=== PATIENT | male | born 1970 | race African-American/Black ===

== ENCOUNTER 2018-04-18 07:54 | Emergency (ER) | payer OTHER, MEDICARE ==
[~2018-04-18] VITALS: Ht 162.6 cm; Wt 97.1 kg
[~2018-04-18 07:54] MED LIST: AC325T PO; AC500T PO; ACYC-109 PO; ALIS1TAB4 PO; ALIS1TAB6 PO; ALPR.5T PO; ALPR1T PO; ALPR1TAB11 PO; ALPR2TAB6 PO; AMIL5TAB3 PO; AML2.5T PO; AML5T; AMLO10TA4; AMLO1TAB15 PO; AMLO1TAB20 PO; AMOX500C2 PO; ARPZ10T PO; ASP81CT PO; ASPI-875 PO; ATOR40TA PO; ATOR40TA70 PO; ATRV10T PO; BYSTOLIC; CEFD300C3 PO; CHLO50TA2 PO; CHOLESTROL MED; CLIN300C3 PO; CLN.1T PO; CLON-378; CLON0.1T14 PO; CLON1PAT15; CLON1PAT15 TD; CLON1PAT16 TP; CLON1PAT22 TD; DOXA2TAB2 PO; DULO30CA PO; DULO60CA6 PO; DXZS2T; DXZS4T PO; FENO45CA PO; GABA-488 PO; HCT25T PO; HYDR-3002 PO; HYDR-3156 PO; HYDR25TA4 PO; ISM60TCR PO; ISOS30TA3 PO; LOVA20TA63 PO; METH4TAB PO; METO200T2 PO; METO200T48 PO; METO50TA7; MINO10TA PO; MTP100TCR; NEBI20TA2 PO; NEBI5TAB8 PO; NFNEB10T PO; NITR0.4T12 SL; NTR.4SL SL; OMEG1CAP51 PO; OMG1KC PO; OXC10TCR PO; OXYC-309 PO; OXYC10TA55 PO; OXYM30SP NS; PNT40TEC PO; SPIR25TA5 PO; TEMA15CA PO; TEMA30CA PO; TOPI50TA13 PO; TOPI50TA37 PO; TORS100T14 PO; TRAM-21 PO; TRAZ150T42 PO; TRM50T PO; VENL150C53 PO; VENL150C98 PO; VENL150T4 PO; VERAPAMIL; VILA40TA PO; ZLP10T PO; [UNRECOGNIZED DRUG - CODE] TD; [UNRECOGNIZED DRUG - OTHER]; [UNRECOGNIZED DRUG - OTHER]; [UNRECOGNIZED DRUG - OTHER]; [UNRECOGNIZED DRUG - OTHER]; [UNRECOGNIZED DRUG - OTHER] PO
--- NOTE | 2018-04-18 08:21 | ED Lower Extremity ---
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 Sunday of last week, 8 days ago the patient was walking his door and stepped off of his porch wrong and rolled his ankle inverted and was having pain in his lateral and medial malleolus as well as his proximal fifth metatarsal. He had the foot imaged at his work and they found no fracture. He was started on tramadol which didn't do anything for his pain. He was not a candidate for NSAIDs per his PCP secondary to his history of heart attack and severe high blood pressure on multiple medications to control his blood pressure. Patient is not on blood thinners. The tramadol did not help so he went back to his PCP who started him on morphine 15 mg twice a day. He says that still not helping much and his ankle was not feeling any better a week out. He says his back hurts but is not really his major source of concern. He has been scheduled for physical therapy but that has not started yet. He has not sought chiropractor, back brace. He is using some patches on his back. He is not using a muscle relaxant. Allergies and Home Medications Allergies Coded Allergies: DOROTHYANo Known Allergies (Verified Allergy, Unknown, 01/01/06) No Known Drug Allergies (Unverified , 01/07/09) Home Medications Alprazolam 2 Mg Tablet, 2 MG PO BID PRN for ANXIETY, (Reported) Amiloride HCl 5 Mg Tablet, 5 MG PO EVERY EVENING, (Reported) Aspirin 81 Mg Tablet.dr, 81 MG PO DAILY, (Reported) Atorvastatin Calcium 40 Mg Tablet, 40 MG PO HS, (Reported) Cefdinir 300 Mg Capsule, 300 MG PO BID, (Reported) FILLED 12/17/15 #20 FOR 10 DAY THERAPY Chlorthalidone 50 Mg Tablet, 50 MG PO DAILY, (Reported) Clonidine 1 Each Patch.tdwk, 0.3 MG TP WEEKLY ON SUNDAY, (Reported) Doxazosin Mesylate 2 Mg Tablet, 2 MG PO BID Prescribed by: RJ LEIVA on 12/24/15 1217 Gabapentin 300 Mg Capsule, 300 MG PO DAILY, (Reported) Isosorbide Mononitrate 60 Mg Tab, 60 MG PO DAILY, (Reported) Metoprolol Succinate 200 Mg Tab.er.24h, 200 MG PO EVERY EVENING, (Reported) Nitroglycerin 0.4 Mg Tab, 0 SL PRN, (Reported) 1 TAB EVERY 5 MINUTES X 3 DOSES NEEDED FOR CHEST PAIN [place]-3 Fatty Acids/Fish Oil 1 Each Capsule, 1,000 MG PO BID, (Reported) Oxycodone HCl 10 Mg Tab.er.12h, 10 MG PO Q12H, (Reported) Spironolactone 25 Mg Tablet, 37.5 MG PO DAILY, (Reported) TAKES 1 & 1/2 OF A (25 MG) TABLET Temazepam 15 Mg Capsule, 15 MG PO HS PRN for SLEEP, (Reported) Topiramate 50 Mg Tablet, 50 MG PO BID, (Reported) Venlafaxine HCl 150 Mg Cap.er.24h, 150 MG PO HS, (Reported) Vilazodone Hydrochloride 40 Mg Tablet, 40 MG PO HS, (Reported) Patient Home Medication List Home Medication List Reviewed: Yes Constitutional: No chills, No diaphoresis EENTM: No ear pain, No double vision Respiratory: No cough, No short of breath Cardiovascular: No chest pain, No Hx of Intervention, No palpitations Gastrointestinal: No abdominal pain, No constipation, No nausea, No vomiting Genitourinary: No discharge, No dysuria Musculoskeletal: see HPI, back pain, joint pain Past Qblvfgl-Shpzei-Vkieez Hx Patient Social History Alcohol Use: Denies Use Recreational Drug Use: No Recent Foreign Travel: No Contact w/Someone Who Travel: No Recent Hopitalizations: No Physical Abuse: No Sexual Abuse: No Mistreated: No Fear: No Immunizations Up To Date Tetanus Booster (TDap): Less than 5yrs Date of Pneumonia Vaccine: Aug 27, 2013 Date of Influenza Vaccine: Aug 27, 2013 Seasonal Allergies Seasonal Allergies: No Past Medical History Cardiac, Orthopedic Cardiac: Yes Heart Attack Neurological: No Reproductive Disorders: No Renal Failure Gastroesophageal Reflux Musculoskeletal: Yes Back Injury Endocrine: Yes HEENT: No Anxiety, Depression Nursing Suicide Risk Score: 0 Integumentary: No Family Medical History Cancer, CAD Under 55 Years Old, Diabetes, Hypertension Physical Exam Vital Signs Capillary Refill : Height, Weight, BMI Height: 5'4.00" Weight: 206lbs. 9.3oz. [id number]; 35.5 BMI Method:Estimated General Appearance: WD/WN, no apparent distress HEENT: PERRL/EOMI, pharynx normal Neck: non-tender, full range of motion, normal inspection Cardiovascular: normal peripheral pulses, regular rate, rhythm Respiratory: no respiratory distress, no accessory muscle use Back: normal inspection, vertebral tenderness (starting at high lumbar low thoracic and going down to sacroiliac joint tenderness to palpation both midline and bilateral paraspinous muscles) Ankles: right ankle non-tender; bilateral ankle normal inspection, bilateral ankle normal range of motion; right ankle no evidence of injury; left ankle bone tenderness (posterior lateral malleoli and medial malleoli are tender to palpation), left ankle pain Feet: right foot non-tender; bilateral foot normal inspection, bilateral foot normal range of motion; right foot no evidence of injury; left foot bone tenderness (proximal head of the fifth metatarsal tenderness to palpation. No tenderness over navicular bone), left foot pain Neurologic/Tendon: normal sensation, normal motor functions, normal tendon functions, responds to pain, no evidence tendon injury Neurologic/Psychiatric: no motor/sensory deficits, alert, normal mood/affect, oriented x 3 Skin: normal color, warm/dry Progress/Results/Core Measures Progress Progress Note : Time: 08:22 Progress Note We can recommend some muscle relaxants, Capsacin oil back brace and continue to pursue physical therapy. We have temperature is expectations for improvement in the next 2-4 weeks for his ankle as opposed to one week. He already has crutches , Ney bandage and has been using ice as well as heat. Give him a day off from work and have him follow-up with the PCP tomorrow. Departure Impression Primary Impression: Sprain and strain of foot Additional Impression: Ankle sprain Qualified Codes: S93.402D - Sprain of unspecified ligament of left ankle, subsequent encounter Disposition: 01 HOME, SELF-CARE Condition: Stable Departure-Patient Inst. Decision time for Depature: 08:24 Referrals: NADIR NOEL MD (PCP/Family) Primary Care Physician Patient Instructions: Ankle Sprain (DC) Add. Discharge Instructions: Take the day off and elevate your ankle above the level of your heart. Use the Ney bandage, pain medicines, Tylenol 1000 mg every 8 hours and heat as well as a back brace for your back as necessary. Follow up with her primary care doctor in the next couple days to discuss further management and pursue physical therapy. All discharge instructions reviewed with patient and/or family. Voiced understanding. Scripts Back Brace (Back Stabilizer) 1 Each Each EACH [facility] for Back Pain, #1 Prov: BLANKA LAUREN 04/18/18 Cyclobenzaprine HCl (Cyclobenzaprine HCl) 10 Mg Tablet 10 MG PO Q8H PRN for SPASMS, #20 TAB 0 Refills Prov: BLANKA LAUREN 04/18/18 Copy Copies To 1: WARREN BROOKS TITUS J Apr 18, 2018 08:21
[2018-04-18] MEDS ORDERED: CYCL10TA9 PO (08:28)
[2018-04-18] MEDS ORDERED: BACK1EAC9 MC (08:28)
[2018-04-18] MEDS ORDERED: MORP15TA (08:37)
[2018-04-18 08:55] VITALS: BP 170/113
--- OUTSIDE RECORDS SUMMARY | 2018-04-18 09:53 | XMS REPORT | Clinical Summary ---
Author Author [facility] Organization [facility] Address Unknown Phone Unavailable Care Team Providers Care Carpet Jack Name Role Phone Lali Purvis Unavailable Unavailable Mychart, Generic Provider Unavailable Unavailable Lynnette Giang Unavailable Unavailable Gertrudis Rutherford MD Unavailable Shae Delgado RN Unavailable Unavailable Lori French MD Unavailable Robbie Busby MD PCP Source Comments Some departments are not documenting in the electronic medical record. If you do not see the information that you expected, contact Release of Information in the Health Information Management department at [phone] for further assistance in locating additional records.[facility] Allergies No Known Allergies Current Medications Prescription Sig. Disp. Refills Start End Date Status Date vilazodone (VIIBRYD) 40 Take 40 mg by mouth at Active mg tab bedtime daily. venlafaxine XR (EFFEXOR Take 150 mg by mouth at Active XR) 150 mg capsule bedtime daily. atorvastatin (LIPITOR) 40 Take 40 mg by mouth at Active mg tablet bedtime daily. gabapentin (NEURONTIN) Take 300 mg by mouth at Active 300 mg capsule bedtime daily. fish oil /omega-3 fatty Take 1 Cap by mouth Active acids (SEA-OMEGA) daily. 340/1000 mg capsule ergocalciferol (VITAMIN Take 1 Cap by mouth every 4 Cap 0 01/04/20 Active D-2) 50,000 unit capsule [address](+) Take 40 mg by mouth at Active (NEXIUM) 40 mg capsule bedtime daily. colchicine 0.6 mg tablet Take 0.6 mg by mouth Active daily. ALPRAZolam(+) (XANAX) 2 Take 2 mg by mouth twice Active mg tablet daily as needed for Anxiety. ibuprofen (ADVIL) 200 mg Take 600 mg by mouth Active tablet twice daily as needed for Pain. Take with food. oxymetazoline (AFRIN) Apply 2 sprays to each Active 0.05 % nasal spray nostril as directed daily as needed. cyclosporine (RESTASIS) Place 1 drop into or Active 0.05 % ophthalmic around eye(s) twice emulsion daily. testosterone cypionate(+) Inject into the muscle Active (DEPO-TESTOSTERONE) 100 every 7 days. mg/mL injection oxyCODONE SR (OXYCONTIN) Take 10 mg by mouth twice Active 10 mg ER tablet daily as needed divalproex (DEPAKOTE ER) Take 500 mg by mouth Active 500 mg ER tablet daily. Take with food. nortriptyline (PAMELOR) Take 10 mg by mouth at Active 10 mg capsule bedtime daily. montelukast (SINGULAIR) Take 10 mg by mouth Active 10 mg tablet daily. metFORMIN (GLUCOPHAGE) Take 500 mg by mouth Active 500 mg tablet daily. amantadine (SYMMETREL) Take 1 tablet by mouth Active 100 mg capsule once daily for 5 days. Then take 1 tablet by mouth twice daily. spironolactone Take 1 tablet by mouth 90 tablet 3 10/21/19 Active (ALDACTONE) 50 mg tablet daily. Take with food. 18 busPIRone (BUSPAR) 10 mg Take 10 mg by mouth Active tablet daily. isosorbide mononitrate SR Take 1 tablet by mouth at 90 tablet 3 Active (IMDUR) 60 mg tablet bedtime daily. 18 doxazosin (CARDURA) 4 mg Take 1 tablet by mouth 180 tablet 3 02/14/20 Active tablet twice daily. 18 carvedilol (COREG) 25 mg Take 1.5 tablets by mouth 270 tablet 3 Active tablet twice daily. 18 amLODIPine (NORVASC) 10 Take 1 tablet by mouth 90 tablet 3 20 Active mg tablet daily. This replaces the 18 combination pill valsartan-amlodipine furosemide (LASIX) 20 mg Take 1 tablet by mouth 90 tablet 3 05/30/20 Active tablet every morning. 18 hydrALAZINE (APRESOLINE) Take 1 tablet by mouth 360 tablet 3 02/26/20 Active 50 mg tabletIndications: three times daily. 18 Essential hypertension chlorthalidone (HYGROTON) Take 1 tablet by mouth 90 tablet 3 02/26/20 Active 25 mg tabletIndications: daily. 18 Essential hypertension Active Problems Problem Noted Date Hypertensive emergency 10/19/2017 Resistant hypertension 07/27/2016 Weakness 02/28/2016 Cellulitis 12/27/2015 CKD (chronic kidney disease) 08/06/2015 Depression 08/06/2015 Hyperlipidemia 08/06/2015 Chest pain 12/17/2014 Hypertension 07/13/2014 Mediastinal mass Encounters Date Type Specialty Care Team Description 2018 Telephone Cardiology Lydia Zuniga RN Blood Pressure Readings (Chlorthalidone 25 mg daily along with Hydralazine 50 mg TID) 02/19/2018 Telephone Cardiology Lydia Zuniga RN Elevated Blood Pressure (200/120) 02/13/2018 Refill Cardiology Lydia Zuniga RN Medication Refill from Last 3 Months Immunizations Name Dates Previously Given Next Due Pneumococcal Vaccine 01/02/2016 (23-Bhavana Adult) Family History Medical History Relation Name Comments Hypertension Brother Coronary Artery Disease Brother Hypertension Brother Cancer Brother MM Cancer-Prostate Father Coronary Artery Disease Father Stroke Father Coronary Artery Disease Mother Hypertension Mother Diabetes Type II Other Stroke Other Relation Name Status Comments Brother Alive Brother Alive Brother Alive Brother Alive Brother Alive Brother Alive Brother Alive Brother cardiomyopathy (Age 45) Brother cardiomyopathy (Age 48) Brother Father Mother Alive Other Other Sister Alive Sister Alive Sister Alive Sister cardiomyopathy (Age 62) Social History Tobacco Use Types Packs/Day Years Used Date Never Smoker Smokeless Tobacco: Never Used Alcohol Use Drinks/Week oz/Week Comments No 0 Standard 0.0 drinks or equivalent Sex Assigned at Date Recorded Not on file Last Filed Vital Signs Vital Sign Reading Time Taken Blood Pressure 142/86 11/15/2017 2:10 PM SOLE LEVELER Pulse 75 11/15/2017 2:10 PM SOLE LEVELER Temperature 36.3 C (97.4 F) 10/21/2017 7:13 AM SOLE LEVELER Respiratory Rate - - Oxygen Saturation 98% 10/21/2017 7:13 AM SOLE LEVELER Inhaled Oxygen - - Concentration Weight 102.1 kg (225 lb) 11/15/2017 2:10 PM SOLE LEVELER Height 162.6 cm (5' 4") 11/15/2017 2:10 PM SOLE LEVELER Body Mass Index 38.62 11/15/2017 2:10 PM SOLE LEVELER Plan of Treatment Health Maintenance Due Date Last Done Comments PHYSICAL (COMPREHENSIVE) 1979 EXAM PERTUSSIS VACCINE 1983 TETANUS VACCINE 1989 INFLUENZA VACCINE 06/17/2018 HIV SCREENING Completed 01/01/2016 Results Not on filefrom Last 3 Months
--- OUTSIDE RECORDS SUMMARY | 2018-04-18 10:03 | XMS REPORT | Encounter Summary ---
Author Author [facility] Organization [facility] Address Unknown Phone Unavailable Care Team Providers Care Aquaculture Farmer Name Role Phone Lali Purvis Unavailable Unavailable Mychart, Generic Provider Unavailable Unavailable Lynnette Giang Unavailable Unavailable Gertrudis Rutherford MD Unavailable Shae Delgado RN Unavailable Unavailable Lori French MD Unavailable Robbie Busby MD PCP Reason for Visit * Reason Comments Blood Pressure Readings Chlorthalidone 25 mg daily along with Hydralazine 50 mg TID Encounter Details Date Type Department Care Team Description 2018 Telephone [facility] Cardiology Lyida Zuniga, OMAR [facility]alidone [address] [place] [address] Hydralazine 50 mg TID) [phone] Social History Tobacco Use Types Packs/Day Years Used Date Never Smoker Smokeless Tobacco: Never Used Alcohol Use Drinks/Week oz/Week Comments No 0 Standard 0.0 drinks or equivalent Sex Assigned at Date Recorded Not on file as of this encounter Functional Status Functional Status Response Date of Assessment Does the patient have a hearing impairment: No 10/19/2017 Does the patient have a visual impairment: Yes 02/22/2016 Does the patient have impaired ambulation: Yes 02/22/2016 Does the patient have an activity of daily living No 02/22/2016 (ADL) impairment: Does the patient have an instrumental activity of No 02/22/2016 daily living (IADL) impairment: Cognitive Status Response Date of Assessment Does the patient have a cognitive impairment: No 02/22/2016 as of this encounter Miscellaneous Notes * Telephone Encounter - Lydia Zuniga RN - 03/06/2018 9:39 AM CDT Attempted to reach patient to discuss Dr. Castro's recommendations for proceeding with allergy testing and shots. Left detailed message to continue current medication regimen while monitoring BP at least 2-3 times/week. Dr. Hill's office will contact patient to set up appointment. * Telephone Encounter - Lydia Zuniga RN - 03/06/2018 9:32 AM CDT Called and spoke with Jean Carlos at Dr. Hill's office regarding Dr. Castro's recommendations for patient to proceed with allergy testing and shots. Will fax documentation to fax# [phone]. * Telephone Encounter - Lydia Zuniga RN - 2018 4:22 PM CDT Mr. Friend called and provided readings from last week after starting Chlorthalidone 25 mg daily along with Hydralazine 50 mg TID. BP 157/74 168/73 148/74 154/84 168/[address] Castro's review of BP readings to proceed with allergy testing and allergy shots. Will route to Dr. Castro for review. Patient plans to continue to monitor BP at home. in this encounter Plan of Treatment Not on fileas of this encounter Visit Diagnoses Not on filein this encounter
--- OUTSIDE RECORDS SUMMARY | 2018-04-18 10:09 | XMS REPORT | Encounter Summary ---
Author Author [facility] Organization [facility] Address Unknown Phone Unavailable Care Team Providers Care Entry Level Account Executive Name Role Phone YanivLali Unavailable Unavailable Mychart, Generic Provider Unavailable Unavailable Lynnette Giang Unavailable Unavailable Gertrudis Rutherford MD Unavailable Shae Delgado RN Unavailable Unavailable Lori French MD Unavailable Robbie Busby MD PCP Reason for Visit * Reason Comments Medication Refill Encounter Details Date Type Department Care Team Description 02/13/2018 Refill [facility] Lydia Zuniga, district captain Refill [facility] [place] [address] Social History Tobacco Use Types Packs/Day Years [...] impairment: No 02/22/2016 as of this encounter Plan of Treatment Not on fileas of this encounter Visit Diagnoses Not on filein this encounter
--- OUTSIDE RECORDS SUMMARY | 2018-04-18 10:09 | XMS REPORT | Encounter Summary ---
Author Author [facility] Organization [facility] Address Unknown Phone Unavailable Care Team Providers Care Milk Treater Name Role Phone Lali Purvis Unavailable Unavailable Mychart, Generic Provider Unavailable Unavailable Lynnette Giang Unavailable Unavailable Gertrudis Rutherford MD Unavailable Shae Delgado RN Unavailable Unavailable Lori French MD Unavailable Robbie Busby MD PCP Reason for Visit * Reason Comments Elevated Blood Pressure 200/120 Encounter Details Date Type Department Care Team Description 02/19/2018 Telephone [facility] Cardiology Lydia Blevins RN Elevated Blood Pressure [facility] [id number] (200/120) [address] [place] [address] Social History Tobacco Use Types [...] as of this encounter Miscellaneous Notes * Addendum Note - Lydia Blevins RN - 02/25/2018 12:01 PM CDT Addended by: LYDIA BLEVINS on: 02/25/2018 12:01 PM Modules accepted: Orders * Telephone Encounter - Lydia Blevins RN - 02/25/2018 11:57 AM CDT Connected with patient. Mr. Friend states he does not recall an intolerance to Chlorthalidone and is willing to try 25 mg daily along with Hydralazine 50 mg TID. Will update med list and send scripts to preferred pharmacy. Patient will keep a log of BP readings over the next week and call with update. * Telephone Encounter - Lydia Blevins RN - 02/25/2018 11:17 AM CDT Discussed with Dr. Castro. Verbal orders to start Chlorthalidone 25 mg daily along with Hydralazine 50 mg TID. Patient has taken Chlorthalidone in the past. If patient states he did not tolerate medication, Dr. Castro would like to hold off on the Chlorthalidone and only start Hydralazine [address] Castro would like to hold off on allergy testing and shots until BP is better controlled. Will call and update office of Dr. Hill. Spoke with OMAR Barahona at Dr. Hill's office. [place] verbalized understanding and agreeable to plan. * Telephone Encounter - Lydia Blevins RN - 02/21/2018 9:42 AM CDT Spoke with [place] at Dr. Hill's office regarding allergy shots. Brooklyn states Dr. Hill is asking for clearance from Dr. Castro for allergy testing and allergy shots. Will discuss with Dr. Castro and fax documentation of recommendation. * Telephone Encounter - Lydia Blevins RN - 02/19/2018 4:43 PM CDT Connected with patient today. He confirms he is taking BP medication as prescribed. Patient states he has not been monitoring BP at home recently, but when he was monitoring it was running 140s/80s. Patient denies headache, dizziness/lightheadedness, heart palpitations, or blurred vision. Patient states, "I'm under a lot of stress right now since I started my new job and I am trying to move." Encouraged patient to monitor BP readings at home and will follow up in one week with those readings. Pt agreeable to plan. While on the phone patient states Dr. Hill needs OK from Dr. Castro to receive "allergy shots." Patient could not provide additional information. Jean Carlos from ENT clinic did not mention this earlier while discussing BP. ENT clinic closed for today. Will attempt to call during office hours. # * Telephone Encounter - Lydia Blevins RN - 02/19/2018 3:20 PM CDT Received call from Jean Carlos at Dr. Hill's office today. Patient was being seen in ENT clinic and BP was 200/120. Jean Carlos states patient said he was taking medication as prescribed. She states he has been having "sinus headaches" and was being seen in the clinic for that today. Patient denied any other symptom at the visit. Jean Carlos states their office called patient's primary care provider who encouraged a call to patient's optical instruments supervisor. Attempted to call and speak with patient regarding medications he has been taking and home BP readings. Left message on machine requesting call back to further discuss. in this encounter Plan of Treatment Not on fileas of this encounter Visit Diagnoses Diagnosis Essential hypertension - Primary Unspecified essential hypertension
--- OUTSIDE RECORDS SUMMARY | 2018-04-18 10:10 | XMS REPORT ---
Author Author [facility] Medical Staff Organization [facility] Address [address], [place] [address] Phone [phone] Summary purpose TRANSITION OF CARE AUTO GENERATION Chief Complaint and Reason for Visit Admit Diagnosis 1 HYPERTENSION NOS Problem list No authorized problems tracked for continuity of care are available for this visit. Encounters No authorized problems tracked for encounter diagnoses are available for this visit. Medications No medications recorded for this patient visit Allergies, adverse reactions, alerts Allergen Category Ingredient Status Reaction Severity Onset No known drug allergies No known drug allergies No known drug allergies Confirmed or Verified Immunizations No immunizations recorded for this patient visit Relevant diagnostic tests and/or laboratory data RESULTS Radiology Results [id number]:00 MRI BRAIN W/WO CONT PACs Image DATE OF EXAM: Apr 16 2015 MRI 0036-MRI BRAIN W/WO CONTRAST : RADIOLOGY REPORT DATE OF SERVICE:04/16/2015 HISTORY:Confusion, dizziness, lightheadedness for 1 month. PRE AND POSTCONTRAST MAGNETIC RESONANCE IMAGING OF THE BRAIN 1255 HOURS Cranial imaging was performed in the sagittal, axial, and coronal planes. 15 mL Magnevist was administered for enhancement. The ventricles are normal. There are no masses or midline shift. There is no hemorrhage or infarction. There are a few small foci of hyperintense FLAIR signal within the white matter measuring up to 3 mm. There is a normal pattern of enhancement. The cerebellum and brainstem are normal. Nerves VII and VIII complexes are within normal limits. The bony calvarium appears normal. IMPRESSION:Minimal foci of chronic microvascular ischemic change in the white matter. Otherwise normal pre- and postcontrast magnetic resonance imaging of the brain. MD RABIA Wilkinson/cc04/16/2015 13:10:00 / 04/16/2015 13:16:12 cc:Dr. Sauceda This document has been electronically Signed by: On: DATE OF EXAM: Apr 16 2015 MRI 0036-MRI BRAIN W/WO CONTRAST : RADIOLOGY REPORT DATE OF SERVICE:04/16/2015 HISTORY:Confusion, dizziness, lightheadedness for 1 month. PRE AND POSTCONTRAST MAGNETIC RESONANCE IMAGING OF THE BRAIN 1255 HOURS Cranial imaging was performed in the sagittal, axial, and coronal planes. 15 mL Magnevist was administered for enhancement. The ventricles are normal. There are no masses or midline shift. There is no hemorrhage or infarction. There are a few small foci of hyperintense FLAIR signal within the white matter measuring up to 3 mm. There is a normal pattern of enhancement. The cerebellum and brainstem are normal. Nerves VII and VIII complexes are within normal limits. The bony calvarium appears normal. IMPRESSION:Minimal foci of chronic microvascular ischemic change in the white matter. Otherwise normal pre- and postcontrast magnetic resonance imaging of the brain. Andrea Bailey MD MWD/cc04/16/2015 13:10:00 / 04/16/2015 13:16:12 cc:Dr. Sauceda This document has been electronically Signed by: ANDREA BAILEY On: [id number] Result Amended on 2015-04-21 at 08:55:17. Previous status was [place]. History of procedures Procedure Code Code Type Description Date Performed Performing Physician 98704 CPT-4 MRI BRAIN W/O & W/DYE 04-16-2015 NADIR SAUCEDA A9579 CPT-4 IGNACIO-BASE MR CONTRAST NOS,1ML 04-16-2015 NADIR SAUCEDA Functional status No functional or cognitive status observations are available for this visit. Vital signs No authorized vital signs are available for this visit. Social history No Social History or smoking status observations were recorded for this visit. ( Unknown if ever smoked.) Treatment Plan No treatment plan text is available for this visit. Hospital discharge instructions No discharge instruction text is available for this visit.
--- OUTSIDE RECORDS SUMMARY | 2018-04-18 10:10 | XMS REPORT ---
Author [facility] Medical Staff Organization [facility] Address [address] [place] [address] Phone [phone] Care Team Providers Care Estimating Engineer Name Role Phone NADIR SAUCEDA MD PP [phone] Summary purpose TRANSITION OF CARE AUTO GENERATION Chief Complaint and Reason for Visit No authorized Reason for Visit (Admitting Diagnosis) is available for this visit. Problem list No authorized problems tracked for continuity of care are available for this visit. Encounters No authorized problems tracked for encounter diagnoses are available for this visit. Medications No home medications recorded for this patient visit Allergies, adverse reactions, alerts Allergen Category Ingredient Status Reaction Severity Onset No known drug allergies No known drug allergies No known drug allergies Confirmed or Verified Immunizations No immunizations recorded for this patient visit Relevant diagnostic tests and/or laboratory data No authorized results are available for this patient visit History of procedures No procedures recorded for this patient visit. Functional status No functional or cognitive status [...]
--- OUTSIDE RECORDS SUMMARY | 2018-04-18 10:10 | XMS REPORT ---
Author Author [facility] Medical Staff Organization [facility] Address [address] [place], [place] [address] Phone [phone] Care Team Providers Care Multiskill Operator Name Role Phone NADIR SAUCEDA MD PP [phone] Summary purpose TRANSITION OF CARE AUTO GENERATION Chief Complaint and Reason for Visit Admit Diagnosis 1 CHEST PAIN NOS Problem list No authorized problems tracked for continuity of care are available for this visit. Encounters No authorized problems tracked for encounter diagnoses are available for this visit. Medications Home Medications Medication Directions Started Status Source Lidoderm topical 1 applicator top 3 Times Daily Cream to legs Current Patient recall atorvastatin 40 mg tablet 1 tablet oral At Bed Time Current Patient medication list clonidine 0.3 mg/24 hr weekly transdermal patch 1 applicator TD Weekly Current Patient medication list Exforge 10 mg-320 mg tablet 1 tablet oral 1 Daily Current Patient medication list hydralazine 25 mg tablet 1 tablet oral 2 Times Daily Current Patient medication list isosorbide mononitrate ER 30 mg tablet,extended release 24 hr 1 tablet oral 1 Daily Current Patient medication list metoprolol succinate ER 200 mg tablet,extended release 24 hr 1 tablet oral 1 Daily Current Patient medication list Nitrostat 0.4 mg sublingual tablet 1 tablet SL As Needed Current Patient medication list oxycodone-acetaminophen 5 mg-325 mg tablet 1 tablet oral PRN Every 6 Hours Current Patient medication list spironolactone 100 mg tablet 1/2 tablet oral 1 Daily Discont Patient medication list temazepam 30 mg capsule 1 tablet oral As Needed Current Patient medication list Xanax 1 mg tablet 1 tablet oral 3 Times Daily Current Patient medication list Trilipix 45 mg capsule,delayed release 1 tablet oral 1 Daily Current Patient medication list Protonix 40 mg tablet,delayed release 1 tablet oral 1 Daily Current Patient medication list Effexor XR 150 mg capsule,extended release 1 tablet oral 1 Daily Current Patient medication list verapamil 80 mg tablet 1 tablet oral 3 Times Daily Current Patient's Pharmacy doxazosin 4 mg tablet 1 tablet oral 2 Times Daily Current Patient's Pharmacy Allergies, adverse reactions, alerts Allergen Category Ingredient Status Reaction Severity Onset No known drug allergies No known drug allergies No known drug allergies Confirmed or Verified Immunizations No immunizations recorded for this patient visit Relevant diagnostic tests and/or laboratory data RESULTS Chemistry :00:00 Result Normal Range Units Sodium 141 134-145 mEq/l Potassium L 3.4 3.5-5.1 mEq/l Chloride 104 98-107 mEq/l CO2 23.2 22-28 mEq/l Glucose H 168 70-105 mg/dl BUN 10 7-18 mg/dl Creatinine H 1.48 0.6-1.3 mg/dl Calcium L 8.3 8.4-10.2 mg/dl TP - Total Protein 7.5 6.0-8.3 g/dl Albumin 3.5 3.5-5 g/dl Bilirubin - Total 0.5 0.1-1.0 mg/dl AST 23 10-42 IU/L ALT 32 12-65 IU/L ALP 65 39-107 IU/L Osmolality 284.2 280-300 mOsm/L Albumin/Globulin Ratio 0.9 0-8 Anion GAP 13.8 8-16 BUN/Creatinine Ratio L 6.8 10-20 Estimated GFR 63 >=60 mL/min/1.7 Hematology :00:00 Result Normal Range Units WBC 9.9 4.8-10.8 103/uL RBC 4.8 4.7-6.1 106/uL HGB 14.2 13.0-18.0 g/dl HCT L 41.6 41.9-52.0 % MCV 86.8 80-94 FL MCH 29.6 27-31 pg MCHC 34.1 33-37 g/dl RDW 15.0 11.5-15.5 % PLT 246 130-400 103/uL MPV H 12.3 7.3-10.4 FL Cardiac :00:00 Result Normal Range Units CK 234 39-308 IU/L CKMB 1.4 0-3.6 ng/ml Patient samples may contain heterophilic antibodies that could react with immunoassays to give falsely elevated or depressed results. This Dimension assay has been designed to minimize interference from heterophilic antibodies. Nevertheless, complete elimination of this interference from all patient specimens cannot be guaranteed. A test result that is inconsistent with the clinical picture and patient history should be interpreted with caution. Troponin I < 0.04 0.0-0.4 ng/ml Patient samples may contain heterophilic antibodies that could react in immunoassays to give falsely elevated or depressed results. This Dimension assay has been designed to minimize interference from heterophilic antibodies. Nevertheless, complete elimination of this interference from all patient specimens cannot be guaranteed. A test result that is inconsistent with the clinical picture and patient history should be interpreted with caution. Radiology Results [id number]:00:00 Result Normal Range Units MPV H 12.3 7.3-10.4 FL History of procedures Procedure Code Code Type Description Date Performed Performing Physician 19039 CPT-4 ASSAY OF TROPONIN, QUANT 12-16-2014 RENE FELIPE 13915 CPT-4 ASSAY OF CK (CPK) 12-16-2014 RENE FELIPE 58106 CPT-4 COMPREHEN METABOLIC PANEL 12-16-2014 RENE FELIPE 58560 CPT-4 CREATINE, MB FRACTION 12-16-2014 RENE FELIPE 49328 CPT-4 COMPLETE CBC, AUTOMATED 12-16-2014 RENE FELIPE 98907 CPT-4 ELECTROCARDIOGRAM, TRACING 12-16-2014 RENE FELIPE A9270 CPT-4 NON-COVERED ITEM OR SERVICE 12-16-2014 RENE FELIPE A9270 CPT-4 NON-COVERED ITEM OR SERVICE 12-16-2014 RENE FELIPE 72760 CPT-4 ROUTINE VENIPUNCTURE 12-16-2014 RENE FELIPE 85249 CPT-4 EMERGENCY DEPT VISIT 12-16-2014 RENE FELIPE 45656 CPT-4 EMERGENCY DEPT VISIT 12-16-2014 RENE FELIPE Functional status Functional Status Finding Observation Time Abdomen Appearance round 96-56-135417:15 Abdomen soft 72-59-257774:15 Bowel Sounds present 59-46-446874:15 Ritchie no 40-29-352059:15 Urination normal 27-43-813750:15 Quality sym/unlabored 75-43-743014:15 Secretions no 92-60-183751:15 Breath Sounds RUL clear 89-71-805195:15 Breath Sounds RML clear 36-06-794465:15 Breath Sounds RLL clear 43-98-699603:15 Breath Sounds YARED clear 63-39-367927:15 Breath Sounds LLL clear 02-91-906941:15 Airway natural 32-11-503666:15 Chest Tube no 77-57-173432:15 Oxygen no :25 Temp >100.4 no :15 Temp <96.8 no :15 Chills with rigors no 11-33-761540:15 HR > 90bpm yes :15 Respirations > 20 no :15 Systolic <90 no :15 headache stiff neck no :15 IV Site Location L AC :30 IV Type peripheral :30 IV Site Information discontinued :30 IV Site Patrick 20 13-84-952406:10 IV Site Appearance WNL 19-93-503534:10 IV Site Color clear 00-19-837656:10 IV Site Patent yes [id number]:10 Dressing Type occlusive 17-89-547159:10 Nursing Note pt dismissed to home with new prescription and instructions for new medications, reinforced importance of making follow up appt with provider on sunday, verbalized understanding, pt stated he would come back if chest pain returns or any other problems :30 Vital signs Type Value Date Respiration Rate 18breaths per minute :25 Pulse 84beats per minute :25 Oxygen Saturation 98% :25 BP Systolic 160mmHg :25 BP Diastolic 90mmHg :25 Temperature 98.0F :25 Social history Type Value Smoking Status NEVER SMOKER Treatment Plan No treatment plan text is available for this visit. Hospital discharge instructions Dismissal Condition good Disposition on DC home DC Inst/Educ Give yes Med/Side Effects Rev yes Flu Vac no
--- OUTSIDE RECORDS SUMMARY | 2018-04-18 10:10 | XMS REPORT | Referral Summary ---
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, or unspecified Final: Chronic kidney disease, Stage III (moderate) Final: HEADACHE Final: DIZZINESS AND GIDDINESS Final: UNSPECIFIED CHEST PAIN Final: HEART DISEASE, UNSPECIFIED Discharge Disposition: 01-Home or Self Care Attending Physician: Lili Gu DO Admitting Physician: Aashish Mari MD Vital Signs Most recent to 1 oldest [Reference Range]: Temperature Oral 36.6 degC [35.8-37.3 degC] (04/12/15 3:49 PM) Peripheral Pulse 73 bpm Rate [60-100 bpm] (04/12/15 3:49 PM) Respiratory Rate 20 br/min [14-20 br/min] (04/12/15 3:49 PM) Blood Pressure 114/69 mmHg [90-140/60-90 mmHg] (04/12/15 4:00 PM) SpO2 97 % (04/12/15 3:49 PM) Problem List Condition Effective Dates Status Health Status Informant Acute Active pain(Confirmed) At risk for Active falls(Confirmed)1 Knowledge Active deficit(Confirmed)2 1This problem was added by Discern Expert. 2Problem added automatically by system based on initiation of Knowledge Deficit Plan of Care Allergies, Adverse Reactions, Alerts No Known Allergies Medications aMILoride 5 mg, Oral, Daily, 0 Refill(s) Start Date: 04/09/15 Status: Ordered aspirin 81 mg, Chewed, Daily, 0 Refill(s) Start Date: 04/09/15 Status: Ordered Cardura 4 mg, Oral, BID, 0 Refill(s) Start Date: 04/09/15 Status: Ordered Claritin 10 mg, Oral, Daily, 0 Refill(s) Start Date: 04/09/15 Status: Ordered cloNIDine 0.1 mg/24 hr transdermal film, extended release 1 patches, Topical, q7day, # 5 patches, 0 Refill(s) Start Date: 04/11/15 Status: Ordered Effexor XR 75 mg oral capsule, extended release 75 mg 1 caps, Oral, Daily, do not crush or chew with food take for 1 week then decrease to lower level per PCP, # 7 caps, 0 Refill(s) Start Date: 04/10/15 Status: Ordered Exforge 10 mg-320 mg oral tablet 1 tabs, Oral, Daily, 0 Refill(s) Start Date: 04/09/15 Status: Ordered Fish Oil 2,000 mg, Oral, Daily, 0 Refill(s) Start Date: 04/09/15 Status: Ordered gabapentin 300 mg, Oral, Bedtime (once a day), 0 Refill(s) Start Date: 04/09/15 Status: Ordered hydrALAZINE 50 mg, Oral, QID, 0 Refill(s) Start Date: 04/09/15 Status: Ordered Imdur 60 mg, Oral, qAM, 0 Refill(s) Start Date: 04/09/15 Status: Ordered LamISIL 250 mg, Oral, Daily, 0 Refill(s) Start Date: 04/09/15 Status: Ordered Lipitor 40 mg, Oral, Daily, 0 Refill(s) Start Date: 04/09/15 Status: Ordered Percocet 5/325 oral tablet 1 tabs, Oral, q6hr, as needed for pain, 0 Refill(s) Start Date: 04/09/15 Status: Ordered potassium chloride 20 mEq oral tablet, extended release 20 mEq 1 tabs, Oral, Daily, 0 Refill(s) Start Date: 04/09/15 Status: Ordered Protonix 40 mg, Oral, Daily, 0 Refill(s) Start Date: 04/09/15 Status: Ordered Restasis 0.05% ophthalmic emulsion 1 drops, Eye-Both, q12hr, 0 Refill(s) Start Date: 04/09/15 Status: Ordered Restoril 30 mg, Oral, Bedtime (once a day), 0 Refill(s) Start Date: 04/09/15 Status: Ordered Toprol-XL 100 mg, Oral, Daily, 0 Refill(s) Start Date: 04/09/15 Status: Ordered Viibryd 40 mg, Oral, Daily, 0 Refill(s) Start Date: 04/09/15 Status: Ordered Xanax 2 mg, Oral, TID, as needed for anxiety, 0 Refill(s) Start Date: 04/09/15 Status: Ordered Results Hematology Most recent to 1 oldest [Reference Range]: WBC [4.8-10.8 9.6 10*3/uL 10*3/uL] (04/12/15 6:28 AM) RBC [4.60-6.20 4.88 10*6/uL 10*6/uL] (04/12/15 6:28 AM) Hgb [14.0-18.0 14.6 gm/dL gm/dL] (04/12/15 6:28 AM) Hct [42.0-52.0 %] 43.1 % (04/12/15 6:28 AM) MCV [82.0-99.0 fL] 88.3 fL (04/12/15 6:28 AM) MCH [27.0-32.0 pg] 29.9 pg (04/12/15 6:28 AM) MCHC [32.0-36.0 33.9 gm/dL gm/dL] (04/12/15 6:28 AM) RDW [11.5-14.5 %] 15.1 % *HI* (04/12/15 6:28 AM) Platelet [150-400 271 10*3/uL 10*3/uL] (04/12/15 6:28 AM) MPV [9.4-12.3 fL] 11.6 fL (04/12/15 6:28 AM) Neutrophils [51-75 61 % %] (04/10/15 6:04 AM) Lymphocytes [20-46 34 % %] (04/10/15 6:04 AM) Abn Lymph Man 2 % (04/10/15 6:04 AM) Monocytes [4-11 %] 3 % *LOW* (04/10/15 6:04 AM) Eosinophils [0-4 %] 1 % (04/10/15 6:04 AM) Basophils [0-2 %] 0 % (04/10/15 6:04 AM) Neutro Absolute 6.95 10*3 [1.90-7.00 10*3] (04/10/15 6:04 AM) Lymph Absolute 4.10 10*3 [0.80-3.30 10*3] *HI* (04/10/15 6:04 AM) [place] Absolute 0.34 10*3 [0.30-1.00 10*3] (04/10/15 6:04 AM) Eos Absolute 0.11 10*3 [0.00-0.50 10*3] (04/10/15 6:04 AM) Baso Absolute 0.02 10*3 [0.00-0.20 10*3] (04/10/15 6:04 AM) Nucleated RBC 0.0 /100 WBC Automated [0 /100 (04/10/15 6:04 AM) WBC] Differential Reviewed (04/10/15 6:04 AM) Chemistry Most recent to 1 oldest [Reference Range]: Sodium Lvl [136-144 139 mEq/L mEq/L] (04/12/15 6:28 AM) Potassium Lvl 4.3 mEq/L 1 [3.6-5.1 mEq/L] (04/12/15 6:28 AM) Chloride [99-109 107 mEq/L mEq/L] (04/12/15 6:28 AM) CO2 [22-32 mEq/L] 27 mEq/L (04/12/15 6:28 AM) AGAP [3-20] 5 (04/12/15 6:28 AM) BUN [4-20 mg/dL] 24 mg/dL *HI* (04/12/15 6:28 AM) Glucose Lvl [70-100 109 mg/dL mg/dL] *HI* (04/12/15 6:28 AM) Creatinine Lvl 1.71 mg/dL [0.64-1.27 mg/dL] *HI* (04/12/15 6:28 AM) eGFR [>60] 44 2 *ABN* (04/12/15 6:28 AM) Calcium Lvl 9.8 mg/dL [8.6-10.0 mg/dL] (04/12/15 6:28 AM) Albumin Lvl [3.5-4.8 3.7 gm/dL gm/dL] (04/09/15 12:53 PM) Total Protein 7.1 gm/dL [6.1-7.9 gm/dL] (04/09/15 12:53 PM) Globulin [1.9-4.3 3.4 gm/dL gm/dL] (04/09/15 12:53 PM) ALT [17-63 U/L] 24 U/L (04/09/15 12:53 PM) AST [15-41 U/L] 24 U/L (04/09/15 12:53 PM) Alk Phos [26-104 60 U/L U/L] (04/09/15 12:53 PM) Bili Total [0.2-1.2 0.9 mg/dL 3 mg/dL] (04/09/15 12:53 PM) Magnesium Lvl 2.2 mg/dL [1.8-2.5 mg/dL] (04/11/15 6:10 AM) Phosphorus [2.4-4.7 4.3 mg/dL 4 mg/dL] (04/11/15 6:10 AM) BNP [0-99 pg/mL] 58 pg/mL (04/09/15 12:53 PM) Troponin [<0.06 <0.05 ng/mL ng/mL] (04/10/15 12:27 AM) Cortisol AM [7-18 12 mcg/dL mcg/dL] (04/10/15 6:04 AM) TSH with Reflex Free 1.36 T4 [0.35-5.50] (04/10/15 6:04 AM) Aldosterone-[place] 9.2 ng/dL 5 [<=21 ng/dL] (04/09/15 3:09 PM) Renin Activity-[place] 0.6 6 (04/09/15 3:09 PM) 1Result Comment: Hemolyzed specimen. The following test may be affected: Potassium. 2Result Comment: Multiply eGFR results by 1.21 for race. 3Result Comment: Naproxen, specifically the metabolite O-desmethylnaproxen, may cause spurious elevation in Total Bilirubin levels. 4Result Comment: High dosages of liposomal Amphotericin B (AmBisome) therapy or other drug preparations that use a liposomal envelope to facilitate drug delivery may cause falsely elevated results for phosphorus. 5Result Comment: ADDITIONAL INFORMATION Reference range for patients 11 years and older is based on upright A.M. collection from subjects without sodium restrictions. Test Performed by: [place] [address] Detective Chief: Kenny De Oliveira II, M.D., Ph.D. 6Result Comment: REFERENCE VALUE (Peripheral vein specimen) Na-deplete, upright: Mean: 5.9 Range: 2.9-10.8 Na-replete, upright: Mean: 1.0 Range: <=0.6-3.0 Test Performed by: [place] [address] Detective Chief: Kenny De Oliveira II, M.D., Ph.D. Urinalysis Most recent to 1 oldest [Reference Range]: UA Color Dk Yellow (04/10/15 2:06 PM) UA Appear Clear (04/10/15 2:06 PM) UA pH [5.0-8.0] 5.0 (04/10/15 2:06 PM) UA Leuk Est Negative [Negative] (04/10/15 2:06 PM) UA Nitrite Negative [Negative] (04/10/15 2:06 PM) UA Protein Negative [Negative] (04/10/15 2:06 PM) UA Glucose Negative [Negative] (04/10/15 2:06 PM) UA Ketones Negative [Negative] (04/10/15 2:06 PM) UA Urobilinogen Negative [<1.0] (04/10/15 2:06 PM) UA Bili [Negative] Negative (04/10/15 2:06 PM) UA Blood [Negative] Negative (04/10/15 2:06 PM) UA Spec Grav 1.023 [1.003-1.030] (04/10/15 2:06 PM) Type Voided (04/10/15 2:06 PM) Immunizations No data available for this section Procedures Procedure Date Related Diagnosis Body Site Angiogram1 1pt does not remember if they put in stents Social History Social History Type Response Smoking Status Never smoker Assessment and Plan No data available for this section
--- OUTSIDE RECORDS SUMMARY | 2018-04-18 10:10 | XMS REPORT ---
Author Author [facility] Medical Staff Organization [facility] Address [address], [place] [address] Phone [phone] Care Team Providers Care Car Installations Supervisor Name Role Phone NADIR SAUCEDA MD PP [phone] Summary purpose TRANSITION OF CARE AUTO GENERATION [...] diagnostic tests and/or laboratory data RESULTS Chemistry [id number]:00:00 Result Normal Range Units Sodium 140 134-145 mEq/l Potassium 3.8 3.5-5.1 mEq/l Chloride 103 98-107 mEq/l CO2 24.8 22-28 mEq/l Glucose H 120 70-105 mg/dl BUN H 20 7-18 mg/dl Creatinine H 1.67 0.6-1.3 mg/dl Calcium 9.0 8.4-10.2 mg/dl Osmolality 283.2 280-300 mOsm/L Anion GAP 12.2 8-16 BUN/Creatinine Ratio 12.0 10-20 Estimated GFR L 55 >=60 mL/min/1.7 Reference Lab (Sendout) [id number]:00:00 Result Normal Range Units Aldosterone 10 ng/dL Adult Reference Ranges for Aldosterone, LC/MS/MS: Upright 8:00-10:00 am< or=28 ng/dL Upright 4:00-6:00 pm < or=21 ng/dL Supine8:00-10:00 am3-16 ng/dL TEST PERFORMED AT: [facility] [address] [place] [address] JESSIE STAFFORD MD PHD Renin 0.77 0.25-5.82 TEST PERFORMED AT: [facility] [address] [place] [address] JESSIE STAFFORD MD PHD Cortisol 9.3 mcg/dL Reference Range: For 8 a.m.(7-9 a.m.) Specimen: 4.0-22.0 Reference Range: For 4 p.m.(3-5 p.m.) Specimen: 3.0-17.0 * Please interpret above results accordingly * TEST PERFORMED AT: [facility] [place] [address] [place] [address] SAMUEL BURLESON DO,MPH Thyroid Testing [id number]:00:00 Result Normal Range Units TSH 1.68 0.34-4.82 uIU/mL History of procedures Procedure Code Code Type Description Date Performed Performing Physician 54906 CPT-4 METABOLIC PANEL TOTAL CA 12-24-2014 SHANTELL PETERSEN 05407 CPT-4 ASSAY OF RENIN 12-24-2014 SHANTELL PETERSEN 72902 CPT-4 ASSAY OF ALDOSTERONE 12-24-2014 SHANTELL PETERSEN 29176 CPT-4 TOTAL CORTISOL 12-24-2014 SHANTELL PETERSEN 04335 CPT-4 ASSAY THYROID STIM HORMONE 12-24-2014 SHANTELL PETERSEN 18331 CPT-4 ROUTINE VENIPUNCTURE 12-24-2014 SHANTELL PETERSEN 58327 CPT-4 ROUTINE VENIPUNCTURE 12-24-2014 SHANTELL ALEJANDROPTA Functional status No functional or cognitive status [...]
--- OUTSIDE RECORDS SUMMARY | 2018-04-18 10:10 | XMS REPORT ---
Author Author [facility] Medical Staff Organization [facility] Address [address] [place], [place] [address] Phone [phone] Care Team Providers Care Customer Sales Advisor Name Role Phone NADIR SAUCEDA MD PP [phone] Summary purpose TRANSITION OF CARE AUTO GENERATION [...] diagnostic tests and/or laboratory data RESULTS Chemistry [id number]:00:00 Result Normal Range Units Sodium 140 134-145 mEq/l Potassium 3.8 3.5-5.1 mEq/l Chloride 103 98-107 mEq/l CO2 24.8 22-28 mEq/l Glucose H 120 70-105 mg/dl BUN H 20 7-18 mg/dl Creatinine H 1.67 0.6-1.3 mg/dl Calcium 9.0 8.4-10.2 mg/dl Osmolality 283.2 280-300 mOsm/L Anion GAP 12.2 8-16 BUN/Creatinine Ratio 12.0 10-20 Estimated GFR L 55 >=60 mL/min/1.7 Thyroid Testing [id number]:00 Result Normal Range Units TSH 1.68 0.34-4.82 uIU/mL History of procedures No procedures recorded for [...]
--- OUTSIDE RECORDS SUMMARY | 2018-04-18 10:11 | XMS REPORT ---
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 Making Machine Operator Name Role Phone NADIR BUSBY MD PP [phone] Summary purpose TRANSITION OF CARE AUTO GENERATION [...] mg tablet 1/2 tablet oral 1 Daily Current Patient medication list temazepam 30 mg capsule [...] oral 1 Daily Current Patient medication list Allergies, adverse reactions, alerts Allergen Category Ingredient Status Reaction Severity Onset No known drug allergies No known drug allergies No known drug allergies Confirmed or Verified Immunizations No immunizations recorded for this patient visit Relevant diagnostic tests and/or laboratory data RESULTS Chemistry :45:00 Result Normal Range Units Sodium 144 134-145 mEq/l Potassium 3.6 3.5-5.1 mEq/l Chloride 107 98-107 mEq/l CO2 26.6 22-28 mEq/l Glucose 99 70-105 mg/dl BUN 18 7-18 mg/dl Creatinine H 2.03 0.6-1.3 mg/dl Calcium 9.0 8.4-10.2 mg/dl TP - Total Protein 7.7 6.0-8.3 g/dl Albumin 3.7 3.5-5 g/dl Bilirubin - Total 0.5 0.1-1.0 mg/dl AST 25 10-42 IU/L ALT 32 12-65 IU/L ALP 66 39-107 IU/L Osmolality 288.8 280-300 mOsm/L Albumin/Globulin Ratio 0.9 0-8 Anion GAP 10.4 8-16 BUN/Creatinine Ratio L 8.9 10-20 Estimated GFR L 44 >=60 mL/min/1.7 Hematology :45:00 Result Normal Range Units WBC H 13.7 4.8-10.8 103/uL RBC 4.9 4.7-6.1 106/uL HGB 14.4 13.0-18.0 g/dl HCT 42.8 41.9-52.0 % MCV 87.5 80-94 FL MCH 29.4 27-31 pg MCHC 33.6 33-37 g/dl RDW 14.9 11.5-15.5 % PLT 239 130-400 103/uL MPV H 11.8 7.3-10.4 FL Cardiac :45:00 Result Normal Range Units CK H 335 39-308 IU/L CKMB 1.2 0-3.6 ng/ml Patient samples may contain heterophilic [...] should be interpreted with caution. Troponin I 0.13 0.0-0.4 ng/ml Patient samples may contain heterophilic [...] should be interpreted with caution. Radiology Results 30-30-642546:20:00 Chest XRay - Port - 1 View PACs Image DATE OF EXAM: Dec 14 2014 RAD 0292-CHEST 1 VIEW PORT : RADIOLOGY REPORT DATE OF SERVICE: 12/14/14 HISTORY: Patient has hypertension and chest pain. PORTABLE ONE VIEW CHEST 2250 HOURS Heart and mediastinum are unremarkable. Lungs are clear. No effusion is seen. IMPRESSION: Negative study of the chest unchanged from 05/21/2014. Wellington Thomas DO /nd 12/15/2014 08:33:00 / 12/15/2014 09:43:32 cc:Dr. Nadir Busby This document has been electronically Signed by: On: 01-61-593636:45:00 Result Normal Range Units MPV H 11.8 7.3-10.4 FL History of procedures No procedures recorded for this patient visit. Functional status Functional Status Finding Observation Time Abdomen Appearance flat 41-50-024713:36 Abdomen soft 61-43-629009:36 Bowel Sounds present 16-19-155460:36 Urination normal 34-86-365342:36 Quality sym/unlabored 52-34-681277:36 Secretions no :36 Breath Sounds RUL clear 86-90-674854:36 Breath Sounds RML clear 49-09-136462:36 Breath Sounds RLL clear 66-97-150666:36 Breath Sounds YARED clear 53-00-565659:36 Breath Sounds LLL clear 93-40-065574:36 Airway natural 98-15-510719:36 Chest Tube no 79-67-133796:36 Oxygen no 73-85-205771:00 Temp >100.4 no 46-87-667562:36 Temp <96.8 no 55-81-082390:36 Chills with rigors no 03-69-216493:36 HR > 90bpm yes :36 Respirations > 20 no :36 Systolic <90 no :36 headache stiff neck no :36 Nursing Note Pt was given home instructions and Pt was amblatory off of floor in stable condtion :15 Vital signs Type Value Date Respiration Rate 20breaths per minute 29-73-752027:00 Pulse 92beats per minute :00 Oxygen Saturation 99% :00 BP Systolic 178mmHg :00 BP Diastolic 117mmHg :00 Temperature 97.8F :00 Weight 209LB 07-49-761324:15 Social history Type Value Smoking Status NEVER SMOKER Treatment Plan No treatment plan text is available for this visit. Hospital discharge instructions Dismissal Condition fair Disposition on DC home DC Inst/Educ Give yes Flu Vac no
--- OUTSIDE RECORDS SUMMARY | 2018-04-18 10:11 | XMS REPORT ---
Author [facility] Medical [facility] Organization [facility] Address [address] [place] [id number] Phone [phone] Care Team Providers Care Winemaker Name Role Phone NADIR SAUCEDA MD PP [phone] Summary purpose TRANSITION OF CARE AUTO GENERATION [...] should be interpreted with caution. Radiology Results :00:00 Result Normal Range Units MPV H 12.3 7.3-10.4 FL History of procedures No procedures recorded for this patient visit. Functional status Functional Status Finding Observation Time Abdomen Appearance round 49-59-225016:15 Abdomen soft 67-13-192258:15 Bowel Sounds present 15-17-520957:15 Ritchie no 24-32-820871:15 Urination normal :15 Quality sym/unlabored :15 Secretions no :15 Breath Sounds RUL clear 76-33-565398:15 Breath Sounds RML clear 78-38-251065:15 Breath Sounds RLL clear :15 Breath Sounds YARED clear :15 Breath Sounds LLL clear 69-89-716620:15 Airway natural :15 Chest Tube no :15 Oxygen no :25 Temp >100.4 no :15 Temp <96.8 no :15 Chills with rigors no :15 HR > 90bpm yes :15 Respirations > 20 no :15 Systolic <90 no :15 headache stiff neck no :15 IV Site Location L AC :30 IV Type peripheral :30 IV Site Information discontinued :30 IV Site Patrick 20 43-66-587510:10 IV Site Appearance WNL :10 IV Site Color clear 49-37-660200:10 IV Site Patent yes 33-15-321378:10 Dressing Type occlusive 61-78-407166:10 Nursing Note pt dismissed to home with [...] BP Systolic 160mmHg :25 BP Diastolic 90mmHg 33-41-576681:25 Temperature 98.0F 76-58-853475:25 Social history Type Value Smoking Status NEVER SMOKER Treatment Plan No treatment plan text is available for this visit. Hospital discharge instructions Dismissal Condition good Disposition on DC home DC Inst/Educ Give yes Med/Side Effects Rev yes Flu Vac no
--- OUTSIDE RECORDS SUMMARY | 2018-04-18 10:11 | XMS REPORT ---
Author Author [facility] Medical Staff Organization [facility] Address [address], [place] [address] Phone [phone] Care Team Providers Care Social Work Associate Name Role Phone NADIR SAUCEDA MD PP [phone] Summary purpose TRANSITION OF CARE AUTO GENERATION Chief Complaint and Reason for Visit Admit Diagnosis 1 HTN CKD NOS I-IV/NOS Problem list No authorized problems tracked for [...] diagnostic tests and/or laboratory data RESULTS Chemistry 51-31-190108:40:00 Result Normal Range Units Sodium 143 134-145 mEq/l Potassium 3.6 3.5-5.1 mEq/l Chloride 104 98-107 mEq/l CO2 H 28.1 22-28 mEq/l Glucose H 116 70-105 mg/dl BUN 9 7-18 mg/dl Creatinine H 1.32 0.6-1.3 mg/dl Calcium 8.8 8.4-10.2 mg/dl PO4 3.0 1.9-4.5 mg/dl Albumin 3.5 3.5-5 g/dl Osmolality 284.6 280-300 mOsm/L Anion GAP 10.9 8-16 BUN/Creatinine Ratio L 6.8 10-20 Estimated GFR 72 >=60 mL/min/1.7 History of procedures Procedure Code Code Type Description Date Performed Performing Physician 99461 CPT-4 RENAL FUNCTION PANEL 03-29-2015 MILES FAUST 32210 CPT-4 ROUTINE VENIPUNCTURE 03-29-2015 MILES FAUST Functional status No functional or cognitive status [...]
--- OUTSIDE RECORDS SUMMARY | 2018-04-18 10:11 | XMS REPORT ---
Author [facility] Medical Staff Organization [facility] Address [address] [place] [id number] Phone [phone] Care Team Providers Care Annual Greenhouse Manager Name Role Phone NADIR SAUCEDA MD PP [phone] Summary purpose TRANSITION OF CARE AUTO GENERATION [...]
--- OUTSIDE RECORDS SUMMARY | 2018-04-18 10:11 | XMS REPORT ---
Author Author [facility] [employer] [facility] Medical Staff Organization [facility] Address [address] [place], [place] [address] Phone [phone] Summary purpose TRANSITION OF CARE AUTO GENERATION [...]
--- OUTSIDE RECORDS SUMMARY | 2018-04-18 10:11 | XMS REPORT ---
Author [facility] [employer] [facility] Medical Staff Organization [facility] Address [address], [place] [address] Phone [phone] Care Team Providers Care Food And Drug Inspector Name Role Phone NADIR BUSBY MD PP [phone] Summary purpose TRANSITION OF CARE AUTO GENERATION [...] should be interpreted with caution. Radiology Results 42-09-938002:20:00 Chest XRay - Port - 1 View PACs Image DATE OF EXAM: Dec 14 2014 RAD 0292-CHEST 1 VIEW PORT : RADIOLOGY REPORT DATE OF SERVICE: 12/14/14 HISTORY: Patient has hypertension and chest pain. PORTABLE ONE VIEW CHEST 2250 HOURS Heart and mediastinum are unremarkable. Lungs are clear. No effusion is seen. IMPRESSION: Negative study of the chest unchanged from 05/21/2014. DO MARYJANE Light/tesfaye 12/15/2014 08:33:00 / 12/15/2014 09:43:32 cc:Dr. Nadir Busby This document has been electronically Signed by: On: DATE OF EXAM: Dec 14 2014 RAD 0292-CHEST 1 VIEW PORT : RADIOLOGY REPORT DATE OF SERVICE: 12/14/14 HISTORY: Patient has hypertension and chest pain. PORTABLE ONE VIEW CHEST 2250 HOURS Heart and mediastinum are unremarkable. Lungs are clear. No effusion is seen. IMPRESSION: Negative study of the chest unchanged from 05/21/2014. DO Corina Light 12/15/2014 08:33:00 / 12/15/2014 09:43:32 cc:Dr. Nadir Busby This document has been electronically Signed by: ARELI NUGENT DO On: 2014 12:20P Result Amended on 2014-12-16 at 12:22:36. Previous status was CO. 56-50-292309:45:00 Result Normal Range Units MPV H 11.8 7.3-10.4 FL History of procedures Procedure Code Code Type Description Date Performed Performing Physician 65855 CPT-4 COMPLETE CBC, AUTOMATED 12-14-2014 ROSAURA IVAN 27018 CPT-4 COMPREHEN METABOLIC PANEL 12-14-2014 ROSAURA IVAN 08738 CPT-4 CREATINE, MB FRACTION 12-14-2014 ROSAURA IVAN 17740 CPT-4 ASSAY OF TROPONIN, QUANT 12-14-2014 ROSAURA IVAN 01613 CPT-4 ASSAY OF CK (CPK) 12-14-2014 ROSAURA IVAN 02367 CPT-4 CHEST X-RAY 12-14-2014 ROSAURA IVAN 95393 CPT-4 ROUTINE VENIPUNCTURE 12-14-2014 ROSAURA IVAN 70145 CPT-4 ELECTROCARDIOGRAM, TRACING 12-14-2014 ROSAURA IVAN A9270 CPT-4 NON-COVERED ITEM OR SERVICE 12-14-2014 ROSAURA IVAN 82704 CPT-4 EMERGENCY DEPT VISIT 12-14-2014 ROSAURA IVAN 65095 CPT-4 EMERGENCY DEPT VISIT 12-14-2014 ROSAURA IAVN Functional status Functional Status Finding Observation Time Abdomen Appearance flat 24-70-624940:36 Abdomen soft 86-22-592231:36 Bowel Sounds present 00-53-605939:36 Urination normal 28-03-175617:36 Quality sym/unlabored 72-20-687356:36 Secretions no :36 Breath Sounds RUL clear :36 Breath Sounds RML clear :36 Breath Sounds RLL clear :36 Breath Sounds YARED clear :36 Breath Sounds LLL clear 41-18-379737:36 Airway natural :36 Chest Tube no :36 Oxygen no : Temp >100.4 no 50-57-348302:36 Temp <96.8 no :36 Chills with rigors no :36 HR > 90bpm yes :36 Respirations > 20 no :36 Systolic <90 no 74-39-455618:36 headache stiff neck no :36 Nursing Note Pt was given home instructions and Pt was amblatory off of floor in stable condtion :15 Vital signs Type Value Date Respiration Rate 20breaths per minute 60-85-950764:00 Pulse 92beats per minute :00 Oxygen Saturation 99% 27-94-049124:00 BP Systolic 178mmHg 90-98-760141:00 BP Diastolic 117mmHg :00 Temperature 97.8F 64-92-762825:00 Weight 209LB 30-92-709727:15 Social history Type Value Smoking Status NEVER SMOKER Treatment Plan No treatment plan text is available for this visit. Hospital discharge instructions Dismissal Condition fair Disposition on DC home DC Inst/Educ Give yes Flu Vac no
--- OUTSIDE RECORDS SUMMARY | 2018-04-18 10:14 | XMS REPORT | Clinical Summary ---
Author Author Admin, AKUA Organization [facility] Address Unknown Phone Unavailable Allergies, Adverse Reactions, Alerts Allergy Name Reaction Description Start Date Severity Status Provider No Known Allergies Vanessa August Conditions or Problems Problem Name Problem Code Onset Date Status Entry Date Provider Comment Standard Description Annotate HEALTH EXAMINATION OF DEFINED SUBPOPULATION V70.5 Active Temitope [place] [facility] examination of defined subpopulations Hypertension 401.9 Active Robbie Busby MD Unspecified essential hypertension Hyperlipidemia 272.4 Active Robbie Busby MD Other and unspecified hyperlipidemia Renal failure, chronic 585.9 Active Robbie Busby MD Chronic kidney disease, unspecified Depression/anxiety 300.4 Active Robbie Busby MD Dysthymic disorder Sinusitis 461.9 Resolved Desmond Diaz DO Acute sinusitis, unspecified Low back pain, acute 724.2 Resolved Desmond Diaz DO Lumbago Low back pain, chronic 724.2 Resolved Desmond Diaz DO Lumbago Degenerative arthritis 715.90 Active Robbie Busby MD Osteoarthrosis, unspecified whether generalized or localized, involving unspecified site GERD 530.81 Active Robbie Busby MD Esophageal reflux Bronchitis, acute 466.0 Resolved Desmond Diaz DO Acute bronchitis Seasonal allergies 477.9 Active oRbbie Busby MD Allergic rhinitis, cause unspecified Onychomycosis, toenails 110.1 Resolved Desmond Diaz DO Dermatophytosis of nail Dizziness 780.4 Resolved Desmond Diaz DO Dizziness and giddiness Folliculitis 704.8 Resolved Desmond Diaz DO Other specified diseases of hair and hair follicles Migraine 346.90 Active Robbie Busby MD Migraine, unspecified, without mention of intractable migraine, without mention of status migrainosus BPH 600.00 Active Robbie Busby MD Hypertrophy (benign) of prostate without urinary obstruction and other lower urinary tract (LUTS) Pharyngitis-Acute 462 Resolved Desmond Diaz DO Acute pharyngitis Kidney disease, chronic, stage III 585.3 Active Ca VÁZQUEZA Chronic kidney disease, Stage III (moderate) C V A / Stroke Active Robbie Busby MD Myocardial Infarction: Active Robbie Busby MD Acute myocardial infarction, unspecified site, initial episode of care ( History of) Sleep apnea, chronic 780.57 Active Erin Mai APRN Unspecified sleep apnea Continuous positive airway pressure rx V46.2 Active Erin Mai SCALLOP SHUCKER Other dependence on machines, 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 Fatigue 780.79 Resolved Desmond Diaz DO Other malaise and fatigue Hypertension, secondary, 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 Desmond Diaz DO Other malignant secondary hypertension Tachycardia 785.0 Active Rober Rodríguez SCALLOP SHUCKER Tachycardia, unspecified Insect bite, infected 919.5 Resolved Desmond Diaz DO Insect bite, nonvenomous, of other, multiple, and unspecified sites, infected Abscess, skin 682.9 Resolved Desmond Diaz DO Cellulitis and abscess of unspecified sites URI 465.9 Resolved Desmond Diaz DO Acute upper respiratory infections of unspecified site Hypertension 401.9 Active Rober Rodríguez SCALLOP SHUCKER Unspecified essential hypertension Sinusitis - acute 461.9 Resolved Desmond W Joe DO Acute sinusitis, unspecified Acute confusion 293.0 Resolved Desmond W Joe DO Delirium due to conditions classified elsewhere Headache 784.0 Resolved Desmond W Joe DO Headache Back pain 724.5 Resolved Desmond W Joe DO Backache , unspecified Back pain, thoracic region 724.1 Active Robbie Busby MD Pain in thoracic spine Preventive health care V70.0 Active Gali Negro Routine general medical examination at a health care facility Rib pain, right sided 786.50 Resolved Desmond Dante Joe DO Unspecified chest pain Vitamin D deficiency 268.9 Active Vanessa August Unspecified vitamin D deficiency Myalgias 729.1 Resolved Desmond W Joe DO Myalgia and myositis, unspecified URI 465.9 Resolved Desmond Dante Joe DO Acute upper respiratory infections of unspecified site Hypogonadism, low testosterone 257.2 Active Erin Mai SCALLOP SHUCKER Other testicular hypofunction Low back pain, chronic 724.2 Active Robbie Busby MD Lumbago Bronchitis-Acute 466.0 Inactive Desmond Dante Joe DO Acute bronchitis Polydipsia 783.5 Active Desmond W Joe DO Polydipsia Type 2 diabetes mellitus with hyperglycemia Active Robbie Busby MD Hypertensive chronic kidney disease, malignant, with chronic kidney disease stage V or end stage renal disease 403.01 Active Robbie Busby MD Hypertensive chronic kidney disease, malignant, with chronic kidney disease stage V or end stage renal disease BMI 37-37.9 adult V85.37 Active Robbie Busby MD Body Mass Index 37.0-37.9, adult Sinusitis ICD-461.9 Inactive 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 SPEECH COMMUNICATION INSTRUCTOR 2017 Low back pain, acute ICD-724.2 Inactive 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 SPEECH COMMUNICATION INSTRUCTOR Low back pain, chronic ICD-724.2 Inactive 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 SPEECH COMMUNICATION INSTRUCTOR Bronchitis, acute ICD-466.0 Inactive 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 SPEECH COMMUNICATION INSTRUCTOR Onychomycosis, toenails ICD-110.1 Inactive 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 SPEECH COMMUNICATION INSTRUCTOR Dizziness ICD-780.4 Inactive 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 SPEECH COMMUNICATION INSTRUCTOR 2017 Folliculitis ICD-704.8 Inactive 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 SPEECH COMMUNICATION INSTRUCTOR Pharyngitis-Acute ICD-462 Inactive 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 SPEECH COMMUNICATION INSTRUCTOR Fatigue ICD-780.79 Inactive 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 SPEECH COMMUNICATION INSTRUCTOR 09/20 Hypertension, secondary, malignant ICD-405.09 Inactive 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 SPEECH COMMUNICATION INSTRUCTOR Insect bite, infected ICD-919.5 Inactive 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 SPEECH COMMUNICATION INSTRUCTOR Abscess, skin ICD-682.9 Inactive 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 SPEECH COMMUNICATION INSTRUCTOR URI ICD-465.9 Inactive 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 SPEECH COMMUNICATION INSTRUCTOR Sinusitis - acute ICD-461.9 Inactive 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 SPEECH COMMUNICATION INSTRUCTOR Acute confusion ICD-293.0 Inactive 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 SPEECH COMMUNICATION INSTRUCTOR Headache ICD-784.0 Inactive Emily Solisnae CISSE 09/20 Back pain ICD-724.5 Inactive 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nae CISSE 2017 Rib pain, right sided ICD-786.50 Inactive Emily Rai CISSE Myalgias ICD-729.1 Inactive Emily Rai LOPEZN 09/20 URI ICD-465.9 Inactive Emily Rai LOPEZN Bronchitis-Acute ICD-466.0 Inactive Desmond Diaz DO Medication List Medication Instructions Start Date Stop Date Generic Name NDC Status Provider Patient Instruction IMDUR 60 MG ORAL TABLET EXTENDED RELEASE 24 HOUR 1 po q day ISOSORBIDE MONONITRATE 52623009105 Active Emma Hernandez Active METOPROLOL SUCCINATE ER 200 MG ORAL TABLET EXTENDED RELEASE 24 HOUR take 1 tab po qday for high blood pressure and rapid pulse METOPROLOL SUCCINATE 30536117372 Active Robbie Busby MD Active [id number] 0.3 MG/24HR TRANSDERMAL PATCH WEEKLY apply 2 patches q week for HTN CLONIDINE HCL 71645216153 No Longer Active Robbie Busby MD Active IMDUR 60 MG ORAL TABLET EXTENDED RELEASE 24 HOUR take 1 tab po qday for blood pressure ISOSORBIDE MONONITRATE 39606993779 No Longer Active Robbie Busby MD Active TEMAZEPAM 15 MG ORAL CAPSULE 1 TAB PO Q HS TEMAZEPAM 49247729239 No Longer Active Robbie Busby MD Active TOPIRAMATE 50 MG ORAL TABLET 1 po BID for migraines TOPIRAMATE 89641344623 No Longer Active Robbie Busby MD Active CYCLOBENZAPRINE HCL 10 MG ORAL TABLET 1 tablet by mouth three times daily as needed for muscle spasm/pain CYCLOBENZAPRINE HCL 52566567535 No Longer Active Robbie Busby MD Active TOPROL XL 200 MG ORAL TABLET EXTENDED RELEASE 24 HOUR Take one by mouth daily METOPROLOL SUCCINATE 12150581956 No Longer Active Robbie Busby MD Active METFORMIN HCL 500 MG ORAL TABLET 1 tablet by mouth daily for diabetes type 2 METFORMIN HCL 97721647115 Active Robbie Busby MD Active SINGULAIR 10 MG ORAL TABLET 1 po qday for allergies. MONTELUKAST SODIUM 99846109559 No Longer Active Robbie Busby MD Active PREDNISONE 20 MG ORAL TABLET two tabs by mouth today, then one tab by mouth days two and three PREDNISONE 29236562350 No Longer Active Robbie Busby MD Active AZITHROMYCIN 250 MG ORAL TABLET 2 po qd x 1 day, then 1 po qd x 4 days 09/20 AZITHROMYCIN 37322207281 No Longer Active Desmond Diaz DO Active TOPIRAMATE 50 MG ORAL TABLET take 1 tab po BID for migraines. TOPIRAMATE 27827619439 No Longer Active Desmond Diaz DO Active CYCLOBENZAPRINE HCL 10 MG ORAL TABLET 1 po TID PRN muscle spasm/pain for 10 days CYCLOBENZAPRINE HCL 87764022408 No Longer Active Desmnod Diaz DO Active GUAIFENESIN ER 600 MG ORAL TABLET EXTENDED RELEASE 12 HOUR 1 tab po q am 2016 GUAIFENESIN 71582080691 No Longer Active Robbie Busby MD Active DIVALPROEX SODIUM ER 500 MG ORAL TABLET EXTENDED RELEASE 24 HOUR Once daily DIVALPROEX SODIUM 48644604041 Active Robbie Busby MD Active DEPO-TESTOSTERONE 200 MG/ML INTRAMUSCULAR SOLUTION 1 IM Injections every 2 weeks for low testosterone TESTOSTERONE CYPIONATE 33547146752 Active Zulema Blank LPN Active FLUTICASONE PROPIONATE 50 MCG/ACT NASAL SUSPENSION 2 sprays per nostril bid for 1 week, then 1 spray bid FLUTICASONE PROPIONATE 29358127133 Active Rober Rodríguez APRN Active HYDRALAZINE HCL 25 MG ORAL TABLET Take 1 tab BID. HYDRALAZINE HCL 52051903853 Active Rober Rodríguez APRN Active VITAMIN D3 55912 UNIT ORAL TABLET 2 po weekly CHOLECALCIFEROL 26226066879 Active Robbie Busby MD Active OXYCODONE HCL ER 10 MG ORAL TABLET ER 12 HOUR ABUSE-DETERRENT 1 tab po 3 times qd. OXYCODONE HCL 45161933286 Active Robbie Busby MD Active NITROSTAT 0.4 MG SUBLINGUAL TABLET SUBLINGUAL PRN NITROGLYCERIN 93924653741 No Longer Active Robbie Busby MD Active LORATADINE 10 MG ORAL TABLET 1 tablet by mouth daily for congestion and allergies. LORATADINE 31827752160 No Longer Active Robbie Busby MD Active FLONASE 50 MCG/ACT NASAL SUSPENSION 1 spray each nostril twice daily for allergies and runny nose FLUTICASONE PROPIONATE 13670719490 No Longer Active Robbie Busby MD Active FIORICET 50-300-40 MG ORAL CAPSULE take 1 tab po qday prn migraines. [id number] 31108803568 No Longer Active Robbie Busby MD Active VITAMIN D3 20644 UNIT ORAL CAPSULE 2 CAPS PO WEEKLY CHOLECALCIFEROL 82657679491 No Longer Active Robbie Busby MD Active CYCLOBENZAPRINE HCL 10 MG ORAL TABLET 1 tablet by mouth three times daily as needed for muscle spasm/pain for 10 days CYCLOBENZAPRINE HCL 27566286665 No Longer Active Robbie Busby MD Active PREDNISONE 20 MG ORAL TABLET take 3 tabs daily for 3 days, 2 tabs daily for 3 days, 1 tab daily for 3 days, 1/2 tab daily for 4 days PREDNISONE 92547598573 No Longer Active Erin Mai APRN Active CLONIDINE HCL 0.2 MG ORAL TABLET 1 TAB BY MOUTH EVERY 8 HOURS CLONIDINE HCL 99658037117 No Longer Active Erin Mai APRN Active MECLIZINE HCL 25 MG ORAL TABLET one 4 times a day as needed for dizziness MECLIZINE HCL 53514536977 No Longer Active Erin Mai APRN Active SPIRONOLACTONE 25 MG ORAL TABLET 4 tablets by mouth daily SPIRONOLACTONE 98489499543 No Longer Active Erin Riverall SCALLOP SHUCKER Active LEVAQUIN 500 MG ORAL TABLET 1 tablet by mouth daily for 7 days LEVOFLOXACIN 19010634131 No Longer Active Erin Mai SCALLOP SHUCKER Active BACTRIM DS 800-160 MG ORAL TABLET 1 tab by mouth twice daily 2015 TRIMETHOPRIM-SULFAMETHOXAZOLE 82065748211 No Longer Active Robbie Busby MD Active HYDRALAZINE HCL 50 MG ORAL TABLET TWO BY MOUTH THREE TIMES DAILY HYDRALAZINE HCL 56488393018 No Longer Active Andrellina Frazell SCALLOP SHUCKER Active HYDROCODONE-ACETAMINOPHEN 5-325 MG ORAL TABLET 1 tab by mouth BID prn back pain HYDROCODONE-ACETAMINOPHEN 14925104390 No Longer Active 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 SCALLOP SHUCKER Active HYDROCHLOROTHIAZIDE TABLET Take one by mouth daily HYDROCHLOROTHIAZIDE TABS 23448659963 No Longer Active 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 SCALLOP SHUCKER Active LAMISIL 125 MG ORAL PACKET 1 TAB PO DAILY TERBINAFINE HCL 26190804691 No Longer Active 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 SCALLOP SHUCKER Active TRILEPTAL 150 MG ORAL TABLET 1 TAB PO Q HS OXCARBAZEPINE 16453328445 No Longer Active 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 SCALLOP SHUCKER Active BETADINE 10 % EXTERNAL SOLUTION 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 07/29 POVIDONE-IODINE 49604370712 No Longer Active 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 SCALLOP SHUCKER Active NYSTATIN 423543 UNIT/ML MOUTH/THROAT SUSPENSION 5mL po QID x 10 days NYSTATIN 37052274611 No Longer Active Erin Mai SCALLOP SHUCKER Active PREDNISONE 20 MG ORAL TABLET 1 tablet twice daily for 2 days, then 1 tablet once daily for 2 days PREDNISONE 42330050202 No Longer Active Robbie Busby MD Active CEFDINIR 300 MG ORAL CAPSULE Take 1 cap po bid x 10 days CEFDINIR 69585736769 No Longer Active Robbie Busby MD Active AMLODIPINE BESYLATE 10 MG ORAL TABLET 1 tablet by mouth daily AMLODIPINE BESYLATE 52503722255 Active Robbie Busby MD Active CARVEDILOL 25 MG ORAL TABLET 1 & 1/2 TAB po BID CARVEDILOL 37160127390 Active Robbie Busby MD Active NEXIUM 40 MG ORAL CAPSULE DELAYED RELEASE 1 cap by mouth daily ESOMEPRAZOLE MAGNESIUM 96242219482 Active Robbie Busby MD Active PROTONIX 40 MG INTRAVENOUS SOLUTION RECONSTITUTED 1 po qday for acid reflux PANTOPRAZOLE SODIUM 76262748341 No Longer Active Galileonila Negro Active KEFLEX 500 MG ORAL CAPSULE 1 po TID x 10 days CEPHALEXIN 03135009370 No Longer Active Robbie Busby MD Active ALPRAZOLAM 2 MG ORAL TABLET 1 TAB PO BID ALPRAZOLAM 56785235310 Active Robbie Busby MD Active FENOFIBRATE 145 MG ORAL TABLET Take one by mouth daily FENOFIBRATE 11469536838 No Longer Active Robbie Busby MD Active SPIRONOLACTONE 50 MG ORAL TABLET 1 tablet by mouth twice a day SPIRONOLACTONE 51872846421 No Longer Active Robbie Busby MD Active HYDRALAZINE HCL 25 MG ORAL TABLET 1 tablet by mouth tid for hypertension 2013 HYDRALAZINE HCL 74821868655 No Longer Active Robbie Busby MD Active VIIBRYD 40 MG ORAL TABLET take 1 tab po qday for depression. 2014 VILAZODONE HCL 87738639962 No Longer Active Robbie Busby MD Active TERBINAFINE HCL 250 MG ORAL TABLET 1 tab po qday for foot infection TERBINAFINE HCL 69836658333 No Longer Active Robbie Busby MD Active GABAPENTIN 300 MG ORAL CAPSULE 1 po q hs for nerve pain GABAPENTIN 47241952045 Active Robbie Busby MD Active CHERATUSSIN AC 100-10 MG/5ML ORAL SOLUTION 7.5 mL PO q 4-6 hrs PRN cough 2014 GUAIFENESIN-CODEINE 77550095370 No Longer Active Robbie Busby MD Active AZITHROMYCIN 250 MG ORAL TABLET 2 tablets PO today---then, 1 tablet PO daily x 4 more days (and 1 optional refill) AZITHROMYCIN 11789743266 No Longer Active Robbie Busby MD Active NORVASC 10 MG ORAL TABLET 1 tablet by mouth daily AMLODIPINE BESYLATE 69249197486 No Longer Active Alex ALVAREZ Active ISOSORBIDE DINITRATE 30 MG ORAL TABLET Take one by mouth daily ISOSORBIDE DINITRATE 42712899690 No Longer Active Robbie Busby MD Active VIIBRYD 40 MG ORAL TABLET 1 TA B PO DAILY VILAZODONE HCL 09725640688 Active Robbie Busby MD Active ZITHROMAX 250 MG ORAL TABLET 2 po today, then 1 po q days 2-5 AZITHROMYCIN 50027958951 No Longer Active Robbie Busby MD Active DOXAZOSIN MESYLATE 4 MG ORAL TABLET Take one by mouth daily DOXAZOSIN MESYLATE 66304066861 Active Robbie Busby MD Active VENLAFAXINE HCL ER 150 MG ORAL TABLET EXTENDED RELEASE 24 HOUR Take one by mouth daily VENLAFAXINE HCL 14311289744 Active Robbie Busby MD Active LIPITOR 40 MG ORAL TABLET Take one by mouth daily ATORVASTATIN CALCIUM 64116456922 Active Robbie Busby MD Active ISOSORBIDE DINITRATE 30 MG ORAL TABLET Take one by mouth daily ISOSORBIDE DINITRATE 30 MG ORAL TABLET 186231 ISOSORBIDE DINITRATE Inactive NORVASC 10 MG ORAL TABLET 1 tablet by mouth daily NORVASC 10 MG ORAL TABLET 419445 AMLODIPINE BESYLATE Inactive AZITHROMYCIN 250 MG ORAL TABLET 2 tablets PO today---then, 1 tablet PO daily x 4 more days (and 1 optional refill) AZITHROMYCIN 250 MG ORAL TABLET 549541 AZITHROMYCIN Inactive CHERATUSSIN AC 100-10 MG/5ML ORAL SOLUTION 7.5 mL PO q 4-6 hrs PRN cough 2014 CHERATUSSIN AC 100-10 MG/5ML ORAL SOLUTION 344031 GUAIFENESIN-CODEINE Inactive VIIBRYD 40 MG ORAL TABLET take 1 tab po qday for depression. 2014 VIIBRYD 40 MG ORAL TABLET VILAZODONE HCL Inactive HYDRALAZINE HCL 25 MG ORAL TABLET 1 tablet by mouth tid for hypertension 2013 HYDRALAZINE HCL 25 MG ORAL TABLET 591999 HYDRALAZINE HCL Inactive SPIRONOLACTONE 50 MG ORAL TABLET 1 tablet by mouth twice a day SPIRONOLACTONE 50 MG ORAL TABLET 523273 SPIRONOLACTONE Inactive FENOFIBRATE 145 MG ORAL TABLET Take one by mouth daily FENOFIBRATE 145 MG ORAL TABLET 702035 FENOFIBRATE Inactive PROTONIX 40 MG INTRAVENOUS SOLUTION RECONSTITUTED 1 po qday for acid reflux PROTONIX 40 MG INTRAVENOUS SOLUTION RECONSTITUTED 035493 PANTOPRAZOLE SODIUM Inactive CEFDINIR 300 MG ORAL CAPSULE Take 1 cap po bid x 10 days CEFDINIR 300 MG ORAL CAPSULE 925213 CEFDINIR Inactive PREDNISONE 20 MG ORAL TABLET 1 tablet twice daily for 2 days, then 1 tablet once daily for 2 days PREDNISONE 20 MG ORAL TABLET 719251 PREDNISONE Inactive NYSTATIN 394341 UNIT/ML MOUTH/THROAT SUSPENSION 5mL po QID x 10 days NYSTATIN 798942 UNIT/ML MOUTH/THROAT SUSPENSION 489982 NYSTATIN Inactive BETADINE 10 % EXTERNAL SOLUTION 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 07/29 BETADINE 10 % EXTERNAL SOLUTION 5991951 POVIDONE-IODINE Inactive TRILEPTAL 150 MG ORAL TABLET 1 TAB PO Q HS TRILEPTAL 150 MG ORAL TABLET 350316 OXCARBAZEPINE Inactive LAMISIL 125 MG ORAL PACKET 1 TAB PO DAILY LAMISIL 125 MG ORAL PACKET TERBINAFINE HCL Inactive HYDROCHLOROTHIAZIDE TABLET Take one by mouth daily HYDROCHLOROTHIAZIDE TABLET HYDROCHLOROTHIAZIDE TABS Inactive HYDROCODONE-ACETAMINOPHEN 5-325 MG ORAL TABLET 1 tab by mouth BID prn back pain HYDROCODONE-ACETAMINOPHEN 5-325 MG ORAL TABLET 916659 HYDROCODONE-ACETAMINOPHEN Inactive HYDRALAZINE HCL 50 MG ORAL TABLET TWO BY MOUTH THREE TIMES DAILY HYDRALAZINE HCL 50 MG ORAL TABLET 764964 HYDRALAZINE HCL Inactive LEVAQUIN 500 MG ORAL TABLET 1 tablet by mouth daily for 7 days LEVAQUIN 500 MG ORAL TABLET 267566 LEVOFLOXACIN Inactive SPIRONOLACTONE 25 MG ORAL TABLET 4 tablets by mouth daily SPIRONOLACTONE 25 MG ORAL TABLET 360533 SPIRONOLACTONE Inactive MECLIZINE HCL 25 MG ORAL TABLET one 4 times a day as needed for dizziness MECLIZINE HCL 25 MG ORAL TABLET 763740 MECLIZINE HCL Inactive CLONIDINE HCL 0.2 MG ORAL TABLET 1 TAB BY MOUTH EVERY 8 HOURS CLONIDINE HCL 0.2 MG ORAL TABLET 958367 CLONIDINE HCL Inactive CYCLOBENZAPRINE HCL 10 MG ORAL TABLET 1 tablet by mouth three times daily as needed for muscle spasm/pain for 10 days CYCLOBENZAPRINE HCL 10 MG ORAL TABLET 592205 CYCLOBENZAPRINE HCL Inactive VITAMIN D3 31665 UNIT ORAL CAPSULE 2 CAPS PO WEEKLY VITAMIN D3 76617 UNIT ORAL CAPSULE CHOLECALCIFEROL Inactive FIORICET 50-300-40 MG ORAL CAPSULE take 1 tab po qday prn migraines. FIORICET 50-300-40 MG ORAL CAPSULE 924004 BUTALBITAL-APAP- CAFFEINE Inactive FLONASE 50 MCG/ACT NASAL SUSPENSION 1 spray each nostril twice daily for allergies and runny nose FLONASE 50 MCG/ACT NASAL SUSPENSION 3371726 FLUTICASONE PROPIONATE Inactive LORATADINE 10 MG ORAL TABLET 1 tablet by mouth daily for congestion and allergies. LORATADINE 10 MG ORAL TABLET 595931 LORATADINE Inactive NITROSTAT 0.4 MG SUBLINGUAL TABLET SUBLINGUAL PRN NITROSTAT 0.4 MG SUBLINGUAL TABLET SUBLINGUAL 266895 NITROGLYCERIN Inactive GUAIFENESIN ER 600 MG ORAL TABLET EXTENDED RELEASE 12 HOUR 1 tab po q am 2016 GUAIFENESIN ER 600 MG ORAL TABLET EXTENDED RELEASE 12 HOUR GUAIFENESIN Inactive CYCLOBENZAPRINE HCL 10 MG ORAL TABLET 1 po TID PRN muscle spasm/pain for 10 days CYCLOBENZAPRINE HCL 10 MG ORAL TABLET 573042 CYCLOBENZAPRINE HCL Inactive TOPIRAMATE 50 MG ORAL TABLET take 1 tab po BID for migraines. TOPIRAMATE 50 MG ORAL TABLET 524148 TOPIRAMATE Inactive PREDNISONE 20 MG ORAL TABLET two tabs by mouth today, then one tab by mouth days two and three PREDNISONE 20 MG ORAL TABLET 501338 PREDNISONE Inactive TOPROL XL 200 MG ORAL TABLET EXTENDED RELEASE 24 HOUR Take one by mouth daily TOPROL XL 200 MG ORAL TABLET EXTENDED RELEASE 24 HOUR METOPROLOL SUCCINATE Inactive CYCLOBENZAPRINE HCL 10 MG ORAL TABLET 1 tablet by mouth three times daily as needed for muscle spasm/pain CYCLOBENZAPRINE HCL 10 MG ORAL TABLET 013065 CYCLOBENZAPRINE HCL Inactive TOPIRAMATE 50 MG ORAL TABLET 1 po BID for migraines TOPIRAMATE 50 MG ORAL TABLET 772516 TOPIRAMATE Inactive TEMAZEPAM 15 MG ORAL CAPSULE 1 TAB PO Q HS TEMAZEPAM 15 MG ORAL CAPSULE 567076 TEMAZEPAM Inactive IMDUR 60 MG ORAL TABLET EXTENDED RELEASE 24 HOUR take 1 tab po qday for blood pressure IMDUR 60 MG ORAL TABLET EXTENDED RELEASE 24 HOUR ISOSORBIDE MONONITRATE Inactive [id number] 0.3 MG/24HR TRANSDERMAL PATCH WEEKLY apply 2 patches q week for HTN [id number] 0.3 MG/24HR TRANSDERMAL PATCH WEEKLY 994081 CLONIDINE HCL Inactive ZITHROMAX 250 MG ORAL TABLET 2 po today, then 1 po q days 2-5 ZITHROMAX 250 MG ORAL TABLET 734507 AZITHROMYCIN Inactive TERBINAFINE HCL 250 MG ORAL TABLET 1 tab po qday for foot infection TERBINAFINE HCL 250 MG ORAL TABLET 499193 TERBINAFINE HCL Inactive KEFLEX 500 MG ORAL CAPSULE 1 po TID x 10 days KEFLEX 500 MG ORAL CAPSULE 874685 CEPHALEXIN Inactive BACTRIM DS 800-160 MG ORAL TABLET 1 tab by mouth twice daily 2015 BACTRIM DS 800-160 MG ORAL TABLET 704434 TRIMETHOPRIM- SULFAMETHOXAZOLE Inactive PREDNISONE 20 MG ORAL TABLET take 3 tabs daily for 3 days, 2 tabs daily for 3 days, 1 tab daily for 3 days, 1/2 tab daily for 4 days PREDNISONE 20 MG ORAL TABLET 619168 PREDNISONE Inactive AZITHROMYCIN 250 MG ORAL TABLET 2 po qd x 1 day, then 1 po qd x 4 days 09/20 AZITHROMYCIN 250 MG ORAL TABLET 084329 AZITHROMYCIN Inactive SINGULAIR 10 MG ORAL TABLET 1 po qday for allergies. SINGULAIR 10 MG ORAL TABLET 209020 MONTELUKAST SODIUM Inactive Advance Directives Directive Description Start Date DISCUSSED WITH PATIENT -- NO DECISION MADE Vital Signs Date Name Value Unit Range Description blood pressure, diastolic 101 mm[Hg] BP [place] blood pressure, systolic 163 mm[Hg] BP sys pulse rate E&M 123 /min Heart rate temperature E&M 97.7 [degF] Body temperature weight E&M 216 [lb_av] Weight Measured blood pressure, diastolic 95 mm[Hg] BP [place] blood pressure, systolic 164 mm[Hg] BP sys height E&M 64 [in_us] Bdy height pulse rate E&M 90 /min Heart rate temperature E&M 98.2 [degF] Body temperature weight E&M 226.5 [lb_av] Weight Measured blood pressure, diastolic 110 mm[Hg] BP [place] blood pressure, systolic 187 mm[Hg] BP sys height E&M 64 [in_us] Bdy height pulse rate E&M 69 /min Heart rate temperature E&M 97.8 [degF] Body temperature weight E&M 225 [lb_av] Weight Measured blood pressure, diastolic 85 mm[Hg] BP [place] blood pressure, systolic 150 mm[Hg] BP sys height E&M 64 [in_us] Bdy height pulse rate E&M 83 /min Heart rate temperature E&M 98.3 [degF] Body temperature weight E&M 226 [lb_av] Weight Measured blood pressure, diastolic 108 mm[Hg] BP [place] blood pressure, systolic 194 mm[Hg] BP sys height E&M 64 [in_us] Bdy height pulse rate E&M 89 /min Heart rate temperature E&M 98.6 [degF] Body temperature weight E&M 226.31 [lb_av] Weight Measured blood pressure, diastolic 92 mm[Hg] BP [place] blood pressure, systolic 149 mm[Hg] BP sys pulse rate E&M 56 /min Heart rate temperature E&M 97.5 [degF] Body temperature weight E&M 221 [lb_av] Weight Measured blood pressure, diastolic 99 mm[Hg] BP [place] blood pressure, systolic 140 mm[Hg] BP sys height E&M 64 [in_us] Bdy height pulse rate E&M 66 /min Heart rate temperature E&M 97.7 [degF] Body temperature weight E&M 220.5 [lb_av] Weight Measured blood pressure, diastolic 99 mm[Hg] BP [place] blood pressure, systolic 173 mm[Hg] BP sys height E&M 64 [in_us] Bdy height pulse rate E&M 90 /min Heart rate temperature E&M 97.5 [degF] Body temperature weight E&M 218 [lb_av] Weight Measured blood pressure, diastolic 112 mm[Hg] BP [place] blood pressure, systolic 184 mm[Hg] BP sys height E&M 64 [in_us] Bdy height pulse rate E&M 75 /min Heart rate temperature E&M 96.9 [degF] Body temperature weight E&M 219 [lb_av] Weight Measured blood pressure, diastolic 92 mm[Hg] BP [place] blood pressure, systolic 151 mm[Hg] BP sys height E&M 64 [in_us] Bdy height pulse rate E&M 74 /min Heart rate temperature E&M 96.5 [degF] Body temperature weight E&M 217 [lb_av] Weight Measured Diagnostic Results Date Name Value Unit Range Description Lab Report: CBC W/DIFF, Comp. Metabolic Panel, CKI, UADIP W/MICRO, AUTO - Chemistry sodium, serum 142 mmol/L [phone]/07/17 carbon dioxide, venous blood 28.2 mmol/L 21.0-32.0 potassium, serum 4.9 mmol/L 3.5-5.2 chloride, serum 106 mmol/L 98-107 blood glucose 130 mg/dL 65-110 urea nitrogen, blood 18 mg/dL 7-18 creatinine, serum 1.45 mg/dL 0.60-1.30 alanine aminotransferase (SGPT), serum 44 U/L 12-78 aspartate aminotransferase (SGOT), serum 25 U/L 15-37 calcium, serum 9.4 mg/dL 8.5-10.1 bilirubin, serum, total 0.70 mg/dL 0.00-1.00 creatine kinase, serum 275 U/L 26-192 protein, total urine random 1+ mg/dL Negative RBC, urine, dipstick 2+ Negative Lab Report: CBC W/DIFF, Comp. Metabolic Panel, CKI, UADIP W/MICRO, AUTO - Hematology leukocyte count, blood 10.9 10^3/MM^3 10*3/mm3 4.6-10.2 neutrophils as percent of blood leukocytes 55.7 % 40.0-80.0 monocytes as percent of blood leukocytes 6.8 % 2.0-10.0 lymphocytes as percent of blood leukocytes 35.6 % 20.0-40.0 erythrocyte (RBC) count 4.83 10^6/MM^3 10*6/mm3 4.50-6.50 hemoglobin, blood 14.7 g/dL 14.0-18.0 hematocrit, blood 43.8 % 40.0-54.0 mean corpuscular volume, RBC 91 fL 80-97 mean corpuscular hemoglobin, RBC 30.4 pg 27.0-31.2 mean corpuscular hemoglobin concentration, RBC 33.6 G/DL % 31.8- 35.4 red blood cell distribution width 13.6 % 11.6-14.8 platelet count 239 10^3/MM^3 10*3/mm3 142-424 Lab Report: CBC W/DIFF, Comp. Metabolic Panel, CKI, UADIP W/MICRO, AUTO - Urinalysis urobilinogen, urine, semiquantitative (dipstick) 0.2 E.U./dL Normal leukocyte esterase, urine, by dipstick Negative Negative nitrite, urine, semiquantitative Negative Negative glucose, urine, semiquantitative Negative Negative ketones, urine, by test strip Negative Negative bilirubin, urine Negative Negative urine color Yellow Colorless;Lightyellow;Straw;Yellow appearance, urine Clear Clear specific gravity, urine 1.020 1.000-1.030 pH, urine, semiquantitative 5.0 5.0-8.5 Lab Report: CBC-QUEST, COMPREHENSIVE METABOLIC PANEL - Hematology leukocyte count, blood 10.1 THOUSAND/UL 10*3/mm3 3.8-10.8 erythrocyte (RBC) count 4.64 MILLION/UL 10*6/mm3 4.20-5.80 hemoglobin, blood 13.9 g/dL 13.2-17.1 hematocrit, blood 42.0 % 38.5-50.0 mean corpuscular volume, RBC 90.5 fL 80.0-100.0 mean corpuscular hemoglobin, RBC 29.9 pg 27.0-33.0 mean corpuscular hemoglobin concentration, RBC 33.1 G/DL % 32.0- 36.0 red blood cell distribution width 15.8 % 11.0-15.0 platelet count 185 THOUSAND/UL 10*3/mm3 354-730 7374/04/14 mean platelet volume 10.9 fL 7.5-12.5 Lab Report: Comp. Metabolic Panel - Chemistry sodium, serum 141 mmol/L 556-177 7565/02/13 carbon dioxide, venous blood 23.9 mmol/L 21.0-32.0 potassium, serum 4.5 mmol/L 3.5-5.2 chloride, serum 104 mmol/L 98-107 blood glucose 119 mg/dL 65-110 urea nitrogen, blood 25 mg/dL 7-18 creatinine, serum 1.48 mg/dL 0.60-1.30 alanine aminotransferase (SGPT), serum 40 U/L 12-78 aspartate aminotransferase (SGOT), serum 22 U/L 15-37 calcium, serum 9.7 mg/dL 8.5-10.1 bilirubin, serum, total 0.60 mg/dL 0.00-1.00 Lab Report: HGBA1C, Basic Metabolic Panel - Chemistry hemoglobin A1C, blood, as % of total hemoglobin 6.9 % 4.3-6.0 sodium, serum 139 mmol/L 235-701 6809/01/04 potassium, serum 3.9 mmol/L 3.5-5.2 chloride, serum 103 mmol/L 98-107 carbon dioxide, venous blood 26.9 mmol/L 21.0-32.0 blood glucose 106 mg/dL 65-110 calcium, serum 9.0 mg/dL 8.5-10.1 urea nitrogen, blood 20 mg/dL 7-18 creatinine, serum 1.46 mg/dL 0.60-1.30 Lab Report: LIPID PANEL, TSH/899, T4, FREE/866 - Chemistry cholesterol, serum 220 mg/dL 418-128 8591/04/14 HDL cholesterol, serum 30 mg/dL > OR=40 triglyceride, serum, fasting 466 mg/dL <150 LDL cholesterol, serum SEE NOTE mg/dL (calc) mg/dL <130 cholesterol/HDL ratio, serum 7.3 (calc) < OR=5.0 Lab Report: MICROALB/CREAT W/RATIO - Chemistry albumin/creatinine ratio, urine <30 mg/g Normal mg/g mg/g{creat} 0-29 Lab Report: MICROALB/CREAT W/RATIO - Lab microalbumin, urine 30 mg/L 0-19 Lab Report: Prostatic Specific Ag - Chemistry prostate specific antigen 1.80 ng/mL 0.00-4.00 Lab Report: VITAMIN D, 25-HYDROXY/73864 - Chemistry vitamin D 25-hydroxy, serum 25 ng/mL 30-100 Office Visit: Confusion, dizziness after fall - Basic LDL target level 130 mg/dL Office Visit: Confusion, dizziness after fall - Chemistry HDL cholesterol, serum, target level 40 mg/dL triglyceride, target level 150 mg/dL cholesterol, target level 200 mg/dL Encounters Code Encounter Date Provider Facility CPT-70946 Level 4 Est. Patient 09:50:01 AIRCRAFT CLEANING SUPERVISOR Robbie Busby MD [facility] CPT-90548 Level 4 Est. Patient 09:42:08 AIRCRAFT CLEANING SUPERVISOR Robbie Busby MD [facility] CPT-52068 Level 4 Est. Patient 13:07:39 AIRCRAFT CLEANING SUPERVISOR Robbie Busby MD [facility] CPT-27903 Level 4 Est. Patient 15:23:44 AIRCRAFT CLEANING SUPERVISOR Desmond Diaz DO [facility] CPT-96698 Level 3 Est. Patient 15:40:49 CDT Robbie Busby MD [facility] CPT-53155 Level 4 Est. Patient 15:18:19 CDT Robbie Busby MD [facility] CPT-50464 Level 3 Est. Patient 09:00:37 CDT Rober Rodríguez [facility] CPT-38018 Level 3 Est. Patient 16:07:10 CDT Robbie Busby MD [facility] CPT-47483 Level 4 Est. Patient 11:56:16 CDT Erin Mai [facility] CPT-58692 Level 3 Est. Patient 17:48:02 CDT Robbie Busby MD [facility] CPT-02301 Level 4 Est. Patient 12:00:49 AIRCRAFT CLEANING SUPERVISOR Rober Rodríguez [facility] CPT-50560 Level 3 Est. Patient 09:16:37 CDT Robbie Busby MD [facility]-89716 Level 3 Est. Patient 19:38:43 CDT Robbie Busby MD [facility] CPT-89271 Level 3 Est. Patient 11:53:38 CDT Robbie Busby MD [facility] CPT-93996 Level 4 Est. Patient 12:52:22 CDT Rober Rodríguez [facility] CPT-82008 Level 4 Est. Patient 22:55:17 CDT Robbie Busby MD [facility]-75201 Level 3 Est. Patient 12:38:24 CDT Desmond Diaz DO [facility] CPT-00529 Level 4 Est. Patient 11:25:03 AIRCRAFT CLEANING SUPERVISOR Robbie Busby MD [facility] CPT-71944 Level 4 Est. Patient 14:50:10 CDT Robbie Busby MD [facility] CPT-10496 Level 4 Est. Patient 23:30:43 CDT Robbie Busby MD [facility] CPT-96714 Level 4 Est. Patient 10:30:43 CDT Robbie Busby MD [facility] CPT-11664 Level 3 Est. Patient 17:08:12 CDT Alex ALVAREZ [facility] CPT-51314 Level 4 Est. Patient 17:51:38 CDT Robbie Busby MD [facility] CPT-61433 Level 4 Est. Patient 14:00:21 CDT Robbie Busby MD [facility] CPT-73503 Level 4 Est. Patient 12:46:48 CDT Robbie Busby MD [facility] CPT-38178 Level 4 Est. Patient 13:34:33 CDT Robbie Busby MD [facility] CPT-97073 Level 4 Est. Patient 16:58:28 CDT Robbie Busby MD [facility] CPT-17032 Level 3 Est. Patient 19:36:53 CDT Alex ALVAREZ [facility] CPT-21605 Level 3 Est. Patient 12:58:15 CDT Robbie Busby MD [facility] Procedures Code Procedure Name Date Entry Date Standard Description CPT-J1071 Depo Testosterone 200mg 10:27:10 CDT CPT-35032 Abx/Therapy Injection 10:27:10 CDT CPT-J1071 Depo Testosterone 200mg 16:10:29 [facility] CPT-87017 Abx/Therapy Injection 16:10:29 [facility] CPT-J1071 Depo Testosterone 200mg 16:13:47 [facility] CPT-54553 Abx/Therapy Injection 16:13:46 [facility] CPT-J1071 Depo Testosterone 200mg 15:33:58 [facility] CPT-45979 Abx/Therapy Injection 15:33:58 [facility] CPT-J1071 Depo Testosterone 200mg 09:38:36 AIRCRAFT CLEANING SUPERVISOR CPT-95360 Abx/Therapy Injection 09:38:36 [employer]CRAFT CLEANING SUPERVISOR CPT-J1071 Depo Testosterone 200mg 10:22:56 [employer]CRAFT CLEANING SUPERVISOR CPT-47978 Abx/Therapy Injection 10:22:56 AIRCRAFT CLEANING SUPERVISOR CPT-J1071 Depo Testosterone 200mg 15:40:23 CDT CPT-28090 Abx/Therapy Injection 15:40:23 CDT CPT-J1071 Depo Testosterone 200mg 14:20:43 CDT CPT-65727 Abx/Therapy Injection 14:20:43 CDT CPT-J1071 Depo Testosterone 200mg 14:17:22 CDT CPT-63386 Abx/Therapy Injection 14:17:22 CDT CPT-J1071 Depo Testosterone 200mg 09:03:53 CDT CPT-39661 Abx/Therapy Injection 09:03:53 CDT CPT-G0439 [facility] Annual Wellness Exam 16:47:44 CDT CPT-J1071 Depo Testosterone 200mg 09:06:28 CDT CPT-19407 Abx/Therapy Injection 09:06:28 CDT CPT-J1071 Depo Testosterone 200mg 08:30:01 CDT CPT-31581 Abx/Therapy Injection 08:30:01 CDT CPT-J1071 Depo Testosterone 200mg 08:24:00 CDT CPT-92462 Abx/Therapy Injection 08:24:00 CDT CPT-63273 Venipuncture Draw Fee 14:39:06 CDT CPT-26210 Ribs unilateral 2V - XRAY USE ONLY 12:10:11 CDT CPT-27619 First Vx - Ix admin for Medicare patients 16:32:53 CDT CPT-21039 Boostrix Intramuscular Suspension 5-2.5-18.5 16:32:53 CDT CPT-05832 TB Skin Test 11:42:28 CDT CPT-04510 Tdap 7yrs or > 11:42:28 CDT CPT-J0696 Rocephin 1000 mg (Ceftriaxone) 17:43:43 [employer]CRAFT CLEANING SUPERVISOR CPT-J1040 Depo Medrol 80 mg (Methyl Prednisolone Acetate) 17:43: 43 [employer]CRAFT CLEANING SUPERVISOR CPT-J1100 Decadron 8mg (Dexamethasone) 17:43:42 AIRCRAFT CLEANING SUPERVISOR CPT-63562 Abx/Therapy Injection 17:43:42 AIRCRAFT CLEANING SUPERVISOR CPT-21997 Abx/Therapy Injection 17:43:42 AIRCRAFT CLEANING SUPERVISOR CPT-J1040 Depo Medrol 80 mg (Methyl Prednisolone Acetate) 09:43: 34 AIRCRAFT CLEANING SUPERVISOR CPT-J1100 Decadron 8mg (Dexamethasone) 09:43:34 AIRCRAFT CLEANING SUPERVISOR CPT-J0696 Rocephin 1gm Inj Solr 09:43:34 AIRCRAFT CLEANING SUPERVISOR CPT-99507 Wound Culture - LAB USE ONLY 14:00:21 CDT CPT-I/D I/D Abscess 09:16:37 CDT CPT-26915 Venipuncture Draw Fee 15:20:23 CDT CPT-19660 Microalbumin - LAB USE ONLY 16:02:19 CDT CPT-03250 CBC - LAB USE ONLY 16:02:19 CDT CPT-25383 Venipuncture Draw Fee 16:02:19 CDT CPT-G0438 Initial Annual Wellness Exam 08:10:28 CDT CPT-07561 Venipuncture Draw Fee 13:07:17 CDT CPT-G0008 Administration of Influenza Virus Vaccine 16:09:59 CDT CPT-96425 Fluzone Quadrivalent Intramuscular Suspension 0.5 ML 16: 09:59 CDT CPT-04944 Spec Collection and Handling Fee 15:05:50 CDT
--- OUTSIDE RECORDS SUMMARY | 2018-04-18 10:14 | XMS REPORT | Clinical Summary ---
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 Conditions or Problems Problem Name Problem Code [...] Robbie Busby MD Dysthymic disorder Sinusitis 461.9 Active Robbie Busby MD Acute sinusitis, unspecified Low back pain, acute 724.2 Active Robbie Busby MD Lumbago Low back pain, chronic 724.2 Active Robbie Busby MD Lumbago Degenerative arthritis 715.90 Active Robbie Busby MD Osteoarthrosis, unspecified whether generalized or localized, involving unspecified site GERD 530.81 Active Robbie Busby MD Esophageal reflux Bronchitis, acute 466.0 Active Alex ALVAREZ Acute bronchitis Seasonal allergies 477.9 Active Robbie Busby MD Allergic rhinitis, cause unspecified Onychomycosis, toenails 110.1 Active Robbie Busby MD Dermatophytosis of nail Dizziness 780.4 Active Robbie Busby MD Dizziness and giddiness Folliculitis 704.8 Active Robbie Busby MD Other specified diseases of hair and hair follicles Migraine 346.90 Active Robbie Busby MD Migraine, unspecified, without mention of intractable migraine, without mention of status migrainosus BPH 600.00 Active Robbie Busby MD Hypertrophy (benign) of prostate without urinary obstruction and other lower urinary tract (LUTS) Pharyngitis-Acute 462 Active Desmond Diaz DO Acute pharyngitis Kidney disease, chronic, stage III 585.3 Active Ca CASTILLO Chronic kidney disease, Stage III (moderate) C V A / Stroke Active Robbie Busby MD Myocardial Infarction: Active Robbie Busby MD Acute myocardial infarction, unspecified site, initial episode of care ( History of) Sleep apnea, chronic 780.57 Active Erin Garsia APRN Unspecified sleep apnea Continuous positive airway pressure rx V46.2 Active Erin Garsia APRN Other dependence on machines, 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 Medication List Medication Instructions Start Date Stop Date Generic Name ND Status Provider Patient Instruction NYSTATIN 171614 UNIT/ML M/T SUSP 5mL po QID x 10 days NYSTATIN 94417613041 No Longer Active Erin Garsia APRN Active PREDNISONE 20 MG TAB 1 tablet twice daily for 2 days, then 1 tablet once daily for 2 days PREDNISONE 32982672835 No Longer Active Robbie Busby MD Active CEFDINIR 300 MG ORAL CAPS Take 1 cap po bid x 10 days CEFDINIR 16479394421 No Longer Active Robbie Busby MD Active AMLODIPINE BESYLATE 10 MG TABS 1 tablet by mouth daily AMLODIPINE BESYLATE 87380308004 Active Robbie Busby MD Active CARVEDILOL 25 MG TABS 1 & 1/2 TAB po BID CARVEDILOL 57506202094 Active Robbie Busby MD Active VITAMIN D3 15930 UNIT CAPS 2 CAPS PO WEEKLY CHOLECALCIFEROL 38623759547 Active Erin Garsia POULTRY FARMER EGG Active NEXIUM 40 MG CPDR 1 cap by mouth daily ESOMEPRAZOLE MAGNESIUM 64663413448 Active Galileonila Negro Active PROTONIX 40 MG SOLR 1 po qday for acid reflux PANTOPRAZOLE SODIUM 82320592160 No Longer Active Gali Raida Active BETADINE 10 % EXT SOLN 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 POVIDONE-IODINE 15880783235 Active Robbie Busby MD Active KEFLEX 500 MG CAP 1 po TID x 10 days CEPHALEXIN 17424377862 No Longer Active Robbie Busby MD Active FIORICET 50-300-40 MG ORAL CAPS take 1 tab po qday prn migraines. [id number] 09123532907 Active Robbie Busby MD Active TOPIRAMATE 50 MG ORAL TABS take 1 tab po BID for migraines. TOPIRAMATE 70574280679 Active Robbie Busby MD Active HYDRALAZINE HCL 50 MG ORAL TABS TWO BY MOUTH THREE TIMES DAILY HYDRALAZINE HCL 55401211210 Active Robbie Busby MD Active MECLIZINE HCL 25 MG TAB one 4 times a day as needed for dizziness MECLIZINE HCL 08141153062 Active Robbie Busby MD Active TRILEPTAL 150 MG ORAL TABS 1 TAB PO Q HS OXCARBAZEPINE 77198232352 Active Robbie Busby MD Active TEMAZEPAM 15 MG ORAL CAPS 1 TAB PO Q HS TEMAZEPAM 50227110452 Active Robbie Busby MD Active ALPRAZOLAM 2 MG ORAL TABS 1 TAB PO BID ALPRAZOLAM 25769666522 Active Robbie Busby MD Active FENOFIBRATE 145 MG TABS Take one by mouth daily FENOFIBRATE 88264618377 No Longer Active Robbie Busby MD Active LAMISIL 125 MG ORAL PACK 1 TAB PO DAILY TERBINAFINE HCL 59357874290 Active Robbie Busby MD Active SPIRONOLACTONE 50 MG TABS 1 tablet by mouth twice a day SPIRONOLACTONE 69230992593 No Longer Active Robbie Busby MD Active HYDRALAZINE HCL 25 MG TABS 1 tablet by mouth tid for hypertension HYDRALAZINE HCL 86915490692 No Longer Active Robbie Busby MD Active VIIBRYD 40 MG TABS take 1 tab po qday for depression. VILAZODONE HCL 22103171490 No Longer Active Robbie Busby MD Active TERBINAFINE HCL 250 MG TABS 1 tab po qday for foot infection 2014 TERBINAFINE HCL 93071630795 No Longer Active Robbie Busby MD Active GABAPENTIN 300 MG CAPS 1 po q hs for nerve pain GABAPENTIN 62782622802 Active Robbie Busby MD Active FLONASE 50 MCG/ACT SUSP 1 spray each nostril twice daily for allergies and runny nose FLUTICASONE PROPIONATE 21868264596 Active Robbie Busby MD Active CHERATUSSIN AC 100-10 MG/5ML ORAL SOLN 7.5 mL PO q 4-6 hrs PRN cough GUAIFENESIN-CODEINE 72100883655 No Longer Active Robbie Busby MD Active AZITHROMYCIN 250 MG ORAL TABS 2 tablets PO today---then, 1 tablet PO daily x 4 more days (and 1 optional refill) AZITHROMYCIN 24214545113 No Longer Active Robbie Busyb MD Active CLONIDINE HCL 0.2 MG ORAL TABS 1 TAB BY MOUTH EVERY 8 HOURS CLONIDINE HCL 98383589158 Active Robbie Busby MD Active HYDROCHLOROTHIAZIDE TABS Take one by mouth daily HYDROCHLOROTHIAZIDE TABS 28713221073 Active Alex ALVAREZ Active NORVASC 10 MG TAB 1 tablet by mouth daily AMLODIPINE BESYLATE 48579670725 No Longer Active Alex ALVAREZ Active IMDUR 60 MG TAB CR take 1 tab po qday for blood pressure ISOSORBIDE MONONITRATE Active Robbie Busby MD Active ISOSORBIDE DINITRATE 30 MG TABS Take one by mouth daily ISOSORBIDE DINITRATE 52810461019 No Longer Active Robbie Busby MD Active VIIBRYD 40 MG TABS 1 TA B PO DAILY VILAZODONE HCL 87487275827 Active Erin Garsia APRN Active LORATADINE 10 MG TABS 1 tablet by mouth daily for congestion and allergies. LORATADINE 27165113906 Active Robbie Busby MD Active ZITHROMAX 250 MG TAB 2 po today, then 1 po q days 2-5 AZITHROMYCIN 67791405666 No Longer Active Robbie Busby MD Active HYDROCODONE-ACETAMINOPHEN 5-325 MG TABS 1 tab by mouth BID prn back pain 2013 HYDROCODONE-ACETAMINOPHEN 11941875749 Active Robbie Busby MD Active [id number] 0.3 MG/24HR PTWK apply 2 patches q week for HTN CLONIDINE HCL 15392921395 Active Robbie Busby MD Active NITROSTAT 0.4 MG SUBL PRN NITROGLYCERIN 78161491005 Active Robbie Busby MD Active DOXAZOSIN MESYLATE 4 MG TABS Take one by mouth daily DOXAZOSIN MESYLATE 15495803274 Active Robbie Busby MD Active TOPROL XL 200 MG [id number] Take one by mouth daily METOPROLOL SUCCINATE 31492358282 Active Robbie Busby MD Active VENLAFAXINE HCL ER 150 MG [id number] Take one by mouth daily VENLAFAXINE HCL 31706562156 Active Robbie Busby MD Active LIPITOR 40 MG TABS Take one by mouth daily ATORVASTATIN CALCIUM 07900105065 Active Robbie Busby MD Active ISOSORBIDE DINITRATE 30 MG TABS Take one by mouth daily ISOSORBIDE DINITRATE 30 MG TABS 072628 ISOSORBIDE DINITRATE Inactive NORVASC 10 MG TAB 1 tablet by mouth daily NORVASC 10 MG TAB 284762 AMLODIPINE BESYLATE Inactive AZITHROMYCIN 250 MG ORAL TABS 2 tablets PO today---then, 1 tablet PO daily x 4 more days (and 1 optional refill) AZITHROMYCIN 250 MG ORAL TABS 6726786 AZITHROMYCIN Inactive CHERATUSSIN AC 100-10 MG/5ML ORAL SOLN 7.5 mL PO q 4-6 hrs PRN cough CHERATUSSIN AC 100-10 MG/5ML ORAL SOLN 364156 GUAIFENESIN- CODEINE Inactive VIIBRYD 40 MG TABS take 1 tab po qday for depression. VIIBRYD 40 MG TABS VILAZODONE HCL Inactive HYDRALAZINE HCL 25 MG TABS 1 tablet by mouth tid for hypertension HYDRALAZINE HCL 25 MG TABS 004503 HYDRALAZINE HCL Inactive SPIRONOLACTONE 50 MG TABS 1 tablet by mouth twice a day SPIRONOLACTONE 50 MG TABS 978279 SPIRONOLACTONE Inactive FENOFIBRATE 145 MG TABS Take one by mouth daily FENOFIBRATE 145 MG TABS 304062 FENOFIBRATE Inactive PROTONIX 40 MG SOLR 1 po qday for acid reflux PROTONIX 40 MG SOLR 012302 PANTOPRAZOLE SODIUM Inactive CEFDINIR 300 MG ORAL CAPS Take 1 cap po bid x 10 days CEFDINIR 300 MG ORAL CAPS 421085 CEFDINIR Inactive PREDNISONE 20 MG TAB 1 tablet twice daily for 2 days, then 1 tablet once daily for 2 days PREDNISONE 20 MG TAB 947747 PREDNISONE Inactive NYSTATIN 638899 UNIT/ML M/T SUSP 5mL po QID x 10 days NYSTATIN 278485 UNIT/ML M/T SUSP 290221 NYSTATIN Inactive ZITHROMAX 250 MG TAB 2 po today, then 1 po q days 2-5 ZITHROMAX 250 MG TAB 9337807 AZITHROMYCIN Inactive TERBINAFINE HCL 250 MG TABS 1 tab po qday for foot infection 2014 TERBINAFINE HCL 250 MG TABS 142124 TERBINAFINE HCL Inactive KEFLEX 500 MG CAP 1 po TID x 10 days KEFLEX 500 MG CAP 117405 CEPHALEXIN Inactive Advance Directives Directive Description Start Date DISCUSSED WITH PATIENT -- NO DECISION MADE Vital Signs Date Name Value Unit Range Description blood pressure, diastolic - 8462-4 96 mm[Hg] BP [place] blood pressure, systolic - 8480-6 162 mm[Hg] BP sys height E&M - 8302-2 64 [in_us] Bdy height pulse rate E&M - 8867-4 70 /min Heart rate temperature E&M 98.5 [degF] Body temperature weight E&M - 3141-9 211.5 [lb_av] Weight Measured blood pressure, diastolic - 8462-4 90 mm[Hg] BP [place] blood pressure, systolic - 8480-6 145 mm[Hg] BP sys pulse rate E&M - 8867-4 63 /min Heart rate temperature E&M 96.5 [degF] Body temperature weight E&M - 3141-9 213 [lb_av] Weight Measured blood pressure, diastolic - 8462-4 108 mm[Hg] BP [place] blood pressure, systolic - 8480-6 169 mm[Hg] BP sys pulse rate E&M - 8867-4 73 /min Heart rate temperature E&M 98.8 [degF] Body temperature weight E&M - 3141-9 207.5 [lb_av] Weight Measured blood pressure, diastolic - 8462-4 119 mm[Hg] BP [place] blood pressure, systolic - 8480-6 187 mm[Hg] BP sys pulse rate E&M - 8867-4 88 /min Heart rate temperature E&M 97.8 [degF] Body temperature weight E&M - 3141-9 212 [lb_av] Weight Measured Diagnostic Results Date Name Value Unit Range Description Lab Report: CBC - Hematology erythrocyte (RBC) count 4.72 10^6/MM^3 10*6/mm3 4.69-6.13 hemoglobin, blood 14.4 g/dL 13.5-17.5 hematocrit, blood 42.4 % 41.0-53.0 mean corpuscular volume, RBC 90 fL 80-97 mean corpuscular hemoglobin, RBC 30.4 pg 27.0-31.2 mean corpuscular hemoglobin concentration, RBC 33.9 G/DL % 31.8- 35.4 red blood cell distribution width 15.4 % 11.6-14.8 platelet count 229 10^3/MM^3 10*3/mm3 919-395 3281/09/06 leukocyte count, blood 9.7 10^3/MM^3 10*3/mm3 4.6-10.2 Lab Report: Comp. Metabolic Panel, Uric Acid - Chemistry sodium, serum 139 mmol/L 198-364 1323/04/22 carbon dioxide, venous blood 29.4 mmol/L 21.0-32.0 potassium, serum 4.1 mmol/L 3.5-5.2 chloride, serum 104 mmol/L 98-107 blood glucose 104 mg/dL 65-110 urea nitrogen, blood 29 mg/dL 7-18 creatinine, serum 1.65 mg/dL 0.55-1.30 alanine aminotransferase (SGPT), serum 40 U/L 12-78 aspartate aminotransferase (SGOT), serum 21 U/L 15-37 calcium, serum 9.4 mg/dL 8.5-10.1 bilirubin, serum, total 0.60 mg/dL 0.00-1.00 uric acid, serum 10.7 mg/dL 2.6-7.2 Lab Report: HEPATITIS B SAB/Immune Status, RUBELLA IGG AB(Immune Status) - Serology rubella antibody, serum, IgG 2.06 Lab Report: MICROALB/CREAT W/RATIO - Chemistry albumin/creatinine ratio, urine < 30 mg/g mg/g{creat} 0-29 Lab Report: MICROALB/CREAT W/RATIO - Lab microalbumin, urine 80 0-19 Lab Report: Prostatic Specific Ag - Chemistry prostate specific antigen 1.31 ng/mL 0.00-4.00 Lab Report: RapidStrep Rflx/Cx - Lab Microbial identification kit, rapid strep method Negative-Throat Culture to Follow Negative Lab Report: VITAMIN D, 25-HYDROXY/14453 - Chemistry vitamin D 25-hydroxy, serum 23 ng/mL 30-100 Encounters Code Encounter Date Provider Facility CPT-76629 Level 4 Est. Patient 22:55:17 CDT Robbie Busby MD [facility] CPT-53597 Level 3 Est. Patient 12:38:24 CDT Desmond Diaz DO [facility] CPT-60359 Level 4 Est. 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 Patient 14:50:10 CDT Robbie Busby MD [facility] CPT-52295 Level 4 Est. Patient 23:30:43 CDT Robbie Busby MD [facility] CPT-99781 Level 4 Est. Patient 10:30:43 CDT Robbie Busby MD [facility] CPT-37275 Level 3 Est. Patient 17:08:12 CDT Alex LAVAREZ [facility] CPT-39917 Level 4 Est. Patient 17:51:38 CDT Robbie Busby MD [facility] CPT-97608 Level 4 Est. Patient 14:00:21 CDT Robbie Busby MD [facility] CPT-49702 Level 4 Est. Patient 12:46:48 CDT Robbie Busby MD [facility] CPT-39576 Level 4 Est. Patient 13:34:33 CDT Robbie Busby MD [facility] CPT-58865 Level 4 Est. Patient 16:58:28 CDT Robbie Busby MD [facility] CPT-14693 Level 3 Est. Patient 19:36:[address] [facility] CPT-56520 Level 3 Est. Patient 12:58:15 CDT Robbie Busby MD [facility] Procedures Code Procedure Name Date Entry Date Standard Description CPT-G0438 Initial Annual Wellness Exam 08:10:28 CDT CPT-50493 Venipuncture Draw Fee 13:07:17 CDT CPT-G0008 Administration of Influenza Virus Vaccine 16:09:59 CDT CPT-33314 Fluzone Quadrivalent Intramuscular Suspension 0.5 ML 16: 09:59 CDT CPT-64669 Spec Collection and Handling Fee 15:05:50 CDT
--- OUTSIDE RECORDS SUMMARY | 2018-04-18 10:15 | XMS REPORT | Clinical Summary ---
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 Rober Rodríguez APRN Other malignant secondary hypertension Tachycardia 785.0 Active Rober Rodríguez APRN Tachycardia, unspecified Insect bite, infected 919.5 Active Robbie Busby MD Insect bite, nonvenomous, of other, multiple, and unspecified sites, infected Abscess, skin 682.9 Active Robbie Busby MD Cellulitis and abscess of unspecified sites URI 465.9 Active Rober Rodríguez APRN Acute upper respiratory infections of unspecified site Hypertension 401.9 Active Rober Rodríguez APRN Unspecified essential hypertension Sinusitis - acute 461.9 Active Erin Garsia APRN Acute sinusitis, unspecified Acute confusion 293.0 Active Erin Garsia APRN Delirium due to conditions classified elsewhere Headache 784.0 Active Erin Garsia APRN Headache Back pain 724.5 Active Erin Garsia APRN Backache, unspecified Back pain, thoracic region 724.1 Active Robbie Busby MD Pain in thoracic spine Preventive health care V70.0 Active Gali Negro Routine general medical examination at a health care facility Medication List Medication Instructions Start Date Stop Date Generic Name NDC Status Provider Patient Instruction CYCLOBENZAPRINE HCL 10 MG TABS 1 tablet by mouth three times daily as needed for muscle spasm/pain for 10 days CYCLOBENZAPRINE HCL 89562950804 Active Erin Garsia APRN Active PREDNISONE 20 MG TAB take 3 tabs daily for 3 days, 2 tabs daily for 3 days, 1 tab daily for 3 days, 1/2 tab daily for 4 days PREDNISONE 47383841995 No Longer Active Erin Garsia APRN Active CLONIDINE HCL 0.2 MG ORAL TABS 1 TAB BY MOUTH EVERY 8 HOURS 12/29 CLONIDINE HCL 51526773245 No Longer Active Erin Garsia APRN Active MECLIZINE HCL 25 MG TAB one 4 times a day as needed for dizziness MECLIZINE HCL 17396758090 No Longer Active Erin Garsia APRN Active SPIRONOLACTONE 25 MG TAB 4 tablets by mouth daily SPIRONOLACTONE 31740279833 No Longer Active Erin Garsia APRN Active LEVAQUIN 500 MG TAB 1 tablet by mouth daily for 7 days LEVOFLOXACIN 49438541762 No Longer Active Erin Garsia APRN Active BACTRIM DS 800-160 MG TAB 1 tab by mouth twice daily TRIMETHOPRIM-SULFAMETHOXAZOLE 27411909252 No Longer Active Robbie Busby MD Active HYDRALAZINE HCL 50 MG ORAL TABS TWO BY MOUTH THREE TIMES DAILY HYDRALAZINE HCL 09104470225 No Longer Active 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 HYDROCODONE-ACETAMINOPHEN 5-325 MG TABS 1 tab by mouth BID prn back pain 2013 HYDROCODONE-ACETAMINOPHEN 43846495078 No Longer Active 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 HYDROCHLOROTHIAZIDE TABS Take one by mouth daily HYDROCHLOROTHIAZIDE TABS 65364672502 No Longer Active 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 LAMISIL 125 MG ORAL PACK 1 TAB PO DAILY TERBINAFINE HCL 45452181236 No Longer Active 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 TRILEPTAL 150 MG ORAL TABS 1 TAB PO Q HS OXCARBAZEPINE 42093121292 No Longer Active 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 BETADINE 10 % EXT SOLN 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 POVIDONE-IODINE 90687505127 No Longer Active 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 NYSTATIN 559493 UNIT/ML M/T SUSP 5mL po QID x 10 days NYSTATIN 77481633839 No Longer Active Erin Garsia APRN Active PREDNISONE 20 MG TAB 1 tablet twice daily for 2 days, then 1 tablet once daily for 2 days PREDNISONE 63259114573 No Longer Active Robbie Busby MD Active CEFDINIR 300 MG ORAL CAPS Take 1 cap po bid x 10 days CEFDINIR 32435973713 No Longer Active Robbie Busby MD Active AMLODIPINE BESYLATE 10 MG TABS 1 tablet by mouth daily AMLODIPINE BESYLATE 83523724182 Active Robbie Busby MD Active CARVEDILOL 25 MG TABS 1 & 1/2 TAB po BID CARVEDILOL 91813377858 Active Robbie Busby MD Active VITAMIN D3 74902 UNIT CAPS 2 CAPS PO WEEKLY CHOLECALCIFEROL 76559474876 Active Erin Garsia APRN Active NEXIUM 40 MG CPDR 1 cap by mouth daily ESOMEPRAZOLE MAGNESIUM 95822778045 Active Robbie Busby MD Active PROTONIX 40 MG SOLR 1 po qday for acid reflux PANTOPRAZOLE SODIUM 60321342837 No Longer Active Gali Raida Active KEFLEX 500 MG CAP 1 po TID x 10 days CEPHALEXIN 32847091015 No Longer Active Robbie Busby MD Active FIORICET 50-300-40 MG ORAL CAPS take 1 tab po qday prn migraines. [id number] 06388397926 Active Robbie Busby MD Active TOPIRAMATE 50 MG ORAL TABS take 1 tab po BID for migraines. TOPIRAMATE 88438854229 Active Robbie Busby MD Active TEMAZEPAM 15 MG ORAL CAPS 1 TAB PO Q HS TEMAZEPAM 37022080813 Active Robbie Busby MD Active ALPRAZOLAM 2 MG ORAL TABS 1 TAB PO BID ALPRAZOLAM 89359406077 Active Robbie Busby MD Active FENOFIBRATE 145 MG TABS Take one by mouth daily FENOFIBRATE 77923932268 No Longer Active Robbie Busby MD Active SPIRONOLACTONE 50 MG TABS 1 tablet by mouth twice a day SPIRONOLACTONE 60740437222 No Longer Active Robbie Busby MD Active HYDRALAZINE HCL 25 MG TABS 1 tablet by mouth tid for hypertension HYDRALAZINE HCL 52539732595 No Longer Active Robbie Busby MD Active VIIBRYD 40 MG TABS take 1 tab po qday for depression. VILAZODONE HCL 05952680006 No Longer Active Robbie Busby MD Active TERBINAFINE HCL 250 MG TABS 1 tab po qday for foot infection 2014 TERBINAFINE HCL 37007024917 No Longer Active Robbie Busby MD Active GABAPENTIN 300 MG CAPS 1 po q hs for nerve pain GABAPENTIN 73877661550 Active Robbie Busby MD Active FLONASE 50 MCG/ACT SUSP 1 spray each nostril twice daily for allergies and runny nose FLUTICASONE PROPIONATE 59453727054 Active Robbie Busby MD Active CHERATUSSIN AC 100-10 MG/5ML ORAL SOLN 7.5 mL PO q 4-6 hrs PRN cough GUAIFENESIN-CODEINE 58259837200 No Longer Active Robbie Busby MD Active AZITHROMYCIN 250 MG ORAL TABS 2 tablets PO today---then, 1 tablet PO daily x 4 more days (and 1 optional refill) AZITHROMYCIN 91890451531 No Longer Active Robbie Busby MD Active NORVASC 10 MG TAB 1 tablet by mouth daily AMLODIPINE BESYLATE 76364123723 No Longer Active Alex ALVAREZ Active IMDUR 60 MG TAB CR take 1 tab po qday for blood pressure ISOSORBIDE MONONITRATE Active Robbie Busby MD Active ISOSORBIDE DINITRATE 30 MG TABS Take one by mouth daily ISOSORBIDE DINITRATE 68265694058 No Longer Active Robbie Busby MD Active VIIBRYD 40 MG TABS 1 TA B PO DAILY VILAZODONE HCL 94070348017 Active Robbie Busby MD Active LORATADINE 10 MG TABS 1 tablet by mouth daily for congestion and allergies. LORATADINE 51395207542 Active Robbie Busby MD Active ZITHROMAX 250 MG TAB 2 po today, then 1 po q days 2-5 AZITHROMYCIN 57616760652 No Longer Active Robbie Busby MD Active [id number] 0.3 MG/24HR PTWK apply 2 patches q week for HTN CLONIDINE HCL 99244442421 Active Robbie Busby MD Active NITROSTAT 0.4 MG SUBL PRN NITROGLYCERIN 40406843025 Active Robbie Busby MD Active DOXAZOSIN MESYLATE 4 MG TABS Take one by mouth daily DOXAZOSIN MESYLATE 00185036108 Active Robbie Busby MD Active TOPROL XL 200 MG [id number] Take one by mouth daily METOPROLOL SUCCINATE 53010986619 Active Robbie Busby MD Active VENLAFAXINE HCL ER 150 MG [id number] Take one by mouth daily VENLAFAXINE HCL 37629160323 Active Robbie Busby MD Active LIPITOR 40 MG TABS Take one by mouth daily ATORVASTATIN CALCIUM 49052894245 Active Robbie Busby MD Active ISOSORBIDE DINITRATE 30 MG TABS Take one by mouth daily ISOSORBIDE DINITRATE 30 MG TABS 587174 ISOSORBIDE DINITRATE Inactive NORVASC 10 MG TAB 1 tablet by mouth daily NORVASC 10 MG TAB 569517 AMLODIPINE BESYLATE Inactive AZITHROMYCIN 250 MG ORAL TABS 2 tablets PO today---then, 1 tablet PO daily x 4 more days (and 1 optional refill) AZITHROMYCIN 250 MG ORAL TABS 7470223 AZITHROMYCIN Inactive CHERATUSSIN AC 100-10 MG/5ML ORAL SOLN 7.5 mL PO q 4-6 hrs PRN cough CHERATUSSIN AC 100-10 MG/5ML ORAL SOLN 038497 GUAIFENESIN- CODEINE Inactive VIIBRYD 40 MG TABS take 1 tab po qday for depression. VIIBRYD 40 MG TABS VILAZODONE HCL Inactive HYDRALAZINE HCL 25 MG TABS 1 tablet by mouth tid for hypertension HYDRALAZINE HCL 25 MG TABS 962107 HYDRALAZINE HCL Inactive SPIRONOLACTONE 50 MG TABS 1 tablet by mouth twice a day SPIRONOLACTONE 50 MG TABS 658433 SPIRONOLACTONE Inactive FENOFIBRATE 145 MG TABS Take one by mouth daily FENOFIBRATE 145 MG TABS 012378 FENOFIBRATE Inactive PROTONIX 40 MG SOLR 1 po qday for acid reflux PROTONIX 40 MG SOLR 551156 PANTOPRAZOLE SODIUM Inactive CEFDINIR 300 MG ORAL CAPS Take 1 cap po bid x 10 days CEFDINIR 300 MG ORAL CAPS 841928 CEFDINIR Inactive PREDNISONE 20 MG TAB 1 tablet twice daily for 2 days, then 1 tablet once daily for 2 days PREDNISONE 20 MG TAB 583663 PREDNISONE Inactive NYSTATIN 267403 UNIT/ML M/T SUSP 5mL po QID x 10 days NYSTATIN 548184 UNIT/ML M/T SUSP 235334 NYSTATIN Inactive BETADINE 10 % EXT SOLN 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 BETADINE 10 % EXT SOLN 1666470 POVIDONE-IODINE Inactive TRILEPTAL 150 MG ORAL TABS 1 TAB PO Q HS TRILEPTAL 150 MG ORAL TABS 390256 OXCARBAZEPINE Inactive LAMISIL 125 MG ORAL PACK 1 TAB PO DAILY LAMISIL 125 MG ORAL PACK TERBINAFINE HCL Inactive HYDROCHLOROTHIAZIDE TABS Take one by mouth daily HYDROCHLOROTHIAZIDE TABS HYDROCHLOROTHIAZIDE TABS Inactive HYDROCODONE-ACETAMINOPHEN 5-325 MG TABS 1 tab by mouth BID prn back pain 2013 HYDROCODONE-ACETAMINOPHEN 5-325 MG TABS 533827 HYDROCODONE -ACETAMINOPHEN Inactive HYDRALAZINE HCL 50 MG ORAL TABS TWO BY MOUTH THREE TIMES DAILY HYDRALAZINE HCL 50 MG ORAL TABS 018499 HYDRALAZINE HCL Inactive LEVAQUIN 500 MG TAB 1 tablet by mouth daily for 7 days LEVAQUIN 500 MG TAB 594604 LEVOFLOXACIN Inactive SPIRONOLACTONE 25 MG TAB 4 tablets by mouth daily SPIRONOLACTONE 25 MG TAB 983105 SPIRONOLACTONE Inactive MECLIZINE HCL 25 MG TAB one 4 times a day as needed for dizziness MECLIZINE HCL 25 MG TAB 936704 MECLIZINE HCL Inactive CLONIDINE HCL 0.2 MG ORAL TABS 1 TAB BY MOUTH EVERY 8 HOURS 12/29 CLONIDINE HCL 0.2 MG ORAL TABS 041842 CLONIDINE HCL Inactive ZITHROMAX 250 MG TAB 2 po today, then 1 po q days 2-5 ZITHROMAX 250 MG TAB 9034394 AZITHROMYCIN Inactive TERBINAFINE HCL 250 MG TABS 1 tab po qday for foot infection 2014 TERBINAFINE HCL 250 MG TABS 003706 TERBINAFINE HCL Inactive KEFLEX 500 MG CAP 1 po TID x 10 days KEFLEX 500 MG CAP 892738 CEPHALEXIN Inactive BACTRIM DS 800-160 MG TAB 1 tab by mouth twice daily BACTRIM DS 800-160 MG TAB 897613 TRIMETHOPRIM-SULFAMETHOXAZOLE Inactive PREDNISONE 20 MG TAB take 3 tabs daily for 3 days, 2 tabs daily for 3 days, 1 tab daily for 3 days, 1/2 tab daily for 4 days PREDNISONE 20 MG TAB 807340 PREDNISONE Inactive Advance Directives Directive Description Start Date DISCUSSED WITH PATIENT -- NO DECISION MADE Vital Signs Date Name Value Unit Range Description blood pressure, diastolic - 8462-4 112 mm[Hg] BP [place] blood pressure, systolic - 8480-6 184 mm[Hg] BP sys height E&M - 8302-2 64 [in_us] Bdy height pulse rate E&M - 8867-4 75 /min Heart rate temperature E&M 96.9 [degF] Body temperature weight E&M - 3141-9 219 [lb_av] Weight Measured blood pressure, diastolic - 8462-4 92 mm[Hg] BP [place] blood pressure, systolic - 8480-6 151 mm[Hg] BP sys height E&M - 8302-2 64 [in_us] Bdy height pulse rate E&M - 8867-4 74 /min Heart rate temperature E&M 96.5 [degF] Body temperature weight E&M - 3141-9 217 [lb_av] Weight Measured blood pressure, diastolic - 8462-4 88 mm[Hg] BP [place] blood pressure, systolic - 8480-6 144 mm[Hg] BP sys height E&M - 8302-2 64 [in_us] Bdy height pulse rate E&M - 8867-4 65 /min Heart rate temperature E&M 97.3 [degF] Body temperature weight E&M - 3141-9 211.50 [lb_av] Weight Measured blood pressure, diastolic - 8462-4 127 mm[Hg] BP [place] blood pressure, systolic - 8480-6 206 mm[Hg] BP sys pulse rate E&M - 8867-4 81 /min Heart rate temperature E&M 97.9 [degF] Body temperature weight E&M - 3141-9 213 [lb_av] Weight Measured blood pressure, diastolic - 8462-4 118 mm[Hg] BP [place] blood pressure, systolic - 8480-6 194 mm[Hg] BP sys pulse rate E&M - 8867-4 74 /min Heart rate temperature E&M 97.3 [degF] Body temperature weight E&M - 3141-9 213.5 [lb_av] Weight Measured blood pressure, diastolic - 8462-4 111 mm[Hg] BP [place] blood pressure, systolic - 8480-6 200 mm[Hg] BP sys pulse rate E&M - 8867-4 72 /min Heart rate temperature E&M 97.7 [degF] Body temperature weight E&M - 3141-9 213.5 [lb_av] Weight Measured blood pressure, diastolic - 8462-4 120 mm[Hg] BP [place] blood pressure, systolic - 8480-6 194 mm[Hg] BP sys pulse rate E&M - 8867-4 100 /min Heart rate temperature E&M 97.4 [degF] Body temperature weight E&M - 3141-9 213 [lb_av] Weight Measured blood pressure, diastolic - 8462-4 96 mm[Hg] [...] E&M - 3141-9 213 [lb_av] Weight Measured Diagnostic Results Date Name Value Unit Range Description Lab Report: CBC - Hematology leukocyte count, blood 9.7 10^3/MM^3 10*3/mm3 4.6-10.2 erythrocyte (RBC) count 4.72 10^6/MM^3 10*6/mm3 4.69-6.13 hemoglobin, blood 14.4 g/dL 13.5-17.5 hematocrit, blood 42.4 % 41.0-53.0 mean corpuscular volume, RBC 90 fL 80-97 mean corpuscular hemoglobin, RBC 30.4 pg 27.0-31.2 mean corpuscular hemoglobin concentration, RBC 33.9 G/DL % 31.8- 35.4 red blood cell distribution width 15.4 % 11.6-14.8 platelet count 229 10^3/MM^3 10*3/mm3 142-424 Lab Report: CBC-QUEST, COMPREHENSIVE METABOLIC PANEL - [...] % 11.0-15.0 platelet count 185 THOUSAND/UL 10*3/mm3 504-968 0802/04/14 mean platelet volume 10.9 fL 7.5-12.5 Lab Report: LIPID PANEL, TSH/899, T4, FREE/866 - Chemistry cholesterol, serum 220 mg/dL 823-621 5115/04/14 HDL cholesterol, serum 30 mg/dL > OR=40 triglyceride, serum, fasting 466 mg/dL <150 LDL cholesterol, serum SEE NOTE mg/dL (calc) mg/dL <130 cholesterol/HDL ratio, serum 7.3 (calc) < OR=5.0 Lab Report: MICROALB/CREAT W/RATIO - Chemistry albumin/creatinine ratio, urine < 30 mg/g mg/g{creat} 0-29 Lab Report: MICROALB/CREAT W/RATIO - Lab microalbumin, urine 80 0-19 Lab Report: VITAMIN D, 25-HYDROXY/45486 - Chemistry vitamin D 25-hydroxy, serum 23 ng/mL 30-100 Office Visit: Confusion, dizziness after fall - Basic LDL target level 130 mg/dL Office Visit: Confusion, dizziness after fall - Chemistry HDL cholesterol, serum, target level 40 mg/dL triglyceride, target level 150 mg/dL cholesterol, target level 200 mg/dL Encounters Code Encounter Date Provider Facility CPT-67904 Level 4 Est. Patient 11:56:16 CDT Erin Garsia [facility] CPT-23700 Level 3 Est. Patient 17:48:02 CDT Robbie Busby MD [facility] CPT-87020 Level 4 Est. 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 CPT-01077 Level 3 Est. Patient 09:16:37 CDT Robbie Busby MD [facility] CPT-28349 Level 3 Est. Patient 19:38:43 CDT Robbie Busby MD [facility] CPT-87943 Level 3 Est. Patient 11:53:38 CDT Robbie Busby MD [facility] CPT-15893 Level 4 Est. Patient 12:52:22 CDT Rober Rodríguez [facility] CPT-77633 Level 4 Est. Patient 22:55:17 CDT Robbie Busby MD [facility] CPT-81799 Level 3 Est. Patient 12:38:24 CDT Desmond Diaz DO [facility] CPT-58261 Level 4 Est. 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 Patient 14:50:10 CDT Robbie Busby MD [facility] CPT-19720 Level 4 Est. Patient 23:30:43 CDT Robbie Busby MD [facility] CPT-35427 Level 4 Est. Patient 10:30:43 CDT Robbie Busby MD [facility] CPT-63337 Level 3 Est. Patient 17:08:12 CDT Alex Shaw [facility] CPT-97672 Level 4 Est. Patient 17:51:38 CDT Robbie Busby MD [facility] CPT-32918 Level 4 Est. Patient 14:00:21 CDT Robbie Busby MD [facility] CPT-61412 Level 4 Est. Patient 12:46:48 CDT Robbie Busby MD [facility] CPT-64886 Level 4 Est. Patient 13:34:33 CDT Robbie Busby MD [facility] CPT-14477 Level 4 Est. Patient 16:58:28 CDT Robbie Busby MD [facility] CPT-92335 Level 3 Est. Patient 19:36:53 CDT Alex Shaw [facility] CPT-72407 Level 3 Est. Patient 12:58:15 CDT Robbie Busby MD [facility] Procedures Code Procedure Name Date Entry Date Standard Description CPT-39067 First Vx - Ix admin for Medicare patients 16:32:53 CDT CPT-70008 Boostrix Intramuscular Suspension 5-2.5-18.5 16:32:53 CDT CPT-18438 TB Skin Test 11:42:28 CDT CPT-22282 Tdap 7yrs or > 11:42:28 CDT CPT-J0696 Rocephin 1000 mg (Ceftriaxone) 17:43:43 CHIP UNLOADER CPT-J1040 Depo Medrol 80 mg (Methyl Prednisolone Acetate) 17:43: 43 CHIP UNLOADER CPT-J1100 Decadron 8mg (Dexamethasone) 17:43:42 CHIP UNLOADER CPT-35868 Abx/Therapy Injection 17:43:42 CHIP UNLOADER CPT-09544 Abx/Therapy Injection 17:43:42 CHIP UNLOADER CPT-J1040 Depo Medrol 80 mg (Methyl Prednisolone Acetate) 09:43: 34 CHIP UNLOADER CPT-J1100 Decadron 8mg (Dexamethasone) 09:43:34 CHIP UNLOADER CPT-J0696 Rocephin 1gm Inj Solr 09:43:34 CHIP UNLOADER CPT-86802 Wound Culture - LAB USE ONLY 14:00:21 CDT CPT-I/D I/D Abscess 09:16:37 CDT CPT-10150 Venipuncture Draw Fee 15:20:23 CDT CPT-91895 Microalbumin - LAB USE ONLY 16:02:19 CDT CPT-13600 CBC - LAB USE ONLY 16:02:19 CDT CPT-16848 Venipuncture Draw Fee 16:02:19 CDT CPT-G0438 Initial Annual Wellness Exam 08:10:28 CDT CPT-91726 Venipuncture Draw Fee 13:07:17 CDT CPT-G0008 Administration of Influenza Virus Vaccine 16:09:59 CDT CPT-85990 Fluzone Quadrivalent Intramuscular Suspension 0.5 ML 16: 09:59 CDT CPT-21483 Spec Collection and Handling Fee 15:05:50 CDT
--- OUTSIDE RECORDS SUMMARY | 2018-04-18 10:16 | XMS REPORT | Clinical Summary ---
Author Author Admin, AKUA Organization [facility] Address Unknown Phone Unavailable Allergies, Adverse Reactions, Alerts Allergy Name Reaction Description Start Date Severity Status Provider No Known Allergies 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 LPN Conditions or Problems Problem Name Problem [...] DO Acute bronchitis Seasonal allergies 477.9 Active Robbie [...] disease, chronic, stage III 585.3 Active Ca [facility] Chronic kidney disease, Stage III (moderate) C V A / Stroke Active Robbie Busby MD Myocardial Infarction: Active Robbie Busby MD Acute myocardial infarction, unspecified site, initial episode of care ( History of) Sleep apnea, chronic 780.57 Active Erin Garsia [employer] Unspecified sleep apnea Continuous positive airway pressure rx V46.2 Active Erin Garsia [employer] Other dependence on machines, 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 Fatigue 780.79 Resolved Desmond Diaz DO Other malaise and fatigue Hypertension, secondary, 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 Desmond Diaz DO Other malignant secondary hypertension Tachycardia 785.0 Active Rober Rodríguez [employer] Tachycardia, unspecified Insect bite, infected 919.5 Resolved Desmond Diaz DO Insect bite, nonvenomous, of other, multiple, and unspecified sites, infected Abscess, skin 682.9 Resolved Desmond Diaz DO Cellulitis and abscess of unspecified sites URI 465.9 Resolved Desmond Diaz DO Acute upper respiratory infections of unspecified site Hypertension 401.9 Active Rober Rodríguez [employer] Unspecified essential hypertension Sinusitis - acute 461.9 Resolved Desmond Dante Diaz DO Acute sinusitis, unspecified Acute confusion 293.0 Resolved Desmond Dante Joe DO Delirium due to conditions classified elsewhere Headache 784.0 Resolved Desmond Dante Joe DO Headache Back pain 724.5 Resolved Desmond Dante Joe DO Backache , unspecified Back pain, thoracic region 724.1 Active Robbie Busby MD Pain in thoracic spine Preventive health care V70.0 Active Gali Negro Routine general medical examination at a health care facility Rib pain, right sided 786.50 Resolved Desmond Diaz DO Unspecified chest pain Vitamin D deficiency 268.9 Active Vanessa August Unspecified vitamin D deficiency Myalgias 729.1 Resolved Desmond Howell Joe DO Myalgia and myositis, unspecified URI 465.9 Resolved Desmond Dante Diaz DO Acute upper respiratory infections of unspecified site Hypogonadism, low testosterone 257.2 Active Erin Garsia [employer] Other testicular hypofunction Low back pain, chronic 724.2 Active Robbie Busby MD Lumbago Bronchitis-Acute 466.0 Inactive Desmond Howell Joe DO Acute bronchitis Polydipsia 783.5 Active Desmond Dante Joe DO Polydipsia Sinusitis ICD-461.9 Inactive 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 [employer] 2017 Low back pain, acute ICD-724.2 Inactive 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 [employer] Low back pain, chronic ICD-724.2 Inactive 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 [employer] Bronchitis, acute ICD-466.0 Inactive 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 [employer] Onychomycosis, toenails ICD-110.1 Inactive 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 [employer] Dizziness ICD-780.4 Inactive 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 [employer] 2017 Folliculitis ICD-704.8 Inactive 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 [employer] Pharyngitis-Acute ICD-462 Inactive 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 [employer] Fatigue ICD-780.79 Inactive 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 [employer] 09/20 Hypertension, secondary, malignant ICD-405.09 Inactive 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 [employer] Insect bite, infected ICD-919.5 Inactive 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 [employer] Abscess, skin ICD-682.9 Inactive 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 [employer] URI ICD-465.9 Inactive 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 [employer] Sinusitis - acute ICD-461.9 Inactive 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 [employer] Acute confusion ICD-293.0 Inactive 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 [employer] Headache ICD-784.0 Inactive 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 [employer] 09/20 Back pain ICD-724.5 Inactive 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 [employer] 2017 Rib pain, right sided ICD-786.50 Inactive 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 [employer] Myalgias ICD-729.1 Inactive 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 [employer] 09/20 URI ICD-465.9 Inactive 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 TANNA Bronchitis-Acute ICD-466.0 Inactive Desmond Diaz DO Medication List Medication Instructions Start Date Stop Date Generic Name NDC Status Provider Patient Instruction PREDNISONE 20 MG ORAL TABLET two tabs by mouth today, then one tab by mouth days two and three PREDNISONE 62786514458 Active Desmond Diaz DO Active AZITHROMYCIN 250 MG ORAL TABLET 2 po qd x 1 day, then 1 po qd x 4 days 09/20 AZITHROMYCIN 24879833173 No Longer Active Desmond Diaz DO Active TOPIRAMATE 50 MG ORAL TABLET take 1 tab po BID for migraines. TOPIRAMATE 36808937801 No Longer Active Desmond Diaz DO Active CYCLOBENZAPRINE HCL 10 MG ORAL TABLET 1 po TID PRN muscle spasm/pain for 10 days CYCLOBENZAPRINE HCL 79399326207 No Longer Active Desmond Diaz DO Active GUAIFENESIN ER 600 MG ORAL TABLET EXTENDED RELEASE 12 HOUR 1 tab po q am 2016 GUAIFENESIN 44617455051 No Longer Active Robbie Busby MD Active DIVALPROEX SODIUM ER 500 MG ORAL TABLET EXTENDED RELEASE 24 HOUR Once daily DIVALPROEX SODIUM 05535302739 Active Robbie Busby MD Active DEPO-TESTOSTERONE 200 MG/ML INTRAMUSCULAR SOLUTION 1 IM Injections every 2 weeks for low testosterone TESTOSTERONE CYPIONATE 35891464953 Active Zulema Blank LPN Active FLUTICASONE PROPIONATE 50 MCG/ACT NASAL SUSPENSION 2 sprays per nostril bid for 1 week, then 1 spray bid FLUTICASONE PROPIONATE 08660821103 Active Rober Rodríguez APRN Active HYDRALAZINE HCL 25 MG ORAL TABLET Take 1 tab BID. HYDRALAZINE HCL 64927581181 Active Rober Rodríguez APRN Active VITAMIN D3 32279 UNIT ORAL TABLET 2 po weekly CHOLECALCIFEROL 67638180621 Active Robbie Busby MD Active OXYCODONE HCL ER 10 MG ORAL TABLET ER 12 HOUR ABUSE-DETERRENT 1 tab po 3 times qd. OXYCODONE HCL 23784677217 Active Robbie Busby MD Active NITROSTAT 0.4 MG SUBLINGUAL TABLET SUBLINGUAL PRN NITROGLYCERIN 19282936087 No Longer Active Robbie Busby MD Active LORATADINE 10 MG ORAL TABLET 1 tablet by mouth daily for congestion and allergies. LORATADINE 34126139511 No Longer Active Robbie Busby MD Active FLONASE 50 MCG/ACT NASAL SUSPENSION 1 spray each nostril twice daily for allergies and runny nose FLUTICASONE PROPIONATE 26430704852 No Longer Active Robbie Busby MD Active FIORICET 50-300-40 MG ORAL CAPSULE take 1 tab po qday prn migraines. [id number] 59569713832 No Longer Active Robbie Busby MD Active VITAMIN D3 14830 UNIT ORAL CAPSULE 2 CAPS PO WEEKLY CHOLECALCIFEROL 82495887913 No Longer Active Robbie Busby MD Active CYCLOBENZAPRINE HCL 10 MG ORAL TABLET 1 tablet by mouth three times daily as needed for muscle spasm/pain for 10 days CYCLOBENZAPRINE HCL 40606839921 No Longer Active Robbie Busby MD Active PREDNISONE 20 MG ORAL TABLET take 3 tabs daily for 3 days, 2 tabs daily for 3 days, 1 tab daily for 3 days, 1/2 tab daily for 4 days PREDNISONE 95461059089 No Longer Active Erin Garsia APRN Active CLONIDINE HCL 0.2 MG ORAL TABLET 1 TAB BY MOUTH EVERY 8 HOURS CLONIDINE HCL 92051745214 No Longer Active Erin Garsia APRN Active MECLIZINE HCL 25 MG ORAL TABLET one 4 times a day as needed for dizziness MECLIZINE HCL 72974871895 No Longer Active Erin Garsia APRN Active SPIRONOLACTONE 25 MG ORAL TABLET 4 tablets by mouth daily SPIRONOLACTONE 89425493406 No Longer Active Erin Garsia APRN Active LEVAQUIN 500 MG ORAL TABLET 1 tablet by mouth daily for 7 days LEVOFLOXACIN 42405951727 No Longer Active Erin Garsia APRN Active BACTRIM DS 800-160 MG ORAL TABLET 1 tab by mouth twice daily 2015 TRIMETHOPRIM-SULFAMETHOXAZOLE 60525229307 No Longer Active Robbie Busby MD Active HYDRALAZINE HCL 50 MG ORAL TABLET TWO BY MOUTH THREE TIMES DAILY HYDRALAZINE HCL 12630553885 No Longer Active 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 [employer] Active HYDROCODONE-ACETAMINOPHEN 5-325 MG ORAL TABLET 1 tab by mouth BID prn back pain HYDROCODONE-ACETAMINOPHEN 00438839779 No Longer Active 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 [employer] Active HYDROCHLOROTHIAZIDE TABLET Take one by mouth daily HYDROCHLOROTHIAZIDE TABS 32939549485 No Longer Active 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 [employer] Active LAMISIL 125 MG ORAL PACKET 1 TAB PO DAILY TERBINAFINE HCL 19160167832 No Longer Active 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 [employer] Active TRILEPTAL 150 MG ORAL TABLET 1 TAB PO Q HS OXCARBAZEPINE 32689255967 No Longer Active 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 [employer] Active BETADINE 10 % EXTERNAL SOLUTION 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 07/29 POVIDONE-IODINE 40106287954 No Longer Active 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 [employer] Active NYSTATIN 333524 UNIT/ML MOUTH/THROAT SUSPENSION 5mL po QID x 10 days NYSTATIN 87036606023 No Longer Active Erin Garsia APRN Active PREDNISONE 20 MG ORAL TABLET 1 tablet twice daily for 2 days, then 1 tablet once daily for 2 days PREDNISONE 05824991450 No Longer Active Robbie Busby MD Active CEFDINIR 300 MG ORAL CAPSULE Take 1 cap po bid x 10 days CEFDINIR 16191916560 No Longer Active Robbie Busby MD Active AMLODIPINE BESYLATE 10 MG ORAL TABLET 1 tablet by mouth daily AMLODIPINE BESYLATE 14628520171 Active Robbie Busby MD Active CARVEDILOL 25 MG ORAL TABLET 1 & 1/2 TAB po BID CARVEDILOL 43433321835 Active Robbie Busby MD Active NEXIUM 40 MG ORAL CAPSULE DELAYED RELEASE 1 cap by mouth daily ESOMEPRAZOLE MAGNESIUM 48419151085 Active Robbie Busby MD Active PROTONIX 40 MG INTRAVENOUS SOLUTION RECONSTITUTED 1 po qday for acid reflux PANTOPRAZOLE SODIUM 60203593272 No Longer Active Gali Raida Active KEFLEX 500 MG ORAL CAPSULE 1 po TID x 10 days CEPHALEXIN 37892711116 No Longer Active Robbie Busby MD Active TEMAZEPAM 15 MG ORAL CAPSULE 1 TAB PO Q HS TEMAZEPAM 21246289350 Active Robbie Busby MD Active ALPRAZOLAM 2 MG ORAL TABLET 1 TAB PO BID ALPRAZOLAM 82004423788 Active Robbie Busby MD Active FENOFIBRATE 145 MG ORAL TABLET Take one by mouth daily FENOFIBRATE 77094529095 No Longer Active Rbobie Busby MD Active SPIRONOLACTONE 50 MG ORAL TABLET 1 tablet by mouth twice a day SPIRONOLACTONE 30169794373 No Longer Active Robbie Busby MD Active HYDRALAZINE HCL 25 MG ORAL TABLET 1 tablet by mouth tid for hypertension 2013 HYDRALAZINE HCL 82564404440 No Longer Active Robbie Busby MD Active VIIBRYD 40 MG ORAL TABLET take 1 tab po qday for depression. 2014 VILAZODONE HCL 25867894506 No Longer Active Robbie Busby MD Active TERBINAFINE HCL 250 MG ORAL TABLET 1 tab po qday for foot infection TERBINAFINE HCL 85449734320 No Longer Active Robbie Busby MD Active GABAPENTIN 300 MG ORAL CAPSULE 1 po q hs for nerve pain GABAPENTIN 15314236571 Active Robbie Busby MD Active CHERATUSSIN AC 100-10 MG/5ML ORAL SOLUTION 7.5 mL PO q 4-6 hrs PRN cough 2014 GUAIFENESIN-CODEINE 53764831980 No Longer Active Robbie Busby MD Active AZITHROMYCIN 250 MG ORAL TABLET 2 tablets PO today---then, 1 tablet PO daily x 4 more days (and 1 optional refill) AZITHROMYCIN 01892948479 No Longer Active Robbie Busby MD Active NORVASC 10 MG ORAL TABLET 1 tablet by mouth daily AMLODIPINE BESYLATE 03332607991 No Longer Active Alex ALVAREZ Active IMDUR 60 MG ORAL TABLET EXTENDED RELEASE 24 HOUR take 1 tab po qday for blood pressure ISOSORBIDE MONONITRATE 93303743862 Active Robbie Busby MD Active ISOSORBIDE DINITRATE 30 MG ORAL TABLET Take one by mouth daily ISOSORBIDE DINITRATE 11000450010 No Longer Active Robbie Busby MD Active VIIBRYD 40 MG ORAL TABLET 1 TA B PO DAILY VILAZODONE HCL 65622973316 Active Robbie Busby MD Active ZITHROMAX 250 MG ORAL TABLET 2 po today, then 1 po q days 2-5 AZITHROMYCIN 80768272793 No Longer Active Robbie Busby MD Active [id number] 0.3 MG/24HR TRANSDERMAL PATCH WEEKLY apply 2 patches q week for HTN CLONIDINE HCL 73338600197 Active Robbie Busby MD Active DOXAZOSIN MESYLATE 4 MG ORAL TABLET Take one by mouth daily DOXAZOSIN MESYLATE 97957140179 Active Robbie Busby MD Active TOPROL XL 200 MG ORAL TABLET EXTENDED RELEASE 24 HOUR Take one by mouth daily METOPROLOL SUCCINATE 83946023001 Active Robbie Busby MD Active VENLAFAXINE HCL ER 150 MG ORAL TABLET EXTENDED RELEASE 24 HOUR Take one by mouth daily VENLAFAXINE HCL 90478233726 Active Robbie Busby MD Active LIPITOR 40 MG ORAL TABLET Take one by mouth daily ATORVASTATIN CALCIUM 25439497775 Active Robbie Busby MD Active ISOSORBIDE DINITRATE 30 MG ORAL TABLET Take one by mouth daily ISOSORBIDE DINITRATE 30 MG ORAL TABLET 925454 ISOSORBIDE DINITRATE Inactive NORVASC 10 MG ORAL TABLET 1 tablet by mouth daily NORVASC 10 MG ORAL TABLET 457759 AMLODIPINE BESYLATE Inactive AZITHROMYCIN 250 MG ORAL TABLET 2 tablets PO today---then, 1 tablet PO daily x 4 more days (and 1 optional refill) AZITHROMYCIN 250 MG ORAL TABLET 054694 AZITHROMYCIN Inactive CHERATUSSIN AC 100-10 MG/5ML ORAL SOLUTION 7.5 mL PO q 4-6 hrs PRN cough 2014 CHERATUSSIN AC 100-10 MG/5ML ORAL SOLUTION 900511 GUAIFENESIN-CODEINE Inactive VIIBRYD 40 MG ORAL TABLET take 1 tab po qday for depression. 2014 VIIBRYD 40 MG ORAL TABLET VILAZODONE HCL Inactive HYDRALAZINE HCL 25 MG ORAL TABLET 1 tablet by mouth tid for hypertension 2013 HYDRALAZINE HCL 25 MG ORAL TABLET 249328 HYDRALAZINE HCL Inactive SPIRONOLACTONE 50 MG ORAL TABLET 1 tablet by mouth twice a day SPIRONOLACTONE 50 MG ORAL TABLET 731135 SPIRONOLACTONE Inactive FENOFIBRATE 145 MG ORAL TABLET Take one by mouth daily FENOFIBRATE 145 MG ORAL TABLET 626182 FENOFIBRATE Inactive PROTONIX 40 MG INTRAVENOUS SOLUTION RECONSTITUTED 1 po qday for acid reflux PROTONIX 40 MG INTRAVENOUS SOLUTION RECONSTITUTED 936394 PANTOPRAZOLE SODIUM Inactive CEFDINIR 300 MG ORAL CAPSULE Take 1 cap po bid x 10 days CEFDINIR 300 MG ORAL CAPSULE 124216 CEFDINIR Inactive PREDNISONE 20 MG ORAL TABLET 1 tablet twice daily for 2 days, then 1 tablet once daily for 2 days PREDNISONE 20 MG ORAL TABLET 467107 PREDNISONE Inactive NYSTATIN 449509 UNIT/ML MOUTH/THROAT SUSPENSION 5mL po QID x 10 days NYSTATIN 466531 UNIT/ML MOUTH/THROAT SUSPENSION 666060 NYSTATIN Inactive BETADINE 10 % EXTERNAL SOLUTION 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 07/29 BETADINE 10 % EXTERNAL SOLUTION 7983953 POVIDONE-IODINE Inactive TRILEPTAL 150 MG ORAL TABLET 1 TAB PO Q HS TRILEPTAL 150 MG ORAL TABLET 688732 OXCARBAZEPINE Inactive LAMISIL 125 MG ORAL PACKET 1 TAB PO DAILY LAMISIL 125 MG ORAL PACKET TERBINAFINE HCL Inactive HYDROCHLOROTHIAZIDE TABLET Take one by mouth daily HYDROCHLOROTHIAZIDE TABLET HYDROCHLOROTHIAZIDE TABS Inactive HYDROCODONE-ACETAMINOPHEN 5-325 MG ORAL TABLET 1 tab by mouth BID prn back pain HYDROCODONE-ACETAMINOPHEN 5-325 MG ORAL TABLET 401086 HYDROCODONE-ACETAMINOPHEN Inactive HYDRALAZINE HCL 50 MG ORAL TABLET TWO BY MOUTH THREE TIMES DAILY HYDRALAZINE HCL 50 MG ORAL TABLET 599992 HYDRALAZINE HCL Inactive LEVAQUIN 500 MG ORAL TABLET 1 tablet by mouth daily for 7 days LEVAQUIN 500 MG ORAL TABLET 839832 LEVOFLOXACIN Inactive SPIRONOLACTONE 25 MG ORAL TABLET 4 tablets by mouth daily SPIRONOLACTONE 25 MG ORAL TABLET 903320 SPIRONOLACTONE Inactive MECLIZINE HCL 25 MG ORAL TABLET one 4 times a day as needed for dizziness MECLIZINE HCL 25 MG ORAL TABLET 199562 MECLIZINE HCL Inactive CLONIDINE HCL 0.2 MG ORAL TABLET 1 TAB BY MOUTH EVERY 8 HOURS CLONIDINE HCL 0.2 MG ORAL TABLET 083828 CLONIDINE HCL Inactive CYCLOBENZAPRINE HCL 10 MG ORAL TABLET 1 tablet by mouth three times daily as needed for muscle spasm/pain for 10 days CYCLOBENZAPRINE HCL 10 MG ORAL TABLET 814816 CYCLOBENZAPRINE HCL Inactive VITAMIN D3 80040 UNIT ORAL CAPSULE 2 CAPS PO WEEKLY VITAMIN D3 69291 UNIT ORAL CAPSULE CHOLECALCIFEROL Inactive FIORICET 50-300-40 MG ORAL CAPSULE take 1 tab po qday prn migraines. FIORICET 50-300-40 MG ORAL CAPSULE 469735 BUTALBITAL-APAP- CAFFEINE Inactive FLONASE 50 MCG/ACT NASAL SUSPENSION 1 spray each nostril twice daily for allergies and runny nose FLONASE 50 MCG/ACT NASAL SUSPENSION 7943424 FLUTICASONE PROPIONATE Inactive LORATADINE 10 MG ORAL TABLET 1 tablet by mouth daily for congestion and allergies. LORATADINE 10 MG ORAL TABLET 809104 LORATADINE Inactive NITROSTAT 0.4 MG SUBLINGUAL TABLET SUBLINGUAL PRN NITROSTAT 0.4 MG SUBLINGUAL TABLET SUBLINGUAL 852203 NITROGLYCERIN Inactive GUAIFENESIN ER 600 MG ORAL TABLET EXTENDED RELEASE 12 HOUR 1 tab po q am 2016 GUAIFENESIN ER 600 MG ORAL TABLET EXTENDED RELEASE 12 HOUR GUAIFENESIN Inactive CYCLOBENZAPRINE HCL 10 MG ORAL TABLET 1 po TID PRN muscle spasm/pain for 10 days CYCLOBENZAPRINE HCL 10 MG ORAL TABLET 643135 CYCLOBENZAPRINE HCL Inactive TOPIRAMATE 50 MG ORAL TABLET take 1 tab po BID for migraines. TOPIRAMATE 50 MG ORAL TABLET 932729 TOPIRAMATE Inactive ZITHROMAX 250 MG ORAL TABLET 2 po today, then 1 po q days 2-5 ZITHROMAX 250 MG ORAL TABLET 605337 AZITHROMYCIN Inactive TERBINAFINE HCL 250 MG ORAL TABLET 1 tab po qday for foot infection TERBINAFINE HCL 250 MG ORAL TABLET 302473 TERBINAFINE HCL Inactive KEFLEX 500 MG ORAL CAPSULE 1 po TID x 10 days KEFLEX 500 MG ORAL CAPSULE 588498 CEPHALEXIN Inactive BACTRIM DS 800-160 MG ORAL TABLET 1 tab by mouth twice daily 2015 BACTRIM DS 800-160 MG ORAL TABLET 214427 TRIMETHOPRIM- SULFAMETHOXAZOLE Inactive PREDNISONE 20 MG ORAL TABLET take 3 tabs daily for 3 days, 2 tabs daily for 3 days, 1 tab daily for 3 days, 1/2 tab daily for 4 days PREDNISONE 20 MG ORAL TABLET 016174 PREDNISONE Inactive AZITHROMYCIN 250 MG ORAL TABLET 2 po qd x 1 day, then 1 po qd x 4 days 09/20 AZITHROMYCIN 250 MG ORAL TABLET 064674 AZITHROMYCIN Inactive Advance Directives Directive Description Start Date DISCUSSED WITH PATIENT -- NO DECISION MADE Vital Signs Date Name Value Unit Range Description blood pressure, diastolic 110 mm[Hg] BP del [...] temperature weight E&M 217 [lb_av] Weight Measured blood pressure, diastolic 88 mm[Hg] BP [place] rio blood pressure, systolic 144 mm[Hg] BP sys height E&M 64 [in_us] Bdy height pulse rate E&M 65 /min Heart rate temperature E&M 97.3 [degF] Body temperature weight E&M 211.50 [lb_av] Weight Measured blood pressure, diastolic 127 mm[Hg] BP [place] blood pressure, systolic 206 mm[Hg] BP sys pulse rate E&M 81 /min Heart rate temperature E&M 97.9 [degF] Body temperature weight E&M 213 [lb_av] Weight Measured Diagnostic Results Date Name Value Unit Range Description Lab Report: CBC W/DIFF, Comp. Metabolic Panel, CKI, UADIP W/MICRO, AUTO - Chemistry sodium, serum 142 mmol/L 100-363 8557/07/17 carbon dioxide, venous blood 28.2 mmol/L 21.0-32.0 [...] % 11.0-15.0 platelet count 185 THOUSAND/UL 10*3/mm3 774-876 7260/04/14 mean platelet volume 10.9 fL 7.5-12.5 Lab Report: HGBA1C, Basic Metabolic Panel - Chemistry hemoglobin A1C, blood, as % of total hemoglobin 6.9 % 4.3-6.0 sodium, serum 139 mmol/L 092-137 9888/01/04 potassium, serum 3.9 mmol/L 3.5-5.2 chloride, serum 103 mmol/L 98-107 carbon dioxide, venous blood 26.9 mmol/L 21.0-32.0 blood glucose 106 mg/dL 65-110 calcium, serum 9.0 mg/dL 8.5-10.1 urea nitrogen, blood 20 mg/dL 7-18 creatinine, serum 1.46 mg/dL 0.60-1.30 Lab Report: LIPID PANEL, TSH/899, T4, FREE/866 - Chemistry cholesterol, serum 220 mg/dL 168-113 2533/04/14 HDL cholesterol, serum 30 mg/dL > OR=40 [...] 1.80 ng/mL 0.00-4.00 Lab Report: VITAMIN D, 25-HYDROXY/35050 - Chemistry vitamin D 25-hydroxy, serum 25 ng/mL 30-100 Office Visit: Confusion, dizziness after fall - Basic LDL target level 130 mg/dL Office Visit: Confusion, dizziness after fall - Chemistry HDL cholesterol, serum, target level 40 mg/dL triglyceride, target level 150 mg/dL cholesterol, target level 200 mg/dL Encounters Code Encounter Date Provider Facility CPT-44031 Level 4 Est. Patient 15:23:44 [employer] Desmond Diaz DO [facility] CPT-61542 Level 3 Est. Patient 15:40:49 CDT Robbie Busby MD [facility] CPT-62477 Level 4 Est. Patient 15:18:19 CDT Robbie Busby MD [facility] CPT-10340 Level 3 Est. Patient 09:00:37 CDT Rober Rodríguez [facility] CPT-07782 Level 3 Est. Patient 16:07:10 CDT Robbie Busby MD [facility] CPT-82899 Level 4 Est. Patient 11:56:16 CDT Erin Garsia [facility] CPT-48498 Level 3 Est. Patient 17:48:02 CDT Robbie Busby MD [facility] CPT-69539 Level 4 Est. Patient 12:00:49 [employer] Rober Rodríguez [facility] CPT-16250 Level 3 Est. Patient 09:16:37 CDT Robbie Busby MD [facility] CPT-75166 Level 3 Est. Patient 19:38:43 CDT Robbie Busby MD [facility] CPT-05601 Level 3 Est. Patient 11:53:38 CDT Robbie Busby MD [facility]-88825 Level 4 Est. Patient 12:52:22 CDT Rober Rodríguez APRN [facility]-38696 Level 4 Est. Patient 22:55:17 CDT Robbie Busby MD [facility]-75407 Level 3 Est. Patient 12:38:24 CDT Desmond Diaz DO [facility]-55534 Level 4 Est. Patient 11:25:03 [employer]PER[employer] Robbie Busby MD [facility]-66128 Level 4 Est. Patient 14:50:10 CDT Robbie Busby MD [facility]-21393 Level 4 Est. Patient 23:30:43 CDT Robbie Busby MD [facility]-27096 Level 4 Est. Patient 10:30:43 CDT Robbie Busby MD [facility] CPT-63544 Level 3 Est. Patient 17:08:12 CDT Alex ALVAREZ [facility]-38545 Level 4 Est. Patient 17:51:38 CDT Robbie Busby MD [facility]-40052 Level 4 Est. Patient 14:00:21 CDT Robbie Busby MD [facility]-39670 Level 4 Est. Patient 12:46:48 CDT Robbie Busby MD [facility]-24362 Level 4 Est. Patient 13:34:33 CDT Robbie Busby MD [facility]-99308 Level 4 Est. Patient 16:58:28 CDT Robbie Busby MD [facility]-76030 Level 3 Est. Patient 19:36:53 CDT Alex ALVAREZ [facility] CPT-18029 Level 3 Est. Patient 12:58:15 CDT Robbie Busby MD [facility] Procedures Code Procedure Name Date Entry Date Standard Description CPT-J1071 Depo Testosterone 200mg 15:33:58 [employer] CPT-82069 Abx/Therapy Injection 15:33:58 [facility] CPT-J1071 Depo Testosterone 200mg 09:38:36 [employer] CPT-81962 Abx/Therapy Injection 09:38:36 [facility] CPT-J1071 Depo Testosterone 200mg 10:22:56 [employer] CPT-53360 Abx/Therapy Injection 10:22:56 [employer] CPT-J1071 Depo Testosterone 200mg 15:40:23 CDT CPT-08500 Abx/Therapy Injection 15:40:23 CDT CPT-J1071 Depo Testosterone 200mg 14:20:43 CDT CPT-33425 Abx/Therapy Injection 14:20:43 CDT CPT-J1071 Depo Testosterone 200mg 14:17:22 CDT CPT-61384 Abx/Therapy Injection 14:17:22 CDT CPT-J1071 Depo Testosterone 200mg 09:03:53 CDT CPT-36854 Abx/Therapy Injection 09:03:53 CDT CPT-G0439 [facility] Annual Wellness Exam 16:47:44 CDT CPT-J1071 Depo Testosterone 200mg 09:06:28 CDT CPT-46057 Abx/Therapy Injection 09:06:28 CDT CPT-J1071 Depo Testosterone 200mg 08:30:01 CDT CPT-49567 Abx/Therapy Injection 08:30:01 CDT CPT-J1071 Depo Testosterone 200mg 08:24:00 CDT CPT-43574 Abx/Therapy Injection 08:24:00 CDT CPT-79140 Venipuncture Draw Fee 14:39:06 CDT CPT-48906 Ribs unilateral 2V - XRAY USE ONLY 12:10:11 CDT CPT-60693 First Vx - Ix admin for Medicare patients 16:32:53 CDT CPT-56508 Boostrix Intramuscular Suspension 5-2.5-18.5 16:32:53 CDT CPT-54395 TB Skin Test 11:42:28 CDT CPT-40604 Tdap 7yrs or > 11:42:28 CDT CPT-J0696 Rocephin 1000 mg (Ceftriaxone) 17:43:43 [employer] CPT-J1040 Depo Medrol 80 mg (Methyl Prednisolone Acetate) 17:43: 43 [employer] CPT-J1100 Decadron 8mg (Dexamethasone) 17:43:42 [employer] CPT-88012 Abx/Therapy Injection 17:43:42 [employer] CPT-30208 Abx/Therapy Injection 17:43:42 [employer] CPT-J1040 Depo Medrol 80 mg (Methyl Prednisolone Acetate) 09:43: 34 [employer] CPT-J1100 Decadron 8mg (Dexamethasone) 09:43:34 [employer] CPT-J0696 Rocephin 1gm Inj Solr 09:43:34 [employer] CPT-25644 Wound Culture - LAB USE ONLY 14:00:21 CDT CPT-I/D I/D Abscess 09:16:37 CDT CPT-39176 Venipuncture Draw Fee 15:20:23 CDT CPT-11627 Microalbumin - LAB USE ONLY 16:02:19 CDT CPT-54752 CBC - LAB USE ONLY 16:02:19 CDT CPT-17865 Venipuncture Draw Fee 16:02:19 CDT CPT-G0438 Initial Annual Wellness Exam 08:10:28 CDT CPT-66212 Venipuncture Draw Fee 13:07:17 CDT CPT-G0008 Administration of Influenza Virus Vaccine 16:09:59 CDT CPT-85108 Fluzone Quadrivalent Intramuscular Suspension 0.5 ML 16: 09:59 CDT CPT-16157 Spec Collection and Handling Fee 15:05:50 CDT
--- OUTSIDE RECORDS SUMMARY | 2018-04-18 10:17 | XMS REPORT | Clinical Summary ---
Author Author Admin, AKUA Organization [facility] Address Unknown Phone Unavailable Allergies, Adverse Reactions, Alerts Allergy Name Reaction Description Start Date Severity Status Provider No Known Allergies Vanessa Mata Conditions or Problems Problem Name Problem Code [...] Active Robbie Busby MD Dizziness and giddiness Medication List Medication Instructions Start Date Stop Date Generic Name NDC Status Provider Patient Instruction MECLIZINE HCL 25 MG TAB one 4 times a day as needed for dizziness MECLIZINE HCL 62556175795 Active Robbie Busby MD Active TRILEPTAL 150 MG ORAL TABS 1 TAB PO Q HS OXCARBAZEPINE 29938198888 Active Robbie Busby MD Active TEMAZEPAM 15 MG ORAL CAPS 1 TAB PO Q HS TEMAZEPAM 36138634972 Active Robbie Busby MD Active ALPRAZOLAM 2 MG ORAL TABS 1 TAB PO BID ALPRAZOLAM 99217908711 Active Robbie Busby MD Active FENOFIBRATE 145 MG TABS Take one by mouth daily FENOFIBRATE 77577829060 No Longer Active Robbie Busby MD Active LAMISIL 125 MG ORAL PACK 1 TAB PO DAILY TERBINAFINE HCL 45756310189 Active Robbie Busby MD Active SPIRONOLACTONE 50 MG TABS 1 tablet by mouth twice a day SPIRONOLACTONE 48603408751 No Longer Active Robbie Busby MD Active HYDRALAZINE HCL 25 MG TABS 1 tablet by mouth tid for hypertension HYDRALAZINE HCL 86868530286 No Longer Active Robbie Busby MD Active VIIBRYD 40 MG TABS take 1 tab po qday for depression. VILAZODONE HCL 12458141155 No Longer Active Robbie Busby MD Active TERBINAFINE HCL 250 MG TABS 1 tab po qday for foot infection 2014 TERBINAFINE HCL 16726497586 No Longer Active Robbie Busby MD Active GABAPENTIN 300 MG CAPS 1 po q hs for nerve pain GABAPENTIN 87585835410 Active Robbie Busby MD Active FLONASE 50 MCG/ACT SUSP 1 spray each nostril twice daily for allergies and runny nose FLUTICASONE PROPIONATE 84362607202 Active Robbie Busby MD Active CHERATUSSIN AC 100-10 MG/5ML ORAL SOLN 7.5 mL PO q 4-6 hrs PRN cough GUAIFENESIN-CODEINE 81816350095 No Longer Active Robbie Busby MD Active AZITHROMYCIN 250 MG ORAL TABS 2 tablets PO today---then, 1 tablet PO daily x 4 more days (and 1 optional refill) AZITHROMYCIN 37599840744 No Longer Active Robbie Busby MD Active CLONIDINE HCL 0.2 MG ORAL TABS 1 TAB BY MOUTH EVERY 8 HOURS CLONIDINE HCL 90882629166 Active Robbie Busby MD Active HYDROCHLOROTHIAZIDE TABS Take one by mouth daily HYDROCHLOROTHIAZIDE TABS 36783974720 Active Alex ALVAREZ Active NORVASC 10 MG TAB 1 tablet by mouth daily AMLODIPINE BESYLATE 92843754320 No Longer Active Alex ALVAREZ Active PROTONIX 40 MG SOLR 1 po qday for acid reflux PANTOPRAZOLE SODIUM 71098471045 Active Robbie Busby MD Active IMDUR 60 MG TAB CR take 1 tab po qday for blood pressure ISOSORBIDE MONONITRATE Active Robbie Busby MD Active ISOSORBIDE DINITRATE 30 MG TABS Take one by mouth daily ISOSORBIDE DINITRATE 87137626612 No Longer Active Robbie Busby MD Active VIIBRYD 40 MG TABS 1 TA B PO DAILY VILAZODONE HCL 96049593501 Active Robbie Busby MD Active LORATADINE 10 MG TABS 1 tablet by mouth daily for congestion and allergies. LORATADINE 36862875507 Active Robbie Busby MD Active ZITHROMAX 250 MG TAB 2 po today, then 1 po q days 2-5 AZITHROMYCIN 09761251571 No Longer Active Robbie Busby MD Active HYDROCODONE-ACETAMINOPHEN 5-325 MG TABS 1 tab by mouth BID prn back pain 2013 HYDROCODONE-ACETAMINOPHEN 84215647246 Active Robbie Busby MD Active HYDRALAZINE HCL 50 MG TABS take 1 tab po QID for high blood pressure HYDRALAZINE HCL 52056126034 Active Robbie Busby MD Active ICVIUBXZ-NGN-5 0.3 MG/24HR PTWK apply 2 patches q week for HTN CLONIDINE HCL 03600090830 Active Alexa Menon MD PhD Active NITROSTAT 0.4 MG SUBL PRN NITROGLYCERIN 83899128943 Active Robbie Busby MD Active DOXAZOSIN MESYLATE 4 MG TABS Take one by mouth daily DOXAZOSIN MESYLATE 20957064798 Active Robbie Busby MD Active TOPROL XL 200 MG [id number] Take one by mouth daily METOPROLOL SUCCINATE 00646532153 Active Robbie Busby MD Active VENLAFAXINE HCL ER 150 MG [id number] Take one by mouth daily VENLAFAXINE HCL 16773056860 Active Robbie Busby MD Active LIPITOR 40 MG TABS Take one by mouth daily ATORVASTATIN CALCIUM 89962509602 Active Robbie Busby MD Active ISOSORBIDE DINITRATE 30 MG TABS Take one by mouth daily ISOSORBIDE DINITRATE 30 MG TABS 138154 ISOSORBIDE DINITRATE Inactive NORVASC 10 MG TAB 1 tablet by mouth daily NORVASC 10 MG TAB 175898 AMLODIPINE BESYLATE Inactive AZITHROMYCIN 250 MG ORAL TABS 2 tablets PO today---then, 1 tablet PO daily x 4 more days (and 1 optional refill) AZITHROMYCIN 250 MG ORAL TABS 0010551 AZITHROMYCIN Inactive CHERATUSSIN AC 100-10 MG/5ML ORAL SOLN 7.5 mL PO q 4-6 hrs PRN cough CHERATUSSIN AC 100-10 MG/5ML ORAL SOLN 822720 GUAIFENESIN- CODEINE Inactive VIIBRYD 40 MG TABS take 1 tab po qday for depression. VIIBRYD 40 MG TABS VILAZODONE HCL Inactive HYDRALAZINE HCL 25 MG TABS 1 tablet by mouth tid for hypertension HYDRALAZINE HCL 25 MG TABS 515475 HYDRALAZINE HCL Inactive SPIRONOLACTONE 50 MG TABS 1 tablet by mouth twice a day SPIRONOLACTONE 50 MG TABS 781282 SPIRONOLACTONE Inactive FENOFIBRATE 145 MG TABS Take one by mouth daily FENOFIBRATE 145 MG TABS 934962 FENOFIBRATE Inactive ZITHROMAX 250 MG TAB 2 po today, then 1 po q days 2-5 ZITHROMAX 250 MG TAB 2673793 AZITHROMYCIN Inactive TERBINAFINE HCL 250 MG TABS 1 tab po qday for foot infection 2014 TERBINAFINE HCL 250 MG TABS 585722 TERBINAFINE HCL Inactive Vital Signs Date Name Value Unit Range Description blood pressure, diastolic - 8462-4 107 mm[Hg] BP [place] blood pressure, systolic - 8480-6 174 mm[Hg] BP sys pulse rate E&M - 8867-4 82 /min Heart rate temperature E&M 97.6 [degF] Body temperature weight E&M - 3141-9 216 [lb_av] Weight Measured blood pressure, diastolic - 8462-4 130 mm[Hg] BP [place] blood pressure, systolic - 8480-6 196 mm[Hg] BP sys pulse rate E&M - 8867-4 78 /min Heart rate temperature E&M 97.7 [degF] Body temperature weight E&M - 3141-9 212 [lb_av] Weight Measured blood pressure, diastolic - 8462-4 96 mm[Hg] BP [place] blood pressure, systolic - 8480-6 135 mm[Hg] BP sys pulse rate E&M - 8867-4 79 /min Heart rate temperature E&M 97.8 [degF] Body temperature weight E&M - 3141-9 212 [lb_av] Weight Measured blood pressure, diastolic - 8462-4 119 mm[Hg] BP [place] blood pressure, systolic - 8480-6 204 mm[Hg] BP sys pulse rate E&M - 8867-4 69 /min Heart rate temperature E&M 97.7 [degF] Body temperature weight E&M - 3141-9 208.5 [lb_av] Weight Measured blood pressure, diastolic - 8462-4 128 mm[Hg] BP [place] blood pressure, systolic - 8480-6 196 mm[Hg] BP sys blood pressure, diastolic - 8462-4 130 mm[Hg] BP [place] blood pressure, systolic - 8480-6 191 mm[Hg] BP sys pulse rate E&M - 8867-4 72 /min Heart rate temperature E&M 97.8 [degF] Body temperature weight E&M - 3141-9 206 [lb_av] Weight Measured blood pressure, diastolic - 8462-4 106 mm[Hg] BP [place] blood pressure, systolic - 8480-6 162 mm[Hg] BP sys pulse rate E&M - 8867-4 99 /min Heart rate temperature E&M 98.6 [degF] Body temperature weight E&M - 3141-9 206 [lb_av] Weight Measured Diagnostic Results Date Name Value Unit Range Description Chart Maintenance: Outside labs entered on flowsheet - Chemistry sodium, serum 140 mmol/L potassium, serum 3.5 mmol/L blood glucose 98 mg/dL creatinine, serum 1.49 mg/dL Chart Maintenance: Outside labs entered on flowsheet - Hematology leukocyte count, blood 8.9 10*3/mm3 hemoglobin, blood 14.0 g/dL platelet count 285 10*3/mm3 Lab Report: CBC, Comp. Metabolic Panel - Chemistry sodium, serum 141 mmol/L 774-007 2016/12/05 potassium, serum 4.0 mmol/L 3.5-5.2 chloride, serum 104 mmol/L 98-107 carbon dioxide, venous blood 33.1 mmol/L 21.0-32.0 blood glucose 123 mg/dL 65-110 urea nitrogen, blood 11 mg/dL 7-18 creatinine, serum 1.70 mg/dL 0.60-1.30 alanine aminotransferase (SGPT), serum 30 U/L 12-78 aspartate aminotransferase (SGOT), serum 23 U/L 15-37 calcium, serum 9.5 mg/dL 8.5-10.1 bilirubin, serum, total 0.80 mg/dL 0.00-1.00 Lab Report: CBC, Comp. Metabolic Panel - Hematology mean corpuscular hemoglobin, RBC 30.9 pg 27.0-31.2 mean corpuscular hemoglobin concentration, RBC 33.4 G/DL % 31.8- 35.4 red blood cell distribution width 15.0 % 11.6-14.8 platelet count 253 10^3/MM^3 10*3/mm3 238-252 5589/12/05 mean corpuscular volume, RBC 93 fL 80-97 hematocrit, blood 44.5 % 41.0-53.0 hemoglobin, blood 14.9 g/dL 13.5-17.5 erythrocyte (RBC) count 4.80 10^6/MM^3 10*6/mm3 4.69-6.13 leukocyte count, blood 8.9 10^3/MM^3 10*3/mm3 4.6-10.2 Lab Report: Creatinine - Chemistry creatinine, serum 1.40 mg/dL 0.60-1.30 Encounters Code Encounter Date Provider Facility CPT-69289 Level 4 Est. Patient 14:50:10 CDT Robbie Busby MD [facility] CPT-74546 Level 4 Est. Patient 23:30:43 CDT Robbie Busby MD [facility] CPT-52839 Level 4 Est. Patient 10:30:43 CDT Robbie Busby MD [facility] CPT-14826 Level 3 Est. Patient 17:08:12 CDT [facility] CPT-78031 Level 4 Est. Patient 17:51:38 CDT Robbie Busby MD [facility] CPT-98802 Level 4 Est. Patient 14:00:21 CDT Robbie Busby MD [facility] CPT-06621 Level 4 Est. Patient 12:46:48 CDT Robbie Busby MD [facility] CPT-40114 Level 4 Est. Patient 13:34:33 CDT Robbie Busby MD [facility] CPT-81862 Level 4 Est. Patient 16:58:28 CDT Robbie Busby MD [facility] CPT-28953 Level 3 Est. Patient 19:36:53 CDT Alex ALVAREZ [facility] CPT-32582 Level 3 Est. Patient 12:58:15 CDT Robbie Busby MD [facility] Procedures Code Procedure Name Date Entry Date Standard Description CPT-G0008 Administration of Influenza Virus Vaccine 16:09:59 CDT CPT-34305 Fluzone Quadrivalent Intramuscular Suspension 0.5 ML 16: 09:59 CDT CPT-23737 Spec Collection and Handling Fee 15:05:50 CDT
--- OUTSIDE RECORDS SUMMARY | 2018-04-18 10:17 | XMS REPORT | Clinical Summary ---
Author Author Admin, AKUA Organization [facility] [employer] Address Unknown Phone Unavailable Allergies, Adverse Reactions, [...] rhinitis, cause unspecified Onychomycosis, toenails 110.1 Active Rbobie Busby MD Dermatophytosis of nail Dizziness 780.4 [...] of other, multiple, and unspecified sites, infected Medication List Medication Instructions Start Date Stop Date Generic Name NDC Status Provider Patient Instruction BACTRIM DS 800-160 MG TAB 1 tab by mouth twice daily TRIMETHOPRIM-SULFAMETHOXAZOLE 73018200646 Active Robbie Busby MD Active SPIRONOLACTONE 25 MG TAB 4 tablets by mouth daily SPIRONOLACTONE 29941863939 Active Robbie Busby MD Active HYDRALAZINE HCL 50 MG ORAL TABS TWO BY MOUTH THREE TIMES DAILY HYDRALAZINE HCL 03998619764 No Longer Active 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 [employer] Active HYDROCODONE-ACETAMINOPHEN 5-325 MG TABS 1 tab by mouth BID prn back pain 2013 HYDROCODONE-ACETAMINOPHEN 79576276402 No Longer Active 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 [employer] Active HYDROCHLOROTHIAZIDE TABS Take one by mouth daily HYDROCHLOROTHIAZIDE TABS 08975107794 No Longer Active 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 [employer] Active LAMISIL 125 MG ORAL PACK 1 TAB PO DAILY TERBINAFINE HCL 66987874098 No Longer Active 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 [employer] Active TRILEPTAL 150 MG ORAL TABS 1 TAB PO Q HS OXCARBAZEPINE 36887777129 No Longer Active 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 [employer] Active BETADINE 10 % EXT SOLN 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 POVIDONE-IODINE 20540106782 No Longer Active 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 [employer] Active NYSTATIN 682634 UNIT/ML M/T SUSP 5mL po QID x 10 days NYSTATIN 76630189920 No Longer Active Erin Garsia APRN Active PREDNISONE 20 MG TAB 1 tablet twice daily for 2 days, then 1 tablet once daily for 2 days PREDNISONE 49366114383 No Longer Active Robbie Busby MD Active CEFDINIR 300 MG ORAL CAPS Take 1 cap po bid x 10 days CEFDINIR 18993546063 No Longer Active Robbie Busby MD Active AMLODIPINE BESYLATE 10 MG TABS 1 tablet by mouth daily AMLODIPINE BESYLATE 21232825535 Active Robbie Busby MD Active CARVEDILOL 25 MG TABS 1 & 1/2 TAB po BID CARVEDILOL 37468917086 Active Robbie Busby MD Active VITAMIN D3 70160 UNIT CAPS 2 CAPS PO WEEKLY CHOLECALCIFEROL 23356770165 Active Erin Ady [employer] Active NEXIUM 40 MG CPDR 1 cap by mouth daily ESOMEPRAZOLE MAGNESIUM 45346725947 Active Gali Negro Active PROTONIX 40 MG SOLR 1 po qday for acid reflux PANTOPRAZOLE SODIUM 93245847437 No Longer Active Gali Rajuan carlos Active KEFLEX 500 MG CAP 1 po TID x 10 days CEPHALEXIN 19766094270 No Longer Active Robbie Busby MD Active FIORICET 50-300-40 MG ORAL CAPS take 1 tab po qday prn migraines. [id number] 73178105242 Active Robbie Busby MD Active TOPIRAMATE 50 MG ORAL TABS take 1 tab po BID for migraines. TOPIRAMATE 77507506420 Active Robbie Busby MD Active MECLIZINE HCL 25 MG TAB one 4 times a day as needed for dizziness MECLIZINE HCL 98524740297 Active Robbie Busby MD Active TEMAZEPAM 15 MG ORAL CAPS 1 TAB PO Q HS TEMAZEPAM 96436126679 Active Robbie Busby MD Active ALPRAZOLAM 2 MG ORAL TABS 1 TAB PO BID ALPRAZOLAM 50234794750 Active Robbie Busby MD Active FENOFIBRATE 145 MG TABS Take one by mouth daily FENOFIBRATE 45145393052 No Longer Active Robbie Busby MD Active SPIRONOLACTONE 50 MG TABS 1 tablet by mouth twice a day SPIRONOLACTONE 97715433090 No Longer Active Robbie Busby MD Active HYDRALAZINE HCL 25 MG TABS 1 tablet by mouth tid for hypertension HYDRALAZINE HCL 79548677736 No Longer Active Robbie Busby MD Active VIIBRYD 40 MG TABS take 1 tab po qday for depression. VILAZODONE HCL 65367564896 No Longer Active Robbie Busby MD Active TERBINAFINE HCL 250 MG TABS 1 tab po qday for foot infection 2014 TERBINAFINE HCL 79248196213 No Longer Active Robbie Busby MD Active GABAPENTIN 300 MG CAPS 1 po q hs for nerve pain GABAPENTIN 70779554511 Active Robbie Busby MD Active FLONASE 50 MCG/ACT SUSP 1 spray each nostril twice daily for allergies and runny nose FLUTICASONE PROPIONATE 61829667626 Active Robbie Busby MD Active CHERATUSSIN AC 100-10 MG/5ML ORAL SOLN 7.5 mL PO q 4-6 hrs PRN cough GUAIFENESIN-CODEINE 40071452266 No Longer Active Robbie Busby MD Active AZITHROMYCIN 250 MG ORAL TABS 2 tablets PO today---then, 1 tablet PO daily x 4 more days (and 1 optional refill) AZITHROMYCIN 78960741880 No Longer Active Robbie Busby MD Active CLONIDINE HCL 0.2 MG ORAL TABS 1 TAB BY MOUTH EVERY 8 HOURS CLONIDINE HCL 38919418543 Active Robbie Busby MD Active NORVASC 10 MG TAB 1 tablet by mouth daily AMLODIPINE BESYLATE 04796872730 No Longer Active Alex ALVAREZ Active IMDUR 60 MG TAB CR take 1 tab po qday for blood pressure ISOSORBIDE MONONITRATE Active Robbie Busby MD Active ISOSORBIDE DINITRATE 30 MG TABS Take one by mouth daily ISOSORBIDE DINITRATE 26390352918 No Longer Active Robbie Busby MD Active VIIBRYD 40 MG TABS 1 TA B PO DAILY VILAZODONE HCL 01787756078 Active Robbie Busby MD Active LORATADINE 10 MG TABS 1 tablet by mouth daily for congestion and allergies. LORATADINE 69289882890 Active Robbie Busby MD Active ZITHROMAX 250 MG TAB 2 po today, then 1 po q days 2-5 AZITHROMYCIN 33469240390 No Longer Active Robbie Busby MD Active TXYDHAEX-ORH-0 0.3 MG/24HR PTWK apply 2 patches q week for HTN CLONIDINE HCL 59004051429 Active Robbie Busby MD Active NITROSTAT 0.4 MG SUBL PRN NITROGLYCERIN 31360212517 Active Robbie Busby MD Active DOXAZOSIN MESYLATE 4 MG TABS Take one by mouth daily DOXAZOSIN MESYLATE 17365513216 Active Robbie Busby MD Active TOPROL XL 200 MG [id number] Take one by mouth daily METOPROLOL SUCCINATE 20782132883 Active Robbie Bubsy MD Active VENLAFAXINE HCL ER 150 MG [id number] Take one by mouth daily VENLAFAXINE HCL 66055183942 Active Robbie Busby MD Active LIPITOR 40 MG TABS Take one by mouth daily ATORVASTATIN CALCIUM 19544542104 Active Robbie Busby MD Active ISOSORBIDE DINITRATE 30 MG TABS Take one by mouth daily ISOSORBIDE DINITRATE 30 MG TABS 026240 ISOSORBIDE DINITRATE Inactive NORVASC 10 MG TAB 1 tablet by mouth daily NORVASC 10 MG TAB 583339 AMLODIPINE BESYLATE Inactive AZITHROMYCIN 250 MG ORAL TABS 2 tablets PO today---then, 1 tablet PO daily x 4 more days (and 1 optional refill) AZITHROMYCIN 250 MG ORAL TABS 3285532 AZITHROMYCIN Inactive CHERATUSSIN AC 100-10 MG/5ML ORAL SOLN 7.5 mL PO q 4-6 hrs PRN cough CHERATUSSIN AC 100-10 MG/5ML ORAL SOLN 324906 GUAIFENESIN- CODEINE Inactive VIIBRYD 40 MG TABS take 1 tab po qday for depression. VIIBRYD 40 MG TABS VILAZODONE HCL Inactive HYDRALAZINE HCL 25 MG TABS 1 tablet by mouth tid for hypertension HYDRALAZINE HCL 25 MG TABS 835273 HYDRALAZINE HCL Inactive SPIRONOLACTONE 50 MG TABS 1 tablet by mouth twice a day SPIRONOLACTONE 50 MG TABS 229683 SPIRONOLACTONE Inactive FENOFIBRATE 145 MG TABS Take one by mouth daily FENOFIBRATE 145 MG TABS 055535 FENOFIBRATE Inactive PROTONIX 40 MG SOLR 1 po qday for acid reflux PROTONIX 40 MG SOLR 977866 PANTOPRAZOLE SODIUM Inactive CEFDINIR 300 MG ORAL CAPS Take 1 cap po bid x 10 days CEFDINIR 300 MG ORAL CAPS 777998 CEFDINIR Inactive PREDNISONE 20 MG TAB 1 tablet twice daily for 2 days, then 1 tablet once daily for 2 days PREDNISONE 20 MG TAB 164043 PREDNISONE Inactive NYSTATIN 819510 UNIT/ML M/T SUSP 5mL po QID x 10 days NYSTATIN 544209 UNIT/ML M/T SUSP 119067 NYSTATIN Inactive BETADINE 10 % EXT SOLN 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 BETADINE 10 % EXT SOLN 7170877 POVIDONE-IODINE Inactive TRILEPTAL 150 MG ORAL TABS 1 TAB PO Q HS TRILEPTAL 150 MG ORAL TABS 062625 OXCARBAZEPINE Inactive LAMISIL 125 MG ORAL PACK 1 TAB PO DAILY LAMISIL 125 MG ORAL PACK TERBINAFINE HCL Inactive HYDROCHLOROTHIAZIDE TABS Take one by mouth daily HYDROCHLOROTHIAZIDE TABS HYDROCHLOROTHIAZIDE TABS Inactive HYDROCODONE-ACETAMINOPHEN 5-325 MG TABS 1 tab by mouth BID prn back pain 2013 HYDROCODONE-ACETAMINOPHEN 5-325 MG TABS 266692 HYDROCODONE -ACETAMINOPHEN Inactive HYDRALAZINE HCL 50 MG ORAL TABS TWO BY MOUTH THREE TIMES DAILY HYDRALAZINE HCL 50 MG ORAL TABS 251613 HYDRALAZINE HCL Inactive ZITHROMAX 250 MG TAB 2 po today, then 1 po q days 2-5 ZITHROMAX 250 MG TAB 1571994 AZITHROMYCIN Inactive TERBINAFINE HCL 250 MG TABS 1 tab po qday for foot infection 2014 TERBINAFINE HCL 250 MG TABS 660866 TERBINAFINE HCL Inactive KEFLEX 500 MG CAP 1 po TID x 10 days KEFLEX 500 MG CAP 661041 CEPHALEXIN Inactive Advance Directives Directive Description Start Date DISCUSSED WITH PATIENT -- NO DECISION MADE Vital Signs Date Name Value Unit Range Description blood pressure, diastolic - 8462-4 111 mm[Hg] [...] leukocyte count, blood 9.7 10^3/MM^3 10*3/mm3 4.6-10.2 red blood cell distribution width 15.4 % 11.6-14.8 platelet count 229 10^3/MM^3 10*3/mm3 676-840 0098/09/06 erythrocyte (RBC) count 4.72 10^6/MM^3 10*6/mm3 4.69-6.13 hematocrit, blood 42.4 % 41.0-53.0 mean corpuscular volume, RBC 90 fL 80-97 mean corpuscular hemoglobin, RBC 30.4 pg 27.0-31.2 mean corpuscular hemoglobin concentration, RBC 33.9 G/DL % 31.8- 35.4 hemoglobin, blood 14.4 g/dL 13.5-17.5 Lab Report: Comp. Metabolic Panel, Uric Acid - Chemistry chloride, serum 104 mmol/L 98-107 potassium, serum 4.1 mmol/L 3.5-5.2 carbon dioxide, venous blood 29.4 mmol/L 21.0-32.0 sodium, serum 139 mmol/L 244-629 0362/04/22 blood glucose 104 mg/dL 65-110 urea nitrogen, [...] to Follow Negative Lab Report: VITAMIN D, 25-HYDROXY/96224 - Chemistry vitamin D 25-hydroxy, serum 23 ng/mL 30-100 Encounters Code Encounter Date Provider Facility CPT-22267 Level 3 Est. Patient 19:38:43 CDT Robbie Busby MD [facility] CPT-81589 Level 3 Est. Patient 11:53:38 CDT Robbie Busby MD [facility] CPT-27798 Level 4 Est. Patient 12:52:22 CDT Rober Rodríguez APRN [facility] CPT-22660 Level 4 Est. Patient 22:55:17 CDT Robbie Busby MD [facility] CPT-87665 Level 3 Est. Patient 12:38:24 CDT Desmond Diaz DO [facility] CPT-45695 Level 4 Est. Patient 11:25:03 [employer] Robbie Busby MD [facility] CPT-40011 Level 4 Est. Patient 14:50:10 CDT Robbie Busby MD [facility] CPT-36261 Level 4 Est. Patient 23:30:43 CDT Robbie Busby MD [facility] CPT-08212 Level 4 Est. Patient 10:30:43 CDT Robbie Busby MD [facility] CPT-22521 Level 3 Est. Patient 17:08:12 CDT [facility] CPT-37603 Level 4 Est. Patient 17:51:38 CDT Robbie Busby MD [facility] CPT-85089 Level 4 Est. Patient 14:00:21 CDT Robbie Busby MD [facility] CPT-38635 Level 4 Est. Patient 12:46:48 CDT Robbie Busby MD [facility] CPT-48333 Level 4 Est. Patient 13:34:33 CDT Robbie Busby MD [facility] CPT-86632 Level 4 Est. Patient 16:58:28 CDT Robbie Busby MD [facility] CPT-06864 Level 3 Est. Patient 19:36:53 CDT [facility] CPT-24614 Level 3 Est. Patient 12:58:15 CDT Robbie Busby MD [facility] Procedures Code Procedure Name Date Entry Date Standard Description CPT-14210 Venipuncture Draw Fee 15:20:23 CDT CPT-54818 Microalbumin - LAB USE ONLY 16:02:19 CDT CPT-22632 CBC - LAB USE ONLY 16:02:19 CDT CPT-36150 Venipuncture Draw Fee 16:02:19 CDT CPT-G0438 Initial Annual Wellness Exam 08:10:28 CDT CPT-54568 Venipuncture Draw Fee 13:07:17 CDT CPT-G0008 Administration of Influenza Virus Vaccine 16:09:59 CDT CPT-61180 Fluzone Quadrivalent Intramuscular Suspension 0.5 ML 16: 09:59 CDT CPT-13542 Spec Collection and Handling Fee 15:05:50 CDT
--- OUTSIDE RECORDS SUMMARY | 2018-04-18 10:19 | XMS REPORT | Clinical Summary ---
Author Author Admin, AKUA Organization [employer] [facility] Address Unknown Phone Unavailable Allergies, Adverse Reactions, [...] chronic, stage III 585.3 Active Ca Garcia [facility] Chronic kidney disease, Stage III (moderate) C V A / Stroke Active Robbie Busby MD Myocardial Infarction: Active Robbie Busby MD Acute myocardial infarction, unspecified site, initial episode of care ( History of) Sleep apnea, chronic 780.57 Active Erin Garsia [employer] SALES CLERK Unspecified sleep apnea Continuous positive airway pressure rx V46.2 Active Erin Garsia FOOD SALES CLERK Other dependence on machines, 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 Fatigue 780.79 Resolved Desmond Diaz DO Other malaise and fatigue Hypertension, secondary, 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 Desmond Diaz DO Other malignant secondary hypertension Tachycardia 785.0 Active Rober Rodríguez FOOD SALES CLERK Tachycardia, unspecified Insect bite, infected 919.5 Resolved Desmond Diaz DO Insect bite, nonvenomous, of other, multiple, and unspecified sites, infected Abscess, skin 682.9 Resolved Desmond Diaz DO Cellulitis and abscess of unspecified sites URI 465.9 Resolved Desmond Diaz DO Acute upper respiratory infections of unspecified site Hypertension 401.9 Active Rober Rodríguez FOOD SALES CLERK Unspecified essential hypertension Sinusitis - acute 461.9 [...] Hypogonadism, low testosterone 257.2 Active Erin Garsia FOOD SALES CLERK Other testicular hypofunction Low back pain, chronic 724.2 Active Robbie Busby MD Lumbago Bronchitis-Acute 466.0 Inactive Desmond Howell Joe DO Acute bronchitis Polydipsia 783.5 Active Desmond Datne Joe DO Polydipsia Sinusitis ICD-461.9 Inactive 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 CARTON CATCHER 2017 Low back pain, acute ICD-724.2 Inactive 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 CARTON CATCHER Low back pain, chronic ICD-724.2 Inactive 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 CARTON CATCHER Bronchitis, acute ICD-466.0 Inactive 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 CARTON CATCHER Onychomycosis, toenails ICD-110.1 Inactive 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 CARTON CATCHER Dizziness ICD-780.4 Inactive 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 CARTON CATCHER 2017 Folliculitis ICD-704.8 Inactive 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 CARTON CATCHER Pharyngitis-Acute ICD-462 Inactive 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 CARTON CATCHER Fatigue ICD-780.79 Inactive 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 CARTON CATCHER 09/20 Hypertension, secondary, malignant ICD-405.09 Inactive 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 CARTON CATCHER Insect bite, infected ICD-919.5 Inactive 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 CARTON CATCHER Abscess, skin ICD-682.9 Inactive 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 CARTON CATCHER URI ICD-465.9 Inactive 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 CARTON CATCHER Sinusitis - acute ICD-461.9 Inactive 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 CARTON CATCHER Acute confusion ICD-293.0 Inactive 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 CARTON CATCHER Headache ICD-784.0 Inactive 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 CARTON CATCHER 09/20 Back pain ICD-724.5 Inactive 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 CARTON CATCHER 2017 Rib pain, right sided ICD-786.50 Inactive 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 CARTON CATCHER Myalgias ICD-729.1 Inactive 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 CARTON CATCHER 09/20 URI ICD-465.9 Inactive 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 TANNA Bronchitis-Acute ICD-466.0 Inactive Desmond Diaz DO Medication List Medication Instructions Start Date Stop Date Generic Name ND Status Provider Patient Instruction CYCLOBENZAPRINE HCL 10 MG ORAL TABLET 1 tablet by mouth three times daily as needed for muscle spasm/pain CYCLOBENZAPRINE HCL 08931945080 Active Robbie Busby MD Active METFORMIN HCL 500 MG ORAL TABLET 1 tablet by mouth daily for diabetes type 2 METFORMIN HCL 79515176505 Active Robbie Busby MD Active SINGULAIR 10 MG ORAL TABLET 1 po qday for allergies. MONTELUKAST SODIUM 15250833738 Active Robbie Busby MD Active PREDNISONE 20 MG ORAL TABLET two tabs by mouth today, then one tab by mouth days two and three PREDNISONE 11295313503 No Longer Active Robbie Busby MD Active TOPIRAMATE 50 MG ORAL TABLET 1 po BID for migraines TOPIRAMATE 25097412347 Active JONATHAN Moncada Active AZITHROMYCIN 250 MG ORAL TABLET 2 po qd x 1 day, then 1 po qd x 4 days 09/20 AZITHROMYCIN 61441747429 No Longer Active Desmond Diaz DO Active TOPIRAMATE 50 MG ORAL TABLET take 1 tab po BID for migraines. TOPIRAMATE 73260716754 No Longer Active Desmond Diaz DO Active CYCLOBENZAPRINE HCL 10 MG ORAL TABLET 1 po TID PRN muscle spasm/pain for 10 days CYCLOBENZAPRINE HCL 49988805352 No Longer Active Desmond Diaz DO Active GUAIFENESIN ER 600 MG ORAL TABLET EXTENDED RELEASE 12 HOUR 1 tab po q am 2016 GUAIFENESIN 27657969220 No Longer Active Robbie Busby MD Active DIVALPROEX SODIUM ER 500 MG ORAL TABLET EXTENDED RELEASE 24 HOUR Once daily DIVALPROEX SODIUM 09125936580 Active Robbie Busby MD Active DEPO-TESTOSTERONE 200 MG/ML INTRAMUSCULAR SOLUTION 1 IM Injections every 2 weeks for low testosterone TESTOSTERONE CYPIONATE 46310818403 Active Zulema Blank LPN Active FLUTICASONE PROPIONATE 50 MCG/ACT NASAL SUSPENSION 2 sprays per nostril bid for 1 week, then 1 spray bid FLUTICASONE PROPIONATE 16894762440 Active Rober Rodríguez APRN Active HYDRALAZINE HCL 25 MG ORAL TABLET Take 1 tab BID. HYDRALAZINE HCL 50242031688 Active Rober Rodríguez APRN Active VITAMIN D3 00491 UNIT ORAL TABLET 2 po weekly CHOLECALCIFEROL 97111709725 Active Robbei Busby MD Active OXYCODONE HCL ER 10 MG ORAL TABLET ER 12 HOUR ABUSE-DETERRENT 1 tab po 3 times qd. OXYCODONE HCL 75896288306 Active Robbie Busby MD Active NITROSTAT 0.4 MG SUBLINGUAL TABLET SUBLINGUAL PRN NITROGLYCERIN 71724134510 No Longer Active Robbie Busby MD Active LORATADINE 10 MG ORAL TABLET 1 tablet by mouth daily for congestion and allergies. LORATADINE 13128889547 No Longer Active Robbie Busby MD Active FLONASE 50 MCG/ACT NASAL SUSPENSION 1 spray each nostril twice daily for allergies and runny nose FLUTICASONE PROPIONATE 03051947010 No Longer Active Robbie Busby MD Active FIORICET 50-300-40 MG ORAL CAPSULE take 1 tab po qday prn migraines. [id number] 21258047749 No Longer Active Robbie Busby MD Active VITAMIN D3 47704 UNIT ORAL CAPSULE 2 CAPS PO WEEKLY CHOLECALCIFEROL 51654142007 No Longer Active Robbie Busby MD Active CYCLOBENZAPRINE HCL 10 MG ORAL TABLET 1 tablet by mouth three times daily as needed for muscle spasm/pain for 10 days CYCLOBENZAPRINE HCL 72774439067 No Longer Active Robbie Busby MD Active PREDNISONE 20 MG ORAL TABLET take 3 tabs daily for 3 days, 2 tabs daily for 3 days, 1 tab daily for 3 days, 1/2 tab daily for 4 days PREDNISONE 38290753503 No Longer Active Eirn Garsia APRN Active CLONIDINE HCL 0.2 MG ORAL TABLET 1 TAB BY MOUTH EVERY 8 HOURS CLONIDINE HCL 50905233271 No Longer Active Erin Garsia APRN Active MECLIZINE HCL 25 MG ORAL TABLET one 4 times a day as needed for dizziness MECLIZINE HCL 67636135228 No Longer Active Erin Garsia FOOD SALES CLERK Active SPIRONOLACTONE 25 MG ORAL TABLET 4 tablets by mouth daily SPIRONOLACTONE 81202577597 No Longer Active Erin Garsia APRN Active LEVAQUIN 500 MG ORAL TABLET 1 tablet by mouth daily for 7 days LEVOFLOXACIN 35846529870 No Longer Active Erin Garsia APRN Active BACTRIM DS 800-160 MG ORAL TABLET 1 tab by mouth twice daily 2015 TRIMETHOPRIM-SULFAMETHOXAZOLE 17718942506 No Longer Active Robbie Busby MD Active HYDRALAZINE HCL 50 MG ORAL TABLET TWO BY MOUTH THREE TIMES DAILY HYDRALAZINE HCL 71980156711 No Longer Active Rober Rodríguez APRN Active HYDROCODONE-ACETAMINOPHEN 5-325 MG ORAL TABLET 1 tab by mouth BID prn back pain HYDROCODONE-ACETAMINOPHEN 72976929180 No Longer Active Jillina Zulemal FOOD SALES CLERK Active HYDROCHLOROTHIAZIDE TABLET Take one by mouth daily HYDROCHLOROTHIAZIDE TABS 42958647740 No Longer Active Jillina Frakierstenl FOOD SALES CLERK Active LAMISIL 125 MG ORAL PACKET 1 TAB PO DAILY TERBINAFINE HCL 64746202499 No Longer Active 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 FOOD SALES CLERK Active TRILEPTAL 150 MG ORAL TABLET 1 TAB PO Q HS OXCARBAZEPINE 59595744121 No Longer Active 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 FOOD SALES CLERK Active BETADINE 10 % EXTERNAL SOLUTION 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 07/29 POVIDONE-IODINE 95778564115 No Longer Active Rober Rodríguez APRN Active NYSTATIN 794245 UNIT/ML MOUTH/THROAT SUSPENSION 5mL po QID x 10 days NYSTATIN 57819064995 No Longer Active Erin Garsia APRN Active PREDNISONE 20 MG ORAL TABLET 1 tablet twice daily for 2 days, then 1 tablet once daily for 2 days PREDNISONE 91642380185 No Longer Active Robbie Busby MD Active CEFDINIR 300 MG ORAL CAPSULE Take 1 cap po bid x 10 days CEFDINIR 43838337496 No Longer Active Robbie Busby MD Active AMLODIPINE BESYLATE 10 MG ORAL TABLET 1 tablet by mouth daily AMLODIPINE BESYLATE 58028461157 Active Robbie Busby MD Active CARVEDILOL 25 MG ORAL TABLET 1 & 1/2 TAB po BID CARVEDILOL 24002661159 Active Robbie Busby MD Active NEXIUM 40 MG ORAL CAPSULE DELAYED RELEASE 1 cap by mouth daily ESOMEPRAZOLE MAGNESIUM 47308295795 Active Robbie Busby MD Active PROTONIX 40 MG INTRAVENOUS SOLUTION RECONSTITUTED 1 po qday for acid reflux PANTOPRAZOLE SODIUM 09130201536 No Longer Active Gali Raida Active KEFLEX 500 MG ORAL CAPSULE 1 po TID x 10 days CEPHALEXIN 87432329220 No Longer Active Robbie Busby MD Active TEMAZEPAM 15 MG ORAL CAPSULE 1 TAB PO Q HS TEMAZEPAM 76868750838 Active Robbie Busby MD Active ALPRAZOLAM 2 MG ORAL TABLET 1 TAB PO BID ALPRAZOLAM 48585722210 Active Robbie Busby MD Active FENOFIBRATE 145 MG ORAL TABLET Take one by mouth daily FENOFIBRATE 52352783679 No Longer Active Robbie Busby MD Active SPIRONOLACTONE 50 MG ORAL TABLET 1 tablet by mouth twice a day SPIRONOLACTONE 99550026871 No Longer Active Robbie Busby MD Active HYDRALAZINE HCL 25 MG ORAL TABLET 1 tablet by mouth tid for hypertension 2013 HYDRALAZINE HCL 28013689732 No Longer Active Robbie Busby MD Active VIIBRYD 40 MG ORAL TABLET take 1 tab po qday for depression. 2014 VILAZODONE HCL 17458017730 No Longer Active Robbie Busby MD Active TERBINAFINE HCL 250 MG ORAL TABLET 1 tab po qday for foot infection TERBINAFINE HCL 76331737992 No Longer Active Robbie Busby MD Active GABAPENTIN 300 MG ORAL CAPSULE 1 po q hs for nerve pain GABAPENTIN 62113884138 Active Robbie Busby MD Active CHERATUSSIN AC 100-10 MG/5ML ORAL SOLUTION 7.5 mL PO q 4-6 hrs PRN cough 2014 GUAIFENESIN-CODEINE 94388233815 No Longer Active Robbie Busby MD Active AZITHROMYCIN 250 MG ORAL TABLET 2 tablets PO today---then, 1 tablet PO daily x 4 more days (and 1 optional refill) AZITHROMYCIN 40953633245 No Longer Active Robbie Busby MD Active NORVASC 10 MG ORAL TABLET 1 tablet by mouth daily AMLODIPINE BESYLATE 39207774144 No Longer Active Alex ALVAREZ Active IMDUR 60 MG ORAL TABLET EXTENDED RELEASE 24 HOUR take 1 tab po qday for blood pressure ISOSORBIDE MONONITRATE 46052166307 Active Robbie Busby MD Active ISOSORBIDE DINITRATE 30 MG ORAL TABLET Take one by mouth daily ISOSORBIDE DINITRATE 14809665926 No Longer Active Robbie Busby MD Active VIIBRYD 40 MG ORAL TABLET 1 TA B PO DAILY VILAZODONE HCL 53545351723 Active Robbie Busby MD Active ZITHROMAX 250 MG ORAL TABLET 2 po today, then 1 po q days 2-5 AZITHROMYCIN 84087794017 No Longer Active Robbie Busby MD Active [id number] 0.3 MG/24HR TRANSDERMAL PATCH WEEKLY apply 2 patches q week for HTN CLONIDINE HCL 68942794106 Active Robbie Busby MD Active DOXAZOSIN MESYLATE 4 MG ORAL TABLET Take one by mouth daily DOXAZOSIN MESYLATE 38626393523 Active Robbie Busby MD Active TOPROL XL 200 MG ORAL TABLET EXTENDED RELEASE 24 HOUR Take one by mouth daily METOPROLOL SUCCINATE 22298243851 Active Robbie Busby MD Active VENLAFAXINE HCL ER 150 MG ORAL TABLET EXTENDED RELEASE 24 HOUR Take one by mouth daily VENLAFAXINE HCL 89449679793 Active Robbie Busby MD Active LIPITOR 40 MG ORAL TABLET Take one by mouth daily ATORVASTATIN CALCIUM 03241690130 Active Robbie Busby MD Active ISOSORBIDE DINITRATE 30 MG ORAL TABLET Take one by mouth daily ISOSORBIDE DINITRATE 30 MG ORAL TABLET 869262 ISOSORBIDE DINITRATE Inactive NORVASC 10 MG ORAL TABLET 1 tablet by mouth daily NORVASC 10 MG ORAL TABLET 011787 AMLODIPINE BESYLATE Inactive AZITHROMYCIN 250 MG ORAL TABLET 2 tablets PO today---then, 1 tablet PO daily x 4 more days (and 1 optional refill) AZITHROMYCIN 250 MG ORAL TABLET 122920 AZITHROMYCIN Inactive CHERATUSSIN AC 100-10 MG/5ML ORAL SOLUTION 7.5 mL PO q 4-6 hrs PRN cough 2014 CHERATUSSIN AC 100-10 MG/5ML ORAL SOLUTION 125489 GUAIFENESIN-CODEINE Inactive VIIBRYD 40 MG ORAL TABLET take 1 tab po qday for depression. 2014 VIIBRYD 40 MG ORAL TABLET VILAZODONE HCL Inactive HYDRALAZINE HCL 25 MG ORAL TABLET 1 tablet by mouth tid for hypertension 2013 HYDRALAZINE HCL 25 MG ORAL TABLET 305542 HYDRALAZINE HCL Inactive SPIRONOLACTONE 50 MG ORAL TABLET 1 tablet by mouth twice a day SPIRONOLACTONE 50 MG ORAL TABLET 434831 SPIRONOLACTONE Inactive FENOFIBRATE 145 MG ORAL TABLET Take one by mouth daily FENOFIBRATE 145 MG ORAL TABLET 998883 FENOFIBRATE Inactive PROTONIX 40 MG INTRAVENOUS SOLUTION RECONSTITUTED 1 po qday for acid reflux PROTONIX 40 MG INTRAVENOUS SOLUTION RECONSTITUTED 522839 PANTOPRAZOLE SODIUM Inactive CEFDINIR 300 MG ORAL CAPSULE Take 1 cap po bid x 10 days CEFDINIR 300 MG ORAL CAPSULE 012373 CEFDINIR Inactive PREDNISONE 20 MG ORAL TABLET 1 tablet twice daily for 2 days, then 1 tablet once daily for 2 days PREDNISONE 20 MG ORAL TABLET 565422 PREDNISONE Inactive NYSTATIN 340929 UNIT/ML MOUTH/THROAT SUSPENSION 5mL po QID x 10 days NYSTATIN 430272 UNIT/ML MOUTH/THROAT SUSPENSION 558077 NYSTATIN Inactive BETADINE 10 % EXTERNAL SOLUTION 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 07/29 BETADINE 10 % EXTERNAL SOLUTION 6445731 POVIDONE-IODINE Inactive TRILEPTAL 150 MG ORAL TABLET 1 TAB PO Q HS TRILEPTAL 150 MG ORAL TABLET 330616 OXCARBAZEPINE Inactive LAMISIL 125 MG ORAL PACKET 1 TAB PO DAILY LAMISIL 125 MG ORAL PACKET TERBINAFINE HCL Inactive HYDROCHLOROTHIAZIDE TABLET Take one by mouth daily HYDROCHLOROTHIAZIDE TABLET HYDROCHLOROTHIAZIDE TABS Inactive HYDROCODONE-ACETAMINOPHEN 5-325 MG ORAL TABLET 1 tab by mouth BID prn back pain HYDROCODONE-ACETAMINOPHEN 5-325 MG ORAL TABLET 661289 HYDROCODONE-ACETAMINOPHEN Inactive HYDRALAZINE HCL 50 MG ORAL TABLET TWO BY MOUTH THREE TIMES DAILY HYDRALAZINE HCL 50 MG ORAL TABLET 395322 HYDRALAZINE HCL Inactive LEVAQUIN 500 MG ORAL TABLET 1 tablet by mouth daily for 7 days LEVAQUIN 500 MG ORAL TABLET 635546 LEVOFLOXACIN Inactive SPIRONOLACTONE 25 MG ORAL TABLET 4 tablets by mouth daily SPIRONOLACTONE 25 MG ORAL TABLET 170258 SPIRONOLACTONE Inactive MECLIZINE HCL 25 MG ORAL TABLET one 4 times a day as needed for dizziness MECLIZINE HCL 25 MG ORAL TABLET 382062 MECLIZINE HCL Inactive CLONIDINE HCL 0.2 MG ORAL TABLET 1 TAB BY MOUTH EVERY 8 HOURS CLONIDINE HCL 0.2 MG ORAL TABLET 829267 CLONIDINE HCL Inactive CYCLOBENZAPRINE HCL 10 MG ORAL TABLET 1 tablet by mouth three times daily as needed for muscle spasm/pain for 10 days CYCLOBENZAPRINE HCL 10 MG ORAL TABLET 933923 CYCLOBENZAPRINE HCL Inactive VITAMIN D3 25699 UNIT ORAL CAPSULE 2 CAPS PO WEEKLY VITAMIN D3 60758 UNIT ORAL CAPSULE CHOLECALCIFEROL Inactive FIORICET 50-300-40 MG ORAL CAPSULE take 1 tab po qday prn migraines. FIORICET 50-300-40 MG ORAL CAPSULE 590772 BUTALBITAL-APAP- CAFFEINE Inactive FLONASE 50 MCG/ACT NASAL SUSPENSION 1 spray each nostril twice daily for allergies and runny nose FLONASE 50 MCG/ACT NASAL SUSPENSION 4094557 FLUTICASONE PROPIONATE Inactive LORATADINE 10 MG ORAL TABLET 1 tablet by mouth daily for congestion and allergies. LORATADINE 10 MG ORAL TABLET 732790 LORATADINE Inactive NITROSTAT 0.4 MG SUBLINGUAL TABLET SUBLINGUAL PRN NITROSTAT 0.4 MG SUBLINGUAL TABLET SUBLINGUAL 259344 NITROGLYCERIN Inactive GUAIFENESIN ER 600 MG ORAL TABLET EXTENDED RELEASE 12 HOUR 1 tab po q am 2016 GUAIFENESIN ER 600 MG ORAL TABLET EXTENDED RELEASE 12 HOUR GUAIFENESIN Inactive CYCLOBENZAPRINE HCL 10 MG ORAL TABLET 1 po TID PRN muscle spasm/pain for 10 days CYCLOBENZAPRINE HCL 10 MG ORAL TABLET 792116 CYCLOBENZAPRINE HCL Inactive TOPIRAMATE 50 MG ORAL TABLET take 1 tab po BID for migraines. TOPIRAMATE 50 MG ORAL TABLET 636115 TOPIRAMATE Inactive PREDNISONE 20 MG ORAL TABLET two tabs by mouth today, then one tab by mouth days two and three PREDNISONE 20 MG ORAL TABLET 961013 PREDNISONE Inactive ZITHROMAX 250 MG ORAL TABLET 2 po today, then 1 po q days 2-5 ZITHROMAX 250 MG ORAL TABLET 416049 AZITHROMYCIN Inactive TERBINAFINE HCL 250 MG ORAL TABLET 1 tab po qday for foot infection TERBINAFINE HCL 250 MG ORAL TABLET 861790 TERBINAFINE HCL Inactive KEFLEX 500 MG ORAL CAPSULE 1 po TID x 10 days KEFLEX 500 MG ORAL CAPSULE 562515 CEPHALEXIN Inactive BACTRIM DS 800-160 MG ORAL TABLET 1 tab by mouth twice daily 2015 BACTRIM DS 800-160 MG ORAL TABLET 738596 TRIMETHOPRIM- SULFAMETHOXAZOLE Inactive PREDNISONE 20 MG ORAL TABLET take 3 tabs daily for 3 days, 2 tabs daily for 3 days, 1 tab daily for 3 days, 1/2 tab daily for 4 days PREDNISONE 20 MG ORAL TABLET 063710 PREDNISONE Inactive AZITHROMYCIN 250 MG ORAL TABLET 2 po qd x 1 day, then 1 po qd x 4 days 09/20 AZITHROMYCIN 250 MG ORAL TABLET 338540 AZITHROMYCIN Inactive Advance Directives Directive Description Start [...] Measured blood pressure, diastolic 99 mm[Hg] BP delr io blood pressure, systolic 140 mm[Hg] BP sys [...] AUTO - Chemistry sodium, serum 142 mmol/L 733-206 0399/07/17 carbon dioxide, venous blood 28.2 mmol/L 21.0-32.0 [...] % 11.0-15.0 platelet count 185 THOUSAND/UL 10*3/mm3 657-308 7838/04/14 mean platelet volume 10.9 fL 7.5-12.5 Lab Report: HGBA1C, Basic Metabolic Panel - Chemistry hemoglobin A1C, blood, as % of total hemoglobin 6.9 % 4.3-6.0 sodium, serum 139 mmol/L 590-867 7217/01/04 potassium, serum 3.9 mmol/L 3.5-5.2 chloride, serum 103 mmol/L 98-107 carbon dioxide, venous blood 26.9 mmol/L 21.0-32.0 blood glucose 106 mg/dL 65-110 calcium, serum 9.0 mg/dL 8.5-10.1 urea nitrogen, blood 20 mg/dL 7-18 creatinine, serum 1.46 mg/dL 0.60-1.30 Lab Report: LIPID PANEL, TSH/899, T4, FREE/866 - Chemistry cholesterol, serum 220 mg/dL 052-182 0558/04/14 HDL cholesterol, serum 30 mg/dL > OR=40 [...] 1.80 ng/mL 0.00-4.00 Lab Report: VITAMIN D, 25-HYDROXY/89136 - Chemistry vitamin D 25-hydroxy, serum 25 ng/mL 30-100 Office Visit: Confusion, dizziness after fall - Basic LDL target level 130 mg/dL Office Visit: Confusion, dizziness after fall - Chemistry HDL cholesterol, serum, target level 40 mg/dL triglyceride, target level 150 mg/dL cholesterol, target level 200 mg/dL Encounters Code Encounter Date Provider Facility CPT-60216 Level 4 Est. Patient 15:23:44 IDEA MAN Desmond Diaz DO [facility] CPT-22549 Level 3 Est. Patient 15:40:49 CDT Robbie Busby MD [facility] CPT-48025 Level 4 Est. Patient 15:18:19 CDT Robbie Busby MD [facility] CPT-42118 Level 3 Est. Patient 09:00:37 CDT 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 [facility] CPT-48207 Level 3 Est. Patient 16:07:10 CDT Robbie Busby MD [facility] CPT-04498 Level 4 Est. Patient 11:56:16 CDT Erin Garsia [facility] CPT-16085 Level 3 Est. Patient 17:48:02 CDT Robbie Busby MD [facility] CPT-00286 Level 4 Est. Patient 12:00:49 IDEA MAN Rober Rodríguez [facility] CPT-43340 Level 3 Est. Patient 09:16:37 CDT Robbie Busby MD [facility]-28511 Level 3 Est. Patient 19:38:43 CDT Robbie Busby MD [facility] CPT-25475 Level 3 Est. Patient 11:53:38 CDT Robbie Busby MD [facility] CPT-01212 Level 4 Est. Patient 12:52:22 CDT Rober Rodríguez [facility] CPT-88149 Level 4 Est. Patient 22:55:17 CDT Robbie Busby MD [facility] CPT-02223 Level 3 Est. Patient 12:38:24 CDT Desmond Diaz DO [facility] CPT-64406 Level 4 Est. Patient 11:25:03 IDEA MAN Robbie Busby MD [facility] CPT-61207 Level 4 Est. Patient 14:50:10 CDT Robbie Busby MD [facility] CPT-41560 Level 4 Est. Patient 23:30:43 CDT Robbie Busby MD [facility] CPT-85446 Level 4 Est. Patient 10:30:43 CDT Robbie Busby MD [facility] CPT-94869 Level 3 Est. Patient 17:08:12 CDT Alex ALVAREZ [facility] CPT-25195 Level 4 Est. Patient 17:51:38 CDT Robbie Busby MD [facility] CPT-14380 Level 4 Est. Patient 14:00:21 CDT Robbie Busby MD [facility] CPT-16857 Level 4 Est. Patient 12:46:48 CDT Robbie Busby MD [facility] CPT-16735 Level 4 Est. Patient 13:34:33 CDT Robbie Busby MD [facility] CPT-83396 Level 4 Est. Patient 16:58:28 CDT Robbie Busby MD [facility] CPT-79680 Level 3 Est. Patient 19:36:53 CDT Alex Shaw [facility] CPT-55181 Level 3 Est. Patient 12:58:15 CDT Robbie Busby MD [facility] Procedures Code Procedure Name Date Entry Date Standard Description CPT-J1071 Depo Testosterone 200mg 15:33:58 IDEA MAN CPT-54738 Abx/Therapy Injection 15:33:58 IDEA MAN CPT-J1071 Depo Testosterone 200mg 09:38:36 IDEA MAN CPT-80119 Abx/Therapy Injection 09:38:36 IDEA MAN CPT-J1071 Depo Testosterone 200mg 10:22:56 IDEA MAN CPT-35310 Abx/Therapy Injection 10:22:56 IDEA MAN CPT-J1071 Depo Testosterone 200mg 15:40:23 CDT CPT-64346 Abx/Therapy Injection 15:40:23 CDT CPT-J1071 Depo Testosterone 200mg 14:20:43 CDT CPT-69811 Abx/Therapy Injection 14:20:43 CDT CPT-J1071 Depo Testosterone 200mg 14:17:22 CDT CPT-29216 Abx/Therapy Injection 14:17:22 CDT CPT-J1071 Depo Testosterone 200mg 09:03:53 CDT CPT-64072 Abx/Therapy Injection 09:03:53 CDT CPT-G0439 [facility] Annual Wellness Exam 16:47:44 CDT CPT-J1071 Depo Testosterone 200mg 09:06:28 CDT CPT-11780 Abx/Therapy Injection 09:06:28 CDT CPT-J1071 Depo Testosterone 200mg 08:30:01 CDT CPT-79210 Abx/Therapy Injection 08:30:01 CDT CPT-J1071 Depo Testosterone 200mg 08:24:00 CDT CPT-68356 Abx/Therapy Injection 08:24:00 CDT CPT-84485 Venipuncture Draw Fee 14:39:06 CDT CPT-12202 Ribs unilateral 2V - XRAY USE ONLY 12:10:11 CDT CPT-21497 First Vx - Ix admin for Medicare patients 16:32:53 CDT CPT-30147 Boostrix Intramuscular Suspension 5-2.5-18.5 16:32:53 CDT CPT-29110 TB Skin Test 11:42:28 CDT CPT-83782 Tdap 7yrs or > 11:42:28 CDT CPT-J0696 Rocephin 1000 mg (Ceftriaxone) 17:43:43 IDEA MAN CPT-J1040 Depo Medrol 80 mg (Methyl Prednisolone Acetate) 17:43: 43 IDEA MAN CPT-J1100 Decadron 8mg (Dexamethasone) 17:43:42 IDEA MAN CPT-59979 Abx/Therapy Injection 17:43:42 IDEA MAN CPT-81244 Abx/Therapy Injection 17:43:42 IDEA MAN CPT-J1040 Depo Medrol 80 mg (Methyl Prednisolone Acetate) 09:43: 34 IDEA MAN CPT-J1100 Decadron 8mg (Dexamethasone) 09:43:34 IDEA MAN CPT-J0696 Rocephin 1gm Inj Solr 09:43:34 IDEA MAN CPT-75729 Wound Culture - LAB USE ONLY 14:00:21 CDT CPT-I/D I/D Abscess 09:16:37 CDT CPT-12972 Venipuncture Draw Fee 15:20:23 CDT CPT-26324 Microalbumin - LAB USE ONLY 16:02:19 CDT CPT-75104 CBC - LAB USE ONLY 16:02:19 CDT CPT-20792 Venipuncture Draw Fee 16:02:19 CDT CPT-G0438 Initial Annual Wellness Exam 08:10:28 CDT CPT-23767 Venipuncture Draw Fee 13:07:17 CDT CPT-G0008 Administration of Influenza Virus Vaccine 16:09:59 CDT CPT-24985 Fluzone Quadrivalent Intramuscular Suspension 0.5 ML 16: 09:59 CDT CPT-72144 Spec Collection and Handling Fee 15:05:50 CDT
--- OUTSIDE RECORDS SUMMARY | 2018-04-18 10:19 | XMS REPORT | Clinical Summary ---
Author Author Admin, [employer] Organization [employer] Address Unknown Phone Unavailable Allergies, Adverse Reactions, [...] involving unspecified site GERD 530.81 Active Robbie Bubsy MD Esophageal reflux Bronchitis, acute 466.0 Active [...] MD Cellulitis and abscess of unspecified sites Medication List Medication Instructions Start Date Stop Date Generic Name NDC Status Provider Patient Instruction BACTRIM DS 800-160 MG TAB 1 tab by mouth twice daily TRIMETHOPRIM-SULFAMETHOXAZOLE 00949046865 No Longer Active Robbie Busby MD Active SPIRONOLACTONE 25 MG TAB 4 tablets by mouth daily SPIRONOLACTONE 36387085619 Active Robbie Busby MD Active HYDRALAZINE HCL 50 MG ORAL TABS TWO BY MOUTH THREE TIMES DAILY HYDRALAZINE HCL 71835295768 No Longer Active 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 THERAPY AIDE Active HYDROCODONE-ACETAMINOPHEN 5-325 MG TABS 1 tab by mouth BID prn back pain 2013 HYDROCODONE-ACETAMINOPHEN 62620789743 No Longer Active 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 THERAPY AIDE Active HYDROCHLOROTHIAZIDE TABS Take one by mouth daily HYDROCHLOROTHIAZIDE TABS 52353228569 No Longer Active 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 THERAPY AIDE Active LAMISIL 125 MG ORAL PACK 1 TAB PO DAILY TERBINAFINE HCL 43880608501 No Longer Active 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 THERAPY AIDE Active TRILEPTAL 150 MG ORAL TABS 1 TAB PO Q HS OXCARBAZEPINE 48394895300 No Longer Active 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 THERAPY AIDE Active BETADINE 10 % EXT SOLN 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 POVIDONE-IODINE 68600025763 No Longer Active 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 THERAPY AIDE Active NYSTATIN 249249 UNIT/ML M/T SUSP 5mL po QID x 10 days NYSTATIN 37758302409 No Longer Active Erin Garsia APRN Active PREDNISONE 20 MG TAB 1 tablet twice daily for 2 days, then 1 tablet once daily for 2 days PREDNISONE 53040979857 No Longer Active Robbie Busby MD Active CEFDINIR 300 MG ORAL CAPS Take 1 cap po bid x 10 days CEFDINIR 66555105139 No Longer Active Robbie Busby MD Active AMLODIPINE BESYLATE 10 MG TABS 1 tablet by mouth daily AMLODIPINE BESYLATE 71124590428 Active Robbie Busby MD Active CARVEDILOL 25 MG TABS 1 & 1/2 TAB po BID CARVEDILOL 44914976595 Active Erin Garsia APRN Active VITAMIN D3 95562 UNIT CAPS 2 CAPS PO WEEKLY CHOLECALCIFEROL 83732218183 Active Erin Garsia APRN Active NEXIUM 40 MG CPDR 1 cap by mouth daily ESOMEPRAZOLE MAGNESIUM 23816107344 Active Robbie Busby MD Active PROTONIX 40 MG SOLR 1 po qday for acid reflux PANTOPRAZOLE SODIUM 08167766029 No Longer Active Galileonila Negro Active KEFLEX 500 MG CAP 1 po TID x 10 days CEPHALEXIN 77514893748 No Longer Active Robbie Busby MD Active FIORICET 50-300-40 MG ORAL CAPS take 1 tab po qday prn migraines. SAYADPRREK-VCFB-[id number] 94927152603 Active Robbie Busby MD Active TOPIRAMATE 50 MG ORAL TABS take 1 tab po BID for migraines. TOPIRAMATE 91764744815 Active Robbie Busby MD Active MECLIZINE HCL 25 MG TAB one 4 times a day as needed for dizziness MECLIZINE HCL 73472214358 Active Robbie Busby MD Active TEMAZEPAM 15 MG ORAL CAPS 1 TAB PO Q HS TEMAZEPAM 66172964550 Active Robbie Busby MD Active ALPRAZOLAM 2 MG ORAL TABS 1 TAB PO BID ALPRAZOLAM 95214148086 Active Robbie Busby MD Active FENOFIBRATE 145 MG TABS Take one by mouth daily FENOFIBRATE 36756816500 No Longer Active Robbie Busby MD Active SPIRONOLACTONE 50 MG TABS 1 tablet by mouth twice a day SPIRONOLACTONE 10581813817 No Longer Active Robbie Busby MD Active HYDRALAZINE HCL 25 MG TABS 1 tablet by mouth tid for hypertension HYDRALAZINE HCL 91300159592 No Longer Active Robbie Busby MD Active VIIBRYD 40 MG TABS take 1 tab po qday for depression. VILAZODONE HCL 68059989712 No Longer Active Robbie Busby MD Active TERBINAFINE HCL 250 MG TABS 1 tab po qday for foot infection 2014 TERBINAFINE HCL 63072544281 No Longer Active Robbie Busby MD Active GABAPENTIN 300 MG CAPS 1 po q hs for nerve pain GABAPENTIN 55312343467 Active Robbie Busby MD Active FLONASE 50 MCG/ACT SUSP 1 spray each nostril twice daily for allergies and runny nose FLUTICASONE PROPIONATE 81463144912 Active Robbie Busby MD Active CHERATUSSIN AC 100-10 MG/5ML ORAL SOLN 7.5 mL PO q 4-6 hrs PRN cough GUAIFENESIN-CODEINE 25217671042 No Longer Active Robbie Busby MD Active AZITHROMYCIN 250 MG ORAL TABS 2 tablets PO today---then, 1 tablet PO daily x 4 more days (and 1 optional refill) AZITHROMYCIN 12543597897 No Longer Active Robbie Busby MD Active CLONIDINE HCL 0.2 MG ORAL TABS 1 TAB BY MOUTH EVERY 8 HOURS CLONIDINE HCL 89864038905 Active Robbie Busby MD Active NORVASC 10 MG TAB 1 tablet by mouth daily AMLODIPINE BESYLATE 51821724947 No Longer Active Alex ALVAREZ Active IMDUR 60 MG TAB CR take 1 tab po qday for blood pressure ISOSORBIDE MONONITRATE Active Robbie Busby MD Active ISOSORBIDE DINITRATE 30 MG TABS Take one by mouth daily ISOSORBIDE DINITRATE 32662091103 No Longer Active Robbie Busby MD Active VIIBRYD 40 MG TABS 1 TA B PO DAILY VILAZODONE HCL 33077994738 Active Robbie Busby MD Active LORATADINE 10 MG TABS 1 tablet by mouth daily for congestion and allergies. LORATADINE 64479737894 Active Robbie Busby MD Active ZITHROMAX 250 MG TAB 2 po today, then 1 po q days 2-5 AZITHROMYCIN 39704611307 No Longer Active Robbie Busby MD Active PTBGDNIF-DHT-3 0.3 MG/24HR PTWK apply 2 patches q week for HTN CLONIDINE HCL 71558986168 Active Robbie Busby MD Active NITROSTAT 0.4 MG SUBL PRN NITROGLYCERIN 26639495742 Active Robbie Busby MD Active DOXAZOSIN MESYLATE 4 MG TABS Take one by mouth daily DOXAZOSIN MESYLATE 30461166789 Active Erin Garsia APRN Active TOPROL XL 200 MG [id number] Take one by mouth daily METOPROLOL SUCCINATE 14353132681 Active Robbie Busby MD Active VENLAFAXINE HCL ER 150 MG [id number] Take one by mouth daily VENLAFAXINE HCL 59320640406 Active Robbie Busby MD Active LIPITOR 40 MG TABS Take one by mouth daily ATORVASTATIN CALCIUM 66570811886 Active Robbie Busby MD Active ISOSORBIDE DINITRATE 30 MG TABS Take one by mouth daily ISOSORBIDE DINITRATE 30 MG TABS 879382 ISOSORBIDE DINITRATE Inactive NORVASC 10 MG TAB 1 tablet by mouth daily NORVASC 10 MG TAB 688698 AMLODIPINE BESYLATE Inactive AZITHROMYCIN 250 MG ORAL TABS 2 tablets PO today---then, 1 tablet PO daily x 4 more days (and 1 optional refill) AZITHROMYCIN 250 MG ORAL TABS 8426025 AZITHROMYCIN Inactive CHERATUSSIN AC 100-10 MG/5ML ORAL SOLN 7.5 mL PO q 4-6 hrs PRN cough CHERATUSSIN AC 100-10 MG/5ML ORAL SOLN 993974 GUAIFENESIN- CODEINE Inactive VIIBRYD 40 MG TABS take 1 tab po qday for depression. VIIBRYD 40 MG TABS VILAZODONE HCL Inactive HYDRALAZINE HCL 25 MG TABS 1 tablet by mouth tid for hypertension HYDRALAZINE HCL 25 MG TABS 871161 HYDRALAZINE HCL Inactive SPIRONOLACTONE 50 MG TABS 1 tablet by mouth twice a day SPIRONOLACTONE 50 MG TABS 648742 SPIRONOLACTONE Inactive FENOFIBRATE 145 MG TABS Take one by mouth daily FENOFIBRATE 145 MG TABS 189644 FENOFIBRATE Inactive PROTONIX 40 MG SOLR 1 po qday for acid reflux PROTONIX 40 MG SOLR 186816 PANTOPRAZOLE SODIUM Inactive CEFDINIR 300 MG ORAL CAPS Take 1 cap po bid x 10 days CEFDINIR 300 MG ORAL CAPS 871777 CEFDINIR Inactive PREDNISONE 20 MG TAB 1 tablet twice daily for 2 days, then 1 tablet once daily for 2 days PREDNISONE 20 MG TAB 003381 PREDNISONE Inactive NYSTATIN 755514 UNIT/ML M/T SUSP 5mL po QID x 10 days NYSTATIN 548830 UNIT/ML M/T SUSP 684597 NYSTATIN Inactive BETADINE 10 % EXT SOLN 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 BETADINE 10 % EXT SOLN 3067645 POVIDONE-IODINE Inactive TRILEPTAL 150 MG ORAL TABS 1 TAB PO Q HS TRILEPTAL 150 MG ORAL TABS 674718 OXCARBAZEPINE Inactive LAMISIL 125 MG ORAL PACK 1 TAB PO DAILY LAMISIL 125 MG ORAL PACK TERBINAFINE HCL Inactive HYDROCHLOROTHIAZIDE TABS Take one by mouth daily HYDROCHLOROTHIAZIDE TABS HYDROCHLOROTHIAZIDE TABS Inactive HYDROCODONE-ACETAMINOPHEN 5-325 MG TABS 1 tab by mouth BID prn back pain 2013 HYDROCODONE-ACETAMINOPHEN 5-325 MG TABS 222166 HYDROCODONE -ACETAMINOPHEN Inactive HYDRALAZINE HCL 50 MG ORAL TABS TWO BY MOUTH THREE TIMES DAILY HYDRALAZINE HCL 50 MG ORAL TABS 126850 HYDRALAZINE HCL Inactive ZITHROMAX 250 MG TAB 2 po today, then 1 po q days 2-5 ZITHROMAX 250 MG TAB 6434149 AZITHROMYCIN Inactive TERBINAFINE HCL 250 MG TABS 1 tab po qday for foot infection 2014 TERBINAFINE HCL 250 MG TABS 360112 TERBINAFINE HCL Inactive KEFLEX 500 MG CAP 1 po TID x 10 days KEFLEX 500 MG CAP 544830 CEPHALEXIN Inactive BACTRIM DS 800-160 MG TAB 1 tab by mouth twice daily BACTRIM DS 800-160 MG TAB 275950 TRIMETHOPRIM-SULFAMETHOXAZOLE Inactive Advance Directives Directive Description Start Date DISCUSSED WITH PATIENT -- NO DECISION MADE Vital Signs Date Name Value Unit Range Description blood pressure, diastolic - 8462-4 118 mm[Hg] [...] E&M - 3141-9 207.5 [lb_av] Weight Measured Diagnostic Results Date Name [...] count 229 10^3/MM^3 10*3/mm3 142-424 Lab Report: Comp. Metabolic Panel, Uric Acid - Chemistry sodium, serum 139 mmol/L 258-640 8913/04/22 carbon dioxide, venous blood 29.4 mmol/L 21.0-32.0 [...] Lab microalbumin, urine 80 0-19 Lab Report: RapidStrep Rflx/Cx - Lab Microbial identification kit, rapid strep method Negative-Throat Culture to Follow Negative Lab Report: VITAMIN D, 25-HYDROXY/67390 - Chemistry vitamin D 25-hydroxy, serum 23 ng/mL 30-100 Encounters Code Encounter Date Provider Facility CPT-96741 Level 3 Est. Patient 09:16:37 CDT Robbie Busby MD [facility]-27982 Level 3 Est. Patient 19:38:43 CDT Robbie Busby MD [facility]-84491 Level 3 Est. Patient 11:53:38 CDT Robbie Busby MD [facility]-91239 Level 4 Est. Patient 12:52:22 CDT Rober Rodríguez APRN [facility]-22672 Level 4 Est. Patient 22:55:17 CDT Robbie Busby MD [facility]-76325 Level 3 Est. Patient 12:38:24 CDT Desmond Diaz DO [facility] CPT-21693 Level 4 Est. Patient 11:25:03 REPA[employer] Robbie Busby MD [facility] CPT-27452 Level 4 Est. Patient 14:50:10 CDT Robbie Busby MD [facility] CPT-42207 Level 4 Est. Patient 23:30:43 CDT Robbie Busby MD [facility] CPT-92426 Level 4 Est. Patient 10:30:43 CDT Robbie Busby MD [facility] CPT-59121 Level 3 Est. Patient 17:08:12 CDT Alex ALVAREZ [facility] CPT-89090 Level 4 Est. Patient 17:51:38 CDT Robbie Busby MD [facility] CPT-55884 Level 4 Est. Patient 14:00:21 CDT Robbie Busby MD [facility] CPT-85753 Level 4 Est. Patient 12:46:48 CDT Robbie Busby MD [facility] CPT-96029 Level 4 Est. Patient 13:34:33 CDT Robbie Busby MD [facility] CPT-03768 Level 4 Est. Patient 16:58:28 CDT Robbie Busby MD [facility] CPT-43144 Level 3 Est. Patient 19:36:53 CDT Alex ALVAREZ [facility] CPT-95638 Level 3 Est. Patient 12:58:15 CDT Robbie Busby MD [facility] Procedures Code Procedure Name Date Entry Date Standard Description CPT-59496 Wound Culture - LAB USE ONLY 14:00:21 CDT CPT-I/D I/D Abscess 09:16:37 CDT CPT-43584 Venipuncture Draw Fee 15:20:23 CDT CPT-27660 Microalbumin - LAB USE ONLY 16:02:19 CDT CPT-66835 CBC - LAB USE ONLY 16:02:19 CDT CPT-73103 Venipuncture Draw Fee 16:02:19 CDT CPT-G0438 Initial Annual Wellness Exam 08:10:28 CDT CPT-93494 Venipuncture Draw Fee 13:07:17 CDT CPT-G0008 Administration of Influenza Virus Vaccine 16:09:59 CDT CPT-96425 Fluzone Quadrivalent Intramuscular Suspension 0.5 ML 16: 09:59 CDT CPT-35513 Spec Collection and Handling Fee 15:05:50 CDT
--- OUTSIDE RECORDS SUMMARY | 2018-04-18 10:20 | XMS REPORT | Clinical Summary ---
Author Author Admin, [place] Organization [employer] Address Unknown Phone Unavailable Allergies, Adverse Reactions, [...] Tachycardia, unspecified Insect bite, infected 919.5 Active Rbobie Busby MD Insect bite, nonvenomous, of other, [...] spine Preventive health care V70.0 Active Gali Sruthi Routine general medical examination at a health care facility Rib pain, right sided 786.50 Active Robbie Busby MD Unspecified chest pain Vitamin D deficiency 268.9 Active Vanessa August Unspecified vitamin D deficiency Myalgias 729.1 Active Rober Rodríguez APRN Myalgia and myositis, unspecified URI 465.9 Active Rober Rodríguez APRN Acute upper respiratory infections of unspecified site Medication List Medication Instructions Start Date Stop Date Generic Name NDC Status Provider Patient Instruction DEPO-TESTOSTERONE 200 MG/ML IM SOLN 1 IM Injections every 2 weeks for low testosterone TESTOSTERONE CYPIONATE 63766863379 Active Zulema Blank LPN Active CYCLOBENZAPRINE HCL 10 MG ORAL TABS 1 po TID PRN muscle spasm/pain for 10 days CYCLOBENZAPRINE HCL 52794635267 Active JONATHAN Moncada Active GUAIFENESIN 600 MG SL34I-DVT 1 tab po q am GUAIFENESIN 31655502167 Active Rober Rodríguez TOOLMAN Active FLUTICASONE PROPIONATE 50 MCG/ACT SUSP 2 sprays per nostril bid for 1 week, then 1 spray bid FLUTICASONE PROPIONATE 14795994381 Active Jillina Frazelariana GONZALEZN Active HYDRALAZINE HCL 25 MG ORAL TABS Take 1 tab BID. HYDRALAZINE HCL 38424675943 Active Jillina Anne GONZALEZN Active VITAMIN D3 24971 UNIT ORAL TABS 2 po weekly CHOLECALCIFEROL 21723313136 Active Robbie Busby MD Active OXYCODONE HCL ER 10 MG ORAL T12A 1 tab po 3 times qd. OXYCODONE HCL 91473922883 Active Robibe Busby MD Active NITROSTAT 0.4 MG SUBL PRN NITROGLYCERIN 62417655311 No Longer Active Robbie Busby MD Active LORATADINE 10 MG TABS 1 tablet by mouth daily for congestion and allergies. LORATADINE 81440515502 No Longer Active Robbie Busby MD Active FLONASE 50 MCG/ACT SUSP 1 spray each nostril twice daily for allergies and runny nose FLUTICASONE PROPIONATE 32574470063 No Longer Active Robbie Busby MD Active FIORICET 50-300-40 MG ORAL CAPS take 1 tab po qday prn migraines. [id number] 96425120363 No Longer Active Robbie Busby MD Active VITAMIN D3 83962 UNIT CAPS 2 CAPS PO WEEKLY CHOLECALCIFEROL 84832931319 No Longer Active Robbie Busby MD Active CYCLOBENZAPRINE HCL 10 MG TABS 1 tablet by mouth three times daily as needed for muscle spasm/pain for 10 days CYCLOBENZAPRINE HCL 57980848405 No Longer Active Robbie Busby MD Active PREDNISONE 20 MG TAB take 3 tabs daily for 3 days, 2 tabs daily for 3 days, 1 tab daily for 3 days, 1/2 tab daily for 4 days PREDNISONE 01401510835 No Longer Active Erin Garsia APRN Active CLONIDINE HCL 0.2 MG ORAL TABS 1 TAB BY MOUTH EVERY 8 HOURS 12/29 CLONIDINE HCL 63135553243 No Longer Active Erin Garsia APRN Active MECLIZINE HCL 25 MG TAB one 4 times a day as needed for dizziness MECLIZINE HCL 02773199241 No Longer Active Erin Garsia APRN Active SPIRONOLACTONE 25 MG TAB 4 tablets by mouth daily SPIRONOLACTONE 44335213316 No Longer Active Erin Garsia APRN Active LEVAQUIN 500 MG TAB 1 tablet by mouth daily for 7 days LEVOFLOXACIN 78112133308 No Longer Active Erin Garsia APRN Active BACTRIM DS 800-160 MG TAB 1 tab by mouth twice daily TRIMETHOPRIM-SULFAMETHOXAZOLE 96616104230 No Longer Active Robbie Busby MD Active HYDRALAZINE HCL 50 MG ORAL TABS TWO BY MOUTH THREE TIMES DAILY HYDRALAZINE HCL 85960069273 No Longer Active 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 TOOLMAN Active HYDROCODONE-ACETAMINOPHEN 5-325 MG TABS 1 tab by mouth BID prn back pain 2013 HYDROCODONE-ACETAMINOPHEN 77385312661 No Longer Active 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 TOOLMAN Active HYDROCHLOROTHIAZIDE TABS Take one by mouth daily HYDROCHLOROTHIAZIDE TABS 21092640056 No Longer Active 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 TOOLMAN Active LAMISIL 125 MG ORAL PACK 1 TAB PO DAILY TERBINAFINE HCL 85199669317 No Longer Active 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 TOOLMAN Active TRILEPTAL 150 MG ORAL TABS 1 TAB PO Q HS OXCARBAZEPINE 21551201548 No Longer Active 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 TOOLMAN Active BETADINE 10 % EXT SOLN 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 POVIDONE-IODINE 40779329284 No Longer Active 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 TOOLMAN Active NYSTATIN 498509 UNIT/ML M/T SUSP 5mL po QID x 10 days NYSTATIN 77821364486 No Longer Active Erin Ady TOOLMAN Active PREDNISONE 20 MG TAB 1 tablet twice daily for 2 days, then 1 tablet once daily for 2 days PREDNISONE 73474352942 No Longer Active Robbie Busby MD Active CEFDINIR 300 MG ORAL CAPS Take 1 cap po bid x 10 days CEFDINIR 61697369931 No Longer Active Robbie Busby MD Active AMLODIPINE BESYLATE 10 MG TABS 1 tablet by mouth daily AMLODIPINE BESYLATE 57021527865 Active Robbie Busby MD Active CARVEDILOL 25 MG TABS 1 & 1/2 TAB po BID CARVEDILOL 46109556447 Active Robbie Busby MD Active NEXIUM 40 MG CPDR 1 cap by mouth daily ESOMEPRAZOLE MAGNESIUM 57895224497 Active Robbie Busby MD Active PROTONIX 40 MG SOLR 1 po qday for acid reflux PANTOPRAZOLE SODIUM 82476767592 No Longer Active Gali Raida Active KEFLEX 500 MG CAP 1 po TID x 10 days CEPHALEXIN 44822411792 No Longer Active Robbie Busby MD Active TOPIRAMATE 50 MG ORAL TABS take 1 tab po BID for migraines. TOPIRAMATE 23391339446 Active Robbie Busby MD Active TEMAZEPAM 15 MG ORAL CAPS 1 TAB PO Q HS TEMAZEPAM 15185857930 Active Robbie Busby MD Active ALPRAZOLAM 2 MG ORAL TABS 1 TAB PO BID ALPRAZOLAM 02011398501 Active Robbie Busby MD Active FENOFIBRATE 145 MG TABS Take one by mouth daily FENOFIBRATE 88810952625 No Longer Active Robbie Busby MD Active SPIRONOLACTONE 50 MG TABS 1 tablet by mouth twice a day SPIRONOLACTONE 52408774405 No Longer Active Robbie Busby MD Active HYDRALAZINE HCL 25 MG TABS 1 tablet by mouth tid for hypertension HYDRALAZINE HCL 09309766986 No Longer Active Robbie Busby MD Active VIIBRYD 40 MG TABS take 1 tab po qday for depression. VILAZODONE HCL 22151449430 No Longer Active Robbie Busby MD Active TERBINAFINE HCL 250 MG TABS 1 tab po qday for foot infection 2014 TERBINAFINE HCL 77108829668 No Longer Active Robbie Busby MD Active GABAPENTIN 300 MG CAPS 1 po q hs for nerve pain GABAPENTIN 05864387223 Active Robbie Busby MD Active CHERATUSSIN AC 100-10 MG/5ML ORAL SOLN 7.5 mL PO q 4-6 hrs PRN cough GUAIFENESIN-CODEINE 03035004030 No Longer Active Robbie Busby MD Active AZITHROMYCIN 250 MG ORAL TABS 2 tablets PO today---then, 1 tablet PO daily x 4 more days (and 1 optional refill) AZITHROMYCIN 08607089539 No Longer Active Robbie Busby MD Active NORVASC 10 MG TAB 1 tablet by mouth daily AMLODIPINE BESYLATE 92239988386 No Longer Active Alex ALVAREZ Active IMDUR 60 MG TAB CR take 1 tab po qday for blood pressure ISOSORBIDE MONONITRATE Active Robbie Busby MD Active ISOSORBIDE DINITRATE 30 MG TABS Take one by mouth daily ISOSORBIDE DINITRATE 08649472162 No Longer Active Robbie Busby MD Active VIIBRYD 40 MG TABS 1 TA B PO DAILY VILAZODONE HCL 77860621121 Active Robbie Busby MD Active ZITHROMAX 250 MG TAB 2 po today, then 1 po q days 2-5 AZITHROMYCIN 29251037115 No Longer Active Robbie Busby MD Active [id number]-8 0.3 MG/24HR PTWK apply 2 patches q week for HTN CLONIDINE HCL 25243914933 Active Robbie Busby MD Active DOXAZOSIN MESYLATE 4 MG TABS Take one by mouth daily DOXAZOSIN MESYLATE 77223161854 Active Robbie Busby MD Active TOPROL XL 200 MG [id number]-UFM Take one by mouth daily METOPROLOL SUCCINATE 63455035070 Active Robbie Busby MD Active VENLAFAXINE HCL ER 150 MG MU07I-XZA Take one by mouth daily VENLAFAXINE HCL 94603310578 Active Robbie Busby MD Active LIPITOR 40 MG TABS Take one by mouth daily ATORVASTATIN CALCIUM 07972332883 Active Robbie Busby MD Active ISOSORBIDE DINITRATE 30 MG TABS Take one by mouth daily ISOSORBIDE DINITRATE 30 MG TABS 098468 ISOSORBIDE DINITRATE Inactive NORVASC 10 MG TAB 1 tablet by mouth daily NORVASC 10 MG TAB 850838 AMLODIPINE BESYLATE Inactive AZITHROMYCIN 250 MG ORAL TABS 2 tablets PO today---then, 1 tablet PO daily x 4 more days (and 1 optional refill) AZITHROMYCIN 250 MG ORAL TABS 7455371 AZITHROMYCIN Inactive CHERATUSSIN AC 100-10 MG/5ML ORAL SOLN 7.5 mL PO q 4-6 hrs PRN cough CHERATUSSIN AC 100-10 MG/5ML ORAL SOLN 595257 GUAIFENESIN- CODEINE Inactive VIIBRYD 40 MG TABS take 1 tab po qday for depression. VIIBRYD 40 MG TABS VILAZODONE HCL Inactive HYDRALAZINE HCL 25 MG TABS 1 tablet by mouth tid for hypertension HYDRALAZINE HCL 25 MG TABS 033019 HYDRALAZINE HCL Inactive SPIRONOLACTONE 50 MG TABS 1 tablet by mouth twice a day SPIRONOLACTONE 50 MG TABS 185953 SPIRONOLACTONE Inactive FENOFIBRATE 145 MG TABS Take one by mouth daily FENOFIBRATE 145 MG TABS 460889 FENOFIBRATE Inactive PROTONIX 40 MG SOLR 1 po qday for acid reflux PROTONIX 40 MG SOLR 007056 PANTOPRAZOLE SODIUM Inactive CEFDINIR 300 MG ORAL CAPS Take 1 cap po bid x 10 days CEFDINIR 300 MG ORAL CAPS 462690 CEFDINIR Inactive PREDNISONE 20 MG TAB 1 tablet twice daily for 2 days, then 1 tablet once daily for 2 days PREDNISONE 20 MG TAB 796261 PREDNISONE Inactive NYSTATIN 830935 UNIT/ML M/T SUSP 5mL po QID x 10 days NYSTATIN 338224 UNIT/ML M/T SUSP 632889 NYSTATIN Inactive BETADINE 10 % EXT SOLN 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 BETADINE 10 % EXT SOLN 8993237 POVIDONE-IODINE Inactive TRILEPTAL 150 MG ORAL TABS 1 TAB PO Q HS TRILEPTAL 150 MG ORAL TABS 151068 OXCARBAZEPINE Inactive LAMISIL 125 MG ORAL PACK 1 TAB PO DAILY LAMISIL 125 MG ORAL PACK TERBINAFINE HCL Inactive HYDROCHLOROTHIAZIDE TABS Take one by mouth daily HYDROCHLOROTHIAZIDE TABS HYDROCHLOROTHIAZIDE TABS Inactive HYDROCODONE-ACETAMINOPHEN 5-325 MG TABS 1 tab by mouth BID prn back pain 2013 HYDROCODONE-ACETAMINOPHEN 5-325 MG TABS 200688 HYDROCODONE -ACETAMINOPHEN Inactive HYDRALAZINE HCL 50 MG ORAL TABS TWO BY MOUTH THREE TIMES DAILY HYDRALAZINE HCL 50 MG ORAL TABS 712801 HYDRALAZINE HCL Inactive LEVAQUIN 500 MG TAB 1 tablet by mouth daily for 7 days LEVAQUIN 500 MG TAB 420762 LEVOFLOXACIN Inactive SPIRONOLACTONE 25 MG TAB 4 tablets by mouth daily SPIRONOLACTONE 25 MG TAB 429935 SPIRONOLACTONE Inactive MECLIZINE HCL 25 MG TAB one 4 times a day as needed for dizziness MECLIZINE HCL 25 MG TAB 139556 MECLIZINE HCL Inactive CLONIDINE HCL 0.2 MG ORAL TABS 1 TAB BY MOUTH EVERY 8 HOURS 12/29 CLONIDINE HCL 0.2 MG ORAL TABS 295887 CLONIDINE HCL Inactive CYCLOBENZAPRINE HCL 10 MG TABS 1 tablet by mouth three times daily as needed for muscle spasm/pain for 10 days CYCLOBENZAPRINE HCL 10 MG TABS 770862 CYCLOBENZAPRINE HCL Inactive VITAMIN D3 79320 UNIT CAPS 2 CAPS PO WEEKLY VITAMIN D3 72390 UNIT CAPS CHOLECALCIFEROL Inactive FIORICET 50-300-40 MG ORAL CAPS take 1 tab po qday prn migraines. FIORICET 50-300-40 MG ORAL CAPS 540583 [id number] Inactive FLONASE 50 MCG/ACT SUSP 1 spray each nostril twice daily for allergies and runny nose FLONASE 50 MCG/ACT SUSP 3076297 FLUTICASONE PROPIONATE Inactive LORATADINE 10 MG TABS 1 tablet by mouth daily for congestion and allergies. LORATADINE 10 MG TABS 717918 LORATADINE Inactive NITROSTAT 0.4 MG SUBL PRN NITROSTAT 0.4 MG SUBL 428631 NITROGLYCERIN Inactive ZITHROMAX 250 MG TAB 2 po today, then 1 po q days 2-5 ZITHROMAX 250 MG TAB 2852427 AZITHROMYCIN Inactive TERBINAFINE HCL 250 MG TABS 1 tab po qday for foot infection 2014 TERBINAFINE HCL 250 MG TABS 893415 TERBINAFINE HCL Inactive KEFLEX 500 MG CAP 1 po TID x 10 days KEFLEX 500 MG CAP 840334 CEPHALEXIN Inactive BACTRIM DS 800-160 MG TAB 1 tab by mouth twice daily BACTRIM DS 800-160 MG TAB 010550 TRIMETHOPRIM-SULFAMETHOXAZOLE Inactive PREDNISONE 20 MG TAB take 3 tabs daily for 3 days, 2 tabs daily for 3 days, 1 tab daily for 3 days, 1/2 tab daily for 4 days PREDNISONE 20 MG TAB 192551 PREDNISONE Inactive Advance Directives Directive Description Start Date DISCUSSED WITH PATIENT -- NO DECISION MADE Vital Signs Date Name Value Unit Range Description blood pressure, diastolic 92 mm[Hg] BP del [...] temperature weight E&M 213 [lb_av] Weight Measured blood pressure, diastolic 118 mm[Hg] BP [place] blood pressure, systolic 194 mm[Hg] BP sys pulse rate E&M 74 /min Heart rate temperature E&M 97.3 [degF] Body temperature weight E&M 213.5 [lb_av] Weight Measured blood pressure, diastolic 111 mm[Hg] BP [place] blood pressure, systolic 200 mm[Hg] BP sys pulse rate E&M 72 /min Heart rate temperature E&M 97.7 [degF] Body temperature weight E&M 213.5 [lb_av] Weight Measured blood pressure, diastolic 120 mm[Hg] BP [place] blood pressure, systolic 194 mm[Hg] BP sys pulse rate E&M 100 /min Heart rate temperature E&M 97.4 [degF] Body temperature weight E&M 213 [lb_av] [...] count 229 10^3/MM^3 10*3/mm3 142-424 Lab Report: CBC W/DIFF, Comp. Metabolic Panel, CKI, UADIP W/MICRO, AUTO - Chemistry sodium, serum 142 mmol/L 256-634 0398/07/17 carbon dioxide, venous blood 28.2 mmol/L 21.0-32.0 [...] % 11.0-15.0 platelet count 185 THOUSAND/UL 10*3/mm3 827-148 3574/04/14 mean platelet volume 10.9 fL 7.5-12.5 Lab Report: LIPID PANEL, TSH/899, T4, FREE/866 - Chemistry cholesterol, serum 220 mg/dL 770-404 6326/04/14 HDL cholesterol, serum 30 mg/dL > OR=40 [...] 1.80 ng/mL 0.00-4.00 Lab Report: VITAMIN D, 25-HYDROXY/00408 - Chemistry vitamin D 25-hydroxy, serum 25 ng/mL 30-100 Office Visit: Confusion, dizziness after fall - Basic LDL target level 130 mg/dL Office Visit: Confusion, dizziness after fall - Chemistry HDL cholesterol, serum, target level 40 mg/dL triglyceride, target level 150 mg/dL cholesterol, target level 200 mg/dL Encounters Code Encounter Date Provider Facility CPT-09100 Level 4 Est. Patient 15:18:19 CDT Robbie Busby MD [facility] CPT-06544 Level 3 Est. Patient 09:00:37 CDT Rober Rodríguez [facility] CPT-71663 Level 3 Est. Patient 16:07:10 CDT Robbie Busby MD [facility] CPT-21981 Level 4 Est. Patient 11:56:16 CDT Erin Garsia [facility] CPT-97218 Level 3 Est. Patient 17:48:02 CDT Robbie Busby MD [facility] CPT-68632 Level 4 Est. Patient 12:00:49 [employer] Rober Rodríguez [facility] CPT-56684 Level 3 Est. Patient 09:16:37 CDT Robbie Busby MD [facility] CPT-20056 Level 3 Est. Patient 19:38:43 CDT Robbie Busby MD [facility] CPT-30869 Level 3 Est. Patient 11:53:38 CDT Robbie Busby MD [facility] CPT-68245 Level 4 Est. Patient 12:52:22 CDT Rober Rodríguez [facility] CPT-07385 Level 4 Est. Patient 22:55:17 CDT Robbie Busby MD [facility] CPT-31013 Level 3 Est. Patient 12:38:24 CDT Desmond Diaz DO [facility] CPT-88703 Level 4 Est. Patient 11:25:03 [employer] Robbie Busby MD [facility] CPT-50410 Level 4 Est. Patient 14:50:10 CDT Robbie Busby MD [facility] CPT-53898 Level 4 Est. Patient 23:30:43 CDT Robbie Busby MD [facility] CPT-12418 Level 4 Est. Patient 10:30:43 CDT Robbie Busby MD [facility] CPT-22239 Level 3 Est. Patient 17:08:12 CDT Alex Shaw [facility] CPT-56391 Level 4 Est. Patient 17:51:38 CDT Robbie Busby MD [facility] CPT-79261 Level 4 Est. Patient 14:00:21 CDT Robbie Busby MD [facility] CPT-30301 Level 4 Est. Patient 12:46:48 CDT Robbie Busby MD [facility] CPT-71018 Level 4 Est. Patient 13:34:33 CDT Robbie Busby MD [facility] CPT-09751 Level 4 Est. Patient 16:58:28 CDT Robbie Busby MD [facility] CPT-90904 Level 3 Est. Patient 19:36:53 CDT Alex [facility] CPT-29197 Level 3 Est. Patient 12:58:15 CDT Robbie Busby MD [facility] Procedures Code Procedure Name Date Entry Date Standard Description CPT-J1071 Depo Testosterone 200mg 08:30:01 CDT CPT-95463 Abx/Therapy Injection 08:30:01 CDT CPT-J1071 Depo Testosterone 200mg 08:24:00 CDT CPT-82736 Abx/Therapy Injection 08:24:00 CDT CPT-11956 Venipuncture Draw Fee 14:39:06 CDT CPT-84506 Ribs unilateral 2V - XRAY USE ONLY 12:10:11 CDT CPT-34400 First Vx - Ix admin for Medicare patients 16:32:53 CDT CPT-21571 Boostrix Intramuscular Suspension 5-2.5-18.5 16:32:53 CDT CPT-73215 TB Skin Test 11:42:28 CDT CPT-48507 Tdap 7yrs or > 11:42:28 CDT CPT-J0696 Rocephin 1000 mg (Ceftriaxone) 17:43:43 [employer] CPT-J1040 Depo Medrol 80 mg (Methyl Prednisolone Acetate) 17:43: 43 [employer] CPT-J1100 Decadron 8mg (Dexamethasone) 17:43:42 [employer] CPT-11686 Abx/Therapy Injection 17:43:42 [employer] CPT-42853 Abx/Therapy Injection 17:43:42 [employer] CPT-J1040 Depo Medrol 80 mg (Methyl Prednisolone Acetate) 09:43: 34 [employer] CPT-J1100 Decadron 8mg (Dexamethasone) 09:43:34 [employer] CPT-J0696 Rocephin 1gm Inj Solr 09:43:34 [employer] CPT-53151 Wound Culture - LAB USE ONLY 14:00:21 CDT CPT-I/D I/D Abscess 09:16:37 CDT CPT-61661 Venipuncture Draw Fee 15:20:23 CDT CPT-40523 Microalbumin - LAB USE ONLY 16:02:19 CDT CPT-00832 CBC - LAB USE ONLY 16:02:19 CDT CPT-03067 Venipuncture Draw Fee 16:02:19 CDT CPT-G0438 Initial Annual Wellness Exam 08:10:28 CDT CPT-50909 Venipuncture Draw Fee 13:07:17 CDT CPT-G0008 Administration of Influenza Virus Vaccine 16:09:59 CDT CPT-25332 Fluzone Quadrivalent Intramuscular Suspension 0.5 ML 16: 09:59 CDT CPT-04494 Spec Collection and Handling Fee 15:05:50 CDT
--- OUTSIDE RECORDS SUMMARY | 2018-04-18 10:21 | XMS REPORT | Clinical Summary ---
Author Author Admin, AKUA Organization [facility] Address Unknown Phone Unavailable Allergies, Adverse Reactions, Alerts Allergy Name Reaction Description Start Date Severity Status Provider No Known Allergies Daiananicole Malhotraon Conditions or Problems Problem Name Problem Code [...] Robbie Busby MD Allergic rhinitis, cause unspecified Medication List Medication Instructions Start Date Stop Date Generic Name NDC Status Provider Patient Instruction FLONASE 50 MCG/ACT SUSP 1 spray each nostril twice daily for allergies and runny nose FLUTICASONE PROPIONATE 39955802143 Active Robbie Busby MD Active CHERATUSSIN AC 100-10 MG/5ML ORAL SOLN 7.5 mL PO q 4-6 hrs PRN cough GUAIFENESIN-CODEINE 65448761183 No Longer Active Robbie Busby MD Active AZITHROMYCIN 250 MG ORAL TABS 2 tablets PO today---then, 1 tablet PO daily x 4 more days (and 1 optional refill) AZITHROMYCIN 45853695388 No Longer Active Robbie Busby MD Active CLONIDINE HCL 0.2 MG ORAL TABS 1 TAB BY MOUTH EVERY 8 HOURS CLONIDINE HCL 78359842082 Active Robbie Busby MD Active HYDROCHLOROTHIAZIDE TABS Take one by mouth daily HYDROCHLOROTHIAZIDE TABS 85958711018 Active Alex ALVAREZ Active NORVASC 10 MG TAB 1 tablet by mouth daily AMLODIPINE BESYLATE 13407293655 No Longer Active Alex ALVAREZ Active PROTONIX 40 MG SOLR 1 po qday for acid reflux PANTOPRAZOLE SODIUM 52156741644 Active Robbie Busby MD Active IMDUR 60 MG TAB CR take 1 tab po qday for blood pressure ISOSORBIDE MONONITRATE Active Robbie Busby MD Active ISOSORBIDE DINITRATE 30 MG TABS Take one by mouth daily ISOSORBIDE DINITRATE 81927365194 No Longer Active Robbie Busby MD Active VIIBRYD 40 MG TABS take 1 tab po qday for depression. VILAZODONE HCL 55160783882 Active Robbie Busby MD Active VIIBRYD 40 MG TABS 1 TA B PO DAILY VILAZODONE HCL 48088311959 Active Robbie Busby MD Active LORATADINE 10 MG TABS 1 tablet by mouth daily for congestion and allergies. LORATADINE 99293823705 Active Robbie Busby MD Active ZITHROMAX 250 MG TAB 2 po today, then 1 po q days 2-5 AZITHROMYCIN 03592600877 No Longer Active Robbie Busby MD Active HYDROCODONE-ACETAMINOPHEN 5-325 MG TABS 1 tab by mouth BID prn back pain 2013 HYDROCODONE-ACETAMINOPHEN 46532219994 Active Robbie Busby MD Active HYDRALAZINE HCL 50 MG TABS take 1 tab po QID for high blood pressure HYDRALAZINE HCL 28780412720 Active Robbie Busby MD Active BIVXHAZY-NSX-1 0.3 MG/24HR PTWK apply 2 patches q week for HTN CLONIDINE HCL 48655514631 Active Robbie Busby MD Active FENOFIBRATE 145 MG TABS Take one by mouth daily FENOFIBRATE 59576263493 Active Robbie Busby MD Active NITROSTAT 0.4 MG SUBL PRN NITROGLYCERIN 70754633680 Active Robbie Busby MD Active DOXAZOSIN MESYLATE 4 MG TABS Take one by mouth daily DOXAZOSIN MESYLATE 52702040228 Active Robbie Busby MD Active HYDRALAZINE HCL 25 MG TABS 1 tablet by mouth tid for hypertension HYDRALAZINE HCL 25824845779 Active Robbie Busby MD Active TOPROL XL 200 MG [id number] Take one by mouth daily METOPROLOL SUCCINATE 43772194597 Active Robbie Busby MD Active SPIRONOLACTONE 50 MG TABS 1 tablet by mouth twice a day SPIRONOLACTONE 57482873508 Active Robbie Busby MD Active VENLAFAXINE HCL ER 150 MG [id number]-OLD Take one by mouth daily VENLAFAXINE HCL 42149568574 Active Robbie Busby MD Active LIPITOR 40 MG TABS Take one by mouth daily ATORVASTATIN CALCIUM 17291082757 Active Robbie Busby MD Active ISOSORBIDE DINITRATE 30 MG TABS Take one by mouth daily ISOSORBIDE DINITRATE 30 MG TABS 279056 ISOSORBIDE DINITRATE Inactive NORVASC 10 MG TAB 1 tablet by mouth daily NORVASC 10 MG TAB 899951 AMLODIPINE BESYLATE Inactive AZITHROMYCIN 250 MG ORAL TABS 2 tablets PO today---then, 1 tablet PO daily x 4 more days (and 1 optional refill) AZITHROMYCIN 250 MG ORAL TABS 4743749 AZITHROMYCIN Inactive CHERATUSSIN AC 100-10 MG/5ML ORAL SOLN 7.5 mL PO q 4-6 hrs PRN cough CHERATUSSIN AC 100-10 MG/5ML ORAL SOLN 740680 GUAIFENESIN- CODEINE Inactive ZITHROMAX 250 MG TAB 2 po today, then 1 po q days 2-5 ZITHROMAX 250 MG TAB 8968344 AZITHROMYCIN Inactive Vital Signs Date Name Value Unit Range Description blood pressure, diastolic - 8462-4 119 mm[Hg] [...] Weight Measured blood pressure, diastolic - 8462-4 102 mm[Hg] BP [place] blood pressure, systolic - 8480-6 155 mm[Hg] BP sys height E&M - 8302-2 64 [in_us] Bdy height pulse rate E&M - 8867-4 69 /min Heart rate temperature E&M 97.4 [degF] Body temperature weight E&M - 3141-9 202 [lb_av] Weight Measured blood pressure, diastolic - 8462-4 78 mm[Hg] BP [place] blood pressure, systolic - 8480-6 134 mm[Hg] BP sys pulse rate E&M - 8867-4 64 /min Heart rate temperature E&M 98 [degF] Body temperature weight E&M - 3141-9 204 [lb_av] Weight Measured blood pressure, diastolic - 8462-4 112 mm[Hg] BP [place] blood pressure, systolic - 8480-6 164 mm[Hg] BP sys pulse rate E&M - 8867-4 114 /min Heart rate temperature E&M 98.2 [degF] Body temperature weight E&M - 3141-9 199 [lb_av] Weight Measured blood pressure, diastolic - 8462-4 106 mm[Hg] BP [place] blood pressure, systolic - 8480-6 210 mm[Hg] BP sys height E&M - 8302-2 64 [in_us] Bdy height temperature E&M 96.9 [degF] Body temperature weight E&M - 3141-9 199 [lb_av] Weight Measured blood pressure, diastolic - 8462-4 97 mm[Hg] BP [place] blood pressure, systolic - 8480-6 148 mm[Hg] BP sys height E&M - 8302-2 64 [in_us] Bdy height pulse rate E&M - 8867-4 66 /min Heart rate temperature E&M 98.0 [degF] Body temperature weight E&M - 3141-9 203 [lb_av] Weight Measured Diagnostic Results Date Name Value Unit Range Description Chart Maintenance: Outside labs entered on flowsheet - Chemistry sodium, serum 140 mmol/L potassium, serum 3.5 mmol/L blood glucose 98 mg/dL creatinine, serum 1.49 mg/dL Chart Maintenance: Outside labs entered on flowsheet - Hematology leukocyte count, blood 8.9 10*3/mm3 hemoglobin, blood 14.0 g/dL platelet count 285 10*3/mm3 Lab Report: Basic Metabolic Panel, UADIP W/MICRO, AUTO - Chemistry calcium, serum 9.8 mg/dL 8.5-10.1 urea nitrogen, blood 16 mg/dL 7-18 creatinine, serum 1.70 mg/dL 0.60-1.30 protein, total urine random 2+ mg/dL Negative RBC, urine, dipstick 2+ Negative blood glucose 80 mg/dL 65-110 carbon dioxide, venous blood 28.1 mmol/L 21.0-32.0 chloride, serum 105 mmol/L 98-107 potassium, serum 3.9 mmol/L 3.5-5.2 sodium, serum 144 mmol/L 136-145 Lab Report: Basic Metabolic Panel, UADIP W/MICRO, AUTO - Urinalysis urobilinogen, urine, semiquantitative (dipstick) 0.2 Normal leukocyte esterase, urine, by dipstick Negative Negative nitrite, urine, semiquantitative Negative Negative glucose, urine, semiquantitative Negative Negative ketones, urine, by test strip Trace Negative bilirubin, urine 1+ Negative urine color Yellow Colorless;Lightyellow;Straw;Yellow appearance, urine Clear Clear specific gravity, urine >=1.030 1.000-1.030 pH, urine, semiquantitative 5.5 5.0-8.5 Lab Report: CBC, Comp. Metabolic Panel - Chemistry urea nitrogen, blood 11 mg/dL 7-18 creatinine, serum 1.70 mg/dL 0.60-1.30 alanine aminotransferase (SGPT), serum 30 U/L 12-78 aspartate aminotransferase (SGOT), serum 23 U/L 15-37 calcium, serum 9.5 mg/dL 8.5-10.1 bilirubin, serum, total 0.80 mg/dL 0.00-1.00 sodium, serum 141 mmol/L 905-853 2959/12/05 potassium, serum 4.0 mmol/L 3.5-5.2 chloride, serum 104 mmol/L 98-107 carbon dioxide, venous blood 33.1 mmol/L 21.0-32.0 blood glucose 123 mg/dL 65-110 Lab Report: CBC, Comp. Metabolic Panel - Hematology leukocyte count, blood 8.9 10^3/MM^3 10*3/mm3 4.6-10.2 erythrocyte (RBC) count 4.80 10^6/MM^3 10*6/mm3 4.69-6.13 hemoglobin, blood 14.9 g/dL 13.5-17.5 hematocrit, blood 44.5 % 41.0-53.0 mean corpuscular volume, RBC 93 fL 80-97 mean corpuscular hemoglobin, RBC 30.9 pg 27.0-31.2 mean corpuscular hemoglobin concentration, RBC 33.4 G/DL % 31.8- 35.4 red blood cell distribution width 15.0 % 11.6-14.8 platelet count 253 10^3/MM^3 10*3/mm3 142-424 Lab Report: MICROALBUMIN - Chemistry albumin/creatinine ratio, urine 30 - 300 mg/g mg/g{creat} 0-29 Lab Report: MICROALBUMIN - Lab microalbumin, urine 150 0-19 Office Visit: F/U Blood Pressure - Chemistry cholesterol, target level 200 mg/dL LDL target level 160 mg/dL HDL cholesterol, serum, target level 40 mg/dL triglyceride, target level 150 mg/dL Encounters Code Encounter Date Provider Facility CPT-57817 Level 4 Est. Patient 10:30:43 CDT Robbie Busby MD [facility] CPT-09214 Level 3 Est. Patient 17:08:12 CDT Alex Shaw [facility] CPT-08970 Level 4 Est. Patient 17:51:38 CDT Robbie Busby MD [facility] CPT-14433 Level 4 Est. Patient 14:00:21 CDT Robbie Busby MD [facility] CPT-45570 Level 4 Est. Patient 12:46:48 CDT Robbie Busby MD [facility] CPT-45423 Level 4 Est. Patient 13:34:33 CDT Robbie Busby MD [facility] CPT-37363 Level 4 Est. Patient 16:58:28 CDT Robbie Busby MD [facility] CPT-65177 Level 3 Est. Patient 19:36:53 CDT Alex Shaw [facility] CPT-41288 Level 3 Est. Patient 12:58:15 CDT Robbie Busby MD [facility] Procedures Code Procedure Name Date Entry Date Standard Description CPT-G0008 Administration of Influenza Virus Vaccine 16:09:59 CDT CPT-67772 Fluzone Quadrivalent Intramuscular Suspension 0.5 ML 16: 09:59 CDT CPT-67350 Spec Collection and Handling Fee 15:05:50 CDT
--- OUTSIDE RECORDS SUMMARY | 2018-04-18 10:21 | XMS REPORT | Clinical Summary ---
Author Author Admin, [facility] Organization [facility] Address Unknown Phone Unavailable Allergies, Adverse Reactions, Alerts Allergy Name Reaction Description Start Date Severity Status Provider No Known Allergies JONATHAN Purdy Conditions or Problems Problem Name Problem Code [...] 462 Active Desmond Diaz DO Acute pharyngitis Medication List Medication Instructions Start Date Stop Date Generic Name NDC Status Provider Patient Instruction PREDNISONE 20 MG TAB 1 tablet twice daily for 2 days, then 1 tablet once daily for 2 days PREDNISONE 90476658904 Active Desmond Diaz DO Active NEXIUM 40 MG CPDR 1 cap by mouth daily ESOMEPRAZOLE MAGNESIUM 03545857677 Active Gali Raida Active PROTONIX 40 MG SOLR 1 po qday for acid reflux PANTOPRAZOLE SODIUM 11346401452 No Longer Active Gali Rajuan carlos Active BETADINE 10 % EXT SOLN 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 POVIDONE-IODINE 43045820482 Active Robbie Busby MD Active KEFLEX 500 MG CAP 1 po TID x 10 days CEPHALEXIN 96915495851 No Longer Active Robbie Busby MD Active FIORICET 50-300-40 MG ORAL CAPS take 1 tab po qday prn migraines. [id number] 19360155079 Active Robbie Busby MD Active TOPIRAMATE 50 MG ORAL TABS take 1 tab po BID for migraines. TOPIRAMATE 60029946186 Active Robbie Busby MD Active HYDRALAZINE HCL 50 MG ORAL TABS TWO BY MOUTH THREE TIMES DAILY HYDRALAZINE HCL 06215491778 Active Robbie Busby MD Active MECLIZINE HCL 25 MG TAB one 4 times a day as needed for dizziness MECLIZINE HCL 72228572826 Active Robbie Busby MD Active TRILEPTAL 150 MG ORAL TABS 1 TAB PO Q HS OXCARBAZEPINE 80675744111 Active Robbie Busby MD Active TEMAZEPAM 15 MG ORAL CAPS 1 TAB PO Q HS TEMAZEPAM 82076719897 Active Robbie Busby MD Active ALPRAZOLAM 2 MG ORAL TABS 1 TAB PO BID ALPRAZOLAM 84780713153 Active Robbie Busby MD Active FENOFIBRATE 145 MG TABS Take one by mouth daily FENOFIBRATE 23730498325 No Longer Active Robbie Busby MD Active LAMISIL 125 MG ORAL PACK 1 TAB PO DAILY TERBINAFINE HCL 88550655333 Active Robbie Busby MD Active SPIRONOLACTONE 50 MG TABS 1 tablet by mouth twice a day SPIRONOLACTONE 40203467845 No Longer Active Robbie Busby MD Active HYDRALAZINE HCL 25 MG TABS 1 tablet by mouth tid for hypertension HYDRALAZINE HCL 37611590875 No Longer Active Robbie Busby MD Active VIIBRYD 40 MG TABS take 1 tab po qday for depression. VILAZODONE HCL 82826501870 No Longer Active Robbie Busby MD Active TERBINAFINE HCL 250 MG TABS 1 tab po qday for foot infection 2014 TERBINAFINE HCL 47564073730 No Longer Active Robbie Busby MD Active GABAPENTIN 300 MG CAPS 1 po q hs for nerve pain GABAPENTIN 05362924488 Active Erin Garsia APRN Active FLONASE 50 MCG/ACT SUSP 1 spray each nostril twice daily for allergies and runny nose FLUTICASONE PROPIONATE 10926107378 Active Robbie Busby MD Active CHERATUSSIN AC 100-10 MG/5ML ORAL SOLN 7.5 mL PO q 4-6 hrs PRN cough GUAIFENESIN-CODEINE 65611600154 No Longer Active Robbie Busby MD Active AZITHROMYCIN 250 MG ORAL TABS 2 tablets PO today---then, 1 tablet PO daily x 4 more days (and 1 optional refill) AZITHROMYCIN 13209844702 No Longer Active Robbie Busby MD Active CLONIDINE HCL 0.2 MG ORAL TABS 1 TAB BY MOUTH EVERY 8 HOURS CLONIDINE HCL 43720939141 Active Robbie Busby MD Active HYDROCHLOROTHIAZIDE TABS Take one by mouth daily HYDROCHLOROTHIAZIDE TABS 58970580390 Active Alex ALVAREZ Active NORVASC 10 MG TAB 1 tablet by mouth daily AMLODIPINE BESYLATE 65935294875 No Longer Active Alex ALVAREZ Active IMDUR 60 MG TAB CR take 1 tab po qday for blood pressure ISOSORBIDE MONONITRATE Active Robbie Busby MD Active ISOSORBIDE DINITRATE 30 MG TABS Take one by mouth daily ISOSORBIDE DINITRATE 47764738835 No Longer Active Robbie Busby MD Active VIIBRYD 40 MG TABS 1 TA B PO DAILY VILAZODONE HCL 63125266991 Active Robbie Busby MD Active LORATADINE 10 MG TABS 1 tablet by mouth daily for congestion and allergies. LORATADINE 30706341579 Active Robbie Busby MD Active ZITHROMAX 250 MG TAB 2 po today, then 1 po q days 2-5 AZITHROMYCIN 57607822871 No Longer Active Robbie Busby MD Active HYDROCODONE-ACETAMINOPHEN 5-325 MG TABS 1 tab by mouth BID prn back pain 2013 HYDROCODONE-ACETAMINOPHEN 82833253332 Active Robbie Busby MD Active [id number]-HPS-2 0.3 MG/24HR PTWK apply 2 patches q week for HTN CLONIDINE HCL 77227279988 Active Robbie Busby MD Active NITROSTAT 0.4 MG SUBL PRN NITROGLYCERIN 87669956302 Active Robbie Busby MD Active DOXAZOSIN MESYLATE 4 MG TABS Take one by mouth daily DOXAZOSIN MESYLATE 14907677797 Active Robbie Busby MD Active TOPROL XL 200 MG [id number] Take one by mouth daily METOPROLOL SUCCINATE 63894308687 Active Robbie Busby MD Active VENLAFAXINE HCL ER 150 MG [id number] Take one by mouth daily VENLAFAXINE HCL 84390506413 Active Robbie Busby MD Active LIPITOR 40 MG TABS Take one by mouth daily ATORVASTATIN CALCIUM 03932949541 Active Robbie Busby MD Active ISOSORBIDE DINITRATE 30 MG TABS Take one by mouth daily ISOSORBIDE DINITRATE 30 MG TABS 523232 ISOSORBIDE DINITRATE Inactive NORVASC 10 MG TAB 1 tablet by mouth daily NORVASC 10 MG TAB 686894 AMLODIPINE BESYLATE Inactive AZITHROMYCIN 250 MG ORAL TABS 2 tablets PO today---then, 1 tablet PO daily x 4 more days (and 1 optional refill) AZITHROMYCIN 250 MG ORAL TABS 9352118 AZITHROMYCIN Inactive CHERATUSSIN AC 100-10 MG/5ML ORAL SOLN 7.5 mL PO q 4-6 hrs PRN cough CHERATUSSIN AC 100-10 MG/5ML ORAL SOLN 020156 GUAIFENESIN- CODEINE Inactive VIIBRYD 40 MG TABS take 1 tab po qday for depression. VIIBRYD 40 MG TABS VILAZODONE HCL Inactive HYDRALAZINE HCL 25 MG TABS 1 tablet by mouth tid for hypertension HYDRALAZINE HCL 25 MG TABS 362397 HYDRALAZINE HCL Inactive SPIRONOLACTONE 50 MG TABS 1 tablet by mouth twice a day SPIRONOLACTONE 50 MG TABS 444993 SPIRONOLACTONE Inactive FENOFIBRATE 145 MG TABS Take one by mouth daily FENOFIBRATE 145 MG TABS 483175 FENOFIBRATE Inactive PROTONIX 40 MG SOLR 1 po qday for acid reflux PROTONIX 40 MG SOLR PANTOPRAZOLE SODIUM Inactive ZITHROMAX 250 MG TAB 2 po today, then 1 po q days 2-5 ZITHROMAX 250 MG TAB 3762931 AZITHROMYCIN Inactive TERBINAFINE HCL 250 MG TABS 1 tab po qday for foot infection 2014 TERBINAFINE HCL 250 MG TABS 418093 TERBINAFINE HCL Inactive KEFLEX 500 MG CAP 1 po TID x 10 days KEFLEX 500 MG CAP 662487 CEPHALEXIN Inactive Vital Signs Date Name Value Unit Range Description blood pressure, diastolic - 8462-4 108 mm[Hg] [...] Weight Measured blood pressure, diastolic - 8462-4 107 mm[Hg] [...] E&M - 3141-9 208.5 [lb_av] Weight Measured Diagnostic Results Date Name Value Unit Range Description Lab Report: Creatinine - Chemistry creatinine, serum 1.40 mg/dL 0.60-1.30 Lab Report: Lipid Panel, HEPATIC PANEL - Chemistry cholesterol, serum 211 mg/dL 521-351 2432/08/31 triglyceride, serum, fasting 429 mg/dL 30-200 HDL cholesterol, serum 25 mg/dL 32-96 LDL cholesterol, serum 100 mg/dL 0-130 aspartate aminotransferase (SGOT), serum 19 U/L 15-37 alanine aminotransferase (SGPT), serum 32 U/L 12-78 bilirubin, serum, total 0.70 mg/dL 0.00-1.00 Lab Report: Prostatic Specific Ag - Chemistry prostate specific antigen 1.31 ng/mL 0.00-4.00 Lab Report: RapidStrep Rflx/Cx - Lab Microbial identification kit, rapid strep method Negative-Throat Culture to Follow Negative Encounters Code Encounter Date Provider Facility [facility]-[id number] Level 3 Est. Patient 12:38:24 CDT Desmond Diaz DO [facility] CPT-29362 Level 4 Est. Patient 11:25:03 [employer] Robbie Busby MD [facility]-11948 Level 4 Est. Patient 14:50:10 CDT Robbie Busby MD [facility]-14427 Level 4 Est. Patient 23:30:43 CDT Robbie Busby MD [facility]-91145 Level 4 Est. Patient 10:30:43 CDT Robbie Busby MD [facility]-29988 Level 3 Est. Patient 17:08:12 CDT Alex Shaw [facility] CPT-04958 Level 4 Est. Patient 17:51:38 CDT Robbie Busby MD [facility]-85999 Level 4 Est. Patient 14:00:21 CDT Robbie Busby MD [facility]-42019 Level 4 Est. Patient 12:46:48 CDT Robbie Busby MD [facility]-64146 Level 4 Est. Patient 13:34:33 CDT Robbie Busby MD [facility]-06120 Level 4 Est. Patient 16:58:28 CDT Robbie Busby MD [facility]-71377 Level 3 Est. Patient 19:36:53 CDT Alex Shaw [facility]-68704 Level 3 Est. Patient 12:58:15 CDT Robbie Busby MD [facility] Procedures Code Procedure Name Date Entry Date Standard Description CPT-G0008 Administration of Influenza Virus Vaccine 16:09:59 CDT CPT-28082 Fluzone Quadrivalent Intramuscular Suspension 0.5 ML 16: 09:59 CDT CPT-46994 Spec Collection and Handling Fee 15:05:50 CDT
--- OUTSIDE RECORDS SUMMARY | 2018-04-18 10:22 | XMS REPORT | Clinical Summary ---
Author Author Admin, AKUA Organization [facility] Address Unknown Phone Unavailable Allergies, Adverse [...] Busby MD Dysthymic disorder Sinusitis 461.9 Active Robibe Busby MD Acute sinusitis, unspecified Low back pain, acute 724.2 Active Robbie Busby MD Lumbago Low back pain, chronic 724.2 Active Robbie Busby MD Lumbago Degenerative arthritis 715.90 Active Robbie Busby MD Osteoarthrosis, unspecified whether generalized or localized, involving unspecified site GERD 530.81 Active Robbie Busby MD Esophageal reflux Medication List Medication Instructions Start Date Stop Date Generic Name NDC Status Provider Patient Instruction PROTONIX 40 MG SOLR 1 po qday for acid reflux PANTOPRAZOLE SODIUM 59121024849 Active Robbie Busby MD Active NORVASC 10 MG TAB 1 tablet by mouth daily AMLODIPINE BESYLATE 99075743705 Active Robbie Busby MD Active IMDUR 60 MG TAB CR take 1 tab po qday for blood pressure ISOSORBIDE MONONITRATE Active Robbie Busby MD Active ISOSORBIDE DINITRATE 30 MG TABS Take one by mouth daily ISOSORBIDE DINITRATE 99593203227 No Longer Active Robbie Busby MD Active VIIBRYD 40 MG TABS take 1 tab po qday for depression. VILAZODONE HCL 41716333241 Active Robbie Busby MD Active VIIBRYD 40 MG TABS 1 TA B PO DAILY VILAZODONE HCL 90449561467 Active Robbie Busby MD Active LORATADINE 10 MG TABS 1 tablet by mouth daily for congestion and allergies. LORATADINE 30536701851 Active Robbie Busby MD Active ZITHROMAX 250 MG TAB 2 po today, then 1 po q days 2-5 AZITHROMYCIN 36667224856 No Longer Active Robbie Busby MD Active HYDROCODONE-ACETAMINOPHEN 5-325 MG TABS 1 tab by mouth BID prn back pain 2013 HYDROCODONE-ACETAMINOPHEN 81895564302 Active Robbie Busby MD Active HYDRALAZINE HCL 50 MG TABS take 1 tab po QID for high blood pressure HYDRALAZINE HCL 57779479803 Active Robbie Busby MD Active VJABKXLU-QFR-3 0.3 MG/24HR PTWK apply 2 patches q week for HTN CLONIDINE HCL 80531218056 Active Robbie Busby MD Active FENOFIBRATE 145 MG TABS Take one by mouth daily FENOFIBRATE 20740491705 Active Robbie Busby MD Active NITROSTAT 0.4 MG SUBL PRN NITROGLYCERIN 72559556478 Active Robbie Busby MD Active DOXAZOSIN MESYLATE 4 MG TABS Take one by mouth daily DOXAZOSIN MESYLATE 49467371315 Active Robbie Busby MD Active HYDRALAZINE HCL 25 MG TABS 1 tablet by mouth tid for hypertension HYDRALAZINE HCL 18912286025 Active Robbie Busby MD Active TOPROL XL 200 MG [id number]-ZKY Take one by mouth daily METOPROLOL SUCCINATE 50160985733 Active Robbie Busby MD Active SPIRONOLACTONE 50 MG TABS 1 tablet by mouth twice a day SPIRONOLACTONE 47538260791 Active Robbie Busby MD Active VENLAFAXINE HCL ER 150 MG [id number] Take one by mouth daily VENLAFAXINE HCL 36502776422 Active Robbie Busby MD Active LIPITOR 40 MG TABS Take one by mouth daily ATORVASTATIN CALCIUM 36267176152 Active Robbie Busby MD Active ISOSORBIDE DINITRATE 30 MG TABS Take one by mouth daily ISOSORBIDE DINITRATE 30 MG TABS 911891 ISOSORBIDE DINITRATE Inactive ZITHROMAX 250 MG TAB 2 po today, then 1 po q days 2-5 ZITHROMAX 250 MG TAB 0933835 AZITHROMYCIN Inactive Vital Signs Date Name Value Unit Range Description blood pressure, diastolic - 8462-4 128 mm[Hg] [...] Metabolic Panel, UADIP W/MICRO, AUTO - Chemistry protein, total urine random 2+ mg/dL Negative sodium, serum 144 mmol/L 147-110 9409/07/07 potassium, serum 3.9 mmol/L 3.5-5.2 chloride, serum 105 mmol/L 98-107 carbon dioxide, venous blood 28.1 mmol/L 21.0-32.0 blood glucose 80 mg/dL 65-110 calcium, serum 9.8 mg/dL 8.5-10.1 urea nitrogen, blood 16 mg/dL 7-18 creatinine, serum 1.70 mg/dL 0.60-1.30 RBC, urine, dipstick 2+ Negative Lab Report: Basic Metabolic Panel, UADIP W/MICRO, AUTO - Urinalysis urobilinogen, urine, semiquantitative (dipstick) 0.2 Normal leukocyte esterase, urine, by dipstick Negative Negative nitrite, urine, semiquantitative Negative Negative urine color Yellow Colorless;Lightyellow;Straw;Yellow appearance, urine Clear Clear specific gravity, urine >=1.030 1.000-1.030 pH, urine, semiquantitative 5.5 5.0-8.5 glucose, urine, semiquantitative Negative Negative ketones, urine, by test strip Trace Negative bilirubin, urine 1+ Negative Lab Report: CBC, Comp. Metabolic Panel - Chemistry sodium, serum 141 mmol/L 342-426 4250/12/05 potassium, serum 4.0 mmol/L 3.5-5.2 chloride, serum [...] mg/dL Encounters Code Encounter Date Provider Facility CPT-21013 Level 4 Est. Patient 17:51:38 CDT Robbie Busby MD [facility] CPT-10501 Level 4 Est. Patient 14:00:21 CDT Robbie Busby MD [facility] CPT-16391 Level 4 Est. Patient 12:46:48 CDT Robbie Busby MD [facility] CPT-88160 Level 4 Est. Patient 13:34:33 CDT Robbie Busby MD [facility] CPT-98576 Level 4 Est. Patient 16:58:28 CDT Robbie Busby MD [facility] CPT-74350 Level 3 Est. Patient 19:36:53 CDT Alex ALVAREZ [facility] CPT-08813 Level 3 Est. Patient 12:58:15 CDT Robbie Busby MD [facility] Procedures Code Procedure Name Date Entry Date Standard Description CPT-G0008 Administration of Influenza Virus Vaccine 16:09:59 CDT CPT-50529 Fluzone Quadrivalent Intramuscular Suspension 0.5 ML 16: 09:59 CDT CPT-47407 Spec Collection and Handling Fee 15:05:50 CDT
--- OUTSIDE RECORDS SUMMARY | 2018-04-18 10:22 | XMS REPORT | Clinical Summary ---
Author Author Admin, AKUA Organization [employer] Address Unknown Phone Unavailable Allergies, Adverse Reactions, Alerts Allergy Name Reaction Description Start Date Severity Status Provider No Known Allergies Gali Negro Conditions or Problems Problem Name Problem Code [...] of status migrainosus BPH 600.00 Active Robbie Bubsy MD Hypertrophy (benign) of prostate without urinary [...] Robbie Busby MD Pain in thoracic spine Medication List Medication Instructions Start Date Stop Date Generic Name NDC Status Provider Patient Instruction CYCLOBENZAPRINE HCL 10 MG TABS 1 tablet by mouth three times daily as needed for muscle spasm/pain for 10 days CYCLOBENZAPRINE HCL 56298168911 Active Erin Garsia APRN Active PREDNISONE 20 MG TAB take 3 tabs daily for 3 days, 2 tabs daily for 3 days, 1 tab daily for 3 days, 1/2 tab daily for 4 days PREDNISONE 21270677477 No Longer Active Erin Garsia APRN Active CLONIDINE HCL 0.2 MG ORAL TABS 1 TAB BY MOUTH EVERY 8 HOURS 12/29 CLONIDINE HCL 02458699727 No Longer Active Erin Garsia APRN Active MECLIZINE HCL 25 MG TAB one 4 times a day as needed for dizziness MECLIZINE HCL 57183367707 No Longer Active Erin Garsia APRN Active SPIRONOLACTONE 25 MG TAB 4 tablets by mouth daily SPIRONOLACTONE 21214717634 No Longer Active Erin Garsia APRN Active LEVAQUIN 500 MG TAB 1 tablet by mouth daily for 7 days LEVOFLOXACIN 05438408761 No Longer Active Erin Garsia APRN Active BACTRIM DS 800-160 MG TAB 1 tab by mouth twice daily TRIMETHOPRIM-SULFAMETHOXAZOLE 17109192202 No Longer Active Robbie Busby MD Active HYDRALAZINE HCL 50 MG ORAL TABS TWO BY MOUTH THREE TIMES DAILY HYDRALAZINE HCL 90677534612 No Longer Active 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 GRANT WRITER Active HYDROCODONE-ACETAMINOPHEN 5-325 MG TABS 1 tab by mouth BID prn back pain 2013 HYDROCODONE-ACETAMINOPHEN 93827814715 No Longer Active 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 GRANT WRITER Active HYDROCHLOROTHIAZIDE TABS Take one by mouth daily HYDROCHLOROTHIAZIDE TABS 73612329468 No Longer Active 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 GRANT WRITER Active LAMISIL 125 MG ORAL PACK 1 TAB PO DAILY TERBINAFINE HCL 72740238459 No Longer Active 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 GRANT WRITER Active TRILEPTAL 150 MG ORAL TABS 1 TAB PO Q HS OXCARBAZEPINE 04795509657 No Longer Active 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 GRANT WRITER Active BETADINE 10 % EXT SOLN 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 POVIDONE-IODINE 47885878061 No Longer Active 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 GRANT WRITER Active NYSTATIN 994225 UNIT/ML M/T SUSP 5mL po QID x 10 days NYSTATIN 27751477313 No Longer Active Erin Garsia APRN Active PREDNISONE 20 MG TAB 1 tablet twice daily for 2 days, then 1 tablet once daily for 2 days PREDNISONE 00564050941 No Longer Active Robbie Busby MD Active CEFDINIR 300 MG ORAL CAPS Take 1 cap po bid x 10 days CEFDINIR 29091228647 No Longer Active Robbie Busby MD Active AMLODIPINE BESYLATE 10 MG TABS 1 tablet by mouth daily AMLODIPINE BESYLATE 65597000757 Active Robbie Busby MD Active CARVEDILOL 25 MG TABS 1 & 1/2 TAB po BID CARVEDILOL 18725767437 Active Robbie Busby MD Active VITAMIN D3 77396 UNIT CAPS 2 CAPS PO WEEKLY CHOLECALCIFEROL 67425940439 Active Erin Garsia APRN Active NEXIUM 40 MG CPDR 1 cap by mouth daily ESOMEPRAZOLE MAGNESIUM 35446183444 Active Robbie Busby MD Active PROTONIX 40 MG SOLR 1 po qday for acid reflux PANTOPRAZOLE SODIUM 51178253237 No Longer Active Gali Negro Active KEFLEX 500 MG CAP 1 po TID x 10 days CEPHALEXIN 99651729772 No Longer Active Robbie Busby MD Active FIORICET 50-300-40 MG ORAL CAPS take 1 tab po qday prn migraines. SPGLHSIARL-OAME-UJFXIJUT 55331152232 Active Robbie Busby MD Active TOPIRAMATE 50 MG ORAL TABS take 1 tab po BID for migraines. TOPIRAMATE 26658897525 Active Robbie Busby MD Active TEMAZEPAM 15 MG ORAL CAPS 1 TAB PO Q HS TEMAZEPAM 43049125142 Active Robbie Busby MD Active ALPRAZOLAM 2 MG ORAL TABS 1 TAB PO BID ALPRAZOLAM 05372448210 Active Robbie Busby MD Active FENOFIBRATE 145 MG TABS Take one by mouth daily FENOFIBRATE 35705464617 No Longer Active Robbie Busby MD Active SPIRONOLACTONE 50 MG TABS 1 tablet by mouth twice a day SPIRONOLACTONE 17824636733 No Longer Active Robbie uBsby MD Active HYDRALAZINE HCL 25 MG TABS 1 tablet by mouth tid for hypertension HYDRALAZINE HCL 81581185884 No Longer Active Robbie Busby MD Active VIIBRYD 40 MG TABS take 1 tab po qday for depression. VILAZODONE HCL 28649767470 No Longer Active Robbie Busby MD Active TERBINAFINE HCL 250 MG TABS 1 tab po qday for foot infection 2014 TERBINAFINE HCL 75414765949 No Longer Active Robbie Busby MD Active GABAPENTIN 300 MG CAPS 1 po q hs for nerve pain GABAPENTIN 11887426477 Active Robbie Busby MD Active FLONASE 50 MCG/ACT SUSP 1 spray each nostril twice daily for allergies and runny nose FLUTICASONE PROPIONATE 58001462796 Active Robbie Busby MD Active CHERATUSSIN AC 100-10 MG/5ML ORAL SOLN 7.5 mL PO q 4-6 hrs PRN cough GUAIFENESIN-CODEINE 13577186985 No Longer Active Robbie Busby MD Active AZITHROMYCIN 250 MG ORAL TABS 2 tablets PO today---then, 1 tablet PO daily x 4 more days (and 1 optional refill) AZITHROMYCIN 35756103826 No Longer Active Robbie Busby MD Active NORVASC 10 MG TAB 1 tablet by mouth daily AMLODIPINE BESYLATE 95562684143 No Longer Active Alex ALVAREZ Active IMDUR 60 MG TAB CR take 1 tab po qday for blood pressure ISOSORBIDE MONONITRATE Active Robbie Busby MD Active ISOSORBIDE DINITRATE 30 MG TABS Take one by mouth daily ISOSORBIDE DINITRATE 89048288774 No Longer Active Robbie Busby MD Active VIIBRYD 40 MG TABS 1 TA B PO DAILY VILAZODONE HCL 74448044002 Active Robbie Busby MD Active LORATADINE 10 MG TABS 1 tablet by mouth daily for congestion and allergies. LORATADINE 25035828400 Active Robbie Busby MD Active ZITHROMAX 250 MG TAB 2 po today, then 1 po q days 2-5 AZITHROMYCIN 73226691289 No Longer Active Robbie Busby MD Active TFODGVZJ-QHA-1 0.3 MG/24HR PTWK apply 2 patches q week for HTN CLONIDINE HCL 77709012708 Active Robbie Busby MD Active NITROSTAT 0.4 MG SUBL PRN NITROGLYCERIN 32537320379 Active Robbie Busby MD Active DOXAZOSIN MESYLATE 4 MG TABS Take one by mouth daily DOXAZOSIN MESYLATE 72747548188 Active Erin Garsia [employer] WRITER Active TOPROL XL 200 MG [id number] Take one by mouth daily METOPROLOL SUCCINATE 63269655283 Active Robbie Busby MD Active VENLAFAXINE HCL ER 150 MG [id number] Take one by mouth daily VENLAFAXINE HCL 08397054683 Active Robbie Busby MD Active LIPITOR 40 MG TABS Take one by mouth daily ATORVASTATIN CALCIUM 04056181251 Active Robbie Busby MD Active ISOSORBIDE DINITRATE 30 MG TABS Take one by mouth daily ISOSORBIDE DINITRATE 30 MG TABS 336364 ISOSORBIDE DINITRATE Inactive NORVASC 10 MG TAB 1 tablet by mouth daily NORVASC 10 MG TAB 547887 AMLODIPINE BESYLATE Inactive AZITHROMYCIN 250 MG ORAL TABS 2 tablets PO today---then, 1 tablet PO daily x 4 more days (and 1 optional refill) AZITHROMYCIN 250 MG ORAL TABS 9502460 AZITHROMYCIN Inactive CHERATUSSIN AC 100-10 MG/5ML ORAL SOLN 7.5 mL PO q 4-6 hrs PRN cough CHERATUSSIN AC 100-10 MG/5ML ORAL SOLN 543094 GUAIFENESIN- CODEINE Inactive VIIBRYD 40 MG TABS take 1 tab po qday for depression. VIIBRYD 40 MG TABS VILAZODONE HCL Inactive HYDRALAZINE HCL 25 MG TABS 1 tablet by mouth tid for hypertension HYDRALAZINE HCL 25 MG TABS 671104 HYDRALAZINE HCL Inactive SPIRONOLACTONE 50 MG TABS 1 tablet by mouth twice a day SPIRONOLACTONE 50 MG TABS 559809 SPIRONOLACTONE Inactive FENOFIBRATE 145 MG TABS Take one by mouth daily FENOFIBRATE 145 MG TABS 811335 FENOFIBRATE Inactive PROTONIX 40 MG SOLR 1 po qday for acid reflux PROTONIX 40 MG SOLR 938386 PANTOPRAZOLE SODIUM Inactive CEFDINIR 300 MG ORAL CAPS Take 1 cap po bid x 10 days CEFDINIR 300 MG ORAL CAPS 580485 CEFDINIR Inactive PREDNISONE 20 MG TAB 1 tablet twice daily for 2 days, then 1 tablet once daily for 2 days PREDNISONE 20 MG TAB 842501 PREDNISONE Inactive NYSTATIN 143374 UNIT/ML M/T SUSP 5mL po QID x 10 days NYSTATIN 646561 UNIT/ML M/T SUSP 641159 NYSTATIN Inactive BETADINE 10 % EXT SOLN 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 BETADINE 10 % EXT SOLN 4865202 POVIDONE-IODINE Inactive TRILEPTAL 150 MG ORAL TABS 1 TAB PO Q HS TRILEPTAL 150 MG ORAL TABS 843243 OXCARBAZEPINE Inactive LAMISIL 125 MG ORAL PACK 1 TAB PO DAILY LAMISIL 125 MG ORAL PACK TERBINAFINE HCL Inactive HYDROCHLOROTHIAZIDE TABS Take one by mouth daily HYDROCHLOROTHIAZIDE TABS HYDROCHLOROTHIAZIDE TABS Inactive HYDROCODONE-ACETAMINOPHEN 5-325 MG TABS 1 tab by mouth BID prn back pain 2013 HYDROCODONE-ACETAMINOPHEN 5-325 MG TABS 101609 HYDROCODONE -ACETAMINOPHEN Inactive HYDRALAZINE HCL 50 MG ORAL TABS TWO BY MOUTH THREE TIMES DAILY HYDRALAZINE HCL 50 MG ORAL TABS 538901 HYDRALAZINE HCL Inactive LEVAQUIN 500 MG TAB 1 tablet by mouth daily for 7 days LEVAQUIN 500 MG TAB 724659 LEVOFLOXACIN Inactive SPIRONOLACTONE 25 MG TAB 4 tablets by mouth daily SPIRONOLACTONE 25 MG TAB 514102 SPIRONOLACTONE Inactive MECLIZINE HCL 25 MG TAB one 4 times a day as needed for dizziness MECLIZINE HCL 25 MG TAB 658898 MECLIZINE HCL Inactive CLONIDINE HCL 0.2 MG ORAL TABS 1 TAB BY MOUTH EVERY 8 HOURS 12/29 CLONIDINE HCL 0.2 MG ORAL TABS 887460 CLONIDINE HCL Inactive ZITHROMAX 250 MG TAB 2 po today, then 1 po q days 2-5 ZITHROMAX 250 MG TAB 1169031 AZITHROMYCIN Inactive TERBINAFINE HCL 250 MG TABS 1 tab po qday for foot infection 2014 TERBINAFINE HCL 250 MG TABS 386266 TERBINAFINE HCL Inactive KEFLEX 500 MG CAP 1 po TID x 10 days KEFLEX 500 MG CAP 207378 CEPHALEXIN Inactive BACTRIM DS 800-160 MG TAB 1 tab by mouth twice daily BACTRIM DS 800-160 MG TAB 115883 TRIMETHOPRIM-SULFAMETHOXAZOLE Inactive PREDNISONE 20 MG TAB take 3 tabs daily for 3 days, 2 tabs daily for 3 days, 1 tab daily for 3 days, 1/2 tab daily for 4 days PREDNISONE 20 MG TAB 476325 PREDNISONE Inactive Advance Directives Directive Description Start [...] % 11.0-15.0 platelet count 185 THOUSAND/UL 10*3/mm3 784-838 4586/04/14 mean platelet volume 10.9 fL 7.5-12.5 Lab Report: HEPATITIS B SAB/Immune Status, RUBELLA IGG AB(Immune Status) - Serology rubella antibody, serum, IgG 2.06 Lab Report: LIPID PANEL, TSH/899, T4, FREE/866 - Chemistry cholesterol, serum 220 mg/dL 522-844 8784/04/14 HDL cholesterol, serum 30 mg/dL > OR=40 triglyceride, serum, fasting 466 mg/dL <150 LDL cholesterol, serum SEE NOTE mg/dL (calc) mg/dL <130 cholesterol/HDL ratio, serum 7.3 (calc) < OR=5.0 Lab Report: MICROALB/CREAT W/RATIO - Chemistry albumin/creatinine ratio, urine < 30 mg/g mg/g{creat} 0-29 Lab Report: MICROALB/CREAT W/RATIO - Lab microalbumin, urine 80 0-19 Lab Report: VITAMIN D, 25-HYDROXY/20671 - Chemistry vitamin D 25-hydroxy, serum 23 ng/mL 30-100 Encounters Code Encounter Date Provider Facility CPT-96469 Level 3 Est. Patient 17:48:02 CDT Robbie Busby MD [facility]-85530 Level 4 Est. 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 CPT-28398 Level 3 Est. Patient 09:16:37 CDT Robbie Bubsy MD [facility]-81883 Level 3 Est. Patient 19:38:43 CDT Robbie Busby MD [facility]-56281 Level 3 Est. Patient 11:53:38 CDT Robbie Busby MD [facility]-20513 Level 4 Est. Patient 12:52:22 CDT Rober Rodríguez [facility]-99993 Level 4 Est. Patient 22:55:17 CDT Robbie Busby MD [facility] CPT-58783 Level 3 Est. Patient 12:38:24 CDT Desmond Diaz DO [facility] CPT-63282 Level 4 Est. Patient 11:25:03 CRYSTAL GRINDER Robbie Busby MD [facility] CPT-84605 Level 4 Est. Patient 14:50:10 CDT Robbie Busby MD [facility] CPT-01208 Level 4 Est. Patient 23:30:43 CDT Robbie Busby MD [facility] CPT-84778 Level 4 Est. Patient 10:30:43 CDT Robbie Busby MD [facility] CPT-56774 Level 3 Est. Patient 17:08:12 CDT Alex ALVAREZ [facility] CPT-74721 Level 4 Est. Patient 17:51:38 CDT Robbie Busby MD [facility]-81320 Level 4 Est. Patient 14:00:21 CDT Robbie Busby MD [facility] CPT-80682 Level 4 Est. Patient 12:46:48 CDT Robbie Busby MD [facility] CPT-98415 Level 4 Est. Patient 13:34:33 CDT Robbie Busby MD [facility] CPT-71852 Level 4 Est. Patient 16:58:28 CDT Robbie Busby MD [facility] CPT-42920 Level 3 Est. Patient 19:36:53 CDT Alex ALVAREZ [facility] CPT-28139 Level 3 Est. Patient 12:58:15 CDT Robbie Busby MD [facility] Procedures Code Procedure Name Date Entry Date Standard Description CPT-J0696 Rocephin 1000 mg (Ceftriaxone) 17:43:43 CRYSTAL GRINDER CPT-J1040 Depo Medrol 80 mg (Methyl Prednisolone Acetate) 17:43: 43 CRYSTAL GRINDER CPT-J1100 Decadron 8mg (Dexamethasone) 17:43:42 CRYSTAL GRINDER CPT-38450 Abx/Therapy Injection 17:43:42 CRYSTAL GRINDER CPT-53329 Abx/Therapy Injection 17:43:42 CRYSTAL GRINDER CPT-J1040 Depo Medrol 80 mg (Methyl Prednisolone Acetate) 09:43: 34 CRYSTAL GRINDER CPT-J1100 Decadron 8mg (Dexamethasone) 09:43:34 CRYSTAL GRINDER CPT-J0696 Rocephin 1gm Inj Solr 09:43:34 CRYSTAL GRINDER CPT-09754 Wound Culture - LAB USE ONLY 14:00:21 CDT CPT-I/D I/D Abscess 09:16:37 CDT CPT-03681 Venipuncture Draw Fee 15:20:23 CDT CPT-99572 Microalbumin - LAB USE ONLY 16:02:19 CDT CPT-51396 CBC - LAB USE ONLY 16:02:19 CDT CPT-87050 Venipuncture Draw Fee 16:02:19 CDT CPT-G0438 Initial Annual Wellness Exam 08:10:28 CDT CPT-72519 Venipuncture Draw Fee 13:07:17 CDT CPT-G0008 Administration of Influenza Virus Vaccine 16:09:59 CDT CPT-70075 Fluzone Quadrivalent Intramuscular Suspension 0.5 ML 16: 09:59 CDT CPT-25635 Spec Collection and Handling Fee 15:05:50 CDT
--- OUTSIDE RECORDS SUMMARY | 2018-04-18 10:23 | XMS REPORT | Clinical Summary ---
Author Author Admin, AKUA Organization [facility] Address Unknown Phone Unavailable Allergies, Adverse Reactions, Alerts Allergy Name Reaction Description Start Date Severity Status Provider No Known Allergies Gali Raida Conditions or Problems Problem Name Problem Code [...] chronic, stage III 585.3 Active Ca Garcia A Chronic kidney disease, Stage III (moderate) C V A / Stroke Active Robbie Busby MD Myocardial Infarction: Active Robbie Busby MD Acute myocardial infarction, unspecified site, initial episode of care ( History of) Sleep apnea, chronic 780.57 Active Erin Garsia V[employer]ER MARK[employer] Unspecified sleep apnea Continuous positive airway pressure rx V46.2 Active Erin Garsia [employer] Other dependence on machines, 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 Fatigue 780.79 Resolved Desmond Diaz DO Other malaise and fatigue Hypertension, secondary, 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 Desmond Diaz DO Other malignant secondary hypertension Tachycardia 785.0 Active Rober Rodríguez [employer] Tachycardia, unspecified Insect bite, infected 919.5 Resolved Desmond Diaz DO Insect bite, nonvenomous, of other, multiple, and unspecified sites, infected Abscess, skin 682.9 Resolved Desmond Diaz DO Cellulitis and abscess of unspecified sites URI 465.9 Resolved Desmond Diaz DO Acute upper respiratory infections of unspecified site Hypertension 401.9 Active Rober Rodríguez [employer] MARK[employer] Unspecified essential hypertension Sinusitis - acute 461.9 Resolved Desmond Diaz DO Acute sinusitis, unspecified Acute confusion 293.0 Resolved Desmond Howell Joe DO Delirium due to conditions classified elsewhere Headache 784.0 Resolved Desmond Howell Joe DO Headache Back pain 724.5 Resolved Desmond Diaz DO Backache , unspecified Back pain, thoracic region 724.1 Active Robbie Busby MD Pain in thoracic spine Preventive health care V70.0 Active Gali Negro Routine general medical examination at a health care facility Rib pain, right sided 786.50 Resolved Desmond Diaz DO Unspecified chest pain Vitamin D deficiency 268.9 Active Vanessa August Unspecified vitamin D deficiency Myalgias 729.1 Resolved Desmond Diaz DO Myalgia and myositis, unspecified URI 465.9 Resolved Desmond Diaz DO Acute upper respiratory infections of unspecified site Hypogonadism, low testosterone 257.2 Active Erin Garsia [employer] MARKER Other testicular hypofunction Low back pain, chronic 724.2 Active Robbie Busby MD Lumbago Bronchitis-Acute 466.0 Inactive Desmond Diaz DO Acute bronchitis Polydipsia 783.5 Active Desmond Diaz DO Polydipsia Type 2 diabetes mellitus with hyperglycemia Active Robbie Busby MD Sinusitis ICD-461.9 Inactive Emily tAwood LPN 2017 Low back pain, acute ICD-724.2 Inactive 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 LPN Low back pain, chronic ICD-724.2 Inactive 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 [employer] Bronchitis, acute ICD-466.0 Inactive 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 [employer] Onychomycosis, toenails ICD-110.1 Inactive 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 [employer] Dizziness ICD-780.4 Inactive 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 [employer] 2017 Folliculitis ICD-704.8 Inactive 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 [employer] Pharyngitis-Acute ICD-462 Inactive 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 [employer] Fatigue ICD-780.79 Inactive 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 [employer] 09/20 Hypertension, secondary, malignant ICD-405.09 Inactive 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 [employer] Insect bite, infected ICD-919.5 Inactive 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 [employer] Abscess, skin ICD-682.9 Inactive 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 [employer] URI ICD-465.9 Inactive 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 [employer] Sinusitis - acute ICD-461.9 Inactive 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 [employer] Acute confusion ICD-293.0 Inactive 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 [employer] Headache ICD-784.0 Inactive 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 [employer] 09/20 Back pain ICD-724.5 Inactive 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 [employer] 2017 Rib pain, right sided ICD-786.50 Inactive 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 [employer] Myalgias ICD-729.1 Inactive 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 LPN 09/20 URI ICD-465.9 Inactive 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 LPN Bronchitis-Acute ICD-466.0 Inactive Desmond Diaz DO Medication List Medication Instructions Start Date Stop Date Generic Name NDC Status Provider Patient Instruction CYCLOBENZAPRINE HCL 10 MG ORAL TABLET 1 tablet by mouth three times daily as needed for muscle spasm/pain CYCLOBENZAPRINE HCL 07104717918 Active Robbie Busby MD Active METFORMIN HCL 500 MG ORAL TABLET 1 tablet by mouth daily for diabetes type 2 METFORMIN HCL 09676798809 Active Robbie Busby MD Active SINGULAIR 10 MG ORAL TABLET 1 po qday for allergies. MONTELUKAST SODIUM 65762913838 Active Robbie Busby MD Active PREDNISONE 20 MG ORAL TABLET two tabs by mouth today, then one tab by mouth days two and three PREDNISONE 49110340890 No Longer Active Robbie Busby MD Active TOPIRAMATE 50 MG ORAL TABLET 1 po BID for migraines TOPIRAMATE 71288357137 Active JONATHAN Moncada Active AZITHROMYCIN 250 MG ORAL TABLET 2 po qd x 1 day, then 1 po qd x 4 days 09/20 AZITHROMYCIN 44934212063 No Longer Active Desmond Diaz DO Active TOPIRAMATE 50 MG ORAL TABLET take 1 tab po BID for migraines. TOPIRAMATE 15042754603 No Longer Active Desmond Diaz DO Active CYCLOBENZAPRINE HCL 10 MG ORAL TABLET 1 po TID PRN muscle spasm/pain for 10 days CYCLOBENZAPRINE HCL 96638730312 No Longer Active Desmond Diaz DO Active GUAIFENESIN ER 600 MG ORAL TABLET EXTENDED RELEASE 12 HOUR 1 tab po q am 2016 GUAIFENESIN 66583097926 No Longer Active Robbie Busby MD Active DIVALPROEX SODIUM ER 500 MG ORAL TABLET EXTENDED RELEASE 24 HOUR Once daily DIVALPROEX SODIUM 51388826060 Active Robbie Busby MD Active DEPO-TESTOSTERONE 200 MG/ML INTRAMUSCULAR SOLUTION 1 IM Injections every 2 weeks for low testosterone TESTOSTERONE CYPIONATE 38127387606 Active Zulema Blank LPN Active FLUTICASONE PROPIONATE 50 MCG/ACT NASAL SUSPENSION 2 sprays per nostril bid for 1 week, then 1 spray bid FLUTICASONE PROPIONATE 19235810932 Active Rober Rodríguez APRN Active HYDRALAZINE HCL 25 MG ORAL TABLET Take 1 tab BID. HYDRALAZINE HCL 06747324574 Active Rober Rodríguez APRN Active VITAMIN D3 25737 UNIT ORAL TABLET 2 po weekly CHOLECALCIFEROL 06989626964 Active Robbie Busby MD Active OXYCODONE HCL ER 10 MG ORAL TABLET ER 12 HOUR ABUSE-DETERRENT 1 tab po 3 times qd. OXYCODONE HCL 58399316609 Active Robbie Busby MD Active NITROSTAT 0.4 MG SUBLINGUAL TABLET SUBLINGUAL PRN NITROGLYCERIN 54292206211 No Longer Active Robbie Busby MD Active LORATADINE 10 MG ORAL TABLET 1 tablet by mouth daily for congestion and allergies. LORATADINE 75976974967 No Longer Active Robbie Busby MD Active FLONASE 50 MCG/ACT NASAL SUSPENSION 1 spray each nostril twice daily for allergies and runny nose FLUTICASONE PROPIONATE 21793577570 No Longer Active Robbie Busby MD Active FIORICET 50-300-40 MG ORAL CAPSULE take 1 tab po qday prn migraines. [id number] 53312905786 No Longer Active Robbie Busby MD Active VITAMIN D3 25938 UNIT ORAL CAPSULE 2 CAPS PO WEEKLY CHOLECALCIFEROL 61822585731 No Longer Active Robbie Busby MD Active CYCLOBENZAPRINE HCL 10 MG ORAL TABLET 1 tablet by mouth three times daily as needed for muscle spasm/pain for 10 days CYCLOBENZAPRINE HCL 98042028631 No Longer Active Robbie Busby MD Active PREDNISONE 20 MG ORAL TABLET take 3 tabs daily for 3 days, 2 tabs daily for 3 days, 1 tab daily for 3 days, 1/2 tab daily for 4 days PREDNISONE 12115580939 No Longer Active Erin Garsia APRN Active CLONIDINE HCL 0.2 MG ORAL TABLET 1 TAB BY MOUTH EVERY 8 HOURS CLONIDINE HCL 84167563532 No Longer Active Erin Garsia APRN Active MECLIZINE HCL 25 MG ORAL TABLET one 4 times a day as needed for dizziness MECLIZINE HCL 40739440931 No Longer Active Erin Garsia APRN Active SPIRONOLACTONE 25 MG ORAL TABLET 4 tablets by mouth daily SPIRONOLACTONE 69712327934 No Longer Active Erin Garsia APRN Active LEVAQUIN 500 MG ORAL TABLET 1 tablet by mouth daily for 7 days LEVOFLOXACIN 63581073036 No Longer Active Erin Garsia APRN Active BACTRIM DS 800-160 MG ORAL TABLET 1 tab by mouth twice daily 2015 TRIMETHOPRIM-SULFAMETHOXAZOLE 81998659173 No Longer Active Robbie Busby MD Active HYDRALAZINE HCL 50 MG ORAL TABLET TWO BY MOUTH THREE TIMES DAILY HYDRALAZINE HCL 39739205083 No Longer Active Rober Rodríguez APRN Active HYDROCODONE-ACETAMINOPHEN 5-325 MG ORAL TABLET 1 tab by mouth BID prn back pain HYDROCODONE-ACETAMINOPHEN 53132100015 No Longer Active Jillina Anne GONZALEZN Active HYDROCHLOROTHIAZIDE TABLET Take one by mouth daily HYDROCHLOROTHIAZIDE TABS 68704479502 No Longer Active Andrellld Poolel VENEER MARKER Active LAMISIL 125 MG ORAL PACKET 1 TAB PO DAILY TERBINAFINE HCL 61776027745 No Longer Active Rober Rodríguez APRN Active TRILEPTAL 150 MG ORAL TABLET 1 TAB PO Q HS OXCARBAZEPINE 13730011931 No Longer Active Jillld Poolel VENEER MARKER Active BETADINE 10 % EXTERNAL SOLUTION 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 07/29 POVIDONE-IODINE 39713376843 No Longer Active Rober Rodríguez APRN Active NYSTATIN 873287 UNIT/ML MOUTH/THROAT SUSPENSION 5mL po QID x 10 days NYSTATIN 17845042521 No Longer Active Erin Garsia APRN Active PREDNISONE 20 MG ORAL TABLET 1 tablet twice daily for 2 days, then 1 tablet once daily for 2 days PREDNISONE 17720447816 No Longer Active Robbie Busby MD Active CEFDINIR 300 MG ORAL CAPSULE Take 1 cap po bid x 10 days CEFDINIR 21401853098 No Longer Active Robbie Busby MD Active AMLODIPINE BESYLATE 10 MG ORAL TABLET 1 tablet by mouth daily AMLODIPINE BESYLATE 28595346618 Active Robbie Busby MD Active CARVEDILOL 25 MG ORAL TABLET 1 & 1/2 TAB po BID CARVEDILOL 82042601045 Active Robbie Busby MD Active NEXIUM 40 MG ORAL CAPSULE DELAYED RELEASE 1 cap by mouth daily ESOMEPRAZOLE MAGNESIUM 50051874364 Active Robbie Busby MD Active PROTONIX 40 MG INTRAVENOUS SOLUTION RECONSTITUTED 1 po qday for acid reflux PANTOPRAZOLE SODIUM 39406270046 No Longer Active Gali Raida Active KEFLEX 500 MG ORAL CAPSULE 1 po TID x 10 days CEPHALEXIN 81064189881 No Longer Active Robbie Busby MD Active TEMAZEPAM 15 MG ORAL CAPSULE 1 TAB PO Q HS TEMAZEPAM 90318281365 Active Robbie Busby MD Active ALPRAZOLAM 2 MG ORAL TABLET 1 TAB PO BID ALPRAZOLAM 52133184929 Active Robbie Busby MD Active FENOFIBRATE 145 MG ORAL TABLET Take one by mouth daily FENOFIBRATE 48310592050 No Longer Active Robbie Busby MD Active SPIRONOLACTONE 50 MG ORAL TABLET 1 tablet by mouth twice a day SPIRONOLACTONE 22187374886 No Longer Active Robbie Busby MD Active HYDRALAZINE HCL 25 MG ORAL TABLET 1 tablet by mouth tid for hypertension 2013 HYDRALAZINE HCL 78726914136 No Longer Active Robbie Busby MD Active VIIBRYD 40 MG ORAL TABLET take 1 tab po qday for depression. 2014 VILAZODONE HCL 25402541504 No Longer Active Robbie Busby MD Active TERBINAFINE HCL 250 MG ORAL TABLET 1 tab po qday for foot infection TERBINAFINE HCL 74191880571 No Longer Active Robbie Busby MD Active GABAPENTIN 300 MG ORAL CAPSULE 1 po q hs for nerve pain GABAPENTIN 76678061932 Active Robbie Busby MD Active CHERATUSSIN AC 100-10 MG/5ML ORAL SOLUTION 7.5 mL PO q 4-6 hrs PRN cough 2014 GUAIFENESIN-CODEINE 04864085758 No Longer Active Robbie Busby MD Active AZITHROMYCIN 250 MG ORAL TABLET 2 tablets PO today---then, 1 tablet PO daily x 4 more days (and 1 optional refill) AZITHROMYCIN 48543365218 No Longer Active Robbie Busby MD Active NORVASC 10 MG ORAL TABLET 1 tablet by mouth daily AMLODIPINE BESYLATE 32680810717 No Longer Active Alex ALVAREZ Active IMDUR 60 MG ORAL TABLET EXTENDED RELEASE 24 HOUR take 1 tab po qday for blood pressure ISOSORBIDE MONONITRATE 69797768135 Active Robbie Busby MD Active ISOSORBIDE DINITRATE 30 MG ORAL TABLET Take one by mouth daily ISOSORBIDE DINITRATE 41684381346 No Longer Active Robbie Busby MD Active VIIBRYD 40 MG ORAL TABLET 1 TA B PO DAILY VILAZODONE HCL 45919572437 Active Robbie Busby MD Active ZITHROMAX 250 MG ORAL TABLET 2 po today, then 1 po q days 2-5 AZITHROMYCIN 73118199896 No Longer Active Robbie Busby MD Active [id number] 0.3 MG/24HR TRANSDERMAL PATCH WEEKLY apply 2 patches q week for HTN CLONIDINE HCL 56093214951 Active Robbie Busby MD Active DOXAZOSIN MESYLATE 4 MG ORAL TABLET Take one by mouth daily DOXAZOSIN MESYLATE 77240831249 Active Robbie Busby MD Active TOPROL XL 200 MG ORAL TABLET EXTENDED RELEASE 24 HOUR Take one by mouth daily METOPROLOL SUCCINATE 79824750940 Active Robbie Busby MD Active VENLAFAXINE HCL ER 150 MG ORAL TABLET EXTENDED RELEASE 24 HOUR Take one by mouth daily VENLAFAXINE HCL 47022437144 Active Robbie Busby MD Active LIPITOR 40 MG ORAL TABLET Take one by mouth daily ATORVASTATIN CALCIUM 84533930972 Active Robbie Busby MD Active ISOSORBIDE DINITRATE 30 MG ORAL TABLET Take one by mouth daily ISOSORBIDE DINITRATE 30 MG ORAL TABLET 864739 ISOSORBIDE DINITRATE Inactive NORVASC 10 MG ORAL TABLET 1 tablet by mouth daily NORVASC 10 MG ORAL TABLET 059656 AMLODIPINE BESYLATE Inactive AZITHROMYCIN 250 MG ORAL TABLET 2 tablets PO today---then, 1 tablet PO daily x 4 more days (and 1 optional refill) AZITHROMYCIN 250 MG ORAL TABLET 155850 AZITHROMYCIN Inactive CHERATUSSIN AC 100-10 MG/5ML ORAL SOLUTION 7.5 mL PO q 4-6 hrs PRN cough 2014 CHERATUSSIN AC 100-10 MG/5ML ORAL SOLUTION 847187 GUAIFENESIN-CODEINE Inactive VIIBRYD 40 MG ORAL TABLET take 1 tab po qday for depression. 2014 VIIBRYD 40 MG ORAL TABLET VILAZODONE HCL Inactive HYDRALAZINE HCL 25 MG ORAL TABLET 1 tablet by mouth tid for hypertension 2013 HYDRALAZINE HCL 25 MG ORAL TABLET 339020 HYDRALAZINE HCL Inactive SPIRONOLACTONE 50 MG ORAL TABLET 1 tablet by mouth twice a day SPIRONOLACTONE 50 MG ORAL TABLET 431283 SPIRONOLACTONE Inactive FENOFIBRATE 145 MG ORAL TABLET Take one by mouth daily FENOFIBRATE 145 MG ORAL TABLET 874176 FENOFIBRATE Inactive PROTONIX 40 MG INTRAVENOUS SOLUTION RECONSTITUTED 1 po qday for acid reflux PROTONIX 40 MG INTRAVENOUS SOLUTION RECONSTITUTED 483379 PANTOPRAZOLE SODIUM Inactive CEFDINIR 300 MG ORAL CAPSULE Take 1 cap po bid x 10 days CEFDINIR 300 MG ORAL CAPSULE 002599 CEFDINIR Inactive PREDNISONE 20 MG ORAL TABLET 1 tablet twice daily for 2 days, then 1 tablet once daily for 2 days PREDNISONE 20 MG ORAL TABLET 092783 PREDNISONE Inactive NYSTATIN 085747 UNIT/ML MOUTH/THROAT SUSPENSION 5mL po QID x 10 days NYSTATIN 606224 UNIT/ML MOUTH/THROAT SUSPENSION 828022 NYSTATIN Inactive BETADINE 10 % EXTERNAL SOLUTION 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 07/29 BETADINE 10 % EXTERNAL SOLUTION 9505879 POVIDONE-IODINE Inactive TRILEPTAL 150 MG ORAL TABLET 1 TAB PO Q HS TRILEPTAL 150 MG ORAL TABLET 882054 OXCARBAZEPINE Inactive LAMISIL 125 MG ORAL PACKET 1 TAB PO DAILY LAMISIL 125 MG ORAL PACKET TERBINAFINE HCL Inactive HYDROCHLOROTHIAZIDE TABLET Take one by mouth daily HYDROCHLOROTHIAZIDE TABLET HYDROCHLOROTHIAZIDE TABS Inactive HYDROCODONE-ACETAMINOPHEN 5-325 MG ORAL TABLET 1 tab by mouth BID prn back pain HYDROCODONE-ACETAMINOPHEN 5-325 MG ORAL TABLET 233903 HYDROCODONE-ACETAMINOPHEN Inactive HYDRALAZINE HCL 50 MG ORAL TABLET TWO BY MOUTH THREE TIMES DAILY HYDRALAZINE HCL 50 MG ORAL TABLET 790642 HYDRALAZINE HCL Inactive LEVAQUIN 500 MG ORAL TABLET 1 tablet by mouth daily for 7 days LEVAQUIN 500 MG ORAL TABLET 593872 LEVOFLOXACIN Inactive SPIRONOLACTONE 25 MG ORAL TABLET 4 tablets by mouth daily SPIRONOLACTONE 25 MG ORAL TABLET 806835 SPIRONOLACTONE Inactive MECLIZINE HCL 25 MG ORAL TABLET one 4 times a day as needed for dizziness MECLIZINE HCL 25 MG ORAL TABLET 443566 MECLIZINE HCL Inactive CLONIDINE HCL 0.2 MG ORAL TABLET 1 TAB BY MOUTH EVERY 8 HOURS CLONIDINE HCL 0.2 MG ORAL TABLET 692052 CLONIDINE HCL Inactive CYCLOBENZAPRINE HCL 10 MG ORAL TABLET 1 tablet by mouth three times daily as needed for muscle spasm/pain for 10 days CYCLOBENZAPRINE HCL 10 MG ORAL TABLET 210807 CYCLOBENZAPRINE HCL Inactive VITAMIN D3 23436 UNIT ORAL CAPSULE 2 CAPS PO WEEKLY VITAMIN D3 51551 UNIT ORAL CAPSULE CHOLECALCIFEROL Inactive FIORICET 50-300-40 MG ORAL CAPSULE take 1 tab po qday prn migraines. FIORICET 50-300-40 MG ORAL CAPSULE 082690 BUTALBITAL-APAP- CAFFEINE Inactive FLONASE 50 MCG/ACT NASAL SUSPENSION 1 spray each nostril twice daily for allergies and runny nose FLONASE 50 MCG/ACT NASAL SUSPENSION 5504635 FLUTICASONE PROPIONATE Inactive LORATADINE 10 MG ORAL TABLET 1 tablet by mouth daily for congestion and allergies. LORATADINE 10 MG ORAL TABLET 299927 LORATADINE Inactive NITROSTAT 0.4 MG SUBLINGUAL TABLET SUBLINGUAL PRN NITROSTAT 0.4 MG SUBLINGUAL TABLET SUBLINGUAL 542048 NITROGLYCERIN Inactive GUAIFENESIN ER 600 MG ORAL TABLET EXTENDED RELEASE 12 HOUR 1 tab po q am 2016 GUAIFENESIN ER 600 MG ORAL TABLET EXTENDED RELEASE 12 HOUR GUAIFENESIN Inactive CYCLOBENZAPRINE HCL 10 MG ORAL TABLET 1 po TID PRN muscle spasm/pain for 10 days CYCLOBENZAPRINE HCL 10 MG ORAL TABLET 092974 CYCLOBENZAPRINE HCL Inactive TOPIRAMATE 50 MG ORAL TABLET take 1 tab po BID for migraines. TOPIRAMATE 50 MG ORAL TABLET 608077 TOPIRAMATE Inactive PREDNISONE 20 MG ORAL TABLET two tabs by mouth today, then one tab by mouth days two and three PREDNISONE 20 MG ORAL TABLET 156602 PREDNISONE Inactive ZITHROMAX 250 MG ORAL TABLET 2 po today, then 1 po q days 2-5 ZITHROMAX 250 MG ORAL TABLET 700205 AZITHROMYCIN Inactive TERBINAFINE HCL 250 MG ORAL TABLET 1 tab po qday for foot infection TERBINAFINE HCL 250 MG ORAL TABLET 444710 TERBINAFINE HCL Inactive KEFLEX 500 MG ORAL CAPSULE 1 po TID x 10 days KEFLEX 500 MG ORAL CAPSULE 055415 CEPHALEXIN Inactive BACTRIM DS 800-160 MG ORAL TABLET 1 tab by mouth twice daily 2015 BACTRIM DS 800-160 MG ORAL TABLET 140203 TRIMETHOPRIM- SULFAMETHOXAZOLE Inactive PREDNISONE 20 MG ORAL TABLET take 3 tabs daily for 3 days, 2 tabs daily for 3 days, 1 tab daily for 3 days, 1/2 tab daily for 4 days PREDNISONE 20 MG ORAL TABLET 978613 PREDNISONE Inactive AZITHROMYCIN 250 MG ORAL TABLET 2 po qd x 1 day, then 1 po qd x 4 days 09/20 AZITHROMYCIN 250 MG ORAL TABLET 039072 AZITHROMYCIN Inactive Advance Directives Directive Description Start Date DISCUSSED WITH PATIENT -- NO DECISION MADE Vital Signs Date Name Value Unit Range Description blood pressure, diastolic 95 mm[Hg] BP del [...] AUTO - Chemistry sodium, serum 142 mmol/L 410-939 6648/07/17 carbon dioxide, venous blood 28.2 mmol/L 21.0-32.0 [...] % 11.0-15.0 platelet count 185 THOUSAND/UL 10*3/mm3 463-148 8711/04/14 mean platelet volume 10.9 fL 7.5-12.5 Lab Report: HGBA1C, Basic Metabolic Panel - Chemistry hemoglobin A1C, blood, as % of total hemoglobin 6.9 % 4.3-6.0 sodium, serum 139 mmol/L 065-293 4928/01/04 potassium, serum 3.9 mmol/L 3.5-5.2 chloride, serum 103 mmol/L 98-107 carbon dioxide, venous blood 26.9 mmol/L 21.0-32.0 blood glucose 106 mg/dL 65-110 calcium, serum 9.0 mg/dL 8.5-10.1 urea nitrogen, blood 20 mg/dL 7-18 creatinine, serum 1.46 mg/dL 0.60-1.30 Lab Report: LIPID PANEL, TSH/899, T4, FREE/866 - Chemistry cholesterol, serum 220 mg/dL 396-152 3295/04/14 HDL cholesterol, serum 30 mg/dL > OR=40 [...] 1.80 ng/mL 0.00-4.00 Lab Report: VITAMIN D, 25-HYDROXY/17641 - Chemistry vitamin D 25-hydroxy, serum 25 ng/mL 30-100 Office Visit: Confusion, dizziness after fall - Basic LDL target level 130 mg/dL Office Visit: Confusion, dizziness after fall - Chemistry HDL cholesterol, serum, target level 40 mg/dL triglyceride, target level 150 mg/dL cholesterol, target level 200 mg/dL Encounters Code Encounter Date Provider Facility CPT-77973 Level 4 Est. Patient 13:07:39 [employer] ASSISTANT Robbie Busby MD [facility] CPT-49511 Level 4 Est. Patient 15:23:44 [employer] FREE[employer]ER ASSISTANT Desmond Diaz [facility] CPT-87252 Level 3 Est. Patient 15:40:49 CDT Robbie Busby MD [facility] CPT-19771 Level 4 Est. Patient 15:18:19 CDT Robbie Busby MD [facility] CPT-21570 Level 3 Est. Patient 09:00:37 CDT Rober Rodríguez [facility] CPT-99349 Level 3 Est. Patient 16:07:10 CDT Robbie Busby MD [facility] CPT-63838 Level 4 Est. Patient 11:56:16 CDT Erin Garsia [facility] CPT-59623 Level 3 Est. Patient 17:48:02 CDT Robbie Busby MD [facility] CPT-08285 Level 4 Est. Patient 12:00:49 [employer] FREEZER ASSISTANT Rober Rodríguez [facility] CPT-81398 Level 3 Est. Patient 09:16:37 CDT Robbie Busby MD [facility] CPT-21192 Level 3 Est. Patient 19:38:43 CDT Robbie Busby MD [facility] CPT-40447 Level 3 Est. Patient 11:53:38 CDT Robbie Busby MD [facility] CPT-96768 Level 4 Est. Patient 12:52:22 CDT Rober Rodríguez [facility] CPT-65927 Level 4 Est. Patient 22:55:17 CDT Robbie Busby MD [facility] CPT-20051 Level 3 Est. Patient 12:38:24 CDT Desmond Diaz [facility] CPT-65411 Level 4 Est. Patient 11:25:03 [employer] FREEZER ASSISTANT Robbie Busby MD [facility] CPT-33568 Level 4 Est. Patient 14:50:10 CDT Robbie Busby MD [facility] CPT-43776 Level 4 Est. Patient 23:30:43 CDT Robbie Busby MD [facility] CPT-32594 Level 4 Est. Patient 10:30:43 CDT Robbie Busby MD [facility] CPT-74776 Level 3 Est. Patient 17:08:12 CDT Alex Shaw [facility] CPT-33665 Level 4 Est. Patient 17:51:38 CDT Robbie Busby MD [facility] CPT-86563 Level 4 Est. Patient 14:00:21 CDT Robbie Busby MD [facility] CPT-61278 Level 4 Est. Patient 12:46:48 CDT Robbie Busby MD [facility] CPT-33881 Level 4 Est. Patient 13:34:33 CDT Robbie Busby MD [facility] CPT-86854 Level 4 Est. Patient 16:58:28 CDT Robbie Busby MD [facility] CPT-83017 Level 3 Est. Patient 19:36:53 CDT Alex ALVAREZ [facility] CPT-85678 Level 3 Est. Patient 12:58:15 CDT Robbie Busby MD [facility] Procedures Code Procedure Name Date Entry Date Standard Description CPT-J1071 Depo Testosterone 200mg 16:13:47 [employer]ER ASSISTANT CPT-03418 Abx/Therapy Injection 16:13:46 [employer]ER ASSISTANT CPT-J1071 Depo Testosterone 200mg 15:33:58 [employer] FREE[employer]ER ASSISTANT CPT-03138 Abx/Therapy Injection 15:33:58 [employer] FREE[employer]ER ASSISTANT CPT-J1071 Depo Testosterone 200mg 09:38:36 [employer] FREE[employer]ER ASSISTANT CPT-75338 Abx/Therapy Injection 09:38:36 [facility] CPT-J1071 Depo Testosterone 200mg 10:22:56 [employer] FREEZER ASSISTANT CPT-20108 Abx/Therapy Injection 10:22:56 [employer] FREE[employer]ER ASSISTANT CPT-J1071 Depo Testosterone 200mg 15:40:23 CDT CPT-72019 Abx/Therapy Injection 15:40:23 CDT CPT-J1071 Depo Testosterone 200mg 14:20:43 CDT CPT-85489 Abx/Therapy Injection 14:20:43 CDT CPT-J1071 Depo Testosterone 200mg 14:17:22 CDT CPT-63044 Abx/Therapy Injection 14:17:22 CDT CPT-J1071 Depo Testosterone 200mg 09:03:53 CDT CPT-87648 Abx/Therapy Injection 09:03:53 CDT CPT-G0439 [facility] Annual Wellness Exam 16:47:44 CDT CPT-J1071 Depo Testosterone 200mg 09:06:28 CDT CPT-52825 Abx/Therapy Injection 09:06:28 CDT CPT-J1071 Depo Testosterone 200mg 08:30:01 CDT CPT-55127 Abx/Therapy Injection 08:30:01 CDT CPT-J1071 Depo Testosterone 200mg 08:24:00 CDT CPT-73325 Abx/Therapy Injection 08:24:00 CDT CPT-28839 Venipuncture Draw Fee 14:39:06 CDT CPT-40907 Ribs unilateral 2V - XRAY USE ONLY 12:10:11 CDT CPT-43802 First Vx - Ix admin for Medicare patients 16:32:53 CDT CPT-78453 Boostrix Intramuscular Suspension 5-2.5-18.5 16:32:53 CDT CPT-99226 TB Skin Test 11:42:28 CDT CPT-87572 Tdap 7yrs or > 11:42:28 CDT CPT-J0696 Rocephin 1000 mg (Ceftriaxone) 17:43:43 [employer] ASSISTANT CPT-J1040 Depo Medrol 80 mg (Methyl Prednisolone Acetate) 17:43: 43 [employer]ER ASSISTANT CPT-J1100 Decadron 8mg (Dexamethasone) 17:43:42 [employer]ER ASSISTANT CPT-38100 Abx/Therapy Injection 17:43:42 [employer] FREE[employer]ER ASSISTANT CPT-97173 Abx/Therapy Injection 17:43:42 [employer] FREEZER ASSISTANT CPT-J1040 Depo Medrol 80 mg (Methyl Prednisolone Acetate) 09:43: 34 [employer] FREEZER ASSISTANT CPT-J1100 Decadron 8mg (Dexamethasone) 09:43:34 [employer] FREE[employer]ER ASSISTANT CPT-J0696 Rocephin 1gm Inj Solr 09:43:34 [employer] FREE[employer]ER ASSISTANT CPT-40414 Wound Culture - LAB USE ONLY 14:00:21 CDT CPT-I/D I/D Abscess 09:16:37 CDT CPT-37403 Venipuncture Draw Fee 15:20:23 CDT CPT-78624 Microalbumin - LAB USE ONLY 16:02:19 CDT CPT-40446 CBC - LAB USE ONLY 16:02:19 CDT CPT-79745 Venipuncture Draw Fee 16:02:19 CDT CPT-G0438 Initial Annual Wellness Exam 08:10:28 CDT CPT-33505 Venipuncture Draw Fee 13:07:17 CDT CPT-G0008 Administration of Influenza Virus Vaccine 16:09:59 CDT CPT-94966 Fluzone Quadrivalent Intramuscular Suspension 0.5 ML 16: 09:59 CDT CPT-41758 Spec Collection and Handling Fee 15:05:50 CDT
--- OUTSIDE RECORDS SUMMARY | 2018-04-18 10:24 | XMS REPORT | Clinical Summary ---
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 Desmond Diaz DO Other malignant secondary hypertension Tachycardia 785.0 Active Rober Rodríguez SUPERVISOR [employer]EL Tachycardia, unspecified Insect bite, infected 919.5 Resolved Desmond Diaz DO Insect bite, nonvenomous, of other, multiple, and unspecified sites, infected Abscess, skin 682.9 Resolved Desmond Diaz DO Cellulitis and abscess of unspecified sites URI 465.9 Resolved Desmond Diaz DO Acute upper respiratory infections of unspecified site Hypertension 401.9 Active Rober Rodríguez SUPERVISOR [employer]EL Unspecified essential hypertension Sinusitis - acute 461.9 [...] and myositis, unspecified URI 465.9 Resolved Desmond W Joe DO Acute upper respiratory infections of unspecified site Hypogonadism, low testosterone 257.2 Active Erin Mai SUPERVISOR [employer] Other testicular hypofunction Low back pain, chronic [...] 37.0-37.9, adult Sinusitis ICD-461.9 Inactive 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 GUN PERFORATOR LOADER 2017 Low back pain, acute ICD-724.2 Inactive 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 GUN PERFORATOR LOADER Low back pain, chronic ICD-724.2 Inactive 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 GUN PERFORATOR LOADER Bronchitis, acute ICD-466.0 Inactive 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 GUN PERFORATOR LOADER Onychomycosis, toenails ICD-110.1 Inactive 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 GUN PERFORATOR LOADER Dizziness ICD-780.4 Inactive 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 GUN PERFORATOR LOADER 2017 Folliculitis ICD-704.8 Inactive 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 GUN PERFORATOR LOADER Pharyngitis-Acute ICD-462 Inactive 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 GUN PERFORATOR LOADER Fatigue ICD-780.79 Inactive 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 GUN PERFORATOR LOADER 09/20 Hypertension, secondary, malignant ICD-405.09 Inactive 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 GUN PERFORATOR LOADER Insect bite, infected ICD-919.5 Inactive 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 GUN PERFORATOR LOADER Abscess, skin ICD-682.9 Inactive 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 GUN PERFORATOR LOADER URI ICD-465.9 Inactive 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 GUN PERFORATOR LOADER Sinusitis - acute ICD-461.9 Inactive 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 GUN PERFORATOR LOADER Acute confusion ICD-293.0 Inactive 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 GUN PERFORATOR LOADER Headache ICD-784.0 Inactive Emily Rai CISSE 09/20 Back pain ICD-724.5 Inactive 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nae CISSE 2017 Rib pain, right sided ICD-786.50 Inactive Emily Rai CISSE Myalgias ICD-729.1 Inactive Emily Rai LOPEZN 09/20 URI ICD-465.9 Inactive Emily Rai CISSE Bronchitis-Acute ICD-466.0 Inactive Desmond Diaz DO Medication List Medication Instructions Start Date Stop Date Generic Name NDC Status Provider Patient Instruction IMDUR 60 MG ORAL TABLET EXTENDED RELEASE 24 HOUR 1 po q day ISOSORBIDE MONONITRATE 01683476564 Active Emma Hernandez Active METOPROLOL SUCCINATE ER 200 MG ORAL TABLET EXTENDED RELEASE 24 HOUR take 1 tab po qday for high blood pressure and rapid pulse METOPROLOL SUCCINATE 62460986011 Active Robbie Busby MD Active PBVOVODV-SXA-6 0.3 MG/24HR TRANSDERMAL PATCH WEEKLY apply 2 patches q week for HTN CLONIDINE HCL 86865285230 No Longer Active Robbie Busby MD Active IMDUR 60 MG ORAL TABLET EXTENDED RELEASE 24 HOUR take 1 tab po qday for blood pressure ISOSORBIDE MONONITRATE 61189939437 No Longer Active Robbie Busby MD Active TEMAZEPAM 15 MG ORAL CAPSULE 1 TAB PO Q HS TEMAZEPAM 62312860480 No Longer Active Robbie Busby MD Active TOPIRAMATE 50 MG ORAL TABLET 1 po BID for migraines TOPIRAMATE 06092378609 No Longer Active Robbie Busby MD Active CYCLOBENZAPRINE HCL 10 MG ORAL TABLET 1 tablet by mouth three times daily as needed for muscle spasm/pain CYCLOBENZAPRINE HCL 90931600534 No Longer Active Robbie Busby MD Active TOPROL XL 200 MG ORAL TABLET EXTENDED RELEASE 24 HOUR Take one by mouth daily METOPROLOL SUCCINATE 67842549417 No Longer Active Robbie Busby MD Active METFORMIN HCL 500 MG ORAL TABLET 1 tablet by mouth daily for diabetes type 2 METFORMIN HCL 25863477307 Active Robbie Busby MD Active SINGULAIR 10 MG ORAL TABLET 1 po qday for allergies. MONTELUKAST SODIUM 18373493737 No Longer Active Robbie Busby MD Active PREDNISONE 20 MG ORAL TABLET two tabs by mouth today, then one tab by mouth days two and three PREDNISONE 60811040645 No Longer Active Robbie Busby MD Active AZITHROMYCIN 250 MG ORAL TABLET 2 po qd x 1 day, then 1 po qd x 4 days 09/20 AZITHROMYCIN 90512534487 No Longer Active Desmond Diaz DO Active TOPIRAMATE 50 MG ORAL TABLET take 1 tab po BID for migraines. TOPIRAMATE 80279368511 No Longer Active Desmond Diaz DO Active CYCLOBENZAPRINE HCL 10 MG ORAL TABLET 1 po TID PRN muscle spasm/pain for 10 days CYCLOBENZAPRINE HCL 67894247241 No Longer Active Desmond Diaz DO Active GUAIFENESIN ER 600 MG ORAL TABLET EXTENDED RELEASE 12 HOUR 1 tab po q am 2016 GUAIFENESIN 39113067772 No Longer Active Robbie Busby MD Active DIVALPROEX SODIUM ER 500 MG ORAL TABLET EXTENDED RELEASE 24 HOUR Once daily DIVALPROEX SODIUM 48677738031 Active Robbie Busby MD Active DEPO-TESTOSTERONE 200 MG/ML INTRAMUSCULAR SOLUTION 1 IM Injections every 2 weeks for low testosterone TESTOSTERONE CYPIONATE 56695467022 Active Zulema Blank LPN Active FLUTICASONE PROPIONATE 50 MCG/ACT NASAL SUSPENSION 2 sprays per nostril bid for 1 week, then 1 spray bid FLUTICASONE PROPIONATE 71271944880 Active Rober Rodríguez APRN Active HYDRALAZINE HCL 25 MG ORAL TABLET Take 1 tab BID. HYDRALAZINE HCL 13661193398 Active Rober Rodríguez APRN Active VITAMIN D3 39914 UNIT ORAL TABLET 2 po weekly CHOLECALCIFEROL 69488945063 Active Robbie Busby MD Active OXYCODONE HCL ER 10 MG ORAL TABLET ER 12 HOUR ABUSE-DETERRENT 1 tab po 3 times qd. OXYCODONE HCL 41523937875 Active Robbie Busby MD Active NITROSTAT 0.4 MG SUBLINGUAL TABLET SUBLINGUAL PRN NITROGLYCERIN 99833250803 No Longer Active Robbie Busby MD Active LORATADINE 10 MG ORAL TABLET 1 tablet by mouth daily for congestion and allergies. LORATADINE 21190786772 No Longer Active Robbie Busby MD Active FLONASE 50 MCG/ACT NASAL SUSPENSION 1 spray each nostril twice daily for allergies and runny nose FLUTICASONE PROPIONATE 10394005071 No Longer Active Robbie Busby MD Active FIORICET 50-300-40 MG ORAL CAPSULE take 1 tab po qday prn migraines. [id number] 53414238719 No Longer Active Robbie Busby MD Active VITAMIN D3 18003 UNIT ORAL CAPSULE 2 CAPS PO WEEKLY CHOLECALCIFEROL 35385959806 No Longer Active Robbie Busby MD Active CYCLOBENZAPRINE HCL 10 MG ORAL TABLET 1 tablet by mouth three times daily as needed for muscle spasm/pain for 10 days CYCLOBENZAPRINE HCL 13270878903 No Longer Active Robbie Busby MD Active PREDNISONE 20 MG ORAL TABLET take 3 tabs daily for 3 days, 2 tabs daily for 3 days, 1 tab daily for 3 days, 1/2 tab daily for 4 days PREDNISONE 31226487796 No Longer Active Erin Mai APRN Active CLONIDINE HCL 0.2 MG ORAL TABLET 1 TAB BY MOUTH EVERY 8 HOURS CLONIDINE HCL 17885745283 No Longer Active Erin Mai APRN Active MECLIZINE HCL 25 MG ORAL TABLET one 4 times a day as needed for dizziness MECLIZINE HCL 78354537733 No Longer Active Erin Mai APRN Active SPIRONOLACTONE 25 MG ORAL TABLET 4 tablets by mouth daily SPIRONOLACTONE 73612003809 No Longer Active Erin Riverall SUPERVISOR [employer]EARCH [employer]ENNEL Active LEVAQUIN 500 MG ORAL TABLET 1 tablet by mouth daily for 7 days LEVOFLOXACIN 12081028364 No Longer Active Erin Mai SUPERVISOR [employer]EARCH [employer]ENNEL Active BACTRIM DS 800-160 MG ORAL TABLET 1 tab by mouth twice daily 2015 TRIMETHOPRIM-SULFAMETHOXAZOLE 61856736303 No Longer Active Robbie Busby MD Active HYDRALAZINE HCL 50 MG ORAL TABLET TWO BY MOUTH THREE TIMES DAILY HYDRALAZINE HCL 67291303548 No Longer Active 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 SUPERVISOR [employer]EARCH KENNEL Active HYDROCODONE-ACETAMINOPHEN 5-325 MG ORAL TABLET 1 tab by mouth BID prn back pain HYDROCODONE-ACETAMINOPHEN 88242844471 No Longer Active 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 SUPERVISOR [employer]EARCH KENNEL Active HYDROCHLOROTHIAZIDE TABLET Take one by mouth daily HYDROCHLOROTHIAZIDE TABS 26347790869 No Longer Active 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 SUPERVISOR RESEARCH KENNEL Active LAMISIL 125 MG ORAL PACKET 1 TAB PO DAILY TERBINAFINE HCL 47477053883 No Longer Active 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 SUPERVISOR [employer]EARCH [employer]ENNEL Active TRILEPTAL 150 MG ORAL TABLET 1 TAB PO Q HS OXCARBAZEPINE 16318135777 No Longer Active 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 SUPERVISOR RESEARCH KENNEL Active BETADINE 10 % EXTERNAL SOLUTION 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 07/29 POVIDONE-IODINE 72682262576 No Longer Active 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 SUPERVISOR [employer]EARCH KENNEL Active NYSTATIN 801036 UNIT/ML MOUTH/THROAT SUSPENSION 5mL po QID x 10 days NYSTATIN 54884947973 No Longer Active Erin Mai SUPERVISOR [employer]EARCH KENNEL Active PREDNISONE 20 MG ORAL TABLET 1 tablet twice daily for 2 days, then 1 tablet once daily for 2 days PREDNISONE 88095009155 No Longer Active Robbie Busby MD Active CEFDINIR 300 MG ORAL CAPSULE Take 1 cap po bid x 10 days CEFDINIR 54976225169 No Longer Active Robbie Busby MD Active AMLODIPINE BESYLATE 10 MG ORAL TABLET 1 tablet by mouth daily AMLODIPINE BESYLATE 42922480994 Active Robbie Busby MD Active CARVEDILOL 25 MG ORAL TABLET 1 & 1/2 TAB po BID CARVEDILOL 85128883342 Active Robbie Busby MD Active NEXIUM 40 MG ORAL CAPSULE DELAYED RELEASE 1 cap by mouth daily ESOMEPRAZOLE MAGNESIUM 85663387769 Active Robbie uBsby MD Active PROTONIX 40 MG INTRAVENOUS SOLUTION RECONSTITUTED 1 po qday for acid reflux PANTOPRAZOLE SODIUM 28489295152 No Longer Active Galileonila Negro Active KEFLEX 500 MG ORAL CAPSULE 1 po TID x 10 days CEPHALEXIN 91925807488 No Longer Active Robbie Busby MD Active ALPRAZOLAM 2 MG ORAL TABLET 1 TAB PO BID ALPRAZOLAM 38313796227 Active Robbie Busby MD Active FENOFIBRATE 145 MG ORAL TABLET Take one by mouth daily FENOFIBRATE 91183448734 No Longer Active Robbie Busby MD Active SPIRONOLACTONE 50 MG ORAL TABLET 1 tablet by mouth twice a day SPIRONOLACTONE 90539760328 No Longer Active Robbie Busby MD Active HYDRALAZINE HCL 25 MG ORAL TABLET 1 tablet by mouth tid for hypertension 2013 HYDRALAZINE HCL 92728876153 No Longer Active Robbie Busby MD Active VIIBRYD 40 MG ORAL TABLET take 1 tab po qday for depression. 2014 VILAZODONE HCL 15847245835 No Longer Active Robbie Busby MD Active TERBINAFINE HCL 250 MG ORAL TABLET 1 tab po qday for foot infection TERBINAFINE HCL 91280155615 No Longer Active Robbie Busby MD Active GABAPENTIN 300 MG ORAL CAPSULE 1 po q hs for nerve pain GABAPENTIN 21415579712 Active Robbie Busby MD Active CHERATUSSIN AC 100-10 MG/5ML ORAL SOLUTION 7.5 mL PO q 4-6 hrs PRN cough 2014 GUAIFENESIN-CODEINE 09679555590 No Longer Active Robbie Busby MD Active AZITHROMYCIN 250 MG ORAL TABLET 2 tablets PO today---then, 1 tablet PO daily x 4 more days (and 1 optional refill) AZITHROMYCIN 22284230320 No Longer Active Robbie Busby MD Active NORVASC 10 MG ORAL TABLET 1 tablet by mouth daily AMLODIPINE BESYLATE 85738307039 No Longer Active Alex ALVAREZ Active ISOSORBIDE DINITRATE 30 MG ORAL TABLET Take one by mouth daily ISOSORBIDE DINITRATE 07732415607 No Longer Active Robbie Busby MD Active VIIBRYD 40 MG ORAL TABLET 1 TA B PO DAILY VILAZODONE HCL 49556940185 Active Robbie Busby MD Active ZITHROMAX 250 MG ORAL TABLET 2 po today, then 1 po q days 2-5 AZITHROMYCIN 38698877201 No Longer Active Robbie Busby MD Active DOXAZOSIN MESYLATE 4 MG ORAL TABLET Take one by mouth daily DOXAZOSIN MESYLATE 02570704230 Active Robbie Busby MD Active VENLAFAXINE HCL ER 150 MG ORAL TABLET EXTENDED RELEASE 24 HOUR Take one by mouth daily VENLAFAXINE HCL 57005796248 Active Robbie Busby MD Active LIPITOR 40 MG ORAL TABLET Take one by mouth daily ATORVASTATIN CALCIUM 91734506351 Active Robbie Busby MD Active ISOSORBIDE DINITRATE 30 MG ORAL TABLET Take one by mouth daily ISOSORBIDE DINITRATE 30 MG ORAL TABLET 656883 ISOSORBIDE DINITRATE Inactive NORVASC 10 MG ORAL TABLET 1 tablet by mouth daily NORVASC 10 MG ORAL TABLET 603537 AMLODIPINE BESYLATE Inactive AZITHROMYCIN 250 MG ORAL TABLET 2 tablets PO today---then, 1 tablet PO daily x 4 more days (and 1 optional refill) AZITHROMYCIN 250 MG ORAL TABLET 787649 AZITHROMYCIN Inactive CHERATUSSIN AC 100-10 MG/5ML ORAL SOLUTION 7.5 mL PO q 4-6 hrs PRN cough 2014 CHERATUSSIN AC 100-10 MG/5ML ORAL SOLUTION 422625 GUAIFENESIN-CODEINE Inactive VIIBRYD 40 MG ORAL TABLET take 1 tab po qday for depression. 2014 VIIBRYD 40 MG ORAL TABLET VILAZODONE HCL Inactive HYDRALAZINE HCL 25 MG ORAL TABLET 1 tablet by mouth tid for hypertension 2013 HYDRALAZINE HCL 25 MG ORAL TABLET 741383 HYDRALAZINE HCL Inactive SPIRONOLACTONE 50 MG ORAL TABLET 1 tablet by mouth twice a day SPIRONOLACTONE 50 MG ORAL TABLET 942444 SPIRONOLACTONE Inactive FENOFIBRATE 145 MG ORAL TABLET Take one by mouth daily FENOFIBRATE 145 MG ORAL TABLET 677529 FENOFIBRATE Inactive PROTONIX 40 MG INTRAVENOUS SOLUTION RECONSTITUTED 1 po qday for acid reflux PROTONIX 40 MG INTRAVENOUS SOLUTION RECONSTITUTED 228422 PANTOPRAZOLE SODIUM Inactive CEFDINIR 300 MG ORAL CAPSULE Take 1 cap po bid x 10 days CEFDINIR 300 MG ORAL CAPSULE 071042 CEFDINIR Inactive PREDNISONE 20 MG ORAL TABLET 1 tablet twice daily for 2 days, then 1 tablet once daily for 2 days PREDNISONE 20 MG ORAL TABLET 893690 PREDNISONE Inactive NYSTATIN 661517 UNIT/ML MOUTH/THROAT SUSPENSION 5mL po QID x 10 days NYSTATIN 873754 UNIT/ML MOUTH/THROAT SUSPENSION 783489 NYSTATIN Inactive BETADINE 10 % EXTERNAL SOLUTION 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 07/29 BETADINE 10 % EXTERNAL SOLUTION 4430273 POVIDONE-IODINE Inactive TRILEPTAL 150 MG ORAL TABLET 1 TAB PO Q HS TRILEPTAL 150 MG ORAL TABLET 765266 OXCARBAZEPINE Inactive LAMISIL 125 MG ORAL PACKET 1 TAB PO DAILY LAMISIL 125 MG ORAL PACKET TERBINAFINE HCL Inactive HYDROCHLOROTHIAZIDE TABLET Take one by mouth daily HYDROCHLOROTHIAZIDE TABLET HYDROCHLOROTHIAZIDE TABS Inactive HYDROCODONE-ACETAMINOPHEN 5-325 MG ORAL TABLET 1 tab by mouth BID prn back pain HYDROCODONE-ACETAMINOPHEN 5-325 MG ORAL TABLET 672140 HYDROCODONE-ACETAMINOPHEN Inactive HYDRALAZINE HCL 50 MG ORAL TABLET TWO BY MOUTH THREE TIMES DAILY HYDRALAZINE HCL 50 MG ORAL TABLET 887658 HYDRALAZINE HCL Inactive LEVAQUIN 500 MG ORAL TABLET 1 tablet by mouth daily for 7 days LEVAQUIN 500 MG ORAL TABLET 843766 LEVOFLOXACIN Inactive SPIRONOLACTONE 25 MG ORAL TABLET 4 tablets by mouth daily SPIRONOLACTONE 25 MG ORAL TABLET 243233 SPIRONOLACTONE Inactive MECLIZINE HCL 25 MG ORAL TABLET one 4 times a day as needed for dizziness MECLIZINE HCL 25 MG ORAL TABLET 355558 MECLIZINE HCL Inactive CLONIDINE HCL 0.2 MG ORAL TABLET 1 TAB BY MOUTH EVERY 8 HOURS CLONIDINE HCL 0.2 MG ORAL TABLET 214720 CLONIDINE HCL Inactive CYCLOBENZAPRINE HCL 10 MG ORAL TABLET 1 tablet by mouth three times daily as needed for muscle spasm/pain for 10 days CYCLOBENZAPRINE HCL 10 MG ORAL TABLET 658588 CYCLOBENZAPRINE HCL Inactive VITAMIN D3 17125 UNIT ORAL CAPSULE 2 CAPS PO WEEKLY VITAMIN D3 82019 UNIT ORAL CAPSULE CHOLECALCIFEROL Inactive FIORICET 50-300-40 MG ORAL CAPSULE take 1 tab po qday prn migraines. FIORICET 50-300-40 MG ORAL CAPSULE 280665 BUTALBITAL-APAP- CAFFEINE Inactive FLONASE 50 MCG/ACT NASAL SUSPENSION 1 spray each nostril twice daily for allergies and runny nose FLONASE 50 MCG/ACT NASAL SUSPENSION 4224145 FLUTICASONE PROPIONATE Inactive LORATADINE 10 MG ORAL TABLET 1 tablet by mouth daily for congestion and allergies. LORATADINE 10 MG ORAL TABLET 567596 LORATADINE Inactive NITROSTAT 0.4 MG SUBLINGUAL TABLET SUBLINGUAL PRN NITROSTAT 0.4 MG SUBLINGUAL TABLET SUBLINGUAL 999842 NITROGLYCERIN Inactive GUAIFENESIN ER 600 MG ORAL TABLET EXTENDED RELEASE 12 HOUR 1 tab po q am 2016 GUAIFENESIN ER 600 MG ORAL TABLET EXTENDED RELEASE 12 HOUR GUAIFENESIN Inactive CYCLOBENZAPRINE HCL 10 MG ORAL TABLET 1 po TID PRN muscle spasm/pain for 10 days CYCLOBENZAPRINE HCL 10 MG ORAL TABLET 983061 CYCLOBENZAPRINE HCL Inactive TOPIRAMATE 50 MG ORAL TABLET take 1 tab po BID for migraines. TOPIRAMATE 50 MG ORAL TABLET 163859 TOPIRAMATE Inactive PREDNISONE 20 MG ORAL TABLET two tabs by mouth today, then one tab by mouth days two and three PREDNISONE 20 MG ORAL TABLET 906208 PREDNISONE Inactive TOPROL XL 200 MG ORAL TABLET EXTENDED RELEASE 24 HOUR Take one by mouth daily TOPROL XL 200 MG ORAL TABLET EXTENDED RELEASE 24 HOUR METOPROLOL SUCCINATE Inactive CYCLOBENZAPRINE HCL 10 MG ORAL TABLET 1 tablet by mouth three times daily as needed for muscle spasm/pain CYCLOBENZAPRINE HCL 10 MG ORAL TABLET 311589 CYCLOBENZAPRINE HCL Inactive TOPIRAMATE 50 MG ORAL TABLET 1 po BID for migraines TOPIRAMATE 50 MG ORAL TABLET 304895 TOPIRAMATE Inactive TEMAZEPAM 15 MG ORAL CAPSULE 1 TAB PO Q HS TEMAZEPAM 15 MG ORAL CAPSULE 348029 TEMAZEPAM Inactive IMDUR 60 MG ORAL TABLET EXTENDED RELEASE 24 HOUR take 1 tab po qday for blood pressure IMDUR 60 MG ORAL TABLET EXTENDED RELEASE 24 HOUR ISOSORBIDE MONONITRATE Inactive HINURLAZ-QUG-0 0.3 MG/24HR TRANSDERMAL PATCH WEEKLY apply 2 patches q week for HTN KOIYIVDM-RLE-9 0.3 MG/24HR TRANSDERMAL PATCH WEEKLY 653795 CLONIDINE HCL Inactive ZITHROMAX 250 MG ORAL TABLET 2 po today, then 1 po q days 2-5 ZITHROMAX 250 MG ORAL TABLET 799897 AZITHROMYCIN Inactive TERBINAFINE HCL 250 MG ORAL TABLET 1 tab po qday for foot infection TERBINAFINE HCL 250 MG ORAL TABLET 447895 TERBINAFINE HCL Inactive KEFLEX 500 MG ORAL CAPSULE 1 po TID x 10 days KEFLEX 500 MG ORAL CAPSULE 231394 CEPHALEXIN Inactive BACTRIM DS 800-160 MG ORAL TABLET 1 tab by mouth twice daily 2015 BACTRIM DS 800-160 MG ORAL TABLET 724689 TRIMETHOPRIM- SULFAMETHOXAZOLE Inactive PREDNISONE 20 MG ORAL TABLET take 3 tabs daily for 3 days, 2 tabs daily for 3 days, 1 tab daily for 3 days, 1/2 tab daily for 4 days PREDNISONE 20 MG ORAL TABLET 920034 PREDNISONE Inactive AZITHROMYCIN 250 MG ORAL TABLET 2 po qd x 1 day, then 1 po qd x 4 days 09/20 AZITHROMYCIN 250 MG ORAL TABLET 535176 AZITHROMYCIN Inactive SINGULAIR 10 MG ORAL TABLET 1 po qday for allergies. SINGULAIR 10 MG ORAL TABLET 628902 MONTELUKAST SODIUM Inactive Advance Directives Directive Description [...] temperature weight E&M 211.50 [lb_av] Weight Measured Diagnostic Results Date Name Value Unit Range Description Lab Report: CBC W/DIFF, Comp. Metabolic Panel, CKI, UADIP W/MICRO, AUTO - Chemistry sodium, serum 142 mmol/L 892-248 1087/07/17 carbon dioxide, venous blood 28.2 mmol/L 21.0-32.0 [...] % 11.0-15.0 platelet count 185 THOUSAND/UL 10*3/mm3 164-752 3420/04/14 mean platelet volume 10.9 fL 7.5-12.5 Lab Report: Comp. Metabolic Panel - Chemistry sodium, serum 141 mmol/L 137-762 7478/02/13 carbon dioxide, venous blood 23.9 mmol/L 21.0-32.0 [...] 6.9 % 4.3-6.0 sodium, serum 139 mmol/L 733-187 8941/01/04 potassium, serum 3.9 mmol/L 3.5-5.2 chloride, serum 103 mmol/L 98-107 carbon dioxide, venous blood 26.9 mmol/L 21.0-32.0 blood glucose 106 mg/dL 65-110 calcium, serum 9.0 mg/dL 8.5-10.1 urea nitrogen, blood 20 mg/dL 7-18 creatinine, serum 1.46 mg/dL 0.60-1.30 Lab Report: LIPID PANEL, TSH/899, T4, FREE/866 - Chemistry cholesterol, serum 220 mg/dL 916-150 2985/04/14 HDL cholesterol, serum 30 mg/dL > OR=40 [...] 1.80 ng/mL 0.00-4.00 Lab Report: VITAMIN D, 25-HYDROXY/14371 - Chemistry vitamin D 25-hydroxy, serum 25 ng/mL 30-100 Office Visit: Confusion, dizziness after fall - Basic LDL target level 130 mg/dL Office Visit: Confusion, dizziness after fall - Chemistry HDL cholesterol, serum, target level 40 mg/dL triglyceride, target level 150 mg/dL cholesterol, target level 200 mg/dL Encounters Code Encounter Date Provider Facility CPT-89242 Level 4 Est. Patient 09:50:01 ASSISTANT STATISTICIAN Robbie Busby MD [facility] CPT-05126 Level 4 Est. Patient 09:42:08 ASSISTANT STATISTICIAN Robbie Busby MD [facility] CPT-02489 Level 4 Est. Patient 13:07:39 ASSISTANT STATISTICIAN Robbie Busby MD [facility] CPT-69019 Level 4 Est. Patient 15:23:44 ASSISTANT STATISTICIAN Desmond Diaz DO [facility] CPT-56166 Level 3 Est. Patient 15:40:49 CDT Robbie Busby MD [facility] CPT-41003 Level 4 Est. Patient 15:18:19 CDT Robbie Busby MD [facility] CPT-65913 Level 3 Est. Patient 09:00:37 CDT Rober Rodríguez APRN [facility] CPT-18837 Level 3 Est. Patient 16:07:10 CDT Robbie Busby MD [facility] CPT-13534 Level 4 Est. Patient 11:56:16 CDT Erin Miguelzane [facility] CPT-23961 Level 3 Est. Patient 17:48:02 CDT Robbie Busby MD [facility] CPT-58401 Level 4 Est. Patient 12:00:49 ASSISTANT STATISTICIAN Rober Rodolfoneha [facility] CPT-46554 Level 3 Est. Patient 09:16:37 CDT Robbie Busby MD [facility] CPT-74696 Level 3 Est. Patient 19:38:43 CDT Robbie Busby MD [facility]-64820 Level 3 Est. Patient 11:53:38 CDT Robbie Busby MD [facility] CPT-28743 Level 4 Est. Patient 12:52:22 CDT Rober Rodolfoneha [facility] CPT-94270 Level 4 Est. Patient 22:55:17 CDT Robbie Busby MD [facility] CPT-71137 Level 3 Est. Patient 12:38:24 CDT Desmond Diaz DO [facility] CPT-39318 Level 4 Est. Patient 11:25:03 ASSISTANT STATISTICIAN Robbie Busby MD [facility] CPT-43283 Level 4 Est. Patient 14:50:10 CDT Robbie Busby MD [facility] CPT-66023 Level 4 Est. Patient 23:30:43 CDT Robbie Busby MD [facility] CPT-87375 Level 4 Est. Patient 10:30:43 CDT Robbie Busby MD [facility] CPT-39491 Level 3 Est. Patient 17:08:12 CDT Alex ALVAREZ [facility] CPT-91835 Level 4 Est. Patient 17:51:38 CDT Robbie Busby MD [facility] CPT-76549 Level 4 Est. Patient 14:00:21 CDT Robbie Busby MD [facility] CPT-09299 Level 4 Est. Patient 12:46:48 CDT Robbie Busby MD [facility] CPT-38794 Level 4 Est. Patient 13:34:33 CDT Robbie Busby MD [facility] CPT-36361 Level 4 Est. Patient 16:58:28 CDT Robbie Busby MD [facility] CPT-68462 Level 3 Est. Patient 19:36:53 CDT Alex ALVAREZ [facility] CPT-04566 Level 3 Est. Patient 12:58:15 CDT Robbie Busby MD [facility] Procedures Code Procedure Name Date Entry Date Standard Description CPT-J1071 Depo Testosterone 200mg 16:10:29 [facility] CPT-57521 Abx/Therapy Injection 16:10:29 [facility] CPT-J1071 Depo Testosterone 200mg 16:13:47 [facility] CPT-39395 Abx/Therapy Injection 16:13:46 [facility] CPT-J1071 Depo Testosterone 200mg 15:33:58 ASSISTANT STATISTICIAN CPT-52123 Abx/Therapy Injection 15:33:58 [facility] CPT-J1071 Depo Testosterone 200mg 09:38:36 ASSISTANT STATISTICIAN CPT-97058 Abx/Therapy Injection 09:38:36 ASSISTANT STATISTICIAN CPT-J1071 Depo Testosterone 200mg 10:22:56 ASSISTANT STATISTICIAN CPT-53362 Abx/Therapy Injection 10:22:56 ASSISTANT STATISTICIAN CPT-J1071 Depo Testosterone 200mg 15:40:23 CDT CPT-05349 Abx/Therapy Injection 15:40:23 CDT CPT-J1071 Depo Testosterone 200mg 14:20:43 CDT CPT-61492 Abx/Therapy Injection 14:20:43 CDT CPT-J1071 Depo Testosterone 200mg 14:17:22 CDT CPT-46852 Abx/Therapy Injection 14:17:22 CDT CPT-J1071 Depo Testosterone 200mg 09:03:53 CDT CPT-53451 Abx/Therapy Injection 09:03:53 CDT CPT-G0439 [facility] Annual Wellness Exam 16:47:44 CDT CPT-J1071 Depo Testosterone 200mg 09:06:28 CDT CPT-35798 Abx/Therapy Injection 09:06:28 CDT CPT-J1071 Depo Testosterone 200mg 08:30:01 CDT CPT-98504 Abx/Therapy Injection 08:30:01 CDT CPT-J1071 Depo Testosterone 200mg 08:24:00 CDT CPT-41252 Abx/Therapy Injection 08:24:00 CDT CPT-07846 Venipuncture Draw Fee 14:39:06 CDT CPT-03429 Ribs unilateral 2V - XRAY USE ONLY 12:10:11 CDT CPT-03617 First Vx - Ix admin for Medicare patients 16:32:53 CDT CPT-77654 Boostrix Intramuscular Suspension 5-2.5-18.5 16:32:53 CDT CPT-47128 TB Skin Test 11:42:28 CDT CPT-38673 Tdap 7yrs or > 11:42:28 CDT CPT-J0696 Rocephin 1000 mg (Ceftriaxone) 17:43:43 ASSISTANT STATISTICIAN CPT-J1040 Depo Medrol 80 mg (Methyl Prednisolone Acetate) 17:43: 43 ASSISTANT STATISTICIAN CPT-J1100 Decadron 8mg (Dexamethasone) 17:43:42 ASSISTANT STATISTICIAN CPT-23652 Abx/Therapy Injection 17:43:42 ASSISTANT STATISTICIAN CPT-64457 Abx/Therapy Injection 17:43:42 ASSISTANT STATISTICIAN CPT-J1040 Depo Medrol 80 mg (Methyl Prednisolone Acetate) 09:43: 34 ASSISTANT STATISTICIAN CPT-J1100 Decadron 8mg (Dexamethasone) 09:43:34 ASSISTANT STATISTICIAN CPT-J0696 Rocephin 1gm Inj Solr 09:43:34 ASSISTANT STATISTICIAN CPT-98639 Wound Culture - LAB USE ONLY 14:00:21 CDT CPT-I/D I/D Abscess 09:16:37 CDT CPT-96334 Venipuncture Draw Fee 15:20:23 CDT CPT-91383 Microalbumin - LAB USE ONLY 16:02:19 CDT CPT-53112 CBC - LAB USE ONLY 16:02:19 CDT CPT-64875 Venipuncture Draw Fee 16:02:19 CDT CPT-G0438 Initial Annual Wellness Exam 08:10:28 CDT CPT-40968 Venipuncture Draw Fee 13:07:17 CDT CPT-G0008 Administration of Influenza Virus Vaccine 16:09:59 CDT CPT-37507 Fluzone Quadrivalent Intramuscular Suspension 0.5 ML 16: 09:59 CDT CPT-08785 Spec Collection and Handling Fee 15:05:50 CDT
--- OUTSIDE RECORDS SUMMARY | 2018-04-18 10:25 | XMS REPORT | Clinical Summary ---
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 Rober Rodríguez APRN Other malignant secondary hypertension Tachycardia 785.0 Active Rober Rodríguez APRN Tachycardia, unspecified Insect bite, infected 919.5 Active Robbie Busby MD Insect bite, nonvenomous, of other, multiple, and unspecified sites, infected Abscess, skin 682.9 Active Robbie Busby MD Cellulitis and abscess of unspecified sites URI 465.9 Active Rober Rodríguez PLOW MECHANIC Acute upper respiratory infections of unspecified site [...] Active Robbie Busby MD Unspecified chest pain Medication List Medication Instructions Start Date Stop Date Generic Name NDC Status Provider Patient Instruction OXYCODONE HCL ER 10 MG ORAL T12A 1 tab po 3 times qd. OXYCODONE HCL 21184614993 Active Robbie Busby MD Active NITROSTAT 0.4 MG SUBL PRN NITROGLYCERIN 12404951147 No Longer Active Robbie Busby MD Active LORATADINE 10 MG TABS 1 tablet by mouth daily for congestion and allergies. LORATADINE 68677127602 No Longer Active Robbie Busby MD Active FLONASE 50 MCG/ACT SUSP 1 spray each nostril twice daily for allergies and runny nose FLUTICASONE PROPIONATE 05234119803 No Longer Active Robbie Busby MD Active FIORICET 50-300-40 MG ORAL CAPS take 1 tab po qday prn migraines. [id number] 03072462852 No Longer Active Robbie Busby MD Active VITAMIN D3 57244 UNIT CAPS 2 CAPS PO WEEKLY CHOLECALCIFEROL 34632024969 No Longer Active Robbie Busby MD Active CYCLOBENZAPRINE HCL 10 MG TABS 1 tablet by mouth three times daily as needed for muscle spasm/pain for 10 days CYCLOBENZAPRINE HCL 90879764331 No Longer Active Robbie Busby MD Active PREDNISONE 20 MG TAB take 3 tabs daily for 3 days, 2 tabs daily for 3 days, 1 tab daily for 3 days, 1/2 tab daily for 4 days PREDNISONE 51939591825 No Longer Active Erin Garsia APRN Active CLONIDINE HCL 0.2 MG ORAL TABS 1 TAB BY MOUTH EVERY 8 HOURS 12/29 CLONIDINE HCL 84501397248 No Longer Active Erin Garsia APRN Active MECLIZINE HCL 25 MG TAB one 4 times a day as needed for dizziness MECLIZINE HCL 26397391208 No Longer Active Erin Garsia APRN Active SPIRONOLACTONE 25 MG TAB 4 tablets by mouth daily SPIRONOLACTONE 31589159715 No Longer Active Erin Garsia APRN Active LEVAQUIN 500 MG TAB 1 tablet by mouth daily for 7 days LEVOFLOXACIN 31134460938 No Longer Active Erin Garsia APRN Active BACTRIM DS 800-160 MG TAB 1 tab by mouth twice daily TRIMETHOPRIM-SULFAMETHOXAZOLE 19096866702 No Longer Active Robbie Busby MD Active HYDRALAZINE HCL 50 MG ORAL TABS TWO BY MOUTH THREE TIMES DAILY HYDRALAZINE HCL 98657004018 No Longer Active Rober Rodríguez APRN Active HYDROCODONE-ACETAMINOPHEN 5-325 MG TABS 1 tab by mouth BID prn back pain 2013 HYDROCODONE-ACETAMINOPHEN 20326163816 No Longer Active Andrellld Rodríguez APRN Active HYDROCHLOROTHIAZIDE TABS Take one by mouth daily HYDROCHLOROTHIAZIDE TABS 22211022724 No Longer Active Rober Rodríguez APRN Active LAMISIL 125 MG ORAL PACK 1 TAB PO DAILY TERBINAFINE HCL 90795721926 No Longer Active Jillina Franeha PLOW MECHANIC Active TRILEPTAL 150 MG ORAL TABS 1 TAB PO Q HS OXCARBAZEPINE 64424346122 No Longer Active 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 PLOW MECHANIC Active BETADINE 10 % EXT SOLN 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 POVIDONE-IODINE 98379977439 No Longer Active Jillina Rodolfozell PLOW MECHANIC Active NYSTATIN 203721 UNIT/ML M/T SUSP 5mL po QID x 10 days NYSTATIN 13450599632 No Longer Active Erin Garsia APRN Active PREDNISONE 20 MG TAB 1 tablet twice daily for 2 days, then 1 tablet once daily for 2 days PREDNISONE 40240586216 No Longer Active Robbie Busby MD Active CEFDINIR 300 MG ORAL CAPS Take 1 cap po bid x 10 days CEFDINIR 54610163864 No Longer Active Robbie Busby MD Active AMLODIPINE BESYLATE 10 MG TABS 1 tablet by mouth daily AMLODIPINE BESYLATE 58682116982 Active Robbie Busby MD Active CARVEDILOL 25 MG TABS 1 & 1/2 TAB po BID CARVEDILOL 73963226851 Active Robbie Busby MD Active NEXIUM 40 MG CPDR 1 cap by mouth daily ESOMEPRAZOLE MAGNESIUM 81492173180 Active Robbie Busby MD Active PROTONIX 40 MG SOLR 1 po qday for acid reflux PANTOPRAZOLE SODIUM 04323352609 No Longer Active Gali Raida Active KEFLEX 500 MG CAP 1 po TID x 10 days CEPHALEXIN 77406955957 No Longer Active Robbie Busby MD Active TOPIRAMATE 50 MG ORAL TABS take 1 tab po BID for migraines. TOPIRAMATE 98096407630 Active Robbie Busby MD Active TEMAZEPAM 15 MG ORAL CAPS 1 TAB PO Q HS TEMAZEPAM 92964426889 Active Robbie Busby MD Active ALPRAZOLAM 2 MG ORAL TABS 1 TAB PO BID ALPRAZOLAM 48016940864 Active Robbie Busby MD Active FENOFIBRATE 145 MG TABS Take one by mouth daily FENOFIBRATE 30554019575 No Longer Active Robbie Busby MD Active SPIRONOLACTONE 50 MG TABS 1 tablet by mouth twice a day SPIRONOLACTONE 77061059499 No Longer Active Robbie Busby MD Active HYDRALAZINE HCL 25 MG TABS 1 tablet by mouth tid for hypertension HYDRALAZINE HCL 86014059470 No Longer Active Robbie Busby MD Active VIIBRYD 40 MG TABS take 1 tab po qday for depression. VILAZODONE HCL 81169904781 No Longer Active Robbie Busby MD Active TERBINAFINE HCL 250 MG TABS 1 tab po qday for foot infection 2014 TERBINAFINE HCL 59532183178 No Longer Active Robbie Busby MD Active GABAPENTIN 300 MG CAPS 1 po q hs for nerve pain GABAPENTIN 97790955165 Active Robbie Busby MD Active CHERATUSSIN AC 100-10 MG/5ML ORAL SOLN 7.5 mL PO q 4-6 hrs PRN cough GUAIFENESIN-CODEINE 32932318934 No Longer Active Robbie Busby MD Active AZITHROMYCIN 250 MG ORAL TABS 2 tablets PO today---then, 1 tablet PO daily x 4 more days (and 1 optional refill) AZITHROMYCIN 15244317293 No Longer Active Robbie Busby MD Active NORVASC 10 MG TAB 1 tablet by mouth daily AMLODIPINE BESYLATE 87691785892 No Longer Active Alex ALVAREZ Active IMDUR 60 MG TAB CR take 1 tab po qday for blood pressure ISOSORBIDE MONONITRATE Active Robbie Busby MD Active ISOSORBIDE DINITRATE 30 MG TABS Take one by mouth daily ISOSORBIDE DINITRATE 35915471960 No Longer Active Robbie Busby MD Active VIIBRYD 40 MG TABS 1 TA B PO DAILY VILAZODONE HCL 79499969645 Active Robbie Busby MD Active ZITHROMAX 250 MG TAB 2 po today, then 1 po q days 2-5 AZITHROMYCIN 38286076053 No Longer Active Robbie Busby MD Active [id number] 0.3 MG/24HR PTWK apply 2 patches q week for HTN CLONIDINE HCL 24143180029 Active Robbie Busby MD Active DOXAZOSIN MESYLATE 4 MG TABS Take one by mouth daily DOXAZOSIN MESYLATE 32594377444 Active Robbie Busby MD Active TOPROL XL 200 MG [id number] Take one by mouth daily METOPROLOL SUCCINATE 84882909603 Active Robbie Busby MD Active VENLAFAXINE HCL ER 150 MG [id number]-HSX Take one by mouth daily VENLAFAXINE HCL 08958658145 Active Robbie Busby MD Active LIPITOR 40 MG TABS Take one by mouth daily ATORVASTATIN CALCIUM 81207890024 Active Robbie Busby MD Active ISOSORBIDE DINITRATE 30 MG TABS Take one by mouth daily ISOSORBIDE DINITRATE 30 MG TABS 168821 ISOSORBIDE DINITRATE Inactive NORVASC 10 MG TAB 1 tablet by mouth daily NORVASC 10 MG TAB 328269 AMLODIPINE BESYLATE Inactive AZITHROMYCIN 250 MG ORAL TABS 2 tablets PO today---then, 1 tablet PO daily x 4 more days (and 1 optional refill) AZITHROMYCIN 250 MG ORAL TABS 5499206 AZITHROMYCIN Inactive CHERATUSSIN AC 100-10 MG/5ML ORAL SOLN 7.5 mL PO q 4-6 hrs PRN cough CHERATUSSIN AC 100-10 MG/5ML ORAL SOLN 254535 GUAIFENESIN- CODEINE Inactive VIIBRYD 40 MG TABS take 1 tab po qday for depression. VIIBRYD 40 MG TABS VILAZODONE HCL Inactive HYDRALAZINE HCL 25 MG TABS 1 tablet by mouth tid for hypertension HYDRALAZINE HCL 25 MG TABS 615896 HYDRALAZINE HCL Inactive SPIRONOLACTONE 50 MG TABS 1 tablet by mouth twice a day SPIRONOLACTONE 50 MG TABS 619732 SPIRONOLACTONE Inactive FENOFIBRATE 145 MG TABS Take one by mouth daily FENOFIBRATE 145 MG TABS 318394 FENOFIBRATE Inactive PROTONIX 40 MG SOLR 1 po qday for acid reflux PROTONIX 40 MG SOLR 868656 PANTOPRAZOLE SODIUM Inactive CEFDINIR 300 MG ORAL CAPS Take 1 cap po bid x 10 days CEFDINIR 300 MG ORAL CAPS 826990 CEFDINIR Inactive PREDNISONE 20 MG TAB 1 tablet twice daily for 2 days, then 1 tablet once daily for 2 days PREDNISONE 20 MG TAB 508874 PREDNISONE Inactive NYSTATIN 530851 UNIT/ML M/T SUSP 5mL po QID x 10 days NYSTATIN 518495 UNIT/ML M/T SUSP 167515 NYSTATIN Inactive BETADINE 10 % EXT SOLN 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 BETADINE 10 % EXT SOLN 5527119 POVIDONE-IODINE Inactive TRILEPTAL 150 MG ORAL TABS 1 TAB PO Q HS TRILEPTAL 150 MG ORAL TABS 286006 OXCARBAZEPINE Inactive LAMISIL 125 MG ORAL PACK 1 TAB PO DAILY LAMISIL 125 MG ORAL PACK TERBINAFINE HCL Inactive HYDROCHLOROTHIAZIDE TABS Take one by mouth daily HYDROCHLOROTHIAZIDE TABS HYDROCHLOROTHIAZIDE TABS Inactive HYDROCODONE-ACETAMINOPHEN 5-325 MG TABS 1 tab by mouth BID prn back pain 2013 HYDROCODONE-ACETAMINOPHEN 5-325 MG TABS 101615 HYDROCODONE -ACETAMINOPHEN Inactive HYDRALAZINE HCL 50 MG ORAL TABS TWO BY MOUTH THREE TIMES DAILY HYDRALAZINE HCL 50 MG ORAL TABS 218677 HYDRALAZINE HCL Inactive LEVAQUIN 500 MG TAB 1 tablet by mouth daily for 7 days LEVAQUIN 500 MG TAB 140182 LEVOFLOXACIN Inactive SPIRONOLACTONE 25 MG TAB 4 tablets by mouth daily SPIRONOLACTONE 25 MG TAB 106736 SPIRONOLACTONE Inactive MECLIZINE HCL 25 MG TAB one 4 times a day as needed for dizziness MECLIZINE HCL 25 MG TAB 392022 MECLIZINE HCL Inactive CLONIDINE HCL 0.2 MG ORAL TABS 1 TAB BY MOUTH EVERY 8 HOURS 12/29 CLONIDINE HCL 0.2 MG ORAL TABS 428768 CLONIDINE HCL Inactive CYCLOBENZAPRINE HCL 10 MG TABS 1 tablet by mouth three times daily as needed for muscle spasm/pain for 10 days CYCLOBENZAPRINE HCL 10 MG TABS 636186 CYCLOBENZAPRINE HCL Inactive VITAMIN D3 13178 UNIT CAPS 2 CAPS PO WEEKLY VITAMIN D3 33904 UNIT CAPS CHOLECALCIFEROL Inactive FIORICET 50-300-40 MG ORAL CAPS take 1 tab po qday prn migraines. FIORICET 50-300-40 MG ORAL CAPS 379588 [id number] Inactive FLONASE 50 MCG/ACT SUSP 1 spray each nostril twice daily for allergies and runny nose FLONASE 50 MCG/ACT SUSP 9644982 FLUTICASONE PROPIONATE Inactive LORATADINE 10 MG TABS 1 tablet by mouth daily for congestion and allergies. LORATADINE 10 MG TABS 296613 LORATADINE Inactive NITROSTAT 0.4 MG SUBL PRN NITROSTAT 0.4 MG SUBL 526869 NITROGLYCERIN Inactive ZITHROMAX 250 MG TAB 2 po today, then 1 po q days 2-5 ZITHROMAX 250 MG TAB 8801996 AZITHROMYCIN Inactive TERBINAFINE HCL 250 MG TABS 1 tab po qday for foot infection 2014 TERBINAFINE HCL 250 MG TABS 786577 TERBINAFINE HCL Inactive KEFLEX 500 MG CAP 1 po TID x 10 days KEFLEX 500 MG CAP 429102 CEPHALEXIN Inactive BACTRIM DS 800-160 MG TAB 1 tab by mouth twice daily BACTRIM DS 800-160 MG TAB 126535 TRIMETHOPRIM-SULFAMETHOXAZOLE Inactive PREDNISONE 20 MG TAB take 3 tabs daily for 3 days, 2 tabs daily for 3 days, 1 tab daily for 3 days, 1/2 tab daily for 4 days PREDNISONE 20 MG TAB 689686 PREDNISONE Inactive Advance Directives Directive Description Start Date DISCUSSED WITH PATIENT -- NO DECISION MADE Vital Signs Date Name Value Unit Range Description blood pressure, diastolic - 8462-4 99 mm[Hg] BP [place] blood pressure, systolic - 8480-6 173 mm[Hg] BP sys height E&M - 8302-2 64 [in_us] Bdy height pulse rate E&M - 8867-4 90 /min Heart rate temperature E&M 97.5 [degF] Body temperature weight E&M - 3141-9 218 [lb_av] Weight Measured blood pressure, diastolic - [...] Range Description Lab Report: CBC - Hematology mean corpuscular hemoglobin, RBC 30.4 pg 27.0-31.2 mean corpuscular hemoglobin concentration, RBC 33.9 G/DL % 31.8- 35.4 red blood cell distribution width 15.4 % 11.6-14.8 platelet count 229 10^3/MM^3 10*3/mm3 254-704 4942/09/06 mean corpuscular volume, RBC 90 fL 80-97 hematocrit, blood 42.4 % 41.0-53.0 hemoglobin, blood 14.4 g/dL 13.5-17.5 erythrocyte (RBC) count 4.72 10^6/MM^3 10*6/mm3 4.69-6.13 leukocyte count, blood 9.7 10^3/MM^3 10*3/mm3 4.6-10.2 Lab Report: CBC-QUEST, COMPREHENSIVE METABOLIC PANEL - [...] % 11.0-15.0 platelet count 185 THOUSAND/UL 10*3/mm3 174-212 2030/04/14 mean platelet volume 10.9 fL 7.5-12.5 Lab Report: LIPID PANEL, TSH/899, T4, FREE/866 - Chemistry cholesterol, serum 220 mg/dL 006-249 2014/04/14 HDL cholesterol, serum 30 mg/dL > OR=40 triglyceride, serum, fasting 466 mg/dL <150 LDL cholesterol, serum SEE NOTE mg/dL (calc) mg/dL <130 cholesterol/HDL ratio, serum 7.3 (calc) < OR=5.0 Lab Report: MICROALB/CREAT W/RATIO - Chemistry albumin/creatinine ratio, urine < 30 mg/g mg/g{creat} 0-29 Lab Report: MICROALB/CREAT W/RATIO - Lab microalbumin, urine 80 0-19 Office Visit: Confusion, dizziness after fall - Basic LDL target level 130 mg/dL Office Visit: Confusion, dizziness after fall - Chemistry HDL cholesterol, serum, target level 40 mg/dL triglyceride, target level 150 mg/dL cholesterol, target level 200 mg/dL Encounters Code Encounter Date Provider Facility CPT-02316 Level 3 Est. Patient 16:07:10 CDT Robbie Busby MD [facility] CPT-78326 Level 4 Est. Patient 11:56:16 CDT Erin Garsia [facility] CPT-82142 Level 3 Est. Patient 17:48:02 CDT Robbie Busby MD [facility] CPT-69765 Level 4 Est. Patient 12:00:49 SILVER BRAZER Rober Rodríguez [facility] CPT-75653 Level 3 Est. Patient 09:16:37 CDT Robbie Busby MD [facility] CPT-61856 Level 3 Est. Patient 19:38:43 CDT Robbie Busby MD [facility] CPT-03119 Level 3 Est. Patient 11:53:38 CDT Robbie Busby MD [facility] CPT-29823 Level 4 Est. Patient 12:52:22 CDT Rober Rodríguez [facility] CPT-58019 Level 4 Est. Patient 22:55:17 CDT Robbie Busby MD [facility] CPT-76956 Level 3 Est. Patient 12:38:24 CDT Desmond Diaz DO [facility] CPT-48441 Level 4 Est. Patient 11:25:03 SILVER BRAZER Robbie Busby MD [facility] CPT-77540 Level 4 Est. Patient 14:50:10 CDT Robbie Busby MD [facility] CPT-55183 Level 4 Est. Patient 23:30:43 CDT Robbie Busby MD [facility] CPT-99615 Level 4 Est. Patient 10:30:43 CDT Robbie Busby MD [facility] CPT-06302 Level 3 Est. Patient 17:08:12 CDT Alex Shaw [facility] CPT-25597 Level 4 Est. Patient 17:51:38 CDT Robbie Busby MD [facility] CPT-29042 Level 4 Est. Patient 14:00:21 CDT Robbie Busby MD [facility] CPT-88092 Level 4 Est. Patient 12:46:48 CDT Robbie Busby MD [facility] CPT-16717 Level 4 Est. Patient 13:34:33 CDT Robbie Busby MD [facility] CPT-38611 Level 4 Est. Patient 16:58:28 CDT Robbie Busby MD [facility] CPT-83563 Level 3 Est. Patient 19:36:53 CDT Alex Shaw [facility] CPT-36615 Level 3 Est. Patient 12:58:15 CDT Robbie Busby MD [facility] Procedures Code Procedure Name Date Entry Date Standard Description CPT-49156 Ribs unilateral 2V - XRAY USE ONLY 12:10:11 CDT CPT-75951 First Vx - Ix admin for Medicare patients 16:32:53 CDT CPT-86905 Boostrix Intramuscular Suspension 5-2.5-18.5 16:32:53 CDT CPT-45142 TB Skin Test 11:42:28 CDT CPT-24579 Tdap 7yrs or > 11:42:28 CDT CPT-J0696 Rocephin 1000 mg (Ceftriaxone) 17:43:43 SILVER BRAZER CPT-J1040 Depo Medrol 80 mg (Methyl Prednisolone Acetate) 17:43: 43 SILVER BRAZER CPT-J1100 Decadron 8mg (Dexamethasone) 17:43:42 SILVER BRAZER CPT-02921 Abx/Therapy Injection 17:43:42 SILVER BRAZER CPT-19499 Abx/Therapy Injection 17:43:42 SILVER BRAZER CPT-J1040 Depo Medrol 80 mg (Methyl Prednisolone Acetate) 09:43: 34 SILVER BRAZER CPT-J1100 Decadron 8mg (Dexamethasone) 09:43:34 SILVER BRAZER CPT-J0696 Rocephin 1gm Inj Solr 09:43:34 SILVER BRAZER CPT-63254 Wound Culture - LAB USE ONLY 14:00:21 CDT CPT-I/D I/D Abscess 09:16:37 CDT CPT-39353 Venipuncture Draw Fee 15:20:23 CDT CPT-36156 Microalbumin - LAB USE ONLY 16:02:19 CDT CPT-05019 CBC - LAB USE ONLY 16:02:19 CDT CPT-96642 Venipuncture Draw Fee 16:02:19 CDT CPT-G0438 Initial Annual Wellness Exam 08:10:28 CDT CPT-50937 Venipuncture Draw Fee 13:07:17 CDT CPT-G0008 Administration of Influenza Virus Vaccine 16:09:59 CDT CPT-69697 Fluzone Quadrivalent Intramuscular Suspension 0.5 ML 16: 09:59 CDT CPT-40056 Spec Collection and Handling Fee 15:05:50 CDT
--- OUTSIDE RECORDS SUMMARY | 2018-04-18 10:27 | XMS REPORT | Clinical Summary ---
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 Desmond Diaz DO Other malignant secondary hypertension Tachycardia 785.0 Active Rober Rodríguez [employer] Tachycardia, unspecified Insect bite, infected 919.5 Resolved Desmond Diaz DO Insect bite, nonvenomous, of other, multiple, and unspecified sites, infected Abscess, skin 682.9 Resolved Desmond Diaz DO Cellulitis and abscess of unspecified sites URI 465.9 Resolved Desmond Diaz DO Acute upper respiratory infections of unspecified site Hypertension 401.9 Active Rober Rodríguez [employer] Unspecified essential hypertension Sinusitis - acute 461.9 [...] Hypogonadism, low testosterone 257.2 Active Erin Mai [employer] Other testicular hypofunction Low back pain, chronic [...] Busby MD Body Mass Index 37.0-37.9, adult Body Mass Index 36.0-36.9 Adult Active Robbie Busby MD Body Mass Index 36.0-36.9, adult Sinusitis ICD-461.9 Inactive 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 [employer] 2017 Low back pain, acute ICD-724.2 Inactive 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 [employer] Low back pain, chronic ICD-724.2 Inactive 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 [employer] Bronchitis, acute ICD-466.0 Inactive 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 [employer] Onychomycosis, toenails ICD-110.1 Inactive 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 [employer] Dizziness ICD-780.4 Inactive 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 [employer] 2017 Folliculitis ICD-704.8 Inactive 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 [employer] Pharyngitis-Acute ICD-462 Inactive 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 [employer] Fatigue ICD-780.79 Inactive 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 [employer] 09/20 Hypertension, secondary, malignant ICD-405.09 Inactive 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 [employer] Insect bite, infected ICD-919.5 Inactive 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 [employer] Abscess, skin ICD-682.9 Inactive 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 [employer] URI ICD-465.9 Inactive 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 [employer] Sinusitis - acute ICD-461.9 Inactive 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 [employer] Acute confusion ICD-293.0 Inactive 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 [employer] Headache ICD-784.0 Inactive 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 [employer] 09/20 Back pain ICD-724.5 Inactive 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 [employer] 2017 Rib pain, right sided ICD-786.50 Inactive 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 [employer] Myalgias ICD-729.1 Inactive 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 [employer] 09/20 URI ICD-465.9 Inactive 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 [employer] Bronchitis-Acute ICD-466.0 Inactive Desmond Diaz DO Medication List Medication Instructions Start Date Stop Date Generic Name NDC Status Provider Patient Instruction IMDUR 60 MG ORAL TABLET EXTENDED RELEASE 24 HOUR 1 po q day ISOSORBIDE MONONITRATE 36311104694 Active Emma Hernandez Active METOPROLOL SUCCINATE ER 200 MG ORAL TABLET EXTENDED RELEASE 24 HOUR take 1 tab po qday for high blood pressure and rapid pulse METOPROLOL SUCCINATE 90846039352 Active Robbie Busby MD Active JHTASYTG-UDC-5 0.3 MG/24HR TRANSDERMAL PATCH WEEKLY apply 2 patches q week for HTN CLONIDINE HCL 27288662617 No Longer Active Robbie Busby MD Active IMDUR 60 MG ORAL TABLET EXTENDED RELEASE 24 HOUR take 1 tab po qday for blood pressure ISOSORBIDE MONONITRATE 71749477441 No Longer Active Robbie Busby MD Active TEMAZEPAM 15 MG ORAL CAPSULE 1 TAB PO Q HS TEMAZEPAM 32910948475 No Longer Active Robbie Busby MD Active TOPIRAMATE 50 MG ORAL TABLET 1 po BID for migraines TOPIRAMATE 46864465748 No Longer Active Robbie Busby MD Active CYCLOBENZAPRINE HCL 10 MG ORAL TABLET 1 tablet by mouth three times daily as needed for muscle spasm/pain CYCLOBENZAPRINE HCL 99540549613 No Longer Active Robbie Busby MD Active TOPROL XL 200 MG ORAL TABLET EXTENDED RELEASE 24 HOUR Take one by mouth daily METOPROLOL SUCCINATE 80009448942 No Longer Active Robbie Busby MD Active METFORMIN HCL 500 MG ORAL TABLET 1 tablet by mouth daily for diabetes type 2 METFORMIN HCL 28374527100 Active Robbie Busby MD Active SINGULAIR 10 MG ORAL TABLET 1 po qday for allergies. MONTELUKAST SODIUM 09967551111 No Longer Active Robbie Busby MD Active PREDNISONE 20 MG ORAL TABLET two tabs by mouth today, then one tab by mouth days two and three PREDNISONE 10034833478 No Longer Active Robbie Busby MD Active AZITHROMYCIN 250 MG ORAL TABLET 2 po qd x 1 day, then 1 po qd x 4 days 09/20 AZITHROMYCIN 72204396932 No Longer Active Desmond Diaz DO Active TOPIRAMATE 50 MG ORAL TABLET take 1 tab po BID for migraines. TOPIRAMATE 68071376161 No Longer Active Desmond Diaz DO Active CYCLOBENZAPRINE HCL 10 MG ORAL TABLET 1 po TID PRN muscle spasm/pain for 10 days CYCLOBENZAPRINE HCL 00425692261 No Longer Active Desmond Diaz DO Active GUAIFENESIN ER 600 MG ORAL TABLET EXTENDED RELEASE 12 HOUR 1 tab po q am 2016 GUAIFENESIN 72972219067 No Longer Active Robbie Busby MD Active DIVALPROEX SODIUM ER 500 MG ORAL TABLET EXTENDED RELEASE 24 HOUR Once daily DIVALPROEX SODIUM 99798158524 Active Robbie Busby MD Active DEPO-TESTOSTERONE 200 MG/ML INTRAMUSCULAR SOLUTION 1 IM Injections every 2 weeks for low testosterone TESTOSTERONE CYPIONATE 41859134828 Active Zulema Blank LPN Active FLUTICASONE PROPIONATE 50 MCG/ACT NASAL SUSPENSION 2 sprays per nostril bid for 1 week, then 1 spray bid FLUTICASONE PROPIONATE 94196406354 Active Rober Rodríguez APRN Active HYDRALAZINE HCL 25 MG ORAL TABLET Take 1 tab BID. HYDRALAZINE HCL 14636712222 Active Rober Rodríguez APRN Active VITAMIN D3 62988 UNIT ORAL TABLET 2 po weekly CHOLECALCIFEROL 77237670624 Active Robbie Busby MD Active OXYCODONE HCL ER 10 MG ORAL TABLET ER 12 HOUR ABUSE-DETERRENT 1 tab po 3 times qd. OXYCODONE HCL 66569257835 Active Robbie Busby MD Active NITROSTAT 0.4 MG SUBLINGUAL TABLET SUBLINGUAL PRN NITROGLYCERIN 50242362801 No Longer Active Robbie Busby MD Active LORATADINE 10 MG ORAL TABLET 1 tablet by mouth daily for congestion and allergies. LORATADINE 58135696364 No Longer Active Robbie Busby MD Active FLONASE 50 MCG/ACT NASAL SUSPENSION 1 spray each nostril twice daily for allergies and runny nose FLUTICASONE PROPIONATE 51406440267 No Longer Active Robbie Busby MD Active FIORICET 50-300-40 MG ORAL CAPSULE take 1 tab po qday prn migraines. [id number] 75700879129 No Longer Active Robbie Busby MD Active VITAMIN D3 35436 UNIT ORAL CAPSULE 2 CAPS PO WEEKLY CHOLECALCIFEROL 55377213202 No Longer Active Robbie Busby MD Active CYCLOBENZAPRINE HCL 10 MG ORAL TABLET 1 tablet by mouth three times daily as needed for muscle spasm/pain for 10 days CYCLOBENZAPRINE HCL 20574391130 No Longer Active Robbie Busby MD Active PREDNISONE 20 MG ORAL TABLET take 3 tabs daily for 3 days, 2 tabs daily for 3 days, 1 tab daily for 3 days, 1/2 tab daily for 4 days PREDNISONE 17281726917 No Longer Active Erin Mai APRN Active CLONIDINE HCL 0.2 MG ORAL TABLET 1 TAB BY MOUTH EVERY 8 HOURS CLONIDINE HCL 86327646412 No Longer Active Erin Arell [employer] Active MECLIZINE HCL 25 MG ORAL TABLET one 4 times a day as needed for dizziness MECLIZINE HCL 54291597627 No Longer Active Erin Arell [employer] Active SPIRONOLACTONE 25 MG ORAL TABLET 4 tablets by mouth daily SPIRONOLACTONE 48478975273 No Longer Active Erin Arell [employer] Active LEVAQUIN 500 MG ORAL TABLET 1 tablet by mouth daily for 7 days LEVOFLOXACIN 97677221842 No Longer Active Erin Arell [employer] Active BACTRIM DS 800-160 MG ORAL TABLET 1 tab by mouth twice daily 2015 TRIMETHOPRIM-SULFAMETHOXAZOLE 80832962364 No Longer Active Robbie Busby MD Active HYDRALAZINE HCL 50 MG ORAL TABLET TWO BY MOUTH THREE TIMES DAILY HYDRALAZINE HCL 45593496502 No Longer Active Jillina Frakierstenl [employer] Active HYDROCODONE-ACETAMINOPHEN 5-325 MG ORAL TABLET 1 tab by mouth BID prn back pain HYDROCODONE-ACETAMINOPHEN 41679824730 No Longer Active 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 [employer] Active HYDROCHLOROTHIAZIDE TABLET Take one by mouth daily HYDROCHLOROTHIAZIDE TABS 85708680688 No Longer Active 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 [employer] Active LAMISIL 125 MG ORAL PACKET 1 TAB PO DAILY TERBINAFINE HCL 01492995212 No Longer Active 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 [employer] Active TRILEPTAL 150 MG ORAL TABLET 1 TAB PO Q HS OXCARBAZEPINE 01260501951 No Longer Active 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 [employer] Active BETADINE 10 % EXTERNAL SOLUTION 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 07/29 POVIDONE-IODINE 49676468060 No Longer Active 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 [employer] Active NYSTATIN 525385 UNIT/ML MOUTH/THROAT SUSPENSION 5mL po QID x 10 days NYSTATIN 24008040411 No Longer Active Erin Mai APRN Active PREDNISONE 20 MG ORAL TABLET 1 tablet twice daily for 2 days, then 1 tablet once daily for 2 days PREDNISONE 38542957439 No Longer Active Robbie Busby MD Active CEFDINIR 300 MG ORAL CAPSULE Take 1 cap po bid x 10 days CEFDINIR 41882804080 No Longer Active Robbie Busby MD Active AMLODIPINE BESYLATE 10 MG ORAL TABLET 1 tablet by mouth daily AMLODIPINE BESYLATE 17205624637 Active Robbie Busby MD Active CARVEDILOL 25 MG ORAL TABLET 1 & 1/2 TAB po BID CARVEDILOL 28080726016 Active Robbie Busby MD Active NEXIUM 40 MG ORAL CAPSULE DELAYED RELEASE 1 cap by mouth daily ESOMEPRAZOLE MAGNESIUM 37156228630 Active Robbie Busby MD Active PROTONIX 40 MG INTRAVENOUS SOLUTION RECONSTITUTED 1 po qday for acid reflux PANTOPRAZOLE SODIUM 67696783355 No Longer Active Gali Raida Active KEFLEX 500 MG ORAL CAPSULE 1 po TID x 10 days CEPHALEXIN 61441404755 No Longer Active Robbie Busby MD Active ALPRAZOLAM 2 MG ORAL TABLET 1 TAB PO BID ALPRAZOLAM 40705485701 Active Robbie Busby MD Active FENOFIBRATE 145 MG ORAL TABLET Take one by mouth daily FENOFIBRATE 46438562410 No Longer Active Robbie Busby MD Active SPIRONOLACTONE 50 MG ORAL TABLET 1 tablet by mouth twice a day SPIRONOLACTONE 46150018236 No Longer Active Robbie Busby MD Active HYDRALAZINE HCL 25 MG ORAL TABLET 1 tablet by mouth tid for hypertension 2013 HYDRALAZINE HCL 75694288181 No Longer Active Robbie Busby MD Active VIIBRYD 40 MG ORAL TABLET take 1 tab po qday for depression. 2014 VILAZODONE HCL 76301497007 No Longer Active Robbie Busby MD Active TERBINAFINE HCL 250 MG ORAL TABLET 1 tab po qday for foot infection TERBINAFINE HCL 45179979548 No Longer Active Robbie Busby MD Active GABAPENTIN 300 MG ORAL CAPSULE 1 po q hs for nerve pain GABAPENTIN 95898953815 Active Robbie Busby MD Active CHERATUSSIN AC 100-10 MG/5ML ORAL SOLUTION 7.5 mL PO q 4-6 hrs PRN cough 2014 GUAIFENESIN-CODEINE 11330861735 No Longer Active Robbie Busby MD Active AZITHROMYCIN 250 MG ORAL TABLET 2 tablets PO today---then, 1 tablet PO daily x 4 more days (and 1 optional refill) AZITHROMYCIN 37083894420 No Longer Active Robbie Busby MD Active NORVASC 10 MG ORAL TABLET 1 tablet by mouth daily AMLODIPINE BESYLATE 63909109719 No Longer Active Alex ALVAREZ Active ISOSORBIDE DINITRATE 30 MG ORAL TABLET Take one by mouth daily ISOSORBIDE DINITRATE 91887957218 No Longer Active Robbie Busby MD Active VIIBRYD 40 MG ORAL TABLET 1 TA B PO DAILY VILAZODONE HCL 87605362849 Active Robbie Busby MD Active ZITHROMAX 250 MG ORAL TABLET 2 po today, then 1 po q days 2-5 AZITHROMYCIN 56993150407 No Longer Active Robbie Busby MD Active DOXAZOSIN MESYLATE 4 MG ORAL TABLET Take one by mouth daily DOXAZOSIN MESYLATE 99561037977 Active Robbie Busby MD Active VENLAFAXINE HCL ER 150 MG ORAL TABLET EXTENDED RELEASE 24 HOUR Take one by mouth daily VENLAFAXINE HCL 98927812875 Active Robbie Busby MD Active LIPITOR 40 MG ORAL TABLET Take one by mouth daily ATORVASTATIN CALCIUM 23199446572 Active Robibe Busby MD Active ISOSORBIDE DINITRATE 30 MG ORAL TABLET Take one by mouth daily ISOSORBIDE DINITRATE 30 MG ORAL TABLET 619988 ISOSORBIDE DINITRATE Inactive NORVASC 10 MG ORAL TABLET 1 tablet by mouth daily NORVASC 10 MG ORAL TABLET 414409 AMLODIPINE BESYLATE Inactive AZITHROMYCIN 250 MG ORAL TABLET 2 tablets PO today---then, 1 tablet PO daily x 4 more days (and 1 optional refill) AZITHROMYCIN 250 MG ORAL TABLET 148689 AZITHROMYCIN Inactive CHERATUSSIN AC 100-10 MG/5ML ORAL SOLUTION 7.5 mL PO q 4-6 hrs PRN cough 2014 CHERATUSSIN AC 100-10 MG/5ML ORAL SOLUTION 224495 GUAIFENESIN-CODEINE Inactive VIIBRYD 40 MG ORAL TABLET take 1 tab po qday for depression. 2014 VIIBRYD 40 MG ORAL TABLET VILAZODONE HCL Inactive HYDRALAZINE HCL 25 MG ORAL TABLET 1 tablet by mouth tid for hypertension 2013 HYDRALAZINE HCL 25 MG ORAL TABLET 440535 HYDRALAZINE HCL Inactive SPIRONOLACTONE 50 MG ORAL TABLET 1 tablet by mouth twice a day SPIRONOLACTONE 50 MG ORAL TABLET 860396 SPIRONOLACTONE Inactive FENOFIBRATE 145 MG ORAL TABLET Take one by mouth daily FENOFIBRATE 145 MG ORAL TABLET 015961 FENOFIBRATE Inactive PROTONIX 40 MG INTRAVENOUS SOLUTION RECONSTITUTED 1 po qday for acid reflux PROTONIX 40 MG INTRAVENOUS SOLUTION RECONSTITUTED 016874 PANTOPRAZOLE SODIUM Inactive CEFDINIR 300 MG ORAL CAPSULE Take 1 cap po bid x 10 days CEFDINIR 300 MG ORAL CAPSULE 345276 CEFDINIR Inactive PREDNISONE 20 MG ORAL TABLET 1 tablet twice daily for 2 days, then 1 tablet once daily for 2 days PREDNISONE 20 MG ORAL TABLET 856002 PREDNISONE Inactive NYSTATIN 735093 UNIT/ML MOUTH/THROAT SUSPENSION 5mL po QID x 10 days NYSTATIN 316005 UNIT/ML MOUTH/THROAT SUSPENSION 530610 NYSTATIN Inactive BETADINE 10 % EXTERNAL SOLUTION 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 07/29 BETADINE 10 % EXTERNAL SOLUTION 7831756 POVIDONE-IODINE Inactive TRILEPTAL 150 MG ORAL TABLET 1 TAB PO Q HS TRILEPTAL 150 MG ORAL TABLET 437240 OXCARBAZEPINE Inactive LAMISIL 125 MG ORAL PACKET 1 TAB PO DAILY LAMISIL 125 MG ORAL PACKET TERBINAFINE HCL Inactive HYDROCHLOROTHIAZIDE TABLET Take one by mouth daily HYDROCHLOROTHIAZIDE TABLET HYDROCHLOROTHIAZIDE TABS Inactive HYDROCODONE-ACETAMINOPHEN 5-325 MG ORAL TABLET 1 tab by mouth BID prn back pain HYDROCODONE-ACETAMINOPHEN 5-325 MG ORAL TABLET 752629 HYDROCODONE-ACETAMINOPHEN Inactive HYDRALAZINE HCL 50 MG ORAL TABLET TWO BY MOUTH THREE TIMES DAILY HYDRALAZINE HCL 50 MG ORAL TABLET 428492 HYDRALAZINE HCL Inactive LEVAQUIN 500 MG ORAL TABLET 1 tablet by mouth daily for 7 days LEVAQUIN 500 MG ORAL TABLET 975867 LEVOFLOXACIN Inactive SPIRONOLACTONE 25 MG ORAL TABLET 4 tablets by mouth daily SPIRONOLACTONE 25 MG ORAL TABLET 702067 SPIRONOLACTONE Inactive MECLIZINE HCL 25 MG ORAL TABLET one 4 times a day as needed for dizziness MECLIZINE HCL 25 MG ORAL TABLET 419451 MECLIZINE HCL Inactive CLONIDINE HCL 0.2 MG ORAL TABLET 1 TAB BY MOUTH EVERY 8 HOURS CLONIDINE HCL 0.2 MG ORAL TABLET 333395 CLONIDINE HCL Inactive CYCLOBENZAPRINE HCL 10 MG ORAL TABLET 1 tablet by mouth three times daily as needed for muscle spasm/pain for 10 days CYCLOBENZAPRINE HCL 10 MG ORAL TABLET 196970 CYCLOBENZAPRINE HCL Inactive VITAMIN D3 54049 UNIT ORAL CAPSULE 2 CAPS PO WEEKLY VITAMIN D3 06589 UNIT ORAL CAPSULE CHOLECALCIFEROL Inactive FIORICET 50-300-40 MG ORAL CAPSULE take 1 tab po qday prn migraines. FIORICET 50-300-40 MG ORAL CAPSULE 983410 BUTALBITAL-APAP- CAFFEINE Inactive FLONASE 50 MCG/ACT NASAL SUSPENSION 1 spray each nostril twice daily for allergies and runny nose FLONASE 50 MCG/ACT NASAL SUSPENSION 9978404 FLUTICASONE PROPIONATE Inactive LORATADINE 10 MG ORAL TABLET 1 tablet by mouth daily for congestion and allergies. LORATADINE 10 MG ORAL TABLET 681442 LORATADINE Inactive NITROSTAT 0.4 MG SUBLINGUAL TABLET SUBLINGUAL PRN NITROSTAT 0.4 MG SUBLINGUAL TABLET SUBLINGUAL 269257 NITROGLYCERIN Inactive GUAIFENESIN ER 600 MG ORAL TABLET EXTENDED RELEASE 12 HOUR 1 tab po q am 2016 GUAIFENESIN ER 600 MG ORAL TABLET EXTENDED RELEASE 12 HOUR GUAIFENESIN Inactive CYCLOBENZAPRINE HCL 10 MG ORAL TABLET 1 po TID PRN muscle spasm/pain for 10 days CYCLOBENZAPRINE HCL 10 MG ORAL TABLET 459731 CYCLOBENZAPRINE HCL Inactive TOPIRAMATE 50 MG ORAL TABLET take 1 tab po BID for migraines. TOPIRAMATE 50 MG ORAL TABLET 681348 TOPIRAMATE Inactive PREDNISONE 20 MG ORAL TABLET two tabs by mouth today, then one tab by mouth days two and three PREDNISONE 20 MG ORAL TABLET 862423 PREDNISONE Inactive TOPROL XL 200 MG ORAL TABLET EXTENDED RELEASE 24 HOUR Take one by mouth daily TOPROL XL 200 MG ORAL TABLET EXTENDED RELEASE 24 HOUR METOPROLOL SUCCINATE Inactive CYCLOBENZAPRINE HCL 10 MG ORAL TABLET 1 tablet by mouth three times daily as needed for muscle spasm/pain CYCLOBENZAPRINE HCL 10 MG ORAL TABLET 210856 CYCLOBENZAPRINE HCL Inactive TOPIRAMATE 50 MG ORAL TABLET 1 po BID for migraines TOPIRAMATE 50 MG ORAL TABLET 071541 TOPIRAMATE Inactive TEMAZEPAM 15 MG ORAL CAPSULE 1 TAB PO Q HS TEMAZEPAM 15 MG ORAL CAPSULE 721810 TEMAZEPAM Inactive IMDUR 60 MG ORAL TABLET EXTENDED RELEASE 24 HOUR take 1 tab po qday for blood pressure IMDUR 60 MG ORAL TABLET EXTENDED RELEASE 24 HOUR ISOSORBIDE MONONITRATE Inactive IBAGALHT-GDZ-1 0.3 MG/24HR TRANSDERMAL PATCH WEEKLY apply 2 patches q week for HTN MHIZBCAK-WXC-2 0.3 MG/24HR TRANSDERMAL PATCH WEEKLY 369078 CLONIDINE HCL Inactive ZITHROMAX 250 MG ORAL TABLET 2 po today, then 1 po q days 2-5 ZITHROMAX 250 MG ORAL TABLET 834074 AZITHROMYCIN Inactive TERBINAFINE HCL 250 MG ORAL TABLET 1 tab po qday for foot infection TERBINAFINE HCL 250 MG ORAL TABLET 177462 TERBINAFINE HCL Inactive KEFLEX 500 MG ORAL CAPSULE 1 po TID x 10 days KEFLEX 500 MG ORAL CAPSULE 492259 CEPHALEXIN Inactive BACTRIM DS 800-160 MG ORAL TABLET 1 tab by mouth twice daily 2015 BACTRIM DS 800-160 MG ORAL TABLET 354721 TRIMETHOPRIM- SULFAMETHOXAZOLE Inactive PREDNISONE 20 MG ORAL TABLET take 3 tabs daily for 3 days, 2 tabs daily for 3 days, 1 tab daily for 3 days, 1/2 tab daily for 4 days PREDNISONE 20 MG ORAL TABLET 099498 PREDNISONE Inactive AZITHROMYCIN 250 MG ORAL TABLET 2 po qd x 1 day, then 1 po qd x 4 days 09/20 AZITHROMYCIN 250 MG ORAL TABLET 228177 AZITHROMYCIN Inactive SINGULAIR 10 MG ORAL TABLET 1 po qday for allergies. SINGULAIR 10 MG ORAL TABLET 250352 MONTELUKAST SODIUM Inactive Advance Directives Directive Description Start Date DISCUSSED WITH PATIENT -- NO DECISION MADE Vital Signs Date Name Value Unit Range Description blood pressure, diastolic 103 mm[Hg] BP [place] blood pressure, systolic 158 mm[Hg] BP sys height E&M 64 [in_us] Bdy height pulse rate E&M 85 /min Heart rate temperature E&M 98.5 [degF] Body temperature weight E&M 214.50 [lb_av] Weight Measured blood pressure, diastolic 101 mm[Hg] BP del [...] AUTO - Chemistry sodium, serum 142 mmol/L 225-262 1099/07/17 carbon dioxide, venous blood 28.2 mmol/L 21.0-32.0 [...] Panel, CKI, UADIP W/MICRO, AUTO - Urinalysis urine color Yellow Colorless;Lightyellow;Straw;Yellow appearance, urine Clear Clear specific gravity, urine 1.020 1.000-1.030 pH, urine, semiquantitative 5.0 5.0-8.5 urobilinogen, urine, semiquantitative (dipstick) 0.2 E.U./dL Normal leukocyte esterase, urine, by dipstick Negative Negative nitrite, urine, semiquantitative Negative Negative glucose, urine, semiquantitative Negative Negative ketones, urine, by test strip Negative Negative bilirubin, urine Negative Negative Lab Report: CBC-QUEST, COMPREHENSIVE METABOLIC PANEL - [...] % 11.0-15.0 platelet count 185 THOUSAND/UL 10*3/mm3 651-176 8108/04/14 mean platelet volume 10.9 fL 7.5-12.5 Lab Report: Comp. Metabolic Panel - Chemistry sodium, serum 141 mmol/L 676-779 6339/02/13 carbon dioxide, venous blood 23.9 mmol/L 21.0-32.0 [...] 6.9 % 4.3-6.0 sodium, serum 139 mmol/L 490-665 0642/01/04 potassium, serum 3.9 mmol/L 3.5-5.2 chloride, serum 103 mmol/L 98-107 carbon dioxide, venous blood 26.9 mmol/L 21.0-32.0 blood glucose 106 mg/dL 65-110 calcium, serum 9.0 mg/dL 8.5-10.1 urea nitrogen, blood 20 mg/dL 7-18 creatinine, serum 1.46 mg/dL 0.60-1.30 Lab Report: LIPID PANEL, TSH/899, T4, FREE/866 - Chemistry cholesterol, serum 220 mg/dL 541-616 4343/04/14 HDL cholesterol, serum 30 mg/dL > OR=40 [...] 1.80 ng/mL 0.00-4.00 Lab Report: VITAMIN D, 25-HYDROXY/54875 - Chemistry vitamin D 25-hydroxy, serum 25 ng/mL 30-100 Office Visit: Confusion, dizziness after fall - Basic LDL target level 130 mg/dL Office Visit: Confusion, dizziness after fall - Chemistry HDL cholesterol, serum, target level 40 mg/dL triglyceride, target level 150 mg/dL cholesterol, target level 200 mg/dL Encounters Code Encounter Date Provider Facility CPT-01992 Level 3 Est. Patient 16:04:17 CDT Robbie Busby MD [facility] CPT-79092 Level 4 Est. Patient 09:50:01 [employer] Robbie Busby MD [facility] CPT-67223 Level 4 Est. Patient 09:42:08 [employer] Robbie Busby MD [facility] CPT-76598 Level 4 Est. Patient 13:07:39 [employer] Robbie Busby MD [facility] CPT-03324 Level 4 Est. Patient 15:23:44 [employer] Desmond Diaz DO [facility] CPT-90535 Level 3 Est. Patient 15:40:49 CDT Robbie Busby MD [facility] CPT-99945 Level 4 Est. Patient 15:18:19 CDT Robbie Busby MD [facility] CPT-62069 Level 3 Est. Patient 09:00:37 CDT [address]rí[address]uez [facility] CPT-86573 Level 3 Est. Patient 16:07:10 CDT Robbie Busby MD [facility] CPT-83801 Level 4 Est. Patient 11:56:[address] [facility] CPT-58843 Level 3 Est. Patient 17:48:02 CDT Robbie Busby MD [facility] CPT-85655 Level 4 Est. Patient 12:00:49 [employer] Rober Rodríguez [facility] CPT-39840 Level 3 Est. Patient 09:16:37 CDT Robbie Busby MD [facility] CPT-32663 Level 3 Est. Patient 19:38:43 CDT Robbie Busby MD [facility] CPT-15653 Level 3 Est. Patient 11:53:38 CDT Robbie Busby MD [facility] CPT-34605 Level 4 Est. Patient 12:52:[address]rí[address] [facility] CPT-13955 Level 4 Est. Patient 22:55:17 CDT Robbie Busby MD [facility] CPT-86658 Level 3 Est. Patient 12:38:24 CDT Desmond Diaz DO [facility] CPT-83748 Level 4 Est. Patient 11:25:03 [employer] Robbie Busby MD [facility] CPT-70966 Level 4 Est. Patient 14:50:10 CDT Robbie Busby MD [facility] CPT-40775 Level 4 Est. Patient 23:30:43 CDT Robbie Busby MD [facility] CPT-73624 Level 4 Est. Patient 10:30:43 CDT Robbie Busby MD [facility] CPT-90640 Level 3 Est. Patient 17:08:12 CDT Alex ALVAREZ [facility] CPT-51346 Level 4 Est. Patient 17:51:38 CDT Robbie Busby MD [facility] CPT-11295 Level 4 Est. Patient 14:00:21 CDT Robbie Busby MD [facility] CPT-42744 Level 4 Est. Patient 12:46:48 CDT Robbie Busby MD [facility] CPT-83284 Level 4 Est. Patient 13:34:33 CDT Robbie Busby MD [facility] CPT-95082 Level 4 Est. Patient 16:58:28 CDT Robbie Busby MD [facility] CPT-52745 Level 3 Est. Patient 19:36:53 CDT Alex Shaw [facility] CPT-34176 Level 3 Est. Patient 12:58:15 CDT Robbie Busby MD [facility] Procedures Code Procedure Name Date Entry Date Standard Description CPT-J1100 Decadron 8mg (Dexamethasone) 16:04:17 CDT CPT-J1040 Depo Medrol 80 mg (Methyl Prednisolone Acetate) 16:04: 17 CDT CPT-J1071 Depo Testosterone 200mg 08:56:46 CDT CPT-50270 Abx/Therapy Injection 08:56:45 CDT CPT-J1071 Depo Testosterone 200mg 08:26:27 CDT CPT-52335 Abx/Therapy Injection 08:26:27 CDT CPT-J1071 Depo Testosterone 200mg 10:27:10 CDT CPT-32748 Abx/Therapy Injection 10:27:10 CDT CPT-J1071 Depo Testosterone 200mg 16:10:29 [employer] CPT-57910 Abx/Therapy Injection 16:10:29 [employer] CPT-J1071 Depo Testosterone 200mg 16:13:47 HOUSEHOLD [facility] CPT-23921 Abx/Therapy Injection 16:13:46 [facility] CPT-J1071 Depo Testosterone 200mg 15:33:58 [facility] CPT-34285 Abx/Therapy Injection 15:33:58 [facility] CPT-J1071 Depo Testosterone 200mg 09:38:36 [facility] CPT-62930 Abx/Therapy Injection 09:38:36 [facility] CPT-J1071 Depo Testosterone 200mg 10:22:56 [facility] CPT-11201 Abx/Therapy Injection 10:22:56 [facility] CPT-J1071 Depo Testosterone 200mg 15:40:23 CDT CPT-00526 Abx/Therapy Injection 15:40:23 CDT CPT-J1071 Depo Testosterone 200mg 14:20:43 CDT CPT-70990 Abx/Therapy Injection 14:20:43 CDT CPT-J1071 Depo Testosterone 200mg 14:17:22 CDT CPT-92049 Abx/Therapy Injection 14:17:22 CDT CPT-J1071 Depo Testosterone 200mg 09:03:53 CDT CPT-26822 Abx/Therapy Injection 09:03:53 CDT CPT-G0439 [facility] Annual Wellness Exam 16:47:44 CDT CPT-J1071 Depo Testosterone 200mg 09:06:28 CDT CPT-51191 Abx/Therapy Injection 09:06:28 CDT CPT-J1071 Depo Testosterone 200mg 08:30:01 CDT CPT-01705 Abx/Therapy Injection 08:30:01 CDT CPT-J1071 Depo Testosterone 200mg 08:24:00 CDT CPT-17078 Abx/Therapy Injection 08:24:00 CDT CPT-45543 Venipuncture Draw Fee 14:39:06 CDT CPT-95654 Ribs unilateral 2V - XRAY USE ONLY 12:10:11 CDT CPT-39313 First Vx - Ix admin for Medicare patients 16:32:53 CDT CPT-12498 Boostrix Intramuscular Suspension 5-2.5-18.5 16:32:53 CDT CPT-26526 TB Skin Test 11:42:28 CDT CPT-40714 Tdap 7yrs or > 11:42:28 CDT CPT-J0696 Rocephin 1000 mg (Ceftriaxone) 17:43:43 [facility] CPT-J1040 Depo Medrol 80 mg (Methyl Prednisolone Acetate) 17:43: 43 [facility] CPT-J1100 Decadron 8mg (Dexamethasone) 17:43:42 [facility] CPT-21525 Abx/Therapy Injection 17:43:42 [facility] CPT-92914 Abx/Therapy Injection 17:43:42 [facility] CPT-J1040 Depo Medrol 80 mg (Methyl Prednisolone Acetate) 09:43: 34 [facility] CPT-J1100 Decadron 8mg (Dexamethasone) 09:43:34 [facility] CPT-J0696 Rocephin 1gm Inj Solr 09:43:34 [facility] CPT-25126 Wound Culture - LAB USE ONLY 14:00:21 CDT CPT-I/D I/D Abscess 09:16:37 CDT CPT-41362 Venipuncture Draw Fee 15:20:23 CDT CPT-81721 Microalbumin - LAB USE ONLY 16:02:19 CDT CPT-38392 CBC - LAB USE ONLY 16:02:19 CDT CPT-04054 Venipuncture Draw Fee 16:02:19 CDT CPT-G0438 Initial Annual Wellness Exam 08:10:28 CDT CPT-30889 Venipuncture Draw Fee 13:07:17 CDT CPT-G0008 Administration of Influenza Virus Vaccine 16:09:59 CDT CPT-79268 Fluzone Quadrivalent Intramuscular Suspension 0.5 ML 16: 09:59 CDT CPT-04792 Spec Collection and Handling Fee 15:05:50 CDT
--- OUTSIDE RECORDS SUMMARY | 2018-04-18 10:28 | XMS REPORT | Clinical Summary ---
Author Author Admin, [facility] Organization [employer] Address Unknown Phone Unavailable Allergies, Adverse Reactions, [...] Unspecified vitamin D deficiency Myalgias 729.1 Active Jizaneina Anne ARGUELLO Myalgia and myositis, unspecified URI 465.9 Active Agnieszkaina Anne GONZALEZN Acute upper respiratory infections of unspecified site Medication List Medication Instructions Start Date Stop Date Generic Name NDC Status Provider Patient Instruction GUAIFENESIN 600 MG [id number] 1 tab po q am GUAIFENESIN 35935076293 Active 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 SHRINKER Active FLUTICASONE PROPIONATE 50 MCG/ACT SUSP 2 sprays per nostril bid for 1 week, then 1 spray bid FLUTICASONE PROPIONATE 52209645575 Active 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 SHRINKER Active HYDRALAZINE HCL 25 MG ORAL TABS Take 1 tab BID. HYDRALAZINE HCL 44119310437 Active 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 SHRINKER Active VITAMIN D3 36950 UNIT ORAL TABS 2 po weekly CHOLECALCIFEROL 48126415222 Active JONATHAN Moncada Active OXYCODONE HCL ER 10 MG ORAL T12A 1 tab po 3 times qd. OXYCODONE HCL 74556479402 Active Robbie Busby MD Active NITROSTAT 0.4 MG SUBL PRN NITROGLYCERIN 93630765003 No Longer Active Robbie Busby MD Active LORATADINE 10 MG TABS 1 tablet by mouth daily for congestion and allergies. LORATADINE 86853012028 No Longer Active Robbie Busby MD Active FLONASE 50 MCG/ACT SUSP 1 spray each nostril twice daily for allergies and runny nose FLUTICASONE PROPIONATE 87813835984 No Longer Active Robbie Busby MD Active FIORICET 50-300-40 MG ORAL CAPS take 1 tab po qday prn migraines. [id number]-AFXOSARI 88510650754 No Longer Active Robbie Busby MD Active VITAMIN D3 01375 UNIT CAPS 2 CAPS PO WEEKLY CHOLECALCIFEROL 38804006742 No Longer Active Robbie Busby MD Active CYCLOBENZAPRINE HCL 10 MG TABS 1 tablet by mouth three times daily as needed for muscle spasm/pain for 10 days CYCLOBENZAPRINE HCL 68460647354 No Longer Active Robbie Busby MD Active PREDNISONE 20 MG TAB take 3 tabs daily for 3 days, 2 tabs daily for 3 days, 1 tab daily for 3 days, 1/2 tab daily for 4 days PREDNISONE 14512397081 No Longer Active Erin Garsia APRN Active CLONIDINE HCL 0.2 MG ORAL TABS 1 TAB BY MOUTH EVERY 8 HOURS 12/29 CLONIDINE HCL 57530125134 No Longer Active Erin Garsia APRN Active MECLIZINE HCL 25 MG TAB one 4 times a day as needed for dizziness MECLIZINE HCL 13848615628 No Longer Active Erin Garsia APRN Active SPIRONOLACTONE 25 MG TAB 4 tablets by mouth daily SPIRONOLACTONE 66809979427 No Longer Active Erin Garsia APRN Active LEVAQUIN 500 MG TAB 1 tablet by mouth daily for 7 days LEVOFLOXACIN 35724601911 No Longer Active Erin Garsia APRN Active BACTRIM DS 800-160 MG TAB 1 tab by mouth twice daily TRIMETHOPRIM-SULFAMETHOXAZOLE 02292758896 No Longer Active Robbie Busby MD Active HYDRALAZINE HCL 50 MG ORAL TABS TWO BY MOUTH THREE TIMES DAILY HYDRALAZINE HCL 59158091413 No Longer Active 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 SHRINKER Active HYDROCODONE-ACETAMINOPHEN 5-325 MG TABS 1 tab by mouth BID prn back pain 2013 HYDROCODONE-ACETAMINOPHEN 16910095084 No Longer Active 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 SHRINKER Active HYDROCHLOROTHIAZIDE TABS Take one by mouth daily HYDROCHLOROTHIAZIDE TABS 50223708376 No Longer Active 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 SHRINKER Active LAMISIL 125 MG ORAL PACK 1 TAB PO DAILY TERBINAFINE HCL 30033020550 No Longer Active 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 SHRINKER Active TRILEPTAL 150 MG ORAL TABS 1 TAB PO Q HS OXCARBAZEPINE 43115750232 No Longer Active 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 SHRINKER Active BETADINE 10 % EXT SOLN 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 POVIDONE-IODINE 69595362550 No Longer Active Jillina Zulemal SHRINKER Active NYSTATIN 217346 UNIT/ML M/T SUSP 5mL po QID x 10 days NYSTATIN 61190820784 No Longer Active Erin Garsia APRN Active PREDNISONE 20 MG TAB 1 tablet twice daily for 2 days, then 1 tablet once daily for 2 days PREDNISONE 46608908479 No Longer Active Robbie Busby MD Active CEFDINIR 300 MG ORAL CAPS Take 1 cap po bid x 10 days CEFDINIR 65219735457 No Longer Active Robbie Busby MD Active AMLODIPINE BESYLATE 10 MG TABS 1 tablet by mouth daily AMLODIPINE BESYLATE 88108782778 Active Robbie Busby MD Active CARVEDILOL 25 MG TABS 1 & 1/2 TAB po BID CARVEDILOL 36278790506 Active Robbie Busby MD Active NEXIUM 40 MG CPDR 1 cap by mouth daily ESOMEPRAZOLE MAGNESIUM 64139750371 Active Robbie Busby MD Active PROTONIX 40 MG SOLR 1 po qday for acid reflux PANTOPRAZOLE SODIUM 66025727398 No Longer Active Gali Raida Active KEFLEX 500 MG CAP 1 po TID x 10 days CEPHALEXIN 86715993192 No Longer Active Robbie Busby MD Active TOPIRAMATE 50 MG ORAL TABS take 1 tab po BID for migraines. TOPIRAMATE 74159280235 Active Robbie Busby MD Active TEMAZEPAM 15 MG ORAL CAPS 1 TAB PO Q HS TEMAZEPAM 04763831170 Active Robbie Busby MD Active ALPRAZOLAM 2 MG ORAL TABS 1 TAB PO BID ALPRAZOLAM 69016183255 Active Robbie Busby MD Active FENOFIBRATE 145 MG TABS Take one by mouth daily FENOFIBRATE 83188944293 No Longer Active Robbie Busby MD Active SPIRONOLACTONE 50 MG TABS 1 tablet by mouth twice a day SPIRONOLACTONE 75728906627 No Longer Active Robbie Busby MD Active HYDRALAZINE HCL 25 MG TABS 1 tablet by mouth tid for hypertension HYDRALAZINE HCL 31646022530 No Longer Active Robbie Busby MD Active VIIBRYD 40 MG TABS take 1 tab po qday for depression. VILAZODONE HCL 74856391586 No Longer Active Robbie Busby MD Active TERBINAFINE HCL 250 MG TABS 1 tab po qday for foot infection 2014 TERBINAFINE HCL 80175817065 No Longer Active Robbie Busby MD Active GABAPENTIN 300 MG CAPS 1 po q hs for nerve pain GABAPENTIN 56885862319 Active Robbie Busby MD Active CHERATUSSIN AC 100-10 MG/5ML ORAL SOLN 7.5 mL PO q 4-6 hrs PRN cough GUAIFENESIN-CODEINE 50025708744 No Longer Active Robbie Busby MD Active AZITHROMYCIN 250 MG ORAL TABS 2 tablets PO today---then, 1 tablet PO daily x 4 more days (and 1 optional refill) AZITHROMYCIN 05495314086 No Longer Active Robbie Busby MD Active NORVASC 10 MG TAB 1 tablet by mouth daily AMLODIPINE BESYLATE 25500313649 No Longer Active Alex ALVAREZ Active IMDUR 60 MG TAB CR take 1 tab po qday for blood pressure ISOSORBIDE MONONITRATE Active Robbie Busby MD Active ISOSORBIDE DINITRATE 30 MG TABS Take one by mouth daily ISOSORBIDE DINITRATE 10721888564 No Longer Active Robbie Busby MD Active VIIBRYD 40 MG TABS 1 TA B PO DAILY VILAZODONE HCL 82466247884 Active Robbie Busby MD Active ZITHROMAX 250 MG TAB 2 po today, then 1 po q days 2-5 AZITHROMYCIN 50492496924 No Longer Active Robbie Busby MD Active [id number]-RPS-8 0.3 MG/24HR PTWK apply 2 patches q week for HTN CLONIDINE HCL 36378147036 Active Robbie Busby MD Active DOXAZOSIN MESYLATE 4 MG TABS Take one by mouth daily DOXAZOSIN MESYLATE 34208896094 Active Robbie Busby MD Active TOPROL XL 200 MG [id number] Take one by mouth daily METOPROLOL SUCCINATE 80589375434 Active Robbie Busby MD Active VENLAFAXINE HCL ER 150 MG [id number] Take one by mouth daily VENLAFAXINE HCL 20279715619 Active Robbie Busby MD Active LIPITOR 40 MG TABS Take one by mouth daily ATORVASTATIN CALCIUM 94710955325 Active Robbie Busby MD Active ISOSORBIDE DINITRATE 30 MG TABS Take one by mouth daily ISOSORBIDE DINITRATE 30 MG TABS 423953 ISOSORBIDE DINITRATE Inactive NORVASC 10 MG TAB 1 tablet by mouth daily NORVASC 10 MG TAB 209510 AMLODIPINE BESYLATE Inactive AZITHROMYCIN 250 MG ORAL TABS 2 tablets PO today---then, 1 tablet PO daily x 4 more days (and 1 optional refill) AZITHROMYCIN 250 MG ORAL TABS 6181870 AZITHROMYCIN Inactive CHERATUSSIN AC 100-10 MG/5ML ORAL SOLN 7.5 mL PO q 4-6 hrs PRN cough CHERATUSSIN AC 100-10 MG/5ML ORAL SOLN 122896 GUAIFENESIN- CODEINE Inactive VIIBRYD 40 MG TABS take 1 tab po qday for depression. VIIBRYD 40 MG TABS VILAZODONE HCL Inactive HYDRALAZINE HCL 25 MG TABS 1 tablet by mouth tid for hypertension HYDRALAZINE HCL 25 MG TABS 749375 HYDRALAZINE HCL Inactive SPIRONOLACTONE 50 MG TABS 1 tablet by mouth twice a day SPIRONOLACTONE 50 MG TABS 892093 SPIRONOLACTONE Inactive FENOFIBRATE 145 MG TABS Take one by mouth daily FENOFIBRATE 145 MG TABS 733488 FENOFIBRATE Inactive PROTONIX 40 MG SOLR 1 po qday for acid reflux PROTONIX 40 MG SOLR 430582 PANTOPRAZOLE SODIUM Inactive CEFDINIR 300 MG ORAL CAPS Take 1 cap po bid x 10 days CEFDINIR 300 MG ORAL CAPS 346038 CEFDINIR Inactive PREDNISONE 20 MG TAB 1 tablet twice daily for 2 days, then 1 tablet once daily for 2 days PREDNISONE 20 MG TAB 187373 PREDNISONE Inactive NYSTATIN 580198 UNIT/ML M/T SUSP 5mL po QID x 10 days NYSTATIN 068299 UNIT/ML M/T SUSP 308224 NYSTATIN Inactive BETADINE 10 % EXT SOLN 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 BETADINE 10 % EXT SOLN 8155469 POVIDONE-IODINE Inactive TRILEPTAL 150 MG ORAL TABS 1 TAB PO Q HS TRILEPTAL 150 MG ORAL TABS 974138 OXCARBAZEPINE Inactive LAMISIL 125 MG ORAL PACK 1 TAB PO DAILY LAMISIL 125 MG ORAL PACK TERBINAFINE HCL Inactive HYDROCHLOROTHIAZIDE TABS Take one by mouth daily HYDROCHLOROTHIAZIDE TABS HYDROCHLOROTHIAZIDE TABS Inactive HYDROCODONE-ACETAMINOPHEN 5-325 MG TABS 1 tab by mouth BID prn back pain 2013 HYDROCODONE-ACETAMINOPHEN 5-325 MG TABS 842714 HYDROCODONE -ACETAMINOPHEN Inactive HYDRALAZINE HCL 50 MG ORAL TABS TWO BY MOUTH THREE TIMES DAILY HYDRALAZINE HCL 50 MG ORAL TABS 060413 HYDRALAZINE HCL Inactive LEVAQUIN 500 MG TAB 1 tablet by mouth daily for 7 days LEVAQUIN 500 MG TAB 921236 LEVOFLOXACIN Inactive SPIRONOLACTONE 25 MG TAB 4 tablets by mouth daily SPIRONOLACTONE 25 MG TAB 005268 SPIRONOLACTONE Inactive MECLIZINE HCL 25 MG TAB one 4 times a day as needed for dizziness MECLIZINE HCL 25 MG TAB 240414 MECLIZINE HCL Inactive CLONIDINE HCL 0.2 MG ORAL TABS 1 TAB BY MOUTH EVERY 8 HOURS 12/29 CLONIDINE HCL 0.2 MG ORAL TABS 133010 CLONIDINE HCL Inactive CYCLOBENZAPRINE HCL 10 MG TABS 1 tablet by mouth three times daily as needed for muscle spasm/pain for 10 days CYCLOBENZAPRINE HCL 10 MG TABS 381331 CYCLOBENZAPRINE HCL Inactive VITAMIN D3 29622 UNIT CAPS 2 CAPS PO WEEKLY VITAMIN D3 29393 UNIT CAPS CHOLECALCIFEROL Inactive FIORICET 50-300-40 MG ORAL CAPS take 1 tab po qday prn migraines. FIORICET 50-300-40 MG ORAL CAPS 756173 ENPUBPWFPU-DPLU-LOMIRFFX Inactive FLONASE 50 MCG/ACT SUSP 1 spray each nostril twice daily for allergies and runny nose FLONASE 50 MCG/ACT SUSP 3246119 FLUTICASONE PROPIONATE Inactive LORATADINE 10 MG TABS 1 tablet by mouth daily for congestion and allergies. LORATADINE 10 MG TABS 290458 LORATADINE Inactive NITROSTAT 0.4 MG SUBL PRN NITROSTAT 0.4 MG SUBL 532084 NITROGLYCERIN Inactive ZITHROMAX 250 MG TAB 2 po today, then 1 po q days 2-5 ZITHROMAX 250 MG TAB 9938339 AZITHROMYCIN Inactive TERBINAFINE HCL 250 MG TABS 1 tab po qday for foot infection 2014 TERBINAFINE HCL 250 MG TABS 938960 TERBINAFINE HCL Inactive KEFLEX 500 MG CAP 1 po TID x 10 days KEFLEX 500 MG CAP 139877 CEPHALEXIN Inactive BACTRIM DS 800-160 MG TAB 1 tab by mouth twice daily BACTRIM DS 800-160 MG TAB 807141 TRIMETHOPRIM-SULFAMETHOXAZOLE Inactive PREDNISONE 20 MG TAB take 3 tabs daily for 3 days, 2 tabs daily for 3 days, 1 tab daily for 3 days, 1/2 tab daily for 4 days PREDNISONE 20 MG TAB 504142 PREDNISONE Inactive Advance Directives Directive Description Start Date DISCUSSED WITH PATIENT -- NO DECISION MADE Vital Signs Date Name Value Unit Range Description blood pressure, diastolic 99 mm[Hg] BP del [...] 213 [lb_av] Weight Measured blood pressure, diastolic 96 mm[Hg] BP del rio blood pressure, systolic 162 mm[Hg] BP sys height E&M 64 [in_us] Bdy height pulse rate E&M 70 /min Heart rate temperature E&M 98.5 [degF] Body temperature weight E&M 211.5 [lb_av] Weight Measured blood pressure, diastolic 90 mm[Hg] BP [place] blood pressure, systolic 145 mm[Hg] BP sys pulse rate E&M 63 /min Heart rate temperature E&M 96.5 [degF] Body temperature weight E&M 213 [lb_av] [...] AUTO - Chemistry sodium, serum 142 mmol/L 732-231 8785/07/17 carbon dioxide, venous blood 28.2 mmol/L 21.0-32.0 [...] % 11.0-15.0 platelet count 185 THOUSAND/UL 10*3/mm3 133-630 9306/04/14 mean platelet volume 10.9 fL 7.5-12.5 Lab Report: LIPID PANEL, TSH/899, T4, FREE/866 - Chemistry cholesterol, serum 220 mg/dL 618-005 2183/04/14 HDL cholesterol, serum 30 mg/dL > OR=40 triglyceride, serum, fasting 466 mg/dL <150 LDL cholesterol, serum SEE NOTE mg/dL (calc) mg/dL <130 cholesterol/HDL ratio, serum 7.3 (calc) < OR=5.0 Lab Report: MICROALB/CREAT W/RATIO - Chemistry albumin/creatinine ratio, urine < 30 mg/g mg/g{creat} 0-29 Lab Report: MICROALB/CREAT W/RATIO - Lab microalbumin, urine 80 0-19 Lab Report: VITAMIN D, 25-HYDROXY/33168 - Chemistry vitamin D 25-hydroxy, serum 25 ng/mL 30-100 Office Visit: Confusion, dizziness after fall - Basic LDL target level 130 mg/dL Office Visit: Confusion, dizziness after fall - Chemistry HDL cholesterol, serum, target level 40 mg/dL triglyceride, target level 150 mg/dL cholesterol, target level 200 mg/dL Encounters Code Encounter Date Provider Facility CPT-20782 Level 3 Est. Patient 09:00:37 CDT Rober Rodríguez [facility] CPT-90571 Level 3 Est. Patient 16:07:10 CDT Robbie Busby MD [facility] CPT-30049 Level 4 Est. Patient 11:56:16 CDT Erin Garsia [facility] CPT-03293 Level 3 Est. Patient 17:48:02 CDT Robbie Busby MD [facility] CPT-31608 Level 4 Est. Patient 12:00:49 [employer] Rober Rodríguez [facility] CPT-52522 Level 3 Est. Patient 09:16:37 CDT Robbie Busby MD [facility] CPT-54509 Level 3 Est. Patient 19:38:43 CDT Robbie Busby MD [facility] CPT-75004 Level 3 Est. Patient 11:53:38 CDT Robbie Busby MD [facility] CPT-89267 Level 4 Est. Patient 12:52:22 CDT Rober Rodríguez [facility] CPT-93667 Level 4 Est. Patient 22:55:17 CDT Robbie Busby MD [facility] CPT-49156 Level 3 Est. Patient 12:38:24 CDT Desmond Diaz DO [facility] CPT-81837 Level 4 Est. Patient 11:25:03 [employer]DER Robbie Busby MD [facility] CPT-98601 Level 4 Est. Patient 14:50:10 CDT Robbie Busby MD [facility] CPT-54183 Level 4 Est. Patient 23:30:43 CDT Robbie Busby MD [facility] CPT-82649 Level 4 Est. Patient 10:30:43 CDT Robbie Busby MD [facility] CPT-30594 Level 3 Est. Patient 17:08:12 CDT Alex ALVAREZ [facility] CPT-74479 Level 4 Est. Patient 17:51:38 CDT Robbie Busby MD [facility] CPT-27458 Level 4 Est. Patient 14:00:21 CDT Robbie Busby MD [facility] CPT-10974 Level 4 Est. Patient 12:46:48 CDT Robbie Busby MD [facility] CPT-85050 Level 4 Est. Patient 13:34:33 CDT Robbie Busby MD [facility] CPT-11171 Level 4 Est. Patient 16:58:28 CDT Robbie Busby MD [facility] CPT-03496 Level 3 Est. Patient 19:36:53 CDT Alex [facility] CPT-52475 Level 3 Est. Patient 12:58:15 CDT Robbie Busby MD [facility] Procedures Code Procedure Name Date Entry Date Standard Description CPT-49762 Venipuncture Draw Fee 14:39:06 CDT CPT-68508 Ribs unilateral 2V - XRAY USE ONLY 12:10:11 CDT CPT-59925 First Vx - Ix admin for Medicare patients 16:32:53 CDT CPT-94133 Boostrix Intramuscular Suspension 5-2.5-18.5 16:32:53 CDT CPT-53641 TB Skin Test 11:42:28 CDT CPT-74209 Tdap 7yrs or > 11:42:28 CDT CPT-J0696 Rocephin 1000 mg (Ceftriaxone) 17:43:43 [employer] CPT-J1040 Depo Medrol 80 mg (Methyl Prednisolone Acetate) 17:43: 43 [employer] CPT-J1100 Decadron 8mg (Dexamethasone) 17:43:42 [employer] CPT-03412 Abx/Therapy Injection 17:43:42 [employer] CPT-07822 Abx/Therapy Injection 17:43:42 [employer] CPT-J1040 Depo Medrol 80 mg (Methyl Prednisolone Acetate) 09:43: 34 [employer] CPT-J1100 Decadron 8mg (Dexamethasone) 09:43:34 [employer] CPT-J0696 Rocephin 1gm Inj Solr 09:43:34 [employer] CPT-82440 Wound Culture - LAB USE ONLY 14:00:21 CDT CPT-I/D I/D Abscess 09:16:37 CDT CPT-84968 Venipuncture Draw Fee 15:20:23 CDT CPT-69606 Microalbumin - LAB USE ONLY 16:02:19 CDT CPT-47495 CBC - LAB USE ONLY 16:02:19 CDT CPT-88491 Venipuncture Draw Fee 16:02:19 CDT CPT-G0438 Initial Annual Wellness Exam 08:10:28 CDT CPT-11454 Venipuncture Draw Fee 13:07:17 CDT CPT-G0008 Administration of Influenza Virus Vaccine 16:09:59 CDT CPT-80343 Fluzone Quadrivalent Intramuscular Suspension 0.5 ML 16: 09:59 CDT CPT-79617 Spec Collection and Handling Fee 15:05:50 CDT
--- OUTSIDE RECORDS SUMMARY | 2018-04-18 10:29 | XMS REPORT | Clinical Summary ---
Author Author Admin, AKUA Organization [email or web address] [facility] Address Unknown Phone Unavailable Allergies, Adverse [...] chronic, stage III 585.3 Active Ca Garcia [facility] Chronic kidney disease, Stage III (moderate) C V A / Stroke Active Robbie Busby MD Myocardial Infarction: Active Robbie Busby MD Acute myocardial infarction, unspecified site, initial episode of care ( History of) Sleep apnea, chronic 780.57 Active Erin Garsia PEDIATRIC LPN Unspecified sleep apnea Continuous positive airway pressure rx V46.2 Active Erin Garsia PEDIATRIC LPN Other dependence on machines, 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 Fatigue 780.79 Resolved Desmond Diaz DO Other malaise and fatigue Hypertension, secondary, 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 Desmond Diaz DO Other malignant secondary hypertension Tachycardia 785.0 Active Rober Rodríguez PEDIATRIC LPN Tachycardia, unspecified Insect bite, infected 919.5 Resolved Desmond Diaz DO Insect bite, nonvenomous, of other, multiple, and unspecified sites, infected Abscess, skin 682.9 Resolved Desmond Diaz DO Cellulitis and abscess of unspecified sites URI 465.9 Resolved Desmond Diaz DO Acute upper respiratory infections of unspecified site Hypertension 401.9 Active Rober Rodríguez PEDIATRIC LPN Unspecified essential hypertension Sinusitis - acute 461.9 [...] Hypogonadism, low testosterone 257.2 Active Erin Garsia PEDIATRIC LPN Other testicular hypofunction Low back pain, chronic 724.2 Active Robbie Busby MD Lumbago Bronchitis-Acute 466.0 Active Desmond Howell Joe DO Acute bronchitis Polydipsia 783.5 Active Desmond Dante Joe DO Polydipsia Sinusitis ICD-461.9 Inactive 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 STAFF PHYSICAL THERAPIST 2017 Low back pain, acute ICD-724.2 Inactive 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 STAFF PHYSICAL THERAPIST Low back pain, chronic ICD-724.2 Inactive 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 STAFF PHYSICAL THERAPIST Bronchitis, acute ICD-466.0 Inactive 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 STAFF PHYSICAL THERAPIST Onychomycosis, toenails ICD-110.1 Inactive 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 STAFF PHYSICAL THERAPIST Dizziness ICD-780.4 Inactive 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 STAFF PHYSICAL THERAPIST 2017 Folliculitis ICD-704.8 Inactive 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 STAFF PHYSICAL THERAPIST Pharyngitis-Acute ICD-462 Inactive 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 STAFF PHYSICAL THERAPIST Fatigue ICD-780.79 Inactive 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 STAFF PHYSICAL THERAPIST 09/20 Hypertension, secondary, malignant ICD-405.09 Inactive 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 STAFF PHYSICAL THERAPIST Insect bite, infected ICD-919.5 Inactive 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 STAFF PHYSICAL THERAPIST Abscess, skin ICD-682.9 Inactive 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 STAFF PHYSICAL THERAPIST URI ICD-465.9 Inactive 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 STAFF PHYSICAL THERAPIST Sinusitis - acute ICD-461.9 Inactive 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 STAFF PHYSICAL THERAPIST Acute confusion ICD-293.0 Inactive 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 STAFF PHYSICAL THERAPIST Headache ICD-784.0 Inactive 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 STAFF PHYSICAL THERAPIST 09/20 Back pain ICD-724.5 Inactive 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 STAFF PHYSICAL THERAPIST 2017 Rib pain, right sided ICD-786.50 Inactive 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 STAFF PHYSICAL THERAPIST Myalgias ICD-729.1 Inactive 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 STAFF PHYSICAL THERAPIST 09/20 URI ICD-465.9 Inactive 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 TANNA Medication List Medication Instructions Start Date Stop Date Generic Name NDC Status Provider Patient Instruction PREDNISONE 20 MG ORAL TABLET two tabs by mouth today, then one tab by mouth days two and three PREDNISONE 25520382597 Active Desmond Diaz DO Active AZITHROMYCIN 250 MG ORAL TABLET 2 po qd x 1 day, then 1 po qd x 4 days 09/20 AZITHROMYCIN 40732573381 Active Desmond Diaz DO Active TOPIRAMATE 50 MG ORAL TABLET take 1 tab po BID for migraines. TOPIRAMATE 93672354865 No Longer Active Desmond Diaz DO Active CYCLOBENZAPRINE HCL 10 MG ORAL TABLET 1 po TID PRN muscle spasm/pain for 10 days CYCLOBENZAPRINE HCL 38616577331 No Longer Active Desmond Diaz DO Active GUAIFENESIN ER 600 MG ORAL TABLET EXTENDED RELEASE 12 HOUR 1 tab po q am 2016 GUAIFENESIN 05537076024 No Longer Active Robbie Busby MD Active DIVALPROEX SODIUM ER 500 MG ORAL TABLET EXTENDED RELEASE 24 HOUR Once daily DIVALPROEX SODIUM 26103323927 Active Robbie Busby MD Active DEPO-TESTOSTERONE 200 MG/ML INTRAMUSCULAR SOLUTION 1 IM Injections every 2 weeks for low testosterone TESTOSTERONE CYPIONATE 29496111212 Active Zulema Blank LPN Active FLUTICASONE PROPIONATE 50 MCG/ACT NASAL SUSPENSION 2 sprays per nostril bid for 1 week, then 1 spray bid FLUTICASONE PROPIONATE 28165993779 Active Rober Rodríguez APRN Active HYDRALAZINE HCL 25 MG ORAL TABLET Take 1 tab BID. HYDRALAZINE HCL 25385836928 Active Rober Rodríguez APRN Active VITAMIN D3 97753 UNIT ORAL TABLET 2 po weekly CHOLECALCIFEROL 50343048883 Active Robbie Busby MD Active OXYCODONE HCL ER 10 MG ORAL TABLET ER 12 HOUR ABUSE-DETERRENT 1 tab po 3 times qd. OXYCODONE HCL 57450989334 Active Robbie Busby MD Active NITROSTAT 0.4 MG SUBLINGUAL TABLET SUBLINGUAL PRN NITROGLYCERIN 12430853458 No Longer Active Robbie Busby MD Active LORATADINE 10 MG ORAL TABLET 1 tablet by mouth daily for congestion and allergies. LORATADINE 02016998140 No Longer Active Robbie Busby MD Active FLONASE 50 MCG/ACT NASAL SUSPENSION 1 spray each nostril twice daily for allergies and runny nose FLUTICASONE PROPIONATE 68138760541 No Longer Active Robbie Busby MD Active FIORICET 50-300-40 MG ORAL CAPSULE take 1 tab po qday prn migraines. [id number] 28345696281 No Longer Active Robbie Busby MD Active VITAMIN D3 29868 UNIT ORAL CAPSULE 2 CAPS PO WEEKLY CHOLECALCIFEROL 30723508087 No Longer Active Robbie Busby MD Active CYCLOBENZAPRINE HCL 10 MG ORAL TABLET 1 tablet by mouth three times daily as needed for muscle spasm/pain for 10 days CYCLOBENZAPRINE HCL 19921367178 No Longer Active Robbie Busby MD Active PREDNISONE 20 MG ORAL TABLET take 3 tabs daily for 3 days, 2 tabs daily for 3 days, 1 tab daily for 3 days, 1/2 tab daily for 4 days PREDNISONE 28672782802 No Longer Active Erin Garsia APRN Active CLONIDINE HCL 0.2 MG ORAL TABLET 1 TAB BY MOUTH EVERY 8 HOURS CLONIDINE HCL 63953651732 No Longer Active Erin Garsia APRN Active MECLIZINE HCL 25 MG ORAL TABLET one 4 times a day as needed for dizziness MECLIZINE HCL 97620627353 No Longer Active Erin Garsia APRN Active SPIRONOLACTONE 25 MG ORAL TABLET 4 tablets by mouth daily SPIRONOLACTONE 42293848041 No Longer Active Erin Garsia APRN Active LEVAQUIN 500 MG ORAL TABLET 1 tablet by mouth daily for 7 days LEVOFLOXACIN 84322286945 No Longer Active Erin Garsia APRN Active BACTRIM DS 800-160 MG ORAL TABLET 1 tab by mouth twice daily 2015 TRIMETHOPRIM-SULFAMETHOXAZOLE 27495780200 No Longer Active Robbie Busby MD Active HYDRALAZINE HCL 50 MG ORAL TABLET TWO BY MOUTH THREE TIMES DAILY HYDRALAZINE HCL 72694187391 No Longer Active 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 PEDIATRIC LPN Active HYDROCODONE-ACETAMINOPHEN 5-325 MG ORAL TABLET 1 tab by mouth BID prn back pain HYDROCODONE-ACETAMINOPHEN 42695105367 No Longer Active 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 PEDIATRIC LPN Active HYDROCHLOROTHIAZIDE TABLET Take one by mouth daily HYDROCHLOROTHIAZIDE TABS 37420311136 No Longer Active 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 PEDIATRIC LPN Active LAMISIL 125 MG ORAL PACKET 1 TAB PO DAILY TERBINAFINE HCL 04703384162 No Longer Active 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 PEDIATRIC LPN Active TRILEPTAL 150 MG ORAL TABLET 1 TAB PO Q HS OXCARBAZEPINE 77333521170 No Longer Active 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 PEDIATRIC LPN Active BETADINE 10 % EXTERNAL SOLUTION 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 07/29 POVIDONE-IODINE 06438683065 No Longer Active 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 PEDIATRIC LPN Active NYSTATIN 708446 UNIT/ML MOUTH/THROAT SUSPENSION 5mL po QID x 10 days NYSTATIN 29373419571 No Longer Active Erin Garsia APRN Active PREDNISONE 20 MG ORAL TABLET 1 tablet twice daily for 2 days, then 1 tablet once daily for 2 days PREDNISONE 53810758624 No Longer Active Robbie Busby MD Active CEFDINIR 300 MG ORAL CAPSULE Take 1 cap po bid x 10 days CEFDINIR 46528479872 No Longer Active Robbie Busby MD Active AMLODIPINE BESYLATE 10 MG ORAL TABLET 1 tablet by mouth daily AMLODIPINE BESYLATE 24031314800 Active Robbie Busby MD Active CARVEDILOL 25 MG ORAL TABLET 1 & 1/2 TAB po BID CARVEDILOL 66700903621 Active Robbie Busby MD Active NEXIUM 40 MG ORAL CAPSULE DELAYED RELEASE 1 cap by mouth daily ESOMEPRAZOLE MAGNESIUM 30819703526 Active Robbie Busby MD Active PROTONIX 40 MG INTRAVENOUS SOLUTION RECONSTITUTED 1 po qday for acid reflux PANTOPRAZOLE SODIUM 62790839303 No Longer Active Galileonila Negro Active KEFLEX 500 MG ORAL CAPSULE 1 po TID x 10 days CEPHALEXIN 94295476800 No Longer Active Robbie Busby MD Active TEMAZEPAM 15 MG ORAL CAPSULE 1 TAB PO Q HS TEMAZEPAM 11397105484 Active Robbie Busby MD Active ALPRAZOLAM 2 MG ORAL TABLET 1 TAB PO BID ALPRAZOLAM 78674536929 Active Robbie Busby MD Active FENOFIBRATE 145 MG ORAL TABLET Take one by mouth daily FENOFIBRATE 40707878661 No Longer Active Robbie Busby MD Active SPIRONOLACTONE 50 MG ORAL TABLET 1 tablet by mouth twice a day SPIRONOLACTONE 86661627008 No Longer Active Robbie Busby MD Active HYDRALAZINE HCL 25 MG ORAL TABLET 1 tablet by mouth tid for hypertension 2013 HYDRALAZINE HCL 23994419831 No Longer Active Robbie Busby MD Active VIIBRYD 40 MG ORAL TABLET take 1 tab po qday for depression. 2014 VILAZODONE HCL 80575570629 No Longer Active Robbie Busby MD Active TERBINAFINE HCL 250 MG ORAL TABLET 1 tab po qday for foot infection TERBINAFINE HCL 38021145023 No Longer Active Robbie Busby MD Active GABAPENTIN 300 MG ORAL CAPSULE 1 po q hs for nerve pain GABAPENTIN 80083336997 Active Robbie Busby MD Active CHERATUSSIN AC 100-10 MG/5ML ORAL SOLUTION 7.5 mL PO q 4-6 hrs PRN cough 2014 GUAIFENESIN-CODEINE 40216768675 No Longer Active Robbie Busby MD Active AZITHROMYCIN 250 MG ORAL TABLET 2 tablets PO today---then, 1 tablet PO daily x 4 more days (and 1 optional refill) AZITHROMYCIN 63938371704 No Longer Active Robbie Busby MD Active NORVASC 10 MG ORAL TABLET 1 tablet by mouth daily AMLODIPINE BESYLATE 15391204216 No Longer Active Alex ALVAREZ Active IMDUR 60 MG ORAL TABLET EXTENDED RELEASE 24 HOUR take 1 tab po qday for blood pressure ISOSORBIDE MONONITRATE 44927312785 Active Robbie Busby MD Active ISOSORBIDE DINITRATE 30 MG ORAL TABLET Take one by mouth daily ISOSORBIDE DINITRATE 16629056710 No Longer Active Robbie Busby MD Active VIIBRYD 40 MG ORAL TABLET 1 TA B PO DAILY VILAZODONE HCL 33750864608 Active Robbie Busby MD Active ZITHROMAX 250 MG ORAL TABLET 2 po today, then 1 po q days 2-5 AZITHROMYCIN 63174821981 No Longer Active Robbie Busby MD Active [id number] 0.3 MG/24HR TRANSDERMAL PATCH WEEKLY apply 2 patches q week for HTN CLONIDINE HCL 79562084612 Active Robbie Busby MD Active DOXAZOSIN MESYLATE 4 MG ORAL TABLET Take one by mouth daily DOXAZOSIN MESYLATE 54421256970 Active Robbie Busby MD Active TOPROL XL 200 MG ORAL TABLET EXTENDED RELEASE 24 HOUR Take one by mouth daily METOPROLOL SUCCINATE 98992857725 Active Robbie Busby MD Active VENLAFAXINE HCL ER 150 MG ORAL TABLET EXTENDED RELEASE 24 HOUR Take one by mouth daily VENLAFAXINE HCL 63492370036 Active Robbie Busby MD Active LIPITOR 40 MG ORAL TABLET Take one by mouth daily ATORVASTATIN CALCIUM 79593007245 Active Robbie Busby MD Active ISOSORBIDE DINITRATE 30 MG ORAL TABLET Take one by mouth daily ISOSORBIDE DINITRATE 30 MG ORAL TABLET 233059 ISOSORBIDE DINITRATE Inactive NORVASC 10 MG ORAL TABLET 1 tablet by mouth daily NORVASC 10 MG ORAL TABLET 654511 AMLODIPINE BESYLATE Inactive AZITHROMYCIN 250 MG ORAL TABLET 2 tablets PO today---then, 1 tablet PO daily x 4 more days (and 1 optional refill) AZITHROMYCIN 250 MG ORAL TABLET 123785 AZITHROMYCIN Inactive CHERATUSSIN AC 100-10 MG/5ML ORAL SOLUTION 7.5 mL PO q 4-6 hrs PRN cough 2014 CHERATUSSIN AC 100-10 MG/5ML ORAL SOLUTION 559585 GUAIFENESIN-CODEINE Inactive VIIBRYD 40 MG ORAL TABLET take 1 tab po qday for depression. 2014 VIIBRYD 40 MG ORAL TABLET VILAZODONE HCL Inactive HYDRALAZINE HCL 25 MG ORAL TABLET 1 tablet by mouth tid for hypertension 2013 HYDRALAZINE HCL 25 MG ORAL TABLET 817535 HYDRALAZINE HCL Inactive SPIRONOLACTONE 50 MG ORAL TABLET 1 tablet by mouth twice a day SPIRONOLACTONE 50 MG ORAL TABLET 704219 SPIRONOLACTONE Inactive FENOFIBRATE 145 MG ORAL TABLET Take one by mouth daily FENOFIBRATE 145 MG ORAL TABLET 762246 FENOFIBRATE Inactive PROTONIX 40 MG INTRAVENOUS SOLUTION RECONSTITUTED 1 po qday for acid reflux PROTONIX 40 MG INTRAVENOUS SOLUTION RECONSTITUTED 050686 PANTOPRAZOLE SODIUM Inactive CEFDINIR 300 MG ORAL CAPSULE Take 1 cap po bid x 10 days CEFDINIR 300 MG ORAL CAPSULE 439676 CEFDINIR Inactive PREDNISONE 20 MG ORAL TABLET 1 tablet twice daily for 2 days, then 1 tablet once daily for 2 days PREDNISONE 20 MG ORAL TABLET 032127 PREDNISONE Inactive NYSTATIN 954895 UNIT/ML MOUTH/THROAT SUSPENSION 5mL po QID x 10 days NYSTATIN 139367 UNIT/ML MOUTH/THROAT SUSPENSION 071896 NYSTATIN Inactive BETADINE 10 % EXTERNAL SOLUTION 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 07/29 BETADINE 10 % EXTERNAL SOLUTION 4548063 POVIDONE-IODINE Inactive TRILEPTAL 150 MG ORAL TABLET 1 TAB PO Q HS TRILEPTAL 150 MG ORAL TABLET 053668 OXCARBAZEPINE Inactive LAMISIL 125 MG ORAL PACKET 1 TAB PO DAILY LAMISIL 125 MG ORAL PACKET TERBINAFINE HCL Inactive HYDROCHLOROTHIAZIDE TABLET Take one by mouth daily HYDROCHLOROTHIAZIDE TABLET HYDROCHLOROTHIAZIDE TABS Inactive HYDROCODONE-ACETAMINOPHEN 5-325 MG ORAL TABLET 1 tab by mouth BID prn back pain HYDROCODONE-ACETAMINOPHEN 5-325 MG ORAL TABLET 077651 HYDROCODONE-ACETAMINOPHEN Inactive HYDRALAZINE HCL 50 MG ORAL TABLET TWO BY MOUTH THREE TIMES DAILY HYDRALAZINE HCL 50 MG ORAL TABLET 399754 HYDRALAZINE HCL Inactive LEVAQUIN 500 MG ORAL TABLET 1 tablet by mouth daily for 7 days LEVAQUIN 500 MG ORAL TABLET 926732 LEVOFLOXACIN Inactive SPIRONOLACTONE 25 MG ORAL TABLET 4 tablets by mouth daily SPIRONOLACTONE 25 MG ORAL TABLET 769155 SPIRONOLACTONE Inactive MECLIZINE HCL 25 MG ORAL TABLET one 4 times a day as needed for dizziness MECLIZINE HCL 25 MG ORAL TABLET 723940 MECLIZINE HCL Inactive CLONIDINE HCL 0.2 MG ORAL TABLET 1 TAB BY MOUTH EVERY 8 HOURS CLONIDINE HCL 0.2 MG ORAL TABLET 113127 CLONIDINE HCL Inactive CYCLOBENZAPRINE HCL 10 MG ORAL TABLET 1 tablet by mouth three times daily as needed for muscle spasm/pain for 10 days CYCLOBENZAPRINE HCL 10 MG ORAL TABLET 100384 CYCLOBENZAPRINE HCL Inactive VITAMIN D3 41230 UNIT ORAL CAPSULE 2 CAPS PO WEEKLY VITAMIN D3 32341 UNIT ORAL CAPSULE CHOLECALCIFEROL Inactive FIORICET 50-300-40 MG ORAL CAPSULE take 1 tab po qday prn migraines. FIORICET 50-300-40 MG ORAL CAPSULE 088502 BUTALBITAL-APAP- CAFFEINE Inactive FLONASE 50 MCG/ACT NASAL SUSPENSION 1 spray each nostril twice daily for allergies and runny nose FLONASE 50 MCG/ACT NASAL SUSPENSION 1372333 FLUTICASONE PROPIONATE Inactive LORATADINE 10 MG ORAL TABLET 1 tablet by mouth daily for congestion and allergies. LORATADINE 10 MG ORAL TABLET 961683 LORATADINE Inactive NITROSTAT 0.4 MG SUBLINGUAL TABLET SUBLINGUAL PRN NITROSTAT 0.4 MG SUBLINGUAL TABLET SUBLINGUAL 188380 NITROGLYCERIN Inactive GUAIFENESIN ER 600 MG ORAL TABLET EXTENDED RELEASE 12 HOUR 1 tab po q am 2016 GUAIFENESIN ER 600 MG ORAL TABLET EXTENDED RELEASE 12 HOUR GUAIFENESIN Inactive CYCLOBENZAPRINE HCL 10 MG ORAL TABLET 1 po TID PRN muscle spasm/pain for 10 days CYCLOBENZAPRINE HCL 10 MG ORAL TABLET 433793 CYCLOBENZAPRINE HCL Inactive TOPIRAMATE 50 MG ORAL TABLET take 1 tab po BID for migraines. TOPIRAMATE 50 MG ORAL TABLET 490066 TOPIRAMATE Inactive ZITHROMAX 250 MG ORAL TABLET 2 po today, then 1 po q days 2-5 ZITHROMAX 250 MG ORAL TABLET 413043 AZITHROMYCIN Inactive TERBINAFINE HCL 250 MG ORAL TABLET 1 tab po qday for foot infection TERBINAFINE HCL 250 MG ORAL TABLET 664526 TERBINAFINE HCL Inactive KEFLEX 500 MG ORAL CAPSULE 1 po TID x 10 days KEFLEX 500 MG ORAL CAPSULE 678199 CEPHALEXIN Inactive BACTRIM DS 800-160 MG ORAL TABLET 1 tab by mouth twice daily 2015 BACTRIM DS 800-160 MG ORAL TABLET 628647 TRIMETHOPRIM- SULFAMETHOXAZOLE Inactive PREDNISONE 20 MG ORAL TABLET take 3 tabs daily for 3 days, 2 tabs daily for 3 days, 1 tab daily for 3 days, 1/2 tab daily for 4 days PREDNISONE 20 MG ORAL TABLET 969148 PREDNISONE Inactive Advance Directives Directive Description Start [...] AUTO - Chemistry sodium, serum 142 mmol/L 537-407 1870/07/17 carbon dioxide, venous blood 28.2 mmol/L 21.0-32.0 [...] % 11.0-15.0 platelet count 185 THOUSAND/UL 10*3/mm3 952-557 6859/04/14 mean platelet volume 10.9 fL 7.5-12.5 Lab Report: LIPID PANEL, TSH/899, T4, FREE/866 - Chemistry cholesterol, serum 220 mg/dL 000-219 6079/04/14 HDL cholesterol, serum 30 mg/dL > OR=40 [...] 1.80 ng/mL 0.00-4.00 Lab Report: VITAMIN D, 25-HYDROXY/69495 - Chemistry vitamin D 25-hydroxy, serum 25 ng/mL 30-100 Office Visit: Confusion, dizziness after fall - Basic LDL target level 130 mg/dL Office Visit: Confusion, dizziness after fall - Chemistry HDL cholesterol, serum, target level 40 mg/dL triglyceride, target level 150 mg/dL cholesterol, target level 200 mg/dL Encounters Code Encounter Date Provider Facility CPT-61147 Level 4 Est. Patient 15:23:44 MEDIA THEORIST AND AUTHOR OF Desmond Diaz DO [facility] CPT-98208 Level 3 Est. Patient 15:40:49 CDT Robbie Busby MD [facility] CPT-92253 Level 4 Est. Patient 15:18:19 CDT Robbie Busby MD [facility] CPT-51110 Level 3 Est. Patient 09:00:37 CDT Rober Rodríguez [facility] [place] CPT-85921 Level 3 Est. Patient 16:07:10 CDT Robbie Busby MD [facility] CPT-77900 Level 4 Est. Patient 11:56:16 CDT Erin Garsia [facility] [place] CPT-60274 Level 3 Est. Patient 17:48:02 CDT Robbie Busby MD [facility] CPT-19215 Level 4 Est. Patient 12:00:49 MEDIA THEORIST AND AUTHOR OF Rober Rodríguez [facility] [place] CPT-08607 Level 3 Est. Patient 09:16:37 CDT Robbie Busby MD [facility] CPT-64448 Level 3 Est. Patient 19:38:43 CDT Robbie Busby MD [facility] CPT-40480 Level 3 Est. Patient 11:53:38 CDT Robbie Busby MD [facility] CPT-47191 Level 4 Est. Patient 12:52:22 CDT Rober Rodríguez [facility] [place] CPT-76576 Level 4 Est. Patient 22:55:17 CDT Robbie Busby MD [facility] CPT-64173 Level 3 Est. Patient 12:38:24 CDT Desmond Diaz DO [facility] CPT-83167 Level 4 Est. Patient 11:25:03 MEDIA THEORIST AND AUTHOR OF Robbie Busby MD [facility] CPT-05695 Level 4 Est. Patient 14:50:10 CDT Robbie Busby MD [facility] CPT-54588 Level 4 Est. Patient 23:30:43 CDT oRbbie Busby MD [facility] CPT-06143 Level 4 Est. Patient 10:30:43 CDT Robbie Busby MD [facility] CPT-38609 Level 3 Est. Patient 17:08:12 CDT Alex ALVAREZ [facility] CPT-62389 Level 4 Est. Patient 17:51:38 CDT Robbie Busby MD [facility] CPT-54773 Level 4 Est. Patient 14:00:21 CDT Robbie Busby MD [facility] CPT-25900 Level 4 Est. Patient 12:46:48 CDT Robbie Busby MD [facility] CPT-73598 Level 4 Est. Patient 13:34:33 CDT Robbie Busby MD [facility] CPT-99137 Level 4 Est. Patient 16:58:28 CDT Robbie Busby MD [facility] CPT-03486 Level 3 Est. Patient 19:36:53 CDT Alex ALVAREZ [facility] CPT-75938 Level 3 Est. Patient 12:58:15 CDT Robbie Busby MD [facility] Procedures Code Procedure Name Date Entry Date Standard Description CPT-J1071 Depo Testosterone 200mg 09:38:36 MEDIA THEORIST AND AUTHOR OF CPT-24669 Abx/Therapy Injection 09:38:36 MEDIA THEORIST AND AUTHOR OF CPT-J1071 Depo Testosterone 200mg 10:22:56 MEDIA THEORIST AND AUTHOR OF CPT-42139 Abx/Therapy Injection 10:22:56 MEDIA THEORIST AND AUTHOR OF CPT-J1071 Depo Testosterone 200mg 15:40:23 CDT CPT-59393 Abx/Therapy Injection 15:40:23 CDT CPT-J1071 Depo Testosterone 200mg 14:20:43 CDT CPT-46854 Abx/Therapy Injection 14:20:43 CDT CPT-J1071 Depo Testosterone 200mg 14:17:22 CDT CPT-17615 Abx/Therapy Injection 14:17:22 CDT CPT-J1071 Depo Testosterone 200mg 09:03:53 CDT CPT-12818 Abx/Therapy Injection 09:03:53 CDT CPT-G0439 [facility] Annual Wellness Exam 16:47:44 CDT CPT-J1071 Depo Testosterone 200mg 09:06:28 CDT CPT-13114 Abx/Therapy Injection 09:06:28 CDT CPT-J1071 Depo Testosterone 200mg 08:30:01 CDT CPT-65900 Abx/Therapy Injection 08:30:01 CDT CPT-J1071 Depo Testosterone 200mg 08:24:00 CDT CPT-38252 Abx/Therapy Injection 08:24:00 CDT CPT-26946 Venipuncture Draw Fee 14:39:06 CDT CPT-33310 Ribs unilateral 2V - XRAY USE ONLY 12:10:11 CDT CPT-46699 First Vx - Ix admin for Medicare patients 16:32:53 CDT CPT-57668 Boostrix Intramuscular Suspension 5-2.5-18.5 16:32:53 CDT CPT-95140 TB Skin Test 11:42:28 CDT CPT-92542 Tdap 7yrs or > 11:42:28 CDT CPT-J0696 Rocephin 1000 mg (Ceftriaxone) 17:43:43 MEDIA THEORIST AND AUTHOR OF CPT-J1040 Depo Medrol 80 mg (Methyl Prednisolone Acetate) 17:43: 43 MEDIA THEORIST AND AUTHOR OF CPT-J1100 Decadron 8mg (Dexamethasone) 17:43:42 MEDIA THEORIST AND AUTHOR OF CPT-59089 Abx/Therapy Injection 17:43:42 MEDIA THEORIST AND AUTHOR OF CPT-88761 Abx/Therapy Injection 17:43:42 MEDIA THEORIST AND AUTHOR OF CPT-J1040 Depo Medrol 80 mg (Methyl Prednisolone Acetate) 09:43: 34 MEDIA THEORIST AND AUTHOR OF CPT-J1100 Decadron 8mg (Dexamethasone) 09:43:34 MEDIA THEORIST AND AUTHOR OF CPT-J0696 Rocephin 1gm Inj Solr 09:43:34 MEDIA THEORIST AND AUTHOR OF CPT-27818 Wound Culture - LAB USE ONLY 14:00:21 CDT CPT-I/D I/D Abscess 09:16:37 CDT CPT-99812 Venipuncture Draw Fee 15:20:23 CDT CPT-10951 Microalbumin - LAB USE ONLY 16:02:19 CDT CPT-04731 CBC - LAB USE ONLY 16:02:19 CDT CPT-16633 Venipuncture Draw Fee 16:02:19 CDT CPT-G0438 Initial Annual Wellness Exam 08:10:28 CDT CPT-08476 Venipuncture Draw Fee 13:07:17 CDT CPT-G0008 Administration of Influenza Virus Vaccine 16:09:59 CDT CPT-14037 Fluzone Quadrivalent Intramuscular Suspension 0.5 ML 16: 09:59 CDT CPT-24543 Spec Collection and Handling Fee 15:05:50 CDT
--- OUTSIDE RECORDS SUMMARY | 2018-04-18 10:30 | XMS REPORT | Clinical Summary ---
Author Author Admin, AKUA Organization [facility] Address Unknown Phone Unavailable Allergies, Adverse Reactions, Alerts Allergy Name Reaction Description Start Date Severity Status Provider No Known Allergies Galileonila Negro Conditions or Problems Problem Name Problem [...] for allergies and runny nose FLUTICASONE PROPIONATE 07056725685 Active Robbie Busby MD Active CHERATUSSIN AC 100-10 MG/5ML ORAL SOLN 7.5 mL PO q 4-6 hrs PRN cough GUAIFENESIN-CODEINE 80497941908 No Longer Active Robbie Busby MD Active AZITHROMYCIN 250 MG ORAL TABS 2 tablets PO today---then, 1 tablet PO daily x 4 more days (and 1 optional refill) AZITHROMYCIN 20772084376 No Longer Active Robbie Busby MD Active CLONIDINE HCL 0.2 MG ORAL TABS 1 TAB BY MOUTH EVERY 8 HOURS CLONIDINE HCL 54387086642 Active Robbie Busby MD Active HYDROCHLOROTHIAZIDE TABS Take one by mouth daily HYDROCHLOROTHIAZIDE TABS 22178463804 Active Alex ALVAREZ Active NORVASC 10 MG TAB 1 tablet by mouth daily AMLODIPINE BESYLATE 25701535902 No Longer Active Alex ALVAREZ Active PROTONIX 40 MG SOLR 1 po qday for acid reflux PANTOPRAZOLE SODIUM 70032284242 Active Robbie Busby MD Active IMDUR 60 MG TAB CR take 1 tab po qday for blood pressure ISOSORBIDE MONONITRATE Active Robbie Busby MD Active ISOSORBIDE DINITRATE 30 MG TABS Take one by mouth daily ISOSORBIDE DINITRATE 34833080105 No Longer Active Robbie Busby MD Active VIIBRYD 40 MG TABS take 1 tab po qday for depression. VILAZODONE HCL 34929440960 Active Robbie Busby MD Active VIIBRYD 40 MG TABS 1 TA B PO DAILY VILAZODONE HCL 85546944779 Active Robbie Busby MD Active LORATADINE 10 MG TABS 1 tablet by mouth daily for congestion and allergies. LORATADINE 22801628860 Active Robbie Busby MD Active ZITHROMAX 250 MG TAB 2 po today, then 1 po q days 2-5 AZITHROMYCIN 16215145902 No Longer Active Robbie Busby MD Active HYDROCODONE-ACETAMINOPHEN 5-325 MG TABS 1 tab by mouth BID prn back pain 2013 HYDROCODONE-ACETAMINOPHEN 80587039596 Active Robbie Busby MD Active HYDRALAZINE HCL 50 MG TABS take 1 tab po QID for high blood pressure HYDRALAZINE HCL 23569782113 Active Robbie Busby MD Active [id number] 0.3 MG/24HR PTWK apply 2 patches q week for HTN CLONIDINE HCL 78796175284 Active Robbie Busby MD Active FENOFIBRATE 145 MG TABS Take one by mouth daily FENOFIBRATE 17833691657 Active Robbie Busby MD Active NITROSTAT 0.4 MG SUBL PRN NITROGLYCERIN 34618994566 Active Robbie Busby MD Active DOXAZOSIN MESYLATE 4 MG TABS Take one by mouth daily DOXAZOSIN MESYLATE 66370283913 Active Robbie Busby MD Active HYDRALAZINE HCL 25 MG TABS 1 tablet by mouth tid for hypertension HYDRALAZINE HCL 29981224556 Active Robbie Busby MD Active TOPROL XL 200 MG [id number] Take one by mouth daily METOPROLOL SUCCINATE 41729770497 Active Robbie Busby MD Active SPIRONOLACTONE 50 MG TABS 1 tablet by mouth twice a day SPIRONOLACTONE 06104860563 Active Robbie Busby MD Active VENLAFAXINE HCL ER 150 MG [id number] Take one by mouth daily VENLAFAXINE HCL 96166014438 Active Robbie Busby MD Active LIPITOR 40 MG TABS Take one by mouth daily ATORVASTATIN CALCIUM 27853812207 Active Robbie Busby MD Active ISOSORBIDE DINITRATE 30 MG TABS Take one by mouth daily ISOSORBIDE DINITRATE 30 MG TABS 471342 ISOSORBIDE DINITRATE Inactive NORVASC 10 MG TAB 1 tablet by mouth daily NORVASC 10 MG TAB 905168 AMLODIPINE BESYLATE Inactive AZITHROMYCIN 250 MG ORAL TABS 2 tablets PO today---then, 1 tablet PO daily x 4 more days (and 1 optional refill) AZITHROMYCIN 250 MG ORAL TABS 7441218 AZITHROMYCIN Inactive CHERATUSSIN AC 100-10 MG/5ML ORAL SOLN 7.5 mL PO q 4-6 hrs PRN cough CHERATUSSIN AC 100-10 MG/5ML ORAL SOLN 905283 GUAIFENESIN- CODEINE Inactive ZITHROMAX 250 MG TAB 2 po today, then 1 po q days 2-5 ZITHROMAX 250 MG TAB 0618183 AZITHROMYCIN Inactive Vital Signs Date Name Value [...] E&M - 3141-9 199 [lb_av] Weight Measured Diagnostic Results Date Name [...] 2+ mg/dL Negative sodium, serum 144 mmol/L 788-965 7134/07/07 potassium, serum 3.9 mmol/L 3.5-5.2 chloride, serum [...] Panel - Chemistry sodium, serum 141 mmol/L 482-585 8300/12/05 potassium, serum 4.0 mmol/L 3.5-5.2 chloride, serum [...] mg/dL Encounters Code Encounter Date Provider Facility CPT-66210 Level 4 Est. Patient 10:30:43 CDT Robbie Busby MD [facility] CPT-53104 Level 3 Est. Patient 17:08:12 CDT Alex Shaw [facility] CPT-49108 Level 4 Est. Patient 17:51:38 CDT Robbie Busby MD [facility] CPT-48494 Level 4 Est. Patient 14:00:21 CDT Robbie Busby MD [facility] CPT-77313 Level 4 Est. Patient 12:46:48 CDT Robbie Busby MD [facility] CPT-73705 Level 4 Est. Patient 13:34:33 CDT Robbie Busby MD [facility] CPT-26579 Level 4 Est. Patient 16:58:28 CDT Robbie Busby MD [facility] CPT-70587 Level 3 Est. Patient 19:36:53 CDT Alex ALVAREZ [facility] CPT-93625 Level 3 Est. Patient 12:58:15 CDT Robbie Busby MD [facility] Procedures Code Procedure Name Date Entry Date Standard Description CPT-G0008 Administration of Influenza Virus Vaccine 16:09:59 CDT CPT-61191 Fluzone Quadrivalent Intramuscular Suspension 0.5 ML 16: 09:59 CDT CPT-28865 Spec Collection and Handling Fee 15:05:50 CDT
--- OUTSIDE RECORDS SUMMARY | 2018-04-18 10:30 | XMS REPORT | Clinical Summary ---
Author Author Admin, AKUA Organization [facility] Address Unknown Phone Unavailable Allergies, Adverse Reactions, [...] 2 weeks for low testosterone TESTOSTERONE CYPIONATE 17409732198 Active Zulema Blank LPN Active CYCLOBENZAPRINE HCL 10 MG ORAL TABS 1 po TID PRN muscle spasm/pain for 10 days CYCLOBENZAPRINE HCL 70935922116 Active JONATHAN Moncada Active GUAIFENESIN 600 MG [id number] 1 tab po q am GUAIFENESIN 44269755680 Active Rober Rordíguez [facility] Active FLUTICASONE PROPIONATE 50 MCG/ACT SUSP 2 sprays per nostril bid for 1 week, then 1 spray bid FLUTICASONE PROPIONATE 67700626420 Active Jillina Frazelariana GONZALEZN Active HYDRALAZINE HCL 25 MG ORAL TABS Take 1 tab BID. HYDRALAZINE HCL 68937839040 Active Jillina Anne GONZALEZN Active VITAMIN D3 08147 UNIT ORAL TABS 2 po weekly CHOLECALCIFEROL 85159564307 Active Robbie Busby MD Active OXYCODONE HCL ER 10 MG ORAL T12A 1 tab po 3 times qd. OXYCODONE HCL 50710820037 Active Robbie Busby MD Active NITROSTAT 0.4 MG SUBL PRN NITROGLYCERIN 92459739920 No Longer Active Robbie Busby MD Active LORATADINE 10 MG TABS 1 tablet by mouth daily for congestion and allergies. LORATADINE 65527051250 No Longer Active Robbie Busby MD Active FLONASE 50 MCG/ACT SUSP 1 spray each nostril twice daily for allergies and runny nose FLUTICASONE PROPIONATE 38415325356 No Longer Active Robbie Busby MD Active FIORICET 50-300-40 MG ORAL CAPS take 1 tab po qday prn migraines. [id number] 20122588755 No Longer Active Robbie Busby MD Active VITAMIN D3 32319 UNIT CAPS 2 CAPS PO WEEKLY CHOLECALCIFEROL 42816038054 No Longer Active Robbie Busby MD Active CYCLOBENZAPRINE HCL 10 MG TABS 1 tablet by mouth three times daily as needed for muscle spasm/pain for 10 days CYCLOBENZAPRINE HCL 92180297756 No Longer Active Robbie Busby MD Active PREDNISONE 20 MG TAB take 3 tabs daily for 3 days, 2 tabs daily for 3 days, 1 tab daily for 3 days, 1/2 tab daily for 4 days PREDNISONE 85301970331 No Longer Active Erin Garsia APRN Active CLONIDINE HCL 0.2 MG ORAL TABS 1 TAB BY MOUTH EVERY 8 HOURS 12/29 CLONIDINE HCL 80346159784 No Longer Active Erin Garsia APRN Active MECLIZINE HCL 25 MG TAB one 4 times a day as needed for dizziness MECLIZINE HCL 88012317953 No Longer Active Erin Garsia APRN Active SPIRONOLACTONE 25 MG TAB 4 tablets by mouth daily SPIRONOLACTONE 67616287486 No Longer Active Erin Garsia APRN Active LEVAQUIN 500 MG TAB 1 tablet by mouth daily for 7 days LEVOFLOXACIN 78471169155 No Longer Active Erin Garsia APRN Active BACTRIM DS 800-160 MG TAB 1 tab by mouth twice daily TRIMETHOPRIM-SULFAMETHOXAZOLE 03820435284 No Longer Active Robbie Busby MD Active HYDRALAZINE HCL 50 MG ORAL TABS TWO BY MOUTH THREE TIMES DAILY HYDRALAZINE HCL 26048761585 No Longer Active 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 [facility] Active HYDROCODONE-ACETAMINOPHEN 5-325 MG TABS 1 tab by mouth BID prn back pain 2013 HYDROCODONE-ACETAMINOPHEN 85759422332 No Longer Active 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 [facility] Active HYDROCHLOROTHIAZIDE TABS Take one by mouth daily HYDROCHLOROTHIAZIDE TABS 19818559962 No Longer Active 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 [facility] Active LAMISIL 125 MG ORAL PACK 1 TAB PO DAILY TERBINAFINE HCL 90664051803 No Longer Active 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 [facility] Active TRILEPTAL 150 MG ORAL TABS 1 TAB PO Q HS OXCARBAZEPINE 23162590616 No Longer Active 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 [facility] Active BETADINE 10 % EXT SOLN 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 POVIDONE-IODINE 14397516182 No Longer Active 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 [facility] Active NYSTATIN 009913 UNIT/ML M/T SUSP 5mL po QID x 10 days NYSTATIN 83295484668 No Longer Active Erin Ady [facility] Active PREDNISONE 20 MG TAB 1 tablet twice daily for 2 days, then 1 tablet once daily for 2 days PREDNISONE 84161634402 No Longer Active Robbie Busby MD Active CEFDINIR 300 MG ORAL CAPS Take 1 cap po bid x 10 days CEFDINIR 73121141395 No Longer Active Robbie Busby MD Active AMLODIPINE BESYLATE 10 MG TABS 1 tablet by mouth daily AMLODIPINE BESYLATE 78784914866 Active Robbie Busby MD Active CARVEDILOL 25 MG TABS 1 & 1/2 TAB po BID CARVEDILOL 64248144381 Active Robbie Busby MD Active NEXIUM 40 MG CPDR 1 cap by mouth daily ESOMEPRAZOLE MAGNESIUM 40217894802 Active Robbie Busby MD Active PROTONIX 40 MG SOLR 1 po qday for acid reflux PANTOPRAZOLE SODIUM 44825199895 No Longer Active Gali Raida Active KEFLEX 500 MG CAP 1 po TID x 10 days CEPHALEXIN 24894317207 No Longer Active Robbie Busby MD Active TOPIRAMATE 50 MG ORAL TABS take 1 tab po BID for migraines. TOPIRAMATE 00167695394 Active Robbie Busby MD Active TEMAZEPAM 15 MG ORAL CAPS 1 TAB PO Q HS TEMAZEPAM 40032070896 Active Robbie Busby MD Active ALPRAZOLAM 2 MG ORAL TABS 1 TAB PO BID ALPRAZOLAM 85649501789 Active Robbie Busby MD Active FENOFIBRATE 145 MG TABS Take one by mouth daily FENOFIBRATE 29681240291 No Longer Active Robbie Busby MD Active SPIRONOLACTONE 50 MG TABS 1 tablet by mouth twice a day SPIRONOLACTONE 62378058361 No Longer Active Robbie Busby MD Active HYDRALAZINE HCL 25 MG TABS 1 tablet by mouth tid for hypertension HYDRALAZINE HCL 10812784027 No Longer Active Robbie Busby MD Active VIIBRYD 40 MG TABS take 1 tab po qday for depression. VILAZODONE HCL 19141706930 No Longer Active Robbie Busby MD Active TERBINAFINE HCL 250 MG TABS 1 tab po qday for foot infection 2014 TERBINAFINE HCL 36900935289 No Longer Active Robbie Busby MD Active GABAPENTIN 300 MG CAPS 1 po q hs for nerve pain GABAPENTIN 22255741004 Active Robbie Busby MD Active CHERATUSSIN AC 100-10 MG/5ML ORAL SOLN 7.5 mL PO q 4-6 hrs PRN cough GUAIFENESIN-CODEINE 77328123207 No Longer Active Robbie Busby MD Active AZITHROMYCIN 250 MG ORAL TABS 2 tablets PO today---then, 1 tablet PO daily x 4 more days (and 1 optional refill) AZITHROMYCIN 28386086445 No Longer Active Robbie Busby MD Active NORVASC 10 MG TAB 1 tablet by mouth daily AMLODIPINE BESYLATE 06116726380 No Longer Active Alex ALVAREZ Active IMDUR 60 MG TAB CR take 1 tab po qday for blood pressure ISOSORBIDE MONONITRATE Active Robbie Busby MD Active ISOSORBIDE DINITRATE 30 MG TABS Take one by mouth daily ISOSORBIDE DINITRATE 31627780952 No Longer Active Robbie Busby MD Active VIIBRYD 40 MG TABS 1 TA B PO DAILY VILAZODONE HCL 12778977919 Active Robbie Busby MD Active ZITHROMAX 250 MG TAB 2 po today, then 1 po q days 2-5 AZITHROMYCIN 03105574643 No Longer Active Robbie Bsuby MD Active [id number] 0.3 MG/24HR PTWK apply 2 patches q week for HTN CLONIDINE HCL 99367080119 Active Robbie Busby MD Active DOXAZOSIN MESYLATE 4 MG TABS Take one by mouth daily DOXAZOSIN MESYLATE 95562880883 Active Robbie Busby MD Active TOPROL XL 200 MG [id number] Take one by mouth daily METOPROLOL SUCCINATE 97262974926 Active Robbie Busby MD Active VENLAFAXINE HCL ER 150 MG [id number] Take one by mouth daily VENLAFAXINE HCL 89411494749 Active Robbie Busby MD Active LIPITOR 40 MG TABS Take one by mouth daily ATORVASTATIN CALCIUM 13125821466 Active Robbie Busby MD Active HYDROCHLOROTHIAZIDE TABS Take one by mouth daily HYDROCHLOROTHIAZIDE TABS HYDROCHLOROTHIAZIDE TABS Inactive BACTRIM DS 800-160 MG TAB 1 tab by mouth twice daily BACTRIM DS 800-160 MG TAB 865428 TRIMETHOPRIM-SULFAMETHOXAZOLE Inactive BETADINE 10 % EXT SOLN 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 BETADINE 10 % EXT SOLN 1953144 POVIDONE-IODINE Inactive CLONIDINE HCL 0.2 MG ORAL TABS 1 TAB BY MOUTH EVERY 8 HOURS 12/29 CLONIDINE HCL 0.2 MG ORAL TABS 472668 CLONIDINE HCL Inactive CYCLOBENZAPRINE HCL 10 MG TABS 1 tablet by mouth three times daily as needed for muscle spasm/pain for 10 days CYCLOBENZAPRINE HCL 10 MG TABS 130686 CYCLOBENZAPRINE HCL Inactive HYDRALAZINE HCL 25 MG TABS 1 tablet by mouth tid for hypertension HYDRALAZINE HCL 25 MG TABS 191555 HYDRALAZINE HCL Inactive HYDRALAZINE HCL 50 MG ORAL TABS TWO BY MOUTH THREE TIMES DAILY HYDRALAZINE HCL 50 MG ORAL TABS 857171 HYDRALAZINE HCL Inactive ISOSORBIDE DINITRATE 30 MG TABS Take one by mouth daily ISOSORBIDE DINITRATE 30 MG TABS 050283 ISOSORBIDE DINITRATE Inactive KEFLEX 500 MG CAP 1 po TID x 10 days KEFLEX 500 MG CAP 440757 CEPHALEXIN Inactive NITROSTAT 0.4 MG SUBL PRN NITROSTAT 0.4 MG SUBL 449465 NITROGLYCERIN Inactive NORVASC 10 MG TAB 1 tablet by mouth daily NORVASC 10 MG TAB 417584 AMLODIPINE BESYLATE Inactive NYSTATIN 576646 UNIT/ML M/T SUSP 5mL po QID x 10 days NYSTATIN 474332 UNIT/ML M/T SUSP 769695 NYSTATIN Inactive PREDNISONE 20 MG TAB 1 tablet twice daily for 2 days, then 1 tablet once daily for 2 days PREDNISONE 20 MG TAB 436833 PREDNISONE Inactive PREDNISONE 20 MG TAB take 3 tabs daily for 3 days, 2 tabs daily for 3 days, 1 tab daily for 3 days, 1/2 tab daily for 4 days PREDNISONE 20 MG TAB 209966 PREDNISONE Inactive SPIRONOLACTONE 25 MG TAB 4 tablets by mouth daily SPIRONOLACTONE 25 MG TAB 699527 SPIRONOLACTONE Inactive LORATADINE 10 MG TABS 1 tablet by mouth daily for congestion and allergies. LORATADINE 10 MG TABS 289912 LORATADINE Inactive SPIRONOLACTONE 50 MG TABS 1 tablet by mouth twice a day SPIRONOLACTONE 50 MG TABS 276856 SPIRONOLACTONE Inactive MECLIZINE HCL 25 MG TAB one 4 times a day as needed for dizziness MECLIZINE HCL 25 MG TAB 959856 MECLIZINE HCL Inactive TERBINAFINE HCL 250 MG TABS 1 tab po qday for foot infection 2014 TERBINAFINE HCL 250 MG TABS 721751 TERBINAFINE HCL Inactive LEVAQUIN 500 MG TAB 1 tablet by mouth daily for 7 days LEVAQUIN 500 MG TAB 358499 LEVOFLOXACIN Inactive ZITHROMAX 250 MG TAB 2 po today, then 1 po q days 2-5 ZITHROMAX 250 MG TAB 6947704 AZITHROMYCIN Inactive AZITHROMYCIN 250 MG ORAL TABS 2 tablets PO today---then, 1 tablet PO daily x 4 more days (and 1 optional refill) AZITHROMYCIN 250 MG ORAL TABS 9419834 AZITHROMYCIN Inactive CEFDINIR 300 MG ORAL CAPS Take 1 cap po bid x 10 days CEFDINIR 300 MG ORAL CAPS 075670 CEFDINIR Inactive TRILEPTAL 150 MG ORAL TABS 1 TAB PO Q HS TRILEPTAL 150 MG ORAL TABS 551099 OXCARBAZEPINE Inactive PROTONIX 40 MG SOLR 1 po qday for acid reflux PROTONIX 40 MG SOLR 314621 PANTOPRAZOLE SODIUM Inactive FLONASE 50 MCG/ACT SUSP 1 spray each nostril twice daily for allergies and runny nose FLONASE 50 MCG/ACT SUSP 1325504 FLUTICASONE PROPIONATE Inactive HYDROCODONE-ACETAMINOPHEN 5-325 MG TABS 1 tab by mouth BID prn back pain 2013 HYDROCODONE-ACETAMINOPHEN 5-325 MG TABS 330898 HYDROCODONE -ACETAMINOPHEN Inactive FENOFIBRATE 145 MG TABS Take one by mouth daily FENOFIBRATE 145 MG TABS 408494 FENOFIBRATE Inactive LAMISIL 125 MG ORAL PACK 1 TAB PO DAILY LAMISIL 125 MG ORAL PACK TERBINAFINE HCL Inactive VIIBRYD 40 MG TABS take 1 tab po qday for depression. VIIBRYD 40 MG TABS VILAZODONE HCL Inactive VITAMIN D3 99814 UNIT CAPS 2 CAPS PO WEEKLY VITAMIN D3 98719 UNIT CAPS CHOLECALCIFEROL Inactive CHERATUSSIN AC 100-10 MG/5ML ORAL SOLN 7.5 mL PO q 4-6 hrs PRN cough CHERATUSSIN AC 100-10 MG/5ML ORAL SOLN 625023 GUAIFENESIN- CODEINE Inactive FIORICET 50-300-40 MG ORAL CAPS take 1 tab po qday prn migraines. FIORICET 50-300-40 MG ORAL CAPS 854385 [id number]-VCTLOEXR Inactive Advance Directives Directive Description Start Date [...] Range Description Lab Report: CBC - Hematology hematocrit, blood 42.4 % 41.0-53.0 mean corpuscular volume, RBC 90 fL 80-97 mean corpuscular hemoglobin, RBC 30.4 pg 27.0-31.2 mean corpuscular hemoglobin concentration, RBC 33.9 G/DL % 31.8- 35.4 red blood cell distribution width 15.4 % 11.6-14.8 platelet count 229 10^3/MM^3 10*3/mm3 686-275 0146/09/06 hemoglobin, blood 14.4 g/dL 13.5-17.5 erythrocyte (RBC) count 4.72 10^6/MM^3 10*6/mm3 4.69-6.13 leukocyte count, blood 9.7 10^3/MM^3 10*3/mm3 4.6-10.2 Lab Report: CBC W/DIFF, Comp. Metabolic Panel, CKI, UADIP W/MICRO, AUTO - Chemistry sodium, serum 142 mmol/L 856-817 7770/07/17 carbon dioxide, venous blood 28.2 mmol/L 21.0-32.0 [...] Panel, CKI, UADIP W/MICRO, AUTO - Hematology monocytes as percent of blood leukocytes 6.8 % 2.0-10.0 lymphocytes as percent of blood leukocytes 35.6 % 20.0-40.0 erythrocyte (RBC) count 4.83 10^6/MM^3 10*6/mm3 4.50-6.50 leukocyte count, blood 10.9 10^3/MM^3 10*3/mm3 4.6-10.2 neutrophils as percent of blood leukocytes 55.7 % 40.0-80.0 hemoglobin, blood 14.7 g/dL 14.0-18.0 hematocrit, blood [...] % 11.0-15.0 platelet count 185 THOUSAND/UL 10*3/mm3 535-373 7104/04/14 mean platelet volume 10.9 fL 7.5-12.5 Lab Report: LIPID PANEL, TSH/899, T4, FREE/866 - Chemistry cholesterol, serum 220 mg/dL 612-784 5504/04/14 HDL cholesterol, serum 30 mg/dL > OR=40 [...] 1.80 ng/mL 0.00-4.00 Lab Report: VITAMIN D, 25-HYDROXY/09281 - Chemistry vitamin D 25-hydroxy, serum 25 ng/mL 30-100 Office Visit: Confusion, dizziness after fall - Basic LDL target level 130 mg/dL Office Visit: Confusion, dizziness after fall - Chemistry HDL cholesterol, serum, target level 40 mg/dL triglyceride, target level 150 mg/dL cholesterol, target level 200 mg/dL Encounters Code Encounter Date Provider Facility CPT-99752 Level 4 Est. Patient 15:18:19 CDT Robbie Busby MD [facility] CPT-88194 Level 3 Est. Patient 09:00:37 CDT Rober Rodríguez [facility] CPT-45482 Level 3 Est. Patient 16:07:10 CDT Robbie Busby MD [facility] CPT-33664 Level 4 Est. Patient 11:56:16 CDT Erin Garsia [facility] CPT-33594 Level 3 Est. Patient 17:48:02 CDT Robbie Busby MD [facility] CPT-42358 Level 4 Est. Patient 12:00:49 PLASTIC PRESS OPERATOR Rober Rodríguez [facility] CPT-98526 Level 3 Est. Patient 09:16:37 CDT Robbie Busby MD [facility] CPT-66666 Level 3 Est. Patient 19:38:43 CDT Robbie Busby MD [facility] CPT-15318 Level 3 Est. Patient 11:53:38 CDT Robbie Busby MD [facility] CPT-81288 Level 4 Est. Patient 12:52:22 CDT Rober Rodríguez [facility] CPT-88784 Level 4 Est. Patient 22:55:17 CDT Robbie Busby MD [facility] CPT-52379 Level 3 Est. Patient 12:38:24 CDT Desmond Diaz DO [facility] CPT-83984 Level 4 Est. Patient 11:25:03 PLASTIC PRESS OPERATOR Robbie Busby MD [facility] CPT-76554 Level 4 Est. Patient 14:50:10 CDT Robbie Busby MD [facility] CPT-82280 Level 4 Est. Patient 23:30:43 CDT Robbie Busby MD [facility] CPT-51347 Level 4 Est. Patient 10:30:43 CDT Robbie Busby MD [facility] CPT-68769 Level 3 Est. Patient 17:08:12 CDT Alex Shaw [facility] CPT-14511 Level 4 Est. Patient 17:51:38 CDT Robbie Busby MD [facility] CPT-49518 Level 4 Est. Patient 14:00:21 CDT Robbie Busby MD [facility] CPT-86146 Level 4 Est. Patient 12:46:48 CDT Robbie Busby MD [facility] CPT-25691 Level 4 Est. Patient 13:34:33 CDT Robbie Busby MD [facility] CPT-64509 Level 4 Est. Patient 16:58:28 CDT Robbie Busby MD [facility] CPT-87361 Level 3 Est. Patient 19:36:53 CDT Alex Shaw [facility] CPT-09832 Level 3 Est. Patient 12:58:15 CDT Robbie Busby MD [facility] Procedures Code Procedure Name Date Entry Date Standard Description CPT-J1071 Depo Testosterone 200mg 08:30:01 CDT CPT-84624 Abx/Therapy Injection 08:30:01 CDT CPT-J1071 Depo Testosterone 200mg 08:24:00 CDT CPT-27421 Abx/Therapy Injection 08:24:00 CDT CPT-22629 Venipuncture Draw Fee 14:39:06 CDT CPT-20576 Ribs unilateral 2V - XRAY USE ONLY 12:10:11 CDT CPT-33955 First Vx - Ix admin for Medicare patients 16:32:53 CDT CPT-79052 Boostrix Intramuscular Suspension 5-2.5-18.5 16:32:53 CDT CPT-37930 TB Skin Test 11:42:28 CDT CPT-79032 Tdap 7yrs or > 11:42:28 CDT CPT-J0696 Rocephin 1000 mg (Ceftriaxone) 17:43:43 PLASTIC PRESS OPERATOR CPT-J1040 Depo Medrol 80 mg (Methyl Prednisolone Acetate) 17:43: 43 PLASTIC PRESS OPERATOR CPT-J1100 Decadron 8mg (Dexamethasone) 17:43:42 PLASTIC PRESS OPERATOR CPT-37438 Abx/Therapy Injection 17:43:42 PLASTIC PRESS OPERATOR CPT-03335 Abx/Therapy Injection 17:43:42 PLASTIC PRESS OPERATOR CPT-J1040 Depo Medrol 80 mg (Methyl Prednisolone Acetate) 09:43: 34 PLASTIC PRESS OPERATOR CPT-J1100 Decadron 8mg (Dexamethasone) 09:43:34 PLASTIC PRESS OPERATOR CPT-J0696 Rocephin 1gm Inj Solr 09:43:34 PLASTIC PRESS OPERATOR CPT-49319 Wound Culture - LAB USE ONLY 14:00:21 CDT CPT-I/D I/D Abscess 09:16:37 CDT CPT-02556 Venipuncture Draw Fee 15:20:23 CDT CPT-20186 Microalbumin - LAB USE ONLY 16:02:19 CDT CPT-30743 CBC - LAB USE ONLY 16:02:19 CDT CPT-74515 Venipuncture Draw Fee 16:02:19 CDT CPT-G0438 Initial Annual Wellness Exam 08:10:28 CDT CPT-15108 Venipuncture Draw Fee 13:07:17 CDT CPT-G0008 Administration of Influenza Virus Vaccine 16:09:59 CDT CPT-17148 Fluzone Quadrivalent Intramuscular Suspension 0.5 ML 16: 09:59 CDT CPT-20528 Spec Collection and Handling Fee 15:05:50 CDT
--- OUTSIDE RECORDS SUMMARY | 2018-04-18 10:31 | XMS REPORT | Clinical Summary ---
Author Author Admin, [employer] Organization [employer] Address Unknown Phone Unavailable Allergies, Adverse Reactions, [...] unspecified sites URI 465.9 Active Rober Rodríguez [employer] Acute upper respiratory infections of unspecified site [...] Hypogonadism, low testosterone 257.2 Active Erin Garsia APRN Other testicular hypofunction Low back pain, chronic 724.2 Active Robbie Busby MD [facility] Medication List Medication Instructions Start Date Stop Date Generic Name NDC Status Provider Patient Instruction GUAIFENESIN ER 600 MG ORAL TABLET EXTENDED RELEASE 12 HOUR 1 tab po q am 2016 GUAIFENESIN [id number] No Longer Active Robbie Busby MD Active DIVALPROEX SODIUM ER 500 MG ORAL TABLET EXTENDED RELEASE 24 HOUR Once daily DIVALPROEX SODIUM 23963629862 Active Robbie Busby MD Active DEPO-TESTOSTERONE 200 MG/ML INTRAMUSCULAR SOLUTION 1 IM Injections every 2 weeks for low testosterone TESTOSTERONE CYPIONATE 77652485491 Active Zulema Blank LPN Active CYCLOBENZAPRINE HCL 10 MG ORAL TABLET 1 po TID PRN muscle spasm/pain for 10 days CYCLOBENZAPRINE HCL 49993172053 Active JONATHAN Moncada Active FLUTICASONE PROPIONATE 50 MCG/ACT NASAL SUSPENSION 2 sprays per nostril bid for 1 week, then 1 spray bid FLUTICASONE PROPIONATE 27176926061 Active Rober Rodríguez [employer] Active HYDRALAZINE HCL 25 MG ORAL TABLET Take 1 tab BID. HYDRALAZINE HCL 72288299718 Active Rober Rodríguez APRN Active VITAMIN D3 15525 UNIT ORAL TABLET 2 po weekly CHOLECALCIFEROL 21029609504 Active Robbie Busby MD Active OXYCODONE HCL ER 10 MG ORAL TABLET ER 12 HOUR ABUSE-DETERRENT 1 tab po 3 times qd. OXYCODONE HCL 28862533521 Active Robbie Busby MD Active NITROSTAT 0.4 MG SUBLINGUAL TABLET SUBLINGUAL PRN NITROGLYCERIN 60187039218 No Longer Active Robbie Busby MD Active LORATADINE 10 MG ORAL TABLET 1 tablet by mouth daily for congestion and allergies. LORATADINE 03350789022 No Longer Active Robbie Busby MD Active FLONASE 50 MCG/ACT NASAL SUSPENSION 1 spray each nostril twice daily for allergies and runny nose FLUTICASONE PROPIONATE 77320276829 No Longer Active Robbie Busby MD Active FIORICET 50-300-40 MG ORAL CAPSULE take 1 tab po qday prn migraines. [id number] 00016577491 No Longer Active Robbie Busby MD Active VITAMIN D3 74029 UNIT ORAL CAPSULE 2 CAPS PO WEEKLY CHOLECALCIFEROL 82686209527 No Longer Active Robbie Busby MD Active CYCLOBENZAPRINE HCL 10 MG ORAL TABLET 1 tablet by mouth three times daily as needed for muscle spasm/pain for 10 days CYCLOBENZAPRINE HCL 48241708614 No Longer Active Robbie Busby MD Active PREDNISONE 20 MG ORAL TABLET take 3 tabs daily for 3 days, 2 tabs daily for 3 days, 1 tab daily for 3 days, 1/2 tab daily for 4 days PREDNISONE 73233178390 No Longer Active Erin Garsia APRN Active CLONIDINE HCL 0.2 MG ORAL TABLET 1 TAB BY MOUTH EVERY 8 HOURS CLONIDINE HCL 22458932918 No Longer Active Erin Garsia APRN Active MECLIZINE HCL 25 MG ORAL TABLET one 4 times a day as needed for dizziness MECLIZINE HCL 90620209783 No Longer Active Erin Garsia APRN Active SPIRONOLACTONE 25 MG ORAL TABLET 4 tablets by mouth daily SPIRONOLACTONE 48030979839 No Longer Active Erin Garsia APRN Active LEVAQUIN 500 MG ORAL TABLET 1 tablet by mouth daily for 7 days LEVOFLOXACIN 54411613608 No Longer Active Erin Garsia APRN Active BACTRIM DS 800-160 MG ORAL TABLET 1 tab by mouth twice daily 2015 TRIMETHOPRIM-SULFAMETHOXAZOLE 13685828386 No Longer Active Robbie Busby MD Active HYDRALAZINE HCL 50 MG ORAL TABLET TWO BY MOUTH THREE TIMES DAILY HYDRALAZINE HCL 28405644348 No Longer Active Rober Rodríguez APRN Active HYDROCODONE-ACETAMINOPHEN 5-325 MG ORAL TABLET 1 tab by mouth BID prn back pain HYDROCODONE-ACETAMINOPHEN 55245711940 No Longer Active Jillld Rodríguez APRN Active HYDROCHLOROTHIAZIDE TABLET Take one by mouth daily HYDROCHLOROTHIAZIDE TABS 62258961239 No Longer Active Andrellld Rodríguez APRN Active LAMISIL 125 MG ORAL PACKET 1 TAB PO DAILY TERBINAFINE HCL 49012096101 No Longer Active Andrellld Rodríguez APRN Active TRILEPTAL 150 MG ORAL TABLET 1 TAB PO Q HS OXCARBAZEPINE 10444445785 No Longer Active Rober Rodríguez APRN Active BETADINE 10 % EXTERNAL SOLUTION 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 07/29 POVIDONE-IODINE 44797562868 No Longer Active Rober Rodríguez APRN Active NYSTATIN 346454 UNIT/ML MOUTH/THROAT SUSPENSION 5mL po QID x 10 days NYSTATIN 00517096253 No Longer Active Erin Garsia APRN Active PREDNISONE 20 MG ORAL TABLET 1 tablet twice daily for 2 days, then 1 tablet once daily for 2 days PREDNISONE 35342939649 No Longer Active Robbie Busby MD Active CEFDINIR 300 MG ORAL CAPSULE Take 1 cap po bid x 10 days CEFDINIR 72852131229 No Longer Active Robbie Busby MD Active AMLODIPINE BESYLATE 10 MG ORAL TABLET 1 tablet by mouth daily AMLODIPINE BESYLATE 45162782222 Active Robbie Busby MD Active CARVEDILOL 25 MG ORAL TABLET 1 & 1/2 TAB po BID CARVEDILOL 27784629570 Active Robbie Busby MD Active NEXIUM 40 MG ORAL CAPSULE DELAYED RELEASE 1 cap by mouth daily ESOMEPRAZOLE MAGNESIUM 97022959045 Active Robbie Busby MD Active PROTONIX 40 MG INTRAVENOUS SOLUTION RECONSTITUTED 1 po qday for acid reflux PANTOPRAZOLE SODIUM 26327792558 No Longer Active Gali Raida Active KEFLEX 500 MG ORAL CAPSULE 1 po TID x 10 days CEPHALEXIN 23553767139 No Longer Active Robbie Busby MD Active TOPIRAMATE 50 MG ORAL TABLET take 1 tab po BID for migraines. TOPIRAMATE 66090112415 Active Robbie Busby MD Active TEMAZEPAM 15 MG ORAL CAPSULE 1 TAB PO Q HS TEMAZEPAM 14098369301 Active Robbie Busby MD Active ALPRAZOLAM 2 MG ORAL TABLET 1 TAB PO BID ALPRAZOLAM 77672618833 Active Robbie Busby MD Active FENOFIBRATE 145 MG ORAL TABLET Take one by mouth daily FENOFIBRATE 41630608440 No Longer Active Robbie Busby MD Active SPIRONOLACTONE 50 MG ORAL TABLET 1 tablet by mouth twice a day SPIRONOLACTONE 49330707088 No Longer Active Robbie Busby MD Active HYDRALAZINE HCL 25 MG ORAL TABLET 1 tablet by mouth tid for hypertension 2013 HYDRALAZINE HCL 80473098323 No Longer Active Robbie Busby MD Active VIIBRYD 40 MG ORAL TABLET take 1 tab po qday for depression. 2014 VILAZODONE HCL 57830853171 No Longer Active Robbie Busby MD Active TERBINAFINE HCL 250 MG ORAL TABLET 1 tab po qday for foot infection TERBINAFINE HCL 53702338328 No Longer Active Robbie Busby MD Active GABAPENTIN 300 MG ORAL CAPSULE 1 po q hs for nerve pain GABAPENTIN 21266269867 Active Robbie Busby MD Active CHERATUSSIN AC 100-10 MG/5ML ORAL SOLUTION 7.5 mL PO q 4-6 hrs PRN cough 2014 GUAIFENESIN-CODEINE 30739247491 No Longer Active Robbie Busby MD Active AZITHROMYCIN 250 MG ORAL TABLET 2 tablets PO today---then, 1 tablet PO daily x 4 more days (and 1 optional refill) AZITHROMYCIN 95248842172 No Longer Active Robbie Busby MD Active NORVASC 10 MG ORAL TABLET 1 tablet by mouth daily AMLODIPINE BESYLATE 62940322787 No Longer Active Alex ALVAREZ Active IMDUR 60 MG ORAL TABLET EXTENDED RELEASE 24 HOUR take 1 tab po qday for blood pressure ISOSORBIDE MONONITRATE 24513942971 Active Robbie Busby MD Active ISOSORBIDE DINITRATE 30 MG ORAL TABLET Take one by mouth daily ISOSORBIDE DINITRATE 12177987015 No Longer Active Robbie Busby MD Active VIIBRYD 40 MG ORAL TABLET 1 TA B PO DAILY VILAZODONE HCL 03255144010 Active Robbie Busby MD Active ZITHROMAX 250 MG ORAL TABLET 2 po today, then 1 po q days 2-5 AZITHROMYCIN 92358918247 No Longer Active Robbie Busby MD Active [id number] 0.3 MG/24HR TRANSDERMAL PATCH WEEKLY apply 2 patches q week for HTN CLONIDINE HCL 74109899797 Active Robbie Busby MD Active DOXAZOSIN MESYLATE 4 MG ORAL TABLET Take one by mouth daily DOXAZOSIN MESYLATE 68460834837 Active Robbie Busby MD Active TOPROL XL 200 MG ORAL TABLET EXTENDED RELEASE 24 HOUR Take one by mouth daily METOPROLOL SUCCINATE 30446932288 Active Robbie Busby MD Active VENLAFAXINE HCL ER 150 MG ORAL TABLET EXTENDED RELEASE 24 HOUR Take one by mouth daily VENLAFAXINE HCL 40327311454 Active Robbie Busby MD Active LIPITOR 40 MG ORAL TABLET Take one by mouth daily ATORVASTATIN CALCIUM 32300583299 Active Robbie Busby MD Active ISOSORBIDE DINITRATE 30 MG ORAL TABLET Take one by mouth daily ISOSORBIDE DINITRATE 30 MG ORAL TABLET 815531 ISOSORBIDE DINITRATE Inactive NORVASC 10 MG ORAL TABLET 1 tablet by mouth daily NORVASC 10 MG ORAL TABLET 578930 AMLODIPINE BESYLATE Inactive AZITHROMYCIN 250 MG ORAL TABLET 2 tablets PO today---then, 1 tablet PO daily x 4 more days (and 1 optional refill) AZITHROMYCIN 250 MG ORAL TABLET 439325 AZITHROMYCIN Inactive CHERATUSSIN AC 100-10 MG/5ML ORAL SOLUTION 7.5 mL PO q 4-6 hrs PRN cough 2014 CHERATUSSIN AC 100-10 MG/5ML ORAL SOLUTION 683727 GUAIFENESIN-CODEINE Inactive VIIBRYD 40 MG ORAL TABLET take 1 tab po qday for depression. 2014 VIIBRYD 40 MG ORAL TABLET VILAZODONE HCL Inactive HYDRALAZINE HCL 25 MG ORAL TABLET 1 tablet by mouth tid for hypertension 2013 HYDRALAZINE HCL 25 MG ORAL TABLET 764918 HYDRALAZINE HCL Inactive SPIRONOLACTONE 50 MG ORAL TABLET 1 tablet by mouth twice a day SPIRONOLACTONE 50 MG ORAL TABLET 470123 SPIRONOLACTONE Inactive FENOFIBRATE 145 MG ORAL TABLET Take one by mouth daily FENOFIBRATE 145 MG ORAL TABLET 811682 FENOFIBRATE Inactive PROTONIX 40 MG INTRAVENOUS SOLUTION RECONSTITUTED 1 po qday for acid reflux PROTONIX 40 MG INTRAVENOUS SOLUTION RECONSTITUTED 231897 PANTOPRAZOLE SODIUM Inactive CEFDINIR 300 MG ORAL CAPSULE Take 1 cap po bid x 10 days CEFDINIR 300 MG ORAL CAPSULE 827864 CEFDINIR Inactive PREDNISONE 20 MG ORAL TABLET 1 tablet twice daily for 2 days, then 1 tablet once daily for 2 days PREDNISONE 20 MG ORAL TABLET 801883 PREDNISONE Inactive NYSTATIN 428162 UNIT/ML MOUTH/THROAT SUSPENSION 5mL po QID x 10 days NYSTATIN 987836 UNIT/ML MOUTH/THROAT SUSPENSION 820694 NYSTATIN Inactive BETADINE 10 % EXTERNAL SOLUTION 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 07/29 BETADINE 10 % EXTERNAL SOLUTION 5766047 POVIDONE-IODINE Inactive TRILEPTAL 150 MG ORAL TABLET 1 TAB PO Q HS TRILEPTAL 150 MG ORAL TABLET 781515 OXCARBAZEPINE Inactive LAMISIL 125 MG ORAL PACKET 1 TAB PO DAILY LAMISIL 125 MG ORAL PACKET TERBINAFINE HCL Inactive HYDROCHLOROTHIAZIDE TABLET Take one by mouth daily HYDROCHLOROTHIAZIDE TABLET HYDROCHLOROTHIAZIDE TABS Inactive HYDROCODONE-ACETAMINOPHEN 5-325 MG ORAL TABLET 1 tab by mouth BID prn back pain HYDROCODONE-ACETAMINOPHEN 5-325 MG ORAL TABLET 021291 HYDROCODONE-ACETAMINOPHEN Inactive HYDRALAZINE HCL 50 MG ORAL TABLET TWO BY MOUTH THREE TIMES DAILY HYDRALAZINE HCL 50 MG ORAL TABLET 854252 HYDRALAZINE HCL Inactive LEVAQUIN 500 MG ORAL TABLET 1 tablet by mouth daily for 7 days LEVAQUIN 500 MG ORAL TABLET 011055 LEVOFLOXACIN Inactive SPIRONOLACTONE 25 MG ORAL TABLET 4 tablets by mouth daily SPIRONOLACTONE 25 MG ORAL TABLET 180569 SPIRONOLACTONE Inactive MECLIZINE HCL 25 MG ORAL TABLET one 4 times a day as needed for dizziness MECLIZINE HCL 25 MG ORAL TABLET 696068 MECLIZINE HCL Inactive CLONIDINE HCL 0.2 MG ORAL TABLET 1 TAB BY MOUTH EVERY 8 HOURS CLONIDINE HCL 0.2 MG ORAL TABLET 086042 CLONIDINE HCL Inactive CYCLOBENZAPRINE HCL 10 MG ORAL TABLET 1 tablet by mouth three times daily as needed for muscle spasm/pain for 10 days CYCLOBENZAPRINE HCL 10 MG ORAL TABLET 984663 CYCLOBENZAPRINE HCL Inactive VITAMIN D3 60157 UNIT ORAL CAPSULE 2 CAPS PO WEEKLY VITAMIN D3 62910 UNIT ORAL CAPSULE CHOLECALCIFEROL Inactive FIORICET 50-300-40 MG ORAL CAPSULE take 1 tab po qday prn migraines. FIORICET 50-300-40 MG ORAL CAPSULE 083475 BUTALBITAL-APAP- CAFFEINE Inactive FLONASE 50 MCG/ACT NASAL SUSPENSION 1 spray each nostril twice daily for allergies and runny nose FLONASE 50 MCG/ACT NASAL SUSPENSION 4711644 FLUTICASONE PROPIONATE Inactive LORATADINE 10 MG ORAL TABLET 1 tablet by mouth daily for congestion and allergies. LORATADINE 10 MG ORAL TABLET 601830 LORATADINE Inactive NITROSTAT 0.4 MG SUBLINGUAL TABLET SUBLINGUAL PRN NITROSTAT 0.4 MG SUBLINGUAL TABLET SUBLINGUAL 611640 NITROGLYCERIN Inactive GUAIFENESIN ER 600 MG ORAL TABLET EXTENDED RELEASE 12 HOUR 1 tab po q am 2016 GUAIFENESIN ER 600 MG ORAL TABLET EXTENDED RELEASE 12 HOUR GUAIFENESIN Inactive ZITHROMAX 250 MG ORAL TABLET 2 po today, then 1 po q days 2-5 ZITHROMAX 250 MG ORAL TABLET 614382 AZITHROMYCIN Inactive TERBINAFINE HCL 250 MG ORAL TABLET 1 tab po qday for foot infection TERBINAFINE HCL 250 MG ORAL TABLET 338183 TERBINAFINE HCL Inactive KEFLEX 500 MG ORAL CAPSULE 1 po TID x 10 days KEFLEX 500 MG ORAL CAPSULE 636812 CEPHALEXIN Inactive BACTRIM DS 800-160 MG ORAL TABLET 1 tab by mouth twice daily 2015 BACTRIM DS 800-160 MG ORAL TABLET 872849 TRIMETHOPRIM- SULFAMETHOXAZOLE Inactive PREDNISONE 20 MG ORAL TABLET take 3 tabs daily for 3 days, 2 tabs daily for 3 days, 1 tab daily for 3 days, 1/2 tab daily for 4 days PREDNISONE 20 MG ORAL TABLET 978860 PREDNISONE Inactive Advance Directives Directive Description Start Date DISCUSSED WITH PATIENT -- NO DECISION MADE Vital Signs Date Name Value Unit Range Description blood pressure, diastolic 85 mm[Hg] BP del [...] AUTO - Chemistry sodium, serum 142 mmol/L 946-503 2141/07/17 carbon dioxide, venous blood 28.2 mmol/L 21.0-32.0 [...] % 11.0-15.0 platelet count 185 THOUSAND/UL 10*3/mm3 867-411 6987/04/14 mean platelet volume 10.9 fL 7.5-12.5 Lab Report: LIPID PANEL, TSH/899, T4, FREE/866 - Chemistry cholesterol, serum 220 mg/dL 270-247 6600/04/14 HDL cholesterol, serum 30 mg/dL > OR=40 [...] 1.80 ng/mL 0.00-4.00 Lab Report: VITAMIN D, 25-HYDROXY/09771 - Chemistry vitamin D 25-hydroxy, serum 25 ng/mL 30-100 Office Visit: Confusion, dizziness after fall - Basic LDL target level 130 mg/dL Office Visit: Confusion, dizziness after fall - Chemistry HDL cholesterol, serum, target level 40 mg/dL triglyceride, target level 150 mg/dL cholesterol, target level 200 mg/dL Encounters Code Encounter Date Provider Facility CPT-07885 Level 3 Est. Patient 15:40:49 CDT Robbie Busby MD [facility] CPT-86380 Level 4 Est. Patient 15:18:19 CDT Robbie Busby MD [facility] CPT-02209 Level 3 Est. Patient 09:00:37 CDT Rober Rodríguez [facility] CPT-54498 Level 3 Est. Patient 16:07:10 CDT Robbie Busby MD [facility] CPT-29426 Level 4 Est. Patient 11:56:16 CDT Erin Garsia [facility] CPT-42715 Level 3 Est. Patient 17:48:02 CDT Robbie Busby MD [facility] CPT-16202 Level 4 Est. Patient 12:00:49 [employer] Rober Rodríguez [facility] CPT-00786 Level 3 Est. Patient 09:16:37 CDT Robbie Busby MD [facility] CPT-70877 Level 3 Est. Patient 19:38:43 CDT Robbie Busby MD [facility] CPT-41589 Level 3 Est. Patient 11:53:38 CDT Robbie Busby MD [facility] CPT-11147 Level 4 Est. Patient 12:52:22 CDT Rober Rodríguez [facility] CPT-38605 Level 4 Est. Patient 22:55:17 CDT Robbie Busby MD [facility] CPT-67430 Level 3 Est. Patient 12:38:24 CDT Desmond Diaz DO [facility] CPT-48527 Level 4 Est. Patient 11:25:03 [employer] Robbie Busby MD [facility] CPT-55961 Level 4 Est. Patient 14:50:10 CDT Robbie Busby MD [facility] CPT-71173 Level 4 Est. Patient 23:30:43 CDT Robbie Busby MD [facility] CPT-24392 Level 4 Est. Patient 10:30:43 CDT Robbie Busby MD [facility] CPT-68701 Level 3 Est. Patient 17:08:12 CDT Alex ALVAREZ [facility] CPT-83092 Level 4 Est. Patient 17:51:38 CDT Robbie Busby MD [facility] CPT-63731 Level 4 Est. Patient 14:00:21 CDT Robbie Busby MD [facility] CPT-30418 Level 4 Est. Patient 12:46:48 CDT Robbie Busby MD [facility] CPT-23806 Level 4 Est. Patient 13:34:33 CDT Robbie Busby MD [facility] CPT-47209 Level 4 Est. Patient 16:58:28 CDT Robbie Busby MD [facility] CPT-50351 Level 3 Est. Patient 19:36:53 CDT Alex Shaw [facility] CPT-52815 Level 3 Est. Patient 12:58:15 CDT Robbie Busby MD [facility] Procedures Code Procedure Name Date Entry Date Standard Description CPT-J1071 Depo Testosterone 200mg 09:38:36 [employer] CPT-50987 Abx/Therapy Injection 09:38:36 [employer] CPT-J1071 Depo Testosterone 200mg 10:22:56 [employer] CPT-91085 Abx/Therapy Injection 10:22:56 [employer] CPT-J1071 Depo Testosterone 200mg 15:40:23 CDT CPT-11488 Abx/Therapy Injection 15:40:23 CDT CPT-J1071 Depo Testosterone 200mg 14:20:43 CDT CPT-03619 Abx/Therapy Injection 14:20:43 CDT CPT-J1071 Depo Testosterone 200mg 14:17:22 CDT CPT-68757 Abx/Therapy Injection 14:17:22 CDT CPT-J1071 Depo Testosterone 200mg 09:03:53 CDT CPT-49287 Abx/Therapy Injection 09:03:53 CDT CPT-G0439 [facility] Annual Wellness Exam 16:47:44 CDT CPT-J1071 Depo Testosterone 200mg 09:06:28 CDT CPT-67004 Abx/Therapy Injection 09:06:28 CDT CPT-J1071 Depo Testosterone 200mg 08:30:01 CDT CPT-96479 Abx/Therapy Injection 08:30:01 CDT CPT-J1071 Depo Testosterone 200mg 08:24:00 CDT CPT-05908 Abx/Therapy Injection 08:24:00 CDT CPT-07517 Venipuncture Draw Fee 14:39:06 CDT CPT-89529 Ribs unilateral 2V - XRAY USE ONLY 12:10:11 CDT CPT-87448 First Vx - Ix admin for Medicare patients 16:32:53 CDT CPT-39822 Boostrix Intramuscular Suspension 5-2.5-18.5 16:32:53 CDT CPT-03692 TB Skin Test 11:42:28 CDT CPT-88383 Tdap 7yrs or > 11:42:28 CDT CPT-J0696 Rocephin 1000 mg (Ceftriaxone) 17:43:43 [employer] CPT-J1040 Depo Medrol 80 mg (Methyl Prednisolone Acetate) 17:43: 43 [employer] CPT-J1100 Decadron 8mg (Dexamethasone) 17:43:42 [employer] CPT-85409 Abx/Therapy Injection 17:43:42 [employer] CPT-12121 Abx/Therapy Injection 17:43:42 [employer] CPT-J1040 Depo Medrol 80 mg (Methyl Prednisolone Acetate) 09:43: 34 [employer] CPT-J1100 Decadron 8mg (Dexamethasone) 09:43:34 [employer] CPT-J0696 Rocephin 1gm Inj Solr 09:43:34 [employer] CPT-71875 Wound Culture - LAB USE ONLY 14:00:21 CDT CPT-I/D I/D Abscess 09:16:37 CDT CPT-37561 Venipuncture Draw Fee 15:20:23 CDT CPT-05313 Microalbumin - LAB USE ONLY 16:02:19 CDT CPT-02414 CBC - LAB USE ONLY 16:02:19 CDT CPT-75249 Venipuncture Draw Fee 16:02:19 CDT CPT-G0438 Initial Annual Wellness Exam 08:10:28 CDT CPT-48903 Venipuncture Draw Fee 13:07:17 CDT CPT-G0008 Administration of Influenza Virus Vaccine 16:09:59 CDT CPT-51873 Fluzone Quadrivalent Intramuscular Suspension 0.5 ML 16: 09:59 CDT CPT-59467 Spec Collection and Handling Fee 15:05:50 CDT
--- OUTSIDE RECORDS SUMMARY | 2018-04-18 10:32 | XMS REPORT | Clinical Summary ---
Author Author Admin, Nicolas Organization 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 Desmond Diaz DO Other malignant secondary hypertension Tachycardia 785.0 Active Rober Rodríguez BEAD WIRE TAPER Tachycardia, unspecified Insect bite, infected 919.5 Resolved Desmond Diaz DO Insect bite, nonvenomous, of other, multiple, and unspecified sites, infected Abscess, skin 682.9 Resolved Desmond Diaz DO Cellulitis and abscess of unspecified sites URI 465.9 Resolved Desmond Diaz DO Acute upper respiratory infections of unspecified site Hypertension 401.9 Active Rober Rodríguez BEAD WIRE TAPER Unspecified essential hypertension Sinusitis - acute 461.9 Resolved Desmond Dante Joe DO Acute sinusitis, unspecified Acute confusion [...] Rib pain, right sided 786.50 Resolved Desmond Howell Joe DO Unspecified chest pain Vitamin D deficiency 268.9 Active Vanessa August Unspecified vitamin D deficiency Myalgias 729.1 Resolved Desmond Dante Joe DO Myalgia and myositis, unspecified URI 465.9 Resolved Desmond Dante Joe DO Acute upper respiratory infections of unspecified site Hypogonadism, low testosterone 257.2 Active Erin Mai BEAD WIRE TAPER Other testicular hypofunction Low back pain, chronic 724.2 Active Robbie Busby MD Lumbago Bronchitis-Acute 466.0 Inactive Desmond Howell Joe DO Acute bronchitis Polydipsia 783.5 Active Desmond Howell Joe DO Polydipsia Type 2 diabetes mellitus with hyperglycemia Active Rbobie Busby MD Sinusitis ICD-461.9 Inactive 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 LPN 2017 Low back pain, acute ICD-724.2 Inactive 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 LPN Low back pain, chronic ICD-724.2 Inactive 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 [facility] Bronchitis, acute ICD-466.0 Inactive 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 [facility] Onychomycosis, toenails ICD-110.1 Inactive 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 [facility] Dizziness ICD-780.4 Inactive 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 [facility] 2017 Folliculitis ICD-704.8 Inactive 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 [facility] Pharyngitis-Acute ICD-462 Inactive 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 [facility] Fatigue ICD-780.79 Inactive 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 [facility] 09/20 Hypertension, secondary, malignant ICD-405.09 Inactive 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 [facility] Insect bite, infected ICD-919.5 Inactive 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 [facility] Abscess, skin ICD-682.9 Inactive 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 [facility] URI ICD-465.9 Inactive 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 [facility] Sinusitis - acute ICD-461.9 Inactive 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 [facility] Acute confusion ICD-293.0 Inactive 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 [facility] Headache ICD-784.0 Inactive 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 [facility] 09/20 Back pain ICD-724.5 Inactive 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 [facility] 2017 Rib pain, right sided ICD-786.50 Inactive 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 [facility] Myalgias ICD-729.1 Inactive 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 LPN 09/20 URI ICD-465.9 Inactive 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 LPN Bronchitis-Acute ICD-466.0 Inactive Desmond Diaz DO Medication List Medication Instructions Start Date Stop Date Generic Name NDC Status Provider Patient Instruction CYCLOBENZAPRINE HCL 10 MG ORAL TABLET 1 tablet by mouth three times daily as needed for muscle spasm/pain CYCLOBENZAPRINE HCL 81064536743 Active Robbie Busby MD Active METFORMIN HCL 500 MG ORAL TABLET 1 tablet by mouth daily for diabetes type 2 METFORMIN HCL 33422389944 Active Robbie Busby MD Active SINGULAIR 10 MG ORAL TABLET 1 po qday for allergies. MONTELUKAST SODIUM 26825016121 No Longer Active Robbie Busby MD Active PREDNISONE 20 MG ORAL TABLET two tabs by mouth today, then one tab by mouth days two and three PREDNISONE 50341683797 No Longer Active Robbie Busby MD Active TOPIRAMATE 50 MG ORAL TABLET 1 po BID for migraines TOPIRAMATE 12964188377 Active JONATHAN Moncada Active AZITHROMYCIN 250 MG ORAL TABLET 2 po qd x 1 day, then 1 po qd x 4 days 09/20 AZITHROMYCIN 76319798975 No Longer Active Desmond Diaz DO Active TOPIRAMATE 50 MG ORAL TABLET take 1 tab po BID for migraines. TOPIRAMATE 59361780494 No Longer Active Desmond Diaz DO Active CYCLOBENZAPRINE HCL 10 MG ORAL TABLET 1 po TID PRN muscle spasm/pain for 10 days CYCLOBENZAPRINE HCL 27958474250 No Longer Active Desmond Diaz DO Active GUAIFENESIN ER 600 MG ORAL TABLET EXTENDED RELEASE 12 HOUR 1 tab po q am 2016 GUAIFENESIN 05120968349 No Longer Active Robbie Busby MD Active DIVALPROEX SODIUM ER 500 MG ORAL TABLET EXTENDED RELEASE 24 HOUR Once daily DIVALPROEX SODIUM 40062845721 Active Robbie Busby MD Active DEPO-TESTOSTERONE 200 MG/ML INTRAMUSCULAR SOLUTION 1 IM Injections every 2 weeks for low testosterone TESTOSTERONE CYPIONATE 93688091608 Active Zulema Blank LPN Active FLUTICASONE PROPIONATE 50 MCG/ACT NASAL SUSPENSION 2 sprays per nostril bid for 1 week, then 1 spray bid FLUTICASONE PROPIONATE 67075061917 Active Rober Rodríguez APRN Active HYDRALAZINE HCL 25 MG ORAL TABLET Take 1 tab BID. HYDRALAZINE HCL 50174355701 Active Rober Rodríguez APRN Active VITAMIN D3 53163 UNIT ORAL TABLET 2 po weekly CHOLECALCIFEROL 96042797738 Active Robbie Busby MD Active OXYCODONE HCL ER 10 MG ORAL TABLET ER 12 HOUR ABUSE-DETERRENT 1 tab po 3 times qd. OXYCODONE HCL 26372310520 Active Robbie Busby MD Active NITROSTAT 0.4 MG SUBLINGUAL TABLET SUBLINGUAL PRN NITROGLYCERIN 25819162792 No Longer Active Robbie Busby MD Active LORATADINE 10 MG ORAL TABLET 1 tablet by mouth daily for congestion and allergies. LORATADINE 59765573173 No Longer Active Robbie Busby MD Active FLONASE 50 MCG/ACT NASAL SUSPENSION 1 spray each nostril twice daily for allergies and runny nose FLUTICASONE PROPIONATE 34068593072 No Longer Active Robbie Busby MD Active FIORICET 50-300-40 MG ORAL CAPSULE take 1 tab po qday prn migraines. [id number] 08875296019 No Longer Active Robbie Busby MD Active VITAMIN D3 93372 UNIT ORAL CAPSULE 2 CAPS PO WEEKLY CHOLECALCIFEROL 41435772553 No Longer Active Robbie Busby MD Active CYCLOBENZAPRINE HCL 10 MG ORAL TABLET 1 tablet by mouth three times daily as needed for muscle spasm/pain for 10 days CYCLOBENZAPRINE HCL 25566646140 No Longer Active Rbobie Busby MD Active PREDNISONE 20 MG ORAL TABLET take 3 tabs daily for 3 days, 2 tabs daily for 3 days, 1 tab daily for 3 days, 1/2 tab daily for 4 days PREDNISONE 32088434081 No Longer Active Erin Arezane GONZALEZN Active CLONIDINE HCL 0.2 MG ORAL TABLET 1 TAB BY MOUTH EVERY 8 HOURS CLONIDINE HCL 49438641774 No Longer Active Erin Arell [employer]AD WIRE TAPER Active MECLIZINE HCL 25 MG ORAL TABLET one 4 times a day as needed for dizziness MECLIZINE HCL 70497354141 No Longer Active Erin Arell BEAD WIRE TAPER Active SPIRONOLACTONE 25 MG ORAL TABLET 4 tablets by mouth daily SPIRONOLACTONE 70852459573 No Longer Active Erin Arell BEAD WIRE TAPER Active LEVAQUIN 500 MG ORAL TABLET 1 tablet by mouth daily for 7 days LEVOFLOXACIN 04998485367 No Longer Active Erin Arell BEAD WIRE TAPER Active BACTRIM DS 800-160 MG ORAL TABLET 1 tab by mouth twice daily 2015 TRIMETHOPRIM-SULFAMETHOXAZOLE 64469870637 No Longer Active Robbie Busby MD Active HYDRALAZINE HCL 50 MG ORAL TABLET TWO BY MOUTH THREE TIMES DAILY HYDRALAZINE HCL 05390736271 No Longer Active Andrellina Zulemal BEAD WIRE TAPER Active HYDROCODONE-ACETAMINOPHEN 5-325 MG ORAL TABLET 1 tab by mouth BID prn back pain HYDROCODONE-ACETAMINOPHEN 78182471786 No Longer Active 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 BEAD WIRE TAPER Active HYDROCHLOROTHIAZIDE TABLET Take one by mouth daily HYDROCHLOROTHIAZIDE TABS 25212897885 No Longer Active 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 BEAD WIRE TAPER Active LAMISIL 125 MG ORAL PACKET 1 TAB PO DAILY TERBINAFINE HCL 86270146927 No Longer Active 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 BEAD WIRE TAPER Active TRILEPTAL 150 MG ORAL TABLET 1 TAB PO Q HS OXCARBAZEPINE 63468956652 No Longer Active 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 BEAD WIRE TAPER Active BETADINE 10 % EXTERNAL SOLUTION 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 07/29 POVIDONE-IODINE 02110893143 No Longer Active oRber Rodríguez APRN Active NYSTATIN 044217 UNIT/ML MOUTH/THROAT SUSPENSION 5mL po QID x 10 days NYSTATIN 55708574916 No Longer Active Erin Mai APRN Active PREDNISONE 20 MG ORAL TABLET 1 tablet twice daily for 2 days, then 1 tablet once daily for 2 days PREDNISONE 88323271666 No Longer Active Robbie Busby MD Active CEFDINIR 300 MG ORAL CAPSULE Take 1 cap po bid x 10 days CEFDINIR 83048786637 No Longer Active Robbie Busby MD Active AMLODIPINE BESYLATE 10 MG ORAL TABLET 1 tablet by mouth daily AMLODIPINE BESYLATE 55626617838 Active Robbie Busby MD Active CARVEDILOL 25 MG ORAL TABLET 1 & 1/2 TAB po BID CARVEDILOL 66027838610 Active Robbie Busby MD Active NEXIUM 40 MG ORAL CAPSULE DELAYED RELEASE 1 cap by mouth daily ESOMEPRAZOLE MAGNESIUM 05667097117 Active Robbie Busby MD Active PROTONIX 40 MG INTRAVENOUS SOLUTION RECONSTITUTED 1 po qday for acid reflux PANTOPRAZOLE SODIUM 23403875270 No Longer Active Gali Raida Active KEFLEX 500 MG ORAL CAPSULE 1 po TID x 10 days CEPHALEXIN 22716695590 No Longer Active Robbie Busby MD Active TEMAZEPAM 15 MG ORAL CAPSULE 1 TAB PO Q HS TEMAZEPAM 40999827972 Active Robbie Busby MD Active ALPRAZOLAM 2 MG ORAL TABLET 1 TAB PO BID ALPRAZOLAM 21352723114 Active Robbie Busby MD Active FENOFIBRATE 145 MG ORAL TABLET Take one by mouth daily FENOFIBRATE 92227598904 No Longer Active Robbie Busby MD Active SPIRONOLACTONE 50 MG ORAL TABLET 1 tablet by mouth twice a day SPIRONOLACTONE 55745665974 No Longer Active Robbie Busby MD Active HYDRALAZINE HCL 25 MG ORAL TABLET 1 tablet by mouth tid for hypertension 2013 HYDRALAZINE HCL 05802932784 No Longer Active Robbie Busby MD Active VIIBRYD 40 MG ORAL TABLET take 1 tab po qday for depression. 2014 VILAZODONE HCL 86060612719 No Longer Active Robbie Busby MD Active TERBINAFINE HCL 250 MG ORAL TABLET 1 tab po qday for foot infection TERBINAFINE HCL 00032249434 No Longer Active Robbie Busby MD Active GABAPENTIN 300 MG ORAL CAPSULE 1 po q hs for nerve pain GABAPENTIN 79839844525 Active Robbie Busby MD Active CHERATUSSIN AC 100-10 MG/5ML ORAL SOLUTION 7.5 mL PO q 4-6 hrs PRN cough 2014 GUAIFENESIN-CODEINE 53637096832 No Longer Active Robbie Busby MD Active AZITHROMYCIN 250 MG ORAL TABLET 2 tablets PO today---then, 1 tablet PO daily x 4 more days (and 1 optional refill) AZITHROMYCIN 79001627707 No Longer Active Robbie Busby MD Active NORVASC 10 MG ORAL TABLET 1 tablet by mouth daily AMLODIPINE BESYLATE 72182036935 No Longer Active Alex ALVAREZ Active IMDUR 60 MG ORAL TABLET EXTENDED RELEASE 24 HOUR take 1 tab po qday for blood pressure ISOSORBIDE MONONITRATE 41209117425 Active Robbie Busby MD Active ISOSORBIDE DINITRATE 30 MG ORAL TABLET Take one by mouth daily ISOSORBIDE DINITRATE 79083267378 No Longer Active Robbie Busby MD Active VIIBRYD 40 MG ORAL TABLET 1 TA B PO DAILY VILAZODONE HCL 28844469512 Active Robbie Busby MD Active ZITHROMAX 250 MG ORAL TABLET 2 po today, then 1 po q days 2-5 AZITHROMYCIN 73487934391 No Longer Active Robbie Busby MD Active [id number] 0.3 MG/24HR TRANSDERMAL PATCH WEEKLY apply 2 patches q week for HTN CLONIDINE HCL 11268421642 Active Robbie Busby MD Active DOXAZOSIN MESYLATE 4 MG ORAL TABLET Take one by mouth daily DOXAZOSIN MESYLATE 06874092153 Active Robbie Busby MD Active TOPROL XL 200 MG ORAL TABLET EXTENDED RELEASE 24 HOUR Take one by mouth daily METOPROLOL SUCCINATE 39119708254 Active Robbie Busby MD Active VENLAFAXINE HCL ER 150 MG ORAL TABLET EXTENDED RELEASE 24 HOUR Take one by mouth daily VENLAFAXINE HCL 26349588872 Active Robbie Busby MD Active LIPITOR 40 MG ORAL TABLET Take one by mouth daily ATORVASTATIN CALCIUM 87316156645 Active Robbie Busby MD Active ISOSORBIDE DINITRATE 30 MG ORAL TABLET Take one by mouth daily ISOSORBIDE DINITRATE 30 MG ORAL TABLET 565453 ISOSORBIDE DINITRATE Inactive NORVASC 10 MG ORAL TABLET 1 tablet by mouth daily NORVASC 10 MG ORAL TABLET 439392 AMLODIPINE BESYLATE Inactive AZITHROMYCIN 250 MG ORAL TABLET 2 tablets PO today---then, 1 tablet PO daily x 4 more days (and 1 optional refill) AZITHROMYCIN 250 MG ORAL TABLET 003679 AZITHROMYCIN Inactive CHERATUSSIN AC 100-10 MG/5ML ORAL SOLUTION 7.5 mL PO q 4-6 hrs PRN cough 2014 CHERATUSSIN AC 100-10 MG/5ML ORAL SOLUTION 871203 GUAIFENESIN-CODEINE Inactive VIIBRYD 40 MG ORAL TABLET take 1 tab po qday for depression. 2014 VIIBRYD 40 MG ORAL TABLET VILAZODONE HCL Inactive HYDRALAZINE HCL 25 MG ORAL TABLET 1 tablet by mouth tid for hypertension 2013 HYDRALAZINE HCL 25 MG ORAL TABLET 904823 HYDRALAZINE HCL Inactive SPIRONOLACTONE 50 MG ORAL TABLET 1 tablet by mouth twice a day SPIRONOLACTONE 50 MG ORAL TABLET 519106 SPIRONOLACTONE Inactive FENOFIBRATE 145 MG ORAL TABLET Take one by mouth daily FENOFIBRATE 145 MG ORAL TABLET 090850 FENOFIBRATE Inactive PROTONIX 40 MG INTRAVENOUS SOLUTION RECONSTITUTED 1 po qday for acid reflux PROTONIX 40 MG INTRAVENOUS SOLUTION RECONSTITUTED 755568 PANTOPRAZOLE SODIUM Inactive CEFDINIR 300 MG ORAL CAPSULE Take 1 cap po bid x 10 days CEFDINIR 300 MG ORAL CAPSULE 530427 CEFDINIR Inactive PREDNISONE 20 MG ORAL TABLET 1 tablet twice daily for 2 days, then 1 tablet once daily for 2 days PREDNISONE 20 MG ORAL TABLET 598827 PREDNISONE Inactive NYSTATIN 443319 UNIT/ML MOUTH/THROAT SUSPENSION 5mL po QID x 10 days NYSTATIN 766082 UNIT/ML MOUTH/THROAT SUSPENSION 579124 NYSTATIN Inactive BETADINE 10 % EXTERNAL SOLUTION 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 07/29 BETADINE 10 % EXTERNAL SOLUTION 7650624 POVIDONE-IODINE Inactive TRILEPTAL 150 MG ORAL TABLET 1 TAB PO Q HS TRILEPTAL 150 MG ORAL TABLET 029328 OXCARBAZEPINE Inactive LAMISIL 125 MG ORAL PACKET 1 TAB PO DAILY LAMISIL 125 MG ORAL PACKET TERBINAFINE HCL Inactive HYDROCHLOROTHIAZIDE TABLET Take one by mouth daily HYDROCHLOROTHIAZIDE TABLET HYDROCHLOROTHIAZIDE TABS Inactive HYDROCODONE-ACETAMINOPHEN 5-325 MG ORAL TABLET 1 tab by mouth BID prn back pain HYDROCODONE-ACETAMINOPHEN 5-325 MG ORAL TABLET 310352 HYDROCODONE-ACETAMINOPHEN Inactive HYDRALAZINE HCL 50 MG ORAL TABLET TWO BY MOUTH THREE TIMES DAILY HYDRALAZINE HCL 50 MG ORAL TABLET 924572 HYDRALAZINE HCL Inactive LEVAQUIN 500 MG ORAL TABLET 1 tablet by mouth daily for 7 days LEVAQUIN 500 MG ORAL TABLET 034027 LEVOFLOXACIN Inactive SPIRONOLACTONE 25 MG ORAL TABLET 4 tablets by mouth daily SPIRONOLACTONE 25 MG ORAL TABLET 002788 SPIRONOLACTONE Inactive MECLIZINE HCL 25 MG ORAL TABLET one 4 times a day as needed for dizziness MECLIZINE HCL 25 MG ORAL TABLET 439445 MECLIZINE HCL Inactive CLONIDINE HCL 0.2 MG ORAL TABLET 1 TAB BY MOUTH EVERY 8 HOURS CLONIDINE HCL 0.2 MG ORAL TABLET 702666 CLONIDINE HCL Inactive CYCLOBENZAPRINE HCL 10 MG ORAL TABLET 1 tablet by mouth three times daily as needed for muscle spasm/pain for 10 days CYCLOBENZAPRINE HCL 10 MG ORAL TABLET 708685 CYCLOBENZAPRINE HCL Inactive VITAMIN D3 64981 UNIT ORAL CAPSULE 2 CAPS PO WEEKLY VITAMIN D3 15352 UNIT ORAL CAPSULE CHOLECALCIFEROL Inactive FIORICET 50-300-40 MG ORAL CAPSULE take 1 tab po qday prn migraines. FIORICET 50-300-40 MG ORAL CAPSULE 788117 BUTALBITAL-APAP- CAFFEINE Inactive FLONASE 50 MCG/ACT NASAL SUSPENSION 1 spray each nostril twice daily for allergies and runny nose FLONASE 50 MCG/ACT NASAL SUSPENSION 7023046 FLUTICASONE PROPIONATE Inactive LORATADINE 10 MG ORAL TABLET 1 tablet by mouth daily for congestion and allergies. LORATADINE 10 MG ORAL TABLET 069600 LORATADINE Inactive NITROSTAT 0.4 MG SUBLINGUAL TABLET SUBLINGUAL PRN NITROSTAT 0.4 MG SUBLINGUAL TABLET SUBLINGUAL 346219 NITROGLYCERIN Inactive GUAIFENESIN ER 600 MG ORAL TABLET EXTENDED RELEASE 12 HOUR 1 tab po q am 2016 GUAIFENESIN ER 600 MG ORAL TABLET EXTENDED RELEASE 12 HOUR GUAIFENESIN Inactive CYCLOBENZAPRINE HCL 10 MG ORAL TABLET 1 po TID PRN muscle spasm/pain for 10 days CYCLOBENZAPRINE HCL 10 MG ORAL TABLET 333203 CYCLOBENZAPRINE HCL Inactive TOPIRAMATE 50 MG ORAL TABLET take 1 tab po BID for migraines. TOPIRAMATE 50 MG ORAL TABLET 648810 TOPIRAMATE Inactive PREDNISONE 20 MG ORAL TABLET two tabs by mouth today, then one tab by mouth days two and three PREDNISONE 20 MG ORAL TABLET 575999 PREDNISONE Inactive ZITHROMAX 250 MG ORAL TABLET 2 po today, then 1 po q days 2-5 ZITHROMAX 250 MG ORAL TABLET 896175 AZITHROMYCIN Inactive TERBINAFINE HCL 250 MG ORAL TABLET 1 tab po qday for foot infection TERBINAFINE HCL 250 MG ORAL TABLET 866278 TERBINAFINE HCL Inactive KEFLEX 500 MG ORAL CAPSULE 1 po TID x 10 days KEFLEX 500 MG ORAL CAPSULE 225583 CEPHALEXIN Inactive BACTRIM DS 800-160 MG ORAL TABLET 1 tab by mouth twice daily 2015 BACTRIM DS 800-160 MG ORAL TABLET 806624 TRIMETHOPRIM- SULFAMETHOXAZOLE Inactive PREDNISONE 20 MG ORAL TABLET take 3 tabs daily for 3 days, 2 tabs daily for 3 days, 1 tab daily for 3 days, 1/2 tab daily for 4 days PREDNISONE 20 MG ORAL TABLET 663727 PREDNISONE Inactive AZITHROMYCIN 250 MG ORAL TABLET 2 po qd x 1 day, then 1 po qd x 4 days 09/20 AZITHROMYCIN 250 MG ORAL TABLET 905016 AZITHROMYCIN Inactive SINGULAIR 10 MG ORAL TABLET 1 po qday for allergies. SINGULAIR 10 MG ORAL TABLET 085152 MONTELUKAST SODIUM Inactive Advance Directives Directive Description [...] AUTO - Chemistry sodium, serum 142 mmol/L 539-705 8298/07/17 carbon dioxide, venous blood 28.2 mmol/L 21.0-32.0 [...] % 11.0-15.0 platelet count 185 THOUSAND/UL 10*3/mm3 553-316 7472/04/14 mean platelet volume 10.9 fL 7.5-12.5 Lab Report: HGBA1C, Basic Metabolic Panel - Chemistry hemoglobin A1C, blood, as % of total hemoglobin 6.9 % 4.3-6.0 sodium, serum 139 mmol/L 461-176 2336/01/04 potassium, serum 3.9 mmol/L 3.5-5.2 chloride, serum 103 mmol/L 98-107 carbon dioxide, venous blood 26.9 mmol/L 21.0-32.0 blood glucose 106 mg/dL 65-110 calcium, serum 9.0 mg/dL 8.5-10.1 urea nitrogen, blood 20 mg/dL 7-18 creatinine, serum 1.46 mg/dL 0.60-1.30 Lab Report: LIPID PANEL, TSH/899, T4, FREE/866 - Chemistry cholesterol, serum 220 mg/dL 795-788 3202/04/14 HDL cholesterol, serum 30 mg/dL > OR=40 [...] 1.80 ng/mL 0.00-4.00 Lab Report: VITAMIN D, 25-HYDROXY/92898 - Chemistry vitamin D 25-hydroxy, serum 25 ng/mL 30-100 Office Visit: Confusion, dizziness after fall - Basic LDL target level 130 mg/dL Office Visit: Confusion, dizziness after fall - Chemistry HDL cholesterol, serum, target level 40 mg/dL triglyceride, target level 150 mg/dL cholesterol, target level 200 mg/dL Encounters Code Encounter Date Provider Facility CPT-20195 Level 4 Est. Patient 13:07:39 BROADCAST OPERATIONS ENGINEER Robbie Busby MD [facility] CPT-45601 Level 4 Est. Patient 15:23:44 BROADCAST OPERATIONS ENGINEER Desmond Diaz [facility] CPT-36662 Level 3 Est. Patient 15:40:49 CDT Robbie Busby MD [facility] CPT-64899 Level 4 Est. Patient 15:18:19 CDT Robbie Busby MD [facility] CPT-19430 Level 3 Est. Patient 09:00:37 CDT Rober Rodríguez [facility] CPT-50352 Level 3 Est. Patient 16:07:10 CDT Robbie Busby MD [facility] CPT-20367 Level 4 Est. Patient 11:56:16 CDT Erin Mai [facility] CPT-29661 Level 3 Est. Patient 17:48:02 CDT Robbie Busby MD [facility] CPT-36381 Level 4 Est. Patient 12:00:49 BROADCAST OPERATIONS ENGINEER Rober Rodríguez [facility] CPT-56284 Level 3 Est. Patient 09:16:37 CDT Robbie Busby MD [facility] CPT-78241 Level 3 Est. Patient 19:38:43 CDT Robbie Busby MD [facility] CPT-28600 Level 3 Est. Patient 11:53:38 CDT Robbie Busby MD [facility] CPT-93370 Level 4 Est. Patient 12:52:22 CDT Rober Rodríguez [facility] CPT-11386 Level 4 Est. Patient 22:55:17 CDT Robbie Busby MD [facility] CPT-53808 Level 3 Est. Patient 12:38:24 CDT Desmond Diaz [facility] CPT-08771 Level 4 Est. Patient 11:25:03 BROADCAST OPERATIONS ENGINEER Robbie Busby MD [facility] CPT-43054 Level 4 Est. Patient 14:50:10 CDT Robbie Busby MD [facility] CPT-07003 Level 4 Est. Patient 23:30:43 CDT Robbie Busby MD [facility] CPT-02541 Level 4 Est. Patient 10:30:43 CDT Robbie Busby MD [facility] CPT-55694 Level 3 Est. Patient 17:08:12 CDT Alex ALVAREZ [facility] CPT-20965 Level 4 Est. Patient 17:51:38 CDT Robbie Busby MD [facility] CPT-24339 Level 4 Est. Patient 14:00:21 CDT Robbie Busby MD [facility] CPT-90743 Level 4 Est. Patient 12:46:48 CDT Robbie Busby MD [facility] CPT-91400 Level 4 Est. Patient 13:34:33 CDT Robbie Busby MD [facility] CPT-75705 Level 4 Est. Patient 16:58:28 CDT Robbie Busby MD [facility] CPT-98604 Level 3 Est. Patient 19:36:53 CDT Alex Shaw [facility] CPT-67412 Level 3 Est. Patient 12:58:15 CDT Robbie Busby MD [facility] Procedures Code Procedure Name Date Entry Date Standard Description CPT-J1071 Depo Testosterone 200mg 16:10:29 BROADCAST OPERATIONS ENGINEER CPT-54785 Abx/Therapy Injection 16:10:29 BROADCAST OPERATIONS ENGINEER CPT-J1071 Depo Testosterone 200mg 16:13:47 BROADCAST OPERATIONS ENGINEER CPT-40614 Abx/Therapy Injection 16:13:46 BROADCAST OPERATIONS ENGINEER CPT-J1071 Depo Testosterone 200mg 15:33:58 BROADCAST OPERATIONS ENGINEER CPT-56990 Abx/Therapy Injection 15:33:58 BROADCAST OPERATIONS ENGINEER CPT-J1071 Depo Testosterone 200mg 09:38:36 BROADCAST OPERATIONS ENGINEER CPT-62797 Abx/Therapy Injection 09:38:36 BROADCAST OPERATIONS ENGINEER CPT-J1071 Depo Testosterone 200mg 10:22:56 BROADCAST OPERATIONS ENGINEER CPT-68575 Abx/Therapy Injection 10:22:56 BROADCAST OPERATIONS ENGINEER CPT-J1071 Depo Testosterone 200mg 15:40:23 CDT CPT-60716 Abx/Therapy Injection 15:40:23 CDT CPT-J1071 Depo Testosterone 200mg 14:20:43 CDT CPT-07418 Abx/Therapy Injection 14:20:43 CDT CPT-J1071 Depo Testosterone 200mg 14:17:22 CDT CPT-85610 Abx/Therapy Injection 14:17:22 CDT CPT-J1071 Depo Testosterone 200mg 09:03:53 CDT CPT-06306 Abx/Therapy Injection 09:03:53 CDT CPT-G0439 [facility] Annual Wellness Exam 16:47:44 CDT CPT-J1071 Depo Testosterone 200mg 09:06:28 CDT CPT-40640 Abx/Therapy Injection 09:06:28 CDT CPT-J1071 Depo Testosterone 200mg 08:30:01 CDT CPT-57345 Abx/Therapy Injection 08:30:01 CDT CPT-J1071 Depo Testosterone 200mg 08:24:00 CDT CPT-69807 Abx/Therapy Injection 08:24:00 CDT CPT-66226 Venipuncture Draw Fee 14:39:06 CDT CPT-04638 Ribs unilateral 2V - XRAY USE ONLY 12:10:11 CDT CPT-32270 First Vx - Ix admin for Medicare patients 16:32:53 CDT CPT-92463 Boostrix Intramuscular Suspension 5-2.5-18.5 16:32:53 CDT CPT-04996 TB Skin Test 11:42:28 CDT CPT-20996 Tdap 7yrs or > 11:42:28 CDT CPT-J0696 Rocephin 1000 mg (Ceftriaxone) 17:43:43 BROADCAST OPERATIONS ENGINEER CPT-J1040 Depo Medrol 80 mg (Methyl Prednisolone Acetate) 17:43: 43 BROADCAST OPERATIONS ENGINEER CPT-J1100 Decadron 8mg (Dexamethasone) 17:43:42 BROADCAST OPERATIONS ENGINEER CPT-61639 Abx/Therapy Injection 17:43:42 BROADCAST OPERATIONS ENGINEER CPT-94263 Abx/Therapy Injection 17:43:42 BROADCAST OPERATIONS ENGINEER CPT-J1040 Depo Medrol 80 mg (Methyl Prednisolone Acetate) 09:43: 34 BROADCAST OPERATIONS ENGINEER CPT-J1100 Decadron 8mg (Dexamethasone) 09:43:34 BROADCAST OPERATIONS ENGINEER CPT-J0696 Rocephin 1gm Inj Solr 09:43:34 BROADCAST OPERATIONS ENGINEER CPT-25949 Wound Culture - LAB USE ONLY 14:00:21 CDT CPT-I/D I/D Abscess 09:16:37 CDT CPT-16455 Venipuncture Draw Fee 15:20:23 CDT CPT-25557 Microalbumin - LAB USE ONLY 16:02:19 CDT CPT-99291 CBC - LAB USE ONLY 16:02:19 CDT CPT-67410 Venipuncture Draw Fee 16:02:19 CDT CPT-G0438 Initial Annual Wellness Exam 08:10:28 CDT CPT-79122 Venipuncture Draw Fee 13:07:17 CDT CPT-G0008 Administration of Influenza Virus Vaccine 16:09:59 CDT CPT-34697 Fluzone Quadrivalent Intramuscular Suspension 0.5 ML 16: 09:59 CDT CPT-85398 Spec Collection and Handling Fee 15:05:50 CDT
--- OUTSIDE RECORDS SUMMARY | 2018-04-18 10:33 | XMS REPORT | Clinical Summary ---
Author Author Admin, AKUA Organization [facility] Address Unknown Phone Unavailable Allergies, Adverse [...] disease, chronic, stage III 585.3 Active Ca CASTLILO Chronic kidney disease, Stage III (moderate) C [...] Active Gali Negro Other malaise and fatigue Medication List Medication Instructions Start Date Stop Date Generic Name NDC Status Provider Patient Instruction NYSTATIN 436064 UNIT/ML M/T SUSP 5mL po QID x 10 days NYSTATIN 17515537368 No Longer Active Erin Garsia APRN Active PREDNISONE 20 MG TAB 1 tablet twice daily for 2 days, then 1 tablet once daily for 2 days PREDNISONE 73211289974 No Longer Active Robbie Busby MD Active CEFDINIR 300 MG ORAL CAPS Take 1 cap po bid x 10 days CEFDINIR 86905344826 No Longer Active Robbie Busby MD Active AMLODIPINE BESYLATE 10 MG TABS 1 tablet by mouth daily AMLODIPINE BESYLATE 89382957328 Active Robbie Busby MD Active CARVEDILOL 25 MG TABS 1 & 1/2 TAB po BID CARVEDILOL 81134865662 Active Robbie Busby MD Active VITAMIN D3 64326 UNIT CAPS 2 CAPS PO WEEKLY CHOLECALCIFEROL 31211232493 Active 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 [id number] 14340677215 Active Robbie Busby MD Active TOPIRAMATE 50 MG ORAL TABS take 1 tab po BID for migraines. TOPIRAMATE 65724658465 Active Robbie Busby MD Active HYDRALAZINE HCL 50 MG ORAL TABS TWO BY MOUTH THREE TIMES DAILY HYDRALAZINE HCL 14823467792 Active Robbie Busby MD Active MECLIZINE HCL 25 MG TAB one 4 times a day as needed for dizziness MECLIZINE HCL 77505653092 Active Robbie Busby MD Active TRILEPTAL 150 MG ORAL TABS 1 TAB PO Q HS OXCARBAZEPINE 29563823253 Active Robbie Busby MD Active TEMAZEPAM 15 MG ORAL CAPS 1 TAB PO Q HS TEMAZEPAM 12206956167 Active Robbie Busby MD Active ALPRAZOLAM 2 MG ORAL TABS 1 TAB PO BID ALPRAZOLAM 00823645551 Active Robbie Busby MD Active FENOFIBRATE 145 MG TABS Take one by mouth daily FENOFIBRATE 16868245482 No Longer Active Robbie Busby MD Active LAMISIL 125 MG ORAL PACK 1 TAB PO DAILY TERBINAFINE HCL 43732716783 Active Robbie Busby MD Active SPIRONOLACTONE 50 MG TABS 1 tablet by mouth twice a day SPIRONOLACTONE 21260425626 No Longer Active Robbie Busby MD Active HYDRALAZINE HCL 25 MG TABS 1 tablet by mouth tid for hypertension HYDRALAZINE HCL 92615072231 No Longer Active Robbie Busby MD Active VIIBRYD 40 MG TABS take 1 tab po qday for depression. VILAZODONE HCL 83707769000 No Longer Active Robbie Busby MD Active TERBINAFINE HCL 250 MG TABS 1 tab po qday for foot infection 2014 TERBINAFINE HCL 45712584883 No Longer Active Robbie Busby MD Active GABAPENTIN 300 MG CAPS 1 po q hs for nerve pain GABAPENTIN 04134435726 Active Robbie Busby MD Active FLONASE 50 MCG/ACT SUSP 1 spray each nostril twice daily for allergies and runny nose FLUTICASONE PROPIONATE 13701907518 Active Robbie Busby MD Active CHERATUSSIN AC 100-10 MG/5ML ORAL SOLN 7.5 mL PO q 4-6 hrs PRN cough GUAIFENESIN-CODEINE 70793462002 No Longer Active Robbie Busby MD Active AZITHROMYCIN 250 MG ORAL TABS 2 tablets PO today---then, 1 tablet PO daily x 4 more days (and 1 optional refill) AZITHROMYCIN 40720025791 No Longer Active Robbie Busby MD Active CLONIDINE HCL 0.2 MG ORAL TABS 1 TAB BY MOUTH EVERY 8 HOURS CLONIDINE HCL 96389549778 Active Robbie Busby MD Active HYDROCHLOROTHIAZIDE TABS Take one by mouth daily HYDROCHLOROTHIAZIDE TABS 60601682654 Active Alex ALVAREZ Active NORVASC 10 MG TAB 1 tablet by mouth daily AMLODIPINE BESYLATE 79451554192 No Longer Active Alex ALVAREZ Active IMDUR 60 MG TAB CR take 1 tab po qday for blood pressure ISOSORBIDE MONONITRATE Active Robbie Busby MD Active ISOSORBIDE DINITRATE 30 MG TABS Take one by mouth daily ISOSORBIDE DINITRATE 12848238718 No Longer Active Robbie Busby MD Active VIIBRYD 40 MG TABS 1 TA B PO DAILY VILAZODONE HCL 13323303159 Active Robbie Busby MD Active LORATADINE 10 MG TABS 1 tablet by mouth daily for congestion and allergies. LORATADINE 06232036990 Active Robbie Busby MD Active ZITHROMAX 250 MG TAB 2 po today, then 1 po q days 2-5 AZITHROMYCIN 06857807783 No Longer Active Robbie Busby MD Active HYDROCODONE-ACETAMINOPHEN 5-325 MG TABS 1 tab by mouth BID prn back pain 2013 HYDROCODONE-ACETAMINOPHEN 43250522975 Active Robbie Busby MD Active TNEASIAR-BPM-8 0.3 MG/24HR PTWK apply 2 patches q week for HTN CLONIDINE HCL 58728579919 Active Robbie Busby MD Active NITROSTAT 0.4 MG SUBL PRN NITROGLYCERIN 20127550969 Active Robbie Busby MD Active DOXAZOSIN MESYLATE 4 MG TABS Take one by mouth daily DOXAZOSIN MESYLATE 87370945694 Active Robbie Busby MD Active TOPROL XL 200 MG [id number] Take one by mouth daily METOPROLOL SUCCINATE 42419924318 Active Robbie Busby MD Active VENLAFAXINE HCL ER 150 MG [id number] Take one by mouth daily VENLAFAXINE HCL 36087950037 Active Robbie Busby MD Active LIPITOR 40 MG TABS Take one by mouth daily ATORVASTATIN CALCIUM 54776656001 Active Robbie Busby MD Active ISOSORBIDE DINITRATE 30 MG TABS Take one by mouth daily ISOSORBIDE DINITRATE 30 MG TABS 160813 ISOSORBIDE DINITRATE Inactive NORVASC 10 MG TAB 1 tablet by mouth daily NORVASC 10 MG TAB 476223 AMLODIPINE BESYLATE Inactive AZITHROMYCIN 250 MG ORAL TABS 2 tablets PO today---then, 1 tablet PO daily x 4 more days (and 1 optional refill) AZITHROMYCIN 250 MG ORAL TABS 9985953 AZITHROMYCIN Inactive CHERATUSSIN AC 100-10 MG/5ML ORAL SOLN 7.5 mL PO q 4-6 hrs PRN cough CHERATUSSIN AC 100-10 MG/5ML ORAL SOLN 777721 GUAIFENESIN- CODEINE Inactive VIIBRYD 40 MG TABS take 1 tab po qday for depression. VIIBRYD 40 MG TABS VILAZODONE HCL Inactive HYDRALAZINE HCL 25 MG TABS 1 tablet by mouth tid for hypertension HYDRALAZINE HCL 25 MG TABS 482178 HYDRALAZINE HCL Inactive SPIRONOLACTONE 50 MG TABS 1 tablet by mouth twice a day SPIRONOLACTONE 50 MG TABS 535647 SPIRONOLACTONE Inactive FENOFIBRATE 145 MG TABS Take one by mouth daily FENOFIBRATE 145 MG TABS 961655 FENOFIBRATE Inactive PROTONIX 40 MG SOLR 1 po qday for acid reflux PROTONIX 40 MG SOLR 180569 PANTOPRAZOLE SODIUM Inactive CEFDINIR 300 MG ORAL CAPS Take 1 cap po bid x 10 days CEFDINIR 300 MG ORAL CAPS 417877 CEFDINIR Inactive PREDNISONE 20 MG TAB 1 tablet twice daily for 2 days, then 1 tablet once daily for 2 days PREDNISONE 20 MG TAB 685842 PREDNISONE Inactive NYSTATIN 440967 UNIT/ML M/T SUSP 5mL po QID x 10 days NYSTATIN 103677 UNIT/ML M/T SUSP 945665 NYSTATIN Inactive ZITHROMAX 250 MG TAB 2 po today, then 1 po q days 2-5 ZITHROMAX 250 MG TAB 4633958 AZITHROMYCIN Inactive TERBINAFINE HCL 250 MG TABS 1 tab po qday for foot infection 2014 TERBINAFINE HCL 250 MG TABS 690309 TERBINAFINE HCL Inactive KEFLEX 500 MG CAP 1 po TID x 10 days KEFLEX 500 MG CAP 123180 CEPHALEXIN Inactive Advance Directives Directive Description Start [...] % 11.6-14.8 platelet count 229 10^3/MM^3 10*3/mm3 377-622 0214/09/06 leukocyte count, blood 9.7 10^3/MM^3 10*3/mm3 4.6-10.2 Lab Report: Comp. Metabolic Panel, Uric Acid - Chemistry sodium, serum 139 mmol/L 769-518 0197/04/22 carbon dioxide, venous blood 29.4 mmol/L 21.0-32.0 [...] to Follow Negative Lab Report: VITAMIN D, 25-HYDROXY/15453 - Chemistry vitamin D 25-hydroxy, serum 23 ng/mL 30-100 Encounters Code Encounter Date Provider Facility CPT-78897 Level 4 Est. Patient 22:55:17 CDT Robbie Busby MD [facility] CPT-97923 Level 3 Est. Patient 12:38:24 CDT Desmond Diaz DO [facility] CPT-23164 Level 4 Est. 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 Patient 14:50:10 CDT Robbie Busby MD [facility] CPT-78426 Level 4 Est. Patient 23:30:43 CDT Robbie Busby MD [facility] CPT-40622 Level 4 Est. Patient 10:30:43 CDT Robbie Busby MD [facility] CPT-56420 Level 3 Est. Patient 17:08:12 CDT Alex ALVAREZ [facility] CPT-37404 Level 4 Est. Patient 17:51:38 CDT Robbie Busby MD [facility] CPT-03475 Level 4 Est. Patient 14:00:21 CDT Robbie Busby MD [facility] CPT-44999 Level 4 Est. Patient 12:46:48 CDT Robbie Busby MD [facility] CPT-40191 Level 4 Est. Patient 13:34:33 CDT Robbie Busby MD [facility] CPT-42047 Level 4 Est. Patient 16:58:28 CDT Robbie Busby MD [facility] CPT-11114 Level 3 Est. Patient 19:36:53 CDT Alex Shaw [facility] CPT-48049 Level 3 Est. Patient 12:58:15 CDT Robbie Busby MD [facility] Procedures Code Procedure Name Date Entry Date Standard Description CPT-92997 Microalbumin - LAB USE ONLY 16:02:19 CDT CPT-51271 CBC - LAB USE ONLY 16:02:19 CDT CPT-20689 Venipuncture Draw Fee 16:02:19 CDT CPT-G0438 Initial Annual Wellness Exam 08:10:28 CDT CPT-44462 Venipuncture Draw Fee 13:07:17 CDT CPT-G0008 Administration of Influenza Virus Vaccine 16:09:59 CDT CPT-58517 Fluzone Quadrivalent Intramuscular Suspension 0.5 ML 16: 09:59 CDT CPT-72088 Spec Collection and Handling Fee 15:05:50 CDT
--- OUTSIDE RECORDS SUMMARY | 2018-04-18 10:34 | XMS REPORT | Clinical Summary ---
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2 Active Erin Mai BRAIN PICKER Other testicular hypofunction Low back pain, chronic [...] Busby MD Body Mass Index 36.0-36.9, adult Upper respiratory infection, viral 465.9 Active Renny Bella MD Acute upper respiratory infections of unspecified site Sinusitis ICD-461.9 Inactive 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 EQUITY TRADER 2017 Low back pain, acute ICD-724.2 Inactive 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 EQUITY TRADER Low back pain, chronic ICD-724.2 Inactive 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 EQUITY TRADER Bronchitis, acute ICD-466.0 Inactive 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 EQUITY TRADER Onychomycosis, toenails ICD-110.1 Inactive 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 EQUITY TRADER Dizziness ICD-780.4 Inactive 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 EQUITY TRADER 2017 Folliculitis ICD-704.8 Inactive 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 EQUITY TRADER Pharyngitis-Acute ICD-462 Inactive 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 EQUITY TRADER Fatigue ICD-780.79 Inactive 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 EQUITY TRADER 09/20 Hypertension, secondary, malignant ICD-405.09 Inactive 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 EQUITY TRADER Insect bite, infected ICD-919.5 Inactive 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 EQUITY TRADER Abscess, skin ICD-682.9 Inactive 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 EQUITY TRADER URI ICD-465.9 Inactive 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 EQUITY TRADER Sinusitis - acute ICD-461.9 Inactive 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 EQUITY TRADER Acute confusion ICD-293.0 Inactive 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 EQUITY TRADER Headache ICD-784.0 Inactive 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 EQUITY TRADER 09/20 Back pain ICD-724.5 Inactive 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 EQUITY TRADER 2017 Rib pain, right sided ICD-786.50 Inactive 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 EQUITY TRADER Myalgias ICD-729.1 Inactive 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 EQUITY TRADER 09/20 URI ICD-465.9 Inactive Emliy Atwood EQUITY TRADER Bronchitis-Acute ICD-466.0 Inactive Desmond Diaz DO Medication List Medication Instructions Start Date Stop Date Generic Name NDC Status Provider Patient Instruction PREDNISONE 20 MG ORAL TABLET 2 po qd x 5 days PREDNISONE [id number] No Longer Active Renny Bella MD Active PROMETHAZINE-CODEINE 6.25-10 MG/5ML ORAL SYRUP 5ml po q6hr PRN Cough PROMETHAZINE-CODEINE 08892575338 Active Renny Bella MD Active MONTELUKAST SODIUM 10 MG ORAL TABLET 1 tab po daily for allergies MONTELUKAST SODIUM 21040560258 Active JONATHAN Moncada Active IMDUR 60 MG ORAL TABLET EXTENDED RELEASE 24 HOUR 1 po q day ISOSORBIDE MONONITRATE 36333168734 Active Emma Hernandez Active METOPROLOL SUCCINATE ER 200 MG ORAL TABLET EXTENDED RELEASE 24 HOUR take 1 tab po qday for high blood pressure and rapid pulse METOPROLOL SUCCINATE 60987621174 Active Robbie Busby MD Active [id number]-4 0.3 MG/24HR TRANSDERMAL PATCH WEEKLY apply 2 patches q week for HTN CLONIDINE HCL 33408118760 No Longer Active Robbie Busby MD Active IMDUR 60 MG ORAL TABLET EXTENDED RELEASE 24 HOUR take 1 tab po qday for blood pressure ISOSORBIDE MONONITRATE 52137340955 No Longer Active Robbie Busby MD Active TEMAZEPAM 15 MG ORAL CAPSULE 1 TAB PO Q HS TEMAZEPAM 68153779907 No Longer Active Robbie Busby MD Active TOPIRAMATE 50 MG ORAL TABLET 1 po BID for migraines TOPIRAMATE 51237189804 No Longer Active Robbie Busby MD Active CYCLOBENZAPRINE HCL 10 MG ORAL TABLET 1 tablet by mouth three times daily as needed for muscle spasm/pain CYCLOBENZAPRINE HCL 42675309363 No Longer Active Robbie Busby MD Active TOPROL XL 200 MG ORAL TABLET EXTENDED RELEASE 24 HOUR Take one by mouth daily METOPROLOL SUCCINATE 86489584869 No Longer Active Robbie Busby MD Active METFORMIN HCL 500 MG ORAL TABLET 1 tablet by mouth daily for diabetes type 2 METFORMIN HCL 25269028953 Active Robbie Busby MD Active SINGULAIR 10 MG ORAL TABLET 1 po qday for allergies. MONTELUKAST SODIUM 31927561266 No Longer Active Robbie Busby MD Active PREDNISONE 20 MG ORAL TABLET two tabs by mouth today, then one tab by mouth days two and three PREDNISONE 65481990111 No Longer Active Robbie Busby MD Active AZITHROMYCIN 250 MG ORAL TABLET 2 po qd x 1 day, then 1 po qd x 4 days 09/20 AZITHROMYCIN 15565002054 No Longer Active Desmond Diaz DO Active TOPIRAMATE 50 MG ORAL TABLET take 1 tab po BID for migraines. TOPIRAMATE 06598800918 No Longer Active Desmond Diaz DO Active CYCLOBENZAPRINE HCL 10 MG ORAL TABLET 1 po TID PRN muscle spasm/pain for 10 days CYCLOBENZAPRINE HCL 93865140476 No Longer Active Desmond Diaz DO Active GUAIFENESIN ER 600 MG ORAL TABLET EXTENDED RELEASE 12 HOUR 1 tab po q am 2016 GUAIFENESIN 22408713184 No Longer Active Robbie Busby MD Active DIVALPROEX SODIUM ER 500 MG ORAL TABLET EXTENDED RELEASE 24 HOUR Once daily DIVALPROEX SODIUM 67139511009 Active Robbie Busby MD Active DEPO-TESTOSTERONE 200 MG/ML INTRAMUSCULAR SOLUTION 1 IM Injections every 2 weeks for low testosterone TESTOSTERONE CYPIONATE 84777452050 Active Zulema Blank LPN Active FLUTICASONE PROPIONATE 50 MCG/ACT NASAL SUSPENSION 2 sprays per nostril bid for 1 week, then 1 spray bid FLUTICASONE PROPIONATE 52894849161 Active Jishantel Rodríguez APRN Active HYDRALAZINE HCL 25 MG ORAL TABLET Take 1 tab BID. HYDRALAZINE HCL 80511280078 Active Jishantel Rodríguez APRN Active VITAMIN D3 68732 UNIT ORAL TABLET 2 po weekly CHOLECALCIFEROL 14538515170 Active Robbie Busby MD Active OXYCODONE HCL ER 10 MG ORAL TABLET ER 12 HOUR ABUSE-DETERRENT 1 tab po 3 times qd. OXYCODONE HCL 65861472897 Active Robbie Busby MD Active NITROSTAT 0.4 MG SUBLINGUAL TABLET SUBLINGUAL PRN NITROGLYCERIN 27187441015 No Longer Active Robbie Busby MD Active LORATADINE 10 MG ORAL TABLET 1 tablet by mouth daily for congestion and allergies. LORATADINE 19214592345 No Longer Active Robbie Busby MD Active FLONASE 50 MCG/ACT NASAL SUSPENSION 1 spray each nostril twice daily for allergies and runny nose FLUTICASONE PROPIONATE 34570013261 No Longer Active Robbie Busby MD Active FIORICET 50-300-40 MG ORAL CAPSULE take 1 tab po qday prn migraines. [id number]-PCOV-[id number] 29337596746 No Longer Active Robbie Busby MD Active VITAMIN D3 37140 UNIT ORAL CAPSULE 2 CAPS PO WEEKLY CHOLECALCIFEROL 35733425244 No Longer Active Robbie Busby MD Active CYCLOBENZAPRINE HCL 10 MG ORAL TABLET 1 tablet by mouth three times daily as needed for muscle spasm/pain for 10 days CYCLOBENZAPRINE HCL 96749567043 No Longer Active Robbie Busyb MD Active PREDNISONE 20 MG ORAL TABLET take 3 tabs daily for 3 days, 2 tabs daily for 3 days, 1 tab daily for 3 days, 1/2 tab daily for 4 days PREDNISONE 81854249161 No Longer Active Erin Arezane GONZALEZN Active CLONIDINE HCL 0.2 MG ORAL TABLET 1 TAB BY MOUTH EVERY 8 HOURS CLONIDINE HCL 54006553924 No Longer Active Erin Arell BRAIN PICKER Active MECLIZINE HCL 25 MG ORAL TABLET one 4 times a day as needed for dizziness MECLIZINE HCL 44294942392 No Longer Active Erin Arell BRAIN PICKER Active SPIRONOLACTONE 25 MG ORAL TABLET 4 tablets by mouth daily SPIRONOLACTONE 09881175232 No Longer Active Erin Arell BRAIN PICKER Active LEVAQUIN 500 MG ORAL TABLET 1 tablet by mouth daily for 7 days LEVOFLOXACIN 50822367872 No Longer Active Erin Arell BRAIN PICKER Active BACTRIM DS 800-160 MG ORAL TABLET 1 tab by mouth twice daily 2015 TRIMETHOPRIM-SULFAMETHOXAZOLE 29628937654 No Longer Active Robbie Busby MD Active HYDRALAZINE HCL 50 MG ORAL TABLET TWO BY MOUTH THREE TIMES DAILY HYDRALAZINE HCL 82591172605 No Longer Active Rober Rodríguez APRN Active HYDROCODONE-ACETAMINOPHEN 5-325 MG ORAL TABLET 1 tab by mouth BID prn back pain HYDROCODONE-ACETAMINOPHEN 45647923657 No Longer Active Rober Rodríguez APRN Active HYDROCHLOROTHIAZIDE TABLET Take one by mouth daily HYDROCHLOROTHIAZIDE TABS 06643115435 No Longer Active 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 BRAIN PICKER Active LAMISIL 125 MG ORAL PACKET 1 TAB PO DAILY TERBINAFINE HCL 10179425005 No Longer Active 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 BRAIN PICKER Active TRILEPTAL 150 MG ORAL TABLET 1 TAB PO Q HS OXCARBAZEPINE 91826053747 No Longer Active 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 BRAIN PICKER Active BETADINE 10 % EXTERNAL SOLUTION 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 07/29 POVIDONE-IODINE 29105935943 No Longer Active 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 BRAIN PICKER Active NYSTATIN 337681 UNIT/ML MOUTH/THROAT SUSPENSION 5mL po QID x 10 days NYSTATIN 26031135273 No Longer Active Erin Mai APRN Active PREDNISONE 20 MG ORAL TABLET 1 tablet twice daily for 2 days, then 1 tablet once daily for 2 days PREDNISONE 36760921870 No Longer Active Robbie Busby MD Active CEFDINIR 300 MG ORAL CAPSULE Take 1 cap po bid x 10 days CEFDINIR 21003047513 No Longer Active Robbie Busby MD Active AMLODIPINE BESYLATE 10 MG ORAL TABLET 1 tablet by mouth daily AMLODIPINE BESYLATE 65566509023 Active Robbie Busyb MD Active CARVEDILOL 25 MG ORAL TABLET 1 & 1/2 TAB po BID CARVEDILOL 48400642548 Active Robbie Busby MD Active NEXIUM 40 MG ORAL CAPSULE DELAYED RELEASE 1 cap by mouth daily ESOMEPRAZOLE MAGNESIUM 36424813076 Active Robbie Busby MD Active PROTONIX 40 MG INTRAVENOUS SOLUTION RECONSTITUTED 1 po qday for acid reflux PANTOPRAZOLE SODIUM 84383207855 No Longer Active Gali Raida Active KEFLEX 500 MG ORAL CAPSULE 1 po TID x 10 days CEPHALEXIN 76387889733 No Longer Active Robbie Busby MD Active ALPRAZOLAM 2 MG ORAL TABLET 1 TAB PO BID ALPRAZOLAM 62372998720 Active Robbie Busby MD Active FENOFIBRATE 145 MG ORAL TABLET Take one by mouth daily FENOFIBRATE 09766662793 No Longer Active Robbie Busby MD Active SPIRONOLACTONE 50 MG ORAL TABLET 1 tablet by mouth twice a day SPIRONOLACTONE 59266882981 No Longer Active Robbie Busby MD Active HYDRALAZINE HCL 25 MG ORAL TABLET 1 tablet by mouth tid for hypertension 2013 HYDRALAZINE HCL 20397140984 No Longer Active Robbie Busby MD Active VIIBRYD 40 MG ORAL TABLET take 1 tab po qday for depression. 2014 VILAZODONE HCL 44548691446 No Longer Active Robbie Busby MD Active TERBINAFINE HCL 250 MG ORAL TABLET 1 tab po qday for foot infection TERBINAFINE HCL 99149884991 No Longer Active Robbie Busby MD Active GABAPENTIN 300 MG ORAL CAPSULE 1 po q hs for nerve pain GABAPENTIN 41460574823 Active Robbie Busby MD Active CHERATUSSIN AC 100-10 MG/5ML ORAL SOLUTION 7.5 mL PO q 4-6 hrs PRN cough 2014 GUAIFENESIN-CODEINE 31995454375 No Longer Active Robbie Busby MD Active AZITHROMYCIN 250 MG ORAL TABLET 2 tablets PO today---then, 1 tablet PO daily x 4 more days (and 1 optional refill) AZITHROMYCIN 76740202349 No Longer Active Robbie Busby MD Active NORVASC 10 MG ORAL TABLET 1 tablet by mouth daily AMLODIPINE BESYLATE 39776119931 No Longer Active Alex ALVAREZ Active ISOSORBIDE DINITRATE 30 MG ORAL TABLET Take one by mouth daily ISOSORBIDE DINITRATE 69142448367 No Longer Active Robbie Busby MD Active VIIBRYD 40 MG ORAL TABLET 1 TA B PO DAILY VILAZODONE HCL 28758871174 Active Robbie Busby MD Active ZITHROMAX 250 MG ORAL TABLET 2 po today, then 1 po q days 2-5 AZITHROMYCIN 30502653877 No Longer Active Robbie Busby MD Active DOXAZOSIN MESYLATE 4 MG ORAL TABLET Take one by mouth daily DOXAZOSIN MESYLATE 07935257276 Active Robbie Busby MD Active VENLAFAXINE HCL ER 150 MG ORAL TABLET EXTENDED RELEASE 24 HOUR Take one by mouth daily VENLAFAXINE HCL 54283063196 Active Robbie Busby MD Active LIPITOR 40 MG ORAL TABLET Take one by mouth daily ATORVASTATIN CALCIUM 92849170561 Active Robbie Busby MD Active ISOSORBIDE DINITRATE 30 MG ORAL TABLET Take one by mouth daily ISOSORBIDE DINITRATE 30 MG ORAL TABLET 865346 ISOSORBIDE DINITRATE Inactive NORVASC 10 MG ORAL TABLET 1 tablet by mouth daily NORVASC 10 MG ORAL TABLET 811561 AMLODIPINE BESYLATE Inactive AZITHROMYCIN 250 MG ORAL TABLET 2 tablets PO today---then, 1 tablet PO daily x 4 more days (and 1 optional refill) AZITHROMYCIN 250 MG ORAL TABLET 537407 AZITHROMYCIN Inactive CHERATUSSIN AC 100-10 MG/5ML ORAL SOLUTION 7.5 mL PO q 4-6 hrs PRN cough 2014 CHERATUSSIN AC 100-10 MG/5ML ORAL SOLUTION 933494 GUAIFENESIN-CODEINE Inactive VIIBRYD 40 MG ORAL TABLET take 1 tab po qday for depression. 2014 VIIBRYD 40 MG ORAL TABLET VILAZODONE HCL Inactive HYDRALAZINE HCL 25 MG ORAL TABLET 1 tablet by mouth tid for hypertension 2013 HYDRALAZINE HCL 25 MG ORAL TABLET 925253 HYDRALAZINE HCL Inactive SPIRONOLACTONE 50 MG ORAL TABLET 1 tablet by mouth twice a day SPIRONOLACTONE 50 MG ORAL TABLET 536034 SPIRONOLACTONE Inactive FENOFIBRATE 145 MG ORAL TABLET Take one by mouth daily FENOFIBRATE 145 MG ORAL TABLET 473092 FENOFIBRATE Inactive PROTONIX 40 MG INTRAVENOUS SOLUTION RECONSTITUTED 1 po qday for acid reflux PROTONIX 40 MG INTRAVENOUS SOLUTION RECONSTITUTED 398317 PANTOPRAZOLE SODIUM Inactive CEFDINIR 300 MG ORAL CAPSULE Take 1 cap po bid x 10 days CEFDINIR 300 MG ORAL CAPSULE 749316 CEFDINIR Inactive PREDNISONE 20 MG ORAL TABLET 1 tablet twice daily for 2 days, then 1 tablet once daily for 2 days PREDNISONE 20 MG ORAL TABLET 653094 PREDNISONE Inactive NYSTATIN 036226 UNIT/ML MOUTH/THROAT SUSPENSION 5mL po QID x 10 days NYSTATIN 710201 UNIT/ML MOUTH/THROAT SUSPENSION 691176 NYSTATIN Inactive BETADINE 10 % EXTERNAL SOLUTION 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 07/29 BETADINE 10 % EXTERNAL SOLUTION 3215970 POVIDONE-IODINE Inactive TRILEPTAL 150 MG ORAL TABLET 1 TAB PO Q HS TRILEPTAL 150 MG ORAL TABLET 519762 OXCARBAZEPINE Inactive LAMISIL 125 MG ORAL PACKET 1 TAB PO DAILY LAMISIL 125 MG ORAL PACKET TERBINAFINE HCL Inactive HYDROCHLOROTHIAZIDE TABLET Take one by mouth daily HYDROCHLOROTHIAZIDE TABLET HYDROCHLOROTHIAZIDE TABS Inactive HYDROCODONE-ACETAMINOPHEN 5-325 MG ORAL TABLET 1 tab by mouth BID prn back pain HYDROCODONE-ACETAMINOPHEN 5-325 MG ORAL TABLET 810011 HYDROCODONE-ACETAMINOPHEN Inactive HYDRALAZINE HCL 50 MG ORAL TABLET TWO BY MOUTH THREE TIMES DAILY HYDRALAZINE HCL 50 MG ORAL TABLET 475070 HYDRALAZINE HCL Inactive LEVAQUIN 500 MG ORAL TABLET 1 tablet by mouth daily for 7 days LEVAQUIN 500 MG ORAL TABLET 783707 LEVOFLOXACIN Inactive SPIRONOLACTONE 25 MG ORAL TABLET 4 tablets by mouth daily SPIRONOLACTONE 25 MG ORAL TABLET 623592 SPIRONOLACTONE Inactive MECLIZINE HCL 25 MG ORAL TABLET one 4 times a day as needed for dizziness MECLIZINE HCL 25 MG ORAL TABLET 230866 MECLIZINE HCL Inactive CLONIDINE HCL 0.2 MG ORAL TABLET 1 TAB BY MOUTH EVERY 8 HOURS CLONIDINE HCL 0.2 MG ORAL TABLET 890657 CLONIDINE HCL Inactive CYCLOBENZAPRINE HCL 10 MG ORAL TABLET 1 tablet by mouth three times daily as needed for muscle spasm/pain for 10 days CYCLOBENZAPRINE HCL 10 MG ORAL TABLET 166310 CYCLOBENZAPRINE HCL Inactive VITAMIN D3 42885 UNIT ORAL CAPSULE 2 CAPS PO WEEKLY VITAMIN D3 68854 UNIT ORAL CAPSULE CHOLECALCIFEROL Inactive FIORICET 50-300-40 MG ORAL CAPSULE take 1 tab po qday prn migraines. FIORICET 50-300-40 MG ORAL CAPSULE 662571 BUTALBITAL-APAP- CAFFEINE Inactive FLONASE 50 MCG/ACT NASAL SUSPENSION 1 spray each nostril twice daily for allergies and runny nose FLONASE 50 MCG/ACT NASAL SUSPENSION 2538279 FLUTICASONE PROPIONATE Inactive LORATADINE 10 MG ORAL TABLET 1 tablet by mouth daily for congestion and allergies. LORATADINE 10 MG ORAL TABLET 464894 LORATADINE Inactive NITROSTAT 0.4 MG SUBLINGUAL TABLET SUBLINGUAL PRN NITROSTAT 0.4 MG SUBLINGUAL TABLET SUBLINGUAL 880733 NITROGLYCERIN Inactive GUAIFENESIN ER 600 MG ORAL TABLET EXTENDED RELEASE 12 HOUR 1 tab po q am 2016 GUAIFENESIN ER 600 MG ORAL TABLET EXTENDED RELEASE 12 HOUR GUAIFENESIN Inactive CYCLOBENZAPRINE HCL 10 MG ORAL TABLET 1 po TID PRN muscle spasm/pain for 10 days CYCLOBENZAPRINE HCL 10 MG ORAL TABLET 559623 CYCLOBENZAPRINE HCL Inactive TOPIRAMATE 50 MG ORAL TABLET take 1 tab po BID for migraines. TOPIRAMATE 50 MG ORAL TABLET 649457 TOPIRAMATE Inactive PREDNISONE 20 MG ORAL TABLET two tabs by mouth today, then one tab by mouth days two and three PREDNISONE 20 MG ORAL TABLET 110648 PREDNISONE Inactive TOPROL XL 200 MG ORAL TABLET EXTENDED RELEASE 24 HOUR Take one by mouth daily TOPROL XL 200 MG ORAL TABLET EXTENDED RELEASE 24 HOUR METOPROLOL SUCCINATE Inactive CYCLOBENZAPRINE HCL 10 MG ORAL TABLET 1 tablet by mouth three times daily as needed for muscle spasm/pain CYCLOBENZAPRINE HCL 10 MG ORAL TABLET 793543 CYCLOBENZAPRINE HCL Inactive TOPIRAMATE 50 MG ORAL TABLET 1 po BID for migraines TOPIRAMATE 50 MG ORAL TABLET 023169 TOPIRAMATE Inactive TEMAZEPAM 15 MG ORAL CAPSULE 1 TAB PO Q HS TEMAZEPAM 15 MG ORAL CAPSULE 782034 TEMAZEPAM Inactive IMDUR 60 MG ORAL TABLET EXTENDED RELEASE 24 HOUR take 1 tab po qday for blood pressure IMDUR 60 MG ORAL TABLET EXTENDED RELEASE 24 HOUR ISOSORBIDE MONONITRATE Inactive [id number] 0.3 MG/24HR TRANSDERMAL PATCH WEEKLY apply 2 patches q week for HTN [id number] 0.3 MG/24HR TRANSDERMAL PATCH WEEKLY 881157 CLONIDINE HCL Inactive ZITHROMAX 250 MG ORAL TABLET 2 po today, then 1 po q days 2-5 ZITHROMAX 250 MG ORAL TABLET 691688 AZITHROMYCIN Inactive TERBINAFINE HCL 250 MG ORAL TABLET 1 tab po qday for foot infection TERBINAFINE HCL 250 MG ORAL TABLET 711627 TERBINAFINE HCL Inactive KEFLEX 500 MG ORAL CAPSULE 1 po TID x 10 days KEFLEX 500 MG ORAL CAPSULE 100734 CEPHALEXIN Inactive BACTRIM DS 800-160 MG ORAL TABLET 1 tab by mouth twice daily 2015 BACTRIM DS 800-160 MG ORAL TABLET 751427 TRIMETHOPRIM- SULFAMETHOXAZOLE Inactive PREDNISONE 20 MG ORAL TABLET take 3 tabs daily for 3 days, 2 tabs daily for 3 days, 1 tab daily for 3 days, 1/2 tab daily for 4 days PREDNISONE 20 MG ORAL TABLET 810281 PREDNISONE Inactive AZITHROMYCIN 250 MG ORAL TABLET 2 po qd x 1 day, then 1 po qd x 4 days 09/20 AZITHROMYCIN 250 MG ORAL TABLET 836164 AZITHROMYCIN Inactive SINGULAIR 10 MG ORAL TABLET 1 po qday for allergies. SINGULAIR 10 MG ORAL TABLET 613912 MONTELUKAST SODIUM Inactive PREDNISONE 20 MG ORAL TABLET 2 po qd x 5 days PREDNISONE 20 MG ORAL TABLET 115802 PREDNISONE Inactive Advance Directives Directive Description Start Date DISCUSSED WITH PATIENT -- NO DECISION MADE Vital Signs Date Name Value Unit Range Description blood pressure, diastolic 106 mm[Hg] BP [place] blood pressure, systolic 172 mm[Hg] BP sys height E&M 64 [in_us] Bdy height pulse rate E&M 81 /min Heart rate temperature E&M 98.4 [degF] Body temperature weight E&M 216 [lb_av] Weight Measured blood pressure, diastolic 103 mm[Hg] BP del [...] temperature weight E&M 218 [lb_av] Weight Measured Diagnostic Results Date Name Value Unit Range Description Lab Report: CBC W/DIFF, Comp. Metabolic Panel, CKI, UADIP W/MICRO, AUTO - Chemistry sodium, serum 142 mmol/L 942-429 2630/07/17 carbon dioxide, venous blood 28.2 mmol/L 21.0-32.0 [...] pH, urine, semiquantitative 5.0 5.0-8.5 Lab Report: Comp. Metabolic Panel - Chemistry sodium, serum 141 mmol/L 816-960 3218/02/13 carbon dioxide, venous blood 23.9 mmol/L 21.0-32.0 [...] 6.9 % 4.3-6.0 sodium, serum 139 mmol/L 380-661 7401/01/04 potassium, serum 3.9 mmol/L 3.5-5.2 chloride, serum 103 mmol/L 98-107 carbon dioxide, venous blood 26.9 mmol/L 21.0-32.0 blood glucose 106 mg/dL 65-110 calcium, serum 9.0 mg/dL 8.5-10.1 urea nitrogen, blood 20 mg/dL 7-18 creatinine, serum 1.46 mg/dL 0.60-1.30 Lab Report: MICROALB/CREAT W/RATIO - Chemistry albumin/creatinine ratio, urine <30 mg/g Normal mg/g mg/g{creat} 0-29 Lab Report: MICROALB/CREAT W/RATIO - Lab microalbumin, urine 30 mg/L 0-19 Lab Report: Prostatic Specific Ag - Chemistry prostate specific antigen 1.80 ng/mL 0.00-4.00 Lab Report: VITAMIN D, 25-HYDROXY/09608 - Chemistry vitamin D 25-hydroxy, serum 25 ng/mL 30-100 Encounters Code Encounter Date Provider Facility CPT-77691 Level 3 Est. Patient 13:59:07 CDT Renny Bella MD [facility] CPT-50874 Level 3 Est. Patient 16:04:17 CDT Robbie Busby MD [facility] CPT-85834 Level 4 Est. Patient 09:50:01 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 Robbie Busby MD [facility] CPT-71296 Level 4 Est. 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 Patient 13:07:39 [employer] 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 Robbie Busby MD [facility] CPT-87574 Level 4 Est. Patient 15:23:44 [employer] 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 Desmond Diaz DO [facility] CPT-70603 Level 3 Est. Patient 15:40:49 CDT Robbie Busby MD [facility]-58533 Level 4 Est. Patient 15:18:19 CDT Robbie Busby MD [facility] CPT-10289 Level 3 Est. Patient 09:00:37 CDT Rober Rodríguez [facility]-39526 Level 3 Est. Patient 16:07:10 CDT Robbie Busby MD [facility] CPT-84039 Level 4 Est. Patient 11:56:16 CDT Erin Mai [facility] CPT-52714 Level 3 Est. Patient 17:48:02 CDT Robbie Busby MD [facility] CPT-34791 Level 4 Est. Patient 12:00:49 [employer] 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 Rober Rodríguez [facility] CPT-69216 Level 3 Est. Patient 09:16:37 CDT Robbie Busby MD [facility] CPT-95163 Level 3 Est. Patient 19:38:43 CDT Robbie Busby MD [facility]-19246 Level 3 Est. Patient 11:53:38 CDT Robbie Busby MD [facility] CPT-15469 Level 4 Est. Patient 12:52:22 CDT Agnieszkald Rodolfoneha ARGUELLO [facility] CPT-26705 Level 4 Est. Patient 22:55:17 CDT Robbie Busby MD [facility]-78960 Level 3 Est. Patient 12:38:24 CDT Desmond Diaz DO [facility] CPT-25923 Level 4 Est. 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 Patient 14:50:10 CDT Robbie Busby MD [facility] CPT-34760 Level 4 Est. Patient 23:30:43 CDT Robbie Busby MD [facility] named [facility]-74854 Level 4 Est. Patient 10:30:43 CDT Robbie Busby MD [facility] named [facility]-97511 Level 3 Est. Patient 17:08:12 CDT Alex Shaw [facility] CPT-86202 Level 4 Est. Patient 17:51:38 CDT Robbie Busby MD [facility] CPT-49507 Level 4 Est. Patient 14:00:21 CDT Robbie Busby MD [facility] CPT-69050 Level 4 Est. Patient 12:46:48 CDT Robbie Busby MD [facility] CPT-65339 Level 4 Est. Patient 13:34:33 CDT Robbie Busby MD [facility] CPT-93964 Level 4 Est. Patient 16:58:28 CDT Robbie Busby MD [facility]-71488 Level 3 Est. Patient 19:36:53 CDT Alex Shaw [facility] CPT-65437 Level 3 Est. Patient 12:58:15 CDT Robbie Busby MD [facility] Procedures Code Procedure Name Date Entry Date Standard Description CPT-J1071 Depo Testosterone 200mg 09:01:06 CDT CPT-63675 Abx/Therapy Injection 09:01:06 CDT CPT-J1100 Decadron 8mg (Dexamethasone) 16:04:17 CDT CPT-J1040 Depo Medrol 80 mg (Methyl Prednisolone Acetate) 16:04: 17 CDT CPT-J1071 Depo Testosterone 200mg 08:56:46 CDT CPT-75832 Abx/Therapy Injection 08:56:45 CDT CPT-J1071 Depo Testosterone 200mg 08:26:27 CDT CPT-88877 Abx/Therapy Injection 08:26:27 CDT CPT-J1071 Depo Testosterone 200mg 10:27:10 CDT CPT-76592 Abx/Therapy Injection 10:27:10 CDT CPT-J1071 Depo Testosterone 200mg 16:10:29 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 CPT-97108 Abx/Therapy Injection 16:10:29 [employer] 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 CPT-J1071 Depo Testosterone 200mg 16:13:47 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 CPT-34073 Abx/Therapy Injection 16:13:46 [employer] 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 CPT-J1071 Depo Testosterone 200mg 15:33:58 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 CPT-38802 Abx/Therapy Injection 15:33:58 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 CPT-J1071 Depo Testosterone 200mg 09:38:36 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 CPT-62827 Abx/Therapy Injection 09:38:36 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 CPT-J1071 Depo Testosterone 200mg 10:22:56 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 CPT-60205 Abx/Therapy Injection 10:22:56 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 CPT-J1071 Depo Testosterone 200mg 15:40:23 CDT CPT-28004 Abx/Therapy Injection 15:40:23 CDT CPT-J1071 Depo Testosterone 200mg 14:20:43 CDT CPT-43528 Abx/Therapy Injection 14:20:43 CDT CPT-J1071 Depo Testosterone 200mg 14:17:22 CDT CPT-06895 Abx/Therapy Injection 14:17:22 CDT CPT-J1071 Depo Testosterone 200mg 09:03:53 CDT CPT-57061 Abx/Therapy Injection 09:03:53 CDT CPT-G0439 [facility] Annual Wellness Exam 16:47:44 CDT CPT-J1071 Depo Testosterone 200mg 09:06:28 CDT CPT-97513 Abx/Therapy Injection 09:06:28 CDT CPT-J1071 Depo Testosterone 200mg 08:30:01 CDT CPT-86196 Abx/Therapy Injection 08:30:01 CDT CPT-J1071 Depo Testosterone 200mg 08:24:00 CDT CPT-83660 Abx/Therapy Injection 08:24:00 CDT CPT-26340 Venipuncture Draw Fee 14:39:06 CDT CPT-61689 Ribs unilateral 2V - XRAY USE ONLY 12:10:11 CDT CPT-71132 First Vx - Ix admin for Medicare patients 16:32:53 CDT CPT-53418 Boostrix Intramuscular Suspension 5-2.5-18.5 16:32:53 CDT CPT-19229 TB Skin Test 11:42:28 CDT CPT-60381 Tdap 7yrs or > 11:42:28 CDT CPT-J0696 Rocephin 1000 mg (Ceftriaxone) 17:43:43 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 CPT-J1040 Depo Medrol 80 mg (Methyl Prednisolone Acetate) 17:43: 43 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 CPT-J1100 Decadron 8mg (Dexamethasone) 17:43:42 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 CPT-44346 Abx/Therapy Injection 17:43:42 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 CPT-68155 Abx/Therapy Injection 17:43:42 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 CPT-J1040 Depo Medrol 80 mg (Methyl Prednisolone Acetate) 09:43: 34 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 CPT-J1100 Decadron 8mg (Dexamethasone) 09:43:34 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 CPT-J0696 Rocephin 1gm Inj Solr 09:43:34 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 CPT-02389 Wound Culture - LAB USE ONLY 14:00:21 CDT CPT-I/D I/D Abscess 09:16:37 CDT CPT-01027 Venipuncture Draw Fee 15:20:23 CDT CPT-88257 Microalbumin - LAB USE ONLY 16:02:19 CDT CPT-16440 CBC - LAB USE ONLY 16:02:19 CDT CPT-38172 Venipuncture Draw Fee 16:02:19 CDT CPT-G0438 Initial Annual Wellness Exam 08:10:28 CDT CPT-80535 Venipuncture Draw Fee 13:07:17 CDT CPT-G0008 Administration of Influenza Virus Vaccine 16:09:59 CDT CPT-31666 Fluzone Quadrivalent Intramuscular Suspension 0.5 ML 16: 09:59 CDT CPT-31627 Spec Collection and Handling Fee 15:05:50 CDT
--- OUTSIDE RECORDS SUMMARY | 2018-04-18 10:35 | XMS REPORT | Clinical Summary ---
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 Desmond Diaz DO Other malignant secondary hypertension Tachycardia 785.0 Active Rober Rodríguez DRIVER SERVICE TECHNICIAN Tachycardia, unspecified Insect bite, infected 919.5 Resolved Desmond Diaz DO Insect bite, nonvenomous, of other, multiple, and unspecified sites, infected Abscess, skin 682.9 Resolved Desmond Diaz DO Cellulitis and abscess of unspecified sites URI 465.9 Resolved Desmond Diaz DO Acute upper respiratory infections of unspecified site Hypertension 401.9 Active Rober Rodríguez DRIVER SERVICE TECHNICIAN Unspecified essential hypertension Sinusitis - acute 461.9 [...] Hypogonadism, low testosterone 257.2 Active Erin Mai DRIVER SERVICE TECHNICIAN Other testicular hypofunction Low back pain, chronic [...] unspecified site Sinusitis ICD-461.9 Inactive 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 [employer]LLOFF TRUCK DRIVER 2017 Low back pain, acute ICD-724.2 Inactive 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 [employer] TRUCK DRIVER Low back pain, chronic ICD-724.2 Inactive 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 [employer] TRUCK DRIVER Bronchitis, acute ICD-466.0 Inactive 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 [employer]OFF TRUCK DRIVER Onychomycosis, toenails ICD-110.1 Inactive 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 [employer]OFF TRUCK DRIVER Dizziness ICD-780.4 Inactive 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 [employer]LLOFF TRUCK DRIVER 2017 Folliculitis ICD-704.8 Inactive 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 [employer]OFF TRUCK DRIVER Pharyngitis-Acute ICD-462 Inactive 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 [employer]OFF TRUCK DRIVER Fatigue ICD-780.79 Inactive 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 ROLLOFF TRUCK DRIVER 09/20 Hypertension, secondary, malignant ICD-405.09 Inactive 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 ROLLOFF TRUCK DRIVER Insect bite, infected ICD-919.5 Inactive 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 ROLLOFF TRUCK DRIVER Abscess, skin ICD-682.9 Inactive 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 ROLLOFF TRUCK DRIVER URI ICD-465.9 Inactive 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 ROLLOFF TRUCK DRIVER Sinusitis - acute ICD-461.9 Inactive 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 RO[employer]OFF TRUCK DRIVER Acute confusion ICD-293.0 Inactive 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 [employer]OFF TRUCK DRIVER Headache ICD-784.0 Inactive 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 [employer]OFF TRUCK DRIVER 09/20 Back pain ICD-724.5 Inactive 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 ROLLOFF TRUCK DRIVER 2017 Rib pain, right sided ICD-786.50 Inactive 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 RO[employer]OFF TRUCK DRIVER Myalgias ICD-729.1 Inactive 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 ROLLOFF TRUCK DRIVER 09/20 URI ICD-465.9 Inactive 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 ROLLOFF TRUCK DRIVER Bronchitis-Acute ICD-466.0 Inactive Desmond Diaz DO Medication List Medication Instructions Start Date Stop Date Generic Name NDC Status Provider Patient Instruction PREDNISONE 20 MG ORAL TABLET 2 po qd x 5 days PREDNISONE 36279873192 Active Renny Bella MD Active PROMETHAZINE-CODEINE 6.25-10 MG/5ML ORAL SYRUP 5ml po q6hr PRN Cough PROMETHAZINE-CODEINE 32615434101 Active Renny Bella MD Active MONTELUKAST SODIUM 10 MG ORAL TABLET 1 tab po daily for allergies MONTELUKAST SODIUM 73443501597 Active JONATHAN Moncada Active IMDUR 60 MG ORAL TABLET EXTENDED RELEASE 24 HOUR 1 po q day ISOSORBIDE MONONITRATE 82984344291 Active Emma Hernandez Active METOPROLOL SUCCINATE ER 200 MG ORAL TABLET EXTENDED RELEASE 24 HOUR take 1 tab po qday for high blood pressure and rapid pulse METOPROLOL SUCCINATE 63745960853 Active Robbie Busby MD Active GOAMHOPI-AGC-8 0.3 MG/24HR TRANSDERMAL PATCH WEEKLY apply 2 patches q week for HTN CLONIDINE HCL 09057894603 No Longer Active Robbie Busby MD Active IMDUR 60 MG ORAL TABLET EXTENDED RELEASE 24 HOUR take 1 tab po qday for blood pressure ISOSORBIDE MONONITRATE 40953484559 No Longer Active Robbie Busby MD Active TEMAZEPAM 15 MG ORAL CAPSULE 1 TAB PO Q HS TEMAZEPAM 08610971332 No Longer Active Robbie Busby MD Active TOPIRAMATE 50 MG ORAL TABLET 1 po BID for migraines TOPIRAMATE 35493882702 No Longer Active Robbie Busby MD Active CYCLOBENZAPRINE HCL 10 MG ORAL TABLET 1 tablet by mouth three times daily as needed for muscle spasm/pain CYCLOBENZAPRINE HCL 51868732136 No Longer Active Robbie Busby MD Active TOPROL XL 200 MG ORAL TABLET EXTENDED RELEASE 24 HOUR Take one by mouth daily METOPROLOL SUCCINATE 22782601868 No Longer Active Robbie Busby MD Active METFORMIN HCL 500 MG ORAL TABLET 1 tablet by mouth daily for diabetes type 2 METFORMIN HCL 81291459749 Active Robbie Busby MD Active SINGULAIR 10 MG ORAL TABLET 1 po qday for allergies. MONTELUKAST SODIUM 38755607168 No Longer Active Robbie Busby MD Active PREDNISONE 20 MG ORAL TABLET two tabs by mouth today, then one tab by mouth days two and three PREDNISONE 42622927115 No Longer Active Robbie Busby MD Active AZITHROMYCIN 250 MG ORAL TABLET 2 po qd x 1 day, then 1 po qd x 4 days 09/20 AZITHROMYCIN 74136857854 No Longer Active Desmond Diaz DO Active TOPIRAMATE 50 MG ORAL TABLET take 1 tab po BID for migraines. TOPIRAMATE 88389723088 No Longer Active Desmond Diaz DO Active CYCLOBENZAPRINE HCL 10 MG ORAL TABLET 1 po TID PRN muscle spasm/pain for 10 days CYCLOBENZAPRINE HCL 53059820652 No Longer Active Desmond Diaz DO Active GUAIFENESIN ER 600 MG ORAL TABLET EXTENDED RELEASE 12 HOUR 1 tab po q am 2016 GUAIFENESIN 49937307422 No Longer Active Robbie Busby MD Active DIVALPROEX SODIUM ER 500 MG ORAL TABLET EXTENDED RELEASE 24 HOUR Once daily DIVALPROEX SODIUM 05130263166 Active Robbie Busby MD Active DEPO-TESTOSTERONE 200 MG/ML INTRAMUSCULAR SOLUTION 1 IM Injections every 2 weeks for low testosterone TESTOSTERONE CYPIONATE 83596048818 Active Zulema Blank LPN Active FLUTICASONE PROPIONATE 50 MCG/ACT NASAL SUSPENSION 2 sprays per nostril bid for 1 week, then 1 spray bid FLUTICASONE PROPIONATE 41545490455 Active Jishantel Rodríguez APRN Active HYDRALAZINE HCL 25 MG ORAL TABLET Take 1 tab BID. HYDRALAZINE HCL 10170781419 Active Jillina Franeha ARGUELLO Active VITAMIN D3 79154 UNIT ORAL TABLET 2 po weekly CHOLECALCIFEROL 85770280314 Active Robbie Busby MD Active OXYCODONE HCL ER 10 MG ORAL TABLET ER 12 HOUR ABUSE-DETERRENT 1 tab po 3 times qd. OXYCODONE HCL 16122493905 Active Robbie Busby MD Active NITROSTAT 0.4 MG SUBLINGUAL TABLET SUBLINGUAL PRN NITROGLYCERIN 26293860622 No Longer Active Robbie Busby MD Active LORATADINE 10 MG ORAL TABLET 1 tablet by mouth daily for congestion and allergies. LORATADINE 69021751770 No Longer Active Robbie Busby MD Active FLONASE 50 MCG/ACT NASAL SUSPENSION 1 spray each nostril twice daily for allergies and runny nose FLUTICASONE PROPIONATE 47332654435 No Longer Active Robbie Busby MD Active FIORICET 50-300-40 MG ORAL CAPSULE take 1 tab po qday prn migraines. [id number] 69059485844 No Longer Active Robbie Busby MD Active VITAMIN D3 95172 UNIT ORAL CAPSULE 2 CAPS PO WEEKLY CHOLECALCIFEROL 54338744005 No Longer Active Robbie Busby MD Active CYCLOBENZAPRINE HCL 10 MG ORAL TABLET 1 tablet by mouth three times daily as needed for muscle spasm/pain for 10 days CYCLOBENZAPRINE HCL 46129724170 No Longer Active Robbie Busby MD Active PREDNISONE 20 MG ORAL TABLET take 3 tabs daily for 3 days, 2 tabs daily for 3 days, 1 tab daily for 3 days, 1/2 tab daily for 4 days PREDNISONE 64081974268 No Longer Active Erin Arezane GONZALEZN Active CLONIDINE HCL 0.2 MG ORAL TABLET 1 TAB BY MOUTH EVERY 8 HOURS CLONIDINE HCL 29893226403 No Longer Active Erin Arell DRIVER SERVICE TECHNICIAN Active MECLIZINE HCL 25 MG ORAL TABLET one 4 times a day as needed for dizziness MECLIZINE HCL 06843774972 No Longer Active Erin Arell DRIVER SERVICE TECHNICIAN Active SPIRONOLACTONE 25 MG ORAL TABLET 4 tablets by mouth daily SPIRONOLACTONE 38859100170 No Longer Active Erin Arell DRIVER SERVICE TECHNICIAN Active LEVAQUIN 500 MG ORAL TABLET 1 tablet by mouth daily for 7 days LEVOFLOXACIN 86121985053 No Longer Active Erin Arell DRIVER SERVICE TECHNICIAN Active BACTRIM DS 800-160 MG ORAL TABLET 1 tab by mouth twice daily 2015 TRIMETHOPRIM-SULFAMETHOXAZOLE 46548718138 No Longer Active Robbie Busby MD Active HYDRALAZINE HCL 50 MG ORAL TABLET TWO BY MOUTH THREE TIMES DAILY HYDRALAZINE HCL 84283522094 No Longer Active Rober Rodríguez APRN Active HYDROCODONE-ACETAMINOPHEN 5-325 MG ORAL TABLET 1 tab by mouth BID prn back pain HYDROCODONE-ACETAMINOPHEN 38129616114 No Longer Active Rober Rodríguez APRN Active HYDROCHLOROTHIAZIDE TABLET Take one by mouth daily HYDROCHLOROTHIAZIDE TABS 24504199562 No Longer Active 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 DRIVER SERVICE TECHNICIAN Active LAMISIL 125 MG ORAL PACKET 1 TAB PO DAILY TERBINAFINE HCL 76558593955 No Longer Active 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 DRIVER SERVICE TECHNICIAN Active TRILEPTAL 150 MG ORAL TABLET 1 TAB PO Q HS OXCARBAZEPINE 22945621538 No Longer Active 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 DRIVER SERVICE TECHNICIAN Active BETADINE 10 % EXTERNAL SOLUTION 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 07/29 POVIDONE-IODINE 60534705758 No Longer Active 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 DRIVER SERVICE TECHNICIAN Active NYSTATIN 456491 UNIT/ML MOUTH/THROAT SUSPENSION 5mL po QID x 10 days NYSTATIN 82719502294 No Longer Active Erin Mai APRN Active PREDNISONE 20 MG ORAL TABLET 1 tablet twice daily for 2 days, then 1 tablet once daily for 2 days PREDNISONE 26039500950 No Longer Active Robbie Busby MD Active CEFDINIR 300 MG ORAL CAPSULE Take 1 cap po bid x 10 days CEFDINIR 10857400870 No Longer Active Robbie Busyb MD Active AMLODIPINE BESYLATE 10 MG ORAL TABLET 1 tablet by mouth daily AMLODIPINE BESYLATE 52614397116 Active Robbie Busby MD Active CARVEDILOL 25 MG ORAL TABLET 1 & 1/2 TAB po BID CARVEDILOL 92214787184 Active Robbie Busby MD Active NEXIUM 40 MG ORAL CAPSULE DELAYED RELEASE 1 cap by mouth daily ESOMEPRAZOLE MAGNESIUM 19496560899 Active Robbie Busby MD Active PROTONIX 40 MG INTRAVENOUS SOLUTION RECONSTITUTED 1 po qday for acid reflux PANTOPRAZOLE SODIUM 23310761840 No Longer Active Gali Raida Active KEFLEX 500 MG ORAL CAPSULE 1 po TID x 10 days CEPHALEXIN 18056974879 No Longer Active Robbie Busby MD Active ALPRAZOLAM 2 MG ORAL TABLET 1 TAB PO BID ALPRAZOLAM 36241414220 Active Robbie Busby MD Active FENOFIBRATE 145 MG ORAL TABLET Take one by mouth daily FENOFIBRATE 81214834713 No Longer Active Robbie Busby MD Active SPIRONOLACTONE 50 MG ORAL TABLET 1 tablet by mouth twice a day SPIRONOLACTONE 82256544384 No Longer Active Robbie Busby MD Active HYDRALAZINE HCL 25 MG ORAL TABLET 1 tablet by mouth tid for hypertension 2013 HYDRALAZINE HCL 90604718439 No Longer Active Robbie Busby MD Active VIIBRYD 40 MG ORAL TABLET take 1 tab po qday for depression. 2014 VILAZODONE HCL 23133951205 No Longer Active Robbie Busby MD Active TERBINAFINE HCL 250 MG ORAL TABLET 1 tab po qday for foot infection TERBINAFINE HCL 10245617201 No Longer Active Robbie Busby MD Active GABAPENTIN 300 MG ORAL CAPSULE 1 po q hs for nerve pain GABAPENTIN 80713155327 Active Robbie Busby MD Active CHERATUSSIN AC 100-10 MG/5ML ORAL SOLUTION 7.5 mL PO q 4-6 hrs PRN cough 2014 GUAIFENESIN-CODEINE 34668535784 No Longer Active Robbie Busby MD Active AZITHROMYCIN 250 MG ORAL TABLET 2 tablets PO today---then, 1 tablet PO daily x 4 more days (and 1 optional refill) AZITHROMYCIN 77504282649 No Longer Active Robbie Busby MD Active NORVASC 10 MG ORAL TABLET 1 tablet by mouth daily AMLODIPINE BESYLATE 22098068192 No Longer Active Alex ALVAREZ Active ISOSORBIDE DINITRATE 30 MG ORAL TABLET Take one by mouth daily ISOSORBIDE DINITRATE 85982523317 No Longer Active Robbie Busby MD Active VIIBRYD 40 MG ORAL TABLET 1 TA B PO DAILY VILAZODONE HCL 42432297794 Active Robbie Busby MD Active ZITHROMAX 250 MG ORAL TABLET 2 po today, then 1 po q days 2-5 AZITHROMYCIN 20198158920 No Longer Active Robbie Busby MD Active DOXAZOSIN MESYLATE 4 MG ORAL TABLET Take one by mouth daily DOXAZOSIN MESYLATE 10847720569 Active Robbie Busby MD Active VENLAFAXINE HCL ER 150 MG ORAL TABLET EXTENDED RELEASE 24 HOUR Take one by mouth daily VENLAFAXINE HCL 53822257226 Active Robbie Busby MD Active LIPITOR 40 MG ORAL TABLET Take one by mouth daily ATORVASTATIN CALCIUM 74626575877 Active Robbie Busby MD Active ISOSORBIDE DINITRATE 30 MG ORAL TABLET Take one by mouth daily ISOSORBIDE DINITRATE 30 MG ORAL TABLET 864714 ISOSORBIDE DINITRATE Inactive NORVASC 10 MG ORAL TABLET 1 tablet by mouth daily NORVASC 10 MG ORAL TABLET 027953 AMLODIPINE BESYLATE Inactive AZITHROMYCIN 250 MG ORAL TABLET 2 tablets PO today---then, 1 tablet PO daily x 4 more days (and 1 optional refill) AZITHROMYCIN 250 MG ORAL TABLET 099310 AZITHROMYCIN Inactive CHERATUSSIN AC 100-10 MG/5ML ORAL SOLUTION 7.5 mL PO q 4-6 hrs PRN cough 2014 CHERATUSSIN AC 100-10 MG/5ML ORAL SOLUTION 753199 GUAIFENESIN-CODEINE Inactive VIIBRYD 40 MG ORAL TABLET take 1 tab po qday for depression. 2014 VIIBRYD 40 MG ORAL TABLET VILAZODONE HCL Inactive HYDRALAZINE HCL 25 MG ORAL TABLET 1 tablet by mouth tid for hypertension 2013 HYDRALAZINE HCL 25 MG ORAL TABLET 642385 HYDRALAZINE HCL Inactive SPIRONOLACTONE 50 MG ORAL TABLET 1 tablet by mouth twice a day SPIRONOLACTONE 50 MG ORAL TABLET 674059 SPIRONOLACTONE Inactive FENOFIBRATE 145 MG ORAL TABLET Take one by mouth daily FENOFIBRATE 145 MG ORAL TABLET 019758 FENOFIBRATE Inactive PROTONIX 40 MG INTRAVENOUS SOLUTION RECONSTITUTED 1 po qday for acid reflux PROTONIX 40 MG INTRAVENOUS SOLUTION RECONSTITUTED 707539 PANTOPRAZOLE SODIUM Inactive CEFDINIR 300 MG ORAL CAPSULE Take 1 cap po bid x 10 days CEFDINIR 300 MG ORAL CAPSULE 497292 CEFDINIR Inactive PREDNISONE 20 MG ORAL TABLET 1 tablet twice daily for 2 days, then 1 tablet once daily for 2 days PREDNISONE 20 MG ORAL TABLET 882288 PREDNISONE Inactive NYSTATIN 478523 UNIT/ML MOUTH/THROAT SUSPENSION 5mL po QID x 10 days NYSTATIN 093472 UNIT/ML MOUTH/THROAT SUSPENSION 201952 NYSTATIN Inactive BETADINE 10 % EXTERNAL SOLUTION 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 07/29 BETADINE 10 % EXTERNAL SOLUTION 8809701 POVIDONE-IODINE Inactive TRILEPTAL 150 MG ORAL TABLET 1 TAB PO Q HS TRILEPTAL 150 MG ORAL TABLET 906446 OXCARBAZEPINE Inactive LAMISIL 125 MG ORAL PACKET 1 TAB PO DAILY LAMISIL 125 MG ORAL PACKET TERBINAFINE HCL Inactive HYDROCHLOROTHIAZIDE TABLET Take one by mouth daily HYDROCHLOROTHIAZIDE TABLET HYDROCHLOROTHIAZIDE TABS Inactive HYDROCODONE-ACETAMINOPHEN 5-325 MG ORAL TABLET 1 tab by mouth BID prn back pain HYDROCODONE-ACETAMINOPHEN 5-325 MG ORAL TABLET 896686 HYDROCODONE-ACETAMINOPHEN Inactive HYDRALAZINE HCL 50 MG ORAL TABLET TWO BY MOUTH THREE TIMES DAILY HYDRALAZINE HCL 50 MG ORAL TABLET 829242 HYDRALAZINE HCL Inactive LEVAQUIN 500 MG ORAL TABLET 1 tablet by mouth daily for 7 days LEVAQUIN 500 MG ORAL TABLET 791776 LEVOFLOXACIN Inactive SPIRONOLACTONE 25 MG ORAL TABLET 4 tablets by mouth daily SPIRONOLACTONE 25 MG ORAL TABLET 150515 SPIRONOLACTONE Inactive MECLIZINE HCL 25 MG ORAL TABLET one 4 times a day as needed for dizziness MECLIZINE HCL 25 MG ORAL TABLET 578373 MECLIZINE HCL Inactive CLONIDINE HCL 0.2 MG ORAL TABLET 1 TAB BY MOUTH EVERY 8 HOURS CLONIDINE HCL 0.2 MG ORAL TABLET 728558 CLONIDINE HCL Inactive CYCLOBENZAPRINE HCL 10 MG ORAL TABLET 1 tablet by mouth three times daily as needed for muscle spasm/pain for 10 days CYCLOBENZAPRINE HCL 10 MG ORAL TABLET 274598 CYCLOBENZAPRINE HCL Inactive VITAMIN D3 19862 UNIT ORAL CAPSULE 2 CAPS PO WEEKLY VITAMIN D3 51247 UNIT ORAL CAPSULE CHOLECALCIFEROL Inactive FIORICET 50-300-40 MG ORAL CAPSULE take 1 tab po qday prn migraines. FIORICET 50-300-40 MG ORAL CAPSULE 974275 BUTALBITAL-APAP- CAFFEINE Inactive FLONASE 50 MCG/ACT NASAL SUSPENSION 1 spray each nostril twice daily for allergies and runny nose FLONASE 50 MCG/ACT NASAL SUSPENSION 9205354 FLUTICASONE PROPIONATE Inactive LORATADINE 10 MG ORAL TABLET 1 tablet by mouth daily for congestion and allergies. LORATADINE 10 MG ORAL TABLET 194068 LORATADINE Inactive NITROSTAT 0.4 MG SUBLINGUAL TABLET SUBLINGUAL PRN NITROSTAT 0.4 MG SUBLINGUAL TABLET SUBLINGUAL 225406 NITROGLYCERIN Inactive GUAIFENESIN ER 600 MG ORAL TABLET EXTENDED RELEASE 12 HOUR 1 tab po q am 2016 GUAIFENESIN ER 600 MG ORAL TABLET EXTENDED RELEASE 12 HOUR GUAIFENESIN Inactive CYCLOBENZAPRINE HCL 10 MG ORAL TABLET 1 po TID PRN muscle spasm/pain for 10 days CYCLOBENZAPRINE HCL 10 MG ORAL TABLET 698557 CYCLOBENZAPRINE HCL Inactive TOPIRAMATE 50 MG ORAL TABLET take 1 tab po BID for migraines. TOPIRAMATE 50 MG ORAL TABLET 885600 TOPIRAMATE Inactive PREDNISONE 20 MG ORAL TABLET two tabs by mouth today, then one tab by mouth days two and three PREDNISONE 20 MG ORAL TABLET 222645 PREDNISONE Inactive TOPROL XL 200 MG ORAL TABLET EXTENDED RELEASE 24 HOUR Take one by mouth daily TOPROL XL 200 MG ORAL TABLET EXTENDED RELEASE 24 HOUR METOPROLOL SUCCINATE Inactive CYCLOBENZAPRINE HCL 10 MG ORAL TABLET 1 tablet by mouth three times daily as needed for muscle spasm/pain CYCLOBENZAPRINE HCL 10 MG ORAL TABLET 779772 CYCLOBENZAPRINE HCL Inactive TOPIRAMATE 50 MG ORAL TABLET 1 po BID for migraines TOPIRAMATE 50 MG ORAL TABLET 307433 TOPIRAMATE Inactive TEMAZEPAM 15 MG ORAL CAPSULE 1 TAB PO Q HS TEMAZEPAM 15 MG ORAL CAPSULE 270689 TEMAZEPAM Inactive IMDUR 60 MG ORAL TABLET EXTENDED RELEASE 24 HOUR take 1 tab po qday for blood pressure IMDUR 60 MG ORAL TABLET EXTENDED RELEASE 24 HOUR ISOSORBIDE MONONITRATE Inactive [id number] 0.3 MG/24HR TRANSDERMAL PATCH WEEKLY apply 2 patches q week for HTN [id number] 0.3 MG/24HR TRANSDERMAL PATCH WEEKLY 034301 CLONIDINE HCL Inactive ZITHROMAX 250 MG ORAL TABLET 2 po today, then 1 po q days 2-5 ZITHROMAX 250 MG ORAL TABLET 999172 AZITHROMYCIN Inactive TERBINAFINE HCL 250 MG ORAL TABLET 1 tab po qday for foot infection TERBINAFINE HCL 250 MG ORAL TABLET 152860 TERBINAFINE HCL Inactive KEFLEX 500 MG ORAL CAPSULE 1 po TID x 10 days KEFLEX 500 MG ORAL CAPSULE 336562 CEPHALEXIN Inactive BACTRIM DS 800-160 MG ORAL TABLET 1 tab by mouth twice daily 2015 BACTRIM DS 800-160 MG ORAL TABLET 559514 TRIMETHOPRIM- SULFAMETHOXAZOLE Inactive PREDNISONE 20 MG ORAL TABLET take 3 tabs daily for 3 days, 2 tabs daily for 3 days, 1 tab daily for 3 days, 1/2 tab daily for 4 days PREDNISONE 20 MG ORAL TABLET 145791 PREDNISONE Inactive AZITHROMYCIN 250 MG ORAL TABLET 2 po qd x 1 day, then 1 po qd x 4 days 09/20 AZITHROMYCIN 250 MG ORAL TABLET 096183 AZITHROMYCIN Inactive SINGULAIR 10 MG ORAL TABLET 1 po qday for allergies. SINGULAIR 10 MG ORAL TABLET 686095 MONTELUKAST SODIUM Inactive Advance Directives Directive Description [...] temperature weight E&M 219 [lb_av] Weight Measured Diagnostic Results Date Name Value Unit Range Description Lab Report: CBC W/DIFF, Comp. Metabolic Panel, CKI, UADIP W/MICRO, AUTO - Chemistry sodium, serum 142 mmol/L 989-692 8179/07/17 carbon dioxide, venous blood 28.2 mmol/L 21.0-32.0 [...] Panel - Chemistry sodium, serum 141 mmol/L 333-133 1776/02/13 carbon dioxide, venous blood 23.9 mmol/L 21.0-32.0 [...] 6.9 % 4.3-6.0 sodium, serum 139 mmol/L 336-647 6131/01/04 potassium, serum 3.9 mmol/L 3.5-5.2 chloride, serum [...] 1.80 ng/mL 0.00-4.00 Lab Report: VITAMIN D, 25-HYDROXY/40984 - Chemistry vitamin D 25-hydroxy, serum 25 ng/mL 30-100 Encounters Code Encounter Date Provider Facility CPT-93900 Level 3 Est. Patient 13:59:07 CDT Renny Bella MD [facility] CPT-48129 Level 3 Est. Patient 16:04:17 CDT Robbie Busby MD [facility] CPT-33896 Level 4 Est. Patient 09:50:01 CLINICAL EDUCATION COORDINATOR Robbie Busby MD [facility]-03629 Level 4 Est. Patient 09:42:08 CLINICAL EDUCATION COORDINATOR Robbie Busby MD [facility] CPT-69383 Level 4 Est. Patient 13:07:39 CLINICAL EDUCATION COORDINATOR Robbie Busby MD [facility] CPT-98292 Level 4 Est. Patient 15:23:44 CLINICAL EDUCATION COORDINATOR Desmond Diaz DO [facility] CPT-88714 Level 3 Est. Patient 15:40:49 CDT Robbie Busby MD [facility] CPT-82729 Level 4 Est. Patient 15:18:19 CDT Robbie Busby MD [facility] CPT-63412 Level 3 Est. Patient 09:00:37 CDT Rober Rodríguez [facility] [place] CPT-19123 Level 3 Est. Patient 16:07:10 CDT Robbie Busby MD [facility] CPT-60363 Level 4 Est. Patient 11:56:16 CDT Erin Mai [facility] [place] [facility] [place] CPT-93223 Level 3 Est. Patient 17:48:02 CDT Robbie Busby MD [facility] CPT-25905 Level 4 Est. Patient 12:00:49 CLINICAL EDUCATION COORDINATOR Rober Rodríguez [facility] [place] [facility] [place] CPT-58449 Level 3 Est. Patient 09:16:37 CDT Robbie Busby MD [facility] CPT-87787 Level 3 Est. Patient 19:38:43 CDT Robbie Busby MD [facility] CPT-07596 Level 3 Est. Patient 11:53:38 CDT Robbie Busby MD [facility]-08899 Level 4 Est. Patient 12:52:22 CDT Rober Rodríguez APRN [facility] CPT-68891 Level 4 Est. Patient 22:55:17 CDT Robbie Busby MD [facility]-29052 Level 3 Est. Patient 12:38:24 CDT Desmond Diaz DO [facility] CPT-16639 Level 4 Est. Patient 11:25:03 CLINICAL EDUCATION COORDINATOR Robbie Busby MD [facility] [place]-72172 Level 4 Est. Patient 14:50:10 CDT Robbie Busby MD [facility] CPT-14153 Level 4 Est. Patient 23:30:43 CDT Robbie Busby MD [facility] CPT-59702 Level 4 Est. Patient 10:30:43 CDT Robbie Busby MD [facility] CPT-29102 Level 3 Est. Patient 17:08:12 CDT Alex ALVAREZ [facility] CPT-21554 Level 4 Est. Patient 17:51:38 CDT Robbie Busby MD [facility] CPT-38814 Level 4 Est. Patient 14:00:21 CDT Robbie Busby MD [facility] CPT-01714 Level 4 Est. Patient 12:46:48 CDT Robbie Busby MD [facility] [place]-94701 Level 4 Est. Patient 13:34:33 CDT Robbie Busby MD [facility] CPT-81354 Level 4 Est. Patient 16:58:28 CDT Robbie Busby MD [facility] CPT-68139 Level 3 Est. Patient 19:36:53 CDT Alex ALVAREZ [facility] CPT-95364 Level 3 Est. Patient 12:58:15 CDT Robbie Busby MD [facility] Procedures Code Procedure Name Date Entry Date Standard Description CPT-J1071 Depo Testosterone 200mg 09:01:06 CDT CPT-34063 Abx/Therapy Injection 09:01:06 CDT CPT-J1100 Decadron 8mg (Dexamethasone) 16:04:17 CDT CPT-J1040 Depo Medrol 80 mg (Methyl Prednisolone Acetate) 16:04: 17 CDT CPT-J1071 Depo Testosterone 200mg 08:56:46 CDT CPT-60002 Abx/Therapy Injection 08:56:45 CDT CPT-J1071 Depo Testosterone 200mg 08:26:27 CDT CPT-90339 Abx/Therapy Injection 08:26:27 CDT CPT-J1071 Depo Testosterone 200mg 10:27:10 CDT CPT-54369 Abx/Therapy Injection 10:27:10 CDT CPT-J1071 Depo Testosterone 200mg 16:10:29 CLINICAL EDUCATION COORDINATOR CPT-36333 Abx/Therapy Injection 16:10:29 CLINICAL EDUCATION COORDINATOR CPT-J1071 Depo Testosterone 200mg 16:13:47 CLINICAL EDUCATION COORDINATOR CPT-90514 Abx/Therapy Injection 16:13:46 CLINICAL EDUCATION COORDINATOR CPT-J1071 Depo Testosterone 200mg 15:33:58 CLINICAL EDUCATION COORDINATOR CPT-41571 Abx/Therapy Injection 15:33:58 CLINICAL EDUCATION COORDINATOR CPT-J1071 Depo Testosterone 200mg 09:38:36 CLINICAL EDUCATION COORDINATOR CPT-26109 Abx/Therapy Injection 09:38:36 CLINICAL EDUCATION COORDINATOR CPT-J1071 Depo Testosterone 200mg 10:22:56 CLINICAL EDUCATION COORDINATOR CPT-79624 Abx/Therapy Injection 10:22:56 CLINICAL EDUCATION COORDINATOR CPT-J1071 Depo Testosterone 200mg 15:40:23 CDT CPT-76569 Abx/Therapy Injection 15:40:23 CDT CPT-J1071 Depo Testosterone 200mg 14:20:43 CDT CPT-10972 Abx/Therapy Injection 14:20:43 CDT CPT-J1071 Depo Testosterone 200mg 14:17:22 CDT CPT-00348 Abx/Therapy Injection 14:17:22 CDT CPT-J1071 Depo Testosterone 200mg 09:03:53 CDT CPT-06482 Abx/Therapy Injection 09:03:53 CDT CPT-G0439 [facility] Annual Wellness Exam 16:47:44 CDT CPT-J1071 Depo Testosterone 200mg 09:06:28 CDT CPT-12997 Abx/Therapy Injection 09:06:28 CDT CPT-J1071 Depo Testosterone 200mg 08:30:01 CDT CPT-70269 Abx/Therapy Injection 08:30:01 CDT CPT-J1071 Depo Testosterone 200mg 08:24:00 CDT CPT-08280 Abx/Therapy Injection 08:24:00 CDT CPT-14435 Venipuncture Draw Fee 14:39:06 CDT CPT-15242 Ribs unilateral 2V - XRAY USE ONLY 12:10:11 CDT CPT-63349 First Vx - Ix admin for Medicare patients 16:32:53 CDT CPT-61874 Boostrix Intramuscular Suspension 5-2.5-18.5 16:32:53 CDT CPT-09943 TB Skin Test 11:42:28 CDT CPT-40006 Tdap 7yrs or > 11:42:28 CDT CPT-J0696 Rocephin 1000 mg (Ceftriaxone) 17:43:43 CLINICAL EDUCATION COORDINATOR CPT-J1040 Depo Medrol 80 mg (Methyl Prednisolone Acetate) 17:43: 43 CLINICAL EDUCATION COORDINATOR CPT-J1100 Decadron 8mg (Dexamethasone) 17:43:42 CLINICAL EDUCATION COORDINATOR CPT-46663 Abx/Therapy Injection 17:43:42 CLINICAL EDUCATION COORDINATOR CPT-30722 Abx/Therapy Injection 17:43:42 CLINICAL EDUCATION COORDINATOR CPT-J1040 Depo Medrol 80 mg (Methyl Prednisolone Acetate) 09:43: 34 CLINICAL EDUCATION COORDINATOR CPT-J1100 Decadron 8mg (Dexamethasone) 09:43:34 CLINICAL EDUCATION COORDINATOR CPT-J0696 Rocephin 1gm Inj Solr 09:43:34 CLINICAL EDUCATION COORDINATOR CPT-50974 Wound Culture - LAB USE ONLY 14:00:21 CDT CPT-I/D I/D Abscess 09:16:37 CDT CPT-11821 Venipuncture Draw Fee 15:20:23 CDT CPT-23634 Microalbumin - LAB USE ONLY 16:02:19 CDT CPT-20970 CBC - LAB USE ONLY 16:02:19 CDT CPT-47559 Venipuncture Draw Fee 16:02:19 CDT CPT-G0438 Initial Annual Wellness Exam 08:10:28 CDT CPT-89030 Venipuncture Draw Fee 13:07:17 CDT CPT-G0008 Administration of Influenza Virus Vaccine 16:09:59 CDT CPT-49158 Fluzone Quadrivalent Intramuscular Suspension 0.5 ML 16: 09:59 CDT CPT-79962 Spec Collection and Handling Fee 15:05:50 CDT
--- OUTSIDE RECORDS SUMMARY | 2018-04-18 10:36 | XMS REPORT | Clinical Summary ---
Author Author Admin, [facility] Organization [facility] Address Unknown Phone Unavailable Allergies, Adverse [...] Headache 784.0 Active Erin Garsia APRN Headache Medication List Medication Instructions Start Date Stop Date Generic Name NDC Status Provider Patient Instruction CYCLOBENZAPRINE HCL 10 MG TABS 1 tablet by mouth three times daily as needed for muscle spasm/pain for 10 days CYCLOBENZAPRINE HCL 34704087339 Active Erin Garsia APRN Active PREDNISONE 20 MG TAB take 3 tabs daily for 3 days, 2 tabs daily for 3 days, 1 tab daily for 3 days, 1/2 tab daily for 4 days PREDNISONE 04636586724 Active Erin Garsia APRN Active CLONIDINE HCL 0.2 MG ORAL TABS 1 TAB BY MOUTH EVERY 8 HOURS 12/29 CLONIDINE HCL 67472776721 No Longer Active Erin Garsia APRN Active MECLIZINE HCL 25 MG TAB one 4 times a day as needed for dizziness MECLIZINE HCL 82768584992 No Longer Active Erin Garsia APRN Active SPIRONOLACTONE 25 MG TAB 4 tablets by mouth daily SPIRONOLACTONE 90723799465 No Longer Active Erin Garsia APRN Active LEVAQUIN 500 MG TAB 1 tablet by mouth daily for 7 days LEVOFLOXACIN 36380081441 No Longer Active Erin Garsia APRN Active BACTRIM DS 800-160 MG TAB 1 tab by mouth twice daily TRIMETHOPRIM-SULFAMETHOXAZOLE 66279786360 No Longer Active Robbie Busby MD Active HYDRALAZINE HCL 50 MG ORAL TABS TWO BY MOUTH THREE TIMES DAILY HYDRALAZINE HCL 26913662554 No Longer Active 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 CLAIMS ACCOUNT SPECIALIST Active HYDROCODONE-ACETAMINOPHEN 5-325 MG TABS 1 tab by mouth BID prn back pain 2013 HYDROCODONE-ACETAMINOPHEN 60524519824 No Longer Active 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 CLAIMS ACCOUNT SPECIALIST Active HYDROCHLOROTHIAZIDE TABS Take one by mouth daily HYDROCHLOROTHIAZIDE TABS 67051666519 No Longer Active 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 CLAIMS ACCOUNT SPECIALIST Active LAMISIL 125 MG ORAL PACK 1 TAB PO DAILY TERBINAFINE HCL 03487545520 No Longer Active 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 CLAIMS ACCOUNT SPECIALIST Active TRILEPTAL 150 MG ORAL TABS 1 TAB PO Q HS OXCARBAZEPINE 87213782133 No Longer Active 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 CLAIMS ACCOUNT SPECIALIST Active BETADINE 10 % EXT SOLN 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 POVIDONE-IODINE 23669550624 No Longer Active Andrellina Zulemal CLAIMS ACCOUNT SPECIALIST Active NYSTATIN 874209 UNIT/ML M/T SUSP 5mL po QID x 10 days NYSTATIN 27985745841 No Longer Active Erin Garsia APRN Active PREDNISONE 20 MG TAB 1 tablet twice daily for 2 days, then 1 tablet once daily for 2 days PREDNISONE 80358394915 No Longer Active Robbie Busby MD Active CEFDINIR 300 MG ORAL CAPS Take 1 cap po bid x 10 days CEFDINIR 40278657877 No Longer Active Robbie Busby MD Active AMLODIPINE BESYLATE 10 MG TABS 1 tablet by mouth daily AMLODIPINE BESYLATE 19804327177 Active Robbie Busby MD Active CARVEDILOL 25 MG TABS 1 & 1/2 TAB po BID CARVEDILOL 11867054868 Active Erin Garsia APRN Active VITAMIN D3 12982 UNIT CAPS 2 CAPS PO WEEKLY CHOLECALCIFEROL 34058405714 Active Erin Garsia APRN Active NEXIUM 40 MG CPDR 1 cap by mouth daily ESOMEPRAZOLE MAGNESIUM 68147350092 Active Robbie Busby MD Active PROTONIX 40 MG SOLR 1 po qday for acid reflux PANTOPRAZOLE SODIUM 28304892589 No Longer Active Gali Negro Active KEFLEX 500 MG CAP 1 po TID x 10 days CEPHALEXIN 90927125197 No Longer Active Robbie Busby MD Active FIORICET 50-300-40 MG ORAL CAPS take 1 tab po qday prn migraines. [id number] 36015948118 Active Robbie Busby MD Active TOPIRAMATE 50 MG ORAL TABS take 1 tab po BID for migraines. TOPIRAMATE 28459966703 Active Robbie Busby MD Active TEMAZEPAM 15 MG ORAL CAPS 1 TAB PO Q HS TEMAZEPAM 23813594190 Active Robbie Busby MD Active ALPRAZOLAM 2 MG ORAL TABS 1 TAB PO BID ALPRAZOLAM 17272488193 Active Robbie Busby MD Active FENOFIBRATE 145 MG TABS Take one by mouth daily FENOFIBRATE 87326969502 No Longer Active Robbie Busby MD Active SPIRONOLACTONE 50 MG TABS 1 tablet by mouth twice a day SPIRONOLACTONE 39791602162 No Longer Active Robbie Busby MD Active HYDRALAZINE HCL 25 MG TABS 1 tablet by mouth tid for hypertension HYDRALAZINE HCL 30726445178 No Longer Active Robbie Busby MD Active VIIBRYD 40 MG TABS take 1 tab po qday for depression. VILAZODONE HCL 73165271890 No Longer Active Robbie Busby MD Active TERBINAFINE HCL 250 MG TABS 1 tab po qday for foot infection 2014 TERBINAFINE HCL 69235981617 No Longer Active Robbie Busby MD Active GABAPENTIN 300 MG CAPS 1 po q hs for nerve pain GABAPENTIN 96177145879 Active oRbbie Busby MD Active FLONASE 50 MCG/ACT SUSP 1 spray each nostril twice daily for allergies and runny nose FLUTICASONE PROPIONATE 73767294983 Active Robbie Busby MD Active CHERATUSSIN AC 100-10 MG/5ML ORAL SOLN 7.5 mL PO q 4-6 hrs PRN cough GUAIFENESIN-CODEINE 49012343398 No Longer Active Robbie Busby MD Active AZITHROMYCIN 250 MG ORAL TABS 2 tablets PO today---then, 1 tablet PO daily x 4 more days (and 1 optional refill) AZITHROMYCIN 76291736032 No Longer Active Robbie Busby MD Active NORVASC 10 MG TAB 1 tablet by mouth daily AMLODIPINE BESYLATE 42881237772 No Longer Active Alex ALVAREZ Active IMDUR 60 MG TAB CR take 1 tab po qday for blood pressure ISOSORBIDE MONONITRATE Active Robbie Busby MD Active ISOSORBIDE DINITRATE 30 MG TABS Take one by mouth daily ISOSORBIDE DINITRATE 64469406703 No Longer Active Robbie Busby MD Active VIIBRYD 40 MG TABS 1 TA B PO DAILY VILAZODONE HCL 07148797387 Active Robbie Busby MD Active LORATADINE 10 MG TABS 1 tablet by mouth daily for congestion and allergies. LORATADINE 51873293409 Active Robbie Busby MD Active ZITHROMAX 250 MG TAB 2 po today, then 1 po q days 2-5 AZITHROMYCIN 42771734075 No Longer Active Robbie Busby MD Active [id number] 0.3 MG/24HR PTWK apply 2 patches q week for HTN CLONIDINE HCL 79829435913 Active Robbie Busby MD Active NITROSTAT 0.4 MG SUBL PRN NITROGLYCERIN 39813144442 Active Robbie Busby MD Active DOXAZOSIN MESYLATE 4 MG TABS Take one by mouth daily DOXAZOSIN MESYLATE 11094813113 Active Erin Ady CLAIMS ACCOUNT SPECIALIST Active TOPROL XL 200 MG [id number] Take one by mouth daily METOPROLOL SUCCINATE 60387808085 Active Robbie Busby MD Active VENLAFAXINE HCL ER 150 MG [id number] Take one by mouth daily VENLAFAXINE HCL 82273554211 Active Robbie Busby MD Active LIPITOR 40 MG TABS Take one by mouth daily ATORVASTATIN CALCIUM 48147683698 Active Robbie Busby MD Active ISOSORBIDE DINITRATE 30 MG TABS Take one by mouth daily ISOSORBIDE DINITRATE 30 MG TABS 046956 ISOSORBIDE DINITRATE Inactive NORVASC 10 MG TAB 1 tablet by mouth daily NORVASC 10 MG TAB 775309 AMLODIPINE BESYLATE Inactive AZITHROMYCIN 250 MG ORAL TABS 2 tablets PO today---then, 1 tablet PO daily x 4 more days (and 1 optional refill) AZITHROMYCIN 250 MG ORAL TABS 3758263 AZITHROMYCIN Inactive CHERATUSSIN AC 100-10 MG/5ML ORAL SOLN 7.5 mL PO q 4-6 hrs PRN cough CHERATUSSIN AC 100-10 MG/5ML ORAL SOLN 636122 GUAIFENESIN- CODEINE Inactive VIIBRYD 40 MG TABS take 1 tab po qday for depression. VIIBRYD 40 MG TABS VILAZODONE HCL Inactive HYDRALAZINE HCL 25 MG TABS 1 tablet by mouth tid for hypertension HYDRALAZINE HCL 25 MG TABS 425714 HYDRALAZINE HCL Inactive SPIRONOLACTONE 50 MG TABS 1 tablet by mouth twice a day SPIRONOLACTONE 50 MG TABS 891733 SPIRONOLACTONE Inactive FENOFIBRATE 145 MG TABS Take one by mouth daily FENOFIBRATE 145 MG TABS 876550 FENOFIBRATE Inactive PROTONIX 40 MG SOLR 1 po qday for acid reflux PROTONIX 40 MG SOLR 870440 PANTOPRAZOLE SODIUM Inactive CEFDINIR 300 MG ORAL CAPS Take 1 cap po bid x 10 days CEFDINIR 300 MG ORAL CAPS 626243 CEFDINIR Inactive PREDNISONE 20 MG TAB 1 tablet twice daily for 2 days, then 1 tablet once daily for 2 days PREDNISONE 20 MG TAB 263006 PREDNISONE Inactive NYSTATIN 540474 UNIT/ML M/T SUSP 5mL po QID x 10 days NYSTATIN 254460 UNIT/ML M/T SUSP 866802 NYSTATIN Inactive BETADINE 10 % EXT SOLN 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 BETADINE 10 % EXT SOLN 9455199 POVIDONE-IODINE Inactive TRILEPTAL 150 MG ORAL TABS 1 TAB PO Q HS TRILEPTAL 150 MG ORAL TABS 049783 OXCARBAZEPINE Inactive LAMISIL 125 MG ORAL PACK 1 TAB PO DAILY LAMISIL 125 MG ORAL PACK TERBINAFINE HCL Inactive HYDROCHLOROTHIAZIDE TABS Take one by mouth daily HYDROCHLOROTHIAZIDE TABS HYDROCHLOROTHIAZIDE TABS Inactive HYDROCODONE-ACETAMINOPHEN 5-325 MG TABS 1 tab by mouth BID prn back pain 2013 HYDROCODONE-ACETAMINOPHEN 5-325 MG TABS 963060 HYDROCODONE -ACETAMINOPHEN Inactive HYDRALAZINE HCL 50 MG ORAL TABS TWO BY MOUTH THREE TIMES DAILY HYDRALAZINE HCL 50 MG ORAL TABS 403298 HYDRALAZINE HCL Inactive LEVAQUIN 500 MG TAB 1 tablet by mouth daily for 7 days LEVAQUIN 500 MG TAB 253425 LEVOFLOXACIN Inactive SPIRONOLACTONE 25 MG TAB 4 tablets by mouth daily SPIRONOLACTONE 25 MG TAB 269821 SPIRONOLACTONE Inactive MECLIZINE HCL 25 MG TAB one 4 times a day as needed for dizziness MECLIZINE HCL 25 MG TAB 483687 MECLIZINE HCL Inactive CLONIDINE HCL 0.2 MG ORAL TABS 1 TAB BY MOUTH EVERY 8 HOURS 12/29 CLONIDINE HCL 0.2 MG ORAL TABS 370961 CLONIDINE HCL Inactive ZITHROMAX 250 MG TAB 2 po today, then 1 po q days 2-5 ZITHROMAX 250 MG TAB 2075060 AZITHROMYCIN Inactive TERBINAFINE HCL 250 MG TABS 1 tab po qday for foot infection 2014 TERBINAFINE HCL 250 MG TABS 726478 TERBINAFINE HCL Inactive KEFLEX 500 MG CAP 1 po TID x 10 days KEFLEX 500 MG CAP 328013 CEPHALEXIN Inactive BACTRIM DS 800-160 MG TAB 1 tab by mouth twice daily BACTRIM DS 800-160 MG TAB 578709 TRIMETHOPRIM-SULFAMETHOXAZOLE Inactive Advance Directives Directive Description Start Date DISCUSSED WITH PATIENT -- NO DECISION MADE Vital Signs Date Name Value Unit Range Description blood pressure, diastolic - 8462-4 88 mm[Hg] [...] % 11.0-15.0 platelet count 185 THOUSAND/UL 10*3/mm3 199-774 2271/04/14 mean platelet volume 10.9 fL 7.5-12.5 Lab Report: Comp. Metabolic Panel, Uric Acid - Chemistry sodium, serum 139 mmol/L 719-998 6538/04/22 carbon dioxide, venous blood 29.4 mmol/L 21.0-32.0 [...] FREE/866 - Chemistry cholesterol, serum 220 mg/dL 621-953 5508/04/14 HDL cholesterol, serum 30 mg/dL > OR=40 triglyceride, serum, fasting 466 mg/dL <150 LDL cholesterol, serum SEE NOTE mg/dL (calc) mg/dL <130 cholesterol/HDL ratio, serum 7.3 (calc) < OR=5.0 Lab Report: MICROALB/CREAT W/RATIO - Chemistry albumin/creatinine ratio, urine < 30 mg/g mg/g{creat} 0-29 Lab Report: MICROALB/CREAT W/RATIO - Lab microalbumin, urine 80 0-19 Lab Report: VITAMIN D, 25-HYDROXY/47127 - Chemistry vitamin D 25-hydroxy, serum 23 ng/mL 30-100 Encounters Code Encounter Date Provider Facility CPT-65380 Level 4 Est. Patient 12:00:49 GUM ROLLING MACHINE OPERATOR 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 [facility] CPT-40173 Level 3 Est. Patient 09:16:37 CDT Robbie Busby MD [facility]-66402 Level 3 Est. Patient 19:38:43 CDT Robbie Busby MD [facility] CPT-03476 Level 3 Est. Patient 11:53:38 CDT Robbie Busby MD [facility] CPT-03829 Level 4 Est. Patient 12:52:22 CDT Rober Rodríguez [facility] CPT-90687 Level 4 Est. Patient 22:55:17 CDT Robbie Busby MD [facility]-65180 Level 3 Est. Patient 12:38:24 CDT Desmond Diaz DO [facility] CPT-07560 Level 4 Est. Patient 11:25:03 GUM ROLLING MACHINE OPERATOR Robbie Busby MD [facility] CPT-18258 Level 4 Est. Patient 14:50:10 CDT Robbie Busby MD [facility] CPT-49654 Level 4 Est. Patient 23:30:43 CDT Robbie Busby MD [facility] CPT-09936 Level 4 Est. Patient 10:30:43 CDT Robbie Busby MD [facility] CPT-01179 Level 3 Est. Patient 17:08:12 CDT Alex ALVAREZ [facility] CPT-09862 Level 4 Est. Patient 17:51:38 CDT Robbie Busby MD [facility] CPT-22309 Level 4 Est. Patient 14:00:21 CDT Robbie Busby MD [facility] CPT-15493 Level 4 Est. Patient 12:46:48 CDT Robbie Busby MD [facility] CPT-08491 Level 4 Est. Patient 13:34:33 CDT Robbie Busby MD [facility] CPT-94772 Level 4 Est. Patient 16:58:28 CDT Robbie Busby MD [facility] CPT-57983 Level 3 Est. Patient 19:36:53 CDT Alex Dante Colin ALVAREZ [facility] CPT-19216 Level 3 Est. Patient 12:58:15 CDT Robbie Busby MD [facility] Procedures Code Procedure Name Date Entry Date Standard Description CPT-J0696 Rocephin 1000 mg (Ceftriaxone) 17:43:43 GUM ROLLING MACHINE OPERATOR CPT-J1040 Depo Medrol 80 mg (Methyl Prednisolone Acetate) 17:43: 43 GUM ROLLING MACHINE OPERATOR CPT-J1100 Decadron 8mg (Dexamethasone) 17:43:42 GUM ROLLING MACHINE OPERATOR CPT-48246 Abx/Therapy Injection 17:43:42 GUM ROLLING MACHINE OPERATOR CPT-86767 Abx/Therapy Injection 17:43:42 GUM ROLLING MACHINE OPERATOR CPT-J1040 Depo Medrol 80 mg (Methyl Prednisolone Acetate) 09:43: 34 GUM ROLLING MACHINE OPERATOR CPT-J1100 Decadron 8mg (Dexamethasone) 09:43:34 GUM ROLLING MACHINE OPERATOR CPT-J0696 Rocephin 1gm Inj Solr 09:43:34 GUM ROLLING MACHINE OPERATOR CPT-71806 Wound Culture - LAB USE ONLY 14:00:21 CDT CPT-I/D I/D Abscess 09:16:37 CDT CPT-65271 Venipuncture Draw Fee 15:20:23 CDT CPT-22350 Microalbumin - LAB USE ONLY 16:02:19 CDT CPT-18689 CBC - LAB USE ONLY 16:02:19 CDT CPT-70589 Venipuncture Draw Fee 16:02:19 CDT CPT-G0438 Initial Annual Wellness Exam 08:10:28 CDT CPT-73875 Venipuncture Draw Fee 13:07:17 CDT CPT-G0008 Administration of Influenza Virus Vaccine 16:09:59 CDT CPT-30452 Fluzone Quadrivalent Intramuscular Suspension 0.5 ML 16: 09:59 CDT CPT-17030 Spec Collection and Handling Fee 15:05:50 CDT
--- OUTSIDE RECORDS SUMMARY | 2018-04-18 10:37 | XMS REPORT | Clinical Summary ---
Author Author Admin, [facility] Organization [facility] Address Unknown Phone Unavailable Allergies, [...] for allergies and runny nose FLUTICASONE PROPIONATE 86032609983 Active Robbie Busby MD Active CHERATUSSIN AC 100-10 MG/5ML ORAL SOLN 7.5 mL PO q 4-6 hrs PRN cough GUAIFENESIN-CODEINE 83262675496 No Longer Active Robbie Busby MD Active AZITHROMYCIN 250 MG ORAL TABS 2 tablets PO today---then, 1 tablet PO daily x 4 more days (and 1 optional refill) AZITHROMYCIN 99065931651 No Longer Active Robbie Busby MD Active CLONIDINE HCL 0.2 MG ORAL TABS 1 TAB BY MOUTH EVERY 8 HOURS CLONIDINE HCL 83196102630 Active Robbie Busby MD Active HYDROCHLOROTHIAZIDE TABS Take one by mouth daily HYDROCHLOROTHIAZIDE TABS 30001726255 Active Alex ALVAREZ Active NORVASC 10 MG TAB 1 tablet by mouth daily AMLODIPINE BESYLATE 49146018387 No Longer Active Alex ALVAREZ Active PROTONIX 40 MG SOLR 1 po qday for acid reflux PANTOPRAZOLE SODIUM 39796026454 Active Robbie Busby MD Active IMDUR 60 MG TAB CR take 1 tab po qday for blood pressure ISOSORBIDE MONONITRATE Active Robbie Busby MD Active ISOSORBIDE DINITRATE 30 MG TABS Take one by mouth daily ISOSORBIDE DINITRATE 40668670737 No Longer Active Robbie Busby MD Active VIIBRYD 40 MG TABS take 1 tab po qday for depression. VILAZODONE HCL 54344410785 Active Robbie Busby MD Active VIIBRYD 40 MG TABS 1 TA B PO DAILY VILAZODONE HCL 85293408658 Active Robbie Busby MD Active LORATADINE 10 MG TABS 1 tablet by mouth daily for congestion and allergies. LORATADINE 33175405376 Active Robbie Busby MD Active ZITHROMAX 250 MG TAB 2 po today, then 1 po q days 2-5 AZITHROMYCIN 10433294447 No Longer Active Robbie Busby MD Active HYDROCODONE-ACETAMINOPHEN 5-325 MG TABS 1 tab by mouth BID prn back pain 2013 HYDROCODONE-ACETAMINOPHEN 84626068711 Active Robbie Busby MD Active HYDRALAZINE HCL 50 MG TABS take 1 tab po QID for high blood pressure HYDRALAZINE HCL 12041276747 Active Robbie Busby MD Active [id number] 0.3 MG/24HR PTWK apply 2 patches q week for HTN CLONIDINE HCL 27570169812 Active Alexa Meonn MD PhD Active FENOFIBRATE 145 MG TABS Take one by mouth daily FENOFIBRATE 94876223493 Active Robbie Busby MD Active NITROSTAT 0.4 MG SUBL PRN NITROGLYCERIN 04250818554 Active Robbie Busby MD Active DOXAZOSIN MESYLATE 4 MG TABS Take one by mouth daily DOXAZOSIN MESYLATE 63523780920 Active Robbie Busby MD Active HYDRALAZINE HCL 25 MG TABS 1 tablet by mouth tid for hypertension HYDRALAZINE HCL 98408884143 Active Robbie Busby MD Active TOPROL XL 200 MG [id number] Take one by mouth daily METOPROLOL SUCCINATE 36173854651 Active Robbie Busby MD Active SPIRONOLACTONE 50 MG TABS 1 tablet by mouth twice a day SPIRONOLACTONE 74991013542 Active Robbie Busby MD Active VENLAFAXINE HCL ER 150 MG [id number] Take one by mouth daily VENLAFAXINE HCL 29009783379 Active Robbie Busby MD Active LIPITOR 40 MG TABS Take one by mouth daily ATORVASTATIN CALCIUM 03310672283 Active Robbie Busby MD Active ISOSORBIDE DINITRATE 30 MG TABS Take one by mouth daily ISOSORBIDE DINITRATE 30 MG TABS 397061 ISOSORBIDE DINITRATE Inactive NORVASC 10 MG TAB 1 tablet by mouth daily NORVASC 10 MG TAB 709459 AMLODIPINE BESYLATE Inactive AZITHROMYCIN 250 MG ORAL TABS 2 tablets PO today---then, 1 tablet PO daily x 4 more days (and 1 optional refill) AZITHROMYCIN 250 MG ORAL TABS 3614996 AZITHROMYCIN Inactive CHERATUSSIN AC 100-10 MG/5ML ORAL SOLN 7.5 mL PO q 4-6 hrs PRN cough CHERATUSSIN AC 100-10 MG/5ML ORAL SOLN 504756 GUAIFENESIN- CODEINE Inactive ZITHROMAX 250 MG TAB 2 po today, then 1 po q days 2-5 ZITHROMAX 250 MG TAB 5695340 AZITHROMYCIN Inactive Vital Signs Date Name Value [...] 2+ mg/dL Negative sodium, serum 144 mmol/L 091-382 0210/07/07 potassium, serum 3.9 mmol/L 3.5-5.2 chloride, serum [...] Panel - Chemistry sodium, serum 141 mmol/L 858-893 6939/12/05 potassium, serum 4.0 mmol/L 3.5-5.2 chloride, serum [...] mg/dL Encounters Code Encounter Date Provider Facility CPT-23990 Level 4 Est. Patient 10:30:43 CDT Robbie Busby MD [facility] CPT-59706 Level 3 Est. Patient 17:08:12 CDT Alex Shaw [facility] CPT-58443 Level 4 Est. Patient 17:51:38 CDT Robbie Busby MD [facility] CPT-49007 Level 4 Est. Patient 14:00:21 CDT Robbie Busby MD [facility] CPT-90102 Level 4 Est. Patient 12:46:48 CDT Robbie Busby MD [facility] CPT-72793 Level 4 Est. Patient 13:34:33 CDT Robbie Busby MD [facility] CPT-66306 Level 4 Est. Patient 16:58:28 CDT Robbie Busby MD [facility] CPT-60040 Level 3 Est. Patient 19:36:[address] [facility] CPT-77148 Level 3 Est. Patient 12:58:15 CDT Robbie Busby MD [facility] Procedures Code Procedure Name Date Entry Date Standard Description CPT-G0008 Administration of Influenza Virus Vaccine 16:09:59 CDT CPT-15537 Fluzone Quadrivalent Intramuscular Suspension 0.5 ML 16: 09:59 CDT CPT-75891 Spec Collection and Handling Fee 15:05:50 CDT
--- OUTSIDE RECORDS SUMMARY | 2018-04-18 10:37 | XMS REPORT | Clinical Summary ---
Author Author Admin, [facility] Organization [facility] Address Unknown Phone Unavailable Allergies, Adverse [...] 1 tab by mouth twice daily TRIMETHOPRIM-SULFAMETHOXAZOLE 47894116846 No Longer Active Robbie Busby MD Active SPIRONOLACTONE 25 MG TAB 4 tablets by mouth daily SPIRONOLACTONE 83010906819 Active Robbie Busby MD Active HYDRALAZINE HCL 50 MG ORAL TABS TWO BY MOUTH THREE TIMES DAILY HYDRALAZINE HCL 41797033857 No Longer Active 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 INSTRUCTIONAL FACILITATOR Active HYDROCODONE-ACETAMINOPHEN 5-325 MG TABS 1 tab by mouth BID prn back pain 2013 HYDROCODONE-ACETAMINOPHEN 64588057414 No Longer Active 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 INSTRUCTIONAL FACILITATOR Active HYDROCHLOROTHIAZIDE TABS Take one by mouth daily HYDROCHLOROTHIAZIDE TABS 75442823666 No Longer Active 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 INSTRUCTIONAL FACILITATOR Active LAMISIL 125 MG ORAL PACK 1 TAB PO DAILY TERBINAFINE HCL 59740729348 No Longer Active 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 INSTRUCTIONAL FACILITATOR Active TRILEPTAL 150 MG ORAL TABS 1 TAB PO Q HS OXCARBAZEPINE 56971921407 No Longer Active 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 INSTRUCTIONAL FACILITATOR Active BETADINE 10 % EXT SOLN 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 POVIDONE-IODINE 26470462786 No Longer Active 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 INSTRUCTIONAL FACILITATOR Active NYSTATIN 818629 UNIT/ML M/T SUSP 5mL po QID x 10 days NYSTATIN 42273558720 No Longer Active Erin Garsia APRN Active PREDNISONE 20 MG TAB 1 tablet twice daily for 2 days, then 1 tablet once daily for 2 days PREDNISONE 30420079542 No Longer Active Robbie Busby MD Active CEFDINIR 300 MG ORAL CAPS Take 1 cap po bid x 10 days CEFDINIR 11534467046 No Longer Active Robbie Busby MD Active AMLODIPINE BESYLATE 10 MG TABS 1 tablet by mouth daily AMLODIPINE BESYLATE 68212925355 Active Robbie Busby MD Active CARVEDILOL 25 MG TABS 1 & 1/2 TAB po BID CARVEDILOL 85207523994 Active Erin Garsia APRN Active VITAMIN D3 54956 UNIT CAPS 2 CAPS PO WEEKLY CHOLECALCIFEROL 00410543843 Active Erin Garsia APRN Active NEXIUM 40 MG CPDR 1 cap by mouth daily ESOMEPRAZOLE MAGNESIUM 23422435400 Active Gali Negro Active PROTONIX 40 MG SOLR 1 po qday for acid reflux PANTOPRAZOLE SODIUM 89090020840 No Longer Active Gali Negro Active KEFLEX 500 MG CAP 1 po TID x 10 days CEPHALEXIN 43637684983 No Longer Active Robbie Busby MD Active FIORICET 50-300-40 MG ORAL CAPS take 1 tab po qday prn migraines. [id number] 55518284285 Active Robbie Busby MD Active TOPIRAMATE 50 MG ORAL TABS take 1 tab po BID for migraines. TOPIRAMATE 55950753334 Active Robbie Busby MD Active MECLIZINE HCL 25 MG TAB one 4 times a day as needed for dizziness MECLIZINE HCL 21557982617 Active Robbie Busby MD Active TEMAZEPAM 15 MG ORAL CAPS 1 TAB PO Q HS TEMAZEPAM 88534851698 Active Robbie Busby MD Active ALPRAZOLAM 2 MG ORAL TABS 1 TAB PO BID ALPRAZOLAM 28482983604 Active Robbie Busby MD Active FENOFIBRATE 145 MG TABS Take one by mouth daily FENOFIBRATE 59258924323 No Longer Active Robbie Busby MD Active SPIRONOLACTONE 50 MG TABS 1 tablet by mouth twice a day SPIRONOLACTONE 69737155517 No Longer Active Robbie Busby MD Active HYDRALAZINE HCL 25 MG TABS 1 tablet by mouth tid for hypertension HYDRALAZINE HCL 95950924985 No Longer Active Robbie Busyb MD Active VIIBRYD 40 MG TABS take 1 tab po qday for depression. VILAZODONE HCL 38299313799 No Longer Active Robbie Busby MD Active TERBINAFINE HCL 250 MG TABS 1 tab po qday for foot infection 2014 TERBINAFINE HCL 22485222184 No Longer Active Robbie Busby MD Active GABAPENTIN 300 MG CAPS 1 po q hs for nerve pain GABAPENTIN 78332753111 Active Robbie Busby MD Active FLONASE 50 MCG/ACT SUSP 1 spray each nostril twice daily for allergies and runny nose FLUTICASONE PROPIONATE 93659289755 Active Robbie Busby MD Active CHERATUSSIN AC 100-10 MG/5ML ORAL SOLN 7.5 mL PO q 4-6 hrs PRN cough GUAIFENESIN-CODEINE 32960628782 No Longer Active Robbie Busby MD Active AZITHROMYCIN 250 MG ORAL TABS 2 tablets PO today---then, 1 tablet PO daily x 4 more days (and 1 optional refill) AZITHROMYCIN 18861536803 No Longer Active Robbie Busby MD Active CLONIDINE HCL 0.2 MG ORAL TABS 1 TAB BY MOUTH EVERY 8 HOURS CLONIDINE HCL 56368575817 Active Erin Garsia APRN Active NORVASC 10 MG TAB 1 tablet by mouth daily AMLODIPINE BESYLATE 56239877963 No Longer Active Alex ALVAREZ Active IMDUR 60 MG TAB CR take 1 tab po qday for blood pressure ISOSORBIDE MONONITRATE Active Robbie Busby MD Active ISOSORBIDE DINITRATE 30 MG TABS Take one by mouth daily ISOSORBIDE DINITRATE 33372402160 No Longer Active Robbie Busby MD Active VIIBRYD 40 MG TABS 1 TA B PO DAILY VILAZODONE HCL 43939267751 Active Robbie Busby MD Active LORATADINE 10 MG TABS 1 tablet by mouth daily for congestion and allergies. LORATADINE 42651204535 Active Robbie Busby MD Active ZITHROMAX 250 MG TAB 2 po today, then 1 po q days 2-5 AZITHROMYCIN 67622909832 No Longer Active Robbie Busby MD Active OULINMFY-MJR-1 0.3 MG/24HR PTWK apply 2 patches q week for HTN CLONIDINE HCL 40070752799 Active Robbie Busby MD Active NITROSTAT 0.4 MG SUBL PRN NITROGLYCERIN 88752791036 Active Robbie Busby MD Active DOXAZOSIN MESYLATE 4 MG TABS Take one by mouth daily DOXAZOSIN MESYLATE 77250896933 Active Robbie Busby MD Active TOPROL XL 200 MG IL35Z-RLA Take one by mouth daily METOPROLOL SUCCINATE 11671565973 Active Robbie Busby MD Active VENLAFAXINE HCL ER 150 MG VI98X-RYK Take one by mouth daily VENLAFAXINE HCL 53671434035 Active Robbie Busby MD Active LIPITOR 40 MG TABS Take one by mouth daily ATORVASTATIN CALCIUM 00412353440 Active Robbie Busby MD Active ISOSORBIDE DINITRATE 30 MG TABS Take one by mouth daily ISOSORBIDE DINITRATE 30 MG TABS 764702 ISOSORBIDE DINITRATE Inactive NORVASC 10 MG TAB 1 tablet by mouth daily NORVASC 10 MG TAB 719763 AMLODIPINE BESYLATE Inactive AZITHROMYCIN 250 MG ORAL TABS 2 tablets PO today---then, 1 tablet PO daily x 4 more days (and 1 optional refill) AZITHROMYCIN 250 MG ORAL TABS 2912664 AZITHROMYCIN Inactive CHERATUSSIN AC 100-10 MG/5ML ORAL SOLN 7.5 mL PO q 4-6 hrs PRN cough CHERATUSSIN AC 100-10 MG/5ML ORAL SOLN 111532 GUAIFENESIN- CODEINE Inactive VIIBRYD 40 MG TABS take 1 tab po qday for depression. VIIBRYD 40 MG TABS VILAZODONE HCL Inactive HYDRALAZINE HCL 25 MG TABS 1 tablet by mouth tid for hypertension HYDRALAZINE HCL 25 MG TABS 133734 HYDRALAZINE HCL Inactive SPIRONOLACTONE 50 MG TABS 1 tablet by mouth twice a day SPIRONOLACTONE 50 MG TABS 487622 SPIRONOLACTONE Inactive FENOFIBRATE 145 MG TABS Take one by mouth daily FENOFIBRATE 145 MG TABS 491891 FENOFIBRATE Inactive PROTONIX 40 MG SOLR 1 po qday for acid reflux PROTONIX 40 MG SOLR 329261 PANTOPRAZOLE SODIUM Inactive CEFDINIR 300 MG ORAL CAPS Take 1 cap po bid x 10 days CEFDINIR 300 MG ORAL CAPS 021154 CEFDINIR Inactive PREDNISONE 20 MG TAB 1 tablet twice daily for 2 days, then 1 tablet once daily for 2 days PREDNISONE 20 MG TAB 705706 PREDNISONE Inactive NYSTATIN 975214 UNIT/ML M/T SUSP 5mL po QID x 10 days NYSTATIN 315458 UNIT/ML M/T SUSP 538363 NYSTATIN Inactive BETADINE 10 % EXT SOLN 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 BETADINE 10 % EXT SOLN 3398221 POVIDONE-IODINE Inactive TRILEPTAL 150 MG ORAL TABS 1 TAB PO Q HS TRILEPTAL 150 MG ORAL TABS 165439 OXCARBAZEPINE Inactive LAMISIL 125 MG ORAL PACK 1 TAB PO DAILY LAMISIL 125 MG ORAL PACK TERBINAFINE HCL Inactive HYDROCHLOROTHIAZIDE TABS Take one by mouth daily HYDROCHLOROTHIAZIDE TABS HYDROCHLOROTHIAZIDE TABS Inactive HYDROCODONE-ACETAMINOPHEN 5-325 MG TABS 1 tab by mouth BID prn back pain 2013 HYDROCODONE-ACETAMINOPHEN 5-325 MG TABS 080174 HYDROCODONE -ACETAMINOPHEN Inactive HYDRALAZINE HCL 50 MG ORAL TABS TWO BY MOUTH THREE TIMES DAILY HYDRALAZINE HCL 50 MG ORAL TABS 187381 HYDRALAZINE HCL Inactive ZITHROMAX 250 MG TAB 2 po today, then 1 po q days 2-5 ZITHROMAX 250 MG TAB 9167484 AZITHROMYCIN Inactive TERBINAFINE HCL 250 MG TABS 1 tab po qday for foot infection 2014 TERBINAFINE HCL 250 MG TABS 675219 TERBINAFINE HCL Inactive KEFLEX 500 MG CAP 1 po TID x 10 days KEFLEX 500 MG CAP 146441 CEPHALEXIN Inactive BACTRIM DS 800-160 MG TAB 1 tab by mouth twice daily BACTRIM DS 800-160 MG TAB 514389 TRIMETHOPRIM-SULFAMETHOXAZOLE Inactive Advance Directives Directive Description Start [...] Acid - Chemistry sodium, serum 139 mmol/L 612-184 9908/04/22 carbon dioxide, venous blood 29.4 mmol/L 21.0-32.0 [...] to Follow Negative Lab Report: VITAMIN D, 25-HYDROXY/47774 - Chemistry vitamin D 25-hydroxy, serum 23 ng/mL 30-100 Encounters Code Encounter Date Provider Facility CPT-12465 Level 3 Est. Patient 09:16:37 CDT Robbie Busby MD [facility] CPT-47653 Level 3 Est. Patient 19:38:43 CDT Robbie Busby MD [facility] CPT-88639 Level 3 Est. Patient 11:53:38 CDT Robbie Busby MD [facility] CPT-62997 Level 4 Est. Patient 12:52:22 CDT Rober Rodríguez APRN [facility] CPT-74926 Level 4 Est. Patient 22:55:17 CDT Robbie Busby MD [facility] CPT-59702 Level 3 Est. Patient 12:38:24 CDT Desmond Diaz DO [facility] CPT-06953 Level 4 Est. Patient 11:25:03 SITE IDENTIFICATION SPECIALIST Robbie Busby MD [facility] CPT-28252 Level 4 Est. Patient 14:50:10 CDT Robbie Busby MD [facility] CPT-30253 Level 4 Est. Patient 23:30:43 CDT Robbie Busby MD [facility] CPT-79901 Level 4 Est. Patient 10:30:43 CDT Robbie Busby MD [facility] CPT-75326 Level 3 Est. Patient 17:08:12 CDT Alex ALVAREZ [facility] CPT-46976 Level 4 Est. Patient 17:51:38 CDT Robbie Busby MD [facility] CPT-68750 Level 4 Est. Patient 14:00:21 CDT Robbie Busby MD [facility] CPT-75453 Level 4 Est. Patient 12:46:48 CDT Robbie Busby MD [facility] CPT-49830 Level 4 Est. Patient 13:34:33 CDT Robbie Busby MD [facility] CPT-56162 Level 4 Est. Patient 16:58:28 CDT Robbie Busby MD [facility] CPT-63705 Level 3 Est. Patient 19:36:53 CDT Alex Shaw [facility] CPT-69203 Level 3 Est. Patient 12:58:15 CDT Robbie Busby MD [facility] Procedures Code Procedure Name Date Entry Date Standard Description CPT-36045 Wound Culture - LAB USE ONLY 14:00:21 CDT CPT-I/D I/D Abscess 09:16:37 CDT CPT-45011 Venipuncture Draw Fee 15:20:23 CDT CPT-75453 Microalbumin - LAB USE ONLY 16:02:19 CDT CPT-69117 CBC - LAB USE ONLY 16:02:19 CDT CPT-98403 Venipuncture Draw Fee 16:02:19 CDT CPT-G0438 Initial Annual Wellness Exam 08:10:28 CDT CPT-72475 Venipuncture Draw Fee 13:07:17 CDT CPT-G0008 Administration of Influenza Virus Vaccine 16:09:59 CDT CPT-74212 Fluzone Quadrivalent Intramuscular Suspension 0.5 ML 16: 09:59 CDT CPT-29616 Spec Collection and Handling Fee 15:05:50 CDT
--- OUTSIDE RECORDS SUMMARY | 2018-04-18 10:38 | XMS REPORT | Clinical Summary ---
Author Author Admin, [facility] Organization [facility] Address Unknown Phone Unavailable Allergies, Adverse [...] for allergies and runny nose FLUTICASONE PROPIONATE 83865977172 Active Robbie Busby MD Active CHERATUSSIN AC 100-10 MG/5ML ORAL SOLN 7.5 mL PO q 4-6 hrs PRN cough GUAIFENESIN-CODEINE 57336400067 No Longer Active Robbie Busby MD Active AZITHROMYCIN 250 MG ORAL TABS 2 tablets PO today---then, 1 tablet PO daily x 4 more days (and 1 optional refill) AZITHROMYCIN 00228506561 No Longer Active Robbie Busby MD Active CLONIDINE HCL 0.2 MG ORAL TABS 1 TAB BY MOUTH EVERY 8 HOURS CLONIDINE HCL 71742224311 Active Robbie Busby MD Active HYDROCHLOROTHIAZIDE TABS Take one by mouth daily HYDROCHLOROTHIAZIDE TABS 33382658995 Active Alex ALVRAEZ Active NORVASC 10 MG TAB 1 tablet by mouth daily AMLODIPINE BESYLATE 21389200541 No Longer Active Alex ALVAREZ Active PROTONIX 40 MG SOLR 1 po qday for acid reflux PANTOPRAZOLE SODIUM 33469338139 Active Robbie Busby MD Active IMDUR 60 MG TAB CR take 1 tab po qday for blood pressure ISOSORBIDE MONONITRATE Active Robbie Busby MD Active ISOSORBIDE DINITRATE 30 MG TABS Take one by mouth daily ISOSORBIDE DINITRATE 36993592561 No Longer Active Robbie Busby MD Active VIIBRYD 40 MG TABS take 1 tab po qday for depression. VILAZODONE HCL 05379216986 Active Robbie Busby MD Active VIIBRYD 40 MG TABS 1 TA B PO DAILY VILAZODONE HCL 30141637826 Active Robbie Busby MD Active LORATADINE 10 MG TABS 1 tablet by mouth daily for congestion and allergies. LORATADINE 40128242086 Active Robbie Busby MD Active ZITHROMAX 250 MG TAB 2 po today, then 1 po q days 2-5 AZITHROMYCIN 29322990263 No Longer Active Robbie Busby MD Active HYDROCODONE-ACETAMINOPHEN 5-325 MG TABS 1 tab by mouth BID prn back pain 2013 HYDROCODONE-ACETAMINOPHEN 88658895361 Active Robbie Busby MD Active HYDRALAZINE HCL 50 MG TABS take 1 tab po QID for high blood pressure HYDRALAZINE HCL 32056399764 Active Robbie Busby MD Active COWLECRY-FCS-2 0.3 MG/24HR PTWK apply 2 patches q week for HTN CLONIDINE HCL 43300339974 Active Robbie Busby MD Active FENOFIBRATE 145 MG TABS Take one by mouth daily FENOFIBRATE 66049987068 Active Robbie Busby MD Active NITROSTAT 0.4 MG SUBL PRN NITROGLYCERIN 04963036425 Active Robbie Busby MD Active DOXAZOSIN MESYLATE 4 MG TABS Take one by mouth daily DOXAZOSIN MESYLATE 65538058874 Active Robbie Busby MD Active HYDRALAZINE HCL 25 MG TABS 1 tablet by mouth tid for hypertension HYDRALAZINE HCL 97940997083 Active Robbie Busby MD Active TOPROL XL 200 MG [id number] Take one by mouth daily METOPROLOL SUCCINATE 02106352340 Active Robbie Busby MD Active SPIRONOLACTONE 50 MG TABS 1 tablet by mouth twice a day SPIRONOLACTONE 52617586997 Active Robbie Busby MD Active VENLAFAXINE HCL ER 150 MG [id number] Take one by mouth daily VENLAFAXINE HCL 34780335752 Active Robbie Busby MD Active LIPITOR 40 MG TABS Take one by mouth daily ATORVASTATIN CALCIUM 98239256640 Active Robbie Busby MD Active ISOSORBIDE DINITRATE 30 MG TABS Take one by mouth daily ISOSORBIDE DINITRATE 30 MG TABS 226425 ISOSORBIDE DINITRATE Inactive NORVASC 10 MG TAB 1 tablet by mouth daily NORVASC 10 MG TAB 604377 AMLODIPINE BESYLATE Inactive AZITHROMYCIN 250 MG ORAL TABS 2 tablets PO today---then, 1 tablet PO daily x 4 more days (and 1 optional refill) AZITHROMYCIN 250 MG ORAL TABS 5769403 AZITHROMYCIN Inactive CHERATUSSIN AC 100-10 MG/5ML ORAL SOLN 7.5 mL PO q 4-6 hrs PRN cough CHERATUSSIN AC 100-10 MG/5ML ORAL SOLN 909244 GUAIFENESIN- CODEINE Inactive ZITHROMAX 250 MG TAB 2 po today, then 1 po q days 2-5 ZITHROMAX 250 MG TAB 6838568 AZITHROMYCIN Inactive Vital Signs Date Name Value [...] 2+ mg/dL Negative sodium, serum 144 mmol/L 293-886 4213/07/07 potassium, serum 3.9 mmol/L 3.5-5.2 chloride, serum [...] Panel - Chemistry sodium, serum 141 mmol/L 138-029 4847/12/05 potassium, serum 4.0 mmol/L 3.5-5.2 chloride, serum [...] mg/dL Encounters Code Encounter Date Provider Facility CPT-66934 Level 4 Est. Patient 10:30:43 CDT Robbie Busby MD [facility] CPT-21413 Level 3 Est. Patient 17:08:12 CDT Alex Shaw [facility] CPT-84433 Level 4 Est. Patient 17:51:38 CDT Robbie Busby MD [facility] CPT-59621 Level 4 Est. Patient 14:00:21 CDT Robbie Busby MD [facility] CPT-35277 Level 4 Est. Patient 12:46:48 CDT Robbie Busby MD [facility] CPT-47297 Level 4 Est. Patient 13:34:33 CDT Robbie Busby MD [facility] CPT-93931 Level 4 Est. Patient 16:58:28 CDT Robbie Busby MD [facility] CPT-72737 Level 3 Est. Patient 19:36:53 CDT Alex Shaw [facility] CPT-64927 Level 3 Est. Patient 12:58:15 CDT Robbie Busby MD [facility] Procedures Code Procedure Name Date Entry Date Standard Description CPT-G0008 Administration of Influenza Virus Vaccine 16:09:59 CDT CPT-68100 Fluzone Quadrivalent Intramuscular Suspension 0.5 ML 16: 09:59 CDT CPT-76508 Spec Collection and Handling Fee 15:05:50 CDT
--- OUTSIDE RECORDS SUMMARY | 2018-04-18 10:38 | XMS REPORT | Clinical Summary ---
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 Medication List Medication Instructions Start Date Stop Date Generic Name NDC Status Provider Patient Instruction GUAIFENESIN ER 600 MG ORAL TABLET EXTENDED RELEASE 12 HOUR 1 tab po q am 2016 GUAIFENESIN [id number] No Longer Active Robbie Busby MD Active DIVALPROEX SODIUM ER 500 MG ORAL TABLET EXTENDED RELEASE 24 HOUR Once daily DIVALPROEX SODIUM 90204111497 Active Robbie Busby MD Active DEPO-TESTOSTERONE 200 MG/ML INTRAMUSCULAR SOLUTION 1 IM Injections every 2 weeks for low testosterone TESTOSTERONE CYPIONATE 76889188397 Active Zulema Blank LPN Active CYCLOBENZAPRINE HCL 10 MG ORAL TABLET 1 po TID PRN muscle spasm/pain for 10 days CYCLOBENZAPRINE HCL 67172229272 Active JONATHAN Moncada Active FLUTICASONE PROPIONATE 50 MCG/ACT NASAL SUSPENSION 2 sprays per nostril bid for 1 week, then 1 spray bid FLUTICASONE PROPIONATE 93324505266 Active Rober Rodríguez TRAVELING AUDITOR Active HYDRALAZINE HCL 25 MG ORAL TABLET Take 1 tab BID. HYDRALAZINE HCL 03939616956 Active Rober Rodríguez APRN Active VITAMIN D3 50561 UNIT ORAL TABLET 2 po weekly CHOLECALCIFEROL 67108406651 Active Robbie Busby MD Active OXYCODONE HCL ER 10 MG ORAL TABLET ER 12 HOUR ABUSE-DETERRENT 1 tab po 3 times qd. OXYCODONE HCL 06286911420 Active Robbie Busby MD Active NITROSTAT 0.4 MG SUBLINGUAL TABLET SUBLINGUAL PRN NITROGLYCERIN 46027927361 No Longer Active Robbie Busby MD Active LORATADINE 10 MG ORAL TABLET 1 tablet by mouth daily for congestion and allergies. LORATADINE 61860686293 No Longer Active Robbie Busby MD Active FLONASE 50 MCG/ACT NASAL SUSPENSION 1 spray each nostril twice daily for allergies and runny nose FLUTICASONE PROPIONATE 96615361364 No Longer Active Robbie Busby MD Active FIORICET 50-300-40 MG ORAL CAPSULE take 1 tab po qday prn migraines. [id number] 17202020228 No Longer Active Robbie Busby MD Active VITAMIN D3 75150 UNIT ORAL CAPSULE 2 CAPS PO WEEKLY CHOLECALCIFEROL 49613975301 No Longer Active Robbie Busby MD Active CYCLOBENZAPRINE HCL 10 MG ORAL TABLET 1 tablet by mouth three times daily as needed for muscle spasm/pain for 10 days CYCLOBENZAPRINE HCL 92316495335 No Longer Active Robbie Busby MD Active PREDNISONE 20 MG ORAL TABLET take 3 tabs daily for 3 days, 2 tabs daily for 3 days, 1 tab daily for 3 days, 1/2 tab daily for 4 days PREDNISONE 70528487536 No Longer Active Erin Garsia APRN Active CLONIDINE HCL 0.2 MG ORAL TABLET 1 TAB BY MOUTH EVERY 8 HOURS CLONIDINE HCL 12232398571 No Longer Active Erin Garsia APRN Active MECLIZINE HCL 25 MG ORAL TABLET one 4 times a day as needed for dizziness MECLIZINE HCL 65128003478 No Longer Active Erin Garsia APRN Active SPIRONOLACTONE 25 MG ORAL TABLET 4 tablets by mouth daily SPIRONOLACTONE 58546520438 No Longer Active Erin Garsia APRN Active LEVAQUIN 500 MG ORAL TABLET 1 tablet by mouth daily for 7 days LEVOFLOXACIN 95073069124 No Longer Active Erin Garsia APRN Active BACTRIM DS 800-160 MG ORAL TABLET 1 tab by mouth twice daily 2015 TRIMETHOPRIM-SULFAMETHOXAZOLE 71232465436 No Longer Active Robbie Busby MD Active HYDRALAZINE HCL 50 MG ORAL TABLET TWO BY MOUTH THREE TIMES DAILY HYDRALAZINE HCL 82220942004 No Longer Active Rober Rodríguez APRN Active HYDROCODONE-ACETAMINOPHEN 5-325 MG ORAL TABLET 1 tab by mouth BID prn back pain HYDROCODONE-ACETAMINOPHEN 55401817082 No Longer Active Jillld Rodríguez APRN Active HYDROCHLOROTHIAZIDE TABLET Take one by mouth daily HYDROCHLOROTHIAZIDE TABS 47598604598 No Longer Active Andrellld Rodríguez APRN Active LAMISIL 125 MG ORAL PACKET 1 TAB PO DAILY TERBINAFINE HCL 13132228032 No Longer Active Andrellld Rodríguez APRN Active TRILEPTAL 150 MG ORAL TABLET 1 TAB PO Q HS OXCARBAZEPINE 06982342040 No Longer Active Rober Rodríguez APRN Active BETADINE 10 % EXTERNAL SOLUTION 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 07/29 POVIDONE-IODINE 55732503269 No Longer Active Rober Rodríguez APRN Active NYSTATIN 158882 UNIT/ML MOUTH/THROAT SUSPENSION 5mL po QID x 10 days NYSTATIN 41159350278 No Longer Active Erin Garsia APRN Active PREDNISONE 20 MG ORAL TABLET 1 tablet twice daily for 2 days, then 1 tablet once daily for 2 days PREDNISONE 74313642670 No Longer Active Robbie Busby MD Active CEFDINIR 300 MG ORAL CAPSULE Take 1 cap po bid x 10 days CEFDINIR 81616624774 No Longer Active Robbie Busby MD Active AMLODIPINE BESYLATE 10 MG ORAL TABLET 1 tablet by mouth daily AMLODIPINE BESYLATE 03127273009 Active Robbie Busby MD Active CARVEDILOL 25 MG ORAL TABLET 1 & 1/2 TAB po BID CARVEDILOL 41561600831 Active Robbie Busby MD Active NEXIUM 40 MG ORAL CAPSULE DELAYED RELEASE 1 cap by mouth daily ESOMEPRAZOLE MAGNESIUM 71344121293 Active Robbie Busby MD Active PROTONIX 40 MG INTRAVENOUS SOLUTION RECONSTITUTED 1 po qday for acid reflux PANTOPRAZOLE SODIUM 94912452157 No Longer Active Gali Raida Active KEFLEX 500 MG ORAL CAPSULE 1 po TID x 10 days CEPHALEXIN 66542217710 No Longer Active Robbie Busby MD Active TOPIRAMATE 50 MG ORAL TABLET take 1 tab po BID for migraines. TOPIRAMATE 57751077185 Active Robbie Busby MD Active TEMAZEPAM 15 MG ORAL CAPSULE 1 TAB PO Q HS TEMAZEPAM 96455032053 Active Robbie Busby MD Active ALPRAZOLAM 2 MG ORAL TABLET 1 TAB PO BID ALPRAZOLAM 33205419533 Active Robbie Busby MD Active FENOFIBRATE 145 MG ORAL TABLET Take one by mouth daily FENOFIBRATE 95315358206 No Longer Active Robbie Busby MD Active SPIRONOLACTONE 50 MG ORAL TABLET 1 tablet by mouth twice a day SPIRONOLACTONE 90650340734 No Longer Active Robbie Busby MD Active HYDRALAZINE HCL 25 MG ORAL TABLET 1 tablet by mouth tid for hypertension 2013 HYDRALAZINE HCL 16909144318 No Longer Active Robbie Busby MD Active VIIBRYD 40 MG ORAL TABLET take 1 tab po qday for depression. 2014 VILAZODONE HCL 19654561364 No Longer Active Robbie Busby MD Active TERBINAFINE HCL 250 MG ORAL TABLET 1 tab po qday for foot infection TERBINAFINE HCL 34784134780 No Longer Active Robbie Busby MD Active GABAPENTIN 300 MG ORAL CAPSULE 1 po q hs for nerve pain GABAPENTIN 41440741497 Active Robbie Busby MD Active CHERATUSSIN AC 100-10 MG/5ML ORAL SOLUTION 7.5 mL PO q 4-6 hrs PRN cough 2014 GUAIFENESIN-CODEINE 54522227401 No Longer Active Robbie Busby MD Active AZITHROMYCIN 250 MG ORAL TABLET 2 tablets PO today---then, 1 tablet PO daily x 4 more days (and 1 optional refill) AZITHROMYCIN 03118568551 No Longer Active Robbie Busby MD Active NORVASC 10 MG ORAL TABLET 1 tablet by mouth daily AMLODIPINE BESYLATE 12121729893 No Longer Active Alex ALVAREZ Active IMDUR 60 MG ORAL TABLET EXTENDED RELEASE 24 HOUR take 1 tab po qday for blood pressure ISOSORBIDE MONONITRATE 63192056597 Active Robbie Busby MD Active ISOSORBIDE DINITRATE 30 MG ORAL TABLET Take one by mouth daily ISOSORBIDE DINITRATE 88948675378 No Longer Active Robbie Busby MD Active VIIBRYD 40 MG ORAL TABLET 1 TA B PO DAILY VILAZODONE HCL 07506856738 Active Robbie Busby MD Active ZITHROMAX 250 MG ORAL TABLET 2 po today, then 1 po q days 2-5 AZITHROMYCIN 15241661429 No Longer Active Robbie Busby MD Active SQUXBOLX-ATE-9 0.3 MG/24HR TRANSDERMAL PATCH WEEKLY apply 2 patches q week for HTN CLONIDINE HCL 00056722611 Active Robbie Busby MD Active DOXAZOSIN MESYLATE 4 MG ORAL TABLET Take one by mouth daily DOXAZOSIN MESYLATE 84039281085 Active Robbie Busby MD Active TOPROL XL 200 MG ORAL TABLET EXTENDED RELEASE 24 HOUR Take one by mouth daily METOPROLOL SUCCINATE 80959239882 Active Robbie Busby MD Active VENLAFAXINE HCL ER 150 MG ORAL TABLET EXTENDED RELEASE 24 HOUR Take one by mouth daily VENLAFAXINE HCL 29007679622 Active Robbie Busby MD Active LIPITOR 40 MG ORAL TABLET Take one by mouth daily ATORVASTATIN CALCIUM 57809252260 Active Robbie Busby MD Active ISOSORBIDE DINITRATE 30 MG ORAL TABLET Take one by mouth daily ISOSORBIDE DINITRATE 30 MG ORAL TABLET 939822 ISOSORBIDE DINITRATE Inactive NORVASC 10 MG ORAL TABLET 1 tablet by mouth daily NORVASC 10 MG ORAL TABLET 264531 AMLODIPINE BESYLATE Inactive AZITHROMYCIN 250 MG ORAL TABLET 2 tablets PO today---then, 1 tablet PO daily x 4 more days (and 1 optional refill) AZITHROMYCIN 250 MG ORAL TABLET 562620 AZITHROMYCIN Inactive CHERATUSSIN AC 100-10 MG/5ML ORAL SOLUTION 7.5 mL PO q 4-6 hrs PRN cough 2014 CHERATUSSIN AC 100-10 MG/5ML ORAL SOLUTION 570698 GUAIFENESIN-CODEINE Inactive VIIBRYD 40 MG ORAL TABLET take 1 tab po qday for depression. 2014 VIIBRYD 40 MG ORAL TABLET VILAZODONE HCL Inactive HYDRALAZINE HCL 25 MG ORAL TABLET 1 tablet by mouth tid for hypertension 2013 HYDRALAZINE HCL 25 MG ORAL TABLET 605740 HYDRALAZINE HCL Inactive SPIRONOLACTONE 50 MG ORAL TABLET 1 tablet by mouth twice a day SPIRONOLACTONE 50 MG ORAL TABLET 832133 SPIRONOLACTONE Inactive FENOFIBRATE 145 MG ORAL TABLET Take one by mouth daily FENOFIBRATE 145 MG ORAL TABLET 563218 FENOFIBRATE Inactive PROTONIX 40 MG INTRAVENOUS SOLUTION RECONSTITUTED 1 po qday for acid reflux PROTONIX 40 MG INTRAVENOUS SOLUTION RECONSTITUTED 707598 PANTOPRAZOLE SODIUM Inactive CEFDINIR 300 MG ORAL CAPSULE Take 1 cap po bid x 10 days CEFDINIR 300 MG ORAL CAPSULE 380568 CEFDINIR Inactive PREDNISONE 20 MG ORAL TABLET 1 tablet twice daily for 2 days, then 1 tablet once daily for 2 days PREDNISONE 20 MG ORAL TABLET 600294 PREDNISONE Inactive NYSTATIN 577492 UNIT/ML MOUTH/THROAT SUSPENSION 5mL po QID x 10 days NYSTATIN 817586 UNIT/ML MOUTH/THROAT SUSPENSION 008417 NYSTATIN Inactive BETADINE 10 % EXTERNAL SOLUTION 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 07/29 BETADINE 10 % EXTERNAL SOLUTION 1168527 POVIDONE-IODINE Inactive TRILEPTAL 150 MG ORAL TABLET 1 TAB PO Q HS TRILEPTAL 150 MG ORAL TABLET 743759 OXCARBAZEPINE Inactive LAMISIL 125 MG ORAL PACKET 1 TAB PO DAILY LAMISIL 125 MG ORAL PACKET TERBINAFINE HCL Inactive HYDROCHLOROTHIAZIDE TABLET Take one by mouth daily HYDROCHLOROTHIAZIDE TABLET HYDROCHLOROTHIAZIDE TABS Inactive HYDROCODONE-ACETAMINOPHEN 5-325 MG ORAL TABLET 1 tab by mouth BID prn back pain HYDROCODONE-ACETAMINOPHEN 5-325 MG ORAL TABLET 165084 HYDROCODONE-ACETAMINOPHEN Inactive HYDRALAZINE HCL 50 MG ORAL TABLET TWO BY MOUTH THREE TIMES DAILY HYDRALAZINE HCL 50 MG ORAL TABLET 700500 HYDRALAZINE HCL Inactive LEVAQUIN 500 MG ORAL TABLET 1 tablet by mouth daily for 7 days LEVAQUIN 500 MG ORAL TABLET 088821 LEVOFLOXACIN Inactive SPIRONOLACTONE 25 MG ORAL TABLET 4 tablets by mouth daily SPIRONOLACTONE 25 MG ORAL TABLET 668294 SPIRONOLACTONE Inactive MECLIZINE HCL 25 MG ORAL TABLET one 4 times a day as needed for dizziness MECLIZINE HCL 25 MG ORAL TABLET 844905 MECLIZINE HCL Inactive CLONIDINE HCL 0.2 MG ORAL TABLET 1 TAB BY MOUTH EVERY 8 HOURS CLONIDINE HCL 0.2 MG ORAL TABLET 904579 CLONIDINE HCL Inactive CYCLOBENZAPRINE HCL 10 MG ORAL TABLET 1 tablet by mouth three times daily as needed for muscle spasm/pain for 10 days CYCLOBENZAPRINE HCL 10 MG ORAL TABLET 349159 CYCLOBENZAPRINE HCL Inactive VITAMIN D3 58379 UNIT ORAL CAPSULE 2 CAPS PO WEEKLY VITAMIN D3 63895 UNIT ORAL CAPSULE CHOLECALCIFEROL Inactive FIORICET 50-300-40 MG ORAL CAPSULE take 1 tab po qday prn migraines. FIORICET 50-300-40 MG ORAL CAPSULE 175752 BUTALBITAL-APAP- CAFFEINE Inactive FLONASE 50 MCG/ACT NASAL SUSPENSION 1 spray each nostril twice daily for allergies and runny nose FLONASE 50 MCG/ACT NASAL SUSPENSION 2593245 FLUTICASONE PROPIONATE Inactive LORATADINE 10 MG ORAL TABLET 1 tablet by mouth daily for congestion and allergies. LORATADINE 10 MG ORAL TABLET 255887 LORATADINE Inactive NITROSTAT 0.4 MG SUBLINGUAL TABLET SUBLINGUAL PRN NITROSTAT 0.4 MG SUBLINGUAL TABLET SUBLINGUAL 189295 NITROGLYCERIN Inactive GUAIFENESIN ER 600 MG ORAL TABLET EXTENDED RELEASE 12 HOUR 1 tab po q am 2016 GUAIFENESIN ER 600 MG ORAL TABLET EXTENDED RELEASE 12 HOUR GUAIFENESIN Inactive ZITHROMAX 250 MG ORAL TABLET 2 po today, then 1 po q days 2-5 ZITHROMAX 250 MG ORAL TABLET 708651 AZITHROMYCIN Inactive TERBINAFINE HCL 250 MG ORAL TABLET 1 tab po qday for foot infection TERBINAFINE HCL 250 MG ORAL TABLET 112259 TERBINAFINE HCL Inactive KEFLEX 500 MG ORAL CAPSULE 1 po TID x 10 days KEFLEX 500 MG ORAL CAPSULE 396382 CEPHALEXIN Inactive BACTRIM DS 800-160 MG ORAL TABLET 1 tab by mouth twice daily 2015 BACTRIM DS 800-160 MG ORAL TABLET 191953 TRIMETHOPRIM- SULFAMETHOXAZOLE Inactive PREDNISONE 20 MG ORAL TABLET take 3 tabs daily for 3 days, 2 tabs daily for 3 days, 1 tab daily for 3 days, 1/2 tab daily for 4 days PREDNISONE 20 MG ORAL TABLET 043710 PREDNISONE Inactive Advance Directives Directive Description Start [...] AUTO - Chemistry sodium, serum 142 mmol/L 535-854 4934/07/17 carbon dioxide, venous blood 28.2 mmol/L 21.0-32.0 [...] % 11.0-15.0 platelet count 185 THOUSAND/UL 10*3/mm3 944-288 6381/04/14 mean platelet volume 10.9 fL 7.5-12.5 Lab Report: LIPID PANEL, TSH/899, T4, FREE/866 - Chemistry cholesterol, serum 220 mg/dL 686-366 2667/04/14 HDL cholesterol, serum 30 mg/dL > OR=40 [...] 1.80 ng/mL 0.00-4.00 Lab Report: VITAMIN D, 25-HYDROXY/78284 - Chemistry vitamin D 25-hydroxy, serum 25 ng/mL 30-100 Office Visit: Confusion, dizziness after fall - Basic LDL target level 130 mg/dL Office Visit: Confusion, dizziness after fall - Chemistry HDL cholesterol, serum, target level 40 mg/dL triglyceride, target level 150 mg/dL cholesterol, target level 200 mg/dL Encounters Code Encounter Date Provider Facility CPT-78221 Level 3 Est. Patient 15:40:49 CDT Robbie Busby MD [facility] CPT-58065 Level 4 Est. Patient 15:18:19 CDT Robbie Busby MD [facility] CPT-69109 Level 3 Est. Patient 09:00:37 CDT Rober Rodríguez [facility] CPT-14619 Level 3 Est. Patient 16:07:10 CDT Robbie Busby MD [facility] CPT-34533 Level 4 Est. Patient 11:56:16 CDT Erin Garsia [facility] CPT-36304 Level 3 Est. Patient 17:48:02 CDT Robbie Busby MD [facility] CPT-57005 Level 4 Est. Patient 12:00:49 PROGRAM MANAGEMENT ANALYST Rober Rodríguez [facility] CPT-77272 Level 3 Est. Patient 09:16:37 CDT Robbie Busby MD [facility] CPT-36492 Level 3 Est. Patient 19:38:43 CDT Robbie Busby MD [facility] CPT-72233 Level 3 Est. Patient 11:53:38 CDT Robbie Busby MD [facility] CPT-68661 Level 4 Est. Patient 12:52:22 CDT Rober Rodríguez [facility] CPT-36448 Level 4 Est. Patient 22:55:17 CDT Robbie Busby MD [facility] CPT-97925 Level 3 Est. Patient 12:38:24 CDT Desmond Diaz DO [facility] CPT-33701 Level 4 Est. Patient 11:25:03 PROGRAM MANAGEMENT ANALYST Robbie Busby MD [facility] CPT-84618 Level 4 Est. Patient 14:50:10 CDT Robbie Busby MD [facility] CPT-72034 Level 4 Est. Patient 23:30:43 CDT Robbie Busby MD [facility] CPT-88603 Level 4 Est. Patient 10:30:43 CDT Robbie Busby MD [facility] CPT-75304 Level 3 Est. Patient 17:08:12 CDT Alex ALVAREZ [facility] CPT-84880 Level 4 Est. Patient 17:51:38 CDT Robbie Busby MD [facility] CPT-71398 Level 4 Est. Patient 14:00:21 CDT Robbie Busby MD [facility] CPT-95453 Level 4 Est. Patient 12:46:48 CDT Robbie Busby MD [facility] CPT-38525 Level 4 Est. Patient 13:34:33 CDT Robbie Busby MD [facility] CPT-36753 Level 4 Est. Patient 16:58:28 CDT Robbie Busby MD [facility] CPT-02058 Level 3 Est. Patient 19:36:53 CDT Alex Shaw [facility] CPT-53175 Level 3 Est. Patient 12:58:15 CDT Robbie Busby MD [facility] Procedures Code Procedure Name Date Entry Date Standard Description CPT-J1071 Depo Testosterone 200mg 10:22:56 PROGRAM MANAGEMENT ANALYST CPT-30073 Abx/Therapy Injection 10:22:56 PROGRAM MANAGEMENT ANALYST CPT-J1071 Depo Testosterone 200mg 15:40:23 CDT CPT-64819 Abx/Therapy Injection 15:40:23 CDT CPT-J1071 Depo Testosterone 200mg 14:20:43 CDT CPT-91197 Abx/Therapy Injection 14:20:43 CDT CPT-J1071 Depo Testosterone 200mg 14:17:22 CDT CPT-22542 Abx/Therapy Injection 14:17:22 CDT CPT-J1071 Depo Testosterone 200mg 09:03:53 CDT CPT-99660 Abx/Therapy Injection 09:03:53 CDT CPT-G0439 [facility] Annual Wellness Exam 16:47:44 CDT CPT-J1071 Depo Testosterone 200mg 09:06:28 CDT CPT-71614 Abx/Therapy Injection 09:06:28 CDT CPT-J1071 Depo Testosterone 200mg 08:30:01 CDT CPT-30936 Abx/Therapy Injection 08:30:01 CDT CPT-J1071 Depo Testosterone 200mg 08:24:00 CDT CPT-25667 Abx/Therapy Injection 08:24:00 CDT CPT-28840 Venipuncture Draw Fee 14:39:06 CDT CPT-32980 Ribs unilateral 2V - XRAY USE ONLY 12:10:11 CDT CPT-97475 First Vx - Ix admin for Medicare patients 16:32:53 CDT CPT-83318 Boostrix Intramuscular Suspension 5-2.5-18.5 16:32:53 CDT CPT-06420 TB Skin Test 11:42:28 CDT CPT-08709 Tdap 7yrs or > 11:42:28 CDT CPT-J0696 Rocephin 1000 mg (Ceftriaxone) 17:43:43 PROGRAM MANAGEMENT ANALYST CPT-J1040 Depo Medrol 80 mg (Methyl Prednisolone Acetate) 17:43: 43 PROGRAM MANAGEMENT ANALYST CPT-J1100 Decadron 8mg (Dexamethasone) 17:43:42 PROGRAM MANAGEMENT ANALYST CPT-46853 Abx/Therapy Injection 17:43:42 PROGRAM MANAGEMENT ANALYST CPT-36295 Abx/Therapy Injection 17:43:42 PROGRAM MANAGEMENT ANALYST CPT-J1040 Depo Medrol 80 mg (Methyl Prednisolone Acetate) 09:43: 34 PROGRAM MANAGEMENT ANALYST CPT-J1100 Decadron 8mg (Dexamethasone) 09:43:34 PROGRAM MANAGEMENT ANALYST CPT-J0696 Rocephin 1gm Inj Solr 09:43:34 PROGRAM MANAGEMENT ANALYST CPT-20774 Wound Culture - LAB USE ONLY 14:00:21 CDT CPT-I/D I/D Abscess 09:16:37 CDT CPT-41621 Venipuncture Draw Fee 15:20:23 CDT CPT-68489 Microalbumin - LAB USE ONLY 16:02:19 CDT CPT-21234 CBC - LAB USE ONLY 16:02:19 CDT CPT-45915 Venipuncture Draw Fee 16:02:19 CDT CPT-G0438 Initial Annual Wellness Exam 08:10:28 CDT CPT-42679 Venipuncture Draw Fee 13:07:17 CDT CPT-G0008 Administration of Influenza Virus Vaccine 16:09:59 CDT CPT-88674 Fluzone Quadrivalent Intramuscular Suspension 0.5 ML 16: 09:59 CDT CPT-40935 Spec Collection and Handling Fee 15:05:50 CDT
--- OUTSIDE RECORDS SUMMARY | 2018-04-18 10:39 | XMS REPORT | Clinical Summary ---
Author Author Admin, [place] Organization [facility] Address Unknown Phone [...] [place] Chronic kidney disease, Stage III (moderate) Medication List Medication Instructions Start Date Stop Date Generic Name NDC Status Provider Patient Instruction VITAMIN D3 90031 UNIT CAPS 1 CAP PO WEEKLY CHOLECALCIFEROL 10681865737 Active Vanessa August Active CEFDINIR 300 MG ORAL CAPS Take 1 cap po bid x 10 days CEFDINIR 63786848066 Active Jackie Junior MA Active PREDNISONE 20 MG TAB 1 tablet twice daily for 2 days, then 1 tablet once daily for 2 days PREDNISONE 36590279610 Active Desmond Diaz DO Active NEXIUM 40 MG CPDR 1 cap by mouth daily ESOMEPRAZOLE MAGNESIUM 45788143908 Active Gali Negro Active PROTONIX 40 MG SOLR 1 po qday for acid reflux PANTOPRAZOLE SODIUM 05554488350 No Longer Active Galileonila Negro Active BETADINE 10 % EXT SOLN 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 POVIDONE-IODINE 72358639344 Active Robbie Busby MD Active KEFLEX 500 MG CAP 1 po TID x 10 days CEPHALEXIN 86972418058 No Longer Active Robbie Busby MD Active FIORICET 50-300-40 MG ORAL CAPS take 1 tab po qday prn migraines. [id number] 12631259871 Active Robbie Busby MD Active TOPIRAMATE 50 MG ORAL TABS take 1 tab po BID for migraines. TOPIRAMATE 54658272228 Active Robbie Busby MD Active HYDRALAZINE HCL 50 MG ORAL TABS TWO BY MOUTH THREE TIMES DAILY HYDRALAZINE HCL 08702299610 Active Robbie Busby MD Active MECLIZINE HCL 25 MG TAB one 4 times a day as needed for dizziness MECLIZINE HCL 84860947789 Active Robbie Busby MD Active TRILEPTAL 150 MG ORAL TABS 1 TAB PO Q HS OXCARBAZEPINE 07527642049 Active Robbie Busby MD Active TEMAZEPAM 15 MG ORAL CAPS 1 TAB PO Q HS TEMAZEPAM 50074759706 Active Robbie Busby MD Active ALPRAZOLAM 2 MG ORAL TABS 1 TAB PO BID ALPRAZOLAM 14424596980 Active Robbie Busby MD Active FENOFIBRATE 145 MG TABS Take one by mouth daily FENOFIBRATE 72304767656 No Longer Active Robbie Busby MD Active LAMISIL 125 MG ORAL PACK 1 TAB PO DAILY TERBINAFINE HCL 64439309641 Active Robbie Busby MD Active SPIRONOLACTONE 50 MG TABS 1 tablet by mouth twice a day SPIRONOLACTONE 41960639036 No Longer Active Robbie Busby MD Active HYDRALAZINE HCL 25 MG TABS 1 tablet by mouth tid for hypertension HYDRALAZINE HCL 97407711042 No Longer Active Robbie Busby MD Active VIIBRYD 40 MG TABS take 1 tab po qday for depression. VILAZODONE HCL 45504869680 No Longer Active Robbie Busby MD Active TERBINAFINE HCL 250 MG TABS 1 tab po qday for foot infection 2014 TERBINAFINE HCL 94968653443 No Longer Active Robbie Busby MD Active GABAPENTIN 300 MG CAPS 1 po q hs for nerve pain GABAPENTIN 25237519181 Active Robbie Busby MD Active FLONASE 50 MCG/ACT SUSP 1 spray each nostril twice daily for allergies and runny nose FLUTICASONE PROPIONATE 18082294239 Active Robbie Busby MD Active CHERATUSSIN AC 100-10 MG/5ML ORAL SOLN 7.5 mL PO q 4-6 hrs PRN cough GUAIFENESIN-CODEINE 84632112881 No Longer Active Robbie Busby MD Active AZITHROMYCIN 250 MG ORAL TABS 2 tablets PO today---then, 1 tablet PO daily x 4 more days (and 1 optional refill) AZITHROMYCIN 68278316392 No Longer Active Robbie Busby MD Active CLONIDINE HCL 0.2 MG ORAL TABS 1 TAB BY MOUTH EVERY 8 HOURS CLONIDINE HCL 92790786471 Active Robbie Busby MD Active HYDROCHLOROTHIAZIDE TABS Take one by mouth daily HYDROCHLOROTHIAZIDE TABS 29190075785 Active Alex ALVAREZ Active NORVASC 10 MG TAB 1 tablet by mouth daily AMLODIPINE BESYLATE 87013535325 No Longer Active Alex ALVAREZ Active IMDUR 60 MG TAB CR take 1 tab po qday for blood pressure ISOSORBIDE MONONITRATE Active Robbie Busby MD Active ISOSORBIDE DINITRATE 30 MG TABS Take one by mouth daily ISOSORBIDE DINITRATE 10675608717 No Longer Active Robbie Busby MD Active VIIBRYD 40 MG TABS 1 TA B PO DAILY VILAZODONE HCL 16247856098 Active Erin Garsia APRN Active LORATADINE 10 MG TABS 1 tablet by mouth daily for congestion and allergies. LORATADINE 33978403379 Active Robbie Busby MD Active ZITHROMAX 250 MG TAB 2 po today, then 1 po q days 2-5 AZITHROMYCIN 02360578493 No Longer Active Robbie Busby MD Active HYDROCODONE-ACETAMINOPHEN 5-325 MG TABS 1 tab by mouth BID prn back pain 2013 HYDROCODONE-ACETAMINOPHEN 77034745251 Active Robbie Busby MD Active [id number]-3 0.3 MG/24HR PTWK apply 2 patches q week for HTN CLONIDINE HCL 47778339800 Active Robbie Busby MD Active NITROSTAT 0.4 MG SUBL PRN NITROGLYCERIN 38042874659 Active Robbie Busby MD Active DOXAZOSIN MESYLATE 4 MG TABS Take one by mouth daily DOXAZOSIN MESYLATE 05382843239 Active Robbie Busby MD Active TOPROL XL 200 MG [id number] Take one by mouth daily METOPROLOL SUCCINATE 80205170298 Active Robbie Busby MD Active VENLAFAXINE HCL ER 150 MG [id number] Take one by mouth daily VENLAFAXINE HCL 11707790889 Active Robbie Busby MD Active LIPITOR 40 MG TABS Take one by mouth daily ATORVASTATIN CALCIUM 13350522126 Active Robbie Busby MD Active ISOSORBIDE DINITRATE 30 MG TABS Take one by mouth daily ISOSORBIDE DINITRATE 30 MG TABS 378012 ISOSORBIDE DINITRATE Inactive NORVASC 10 MG TAB 1 tablet by mouth daily NORVASC 10 MG TAB 275488 AMLODIPINE BESYLATE Inactive AZITHROMYCIN 250 MG ORAL TABS 2 tablets PO today---then, 1 tablet PO daily x 4 more days (and 1 optional refill) AZITHROMYCIN 250 MG ORAL TABS 0936584 AZITHROMYCIN Inactive CHERATUSSIN AC 100-10 MG/5ML ORAL SOLN 7.5 mL PO q 4-6 hrs PRN cough CHERATUSSIN AC 100-10 MG/5ML ORAL SOLN 579012 GUAIFENESIN- CODEINE Inactive VIIBRYD 40 MG TABS take 1 tab po qday for depression. VIIBRYD 40 MG TABS VILAZODONE HCL Inactive HYDRALAZINE HCL 25 MG TABS 1 tablet by mouth tid for hypertension HYDRALAZINE HCL 25 MG TABS 257936 HYDRALAZINE HCL Inactive SPIRONOLACTONE 50 MG TABS 1 tablet by mouth twice a day SPIRONOLACTONE 50 MG TABS 908926 SPIRONOLACTONE Inactive FENOFIBRATE 145 MG TABS Take one by mouth daily FENOFIBRATE 145 MG TABS 501089 FENOFIBRATE Inactive PROTONIX 40 MG SOLR 1 po qday for acid reflux PROTONIX 40 MG SOLR 186007 PANTOPRAZOLE SODIUM Inactive ZITHROMAX 250 MG TAB 2 po today, then 1 po q days 2-5 ZITHROMAX 250 MG TAB 5006438 AZITHROMYCIN Inactive TERBINAFINE HCL 250 MG TABS 1 tab po qday for foot infection 2014 TERBINAFINE HCL 250 MG TABS 507337 TERBINAFINE HCL Inactive KEFLEX 500 MG CAP 1 po TID x 10 days KEFLEX 500 MG CAP 223514 CEPHALEXIN Inactive Vital Signs Date Name Value [...] Name Value Unit Range Description Lab Report: Comp. Metabolic Panel, Uric Acid - Chemistry sodium, serum 139 mmol/L 065-896 5683/04/22 carbon dioxide, venous blood 29.4 mmol/L 21.0-32.0 [...] acid, serum 10.7 mg/dL 2.6-7.2 Lab Report: Creatinine - Chemistry creatinine, serum 1.40 mg/dL 0.60-1.30 Lab Report: HEPATITIS B SAB/Immune Status, RUBELLA IGG AB(Immune Status) - Serology rubella antibody, serum, IgG 2.06 Lab Report: Lipid Panel, HEPATIC PANEL - Chemistry cholesterol, serum 211 mg/dL 716-002 0190/08/31 triglyceride, serum, fasting 429 mg/dL 30-200 HDL [...] Negative Encounters Code Encounter Date Provider Facility CPT-43236 Level 3 Est. Patient 12:38:24 CDT Desmond Diaz DO [facility] CPT-98840 Level 4 Est. 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 Patient 14:50:10 CDT Robbie Busby MD [facility] CPT-08288 Level 4 Est. Patient 23:30:43 CDT Robbie Busby MD [facility] CPT-94881 Level 4 Est. Patient 10:30:43 CDT Robbie Busby MD [facility] CPT-48973 Level 3 Est. Patient 17:08:12 CDT Alex ALVAREZ [facility] CPT-28016 Level 4 Est. Patient 17:51:38 CDT Robbie Busby MD [facility] CPT-79812 Level 4 Est. Patient 14:00:21 CDT Robbie Busby MD [facility] CPT-03956 Level 4 Est. Patient 12:46:48 CDT Robbie Busby MD [facility] CPT-93927 Level 4 Est. Patient 13:34:33 CDT Robbie Busby MD [facility] CPT-10051 Level 4 Est. Patient 16:58:28 CDT Robbie Busby MD [facility] CPT-32689 Level 3 Est. Patient 19:36:53 CDT Alex ALVAREZ [facility] CPT-10015 Level 3 Est. Patient 12:58:15 CDT Robbie Busby MD [facility] Procedures Code Procedure Name Date Entry Date Standard Description CPT-41938 Venipuncture Draw Fee 13:07:17 CDT CPT-G0008 Administration of Influenza Virus Vaccine 16:09:59 CDT CPT-16521 Fluzone Quadrivalent Intramuscular Suspension 0.5 ML 16: 09:59 CDT CPT-03114 Spec Collection and Handling Fee 15:05:50 CDT
--- OUTSIDE RECORDS SUMMARY | 2018-04-18 10:39 | XMS REPORT | Clinical Summary ---
Author Author Admin, [place] Organization [employer] Address Unknown Phone Unavailable Allergies, Adverse Reactions, [...] 1 tab by mouth twice daily TRIMETHOPRIM-SULFAMETHOXAZOLE 54284299081 No Longer Active Robbie Busby MD Active SPIRONOLACTONE 25 MG TAB 4 tablets by mouth daily SPIRONOLACTONE 73509233213 Active Robbie Busby MD Active HYDRALAZINE HCL 50 MG ORAL TABS TWO BY MOUTH THREE TIMES DAILY HYDRALAZINE HCL 50757047013 No Longer Active 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 ARABIC TRANSLATOR Active HYDROCODONE-ACETAMINOPHEN 5-325 MG TABS 1 tab by mouth BID prn back pain 2013 HYDROCODONE-ACETAMINOPHEN 76963501408 No Longer Active 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 ARABIC TRANSLATOR Active HYDROCHLOROTHIAZIDE TABS Take one by mouth daily HYDROCHLOROTHIAZIDE TABS 24234054930 No Longer Active 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 ARABIC TRANSLATOR Active LAMISIL 125 MG ORAL PACK 1 TAB PO DAILY TERBINAFINE HCL 49460568661 No Longer Active 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 ARABIC TRANSLATOR Active TRILEPTAL 150 MG ORAL TABS 1 TAB PO Q HS OXCARBAZEPINE 57250680382 No Longer Active 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 ARABIC TRANSLATOR Active BETADINE 10 % EXT SOLN 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 POVIDONE-IODINE 29037541913 No Longer Active 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 ARABIC TRANSLATOR Active NYSTATIN 079748 UNIT/ML M/T SUSP 5mL po QID x 10 days NYSTATIN 94124787230 No Longer Active Erin Garsia APRN Active PREDNISONE 20 MG TAB 1 tablet twice daily for 2 days, then 1 tablet once daily for 2 days PREDNISONE 77224753017 No Longer Active Robbie Busby MD Active CEFDINIR 300 MG ORAL CAPS Take 1 cap po bid x 10 days CEFDINIR 05601768766 No Longer Active Robbie Busby MD Active AMLODIPINE BESYLATE 10 MG TABS 1 tablet by mouth daily AMLODIPINE BESYLATE 44314353331 Active Robbie Busby MD Active CARVEDILOL 25 MG TABS 1 & 1/2 TAB po BID CARVEDILOL 87506749552 Active Robbie Busby MD Active VITAMIN D3 44710 UNIT CAPS 2 CAPS PO WEEKLY CHOLECALCIFEROL 45048666089 Active Erin Garsia APRN Active NEXIUM 40 MG CPDR 1 cap by mouth daily ESOMEPRAZOLE MAGNESIUM 40826188101 Active Gali Negro Active PROTONIX 40 MG SOLR 1 po qday for acid reflux PANTOPRAZOLE SODIUM 35234981086 No Longer Active Galileonila Torresjuan carlos Active KEFLEX 500 MG CAP 1 po TID x 10 days CEPHALEXIN 15144811096 No Longer Active Robbie Busby MD Active FIORICET 50-300-40 MG ORAL CAPS take 1 tab po qday prn migraines. [id number] 41010755150 Active Robbie Busby MD Active TOPIRAMATE 50 MG ORAL TABS take 1 tab po BID for migraines. TOPIRAMATE 16213851819 Active Robbie Busby MD Active MECLIZINE HCL 25 MG TAB one 4 times a day as needed for dizziness MECLIZINE HCL 78196852129 Active Robbie Busby MD Active TEMAZEPAM 15 MG ORAL CAPS 1 TAB PO Q HS TEMAZEPAM 46844631667 Active Robbie Busby MD Active ALPRAZOLAM 2 MG ORAL TABS 1 TAB PO BID ALPRAZOLAM 75079408929 Active Robbie Busby MD Active FENOFIBRATE 145 MG TABS Take one by mouth daily FENOFIBRATE 36350857159 No Longer Active Robbie Busby MD Active SPIRONOLACTONE 50 MG TABS 1 tablet by mouth twice a day SPIRONOLACTONE 53090201379 No Longer Active Robbie Busby MD Active HYDRALAZINE HCL 25 MG TABS 1 tablet by mouth tid for hypertension HYDRALAZINE HCL 54587111421 No Longer Active Robbie Busby MD Active VIIBRYD 40 MG TABS take 1 tab po qday for depression. VILAZODONE HCL 89171586968 No Longer Active Robbie Busby MD Active TERBINAFINE HCL 250 MG TABS 1 tab po qday for foot infection 2014 TERBINAFINE HCL 88820848572 No Longer Active Robbie Busby MD Active GABAPENTIN 300 MG CAPS 1 po q hs for nerve pain GABAPENTIN 98705656907 Active Robbie Busby MD Active FLONASE 50 MCG/ACT SUSP 1 spray each nostril twice daily for allergies and runny nose FLUTICASONE PROPIONATE 56239772891 Active Robbie Busby MD Active CHERATUSSIN AC 100-10 MG/5ML ORAL SOLN 7.5 mL PO q 4-6 hrs PRN cough GUAIFENESIN-CODEINE 40642691505 No Longer Active Robbie Busby MD Active AZITHROMYCIN 250 MG ORAL TABS 2 tablets PO today---then, 1 tablet PO daily x 4 more days (and 1 optional refill) AZITHROMYCIN 94799171665 No Longer Active Robbie Busby MD Active CLONIDINE HCL 0.2 MG ORAL TABS 1 TAB BY MOUTH EVERY 8 HOURS CLONIDINE HCL 75239875865 Active Robbie Busby MD Active NORVASC 10 MG TAB 1 tablet by mouth daily AMLODIPINE BESYLATE 41119977260 No Longer Active Alex ALVAREZ Active IMDUR 60 MG TAB CR take 1 tab po qday for blood pressure ISOSORBIDE MONONITRATE Active Robbie Busby MD Active ISOSORBIDE DINITRATE 30 MG TABS Take one by mouth daily ISOSORBIDE DINITRATE 79425043099 No Longer Active Robbie Busby MD Active VIIBRYD 40 MG TABS 1 TA B PO DAILY VILAZODONE HCL 64810980340 Active Robbie Busby MD Active LORATADINE 10 MG TABS 1 tablet by mouth daily for congestion and allergies. LORATADINE 99762969164 Active Robbie Busby MD Active ZITHROMAX 250 MG TAB 2 po today, then 1 po q days 2-5 AZITHROMYCIN 34983422531 No Longer Active Robbie Busby MD Active [id number] 0.3 MG/24HR PTWK apply 2 patches q week for HTN CLONIDINE HCL 85235073103 Active Robbie Busby MD Active NITROSTAT 0.4 MG SUBL PRN NITROGLYCERIN 32009461352 Active Robbie Busby MD Active DOXAZOSIN MESYLATE 4 MG TABS Take one by mouth daily DOXAZOSIN MESYLATE 91749232379 Active Robbie Busby MD Active TOPROL XL 200 MG [id number] Take one by mouth daily METOPROLOL SUCCINATE 00431379911 Active Robbie Busby MD Active VENLAFAXINE HCL ER 150 MG [id number] Take one by mouth daily VENLAFAXINE HCL 31743458972 Active Robbie Busby MD Active LIPITOR 40 MG TABS Take one by mouth daily ATORVASTATIN CALCIUM 08764374710 Active Robbie Busby MD Active ISOSORBIDE DINITRATE 30 MG TABS Take one by mouth daily ISOSORBIDE DINITRATE 30 MG TABS 650381 ISOSORBIDE DINITRATE Inactive NORVASC 10 MG TAB 1 tablet by mouth daily NORVASC 10 MG TAB 127180 AMLODIPINE BESYLATE Inactive AZITHROMYCIN 250 MG ORAL TABS 2 tablets PO today---then, 1 tablet PO daily x 4 more days (and 1 optional refill) AZITHROMYCIN 250 MG ORAL TABS 8760918 AZITHROMYCIN Inactive CHERATUSSIN AC 100-10 MG/5ML ORAL SOLN 7.5 mL PO q 4-6 hrs PRN cough CHERATUSSIN AC 100-10 MG/5ML ORAL SOLN 433908 GUAIFENESIN- CODEINE Inactive VIIBRYD 40 MG TABS take 1 tab po qday for depression. VIIBRYD 40 MG TABS VILAZODONE HCL Inactive HYDRALAZINE HCL 25 MG TABS 1 tablet by mouth tid for hypertension HYDRALAZINE HCL 25 MG TABS 380615 HYDRALAZINE HCL Inactive SPIRONOLACTONE 50 MG TABS 1 tablet by mouth twice a day SPIRONOLACTONE 50 MG TABS 071633 SPIRONOLACTONE Inactive FENOFIBRATE 145 MG TABS Take one by mouth daily FENOFIBRATE 145 MG TABS 585074 FENOFIBRATE Inactive PROTONIX 40 MG SOLR 1 po qday for acid reflux PROTONIX 40 MG SOLR 552904 PANTOPRAZOLE SODIUM Inactive CEFDINIR 300 MG ORAL CAPS Take 1 cap po bid x 10 days CEFDINIR 300 MG ORAL CAPS 860264 CEFDINIR Inactive PREDNISONE 20 MG TAB 1 tablet twice daily for 2 days, then 1 tablet once daily for 2 days PREDNISONE 20 MG TAB 374968 PREDNISONE Inactive NYSTATIN 830881 UNIT/ML M/T SUSP 5mL po QID x 10 days NYSTATIN 325175 UNIT/ML M/T SUSP 756996 NYSTATIN Inactive BETADINE 10 % EXT SOLN 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 BETADINE 10 % EXT SOLN 6445897 POVIDONE-IODINE Inactive TRILEPTAL 150 MG ORAL TABS 1 TAB PO Q HS TRILEPTAL 150 MG ORAL TABS 016455 OXCARBAZEPINE Inactive LAMISIL 125 MG ORAL PACK 1 TAB PO DAILY LAMISIL 125 MG ORAL PACK TERBINAFINE HCL Inactive HYDROCHLOROTHIAZIDE TABS Take one by mouth daily HYDROCHLOROTHIAZIDE TABS HYDROCHLOROTHIAZIDE TABS Inactive HYDROCODONE-ACETAMINOPHEN 5-325 MG TABS 1 tab by mouth BID prn back pain 2013 HYDROCODONE-ACETAMINOPHEN 5-325 MG TABS 783752 HYDROCODONE -ACETAMINOPHEN Inactive HYDRALAZINE HCL 50 MG ORAL TABS TWO BY MOUTH THREE TIMES DAILY HYDRALAZINE HCL 50 MG ORAL TABS 453827 HYDRALAZINE HCL Inactive ZITHROMAX 250 MG TAB 2 po today, then 1 po q days 2-5 ZITHROMAX 250 MG TAB 6538166 AZITHROMYCIN Inactive TERBINAFINE HCL 250 MG TABS 1 tab po qday for foot infection 2014 TERBINAFINE HCL 250 MG TABS 054429 TERBINAFINE HCL Inactive KEFLEX 500 MG CAP 1 po TID x 10 days KEFLEX 500 MG CAP 152448 CEPHALEXIN Inactive BACTRIM DS 800-160 MG TAB 1 tab by mouth twice daily BACTRIM DS 800-160 MG TAB 814081 TRIMETHOPRIM-SULFAMETHOXAZOLE Inactive Advance Directives Directive Description Start [...] Acid - Chemistry sodium, serum 139 mmol/L 937-224 7376/04/22 carbon dioxide, venous blood 29.4 mmol/L 21.0-32.0 [...] to Follow Negative Lab Report: VITAMIN D, 25-HYDROXY/01879 - Chemistry vitamin D 25-hydroxy, serum 23 ng/mL 30-100 Encounters Code Encounter Date Provider Facility [facility]-[id number] Level 3 Est. Patient 09:16:37 CDT Robbie Busby MD [facility] CPT-88435 Level 3 Est. Patient 19:38:43 CDT Robbie Busby MD [facility]-84055 Level 3 Est. Patient 11:53:38 CDT Robbie Busby MD [facility]-54738 Level 4 Est. Patient 12:52:22 CDT Rober Rodríguez APRN [facility] CPT-38393 Level 4 Est. Patient 22:55:17 CDT Robbie Busby MD [facility] CPT-54421 Level 3 Est. Patient 12:38:24 CDT Desmond Diaz DO [facility] CPT-60562 Level 4 Est. 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 Patient 14:50:10 CDT Robbie Busby MD [facility] CPT-77637 Level 4 Est. Patient 23:30:43 CDT Robbie Busby MD [facility] CPT-69572 Level 4 Est. Patient 10:30:43 CDT Robbie Busby MD [facility] CPT-64426 Level 3 Est. Patient 17:08:12 CDT Alex ALVAREZ [facility] CPT-58168 Level 4 Est. Patient 17:51:38 CDT Robbie Busby MD [facility] CPT-56048 Level 4 Est. Patient 14:00:21 CDT Robbie Busby MD [facility] CPT-33697 Level 4 Est. Patient 12:46:48 CDT Robbie Busby MD [facility] CPT-90053 Level 4 Est. Patient 13:34:33 CDT Robbie Busby MD [facility] CPT-04023 Level 4 Est. Patient 16:58:28 CDT Robbie Busby MD [facility] CPT-05285 Level 3 Est. Patient 19:36:53 CDT Alex ALVAREZ [facility] CPT-67449 Level 3 Est. Patient 12:58:15 CDT Robbie Busby MD [facility] Procedures Code Procedure Name Date Entry Date Standard Description CPT-95976 Wound Culture - LAB USE ONLY 14:00:21 CDT CPT-I/D I/D Abscess 09:16:37 CDT CPT-14861 Venipuncture Draw Fee 15:20:23 CDT CPT-92737 Microalbumin - LAB USE ONLY 16:02:19 CDT CPT-11824 CBC - LAB USE ONLY 16:02:19 CDT CPT-43557 Venipuncture Draw Fee 16:02:19 CDT CPT-G0438 Initial Annual Wellness Exam 08:10:28 CDT CPT-04067 Venipuncture Draw Fee 13:07:17 CDT CPT-G0008 Administration of Influenza Virus Vaccine 16:09:59 CDT CPT-49564 Fluzone Quadrivalent Intramuscular Suspension 0.5 ML 16: 09:59 CDT CPT-69932 Spec Collection and Handling Fee 15:05:50 CDT
--- OUTSIDE RECORDS SUMMARY | 2018-04-18 10:40 | XMS REPORT | Clinical Summary ---
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 Rober Rodríguez [employer] Other malignant secondary hypertension Tachycardia 785.0 Active Andrellld Rodríguez APRN Tachycardia, unspecified Insect bite, infected [...] Active Erin Garsia APRN Other testicular hypofunction Medication List Medication Instructions Start Date Stop Date Generic Name NDC Status Provider Patient Instruction DEPO-TESTOSTERONE 200 MG/ML IM SOLN 1 IM Injections every 2 weeks for low testosterone TESTOSTERONE CYPIONATE 06051658250 Active Zulema Blank LPN Active CYCLOBENZAPRINE HCL 10 MG ORAL TABS 1 po TID PRN muscle spasm/pain for 10 days CYCLOBENZAPRINE HCL 00922789285 Active JONATHAN Moncada Active GUAIFENESIN 600 MG [id number] 1 tab po q am GUAIFENESIN 07174561088 Active Jillina Anne GONZALEZN Active FLUTICASONE PROPIONATE 50 MCG/ACT SUSP 2 sprays per nostril bid for 1 week, then 1 spray bid FLUTICASONE PROPIONATE 07535250617 Active Jillina Anne GONZALEZN Active HYDRALAZINE HCL 25 MG ORAL TABS Take 1 tab BID. HYDRALAZINE HCL 02405854767 Active Jillina Anne GONZALEZN Active VITAMIN D3 12606 UNIT ORAL TABS 2 po weekly CHOLECALCIFEROL 88301496937 Active Robbie Busby MD Active OXYCODONE HCL ER 10 MG ORAL T12A 1 tab po 3 times qd. OXYCODONE HCL 68284832314 Active Robbie Busby MD Active NITROSTAT 0.4 MG SUBL PRN NITROGLYCERIN 28406844774 No Longer Active Robbie Busby MD Active LORATADINE 10 MG TABS 1 tablet by mouth daily for congestion and allergies. LORATADINE 24722094361 No Longer Active Robbie Busby MD Active FLONASE 50 MCG/ACT SUSP 1 spray each nostril twice daily for allergies and runny nose FLUTICASONE PROPIONATE 63170553969 No Longer Active Robbie Busby MD Active FIORICET 50-300-40 MG ORAL CAPS take 1 tab po qday prn migraines. [id number] 93331285567 No Longer Active Robbie Busby MD Active VITAMIN D3 28175 UNIT CAPS 2 CAPS PO WEEKLY CHOLECALCIFEROL 08326344410 No Longer Active Robbie Busby MD Active CYCLOBENZAPRINE HCL 10 MG TABS 1 tablet by mouth three times daily as needed for muscle spasm/pain for 10 days CYCLOBENZAPRINE HCL 32564358950 No Longer Active Robbie Busby MD Active PREDNISONE 20 MG TAB take 3 tabs daily for 3 days, 2 tabs daily for 3 days, 1 tab daily for 3 days, 1/2 tab daily for 4 days PREDNISONE 25267153927 No Longer Active Erin Garsia APRN Active CLONIDINE HCL 0.2 MG ORAL TABS 1 TAB BY MOUTH EVERY 8 HOURS 12/29 CLONIDINE HCL 50375475292 No Longer Active Erin Garsia APRN Active MECLIZINE HCL 25 MG TAB one 4 times a day as needed for dizziness MECLIZINE HCL 47232440839 No Longer Active Erin Garsia APRN Active SPIRONOLACTONE 25 MG TAB 4 tablets by mouth daily SPIRONOLACTONE 07893467000 No Longer Active Erin Garsia APRN Active LEVAQUIN 500 MG TAB 1 tablet by mouth daily for 7 days LEVOFLOXACIN 32746076976 No Longer Active Erin Garsia APRN Active BACTRIM DS 800-160 MG TAB 1 tab by mouth twice daily TRIMETHOPRIM-SULFAMETHOXAZOLE 15557283181 No Longer Active Robbie Busby MD Active HYDRALAZINE HCL 50 MG ORAL TABS TWO BY MOUTH THREE TIMES DAILY HYDRALAZINE HCL 60906408903 No Longer Active Andrellina Anne GONZALEZN Active HYDROCODONE-ACETAMINOPHEN 5-325 MG TABS 1 tab by mouth BID prn back pain 2013 HYDROCODONE-ACETAMINOPHEN 66621300026 No Longer Active 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 [employer] Active HYDROCHLOROTHIAZIDE TABS Take one by mouth daily HYDROCHLOROTHIAZIDE TABS 95752821971 No Longer Active 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 [employer] Active LAMISIL 125 MG ORAL PACK 1 TAB PO DAILY TERBINAFINE HCL 94066380267 No Longer Active 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 [employer] Active TRILEPTAL 150 MG ORAL TABS 1 TAB PO Q HS OXCARBAZEPINE 56798571204 No Longer Active 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 [employer] Active BETADINE 10 % EXT SOLN 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 POVIDONE-IODINE 43912516020 No Longer Active 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 [employer] Active NYSTATIN 613773 UNIT/ML M/T SUSP 5mL po QID x 10 days NYSTATIN 27479464660 No Longer Active Erin Garsia APRN Active PREDNISONE 20 MG TAB 1 tablet twice daily for 2 days, then 1 tablet once daily for 2 days PREDNISONE 04722792739 No Longer Active Robbie Busby MD Active CEFDINIR 300 MG ORAL CAPS Take 1 cap po bid x 10 days CEFDINIR 88606889317 No Longer Active Robbie Busby MD Active AMLODIPINE BESYLATE 10 MG TABS 1 tablet by mouth daily AMLODIPINE BESYLATE 76410391381 Active Robbie Busby MD Active CARVEDILOL 25 MG TABS 1 & 1/2 TAB po BID CARVEDILOL 61130899031 Active Robbie Busby MD Active NEXIUM 40 MG CPDR 1 cap by mouth daily ESOMEPRAZOLE MAGNESIUM 13819168259 Active Robbie Busby MD Active PROTONIX 40 MG SOLR 1 po qday for acid reflux PANTOPRAZOLE SODIUM 80219332498 No Longer Active Gali Raida Active KEFLEX 500 MG CAP 1 po TID x 10 days CEPHALEXIN 01427394717 No Longer Active Robbie Busby MD Active TOPIRAMATE 50 MG ORAL TABS take 1 tab po BID for migraines. TOPIRAMATE 80725655638 Active Robbie Busby MD Active TEMAZEPAM 15 MG ORAL CAPS 1 TAB PO Q HS TEMAZEPAM 71354366492 Active Robbie Busby MD Active ALPRAZOLAM 2 MG ORAL TABS 1 TAB PO BID ALPRAZOLAM 23783651239 Active Robbie Busby MD Active FENOFIBRATE 145 MG TABS Take one by mouth daily FENOFIBRATE 29056973124 No Longer Active Robbie Busby MD Active SPIRONOLACTONE 50 MG TABS 1 tablet by mouth twice a day SPIRONOLACTONE 38189691244 No Longer Active Robbie Busby MD Active HYDRALAZINE HCL 25 MG TABS 1 tablet by mouth tid for hypertension HYDRALAZINE HCL 09917011504 No Longer Active Robbie Busby MD Active VIIBRYD 40 MG TABS take 1 tab po qday for depression. VILAZODONE HCL 73850410252 No Longer Active Robbie Busby MD Active TERBINAFINE HCL 250 MG TABS 1 tab po qday for foot infection 2014 TERBINAFINE HCL 48948772392 No Longer Active Robbie Busby MD Active GABAPENTIN 300 MG CAPS 1 po q hs for nerve pain GABAPENTIN 09471043146 Active Robbie Busby MD Active CHERATUSSIN AC 100-10 MG/5ML ORAL SOLN 7.5 mL PO q 4-6 hrs PRN cough GUAIFENESIN-CODEINE 59285680945 No Longer Active Robbie Busby MD Active AZITHROMYCIN 250 MG ORAL TABS 2 tablets PO today---then, 1 tablet PO daily x 4 more days (and 1 optional refill) AZITHROMYCIN 48214923429 No Longer Active Robbie Busby MD Active NORVASC 10 MG TAB 1 tablet by mouth daily AMLODIPINE BESYLATE 76309117339 No Longer Active Alex ALVAREZ Active IMDUR 60 MG TAB CR take 1 tab po qday for blood pressure ISOSORBIDE MONONITRATE Active Robbie Busby MD Active ISOSORBIDE DINITRATE 30 MG TABS Take one by mouth daily ISOSORBIDE DINITRATE 29174920903 No Longer Active Robbie Busby MD Active VIIBRYD 40 MG TABS 1 TA B PO DAILY VILAZODONE HCL 73209240725 Active Robbie Busby MD Active ZITHROMAX 250 MG TAB 2 po today, then 1 po q days 2-5 AZITHROMYCIN 57344559573 No Longer Active Robbie Busby MD Active [id number]-6 0.3 MG/24HR PTWK apply 2 patches q week for HTN CLONIDINE HCL 66363277262 Active Robbie Busby MD Active DOXAZOSIN MESYLATE 4 MG TABS Take one by mouth daily DOXAZOSIN MESYLATE 78170068867 Active Robbie Busby MD Active TOPROL XL 200 MG [id number] Take one by mouth daily METOPROLOL SUCCINATE 38019799756 Active Robbie Busby MD Active VENLAFAXINE HCL ER 150 MG HR07R-MEL Take one by mouth daily VENLAFAXINE HCL 96850541801 Active Robbie Busby MD Active LIPITOR 40 MG TABS Take one by mouth daily ATORVASTATIN CALCIUM 13252710226 Active Robbie Busby MD Active ISOSORBIDE DINITRATE 30 MG TABS Take one by mouth daily ISOSORBIDE DINITRATE 30 MG TABS 509111 ISOSORBIDE DINITRATE Inactive NORVASC 10 MG TAB 1 tablet by mouth daily NORVASC 10 MG TAB 758907 AMLODIPINE BESYLATE Inactive AZITHROMYCIN 250 MG ORAL TABS 2 tablets PO today---then, 1 tablet PO daily x 4 more days (and 1 optional refill) AZITHROMYCIN 250 MG ORAL TABS 0782343 AZITHROMYCIN Inactive CHERATUSSIN AC 100-10 MG/5ML ORAL SOLN 7.5 mL PO q 4-6 hrs PRN cough CHERATUSSIN AC 100-10 MG/5ML ORAL SOLN 012435 GUAIFENESIN- CODEINE Inactive VIIBRYD 40 MG TABS take 1 tab po qday for depression. VIIBRYD 40 MG TABS VILAZODONE HCL Inactive HYDRALAZINE HCL 25 MG TABS 1 tablet by mouth tid for hypertension HYDRALAZINE HCL 25 MG TABS 441387 HYDRALAZINE HCL Inactive SPIRONOLACTONE 50 MG TABS 1 tablet by mouth twice a day SPIRONOLACTONE 50 MG TABS 306358 SPIRONOLACTONE Inactive FENOFIBRATE 145 MG TABS Take one by mouth daily FENOFIBRATE 145 MG TABS 713924 FENOFIBRATE Inactive PROTONIX 40 MG SOLR 1 po qday for acid reflux PROTONIX 40 MG SOLR 042474 PANTOPRAZOLE SODIUM Inactive CEFDINIR 300 MG ORAL CAPS Take 1 cap po bid x 10 days CEFDINIR 300 MG ORAL CAPS 021836 CEFDINIR Inactive PREDNISONE 20 MG TAB 1 tablet twice daily for 2 days, then 1 tablet once daily for 2 days PREDNISONE 20 MG TAB 265590 PREDNISONE Inactive NYSTATIN 579966 UNIT/ML M/T SUSP 5mL po QID x 10 days NYSTATIN 100851 UNIT/ML M/T SUSP 213535 NYSTATIN Inactive BETADINE 10 % EXT SOLN 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 BETADINE 10 % EXT SOLN 5339694 POVIDONE-IODINE Inactive TRILEPTAL 150 MG ORAL TABS 1 TAB PO Q HS TRILEPTAL 150 MG ORAL TABS 720459 OXCARBAZEPINE Inactive LAMISIL 125 MG ORAL PACK 1 TAB PO DAILY LAMISIL 125 MG ORAL PACK TERBINAFINE HCL Inactive HYDROCHLOROTHIAZIDE TABS Take one by mouth daily HYDROCHLOROTHIAZIDE TABS HYDROCHLOROTHIAZIDE TABS Inactive HYDROCODONE-ACETAMINOPHEN 5-325 MG TABS 1 tab by mouth BID prn back pain 2013 HYDROCODONE-ACETAMINOPHEN 5-325 MG TABS 418037 HYDROCODONE -ACETAMINOPHEN Inactive HYDRALAZINE HCL 50 MG ORAL TABS TWO BY MOUTH THREE TIMES DAILY HYDRALAZINE HCL 50 MG ORAL TABS 319290 HYDRALAZINE HCL Inactive LEVAQUIN 500 MG TAB 1 tablet by mouth daily for 7 days LEVAQUIN 500 MG TAB 568871 LEVOFLOXACIN Inactive SPIRONOLACTONE 25 MG TAB 4 tablets by mouth daily SPIRONOLACTONE 25 MG TAB 830114 SPIRONOLACTONE Inactive MECLIZINE HCL 25 MG TAB one 4 times a day as needed for dizziness MECLIZINE HCL 25 MG TAB 736466 MECLIZINE HCL Inactive CLONIDINE HCL 0.2 MG ORAL TABS 1 TAB BY MOUTH EVERY 8 HOURS 12/29 CLONIDINE HCL 0.2 MG ORAL TABS 375074 CLONIDINE HCL Inactive CYCLOBENZAPRINE HCL 10 MG TABS 1 tablet by mouth three times daily as needed for muscle spasm/pain for 10 days CYCLOBENZAPRINE HCL 10 MG TABS 191077 CYCLOBENZAPRINE HCL Inactive VITAMIN D3 15793 UNIT CAPS 2 CAPS PO WEEKLY VITAMIN D3 16509 UNIT CAPS CHOLECALCIFEROL Inactive FIORICET 50-300-40 MG ORAL CAPS take 1 tab po qday prn migraines. FIORICET 50-300-40 MG ORAL CAPS 326697 [id number] Inactive FLONASE 50 MCG/ACT SUSP 1 spray each nostril twice daily for allergies and runny nose FLONASE 50 MCG/ACT SUSP 5642296 FLUTICASONE PROPIONATE Inactive LORATADINE 10 MG TABS 1 tablet by mouth daily for congestion and allergies. LORATADINE 10 MG TABS 774243 LORATADINE Inactive NITROSTAT 0.4 MG SUBL PRN NITROSTAT 0.4 MG SUBL 015811 NITROGLYCERIN Inactive ZITHROMAX 250 MG TAB 2 po today, then 1 po q days 2-5 ZITHROMAX 250 MG TAB 2367594 AZITHROMYCIN Inactive TERBINAFINE HCL 250 MG TABS 1 tab po qday for foot infection 2014 TERBINAFINE HCL 250 MG TABS 809292 TERBINAFINE HCL Inactive KEFLEX 500 MG CAP 1 po TID x 10 days KEFLEX 500 MG CAP 478709 CEPHALEXIN Inactive BACTRIM DS 800-160 MG TAB 1 tab by mouth twice daily BACTRIM DS 800-160 MG TAB 737445 TRIMETHOPRIM-SULFAMETHOXAZOLE Inactive PREDNISONE 20 MG TAB take 3 tabs daily for 3 days, 2 tabs daily for 3 days, 1 tab daily for 3 days, 1/2 tab daily for 4 days PREDNISONE 20 MG TAB 689237 PREDNISONE Inactive Advance Directives Directive Description Start Date DISCUSSED WITH PATIENT -- NO DECISION MADE Vital Signs Date Name Value Unit Range Description blood pressure, diastolic 108 mm[Hg] BP del [...] AUTO - Chemistry sodium, serum 142 mmol/L 451-262 2731/07/17 carbon dioxide, venous blood 28.2 mmol/L 21.0-32.0 [...] % 11.0-15.0 platelet count 185 THOUSAND/UL 10*3/mm3 644-725 1476/04/14 mean platelet volume 10.9 fL 7.5-12.5 Lab Report: LIPID PANEL, TSH/899, T4, FREE/866 - Chemistry cholesterol, serum 220 mg/dL 311-634 1849/04/14 HDL cholesterol, serum 30 mg/dL > OR=40 [...] 1.80 ng/mL 0.00-4.00 Lab Report: VITAMIN D, 25-HYDROXY/85639 - Chemistry vitamin D 25-hydroxy, serum 25 ng/mL 30-100 Office Visit: Confusion, dizziness after fall - Basic LDL target level 130 mg/dL Office Visit: Confusion, dizziness after fall - Chemistry HDL cholesterol, serum, target level 40 mg/dL triglyceride, target level 150 mg/dL cholesterol, target level 200 mg/dL Encounters Code Encounter Date Provider Facility CPT-46530 Level 4 Est. Patient 15:18:19 CDT Robbie Busby MD [facility] CPT-58650 Level 3 Est. Patient 09:00:37 CDT Rober Rodríguez [facility] CPT-33415 Level 3 Est. Patient 16:07:10 CDT Robbie Busby MD [facility] CPT-79826 Level 4 Est. Patient 11:56:16 CDT Erin Garsia [facility] CPT-02563 Level 3 Est. Patient 17:48:02 CDT Robbie Busby MD [facility] CPT-05885 Level 4 Est. Patient 12:00:49 [employer] Rober Rodríguez [facility] CPT-27297 Level 3 Est. Patient 09:16:37 CDT Robbie Busby MD [facility] CPT-75614 Level 3 Est. Patient 19:38:43 CDT Robbie Busby MD [facility] CPT-02099 Level 3 Est. Patient 11:53:38 CDT Robbie Busby MD [facility] CPT-05485 Level 4 Est. Patient 12:52:22 CDT Rober Rodríguez [facility] CPT-15548 Level 4 Est. Patient 22:55:17 CDT Robbie Busby MD [facility] CPT-83565 Level 3 Est. Patient 12:38:24 CDT Desmond Diaz DO [facility] CPT-34095 Level 4 Est. Patient 11:25:03 [employer] Robbie Busby MD [facility] CPT-90922 Level 4 Est. Patient 14:50:10 CDT Robbie Busby MD [facility] CPT-61230 Level 4 Est. Patient 23:30:43 CDT Robbie Busby MD [facility] CPT-74670 Level 4 Est. Patient 10:30:43 CDT Robbie Busby MD [facility] CPT-96664 Level 3 Est. Patient 17:08:12 CDT Alex ALVAREZ [facility] CPT-91412 Level 4 Est. Patient 17:51:38 CDT Robbie Busby MD [facility] CPT-26394 Level 4 Est. Patient 14:00:21 CDT Robbie Busby MD [facility] CPT-14629 Level 4 Est. Patient 12:46:48 CDT Robbie Busby MD [facility] CPT-38441 Level 4 Est. Patient 13:34:33 CDT Robbie Busby MD [facility] CPT-02561 Level 4 Est. Patient 16:58:28 CDT Robbie Busby MD [facility] CPT-66995 Level 3 Est. Patient 19:36:53 CDT Alex ALVAREZ [facility] CPT-04950 Level 3 Est. Patient 12:58:15 CDT Robbie Busby MD [facility] Procedures Code Procedure Name Date Entry Date Standard Description CPT-J1071 Depo Testosterone 200mg 09:03:53 CDT CPT-82649 Abx/Therapy Injection 09:03:53 CDT CPT-G0439 [facility] Annual Wellness Exam 16:47:44 CDT CPT-J1071 Depo Testosterone 200mg 09:06:28 CDT CPT-87687 Abx/Therapy Injection 09:06:28 CDT CPT-J1071 Depo Testosterone 200mg 08:30:01 CDT CPT-80431 Abx/Therapy Injection 08:30:01 CDT CPT-J1071 Depo Testosterone 200mg 08:24:00 CDT CPT-45283 Abx/Therapy Injection 08:24:00 CDT CPT-91148 Venipuncture Draw Fee 14:39:06 CDT CPT-37714 Ribs unilateral 2V - XRAY USE ONLY 12:10:11 CDT CPT-14933 First Vx - Ix admin for Medicare patients 16:32:53 CDT CPT-31425 Boostrix Intramuscular Suspension 5-2.5-18.5 16:32:53 CDT CPT-80190 TB Skin Test 11:42:28 CDT CPT-74521 Tdap 7yrs or > 11:42:28 CDT CPT-J0696 Rocephin 1000 mg (Ceftriaxone) 17:43:43 [employer] CPT-J1040 Depo Medrol 80 mg (Methyl Prednisolone Acetate) 17:43: 43 [employer] CPT-J1100 Decadron 8mg (Dexamethasone) 17:43:42 [employer]ACH[employer] CPT-21592 Abx/Therapy Injection 17:43:42 [employer] EX[employer]ACHINE CPT-39951 Abx/Therapy Injection 17:43:42 [employer] EX[employer]ACHINE CPT-J1040 Depo Medrol 80 mg (Methyl Prednisolone Acetate) 09:43: 34 [employer]ACHINE CPT-J1100 Decadron 8mg (Dexamethasone) 09:43:34 [employer]ACHINE CPT-J0696 Rocephin 1gm Inj Solr 09:43:34 [employer] CPT-36397 Wound Culture - LAB USE ONLY 14:00:21 CDT CPT-I/D I/D Abscess 09:16:37 CDT CPT-30026 Venipuncture Draw Fee 15:20:23 CDT CPT-02779 Microalbumin - LAB USE ONLY 16:02:19 CDT CPT-28728 CBC - LAB USE ONLY 16:02:19 CDT CPT-90812 Venipuncture Draw Fee 16:02:19 CDT CPT-G0438 Initial Annual Wellness Exam 08:10:28 CDT CPT-70536 Venipuncture Draw Fee 13:07:17 CDT CPT-G0008 Administration of Influenza Virus Vaccine 16:09:59 CDT CPT-85220 Fluzone Quadrivalent Intramuscular Suspension 0.5 ML 16: 09:59 CDT CPT-40328 Spec Collection and Handling Fee 15:05:50 CDT
--- OUTSIDE RECORDS SUMMARY | 2018-04-18 10:41 | XMS REPORT | Clinical Summary ---
Author Author Admin, Nicolas Organization [facility] Address Unknown Phone Unavailable Allergies, Adverse Reactions, [...] NDC Status Provider Patient Instruction VITAMIN D3 40651 UNIT CAPS 1 CAP PO WEEKLY CHOLECALCIFEROL 01082026784 Active Vanessa August Active CEFDINIR 300 MG ORAL CAPS Take 1 cap po bid x 10 days CEFDINIR 07073611338 Active Jackie Junior MA Active PREDNISONE 20 MG TAB 1 tablet twice daily for 2 days, then 1 tablet once daily for 2 days PREDNISONE 51155491562 Active Desmond Diaz DO Active NEXIUM 40 MG CPDR 1 cap by mouth daily ESOMEPRAZOLE MAGNESIUM 21777858542 Active Gali Negro Active PROTONIX 40 MG SOLR 1 po qday for acid reflux PANTOPRAZOLE SODIUM 49131815912 No Longer Active Galileonila Negro Active BETADINE 10 % EXT SOLN 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 POVIDONE-IODINE 68881714925 Active Robbie Busby MD Active KEFLEX 500 MG CAP 1 po TID x 10 days CEPHALEXIN 97372301336 No Longer Active Robbie Busby MD Active FIORICET 50-300-40 MG ORAL CAPS take 1 tab po qday prn migraines. [id number] 48006107170 Active Robbie Busby MD Active TOPIRAMATE 50 MG ORAL TABS take 1 tab po BID for migraines. TOPIRAMATE 94976537976 Active Robbie Busby MD Active HYDRALAZINE HCL 50 MG ORAL TABS TWO BY MOUTH THREE TIMES DAILY HYDRALAZINE HCL 96325949024 Active Robbie Busby MD Active MECLIZINE HCL 25 MG TAB one 4 times a day as needed for dizziness MECLIZINE HCL 51977697667 Active Robbie Busby MD Active TRILEPTAL 150 MG ORAL TABS 1 TAB PO Q HS OXCARBAZEPINE 52094254548 Active Robbie Busby MD Active TEMAZEPAM 15 MG ORAL CAPS 1 TAB PO Q HS TEMAZEPAM 33961713856 Active Robbie Busby MD Active ALPRAZOLAM 2 MG ORAL TABS 1 TAB PO BID ALPRAZOLAM 14282945362 Active Robbie Busby MD Active FENOFIBRATE 145 MG TABS Take one by mouth daily FENOFIBRATE 83759432169 No Longer Active Robbie Busby MD Active LAMISIL 125 MG ORAL PACK 1 TAB PO DAILY TERBINAFINE HCL 03441463918 Active Robbie Busby MD Active SPIRONOLACTONE 50 MG TABS 1 tablet by mouth twice a day SPIRONOLACTONE 73106552971 No Longer Active Robbie Busby MD Active HYDRALAZINE HCL 25 MG TABS 1 tablet by mouth tid for hypertension HYDRALAZINE HCL 70124206975 No Longer Active Robbie Busby MD Active VIIBRYD 40 MG TABS take 1 tab po qday for depression. VILAZODONE HCL 98772705097 No Longer Active Robbie Busby MD Active TERBINAFINE HCL 250 MG TABS 1 tab po qday for foot infection 2014 TERBINAFINE HCL 46082720172 No Longer Active Robbie Busby MD Active GABAPENTIN 300 MG CAPS 1 po q hs for nerve pain GABAPENTIN 95452652184 Active Erin Garsia APRN Active FLONASE 50 MCG/ACT SUSP 1 spray each nostril twice daily for allergies and runny nose FLUTICASONE PROPIONATE 30351903282 Active Robbie Busby MD Active CHERATUSSIN AC 100-10 MG/5ML ORAL SOLN 7.5 mL PO q 4-6 hrs PRN cough GUAIFENESIN-CODEINE 38781962424 No Longer Active Robbie Busby MD Active AZITHROMYCIN 250 MG ORAL TABS 2 tablets PO today---then, 1 tablet PO daily x 4 more days (and 1 optional refill) AZITHROMYCIN 74016602169 No Longer Active Robbie Busby MD Active CLONIDINE HCL 0.2 MG ORAL TABS 1 TAB BY MOUTH EVERY 8 HOURS CLONIDINE HCL 50133269553 Active Robbie Busby MD Active HYDROCHLOROTHIAZIDE TABS Take one by mouth daily HYDROCHLOROTHIAZIDE TABS 67411902184 Active Alex ALVAREZ Active NORVASC 10 MG TAB 1 tablet by mouth daily AMLODIPINE BESYLATE 18327091065 No Longer Active Alex ALVAREZ Active IMDUR 60 MG TAB CR take 1 tab po qday for blood pressure ISOSORBIDE MONONITRATE Active Robbie Busby MD Active ISOSORBIDE DINITRATE 30 MG TABS Take one by mouth daily ISOSORBIDE DINITRATE 32362519969 No Longer Active Robbie Busby MD Active VIIBRYD 40 MG TABS 1 TA B PO DAILY VILAZODONE HCL 83758960340 Active Erin Garsia APRN Active LORATADINE 10 MG TABS 1 tablet by mouth daily for congestion and allergies. LORATADINE 87240797894 Active Robbie Busby MD Active ZITHROMAX 250 MG TAB 2 po today, then 1 po q days 2-5 AZITHROMYCIN 03435522133 No Longer Active Robbie Busby MD Active HYDROCODONE-ACETAMINOPHEN 5-325 MG TABS 1 tab by mouth BID prn back pain 2013 HYDROCODONE-ACETAMINOPHEN 05411011948 Active Robbie Busby MD Active [id number] 0.3 MG/24HR PTWK apply 2 patches q week for HTN CLONIDINE HCL 82184449559 Active Robbie Busby MD Active NITROSTAT 0.4 MG SUBL PRN NITROGLYCERIN 02945249351 Active Robbie Busby MD Active DOXAZOSIN MESYLATE 4 MG TABS Take one by mouth daily DOXAZOSIN MESYLATE 56629165307 Active Robbie Busby MD Active TOPROL XL 200 MG [id number] Take one by mouth daily METOPROLOL SUCCINATE 83344135064 Active Robbie Busby MD Active VENLAFAXINE HCL ER 150 MG [id number] Take one by mouth daily VENLAFAXINE HCL 77511025072 Active Robbie Busby MD Active LIPITOR 40 MG TABS Take one by mouth daily ATORVASTATIN CALCIUM 94258169345 Active Robbie Busby MD Active ISOSORBIDE DINITRATE 30 MG TABS Take one by mouth daily ISOSORBIDE DINITRATE 30 MG TABS 499367 ISOSORBIDE DINITRATE Inactive NORVASC 10 MG TAB 1 tablet by mouth daily NORVASC 10 MG TAB 548250 AMLODIPINE BESYLATE Inactive AZITHROMYCIN 250 MG ORAL TABS 2 tablets PO today---then, 1 tablet PO daily x 4 more days (and 1 optional refill) AZITHROMYCIN 250 MG ORAL TABS 7946161 AZITHROMYCIN Inactive CHERATUSSIN AC 100-10 MG/5ML ORAL SOLN 7.5 mL PO q 4-6 hrs PRN cough CHERATUSSIN AC 100-10 MG/5ML ORAL SOLN 000890 GUAIFENESIN- CODEINE Inactive VIIBRYD 40 MG TABS take 1 tab po qday for depression. VIIBRYD 40 MG TABS VILAZODONE HCL Inactive HYDRALAZINE HCL 25 MG TABS 1 tablet by mouth tid for hypertension HYDRALAZINE HCL 25 MG TABS 149509 HYDRALAZINE HCL Inactive SPIRONOLACTONE 50 MG TABS 1 tablet by mouth twice a day SPIRONOLACTONE 50 MG TABS 995647 SPIRONOLACTONE Inactive FENOFIBRATE 145 MG TABS Take one by mouth daily FENOFIBRATE 145 MG TABS 805544 FENOFIBRATE Inactive PROTONIX 40 MG SOLR 1 po qday for acid reflux PROTONIX 40 MG SOLR 071809 PANTOPRAZOLE SODIUM Inactive ZITHROMAX 250 MG TAB 2 po today, then 1 po q days 2-5 ZITHROMAX 250 MG TAB 8573576 AZITHROMYCIN Inactive TERBINAFINE HCL 250 MG TABS 1 tab po qday for foot infection 2014 TERBINAFINE HCL 250 MG TABS 918962 TERBINAFINE HCL Inactive KEFLEX 500 MG CAP 1 po TID x 10 days KEFLEX 500 MG CAP 266047 CEPHALEXIN Inactive Vital Signs Date Name Value [...] Acid - Chemistry sodium, serum 139 mmol/L 784-922 1835/04/22 carbon dioxide, venous blood 29.4 mmol/L 21.0-32.0 [...] Report: Lipid Panel, HEPATIC PANEL - Chemistry LDL cholesterol, serum 100 mg/dL 0-130 HDL cholesterol, serum 25 mg/dL 32-96 triglyceride, serum, fasting 429 mg/dL 30-200 cholesterol, serum 211 mg/dL 163-491 4028/08/31 alanine aminotransferase (SGPT), serum 32 U/L 12-78 bilirubin, serum, total 0.70 mg/dL 0.00-1.00 aspartate aminotransferase (SGOT), serum 19 U/L 15-37 Lab Report: Prostatic Specific Ag - Chemistry prostate specific antigen 1.31 ng/mL 0.00-4.00 Lab Report: RapidStrep Rflx/Cx - Lab Microbial identification kit, rapid strep method Negative-Throat Culture to Follow Negative Encounters Code Encounter Date Provider Facility CPT-82127 Level 3 Est. Patient 12:38:24 CDT Desmond Diaz DO [facility] CPT-04696 Level 4 Est. 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 Patient 14:50:10 CDT Robbie Busby MD [facility] CPT-70451 Level 4 Est. Patient 23:30:43 CDT Robbie Busby MD [facility] CPT-34849 Level 4 Est. Patient 10:30:43 CDT Robbie Busby MD [facility] CPT-27418 Level 3 Est. Patient 17:08:12 CDT Alex ALVAREZ [facility] CPT-95553 Level 4 Est. Patient 17:51:38 CDT Robbie Busby MD [facility] CPT-89472 Level 4 Est. Patient 14:00:21 CDT Robbie Busby MD [facility] CPT-46713 Level 4 Est. Patient 12:46:48 CDT Robbie Busby MD [facility] CPT-40572 Level 4 Est. Patient 13:34:33 CDT Robbie Busby MD [facility] CPT-79959 Level 4 Est. Patient 16:58:28 CDT Robbie Busby MD [facility] CPT-27286 Level 3 Est. Patient 19:36:53 CDT Alex ALVAREZ [facility] CPT-66695 Level 3 Est. Patient 12:58:15 CDT Robbie Busby MD [facility] Procedures Code Procedure Name Date Entry Date Standard Description CPT-88791 Venipuncture Draw Fee 13:07:17 CDT CPT-G0008 Administration of Influenza Virus Vaccine 16:09:59 CDT CPT-55082 Fluzone Quadrivalent Intramuscular Suspension 0.5 ML 16: 09:59 CDT CPT-92129 Spec Collection and Handling Fee 15:05:50 CDT
--- OUTSIDE RECORDS SUMMARY | 2018-04-18 10:41 | XMS REPORT | Clinical Summary ---
Author Author Admin, [facility] Organization [facility] Address Unknown Phone Unavailable Allergies, [...] Generic Name NDC Status Provider Patient Instruction CEFDINIR 300 MG ORAL CAPS Take 1 cap po bid x 10 days CEFDINIR 09728365551 Active Jackie Junior MA Active PREDNISONE 20 MG TAB 1 tablet twice daily for 2 days, then 1 tablet once daily for 2 days PREDNISONE 88394762459 Active Desmond Diaz DO Active NEXIUM 40 MG CPDR 1 cap by mouth daily ESOMEPRAZOLE MAGNESIUM 92752209467 Active Gali Negro Active PROTONIX 40 MG SOLR 1 po qday for acid reflux PANTOPRAZOLE SODIUM 86053217531 No Longer Active Galileonila Negro Active BETADINE 10 % EXT SOLN 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 POVIDONE-IODINE 67092662466 Active Robbie Busby MD Active KEFLEX 500 MG CAP 1 po TID x 10 days CEPHALEXIN 01288484839 No Longer Active Robbie Busby MD Active FIORICET 50-300-40 MG ORAL CAPS take 1 tab po qday prn migraines. [id number] 87141114072 Active Robbie Busby MD Active TOPIRAMATE 50 MG ORAL TABS take 1 tab po BID for migraines. TOPIRAMATE 97602479214 Active Robbie Busby MD Active HYDRALAZINE HCL 50 MG ORAL TABS TWO BY MOUTH THREE TIMES DAILY HYDRALAZINE HCL 96606070570 Active Robbie Busby MD Active MECLIZINE HCL 25 MG TAB one 4 times a day as needed for dizziness MECLIZINE HCL 65501481459 Active Robbie Busby MD Active TRILEPTAL 150 MG ORAL TABS 1 TAB PO Q HS OXCARBAZEPINE 24491288390 Active Robbie Busby MD Active TEMAZEPAM 15 MG ORAL CAPS 1 TAB PO Q HS TEMAZEPAM 56867096948 Active Robbie Busby MD Active ALPRAZOLAM 2 MG ORAL TABS 1 TAB PO BID ALPRAZOLAM 60050872570 Active Robbie Busby MD Active FENOFIBRATE 145 MG TABS Take one by mouth daily FENOFIBRATE 42418492505 No Longer Active Robbie Busby MD Active LAMISIL 125 MG ORAL PACK 1 TAB PO DAILY TERBINAFINE HCL 04111823030 Active Robbie Busby MD Active SPIRONOLACTONE 50 MG TABS 1 tablet by mouth twice a day SPIRONOLACTONE 72601990090 No Longer Active Robbie Busby MD Active HYDRALAZINE HCL 25 MG TABS 1 tablet by mouth tid for hypertension HYDRALAZINE HCL 28156288697 No Longer Active Robbie Busby MD Active VIIBRYD 40 MG TABS take 1 tab po qday for depression. VILAZODONE HCL 84154850494 No Longer Active Robbie Busby MD Active TERBINAFINE HCL 250 MG TABS 1 tab po qday for foot infection 2014 TERBINAFINE HCL 46337821172 No Longer Active Robbie Busby MD Active GABAPENTIN 300 MG CAPS 1 po q hs for nerve pain GABAPENTIN 75224886090 Active Erin Garsia [employer] Active FLONASE 50 MCG/ACT SUSP 1 spray each nostril twice daily for allergies and runny nose FLUTICASONE PROPIONATE 40111786633 Active Robbie Busby MD Active CHERATUSSIN AC 100-10 MG/5ML ORAL SOLN 7.5 mL PO q 4-6 hrs PRN cough GUAIFENESIN-CODEINE 38857416002 No Longer Active Robbie Busby MD Active AZITHROMYCIN 250 MG ORAL TABS 2 tablets PO today---then, 1 tablet PO daily x 4 more days (and 1 optional refill) AZITHROMYCIN 86648202948 No Longer Active Robbie Busby MD Active CLONIDINE HCL 0.2 MG ORAL TABS 1 TAB BY MOUTH EVERY 8 HOURS CLONIDINE HCL 65389952247 Active Robbie Busby MD Active HYDROCHLOROTHIAZIDE TABS Take one by mouth daily HYDROCHLOROTHIAZIDE TABS 71965130653 Active Alex ALVAREZ Active NORVASC 10 MG TAB 1 tablet by mouth daily AMLODIPINE BESYLATE 30943958600 No Longer Active Alex ALVAREZ Active IMDUR 60 MG TAB CR take 1 tab po qday for blood pressure ISOSORBIDE MONONITRATE Active Robibe Busby MD Active ISOSORBIDE DINITRATE 30 MG TABS Take one by mouth daily ISOSORBIDE DINITRATE 24539292190 No Longer Active Robbie Busby MD Active VIIBRYD 40 MG TABS 1 TA B PO DAILY VILAZODONE HCL 51723979283 Active Robbie Busby MD Active LORATADINE 10 MG TABS 1 tablet by mouth daily for congestion and allergies. LORATADINE 98565017069 Active Robbie Busby MD Active ZITHROMAX 250 MG TAB 2 po today, then 1 po q days 2-5 AZITHROMYCIN 29023450452 No Longer Active Robbie Busby MD Active HYDROCODONE-ACETAMINOPHEN 5-325 MG TABS 1 tab by mouth BID prn back pain 2013 HYDROCODONE-ACETAMINOPHEN 12091168313 Active Robbie Busby MD Active [id number]-[id number]-4 0.3 MG/24HR PTWK apply 2 patches q week for HTN CLONIDINE HCL 04725665198 Active Robbie Busby MD Active NITROSTAT 0.4 MG SUBL PRN NITROGLYCERIN 56959089791 Active Robbie Busby MD Active DOXAZOSIN MESYLATE 4 MG TABS Take one by mouth daily DOXAZOSIN MESYLATE 29936217472 Active Robbie Busby MD Active TOPROL XL 200 MG [id number] Take one by mouth daily METOPROLOL SUCCINATE 69610440658 Active Robbie Busby MD Active VENLAFAXINE HCL ER 150 MG [id number] Take one by mouth daily VENLAFAXINE HCL 51786594833 Active Robbie Busby MD Active LIPITOR 40 MG TABS Take one by mouth daily ATORVASTATIN CALCIUM 23308426787 Active Robbie Busby MD Active ISOSORBIDE DINITRATE 30 MG TABS Take one by mouth daily ISOSORBIDE DINITRATE 30 MG TABS 441385 ISOSORBIDE DINITRATE Inactive NORVASC 10 MG TAB 1 tablet by mouth daily NORVASC 10 MG TAB 975827 AMLODIPINE BESYLATE Inactive AZITHROMYCIN 250 MG ORAL TABS 2 tablets PO today---then, 1 tablet PO daily x 4 more days (and 1 optional refill) AZITHROMYCIN 250 MG ORAL TABS 1957327 AZITHROMYCIN Inactive CHERATUSSIN AC 100-10 MG/5ML ORAL SOLN 7.5 mL PO q 4-6 hrs PRN cough CHERATUSSIN AC 100-10 MG/5ML ORAL SOLN 477735 GUAIFENESIN- CODEINE Inactive VIIBRYD 40 MG TABS take 1 tab po qday for depression. VIIBRYD 40 MG TABS VILAZODONE HCL Inactive HYDRALAZINE HCL 25 MG TABS 1 tablet by mouth tid for hypertension HYDRALAZINE HCL 25 MG TABS 899962 HYDRALAZINE HCL Inactive SPIRONOLACTONE 50 MG TABS 1 tablet by mouth twice a day SPIRONOLACTONE 50 MG TABS 638327 SPIRONOLACTONE Inactive FENOFIBRATE 145 MG TABS Take one by mouth daily FENOFIBRATE 145 MG TABS 922726 FENOFIBRATE Inactive PROTONIX 40 MG SOLR 1 po qday for acid reflux PROTONIX 40 MG SOLR PANTOPRAZOLE SODIUM Inactive ZITHROMAX 250 MG TAB 2 po today, then 1 po q days 2-5 ZITHROMAX 250 MG TAB 0958572 AZITHROMYCIN Inactive TERBINAFINE HCL 250 MG TABS 1 tab po qday for foot infection 2014 TERBINAFINE HCL 250 MG TABS 880051 TERBINAFINE HCL Inactive KEFLEX 500 MG CAP 1 po TID x 10 days KEFLEX 500 MG CAP 100538 CEPHALEXIN Inactive Vital Signs Date Name Value [...] Report: Lipid Panel, HEPATIC PANEL - Chemistry alanine aminotransferase (SGPT), serum 32 U/L 12-78 bilirubin, serum, total 0.70 mg/dL 0.00-1.00 aspartate aminotransferase (SGOT), serum 19 U/L 15-37 LDL cholesterol, serum 100 mg/dL 0-130 HDL cholesterol, serum 25 mg/dL 32-96 triglyceride, serum, fasting 429 mg/dL 30-200 cholesterol, serum 211 mg/dL 130-200 Lab Report: Prostatic Specific Ag - Chemistry prostate specific antigen 1.31 ng/mL 0.00-4.00 Lab Report: RapidStrep Rflx/Cx - Lab Microbial identification kit, rapid strep method Negative-Throat Culture to Follow Negative Encounters Code Encounter Date Provider Facility CPT-25166 Level 3 Est. Patient 12:38:24 CDT Desmond Diaz DO [facility] CPT-03738 Level 4 Est. 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 Patient 14:50:10 CDT Robbie Busby MD [facility] CPT-59954 Level 4 Est. Patient 23:30:43 CDT Robbie Busby MD [facility] CPT-73474 Level 4 Est. Patient 10:30:43 CDT Robbie Busby MD [facility] CPT-34570 Level 3 Est. Patient 17:08:12 CDT Alex Shaw [facility] CPT-71800 Level 4 Est. Patient 17:51:38 CDT Robbie Busby MD [facility] CPT-14959 Level 4 Est. Patient 14:00:21 CDT Robbie Busby MD [facility] CPT-41435 Level 4 Est. Patient 12:46:48 CDT Robbie Busby MD [facility] CPT-81446 Level 4 Est. Patient 13:34:33 CDT Robbie Busby MD [facility] CPT-87015 Level 4 Est. Patient 16:58:28 CDT Robbie Busby MD [facility] CPT-97938 Level 3 Est. Patient 19:36:53 CDT Alex ALVAREZ [facility] CPT-84500 Level 3 Est. Patient 12:58:15 CDT Robbie Busby MD [facility] Procedures Code Procedure Name Date Entry Date Standard Description CPT-62460 Venipuncture Draw Fee 13:07:17 CDT CPT-G0008 Administration of Influenza Virus Vaccine 16:09:59 CDT CPT-60231 Fluzone Quadrivalent Intramuscular Suspension 0.5 ML 16: 09:59 CDT CPT-78406 Spec Collection and Handling Fee 15:05:50 CDT
--- OUTSIDE RECORDS SUMMARY | 2018-04-18 10:42 | XMS REPORT | Clinical Summary ---
Author Author Admin, [facility] Organization [facility] Address Unknown Phone Unavailable Allergies, Adverse [...] Active Erin Garsia APRN Acute sinusitis, unspecified Medication List Medication Instructions Start Date Stop Date Generic Name NDC Status Provider Patient Instruction LEVAQUIN 500 MG TAB 1 tablet by mouth daily for 7 days LEVOFLOXACIN 41896327346 Active Erin Garsia APRN Active BACTRIM DS 800-160 MG TAB 1 tab by mouth twice daily TRIMETHOPRIM-SULFAMETHOXAZOLE 94846709987 No Longer Active Robbie Busby MD Active SPIRONOLACTONE 25 MG TAB 4 tablets by mouth daily SPIRONOLACTONE 68666687459 Active Robbie Busby MD Active HYDRALAZINE HCL 50 MG ORAL TABS TWO BY MOUTH THREE TIMES DAILY HYDRALAZINE HCL 33253036503 No Longer Active Andrellina Zulemal CATERPILLAR OPERATOR Active HYDROCODONE-ACETAMINOPHEN 5-325 MG TABS 1 tab by mouth BID prn back pain 2013 HYDROCODONE-ACETAMINOPHEN 68993202755 No Longer Active 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 CATERPILLAR OPERATOR Active HYDROCHLOROTHIAZIDE TABS Take one by mouth daily HYDROCHLOROTHIAZIDE TABS 50789709726 No Longer Active 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 CATERPILLAR OPERATOR Active LAMISIL 125 MG ORAL PACK 1 TAB PO DAILY TERBINAFINE HCL 95432871591 No Longer Active 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 CATERPILLAR OPERATOR Active TRILEPTAL 150 MG ORAL TABS 1 TAB PO Q HS OXCARBAZEPINE 41728683822 No Longer Active 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 CATERPILLAR OPERATOR Active BETADINE 10 % EXT SOLN 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 POVIDONE-IODINE 74870072046 No Longer Active 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 CATERPILLAR OPERATOR Active NYSTATIN 066545 UNIT/ML M/T SUSP 5mL po QID x 10 days NYSTATIN 15194985837 No Longer Active Erin Garsia APRN Active PREDNISONE 20 MG TAB 1 tablet twice daily for 2 days, then 1 tablet once daily for 2 days PREDNISONE 29775370978 No Longer Active Robbie Busby MD Active CEFDINIR 300 MG ORAL CAPS Take 1 cap po bid x 10 days CEFDINIR 16769916609 No Longer Active Robbie Busby MD Active AMLODIPINE BESYLATE 10 MG TABS 1 tablet by mouth daily AMLODIPINE BESYLATE 83601150945 Active Robbie Busby MD Active CARVEDILOL 25 MG TABS 1 & 1/2 TAB po BID CARVEDILOL 15053237280 Active Erin Garsia APRN Active VITAMIN D3 80709 UNIT CAPS 2 CAPS PO WEEKLY CHOLECALCIFEROL 47291528575 Active Erin Garsia APRN Active NEXIUM 40 MG CPDR 1 cap by mouth daily ESOMEPRAZOLE MAGNESIUM 77617906047 Active Robbie Busby MD Active PROTONIX 40 MG SOLR 1 po qday for acid reflux PANTOPRAZOLE SODIUM 50191526236 No Longer Active Gali Raida Active KEFLEX 500 MG CAP 1 po TID x 10 days CEPHALEXIN 06278679641 No Longer Active Robbie Busby MD Active FIORICET 50-300-40 MG ORAL CAPS take 1 tab po qday prn migraines. [id number] 35518907086 Active Robbie Busby MD Active TOPIRAMATE 50 MG ORAL TABS take 1 tab po BID for migraines. TOPIRAMATE 43440538435 Active Robbie Busby MD Active MECLIZINE HCL 25 MG TAB one 4 times a day as needed for dizziness MECLIZINE HCL 18854403441 Active Robbie Busby MD Active TEMAZEPAM 15 MG ORAL CAPS 1 TAB PO Q HS TEMAZEPAM 28305230286 Active Robbie Busby MD Active ALPRAZOLAM 2 MG ORAL TABS 1 TAB PO BID ALPRAZOLAM 70892945145 Active Robbie Busby MD Active FENOFIBRATE 145 MG TABS Take one by mouth daily FENOFIBRATE 89506853268 No Longer Active Robbie Busby MD Active SPIRONOLACTONE 50 MG TABS 1 tablet by mouth twice a day SPIRONOLACTONE 25679321685 No Longer Active Robbie Busby MD Active HYDRALAZINE HCL 25 MG TABS 1 tablet by mouth tid for hypertension HYDRALAZINE HCL 26374163015 No Longer Active Robbie Busby MD Active VIIBRYD 40 MG TABS take 1 tab po qday for depression. VILAZODONE HCL 04019059468 No Longer Active Robbie Busby MD Active TERBINAFINE HCL 250 MG TABS 1 tab po qday for foot infection 2014 TERBINAFINE HCL 65106914776 No Longer Active Robbie Busby MD Active GABAPENTIN 300 MG CAPS 1 po q hs for nerve pain GABAPENTIN 68678128007 Active Robbie Busby MD Active FLONASE 50 MCG/ACT SUSP 1 spray each nostril twice daily for allergies and runny nose FLUTICASONE PROPIONATE 47619545285 Active Robbie Busby MD Active CHERATUSSIN AC 100-10 MG/5ML ORAL SOLN 7.5 mL PO q 4-6 hrs PRN cough GUAIFENESIN-CODEINE 96505549242 No Longer Active Robbie Busby MD Active AZITHROMYCIN 250 MG ORAL TABS 2 tablets PO today---then, 1 tablet PO daily x 4 more days (and 1 optional refill) AZITHROMYCIN 11471323603 No Longer Active Robbie Busby MD Active CLONIDINE HCL 0.2 MG ORAL TABS 1 TAB BY MOUTH EVERY 8 HOURS CLONIDINE HCL 06602580630 Active Erin Garsia APRN Active NORVASC 10 MG TAB 1 tablet by mouth daily AMLODIPINE BESYLATE 52494436674 No Longer Active Alex ALVAREZ Active IMDUR 60 MG TAB CR take 1 tab po qday for blood pressure ISOSORBIDE MONONITRATE Active Robbie Busby MD Active ISOSORBIDE DINITRATE 30 MG TABS Take one by mouth daily ISOSORBIDE DINITRATE 71160466076 No Longer Active Robbie Busby MD Active VIIBRYD 40 MG TABS 1 TA B PO DAILY VILAZODONE HCL 16373248664 Active Robbie Busby MD Active LORATADINE 10 MG TABS 1 tablet by mouth daily for congestion and allergies. LORATADINE 75512552267 Active Robbie Busby MD Active ZITHROMAX 250 MG TAB 2 po today, then 1 po q days 2-5 AZITHROMYCIN 40205341273 No Longer Active Robbie Busby MD Active [id number]-CVN-6 0.3 MG/24HR PTWK apply 2 patches q week for HTN CLONIDINE HCL 10555199698 Active Robbie Busby MD Active NITROSTAT 0.4 MG SUBL PRN NITROGLYCERIN 19407431883 Active Robbie Busby MD Active DOXAZOSIN MESYLATE 4 MG TABS Take one by mouth daily DOXAZOSIN MESYLATE 26858337688 Active Erin Garsia APRN Active TOPROL XL 200 MG [id number] Take one by mouth daily METOPROLOL SUCCINATE 12820002694 Active Robbie Busby MD Active VENLAFAXINE HCL ER 150 MG [id number] Take one by mouth daily VENLAFAXINE HCL 95313297569 Active Robbie Busby MD Active LIPITOR 40 MG TABS Take one by mouth daily ATORVASTATIN CALCIUM 73975924954 Active Robbie Busby MD Active ISOSORBIDE DINITRATE 30 MG TABS Take one by mouth daily ISOSORBIDE DINITRATE 30 MG TABS 581412 ISOSORBIDE DINITRATE Inactive NORVASC 10 MG TAB 1 tablet by mouth daily NORVASC 10 MG TAB 666674 AMLODIPINE BESYLATE Inactive AZITHROMYCIN 250 MG ORAL TABS 2 tablets PO today---then, 1 tablet PO daily x 4 more days (and 1 optional refill) AZITHROMYCIN 250 MG ORAL TABS 1412035 AZITHROMYCIN Inactive CHERATUSSIN AC 100-10 MG/5ML ORAL SOLN 7.5 mL PO q 4-6 hrs PRN cough CHERATUSSIN AC 100-10 MG/5ML ORAL SOLN 800726 GUAIFENESIN- CODEINE Inactive VIIBRYD 40 MG TABS take 1 tab po qday for depression. VIIBRYD 40 MG TABS VILAZODONE HCL Inactive HYDRALAZINE HCL 25 MG TABS 1 tablet by mouth tid for hypertension HYDRALAZINE HCL 25 MG TABS 598188 HYDRALAZINE HCL Inactive SPIRONOLACTONE 50 MG TABS 1 tablet by mouth twice a day SPIRONOLACTONE 50 MG TABS 517221 SPIRONOLACTONE Inactive FENOFIBRATE 145 MG TABS Take one by mouth daily FENOFIBRATE 145 MG TABS 759060 FENOFIBRATE Inactive PROTONIX 40 MG SOLR 1 po qday for acid reflux PROTONIX 40 MG SOLR 431875 PANTOPRAZOLE SODIUM Inactive CEFDINIR 300 MG ORAL CAPS Take 1 cap po bid x 10 days CEFDINIR 300 MG ORAL CAPS 386756 CEFDINIR Inactive PREDNISONE 20 MG TAB 1 tablet twice daily for 2 days, then 1 tablet once daily for 2 days PREDNISONE 20 MG TAB 394707 PREDNISONE Inactive NYSTATIN 754040 UNIT/ML M/T SUSP 5mL po QID x 10 days NYSTATIN 512000 UNIT/ML M/T SUSP 958134 NYSTATIN Inactive BETADINE 10 % EXT SOLN 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 BETADINE 10 % EXT SOLN 6194275 POVIDONE-IODINE Inactive TRILEPTAL 150 MG ORAL TABS 1 TAB PO Q HS TRILEPTAL 150 MG ORAL TABS 536048 OXCARBAZEPINE Inactive LAMISIL 125 MG ORAL PACK 1 TAB PO DAILY LAMISIL 125 MG ORAL PACK TERBINAFINE HCL Inactive HYDROCHLOROTHIAZIDE TABS Take one by mouth daily HYDROCHLOROTHIAZIDE TABS HYDROCHLOROTHIAZIDE TABS Inactive HYDROCODONE-ACETAMINOPHEN 5-325 MG TABS 1 tab by mouth BID prn back pain 2013 HYDROCODONE-ACETAMINOPHEN 5-325 MG TABS 475428 HYDROCODONE -ACETAMINOPHEN Inactive HYDRALAZINE HCL 50 MG ORAL TABS TWO BY MOUTH THREE TIMES DAILY HYDRALAZINE HCL 50 MG ORAL TABS 010439 HYDRALAZINE HCL Inactive ZITHROMAX 250 MG TAB 2 po today, then 1 po q days 2-5 ZITHROMAX 250 MG TAB 7094740 AZITHROMYCIN Inactive TERBINAFINE HCL 250 MG TABS 1 tab po qday for foot infection 2014 TERBINAFINE HCL 250 MG TABS 763337 TERBINAFINE HCL Inactive KEFLEX 500 MG CAP 1 po TID x 10 days KEFLEX 500 MG CAP 999173 CEPHALEXIN Inactive BACTRIM DS 800-160 MG TAB 1 tab by mouth twice daily BACTRIM DS 800-160 MG TAB 635254 TRIMETHOPRIM-SULFAMETHOXAZOLE Inactive Advance Directives Directive Description Start [...] Acid - Chemistry sodium, serum 139 mmol/L 498-571 8684/04/22 carbon dioxide, venous blood 29.4 mmol/L 21.0-32.0 [...] to Follow Negative Lab Report: VITAMIN D, 25-HYDROXY/08739 - Chemistry vitamin D 25-hydroxy, serum 23 ng/mL 30-100 Encounters Code Encounter Date Provider Facility CPT-49001 Level 4 Est. Patient 12:00:49 CLINICAL LABORATORY SCIENTIST Rober Rodríguez APRN [facility] CPT-04183 Level 3 Est. Patient 09:16:37 CDT Robbie Busby MD [facility] CPT-93577 Level 3 Est. Patient 19:38:43 CDT Robbie Busby MD [facility] CPT-84661 Level 3 Est. Patient 11:53:38 CDT Robbie Busby MD [facility]-21833 Level 4 Est. Patient 12:52:22 CDT Rober Rodríguez APRN [facility] CPT-54754 Level 4 Est. Patient 22:55:17 CDT Robbie Busby MD [facility]-23686 Level 3 Est. Patient 12:38:24 CDT Desmond Diaz DO [facility] CPT-18520 Level 4 Est. Patient 11:25:03 CLINICAL LABORATORY SCIENTIST Robbie Busby MD [facility] CPT-54124 Level 4 Est. Patient 14:50:10 CDT Robbie Busby MD [facility] CPT-71043 Level 4 Est. Patient 23:30:43 CDT Robbie Busby MD [facility] CPT-63191 Level 4 Est. Patient 10:30:43 CDT Robbie Busby MD [facility] CPT-29731 Level 3 Est. Patient 17:08:12 CDT Alex ALVAREZ [facility] CPT-86835 Level 4 Est. Patient 17:51:38 CDT Robbie Busby MD [facility] CPT-28294 Level 4 Est. Patient 14:00:21 CDT Robbie Busby MD [facility] CPT-31058 Level 4 Est. Patient 12:46:48 CDT Robbie Busby MD [facility]-27695 Level 4 Est. Patient 13:34:33 CDT Robbie Busby MD [facility] CPT-47355 Level 4 Est. Patient 16:58:28 CDT Robbie Busby MD [facility] CPT-16664 Level 3 Est. Patient 19:36:53 CDT Alex ALVAREZ [facility] CPT-36521 Level 3 Est. Patient 12:58:15 CDT Robbie Busby MD [facility] Procedures Code Procedure Name Date Entry Date Standard Description CPT-J0696 Rocephin 1000 mg (Ceftriaxone) 17:43:43 CLINICAL LABORATORY SCIENTIST CPT-J1040 Depo Medrol 80 mg (Methyl Prednisolone Acetate) 17:43: 43 CLINICAL LABORATORY SCIENTIST CPT-J1100 Decadron 8mg (Dexamethasone) 17:43:42 CLINICAL LABORATORY SCIENTIST CPT-88266 Abx/Therapy Injection 17:43:42 CLINICAL LABORATORY SCIENTIST CPT-30845 Abx/Therapy Injection 17:43:42 CLINICAL LABORATORY SCIENTIST CPT-J1040 Depo Medrol 80 mg (Methyl Prednisolone Acetate) 09:43: 34 CLINICAL LABORATORY SCIENTIST CPT-J1100 Decadron 8mg (Dexamethasone) 09:43:34 CLINICAL LABORATORY SCIENTIST CPT-J0696 Rocephin 1gm Inj Solr 09:43:34 CLINICAL LABORATORY SCIENTIST CPT-02439 Wound Culture - LAB USE ONLY 14:00:21 CDT CPT-I/D I/D Abscess 09:16:37 CDT CPT-21992 Venipuncture Draw Fee 15:20:23 CDT CPT-72582 Microalbumin - LAB USE ONLY 16:02:19 CDT CPT-92453 CBC - LAB USE ONLY 16:02:19 CDT CPT-01052 Venipuncture Draw Fee 16:02:19 CDT CPT-G0438 Initial Annual Wellness Exam 08:10:28 CDT CPT-57379 Venipuncture Draw Fee 13:07:17 CDT CPT-G0008 Administration of Influenza Virus Vaccine 16:09:59 CDT CPT-89951 Fluzone Quadrivalent Intramuscular Suspension 0.5 ML 16: 09:59 CDT CPT-68787 Spec Collection and Handling Fee 15:05:50 CDT
--- OUTSIDE RECORDS SUMMARY | 2018-04-18 10:43 | XMS REPORT | Clinical Summary ---
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 Rober Rodríguez JOB PLACEMENT COUNSELOR Other malignant secondary hypertension Tachycardia 785.0 Active [...] muscle spasm/pain for 10 days CYCLOBENZAPRINE HCL 55581118360 Active Erin Garsia APRN Active PREDNISONE 20 MG TAB take 3 tabs daily for 3 days, 2 tabs daily for 3 days, 1 tab daily for 3 days, 1/2 tab daily for 4 days PREDNISONE 23226417143 Active Erin Garsia APRN Active CLONIDINE HCL 0.2 MG ORAL TABS 1 TAB BY MOUTH EVERY 8 HOURS 12/29 CLONIDINE HCL 87057363463 No Longer Active Erin Garsia APRN Active MECLIZINE HCL 25 MG TAB one 4 times a day as needed for dizziness MECLIZINE HCL 77743789390 No Longer Active Erin Garsia APRN Active SPIRONOLACTONE 25 MG TAB 4 tablets by mouth daily SPIRONOLACTONE 88499971095 No Longer Active Erin Garsia APRN Active LEVAQUIN 500 MG TAB 1 tablet by mouth daily for 7 days LEVOFLOXACIN 17274920298 No Longer Active Erin Garsia APRN Active BACTRIM DS 800-160 MG TAB 1 tab by mouth twice daily TRIMETHOPRIM-SULFAMETHOXAZOLE 62273664531 No Longer Active Robbie Busby MD Active HYDRALAZINE HCL 50 MG ORAL TABS TWO BY MOUTH THREE TIMES DAILY HYDRALAZINE HCL 64959823218 No Longer Active 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 JOB PLACEMENT COUNSELOR Active HYDROCODONE-ACETAMINOPHEN 5-325 MG TABS 1 tab by mouth BID prn back pain 2013 HYDROCODONE-ACETAMINOPHEN 40810637467 No Longer Active 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 JOB PLACEMENT COUNSELOR Active HYDROCHLOROTHIAZIDE TABS Take one by mouth daily HYDROCHLOROTHIAZIDE TABS 19173181731 No Longer Active 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 JOB PLACEMENT COUNSELOR Active LAMISIL 125 MG ORAL PACK 1 TAB PO DAILY TERBINAFINE HCL 68494170319 No Longer Active 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 JOB PLACEMENT COUNSELOR Active TRILEPTAL 150 MG ORAL TABS 1 TAB PO Q HS OXCARBAZEPINE 94607362568 No Longer Active 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 JOB PLACEMENT COUNSELOR Active BETADINE 10 % EXT SOLN 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 POVIDONE-IODINE 68371615034 No Longer Active Jillina Frakierstenl JOB PLACEMENT COUNSELOR Active NYSTATIN 218665 UNIT/ML M/T SUSP 5mL po QID x 10 days NYSTATIN 45392073699 No Longer Active Erin Garsia APRN Active PREDNISONE 20 MG TAB 1 tablet twice daily for 2 days, then 1 tablet once daily for 2 days PREDNISONE 74218663299 No Longer Active Robbie Busby MD Active CEFDINIR 300 MG ORAL CAPS Take 1 cap po bid x 10 days CEFDINIR 17016856301 No Longer Active Robbie Busby MD Active AMLODIPINE BESYLATE 10 MG TABS 1 tablet by mouth daily AMLODIPINE BESYLATE 74354523118 Active Robbie Busby MD Active CARVEDILOL 25 MG TABS 1 & 1/2 TAB po BID CARVEDILOL 81465148056 Active Erin Garsia APRN Active VITAMIN D3 60894 UNIT CAPS 2 CAPS PO WEEKLY CHOLECALCIFEROL 42518142905 Active Erin Garsia APRN Active NEXIUM 40 MG CPDR 1 cap by mouth daily ESOMEPRAZOLE MAGNESIUM 36101371443 Active Robbie Busby MD Active PROTONIX 40 MG SOLR 1 po qday for acid reflux PANTOPRAZOLE SODIUM 91402969181 No Longer Active Gali Negro Active KEFLEX 500 MG CAP 1 po TID x 10 days CEPHALEXIN 63192284784 No Longer Active Robbie Busby MD Active FIORICET 50-300-40 MG ORAL CAPS take 1 tab po qday prn migraines. [id number] 62993696126 Active Robbie Busby MD Active TOPIRAMATE 50 MG ORAL TABS take 1 tab po BID for migraines. TOPIRAMATE 89291437485 Active Robbie Busby MD Active TEMAZEPAM 15 MG ORAL CAPS 1 TAB PO Q HS TEMAZEPAM 97701575171 Active Robbie Busby MD Active ALPRAZOLAM 2 MG ORAL TABS 1 TAB PO BID ALPRAZOLAM 47133280988 Active Robbie Busby MD Active FENOFIBRATE 145 MG TABS Take one by mouth daily FENOFIBRATE 44150306989 No Longer Active Robbie Busby MD Active SPIRONOLACTONE 50 MG TABS 1 tablet by mouth twice a day SPIRONOLACTONE 12242889916 No Longer Active Robbie Busby MD Active HYDRALAZINE HCL 25 MG TABS 1 tablet by mouth tid for hypertension HYDRALAZINE HCL 77848921323 No Longer Active Robbie Busby MD Active VIIBRYD 40 MG TABS take 1 tab po qday for depression. VILAZODONE HCL 76577333652 No Longer Active Robbie Busby MD Active TERBINAFINE HCL 250 MG TABS 1 tab po qday for foot infection 2014 TERBINAFINE HCL 30275918971 No Longer Active Robbie Busby MD Active GABAPENTIN 300 MG CAPS 1 po q hs for nerve pain GABAPENTIN 15691198392 Active Robbie Busby MD Active FLONASE 50 MCG/ACT SUSP 1 spray each nostril twice daily for allergies and runny nose FLUTICASONE PROPIONATE 95993330575 Active Robbie Busby MD Active CHERATUSSIN AC 100-10 MG/5ML ORAL SOLN 7.5 mL PO q 4-6 hrs PRN cough GUAIFENESIN-CODEINE 82809625323 No Longer Active Robbie Busby MD Active AZITHROMYCIN 250 MG ORAL TABS 2 tablets PO today---then, 1 tablet PO daily x 4 more days (and 1 optional refill) AZITHROMYCIN 20281346200 No Longer Active Robbie Busby MD Active NORVASC 10 MG TAB 1 tablet by mouth daily AMLODIPINE BESYLATE 36578336745 No Longer Active Alex ALVAREZ Active IMDUR 60 MG TAB CR take 1 tab po qday for blood pressure ISOSORBIDE MONONITRATE Active Robbie Busby MD Active ISOSORBIDE DINITRATE 30 MG TABS Take one by mouth daily ISOSORBIDE DINITRATE 12960672531 No Longer Active Robbie Busby MD Active VIIBRYD 40 MG TABS 1 TA B PO DAILY VILAZODONE HCL 07566397187 Active Robbie Busby MD Active LORATADINE 10 MG TABS 1 tablet by mouth daily for congestion and allergies. LORATADINE 15216404496 Active Robbie Busby MD Active ZITHROMAX 250 MG TAB 2 po today, then 1 po q days 2-5 AZITHROMYCIN 44199310260 No Longer Active Robbie Busby MD Active [id number] 0.3 MG/24HR PTWK apply 2 patches q week for HTN CLONIDINE HCL 50028141323 Active Robbie Busby MD Active NITROSTAT 0.4 MG SUBL PRN NITROGLYCERIN 86232621971 Active Robbie Busby MD Active DOXAZOSIN MESYLATE 4 MG TABS Take one by mouth daily DOXAZOSIN MESYLATE 46166272374 Active Erin Garsia APRN Active TOPROL XL 200 MG [id number] Take one by mouth daily METOPROLOL SUCCINATE 94218716622 Active Robbie Busby MD Active VENLAFAXINE HCL ER 150 MG [id number] Take one by mouth daily VENLAFAXINE HCL 17023697495 Active Robbie Busby MD Active LIPITOR 40 MG TABS Take one by mouth daily ATORVASTATIN CALCIUM 73891233439 Active Robbie Busby MD Active ISOSORBIDE DINITRATE 30 MG TABS Take one by mouth daily ISOSORBIDE DINITRATE 30 MG TABS 991543 ISOSORBIDE DINITRATE Inactive NORVASC 10 MG TAB 1 tablet by mouth daily NORVASC 10 MG TAB 406849 AMLODIPINE BESYLATE Inactive AZITHROMYCIN 250 MG ORAL TABS 2 tablets PO today---then, 1 tablet PO daily x 4 more days (and 1 optional refill) AZITHROMYCIN 250 MG ORAL TABS 0234962 AZITHROMYCIN Inactive CHERATUSSIN AC 100-10 MG/5ML ORAL SOLN 7.5 mL PO q 4-6 hrs PRN cough CHERATUSSIN AC 100-10 MG/5ML ORAL SOLN 995243 GUAIFENESIN- CODEINE Inactive VIIBRYD 40 MG TABS take 1 tab po qday for depression. VIIBRYD 40 MG TABS VILAZODONE HCL Inactive HYDRALAZINE HCL 25 MG TABS 1 tablet by mouth tid for hypertension HYDRALAZINE HCL 25 MG TABS 760497 HYDRALAZINE HCL Inactive SPIRONOLACTONE 50 MG TABS 1 tablet by mouth twice a day SPIRONOLACTONE 50 MG TABS 846740 SPIRONOLACTONE Inactive FENOFIBRATE 145 MG TABS Take one by mouth daily FENOFIBRATE 145 MG TABS 142012 FENOFIBRATE Inactive PROTONIX 40 MG SOLR 1 po qday for acid reflux PROTONIX 40 MG SOLR 385013 PANTOPRAZOLE SODIUM Inactive CEFDINIR 300 MG ORAL CAPS Take 1 cap po bid x 10 days CEFDINIR 300 MG ORAL CAPS 636047 CEFDINIR Inactive PREDNISONE 20 MG TAB 1 tablet twice daily for 2 days, then 1 tablet once daily for 2 days PREDNISONE 20 MG TAB 332373 PREDNISONE Inactive NYSTATIN 040878 UNIT/ML M/T SUSP 5mL po QID x 10 days NYSTATIN 419276 UNIT/ML M/T SUSP 330038 NYSTATIN Inactive BETADINE 10 % EXT SOLN 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 BETADINE 10 % EXT SOLN 2205418 POVIDONE-IODINE Inactive TRILEPTAL 150 MG ORAL TABS 1 TAB PO Q HS TRILEPTAL 150 MG ORAL TABS 825896 OXCARBAZEPINE Inactive LAMISIL 125 MG ORAL PACK 1 TAB PO DAILY LAMISIL 125 MG ORAL PACK TERBINAFINE HCL Inactive HYDROCHLOROTHIAZIDE TABS Take one by mouth daily HYDROCHLOROTHIAZIDE TABS HYDROCHLOROTHIAZIDE TABS Inactive HYDROCODONE-ACETAMINOPHEN 5-325 MG TABS 1 tab by mouth BID prn back pain 2013 HYDROCODONE-ACETAMINOPHEN 5-325 MG TABS 150378 HYDROCODONE -ACETAMINOPHEN Inactive HYDRALAZINE HCL 50 MG ORAL TABS TWO BY MOUTH THREE TIMES DAILY HYDRALAZINE HCL 50 MG ORAL TABS 123297 HYDRALAZINE HCL Inactive LEVAQUIN 500 MG TAB 1 tablet by mouth daily for 7 days LEVAQUIN 500 MG TAB 545395 LEVOFLOXACIN Inactive SPIRONOLACTONE 25 MG TAB 4 tablets by mouth daily SPIRONOLACTONE 25 MG TAB 190551 SPIRONOLACTONE Inactive MECLIZINE HCL 25 MG TAB one 4 times a day as needed for dizziness MECLIZINE HCL 25 MG TAB 764385 MECLIZINE HCL Inactive CLONIDINE HCL 0.2 MG ORAL TABS 1 TAB BY MOUTH EVERY 8 HOURS 12/29 CLONIDINE HCL 0.2 MG ORAL TABS 167454 CLONIDINE HCL Inactive ZITHROMAX 250 MG TAB 2 po today, then 1 po q days 2-5 ZITHROMAX 250 MG TAB 8260913 AZITHROMYCIN Inactive TERBINAFINE HCL 250 MG TABS 1 tab po qday for foot infection 2014 TERBINAFINE HCL 250 MG TABS 878949 TERBINAFINE HCL Inactive KEFLEX 500 MG CAP 1 po TID x 10 days KEFLEX 500 MG CAP 702120 CEPHALEXIN Inactive BACTRIM DS 800-160 MG TAB 1 tab by mouth twice daily BACTRIM DS 800-160 MG TAB 223561 TRIMETHOPRIM-SULFAMETHOXAZOLE Inactive Advance Directives Directive Description Start [...] % 11.0-15.0 platelet count 185 THOUSAND/UL 10*3/mm3 652-169 3082/04/14 mean platelet volume 10.9 fL 7.5-12.5 Lab Report: HEPATITIS B SAB/Immune Status, RUBELLA IGG AB(Immune Status) - Serology rubella antibody, serum, IgG 2.06 Lab Report: LIPID PANEL, TSH/899, T4, FREE/866 - Chemistry cholesterol, serum 220 mg/dL 497-760 9773/04/14 HDL cholesterol, serum 30 mg/dL > OR=40 triglyceride, serum, fasting 466 mg/dL <150 LDL cholesterol, serum SEE NOTE mg/dL (calc) mg/dL <130 cholesterol/HDL ratio, serum 7.3 (calc) < OR=5.0 Lab Report: MICROALB/CREAT W/RATIO - Chemistry albumin/creatinine ratio, urine < 30 mg/g mg/g{creat} 0-29 Lab Report: MICROALB/CREAT W/RATIO - Lab microalbumin, urine 80 0-19 Lab Report: VITAMIN D, 25-HYDROXY/46476 - Chemistry vitamin D 25-hydroxy, serum 23 ng/mL 30-100 Encounters Code Encounter Date Provider Facility CPT-65201 Level 4 Est. Patient 12:00:49 AREA DEVELOPMENT MANAGER Rober Rodríguez [facility] CPT-29657 Level 3 Est. Patient 09:16:37 CDT Robbie Busby MD [facility] CPT-40347 Level 3 Est. Patient 19:38:43 CDT Robbie Busby MD [facility] CPT-24481 Level 3 Est. Patient 11:53:38 CDT Robbie Busby MD [facility] CPT-16655 Level 4 Est. Patient 12:52:22 CDT Rober Rodríguez [facility] CPT-15038 Level 4 Est. Patient 22:55:17 CDT Robbie Busby MD [facility] CPT-81971 Level 3 Est. Patient 12:38:24 CDT Desmond Diaz DO [facility] CPT-71443 Level 4 Est. Patient 11:25:03 AREA DEVELOPMENT MANAGER Robbie Busby MD [facility] CPT-15367 Level 4 Est. Patient 14:50:10 CDT Robbie Busby MD [facility] CPT-64780 Level 4 Est. Patient 23:30:43 CDT Robbie Busby MD [facility] CPT-10591 Level 4 Est. Patient 10:30:43 CDT Robbie Busby MD [facility] CPT-53161 Level 3 Est. Patient 17:08:12 CDT Alex ALVAREZ [facility] CPT-18997 Level 4 Est. Patient 17:51:38 CDT Robbie Busby MD [facility] CPT-69917 Level 4 Est. Patient 14:00:21 CDT Robbie Busby MD [facility] CPT-09685 Level 4 Est. Patient 12:46:48 CDT Robbie Busby MD [facility] CPT-31078 Level 4 Est. Patient 13:34:33 CDT Robbie Busby MD [facility] CPT-35973 Level 4 Est. Patient 16:58:28 CDT Robbie Busby MD [facility] CPT-95689 Level 3 Est. Patient 19:36:53 CDT Alex Shaw [facility] CPT-58641 Level 3 Est. Patient 12:58:15 CDT Robbie Busby MD [facility] Procedures Code Procedure Name Date Entry Date Standard Description CPT-J0696 Rocephin 1000 mg (Ceftriaxone) 17:43:43 AREA DEVELOPMENT MANAGER CPT-J1040 Depo Medrol 80 mg (Methyl Prednisolone Acetate) 17:43: 43 AREA DEVELOPMENT MANAGER CPT-J1100 Decadron 8mg (Dexamethasone) 17:43:42 AREA DEVELOPMENT MANAGER CPT-01060 Abx/Therapy Injection 17:43:42 AREA DEVELOPMENT MANAGER CPT-61024 Abx/Therapy Injection 17:43:42 AREA DEVELOPMENT MANAGER CPT-J1040 Depo Medrol 80 mg (Methyl Prednisolone Acetate) 09:43: 34 AREA DEVELOPMENT MANAGER CPT-J1100 Decadron 8mg (Dexamethasone) 09:43:34 AREA DEVELOPMENT MANAGER CPT-J0696 Rocephin 1gm Inj Solr 09:43:34 AREA DEVELOPMENT MANAGER CPT-49365 Wound Culture - LAB USE ONLY 14:00:21 CDT CPT-I/D I/D Abscess 09:16:37 CDT CPT-95916 Venipuncture Draw Fee 15:20:23 CDT CPT-23557 Microalbumin - LAB USE ONLY 16:02:19 CDT CPT-76826 CBC - LAB USE ONLY 16:02:19 CDT CPT-83812 Venipuncture Draw Fee 16:02:19 CDT CPT-G0438 Initial Annual Wellness Exam 08:10:28 CDT CPT-22931 Venipuncture Draw Fee 13:07:17 CDT CPT-G0008 Administration of Influenza Virus Vaccine 16:09:59 CDT CPT-76704 Fluzone Quadrivalent Intramuscular Suspension 0.5 ML 16: 09:59 CDT CPT-83434 Spec Collection and Handling Fee 15:05:50 CDT
--- OUTSIDE RECORDS SUMMARY | 2018-04-18 10:44 | XMS REPORT | Clinical Summary ---
Author Author Admin, Nicolas Organization [facility] Address Unknown Phone Unavailable Allergies, Adverse Reactions, Alerts Allergy Name Reaction Description Start Date Severity Status Provider No Known Allergies Gali Raida Conditions or Problems Problem Name Problem Code Onset Date Status Entry Date Provider Comment Standard Description Annotate HEALTH EXAMINATION OF DEFINED SUBPOPULATION V70.5 Active Temitope [facility] examination of defined subpopulations Hypertension 401.9 Active Robbie Busyb MD Unspecified essential hypertension Hyperlipidemia 272.4 Active [...] Sleep apnea, chronic 780.57 Active Erin Garsia RECRUITING COORDINATOR Unspecified sleep apnea Continuous positive airway pressure rx V46.2 Active Erin Garsia RECRUITING COORDINATOR Other dependence on machines, 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 Fatigue 780.79 Resolved Desmond Diaz DO Other malaise and fatigue Hypertension, secondary, 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 Desmond Diaz DO Other malignant secondary hypertension Tachycardia 785.0 Active Rober Rodríguez RECRUITING COORDINATOR Tachycardia, unspecified Insect bite, infected 919.5 Resolved Desmond Diaz DO Insect bite, nonvenomous, of other, multiple, and unspecified sites, infected Abscess, skin 682.9 Resolved Desmond Diaz DO Cellulitis and abscess of unspecified sites URI 465.9 Resolved Desmond Diaz DO Acute upper respiratory infections of unspecified site Hypertension 401.9 Active Rober Rodríguez RECRUITING COORDINATOR Unspecified essential hypertension Sinusitis - acute 461.9 Resolved Desmond Howell Joe DO Acute sinusitis, unspecified Acute confusion [...] Hypogonadism, low testosterone 257.2 Active Erin Garsia RECRUITING COORDINATOR Other testicular hypofunction Low back pain, chronic 724.2 Active Robbie Busby MD Lumbago Bronchitis-Acute 466.0 Inactive Desmond Diaz DO Acute bronchitis Polydipsia 783.5 Active Desmond Diaz DO Polydipsia Type 2 diabetes mellitus with hyperglycemia Active Robbie Busby MD Sinusitis ICD-461.9 Inactive 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 LPN 2017 Low back pain, acute ICD-724.2 Inactive 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 LPN Low back pain, chronic ICD-724.2 Inactive 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 BRANCH CUSTOMER SERVICE REPRESENTATIVE Bronchitis, acute ICD-466.0 Inactive 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 BRANCH CUSTOMER SERVICE REPRESENTATIVE Onychomycosis, toenails ICD-110.1 Inactive 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 BRANCH CUSTOMER SERVICE REPRESENTATIVE Dizziness ICD-780.4 Inactive 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 BRANCH CUSTOMER SERVICE REPRESENTATIVE 2017 Folliculitis ICD-704.8 Inactive 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 BRANCH CUSTOMER SERVICE REPRESENTATIVE Pharyngitis-Acute ICD-462 Inactive 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 BRANCH CUSTOMER SERVICE REPRESENTATIVE Fatigue ICD-780.79 Inactive 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 BRANCH CUSTOMER SERVICE REPRESENTATIVE 09/20 Hypertension, secondary, malignant ICD-405.09 Inactive Emily Atwood BRANCH CUSTOMER SERVICE REPRESENTATIVE Insect bite, infected ICD-919.5 Inactive Emily Atwood BRANCH CUSTOMER SERVICE REPRESENTATIVE Abscess, skin ICD-682.9 Inactive Emily Atwood BRANCH CUSTOMER SERVICE REPRESENTATIVE URI ICD-465.9 Inactive Emily Atwood BRANCH CUSTOMER SERVICE REPRESENTATIVE Sinusitis - acute ICD-461.9 Inactive Emily Atwood BRANCH CUSTOMER SERVICE REPRESENTATIVE Acute confusion ICD-293.0 Inactive Emily Atwood BRANCH CUSTOMER SERVICE REPRESENTATIVE Headache ICD-784.0 Inactive Emily Atwood BRANCH CUSTOMER SERVICE REPRESENTATIVE 09/20 Back pain ICD-724.5 Inactive Emily Atwood BRANCH CUSTOMER SERVICE REPRESENTATIVE 2017 Rib pain, right sided ICD-786.50 Inactive Emily Atwood BRANCH CUSTOMER SERVICE REPRESENTATIVE Myalgias ICD-729.1 Inactive Emily Atwood LPN 09/20 URI ICD-465.9 Inactive Emily Atwodo LPN Bronchitis-Acute ICD-466.0 Inactive Desmond Diaz DO Medication List Medication Instructions Start Date Stop Date Generic Name NDC Status Provider Patient Instruction CYCLOBENZAPRINE HCL 10 MG ORAL TABLET 1 tablet by mouth three times daily as needed for muscle spasm/pain CYCLOBENZAPRINE HCL 64027492738 Active Robbie Busby MD Active METFORMIN HCL 500 MG ORAL TABLET 1 tablet by mouth daily for diabetes type 2 METFORMIN HCL 03868849509 Active Robbie Busby MD Active SINGULAIR 10 MG ORAL TABLET 1 po qday for allergies. MONTELUKAST SODIUM 32959285068 Active Robbie Busby MD Active PREDNISONE 20 MG ORAL TABLET two tabs by mouth today, then one tab by mouth days two and three PREDNISONE 08580647993 No Longer Active Robbie Busby MD Active TOPIRAMATE 50 MG ORAL TABLET 1 po BID for migraines TOPIRAMATE 39671985493 Active JONATHAN Moncada Active AZITHROMYCIN 250 MG ORAL TABLET 2 po qd x 1 day, then 1 po qd x 4 days 09/20 AZITHROMYCIN 66283825026 No Longer Active Desmond Diaz DO Active TOPIRAMATE 50 MG ORAL TABLET take 1 tab po BID for migraines. TOPIRAMATE 61154025580 No Longer Active Desmond Diaz DO Active CYCLOBENZAPRINE HCL 10 MG ORAL TABLET 1 po TID PRN muscle spasm/pain for 10 days CYCLOBENZAPRINE HCL 06401815149 No Longer Active Desmond Diaz DO Active GUAIFENESIN ER 600 MG ORAL TABLET EXTENDED RELEASE 12 HOUR 1 tab po q am 2016 GUAIFENESIN 70791471937 No Longer Active Robbie Busby MD Active DIVALPROEX SODIUM ER 500 MG ORAL TABLET EXTENDED RELEASE 24 HOUR Once daily DIVALPROEX SODIUM 63131163383 Active Robbie Busby MD Active DEPO-TESTOSTERONE 200 MG/ML INTRAMUSCULAR SOLUTION 1 IM Injections every 2 weeks for low testosterone TESTOSTERONE CYPIONATE 68642466417 Active Zulema Blank LPN Active FLUTICASONE PROPIONATE 50 MCG/ACT NASAL SUSPENSION 2 sprays per nostril bid for 1 week, then 1 spray bid FLUTICASONE PROPIONATE 69936391667 Active Rober Rodríguez APRN Active HYDRALAZINE HCL 25 MG ORAL TABLET Take 1 tab BID. HYDRALAZINE HCL 91081734479 Active Rober Rodríguez APRN Active VITAMIN D3 26773 UNIT ORAL TABLET 2 po weekly CHOLECALCIFEROL 81580388632 Active Robbie Busby MD Active OXYCODONE HCL ER 10 MG ORAL TABLET ER 12 HOUR ABUSE-DETERRENT 1 tab po 3 times qd. OXYCODONE HCL 37509117703 Active Robbie Busby MD Active NITROSTAT 0.4 MG SUBLINGUAL TABLET SUBLINGUAL PRN NITROGLYCERIN 32025226506 No Longer Active Robbie Busby MD Active LORATADINE 10 MG ORAL TABLET 1 tablet by mouth daily for congestion and allergies. LORATADINE 17924937904 No Longer Active Robbie Busby MD Active FLONASE 50 MCG/ACT NASAL SUSPENSION 1 spray each nostril twice daily for allergies and runny nose FLUTICASONE PROPIONATE 92798353409 No Longer Active Robbie Busby MD Active FIORICET 50-300-40 MG ORAL CAPSULE take 1 tab po qday prn migraines. [id number] 30610378179 No Longer Active Robbie Busby MD Active VITAMIN D3 03584 UNIT ORAL CAPSULE 2 CAPS PO WEEKLY CHOLECALCIFEROL 04478050069 No Longer Active Robbie Busby MD Active CYCLOBENZAPRINE HCL 10 MG ORAL TABLET 1 tablet by mouth three times daily as needed for muscle spasm/pain for 10 days CYCLOBENZAPRINE HCL 58918082307 No Longer Active Robbie Busby MD Active PREDNISONE 20 MG ORAL TABLET take 3 tabs daily for 3 days, 2 tabs daily for 3 days, 1 tab daily for 3 days, 1/2 tab daily for 4 days PREDNISONE 80901514682 No Longer Active Erin Garsia APRN Active CLONIDINE HCL 0.2 MG ORAL TABLET 1 TAB BY MOUTH EVERY 8 HOURS CLONIDINE HCL 49377839168 No Longer Active Erin Garsia APRN Active MECLIZINE HCL 25 MG ORAL TABLET one 4 times a day as needed for dizziness MECLIZINE HCL 76386247124 No Longer Active Erin Garsia APRN Active SPIRONOLACTONE 25 MG ORAL TABLET 4 tablets by mouth daily SPIRONOLACTONE 27237096866 No Longer Active Erin Garsia APRN Active LEVAQUIN 500 MG ORAL TABLET 1 tablet by mouth daily for 7 days LEVOFLOXACIN 43599657276 No Longer Active Erin Garsia APRN Active BACTRIM DS 800-160 MG ORAL TABLET 1 tab by mouth twice daily 2015 TRIMETHOPRIM-SULFAMETHOXAZOLE 01511502890 No Longer Active Robbie Busby MD Active HYDRALAZINE HCL 50 MG ORAL TABLET TWO BY MOUTH THREE TIMES DAILY HYDRALAZINE HCL 43037995467 No Longer Active Rober Rodríguez APRN Active HYDROCODONE-ACETAMINOPHEN 5-325 MG ORAL TABLET 1 tab by mouth BID prn back pain HYDROCODONE-ACETAMINOPHEN 68858550762 No Longer Active Rober Rodríguez APRN Active HYDROCHLOROTHIAZIDE TABLET Take one by mouth daily HYDROCHLOROTHIAZIDE TABS 22775383828 No Longer Active Rober Rodríguez APRN Active LAMISIL 125 MG ORAL PACKET 1 TAB PO DAILY TERBINAFINE HCL 77171503612 No Longer Active Rober Rodríguez APRN Active TRILEPTAL 150 MG ORAL TABLET 1 TAB PO Q HS OXCARBAZEPINE 56043181591 No Longer Active 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 RECRUITING COORDINATOR Active BETADINE 10 % EXTERNAL SOLUTION 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 07/29 POVIDONE-IODINE 42363794002 No Longer Active Rober Rodríguez APRN Active NYSTATIN 151844 UNIT/ML MOUTH/THROAT SUSPENSION 5mL po QID x 10 days NYSTATIN 82124421054 No Longer Active Erin Garsia APRN Active PREDNISONE 20 MG ORAL TABLET 1 tablet twice daily for 2 days, then 1 tablet once daily for 2 days PREDNISONE 62726904806 No Longer Active Robbie Busby MD Active CEFDINIR 300 MG ORAL CAPSULE Take 1 cap po bid x 10 days CEFDINIR 18145497900 No Longer Active Robbie Busby MD Active AMLODIPINE BESYLATE 10 MG ORAL TABLET 1 tablet by mouth daily AMLODIPINE BESYLATE 67203651732 Active Robbie Busby MD Active CARVEDILOL 25 MG ORAL TABLET 1 & 1/2 TAB po BID CARVEDILOL 84697562228 Active Robbie Busby MD Active NEXIUM 40 MG ORAL CAPSULE DELAYED RELEASE 1 cap by mouth daily ESOMEPRAZOLE MAGNESIUM 90691543395 Active Robbie Busby MD Active PROTONIX 40 MG INTRAVENOUS SOLUTION RECONSTITUTED 1 po qday for acid reflux PANTOPRAZOLE SODIUM 84500969094 No Longer Active Gali Raida Active KEFLEX 500 MG ORAL CAPSULE 1 po TID x 10 days CEPHALEXIN 18740940639 No Longer Active Robbie Busby MD Active TEMAZEPAM 15 MG ORAL CAPSULE 1 TAB PO Q HS TEMAZEPAM 90545375693 Active Robbie Busby MD Active ALPRAZOLAM 2 MG ORAL TABLET 1 TAB PO BID ALPRAZOLAM 03674914334 Active Robbie Busby MD Active FENOFIBRATE 145 MG ORAL TABLET Take one by mouth daily FENOFIBRATE 45377234758 No Longer Active Robbie Busby MD Active SPIRONOLACTONE 50 MG ORAL TABLET 1 tablet by mouth twice a day SPIRONOLACTONE 59265864057 No Longer Active Robbie Busby MD Active HYDRALAZINE HCL 25 MG ORAL TABLET 1 tablet by mouth tid for hypertension 2013 HYDRALAZINE HCL 65375325229 No Longer Active Robbie Busby MD Active VIIBRYD 40 MG ORAL TABLET take 1 tab po qday for depression. 2014 VILAZODONE HCL 32716600649 No Longer Active Robbie Busby MD Active TERBINAFINE HCL 250 MG ORAL TABLET 1 tab po qday for foot infection TERBINAFINE HCL 47010325986 No Longer Active Robbie Busby MD Active GABAPENTIN 300 MG ORAL CAPSULE 1 po q hs for nerve pain GABAPENTIN 33065912000 Active Robbie Busby MD Active CHERATUSSIN AC 100-10 MG/5ML ORAL SOLUTION 7.5 mL PO q 4-6 hrs PRN cough 2014 GUAIFENESIN-CODEINE 28463020986 No Longer Active Robbie Busby MD Active AZITHROMYCIN 250 MG ORAL TABLET 2 tablets PO today---then, 1 tablet PO daily x 4 more days (and 1 optional refill) AZITHROMYCIN 97385195345 No Longer Active Robbie Busby MD Active NORVASC 10 MG ORAL TABLET 1 tablet by mouth daily AMLODIPINE BESYLATE 40200676280 No Longer Active Alex ALVAREZ Active IMDUR 60 MG ORAL TABLET EXTENDED RELEASE 24 HOUR take 1 tab po qday for blood pressure ISOSORBIDE MONONITRATE 67536106709 Active Robbie Busby MD Active ISOSORBIDE DINITRATE 30 MG ORAL TABLET Take one by mouth daily ISOSORBIDE DINITRATE 82975590930 No Longer Active Robbie Busby MD Active VIIBRYD 40 MG ORAL TABLET 1 TA B PO DAILY VILAZODONE HCL 59248771778 Active Robbie Busby MD Active ZITHROMAX 250 MG ORAL TABLET 2 po today, then 1 po q days 2-5 AZITHROMYCIN 44988035872 No Longer Active Robbie Busby MD Active [id number] 0.3 MG/24HR TRANSDERMAL PATCH WEEKLY apply 2 patches q week for HTN CLONIDINE HCL 17802288957 Active Robbie Busby MD Active DOXAZOSIN MESYLATE 4 MG ORAL TABLET Take one by mouth daily DOXAZOSIN MESYLATE 96138335531 Active Robbie Busby MD Active TOPROL XL 200 MG ORAL TABLET EXTENDED RELEASE 24 HOUR Take one by mouth daily METOPROLOL SUCCINATE 42906833065 Active Robbie Busby MD Active VENLAFAXINE HCL ER 150 MG ORAL TABLET EXTENDED RELEASE 24 HOUR Take one by mouth daily VENLAFAXINE HCL 01351917466 Active Robbie Busby MD Active LIPITOR 40 MG ORAL TABLET Take one by mouth daily ATORVASTATIN CALCIUM 14718660921 Active Robbie Busby MD Active ISOSORBIDE DINITRATE 30 MG ORAL TABLET Take one by mouth daily ISOSORBIDE DINITRATE 30 MG ORAL TABLET 468549 ISOSORBIDE DINITRATE Inactive NORVASC 10 MG ORAL TABLET 1 tablet by mouth daily NORVASC 10 MG ORAL TABLET 755180 AMLODIPINE BESYLATE Inactive AZITHROMYCIN 250 MG ORAL TABLET 2 tablets PO today---then, 1 tablet PO daily x 4 more days (and 1 optional refill) AZITHROMYCIN 250 MG ORAL TABLET 401446 AZITHROMYCIN Inactive CHERATUSSIN AC 100-10 MG/5ML ORAL SOLUTION 7.5 mL PO q 4-6 hrs PRN cough 2014 CHERATUSSIN AC 100-10 MG/5ML ORAL SOLUTION 659900 GUAIFENESIN-CODEINE Inactive VIIBRYD 40 MG ORAL TABLET take 1 tab po qday for depression. 2014 VIIBRYD 40 MG ORAL TABLET VILAZODONE HCL Inactive HYDRALAZINE HCL 25 MG ORAL TABLET 1 tablet by mouth tid for hypertension 2013 HYDRALAZINE HCL 25 MG ORAL TABLET 241899 HYDRALAZINE HCL Inactive SPIRONOLACTONE 50 MG ORAL TABLET 1 tablet by mouth twice a day SPIRONOLACTONE 50 MG ORAL TABLET 496587 SPIRONOLACTONE Inactive FENOFIBRATE 145 MG ORAL TABLET Take one by mouth daily FENOFIBRATE 145 MG ORAL TABLET 879520 FENOFIBRATE Inactive PROTONIX 40 MG INTRAVENOUS SOLUTION RECONSTITUTED 1 po qday for acid reflux PROTONIX 40 MG INTRAVENOUS SOLUTION RECONSTITUTED 269938 PANTOPRAZOLE SODIUM Inactive CEFDINIR 300 MG ORAL CAPSULE Take 1 cap po bid x 10 days CEFDINIR 300 MG ORAL CAPSULE 221966 CEFDINIR Inactive PREDNISONE 20 MG ORAL TABLET 1 tablet twice daily for 2 days, then 1 tablet once daily for 2 days PREDNISONE 20 MG ORAL TABLET 302867 PREDNISONE Inactive NYSTATIN 110564 UNIT/ML MOUTH/THROAT SUSPENSION 5mL po QID x 10 days NYSTATIN 947591 UNIT/ML MOUTH/THROAT SUSPENSION 595214 NYSTATIN Inactive BETADINE 10 % EXTERNAL SOLUTION 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 07/29 BETADINE 10 % EXTERNAL SOLUTION 6286324 POVIDONE-IODINE Inactive TRILEPTAL 150 MG ORAL TABLET 1 TAB PO Q HS TRILEPTAL 150 MG ORAL TABLET 163862 OXCARBAZEPINE Inactive LAMISIL 125 MG ORAL PACKET 1 TAB PO DAILY LAMISIL 125 MG ORAL PACKET TERBINAFINE HCL Inactive HYDROCHLOROTHIAZIDE TABLET Take one by mouth daily HYDROCHLOROTHIAZIDE TABLET HYDROCHLOROTHIAZIDE TABS Inactive HYDROCODONE-ACETAMINOPHEN 5-325 MG ORAL TABLET 1 tab by mouth BID prn back pain HYDROCODONE-ACETAMINOPHEN 5-325 MG ORAL TABLET 622287 HYDROCODONE-ACETAMINOPHEN Inactive HYDRALAZINE HCL 50 MG ORAL TABLET TWO BY MOUTH THREE TIMES DAILY HYDRALAZINE HCL 50 MG ORAL TABLET 596905 HYDRALAZINE HCL Inactive LEVAQUIN 500 MG ORAL TABLET 1 tablet by mouth daily for 7 days LEVAQUIN 500 MG ORAL TABLET 414709 LEVOFLOXACIN Inactive SPIRONOLACTONE 25 MG ORAL TABLET 4 tablets by mouth daily SPIRONOLACTONE 25 MG ORAL TABLET 107927 SPIRONOLACTONE Inactive MECLIZINE HCL 25 MG ORAL TABLET one 4 times a day as needed for dizziness MECLIZINE HCL 25 MG ORAL TABLET 935751 MECLIZINE HCL Inactive CLONIDINE HCL 0.2 MG ORAL TABLET 1 TAB BY MOUTH EVERY 8 HOURS CLONIDINE HCL 0.2 MG ORAL TABLET 916420 CLONIDINE HCL Inactive CYCLOBENZAPRINE HCL 10 MG ORAL TABLET 1 tablet by mouth three times daily as needed for muscle spasm/pain for 10 days CYCLOBENZAPRINE HCL 10 MG ORAL TABLET 292116 CYCLOBENZAPRINE HCL Inactive VITAMIN D3 97736 UNIT ORAL CAPSULE 2 CAPS PO WEEKLY VITAMIN D3 80880 UNIT ORAL CAPSULE CHOLECALCIFEROL Inactive FIORICET 50-300-40 MG ORAL CAPSULE take 1 tab po qday prn migraines. FIORICET 50-300-40 MG ORAL CAPSULE 075749 BUTALBITAL-APAP- CAFFEINE Inactive FLONASE 50 MCG/ACT NASAL SUSPENSION 1 spray each nostril twice daily for allergies and runny nose FLONASE 50 MCG/ACT NASAL SUSPENSION 2908361 FLUTICASONE PROPIONATE Inactive LORATADINE 10 MG ORAL TABLET 1 tablet by mouth daily for congestion and allergies. LORATADINE 10 MG ORAL TABLET 600094 LORATADINE Inactive NITROSTAT 0.4 MG SUBLINGUAL TABLET SUBLINGUAL PRN NITROSTAT 0.4 MG SUBLINGUAL TABLET SUBLINGUAL 080228 NITROGLYCERIN Inactive GUAIFENESIN ER 600 MG ORAL TABLET EXTENDED RELEASE 12 HOUR 1 tab po q am 2016 GUAIFENESIN ER 600 MG ORAL TABLET EXTENDED RELEASE 12 HOUR GUAIFENESIN Inactive CYCLOBENZAPRINE HCL 10 MG ORAL TABLET 1 po TID PRN muscle spasm/pain for 10 days CYCLOBENZAPRINE HCL 10 MG ORAL TABLET 520261 CYCLOBENZAPRINE HCL Inactive TOPIRAMATE 50 MG ORAL TABLET take 1 tab po BID for migraines. TOPIRAMATE 50 MG ORAL TABLET 163368 TOPIRAMATE Inactive PREDNISONE 20 MG ORAL TABLET two tabs by mouth today, then one tab by mouth days two and three PREDNISONE 20 MG ORAL TABLET 412890 PREDNISONE Inactive ZITHROMAX 250 MG ORAL TABLET 2 po today, then 1 po q days 2-5 ZITHROMAX 250 MG ORAL TABLET 078630 AZITHROMYCIN Inactive TERBINAFINE HCL 250 MG ORAL TABLET 1 tab po qday for foot infection TERBINAFINE HCL 250 MG ORAL TABLET 227262 TERBINAFINE HCL Inactive KEFLEX 500 MG ORAL CAPSULE 1 po TID x 10 days KEFLEX 500 MG ORAL CAPSULE 146525 CEPHALEXIN Inactive BACTRIM DS 800-160 MG ORAL TABLET 1 tab by mouth twice daily 2015 BACTRIM DS 800-160 MG ORAL TABLET 750302 TRIMETHOPRIM- SULFAMETHOXAZOLE Inactive PREDNISONE 20 MG ORAL TABLET take 3 tabs daily for 3 days, 2 tabs daily for 3 days, 1 tab daily for 3 days, 1/2 tab daily for 4 days PREDNISONE 20 MG ORAL TABLET 304680 PREDNISONE Inactive AZITHROMYCIN 250 MG ORAL TABLET 2 po qd x 1 day, then 1 po qd x 4 days 09/20 AZITHROMYCIN 250 MG ORAL TABLET 441316 AZITHROMYCIN Inactive Advance Directives Directive Description Start [...] AUTO - Chemistry sodium, serum 142 mmol/L 026-851 9125/07/17 carbon dioxide, venous blood 28.2 mmol/L 21.0-32.0 [...] % 11.0-15.0 platelet count 185 THOUSAND/UL 10*3/mm3 988-799 8994/04/14 mean platelet volume 10.9 fL 7.5-12.5 Lab Report: HGBA1C, Basic Metabolic Panel - Chemistry hemoglobin A1C, blood, as % of total hemoglobin 6.9 % 4.3-6.0 sodium, serum 139 mmol/L 643-330 8071/01/04 potassium, serum 3.9 mmol/L 3.5-5.2 chloride, serum 103 mmol/L 98-107 carbon dioxide, venous blood 26.9 mmol/L 21.0-32.0 blood glucose 106 mg/dL 65-110 calcium, serum 9.0 mg/dL 8.5-10.1 urea nitrogen, blood 20 mg/dL 7-18 creatinine, serum 1.46 mg/dL 0.60-1.30 Lab Report: LIPID PANEL, TSH/899, T4, FREE/866 - Chemistry cholesterol, serum 220 mg/dL 325-257 8096/04/14 HDL cholesterol, serum 30 mg/dL > OR=40 [...] 1.80 ng/mL 0.00-4.00 Lab Report: VITAMIN D, 25-HYDROXY/18107 - Chemistry vitamin D 25-hydroxy, serum 25 ng/mL 30-100 Office Visit: Confusion, dizziness after fall - Basic LDL target level 130 mg/dL Office Visit: Confusion, dizziness after fall - Chemistry HDL cholesterol, serum, target level 40 mg/dL triglyceride, target level 150 mg/dL cholesterol, target level 200 mg/dL Encounters Code Encounter Date Provider Facility CPT-33365 Level 4 Est. Patient 13:07:39 FUNERAL SALES MANAGER Robbie Busby MD [facility] CPT-39803 Level 4 Est. Patient 15:23:44 FUNERAL SALES MANAGER Desmond Diaz [facility] CPT-86578 Level 3 Est. Patient 15:40:49 CDT Robbie Busby MD [facility] CPT-46106 Level 4 Est. Patient 15:18:19 CDT Robbie Busby MD [facility] CPT-87827 Level 3 Est. Patient 09:00:37 CDT Rober Rodríguez [facility] CPT-75662 Level 3 Est. Patient 16:07:10 CDT Robbie Busby MD [facility] CPT-64920 Level 4 Est. Patient 11:56:16 CDT Erin Garsia [facility] CPT-06880 Level 3 Est. Patient 17:48:02 CDT Robbie Busby MD [facility] CPT-28151 Level 4 Est. Patient 12:00:49 FUNERAL SALES MANAGER Rober Rodríguez [facility] CPT-63445 Level 3 Est. Patient 09:16:37 CDT Robbie Busby MD [facility] CPT-04015 Level 3 Est. Patient 19:38:43 CDT Robbie Busby MD [facility] CPT-42672 Level 3 Est. Patient 11:53:38 CDT Robbie Busby MD [facility] CPT-17044 Level 4 Est. Patient 12:52:22 CDT Rober Rodríguez [facility] CPT-36133 Level 4 Est. Patient 22:55:17 CDT Robbie Busby MD [facility] CPT-25750 Level 3 Est. Patient 12:38:24 CDT Desmond Diaz [facility] CPT-80541 Level 4 Est. Patient 11:25:03 FUNERAL SALES MANAGER Robbie Busby MD [facility] CPT-32060 Level 4 Est. Patient 14:50:10 CDT Robbie Busby MD [facility] CPT-72617 Level 4 Est. Patient 23:30:43 CDT Robbie Busby MD [facility] CPT-35487 Level 4 Est. Patient 10:30:43 CDT Robbie Busby MD [facility] CPT-61382 Level 3 Est. Patient 17:08:12 CDT Alex Shaw [facility] CPT-44854 Level 4 Est. Patient 17:51:38 CDT Robbie Busby MD [facility] CPT-98172 Level 4 Est. Patient 14:00:21 CDT Robbie Busby MD [facility] CPT-69622 Level 4 Est. Patient 12:46:48 CDT Robbie Busby MD [facility] CPT-95697 Level 4 Est. Patient 13:34:33 CDT Robbie Busby MD [facility] CPT-83303 Level 4 Est. Patient 16:58:28 CDT Robbie Busby MD [facility] CPT-09084 Level 3 Est. Patient 19:36:53 CDT Alex ALVAREZ [facility] CPT-83842 Level 3 Est. Patient 12:58:15 CDT Robbie Busby MD [facility] Procedures Code Procedure Name Date Entry Date Standard Description CPT-J1071 Depo Testosterone 200mg 15:33:58 FUNERAL SALES MANAGER CPT-35100 Abx/Therapy Injection 15:33:58 FUNERAL SALES MANAGER CPT-J1071 Depo Testosterone 200mg 09:38:36 FUNERAL SALES MANAGER CPT-02475 Abx/Therapy Injection 09:38:36 FUNERAL SALES MANAGER CPT-J1071 Depo Testosterone 200mg 10:22:56 FUNERAL SALES MANAGER CPT-16851 Abx/Therapy Injection 10:22:56 FUNERAL SALES MANAGER CPT-J1071 Depo Testosterone 200mg 15:40:23 CDT CPT-47592 Abx/Therapy Injection 15:40:23 CDT CPT-J1071 Depo Testosterone 200mg 14:20:43 CDT CPT-27674 Abx/Therapy Injection 14:20:43 CDT CPT-J1071 Depo Testosterone 200mg 14:17:22 CDT CPT-58347 Abx/Therapy Injection 14:17:22 CDT CPT-J1071 Depo Testosterone 200mg 09:03:53 CDT CPT-46968 Abx/Therapy Injection 09:03:53 CDT CPT-G0439 [facility] Annual Wellness Exam 16:47:44 CDT CPT-J1071 Depo Testosterone 200mg 09:06:28 CDT CPT-03847 Abx/Therapy Injection 09:06:28 CDT CPT-J1071 Depo Testosterone 200mg 08:30:01 CDT CPT-36138 Abx/Therapy Injection 08:30:01 CDT CPT-J1071 Depo Testosterone 200mg 08:24:00 CDT CPT-50766 Abx/Therapy Injection 08:24:00 CDT CPT-68195 Venipuncture Draw Fee 14:39:06 CDT CPT-91867 Ribs unilateral 2V - XRAY USE ONLY 12:10:11 CDT CPT-94408 First Vx - Ix admin for Medicare patients 16:32:53 CDT CPT-03576 Boostrix Intramuscular Suspension 5-2.5-18.5 16:32:53 CDT CPT-82858 TB Skin Test 11:42:28 CDT CPT-54345 Tdap 7yrs or > 11:42:28 CDT CPT-J0696 Rocephin 1000 mg (Ceftriaxone) 17:43:43 FUNERAL SALES MANAGER CPT-J1040 Depo Medrol 80 mg (Methyl Prednisolone Acetate) 17:43: 43 FUNERAL SALES MANAGER CPT-J1100 Decadron 8mg (Dexamethasone) 17:43:42 FUNERAL SALES MANAGER CPT-92302 Abx/Therapy Injection 17:43:42 FUNERAL SALES MANAGER CPT-87796 Abx/Therapy Injection 17:43:42 FUNERAL SALES MANAGER CPT-J1040 Depo Medrol 80 mg (Methyl Prednisolone Acetate) 09:43: 34 FUNERAL SALES MANAGER CPT-J1100 Decadron 8mg (Dexamethasone) 09:43:34 FUNERAL SALES MANAGER CPT-J0696 Rocephin 1gm Inj Solr 09:43:34 FUNERAL SALES MANAGER CPT-43217 Wound Culture - LAB USE ONLY 14:00:21 CDT CPT-I/D I/D Abscess 09:16:37 CDT CPT-61265 Venipuncture Draw Fee 15:20:23 CDT CPT-44193 Microalbumin - LAB USE ONLY 16:02:19 CDT CPT-42407 CBC - LAB USE ONLY 16:02:19 CDT CPT-26077 Venipuncture Draw Fee 16:02:19 CDT CPT-G0438 Initial Annual Wellness Exam 08:10:28 CDT CPT-95984 Venipuncture Draw Fee 13:07:17 CDT CPT-G0008 Administration of Influenza Virus Vaccine 16:09:59 CDT CPT-06409 Fluzone Quadrivalent Intramuscular Suspension 0.5 ML 16: 09:59 CDT CPT-59448 Spec Collection and Handling Fee 15:05:50 [email or web address]
--- OUTSIDE RECORDS SUMMARY | 2018-04-18 10:45 | XMS REPORT | Clinical Summary ---
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 Desmond Diaz DO Other malignant secondary hypertension Tachycardia 785.0 Active Rober Rodríguez SPORTS ATTORNEY Tachycardia, unspecified Insect bite, infected 919.5 Resolved Desmond Diaz DO Insect bite, nonvenomous, of other, multiple, and unspecified sites, infected Abscess, skin 682.9 Resolved Desmond Diaz DO Cellulitis and abscess of unspecified sites URI 465.9 Resolved Desmond Diaz DO Acute upper respiratory infections of unspecified site Hypertension 401.9 Active Rober Rodríguez SPORTS ATTORNEY Unspecified essential hypertension Sinusitis - acute 461.9 [...] Hypogonadism, low testosterone 257.2 Active Erin Mai SPORTS ATTORNEY Other testicular hypofunction Low back pain, chronic [...] 37.0-37.9, adult Sinusitis ICD-461.9 Inactive Emily Atwood PACKAGE SEALER 2017 Low back pain, acute ICD-724.2 Inactive Emily Atwood PACKAGE SEALER Low back pain, chronic ICD-724.2 Inactive Emily Atwood PACKAGE SEALER Bronchitis, acute ICD-466.0 Inactive Emily Atwood PACKAGE SEALER Onychomycosis, toenails ICD-110.1 Inactive Emily Atwood PACKAGE SEALER Dizziness ICD-780.4 Inactive Emily Atwood PACKAGE SEALER 2017 Folliculitis ICD-704.8 Inactive Emily Atwood PACKAGE SEALER Pharyngitis-Acute ICD-462 Inactive Emily Atwood PACKAGE SEALER Fatigue ICD-780.79 Inactive Emily Atwood PACKAGE SEALER 09/20 Hypertension, secondary, malignant ICD-405.09 Inactive Emily Atwood PACKAGE SEALER Insect bite, infected ICD-919.5 Inactive Emily Atwood PACKAGE SEALER Abscess, skin ICD-682.9 Inactive Emily Atwood PACKAGE SEALER URI ICD-465.9 Inactive Emily Atwood PACKAGE SEALER Sinusitis - acute ICD-461.9 Inactive Emily Atwood PACKAGE SEALER Acute confusion ICD-293.0 Inactive Emily Atwood PACKAGE SEALER Headache ICD-784.0 Inactive Emily Rai CISSE 09/20 Back pain ICD-724.5 Inactive Emily Atwoodnae CISSE 2017 Rib pain, right sided ICD-786.50 Inactive Emily Rai LOPEZN Myalgias ICD-729.1 Inactive Emily Rai LOPEZN 09/20 URI ICD-465.9 Inactive Emily Rai CISSE Bronchitis-Acute ICD-466.0 Inactive Desmond Diaz DO Medication List Medication Instructions Start Date Stop Date Generic Name NDC Status Provider Patient Instruction METOPROLOL SUCCINATE ER 200 MG ORAL TABLET EXTENDED RELEASE 24 HOUR take 1 tab po qday for high blood pressure and rapid pulse METOPROLOL SUCCINATE 84237767400 Active Robbie Busby MD Active [id number]-9 0.3 MG/24HR TRANSDERMAL PATCH WEEKLY apply 2 patches q week for HTN CLONIDINE HCL 67945946974 No Longer Active Robbie Busby MD Active IMDUR 60 MG ORAL TABLET EXTENDED RELEASE 24 HOUR take 1 tab po qday for blood pressure ISOSORBIDE MONONITRATE 83953109480 No Longer Active Robbie Busby MD Active TEMAZEPAM 15 MG ORAL CAPSULE 1 TAB PO Q HS TEMAZEPAM 56557270184 No Longer Active Robbie Busby MD Active TOPIRAMATE 50 MG ORAL TABLET 1 po BID for migraines TOPIRAMATE 67745882123 No Longer Active Robbie Busby MD Active CYCLOBENZAPRINE HCL 10 MG ORAL TABLET 1 tablet by mouth three times daily as needed for muscle spasm/pain CYCLOBENZAPRINE HCL 46678349387 No Longer Active Robbie Busby MD Active TOPROL XL 200 MG ORAL TABLET EXTENDED RELEASE 24 HOUR Take one by mouth daily METOPROLOL SUCCINATE 28709050743 No Longer Active Robbie Busby MD Active METFORMIN HCL 500 MG ORAL TABLET 1 tablet by mouth daily for diabetes type 2 METFORMIN HCL 92598269465 Active Robbie Busby MD Active SINGULAIR 10 MG ORAL TABLET 1 po qday for allergies. MONTELUKAST SODIUM 29198381355 No Longer Active Robbie Busby MD Active PREDNISONE 20 MG ORAL TABLET two tabs by mouth today, then one tab by mouth days two and three PREDNISONE 28427018499 No Longer Active Robbie Busby MD Active AZITHROMYCIN 250 MG ORAL TABLET 2 po qd x 1 day, then 1 po qd x 4 days 09/20 AZITHROMYCIN 38461986441 No Longer Active Desmond Diaz DO Active TOPIRAMATE 50 MG ORAL TABLET take 1 tab po BID for migraines. TOPIRAMATE 03448818645 No Longer Active Desmond Diaz DO Active CYCLOBENZAPRINE HCL 10 MG ORAL TABLET 1 po TID PRN muscle spasm/pain for 10 days CYCLOBENZAPRINE HCL 02448320283 No Longer Active Desmond Diaz DO Active GUAIFENESIN ER 600 MG ORAL TABLET EXTENDED RELEASE 12 HOUR 1 tab po q am 2016 GUAIFENESIN 18611640524 No Longer Active Robbie Busby MD Active DIVALPROEX SODIUM ER 500 MG ORAL TABLET EXTENDED RELEASE 24 HOUR Once daily DIVALPROEX SODIUM 11623377602 Active Robbie Busby MD Active DEPO-TESTOSTERONE 200 MG/ML INTRAMUSCULAR SOLUTION 1 IM Injections every 2 weeks for low testosterone TESTOSTERONE CYPIONATE 58175174255 Active Zulema Blank LPN Active FLUTICASONE PROPIONATE 50 MCG/ACT NASAL SUSPENSION 2 sprays per nostril bid for 1 week, then 1 spray bid FLUTICASONE PROPIONATE 73461131352 Active Rober Rodríguez APRN Active HYDRALAZINE HCL 25 MG ORAL TABLET Take 1 tab BID. HYDRALAZINE HCL 61057657137 Active Rober Rodríguez APRN Active VITAMIN D3 56300 UNIT ORAL TABLET 2 po weekly CHOLECALCIFEROL 53189068389 Active Robbie Busby MD Active OXYCODONE HCL ER 10 MG ORAL TABLET ER 12 HOUR ABUSE-DETERRENT 1 tab po 3 times qd. OXYCODONE HCL 34890910224 Active Robbie Busby MD Active NITROSTAT 0.4 MG SUBLINGUAL TABLET SUBLINGUAL PRN NITROGLYCERIN 82503030406 No Longer Active Robbie Busby MD Active LORATADINE 10 MG ORAL TABLET 1 tablet by mouth daily for congestion and allergies. LORATADINE 20102721702 No Longer Active Robbie Busby MD Active FLONASE 50 MCG/ACT NASAL SUSPENSION 1 spray each nostril twice daily for allergies and runny nose FLUTICASONE PROPIONATE 15362743326 No Longer Active Robbie Busby MD Active FIORICET 50-300-40 MG ORAL CAPSULE take 1 tab po qday prn migraines. [id number] 79554402453 No Longer Active Robbie Busby MD Active VITAMIN D3 61613 UNIT ORAL CAPSULE 2 CAPS PO WEEKLY CHOLECALCIFEROL 10827192933 No Longer Active Robbie Busby MD Active CYCLOBENZAPRINE HCL 10 MG ORAL TABLET 1 tablet by mouth three times daily as needed for muscle spasm/pain for 10 days CYCLOBENZAPRINE HCL 95727347416 No Longer Active Robbie Busby MD Active PREDNISONE 20 MG ORAL TABLET take 3 tabs daily for 3 days, 2 tabs daily for 3 days, 1 tab daily for 3 days, 1/2 tab daily for 4 days PREDNISONE 04641306603 No Longer Active Erin Mai APRN Active CLONIDINE HCL 0.2 MG ORAL TABLET 1 TAB BY MOUTH EVERY 8 HOURS CLONIDINE HCL 60037980357 No Longer Active Erin Mai APRN Active MECLIZINE HCL 25 MG ORAL TABLET one 4 times a day as needed for dizziness MECLIZINE HCL 40941680482 No Longer Active Erin Arell SPORTS ATTORNEY Active SPIRONOLACTONE 25 MG ORAL TABLET 4 tablets by mouth daily SPIRONOLACTONE 61673255200 No Longer Active Erin Arell SPORTS ATTORNEY Active LEVAQUIN 500 MG ORAL TABLET 1 tablet by mouth daily for 7 days LEVOFLOXACIN 37569185843 No Longer Active Erin Riverall SPORTS ATTORNEY Active BACTRIM DS 800-160 MG ORAL TABLET 1 tab by mouth twice daily 2015 TRIMETHOPRIM-SULFAMETHOXAZOLE 32977986021 No Longer Active Robbie Busby MD Active HYDRALAZINE HCL 50 MG ORAL TABLET TWO BY MOUTH THREE TIMES DAILY HYDRALAZINE HCL 79768803252 No Longer Active 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 SPORTS ATTORNEY Active HYDROCODONE-ACETAMINOPHEN 5-325 MG ORAL TABLET 1 tab by mouth BID prn back pain HYDROCODONE-ACETAMINOPHEN 52917013204 No Longer Active 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 SPORTS ATTORNEY Active HYDROCHLOROTHIAZIDE TABLET Take one by mouth daily HYDROCHLOROTHIAZIDE TABS 55465960443 No Longer Active 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 SPORTS ATTORNEY Active LAMISIL 125 MG ORAL PACKET 1 TAB PO DAILY TERBINAFINE HCL 01318840514 No Longer Active 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 SPORTS ATTORNEY Active TRILEPTAL 150 MG ORAL TABLET 1 TAB PO Q HS OXCARBAZEPINE 40894389557 No Longer Active 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 SPORTS ATTORNEY Active BETADINE 10 % EXTERNAL SOLUTION 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 07/29 POVIDONE-IODINE 92933732170 No Longer Active 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 SPORTS ATTORNEY Active NYSTATIN 136093 UNIT/ML MOUTH/THROAT SUSPENSION 5mL po QID x 10 days NYSTATIN 18293268846 No Longer Active Erin Riverall SPORTS ATTORNEY Active PREDNISONE 20 MG ORAL TABLET 1 tablet twice daily for 2 days, then 1 tablet once daily for 2 days PREDNISONE 76770532642 No Longer Active Robbie Busby MD Active CEFDINIR 300 MG ORAL CAPSULE Take 1 cap po bid x 10 days CEFDINIR 45965464437 No Longer Active Robbie Busby MD Active AMLODIPINE BESYLATE 10 MG ORAL TABLET 1 tablet by mouth daily AMLODIPINE BESYLATE 71463637329 Active Robbie Busby MD Active CARVEDILOL 25 MG ORAL TABLET 1 & 1/2 TAB po BID CARVEDILOL 44197314973 Active Robbie Busby MD Active NEXIUM 40 MG ORAL CAPSULE DELAYED RELEASE 1 cap by mouth daily ESOMEPRAZOLE MAGNESIUM 47052677972 Active Robbie Busby MD Active PROTONIX 40 MG INTRAVENOUS SOLUTION RECONSTITUTED 1 po qday for acid reflux PANTOPRAZOLE SODIUM 36206619914 No Longer Active Galileonila Negro Active KEFLEX 500 MG ORAL CAPSULE 1 po TID x 10 days CEPHALEXIN 45379757511 No Longer Active Robbie Busby MD Active ALPRAZOLAM 2 MG ORAL TABLET 1 TAB PO BID ALPRAZOLAM 16483596102 Active Robbie Busby MD Active FENOFIBRATE 145 MG ORAL TABLET Take one by mouth daily FENOFIBRATE 74991657820 No Longer Active Robbie Busby MD Active SPIRONOLACTONE 50 MG ORAL TABLET 1 tablet by mouth twice a day SPIRONOLACTONE 92045101487 No Longer Active Robbie Busby MD Active HYDRALAZINE HCL 25 MG ORAL TABLET 1 tablet by mouth tid for hypertension 2013 HYDRALAZINE HCL 88764126443 No Longer Active Robbie Busby MD Active VIIBRYD 40 MG ORAL TABLET take 1 tab po qday for depression. 2014 VILAZODONE HCL 11957834388 No Longer Active Robbie Busby MD Active TERBINAFINE HCL 250 MG ORAL TABLET 1 tab po qday for foot infection TERBINAFINE HCL 26429703959 No Longer Active Robbie Busby MD Active GABAPENTIN 300 MG ORAL CAPSULE 1 po q hs for nerve pain GABAPENTIN 35209202794 Active Robbie Busby MD Active CHERATUSSIN AC 100-10 MG/5ML ORAL SOLUTION 7.5 mL PO q 4-6 hrs PRN cough 2014 GUAIFENESIN-CODEINE 62470053960 No Longer Active Robbie Busby MD Active AZITHROMYCIN 250 MG ORAL TABLET 2 tablets PO today---then, 1 tablet PO daily x 4 more days (and 1 optional refill) AZITHROMYCIN 08571267732 No Longer Active Robbie Busby MD Active NORVASC 10 MG ORAL TABLET 1 tablet by mouth daily AMLODIPINE BESYLATE 63891019836 No Longer Active Alex ALVAREZ Active ISOSORBIDE DINITRATE 30 MG ORAL TABLET Take one by mouth daily ISOSORBIDE DINITRATE 17582527281 No Longer Active Robbie Busby MD Active VIIBRYD 40 MG ORAL TABLET 1 TA B PO DAILY VILAZODONE HCL 29270234888 Active Robbie Busby MD Active ZITHROMAX 250 MG ORAL TABLET 2 po today, then 1 po q days 2-5 AZITHROMYCIN 15546963845 No Longer Active Robbie Busby MD Active DOXAZOSIN MESYLATE 4 MG ORAL TABLET Take one by mouth daily DOXAZOSIN MESYLATE 80882059963 Active Robbie Busby MD Active VENLAFAXINE HCL ER 150 MG ORAL TABLET EXTENDED RELEASE 24 HOUR Take one by mouth daily VENLAFAXINE HCL 77567222957 Active Robbie Busby MD Active LIPITOR 40 MG ORAL TABLET Take one by mouth daily ATORVASTATIN CALCIUM 60285857924 Active Robbie Busby MD Active ISOSORBIDE DINITRATE 30 MG ORAL TABLET Take one by mouth daily ISOSORBIDE DINITRATE 30 MG ORAL TABLET 027543 ISOSORBIDE DINITRATE Inactive NORVASC 10 MG ORAL TABLET 1 tablet by mouth daily NORVASC 10 MG ORAL TABLET 742210 AMLODIPINE BESYLATE Inactive AZITHROMYCIN 250 MG ORAL TABLET 2 tablets PO today---then, 1 tablet PO daily x 4 more days (and 1 optional refill) AZITHROMYCIN 250 MG ORAL TABLET 930109 AZITHROMYCIN Inactive CHERATUSSIN AC 100-10 MG/5ML ORAL SOLUTION 7.5 mL PO q 4-6 hrs PRN cough 2014 CHERATUSSIN AC 100-10 MG/5ML ORAL SOLUTION 141683 GUAIFENESIN-CODEINE Inactive VIIBRYD 40 MG ORAL TABLET take 1 tab po qday for depression. 2014 VIIBRYD 40 MG ORAL TABLET VILAZODONE HCL Inactive HYDRALAZINE HCL 25 MG ORAL TABLET 1 tablet by mouth tid for hypertension 2013 HYDRALAZINE HCL 25 MG ORAL TABLET 423676 HYDRALAZINE HCL Inactive SPIRONOLACTONE 50 MG ORAL TABLET 1 tablet by mouth twice a day SPIRONOLACTONE 50 MG ORAL TABLET 195609 SPIRONOLACTONE Inactive FENOFIBRATE 145 MG ORAL TABLET Take one by mouth daily FENOFIBRATE 145 MG ORAL TABLET 803524 FENOFIBRATE Inactive PROTONIX 40 MG INTRAVENOUS SOLUTION RECONSTITUTED 1 po qday for acid reflux PROTONIX 40 MG INTRAVENOUS SOLUTION RECONSTITUTED 494326 PANTOPRAZOLE SODIUM Inactive CEFDINIR 300 MG ORAL CAPSULE Take 1 cap po bid x 10 days CEFDINIR 300 MG ORAL CAPSULE 351548 CEFDINIR Inactive PREDNISONE 20 MG ORAL TABLET 1 tablet twice daily for 2 days, then 1 tablet once daily for 2 days PREDNISONE 20 MG ORAL TABLET 367976 PREDNISONE Inactive NYSTATIN 564205 UNIT/ML MOUTH/THROAT SUSPENSION 5mL po QID x 10 days NYSTATIN 335729 UNIT/ML MOUTH/THROAT SUSPENSION 604462 NYSTATIN Inactive BETADINE 10 % EXTERNAL SOLUTION 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 07/29 BETADINE 10 % EXTERNAL SOLUTION 9705316 POVIDONE-IODINE Inactive TRILEPTAL 150 MG ORAL TABLET 1 TAB PO Q HS TRILEPTAL 150 MG ORAL TABLET 460699 OXCARBAZEPINE Inactive LAMISIL 125 MG ORAL PACKET 1 TAB PO DAILY LAMISIL 125 MG ORAL PACKET TERBINAFINE HCL Inactive HYDROCHLOROTHIAZIDE TABLET Take one by mouth daily HYDROCHLOROTHIAZIDE TABLET HYDROCHLOROTHIAZIDE TABS Inactive HYDROCODONE-ACETAMINOPHEN 5-325 MG ORAL TABLET 1 tab by mouth BID prn back pain HYDROCODONE-ACETAMINOPHEN 5-325 MG ORAL TABLET 814887 HYDROCODONE-ACETAMINOPHEN Inactive HYDRALAZINE HCL 50 MG ORAL TABLET TWO BY MOUTH THREE TIMES DAILY HYDRALAZINE HCL 50 MG ORAL TABLET 115711 HYDRALAZINE HCL Inactive LEVAQUIN 500 MG ORAL TABLET 1 tablet by mouth daily for 7 days LEVAQUIN 500 MG ORAL TABLET 022385 LEVOFLOXACIN Inactive SPIRONOLACTONE 25 MG ORAL TABLET 4 tablets by mouth daily SPIRONOLACTONE 25 MG ORAL TABLET 352512 SPIRONOLACTONE Inactive MECLIZINE HCL 25 MG ORAL TABLET one 4 times a day as needed for dizziness MECLIZINE HCL 25 MG ORAL TABLET 123649 MECLIZINE HCL Inactive CLONIDINE HCL 0.2 MG ORAL TABLET 1 TAB BY MOUTH EVERY 8 HOURS CLONIDINE HCL 0.2 MG ORAL TABLET 307817 CLONIDINE HCL Inactive CYCLOBENZAPRINE HCL 10 MG ORAL TABLET 1 tablet by mouth three times daily as needed for muscle spasm/pain for 10 days CYCLOBENZAPRINE HCL 10 MG ORAL TABLET 895232 CYCLOBENZAPRINE HCL Inactive VITAMIN D3 67209 UNIT ORAL CAPSULE 2 CAPS PO WEEKLY VITAMIN D3 71748 UNIT ORAL CAPSULE CHOLECALCIFEROL Inactive FIORICET 50-300-40 MG ORAL CAPSULE take 1 tab po qday prn migraines. FIORICET 50-300-40 MG ORAL CAPSULE 306757 BUTALBITAL-APAP- CAFFEINE Inactive FLONASE 50 MCG/ACT NASAL SUSPENSION 1 spray each nostril twice daily for allergies and runny nose FLONASE 50 MCG/ACT NASAL SUSPENSION 7726311 FLUTICASONE PROPIONATE Inactive LORATADINE 10 MG ORAL TABLET 1 tablet by mouth daily for congestion and allergies. LORATADINE 10 MG ORAL TABLET 426956 LORATADINE Inactive NITROSTAT 0.4 MG SUBLINGUAL TABLET SUBLINGUAL PRN NITROSTAT 0.4 MG SUBLINGUAL TABLET SUBLINGUAL 306880 NITROGLYCERIN Inactive GUAIFENESIN ER 600 MG ORAL TABLET EXTENDED RELEASE 12 HOUR 1 tab po q am 2016 GUAIFENESIN ER 600 MG ORAL TABLET EXTENDED RELEASE 12 HOUR GUAIFENESIN Inactive CYCLOBENZAPRINE HCL 10 MG ORAL TABLET 1 po TID PRN muscle spasm/pain for 10 days CYCLOBENZAPRINE HCL 10 MG ORAL TABLET 436832 CYCLOBENZAPRINE HCL Inactive TOPIRAMATE 50 MG ORAL TABLET take 1 tab po BID for migraines. TOPIRAMATE 50 MG ORAL TABLET 065080 TOPIRAMATE Inactive PREDNISONE 20 MG ORAL TABLET two tabs by mouth today, then one tab by mouth days two and three PREDNISONE 20 MG ORAL TABLET 808861 PREDNISONE Inactive TOPROL XL 200 MG ORAL TABLET EXTENDED RELEASE 24 HOUR Take one by mouth daily TOPROL XL 200 MG ORAL TABLET EXTENDED RELEASE 24 HOUR METOPROLOL SUCCINATE Inactive CYCLOBENZAPRINE HCL 10 MG ORAL TABLET 1 tablet by mouth three times daily as needed for muscle spasm/pain CYCLOBENZAPRINE HCL 10 MG ORAL TABLET 153347 CYCLOBENZAPRINE HCL Inactive TOPIRAMATE 50 MG ORAL TABLET 1 po BID for migraines TOPIRAMATE 50 MG ORAL TABLET 423526 TOPIRAMATE Inactive TEMAZEPAM 15 MG ORAL CAPSULE 1 TAB PO Q HS TEMAZEPAM 15 MG ORAL CAPSULE 926228 TEMAZEPAM Inactive IMDUR 60 MG ORAL TABLET EXTENDED RELEASE 24 HOUR take 1 tab po qday for blood pressure IMDUR 60 MG ORAL TABLET EXTENDED RELEASE 24 HOUR ISOSORBIDE MONONITRATE Inactive [id number] 0.3 MG/24HR TRANSDERMAL PATCH WEEKLY apply 2 patches q week for HTN [id number] 0.3 MG/24HR TRANSDERMAL PATCH WEEKLY 969460 CLONIDINE HCL Inactive ZITHROMAX 250 MG ORAL TABLET 2 po today, then 1 po q days 2-5 ZITHROMAX 250 MG ORAL TABLET 087107 AZITHROMYCIN Inactive TERBINAFINE HCL 250 MG ORAL TABLET 1 tab po qday for foot infection TERBINAFINE HCL 250 MG ORAL TABLET 606285 TERBINAFINE HCL Inactive KEFLEX 500 MG ORAL CAPSULE 1 po TID x 10 days KEFLEX 500 MG ORAL CAPSULE 994535 CEPHALEXIN Inactive BACTRIM DS 800-160 MG ORAL TABLET 1 tab by mouth twice daily 2015 BACTRIM DS 800-160 MG ORAL TABLET 978636 TRIMETHOPRIM- SULFAMETHOXAZOLE Inactive PREDNISONE 20 MG ORAL TABLET take 3 tabs daily for 3 days, 2 tabs daily for 3 days, 1 tab daily for 3 days, 1/2 tab daily for 4 days PREDNISONE 20 MG ORAL TABLET 445691 PREDNISONE Inactive AZITHROMYCIN 250 MG ORAL TABLET 2 po qd x 1 day, then 1 po qd x 4 days 09/20 AZITHROMYCIN 250 MG ORAL TABLET 044706 AZITHROMYCIN Inactive SINGULAIR 10 MG ORAL TABLET 1 po qday for allergies. SINGULAIR 10 MG ORAL TABLET 382937 MONTELUKAST SODIUM Inactive Advance Directives Directive Description [...] AUTO - Chemistry sodium, serum 142 mmol/L 480-810 4650/07/17 carbon dioxide, venous blood 28.2 mmol/L 21.0-32.0 [...] % 11.0-15.0 platelet count 185 THOUSAND/UL 10*3/mm3 681-100 6258/04/14 mean platelet volume 10.9 fL 7.5-12.5 Lab Report: Comp. Metabolic Panel - Chemistry sodium, serum 141 mmol/L 202-661 5460/02/13 carbon dioxide, venous blood 23.9 mmol/L 21.0-32.0 [...] 6.9 % 4.3-6.0 sodium, serum 139 mmol/L 065-484 8261/01/04 potassium, serum 3.9 mmol/L 3.5-5.2 chloride, serum 103 mmol/L 98-107 carbon dioxide, venous blood 26.9 mmol/L 21.0-32.0 blood glucose 106 mg/dL 65-110 calcium, serum 9.0 mg/dL 8.5-10.1 urea nitrogen, blood 20 mg/dL 7-18 creatinine, serum 1.46 mg/dL 0.60-1.30 Lab Report: LIPID PANEL, TSH/899, T4, FREE/866 - Chemistry cholesterol, serum 220 mg/dL 457-219 2215/04/14 HDL cholesterol, serum 30 mg/dL > OR=40 [...] 1.80 ng/mL 0.00-4.00 Lab Report: VITAMIN D, 25-HYDROXY/39146 - Chemistry vitamin D 25-hydroxy, serum 25 ng/mL 30-100 Office Visit: Confusion, dizziness after fall - Basic LDL target level 130 mg/dL Office Visit: Confusion, dizziness after fall - Chemistry HDL cholesterol, serum, target level 40 mg/dL triglyceride, target level 150 mg/dL cholesterol, target level 200 mg/dL Encounters Code Encounter Date Provider Facility CPT-17179 Level 4 Est. Patient 09:50:01 [employer]IC[employer] PROCESS[employer] Robbie Busby MD [facility] CPT-19145 Level 4 Est. Patient 09:42:08 [employer]ICONDUCTOR PROCESSOR Robbie Busby MD [facility] CPT-19767 Level 4 Est. Patient 13:07:39 [employer]ICONDUCTOR PROCESSOR Robbie Busby MD [facility] CPT-55842 Level 4 Est. Patient 15:23:44 [employer]ICONDUCTOR PROCESSOR Desmond Diaz DO [facility] CPT-37452 Level 3 Est. Patient 15:40:49 CDT Robbie Busby MD [facility] CPT-98845 Level 4 Est. Patient 15:18:19 CDT Robbie Busby MD [facility] CPT-78844 Level 3 Est. Patient 09:00:37 CDT Rober Rodríguez APRN [facility] CPT-33621 Level 3 Est. Patient 16:07:10 CDT Robbie Busby MD [facility] CPT-79554 Level 4 Est. Patient 11:56:16 CDT Erin Mai [facility] CPT-46146 Level 3 Est. Patient 17:48:02 CDT Robbie Busby MD [facility] CPT-58945 Level 4 Est. Patient 12:00:49 [employer]ICONDUCTOR PROCESSOR Rober Rodríguez [facility] CPT-01830 Level 3 Est. Patient 09:16:37 CDT Robbie Busby MD [facility] CPT-84460 Level 3 Est. Patient 19:38:43 CDT Robbie Busby MD [facility] CPT-17634 Level 3 Est. Patient 11:53:38 CDT Robbie Busby MD [facility] CPT-17914 Level 4 Est. Patient 12:52:22 CDT Rober Rodríguez [facility] CPT-34153 Level 4 Est. Patient 22:55:17 CDT Robbie Busby MD [facility] CPT-73641 Level 3 Est. Patient 12:38:24 CDT Desmond Diaz DO [facility] CPT-65050 Level 4 Est. Patient 11:25:03 SEMICONDUCTOR PROCESSOR Robbie Busby MD [facility] CPT-20258 Level 4 Est. Patient 14:50:10 CDT Robbie Busby MD [facility] CPT-10335 Level 4 Est. Patient 23:30:43 CDT Robbie Busby MD [facility] CPT-03662 Level 4 Est. Patient 10:30:43 CDT Robbie Busby MD [facility] CPT-77761 Level 3 Est. Patient 17:08:12 CDT Alex ALVAREZ [facility] CPT-28056 Level 4 Est. Patient 17:51:38 CDT Robbie Busby MD [facility] CPT-81570 Level 4 Est. Patient 14:00:21 CDT Robbie Busby MD [facility] CPT-78824 Level 4 Est. Patient 12:46:48 CDT Robbie Busby MD [facility] CPT-64868 Level 4 Est. Patient 13:34:33 CDT Robbie Busby MD [facility] CPT-39902 Level 4 Est. Patient 16:58:28 CDT Robbie Busby MD [facility] CPT-82032 Level 3 Est. Patient 19:36:53 CDT Alex ALVAREZ [facility] CPT-79863 Level 3 Est. Patient 12:58:15 CDT Robbie Busby MD [facility] Procedures Code Procedure Name Date Entry Date Standard Description CPT-J1071 Depo Testosterone 200mg 16:10:29 [facility] CPT-70082 Abx/Therapy Injection 16:10:29 [facility] CPT-J1071 Depo Testosterone 200mg 16:13:47 [facility] CPT-25924 Abx/Therapy Injection 16:13:46 [facility] CPT-J1071 Depo Testosterone 200mg 15:33:58 [employer] CPT-35535 Abx/Therapy Injection 15:33:58 [facility] CPT-J1071 Depo Testosterone 200mg 09:38:36 [employer] CPT-53774 Abx/Therapy Injection 09:38:36 [employer] CPT-J1071 Depo Testosterone 200mg 10:22:56 [employer] CPT-83247 Abx/Therapy Injection 10:22:56 [employer] CPT-J1071 Depo Testosterone 200mg 15:40:23 CDT CPT-42862 Abx/Therapy Injection 15:40:23 CDT CPT-J1071 Depo Testosterone 200mg 14:20:43 CDT CPT-34091 Abx/Therapy Injection 14:20:43 CDT CPT-J1071 Depo Testosterone 200mg 14:17:22 CDT CPT-52039 Abx/Therapy Injection 14:17:22 CDT CPT-J1071 Depo Testosterone 200mg 09:03:53 CDT CPT-23000 Abx/Therapy Injection 09:03:53 CDT CPT-G0439 [facility] Annual Wellness Exam 16:47:44 CDT CPT-J1071 Depo Testosterone 200mg 09:06:28 CDT CPT-33010 Abx/Therapy Injection 09:06:28 CDT CPT-J1071 Depo Testosterone 200mg 08:30:01 CDT CPT-11670 Abx/Therapy Injection 08:30:01 CDT CPT-J1071 Depo Testosterone 200mg 08:24:00 CDT CPT-75312 Abx/Therapy Injection 08:24:00 CDT CPT-12049 Venipuncture Draw Fee 14:39:06 CDT CPT-94701 Ribs unilateral 2V - XRAY USE ONLY 12:10:11 CDT CPT-74641 First Vx - Ix admin for Medicare patients 16:32:53 CDT CPT-60244 Boostrix Intramuscular Suspension 5-2.5-18.5 16:32:53 CDT CPT-36634 TB Skin Test 11:42:28 CDT CPT-87647 Tdap 7yrs or > 11:42:28 CDT CPT-J0696 Rocephin 1000 mg (Ceftriaxone) 17:43:43 [employer] CPT-J1040 Depo Medrol 80 mg (Methyl Prednisolone Acetate) 17:43: 43 [employer]ESS[employer] CPT-J1100 Decadron 8mg (Dexamethasone) 17:43:42 [employer]IC[employer] PROCESS[employer] CPT-40409 Abx/Therapy Injection 17:43:42 [employer]ICOND[employer]CTOR PROCESS[employer] CPT-89123 Abx/Therapy Injection 17:43:42 [employer]ICOND[employer]CTOR PROCESS[employer] CPT-J1040 Depo Medrol 80 mg (Methyl Prednisolone Acetate) 09:43: 34 [employer]IC[employer]CTOR PROCESS[employer] CPT-J1100 Decadron 8mg (Dexamethasone) 09:43:34 [employer]ICOND[employer]CTOR PROCESSOR CPT-J0696 Rocephin 1gm Inj Solr 09:43:34 [employer]IC[employer]CTOR PROCESS[employer] CPT-30478 Wound Culture - LAB USE ONLY 14:00:21 CDT CPT-I/D I/D Abscess 09:16:37 CDT CPT-79620 Venipuncture Draw Fee 15:20:23 CDT CPT-28495 Microalbumin - LAB USE ONLY 16:02:19 CDT CPT-06021 CBC - LAB USE ONLY 16:02:19 CDT CPT-63477 Venipuncture Draw Fee 16:02:19 CDT CPT-G0438 Initial Annual Wellness Exam 08:10:28 CDT CPT-63861 Venipuncture Draw Fee 13:07:17 CDT CPT-G0008 Administration of Influenza Virus Vaccine 16:09:59 CDT CPT-77973 Fluzone Quadrivalent Intramuscular Suspension 0.5 ML 16: 09:59 CDT CPT-76661 Spec Collection and Handling Fee 15:05:50 CDT
--- OUTSIDE RECORDS SUMMARY | 2018-04-18 10:46 | XMS REPORT | Clinical Summary ---
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 Desmond Diaz DO Other malignant secondary hypertension Tachycardia 785.0 Active Rober Rodríguez [employer] Tachycardia, unspecified Insect bite, infected 919.5 Resolved Desmond Diaz DO Insect bite, nonvenomous, of other, multiple, and unspecified sites, infected Abscess, skin 682.9 Resolved Desmond Diaz DO Cellulitis and abscess of unspecified sites URI 465.9 Resolved Desmond Diaz DO Acute upper respiratory infections of unspecified site Hypertension 401.9 Active Rober Rodríguez [employer] Unspecified essential hypertension Sinusitis - acute 461.9 [...] Hypogonadism, low testosterone 257.2 Active Erin Mai [employer] Other testicular hypofunction Low back pain, chronic [...] 37.0-37.9, adult Sinusitis ICD-461.9 Inactive Emily Atwood [employer] 2017 Low back pain, acute ICD-724.2 Inactive Emily Atwood [employer] Low back pain, chronic ICD-724.2 Inactive Emily Atwood [employer] Bronchitis, acute ICD-466.0 Inactive Emily Atwood [employer] Onychomycosis, toenails ICD-110.1 Inactive Emily Atwood [employer] Dizziness ICD-780.4 Inactive Emily Atwood [employer] 2017 Folliculitis ICD-704.8 Inactive Emily Atwood [employer] Pharyngitis-Acute ICD-462 Inactive Meily Atwood [employer] Fatigue ICD-780.79 Inactive Emily Atwood [employer] 09/20 Hypertension, secondary, malignant ICD-405.09 Inactive Emily Atwood [employer] Insect bite, infected ICD-919.5 Inactive Emily Atwood [employer] Abscess, skin ICD-682.9 Inactive Emily Atwood [employer] URI ICD-465.9 Inactive Emily Atwood [employer] Sinusitis - acute ICD-461.9 Inactive Emily Atwood [employer] Acute confusion ICD-293.0 Inactive Emily Atwood [employer] Headache ICD-784.0 Inactive Emily Solisnae CISSE 09/20 [...] HOUR 1 po q day ISOSORBIDE MONONITRATE 36455000508 Active Emma Hernandez Active METOPROLOL SUCCINATE ER 200 MG ORAL TABLET EXTENDED RELEASE 24 HOUR take 1 tab po qday for high blood pressure and rapid pulse METOPROLOL SUCCINATE 86069079237 Active Robbie Busby MD Active [id number] 0.3 MG/24HR TRANSDERMAL PATCH WEEKLY apply 2 patches q week for HTN CLONIDINE HCL 25609361951 No Longer Active Robbie Busby MD Active IMDUR 60 MG ORAL TABLET EXTENDED RELEASE 24 HOUR take 1 tab po qday for blood pressure ISOSORBIDE MONONITRATE 81910981352 No Longer Active Robbie Busby MD Active TEMAZEPAM 15 MG ORAL CAPSULE 1 TAB PO Q HS TEMAZEPAM 21681038303 No Longer Active Robbie Busby MD Active TOPIRAMATE 50 MG ORAL TABLET 1 po BID for migraines TOPIRAMATE 39735974915 No Longer Active Robbie Busby MD Active CYCLOBENZAPRINE HCL 10 MG ORAL TABLET 1 tablet by mouth three times daily as needed for muscle spasm/pain CYCLOBENZAPRINE HCL 06714412807 No Longer Active Robbie Busby MD Active TOPROL XL 200 MG ORAL TABLET EXTENDED RELEASE 24 HOUR Take one by mouth daily METOPROLOL SUCCINATE 63801730976 No Longer Active Robbie Busby MD Active METFORMIN HCL 500 MG ORAL TABLET 1 tablet by mouth daily for diabetes type 2 METFORMIN HCL 80918151730 Active Robbie Busby MD Active SINGULAIR 10 MG ORAL TABLET 1 po qday for allergies. MONTELUKAST SODIUM 48677464285 No Longer Active Robbie Busby MD Active PREDNISONE 20 MG ORAL TABLET two tabs by mouth today, then one tab by mouth days two and three PREDNISONE 18320785548 No Longer Active Robbie Busby MD Active AZITHROMYCIN 250 MG ORAL TABLET 2 po qd x 1 day, then 1 po qd x 4 days 09/20 AZITHROMYCIN 29753183068 No Longer Active Desmond Diaz DO Active TOPIRAMATE 50 MG ORAL TABLET take 1 tab po BID for migraines. TOPIRAMATE 10894219777 No Longer Active Desmond Diaz DO Active CYCLOBENZAPRINE HCL 10 MG ORAL TABLET 1 po TID PRN muscle spasm/pain for 10 days CYCLOBENZAPRINE HCL 28302321667 No Longer Active Desmond Diaz DO Active GUAIFENESIN ER 600 MG ORAL TABLET EXTENDED RELEASE 12 HOUR 1 tab po q am 2016 GUAIFENESIN 25534056531 No Longer Active Robbie Busby MD Active DIVALPROEX SODIUM ER 500 MG ORAL TABLET EXTENDED RELEASE 24 HOUR Once daily DIVALPROEX SODIUM 68978453843 Active Robbie Busby MD Active DEPO-TESTOSTERONE 200 MG/ML INTRAMUSCULAR SOLUTION 1 IM Injections every 2 weeks for low testosterone TESTOSTERONE CYPIONATE 83785748374 Active Zulema Blank LPN Active FLUTICASONE PROPIONATE 50 MCG/ACT NASAL SUSPENSION 2 sprays per nostril bid for 1 week, then 1 spray bid FLUTICASONE PROPIONATE 62576350920 Active Rober Rodríguez APRN Active HYDRALAZINE HCL 25 MG ORAL TABLET Take 1 tab BID. HYDRALAZINE HCL 43978103342 Active Rober Rodríguez APRN Active VITAMIN D3 46682 UNIT ORAL TABLET 2 po weekly CHOLECALCIFEROL 43383688836 Active Robbie Busby MD Active OXYCODONE HCL ER 10 MG ORAL TABLET ER 12 HOUR ABUSE-DETERRENT 1 tab po 3 times qd. OXYCODONE HCL 17314614104 Active Robbie Busby MD Active NITROSTAT 0.4 MG SUBLINGUAL TABLET SUBLINGUAL PRN NITROGLYCERIN 65774052836 No Longer Active Robbie Busby MD Active LORATADINE 10 MG ORAL TABLET 1 tablet by mouth daily for congestion and allergies. LORATADINE 19893006794 No Longer Active Robbie Busby MD Active FLONASE 50 MCG/ACT NASAL SUSPENSION 1 spray each nostril twice daily for allergies and runny nose FLUTICASONE PROPIONATE 67553182452 No Longer Active Robbie Busby MD Active FIORICET 50-300-40 MG ORAL CAPSULE take 1 tab po qday prn migraines. [id number] 94004724541 No Longer Active Robbie Busby MD Active VITAMIN D3 50676 UNIT ORAL CAPSULE 2 CAPS PO WEEKLY CHOLECALCIFEROL 61254931471 No Longer Active Robbie Busby MD Active CYCLOBENZAPRINE HCL 10 MG ORAL TABLET 1 tablet by mouth three times daily as needed for muscle spasm/pain for 10 days CYCLOBENZAPRINE HCL 58115038158 No Longer Active Robbie Busby MD Active PREDNISONE 20 MG ORAL TABLET take 3 tabs daily for 3 days, 2 tabs daily for 3 days, 1 tab daily for 3 days, 1/2 tab daily for 4 days PREDNISONE 39117911339 No Longer Active Erin Mai APRN Active CLONIDINE HCL 0.2 MG ORAL TABLET 1 TAB BY MOUTH EVERY 8 HOURS CLONIDINE HCL 50651393221 No Longer Active Erin Mai APRN Active MECLIZINE HCL 25 MG ORAL TABLET one 4 times a day as needed for dizziness MECLIZINE HCL 25056078211 No Longer Active Erin Mai APRN Active SPIRONOLACTONE 25 MG ORAL TABLET 4 tablets by mouth daily SPIRONOLACTONE 10804217232 No Longer Active Erin Riverall [employer] Active LEVAQUIN 500 MG ORAL TABLET 1 tablet by mouth daily for 7 days LEVOFLOXACIN 17583241715 No Longer Active Erin Mai [employer] Active BACTRIM DS 800-160 MG ORAL TABLET 1 tab by mouth twice daily 2015 TRIMETHOPRIM-SULFAMETHOXAZOLE 20951874303 No Longer Active Robbie Busby MD Active HYDRALAZINE HCL 50 MG ORAL TABLET TWO BY MOUTH THREE TIMES DAILY HYDRALAZINE HCL 79235442096 No Longer Active Andrellina Frazell [employer] Active HYDROCODONE-ACETAMINOPHEN 5-325 MG ORAL TABLET 1 tab by mouth BID prn back pain HYDROCODONE-ACETAMINOPHEN 08424027858 No Longer Active 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 [employer] Active HYDROCHLOROTHIAZIDE TABLET Take one by mouth daily HYDROCHLOROTHIAZIDE TABS 75018566689 No Longer Active 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 [employer] Active LAMISIL 125 MG ORAL PACKET 1 TAB PO DAILY TERBINAFINE HCL 20222479954 No Longer Active 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 [employer] Active TRILEPTAL 150 MG ORAL TABLET 1 TAB PO Q HS OXCARBAZEPINE 65556246905 No Longer Active 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 [employer] Active BETADINE 10 % EXTERNAL SOLUTION 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 07/29 POVIDONE-IODINE 62688733333 No Longer Active 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 [employer] Active NYSTATIN 669224 UNIT/ML MOUTH/THROAT SUSPENSION 5mL po QID x 10 days NYSTATIN 32224243142 No Longer Active Erin Mai [employer] Active PREDNISONE 20 MG ORAL TABLET 1 tablet twice daily for 2 days, then 1 tablet once daily for 2 days PREDNISONE 32112813720 No Longer Active Robbie Busby MD Active CEFDINIR 300 MG ORAL CAPSULE Take 1 cap po bid x 10 days CEFDINIR 41210085006 No Longer Active Robbie Busby MD Active AMLODIPINE BESYLATE 10 MG ORAL TABLET 1 tablet by mouth daily AMLODIPINE BESYLATE 47913729735 Active Robbie Busby MD Active CARVEDILOL 25 MG ORAL TABLET 1 & 1/2 TAB po BID CARVEDILOL 14441614769 Active Robbie Busby MD Active NEXIUM 40 MG ORAL CAPSULE DELAYED RELEASE 1 cap by mouth daily ESOMEPRAZOLE MAGNESIUM 75429888511 Active Robbie Busby MD Active PROTONIX 40 MG INTRAVENOUS SOLUTION RECONSTITUTED 1 po qday for acid reflux PANTOPRAZOLE SODIUM 47727989254 No Longer Active Galileonila Negro Active KEFLEX 500 MG ORAL CAPSULE 1 po TID x 10 days CEPHALEXIN 43440551524 No Longer Active Robbie Busby MD Active ALPRAZOLAM 2 MG ORAL TABLET 1 TAB PO BID ALPRAZOLAM 55669120688 Active Robbie Busby MD Active FENOFIBRATE 145 MG ORAL TABLET Take one by mouth daily FENOFIBRATE 08200418015 No Longer Active Robbie Busby MD Active SPIRONOLACTONE 50 MG ORAL TABLET 1 tablet by mouth twice a day SPIRONOLACTONE 13355117661 No Longer Active Robbie Busby MD Active HYDRALAZINE HCL 25 MG ORAL TABLET 1 tablet by mouth tid for hypertension 2013 HYDRALAZINE HCL 35735133442 No Longer Active Robbie Busby MD Active VIIBRYD 40 MG ORAL TABLET take 1 tab po qday for depression. 2014 VILAZODONE HCL 77954053066 No Longer Active Robbie Busby MD Active TERBINAFINE HCL 250 MG ORAL TABLET 1 tab po qday for foot infection TERBINAFINE HCL 01253602832 No Longer Active Robbie Busby MD Active GABAPENTIN 300 MG ORAL CAPSULE 1 po q hs for nerve pain GABAPENTIN 03567694206 Active Robbie Busby MD Active CHERATUSSIN AC 100-10 MG/5ML ORAL SOLUTION 7.5 mL PO q 4-6 hrs PRN cough 2014 GUAIFENESIN-CODEINE 97419478501 No Longer Active Robbie Busby MD Active AZITHROMYCIN 250 MG ORAL TABLET 2 tablets PO today---then, 1 tablet PO daily x 4 more days (and 1 optional refill) AZITHROMYCIN 41706822014 No Longer Active Robbie Busby MD Active NORVASC 10 MG ORAL TABLET 1 tablet by mouth daily AMLODIPINE BESYLATE 69013801779 No Longer Active Alex ALVAREZ Active ISOSORBIDE DINITRATE 30 MG ORAL TABLET Take one by mouth daily ISOSORBIDE DINITRATE 12102748862 No Longer Active Robbie Busby MD Active VIIBRYD 40 MG ORAL TABLET 1 TA B PO DAILY VILAZODONE HCL 20041273498 Active Robbie Busby MD Active ZITHROMAX 250 MG ORAL TABLET 2 po today, then 1 po q days 2-5 AZITHROMYCIN 22943702479 No Longer Active Robbie Busby MD Active DOXAZOSIN MESYLATE 4 MG ORAL TABLET Take one by mouth daily DOXAZOSIN MESYLATE 92257208273 Active Robbie Busby MD Active VENLAFAXINE HCL ER 150 MG ORAL TABLET EXTENDED RELEASE 24 HOUR Take one by mouth daily VENLAFAXINE HCL 63659628717 Active Robbie Busby MD Active LIPITOR 40 MG ORAL TABLET Take one by mouth daily ATORVASTATIN CALCIUM 59690408561 Active Robbie Busby MD Active ISOSORBIDE DINITRATE 30 MG ORAL TABLET Take one by mouth daily ISOSORBIDE DINITRATE 30 MG ORAL TABLET 178627 ISOSORBIDE DINITRATE Inactive NORVASC 10 MG ORAL TABLET 1 tablet by mouth daily NORVASC 10 MG ORAL TABLET 309407 AMLODIPINE BESYLATE Inactive AZITHROMYCIN 250 MG ORAL TABLET 2 tablets PO today---then, 1 tablet PO daily x 4 more days (and 1 optional refill) AZITHROMYCIN 250 MG ORAL TABLET 647748 AZITHROMYCIN Inactive CHERATUSSIN AC 100-10 MG/5ML ORAL SOLUTION 7.5 mL PO q 4-6 hrs PRN cough 2014 CHERATUSSIN AC 100-10 MG/5ML ORAL SOLUTION 617329 GUAIFENESIN-CODEINE Inactive VIIBRYD 40 MG ORAL TABLET take 1 tab po qday for depression. 2014 VIIBRYD 40 MG ORAL TABLET VILAZODONE HCL Inactive HYDRALAZINE HCL 25 MG ORAL TABLET 1 tablet by mouth tid for hypertension 2013 HYDRALAZINE HCL 25 MG ORAL TABLET 241503 HYDRALAZINE HCL Inactive SPIRONOLACTONE 50 MG ORAL TABLET 1 tablet by mouth twice a day SPIRONOLACTONE 50 MG ORAL TABLET 521934 SPIRONOLACTONE Inactive FENOFIBRATE 145 MG ORAL TABLET Take one by mouth daily FENOFIBRATE 145 MG ORAL TABLET 619166 FENOFIBRATE Inactive PROTONIX 40 MG INTRAVENOUS SOLUTION RECONSTITUTED 1 po qday for acid reflux PROTONIX 40 MG INTRAVENOUS SOLUTION RECONSTITUTED 038876 PANTOPRAZOLE SODIUM Inactive CEFDINIR 300 MG ORAL CAPSULE Take 1 cap po bid x 10 days CEFDINIR 300 MG ORAL CAPSULE 998126 CEFDINIR Inactive PREDNISONE 20 MG ORAL TABLET 1 tablet twice daily for 2 days, then 1 tablet once daily for 2 days PREDNISONE 20 MG ORAL TABLET 996398 PREDNISONE Inactive NYSTATIN 286885 UNIT/ML MOUTH/THROAT SUSPENSION 5mL po QID x 10 days NYSTATIN 563993 UNIT/ML MOUTH/THROAT SUSPENSION 304928 NYSTATIN Inactive BETADINE 10 % EXTERNAL SOLUTION 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 07/29 BETADINE 10 % EXTERNAL SOLUTION 9843425 POVIDONE-IODINE Inactive TRILEPTAL 150 MG ORAL TABLET 1 TAB PO Q HS TRILEPTAL 150 MG ORAL TABLET 779987 OXCARBAZEPINE Inactive LAMISIL 125 MG ORAL PACKET 1 TAB PO DAILY LAMISIL 125 MG ORAL PACKET TERBINAFINE HCL Inactive HYDROCHLOROTHIAZIDE TABLET Take one by mouth daily HYDROCHLOROTHIAZIDE TABLET HYDROCHLOROTHIAZIDE TABS Inactive HYDROCODONE-ACETAMINOPHEN 5-325 MG ORAL TABLET 1 tab by mouth BID prn back pain HYDROCODONE-ACETAMINOPHEN 5-325 MG ORAL TABLET 063046 HYDROCODONE-ACETAMINOPHEN Inactive HYDRALAZINE HCL 50 MG ORAL TABLET TWO BY MOUTH THREE TIMES DAILY HYDRALAZINE HCL 50 MG ORAL TABLET 672067 HYDRALAZINE HCL Inactive LEVAQUIN 500 MG ORAL TABLET 1 tablet by mouth daily for 7 days LEVAQUIN 500 MG ORAL TABLET 372634 LEVOFLOXACIN Inactive SPIRONOLACTONE 25 MG ORAL TABLET 4 tablets by mouth daily SPIRONOLACTONE 25 MG ORAL TABLET 091648 SPIRONOLACTONE Inactive MECLIZINE HCL 25 MG ORAL TABLET one 4 times a day as needed for dizziness MECLIZINE HCL 25 MG ORAL TABLET 041824 MECLIZINE HCL Inactive CLONIDINE HCL 0.2 MG ORAL TABLET 1 TAB BY MOUTH EVERY 8 HOURS CLONIDINE HCL 0.2 MG ORAL TABLET 581464 CLONIDINE HCL Inactive CYCLOBENZAPRINE HCL 10 MG ORAL TABLET 1 tablet by mouth three times daily as needed for muscle spasm/pain for 10 days CYCLOBENZAPRINE HCL 10 MG ORAL TABLET 312924 CYCLOBENZAPRINE HCL Inactive VITAMIN D3 23374 UNIT ORAL CAPSULE 2 CAPS PO WEEKLY VITAMIN D3 85381 UNIT ORAL CAPSULE CHOLECALCIFEROL Inactive FIORICET 50-300-40 MG ORAL CAPSULE take 1 tab po qday prn migraines. FIORICET 50-300-40 MG ORAL CAPSULE 966595 BUTALBITAL-APAP- CAFFEINE Inactive FLONASE 50 MCG/ACT NASAL SUSPENSION 1 spray each nostril twice daily for allergies and runny nose FLONASE 50 MCG/ACT NASAL SUSPENSION 0445202 FLUTICASONE PROPIONATE Inactive LORATADINE 10 MG ORAL TABLET 1 tablet by mouth daily for congestion and allergies. LORATADINE 10 MG ORAL TABLET 310529 LORATADINE Inactive NITROSTAT 0.4 MG SUBLINGUAL TABLET SUBLINGUAL PRN NITROSTAT 0.4 MG SUBLINGUAL TABLET SUBLINGUAL 208764 NITROGLYCERIN Inactive GUAIFENESIN ER 600 MG ORAL TABLET EXTENDED RELEASE 12 HOUR 1 tab po q am 2016 GUAIFENESIN ER 600 MG ORAL TABLET EXTENDED RELEASE 12 HOUR GUAIFENESIN Inactive CYCLOBENZAPRINE HCL 10 MG ORAL TABLET 1 po TID PRN muscle spasm/pain for 10 days CYCLOBENZAPRINE HCL 10 MG ORAL TABLET 554488 CYCLOBENZAPRINE HCL Inactive TOPIRAMATE 50 MG ORAL TABLET take 1 tab po BID for migraines. TOPIRAMATE 50 MG ORAL TABLET 160629 TOPIRAMATE Inactive PREDNISONE 20 MG ORAL TABLET two tabs by mouth today, then one tab by mouth days two and three PREDNISONE 20 MG ORAL TABLET 026964 PREDNISONE Inactive TOPROL XL 200 MG ORAL TABLET EXTENDED RELEASE 24 HOUR Take one by mouth daily TOPROL XL 200 MG ORAL TABLET EXTENDED RELEASE 24 HOUR METOPROLOL SUCCINATE Inactive CYCLOBENZAPRINE HCL 10 MG ORAL TABLET 1 tablet by mouth three times daily as needed for muscle spasm/pain CYCLOBENZAPRINE HCL 10 MG ORAL TABLET 518824 CYCLOBENZAPRINE HCL Inactive TOPIRAMATE 50 MG ORAL TABLET 1 po BID for migraines TOPIRAMATE 50 MG ORAL TABLET 637108 TOPIRAMATE Inactive TEMAZEPAM 15 MG ORAL CAPSULE 1 TAB PO Q HS TEMAZEPAM 15 MG ORAL CAPSULE 036706 TEMAZEPAM Inactive IMDUR 60 MG ORAL TABLET EXTENDED RELEASE 24 HOUR take 1 tab po qday for blood pressure IMDUR 60 MG ORAL TABLET EXTENDED RELEASE 24 HOUR ISOSORBIDE MONONITRATE Inactive [id number] 0.3 MG/24HR TRANSDERMAL PATCH WEEKLY apply 2 patches q week for HTN [id number] 0.3 MG/24HR TRANSDERMAL PATCH WEEKLY 450156 CLONIDINE HCL Inactive ZITHROMAX 250 MG ORAL TABLET 2 po today, then 1 po q days 2-5 ZITHROMAX 250 MG ORAL TABLET 688030 AZITHROMYCIN Inactive TERBINAFINE HCL 250 MG ORAL TABLET 1 tab po qday for foot infection TERBINAFINE HCL 250 MG ORAL TABLET 412729 TERBINAFINE HCL Inactive KEFLEX 500 MG ORAL CAPSULE 1 po TID x 10 days KEFLEX 500 MG ORAL CAPSULE 665862 CEPHALEXIN Inactive BACTRIM DS 800-160 MG ORAL TABLET 1 tab by mouth twice daily 2015 BACTRIM DS 800-160 MG ORAL TABLET 500917 TRIMETHOPRIM- SULFAMETHOXAZOLE Inactive PREDNISONE 20 MG ORAL TABLET take 3 tabs daily for 3 days, 2 tabs daily for 3 days, 1 tab daily for 3 days, 1/2 tab daily for 4 days PREDNISONE 20 MG ORAL TABLET 534924 PREDNISONE Inactive AZITHROMYCIN 250 MG ORAL TABLET 2 po qd x 1 day, then 1 po qd x 4 days 09/20 AZITHROMYCIN 250 MG ORAL TABLET 396372 AZITHROMYCIN Inactive SINGULAIR 10 MG ORAL TABLET 1 po qday for allergies. SINGULAIR 10 MG ORAL TABLET 850592 MONTELUKAST SODIUM Inactive Advance Directives Directive Description [...] AUTO - Chemistry sodium, serum 142 mmol/L 324-216 2101/07/17 carbon dioxide, venous blood 28.2 mmol/L 21.0-32.0 [...] % 11.0-15.0 platelet count 185 THOUSAND/UL 10*3/mm3 643-462 3943/04/14 mean platelet volume 10.9 fL 7.5-12.5 Lab Report: Comp. Metabolic Panel - Chemistry sodium, serum 141 mmol/L 902-786 2064/02/13 carbon dioxide, venous blood 23.9 mmol/L 21.0-32.0 [...] 6.9 % 4.3-6.0 sodium, serum 139 mmol/L 103-658 0878/01/04 potassium, serum 3.9 mmol/L 3.5-5.2 chloride, serum 103 mmol/L 98-107 carbon dioxide, venous blood 26.9 mmol/L 21.0-32.0 blood glucose 106 mg/dL 65-110 calcium, serum 9.0 mg/dL 8.5-10.1 urea nitrogen, blood 20 mg/dL 7-18 creatinine, serum 1.46 mg/dL 0.60-1.30 Lab Report: LIPID PANEL, TSH/899, T4, FREE/866 - Chemistry cholesterol, serum 220 mg/dL 807-575 8506/04/14 HDL cholesterol, serum 30 mg/dL > OR=40 [...] 1.80 ng/mL 0.00-4.00 Lab Report: VITAMIN D, 25-HYDROXY/65539 - Chemistry vitamin D 25-hydroxy, serum 25 ng/mL 30-100 Office Visit: Confusion, dizziness after fall - Basic LDL target level 130 mg/dL Office Visit: Confusion, dizziness after fall - Chemistry HDL cholesterol, serum, target level 40 mg/dL triglyceride, target level 150 mg/dL cholesterol, target level 200 mg/dL Encounters Code Encounter Date Provider Facility CPT-77796 Level 4 Est. Patient 09:50:01 [employer] Robbie Busby MD [facility] CPT-74363 Level 4 Est. Patient 09:42:08 [employer] Robbie Busby MD [facility] CPT-49562 Level 4 Est. Patient 13:07:39 [employer] Robbie Busby MD [facility] CPT-58770 Level 4 Est. Patient 15:23:44 [employer] Desmond Diaz DO [facility] CPT-11240 Level 3 Est. Patient 15:40:49 CDT Robbie Busby MD [facility] CPT-13199 Level 4 Est. Patient 15:18:19 CDT Robbie Busby MD [facility] CPT-78007 Level 3 Est. Patient 09:00:37 CDT Rober Rodríguez APRN [facility] CPT-97061 Level 3 Est. Patient 16:07:10 CDT Robbie Busby MD [facility] CPT-71395 Level 4 Est. Patient 11:56:16 CDT Erin Miguelzane [facility] CPT-57080 Level 3 Est. Patient 17:48:02 CDT Robbie Busby MD [facility] CPT-42306 Level 4 Est. Patient 12:00:49 [employer] Rober Rodríguez [facility] CPT-98279 Level 3 Est. Patient 09:16:37 CDT Robbie Busby MD [facility] CPT-90860 Level 3 Est. Patient 19:38:43 CDT Robbie Busby MD [facility] CPT-67528 Level 3 Est. Patient 11:53:38 CDT Robbie Busby MD [facility] CPT-48229 Level 4 Est. Patient 12:52:22 CDT Rober Rodríguez [facility] CPT-72409 Level 4 Est. Patient 22:55:17 CDT Robbie Busby MD [facility] CPT-66735 Level 3 Est. Patient 12:38:24 CDT Desmond Diaz DO [facility] CPT-07235 Level 4 Est. Patient 11:25:03 [employer] Robbie Busby MD [facility] CPT-54253 Level 4 Est. Patient 14:50:10 CDT Robbie Busby MD [facility] CPT-15979 Level 4 Est. Patient 23:30:43 CDT Robbie Busby MD [facility] CPT-25554 Level 4 Est. Patient 10:30:43 CDT Robbie Busby MD [facility] CPT-69403 Level 3 Est. Patient 17:08:12 CDT Alex ALVAREZ [facility] CPT-16502 Level 4 Est. Patient 17:51:38 CDT Robbie Busby MD [facility] CPT-76215 Level 4 Est. Patient 14:00:21 CDT Robbie Busby MD [facility] CPT-97737 Level 4 Est. Patient 12:46:48 CDT Robbie Busby MD [facility] CPT-36511 Level 4 Est. Patient 13:34:33 CDT Robbie Busby MD [facility] CPT-33781 Level 4 Est. Patient 16:58:28 CDT Robbie Busby MD [facility] CPT-90022 Level 3 Est. Patient 19:36:53 CDT Alex ALVAREZ [facility] CPT-10501 Level 3 Est. Patient 12:58:15 CDT Robbie Busby MD [facility] Procedures Code Procedure Name Date Entry Date Standard Description CPT-J1071 Depo Testosterone 200mg 16:10:29 [facility] CPT-01223 Abx/Therapy Injection 16:10:29 [facility] CPT-J1071 Depo Testosterone 200mg 16:13:47 [facility] CPT-05701 Abx/Therapy Injection 16:13:46 [facility] CPT-J1071 Depo Testosterone 200mg 15:33:58 [facility] CPT-33964 Abx/Therapy Injection 15:33:58 [facility] CPT-J1071 Depo Testosterone 200mg 09:38:36 [facility] CPT-65421 Abx/Therapy Injection 09:38:36 [facility] CPT-J1071 Depo Testosterone 200mg 10:22:56 [facility] CPT-82284 Abx/Therapy Injection 10:22:56 [employer] CPT-J1071 Depo Testosterone 200mg 15:40:23 CDT CPT-20405 Abx/Therapy Injection 15:40:23 CDT CPT-J1071 Depo Testosterone 200mg 14:20:43 CDT CPT-72673 Abx/Therapy Injection 14:20:43 CDT CPT-J1071 Depo Testosterone 200mg 14:17:22 CDT CPT-53478 Abx/Therapy Injection 14:17:22 CDT CPT-J1071 Depo Testosterone 200mg 09:03:53 CDT CPT-87716 Abx/Therapy Injection 09:03:53 CDT CPT-G0439 [facility] Annual Wellness Exam 16:47:44 CDT CPT-J1071 Depo Testosterone 200mg 09:06:28 CDT CPT-74928 Abx/Therapy Injection 09:06:28 CDT CPT-J1071 Depo Testosterone 200mg 08:30:01 CDT CPT-30000 Abx/Therapy Injection 08:30:01 CDT CPT-J1071 Depo Testosterone 200mg 08:24:00 CDT CPT-13138 Abx/Therapy Injection 08:24:00 CDT CPT-91231 Venipuncture Draw Fee 14:39:06 CDT CPT-82013 Ribs unilateral 2V - XRAY USE ONLY 12:10:11 CDT CPT-31616 First Vx - Ix admin for Medicare patients 16:32:53 CDT CPT-17863 Boostrix Intramuscular Suspension 5-2.5-18.5 16:32:53 CDT CPT-50570 TB Skin Test 11:42:28 CDT CPT-98924 Tdap 7yrs or > 11:42:28 CDT CPT-J0696 Rocephin 1000 mg (Ceftriaxone) 17:43:43 [employer] CPT-J1040 Depo Medrol 80 mg (Methyl Prednisolone Acetate) 17:43: 43 [employer] CPT-J1100 Decadron 8mg (Dexamethasone) 17:43:42 [employer] CPT-03544 Abx/Therapy Injection 17:43:42 [employer] CPT-32180 Abx/Therapy Injection 17:43:42 [employer] CPT-J1040 Depo Medrol 80 mg (Methyl Prednisolone Acetate) 09:43: 34 [employer] CPT-J1100 Decadron 8mg (Dexamethasone) 09:43:34 [employer] CPT-J0696 Rocephin 1gm Inj Solr 09:43:34 [employer] CPT-88031 Wound Culture - LAB USE ONLY 14:00:21 CDT CPT-I/D I/D Abscess 09:16:37 CDT CPT-77434 Venipuncture Draw Fee 15:20:23 CDT CPT-28348 Microalbumin - LAB USE ONLY 16:02:19 CDT CPT-91406 CBC - LAB USE ONLY 16:02:19 CDT CPT-44723 Venipuncture Draw Fee 16:02:19 CDT CPT-G0438 Initial Annual Wellness Exam 08:10:28 CDT CPT-95155 Venipuncture Draw Fee 13:07:17 CDT CPT-G0008 Administration of Influenza Virus Vaccine 16:09:59 CDT CPT-26820 Fluzone Quadrivalent Intramuscular Suspension 0.5 ML 16: 09:59 CDT CPT-62191 Spec Collection and Handling Fee 15:05:50 CDT
--- OUTSIDE RECORDS SUMMARY | 2018-04-18 10:47 | XMS REPORT | Clinical Summary ---
Author Author Admin, [facility] Organization [facility] Address Unknown Phone Unavailable Allergies, [...] by mouth daily for 7 days LEVOFLOXACIN 18156002269 Active Erin Garsia APRN Active BACTRIM DS 800-160 MG TAB 1 tab by mouth twice daily TRIMETHOPRIM-SULFAMETHOXAZOLE 31136649823 No Longer Active Robbie Busby MD Active SPIRONOLACTONE 25 MG TAB 4 tablets by mouth daily SPIRONOLACTONE 09229860593 Active Robbie Busby MD Active HYDRALAZINE HCL 50 MG ORAL TABS TWO BY MOUTH THREE TIMES DAILY HYDRALAZINE HCL 91567607103 No Longer Active Andrellina Zulemal RESEARCH SUBJECT Active HYDROCODONE-ACETAMINOPHEN 5-325 MG TABS 1 tab by mouth BID prn back pain 2013 HYDROCODONE-ACETAMINOPHEN 70662443887 No Longer Active 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 RESEARCH SUBJECT Active HYDROCHLOROTHIAZIDE TABS Take one by mouth daily HYDROCHLOROTHIAZIDE TABS 18877355776 No Longer Active 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 RESEARCH SUBJECT Active LAMISIL 125 MG ORAL PACK 1 TAB PO DAILY TERBINAFINE HCL 69462116407 No Longer Active 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 RESEARCH SUBJECT Active TRILEPTAL 150 MG ORAL TABS 1 TAB PO Q HS OXCARBAZEPINE 92185627783 No Longer Active 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 RESEARCH SUBJECT Active BETADINE 10 % EXT SOLN 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 POVIDONE-IODINE 99830714623 No Longer Active 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 RESEARCH SUBJECT Active NYSTATIN 521089 UNIT/ML M/T SUSP 5mL po QID x 10 days NYSTATIN 90880126220 No Longer Active Erin Garsia APRN Active PREDNISONE 20 MG TAB 1 tablet twice daily for 2 days, then 1 tablet once daily for 2 days PREDNISONE 92594054580 No Longer Active Robbie Busby MD Active CEFDINIR 300 MG ORAL CAPS Take 1 cap po bid x 10 days CEFDINIR 60642191716 No Longer Active Robbie Busby MD Active AMLODIPINE BESYLATE 10 MG TABS 1 tablet by mouth daily AMLODIPINE BESYLATE 04547833216 Active Robbie Busby MD Active CARVEDILOL 25 MG TABS 1 & 1/2 TAB po BID CARVEDILOL 17524065881 Active Erin Garsia APRN Active VITAMIN D3 03525 UNIT CAPS 2 CAPS PO WEEKLY CHOLECALCIFEROL 68805494858 Active Erin Garsia APRN Active NEXIUM 40 MG CPDR 1 cap by mouth daily ESOMEPRAZOLE MAGNESIUM 99700991849 Active Robbie Busby MD Active PROTONIX 40 MG SOLR 1 po qday for acid reflux PANTOPRAZOLE SODIUM 10156054318 No Longer Active Gali Raida Active KEFLEX 500 MG CAP 1 po TID x 10 days CEPHALEXIN 03181572291 No Longer Active Robbie Busby MD Active FIORICET 50-300-40 MG ORAL CAPS take 1 tab po qday prn migraines. [id number] 84684962796 Active Robbie Busby MD Active TOPIRAMATE 50 MG ORAL TABS take 1 tab po BID for migraines. TOPIRAMATE 56324263607 Active Robbie Busby MD Active MECLIZINE HCL 25 MG TAB one 4 times a day as needed for dizziness MECLIZINE HCL 14138287897 Active Robbie Busby MD Active TEMAZEPAM 15 MG ORAL CAPS 1 TAB PO Q HS TEMAZEPAM 64510673176 Active Robbie Busby MD Active ALPRAZOLAM 2 MG ORAL TABS 1 TAB PO BID ALPRAZOLAM 78894629696 Active Robbie Busby MD Active FENOFIBRATE 145 MG TABS Take one by mouth daily FENOFIBRATE 59997076106 No Longer Active Robbie Busby MD Active SPIRONOLACTONE 50 MG TABS 1 tablet by mouth twice a day SPIRONOLACTONE 87504178239 No Longer Active Robbie Busby MD Active HYDRALAZINE HCL 25 MG TABS 1 tablet by mouth tid for hypertension HYDRALAZINE HCL 94991387445 No Longer Active Robbie Busby MD Active VIIBRYD 40 MG TABS take 1 tab po qday for depression. VILAZODONE HCL 42234420248 No Longer Active Robbie Busby MD Active TERBINAFINE HCL 250 MG TABS 1 tab po qday for foot infection 2014 TERBINAFINE HCL 11335636888 No Longer Active Robbie Busby MD Active GABAPENTIN 300 MG CAPS 1 po q hs for nerve pain GABAPENTIN 37007183866 Active Robbie Busby MD Active FLONASE 50 MCG/ACT SUSP 1 spray each nostril twice daily for allergies and runny nose FLUTICASONE PROPIONATE 28730894982 Active Robbie Busby MD Active CHERATUSSIN AC 100-10 MG/5ML ORAL SOLN 7.5 mL PO q 4-6 hrs PRN cough GUAIFENESIN-CODEINE 65377551313 No Longer Active Robbie Busby MD Active AZITHROMYCIN 250 MG ORAL TABS 2 tablets PO today---then, 1 tablet PO daily x 4 more days (and 1 optional refill) AZITHROMYCIN 43375010484 No Longer Active Robbie Busby MD Active CLONIDINE HCL 0.2 MG ORAL TABS 1 TAB BY MOUTH EVERY 8 HOURS CLONIDINE HCL 97520979517 Active Erin Garsia APRN Active NORVASC 10 MG TAB 1 tablet by mouth daily AMLODIPINE BESYLATE 25181110691 No Longer Active Alex ALVAREZ Active IMDUR 60 MG TAB CR take 1 tab po qday for blood pressure ISOSORBIDE MONONITRATE Active Robbie Busby MD Active ISOSORBIDE DINITRATE 30 MG TABS Take one by mouth daily ISOSORBIDE DINITRATE 72777597879 No Longer Active Robbie Busby MD Active VIIBRYD 40 MG TABS 1 TA B PO DAILY VILAZODONE HCL 97495248767 Active Robbie Busby MD Active LORATADINE 10 MG TABS 1 tablet by mouth daily for congestion and allergies. LORATADINE 99592127731 Active Robbie Busby MD Active ZITHROMAX 250 MG TAB 2 po today, then 1 po q days 2-5 AZITHROMYCIN 66430826391 No Longer Active Robbie Busby MD Active FVJFEJOY-PWH-4 0.3 MG/24HR PTWK apply 2 patches q week for HTN CLONIDINE HCL 35398984289 Active Robbie Busby MD Active NITROSTAT 0.4 MG SUBL PRN NITROGLYCERIN 15829947665 Active Robbie Busby MD Active DOXAZOSIN MESYLATE 4 MG TABS Take one by mouth daily DOXAZOSIN MESYLATE 38965920410 Active Erin Garsia APRN Active TOPROL XL 200 MG [id number] Take one by mouth daily METOPROLOL SUCCINATE 93638916737 Active Robbie Busby MD Active VENLAFAXINE HCL ER 150 MG [id number] Take one by mouth daily VENLAFAXINE HCL 13718740768 Active Robbie Busby MD Active LIPITOR 40 MG TABS Take one by mouth daily ATORVASTATIN CALCIUM 35863054459 Active Robbie Busby MD Active ISOSORBIDE DINITRATE 30 MG TABS Take one by mouth daily ISOSORBIDE DINITRATE 30 MG TABS 126593 ISOSORBIDE DINITRATE Inactive NORVASC 10 MG TAB 1 tablet by mouth daily NORVASC 10 MG TAB 117416 AMLODIPINE BESYLATE Inactive AZITHROMYCIN 250 MG ORAL TABS 2 tablets PO today---then, 1 tablet PO daily x 4 more days (and 1 optional refill) AZITHROMYCIN 250 MG ORAL TABS 1149302 AZITHROMYCIN Inactive CHERATUSSIN AC 100-10 MG/5ML ORAL SOLN 7.5 mL PO q 4-6 hrs PRN cough CHERATUSSIN AC 100-10 MG/5ML ORAL SOLN 676814 GUAIFENESIN- CODEINE Inactive VIIBRYD 40 MG TABS take 1 tab po qday for depression. VIIBRYD 40 MG TABS VILAZODONE HCL Inactive HYDRALAZINE HCL 25 MG TABS 1 tablet by mouth tid for hypertension HYDRALAZINE HCL 25 MG TABS 443151 HYDRALAZINE HCL Inactive SPIRONOLACTONE 50 MG TABS 1 tablet by mouth twice a day SPIRONOLACTONE 50 MG TABS 566172 SPIRONOLACTONE Inactive FENOFIBRATE 145 MG TABS Take one by mouth daily FENOFIBRATE 145 MG TABS 993425 FENOFIBRATE Inactive PROTONIX 40 MG SOLR 1 po qday for acid reflux PROTONIX 40 MG SOLR 722579 PANTOPRAZOLE SODIUM Inactive CEFDINIR 300 MG ORAL CAPS Take 1 cap po bid x 10 days CEFDINIR 300 MG ORAL CAPS 196568 CEFDINIR Inactive PREDNISONE 20 MG TAB 1 tablet twice daily for 2 days, then 1 tablet once daily for 2 days PREDNISONE 20 MG TAB 735237 PREDNISONE Inactive NYSTATIN 992120 UNIT/ML M/T SUSP 5mL po QID x 10 days NYSTATIN 763585 UNIT/ML M/T SUSP 623058 NYSTATIN Inactive BETADINE 10 % EXT SOLN 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 BETADINE 10 % EXT SOLN 5967931 POVIDONE-IODINE Inactive TRILEPTAL 150 MG ORAL TABS 1 TAB PO Q HS TRILEPTAL 150 MG ORAL TABS 174897 OXCARBAZEPINE Inactive LAMISIL 125 MG ORAL PACK 1 TAB PO DAILY LAMISIL 125 MG ORAL PACK TERBINAFINE HCL Inactive HYDROCHLOROTHIAZIDE TABS Take one by mouth daily HYDROCHLOROTHIAZIDE TABS HYDROCHLOROTHIAZIDE TABS Inactive HYDROCODONE-ACETAMINOPHEN 5-325 MG TABS 1 tab by mouth BID prn back pain 2013 HYDROCODONE-ACETAMINOPHEN 5-325 MG TABS 813714 HYDROCODONE -ACETAMINOPHEN Inactive HYDRALAZINE HCL 50 MG ORAL TABS TWO BY MOUTH THREE TIMES DAILY HYDRALAZINE HCL 50 MG ORAL TABS 349313 HYDRALAZINE HCL Inactive ZITHROMAX 250 MG TAB 2 po today, then 1 po q days 2-5 ZITHROMAX 250 MG TAB 1758057 AZITHROMYCIN Inactive TERBINAFINE HCL 250 MG TABS 1 tab po qday for foot infection 2014 TERBINAFINE HCL 250 MG TABS 836232 TERBINAFINE HCL Inactive KEFLEX 500 MG CAP 1 po TID x 10 days KEFLEX 500 MG CAP 167481 CEPHALEXIN Inactive BACTRIM DS 800-160 MG TAB 1 tab by mouth twice daily BACTRIM DS 800-160 MG TAB 969545 TRIMETHOPRIM-SULFAMETHOXAZOLE Inactive Advance Directives Directive Description Start [...] Acid - Chemistry sodium, serum 139 mmol/L 337-660 4565/04/22 carbon dioxide, venous blood 29.4 mmol/L 21.0-32.0 [...] to Follow Negative Lab Report: VITAMIN D, 25-HYDROXY/00739 - Chemistry vitamin D 25-hydroxy, serum 23 ng/mL 30-100 Encounters Code Encounter Date Provider Facility CPT-06432 Level 4 Est. 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 Patient 09:16:37 CDT Robbie Busby MD [facility] CPT-99449 Level 3 Est. Patient 19:38:43 CDT Robbie Busby MD [facility] CPT-45785 Level 3 Est. Patient 11:53:38 CDT Robbie Busby MD [facility]-77525 Level 4 Est. Patient 12:52:22 CDT Rober Rodríguez APRN [facility] CPT-13703 Level 4 Est. Patient 22:55:17 CDT Robbie Busby MD [facility]-61840 Level 3 Est. Patient 12:38:24 CDT Desmond Diaz DO [facility] CPT-29402 Level 4 Est. 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 Patient 14:50:10 CDT Robbie Busby MD [facility] CPT-25746 Level 4 Est. Patient 23:30:43 CDT Robbie Busby MD [facility] CPT-59546 Level 4 Est. Patient 10:30:43 CDT Robbie Busby MD [facility] CPT-00582 Level 3 Est. Patient 17:08:12 CDT Alex ALVAREZ [facility] CPT-55065 Level 4 Est. Patient 17:51:38 CDT Robbie Busby MD [facility] CPT-13820 Level 4 Est. Patient 14:00:21 CDT Robbie Busby MD [facility] CPT-15262 Level 4 Est. Patient 12:46:48 CDT Robbie Busby MD [facility]-60389 Level 4 Est. Patient 13:34:33 CDT Robbie Busby MD [facility] CPT-22440 Level 4 Est. Patient 16:58:28 CDT Robbie Busby MD [facility] CPT-37417 Level 3 Est. Patient 19:36:53 CDT Alex ALVAREZ [facility] CPT-25887 Level 3 Est. 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 CPT-J1040 Depo Medrol 80 mg (Methyl Prednisolone Acetate) 09:43: 34 WORK TICKET DISTRIBUTOR CPT-J1100 Decadron 8mg (Dexamethasone) 09:43:34 WORK TICKET DISTRIBUTOR CPT-J0696 Rocephin 1gm Inj Solr 09:43:34 WORK TICKET DISTRIBUTOR CPT-90613 Wound Culture - LAB USE ONLY 14:00:21 CDT CPT-I/D I/D Abscess 09:16:37 CDT CPT-98271 Venipuncture Draw Fee 15:20:23 CDT CPT-50556 Microalbumin - LAB USE ONLY 16:02:19 CDT CPT-30719 CBC - LAB USE ONLY 16:02:19 CDT CPT-24328 Venipuncture Draw Fee 16:02:19 CDT CPT-G0438 Initial Annual Wellness Exam 08:10:28 CDT CPT-36339 Venipuncture Draw Fee 13:07:17 CDT CPT-G0008 Administration of Influenza Virus Vaccine 16:09:59 CDT CPT-86138 Fluzone Quadrivalent Intramuscular Suspension 0.5 ML 16: 09:59 CDT CPT-42943 Spec Collection and Handling Fee 15:05:50 CDT
--- OUTSIDE RECORDS SUMMARY | 2018-04-18 10:48 | XMS REPORT | Clinical Summary ---
Author Author Admin, [facility] Organization [facility] Address Unknown Phone Unavailable Allergies, Adverse Reactions, [...] Generic Name NDC Status Provider Patient Instruction AMLODIPINE BESYLATE 10 MG TABS 1 tablet by mouth daily AMLODIPINE BESYLATE 82636456661 Active Robbie Busby MD Active CARVEDILOL 25 MG TABS 1 & 1/2 TAB po BID CARVEDILOL 80169903227 Active Robbie Busby MD Active VITAMIN D3 50696 UNIT CAPS 2 CAPS PO WEEKLY CHOLECALCIFEROL 92017995399 Active Vanessa August Active CEFDINIR 300 MG ORAL CAPS Take 1 cap po bid x 10 days CEFDINIR 38519586471 Active Jackie Junior MA Active PREDNISONE 20 MG TAB 1 tablet twice daily for 2 days, then 1 tablet once daily for 2 days PREDNISONE 07553441683 Active Desmond Diaz DO Active NEXIUM 40 MG CPDR 1 cap by mouth daily ESOMEPRAZOLE MAGNESIUM 60143466421 Active Gali Negro Active PROTONIX 40 MG SOLR 1 po qday for acid reflux PANTOPRAZOLE SODIUM 35631448975 No Longer Active Gali Negro Active BETADINE 10 % EXT SOLN 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 POVIDONE-IODINE 49944385611 Active Robbie Busby MD Active KEFLEX 500 MG CAP 1 po TID x 10 days CEPHALEXIN 42061342427 No Longer Active Robbie Busby MD Active FIORICET 50-300-40 MG ORAL CAPS take 1 tab po qday prn migraines. [id number] 72666431885 Active Robbie Busby MD Active TOPIRAMATE 50 MG ORAL TABS take 1 tab po BID for migraines. TOPIRAMATE 76164049222 Active Robbie Busby MD Active HYDRALAZINE HCL 50 MG ORAL TABS TWO BY MOUTH THREE TIMES DAILY HYDRALAZINE HCL 98923046816 Active Robbie Busby MD Active MECLIZINE HCL 25 MG TAB one 4 times a day as needed for dizziness MECLIZINE HCL 18544739530 Active Robbie Busby MD Active TRILEPTAL 150 MG ORAL TABS 1 TAB PO Q HS OXCARBAZEPINE 99724934348 Active Robbie Busby MD Active TEMAZEPAM 15 MG ORAL CAPS 1 TAB PO Q HS TEMAZEPAM 55003180847 Active Robbie Busby MD Active ALPRAZOLAM 2 MG ORAL TABS 1 TAB PO BID ALPRAZOLAM 49406965555 Active Robbie Busby MD Active FENOFIBRATE 145 MG TABS Take one by mouth daily FENOFIBRATE 94136758658 No Longer Active Robbie Busby MD Active LAMISIL 125 MG ORAL PACK 1 TAB PO DAILY TERBINAFINE HCL 37038975711 Active Robbie Busby MD Active SPIRONOLACTONE 50 MG TABS 1 tablet by mouth twice a day SPIRONOLACTONE 10865231278 No Longer Active Robbie Busby MD Active HYDRALAZINE HCL 25 MG TABS 1 tablet by mouth tid for hypertension HYDRALAZINE HCL 21112838334 No Longer Active Robbie Busby MD Active VIIBRYD 40 MG TABS take 1 tab po qday for depression. VILAZODONE HCL 84452166164 No Longer Active Robbie Busby MD Active TERBINAFINE HCL 250 MG TABS 1 tab po qday for foot infection 2014 TERBINAFINE HCL 90519448445 No Longer Active Robbie Busby MD Active GABAPENTIN 300 MG CAPS 1 po q hs for nerve pain GABAPENTIN 14538584539 Active Robbie Busby MD Active FLONASE 50 MCG/ACT SUSP 1 spray each nostril twice daily for allergies and runny nose FLUTICASONE PROPIONATE 31593395533 Active Robbie Busby MD Active CHERATUSSIN AC 100-10 MG/5ML ORAL SOLN 7.5 mL PO q 4-6 hrs PRN cough GUAIFENESIN-CODEINE 14589148316 No Longer Active Robbie Busby MD Active AZITHROMYCIN 250 MG ORAL TABS 2 tablets PO today---then, 1 tablet PO daily x 4 more days (and 1 optional refill) AZITHROMYCIN 31245152178 No Longer Active Robbie Busby MD Active CLONIDINE HCL 0.2 MG ORAL TABS 1 TAB BY MOUTH EVERY 8 HOURS CLONIDINE HCL 98695215496 Active Robbie Busby MD Active HYDROCHLOROTHIAZIDE TABS Take one by mouth daily HYDROCHLOROTHIAZIDE TABS 86504061119 Active Alex ALVAREZ Active NORVASC 10 MG TAB 1 tablet by mouth daily AMLODIPINE BESYLATE 22186716414 No Longer Active Alex ALVAREZ Active IMDUR 60 MG TAB CR take 1 tab po qday for blood pressure ISOSORBIDE MONONITRATE Active Robbie Busby MD Active ISOSORBIDE DINITRATE 30 MG TABS Take one by mouth daily ISOSORBIDE DINITRATE 66983760777 No Longer Active Robbie Busby MD Active VIIBRYD 40 MG TABS 1 TA B PO DAILY VILAZODONE HCL 14591883390 Active Erin Garsia APRN Active LORATADINE 10 MG TABS 1 tablet by mouth daily for congestion and allergies. LORATADINE 03469386653 Active Robbie Busby MD Active ZITHROMAX 250 MG TAB 2 po today, then 1 po q days 2-5 AZITHROMYCIN 99464240223 No Longer Active Robbie Busby MD Active HYDROCODONE-ACETAMINOPHEN 5-325 MG TABS 1 tab by mouth BID prn back pain 2013 HYDROCODONE-ACETAMINOPHEN 00940506397 Active Robbie Busby MD Active UDSTEZCE-SMK-5 0.3 MG/24HR PTWK apply 2 patches q week for HTN CLONIDINE HCL 15962114047 Active Robbie Busby MD Active NITROSTAT 0.4 MG SUBL PRN NITROGLYCERIN 29006213006 Active Robbie Busby MD Active DOXAZOSIN MESYLATE 4 MG TABS Take one by mouth daily DOXAZOSIN MESYLATE 46991338146 Active Robbie Busby MD Active TOPROL XL 200 MG [id number] Take one by mouth daily METOPROLOL SUCCINATE 82595614360 Active Robbie Busby MD Active VENLAFAXINE HCL ER 150 MG [id number]-RJV Take one by mouth daily VENLAFAXINE HCL 91942725048 Active Robbie Busby MD Active LIPITOR 40 MG TABS Take one by mouth daily ATORVASTATIN CALCIUM 14084920545 Active Robbie Busby MD Active ISOSORBIDE DINITRATE 30 MG TABS Take one by mouth daily ISOSORBIDE DINITRATE 30 MG TABS 587891 ISOSORBIDE DINITRATE Inactive NORVASC 10 MG TAB 1 tablet by mouth daily NORVASC 10 MG TAB 603870 AMLODIPINE BESYLATE Inactive AZITHROMYCIN 250 MG ORAL TABS 2 tablets PO today---then, 1 tablet PO daily x 4 more days (and 1 optional refill) AZITHROMYCIN 250 MG ORAL TABS 4011111 AZITHROMYCIN Inactive CHERATUSSIN AC 100-10 MG/5ML ORAL SOLN 7.5 mL PO q 4-6 hrs PRN cough CHERATUSSIN AC 100-10 MG/5ML ORAL SOLN 230426 GUAIFENESIN- CODEINE Inactive VIIBRYD 40 MG TABS take 1 tab po qday for depression. VIIBRYD 40 MG TABS VILAZODONE HCL Inactive HYDRALAZINE HCL 25 MG TABS 1 tablet by mouth tid for hypertension HYDRALAZINE HCL 25 MG TABS 923116 HYDRALAZINE HCL Inactive SPIRONOLACTONE 50 MG TABS 1 tablet by mouth twice a day SPIRONOLACTONE 50 MG TABS 192602 SPIRONOLACTONE Inactive FENOFIBRATE 145 MG TABS Take one by mouth daily FENOFIBRATE 145 MG TABS 952947 FENOFIBRATE Inactive PROTONIX 40 MG SOLR 1 po qday for acid reflux PROTONIX 40 MG SOLR 469348 PANTOPRAZOLE SODIUM Inactive ZITHROMAX 250 MG TAB 2 po today, then 1 po q days 2-5 ZITHROMAX 250 MG TAB 5811814 AZITHROMYCIN Inactive TERBINAFINE HCL 250 MG TABS 1 tab po qday for foot infection 2014 TERBINAFINE HCL 250 MG TABS 187063 TERBINAFINE HCL Inactive KEFLEX 500 MG CAP 1 po TID x 10 days KEFLEX 500 MG CAP 910130 CEPHALEXIN Inactive Vital Signs Date Name Value [...] E&M - 3141-9 216 [lb_av] Weight Measured Diagnostic Results Date Name Value Unit Range Description Lab Report: Comp. Metabolic Panel, Uric Acid - Chemistry sodium, serum 139 mmol/L 976-742 5648/04/22 carbon dioxide, venous blood 29.4 mmol/L 21.0-32.0 [...] PANEL - Chemistry cholesterol, serum 211 mg/dL 109-316 8540/08/31 triglyceride, serum, fasting 429 mg/dL 30-200 HDL [...] to Follow Negative Lab Report: VITAMIN D, 25-HYDROXY/95598 - Chemistry vitamin D 25-hydroxy, serum 23 ng/mL 30-100 Encounters Code Encounter Date Provider Facility CPT-99594 Level 3 Est. Patient 12:38:24 CDT Desmond Diaz DO [facility] CPT-05275 Level 4 Est. 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 Patient 14:50:10 CDT Robbie Busby MD [facility] CPT-03906 Level 4 Est. Patient 23:30:43 CDT Robbie Busby MD [facility] CPT-71362 Level 4 Est. Patient 10:30:43 CDT Robbie Busby MD [facility] CPT-15252 Level 3 Est. Patient 17:08:12 CDT Alex ALVAREZ [facility] CPT-95048 Level 4 Est. Patient 17:51:38 CDT Robbie Busby MD [facility] CPT-97382 Level 4 Est. Patient 14:00:21 CDT Robbie Busby MD [facility] CPT-76268 Level 4 Est. Patient 12:46:48 CDT Robbie Busby MD [facility] CPT-69757 Level 4 Est. Patient 13:34:33 CDT Robbie Busby MD [facility] CPT-16221 Level 4 Est. Patient 16:58:28 CDT Robbie Busby MD [facility] CPT-22360 Level 3 Est. Patient 19:36:53 CDT Alex ALVAREZ [facility] CPT-65660 Level 3 Est. Patient 12:58:15 CDT Robbie Busby MD [facility] Procedures Code Procedure Name Date Entry Date Standard Description CPT-55837 Venipuncture Draw Fee 13:07:17 CDT CPT-G0008 Administration of Influenza Virus Vaccine 16:09:59 CDT CPT-74817 Fluzone Quadrivalent Intramuscular Suspension 0.5 ML 16: 09:59 CDT CPT-74950 Spec Collection and Handling Fee 15:05:50 CDT
--- OUTSIDE RECORDS SUMMARY | 2018-04-18 10:48 | XMS REPORT | Clinical Summary ---
Author Author Admin, AKUA Organization [facility] Address Unknown Phone Unavailable Allergies, Adverse Reactions, Alerts Allergy Name Reaction Description Start Date Severity Status Provider No Known Allergies JONATHAN Stanley Conditions or Problems Problem Name Problem Code [...] obstruction and other lower urinary tract (LUTS) Medication List Medication Instructions Start Date Stop Date Generic Name NDC Status Provider Patient Instruction NEXIUM 40 MG CPDR 1 cap by mouth daily ESOMEPRAZOLE MAGNESIUM 87414237651 Active Galileonila Negro Active PROTONIX 40 MG SOLR 1 po qday for acid reflux PANTOPRAZOLE SODIUM 02756633888 No Longer Active Gali Negro Active BETADINE 10 % EXT SOLN 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 POVIDONE-IODINE 84166260284 Active Robbie Busby MD Active KEFLEX 500 MG CAP 1 po TID x 10 days CEPHALEXIN 44069368149 No Longer Active Robbie Busby MD Active FIORICET 50-300-40 MG ORAL CAPS take 1 tab po qday prn migraines. [id number] 15508632839 Active Robbie Busby MD Active TOPIRAMATE 50 MG ORAL TABS take 1 tab po BID for migraines. TOPIRAMATE 04619304322 Active Robbie Busby MD Active HYDRALAZINE HCL 50 MG ORAL TABS TWO BY MOUTH THREE TIMES DAILY HYDRALAZINE HCL 21207680046 Active Robbie Busby MD Active MECLIZINE HCL 25 MG TAB one 4 times a day as needed for dizziness MECLIZINE HCL 92977475121 Active Robbie Busby MD Active TRILEPTAL 150 MG ORAL TABS 1 TAB PO Q HS OXCARBAZEPINE 04703346552 Active Robbie Busby MD Active TEMAZEPAM 15 MG ORAL CAPS 1 TAB PO Q HS TEMAZEPAM 69342222145 Active Robbie Busby MD Active ALPRAZOLAM 2 MG ORAL TABS 1 TAB PO BID ALPRAZOLAM 96785747344 Active Robbie Busby MD Active FENOFIBRATE 145 MG TABS Take one by mouth daily FENOFIBRATE 73515216235 No Longer Active Robbie Busby MD Active LAMISIL 125 MG ORAL PACK 1 TAB PO DAILY TERBINAFINE HCL 86111467795 Active Robbie Busby MD Active SPIRONOLACTONE 50 MG TABS 1 tablet by mouth twice a day SPIRONOLACTONE 74971359028 No Longer Active Robbie Busby MD Active HYDRALAZINE HCL 25 MG TABS 1 tablet by mouth tid for hypertension HYDRALAZINE HCL 25684618756 No Longer Active Robbie Busby MD Active VIIBRYD 40 MG TABS take 1 tab po qday for depression. VILAZODONE HCL 12556216003 No Longer Active Robbie Busby MD Active TERBINAFINE HCL 250 MG TABS 1 tab po qday for foot infection 2014 TERBINAFINE HCL 63024129847 No Longer Active Robbie Busby MD Active GABAPENTIN 300 MG CAPS 1 po q hs for nerve pain GABAPENTIN 60718094372 Active Robbie Busby MD Active FLONASE 50 MCG/ACT SUSP 1 spray each nostril twice daily for allergies and runny nose FLUTICASONE PROPIONATE 79699324217 Active Robbie Busby MD Active CHERATUSSIN AC 100-10 MG/5ML ORAL SOLN 7.5 mL PO q 4-6 hrs PRN cough GUAIFENESIN-CODEINE 27018496338 No Longer Active Robbie Busby MD Active AZITHROMYCIN 250 MG ORAL TABS 2 tablets PO today---then, 1 tablet PO daily x 4 more days (and 1 optional refill) AZITHROMYCIN 64650210444 No Longer Active Robbie Busby MD Active CLONIDINE HCL 0.2 MG ORAL TABS 1 TAB BY MOUTH EVERY 8 HOURS CLONIDINE HCL 65828979176 Active Robbie Busby MD Active HYDROCHLOROTHIAZIDE TABS Take one by mouth daily HYDROCHLOROTHIAZIDE TABS 96884679350 Active Alex ALVAREZ Active NORVASC 10 MG TAB 1 tablet by mouth daily AMLODIPINE BESYLATE 82688632788 No Longer Active Alex ALVAREZ Active IMDUR 60 MG TAB CR take 1 tab po qday for blood pressure ISOSORBIDE MONONITRATE Active Robbie Busby MD Active ISOSORBIDE DINITRATE 30 MG TABS Take one by mouth daily ISOSORBIDE DINITRATE 70580268327 No Longer Active Robbie Busby MD Active VIIBRYD 40 MG TABS 1 TA B PO DAILY VILAZODONE HCL 43007524574 Active Robbie Busby MD Active LORATADINE 10 MG TABS 1 tablet by mouth daily for congestion and allergies. LORATADINE 13256708431 Active Robbie Busby MD Active ZITHROMAX 250 MG TAB 2 po today, then 1 po q days 2-5 AZITHROMYCIN 80128565554 No Longer Active Robbie Busby MD Active HYDROCODONE-ACETAMINOPHEN 5-325 MG TABS 1 tab by mouth BID prn back pain 2013 HYDROCODONE-ACETAMINOPHEN 91458224825 Active Robbie Busby MD Active PRKLKSIS-TGO-7 0.3 MG/24HR PTWK apply 2 patches q week for HTN CLONIDINE HCL 84721425776 Active Robbie Busby MD Active NITROSTAT 0.4 MG SUBL PRN NITROGLYCERIN 67044610595 Active Robbie Busby MD Active DOXAZOSIN MESYLATE 4 MG TABS Take one by mouth daily DOXAZOSIN MESYLATE 69039749273 Active Robbie Busby MD Active TOPROL XL 200 MG [id number] Take one by mouth daily METOPROLOL SUCCINATE 20800480635 Active Robbie Busby MD Active VENLAFAXINE HCL ER 150 MG [id number] Take one by mouth daily VENLAFAXINE HCL 54519765087 Active Robbie Busby MD Active LIPITOR 40 MG TABS Take one by mouth daily ATORVASTATIN CALCIUM 09545379857 Active Robbie Busby MD Active ISOSORBIDE DINITRATE 30 MG TABS Take one by mouth daily ISOSORBIDE DINITRATE 30 MG TABS 847857 ISOSORBIDE DINITRATE Inactive NORVASC 10 MG TAB 1 tablet by mouth daily NORVASC 10 MG TAB 715028 AMLODIPINE BESYLATE Inactive AZITHROMYCIN 250 MG ORAL TABS 2 tablets PO today---then, 1 tablet PO daily x 4 more days (and 1 optional refill) AZITHROMYCIN 250 MG ORAL TABS 9191752 AZITHROMYCIN Inactive CHERATUSSIN AC 100-10 MG/5ML ORAL SOLN 7.5 mL PO q 4-6 hrs PRN cough CHERATUSSIN AC 100-10 MG/5ML ORAL SOLN 333147 GUAIFENESIN- CODEINE Inactive VIIBRYD 40 MG TABS take 1 tab po qday for depression. VIIBRYD 40 MG TABS VILAZODONE HCL Inactive HYDRALAZINE HCL 25 MG TABS 1 tablet by mouth tid for hypertension HYDRALAZINE HCL 25 MG TABS 517596 HYDRALAZINE HCL Inactive SPIRONOLACTONE 50 MG TABS 1 tablet by mouth twice a day SPIRONOLACTONE 50 MG TABS 241513 SPIRONOLACTONE Inactive FENOFIBRATE 145 MG TABS Take one by mouth daily FENOFIBRATE 145 MG TABS 155181 FENOFIBRATE Inactive PROTONIX 40 MG SOLR 1 po qday for acid reflux PROTONIX 40 MG SOLR PANTOPRAZOLE SODIUM Inactive ZITHROMAX 250 MG TAB 2 po today, then 1 po q days 2-5 ZITHROMAX 250 MG TAB 0635746 AZITHROMYCIN Inactive TERBINAFINE HCL 250 MG TABS 1 tab po qday for foot infection 2014 TERBINAFINE HCL 250 MG TABS 271201 TERBINAFINE HCL Inactive KEFLEX 500 MG CAP 1 po TID x 10 days KEFLEX 500 MG CAP 877720 CEPHALEXIN Inactive Vital Signs Date Name Value [...] PANEL - Chemistry cholesterol, serum 211 mg/dL 312-167 3833/08/31 triglyceride, serum, fasting 429 mg/dL 30-200 HDL cholesterol, serum 25 mg/dL 32-96 LDL cholesterol, serum 100 mg/dL 0-130 aspartate aminotransferase (SGOT), serum 19 U/L 15-37 alanine aminotransferase (SGPT), serum 32 U/L 12-78 bilirubin, serum, total 0.70 mg/dL 0.00-1.00 Lab Report: Prostatic Specific Ag - Chemistry prostate specific antigen 1.31 ng/mL 0.00-4.00 Encounters Code Encounter Date Provider Facility CPT-74816 Level 4 Est. 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 CPT-99090 Level 4 Est. Patient 14:50:10 CDT Robbie Busby MD [facility] CPT-78763 Level 4 Est. Patient 23:30:43 CDT Robbie Busby MD [facility] CPT-81329 Level 4 Est. Patient 10:30:43 CDT Robbie Busby MD [facility] CPT-83875 Level 3 Est. Patient 17:08:[address] [facility] CPT-99602 Level 4 Est. Patient 17:51:38 CDT Robbie Busby MD [facility] CPT-18194 Level 4 Est. Patient 14:00:21 CDT Robbie Busby MD [facility] CPT-71898 Level 4 Est. Patient 12:46:48 CDT Robbie Busby MD [facility] CPT-91118 Level 4 Est. Patient 13:34:33 CDT Robbie Busby MD [facility] CPT-02965 Level 4 Est. Patient 16:58:28 CDT Robbie Busby MD [facility] CPT-06205 Level 3 Est. Patient 19:36:[address] [facility] CPT-65749 Level 3 Est. Patient 12:58:15 CDT Robbie Busby MD [facility] Procedures Code Procedure Name Date Entry Date Standard Description CPT-G0008 Administration of Influenza Virus Vaccine 16:09:59 CDT CPT-25273 Fluzone Quadrivalent Intramuscular Suspension 0.5 ML 16: 09:59 CDT CPT-35188 Spec Collection and Handling Fee 15:05:50 CDT
--- OUTSIDE RECORDS SUMMARY | 2018-04-18 10:48 | XMS REPORT | Clinical Summary ---
Author Author Admin, Nicolas Organization [facility] Address Unknown Phone Unavailable Allergies, Adverse Reactions, [...] NDC Status Provider Patient Instruction VITAMIN D3 46482 UNIT CAPS 2 CAPS PO WEEKLY CHOLECALCIFEROL 79829807470 Active Vanessa August Active CEFDINIR 300 MG ORAL CAPS Take 1 cap po bid x 10 days CEFDINIR 98607776077 Active Jackie Junior MA Active PREDNISONE 20 MG TAB 1 tablet twice daily for 2 days, then 1 tablet once daily for 2 days PREDNISONE 62016758931 Active Desmond Diaz DO Active NEXIUM 40 MG CPDR 1 cap by mouth daily ESOMEPRAZOLE MAGNESIUM 11119183053 Active Gali Nergo Active PROTONIX 40 MG SOLR 1 po qday for acid reflux PANTOPRAZOLE SODIUM 15382345186 No Longer Active Galileonila Negro Active BETADINE 10 % EXT SOLN 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 POVIDONE-IODINE 52728500955 Active Robbie Busby MD Active KEFLEX 500 MG CAP 1 po TID x 10 days CEPHALEXIN 18878192614 No Longer Active Robbie Busby MD Active FIORICET 50-300-40 MG ORAL CAPS take 1 tab po qday prn migraines. [id number] 35790820186 Active Robbie Busby MD Active TOPIRAMATE 50 MG ORAL TABS take 1 tab po BID for migraines. TOPIRAMATE 20239298296 Active Robbie Busby MD Active HYDRALAZINE HCL 50 MG ORAL TABS TWO BY MOUTH THREE TIMES DAILY HYDRALAZINE HCL 18214520034 Active Robbie Busby MD Active MECLIZINE HCL 25 MG TAB one 4 times a day as needed for dizziness MECLIZINE HCL 89336432246 Active Robbie Busby MD Active TRILEPTAL 150 MG ORAL TABS 1 TAB PO Q HS OXCARBAZEPINE 72696667444 Active Robbie Busby MD Active TEMAZEPAM 15 MG ORAL CAPS 1 TAB PO Q HS TEMAZEPAM 43106173568 Active Robbie Busby MD Active ALPRAZOLAM 2 MG ORAL TABS 1 TAB PO BID ALPRAZOLAM 51080154246 Active Robbie Busby MD Active FENOFIBRATE 145 MG TABS Take one by mouth daily FENOFIBRATE 30892902428 No Longer Active Robbie Busby MD Active LAMISIL 125 MG ORAL PACK 1 TAB PO DAILY TERBINAFINE HCL 72250291735 Active Robbie Busby MD Active SPIRONOLACTONE 50 MG TABS 1 tablet by mouth twice a day SPIRONOLACTONE 91912212133 No Longer Active Robbie Busby MD Active HYDRALAZINE HCL 25 MG TABS 1 tablet by mouth tid for hypertension HYDRALAZINE HCL 22513265090 No Longer Active Robbie Busby MD Active VIIBRYD 40 MG TABS take 1 tab po qday for depression. VILAZODONE HCL 58906414798 No Longer Active Robbie Busby MD Active TERBINAFINE HCL 250 MG TABS 1 tab po qday for foot infection 2014 TERBINAFINE HCL 55998131565 No Longer Active Robbie Busby MD Active GABAPENTIN 300 MG CAPS 1 po q hs for nerve pain GABAPENTIN 26785424464 Active Robbie Busby MD Active FLONASE 50 MCG/ACT SUSP 1 spray each nostril twice daily for allergies and runny nose FLUTICASONE PROPIONATE 92259408636 Active Robbie Busby MD Active CHERATUSSIN AC 100-10 MG/5ML ORAL SOLN 7.5 mL PO q 4-6 hrs PRN cough GUAIFENESIN-CODEINE 97297936312 No Longer Active Robbie Busby MD Active AZITHROMYCIN 250 MG ORAL TABS 2 tablets PO today---then, 1 tablet PO daily x 4 more days (and 1 optional refill) AZITHROMYCIN 86557386475 No Longer Active Robbie Busby MD Active CLONIDINE HCL 0.2 MG ORAL TABS 1 TAB BY MOUTH EVERY 8 HOURS CLONIDINE HCL 62127266476 Active Robbie Busby MD Active HYDROCHLOROTHIAZIDE TABS Take one by mouth daily HYDROCHLOROTHIAZIDE TABS 03231850786 Active Alex ALVAREZ Active NORVASC 10 MG TAB 1 tablet by mouth daily AMLODIPINE BESYLATE 41708621109 No Longer Active Alex ALVAREZ Active IMDUR 60 MG TAB CR take 1 tab po qday for blood pressure ISOSORBIDE MONONITRATE Active Robbie Busby MD Active ISOSORBIDE DINITRATE 30 MG TABS Take one by mouth daily ISOSORBIDE DINITRATE 73199594285 No Longer Active Robbie Busby MD Active VIIBRYD 40 MG TABS 1 TA B PO DAILY VILAZODONE HCL 82543054988 Active Erin Garsia APRN Active LORATADINE 10 MG TABS 1 tablet by mouth daily for congestion and allergies. LORATADINE 54021207104 Active Robbie Busby MD Active ZITHROMAX 250 MG TAB 2 po today, then 1 po q days 2-5 AZITHROMYCIN 62622715403 No Longer Active Robbie Busby MD Active HYDROCODONE-ACETAMINOPHEN 5-325 MG TABS 1 tab by mouth BID prn back pain 2013 HYDROCODONE-ACETAMINOPHEN 60537502388 Active Robbie Busby MD Active [id number] 0.3 MG/24HR PTWK apply 2 patches q week for HTN CLONIDINE HCL 74844269798 Active Robbie Busby MD Active NITROSTAT 0.4 MG SUBL PRN NITROGLYCERIN 32370887999 Active Robbie Busby MD Active DOXAZOSIN MESYLATE 4 MG TABS Take one by mouth daily DOXAZOSIN MESYLATE 13906015184 Active Robbie Busby MD Active TOPROL XL 200 MG [id number] Take one by mouth daily METOPROLOL SUCCINATE 08126397637 Active Robbie Busby MD Active VENLAFAXINE HCL ER 150 MG [id number] Take one by mouth daily VENLAFAXINE HCL 05712198214 Active Robbie Busby MD Active LIPITOR 40 MG TABS Take one by mouth daily ATORVASTATIN CALCIUM 12257282394 Active Robbie Busby MD Active ISOSORBIDE DINITRATE 30 MG TABS Take one by mouth daily ISOSORBIDE DINITRATE 30 MG TABS 433402 ISOSORBIDE DINITRATE Inactive NORVASC 10 MG TAB 1 tablet by mouth daily NORVASC 10 MG TAB 476493 AMLODIPINE BESYLATE Inactive AZITHROMYCIN 250 MG ORAL TABS 2 tablets PO today---then, 1 tablet PO daily x 4 more days (and 1 optional refill) AZITHROMYCIN 250 MG ORAL TABS 5579395 AZITHROMYCIN Inactive CHERATUSSIN AC 100-10 MG/5ML ORAL SOLN 7.5 mL PO q 4-6 hrs PRN cough CHERATUSSIN AC 100-10 MG/5ML ORAL SOLN 011261 GUAIFENESIN- CODEINE Inactive VIIBRYD 40 MG TABS take 1 tab po qday for depression. VIIBRYD 40 MG TABS VILAZODONE HCL Inactive HYDRALAZINE HCL 25 MG TABS 1 tablet by mouth tid for hypertension HYDRALAZINE HCL 25 MG TABS 652772 HYDRALAZINE HCL Inactive SPIRONOLACTONE 50 MG TABS 1 tablet by mouth twice a day SPIRONOLACTONE 50 MG TABS 469993 SPIRONOLACTONE Inactive FENOFIBRATE 145 MG TABS Take one by mouth daily FENOFIBRATE 145 MG TABS 058599 FENOFIBRATE Inactive PROTONIX 40 MG SOLR 1 po qday for acid reflux PROTONIX 40 MG SOLR 713462 PANTOPRAZOLE SODIUM Inactive ZITHROMAX 250 MG TAB 2 po today, then 1 po q days 2-5 ZITHROMAX 250 MG TAB 2254519 AZITHROMYCIN Inactive TERBINAFINE HCL 250 MG TABS 1 tab po qday for foot infection 2014 TERBINAFINE HCL 250 MG TABS 677073 TERBINAFINE HCL Inactive KEFLEX 500 MG CAP 1 po TID x 10 days KEFLEX 500 MG CAP 836914 CEPHALEXIN Inactive Vital Signs Date Name Value [...] Acid - Chemistry sodium, serum 139 mmol/L 079-101 5482/04/22 carbon dioxide, venous blood 29.4 mmol/L 21.0-32.0 [...] PANEL - Chemistry cholesterol, serum 211 mg/dL 081-062 7459/08/31 triglyceride, serum, fasting 429 mg/dL 30-200 HDL [...] to Follow Negative Lab Report: VITAMIN D, 25-HYDROXY/70726 - Chemistry vitamin D 25-hydroxy, serum 23 ng/mL 30-100 Encounters Code Encounter Date Provider Facility CPT-34531 Level 3 Est. Patient 12:38:24 CDT Desmond Diaz DO [facility] CPT-52192 Level 4 Est. 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 Patient 14:50:10 CDT Robbie Busby MD [facility] CPT-43157 Level 4 Est. Patient 23:30:43 CDT Robbie Busby MD [facility] CPT-52086 Level 4 Est. Patient 10:30:43 CDT oRbbie Busby MD [facility] CPT-84228 Level 3 Est. Patient 17:08:12 CDT Alex ALVAREZ [facility] CPT-18727 Level 4 Est. Patient 17:51:38 CDT Robbie Busby MD [facility] CPT-97215 Level 4 Est. Patient 14:00:21 CDT Robbie Busby MD [facility] CPT-64251 Level 4 Est. Patient 12:46:48 CDT Robbie Busby MD [facility] CPT-62511 Level 4 Est. Patient 13:34:33 CDT Robbie Busby MD [facility] CPT-25943 Level 4 Est. Patient 16:58:28 CDT Robbie Busby MD [facility] CPT-39698 Level 3 Est. Patient 19:36:53 CDT Alex ALVAREZ [facility] CPT-85545 Level 3 Est. Patient 12:58:15 CDT Robbie Busby MD [facility] Procedures Code Procedure Name Date Entry Date Standard Description CPT-09591 Venipuncture Draw Fee 13:07:17 CDT CPT-G0008 Administration of Influenza Virus Vaccine 16:09:59 CDT CPT-06717 Fluzone Quadrivalent Intramuscular Suspension 0.5 ML 16: 09:59 CDT CPT-08464 Spec Collection and Handling Fee 15:05:50 CDT
--- OUTSIDE RECORDS SUMMARY | 2018-04-18 10:49 | XMS REPORT | Clinical Summary ---
Author Author Admin, [place] Organization [employer] Address Unknown Phone Unavailable Allergies, Adverse Reactions, [...] 1 tab by mouth twice daily TRIMETHOPRIM-SULFAMETHOXAZOLE [id number] No Longer Active Robbie Busby MD Active SPIRONOLACTONE 25 MG TAB 4 tablets by mouth daily SPIRONOLACTONE 73414947724 Active Robbie Busby MD Active HYDRALAZINE HCL 50 MG ORAL TABS TWO BY MOUTH THREE TIMES DAILY HYDRALAZINE HCL 38297520466 No Longer Active 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 MANAGER LOCAL Active HYDROCODONE-ACETAMINOPHEN 5-325 MG TABS 1 tab by mouth BID prn back pain 2013 HYDROCODONE-ACETAMINOPHEN 77604082478 No Longer Active 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 MANAGER LOCAL Active HYDROCHLOROTHIAZIDE TABS Take one by mouth daily HYDROCHLOROTHIAZIDE TABS 28081290885 No Longer Active 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 MANAGER LOCAL Active LAMISIL 125 MG ORAL PACK 1 TAB PO DAILY TERBINAFINE HCL 84542566982 No Longer Active 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 MANAGER LOCAL Active TRILEPTAL 150 MG ORAL TABS 1 TAB PO Q HS OXCARBAZEPINE 33846969084 No Longer Active 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 MANAGER LOCAL Active BETADINE 10 % EXT SOLN 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 POVIDONE-IODINE 07150774152 No Longer Active 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 MANAGER LOCAL Active NYSTATIN 974439 UNIT/ML M/T SUSP 5mL po QID x 10 days NYSTATIN 76623113523 No Longer Active Erin Garsia APRN Active PREDNISONE 20 MG TAB 1 tablet twice daily for 2 days, then 1 tablet once daily for 2 days PREDNISONE 98528149352 No Longer Active Robbie Busby MD Active CEFDINIR 300 MG ORAL CAPS Take 1 cap po bid x 10 days CEFDINIR 81077697352 No Longer Active Robbie Busby MD Active AMLODIPINE BESYLATE 10 MG TABS 1 tablet by mouth daily AMLODIPINE BESYLATE 81865335025 Active Robbie Busby MD Active CARVEDILOL 25 MG TABS 1 & 1/2 TAB po BID CARVEDILOL 78341813855 Active Erin Garsia APRN Active VITAMIN D3 34703 UNIT CAPS 2 CAPS PO WEEKLY CHOLECALCIFEROL 57908139088 Active Erin Garsia APRN Active NEXIUM 40 MG CPDR 1 cap by mouth daily ESOMEPRAZOLE MAGNESIUM 00182070162 Active Gali Negro Active PROTONIX 40 MG SOLR 1 po qday for acid reflux PANTOPRAZOLE SODIUM 86059321468 No Longer Active Gali Negro Active KEFLEX 500 MG CAP 1 po TID x 10 days CEPHALEXIN 66898040586 No Longer Active Robbie Busby MD Active FIORICET 50-300-40 MG ORAL CAPS take 1 tab po qday prn migraines. [id number] 30265282984 Active Robbie Busby MD Active TOPIRAMATE 50 MG ORAL TABS take 1 tab po BID for migraines. TOPIRAMATE 76136896216 Active Robbie Busby MD Active MECLIZINE HCL 25 MG TAB one 4 times a day as needed for dizziness MECLIZINE HCL 84088862415 Active Robbie Busby MD Active TEMAZEPAM 15 MG ORAL CAPS 1 TAB PO Q HS TEMAZEPAM 50079502454 Active Robbie Busby MD Active ALPRAZOLAM 2 MG ORAL TABS 1 TAB PO BID ALPRAZOLAM 57366954461 Active Robbie Busby MD Active FENOFIBRATE 145 MG TABS Take one by mouth daily FENOFIBRATE 57082760981 No Longer Active Robbie Busby MD Active SPIRONOLACTONE 50 MG TABS 1 tablet by mouth twice a day SPIRONOLACTONE 09695903623 No Longer Active Robbie Busby MD Active HYDRALAZINE HCL 25 MG TABS 1 tablet by mouth tid for hypertension HYDRALAZINE HCL 29910517469 No Longer Active Robbie Busby MD Active VIIBRYD 40 MG TABS take 1 tab po qday for depression. VILAZODONE HCL 48166559153 No Longer Active Robbie Busby MD Active TERBINAFINE HCL 250 MG TABS 1 tab po qday for foot infection 2014 TERBINAFINE HCL 25646476386 No Longer Active Robbie Busby MD Active GABAPENTIN 300 MG CAPS 1 po q hs for nerve pain GABAPENTIN 49785878937 Active Robbie Busby MD Active FLONASE 50 MCG/ACT SUSP 1 spray each nostril twice daily for allergies and runny nose FLUTICASONE PROPIONATE 69397258718 Active Robbie Busby MD Active CHERATUSSIN AC 100-10 MG/5ML ORAL SOLN 7.5 mL PO q 4-6 hrs PRN cough GUAIFENESIN-CODEINE 46304588994 No Longer Active Robbie Busby MD Active AZITHROMYCIN 250 MG ORAL TABS 2 tablets PO today---then, 1 tablet PO daily x 4 more days (and 1 optional refill) AZITHROMYCIN 53099858847 No Longer Active Robbie Busby MD Active CLONIDINE HCL 0.2 MG ORAL TABS 1 TAB BY MOUTH EVERY 8 HOURS CLONIDINE HCL 86899108543 Active Erin Garsia APRN Active NORVASC 10 MG TAB 1 tablet by mouth daily AMLODIPINE BESYLATE 46278894237 No Longer Active Alex ALVAREZ Active IMDUR 60 MG TAB CR take 1 tab po qday for blood pressure ISOSORBIDE MONONITRATE Active Robbie Busby MD Active ISOSORBIDE DINITRATE 30 MG TABS Take one by mouth daily ISOSORBIDE DINITRATE 23852531644 No Longer Active Robbie Busby MD Active VIIBRYD 40 MG TABS 1 TA B PO DAILY VILAZODONE HCL 90784864794 Active Robbie Busby MD Active LORATADINE 10 MG TABS 1 tablet by mouth daily for congestion and allergies. LORATADINE 73390946330 Active Robbie Busby MD Active ZITHROMAX 250 MG TAB 2 po today, then 1 po q days 2-5 AZITHROMYCIN 45260636954 No Longer Active Robbie Busby MD Active [id number] 0.3 MG/24HR PTWK apply 2 patches q week for HTN CLONIDINE HCL 91804717044 Active Robbie Busby MD Active NITROSTAT 0.4 MG SUBL PRN NITROGLYCERIN 67390387156 Active Robbie Busby MD Active DOXAZOSIN MESYLATE 4 MG TABS Take one by mouth daily DOXAZOSIN MESYLATE 02024812015 Active Robbie Busby MD Active TOPROL XL 200 MG [id number] Take one by mouth daily METOPROLOL SUCCINATE 93083458481 Active Robbie Busby MD Active VENLAFAXINE HCL ER 150 MG [id number] Take one by mouth daily VENLAFAXINE HCL 24331521882 Active Robbie Busby MD Active LIPITOR 40 MG TABS Take one by mouth daily ATORVASTATIN CALCIUM 41129441609 Active Robbie Busby MD Active ISOSORBIDE DINITRATE 30 MG TABS Take one by mouth daily ISOSORBIDE DINITRATE 30 MG TABS 404962 ISOSORBIDE DINITRATE Inactive NORVASC 10 MG TAB 1 tablet by mouth daily NORVASC 10 MG TAB 254164 AMLODIPINE BESYLATE Inactive AZITHROMYCIN 250 MG ORAL TABS 2 tablets PO today---then, 1 tablet PO daily x 4 more days (and 1 optional refill) AZITHROMYCIN 250 MG ORAL TABS 9099953 AZITHROMYCIN Inactive CHERATUSSIN AC 100-10 MG/5ML ORAL SOLN 7.5 mL PO q 4-6 hrs PRN cough CHERATUSSIN AC 100-10 MG/5ML ORAL SOLN 252722 GUAIFENESIN- CODEINE Inactive VIIBRYD 40 MG TABS take 1 tab po qday for depression. VIIBRYD 40 MG TABS VILAZODONE HCL Inactive HYDRALAZINE HCL 25 MG TABS 1 tablet by mouth tid for hypertension HYDRALAZINE HCL 25 MG TABS 839098 HYDRALAZINE HCL Inactive SPIRONOLACTONE 50 MG TABS 1 tablet by mouth twice a day SPIRONOLACTONE 50 MG TABS 244644 SPIRONOLACTONE Inactive FENOFIBRATE 145 MG TABS Take one by mouth daily FENOFIBRATE 145 MG TABS 567535 FENOFIBRATE Inactive PROTONIX 40 MG SOLR 1 po qday for acid reflux PROTONIX 40 MG SOLR 396587 PANTOPRAZOLE SODIUM Inactive CEFDINIR 300 MG ORAL CAPS Take 1 cap po bid x 10 days CEFDINIR 300 MG ORAL CAPS 804325 CEFDINIR Inactive PREDNISONE 20 MG TAB 1 tablet twice daily for 2 days, then 1 tablet once daily for 2 days PREDNISONE 20 MG TAB 404272 PREDNISONE Inactive NYSTATIN 460332 UNIT/ML M/T SUSP 5mL po QID x 10 days NYSTATIN 283376 UNIT/ML M/T SUSP 029899 NYSTATIN Inactive BETADINE 10 % EXT SOLN 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 BETADINE 10 % EXT SOLN 7045621 POVIDONE-IODINE Inactive TRILEPTAL 150 MG ORAL TABS 1 TAB PO Q HS TRILEPTAL 150 MG ORAL TABS 753983 OXCARBAZEPINE Inactive LAMISIL 125 MG ORAL PACK 1 TAB PO DAILY LAMISIL 125 MG ORAL PACK TERBINAFINE HCL Inactive HYDROCHLOROTHIAZIDE TABS Take one by mouth daily HYDROCHLOROTHIAZIDE TABS HYDROCHLOROTHIAZIDE TABS Inactive HYDROCODONE-ACETAMINOPHEN 5-325 MG TABS 1 tab by mouth BID prn back pain 2013 HYDROCODONE-ACETAMINOPHEN 5-325 MG TABS 583573 HYDROCODONE -ACETAMINOPHEN Inactive HYDRALAZINE HCL 50 MG ORAL TABS TWO BY MOUTH THREE TIMES DAILY HYDRALAZINE HCL 50 MG ORAL TABS 643748 HYDRALAZINE HCL Inactive ZITHROMAX 250 MG TAB 2 po today, then 1 po q days 2-5 ZITHROMAX 250 MG TAB 3380389 AZITHROMYCIN Inactive TERBINAFINE HCL 250 MG TABS 1 tab po qday for foot infection 2014 TERBINAFINE HCL 250 MG TABS 373131 TERBINAFINE HCL Inactive KEFLEX 500 MG CAP 1 po TID x 10 days KEFLEX 500 MG CAP 965946 CEPHALEXIN Inactive BACTRIM DS 800-160 MG TAB 1 tab by mouth twice daily BACTRIM DS 800-160 MG TAB 798910 TRIMETHOPRIM-SULFAMETHOXAZOLE Inactive Advance Directives Directive Description Start [...] Acid - Chemistry sodium, serum 139 mmol/L 295-173 2567/04/22 carbon dioxide, venous blood 29.4 mmol/L 21.0-32.0 [...] to Follow Negative Lab Report: VITAMIN D, 25-HYDROXY/20111 - Chemistry vitamin D 25-hydroxy, serum 23 ng/mL 30-100 Encounters Code Encounter Date Provider Facility CPT-29471 Level 3 Est. Patient 09:16:37 CDT Robbie Busby MD [facility] CPT-69954 Level 3 Est. Patient 19:38:43 CDT Robbie Busby MD [facility] CPT-74806 Level 3 Est. Patient 11:53:38 CDT Robbie Busby MD [facility] CPT-20347 Level 4 Est. Patient 12:52:22 CDT Rober Rodríguez APRN [facility] CPT-78579 Level 4 Est. Patient 22:55:17 CDT Robbie Busby MD [facility] CPT-63469 Level 3 Est. Patient 12:38:24 CDT Desmond Diaz DO [facility] CPT-53633 Level 4 Est. Patient 11:25:03 [employer] Robbie Busby MD [facility] CPT-15668 Level 4 Est. Patient 14:50:10 CDT Robbie Busby MD [facility] CPT-35586 Level 4 Est. Patient 23:30:43 CDT Robbie Busby MD [facility] CPT-59013 Level 4 Est. Patient 10:30:43 CDT Robbie Busby MD [facility] CPT-50917 Level 3 Est. Patient 17:08:12 CDT Alex ALVAREZ [facility] CPT-31842 Level 4 Est. Patient 17:51:38 CDT Robbie Busby MD [facility] CPT-68715 Level 4 Est. Patient 14:00:21 CDT Robbie Busby MD [facility] CPT-06270 Level 4 Est. Patient 12:46:48 CDT Robbie Busby MD [facility] CPT-64347 Level 4 Est. Patient 13:34:33 CDT Robbie Busby MD [facility] CPT-81511 Level 4 Est. Patient 16:58:28 CDT Robbie Busby MD [facility] CPT-77882 Level 3 Est. Patient 19:36:53 CDT Alex Shaw [facility] CPT-99073 Level 3 Est. Patient 12:58:15 CDT Robbie Busby MD [facility] Procedures Code Procedure Name Date Entry Date Standard Description CPT-93234 Wound Culture - LAB USE ONLY 14:00:21 CDT CPT-I/D I/D Abscess 09:16:37 CDT CPT-17959 Venipuncture Draw Fee 15:20:23 CDT CPT-05830 Microalbumin - LAB USE ONLY 16:02:19 CDT CPT-57492 CBC - LAB USE ONLY 16:02:19 CDT CPT-82905 Venipuncture Draw Fee 16:02:19 CDT CPT-G0438 Initial Annual Wellness Exam 08:10:28 CDT CPT-15247 Venipuncture Draw Fee 13:07:17 CDT CPT-G0008 Administration of Influenza Virus Vaccine 16:09:59 CDT CPT-03297 Fluzone Quadrivalent Intramuscular Suspension 0.5 ML 16: 09:59 CDT CPT-97027 Spec Collection and Handling Fee 15:05:50 CDT
--- OUTSIDE RECORDS SUMMARY | 2018-04-18 10:50 | XMS REPORT | Clinical Summary ---
Author Author Admin, E Organization [facility] Address Unknown Phone Unavailable Allergies, Adverse Reactions, [...] unspecified Back pain, thoracic region 724.1 Active Robibe Busby MD Pain in thoracic spine Preventive health care V70.0 Active Gali Negro Routine general medical examination at a health care facility Medication List Medication Instructions Start Date Stop Date Generic Name NDC Status Provider Patient Instruction CYCLOBENZAPRINE HCL 10 MG TABS 1 tablet by mouth three times daily as needed for muscle spasm/pain for 10 days CYCLOBENZAPRINE HCL 21457999942 Active Erin Garsia APRN Active PREDNISONE 20 MG TAB take 3 tabs daily for 3 days, 2 tabs daily for 3 days, 1 tab daily for 3 days, 1/2 tab daily for 4 days PREDNISONE 26788773820 No Longer Active Erin Garsia APRN Active CLONIDINE HCL 0.2 MG ORAL TABS 1 TAB BY MOUTH EVERY 8 HOURS 12/29 CLONIDINE HCL 07893980194 No Longer Active Erin Garsia APRN Active MECLIZINE HCL 25 MG TAB one 4 times a day as needed for dizziness MECLIZINE HCL 95772022996 No Longer Active Erin Garsia APRN Active SPIRONOLACTONE 25 MG TAB 4 tablets by mouth daily SPIRONOLACTONE 12110012362 No Longer Active Erin Garsia APRN Active LEVAQUIN 500 MG TAB 1 tablet by mouth daily for 7 days LEVOFLOXACIN 82623690213 No Longer Active Erin Garsia APRN Active BACTRIM DS 800-160 MG TAB 1 tab by mouth twice daily TRIMETHOPRIM-SULFAMETHOXAZOLE 40932866094 No Longer Active Robbie Bsuby MD Active HYDRALAZINE HCL 50 MG ORAL TABS TWO BY MOUTH THREE TIMES DAILY HYDRALAZINE HCL 94995850464 No Longer Active 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 Active HYDROCODONE-ACETAMINOPHEN 5-325 MG TABS 1 tab by mouth BID prn back pain 2013 HYDROCODONE-ACETAMINOPHEN 90886906672 No Longer Active 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 [employer]AL 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 Active HYDROCHLOROTHIAZIDE TABS Take one by mouth daily HYDROCHLOROTHIAZIDE TABS 11765220729 No Longer Active 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 Active LAMISIL 125 MG ORAL PACK 1 TAB PO DAILY TERBINAFINE HCL 73009770178 No Longer Active 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 GENERAL 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 Active TRILEPTAL 150 MG ORAL TABS 1 TAB PO Q HS OXCARBAZEPINE 19965526586 No Longer Active 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 [employer]AL 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 Active BETADINE 10 % EXT SOLN 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 POVIDONE-IODINE 96844053199 No Longer Active 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 [employer]AL 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 Active NYSTATIN 629027 UNIT/ML M/T SUSP 5mL po QID x 10 days NYSTATIN 11386232781 No Longer Active Erin Garsia APRN Active PREDNISONE 20 MG TAB 1 tablet twice daily for 2 days, then 1 tablet once daily for 2 days PREDNISONE 94256122903 No Longer Active Robbie Busby MD Active CEFDINIR 300 MG ORAL CAPS Take 1 cap po bid x 10 days CEFDINIR 03830334862 No Longer Active Robbie Busby MD Active AMLODIPINE BESYLATE 10 MG TABS 1 tablet by mouth daily AMLODIPINE BESYLATE 84144107655 Active Robbie Busby MD Active CARVEDILOL 25 MG TABS 1 & 1/2 TAB po BID CARVEDILOL 13365047196 Active Robbie Busby MD Active VITAMIN D3 96467 UNIT CAPS 2 CAPS PO WEEKLY CHOLECALCIFEROL 13607709872 Active Erin Garsia APRN Active NEXIUM 40 MG CPDR 1 cap by mouth daily ESOMEPRAZOLE MAGNESIUM 49726745347 Active Robbie Busby MD Active PROTONIX 40 MG SOLR 1 po qday for acid reflux PANTOPRAZOLE SODIUM 04819431054 No Longer Active Gali Raida Active KEFLEX 500 MG CAP 1 po TID x 10 days CEPHALEXIN 23996935621 No Longer Active Robbie Busby MD Active FIORICET 50-300-40 MG ORAL CAPS take 1 tab po qday prn migraines. [id number] 34617728196 Active Robbie Busby MD Active TOPIRAMATE 50 MG ORAL TABS take 1 tab po BID for migraines. TOPIRAMATE 46127545631 Active Robbie Busby MD Active TEMAZEPAM 15 MG ORAL CAPS 1 TAB PO Q HS TEMAZEPAM 18567813269 Active Robbie Busby MD Active ALPRAZOLAM 2 MG ORAL TABS 1 TAB PO BID ALPRAZOLAM 71733468972 Active Robbie Busby MD Active FENOFIBRATE 145 MG TABS Take one by mouth daily FENOFIBRATE 42638206142 No Longer Active Robbie Busby MD Active SPIRONOLACTONE 50 MG TABS 1 tablet by mouth twice a day SPIRONOLACTONE 93893729425 No Longer Active Robbie Busby MD Active HYDRALAZINE HCL 25 MG TABS 1 tablet by mouth tid for hypertension HYDRALAZINE HCL 73881869826 No Longer Active Robbie Busby MD Active VIIBRYD 40 MG TABS take 1 tab po qday for depression. VILAZODONE HCL 20873358762 No Longer Active Robbie Busby MD Active TERBINAFINE HCL 250 MG TABS 1 tab po qday for foot infection 2014 TERBINAFINE HCL 24798581203 No Longer Active Robbie Busby MD Active GABAPENTIN 300 MG CAPS 1 po q hs for nerve pain GABAPENTIN 66863199408 Active Robbie Busby MD Active FLONASE 50 MCG/ACT SUSP 1 spray each nostril twice daily for allergies and runny nose FLUTICASONE PROPIONATE 12219005264 Active Robbie Busby MD Active CHERATUSSIN AC 100-10 MG/5ML ORAL SOLN 7.5 mL PO q 4-6 hrs PRN cough GUAIFENESIN-CODEINE 61954335061 No Longer Active Robbie Busby MD Active AZITHROMYCIN 250 MG ORAL TABS 2 tablets PO today---then, 1 tablet PO daily x 4 more days (and 1 optional refill) AZITHROMYCIN 17601030586 No Longer Active Robbie Busby MD Active NORVASC 10 MG TAB 1 tablet by mouth daily AMLODIPINE BESYLATE 94379182993 No Longer Active Alex ALVAREZ Active IMDUR 60 MG TAB CR take 1 tab po qday for blood pressure ISOSORBIDE MONONITRATE Active Robbie Busby MD Active ISOSORBIDE DINITRATE 30 MG TABS Take one by mouth daily ISOSORBIDE DINITRATE 79124756531 No Longer Active Robbie Busby MD Active VIIBRYD 40 MG TABS 1 TA B PO DAILY VILAZODONE HCL 28007142029 Active Robbie Busby MD Active LORATADINE 10 MG TABS 1 tablet by mouth daily for congestion and allergies. LORATADINE 22566054875 Active Robbie Busby MD Active ZITHROMAX 250 MG TAB 2 po today, then 1 po q days 2-5 AZITHROMYCIN 66352709304 No Longer Active Robbie Busby MD Active [id number] 0.3 MG/24HR PTWK apply 2 patches q week for HTN CLONIDINE HCL 96590933867 Active Robbie Busby MD Active NITROSTAT 0.4 MG SUBL PRN NITROGLYCERIN 85969371798 Active Robbie Busby MD Active DOXAZOSIN MESYLATE 4 MG TABS Take one by mouth daily DOXAZOSIN MESYLATE 52882611141 Active Robbie Busby MD Active TOPROL XL 200 MG [id number] Take one by mouth daily METOPROLOL SUCCINATE 17292950554 Active Robbie Busby MD Active VENLAFAXINE HCL ER 150 MG [id number] Take one by mouth daily VENLAFAXINE HCL 41125930680 Active Robbie Busby MD Active LIPITOR 40 MG TABS Take one by mouth daily ATORVASTATIN CALCIUM 54342692261 Active Robbie Busby MD Active ISOSORBIDE DINITRATE 30 MG TABS Take one by mouth daily ISOSORBIDE DINITRATE 30 MG TABS 466341 ISOSORBIDE DINITRATE Inactive NORVASC 10 MG TAB 1 tablet by mouth daily NORVASC 10 MG TAB 744530 AMLODIPINE BESYLATE Inactive AZITHROMYCIN 250 MG ORAL TABS 2 tablets PO today---then, 1 tablet PO daily x 4 more days (and 1 optional refill) AZITHROMYCIN 250 MG ORAL TABS 2736407 AZITHROMYCIN Inactive CHERATUSSIN AC 100-10 MG/5ML ORAL SOLN 7.5 mL PO q 4-6 hrs PRN cough CHERATUSSIN AC 100-10 MG/5ML ORAL SOLN 808712 GUAIFENESIN- CODEINE Inactive VIIBRYD 40 MG TABS take 1 tab po qday for depression. VIIBRYD 40 MG TABS VILAZODONE HCL Inactive HYDRALAZINE HCL 25 MG TABS 1 tablet by mouth tid for hypertension HYDRALAZINE HCL 25 MG TABS 232538 HYDRALAZINE HCL Inactive SPIRONOLACTONE 50 MG TABS 1 tablet by mouth twice a day SPIRONOLACTONE 50 MG TABS 456341 SPIRONOLACTONE Inactive FENOFIBRATE 145 MG TABS Take one by mouth daily FENOFIBRATE 145 MG TABS 787400 FENOFIBRATE Inactive PROTONIX 40 MG SOLR 1 po qday for acid reflux PROTONIX 40 MG SOLR 347953 PANTOPRAZOLE SODIUM Inactive CEFDINIR 300 MG ORAL CAPS Take 1 cap po bid x 10 days CEFDINIR 300 MG ORAL CAPS 609501 CEFDINIR Inactive PREDNISONE 20 MG TAB 1 tablet twice daily for 2 days, then 1 tablet once daily for 2 days PREDNISONE 20 MG TAB 608125 PREDNISONE Inactive NYSTATIN 275915 UNIT/ML M/T SUSP 5mL po QID x 10 days NYSTATIN 793762 UNIT/ML M/T SUSP 842704 NYSTATIN Inactive BETADINE 10 % EXT SOLN 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 BETADINE 10 % EXT SOLN 3442247 POVIDONE-IODINE Inactive TRILEPTAL 150 MG ORAL TABS 1 TAB PO Q HS TRILEPTAL 150 MG ORAL TABS 004148 OXCARBAZEPINE Inactive LAMISIL 125 MG ORAL PACK 1 TAB PO DAILY LAMISIL 125 MG ORAL PACK TERBINAFINE HCL Inactive HYDROCHLOROTHIAZIDE TABS Take one by mouth daily HYDROCHLOROTHIAZIDE TABS HYDROCHLOROTHIAZIDE TABS Inactive HYDROCODONE-ACETAMINOPHEN 5-325 MG TABS 1 tab by mouth BID prn back pain 2013 HYDROCODONE-ACETAMINOPHEN 5-325 MG TABS 961751 HYDROCODONE -ACETAMINOPHEN Inactive HYDRALAZINE HCL 50 MG ORAL TABS TWO BY MOUTH THREE TIMES DAILY HYDRALAZINE HCL 50 MG ORAL TABS 779466 HYDRALAZINE HCL Inactive LEVAQUIN 500 MG TAB 1 tablet by mouth daily for 7 days LEVAQUIN 500 MG TAB 245903 LEVOFLOXACIN Inactive SPIRONOLACTONE 25 MG TAB 4 tablets by mouth daily SPIRONOLACTONE 25 MG TAB 570994 SPIRONOLACTONE Inactive MECLIZINE HCL 25 MG TAB one 4 times a day as needed for dizziness MECLIZINE HCL 25 MG TAB 266728 MECLIZINE HCL Inactive CLONIDINE HCL 0.2 MG ORAL TABS 1 TAB BY MOUTH EVERY 8 HOURS 12/29 CLONIDINE HCL 0.2 MG ORAL TABS 929924 CLONIDINE HCL Inactive ZITHROMAX 250 MG TAB 2 po today, then 1 po q days 2-5 ZITHROMAX 250 MG TAB 7260958 AZITHROMYCIN Inactive TERBINAFINE HCL 250 MG TABS 1 tab po qday for foot infection 2014 TERBINAFINE HCL 250 MG TABS 980127 TERBINAFINE HCL Inactive KEFLEX 500 MG CAP 1 po TID x 10 days KEFLEX 500 MG CAP 134051 CEPHALEXIN Inactive BACTRIM DS 800-160 MG TAB 1 tab by mouth twice daily BACTRIM DS 800-160 MG TAB 661719 TRIMETHOPRIM-SULFAMETHOXAZOLE Inactive PREDNISONE 20 MG TAB take 3 tabs daily for 3 days, 2 tabs daily for 3 days, 1 tab daily for 3 days, 1/2 tab daily for 4 days PREDNISONE 20 MG TAB 925492 PREDNISONE Inactive Advance Directives Directive Description Start [...] % 11.6-14.8 platelet count 229 10^3/MM^3 10*3/mm3 021-123 6503/09/06 hemoglobin, blood 14.4 g/dL 13.5-17.5 erythrocyte (RBC) count 4.72 10^6/MM^3 10*6/mm3 4.69-6.13 leukocyte count, blood 9.7 10^3/MM^3 10*3/mm3 4.6-10.2 Lab Report: CBC-QUEST, COMPREHENSIVE METABOLIC PANEL - Hematology leukocyte count, blood 10.1 THOUSAND/UL 10*3/mm3 3.8-10.8 mean corpuscular hemoglobin concentration, RBC 33.1 G/DL % 32.0- 36.0 red blood cell distribution width 15.8 % 11.0-15.0 platelet count 185 THOUSAND/UL 10*3/mm3 440-404 6105/04/14 mean platelet volume 10.9 fL 7.5-12.5 erythrocyte (RBC) count 4.64 MILLION/UL 10*6/mm3 4.20-5.80 hemoglobin, blood 13.9 g/dL 13.2-17.1 hematocrit, blood 42.0 % 38.5-50.0 mean corpuscular volume, RBC 90.5 fL 80.0-100.0 mean corpuscular hemoglobin, RBC 29.9 pg 27.0-33.0 Lab Report: LIPID PANEL, TSH/899, T4, FREE/866 - Chemistry cholesterol, serum 220 mg/dL 793-742 4976/04/14 HDL cholesterol, serum 30 mg/dL > OR=40 [...] mg/dL Encounters Code Encounter Date Provider Facility CPT-62743 Level 4 Est. Patient 11:56:16 CDT Erin Garsia [facility] CPT-40954 Level 3 Est. Patient 17:48:02 CDT Robbie Busby MD [facility] CPT-32924 Level 4 Est. Patient 12:00:49 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 Rober Rodríguez [facility] CPT-41793 Level 3 Est. Patient 09:16:37 CDT Robbie Busby MD [facility] CPT-06432 Level 3 Est. Patient 19:38:43 CDT Robbie Busby MD [facility] CPT-33734 Level 3 Est. Patient 11:53:38 CDT Robbie Busby MD [facility] CPT-60131 Level 4 Est. Patient 12:52:22 CDT Rober Rodríguez [facility] CPT-93669 Level 4 Est. Patient 22:55:17 CDT Robbie Busby MD [facility] CPT-45126 Level 3 Est. Patient 12:38:24 CDT Desmond Diaz DO [facility] CPT-57315 Level 4 Est. 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 CPT-98853 Level 4 Est. Patient 14:50:10 CDT Robbie Busby MD [facility] CPT-49674 Level 4 Est. Patient 23:30:43 CDT Robbie Busby MD [facility] CPT-47823 Level 4 Est. Patient 10:30:43 CDT Robbie Busby MD [facility] CPT-02909 Level 3 Est. Patient 17:08:12 CDT Alex Shaw [facility] CPT-25376 Level 4 Est. Patient 17:51:38 CDT Robbie Busby MD [facility] CPT-93289 Level 4 Est. Patient 14:00:21 CDT Robbie Busby MD [facility] CPT-95979 Level 4 Est. Patient 12:46:48 CDT Robbie Busby MD [facility] CPT-74462 Level 4 Est. Patient 13:34:33 CDT Robbie Busby MD [facility] CPT-07789 Level 4 Est. Patient 16:58:28 CDT Robbie Busby MD [facility] CPT-90989 Level 3 Est. Patient 19:36:53 CDT Alex Shaw [facility] CPT-53885 Level 3 Est. Patient 12:58:15 CDT Robbie Busby MD 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 CPT-77503 Abx/Therapy Injection 17:43:42 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 MECHANIC CPT-08235 Abx/Therapy Injection 17:43:42 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 MECHANIC CPT-J1040 Depo Medrol 80 mg (Methyl Prednisolone Acetate) 09:43: 34 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 MECHANIC CPT-J1100 Decadron 8mg (Dexamethasone) 09:43:34 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 MECHANIC CPT-J0696 Rocephin 1gm Inj Solr 09:43:34 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 MECH[employer]IC CPT-40306 Wound Culture - LAB USE ONLY 14:00:21 CDT CPT-I/D I/D Abscess 09:16:37 CDT CPT-95011 Venipuncture Draw Fee 15:20:23 CDT CPT-29118 Microalbumin - LAB USE ONLY 16:02:19 CDT CPT-49458 CBC - LAB USE ONLY 16:02:19 CDT CPT-49144 Venipuncture Draw Fee 16:02:19 CDT CPT-G0438 Initial Annual Wellness Exam 08:10:28 CDT CPT-94506 Venipuncture Draw Fee 13:07:17 CDT CPT-G0008 Administration of Influenza Virus Vaccine 16:09:59 CDT CPT-18846 Fluzone Quadrivalent Intramuscular Suspension 0.5 ML 16: 09:59 CDT CPT-62236 Spec Collection and Handling Fee 15:05:50 CDT
--- OUTSIDE RECORDS SUMMARY | 2018-04-18 10:51 | XMS REPORT | Clinical Summary ---
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 OXYCODONE HCL 56046527288 Active Robbie Busby MD Active NITROSTAT 0.4 MG SUBL PRN NITROGLYCERIN 04828728271 No Longer Active Robbie Busby MD Active LORATADINE 10 MG TABS 1 tablet by mouth daily for congestion and allergies. LORATADINE 87252497177 No Longer Active Robbie Busby MD Active FLONASE 50 MCG/ACT SUSP 1 spray each nostril twice daily for allergies and runny nose FLUTICASONE PROPIONATE 39050569420 No Longer Active Robbie Busby MD Active FIORICET 50-300-40 MG ORAL CAPS take 1 tab po qday prn migraines. [id number] 55446213825 No Longer Active Robbie Busby MD Active VITAMIN D3 43429 UNIT CAPS 2 CAPS PO WEEKLY CHOLECALCIFEROL 65190684490 No Longer Active Robbie Busby MD Active CYCLOBENZAPRINE HCL 10 MG TABS 1 tablet by mouth three times daily as needed for muscle spasm/pain for 10 days CYCLOBENZAPRINE HCL 03180467195 No Longer Active Robbie Busby MD Active PREDNISONE 20 MG TAB take 3 tabs daily for 3 days, 2 tabs daily for 3 days, 1 tab daily for 3 days, 1/2 tab daily for 4 days PREDNISONE 15549106761 No Longer Active Erin Garsia APRN Active CLONIDINE HCL 0.2 MG ORAL TABS 1 TAB BY MOUTH EVERY 8 HOURS 12/29 CLONIDINE HCL 12088182683 No Longer Active Erin Garsia APRN Active MECLIZINE HCL 25 MG TAB one 4 times a day as needed for dizziness MECLIZINE HCL 58403368686 No Longer Active Erin Garsia APRN Active SPIRONOLACTONE 25 MG TAB 4 tablets by mouth daily SPIRONOLACTONE 19130491268 No Longer Active Erin Garsia APRN Active LEVAQUIN 500 MG TAB 1 tablet by mouth daily for 7 days LEVOFLOXACIN 63726876653 No Longer Active Erin Garsia APRN Active BACTRIM DS 800-160 MG TAB 1 tab by mouth twice daily TRIMETHOPRIM-SULFAMETHOXAZOLE 22628328478 No Longer Active Robbie Busby MD Active HYDRALAZINE HCL 50 MG ORAL TABS TWO BY MOUTH THREE TIMES DAILY HYDRALAZINE HCL 39057012229 No Longer Active Rober Rodríguez APRN Active HYDROCODONE-ACETAMINOPHEN 5-325 MG TABS 1 tab by mouth BID prn back pain 2013 HYDROCODONE-ACETAMINOPHEN 95502724999 No Longer Active Rober Rodríguez APRN Active HYDROCHLOROTHIAZIDE TABS Take one by mouth daily HYDROCHLOROTHIAZIDE TABS 48547335425 No Longer Active Rober Rodríguez APRN Active LAMISIL 125 MG ORAL PACK 1 TAB PO DAILY TERBINAFINE HCL 00152122431 No Longer Active Jillina Franeha [employer]ING [employer] ESTIMATOR Active TRILEPTAL 150 MG ORAL TABS 1 TAB PO Q HS OXCARBAZEPINE 65845826849 No Longer Active 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 [employer]ING [employer]ST ESTIMATOR Active BETADINE 10 % EXT SOLN 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 POVIDONE-IODINE 49377552158 No Longer Active 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 [employer]ING [employer]ST ESTIMATOR Active NYSTATIN 822436 UNIT/ML M/T SUSP 5mL po QID x 10 days NYSTATIN 14280166194 No Longer Active Erin Garsia APRN Active PREDNISONE 20 MG TAB 1 tablet twice daily for 2 days, then 1 tablet once daily for 2 days PREDNISONE 52318424721 No Longer Active Robbie Busby MD Active CEFDINIR 300 MG ORAL CAPS Take 1 cap po bid x 10 days CEFDINIR 21862016865 No Longer Active Robbie Busby MD Active AMLODIPINE BESYLATE 10 MG TABS 1 tablet by mouth daily AMLODIPINE BESYLATE 64207708808 Active Robbie Busby MD Active CARVEDILOL 25 MG TABS 1 & 1/2 TAB po BID CARVEDILOL 32813056853 Active Robbie Busby MD Active NEXIUM 40 MG CPDR 1 cap by mouth daily ESOMEPRAZOLE MAGNESIUM 68929798700 Active Robbie Busby MD Active PROTONIX 40 MG SOLR 1 po qday for acid reflux PANTOPRAZOLE SODIUM 95540163582 No Longer Active Gali Raida Active KEFLEX 500 MG CAP 1 po TID x 10 days CEPHALEXIN 71141153098 No Longer Active Robbie Busby MD Active TOPIRAMATE 50 MG ORAL TABS take 1 tab po BID for migraines. TOPIRAMATE 70930908187 Active Robbie Busby MD Active TEMAZEPAM 15 MG ORAL CAPS 1 TAB PO Q HS TEMAZEPAM 28429398451 Active Robbie Busby MD Active ALPRAZOLAM 2 MG ORAL TABS 1 TAB PO BID ALPRAZOLAM 23763271738 Active Robbie Busby MD Active FENOFIBRATE 145 MG TABS Take one by mouth daily FENOFIBRATE 99532947768 No Longer Active Robbie Busby MD Active SPIRONOLACTONE 50 MG TABS 1 tablet by mouth twice a day SPIRONOLACTONE 72073992420 No Longer Active Robbie Busby MD Active HYDRALAZINE HCL 25 MG TABS 1 tablet by mouth tid for hypertension HYDRALAZINE HCL 20086108123 No Longer Active Robbie Busby MD Active VIIBRYD 40 MG TABS take 1 tab po qday for depression. VILAZODONE HCL 67094019513 No Longer Active Robbie Busby MD Active TERBINAFINE HCL 250 MG TABS 1 tab po qday for foot infection 2014 TERBINAFINE HCL 76342596698 No Longer Active Robbie Busby MD Active GABAPENTIN 300 MG CAPS 1 po q hs for nerve pain GABAPENTIN 47786832889 Active Robbie Busby MD Active CHERATUSSIN AC 100-10 MG/5ML ORAL SOLN 7.5 mL PO q 4-6 hrs PRN cough GUAIFENESIN-CODEINE 37748116306 No Longer Active Robbie Busby MD Active AZITHROMYCIN 250 MG ORAL TABS 2 tablets PO today---then, 1 tablet PO daily x 4 more days (and 1 optional refill) AZITHROMYCIN 23519531208 No Longer Active Robbie Busby MD Active NORVASC 10 MG TAB 1 tablet by mouth daily AMLODIPINE BESYLATE 69519122597 No Longer Active Alex ALVAREZ Active IMDUR 60 MG TAB CR take 1 tab po qday for blood pressure ISOSORBIDE MONONITRATE Active Robbie Busby MD Active ISOSORBIDE DINITRATE 30 MG TABS Take one by mouth daily ISOSORBIDE DINITRATE 93150435843 No Longer Active Robbie Busby MD Active VIIBRYD 40 MG TABS 1 TA B PO DAILY VILAZODONE HCL 96172798271 Active Robbie Busby MD Active ZITHROMAX 250 MG TAB 2 po today, then 1 po q days 2-5 AZITHROMYCIN 60556914222 No Longer Active Robbie Busby MD Active VNYOBVCP-LWF-1 0.3 MG/24HR PTWK apply 2 patches q week for HTN CLONIDINE HCL 06196453962 Active Robbie Busby MD Active DOXAZOSIN MESYLATE 4 MG TABS Take one by mouth daily DOXAZOSIN MESYLATE 30483970577 Active Robbie Busby MD Active TOPROL XL 200 MG CO74O-HYQ Take one by mouth daily METOPROLOL SUCCINATE 64341130315 Active Robbie Busby MD Active VENLAFAXINE HCL ER 150 MG QF15M-TML Take one by mouth daily VENLAFAXINE HCL 54099800461 Active Robbie Busby MD Active LIPITOR 40 MG TABS Take one by mouth daily ATORVASTATIN CALCIUM 39855806321 Active Robbie Busby MD Active ISOSORBIDE DINITRATE 30 MG TABS Take one by mouth daily ISOSORBIDE DINITRATE 30 MG TABS 289906 ISOSORBIDE DINITRATE Inactive NORVASC 10 MG TAB 1 tablet by mouth daily NORVASC 10 MG TAB 837987 AMLODIPINE BESYLATE Inactive AZITHROMYCIN 250 MG ORAL TABS 2 tablets PO today---then, 1 tablet PO daily x 4 more days (and 1 optional refill) AZITHROMYCIN 250 MG ORAL TABS 9703761 AZITHROMYCIN Inactive CHERATUSSIN AC 100-10 MG/5ML ORAL SOLN 7.5 mL PO q 4-6 hrs PRN cough CHERATUSSIN AC 100-10 MG/5ML ORAL SOLN 010519 GUAIFENESIN- CODEINE Inactive VIIBRYD 40 MG TABS take 1 tab po qday for depression. VIIBRYD 40 MG TABS VILAZODONE HCL Inactive HYDRALAZINE HCL 25 MG TABS 1 tablet by mouth tid for hypertension HYDRALAZINE HCL 25 MG TABS 016293 HYDRALAZINE HCL Inactive SPIRONOLACTONE 50 MG TABS 1 tablet by mouth twice a day SPIRONOLACTONE 50 MG TABS 073151 SPIRONOLACTONE Inactive FENOFIBRATE 145 MG TABS Take one by mouth daily FENOFIBRATE 145 MG TABS 325411 FENOFIBRATE Inactive PROTONIX 40 MG SOLR 1 po qday for acid reflux PROTONIX 40 MG SOLR 956253 PANTOPRAZOLE SODIUM Inactive CEFDINIR 300 MG ORAL CAPS Take 1 cap po bid x 10 days CEFDINIR 300 MG ORAL CAPS 791800 CEFDINIR Inactive PREDNISONE 20 MG TAB 1 tablet twice daily for 2 days, then 1 tablet once daily for 2 days PREDNISONE 20 MG TAB 767134 PREDNISONE Inactive NYSTATIN 508649 UNIT/ML M/T SUSP 5mL po QID x 10 days NYSTATIN 642422 UNIT/ML M/T SUSP 056584 NYSTATIN Inactive BETADINE 10 % EXT SOLN 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 BETADINE 10 % EXT SOLN 8750166 POVIDONE-IODINE Inactive TRILEPTAL 150 MG ORAL TABS 1 TAB PO Q HS TRILEPTAL 150 MG ORAL TABS 756949 OXCARBAZEPINE Inactive LAMISIL 125 MG ORAL PACK 1 TAB PO DAILY LAMISIL 125 MG ORAL PACK TERBINAFINE HCL Inactive HYDROCHLOROTHIAZIDE TABS Take one by mouth daily HYDROCHLOROTHIAZIDE TABS HYDROCHLOROTHIAZIDE TABS Inactive HYDROCODONE-ACETAMINOPHEN 5-325 MG TABS 1 tab by mouth BID prn back pain 2013 HYDROCODONE-ACETAMINOPHEN 5-325 MG TABS 434252 HYDROCODONE -ACETAMINOPHEN Inactive HYDRALAZINE HCL 50 MG ORAL TABS TWO BY MOUTH THREE TIMES DAILY HYDRALAZINE HCL 50 MG ORAL TABS 741220 HYDRALAZINE HCL Inactive LEVAQUIN 500 MG TAB 1 tablet by mouth daily for 7 days LEVAQUIN 500 MG TAB 230078 LEVOFLOXACIN Inactive SPIRONOLACTONE 25 MG TAB 4 tablets by mouth daily SPIRONOLACTONE 25 MG TAB 383744 SPIRONOLACTONE Inactive MECLIZINE HCL 25 MG TAB one 4 times a day as needed for dizziness MECLIZINE HCL 25 MG TAB 185940 MECLIZINE HCL Inactive CLONIDINE HCL 0.2 MG ORAL TABS 1 TAB BY MOUTH EVERY 8 HOURS 12/29 CLONIDINE HCL 0.2 MG ORAL TABS 052252 CLONIDINE HCL Inactive CYCLOBENZAPRINE HCL 10 MG TABS 1 tablet by mouth three times daily as needed for muscle spasm/pain for 10 days CYCLOBENZAPRINE HCL 10 MG TABS 022829 CYCLOBENZAPRINE HCL Inactive VITAMIN D3 97649 UNIT CAPS 2 CAPS PO WEEKLY VITAMIN D3 65034 UNIT CAPS CHOLECALCIFEROL Inactive FIORICET 50-300-40 MG ORAL CAPS take 1 tab po qday prn migraines. FIORICET 50-300-40 MG ORAL CAPS 300601 [id number] Inactive FLONASE 50 MCG/ACT SUSP 1 spray each nostril twice daily for allergies and runny nose FLONASE 50 MCG/ACT SUSP 8004816 FLUTICASONE PROPIONATE Inactive LORATADINE 10 MG TABS 1 tablet by mouth daily for congestion and allergies. LORATADINE 10 MG TABS 967202 LORATADINE Inactive NITROSTAT 0.4 MG SUBL PRN NITROSTAT 0.4 MG SUBL 126473 NITROGLYCERIN Inactive ZITHROMAX 250 MG TAB 2 po today, then 1 po q days 2-5 ZITHROMAX 250 MG TAB 2463884 AZITHROMYCIN Inactive TERBINAFINE HCL 250 MG TABS 1 tab po qday for foot infection 2014 TERBINAFINE HCL 250 MG TABS 585527 TERBINAFINE HCL Inactive KEFLEX 500 MG CAP 1 po TID x 10 days KEFLEX 500 MG CAP 595245 CEPHALEXIN Inactive BACTRIM DS 800-160 MG TAB 1 tab by mouth twice daily BACTRIM DS 800-160 MG TAB 058894 TRIMETHOPRIM-SULFAMETHOXAZOLE Inactive PREDNISONE 20 MG TAB take 3 tabs daily for 3 days, 2 tabs daily for 3 days, 1 tab daily for 3 days, 1/2 tab daily for 4 days PREDNISONE 20 MG TAB 370701 PREDNISONE Inactive Advance Directives Directive Description Start [...] % 11.0-15.0 platelet count 185 THOUSAND/UL 10*3/mm3 804-461 8245/04/14 mean platelet volume 10.9 fL 7.5-12.5 Lab Report: LIPID PANEL, TSH/899, T4, FREE/866 - Chemistry cholesterol, serum 220 mg/dL 078-984 1236/04/14 HDL cholesterol, serum 30 mg/dL > OR=40 [...] mg/dL Encounters Code Encounter Date Provider Facility CPT-26143 Level 3 Est. Patient 16:07:10 CDT Robbie Busby MD [facility] CPT-68252 Level 4 Est. Patient 11:56:16 CDT Erin Garsia [facility] CPT-12376 Level 3 Est. Patient 17:48:02 CDT Robbie Busby MD [facility] CPT-90014 Level 4 Est. 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 Patient 09:16:37 CDT Robbie Busby MD [facility] CPT-37839 Level 3 Est. Patient 19:38:43 CDT Robbie Busby MD [facility] CPT-68287 Level 3 Est. Patient 11:53:38 CDT Robbie Busby MD [facility] CPT-55113 Level 4 Est. Patient 12:52:22 CDT Rober Rodríguez [facility] CPT-73880 Level 4 Est. Patient 22:55:17 CDT Robbie Busby MD [facility] CPT-99530 Level 3 Est. Patient 12:38:24 CDT Desmond Diaz DO [facility] CPT-54001 Level 4 Est. 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 Patient 14:50:10 CDT Robbie Busby MD [facility] CPT-86635 Level 4 Est. Patient 23:30:43 CDT Robbie Busby MD [facility] CPT-04201 Level 4 Est. Patient 10:30:43 CDT Robbie Busby MD [facility] CPT-31966 Level 3 Est. Patient 17:08:12 CDT Alex Shaw [facility] CPT-72417 Level 4 Est. Patient 17:51:38 CDT Robbie Busby MD [facility] CPT-48043 Level 4 Est. Patient 14:00:21 CDT Robbie Busby MD [facility] CPT-70672 Level 4 Est. Patient 12:46:48 CDT Robbie Busby MD [facility] CPT-98679 Level 4 Est. Patient 13:34:33 CDT Robbie Busby MD [facility] CPT-19616 Level 4 Est. Patient 16:58:28 CDT Robbie Busby MD [facility] CPT-34975 Level 3 Est. Patient 19:36:53 CDT Alex Shaw [facility] CPT-79148 Level 3 Est. Patient 12:58:15 CDT Robbie Busby MD [facility] Procedures Code Procedure Name Date Entry Date Standard Description CPT-78724 Ribs unilateral 2V - XRAY USE ONLY 12:10:11 CDT CPT-96934 First Vx - Ix admin for Medicare patients 16:32:53 CDT CPT-74567 Boostrix Intramuscular Suspension 5-2.5-18.5 16:32:53 CDT CPT-89285 TB Skin Test 11:42:28 CDT CPT-92926 Tdap 7yrs or > 11:42:28 CDT CPT-J0696 Rocephin 1000 mg (Ceftriaxone) 17:43:43 LOAD DISPATCHER LOCAL CPT-J1040 Depo Medrol 80 mg (Methyl Prednisolone Acetate) 17:43: 43 LOAD DISPATCHER LOCAL CPT-J1100 Decadron 8mg (Dexamethasone) 17:43:42 LOAD DISPATCHER LOCAL CPT-04167 Abx/Therapy Injection 17:43:42 LOAD DISPATCHER LOCAL CPT-29772 Abx/Therapy Injection 17:43:42 LOAD DISPATCHER LOCAL CPT-J1040 Depo Medrol 80 mg (Methyl Prednisolone Acetate) 09:43: 34 LOAD DISPATCHER LOCAL CPT-J1100 Decadron 8mg (Dexamethasone) 09:43:34 LOAD DISPATCHER LOCAL CPT-J0696 Rocephin 1gm Inj Solr 09:43:34 LOAD DISPATCHER LOCAL CPT-74665 Wound Culture - LAB USE ONLY 14:00:21 CDT CPT-I/D I/D Abscess 09:16:37 CDT CPT-08296 Venipuncture Draw Fee 15:20:23 CDT CPT-45092 Microalbumin - LAB USE ONLY 16:02:19 CDT CPT-88270 CBC - LAB USE ONLY 16:02:19 CDT CPT-48895 Venipuncture Draw Fee 16:02:19 CDT CPT-G0438 Initial Annual Wellness Exam 08:10:28 CDT CPT-02084 Venipuncture Draw Fee 13:07:17 CDT CPT-G0008 Administration of Influenza Virus Vaccine 16:09:59 CDT CPT-27656 Fluzone Quadrivalent Intramuscular Suspension 0.5 ML 16: 09:59 CDT CPT-63544 Spec Collection and Handling Fee 15:05:50 CDT
--- OUTSIDE RECORDS SUMMARY | 2018-04-18 10:52 | XMS REPORT | Clinical Summary ---
Author Author Admin, AKUA Organization [employer] Address Unknown Phone Unavailable Allergies, Adverse Reactions, [...] Dizziness and giddiness Folliculitis 704.8 Active Robbie Busyb MD Other specified diseases of hair and [...] unspecified sites URI 465.9 Active Rober Rodríguez [employer] Acute upper respiratory infections of unspecified site [...] pain, chronic 724.2 Active Robbie Busby MD [facility] Medication List Medication Instructions Start Date Stop Date Generic Name NDC Status Provider Patient Instruction GUAIFENESIN ER 600 MG ORAL TABLET EXTENDED RELEASE 12 HOUR 1 tab po q am 2016 GUAIFENESIN [id number] No Longer Active Robbie Busby MD Active DIVALPROEX SODIUM ER 500 MG ORAL TABLET EXTENDED RELEASE 24 HOUR Once daily DIVALPROEX SODIUM 58320890953 Active Robbie Busby MD Active DEPO-TESTOSTERONE 200 MG/ML INTRAMUSCULAR SOLUTION 1 IM Injections every 2 weeks for low testosterone TESTOSTERONE CYPIONATE 18889540255 Active Zulema Blank LPN Active CYCLOBENZAPRINE HCL 10 MG ORAL TABLET 1 po TID PRN muscle spasm/pain for 10 days CYCLOBENZAPRINE HCL 01666695423 Active JONATHAN Moncada Active FLUTICASONE PROPIONATE 50 MCG/ACT NASAL SUSPENSION 2 sprays per nostril bid for 1 week, then 1 spray bid FLUTICASONE PROPIONATE 51231696025 Active Rober Rodríguez [employer] Active HYDRALAZINE HCL 25 MG ORAL TABLET Take 1 tab BID. HYDRALAZINE HCL 73047401815 Active Rober Rodríguez APRN Active VITAMIN D3 36397 UNIT ORAL TABLET 2 po weekly CHOLECALCIFEROL 64680956731 Active Robbie Busby MD Active OXYCODONE HCL ER 10 MG ORAL TABLET ER 12 HOUR ABUSE-DETERRENT 1 tab po 3 times qd. OXYCODONE HCL 71407452721 Active Robbie Busby MD Active NITROSTAT 0.4 MG SUBLINGUAL TABLET SUBLINGUAL PRN NITROGLYCERIN 50556091916 No Longer Active Robbie Busby MD Active LORATADINE 10 MG ORAL TABLET 1 tablet by mouth daily for congestion and allergies. LORATADINE 42494387398 No Longer Active Robbie Busby MD Active FLONASE 50 MCG/ACT NASAL SUSPENSION 1 spray each nostril twice daily for allergies and runny nose FLUTICASONE PROPIONATE 74030569647 No Longer Active Robbie Busby MD Active FIORICET 50-300-40 MG ORAL CAPSULE take 1 tab po qday prn migraines. [id number] 72304500078 No Longer Active Robbie Busby MD Active VITAMIN D3 24206 UNIT ORAL CAPSULE 2 CAPS PO WEEKLY CHOLECALCIFEROL 76172886523 No Longer Active Robbie Busby MD Active CYCLOBENZAPRINE HCL 10 MG ORAL TABLET 1 tablet by mouth three times daily as needed for muscle spasm/pain for 10 days CYCLOBENZAPRINE HCL 95158702851 No Longer Active Robbie Busby MD Active PREDNISONE 20 MG ORAL TABLET take 3 tabs daily for 3 days, 2 tabs daily for 3 days, 1 tab daily for 3 days, 1/2 tab daily for 4 days PREDNISONE 94758532757 No Longer Active Erin Garsia APRN Active CLONIDINE HCL 0.2 MG ORAL TABLET 1 TAB BY MOUTH EVERY 8 HOURS CLONIDINE HCL 05166831630 No Longer Active Erin Garsia APRN Active MECLIZINE HCL 25 MG ORAL TABLET one 4 times a day as needed for dizziness MECLIZINE HCL 97718340064 No Longer Active Erin Garsia APRN Active SPIRONOLACTONE 25 MG ORAL TABLET 4 tablets by mouth daily SPIRONOLACTONE 46213014200 No Longer Active Erin Garsia APRN Active LEVAQUIN 500 MG ORAL TABLET 1 tablet by mouth daily for 7 days LEVOFLOXACIN 85897987278 No Longer Active Erin Garsia APRN Active BACTRIM DS 800-160 MG ORAL TABLET 1 tab by mouth twice daily 2015 TRIMETHOPRIM-SULFAMETHOXAZOLE 32907095894 No Longer Active Robbie Busby MD Active HYDRALAZINE HCL 50 MG ORAL TABLET TWO BY MOUTH THREE TIMES DAILY HYDRALAZINE HCL 87183725152 No Longer Active Rober Rodríguez APRN Active HYDROCODONE-ACETAMINOPHEN 5-325 MG ORAL TABLET 1 tab by mouth BID prn back pain HYDROCODONE-ACETAMINOPHEN 47365150533 No Longer Active Jillld Rodríguez APRN Active HYDROCHLOROTHIAZIDE TABLET Take one by mouth daily HYDROCHLOROTHIAZIDE TABS 70014652869 No Longer Active Andrellld Rodríguez APRN Active LAMISIL 125 MG ORAL PACKET 1 TAB PO DAILY TERBINAFINE HCL 75058601970 No Longer Active Andrellld Rodríguez APRN Active TRILEPTAL 150 MG ORAL TABLET 1 TAB PO Q HS OXCARBAZEPINE 59093999771 No Longer Active Rober Rodríguez APRN Active BETADINE 10 % EXTERNAL SOLUTION 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 07/29 POVIDONE-IODINE 72223285820 No Longer Active Rober Rodríguez APRN Active NYSTATIN 663910 UNIT/ML MOUTH/THROAT SUSPENSION 5mL po QID x 10 days NYSTATIN 66785289825 No Longer Active Erin Garsia APRN Active PREDNISONE 20 MG ORAL TABLET 1 tablet twice daily for 2 days, then 1 tablet once daily for 2 days PREDNISONE 32515352170 No Longer Active Robbie Busby MD Active CEFDINIR 300 MG ORAL CAPSULE Take 1 cap po bid x 10 days CEFDINIR 89971771696 No Longer Active Robbie Busby MD Active AMLODIPINE BESYLATE 10 MG ORAL TABLET 1 tablet by mouth daily AMLODIPINE BESYLATE 47007011728 Active Robbie Busby MD Active CARVEDILOL 25 MG ORAL TABLET 1 & 1/2 TAB po BID CARVEDILOL 93684402486 Active Robbie Busby MD Active NEXIUM 40 MG ORAL CAPSULE DELAYED RELEASE 1 cap by mouth daily ESOMEPRAZOLE MAGNESIUM 77713905060 Active Robbie Busby MD Active PROTONIX 40 MG INTRAVENOUS SOLUTION RECONSTITUTED 1 po qday for acid reflux PANTOPRAZOLE SODIUM 41233223014 No Longer Active Gali Raida Active KEFLEX 500 MG ORAL CAPSULE 1 po TID x 10 days CEPHALEXIN 70189753363 No Longer Active Robbie Busby MD Active TOPIRAMATE 50 MG ORAL TABLET take 1 tab po BID for migraines. TOPIRAMATE 83764551751 Active Robbie Busby MD Active TEMAZEPAM 15 MG ORAL CAPSULE 1 TAB PO Q HS TEMAZEPAM 12081795815 Active Robbie Busby MD Active ALPRAZOLAM 2 MG ORAL TABLET 1 TAB PO BID ALPRAZOLAM 07304124015 Active Robbie Busby MD Active FENOFIBRATE 145 MG ORAL TABLET Take one by mouth daily FENOFIBRATE 37667799112 No Longer Active Robbie Busby MD Active SPIRONOLACTONE 50 MG ORAL TABLET 1 tablet by mouth twice a day SPIRONOLACTONE 17606139497 No Longer Active Robbie Busby MD Active HYDRALAZINE HCL 25 MG ORAL TABLET 1 tablet by mouth tid for hypertension 2013 HYDRALAZINE HCL 14640166890 No Longer Active Robbie Busby MD Active VIIBRYD 40 MG ORAL TABLET take 1 tab po qday for depression. 2014 VILAZODONE HCL 84353760793 No Longer Active Robbie Busby MD Active TERBINAFINE HCL 250 MG ORAL TABLET 1 tab po qday for foot infection TERBINAFINE HCL 68546074576 No Longer Active Robbie Busby MD Active GABAPENTIN 300 MG ORAL CAPSULE 1 po q hs for nerve pain GABAPENTIN 87758324798 Active Robbie Busby MD Active CHERATUSSIN AC 100-10 MG/5ML ORAL SOLUTION 7.5 mL PO q 4-6 hrs PRN cough 2014 GUAIFENESIN-CODEINE 36978513099 No Longer Active Robbie Busby MD Active AZITHROMYCIN 250 MG ORAL TABLET 2 tablets PO today---then, 1 tablet PO daily x 4 more days (and 1 optional refill) AZITHROMYCIN 63190683252 No Longer Active Robbie Busby MD Active NORVASC 10 MG ORAL TABLET 1 tablet by mouth daily AMLODIPINE BESYLATE 80274388339 No Longer Active Alex ALVAREZ Active IMDUR 60 MG ORAL TABLET EXTENDED RELEASE 24 HOUR take 1 tab po qday for blood pressure ISOSORBIDE MONONITRATE 75425547908 Active Robbie Busby MD Active ISOSORBIDE DINITRATE 30 MG ORAL TABLET Take one by mouth daily ISOSORBIDE DINITRATE 40922347001 No Longer Active Robbie Busby MD Active VIIBRYD 40 MG ORAL TABLET 1 TA B PO DAILY VILAZODONE HCL 57520028259 Active Robbie Busby MD Active ZITHROMAX 250 MG ORAL TABLET 2 po today, then 1 po q days 2-5 AZITHROMYCIN 52998124858 No Longer Active Robbie Busby MD Active DMFHMPII-CCU-1 0.3 MG/24HR TRANSDERMAL PATCH WEEKLY apply 2 patches q week for HTN CLONIDINE HCL 95016890101 Active Robbie Busby MD Active DOXAZOSIN MESYLATE 4 MG ORAL TABLET Take one by mouth daily DOXAZOSIN MESYLATE 61490778437 Active Robbie Busby MD Active TOPROL XL 200 MG ORAL TABLET EXTENDED RELEASE 24 HOUR Take one by mouth daily METOPROLOL SUCCINATE 34996965884 Active Robbie Busby MD Active VENLAFAXINE HCL ER 150 MG ORAL TABLET EXTENDED RELEASE 24 HOUR Take one by mouth daily VENLAFAXINE HCL 67410861663 Active Robbie Busby MD Active LIPITOR 40 MG ORAL TABLET Take one by mouth daily ATORVASTATIN CALCIUM 12794642952 Active Robbie Busby MD Active ISOSORBIDE DINITRATE 30 MG ORAL TABLET Take one by mouth daily ISOSORBIDE DINITRATE 30 MG ORAL TABLET 621379 ISOSORBIDE DINITRATE Inactive NORVASC 10 MG ORAL TABLET 1 tablet by mouth daily NORVASC 10 MG ORAL TABLET 022232 AMLODIPINE BESYLATE Inactive AZITHROMYCIN 250 MG ORAL TABLET 2 tablets PO today---then, 1 tablet PO daily x 4 more days (and 1 optional refill) AZITHROMYCIN 250 MG ORAL TABLET 980206 AZITHROMYCIN Inactive CHERATUSSIN AC 100-10 MG/5ML ORAL SOLUTION 7.5 mL PO q 4-6 hrs PRN cough 2014 CHERATUSSIN AC 100-10 MG/5ML ORAL SOLUTION 858944 GUAIFENESIN-CODEINE Inactive VIIBRYD 40 MG ORAL TABLET take 1 tab po qday for depression. 2014 VIIBRYD 40 MG ORAL TABLET VILAZODONE HCL Inactive HYDRALAZINE HCL 25 MG ORAL TABLET 1 tablet by mouth tid for hypertension 2013 HYDRALAZINE HCL 25 MG ORAL TABLET 637768 HYDRALAZINE HCL Inactive SPIRONOLACTONE 50 MG ORAL TABLET 1 tablet by mouth twice a day SPIRONOLACTONE 50 MG ORAL TABLET 256909 SPIRONOLACTONE Inactive FENOFIBRATE 145 MG ORAL TABLET Take one by mouth daily FENOFIBRATE 145 MG ORAL TABLET 762898 FENOFIBRATE Inactive PROTONIX 40 MG INTRAVENOUS SOLUTION RECONSTITUTED 1 po qday for acid reflux PROTONIX 40 MG INTRAVENOUS SOLUTION RECONSTITUTED 512796 PANTOPRAZOLE SODIUM Inactive CEFDINIR 300 MG ORAL CAPSULE Take 1 cap po bid x 10 days CEFDINIR 300 MG ORAL CAPSULE 309062 CEFDINIR Inactive PREDNISONE 20 MG ORAL TABLET 1 tablet twice daily for 2 days, then 1 tablet once daily for 2 days PREDNISONE 20 MG ORAL TABLET 574001 PREDNISONE Inactive NYSTATIN 644964 UNIT/ML MOUTH/THROAT SUSPENSION 5mL po QID x 10 days NYSTATIN 216082 UNIT/ML MOUTH/THROAT SUSPENSION 532685 NYSTATIN Inactive BETADINE 10 % EXTERNAL SOLUTION 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 07/29 BETADINE 10 % EXTERNAL SOLUTION 6826874 POVIDONE-IODINE Inactive TRILEPTAL 150 MG ORAL TABLET 1 TAB PO Q HS TRILEPTAL 150 MG ORAL TABLET 711021 OXCARBAZEPINE Inactive LAMISIL 125 MG ORAL PACKET 1 TAB PO DAILY LAMISIL 125 MG ORAL PACKET TERBINAFINE HCL Inactive HYDROCHLOROTHIAZIDE TABLET Take one by mouth daily HYDROCHLOROTHIAZIDE TABLET HYDROCHLOROTHIAZIDE TABS Inactive HYDROCODONE-ACETAMINOPHEN 5-325 MG ORAL TABLET 1 tab by mouth BID prn back pain HYDROCODONE-ACETAMINOPHEN 5-325 MG ORAL TABLET 459218 HYDROCODONE-ACETAMINOPHEN Inactive HYDRALAZINE HCL 50 MG ORAL TABLET TWO BY MOUTH THREE TIMES DAILY HYDRALAZINE HCL 50 MG ORAL TABLET 316948 HYDRALAZINE HCL Inactive LEVAQUIN 500 MG ORAL TABLET 1 tablet by mouth daily for 7 days LEVAQUIN 500 MG ORAL TABLET 815517 LEVOFLOXACIN Inactive SPIRONOLACTONE 25 MG ORAL TABLET 4 tablets by mouth daily SPIRONOLACTONE 25 MG ORAL TABLET 048626 SPIRONOLACTONE Inactive MECLIZINE HCL 25 MG ORAL TABLET one 4 times a day as needed for dizziness MECLIZINE HCL 25 MG ORAL TABLET 952376 MECLIZINE HCL Inactive CLONIDINE HCL 0.2 MG ORAL TABLET 1 TAB BY MOUTH EVERY 8 HOURS CLONIDINE HCL 0.2 MG ORAL TABLET 568409 CLONIDINE HCL Inactive CYCLOBENZAPRINE HCL 10 MG ORAL TABLET 1 tablet by mouth three times daily as needed for muscle spasm/pain for 10 days CYCLOBENZAPRINE HCL 10 MG ORAL TABLET 507207 CYCLOBENZAPRINE HCL Inactive VITAMIN D3 80192 UNIT ORAL CAPSULE 2 CAPS PO WEEKLY VITAMIN D3 86700 UNIT ORAL CAPSULE CHOLECALCIFEROL Inactive FIORICET 50-300-40 MG ORAL CAPSULE take 1 tab po qday prn migraines. FIORICET 50-300-40 MG ORAL CAPSULE 880837 BUTALBITAL-APAP- CAFFEINE Inactive FLONASE 50 MCG/ACT NASAL SUSPENSION 1 spray each nostril twice daily for allergies and runny nose FLONASE 50 MCG/ACT NASAL SUSPENSION 1470240 FLUTICASONE PROPIONATE Inactive LORATADINE 10 MG ORAL TABLET 1 tablet by mouth daily for congestion and allergies. LORATADINE 10 MG ORAL TABLET 968628 LORATADINE Inactive NITROSTAT 0.4 MG SUBLINGUAL TABLET SUBLINGUAL PRN NITROSTAT 0.4 MG SUBLINGUAL TABLET SUBLINGUAL 277915 NITROGLYCERIN Inactive GUAIFENESIN ER 600 MG ORAL TABLET EXTENDED RELEASE 12 HOUR 1 tab po q am 2016 GUAIFENESIN ER 600 MG ORAL TABLET EXTENDED RELEASE 12 HOUR GUAIFENESIN Inactive ZITHROMAX 250 MG ORAL TABLET 2 po today, then 1 po q days 2-5 ZITHROMAX 250 MG ORAL TABLET 477334 AZITHROMYCIN Inactive TERBINAFINE HCL 250 MG ORAL TABLET 1 tab po qday for foot infection TERBINAFINE HCL 250 MG ORAL TABLET 888928 TERBINAFINE HCL Inactive KEFLEX 500 MG ORAL CAPSULE 1 po TID x 10 days KEFLEX 500 MG ORAL CAPSULE 433070 CEPHALEXIN Inactive BACTRIM DS 800-160 MG ORAL TABLET 1 tab by mouth twice daily 2015 BACTRIM DS 800-160 MG ORAL TABLET 058246 TRIMETHOPRIM- SULFAMETHOXAZOLE Inactive PREDNISONE 20 MG ORAL TABLET take 3 tabs daily for 3 days, 2 tabs daily for 3 days, 1 tab daily for 3 days, 1/2 tab daily for 4 days PREDNISONE 20 MG ORAL TABLET 945792 PREDNISONE Inactive Advance Directives Directive Description Start [...] AUTO - Chemistry sodium, serum 142 mmol/L 737-434 4023/07/17 carbon dioxide, venous blood 28.2 mmol/L 21.0-32.0 [...] % 11.0-15.0 platelet count 185 THOUSAND/UL 10*3/mm3 483-396 9838/04/14 mean platelet volume 10.9 fL 7.5-12.5 Lab Report: LIPID PANEL, TSH/899, T4, FREE/866 - Chemistry cholesterol, serum 220 mg/dL 585-783 6534/04/14 HDL cholesterol, serum 30 mg/dL > OR=40 [...] 1.80 ng/mL 0.00-4.00 Lab Report: VITAMIN D, 25-HYDROXY/98094 - Chemistry vitamin D 25-hydroxy, serum 25 ng/mL 30-100 Office Visit: Confusion, dizziness after fall - Basic LDL target level 130 mg/dL Office Visit: Confusion, dizziness after fall - Chemistry HDL cholesterol, serum, target level 40 mg/dL triglyceride, target level 150 mg/dL cholesterol, target level 200 mg/dL Encounters Code Encounter Date Provider Facility CPT-95032 Level 3 Est. Patient 15:40:49 CDT Robbie Busby MD [facility] CPT-99903 Level 4 Est. Patient 15:18:19 CDT Robbie Busby MD [facility] CPT-76308 Level 3 Est. Patient 09:00:37 CDT Rober Rodríguez [facility] CPT-51485 Level 3 Est. Patient 16:07:10 CDT Robbie Busby MD [facility] CPT-49751 Level 4 Est. Patient 11:56:16 CDT Erin Garsia [facility] CPT-93756 Level 3 Est. Patient 17:48:02 CDT Robbie Busby MD [facility] CPT-89181 Level 4 Est. 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 Patient 09:16:37 CDT Robbie Busby MD [facility] CPT-76784 Level 3 Est. Patient 19:38:43 CDT Robbie Busby MD [facility] CPT-02726 Level 3 Est. Patient 11:53:38 CDT Robbie Busby MD [facility] CPT-74740 Level 4 Est. Patient 12:52:22 CDT Rober Rodríguez [facility] CPT-40187 Level 4 Est. Patient 22:55:17 CDT Robbie Busby MD [facility] CPT-59371 Level 3 Est. Patient 12:38:24 CDT Desmond Diaz DO [facility] CPT-95690 Level 4 Est. Patient 11:25:03 RECORD PRESSMAN Robbie Busby MD [facility] CPT-84355 Level 4 Est. Patient 14:50:10 CDT Robbie Busby MD [facility] CPT-60259 Level 4 Est. Patient 23:30:43 CDT Robbie Busby MD [facility] CPT-18639 Level 4 Est. Patient 10:30:43 CDT Robbie Busby MD [facility] CPT-01705 Level 3 Est. Patient 17:08:12 CDT Alex ALVAREZ [facility] CPT-71065 Level 4 Est. Patient 17:51:38 CDT Robbie Busby MD [facility] CPT-77980 Level 4 Est. Patient 14:00:21 CDT Robbie Busby MD [facility] CPT-67221 Level 4 Est. Patient 12:46:48 CDT Robbie Busby MD [facility] CPT-76339 Level 4 Est. Patient 13:34:33 CDT Robbie Busby MD [facility] CPT-46618 Level 4 Est. Patient 16:58:28 CDT Robbie Busby MD [facility] CPT-09940 Level 3 Est. Patient 19:36:53 CDT Alex Shaw [facility] CPT-29263 Level 3 Est. Patient 12:58:15 CDT Robbie Busby MD [facility] Procedures Code Procedure Name Date Entry Date Standard Description CPT-J1071 Depo Testosterone 200mg 09:38:36 RECORD PRESSMAN CPT-34921 Abx/Therapy Injection 09:38:36 RECORD PRESSMAN CPT-J1071 Depo Testosterone 200mg 10:22:56 RECORD PRESSMAN CPT-18249 Abx/Therapy Injection 10:22:56 RECORD PRESSMAN CPT-J1071 Depo Testosterone 200mg 15:40:23 CDT CPT-49482 Abx/Therapy Injection 15:40:23 CDT CPT-J1071 Depo Testosterone 200mg 14:20:43 CDT CPT-57267 Abx/Therapy Injection 14:20:43 CDT CPT-J1071 Depo Testosterone 200mg 14:17:22 CDT CPT-06174 Abx/Therapy Injection 14:17:22 CDT CPT-J1071 Depo Testosterone 200mg 09:03:53 CDT CPT-72845 Abx/Therapy Injection 09:03:53 CDT CPT-G0439 [facility] Annual Wellness Exam 16:47:44 CDT CPT-J1071 Depo Testosterone 200mg 09:06:28 CDT CPT-14081 Abx/Therapy Injection 09:06:28 CDT CPT-J1071 Depo Testosterone 200mg 08:30:01 CDT CPT-04919 Abx/Therapy Injection 08:30:01 CDT CPT-J1071 Depo Testosterone 200mg 08:24:00 CDT CPT-41553 Abx/Therapy Injection 08:24:00 CDT CPT-48652 Venipuncture Draw Fee 14:39:06 CDT CPT-38046 Ribs unilateral 2V - XRAY USE ONLY 12:10:11 CDT CPT-03662 First Vx - Ix admin for Medicare patients 16:32:53 CDT CPT-79715 Boostrix Intramuscular Suspension 5-2.5-18.5 16:32:53 CDT CPT-35155 TB Skin Test 11:42:28 CDT CPT-71866 Tdap 7yrs or > 11:42:28 CDT CPT-J0696 Rocephin 1000 mg (Ceftriaxone) 17:43:43 RECORD PRESSMAN CPT-J1040 Depo Medrol 80 mg (Methyl Prednisolone Acetate) 17:43: 43 RECORD PRESSMAN CPT-J1100 Decadron 8mg (Dexamethasone) 17:43:42 RECORD PRESSMAN CPT-25851 Abx/Therapy Injection 17:43:42 RECORD PRESSMAN CPT-31024 Abx/Therapy Injection 17:43:42 RECORD PRESSMAN CPT-J1040 Depo Medrol 80 mg (Methyl Prednisolone Acetate) 09:43: 34 RECORD PRESSMAN CPT-J1100 Decadron 8mg (Dexamethasone) 09:43:34 RECORD PRESSMAN CPT-J0696 Rocephin 1gm Inj Solr 09:43:34 RECORD PRESSMAN CPT-65478 Wound Culture - LAB USE ONLY 14:00:21 CDT CPT-I/D I/D Abscess 09:16:37 CDT CPT-23603 Venipuncture Draw Fee 15:20:23 CDT CPT-10102 Microalbumin - LAB USE ONLY 16:02:19 CDT CPT-78947 CBC - LAB USE ONLY 16:02:19 CDT CPT-82131 Venipuncture Draw Fee 16:02:19 CDT CPT-G0438 Initial Annual Wellness Exam 08:10:28 CDT CPT-37489 Venipuncture Draw Fee 13:07:17 CDT CPT-G0008 Administration of Influenza Virus Vaccine 16:09:59 CDT CPT-94490 Fluzone Quadrivalent Intramuscular Suspension 0.5 ML 16: 09:59 CDT CPT-07643 Spec Collection and Handling Fee 15:05:50 CDT
--- OUTSIDE RECORDS SUMMARY | 2018-04-18 10:52 | XMS REPORT | Clinical Summary ---
Author Author Admin, [facility] Organization [facility] Address Unknown [...] and myositis, unspecified URI 465.9 Active Agnieszkaina Anen GONZALEZN Acute upper respiratory infections of unspecified site Medication List Medication Instructions Start Date Stop Date Generic Name NDC Status Provider Patient Instruction GUAIFENESIN 600 MG [id number] 1 tab po q am GUAIFENESIN 11898326973 Active 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 [employer]INT [employer]ERK Active FLUTICASONE PROPIONATE 50 MCG/ACT SUSP 2 sprays per nostril bid for 1 week, then 1 spray bid FLUTICASONE PROPIONATE 48146957571 Active 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 [employer] COMPLAINT CLERK Active HYDRALAZINE HCL 25 MG ORAL TABS Take 1 tab BID. HYDRALAZINE HCL 44503583622 Active 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 [employer]ER COMPLAINT CLERK Active VITAMIN D3 52295 UNIT ORAL TABS 2 po weekly CHOLECALCIFEROL 84008655527 Active KATHIE MoncadaNara Active OXYCODONE HCL ER 10 MG ORAL T12A 1 tab po 3 times qd. OXYCODONE HCL 79770282922 Active Robbie Busby MD Active NITROSTAT 0.4 MG SUBL PRN NITROGLYCERIN 71639542630 No Longer Active Robbie Busby MD Active LORATADINE 10 MG TABS 1 tablet by mouth daily for congestion and allergies. LORATADINE 00813420900 No Longer Active Robbie Busby MD Active FLONASE 50 MCG/ACT SUSP 1 spray each nostril twice daily for allergies and runny nose FLUTICASONE PROPIONATE 39651545947 No Longer Active Robbie Busby MD Active FIORICET 50-300-40 MG ORAL CAPS take 1 tab po qday prn migraines. [id number] 29694074194 No Longer Active Robbie Busby MD Active VITAMIN D3 26057 UNIT CAPS 2 CAPS PO WEEKLY CHOLECALCIFEROL 62945713961 No Longer Active Robbie Busby MD Active CYCLOBENZAPRINE HCL 10 MG TABS 1 tablet by mouth three times daily as needed for muscle spasm/pain for 10 days CYCLOBENZAPRINE HCL 74324231295 No Longer Active Robbie Busby MD Active PREDNISONE 20 MG TAB take 3 tabs daily for 3 days, 2 tabs daily for 3 days, 1 tab daily for 3 days, 1/2 tab daily for 4 days PREDNISONE 13861900489 No Longer Active Erin Garsia APRN Active CLONIDINE HCL 0.2 MG ORAL TABS 1 TAB BY MOUTH EVERY 8 HOURS 12/29 CLONIDINE HCL 06722070859 No Longer Active Erin Garsia APRN Active MECLIZINE HCL 25 MG TAB one 4 times a day as needed for dizziness MECLIZINE HCL 25240632750 No Longer Active Erin Garsia APRN Active SPIRONOLACTONE 25 MG TAB 4 tablets by mouth daily SPIRONOLACTONE 33746084313 No Longer Active Erin Garsia APRN Active LEVAQUIN 500 MG TAB 1 tablet by mouth daily for 7 days LEVOFLOXACIN 44593668344 No Longer Active Erin Garsia APRN Active BACTRIM DS 800-160 MG TAB 1 tab by mouth twice daily TRIMETHOPRIM-SULFAMETHOXAZOLE 54440664248 No Longer Active Robbie Busby MD Active HYDRALAZINE HCL 50 MG ORAL TABS TWO BY MOUTH THREE TIMES DAILY HYDRALAZINE HCL 82491601141 No Longer Active 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 [employer]ER COMPLAINT CLERK Active HYDROCODONE-ACETAMINOPHEN 5-325 MG TABS 1 tab by mouth BID prn back pain 2013 HYDROCODONE-ACETAMINOPHEN 02033267156 No Longer Active 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 [employer]OMER COMPLAINT CLERK Active HYDROCHLOROTHIAZIDE TABS Take one by mouth daily HYDROCHLOROTHIAZIDE TABS 94917857843 No Longer Active 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 [employer]USTOMER COMPLAINT CLERK Active LAMISIL 125 MG ORAL PACK 1 TAB PO DAILY TERBINAFINE HCL 61067803886 No Longer Active 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 [employer]USTOMER COMPLAINT CLERK Active TRILEPTAL 150 MG ORAL TABS 1 TAB PO Q HS OXCARBAZEPINE 06193084310 No Longer Active 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 CUSTOMER COMPLAINT CLERK Active BETADINE 10 % EXT SOLN 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 POVIDONE-IODINE 46636104342 No Longer Active Jillina Frakierstenl [employer]ER COMPLAINT CLERK Active NYSTATIN 019153 UNIT/ML M/T SUSP 5mL po QID x 10 days NYSTATIN 10606630658 No Longer Active Erin Garsia APRN Active PREDNISONE 20 MG TAB 1 tablet twice daily for 2 days, then 1 tablet once daily for 2 days PREDNISONE 48367833793 No Longer Active Robbie Busby MD Active CEFDINIR 300 MG ORAL CAPS Take 1 cap po bid x 10 days CEFDINIR 57419771655 No Longer Active Robbie Busby MD Active AMLODIPINE BESYLATE 10 MG TABS 1 tablet by mouth daily AMLODIPINE BESYLATE 78220071477 Active Robbie Busby MD Active CARVEDILOL 25 MG TABS 1 & 1/2 TAB po BID CARVEDILOL 66508214049 Active Robbie Busby MD Active NEXIUM 40 MG CPDR 1 cap by mouth daily ESOMEPRAZOLE MAGNESIUM 17199460309 Active Robbie Busby MD Active PROTONIX 40 MG SOLR 1 po qday for acid reflux PANTOPRAZOLE SODIUM 62616107493 No Longer Active Gali Raida Active KEFLEX 500 MG CAP 1 po TID x 10 days CEPHALEXIN 92137231895 No Longer Active Robbie Busby MD Active TOPIRAMATE 50 MG ORAL TABS take 1 tab po BID for migraines. TOPIRAMATE 06856624443 Active Robbie Busby MD Active TEMAZEPAM 15 MG ORAL CAPS 1 TAB PO Q HS TEMAZEPAM 41393744676 Active Robbie Busby MD Active ALPRAZOLAM 2 MG ORAL TABS 1 TAB PO BID ALPRAZOLAM 80697036355 Active Robbie Busby MD Active FENOFIBRATE 145 MG TABS Take one by mouth daily FENOFIBRATE 14863660629 No Longer Active Robbie Busby MD Active SPIRONOLACTONE 50 MG TABS 1 tablet by mouth twice a day SPIRONOLACTONE 73483143920 No Longer Active Robbie Busby MD Active HYDRALAZINE HCL 25 MG TABS 1 tablet by mouth tid for hypertension HYDRALAZINE HCL 49264165702 No Longer Active Robbie Busby MD Active VIIBRYD 40 MG TABS take 1 tab po qday for depression. VILAZODONE HCL 18297047288 No Longer Active Robbie Busby MD Active TERBINAFINE HCL 250 MG TABS 1 tab po qday for foot infection 2014 TERBINAFINE HCL 37651929472 No Longer Active Robbie Busby MD Active GABAPENTIN 300 MG CAPS 1 po q hs for nerve pain GABAPENTIN 41206932383 Active Robbie Busby MD Active CHERATUSSIN AC 100-10 MG/5ML ORAL SOLN 7.5 mL PO q 4-6 hrs PRN cough GUAIFENESIN-CODEINE 80136277692 No Longer Active Robbie Busby MD Active AZITHROMYCIN 250 MG ORAL TABS 2 tablets PO today---then, 1 tablet PO daily x 4 more days (and 1 optional refill) AZITHROMYCIN 59436311181 No Longer Active Robbie Busby MD Active NORVASC 10 MG TAB 1 tablet by mouth daily AMLODIPINE BESYLATE 49914878589 No Longer Active Alex ALVAREZ Active IMDUR 60 MG TAB CR take 1 tab po qday for blood pressure ISOSORBIDE MONONITRATE Active Rbobie Busby MD Active ISOSORBIDE DINITRATE 30 MG TABS Take one by mouth daily ISOSORBIDE DINITRATE 92200074977 No Longer Active Robbie Busby MD Active VIIBRYD 40 MG TABS 1 TA B PO DAILY VILAZODONE HCL 49991007489 Active Robbie Busby MD Active ZITHROMAX 250 MG TAB 2 po today, then 1 po q days 2-5 AZITHROMYCIN 14148838888 No Longer Active Robbie Busby MD Active [id number] 0.3 MG/24HR PTWK apply 2 patches q week for HTN CLONIDINE HCL 76540101375 Active Robbie Busby MD Active DOXAZOSIN MESYLATE 4 MG TABS Take one by mouth daily DOXAZOSIN MESYLATE 01621946565 Active Robbie Busby MD Active TOPROL XL 200 MG [id number] Take one by mouth daily METOPROLOL SUCCINATE 23357795991 Active Robbie Busby MD Active VENLAFAXINE HCL ER 150 MG [id number] Take one by mouth daily VENLAFAXINE HCL 01910347749 Active Robbie Busby MD Active LIPITOR 40 MG TABS Take one by mouth daily ATORVASTATIN CALCIUM 67718577577 Active Robbie Busby MD Active ISOSORBIDE DINITRATE 30 MG TABS Take one by mouth daily ISOSORBIDE DINITRATE 30 MG TABS 296401 ISOSORBIDE DINITRATE Inactive NORVASC 10 MG TAB 1 tablet by mouth daily NORVASC 10 MG TAB 405166 AMLODIPINE BESYLATE Inactive AZITHROMYCIN 250 MG ORAL TABS 2 tablets PO today---then, 1 tablet PO daily x 4 more days (and 1 optional refill) AZITHROMYCIN 250 MG ORAL TABS 1322277 AZITHROMYCIN Inactive CHERATUSSIN AC 100-10 MG/5ML ORAL SOLN 7.5 mL PO q 4-6 hrs PRN cough CHERATUSSIN AC 100-10 MG/5ML ORAL SOLN 777231 GUAIFENESIN- CODEINE Inactive VIIBRYD 40 MG TABS take 1 tab po qday for depression. VIIBRYD 40 MG TABS VILAZODONE HCL Inactive HYDRALAZINE HCL 25 MG TABS 1 tablet by mouth tid for hypertension HYDRALAZINE HCL 25 MG TABS 584546 HYDRALAZINE HCL Inactive SPIRONOLACTONE 50 MG TABS 1 tablet by mouth twice a day SPIRONOLACTONE 50 MG TABS 947306 SPIRONOLACTONE Inactive FENOFIBRATE 145 MG TABS Take one by mouth daily FENOFIBRATE 145 MG TABS 545505 FENOFIBRATE Inactive PROTONIX 40 MG SOLR 1 po qday for acid reflux PROTONIX 40 MG SOLR 770893 PANTOPRAZOLE SODIUM Inactive CEFDINIR 300 MG ORAL CAPS Take 1 cap po bid x 10 days CEFDINIR 300 MG ORAL CAPS 398362 CEFDINIR Inactive PREDNISONE 20 MG TAB 1 tablet twice daily for 2 days, then 1 tablet once daily for 2 days PREDNISONE 20 MG TAB 914529 PREDNISONE Inactive NYSTATIN 143330 UNIT/ML M/T SUSP 5mL po QID x 10 days NYSTATIN 368756 UNIT/ML M/T SUSP 228508 NYSTATIN Inactive BETADINE 10 % EXT SOLN 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 BETADINE 10 % EXT SOLN 4667114 POVIDONE-IODINE Inactive TRILEPTAL 150 MG ORAL TABS 1 TAB PO Q HS TRILEPTAL 150 MG ORAL TABS 571843 OXCARBAZEPINE Inactive LAMISIL 125 MG ORAL PACK 1 TAB PO DAILY LAMISIL 125 MG ORAL PACK TERBINAFINE HCL Inactive HYDROCHLOROTHIAZIDE TABS Take one by mouth daily HYDROCHLOROTHIAZIDE TABS HYDROCHLOROTHIAZIDE TABS Inactive HYDROCODONE-ACETAMINOPHEN 5-325 MG TABS 1 tab by mouth BID prn back pain 2013 HYDROCODONE-ACETAMINOPHEN 5-325 MG TABS 458233 HYDROCODONE -ACETAMINOPHEN Inactive HYDRALAZINE HCL 50 MG ORAL TABS TWO BY MOUTH THREE TIMES DAILY HYDRALAZINE HCL 50 MG ORAL TABS 712913 HYDRALAZINE HCL Inactive LEVAQUIN 500 MG TAB 1 tablet by mouth daily for 7 days LEVAQUIN 500 MG TAB 721929 LEVOFLOXACIN Inactive SPIRONOLACTONE 25 MG TAB 4 tablets by mouth daily SPIRONOLACTONE 25 MG TAB 720290 SPIRONOLACTONE Inactive MECLIZINE HCL 25 MG TAB one 4 times a day as needed for dizziness MECLIZINE HCL 25 MG TAB 489920 MECLIZINE HCL Inactive CLONIDINE HCL 0.2 MG ORAL TABS 1 TAB BY MOUTH EVERY 8 HOURS 12/29 CLONIDINE HCL 0.2 MG ORAL TABS 194039 CLONIDINE HCL Inactive CYCLOBENZAPRINE HCL 10 MG TABS 1 tablet by mouth three times daily as needed for muscle spasm/pain for 10 days CYCLOBENZAPRINE HCL 10 MG TABS 687074 CYCLOBENZAPRINE HCL Inactive VITAMIN D3 90020 UNIT CAPS 2 CAPS PO WEEKLY VITAMIN D3 74639 UNIT CAPS CHOLECALCIFEROL Inactive FIORICET 50-300-40 MG ORAL CAPS take 1 tab po qday prn migraines. FIORICET 50-300-40 MG ORAL CAPS 596204 [id number] Inactive FLONASE 50 MCG/ACT SUSP 1 spray each nostril twice daily for allergies and runny nose FLONASE 50 MCG/ACT SUSP 7051881 FLUTICASONE PROPIONATE Inactive LORATADINE 10 MG TABS 1 tablet by mouth daily for congestion and allergies. LORATADINE 10 MG TABS 531322 LORATADINE Inactive NITROSTAT 0.4 MG SUBL PRN NITROSTAT 0.4 MG SUBL 825988 NITROGLYCERIN Inactive ZITHROMAX 250 MG TAB 2 po today, then 1 po q days 2-5 ZITHROMAX 250 MG TAB 0910925 AZITHROMYCIN Inactive TERBINAFINE HCL 250 MG TABS 1 tab po qday for foot infection 2014 TERBINAFINE HCL 250 MG TABS 783352 TERBINAFINE HCL Inactive KEFLEX 500 MG CAP 1 po TID x 10 days KEFLEX 500 MG CAP 023256 CEPHALEXIN Inactive BACTRIM DS 800-160 MG TAB 1 tab by mouth twice daily BACTRIM DS 800-160 MG TAB 858341 TRIMETHOPRIM-SULFAMETHOXAZOLE Inactive PREDNISONE 20 MG TAB take 3 tabs daily for 3 days, 2 tabs daily for 3 days, 1 tab daily for 3 days, 1/2 tab daily for 4 days PREDNISONE 20 MG TAB 706887 PREDNISONE Inactive Advance Directives Directive Description Start [...] AUTO - Chemistry sodium, serum 142 mmol/L 526-574 9767/07/17 carbon dioxide, venous blood 28.2 mmol/L 21.0-32.0 [...] Panel, CKI, UADIP W/MICRO, AUTO - Urinalysis glucose, urine, semiquantitative Negative Negative ketones, urine, by test strip Negative Negative bilirubin, urine Negative Negative urobilinogen, urine, semiquantitative (dipstick) 0.2 E.U./dL Normal [...] % 11.0-15.0 platelet count 185 THOUSAND/UL 10*3/mm3 213-518 5709/04/14 mean platelet volume 10.9 fL 7.5-12.5 Lab Report: LIPID PANEL, TSH/899, T4, FREE/866 - Chemistry cholesterol, serum 220 mg/dL 820-133 3150/04/14 HDL cholesterol, serum 30 mg/dL > OR=40 [...] mg/dL Encounters Code Encounter Date Provider Facility CPT-39787 Level 3 Est. Patient 09:00:37 CDT Rober Rodríguez [facility] CPT-81698 Level 3 Est. Patient 16:07:10 CDT Robbie Busby MD [facility] CPT-07234 Level 4 Est. Patient 11:56:16 CDT Erin Garsia [facility] CPT-90788 Level 3 Est. Patient 17:48:02 CDT Robbie Busby MD [facility] CPT-23085 Level 4 Est. Patient 12:00:49 [employer] Rober Rodríguez [facility] CPT-61033 Level 3 Est. Patient 09:16:37 CDT Robbie Busby MD [facility] CPT-76236 Level 3 Est. Patient 19:38:43 CDT Robbie Busby MD [facility] CPT-59613 Level 3 Est. Patient 11:53:38 CDT Robbie Busby MD [facility] CPT-56998 Level 4 Est. Patient 12:52:22 CDT Rober Rodríguez [facility] CPT-90520 Level 4 Est. Patient 22:55:17 CDT Robbie Busby MD [facility] CPT-66176 Level 3 Est. Patient 12:38:24 CDT Desmond Diaz DO [facility] CPT-91120 Level 4 Est. Patient 11:25:03 [employer] Robbie Busby MD [facility] CPT-02256 Level 4 Est. Patient 14:50:10 CDT Robbie Busby MD [facility] CPT-05870 Level 4 Est. Patient 23:30:43 CDT Robbie Busby MD [facility] CPT-60915 Level 4 Est. Patient 10:30:43 CDT Robbie Busby MD [facility] CPT-32421 Level 3 Est. Patient 17:08:12 CDT Alex ALVAREZ [facility] CPT-76466 Level 4 Est. Patient 17:51:38 CDT Robbie Busby MD [facility] CPT-83914 Level 4 Est. Patient 14:00:21 CDT Robbie Busby MD [facility] CPT-75868 Level 4 Est. Patient 12:46:48 CDT Robbie Busby MD [facility] CPT-66446 Level 4 Est. Patient 13:34:33 CDT Robbie Busby MD [facility] CPT-94374 Level 4 Est. Patient 16:58:28 CDT Robbie Busby MD [facility] CPT-99183 Level 3 Est. Patient 19:36:53 CDT Alex ALVAREZ [facility] CPT-46237 Level 3 Est. Patient 12:58:15 CDT Robbie Busby MD [facility] Procedures Code Procedure Name Date Entry Date Standard Description CPT-41651 Venipuncture Draw Fee 14:39:06 CDT CPT-50093 Ribs unilateral 2V - XRAY USE ONLY 12:10:11 CDT CPT-59286 First Vx - Ix admin for Medicare patients 16:32:53 CDT CPT-80649 Boostrix Intramuscular Suspension 5-2.5-18.5 16:32:53 CDT CPT-11356 TB Skin Test 11:42:28 CDT CPT-74616 Tdap 7yrs or > 11:42:28 CDT CPT-J0696 Rocephin 1000 mg (Ceftriaxone) 17:43:43 [employer] CPT-J1040 Depo Medrol 80 mg (Methyl Prednisolone Acetate) 17:43: 43 [employer] CPT-J1100 Decadron 8mg (Dexamethasone) 17:43:42 [employer] CPT-92400 Abx/Therapy Injection 17:43:42 [employer] CPT-39357 Abx/Therapy Injection 17:43:42 [employer] CPT-J1040 Depo Medrol 80 mg (Methyl Prednisolone Acetate) 09:43: 34 [employer] CPT-J1100 Decadron 8mg (Dexamethasone) 09:43:34 [employer] CPT-J0696 Rocephin 1gm Inj Solr 09:43:34 [employer] CPT-77716 Wound Culture - LAB USE ONLY 14:00:21 CDT CPT-I/D I/D Abscess 09:16:37 CDT CPT-80884 Venipuncture Draw Fee 15:20:23 CDT CPT-57348 Microalbumin - LAB USE ONLY 16:02:19 CDT CPT-34848 CBC - LAB USE ONLY 16:02:19 CDT CPT-92032 Venipuncture Draw Fee 16:02:19 CDT CPT-G0438 Initial Annual Wellness Exam 08:10:28 CDT CPT-06996 Venipuncture Draw Fee 13:07:17 CDT CPT-G0008 Administration of Influenza Virus Vaccine 16:09:59 CDT CPT-91953 Fluzone Quadrivalent Intramuscular Suspension 0.5 ML 16: 09:59 CDT CPT-27590 Spec Collection and Handling Fee 15:05:50 CDT
--- OUTSIDE RECORDS SUMMARY | 2018-04-18 10:53 | XMS REPORT | Clinical Summary ---
Author Author Admin, [facility] Organization [facility] Address Unknown Phone Unavailable Allergies, Adverse [...] 1 tab by mouth twice daily TRIMETHOPRIM-SULFAMETHOXAZOLE [id number] No Longer Active Robbie Busby MD Active SPIRONOLACTONE 25 MG TAB 4 tablets by mouth daily SPIRONOLACTONE 60545424210 Active Robbie Busby MD Active HYDRALAZINE HCL 50 MG ORAL TABS TWO BY MOUTH THREE TIMES DAILY HYDRALAZINE HCL 70823286863 No Longer Active 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 HINGING MACHINE OPERATOR Active HYDROCODONE-ACETAMINOPHEN 5-325 MG TABS 1 tab by mouth BID prn back pain 2013 HYDROCODONE-ACETAMINOPHEN 46365473395 No Longer Active 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 HINGING MACHINE OPERATOR Active HYDROCHLOROTHIAZIDE TABS Take one by mouth daily HYDROCHLOROTHIAZIDE TABS 52700899165 No Longer Active 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 HINGING MACHINE OPERATOR Active LAMISIL 125 MG ORAL PACK 1 TAB PO DAILY TERBINAFINE HCL 53120793742 No Longer Active 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 HINGING MACHINE OPERATOR Active TRILEPTAL 150 MG ORAL TABS 1 TAB PO Q HS OXCARBAZEPINE 37677927247 No Longer Active 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 HINGING MACHINE OPERATOR Active BETADINE 10 % EXT SOLN 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 POVIDONE-IODINE 06399975499 No Longer Active 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 HINGING MACHINE OPERATOR Active NYSTATIN 845213 UNIT/ML M/T SUSP 5mL po QID x 10 days NYSTATIN 31535519019 No Longer Active Erin Garsia APRN Active PREDNISONE 20 MG TAB 1 tablet twice daily for 2 days, then 1 tablet once daily for 2 days PREDNISONE 55577596226 No Longer Active Robbie Busby MD Active CEFDINIR 300 MG ORAL CAPS Take 1 cap po bid x 10 days CEFDINIR 58429365540 No Longer Active Robbie Busby MD Active AMLODIPINE BESYLATE 10 MG TABS 1 tablet by mouth daily AMLODIPINE BESYLATE 56333033154 Active Robbie Busby MD Active CARVEDILOL 25 MG TABS 1 & 1/2 TAB po BID CARVEDILOL 06972144545 Active Robbie Busby MD Active VITAMIN D3 31334 UNIT CAPS 2 CAPS PO WEEKLY CHOLECALCIFEROL 82186671743 Active Erin Garsia APRN Active NEXIUM 40 MG CPDR 1 cap by mouth daily ESOMEPRAZOLE MAGNESIUM 38598073992 Active Gali Sruthi Active PROTONIX 40 MG SOLR 1 po qday for acid reflux PANTOPRAZOLE SODIUM 35524101445 No Longer Active Gali Torresjuan carlos Active KEFLEX 500 MG CAP 1 po TID x 10 days CEPHALEXIN 17663985546 No Longer Active Robbie Busby MD Active FIORICET 50-300-40 MG ORAL CAPS take 1 tab po qday prn migraines. [id number] 64732324122 Active Robbie Busby MD Active TOPIRAMATE 50 MG ORAL TABS take 1 tab po BID for migraines. TOPIRAMATE 77497762326 Active Robbie Busby MD Active MECLIZINE HCL 25 MG TAB one 4 times a day as needed for dizziness MECLIZINE HCL 28761185818 Active Robbie Busby MD Active TEMAZEPAM 15 MG ORAL CAPS 1 TAB PO Q HS TEMAZEPAM 67719221644 Active Robbie Busby MD Active ALPRAZOLAM 2 MG ORAL TABS 1 TAB PO BID ALPRAZOLAM 18295080186 Active Robbie Busby MD Active FENOFIBRATE 145 MG TABS Take one by mouth daily FENOFIBRATE 00642132062 No Longer Active Robbie Busby MD Active SPIRONOLACTONE 50 MG TABS 1 tablet by mouth twice a day SPIRONOLACTONE 14595849247 No Longer Active Robbie Busby MD Active HYDRALAZINE HCL 25 MG TABS 1 tablet by mouth tid for hypertension HYDRALAZINE HCL 68271131562 No Longer Active Robbie Busby MD Active VIIBRYD 40 MG TABS take 1 tab po qday for depression. VILAZODONE HCL 56820025393 No Longer Active Robbie Busby MD Active TERBINAFINE HCL 250 MG TABS 1 tab po qday for foot infection 2014 TERBINAFINE HCL 90903667398 No Longer Active Robbie Busby MD Active GABAPENTIN 300 MG CAPS 1 po q hs for nerve pain GABAPENTIN 53918878440 Active Robbie Busby MD Active FLONASE 50 MCG/ACT SUSP 1 spray each nostril twice daily for allergies and runny nose FLUTICASONE PROPIONATE 92620447755 Active Robbie Busby MD Active CHERATUSSIN AC 100-10 MG/5ML ORAL SOLN 7.5 mL PO q 4-6 hrs PRN cough GUAIFENESIN-CODEINE 57912836141 No Longer Active Robbie Busby MD Active AZITHROMYCIN 250 MG ORAL TABS 2 tablets PO today---then, 1 tablet PO daily x 4 more days (and 1 optional refill) AZITHROMYCIN 76383736979 No Longer Active Robbie Busby MD Active CLONIDINE HCL 0.2 MG ORAL TABS 1 TAB BY MOUTH EVERY 8 HOURS CLONIDINE HCL 21763942175 Active Robbie Busby MD Active NORVASC 10 MG TAB 1 tablet by mouth daily AMLODIPINE BESYLATE 03667175735 No Longer Active Alex ALVAREZ Active IMDUR 60 MG TAB CR take 1 tab po qday for blood pressure ISOSORBIDE MONONITRATE Active Robbie Busby MD Active ISOSORBIDE DINITRATE 30 MG TABS Take one by mouth daily ISOSORBIDE DINITRATE 62181433694 No Longer Active Robbie Busby MD Active VIIBRYD 40 MG TABS 1 TA B PO DAILY VILAZODONE HCL 73653045510 Active Robbie Busby MD Active LORATADINE 10 MG TABS 1 tablet by mouth daily for congestion and allergies. LORATADINE 28480955273 Active Robbie Busby MD Active ZITHROMAX 250 MG TAB 2 po today, then 1 po q days 2-5 AZITHROMYCIN 65715665001 No Longer Active Robbie Busby MD Active [id number] 0.3 MG/24HR PTWK apply 2 patches q week for HTN CLONIDINE HCL 45892645597 Active Robbie Busby MD Active NITROSTAT 0.4 MG SUBL PRN NITROGLYCERIN 89957579638 Active Robbie Busby MD Active DOXAZOSIN MESYLATE 4 MG TABS Take one by mouth daily DOXAZOSIN MESYLATE 08193797941 Active Robbie Busby MD Active TOPROL XL 200 MG [id number] Take one by mouth daily METOPROLOL SUCCINATE 19200351448 Active Robbie Busby MD Active VENLAFAXINE HCL ER 150 MG [id number] Take one by mouth daily VENLAFAXINE HCL 37942154330 Active Robbie Busby MD Active LIPITOR 40 MG TABS Take one by mouth daily ATORVASTATIN CALCIUM 88155994644 Active Robbie Busby MD Active ISOSORBIDE DINITRATE 30 MG TABS Take one by mouth daily ISOSORBIDE DINITRATE 30 MG TABS 238341 ISOSORBIDE DINITRATE Inactive NORVASC 10 MG TAB 1 tablet by mouth daily NORVASC 10 MG TAB 894464 AMLODIPINE BESYLATE Inactive AZITHROMYCIN 250 MG ORAL TABS 2 tablets PO today---then, 1 tablet PO daily x 4 more days (and 1 optional refill) AZITHROMYCIN 250 MG ORAL TABS 9538960 AZITHROMYCIN Inactive CHERATUSSIN AC 100-10 MG/5ML ORAL SOLN 7.5 mL PO q 4-6 hrs PRN cough CHERATUSSIN AC 100-10 MG/5ML ORAL SOLN 419638 GUAIFENESIN- CODEINE Inactive VIIBRYD 40 MG TABS take 1 tab po qday for depression. VIIBRYD 40 MG TABS VILAZODONE HCL Inactive HYDRALAZINE HCL 25 MG TABS 1 tablet by mouth tid for hypertension HYDRALAZINE HCL 25 MG TABS 120286 HYDRALAZINE HCL Inactive SPIRONOLACTONE 50 MG TABS 1 tablet by mouth twice a day SPIRONOLACTONE 50 MG TABS 857639 SPIRONOLACTONE Inactive FENOFIBRATE 145 MG TABS Take one by mouth daily FENOFIBRATE 145 MG TABS 738381 FENOFIBRATE Inactive PROTONIX 40 MG SOLR 1 po qday for acid reflux PROTONIX 40 MG SOLR 568402 PANTOPRAZOLE SODIUM Inactive CEFDINIR 300 MG ORAL CAPS Take 1 cap po bid x 10 days CEFDINIR 300 MG ORAL CAPS 162493 CEFDINIR Inactive PREDNISONE 20 MG TAB 1 tablet twice daily for 2 days, then 1 tablet once daily for 2 days PREDNISONE 20 MG TAB 602181 PREDNISONE Inactive NYSTATIN 548163 UNIT/ML M/T SUSP 5mL po QID x 10 days NYSTATIN 485038 UNIT/ML M/T SUSP 060425 NYSTATIN Inactive BETADINE 10 % EXT SOLN 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 BETADINE 10 % EXT SOLN 8349803 POVIDONE-IODINE Inactive TRILEPTAL 150 MG ORAL TABS 1 TAB PO Q HS TRILEPTAL 150 MG ORAL TABS 858665 OXCARBAZEPINE Inactive LAMISIL 125 MG ORAL PACK 1 TAB PO DAILY LAMISIL 125 MG ORAL PACK TERBINAFINE HCL Inactive HYDROCHLOROTHIAZIDE TABS Take one by mouth daily HYDROCHLOROTHIAZIDE TABS HYDROCHLOROTHIAZIDE TABS Inactive HYDROCODONE-ACETAMINOPHEN 5-325 MG TABS 1 tab by mouth BID prn back pain 2013 HYDROCODONE-ACETAMINOPHEN 5-325 MG TABS 142431 HYDROCODONE -ACETAMINOPHEN Inactive HYDRALAZINE HCL 50 MG ORAL TABS TWO BY MOUTH THREE TIMES DAILY HYDRALAZINE HCL 50 MG ORAL TABS 457372 HYDRALAZINE HCL Inactive ZITHROMAX 250 MG TAB 2 po today, then 1 po q days 2-5 ZITHROMAX 250 MG TAB 0737809 AZITHROMYCIN Inactive TERBINAFINE HCL 250 MG TABS 1 tab po qday for foot infection 2014 TERBINAFINE HCL 250 MG TABS 791265 TERBINAFINE HCL Inactive KEFLEX 500 MG CAP 1 po TID x 10 days KEFLEX 500 MG CAP 246571 CEPHALEXIN Inactive BACTRIM DS 800-160 MG TAB 1 tab by mouth twice daily BACTRIM DS 800-160 MG TAB 483614 TRIMETHOPRIM-SULFAMETHOXAZOLE Inactive Advance Directives Directive Description Start [...] Acid - Chemistry sodium, serum 139 mmol/L 827-295 3037/04/22 carbon dioxide, venous blood 29.4 mmol/L 21.0-32.0 [...] to Follow Negative Lab Report: VITAMIN D, 25-HYDROXY/35813 - Chemistry vitamin D 25-hydroxy, serum 23 ng/mL 30-100 Encounters Code Encounter Date Provider Facility CPT-80720 Level 3 Est. Patient 09:16:37 CDT Robbie Busby MD [facility] CPT-41318 Level 3 Est. Patient 19:38:43 CDT Robbie Busby MD [facility] CPT-83827 Level 3 Est. Patient 11:53:38 CDT Robbie Busby MD [facility] CPT-69152 Level 4 Est. Patient 12:52:22 CDT Rober Rodríguez APRN [facility] CPT-86254 Level 4 Est. Patient 22:55:17 CDT Robbie Busby MD [facility] CPT-46720 Level 3 Est. Patient 12:38:24 CDT Desmond Diaz DO [facility] CPT-37724 Level 4 Est. 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 Patient 14:50:10 CDT Robbie Busby MD [facility] CPT-66388 Level 4 Est. Patient 23:30:43 CDT Robbie Busby MD [facility] CPT-24704 Level 4 Est. Patient 10:30:43 CDT Robbie Busby MD [facility] CPT-77974 Level 3 Est. Patient 17:08:12 CDT Alex ALVAREZ [facility] CPT-80313 Level 4 Est. Patient 17:51:38 CDT Robbie Busby MD [facility] CPT-06664 Level 4 Est. Patient 14:00:21 CDT Robbie Busby MD [facility] CPT-66379 Level 4 Est. Patient 12:46:48 CDT Robbie Busby MD [facility] CPT-29955 Level 4 Est. Patient 13:34:33 CDT Robbie Busby MD [facility] CPT-40650 Level 4 Est. Patient 16:58:28 CDT Robbie Busby MD [facility] CPT-66462 Level 3 Est. Patient 19:36:[address] [facility] CPT-20349 Level 3 Est. Patient 12:58:15 CDT Robbie Busby MD [facility] Procedures Code Procedure Name Date Entry Date Standard Description CPT-33766 Wound Culture - LAB USE ONLY 14:00:21 CDT CPT-I/D I/D Abscess 09:16:37 CDT CPT-40959 Venipuncture Draw Fee 15:20:23 CDT CPT-19681 Microalbumin - LAB USE ONLY 16:02:19 CDT CPT-33140 CBC - LAB USE ONLY 16:02:19 CDT CPT-36020 Venipuncture Draw Fee 16:02:19 CDT CPT-G0438 Initial Annual Wellness Exam 08:10:28 CDT CPT-15602 Venipuncture Draw Fee 13:07:17 CDT CPT-G0008 Administration of Influenza Virus Vaccine 16:09:59 CDT CPT-55850 Fluzone Quadrivalent Intramuscular Suspension 0.5 ML 16: 09:59 CDT CPT-50216 Spec Collection and Handling Fee 15:05:50 CDT
--- OUTSIDE RECORDS SUMMARY | 2018-04-18 10:54 | XMS REPORT | Clinical Summary ---
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 Desmond Diaz DO Other malignant secondary hypertension Tachycardia 785.0 Active Rober Rodríguez SALES OFFICE COORDINATOR Tachycardia, unspecified Insect bite, infected 919.5 Resolved Desmond Diaz DO Insect bite, nonvenomous, of other, multiple, and unspecified sites, infected Abscess, skin 682.9 Resolved Desmond Diaz DO Cellulitis and abscess of unspecified sites URI 465.9 Resolved Desmond Diaz DO Acute upper respiratory infections of unspecified site Hypertension 401.9 Active Rober Rodríguez SALES OFFICE COORDINATOR Unspecified essential hypertension Sinusitis - acute [...] Hypogonadism, low testosterone 257.2 Active Erin Mai SALES OFFICE COORDINATOR Other testicular hypofunction Low back pain, [...] Busby MD Body Mass Index 36.0-36.9, adult Low back pain, acute ICD-724.2 Inactive Emily Atwood G[employer] CLUB MANAGER Low back pain, chronic ICD-724.2 Inactive Emily Atwood G[employer] CLUB MANAGER Bronchitis, acute ICD-466.0 Inactive Emily Atwood G[employer] CLUB MANAGER Onychomycosis, toenails ICD-110.1 Inactive Emily Atwood G[employer] CLUB MANAGER Dizziness ICD-780.4 Inactive Emily Atwood G[employer] CLUB MANAGER 2017 Folliculitis ICD-704.8 Inactive Emily Atwood G[employer] CLUB MANAGER Pharyngitis-Acute ICD-462 Inactive Emily Atwood G[employer] CLUB MANAGER Fatigue ICD-780.79 Inactive Emily Atwood G[employer] CLUB MANAGER 09/20 Hypertension, secondary, malignant ICD-405.09 Inactive Emily Atwood G[employer] CLUB MANAGER Insect bite, infected ICD-919.5 Inactive Emily Atwood GUN CLUB MANAGER Abscess, skin ICD-682.9 Inactive Emily Atwood GUN CLUB MANAGER URI ICD-465.9 Inactive Emily Atwood GUN CLUB MANAGER Sinusitis - acute ICD-461.9 Inactive Emily Atwood G[employer] CLUB MANAGER Acute confusion ICD-293.0 Inactive Emily Atwood G[employer] CLUB MANAGER Headache ICD-784.0 Inactive Emily Atwood G[employer] CLUB MANAGER 09/20 Back pain ICD-724.5 Inactive Emily Atwood G[employer] CLUB MANAGER 2017 Rib pain, right sided ICD-786.50 Inactive Emily Atwood G[employer] CLUB MANAGER Myalgias ICD-729.1 Inactive Emily Atwood G[employer] CLUB MANAGER 09/20 URI ICD-465.9 Inactive Emily Atwood G[employer] CLUB MANAGER Bronchitis-Acute ICD-466.0 Inactive Desmond Diaz DO Sinusitis ICD-461.9 Inactive Emily Rai CISSE 2017 Medication List Medication Instructions Start Date Stop Date Generic Name NDC Status Provider Patient Instruction MONTELUKAST SODIUM 10 MG ORAL TABLET 1 tab po daily for allergies MONTELUKAST SODIUM 32563572413 Active JONATHAN Moncada Active IMDUR 60 MG ORAL TABLET EXTENDED RELEASE 24 HOUR 1 po q day ISOSORBIDE MONONITRATE 19889329200 Active Emma Hernandez Active METOPROLOL SUCCINATE ER 200 MG ORAL TABLET EXTENDED RELEASE 24 HOUR take 1 tab po qday for high blood pressure and rapid pulse METOPROLOL SUCCINATE 34790323673 Active Robbie Busby MD Active [id number] 0.3 MG/24HR TRANSDERMAL PATCH WEEKLY apply 2 patches q week for HTN CLONIDINE HCL 76108732474 No Longer Active Robbie Busby MD Active IMDUR 60 MG ORAL TABLET EXTENDED RELEASE 24 HOUR take 1 tab po qday for blood pressure ISOSORBIDE MONONITRATE 92402105882 No Longer Active Robbie Busby MD Active TEMAZEPAM 15 MG ORAL CAPSULE 1 TAB PO Q HS TEMAZEPAM 29525677657 No Longer Active Robbie Busby MD Active TOPIRAMATE 50 MG ORAL TABLET 1 po BID for migraines TOPIRAMATE 52310530059 No Longer Active Robbie Busby MD Active CYCLOBENZAPRINE HCL 10 MG ORAL TABLET 1 tablet by mouth three times daily as needed for muscle spasm/pain CYCLOBENZAPRINE HCL 41240188658 No Longer Active Robbie Busby MD Active TOPROL XL 200 MG ORAL TABLET EXTENDED RELEASE 24 HOUR Take one by mouth daily METOPROLOL SUCCINATE 36754894278 No Longer Active Robbie Busby MD Active METFORMIN HCL 500 MG ORAL TABLET 1 tablet by mouth daily for diabetes type 2 METFORMIN HCL 94966503753 Active Robbie Busby MD Active SINGULAIR 10 MG ORAL TABLET 1 po qday for allergies. MONTELUKAST SODIUM 32335058808 No Longer Active Robbie Busby MD Active PREDNISONE 20 MG ORAL TABLET two tabs by mouth today, then one tab by mouth days two and three PREDNISONE 18705421821 No Longer Active Robbie Busby MD Active AZITHROMYCIN 250 MG ORAL TABLET 2 po qd x 1 day, then 1 po qd x 4 days 09/20 AZITHROMYCIN 51811080906 No Longer Active Desmond Diaz DO Active TOPIRAMATE 50 MG ORAL TABLET take 1 tab po BID for migraines. TOPIRAMATE 60575970337 No Longer Active Desmond Diaz DO Active CYCLOBENZAPRINE HCL 10 MG ORAL TABLET 1 po TID PRN muscle spasm/pain for 10 days CYCLOBENZAPRINE HCL 86909323651 No Longer Active Desmond Diaz DO Active GUAIFENESIN ER 600 MG ORAL TABLET EXTENDED RELEASE 12 HOUR 1 tab po q am 2016 GUAIFENESIN 61840942490 No Longer Active Robbie Busby MD Active DIVALPROEX SODIUM ER 500 MG ORAL TABLET EXTENDED RELEASE 24 HOUR Once daily DIVALPROEX SODIUM 75952351772 Active Robbie Busby MD Active DEPO-TESTOSTERONE 200 MG/ML INTRAMUSCULAR SOLUTION 1 IM Injections every 2 weeks for low testosterone TESTOSTERONE CYPIONATE 45014427598 Active Zulema Blank LPN Active FLUTICASONE PROPIONATE 50 MCG/ACT NASAL SUSPENSION 2 sprays per nostril bid for 1 week, then 1 spray bid FLUTICASONE PROPIONATE 56096122009 Active Rober Rodríguez APRN Active HYDRALAZINE HCL 25 MG ORAL TABLET Take 1 tab BID. HYDRALAZINE HCL 18243327146 Active Rober Rodríguez SALES OFFICE COORDINATOR Active VITAMIN D3 17384 UNIT ORAL TABLET 2 po weekly CHOLECALCIFEROL 98534615957 Active Robbie Busby MD Active OXYCODONE HCL ER 10 MG ORAL TABLET ER 12 HOUR ABUSE-DETERRENT 1 tab po 3 times qd. OXYCODONE HCL 88876765872 Active Robbie Busby MD Active NITROSTAT 0.4 MG SUBLINGUAL TABLET SUBLINGUAL PRN NITROGLYCERIN 34418247301 No Longer Active Robbie Busby MD Active LORATADINE 10 MG ORAL TABLET 1 tablet by mouth daily for congestion and allergies. LORATADINE 59811328720 No Longer Active Robbie Busby MD Active FLONASE 50 MCG/ACT NASAL SUSPENSION 1 spray each nostril twice daily for allergies and runny nose FLUTICASONE PROPIONATE 19252099717 No Longer Active Robbie Busby MD Active FIORICET 50-300-40 MG ORAL CAPSULE take 1 tab po qday prn migraines. OLKRUIVULK-ASAO-LWJQRNET 40278241713 No Longer Active Robbie Busby MD Active VITAMIN D3 81672 UNIT ORAL CAPSULE 2 CAPS PO WEEKLY CHOLECALCIFEROL 23336718890 No Longer Active Robbie Busby MD Active CYCLOBENZAPRINE HCL 10 MG ORAL TABLET 1 tablet by mouth three times daily as needed for muscle spasm/pain for 10 days CYCLOBENZAPRINE HCL 68891208497 No Longer Active Robbie Busby MD Active PREDNISONE 20 MG ORAL TABLET take 3 tabs daily for 3 days, 2 tabs daily for 3 days, 1 tab daily for 3 days, 1/2 tab daily for 4 days PREDNISONE 25079211351 No Longer Active Erin Arell SALES OFFICE COORDINATOR Active CLONIDINE HCL 0.2 MG ORAL TABLET 1 TAB BY MOUTH EVERY 8 HOURS CLONIDINE HCL 99054489777 No Longer Active Erin Arell SALES OFFICE COORDINATOR Active MECLIZINE HCL 25 MG ORAL TABLET one 4 times a day as needed for dizziness MECLIZINE HCL 77840178210 No Longer Active Erin Arell SALES OFFICE COORDINATOR Active SPIRONOLACTONE 25 MG ORAL TABLET 4 tablets by mouth daily SPIRONOLACTONE 88844624258 No Longer Active Erin Arell SALES OFFICE COORDINATOR Active LEVAQUIN 500 MG ORAL TABLET 1 tablet by mouth daily for 7 days LEVOFLOXACIN 60075393153 No Longer Active Erin Arell SALES OFFICE COORDINATOR Active BACTRIM DS 800-160 MG ORAL TABLET 1 tab by mouth twice daily 2015 TRIMETHOPRIM-SULFAMETHOXAZOLE 46570651492 No Longer Active Robbie Busby MD Active HYDRALAZINE HCL 50 MG ORAL TABLET TWO BY MOUTH THREE TIMES DAILY HYDRALAZINE HCL 47209869707 No Longer Active 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 SALES OFFICE COORDINATOR Active HYDROCODONE-ACETAMINOPHEN 5-325 MG ORAL TABLET 1 tab by mouth BID prn back pain HYDROCODONE-ACETAMINOPHEN 70540008072 No Longer Active 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 SALES OFFICE COORDINATOR Active HYDROCHLOROTHIAZIDE TABLET Take one by mouth daily HYDROCHLOROTHIAZIDE TABS 22082234137 No Longer Active 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 SALES OFFICE COORDINATOR Active LAMISIL 125 MG ORAL PACKET 1 TAB PO DAILY TERBINAFINE HCL 27812945803 No Longer Active 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 SALES OFFICE COORDINATOR Active TRILEPTAL 150 MG ORAL TABLET 1 TAB PO Q HS OXCARBAZEPINE 66606273006 No Longer Active 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 SALES OFFICE COORDINATOR Active BETADINE 10 % EXTERNAL SOLUTION 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 07/29 POVIDONE-IODINE 00599313489 No Longer Active Rober Rodríguez APRN Active NYSTATIN 752129 UNIT/ML MOUTH/THROAT SUSPENSION 5mL po QID x 10 days NYSTATIN 83405879082 No Longer Active Erin Mai APRN Active PREDNISONE 20 MG ORAL TABLET 1 tablet twice daily for 2 days, then 1 tablet once daily for 2 days PREDNISONE 48224373761 No Longer Active Robbie Busby MD Active CEFDINIR 300 MG ORAL CAPSULE Take 1 cap po bid x 10 days CEFDINIR 81352400255 No Longer Active Robbie Busby MD Active AMLODIPINE BESYLATE 10 MG ORAL TABLET 1 tablet by mouth daily AMLODIPINE BESYLATE 40536448618 Active Robbie Busby MD Active CARVEDILOL 25 MG ORAL TABLET 1 & 1/2 TAB po BID CARVEDILOL 33105398100 Active Robbie Busby MD Active NEXIUM 40 MG ORAL CAPSULE DELAYED RELEASE 1 cap by mouth daily ESOMEPRAZOLE MAGNESIUM 15706036783 Active Robbie Busby MD Active PROTONIX 40 MG INTRAVENOUS SOLUTION RECONSTITUTED 1 po qday for acid reflux PANTOPRAZOLE SODIUM 96370646874 No Longer Active Gali Raida Active KEFLEX 500 MG ORAL CAPSULE 1 po TID x 10 days CEPHALEXIN 21820520581 No Longer Active Robbie Busby MD Active ALPRAZOLAM 2 MG ORAL TABLET 1 TAB PO BID ALPRAZOLAM 84993199366 Active Robbie Busby MD Active FENOFIBRATE 145 MG ORAL TABLET Take one by mouth daily FENOFIBRATE 69422067148 No Longer Active Robbie Busby MD Active SPIRONOLACTONE 50 MG ORAL TABLET 1 tablet by mouth twice a day SPIRONOLACTONE 71257792410 No Longer Active Robbie Busby MD Active HYDRALAZINE HCL 25 MG ORAL TABLET 1 tablet by mouth tid for hypertension 2013 HYDRALAZINE HCL 94708440348 No Longer Active Robbie Busby MD Active VIIBRYD 40 MG ORAL TABLET take 1 tab po qday for depression. 2014 VILAZODONE HCL 20360552978 No Longer Active Robbie Busby MD Active TERBINAFINE HCL 250 MG ORAL TABLET 1 tab po qday for foot infection TERBINAFINE HCL 78330499117 No Longer Active Robbie Busby MD Active GABAPENTIN 300 MG ORAL CAPSULE 1 po q hs for nerve pain GABAPENTIN 65938173473 Active Robbie Busby MD Active CHERATUSSIN AC 100-10 MG/5ML ORAL SOLUTION 7.5 mL PO q 4-6 hrs PRN cough 2014 GUAIFENESIN-CODEINE 62530243072 No Longer Active Robbie Busby MD Active AZITHROMYCIN 250 MG ORAL TABLET 2 tablets PO today---then, 1 tablet PO daily x 4 more days (and 1 optional refill) AZITHROMYCIN 29820382015 No Longer Active Robbie Busby MD Active NORVASC 10 MG ORAL TABLET 1 tablet by mouth daily AMLODIPINE BESYLATE 95520640854 No Longer Active Alex ALVAREZ Active ISOSORBIDE DINITRATE 30 MG ORAL TABLET Take one by mouth daily ISOSORBIDE DINITRATE 67735290413 No Longer Active Robbie Busby MD Active VIIBRYD 40 MG ORAL TABLET 1 TA B PO DAILY VILAZODONE HCL 30103989857 Active Robbie Busby MD Active ZITHROMAX 250 MG ORAL TABLET 2 po today, then 1 po q days 2-5 AZITHROMYCIN 80967400666 No Longer Active Robbie Busby MD Active DOXAZOSIN MESYLATE 4 MG ORAL TABLET Take one by mouth daily DOXAZOSIN MESYLATE 13069237250 Active Robbie Busby MD Active VENLAFAXINE HCL ER 150 MG ORAL TABLET EXTENDED RELEASE 24 HOUR Take one by mouth daily VENLAFAXINE HCL 34207379722 Active Robbie Busby MD Active LIPITOR 40 MG ORAL TABLET Take one by mouth daily ATORVASTATIN CALCIUM 32892785997 Active Robbie Busby MD Active ISOSORBIDE DINITRATE 30 MG ORAL TABLET Take one by mouth daily ISOSORBIDE DINITRATE 30 MG ORAL TABLET 655555 ISOSORBIDE DINITRATE Inactive NORVASC 10 MG ORAL TABLET 1 tablet by mouth daily NORVASC 10 MG ORAL TABLET 297005 AMLODIPINE BESYLATE Inactive AZITHROMYCIN 250 MG ORAL TABLET 2 tablets PO today---then, 1 tablet PO daily x 4 more days (and 1 optional refill) AZITHROMYCIN 250 MG ORAL TABLET 490944 AZITHROMYCIN Inactive CHERATUSSIN AC 100-10 MG/5ML ORAL SOLUTION 7.5 mL PO q 4-6 hrs PRN cough 2014 CHERATUSSIN AC 100-10 MG/5ML ORAL SOLUTION 777933 GUAIFENESIN-CODEINE Inactive VIIBRYD 40 MG ORAL TABLET take 1 tab po qday for depression. 2014 VIIBRYD 40 MG ORAL TABLET VILAZODONE HCL Inactive HYDRALAZINE HCL 25 MG ORAL TABLET 1 tablet by mouth tid for hypertension 2013 HYDRALAZINE HCL 25 MG ORAL TABLET 431875 HYDRALAZINE HCL Inactive SPIRONOLACTONE 50 MG ORAL TABLET 1 tablet by mouth twice a day SPIRONOLACTONE 50 MG ORAL TABLET 007364 SPIRONOLACTONE Inactive FENOFIBRATE 145 MG ORAL TABLET Take one by mouth daily FENOFIBRATE 145 MG ORAL TABLET 537339 FENOFIBRATE Inactive PROTONIX 40 MG INTRAVENOUS SOLUTION RECONSTITUTED 1 po qday for acid reflux PROTONIX 40 MG INTRAVENOUS SOLUTION RECONSTITUTED 186899 PANTOPRAZOLE SODIUM Inactive CEFDINIR 300 MG ORAL CAPSULE Take 1 cap po bid x 10 days CEFDINIR 300 MG ORAL CAPSULE 654012 CEFDINIR Inactive PREDNISONE 20 MG ORAL TABLET 1 tablet twice daily for 2 days, then 1 tablet once daily for 2 days PREDNISONE 20 MG ORAL TABLET 466077 PREDNISONE Inactive NYSTATIN 894749 UNIT/ML MOUTH/THROAT SUSPENSION 5mL po QID x 10 days NYSTATIN 256422 UNIT/ML MOUTH/THROAT SUSPENSION 599131 NYSTATIN Inactive BETADINE 10 % EXTERNAL SOLUTION 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 07/29 BETADINE 10 % EXTERNAL SOLUTION 5975945 POVIDONE-IODINE Inactive TRILEPTAL 150 MG ORAL TABLET 1 TAB PO Q HS TRILEPTAL 150 MG ORAL TABLET 128306 OXCARBAZEPINE Inactive LAMISIL 125 MG ORAL PACKET 1 TAB PO DAILY LAMISIL 125 MG ORAL PACKET TERBINAFINE HCL Inactive HYDROCHLOROTHIAZIDE TABLET Take one by mouth daily HYDROCHLOROTHIAZIDE TABLET HYDROCHLOROTHIAZIDE TABS Inactive HYDROCODONE-ACETAMINOPHEN 5-325 MG ORAL TABLET 1 tab by mouth BID prn back pain HYDROCODONE-ACETAMINOPHEN 5-325 MG ORAL TABLET 504370 HYDROCODONE-ACETAMINOPHEN Inactive HYDRALAZINE HCL 50 MG ORAL TABLET TWO BY MOUTH THREE TIMES DAILY HYDRALAZINE HCL 50 MG ORAL TABLET 050479 HYDRALAZINE HCL Inactive LEVAQUIN 500 MG ORAL TABLET 1 tablet by mouth daily for 7 days LEVAQUIN 500 MG ORAL TABLET 372044 LEVOFLOXACIN Inactive SPIRONOLACTONE 25 MG ORAL TABLET 4 tablets by mouth daily SPIRONOLACTONE 25 MG ORAL TABLET 766170 SPIRONOLACTONE Inactive MECLIZINE HCL 25 MG ORAL TABLET one 4 times a day as needed for dizziness MECLIZINE HCL 25 MG ORAL TABLET 429586 MECLIZINE HCL Inactive CLONIDINE HCL 0.2 MG ORAL TABLET 1 TAB BY MOUTH EVERY 8 HOURS CLONIDINE HCL 0.2 MG ORAL TABLET 130563 CLONIDINE HCL Inactive CYCLOBENZAPRINE HCL 10 MG ORAL TABLET 1 tablet by mouth three times daily as needed for muscle spasm/pain for 10 days CYCLOBENZAPRINE HCL 10 MG ORAL TABLET 948700 CYCLOBENZAPRINE HCL Inactive VITAMIN D3 56218 UNIT ORAL CAPSULE 2 CAPS PO WEEKLY VITAMIN D3 79601 UNIT ORAL CAPSULE CHOLECALCIFEROL Inactive FIORICET 50-300-40 MG ORAL CAPSULE take 1 tab po qday prn migraines. FIORICET 50-300-40 MG ORAL CAPSULE 480767 BUTALBITAL-APAP- CAFFEINE Inactive FLONASE 50 MCG/ACT NASAL SUSPENSION 1 spray each nostril twice daily for allergies and runny nose FLONASE 50 MCG/ACT NASAL SUSPENSION 9281193 FLUTICASONE PROPIONATE Inactive LORATADINE 10 MG ORAL TABLET 1 tablet by mouth daily for congestion and allergies. LORATADINE 10 MG ORAL TABLET 543621 LORATADINE Inactive NITROSTAT 0.4 MG SUBLINGUAL TABLET SUBLINGUAL PRN NITROSTAT 0.4 MG SUBLINGUAL TABLET SUBLINGUAL 965237 NITROGLYCERIN Inactive GUAIFENESIN ER 600 MG ORAL TABLET EXTENDED RELEASE 12 HOUR 1 tab po q am 2016 GUAIFENESIN ER 600 MG ORAL TABLET EXTENDED RELEASE 12 HOUR GUAIFENESIN Inactive CYCLOBENZAPRINE HCL 10 MG ORAL TABLET 1 po TID PRN muscle spasm/pain for 10 days CYCLOBENZAPRINE HCL 10 MG ORAL TABLET 854836 CYCLOBENZAPRINE HCL Inactive TOPIRAMATE 50 MG ORAL TABLET take 1 tab po BID for migraines. TOPIRAMATE 50 MG ORAL TABLET 194116 TOPIRAMATE Inactive PREDNISONE 20 MG ORAL TABLET two tabs by mouth today, then one tab by mouth days two and three PREDNISONE 20 MG ORAL TABLET 723095 PREDNISONE Inactive TOPROL XL 200 MG ORAL TABLET EXTENDED RELEASE 24 HOUR Take one by mouth daily TOPROL XL 200 MG ORAL TABLET EXTENDED RELEASE 24 HOUR METOPROLOL SUCCINATE Inactive CYCLOBENZAPRINE HCL 10 MG ORAL TABLET 1 tablet by mouth three times daily as needed for muscle spasm/pain CYCLOBENZAPRINE HCL 10 MG ORAL TABLET 808028 CYCLOBENZAPRINE HCL Inactive TOPIRAMATE 50 MG ORAL TABLET 1 po BID for migraines TOPIRAMATE 50 MG ORAL TABLET 132809 TOPIRAMATE Inactive TEMAZEPAM 15 MG ORAL CAPSULE 1 TAB PO Q HS TEMAZEPAM 15 MG ORAL CAPSULE 905968 TEMAZEPAM Inactive IMDUR 60 MG ORAL TABLET EXTENDED RELEASE 24 HOUR take 1 tab po qday for blood pressure IMDUR 60 MG ORAL TABLET EXTENDED RELEASE 24 HOUR ISOSORBIDE MONONITRATE Inactive [id number]-TYI-9 0.3 MG/24HR TRANSDERMAL PATCH WEEKLY apply 2 patches q week for HTN [id number]-7 0.3 MG/24HR TRANSDERMAL PATCH WEEKLY 327417 CLONIDINE HCL Inactive ZITHROMAX 250 MG ORAL TABLET 2 po today, then 1 po q days 2-5 ZITHROMAX 250 MG ORAL TABLET 208414 AZITHROMYCIN Inactive TERBINAFINE HCL 250 MG ORAL TABLET 1 tab po qday for foot infection TERBINAFINE HCL 250 MG ORAL TABLET 813140 TERBINAFINE HCL Inactive KEFLEX 500 MG ORAL CAPSULE 1 po TID x 10 days KEFLEX 500 MG ORAL CAPSULE 777070 CEPHALEXIN Inactive BACTRIM DS 800-160 MG ORAL TABLET 1 tab by mouth twice daily 2015 BACTRIM DS 800-160 MG ORAL TABLET 493997 TRIMETHOPRIM- SULFAMETHOXAZOLE Inactive PREDNISONE 20 MG ORAL TABLET take 3 tabs daily for 3 days, 2 tabs daily for 3 days, 1 tab daily for 3 days, 1/2 tab daily for 4 days PREDNISONE 20 MG ORAL TABLET 890351 PREDNISONE Inactive AZITHROMYCIN 250 MG ORAL TABLET 2 po qd x 1 day, then 1 po qd x 4 days 09/20 AZITHROMYCIN 250 MG ORAL TABLET 587207 AZITHROMYCIN Inactive SINGULAIR 10 MG ORAL TABLET 1 po qday for allergies. SINGULAIR 10 MG ORAL TABLET 782271 MONTELUKAST SODIUM Inactive Advance Directives Directive Description [...] AUTO - Chemistry sodium, serum 142 mmol/L 004-001 2692/07/17 carbon dioxide, venous blood 28.2 mmol/L 21.0-32.0 [...] Panel, CKI, UADIP W/MICRO, AUTO - Hematology erythrocyte (RBC) count 4.83 10^6/MM^3 10*6/mm3 4.50-6.50 hemoglobin, blood 14.7 g/dL 14.0-18.0 hematocrit, blood 43.8 % 40.0-54.0 mean corpuscular volume, RBC 91 fL 80-97 mean corpuscular hemoglobin, RBC 30.4 pg 27.0-31.2 mean corpuscular hemoglobin concentration, RBC 33.6 G/DL % 31.8- 35.4 red blood cell distribution width 13.6 % 11.6-14.8 platelet count 239 10^3/MM^3 10*3/mm3 802-765 4690/07/17 lymphocytes as percent of blood leukocytes 35.6 % 20.0-40.0 monocytes as percent of blood leukocytes 6.8 % 2.0-10.0 neutrophils as percent of blood leukocytes 55.7 % 40.0-80.0 leukocyte count, blood 10.9 10^3/MM^3 10*3/mm3 4.6-10.2 Lab Report: CBC W/DIFF, [...] Panel - Chemistry sodium, serum 141 mmol/L 013-445 6492/02/13 carbon dioxide, venous blood 23.9 mmol/L 21.0-32.0 [...] Report: HGBA1C, Basic Metabolic Panel - Chemistry chloride, serum 103 mmol/L 98-107 carbon dioxide, venous blood 26.9 mmol/L 21.0-32.0 blood glucose 106 mg/dL 65-110 calcium, serum 9.0 mg/dL 8.5-10.1 urea nitrogen, blood 20 mg/dL 7-18 creatinine, serum 1.46 mg/dL 0.60-1.30 hemoglobin A1C, blood, as % of total hemoglobin 6.9 % 4.3-6.0 sodium, serum 139 mmol/L 440-363 6838/01/04 potassium, serum 3.9 mmol/L 3.5-5.2 Lab Report: MICROALB/CREAT W/RATIO - Chemistry albumin/creatinine ratio, urine <30 mg/g Normal mg/g mg/g{creat} 0-29 Lab Report: MICROALB/CREAT W/RATIO - Lab microalbumin, urine 30 mg/L 0-19 Lab Report: Prostatic Specific Ag - Chemistry prostate specific antigen 1.80 ng/mL 0.00-4.00 Lab Report: VITAMIN D, 25-HYDROXY/04187 - Chemistry vitamin D 25-hydroxy, serum 25 ng/mL 30-100 Encounters Code Encounter Date Provider Facility CPT-67221 Level 3 Est. Patient 16:04:17 CDT Robbie Busby MD [facility] CPT-84665 Level 4 Est. Patient 09:50:01 COATING AND BAKING OPERATOR Robbie Busby MD [facility] CPT-15512 Level 4 Est. Patient 09:42:08 COATING AND BAKING OPERATOR Robbie Busby MD [facility] CPT-77348 Level 4 Est. Patient 13:07:39 COATING AND BAKING OPERATOR Robbie Busby MD [facility] CPT-89878 Level 4 Est. Patient 15:23:44 COATING AND BAKING OPERATOR Desmond Diaz DO [facility] CPT-69905 Level 3 Est. Patient 15:40:49 CDT Robbie Busby MD [facility] CPT-33717 Level 4 Est. Patient 15:18:19 CDT Robbie Busby MD [facility] CPT-63879 Level 3 Est. Patient 09:00:37 CDT Rober Rodolfoneha [facility] CPT-27896 Level 3 Est. Patient 16:07:10 CDT Robbie Busby MD [facility] CPT-66644 Level 4 Est. Patient 11:56:16 CDT Erin Miguelzane [facility] CPT-34797 Level 3 Est. Patient 17:48:02 CDT Robbie Busby MD [facility] CPT-74675 Level 4 Est. Patient 12:00:49 COATING AND BAKING OPERATOR Rober Rodríguez [facility] CPT-53800 Level 3 Est. Patient 09:16:37 CDT Robbie Busby MD [facility] CPT-52014 Level 3 Est. Patient 19:38:43 CDT Robbie Busby MD [facility] CPT-51552 Level 3 Est. Patient 11:53:38 CDT Robbie Busby MD [facility] CPT-30315 Level 4 Est. Patient 12:52:22 CDT Rober Rodríguez [facility] CPT-71586 Level 4 Est. Patient 22:55:17 CDT Robbie Busby MD [facility] CPT-69986 Level 3 Est. Patient 12:38:24 CDT Desmond Diaz DO [facility] CPT-59720 Level 4 Est. Patient 11:25:03 COATING AND BAKING OPERATOR Robbie Busby MD [facility] CPT-61882 Level 4 Est. Patient 14:50:10 CDT Robbie Busby MD [facility] CPT-68581 Level 4 Est. Patient 23:30:43 CDT Robbie Busby MD [facility] CPT-04924 Level 4 Est. Patient 10:30:43 CDT Robbie Busby MD [facility] CPT-84602 Level 3 Est. Patient 17:08:12 CDT Alex ALVAREZ [facility] CPT-90101 Level 4 Est. Patient 17:51:38 CDT Robbie Busby MD [facility] CPT-98081 Level 4 Est. Patient 14:00:21 CDT Robbie Busby MD [facility] CPT-32689 Level 4 Est. Patient 12:46:48 CDT Robbie Busby MD [facility] CPT-63035 Level 4 Est. Patient 13:34:33 CDT Robbie Busby MD [facility] CPT-19958 Level 4 Est. Patient 16:58:28 CDT Robbie Busby MD [facility] CPT-90838 Level 3 Est. Patient 19:36:53 CDT Alex Shaw [facility] CPT-82564 Level 3 Est. Patient 12:58:15 CDT Robbie Busby MD [facility] Procedures Code Procedure Name Date Entry Date Standard Description CPT-J1100 Decadron 8mg (Dexamethasone) 16:04:17 CDT CPT-J1040 Depo Medrol 80 mg (Methyl Prednisolone Acetate) 16:04: 17 CDT CPT-J1071 Depo Testosterone 200mg 08:56:46 CDT CPT-32098 Abx/Therapy Injection 08:56:45 CDT CPT-J1071 Depo Testosterone 200mg 08:26:27 CDT CPT-28313 Abx/Therapy Injection 08:26:27 CDT CPT-J1071 Depo Testosterone 200mg 10:27:10 CDT CPT-69924 Abx/Therapy Injection 10:27:10 CDT CPT-J1071 Depo Testosterone 200mg 16:10:29 COATING AND BAKING OPERATOR CPT-56449 Abx/Therapy Injection 16:10:29 COATING AND BAKING OPERATOR CPT-J1071 Depo Testosterone 200mg 16:13:47 COATING AND BAKING OPERATOR CPT-26303 Abx/Therapy Injection 16:13:46 COATING AND BAKING OPERATOR CPT-J1071 Depo Testosterone 200mg 15:33:58 COATING AND BAKING OPERATOR CPT-79965 Abx/Therapy Injection 15:33:58 COATING AND BAKING OPERATOR CPT-J1071 Depo Testosterone 200mg 09:38:36 COATING AND BAKING OPERATOR CPT-30600 Abx/Therapy Injection 09:38:36 COATING AND BAKING OPERATOR CPT-J1071 Depo Testosterone 200mg 10:22:56 COATING AND BAKING OPERATOR CPT-33081 Abx/Therapy Injection 10:22:56 COATING AND BAKING OPERATOR CPT-J1071 Depo Testosterone 200mg 15:40:23 CDT CPT-65842 Abx/Therapy Injection 15:40:23 CDT CPT-J1071 Depo Testosterone 200mg 14:20:43 CDT CPT-65295 Abx/Therapy Injection 14:20:43 CDT CPT-J1071 Depo Testosterone 200mg 14:17:22 CDT CPT-37680 Abx/Therapy Injection 14:17:22 CDT CPT-J1071 Depo Testosterone 200mg 09:03:53 CDT CPT-30154 Abx/Therapy Injection 09:03:53 CDT CPT-G0439 Subsequent Annual Wellness Exam 16:47:44 CDT CPT-J1071 Depo Testosterone 200mg 09:06:28 CDT CPT-88552 Abx/Therapy Injection 09:06:28 CDT CPT-J1071 Depo Testosterone 200mg 08:30:01 CDT CPT-89542 Abx/Therapy Injection 08:30:01 CDT CPT-J1071 Depo Testosterone 200mg 08:24:00 CDT CPT-24649 Abx/Therapy Injection 08:24:00 CDT CPT-22698 Venipuncture Draw Fee 14:39:06 CDT CPT-66211 Ribs unilateral 2V - XRAY USE ONLY 12:10:11 CDT CPT-56981 First Vx - Ix admin for Medicare patients 16:32:53 CDT CPT-32794 Boostrix Intramuscular Suspension 5-2.5-18.5 16:32:53 CDT CPT-01535 TB Skin Test 11:42:28 CDT CPT-47548 Tdap 7yrs or > 11:42:28 CDT CPT-J0696 Rocephin 1000 mg (Ceftriaxone) 17:43:43 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 AND 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 CPT-J1040 Depo Medrol 80 mg (Methyl Prednisolone Acetate) 17:43: 43 COATING AND BAKING OPERATOR CPT-J1100 Decadron 8mg (Dexamethasone) 17:43:42 COATING AND BAKING OPERATOR CPT-18475 Abx/Therapy Injection 17:43:42 COATING AND BAKING OPERATOR CPT-65598 Abx/Therapy Injection 17:43:42 COATING AND BAKING OPERATOR CPT-J1040 Depo Medrol 80 mg (Methyl Prednisolone Acetate) 09:43: 34 COATING AND BAKING OPERATOR CPT-J1100 Decadron 8mg (Dexamethasone) 09:43:34 COATING AND BAKING OPERATOR CPT-J0696 Rocephin 1gm Inj Solr 09:43:34 COATING AND BAKING OPERATOR CPT-12176 Wound Culture - LAB USE ONLY 14:00:21 CDT CPT-I/D I/D Abscess 09:16:37 CDT CPT-69369 Venipuncture Draw Fee 15:20:23 CDT CPT-78486 Microalbumin - LAB USE ONLY 16:02:19 CDT CPT-66565 CBC - LAB USE ONLY 16:02:19 CDT CPT-99032 Venipuncture Draw Fee 16:02:19 CDT CPT-G0438 Initial Annual Wellness Exam 08:10:28 CDT CPT-03892 Venipuncture Draw Fee 13:07:17 CDT CPT-G0008 Administration of Influenza Virus Vaccine 16:09:59 CDT CPT-17248 Fluzone Quadrivalent Intramuscular Suspension 0.5 ML 16: 09:59 CDT CPT-27652 Spec Collection and Handling Fee 15:05:50 CDT
--- OUTSIDE RECORDS SUMMARY | 2018-04-18 10:55 | XMS REPORT | Clinical Summary ---
Author Author Admin, [facility] Organization [employer] Address Unknown Phone Unavailable Allergies, Adverse Reactions, [...] unspecified sites URI 465.9 Active Rober Rodríguez FITTER TACKER Acute upper respiratory infections of unspecified site [...] pain, chronic 724.2 Active Robbie Busby MD Lumba Medication List Medication Instructions Start Date Stop Date Generic Name NDC Status Provider Patient Instruction GUAIFENESIN 600 MG [id number] 1 tab po q am GUAIFENESIN 15641686310 No Longer Active Robbie Busby MD Active DIVALPROEX SODIUM ER 500 MG ORAL TABLET EXTENDED RELEASE 24 HOUR Once daily DIVALPROEX SODIUM 93808526311 Active Robbie Busby MD Active DEPO-TESTOSTERONE 200 MG/ML IM SOLN 1 IM Injections every 2 weeks for low testosterone TESTOSTERONE CYPIONATE 50650518917 Active Zulema Blank LPN Active CYCLOBENZAPRINE HCL 10 MG ORAL TABS 1 po TID PRN muscle spasm/pain for 10 days CYCLOBENZAPRINE HCL 93544823278 Active JONATHAN Moncada Active FLUTICASONE PROPIONATE 50 MCG/ACT SUSP 2 sprays per nostril bid for 1 week, then 1 spray bid FLUTICASONE PROPIONATE 96041916551 Active Jillina Franeha FITTER TACKER Active HYDRALAZINE HCL 25 MG ORAL TABS Take 1 tab BID. HYDRALAZINE HCL 39715592992 Active Jillina Anne FITTER TACKER Active VITAMIN D3 98172 UNIT ORAL TABS 2 po weekly CHOLECALCIFEROL 03148698188 Active Robbie Busby MD Active OXYCODONE HCL ER 10 MG ORAL T12A 1 tab po 3 times qd. OXYCODONE HCL 66020700578 Active Robbie Busby MD Active NITROSTAT 0.4 MG SUBL PRN NITROGLYCERIN 92881117376 No Longer Active Robbie Busby MD Active LORATADINE 10 MG TABS 1 tablet by mouth daily for congestion and allergies. LORATADINE 88803608845 No Longer Active Robbie Busby MD Active FLONASE 50 MCG/ACT SUSP 1 spray each nostril twice daily for allergies and runny nose FLUTICASONE PROPIONATE 38453331559 No Longer Active Robbie Busby MD Active FIORICET 50-300-40 MG ORAL CAPS take 1 tab po qday prn migraines. [id number] 32219583494 No Longer Active Robbie Busby MD Active VITAMIN D3 21004 UNIT CAPS 2 CAPS PO WEEKLY CHOLECALCIFEROL 92005445492 No Longer Active Robbie Busby MD Active CYCLOBENZAPRINE HCL 10 MG TABS 1 tablet by mouth three times daily as needed for muscle spasm/pain for 10 days CYCLOBENZAPRINE HCL 85725382231 No Longer Active Robbie Busby MD Active PREDNISONE 20 MG TAB take 3 tabs daily for 3 days, 2 tabs daily for 3 days, 1 tab daily for 3 days, 1/2 tab daily for 4 days PREDNISONE 71533084975 No Longer Active Erin Garsia APRN Active CLONIDINE HCL 0.2 MG ORAL TABS 1 TAB BY MOUTH EVERY 8 HOURS 12/29 CLONIDINE HCL 69966942652 No Longer Active Erin Garsia APRN Active MECLIZINE HCL 25 MG TAB one 4 times a day as needed for dizziness MECLIZINE HCL 41222906605 No Longer Active Erin Garsia APRN Active SPIRONOLACTONE 25 MG TAB 4 tablets by mouth daily SPIRONOLACTONE 63894242787 No Longer Active Erin Garsia APRN Active LEVAQUIN 500 MG TAB 1 tablet by mouth daily for 7 days LEVOFLOXACIN 04088013282 No Longer Active Erin Garsia APRN Active BACTRIM DS 800-160 MG TAB 1 tab by mouth twice daily TRIMETHOPRIM-SULFAMETHOXAZOLE 31839786891 No Longer Active Robbie Busby MD Active HYDRALAZINE HCL 50 MG ORAL TABS TWO BY MOUTH THREE TIMES DAILY HYDRALAZINE HCL 76407056887 No Longer Active Jillld Rodríguez APRN Active HYDROCODONE-ACETAMINOPHEN 5-325 MG TABS 1 tab by mouth BID prn back pain 2013 HYDROCODONE-ACETAMINOPHEN 63351615474 No Longer Active Jillina Zulemal FITTER TACKER Active HYDROCHLOROTHIAZIDE TABS Take one by mouth daily HYDROCHLOROTHIAZIDE TABS 21519353501 No Longer Active Jillina Frakierstenl FITTER TACKER Active LAMISIL 125 MG ORAL PACK 1 TAB PO DAILY TERBINAFINE HCL 05049440245 No Longer Active Jillina Frakierstenl FITTER TACKER Active TRILEPTAL 150 MG ORAL TABS 1 TAB PO Q HS OXCARBAZEPINE 91429583176 No Longer Active Jillina Frakierstenl FITTER TACKER Active BETADINE 10 % EXT SOLN 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 POVIDONE-IODINE 50798523263 No Longer Active Rober Rodríguez APRN Active NYSTATIN 437988 UNIT/ML M/T SUSP 5mL po QID x 10 days NYSTATIN 67479383279 No Longer Active Erin Garsia APRN Active PREDNISONE 20 MG TAB 1 tablet twice daily for 2 days, then 1 tablet once daily for 2 days PREDNISONE 71064290918 No Longer Active Robbie Busby MD Active CEFDINIR 300 MG ORAL CAPS Take 1 cap po bid x 10 days CEFDINIR 18595238889 No Longer Active Robbie Busby MD Active AMLODIPINE BESYLATE 10 MG TABS 1 tablet by mouth daily AMLODIPINE BESYLATE 23286127027 Active Robbie Busby MD Active CARVEDILOL 25 MG TABS 1 & 1/2 TAB po BID CARVEDILOL 95082234378 Active Robbie Busby MD Active NEXIUM 40 MG CPDR 1 cap by mouth daily ESOMEPRAZOLE MAGNESIUM 55680307961 Active Robbie Busby MD Active PROTONIX 40 MG SOLR 1 po qday for acid reflux PANTOPRAZOLE SODIUM 82349027410 No Longer Active Gali Raida Active KEFLEX 500 MG CAP 1 po TID x 10 days CEPHALEXIN 12490977631 No Longer Active Robbie Busby MD Active TOPIRAMATE 50 MG ORAL TABS take 1 tab po BID for migraines. TOPIRAMATE 71579166770 Active Robbie Busby MD Active TEMAZEPAM 15 MG ORAL CAPS 1 TAB PO Q HS TEMAZEPAM 29192597413 Active Robbie Busby MD Active ALPRAZOLAM 2 MG ORAL TABS 1 TAB PO BID ALPRAZOLAM 50526568752 Active Robbie Busby MD Active FENOFIBRATE 145 MG TABS Take one by mouth daily FENOFIBRATE 26270031858 No Longer Active Robbie Busby MD Active SPIRONOLACTONE 50 MG TABS 1 tablet by mouth twice a day SPIRONOLACTONE 40335403355 No Longer Active Robbie Busby MD Active HYDRALAZINE HCL 25 MG TABS 1 tablet by mouth tid for hypertension HYDRALAZINE HCL 67312900746 No Longer Active Robbie Busby MD Active VIIBRYD 40 MG TABS take 1 tab po qday for depression. VILAZODONE HCL 56788082070 No Longer Active Robbie Busby MD Active TERBINAFINE HCL 250 MG TABS 1 tab po qday for foot infection 2014 TERBINAFINE HCL 20128907494 No Longer Active Robbie Busby MD Active GABAPENTIN 300 MG CAPS 1 po q hs for nerve pain GABAPENTIN 51334946093 Active Robbie Busby MD Active CHERATUSSIN AC 100-10 MG/5ML ORAL SOLN 7.5 mL PO q 4-6 hrs PRN cough GUAIFENESIN-CODEINE 13663843501 No Longer Active Robbie Busby MD Active AZITHROMYCIN 250 MG ORAL TABS 2 tablets PO today---then, 1 tablet PO daily x 4 more days (and 1 optional refill) AZITHROMYCIN 67005501113 No Longer Active Robbie Busby MD Active NORVASC 10 MG TAB 1 tablet by mouth daily AMLODIPINE BESYLATE 85746363426 No Longer Active Alex ALVAREZ Active IMDUR 60 MG TAB CR take 1 tab po qday for blood pressure ISOSORBIDE MONONITRATE Active Robbie Busby MD Active ISOSORBIDE DINITRATE 30 MG TABS Take one by mouth daily ISOSORBIDE DINITRATE 80465015315 No Longer Active Robbie Busby MD Active VIIBRYD 40 MG TABS 1 TA B PO DAILY VILAZODONE HCL 64353381473 Active Robbie Busby MD Active ZITHROMAX 250 MG TAB 2 po today, then 1 po q days 2-5 AZITHROMYCIN 06389416713 No Longer Active Robbie Busby MD Active [id number] 0.3 MG/24HR PTWK apply 2 patches q week for HTN CLONIDINE HCL 43307416173 Active Robbie Busby MD Active DOXAZOSIN MESYLATE 4 MG TABS Take one by mouth daily DOXAZOSIN MESYLATE 88282478806 Active Robbie Busby MD Active TOPROL XL 200 MG [id number] Take one by mouth daily METOPROLOL SUCCINATE 95321273378 Active Robbie Busby MD Active VENLAFAXINE HCL ER 150 MG [id number] Take one by mouth daily VENLAFAXINE HCL 88783768007 Active Robbie Busby MD Active LIPITOR 40 MG TABS Take one by mouth daily ATORVASTATIN CALCIUM 78836553057 Active Robbie Busby MD Active ISOSORBIDE DINITRATE 30 MG TABS Take one by mouth daily ISOSORBIDE DINITRATE 30 MG TABS 657975 ISOSORBIDE DINITRATE Inactive NORVASC 10 MG TAB 1 tablet by mouth daily NORVASC 10 MG TAB 707606 AMLODIPINE BESYLATE Inactive AZITHROMYCIN 250 MG ORAL TABS 2 tablets PO today---then, 1 tablet PO daily x 4 more days (and 1 optional refill) AZITHROMYCIN 250 MG ORAL TABS 554564 AZITHROMYCIN Inactive CHERATUSSIN AC 100-10 MG/5ML ORAL SOLN 7.5 mL PO q 4-6 hrs PRN cough CHERATUSSIN AC 100-10 MG/5ML ORAL SOLN 792751 GUAIFENESIN- CODEINE Inactive VIIBRYD 40 MG TABS take 1 tab po qday for depression. VIIBRYD 40 MG TABS VILAZODONE HCL Inactive HYDRALAZINE HCL 25 MG TABS 1 tablet by mouth tid for hypertension HYDRALAZINE HCL 25 MG TABS 730983 HYDRALAZINE HCL Inactive SPIRONOLACTONE 50 MG TABS 1 tablet by mouth twice a day SPIRONOLACTONE 50 MG TABS 844341 SPIRONOLACTONE Inactive FENOFIBRATE 145 MG TABS Take one by mouth daily FENOFIBRATE 145 MG TABS 826347 FENOFIBRATE Inactive PROTONIX 40 MG SOLR 1 po qday for acid reflux PROTONIX 40 MG SOLR 936635 PANTOPRAZOLE SODIUM Inactive CEFDINIR 300 MG ORAL CAPS Take 1 cap po bid x 10 days CEFDINIR 300 MG ORAL CAPS 172986 CEFDINIR Inactive PREDNISONE 20 MG TAB 1 tablet twice daily for 2 days, then 1 tablet once daily for 2 days PREDNISONE 20 MG TAB 675608 PREDNISONE Inactive NYSTATIN 379606 UNIT/ML M/T SUSP 5mL po QID x 10 days NYSTATIN 184234 UNIT/ML M/T SUSP 313861 NYSTATIN Inactive BETADINE 10 % EXT SOLN 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 BETADINE 10 % EXT SOLN 8551288 POVIDONE-IODINE Inactive TRILEPTAL 150 MG ORAL TABS 1 TAB PO Q HS TRILEPTAL 150 MG ORAL TABS 176178 OXCARBAZEPINE Inactive LAMISIL 125 MG ORAL PACK 1 TAB PO DAILY LAMISIL 125 MG ORAL PACK TERBINAFINE HCL Inactive HYDROCHLOROTHIAZIDE TABS Take one by mouth daily HYDROCHLOROTHIAZIDE TABS HYDROCHLOROTHIAZIDE TABS Inactive HYDROCODONE-ACETAMINOPHEN 5-325 MG TABS 1 tab by mouth BID prn back pain 2013 HYDROCODONE-ACETAMINOPHEN 5-325 MG TABS 032776 HYDROCODONE -ACETAMINOPHEN Inactive HYDRALAZINE HCL 50 MG ORAL TABS TWO BY MOUTH THREE TIMES DAILY HYDRALAZINE HCL 50 MG ORAL TABS 127530 HYDRALAZINE HCL Inactive LEVAQUIN 500 MG TAB 1 tablet by mouth daily for 7 days LEVAQUIN 500 MG TAB 138072 LEVOFLOXACIN Inactive SPIRONOLACTONE 25 MG TAB 4 tablets by mouth daily SPIRONOLACTONE 25 MG TAB 730215 SPIRONOLACTONE Inactive MECLIZINE HCL 25 MG TAB one 4 times a day as needed for dizziness MECLIZINE HCL 25 MG TAB 839768 MECLIZINE HCL Inactive CLONIDINE HCL 0.2 MG ORAL TABS 1 TAB BY MOUTH EVERY 8 HOURS 12/29 CLONIDINE HCL 0.2 MG ORAL TABS 476404 CLONIDINE HCL Inactive CYCLOBENZAPRINE HCL 10 MG TABS 1 tablet by mouth three times daily as needed for muscle spasm/pain for 10 days CYCLOBENZAPRINE HCL 10 MG TABS 556996 CYCLOBENZAPRINE HCL Inactive VITAMIN D3 03724 UNIT CAPS 2 CAPS PO WEEKLY VITAMIN D3 50931 UNIT CAPS CHOLECALCIFEROL Inactive FIORICET 50-300-40 MG ORAL CAPS take 1 tab po qday prn migraines. FIORICET 50-300-40 MG ORAL CAPS 184179 [id number] Inactive FLONASE 50 MCG/ACT SUSP 1 spray each nostril twice daily for allergies and runny nose FLONASE 50 MCG/ACT SUSP 9462990 FLUTICASONE PROPIONATE Inactive LORATADINE 10 MG TABS 1 tablet by mouth daily for congestion and allergies. LORATADINE 10 MG TABS 350290 LORATADINE Inactive NITROSTAT 0.4 MG SUBL PRN NITROSTAT 0.4 MG SUBL 659572 NITROGLYCERIN Inactive GUAIFENESIN 600 MG [id number] 1 tab po q am GUAIFENESIN 600 MG [id number] GUAIFENESIN Inactive ZITHROMAX 250 MG TAB 2 po today, then 1 po q days 2-5 ZITHROMAX 250 MG TAB 021073 AZITHROMYCIN Inactive TERBINAFINE HCL 250 MG TABS 1 tab po qday for foot infection 2014 TERBINAFINE HCL 250 MG TABS 847036 TERBINAFINE HCL Inactive KEFLEX 500 MG CAP 1 po TID x 10 days KEFLEX 500 MG CAP 549799 CEPHALEXIN Inactive BACTRIM DS 800-160 MG TAB 1 tab by mouth twice daily BACTRIM DS 800-160 MG TAB 583171 TRIMETHOPRIM-SULFAMETHOXAZOLE Inactive PREDNISONE 20 MG TAB take 3 tabs daily for 3 days, 2 tabs daily for 3 days, 1 tab daily for 3 days, 1/2 tab daily for 4 days PREDNISONE 20 MG TAB 580885 PREDNISONE Inactive Advance Directives Directive Description Start [...] temperature weight E&M 213.5 [lb_av] Weight Measured Diagnostic Results Date Name Value Unit Range Description Lab Report: CBC W/DIFF, Comp. Metabolic Panel, CKI, UADIP W/MICRO, AUTO - Chemistry sodium, serum 142 mmol/L 301-243 0689/07/17 carbon dioxide, venous blood 28.2 mmol/L 21.0-32.0 [...] % 11.0-15.0 platelet count 185 THOUSAND/UL 10*3/mm3 589-353 7420/04/14 mean platelet volume 10.9 fL 7.5-12.5 Lab Report: LIPID PANEL, TSH/899, T4, FREE/866 - Chemistry cholesterol, serum 220 mg/dL 395-600 7971/04/14 HDL cholesterol, serum 30 mg/dL > OR=40 [...] 1.80 ng/mL 0.00-4.00 Lab Report: VITAMIN D, 25-HYDROXY/65194 - Chemistry vitamin D 25-hydroxy, serum 25 ng/mL 30-100 Office Visit: Confusion, dizziness after fall - Basic LDL target level 130 mg/dL Office Visit: Confusion, dizziness after fall - Chemistry HDL cholesterol, serum, target level 40 mg/dL triglyceride, target level 150 mg/dL cholesterol, target level 200 mg/dL Encounters Code Encounter Date Provider Facility CPT-52636 Level 3 Est. Patient 15:40:49 CDT Robbie Busby MD [facility] CPT-35048 Level 4 Est. Patient 15:18:19 CDT Robbie Busby MD [facility] CPT-70308 Level 3 Est. Patient 09:00:37 CDT Rober Rodríguez [facility] CPT-69740 Level 3 Est. Patient 16:07:10 CDT Robbie Busby MD [facility] CPT-51146 Level 4 Est. Patient 11:56:16 CDT Erin Garsia [facility] CPT-92529 Level 3 Est. Patient 17:48:02 CDT Robbie Busby MD [facility] CPT-69029 Level 4 Est. Patient 12:00:49 AVIATION MANAGER Rober Rodríguez [facility] CPT-24251 Level 3 Est. Patient 09:16:37 CDT Robbie Busby MD [facility] CPT-58053 Level 3 Est. Patient 19:38:43 CDT Robbie Busby MD [facility] CPT-03979 Level 3 Est. Patient 11:53:38 CDT Robbie Busby MD [facility] CPT-00408 Level 4 Est. Patient 12:52:22 CDT Rober Rodríguez [facility] CPT-88633 Level 4 Est. Patient 22:55:17 CDT Robbie Busby MD [facility] CPT-85418 Level 3 Est. Patient 12:38:24 CDT Desmond Diaz DO [facility] CPT-69845 Level 4 Est. Patient 11:25:03 AVIATION MANAGER Robbie Busby MD [facility] CPT-12677 Level 4 Est. Patient 14:50:10 CDT Robbie Busby MD [facility] CPT-09388 Level 4 Est. Patient 23:30:43 CDT Robbie Busby MD [facility] CPT-84946 Level 4 Est. Patient 10:30:43 CDT Robbie Busby MD [facility] CPT-38992 Level 3 Est. Patient 17:08:12 CDT Alex Shaw [facility] CPT-13152 Level 4 Est. Patient 17:51:38 CDT Robbie Busby MD [facility] CPT-99138 Level 4 Est. Patient 14:00:21 CDT Robbie Busby MD [facility] CPT-41083 Level 4 Est. Patient 12:46:48 CDT Robbie Busby MD [facility] CPT-51861 Level 4 Est. Patient 13:34:33 CDT Robbie Busby MD [facility] CPT-93198 Level 4 Est. Patient 16:58:28 CDT Robbie Busby MD [facility] CPT-94515 Level 3 Est. Patient 19:36:53 CDT Alex Shaw [facility] CPT-51366 Level 3 Est. Patient 12:58:15 CDT Robbie Busby MD [facility] Procedures Code Procedure Name Date Entry Date Standard Description CPT-J1071 Depo Testosterone 200mg 14:20:43 CDT CPT-46069 Abx/Therapy Injection 14:20:43 CDT CPT-J1071 Depo Testosterone 200mg 14:17:22 CDT CPT-39427 Abx/Therapy Injection 14:17:22 CDT CPT-J1071 Depo Testosterone 200mg 09:03:53 CDT CPT-64760 Abx/Therapy Injection 09:03:53 CDT CPT-G0439 [facility] Annual Wellness Exam 16:47:44 CDT CPT-J1071 Depo Testosterone 200mg 09:06:28 CDT CPT-36246 Abx/Therapy Injection 09:06:28 CDT CPT-J1071 Depo Testosterone 200mg 08:30:01 CDT CPT-47661 Abx/Therapy Injection 08:30:01 CDT CPT-J1071 Depo Testosterone 200mg 08:24:00 CDT CPT-14286 Abx/Therapy Injection 08:24:00 CDT CPT-05802 Venipuncture Draw Fee 14:39:06 CDT CPT-56851 Ribs unilateral 2V - XRAY USE ONLY 12:10:11 CDT CPT-15219 First Vx - Ix admin for Medicare patients 16:32:53 CDT CPT-79670 Boostrix Intramuscular Suspension 5-2.5-18.5 16:32:53 CDT CPT-51052 TB Skin Test 11:42:28 CDT CPT-26856 Tdap 7yrs or > 11:42:28 CDT CPT-J0696 Rocephin 1000 mg (Ceftriaxone) 17:43:43 AVIATION MANAGER CPT-J1040 Depo Medrol 80 mg (Methyl Prednisolone Acetate) 17:43: 43 AVIATION MANAGER CPT-J1100 Decadron 8mg (Dexamethasone) 17:43:42 AVIATION MANAGER CPT-51568 Abx/Therapy Injection 17:43:42 AVIATION MANAGER CPT-99943 Abx/Therapy Injection 17:43:42 AVIATION MANAGER CPT-J1040 Depo Medrol 80 mg (Methyl Prednisolone Acetate) 09:43: 34 AVIATION MANAGER CPT-J1100 Decadron 8mg (Dexamethasone) 09:43:34 AVIATION MANAGER CPT-J0696 Rocephin 1gm Inj Solr 09:43:34 AVIATION MANAGER CPT-82888 Wound Culture - LAB USE ONLY 14:00:21 CDT CPT-I/D I/D Abscess 09:16:37 CDT CPT-72085 Venipuncture Draw Fee 15:20:23 CDT CPT-43688 Microalbumin - LAB USE ONLY 16:02:19 CDT CPT-73905 CBC - LAB USE ONLY 16:02:19 CDT CPT-84757 Venipuncture Draw Fee 16:02:19 CDT CPT-G0438 Initial Annual Wellness Exam 08:10:28 CDT CPT-83029 Venipuncture Draw Fee 13:07:17 CDT CPT-G0008 Administration of Influenza Virus Vaccine 16:09:59 CDT CPT-65036 Fluzone Quadrivalent Intramuscular Suspension 0.5 ML 16: 09:59 CDT CPT-01438 Spec Collection and Handling Fee 15:05:50 CDT
--- OUTSIDE RECORDS SUMMARY | 2018-04-18 10:56 | XMS REPORT | Clinical Summary ---
Author Author Admin, [facility] Organization [facility] Address Unknown Phone [...] by mouth daily for 7 days LEVOFLOXACIN 26030207369 Active Erin Garsia APRN Active BACTRIM DS 800-160 MG TAB 1 tab by mouth twice daily TRIMETHOPRIM-SULFAMETHOXAZOLE 70889050159 No Longer Active Robbie Busby MD Active SPIRONOLACTONE 25 MG TAB 4 tablets by mouth daily SPIRONOLACTONE 48434118077 Active Robbie Busby MD Active HYDRALAZINE HCL 50 MG ORAL TABS TWO BY MOUTH THREE TIMES DAILY HYDRALAZINE HCL 96915870295 No Longer Active Andrellina Zulemal SUPERVISOR RO[employer] ADMINISTRATOR Active HYDROCODONE-ACETAMINOPHEN 5-325 MG TABS 1 tab by mouth BID prn back pain 2013 HYDROCODONE-ACETAMINOPHEN 44580777604 No Longer Active 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 SUPERVISOR RO[address] ADMINISTRATOR Active HYDROCHLOROTHIAZIDE TABS Take one by mouth daily HYDROCHLOROTHIAZIDE TABS 83640855789 No Longer Active 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 SUPERVISOR RO[address] ADMINISTRATOR Active LAMISIL 125 MG ORAL PACK 1 TAB PO DAILY TERBINAFINE HCL 81055297921 No Longer Active 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 SUPERVISOR ROAD ADMINISTRATOR Active TRILEPTAL 150 MG ORAL TABS 1 TAB PO Q HS OXCARBAZEPINE 12011507413 No Longer Active 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 SUPERVISOR RO[address] ADMINISTRATOR Active BETADINE 10 % EXT SOLN 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 POVIDONE-IODINE 74121260935 No Longer Active 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 SUPERVISOR RO[address] ADMINISTRATOR Active NYSTATIN 764119 UNIT/ML M/T SUSP 5mL po QID x 10 days NYSTATIN 49136704905 No Longer Active Erin Garsia APRN Active PREDNISONE 20 MG TAB 1 tablet twice daily for 2 days, then 1 tablet once daily for 2 days PREDNISONE 92344912097 No Longer Active Robbie Busby MD Active CEFDINIR 300 MG ORAL CAPS Take 1 cap po bid x 10 days CEFDINIR 61151730959 No Longer Active Robbie Busby MD Active AMLODIPINE BESYLATE 10 MG TABS 1 tablet by mouth daily AMLODIPINE BESYLATE 07914002469 Active Robbie Busby MD Active CARVEDILOL 25 MG TABS 1 & 1/2 TAB po BID CARVEDILOL 42496668815 Active Erin Garsia APRN Active VITAMIN D3 93777 UNIT CAPS 2 CAPS PO WEEKLY CHOLECALCIFEROL 48464735636 Active Erin Garsia APRN Active NEXIUM 40 MG CPDR 1 cap by mouth daily ESOMEPRAZOLE MAGNESIUM 40741445766 Active Robbie Busby MD Active PROTONIX 40 MG SOLR 1 po qday for acid reflux PANTOPRAZOLE SODIUM 87022025448 No Longer Active Gali Raida Active KEFLEX 500 MG CAP 1 po TID x 10 days CEPHALEXIN 01969515879 No Longer Active Robbie Busby MD Active FIORICET 50-300-40 MG ORAL CAPS take 1 tab po qday prn migraines. [id number] 82090093350 Active Robbie Busby MD Active TOPIRAMATE 50 MG ORAL TABS take 1 tab po BID for migraines. TOPIRAMATE 65413864653 Active Robbie Busby MD Active MECLIZINE HCL 25 MG TAB one 4 times a day as needed for dizziness MECLIZINE HCL 80813850439 Active Robbie Busby MD Active TEMAZEPAM 15 MG ORAL CAPS 1 TAB PO Q HS TEMAZEPAM 39577151109 Active Robbie Busby MD Active ALPRAZOLAM 2 MG ORAL TABS 1 TAB PO BID ALPRAZOLAM 39158153074 Active Robbie Busby MD Active FENOFIBRATE 145 MG TABS Take one by mouth daily FENOFIBRATE 93445057361 No Longer Active Robbie Busby MD Active SPIRONOLACTONE 50 MG TABS 1 tablet by mouth twice a day SPIRONOLACTONE 59166973108 No Longer Active Robbie Busby MD Active HYDRALAZINE HCL 25 MG TABS 1 tablet by mouth tid for hypertension HYDRALAZINE HCL 49867535143 No Longer Active Robbie Busby MD Active VIIBRYD 40 MG TABS take 1 tab po qday for depression. VILAZODONE HCL 77922201464 No Longer Active Robbie Busby MD Active TERBINAFINE HCL 250 MG TABS 1 tab po qday for foot infection 2014 TERBINAFINE HCL 81421503140 No Longer Active Robbie Busby MD Active GABAPENTIN 300 MG CAPS 1 po q hs for nerve pain GABAPENTIN 81869377225 Active Robbie Busby MD Active FLONASE 50 MCG/ACT SUSP 1 spray each nostril twice daily for allergies and runny nose FLUTICASONE PROPIONATE 99295866840 Active Robbie Busby MD Active CHERATUSSIN AC 100-10 MG/5ML ORAL SOLN 7.5 mL PO q 4-6 hrs PRN cough GUAIFENESIN-CODEINE 80244987303 No Longer Active Robbie Busby MD Active AZITHROMYCIN 250 MG ORAL TABS 2 tablets PO today---then, 1 tablet PO daily x 4 more days (and 1 optional refill) AZITHROMYCIN 02722879353 No Longer Active Robbie Busby MD Active CLONIDINE HCL 0.2 MG ORAL TABS 1 TAB BY MOUTH EVERY 8 HOURS CLONIDINE HCL 00516489107 Active Robbie Busby MD Active NORVASC 10 MG TAB 1 tablet by mouth daily AMLODIPINE BESYLATE 38339565434 No Longer Active Alex ALVAREZ Active IMDUR 60 MG TAB CR take 1 tab po qday for blood pressure ISOSORBIDE MONONITRATE Active Robbie Busby MD Active ISOSORBIDE DINITRATE 30 MG TABS Take one by mouth daily ISOSORBIDE DINITRATE 84291720977 No Longer Active Robbie Busby MD Active VIIBRYD 40 MG TABS 1 TA B PO DAILY VILAZODONE HCL 36245372957 Active Robbie Busby MD Active LORATADINE 10 MG TABS 1 tablet by mouth daily for congestion and allergies. LORATADINE 82296540769 Active Robbie Busby MD Active ZITHROMAX 250 MG TAB 2 po today, then 1 po q days 2-5 AZITHROMYCIN 95256999626 No Longer Active Robbie Busby MD Active [id number]-[id number] 0.3 MG/24HR PTWK apply 2 patches q week for HTN CLONIDINE HCL 56896416348 Active Robbie Busby MD Active NITROSTAT 0.4 MG SUBL PRN NITROGLYCERIN 26385415414 Active Robbie Busby MD Active DOXAZOSIN MESYLATE 4 MG TABS Take one by mouth daily DOXAZOSIN MESYLATE 13561481006 Active Erin Garsia APRN Active TOPROL XL 200 MG [id number] Take one by mouth daily METOPROLOL SUCCINATE 29413248754 Active Robbie Busby MD Active VENLAFAXINE HCL ER 150 MG [id number] Take one by mouth daily VENLAFAXINE HCL 12843503837 Active Robbie Busby MD Active LIPITOR 40 MG TABS Take one by mouth daily ATORVASTATIN CALCIUM 02082988563 Active Robbie Busby MD Active ISOSORBIDE DINITRATE 30 MG TABS Take one by mouth daily ISOSORBIDE DINITRATE 30 MG TABS 983832 ISOSORBIDE DINITRATE Inactive NORVASC 10 MG TAB 1 tablet by mouth daily NORVASC 10 MG TAB 278119 AMLODIPINE BESYLATE Inactive AZITHROMYCIN 250 MG ORAL TABS 2 tablets PO today---then, 1 tablet PO daily x 4 more days (and 1 optional refill) AZITHROMYCIN 250 MG ORAL TABS 4416820 AZITHROMYCIN Inactive CHERATUSSIN AC 100-10 MG/5ML ORAL SOLN 7.5 mL PO q 4-6 hrs PRN cough CHERATUSSIN AC 100-10 MG/5ML ORAL SOLN 028723 GUAIFENESIN- CODEINE Inactive VIIBRYD 40 MG TABS take 1 tab po qday for depression. VIIBRYD 40 MG TABS VILAZODONE HCL Inactive HYDRALAZINE HCL 25 MG TABS 1 tablet by mouth tid for hypertension HYDRALAZINE HCL 25 MG TABS 388220 HYDRALAZINE HCL Inactive SPIRONOLACTONE 50 MG TABS 1 tablet by mouth twice a day SPIRONOLACTONE 50 MG TABS 509612 SPIRONOLACTONE Inactive FENOFIBRATE 145 MG TABS Take one by mouth daily FENOFIBRATE 145 MG TABS 736433 FENOFIBRATE Inactive PROTONIX 40 MG SOLR 1 po qday for acid reflux PROTONIX 40 MG SOLR 810022 PANTOPRAZOLE SODIUM Inactive CEFDINIR 300 MG ORAL CAPS Take 1 cap po bid x 10 days CEFDINIR 300 MG ORAL CAPS 261914 CEFDINIR Inactive PREDNISONE 20 MG TAB 1 tablet twice daily for 2 days, then 1 tablet once daily for 2 days PREDNISONE 20 MG TAB 640877 PREDNISONE Inactive NYSTATIN 557480 UNIT/ML M/T SUSP 5mL po QID x 10 days NYSTATIN 898503 UNIT/ML M/T SUSP 533212 NYSTATIN Inactive BETADINE 10 % EXT SOLN 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 BETADINE 10 % EXT SOLN 5581557 POVIDONE-IODINE Inactive TRILEPTAL 150 MG ORAL TABS 1 TAB PO Q HS TRILEPTAL 150 MG ORAL TABS 993803 OXCARBAZEPINE Inactive LAMISIL 125 MG ORAL PACK 1 TAB PO DAILY LAMISIL 125 MG ORAL PACK TERBINAFINE HCL Inactive HYDROCHLOROTHIAZIDE TABS Take one by mouth daily HYDROCHLOROTHIAZIDE TABS HYDROCHLOROTHIAZIDE TABS Inactive HYDROCODONE-ACETAMINOPHEN 5-325 MG TABS 1 tab by mouth BID prn back pain 2013 HYDROCODONE-ACETAMINOPHEN 5-325 MG TABS 472829 HYDROCODONE -ACETAMINOPHEN Inactive HYDRALAZINE HCL 50 MG ORAL TABS TWO BY MOUTH THREE TIMES DAILY HYDRALAZINE HCL 50 MG ORAL TABS 654651 HYDRALAZINE HCL Inactive ZITHROMAX 250 MG TAB 2 po today, then 1 po q days 2-5 ZITHROMAX 250 MG TAB 8874985 AZITHROMYCIN Inactive TERBINAFINE HCL 250 MG TABS 1 tab po qday for foot infection 2014 TERBINAFINE HCL 250 MG TABS 229433 TERBINAFINE HCL Inactive KEFLEX 500 MG CAP 1 po TID x 10 days KEFLEX 500 MG CAP 232831 CEPHALEXIN Inactive BACTRIM DS 800-160 MG TAB 1 tab by mouth twice daily BACTRIM DS 800-160 MG TAB 741796 TRIMETHOPRIM-SULFAMETHOXAZOLE Inactive Advance Directives Directive Description Start [...] Acid - Chemistry sodium, serum 139 mmol/L 253-720 5132/04/22 carbon dioxide, venous blood 29.4 mmol/L 21.0-32.0 [...] to Follow Negative Lab Report: VITAMIN D, 25-HYDROXY/11248 - Chemistry vitamin D 25-hydroxy, serum 23 ng/mL 30-100 Encounters Code Encounter Date Provider Facility CPT-61212 Level 4 Est. Patient 12:00:49 COLOR MIXER Rober Rodríguez APRN [facility] CPT-91845 Level 3 Est. Patient 09:16:37 CDT Robbie Busby MD [facility] CPT-33038 Level 3 Est. Patient 19:38:43 CDT Robbie Busby MD [facility] CPT-14998 Level 3 Est. Patient 11:53:38 CDT Robbie Busby MD [facility] [place]-26405 Level 4 Est. Patient 12:52:22 CDT Rober Rodríguez APRN [facility] CPT-79110 Level 4 Est. Patient 22:55:17 CDT Robbie Busby MD [facility] [place]-87058 Level 3 Est. Patient 12:38:24 CDT Desmond Diaz DO [facility] CPT-66647 Level 4 Est. Patient 11:25:03 COLOR MIXER Robbie Busby MD [facility]-35427 Level 4 Est. Patient 14:50:10 CDT Robbie Busby MD [facility] CPT-18358 Level 4 Est. Patient 23:30:43 CDT Robbie Busby MD [facility] CPT-57552 Level 4 Est. Patient 10:30:43 CDT Robbie Busby MD [facility] CPT-90729 Level 3 Est. Patient 17:08:12 CDT Alex ALVAREZ [facility] CPT-44286 Level 4 Est. Patient 17:51:38 CDT Robbie Busby MD [facility] CPT-43945 Level 4 Est. Patient 14:00:21 CDT Robbie Bsuby MD [facility] CPT-79295 Level 4 Est. Patient 12:46:48 CDT Robbie Busby MD [facility]-53703 Level 4 Est. Patient 13:34:33 CDT Robbie Busby MD [facility] CPT-41195 Level 4 Est. Patient 16:58:28 CDT Robbie Busby MD [facility] CPT-43287 Level 3 Est. Patient 19:36:53 CDT Alex ALVAREZ [facility] CPT-86271 Level 3 Est. Patient 12:58:15 CDT Robbie Busby MD [facility] Procedures Code Procedure Name Date Entry Date Standard Description CPT-J1040 Depo Medrol 80 mg (Methyl Prednisolone Acetate) 09:43: 34 COLOR MIXER CPT-J1100 Decadron 8mg (Dexamethasone) 09:43:34 COLOR MIXER CPT-J0696 Rocephin 1gm Inj Solr 09:43:34 COLOR MIXER CPT-39297 Wound Culture - LAB USE ONLY 14:00:21 CDT CPT-I/D I/D Abscess 09:16:37 CDT CPT-85431 Venipuncture Draw Fee 15:20:23 CDT CPT-79879 Microalbumin - LAB USE ONLY 16:02:19 CDT CPT-37106 CBC - LAB USE ONLY 16:02:19 CDT CPT-04124 Venipuncture Draw Fee 16:02:19 CDT CPT-G0438 Initial Annual Wellness Exam 08:10:28 CDT CPT-34786 Venipuncture Draw Fee 13:07:17 CDT CPT-G0008 Administration of Influenza Virus Vaccine 16:09:59 CDT CPT-94830 Fluzone Quadrivalent Intramuscular Suspension 0.5 ML 16: 09:59 CDT CPT-71303 Spec Collection and Handling Fee 15:05:50 CDT
--- OUTSIDE RECORDS SUMMARY | 2018-04-18 10:57 | XMS REPORT | Clinical Summary ---
Author Author Admin, [facility] Organization [employer] [facility] Address Unknown Phone Unavailable Allergies, Adverse [...] Name NDC Status Provider Patient Instruction NYSTATIN 759943 UNIT/ML M/T SUSP 5mL po QID x 10 days NYSTATIN 04615670431 No Longer Active Erin Garsia APRN Active PREDNISONE 20 MG TAB 1 tablet twice daily for 2 days, then 1 tablet once daily for 2 days PREDNISONE 98647063214 No Longer Active Robbie Busby MD Active CEFDINIR 300 MG ORAL CAPS Take 1 cap po bid x 10 days CEFDINIR 68368278410 No Longer Active Robbie Busby MD Active AMLODIPINE BESYLATE 10 MG TABS 1 tablet by mouth daily AMLODIPINE BESYLATE 31934411584 Active Robbie Busby MD Active CARVEDILOL 25 MG TABS 1 & 1/2 TAB po BID CARVEDILOL 57599565655 Active Robbie Busby MD Active VITAMIN D3 43655 UNIT CAPS 2 CAPS PO WEEKLY CHOLECALCIFEROL 25649862752 Active Erin Garsia MACHINE BRUSHER Active NEXIUM 40 MG CPDR 1 cap by mouth daily ESOMEPRAZOLE MAGNESIUM 45111012739 Active Gali Negro Active PROTONIX 40 MG SOLR 1 po qday for acid reflux PANTOPRAZOLE SODIUM 05588763103 No Longer Active Gali Rajuan carlos Active BETADINE 10 % EXT SOLN 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 POVIDONE-IODINE 57886056038 Active Robbie Busby MD Active KEFLEX 500 MG CAP 1 po TID x 10 days CEPHALEXIN 49067592606 No Longer Active Robbie Busby MD Active FIORICET 50-300-40 MG ORAL CAPS take 1 tab po qday prn migraines. [id number] 20080636506 Active Robbie Busby MD Active TOPIRAMATE 50 MG ORAL TABS take 1 tab po BID for migraines. TOPIRAMATE 63390925658 Active Robbie Busby MD Active HYDRALAZINE HCL 50 MG ORAL TABS TWO BY MOUTH THREE TIMES DAILY HYDRALAZINE HCL 84259821980 Active Robbie Busby MD Active MECLIZINE HCL 25 MG TAB one 4 times a day as needed for dizziness MECLIZINE HCL 48541057701 Active Robbie Busby MD Active TRILEPTAL 150 MG ORAL TABS 1 TAB PO Q HS OXCARBAZEPINE 02881242214 Active Robbie Busby MD Active TEMAZEPAM 15 MG ORAL CAPS 1 TAB PO Q HS TEMAZEPAM 25717331198 Active Robbie Busby MD Active ALPRAZOLAM 2 MG ORAL TABS 1 TAB PO BID ALPRAZOLAM 37141672488 Active Robbie Busby MD Active FENOFIBRATE 145 MG TABS Take one by mouth daily FENOFIBRATE 73906896010 No Longer Active Robbie Busby MD Active LAMISIL 125 MG ORAL PACK 1 TAB PO DAILY TERBINAFINE HCL 91679090414 Active Robbie Busby MD Active SPIRONOLACTONE 50 MG TABS 1 tablet by mouth twice a day SPIRONOLACTONE 77094173725 No Longer Active Robbie Busby MD Active HYDRALAZINE HCL 25 MG TABS 1 tablet by mouth tid for hypertension HYDRALAZINE HCL 14666525142 No Longer Active Robbie Busby MD Active VIIBRYD 40 MG TABS take 1 tab po qday for depression. VILAZODONE HCL 87184409253 No Longer Active Robbie Busby MD Active TERBINAFINE HCL 250 MG TABS 1 tab po qday for foot infection 2014 TERBINAFINE HCL 38789657505 No Longer Active Robbie Busby MD Active GABAPENTIN 300 MG CAPS 1 po q hs for nerve pain GABAPENTIN 59320156633 Active Robbie Busby MD Active FLONASE 50 MCG/ACT SUSP 1 spray each nostril twice daily for allergies and runny nose FLUTICASONE PROPIONATE 63071208322 Active Robbie Busby MD Active CHERATUSSIN AC 100-10 MG/5ML ORAL SOLN 7.5 mL PO q 4-6 hrs PRN cough GUAIFENESIN-CODEINE 87688837003 No Longer Active Robbie Busby MD Active AZITHROMYCIN 250 MG ORAL TABS 2 tablets PO today---then, 1 tablet PO daily x 4 more days (and 1 optional refill) AZITHROMYCIN 23691912976 No Longer Active Robbie Busby MD Active CLONIDINE HCL 0.2 MG ORAL TABS 1 TAB BY MOUTH EVERY 8 HOURS CLONIDINE HCL 28993427206 Active Robbie Busby MD Active HYDROCHLOROTHIAZIDE TABS Take one by mouth daily HYDROCHLOROTHIAZIDE TABS 57783888346 Active Alex ALVAREZ Active NORVASC 10 MG TAB 1 tablet by mouth daily AMLODIPINE BESYLATE 74475715764 No Longer Active Alex ALVAREZ Active IMDUR 60 MG TAB CR take 1 tab po qday for blood pressure ISOSORBIDE MONONITRATE Active Robbie Busby MD Active ISOSORBIDE DINITRATE 30 MG TABS Take one by mouth daily ISOSORBIDE DINITRATE 66757246938 No Longer Active Robbie Busby MD Active VIIBRYD 40 MG TABS 1 TA B PO DAILY VILAZODONE HCL 72092225933 Active Erin Garsia APRN Active LORATADINE 10 MG TABS 1 tablet by mouth daily for congestion and allergies. LORATADINE 95862068148 Active Robbie Busby MD Active ZITHROMAX 250 MG TAB 2 po today, then 1 po q days 2-5 AZITHROMYCIN 73254252801 No Longer Active Robbie Busby MD Active HYDROCODONE-ACETAMINOPHEN 5-325 MG TABS 1 tab by mouth BID prn back pain 2013 HYDROCODONE-ACETAMINOPHEN 03925241125 Active Robbie Busby MD Active RURMPLXQ-[id number]-7 0.3 MG/24HR PTWK apply 2 patches q week for HTN CLONIDINE HCL 83145773911 Active Robbie Busby MD Active NITROSTAT 0.4 MG SUBL PRN NITROGLYCERIN 50956680724 Active Robbie Busby MD Active DOXAZOSIN MESYLATE 4 MG TABS Take one by mouth daily DOXAZOSIN MESYLATE 46329833187 Active Robbie Busby MD Active TOPROL XL 200 MG [id number] Take one by mouth daily METOPROLOL SUCCINATE 86059972440 Active Robbie Busby MD Active VENLAFAXINE HCL ER 150 MG [id number] Take one by mouth daily VENLAFAXINE HCL 01630883888 Active Robbie Busby MD Active LIPITOR 40 MG TABS Take one by mouth daily ATORVASTATIN CALCIUM 65474347500 Active Robbie Busby MD Active ISOSORBIDE DINITRATE 30 MG TABS Take one by mouth daily ISOSORBIDE DINITRATE 30 MG TABS 097417 ISOSORBIDE DINITRATE Inactive NORVASC 10 MG TAB 1 tablet by mouth daily NORVASC 10 MG TAB 637438 AMLODIPINE BESYLATE Inactive AZITHROMYCIN 250 MG ORAL TABS 2 tablets PO today---then, 1 tablet PO daily x 4 more days (and 1 optional refill) AZITHROMYCIN 250 MG ORAL TABS 0528839 AZITHROMYCIN Inactive CHERATUSSIN AC 100-10 MG/5ML ORAL SOLN 7.5 mL PO q 4-6 hrs PRN cough CHERATUSSIN AC 100-10 MG/5ML ORAL SOLN 401486 GUAIFENESIN- CODEINE Inactive VIIBRYD 40 MG TABS take 1 tab po qday for depression. VIIBRYD 40 MG TABS VILAZODONE HCL Inactive HYDRALAZINE HCL 25 MG TABS 1 tablet by mouth tid for hypertension HYDRALAZINE HCL 25 MG TABS 492072 HYDRALAZINE HCL Inactive SPIRONOLACTONE 50 MG TABS 1 tablet by mouth twice a day SPIRONOLACTONE 50 MG TABS 864945 SPIRONOLACTONE Inactive FENOFIBRATE 145 MG TABS Take one by mouth daily FENOFIBRATE 145 MG TABS 045393 FENOFIBRATE Inactive PROTONIX 40 MG SOLR 1 po qday for acid reflux PROTONIX 40 MG SOLR 832003 PANTOPRAZOLE SODIUM Inactive CEFDINIR 300 MG ORAL CAPS Take 1 cap po bid x 10 days CEFDINIR 300 MG ORAL CAPS 953257 CEFDINIR Inactive PREDNISONE 20 MG TAB 1 tablet twice daily for 2 days, then 1 tablet once daily for 2 days PREDNISONE 20 MG TAB 828131 PREDNISONE Inactive NYSTATIN 115239 UNIT/ML M/T SUSP 5mL po QID x 10 days NYSTATIN 732314 UNIT/ML M/T SUSP 128574 NYSTATIN Inactive ZITHROMAX 250 MG TAB 2 po today, then 1 po q days 2-5 ZITHROMAX 250 MG TAB 2117522 AZITHROMYCIN Inactive TERBINAFINE HCL 250 MG TABS 1 tab po qday for foot infection 2014 TERBINAFINE HCL 250 MG TABS 595375 TERBINAFINE HCL Inactive KEFLEX 500 MG CAP 1 po TID x 10 days KEFLEX 500 MG CAP 638445 CEPHALEXIN Inactive Advance Directives Directive Description Start [...] Acid - Chemistry sodium, serum 139 mmol/L 087-607 6570/04/22 carbon dioxide, venous blood 29.4 mmol/L 21.0-32.0 [...] to Follow Negative Lab Report: VITAMIN D, 25-HYDROXY/16967 - Chemistry vitamin D 25-hydroxy, serum 23 ng/mL 30-100 Encounters Code Encounter Date Provider Facility CPT-91267 Level 4 Est. Patient 22:55:17 CDT Robbie Busby MD [facility] CPT-33160 Level 3 Est. Patient 12:38:24 CDT Desmond Diaz DO [facility] CPT-36550 Level 4 Est. Patient 11:25:03 [employer]CH[employer] Robbie Busby MD [facility] CPT-09323 Level 4 Est. Patient 14:50:10 CDT Robbie Busby MD [facility] CPT-26716 Level 4 Est. Patient 23:30:43 CDT Robbie Busby MD [facility] CPT-45906 Level 4 Est. Patient 10:30:43 CDT Robbie Busby MD [facility] CPT-96526 Level 3 Est. Patient 17:08:12 CDT Alex ALVAREZ [facility] CPT-29305 Level 4 Est. Patient 17:51:38 CDT Robbie Busby MD [facility] CPT-87115 Level 4 Est. Patient 14:00:21 CDT Robbie Busby MD [facility] CPT-55134 Level 4 Est. Patient 12:46:48 CDT Robbie Busby MD [facility] CPT-97857 Level 4 Est. Patient 13:34:33 CDT Robbie Busby MD [facility] CPT-46955 Level 4 Est. Patient 16:58:28 CDT Robbie Busby MD [facility] CPT-11879 Level 3 Est. Patient 19:36:53 CDT Alex Shaw [facility] CPT-36652 Level 3 Est. Patient 12:58:15 CDT Robbie Busby MD [facility] Procedures Code Procedure Name Date Entry Date Standard Description CPT-G0438 Initial Annual Wellness Exam 08:10:28 CDT CPT-05739 Venipuncture Draw Fee 13:07:17 CDT CPT-G0008 Administration of Influenza Virus Vaccine 16:09:59 CDT CPT-85741 Fluzone Quadrivalent Intramuscular Suspension 0.5 ML 16: 09:59 CDT CPT-04807 Spec Collection and Handling Fee 15:05:50 CDT
--- OUTSIDE RECORDS SUMMARY | 2018-04-18 10:58 | XMS REPORT | Clinical Summary ---
Author Author Admin, Nicolas Organization [employer] Address Unknown Phone Unavailable Allergies, Adverse Reactions, [...] Low back pain, acute 724.2 Active Robbie Bubsy MD Lumbago Low back pain, chronic 724.2 [...] chronic, stage III 585.3 Active Ca Garcia Nara Chronic kidney disease, Stage III (moderate) Medication List Medication Instructions Start Date Stop Date Generic Name NDC Status Provider Patient Instruction NYSTATIN 650103 UNIT/ML M/T SUSP 5mL po QID x 10 days NYSTATIN 25305698095 Active Gali Negro Active AMLODIPINE BESYLATE 10 MG TABS 1 tablet by mouth daily AMLODIPINE BESYLATE 36013472031 Active Robbie Busby MD Active CARVEDILOL 25 MG TABS 1 & 1/2 TAB po BID CARVEDILOL 73432139617 Active Robbie Busby MD Active VITAMIN D3 40305 UNIT CAPS 2 CAPS PO WEEKLY CHOLECALCIFEROL 40506433994 Active Vanessa August Active CEFDINIR 300 MG ORAL CAPS Take 1 cap po bid x 10 days CEFDINIR 39742430510 Active Jackie Junior MA Active PREDNISONE 20 MG TAB 1 tablet twice daily for 2 days, then 1 tablet once daily for 2 days PREDNISONE 82846743614 Active Desmond Diaz DO Active NEXIUM 40 MG CPDR 1 cap by mouth daily ESOMEPRAZOLE MAGNESIUM 43637051170 Active Gali Negro Active PROTONIX 40 MG SOLR 1 po qday for acid reflux PANTOPRAZOLE SODIUM 03606482611 No Longer Active Gali Negro Active BETADINE 10 % EXT SOLN 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 POVIDONE-IODINE 61277861102 Active Robbie Busby MD Active KEFLEX 500 MG CAP 1 po TID x 10 days CEPHALEXIN 57989078845 No Longer Active Robbie Busby MD Active FIORICET 50-300-40 MG ORAL CAPS take 1 tab po qday prn migraines. [id number] 74525224641 Active Robbie Busby MD Active TOPIRAMATE 50 MG ORAL TABS take 1 tab po BID for migraines. TOPIRAMATE 14516432803 Active Robbie Busby MD Active HYDRALAZINE HCL 50 MG ORAL TABS TWO BY MOUTH THREE TIMES DAILY HYDRALAZINE HCL 52207764624 Active Robbie Busby MD Active MECLIZINE HCL 25 MG TAB one 4 times a day as needed for dizziness MECLIZINE HCL 87966081248 Active Robbie Busby MD Active TRILEPTAL 150 MG ORAL TABS 1 TAB PO Q HS OXCARBAZEPINE 20845449700 Active Robbie Busby MD Active TEMAZEPAM 15 MG ORAL CAPS 1 TAB PO Q HS TEMAZEPAM 78064177888 Active Robbie Busby MD Active ALPRAZOLAM 2 MG ORAL TABS 1 TAB PO BID ALPRAZOLAM 45892682237 Active Robbie Busby MD Active FENOFIBRATE 145 MG TABS Take one by mouth daily FENOFIBRATE 80725874696 No Longer Active Robbie Busby MD Active LAMISIL 125 MG ORAL PACK 1 TAB PO DAILY TERBINAFINE HCL 51887517483 Active Robbie Busby MD Active SPIRONOLACTONE 50 MG TABS 1 tablet by mouth twice a day SPIRONOLACTONE 81692204658 No Longer Active Robbie Busby MD Active HYDRALAZINE HCL 25 MG TABS 1 tablet by mouth tid for hypertension HYDRALAZINE HCL 71010529038 No Longer Active Robbie Busby MD Active VIIBRYD 40 MG TABS take 1 tab po qday for depression. VILAZODONE HCL 33990023531 No Longer Active Robbie Busby MD Active TERBINAFINE HCL 250 MG TABS 1 tab po qday for foot infection 2014 TERBINAFINE HCL 20302470782 No Longer Active Robbie Busby MD Active GABAPENTIN 300 MG CAPS 1 po q hs for nerve pain GABAPENTIN 34066781898 Active Robbie Busby MD Active FLONASE 50 MCG/ACT SUSP 1 spray each nostril twice daily for allergies and runny nose FLUTICASONE PROPIONATE 70278359617 Active Robbie Busby MD Active CHERATUSSIN AC 100-10 MG/5ML ORAL SOLN 7.5 mL PO q 4-6 hrs PRN cough GUAIFENESIN-CODEINE 84629421354 No Longer Active Robbie Busby MD Active AZITHROMYCIN 250 MG ORAL TABS 2 tablets PO today---then, 1 tablet PO daily x 4 more days (and 1 optional refill) AZITHROMYCIN 74301451986 No Longer Active Robbie Busby MD Active CLONIDINE HCL 0.2 MG ORAL TABS 1 TAB BY MOUTH EVERY 8 HOURS CLONIDINE HCL 54087313660 Active Robbie Busby MD Active HYDROCHLOROTHIAZIDE TABS Take one by mouth daily HYDROCHLOROTHIAZIDE TABS 66294516907 Active Alex ALVAREZ Active NORVASC 10 MG TAB 1 tablet by mouth daily AMLODIPINE BESYLATE 50085675061 No Longer Active Alex ALVAREZ Active IMDUR 60 MG TAB CR take 1 tab po qday for blood pressure ISOSORBIDE MONONITRATE Active Robbie Busby MD Active ISOSORBIDE DINITRATE 30 MG TABS Take one by mouth daily ISOSORBIDE DINITRATE 03977756831 No Longer Active Robbie Busby MD Active VIIBRYD 40 MG TABS 1 TA B PO DAILY VILAZODONE HCL 16879769238 Active Erin Garsia APRN Active LORATADINE 10 MG TABS 1 tablet by mouth daily for congestion and allergies. LORATADINE 43165943743 Active Robbie Busby MD Active ZITHROMAX 250 MG TAB 2 po today, then 1 po q days 2-5 AZITHROMYCIN 70616100573 No Longer Active Robbie Busby MD Active HYDROCODONE-ACETAMINOPHEN 5-325 MG TABS 1 tab by mouth BID prn back pain 2013 HYDROCODONE-ACETAMINOPHEN 54507119062 Active Robbie Busby MD Active [id number] 0.3 MG/24HR PTWK apply 2 patches q week for HTN CLONIDINE HCL 25138627447 Active Robbie Busby MD Active NITROSTAT 0.4 MG SUBL PRN NITROGLYCERIN 37078208881 Active Robbie Busby MD Active DOXAZOSIN MESYLATE 4 MG TABS Take one by mouth daily DOXAZOSIN MESYLATE 47159903217 Active Robbie Busby MD Active TOPROL XL 200 MG [id number] Take one by mouth daily METOPROLOL SUCCINATE 62876372340 Active Robbie Busby MD Active VENLAFAXINE HCL ER 150 MG [id number] Take one by mouth daily VENLAFAXINE HCL 03809821528 Active Robbie Busby MD Active LIPITOR 40 MG TABS Take one by mouth daily ATORVASTATIN CALCIUM 85432912714 Active Robbie Busby MD Active ISOSORBIDE DINITRATE 30 MG TABS Take one by mouth daily ISOSORBIDE DINITRATE 30 MG TABS 973627 ISOSORBIDE DINITRATE Inactive NORVASC 10 MG TAB 1 tablet by mouth daily NORVASC 10 MG TAB 276908 AMLODIPINE BESYLATE Inactive AZITHROMYCIN 250 MG ORAL TABS 2 tablets PO today---then, 1 tablet PO daily x 4 more days (and 1 optional refill) AZITHROMYCIN 250 MG ORAL TABS 8578193 AZITHROMYCIN Inactive CHERATUSSIN AC 100-10 MG/5ML ORAL SOLN 7.5 mL PO q 4-6 hrs PRN cough CHERATUSSIN AC 100-10 MG/5ML ORAL SOLN 593542 GUAIFENESIN- CODEINE Inactive VIIBRYD 40 MG TABS take 1 tab po qday for depression. VIIBRYD 40 MG TABS VILAZODONE HCL Inactive HYDRALAZINE HCL 25 MG TABS 1 tablet by mouth tid for hypertension HYDRALAZINE HCL 25 MG TABS 100665 HYDRALAZINE HCL Inactive SPIRONOLACTONE 50 MG TABS 1 tablet by mouth twice a day SPIRONOLACTONE 50 MG TABS 355284 SPIRONOLACTONE Inactive FENOFIBRATE 145 MG TABS Take one by mouth daily FENOFIBRATE 145 MG TABS 789015 FENOFIBRATE Inactive PROTONIX 40 MG SOLR 1 po qday for acid reflux PROTONIX 40 MG SOLR 201435 PANTOPRAZOLE SODIUM Inactive ZITHROMAX 250 MG TAB 2 po today, then 1 po q days 2-5 ZITHROMAX 250 MG TAB 8291667 AZITHROMYCIN Inactive TERBINAFINE HCL 250 MG TABS 1 tab po qday for foot infection 2014 TERBINAFINE HCL 250 MG TABS 815543 TERBINAFINE HCL Inactive KEFLEX 500 MG CAP 1 po TID x 10 days KEFLEX 500 MG CAP 739827 CEPHALEXIN Inactive Vital Signs Date Name Value [...] Acid - Chemistry sodium, serum 139 mmol/L 587-402 3894/04/22 carbon dioxide, venous blood 29.4 mmol/L 21.0-32.0 [...] PANEL - Chemistry cholesterol, serum 211 mg/dL 930-282 3278/08/31 triglyceride, serum, fasting 429 mg/dL 30-200 HDL [...] to Follow Negative Lab Report: VITAMIN D, 25-HYDROXY/87845 - Chemistry vitamin D 25-hydroxy, serum 23 ng/mL 30-100 Encounters Code Encounter Date Provider Facility CPT-07741 Level 3 Est. Patient 12:38:24 CDT Desmond Diaz DO [facility] CPT-66309 Level 4 Est. 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 CPT-53830 Level 4 Est. Patient 14:50:10 CDT Robbie Busby MD [facility] CPT-21217 Level 4 Est. Patient 23:30:43 CDT Robbie Busby MD [facility] CPT-02427 Level 4 Est. Patient 10:30:43 CDT Robbie Busby MD [facility] CPT-66842 Level 3 Est. Patient 17:08:12 CDT Alex ALVAREZ [facility] CPT-32120 Level 4 Est. Patient 17:51:38 CDT Robbie Busby MD [facility] CPT-97850 Level 4 Est. Patient 14:00:21 CDT Robbie Busby MD [facility] CPT-81303 Level 4 Est. Patient 12:46:48 CDT Robbie Busby MD [facility] CPT-96004 Level 4 Est. Patient 13:34:33 CDT Robbie Busby MD [facility] CPT-28144 Level 4 Est. Patient 16:58:28 CDT Robbie Busby MD [facility] CPT-10092 Level 3 Est. Patient 19:36:53 CDT Alex ALVAREZ [facility] CPT-43074 Level 3 Est. Patient 12:58:15 CDT Robbie Busby MD [facility] Procedures Code Procedure Name Date Entry Date Standard Description CPT-93304 Venipuncture Draw Fee 13:07:17 CDT CPT-G0008 Administration of Influenza Virus Vaccine 16:09:59 CDT CPT-59701 Fluzone Quadrivalent Intramuscular Suspension 0.5 ML 16: 09:59 CDT CPT-63983 Spec Collection and Handling Fee 15:05:50 CDT
--- OUTSIDE RECORDS SUMMARY | 2018-04-18 10:58 | XMS REPORT | Clinical Summary ---
Author Author Admin, E Organization [facility] Address Unknown Phone Unavailable Allergies, Adverse [...] chronic, stage III 585.3 Active Ca Garcia [facility] Chronic kidney disease, Stage III (moderate) C V A / Stroke Active Robbie Busby MD Myocardial Infarction: Active Robbie Busby MD Acute myocardial infarction, unspecified site, initial episode of care ( History of) Sleep apnea, chronic 780.57 Active Erin Garsia [employer] Unspecified sleep apnea Continuous positive airway pressure rx V46.2 Active Erin Garsia [employer] Other dependence on machines, 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 Fatigue 780.79 Resolved Desmond Diaz DO Other malaise and fatigue Hypertension, secondary, 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 Desmond Diaz DO Other malignant secondary hypertension Tachycardia 785.0 Active Rober Rodríguez [employer] Tachycardia, unspecified Insect bite, infected 919.5 Resolved Desmond Diaz DO Insect bite, nonvenomous, of other, multiple, and unspecified sites, infected Abscess, skin 682.9 Resolved Desmond Diaz DO Cellulitis and abscess of unspecified sites URI 465.9 Resolved Desmond Diaz DO Acute upper respiratory infections of unspecified site Hypertension 401.9 Active Rober Rodríguez [employer] Unspecified essential hypertension Sinusitis - acute 461.9 [...] D deficiency Myalgias 729.1 Resolved Desmond Dante Diaz DO Myalgia and myositis, unspecified URI 465.9 Resolved Desmond Dante Diaz DO Acute upper respiratory infections of unspecified site Hypogonadism, low testosterone 257.2 Active Erin Garsia [employer] Other testicular hypofunction Low back pain, chronic 724.2 Active Robbie Busby MD Lumbago Bronchitis-Acute 466.0 Inactive Desmond Dante Joe DO Acute bronchitis Polydipsia 783.5 Active Desmond Dante Joe DO Polydipsia Sinusitis ICD-461.9 Inactive Emily Atwood POWDERMAN 2017 Low back pain, acute ICD-724.2 Inactive Emily Atwood POWDERMAN Low back pain, chronic ICD-724.2 Inactive Emily Atwood POWDERMAN Bronchitis, acute ICD-466.0 Inactive Emily Atwood POWDERMAN Onychomycosis, toenails ICD-110.1 Inactive Emily Atwood POWDERMAN Dizziness ICD-780.4 Inactive Emily Atwood POWDERMAN 2017 Folliculitis ICD-704.8 Inactive Emily Atwood POWDERMAN Pharyngitis-Acute ICD-462 Inactive Emily Atwood POWDERMAN Fatigue ICD-780.79 Inactive Emily Atwood POWDERMAN 09/20 Hypertension, secondary, malignant ICD-405.09 Inactive Emily Atwood POWDERMAN Insect bite, infected ICD-919.5 Inactive Emily Atwood POWDERMAN Abscess, skin ICD-682.9 Inactive Emily Atwood POWDERMAN URI ICD-465.9 Inactive Emily Atwood POWDERMAN Sinusitis - acute ICD-461.9 Inactive Emily Atwood POWDERMAN Acute confusion ICD-293.0 Inactive Emily Atwood POWDERMAN Headache ICD-784.0 Inactive Emily Atwood POWDERMAN 09/20 Back pain ICD-724.5 Inactive Emily Atwood POWDERMAN 2017 Rib pain, right sided ICD-786.50 Inactive Emily Atwood POWDERMAN Myalgias ICD-729.1 Inactive Emily Atwood POWDERMAN 09/20 URI ICD-465.9 Inactive Emily Colónmarianne CISSE Bronchitis-Acute ICD-466.0 Inactive Desmond Diaz DO Medication List Medication Instructions Start Date Stop Date Generic Name NDC Status Provider Patient Instruction PREDNISONE 20 MG ORAL TABLET two tabs by mouth today, then one tab by mouth days two and three PREDNISONE 53446322659 Active Desmond Diaz DO Active AZITHROMYCIN 250 MG ORAL TABLET 2 po qd x 1 day, then 1 po qd x 4 days 09/20 AZITHROMYCIN 43422540080 No Longer Active Desmond Diaz DO Active TOPIRAMATE 50 MG ORAL TABLET take 1 tab po BID for migraines. TOPIRAMATE 76595834819 No Longer Active Desmond Diaz DO Active CYCLOBENZAPRINE HCL 10 MG ORAL TABLET 1 po TID PRN muscle spasm/pain for 10 days CYCLOBENZAPRINE HCL 06340837552 No Longer Active Desmond Diaz DO Active GUAIFENESIN ER 600 MG ORAL TABLET EXTENDED RELEASE 12 HOUR 1 tab po q am 2016 GUAIFENESIN 77612765942 No Longer Active Robbie Busby MD Active DIVALPROEX SODIUM ER 500 MG ORAL TABLET EXTENDED RELEASE 24 HOUR Once daily DIVALPROEX SODIUM 63491961715 Active Robbie Busby MD Active DEPO-TESTOSTERONE 200 MG/ML INTRAMUSCULAR SOLUTION 1 IM Injections every 2 weeks for low testosterone TESTOSTERONE CYPIONATE 88673444233 Active Zulema Blank LPN Active FLUTICASONE PROPIONATE 50 MCG/ACT NASAL SUSPENSION 2 sprays per nostril bid for 1 week, then 1 spray bid FLUTICASONE PROPIONATE 07953041309 Active Rober Rodríguez APRN Active HYDRALAZINE HCL 25 MG ORAL TABLET Take 1 tab BID. HYDRALAZINE HCL 78481146381 Active Rober Rodríguez APRN Active VITAMIN D3 37378 UNIT ORAL TABLET 2 po weekly CHOLECALCIFEROL 14489191790 Active Robbie Busby MD Active OXYCODONE HCL ER 10 MG ORAL TABLET ER 12 HOUR ABUSE-DETERRENT 1 tab po 3 times qd. OXYCODONE HCL 12898257595 Active Robbie Busby MD Active NITROSTAT 0.4 MG SUBLINGUAL TABLET SUBLINGUAL PRN NITROGLYCERIN 57788246175 No Longer Active Robbie Busby MD Active LORATADINE 10 MG ORAL TABLET 1 tablet by mouth daily for congestion and allergies. LORATADINE 20946848866 No Longer Active Robbie Busby MD Active FLONASE 50 MCG/ACT NASAL SUSPENSION 1 spray each nostril twice daily for allergies and runny nose FLUTICASONE PROPIONATE 09749666264 No Longer Active Robbie Busby MD Active FIORICET 50-300-40 MG ORAL CAPSULE take 1 tab po qday prn migraines. [id number] 50371298498 No Longer Active Robbie Busby MD Active VITAMIN D3 49643 UNIT ORAL CAPSULE 2 CAPS PO WEEKLY CHOLECALCIFEROL 55716536466 No Longer Active Robbie Busby MD Active CYCLOBENZAPRINE HCL 10 MG ORAL TABLET 1 tablet by mouth three times daily as needed for muscle spasm/pain for 10 days CYCLOBENZAPRINE HCL 60265283330 No Longer Active Robbie Busby MD Active PREDNISONE 20 MG ORAL TABLET take 3 tabs daily for 3 days, 2 tabs daily for 3 days, 1 tab daily for 3 days, 1/2 tab daily for 4 days PREDNISONE 60119717345 No Longer Active Erin Garsia APRN Active CLONIDINE HCL 0.2 MG ORAL TABLET 1 TAB BY MOUTH EVERY 8 HOURS CLONIDINE HCL 85978524527 No Longer Active Erin Garsia APRN Active MECLIZINE HCL 25 MG ORAL TABLET one 4 times a day as needed for dizziness MECLIZINE HCL 81728645200 No Longer Active Erin Garsia APRN Active SPIRONOLACTONE 25 MG ORAL TABLET 4 tablets by mouth daily SPIRONOLACTONE 93680940689 No Longer Active Erin Garsia APRN Active LEVAQUIN 500 MG ORAL TABLET 1 tablet by mouth daily for 7 days LEVOFLOXACIN 14335917483 No Longer Active Erin Garsia APRN Active BACTRIM DS 800-160 MG ORAL TABLET 1 tab by mouth twice daily 2015 TRIMETHOPRIM-SULFAMETHOXAZOLE 49157783273 No Longer Active Robbie Busby MD Active HYDRALAZINE HCL 50 MG ORAL TABLET TWO BY MOUTH THREE TIMES DAILY HYDRALAZINE HCL 24176845398 No Longer Active 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 [employer]CH[employer]IC Active HYDROCODONE-ACETAMINOPHEN 5-325 MG ORAL TABLET 1 tab by mouth BID prn back pain HYDROCODONE-ACETAMINOPHEN 80886081043 No Longer Active 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 [employer]INE MECH[employer]IC Active HYDROCHLOROTHIAZIDE TABLET Take one by mouth daily HYDROCHLOROTHIAZIDE TABS 69737057697 No Longer Active 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 [employer]INE MECH[employer]IC Active LAMISIL 125 MG ORAL PACKET 1 TAB PO DAILY TERBINAFINE HCL 27828490910 No Longer Active 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 [employer] ENGINE MECH[employer]IC Active TRILEPTAL 150 MG ORAL TABLET 1 TAB PO Q HS OXCARBAZEPINE 23127397033 No Longer Active 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 [employer] ENGINE MECH[employer]IC Active BETADINE 10 % EXTERNAL SOLUTION 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 07/29 POVIDONE-IODINE 98273007314 No Longer Active 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 [employer] ENGINE MECHANIC Active NYSTATIN 721951 UNIT/ML MOUTH/THROAT SUSPENSION 5mL po QID x 10 days NYSTATIN 14570317587 No Longer Active Erin Garsia APRN Active PREDNISONE 20 MG ORAL TABLET 1 tablet twice daily for 2 days, then 1 tablet once daily for 2 days PREDNISONE 67721998306 No Longer Active Robbie Busby MD Active CEFDINIR 300 MG ORAL CAPSULE Take 1 cap po bid x 10 days CEFDINIR 13120297862 No Longer Active Robbie Busby MD Active AMLODIPINE BESYLATE 10 MG ORAL TABLET 1 tablet by mouth daily AMLODIPINE BESYLATE 40600073358 Active Robbie Busby MD Active CARVEDILOL 25 MG ORAL TABLET 1 & 1/2 TAB po BID CARVEDILOL 02264457248 Active Robbie Busby MD Active NEXIUM 40 MG ORAL CAPSULE DELAYED RELEASE 1 cap by mouth daily ESOMEPRAZOLE MAGNESIUM 29171689482 Active Robbie Busby MD Active PROTONIX 40 MG INTRAVENOUS SOLUTION RECONSTITUTED 1 po qday for acid reflux PANTOPRAZOLE SODIUM 49891486756 No Longer Active Gali Raida Active KEFLEX 500 MG ORAL CAPSULE 1 po TID x 10 days CEPHALEXIN 20104618492 No Longer Active Robbie Busby MD Active TEMAZEPAM 15 MG ORAL CAPSULE 1 TAB PO Q HS TEMAZEPAM 84712631821 Active Robbie Busby MD Active ALPRAZOLAM 2 MG ORAL TABLET 1 TAB PO BID ALPRAZOLAM 61592235655 Active Robbie Busby MD Active FENOFIBRATE 145 MG ORAL TABLET Take one by mouth daily FENOFIBRATE 02628557788 No Longer Active Robbie Busby MD Active SPIRONOLACTONE 50 MG ORAL TABLET 1 tablet by mouth twice a day SPIRONOLACTONE 21359160861 No Longer Active Robbie Busby MD Active HYDRALAZINE HCL 25 MG ORAL TABLET 1 tablet by mouth tid for hypertension 2013 HYDRALAZINE HCL 08784304450 No Longer Active Robbie Busby MD Active VIIBRYD 40 MG ORAL TABLET take 1 tab po qday for depression. 2014 VILAZODONE HCL 66339972788 No Longer Active Robbie Busby MD Active TERBINAFINE HCL 250 MG ORAL TABLET 1 tab po qday for foot infection TERBINAFINE HCL 16578461351 No Longer Active Robbie Busby MD Active GABAPENTIN 300 MG ORAL CAPSULE 1 po q hs for nerve pain GABAPENTIN 29675835860 Active Robbie Busby MD Active CHERATUSSIN AC 100-10 MG/5ML ORAL SOLUTION 7.5 mL PO q 4-6 hrs PRN cough 2014 GUAIFENESIN-CODEINE 58797568585 No Longer Active Robbie Busby MD Active AZITHROMYCIN 250 MG ORAL TABLET 2 tablets PO today---then, 1 tablet PO daily x 4 more days (and 1 optional refill) AZITHROMYCIN 35047172592 No Longer Active Robbie Busby MD Active NORVASC 10 MG ORAL TABLET 1 tablet by mouth daily AMLODIPINE BESYLATE 21113432952 No Longer Active Alex ALVAREZ Active IMDUR 60 MG ORAL TABLET EXTENDED RELEASE 24 HOUR take 1 tab po qday for blood pressure ISOSORBIDE MONONITRATE 56305275723 Active Robbie Busby MD Active ISOSORBIDE DINITRATE 30 MG ORAL TABLET Take one by mouth daily ISOSORBIDE DINITRATE 22541833510 No Longer Active Robbie Busby MD Active VIIBRYD 40 MG ORAL TABLET 1 TA B PO DAILY VILAZODONE HCL 18319540556 Active Robbie Busby MD Active ZITHROMAX 250 MG ORAL TABLET 2 po today, then 1 po q days 2-5 AZITHROMYCIN 89668273211 No Longer Active Robbie Busby MD Active [id number] 0.3 MG/24HR TRANSDERMAL PATCH WEEKLY apply 2 patches q week for HTN CLONIDINE HCL 51833910289 Active Robbie Busby MD Active DOXAZOSIN MESYLATE 4 MG ORAL TABLET Take one by mouth daily DOXAZOSIN MESYLATE 53086301176 Active Robbie Busby MD Active TOPROL XL 200 MG ORAL TABLET EXTENDED RELEASE 24 HOUR Take one by mouth daily METOPROLOL SUCCINATE 85652668099 Active Robbie Busby MD Active VENLAFAXINE HCL ER 150 MG ORAL TABLET EXTENDED RELEASE 24 HOUR Take one by mouth daily VENLAFAXINE HCL 28322380131 Active Robbie Busby MD Active LIPITOR 40 MG ORAL TABLET Take one by mouth daily ATORVASTATIN CALCIUM 34905720657 Active Robbie Busby MD Active ISOSORBIDE DINITRATE 30 MG ORAL TABLET Take one by mouth daily ISOSORBIDE DINITRATE 30 MG ORAL TABLET 789677 ISOSORBIDE DINITRATE Inactive NORVASC 10 MG ORAL TABLET 1 tablet by mouth daily NORVASC 10 MG ORAL TABLET 034673 AMLODIPINE BESYLATE Inactive AZITHROMYCIN 250 MG ORAL TABLET 2 tablets PO today---then, 1 tablet PO daily x 4 more days (and 1 optional refill) AZITHROMYCIN 250 MG ORAL TABLET 458047 AZITHROMYCIN Inactive CHERATUSSIN AC 100-10 MG/5ML ORAL SOLUTION 7.5 mL PO q 4-6 hrs PRN cough 2014 CHERATUSSIN AC 100-10 MG/5ML ORAL SOLUTION 261161 GUAIFENESIN-CODEINE Inactive VIIBRYD 40 MG ORAL TABLET take 1 tab po qday for depression. 2014 VIIBRYD 40 MG ORAL TABLET VILAZODONE HCL Inactive HYDRALAZINE HCL 25 MG ORAL TABLET 1 tablet by mouth tid for hypertension 2013 HYDRALAZINE HCL 25 MG ORAL TABLET 396950 HYDRALAZINE HCL Inactive SPIRONOLACTONE 50 MG ORAL TABLET 1 tablet by mouth twice a day SPIRONOLACTONE 50 MG ORAL TABLET 947039 SPIRONOLACTONE Inactive FENOFIBRATE 145 MG ORAL TABLET Take one by mouth daily FENOFIBRATE 145 MG ORAL TABLET 278495 FENOFIBRATE Inactive PROTONIX 40 MG INTRAVENOUS SOLUTION RECONSTITUTED 1 po qday for acid reflux PROTONIX 40 MG INTRAVENOUS SOLUTION RECONSTITUTED 353859 PANTOPRAZOLE SODIUM Inactive CEFDINIR 300 MG ORAL CAPSULE Take 1 cap po bid x 10 days CEFDINIR 300 MG ORAL CAPSULE 111582 CEFDINIR Inactive PREDNISONE 20 MG ORAL TABLET 1 tablet twice daily for 2 days, then 1 tablet once daily for 2 days PREDNISONE 20 MG ORAL TABLET 165760 PREDNISONE Inactive NYSTATIN 858645 UNIT/ML MOUTH/THROAT SUSPENSION 5mL po QID x 10 days NYSTATIN 885848 UNIT/ML MOUTH/THROAT SUSPENSION 618365 NYSTATIN Inactive BETADINE 10 % EXTERNAL SOLUTION 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 07/29 BETADINE 10 % EXTERNAL SOLUTION 9492947 POVIDONE-IODINE Inactive TRILEPTAL 150 MG ORAL TABLET 1 TAB PO Q HS TRILEPTAL 150 MG ORAL TABLET 582949 OXCARBAZEPINE Inactive LAMISIL 125 MG ORAL PACKET 1 TAB PO DAILY LAMISIL 125 MG ORAL PACKET TERBINAFINE HCL Inactive HYDROCHLOROTHIAZIDE TABLET Take one by mouth daily HYDROCHLOROTHIAZIDE TABLET HYDROCHLOROTHIAZIDE TABS Inactive HYDROCODONE-ACETAMINOPHEN 5-325 MG ORAL TABLET 1 tab by mouth BID prn back pain HYDROCODONE-ACETAMINOPHEN 5-325 MG ORAL TABLET 211694 HYDROCODONE-ACETAMINOPHEN Inactive HYDRALAZINE HCL 50 MG ORAL TABLET TWO BY MOUTH THREE TIMES DAILY HYDRALAZINE HCL 50 MG ORAL TABLET 739961 HYDRALAZINE HCL Inactive LEVAQUIN 500 MG ORAL TABLET 1 tablet by mouth daily for 7 days LEVAQUIN 500 MG ORAL TABLET 537244 LEVOFLOXACIN Inactive SPIRONOLACTONE 25 MG ORAL TABLET 4 tablets by mouth daily SPIRONOLACTONE 25 MG ORAL TABLET 504907 SPIRONOLACTONE Inactive MECLIZINE HCL 25 MG ORAL TABLET one 4 times a day as needed for dizziness MECLIZINE HCL 25 MG ORAL TABLET 130546 MECLIZINE HCL Inactive CLONIDINE HCL 0.2 MG ORAL TABLET 1 TAB BY MOUTH EVERY 8 HOURS CLONIDINE HCL 0.2 MG ORAL TABLET 297374 CLONIDINE HCL Inactive CYCLOBENZAPRINE HCL 10 MG ORAL TABLET 1 tablet by mouth three times daily as needed for muscle spasm/pain for 10 days CYCLOBENZAPRINE HCL 10 MG ORAL TABLET 321191 CYCLOBENZAPRINE HCL Inactive VITAMIN D3 71913 UNIT ORAL CAPSULE 2 CAPS PO WEEKLY VITAMIN D3 25289 UNIT ORAL CAPSULE CHOLECALCIFEROL Inactive FIORICET 50-300-40 MG ORAL CAPSULE take 1 tab po qday prn migraines. FIORICET 50-300-40 MG ORAL CAPSULE 226088 BUTALBITAL-APAP- CAFFEINE Inactive FLONASE 50 MCG/ACT NASAL SUSPENSION 1 spray each nostril twice daily for allergies and runny nose FLONASE 50 MCG/ACT NASAL SUSPENSION 8580519 FLUTICASONE PROPIONATE Inactive LORATADINE 10 MG ORAL TABLET 1 tablet by mouth daily for congestion and allergies. LORATADINE 10 MG ORAL TABLET 701545 LORATADINE Inactive NITROSTAT 0.4 MG SUBLINGUAL TABLET SUBLINGUAL PRN NITROSTAT 0.4 MG SUBLINGUAL TABLET SUBLINGUAL 819890 NITROGLYCERIN Inactive GUAIFENESIN ER 600 MG ORAL TABLET EXTENDED RELEASE 12 HOUR 1 tab po q am 2016 GUAIFENESIN ER 600 MG ORAL TABLET EXTENDED RELEASE 12 HOUR GUAIFENESIN Inactive CYCLOBENZAPRINE HCL 10 MG ORAL TABLET 1 po TID PRN muscle spasm/pain for 10 days CYCLOBENZAPRINE HCL 10 MG ORAL TABLET 740689 CYCLOBENZAPRINE HCL Inactive TOPIRAMATE 50 MG ORAL TABLET take 1 tab po BID for migraines. TOPIRAMATE 50 MG ORAL TABLET 462734 TOPIRAMATE Inactive ZITHROMAX 250 MG ORAL TABLET 2 po today, then 1 po q days 2-5 ZITHROMAX 250 MG ORAL TABLET 698770 AZITHROMYCIN Inactive TERBINAFINE HCL 250 MG ORAL TABLET 1 tab po qday for foot infection TERBINAFINE HCL 250 MG ORAL TABLET 257040 TERBINAFINE HCL Inactive KEFLEX 500 MG ORAL CAPSULE 1 po TID x 10 days KEFLEX 500 MG ORAL CAPSULE 023021 CEPHALEXIN Inactive BACTRIM DS 800-160 MG ORAL TABLET 1 tab by mouth twice daily 2015 BACTRIM DS 800-160 MG ORAL TABLET 836347 TRIMETHOPRIM- SULFAMETHOXAZOLE Inactive PREDNISONE 20 MG ORAL TABLET take 3 tabs daily for 3 days, 2 tabs daily for 3 days, 1 tab daily for 3 days, 1/2 tab daily for 4 days PREDNISONE 20 MG ORAL TABLET 370193 PREDNISONE Inactive AZITHROMYCIN 250 MG ORAL TABLET 2 po qd x 1 day, then 1 po qd x 4 days 09/20 AZITHROMYCIN 250 MG ORAL TABLET 537296 AZITHROMYCIN Inactive Advance Directives Directive Description Start [...] AUTO - Chemistry sodium, serum 142 mmol/L 663-043 8377/07/17 carbon dioxide, venous blood 28.2 mmol/L 21.0-32.0 [...] % 11.0-15.0 platelet count 185 THOUSAND/UL 10*3/mm3 054-211 8069/04/14 mean platelet volume 10.9 fL 7.5-12.5 Lab Report: HGBA1C, Basic Metabolic Panel - Chemistry hemoglobin A1C, blood, as % of total hemoglobin 6.9 % 4.3-6.0 sodium, serum 139 mmol/L 768-041 4874/01/04 potassium, serum 3.9 mmol/L 3.5-5.2 chloride, serum 103 mmol/L 98-107 carbon dioxide, venous blood 26.9 mmol/L 21.0-32.0 blood glucose 106 mg/dL 65-110 calcium, serum 9.0 mg/dL 8.5-10.1 urea nitrogen, blood 20 mg/dL 7-18 creatinine, serum 1.46 mg/dL 0.60-1.30 Lab Report: LIPID PANEL, TSH/899, T4, FREE/866 - Chemistry cholesterol, serum 220 mg/dL 391-398 9393/04/14 HDL cholesterol, serum 30 mg/dL > OR=40 [...] 1.80 ng/mL 0.00-4.00 Lab Report: VITAMIN D, 25-HYDROXY/68911 - Chemistry vitamin D 25-hydroxy, serum 25 ng/mL 30-100 Office Visit: Confusion, dizziness after fall - Basic LDL target level 130 mg/dL Office Visit: Confusion, dizziness after fall - Chemistry HDL cholesterol, serum, target level 40 mg/dL triglyceride, target level 150 mg/dL cholesterol, target level 200 mg/dL Encounters Code Encounter Date Provider Facility CPT-09377 Level 4 Est. 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 Patient 15:40:49 CDT Robbie Busby MD [facility] CPT-33576 Level 4 Est. Patient 15:18:19 CDT Robbie Busby MD [facility] CPT-23834 Level 3 Est. Patient 09:00:37 CDT Rober Rodríguez [facility] CPT-36497 Level 3 Est. Patient 16:07:10 CDT Robbie Busby MD [facility] CPT-27575 Level 4 Est. Patient 11:56:16 CDT Erin Garsia [facility] CPT-55661 Level 3 Est. Patient 17:48:02 CDT Robbie Busby MD [facility] CPT-19028 Level 4 Est. Patient 12:00:49 [employer]IM [employer] C[employer] Rober Rodríguez [facility] CPT-15698 Level 3 Est. Patient 09:16:37 CDT Robbie Busby MD [facility] CPT-19799 Level 3 Est. Patient 19:38:43 CDT Robbie Busby MD [facility] CPT-46153 Level 3 Est. Patient 11:53:38 CDT Robbie Busby MD [facility]-05494 Level 4 Est. Patient 12:52:22 CDT Rober Rodríguez APRN [facility]-55964 Level 4 Est. Patient 22:55:17 CDT Robbie Busby MD [facility]-34596 Level 3 Est. Patient 12:38:24 CDT Desmond Diaz DO [facility]-39820 Level 4 Est. Patient 11:25:03 [employer]IM [employer] C[employer]TER Robbie Busby MD [facility]-88743 Level 4 Est. Patient 14:50:10 CDT Robbie Busby MD [facility]-74379 Level 4 Est. Patient 23:30:43 CDT Robbie Busby MD [facility]-57875 Level 4 Est. Patient 10:30:43 CDT Robbie Busby MD [facility] CPT-51787 Level 3 Est. Patient 17:08:12 CDT Alex ALVAREZ [facility] CPT-55597 Level 4 Est. Patient 17:51:38 CDT Robbie Busby MD [facility]-30099 Level 4 Est. Patient 14:00:21 CDT Robbie Busby MD [facility]-01855 Level 4 Est. Patient 12:46:48 CDT Robbie Busby MD [facility]-49371 Level 4 Est. Patient 13:34:33 CDT Robbie Busby MD [facility]-15736 Level 4 Est. Patient 16:58:28 CDT Robbie Busby MD [facility]-88570 Level 3 Est. Patient 19:36:53 CDT Alex ALVAREZ [facility] CPT-99894 Level 3 Est. Patient 12:58:15 CDT Robbie Busby MD [facility] Procedures Code Procedure Name Date Entry Date Standard Description CPT-J1071 Depo Testosterone 200mg 15:33:58 [employer] CPT-31727 Abx/Therapy Injection 15:33:58 [employer]IM [employer] C[employer]TER CPT-J1071 Depo Testosterone 200mg 09:38:36 [employer]IM [employer] CPT-00711 Abx/Therapy Injection 09:38:36 SHIM PL[employer] C[employer]TER CPT-J1071 Depo Testosterone 200mg 10:22:56 [employer]IM [employer] C[employer] CPT-98996 Abx/Therapy Injection 10:22:56 [employer]IM [employer] C[employer] CPT-J1071 Depo Testosterone 200mg 15:40:23 CDT CPT-73002 Abx/Therapy Injection 15:40:23 CDT CPT-J1071 Depo Testosterone 200mg 14:20:43 CDT CPT-87917 Abx/Therapy Injection 14:20:43 CDT CPT-J1071 Depo Testosterone 200mg 14:17:22 CDT CPT-68206 Abx/Therapy Injection 14:17:22 CDT CPT-J1071 Depo Testosterone 200mg 09:03:53 CDT CPT-71332 Abx/Therapy Injection 09:03:53 CDT CPT-G0439 [facility] Annual Wellness Exam 16:47:44 CDT CPT-J1071 Depo Testosterone 200mg 09:06:28 CDT CPT-54521 Abx/Therapy Injection 09:06:28 CDT CPT-J1071 Depo Testosterone 200mg 08:30:01 CDT CPT-87190 Abx/Therapy Injection 08:30:01 CDT CPT-J1071 Depo Testosterone 200mg 08:24:00 CDT CPT-03069 Abx/Therapy Injection 08:24:00 CDT CPT-79240 Venipuncture Draw Fee 14:39:06 CDT CPT-17071 Ribs unilateral 2V - XRAY USE ONLY 12:10:11 CDT CPT-66513 First Vx - Ix admin for Medicare patients 16:32:53 CDT CPT-11101 Boostrix Intramuscular Suspension 5-2.5-18.5 16:32:53 CDT CPT-44355 TB Skin Test 11:42:28 CDT CPT-85735 Tdap 7yrs or > 11:42:28 CDT CPT-J0696 Rocephin 1000 mg (Ceftriaxone) 17:43:43 [employer]IM PLUG C[employer]TER CPT-J1040 Depo Medrol 80 mg (Methyl Prednisolone Acetate) 17:43: 43 [employer]IM PLUG CUTTER CPT-J1100 Decadron 8mg (Dexamethasone) 17:43:42 SHIM PLUG C[employer]TER CPT-36233 Abx/Therapy Injection 17:43:42 SHIM PLUG C[employer]TER CPT-88547 Abx/Therapy Injection 17:43:42 SHIM PLUG C[employer]TER CPT-J1040 Depo Medrol 80 mg (Methyl Prednisolone Acetate) 09:43: 34 SHIM PLUG C[employer]TER CPT-J1100 Decadron 8mg (Dexamethasone) 09:43:34 SHIM PLUG C[employer]TER CPT-J0696 Rocephin 1gm Inj Solr 09:43:34 SHIM PLUG CUTTER CPT-33389 Wound Culture - LAB USE ONLY 14:00:21 CDT CPT-I/D I/D Abscess 09:16:37 CDT CPT-84854 Venipuncture Draw Fee 15:20:23 CDT CPT-70029 Microalbumin - LAB USE ONLY 16:02:19 CDT CPT-13075 CBC - LAB USE ONLY 16:02:19 CDT CPT-94326 Venipuncture Draw Fee 16:02:19 CDT CPT-G0438 Initial Annual Wellness Exam 08:10:28 CDT CPT-73022 Venipuncture Draw Fee 13:07:17 CDT CPT-G0008 Administration of Influenza Virus Vaccine 16:09:59 CDT CPT-49016 Fluzone Quadrivalent Intramuscular Suspension 0.5 ML 16: 09:59 CDT CPT-16455 Spec Collection and Handling Fee 15:05:50 CDT
--- OUTSIDE RECORDS SUMMARY | 2018-04-18 10:59 | XMS REPORT | Clinical Summary ---
Author Author Admin, Nicolas Organization [employer] 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 [id number] 92580150275 Active Robbie Busby MD Active TOPIRAMATE 50 MG ORAL TABS take 1 tab po BID for migraines. TOPIRAMATE 46067295856 Active Robbie Busby MD Active HYDRALAZINE HCL 50 MG ORAL TABS TWO BY MOUTH THREE TIMES DAILY HYDRALAZINE HCL 85993480486 Active Robbie Busby MD Active MECLIZINE HCL 25 MG TAB one 4 times a day as needed for dizziness MECLIZINE HCL 96666456386 Active Robbie Busby MD Active TRILEPTAL 150 MG ORAL TABS 1 TAB PO Q HS OXCARBAZEPINE 42017232366 Active Robbie Busby MD Active TEMAZEPAM 15 MG ORAL CAPS 1 TAB PO Q HS TEMAZEPAM 54845374859 Active Robbie Busby MD Active ALPRAZOLAM 2 MG ORAL TABS 1 TAB PO BID ALPRAZOLAM 69012838422 Active Robbie Busby MD Active FENOFIBRATE 145 MG TABS Take one by mouth daily FENOFIBRATE 08088432641 No Longer Active Robbie Busby MD Active LAMISIL 125 MG ORAL PACK 1 TAB PO DAILY TERBINAFINE HCL 48693519593 Active Robbie Busby MD Active SPIRONOLACTONE 50 MG TABS 1 tablet by mouth twice a day SPIRONOLACTONE 57951971294 No Longer Active Robbie Busby MD Active HYDRALAZINE HCL 25 MG TABS 1 tablet by mouth tid for hypertension HYDRALAZINE HCL 34747008739 No Longer Active Robbie Busby MD Active VIIBRYD 40 MG TABS take 1 tab po qday for depression. VILAZODONE HCL 78262683130 No Longer Active Robbie Busby MD Active TERBINAFINE HCL 250 MG TABS 1 tab po qday for foot infection 2014 TERBINAFINE HCL 53535457985 No Longer Active Robbie Busby MD Active GABAPENTIN 300 MG CAPS 1 po q hs for nerve pain GABAPENTIN 24034166955 Active Erin Garsia APRN Active FLONASE 50 MCG/ACT SUSP 1 spray each nostril twice daily for allergies and runny nose FLUTICASONE PROPIONATE 33330490356 Active Robbie Busby MD Active CHERATUSSIN AC 100-10 MG/5ML ORAL SOLN 7.5 mL PO q 4-6 hrs PRN cough GUAIFENESIN-CODEINE 66972729628 No Longer Active Robbie Busby MD Active AZITHROMYCIN 250 MG ORAL TABS 2 tablets PO today---then, 1 tablet PO daily x 4 more days (and 1 optional refill) AZITHROMYCIN 57150694907 No Longer Active Robbie Busby MD Active CLONIDINE HCL 0.2 MG ORAL TABS 1 TAB BY MOUTH EVERY 8 HOURS CLONIDINE HCL 05703443445 Active Robbie Busby MD Active HYDROCHLOROTHIAZIDE TABS Take one by mouth daily HYDROCHLOROTHIAZIDE TABS 68064958514 Active Alex ALVAREZ Active NORVASC 10 MG TAB 1 tablet by mouth daily AMLODIPINE BESYLATE 94764538768 No Longer Active Alex ALVAREZ Active IMDUR 60 MG TAB CR take 1 tab po qday for blood pressure ISOSORBIDE MONONITRATE Active Robbie Busby MD Active ISOSORBIDE DINITRATE 30 MG TABS Take one by mouth daily ISOSORBIDE DINITRATE 44865056217 No Longer Active Robbie Busby MD Active VIIBRYD 40 MG TABS 1 TA B PO DAILY VILAZODONE HCL 82232934888 Active Robbie Busby MD Active LORATADINE 10 MG TABS 1 tablet by mouth daily for congestion and allergies. LORATADINE 04063833864 Active Robbie Busby MD Active ZITHROMAX 250 MG TAB 2 po today, then 1 po q days 2-5 AZITHROMYCIN 03648518952 No Longer Active Robbie Busby MD Active HYDROCODONE-ACETAMINOPHEN 5-325 MG TABS 1 tab by mouth BID prn back pain 2013 HYDROCODONE-ACETAMINOPHEN 95538999913 Active Robbie Busby MD Active [id number] 0.3 MG/24HR PTWK apply 2 patches q week for HTN CLONIDINE HCL 12303777019 Active Robbie Busby MD Active NITROSTAT 0.4 MG SUBL PRN NITROGLYCERIN 85711819781 Active Robbie Busby MD Active DOXAZOSIN MESYLATE 4 MG TABS Take one by mouth daily DOXAZOSIN MESYLATE 96072992366 Active Robbie Busby MD Active TOPROL XL 200 MG [id number] Take one by mouth daily METOPROLOL SUCCINATE 49571194206 Active Robbie Busby MD Active VENLAFAXINE HCL ER 150 MG [id number] Take one by mouth daily VENLAFAXINE HCL 87854680938 Active Robbie Busby MD Active LIPITOR 40 MG TABS Take one by mouth daily ATORVASTATIN CALCIUM 30437904090 Active Robbie Busby MD Active ISOSORBIDE DINITRATE 30 MG TABS Take one by mouth daily ISOSORBIDE DINITRATE 30 MG TABS 430699 ISOSORBIDE DINITRATE Inactive NORVASC 10 MG TAB 1 tablet by mouth daily NORVASC 10 MG TAB 984226 AMLODIPINE BESYLATE Inactive AZITHROMYCIN 250 MG ORAL TABS 2 tablets PO today---then, 1 tablet PO daily x 4 more days (and 1 optional refill) AZITHROMYCIN 250 MG ORAL TABS 2134870 AZITHROMYCIN Inactive CHERATUSSIN AC 100-10 MG/5ML ORAL SOLN 7.5 mL PO q 4-6 hrs PRN cough CHERATUSSIN AC 100-10 MG/5ML ORAL SOLN 271476 GUAIFENESIN- CODEINE Inactive VIIBRYD 40 MG TABS take 1 tab po qday for depression. VIIBRYD 40 MG TABS VILAZODONE HCL Inactive HYDRALAZINE HCL 25 MG TABS 1 tablet by mouth tid for hypertension HYDRALAZINE HCL 25 MG TABS 834737 HYDRALAZINE HCL Inactive SPIRONOLACTONE 50 MG TABS 1 tablet by mouth twice a day SPIRONOLACTONE 50 MG TABS 398520 SPIRONOLACTONE Inactive FENOFIBRATE 145 MG TABS Take one by mouth daily FENOFIBRATE 145 MG TABS 549284 FENOFIBRATE Inactive PROTONIX 40 MG SOLR 1 po qday for acid reflux PROTONIX 40 MG SOLR PANTOPRAZOLE SODIUM Inactive ZITHROMAX 250 MG TAB 2 po today, then 1 po q days 2-5 ZITHROMAX 250 MG TAB 1838654 AZITHROMYCIN Inactive TERBINAFINE HCL 250 MG TABS 1 tab po qday for foot infection 2014 TERBINAFINE HCL 250 MG TABS 944155 TERBINAFINE HCL Inactive KEFLEX 500 MG CAP 1 po TID x 10 days KEFLEX 500 MG CAP 772054 CEPHALEXIN Inactive Vital Signs Date Name Value [...] PANEL - Chemistry cholesterol, serum 211 mg/dL 492-993 4563/08/31 triglyceride, serum, fasting 429 mg/dL 30-200 HDL cholesterol, serum 25 mg/dL 32-96 LDL cholesterol, serum 100 mg/dL 0-130 aspartate aminotransferase (SGOT), serum 19 U/L 15-37 alanine aminotransferase (SGPT), serum 32 U/L 12-78 bilirubin, serum, total 0.70 mg/dL 0.00-1.00 Lab Report: Prostatic Specific Ag - Chemistry prostate specific antigen 1.31 ng/mL 0.00-4.00 Encounters Code Encounter Date Provider Facility CPT-44455 Level 3 Est. Patient 12:38:24 CDT Desmond Diaz DO [facility] CPT-16629 Level 4 Est. Patient 11:25:03 [employer] Robbie Busby MD [facility] CPT-54463 Level 4 Est. Patient 14:50:10 CDT Robbie Busby MD [facility] CPT-39175 Level 4 Est. Patient 23:30:43 CDT Robbie Busby MD [facility] CPT-36278 Level 4 Est. Patient 10:30:43 CDT Robbie Busby MD [facility] CPT-81852 Level 3 Est. Patient 17:08:12 CDT Alex Shaw [facility] CPT-95984 Level 4 Est. Patient 17:51:38 CDT Robbie Busby MD [facility] CPT-96198 Level 4 Est. Patient 14:00:21 CDT Robbie Busby MD [facility] CPT-10539 Level 4 Est. Patient 12:46:48 CDT Robbie Busby MD [facility] CPT-15385 Level 4 Est. Patient 13:34:33 CDT Robbie Busby MD [facility] CPT-31565 Level 4 Est. Patient 16:58:28 CDT Robbie Busby MD [facility] CPT-66581 Level 3 Est. Patient 19:36:53 CDT Alex ALVAREZ [facility] CPT-24029 Level 3 Est. Patient 12:58:15 CDT Robbie Busby MD [facility] Procedures Code Procedure Name Date Entry Date Standard Description CPT-G0008 Administration of Influenza Virus Vaccine 16:09:59 CDT CPT-95631 Fluzone Quadrivalent Intramuscular Suspension 0.5 ML 16: 09:59 CDT CPT-42244 Spec Collection and Handling Fee 15:05:50 CDT
--- OUTSIDE RECORDS SUMMARY | 2018-04-18 10:59 | XMS REPORT | Clinical Summary ---
Author Author Admin, [facility] Organization [facility] Address Unknown Phone Unavailable Allergies, [...] MD Lumbago Degenerative arthritis 715.90 Active Robbie Busyb MD Osteoarthrosis, unspecified whether generalized or localized, [...] 1 tab by mouth twice daily TRIMETHOPRIM-SULFAMETHOXAZOLE 12380208961 No Longer Active Robbie Busby MD Active SPIRONOLACTONE 25 MG TAB 4 tablets by mouth daily SPIRONOLACTONE 98968248844 Active Robbie Busby MD Active HYDRALAZINE HCL 50 MG ORAL TABS TWO BY MOUTH THREE TIMES DAILY HYDRALAZINE HCL 76725640165 No Longer Active 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 [employer] Active HYDROCODONE-ACETAMINOPHEN 5-325 MG TABS 1 tab by mouth BID prn back pain 2013 HYDROCODONE-ACETAMINOPHEN 25595155275 No Longer Active 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 [employer] Active HYDROCHLOROTHIAZIDE TABS Take one by mouth daily HYDROCHLOROTHIAZIDE TABS 17190149189 No Longer Active 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 [employer] Active LAMISIL 125 MG ORAL PACK 1 TAB PO DAILY TERBINAFINE HCL 13894375918 No Longer Active 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 [employer] Active TRILEPTAL 150 MG ORAL TABS 1 TAB PO Q HS OXCARBAZEPINE 01514826804 No Longer Active 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 [employer] Active BETADINE 10 % EXT SOLN 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 POVIDONE-IODINE 95739258584 No Longer Active 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 [employer] Active NYSTATIN 048983 UNIT/ML M/T SUSP 5mL po QID x 10 days NYSTATIN 52077587182 No Longer Active Erin Garsia APRN Active PREDNISONE 20 MG TAB 1 tablet twice daily for 2 days, then 1 tablet once daily for 2 days PREDNISONE 30668942752 No Longer Active Robbie Busby MD Active CEFDINIR 300 MG ORAL CAPS Take 1 cap po bid x 10 days CEFDINIR 46698932766 No Longer Active Robbie Busby MD Active AMLODIPINE BESYLATE 10 MG TABS 1 tablet by mouth daily AMLODIPINE BESYLATE 44809086238 Active Robbie Busby MD Active CARVEDILOL 25 MG TABS 1 & 1/2 TAB po BID CARVEDILOL 44717907731 Active Robbie Busby MD Active VITAMIN D3 57166 UNIT CAPS 2 CAPS PO WEEKLY CHOLECALCIFEROL 42997215330 Active Erin Garsia APRN Active NEXIUM 40 MG CPDR 1 cap by mouth daily ESOMEPRAZOLE MAGNESIUM 56001040039 Active Gali Sruthi Active PROTONIX 40 MG SOLR 1 po qday for acid reflux PANTOPRAZOLE SODIUM 07372793436 No Longer Active Gali Torresjuan carlos Active KEFLEX 500 MG CAP 1 po TID x 10 days CEPHALEXIN 90260756235 No Longer Active Robbie Busby MD Active FIORICET 50-300-40 MG ORAL CAPS take 1 tab po qday prn migraines. [id number] 00405147773 Active Robbie Busby MD Active TOPIRAMATE 50 MG ORAL TABS take 1 tab po BID for migraines. TOPIRAMATE 08289367531 Active Robbie Busby MD Active MECLIZINE HCL 25 MG TAB one 4 times a day as needed for dizziness MECLIZINE HCL 33133601514 Active Robbie Busby MD Active TEMAZEPAM 15 MG ORAL CAPS 1 TAB PO Q HS TEMAZEPAM 52887884540 Active Robbie Busby MD Active ALPRAZOLAM 2 MG ORAL TABS 1 TAB PO BID ALPRAZOLAM 46953641950 Active Robbie Busby MD Active FENOFIBRATE 145 MG TABS Take one by mouth daily FENOFIBRATE 34880568363 No Longer Active Robbie Busby MD Active SPIRONOLACTONE 50 MG TABS 1 tablet by mouth twice a day SPIRONOLACTONE 11547094361 No Longer Active Robbie Busby MD Active HYDRALAZINE HCL 25 MG TABS 1 tablet by mouth tid for hypertension HYDRALAZINE HCL 91216214089 No Longer Active Robbie Busby MD Active VIIBRYD 40 MG TABS take 1 tab po qday for depression. VILAZODONE HCL 81869001515 No Longer Active Robbie Busby MD Active TERBINAFINE HCL 250 MG TABS 1 tab po qday for foot infection 2014 TERBINAFINE HCL 64227130153 No Longer Active Robbie Busby MD Active GABAPENTIN 300 MG CAPS 1 po q hs for nerve pain GABAPENTIN 38626310489 Active Robbie Busby MD Active FLONASE 50 MCG/ACT SUSP 1 spray each nostril twice daily for allergies and runny nose FLUTICASONE PROPIONATE 82586690690 Active Robbie Busby MD Active CHERATUSSIN AC 100-10 MG/5ML ORAL SOLN 7.5 mL PO q 4-6 hrs PRN cough GUAIFENESIN-CODEINE 76454806912 No Longer Active Robbie Busby MD Active AZITHROMYCIN 250 MG ORAL TABS 2 tablets PO today---then, 1 tablet PO daily x 4 more days (and 1 optional refill) AZITHROMYCIN 61019134800 No Longer Active Robbie Busby MD Active CLONIDINE HCL 0.2 MG ORAL TABS 1 TAB BY MOUTH EVERY 8 HOURS CLONIDINE HCL 45706909490 Active Robbie Busby MD Active NORVASC 10 MG TAB 1 tablet by mouth daily AMLODIPINE BESYLATE 56961175297 No Longer Active Alex ALVAREZ Active IMDUR 60 MG TAB CR take 1 tab po qday for blood pressure ISOSORBIDE MONONITRATE Active Robbie Busby MD Active ISOSORBIDE DINITRATE 30 MG TABS Take one by mouth daily ISOSORBIDE DINITRATE 81427729877 No Longer Active Robbie Busby MD Active VIIBRYD 40 MG TABS 1 TA B PO DAILY VILAZODONE HCL 38760114685 Active Robbie Busby MD Active LORATADINE 10 MG TABS 1 tablet by mouth daily for congestion and allergies. LORATADINE 44888007487 Active Robbie Busby MD Active ZITHROMAX 250 MG TAB 2 po today, then 1 po q days 2-5 AZITHROMYCIN 60181797840 No Longer Active Robbie Busby MD Active [id number] 0.3 MG/24HR PTWK apply 2 patches q week for HTN CLONIDINE HCL 81518568966 Active Robbie Busby MD Active NITROSTAT 0.4 MG SUBL PRN NITROGLYCERIN 95745307749 Active Robbie Busby MD Active DOXAZOSIN MESYLATE 4 MG TABS Take one by mouth daily DOXAZOSIN MESYLATE 92108392968 Active Robbie Busby MD Active TOPROL XL 200 MG [id number] Take one by mouth daily METOPROLOL SUCCINATE 51726742586 Active Robbie Busby MD Active VENLAFAXINE HCL ER 150 MG [id number] Take one by mouth daily VENLAFAXINE HCL 65834683467 Active Robbie Busby MD Active LIPITOR 40 MG TABS Take one by mouth daily ATORVASTATIN CALCIUM 66765160616 Active Robbie Busby MD Active ISOSORBIDE DINITRATE 30 MG TABS Take one by mouth daily ISOSORBIDE DINITRATE 30 MG TABS 029387 ISOSORBIDE DINITRATE Inactive NORVASC 10 MG TAB 1 tablet by mouth daily NORVASC 10 MG TAB 147131 AMLODIPINE BESYLATE Inactive AZITHROMYCIN 250 MG ORAL TABS 2 tablets PO today---then, 1 tablet PO daily x 4 more days (and 1 optional refill) AZITHROMYCIN 250 MG ORAL TABS 8295183 AZITHROMYCIN Inactive CHERATUSSIN AC 100-10 MG/5ML ORAL SOLN 7.5 mL PO q 4-6 hrs PRN cough CHERATUSSIN AC 100-10 MG/5ML ORAL SOLN 925793 GUAIFENESIN- CODEINE Inactive VIIBRYD 40 MG TABS take 1 tab po qday for depression. VIIBRYD 40 MG TABS VILAZODONE HCL Inactive HYDRALAZINE HCL 25 MG TABS 1 tablet by mouth tid for hypertension HYDRALAZINE HCL 25 MG TABS 821515 HYDRALAZINE HCL Inactive SPIRONOLACTONE 50 MG TABS 1 tablet by mouth twice a day SPIRONOLACTONE 50 MG TABS 777198 SPIRONOLACTONE Inactive FENOFIBRATE 145 MG TABS Take one by mouth daily FENOFIBRATE 145 MG TABS 285981 FENOFIBRATE Inactive PROTONIX 40 MG SOLR 1 po qday for acid reflux PROTONIX 40 MG SOLR 438366 PANTOPRAZOLE SODIUM Inactive CEFDINIR 300 MG ORAL CAPS Take 1 cap po bid x 10 days CEFDINIR 300 MG ORAL CAPS 741031 CEFDINIR Inactive PREDNISONE 20 MG TAB 1 tablet twice daily for 2 days, then 1 tablet once daily for 2 days PREDNISONE 20 MG TAB 233173 PREDNISONE Inactive NYSTATIN 674480 UNIT/ML M/T SUSP 5mL po QID x 10 days NYSTATIN 206319 UNIT/ML M/T SUSP 647784 NYSTATIN Inactive BETADINE 10 % EXT SOLN 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 BETADINE 10 % EXT SOLN 4760828 POVIDONE-IODINE Inactive TRILEPTAL 150 MG ORAL TABS 1 TAB PO Q HS TRILEPTAL 150 MG ORAL TABS 127743 OXCARBAZEPINE Inactive LAMISIL 125 MG ORAL PACK 1 TAB PO DAILY LAMISIL 125 MG ORAL PACK TERBINAFINE HCL Inactive HYDROCHLOROTHIAZIDE TABS Take one by mouth daily HYDROCHLOROTHIAZIDE TABS HYDROCHLOROTHIAZIDE TABS Inactive HYDROCODONE-ACETAMINOPHEN 5-325 MG TABS 1 tab by mouth BID prn back pain 2013 HYDROCODONE-ACETAMINOPHEN 5-325 MG TABS 753911 HYDROCODONE -ACETAMINOPHEN Inactive HYDRALAZINE HCL 50 MG ORAL TABS TWO BY MOUTH THREE TIMES DAILY HYDRALAZINE HCL 50 MG ORAL TABS 784023 HYDRALAZINE HCL Inactive ZITHROMAX 250 MG TAB 2 po today, then 1 po q days 2-5 ZITHROMAX 250 MG TAB 4757464 AZITHROMYCIN Inactive TERBINAFINE HCL 250 MG TABS 1 tab po qday for foot infection 2014 TERBINAFINE HCL 250 MG TABS 614306 TERBINAFINE HCL Inactive KEFLEX 500 MG CAP 1 po TID x 10 days KEFLEX 500 MG CAP 364638 CEPHALEXIN Inactive BACTRIM DS 800-160 MG TAB 1 tab by mouth twice daily BACTRIM DS 800-160 MG TAB 451487 TRIMETHOPRIM-SULFAMETHOXAZOLE Inactive Advance Directives Directive Description Start [...] Acid - Chemistry sodium, serum 139 mmol/L 266-754 4903/04/22 carbon dioxide, venous blood 29.4 mmol/L 21.0-32.0 [...] to Follow Negative Lab Report: VITAMIN D, 25-HYDROXY/50155 - Chemistry vitamin D 25-hydroxy, serum 23 ng/mL 30-100 Encounters Code Encounter Date Provider Facility [facility]-[id number] Level 3 Est. Patient 09:16:37 CDT Robbie Busby MD [facility]-61213 Level 3 Est. Patient 19:38:43 CDT Robbie Busby MD [facility]-39941 Level 3 Est. Patient 11:53:38 CDT Robbie Busby MD [facility]-98138 Level 4 Est. Patient 12:52:22 CDT Rober Rodríguez APRN [facility] CPT-15077 Level 4 Est. Patient 22:55:17 CDT Robbie Busby MD [facility] CPT-35156 Level 3 Est. Patient 12:38:24 CDT Desmond Diaz DO [facility] CPT-92000 Level 4 Est. Patient 11:25:03 [employer] Robbie Busby MD [facility] CPT-32571 Level 4 Est. Patient 14:50:10 CDT Robbie Busby MD [facility] CPT-37138 Level 4 Est. Patient 23:30:43 CDT Robibe Busby MD [facility] CPT-26513 Level 4 Est. Patient 10:30:43 CDT Robbie Busby MD [facility] CPT-78136 Level 3 Est. Patient 17:08:12 CDT Alex ALVAREZ [facility] CPT-26762 Level 4 Est. Patient 17:51:38 CDT Robbie Busby MD [facility] CPT-29097 Level 4 Est. Patient 14:00:21 CDT Robbie Busby MD [facility] CPT-65235 Level 4 Est. Patient 12:46:48 CDT Robbie Busby MD [facility] CPT-34189 Level 4 Est. Patient 13:34:33 CDT Robbie Busby MD [facility] CPT-63113 Level 4 Est. Patient 16:58:28 CDT Robbie Busby MD [facility] CPT-53736 Level 3 Est. Patient 19:36:53 CDT Alex ALVAREZ [facility] CPT-88834 Level 3 Est. Patient 12:58:15 CDT Robbie Busby MD [facility] Procedures Code Procedure Name Date Entry Date Standard Description CPT-09310 Wound Culture - LAB USE ONLY 14:00:21 CDT CPT-I/D I/D Abscess 09:16:37 CDT CPT-08803 Venipuncture Draw Fee 15:20:23 CDT CPT-23968 Microalbumin - LAB USE ONLY 16:02:19 CDT CPT-43407 CBC - LAB USE ONLY 16:02:19 CDT CPT-13657 Venipuncture Draw Fee 16:02:19 CDT CPT-G0438 Initial Annual Wellness Exam 08:10:28 CDT CPT-15411 Venipuncture Draw Fee 13:07:17 CDT CPT-G0008 Administration of Influenza Virus Vaccine 16:09:59 CDT CPT-42796 Fluzone Quadrivalent Intramuscular Suspension 0.5 ML 16: 09:59 CDT CPT-83978 Spec Collection and Handling Fee 15:05:50 CDT
--- OUTSIDE RECORDS SUMMARY | 2018-04-18 11:00 | XMS REPORT | Clinical Summary ---
Author Author Admin, AKUA Organization [facility] Address Unknown Phone Unavailable Allergies, Adverse Reactions, [...] Busby MD Dysthymic disorder Sinusitis 461.9 Active Robbei Busby MD Acute sinusitis, unspecified Low back [...] 1 tab by mouth twice daily TRIMETHOPRIM-SULFAMETHOXAZOLE 18615700558 No Longer Active Robbie Busby MD Active SPIRONOLACTONE 25 MG TAB 4 tablets by mouth daily SPIRONOLACTONE 20016546851 Active Robbie Busby MD Active HYDRALAZINE HCL 50 MG ORAL TABS TWO BY MOUTH THREE TIMES DAILY HYDRALAZINE HCL 06282453017 No Longer Active 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 BENEFITS ADMINISTRATOR Active HYDROCODONE-ACETAMINOPHEN 5-325 MG TABS 1 tab by mouth BID prn back pain 2013 HYDROCODONE-ACETAMINOPHEN 29523857032 No Longer Active 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 BENEFITS ADMINISTRATOR Active HYDROCHLOROTHIAZIDE TABS Take one by mouth daily HYDROCHLOROTHIAZIDE TABS 11792410366 No Longer Active 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 BENEFITS ADMINISTRATOR Active LAMISIL 125 MG ORAL PACK 1 TAB PO DAILY TERBINAFINE HCL 50981331514 No Longer Active 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 BENEFITS ADMINISTRATOR Active TRILEPTAL 150 MG ORAL TABS 1 TAB PO Q HS OXCARBAZEPINE 15001708366 No Longer Active 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 BENEFITS ADMINISTRATOR Active BETADINE 10 % EXT SOLN 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 POVIDONE-IODINE 23874764246 No Longer Active 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 BENEFITS ADMINISTRATOR Active NYSTATIN 992794 UNIT/ML M/T SUSP 5mL po QID x 10 days NYSTATIN 58723517445 No Longer Active Erin Garsia APRN Active PREDNISONE 20 MG TAB 1 tablet twice daily for 2 days, then 1 tablet once daily for 2 days PREDNISONE 43786964252 No Longer Active Robbie Busby MD Active CEFDINIR 300 MG ORAL CAPS Take 1 cap po bid x 10 days CEFDINIR 33062833379 No Longer Active Robbie Busby MD Active AMLODIPINE BESYLATE 10 MG TABS 1 tablet by mouth daily AMLODIPINE BESYLATE 73586493195 Active Robbie Busby MD Active CARVEDILOL 25 MG TABS 1 & 1/2 TAB po BID CARVEDILOL 17167024397 Active Erin Garsia APRN Active VITAMIN D3 27764 UNIT CAPS 2 CAPS PO WEEKLY CHOLECALCIFEROL 72462569117 Active Erin Garsia APRN Active NEXIUM 40 MG CPDR 1 cap by mouth daily ESOMEPRAZOLE MAGNESIUM 81804740936 Active Gali Negro Active PROTONIX 40 MG SOLR 1 po qday for acid reflux PANTOPRAZOLE SODIUM 14028926593 No Longer Active Gali Negro Active KEFLEX 500 MG CAP 1 po TID x 10 days CEPHALEXIN 80517486258 No Longer Active Robbie Busby MD Active FIORICET 50-300-40 MG ORAL CAPS take 1 tab po qday prn migraines. SXVQNESDUM-VMRY-LNVLIJVM 53159887402 Active Robbie Busby MD Active TOPIRAMATE 50 MG ORAL TABS take 1 tab po BID for migraines. TOPIRAMATE 84725014849 Active Robbie Busby MD Active MECLIZINE HCL 25 MG TAB one 4 times a day as needed for dizziness MECLIZINE HCL 90304229625 Active Robbie Busby MD Active TEMAZEPAM 15 MG ORAL CAPS 1 TAB PO Q HS TEMAZEPAM 12457934624 Active Robbie Busby MD Active ALPRAZOLAM 2 MG ORAL TABS 1 TAB PO BID ALPRAZOLAM 09366540829 Active Robbie Busby MD Active FENOFIBRATE 145 MG TABS Take one by mouth daily FENOFIBRATE 74106200691 No Longer Active Robbie Busby MD Active SPIRONOLACTONE 50 MG TABS 1 tablet by mouth twice a day SPIRONOLACTONE 22344288007 No Longer Active Robbie Busby MD Active HYDRALAZINE HCL 25 MG TABS 1 tablet by mouth tid for hypertension HYDRALAZINE HCL 80690861760 No Longer Active Robbie Busby MD Active VIIBRYD 40 MG TABS take 1 tab po qday for depression. VILAZODONE HCL 93269423431 No Longer Active Robbie Busby MD Active TERBINAFINE HCL 250 MG TABS 1 tab po qday for foot infection 2014 TERBINAFINE HCL 21277309160 No Longer Active Robbie Busby MD Active GABAPENTIN 300 MG CAPS 1 po q hs for nerve pain GABAPENTIN 54640000507 Active Robbie Busby MD Active FLONASE 50 MCG/ACT SUSP 1 spray each nostril twice daily for allergies and runny nose FLUTICASONE PROPIONATE 58659179436 Active Robbie Busby MD Active CHERATUSSIN AC 100-10 MG/5ML ORAL SOLN 7.5 mL PO q 4-6 hrs PRN cough GUAIFENESIN-CODEINE 54009198801 No Longer Active Robbie Busby MD Active AZITHROMYCIN 250 MG ORAL TABS 2 tablets PO today---then, 1 tablet PO daily x 4 more days (and 1 optional refill) AZITHROMYCIN 89107594740 No Longer Active Robbie Busby MD Active CLONIDINE HCL 0.2 MG ORAL TABS 1 TAB BY MOUTH EVERY 8 HOURS CLONIDINE HCL 09290488874 Active Erin Garsia APRN Active NORVASC 10 MG TAB 1 tablet by mouth daily AMLODIPINE BESYLATE 13523589793 No Longer Active Alex ALVAREZ Active IMDUR 60 MG TAB CR take 1 tab po qday for blood pressure ISOSORBIDE MONONITRATE Active Robbie Busby MD Active ISOSORBIDE DINITRATE 30 MG TABS Take one by mouth daily ISOSORBIDE DINITRATE 78656648783 No Longer Active Robbie Busby MD Active VIIBRYD 40 MG TABS 1 TA B PO DAILY VILAZODONE HCL 08787369596 Active Robbie Busby MD Active LORATADINE 10 MG TABS 1 tablet by mouth daily for congestion and allergies. LORATADINE 20585408008 Active Robbie Busby MD Active ZITHROMAX 250 MG TAB 2 po today, then 1 po q days 2-5 AZITHROMYCIN 47660751560 No Longer Active Robbie Busby MD Active [id number]-6 0.3 MG/24HR PTWK apply 2 patches q week for HTN CLONIDINE HCL 70242033596 Active Robbie Busby MD Active NITROSTAT 0.4 MG SUBL PRN NITROGLYCERIN 23490202618 Active Robbie Busby MD Active DOXAZOSIN MESYLATE 4 MG TABS Take one by mouth daily DOXAZOSIN MESYLATE 23617251176 Active Erin Garsia APRN Active TOPROL XL 200 MG [id number] Take one by mouth daily METOPROLOL SUCCINATE 01362834255 Active Robbie Busby MD Active VENLAFAXINE HCL ER 150 MG [id number] Take one by mouth daily VENLAFAXINE HCL 33391990069 Active Robbie Busby MD Active LIPITOR 40 MG TABS Take one by mouth daily ATORVASTATIN CALCIUM 11985772850 Active Robbie Busby MD Active ISOSORBIDE DINITRATE 30 MG TABS Take one by mouth daily ISOSORBIDE DINITRATE 30 MG TABS 147733 ISOSORBIDE DINITRATE Inactive NORVASC 10 MG TAB 1 tablet by mouth daily NORVASC 10 MG TAB 437452 AMLODIPINE BESYLATE Inactive AZITHROMYCIN 250 MG ORAL TABS 2 tablets PO today---then, 1 tablet PO daily x 4 more days (and 1 optional refill) AZITHROMYCIN 250 MG ORAL TABS 3489934 AZITHROMYCIN Inactive CHERATUSSIN AC 100-10 MG/5ML ORAL SOLN 7.5 mL PO q 4-6 hrs PRN cough CHERATUSSIN AC 100-10 MG/5ML ORAL SOLN 825528 GUAIFENESIN- CODEINE Inactive VIIBRYD 40 MG TABS take 1 tab po qday for depression. VIIBRYD 40 MG TABS VILAZODONE HCL Inactive HYDRALAZINE HCL 25 MG TABS 1 tablet by mouth tid for hypertension HYDRALAZINE HCL 25 MG TABS 647974 HYDRALAZINE HCL Inactive SPIRONOLACTONE 50 MG TABS 1 tablet by mouth twice a day SPIRONOLACTONE 50 MG TABS 272508 SPIRONOLACTONE Inactive FENOFIBRATE 145 MG TABS Take one by mouth daily FENOFIBRATE 145 MG TABS 997588 FENOFIBRATE Inactive PROTONIX 40 MG SOLR 1 po qday for acid reflux PROTONIX 40 MG SOLR 580617 PANTOPRAZOLE SODIUM Inactive CEFDINIR 300 MG ORAL CAPS Take 1 cap po bid x 10 days CEFDINIR 300 MG ORAL CAPS 191068 CEFDINIR Inactive PREDNISONE 20 MG TAB 1 tablet twice daily for 2 days, then 1 tablet once daily for 2 days PREDNISONE 20 MG TAB 927230 PREDNISONE Inactive NYSTATIN 191852 UNIT/ML M/T SUSP 5mL po QID x 10 days NYSTATIN 507033 UNIT/ML M/T SUSP 938953 NYSTATIN Inactive BETADINE 10 % EXT SOLN 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 BETADINE 10 % EXT SOLN 5358067 POVIDONE-IODINE Inactive TRILEPTAL 150 MG ORAL TABS 1 TAB PO Q HS TRILEPTAL 150 MG ORAL TABS 401388 OXCARBAZEPINE Inactive LAMISIL 125 MG ORAL PACK 1 TAB PO DAILY LAMISIL 125 MG ORAL PACK TERBINAFINE HCL Inactive HYDROCHLOROTHIAZIDE TABS Take one by mouth daily HYDROCHLOROTHIAZIDE TABS HYDROCHLOROTHIAZIDE TABS Inactive HYDROCODONE-ACETAMINOPHEN 5-325 MG TABS 1 tab by mouth BID prn back pain 2013 HYDROCODONE-ACETAMINOPHEN 5-325 MG TABS 843219 HYDROCODONE -ACETAMINOPHEN Inactive HYDRALAZINE HCL 50 MG ORAL TABS TWO BY MOUTH THREE TIMES DAILY HYDRALAZINE HCL 50 MG ORAL TABS 475217 HYDRALAZINE HCL Inactive ZITHROMAX 250 MG TAB 2 po today, then 1 po q days 2-5 ZITHROMAX 250 MG TAB 2641482 AZITHROMYCIN Inactive TERBINAFINE HCL 250 MG TABS 1 tab po qday for foot infection 2014 TERBINAFINE HCL 250 MG TABS 884690 TERBINAFINE HCL Inactive KEFLEX 500 MG CAP 1 po TID x 10 days KEFLEX 500 MG CAP 614414 CEPHALEXIN Inactive BACTRIM DS 800-160 MG TAB 1 tab by mouth twice daily BACTRIM DS 800-160 MG TAB 793889 TRIMETHOPRIM-SULFAMETHOXAZOLE Inactive Advance Directives Directive Description Start [...] Acid - Chemistry sodium, serum 139 mmol/L 564-226 5048/04/22 carbon dioxide, venous blood 29.4 mmol/L 21.0-32.0 [...] to Follow Negative Lab Report: VITAMIN D, 25-HYDROXY/72077 - Chemistry vitamin D 25-hydroxy, serum 23 ng/mL 30-100 Encounters Code Encounter Date Provider Facility CPT-71502 Level 3 Est. Patient 09:16:37 CDT Robbie Busby MD [facility]-91299 Level 3 Est. Patient 19:38:43 CDT Robbie Busby MD [facility]-60148 Level 3 Est. Patient 11:53:38 CDT Robbie Busby MD [facility]-78930 Level 4 Est. Patient 12:52:22 CDT Rober Rodríguez APRN [facility]-49854 Level 4 Est. Patient 22:55:17 CDT Robbie Busby MD [facility]-77936 Level 3 Est. Patient 12:38:24 CDT Desmond iDaz DO [facility] CPT-82087 Level 4 Est. 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 Patient 14:50:10 CDT Robbie Busby MD [facility] CPT-03917 Level 4 Est. Patient 23:30:43 CDT Robbie Busby MD [facility] CPT-49800 Level 4 Est. Patient 10:30:43 CDT Robbie Busby MD [facility] CPT-39212 Level 3 Est. Patient 17:08:12 CDT Alex ALVAREZ [facility] CPT-91902 Level 4 Est. Patient 17:51:38 CDT Robbie Busby MD [facility] CPT-41342 Level 4 Est. Patient 14:00:21 CDT Robbie Busby MD [facility]-88167 Level 4 Est. Patient 12:46:48 CDT Robbie Busby MD [facility] CPT-73716 Level 4 Est. Patient 13:34:33 CDT Robbie Busby MD [facility] CPT-51643 Level 4 Est. Patient 16:58:28 CDT Robbie Busby MD [facility] CPT-00871 Level 3 Est. Patient 19:36:53 CDT Alex ALVAREZ [facility] CPT-09604 Level 3 Est. Patient 12:58:15 CDT Robbie Busby MD [facility] Procedures Code Procedure Name Date Entry Date Standard Description CPT-20245 Wound Culture - LAB USE ONLY 14:00:21 CDT CPT-I/D I/D Abscess 09:16:37 CDT CPT-94745 Venipuncture Draw Fee 15:20:23 CDT CPT-58166 Microalbumin - LAB USE ONLY 16:02:19 CDT CPT-80593 CBC - LAB USE ONLY 16:02:19 CDT CPT-56395 Venipuncture Draw Fee 16:02:19 CDT CPT-G0438 Initial Annual Wellness Exam 08:10:28 CDT CPT-12747 Venipuncture Draw Fee 13:07:17 CDT CPT-G0008 Administration of Influenza Virus Vaccine 16:09:59 CDT CPT-56145 Fluzone Quadrivalent Intramuscular Suspension 0.5 ML 16: 09:59 CDT CPT-48140 Spec Collection and Handling Fee 15:05:50 CDT
--- OUTSIDE RECORDS SUMMARY | 2018-04-18 11:01 | XMS REPORT | Clinical Summary ---
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 Desmond Diaz DO Other malignant secondary hypertension Tachycardia 785.0 Active Rober Rodríguez SITE PROMOTION AGENT Tachycardia, unspecified Insect bite, infected 919.5 Resolved Desmond Diaz DO Insect bite, nonvenomous, of other, multiple, and unspecified sites, infected Abscess, skin 682.9 Resolved Desmond Diaz DO Cellulitis and abscess of unspecified sites URI 465.9 Resolved Desmond Diaz DO Acute upper respiratory infections of unspecified site Hypertension 401.9 Active Rober Rodríguez SITE PROMOTION AGENT Unspecified essential hypertension Sinusitis - acute 461.9 [...] Hypogonadism, low testosterone 257.2 Active Erin Mai SITE PROMOTION AGENT Other testicular hypofunction Low back pain, chronic [...] 37.0-37.9, adult Sinusitis ICD-461.9 Inactive Emily Atwood [employer] 2017 Low back pain, acute ICD-724.2 Inactive Emily Atwood [employer]ICER Low back pain, chronic ICD-724.2 Inactive Emily Atwood [employer]ER Bronchitis, acute ICD-466.0 Inactive Emily Atwood [employer]ER Onychomycosis, toenails ICD-110.1 Inactive Emily Atwood [employer]ICER Dizziness ICD-780.4 Inactive Emily Atwood [employer]IC[employer] 2017 Folliculitis ICD-704.8 Inactive Emily Atwood [employer] Pharyngitis-Acute ICD-462 Inactive Emily Atwood [employer]ICER Fatigue ICD-780.79 Inactive Emily Atwood [employer]ICER 09/20 Hypertension, secondary, malignant ICD-405.09 Inactive Emily Atwood [employer]ER Insect bite, infected ICD-919.5 Inactive Emily Atwood [employer]ICER Abscess, skin ICD-682.9 Inactive Emily Atwood [employer] OFFICER URI ICD-465.9 Inactive Emily Atwood [employer] FIN[employer]ICER Sinusitis - acute ICD-461.9 Inactive Emily Atwood [employer]ICER Acute confusion ICD-293.0 Inactive Emily Atwood [employer]ICER Headache ICD-784.0 Inactive Emily Rai CISSE 09/20 Back pain ICD-724.5 Inactive Emily Atwood [employer]ICER 2017 Rib pain, right sided ICD-786.50 Inactive [...] blood pressure and rapid pulse METOPROLOL SUCCINATE 40458697199 Active Robbie Busby MD Active [id number]-[id number]-9 0.3 MG/24HR TRANSDERMAL PATCH WEEKLY apply 2 patches q week for HTN CLONIDINE HCL 09917485442 No Longer Active Robbie Busby MD Active IMDUR 60 MG ORAL TABLET EXTENDED RELEASE 24 HOUR take 1 tab po qday for blood pressure ISOSORBIDE MONONITRATE 21774597020 No Longer Active Robbie Busby MD Active TEMAZEPAM 15 MG ORAL CAPSULE 1 TAB PO Q HS TEMAZEPAM 83783425492 No Longer Active Robbie Busby MD Active TOPIRAMATE 50 MG ORAL TABLET 1 po BID for migraines TOPIRAMATE 03866504946 No Longer Active Robbie Busby MD Active CYCLOBENZAPRINE HCL 10 MG ORAL TABLET 1 tablet by mouth three times daily as needed for muscle spasm/pain CYCLOBENZAPRINE HCL 78109584950 No Longer Active Robbie Busby MD Active TOPROL XL 200 MG ORAL TABLET EXTENDED RELEASE 24 HOUR Take one by mouth daily METOPROLOL SUCCINATE 28470561133 No Longer Active Robbie Busby MD Active METFORMIN HCL 500 MG ORAL TABLET 1 tablet by mouth daily for diabetes type 2 METFORMIN HCL 72081000050 Active Robbie Busby MD Active SINGULAIR 10 MG ORAL TABLET 1 po qday for allergies. MONTELUKAST SODIUM 35060378164 No Longer Active Robbie Busby MD Active PREDNISONE 20 MG ORAL TABLET two tabs by mouth today, then one tab by mouth days two and three PREDNISONE 07832652786 No Longer Active Robbie Busby MD Active AZITHROMYCIN 250 MG ORAL TABLET 2 po qd x 1 day, then 1 po qd x 4 days 09/20 AZITHROMYCIN 06923216830 No Longer Active Desmond Diaz DO Active TOPIRAMATE 50 MG ORAL TABLET take 1 tab po BID for migraines. TOPIRAMATE 80919144311 No Longer Active Desmond Diaz DO Active CYCLOBENZAPRINE HCL 10 MG ORAL TABLET 1 po TID PRN muscle spasm/pain for 10 days CYCLOBENZAPRINE HCL 06906964938 No Longer Active Desmond Diaz DO Active GUAIFENESIN ER 600 MG ORAL TABLET EXTENDED RELEASE 12 HOUR 1 tab po q am 2016 GUAIFENESIN 61431518201 No Longer Active Robbie Busby MD Active DIVALPROEX SODIUM ER 500 MG ORAL TABLET EXTENDED RELEASE 24 HOUR Once daily DIVALPROEX SODIUM 21703807034 Active Robbie Busby MD Active DEPO-TESTOSTERONE 200 MG/ML INTRAMUSCULAR SOLUTION 1 IM Injections every 2 weeks for low testosterone TESTOSTERONE CYPIONATE 97501767872 Active Zulema Blank LPN Active FLUTICASONE PROPIONATE 50 MCG/ACT NASAL SUSPENSION 2 sprays per nostril bid for 1 week, then 1 spray bid FLUTICASONE PROPIONATE 39396281981 Active Rober Rodríguez APRN Active HYDRALAZINE HCL 25 MG ORAL TABLET Take 1 tab BID. HYDRALAZINE HCL 49182850902 Active Rober Rodríguez APRN Active VITAMIN D3 54573 UNIT ORAL TABLET 2 po weekly CHOLECALCIFEROL 65351402658 Active Robbie Busby MD Active OXYCODONE HCL ER 10 MG ORAL TABLET ER 12 HOUR ABUSE-DETERRENT 1 tab po 3 times qd. OXYCODONE HCL 99981106699 Active Robbie Busby MD Active NITROSTAT 0.4 MG SUBLINGUAL TABLET SUBLINGUAL PRN NITROGLYCERIN 75484632956 No Longer Active Robbie Busby MD Active LORATADINE 10 MG ORAL TABLET 1 tablet by mouth daily for congestion and allergies. LORATADINE 22795532398 No Longer Active Robbie Busby MD Active FLONASE 50 MCG/ACT NASAL SUSPENSION 1 spray each nostril twice daily for allergies and runny nose FLUTICASONE PROPIONATE 75554118651 No Longer Active Robbie Busby MD Active FIORICET 50-300-40 MG ORAL CAPSULE take 1 tab po qday prn migraines. [id number] 71364612221 No Longer Active Robbie Busby MD Active VITAMIN D3 48391 UNIT ORAL CAPSULE 2 CAPS PO WEEKLY CHOLECALCIFEROL 74700803285 No Longer Active Robbie Busby MD Active CYCLOBENZAPRINE HCL 10 MG ORAL TABLET 1 tablet by mouth three times daily as needed for muscle spasm/pain for 10 days CYCLOBENZAPRINE HCL 04918116458 No Longer Active Robbie Busby MD Active PREDNISONE 20 MG ORAL TABLET take 3 tabs daily for 3 days, 2 tabs daily for 3 days, 1 tab daily for 3 days, 1/2 tab daily for 4 days PREDNISONE 90987388390 No Longer Active Erin Mai APRN Active CLONIDINE HCL 0.2 MG ORAL TABLET 1 TAB BY MOUTH EVERY 8 HOURS CLONIDINE HCL 00476775536 No Longer Active Erin Mai APRN Active MECLIZINE HCL 25 MG ORAL TABLET one 4 times a day as needed for dizziness MECLIZINE HCL 07222869748 No Longer Active Erin Arell SITE PROMOTION AGENT Active SPIRONOLACTONE 25 MG ORAL TABLET 4 tablets by mouth daily SPIRONOLACTONE 32897080629 No Longer Active Erin Arell SITE PROMOTION AGENT Active LEVAQUIN 500 MG ORAL TABLET 1 tablet by mouth daily for 7 days LEVOFLOXACIN 16978138541 No Longer Active Erin Arell SITE PROMOTION AGENT Active BACTRIM DS 800-160 MG ORAL TABLET 1 tab by mouth twice daily 2015 TRIMETHOPRIM-SULFAMETHOXAZOLE 33543879407 No Longer Active Robbie Busby MD Active HYDRALAZINE HCL 50 MG ORAL TABLET TWO BY MOUTH THREE TIMES DAILY HYDRALAZINE HCL 86705822830 No Longer Active Agnieszkaina Zulemal SITE PROMOTION AGENT Active HYDROCODONE-ACETAMINOPHEN 5-325 MG ORAL TABLET 1 tab by mouth BID prn back pain HYDROCODONE-ACETAMINOPHEN 67909340188 No Longer Active 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 SITE PROMOTION AGENT Active HYDROCHLOROTHIAZIDE TABLET Take one by mouth daily HYDROCHLOROTHIAZIDE TABS 22632288645 No Longer Active 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 SITE PROMOTION AGENT Active LAMISIL 125 MG ORAL PACKET 1 TAB PO DAILY TERBINAFINE HCL 87224636617 No Longer Active 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 SITE PROMOTION AGENT Active TRILEPTAL 150 MG ORAL TABLET 1 TAB PO Q HS OXCARBAZEPINE 70777193118 No Longer Active 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 SITE PROMOTION AGENT Active BETADINE 10 % EXTERNAL SOLUTION 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 07/29 POVIDONE-IODINE 51160578840 No Longer Active 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 SITE PROMOTION AGENT Active NYSTATIN 917858 UNIT/ML MOUTH/THROAT SUSPENSION 5mL po QID x 10 days NYSTATIN 87172622063 No Longer Active Erin Arell SITE PROMOTION AGENT Active PREDNISONE 20 MG ORAL TABLET 1 tablet twice daily for 2 days, then 1 tablet once daily for 2 days PREDNISONE 56844742634 No Longer Active Robbie Busby MD Active CEFDINIR 300 MG ORAL CAPSULE Take 1 cap po bid x 10 days CEFDINIR 77189887207 No Longer Active Robbie Busby MD Active AMLODIPINE BESYLATE 10 MG ORAL TABLET 1 tablet by mouth daily AMLODIPINE BESYLATE 53920463749 Active Robbie Busby MD Active CARVEDILOL 25 MG ORAL TABLET 1 & 1/2 TAB po BID CARVEDILOL 65406961851 Active Robbie Busby MD Active NEXIUM 40 MG ORAL CAPSULE DELAYED RELEASE 1 cap by mouth daily ESOMEPRAZOLE MAGNESIUM 97908040211 Active Robbie Busby MD Active PROTONIX 40 MG INTRAVENOUS SOLUTION RECONSTITUTED 1 po qday for acid reflux PANTOPRAZOLE SODIUM 19931735764 No Longer Active Galileonila Negro Active KEFLEX 500 MG ORAL CAPSULE 1 po TID x 10 days CEPHALEXIN 94927497657 No Longer Active Robbie Busby MD Active ALPRAZOLAM 2 MG ORAL TABLET 1 TAB PO BID ALPRAZOLAM 80123767842 Active Robbie Busby MD Active FENOFIBRATE 145 MG ORAL TABLET Take one by mouth daily FENOFIBRATE 82136434780 No Longer Active Robbie Busby MD Active SPIRONOLACTONE 50 MG ORAL TABLET 1 tablet by mouth twice a day SPIRONOLACTONE 98628713610 No Longer Active Robbie Busby MD Active HYDRALAZINE HCL 25 MG ORAL TABLET 1 tablet by mouth tid for hypertension 2013 HYDRALAZINE HCL 66800975647 No Longer Active Robbie Busby MD Active VIIBRYD 40 MG ORAL TABLET take 1 tab po qday for depression. 2014 VILAZODONE HCL 23967120544 No Longer Active Robbie Busby MD Active TERBINAFINE HCL 250 MG ORAL TABLET 1 tab po qday for foot infection TERBINAFINE HCL 97266378803 No Longer Active Robbie Busby MD Active GABAPENTIN 300 MG ORAL CAPSULE 1 po q hs for nerve pain GABAPENTIN 93189392504 Active Robbie Busby MD Active CHERATUSSIN AC 100-10 MG/5ML ORAL SOLUTION 7.5 mL PO q 4-6 hrs PRN cough 2014 GUAIFENESIN-CODEINE 20773657642 No Longer Active Robbie Busby MD Active AZITHROMYCIN 250 MG ORAL TABLET 2 tablets PO today---then, 1 tablet PO daily x 4 more days (and 1 optional refill) AZITHROMYCIN 24755282928 No Longer Active Robbie Busby MD Active NORVASC 10 MG ORAL TABLET 1 tablet by mouth daily AMLODIPINE BESYLATE 51127520690 No Longer Active Alex ALVAREZ Active ISOSORBIDE DINITRATE 30 MG ORAL TABLET Take one by mouth daily ISOSORBIDE DINITRATE 16662200954 No Longer Active Robbie Busby MD Active VIIBRYD 40 MG ORAL TABLET 1 TA B PO DAILY VILAZODONE HCL 67109455829 Active Robbie Busby MD Active ZITHROMAX 250 MG ORAL TABLET 2 po today, then 1 po q days 2-5 AZITHROMYCIN 71452286634 No Longer Active Robbie Busby MD Active DOXAZOSIN MESYLATE 4 MG ORAL TABLET Take one by mouth daily DOXAZOSIN MESYLATE 57702658709 Active Robbie Busby MD Active VENLAFAXINE HCL ER 150 MG ORAL TABLET EXTENDED RELEASE 24 HOUR Take one by mouth daily VENLAFAXINE HCL 59186921301 Active Robbie Busby MD Active LIPITOR 40 MG ORAL TABLET Take one by mouth daily ATORVASTATIN CALCIUM 14674567992 Active Robbie Busby MD Active ISOSORBIDE DINITRATE 30 MG ORAL TABLET Take one by mouth daily ISOSORBIDE DINITRATE 30 MG ORAL TABLET 841033 ISOSORBIDE DINITRATE Inactive NORVASC 10 MG ORAL TABLET 1 tablet by mouth daily NORVASC 10 MG ORAL TABLET 689305 AMLODIPINE BESYLATE Inactive AZITHROMYCIN 250 MG ORAL TABLET 2 tablets PO today---then, 1 tablet PO daily x 4 more days (and 1 optional refill) AZITHROMYCIN 250 MG ORAL TABLET 592006 AZITHROMYCIN Inactive CHERATUSSIN AC 100-10 MG/5ML ORAL SOLUTION 7.5 mL PO q 4-6 hrs PRN cough 2014 CHERATUSSIN AC 100-10 MG/5ML ORAL SOLUTION 673832 GUAIFENESIN-CODEINE Inactive VIIBRYD 40 MG ORAL TABLET take 1 tab po qday for depression. 2014 VIIBRYD 40 MG ORAL TABLET VILAZODONE HCL Inactive HYDRALAZINE HCL 25 MG ORAL TABLET 1 tablet by mouth tid for hypertension 2013 HYDRALAZINE HCL 25 MG ORAL TABLET 560039 HYDRALAZINE HCL Inactive SPIRONOLACTONE 50 MG ORAL TABLET 1 tablet by mouth twice a day SPIRONOLACTONE 50 MG ORAL TABLET 662821 SPIRONOLACTONE Inactive FENOFIBRATE 145 MG ORAL TABLET Take one by mouth daily FENOFIBRATE 145 MG ORAL TABLET 467568 FENOFIBRATE Inactive PROTONIX 40 MG INTRAVENOUS SOLUTION RECONSTITUTED 1 po qday for acid reflux PROTONIX 40 MG INTRAVENOUS SOLUTION RECONSTITUTED 309359 PANTOPRAZOLE SODIUM Inactive CEFDINIR 300 MG ORAL CAPSULE Take 1 cap po bid x 10 days CEFDINIR 300 MG ORAL CAPSULE 228890 CEFDINIR Inactive PREDNISONE 20 MG ORAL TABLET 1 tablet twice daily for 2 days, then 1 tablet once daily for 2 days PREDNISONE 20 MG ORAL TABLET 274365 PREDNISONE Inactive NYSTATIN 368846 UNIT/ML MOUTH/THROAT SUSPENSION 5mL po QID x 10 days NYSTATIN 889637 UNIT/ML MOUTH/THROAT SUSPENSION 682116 NYSTATIN Inactive BETADINE 10 % EXTERNAL SOLUTION 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 07/29 BETADINE 10 % EXTERNAL SOLUTION 7715861 POVIDONE-IODINE Inactive TRILEPTAL 150 MG ORAL TABLET 1 TAB PO Q HS TRILEPTAL 150 MG ORAL TABLET 092626 OXCARBAZEPINE Inactive LAMISIL 125 MG ORAL PACKET 1 TAB PO DAILY LAMISIL 125 MG ORAL PACKET TERBINAFINE HCL Inactive HYDROCHLOROTHIAZIDE TABLET Take one by mouth daily HYDROCHLOROTHIAZIDE TABLET HYDROCHLOROTHIAZIDE TABS Inactive HYDROCODONE-ACETAMINOPHEN 5-325 MG ORAL TABLET 1 tab by mouth BID prn back pain HYDROCODONE-ACETAMINOPHEN 5-325 MG ORAL TABLET 739576 HYDROCODONE-ACETAMINOPHEN Inactive HYDRALAZINE HCL 50 MG ORAL TABLET TWO BY MOUTH THREE TIMES DAILY HYDRALAZINE HCL 50 MG ORAL TABLET 817185 HYDRALAZINE HCL Inactive LEVAQUIN 500 MG ORAL TABLET 1 tablet by mouth daily for 7 days LEVAQUIN 500 MG ORAL TABLET 480648 LEVOFLOXACIN Inactive SPIRONOLACTONE 25 MG ORAL TABLET 4 tablets by mouth daily SPIRONOLACTONE 25 MG ORAL TABLET 935964 SPIRONOLACTONE Inactive MECLIZINE HCL 25 MG ORAL TABLET one 4 times a day as needed for dizziness MECLIZINE HCL 25 MG ORAL TABLET 094919 MECLIZINE HCL Inactive CLONIDINE HCL 0.2 MG ORAL TABLET 1 TAB BY MOUTH EVERY 8 HOURS CLONIDINE HCL 0.2 MG ORAL TABLET 125407 CLONIDINE HCL Inactive CYCLOBENZAPRINE HCL 10 MG ORAL TABLET 1 tablet by mouth three times daily as needed for muscle spasm/pain for 10 days CYCLOBENZAPRINE HCL 10 MG ORAL TABLET 102800 CYCLOBENZAPRINE HCL Inactive VITAMIN D3 97647 UNIT ORAL CAPSULE 2 CAPS PO WEEKLY VITAMIN D3 45438 UNIT ORAL CAPSULE CHOLECALCIFEROL Inactive FIORICET 50-300-40 MG ORAL CAPSULE take 1 tab po qday prn migraines. FIORICET 50-300-40 MG ORAL CAPSULE 611391 BUTALBITAL-APAP- CAFFEINE Inactive FLONASE 50 MCG/ACT NASAL SUSPENSION 1 spray each nostril twice daily for allergies and runny nose FLONASE 50 MCG/ACT NASAL SUSPENSION 1320688 FLUTICASONE PROPIONATE Inactive LORATADINE 10 MG ORAL TABLET 1 tablet by mouth daily for congestion and allergies. LORATADINE 10 MG ORAL TABLET 525592 LORATADINE Inactive NITROSTAT 0.4 MG SUBLINGUAL TABLET SUBLINGUAL PRN NITROSTAT 0.4 MG SUBLINGUAL TABLET SUBLINGUAL 307088 NITROGLYCERIN Inactive GUAIFENESIN ER 600 MG ORAL TABLET EXTENDED RELEASE 12 HOUR 1 tab po q am 2016 GUAIFENESIN ER 600 MG ORAL TABLET EXTENDED RELEASE 12 HOUR GUAIFENESIN Inactive CYCLOBENZAPRINE HCL 10 MG ORAL TABLET 1 po TID PRN muscle spasm/pain for 10 days CYCLOBENZAPRINE HCL 10 MG ORAL TABLET 109648 CYCLOBENZAPRINE HCL Inactive TOPIRAMATE 50 MG ORAL TABLET take 1 tab po BID for migraines. TOPIRAMATE 50 MG ORAL TABLET 095018 TOPIRAMATE Inactive PREDNISONE 20 MG ORAL TABLET two tabs by mouth today, then one tab by mouth days two and three PREDNISONE 20 MG ORAL TABLET 446527 PREDNISONE Inactive TOPROL XL 200 MG ORAL TABLET EXTENDED RELEASE 24 HOUR Take one by mouth daily TOPROL XL 200 MG ORAL TABLET EXTENDED RELEASE 24 HOUR METOPROLOL SUCCINATE Inactive CYCLOBENZAPRINE HCL 10 MG ORAL TABLET 1 tablet by mouth three times daily as needed for muscle spasm/pain CYCLOBENZAPRINE HCL 10 MG ORAL TABLET 754858 CYCLOBENZAPRINE HCL Inactive TOPIRAMATE 50 MG ORAL TABLET 1 po BID for migraines TOPIRAMATE 50 MG ORAL TABLET 243164 TOPIRAMATE Inactive TEMAZEPAM 15 MG ORAL CAPSULE 1 TAB PO Q HS TEMAZEPAM 15 MG ORAL CAPSULE 718499 TEMAZEPAM Inactive IMDUR 60 MG ORAL TABLET EXTENDED RELEASE 24 HOUR take 1 tab po qday for blood pressure IMDUR 60 MG ORAL TABLET EXTENDED RELEASE 24 HOUR ISOSORBIDE MONONITRATE Inactive [id number] 0.3 MG/24HR TRANSDERMAL PATCH WEEKLY apply 2 patches q week for HTN [id number] 0.3 MG/24HR TRANSDERMAL PATCH WEEKLY 986006 CLONIDINE HCL Inactive ZITHROMAX 250 MG ORAL TABLET 2 po today, then 1 po q days 2-5 ZITHROMAX 250 MG ORAL TABLET 390682 AZITHROMYCIN Inactive TERBINAFINE HCL 250 MG ORAL TABLET 1 tab po qday for foot infection TERBINAFINE HCL 250 MG ORAL TABLET 197576 TERBINAFINE HCL Inactive KEFLEX 500 MG ORAL CAPSULE 1 po TID x 10 days KEFLEX 500 MG ORAL CAPSULE 247570 CEPHALEXIN Inactive BACTRIM DS 800-160 MG ORAL TABLET 1 tab by mouth twice daily 2015 BACTRIM DS 800-160 MG ORAL TABLET 007767 TRIMETHOPRIM- SULFAMETHOXAZOLE Inactive PREDNISONE 20 MG ORAL TABLET take 3 tabs daily for 3 days, 2 tabs daily for 3 days, 1 tab daily for 3 days, 1/2 tab daily for 4 days PREDNISONE 20 MG ORAL TABLET 469669 PREDNISONE Inactive AZITHROMYCIN 250 MG ORAL TABLET 2 po qd x 1 day, then 1 po qd x 4 days 09/20 AZITHROMYCIN 250 MG ORAL TABLET 254672 AZITHROMYCIN Inactive SINGULAIR 10 MG ORAL TABLET 1 po qday for allergies. SINGULAIR 10 MG ORAL TABLET 295762 MONTELUKAST SODIUM Inactive Advance Directives Directive Description [...] AUTO - Chemistry sodium, serum 142 mmol/L 289-664 0681/07/17 carbon dioxide, venous blood 28.2 mmol/L 21.0-32.0 [...] % 11.0-15.0 platelet count 185 THOUSAND/UL 10*3/mm3 119-431 5652/04/14 mean platelet volume 10.9 fL 7.5-12.5 Lab Report: HGBA1C, Basic Metabolic Panel - Chemistry hemoglobin A1C, blood, as % of total hemoglobin 6.9 % 4.3-6.0 sodium, serum 139 mmol/L 169-412 8630/01/04 potassium, serum 3.9 mmol/L 3.5-5.2 chloride, serum 103 mmol/L 98-107 carbon dioxide, venous blood 26.9 mmol/L 21.0-32.0 blood glucose 106 mg/dL 65-110 calcium, serum 9.0 mg/dL 8.5-10.1 urea nitrogen, blood 20 mg/dL 7-18 creatinine, serum 1.46 mg/dL 0.60-1.30 Lab Report: LIPID PANEL, TSH/899, T4, FREE/866 - Chemistry cholesterol, serum 220 mg/dL 899-353 0871/04/14 HDL cholesterol, serum 30 mg/dL > OR=40 [...] 1.80 ng/mL 0.00-4.00 Lab Report: VITAMIN D, 25-HYDROXY/38693 - Chemistry vitamin D 25-hydroxy, serum 25 ng/mL 30-100 Office Visit: Confusion, dizziness after fall - Basic LDL target level 130 mg/dL Office Visit: Confusion, dizziness after fall - Chemistry HDL cholesterol, serum, target level 40 mg/dL triglyceride, target level 150 mg/dL cholesterol, target level 200 mg/dL Encounters Code Encounter Date Provider Facility CPT-71937 Level 4 Est. Patient 09:50:01 [employer]AR[employer] MACHINE OPERATOR Robbie Busby MD [facility] CPT-86416 Level 4 Est. Patient 09:42:08 [employer]AR[employer] MACHINE OPERATOR Robbie Busby MD [facility] CPT-19917 Level 4 Est. Patient 13:07:39 [employer]ARLAND MACHINE OPERATOR Robbie Busby MD [facility] CPT-51396 Level 4 Est. Patient 15:23:44 [employer]ARLAND MACHINE OPERATOR Desmond Diaz DO [facility] CPT-88424 Level 3 Est. Patient 15:40:49 CDT Robbie Busby MD [facility] CPT-59067 Level 4 Est. Patient 15:18:19 CDT Robbie Busby MD [facility] CPT-52068 Level 3 Est. Patient 09:00:37 CDT Rober Rodríguez [facility] CPT-36755 Level 3 Est. Patient 16:07:10 CDT Robbie Busby MD [facility] CPT-21497 Level 4 Est. Patient 11:56:16 CDT Erin Mai [facility] CPT-63705 Level 3 Est. Patient 17:48:02 CDT Robbie Busby MD [facility] CPT-95549 Level 4 Est. Patient 12:00:49 [employer]ARLAND MACHINE OPERATOR Rober Rodríguez [facility] CPT-67175 Level 3 Est. Patient 09:16:37 CDT Robbie Busby MD [facility] CPT-59862 Level 3 Est. Patient 19:38:43 CDT Robbie Busby MD [facility] CPT-97464 Level 3 Est. Patient 11:53:38 CDT Robbie Busby MD [facility] CPT-83542 Level 4 Est. Patient 12:52:22 CDT Rober Rodríguez [facility] CPT-73555 Level 4 Est. Patient 22:55:17 CDT Robbie Busby MD [facility] CPT-12146 Level 3 Est. Patient 12:38:24 CDT Desmond Diaz DO [facility] CPT-91660 Level 4 Est. Patient 11:25:03 [employer]ARLAND MACHINE OPERATOR Robbie Busby MD [facility] CPT-06402 Level 4 Est. Patient 14:50:10 CDT Robbie Busby MD [facility] CPT-30807 Level 4 Est. Patient 23:30:43 CDT Robbie Busby MD [facility] CPT-18519 Level 4 Est. Patient 10:30:43 CDT Robbie Busby MD [facility] CPT-85209 Level 3 Est. Patient 17:08:12 CDT Alex Shaw [facility] CPT-18814 Level 4 Est. Patient 17:51:38 CDT Robbie Busby MD [facility] CPT-91462 Level 4 Est. Patient 14:00:21 CDT Robbie Busby MD [facility] CPT-29397 Level 4 Est. Patient 12:46:48 CDT Robbie Busby MD [facility] CPT-29239 Level 4 Est. Patient 13:34:33 CDT Robbie Busby MD [facility] CPT-76293 Level 4 Est. Patient 16:58:28 CDT Robbie Busby MD [facility] CPT-06916 Level 3 Est. Patient 19:36:53 CDT Alex Shaw [facility] CPT-04469 Level 3 Est. Patient 12:58:15 CDT Robbie Busby MD [facility] Procedures Code Procedure Name Date Entry Date Standard Description CPT-J1071 Depo Testosterone 200mg 16:10:29 [employer]ARLAND MACHINE OPERATOR CPT-91444 Abx/Therapy Injection 16:10:29 [employer]ARLAND MACHINE OPERATOR CPT-J1071 Depo Testosterone 200mg 16:13:47 [employer]ARLAND MACHINE OPERATOR CPT-72246 Abx/Therapy Injection 16:13:46 GARLAND MACHINE OPERATOR CPT-J1071 Depo Testosterone 200mg 15:33:58 [facility] CPT-25222 Abx/Therapy Injection 15:33:58 [facility] CPT-J1071 Depo Testosterone 200mg 09:38:36 [facility] CPT-04824 Abx/Therapy Injection 09:38:36 [facility] CPT-J1071 Depo Testosterone 200mg 10:22:56 [facility] CPT-30057 Abx/Therapy Injection 10:22:56 [facility] CPT-J1071 Depo Testosterone 200mg 15:40:23 CDT CPT-68641 Abx/Therapy Injection 15:40:23 CDT CPT-J1071 Depo Testosterone 200mg 14:20:43 CDT CPT-10551 Abx/Therapy Injection 14:20:43 CDT CPT-J1071 Depo Testosterone 200mg 14:17:22 CDT CPT-41660 Abx/Therapy Injection 14:17:22 CDT CPT-J1071 Depo Testosterone 200mg 09:03:53 CDT CPT-67039 Abx/Therapy Injection 09:03:53 CDT CPT-G0439 [facility] Annual Wellness Exam 16:47:44 CDT CPT-J1071 Depo Testosterone 200mg 09:06:28 CDT CPT-16390 Abx/Therapy Injection 09:06:28 CDT CPT-J1071 Depo Testosterone 200mg 08:30:01 CDT CPT-36529 Abx/Therapy Injection 08:30:01 CDT CPT-J1071 Depo Testosterone 200mg 08:24:00 CDT CPT-04554 Abx/Therapy Injection 08:24:00 CDT CPT-55788 Venipuncture Draw Fee 14:39:06 CDT CPT-06143 Ribs unilateral 2V - XRAY USE ONLY 12:10:11 CDT CPT-15833 First Vx - Ix admin for Medicare patients 16:32:53 CDT CPT-39200 Boostrix Intramuscular Suspension 5-2.5-18.5 16:32:53 CDT CPT-03170 TB Skin Test 11:42:28 CDT CPT-15603 Tdap 7yrs or > 11:42:28 CDT CPT-J0696 Rocephin 1000 mg (Ceftriaxone) 17:43:43 [employer]ARLAND MACHINE OPERATOR CPT-J1040 Depo Medrol 80 mg (Methyl Prednisolone Acetate) 17:43: 43 [employer]ARLAND MACHINE OPERATOR CPT-J1100 Decadron 8mg (Dexamethasone) 17:43:42 [employer]ARLAND MACHINE OPERATOR CPT-65343 Abx/Therapy Injection 17:43:42 [employer]ARLAND MACHINE OPERATOR CPT-94223 Abx/Therapy Injection 17:43:42 [employer]ARLAND MACHINE OPERATOR CPT-J1040 Depo Medrol 80 mg (Methyl Prednisolone Acetate) 09:43: 34 [employer]ARLAND MACHINE OPERATOR CPT-J1100 Decadron 8mg (Dexamethasone) 09:43:34 GARLAND MACHINE OPERATOR CPT-J0696 Rocephin 1gm Inj Solr 09:43:34 GARLAND MACHINE OPERATOR CPT-04862 Wound Culture - LAB USE ONLY 14:00:21 CDT CPT-I/D I/D Abscess 09:16:37 CDT CPT-40118 Venipuncture Draw Fee 15:20:23 CDT CPT-17436 Microalbumin - LAB USE ONLY 16:02:19 CDT CPT-02484 CBC - LAB USE ONLY 16:02:19 CDT CPT-68468 Venipuncture Draw Fee 16:02:19 CDT CPT-G0438 Initial Annual Wellness Exam 08:10:28 CDT CPT-39648 Venipuncture Draw Fee 13:07:17 CDT CPT-G0008 Administration of Influenza Virus Vaccine 16:09:59 CDT CPT-92395 Fluzone Quadrivalent Intramuscular Suspension 0.5 ML 16: 09:59 CDT CPT-34253 Spec Collection and Handling Fee 15:05:50 CDT
--- OUTSIDE RECORDS SUMMARY | 2018-04-18 11:02 | XMS REPORT | Clinical Summary ---
Author Author Admin, [facility] Organization [facility] Address Unknown Phone Unavailable Allergies, Adverse [...] Name NDC Status Provider Patient Instruction NYSTATIN 088922 UNIT/ML M/T SUSP 5mL po QID x 10 days NYSTATIN [id number] No Longer Active Erin Garsia APRN Active PREDNISONE 20 MG TAB 1 tablet twice daily for 2 days, then 1 tablet once daily for 2 days PREDNISONE 82622165764 No Longer Active Robbie Busby MD Active CEFDINIR 300 MG ORAL CAPS Take 1 cap po bid x 10 days CEFDINIR 56505978939 No Longer Active Robbie Busby MD Active AMLODIPINE BESYLATE 10 MG TABS 1 tablet by mouth daily AMLODIPINE BESYLATE 35394032265 Active Robbie Busby MD Active CARVEDILOL 25 MG TABS 1 & 1/2 TAB po BID CARVEDILOL 50423064021 Active Robbie Busby MD Active VITAMIN D3 59522 UNIT CAPS 2 CAPS PO WEEKLY CHOLECALCIFEROL 60637046304 Active Erin Garsia 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 KEISMULNAU-JFCI-OKUHCKOI 78540399778 Active Robbie Busby MD Active TOPIRAMATE 50 MG ORAL TABS take 1 tab po BID for migraines. TOPIRAMATE 65533805228 Active Robbie Busby MD Active HYDRALAZINE HCL 50 MG ORAL TABS TWO BY MOUTH THREE TIMES DAILY HYDRALAZINE HCL 65190421947 Active Robbie Bsuby MD Active MECLIZINE HCL 25 MG TAB one 4 times a day as needed for dizziness MECLIZINE HCL 32578079669 Active Robbie Busby MD Active TRILEPTAL 150 MG ORAL TABS 1 TAB PO Q HS OXCARBAZEPINE 07809558445 Active Robbie Busby MD Active TEMAZEPAM 15 MG ORAL CAPS 1 TAB PO Q HS TEMAZEPAM 68592426069 Active Robbie Busby MD Active ALPRAZOLAM 2 MG ORAL TABS 1 TAB PO BID ALPRAZOLAM 56661547337 Active Robbie Busby MD Active FENOFIBRATE 145 MG TABS Take one by mouth daily FENOFIBRATE 59728827107 No Longer Active Robbie Busby MD Active LAMISIL 125 MG ORAL PACK 1 TAB PO DAILY TERBINAFINE HCL 24589478894 Active Robbie Busby MD Active SPIRONOLACTONE 50 MG TABS 1 tablet by mouth twice a day SPIRONOLACTONE 26220277398 No Longer Active Robbie Busby MD Active HYDRALAZINE HCL 25 MG TABS 1 tablet by mouth tid for hypertension HYDRALAZINE HCL 58162229435 No Longer Active Robbie Busby MD Active VIIBRYD 40 MG TABS take 1 tab po qday for depression. VILAZODONE HCL 93757320435 No Longer Active Robbie Busby MD Active TERBINAFINE HCL 250 MG TABS 1 tab po qday for foot infection 2014 TERBINAFINE HCL 41090541760 No Longer Active Robbie Busby MD Active GABAPENTIN 300 MG CAPS 1 po q hs for nerve pain GABAPENTIN 28195788692 Active Robbie Busby MD Active FLONASE 50 MCG/ACT SUSP 1 spray each nostril twice daily for allergies and runny nose FLUTICASONE PROPIONATE 72623971089 Active Robbie Busby MD Active CHERATUSSIN AC 100-10 MG/5ML ORAL SOLN 7.5 mL PO q 4-6 hrs PRN cough GUAIFENESIN-CODEINE 83920817856 No Longer Active Robbie Busby MD Active AZITHROMYCIN 250 MG ORAL TABS 2 tablets PO today---then, 1 tablet PO daily x 4 more days (and 1 optional refill) AZITHROMYCIN 28128078995 No Longer Active Robbie Busby MD Active CLONIDINE HCL 0.2 MG ORAL TABS 1 TAB BY MOUTH EVERY 8 HOURS CLONIDINE HCL 01990598449 Active Robbie Busby MD Active HYDROCHLOROTHIAZIDE TABS Take one by mouth daily HYDROCHLOROTHIAZIDE TABS 03770921299 Active Alex ALVAREZ Active NORVASC 10 MG TAB 1 tablet by mouth daily AMLODIPINE BESYLATE 26454623421 No Longer Active Alex ALVAREZ Active IMDUR 60 MG TAB CR take 1 tab po qday for blood pressure ISOSORBIDE MONONITRATE Active Robbie Busby MD Active ISOSORBIDE DINITRATE 30 MG TABS Take one by mouth daily ISOSORBIDE DINITRATE 82680228658 No Longer Active Robbie Busby MD Active VIIBRYD 40 MG TABS 1 TA B PO DAILY VILAZODONE HCL 49769332316 Active Robbie Busby MD Active LORATADINE 10 MG TABS 1 tablet by mouth daily for congestion and allergies. LORATADINE 85308430438 Active Robbie Busby MD Active ZITHROMAX 250 MG TAB 2 po today, then 1 po q days 2-5 AZITHROMYCIN 96713604219 No Longer Active Robbie Busby MD Active HYDROCODONE-ACETAMINOPHEN 5-325 MG TABS 1 tab by mouth BID prn back pain 2013 HYDROCODONE-ACETAMINOPHEN 27867664778 Active Robbie Busby MD Active PCMVTCWH-SXM-5 0.3 MG/24HR PTWK apply 2 patches q week for HTN CLONIDINE HCL 72881408047 Active Robbie Busby MD Active NITROSTAT 0.4 MG SUBL PRN NITROGLYCERIN 29448893676 Active Robbie Busby MD Active DOXAZOSIN MESYLATE 4 MG TABS Take one by mouth daily DOXAZOSIN MESYLATE 91247471468 Active Robbie Busby MD Active TOPROL XL 200 MG [id number] Take one by mouth daily METOPROLOL SUCCINATE 19240089565 Active Robbie Busby MD Active VENLAFAXINE HCL ER 150 MG [id number] Take one by mouth daily VENLAFAXINE HCL 13363323802 Active Robbie Busby MD Active LIPITOR 40 MG TABS Take one by mouth daily ATORVASTATIN CALCIUM 15359360253 Active Robbie Busby MD Active ISOSORBIDE DINITRATE 30 MG TABS Take one by mouth daily ISOSORBIDE DINITRATE 30 MG TABS 533348 ISOSORBIDE DINITRATE Inactive NORVASC 10 MG TAB 1 tablet by mouth daily NORVASC 10 MG TAB 846098 AMLODIPINE BESYLATE Inactive AZITHROMYCIN 250 MG ORAL TABS 2 tablets PO today---then, 1 tablet PO daily x 4 more days (and 1 optional refill) AZITHROMYCIN 250 MG ORAL TABS 0599972 AZITHROMYCIN Inactive CHERATUSSIN AC 100-10 MG/5ML ORAL SOLN 7.5 mL PO q 4-6 hrs PRN cough CHERATUSSIN AC 100-10 MG/5ML ORAL SOLN 573633 GUAIFENESIN- CODEINE Inactive VIIBRYD 40 MG TABS take 1 tab po qday for depression. VIIBRYD 40 MG TABS VILAZODONE HCL Inactive HYDRALAZINE HCL 25 MG TABS 1 tablet by mouth tid for hypertension HYDRALAZINE HCL 25 MG TABS 312769 HYDRALAZINE HCL Inactive SPIRONOLACTONE 50 MG TABS 1 tablet by mouth twice a day SPIRONOLACTONE 50 MG TABS 701371 SPIRONOLACTONE Inactive FENOFIBRATE 145 MG TABS Take one by mouth daily FENOFIBRATE 145 MG TABS 446249 FENOFIBRATE Inactive PROTONIX 40 MG SOLR 1 po qday for acid reflux PROTONIX 40 MG SOLR 643353 PANTOPRAZOLE SODIUM Inactive CEFDINIR 300 MG ORAL CAPS Take 1 cap po bid x 10 days CEFDINIR 300 MG ORAL CAPS 576842 CEFDINIR Inactive PREDNISONE 20 MG TAB 1 tablet twice daily for 2 days, then 1 tablet once daily for 2 days PREDNISONE 20 MG TAB 327617 PREDNISONE Inactive NYSTATIN 754988 UNIT/ML M/T SUSP 5mL po QID x 10 days NYSTATIN 232439 UNIT/ML M/T SUSP 043298 NYSTATIN Inactive ZITHROMAX 250 MG TAB 2 po today, then 1 po q days 2-5 ZITHROMAX 250 MG TAB 3925329 AZITHROMYCIN Inactive TERBINAFINE HCL 250 MG TABS 1 tab po qday for foot infection 2014 TERBINAFINE HCL 250 MG TABS 294717 TERBINAFINE HCL Inactive KEFLEX 500 MG CAP 1 po TID x 10 days KEFLEX 500 MG CAP 761961 CEPHALEXIN Inactive Advance Directives Directive Description Start [...] diastolic - 8462-4 108 mm[Hg] BP del roi blood pressure, systolic - 8480-6 169 mm[Hg] [...] Acid - Chemistry sodium, serum 139 mmol/L 500-635 7276/04/22 carbon dioxide, venous blood 29.4 mmol/L 21.0-32.0 [...] to Follow Negative Lab Report: VITAMIN D, 25-HYDROXY/25337 - Chemistry vitamin D 25-hydroxy, serum 23 ng/mL 30-100 Encounters Code Encounter Date Provider Facility CPT-72113 Level 4 Est. Patient 22:55:17 CDT Robbie Busby MD [facility] CPT-64050 Level 3 Est. Patient 12:38:24 CDT Desmond Diaz DO [facility] CPT-52825 Level 4 Est. Patient 11:25:03 [employer] IN[employer] Robbie Busby MD [facility] CPT-11950 Level 4 Est. Patient 14:50:10 CDT Robbie Busby MD [facility] CPT-63975 Level 4 Est. Patient 23:30:43 CDT Robbie Busby MD [facility] CPT-37208 Level 4 Est. Patient 10:30:43 CDT Robbie Busby MD [facility] CPT-07844 Level 3 Est. Patient 17:08:12 CDT Alex ALVAREZ [facility] CPT-98165 Level 4 Est. Patient 17:51:38 CDT Robbie Busby MD [facility] CPT-83043 Level 4 Est. Patient 14:00:21 CDT Robbie Busby MD [facility] CPT-51121 Level 4 Est. Patient 12:46:48 CDT Robbie Busby MD [facility] CPT-50209 Level 4 Est. Patient 13:34:33 CDT Robbie Busby MD [facility] CPT-02761 Level 4 Est. Patient 16:58:28 CDT Robbie Busby MD [facility] CPT-71113 Level 3 Est. Patient 19:36:53 CDT Alex Shaw [facility] CPT-09700 Level 3 Est. Patient 12:58:15 CDT Robbie Busby MD [facility] Procedures Code Procedure Name Date Entry Date Standard Description CPT-36321 Venipuncture Draw Fee 15:20:23 CDT CPT-73269 Microalbumin - LAB USE ONLY 16:02:19 CDT CPT-67870 CBC - LAB USE ONLY 16:02:19 CDT CPT-84993 Venipuncture Draw Fee 16:02:19 CDT CPT-G0438 Initial Annual Wellness Exam 08:10:28 CDT CPT-69864 Venipuncture Draw Fee 13:07:17 CDT CPT-G0008 Administration of Influenza Virus Vaccine 16:09:59 CDT CPT-95501 Fluzone Quadrivalent Intramuscular Suspension 0.5 ML 16: 09:59 CDT CPT-93321 Spec Collection and Handling Fee 15:05:50 CDT
--- OUTSIDE RECORDS SUMMARY | 2018-04-18 11:02 | XMS REPORT | Clinical Summary ---
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 Acute upper respiratory infections of unspecified site [...] Status Provider Patient Instruction GUAIFENESIN 600 MG [id number] 1 tab po q am GUAIFENESIN 70445860909 No Longer Active Robbie Busby MD Active DIVALPROEX SODIUM ER 500 MG ORAL TABLET EXTENDED RELEASE 24 HOUR Once daily DIVALPROEX SODIUM 34520803100 Active Robbei Busby MD Active DEPO-TESTOSTERONE 200 MG/ML IM SOLN 1 IM Injections every 2 weeks for low testosterone TESTOSTERONE CYPIONATE 56055678466 Active Zulema Blank LPN Active CYCLOBENZAPRINE HCL 10 MG ORAL TABS 1 po TID PRN muscle spasm/pain for 10 days CYCLOBENZAPRINE HCL 04976060469 Active JONATHAN Moncada Active FLUTICASONE PROPIONATE 50 MCG/ACT SUSP 2 sprays per nostril bid for 1 week, then 1 spray bid FLUTICASONE PROPIONATE 73467669961 Active Jillina Franeha [employer] DESIGNER Active HYDRALAZINE HCL 25 MG ORAL TABS Take 1 tab BID. HYDRALAZINE HCL 74645412661 Active Jillina Anne [employer]IVIL STRU[employer]URAL DESIGNER Active VITAMIN D3 74304 UNIT ORAL TABS 2 po weekly CHOLECALCIFEROL 17279542330 Active Robbie Busby MD Active OXYCODONE HCL ER 10 MG ORAL T12A 1 tab po 3 times qd. OXYCODONE HCL 31647692060 Active Robbie Busby MD Active NITROSTAT 0.4 MG SUBL PRN NITROGLYCERIN 26950149395 No Longer Active Robbie Busby MD Active LORATADINE 10 MG TABS 1 tablet by mouth daily for congestion and allergies. LORATADINE 49134520661 No Longer Active Robbie Busby MD Active FLONASE 50 MCG/ACT SUSP 1 spray each nostril twice daily for allergies and runny nose FLUTICASONE PROPIONATE 96185437250 No Longer Active Robbie Busby MD Active FIORICET 50-300-40 MG ORAL CAPS take 1 tab po qday prn migraines. [id number] 04474127040 No Longer Active Robbie Busby MD Active VITAMIN D3 43669 UNIT CAPS 2 CAPS PO WEEKLY CHOLECALCIFEROL 66115587249 No Longer Active Robbie Busby MD Active CYCLOBENZAPRINE HCL 10 MG TABS 1 tablet by mouth three times daily as needed for muscle spasm/pain for 10 days CYCLOBENZAPRINE HCL 78415763028 No Longer Active Robbie Busby MD Active PREDNISONE 20 MG TAB take 3 tabs daily for 3 days, 2 tabs daily for 3 days, 1 tab daily for 3 days, 1/2 tab daily for 4 days PREDNISONE 58653105682 No Longer Active Erin Garsia APRN Active CLONIDINE HCL 0.2 MG ORAL TABS 1 TAB BY MOUTH EVERY 8 HOURS 12/29 CLONIDINE HCL 09604286039 No Longer Active Erin Garsia APRN Active MECLIZINE HCL 25 MG TAB one 4 times a day as needed for dizziness MECLIZINE HCL 69516321567 No Longer Active Erin Garsia APRN Active SPIRONOLACTONE 25 MG TAB 4 tablets by mouth daily SPIRONOLACTONE 53805174285 No Longer Active Erin Garsia APRN Active LEVAQUIN 500 MG TAB 1 tablet by mouth daily for 7 days LEVOFLOXACIN 85862218249 No Longer Active Erin Garsia APRN Active BACTRIM DS 800-160 MG TAB 1 tab by mouth twice daily TRIMETHOPRIM-SULFAMETHOXAZOLE 49263577309 No Longer Active Robbie Busby MD Active HYDRALAZINE HCL 50 MG ORAL TABS TWO BY MOUTH THREE TIMES DAILY HYDRALAZINE HCL 32112077425 No Longer Active Jillld Rodríguez APRN Active HYDROCODONE-ACETAMINOPHEN 5-325 MG TABS 1 tab by mouth BID prn back pain 2013 HYDROCODONE-ACETAMINOPHEN 09909214703 No Longer Active Jillina Zulemal [employer] DESIGNER Active HYDROCHLOROTHIAZIDE TABS Take one by mouth daily HYDROCHLOROTHIAZIDE TABS 73937241918 No Longer Active Jillina Frakierstenl [employer]IVIL [employer]URAL DESIGNER Active LAMISIL 125 MG ORAL PACK 1 TAB PO DAILY TERBINAFINE HCL 19025470264 No Longer Active Jillina Frakierstenl [employer]IVIL [employer]URAL DESIGNER Active TRILEPTAL 150 MG ORAL TABS 1 TAB PO Q HS OXCARBAZEPINE 43219207593 No Longer Active Jillina Frakierstenl [employer]IV[employer] DESIGNER Active BETADINE 10 % EXT SOLN 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 POVIDONE-IODINE 23622068682 No Longer Active Rober Rodríguez APRN Active NYSTATIN 675829 UNIT/ML M/T SUSP 5mL po QID x 10 days NYSTATIN 03267018289 No Longer Active Erin Garsia APRN Active PREDNISONE 20 MG TAB 1 tablet twice daily for 2 days, then 1 tablet once daily for 2 days PREDNISONE 56266768498 No Longer Active Robbie Busby MD Active CEFDINIR 300 MG ORAL CAPS Take 1 cap po bid x 10 days CEFDINIR 54724159247 No Longer Active Robbie Busby MD Active AMLODIPINE BESYLATE 10 MG TABS 1 tablet by mouth daily AMLODIPINE BESYLATE 65556224134 Active Robbie Busby MD Active CARVEDILOL 25 MG TABS 1 & 1/2 TAB po BID CARVEDILOL 10426013000 Active Robbie Busby MD Active NEXIUM 40 MG CPDR 1 cap by mouth daily ESOMEPRAZOLE MAGNESIUM 88883503147 Active Robbie Busby MD Active PROTONIX 40 MG SOLR 1 po qday for acid reflux PANTOPRAZOLE SODIUM 65642019317 No Longer Active Gali Raida Active KEFLEX 500 MG CAP 1 po TID x 10 days CEPHALEXIN 72366532030 No Longer Active Robbie Busby MD Active TOPIRAMATE 50 MG ORAL TABS take 1 tab po BID for migraines. TOPIRAMATE 28686946023 Active Robbie Busby MD Active TEMAZEPAM 15 MG ORAL CAPS 1 TAB PO Q HS TEMAZEPAM 85118943052 Active Robbie Busby MD Active ALPRAZOLAM 2 MG ORAL TABS 1 TAB PO BID ALPRAZOLAM 02023642657 Active Robbie Busby MD Active FENOFIBRATE 145 MG TABS Take one by mouth daily FENOFIBRATE 36784178305 No Longer Active Robbie Busby MD Active SPIRONOLACTONE 50 MG TABS 1 tablet by mouth twice a day SPIRONOLACTONE 11627018648 No Longer Active Robbie Busby MD Active HYDRALAZINE HCL 25 MG TABS 1 tablet by mouth tid for hypertension HYDRALAZINE HCL 61131566623 No Longer Active Robbie Busby MD Active VIIBRYD 40 MG TABS take 1 tab po qday for depression. VILAZODONE HCL 03321141825 No Longer Active Robbie Busby MD Active TERBINAFINE HCL 250 MG TABS 1 tab po qday for foot infection 2014 TERBINAFINE HCL 43572841430 No Longer Active Robbie Busby MD Active GABAPENTIN 300 MG CAPS 1 po q hs for nerve pain GABAPENTIN 29683138380 Active Robbie Busby MD Active CHERATUSSIN AC 100-10 MG/5ML ORAL SOLN 7.5 mL PO q 4-6 hrs PRN cough GUAIFENESIN-CODEINE 67812519469 No Longer Active Robbie Busby MD Active AZITHROMYCIN 250 MG ORAL TABS 2 tablets PO today---then, 1 tablet PO daily x 4 more days (and 1 optional refill) AZITHROMYCIN 27498537911 No Longer Active Robbie Busby MD Active NORVASC 10 MG TAB 1 tablet by mouth daily AMLODIPINE BESYLATE 05100897612 No Longer Active Alex ALVAREZ Active IMDUR 60 MG TAB CR take 1 tab po qday for blood pressure ISOSORBIDE MONONITRATE Active Robbie Busby MD Active ISOSORBIDE DINITRATE 30 MG TABS Take one by mouth daily ISOSORBIDE DINITRATE 05908272728 No Longer Active Robbie Busby MD Active VIIBRYD 40 MG TABS 1 TA B PO DAILY VILAZODONE HCL 12975764240 Active Robbie Busby MD Active ZITHROMAX 250 MG TAB 2 po today, then 1 po q days 2-5 AZITHROMYCIN 51237474528 No Longer Active Robbie Busby MD Active [id number] 0.3 MG/24HR PTWK apply 2 patches q week for HTN CLONIDINE HCL 05192478432 Active Robbie Busby MD Active DOXAZOSIN MESYLATE 4 MG TABS Take one by mouth daily DOXAZOSIN MESYLATE 63253934525 Active Robbie Busby MD Active TOPROL XL 200 MG [id number] Take one by mouth daily METOPROLOL SUCCINATE 73764275661 Active Robbie Busby MD Active VENLAFAXINE HCL ER 150 MG [id number] Take one by mouth daily VENLAFAXINE HCL 78005947149 Active Robbie Busby MD Active LIPITOR 40 MG TABS Take one by mouth daily ATORVASTATIN CALCIUM 55579568931 Active Robbie Busby MD Active ISOSORBIDE DINITRATE 30 MG TABS Take one by mouth daily ISOSORBIDE DINITRATE 30 MG TABS 937702 ISOSORBIDE DINITRATE Inactive NORVASC 10 MG TAB 1 tablet by mouth daily NORVASC 10 MG TAB 555667 AMLODIPINE BESYLATE Inactive AZITHROMYCIN 250 MG ORAL TABS 2 tablets PO today---then, 1 tablet PO daily x 4 more days (and 1 optional refill) AZITHROMYCIN 250 MG ORAL TABS 016216 AZITHROMYCIN Inactive CHERATUSSIN AC 100-10 MG/5ML ORAL SOLN 7.5 mL PO q 4-6 hrs PRN cough CHERATUSSIN AC 100-10 MG/5ML ORAL SOLN 908052 GUAIFENESIN- CODEINE Inactive VIIBRYD 40 MG TABS take 1 tab po qday for depression. VIIBRYD 40 MG TABS VILAZODONE HCL Inactive HYDRALAZINE HCL 25 MG TABS 1 tablet by mouth tid for hypertension HYDRALAZINE HCL 25 MG TABS 998444 HYDRALAZINE HCL Inactive SPIRONOLACTONE 50 MG TABS 1 tablet by mouth twice a day SPIRONOLACTONE 50 MG TABS 085272 SPIRONOLACTONE Inactive FENOFIBRATE 145 MG TABS Take one by mouth daily FENOFIBRATE 145 MG TABS 772595 FENOFIBRATE Inactive PROTONIX 40 MG SOLR 1 po qday for acid reflux PROTONIX 40 MG SOLR 916424 PANTOPRAZOLE SODIUM Inactive CEFDINIR 300 MG ORAL CAPS Take 1 cap po bid x 10 days CEFDINIR 300 MG ORAL CAPS 913516 CEFDINIR Inactive PREDNISONE 20 MG TAB 1 tablet twice daily for 2 days, then 1 tablet once daily for 2 days PREDNISONE 20 MG TAB 744843 PREDNISONE Inactive NYSTATIN 960419 UNIT/ML M/T SUSP 5mL po QID x 10 days NYSTATIN 200053 UNIT/ML M/T SUSP 055729 NYSTATIN Inactive BETADINE 10 % EXT SOLN 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 BETADINE 10 % EXT SOLN 7280046 POVIDONE-IODINE Inactive TRILEPTAL 150 MG ORAL TABS 1 TAB PO Q HS TRILEPTAL 150 MG ORAL TABS 015112 OXCARBAZEPINE Inactive LAMISIL 125 MG ORAL PACK 1 TAB PO DAILY LAMISIL 125 MG ORAL PACK TERBINAFINE HCL Inactive HYDROCHLOROTHIAZIDE TABS Take one by mouth daily HYDROCHLOROTHIAZIDE TABS HYDROCHLOROTHIAZIDE TABS Inactive HYDROCODONE-ACETAMINOPHEN 5-325 MG TABS 1 tab by mouth BID prn back pain 2013 HYDROCODONE-ACETAMINOPHEN 5-325 MG TABS 467679 HYDROCODONE -ACETAMINOPHEN Inactive HYDRALAZINE HCL 50 MG ORAL TABS TWO BY MOUTH THREE TIMES DAILY HYDRALAZINE HCL 50 MG ORAL TABS 205183 HYDRALAZINE HCL Inactive LEVAQUIN 500 MG TAB 1 tablet by mouth daily for 7 days LEVAQUIN 500 MG TAB 002167 LEVOFLOXACIN Inactive SPIRONOLACTONE 25 MG TAB 4 tablets by mouth daily SPIRONOLACTONE 25 MG TAB 414418 SPIRONOLACTONE Inactive MECLIZINE HCL 25 MG TAB one 4 times a day as needed for dizziness MECLIZINE HCL 25 MG TAB 125347 MECLIZINE HCL Inactive CLONIDINE HCL 0.2 MG ORAL TABS 1 TAB BY MOUTH EVERY 8 HOURS 12/29 CLONIDINE HCL 0.2 MG ORAL TABS 611786 CLONIDINE HCL Inactive CYCLOBENZAPRINE HCL 10 MG TABS 1 tablet by mouth three times daily as needed for muscle spasm/pain for 10 days CYCLOBENZAPRINE HCL 10 MG TABS 903925 CYCLOBENZAPRINE HCL Inactive VITAMIN D3 42715 UNIT CAPS 2 CAPS PO WEEKLY VITAMIN D3 58657 UNIT CAPS CHOLECALCIFEROL Inactive FIORICET 50-300-40 MG ORAL CAPS take 1 tab po qday prn migraines. FIORICET 50-300-40 MG ORAL CAPS 185527 [id number] Inactive FLONASE 50 MCG/ACT SUSP 1 spray each nostril twice daily for allergies and runny nose FLONASE 50 MCG/ACT SUSP 5364526 FLUTICASONE PROPIONATE Inactive LORATADINE 10 MG TABS 1 tablet by mouth daily for congestion and allergies. LORATADINE 10 MG TABS 420118 LORATADINE Inactive NITROSTAT 0.4 MG SUBL PRN NITROSTAT 0.4 MG SUBL 882610 NITROGLYCERIN Inactive GUAIFENESIN 600 MG [id number] 1 tab po q am GUAIFENESIN 600 MG [id number]-[id number] GUAIFENESIN Inactive ZITHROMAX 250 MG TAB 2 po today, then 1 po q days 2-5 ZITHROMAX 250 MG TAB 950745 AZITHROMYCIN Inactive TERBINAFINE HCL 250 MG TABS 1 tab po qday for foot infection 2014 TERBINAFINE HCL 250 MG TABS 368864 TERBINAFINE HCL Inactive KEFLEX 500 MG CAP 1 po TID x 10 days KEFLEX 500 MG CAP 740469 CEPHALEXIN Inactive BACTRIM DS 800-160 MG TAB 1 tab by mouth twice daily BACTRIM DS 800-160 MG TAB 782628 TRIMETHOPRIM-SULFAMETHOXAZOLE Inactive PREDNISONE 20 MG TAB take 3 tabs daily for 3 days, 2 tabs daily for 3 days, 1 tab daily for 3 days, 1/2 tab daily for 4 days PREDNISONE 20 MG TAB 128402 PREDNISONE Inactive Advance Directives Directive Description Start [...] Measured blood pressure, diastolic 99 mm[Hg] BP dle rio blood pressure, systolic 173 mm[Hg] BP [...] AUTO - Chemistry sodium, serum 142 mmol/L 404-292 6816/07/17 carbon dioxide, venous blood 28.2 mmol/L 21.0-32.0 [...] % 11.0-15.0 platelet count 185 THOUSAND/UL 10*3/mm3 436-388 3259/04/14 mean platelet volume 10.9 fL 7.5-12.5 Lab Report: LIPID PANEL, TSH/899, T4, FREE/866 - Chemistry cholesterol, serum 220 mg/dL 432-355 7544/04/14 HDL cholesterol, serum 30 mg/dL > OR=40 [...] 1.80 ng/mL 0.00-4.00 Lab Report: VITAMIN D, 25-HYDROXY/19549 - Chemistry vitamin D 25-hydroxy, serum 25 ng/mL 30-100 Office Visit: Confusion, dizziness after fall - Basic LDL target level 130 mg/dL Office Visit: Confusion, dizziness after fall - Chemistry HDL cholesterol, serum, target level 40 mg/dL triglyceride, target level 150 mg/dL cholesterol, target level 200 mg/dL Encounters Code Encounter Date Provider Facility CPT-45781 Level 3 Est. Patient 15:40:49 CDT Robbie Busby MD [facility] CPT-03055 Level 4 Est. Patient 15:18:19 CDT Robbie Busby MD [facility] CPT-32434 Level 3 Est. Patient 09:00:37 CDT Rober Rodríguez [facility] CPT-93327 Level 3 Est. Patient 16:07:10 CDT Robbie Busby MD [facility] CPT-34693 Level 4 Est. Patient 11:56:16 CDT Erin Garsia [facility] CPT-72529 Level 3 Est. Patient 17:48:02 CDT Robbie Busby MD [facility] CPT-94426 Level 4 Est. Patient 12:00:49 [employer] Rober Rodríguez [facility] CPT-24570 Level 3 Est. Patient 09:16:37 CDT Robbie Busby MD [facility] CPT-64156 Level 3 Est. Patient 19:38:43 CDT Robbie Busby MD [facility] CPT-66287 Level 3 Est. Patient 11:53:38 CDT Robbie Busby MD [facility]-87445 Level 4 Est. Patient 12:52:22 CDT Rober Rodríguez APRN [facility] CPT-86713 Level 4 Est. Patient 22:55:17 CDT Robbie Busby MD [facility]-49443 Level 3 Est. Patient 12:38:24 CDT Desmond Diaz DO [facility] CPT-69792 Level 4 Est. Patient 11:25:03 [employer] Robbie Busby MD [facility] [place]-22862 Level 4 Est. Patient 14:50:10 CDT Robbie Busby MD [facility] [place]-83601 Level 4 Est. Patient 23:30:43 CDT Robbie Busby MD [facility] CPT-33054 Level 4 Est. Patient 10:30:43 CDT Robbie Busby MD [facility] CPT-01725 Level 3 Est. Patient 17:08:[address] [facility] CPT-04253 Level 4 Est. Patient 17:51:38 CDT Robbie Busby MD [facility] CPT-59536 Level 4 Est. Patient 14:00:21 CDT Robbie Busby MD [facility] CPT-30725 Level 4 Est. Patient 12:46:48 CDT Robbie Busby MD [facility] [place]-33312 Level 4 Est. Patient 13:34:33 CDT Robbie Busby MD [facility] [place]-65762 Level 4 Est. Patient 16:58:28 CDT Robbie Busby MD [facility] [place]-10302 Level 3 Est. Patient 19:36:[address] [facility] CPT-30785 Level 3 Est. Patient 12:58:15 CDT Robbie Busby MD [facility] Procedures Code Procedure Name Date Entry Date Standard Description CPT-J1071 Depo Testosterone 200mg 14:20:43 CDT CPT-03390 Abx/Therapy Injection 14:20:43 CDT CPT-J1071 Depo Testosterone 200mg 14:17:22 CDT CPT-25832 Abx/Therapy Injection 14:17:22 CDT CPT-J1071 Depo Testosterone 200mg 09:03:53 CDT CPT-53205 Abx/Therapy Injection 09:03:53 CDT CPT-G0439 [facility] Annual Wellness Exam 16:47:44 CDT CPT-J1071 Depo Testosterone 200mg 09:06:28 CDT CPT-74203 Abx/Therapy Injection 09:06:28 CDT CPT-J1071 Depo Testosterone 200mg 08:30:01 CDT CPT-99270 Abx/Therapy Injection 08:30:01 CDT CPT-J1071 Depo Testosterone 200mg 08:24:00 CDT CPT-08150 Abx/Therapy Injection 08:24:00 CDT CPT-38114 Venipuncture Draw Fee 14:39:06 CDT CPT-39765 Ribs unilateral 2V - XRAY USE ONLY 12:10:11 CDT CPT-56686 First Vx - Ix admin for Medicare patients 16:32:53 CDT CPT-44740 Boostrix Intramuscular Suspension 5-2.5-18.5 16:32:53 CDT CPT-72979 TB Skin Test 11:42:28 CDT CPT-11958 Tdap 7yrs or > 11:42:28 CDT CPT-J0696 Rocephin 1000 mg (Ceftriaxone) 17:43:43 [employer] CPT-J1040 Depo Medrol 80 mg (Methyl Prednisolone Acetate) 17:43: 43 [employer] CPT-J1100 Decadron 8mg (Dexamethasone) 17:43:42 [employer] CPT-96535 Abx/Therapy Injection 17:43:42 [employer] CPT-83697 Abx/Therapy Injection 17:43:42 [employer] CPT-J1040 Depo Medrol 80 mg (Methyl Prednisolone Acetate) 09:43: 34 [employer] CPT-J1100 Decadron 8mg (Dexamethasone) 09:43:34 [employer] CPT-J0696 Rocephin 1gm Inj Solr 09:43:34 [employer] CPT-00563 Wound Culture - LAB USE ONLY 14:00:21 CDT CPT-I/D I/D Abscess 09:16:37 CDT CPT-81158 Venipuncture Draw Fee 15:20:23 CDT CPT-67928 Microalbumin - LAB USE ONLY 16:02:19 CDT CPT-89782 CBC - LAB USE ONLY 16:02:19 CDT CPT-43138 Venipuncture Draw Fee 16:02:19 CDT CPT-G0438 Initial Annual Wellness Exam 08:10:28 CDT CPT-14876 Venipuncture Draw Fee 13:07:17 CDT CPT-G0008 Administration of Influenza Virus Vaccine 16:09:59 CDT CPT-25160 Fluzone Quadrivalent Intramuscular Suspension 0.5 ML 16: 09:59 CDT CPT-59820 Spec Collection and Handling Fee 15:05:50 CDT
--- OUTSIDE RECORDS SUMMARY | 2018-04-18 11:03 | XMS REPORT | Clinical Summary ---
Author Author Admin, [place] Organization [employer] Address Unknown Phone Unavailable Allergies, Adverse [...] MD Lumbago Degenerative arthritis 715.90 Active Robbie uBsby MD Osteoarthrosis, unspecified whether generalized or localized, [...] 1 tab by mouth twice daily TRIMETHOPRIM-SULFAMETHOXAZOLE 97016898213 No Longer Active Robbie Busby MD Active SPIRONOLACTONE 25 MG TAB 4 tablets by mouth daily SPIRONOLACTONE 50900013040 Active Robbie Busby MD Active HYDRALAZINE HCL 50 MG ORAL TABS TWO BY MOUTH THREE TIMES DAILY HYDRALAZINE HCL 49744649418 No Longer Active 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 ENTERPRISE ARCHITECT Active HYDROCODONE-ACETAMINOPHEN 5-325 MG TABS 1 tab by mouth BID prn back pain 2013 HYDROCODONE-ACETAMINOPHEN 84195649833 No Longer Active Jillina Frazell ENTERPRISE ARCHITECT Active HYDROCHLOROTHIAZIDE TABS Take one by mouth daily HYDROCHLOROTHIAZIDE TABS 80076727373 No Longer Active Jillina Frazell ENTERPRISE ARCHITECT Active LAMISIL 125 MG ORAL PACK 1 TAB PO DAILY TERBINAFINE HCL 08537221741 No Longer Active Jillina Frazell ENTERPRISE ARCHITECT Active TRILEPTAL 150 MG ORAL TABS 1 TAB PO Q HS OXCARBAZEPINE 14075289747 No Longer Active Jillina Frazell ENTERPRISE ARCHITECT Active BETADINE 10 % EXT SOLN 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 POVIDONE-IODINE 81888965574 No Longer Active Jillina Frazell ENTERPRISE ARCHITECT Active NYSTATIN 186337 UNIT/ML M/T SUSP 5mL po QID x 10 days NYSTATIN 18879271603 No Longer Active Erin Garsia APRN Active PREDNISONE 20 MG TAB 1 tablet twice daily for 2 days, then 1 tablet once daily for 2 days PREDNISONE 74428389198 No Longer Active Robbie Busby MD Active CEFDINIR 300 MG ORAL CAPS Take 1 cap po bid x 10 days CEFDINIR 87178214005 No Longer Active Robbie Busby MD Active AMLODIPINE BESYLATE 10 MG TABS 1 tablet by mouth daily AMLODIPINE BESYLATE 67885822751 Active Robbie Busby MD Active CARVEDILOL 25 MG TABS 1 & 1/2 TAB po BID CARVEDILOL 12092162276 Active Robbie Busby MD Active VITAMIN D3 48789 UNIT CAPS 2 CAPS PO WEEKLY CHOLECALCIFEROL 85494317171 Active Erin Garsia APRN Active NEXIUM 40 MG CPDR 1 cap by mouth daily ESOMEPRAZOLE MAGNESIUM 81920923173 Active Gali Negro Active PROTONIX 40 MG SOLR 1 po qday for acid reflux PANTOPRAZOLE SODIUM 39473910610 No Longer Active Galileonila Torresjuan carlos Active KEFLEX 500 MG CAP 1 po TID x 10 days CEPHALEXIN 36306977502 No Longer Active Robbie Busby MD Active FIORICET 50-300-40 MG ORAL CAPS take 1 tab po qday prn migraines. [id number]-[id number] 37908175351 Active Robbie Busby MD Active TOPIRAMATE 50 MG ORAL TABS take 1 tab po BID for migraines. TOPIRAMATE 97186334847 Active Robbie Busby MD Active MECLIZINE HCL 25 MG TAB one 4 times a day as needed for dizziness MECLIZINE HCL 76028514634 Active Robbie Busby MD Active TEMAZEPAM 15 MG ORAL CAPS 1 TAB PO Q HS TEMAZEPAM 07771570861 Active Robbie Busby MD Active ALPRAZOLAM 2 MG ORAL TABS 1 TAB PO BID ALPRAZOLAM 45855111262 Active Robbie Busby MD Active FENOFIBRATE 145 MG TABS Take one by mouth daily FENOFIBRATE 40957993099 No Longer Active Robbie Busby MD Active SPIRONOLACTONE 50 MG TABS 1 tablet by mouth twice a day SPIRONOLACTONE 03580523373 No Longer Active Robbie Busby MD Active HYDRALAZINE HCL 25 MG TABS 1 tablet by mouth tid for hypertension HYDRALAZINE HCL 14578834767 No Longer Active Robbie Busby MD Active VIIBRYD 40 MG TABS take 1 tab po qday for depression. VILAZODONE HCL 69939169671 No Longer Active Robbie Busby MD Active TERBINAFINE HCL 250 MG TABS 1 tab po qday for foot infection 2014 TERBINAFINE HCL 21766440791 No Longer Active Robbie Busby MD Active GABAPENTIN 300 MG CAPS 1 po q hs for nerve pain GABAPENTIN 65442841760 Active Robbie Busby MD Active FLONASE 50 MCG/ACT SUSP 1 spray each nostril twice daily for allergies and runny nose FLUTICASONE PROPIONATE 29262114418 Active Robbie Busby MD Active CHERATUSSIN AC 100-10 MG/5ML ORAL SOLN 7.5 mL PO q 4-6 hrs PRN cough GUAIFENESIN-CODEINE 36102902868 No Longer Active Robbie Busby MD Active AZITHROMYCIN 250 MG ORAL TABS 2 tablets PO today---then, 1 tablet PO daily x 4 more days (and 1 optional refill) AZITHROMYCIN 45432540992 No Longer Active Robbie Busby MD Active CLONIDINE HCL 0.2 MG ORAL TABS 1 TAB BY MOUTH EVERY 8 HOURS CLONIDINE HCL 75535145956 Active Robbie Busby MD Active NORVASC 10 MG TAB 1 tablet by mouth daily AMLODIPINE BESYLATE 90947029851 No Longer Active Alex ALVAREZ Active IMDUR 60 MG TAB CR take 1 tab po qday for blood pressure ISOSORBIDE MONONITRATE Active Robbie Busby MD Active ISOSORBIDE DINITRATE 30 MG TABS Take one by mouth daily ISOSORBIDE DINITRATE 16128023548 No Longer Active Robbie Busby MD Active VIIBRYD 40 MG TABS 1 TA B PO DAILY VILAZODONE HCL 20650347377 Active Robbie Busby MD Active LORATADINE 10 MG TABS 1 tablet by mouth daily for congestion and allergies. LORATADINE 33843936684 Active Robbie Busby MD Active ZITHROMAX 250 MG TAB 2 po today, then 1 po q days 2-5 AZITHROMYCIN 58086893091 No Longer Active Robbie Busby MD Active [id number]-HXQ-3 0.3 MG/24HR PTWK apply 2 patches q week for HTN CLONIDINE HCL 20379307335 Active Robbie Busby MD Active NITROSTAT 0.4 MG SUBL PRN NITROGLYCERIN 56971756760 Active Robbie Busby MD Active DOXAZOSIN MESYLATE 4 MG TABS Take one by mouth daily DOXAZOSIN MESYLATE 57878857428 Active Robbie Busby MD Active TOPROL XL 200 MG [id number] Take one by mouth daily METOPROLOL SUCCINATE 83788611963 Active Robbie Busby MD Active VENLAFAXINE HCL ER 150 MG [id number] Take one by mouth daily VENLAFAXINE HCL 00055508515 Active Robbie Busby MD Active LIPITOR 40 MG TABS Take one by mouth daily ATORVASTATIN CALCIUM 33331565985 Active Robbie Busby MD Active ISOSORBIDE DINITRATE 30 MG TABS Take one by mouth daily ISOSORBIDE DINITRATE 30 MG TABS 191639 ISOSORBIDE DINITRATE Inactive NORVASC 10 MG TAB 1 tablet by mouth daily NORVASC 10 MG TAB 950161 AMLODIPINE BESYLATE Inactive AZITHROMYCIN 250 MG ORAL TABS 2 tablets PO today---then, 1 tablet PO daily x 4 more days (and 1 optional refill) AZITHROMYCIN 250 MG ORAL TABS 6493091 AZITHROMYCIN Inactive CHERATUSSIN AC 100-10 MG/5ML ORAL SOLN 7.5 mL PO q 4-6 hrs PRN cough CHERATUSSIN AC 100-10 MG/5ML ORAL SOLN 720490 GUAIFENESIN- CODEINE Inactive VIIBRYD 40 MG TABS take 1 tab po qday for depression. VIIBRYD 40 MG TABS VILAZODONE HCL Inactive HYDRALAZINE HCL 25 MG TABS 1 tablet by mouth tid for hypertension HYDRALAZINE HCL 25 MG TABS 036826 HYDRALAZINE HCL Inactive SPIRONOLACTONE 50 MG TABS 1 tablet by mouth twice a day SPIRONOLACTONE 50 MG TABS 997260 SPIRONOLACTONE Inactive FENOFIBRATE 145 MG TABS Take one by mouth daily FENOFIBRATE 145 MG TABS 811737 FENOFIBRATE Inactive PROTONIX 40 MG SOLR 1 po qday for acid reflux PROTONIX 40 MG SOLR 142999 PANTOPRAZOLE SODIUM Inactive CEFDINIR 300 MG ORAL CAPS Take 1 cap po bid x 10 days CEFDINIR 300 MG ORAL CAPS 270232 CEFDINIR Inactive PREDNISONE 20 MG TAB 1 tablet twice daily for 2 days, then 1 tablet once daily for 2 days PREDNISONE 20 MG TAB 814099 PREDNISONE Inactive NYSTATIN 563307 UNIT/ML M/T SUSP 5mL po QID x 10 days NYSTATIN 216772 UNIT/ML M/T SUSP 712078 NYSTATIN Inactive BETADINE 10 % EXT SOLN 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 BETADINE 10 % EXT SOLN 9246760 POVIDONE-IODINE Inactive TRILEPTAL 150 MG ORAL TABS 1 TAB PO Q HS TRILEPTAL 150 MG ORAL TABS 739424 OXCARBAZEPINE Inactive LAMISIL 125 MG ORAL PACK 1 TAB PO DAILY LAMISIL 125 MG ORAL PACK TERBINAFINE HCL Inactive HYDROCHLOROTHIAZIDE TABS Take one by mouth daily HYDROCHLOROTHIAZIDE TABS HYDROCHLOROTHIAZIDE TABS Inactive HYDROCODONE-ACETAMINOPHEN 5-325 MG TABS 1 tab by mouth BID prn back pain 2013 HYDROCODONE-ACETAMINOPHEN 5-325 MG TABS 081304 HYDROCODONE -ACETAMINOPHEN Inactive HYDRALAZINE HCL 50 MG ORAL TABS TWO BY MOUTH THREE TIMES DAILY HYDRALAZINE HCL 50 MG ORAL TABS 830660 HYDRALAZINE HCL Inactive ZITHROMAX 250 MG TAB 2 po today, then 1 po q days 2-5 ZITHROMAX 250 MG TAB 7799764 AZITHROMYCIN Inactive TERBINAFINE HCL 250 MG TABS 1 tab po qday for foot infection 2014 TERBINAFINE HCL 250 MG TABS 007956 TERBINAFINE HCL Inactive KEFLEX 500 MG CAP 1 po TID x 10 days KEFLEX 500 MG CAP 866108 CEPHALEXIN Inactive BACTRIM DS 800-160 MG TAB 1 tab by mouth twice daily BACTRIM DS 800-160 MG TAB 462248 TRIMETHOPRIM-SULFAMETHOXAZOLE Inactive Advance Directives Directive Description Start [...] Acid - Chemistry sodium, serum 139 mmol/L 351-679 8767/04/22 carbon dioxide, venous blood 29.4 mmol/L 21.0-32.0 [...] to Follow Negative Lab Report: VITAMIN D, 25-HYDROXY/65280 - Chemistry vitamin D 25-hydroxy, serum 23 ng/mL 30-100 Encounters Code Encounter Date Provider Facility [id number] Level 3 Est. Patient 09:16:37 CDT Robbie Busby MD [facility] CPT-41869 Level 3 Est. Patient 19:38:43 CDT Robbie Busby MD [facility]-60911 Level 3 Est. Patient 11:53:38 CDT Robbie Busby MD [facility]-94706 Level 4 Est. Patient 12:52:22 CDT Rober Rodríguez APRN [facility] CPT-33462 Level 4 Est. Patient 22:55:17 CDT Robbie Busby MD [facility] CPT-33790 Level 3 Est. Patient 12:38:24 CDT Desmond Diaz DO [facility] CPT-71429 Level 4 Est. Patient 11:25:03 [employer] Robbie Busby MD [facility] CPT-39253 Level 4 Est. Patient 14:50:10 CDT Robbie Busby MD [facility] CPT-05949 Level 4 Est. Patient 23:30:43 CDT Robbie Busby MD [facility] CPT-84506 Level 4 Est. Patient 10:30:43 CDT Robbie Busby MD [facility] CPT-85138 Level 3 Est. Patient 17:08:12 CDT Alex ALVAREZ [facility] CPT-89420 Level 4 Est. Patient 17:51:38 CDT Robbie Busby MD [facility] CPT-86209 Level 4 Est. Patient 14:00:21 CDT Robbie Busby MD [facility] CPT-81362 Level 4 Est. Patient 12:46:48 CDT Robbie Busby MD [facility] CPT-15587 Level 4 Est. Patient 13:34:33 CDT Robbie Busby MD [facility] CPT-12328 Level 4 Est. Patient 16:58:28 CDT Robbie Busby MD [facility] CPT-19566 Level 3 Est. Patient 19:36:53 CDT Alex ALVAREZ [facility] CPT-48053 Level 3 Est. Patient 12:58:15 CDT Robbie Busby MD [facility] Procedures Code Procedure Name Date Entry Date Standard Description CPT-29943 Wound Culture - LAB USE ONLY 14:00:21 CDT CPT-I/D I/D Abscess 09:16:37 CDT CPT-56122 Venipuncture Draw Fee 15:20:23 CDT CPT-92457 Microalbumin - LAB USE ONLY 16:02:19 CDT CPT-45706 CBC - LAB USE ONLY 16:02:19 CDT CPT-14231 Venipuncture Draw Fee 16:02:19 CDT CPT-G0438 Initial Annual Wellness Exam 08:10:28 CDT CPT-71125 Venipuncture Draw Fee 13:07:17 CDT CPT-G0008 Administration of Influenza Virus Vaccine 16:09:59 CDT CPT-36088 Fluzone Quadrivalent Intramuscular Suspension 0.5 ML 16: 09:59 CDT CPT-52152 Spec Collection and Handling Fee 15:05:50 CDT
--- OUTSIDE RECORDS SUMMARY | 2018-04-18 11:04 | XMS REPORT | Clinical Summary ---
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 Desmond Diaz DO Other malignant secondary hypertension Tachycardia 785.0 Active Rober Rodríguez [employer] Tachycardia, unspecified Insect bite, infected 919.5 Resolved Desmond Diaz DO Insect bite, nonvenomous, of other, multiple, and unspecified sites, infected Abscess, skin 682.9 Resolved Desmond Diaz DO Cellulitis and abscess of unspecified sites URI 465.9 Resolved Desmond Diaz DO Acute upper respiratory infections of unspecified site Hypertension 401.9 Active Rober Rodríguez [employer] Unspecified essential hypertension Sinusitis - acute 461.9 [...] Hypogonadism, low testosterone 257.2 Active Erin Mai [employer] Other testicular hypofunction Low back pain, chronic [...] 36.0-36.9, adult Sinusitis ICD-461.9 Inactive Emily Atwood NEWS TECHNICAL DIRECTOR 2017 Low back pain, acute ICD-724.2 Inactive Emily Atwood NEWS TECHNICAL DIRECTOR Low back pain, chronic ICD-724.2 Inactive Emily Atwood NEWS TECHNICAL DIRECTOR Bronchitis, acute ICD-466.0 Inactive Emily Atwood NEWS TECHNICAL DIRECTOR Onychomycosis, toenails ICD-110.1 Inactive Emily Atwood NEWS TECHNICAL DIRECTOR Dizziness ICD-780.4 Inactive Emily Atwood NEWS TECHNICAL DIRECTOR 2017 Folliculitis ICD-704.8 Inactive Emily Atwood NEWS TECHNICAL DIRECTOR Pharyngitis-Acute ICD-462 Inactive Emily Atwood NEWS TECHNICAL DIRECTOR Fatigue ICD-780.79 Inactive Emily Atwood NEWS TECHNICAL DIRECTOR 09/20 Hypertension, secondary, malignant ICD-405.09 Inactive Emily Atwood NEWS TECHNICAL DIRECTOR Insect bite, infected ICD-919.5 Inactive Emily Atwood NEWS TECHNICAL DIRECTOR Abscess, skin ICD-682.9 Inactive Emily Atwood NEWS TECHNICAL DIRECTOR URI ICD-465.9 Inactive Emily Atwood NEWS TECHNICAL DIRECTOR Sinusitis - acute ICD-461.9 Inactive Emily Atwood NEWS TECHNICAL DIRECTOR Acute confusion ICD-293.0 Inactive Emily Atwood NEWS TECHNICAL DIRECTOR Headache ICD-784.0 Inactive Emily Atwood NEWS TECHNICAL DIRECTOR 09/20 Back pain ICD-724.5 Inactive Emily Atwood NEWS TECHNICAL DIRECTOR 2017 Rib pain, right sided ICD-786.50 Inactive Emily Atwood NEWS TECHNICAL DIRECTOR Myalgias ICD-729.1 Inactive Emily Atwood NEWS TECHNICAL DIRECTOR 09/20 URI ICD-465.9 Inactive Emily Atwood NEWS TECHNICAL DIRECTOR Bronchitis-Acute ICD-466.0 Inactive Desmond Diaz DO Medication List Medication Instructions Start Date Stop Date Generic Name NDC Status Provider Patient Instruction MONTELUKAST SODIUM 10 MG ORAL TABLET 1 tab po daily for allergies MONTELUKAST SODIUM 87258688553 Active JONATHAN Moncada Active IMDUR 60 MG ORAL TABLET EXTENDED RELEASE 24 HOUR 1 po q day ISOSORBIDE MONONITRATE 64657830275 Active Emma Hernandez Active METOPROLOL SUCCINATE ER 200 MG ORAL TABLET EXTENDED RELEASE 24 HOUR take 1 tab po qday for high blood pressure and rapid pulse METOPROLOL SUCCINATE 64124537213 Active Robbie Busby MD Active [id number]-6 0.3 MG/24HR TRANSDERMAL PATCH WEEKLY apply 2 patches q week for HTN CLONIDINE HCL 34701426827 No Longer Active Robbie Busby MD Active IMDUR 60 MG ORAL TABLET EXTENDED RELEASE 24 HOUR take 1 tab po qday for blood pressure ISOSORBIDE MONONITRATE 41201049030 No Longer Active Robbie Busby MD Active TEMAZEPAM 15 MG ORAL CAPSULE 1 TAB PO Q HS TEMAZEPAM 18647645551 No Longer Active Robbie Busby MD Active TOPIRAMATE 50 MG ORAL TABLET 1 po BID for migraines TOPIRAMATE 53733700411 No Longer Active Robbie Busby MD Active CYCLOBENZAPRINE HCL 10 MG ORAL TABLET 1 tablet by mouth three times daily as needed for muscle spasm/pain CYCLOBENZAPRINE HCL 37463563566 No Longer Active Robbie Busby MD Active TOPROL XL 200 MG ORAL TABLET EXTENDED RELEASE 24 HOUR Take one by mouth daily METOPROLOL SUCCINATE 45913605694 No Longer Active Robbie Busby MD Active METFORMIN HCL 500 MG ORAL TABLET 1 tablet by mouth daily for diabetes type 2 METFORMIN HCL 17783355234 Active Robbie Busby MD Active SINGULAIR 10 MG ORAL TABLET 1 po qday for allergies. MONTELUKAST SODIUM 75319722409 No Longer Active Robbie Busby MD Active PREDNISONE 20 MG ORAL TABLET two tabs by mouth today, then one tab by mouth days two and three PREDNISONE 29340952182 No Longer Active Robbie Busby MD Active AZITHROMYCIN 250 MG ORAL TABLET 2 po qd x 1 day, then 1 po qd x 4 days 09/20 AZITHROMYCIN 13636017106 No Longer Active Desmond Diaz DO Active TOPIRAMATE 50 MG ORAL TABLET take 1 tab po BID for migraines. TOPIRAMATE 90420289802 No Longer Active Desmond Diaz DO Active CYCLOBENZAPRINE HCL 10 MG ORAL TABLET 1 po TID PRN muscle spasm/pain for 10 days CYCLOBENZAPRINE HCL 87359720797 No Longer Active Desmond Diaz DO Active GUAIFENESIN ER 600 MG ORAL TABLET EXTENDED RELEASE 12 HOUR 1 tab po q am 2016 GUAIFENESIN 04856870184 No Longer Active Robbie Busby MD Active DIVALPROEX SODIUM ER 500 MG ORAL TABLET EXTENDED RELEASE 24 HOUR Once daily DIVALPROEX SODIUM 26276595272 Active Robbie Busby MD Active DEPO-TESTOSTERONE 200 MG/ML INTRAMUSCULAR SOLUTION 1 IM Injections every 2 weeks for low testosterone TESTOSTERONE CYPIONATE 97471867514 Active Zulema Blank LPN Active FLUTICASONE PROPIONATE 50 MCG/ACT NASAL SUSPENSION 2 sprays per nostril bid for 1 week, then 1 spray bid FLUTICASONE PROPIONATE 43381182051 Active Rober Rodríguez 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 HYDRALAZINE HCL 25 MG ORAL TABLET Take 1 tab BID. HYDRALAZINE HCL 89628460353 Active Rober Rodríguez 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 VITAMIN D3 26726 UNIT ORAL TABLET 2 po weekly CHOLECALCIFEROL 38534434052 Active Robbie Busby MD Active OXYCODONE HCL ER 10 MG ORAL TABLET ER 12 HOUR ABUSE-DETERRENT 1 tab po 3 times qd. OXYCODONE HCL 01943034634 Active Robbie Busby MD Active NITROSTAT 0.4 MG SUBLINGUAL TABLET SUBLINGUAL PRN NITROGLYCERIN 04020426802 No Longer Active Robbie Busby MD Active LORATADINE 10 MG ORAL TABLET 1 tablet by mouth daily for congestion and allergies. LORATADINE 72083623518 No Longer Active Robbie Busby MD Active FLONASE 50 MCG/ACT NASAL SUSPENSION 1 spray each nostril twice daily for allergies and runny nose FLUTICASONE PROPIONATE 19920831350 No Longer Active Robbie Busby MD Active FIORICET 50-300-40 MG ORAL CAPSULE take 1 tab po qday prn migraines. [id number]-VXBY-JOZFJROW 31062543593 No Longer Active Robbie Busby MD Active VITAMIN D3 82382 UNIT ORAL CAPSULE 2 CAPS PO WEEKLY CHOLECALCIFEROL 42536733010 No Longer Active Robbie Busby MD Active CYCLOBENZAPRINE HCL 10 MG ORAL TABLET 1 tablet by mouth three times daily as needed for muscle spasm/pain for 10 days CYCLOBENZAPRINE HCL 94366485985 No Longer Active Robbie Busby MD Active PREDNISONE 20 MG ORAL TABLET take 3 tabs daily for 3 days, 2 tabs daily for 3 days, 1 tab daily for 3 days, 1/2 tab daily for 4 days PREDNISONE 57998813285 No Longer Active Erin Arell 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 CLONIDINE HCL 0.2 MG ORAL TABLET 1 TAB BY MOUTH EVERY 8 HOURS CLONIDINE HCL 27007296795 No Longer Active Erin Arell 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 MECLIZINE HCL 25 MG ORAL TABLET one 4 times a day as needed for dizziness MECLIZINE HCL 93467731496 No Longer Active Erin Arell 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 SPIRONOLACTONE 25 MG ORAL TABLET 4 tablets by mouth daily SPIRONOLACTONE 26589796544 No Longer Active Erin Arell 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 LEVAQUIN 500 MG ORAL TABLET 1 tablet by mouth daily for 7 days LEVOFLOXACIN 54173489036 No Longer Active Erin Arell 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 BACTRIM DS 800-160 MG ORAL TABLET 1 tab by mouth twice daily 2015 TRIMETHOPRIM-SULFAMETHOXAZOLE 07907552349 No Longer Active Robbie Busby MD Active HYDRALAZINE HCL 50 MG ORAL TABLET TWO BY MOUTH THREE TIMES DAILY HYDRALAZINE HCL 99430004668 No Longer Active Jillina Frazell 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 HYDROCODONE-ACETAMINOPHEN 5-325 MG ORAL TABLET 1 tab by mouth BID prn back pain HYDROCODONE-ACETAMINOPHEN 17138062514 No Longer Active Jillina Frazell 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 HYDROCHLOROTHIAZIDE TABLET Take one by mouth daily HYDROCHLOROTHIAZIDE TABS 73985185526 No Longer Active Jillina Frazell 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 LAMISIL 125 MG ORAL PACKET 1 TAB PO DAILY TERBINAFINE HCL 78379069864 No Longer Active Jillina Frazell 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 TRILEPTAL 150 MG ORAL TABLET 1 TAB PO Q HS OXCARBAZEPINE 10916117703 No Longer Active Jillina Frazell 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 BETADINE 10 % EXTERNAL SOLUTION 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 07/29 POVIDONE-IODINE 32985267873 No Longer Active Rober Rodríguez APRN Active NYSTATIN 439584 UNIT/ML MOUTH/THROAT SUSPENSION 5mL po QID x 10 days NYSTATIN 73537584638 No Longer Active Erin Mai APRN Active PREDNISONE 20 MG ORAL TABLET 1 tablet twice daily for 2 days, then 1 tablet once daily for 2 days PREDNISONE 44651586771 No Longer Active Robbie Busby MD Active CEFDINIR 300 MG ORAL CAPSULE Take 1 cap po bid x 10 days CEFDINIR 92127136225 No Longer Active Robbie Busby MD Active AMLODIPINE BESYLATE 10 MG ORAL TABLET 1 tablet by mouth daily AMLODIPINE BESYLATE 60430664837 Active Robbie Busby MD Active CARVEDILOL 25 MG ORAL TABLET 1 & 1/2 TAB po BID CARVEDILOL 18047874631 Active Robbie Busby MD Active NEXIUM 40 MG ORAL CAPSULE DELAYED RELEASE 1 cap by mouth daily ESOMEPRAZOLE MAGNESIUM 22553570252 Active Robbie Busby MD Active PROTONIX 40 MG INTRAVENOUS SOLUTION RECONSTITUTED 1 po qday for acid reflux PANTOPRAZOLE SODIUM 91035085489 No Longer Active Gali Raida Active KEFLEX 500 MG ORAL CAPSULE 1 po TID x 10 days CEPHALEXIN 53046462047 No Longer Active Robbie Busby MD Active ALPRAZOLAM 2 MG ORAL TABLET 1 TAB PO BID ALPRAZOLAM 61394148425 Active Robbie Busby MD Active FENOFIBRATE 145 MG ORAL TABLET Take one by mouth daily FENOFIBRATE 85603065104 No Longer Active Robbie Busby MD Active SPIRONOLACTONE 50 MG ORAL TABLET 1 tablet by mouth twice a day SPIRONOLACTONE 40259170403 No Longer Active Robbie Busby MD Active HYDRALAZINE HCL 25 MG ORAL TABLET 1 tablet by mouth tid for hypertension 2013 HYDRALAZINE HCL 39042456882 No Longer Active Robbie Busby MD Active VIIBRYD 40 MG ORAL TABLET take 1 tab po qday for depression. 2014 VILAZODONE HCL 19215871550 No Longer Active Robbie Busby MD Active TERBINAFINE HCL 250 MG ORAL TABLET 1 tab po qday for foot infection TERBINAFINE HCL 77283234565 No Longer Active Robbie Busby MD Active GABAPENTIN 300 MG ORAL CAPSULE 1 po q hs for nerve pain GABAPENTIN 42640914894 Active Robbie Busby MD Active CHERATUSSIN AC 100-10 MG/5ML ORAL SOLUTION 7.5 mL PO q 4-6 hrs PRN cough 2014 GUAIFENESIN-CODEINE 07766434278 No Longer Active Robbie Busby MD Active AZITHROMYCIN 250 MG ORAL TABLET 2 tablets PO today---then, 1 tablet PO daily x 4 more days (and 1 optional refill) AZITHROMYCIN 67652843010 No Longer Active Robbie Busby MD Active NORVASC 10 MG ORAL TABLET 1 tablet by mouth daily AMLODIPINE BESYLATE 72041260533 No Longer Active Alex ALVAREZ Active ISOSORBIDE DINITRATE 30 MG ORAL TABLET Take one by mouth daily ISOSORBIDE DINITRATE 62892750872 No Longer Active Robbie Busby MD Active VIIBRYD 40 MG ORAL TABLET 1 TA B PO DAILY VILAZODONE HCL 08982041684 Active Robbie Busby MD Active ZITHROMAX 250 MG ORAL TABLET 2 po today, then 1 po q days 2-5 AZITHROMYCIN 75321128968 No Longer Active Robbie Busby MD Active DOXAZOSIN MESYLATE 4 MG ORAL TABLET Take one by mouth daily DOXAZOSIN MESYLATE 50160759788 Active Robbie Busby MD Active VENLAFAXINE HCL ER 150 MG ORAL TABLET EXTENDED RELEASE 24 HOUR Take one by mouth daily VENLAFAXINE HCL 91404652713 Active Robbie Busby MD Active LIPITOR 40 MG ORAL TABLET Take one by mouth daily ATORVASTATIN CALCIUM 03050772991 Active Robbie Busby MD Active ISOSORBIDE DINITRATE 30 MG ORAL TABLET Take one by mouth daily ISOSORBIDE DINITRATE 30 MG ORAL TABLET 257308 ISOSORBIDE DINITRATE Inactive NORVASC 10 MG ORAL TABLET 1 tablet by mouth daily NORVASC 10 MG ORAL TABLET 490029 AMLODIPINE BESYLATE Inactive AZITHROMYCIN 250 MG ORAL TABLET 2 tablets PO today---then, 1 tablet PO daily x 4 more days (and 1 optional refill) AZITHROMYCIN 250 MG ORAL TABLET 090728 AZITHROMYCIN Inactive CHERATUSSIN AC 100-10 MG/5ML ORAL SOLUTION 7.5 mL PO q 4-6 hrs PRN cough 2014 CHERATUSSIN AC 100-10 MG/5ML ORAL SOLUTION 709724 GUAIFENESIN-CODEINE Inactive VIIBRYD 40 MG ORAL TABLET take 1 tab po qday for depression. 2014 VIIBRYD 40 MG ORAL TABLET VILAZODONE HCL Inactive HYDRALAZINE HCL 25 MG ORAL TABLET 1 tablet by mouth tid for hypertension 2013 HYDRALAZINE HCL 25 MG ORAL TABLET 374909 HYDRALAZINE HCL Inactive SPIRONOLACTONE 50 MG ORAL TABLET 1 tablet by mouth twice a day SPIRONOLACTONE 50 MG ORAL TABLET 372113 SPIRONOLACTONE Inactive FENOFIBRATE 145 MG ORAL TABLET Take one by mouth daily FENOFIBRATE 145 MG ORAL TABLET 254360 FENOFIBRATE Inactive PROTONIX 40 MG INTRAVENOUS SOLUTION RECONSTITUTED 1 po qday for acid reflux PROTONIX 40 MG INTRAVENOUS SOLUTION RECONSTITUTED 676293 PANTOPRAZOLE SODIUM Inactive CEFDINIR 300 MG ORAL CAPSULE Take 1 cap po bid x 10 days CEFDINIR 300 MG ORAL CAPSULE 001339 CEFDINIR Inactive PREDNISONE 20 MG ORAL TABLET 1 tablet twice daily for 2 days, then 1 tablet once daily for 2 days PREDNISONE 20 MG ORAL TABLET 468596 PREDNISONE Inactive NYSTATIN 880682 UNIT/ML MOUTH/THROAT SUSPENSION 5mL po QID x 10 days NYSTATIN 254724 UNIT/ML MOUTH/THROAT SUSPENSION 883777 NYSTATIN Inactive BETADINE 10 % EXTERNAL SOLUTION 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 07/29 BETADINE 10 % EXTERNAL SOLUTION 4218909 POVIDONE-IODINE Inactive TRILEPTAL 150 MG ORAL TABLET 1 TAB PO Q HS TRILEPTAL 150 MG ORAL TABLET 763525 OXCARBAZEPINE Inactive LAMISIL 125 MG ORAL PACKET 1 TAB PO DAILY LAMISIL 125 MG ORAL PACKET TERBINAFINE HCL Inactive HYDROCHLOROTHIAZIDE TABLET Take one by mouth daily HYDROCHLOROTHIAZIDE TABLET HYDROCHLOROTHIAZIDE TABS Inactive HYDROCODONE-ACETAMINOPHEN 5-325 MG ORAL TABLET 1 tab by mouth BID prn back pain HYDROCODONE-ACETAMINOPHEN 5-325 MG ORAL TABLET 984970 HYDROCODONE-ACETAMINOPHEN Inactive HYDRALAZINE HCL 50 MG ORAL TABLET TWO BY MOUTH THREE TIMES DAILY HYDRALAZINE HCL 50 MG ORAL TABLET 944748 HYDRALAZINE HCL Inactive LEVAQUIN 500 MG ORAL TABLET 1 tablet by mouth daily for 7 days LEVAQUIN 500 MG ORAL TABLET 519554 LEVOFLOXACIN Inactive SPIRONOLACTONE 25 MG ORAL TABLET 4 tablets by mouth daily SPIRONOLACTONE 25 MG ORAL TABLET 553169 SPIRONOLACTONE Inactive MECLIZINE HCL 25 MG ORAL TABLET one 4 times a day as needed for dizziness MECLIZINE HCL 25 MG ORAL TABLET 553383 MECLIZINE HCL Inactive CLONIDINE HCL 0.2 MG ORAL TABLET 1 TAB BY MOUTH EVERY 8 HOURS CLONIDINE HCL 0.2 MG ORAL TABLET 226203 CLONIDINE HCL Inactive CYCLOBENZAPRINE HCL 10 MG ORAL TABLET 1 tablet by mouth three times daily as needed for muscle spasm/pain for 10 days CYCLOBENZAPRINE HCL 10 MG ORAL TABLET 360665 CYCLOBENZAPRINE HCL Inactive VITAMIN D3 42603 UNIT ORAL CAPSULE 2 CAPS PO WEEKLY VITAMIN D3 93515 UNIT ORAL CAPSULE CHOLECALCIFEROL Inactive FIORICET 50-300-40 MG ORAL CAPSULE take 1 tab po qday prn migraines. FIORICET 50-300-40 MG ORAL CAPSULE 589060 BUTALBITAL-APAP- CAFFEINE Inactive FLONASE 50 MCG/ACT NASAL SUSPENSION 1 spray each nostril twice daily for allergies and runny nose FLONASE 50 MCG/ACT NASAL SUSPENSION 2534919 FLUTICASONE PROPIONATE Inactive LORATADINE 10 MG ORAL TABLET 1 tablet by mouth daily for congestion and allergies. LORATADINE 10 MG ORAL TABLET 432236 LORATADINE Inactive NITROSTAT 0.4 MG SUBLINGUAL TABLET SUBLINGUAL PRN NITROSTAT 0.4 MG SUBLINGUAL TABLET SUBLINGUAL 513718 NITROGLYCERIN Inactive GUAIFENESIN ER 600 MG ORAL TABLET EXTENDED RELEASE 12 HOUR 1 tab po q am 2016 GUAIFENESIN ER 600 MG ORAL TABLET EXTENDED RELEASE 12 HOUR GUAIFENESIN Inactive CYCLOBENZAPRINE HCL 10 MG ORAL TABLET 1 po TID PRN muscle spasm/pain for 10 days CYCLOBENZAPRINE HCL 10 MG ORAL TABLET 336551 CYCLOBENZAPRINE HCL Inactive TOPIRAMATE 50 MG ORAL TABLET take 1 tab po BID for migraines. TOPIRAMATE 50 MG ORAL TABLET 188047 TOPIRAMATE Inactive PREDNISONE 20 MG ORAL TABLET two tabs by mouth today, then one tab by mouth days two and three PREDNISONE 20 MG ORAL TABLET 190812 PREDNISONE Inactive TOPROL XL 200 MG ORAL TABLET EXTENDED RELEASE 24 HOUR Take one by mouth daily TOPROL XL 200 MG ORAL TABLET EXTENDED RELEASE 24 HOUR METOPROLOL SUCCINATE Inactive CYCLOBENZAPRINE HCL 10 MG ORAL TABLET 1 tablet by mouth three times daily as needed for muscle spasm/pain CYCLOBENZAPRINE HCL 10 MG ORAL TABLET 606770 CYCLOBENZAPRINE HCL Inactive TOPIRAMATE 50 MG ORAL TABLET 1 po BID for migraines TOPIRAMATE 50 MG ORAL TABLET 194285 TOPIRAMATE Inactive TEMAZEPAM 15 MG ORAL CAPSULE 1 TAB PO Q HS TEMAZEPAM 15 MG ORAL CAPSULE 750579 TEMAZEPAM Inactive IMDUR 60 MG ORAL TABLET EXTENDED RELEASE 24 HOUR take 1 tab po qday for blood pressure IMDUR 60 MG ORAL TABLET EXTENDED RELEASE 24 HOUR ISOSORBIDE MONONITRATE Inactive [id number]-9 0.3 MG/24HR TRANSDERMAL PATCH WEEKLY apply 2 patches q week for HTN [id number]-[id number]-9 0.3 MG/24HR TRANSDERMAL PATCH WEEKLY 989933 CLONIDINE HCL Inactive ZITHROMAX 250 MG ORAL TABLET 2 po today, then 1 po q days 2-5 ZITHROMAX 250 MG ORAL TABLET 057661 AZITHROMYCIN Inactive TERBINAFINE HCL 250 MG ORAL TABLET 1 tab po qday for foot infection TERBINAFINE HCL 250 MG ORAL TABLET 403908 TERBINAFINE HCL Inactive KEFLEX 500 MG ORAL CAPSULE 1 po TID x 10 days KEFLEX 500 MG ORAL CAPSULE 041727 CEPHALEXIN Inactive BACTRIM DS 800-160 MG ORAL TABLET 1 tab by mouth twice daily 2015 BACTRIM DS 800-160 MG ORAL TABLET 917332 TRIMETHOPRIM- SULFAMETHOXAZOLE Inactive PREDNISONE 20 MG ORAL TABLET take 3 tabs daily for 3 days, 2 tabs daily for 3 days, 1 tab daily for 3 days, 1/2 tab daily for 4 days PREDNISONE 20 MG ORAL TABLET 589512 PREDNISONE Inactive AZITHROMYCIN 250 MG ORAL TABLET 2 po qd x 1 day, then 1 po qd x 4 days 09/20 AZITHROMYCIN 250 MG ORAL TABLET 234671 AZITHROMYCIN Inactive SINGULAIR 10 MG ORAL TABLET 1 po qday for allergies. SINGULAIR 10 MG ORAL TABLET 495876 MONTELUKAST SODIUM Inactive Advance Directives Directive Description [...] AUTO - Chemistry sodium, serum 142 mmol/L 689-166 0044/07/17 carbon dioxide, venous blood 28.2 mmol/L 21.0-32.0 [...] Panel - Chemistry sodium, serum 141 mmol/L 474-070 2346/02/13 carbon dioxide, venous blood 23.9 mmol/L 21.0-32.0 [...] 6.9 % 4.3-6.0 sodium, serum 139 mmol/L 834-883 3009/01/04 potassium, serum 3.9 mmol/L 3.5-5.2 chloride, serum [...] 1.80 ng/mL 0.00-4.00 Lab Report: VITAMIN D, 25-HYDROXY/87899 - Chemistry vitamin D 25-hydroxy, serum 25 ng/mL 30-100 Encounters Code Encounter Date Provider Facility CPT-12087 Level 3 Est. Patient 16:04:17 CDT Robbie Busby MD [facility] CPT-73287 Level 4 Est. Patient 09:50:01 GLOBAL CHIEF EXPERIENCE OFFICER Robbie Busby MD [facility] CPT-36571 Level 4 Est. Patient 09:42:08 GLOBAL CHIEF EXPERIENCE OFFICER Robbie Busby MD [facility] CPT-99650 Level 4 Est. Patient 13:07:39 GLOBAL CHIEF EXPERIENCE OFFICER Robbie Busby MD [facility] CPT-75416 Level 4 Est. Patient 15:23:44 GLOBAL CHIEF EXPERIENCE OFFICER Desmond Diaz DO [facility] CPT-44241 Level 3 Est. Patient 15:40:49 CDT Robbie Busby MD [facility] CPT-21329 Level 4 Est. Patient 15:18:19 CDT Robbie Busby MD [facility] CPT-79672 Level 3 Est. Patient 09:00:37 CDT Rober Rodolfoneha [facility] CPT-95574 Level 3 Est. Patient 16:07:10 CDT Robbie Busby MD [facility] CPT-88123 Level 4 Est. Patient 11:56:16 CDT Erin Miguelzane [facility] CPT-99388 Level 3 Est. Patient 17:48:02 CDT Robbie Busby MD [facility] CPT-48646 Level 4 Est. Patient 12:00:49 GLOBAL CHIEF EXPERIENCE OFFICER Rober Rodríguez [facility] CPT-64969 Level 3 Est. Patient 09:16:37 CDT Robbie Busby MD [facility] CPT-18035 Level 3 Est. Patient 19:38:43 CDT Robbie Busby MD [facility] CPT-46501 Level 3 Est. Patient 11:53:38 CDT Robbie Busby MD [facility] CPT-40718 Level 4 Est. Patient 12:52:22 CDT Rober Rodríguez [facility] CPT-29154 Level 4 Est. Patient 22:55:17 CDT Robbie Busby MD [facility] CPT-93690 Level 3 Est. Patient 12:38:24 CDT Desmond Diaz DO [facility] CPT-26991 Level 4 Est. Patient 11:25:03 GLOBAL CHIEF EXPERIENCE OFFICER Robbie Busby MD [facility] CPT-78362 Level 4 Est. Patient 14:50:10 CDT Robbie Busby MD [facility] CPT-19732 Level 4 Est. Patient 23:30:43 CDT Robbie Busby MD [facility] CPT-24646 Level 4 Est. Patient 10:30:43 CDT Robbie Busby MD [facility] CPT-84313 Level 3 Est. Patient 17:08:[address] [facility] CPT-01882 Level 4 Est. Patient 17:51:38 CDT Robbie Busby MD [facility] CPT-23386 Level 4 Est. Patient 14:00:21 CDT Robbie Busby MD [facility] CPT-67624 Level 4 Est. Patient 12:46:48 CDT Robbie Busby MD [facility] CPT-50966 Level 4 Est. Patient 13:34:33 CDT Robbie Busby MD [facility] CPT-56522 Level 4 Est. Patient 16:58:28 CDT Robbie Busby MD [facility] CPT-07981 Level 3 Est. Patient 19:36:53 CDT Alex Shaw [facility] CPT-09327 Level 3 Est. Patient 12:58:15 CDT Robbie Busby MD [facility] Procedures Code Procedure Name Date Entry Date Standard Description CPT-J1071 Depo Testosterone 200mg 09:01:06 CDT CPT-26202 Abx/Therapy Injection 09:01:06 CDT CPT-J1100 Decadron 8mg (Dexamethasone) 16:04:17 CDT CPT-J1040 Depo Medrol 80 mg (Methyl Prednisolone Acetate) 16:04: 17 CDT CPT-J1071 Depo Testosterone 200mg 08:56:46 CDT CPT-27260 Abx/Therapy Injection 08:56:45 CDT CPT-J1071 Depo Testosterone 200mg 08:26:27 CDT CPT-44477 Abx/Therapy Injection 08:26:27 CDT CPT-J1071 Depo Testosterone 200mg 10:27:10 CDT CPT-44407 Abx/Therapy Injection 10:27:10 CDT CPT-J1071 Depo Testosterone 200mg 16:10:29 GLOBAL CHIEF EXPERIENCE OFFICER CPT-61664 Abx/Therapy Injection 16:10:29 GLOBAL CHIEF EXPERIENCE OFFICER CPT-J1071 Depo Testosterone 200mg 16:13:47 GLOBAL CHIEF EXPERIENCE OFFICER CPT-97775 Abx/Therapy Injection 16:13:46 GLOBAL CHIEF EXPERIENCE OFFICER CPT-J1071 Depo Testosterone 200mg 15:33:58 GLOBAL CHIEF EXPERIENCE OFFICER CPT-41055 Abx/Therapy Injection 15:33:58 GLOBAL CHIEF EXPERIENCE OFFICER CPT-J1071 Depo Testosterone 200mg 09:38:36 [facility] CPT-76129 Abx/Therapy Injection 09:38:36 [facility] CPT-J1071 Depo Testosterone 200mg 10:22:56 GLOBAL CHIEF EXPERIENCE OFFICER CPT-65535 Abx/Therapy Injection 10:22:56 GLOBAL CHIEF EXPERIENCE OFFICER CPT-J1071 Depo Testosterone 200mg 15:40:23 CDT CPT-99633 Abx/Therapy Injection 15:40:23 CDT CPT-J1071 Depo Testosterone 200mg 14:20:43 CDT CPT-50994 Abx/Therapy Injection 14:20:43 CDT CPT-J1071 Depo Testosterone 200mg 14:17:22 CDT CPT-36137 Abx/Therapy Injection 14:17:22 CDT CPT-J1071 Depo Testosterone 200mg 09:03:53 CDT CPT-90502 Abx/Therapy Injection 09:03:53 CDT CPT-G0439 [facility] Annual Wellness Exam 16:47:44 CDT CPT-J1071 Depo Testosterone 200mg 09:06:28 CDT CPT-76381 Abx/Therapy Injection 09:06:28 CDT CPT-J1071 Depo Testosterone 200mg 08:30:01 CDT CPT-55130 Abx/Therapy Injection 08:30:01 CDT CPT-J1071 Depo Testosterone 200mg 08:24:00 CDT CPT-37976 Abx/Therapy Injection 08:24:00 CDT CPT-13919 Venipuncture Draw Fee 14:39:06 CDT CPT-43580 Ribs unilateral 2V - XRAY USE ONLY 12:10:11 CDT CPT-90856 First Vx - Ix admin for Medicare patients 16:32:53 CDT CPT-11510 Boostrix Intramuscular Suspension 5-2.5-18.5 16:32:53 CDT CPT-95679 TB Skin Test 11:42:28 CDT CPT-57563 Tdap 7yrs or > 11:42:28 CDT CPT-J0696 Rocephin 1000 mg (Ceftriaxone) 17:43:43 GLOBAL CHIEF EXPERIENCE OFFICER CPT-J1040 Depo Medrol 80 mg (Methyl Prednisolone Acetate) 17:43: 43 GLOBAL CHIEF EXPERIENCE OFFICER CPT-J1100 Decadron 8mg (Dexamethasone) 17:43:42 GLOBAL CHIEF EXPERIENCE OFFICER CPT-63771 Abx/Therapy Injection 17:43:42 GLOBAL CHIEF EXPERIENCE OFFICER CPT-67996 Abx/Therapy Injection 17:43:42 GLOBAL CHIEF EXPERIENCE OFFICER CPT-J1040 Depo Medrol 80 mg (Methyl Prednisolone Acetate) 09:43: 34 GLOBAL CHIEF EXPERIENCE OFFICER CPT-J1100 Decadron 8mg (Dexamethasone) 09:43:34 GLOBAL CHIEF EXPERIENCE OFFICER CPT-J0696 Rocephin 1gm Inj Solr 09:43:34 GLOBAL CHIEF 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
--- OUTSIDE RECORDS SUMMARY | 2018-04-18 11:05 | XMS REPORT | Clinical Summary ---
Author Author Admin, [facility] Organization [facility] Address Unknown Phone Unavailable Allergies, Adverse Reactions, [...] cause unspecified Onychomycosis, toenails 110.1 Active Robbie uBsby MD Dermatophytosis of nail Dizziness 780.4 Active [...] Status Provider Patient Instruction GUAIFENESIN 600 MG [id number] 1 tab po q am GUAIFENESIN 54154802657 Active Jillina Frazell CATERPILLAR DRIVER Active FLUTICASONE PROPIONATE 50 MCG/ACT SUSP 2 sprays per nostril bid for 1 week, then 1 spray bid FLUTICASONE PROPIONATE 47104368066 Active Jillina Frazell CATERPILLAR DRIVER Active HYDRALAZINE HCL 25 MG ORAL TABS Take 1 tab BID. HYDRALAZINE HCL 63673043673 Active Jillina Frazell CATERPILLAR DRIVER Active VITAMIN D3 51395 UNIT ORAL TABS 2 po weekly CHOLECALCIFEROL 07009507756 Active JONATHAN Moncada Active OXYCODONE HCL ER 10 MG ORAL T12A 1 tab po 3 times qd. OXYCODONE HCL 16851294340 Active Robbie Busby MD Active NITROSTAT 0.4 MG SUBL PRN NITROGLYCERIN 49464915094 No Longer Active Robbie Busby MD Active LORATADINE 10 MG TABS 1 tablet by mouth daily for congestion and allergies. LORATADINE 95676313429 No Longer Active Robbie Busby MD Active FLONASE 50 MCG/ACT SUSP 1 spray each nostril twice daily for allergies and runny nose FLUTICASONE PROPIONATE 31516062786 No Longer Active Robbie Busby MD Active FIORICET 50-300-40 MG ORAL CAPS take 1 tab po qday prn migraines. [id number] 68821294270 No Longer Active Robbie Busby MD Active VITAMIN D3 32140 UNIT CAPS 2 CAPS PO WEEKLY CHOLECALCIFEROL 71454891709 No Longer Active Robbie Busby MD Active CYCLOBENZAPRINE HCL 10 MG TABS 1 tablet by mouth three times daily as needed for muscle spasm/pain for 10 days CYCLOBENZAPRINE HCL 66484462647 No Longer Active Robbie Busby MD Active PREDNISONE 20 MG TAB take 3 tabs daily for 3 days, 2 tabs daily for 3 days, 1 tab daily for 3 days, 1/2 tab daily for 4 days PREDNISONE 25641016436 No Longer Active Erin Garsia APRN Active CLONIDINE HCL 0.2 MG ORAL TABS 1 TAB BY MOUTH EVERY 8 HOURS 12/29 CLONIDINE HCL 65545609807 No Longer Active Erin Garsia APRN Active MECLIZINE HCL 25 MG TAB one 4 times a day as needed for dizziness MECLIZINE HCL 43235327685 No Longer Active Erin Garsia APRN Active SPIRONOLACTONE 25 MG TAB 4 tablets by mouth daily SPIRONOLACTONE 85036530510 No Longer Active Erin Garsia APRN Active LEVAQUIN 500 MG TAB 1 tablet by mouth daily for 7 days LEVOFLOXACIN 44485202928 No Longer Active Erin Garsia APRN Active BACTRIM DS 800-160 MG TAB 1 tab by mouth twice daily TRIMETHOPRIM-SULFAMETHOXAZOLE 44000335142 No Longer Active Robbie Busby MD Active HYDRALAZINE HCL 50 MG ORAL TABS TWO BY MOUTH THREE TIMES DAILY HYDRALAZINE HCL 72872571280 No Longer Active Jillina Frazell CATERPILLAR DRIVER Active HYDROCODONE-ACETAMINOPHEN 5-325 MG TABS 1 tab by mouth BID prn back pain 2013 HYDROCODONE-ACETAMINOPHEN 98110586152 No Longer Active Jillina Frazell CATERPILLAR DRIVER Active HYDROCHLOROTHIAZIDE TABS Take one by mouth daily HYDROCHLOROTHIAZIDE TABS 43504737968 No Longer Active Jillina Frazell CATERPILLAR DRIVER Active LAMISIL 125 MG ORAL PACK 1 TAB PO DAILY TERBINAFINE HCL 43085128710 No Longer Active Jillina Frazell CATERPILLAR DRIVER Active TRILEPTAL 150 MG ORAL TABS 1 TAB PO Q HS OXCARBAZEPINE 58728992623 No Longer Active Jillina Frazell CATERPILLAR DRIVER Active BETADINE 10 % EXT SOLN 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 POVIDONE-IODINE 68116715522 No Longer Active Jillina Zulemal CATERPILLAR DRIVER Active NYSTATIN 650846 UNIT/ML M/T SUSP 5mL po QID x 10 days NYSTATIN 02619703947 No Longer Active Erin Garsia APRN Active PREDNISONE 20 MG TAB 1 tablet twice daily for 2 days, then 1 tablet once daily for 2 days PREDNISONE 47672602715 No Longer Active Robbie Busby MD Active CEFDINIR 300 MG ORAL CAPS Take 1 cap po bid x 10 days CEFDINIR 74576044284 No Longer Active Robbie Busby MD Active AMLODIPINE BESYLATE 10 MG TABS 1 tablet by mouth daily AMLODIPINE BESYLATE 15225788888 Active Robbie Busby MD Active CARVEDILOL 25 MG TABS 1 & 1/2 TAB po BID CARVEDILOL 30419237099 Active Robbie Busby MD Active NEXIUM 40 MG CPDR 1 cap by mouth daily ESOMEPRAZOLE MAGNESIUM 19835710322 Active Robbie Busby MD Active PROTONIX 40 MG SOLR 1 po qday for acid reflux PANTOPRAZOLE SODIUM 85942882626 No Longer Active Gali Raida Active KEFLEX 500 MG CAP 1 po TID x 10 days CEPHALEXIN 74671737929 No Longer Active Robbie Busby MD Active TOPIRAMATE 50 MG ORAL TABS take 1 tab po BID for migraines. TOPIRAMATE 85195701521 Active Robbie Busby MD Active TEMAZEPAM 15 MG ORAL CAPS 1 TAB PO Q HS TEMAZEPAM 36257525372 Active Robbie Busby MD Active ALPRAZOLAM 2 MG ORAL TABS 1 TAB PO BID ALPRAZOLAM 95234681681 Active Robbie Busby MD Active FENOFIBRATE 145 MG TABS Take one by mouth daily FENOFIBRATE 58310189875 No Longer Active Robbie Busby MD Active SPIRONOLACTONE 50 MG TABS 1 tablet by mouth twice a day SPIRONOLACTONE 30807760427 No Longer Active Robbie Busby MD Active HYDRALAZINE HCL 25 MG TABS 1 tablet by mouth tid for hypertension HYDRALAZINE HCL 44267262113 No Longer Active Robbie Busby MD Active VIIBRYD 40 MG TABS take 1 tab po qday for depression. VILAZODONE HCL 51596083864 No Longer Active Robbie Busby MD Active TERBINAFINE HCL 250 MG TABS 1 tab po qday for foot infection 2014 TERBINAFINE HCL 11610983471 No Longer Active Robbie Busby MD Active GABAPENTIN 300 MG CAPS 1 po q hs for nerve pain GABAPENTIN 89602554112 Active Robbie Busby MD Active CHERATUSSIN AC 100-10 MG/5ML ORAL SOLN 7.5 mL PO q 4-6 hrs PRN cough GUAIFENESIN-CODEINE 21376137385 No Longer Active Robbie uBsby MD Active AZITHROMYCIN 250 MG ORAL TABS 2 tablets PO today---then, 1 tablet PO daily x 4 more days (and 1 optional refill) AZITHROMYCIN 78485360460 No Longer Active Robbie Busby MD Active NORVASC 10 MG TAB 1 tablet by mouth daily AMLODIPINE BESYLATE 07476116553 No Longer Active Alex ALVAREZ Active IMDUR 60 MG TAB CR take 1 tab po qday for blood pressure ISOSORBIDE MONONITRATE Active Robbie Busby MD Active ISOSORBIDE DINITRATE 30 MG TABS Take one by mouth daily ISOSORBIDE DINITRATE 13877401104 No Longer Active Robbie Busby MD Active VIIBRYD 40 MG TABS 1 TA B PO DAILY VILAZODONE HCL 09709438380 Active Robbie Busby MD Active ZITHROMAX 250 MG TAB 2 po today, then 1 po q days 2-5 AZITHROMYCIN 88806130680 No Longer Active Robbie Busby MD Active [id number]-[id number]-0 0.3 MG/24HR PTWK apply 2 patches q week for HTN CLONIDINE HCL 89749010159 Active Robbie Busby MD Active DOXAZOSIN MESYLATE 4 MG TABS Take one by mouth daily DOXAZOSIN MESYLATE 51412745452 Active Robbie Busby MD Active TOPROL XL 200 MG [id number] Take one by mouth daily METOPROLOL SUCCINATE 48746368848 Active Robbie Busby MD Active VENLAFAXINE HCL ER 150 MG [id number] Take one by mouth daily VENLAFAXINE HCL 71774607075 Active Robbie Busby MD Active LIPITOR 40 MG TABS Take one by mouth daily ATORVASTATIN CALCIUM 09359785838 Active Robbie Busby MD Active ISOSORBIDE DINITRATE 30 MG TABS Take one by mouth daily ISOSORBIDE DINITRATE 30 MG TABS 105236 ISOSORBIDE DINITRATE Inactive NORVASC 10 MG TAB 1 tablet by mouth daily NORVASC 10 MG TAB 333673 AMLODIPINE BESYLATE Inactive AZITHROMYCIN 250 MG ORAL TABS 2 tablets PO today---then, 1 tablet PO daily x 4 more days (and 1 optional refill) AZITHROMYCIN 250 MG ORAL TABS 2134601 AZITHROMYCIN Inactive CHERATUSSIN AC 100-10 MG/5ML ORAL SOLN 7.5 mL PO q 4-6 hrs PRN cough CHERATUSSIN AC 100-10 MG/5ML ORAL SOLN 443248 GUAIFENESIN- CODEINE Inactive VIIBRYD 40 MG TABS take 1 tab po qday for depression. VIIBRYD 40 MG TABS VILAZODONE HCL Inactive HYDRALAZINE HCL 25 MG TABS 1 tablet by mouth tid for hypertension HYDRALAZINE HCL 25 MG TABS 331437 HYDRALAZINE HCL Inactive SPIRONOLACTONE 50 MG TABS 1 tablet by mouth twice a day SPIRONOLACTONE 50 MG TABS 422239 SPIRONOLACTONE Inactive FENOFIBRATE 145 MG TABS Take one by mouth daily FENOFIBRATE 145 MG TABS 411933 FENOFIBRATE Inactive PROTONIX 40 MG SOLR 1 po qday for acid reflux PROTONIX 40 MG SOLR 679729 PANTOPRAZOLE SODIUM Inactive CEFDINIR 300 MG ORAL CAPS Take 1 cap po bid x 10 days CEFDINIR 300 MG ORAL CAPS 132386 CEFDINIR Inactive PREDNISONE 20 MG TAB 1 tablet twice daily for 2 days, then 1 tablet once daily for 2 days PREDNISONE 20 MG TAB 232375 PREDNISONE Inactive NYSTATIN 035565 UNIT/ML M/T SUSP 5mL po QID x 10 days NYSTATIN 628850 UNIT/ML M/T SUSP 517034 NYSTATIN Inactive BETADINE 10 % EXT SOLN 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 BETADINE 10 % EXT SOLN 0881363 POVIDONE-IODINE Inactive TRILEPTAL 150 MG ORAL TABS 1 TAB PO Q HS TRILEPTAL 150 MG ORAL TABS 596139 OXCARBAZEPINE Inactive LAMISIL 125 MG ORAL PACK 1 TAB PO DAILY LAMISIL 125 MG ORAL PACK TERBINAFINE HCL Inactive HYDROCHLOROTHIAZIDE TABS Take one by mouth daily HYDROCHLOROTHIAZIDE TABS HYDROCHLOROTHIAZIDE TABS Inactive HYDROCODONE-ACETAMINOPHEN 5-325 MG TABS 1 tab by mouth BID prn back pain 2013 HYDROCODONE-ACETAMINOPHEN 5-325 MG TABS 345158 HYDROCODONE -ACETAMINOPHEN Inactive HYDRALAZINE HCL 50 MG ORAL TABS TWO BY MOUTH THREE TIMES DAILY HYDRALAZINE HCL 50 MG ORAL TABS 042821 HYDRALAZINE HCL Inactive LEVAQUIN 500 MG TAB 1 tablet by mouth daily for 7 days LEVAQUIN 500 MG TAB 361958 LEVOFLOXACIN Inactive SPIRONOLACTONE 25 MG TAB 4 tablets by mouth daily SPIRONOLACTONE 25 MG TAB 927219 SPIRONOLACTONE Inactive MECLIZINE HCL 25 MG TAB one 4 times a day as needed for dizziness MECLIZINE HCL 25 MG TAB 094902 MECLIZINE HCL Inactive CLONIDINE HCL 0.2 MG ORAL TABS 1 TAB BY MOUTH EVERY 8 HOURS 12/29 CLONIDINE HCL 0.2 MG ORAL TABS 507564 CLONIDINE HCL Inactive CYCLOBENZAPRINE HCL 10 MG TABS 1 tablet by mouth three times daily as needed for muscle spasm/pain for 10 days CYCLOBENZAPRINE HCL 10 MG TABS 247237 CYCLOBENZAPRINE HCL Inactive VITAMIN D3 66818 UNIT CAPS 2 CAPS PO WEEKLY VITAMIN D3 16364 UNIT CAPS CHOLECALCIFEROL Inactive FIORICET 50-300-40 MG ORAL CAPS take 1 tab po qday prn migraines. FIORICET 50-300-40 MG ORAL CAPS 190099 [id number] Inactive FLONASE 50 MCG/ACT SUSP 1 spray each nostril twice daily for allergies and runny nose FLONASE 50 MCG/ACT SUSP 2634435 FLUTICASONE PROPIONATE Inactive LORATADINE 10 MG TABS 1 tablet by mouth daily for congestion and allergies. LORATADINE 10 MG TABS 017577 LORATADINE Inactive NITROSTAT 0.4 MG SUBL PRN NITROSTAT 0.4 MG SUBL 235929 NITROGLYCERIN Inactive ZITHROMAX 250 MG TAB 2 po today, then 1 po q days 2-5 ZITHROMAX 250 MG TAB 1561392 AZITHROMYCIN Inactive TERBINAFINE HCL 250 MG TABS 1 tab po qday for foot infection 2014 TERBINAFINE HCL 250 MG TABS 897085 TERBINAFINE HCL Inactive KEFLEX 500 MG CAP 1 po TID x 10 days KEFLEX 500 MG CAP 009164 CEPHALEXIN Inactive BACTRIM DS 800-160 MG TAB 1 tab by mouth twice daily BACTRIM DS 800-160 MG TAB 087644 TRIMETHOPRIM-SULFAMETHOXAZOLE Inactive PREDNISONE 20 MG TAB take 3 tabs daily for 3 days, 2 tabs daily for 3 days, 1 tab daily for 3 days, 1/2 tab daily for 4 days PREDNISONE 20 MG TAB 765124 PREDNISONE Inactive Advance Directives Directive Description Start [...] % 11.6-14.8 platelet count 229 10^3/MM^3 10*3/mm3 857-165 0645/09/06 hemoglobin, blood 14.4 g/dL 13.5-17.5 erythrocyte (RBC) count 4.72 10^6/MM^3 10*6/mm3 4.69-6.13 leukocyte count, blood 9.7 10^3/MM^3 10*3/mm3 4.6-10.2 Lab Report: CBC W/DIFF, Comp. Metabolic Panel, CKI, UADIP W/MICRO, AUTO - Chemistry sodium, serum 142 mmol/L 385-595 7392/07/17 carbon dioxide, venous blood 28.2 mmol/L 21.0-32.0 [...] % 11.0-15.0 platelet count 185 THOUSAND/UL 10*3/mm3 912-473 2731/04/14 mean platelet volume 10.9 fL 7.5-12.5 Lab Report: LIPID PANEL, TSH/899, T4, FREE/866 - Chemistry cholesterol, serum 220 mg/dL 787-301 6049/04/14 HDL cholesterol, serum 30 mg/dL > OR=40 triglyceride, serum, fasting 466 mg/dL <150 LDL cholesterol, serum SEE NOTE mg/dL (calc) mg/dL <130 cholesterol/HDL ratio, serum 7.3 (calc) < OR=5.0 Lab Report: MICROALB/CREAT W/RATIO - Chemistry albumin/creatinine ratio, urine < 30 mg/g mg/g{creat} 0-29 Lab Report: MICROALB/CREAT W/RATIO - Lab microalbumin, urine 80 0-19 Lab Report: VITAMIN D, 25-HYDROXY/94346 - Chemistry vitamin D 25-hydroxy, serum 25 ng/mL 30-100 Office Visit: Confusion, dizziness after fall - Basic LDL target level 130 mg/dL Office Visit: Confusion, dizziness after fall - Chemistry HDL cholesterol, serum, target level 40 mg/dL triglyceride, target level 150 mg/dL cholesterol, target level 200 mg/dL Encounters Code Encounter Date Provider Facility CPT-16751 Level 3 Est. Patient 09:00:37 CDT Rober Rodríguez [facility] CPT-69860 Level 3 Est. Patient 16:07:10 CDT Robbie Busby MD [facility] CPT-53210 Level 4 Est. Patient 11:56:16 CDT Erin Garsia [facility] CPT-09137 Level 3 Est. Patient 17:48:02 CDT Robbie Busby MD [facility] CPT-77794 Level 4 Est. 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 Patient 09:16:37 CDT Robbie Busby MD [facility] CPT-38363 Level 3 Est. Patient 19:38:43 CDT Robbie Busby MD [facility] CPT-82356 Level 3 Est. Patient 11:53:38 CDT Robbie Busby MD [facility] CPT-33326 Level 4 Est. Patient 12:52:22 CDT Rober Rodríguez [facility] CPT-25777 Level 4 Est. Patient 22:55:17 CDT Robbie Busby MD [facility] CPT-27798 Level 3 Est. Patient 12:38:24 CDT Desmond Diaz DO [facility] CPT-76108 Level 4 Est. Patient 11:25:03 COMPUTER RECYCLING WORKER Robbie Busby MD [facility] CPT-40956 Level 4 Est. Patient 14:50:10 CDT Robbie Busby MD [facility] CPT-28292 Level 4 Est. Patient 23:30:43 CDT Robbie Busby MD [facility] CPT-25316 Level 4 Est. Patient 10:30:43 CDT Robbie Busby MD [facility] CPT-31581 Level 3 Est. Patient 17:08:12 CDT Alex ALVAREZ [facility] CPT-07775 Level 4 Est. Patient 17:51:38 CDT Robbie Busby MD [facility] CPT-22582 Level 4 Est. Patient 14:00:21 CDT Robbie Busby MD [facility] CPT-61043 Level 4 Est. Patient 12:46:48 CDT Robbie Busby MD [facility] CPT-29708 Level 4 Est. Patient 13:34:33 CDT Robbie Busby MD [facility] CPT-65555 Level 4 Est. Patient 16:58:28 CDT Robbie Busby MD [facility] CPT-24055 Level 3 Est. Patient 19:36:53 CDT Alex Shaw [facility] CPT-25095 Level 3 Est. Patient 12:58:15 CDT Robbie Busby MD [facility] Procedures Code Procedure Name Date Entry Date Standard Description CPT-83940 Venipuncture Draw Fee 14:39:06 CDT CPT-73136 Ribs unilateral 2V - XRAY USE ONLY 12:10:11 CDT CPT-61356 First Vx - Ix admin for Medicare patients 16:32:53 CDT CPT-25003 Boostrix Intramuscular Suspension 5-2.5-18.5 16:32:53 CDT CPT-85709 TB Skin Test 11:42:28 CDT CPT-78871 Tdap 7yrs or > 11:42:28 CDT CPT-J0696 Rocephin 1000 mg (Ceftriaxone) 17:43:43 COMPUTER RECYCLING WORKER CPT-J1040 Depo Medrol 80 mg (Methyl Prednisolone Acetate) 17:43: 43 COMPUTER RECYCLING WORKER CPT-J1100 Decadron 8mg (Dexamethasone) 17:43:42 COMPUTER RECYCLING WORKER CPT-10071 Abx/Therapy Injection 17:43:42 COMPUTER RECYCLING WORKER CPT-52249 Abx/Therapy Injection 17:43:42 COMPUTER RECYCLING WORKER CPT-J1040 Depo Medrol 80 mg (Methyl Prednisolone Acetate) 09:43: 34 COMPUTER RECYCLING WORKER CPT-J1100 Decadron 8mg (Dexamethasone) 09:43:34 COMPUTER RECYCLING WORKER CPT-J0696 Rocephin 1gm Inj Solr 09:43:34 COMPUTER RECYCLING WORKER CPT-37792 Wound Culture - LAB USE ONLY 14:00:21 CDT CPT-I/D I/D Abscess 09:16:37 CDT CPT-97397 Venipuncture Draw Fee 15:20:23 CDT CPT-71883 Microalbumin - LAB USE ONLY 16:02:19 CDT CPT-66572 CBC - LAB USE ONLY 16:02:19 CDT CPT-40031 Venipuncture Draw Fee 16:02:19 CDT CPT-G0438 Initial Annual Wellness Exam 08:10:28 CDT CPT-55460 Venipuncture Draw Fee 13:07:17 CDT CPT-G0008 Administration of Influenza Virus Vaccine 16:09:59 CDT CPT-74592 Fluzone Quadrivalent Intramuscular Suspension 0.5 ML 16: 09:59 CDT CPT-94125 Spec Collection and Handling Fee 15:05:50 CDT
--- OUTSIDE RECORDS SUMMARY | 2018-04-18 11:06 | XMS REPORT | Clinical Summary ---
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 OXYCODONE HCL 44611742130 Active Robbie Busby MD Active NITROSTAT 0.4 MG SUBL PRN NITROGLYCERIN 20822496828 No Longer Active Robbie Busby MD Active LORATADINE 10 MG TABS 1 tablet by mouth daily for congestion and allergies. LORATADINE 56786990033 No Longer Active Robbie Busby MD Active FLONASE 50 MCG/ACT SUSP 1 spray each nostril twice daily for allergies and runny nose FLUTICASONE PROPIONATE 81472751224 No Longer Active Robbie Busby MD Active FIORICET 50-300-40 MG ORAL CAPS take 1 tab po qday prn migraines. [id number] 76475659675 No Longer Active Robbie Busby MD Active VITAMIN D3 45675 UNIT CAPS 2 CAPS PO WEEKLY CHOLECALCIFEROL 88985815430 No Longer Active Robbie Busby MD Active CYCLOBENZAPRINE HCL 10 MG TABS 1 tablet by mouth three times daily as needed for muscle spasm/pain for 10 days CYCLOBENZAPRINE HCL 94176014562 No Longer Active Robbie Busby MD Active PREDNISONE 20 MG TAB take 3 tabs daily for 3 days, 2 tabs daily for 3 days, 1 tab daily for 3 days, 1/2 tab daily for 4 days PREDNISONE 83602651621 No Longer Active Erin Garsia APRN Active CLONIDINE HCL 0.2 MG ORAL TABS 1 TAB BY MOUTH EVERY 8 HOURS 12/29 CLONIDINE HCL 32283708856 No Longer Active Erin Garsia APRN Active MECLIZINE HCL 25 MG TAB one 4 times a day as needed for dizziness MECLIZINE HCL 36437757313 No Longer Active Erin Garsia APRN Active SPIRONOLACTONE 25 MG TAB 4 tablets by mouth daily SPIRONOLACTONE 63292717701 No Longer Active Erin Garsia APRN Active LEVAQUIN 500 MG TAB 1 tablet by mouth daily for 7 days LEVOFLOXACIN 02576215427 No Longer Active Erin Garsia APRN Active BACTRIM DS 800-160 MG TAB 1 tab by mouth twice daily TRIMETHOPRIM-SULFAMETHOXAZOLE 53306405735 No Longer Active Robbie Busby MD Active HYDRALAZINE HCL 50 MG ORAL TABS TWO BY MOUTH THREE TIMES DAILY HYDRALAZINE HCL 61124151706 No Longer Active Rober Rodríguez APRN Active HYDROCODONE-ACETAMINOPHEN 5-325 MG TABS 1 tab by mouth BID prn back pain 2013 HYDROCODONE-ACETAMINOPHEN 47837137295 No Longer Active Jillina Anne ARGUELLO Active HYDROCHLOROTHIAZIDE TABS Take one by mouth daily HYDROCHLOROTHIAZIDE TABS 18751971304 No Longer Active Jillina Frazell SCIENTIFIC PROCESS OPERATOR Active LAMISIL 125 MG ORAL PACK 1 TAB PO DAILY TERBINAFINE HCL 94236882831 No Longer Active Jillina Frazell SCIENTIFIC PROCESS OPERATOR Active TRILEPTAL 150 MG ORAL TABS 1 TAB PO Q HS OXCARBAZEPINE 47722101286 No Longer Active Jillina Frazell SCIENTIFIC PROCESS OPERATOR Active BETADINE 10 % EXT SOLN 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 POVIDONE-IODINE 74978921507 No Longer Active Jillina Frazell SCIENTIFIC PROCESS OPERATOR Active NYSTATIN 324408 UNIT/ML M/T SUSP 5mL po QID x 10 days NYSTATIN 74826278435 No Longer Active Erin Garsia APRN Active PREDNISONE 20 MG TAB 1 tablet twice daily for 2 days, then 1 tablet once daily for 2 days PREDNISONE 82610469649 No Longer Active Robbie Busby MD Active CEFDINIR 300 MG ORAL CAPS Take 1 cap po bid x 10 days CEFDINIR 82312054426 No Longer Active Robbie Busby MD Active AMLODIPINE BESYLATE 10 MG TABS 1 tablet by mouth daily AMLODIPINE BESYLATE 71716791196 Active Robbie Busby MD Active CARVEDILOL 25 MG TABS 1 & 1/2 TAB po BID CARVEDILOL 95813152574 Active Robbie Busby MD Active NEXIUM 40 MG CPDR 1 cap by mouth daily ESOMEPRAZOLE MAGNESIUM 20096200098 Active Robbie Busby MD Active PROTONIX 40 MG SOLR 1 po qday for acid reflux PANTOPRAZOLE SODIUM 76659275397 No Longer Active Gali Raida Active KEFLEX 500 MG CAP 1 po TID x 10 days CEPHALEXIN 57091063664 No Longer Active Robbie Busby MD Active TOPIRAMATE 50 MG ORAL TABS take 1 tab po BID for migraines. TOPIRAMATE 01011299461 Active Robbie Busby MD Active TEMAZEPAM 15 MG ORAL CAPS 1 TAB PO Q HS TEMAZEPAM 39154778301 Active Robbie Busby MD Active ALPRAZOLAM 2 MG ORAL TABS 1 TAB PO BID ALPRAZOLAM 72000492548 Active Robbie Busby MD Active FENOFIBRATE 145 MG TABS Take one by mouth daily FENOFIBRATE 43402617199 No Longer Active Robbie Busby MD Active SPIRONOLACTONE 50 MG TABS 1 tablet by mouth twice a day SPIRONOLACTONE 87237494120 No Longer Active Robbie Busby MD Active HYDRALAZINE HCL 25 MG TABS 1 tablet by mouth tid for hypertension HYDRALAZINE HCL 24765501683 No Longer Active Robbie Busby MD Active VIIBRYD 40 MG TABS take 1 tab po qday for depression. VILAZODONE HCL 61948426213 No Longer Active Robbie Busby MD Active TERBINAFINE HCL 250 MG TABS 1 tab po qday for foot infection 2014 TERBINAFINE HCL 99977527254 No Longer Active Robbie Busby MD Active GABAPENTIN 300 MG CAPS 1 po q hs for nerve pain GABAPENTIN 62014353038 Active Robbie Busby MD Active CHERATUSSIN AC 100-10 MG/5ML ORAL SOLN 7.5 mL PO q 4-6 hrs PRN cough GUAIFENESIN-CODEINE 27937259339 No Longer Active Robbie Busby MD Active AZITHROMYCIN 250 MG ORAL TABS 2 tablets PO today---then, 1 tablet PO daily x 4 more days (and 1 optional refill) AZITHROMYCIN 25086244661 No Longer Active Robbie Busby MD Active NORVASC 10 MG TAB 1 tablet by mouth daily AMLODIPINE BESYLATE 19655662993 No Longer Active Alex ALVAREZ Active IMDUR 60 MG TAB CR take 1 tab po qday for blood pressure ISOSORBIDE MONONITRATE Active Robbie Busby MD Active ISOSORBIDE DINITRATE 30 MG TABS Take one by mouth daily ISOSORBIDE DINITRATE 90934780240 No Longer Active Robbie Busby MD Active VIIBRYD 40 MG TABS 1 TA B PO DAILY VILAZODONE HCL 10409542600 Active Robbie Busby MD Active ZITHROMAX 250 MG TAB 2 po today, then 1 po q days 2-5 AZITHROMYCIN 20412777882 No Longer Active Robbie Busby MD Active [id number]-UTV-3 0.3 MG/24HR PTWK apply 2 patches q week for HTN CLONIDINE HCL 34453327818 Active Robbie Busby MD Active DOXAZOSIN MESYLATE 4 MG TABS Take one by mouth daily DOXAZOSIN MESYLATE 48709536439 Active Robbie Busby MD Active TOPROL XL 200 MG [id number]-MHQ Take one by mouth daily METOPROLOL SUCCINATE 96143399350 Active Robbie Busby MD Active VENLAFAXINE HCL ER 150 MG OI35H-MIK Take one by mouth daily VENLAFAXINE HCL 35193253615 Active Robbie Busby MD Active LIPITOR 40 MG TABS Take one by mouth daily ATORVASTATIN CALCIUM 09726381858 Active Robbie Busby MD Active ISOSORBIDE DINITRATE 30 MG TABS Take one by mouth daily ISOSORBIDE DINITRATE 30 MG TABS 038472 ISOSORBIDE DINITRATE Inactive NORVASC 10 MG TAB 1 tablet by mouth daily NORVASC 10 MG TAB 232534 AMLODIPINE BESYLATE Inactive AZITHROMYCIN 250 MG ORAL TABS 2 tablets PO today---then, 1 tablet PO daily x 4 more days (and 1 optional refill) AZITHROMYCIN 250 MG ORAL TABS 8551878 AZITHROMYCIN Inactive CHERATUSSIN AC 100-10 MG/5ML ORAL SOLN 7.5 mL PO q 4-6 hrs PRN cough CHERATUSSIN AC 100-10 MG/5ML ORAL SOLN 686626 GUAIFENESIN- CODEINE Inactive VIIBRYD 40 MG TABS take 1 tab po qday for depression. VIIBRYD 40 MG TABS VILAZODONE HCL Inactive HYDRALAZINE HCL 25 MG TABS 1 tablet by mouth tid for hypertension HYDRALAZINE HCL 25 MG TABS 533156 HYDRALAZINE HCL Inactive SPIRONOLACTONE 50 MG TABS 1 tablet by mouth twice a day SPIRONOLACTONE 50 MG TABS 550448 SPIRONOLACTONE Inactive FENOFIBRATE 145 MG TABS Take one by mouth daily FENOFIBRATE 145 MG TABS 474089 FENOFIBRATE Inactive PROTONIX 40 MG SOLR 1 po qday for acid reflux PROTONIX 40 MG SOLR 163179 PANTOPRAZOLE SODIUM Inactive CEFDINIR 300 MG ORAL CAPS Take 1 cap po bid x 10 days CEFDINIR 300 MG ORAL CAPS 547642 CEFDINIR Inactive PREDNISONE 20 MG TAB 1 tablet twice daily for 2 days, then 1 tablet once daily for 2 days PREDNISONE 20 MG TAB 021119 PREDNISONE Inactive NYSTATIN 605651 UNIT/ML M/T SUSP 5mL po QID x 10 days NYSTATIN 045470 UNIT/ML M/T SUSP 761704 NYSTATIN Inactive BETADINE 10 % EXT SOLN 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 BETADINE 10 % EXT SOLN 7718455 POVIDONE-IODINE Inactive TRILEPTAL 150 MG ORAL TABS 1 TAB PO Q HS TRILEPTAL 150 MG ORAL TABS 512886 OXCARBAZEPINE Inactive LAMISIL 125 MG ORAL PACK 1 TAB PO DAILY LAMISIL 125 MG ORAL PACK TERBINAFINE HCL Inactive HYDROCHLOROTHIAZIDE TABS Take one by mouth daily HYDROCHLOROTHIAZIDE TABS HYDROCHLOROTHIAZIDE TABS Inactive HYDROCODONE-ACETAMINOPHEN 5-325 MG TABS 1 tab by mouth BID prn back pain 2013 HYDROCODONE-ACETAMINOPHEN 5-325 MG TABS 967806 HYDROCODONE -ACETAMINOPHEN Inactive HYDRALAZINE HCL 50 MG ORAL TABS TWO BY MOUTH THREE TIMES DAILY HYDRALAZINE HCL 50 MG ORAL TABS 907765 HYDRALAZINE HCL Inactive LEVAQUIN 500 MG TAB 1 tablet by mouth daily for 7 days LEVAQUIN 500 MG TAB 866591 LEVOFLOXACIN Inactive SPIRONOLACTONE 25 MG TAB 4 tablets by mouth daily SPIRONOLACTONE 25 MG TAB 276097 SPIRONOLACTONE Inactive MECLIZINE HCL 25 MG TAB one 4 times a day as needed for dizziness MECLIZINE HCL 25 MG TAB 153696 MECLIZINE HCL Inactive CLONIDINE HCL 0.2 MG ORAL TABS 1 TAB BY MOUTH EVERY 8 HOURS 12/29 CLONIDINE HCL 0.2 MG ORAL TABS 811725 CLONIDINE HCL Inactive CYCLOBENZAPRINE HCL 10 MG TABS 1 tablet by mouth three times daily as needed for muscle spasm/pain for 10 days CYCLOBENZAPRINE HCL 10 MG TABS 862345 CYCLOBENZAPRINE HCL Inactive VITAMIN D3 64123 UNIT CAPS 2 CAPS PO WEEKLY VITAMIN D3 12719 UNIT CAPS CHOLECALCIFEROL Inactive FIORICET 50-300-40 MG ORAL CAPS take 1 tab po qday prn migraines. FIORICET 50-300-40 MG ORAL CAPS 251895 [id number] Inactive FLONASE 50 MCG/ACT SUSP 1 spray each nostril twice daily for allergies and runny nose FLONASE 50 MCG/ACT SUSP 9049256 FLUTICASONE PROPIONATE Inactive LORATADINE 10 MG TABS 1 tablet by mouth daily for congestion and allergies. LORATADINE 10 MG TABS 406012 LORATADINE Inactive NITROSTAT 0.4 MG SUBL PRN NITROSTAT 0.4 MG SUBL 379649 NITROGLYCERIN Inactive ZITHROMAX 250 MG TAB 2 po today, then 1 po q days 2-5 ZITHROMAX 250 MG TAB 8225407 AZITHROMYCIN Inactive TERBINAFINE HCL 250 MG TABS 1 tab po qday for foot infection 2014 TERBINAFINE HCL 250 MG TABS 937042 TERBINAFINE HCL Inactive KEFLEX 500 MG CAP 1 po TID x 10 days KEFLEX 500 MG CAP 324367 CEPHALEXIN Inactive BACTRIM DS 800-160 MG TAB 1 tab by mouth twice daily BACTRIM DS 800-160 MG TAB 252139 TRIMETHOPRIM-SULFAMETHOXAZOLE Inactive PREDNISONE 20 MG TAB take 3 tabs daily for 3 days, 2 tabs daily for 3 days, 1 tab daily for 3 days, 1/2 tab daily for 4 days PREDNISONE 20 MG TAB 034131 PREDNISONE Inactive Advance Directives Directive Description Start [...] % 11.0-15.0 platelet count 185 THOUSAND/UL 10*3/mm3 318-462 4606/04/14 mean platelet volume 10.9 fL 7.5-12.5 Lab Report: LIPID PANEL, TSH/899, T4, FREE/866 - Chemistry cholesterol, serum 220 mg/dL 907-821 7572/04/14 HDL cholesterol, serum 30 mg/dL > OR=40 [...] mg/dL Encounters Code Encounter Date Provider Facility CPT-12105 Level 3 Est. Patient 16:07:10 CDT Robbie Busby MD [facility] CPT-98445 Level 4 Est. Patient 11:56:16 CDT Erin Garsia [facility] CPT-63285 Level 3 Est. Patient 17:48:02 CDT Robbie Busby MD [facility] CPT-01747 Level 4 Est. Patient 12:00:49 DRAFTER PATENT Rober Rodríguez [facility] CPT-54289 Level 3 Est. Patient 09:16:37 CDT Robbie Busby MD [facility] CPT-90304 Level 3 Est. Patient 19:38:43 CDT Robbie Busby MD [facility] CPT-11685 Level 3 Est. Patient 11:53:38 CDT Robbie Busby MD [facility] CPT-79400 Level 4 Est. Patient 12:52:22 CDT Rober Rodríguez [facility] CPT-35004 Level 4 Est. Patient 22:55:17 CDT Robbie Busby MD [facility] CPT-82743 Level 3 Est. Patient 12:38:24 CDT Desmond Diaz DO [facility] CPT-46914 Level 4 Est. Patient 11:25:03 DRAFTER PATENT Robbie Busby MD [facility] CPT-64237 Level 4 Est. Patient 14:50:10 CDT Robbie Busby MD [facility] CPT-23400 Level 4 Est. Patient 23:30:43 CDT Robbie Busby MD [facility] CPT-80293 Level 4 Est. Patient 10:30:43 CDT Robbie Busby MD [facility] CPT-24502 Level 3 Est. Patient 17:08:12 CDT Alex Shaw [facility] CPT-42176 Level 4 Est. Patient 17:51:38 CDT Robbie Busby MD [facility] CPT-34647 Level 4 Est. Patient 14:00:21 CDT Robbie Busby MD [facility] CPT-56404 Level 4 Est. Patient 12:46:48 CDT Robbie Busby MD [facility] CPT-04834 Level 4 Est. Patient 13:34:33 CDT Robbie Busby MD [facility] CPT-25360 Level 4 Est. Patient 16:58:28 CDT Robbie Busby MD [facility] CPT-75479 Level 3 Est. Patient 19:36:53 CDT Alex ALVAREZ [facility] CPT-93351 Level 3 Est. Patient 12:58:15 CDT Robbie Busby MD [facility] Procedures Code Procedure Name Date Entry Date Standard Description CPT-16685 Venipuncture Draw Fee 14:39:06 CDT CPT-89606 Ribs unilateral 2V - XRAY USE ONLY 12:10:11 CDT CPT-56553 First Vx - Ix admin for Medicare patients 16:32:53 CDT CPT-01931 Boostrix Intramuscular Suspension 5-2.5-18.5 16:32:53 CDT CPT-04296 TB Skin Test 11:42:28 CDT CPT-07282 Tdap 7yrs or > 11:42:28 CDT CPT-J0696 Rocephin 1000 mg (Ceftriaxone) 17:43:43 DRAFTER PATENT CPT-J1040 Depo Medrol 80 mg (Methyl Prednisolone Acetate) 17:43: 43 DRAFTER PATENT CPT-J1100 Decadron 8mg (Dexamethasone) 17:43:42 DRAFTER PATENT CPT-04645 Abx/Therapy Injection 17:43:42 DRAFTER PATENT CPT-04442 Abx/Therapy Injection 17:43:42 DRAFTER PATENT CPT-J1040 Depo Medrol 80 mg (Methyl Prednisolone Acetate) 09:43: 34 DRAFTER PATENT CPT-J1100 Decadron 8mg (Dexamethasone) 09:43:34 DRAFTER PATENT CPT-J0696 Rocephin 1gm Inj Solr 09:43:34 DRAFTER PATENT CPT-73198 Wound Culture - LAB USE ONLY 14:00:21 CDT CPT-I/D I/D Abscess 09:16:37 CDT CPT-99048 Venipuncture Draw Fee 15:20:23 CDT CPT-88504 Microalbumin - LAB USE ONLY 16:02:19 CDT CPT-32085 CBC - LAB USE ONLY 16:02:19 CDT CPT-58383 Venipuncture Draw Fee 16:02:19 CDT CPT-G0438 Initial Annual Wellness Exam 08:10:28 CDT CPT-10204 Venipuncture Draw Fee 13:07:17 CDT CPT-G0008 Administration of Influenza Virus Vaccine 16:09:59 CDT CPT-97139 Fluzone Quadrivalent Intramuscular Suspension 0.5 ML 16: 09:59 CDT CPT-18752 Spec Collection and Handling Fee 15:05:50 CDT
--- OUTSIDE RECORDS SUMMARY | 2018-04-18 11:07 | XMS REPORT | Clinical Summary ---
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 Desmond Diaz DO Other malignant secondary hypertension Tachycardia 785.0 Active Rober Rodríguez STORAGE FACILITY RENTAL CLERK Tachycardia, unspecified Insect bite, infected 919.5 Resolved Desmond Diaz DO Insect bite, nonvenomous, of other, multiple, and unspecified sites, infected Abscess, skin 682.9 Resolved Desmond Diaz DO Cellulitis and abscess of unspecified sites URI 465.9 Resolved Desmond Diaz DO Acute upper respiratory infections of unspecified site Hypertension 401.9 Active Rober Rodríguez STORAGE FACILITY RENTAL CLERK Unspecified essential hypertension Sinusitis - acute [...] Hypogonadism, low testosterone 257.2 Active Erin Mai STORAGE FACILITY RENTAL CLERK Other testicular hypofunction Low back pain, [...] 37.0-37.9, adult Sinusitis ICD-461.9 Inactive Emily Atwood DISTILLATION OPERATOR HELPER 2017 Low back pain, acute ICD-724.2 Inactive Emily Atwood DISTILLATION OPERATOR HELPER Low back pain, chronic ICD-724.2 Inactive Emily Atwood DISTILLATION OPERATOR HELPER Bronchitis, acute ICD-466.0 Inactive Emily Atwood DISTILLATION OPERATOR HELPER Onychomycosis, toenails ICD-110.1 Inactive Emily Atwood DISTILLATION OPERATOR HELPER Dizziness ICD-780.4 Inactive Emily Atwood DISTILLATION OPERATOR HELPER 2017 Folliculitis ICD-704.8 Inactive Emily Atwood DISTILLATION OPERATOR HELPER Pharyngitis-Acute ICD-462 Inactive Emily Atwood DISTILLATION OPERATOR HELPER Fatigue ICD-780.79 Inactive Emily Atwood DISTILLATION OPERATOR HELPER 09/20 Hypertension, secondary, malignant ICD-405.09 Inactive Emily Atwood DISTILLATION OPERATOR HELPER Insect bite, infected ICD-919.5 Inactive Emily Atwood DISTILLATION OPERATOR HELPER Abscess, skin ICD-682.9 Inactive Emily Atwood DISTILLATION OPERATOR HELPER URI ICD-465.9 Inactive Emily Atwood DISTILLATION OPERATOR HELPER Sinusitis - acute ICD-461.9 Inactive Emily Atwood DISTILLATION OPERATOR HELPER Acute confusion ICD-293.0 Inactive Emily Atwood DISTILLATION OPERATOR HELPER Headache ICD-784.0 Inactive Emily Rai CISSE 09/20 [...] HOUR 1 po q day ISOSORBIDE MONONITRATE 83260898110 Active Emma Hernandez Active METOPROLOL SUCCINATE ER 200 MG ORAL TABLET EXTENDED RELEASE 24 HOUR take 1 tab po qday for high blood pressure and rapid pulse METOPROLOL SUCCINATE 47120446440 Active Robbie Busby MD Active [id number] 0.3 MG/24HR TRANSDERMAL PATCH WEEKLY apply 2 patches q week for HTN CLONIDINE HCL 29725252992 No Longer Active Robbie Busby MD Active IMDUR 60 MG ORAL TABLET EXTENDED RELEASE 24 HOUR take 1 tab po qday for blood pressure ISOSORBIDE MONONITRATE 08321447420 No Longer Active Robbie Busby MD Active TEMAZEPAM 15 MG ORAL CAPSULE 1 TAB PO Q HS TEMAZEPAM 68471300263 No Longer Active Robbie Busby MD Active TOPIRAMATE 50 MG ORAL TABLET 1 po BID for migraines TOPIRAMATE 04288797591 No Longer Active Robbie Busby MD Active CYCLOBENZAPRINE HCL 10 MG ORAL TABLET 1 tablet by mouth three times daily as needed for muscle spasm/pain CYCLOBENZAPRINE HCL 46448666506 No Longer Active Robbie Busby MD Active TOPROL XL 200 MG ORAL TABLET EXTENDED RELEASE 24 HOUR Take one by mouth daily METOPROLOL SUCCINATE 60103059521 No Longer Active Robbie Busby MD Active METFORMIN HCL 500 MG ORAL TABLET 1 tablet by mouth daily for diabetes type 2 METFORMIN HCL 27033642230 Active Robbie Busby MD Active SINGULAIR 10 MG ORAL TABLET 1 po qday for allergies. MONTELUKAST SODIUM 69666414141 No Longer Active Robbie Busby MD Active PREDNISONE 20 MG ORAL TABLET two tabs by mouth today, then one tab by mouth days two and three PREDNISONE 48877525730 No Longer Active Robbie Busby MD Active AZITHROMYCIN 250 MG ORAL TABLET 2 po qd x 1 day, then 1 po qd x 4 days 09/20 AZITHROMYCIN 67785581698 No Longer Active Desmond Diaz DO Active TOPIRAMATE 50 MG ORAL TABLET take 1 tab po BID for migraines. TOPIRAMATE 94916613494 No Longer Active Desmond Diaz DO Active CYCLOBENZAPRINE HCL 10 MG ORAL TABLET 1 po TID PRN muscle spasm/pain for 10 days CYCLOBENZAPRINE HCL 37669508034 No Longer Active Desmond Diaz DO Active GUAIFENESIN ER 600 MG ORAL TABLET EXTENDED RELEASE 12 HOUR 1 tab po q am 2016 GUAIFENESIN 92465377803 No Longer Active Robbie Busby MD Active DIVALPROEX SODIUM ER 500 MG ORAL TABLET EXTENDED RELEASE 24 HOUR Once daily DIVALPROEX SODIUM 62367740256 Active Robbie Busby MD Active DEPO-TESTOSTERONE 200 MG/ML INTRAMUSCULAR SOLUTION 1 IM Injections every 2 weeks for low testosterone TESTOSTERONE CYPIONATE 29654517778 Active Zulema Blank LPN Active FLUTICASONE PROPIONATE 50 MCG/ACT NASAL SUSPENSION 2 sprays per nostril bid for 1 week, then 1 spray bid FLUTICASONE PROPIONATE 19612051465 Active Rober Rodríguez APRN Active HYDRALAZINE HCL 25 MG ORAL TABLET Take 1 tab BID. HYDRALAZINE HCL 95332211756 Active Rober Rodríguez APRN Active VITAMIN D3 09257 UNIT ORAL TABLET 2 po weekly CHOLECALCIFEROL 51840532639 Active Robbie Busby MD Active OXYCODONE HCL ER 10 MG ORAL TABLET ER 12 HOUR ABUSE-DETERRENT 1 tab po 3 times qd. OXYCODONE HCL 43376203856 Active Robbie Busby MD Active NITROSTAT 0.4 MG SUBLINGUAL TABLET SUBLINGUAL PRN NITROGLYCERIN 65391194924 No Longer Active Robbie Busby MD Active LORATADINE 10 MG ORAL TABLET 1 tablet by mouth daily for congestion and allergies. LORATADINE 84286489199 No Longer Active Robbie Busby MD Active FLONASE 50 MCG/ACT NASAL SUSPENSION 1 spray each nostril twice daily for allergies and runny nose FLUTICASONE PROPIONATE 82526494239 No Longer Active Robbie Busby MD Active FIORICET 50-300-40 MG ORAL CAPSULE take 1 tab po qday prn migraines. [id number] 73409837710 No Longer Active Robbie Busby MD Active VITAMIN D3 28738 UNIT ORAL CAPSULE 2 CAPS PO WEEKLY CHOLECALCIFEROL 15486637544 No Longer Active Robbie Busby MD Active CYCLOBENZAPRINE HCL 10 MG ORAL TABLET 1 tablet by mouth three times daily as needed for muscle spasm/pain for 10 days CYCLOBENZAPRINE HCL 67482356129 No Longer Active Robbie Busby MD Active PREDNISONE 20 MG ORAL TABLET take 3 tabs daily for 3 days, 2 tabs daily for 3 days, 1 tab daily for 3 days, 1/2 tab daily for 4 days PREDNISONE 99309272739 No Longer Active Erin Mai APRN Active CLONIDINE HCL 0.2 MG ORAL TABLET 1 TAB BY MOUTH EVERY 8 HOURS CLONIDINE HCL 97875802206 No Longer Active Erin Mai APRN Active MECLIZINE HCL 25 MG ORAL TABLET one 4 times a day as needed for dizziness MECLIZINE HCL 14833720630 No Longer Active Erin Mai APRN Active SPIRONOLACTONE 25 MG ORAL TABLET 4 tablets by mouth daily SPIRONOLACTONE 20361291275 No Longer Active Erin Riverall STORAGE FACILITY RENTAL CLERK Active LEVAQUIN 500 MG ORAL TABLET 1 tablet by mouth daily for 7 days LEVOFLOXACIN 09477022911 No Longer Active Erin Mai STORAGE FACILITY RENTAL CLERK Active BACTRIM DS 800-160 MG ORAL TABLET 1 tab by mouth twice daily 2015 TRIMETHOPRIM-SULFAMETHOXAZOLE 79208958804 No Longer Active Robbie Busby MD Active HYDRALAZINE HCL 50 MG ORAL TABLET TWO BY MOUTH THREE TIMES DAILY HYDRALAZINE HCL 45423708644 No Longer Active Jillina Frazell STORAGE FACILITY RENTAL CLERK Active HYDROCODONE-ACETAMINOPHEN 5-325 MG ORAL TABLET 1 tab by mouth BID prn back pain HYDROCODONE-ACETAMINOPHEN 54129846453 No Longer Active Jillina Frazell STORAGE FACILITY RENTAL CLERK Active HYDROCHLOROTHIAZIDE TABLET Take one by mouth daily HYDROCHLOROTHIAZIDE TABS 53395766193 No Longer Active Jillina Frazell STORAGE FACILITY RENTAL CLERK Active LAMISIL 125 MG ORAL PACKET 1 TAB PO DAILY TERBINAFINE HCL 28902650304 No Longer Active Jillina Frazell STORAGE FACILITY RENTAL CLERK Active TRILEPTAL 150 MG ORAL TABLET 1 TAB PO Q HS OXCARBAZEPINE 02790529128 No Longer Active Jillina Frazell STORAGE FACILITY RENTAL CLERK Active BETADINE 10 % EXTERNAL SOLUTION 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 07/29 POVIDONE-IODINE 03330475580 No Longer Active Jillina Frazell STORAGE FACILITY RENTAL CLERK Active NYSTATIN 107954 UNIT/ML MOUTH/THROAT SUSPENSION 5mL po QID x 10 days NYSTATIN 03740825019 No Longer Active Erin Mai STORAGE FACILITY RENTAL CLERK Active PREDNISONE 20 MG ORAL TABLET 1 tablet twice daily for 2 days, then 1 tablet once daily for 2 days PREDNISONE 12755995570 No Longer Active Robbie Busby MD Active CEFDINIR 300 MG ORAL CAPSULE Take 1 cap po bid x 10 days CEFDINIR 58539149976 No Longer Active Robbie Busby MD Active AMLODIPINE BESYLATE 10 MG ORAL TABLET 1 tablet by mouth daily AMLODIPINE BESYLATE 16524918998 Active Robbie Busby MD Active CARVEDILOL 25 MG ORAL TABLET 1 & 1/2 TAB po BID CARVEDILOL 87651703939 Active Robbie Busby MD Active NEXIUM 40 MG ORAL CAPSULE DELAYED RELEASE 1 cap by mouth daily ESOMEPRAZOLE MAGNESIUM 15782684057 Active Robbie Busby MD Active PROTONIX 40 MG INTRAVENOUS SOLUTION RECONSTITUTED 1 po qday for acid reflux PANTOPRAZOLE SODIUM 88488054512 No Longer Active Galileonila Negro Active KEFLEX 500 MG ORAL CAPSULE 1 po TID x 10 days CEPHALEXIN 12315656073 No Longer Active Robbie Busby MD Active ALPRAZOLAM 2 MG ORAL TABLET 1 TAB PO BID ALPRAZOLAM 73851034090 Active Robbie Busby MD Active FENOFIBRATE 145 MG ORAL TABLET Take one by mouth daily FENOFIBRATE 09022688637 No Longer Active Robbie Busby MD Active SPIRONOLACTONE 50 MG ORAL TABLET 1 tablet by mouth twice a day SPIRONOLACTONE 65720241567 No Longer Active Robbie Busby MD Active HYDRALAZINE HCL 25 MG ORAL TABLET 1 tablet by mouth tid for hypertension 2013 HYDRALAZINE HCL 68493136717 No Longer Active Robbie Busby MD Active VIIBRYD 40 MG ORAL TABLET take 1 tab po qday for depression. 2014 VILAZODONE HCL 59523064223 No Longer Active Robbie Busby MD Active TERBINAFINE HCL 250 MG ORAL TABLET 1 tab po qday for foot infection TERBINAFINE HCL 58015713502 No Longer Active Robbie Busby MD Active GABAPENTIN 300 MG ORAL CAPSULE 1 po q hs for nerve pain GABAPENTIN 21195249924 Active Robbie Busby MD Active CHERATUSSIN AC 100-10 MG/5ML ORAL SOLUTION 7.5 mL PO q 4-6 hrs PRN cough 2014 GUAIFENESIN-CODEINE 32053364309 No Longer Active Robbie Busby MD Active AZITHROMYCIN 250 MG ORAL TABLET 2 tablets PO today---then, 1 tablet PO daily x 4 more days (and 1 optional refill) AZITHROMYCIN 86335546120 No Longer Active Robbie Busby MD Active NORVASC 10 MG ORAL TABLET 1 tablet by mouth daily AMLODIPINE BESYLATE 60673193858 No Longer Active Alex ALVAREZ Active ISOSORBIDE DINITRATE 30 MG ORAL TABLET Take one by mouth daily ISOSORBIDE DINITRATE 05262980727 No Longer Active Robbie Busby MD Active VIIBRYD 40 MG ORAL TABLET 1 TA B PO DAILY VILAZODONE HCL 27294974033 Active Robbie Busby MD Active ZITHROMAX 250 MG ORAL TABLET 2 po today, then 1 po q days 2-5 AZITHROMYCIN 90211215015 No Longer Active Robbie Busby MD Active DOXAZOSIN MESYLATE 4 MG ORAL TABLET Take one by mouth daily DOXAZOSIN MESYLATE 53712867980 Active Robbie Busby MD Active VENLAFAXINE HCL ER 150 MG ORAL TABLET EXTENDED RELEASE 24 HOUR Take one by mouth daily VENLAFAXINE HCL 66646143946 Active Robbie Busby MD Active LIPITOR 40 MG ORAL TABLET Take one by mouth daily ATORVASTATIN CALCIUM 23957390481 Active Robbie Busby MD Active ISOSORBIDE DINITRATE 30 MG ORAL TABLET Take one by mouth daily ISOSORBIDE DINITRATE 30 MG ORAL TABLET 933254 ISOSORBIDE DINITRATE Inactive NORVASC 10 MG ORAL TABLET 1 tablet by mouth daily NORVASC 10 MG ORAL TABLET 730647 AMLODIPINE BESYLATE Inactive AZITHROMYCIN 250 MG ORAL TABLET 2 tablets PO today---then, 1 tablet PO daily x 4 more days (and 1 optional refill) AZITHROMYCIN 250 MG ORAL TABLET 263883 AZITHROMYCIN Inactive CHERATUSSIN AC 100-10 MG/5ML ORAL SOLUTION 7.5 mL PO q 4-6 hrs PRN cough 2014 CHERATUSSIN AC 100-10 MG/5ML ORAL SOLUTION 438680 GUAIFENESIN-CODEINE Inactive VIIBRYD 40 MG ORAL TABLET take 1 tab po qday for depression. 2014 VIIBRYD 40 MG ORAL TABLET VILAZODONE HCL Inactive HYDRALAZINE HCL 25 MG ORAL TABLET 1 tablet by mouth tid for hypertension 2013 HYDRALAZINE HCL 25 MG ORAL TABLET 996998 HYDRALAZINE HCL Inactive SPIRONOLACTONE 50 MG ORAL TABLET 1 tablet by mouth twice a day SPIRONOLACTONE 50 MG ORAL TABLET 353907 SPIRONOLACTONE Inactive FENOFIBRATE 145 MG ORAL TABLET Take one by mouth daily FENOFIBRATE 145 MG ORAL TABLET 586854 FENOFIBRATE Inactive PROTONIX 40 MG INTRAVENOUS SOLUTION RECONSTITUTED 1 po qday for acid reflux PROTONIX 40 MG INTRAVENOUS SOLUTION RECONSTITUTED 985211 PANTOPRAZOLE SODIUM Inactive CEFDINIR 300 MG ORAL CAPSULE Take 1 cap po bid x 10 days CEFDINIR 300 MG ORAL CAPSULE 245057 CEFDINIR Inactive PREDNISONE 20 MG ORAL TABLET 1 tablet twice daily for 2 days, then 1 tablet once daily for 2 days PREDNISONE 20 MG ORAL TABLET 281467 PREDNISONE Inactive NYSTATIN 173299 UNIT/ML MOUTH/THROAT SUSPENSION 5mL po QID x 10 days NYSTATIN 350681 UNIT/ML MOUTH/THROAT SUSPENSION 574656 NYSTATIN Inactive BETADINE 10 % EXTERNAL SOLUTION 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 07/29 BETADINE 10 % EXTERNAL SOLUTION 6952178 POVIDONE-IODINE Inactive TRILEPTAL 150 MG ORAL TABLET 1 TAB PO Q HS TRILEPTAL 150 MG ORAL TABLET 778386 OXCARBAZEPINE Inactive LAMISIL 125 MG ORAL PACKET 1 TAB PO DAILY LAMISIL 125 MG ORAL PACKET TERBINAFINE HCL Inactive HYDROCHLOROTHIAZIDE TABLET Take one by mouth daily HYDROCHLOROTHIAZIDE TABLET HYDROCHLOROTHIAZIDE TABS Inactive HYDROCODONE-ACETAMINOPHEN 5-325 MG ORAL TABLET 1 tab by mouth BID prn back pain HYDROCODONE-ACETAMINOPHEN 5-325 MG ORAL TABLET 799030 HYDROCODONE-ACETAMINOPHEN Inactive HYDRALAZINE HCL 50 MG ORAL TABLET TWO BY MOUTH THREE TIMES DAILY HYDRALAZINE HCL 50 MG ORAL TABLET 025280 HYDRALAZINE HCL Inactive LEVAQUIN 500 MG ORAL TABLET 1 tablet by mouth daily for 7 days LEVAQUIN 500 MG ORAL TABLET 880877 LEVOFLOXACIN Inactive SPIRONOLACTONE 25 MG ORAL TABLET 4 tablets by mouth daily SPIRONOLACTONE 25 MG ORAL TABLET 525647 SPIRONOLACTONE Inactive MECLIZINE HCL 25 MG ORAL TABLET one 4 times a day as needed for dizziness MECLIZINE HCL 25 MG ORAL TABLET 051192 MECLIZINE HCL Inactive CLONIDINE HCL 0.2 MG ORAL TABLET 1 TAB BY MOUTH EVERY 8 HOURS CLONIDINE HCL 0.2 MG ORAL TABLET 675844 CLONIDINE HCL Inactive CYCLOBENZAPRINE HCL 10 MG ORAL TABLET 1 tablet by mouth three times daily as needed for muscle spasm/pain for 10 days CYCLOBENZAPRINE HCL 10 MG ORAL TABLET 200752 CYCLOBENZAPRINE HCL Inactive VITAMIN D3 00608 UNIT ORAL CAPSULE 2 CAPS PO WEEKLY VITAMIN D3 33059 UNIT ORAL CAPSULE CHOLECALCIFEROL Inactive FIORICET 50-300-40 MG ORAL CAPSULE take 1 tab po qday prn migraines. FIORICET 50-300-40 MG ORAL CAPSULE 001614 BUTALBITAL-APAP- CAFFEINE Inactive FLONASE 50 MCG/ACT NASAL SUSPENSION 1 spray each nostril twice daily for allergies and runny nose FLONASE 50 MCG/ACT NASAL SUSPENSION 9330775 FLUTICASONE PROPIONATE Inactive LORATADINE 10 MG ORAL TABLET 1 tablet by mouth daily for congestion and allergies. LORATADINE 10 MG ORAL TABLET 045487 LORATADINE Inactive NITROSTAT 0.4 MG SUBLINGUAL TABLET SUBLINGUAL PRN NITROSTAT 0.4 MG SUBLINGUAL TABLET SUBLINGUAL 868472 NITROGLYCERIN Inactive GUAIFENESIN ER 600 MG ORAL TABLET EXTENDED RELEASE 12 HOUR 1 tab po q am 2016 GUAIFENESIN ER 600 MG ORAL TABLET EXTENDED RELEASE 12 HOUR GUAIFENESIN Inactive CYCLOBENZAPRINE HCL 10 MG ORAL TABLET 1 po TID PRN muscle spasm/pain for 10 days CYCLOBENZAPRINE HCL 10 MG ORAL TABLET 152834 CYCLOBENZAPRINE HCL Inactive TOPIRAMATE 50 MG ORAL TABLET take 1 tab po BID for migraines. TOPIRAMATE 50 MG ORAL TABLET 431212 TOPIRAMATE Inactive PREDNISONE 20 MG ORAL TABLET two tabs by mouth today, then one tab by mouth days two and three PREDNISONE 20 MG ORAL TABLET 326995 PREDNISONE Inactive TOPROL XL 200 MG ORAL TABLET EXTENDED RELEASE 24 HOUR Take one by mouth daily TOPROL XL 200 MG ORAL TABLET EXTENDED RELEASE 24 HOUR METOPROLOL SUCCINATE Inactive CYCLOBENZAPRINE HCL 10 MG ORAL TABLET 1 tablet by mouth three times daily as needed for muscle spasm/pain CYCLOBENZAPRINE HCL 10 MG ORAL TABLET 786738 CYCLOBENZAPRINE HCL Inactive TOPIRAMATE 50 MG ORAL TABLET 1 po BID for migraines TOPIRAMATE 50 MG ORAL TABLET 813308 TOPIRAMATE Inactive TEMAZEPAM 15 MG ORAL CAPSULE 1 TAB PO Q HS TEMAZEPAM 15 MG ORAL CAPSULE 115623 TEMAZEPAM Inactive IMDUR 60 MG ORAL TABLET EXTENDED RELEASE 24 HOUR take 1 tab po qday for blood pressure IMDUR 60 MG ORAL TABLET EXTENDED RELEASE 24 HOUR ISOSORBIDE MONONITRATE Inactive [id number] 0.3 MG/24HR TRANSDERMAL PATCH WEEKLY apply 2 patches q week for HTN [id number] 0.3 MG/24HR TRANSDERMAL PATCH WEEKLY 021727 CLONIDINE HCL Inactive ZITHROMAX 250 MG ORAL TABLET 2 po today, then 1 po q days 2-5 ZITHROMAX 250 MG ORAL TABLET 206843 AZITHROMYCIN Inactive TERBINAFINE HCL 250 MG ORAL TABLET 1 tab po qday for foot infection TERBINAFINE HCL 250 MG ORAL TABLET 249180 TERBINAFINE HCL Inactive KEFLEX 500 MG ORAL CAPSULE 1 po TID x 10 days KEFLEX 500 MG ORAL CAPSULE 889130 CEPHALEXIN Inactive BACTRIM DS 800-160 MG ORAL TABLET 1 tab by mouth twice daily 2015 BACTRIM DS 800-160 MG ORAL TABLET 229843 TRIMETHOPRIM- SULFAMETHOXAZOLE Inactive PREDNISONE 20 MG ORAL TABLET take 3 tabs daily for 3 days, 2 tabs daily for 3 days, 1 tab daily for 3 days, 1/2 tab daily for 4 days PREDNISONE 20 MG ORAL TABLET 877084 PREDNISONE Inactive AZITHROMYCIN 250 MG ORAL TABLET 2 po qd x 1 day, then 1 po qd x 4 days 09/20 AZITHROMYCIN 250 MG ORAL TABLET 671527 AZITHROMYCIN Inactive SINGULAIR 10 MG ORAL TABLET 1 po qday for allergies. SINGULAIR 10 MG ORAL TABLET 858772 MONTELUKAST SODIUM Inactive Advance Directives Directive Description [...] AUTO - Chemistry sodium, serum 142 mmol/L 684-512 9703/07/17 carbon dioxide, venous blood 28.2 mmol/L 21.0-32.0 [...] % 11.0-15.0 platelet count 185 THOUSAND/UL 10*3/mm3 474-108 9250/04/14 mean platelet volume 10.9 fL 7.5-12.5 Lab Report: Comp. Metabolic Panel - Chemistry sodium, serum 141 mmol/L 619-042 0281/02/13 carbon dioxide, venous blood 23.9 mmol/L 21.0-32.0 [...] 6.9 % 4.3-6.0 sodium, serum 139 mmol/L 915-863 9113/01/04 potassium, serum 3.9 mmol/L 3.5-5.2 chloride, serum 103 mmol/L 98-107 carbon dioxide, venous blood 26.9 mmol/L 21.0-32.0 blood glucose 106 mg/dL 65-110 calcium, serum 9.0 mg/dL 8.5-10.1 urea nitrogen, blood 20 mg/dL 7-18 creatinine, serum 1.46 mg/dL 0.60-1.30 Lab Report: LIPID PANEL, TSH/899, T4, FREE/866 - Chemistry cholesterol, serum 220 mg/dL 102-839 4235/04/14 HDL cholesterol, serum 30 mg/dL > OR=40 [...] 1.80 ng/mL 0.00-4.00 Lab Report: VITAMIN D, 25-HYDROXY/70893 - Chemistry vitamin D 25-hydroxy, serum 25 ng/mL 30-100 Office Visit: Confusion, dizziness after fall - Basic LDL target level 130 mg/dL Office Visit: Confusion, dizziness after fall - Chemistry HDL cholesterol, serum, target level 40 mg/dL triglyceride, target level 150 mg/dL cholesterol, target level 200 mg/dL Encounters Code Encounter Date Provider Facility CPT-66484 Level 4 Est. Patient 09:50:01 PHOTO LAB MANAGER Robbie Busby MD [facility] CPT-13729 Level 4 Est. Patient 09:42:08 PHOTO LAB MANAGER Robbie Busby MD [facility] CPT-83414 Level 4 Est. Patient 13:07:39 PHOTO LAB MANAGER Robbie Busby MD [facility] CPT-48025 Level 4 Est. Patient 15:23:44 PHOTO LAB MANAGER Desmond Diza DO [facility] CPT-71224 Level 3 Est. Patient 15:40:49 CDT Robbie Busby MD [facility] CPT-52082 Level 4 Est. Patient 15:18:19 CDT Robbie Busby MD [facility] CPT-88471 Level 3 Est. Patient 09:00:37 CDT Rober Rodríguez [facility] CPT-04685 Level 3 Est. Patient 16:07:10 CDT Robbie Busby MD [facility] CPT-63205 Level 4 Est. Patient 11:56:16 CDT Erin Mai [facility] CPT-18696 Level 3 Est. Patient 17:48:02 CDT Robbie Busby MD [facility] CPT-72535 Level 4 Est. Patient 12:00:49 PHOTO LAB MANAGER Rober Rodríguez [facility] CPT-56591 Level 3 Est. Patient 09:16:37 CDT Robbie Busby MD [facility]-84486 Level 3 Est. Patient 19:38:43 CDT Robbie Busby MD [facility] CPT-06270 Level 3 Est. Patient 11:53:38 CDT Robbie Busby MD [facility] CPT-91925 Level 4 Est. Patient 12:52:22 CDT Rober Rodríguez [facility]-54591 Level 4 Est. Patient 22:55:17 CDT Robbie Busby MD [facility]-85051 Level 3 Est. Patient 12:38:24 CDT Desmond Diaz DO [facility] CPT-65935 Level 4 Est. Patient 11:25:03 PHOTO LAB MANAGER Robbie Busby MD [facility] CPT-19683 Level 4 Est. Patient 14:50:10 CDT Robbie Busby MD [facility] CPT-57531 Level 4 Est. Patient 23:30:43 CDT Robbie Busby MD [facility] CPT-35087 Level 4 Est. Patient 10:30:43 CDT Robbie Busby MD [facility] CPT-59524 Level 3 Est. Patient 17:08:12 CDT Alex ALVAREZ [facility] CPT-75853 Level 4 Est. Patient 17:51:38 CDT Robbie Busby MD [facility]-15917 Level 4 Est. Patient 14:00:21 CDT Robbie Busby MD [facility] CPT-19891 Level 4 Est. Patient 12:46:48 CDT Robbie Busby MD [facility] CPT-70722 Level 4 Est. Patient 13:34:33 CDT Robbie Busby MD [facility] CPT-31971 Level 4 Est. Patient 16:58:28 CDT Robbie Busby MD [facility] CPT-96553 Level 3 Est. Patient 19:36:53 CDT Alex ALVAREZ [facility] CPT-83402 Level 3 Est. Patient 12:58:15 CDT Robbie Busby MD [facility] Procedures Code Procedure Name Date Entry Date Standard Description CPT-J1071 Depo Testosterone 200mg 08:56:46 CDT CPT-55591 Abx/Therapy Injection 08:56:45 CDT CPT-J1071 Depo Testosterone 200mg 08:26:27 CDT CPT-82990 Abx/Therapy Injection 08:26:27 CDT CPT-J1071 Depo Testosterone 200mg 10:27:10 CDT CPT-48312 Abx/Therapy Injection 10:27:10 CDT CPT-J1071 Depo Testosterone 200mg 16:10:29 PHOTO LAB MANAGER CPT-91645 Abx/Therapy Injection 16:10:29 PHOTO LAB MANAGER CPT-J1071 Depo Testosterone 200mg 16:13:47 PHOTO LAB MANAGER CPT-65973 Abx/Therapy Injection 16:13:46 PHOTO LAB MANAGER CPT-J1071 Depo Testosterone 200mg 15:33:58 PHOTO LAB MANAGER CPT-61275 Abx/Therapy Injection 15:33:58 PHOTO LAB MANAGER CPT-J1071 Depo Testosterone 200mg 09:38:36 PHOTO LAB MANAGER CPT-67540 Abx/Therapy Injection 09:38:36 PHOTO LAB MANAGER CPT-J1071 Depo Testosterone 200mg 10:22:56 PHOTO LAB MANAGER CPT-91647 Abx/Therapy Injection 10:22:56 PHOTO LAB MANAGER CPT-J1071 Depo Testosterone 200mg 15:40:23 CDT CPT-14816 Abx/Therapy Injection 15:40:23 CDT CPT-J1071 Depo Testosterone 200mg 14:20:43 CDT CPT-59313 Abx/Therapy Injection 14:20:43 CDT CPT-J1071 Depo Testosterone 200mg 14:17:22 CDT CPT-14817 Abx/Therapy Injection 14:17:22 CDT CPT-J1071 Depo Testosterone 200mg 09:03:53 CDT CPT-61965 Abx/Therapy Injection 09:03:53 CDT CPT-G0439 [facility] Annual Wellness Exam 16:47:44 CDT CPT-J1071 Depo Testosterone 200mg 09:06:28 CDT CPT-34960 Abx/Therapy Injection 09:06:28 CDT CPT-J1071 Depo Testosterone 200mg 08:30:01 CDT CPT-10114 Abx/Therapy Injection 08:30:01 CDT CPT-J1071 Depo Testosterone 200mg 08:24:00 CDT CPT-13454 Abx/Therapy Injection 08:24:00 CDT CPT-23978 Venipuncture Draw Fee 14:39:06 CDT CPT-06093 Ribs unilateral 2V - XRAY USE ONLY 12:10:11 CDT CPT-54592 First Vx - Ix admin for Medicare patients 16:32:53 CDT CPT-86144 Boostrix Intramuscular Suspension 5-2.5-18.5 16:32:53 CDT CPT-76516 TB Skin Test 11:42:28 CDT CPT-61568 Tdap 7yrs or > 11:42:28 CDT CPT-J0696 Rocephin 1000 mg (Ceftriaxone) 17:43:43 PHOTO LAB MANAGER CPT-J1040 Depo Medrol 80 mg (Methyl Prednisolone Acetate) 17:43: 43 PHOTO LAB MANAGER CPT-J1100 Decadron 8mg (Dexamethasone) 17:43:42 PHOTO LAB MANAGER CPT-25729 Abx/Therapy Injection 17:43:42 PHOTO LAB MANAGER CPT-22117 Abx/Therapy Injection 17:43:42 PHOTO LAB MANAGER CPT-J1040 Depo Medrol 80 mg (Methyl Prednisolone Acetate) 09:43: 34 PHOTO LAB MANAGER CPT-J1100 Decadron 8mg (Dexamethasone) 09:43:34 PHOTO LAB MANAGER CPT-J0696 Rocephin 1gm Inj Solr 09:43:34 PHOTO LAB MANAGER CPT-24983 Wound Culture - LAB USE ONLY 14:00:21 CDT CPT-I/D I/D Abscess 09:16:37 CDT CPT-93009 Venipuncture Draw Fee 15:20:23 CDT CPT-89597 Microalbumin - LAB USE ONLY 16:02:19 CDT CPT-31626 CBC - LAB USE ONLY 16:02:19 CDT CPT-24968 Venipuncture Draw Fee 16:02:19 CDT CPT-G0438 Initial Annual Wellness Exam 08:10:28 CDT CPT-25233 Venipuncture Draw Fee 13:07:17 CDT CPT-G0008 Administration of Influenza Virus Vaccine 16:09:59 CDT CPT-26416 Fluzone Quadrivalent Intramuscular Suspension 0.5 ML 16: 09:59 CDT CPT-27598 Spec Collection and Handling Fee 15:05:50 CDT
--- OUTSIDE RECORDS SUMMARY | 2018-04-18 11:08 | XMS REPORT | Clinical Summary ---
Author Author Admin, AKUA Organization [employer] 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, 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 Fatigue 780.79 Resolved Desmond Diaz DO Other malaise and fatigue Hypertension, secondary, 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 Desmond Diaz DO Other malignant secondary hypertension Tachycardia 785.0 Active Rober Rodríguez [employer] ENG[employer] Tachycardia, unspecified Insect bite, infected 919.5 Resolved Desmond Diaz DO Insect bite, nonvenomous, of other, multiple, and unspecified sites, infected Abscess, skin 682.9 Resolved Desmond Diaz DO Cellulitis and abscess of unspecified sites URI 465.9 Resolved Desmond Diaz DO Acute upper respiratory infections of unspecified site Hypertension 401.9 Active Rober Rodríguez [employer] ENG[employer] Unspecified essential hypertension Sinusitis - acute 461.9 [...] Hypogonadism, low testosterone 257.2 Active Erin Garsia [employer]WARE ENGINE[employer] Other testicular hypofunction Low back pain, chronic 724.2 Active Robbie Busby MD Lumbago Bronchitis-Acute 466.0 Inactive Desmond Howell Joe DO Acute bronchitis Polydipsia 783.5 Active Desmond Dante Joe DO Polydipsia Sinusitis ICD-461.9 Inactive Emily Atwood NODULIZER 2017 Low back pain, acute ICD-724.2 Inactive Emily Atwood NODULIZER Low back pain, chronic ICD-724.2 Inactive Emily Atwood NODULIZER Bronchitis, acute ICD-466.0 Inactive Emily Atwood NODULIZER Onychomycosis, toenails ICD-110.1 Inactive Emily Atwood NODULIZER Dizziness ICD-780.4 Inactive Emily Atwood NODULIZER 2017 Folliculitis ICD-704.8 Inactive Emily Atwood NODULIZER Pharyngitis-Acute ICD-462 Inactive Emily Atwood NODULIZER Fatigue ICD-780.79 Inactive Emily Atwood NODULIZER 09/20 Hypertension, secondary, malignant ICD-405.09 Inactive Emily Atwood NODULIZER Insect bite, infected ICD-919.5 Inactive Emily Atwood NODULIZER Abscess, skin ICD-682.9 Inactive Emily Atwood NODULIZER URI ICD-465.9 Inactive Emily Atwood NODULIZER Sinusitis - acute ICD-461.9 Inactive Emily Atwood NODULIZER Acute confusion ICD-293.0 Inactive Emily Atwood NODULIZER Headache ICD-784.0 Inactive Emily Atwood NODULIZER 09/20 Back pain ICD-724.5 Inactive Emily Atwood NODULIZER 2017 Rib pain, right sided ICD-786.50 Inactive Emily Atwood NODULIZER Myalgias ICD-729.1 Inactive Emily Atwood NODULIZER 09/20 URI ICD-465.9 Inactive Emily Atwood TANNA Bronchitis-Acute ICD-466.0 Inactive Desmond Diaz DO Medication List Medication Instructions Start Date Stop Date Generic Name NDC Status Provider Patient Instruction PREDNISONE 20 MG ORAL TABLET two tabs by mouth today, then one tab by mouth days two and three PREDNISONE 40301858965 Active Desmond Diaz DO Active AZITHROMYCIN 250 MG ORAL TABLET 2 po qd x 1 day, then 1 po qd x 4 days 09/20 AZITHROMYCIN 66942270313 No Longer Active Desmond Diaz DO Active TOPIRAMATE 50 MG ORAL TABLET take 1 tab po BID for migraines. TOPIRAMATE 42447888418 No Longer Active Desmond Diaz DO Active CYCLOBENZAPRINE HCL 10 MG ORAL TABLET 1 po TID PRN muscle spasm/pain for 10 days CYCLOBENZAPRINE HCL 69980598135 No Longer Active Desmond Diaz DO Active GUAIFENESIN ER 600 MG ORAL TABLET EXTENDED RELEASE 12 HOUR 1 tab po q am 2016 GUAIFENESIN 46527614078 No Longer Active Robbie Busby MD Active DIVALPROEX SODIUM ER 500 MG ORAL TABLET EXTENDED RELEASE 24 HOUR Once daily DIVALPROEX SODIUM 09775576431 Active Robbie Busby MD Active DEPO-TESTOSTERONE 200 MG/ML INTRAMUSCULAR SOLUTION 1 IM Injections every 2 weeks for low testosterone TESTOSTERONE CYPIONATE 87761574728 Active Zulema Blank LPN Active FLUTICASONE PROPIONATE 50 MCG/ACT NASAL SUSPENSION 2 sprays per nostril bid for 1 week, then 1 spray bid FLUTICASONE PROPIONATE 86338041685 Active Rober Rodríguez APRN Active HYDRALAZINE HCL 25 MG ORAL TABLET Take 1 tab BID. HYDRALAZINE HCL 22669148545 Active Rober Rodríguez APRN Active VITAMIN D3 15834 UNIT ORAL TABLET 2 po weekly CHOLECALCIFEROL 81137722795 Active Robbie Busby MD Active OXYCODONE HCL ER 10 MG ORAL TABLET ER 12 HOUR ABUSE-DETERRENT 1 tab po 3 times qd. OXYCODONE HCL 90872386416 Active Robbie Busby MD Active NITROSTAT 0.4 MG SUBLINGUAL TABLET SUBLINGUAL PRN NITROGLYCERIN 47417051921 No Longer Active Robbie Busby MD Active LORATADINE 10 MG ORAL TABLET 1 tablet by mouth daily for congestion and allergies. LORATADINE 52081121928 No Longer Active Robbie Busby MD Active FLONASE 50 MCG/ACT NASAL SUSPENSION 1 spray each nostril twice daily for allergies and runny nose FLUTICASONE PROPIONATE 49230274705 No Longer Active Robbie Busby MD Active FIORICET 50-300-40 MG ORAL CAPSULE take 1 tab po qday prn migraines. [id number] 43118765532 No Longer Active Robbie Busby MD Active VITAMIN D3 85307 UNIT ORAL CAPSULE 2 CAPS PO WEEKLY CHOLECALCIFEROL 13904974076 No Longer Active Robbie Busby MD Active CYCLOBENZAPRINE HCL 10 MG ORAL TABLET 1 tablet by mouth three times daily as needed for muscle spasm/pain for 10 days CYCLOBENZAPRINE HCL 90378865263 No Longer Active Robbie Busby MD Active PREDNISONE 20 MG ORAL TABLET take 3 tabs daily for 3 days, 2 tabs daily for 3 days, 1 tab daily for 3 days, 1/2 tab daily for 4 days PREDNISONE 93483621003 No Longer Active Erin Garsia APRN Active CLONIDINE HCL 0.2 MG ORAL TABLET 1 TAB BY MOUTH EVERY 8 HOURS CLONIDINE HCL 29934781612 No Longer Active Erin Garsia APRN Active MECLIZINE HCL 25 MG ORAL TABLET one 4 times a day as needed for dizziness MECLIZINE HCL 35941842950 No Longer Active Erin Garsia APRN Active SPIRONOLACTONE 25 MG ORAL TABLET 4 tablets by mouth daily SPIRONOLACTONE 27849739098 No Longer Active Erin Garsia APRN Active LEVAQUIN 500 MG ORAL TABLET 1 tablet by mouth daily for 7 days LEVOFLOXACIN 59467810047 No Longer Active Erin Garsia APRN Active BACTRIM DS 800-160 MG ORAL TABLET 1 tab by mouth twice daily 2015 TRIMETHOPRIM-SULFAMETHOXAZOLE 67066782065 No Longer Active Robbie Busby MD Active HYDRALAZINE HCL 50 MG ORAL TABLET TWO BY MOUTH THREE TIMES DAILY HYDRALAZINE HCL 16663003017 No Longer Active Jillina Frazell [employer] HARDWARE ENGINEER Active HYDROCODONE-ACETAMINOPHEN 5-325 MG ORAL TABLET 1 tab by mouth BID prn back pain HYDROCODONE-ACETAMINOPHEN 66065933898 No Longer Active Jillina Frazell ELECTRICAL HARDWARE ENGINEER Active HYDROCHLOROTHIAZIDE TABLET Take one by mouth daily HYDROCHLOROTHIAZIDE TABS 26145842720 No Longer Active Jillina Frazell ELECTRICAL HARDWARE ENGINEER Active LAMISIL 125 MG ORAL PACKET 1 TAB PO DAILY TERBINAFINE HCL 63237957392 No Longer Active Jillina Frazell ELECTRICAL HARDWARE ENGINEER Active TRILEPTAL 150 MG ORAL TABLET 1 TAB PO Q HS OXCARBAZEPINE 27075131297 No Longer Active Jillina Frazell ELECTRICAL HARDWARE ENGINEER Active BETADINE 10 % EXTERNAL SOLUTION 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 07/29 POVIDONE-IODINE 41487169726 No Longer Active Jillina Frazell [employer]LECT[employer]ICAL HARDWARE ENGINEER Active NYSTATIN 235646 UNIT/ML MOUTH/THROAT SUSPENSION 5mL po QID x 10 days NYSTATIN 88761117551 No Longer Active Erin Garsia APRN Active PREDNISONE 20 MG ORAL TABLET 1 tablet twice daily for 2 days, then 1 tablet once daily for 2 days PREDNISONE 85668280566 No Longer Active Robbie Busby MD Active CEFDINIR 300 MG ORAL CAPSULE Take 1 cap po bid x 10 days CEFDINIR 66920825235 No Longer Active Robbie Busby MD Active AMLODIPINE BESYLATE 10 MG ORAL TABLET 1 tablet by mouth daily AMLODIPINE BESYLATE 43228781727 Active Robbie Busby MD Active CARVEDILOL 25 MG ORAL TABLET 1 & 1/2 TAB po BID CARVEDILOL 56110644996 Active Robbie Busby MD Active NEXIUM 40 MG ORAL CAPSULE DELAYED RELEASE 1 cap by mouth daily ESOMEPRAZOLE MAGNESIUM 38009271292 Active Robbie Busby MD Active PROTONIX 40 MG INTRAVENOUS SOLUTION RECONSTITUTED 1 po qday for acid reflux PANTOPRAZOLE SODIUM 71677502149 No Longer Active Gali Raida Active KEFLEX 500 MG ORAL CAPSULE 1 po TID x 10 days CEPHALEXIN 27025926803 No Longer Active Robbie Busby MD Active TEMAZEPAM 15 MG ORAL CAPSULE 1 TAB PO Q HS TEMAZEPAM 35496648598 Active Robbie Busby MD Active ALPRAZOLAM 2 MG ORAL TABLET 1 TAB PO BID ALPRAZOLAM 75463862491 Active Robbie Busby MD Active FENOFIBRATE 145 MG ORAL TABLET Take one by mouth daily FENOFIBRATE 30745967289 No Longer Active Robbie Busby MD Active SPIRONOLACTONE 50 MG ORAL TABLET 1 tablet by mouth twice a day SPIRONOLACTONE 59375066820 No Longer Active Robbie Busby MD Active HYDRALAZINE HCL 25 MG ORAL TABLET 1 tablet by mouth tid for hypertension 2013 HYDRALAZINE HCL 34788175444 No Longer Active Robbie Busby MD Active VIIBRYD 40 MG ORAL TABLET take 1 tab po qday for depression. 2014 VILAZODONE HCL 78705911705 No Longer Active Robbie Busby MD Active TERBINAFINE HCL 250 MG ORAL TABLET 1 tab po qday for foot infection TERBINAFINE HCL 29611196914 No Longer Active Robbie Busby MD Active GABAPENTIN 300 MG ORAL CAPSULE 1 po q hs for nerve pain GABAPENTIN 99487113673 Active Robbie Busby MD Active CHERATUSSIN AC 100-10 MG/5ML ORAL SOLUTION 7.5 mL PO q 4-6 hrs PRN cough 2014 GUAIFENESIN-CODEINE 60450903753 No Longer Active Robbie Busby MD Active AZITHROMYCIN 250 MG ORAL TABLET 2 tablets PO today---then, 1 tablet PO daily x 4 more days (and 1 optional refill) AZITHROMYCIN 74402868261 No Longer Active Robbie Busby MD Active NORVASC 10 MG ORAL TABLET 1 tablet by mouth daily AMLODIPINE BESYLATE 27773401729 No Longer Active Alex ALVAREZ Active IMDUR 60 MG ORAL TABLET EXTENDED RELEASE 24 HOUR take 1 tab po qday for blood pressure ISOSORBIDE MONONITRATE 04145229803 Active Robbie Busby MD Active ISOSORBIDE DINITRATE 30 MG ORAL TABLET Take one by mouth daily ISOSORBIDE DINITRATE 05672870101 No Longer Active Robbie Busby MD Active VIIBRYD 40 MG ORAL TABLET 1 TA B PO DAILY VILAZODONE HCL 05315397924 Active Robbie Busby MD Active ZITHROMAX 250 MG ORAL TABLET 2 po today, then 1 po q days 2-5 AZITHROMYCIN 58775255061 No Longer Active Robbie Busby MD Active [id number] 0.3 MG/24HR TRANSDERMAL PATCH WEEKLY apply 2 patches q week for HTN CLONIDINE HCL 54739420467 Active Robbie Busby MD Active DOXAZOSIN MESYLATE 4 MG ORAL TABLET Take one by mouth daily DOXAZOSIN MESYLATE 06074896070 Active Robbie Busby MD Active TOPROL XL 200 MG ORAL TABLET EXTENDED RELEASE 24 HOUR Take one by mouth daily METOPROLOL SUCCINATE 22805563725 Active Robbie Busby MD Active VENLAFAXINE HCL ER 150 MG ORAL TABLET EXTENDED RELEASE 24 HOUR Take one by mouth daily VENLAFAXINE HCL 32238736509 Active Robbie Busby MD Active LIPITOR 40 MG ORAL TABLET Take one by mouth daily ATORVASTATIN CALCIUM 56937051030 Active Robbie Busby MD Active ISOSORBIDE DINITRATE 30 MG ORAL TABLET Take one by mouth daily ISOSORBIDE DINITRATE 30 MG ORAL TABLET 674608 ISOSORBIDE DINITRATE Inactive NORVASC 10 MG ORAL TABLET 1 tablet by mouth daily NORVASC 10 MG ORAL TABLET 248767 AMLODIPINE BESYLATE Inactive AZITHROMYCIN 250 MG ORAL TABLET 2 tablets PO today---then, 1 tablet PO daily x 4 more days (and 1 optional refill) AZITHROMYCIN 250 MG ORAL TABLET 996797 AZITHROMYCIN Inactive CHERATUSSIN AC 100-10 MG/5ML ORAL SOLUTION 7.5 mL PO q 4-6 hrs PRN cough 2014 CHERATUSSIN AC 100-10 MG/5ML ORAL SOLUTION 623167 GUAIFENESIN-CODEINE Inactive VIIBRYD 40 MG ORAL TABLET take 1 tab po qday for depression. 2014 VIIBRYD 40 MG ORAL TABLET VILAZODONE HCL Inactive HYDRALAZINE HCL 25 MG ORAL TABLET 1 tablet by mouth tid for hypertension 2013 HYDRALAZINE HCL 25 MG ORAL TABLET 168741 HYDRALAZINE HCL Inactive SPIRONOLACTONE 50 MG ORAL TABLET 1 tablet by mouth twice a day SPIRONOLACTONE 50 MG ORAL TABLET 718508 SPIRONOLACTONE Inactive FENOFIBRATE 145 MG ORAL TABLET Take one by mouth daily FENOFIBRATE 145 MG ORAL TABLET 897233 FENOFIBRATE Inactive PROTONIX 40 MG INTRAVENOUS SOLUTION RECONSTITUTED 1 po qday for acid reflux PROTONIX 40 MG INTRAVENOUS SOLUTION RECONSTITUTED 138425 PANTOPRAZOLE SODIUM Inactive CEFDINIR 300 MG ORAL CAPSULE Take 1 cap po bid x 10 days CEFDINIR 300 MG ORAL CAPSULE 147792 CEFDINIR Inactive PREDNISONE 20 MG ORAL TABLET 1 tablet twice daily for 2 days, then 1 tablet once daily for 2 days PREDNISONE 20 MG ORAL TABLET 502619 PREDNISONE Inactive NYSTATIN 567317 UNIT/ML MOUTH/THROAT SUSPENSION 5mL po QID x 10 days NYSTATIN 817664 UNIT/ML MOUTH/THROAT SUSPENSION 345472 NYSTATIN Inactive BETADINE 10 % EXTERNAL SOLUTION 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 07/29 BETADINE 10 % EXTERNAL SOLUTION 5776488 POVIDONE-IODINE Inactive TRILEPTAL 150 MG ORAL TABLET 1 TAB PO Q HS TRILEPTAL 150 MG ORAL TABLET 370378 OXCARBAZEPINE Inactive LAMISIL 125 MG ORAL PACKET 1 TAB PO DAILY LAMISIL 125 MG ORAL PACKET TERBINAFINE HCL Inactive HYDROCHLOROTHIAZIDE TABLET Take one by mouth daily HYDROCHLOROTHIAZIDE TABLET HYDROCHLOROTHIAZIDE TABS Inactive HYDROCODONE-ACETAMINOPHEN 5-325 MG ORAL TABLET 1 tab by mouth BID prn back pain HYDROCODONE-ACETAMINOPHEN 5-325 MG ORAL TABLET 725060 HYDROCODONE-ACETAMINOPHEN Inactive HYDRALAZINE HCL 50 MG ORAL TABLET TWO BY MOUTH THREE TIMES DAILY HYDRALAZINE HCL 50 MG ORAL TABLET 567828 HYDRALAZINE HCL Inactive LEVAQUIN 500 MG ORAL TABLET 1 tablet by mouth daily for 7 days LEVAQUIN 500 MG ORAL TABLET 818221 LEVOFLOXACIN Inactive SPIRONOLACTONE 25 MG ORAL TABLET 4 tablets by mouth daily SPIRONOLACTONE 25 MG ORAL TABLET 361602 SPIRONOLACTONE Inactive MECLIZINE HCL 25 MG ORAL TABLET one 4 times a day as needed for dizziness MECLIZINE HCL 25 MG ORAL TABLET 226833 MECLIZINE HCL Inactive CLONIDINE HCL 0.2 MG ORAL TABLET 1 TAB BY MOUTH EVERY 8 HOURS CLONIDINE HCL 0.2 MG ORAL TABLET 007008 CLONIDINE HCL Inactive CYCLOBENZAPRINE HCL 10 MG ORAL TABLET 1 tablet by mouth three times daily as needed for muscle spasm/pain for 10 days CYCLOBENZAPRINE HCL 10 MG ORAL TABLET 994858 CYCLOBENZAPRINE HCL Inactive VITAMIN D3 23682 UNIT ORAL CAPSULE 2 CAPS PO WEEKLY VITAMIN D3 81828 UNIT ORAL CAPSULE CHOLECALCIFEROL Inactive FIORICET 50-300-40 MG ORAL CAPSULE take 1 tab po qday prn migraines. FIORICET 50-300-40 MG ORAL CAPSULE 154963 BUTALBITAL-APAP- CAFFEINE Inactive FLONASE 50 MCG/ACT NASAL SUSPENSION 1 spray each nostril twice daily for allergies and runny nose FLONASE 50 MCG/ACT NASAL SUSPENSION 8674590 FLUTICASONE PROPIONATE Inactive LORATADINE 10 MG ORAL TABLET 1 tablet by mouth daily for congestion and allergies. LORATADINE 10 MG ORAL TABLET 658813 LORATADINE Inactive NITROSTAT 0.4 MG SUBLINGUAL TABLET SUBLINGUAL PRN NITROSTAT 0.4 MG SUBLINGUAL TABLET SUBLINGUAL 458506 NITROGLYCERIN Inactive GUAIFENESIN ER 600 MG ORAL TABLET EXTENDED RELEASE 12 HOUR 1 tab po q am 2016 GUAIFENESIN ER 600 MG ORAL TABLET EXTENDED RELEASE 12 HOUR GUAIFENESIN Inactive CYCLOBENZAPRINE HCL 10 MG ORAL TABLET 1 po TID PRN muscle spasm/pain for 10 days CYCLOBENZAPRINE HCL 10 MG ORAL TABLET 130164 CYCLOBENZAPRINE HCL Inactive TOPIRAMATE 50 MG ORAL TABLET take 1 tab po BID for migraines. TOPIRAMATE 50 MG ORAL TABLET 494988 TOPIRAMATE Inactive ZITHROMAX 250 MG ORAL TABLET 2 po today, then 1 po q days 2-5 ZITHROMAX 250 MG ORAL TABLET 907604 AZITHROMYCIN Inactive TERBINAFINE HCL 250 MG ORAL TABLET 1 tab po qday for foot infection TERBINAFINE HCL 250 MG ORAL TABLET 170063 TERBINAFINE HCL Inactive KEFLEX 500 MG ORAL CAPSULE 1 po TID x 10 days KEFLEX 500 MG ORAL CAPSULE 088049 CEPHALEXIN Inactive BACTRIM DS 800-160 MG ORAL TABLET 1 tab by mouth twice daily 2015 BACTRIM DS 800-160 MG ORAL TABLET 916245 TRIMETHOPRIM- SULFAMETHOXAZOLE Inactive PREDNISONE 20 MG ORAL TABLET take 3 tabs daily for 3 days, 2 tabs daily for 3 days, 1 tab daily for 3 days, 1/2 tab daily for 4 days PREDNISONE 20 MG ORAL TABLET 805566 PREDNISONE Inactive AZITHROMYCIN 250 MG ORAL TABLET 2 po qd x 1 day, then 1 po qd x 4 days 09/20 AZITHROMYCIN 250 MG ORAL TABLET 301235 AZITHROMYCIN Inactive Advance Directives Directive Description Start [...] AUTO - Chemistry sodium, serum 142 mmol/L 285-063 9810/07/17 carbon dioxide, venous blood 28.2 mmol/L 21.0-32.0 [...] % 11.0-15.0 platelet count 185 THOUSAND/UL 10*3/mm3 205-346 0907/04/14 mean platelet volume 10.9 fL 7.5-12.5 Lab Report: HGBA1C, Basic Metabolic Panel - Chemistry hemoglobin A1C, blood, as % of total hemoglobin 6.9 % 4.3-6.0 sodium, serum 139 mmol/L 345-355 4942/01/04 potassium, serum 3.9 mmol/L 3.5-5.2 chloride, serum 103 mmol/L 98-107 carbon dioxide, venous blood 26.9 mmol/L 21.0-32.0 blood glucose 106 mg/dL 65-110 calcium, serum 9.0 mg/dL 8.5-10.1 urea nitrogen, blood 20 mg/dL 7-18 creatinine, serum 1.46 mg/dL 0.60-1.30 Lab Report: LIPID PANEL, TSH/899, T4, FREE/866 - Chemistry cholesterol, serum 220 mg/dL 584-172 5192/04/14 HDL cholesterol, serum 30 mg/dL > OR=40 [...] 1.80 ng/mL 0.00-4.00 Lab Report: VITAMIN D, 25-HYDROXY/35744 - Chemistry vitamin D 25-hydroxy, serum 25 ng/mL 30-100 Office Visit: Confusion, dizziness after fall - Basic LDL target level 130 mg/dL Office Visit: Confusion, dizziness after fall - Chemistry HDL cholesterol, serum, target level 40 mg/dL triglyceride, target level 150 mg/dL cholesterol, target level 200 mg/dL Encounters Code Encounter Date Provider Facility CPT-89589 Level 4 Est. Patient 15:23:44 [employer] Desmond Diaz DO [facility] CPT-63621 Level 3 Est. Patient 15:40:49 CDT Robbie Busby MD [facility] CPT-29435 Level 4 Est. Patient 15:18:19 CDT Robbie Busby MD [facility] CPT-74444 Level 3 Est. Patient 09:00:37 CDT Rober Rodríguez [facility] CPT-78795 Level 3 Est. Patient 16:07:10 CDT Robbie Busby MD [facility] CPT-07586 Level 4 Est. Patient 11:56:16 CDT Erin Garsia [facility] CPT-11365 Level 3 Est. Patient 17:48:02 CDT Robbie Busby MD [facility] CPT-11603 Level 4 Est. Patient 12:00:49 [employer] T[employer]OR Rober Rodríguez [facility] CPT-23537 Level 3 Est. Patient 09:16:37 CDT Robbie Busby MD [facility] CPT-12692 Level 3 Est. Patient 19:38:43 CDT Robbie Busby MD [facility] CPT-42450 Level 3 Est. Patient 11:53:38 CDT Robbie Busby MD -77037 Level 4 Est. Patient 12:52:22 CDT Rober Rodríguez APRN -53713 Level 4 Est. Patient 22:55:17 CDT Robbie Busby MD -04865 Level 3 Est. Patient 12:38:24 CDT Desmond Diaz DO -87814 Level 4 Est. Patient 11:25:03 [employer]OR Robbie Busby MD [facility]-67564 Level 4 Est. Patient 14:50:10 CDT Robbie Busby MD [facility]-56311 Level 4 Est. Patient 23:30:43 CDT Robbie Busby MD [facility]-63256 Level 4 Est. Patient 10:30:43 CDT Robbie Busby MD [facility] CPT-87170 Level 3 Est. Patient 17:08:12 CDT Alex ALVAREZ [facility]-65721 Level 4 Est. Patient 17:51:38 CDT Robbie Busby MD [facility]-40999 Level 4 Est. Patient 14:00:21 CDT Robbie Busby MD [facility]-82101 Level 4 Est. Patient 12:46:48 CDT Robbie Busby MD [facility]-88204 Level 4 Est. Patient 13:34:33 CDT Robbie Busby MD [facility]-80982 Level 4 Est. Patient 16:58:28 CDT Robbie Busby MD [facility]-73106 Level 3 Est. Patient 19:36:53 CDT Alex ALVAREZ [facility] CPT-78065 Level 3 Est. Patient 12:58:15 CDT Robbie Busby MD [facility] Procedures Code Procedure Name Date Entry Date Standard Description CPT-J1071 Depo Testosterone 200mg 15:33:58 [employer] CPT-08589 Abx/Therapy Injection 15:33:58 [facility] CPT-J1071 Depo Testosterone 200mg 09:38:36 [employer] CPT-25262 Abx/Therapy Injection 09:38:36 [facility] CPT-J1071 Depo Testosterone 200mg 10:22:56 [employer] CPT-22934 Abx/Therapy Injection 10:22:56 [employer] CPT-J1071 Depo Testosterone 200mg 15:40:23 CDT CPT-70642 Abx/Therapy Injection 15:40:23 CDT CPT-J1071 Depo Testosterone 200mg 14:20:43 CDT CPT-62202 Abx/Therapy Injection 14:20:43 CDT CPT-J1071 Depo Testosterone 200mg 14:17:22 CDT CPT-88244 Abx/Therapy Injection 14:17:22 CDT CPT-J1071 Depo Testosterone 200mg 09:03:53 CDT CPT-69086 Abx/Therapy Injection 09:03:53 CDT CPT-G0439 [facility] Annual Wellness Exam 16:47:44 CDT CPT-J1071 Depo Testosterone 200mg 09:06:28 CDT CPT-26849 Abx/Therapy Injection 09:06:28 CDT CPT-J1071 Depo Testosterone 200mg 08:30:01 CDT CPT-44829 Abx/Therapy Injection 08:30:01 CDT CPT-J1071 Depo Testosterone 200mg 08:24:00 CDT CPT-45746 Abx/Therapy Injection 08:24:00 CDT CPT-59825 Venipuncture Draw Fee 14:39:06 CDT CPT-12903 Ribs unilateral 2V - XRAY USE ONLY 12:10:11 CDT CPT-74882 First Vx - Ix admin for Medicare patients 16:32:53 CDT CPT-03020 Boostrix Intramuscular Suspension 5-2.5-18.5 16:32:53 CDT CPT-76077 TB Skin Test 11:42:28 CDT CPT-52782 Tdap 7yrs or > 11:42:28 CDT CPT-J0696 Rocephin 1000 mg (Ceftriaxone) 17:43:43 [employer] CPT-J1040 Depo Medrol 80 mg (Methyl Prednisolone Acetate) 17:43: 43 [employer] CPT-J1100 Decadron 8mg (Dexamethasone) 17:43:42 [employer] CPT-06401 Abx/Therapy Injection 17:43:42 [employer] CPT-51740 Abx/Therapy Injection 17:43:42 [employer]OR CPT-J1040 Depo Medrol 80 mg (Methyl Prednisolone Acetate) 09:43: 34 [employer]OR CPT-J1100 Decadron 8mg (Dexamethasone) 09:43:34 [employer]OR CPT-J0696 Rocephin 1gm Inj Solr 09:43:34 [employer] CPT-34132 Wound Culture - LAB USE ONLY 14:00:21 CDT CPT-I/D I/D Abscess 09:16:37 CDT CPT-35435 Venipuncture Draw Fee 15:20:23 CDT CPT-44478 Microalbumin - LAB USE ONLY 16:02:19 CDT CPT-42239 CBC - LAB USE ONLY 16:02:19 CDT CPT-73404 Venipuncture Draw Fee 16:02:19 CDT CPT-G0438 Initial Annual Wellness Exam 08:10:28 CDT CPT-25200 Venipuncture Draw Fee 13:07:17 CDT CPT-G0008 Administration of Influenza Virus Vaccine 16:09:59 CDT CPT-57666 Fluzone Quadrivalent Intramuscular Suspension 0.5 ML 16: 09:59 CDT CPT-24173 Spec Collection and Handling Fee 15:05:50 CDT
--- OUTSIDE RECORDS SUMMARY | 2018-04-18 11:09 | XMS REPORT | Clinical Summary ---
Author Author Admin, [facility] Organization [facility] Address Unknown Phone Unavailable Allergies, Adverse [...] Patient Instruction CYCLOBENZAPRINE HCL 10 MG ORAL TABS 1 po TID PRN muscle spasm/pain for 10 days CYCLOBENZAPRINE HCL 07979771172 Active JONATHAN Moncada Active GUAIFENESIN 600 MG [id number] 1 tab po q am GUAIFENESIN 43243250439 Active Rober Rodríguez APRN Active FLUTICASONE PROPIONATE 50 MCG/ACT SUSP 2 sprays per nostril bid for 1 week, then 1 spray bid FLUTICASONE PROPIONATE 27384607545 Active Rober Rodríguez APRN Active HYDRALAZINE HCL 25 MG ORAL TABS Take 1 tab BID. HYDRALAZINE HCL 96136203734 Active Rober Rodríguez APRN Active VITAMIN D3 45791 UNIT ORAL TABS 2 po weekly CHOLECALCIFEROL 74742778375 Active JONATHAN Moncada Active OXYCODONE HCL ER 10 MG ORAL T12A 1 tab po 3 times qd. OXYCODONE HCL 87515545922 Active Robbie Busby MD Active NITROSTAT 0.4 MG SUBL PRN NITROGLYCERIN 84297179278 No Longer Active Robbie Busby MD Active LORATADINE 10 MG TABS 1 tablet by mouth daily for congestion and allergies. LORATADINE 65130180850 No Longer Active Robbie Busby MD Active FLONASE 50 MCG/ACT SUSP 1 spray each nostril twice daily for allergies and runny nose FLUTICASONE PROPIONATE 75556822096 No Longer Active Robbie Busby MD Active FIORICET 50-300-40 MG ORAL CAPS take 1 tab po qday prn migraines. [id number] 65935580493 No Longer Active Robbie Busby MD Active VITAMIN D3 80510 UNIT CAPS 2 CAPS PO WEEKLY CHOLECALCIFEROL 12745903171 No Longer Active Robbie Busby MD Active CYCLOBENZAPRINE HCL 10 MG TABS 1 tablet by mouth three times daily as needed for muscle spasm/pain for 10 days CYCLOBENZAPRINE HCL 94665609320 No Longer Active Robbie Busby MD Active PREDNISONE 20 MG TAB take 3 tabs daily for 3 days, 2 tabs daily for 3 days, 1 tab daily for 3 days, 1/2 tab daily for 4 days PREDNISONE 16980884536 No Longer Active Erin Garsia APRN Active CLONIDINE HCL 0.2 MG ORAL TABS 1 TAB BY MOUTH EVERY 8 HOURS 12/29 CLONIDINE HCL 74726585217 No Longer Active Erin Garsia APRN Active MECLIZINE HCL 25 MG TAB one 4 times a day as needed for dizziness MECLIZINE HCL 13271742117 No Longer Active Erin Garsia APRN Active SPIRONOLACTONE 25 MG TAB 4 tablets by mouth daily SPIRONOLACTONE 71010433590 No Longer Active Erin Garsia APRN Active LEVAQUIN 500 MG TAB 1 tablet by mouth daily for 7 days LEVOFLOXACIN 77180603512 No Longer Active Erin Garsia APRN Active BACTRIM DS 800-160 MG TAB 1 tab by mouth twice daily TRIMETHOPRIM-SULFAMETHOXAZOLE 58097672163 No Longer Active Robbie Busby MD Active HYDRALAZINE HCL 50 MG ORAL TABS TWO BY MOUTH THREE TIMES DAILY HYDRALAZINE HCL 04623780049 No Longer Active Jillina Frazell 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 Active HYDROCODONE-ACETAMINOPHEN 5-325 MG TABS 1 tab by mouth BID prn back pain 2013 HYDROCODONE-ACETAMINOPHEN 27006005874 No Longer Active Jillina Frazell 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 Active HYDROCHLOROTHIAZIDE TABS Take one by mouth daily HYDROCHLOROTHIAZIDE TABS 57417409561 No Longer Active Jillina Frazell 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 Active LAMISIL 125 MG ORAL PACK 1 TAB PO DAILY TERBINAFINE HCL 41195286251 No Longer Active 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 Frazell 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 Active TRILEPTAL 150 MG ORAL TABS 1 TAB PO Q HS OXCARBAZEPINE 57424452021 No Longer Active Jillina Frazell 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 Active BETADINE 10 % EXT SOLN 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 POVIDONE-IODINE 83043302928 No Longer Active Jillina Frazell 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 Active NYSTATIN 537475 UNIT/ML M/T SUSP 5mL po QID x 10 days NYSTATIN 03531368171 No Longer Active Erin Garsia APRN Active PREDNISONE 20 MG TAB 1 tablet twice daily for 2 days, then 1 tablet once daily for 2 days PREDNISONE 59240171990 No Longer Active Robbie Busby MD Active CEFDINIR 300 MG ORAL CAPS Take 1 cap po bid x 10 days CEFDINIR 78221747113 No Longer Active Robbie Busby MD Active AMLODIPINE BESYLATE 10 MG TABS 1 tablet by mouth daily AMLODIPINE BESYLATE 42647793227 Active Robbie Busby MD Active CARVEDILOL 25 MG TABS 1 & 1/2 TAB po BID CARVEDILOL 38680365339 Active Robbie Busby MD Active NEXIUM 40 MG CPDR 1 cap by mouth daily ESOMEPRAZOLE MAGNESIUM 52608402672 Active Robbie Busby MD Active PROTONIX 40 MG SOLR 1 po qday for acid reflux PANTOPRAZOLE SODIUM 83060612865 No Longer Active Gali Raida Active KEFLEX 500 MG CAP 1 po TID x 10 days CEPHALEXIN 89463021115 No Longer Active Robbie Busby MD Active TOPIRAMATE 50 MG ORAL TABS take 1 tab po BID for migraines. TOPIRAMATE 75903319187 Active Robbie Busby MD Active TEMAZEPAM 15 MG ORAL CAPS 1 TAB PO Q HS TEMAZEPAM 02532065088 Active Robbie Busby MD Active ALPRAZOLAM 2 MG ORAL TABS 1 TAB PO BID ALPRAZOLAM 50667028755 Active Robbie Busby MD Active FENOFIBRATE 145 MG TABS Take one by mouth daily FENOFIBRATE 78532772919 No Longer Active Robbie Busby MD Active SPIRONOLACTONE 50 MG TABS 1 tablet by mouth twice a day SPIRONOLACTONE 67568458209 No Longer Active Robbie Busby MD Active HYDRALAZINE HCL 25 MG TABS 1 tablet by mouth tid for hypertension HYDRALAZINE HCL 23807312246 No Longer Active Robbie Busby MD Active VIIBRYD 40 MG TABS take 1 tab po qday for depression. VILAZODONE HCL 70631383347 No Longer Active Robbie Busby MD Active TERBINAFINE HCL 250 MG TABS 1 tab po qday for foot infection 2014 TERBINAFINE HCL 77247648914 No Longer Active Robbie Busby MD Active GABAPENTIN 300 MG CAPS 1 po q hs for nerve pain GABAPENTIN 98157414790 Active Robbie Busby MD Active CHERATUSSIN AC 100-10 MG/5ML ORAL SOLN 7.5 mL PO q 4-6 hrs PRN cough GUAIFENESIN-CODEINE 99813159671 No Longer Active Robbie Busby MD Active AZITHROMYCIN 250 MG ORAL TABS 2 tablets PO today---then, 1 tablet PO daily x 4 more days (and 1 optional refill) AZITHROMYCIN 11915218831 No Longer Active Robbie Busby MD Active NORVASC 10 MG TAB 1 tablet by mouth daily AMLODIPINE BESYLATE 64743230928 No Longer Active Alex ALVAREZ Active IMDUR 60 MG TAB CR take 1 tab po qday for blood pressure ISOSORBIDE MONONITRATE Active Robbie Busby MD Active ISOSORBIDE DINITRATE 30 MG TABS Take one by mouth daily ISOSORBIDE DINITRATE 70980699388 No Longer Active Robbie Busby MD Active VIIBRYD 40 MG TABS 1 TA B PO DAILY VILAZODONE HCL 95970276575 Active Robbie Busby MD Active ZITHROMAX 250 MG TAB 2 po today, then 1 po q days 2-5 AZITHROMYCIN 41227710727 No Longer Active Robbie Busby MD Active [id number] 0.3 MG/24HR PTWK apply 2 patches q week for HTN CLONIDINE HCL 21841550471 Active Robbie Busby MD Active DOXAZOSIN MESYLATE 4 MG TABS Take one by mouth daily DOXAZOSIN MESYLATE 29309953578 Active Robbie Busby MD Active TOPROL XL 200 MG [id number] Take one by mouth daily METOPROLOL SUCCINATE 74925383289 Active Robbie Busby MD Active VENLAFAXINE HCL ER 150 MG [id number]-HKJ Take one by mouth daily VENLAFAXINE HCL 57057652211 Active Robbie Busby MD Active LIPITOR 40 MG TABS Take one by mouth daily ATORVASTATIN CALCIUM 57126569048 Active Robbie Busby MD Active ISOSORBIDE DINITRATE 30 MG TABS Take one by mouth daily ISOSORBIDE DINITRATE 30 MG TABS 865159 ISOSORBIDE DINITRATE Inactive NORVASC 10 MG TAB 1 tablet by mouth daily NORVASC 10 MG TAB 427209 AMLODIPINE BESYLATE Inactive AZITHROMYCIN 250 MG ORAL TABS 2 tablets PO today---then, 1 tablet PO daily x 4 more days (and 1 optional refill) AZITHROMYCIN 250 MG ORAL TABS 9966490 AZITHROMYCIN Inactive CHERATUSSIN AC 100-10 MG/5ML ORAL SOLN 7.5 mL PO q 4-6 hrs PRN cough CHERATUSSIN AC 100-10 MG/5ML ORAL SOLN 154045 GUAIFENESIN- CODEINE Inactive VIIBRYD 40 MG TABS take 1 tab po qday for depression. VIIBRYD 40 MG TABS VILAZODONE HCL Inactive HYDRALAZINE HCL 25 MG TABS 1 tablet by mouth tid for hypertension HYDRALAZINE HCL 25 MG TABS 160644 HYDRALAZINE HCL Inactive SPIRONOLACTONE 50 MG TABS 1 tablet by mouth twice a day SPIRONOLACTONE 50 MG TABS 248488 SPIRONOLACTONE Inactive FENOFIBRATE 145 MG TABS Take one by mouth daily FENOFIBRATE 145 MG TABS 765679 FENOFIBRATE Inactive PROTONIX 40 MG SOLR 1 po qday for acid reflux PROTONIX 40 MG SOLR 104330 PANTOPRAZOLE SODIUM Inactive CEFDINIR 300 MG ORAL CAPS Take 1 cap po bid x 10 days CEFDINIR 300 MG ORAL CAPS 336946 CEFDINIR Inactive PREDNISONE 20 MG TAB 1 tablet twice daily for 2 days, then 1 tablet once daily for 2 days PREDNISONE 20 MG TAB 319241 PREDNISONE Inactive NYSTATIN 981797 UNIT/ML M/T SUSP 5mL po QID x 10 days NYSTATIN 556383 UNIT/ML M/T SUSP 054487 NYSTATIN Inactive BETADINE 10 % EXT SOLN 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 BETADINE 10 % EXT SOLN 2216758 POVIDONE-IODINE Inactive TRILEPTAL 150 MG ORAL TABS 1 TAB PO Q HS TRILEPTAL 150 MG ORAL TABS 682049 OXCARBAZEPINE Inactive LAMISIL 125 MG ORAL PACK 1 TAB PO DAILY LAMISIL 125 MG ORAL PACK TERBINAFINE HCL Inactive HYDROCHLOROTHIAZIDE TABS Take one by mouth daily HYDROCHLOROTHIAZIDE TABS HYDROCHLOROTHIAZIDE TABS Inactive HYDROCODONE-ACETAMINOPHEN 5-325 MG TABS 1 tab by mouth BID prn back pain 2013 HYDROCODONE-ACETAMINOPHEN 5-325 MG TABS 231821 HYDROCODONE -ACETAMINOPHEN Inactive HYDRALAZINE HCL 50 MG ORAL TABS TWO BY MOUTH THREE TIMES DAILY HYDRALAZINE HCL 50 MG ORAL TABS 711398 HYDRALAZINE HCL Inactive LEVAQUIN 500 MG TAB 1 tablet by mouth daily for 7 days LEVAQUIN 500 MG TAB 719624 LEVOFLOXACIN Inactive SPIRONOLACTONE 25 MG TAB 4 tablets by mouth daily SPIRONOLACTONE 25 MG TAB 753085 SPIRONOLACTONE Inactive MECLIZINE HCL 25 MG TAB one 4 times a day as needed for dizziness MECLIZINE HCL 25 MG TAB 669423 MECLIZINE HCL Inactive CLONIDINE HCL 0.2 MG ORAL TABS 1 TAB BY MOUTH EVERY 8 HOURS 12/29 CLONIDINE HCL 0.2 MG ORAL TABS 103149 CLONIDINE HCL Inactive CYCLOBENZAPRINE HCL 10 MG TABS 1 tablet by mouth three times daily as needed for muscle spasm/pain for 10 days CYCLOBENZAPRINE HCL 10 MG TABS 630994 CYCLOBENZAPRINE HCL Inactive VITAMIN D3 74155 UNIT CAPS 2 CAPS PO WEEKLY VITAMIN D3 19001 UNIT CAPS CHOLECALCIFEROL Inactive FIORICET 50-300-40 MG ORAL CAPS take 1 tab po qday prn migraines. FIORICET 50-300-40 MG ORAL CAPS 460065 [id number] Inactive FLONASE 50 MCG/ACT SUSP 1 spray each nostril twice daily for allergies and runny nose FLONASE 50 MCG/ACT SUSP 1104928 FLUTICASONE PROPIONATE Inactive LORATADINE 10 MG TABS 1 tablet by mouth daily for congestion and allergies. LORATADINE 10 MG TABS 576921 LORATADINE Inactive NITROSTAT 0.4 MG SUBL PRN NITROSTAT 0.4 MG SUBL 404182 NITROGLYCERIN Inactive ZITHROMAX 250 MG TAB 2 po today, then 1 po q days 2-5 ZITHROMAX 250 MG TAB 2396298 AZITHROMYCIN Inactive TERBINAFINE HCL 250 MG TABS 1 tab po qday for foot infection 2014 TERBINAFINE HCL 250 MG TABS 988366 TERBINAFINE HCL Inactive KEFLEX 500 MG CAP 1 po TID x 10 days KEFLEX 500 MG CAP 462469 CEPHALEXIN Inactive BACTRIM DS 800-160 MG TAB 1 tab by mouth twice daily BACTRIM DS 800-160 MG TAB 931626 TRIMETHOPRIM-SULFAMETHOXAZOLE Inactive PREDNISONE 20 MG TAB take 3 tabs daily for 3 days, 2 tabs daily for 3 days, 1 tab daily for 3 days, 1/2 tab daily for 4 days PREDNISONE 20 MG TAB 627883 PREDNISONE Inactive Advance Directives Directive Description Start [...] temperature weight E&M 211.5 [lb_av] Weight Measured Diagnostic Results Date Name Value Unit Range Description Lab Report: CBC - Hematology mean corpuscular hemoglobin, RBC 30.4 pg 27.0-31.2 mean corpuscular hemoglobin concentration, RBC 33.9 G/DL % 31.8- 35.4 red blood cell distribution width 15.4 % 11.6-14.8 platelet count 229 10^3/MM^3 10*3/mm3 355-572 3088/09/06 mean corpuscular volume, RBC 90 fL 80-97 hematocrit, blood 42.4 % 41.0-53.0 hemoglobin, blood 14.4 g/dL 13.5-17.5 erythrocyte (RBC) count 4.72 10^6/MM^3 10*6/mm3 4.69-6.13 leukocyte count, blood 9.7 10^3/MM^3 10*3/mm3 4.6-10.2 Lab Report: CBC W/DIFF, Comp. Metabolic Panel, CKI, UADIP W/MICRO, AUTO - Chemistry sodium, serum 142 mmol/L 046-815 2247/07/17 carbon dioxide, venous blood 28.2 mmol/L 21.0-32.0 [...] Panel, CKI, UADIP W/MICRO, AUTO - Hematology mean corpuscular hemoglobin concentration, RBC 33.6 G/DL % 31.8- 35.4 red blood cell distribution width 13.6 % 11.6-14.8 platelet count 239 10^3/MM^3 10*3/mm3 038-548 4638/07/17 leukocyte count, blood 10.9 10^3/MM^3 10*3/mm3 4.6-10.2 [...] mean corpuscular hemoglobin, RBC 30.4 pg 27.0-31.2 Lab Report: CBC W/DIFF, Comp. Metabolic Panel, [...] Report: CBC-QUEST, COMPREHENSIVE METABOLIC PANEL - Hematology hemoglobin, blood 13.9 g/dL 13.2-17.1 erythrocyte (RBC) count 4.64 MILLION/UL 10*6/mm3 4.20-5.80 leukocyte count, blood 10.1 THOUSAND/UL 10*3/mm3 3.8-10.8 mean corpuscular volume, RBC 90.5 fL 80.0-100.0 mean corpuscular hemoglobin, RBC 29.9 pg 27.0-33.0 hematocrit, blood 42.0 % 38.5-50.0 mean corpuscular hemoglobin concentration, RBC 33.1 G/DL % 32.0- 36.0 red blood cell distribution width 15.8 % 11.0-15.0 platelet count 185 THOUSAND/UL 10*3/mm3 825-545 7463/04/14 mean platelet volume 10.9 fL 7.5-12.5 Lab Report: LIPID PANEL, TSH/899, T4, FREE/866 - Chemistry cholesterol, serum 220 mg/dL 914-817 2025/04/14 HDL cholesterol, serum 30 mg/dL > OR=40 triglyceride, serum, fasting 466 mg/dL <150 LDL cholesterol, serum SEE NOTE mg/dL (calc) mg/dL <130 cholesterol/HDL ratio, serum 7.3 (calc) < OR=5.0 Lab Report: MICROALB/CREAT W/RATIO - Chemistry albumin/creatinine ratio, urine < 30 mg/g mg/g{creat} 0-29 Lab Report: MICROALB/CREAT W/RATIO - Lab microalbumin, urine 80 0-19 Lab Report: VITAMIN D, 25-HYDROXY/52318 - Chemistry vitamin D 25-hydroxy, serum 25 ng/mL 30-100 Office Visit: Confusion, dizziness after fall - Basic LDL target level 130 mg/dL Office Visit: Confusion, dizziness after fall - Chemistry HDL cholesterol, serum, target level 40 mg/dL triglyceride, target level 150 mg/dL cholesterol, target level 200 mg/dL Encounters Code Encounter Date Provider Facility CPT-34033 Level 3 Est. Patient 09:00:37 CDT Rober Rodríguez [facility] CPT-21319 Level 3 Est. Patient 16:07:10 CDT Robbie Busby MD [facility] CPT-06696 Level 4 Est. Patient 11:56:16 CDT Erin Garsia [facility] CPT-82585 Level 3 Est. Patient 17:48:02 CDT Robbie Busby MD [facility] CPT-00296 Level 4 Est. Patient 12:00:49 [employer] Rober Rodríguez [facility] CPT-91093 Level 3 Est. Patient 09:16:37 CDT Robbie Busby MD [facility] CPT-71127 Level 3 Est. Patient 19:38:43 CDT Robbie Busby MD [facility] CPT-55664 Level 3 Est. Patient 11:53:38 CDT Robbie Busby MD [facility] CPT-72229 Level 4 Est. Patient 12:52:22 CDT Rober Rodríguez [facility] CPT-81736 Level 4 Est. Patient 22:55:17 CDT Robbie Busby MD [facility] CPT-84577 Level 3 Est. Patient 12:38:24 CDT Desmond Diaz DO [facility] CPT-34007 Level 4 Est. Patient 11:25:03 [employer] Robbie Busby MD [facility] CPT-76608 Level 4 Est. Patient 14:50:10 CDT Robbie Busby MD [facility] CPT-93656 Level 4 Est. Patient 23:30:43 CDT Robbie Busby MD [facility] CPT-99454 Level 4 Est. Patient 10:30:43 CDT Robbie Busby MD [facility] CPT-99861 Level 3 Est. Patient 17:08:12 CDT Alex ALVAREZ [facility] CPT-95455 Level 4 Est. Patient 17:51:38 CDT Robbie Busby MD [facility] CPT-74502 Level 4 Est. Patient 14:00:21 CDT Robbie Busby MD [facility] CPT-86281 Level 4 Est. Patient 12:46:48 CDT Robbie Busby MD [facility] CPT-75865 Level 4 Est. Patient 13:34:33 CDT Robbie Busby MD [facility] CPT-21744 Level 4 Est. Patient 16:58:28 CDT Robbie Busby MD [facility] CPT-58303 Level 3 Est. Patient 19:36:53 CDT Alex Shaw [facility] CPT-92611 Level 3 Est. Patient 12:58:15 CDT Robbie Busby MD [facility] Procedures Code Procedure Name Date Entry Date Standard Description CPT-83553 Venipuncture Draw Fee 14:39:06 CDT CPT-51873 Ribs unilateral 2V - XRAY USE ONLY 12:10:11 CDT CPT-29494 First Vx - Ix admin for Medicare patients 16:32:53 CDT CPT-81500 Boostrix Intramuscular Suspension 5-2.5-18.5 16:32:53 CDT CPT-79036 TB Skin Test 11:42:28 CDT CPT-56363 Tdap 7yrs or > 11:42:28 CDT CPT-J0696 Rocephin 1000 mg (Ceftriaxone) 17:43:43 [employer] CPT-J1040 Depo Medrol 80 mg (Methyl Prednisolone Acetate) 17:43: 43 [employer]AIL [employer] OPER[employer] CPT-J1100 Decadron 8mg (Dexamethasone) 17:43:42 [employer]AIL CAR OPER[employer] CPT-50753 Abx/Therapy Injection 17:43:42 [employer]AIL CAR 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 CPT-77395 Abx/Therapy Injection 17:43:42 [employer]AIL CAR OPERATOR CPT-J1040 Depo Medrol 80 mg (Methyl Prednisolone Acetate) 09:43: 34 [employer]AIL CAR OPERATOR CPT-J1100 Decadron 8mg (Dexamethasone) 09:43:34 [employer]AIL CAR OPERATOR CPT-J0696 Rocephin 1gm Inj Solr 09:43:34 [employer]AIL CAR OPER[employer] CPT-13952 Wound Culture - LAB USE ONLY 14:00:21 CDT CPT-I/D I/D Abscess 09:16:37 CDT CPT-89008 Venipuncture Draw Fee 15:20:23 CDT CPT-42399 Microalbumin - LAB USE ONLY 16:02:19 CDT CPT-33972 CBC - LAB USE ONLY 16:02:19 CDT CPT-56797 Venipuncture Draw Fee 16:02:19 CDT CPT-G0438 Initial Annual Wellness Exam 08:10:28 CDT CPT-88891 Venipuncture Draw Fee 13:07:17 CDT CPT-G0008 Administration of Influenza Virus Vaccine 16:09:59 CDT CPT-19888 Fluzone Quadrivalent Intramuscular Suspension 0.5 ML 16: 09:59 CDT CPT-03283 Spec Collection and Handling Fee 15:05:50 CDT
--- OUTSIDE RECORDS SUMMARY | 2018-04-18 11:10 | XMS REPORT | Clinical Summary ---
Author Author Admin, AKUA Organization 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 Rober Rodríguez [employer] Other malignant secondary hypertension Tachycardia 785.0 Active [...] site Hypogonadism, low testosterone 257.2 Active Erin Grasia APRN Other testicular hypofunction Medication List Medication Instructions Start Date Stop Date Generic Name NDC Status Provider Patient Instruction DEPO-TESTOSTERONE 200 MG/ML IM SOLN 1 IM Injections every 2 weeks for low testosterone TESTOSTERONE CYPIONATE 11980499214 Active Zulema Blank LPN Active CYCLOBENZAPRINE HCL 10 MG ORAL TABS 1 po TID PRN muscle spasm/pain for 10 days CYCLOBENZAPRINE HCL 92727699918 Active JONATHAN Moncada Active GUAIFENESIN 600 MG [id number] 1 tab po q am GUAIFENESIN 06008909450 Active Jillina Anne GONZALEZN Active FLUTICASONE PROPIONATE 50 MCG/ACT SUSP 2 sprays per nostril bid for 1 week, then 1 spray bid FLUTICASONE PROPIONATE 85090726766 Active Jillina Anne GONZALEZN Active HYDRALAZINE HCL 25 MG ORAL TABS Take 1 tab BID. HYDRALAZINE HCL 05030213851 Active Jillina Anne GONZALEZN Active VITAMIN D3 43618 UNIT ORAL TABS 2 po weekly CHOLECALCIFEROL 84756841267 Active Robbie Busby MD Active OXYCODONE HCL ER 10 MG ORAL T12A 1 tab po 3 times qd. OXYCODONE HCL 15235885715 Active Robbie Busby MD Active NITROSTAT 0.4 MG SUBL PRN NITROGLYCERIN 99567663457 No Longer Active Robbie Busby MD Active LORATADINE 10 MG TABS 1 tablet by mouth daily for congestion and allergies. LORATADINE 18593464236 No Longer Active Robbie Busby MD Active FLONASE 50 MCG/ACT SUSP 1 spray each nostril twice daily for allergies and runny nose FLUTICASONE PROPIONATE 64408229389 No Longer Active Robbie Busby MD Active FIORICET 50-300-40 MG ORAL CAPS take 1 tab po qday prn migraines. GIPGZUPRUH-RIOU-EQESRICS 51048289787 No Longer Active Robbie Busby MD Active VITAMIN D3 74977 UNIT CAPS 2 CAPS PO WEEKLY CHOLECALCIFEROL 39144938539 No Longer Active Robbie Busby MD Active CYCLOBENZAPRINE HCL 10 MG TABS 1 tablet by mouth three times daily as needed for muscle spasm/pain for 10 days CYCLOBENZAPRINE HCL 73921145390 No Longer Active Robbie Busby MD Active PREDNISONE 20 MG TAB take 3 tabs daily for 3 days, 2 tabs daily for 3 days, 1 tab daily for 3 days, 1/2 tab daily for 4 days PREDNISONE 60951366545 No Longer Active Erin Garsia APRN Active CLONIDINE HCL 0.2 MG ORAL TABS 1 TAB BY MOUTH EVERY 8 HOURS 12/29 CLONIDINE HCL 13210323546 No Longer Active Erin Garsia APRN Active MECLIZINE HCL 25 MG TAB one 4 times a day as needed for dizziness MECLIZINE HCL 57203892681 No Longer Active Erin Garsia APRN Active SPIRONOLACTONE 25 MG TAB 4 tablets by mouth daily SPIRONOLACTONE 81643172232 No Longer Active Erin Garsia APRN Active LEVAQUIN 500 MG TAB 1 tablet by mouth daily for 7 days LEVOFLOXACIN 31706887556 No Longer Active Erin Garsia APRN Active BACTRIM DS 800-160 MG TAB 1 tab by mouth twice daily TRIMETHOPRIM-SULFAMETHOXAZOLE 41980907242 No Longer Active Robbie Busby MD Active HYDRALAZINE HCL 50 MG ORAL TABS TWO BY MOUTH THREE TIMES DAILY HYDRALAZINE HCL 47109564934 No Longer Active Andrellina Anne GONZALEZN Active HYDROCODONE-ACETAMINOPHEN 5-325 MG TABS 1 tab by mouth BID prn back pain 2013 HYDROCODONE-ACETAMINOPHEN 65857580418 No Longer Active Jillina Frazell [employer] Active HYDROCHLOROTHIAZIDE TABS Take one by mouth daily HYDROCHLOROTHIAZIDE TABS 94316309912 No Longer Active Jillina Frazell [employer] Active LAMISIL 125 MG ORAL PACK 1 TAB PO DAILY TERBINAFINE HCL 22915697977 No Longer Active Jillina Frazell [employer] Active TRILEPTAL 150 MG ORAL TABS 1 TAB PO Q HS OXCARBAZEPINE 03905018824 No Longer Active Jillina Frazell [employer] Active BETADINE 10 % EXT SOLN 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 POVIDONE-IODINE 56834693086 No Longer Active Jillina Frazell [employer] Active NYSTATIN 271431 UNIT/ML M/T SUSP 5mL po QID x 10 days NYSTATIN 83201678372 No Longer Active Erin Garsia APRN Active PREDNISONE 20 MG TAB 1 tablet twice daily for 2 days, then 1 tablet once daily for 2 days PREDNISONE 30580147145 No Longer Active Robbie Busby MD Active CEFDINIR 300 MG ORAL CAPS Take 1 cap po bid x 10 days CEFDINIR 52614154208 No Longer Active Robbie Busby MD Active AMLODIPINE BESYLATE 10 MG TABS 1 tablet by mouth daily AMLODIPINE BESYLATE 85306697575 Active Robbie Busby MD Active CARVEDILOL 25 MG TABS 1 & 1/2 TAB po BID CARVEDILOL 63514004492 Active Robbie Busby MD Active NEXIUM 40 MG CPDR 1 cap by mouth daily ESOMEPRAZOLE MAGNESIUM 94253089762 Active Robbie Busby MD Active PROTONIX 40 MG SOLR 1 po qday for acid reflux PANTOPRAZOLE SODIUM 13410656569 No Longer Active Gali Raida Active KEFLEX 500 MG CAP 1 po TID x 10 days CEPHALEXIN 88579363212 No Longer Active Robbie Busby MD Active TOPIRAMATE 50 MG ORAL TABS take 1 tab po BID for migraines. TOPIRAMATE 71144125271 Active Robbie Busby MD Active TEMAZEPAM 15 MG ORAL CAPS 1 TAB PO Q HS TEMAZEPAM 27475451857 Active Robbie Busby MD Active ALPRAZOLAM 2 MG ORAL TABS 1 TAB PO BID ALPRAZOLAM 20247487869 Active Robbie Busby MD Active FENOFIBRATE 145 MG TABS Take one by mouth daily FENOFIBRATE 31627755539 No Longer Active Robbie Busby MD Active SPIRONOLACTONE 50 MG TABS 1 tablet by mouth twice a day SPIRONOLACTONE 09805662424 No Longer Active Robbie Busby MD Active HYDRALAZINE HCL 25 MG TABS 1 tablet by mouth tid for hypertension HYDRALAZINE HCL 09389286210 No Longer Active Robbie Busby MD Active VIIBRYD 40 MG TABS take 1 tab po qday for depression. VILAZODONE HCL 04628919846 No Longer Active Robbie Busby MD Active TERBINAFINE HCL 250 MG TABS 1 tab po qday for foot infection 2014 TERBINAFINE HCL 10104481844 No Longer Active Robbie Busby MD Active GABAPENTIN 300 MG CAPS 1 po q hs for nerve pain GABAPENTIN 68317637932 Active Robbie Busby MD Active CHERATUSSIN AC 100-10 MG/5ML ORAL SOLN 7.5 mL PO q 4-6 hrs PRN cough GUAIFENESIN-CODEINE 79400922315 No Longer Active Robbie Busby MD Active AZITHROMYCIN 250 MG ORAL TABS 2 tablets PO today---then, 1 tablet PO daily x 4 more days (and 1 optional refill) AZITHROMYCIN 44161665173 No Longer Active Robbie Busby MD Active NORVASC 10 MG TAB 1 tablet by mouth daily AMLODIPINE BESYLATE 52564636756 No Longer Active Alex ALVAREZ Active IMDUR 60 MG TAB CR take 1 tab po qday for blood pressure ISOSORBIDE MONONITRATE Active Robbie Busby MD Active ISOSORBIDE DINITRATE 30 MG TABS Take one by mouth daily ISOSORBIDE DINITRATE 50883246066 No Longer Active Robbie Busby MD Active VIIBRYD 40 MG TABS 1 TA B PO DAILY VILAZODONE HCL 57822040535 Active Robbie Busby MD Active ZITHROMAX 250 MG TAB 2 po today, then 1 po q days 2-5 AZITHROMYCIN 86818766876 No Longer Active Robbie Busby MD Active [id number]-[id number]-7 0.3 MG/24HR PTWK apply 2 patches q week for HTN CLONIDINE HCL 81261851932 Active Robbie Busby MD Active DOXAZOSIN MESYLATE 4 MG TABS Take one by mouth daily DOXAZOSIN MESYLATE 35385908081 Active Robbie Busby MD Active TOPROL XL 200 MG [id number] Take one by mouth daily METOPROLOL SUCCINATE 77146917712 Active Robbie Busby MD Active VENLAFAXINE HCL ER 150 MG HG90E-IQM Take one by mouth daily VENLAFAXINE HCL 64585836989 Active Robbie Busby MD Active LIPITOR 40 MG TABS Take one by mouth daily ATORVASTATIN CALCIUM 53777603203 Active Robbie Busby MD Active ISOSORBIDE DINITRATE 30 MG TABS Take one by mouth daily ISOSORBIDE DINITRATE 30 MG TABS 130420 ISOSORBIDE DINITRATE Inactive NORVASC 10 MG TAB 1 tablet by mouth daily NORVASC 10 MG TAB 760022 AMLODIPINE BESYLATE Inactive AZITHROMYCIN 250 MG ORAL TABS 2 tablets PO today---then, 1 tablet PO daily x 4 more days (and 1 optional refill) AZITHROMYCIN 250 MG ORAL TABS 1035960 AZITHROMYCIN Inactive CHERATUSSIN AC 100-10 MG/5ML ORAL SOLN 7.5 mL PO q 4-6 hrs PRN cough CHERATUSSIN AC 100-10 MG/5ML ORAL SOLN 256488 GUAIFENESIN- CODEINE Inactive VIIBRYD 40 MG TABS take 1 tab po qday for depression. VIIBRYD 40 MG TABS VILAZODONE HCL Inactive HYDRALAZINE HCL 25 MG TABS 1 tablet by mouth tid for hypertension HYDRALAZINE HCL 25 MG TABS 177181 HYDRALAZINE HCL Inactive SPIRONOLACTONE 50 MG TABS 1 tablet by mouth twice a day SPIRONOLACTONE 50 MG TABS 411974 SPIRONOLACTONE Inactive FENOFIBRATE 145 MG TABS Take one by mouth daily FENOFIBRATE 145 MG TABS 458050 FENOFIBRATE Inactive PROTONIX 40 MG SOLR 1 po qday for acid reflux PROTONIX 40 MG SOLR 387924 PANTOPRAZOLE SODIUM Inactive CEFDINIR 300 MG ORAL CAPS Take 1 cap po bid x 10 days CEFDINIR 300 MG ORAL CAPS 639504 CEFDINIR Inactive PREDNISONE 20 MG TAB 1 tablet twice daily for 2 days, then 1 tablet once daily for 2 days PREDNISONE 20 MG TAB 730615 PREDNISONE Inactive NYSTATIN 618761 UNIT/ML M/T SUSP 5mL po QID x 10 days NYSTATIN 206996 UNIT/ML M/T SUSP 117977 NYSTATIN Inactive BETADINE 10 % EXT SOLN 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 BETADINE 10 % EXT SOLN 1172162 POVIDONE-IODINE Inactive TRILEPTAL 150 MG ORAL TABS 1 TAB PO Q HS TRILEPTAL 150 MG ORAL TABS 740524 OXCARBAZEPINE Inactive LAMISIL 125 MG ORAL PACK 1 TAB PO DAILY LAMISIL 125 MG ORAL PACK TERBINAFINE HCL Inactive HYDROCHLOROTHIAZIDE TABS Take one by mouth daily HYDROCHLOROTHIAZIDE TABS HYDROCHLOROTHIAZIDE TABS Inactive HYDROCODONE-ACETAMINOPHEN 5-325 MG TABS 1 tab by mouth BID prn back pain 2013 HYDROCODONE-ACETAMINOPHEN 5-325 MG TABS 393489 HYDROCODONE -ACETAMINOPHEN Inactive HYDRALAZINE HCL 50 MG ORAL TABS TWO BY MOUTH THREE TIMES DAILY HYDRALAZINE HCL 50 MG ORAL TABS 998360 HYDRALAZINE HCL Inactive LEVAQUIN 500 MG TAB 1 tablet by mouth daily for 7 days LEVAQUIN 500 MG TAB 215177 LEVOFLOXACIN Inactive SPIRONOLACTONE 25 MG TAB 4 tablets by mouth daily SPIRONOLACTONE 25 MG TAB 165801 SPIRONOLACTONE Inactive MECLIZINE HCL 25 MG TAB one 4 times a day as needed for dizziness MECLIZINE HCL 25 MG TAB 368424 MECLIZINE HCL Inactive CLONIDINE HCL 0.2 MG ORAL TABS 1 TAB BY MOUTH EVERY 8 HOURS 12/29 CLONIDINE HCL 0.2 MG ORAL TABS 061979 CLONIDINE HCL Inactive CYCLOBENZAPRINE HCL 10 MG TABS 1 tablet by mouth three times daily as needed for muscle spasm/pain for 10 days CYCLOBENZAPRINE HCL 10 MG TABS 461563 CYCLOBENZAPRINE HCL Inactive VITAMIN D3 01785 UNIT CAPS 2 CAPS PO WEEKLY VITAMIN D3 35200 UNIT CAPS CHOLECALCIFEROL Inactive FIORICET 50-300-40 MG ORAL CAPS take 1 tab po qday prn migraines. FIORICET 50-300-40 MG ORAL CAPS 657018 [id number] Inactive FLONASE 50 MCG/ACT SUSP 1 spray each nostril twice daily for allergies and runny nose FLONASE 50 MCG/ACT SUSP 9314444 FLUTICASONE PROPIONATE Inactive LORATADINE 10 MG TABS 1 tablet by mouth daily for congestion and allergies. LORATADINE 10 MG TABS 342450 LORATADINE Inactive NITROSTAT 0.4 MG SUBL PRN NITROSTAT 0.4 MG SUBL 388887 NITROGLYCERIN Inactive ZITHROMAX 250 MG TAB 2 po today, then 1 po q days 2-5 ZITHROMAX 250 MG TAB 9270556 AZITHROMYCIN Inactive TERBINAFINE HCL 250 MG TABS 1 tab po qday for foot infection 2014 TERBINAFINE HCL 250 MG TABS 889301 TERBINAFINE HCL Inactive KEFLEX 500 MG CAP 1 po TID x 10 days KEFLEX 500 MG CAP 399542 CEPHALEXIN Inactive BACTRIM DS 800-160 MG TAB 1 tab by mouth twice daily BACTRIM DS 800-160 MG TAB 272233 TRIMETHOPRIM-SULFAMETHOXAZOLE Inactive PREDNISONE 20 MG TAB take 3 tabs daily for 3 days, 2 tabs daily for 3 days, 1 tab daily for 3 days, 1/2 tab daily for 4 days PREDNISONE 20 MG TAB 932665 PREDNISONE Inactive Advance Directives Directive Description Start [...] AUTO - Chemistry sodium, serum 142 mmol/L 855-794 6091/07/17 carbon dioxide, venous blood 28.2 mmol/L 21.0-32.0 [...] % 11.0-15.0 platelet count 185 THOUSAND/UL 10*3/mm3 854-955 2552/04/14 mean platelet volume 10.9 fL 7.5-12.5 Lab Report: LIPID PANEL, TSH/899, T4, FREE/866 - Chemistry cholesterol, serum 220 mg/dL 555-225 7129/04/14 HDL cholesterol, serum 30 mg/dL > OR=40 [...] 1.80 ng/mL 0.00-4.00 Lab Report: VITAMIN D, 25-HYDROXY/23757 - Chemistry vitamin D 25-hydroxy, serum 25 ng/mL 30-100 Office Visit: Confusion, dizziness after fall - Basic LDL target level 130 mg/dL Office Visit: Confusion, dizziness after fall - Chemistry HDL cholesterol, serum, target level 40 mg/dL triglyceride, target level 150 mg/dL cholesterol, target level 200 mg/dL Encounters Code Encounter Date Provider Facility CPT-10612 Level 4 Est. Patient 15:18:19 CDT Robbie Busby MD [facility] CPT-34653 Level 3 Est. Patient 09:00:37 CDT Rober Rodríguez [facility] CPT-17788 Level 3 Est. Patient 16:07:10 CDT Robbie Busby MD [facility] CPT-49178 Level 4 Est. Patient 11:56:16 CDT Erin Garsia [facility] CPT-67827 Level 3 Est. Patient 17:48:02 CDT Robbie Busby MD [facility] CPT-45761 Level 4 Est. Patient 12:00:49 [employer] Rober Rodríguez [facility] CPT-63836 Level 3 Est. Patient 09:16:37 CDT Robbie Busby MD [facility] CPT-78866 Level 3 Est. Patient 19:38:43 CDT Robbie Busby MD [facility] CPT-15007 Level 3 Est. Patient 11:53:38 CDT Robbie Busby MD [facility] CPT-33998 Level 4 Est. Patient 12:52:22 CDT Rober Rodríguez [facility] CPT-17530 Level 4 Est. Patient 22:55:17 CDT Robbie Busby MD [facility] CPT-71977 Level 3 Est. Patient 12:38:24 CDT Desmond Diaz DO [facility] CPT-14612 Level 4 Est. Patient 11:25:03 CUSHION [employer] Robbie Busby MD [facility] CPT-24000 Level 4 Est. Patient 14:50:10 CDT Robbie Busby MD [facility] CPT-31721 Level 4 Est. Patient 23:30:43 CDT Robbie Busby MD [facility] CPT-16355 Level 4 Est. Patient 10:30:43 CDT Robbie Busby MD [facility] CPT-44560 Level 3 Est. Patient 17:08:12 CDT Alex ALVAREZ [facility] CPT-93891 Level 4 Est. Patient 17:51:38 CDT Robbie Busby MD [facility] CPT-01834 Level 4 Est. Patient 14:00:21 CDT Robbie Busby MD [facility] CPT-53564 Level 4 Est. Patient 12:46:48 CDT Robbie Busby MD [facility] CPT-76610 Level 4 Est. Patient 13:34:33 CDT Robbie Busby MD [facility] CPT-24450 Level 4 Est. Patient 16:58:28 CDT Robbie Busby MD [facility] CPT-85709 Level 3 Est. Patient 19:36:53 CDT Alex ALVAREZ [facility] CPT-00393 Level 3 Est. Patient 12:58:15 CDT Robbie Busby MD [facility] Procedures Code Procedure Name Date Entry Date Standard Description CPT-J1071 Depo Testosterone 200mg 09:03:53 CDT CPT-93393 Abx/Therapy Injection 09:03:53 CDT CPT-G0439 [facility] Annual Wellness Exam 16:47:44 CDT CPT-J1071 Depo Testosterone 200mg 09:06:28 CDT CPT-97523 Abx/Therapy Injection 09:06:28 CDT CPT-J1071 Depo Testosterone 200mg 08:30:01 CDT CPT-35301 Abx/Therapy Injection 08:30:01 CDT CPT-J1071 Depo Testosterone 200mg 08:24:00 CDT CPT-97017 Abx/Therapy Injection 08:24:00 CDT CPT-35471 Venipuncture Draw Fee 14:39:06 CDT CPT-16465 Ribs unilateral 2V - XRAY USE ONLY 12:10:11 CDT CPT-36649 First Vx - Ix admin for Medicare patients 16:32:53 CDT CPT-66135 Boostrix Intramuscular Suspension 5-2.5-18.5 16:32:53 CDT CPT-72678 TB Skin Test 11:42:28 CDT CPT-91959 Tdap 7yrs or > 11:42:28 CDT CPT-J0696 Rocephin 1000 mg (Ceftriaxone) 17:43:43 CUSHION SEWER CPT-J1040 Depo Medrol 80 mg (Methyl Prednisolone Acetate) 17:43: 43 CUSHION SEWER CPT-J1100 Decadron 8mg (Dexamethasone) 17:43:42 CUSHION SEWER CPT-65956 Abx/Therapy Injection 17:43:42 CUSHION SEWER CPT-06413 Abx/Therapy Injection 17:43:42 CUSHION SEWER CPT-J1040 Depo Medrol 80 mg (Methyl Prednisolone Acetate) 09:43: 34 [employer] SE[employer] CPT-J1100 Decadron 8mg (Dexamethasone) 09:43:34 CUSHION SEWER CPT-J0696 Rocephin 1gm Inj Solr 09:43:34 CUSHION SEW[employer] CPT-46738 Wound Culture - LAB USE ONLY 14:00:21 CDT CPT-I/D I/D Abscess 09:16:37 CDT CPT-01679 Venipuncture Draw Fee 15:20:23 CDT CPT-89257 Microalbumin - LAB USE ONLY 16:02:19 CDT CPT-88437 CBC - LAB USE ONLY 16:02:19 CDT CPT-18203 Venipuncture Draw Fee 16:02:19 CDT CPT-G0438 Initial Annual Wellness Exam 08:10:28 CDT CPT-44651 Venipuncture Draw Fee 13:07:17 CDT CPT-G0008 Administration of Influenza Virus Vaccine 16:09:59 CDT CPT-36434 Fluzone Quadrivalent Intramuscular Suspension 0.5 ML 16: 09:59 CDT CPT-76607 Spec Collection and Handling Fee 15:05:50 CDT
--- OUTSIDE RECORDS SUMMARY | 2018-04-18 11:11 | XMS REPORT | Clinical Summary ---
Author Author Admin, E Organization [facility] Address Unknown Phone Unavailable Allergies, Adverse [...] Lumbago Low back pain, chronic 724.2 Active oRbbie Busby MD Lumbago Degenerative arthritis 715.90 Active [...] sites, infected Abscess, skin 682.9 Active Robbie Bubsy MD Cellulitis and abscess of unspecified sites [...] muscle spasm/pain for 10 days CYCLOBENZAPRINE HCL 49782246789 Active Erin Garsia APRN Active PREDNISONE 20 MG TAB take 3 tabs daily for 3 days, 2 tabs daily for 3 days, 1 tab daily for 3 days, 1/2 tab daily for 4 days PREDNISONE 13209288373 No Longer Active Erin Garsia APRN Active CLONIDINE HCL 0.2 MG ORAL TABS 1 TAB BY MOUTH EVERY 8 HOURS 12/29 CLONIDINE HCL 67798004793 No Longer Active Erin Garsia APRN Active MECLIZINE HCL 25 MG TAB one 4 times a day as needed for dizziness MECLIZINE HCL 87073469529 No Longer Active Erin Garsia APRN Active SPIRONOLACTONE 25 MG TAB 4 tablets by mouth daily SPIRONOLACTONE 85329354760 No Longer Active Erin Garsia APRN Active LEVAQUIN 500 MG TAB 1 tablet by mouth daily for 7 days LEVOFLOXACIN 24297644337 No Longer Active Erin Garsia APRN Active BACTRIM DS 800-160 MG TAB 1 tab by mouth twice daily TRIMETHOPRIM-SULFAMETHOXAZOLE 69334694399 No Longer Active Robbie Busby MD Active HYDRALAZINE HCL 50 MG ORAL TABS TWO BY MOUTH THREE TIMES DAILY HYDRALAZINE HCL 23489249977 No Longer Active Jillina Frazell HAT CLEANER Active HYDROCODONE-ACETAMINOPHEN 5-325 MG TABS 1 tab by mouth BID prn back pain 2013 HYDROCODONE-ACETAMINOPHEN 24385765393 No Longer Active Jillina Frazell HAT CLEANER Active HYDROCHLOROTHIAZIDE TABS Take one by mouth daily HYDROCHLOROTHIAZIDE TABS 67778007079 No Longer Active Jillina Frazell HAT CLEANER Active LAMISIL 125 MG ORAL PACK 1 TAB PO DAILY TERBINAFINE HCL 87908141321 No Longer Active Jillina Frazell HAT CLEANER Active TRILEPTAL 150 MG ORAL TABS 1 TAB PO Q HS OXCARBAZEPINE 82172173444 No Longer Active Jillina Frazell HAT CLEANER Active BETADINE 10 % EXT SOLN 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 POVIDONE-IODINE 63145374948 No Longer Active Jillina Frazell HAT CLEANER Active NYSTATIN 083423 UNIT/ML M/T SUSP 5mL po QID x 10 days NYSTATIN 44617335003 No Longer Active Erin Garsia APRN Active PREDNISONE 20 MG TAB 1 tablet twice daily for 2 days, then 1 tablet once daily for 2 days PREDNISONE 63562907882 No Longer Active Robbie Busby MD Active CEFDINIR 300 MG ORAL CAPS Take 1 cap po bid x 10 days CEFDINIR 28185434636 No Longer Active Robbie Busby MD Active AMLODIPINE BESYLATE 10 MG TABS 1 tablet by mouth daily AMLODIPINE BESYLATE 28094623021 Active Robbie Busby MD Active CARVEDILOL 25 MG TABS 1 & 1/2 TAB po BID CARVEDILOL 90253487845 Active Robbie Busby MD Active VITAMIN D3 73531 UNIT CAPS 2 CAPS PO WEEKLY CHOLECALCIFEROL 48591284795 Active Erin Garsia APRN Active NEXIUM 40 MG CPDR 1 cap by mouth daily ESOMEPRAZOLE MAGNESIUM 03464678265 Active Robbie Busby MD Active PROTONIX 40 MG SOLR 1 po qday for acid reflux PANTOPRAZOLE SODIUM 55053160727 No Longer Active Gali Raida Active KEFLEX 500 MG CAP 1 po TID x 10 days CEPHALEXIN 40126750972 No Longer Active Robbie Busby MD Active FIORICET 50-300-40 MG ORAL CAPS take 1 tab po qday prn migraines. [id number] 70903493838 Active Robbie Busby MD Active TOPIRAMATE 50 MG ORAL TABS take 1 tab po BID for migraines. TOPIRAMATE 73027597524 Active Robbie Busby MD Active TEMAZEPAM 15 MG ORAL CAPS 1 TAB PO Q HS TEMAZEPAM 41156598220 Active Robbie Busby MD Active ALPRAZOLAM 2 MG ORAL TABS 1 TAB PO BID ALPRAZOLAM 02098886012 Active Robbie Busby MD Active FENOFIBRATE 145 MG TABS Take one by mouth daily FENOFIBRATE 78270803344 No Longer Active Robbie Busby MD Active SPIRONOLACTONE 50 MG TABS 1 tablet by mouth twice a day SPIRONOLACTONE 47309043419 No Longer Active Robbie Busby MD Active HYDRALAZINE HCL 25 MG TABS 1 tablet by mouth tid for hypertension HYDRALAZINE HCL 52434994575 No Longer Active Robbie Busby MD Active VIIBRYD 40 MG TABS take 1 tab po qday for depression. VILAZODONE HCL 65228495364 No Longer Active Robbie Busby MD Active TERBINAFINE HCL 250 MG TABS 1 tab po qday for foot infection 2014 TERBINAFINE HCL 17819979023 No Longer Active Robbie Busby MD Active GABAPENTIN 300 MG CAPS 1 po q hs for nerve pain GABAPENTIN 17446305920 Active Robbie Busby MD Active FLONASE 50 MCG/ACT SUSP 1 spray each nostril twice daily for allergies and runny nose FLUTICASONE PROPIONATE 36841087087 Active Robbie Busby MD Active CHERATUSSIN AC 100-10 MG/5ML ORAL SOLN 7.5 mL PO q 4-6 hrs PRN cough GUAIFENESIN-CODEINE 56659035185 No Longer Active Robbie Busby MD Active AZITHROMYCIN 250 MG ORAL TABS 2 tablets PO today---then, 1 tablet PO daily x 4 more days (and 1 optional refill) AZITHROMYCIN 17734011219 No Longer Active Robbie Busby MD Active NORVASC 10 MG TAB 1 tablet by mouth daily AMLODIPINE BESYLATE 44605264169 No Longer Active Alex ALVAREZ Active IMDUR 60 MG TAB CR take 1 tab po qday for blood pressure ISOSORBIDE MONONITRATE Active Robbie Busby MD Active ISOSORBIDE DINITRATE 30 MG TABS Take one by mouth daily ISOSORBIDE DINITRATE 78317043849 No Longer Active Robbie Busby MD Active VIIBRYD 40 MG TABS 1 TA B PO DAILY VILAZODONE HCL 12934502318 Active Robbie Busby MD Active LORATADINE 10 MG TABS 1 tablet by mouth daily for congestion and allergies. LORATADINE 34751069020 Active Robbie Busby MD Active ZITHROMAX 250 MG TAB 2 po today, then 1 po q days 2-5 AZITHROMYCIN 95051324569 No Longer Active Robbie Busby MD Active ULOXCPGX-VUN-3 0.3 MG/24HR PTWK apply 2 patches q week for HTN CLONIDINE HCL 04124286172 Active Robbie Busby MD Active NITROSTAT 0.4 MG SUBL PRN NITROGLYCERIN 68487410739 Active Robbie Busby MD Active DOXAZOSIN MESYLATE 4 MG TABS Take one by mouth daily DOXAZOSIN MESYLATE 00712733286 Active Erin Garsia HAT CLEANER Active TOPROL XL 200 MG [id number] Take one by mouth daily METOPROLOL SUCCINATE 27118156811 Active Robbie Busby MD Active VENLAFAXINE HCL ER 150 MG [id number] Take one by mouth daily VENLAFAXINE HCL 67025352850 Active Robbie Busby MD Active LIPITOR 40 MG TABS Take one by mouth daily ATORVASTATIN CALCIUM 06457793567 Active Robbie Busby MD Active HYDROCHLOROTHIAZIDE TABS Take one by mouth daily HYDROCHLOROTHIAZIDE TABS HYDROCHLOROTHIAZIDE TABS Inactive BACTRIM DS 800-160 MG TAB 1 tab by mouth twice daily BACTRIM DS 800-160 MG TAB 219399 TRIMETHOPRIM-SULFAMETHOXAZOLE Inactive BETADINE 10 % EXT SOLN 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 BETADINE 10 % EXT SOLN 0087144 POVIDONE-IODINE Inactive CLONIDINE HCL 0.2 MG ORAL TABS 1 TAB BY MOUTH EVERY 8 HOURS 12/29 CLONIDINE HCL 0.2 MG ORAL TABS 865562 CLONIDINE HCL Inactive HYDRALAZINE HCL 25 MG TABS 1 tablet by mouth tid for hypertension HYDRALAZINE HCL 25 MG TABS 578594 HYDRALAZINE HCL Inactive HYDRALAZINE HCL 50 MG ORAL TABS TWO BY MOUTH THREE TIMES DAILY HYDRALAZINE HCL 50 MG ORAL TABS 965700 HYDRALAZINE HCL Inactive ISOSORBIDE DINITRATE 30 MG TABS Take one by mouth daily ISOSORBIDE DINITRATE 30 MG TABS 427750 ISOSORBIDE DINITRATE Inactive KEFLEX 500 MG CAP 1 po TID x 10 days KEFLEX 500 MG CAP 991470 CEPHALEXIN Inactive NORVASC 10 MG TAB 1 tablet by mouth daily NORVASC 10 MG TAB 946316 AMLODIPINE BESYLATE Inactive NYSTATIN 597015 UNIT/ML M/T SUSP 5mL po QID x 10 days NYSTATIN 388248 UNIT/ML M/T SUSP 843312 NYSTATIN Inactive PREDNISONE 20 MG TAB 1 tablet twice daily for 2 days, then 1 tablet once daily for 2 days PREDNISONE 20 MG TAB 323463 PREDNISONE Inactive PREDNISONE 20 MG TAB take 3 tabs daily for 3 days, 2 tabs daily for 3 days, 1 tab daily for 3 days, 1/2 tab daily for 4 days PREDNISONE 20 MG TAB 995123 PREDNISONE Inactive SPIRONOLACTONE 25 MG TAB 4 tablets by mouth daily SPIRONOLACTONE 25 MG TAB 571974 SPIRONOLACTONE Inactive SPIRONOLACTONE 50 MG TABS 1 tablet by mouth twice a day SPIRONOLACTONE 50 MG TABS 547674 SPIRONOLACTONE Inactive MECLIZINE HCL 25 MG TAB one 4 times a day as needed for dizziness MECLIZINE HCL 25 MG TAB 344631 MECLIZINE HCL Inactive TERBINAFINE HCL 250 MG TABS 1 tab po qday for foot infection 2014 TERBINAFINE HCL 250 MG TABS 289474 TERBINAFINE HCL Inactive LEVAQUIN 500 MG TAB 1 tablet by mouth daily for 7 days LEVAQUIN 500 MG TAB 775355 LEVOFLOXACIN Inactive ZITHROMAX 250 MG TAB 2 po today, then 1 po q days 2-5 ZITHROMAX 250 MG TAB 7104029 AZITHROMYCIN Inactive AZITHROMYCIN 250 MG ORAL TABS 2 tablets PO today---then, 1 tablet PO daily x 4 more days (and 1 optional refill) AZITHROMYCIN 250 MG ORAL TABS 8559760 AZITHROMYCIN Inactive CEFDINIR 300 MG ORAL CAPS Take 1 cap po bid x 10 days CEFDINIR 300 MG ORAL CAPS 972293 CEFDINIR Inactive TRILEPTAL 150 MG ORAL TABS 1 TAB PO Q HS TRILEPTAL 150 MG ORAL TABS 520592 OXCARBAZEPINE Inactive PROTONIX 40 MG SOLR 1 po qday for acid reflux PROTONIX 40 MG SOLR 082365 PANTOPRAZOLE SODIUM Inactive HYDROCODONE-ACETAMINOPHEN 5-325 MG TABS 1 tab by mouth BID prn back pain 2013 HYDROCODONE-ACETAMINOPHEN 5-325 MG TABS 847166 HYDROCODONE -ACETAMINOPHEN Inactive FENOFIBRATE 145 MG TABS Take one by mouth daily FENOFIBRATE 145 MG TABS 434384 FENOFIBRATE Inactive LAMISIL 125 MG ORAL PACK 1 TAB PO DAILY LAMISIL 125 MG ORAL PACK TERBINAFINE HCL Inactive VIIBRYD 40 MG TABS take 1 tab po qday for depression. VIIBRYD 40 MG TABS VILAZODONE HCL Inactive CHERATUSSIN AC 100-10 MG/5ML ORAL SOLN 7.5 mL PO q 4-6 hrs PRN cough CHERATUSSIN AC 100-10 MG/5ML ORAL SOLN 674755 GUAIFENESIN- CODEINE Inactive Advance Directives Directive Description Start Date [...] % 11.0-15.0 platelet count 185 THOUSAND/UL 10*3/mm3 534-273 7812/04/14 mean platelet volume 10.9 fL 7.5-12.5 Lab Report: LIPID PANEL, TSH/899, T4, FREE/866 - Chemistry cholesterol, serum 220 mg/dL 225-335 9983/04/14 HDL cholesterol, serum 30 mg/dL > OR=40 triglyceride, serum, fasting 466 mg/dL <150 LDL cholesterol, serum SEE NOTE mg/dL (calc) mg/dL <130 cholesterol/HDL ratio, serum 7.3 (calc) < OR=5.0 Lab Report: MICROALB/CREAT W/RATIO - Chemistry albumin/creatinine ratio, urine < 30 mg/g mg/g{creat} 0-29 Lab Report: MICROALB/CREAT W/RATIO - Lab microalbumin, urine 80 0-19 Lab Report: VITAMIN D, 25-HYDROXY/45099 - Chemistry vitamin D 25-hydroxy, serum 23 ng/mL 30-100 Office Visit: Confusion, dizziness after fall - Basic LDL target level 130 mg/dL Office Visit: Confusion, dizziness after fall - Chemistry HDL cholesterol, serum, target level 40 mg/dL triglyceride, target level 150 mg/dL cholesterol, target level 200 mg/dL Encounters Code Encounter Date Provider Facility CPT-45706 Level 4 Est. Patient 11:56:16 CDT Erin Garsia [facility] CPT-38351 Level 3 Est. Patient 17:48:02 CDT Robbie Busby MD [facility] CPT-59148 Level 4 Est. 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 Patient 09:16:37 CDT Robbie Busby MD [facility] CPT-99408 Level 3 Est. Patient 19:38:43 CDT Robbie Busby MD [facility] CPT-91023 Level 3 Est. Patient 11:53:38 CDT Robbie Busby MD [facility] CPT-59705 Level 4 Est. Patient 12:52:22 CDT Rober Rodríguez [facility] CPT-29659 Level 4 Est. Patient 22:55:17 CDT Robbie Busby MD [facility] CPT-76559 Level 3 Est. Patient 12:38:24 CDT Desmond Diaz DO [facility] CPT-80974 Level 4 Est. Patient 11:25:03 ASSEMBLY ROOM SUPERVISOR Robbie Busby MD [facility] CPT-77069 Level 4 Est. Patient 14:50:10 CDT Robbie Busby MD [facility] CPT-19423 Level 4 Est. Patient 23:30:43 CDT Robbie Busby MD [facility] CPT-42560 Level 4 Est. Patient 10:30:43 CDT Robbie Busby MD [facility] CPT-24273 Level 3 Est. Patient 17:08:12 CDT Alex Shaw [facility] CPT-46142 Level 4 Est. Patient 17:51:38 CDT Robbie Busby MD [facility] CPT-06145 Level 4 Est. Patient 14:00:21 CDT Robbie Busby MD [facility] CPT-55835 Level 4 Est. Patient 12:46:48 CDT Robbie Busby MD [facility] CPT-63349 Level 4 Est. Patient 13:34:33 CDT Robbie Busby MD [facility] CPT-70844 Level 4 Est. Patient 16:58:28 CDT Robbie Busby MD [facility] CPT-49339 Level 3 Est. Patient 19:36:53 CDT Alex Shaw [facility] CPT-97124 Level 3 Est. Patient 12:58:15 CDT Robbie Busby MD [facility] Procedures Code Procedure Name Date Entry Date Standard Description CPT-12364 TB Skin Test 11:42:28 CDT CPT-32517 Tdap 7yrs or > 11:42:28 CDT CPT-J0696 Rocephin 1000 mg (Ceftriaxone) 17:43:43 ASSEMBLY ROOM SUPERVISOR CPT-J1040 Depo Medrol 80 mg (Methyl Prednisolone Acetate) 17:43: 43 ASSEMBLY ROOM SUPERVISOR CPT-J1100 Decadron 8mg (Dexamethasone) 17:43:42 ASSEMBLY ROOM SUPERVISOR CPT-18257 Abx/Therapy Injection 17:43:42 ASSEMBLY ROOM SUPERVISOR CPT-92218 Abx/Therapy Injection 17:43:42 ASSEMBLY ROOM SUPERVISOR CPT-J1040 Depo Medrol 80 mg (Methyl Prednisolone Acetate) 09:43: 34 ASSEMBLY ROOM SUPERVISOR CPT-J1100 Decadron 8mg (Dexamethasone) 09:43:34 ASSEMBLY ROOM SUPERVISOR CPT-J0696 Rocephin 1gm Inj Solr 09:43:34 ASSEMBLY ROOM SUPERVISOR CPT-63951 Wound Culture - LAB USE ONLY 14:00:21 CDT CPT-I/D I/D Abscess 09:16:37 CDT CPT-03122 Venipuncture Draw Fee 15:20:23 CDT CPT-03387 Microalbumin - LAB USE ONLY 16:02:19 CDT CPT-29223 CBC - LAB USE ONLY 16:02:19 CDT CPT-91533 Venipuncture Draw Fee 16:02:19 CDT CPT-G0438 Initial Annual Wellness Exam 08:10:28 CDT CPT-86549 Venipuncture Draw Fee 13:07:17 CDT CPT-G0008 Administration of Influenza Virus Vaccine 16:09:59 CDT CPT-21891 Fluzone Quadrivalent Intramuscular Suspension 0.5 ML 16: 09:59 CDT CPT-96121 Spec Collection and Handling Fee 15:05:50 CDT
--- OUTSIDE RECORDS SUMMARY | 2018-04-18 11:12 | XMS REPORT | Clinical Summary ---
Author Author Admin, E Organization [facility] Address Unknown Phone Unavailable Allergies, Adverse [...] unspecified sites URI 465.9 Active Rober Rodríguez HAND I TUBE BENDER Acute upper respiratory infections of unspecified site Hypertension 401.9 Active Rober Rodríguez HAND I TUBE BENDER Unspecified essential hypertension Sinusitis - acute 461.9 [...] Status Provider Patient Instruction GUAIFENESIN 600 MG [id number] 1 tab po q am GUAIFENESIN 95566490029 No Longer Active Robbie Busby MD Active DIVALPROEX SODIUM ER 500 MG ORAL TABLET EXTENDED RELEASE 24 HOUR Once daily DIVALPROEX SODIUM 68133826855 Active Robbie Busby MD Active DEPO-TESTOSTERONE 200 MG/ML IM SOLN 1 IM Injections every 2 weeks for low testosterone TESTOSTERONE CYPIONATE 89754111514 Active Zulema Blank LPN Active CYCLOBENZAPRINE HCL 10 MG ORAL TABS 1 po TID PRN muscle spasm/pain for 10 days CYCLOBENZAPRINE HCL 05469023669 Active JONATHAN Moncada Active FLUTICASONE PROPIONATE 50 MCG/ACT SUSP 2 sprays per nostril bid for 1 week, then 1 spray bid FLUTICASONE PROPIONATE 91917828271 Active Jillina Anne HAND I TUBE BENDER Active HYDRALAZINE HCL 25 MG ORAL TABS Take 1 tab BID. HYDRALAZINE HCL 47976122250 Active Agnieszkaina Anne HAND I TUBE BENDER Active VITAMIN D3 49464 UNIT ORAL TABS 2 po weekly CHOLECALCIFEROL 76404632225 Active Robbie Busby MD Active OXYCODONE HCL ER 10 MG ORAL T12A 1 tab po 3 times qd. OXYCODONE HCL 92230206758 Active Robbie Busby MD Active NITROSTAT 0.4 MG SUBL PRN NITROGLYCERIN 64718039769 No Longer Active Robbie Busby MD Active LORATADINE 10 MG TABS 1 tablet by mouth daily for congestion and allergies. LORATADINE 37277729430 No Longer Active Robbie Busby MD Active FLONASE 50 MCG/ACT SUSP 1 spray each nostril twice daily for allergies and runny nose FLUTICASONE PROPIONATE 06093972041 No Longer Active Robbie Busby MD Active FIORICET 50-300-40 MG ORAL CAPS take 1 tab po qday prn migraines. [id number] 50875752476 No Longer Active Robbie Busby MD Active VITAMIN D3 15477 UNIT CAPS 2 CAPS PO WEEKLY CHOLECALCIFEROL 32078432515 No Longer Active Robbie Busby MD Active CYCLOBENZAPRINE HCL 10 MG TABS 1 tablet by mouth three times daily as needed for muscle spasm/pain for 10 days CYCLOBENZAPRINE HCL 51974247157 No Longer Active Robbie Busby MD Active PREDNISONE 20 MG TAB take 3 tabs daily for 3 days, 2 tabs daily for 3 days, 1 tab daily for 3 days, 1/2 tab daily for 4 days PREDNISONE 05092585151 No Longer Active Erin Garsia APRN Active CLONIDINE HCL 0.2 MG ORAL TABS 1 TAB BY MOUTH EVERY 8 HOURS 12/29 CLONIDINE HCL 38931373137 No Longer Active Erin Garsia APRN Active MECLIZINE HCL 25 MG TAB one 4 times a day as needed for dizziness MECLIZINE HCL 96032757078 No Longer Active Erin Garsia APRN Active SPIRONOLACTONE 25 MG TAB 4 tablets by mouth daily SPIRONOLACTONE 84274856025 No Longer Active Erin Garsia APRN Active LEVAQUIN 500 MG TAB 1 tablet by mouth daily for 7 days LEVOFLOXACIN 34470463602 No Longer Active Erin Garsia APRN Active BACTRIM DS 800-160 MG TAB 1 tab by mouth twice daily TRIMETHOPRIM-SULFAMETHOXAZOLE 10609527610 No Longer Active Robbie Busby MD Active HYDRALAZINE HCL 50 MG ORAL TABS TWO BY MOUTH THREE TIMES DAILY HYDRALAZINE HCL 65555273563 No Longer Active Jillld Rodríguez APRN Active HYDROCODONE-ACETAMINOPHEN 5-325 MG TABS 1 tab by mouth BID prn back pain 2013 HYDROCODONE-ACETAMINOPHEN 96426030964 No Longer Active Jillina Frakierstenl HAND I TUBE BENDER Active HYDROCHLOROTHIAZIDE TABS Take one by mouth daily HYDROCHLOROTHIAZIDE TABS 01530410491 No Longer Active Jillina Frazell HAND I TUBE BENDER Active LAMISIL 125 MG ORAL PACK 1 TAB PO DAILY TERBINAFINE HCL 69580665096 No Longer Active Jillina Frazell HAND I TUBE BENDER Active TRILEPTAL 150 MG ORAL TABS 1 TAB PO Q HS OXCARBAZEPINE 89747969952 No Longer Active Jillina Frakierstenl HAND I TUBE BENDER Active BETADINE 10 % EXT SOLN 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 POVIDONE-IODINE 81417334584 No Longer Active Rober Rodríguez APRN Active NYSTATIN 853411 UNIT/ML M/T SUSP 5mL po QID x 10 days NYSTATIN 72702014744 No Longer Active Erin Garsia APRN Active PREDNISONE 20 MG TAB 1 tablet twice daily for 2 days, then 1 tablet once daily for 2 days PREDNISONE 28545066596 No Longer Active Robbie Busby MD Active CEFDINIR 300 MG ORAL CAPS Take 1 cap po bid x 10 days CEFDINIR 42286914799 No Longer Active Robbie Busby MD Active AMLODIPINE BESYLATE 10 MG TABS 1 tablet by mouth daily AMLODIPINE BESYLATE 24877384174 Active Robbie Busby MD Active CARVEDILOL 25 MG TABS 1 & 1/2 TAB po BID CARVEDILOL 03516073311 Active Robbie Busby MD Active NEXIUM 40 MG CPDR 1 cap by mouth daily ESOMEPRAZOLE MAGNESIUM 33976429493 Active Robbie Busby MD Active PROTONIX 40 MG SOLR 1 po qday for acid reflux PANTOPRAZOLE SODIUM 81445322656 No Longer Active Gali Raida Active KEFLEX 500 MG CAP 1 po TID x 10 days CEPHALEXIN 46101866793 No Longer Active Robbie Busby MD Active TOPIRAMATE 50 MG ORAL TABS take 1 tab po BID for migraines. TOPIRAMATE 86237526536 Active Robbie Busby MD Active TEMAZEPAM 15 MG ORAL CAPS 1 TAB PO Q HS TEMAZEPAM 52074231872 Active Robbie Busby MD Active ALPRAZOLAM 2 MG ORAL TABS 1 TAB PO BID ALPRAZOLAM 12279949384 Active Robbie Busby MD Active FENOFIBRATE 145 MG TABS Take one by mouth daily FENOFIBRATE 30296736221 No Longer Active Robbie Busby MD Active SPIRONOLACTONE 50 MG TABS 1 tablet by mouth twice a day SPIRONOLACTONE 81903616272 No Longer Active Robbie Busby MD Active HYDRALAZINE HCL 25 MG TABS 1 tablet by mouth tid for hypertension HYDRALAZINE HCL 55769846768 No Longer Active Robbie Busby MD Active VIIBRYD 40 MG TABS take 1 tab po qday for depression. VILAZODONE HCL 02918828498 No Longer Active Robbie Busby MD Active TERBINAFINE HCL 250 MG TABS 1 tab po qday for foot infection 2014 TERBINAFINE HCL 65288014293 No Longer Active Robbie Busby MD Active GABAPENTIN 300 MG CAPS 1 po q hs for nerve pain GABAPENTIN 59645631685 Active Robbie Busby MD Active CHERATUSSIN AC 100-10 MG/5ML ORAL SOLN 7.5 mL PO q 4-6 hrs PRN cough GUAIFENESIN-CODEINE 99050848395 No Longer Active Robbie Busby MD Active AZITHROMYCIN 250 MG ORAL TABS 2 tablets PO today---then, 1 tablet PO daily x 4 more days (and 1 optional refill) AZITHROMYCIN 43666981498 No Longer Active Robbie Busby MD Active NORVASC 10 MG TAB 1 tablet by mouth daily AMLODIPINE BESYLATE 15513248258 No Longer Active Alex ALVAREZ Active IMDUR 60 MG TAB CR take 1 tab po qday for blood pressure ISOSORBIDE MONONITRATE Active Robbie Busby MD Active ISOSORBIDE DINITRATE 30 MG TABS Take one by mouth daily ISOSORBIDE DINITRATE 56980021517 No Longer Active Robbie Busby MD Active VIIBRYD 40 MG TABS 1 TA B PO DAILY VILAZODONE HCL 99264497049 Active Robbie Bsuby MD Active ZITHROMAX 250 MG TAB 2 po today, then 1 po q days 2-5 AZITHROMYCIN 58492840842 No Longer Active Robbie Busby MD Active [id number] 0.3 MG/24HR PTWK apply 2 patches q week for HTN CLONIDINE HCL 24136664375 Active Robbie Busby MD Active DOXAZOSIN MESYLATE 4 MG TABS Take one by mouth daily DOXAZOSIN MESYLATE 43224889198 Active Robbie Busby MD Active TOPROL XL 200 MG [id number] Take one by mouth daily METOPROLOL SUCCINATE 99668920582 Active Robbie Busby MD Active VENLAFAXINE HCL ER 150 MG [id number]-QHA Take one by mouth daily VENLAFAXINE HCL 00348972772 Active Robbie Busby MD Active LIPITOR 40 MG TABS Take one by mouth daily ATORVASTATIN CALCIUM 63667054679 Active Robbie Busby MD Active ISOSORBIDE DINITRATE 30 MG TABS Take one by mouth daily ISOSORBIDE DINITRATE 30 MG TABS 075005 ISOSORBIDE DINITRATE Inactive NORVASC 10 MG TAB 1 tablet by mouth daily NORVASC 10 MG TAB 764009 AMLODIPINE BESYLATE Inactive AZITHROMYCIN 250 MG ORAL TABS 2 tablets PO today---then, 1 tablet PO daily x 4 more days (and 1 optional refill) AZITHROMYCIN 250 MG ORAL TABS 968272 AZITHROMYCIN Inactive CHERATUSSIN AC 100-10 MG/5ML ORAL SOLN 7.5 mL PO q 4-6 hrs PRN cough CHERATUSSIN AC 100-10 MG/5ML ORAL SOLN 791178 GUAIFENESIN- CODEINE Inactive VIIBRYD 40 MG TABS take 1 tab po qday for depression. VIIBRYD 40 MG TABS VILAZODONE HCL Inactive HYDRALAZINE HCL 25 MG TABS 1 tablet by mouth tid for hypertension HYDRALAZINE HCL 25 MG TABS 617618 HYDRALAZINE HCL Inactive SPIRONOLACTONE 50 MG TABS 1 tablet by mouth twice a day SPIRONOLACTONE 50 MG TABS 848712 SPIRONOLACTONE Inactive FENOFIBRATE 145 MG TABS Take one by mouth daily FENOFIBRATE 145 MG TABS 299661 FENOFIBRATE Inactive PROTONIX 40 MG SOLR 1 po qday for acid reflux PROTONIX 40 MG SOLR 873229 PANTOPRAZOLE SODIUM Inactive CEFDINIR 300 MG ORAL CAPS Take 1 cap po bid x 10 days CEFDINIR 300 MG ORAL CAPS 502195 CEFDINIR Inactive PREDNISONE 20 MG TAB 1 tablet twice daily for 2 days, then 1 tablet once daily for 2 days PREDNISONE 20 MG TAB 951650 PREDNISONE Inactive NYSTATIN 390220 UNIT/ML M/T SUSP 5mL po QID x 10 days NYSTATIN 841261 UNIT/ML M/T SUSP 276593 NYSTATIN Inactive BETADINE 10 % EXT SOLN 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 BETADINE 10 % EXT SOLN 1129516 POVIDONE-IODINE Inactive TRILEPTAL 150 MG ORAL TABS 1 TAB PO Q HS TRILEPTAL 150 MG ORAL TABS 171732 OXCARBAZEPINE Inactive LAMISIL 125 MG ORAL PACK 1 TAB PO DAILY LAMISIL 125 MG ORAL PACK TERBINAFINE HCL Inactive HYDROCHLOROTHIAZIDE TABS Take one by mouth daily HYDROCHLOROTHIAZIDE TABS HYDROCHLOROTHIAZIDE TABS Inactive HYDROCODONE-ACETAMINOPHEN 5-325 MG TABS 1 tab by mouth BID prn back pain 2013 HYDROCODONE-ACETAMINOPHEN 5-325 MG TABS 950253 HYDROCODONE -ACETAMINOPHEN Inactive HYDRALAZINE HCL 50 MG ORAL TABS TWO BY MOUTH THREE TIMES DAILY HYDRALAZINE HCL 50 MG ORAL TABS 825401 HYDRALAZINE HCL Inactive LEVAQUIN 500 MG TAB 1 tablet by mouth daily for 7 days LEVAQUIN 500 MG TAB 043975 LEVOFLOXACIN Inactive SPIRONOLACTONE 25 MG TAB 4 tablets by mouth daily SPIRONOLACTONE 25 MG TAB 029523 SPIRONOLACTONE Inactive MECLIZINE HCL 25 MG TAB one 4 times a day as needed for dizziness MECLIZINE HCL 25 MG TAB 522285 MECLIZINE HCL Inactive CLONIDINE HCL 0.2 MG ORAL TABS 1 TAB BY MOUTH EVERY 8 HOURS 12/29 CLONIDINE HCL 0.2 MG ORAL TABS 145229 CLONIDINE HCL Inactive CYCLOBENZAPRINE HCL 10 MG TABS 1 tablet by mouth three times daily as needed for muscle spasm/pain for 10 days CYCLOBENZAPRINE HCL 10 MG TABS 866648 CYCLOBENZAPRINE HCL Inactive VITAMIN D3 94006 UNIT CAPS 2 CAPS PO WEEKLY VITAMIN D3 53013 UNIT CAPS CHOLECALCIFEROL Inactive FIORICET 50-300-40 MG ORAL CAPS take 1 tab po qday prn migraines. FIORICET 50-300-40 MG ORAL CAPS 429537 [id number] Inactive FLONASE 50 MCG/ACT SUSP 1 spray each nostril twice daily for allergies and runny nose FLONASE 50 MCG/ACT SUSP 2261894 FLUTICASONE PROPIONATE Inactive LORATADINE 10 MG TABS 1 tablet by mouth daily for congestion and allergies. LORATADINE 10 MG TABS 087933 LORATADINE Inactive NITROSTAT 0.4 MG SUBL PRN NITROSTAT 0.4 MG SUBL 187078 NITROGLYCERIN Inactive GUAIFENESIN 600 MG [id number] 1 tab po q am GUAIFENESIN 600 MG [id number] GUAIFENESIN Inactive ZITHROMAX 250 MG TAB 2 po today, then 1 po q days 2-5 ZITHROMAX 250 MG TAB 903659 AZITHROMYCIN Inactive TERBINAFINE HCL 250 MG TABS 1 tab po qday for foot infection 2014 TERBINAFINE HCL 250 MG TABS 152254 TERBINAFINE HCL Inactive KEFLEX 500 MG CAP 1 po TID x 10 days KEFLEX 500 MG CAP 955670 CEPHALEXIN Inactive BACTRIM DS 800-160 MG TAB 1 tab by mouth twice daily BACTRIM DS 800-160 MG TAB 925471 TRIMETHOPRIM-SULFAMETHOXAZOLE Inactive PREDNISONE 20 MG TAB take 3 tabs daily for 3 days, 2 tabs daily for 3 days, 1 tab daily for 3 days, 1/2 tab daily for 4 days PREDNISONE 20 MG TAB 226544 PREDNISONE Inactive Advance Directives Directive Description Start [...] AUTO - Chemistry sodium, serum 142 mmol/L 556-715 6478/07/17 carbon dioxide, venous blood 28.2 mmol/L 21.0-32.0 [...] % 11.0-15.0 platelet count 185 THOUSAND/UL 10*3/mm3 051-498 4083/04/14 mean platelet volume 10.9 fL 7.5-12.5 Lab Report: LIPID PANEL, TSH/899, T4, FREE/866 - Chemistry cholesterol, serum 220 mg/dL 329-478 2340/04/14 HDL cholesterol, serum 30 mg/dL > OR=40 [...] 1.80 ng/mL 0.00-4.00 Lab Report: VITAMIN D, 25-HYDROXY/27420 - Chemistry vitamin D 25-hydroxy, serum 25 ng/mL 30-100 Office Visit: Confusion, dizziness after fall - Basic LDL target level 130 mg/dL Office Visit: Confusion, dizziness after fall - Chemistry HDL cholesterol, serum, target level 40 mg/dL triglyceride, target level 150 mg/dL cholesterol, target level 200 mg/dL Encounters Code Encounter Date Provider Facility CPT-24271 Level 3 Est. Patient 15:40:49 CDT Robbie Busby MD [facility] CPT-49519 Level 4 Est. Patient 15:18:19 CDT Robbie Busby MD [facility] CPT-52021 Level 3 Est. Patient 09:00:37 CDT Rober Rodríguez [facility] CPT-34140 Level 3 Est. Patient 16:07:10 CDT Robbie Busby MD [facility] CPT-31045 Level 4 Est. Patient 11:56:16 CDT Erin Garsia [facility] CPT-25278 Level 3 Est. Patient 17:48:02 CDT Robbie Busby MD [facility] CPT-27359 Level 4 Est. 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 Patient 09:16:37 CDT Robbie Busby MD [facility] CPT-44371 Level 3 Est. Patient 19:38:43 CDT Robbie Busby MD [facility] CPT-91838 Level 3 Est. Patient 11:53:38 CDT Robbie Busby MD [facility]-83411 Level 4 Est. Patient 12:52:22 CDT Rober Rodríguez APRN [facility] CPT-78297 Level 4 Est. Patient 22:55:17 CDT Robbie Busby MD [facility]-84961 Level 3 Est. Patient 12:38:24 CDT Demsond Diaz DO [facility] CPT-02269 Level 4 Est. 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 Patient 14:50:10 CDT Robbie Busby MD [facility] [place]-91835 Level 4 Est. Patient 23:30:43 CDT Robbie Busby MD [facility] CPT-71375 Level 4 Est. Patient 10:30:43 CDT Robbie Busby MD [facility] [place]91583 Level 3 Est. Patient 17:08:12 CDT Alex ALVAREZ [facility] CPT-00057 Level 4 Est. Patient 17:51:38 CDT Robbie Busby MD [facility] CPT-96508 Level 4 Est. Patient 14:00:21 CDT Robbie Busby MD [facility] CPT-27556 Level 4 Est. Patient 12:46:48 CDT Robbie Busby MD [facility] [place]-58427 Level 4 Est. Patient 13:34:33 CDT Robbie Busby MD [facility] [place]-72048 Level 4 Est. Patient 16:58:28 CDT Robbie Busby MD [facility] [place]-10926 Level 3 Est. Patient 19:36:53 CDT Alex ALVAREZ [facility] CPT-96265 Level 3 Est. Patient 12:58:15 CDT Robbie Busby MD [facility] Procedures Code Procedure Name Date Entry Date Standard Description CPT-J1071 Depo Testosterone 200mg 14:20:43 CDT CPT-54611 Abx/Therapy Injection 14:20:43 CDT CPT-J1071 Depo Testosterone 200mg 14:17:22 CDT CPT-09710 Abx/Therapy Injection 14:17:22 CDT CPT-J1071 Depo Testosterone 200mg 09:03:53 CDT CPT-63540 Abx/Therapy Injection 09:03:53 CDT CPT-G0439 [facility] Annual Wellness Exam 16:47:44 CDT CPT-J1071 Depo Testosterone 200mg 09:06:28 CDT CPT-80619 Abx/Therapy Injection 09:06:28 CDT CPT-J1071 Depo Testosterone 200mg 08:30:01 CDT CPT-53434 Abx/Therapy Injection 08:30:01 CDT CPT-J1071 Depo Testosterone 200mg 08:24:00 CDT CPT-61531 Abx/Therapy Injection 08:24:00 CDT CPT-42271 Venipuncture Draw Fee 14:39:06 CDT CPT-97653 Ribs unilateral 2V - XRAY USE ONLY 12:10:11 CDT CPT-87490 First Vx - Ix admin for Medicare patients 16:32:53 CDT CPT-44104 Boostrix Intramuscular Suspension 5-2.5-18.5 16:32:53 CDT CPT-20357 TB Skin Test 11:42:28 CDT CPT-48829 Tdap 7yrs or > 11:42:28 CDT CPT-J0696 Rocephin 1000 mg (Ceftriaxone) 17:43:43 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 CPT-J1040 Depo Medrol 80 mg (Methyl Prednisolone Acetate) 17:43: 43 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 CPT-J1100 Decadron 8mg (Dexamethasone) 17:43:42 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 CPT-90880 Abx/Therapy Injection 17:43:42 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 CPT-89692 Abx/Therapy Injection 17:43:42 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 CPT-J1040 Depo Medrol 80 mg (Methyl Prednisolone Acetate) 09:43: 34 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 CPT-J1100 Decadron 8mg (Dexamethasone) 09:43:34 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 CPT-J0696 Rocephin 1gm Inj Solr 09:43:34 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 CPT-27891 Wound Culture - LAB USE ONLY 14:00:21 CDT CPT-I/D I/D Abscess 09:16:37 CDT CPT-62757 Venipuncture Draw Fee 15:20:23 CDT CPT-13011 Microalbumin - LAB USE ONLY 16:02:19 CDT CPT-96781 CBC - LAB USE ONLY 16:02:19 CDT CPT-86717 Venipuncture Draw Fee 16:02:19 CDT CPT-G0438 Initial Annual Wellness Exam 08:10:28 CDT CPT-13047 Venipuncture Draw Fee 13:07:17 CDT CPT-G0008 Administration of Influenza Virus Vaccine 16:09:59 CDT CPT-23881 Fluzone Quadrivalent Intramuscular Suspension 0.5 ML 16: 09:59 CDT CPT-97435 Spec Collection and Handling Fee 15:05:50 CDT
--- OUTSIDE RECORDS SUMMARY | 2018-04-18 11:13 | XMS REPORT | Clinical Summary ---
Author Author Admin, [facility] Organization [employer] Address Unknown Phone Unavailable Allergies, Adverse Reactions, [...] hair and hair follicles Migraine 346.90 Active Robbei Busby MD Migraine, unspecified, without mention of [...] unspecified sites URI 465.9 Active Rober Rodríguez COMBINE INSPECTOR Acute upper respiratory infections of unspecified site [...] Status Provider Patient Instruction GUAIFENESIN 600 MG [id number] 1 tab po q am GUAIFENESIN [id number] No Longer Active Robbie Busby MD Active DIVALPROEX SODIUM ER 500 MG ORAL TABLET EXTENDED RELEASE 24 HOUR Once daily DIVALPROEX SODIUM 68698040424 Active Robbie Busby MD Active DEPO-TESTOSTERONE 200 MG/ML IM SOLN 1 IM Injections every 2 weeks for low testosterone TESTOSTERONE CYPIONATE 99139741595 Active Zulema Blank LPN Active CYCLOBENZAPRINE HCL 10 MG ORAL TABS 1 po TID PRN muscle spasm/pain for 10 days CYCLOBENZAPRINE HCL 85273167624 Active JONATHAN Moncada Active FLUTICASONE PROPIONATE 50 MCG/ACT SUSP 2 sprays per nostril bid for 1 week, then 1 spray bid FLUTICASONE PROPIONATE 97449662419 Active Jillina Franeha COMBINE INSPECTOR Active HYDRALAZINE HCL 25 MG ORAL TABS Take 1 tab BID. HYDRALAZINE HCL 99828443939 Active Jillina Anne COMBINE INSPECTOR Active VITAMIN D3 38386 UNIT ORAL TABS 2 po weekly CHOLECALCIFEROL 96600105820 Active Robbie Busby MD Active OXYCODONE HCL ER 10 MG ORAL T12A 1 tab po 3 times qd. OXYCODONE HCL 48872147579 Active Robbie Busby MD Active NITROSTAT 0.4 MG SUBL PRN NITROGLYCERIN 60295844940 No Longer Active Robbie Busby MD Active LORATADINE 10 MG TABS 1 tablet by mouth daily for congestion and allergies. LORATADINE 32408459608 No Longer Active Robbie Busby MD Active FLONASE 50 MCG/ACT SUSP 1 spray each nostril twice daily for allergies and runny nose FLUTICASONE PROPIONATE 22612174233 No Longer Active Robbie Busby MD Active FIORICET 50-300-40 MG ORAL CAPS take 1 tab po qday prn migraines. [id number] 47342914338 No Longer Active Robbie Busby MD Active VITAMIN D3 52924 UNIT CAPS 2 CAPS PO WEEKLY CHOLECALCIFEROL 34557885422 No Longer Active Robbie Busby MD Active CYCLOBENZAPRINE HCL 10 MG TABS 1 tablet by mouth three times daily as needed for muscle spasm/pain for 10 days CYCLOBENZAPRINE HCL 06603361235 No Longer Active Robbie Busby MD Active PREDNISONE 20 MG TAB take 3 tabs daily for 3 days, 2 tabs daily for 3 days, 1 tab daily for 3 days, 1/2 tab daily for 4 days PREDNISONE 51740086048 No Longer Active Erin Garsia APRN Active CLONIDINE HCL 0.2 MG ORAL TABS 1 TAB BY MOUTH EVERY 8 HOURS 12/29 CLONIDINE HCL 99673837153 No Longer Active Erin Garsia APRN Active MECLIZINE HCL 25 MG TAB one 4 times a day as needed for dizziness MECLIZINE HCL 37758542264 No Longer Active Erin Garsia APRN Active SPIRONOLACTONE 25 MG TAB 4 tablets by mouth daily SPIRONOLACTONE 07934732554 No Longer Active Erin Garsia APRN Active LEVAQUIN 500 MG TAB 1 tablet by mouth daily for 7 days LEVOFLOXACIN 81368591811 No Longer Active Erin Garsia APRN Active BACTRIM DS 800-160 MG TAB 1 tab by mouth twice daily TRIMETHOPRIM-SULFAMETHOXAZOLE 02094147313 No Longer Active Robbie Busby MD Active HYDRALAZINE HCL 50 MG ORAL TABS TWO BY MOUTH THREE TIMES DAILY HYDRALAZINE HCL 20272903551 No Longer Active Jillld Rodríguez APRN Active HYDROCODONE-ACETAMINOPHEN 5-325 MG TABS 1 tab by mouth BID prn back pain 2013 HYDROCODONE-ACETAMINOPHEN 47427815577 No Longer Active Jillina Zulemal COMBINE INSPECTOR Active HYDROCHLOROTHIAZIDE TABS Take one by mouth daily HYDROCHLOROTHIAZIDE TABS 39929665903 No Longer Active Jillina Frakierstenl COMBINE INSPECTOR Active LAMISIL 125 MG ORAL PACK 1 TAB PO DAILY TERBINAFINE HCL 07758375474 No Longer Active Jillina Frakierstenl COMBINE INSPECTOR Active TRILEPTAL 150 MG ORAL TABS 1 TAB PO Q HS OXCARBAZEPINE 18664474809 No Longer Active Jillina Frakierstenl COMBINE INSPECTOR Active BETADINE 10 % EXT SOLN 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 POVIDONE-IODINE 42543179460 No Longer Active Rober Rodríguez APRN Active NYSTATIN 584746 UNIT/ML M/T SUSP 5mL po QID x 10 days NYSTATIN 64686943754 No Longer Active Erin Garsia APRN Active PREDNISONE 20 MG TAB 1 tablet twice daily for 2 days, then 1 tablet once daily for 2 days PREDNISONE 26766503263 No Longer Active Robbie Busby MD Active CEFDINIR 300 MG ORAL CAPS Take 1 cap po bid x 10 days CEFDINIR 83627595671 No Longer Active Robbie Busby MD Active AMLODIPINE BESYLATE 10 MG TABS 1 tablet by mouth daily AMLODIPINE BESYLATE 88274818023 Active Robbie Busby MD Active CARVEDILOL 25 MG TABS 1 & 1/2 TAB po BID CARVEDILOL 75131814533 Active Robbie Busby MD Active NEXIUM 40 MG CPDR 1 cap by mouth daily ESOMEPRAZOLE MAGNESIUM 66204107930 Active Robbie Busby MD Active PROTONIX 40 MG SOLR 1 po qday for acid reflux PANTOPRAZOLE SODIUM 53035073663 No Longer Active Gali Raida Active KEFLEX 500 MG CAP 1 po TID x 10 days CEPHALEXIN 33664768745 No Longer Active Robbie Busby MD Active TOPIRAMATE 50 MG ORAL TABS take 1 tab po BID for migraines. TOPIRAMATE 36746319952 Active Robbie Busby MD Active TEMAZEPAM 15 MG ORAL CAPS 1 TAB PO Q HS TEMAZEPAM 73498898662 Active Robbie Busby MD Active ALPRAZOLAM 2 MG ORAL TABS 1 TAB PO BID ALPRAZOLAM 45328306916 Active Robbie Busby MD Active FENOFIBRATE 145 MG TABS Take one by mouth daily FENOFIBRATE 60276939828 No Longer Active Robbie Busby MD Active SPIRONOLACTONE 50 MG TABS 1 tablet by mouth twice a day SPIRONOLACTONE 53477199724 No Longer Active Robbie Busby MD Active HYDRALAZINE HCL 25 MG TABS 1 tablet by mouth tid for hypertension HYDRALAZINE HCL 01053236865 No Longer Active Robbie Busby MD Active VIIBRYD 40 MG TABS take 1 tab po qday for depression. VILAZODONE HCL 91743751088 No Longer Active oRbbie Busby MD Active TERBINAFINE HCL 250 MG TABS 1 tab po qday for foot infection 2014 TERBINAFINE HCL 04443708583 No Longer Active Robbie Busby MD Active GABAPENTIN 300 MG CAPS 1 po q hs for nerve pain GABAPENTIN 24067320670 Active Robbie Busby MD Active CHERATUSSIN AC 100-10 MG/5ML ORAL SOLN 7.5 mL PO q 4-6 hrs PRN cough GUAIFENESIN-CODEINE 39715295632 No Longer Active Robbie Busby MD Active AZITHROMYCIN 250 MG ORAL TABS 2 tablets PO today---then, 1 tablet PO daily x 4 more days (and 1 optional refill) AZITHROMYCIN 92347290513 No Longer Active Robbie Busby MD Active NORVASC 10 MG TAB 1 tablet by mouth daily AMLODIPINE BESYLATE 55756478584 No Longer Active Alex ALVAREZ Active IMDUR 60 MG TAB CR take 1 tab po qday for blood pressure ISOSORBIDE MONONITRATE Active Robbie Busby MD Active ISOSORBIDE DINITRATE 30 MG TABS Take one by mouth daily ISOSORBIDE DINITRATE 66356266103 No Longer Active Robbie Busby MD Active VIIBRYD 40 MG TABS 1 TA B PO DAILY VILAZODONE HCL 72012723974 Active Robbie Busby MD Active ZITHROMAX 250 MG TAB 2 po today, then 1 po q days 2-5 AZITHROMYCIN 56044836412 No Longer Active Robbie Busby MD Active [id number] 0.3 MG/24HR PTWK apply 2 patches q week for HTN CLONIDINE HCL 05406839959 Active Robbie Busby MD Active DOXAZOSIN MESYLATE 4 MG TABS Take one by mouth daily DOXAZOSIN MESYLATE 81687771555 Active Robbie Busby MD Active TOPROL XL 200 MG [id number] Take one by mouth daily METOPROLOL SUCCINATE 50212624744 Active Robbie Busby MD Active VENLAFAXINE HCL ER 150 MG [id number] Take one by mouth daily VENLAFAXINE HCL 91231221267 Active Robbie Busby MD Active LIPITOR 40 MG TABS Take one by mouth daily ATORVASTATIN CALCIUM 90203587037 Active Robbie Busby MD Active ISOSORBIDE DINITRATE 30 MG TABS Take one by mouth daily ISOSORBIDE DINITRATE 30 MG TABS 060938 ISOSORBIDE DINITRATE Inactive NORVASC 10 MG TAB 1 tablet by mouth daily NORVASC 10 MG TAB 802624 AMLODIPINE BESYLATE Inactive AZITHROMYCIN 250 MG ORAL TABS 2 tablets PO today---then, 1 tablet PO daily x 4 more days (and 1 optional refill) AZITHROMYCIN 250 MG ORAL TABS 859617 AZITHROMYCIN Inactive CHERATUSSIN AC 100-10 MG/5ML ORAL SOLN 7.5 mL PO q 4-6 hrs PRN cough CHERATUSSIN AC 100-10 MG/5ML ORAL SOLN 323767 GUAIFENESIN- CODEINE Inactive VIIBRYD 40 MG TABS take 1 tab po qday for depression. VIIBRYD 40 MG TABS VILAZODONE HCL Inactive HYDRALAZINE HCL 25 MG TABS 1 tablet by mouth tid for hypertension HYDRALAZINE HCL 25 MG TABS 389311 HYDRALAZINE HCL Inactive SPIRONOLACTONE 50 MG TABS 1 tablet by mouth twice a day SPIRONOLACTONE 50 MG TABS 562817 SPIRONOLACTONE Inactive FENOFIBRATE 145 MG TABS Take one by mouth daily FENOFIBRATE 145 MG TABS 148634 FENOFIBRATE Inactive PROTONIX 40 MG SOLR 1 po qday for acid reflux PROTONIX 40 MG SOLR 448182 PANTOPRAZOLE SODIUM Inactive CEFDINIR 300 MG ORAL CAPS Take 1 cap po bid x 10 days CEFDINIR 300 MG ORAL CAPS 717441 CEFDINIR Inactive PREDNISONE 20 MG TAB 1 tablet twice daily for 2 days, then 1 tablet once daily for 2 days PREDNISONE 20 MG TAB 753997 PREDNISONE Inactive NYSTATIN 117006 UNIT/ML M/T SUSP 5mL po QID x 10 days NYSTATIN 512883 UNIT/ML M/T SUSP 131551 NYSTATIN Inactive BETADINE 10 % EXT SOLN 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 BETADINE 10 % EXT SOLN 1642109 POVIDONE-IODINE Inactive TRILEPTAL 150 MG ORAL TABS 1 TAB PO Q HS TRILEPTAL 150 MG ORAL TABS 693831 OXCARBAZEPINE Inactive LAMISIL 125 MG ORAL PACK 1 TAB PO DAILY LAMISIL 125 MG ORAL PACK TERBINAFINE HCL Inactive HYDROCHLOROTHIAZIDE TABS Take one by mouth daily HYDROCHLOROTHIAZIDE TABS HYDROCHLOROTHIAZIDE TABS Inactive HYDROCODONE-ACETAMINOPHEN 5-325 MG TABS 1 tab by mouth BID prn back pain 2013 HYDROCODONE-ACETAMINOPHEN 5-325 MG TABS 848942 HYDROCODONE -ACETAMINOPHEN Inactive HYDRALAZINE HCL 50 MG ORAL TABS TWO BY MOUTH THREE TIMES DAILY HYDRALAZINE HCL 50 MG ORAL TABS 388087 HYDRALAZINE HCL Inactive LEVAQUIN 500 MG TAB 1 tablet by mouth daily for 7 days LEVAQUIN 500 MG TAB 042901 LEVOFLOXACIN Inactive SPIRONOLACTONE 25 MG TAB 4 tablets by mouth daily SPIRONOLACTONE 25 MG TAB 258031 SPIRONOLACTONE Inactive MECLIZINE HCL 25 MG TAB one 4 times a day as needed for dizziness MECLIZINE HCL 25 MG TAB 768566 MECLIZINE HCL Inactive CLONIDINE HCL 0.2 MG ORAL TABS 1 TAB BY MOUTH EVERY 8 HOURS 12/29 CLONIDINE HCL 0.2 MG ORAL TABS 786757 CLONIDINE HCL Inactive CYCLOBENZAPRINE HCL 10 MG TABS 1 tablet by mouth three times daily as needed for muscle spasm/pain for 10 days CYCLOBENZAPRINE HCL 10 MG TABS 312404 CYCLOBENZAPRINE HCL Inactive VITAMIN D3 15258 UNIT CAPS 2 CAPS PO WEEKLY VITAMIN D3 16668 UNIT CAPS CHOLECALCIFEROL Inactive FIORICET 50-300-40 MG ORAL CAPS take 1 tab po qday prn migraines. FIORICET 50-300-40 MG ORAL CAPS 964753 [id number] Inactive FLONASE 50 MCG/ACT SUSP 1 spray each nostril twice daily for allergies and runny nose FLONASE 50 MCG/ACT SUSP 9371540 FLUTICASONE PROPIONATE Inactive LORATADINE 10 MG TABS 1 tablet by mouth daily for congestion and allergies. LORATADINE 10 MG TABS 691654 LORATADINE Inactive NITROSTAT 0.4 MG SUBL PRN NITROSTAT 0.4 MG SUBL 820482 NITROGLYCERIN Inactive GUAIFENESIN 600 MG [id number] 1 tab po q am GUAIFENESIN 600 MG [id number] GUAIFENESIN Inactive ZITHROMAX 250 MG TAB 2 po today, then 1 po q days 2-5 ZITHROMAX 250 MG TAB 928039 AZITHROMYCIN Inactive TERBINAFINE HCL 250 MG TABS 1 tab po qday for foot infection 2014 TERBINAFINE HCL 250 MG TABS 060100 TERBINAFINE HCL Inactive KEFLEX 500 MG CAP 1 po TID x 10 days KEFLEX 500 MG CAP 603082 CEPHALEXIN Inactive BACTRIM DS 800-160 MG TAB 1 tab by mouth twice daily BACTRIM DS 800-160 MG TAB 491951 TRIMETHOPRIM-SULFAMETHOXAZOLE Inactive PREDNISONE 20 MG TAB take 3 tabs daily for 3 days, 2 tabs daily for 3 days, 1 tab daily for 3 days, 1/2 tab daily for 4 days PREDNISONE 20 MG TAB 533366 PREDNISONE Inactive Advance Directives Directive Description Start [...] AUTO - Chemistry sodium, serum 142 mmol/L 431-976 2076/07/17 carbon dioxide, venous blood 28.2 mmol/L 21.0-32.0 [...] % 11.0-15.0 platelet count 185 THOUSAND/UL 10*3/mm3 642-492 4050/04/14 mean platelet volume 10.9 fL 7.5-12.5 Lab Report: LIPID PANEL, TSH/899, T4, FREE/866 - Chemistry cholesterol, serum 220 mg/dL 307-645 4180/04/14 HDL cholesterol, serum 30 mg/dL > OR=40 [...] 1.80 ng/mL 0.00-4.00 Lab Report: VITAMIN D, 25-HYDROXY/42173 - Chemistry vitamin D 25-hydroxy, serum 25 ng/mL 30-100 Office Visit: Confusion, dizziness after fall - Basic LDL target level 130 mg/dL Office Visit: Confusion, dizziness after fall - Chemistry HDL cholesterol, serum, target level 40 mg/dL triglyceride, target level 150 mg/dL cholesterol, target level 200 mg/dL Encounters Code Encounter Date Provider Facility CPT-70951 Level 3 Est. Patient 15:40:49 CDT Robbie Busby MD [facility] CPT-81700 Level 4 Est. Patient 15:18:19 CDT Robbie Busby MD [facility] CPT-53433 Level 3 Est. Patient 09:00:37 CDT Rober Rodríguez [facility] CPT-23903 Level 3 Est. Patient 16:07:10 CDT Robbie Busby MD [facility] CPT-82276 Level 4 Est. Patient 11:56:16 CDT Erin Garsia [facility] CPT-04991 Level 3 Est. Patient 17:48:02 CDT Robbie Busby MD [facility] CPT-40899 Level 4 Est. Patient 12:00:49 COURT OFFICER Rober Rodríguez [facility] CPT-75545 Level 3 Est. Patient 09:16:37 CDT Robbie Busby MD [facility] CPT-64563 Level 3 Est. Patient 19:38:43 CDT Robbie Busby MD [facility] CPT-48460 Level 3 Est. Patient 11:53:38 CDT Robbie Busby MD [facility]-51158 Level 4 Est. Patient 12:52:22 CDT Rober Rodríguez APRN [facility] CPT-15488 Level 4 Est. Patient 22:55:17 CDT Robbie Busby MD [facility]-18785 Level 3 Est. Patient 12:38:24 CDT Desmond Diaz DO [facility] CPT-30199 Level 4 Est. Patient 11:25:03 COURT OFFICER Robbie Busby MD [facility]-08019 Level 4 Est. Patient 14:50:10 CDT Robbie Busby MD [facility]-57613 Level 4 Est. Patient 23:30:43 CDT Robbie Busby MD [facility] CPT-60574 Level 4 Est. Patient 10:30:43 CDT Robbie Busby MD [facility] CPT-24112 Level 3 Est. Patient 17:08:12 CDT Alex ALVAREZ [facility] CPT-48263 Level 4 Est. Patient 17:51:38 CDT Robbie Busby MD [facility] CPT-45940 Level 4 Est. Patient 14:00:21 CDT Robbie Busby MD [facility] CPT-06168 Level 4 Est. Patient 12:46:48 CDT Robbie Busby MD [facility]-55342 Level 4 Est. Patient 13:34:33 CDT Robbie Busby MD [facility]-12649 Level 4 Est. Patient 16:58:28 CDT Robbie Busby MD [facility]-87987 Level 3 Est. Patient 19:36:53 CDT Alex ALVAREZ [facility] CPT-73198 Level 3 Est. Patient 12:58:15 CDT Robbie Busby MD [facility] Procedures Code Procedure Name Date Entry Date Standard Description CPT-J1071 Depo Testosterone 200mg 14:17:22 CDT CPT-35827 Abx/Therapy Injection 14:17:22 CDT CPT-J1071 Depo Testosterone 200mg 09:03:53 CDT CPT-85367 Abx/Therapy Injection 09:03:53 CDT CPT-G0439 [facility] Annual Wellness Exam 16:47:44 CDT CPT-J1071 Depo Testosterone 200mg 09:06:28 CDT CPT-37144 Abx/Therapy Injection 09:06:28 CDT CPT-J1071 Depo Testosterone 200mg 08:30:01 CDT CPT-92550 Abx/Therapy Injection 08:30:01 CDT CPT-J1071 Depo Testosterone 200mg 08:24:00 CDT CPT-69198 Abx/Therapy Injection 08:24:00 CDT CPT-65744 Venipuncture Draw Fee 14:39:06 CDT CPT-51948 Ribs unilateral 2V - XRAY USE ONLY 12:10:11 CDT CPT-55920 First Vx - Ix admin for Medicare patients 16:32:53 CDT CPT-60368 Boostrix Intramuscular Suspension 5-2.5-18.5 16:32:53 CDT CPT-54268 TB Skin Test 11:42:28 CDT CPT-52197 Tdap 7yrs or > 11:42:28 CDT CPT-J0696 Rocephin 1000 mg (Ceftriaxone) 17:43:43 COURT OFFICER CPT-J1040 Depo Medrol 80 mg (Methyl Prednisolone Acetate) 17:43: 43 COURT OFFICER CPT-J1100 Decadron 8mg (Dexamethasone) 17:43:42 COURT OFFICER CPT-54291 Abx/Therapy Injection 17:43:42 COURT OFFICER CPT-84717 Abx/Therapy Injection 17:43:42 [address] OFFICER CPT-J1040 Depo Medrol 80 mg (Methyl Prednisolone Acetate) 09:43: 34 COURT OFFICER CPT-J1100 Decadron 8mg (Dexamethasone) 09:43:34 COURT OFFICER CPT-J0696 Rocephin 1gm Inj Solr 09:43:34 COURT OFFICER CPT-10008 Wound Culture - LAB USE ONLY 14:00:21 CDT CPT-I/D I/D Abscess 09:16:37 CDT CPT-82794 Venipuncture Draw Fee 15:20:23 CDT CPT-96932 Microalbumin - LAB USE ONLY 16:02:19 CDT CPT-56276 CBC - LAB USE ONLY 16:02:19 CDT CPT-08295 Venipuncture Draw Fee 16:02:19 CDT CPT-G0438 Initial Annual Wellness Exam 08:10:28 CDT CPT-04639 Venipuncture Draw Fee 13:07:17 CDT CPT-G0008 Administration of Influenza Virus Vaccine 16:09:59 CDT CPT-97763 Fluzone Quadrivalent Intramuscular Suspension 0.5 ML 16: 09:59 CDT CPT-51862 Spec Collection and Handling Fee 15:05:50 CDT
--- OUTSIDE RECORDS SUMMARY | 2018-04-18 11:14 | XMS REPORT | Clinical Summary ---
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 Desmond Diaz DO Other malignant secondary hypertension Tachycardia 785.0 Active Rober Rodríguez TELEVISION AUDIO ENGINEER Tachycardia, unspecified Insect bite, infected 919.5 Resolved Desmond Diaz DO Insect bite, nonvenomous, of other, multiple, and unspecified sites, infected Abscess, skin 682.9 Resolved Desmond Diaz DO Cellulitis and abscess of unspecified sites URI 465.9 Resolved Desmond Diaz DO Acute upper respiratory infections of unspecified site Hypertension 401.9 Active Rober Rodríguez TELEVISION AUDIO ENGINEER Unspecified essential hypertension Sinusitis - acute [...] Hypogonadism, low testosterone 257.2 Active Erin Mai TELEVISION AUDIO ENGINEER Other testicular hypofunction Low back pain, [...] 37.0-37.9, adult Sinusitis ICD-461.9 Inactive Emily Atwood [employer] 2017 Low back pain, acute ICD-724.2 Inactive Emily Atwood [employer] Low back pain, chronic ICD-724.2 Inactive Emily Atwood [employer] Bronchitis, acute ICD-466.0 Inactive Emily Atwood [employer] Onychomycosis, toenails ICD-110.1 Inactive Emily Atwood [employer] Dizziness ICD-780.4 Inactive Emily Atwood [employer] 2017 Folliculitis ICD-704.8 Inactive Emily Atwood [employer] Pharyngitis-Acute ICD-462 Inactive Emily Atwood [employer] Fatigue ICD-780.79 Inactive Emily Atwood [employer] 09/20 Hypertension, secondary, malignant ICD-405.09 Inactive Emily Atwood [employer] Insect bite, infected ICD-919.5 Inactive Emily Atwood [employer] Abscess, skin ICD-682.9 Inactive Emily Atwood [employer] URI ICD-465.9 Inactive Emily Atwood [employer] Sinusitis - acute ICD-461.9 Inactive Emily Atwood [employer] Acute confusion ICD-293.0 Inactive Emily Atwood [employer] Headache ICD-784.0 Inactive Emily Rai [employer] 09/20 Back pain ICD-724.5 Inactive Emiyl Atwoodnae [employer] 2017 Rib pain, right sided ICD-786.50 Inactive Emily Rai [employer] Myalgias ICD-729.1 Inactive Emily Rai LOPEZN 09/20 URI ICD-465.9 Inactive Emily Rai [facility] Bronchitis-Acute ICD-466.0 Inactive Desmond Diaz DO Medication List Medication Instructions Start Date Stop Date Generic Name NDC Status Provider Patient Instruction IMDUR 60 MG ORAL TABLET EXTENDED RELEASE 24 HOUR 1 po q day ISOSORBIDE MONONITRATE 36982786541 Active Emma Hernandez Active METOPROLOL SUCCINATE ER 200 MG ORAL TABLET EXTENDED RELEASE 24 HOUR take 1 tab po qday for high blood pressure and rapid pulse METOPROLOL SUCCINATE 23878884647 Active Robbie Busby MD Active SBENFVOX-GZH-2 0.3 MG/24HR TRANSDERMAL PATCH WEEKLY apply 2 patches q week for HTN CLONIDINE HCL 07358373065 No Longer Active Robbie Busby MD Active IMDUR 60 MG ORAL TABLET EXTENDED RELEASE 24 HOUR take 1 tab po qday for blood pressure ISOSORBIDE MONONITRATE 45897289914 No Longer Active Robbie Busby MD Active TEMAZEPAM 15 MG ORAL CAPSULE 1 TAB PO Q HS TEMAZEPAM 45739005642 No Longer Active Robbie Busby MD Active TOPIRAMATE 50 MG ORAL TABLET 1 po BID for migraines TOPIRAMATE 59735202644 No Longer Active Robbie Busby MD Active CYCLOBENZAPRINE HCL 10 MG ORAL TABLET 1 tablet by mouth three times daily as needed for muscle spasm/pain CYCLOBENZAPRINE HCL 74424494034 No Longer Active Robbie Busby MD Active TOPROL XL 200 MG ORAL TABLET EXTENDED RELEASE 24 HOUR Take one by mouth daily METOPROLOL SUCCINATE 31697222801 No Longer Active Robbie Busby MD Active METFORMIN HCL 500 MG ORAL TABLET 1 tablet by mouth daily for diabetes type 2 METFORMIN HCL 65880625933 Active Robbie Busby MD Active SINGULAIR 10 MG ORAL TABLET 1 po qday for allergies. MONTELUKAST SODIUM 09193864569 No Longer Active Robbie Busby MD Active PREDNISONE 20 MG ORAL TABLET two tabs by mouth today, then one tab by mouth days two and three PREDNISONE 56100416048 No Longer Active Robbie Busby MD Active AZITHROMYCIN 250 MG ORAL TABLET 2 po qd x 1 day, then 1 po qd x 4 days 09/20 AZITHROMYCIN 06454525498 No Longer Active Desmond Diaz DO Active TOPIRAMATE 50 MG ORAL TABLET take 1 tab po BID for migraines. TOPIRAMATE 75891279004 No Longer Active Desmond Diaz DO Active CYCLOBENZAPRINE HCL 10 MG ORAL TABLET 1 po TID PRN muscle spasm/pain for 10 days CYCLOBENZAPRINE HCL 60285122215 No Longer Active Desmond Diaz DO Active GUAIFENESIN ER 600 MG ORAL TABLET EXTENDED RELEASE 12 HOUR 1 tab po q am 2016 GUAIFENESIN 51934685860 No Longer Active Robbie Busby MD Active DIVALPROEX SODIUM ER 500 MG ORAL TABLET EXTENDED RELEASE 24 HOUR Once daily DIVALPROEX SODIUM 24538200444 Active Robbie Busby MD Active DEPO-TESTOSTERONE 200 MG/ML INTRAMUSCULAR SOLUTION 1 IM Injections every 2 weeks for low testosterone TESTOSTERONE CYPIONATE 26555984936 Active Zulema Blank LPN Active FLUTICASONE PROPIONATE 50 MCG/ACT NASAL SUSPENSION 2 sprays per nostril bid for 1 week, then 1 spray bid FLUTICASONE PROPIONATE 07747904163 Active Rober Rodríguez APRN Active HYDRALAZINE HCL 25 MG ORAL TABLET Take 1 tab BID. HYDRALAZINE HCL 78547907756 Active Rober Rodríguez APRN Active VITAMIN D3 84982 UNIT ORAL TABLET 2 po weekly CHOLECALCIFEROL 08648520668 Active Robbie Busby MD Active OXYCODONE HCL ER 10 MG ORAL TABLET ER 12 HOUR ABUSE-DETERRENT 1 tab po 3 times qd. OXYCODONE HCL 91950791826 Active Robbie Busby MD Active NITROSTAT 0.4 MG SUBLINGUAL TABLET SUBLINGUAL PRN NITROGLYCERIN 54327595173 No Longer Active Robbie Busby MD Active LORATADINE 10 MG ORAL TABLET 1 tablet by mouth daily for congestion and allergies. LORATADINE 82345747791 No Longer Active Robbie Busby MD Active FLONASE 50 MCG/ACT NASAL SUSPENSION 1 spray each nostril twice daily for allergies and runny nose FLUTICASONE PROPIONATE 45819388011 No Longer Active Robbie Busby MD Active FIORICET 50-300-40 MG ORAL CAPSULE take 1 tab po qday prn migraines. [id number] 48972882849 No Longer Active Robbie Busby MD Active VITAMIN D3 97928 UNIT ORAL CAPSULE 2 CAPS PO WEEKLY CHOLECALCIFEROL 98025069790 No Longer Active Robbie Busby MD Active CYCLOBENZAPRINE HCL 10 MG ORAL TABLET 1 tablet by mouth three times daily as needed for muscle spasm/pain for 10 days CYCLOBENZAPRINE HCL 20207212387 No Longer Active Robbie Busby MD Active PREDNISONE 20 MG ORAL TABLET take 3 tabs daily for 3 days, 2 tabs daily for 3 days, 1 tab daily for 3 days, 1/2 tab daily for 4 days PREDNISONE 67668428434 No Longer Active Erin Mai APRN Active CLONIDINE HCL 0.2 MG ORAL TABLET 1 TAB BY MOUTH EVERY 8 HOURS CLONIDINE HCL 21525544728 No Longer Active Erin Mai APRN Active MECLIZINE HCL 25 MG ORAL TABLET one 4 times a day as needed for dizziness MECLIZINE HCL 24891368226 No Longer Active Erin Mai APRN Active SPIRONOLACTONE 25 MG ORAL TABLET 4 tablets by mouth daily SPIRONOLACTONE 38135030926 No Longer Active Erin Riverall TELEVISION AUDIO ENGINEER Active LEVAQUIN 500 MG ORAL TABLET 1 tablet by mouth daily for 7 days LEVOFLOXACIN 39175384188 No Longer Active Erin Mai TELEVISION AUDIO ENGINEER Active BACTRIM DS 800-160 MG ORAL TABLET 1 tab by mouth twice daily 2015 TRIMETHOPRIM-SULFAMETHOXAZOLE 00114859649 No Longer Active Robbie Busby MD Active HYDRALAZINE HCL 50 MG ORAL TABLET TWO BY MOUTH THREE TIMES DAILY HYDRALAZINE HCL 36853683903 No Longer Active Jillina Frazell TELEVISION AUDIO ENGINEER Active HYDROCODONE-ACETAMINOPHEN 5-325 MG ORAL TABLET 1 tab by mouth BID prn back pain HYDROCODONE-ACETAMINOPHEN 07470076241 No Longer Active Jillina Frazell TELEVISION AUDIO ENGINEER Active HYDROCHLOROTHIAZIDE TABLET Take one by mouth daily HYDROCHLOROTHIAZIDE TABS 83005674484 No Longer Active Jillina Frazell TELEVISION AUDIO ENGINEER Active LAMISIL 125 MG ORAL PACKET 1 TAB PO DAILY TERBINAFINE HCL 33363261823 No Longer Active Jillina Frazell TELEVISION AUDIO ENGINEER Active TRILEPTAL 150 MG ORAL TABLET 1 TAB PO Q HS OXCARBAZEPINE 14384833978 No Longer Active Jillina Frazell TELEVISION AUDIO ENGINEER Active BETADINE 10 % EXTERNAL SOLUTION 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 07/29 POVIDONE-IODINE 00121976148 No Longer Active Jillina Frazell TELEVISION AUDIO ENGINEER Active NYSTATIN 137079 UNIT/ML MOUTH/THROAT SUSPENSION 5mL po QID x 10 days NYSTATIN 96591854367 No Longer Active Erin Mai TELEVISION AUDIO ENGINEER Active PREDNISONE 20 MG ORAL TABLET 1 tablet twice daily for 2 days, then 1 tablet once daily for 2 days PREDNISONE 75511172288 No Longer Active Robbie Busby MD Active CEFDINIR 300 MG ORAL CAPSULE Take 1 cap po bid x 10 days CEFDINIR 71785135699 No Longer Active Robbie Busby MD Active AMLODIPINE BESYLATE 10 MG ORAL TABLET 1 tablet by mouth daily AMLODIPINE BESYLATE 96182359076 Active Robbie Busby MD Active CARVEDILOL 25 MG ORAL TABLET 1 & 1/2 TAB po BID CARVEDILOL 46278957092 Active Robbie Busby MD Active NEXIUM 40 MG ORAL CAPSULE DELAYED RELEASE 1 cap by mouth daily ESOMEPRAZOLE MAGNESIUM 10791808371 Active Robbie Busby MD Active PROTONIX 40 MG INTRAVENOUS SOLUTION RECONSTITUTED 1 po qday for acid reflux PANTOPRAZOLE SODIUM 50018826246 No Longer Active Galileonila Negro Active KEFLEX 500 MG ORAL CAPSULE 1 po TID x 10 days CEPHALEXIN 15358435144 No Longer Active Robbie Busby MD Active ALPRAZOLAM 2 MG ORAL TABLET 1 TAB PO BID ALPRAZOLAM 09266790677 Active Robbie Busby MD Active FENOFIBRATE 145 MG ORAL TABLET Take one by mouth daily FENOFIBRATE 63690875042 No Longer Active Robbie Busby MD Active SPIRONOLACTONE 50 MG ORAL TABLET 1 tablet by mouth twice a day SPIRONOLACTONE 99613396148 No Longer Active Robbie Busby MD Active HYDRALAZINE HCL 25 MG ORAL TABLET 1 tablet by mouth tid for hypertension 2013 HYDRALAZINE HCL 95394408044 No Longer Active Robbie Busby MD Active VIIBRYD 40 MG ORAL TABLET take 1 tab po qday for depression. 2014 VILAZODONE HCL 99152046663 No Longer Active Robbie Busby MD Active TERBINAFINE HCL 250 MG ORAL TABLET 1 tab po qday for foot infection TERBINAFINE HCL 51032747019 No Longer Active Robbie Busby MD Active GABAPENTIN 300 MG ORAL CAPSULE 1 po q hs for nerve pain GABAPENTIN 70252256105 Active Robbie Busby MD Active CHERATUSSIN AC 100-10 MG/5ML ORAL SOLUTION 7.5 mL PO q 4-6 hrs PRN cough 2014 GUAIFENESIN-CODEINE 82317818431 No Longer Active Robbie Busby MD Active AZITHROMYCIN 250 MG ORAL TABLET 2 tablets PO today---then, 1 tablet PO daily x 4 more days (and 1 optional refill) AZITHROMYCIN 14304995109 No Longer Active Robbie Busby MD Active NORVASC 10 MG ORAL TABLET 1 tablet by mouth daily AMLODIPINE BESYLATE 40424764018 No Longer Active Alex ALVAREZ Active ISOSORBIDE DINITRATE 30 MG ORAL TABLET Take one by mouth daily ISOSORBIDE DINITRATE 70889897993 No Longer Active Robbie Busby MD Active VIIBRYD 40 MG ORAL TABLET 1 TA B PO DAILY VILAZODONE HCL 99057532660 Active Robbie Busby MD Active ZITHROMAX 250 MG ORAL TABLET 2 po today, then 1 po q days 2-5 AZITHROMYCIN 79750612523 No Longer Active Robbie Busby MD Active DOXAZOSIN MESYLATE 4 MG ORAL TABLET Take one by mouth daily DOXAZOSIN MESYLATE 24478702292 Active Robbie Busby MD Active VENLAFAXINE HCL ER 150 MG ORAL TABLET EXTENDED RELEASE 24 HOUR Take one by mouth daily VENLAFAXINE HCL 07015660381 Active Robbie Busby MD Active LIPITOR 40 MG ORAL TABLET Take one by mouth daily ATORVASTATIN CALCIUM 86218738788 Active Robbie Busby MD Active ISOSORBIDE DINITRATE 30 MG ORAL TABLET Take one by mouth daily ISOSORBIDE DINITRATE 30 MG ORAL TABLET 385741 ISOSORBIDE DINITRATE Inactive NORVASC 10 MG ORAL TABLET 1 tablet by mouth daily NORVASC 10 MG ORAL TABLET 134957 AMLODIPINE BESYLATE Inactive AZITHROMYCIN 250 MG ORAL TABLET 2 tablets PO today---then, 1 tablet PO daily x 4 more days (and 1 optional refill) AZITHROMYCIN 250 MG ORAL TABLET 736728 AZITHROMYCIN Inactive CHERATUSSIN AC 100-10 MG/5ML ORAL SOLUTION 7.5 mL PO q 4-6 hrs PRN cough 2014 CHERATUSSIN AC 100-10 MG/5ML ORAL SOLUTION 587622 GUAIFENESIN-CODEINE Inactive VIIBRYD 40 MG ORAL TABLET take 1 tab po qday for depression. 2014 VIIBRYD 40 MG ORAL TABLET VILAZODONE HCL Inactive HYDRALAZINE HCL 25 MG ORAL TABLET 1 tablet by mouth tid for hypertension 2013 HYDRALAZINE HCL 25 MG ORAL TABLET 376893 HYDRALAZINE HCL Inactive SPIRONOLACTONE 50 MG ORAL TABLET 1 tablet by mouth twice a day SPIRONOLACTONE 50 MG ORAL TABLET 828682 SPIRONOLACTONE Inactive FENOFIBRATE 145 MG ORAL TABLET Take one by mouth daily FENOFIBRATE 145 MG ORAL TABLET 260440 FENOFIBRATE Inactive PROTONIX 40 MG INTRAVENOUS SOLUTION RECONSTITUTED 1 po qday for acid reflux PROTONIX 40 MG INTRAVENOUS SOLUTION RECONSTITUTED 452102 PANTOPRAZOLE SODIUM Inactive CEFDINIR 300 MG ORAL CAPSULE Take 1 cap po bid x 10 days CEFDINIR 300 MG ORAL CAPSULE 779303 CEFDINIR Inactive PREDNISONE 20 MG ORAL TABLET 1 tablet twice daily for 2 days, then 1 tablet once daily for 2 days PREDNISONE 20 MG ORAL TABLET 882760 PREDNISONE Inactive NYSTATIN 926793 UNIT/ML MOUTH/THROAT SUSPENSION 5mL po QID x 10 days NYSTATIN 062536 UNIT/ML MOUTH/THROAT SUSPENSION 431534 NYSTATIN Inactive BETADINE 10 % EXTERNAL SOLUTION 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 07/29 BETADINE 10 % EXTERNAL SOLUTION 6413817 POVIDONE-IODINE Inactive TRILEPTAL 150 MG ORAL TABLET 1 TAB PO Q HS TRILEPTAL 150 MG ORAL TABLET 962978 OXCARBAZEPINE Inactive LAMISIL 125 MG ORAL PACKET 1 TAB PO DAILY LAMISIL 125 MG ORAL PACKET TERBINAFINE HCL Inactive HYDROCHLOROTHIAZIDE TABLET Take one by mouth daily HYDROCHLOROTHIAZIDE TABLET HYDROCHLOROTHIAZIDE TABS Inactive HYDROCODONE-ACETAMINOPHEN 5-325 MG ORAL TABLET 1 tab by mouth BID prn back pain HYDROCODONE-ACETAMINOPHEN 5-325 MG ORAL TABLET 196680 HYDROCODONE-ACETAMINOPHEN Inactive HYDRALAZINE HCL 50 MG ORAL TABLET TWO BY MOUTH THREE TIMES DAILY HYDRALAZINE HCL 50 MG ORAL TABLET 340314 HYDRALAZINE HCL Inactive LEVAQUIN 500 MG ORAL TABLET 1 tablet by mouth daily for 7 days LEVAQUIN 500 MG ORAL TABLET 878873 LEVOFLOXACIN Inactive SPIRONOLACTONE 25 MG ORAL TABLET 4 tablets by mouth daily SPIRONOLACTONE 25 MG ORAL TABLET 091121 SPIRONOLACTONE Inactive MECLIZINE HCL 25 MG ORAL TABLET one 4 times a day as needed for dizziness MECLIZINE HCL 25 MG ORAL TABLET 945061 MECLIZINE HCL Inactive CLONIDINE HCL 0.2 MG ORAL TABLET 1 TAB BY MOUTH EVERY 8 HOURS CLONIDINE HCL 0.2 MG ORAL TABLET 738186 CLONIDINE HCL Inactive CYCLOBENZAPRINE HCL 10 MG ORAL TABLET 1 tablet by mouth three times daily as needed for muscle spasm/pain for 10 days CYCLOBENZAPRINE HCL 10 MG ORAL TABLET 284068 CYCLOBENZAPRINE HCL Inactive VITAMIN D3 26200 UNIT ORAL CAPSULE 2 CAPS PO WEEKLY VITAMIN D3 88221 UNIT ORAL CAPSULE CHOLECALCIFEROL Inactive FIORICET 50-300-40 MG ORAL CAPSULE take 1 tab po qday prn migraines. FIORICET 50-300-40 MG ORAL CAPSULE 912452 BUTALBITAL-APAP- CAFFEINE Inactive FLONASE 50 MCG/ACT NASAL SUSPENSION 1 spray each nostril twice daily for allergies and runny nose FLONASE 50 MCG/ACT NASAL SUSPENSION 9653496 FLUTICASONE PROPIONATE Inactive LORATADINE 10 MG ORAL TABLET 1 tablet by mouth daily for congestion and allergies. LORATADINE 10 MG ORAL TABLET 725504 LORATADINE Inactive NITROSTAT 0.4 MG SUBLINGUAL TABLET SUBLINGUAL PRN NITROSTAT 0.4 MG SUBLINGUAL TABLET SUBLINGUAL 775192 NITROGLYCERIN Inactive GUAIFENESIN ER 600 MG ORAL TABLET EXTENDED RELEASE 12 HOUR 1 tab po q am 2016 GUAIFENESIN ER 600 MG ORAL TABLET EXTENDED RELEASE 12 HOUR GUAIFENESIN Inactive CYCLOBENZAPRINE HCL 10 MG ORAL TABLET 1 po TID PRN muscle spasm/pain for 10 days CYCLOBENZAPRINE HCL 10 MG ORAL TABLET 744998 CYCLOBENZAPRINE HCL Inactive TOPIRAMATE 50 MG ORAL TABLET take 1 tab po BID for migraines. TOPIRAMATE 50 MG ORAL TABLET 190561 TOPIRAMATE Inactive PREDNISONE 20 MG ORAL TABLET two tabs by mouth today, then one tab by mouth days two and three PREDNISONE 20 MG ORAL TABLET 671504 PREDNISONE Inactive TOPROL XL 200 MG ORAL TABLET EXTENDED RELEASE 24 HOUR Take one by mouth daily TOPROL XL 200 MG ORAL TABLET EXTENDED RELEASE 24 HOUR METOPROLOL SUCCINATE Inactive CYCLOBENZAPRINE HCL 10 MG ORAL TABLET 1 tablet by mouth three times daily as needed for muscle spasm/pain CYCLOBENZAPRINE HCL 10 MG ORAL TABLET 605158 CYCLOBENZAPRINE HCL Inactive TOPIRAMATE 50 MG ORAL TABLET 1 po BID for migraines TOPIRAMATE 50 MG ORAL TABLET 939884 TOPIRAMATE Inactive TEMAZEPAM 15 MG ORAL CAPSULE 1 TAB PO Q HS TEMAZEPAM 15 MG ORAL CAPSULE 156427 TEMAZEPAM Inactive IMDUR 60 MG ORAL TABLET EXTENDED RELEASE 24 HOUR take 1 tab po qday for blood pressure IMDUR 60 MG ORAL TABLET EXTENDED RELEASE 24 HOUR ISOSORBIDE MONONITRATE Inactive [id number]-XTV-1 0.3 MG/24HR TRANSDERMAL PATCH WEEKLY apply 2 patches q week for HTN [id number]-GQC-7 0.3 MG/24HR TRANSDERMAL PATCH WEEKLY 917355 CLONIDINE HCL Inactive ZITHROMAX 250 MG ORAL TABLET 2 po today, then 1 po q days 2-5 ZITHROMAX 250 MG ORAL TABLET 237316 AZITHROMYCIN Inactive TERBINAFINE HCL 250 MG ORAL TABLET 1 tab po qday for foot infection TERBINAFINE HCL 250 MG ORAL TABLET 740926 TERBINAFINE HCL Inactive KEFLEX 500 MG ORAL CAPSULE 1 po TID x 10 days KEFLEX 500 MG ORAL CAPSULE 407617 CEPHALEXIN Inactive BACTRIM DS 800-160 MG ORAL TABLET 1 tab by mouth twice daily 2015 BACTRIM DS 800-160 MG ORAL TABLET 192152 TRIMETHOPRIM- SULFAMETHOXAZOLE Inactive PREDNISONE 20 MG ORAL TABLET take 3 tabs daily for 3 days, 2 tabs daily for 3 days, 1 tab daily for 3 days, 1/2 tab daily for 4 days PREDNISONE 20 MG ORAL TABLET 865841 PREDNISONE Inactive AZITHROMYCIN 250 MG ORAL TABLET 2 po qd x 1 day, then 1 po qd x 4 days 09/20 AZITHROMYCIN 250 MG ORAL TABLET 407421 AZITHROMYCIN Inactive SINGULAIR 10 MG ORAL TABLET 1 po qday for allergies. SINGULAIR 10 MG ORAL TABLET 365424 MONTELUKAST SODIUM Inactive Advance Directives Directive Description [...] AUTO - Chemistry sodium, serum 142 mmol/L 751-049 5097/07/17 carbon dioxide, venous blood 28.2 mmol/L 21.0-32.0 [...] % 11.0-15.0 platelet count 185 THOUSAND/UL 10*3/mm3 338-579 3539/04/14 mean platelet volume 10.9 fL 7.5-12.5 Lab Report: Comp. Metabolic Panel - Chemistry sodium, serum 141 mmol/L 351-066 5170/02/13 carbon dioxide, venous blood 23.9 mmol/L 21.0-32.0 [...] 6.9 % 4.3-6.0 sodium, serum 139 mmol/L 267-838 3587/01/04 potassium, serum 3.9 mmol/L 3.5-5.2 chloride, serum 103 mmol/L 98-107 carbon dioxide, venous blood 26.9 mmol/L 21.0-32.0 blood glucose 106 mg/dL 65-110 calcium, serum 9.0 mg/dL 8.5-10.1 urea nitrogen, blood 20 mg/dL 7-18 creatinine, serum 1.46 mg/dL 0.60-1.30 Lab Report: LIPID PANEL, TSH/899, T4, FREE/866 - Chemistry cholesterol, serum 220 mg/dL 949-404 7680/04/14 HDL cholesterol, serum 30 mg/dL > OR=40 [...] 1.80 ng/mL 0.00-4.00 Lab Report: VITAMIN D, 25-HYDROXY/50455 - Chemistry vitamin D 25-hydroxy, serum 25 ng/mL 30-100 Office Visit: Confusion, dizziness after fall - Basic LDL target level 130 mg/dL Office Visit: Confusion, dizziness after fall - Chemistry HDL cholesterol, serum, target level 40 mg/dL triglyceride, target level 150 mg/dL cholesterol, target level 200 mg/dL Encounters Code Encounter Date Provider Facility CPT-82200 Level 4 Est. Patient 09:50:01 [employer]UBE [employer] Robbie Busby MD [facility] CPT-14207 Level 4 Est. Patient 09:42:08 [employer]UBE [employer]ATER Robbie Busby MD [facility] CPT-17435 Level 4 Est. Patient 13:07:39 TUBE [employer]ATER Robbie Busby MD [facility] CPT-77341 Level 4 Est. Patient 15:23:44 [employer]UBE [employer]ATER Desmond Diaz DO [facility] CPT-52190 Level 3 Est. Patient 15:40:49 CDT Robbie Busby MD [facility] CPT-38507 Level 4 Est. Patient 15:18:19 CDT Robbie Busby MD [facility] CPT-07510 Level 3 Est. Patient 09:00:37 CDT Rober Rodríguez APRN [facility] CPT-28630 Level 3 Est. Patient 16:07:10 CDT Robbie Busby MD [facility] CPT-73380 Level 4 Est. Patient 11:56:16 CDT Erin Miguelzane [facility] CPT-46072 Level 3 Est. Patient 17:48:02 CDT Robbie Busby MD [facility] CPT-81881 Level 4 Est. Patient 12:00:49 [employer]UBE [employer]ATER Rober Rodolfoneha [facility] CPT-25359 Level 3 Est. Patient 09:16:37 CDT Robbie Busby MD [facility] CPT-26460 Level 3 Est. Patient 19:38:43 CDT Robbie Busby MD [facility]-60628 Level 3 Est. Patient 11:53:38 CDT Robbie Busby MD [facility] CPT-40361 Level 4 Est. Patient 12:52:22 CDT Rober Rodolfoneha [facility] CPT-55344 Level 4 Est. Patient 22:55:17 CDT Robbie Busby MD [facility] CPT-58500 Level 3 Est. Patient 12:38:24 CDT Desmond Diaz DO [facility] CPT-75582 Level 4 Est. 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 Patient 14:50:10 CDT Robbie Busby MD [facility] CPT-31848 Level 4 Est. Patient 23:30:43 CDT Robbie Busby MD [facility] CPT-51387 Level 4 Est. Patient 10:30:43 CDT Robbie Busby MD [facility] CPT-50245 Level 3 Est. Patient 17:08:12 CDT Alex ALVAREZ [facility] CPT-84006 Level 4 Est. Patient 17:51:38 CDT Robbie Busby MD [facility] CPT-02887 Level 4 Est. Patient 14:00:21 CDT Robbie Busby MD [facility] CPT-53448 Level 4 Est. Patient 12:46:48 CDT Robbie Busby MD [facility] CPT-77615 Level 4 Est. Patient 13:34:33 CDT Robbie Busby MD [facility] CPT-24537 Level 4 Est. Patient 16:58:28 CDT Robbie Busby MD [facility] CPT-00004 Level 3 Est. Patient 19:36:53 CDT Alex ALVAREZ [facility] CPT-13621 Level 3 Est. Patient 12:58:15 CDT Robbie Busby MD [facility] Procedures Code Procedure Name Date Entry Date Standard Description CPT-J1071 Depo Testosterone 200mg 16:10:29 [facility] CPT-36815 Abx/Therapy Injection 16:10:29 [facility] CPT-J1071 Depo Testosterone 200mg 16:13:47 [facility] CPT-58169 Abx/Therapy Injection 16:13:46 [facility] CPT-J1071 Depo Testosterone 200mg 15:33:58 [employer] CPT-81669 Abx/Therapy Injection 15:33:58 [facility] CPT-J1071 Depo Testosterone 200mg 09:38:36 [employer] CPT-40139 Abx/Therapy Injection 09:38:36 [employer] CPT-J1071 Depo Testosterone 200mg 10:22:56 [employer] CPT-21882 Abx/Therapy Injection 10:22:56 [employer] CPT-J1071 Depo Testosterone 200mg 15:40:23 CDT CPT-14071 Abx/Therapy Injection 15:40:23 CDT CPT-J1071 Depo Testosterone 200mg 14:20:43 CDT CPT-00577 Abx/Therapy Injection 14:20:43 CDT CPT-J1071 Depo Testosterone 200mg 14:17:22 CDT CPT-66205 Abx/Therapy Injection 14:17:22 CDT CPT-J1071 Depo Testosterone 200mg 09:03:53 CDT CPT-79220 Abx/Therapy Injection 09:03:53 CDT CPT-G0439 [facility] Annual Wellness Exam 16:47:44 CDT CPT-J1071 Depo Testosterone 200mg 09:06:28 CDT CPT-13727 Abx/Therapy Injection 09:06:28 CDT CPT-J1071 Depo Testosterone 200mg 08:30:01 CDT CPT-62927 Abx/Therapy Injection 08:30:01 CDT CPT-J1071 Depo Testosterone 200mg 08:24:00 CDT CPT-39362 Abx/Therapy Injection 08:24:00 CDT CPT-16467 Venipuncture Draw Fee 14:39:06 CDT CPT-43115 Ribs unilateral 2V - XRAY USE ONLY 12:10:11 CDT CPT-58868 First Vx - Ix admin for Medicare patients 16:32:53 CDT CPT-66748 Boostrix Intramuscular Suspension 5-2.5-18.5 16:32:53 CDT CPT-43605 TB Skin Test 11:42:28 CDT CPT-39630 Tdap 7yrs or > 11:42:28 CDT CPT-J0696 Rocephin 1000 mg (Ceftriaxone) 17:43:43 [employer] CPT-J1040 Depo Medrol 80 mg (Methyl Prednisolone Acetate) 17:43: 43 [employer] CPT-J1100 Decadron 8mg (Dexamethasone) 17:43:42 [employer] CPT-35620 Abx/Therapy Injection 17:43:42 [employer] CPT-93090 Abx/Therapy Injection 17:43:42 [employer] CPT-J1040 Depo Medrol 80 mg (Methyl Prednisolone Acetate) 09:43: 34 [employer] CPT-J1100 Decadron 8mg (Dexamethasone) 09:43:34 TUBE COATER CPT-J0696 Rocephin 1gm Inj Solr 09:43:34 TUBE COATER CPT-89241 Wound Culture - LAB USE ONLY 14:00:21 CDT CPT-I/D I/D Abscess 09:16:37 CDT CPT-43956 Venipuncture Draw Fee 15:20:23 CDT CPT-69608 Microalbumin - LAB USE ONLY 16:02:19 CDT CPT-67239 CBC - LAB USE ONLY 16:02:19 CDT CPT-86686 Venipuncture Draw Fee 16:02:19 CDT CPT-G0438 Initial Annual Wellness Exam 08:10:28 CDT CPT-72839 Venipuncture Draw Fee 13:07:17 CDT CPT-G0008 Administration of Influenza Virus Vaccine 16:09:59 CDT CPT-53829 Fluzone Quadrivalent Intramuscular Suspension 0.5 ML 16: 09:59 CDT CPT-96620 Spec Collection and Handling Fee 15:05:50 CDT
--- OUTSIDE RECORDS SUMMARY | 2018-04-18 11:16 | XMS REPORT | Clinical Summary ---
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 Desmond Diaz DO Other malignant secondary hypertension Tachycardia 785.0 Active Rober Rodríguez PAIN MANAGEMENT NURSE Tachycardia, unspecified Insect bite, infected 919.5 Resolved Desmond Diaz DO Insect bite, nonvenomous, of other, multiple, and unspecified sites, infected Abscess, skin 682.9 Resolved Desmond Diaz DO Cellulitis and abscess of unspecified sites URI 465.9 Resolved Desmond Diaz DO Acute upper respiratory infections of unspecified site Hypertension 401.9 Active Rober Rodríguez PAIN MANAGEMENT NURSE Unspecified essential hypertension Sinusitis - acute 461.9 [...] Hypogonadism, low testosterone 257.2 Active Erin Mai PAIN MANAGEMENT NURSE Other testicular hypofunction Low back pain, chronic [...] 37.0-37.9, adult Sinusitis ICD-461.9 Inactive Emily Atwood UROLOGIC NURSE 2017 Low back pain, acute ICD-724.2 Inactive Emily Atwood UROLOGIC NURSE Low back pain, chronic ICD-724.2 Inactive Emily Atwood UROLOGIC NURSE Bronchitis, acute ICD-466.0 Inactive Emily Atwood UROLOGIC NURSE Onychomycosis, toenails ICD-110.1 Inactive Emily Atwood UROLOGIC NURSE Dizziness ICD-780.4 Inactive Emily Atwood UROLOGIC NURSE 2017 Folliculitis ICD-704.8 Inactive Emily Atwood UROLOGIC NURSE Pharyngitis-Acute ICD-462 Inactive Emily Atwood UROLOGIC NURSE Fatigue ICD-780.79 Inactive Emily Atwood UROLOGIC NURSE 09/20 Hypertension, secondary, malignant ICD-405.09 Inactive Emily Atwood UROLOGIC NURSE Insect bite, infected ICD-919.5 Inactive Emily Atwood UROLOGIC NURSE Abscess, skin ICD-682.9 Inactive Emily Atwood UROLOGIC NURSE URI ICD-465.9 Inactive Emily Atwood UROLOGIC NURSE Sinusitis - acute ICD-461.9 Inactive Emily Atwood UROLOGIC NURSE Acute confusion ICD-293.0 Inactive Emily Atwood UROLOGIC NURSE Headache ICD-784.0 Inactive Emily Solisnae CISSE 09/20 [...] HOUR 1 po q day ISOSORBIDE MONONITRATE 36339234685 Active Emma Hernandez Active METOPROLOL SUCCINATE ER 200 MG ORAL TABLET EXTENDED RELEASE 24 HOUR take 1 tab po qday for high blood pressure and rapid pulse METOPROLOL SUCCINATE 57515578955 Active Robbie Busby MD Active [id number]-8 0.3 MG/24HR TRANSDERMAL PATCH WEEKLY apply 2 patches q week for HTN CLONIDINE HCL 99668327631 No Longer Active Robbie Busby MD Active IMDUR 60 MG ORAL TABLET EXTENDED RELEASE 24 HOUR take 1 tab po qday for blood pressure ISOSORBIDE MONONITRATE 34100999054 No Longer Active Robbie Busby MD Active TEMAZEPAM 15 MG ORAL CAPSULE 1 TAB PO Q HS TEMAZEPAM 03651348863 No Longer Active Robbie Busby MD Active TOPIRAMATE 50 MG ORAL TABLET 1 po BID for migraines TOPIRAMATE 13384516749 No Longer Active Robbie Busby MD Active CYCLOBENZAPRINE HCL 10 MG ORAL TABLET 1 tablet by mouth three times daily as needed for muscle spasm/pain CYCLOBENZAPRINE HCL 83373574495 No Longer Active Robbie Busby MD Active TOPROL XL 200 MG ORAL TABLET EXTENDED RELEASE 24 HOUR Take one by mouth daily METOPROLOL SUCCINATE 04957814501 No Longer Active Robbie Busby MD Active METFORMIN HCL 500 MG ORAL TABLET 1 tablet by mouth daily for diabetes type 2 METFORMIN HCL 69818007110 Active Robbie Busby MD Active SINGULAIR 10 MG ORAL TABLET 1 po qday for allergies. MONTELUKAST SODIUM 31879448814 No Longer Active Robbie Busby MD Active PREDNISONE 20 MG ORAL TABLET two tabs by mouth today, then one tab by mouth days two and three PREDNISONE 65389530680 No Longer Active Robbie Busby MD Active AZITHROMYCIN 250 MG ORAL TABLET 2 po qd x 1 day, then 1 po qd x 4 days 09/20 AZITHROMYCIN 67219851062 No Longer Active Desmond Diaz DO Active TOPIRAMATE 50 MG ORAL TABLET take 1 tab po BID for migraines. TOPIRAMATE 32795184169 No Longer Active Desmond Diaz DO Active CYCLOBENZAPRINE HCL 10 MG ORAL TABLET 1 po TID PRN muscle spasm/pain for 10 days CYCLOBENZAPRINE HCL 35322126639 No Longer Active Desmond Diaz DO Active GUAIFENESIN ER 600 MG ORAL TABLET EXTENDED RELEASE 12 HOUR 1 tab po q am 2016 GUAIFENESIN 11171193214 No Longer Active Robbie Busby MD Active DIVALPROEX SODIUM ER 500 MG ORAL TABLET EXTENDED RELEASE 24 HOUR Once daily DIVALPROEX SODIUM 17069687344 Active Robbie Busby MD Active DEPO-TESTOSTERONE 200 MG/ML INTRAMUSCULAR SOLUTION 1 IM Injections every 2 weeks for low testosterone TESTOSTERONE CYPIONATE 49159213404 Active Zulema Blank LPN Active FLUTICASONE PROPIONATE 50 MCG/ACT NASAL SUSPENSION 2 sprays per nostril bid for 1 week, then 1 spray bid FLUTICASONE PROPIONATE 13089251370 Active Rober Rodríguez APRN Active HYDRALAZINE HCL 25 MG ORAL TABLET Take 1 tab BID. HYDRALAZINE HCL 73884286498 Active Rober Rodríguez APRN Active VITAMIN D3 72760 UNIT ORAL TABLET 2 po weekly CHOLECALCIFEROL 12308430186 Active Robbie Busby MD Active OXYCODONE HCL ER 10 MG ORAL TABLET ER 12 HOUR ABUSE-DETERRENT 1 tab po 3 times qd. OXYCODONE HCL 52646205889 Active Robbie Busby MD Active NITROSTAT 0.4 MG SUBLINGUAL TABLET SUBLINGUAL PRN NITROGLYCERIN 40360799842 No Longer Active Robbie Busby MD Active LORATADINE 10 MG ORAL TABLET 1 tablet by mouth daily for congestion and allergies. LORATADINE 39927733120 No Longer Active Robbie Busby MD Active FLONASE 50 MCG/ACT NASAL SUSPENSION 1 spray each nostril twice daily for allergies and runny nose FLUTICASONE PROPIONATE 24469663691 No Longer Active Robbie Busby MD Active FIORICET 50-300-40 MG ORAL CAPSULE take 1 tab po qday prn migraines. [id number] 92584445524 No Longer Active Robbie Busby MD Active VITAMIN D3 64856 UNIT ORAL CAPSULE 2 CAPS PO WEEKLY CHOLECALCIFEROL 18140961389 No Longer Active Robbie Busby MD Active CYCLOBENZAPRINE HCL 10 MG ORAL TABLET 1 tablet by mouth three times daily as needed for muscle spasm/pain for 10 days CYCLOBENZAPRINE HCL 48373402652 No Longer Active Robbie Busby MD Active PREDNISONE 20 MG ORAL TABLET take 3 tabs daily for 3 days, 2 tabs daily for 3 days, 1 tab daily for 3 days, 1/2 tab daily for 4 days PREDNISONE 74848807058 No Longer Active Erin Mai APRN Active CLONIDINE HCL 0.2 MG ORAL TABLET 1 TAB BY MOUTH EVERY 8 HOURS CLONIDINE HCL 90382866354 No Longer Active Erin Mai APRN Active MECLIZINE HCL 25 MG ORAL TABLET one 4 times a day as needed for dizziness MECLIZINE HCL 09621032558 No Longer Active Erin Mai APRN Active SPIRONOLACTONE 25 MG ORAL TABLET 4 tablets by mouth daily SPIRONOLACTONE 38400802393 No Longer Active Erin Riverall PAIN MANAGEMENT NURSE Active LEVAQUIN 500 MG ORAL TABLET 1 tablet by mouth daily for 7 days LEVOFLOXACIN 18118481770 No Longer Active Erin Mai PAIN MANAGEMENT NURSE Active BACTRIM DS 800-160 MG ORAL TABLET 1 tab by mouth twice daily 2015 TRIMETHOPRIM-SULFAMETHOXAZOLE 52611633413 No Longer Active Robbie Busby MD Active HYDRALAZINE HCL 50 MG ORAL TABLET TWO BY MOUTH THREE TIMES DAILY HYDRALAZINE HCL 70869524768 No Longer Active Andrellina Frazell PAIN MANAGEMENT NURSE Active HYDROCODONE-ACETAMINOPHEN 5-325 MG ORAL TABLET 1 tab by mouth BID prn back pain HYDROCODONE-ACETAMINOPHEN 73264689126 No Longer Active Jillina Frazell PAIN MANAGEMENT NURSE Active HYDROCHLOROTHIAZIDE TABLET Take one by mouth daily HYDROCHLOROTHIAZIDE TABS 37185357845 No Longer Active Jillina Frazell PAIN MANAGEMENT NURSE Active LAMISIL 125 MG ORAL PACKET 1 TAB PO DAILY TERBINAFINE HCL 32252245128 No Longer Active Jillina Frazell PAIN MANAGEMENT NURSE Active TRILEPTAL 150 MG ORAL TABLET 1 TAB PO Q HS OXCARBAZEPINE 03891188848 No Longer Active Jillina Frazell PAIN MANAGEMENT NURSE Active BETADINE 10 % EXTERNAL SOLUTION 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 07/29 POVIDONE-IODINE 31264351196 No Longer Active Jillina Frazell PAIN MANAGEMENT NURSE Active NYSTATIN 401654 UNIT/ML MOUTH/THROAT SUSPENSION 5mL po QID x 10 days NYSTATIN 47860235395 No Longer Active Erin Mai PAIN MANAGEMENT NURSE Active PREDNISONE 20 MG ORAL TABLET 1 tablet twice daily for 2 days, then 1 tablet once daily for 2 days PREDNISONE 08460137021 No Longer Active Robbie Busby MD Active CEFDINIR 300 MG ORAL CAPSULE Take 1 cap po bid x 10 days CEFDINIR 21690902508 No Longer Active Robbie Busby MD Active AMLODIPINE BESYLATE 10 MG ORAL TABLET 1 tablet by mouth daily AMLODIPINE BESYLATE 68457296921 Active Robbie Busby MD Active CARVEDILOL 25 MG ORAL TABLET 1 & 1/2 TAB po BID CARVEDILOL 71842719163 Active Robbie Busby MD Active NEXIUM 40 MG ORAL CAPSULE DELAYED RELEASE 1 cap by mouth daily ESOMEPRAZOLE MAGNESIUM 17706787922 Active Robbie Busby MD Active PROTONIX 40 MG INTRAVENOUS SOLUTION RECONSTITUTED 1 po qday for acid reflux PANTOPRAZOLE SODIUM 69542837310 No Longer Active Galileonila Negro Active KEFLEX 500 MG ORAL CAPSULE 1 po TID x 10 days CEPHALEXIN 51441429870 No Longer Active Robbie Busby MD Active ALPRAZOLAM 2 MG ORAL TABLET 1 TAB PO BID ALPRAZOLAM 70846655499 Active Robbie Busby MD Active FENOFIBRATE 145 MG ORAL TABLET Take one by mouth daily FENOFIBRATE 60232995508 No Longer Active Robbie Busby MD Active SPIRONOLACTONE 50 MG ORAL TABLET 1 tablet by mouth twice a day SPIRONOLACTONE 60982272103 No Longer Active Robbie Busby MD Active HYDRALAZINE HCL 25 MG ORAL TABLET 1 tablet by mouth tid for hypertension 2013 HYDRALAZINE HCL 93466415423 No Longer Active Robbie Busby MD Active VIIBRYD 40 MG ORAL TABLET take 1 tab po qday for depression. 2014 VILAZODONE HCL 53406354948 No Longer Active Robbie Busby MD Active TERBINAFINE HCL 250 MG ORAL TABLET 1 tab po qday for foot infection TERBINAFINE HCL 35439875201 No Longer Active Robbie Busby MD Active GABAPENTIN 300 MG ORAL CAPSULE 1 po q hs for nerve pain GABAPENTIN 60754176322 Active Robbie Busby MD Active CHERATUSSIN AC 100-10 MG/5ML ORAL SOLUTION 7.5 mL PO q 4-6 hrs PRN cough 2014 GUAIFENESIN-CODEINE 17319107660 No Longer Active Robbie Busby MD Active AZITHROMYCIN 250 MG ORAL TABLET 2 tablets PO today---then, 1 tablet PO daily x 4 more days (and 1 optional refill) AZITHROMYCIN 18851713139 No Longer Active Robbie Busby MD Active NORVASC 10 MG ORAL TABLET 1 tablet by mouth daily AMLODIPINE BESYLATE 24045138671 No Longer Active Alex ALVAREZ Active ISOSORBIDE DINITRATE 30 MG ORAL TABLET Take one by mouth daily ISOSORBIDE DINITRATE 31104385157 No Longer Active Robbie Busby MD Active VIIBRYD 40 MG ORAL TABLET 1 TA B PO DAILY VILAZODONE HCL 93526278474 Active Robbie Busby MD Active ZITHROMAX 250 MG ORAL TABLET 2 po today, then 1 po q days 2-5 AZITHROMYCIN 46174889915 No Longer Active Robbie Busby MD Active DOXAZOSIN MESYLATE 4 MG ORAL TABLET Take one by mouth daily DOXAZOSIN MESYLATE 42666658446 Active Robbie Busby MD Active VENLAFAXINE HCL ER 150 MG ORAL TABLET EXTENDED RELEASE 24 HOUR Take one by mouth daily VENLAFAXINE HCL 94196559116 Active Robbie Busby MD Active LIPITOR 40 MG ORAL TABLET Take one by mouth daily ATORVASTATIN CALCIUM 23768374377 Active Robbie Busby MD Active ISOSORBIDE DINITRATE 30 MG ORAL TABLET Take one by mouth daily ISOSORBIDE DINITRATE 30 MG ORAL TABLET 193188 ISOSORBIDE DINITRATE Inactive NORVASC 10 MG ORAL TABLET 1 tablet by mouth daily NORVASC 10 MG ORAL TABLET 699390 AMLODIPINE BESYLATE Inactive AZITHROMYCIN 250 MG ORAL TABLET 2 tablets PO today---then, 1 tablet PO daily x 4 more days (and 1 optional refill) AZITHROMYCIN 250 MG ORAL TABLET 366287 AZITHROMYCIN Inactive CHERATUSSIN AC 100-10 MG/5ML ORAL SOLUTION 7.5 mL PO q 4-6 hrs PRN cough 2014 CHERATUSSIN AC 100-10 MG/5ML ORAL SOLUTION 183636 GUAIFENESIN-CODEINE Inactive VIIBRYD 40 MG ORAL TABLET take 1 tab po qday for depression. 2014 VIIBRYD 40 MG ORAL TABLET VILAZODONE HCL Inactive HYDRALAZINE HCL 25 MG ORAL TABLET 1 tablet by mouth tid for hypertension 2013 HYDRALAZINE HCL 25 MG ORAL TABLET 514321 HYDRALAZINE HCL Inactive SPIRONOLACTONE 50 MG ORAL TABLET 1 tablet by mouth twice a day SPIRONOLACTONE 50 MG ORAL TABLET 282527 SPIRONOLACTONE Inactive FENOFIBRATE 145 MG ORAL TABLET Take one by mouth daily FENOFIBRATE 145 MG ORAL TABLET 381155 FENOFIBRATE Inactive PROTONIX 40 MG INTRAVENOUS SOLUTION RECONSTITUTED 1 po qday for acid reflux PROTONIX 40 MG INTRAVENOUS SOLUTION RECONSTITUTED 187467 PANTOPRAZOLE SODIUM Inactive CEFDINIR 300 MG ORAL CAPSULE Take 1 cap po bid x 10 days CEFDINIR 300 MG ORAL CAPSULE 464113 CEFDINIR Inactive PREDNISONE 20 MG ORAL TABLET 1 tablet twice daily for 2 days, then 1 tablet once daily for 2 days PREDNISONE 20 MG ORAL TABLET 281634 PREDNISONE Inactive NYSTATIN 318740 UNIT/ML MOUTH/THROAT SUSPENSION 5mL po QID x 10 days NYSTATIN 798884 UNIT/ML MOUTH/THROAT SUSPENSION 101958 NYSTATIN Inactive BETADINE 10 % EXTERNAL SOLUTION 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 07/29 BETADINE 10 % EXTERNAL SOLUTION 1770671 POVIDONE-IODINE Inactive TRILEPTAL 150 MG ORAL TABLET 1 TAB PO Q HS TRILEPTAL 150 MG ORAL TABLET 703637 OXCARBAZEPINE Inactive LAMISIL 125 MG ORAL PACKET 1 TAB PO DAILY LAMISIL 125 MG ORAL PACKET TERBINAFINE HCL Inactive HYDROCHLOROTHIAZIDE TABLET Take one by mouth daily HYDROCHLOROTHIAZIDE TABLET HYDROCHLOROTHIAZIDE TABS Inactive HYDROCODONE-ACETAMINOPHEN 5-325 MG ORAL TABLET 1 tab by mouth BID prn back pain HYDROCODONE-ACETAMINOPHEN 5-325 MG ORAL TABLET 714590 HYDROCODONE-ACETAMINOPHEN Inactive HYDRALAZINE HCL 50 MG ORAL TABLET TWO BY MOUTH THREE TIMES DAILY HYDRALAZINE HCL 50 MG ORAL TABLET 707295 HYDRALAZINE HCL Inactive LEVAQUIN 500 MG ORAL TABLET 1 tablet by mouth daily for 7 days LEVAQUIN 500 MG ORAL TABLET 555588 LEVOFLOXACIN Inactive SPIRONOLACTONE 25 MG ORAL TABLET 4 tablets by mouth daily SPIRONOLACTONE 25 MG ORAL TABLET 041773 SPIRONOLACTONE Inactive MECLIZINE HCL 25 MG ORAL TABLET one 4 times a day as needed for dizziness MECLIZINE HCL 25 MG ORAL TABLET 045758 MECLIZINE HCL Inactive CLONIDINE HCL 0.2 MG ORAL TABLET 1 TAB BY MOUTH EVERY 8 HOURS CLONIDINE HCL 0.2 MG ORAL TABLET 340742 CLONIDINE HCL Inactive CYCLOBENZAPRINE HCL 10 MG ORAL TABLET 1 tablet by mouth three times daily as needed for muscle spasm/pain for 10 days CYCLOBENZAPRINE HCL 10 MG ORAL TABLET 519205 CYCLOBENZAPRINE HCL Inactive VITAMIN D3 21812 UNIT ORAL CAPSULE 2 CAPS PO WEEKLY VITAMIN D3 01352 UNIT ORAL CAPSULE CHOLECALCIFEROL Inactive FIORICET 50-300-40 MG ORAL CAPSULE take 1 tab po qday prn migraines. FIORICET 50-300-40 MG ORAL CAPSULE 115708 BUTALBITAL-APAP- CAFFEINE Inactive FLONASE 50 MCG/ACT NASAL SUSPENSION 1 spray each nostril twice daily for allergies and runny nose FLONASE 50 MCG/ACT NASAL SUSPENSION 7245151 FLUTICASONE PROPIONATE Inactive LORATADINE 10 MG ORAL TABLET 1 tablet by mouth daily for congestion and allergies. LORATADINE 10 MG ORAL TABLET 183792 LORATADINE Inactive NITROSTAT 0.4 MG SUBLINGUAL TABLET SUBLINGUAL PRN NITROSTAT 0.4 MG SUBLINGUAL TABLET SUBLINGUAL 539343 NITROGLYCERIN Inactive GUAIFENESIN ER 600 MG ORAL TABLET EXTENDED RELEASE 12 HOUR 1 tab po q am 2016 GUAIFENESIN ER 600 MG ORAL TABLET EXTENDED RELEASE 12 HOUR GUAIFENESIN Inactive CYCLOBENZAPRINE HCL 10 MG ORAL TABLET 1 po TID PRN muscle spasm/pain for 10 days CYCLOBENZAPRINE HCL 10 MG ORAL TABLET 036123 CYCLOBENZAPRINE HCL Inactive TOPIRAMATE 50 MG ORAL TABLET take 1 tab po BID for migraines. TOPIRAMATE 50 MG ORAL TABLET 141825 TOPIRAMATE Inactive PREDNISONE 20 MG ORAL TABLET two tabs by mouth today, then one tab by mouth days two and three PREDNISONE 20 MG ORAL TABLET 288628 PREDNISONE Inactive TOPROL XL 200 MG ORAL TABLET EXTENDED RELEASE 24 HOUR Take one by mouth daily TOPROL XL 200 MG ORAL TABLET EXTENDED RELEASE 24 HOUR METOPROLOL SUCCINATE Inactive CYCLOBENZAPRINE HCL 10 MG ORAL TABLET 1 tablet by mouth three times daily as needed for muscle spasm/pain CYCLOBENZAPRINE HCL 10 MG ORAL TABLET 955023 CYCLOBENZAPRINE HCL Inactive TOPIRAMATE 50 MG ORAL TABLET 1 po BID for migraines TOPIRAMATE 50 MG ORAL TABLET 070869 TOPIRAMATE Inactive TEMAZEPAM 15 MG ORAL CAPSULE 1 TAB PO Q HS TEMAZEPAM 15 MG ORAL CAPSULE 684397 TEMAZEPAM Inactive IMDUR 60 MG ORAL TABLET EXTENDED RELEASE 24 HOUR take 1 tab po qday for blood pressure IMDUR 60 MG ORAL TABLET EXTENDED RELEASE 24 HOUR ISOSORBIDE MONONITRATE Inactive [id number] 0.3 MG/24HR TRANSDERMAL PATCH WEEKLY apply 2 patches q week for HTN [id number] 0.3 MG/24HR TRANSDERMAL PATCH WEEKLY 296579 CLONIDINE HCL Inactive ZITHROMAX 250 MG ORAL TABLET 2 po today, then 1 po q days 2-5 ZITHROMAX 250 MG ORAL TABLET 051756 AZITHROMYCIN Inactive TERBINAFINE HCL 250 MG ORAL TABLET 1 tab po qday for foot infection TERBINAFINE HCL 250 MG ORAL TABLET 961517 TERBINAFINE HCL Inactive KEFLEX 500 MG ORAL CAPSULE 1 po TID x 10 days KEFLEX 500 MG ORAL CAPSULE 460778 CEPHALEXIN Inactive BACTRIM DS 800-160 MG ORAL TABLET 1 tab by mouth twice daily 2015 BACTRIM DS 800-160 MG ORAL TABLET 352542 TRIMETHOPRIM- SULFAMETHOXAZOLE Inactive PREDNISONE 20 MG ORAL TABLET take 3 tabs daily for 3 days, 2 tabs daily for 3 days, 1 tab daily for 3 days, 1/2 tab daily for 4 days PREDNISONE 20 MG ORAL TABLET 482416 PREDNISONE Inactive AZITHROMYCIN 250 MG ORAL TABLET 2 po qd x 1 day, then 1 po qd x 4 days 09/20 AZITHROMYCIN 250 MG ORAL TABLET 399540 AZITHROMYCIN Inactive SINGULAIR 10 MG ORAL TABLET 1 po qday for allergies. SINGULAIR 10 MG ORAL TABLET 616685 MONTELUKAST SODIUM Inactive Advance Directives Directive Description [...] AUTO - Chemistry sodium, serum 142 mmol/L 485-545 7271/07/17 carbon dioxide, venous blood 28.2 mmol/L 21.0-32.0 [...] % 11.0-15.0 platelet count 185 THOUSAND/UL 10*3/mm3 691-877 6971/04/14 mean platelet volume 10.9 fL 7.5-12.5 Lab Report: Comp. Metabolic Panel - Chemistry sodium, serum 141 mmol/L 445-101 1888/02/13 carbon dioxide, venous blood 23.9 mmol/L 21.0-32.0 [...] 6.9 % 4.3-6.0 sodium, serum 139 mmol/L 000-912 5651/01/04 potassium, serum 3.9 mmol/L 3.5-5.2 chloride, serum 103 mmol/L 98-107 carbon dioxide, venous blood 26.9 mmol/L 21.0-32.0 blood glucose 106 mg/dL 65-110 calcium, serum 9.0 mg/dL 8.5-10.1 urea nitrogen, blood 20 mg/dL 7-18 creatinine, serum 1.46 mg/dL 0.60-1.30 Lab Report: LIPID PANEL, TSH/899, T4, FREE/866 - Chemistry cholesterol, serum 220 mg/dL 038-398 2867/04/14 HDL cholesterol, serum 30 mg/dL > OR=40 [...] 1.80 ng/mL 0.00-4.00 Lab Report: VITAMIN D, 25-HYDROXY/32399 - Chemistry vitamin D 25-hydroxy, serum 25 ng/mL 30-100 Office Visit: Confusion, dizziness after fall - Basic LDL target level 130 mg/dL Office Visit: Confusion, dizziness after fall - Chemistry HDL cholesterol, serum, target level 40 mg/dL triglyceride, target level 150 mg/dL cholesterol, target level 200 mg/dL Encounters Code Encounter Date Provider Facility CPT-23131 Level 4 Est. Patient 09:50:01 ESTHETIC DERMATOLOGIST Robbie Busby MD [facility] CPT-35957 Level 4 Est. Patient 09:42:08 ESTHETIC DERMATOLOGIST Robbie Busby MD [facility] CPT-75943 Level 4 Est. Patient 13:07:39 ESTHETIC DERMATOLOGIST Robbie Busby MD [facility] CPT-82312 Level 4 Est. Patient 15:23:44 ESTHETIC DERMATOLOGIST Desomnd Diaz DO [facility] CPT-39203 Level 3 Est. Patient 15:40:49 CDT Robbie Busby MD [facility] CPT-14891 Level 4 Est. Patient 15:18:19 CDT Robbie Busby MD [facility] CPT-09324 Level 3 Est. Patient 09:00:37 CDT Rober Rodríguez [facility] CPT-26788 Level 3 Est. Patient 16:07:10 CDT Robbie Busby MD [facility] CPT-21529 Level 4 Est. Patient 11:56:16 CDT Erin Mai [facility] CPT-50236 Level 3 Est. Patient 17:48:02 CDT Robbie Busby MD [facility] CPT-82702 Level 4 Est. Patient 12:00:49 ESTHETIC DERMATOLOGIST Rober Rodríguez [facility] CPT-52869 Level 3 Est. Patient 09:16:37 CDT Robbie Busby MD [facility]-48233 Level 3 Est. Patient 19:38:43 CDT Robbie Busby MD [facility] CPT-09494 Level 3 Est. Patient 11:53:38 CDT Robbie Busby MD [facility] CPT-91348 Level 4 Est. Patient 12:52:22 CDT Rober Rodríguez [facility] CPT-34335 Level 4 Est. Patient 22:55:17 CDT Robbie Busby MD [facility]-54910 Level 3 Est. Patient 12:38:24 CDT Desmond Diaz DO [facility] CPT-51979 Level 4 Est. Patient 11:25:03 ESTHETIC DERMATOLOGIST Robbie Busby MD [facility] CPT-82028 Level 4 Est. Patient 14:50:10 CDT Robbie Busby MD [facility] CPT-89026 Level 4 Est. Patient 23:30:43 CDT Robbie Busby MD [facility] CPT-18033 Level 4 Est. Patient 10:30:43 CDT Robbie Busby MD [facility] CPT-70457 Level 3 Est. Patient 17:08:12 CDT Alex ALVAREZ [facility] CPT-19139 Level 4 Est. Patient 17:51:38 CDT Robbie Busby MD [facility] CPT-50882 Level 4 Est. Patient 14:00:21 CDT Robbie Busby MD [facility] CPT-85596 Level 4 Est. Patient 12:46:48 CDT Robbie Busby MD [facility] CPT-94661 Level 4 Est. Patient 13:34:33 CDT Robbie Busby MD [facility] CPT-19369 Level 4 Est. Patient 16:58:28 CDT Robbie Busby MD [facility] CPT-56198 Level 3 Est. Patient 19:36:53 CDT Alex ALVAREZ [facility] CPT-88561 Level 3 Est. Patient 12:58:15 CDT Robbie Busby MD [facility] Procedures Code Procedure Name Date Entry Date Standard Description CPT-J1071 Depo Testosterone 200mg 16:10:29 [facility] CPT-93805 Abx/Therapy Injection 16:10:29 [facility] CPT-J1071 Depo Testosterone 200mg 16:13:47 [facility] CPT-06661 Abx/Therapy Injection 16:13:46 [facility] CPT-J1071 Depo Testosterone 200mg 15:33:58 [facility] CPT-48377 Abx/Therapy Injection 15:33:58 [facility] CPT-J1071 Depo Testosterone 200mg 09:38:36 [facility] CPT-12535 Abx/Therapy Injection 09:38:36 [facility] CPT-J1071 Depo Testosterone 200mg 10:22:56 ESTHETIC DERMATOLOGIST CPT-84614 Abx/Therapy Injection 10:22:56 ESTHETIC DERMATOLOGIST CPT-J1071 Depo Testosterone 200mg 15:40:23 CDT CPT-37574 Abx/Therapy Injection 15:40:23 CDT CPT-J1071 Depo Testosterone 200mg 14:20:43 CDT CPT-94400 Abx/Therapy Injection 14:20:43 CDT CPT-J1071 Depo Testosterone 200mg 14:17:22 CDT CPT-91638 Abx/Therapy Injection 14:17:22 CDT CPT-J1071 Depo Testosterone 200mg 09:03:53 CDT CPT-87817 Abx/Therapy Injection 09:03:53 CDT CPT-G0439 [facility] Annual Wellness Exam 16:47:44 CDT CPT-J1071 Depo Testosterone 200mg 09:06:28 CDT CPT-76169 Abx/Therapy Injection 09:06:28 CDT CPT-J1071 Depo Testosterone 200mg 08:30:01 CDT CPT-85432 Abx/Therapy Injection 08:30:01 CDT CPT-J1071 Depo Testosterone 200mg 08:24:00 CDT CPT-11825 Abx/Therapy Injection 08:24:00 CDT CPT-01320 Venipuncture Draw Fee 14:39:06 CDT CPT-98542 Ribs unilateral 2V - XRAY USE ONLY 12:10:11 CDT CPT-91157 First Vx - Ix admin for Medicare patients 16:32:53 CDT CPT-08423 Boostrix Intramuscular Suspension 5-2.5-18.5 16:32:53 CDT CPT-98715 TB Skin Test 11:42:28 CDT CPT-86074 Tdap 7yrs or > 11:42:28 CDT CPT-J0696 Rocephin 1000 mg (Ceftriaxone) 17:43:43 ESTHETIC DERMATOLOGIST CPT-J1040 Depo Medrol 80 mg (Methyl Prednisolone Acetate) 17:43: 43 ESTHETIC DERMATOLOGIST CPT-J1100 Decadron 8mg (Dexamethasone) 17:43:42 ESTHETIC DERMATOLOGIST CPT-83101 Abx/Therapy Injection 17:43:42 ESTHETIC DERMATOLOGIST CPT-32309 Abx/Therapy Injection 17:43:42 ESTHETIC DERMATOLOGIST CPT-J1040 Depo Medrol 80 mg (Methyl Prednisolone Acetate) 09:43: 34 ESTHETIC DERMATOLOGIST CPT-J1100 Decadron 8mg (Dexamethasone) 09:43:34 ESTHETIC DERMATOLOGIST CPT-J0696 Rocephin 1gm Inj Solr 09:43:34 ESTHETIC DERMATOLOGIST CPT-40749 Wound Culture - LAB USE ONLY 14:00:21 CDT CPT-I/D I/D Abscess 09:16:37 CDT CPT-25608 Venipuncture Draw Fee 15:20:23 CDT CPT-01702 Microalbumin - LAB USE ONLY 16:02:19 CDT CPT-56630 CBC - LAB USE ONLY 16:02:19 CDT CPT-88830 Venipuncture Draw Fee 16:02:19 CDT CPT-G0438 Initial Annual Wellness Exam 08:10:28 CDT CPT-34673 Venipuncture Draw Fee 13:07:17 CDT CPT-G0008 Administration of Influenza Virus Vaccine 16:09:59 CDT CPT-70430 Fluzone Quadrivalent Intramuscular Suspension 0.5 ML 16: 09:59 CDT CPT-48447 Spec Collection and Handling Fee 15:05:50 CDT
--- OUTSIDE RECORDS SUMMARY | 2018-04-18 11:16 | XMS REPORT | Clinical Summary ---
Author Author Admin, [facility] Organization [facility] Address Unknown Phone Unavailable Allergies, Adverse Reactions, [...] 1 tab by mouth twice daily TRIMETHOPRIM-SULFAMETHOXAZOLE 82093254750 No Longer Active Robbie Busby MD Active SPIRONOLACTONE 25 MG TAB 4 tablets by mouth daily SPIRONOLACTONE 33205340749 Active Robbie Busby MD Active HYDRALAZINE HCL 50 MG ORAL TABS TWO BY MOUTH THREE TIMES DAILY HYDRALAZINE HCL 47517966991 No Longer Active Jillina Frazell DATA SUPPORT SPECIALIST Active HYDROCODONE-ACETAMINOPHEN 5-325 MG TABS 1 tab by mouth BID prn back pain 2013 HYDROCODONE-ACETAMINOPHEN 12964552332 No Longer Active Jillina Frazell DATA SUPPORT SPECIALIST Active HYDROCHLOROTHIAZIDE TABS Take one by mouth daily HYDROCHLOROTHIAZIDE TABS 07385599837 No Longer Active Jillina Frazell DATA SUPPORT SPECIALIST Active LAMISIL 125 MG ORAL PACK 1 TAB PO DAILY TERBINAFINE HCL 83021015932 No Longer Active Jillina Frazell DATA SUPPORT SPECIALIST Active TRILEPTAL 150 MG ORAL TABS 1 TAB PO Q HS OXCARBAZEPINE 44781779469 No Longer Active Jillina Frazell DATA SUPPORT SPECIALIST Active BETADINE 10 % EXT SOLN 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 POVIDONE-IODINE 49322364385 No Longer Active Jillina Frazell DATA SUPPORT SPECIALIST Active NYSTATIN 225967 UNIT/ML M/T SUSP 5mL po QID x 10 days NYSTATIN 58147472218 No Longer Active Erin Garsia APRN Active PREDNISONE 20 MG TAB 1 tablet twice daily for 2 days, then 1 tablet once daily for 2 days PREDNISONE 83300554921 No Longer Active Robbie Busby MD Active CEFDINIR 300 MG ORAL CAPS Take 1 cap po bid x 10 days CEFDINIR 97410902507 No Longer Active Robbie Busby MD Active AMLODIPINE BESYLATE 10 MG TABS 1 tablet by mouth daily AMLODIPINE BESYLATE 29007095395 Active Robbie Busby MD Active CARVEDILOL 25 MG TABS 1 & 1/2 TAB po BID CARVEDILOL 40231679659 Active Erin Garsia APRN Active VITAMIN D3 34433 UNIT CAPS 2 CAPS PO WEEKLY CHOLECALCIFEROL 92055711251 Active Erin Garsia APRN Active NEXIUM 40 MG CPDR 1 cap by mouth daily ESOMEPRAZOLE MAGNESIUM 07835059057 Active Gali Negro Active PROTONIX 40 MG SOLR 1 po qday for acid reflux PANTOPRAZOLE SODIUM 60481517174 No Longer Active Gali Negro Active KEFLEX 500 MG CAP 1 po TID x 10 days CEPHALEXIN 61387823704 No Longer Active Robbie Busby MD Active FIORICET 50-300-40 MG ORAL CAPS take 1 tab po qday prn migraines. [id number] 69518964436 Active Robbie Busby MD Active TOPIRAMATE 50 MG ORAL TABS take 1 tab po BID for migraines. TOPIRAMATE 50839066098 Active Robbie Busby MD Active MECLIZINE HCL 25 MG TAB one 4 times a day as needed for dizziness MECLIZINE HCL 34118315249 Active Robbie Busby MD Active TEMAZEPAM 15 MG ORAL CAPS 1 TAB PO Q HS TEMAZEPAM 99074898556 Active Robbie Busby MD Active ALPRAZOLAM 2 MG ORAL TABS 1 TAB PO BID ALPRAZOLAM 27657942461 Active Robbie Busby MD Active FENOFIBRATE 145 MG TABS Take one by mouth daily FENOFIBRATE 04358961665 No Longer Active Robbie Busby MD Active SPIRONOLACTONE 50 MG TABS 1 tablet by mouth twice a day SPIRONOLACTONE 89857985742 No Longer Active Robbie Busby MD Active HYDRALAZINE HCL 25 MG TABS 1 tablet by mouth tid for hypertension HYDRALAZINE HCL 73076953652 No Longer Active Robbie Busby MD Active VIIBRYD 40 MG TABS take 1 tab po qday for depression. VILAZODONE HCL 26308219397 No Longer Active Robbie Busby MD Active TERBINAFINE HCL 250 MG TABS 1 tab po qday for foot infection 2014 TERBINAFINE HCL 14916734904 No Longer Active Robbie Busby MD Active GABAPENTIN 300 MG CAPS 1 po q hs for nerve pain GABAPENTIN 94206742187 Active Robbie Busby MD Active FLONASE 50 MCG/ACT SUSP 1 spray each nostril twice daily for allergies and runny nose FLUTICASONE PROPIONATE 48720545779 Active Robbie Busby MD Active CHERATUSSIN AC 100-10 MG/5ML ORAL SOLN 7.5 mL PO q 4-6 hrs PRN cough GUAIFENESIN-CODEINE 44269466812 No Longer Active Robbie Busby MD Active AZITHROMYCIN 250 MG ORAL TABS 2 tablets PO today---then, 1 tablet PO daily x 4 more days (and 1 optional refill) AZITHROMYCIN 03508560948 No Longer Active Robbie Busby MD Active CLONIDINE HCL 0.2 MG ORAL TABS 1 TAB BY MOUTH EVERY 8 HOURS CLONIDINE HCL 93402135059 Active Erin Garsia APRN Active NORVASC 10 MG TAB 1 tablet by mouth daily AMLODIPINE BESYLATE 26518714741 No Longer Active Alex ALVAREZ Active IMDUR 60 MG TAB CR take 1 tab po qday for blood pressure ISOSORBIDE MONONITRATE Active Robbie Busby MD Active ISOSORBIDE DINITRATE 30 MG TABS Take one by mouth daily ISOSORBIDE DINITRATE 28595472611 No Longer Active Robbie Busby MD Active VIIBRYD 40 MG TABS 1 TA B PO DAILY VILAZODONE HCL 25830128949 Active Robbie Busby MD Active LORATADINE 10 MG TABS 1 tablet by mouth daily for congestion and allergies. LORATADINE 43105482805 Active Robbie Busby MD Active ZITHROMAX 250 MG TAB 2 po today, then 1 po q days 2-5 AZITHROMYCIN 61688313124 No Longer Active Robbie Busby MD Active GVQWAQRH-[id number]-2 0.3 MG/24HR PTWK apply 2 patches q week for HTN CLONIDINE HCL 33996908014 Active Robbie Busby MD Active NITROSTAT 0.4 MG SUBL PRN NITROGLYCERIN 08550100082 Active Robbie Busby MD Active DOXAZOSIN MESYLATE 4 MG TABS Take one by mouth daily DOXAZOSIN MESYLATE 43180732136 Active Robbie Busby MD Active TOPROL XL 200 MG [id number] Take one by mouth daily METOPROLOL SUCCINATE 21972109403 Active Robbie Busby MD Active VENLAFAXINE HCL ER 150 MG [id number] Take one by mouth daily VENLAFAXINE HCL 14912670708 Active Robbie Busby MD Active LIPITOR 40 MG TABS Take one by mouth daily ATORVASTATIN CALCIUM 65244081085 Active Robbie Busby MD Active ISOSORBIDE DINITRATE 30 MG TABS Take one by mouth daily ISOSORBIDE DINITRATE 30 MG TABS 962471 ISOSORBIDE DINITRATE Inactive NORVASC 10 MG TAB 1 tablet by mouth daily NORVASC 10 MG TAB 585157 AMLODIPINE BESYLATE Inactive AZITHROMYCIN 250 MG ORAL TABS 2 tablets PO today---then, 1 tablet PO daily x 4 more days (and 1 optional refill) AZITHROMYCIN 250 MG ORAL TABS 9016599 AZITHROMYCIN Inactive CHERATUSSIN AC 100-10 MG/5ML ORAL SOLN 7.5 mL PO q 4-6 hrs PRN cough CHERATUSSIN AC 100-10 MG/5ML ORAL SOLN 204447 GUAIFENESIN- CODEINE Inactive VIIBRYD 40 MG TABS take 1 tab po qday for depression. VIIBRYD 40 MG TABS VILAZODONE HCL Inactive HYDRALAZINE HCL 25 MG TABS 1 tablet by mouth tid for hypertension HYDRALAZINE HCL 25 MG TABS 682323 HYDRALAZINE HCL Inactive SPIRONOLACTONE 50 MG TABS 1 tablet by mouth twice a day SPIRONOLACTONE 50 MG TABS 669260 SPIRONOLACTONE Inactive FENOFIBRATE 145 MG TABS Take one by mouth daily FENOFIBRATE 145 MG TABS 512967 FENOFIBRATE Inactive PROTONIX 40 MG SOLR 1 po qday for acid reflux PROTONIX 40 MG SOLR 613549 PANTOPRAZOLE SODIUM Inactive CEFDINIR 300 MG ORAL CAPS Take 1 cap po bid x 10 days CEFDINIR 300 MG ORAL CAPS 887718 CEFDINIR Inactive PREDNISONE 20 MG TAB 1 tablet twice daily for 2 days, then 1 tablet once daily for 2 days PREDNISONE 20 MG TAB 231641 PREDNISONE Inactive NYSTATIN 922022 UNIT/ML M/T SUSP 5mL po QID x 10 days NYSTATIN 702023 UNIT/ML M/T SUSP 391878 NYSTATIN Inactive BETADINE 10 % EXT SOLN 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 BETADINE 10 % EXT SOLN 3672664 POVIDONE-IODINE Inactive TRILEPTAL 150 MG ORAL TABS 1 TAB PO Q HS TRILEPTAL 150 MG ORAL TABS 075721 OXCARBAZEPINE Inactive LAMISIL 125 MG ORAL PACK 1 TAB PO DAILY LAMISIL 125 MG ORAL PACK TERBINAFINE HCL Inactive HYDROCHLOROTHIAZIDE TABS Take one by mouth daily HYDROCHLOROTHIAZIDE TABS HYDROCHLOROTHIAZIDE TABS Inactive HYDROCODONE-ACETAMINOPHEN 5-325 MG TABS 1 tab by mouth BID prn back pain 2013 HYDROCODONE-ACETAMINOPHEN 5-325 MG TABS 565271 HYDROCODONE -ACETAMINOPHEN Inactive HYDRALAZINE HCL 50 MG ORAL TABS TWO BY MOUTH THREE TIMES DAILY HYDRALAZINE HCL 50 MG ORAL TABS 483611 HYDRALAZINE HCL Inactive ZITHROMAX 250 MG TAB 2 po today, then 1 po q days 2-5 ZITHROMAX 250 MG TAB 6858934 AZITHROMYCIN Inactive TERBINAFINE HCL 250 MG TABS 1 tab po qday for foot infection 2014 TERBINAFINE HCL 250 MG TABS 798463 TERBINAFINE HCL Inactive KEFLEX 500 MG CAP 1 po TID x 10 days KEFLEX 500 MG CAP 134568 CEPHALEXIN Inactive BACTRIM DS 800-160 MG TAB 1 tab by mouth twice daily BACTRIM DS 800-160 MG TAB 775100 TRIMETHOPRIM-SULFAMETHOXAZOLE Inactive Advance Directives Directive Description Start [...] Acid - Chemistry sodium, serum 139 mmol/L 469-850 3582/04/22 carbon dioxide, venous blood 29.4 mmol/L 21.0-32.0 [...] to Follow Negative Lab Report: VITAMIN D, 25-HYDROXY/82306 - Chemistry vitamin D 25-hydroxy, serum 23 ng/mL 30-100 Encounters Code Encounter Date Provider Facility CPT-09916 Level 3 Est. Patient 09:16:37 CDT Robbie Busby MD [facility]-55117 Level 3 Est. Patient 19:38:43 CDT Robbie Busby MD [facility]-78963 Level 3 Est. Patient 11:53:38 CDT Robbie Busby MD [facility]-82955 Level 4 Est. Patient 12:52:22 CD[facility] Patient 22:55:17 CDT Robbie Busby MD [facility]-27198 Level 3 Est. Patient 12:38:24 CDT Desmond Diaz DO [facility] CPT-79403 Level 4 Est. 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 Patient 14:50:10 CDT Robbie Busby MD [facility] CPT-02562 Level 4 Est. Patient 23:30:43 CDT Robbie Busby MD [facility] CPT-53862 Level 4 Est. Patient 10:30:43 CDT Robbie Busby MD [facility] CPT-39617 Level 3 Est. Patient 17:08:12 CDT Alex ALVAREZ [facility]-86811 Level 4 Est. Patient 17:51:38 CDT Robbie Busby MD [facility] CPT-11821 Level 4 Est. Patient 14:00:21 CDT Robbie Busby MD [facility] CPT-93837 Level 4 Est. Patient 12:46:48 CDT Robbie Busby MD [facility] CPT-32843 Level 4 Est. Patient 13:34:33 CDT Robbie Busby MD [facility] CPT-22515 Level 4 Est. Patient 16:58:28 CDT Robbie Busby MD [facility] CPT-06286 Level 3 Est. Patient 19:36:53 CDT Alex ALVAREZ [facility] CPT-08444 Level 3 Est. Patient 12:58:15 CDT Robbie Busby MD [facility] Procedures Code Procedure Name Date Entry Date Standard Description CPT-29750 Wound Culture - LAB USE ONLY 14:00:21 CDT CPT-I/D I/D Abscess 09:16:37 CDT CPT-63952 Venipuncture Draw Fee 15:20:23 CDT CPT-83805 Microalbumin - LAB USE ONLY 16:02:19 CDT CPT-66941 CBC - LAB USE ONLY 16:02:19 CDT CPT-69184 Venipuncture Draw Fee 16:02:19 CDT CPT-G0438 Initial Annual Wellness Exam 08:10:28 CDT CPT-18871 Venipuncture Draw Fee 13:07:17 CDT CPT-G0008 Administration of Influenza Virus Vaccine 16:09:59 CDT CPT-21957 Fluzone Quadrivalent Intramuscular Suspension 0.5 ML 16: 09:59 CDT CPT-58773 Spec Collection and Handling Fee 15:05:50 CDT
--- OUTSIDE RECORDS SUMMARY | 2018-04-18 11:17 | XMS REPORT | Clinical Summary ---
Author Author Admin, [facility] Organization [facility] Address Unknown Phone Unavailable Allergies, Adverse Reactions, [...] Name NDC Status Provider Patient Instruction NYSTATIN 991276 UNIT/ML M/T SUSP 5mL po QID x 10 days NYSTATIN 60736800319 No Longer Active Erin Garsia APRN Active PREDNISONE 20 MG TAB 1 tablet twice daily for 2 days, then 1 tablet once daily for 2 days PREDNISONE 35492737397 No Longer Active Robbie Busby MD Active CEFDINIR 300 MG ORAL CAPS Take 1 cap po bid x 10 days CEFDINIR 37343793795 No Longer Active Robbie Busby MD Active AMLODIPINE BESYLATE 10 MG TABS 1 tablet by mouth daily AMLODIPINE BESYLATE 09132696692 Active Robbie Busby MD Active CARVEDILOL 25 MG TABS 1 & 1/2 TAB po BID CARVEDILOL 86521814565 Active Robbie Busby MD Active VITAMIN D3 15331 UNIT CAPS 2 CAPS PO WEEKLY CHOLECALCIFEROL 72697836284 Active Erin Garsia 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 [id number] 78173169620 Active Robbie Busby MD Active TOPIRAMATE 50 MG ORAL TABS take 1 tab po BID for migraines. TOPIRAMATE 17793749600 Active Robbie Busby MD Active HYDRALAZINE HCL 50 MG ORAL TABS TWO BY MOUTH THREE TIMES DAILY HYDRALAZINE HCL 61871076579 Active Robbie Busby MD Active MECLIZINE HCL 25 MG TAB one 4 times a day as needed for dizziness MECLIZINE HCL 35888412509 Active Robbie Busby MD Active TRILEPTAL 150 MG ORAL TABS 1 TAB PO Q HS OXCARBAZEPINE 57343659832 Active Robbie Busby MD Active TEMAZEPAM 15 MG ORAL CAPS 1 TAB PO Q HS TEMAZEPAM 24027825769 Active Robbie Busby MD Active ALPRAZOLAM 2 MG ORAL TABS 1 TAB PO BID ALPRAZOLAM 63310209278 Active Robbie Busby MD Active FENOFIBRATE 145 MG TABS Take one by mouth daily FENOFIBRATE 74652396275 No Longer Active Robbie Busby MD Active LAMISIL 125 MG ORAL PACK 1 TAB PO DAILY TERBINAFINE HCL 75407849672 Active Robbie Busby MD Active SPIRONOLACTONE 50 MG TABS 1 tablet by mouth twice a day SPIRONOLACTONE 78295658495 No Longer Active Robbie Busby MD Active HYDRALAZINE HCL 25 MG TABS 1 tablet by mouth tid for hypertension HYDRALAZINE HCL 51445816405 No Longer Active Robbie Busby MD Active VIIBRYD 40 MG TABS take 1 tab po qday for depression. VILAZODONE HCL 35922570402 No Longer Active Robbie Busby MD Active TERBINAFINE HCL 250 MG TABS 1 tab po qday for foot infection 2014 TERBINAFINE HCL 39557162190 No Longer Active Robbie Busby MD Active GABAPENTIN 300 MG CAPS 1 po q hs for nerve pain GABAPENTIN 96534628685 Active Robbie Busby MD Active FLONASE 50 MCG/ACT SUSP 1 spray each nostril twice daily for allergies and runny nose FLUTICASONE PROPIONATE 56913815219 Active Robbie Busby MD Active CHERATUSSIN AC 100-10 MG/5ML ORAL SOLN 7.5 mL PO q 4-6 hrs PRN cough GUAIFENESIN-CODEINE 73749681190 No Longer Active Robbie Busby MD Active AZITHROMYCIN 250 MG ORAL TABS 2 tablets PO today---then, 1 tablet PO daily x 4 more days (and 1 optional refill) AZITHROMYCIN 17059023637 No Longer Active Robbie Busby MD Active CLONIDINE HCL 0.2 MG ORAL TABS 1 TAB BY MOUTH EVERY 8 HOURS CLONIDINE HCL 71591475898 Active Robbie Busby MD Active HYDROCHLOROTHIAZIDE TABS Take one by mouth daily HYDROCHLOROTHIAZIDE TABS 09295112007 Active Alex ALVAREZ Active NORVASC 10 MG TAB 1 tablet by mouth daily AMLODIPINE BESYLATE 23421794350 No Longer Active Alex ALVAREZ Active IMDUR 60 MG TAB CR take 1 tab po qday for blood pressure ISOSORBIDE MONONITRATE Active Robbie Busby MD Active ISOSORBIDE DINITRATE 30 MG TABS Take one by mouth daily ISOSORBIDE DINITRATE 79579971200 No Longer Active Robbie Busby MD Active VIIBRYD 40 MG TABS 1 TA B PO DAILY VILAZODONE HCL 41351726542 Active Erin Garsia APRN Active LORATADINE 10 MG TABS 1 tablet by mouth daily for congestion and allergies. LORATADINE 37441058091 Active Robbie Busby MD Active ZITHROMAX 250 MG TAB 2 po today, then 1 po q days 2-5 AZITHROMYCIN 09681639737 No Longer Active Robbie Busby MD Active HYDROCODONE-ACETAMINOPHEN 5-325 MG TABS 1 tab by mouth BID prn back pain 2013 HYDROCODONE-ACETAMINOPHEN 54737555952 Active Robbie Busby MD Active [id number] 0.3 MG/24HR PTWK apply 2 patches q week for HTN CLONIDINE HCL 14177070355 Active Robbie Busby MD Active NITROSTAT 0.4 MG SUBL PRN NITROGLYCERIN 22916202537 Active Robbie Busby MD Active DOXAZOSIN MESYLATE 4 MG TABS Take one by mouth daily DOXAZOSIN MESYLATE 74995049169 Active Robbie Busby MD Active TOPROL XL 200 MG [id number] Take one by mouth daily METOPROLOL SUCCINATE 89920967451 Active oRbbie Busby MD Active VENLAFAXINE HCL ER 150 MG [id number] Take one by mouth daily VENLAFAXINE HCL 60365189579 Active Robbie Busby MD Active LIPITOR 40 MG TABS Take one by mouth daily ATORVASTATIN CALCIUM 65191327482 Active Robbie Busby MD Active ISOSORBIDE DINITRATE 30 MG TABS Take one by mouth daily ISOSORBIDE DINITRATE 30 MG TABS 902582 ISOSORBIDE DINITRATE Inactive NORVASC 10 MG TAB 1 tablet by mouth daily NORVASC 10 MG TAB 811867 AMLODIPINE BESYLATE Inactive AZITHROMYCIN 250 MG ORAL TABS 2 tablets PO today---then, 1 tablet PO daily x 4 more days (and 1 optional refill) AZITHROMYCIN 250 MG ORAL TABS 1495448 AZITHROMYCIN Inactive CHERATUSSIN AC 100-10 MG/5ML ORAL SOLN 7.5 mL PO q 4-6 hrs PRN cough CHERATUSSIN AC 100-10 MG/5ML ORAL SOLN 239128 GUAIFENESIN- CODEINE Inactive VIIBRYD 40 MG TABS take 1 tab po qday for depression. VIIBRYD 40 MG TABS VILAZODONE HCL Inactive HYDRALAZINE HCL 25 MG TABS 1 tablet by mouth tid for hypertension HYDRALAZINE HCL 25 MG TABS 849857 HYDRALAZINE HCL Inactive SPIRONOLACTONE 50 MG TABS 1 tablet by mouth twice a day SPIRONOLACTONE 50 MG TABS 539017 SPIRONOLACTONE Inactive FENOFIBRATE 145 MG TABS Take one by mouth daily FENOFIBRATE 145 MG TABS 027070 FENOFIBRATE Inactive PROTONIX 40 MG SOLR 1 po qday for acid reflux PROTONIX 40 MG SOLR 184074 PANTOPRAZOLE SODIUM Inactive CEFDINIR 300 MG ORAL CAPS Take 1 cap po bid x 10 days CEFDINIR 300 MG ORAL CAPS 588011 CEFDINIR Inactive PREDNISONE 20 MG TAB 1 tablet twice daily for 2 days, then 1 tablet once daily for 2 days PREDNISONE 20 MG TAB 576949 PREDNISONE Inactive NYSTATIN 661719 UNIT/ML M/T SUSP 5mL po QID x 10 days NYSTATIN 737374 UNIT/ML M/T SUSP 639500 NYSTATIN Inactive ZITHROMAX 250 MG TAB 2 po today, then 1 po q days 2-5 ZITHROMAX 250 MG TAB 1471253 AZITHROMYCIN Inactive TERBINAFINE HCL 250 MG TABS 1 tab po qday for foot infection 2014 TERBINAFINE HCL 250 MG TABS 001360 TERBINAFINE HCL Inactive KEFLEX 500 MG CAP 1 po TID x 10 days KEFLEX 500 MG CAP 849183 CEPHALEXIN Inactive Advance Directives Directive Description Start [...] Acid - Chemistry sodium, serum 139 mmol/L 501-406 4831/04/22 carbon dioxide, venous blood 29.4 mmol/L 21.0-32.0 [...] PANEL - Chemistry cholesterol, serum 211 mg/dL 657-105 1423/08/31 triglyceride, serum, fasting 429 mg/dL 30-200 HDL [...] to Follow Negative Lab Report: VITAMIN D, 25-HYDROXY/87768 - Chemistry vitamin D 25-hydroxy, serum 23 ng/mL 30-100 Encounters Code Encounter Date Provider Facility CPT-24316 Level 4 Est. Patient 22:55:17 CDT Robbie Busby MD [facility] CPT-31163 Level 3 Est. Patient 12:38:24 CDT Desmond Diaz DO [facility] CPT-17115 Level 4 Est. 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 Patient 14:50:10 CDT Robbie Busby MD [facility]-30411 Level 4 Est. Patient 23:30:43 CDT Robbie Busby MD [facility] CPT-22452 Level 4 Est. Patient 10:30:43 CDT Robbie Busby MD [facility] CPT-54381 Level 3 Est. Patient 17:08:12 CDT Alex Shaw [facility] CPT-43454 Level 4 Est. Patient 17:51:38 CDT Robbie Busby MD [facility] CPT-00969 Level 4 Est. Patient 14:00:21 CDT Robbie Busby MD [facility] CPT-68998 Level 4 Est. Patient 12:46:48 CDT Robbie Busby MD [facility] CPT-97986 Level 4 Est. Patient 13:34:33 CDT Robbie Busby MD [facility] CPT-71631 Level 4 Est. Patient 16:58:28 CDT Robbie Busby MD [facility] CPT-37724 Level 3 Est. Patient 19:36:53 CDT Alex W Cloven PA [facility] CPT-33614 Level 3 Est. Patient 12:58:15 CDT Robbie Busby MD [facility] Procedures Code Procedure Name Date Entry Date Standard Description CPT-G0438 Initial Annual Wellness Exam 08:10:28 CDT CPT-28105 Venipuncture Draw Fee 13:07:17 CDT CPT-G0008 Administration of Influenza Virus Vaccine 16:09:59 CDT CPT-02861 Fluzone Quadrivalent Intramuscular Suspension 0.5 ML 16: 09:59 CDT CPT-67907 Spec Collection and Handling Fee 15:05:50 CDT
--- OUTSIDE RECORDS SUMMARY | 2018-04-18 11:17 | XMS REPORT | Clinical Summary ---
Author Author Admin, Nicolas Organization [employer] Address Unknown Phone Unavailable Allergies, Adverse Reactions, [...] NDC Status Provider Patient Instruction VITAMIN D3 01369 UNIT CAPS 2 CAPS PO WEEKLY CHOLECALCIFEROL 27972801928 Active Vanessa August Active CEFDINIR 300 MG ORAL CAPS Take 1 cap po bid x 10 days CEFDINIR 20424383931 Active Jackie Junior MA Active PREDNISONE 20 MG TAB 1 tablet twice daily for 2 days, then 1 tablet once daily for 2 days PREDNISONE 31451862407 Active Desmond Diaz DO Active NEXIUM 40 MG CPDR 1 cap by mouth daily ESOMEPRAZOLE MAGNESIUM 75848219580 Active Gali Negro Active PROTONIX 40 MG SOLR 1 po qday for acid reflux PANTOPRAZOLE SODIUM 45072496783 No Longer Active Galileonila Negro Active BETADINE 10 % EXT SOLN 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 POVIDONE-IODINE 53292268522 Active Robbie Busby MD Active KEFLEX 500 MG CAP 1 po TID x 10 days CEPHALEXIN 94020303802 No Longer Active Robbie Busby MD Active FIORICET 50-300-40 MG ORAL CAPS take 1 tab po qday prn migraines. [id number] 71828873017 Active Robbie Busby MD Active TOPIRAMATE 50 MG ORAL TABS take 1 tab po BID for migraines. TOPIRAMATE 99026934569 Active Robbie Busby MD Active HYDRALAZINE HCL 50 MG ORAL TABS TWO BY MOUTH THREE TIMES DAILY HYDRALAZINE HCL 48676006269 Active Robbie Busby MD Active MECLIZINE HCL 25 MG TAB one 4 times a day as needed for dizziness MECLIZINE HCL 04422853664 Active Robbie Busby MD Active TRILEPTAL 150 MG ORAL TABS 1 TAB PO Q HS OXCARBAZEPINE 28165507930 Active Robbie Busby MD Active TEMAZEPAM 15 MG ORAL CAPS 1 TAB PO Q HS TEMAZEPAM 32646440512 Active Robbie Busby MD Active ALPRAZOLAM 2 MG ORAL TABS 1 TAB PO BID ALPRAZOLAM 02724213881 Active Robbie Busby MD Active FENOFIBRATE 145 MG TABS Take one by mouth daily FENOFIBRATE 63772977590 No Longer Active Robbie Busby MD Active LAMISIL 125 MG ORAL PACK 1 TAB PO DAILY TERBINAFINE HCL 42964521534 Active Robbie Busby MD Active SPIRONOLACTONE 50 MG TABS 1 tablet by mouth twice a day SPIRONOLACTONE 05873441372 No Longer Active Robbie Busby MD Active HYDRALAZINE HCL 25 MG TABS 1 tablet by mouth tid for hypertension HYDRALAZINE HCL 54957155840 No Longer Active Robbie Busby MD Active VIIBRYD 40 MG TABS take 1 tab po qday for depression. VILAZODONE HCL 80958010003 No Longer Active Robbie Busyb MD Active TERBINAFINE HCL 250 MG TABS 1 tab po qday for foot infection 2014 TERBINAFINE HCL 59104584601 No Longer Active Robbie Busby MD Active GABAPENTIN 300 MG CAPS 1 po q hs for nerve pain GABAPENTIN 31172829055 Active Robbie Busby MD Active FLONASE 50 MCG/ACT SUSP 1 spray each nostril twice daily for allergies and runny nose FLUTICASONE PROPIONATE 05156030569 Active Robbie Busby MD Active CHERATUSSIN AC 100-10 MG/5ML ORAL SOLN 7.5 mL PO q 4-6 hrs PRN cough GUAIFENESIN-CODEINE 82343509337 No Longer Active Robbie Busby MD Active AZITHROMYCIN 250 MG ORAL TABS 2 tablets PO today---then, 1 tablet PO daily x 4 more days (and 1 optional refill) AZITHROMYCIN 78924572992 No Longer Active Robbie Busby MD Active CLONIDINE HCL 0.2 MG ORAL TABS 1 TAB BY MOUTH EVERY 8 HOURS CLONIDINE HCL 48580431919 Active Robbie Busby MD Active HYDROCHLOROTHIAZIDE TABS Take one by mouth daily HYDROCHLOROTHIAZIDE TABS 31308498099 Active Alex ALVAREZ Active NORVASC 10 MG TAB 1 tablet by mouth daily AMLODIPINE BESYLATE 23254384980 No Longer Active Alex ALVAREZ Active IMDUR 60 MG TAB CR take 1 tab po qday for blood pressure ISOSORBIDE MONONITRATE Active Robbie Busby MD Active ISOSORBIDE DINITRATE 30 MG TABS Take one by mouth daily ISOSORBIDE DINITRATE 27539006230 No Longer Active Robbie Busby MD Active VIIBRYD 40 MG TABS 1 TA B PO DAILY VILAZODONE HCL 43175320897 Active Erin Garsia APRN Active LORATADINE 10 MG TABS 1 tablet by mouth daily for congestion and allergies. LORATADINE 40471604082 Active Robbie Busby MD Active ZITHROMAX 250 MG TAB 2 po today, then 1 po q days 2-5 AZITHROMYCIN 05437293603 No Longer Active Robbie Busby MD Active HYDROCODONE-ACETAMINOPHEN 5-325 MG TABS 1 tab by mouth BID prn back pain 2013 HYDROCODONE-ACETAMINOPHEN 39212223858 Active Robbie Busby MD Active [id number]-[id number]-5 0.3 MG/24HR PTWK apply 2 patches q week for HTN CLONIDINE HCL 02536702250 Active Robbie Busby MD Active NITROSTAT 0.4 MG SUBL PRN NITROGLYCERIN 70952552268 Active Robbie Busby MD Active DOXAZOSIN MESYLATE 4 MG TABS Take one by mouth daily DOXAZOSIN MESYLATE 46446036801 Active Robbie Busby MD Active TOPROL XL 200 MG [id number] Take one by mouth daily METOPROLOL SUCCINATE 73280800712 Active Robbie Busby MD Active VENLAFAXINE HCL ER 150 MG [id number] Take one by mouth daily VENLAFAXINE HCL 51785661503 Active Robbie Busby MD Active LIPITOR 40 MG TABS Take one by mouth daily ATORVASTATIN CALCIUM 55149675685 Active Robbie Busby MD Active ISOSORBIDE DINITRATE 30 MG TABS Take one by mouth daily ISOSORBIDE DINITRATE 30 MG TABS 736698 ISOSORBIDE DINITRATE Inactive NORVASC 10 MG TAB 1 tablet by mouth daily NORVASC 10 MG TAB 466305 AMLODIPINE BESYLATE Inactive AZITHROMYCIN 250 MG ORAL TABS 2 tablets PO today---then, 1 tablet PO daily x 4 more days (and 1 optional refill) AZITHROMYCIN 250 MG ORAL TABS 5166824 AZITHROMYCIN Inactive CHERATUSSIN AC 100-10 MG/5ML ORAL SOLN 7.5 mL PO q 4-6 hrs PRN cough CHERATUSSIN AC 100-10 MG/5ML ORAL SOLN 030767 GUAIFENESIN- CODEINE Inactive VIIBRYD 40 MG TABS take 1 tab po qday for depression. VIIBRYD 40 MG TABS VILAZODONE HCL Inactive HYDRALAZINE HCL 25 MG TABS 1 tablet by mouth tid for hypertension HYDRALAZINE HCL 25 MG TABS 429176 HYDRALAZINE HCL Inactive SPIRONOLACTONE 50 MG TABS 1 tablet by mouth twice a day SPIRONOLACTONE 50 MG TABS 579660 SPIRONOLACTONE Inactive FENOFIBRATE 145 MG TABS Take one by mouth daily FENOFIBRATE 145 MG TABS 093510 FENOFIBRATE Inactive PROTONIX 40 MG SOLR 1 po qday for acid reflux PROTONIX 40 MG SOLR 031699 PANTOPRAZOLE SODIUM Inactive ZITHROMAX 250 MG TAB 2 po today, then 1 po q days 2-5 ZITHROMAX 250 MG TAB 1073213 AZITHROMYCIN Inactive TERBINAFINE HCL 250 MG TABS 1 tab po qday for foot infection 2014 TERBINAFINE HCL 250 MG TABS 247237 TERBINAFINE HCL Inactive KEFLEX 500 MG CAP 1 po TID x 10 days KEFLEX 500 MG CAP 123615 CEPHALEXIN Inactive Vital Signs Date Name Value [...] Comp. Metabolic Panel, Uric Acid - Chemistry blood glucose 104 mg/dL 65-110 urea nitrogen, blood 29 mg/dL 7-18 creatinine, serum 1.65 mg/dL 0.55-1.30 alanine aminotransferase (SGPT), serum 40 U/L - aspartate aminotransferase (SGOT), serum 21 U/L 15-37 calcium, serum 9.4 mg/dL 8.5-10.1 bilirubin, serum, total 0.60 mg/dL 0.00-1.00 uric acid, serum 10.7 mg/dL 2.6-7.2 sodium, serum 139 mmol/L 767-577 1403/04/22 carbon dioxide, venous blood 29.4 mmol/L 21.0-32.0 potassium, serum 4.1 mmol/L 3.5-5.2 chloride, serum 104 mmol/L 98-107 Lab Report: Creatinine - Chemistry creatinine, serum 1.40 mg/dL 0.60-1.30 Lab Report: HEPATITIS B SAB/Immune Status, RUBELLA IGG AB(Immune Status) - Serology rubella antibody, serum, IgG 2.06 Lab Report: Lipid Panel, HEPATIC PANEL - Chemistry aspartate aminotransferase (SGOT), serum 19 U/L 15-37 alanine aminotransferase (SGPT), serum 32 U/L 12-78 bilirubin, serum, total 0.70 mg/dL 0.00-1.00 LDL cholesterol, serum 100 mg/dL 0-130 HDL cholesterol, serum 25 mg/dL 32-96 triglyceride, serum, fasting 429 mg/dL 30-200 cholesterol, serum 211 mg/dL 130-200 Lab Report: Prostatic Specific Ag - Chemistry prostate specific antigen 1.31 ng/mL 0.00-4.00 Lab Report: RapidStrep Rflx/Cx - Lab Microbial identification kit, rapid strep method Negative-Throat Culture to Follow Negative Lab Report: VITAMIN D, 25-HYDROXY/04901 - Chemistry vitamin D 25-hydroxy, serum 23 ng/mL 30-100 Encounters Code Encounter Date Provider Facility CPT-10744 Level 3 Est. Patient 12:38:24 CDT Desmond Diaz DO [facility] CPT-56462 Level 4 Est. 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 Patient 14:50:10 CDT Robbie Busby MD [facility] CPT-74729 Level 4 Est. Patient 23:30:43 CDT Robbie Busby MD [facility] CPT-36886 Level 4 Est. Patient 10:30:43 CDT Robbie Busby MD [facility] CPT-52983 Level 3 Est. Patient 17:08:12 CDT Alex ALVAREZ [facility] CPT-62556 Level 4 Est. Patient 17:51:38 CDT Robbie Busby MD [facility] CPT-84612 Level 4 Est. Patient 14:00:21 CDT Robbie Busby MD [facility] CPT-84280 Level 4 Est. Patient 12:46:48 CDT Robbie Busby MD [facility] CPT-16356 Level 4 Est. Patient 13:34:33 CDT Robbie Busby MD [facility] CPT-52512 Level 4 Est. Patient 16:58:28 CDT Robbie Busby MD [facility] CPT-51167 Level 3 Est. Patient 19:36:53 CDT Alex ALVAREZ [facility] CPT-17980 Level 3 Est. Patient 12:58:15 CDT Robbie Busby MD [facility] Procedures Code Procedure Name Date Entry Date Standard Description CPT-00646 Venipuncture Draw Fee 13:07:17 CDT CPT-G0008 Administration of Influenza Virus Vaccine 16:09:59 CDT CPT-05555 Fluzone Quadrivalent Intramuscular Suspension 0.5 ML 16: 09:59 CDT CPT-75510 Spec Collection and Handling Fee 15:05:50 CDT
--- OUTSIDE RECORDS SUMMARY | 2018-04-18 11:18 | XMS REPORT | Clinical Summary ---
[...] unspecified sites URI 465.9 Active Rober Rodríguez [employer] Acute upper respiratory infections of unspecified site [...] NDC Status Provider Patient Instruction VITAMIN D3 52474 UNIT ORAL TABS 2 po weekly CHOLECALCIFEROL 95202883797 Active JONATHAN Moncada Active OXYCODONE HCL ER 10 MG ORAL T12A 1 tab po 3 times qd. OXYCODONE HCL 85970260937 Active Robbie Busby MD Active NITROSTAT 0.4 MG SUBL PRN NITROGLYCERIN 76288284981 No Longer Active Robbie Busby MD Active LORATADINE 10 MG TABS 1 tablet by mouth daily for congestion and allergies. LORATADINE 57970131128 No Longer Active Robbie Busby MD Active FLONASE 50 MCG/ACT SUSP 1 spray each nostril twice daily for allergies and runny nose FLUTICASONE PROPIONATE 22198463600 No Longer Active Robbie Busby MD Active FIORICET 50-300-40 MG ORAL CAPS take 1 tab po qday prn migraines. [id number] 20659139448 No Longer Active Robbie Busby MD Active VITAMIN D3 96534 UNIT CAPS 2 CAPS PO WEEKLY CHOLECALCIFEROL 61851676138 No Longer Active Robbie Busby MD Active CYCLOBENZAPRINE HCL 10 MG TABS 1 tablet by mouth three times daily as needed for muscle spasm/pain for 10 days CYCLOBENZAPRINE HCL 97779906377 No Longer Active Robbie Busby MD Active PREDNISONE 20 MG TAB take 3 tabs daily for 3 days, 2 tabs daily for 3 days, 1 tab daily for 3 days, 1/2 tab daily for 4 days PREDNISONE 45785391064 No Longer Active Erin Garsia APRN Active CLONIDINE HCL 0.2 MG ORAL TABS 1 TAB BY MOUTH EVERY 8 HOURS 12/29 CLONIDINE HCL 19324313483 No Longer Active Erin Garsia APRN Active MECLIZINE HCL 25 MG TAB one 4 times a day as needed for dizziness MECLIZINE HCL 00263436348 No Longer Active Erin Garsia APRN Active SPIRONOLACTONE 25 MG TAB 4 tablets by mouth daily SPIRONOLACTONE 48399905213 No Longer Active Erin Garsia APRN Active LEVAQUIN 500 MG TAB 1 tablet by mouth daily for 7 days LEVOFLOXACIN 60369156728 No Longer Active Erin Garsia APRN Active BACTRIM DS 800-160 MG TAB 1 tab by mouth twice daily TRIMETHOPRIM-SULFAMETHOXAZOLE 28817322500 No Longer Active Robbie Busby MD Active HYDRALAZINE HCL 50 MG ORAL TABS TWO BY MOUTH THREE TIMES DAILY HYDRALAZINE HCL 08293416318 No Longer Active Rober Rodríguez APRN Active HYDROCODONE-ACETAMINOPHEN 5-325 MG TABS 1 tab by mouth BID prn back pain 2013 HYDROCODONE-ACETAMINOPHEN 87102396069 No Longer Active Jillina Anne ARGUELLO Active HYDROCHLOROTHIAZIDE TABS Take one by mouth daily HYDROCHLOROTHIAZIDE TABS 19958936762 No Longer Active Jillina Frazell GRAIN BUYER Active LAMISIL 125 MG ORAL PACK 1 TAB PO DAILY TERBINAFINE HCL 05920513077 No Longer Active Jillina Frazell GRAIN BUYER Active TRILEPTAL 150 MG ORAL TABS 1 TAB PO Q HS OXCARBAZEPINE 56412914299 No Longer Active Jillina Frazell GRAIN BUYER Active BETADINE 10 % EXT SOLN 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 POVIDONE-IODINE 10015183584 No Longer Active Jillina Frazell GRAIN BU[employer]ER Active NYSTATIN 925712 UNIT/ML M/T SUSP 5mL po QID x 10 days NYSTATIN 53730973324 No Longer Active Erin Garsia APRN Active PREDNISONE 20 MG TAB 1 tablet twice daily for 2 days, then 1 tablet once daily for 2 days PREDNISONE 60440017791 No Longer Active Robbie Busby MD Active CEFDINIR 300 MG ORAL CAPS Take 1 cap po bid x 10 days CEFDINIR 68391475729 No Longer Active Robbie Busby MD Active AMLODIPINE BESYLATE 10 MG TABS 1 tablet by mouth daily AMLODIPINE BESYLATE 53268940873 Active Robbie Busby MD Active CARVEDILOL 25 MG TABS 1 & 1/2 TAB po BID CARVEDILOL 27477494939 Active Robbie Busby MD Active NEXIUM 40 MG CPDR 1 cap by mouth daily ESOMEPRAZOLE MAGNESIUM 91485188516 Active Robbie Busby MD Active PROTONIX 40 MG SOLR 1 po qday for acid reflux PANTOPRAZOLE SODIUM 09866538275 No Longer Active Gali Raida Active KEFLEX 500 MG CAP 1 po TID x 10 days CEPHALEXIN 40094061130 No Longer Active Robbie Busby MD Active TOPIRAMATE 50 MG ORAL TABS take 1 tab po BID for migraines. TOPIRAMATE 93059832866 Active Robbie Busby MD Active TEMAZEPAM 15 MG ORAL CAPS 1 TAB PO Q HS TEMAZEPAM 44265354995 Active Robbie Busby MD Active ALPRAZOLAM 2 MG ORAL TABS 1 TAB PO BID ALPRAZOLAM 87152787958 Active Robbie Busby MD Active FENOFIBRATE 145 MG TABS Take one by mouth daily FENOFIBRATE 80210842893 No Longer Active Robbie Busby MD Active SPIRONOLACTONE 50 MG TABS 1 tablet by mouth twice a day SPIRONOLACTONE 24149700871 No Longer Active Robbie Busby MD Active HYDRALAZINE HCL 25 MG TABS 1 tablet by mouth tid for hypertension HYDRALAZINE HCL 31760213936 No Longer Active Robbie Busby MD Active VIIBRYD 40 MG TABS take 1 tab po qday for depression. VILAZODONE HCL 43529123353 No Longer Active Robbie Busby MD Active TERBINAFINE HCL 250 MG TABS 1 tab po qday for foot infection 2014 TERBINAFINE HCL 25194364481 No Longer Active Robbie Busby MD Active GABAPENTIN 300 MG CAPS 1 po q hs for nerve pain GABAPENTIN 64501964586 Active Robbie Busby MD Active CHERATUSSIN AC 100-10 MG/5ML ORAL SOLN 7.5 mL PO q 4-6 hrs PRN cough GUAIFENESIN-CODEINE 79039377454 No Longer Active Robbie Busby MD Active AZITHROMYCIN 250 MG ORAL TABS 2 tablets PO today---then, 1 tablet PO daily x 4 more days (and 1 optional refill) AZITHROMYCIN 77759134062 No Longer Active Robbie Busby MD Active NORVASC 10 MG TAB 1 tablet by mouth daily AMLODIPINE BESYLATE 91782585215 No Longer Active Alex ALVAREZ Active IMDUR 60 MG TAB CR take 1 tab po qday for blood pressure ISOSORBIDE MONONITRATE Active Robbie Busby MD Active ISOSORBIDE DINITRATE 30 MG TABS Take one by mouth daily ISOSORBIDE DINITRATE 89986321618 No Longer Active Robbie Busby MD Active VIIBRYD 40 MG TABS 1 TA B PO DAILY VILAZODONE HCL 53315508531 Active Robbie Busby MD Active ZITHROMAX 250 MG TAB 2 po today, then 1 po q days 2-5 AZITHROMYCIN 88378440152 No Longer Active Robbie Busby MD Active [id number]-4 0.3 MG/24HR PTWK apply 2 patches q week for HTN CLONIDINE HCL 80173545977 Active Robbie Busby MD Active DOXAZOSIN MESYLATE 4 MG TABS Take one by mouth daily DOXAZOSIN MESYLATE 20723718755 Active Robbie Busby MD Active TOPROL XL 200 MG [id number] Take one by mouth daily METOPROLOL SUCCINATE 55077008297 Active Robbie Busby MD Active VENLAFAXINE HCL ER 150 MG [id number]-VVM Take one by mouth daily VENLAFAXINE HCL 29134889950 Active Robbie Busby MD Active LIPITOR 40 MG TABS Take one by mouth daily ATORVASTATIN CALCIUM 26506109012 Active Robbie Busby MD Active ISOSORBIDE DINITRATE 30 MG TABS Take one by mouth daily ISOSORBIDE DINITRATE 30 MG TABS 414544 ISOSORBIDE DINITRATE Inactive NORVASC 10 MG TAB 1 tablet by mouth daily NORVASC 10 MG TAB 848627 AMLODIPINE BESYLATE Inactive AZITHROMYCIN 250 MG ORAL TABS 2 tablets PO today---then, 1 tablet PO daily x 4 more days (and 1 optional refill) AZITHROMYCIN 250 MG ORAL TABS 8143878 AZITHROMYCIN Inactive CHERATUSSIN AC 100-10 MG/5ML ORAL SOLN 7.5 mL PO q 4-6 hrs PRN cough CHERATUSSIN AC 100-10 MG/5ML ORAL SOLN 404234 GUAIFENESIN- CODEINE Inactive VIIBRYD 40 MG TABS take 1 tab po qday for depression. VIIBRYD 40 MG TABS VILAZODONE HCL Inactive HYDRALAZINE HCL 25 MG TABS 1 tablet by mouth tid for hypertension HYDRALAZINE HCL 25 MG TABS 957551 HYDRALAZINE HCL Inactive SPIRONOLACTONE 50 MG TABS 1 tablet by mouth twice a day SPIRONOLACTONE 50 MG TABS 064762 SPIRONOLACTONE Inactive FENOFIBRATE 145 MG TABS Take one by mouth daily FENOFIBRATE 145 MG TABS 255251 FENOFIBRATE Inactive PROTONIX 40 MG SOLR 1 po qday for acid reflux PROTONIX 40 MG SOLR 718382 PANTOPRAZOLE SODIUM Inactive CEFDINIR 300 MG ORAL CAPS Take 1 cap po bid x 10 days CEFDINIR 300 MG ORAL CAPS 403197 CEFDINIR Inactive PREDNISONE 20 MG TAB 1 tablet twice daily for 2 days, then 1 tablet once daily for 2 days PREDNISONE 20 MG TAB 890813 PREDNISONE Inactive NYSTATIN 572826 UNIT/ML M/T SUSP 5mL po QID x 10 days NYSTATIN 435507 UNIT/ML M/T SUSP 220182 NYSTATIN Inactive BETADINE 10 % EXT SOLN 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 BETADINE 10 % EXT SOLN 5515998 POVIDONE-IODINE Inactive TRILEPTAL 150 MG ORAL TABS 1 TAB PO Q HS TRILEPTAL 150 MG ORAL TABS 158021 OXCARBAZEPINE Inactive LAMISIL 125 MG ORAL PACK 1 TAB PO DAILY LAMISIL 125 MG ORAL PACK TERBINAFINE HCL Inactive HYDROCHLOROTHIAZIDE TABS Take one by mouth daily HYDROCHLOROTHIAZIDE TABS HYDROCHLOROTHIAZIDE TABS Inactive HYDROCODONE-ACETAMINOPHEN 5-325 MG TABS 1 tab by mouth BID prn back pain 2013 HYDROCODONE-ACETAMINOPHEN 5-325 MG TABS 902994 HYDROCODONE -ACETAMINOPHEN Inactive HYDRALAZINE HCL 50 MG ORAL TABS TWO BY MOUTH THREE TIMES DAILY HYDRALAZINE HCL 50 MG ORAL TABS 340416 HYDRALAZINE HCL Inactive LEVAQUIN 500 MG TAB 1 tablet by mouth daily for 7 days LEVAQUIN 500 MG TAB 468322 LEVOFLOXACIN Inactive SPIRONOLACTONE 25 MG TAB 4 tablets by mouth daily SPIRONOLACTONE 25 MG TAB 734591 SPIRONOLACTONE Inactive MECLIZINE HCL 25 MG TAB one 4 times a day as needed for dizziness MECLIZINE HCL 25 MG TAB 514008 MECLIZINE HCL Inactive CLONIDINE HCL 0.2 MG ORAL TABS 1 TAB BY MOUTH EVERY 8 HOURS 12/29 CLONIDINE HCL 0.2 MG ORAL TABS 889743 CLONIDINE HCL Inactive CYCLOBENZAPRINE HCL 10 MG TABS 1 tablet by mouth three times daily as needed for muscle spasm/pain for 10 days CYCLOBENZAPRINE HCL 10 MG TABS 587039 CYCLOBENZAPRINE HCL Inactive VITAMIN D3 67029 UNIT CAPS 2 CAPS PO WEEKLY VITAMIN D3 27340 UNIT CAPS CHOLECALCIFEROL Inactive FIORICET 50-300-40 MG ORAL CAPS take 1 tab po qday prn migraines. FIORICET 50-300-40 MG ORAL CAPS 737840 [id number] Inactive FLONASE 50 MCG/ACT SUSP 1 spray each nostril twice daily for allergies and runny nose FLONASE 50 MCG/ACT SUSP 5593073 FLUTICASONE PROPIONATE Inactive LORATADINE 10 MG TABS 1 tablet by mouth daily for congestion and allergies. LORATADINE 10 MG TABS 016517 LORATADINE Inactive NITROSTAT 0.4 MG SUBL PRN NITROSTAT 0.4 MG SUBL 544716 NITROGLYCERIN Inactive ZITHROMAX 250 MG TAB 2 po today, then 1 po q days 2-5 ZITHROMAX 250 MG TAB 6964635 AZITHROMYCIN Inactive TERBINAFINE HCL 250 MG TABS 1 tab po qday for foot infection 2014 TERBINAFINE HCL 250 MG TABS 011814 TERBINAFINE HCL Inactive KEFLEX 500 MG CAP 1 po TID x 10 days KEFLEX 500 MG CAP 898893 CEPHALEXIN Inactive BACTRIM DS 800-160 MG TAB 1 tab by mouth twice daily BACTRIM DS 800-160 MG TAB 238354 TRIMETHOPRIM-SULFAMETHOXAZOLE Inactive PREDNISONE 20 MG TAB take 3 tabs daily for 3 days, 2 tabs daily for 3 days, 1 tab daily for 3 days, 1/2 tab daily for 4 days PREDNISONE 20 MG TAB 794394 PREDNISONE Inactive Advance Directives Directive Description Start [...] % 11.0-15.0 platelet count 185 THOUSAND/UL 10*3/mm3 068-926 1352/04/14 mean platelet volume 10.9 fL 7.5-12.5 Lab Report: LIPID PANEL, TSH/899, T4, FREE/866 - Chemistry cholesterol, serum 220 mg/dL 533-815 2482/04/14 HDL cholesterol, serum 30 mg/dL > OR=40 [...] mg/dL Encounters Code Encounter Date Provider Facility CPT-79529 Level 3 Est. Patient 16:07:10 CDT Robbie Busby MD [facility] CPT-90161 Level 4 Est. Patient 11:56:16 CDT Erin Garsia [facility] CPT-84929 Level 3 Est. Patient 17:48:02 CDT Robbie Busby MD [facility] CPT-06855 Level 4 Est. Patient 12:00:49 ORTHOTIC/PROSTHETIC PRACTITIONER Rober Rodríguez [facility] CPT-05208 Level 3 Est. Patient 09:16:37 CDT Robbie Busby MD [facility] CPT-37495 Level 3 Est. Patient 19:38:43 CDT Robbie Busby MD [facility] CPT-67276 Level 3 Est. Patient 11:53:38 CDT Robbie Busby MD [facility] CPT-95021 Level 4 Est. Patient 12:52:22 CDT Rober Rodríguez [facility] CPT-41342 Level 4 Est. Patient 22:55:17 CDT Robbie Busby MD [facility] CPT-87553 Level 3 Est. Patient 12:38:24 CDT Desmond Diaz DO [facility] CPT-73700 Level 4 Est. Patient 11:25:03 ORTHOTIC/PROSTHETIC PRACTITIONER Robbie Busby MD [facility] CPT-02243 Level 4 Est. Patient 14:50:10 CDT Robbie Busby MD [facility] CPT-47908 Level 4 Est. Patient 23:30:43 CDT Robbie Busby MD [facility] CPT-15591 Level 4 Est. Patient 10:30:43 CDT Robbie Busby MD [facility] CPT-58179 Level 3 Est. Patient 17:08:12 CDT Alex Shaw [facility] CPT-12099 Level 4 Est. Patient 17:51:38 CDT Robbie Busby MD [facility] CPT-95152 Level 4 Est. Patient 14:00:21 CDT Robbie Busby MD [facility] CPT-20625 Level 4 Est. Patient 12:46:48 CDT Robbie Busby MD [facility] CPT-86532 Level 4 Est. Patient 13:34:33 CDT Robbie Busby MD [facility] CPT-24369 Level 4 Est. Patient 16:58:28 CDT Robbie Busby MD [facility] CPT-82693 Level 3 Est. Patient 19:36:53 CDT Alex ALVAREZ [facility] CPT-48012 Level 3 Est. Patient 12:58:15 CDT Robbie uBsby MD [facility] Procedures Code Procedure Name Date Entry Date Standard Description CPT-51594 Ribs unilateral 2V - XRAY USE ONLY 12:10:11 CDT CPT-34032 First Vx - Ix admin for Medicare patients 16:32:53 CDT CPT-80802 Boostrix Intramuscular Suspension 5-2.5-18.5 16:32:53 CDT CPT-50579 TB Skin Test 11:42:28 CDT CPT-66525 Tdap 7yrs or > 11:42:28 CDT CPT-J0696 Rocephin 1000 mg (Ceftriaxone) 17:43:43 ORTHOTIC/PROSTHETIC PRACTITIONER CPT-J1040 Depo Medrol 80 mg (Methyl Prednisolone Acetate) 17:43: 43 ORTHOTIC/PROSTHETIC PRACTITIONER CPT-J1100 Decadron 8mg (Dexamethasone) 17:43:42 ORTHOTIC/PROSTHETIC PRACTITIONER CPT-74697 Abx/Therapy Injection 17:43:42 ORTHOTIC/PROSTHETIC PRACTITIONER CPT-76961 Abx/Therapy Injection 17:43:42 ORTHOTIC/PROSTHETIC PRACTITIONER CPT-J1040 Depo Medrol 80 mg (Methyl Prednisolone Acetate) 09:43: 34 ORTHOTIC/PROSTHETIC PRACTITIONER CPT-J1100 Decadron 8mg (Dexamethasone) 09:43:34 ORTHOTIC/PROSTHETIC PRACTITIONER CPT-J0696 Rocephin 1gm Inj Solr 09:43:34 ORTHOTIC/PROSTHETIC PRACTITIONER CPT-82166 Wound Culture - LAB USE ONLY 14:00:21 CDT CPT-I/D I/D Abscess 09:16:37 CDT CPT-03045 Venipuncture Draw Fee 15:20:23 CDT CPT-88125 Microalbumin - LAB USE ONLY 16:02:19 CDT CPT-44758 CBC - LAB USE ONLY 16:02:19 CDT CPT-65913 Venipuncture Draw Fee 16:02:19 CDT CPT-G0438 Initial Annual Wellness Exam 08:10:28 CDT CPT-67817 Venipuncture Draw Fee 13:07:17 CDT CPT-G0008 Administration of Influenza Virus Vaccine 16:09:59 CDT CPT-55298 Fluzone Quadrivalent Intramuscular Suspension 0.5 ML 16: 09:59 CDT CPT-50581 Spec Collection and Handling Fee 15:05:50 CDT
--- OUTSIDE RECORDS SUMMARY | 2018-04-18 11:19 | XMS REPORT | Clinical Summary ---
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 Unspecified essential hypertension Sinusitis - acute 461.9 [...] Status Provider Patient Instruction GUAIFENESIN 600 MG [id number] 1 tab po q am GUAIFENESIN 31594027057 No Longer Active Robbie Busby MD Active DIVALPROEX SODIUM ER 500 MG ORAL TABLET EXTENDED RELEASE 24 HOUR Once daily DIVALPROEX SODIUM 12261160918 Active Robbie Busby MD Active DEPO-TESTOSTERONE 200 MG/ML IM SOLN 1 IM Injections every 2 weeks for low testosterone TESTOSTERONE CYPIONATE 79900368496 Active Zulema Blank LPN Active CYCLOBENZAPRINE HCL 10 MG ORAL TABS 1 po TID PRN muscle spasm/pain for 10 days CYCLOBENZAPRINE HCL 43380199178 Active JONATHAN Moncada Active FLUTICASONE PROPIONATE 50 MCG/ACT SUSP 2 sprays per nostril bid for 1 week, then 1 spray bid FLUTICASONE PROPIONATE 23493180678 Active Jillina Anne 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 MACHINE OPERATOR Active HYDRALAZINE HCL 25 MG ORAL TABS Take 1 tab BID. HYDRALAZINE HCL 86736842250 Active Agnieszkaina Anne 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 MACHINE OPERATOR Active VITAMIN D3 75868 UNIT ORAL TABS 2 po weekly CHOLECALCIFEROL 22497176449 Active Robbie Busby MD Active OXYCODONE HCL ER 10 MG ORAL T12A 1 tab po 3 times qd. OXYCODONE HCL 86764442845 Active Robbie Busby MD Active NITROSTAT 0.4 MG SUBL PRN NITROGLYCERIN 82968653813 No Longer Active Robbie Busby MD Active LORATADINE 10 MG TABS 1 tablet by mouth daily for congestion and allergies. LORATADINE 88686139516 No Longer Active Robbie Busby MD Active FLONASE 50 MCG/ACT SUSP 1 spray each nostril twice daily for allergies and runny nose FLUTICASONE PROPIONATE 84489277253 No Longer Active Robbie Busby MD Active FIORICET 50-300-40 MG ORAL CAPS take 1 tab po qday prn migraines. [id number] 28435008570 No Longer Active Robbie Busby MD Active VITAMIN D3 06548 UNIT CAPS 2 CAPS PO WEEKLY CHOLECALCIFEROL 36612262408 No Longer Active Robbie Busby MD Active CYCLOBENZAPRINE HCL 10 MG TABS 1 tablet by mouth three times daily as needed for muscle spasm/pain for 10 days CYCLOBENZAPRINE HCL 60224870336 No Longer Active Robbie Busby MD Active PREDNISONE 20 MG TAB take 3 tabs daily for 3 days, 2 tabs daily for 3 days, 1 tab daily for 3 days, 1/2 tab daily for 4 days PREDNISONE 12433445616 No Longer Active Erin Garsia APRN Active CLONIDINE HCL 0.2 MG ORAL TABS 1 TAB BY MOUTH EVERY 8 HOURS 12/29 CLONIDINE HCL 41350578818 No Longer Active Erin Garsia APRN Active MECLIZINE HCL 25 MG TAB one 4 times a day as needed for dizziness MECLIZINE HCL 19656509781 No Longer Active Erin Garsia APRN Active SPIRONOLACTONE 25 MG TAB 4 tablets by mouth daily SPIRONOLACTONE 29939702101 No Longer Active Erin Garsia APRN Active LEVAQUIN 500 MG TAB 1 tablet by mouth daily for 7 days LEVOFLOXACIN 22412381689 No Longer Active Erin Garsia APRN Active BACTRIM DS 800-160 MG TAB 1 tab by mouth twice daily TRIMETHOPRIM-SULFAMETHOXAZOLE 43874411978 No Longer Active Robbie Busby MD Active HYDRALAZINE HCL 50 MG ORAL TABS TWO BY MOUTH THREE TIMES DAILY HYDRALAZINE HCL 48399498385 No Longer Active Jillld Rodríguez APRN Active HYDROCODONE-ACETAMINOPHEN 5-325 MG TABS 1 tab by mouth BID prn back pain 2013 HYDROCODONE-ACETAMINOPHEN 39611238532 No Longer Active Jillina Frakierstenl 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 HYDROCHLOROTHIAZIDE TABS Take one by mouth daily HYDROCHLOROTHIAZIDE TABS 00181782457 No Longer Active Jillina Frazell 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 MACHINE OPERATOR Active LAMISIL 125 MG ORAL PACK 1 TAB PO DAILY TERBINAFINE HCL 04700592476 No Longer Active Jillina Frazell 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 MACHINE 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 TRILEPTAL 150 MG ORAL TABS 1 TAB PO Q HS OXCARBAZEPINE 73323268405 No Longer Active Jillina Frakierstenl 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 MACHINE OPERATOR Active BETADINE 10 % EXT SOLN 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 POVIDONE-IODINE 89752728277 No Longer Active Rober Rodríguez APRN Active NYSTATIN 912614 UNIT/ML M/T SUSP 5mL po QID x 10 days NYSTATIN 79327083296 No Longer Active Erin Garsia APRN Active PREDNISONE 20 MG TAB 1 tablet twice daily for 2 days, then 1 tablet once daily for 2 days PREDNISONE 87309740025 No Longer Active Robbie Busby MD Active CEFDINIR 300 MG ORAL CAPS Take 1 cap po bid x 10 days CEFDINIR 37972017303 No Longer Active Robbie Busby MD Active AMLODIPINE BESYLATE 10 MG TABS 1 tablet by mouth daily AMLODIPINE BESYLATE 59913459070 Active Robbie Busby MD Active CARVEDILOL 25 MG TABS 1 & 1/2 TAB po BID CARVEDILOL 16123416319 Active Robbie Busby MD Active NEXIUM 40 MG CPDR 1 cap by mouth daily ESOMEPRAZOLE MAGNESIUM 95316242464 Active Robbie Busby MD Active PROTONIX 40 MG SOLR 1 po qday for acid reflux PANTOPRAZOLE SODIUM 02752193587 No Longer Active Gali Raida Active KEFLEX 500 MG CAP 1 po TID x 10 days CEPHALEXIN 42514782845 No Longer Active Robbie Busby MD Active TOPIRAMATE 50 MG ORAL TABS take 1 tab po BID for migraines. TOPIRAMATE 87871639975 Active Robbie Busby MD Active TEMAZEPAM 15 MG ORAL CAPS 1 TAB PO Q HS TEMAZEPAM 60927424485 Active Robbie Busby MD Active ALPRAZOLAM 2 MG ORAL TABS 1 TAB PO BID ALPRAZOLAM 48286570513 Active Robbie Busby MD Active FENOFIBRATE 145 MG TABS Take one by mouth daily FENOFIBRATE 41014996946 No Longer Active Robbie Busby MD Active SPIRONOLACTONE 50 MG TABS 1 tablet by mouth twice a day SPIRONOLACTONE 38890729566 No Longer Active Robbie Busby MD Active HYDRALAZINE HCL 25 MG TABS 1 tablet by mouth tid for hypertension HYDRALAZINE HCL 95586639934 No Longer Active Robbie Busby MD Active VIIBRYD 40 MG TABS take 1 tab po qday for depression. VILAZODONE HCL 09107427957 No Longer Active Robbie Busby MD Active TERBINAFINE HCL 250 MG TABS 1 tab po qday for foot infection 2014 TERBINAFINE HCL 01241004662 No Longer Active Robbie Busby MD Active GABAPENTIN 300 MG CAPS 1 po q hs for nerve pain GABAPENTIN 70127041577 Active Robbie Busby MD Active CHERATUSSIN AC 100-10 MG/5ML ORAL SOLN 7.5 mL PO q 4-6 hrs PRN cough GUAIFENESIN-CODEINE 13274854693 No Longer Active Robbie Busby MD Active AZITHROMYCIN 250 MG ORAL TABS 2 tablets PO today---then, 1 tablet PO daily x 4 more days (and 1 optional refill) AZITHROMYCIN 79401348954 No Longer Active Robbie Busby MD Active NORVASC 10 MG TAB 1 tablet by mouth daily AMLODIPINE BESYLATE 50721443913 No Longer Active Alex ALVAREZ Active IMDUR 60 MG TAB CR take 1 tab po qday for blood pressure ISOSORBIDE MONONITRATE Active Robbie Busby MD Active ISOSORBIDE DINITRATE 30 MG TABS Take one by mouth daily ISOSORBIDE DINITRATE 38381903724 No Longer Active Robbie Busby MD Active VIIBRYD 40 MG TABS 1 TA B PO DAILY VILAZODONE HCL 34571535087 Active Robbie Busby MD Active ZITHROMAX 250 MG TAB 2 po today, then 1 po q days 2-5 AZITHROMYCIN 15055200423 No Longer Active Robbie Busby MD Active [id number]-7 0.3 MG/24HR PTWK apply 2 patches q week for HTN CLONIDINE HCL 33087712010 Active Robbie Busby MD Active DOXAZOSIN MESYLATE 4 MG TABS Take one by mouth daily DOXAZOSIN MESYLATE 89406525900 Active Robbie Busby MD Active TOPROL XL 200 MG [id number] Take one by mouth daily METOPROLOL SUCCINATE 26450569923 Active Robbie Busby MD Active VENLAFAXINE HCL ER 150 MG [id number]-BGL Take one by mouth daily VENLAFAXINE HCL 37477224722 Active Robbie Busby MD Active LIPITOR 40 MG TABS Take one by mouth daily ATORVASTATIN CALCIUM 07017401502 Active Robbie Busby MD Active ISOSORBIDE DINITRATE 30 MG TABS Take one by mouth daily ISOSORBIDE DINITRATE 30 MG TABS 145906 ISOSORBIDE DINITRATE Inactive NORVASC 10 MG TAB 1 tablet by mouth daily NORVASC 10 MG TAB 751308 AMLODIPINE BESYLATE Inactive AZITHROMYCIN 250 MG ORAL TABS 2 tablets PO today---then, 1 tablet PO daily x 4 more days (and 1 optional refill) AZITHROMYCIN 250 MG ORAL TABS 870862 AZITHROMYCIN Inactive CHERATUSSIN AC 100-10 MG/5ML ORAL SOLN 7.5 mL PO q 4-6 hrs PRN cough CHERATUSSIN AC 100-10 MG/5ML ORAL SOLN 058099 GUAIFENESIN- CODEINE Inactive VIIBRYD 40 MG TABS take 1 tab po qday for depression. VIIBRYD 40 MG TABS VILAZODONE HCL Inactive HYDRALAZINE HCL 25 MG TABS 1 tablet by mouth tid for hypertension HYDRALAZINE HCL 25 MG TABS 585120 HYDRALAZINE HCL Inactive SPIRONOLACTONE 50 MG TABS 1 tablet by mouth twice a day SPIRONOLACTONE 50 MG TABS 361071 SPIRONOLACTONE Inactive FENOFIBRATE 145 MG TABS Take one by mouth daily FENOFIBRATE 145 MG TABS 837286 FENOFIBRATE Inactive PROTONIX 40 MG SOLR 1 po qday for acid reflux PROTONIX 40 MG SOLR 153321 PANTOPRAZOLE SODIUM Inactive CEFDINIR 300 MG ORAL CAPS Take 1 cap po bid x 10 days CEFDINIR 300 MG ORAL CAPS 145738 CEFDINIR Inactive PREDNISONE 20 MG TAB 1 tablet twice daily for 2 days, then 1 tablet once daily for 2 days PREDNISONE 20 MG TAB 638947 PREDNISONE Inactive NYSTATIN 803086 UNIT/ML M/T SUSP 5mL po QID x 10 days NYSTATIN 416475 UNIT/ML M/T SUSP 174087 NYSTATIN Inactive BETADINE 10 % EXT SOLN 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 BETADINE 10 % EXT SOLN 5790524 POVIDONE-IODINE Inactive TRILEPTAL 150 MG ORAL TABS 1 TAB PO Q HS TRILEPTAL 150 MG ORAL TABS 506142 OXCARBAZEPINE Inactive LAMISIL 125 MG ORAL PACK 1 TAB PO DAILY LAMISIL 125 MG ORAL PACK TERBINAFINE HCL Inactive HYDROCHLOROTHIAZIDE TABS Take one by mouth daily HYDROCHLOROTHIAZIDE TABS HYDROCHLOROTHIAZIDE TABS Inactive HYDROCODONE-ACETAMINOPHEN 5-325 MG TABS 1 tab by mouth BID prn back pain 2013 HYDROCODONE-ACETAMINOPHEN 5-325 MG TABS 757980 HYDROCODONE -ACETAMINOPHEN Inactive HYDRALAZINE HCL 50 MG ORAL TABS TWO BY MOUTH THREE TIMES DAILY HYDRALAZINE HCL 50 MG ORAL TABS 478593 HYDRALAZINE HCL Inactive LEVAQUIN 500 MG TAB 1 tablet by mouth daily for 7 days LEVAQUIN 500 MG TAB 716555 LEVOFLOXACIN Inactive SPIRONOLACTONE 25 MG TAB 4 tablets by mouth daily SPIRONOLACTONE 25 MG TAB 882198 SPIRONOLACTONE Inactive MECLIZINE HCL 25 MG TAB one 4 times a day as needed for dizziness MECLIZINE HCL 25 MG TAB 338132 MECLIZINE HCL Inactive CLONIDINE HCL 0.2 MG ORAL TABS 1 TAB BY MOUTH EVERY 8 HOURS 12/29 CLONIDINE HCL 0.2 MG ORAL TABS 040541 CLONIDINE HCL Inactive CYCLOBENZAPRINE HCL 10 MG TABS 1 tablet by mouth three times daily as needed for muscle spasm/pain for 10 days CYCLOBENZAPRINE HCL 10 MG TABS 099070 CYCLOBENZAPRINE HCL Inactive VITAMIN D3 97190 UNIT CAPS 2 CAPS PO WEEKLY VITAMIN D3 96358 UNIT CAPS CHOLECALCIFEROL Inactive FIORICET 50-300-40 MG ORAL CAPS take 1 tab po qday prn migraines. FIORICET 50-300-40 MG ORAL CAPS 232552 [id number] Inactive FLONASE 50 MCG/ACT SUSP 1 spray each nostril twice daily for allergies and runny nose FLONASE 50 MCG/ACT SUSP 0609326 FLUTICASONE PROPIONATE Inactive LORATADINE 10 MG TABS 1 tablet by mouth daily for congestion and allergies. LORATADINE 10 MG TABS 039576 LORATADINE Inactive NITROSTAT 0.4 MG SUBL PRN NITROSTAT 0.4 MG SUBL 406264 NITROGLYCERIN Inactive GUAIFENESIN 600 MG [id number] 1 tab po q am GUAIFENESIN 600 MG [id number] GUAIFENESIN Inactive ZITHROMAX 250 MG TAB 2 po today, then 1 po q days 2-5 ZITHROMAX 250 MG TAB 933006 AZITHROMYCIN Inactive TERBINAFINE HCL 250 MG TABS 1 tab po qday for foot infection 2014 TERBINAFINE HCL 250 MG TABS 966165 TERBINAFINE HCL Inactive KEFLEX 500 MG CAP 1 po TID x 10 days KEFLEX 500 MG CAP 982240 CEPHALEXIN Inactive BACTRIM DS 800-160 MG TAB 1 tab by mouth twice daily BACTRIM DS 800-160 MG TAB 416028 TRIMETHOPRIM-SULFAMETHOXAZOLE Inactive PREDNISONE 20 MG TAB take 3 tabs daily for 3 days, 2 tabs daily for 3 days, 1 tab daily for 3 days, 1/2 tab daily for 4 days PREDNISONE 20 MG TAB 890174 PREDNISONE Inactive Advance Directives Directive Description Start [...] AUTO - Chemistry sodium, serum 142 mmol/L 285-109 0775/07/17 carbon dioxide, venous blood 28.2 mmol/L 21.0-32.0 [...] % 11.0-15.0 platelet count 185 THOUSAND/UL 10*3/mm3 884-581 2563/04/14 mean platelet volume 10.9 fL 7.5-12.5 Lab Report: LIPID PANEL, TSH/899, T4, FREE/866 - Chemistry cholesterol, serum 220 mg/dL 534-903 9086/04/14 HDL cholesterol, serum 30 mg/dL > OR=40 [...] 1.80 ng/mL 0.00-4.00 Lab Report: VITAMIN D, 25-HYDROXY/17149 - Chemistry vitamin D 25-hydroxy, serum 25 ng/mL 30-100 Office Visit: Confusion, dizziness after fall - Basic LDL target level 130 mg/dL Office Visit: Confusion, dizziness after fall - Chemistry HDL cholesterol, serum, target level 40 mg/dL triglyceride, target level 150 mg/dL cholesterol, target level 200 mg/dL Encounters Code Encounter Date Provider Facility CPT-36624 Level 3 Est. Patient 15:40:49 CDT Robbie Busby MD [facility] CPT-97740 Level 4 Est. Patient 15:18:19 CDT Robbie Busby MD [facility] CPT-17709 Level 3 Est. Patient 09:00:37 CDT Rober Rodríguez [facility] CPT-98387 Level 3 Est. Patient 16:07:10 CDT Robbie Busby MD [facility] CPT-18839 Level 4 Est. Patient 11:56:16 CDT Erin Garsia [facility] CPT-65574 Level 3 Est. Patient 17:48:02 CDT Robbie Busby MD [facility] CPT-47052 Level 4 Est. 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 Patient 09:16:37 CDT Robbie Busby MD [facility] CPT-55415 Level 3 Est. Patient 19:38:43 CDT Robbie Busby MD [facility] CPT-15032 Level 3 Est. Patient 11:53:38 CDT Robbie Busby MD [facility] CPT-24355 Level 4 Est. Patient 12:52:22 CDT Rober Rodríguez [facility] CPT-93542 Level 4 Est. Patient 22:55:17 CDT Robbie Busby MD [facility] CPT-36579 Level 3 Est. Patient 12:38:24 CDT Desmond Diaz DO [facility] CPT-61196 Level 4 Est. 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 CPT-87990 Level 4 Est. Patient 14:50:10 CDT Robbie Busby MD [facility] CPT-08040 Level 4 Est. Patient 23:30:43 CDT Robbie Busby MD [facility] CPT-22793 Level 4 Est. Patient 10:30:43 CDT Robbie Busby MD [facility] CPT-92514 Level 3 Est. Patient 17:08:12 CDT Alex Shaw [facility] CPT-79775 Level 4 Est. Patient 17:51:38 CDT Robbie Busby MD [facility] CPT-24652 Level 4 Est. Patient 14:00:21 CDT Robbie Busby MD [facility] CPT-77332 Level 4 Est. Patient 12:46:48 CDT Robbie Busby MD [facility] CPT-12632 Level 4 Est. Patient 13:34:33 CDT Robbie Busby MD [facility] CPT-43089 Level 4 Est. Patient 16:58:28 CDT Robbie Busby MD [facility] CPT-89609 Level 3 Est. Patient 19:36:53 CDT Alex Shaw [facility] CPT-14221 Level 3 Est. Patient 12:58:15 CDT Robbie Busby MD [facility] Procedures Code Procedure Name Date Entry Date Standard Description CPT-J1071 Depo Testosterone 200mg 14:20:43 CDT CPT-17154 Abx/Therapy Injection 14:20:43 CDT CPT-J1071 Depo Testosterone 200mg 14:17:22 CDT CPT-94599 Abx/Therapy Injection 14:17:22 CDT CPT-J1071 Depo Testosterone 200mg 09:03:53 CDT CPT-79385 Abx/Therapy Injection 09:03:53 CDT CPT-G0439 [facility] Annual Wellness Exam 16:47:44 CDT CPT-J1071 Depo Testosterone 200mg 09:06:28 CDT CPT-16832 Abx/Therapy Injection 09:06:28 CDT CPT-J1071 Depo Testosterone 200mg 08:30:01 CDT CPT-03929 Abx/Therapy Injection 08:30:01 CDT CPT-J1071 Depo Testosterone 200mg 08:24:00 CDT CPT-60256 Abx/Therapy Injection 08:24:00 CDT CPT-91901 Venipuncture Draw Fee 14:39:06 CDT CPT-48766 Ribs unilateral 2V - XRAY USE ONLY 12:10:11 CDT CPT-06474 First Vx - Ix admin for Medicare patients 16:32:53 CDT CPT-47885 Boostrix Intramuscular Suspension 5-2.5-18.5 16:32:53 CDT CPT-45106 TB Skin Test 11:42:28 CDT CPT-76128 Tdap 7yrs or > 11:42:28 CDT CPT-J0696 Rocephin 1000 mg (Ceftriaxone) 17:43:43 CURRICULUM COACH CPT-J1040 Depo Medrol 80 mg (Methyl Prednisolone Acetate) 17:43: 43 CURRICULUM COACH CPT-J1100 Decadron 8mg (Dexamethasone) 17:43:42 CURRICULUM COACH CPT-17711 Abx/Therapy Injection 17:43:42 CURRICULUM COACH CPT-35197 Abx/Therapy Injection 17:43:42 CURRICULUM COACH CPT-J1040 Depo Medrol 80 mg (Methyl Prednisolone Acetate) 09:43: 34 CURRICULUM COACH CPT-J1100 Decadron 8mg (Dexamethasone) 09:43:34 CURRICULUM COACH CPT-J0696 Rocephin 1gm Inj Solr 09:43:34 CURRICULUM COACH CPT-97801 Wound Culture - LAB USE ONLY 14:00:21 CDT CPT-I/D I/D Abscess 09:16:37 CDT CPT-22391 Venipuncture Draw Fee 15:20:23 CDT CPT-52355 Microalbumin - LAB USE ONLY 16:02:19 CDT CPT-63044 CBC - LAB USE ONLY 16:02:19 CDT CPT-56288 Venipuncture Draw Fee 16:02:19 CDT CPT-G0438 Initial Annual Wellness Exam 08:10:28 CDT CPT-00178 Venipuncture Draw Fee 13:07:17 CDT CPT-G0008 Administration of Influenza Virus Vaccine 16:09:59 CDT CPT-98589 Fluzone Quadrivalent Intramuscular Suspension 0.5 ML 16: 09:59 CDT CPT-01561 Spec Collection and Handling Fee 15:05:50 CDT
--- OUTSIDE RECORDS SUMMARY | 2018-04-18 11:20 | XMS REPORT | Clinical Summary ---
Author Author Admin, AKUA Organization [facility] Address Unknown Phone Unavailable Allergies, Adverse Reactions, [...] unspecified sites URI 465.9 Active Rober Rodríguez INSOLE RASPER Acute upper respiratory infections of unspecified site [...] tab po 3 times qd. OXYCODONE HCL 24902656459 Active Robbie Busby MD Active NITROSTAT 0.4 MG SUBL PRN NITROGLYCERIN 20087736764 No Longer Active Robbie Busby MD Active LORATADINE 10 MG TABS 1 tablet by mouth daily for congestion and allergies. LORATADINE 43547132620 No Longer Active Robbie Busby MD Active FLONASE 50 MCG/ACT SUSP 1 spray each nostril twice daily for allergies and runny nose FLUTICASONE PROPIONATE 63643455531 No Longer Active Robbie Busby MD Active FIORICET 50-300-40 MG ORAL CAPS take 1 tab po qday prn migraines. [id number]-BDSHVIVT 19766989753 No Longer Active Robbie Busby MD Active VITAMIN D3 12568 UNIT CAPS 2 CAPS PO WEEKLY CHOLECALCIFEROL 20920797857 No Longer Active Robbie Busby MD Active CYCLOBENZAPRINE HCL 10 MG TABS 1 tablet by mouth three times daily as needed for muscle spasm/pain for 10 days CYCLOBENZAPRINE HCL 17342412018 No Longer Active Robbie Busby MD Active PREDNISONE 20 MG TAB take 3 tabs daily for 3 days, 2 tabs daily for 3 days, 1 tab daily for 3 days, 1/2 tab daily for 4 days PREDNISONE 23045909398 No Longer Active Erin Garsia APRN Active CLONIDINE HCL 0.2 MG ORAL TABS 1 TAB BY MOUTH EVERY 8 HOURS 12/29 CLONIDINE HCL 35279399139 No Longer Active Erin Garsia APRN Active MECLIZINE HCL 25 MG TAB one 4 times a day as needed for dizziness MECLIZINE HCL 79974173444 No Longer Active Erin Garsia APRN Active SPIRONOLACTONE 25 MG TAB 4 tablets by mouth daily SPIRONOLACTONE 11566849751 No Longer Active Erin Garsia APRN Active LEVAQUIN 500 MG TAB 1 tablet by mouth daily for 7 days LEVOFLOXACIN 29520375773 No Longer Active Erin Garsia APRN Active BACTRIM DS 800-160 MG TAB 1 tab by mouth twice daily TRIMETHOPRIM-SULFAMETHOXAZOLE 59013805801 No Longer Active Robbie Busby MD Active HYDRALAZINE HCL 50 MG ORAL TABS TWO BY MOUTH THREE TIMES DAILY HYDRALAZINE HCL 70207120479 No Longer Active Rober Rodríguez APRN Active HYDROCODONE-ACETAMINOPHEN 5-325 MG TABS 1 tab by mouth BID prn back pain 2013 HYDROCODONE-ACETAMINOPHEN 79438405877 No Longer Active Rober Rodríguez APRN Active HYDROCHLOROTHIAZIDE TABS Take one by mouth daily HYDROCHLOROTHIAZIDE TABS 41981799216 No Longer Active Rober Rodríguez APRN Active LAMISIL 125 MG ORAL PACK 1 TAB PO DAILY TERBINAFINE HCL 07211719342 No Longer Active Jillina Franeha INSOLE RASPER Active TRILEPTAL 150 MG ORAL TABS 1 TAB PO Q HS OXCARBAZEPINE 00576630162 No Longer Active Jillina Frazell INSOLE RASPER Active BETADINE 10 % EXT SOLN 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 POVIDONE-IODINE 50629271569 No Longer Active Jillina Frazell INSOLE RASPER Active NYSTATIN 229996 UNIT/ML M/T SUSP 5mL po QID x 10 days NYSTATIN 67021076773 No Longer Active Erin Garsia APRN Active PREDNISONE 20 MG TAB 1 tablet twice daily for 2 days, then 1 tablet once daily for 2 days PREDNISONE 97795053170 No Longer Active Robbie Busby MD Active CEFDINIR 300 MG ORAL CAPS Take 1 cap po bid x 10 days CEFDINIR 11513403401 No Longer Active Robbie Busby MD Active AMLODIPINE BESYLATE 10 MG TABS 1 tablet by mouth daily AMLODIPINE BESYLATE 81783306074 Active Robbie Busby MD Active CARVEDILOL 25 MG TABS 1 & 1/2 TAB po BID CARVEDILOL 52615614505 Active Robbie Busby MD Active NEXIUM 40 MG CPDR 1 cap by mouth daily ESOMEPRAZOLE MAGNESIUM 50005678360 Active Robbie Busby MD Active PROTONIX 40 MG SOLR 1 po qday for acid reflux PANTOPRAZOLE SODIUM 92285903829 No Longer Active Gali Raida Active KEFLEX 500 MG CAP 1 po TID x 10 days CEPHALEXIN 09236731297 No Longer Active Robbie Busby MD Active TOPIRAMATE 50 MG ORAL TABS take 1 tab po BID for migraines. TOPIRAMATE 93592039668 Active Robbie Busby MD Active TEMAZEPAM 15 MG ORAL CAPS 1 TAB PO Q HS TEMAZEPAM 94274354261 Active Robbie Busby MD Active ALPRAZOLAM 2 MG ORAL TABS 1 TAB PO BID ALPRAZOLAM 47192701319 Active Robbie Busby MD Active FENOFIBRATE 145 MG TABS Take one by mouth daily FENOFIBRATE 88434136727 No Longer Active Robbie Busby MD Active SPIRONOLACTONE 50 MG TABS 1 tablet by mouth twice a day SPIRONOLACTONE 55036815297 No Longer Active Robbie Busby MD Active HYDRALAZINE HCL 25 MG TABS 1 tablet by mouth tid for hypertension HYDRALAZINE HCL 18840270166 No Longer Active Robbie Busby MD Active VIIBRYD 40 MG TABS take 1 tab po qday for depression. VILAZODONE HCL 60104354498 No Longer Active Robbie Busby MD Active TERBINAFINE HCL 250 MG TABS 1 tab po qday for foot infection 2014 TERBINAFINE HCL 66157929081 No Longer Active Robbie Busby MD Active GABAPENTIN 300 MG CAPS 1 po q hs for nerve pain GABAPENTIN 10017948703 Active Robbie Busby MD Active CHERATUSSIN AC 100-10 MG/5ML ORAL SOLN 7.5 mL PO q 4-6 hrs PRN cough GUAIFENESIN-CODEINE 23203503858 No Longer Active Robbie Busby MD Active AZITHROMYCIN 250 MG ORAL TABS 2 tablets PO today---then, 1 tablet PO daily x 4 more days (and 1 optional refill) AZITHROMYCIN 38741319438 No Longer Active Robbie Busby MD Active NORVASC 10 MG TAB 1 tablet by mouth daily AMLODIPINE BESYLATE 87276829263 No Longer Active Alex ALVAREZ Active IMDUR 60 MG TAB CR take 1 tab po qday for blood pressure ISOSORBIDE MONONITRATE Active Robbie Busby MD Active ISOSORBIDE DINITRATE 30 MG TABS Take one by mouth daily ISOSORBIDE DINITRATE 04622838156 No Longer Active Robbie Busby MD Active VIIBRYD 40 MG TABS 1 TA B PO DAILY VILAZODONE HCL 60861785378 Active Robbie Busby MD Active ZITHROMAX 250 MG TAB 2 po today, then 1 po q days 2-5 AZITHROMYCIN 68431571616 No Longer Active Robbie Busby MD Active [id number]-7 0.3 MG/24HR PTWK apply 2 patches q week for HTN CLONIDINE HCL 53620691018 Active Robbie Busby MD Active DOXAZOSIN MESYLATE 4 MG TABS Take one by mouth daily DOXAZOSIN MESYLATE 47231876571 Active Robbie Busby MD Active TOPROL XL 200 MG [id number] Take one by mouth daily METOPROLOL SUCCINATE 05044632316 Active Robbie Busby MD Active VENLAFAXINE HCL ER 150 MG [id number] Take one by mouth daily VENLAFAXINE HCL 83791181353 Active Robbie Busby MD Active LIPITOR 40 MG TABS Take one by mouth daily ATORVASTATIN CALCIUM 90876762887 Active Robbie Busby MD Active ISOSORBIDE DINITRATE 30 MG TABS Take one by mouth daily ISOSORBIDE DINITRATE 30 MG TABS 442234 ISOSORBIDE DINITRATE Inactive NORVASC 10 MG TAB 1 tablet by mouth daily NORVASC 10 MG TAB 721178 AMLODIPINE BESYLATE Inactive AZITHROMYCIN 250 MG ORAL TABS 2 tablets PO today---then, 1 tablet PO daily x 4 more days (and 1 optional refill) AZITHROMYCIN 250 MG ORAL TABS 6770811 AZITHROMYCIN Inactive CHERATUSSIN AC 100-10 MG/5ML ORAL SOLN 7.5 mL PO q 4-6 hrs PRN cough CHERATUSSIN AC 100-10 MG/5ML ORAL SOLN 367417 GUAIFENESIN- CODEINE Inactive VIIBRYD 40 MG TABS take 1 tab po qday for depression. VIIBRYD 40 MG TABS VILAZODONE HCL Inactive HYDRALAZINE HCL 25 MG TABS 1 tablet by mouth tid for hypertension HYDRALAZINE HCL 25 MG TABS 060231 HYDRALAZINE HCL Inactive SPIRONOLACTONE 50 MG TABS 1 tablet by mouth twice a day SPIRONOLACTONE 50 MG TABS 525304 SPIRONOLACTONE Inactive FENOFIBRATE 145 MG TABS Take one by mouth daily FENOFIBRATE 145 MG TABS 908046 FENOFIBRATE Inactive PROTONIX 40 MG SOLR 1 po qday for acid reflux PROTONIX 40 MG SOLR 292589 PANTOPRAZOLE SODIUM Inactive CEFDINIR 300 MG ORAL CAPS Take 1 cap po bid x 10 days CEFDINIR 300 MG ORAL CAPS 834806 CEFDINIR Inactive PREDNISONE 20 MG TAB 1 tablet twice daily for 2 days, then 1 tablet once daily for 2 days PREDNISONE 20 MG TAB 586838 PREDNISONE Inactive NYSTATIN 249528 UNIT/ML M/T SUSP 5mL po QID x 10 days NYSTATIN 464241 UNIT/ML M/T SUSP 053293 NYSTATIN Inactive BETADINE 10 % EXT SOLN 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 BETADINE 10 % EXT SOLN 1902913 POVIDONE-IODINE Inactive TRILEPTAL 150 MG ORAL TABS 1 TAB PO Q HS TRILEPTAL 150 MG ORAL TABS 457085 OXCARBAZEPINE Inactive LAMISIL 125 MG ORAL PACK 1 TAB PO DAILY LAMISIL 125 MG ORAL PACK TERBINAFINE HCL Inactive HYDROCHLOROTHIAZIDE TABS Take one by mouth daily HYDROCHLOROTHIAZIDE TABS HYDROCHLOROTHIAZIDE TABS Inactive HYDROCODONE-ACETAMINOPHEN 5-325 MG TABS 1 tab by mouth BID prn back pain 2013 HYDROCODONE-ACETAMINOPHEN 5-325 MG TABS 276827 HYDROCODONE -ACETAMINOPHEN Inactive HYDRALAZINE HCL 50 MG ORAL TABS TWO BY MOUTH THREE TIMES DAILY HYDRALAZINE HCL 50 MG ORAL TABS 692592 HYDRALAZINE HCL Inactive LEVAQUIN 500 MG TAB 1 tablet by mouth daily for 7 days LEVAQUIN 500 MG TAB 898454 LEVOFLOXACIN Inactive SPIRONOLACTONE 25 MG TAB 4 tablets by mouth daily SPIRONOLACTONE 25 MG TAB 213708 SPIRONOLACTONE Inactive MECLIZINE HCL 25 MG TAB one 4 times a day as needed for dizziness MECLIZINE HCL 25 MG TAB 566213 MECLIZINE HCL Inactive CLONIDINE HCL 0.2 MG ORAL TABS 1 TAB BY MOUTH EVERY 8 HOURS 12/29 CLONIDINE HCL 0.2 MG ORAL TABS 145513 CLONIDINE HCL Inactive CYCLOBENZAPRINE HCL 10 MG TABS 1 tablet by mouth three times daily as needed for muscle spasm/pain for 10 days CYCLOBENZAPRINE HCL 10 MG TABS 591947 CYCLOBENZAPRINE HCL Inactive VITAMIN D3 56398 UNIT CAPS 2 CAPS PO WEEKLY VITAMIN D3 24584 UNIT CAPS CHOLECALCIFEROL Inactive FIORICET 50-300-40 MG ORAL CAPS take 1 tab po qday prn migraines. FIORICET 50-300-40 MG ORAL CAPS 734361 [id number] Inactive FLONASE 50 MCG/ACT SUSP 1 spray each nostril twice daily for allergies and runny nose FLONASE 50 MCG/ACT SUSP 6898989 FLUTICASONE PROPIONATE Inactive LORATADINE 10 MG TABS 1 tablet by mouth daily for congestion and allergies. LORATADINE 10 MG TABS 187370 LORATADINE Inactive NITROSTAT 0.4 MG SUBL PRN NITROSTAT 0.4 MG SUBL 295487 NITROGLYCERIN Inactive ZITHROMAX 250 MG TAB 2 po today, then 1 po q days 2-5 ZITHROMAX 250 MG TAB 8887421 AZITHROMYCIN Inactive TERBINAFINE HCL 250 MG TABS 1 tab po qday for foot infection 2014 TERBINAFINE HCL 250 MG TABS 390551 TERBINAFINE HCL Inactive KEFLEX 500 MG CAP 1 po TID x 10 days KEFLEX 500 MG CAP 677926 CEPHALEXIN Inactive BACTRIM DS 800-160 MG TAB 1 tab by mouth twice daily BACTRIM DS 800-160 MG TAB 754642 TRIMETHOPRIM-SULFAMETHOXAZOLE Inactive PREDNISONE 20 MG TAB take 3 tabs daily for 3 days, 2 tabs daily for 3 days, 1 tab daily for 3 days, 1/2 tab daily for 4 days PREDNISONE 20 MG TAB 642073 PREDNISONE Inactive Advance Directives Directive Description Start [...] % 11.0-15.0 platelet count 185 THOUSAND/UL 10*3/mm3 712-105 9899/04/14 mean platelet volume 10.9 fL 7.5-12.5 Lab Report: LIPID PANEL, TSH/899, T4, FREE/866 - Chemistry cholesterol, serum 220 mg/dL 519-947 0718/04/14 HDL cholesterol, serum 30 mg/dL > OR=40 [...] mg/dL Encounters Code Encounter Date Provider Facility CPT-73922 Level 3 Est. Patient 16:07:10 CDT Robbie Busby MD [facility] CPT-49344 Level 4 Est. Patient 11:56:16 CDT Erin Garsia [facility] CPT-35041 Level 3 Est. Patient 17:48:02 CDT Robbie Busby MD [facility] CPT-06343 Level 4 Est. Patient 12:00:49 SURFACE BOSS Rober Rodríguez [facility] CPT-56993 Level 3 Est. Patient 09:16:37 CDT Robbie Busby MD [facility] CPT-97090 Level 3 Est. Patient 19:38:43 CDT Robbie Busby MD [facility] CPT-97417 Level 3 Est. Patient 11:53:38 CDT Robbie Busby MD [facility] CPT-74680 Level 4 Est. Patient 12:52:22 CDT Rober Rodríguez [facility] CPT-68746 Level 4 Est. Patient 22:55:17 CDT Robbie Busby MD [facility] CPT-22854 Level 3 Est. Patient 12:38:24 CDT Desmond Diaz DO [facility] CPT-32860 Level 4 Est. Patient 11:25:03 SURFACE BOSS Robbie Busby MD [facility] CPT-42463 Level 4 Est. Patient 14:50:10 CDT Robbie [facility] CPT-34715 Level 4 Est. Patient 23:30:43 CDT Robbie Bus[facility] CPT-97337 Level 4 Est. Patient 10:30:43 CDT Robbie Busby [facility] CPT-92877 Level 3 Est. Patient 17:08:12 CDT Alex Shaw [facility] CPT-73240 Level 4 Est. Patient 17:51:38 CDT Robbie Busby MD [facility] CPT-22356 Level 4 Est. Patient 14:00:21 CDT Robbei Busby MD [facility] CPT-96431 Level 4 Est. Patient 12:46:48 CDT Robbie Busby [facility] CPT-43372 Level 4 Est. Patient 13:34:33 CDT Robbie Busby [facility] CPT-00346 Level 4 Est. Patient 16:58:28 CDT Robbie Busby [facility] CPT-95783 Level 3 Est. Patient 19:36:53 CDT Alex Shaw [facility] CPT-60718 Level 3 Est. Patient 12:58:15 CDT Robbie Busby [facility] Procedures Code Procedure Name Date Entry Date Standard Description CPT-94315 Ribs unilateral 2V - XRAY USE ONLY 12:10:11 CDT CPT-74412 First Vx - Ix admin for Medicare patients 16:32:53 CDT CPT-02021 Boostrix Intramuscular Suspension 5-2.5-18.5 16:32:53 CDT CPT-18576 TB Skin Test 11:42:28 CDT CPT-15611 Tdap 7yrs or > 11:42:28 CDT CPT-J0696 Rocephin 1000 mg (Ceftriaxone) 17:43:43 SURFACE BOSS CPT-J1040 Depo Medrol 80 mg (Methyl Prednisolone Acetate) 17:43: 43 SURFACE BOSS CPT-J1100 Decadron 8mg (Dexamethasone) 17:43:42 SURFACE BOSS CPT-74200 Abx/Therapy Injection 17:43:42 SURFACE BOSS CPT-87989 Abx/Therapy Injection 17:43:42 SURFACE BOSS CPT-J1040 Depo Medrol 80 mg (Methyl Prednisolone Acetate) 09:43: 34 SURFACE BOSS CPT-J1100 Decadron 8mg (Dexamethasone) 09:43:34 SURFACE BOSS CPT-J0696 Rocephin 1gm Inj Solr 09:43:34 SURFACE BOSS CPT-00072 Wound Culture - LAB USE ONLY 14:00:21 CDT CPT-I/D I/D Abscess 09:16:37 CDT CPT-54623 Venipuncture Draw Fee 15:20:23 CDT CPT-66314 Microalbumin - LAB USE ONLY 16:02:19 CDT CPT-17903 CBC - LAB USE ONLY 16:02:19 CDT CPT-05470 Venipuncture Draw Fee 16:02:19 CDT CPT-G0438 Initial Annual Wellness Exam 08:10:28 CDT CPT-41150 Venipuncture Draw Fee 13:07:17 CDT CPT-G0008 Administration of Influenza Virus Vaccine 16:09:59 CDT CPT-50779 Fluzone Quadrivalent Intramuscular Suspension 0.5 ML 16: 09:59 CDT CPT-80362 Spec Collection and Handling Fee 15:05:50 CDT
--- OUTSIDE RECORDS SUMMARY | 2018-04-18 11:20 | XMS REPORT | Clinical Summary ---
Author Author Admin, AKUA Organization [facility] Address Unknown Phone Unavailable Allergies, Adverse Reactions, [...] acute 466.0 Active Alex ALVAREZ Acute bronchitis Medication List Medication Instructions Start Date Stop Date Generic Name ND Status Provider Patient Instruction CLONIDINE HCL 0.2 MG ORAL TABS 1 TAB BY MOUTH EVERY 8 HOURS CLONIDINE HCL 70642519763 Active Robbie Busby MD Active CHERATUSSIN AC 100-10 MG/5ML ORAL SOLN 7.5 mL PO q 4-6 hrs PRN cough GUAIFENESIN-CODEINE 47497989381 Active Alex ALVAREZ Active AZITHROMYCIN 250 MG ORAL TABS 2 tablets PO today---then, 1 tablet PO daily x 4 more days (and 1 optional refill) AZITHROMYCIN 24174877867 Active Alex ALVAREZ Active HYDROCHLOROTHIAZIDE TABS Take one by mouth daily HYDROCHLOROTHIAZIDE TABS 99069178590 Active Alex ALVAREZ Active NORVASC 10 MG TAB 1 tablet by mouth daily AMLODIPINE BESYLATE 14997785528 No Longer Active Alex ALVAREZ Active PROTONIX 40 MG SOLR 1 po qday for acid reflux PANTOPRAZOLE SODIUM 74432389740 Active Robbie Busby MD Active IMDUR 60 MG TAB CR take 1 tab po qday for blood pressure ISOSORBIDE MONONITRATE Active Robbie Busby MD Active ISOSORBIDE DINITRATE 30 MG TABS Take one by mouth daily ISOSORBIDE DINITRATE 07401247181 No Longer Active Robbie Busby MD Active VIIBRYD 40 MG TABS take 1 tab po qday for depression. VILAZODONE HCL 84202870877 Active Robbie Busby MD Active VIIBRYD 40 MG TABS 1 TA B PO DAILY VILAZODONE HCL 44751884505 Active Robbie Busby MD Active LORATADINE 10 MG TABS 1 tablet by mouth daily for congestion and allergies. LORATADINE 97947480827 Active Robbie Busby MD Active ZITHROMAX 250 MG TAB 2 po today, then 1 po q days 2-5 AZITHROMYCIN 92763592516 No Longer Active Robbie Busby MD Active HYDROCODONE-ACETAMINOPHEN 5-325 MG TABS 1 tab by mouth BID prn back pain 2013 HYDROCODONE-ACETAMINOPHEN 92158503665 Active Robbie Busby MD Active HYDRALAZINE HCL 50 MG TABS take 1 tab po QID for high blood pressure HYDRALAZINE HCL 63775724426 Active Robbie Busby MD Active [id number]-4 0.3 MG/24HR PTWK apply 2 patches q week for HTN CLONIDINE HCL 41738183022 Active Robbie Busby MD Active FENOFIBRATE 145 MG TABS Take one by mouth daily FENOFIBRATE 02869314605 Active Robbie Busby MD Active NITROSTAT 0.4 MG SUBL PRN NITROGLYCERIN 91229801676 Active Robbie Busby MD Active DOXAZOSIN MESYLATE 4 MG TABS Take one by mouth daily DOXAZOSIN MESYLATE 07663245973 Active Robbie Busby MD Active HYDRALAZINE HCL 25 MG TABS 1 tablet by mouth tid for hypertension HYDRALAZINE HCL 45556862891 Active Robbie Busby MD Active TOPROL XL 200 MG [id number]-TWA Take one by mouth daily METOPROLOL SUCCINATE 47431036832 Active Robbie Busby MD Active SPIRONOLACTONE 50 MG TABS 1 tablet by mouth twice a day SPIRONOLACTONE 12193605940 Active Robbie Busby MD Active VENLAFAXINE HCL ER 150 MG [id number]-JNM Take one by mouth daily VENLAFAXINE HCL 76868672382 Active Robbie Busby MD Active LIPITOR 40 MG TABS Take one by mouth daily ATORVASTATIN CALCIUM 32023524959 Active Robbie Busby MD Active ISOSORBIDE DINITRATE 30 MG TABS Take one by mouth daily ISOSORBIDE DINITRATE 30 MG TABS 674289 ISOSORBIDE DINITRATE Inactive NORVASC 10 MG TAB 1 tablet by mouth daily NORVASC 10 MG TAB 321636 AMLODIPINE BESYLATE Inactive ZITHROMAX 250 MG TAB 2 po today, then 1 po q days 2-5 ZITHROMAX 250 MG TAB 7580837 AZITHROMYCIN Inactive Vital Signs Date Name Value [...] mg/dL Chart Maintenance: Outside labs entered on [facility] - Hematology leukocyte count, blood 8.9 10*3/mm3 hemoglobin, blood 14.0 g/dL platelet count 285 10*3/mm3 Lab Report: Basic Metabolic Panel, UADIP W/MICRO, AUTO - Chemistry protein, total urine random 2+ mg/dL Negative sodium, serum 144 mmol/L 819-245 6117/07/07 potassium, serum 3.9 mmol/L 3.5-5.2 chloride, serum [...] Panel - Chemistry sodium, serum 141 mmol/L 566-023 3739/12/05 potassium, serum 4.0 mmol/L 3.5-5.2 chloride, serum [...] mg/dL Encounters Code Encounter Date Provider Facility CPT-31631 Level 3 Est. Patient 17:08:12 CDT Alex ALVAREZ [facility] CPT-91139 Level 4 Est. Patient 17:51:38 CDT Robbie Busby MD [facility] CPT-34255 Level 4 Est. Patient 14:00:21 CDT Robbie Busby MD [facility] CPT-55792 Level 4 Est. Patient 12:46:48 CDT Robbie Busby MD [facility] CPT-70660 Level 4 Est. Patient 13:34:33 CDT Robbie Busby MD [facility] CPT-26590 Level 4 Est. Patient 16:58:28 CDT Robbie Busby MD [facility] CPT-50783 Level 3 Est. Patient 19:36:53 CDT Alex ALVAREZ [facility] CPT-49457 Level 3 Est. Patient 12:58:15 CDT Robbie Busby MD [facility] Procedures Code Procedure Name Date Entry Date Standard Description CPT-G0008 Administration of Influenza Virus Vaccine 16:09:59 CDT CPT-34570 Fluzone Quadrivalent Intramuscular Suspension 0.5 ML 16: 09:59 CDT CPT-86884 Spec Collection and Handling Fee 15:05:50 CDT
--- OUTSIDE RECORDS SUMMARY | 2018-04-18 11:22 | XMS REPORT | Clinical Summary ---
Author Author Admin, [facility] Organization [facility] Address Unknown Phone Unavailable Allergies, Adverse [...] 724.5 Active Erin Garsia APRN Backache, unspecified Medication List Medication Instructions Start Date Stop Date Generic Name NDC Status Provider Patient Instruction CYCLOBENZAPRINE HCL 10 MG TABS 1 tablet by mouth three times daily as needed for muscle spasm/pain for 10 days CYCLOBENZAPRINE HCL 52966583597 Active Erin Garsia APRN Active PREDNISONE 20 MG TAB take 3 tabs daily for 3 days, 2 tabs daily for 3 days, 1 tab daily for 3 days, 1/2 tab daily for 4 days PREDNISONE 17286124533 No Longer Active Erin Garsia APRN Active CLONIDINE HCL 0.2 MG ORAL TABS 1 TAB BY MOUTH EVERY 8 HOURS 12/29 CLONIDINE HCL 23666512457 No Longer Active Erin Garsia APRN Active MECLIZINE HCL 25 MG TAB one 4 times a day as needed for dizziness MECLIZINE HCL 33066537082 No Longer Active Erin Garsia APRN Active SPIRONOLACTONE 25 MG TAB 4 tablets by mouth daily SPIRONOLACTONE 16248114743 No Longer Active Erin Garsia APRN Active LEVAQUIN 500 MG TAB 1 tablet by mouth daily for 7 days LEVOFLOXACIN 19140564025 No Longer Active Erin Garsia APRN Active BACTRIM DS 800-160 MG TAB 1 tab by mouth twice daily TRIMETHOPRIM-SULFAMETHOXAZOLE 31141921632 No Longer Active Robbie Busby MD Active HYDRALAZINE HCL 50 MG ORAL TABS TWO BY MOUTH THREE TIMES DAILY HYDRALAZINE HCL 73443681514 No Longer Active Jillina Frazell ANIMAL RESEARCHER Active HYDROCODONE-ACETAMINOPHEN 5-325 MG TABS 1 tab by mouth BID prn back pain 2013 HYDROCODONE-ACETAMINOPHEN 43441214563 No Longer Active Jillina Frazell ANIMAL RESEARCHER Active HYDROCHLOROTHIAZIDE TABS Take one by mouth daily HYDROCHLOROTHIAZIDE TABS 80796236012 No Longer Active Jillina Frazell ANIMAL RESEARCHER Active LAMISIL 125 MG ORAL PACK 1 TAB PO DAILY TERBINAFINE HCL 39083081471 No Longer Active Jillina Frazell ANIMAL RESEARCHER Active TRILEPTAL 150 MG ORAL TABS 1 TAB PO Q HS OXCARBAZEPINE 69910908236 No Longer Active Jillina Frazell ANIMAL RESEARCHER Active BETADINE 10 % EXT SOLN 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 POVIDONE-IODINE 60268695454 No Longer Active Andrellina Anne GONZALEZN Active NYSTATIN 987307 UNIT/ML M/T SUSP 5mL po QID x 10 days NYSTATIN 79306909905 No Longer Active Erin Garsia APRN Active PREDNISONE 20 MG TAB 1 tablet twice daily for 2 days, then 1 tablet once daily for 2 days PREDNISONE 76664958274 No Longer Active Robbie Busby MD Active CEFDINIR 300 MG ORAL CAPS Take 1 cap po bid x 10 days CEFDINIR 50308805908 No Longer Active Robbie Busby MD Active AMLODIPINE BESYLATE 10 MG TABS 1 tablet by mouth daily AMLODIPINE BESYLATE 51509966216 Active Robbie Busby MD Active CARVEDILOL 25 MG TABS 1 & 1/2 TAB po BID CARVEDILOL 44154053100 Active Erin Garsia APRN Active VITAMIN D3 17066 UNIT CAPS 2 CAPS PO WEEKLY CHOLECALCIFEROL 34274837544 Active Erin Garsia APRN Active NEXIUM 40 MG CPDR 1 cap by mouth daily ESOMEPRAZOLE MAGNESIUM 30561373706 Active Robbie Busby MD Active PROTONIX 40 MG SOLR 1 po qday for acid reflux PANTOPRAZOLE SODIUM 91904170704 No Longer Active Gali Negro Active KEFLEX 500 MG CAP 1 po TID x 10 days CEPHALEXIN 71149539541 No Longer Active Robbie Busby MD Active FIORICET 50-300-40 MG ORAL CAPS take 1 tab po qday prn migraines. [id number] 70066727306 Active Robbie Busby MD Active TOPIRAMATE 50 MG ORAL TABS take 1 tab po BID for migraines. TOPIRAMATE 26488173678 Active Robbie Busby MD Active TEMAZEPAM 15 MG ORAL CAPS 1 TAB PO Q HS TEMAZEPAM 45099360548 Active Robbie Busby MD Active ALPRAZOLAM 2 MG ORAL TABS 1 TAB PO BID ALPRAZOLAM 52053754768 Active Robbie Busby MD Active FENOFIBRATE 145 MG TABS Take one by mouth daily FENOFIBRATE 64779005336 No Longer Active Robbie Busby MD Active SPIRONOLACTONE 50 MG TABS 1 tablet by mouth twice a day SPIRONOLACTONE 35818004381 No Longer Active Robbie Busby MD Active HYDRALAZINE HCL 25 MG TABS 1 tablet by mouth tid for hypertension HYDRALAZINE HCL 07419344678 No Longer Active Robbie Busby MD Active VIIBRYD 40 MG TABS take 1 tab po qday for depression. VILAZODONE HCL 05764830655 No Longer Active Robbie Busby MD Active TERBINAFINE HCL 250 MG TABS 1 tab po qday for foot infection 2014 TERBINAFINE HCL 49745430593 No Longer Active Robbie Busby MD Active GABAPENTIN 300 MG CAPS 1 po q hs for nerve pain GABAPENTIN 13074467972 Active Robbie Busby MD Active FLONASE 50 MCG/ACT SUSP 1 spray each nostril twice daily for allergies and runny nose FLUTICASONE PROPIONATE 75281074736 Active Robbie Busby MD Active CHERATUSSIN AC 100-10 MG/5ML ORAL SOLN 7.5 mL PO q 4-6 hrs PRN cough GUAIFENESIN-CODEINE 27655181138 No Longer Active Robbie Busby MD Active AZITHROMYCIN 250 MG ORAL TABS 2 tablets PO today---then, 1 tablet PO daily x 4 more days (and 1 optional refill) AZITHROMYCIN 50607511400 No Longer Active Robbie Busby MD Active NORVASC 10 MG TAB 1 tablet by mouth daily AMLODIPINE BESYLATE 25928558969 No Longer Active Alex ALVAREZ Active IMDUR 60 MG TAB CR take 1 tab po qday for blood pressure ISOSORBIDE MONONITRATE Active Robbie Busby MD Active ISOSORBIDE DINITRATE 30 MG TABS Take one by mouth daily ISOSORBIDE DINITRATE 92507807974 No Longer Active Robbie Busby MD Active VIIBRYD 40 MG TABS 1 TA B PO DAILY VILAZODONE HCL 79912852707 Active Robbie Busby MD Active LORATADINE 10 MG TABS 1 tablet by mouth daily for congestion and allergies. LORATADINE 61502894933 Active Robbie Busby MD Active ZITHROMAX 250 MG TAB 2 po today, then 1 po q days 2-5 AZITHROMYCIN 71775192326 No Longer Active Robbie Busby MD Active [id number] 0.3 MG/24HR PTWK apply 2 patches q week for HTN CLONIDINE HCL 32400017050 Active Robbie Busby MD Active NITROSTAT 0.4 MG SUBL PRN NITROGLYCERIN 89290845053 Active Robbie Busby MD Active DOXAZOSIN MESYLATE 4 MG TABS Take one by mouth daily DOXAZOSIN MESYLATE 26201882496 Active Erinmarianne Garsia ANIMAL RESEARCHER Active TOPROL XL 200 MG [id number] Take one by mouth daily METOPROLOL SUCCINATE 25206624524 Active Robbie Busby MD Active VENLAFAXINE HCL ER 150 MG CI00N-YOU Take one by mouth daily VENLAFAXINE HCL 99217625472 Active Robbie Busby MD Active LIPITOR 40 MG TABS Take one by mouth daily ATORVASTATIN CALCIUM 37418320100 Active Robbie Busby MD Active ISOSORBIDE DINITRATE 30 MG TABS Take one by mouth daily ISOSORBIDE DINITRATE 30 MG TABS 926477 ISOSORBIDE DINITRATE Inactive NORVASC 10 MG TAB 1 tablet by mouth daily NORVASC 10 MG TAB 693166 AMLODIPINE BESYLATE Inactive AZITHROMYCIN 250 MG ORAL TABS 2 tablets PO today---then, 1 tablet PO daily x 4 more days (and 1 optional refill) AZITHROMYCIN 250 MG ORAL TABS 9617554 AZITHROMYCIN Inactive CHERATUSSIN AC 100-10 MG/5ML ORAL SOLN 7.5 mL PO q 4-6 hrs PRN cough CHERATUSSIN AC 100-10 MG/5ML ORAL SOLN 709850 GUAIFENESIN- CODEINE Inactive VIIBRYD 40 MG TABS take 1 tab po qday for depression. VIIBRYD 40 MG TABS VILAZODONE HCL Inactive HYDRALAZINE HCL 25 MG TABS 1 tablet by mouth tid for hypertension HYDRALAZINE HCL 25 MG TABS 202850 HYDRALAZINE HCL Inactive SPIRONOLACTONE 50 MG TABS 1 tablet by mouth twice a day SPIRONOLACTONE 50 MG TABS 490711 SPIRONOLACTONE Inactive FENOFIBRATE 145 MG TABS Take one by mouth daily FENOFIBRATE 145 MG TABS 004278 FENOFIBRATE Inactive PROTONIX 40 MG SOLR 1 po qday for acid reflux PROTONIX 40 MG SOLR 732349 PANTOPRAZOLE SODIUM Inactive CEFDINIR 300 MG ORAL CAPS Take 1 cap po bid x 10 days CEFDINIR 300 MG ORAL CAPS 539347 CEFDINIR Inactive PREDNISONE 20 MG TAB 1 tablet twice daily for 2 days, then 1 tablet once daily for 2 days PREDNISONE 20 MG TAB 581196 PREDNISONE Inactive NYSTATIN 394554 UNIT/ML M/T SUSP 5mL po QID x 10 days NYSTATIN 402134 UNIT/ML M/T SUSP 035306 NYSTATIN Inactive BETADINE 10 % EXT SOLN 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 BETADINE 10 % EXT SOLN 6896455 POVIDONE-IODINE Inactive TRILEPTAL 150 MG ORAL TABS 1 TAB PO Q HS TRILEPTAL 150 MG ORAL TABS 377469 OXCARBAZEPINE Inactive LAMISIL 125 MG ORAL PACK 1 TAB PO DAILY LAMISIL 125 MG ORAL PACK TERBINAFINE HCL Inactive HYDROCHLOROTHIAZIDE TABS Take one by mouth daily HYDROCHLOROTHIAZIDE TABS HYDROCHLOROTHIAZIDE TABS Inactive HYDROCODONE-ACETAMINOPHEN 5-325 MG TABS 1 tab by mouth BID prn back pain 2013 HYDROCODONE-ACETAMINOPHEN 5-325 MG TABS 760147 HYDROCODONE -ACETAMINOPHEN Inactive HYDRALAZINE HCL 50 MG ORAL TABS TWO BY MOUTH THREE TIMES DAILY HYDRALAZINE HCL 50 MG ORAL TABS 014648 HYDRALAZINE HCL Inactive LEVAQUIN 500 MG TAB 1 tablet by mouth daily for 7 days LEVAQUIN 500 MG TAB 004945 LEVOFLOXACIN Inactive SPIRONOLACTONE 25 MG TAB 4 tablets by mouth daily SPIRONOLACTONE 25 MG TAB 239652 SPIRONOLACTONE Inactive MECLIZINE HCL 25 MG TAB one 4 times a day as needed for dizziness MECLIZINE HCL 25 MG TAB 636517 MECLIZINE HCL Inactive CLONIDINE HCL 0.2 MG ORAL TABS 1 TAB BY MOUTH EVERY 8 HOURS 12/29 CLONIDINE HCL 0.2 MG ORAL TABS 669277 CLONIDINE HCL Inactive ZITHROMAX 250 MG TAB 2 po today, then 1 po q days 2-5 ZITHROMAX 250 MG TAB 1662994 AZITHROMYCIN Inactive TERBINAFINE HCL 250 MG TABS 1 tab po qday for foot infection 2014 TERBINAFINE HCL 250 MG TABS 454724 TERBINAFINE HCL Inactive KEFLEX 500 MG CAP 1 po TID x 10 days KEFLEX 500 MG CAP 472483 CEPHALEXIN Inactive BACTRIM DS 800-160 MG TAB 1 tab by mouth twice daily BACTRIM DS 800-160 MG TAB 825975 TRIMETHOPRIM-SULFAMETHOXAZOLE Inactive PREDNISONE 20 MG TAB take 3 tabs daily for 3 days, 2 tabs daily for 3 days, 1 tab daily for 3 days, 1/2 tab daily for 4 days PREDNISONE 20 MG TAB 563083 PREDNISONE Inactive Advance Directives Directive Description Start [...] % 11.0-15.0 platelet count 185 THOUSAND/UL 10*3/mm3 406-588 0863/04/14 mean platelet volume 10.9 fL 7.5-12.5 Lab Report: HEPATITIS B SAB/Immune Status, RUBELLA IGG AB(Immune Status) - Serology rubella antibody, serum, IgG 2.06 Lab Report: LIPID PANEL, TSH/899, T4, FREE/866 - Chemistry cholesterol, serum 220 mg/dL 771-023 1229/04/14 HDL cholesterol, serum 30 mg/dL > OR=40 triglyceride, serum, fasting 466 mg/dL <150 LDL cholesterol, serum SEE NOTE mg/dL (calc) mg/dL <130 cholesterol/HDL ratio, serum 7.3 (calc) < OR=5.0 Lab Report: MICROALB/CREAT W/RATIO - Chemistry albumin/creatinine ratio, urine < 30 mg/g mg/g{creat} 0-29 Lab Report: MICROALB/CREAT W/RATIO - Lab microalbumin, urine 80 0-19 Lab Report: VITAMIN D, 25-HYDROXY/18104 - Chemistry vitamin D 25-hydroxy, serum 23 ng/mL 30-100 Encounters Code Encounter Date Provider Facility CPT-07946 Level 4 Est. Patient 12:00:49 PHOTOGRAMMETRIC ENGINEER Rober Rodríguez [facility] CPT-94340 Level 3 Est. Patient 09:16:37 CDT Robbie Busby MD [facility] CPT-37744 Level 3 Est. Patient 19:38:43 CDT Robbie Busby MD [facility] CPT-78963 Level 3 Est. Patient 11:53:38 CDT Robbie Busby MD [facility] CPT-89862 Level 4 Est. Patient 12:52:22 CDT Rober Rodríguez [facility] CPT-03135 Level 4 Est. Patient 22:55:17 CDT Robbie Busby MD [facility] CPT-52651 Level 3 Est. Patient 12:38:24 CDT Desmond Diaz DO [facility] CPT-17565 Level 4 Est. Patient 11:25:03 PHOTOGRAMMETRIC ENGINEER Robbie Busby MD [facility] CPT-45903 Level 4 Est. Patient 14:50:10 CDT Robbie Busby MD [facility] CPT-50215 Level 4 Est. Patient 23:30:43 CDT Robbie Busby MD [facility] CPT-04237 Level 4 Est. Patient 10:30:43 CDT Robbie Busby MD [facility] CPT-47592 Level 3 Est. Patient 17:08:12 CDT Alex ALVAREZ [facility] CPT-58437 Level 4 Est. Patient 17:51:38 CDT Robbie Busby MD [facility] CPT-75410 Level 4 Est. Patient 14:00:21 CDT Robbie Busby MD [facility] CPT-39990 Level 4 Est. Patient 12:46:48 CDT Robbie Busby MD [facility] CPT-82137 Level 4 Est. Patient 13:34:33 CDT Robbie Busby MD [facility] CPT-03723 Level 4 Est. Patient 16:58:28 CDT Robbie Busby MD [facility] CPT-71290 Level 3 Est. Patient 19:36:53 CDT Alex Shaw [facility] CPT-27076 Level 3 Est. Patient 12:58:15 CDT Robbie Busby MD [facility] Procedures Code Procedure Name Date Entry Date Standard Description CPT-J0696 Rocephin 1000 mg (Ceftriaxone) 17:43:43 PHOTOGRAMMETRIC ENGINEER CPT-J1040 Depo Medrol 80 mg (Methyl Prednisolone Acetate) 17:43: 43 PHOTOGRAMMETRIC ENGINEER CPT-J1100 Decadron 8mg (Dexamethasone) 17:43:42 PHOTOGRAMMETRIC ENGINEER CPT-86127 Abx/Therapy Injection 17:43:42 PHOTOGRAMMETRIC ENGINEER CPT-18532 Abx/Therapy Injection 17:43:42 PHOTOGRAMMETRIC ENGINEER CPT-J1040 Depo Medrol 80 mg (Methyl Prednisolone Acetate) 09:43: 34 PHOTOGRAMMETRIC ENGINEER CPT-J1100 Decadron 8mg (Dexamethasone) 09:43:34 PHOTOGRAMMETRIC ENGINEER CPT-J0696 Rocephin 1gm Inj Solr 09:43:34 PHOTOGRAMMETRIC ENGINEER CPT-52316 Wound Culture - LAB USE ONLY 14:00:21 CDT CPT-I/D I/D Abscess 09:16:37 CDT CPT-34507 Venipuncture Draw Fee 15:20:23 CDT CPT-89580 Microalbumin - LAB USE ONLY 16:02:19 CDT CPT-29021 CBC - LAB USE ONLY 16:02:19 CDT CPT-31160 Venipuncture Draw Fee 16:02:19 CDT CPT-G0438 Initial Annual Wellness Exam 08:10:28 CDT CPT-19775 Venipuncture Draw Fee 13:07:17 CDT CPT-G0008 Administration of Influenza Virus Vaccine 16:09:59 CDT CPT-30506 Fluzone Quadrivalent Intramuscular Suspension 0.5 ML 16: 09:59 CDT CPT-03647 Spec Collection and Handling Fee 15:05:50 CDT
--- OUTSIDE RECORDS SUMMARY | 2018-04-18 11:22 | XMS REPORT | Clinical Summary ---
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 Desmond Diaz DO Other malignant secondary hypertension Tachycardia 785.0 Active Rober Rodríguez [employer] Tachycardia, unspecified Insect bite, infected 919.5 Resolved Desmond Diaz DO Insect bite, nonvenomous, of other, multiple, and unspecified sites, infected Abscess, skin 682.9 Resolved Desmond Diaz DO Cellulitis and abscess of unspecified sites URI 465.9 Resolved Desmond Diaz DO Acute upper respiratory infections of unspecified site Hypertension 401.9 Active Rober Rodríguez [employer] Unspecified essential hypertension Sinusitis - acute 461.9 [...] Hypogonadism, low testosterone 257.2 Active Erin Mai [employer] Other testicular hypofunction Low back pain, chronic [...] 37.0-37.9, adult Sinusitis ICD-461.9 Inactive Emily Atwood [employer] 2017 Low back pain, acute ICD-724.2 Inactive Emily Atwood [employer] Low back pain, chronic ICD-724.2 Inactive Emily Atwood [employer] Bronchitis, acute ICD-466.0 Inactive Emily Atwood [employer] Onychomycosis, toenails ICD-110.1 Inactive Emiyl Atwood [employer] Dizziness ICD-780.4 Inactive Emily Atwood [employer] 2017 Folliculitis ICD-704.8 Inactive Emily Atwood [employer] Pharyngitis-Acute ICD-462 Inactive Emily Atwood [employer] Fatigue ICD-780.79 Inactive Emily Atwood [employer] 09/20 Hypertension, secondary, malignant ICD-405.09 Inactive Emily Atwood [employer] Insect bite, infected ICD-919.5 Inactive Emily Atwood [employer] Abscess, skin ICD-682.9 Inactive Emily Atwood [employer] URI ICD-465.9 Inactive Emily Atwood [employer] Sinusitis - acute ICD-461.9 Inactive Emily Atwood [employer] Acute confusion ICD-293.0 Inactive Emily Atwood [employer] Headache ICD-784.0 Inactive Emily Rai CISSE 09/20 Back pain ICD-724.5 Inactive Emily Atwood [employer] 2017 Rib pain, right sided ICD-786.50 Inactive [...] blood pressure and rapid pulse METOPROLOL SUCCINATE 97124334078 Active Robbie Busby MD Active THURNUKX-DUH-5 0.3 MG/24HR TRANSDERMAL PATCH WEEKLY apply 2 patches q week for HTN CLONIDINE HCL 45168524437 No Longer Active Robbie Busby MD Active IMDUR 60 MG ORAL TABLET EXTENDED RELEASE 24 HOUR take 1 tab po qday for blood pressure ISOSORBIDE MONONITRATE 37154800843 No Longer Active Robbie Busby MD Active TEMAZEPAM 15 MG ORAL CAPSULE 1 TAB PO Q HS TEMAZEPAM 20782843091 No Longer Active Robbie Busby MD Active TOPIRAMATE 50 MG ORAL TABLET 1 po BID for migraines TOPIRAMATE 34095424383 No Longer Active Robbie Busby MD Active CYCLOBENZAPRINE HCL 10 MG ORAL TABLET 1 tablet by mouth three times daily as needed for muscle spasm/pain CYCLOBENZAPRINE HCL 01324092654 No Longer Active Robbie Busby MD Active TOPROL XL 200 MG ORAL TABLET EXTENDED RELEASE 24 HOUR Take one by mouth daily METOPROLOL SUCCINATE 07560100346 No Longer Active Robbie Busby MD Active METFORMIN HCL 500 MG ORAL TABLET 1 tablet by mouth daily for diabetes type 2 METFORMIN HCL 51802146095 Active Robbie Busby MD Active SINGULAIR 10 MG ORAL TABLET 1 po qday for allergies. MONTELUKAST SODIUM 85440609560 No Longer Active Robbie Busby MD Active PREDNISONE 20 MG ORAL TABLET two tabs by mouth today, then one tab by mouth days two and three PREDNISONE 67810229806 No Longer Active Robbie Busby MD Active AZITHROMYCIN 250 MG ORAL TABLET 2 po qd x 1 day, then 1 po qd x 4 days 09/20 AZITHROMYCIN 74219664904 No Longer Active Desmond Diaz DO Active TOPIRAMATE 50 MG ORAL TABLET take 1 tab po BID for migraines. TOPIRAMATE 49037526655 No Longer Active Desmond Diaz DO Active CYCLOBENZAPRINE HCL 10 MG ORAL TABLET 1 po TID PRN muscle spasm/pain for 10 days CYCLOBENZAPRINE HCL 49229018247 No Longer Active Desmond Diaz DO Active GUAIFENESIN ER 600 MG ORAL TABLET EXTENDED RELEASE 12 HOUR 1 tab po q am 2016 GUAIFENESIN 24898299482 No Longer Active Robbie Busby MD Active DIVALPROEX SODIUM ER 500 MG ORAL TABLET EXTENDED RELEASE 24 HOUR Once daily DIVALPROEX SODIUM 95914764110 Active Robbie Busby MD Active DEPO-TESTOSTERONE 200 MG/ML INTRAMUSCULAR SOLUTION 1 IM Injections every 2 weeks for low testosterone TESTOSTERONE CYPIONATE 32753510236 Active Zulema Blank LPN Active FLUTICASONE PROPIONATE 50 MCG/ACT NASAL SUSPENSION 2 sprays per nostril bid for 1 week, then 1 spray bid FLUTICASONE PROPIONATE 03159122169 Active Rober Rodríguez APRN Active HYDRALAZINE HCL 25 MG ORAL TABLET Take 1 tab BID. HYDRALAZINE HCL 96731441398 Active Rober Rodríguez APRN Active VITAMIN D3 62678 UNIT ORAL TABLET 2 po weekly CHOLECALCIFEROL 40943666439 Active Robbie Busby MD Active OXYCODONE HCL ER 10 MG ORAL TABLET ER 12 HOUR ABUSE-DETERRENT 1 tab po 3 times qd. OXYCODONE HCL 34235682503 Active Robbie Busby MD Active NITROSTAT 0.4 MG SUBLINGUAL TABLET SUBLINGUAL PRN NITROGLYCERIN 14149551156 No Longer Active Robbie Busby MD Active LORATADINE 10 MG ORAL TABLET 1 tablet by mouth daily for congestion and allergies. LORATADINE 73469440079 No Longer Active Robbie Busby MD Active FLONASE 50 MCG/ACT NASAL SUSPENSION 1 spray each nostril twice daily for allergies and runny nose FLUTICASONE PROPIONATE 81240656298 No Longer Active Robbie Busby MD Active FIORICET 50-300-40 MG ORAL CAPSULE take 1 tab po qday prn migraines. MVBJAJNEJM-MLOP-RNUWYCJA 76431029358 No Longer Active Robbie Busby MD Active VITAMIN D3 98647 UNIT ORAL CAPSULE 2 CAPS PO WEEKLY CHOLECALCIFEROL 32664853148 No Longer Active Robbie Busby MD Active CYCLOBENZAPRINE HCL 10 MG ORAL TABLET 1 tablet by mouth three times daily as needed for muscle spasm/pain for 10 days CYCLOBENZAPRINE HCL 11611404611 No Longer Active Robbie Busby MD Active PREDNISONE 20 MG ORAL TABLET take 3 tabs daily for 3 days, 2 tabs daily for 3 days, 1 tab daily for 3 days, 1/2 tab daily for 4 days PREDNISONE 20496814280 No Longer Active Erin Mai APRN Active CLONIDINE HCL 0.2 MG ORAL TABLET 1 TAB BY MOUTH EVERY 8 HOURS CLONIDINE HCL 20469345655 No Longer Active Erin Mai APRN Active MECLIZINE HCL 25 MG ORAL TABLET one 4 times a day as needed for dizziness MECLIZINE HCL 44896377676 No Longer Active Erin Arell OFFBEARER Active SPIRONOLACTONE 25 MG ORAL TABLET 4 tablets by mouth daily SPIRONOLACTONE 78381871495 No Longer Active Erin Arell OFFBEARER Active LEVAQUIN 500 MG ORAL TABLET 1 tablet by mouth daily for 7 days LEVOFLOXACIN 61312312438 No Longer Active Erin Arell OFFBEARER Active BACTRIM DS 800-160 MG ORAL TABLET 1 tab by mouth twice daily 2015 TRIMETHOPRIM-SULFAMETHOXAZOLE 62861607512 No Longer Active Robbie Busby MD Active HYDRALAZINE HCL 50 MG ORAL TABLET TWO BY MOUTH THREE TIMES DAILY HYDRALAZINE HCL 50995664099 No Longer Active Agnieszkaina Zulemal OFFBEARER Active HYDROCODONE-ACETAMINOPHEN 5-325 MG ORAL TABLET 1 tab by mouth BID prn back pain HYDROCODONE-ACETAMINOPHEN 90996459007 No Longer Active Jillina Frazell OFFBEARER Active HYDROCHLOROTHIAZIDE TABLET Take one by mouth daily HYDROCHLOROTHIAZIDE TABS 60019383194 No Longer Active Jillina Frazell OFFBEARER Active LAMISIL 125 MG ORAL PACKET 1 TAB PO DAILY TERBINAFINE HCL 64882769999 No Longer Active Jillina Frazell OFFBEARER Active TRILEPTAL 150 MG ORAL TABLET 1 TAB PO Q HS OXCARBAZEPINE 58349319118 No Longer Active Jillina Frazell OFFBEARER Active BETADINE 10 % EXTERNAL SOLUTION 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 07/29 POVIDONE-IODINE 10144276420 No Longer Active Jillina Frazell OFFBEARER Active NYSTATIN 021371 UNIT/ML MOUTH/THROAT SUSPENSION 5mL po QID x 10 days NYSTATIN 50155135200 No Longer Active Erin Arell OFFBEARER Active PREDNISONE 20 MG ORAL TABLET 1 tablet twice daily for 2 days, then 1 tablet once daily for 2 days PREDNISONE 90282730934 No Longer Active Robbie Busby MD Active CEFDINIR 300 MG ORAL CAPSULE Take 1 cap po bid x 10 days CEFDINIR 06352214219 No Longer Active Robbie Busby MD Active AMLODIPINE BESYLATE 10 MG ORAL TABLET 1 tablet by mouth daily AMLODIPINE BESYLATE 31254000344 Active Robbie Busby MD Active CARVEDILOL 25 MG ORAL TABLET 1 & 1/2 TAB po BID CARVEDILOL 35538018375 Active Robbie Busby MD Active NEXIUM 40 MG ORAL CAPSULE DELAYED RELEASE 1 cap by mouth daily ESOMEPRAZOLE MAGNESIUM 38522134950 Active Robbie Busby MD Active PROTONIX 40 MG INTRAVENOUS SOLUTION RECONSTITUTED 1 po qday for acid reflux PANTOPRAZOLE SODIUM 63715570347 No Longer Active Galileonila Negro Active KEFLEX 500 MG ORAL CAPSULE 1 po TID x 10 days CEPHALEXIN 45291313761 No Longer Active Robbie Busby MD Active ALPRAZOLAM 2 MG ORAL TABLET 1 TAB PO BID ALPRAZOLAM 88091126380 Active Robbie Busby MD Active FENOFIBRATE 145 MG ORAL TABLET Take one by mouth daily FENOFIBRATE 47494217599 No Longer Active Robbie Busby MD Active SPIRONOLACTONE 50 MG ORAL TABLET 1 tablet by mouth twice a day SPIRONOLACTONE 62116353670 No Longer Active Robbie Busby MD Active HYDRALAZINE HCL 25 MG ORAL TABLET 1 tablet by mouth tid for hypertension 2013 HYDRALAZINE HCL 14371816458 No Longer Active Robbie Busby MD Active VIIBRYD 40 MG ORAL TABLET take 1 tab po qday for depression. 2014 VILAZODONE HCL 36215790636 No Longer Active Robbie Busby MD Active TERBINAFINE HCL 250 MG ORAL TABLET 1 tab po qday for foot infection TERBINAFINE HCL 95680374697 No Longer Active Robbie Busby MD Active GABAPENTIN 300 MG ORAL CAPSULE 1 po q hs for nerve pain GABAPENTIN 61142756510 Active Robbie Busby MD Active CHERATUSSIN AC 100-10 MG/5ML ORAL SOLUTION 7.5 mL PO q 4-6 hrs PRN cough 2014 GUAIFENESIN-CODEINE 66551133761 No Longer Active Robbie Busby MD Active AZITHROMYCIN 250 MG ORAL TABLET 2 tablets PO today---then, 1 tablet PO daily x 4 more days (and 1 optional refill) AZITHROMYCIN 55209344117 No Longer Active Robbie Busby MD Active NORVASC 10 MG ORAL TABLET 1 tablet by mouth daily AMLODIPINE BESYLATE 64651378393 No Longer Active Alex ALVAREZ Active ISOSORBIDE DINITRATE 30 MG ORAL TABLET Take one by mouth daily ISOSORBIDE DINITRATE 07129932535 No Longer Active Robbie Busby MD Active VIIBRYD 40 MG ORAL TABLET 1 TA B PO DAILY VILAZODONE HCL 21616709345 Active Robbie Busby MD Active ZITHROMAX 250 MG ORAL TABLET 2 po today, then 1 po q days 2-5 AZITHROMYCIN 93670511865 No Longer Active Robbie Busby MD Active DOXAZOSIN MESYLATE 4 MG ORAL TABLET Take one by mouth daily DOXAZOSIN MESYLATE 48376446765 Active Robbie Busby MD Active VENLAFAXINE HCL ER 150 MG ORAL TABLET EXTENDED RELEASE 24 HOUR Take one by mouth daily VENLAFAXINE HCL 89972717032 Active Robbie Busby MD Active LIPITOR 40 MG ORAL TABLET Take one by mouth daily ATORVASTATIN CALCIUM 74834003328 Active Robbie Busby MD Active ISOSORBIDE DINITRATE 30 MG ORAL TABLET Take one by mouth daily ISOSORBIDE DINITRATE 30 MG ORAL TABLET 479437 ISOSORBIDE DINITRATE Inactive NORVASC 10 MG ORAL TABLET 1 tablet by mouth daily NORVASC 10 MG ORAL TABLET 112486 AMLODIPINE BESYLATE Inactive AZITHROMYCIN 250 MG ORAL TABLET 2 tablets PO today---then, 1 tablet PO daily x 4 more days (and 1 optional refill) AZITHROMYCIN 250 MG ORAL TABLET 987188 AZITHROMYCIN Inactive CHERATUSSIN AC 100-10 MG/5ML ORAL SOLUTION 7.5 mL PO q 4-6 hrs PRN cough 2014 CHERATUSSIN AC 100-10 MG/5ML ORAL SOLUTION 641523 GUAIFENESIN-CODEINE Inactive VIIBRYD 40 MG ORAL TABLET take 1 tab po qday for depression. 2014 VIIBRYD 40 MG ORAL TABLET VILAZODONE HCL Inactive HYDRALAZINE HCL 25 MG ORAL TABLET 1 tablet by mouth tid for hypertension 2013 HYDRALAZINE HCL 25 MG ORAL TABLET 062723 HYDRALAZINE HCL Inactive SPIRONOLACTONE 50 MG ORAL TABLET 1 tablet by mouth twice a day SPIRONOLACTONE 50 MG ORAL TABLET 328269 SPIRONOLACTONE Inactive FENOFIBRATE 145 MG ORAL TABLET Take one by mouth daily FENOFIBRATE 145 MG ORAL TABLET 317703 FENOFIBRATE Inactive PROTONIX 40 MG INTRAVENOUS SOLUTION RECONSTITUTED 1 po qday for acid reflux PROTONIX 40 MG INTRAVENOUS SOLUTION RECONSTITUTED 773798 PANTOPRAZOLE SODIUM Inactive CEFDINIR 300 MG ORAL CAPSULE Take 1 cap po bid x 10 days CEFDINIR 300 MG ORAL CAPSULE 586737 CEFDINIR Inactive PREDNISONE 20 MG ORAL TABLET 1 tablet twice daily for 2 days, then 1 tablet once daily for 2 days PREDNISONE 20 MG ORAL TABLET 371601 PREDNISONE Inactive NYSTATIN 320170 UNIT/ML MOUTH/THROAT SUSPENSION 5mL po QID x 10 days NYSTATIN 089071 UNIT/ML MOUTH/THROAT SUSPENSION 051391 NYSTATIN Inactive BETADINE 10 % EXTERNAL SOLUTION 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 07/29 BETADINE 10 % EXTERNAL SOLUTION 2163846 POVIDONE-IODINE Inactive TRILEPTAL 150 MG ORAL TABLET 1 TAB PO Q HS TRILEPTAL 150 MG ORAL TABLET 733541 OXCARBAZEPINE Inactive LAMISIL 125 MG ORAL PACKET 1 TAB PO DAILY LAMISIL 125 MG ORAL PACKET TERBINAFINE HCL Inactive HYDROCHLOROTHIAZIDE TABLET Take one by mouth daily HYDROCHLOROTHIAZIDE TABLET HYDROCHLOROTHIAZIDE TABS Inactive HYDROCODONE-ACETAMINOPHEN 5-325 MG ORAL TABLET 1 tab by mouth BID prn back pain HYDROCODONE-ACETAMINOPHEN 5-325 MG ORAL TABLET 241680 HYDROCODONE-ACETAMINOPHEN Inactive HYDRALAZINE HCL 50 MG ORAL TABLET TWO BY MOUTH THREE TIMES DAILY HYDRALAZINE HCL 50 MG ORAL TABLET 007652 HYDRALAZINE HCL Inactive LEVAQUIN 500 MG ORAL TABLET 1 tablet by mouth daily for 7 days LEVAQUIN 500 MG ORAL TABLET 314549 LEVOFLOXACIN Inactive SPIRONOLACTONE 25 MG ORAL TABLET 4 tablets by mouth daily SPIRONOLACTONE 25 MG ORAL TABLET 046367 SPIRONOLACTONE Inactive MECLIZINE HCL 25 MG ORAL TABLET one 4 times a day as needed for dizziness MECLIZINE HCL 25 MG ORAL TABLET 476247 MECLIZINE HCL Inactive CLONIDINE HCL 0.2 MG ORAL TABLET 1 TAB BY MOUTH EVERY 8 HOURS CLONIDINE HCL 0.2 MG ORAL TABLET 259781 CLONIDINE HCL Inactive CYCLOBENZAPRINE HCL 10 MG ORAL TABLET 1 tablet by mouth three times daily as needed for muscle spasm/pain for 10 days CYCLOBENZAPRINE HCL 10 MG ORAL TABLET 378819 CYCLOBENZAPRINE HCL Inactive VITAMIN D3 42812 UNIT ORAL CAPSULE 2 CAPS PO WEEKLY VITAMIN D3 38975 UNIT ORAL CAPSULE CHOLECALCIFEROL Inactive FIORICET 50-300-40 MG ORAL CAPSULE take 1 tab po qday prn migraines. FIORICET 50-300-40 MG ORAL CAPSULE 262072 BUTALBITAL-APAP- CAFFEINE Inactive FLONASE 50 MCG/ACT NASAL SUSPENSION 1 spray each nostril twice daily for allergies and runny nose FLONASE 50 MCG/ACT NASAL SUSPENSION 2498560 FLUTICASONE PROPIONATE Inactive LORATADINE 10 MG ORAL TABLET 1 tablet by mouth daily for congestion and allergies. LORATADINE 10 MG ORAL TABLET 720857 LORATADINE Inactive NITROSTAT 0.4 MG SUBLINGUAL TABLET SUBLINGUAL PRN NITROSTAT 0.4 MG SUBLINGUAL TABLET SUBLINGUAL 269379 NITROGLYCERIN Inactive GUAIFENESIN ER 600 MG ORAL TABLET EXTENDED RELEASE 12 HOUR 1 tab po q am 2016 GUAIFENESIN ER 600 MG ORAL TABLET EXTENDED RELEASE 12 HOUR GUAIFENESIN Inactive CYCLOBENZAPRINE HCL 10 MG ORAL TABLET 1 po TID PRN muscle spasm/pain for 10 days CYCLOBENZAPRINE HCL 10 MG ORAL TABLET 322219 CYCLOBENZAPRINE HCL Inactive TOPIRAMATE 50 MG ORAL TABLET take 1 tab po BID for migraines. TOPIRAMATE 50 MG ORAL TABLET 790343 TOPIRAMATE Inactive PREDNISONE 20 MG ORAL TABLET two tabs by mouth today, then one tab by mouth days two and three PREDNISONE 20 MG ORAL TABLET 902574 PREDNISONE Inactive TOPROL XL 200 MG ORAL TABLET EXTENDED RELEASE 24 HOUR Take one by mouth daily TOPROL XL 200 MG ORAL TABLET EXTENDED RELEASE 24 HOUR METOPROLOL SUCCINATE Inactive CYCLOBENZAPRINE HCL 10 MG ORAL TABLET 1 tablet by mouth three times daily as needed for muscle spasm/pain CYCLOBENZAPRINE HCL 10 MG ORAL TABLET 809407 CYCLOBENZAPRINE HCL Inactive TOPIRAMATE 50 MG ORAL TABLET 1 po BID for migraines TOPIRAMATE 50 MG ORAL TABLET 113672 TOPIRAMATE Inactive TEMAZEPAM 15 MG ORAL CAPSULE 1 TAB PO Q HS TEMAZEPAM 15 MG ORAL CAPSULE 032996 TEMAZEPAM Inactive IMDUR 60 MG ORAL TABLET EXTENDED RELEASE 24 HOUR take 1 tab po qday for blood pressure IMDUR 60 MG ORAL TABLET EXTENDED RELEASE 24 HOUR ISOSORBIDE MONONITRATE Inactive [id number] 0.3 MG/24HR TRANSDERMAL PATCH WEEKLY apply 2 patches q week for HTN [id number] 0.3 MG/24HR TRANSDERMAL PATCH WEEKLY 061117 CLONIDINE HCL Inactive ZITHROMAX 250 MG ORAL TABLET 2 po today, then 1 po q days 2-5 ZITHROMAX 250 MG ORAL TABLET 148485 AZITHROMYCIN Inactive TERBINAFINE HCL 250 MG ORAL TABLET 1 tab po qday for foot infection TERBINAFINE HCL 250 MG ORAL TABLET 306559 TERBINAFINE HCL Inactive KEFLEX 500 MG ORAL CAPSULE 1 po TID x 10 days KEFLEX 500 MG ORAL CAPSULE 474267 CEPHALEXIN Inactive BACTRIM DS 800-160 MG ORAL TABLET 1 tab by mouth twice daily 2015 BACTRIM DS 800-160 MG ORAL TABLET 608188 TRIMETHOPRIM- SULFAMETHOXAZOLE Inactive PREDNISONE 20 MG ORAL TABLET take 3 tabs daily for 3 days, 2 tabs daily for 3 days, 1 tab daily for 3 days, 1/2 tab daily for 4 days PREDNISONE 20 MG ORAL TABLET 095869 PREDNISONE Inactive AZITHROMYCIN 250 MG ORAL TABLET 2 po qd x 1 day, then 1 po qd x 4 days 09/20 AZITHROMYCIN 250 MG ORAL TABLET 783328 AZITHROMYCIN Inactive SINGULAIR 10 MG ORAL TABLET 1 po qday for allergies. SINGULAIR 10 MG ORAL TABLET 158618 MONTELUKAST SODIUM Inactive Advance Directives Directive Description [...] AUTO - Chemistry sodium, serum 142 mmol/L 441-113 7385/07/17 carbon dioxide, venous blood 28.2 mmol/L 21.0-32.0 [...] % 11.0-15.0 platelet count 185 THOUSAND/UL 10*3/mm3 124-431 2350/04/14 mean platelet volume 10.9 fL 7.5-12.5 Lab Report: HGBA1C, Basic Metabolic Panel - Chemistry hemoglobin A1C, blood, as % of total hemoglobin 6.9 % 4.3-6.0 sodium, serum 139 mmol/L 174-215 4741/01/04 potassium, serum 3.9 mmol/L 3.5-5.2 chloride, serum 103 mmol/L 98-107 carbon dioxide, venous blood 26.9 mmol/L 21.0-32.0 blood glucose 106 mg/dL 65-110 calcium, serum 9.0 mg/dL 8.5-10.1 urea nitrogen, blood 20 mg/dL 7-18 creatinine, serum 1.46 mg/dL 0.60-1.30 Lab Report: LIPID PANEL, TSH/899, T4, FREE/866 - Chemistry cholesterol, serum 220 mg/dL 951-950 2395/04/14 HDL cholesterol, serum 30 mg/dL > OR=40 [...] 1.80 ng/mL 0.00-4.00 Lab Report: VITAMIN D, 25-HYDROXY/48629 - Chemistry vitamin D 25-hydroxy, serum 25 ng/mL 30-100 Office Visit: Confusion, dizziness after fall - Basic LDL target level 130 mg/dL Office Visit: Confusion, dizziness after fall - Chemistry HDL cholesterol, serum, target level 40 mg/dL triglyceride, target level 150 mg/dL cholesterol, target level 200 mg/dL Encounters Code Encounter Date Provider Facility CPT-11370 Level 4 Est. Patient 09:50:01 [employer] Robbie Busby MD [facility] CPT-64861 Level 4 Est. Patient 09:42:08 [employer] Robbie Busby MD [facility] CPT-41987 Level 4 Est. Patient 13:07:39 [employer] Robbie Busby MD [facility] CPT-77641 Level 4 Est. Patient 15:23:44 [employer] Desmond Diaz DO [facility] CPT-09216 Level 3 Est. Patient 15:40:49 CDT Robbie Busby MD [facility] CPT-64870 Level 4 Est. Patient 15:18:19 CDT Robbie Busby MD [facility] CPT-68854 Level 3 Est. Patient 09:00:37 CDT Rober Rodríguez [facility] CPT-77663 Level 3 Est. Patient 16:07:10 CDT Robbie Busby MD [facility] CPT-46645 Level 4 Est. Patient 11:56:16 CDT Erin Mai [facility] CPT-75528 Level 3 Est. Patient 17:48:02 CDT Robbie Busby MD [facility] CPT-86842 Level 4 Est. Patient 12:00:49 [employer] Rober Rodríguez [facility] CPT-46102 Level 3 Est. Patient 09:16:37 CDT Robbie Busby MD [facility] CPT-96891 Level 3 Est. Patient 19:38:43 CDT Robbie Busby MD [facility] CPT-08899 Level 3 Est. Patient 11:53:38 CDT Robbie Busby MD [facility] CPT-63458 Level 4 Est. Patient 12:52:22 CDT Rober Rodríguez [facility] CPT-24082 Level 4 Est. Patient 22:55:17 CDT Robbie Busby MD [facility] CPT-07983 Level 3 Est. Patient 12:38:24 CDT Desmond Diaz DO [facility] CPT-12628 Level 4 Est. Patient 11:25:03 [employer] Robbie Busby MD [facility] CPT-45990 Level 4 Est. Patient 14:50:10 CDT Robbie Busby MD [facility] CPT-25383 Level 4 Est. Patient 23:30:43 CDT Robbie Busby MD [facility] CPT-71428 Level 4 Est. Patient 10:30:43 CDT Robbie Busby MD [facility] CPT-57403 Level 3 Est. Patient 17:08:12 CDT Alex Shaw [facility] CPT-63444 Level 4 Est. Patient 17:51:38 CDT Robbie Busby MD [facility] CPT-52852 Level 4 Est. Patient 14:00:21 CDT Robbie Busby MD [facility] CPT-76054 Level 4 Est. Patient 12:46:48 CDT Robbie Busby MD [facility] CPT-65684 Level 4 Est. Patient 13:34:33 CDT Robbie Busby MD [facility] CPT-66917 Level 4 Est. Patient 16:58:28 CDT Robbie Busby MD [facility] CPT-01853 Level 3 Est. Patient 19:36:53 CDT Alex Shaw [facility] CPT-41150 Level 3 Est. Patient 12:58:15 CDT Robbie Busby MD [facility] Procedures Code Procedure Name Date Entry Date Standard Description CPT-J1071 Depo Testosterone 200mg 16:10:29 [employer] CPT-26859 Abx/Therapy Injection 16:10:29 [employer] CPT-J1071 Depo Testosterone 200mg 16:13:47 [employer] CPT-36175 Abx/Therapy Injection 16:13:46 [employer] CPT-J1071 Depo Testosterone 200mg 15:33:58 [facility] CPT-72134 Abx/Therapy Injection 15:33:58 [facility] CPT-J1071 Depo Testosterone 200mg 09:38:36 [facility] CPT-54211 Abx/Therapy Injection 09:38:36 [facility] CPT-J1071 Depo Testosterone 200mg 10:22:56 [facility] CPT-58266 Abx/Therapy Injection 10:22:56 [facility] CPT-J1071 Depo Testosterone 200mg 15:40:23 CDT CPT-02139 Abx/Therapy Injection 15:40:23 CDT CPT-J1071 Depo Testosterone 200mg 14:20:43 CDT CPT-75273 Abx/Therapy Injection 14:20:43 CDT CPT-J1071 Depo Testosterone 200mg 14:17:22 CDT CPT-15402 Abx/Therapy Injection 14:17:22 CDT CPT-J1071 Depo Testosterone 200mg 09:03:53 CDT CPT-07873 Abx/Therapy Injection 09:03:53 CDT CPT-G0439 [facility] Annual Wellness Exam 16:47:44 CDT CPT-J1071 Depo Testosterone 200mg 09:06:28 CDT CPT-93096 Abx/Therapy Injection 09:06:28 CDT CPT-J1071 Depo Testosterone 200mg 08:30:01 CDT CPT-88256 Abx/Therapy Injection 08:30:01 CDT CPT-J1071 Depo Testosterone 200mg 08:24:00 CDT CPT-19342 Abx/Therapy Injection 08:24:00 CDT CPT-26534 Venipuncture Draw Fee 14:39:06 CDT CPT-90861 Ribs unilateral 2V - XRAY USE ONLY 12:10:11 CDT CPT-23247 First Vx - Ix admin for Medicare patients 16:32:53 CDT CPT-38454 Boostrix Intramuscular Suspension 5-2.5-18.5 16:32:53 CDT CPT-45327 TB Skin Test 11:42:28 CDT CPT-08255 Tdap 7yrs or > 11:42:28 CDT CPT-J0696 Rocephin 1000 mg (Ceftriaxone) 17:43:43 [employer] CPT-J1040 Depo Medrol 80 mg (Methyl Prednisolone Acetate) 17:43: 43 [employer] CPT-J1100 Decadron 8mg (Dexamethasone) 17:43:42 [employer] CPT-23710 Abx/Therapy Injection 17:43:42 [employer] CPT-14676 Abx/Therapy Injection 17:43:42 [employer] CPT-J1040 Depo Medrol 80 mg (Methyl Prednisolone Acetate) 09:43: 34 [employer] CPT-J1100 Decadron 8mg (Dexamethasone) 09:43:34 [employer] CPT-J0696 Rocephin 1gm Inj Solr 09:43:34 [employer] CPT-68014 Wound Culture - LAB USE ONLY 14:00:21 CDT CPT-I/D I/D Abscess 09:16:37 CDT CPT-08316 Venipuncture Draw Fee 15:20:23 CDT CPT-48538 Microalbumin - LAB USE ONLY 16:02:19 CDT CPT-09732 CBC - LAB USE ONLY 16:02:19 CDT CPT-32467 Venipuncture Draw Fee 16:02:19 CDT CPT-G0438 Initial Annual Wellness Exam 08:10:28 CDT CPT-85402 Venipuncture Draw Fee 13:07:17 CDT CPT-G0008 Administration of Influenza Virus Vaccine 16:09:59 CDT CPT-49185 Fluzone Quadrivalent Intramuscular Suspension 0.5 ML 16: 09:59 CDT CPT-39626 Spec Collection and Handling Fee 15:05:50 CDT
--- OUTSIDE RECORDS SUMMARY | 2018-04-18 11:23 | XMS REPORT | Clinical Summary ---
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 OXYCODONE HCL 41231418246 Active Robbie Busby MD Active NITROSTAT 0.4 MG SUBL PRN NITROGLYCERIN 23023288204 No Longer Active Robbie Busby MD Active LORATADINE 10 MG TABS 1 tablet by mouth daily for congestion and allergies. LORATADINE 58278026710 No Longer Active Robbie Busby MD Active FLONASE 50 MCG/ACT SUSP 1 spray each nostril twice daily for allergies and runny nose FLUTICASONE PROPIONATE 65881694877 No Longer Active Robbie Busby MD Active FIORICET 50-300-40 MG ORAL CAPS take 1 tab po qday prn migraines. [id number] 09583469265 No Longer Active Robbie Busby MD Active VITAMIN D3 62345 UNIT CAPS 2 CAPS PO WEEKLY CHOLECALCIFEROL 66859852873 No Longer Active Robbie Busby MD Active CYCLOBENZAPRINE HCL 10 MG TABS 1 tablet by mouth three times daily as needed for muscle spasm/pain for 10 days CYCLOBENZAPRINE HCL 32443157222 No Longer Active Robbie Busby MD Active PREDNISONE 20 MG TAB take 3 tabs daily for 3 days, 2 tabs daily for 3 days, 1 tab daily for 3 days, 1/2 tab daily for 4 days PREDNISONE 08970109980 No Longer Active Erin Garsia APRN Active CLONIDINE HCL 0.2 MG ORAL TABS 1 TAB BY MOUTH EVERY 8 HOURS 12/29 CLONIDINE HCL 18929830685 No Longer Active Erin Garsia APRN Active MECLIZINE HCL 25 MG TAB one 4 times a day as needed for dizziness MECLIZINE HCL 40082172052 No Longer Active Erin Garsia APRN Active SPIRONOLACTONE 25 MG TAB 4 tablets by mouth daily SPIRONOLACTONE 98881820941 No Longer Active Erin Garsia APRN Active LEVAQUIN 500 MG TAB 1 tablet by mouth daily for 7 days LEVOFLOXACIN 59665368250 No Longer Active Erin Garsia APRN Active BACTRIM DS 800-160 MG TAB 1 tab by mouth twice daily TRIMETHOPRIM-SULFAMETHOXAZOLE 97441188589 No Longer Active Robbie Busby MD Active HYDRALAZINE HCL 50 MG ORAL TABS TWO BY MOUTH THREE TIMES DAILY HYDRALAZINE HCL 23100642002 No Longer Active Rober Rodríguez APRN Active HYDROCODONE-ACETAMINOPHEN 5-325 MG TABS 1 tab by mouth BID prn back pain 2013 HYDROCODONE-ACETAMINOPHEN 56577652155 No Longer Active Rober Rodríguez APRN Active HYDROCHLOROTHIAZIDE TABS Take one by mouth daily HYDROCHLOROTHIAZIDE TABS 05138114987 No Longer Active Rober Rodríguez APRN Active LAMISIL 125 MG ORAL PACK 1 TAB PO DAILY TERBINAFINE HCL 45223115469 No Longer Active Jillina Franeha WIRE 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 MACHINE OPERATOR Active TRILEPTAL 150 MG ORAL TABS 1 TAB PO Q HS OXCARBAZEPINE 14119404327 No Longer Active Jillina Frazell WIRE DRAWING MACHINE OPERATOR Active BETADINE 10 % EXT SOLN 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 POVIDONE-IODINE 63503795781 No Longer Active Jillina Frazell WIRE DRAWING MACHINE OPERATOR Active NYSTATIN 678279 UNIT/ML M/T SUSP 5mL po QID x 10 days NYSTATIN 88727815659 No Longer Active Erin Garsia APRN Active PREDNISONE 20 MG TAB 1 tablet twice daily for 2 days, then 1 tablet once daily for 2 days PREDNISONE 50568714223 No Longer Active Robbie Busby MD Active CEFDINIR 300 MG ORAL CAPS Take 1 cap po bid x 10 days CEFDINIR 84825876957 No Longer Active Robbie Busby MD Active AMLODIPINE BESYLATE 10 MG TABS 1 tablet by mouth daily AMLODIPINE BESYLATE 95273792087 Active Robbie Busby MD Active CARVEDILOL 25 MG TABS 1 & 1/2 TAB po BID CARVEDILOL 31471513209 Active Robbie Busby MD Active NEXIUM 40 MG CPDR 1 cap by mouth daily ESOMEPRAZOLE MAGNESIUM 25430057904 Active Robbie Busby MD Active PROTONIX 40 MG SOLR 1 po qday for acid reflux PANTOPRAZOLE SODIUM 41782985269 No Longer Active Gali Raida Active KEFLEX 500 MG CAP 1 po TID x 10 days CEPHALEXIN 16206335730 No Longer Active Robbie Busby MD Active TOPIRAMATE 50 MG ORAL TABS take 1 tab po BID for migraines. TOPIRAMATE 61592915801 Active Robbie Busby MD Active TEMAZEPAM 15 MG ORAL CAPS 1 TAB PO Q HS TEMAZEPAM 54035939678 Active Robbie Busby MD Active ALPRAZOLAM 2 MG ORAL TABS 1 TAB PO BID ALPRAZOLAM 70981356039 Active Robbie Busby MD Active FENOFIBRATE 145 MG TABS Take one by mouth daily FENOFIBRATE 62769727448 No Longer Active Robbie Busby MD Active SPIRONOLACTONE 50 MG TABS 1 tablet by mouth twice a day SPIRONOLACTONE 47365548634 No Longer Active Robbie Busby MD Active HYDRALAZINE HCL 25 MG TABS 1 tablet by mouth tid for hypertension HYDRALAZINE HCL 39006047448 No Longer Active Robbie Busby MD Active VIIBRYD 40 MG TABS take 1 tab po qday for depression. VILAZODONE HCL 70970897438 No Longer Active Robbie Busby MD Active TERBINAFINE HCL 250 MG TABS 1 tab po qday for foot infection 2014 TERBINAFINE HCL 17892724665 No Longer Active Robbie Busby MD Active GABAPENTIN 300 MG CAPS 1 po q hs for nerve pain GABAPENTIN 06566511157 Active Robbie Busby MD Active CHERATUSSIN AC 100-10 MG/5ML ORAL SOLN 7.5 mL PO q 4-6 hrs PRN cough GUAIFENESIN-CODEINE 60180382850 No Longer Active Robbie Busby MD Active AZITHROMYCIN 250 MG ORAL TABS 2 tablets PO today---then, 1 tablet PO daily x 4 more days (and 1 optional refill) AZITHROMYCIN 59837589549 No Longer Active Robbie Busby MD Active NORVASC 10 MG TAB 1 tablet by mouth daily AMLODIPINE BESYLATE 85742906731 No Longer Active Alex ALVAREZ Active IMDUR 60 MG TAB CR take 1 tab po qday for blood pressure ISOSORBIDE MONONITRATE Active Robbie Busby MD Active ISOSORBIDE DINITRATE 30 MG TABS Take one by mouth daily ISOSORBIDE DINITRATE 41002134951 No Longer Active Robbie Busby MD Active VIIBRYD 40 MG TABS 1 TA B PO DAILY VILAZODONE HCL 08364302765 Active Robbie Busby MD Active ZITHROMAX 250 MG TAB 2 po today, then 1 po q days 2-5 AZITHROMYCIN 25852875352 No Longer Active Robbie Busby MD Active [id number] 0.3 MG/24HR PTWK apply 2 patches q week for HTN CLONIDINE HCL 10729753155 Active Robbie Busby MD Active DOXAZOSIN MESYLATE 4 MG TABS Take one by mouth daily DOXAZOSIN MESYLATE 92008187759 Active Robbie Busby MD Active TOPROL XL 200 MG [id number] Take one by mouth daily METOPROLOL SUCCINATE 18310236713 Active Robbie Busby MD Active VENLAFAXINE HCL ER 150 MG [id number] Take one by mouth daily VENLAFAXINE HCL 31653379521 Active Robbie Busby MD Active LIPITOR 40 MG TABS Take one by mouth daily ATORVASTATIN CALCIUM 60013005378 Active Robbie Busby MD Active ISOSORBIDE DINITRATE 30 MG TABS Take one by mouth daily ISOSORBIDE DINITRATE 30 MG TABS 060338 ISOSORBIDE DINITRATE Inactive NORVASC 10 MG TAB 1 tablet by mouth daily NORVASC 10 MG TAB 533714 AMLODIPINE BESYLATE Inactive AZITHROMYCIN 250 MG ORAL TABS 2 tablets PO today---then, 1 tablet PO daily x 4 more days (and 1 optional refill) AZITHROMYCIN 250 MG ORAL TABS 6741334 AZITHROMYCIN Inactive CHERATUSSIN AC 100-10 MG/5ML ORAL SOLN 7.5 mL PO q 4-6 hrs PRN cough CHERATUSSIN AC 100-10 MG/5ML ORAL SOLN 418451 GUAIFENESIN- CODEINE Inactive VIIBRYD 40 MG TABS take 1 tab po qday for depression. VIIBRYD 40 MG TABS VILAZODONE HCL Inactive HYDRALAZINE HCL 25 MG TABS 1 tablet by mouth tid for hypertension HYDRALAZINE HCL 25 MG TABS 287005 HYDRALAZINE HCL Inactive SPIRONOLACTONE 50 MG TABS 1 tablet by mouth twice a day SPIRONOLACTONE 50 MG TABS 345355 SPIRONOLACTONE Inactive FENOFIBRATE 145 MG TABS Take one by mouth daily FENOFIBRATE 145 MG TABS 876938 FENOFIBRATE Inactive PROTONIX 40 MG SOLR 1 po qday for acid reflux PROTONIX 40 MG SOLR 266862 PANTOPRAZOLE SODIUM Inactive CEFDINIR 300 MG ORAL CAPS Take 1 cap po bid x 10 days CEFDINIR 300 MG ORAL CAPS 754238 CEFDINIR Inactive PREDNISONE 20 MG TAB 1 tablet twice daily for 2 days, then 1 tablet once daily for 2 days PREDNISONE 20 MG TAB 259443 PREDNISONE Inactive NYSTATIN 190757 UNIT/ML M/T SUSP 5mL po QID x 10 days NYSTATIN 752503 UNIT/ML M/T SUSP 385667 NYSTATIN Inactive BETADINE 10 % EXT SOLN 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 BETADINE 10 % EXT SOLN 0031005 POVIDONE-IODINE Inactive TRILEPTAL 150 MG ORAL TABS 1 TAB PO Q HS TRILEPTAL 150 MG ORAL TABS 175266 OXCARBAZEPINE Inactive LAMISIL 125 MG ORAL PACK 1 TAB PO DAILY LAMISIL 125 MG ORAL PACK TERBINAFINE HCL Inactive HYDROCHLOROTHIAZIDE TABS Take one by mouth daily HYDROCHLOROTHIAZIDE TABS HYDROCHLOROTHIAZIDE TABS Inactive HYDROCODONE-ACETAMINOPHEN 5-325 MG TABS 1 tab by mouth BID prn back pain 2013 HYDROCODONE-ACETAMINOPHEN 5-325 MG TABS 081721 HYDROCODONE -ACETAMINOPHEN Inactive HYDRALAZINE HCL 50 MG ORAL TABS TWO BY MOUTH THREE TIMES DAILY HYDRALAZINE HCL 50 MG ORAL TABS 082013 HYDRALAZINE HCL Inactive LEVAQUIN 500 MG TAB 1 tablet by mouth daily for 7 days LEVAQUIN 500 MG TAB 312156 LEVOFLOXACIN Inactive SPIRONOLACTONE 25 MG TAB 4 tablets by mouth daily SPIRONOLACTONE 25 MG TAB 860985 SPIRONOLACTONE Inactive MECLIZINE HCL 25 MG TAB one 4 times a day as needed for dizziness MECLIZINE HCL 25 MG TAB 793891 MECLIZINE HCL Inactive CLONIDINE HCL 0.2 MG ORAL TABS 1 TAB BY MOUTH EVERY 8 HOURS 12/29 CLONIDINE HCL 0.2 MG ORAL TABS 864217 CLONIDINE HCL Inactive CYCLOBENZAPRINE HCL 10 MG TABS 1 tablet by mouth three times daily as needed for muscle spasm/pain for 10 days CYCLOBENZAPRINE HCL 10 MG TABS 196414 CYCLOBENZAPRINE HCL Inactive VITAMIN D3 53555 UNIT CAPS 2 CAPS PO WEEKLY VITAMIN D3 67226 UNIT CAPS CHOLECALCIFEROL Inactive FIORICET 50-300-40 MG ORAL CAPS take 1 tab po qday prn migraines. FIORICET 50-300-40 MG ORAL CAPS 302379 [id number] Inactive FLONASE 50 MCG/ACT SUSP 1 spray each nostril twice daily for allergies and runny nose FLONASE 50 MCG/ACT SUSP 3479562 FLUTICASONE PROPIONATE Inactive LORATADINE 10 MG TABS 1 tablet by mouth daily for congestion and allergies. LORATADINE 10 MG TABS 801196 LORATADINE Inactive NITROSTAT 0.4 MG SUBL PRN NITROSTAT 0.4 MG SUBL 030390 NITROGLYCERIN Inactive ZITHROMAX 250 MG TAB 2 po today, then 1 po q days 2-5 ZITHROMAX 250 MG TAB 6616569 AZITHROMYCIN Inactive TERBINAFINE HCL 250 MG TABS 1 tab po qday for foot infection 2014 TERBINAFINE HCL 250 MG TABS 373501 TERBINAFINE HCL Inactive KEFLEX 500 MG CAP 1 po TID x 10 days KEFLEX 500 MG CAP 813171 CEPHALEXIN Inactive BACTRIM DS 800-160 MG TAB 1 tab by mouth twice daily BACTRIM DS 800-160 MG TAB 164824 TRIMETHOPRIM-SULFAMETHOXAZOLE Inactive PREDNISONE 20 MG TAB take 3 tabs daily for 3 days, 2 tabs daily for 3 days, 1 tab daily for 3 days, 1/2 tab daily for 4 days PREDNISONE 20 MG TAB 727932 PREDNISONE Inactive Advance Directives Directive Description Start [...] % 11.0-15.0 platelet count 185 THOUSAND/UL 10*3/mm3 336-632 4035/04/14 mean platelet volume 10.9 fL 7.5-12.5 Lab Report: LIPID PANEL, TSH/899, T4, FREE/866 - Chemistry cholesterol, serum 220 mg/dL 362-984 0611/04/14 HDL cholesterol, serum 30 mg/dL > OR=40 [...] mg/dL Encounters Code Encounter Date Provider Facility CPT-77754 Level 3 Est. Patient 16:07:10 CDT Robbie Busby MD [facility] CPT-64973 Level 4 Est. Patient 11:56:16 CDT Erin Garsia [facility] CPT-26681 Level 3 Est. Patient 17:48:02 CDT Robbie Busby MD [facility] CPT-54531 Level 4 Est. Patient 12:00:49 [employer] Rober Rodríguez [facility] CPT-64846 Level 3 Est. Patient 09:16:37 CDT Robbie Busby MD [facility] CPT-82747 Level 3 Est. Patient 19:38:43 CDT Robbie Busby MD [facility] CPT-34636 Level 3 Est. Patient 11:53:38 CDT Robbie Busby MD [facility] CPT-36494 Level 4 Est. Patient 12:52:22 CDT Rober Rodríguez [facility] CPT-38071 Level 4 Est. Patient 22:55:17 CDT Robbie Busby MD [facility] CPT-73843 Level 3 Est. Patient 12:38:24 CDT Desmond Diaz DO [facility] CPT-86718 Level 4 Est. Patient 11:25:03 [employer] Robbie Busby MD [facility] CPT-90921 Level 4 Est. Patient 14:50:10 CDT Robbie Busby MD [facility] CPT-38899 Level 4 Est. Patient 23:30:43 CDT Robbie Busby MD [facility] CPT-51383 Level 4 Est. Patient 10:30:43 CDT Robbie Busby MD [facility] CPT-62843 Level 3 Est. Patient 17:08:12 CDT Alex Shaw [facility] CPT-89756 Level 4 Est. Patient 17:51:38 CDT Robbie Busby MD [facility] CPT-75309 Level 4 Est. Patient 14:00:21 CDT Robbie Busby MD [facility] CPT-99997 Level 4 Est. Patient 12:46:48 CDT Robbie Busby MD [facility] CPT-92951 Level 4 Est. Patient 13:34:33 CDT Robbie Busby MD [facility] CPT-56583 Level 4 Est. Patient 16:58:28 CDT Robbie Busby MD [facility] CPT-19966 Level 3 Est. Patient 19:36:53 CDT Alex Shaw [facility] CPT-10355 Level 3 Est. Patient 12:58:15 CDT Robbie Busby MD [facility] Procedures Code Procedure Name Date Entry Date Standard Description CPT-79330 Ribs unilateral 2V - XRAY USE ONLY 12:10:11 CDT CPT-24998 First Vx - Ix admin for Medicare patients 16:32:53 CDT CPT-11916 Boostrix Intramuscular Suspension 5-2.5-18.5 16:32:53 CDT CPT-08528 TB Skin Test 11:42:28 CDT CPT-58854 Tdap 7yrs or > 11:42:28 CDT CPT-J0696 Rocephin 1000 mg (Ceftriaxone) 17:43:43 [employer]IP[employer]IN[employer] CPT-J1040 Depo Medrol 80 mg (Methyl Prednisolone Acetate) 17:43: 43 [employer] CPT-J1100 Decadron 8mg (Dexamethasone) 17:43:42 [employer] CPT-09035 Abx/Therapy Injection 17:43:42 [employer] CPT-66919 Abx/Therapy Injection 17:43:42 [employer] CPT-J1040 Depo Medrol 80 mg (Methyl Prednisolone Acetate) 09:43: 34 [employer] CPT-J1100 Decadron 8mg (Dexamethasone) 09:43:34 [employer]IN[employer] CPT-J0696 Rocephin 1gm Inj Solr 09:43:34 [employer] CPT-89672 Wound Culture - LAB USE ONLY 14:00:21 CDT CPT-I/D I/D Abscess 09:16:37 CDT CPT-98923 Venipuncture Draw Fee 15:20:23 CDT CPT-49525 Microalbumin - LAB USE ONLY 16:02:19 CDT CPT-30298 CBC - LAB USE ONLY 16:02:19 CDT CPT-19460 Venipuncture Draw Fee 16:02:19 CDT CPT-G0438 Initial Annual Wellness Exam 08:10:28 CDT CPT-61798 Venipuncture Draw Fee 13:07:17 CDT CPT-G0008 Administration of Influenza Virus Vaccine 16:09:59 CDT CPT-47149 Fluzone Quadrivalent Intramuscular Suspension 0.5 ML 16: 09:59 CDT CPT-87929 Spec Collection and Handling Fee 15:05:50 CDT
--- OUTSIDE RECORDS SUMMARY | 2018-04-18 11:24 | XMS REPORT | Clinical Summary ---
Author Author Admin, [facility] Organization [facility] Address Unknown Phone Unavailable Allergies, Adverse Reactions, [...] by mouth daily for 7 days LEVOFLOXACIN 14793348765 Active Erin Garsia APRN Active BACTRIM DS 800-160 MG TAB 1 tab by mouth twice daily TRIMETHOPRIM-SULFAMETHOXAZOLE 46381436118 No Longer Active Robbie Busby MD Active SPIRONOLACTONE 25 MG TAB 4 tablets by mouth daily SPIRONOLACTONE 82570379525 Active Robbie Busby MD Active HYDRALAZINE HCL 50 MG ORAL TABS TWO BY MOUTH THREE TIMES DAILY HYDRALAZINE HCL 15805737629 No Longer Active Andrellina uZlemal REEL AND REWINDER OPERATOR Active HYDROCODONE-ACETAMINOPHEN 5-325 MG TABS 1 tab by mouth BID prn back pain 2013 HYDROCODONE-ACETAMINOPHEN 30708664492 No Longer Active Jillina Frazell REEL AND REWINDER OPERATOR Active HYDROCHLOROTHIAZIDE TABS Take one by mouth daily HYDROCHLOROTHIAZIDE TABS 78148642786 No Longer Active Jillina Frazell REEL AND REWINDER OPERATOR Active LAMISIL 125 MG ORAL PACK 1 TAB PO DAILY TERBINAFINE HCL 90256986791 No Longer Active Jillina Frazell REEL AND REWINDER OPERATOR Active TRILEPTAL 150 MG ORAL TABS 1 TAB PO Q HS OXCARBAZEPINE 04724852290 No Longer Active Jillina Frazell REEL AND REWINDER OPERATOR Active BETADINE 10 % EXT SOLN 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 POVIDONE-IODINE 38685543085 No Longer Active Jillina Frazell REEL AND REWINDER OPERATOR Active NYSTATIN 755930 UNIT/ML M/T SUSP 5mL po QID x 10 days NYSTATIN 23576996377 No Longer Active Erin Garsia APRN Active PREDNISONE 20 MG TAB 1 tablet twice daily for 2 days, then 1 tablet once daily for 2 days PREDNISONE 21276533365 No Longer Active Robbie Busby MD Active CEFDINIR 300 MG ORAL CAPS Take 1 cap po bid x 10 days CEFDINIR 07825635341 No Longer Active Robbie Busby MD Active AMLODIPINE BESYLATE 10 MG TABS 1 tablet by mouth daily AMLODIPINE BESYLATE 70570508555 Active Robbie Busby MD Active CARVEDILOL 25 MG TABS 1 & 1/2 TAB po BID CARVEDILOL 89014544703 Active Erin Garsia APRN Active VITAMIN D3 82244 UNIT CAPS 2 CAPS PO WEEKLY CHOLECALCIFEROL 24658314102 Active Erin Garsia APRN Active NEXIUM 40 MG CPDR 1 cap by mouth daily ESOMEPRAZOLE MAGNESIUM 78099782229 Active Robbie Busby MD Active PROTONIX 40 MG SOLR 1 po qday for acid reflux PANTOPRAZOLE SODIUM 53044685682 No Longer Active Gali Raida Active KEFLEX 500 MG CAP 1 po TID x 10 days CEPHALEXIN 83978061035 No Longer Active Robbie Busby MD Active FIORICET 50-300-40 MG ORAL CAPS take 1 tab po qday prn migraines. HVQOIAYLFH-GCAF-OSTUMYYC 47409253265 Active Robbie Busby MD Active TOPIRAMATE 50 MG ORAL TABS take 1 tab po BID for migraines. TOPIRAMATE 66518503013 Active Robbie Busby MD Active MECLIZINE HCL 25 MG TAB one 4 times a day as needed for dizziness MECLIZINE HCL 97688621789 Active Robbie Busby MD Active TEMAZEPAM 15 MG ORAL CAPS 1 TAB PO Q HS TEMAZEPAM 70800067724 Active Robbie Busby MD Active ALPRAZOLAM 2 MG ORAL TABS 1 TAB PO BID ALPRAZOLAM 63482245846 Active Robbie Busby MD Active FENOFIBRATE 145 MG TABS Take one by mouth daily FENOFIBRATE 15682109164 No Longer Active Robbie Busby MD Active SPIRONOLACTONE 50 MG TABS 1 tablet by mouth twice a day SPIRONOLACTONE 92600249563 No Longer Active Robbie Busby MD Active HYDRALAZINE HCL 25 MG TABS 1 tablet by mouth tid for hypertension HYDRALAZINE HCL 10330245410 No Longer Active Robbie Busby MD Active VIIBRYD 40 MG TABS take 1 tab po qday for depression. VILAZODONE HCL 47039471644 No Longer Active Robbie Busby MD Active TERBINAFINE HCL 250 MG TABS 1 tab po qday for foot infection 2014 TERBINAFINE HCL 33144256295 No Longer Active Robbie Busby MD Active GABAPENTIN 300 MG CAPS 1 po q hs for nerve pain GABAPENTIN 04433636215 Active Robbie Busby MD Active FLONASE 50 MCG/ACT SUSP 1 spray each nostril twice daily for allergies and runny nose FLUTICASONE PROPIONATE 80419344197 Active Robbie Busby MD Active CHERATUSSIN AC 100-10 MG/5ML ORAL SOLN 7.5 mL PO q 4-6 hrs PRN cough GUAIFENESIN-CODEINE 78284609890 No Longer Active Robbie Busby MD Active AZITHROMYCIN 250 MG ORAL TABS 2 tablets PO today---then, 1 tablet PO daily x 4 more days (and 1 optional refill) AZITHROMYCIN 75635056232 No Longer Active Robbie Busby MD Active CLONIDINE HCL 0.2 MG ORAL TABS 1 TAB BY MOUTH EVERY 8 HOURS CLONIDINE HCL 09769675536 Active Erin Garsia APRN Active NORVASC 10 MG TAB 1 tablet by mouth daily AMLODIPINE BESYLATE 94673283416 No Longer Active Alex ALVAREZ Active IMDUR 60 MG TAB CR take 1 tab po qday for blood pressure ISOSORBIDE MONONITRATE Active Robbie Busby MD Active ISOSORBIDE DINITRATE 30 MG TABS Take one by mouth daily ISOSORBIDE DINITRATE 80677766614 No Longer Active Robbie Busby MD Active VIIBRYD 40 MG TABS 1 TA B PO DAILY VILAZODONE HCL 61762894765 Active Robbie Busby MD Active LORATADINE 10 MG TABS 1 tablet by mouth daily for congestion and allergies. LORATADINE 17598197820 Active Robbie Busby MD Active ZITHROMAX 250 MG TAB 2 po today, then 1 po q days 2-5 AZITHROMYCIN 79787279529 No Longer Active Robbie Busby MD Active [id number] 0.3 MG/24HR PTWK apply 2 patches q week for HTN CLONIDINE HCL 95067168402 Active Robbie Busby MD Active NITROSTAT 0.4 MG SUBL PRN NITROGLYCERIN 10158889875 Active Robbie Busby MD Active DOXAZOSIN MESYLATE 4 MG TABS Take one by mouth daily DOXAZOSIN MESYLATE 94859252465 Active Erin Garsia APRN Active TOPROL XL 200 MG [id number] Take one by mouth daily METOPROLOL SUCCINATE 91010505925 Active Robbie Busby MD Active VENLAFAXINE HCL ER 150 MG [id number] Take one by mouth daily VENLAFAXINE HCL 18237849193 Active Robbie Busby MD Active LIPITOR 40 MG TABS Take one by mouth daily ATORVASTATIN CALCIUM 50172172264 Active Robbie Busby MD Active ISOSORBIDE DINITRATE 30 MG TABS Take one by mouth daily ISOSORBIDE DINITRATE 30 MG TABS 546670 ISOSORBIDE DINITRATE Inactive NORVASC 10 MG TAB 1 tablet by mouth daily NORVASC 10 MG TAB 409877 AMLODIPINE BESYLATE Inactive AZITHROMYCIN 250 MG ORAL TABS 2 tablets PO today---then, 1 tablet PO daily x 4 more days (and 1 optional refill) AZITHROMYCIN 250 MG ORAL TABS 2963816 AZITHROMYCIN Inactive CHERATUSSIN AC 100-10 MG/5ML ORAL SOLN 7.5 mL PO q 4-6 hrs PRN cough CHERATUSSIN AC 100-10 MG/5ML ORAL SOLN 735934 GUAIFENESIN- CODEINE Inactive VIIBRYD 40 MG TABS take 1 tab po qday for depression. VIIBRYD 40 MG TABS VILAZODONE HCL Inactive HYDRALAZINE HCL 25 MG TABS 1 tablet by mouth tid for hypertension HYDRALAZINE HCL 25 MG TABS 490784 HYDRALAZINE HCL Inactive SPIRONOLACTONE 50 MG TABS 1 tablet by mouth twice a day SPIRONOLACTONE 50 MG TABS 305885 SPIRONOLACTONE Inactive FENOFIBRATE 145 MG TABS Take one by mouth daily FENOFIBRATE 145 MG TABS 234198 FENOFIBRATE Inactive PROTONIX 40 MG SOLR 1 po qday for acid reflux PROTONIX 40 MG SOLR 914095 PANTOPRAZOLE SODIUM Inactive CEFDINIR 300 MG ORAL CAPS Take 1 cap po bid x 10 days CEFDINIR 300 MG ORAL CAPS 860997 CEFDINIR Inactive PREDNISONE 20 MG TAB 1 tablet twice daily for 2 days, then 1 tablet once daily for 2 days PREDNISONE 20 MG TAB 697158 PREDNISONE Inactive NYSTATIN 672201 UNIT/ML M/T SUSP 5mL po QID x 10 days NYSTATIN 677441 UNIT/ML M/T SUSP 645985 NYSTATIN Inactive BETADINE 10 % EXT SOLN 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 BETADINE 10 % EXT SOLN 0709222 POVIDONE-IODINE Inactive TRILEPTAL 150 MG ORAL TABS 1 TAB PO Q HS TRILEPTAL 150 MG ORAL TABS 394968 OXCARBAZEPINE Inactive LAMISIL 125 MG ORAL PACK 1 TAB PO DAILY LAMISIL 125 MG ORAL PACK TERBINAFINE HCL Inactive HYDROCHLOROTHIAZIDE TABS Take one by mouth daily HYDROCHLOROTHIAZIDE TABS HYDROCHLOROTHIAZIDE TABS Inactive HYDROCODONE-ACETAMINOPHEN 5-325 MG TABS 1 tab by mouth BID prn back pain 2013 HYDROCODONE-ACETAMINOPHEN 5-325 MG TABS 478054 HYDROCODONE -ACETAMINOPHEN Inactive HYDRALAZINE HCL 50 MG ORAL TABS TWO BY MOUTH THREE TIMES DAILY HYDRALAZINE HCL 50 MG ORAL TABS 675121 HYDRALAZINE HCL Inactive ZITHROMAX 250 MG TAB 2 po today, then 1 po q days 2-5 ZITHROMAX 250 MG TAB 4633655 AZITHROMYCIN Inactive TERBINAFINE HCL 250 MG TABS 1 tab po qday for foot infection 2014 TERBINAFINE HCL 250 MG TABS 184667 TERBINAFINE HCL Inactive KEFLEX 500 MG CAP 1 po TID x 10 days KEFLEX 500 MG CAP 206540 CEPHALEXIN Inactive BACTRIM DS 800-160 MG TAB 1 tab by mouth twice daily BACTRIM DS 800-160 MG TAB 176387 TRIMETHOPRIM-SULFAMETHOXAZOLE Inactive Advance Directives Directive Description Start [...] Acid - Chemistry sodium, serum 139 mmol/L 977-346 5583/04/22 carbon dioxide, venous blood 29.4 mmol/L 21.0-32.0 [...] urine 80 0-19 Lab Report: VITAMIN D, 25-HYDROXY/09803 - Chemistry vitamin D 25-hydroxy, serum 23 ng/mL 30-100 Encounters Code Encounter Date Provider Facility CPT-41618 Level 4 Est. 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 Patient 09:16:37 CDT Robbie Busby MD [facility] CPT-82266 Level 3 Est. Patient 19:38:43 CDT Robbie Busby MD [facility] CPT-26263 Level 3 Est. Patient 11:53:38 CDT Robbie Busby MD [facility] CPT-29295 Level 4 Est. Patient 12:52:22 CDT Rober Rodríguez [facility] CPT-77096 Level 4 Est. Patient 22:55:17 CDT Robbie Busby MD [facility] CPT-54236 Level 3 Est. Patient 12:38:24 CDT Desmond Diaz DO [facility] CPT-64739 Level 4 Est. Patient 11:25:03 ELEVATOR INSTALLER APPRENTICE Robbie Busby MD [facility] CPT-23911 Level 4 Est. Patient 14:50:10 CDT Robbie Busby MD [facility] CPT-14688 Level 4 Est. Patient 23:30:43 CDT Robbie Busby MD [facility] CPT-60611 Level 4 Est. Patient 10:30:43 CDT Robbie Busby MD [facility] CPT-28584 Level 3 Est. Patient 17:08:12 CDT Alex ALVAREZ [facility] CPT-50407 Level 4 Est. Patient 17:51:38 CDT Robbie Busby MD [facility] CPT-84731 Level 4 Est. Patient 14:00:21 CDT Robbie Busby MD [facility] CPT-07758 Level 4 Est. Patient 12:46:48 CDT Robbie Busby MD [facility] CPT-40703 Level 4 Est. Patient 13:34:33 CDT Robbie Busby MD [facility] CPT-10109 Level 4 Est. Patient 16:58:28 CDT Robbie Busby MD [facility] CPT-84089 Level 3 Est. Patient 19:36:53 CDT Alex ALVAREZ [facility] CPT-39057 Level 3 Est. Patient 12:58:15 CDT Robbie Busby MD [facility] Procedures Code Procedure Name Date Entry Date Standard Description CPT-J0696 Rocephin 1000 mg (Ceftriaxone) 17:43:43 ELEVATOR INSTALLER APPRENTICE CPT-J1040 Depo Medrol 80 mg (Methyl Prednisolone Acetate) 17:43: 43 ELEVATOR INSTALLER APPRENTICE CPT-J1100 Decadron 8mg (Dexamethasone) 17:43:42 ELEVATOR INSTALLER APPRENTICE CPT-49287 Abx/Therapy Injection 17:43:42 ELEVATOR INSTALLER APPRENTICE CPT-51105 Abx/Therapy Injection 17:43:42 ELEVATOR INSTALLER APPRENTICE CPT-J1040 Depo Medrol 80 mg (Methyl Prednisolone Acetate) 09:43: 34 ELEVATOR INSTALLER APPRENTICE CPT-J1100 Decadron 8mg (Dexamethasone) 09:43:34 ELEVATOR INSTALLER APPRENTICE CPT-J0696 Rocephin 1gm Inj Solr 09:43:34 ELEVATOR INSTALLER APPRENTICE CPT-29453 Wound Culture - LAB USE ONLY 14:00:21 CDT CPT-I/D I/D Abscess 09:16:37 CDT CPT-97757 Venipuncture Draw Fee 15:20:23 CDT CPT-66690 Microalbumin - LAB USE ONLY 16:02:19 CDT CPT-78576 CBC - LAB USE ONLY 16:02:19 CDT CPT-67707 Venipuncture Draw Fee 16:02:19 CDT CPT-G0438 Initial Annual Wellness Exam 08:10:28 CDT CPT-40729 Venipuncture Draw Fee 13:07:17 CDT CPT-G0008 Administration of Influenza Virus Vaccine 16:09:59 CDT CPT-66990 Fluzone Quadrivalent Intramuscular Suspension 0.5 ML 16: 09:59 CDT CPT-89518 Spec Collection and Handling Fee 15:05:50 CDT
--- OUTSIDE RECORDS SUMMARY | 2018-04-18 11:25 | XMS REPORT | Clinical Summary ---
Author Author Admin, AKUA Organization [employer] Address Unknown Phone Unavailable Allergies, Adverse [...] abscess of unspecified sites URI 465.9 Active Rboer Rodríguez [employer] Acute upper respiratory infections of unspecified site Hypertension 401.9 Active Rober Rodríguez APRN Unspecified essential hypertension Sinusitis - acute 461.9 Active Erin Garsia APRN Acute sinusitis, unspecified Acute confusion 293.0 Active Erin Garsia APRN Delirium due to conditions classified elsewhere Headache 784.0 Active Erin Garsia APRN Headache Back pain 724.5 Active Erin aGrsia APRN Backache, unspecified Back pain, thoracic region [...] Status Provider Patient Instruction GUAIFENESIN 600 MG [id number] 1 tab po q am GUAIFENESIN 18076312833 No Longer Active Robbie Busby MD Active DIVALPROEX SODIUM ER 500 MG ORAL TABLET EXTENDED RELEASE 24 HOUR Once daily DIVALPROEX SODIUM 53409843453 Active Robbie Busby MD Active DEPO-TESTOSTERONE 200 MG/ML IM SOLN 1 IM Injections every 2 weeks for low testosterone TESTOSTERONE CYPIONATE 75885307467 Active Zulema Blank LPN Active CYCLOBENZAPRINE HCL 10 MG ORAL TABS 1 po TID PRN muscle spasm/pain for 10 days CYCLOBENZAPRINE HCL 43953561022 Active JONATHAN Moncada Active FLUTICASONE PROPIONATE 50 MCG/ACT SUSP 2 sprays per nostril bid for 1 week, then 1 spray bid FLUTICASONE PROPIONATE 99700450084 Active Jillina Franeha [employer] Active HYDRALAZINE HCL 25 MG ORAL TABS Take 1 tab BID. HYDRALAZINE HCL 03883862981 Active Jillina Anne [employer] Active VITAMIN D3 90103 UNIT ORAL TABS 2 po weekly CHOLECALCIFEROL 06619973463 Active Robbie Busby MD Active OXYCODONE HCL ER 10 MG ORAL T12A 1 tab po 3 times qd. OXYCODONE HCL 15157033957 Active Robbie Busby MD Active NITROSTAT 0.4 MG SUBL PRN NITROGLYCERIN 27169356340 No Longer Active Robbie Busby MD Active LORATADINE 10 MG TABS 1 tablet by mouth daily for congestion and allergies. LORATADINE 39543720795 No Longer Active Robbie Busby MD Active FLONASE 50 MCG/ACT SUSP 1 spray each nostril twice daily for allergies and runny nose FLUTICASONE PROPIONATE 95591956168 No Longer Active Robbie Busby MD Active FIORICET 50-300-40 MG ORAL CAPS take 1 tab po qday prn migraines. [id number] 56298750050 No Longer Active Robbie Busby MD Active VITAMIN D3 58653 UNIT CAPS 2 CAPS PO WEEKLY CHOLECALCIFEROL 19327118585 No Longer Active Robbie Busby MD Active CYCLOBENZAPRINE HCL 10 MG TABS 1 tablet by mouth three times daily as needed for muscle spasm/pain for 10 days CYCLOBENZAPRINE HCL 73989907454 No Longer Active Robbie Busby MD Active PREDNISONE 20 MG TAB take 3 tabs daily for 3 days, 2 tabs daily for 3 days, 1 tab daily for 3 days, 1/2 tab daily for 4 days PREDNISONE 46779795574 No Longer Active Erin Garsia APRN Active CLONIDINE HCL 0.2 MG ORAL TABS 1 TAB BY MOUTH EVERY 8 HOURS 12/29 CLONIDINE HCL 31577585828 No Longer Active Erin Garsia APRN Active MECLIZINE HCL 25 MG TAB one 4 times a day as needed for dizziness MECLIZINE HCL 47920620003 No Longer Active Erin Garsia APRN Active SPIRONOLACTONE 25 MG TAB 4 tablets by mouth daily SPIRONOLACTONE 34089336337 No Longer Active Erin Garsia APRN Active LEVAQUIN 500 MG TAB 1 tablet by mouth daily for 7 days LEVOFLOXACIN 40922948725 No Longer Active Erin Garsia APRN Active BACTRIM DS 800-160 MG TAB 1 tab by mouth twice daily TRIMETHOPRIM-SULFAMETHOXAZOLE 73185327223 No Longer Active Robbie Busby MD Active HYDRALAZINE HCL 50 MG ORAL TABS TWO BY MOUTH THREE TIMES DAILY HYDRALAZINE HCL 88163658615 No Longer Active Jillld Rodríguez APRN Active HYDROCODONE-ACETAMINOPHEN 5-325 MG TABS 1 tab by mouth BID prn back pain 2013 HYDROCODONE-ACETAMINOPHEN 30904214652 No Longer Active Jillina Zulemal [employer] Active HYDROCHLOROTHIAZIDE TABS Take one by mouth daily HYDROCHLOROTHIAZIDE TABS 13779804139 No Longer Active Jillina Frakierstenl [employer] Active LAMISIL 125 MG ORAL PACK 1 TAB PO DAILY TERBINAFINE HCL 20206228424 No Longer Active Jillina Frakierstenl [employer] Active TRILEPTAL 150 MG ORAL TABS 1 TAB PO Q HS OXCARBAZEPINE 06052677615 No Longer Active Jillina Frakierstenl [employer] Active BETADINE 10 % EXT SOLN 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 POVIDONE-IODINE 14251530204 No Longer Active Rober Rodríguez APRN Active NYSTATIN 741906 UNIT/ML M/T SUSP 5mL po QID x 10 days NYSTATIN 64308438300 No Longer Active Erin Garsia APRN Active PREDNISONE 20 MG TAB 1 tablet twice daily for 2 days, then 1 tablet once daily for 2 days PREDNISONE 73393869371 No Longer Active Robbie Busby MD Active CEFDINIR 300 MG ORAL CAPS Take 1 cap po bid x 10 days CEFDINIR 53121453067 No Longer Active Robbie Busby MD Active AMLODIPINE BESYLATE 10 MG TABS 1 tablet by mouth daily AMLODIPINE BESYLATE 90330850796 Active Robbie Busby MD Active CARVEDILOL 25 MG TABS 1 & 1/2 TAB po BID CARVEDILOL 65232512283 Active Robbie Busby MD Active NEXIUM 40 MG CPDR 1 cap by mouth daily ESOMEPRAZOLE MAGNESIUM 03948180814 Active Robbie Busby MD Active PROTONIX 40 MG SOLR 1 po qday for acid reflux PANTOPRAZOLE SODIUM 50201061559 No Longer Active Gali Raida Active KEFLEX 500 MG CAP 1 po TID x 10 days CEPHALEXIN 87141516717 No Longer Active Robbie Busby MD Active TOPIRAMATE 50 MG ORAL TABS take 1 tab po BID for migraines. TOPIRAMATE 25851588668 Active Robbie Busby MD Active TEMAZEPAM 15 MG ORAL CAPS 1 TAB PO Q HS TEMAZEPAM 15040794242 Active Robbie Busby MD Active ALPRAZOLAM 2 MG ORAL TABS 1 TAB PO BID ALPRAZOLAM 38710653958 Active Robbie Busby MD Active FENOFIBRATE 145 MG TABS Take one by mouth daily FENOFIBRATE 77263903711 No Longer Active Robbie Busby MD Active SPIRONOLACTONE 50 MG TABS 1 tablet by mouth twice a day SPIRONOLACTONE 11758910919 No Longer Active Robbie Busby MD Active HYDRALAZINE HCL 25 MG TABS 1 tablet by mouth tid for hypertension HYDRALAZINE HCL 91199438209 No Longer Active Robbie Busby MD Active VIIBRYD 40 MG TABS take 1 tab po qday for depression. VILAZODONE HCL 40066409746 No Longer Active Robbie Busby MD Active TERBINAFINE HCL 250 MG TABS 1 tab po qday for foot infection 2014 TERBINAFINE HCL 86129815067 No Longer Active Robbie Busby MD Active GABAPENTIN 300 MG CAPS 1 po q hs for nerve pain GABAPENTIN 05936692604 Active Robbie Busby MD Active CHERATUSSIN AC 100-10 MG/5ML ORAL SOLN 7.5 mL PO q 4-6 hrs PRN cough GUAIFENESIN-CODEINE 35093338845 No Longer Active Robbie Busby MD Active AZITHROMYCIN 250 MG ORAL TABS 2 tablets PO today---then, 1 tablet PO daily x 4 more days (and 1 optional refill) AZITHROMYCIN 90307870609 No Longer Active Robbie Busby MD Active NORVASC 10 MG TAB 1 tablet by mouth daily AMLODIPINE BESYLATE 55110186746 No Longer Active Alex ALVAREZ Active IMDUR 60 MG TAB CR take 1 tab po qday for blood pressure ISOSORBIDE MONONITRATE Active Robbie Busby MD Active ISOSORBIDE DINITRATE 30 MG TABS Take one by mouth daily ISOSORBIDE DINITRATE 56036501473 No Longer Active Robbie Busby MD Active VIIBRYD 40 MG TABS 1 TA B PO DAILY VILAZODONE HCL 52104214879 Active Robbie Busby MD Active ZITHROMAX 250 MG TAB 2 po today, then 1 po q days 2-5 AZITHROMYCIN 84069278666 No Longer Active Robbie Busby MD Active [id number] 0.3 MG/24HR PTWK apply 2 patches q week for HTN CLONIDINE HCL 09116504914 Active Robbie Busby MD Active DOXAZOSIN MESYLATE 4 MG TABS Take one by mouth daily DOXAZOSIN MESYLATE 42928220414 Active Robbie Busby MD Active TOPROL XL 200 MG [id number] Take one by mouth daily METOPROLOL SUCCINATE 50161600094 Active Robbie Busby MD Active VENLAFAXINE HCL ER 150 MG [id number] Take one by mouth daily VENLAFAXINE HCL 00426600745 Active Robbie Busby MD Active LIPITOR 40 MG TABS Take one by mouth daily ATORVASTATIN CALCIUM 03214126503 Active Robbie Busby MD Active ISOSORBIDE DINITRATE 30 MG TABS Take one by mouth daily ISOSORBIDE DINITRATE 30 MG TABS 938509 ISOSORBIDE DINITRATE Inactive NORVASC 10 MG TAB 1 tablet by mouth daily NORVASC 10 MG TAB 903392 AMLODIPINE BESYLATE Inactive AZITHROMYCIN 250 MG ORAL TABS 2 tablets PO today---then, 1 tablet PO daily x 4 more days (and 1 optional refill) AZITHROMYCIN 250 MG ORAL TABS 053378 AZITHROMYCIN Inactive CHERATUSSIN AC 100-10 MG/5ML ORAL SOLN 7.5 mL PO q 4-6 hrs PRN cough CHERATUSSIN AC 100-10 MG/5ML ORAL SOLN 833912 GUAIFENESIN- CODEINE Inactive VIIBRYD 40 MG TABS take 1 tab po qday for depression. VIIBRYD 40 MG TABS VILAZODONE HCL Inactive HYDRALAZINE HCL 25 MG TABS 1 tablet by mouth tid for hypertension HYDRALAZINE HCL 25 MG TABS 990924 HYDRALAZINE HCL Inactive SPIRONOLACTONE 50 MG TABS 1 tablet by mouth twice a day SPIRONOLACTONE 50 MG TABS 218830 SPIRONOLACTONE Inactive FENOFIBRATE 145 MG TABS Take one by mouth daily FENOFIBRATE 145 MG TABS 212436 FENOFIBRATE Inactive PROTONIX 40 MG SOLR 1 po qday for acid reflux PROTONIX 40 MG SOLR 396167 PANTOPRAZOLE SODIUM Inactive CEFDINIR 300 MG ORAL CAPS Take 1 cap po bid x 10 days CEFDINIR 300 MG ORAL CAPS 163151 CEFDINIR Inactive PREDNISONE 20 MG TAB 1 tablet twice daily for 2 days, then 1 tablet once daily for 2 days PREDNISONE 20 MG TAB 048276 PREDNISONE Inactive NYSTATIN 578300 UNIT/ML M/T SUSP 5mL po QID x 10 days NYSTATIN 074744 UNIT/ML M/T SUSP 804608 NYSTATIN Inactive BETADINE 10 % EXT SOLN 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 BETADINE 10 % EXT SOLN 1590470 POVIDONE-IODINE Inactive TRILEPTAL 150 MG ORAL TABS 1 TAB PO Q HS TRILEPTAL 150 MG ORAL TABS 057629 OXCARBAZEPINE Inactive LAMISIL 125 MG ORAL PACK 1 TAB PO DAILY LAMISIL 125 MG ORAL PACK TERBINAFINE HCL Inactive HYDROCHLOROTHIAZIDE TABS Take one by mouth daily HYDROCHLOROTHIAZIDE TABS HYDROCHLOROTHIAZIDE TABS Inactive HYDROCODONE-ACETAMINOPHEN 5-325 MG TABS 1 tab by mouth BID prn back pain 2013 HYDROCODONE-ACETAMINOPHEN 5-325 MG TABS 765533 HYDROCODONE -ACETAMINOPHEN Inactive HYDRALAZINE HCL 50 MG ORAL TABS TWO BY MOUTH THREE TIMES DAILY HYDRALAZINE HCL 50 MG ORAL TABS 925089 HYDRALAZINE HCL Inactive LEVAQUIN 500 MG TAB 1 tablet by mouth daily for 7 days LEVAQUIN 500 MG TAB 118280 LEVOFLOXACIN Inactive SPIRONOLACTONE 25 MG TAB 4 tablets by mouth daily SPIRONOLACTONE 25 MG TAB 476470 SPIRONOLACTONE Inactive MECLIZINE HCL 25 MG TAB one 4 times a day as needed for dizziness MECLIZINE HCL 25 MG TAB 698664 MECLIZINE HCL Inactive CLONIDINE HCL 0.2 MG ORAL TABS 1 TAB BY MOUTH EVERY 8 HOURS 12/29 CLONIDINE HCL 0.2 MG ORAL TABS 093896 CLONIDINE HCL Inactive CYCLOBENZAPRINE HCL 10 MG TABS 1 tablet by mouth three times daily as needed for muscle spasm/pain for 10 days CYCLOBENZAPRINE HCL 10 MG TABS 911242 CYCLOBENZAPRINE HCL Inactive VITAMIN D3 59281 UNIT CAPS 2 CAPS PO WEEKLY VITAMIN D3 51171 UNIT CAPS CHOLECALCIFEROL Inactive FIORICET 50-300-40 MG ORAL CAPS take 1 tab po qday prn migraines. FIORICET 50-300-40 MG ORAL CAPS 700302 [id number] Inactive FLONASE 50 MCG/ACT SUSP 1 spray each nostril twice daily for allergies and runny nose FLONASE 50 MCG/ACT SUSP 6237356 FLUTICASONE PROPIONATE Inactive LORATADINE 10 MG TABS 1 tablet by mouth daily for congestion and allergies. LORATADINE 10 MG TABS 218695 LORATADINE Inactive NITROSTAT 0.4 MG SUBL PRN NITROSTAT 0.4 MG SUBL 670426 NITROGLYCERIN Inactive GUAIFENESIN 600 MG [id number] 1 tab po q am GUAIFENESIN 600 MG [id number] GUAIFENESIN Inactive ZITHROMAX 250 MG TAB 2 po today, then 1 po q days 2-5 ZITHROMAX 250 MG TAB 009326 AZITHROMYCIN Inactive TERBINAFINE HCL 250 MG TABS 1 tab po qday for foot infection 2014 TERBINAFINE HCL 250 MG TABS 834273 TERBINAFINE HCL Inactive KEFLEX 500 MG CAP 1 po TID x 10 days KEFLEX 500 MG CAP 323545 CEPHALEXIN Inactive BACTRIM DS 800-160 MG TAB 1 tab by mouth twice daily BACTRIM DS 800-160 MG TAB 676069 TRIMETHOPRIM-SULFAMETHOXAZOLE Inactive PREDNISONE 20 MG TAB take 3 tabs daily for 3 days, 2 tabs daily for 3 days, 1 tab daily for 3 days, 1/2 tab daily for 4 days PREDNISONE 20 MG TAB 597004 PREDNISONE Inactive Advance Directives Directive Description Start [...] AUTO - Chemistry sodium, serum 142 mmol/L 067-978 3906/07/17 carbon dioxide, venous blood 28.2 mmol/L 21.0-32.0 [...] % 11.0-15.0 platelet count 185 THOUSAND/UL 10*3/mm3 128-678 6253/04/14 mean platelet volume 10.9 fL 7.5-12.5 Lab Report: LIPID PANEL, TSH/899, T4, FREE/866 - Chemistry cholesterol, serum 220 mg/dL 379-644 2877/04/14 HDL cholesterol, serum 30 mg/dL > OR=40 [...] 1.80 ng/mL 0.00-4.00 Lab Report: VITAMIN D, 25-HYDROXY/31026 - Chemistry vitamin D 25-hydroxy, serum 25 ng/mL 30-100 Office Visit: Confusion, dizziness after fall - Basic LDL target level 130 mg/dL Office Visit: Confusion, dizziness after fall - Chemistry HDL cholesterol, serum, target level 40 mg/dL triglyceride, target level 150 mg/dL cholesterol, target level 200 mg/dL Encounters Code Encounter Date Provider Facility CPT-66167 Level 3 Est. Patient 15:40:49 CDT Robbie Busby MD [facility] CPT-61006 Level 4 Est. Patient 15:18:19 CDT Robbie Busby MD [facility] CPT-75471 Level 3 Est. Patient 09:00:37 CDT Rober Rodríguez [facility] CPT-13802 Level 3 Est. Patient 16:07:10 CDT Robbie Busby MD [facility] CPT-86232 Level 4 Est. Patient 11:56:16 CDT Erin Garsia [facility] CPT-64215 Level 3 Est. Patient 17:48:02 CDT Robbie Busby MD [facility] CPT-53576 Level 4 Est. Patient 12:00:49 ANESTHESIA RESIDENT Rober Rodríguez [facility] CPT-25391 Level 3 Est. Patient 09:16:37 CDT Robbie Busby MD [facility] CPT-70993 Level 3 Est. Patient 19:38:43 CDT Robbie Busby MD [facility] CPT-46224 Level 3 Est. Patient 11:53:38 CDT Robbie Busby MD [facility] CPT-05590 Level 4 Est. Patient 12:52:22 CDT Rober Rodríguez [facility] CPT-62788 Level 4 Est. Patient 22:55:17 CDT Robbie Busby MD [facility] CPT-67027 Level 3 Est. Patient 12:38:24 CDT Desmond Diaz DO [facility] CPT-67671 Level 4 Est. Patient 11:25:03 ANESTHESIA RESIDENT Robbie Busby MD [facility] CPT-03481 Level 4 Est. Patient 14:50:10 CDT Robbie Busby MD [facility] CPT-71614 Level 4 Est. Patient 23:30:43 CDT Robbie Busby MD [facility] CPT-15060 Level 4 Est. Patient 10:30:43 CDT Robbie Busby MD [facility] CPT-26677 Level 3 Est. Patient 17:08:12 CDT Alex ALVAREZ [facility] CPT-12563 Level 4 Est. Patient 17:51:38 CDT Robbie Busby MD [facility] CPT-52118 Level 4 Est. Patient 14:00:21 CDT Robbie Busby MD [facility] CPT-69538 Level 4 Est. Patient 12:46:48 CDT Robbie Busby MD [facility] CPT-57543 Level 4 Est. Patient 13:34:33 CDT Robbie Busby MD [facility] CPT-06392 Level 4 Est. Patient 16:58:28 CDT Robbie Busby MD [facility] CPT-01415 Level 3 Est. Patient 19:36:53 CDT Alex ALVAREZ [facility] CPT-92802 Level 3 Est. Patient 12:58:15 CDT Robbie Busby MD [facility] Procedures Code Procedure Name Date Entry Date Standard Description CPT-J1071 Depo Testosterone 200mg 14:20:43 CDT CPT-43363 Abx/Therapy Injection 14:20:43 CDT CPT-J1071 Depo Testosterone 200mg 14:17:22 CDT CPT-71770 Abx/Therapy Injection 14:17:22 CDT CPT-J1071 Depo Testosterone 200mg 09:03:53 CDT CPT-13507 Abx/Therapy Injection 09:03:53 CDT CPT-G0439 [facility] Annual Wellness Exam 16:47:44 CDT CPT-J1071 Depo Testosterone 200mg 09:06:28 CDT CPT-35245 Abx/Therapy Injection 09:06:28 CDT CPT-J1071 Depo Testosterone 200mg 08:30:01 CDT CPT-81350 Abx/Therapy Injection 08:30:01 CDT CPT-J1071 Depo Testosterone 200mg 08:24:00 CDT CPT-38005 Abx/Therapy Injection 08:24:00 CDT CPT-36803 Venipuncture Draw Fee 14:39:06 CDT CPT-46826 Ribs unilateral 2V - XRAY USE ONLY 12:10:11 CDT CPT-17351 First Vx - Ix admin for Medicare patients 16:32:53 CDT CPT-92323 Boostrix Intramuscular Suspension 5-2.5-18.5 16:32:53 CDT CPT-00864 TB Skin Test 11:42:28 CDT CPT-85448 Tdap 7yrs or > 11:42:28 CDT CPT-J0696 Rocephin 1000 mg (Ceftriaxone) 17:43:43 ANESTHESIA RESIDENT CPT-J1040 Depo Medrol 80 mg (Methyl Prednisolone Acetate) 17:43: 43 ANESTHESIA RESIDENT CPT-J1100 Decadron 8mg (Dexamethasone) 17:43:42 ANESTHESIA RESIDENT CPT-79554 Abx/Therapy Injection 17:43:42 ANESTHESIA RESIDENT CPT-76343 Abx/Therapy Injection 17:43:42 ANESTHESIA RESIDENT CPT-J1040 Depo Medrol 80 mg (Methyl Prednisolone Acetate) 09:43: 34 ANESTHESIA RESIDENT CPT-J1100 Decadron 8mg (Dexamethasone) 09:43:34 ANESTHESIA RESIDENT CPT-J0696 Rocephin 1gm Inj Solr 09:43:34 ANESTHESIA RESIDENT CPT-29837 Wound Culture - LAB USE ONLY 14:00:21 CDT CPT-I/D I/D Abscess 09:16:37 CDT CPT-08828 Venipuncture Draw Fee 15:20:23 CDT CPT-20509 Microalbumin - LAB USE ONLY 16:02:19 CDT CPT-98761 CBC - LAB USE ONLY 16:02:19 CDT CPT-77114 Venipuncture Draw Fee 16:02:19 CDT CPT-G0438 Initial Annual Wellness Exam 08:10:28 CDT CPT-98049 Venipuncture Draw Fee 13:07:17 CDT CPT-G0008 Administration of Influenza Virus Vaccine 16:09:59 CDT CPT-89180 Fluzone Quadrivalent Intramuscular Suspension 0.5 ML 16: 09:59 CDT CPT-09202 Spec Collection and Handling Fee 15:05:50 CDT
--- OUTSIDE RECORDS SUMMARY | 2018-04-18 11:26 | XMS REPORT | Clinical Summary ---
Author Author Admin, [facility] Organization [facility] Address Unknown Phone Unavailable Allergies, Adverse Reactions, [...] 2 weeks for low testosterone TESTOSTERONE CYPIONATE 52814772212 Active Zulema Blank LPN Active CYCLOBENZAPRINE HCL 10 MG ORAL TABS 1 po TID PRN muscle spasm/pain for 10 days CYCLOBENZAPRINE HCL 73123237388 Active JONATHAN Moncada Active GUAIFENESIN 600 MG [id number] 1 tab po q am GUAIFENESIN 95678763027 Active Rober Rodríguez [employer]ATFORM LOADER Active FLUTICASONE PROPIONATE 50 MCG/ACT SUSP 2 sprays per nostril bid for 1 week, then 1 spray bid FLUTICASONE PROPIONATE 37986568708 Active Jishantel Rodríguez APRN Active HYDRALAZINE HCL 25 MG ORAL TABS Take 1 tab BID. HYDRALAZINE HCL 11596879069 Active Rober Rodríguez APRN Active VITAMIN D3 77258 UNIT ORAL TABS 2 po weekly CHOLECALCIFEROL 30997986696 Active JONATHAN Moncada Active OXYCODONE HCL ER 10 MG ORAL T12A 1 tab po 3 times qd. OXYCODONE HCL 74680032483 Active Robbie Busby MD Active NITROSTAT 0.4 MG SUBL PRN NITROGLYCERIN 49178986401 No Longer Active Robbie Busby MD Active LORATADINE 10 MG TABS 1 tablet by mouth daily for congestion and allergies. LORATADINE 49799685795 No Longer Active Robbie Busby MD Active FLONASE 50 MCG/ACT SUSP 1 spray each nostril twice daily for allergies and runny nose FLUTICASONE PROPIONATE 29146772185 No Longer Active Robbie Busby MD Active FIORICET 50-300-40 MG ORAL CAPS take 1 tab po qday prn migraines. [id number] 74226558967 No Longer Active Robbie Busby MD Active VITAMIN D3 74445 UNIT CAPS 2 CAPS PO WEEKLY CHOLECALCIFEROL 40955490341 No Longer Active Robbie Busby MD Active CYCLOBENZAPRINE HCL 10 MG TABS 1 tablet by mouth three times daily as needed for muscle spasm/pain for 10 days CYCLOBENZAPRINE HCL 73232866529 No Longer Active Robbie Busby MD Active PREDNISONE 20 MG TAB take 3 tabs daily for 3 days, 2 tabs daily for 3 days, 1 tab daily for 3 days, 1/2 tab daily for 4 days PREDNISONE 91813880635 No Longer Active Erin Garsia APRN Active CLONIDINE HCL 0.2 MG ORAL TABS 1 TAB BY MOUTH EVERY 8 HOURS 12/29 CLONIDINE HCL 24070830876 No Longer Active Erin Garsia APRN Active MECLIZINE HCL 25 MG TAB one 4 times a day as needed for dizziness MECLIZINE HCL 23707849868 No Longer Active Erin Garsia APRN Active SPIRONOLACTONE 25 MG TAB 4 tablets by mouth daily SPIRONOLACTONE 87963073267 No Longer Active Erin Garsia APRN Active LEVAQUIN 500 MG TAB 1 tablet by mouth daily for 7 days LEVOFLOXACIN 93375210081 No Longer Active Erin Garsia APRN Active BACTRIM DS 800-160 MG TAB 1 tab by mouth twice daily TRIMETHOPRIM-SULFAMETHOXAZOLE 37184504966 No Longer Active Robbie Busby MD Active HYDRALAZINE HCL 50 MG ORAL TABS TWO BY MOUTH THREE TIMES DAILY HYDRALAZINE HCL 74925855447 No Longer Active Jillina Frakierstenl PLATFORM LOADER Active HYDROCODONE-ACETAMINOPHEN 5-325 MG TABS 1 tab by mouth BID prn back pain 2013 HYDROCODONE-ACETAMINOPHEN 71081073666 No Longer Active Jillina Frazell PLATFORM LOADER Active HYDROCHLOROTHIAZIDE TABS Take one by mouth daily HYDROCHLOROTHIAZIDE TABS 87402278367 No Longer Active Jillina Frazell PLATFORM LOADER Active LAMISIL 125 MG ORAL PACK 1 TAB PO DAILY TERBINAFINE HCL 80677995976 No Longer Active Jillina Frazell PLATFORM LOADER Active TRILEPTAL 150 MG ORAL TABS 1 TAB PO Q HS OXCARBAZEPINE 40908196319 No Longer Active Jillina Frazell PLATFORM LOADER Active BETADINE 10 % EXT SOLN 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 POVIDONE-IODINE 12428409142 No Longer Active Jillina Frazell PLATFORM LOADER Active NYSTATIN 918955 UNIT/ML M/T SUSP 5mL po QID x 10 days NYSTATIN 71055941600 No Longer Active Erin Garsia APRN Active PREDNISONE 20 MG TAB 1 tablet twice daily for 2 days, then 1 tablet once daily for 2 days PREDNISONE 55943461598 No Longer Active Robbie Busby MD Active CEFDINIR 300 MG ORAL CAPS Take 1 cap po bid x 10 days CEFDINIR 16495804221 No Longer Active Robbie Busby MD Active AMLODIPINE BESYLATE 10 MG TABS 1 tablet by mouth daily AMLODIPINE BESYLATE 42721552669 Active Robbie Busby MD Active CARVEDILOL 25 MG TABS 1 & 1/2 TAB po BID CARVEDILOL 15008830584 Active Robbie Busby MD Active NEXIUM 40 MG CPDR 1 cap by mouth daily ESOMEPRAZOLE MAGNESIUM 28204503346 Active Robbie Busby MD Active PROTONIX 40 MG SOLR 1 po qday for acid reflux PANTOPRAZOLE SODIUM 46398605526 No Longer Active Gali Raida Active KEFLEX 500 MG CAP 1 po TID x 10 days CEPHALEXIN 29448303850 No Longer Active Robbie Busby MD Active TOPIRAMATE 50 MG ORAL TABS take 1 tab po BID for migraines. TOPIRAMATE 37571904667 Active Robbie Busby MD Active TEMAZEPAM 15 MG ORAL CAPS 1 TAB PO Q HS TEMAZEPAM 62640249615 Active Robbie Busby MD Active ALPRAZOLAM 2 MG ORAL TABS 1 TAB PO BID ALPRAZOLAM 68326471611 Active Robbie Busby MD Active FENOFIBRATE 145 MG TABS Take one by mouth daily FENOFIBRATE 52454391427 No Longer Active Robbie Busby MD Active SPIRONOLACTONE 50 MG TABS 1 tablet by mouth twice a day SPIRONOLACTONE 39760887145 No Longer Active Robbie Busby MD Active HYDRALAZINE HCL 25 MG TABS 1 tablet by mouth tid for hypertension HYDRALAZINE HCL 61881840833 No Longer Active Robbie Busby MD Active VIIBRYD 40 MG TABS take 1 tab po qday for depression. VILAZODONE HCL 14676141865 No Longer Active Robbie Busby MD Active TERBINAFINE HCL 250 MG TABS 1 tab po qday for foot infection 2014 TERBINAFINE HCL 80980245568 No Longer Active Robbie Busby MD Active GABAPENTIN 300 MG CAPS 1 po q hs for nerve pain GABAPENTIN 80948193355 Active Robbie Busby MD Active CHERATUSSIN AC 100-10 MG/5ML ORAL SOLN 7.5 mL PO q 4-6 hrs PRN cough GUAIFENESIN-CODEINE 79859811389 No Longer Active Robbie Busby MD Active AZITHROMYCIN 250 MG ORAL TABS 2 tablets PO today---then, 1 tablet PO daily x 4 more days (and 1 optional refill) AZITHROMYCIN 94301931745 No Longer Active Robbie Busby MD Active NORVASC 10 MG TAB 1 tablet by mouth daily AMLODIPINE BESYLATE 28043773735 No Longer Active Alex ALVAREZ Active IMDUR 60 MG TAB CR take 1 tab po qday for blood pressure ISOSORBIDE MONONITRATE Active Robbie Busby MD Active ISOSORBIDE DINITRATE 30 MG TABS Take one by mouth daily ISOSORBIDE DINITRATE 83188586479 No Longer Active Robbie Busby MD Active VIIBRYD 40 MG TABS 1 TA B PO DAILY VILAZODONE HCL 95974345123 Active Robbie Busby MD Active ZITHROMAX 250 MG TAB 2 po today, then 1 po q days 2-5 AZITHROMYCIN 78608315183 No Longer Active Robbie Busby MD Active [id number] 0.3 MG/24HR PTWK apply 2 patches q week for HTN CLONIDINE HCL 73352124035 Active Robbie Busby MD Active DOXAZOSIN MESYLATE 4 MG TABS Take one by mouth daily DOXAZOSIN MESYLATE 78192101597 Active Robbie Busby MD Active TOPROL XL 200 MG [id number] Take one by mouth daily METOPROLOL SUCCINATE 26286775256 Active Robbie Busby MD Active VENLAFAXINE HCL ER 150 MG [id number] Take one by mouth daily VENLAFAXINE HCL 35094935184 Active Robbie Busby MD Active LIPITOR 40 MG TABS Take one by mouth daily ATORVASTATIN CALCIUM 68920976852 Active Robbie Busby MD Active ISOSORBIDE DINITRATE 30 MG TABS Take one by mouth daily ISOSORBIDE DINITRATE 30 MG TABS 182231 ISOSORBIDE DINITRATE Inactive NORVASC 10 MG TAB 1 tablet by mouth daily NORVASC 10 MG TAB 521652 AMLODIPINE BESYLATE Inactive AZITHROMYCIN 250 MG ORAL TABS 2 tablets PO today---then, 1 tablet PO daily x 4 more days (and 1 optional refill) AZITHROMYCIN 250 MG ORAL TABS 4404230 AZITHROMYCIN Inactive CHERATUSSIN AC 100-10 MG/5ML ORAL SOLN 7.5 mL PO q 4-6 hrs PRN cough CHERATUSSIN AC 100-10 MG/5ML ORAL SOLN 331518 GUAIFENESIN- CODEINE Inactive VIIBRYD 40 MG TABS take 1 tab po qday for depression. VIIBRYD 40 MG TABS VILAZODONE HCL Inactive HYDRALAZINE HCL 25 MG TABS 1 tablet by mouth tid for hypertension HYDRALAZINE HCL 25 MG TABS 267595 HYDRALAZINE HCL Inactive SPIRONOLACTONE 50 MG TABS 1 tablet by mouth twice a day SPIRONOLACTONE 50 MG TABS 231887 SPIRONOLACTONE Inactive FENOFIBRATE 145 MG TABS Take one by mouth daily FENOFIBRATE 145 MG TABS 722140 FENOFIBRATE Inactive PROTONIX 40 MG SOLR 1 po qday for acid reflux PROTONIX 40 MG SOLR 527771 PANTOPRAZOLE SODIUM Inactive CEFDINIR 300 MG ORAL CAPS Take 1 cap po bid x 10 days CEFDINIR 300 MG ORAL CAPS 411931 CEFDINIR Inactive PREDNISONE 20 MG TAB 1 tablet twice daily for 2 days, then 1 tablet once daily for 2 days PREDNISONE 20 MG TAB 495358 PREDNISONE Inactive NYSTATIN 257194 UNIT/ML M/T SUSP 5mL po QID x 10 days NYSTATIN 587609 UNIT/ML M/T SUSP 538105 NYSTATIN Inactive BETADINE 10 % EXT SOLN 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 BETADINE 10 % EXT SOLN 8619721 POVIDONE-IODINE Inactive TRILEPTAL 150 MG ORAL TABS 1 TAB PO Q HS TRILEPTAL 150 MG ORAL TABS 655886 OXCARBAZEPINE Inactive LAMISIL 125 MG ORAL PACK 1 TAB PO DAILY LAMISIL 125 MG ORAL PACK TERBINAFINE HCL Inactive HYDROCHLOROTHIAZIDE TABS Take one by mouth daily HYDROCHLOROTHIAZIDE TABS HYDROCHLOROTHIAZIDE TABS Inactive HYDROCODONE-ACETAMINOPHEN 5-325 MG TABS 1 tab by mouth BID prn back pain 2013 HYDROCODONE-ACETAMINOPHEN 5-325 MG TABS 095790 HYDROCODONE -ACETAMINOPHEN Inactive HYDRALAZINE HCL 50 MG ORAL TABS TWO BY MOUTH THREE TIMES DAILY HYDRALAZINE HCL 50 MG ORAL TABS 053258 HYDRALAZINE HCL Inactive LEVAQUIN 500 MG TAB 1 tablet by mouth daily for 7 days LEVAQUIN 500 MG TAB 145729 LEVOFLOXACIN Inactive SPIRONOLACTONE 25 MG TAB 4 tablets by mouth daily SPIRONOLACTONE 25 MG TAB 833908 SPIRONOLACTONE Inactive MECLIZINE HCL 25 MG TAB one 4 times a day as needed for dizziness MECLIZINE HCL 25 MG TAB 362721 MECLIZINE HCL Inactive CLONIDINE HCL 0.2 MG ORAL TABS 1 TAB BY MOUTH EVERY 8 HOURS 12/29 CLONIDINE HCL 0.2 MG ORAL TABS 450186 CLONIDINE HCL Inactive CYCLOBENZAPRINE HCL 10 MG TABS 1 tablet by mouth three times daily as needed for muscle spasm/pain for 10 days CYCLOBENZAPRINE HCL 10 MG TABS 216911 CYCLOBENZAPRINE HCL Inactive VITAMIN D3 47143 UNIT CAPS 2 CAPS PO WEEKLY VITAMIN D3 00717 UNIT CAPS CHOLECALCIFEROL Inactive FIORICET 50-300-40 MG ORAL CAPS take 1 tab po qday prn migraines. FIORICET 50-300-40 MG ORAL CAPS 348376 [id number] Inactive FLONASE 50 MCG/ACT SUSP 1 spray each nostril twice daily for allergies and runny nose FLONASE 50 MCG/ACT SUSP 5885042 FLUTICASONE PROPIONATE Inactive LORATADINE 10 MG TABS 1 tablet by mouth daily for congestion and allergies. LORATADINE 10 MG TABS 602615 LORATADINE Inactive NITROSTAT 0.4 MG SUBL PRN NITROSTAT 0.4 MG SUBL 907985 NITROGLYCERIN Inactive ZITHROMAX 250 MG TAB 2 po today, then 1 po q days 2-5 ZITHROMAX 250 MG TAB 8635100 AZITHROMYCIN Inactive TERBINAFINE HCL 250 MG TABS 1 tab po qday for foot infection 2014 TERBINAFINE HCL 250 MG TABS 857510 TERBINAFINE HCL Inactive KEFLEX 500 MG CAP 1 po TID x 10 days KEFLEX 500 MG CAP 654765 CEPHALEXIN Inactive BACTRIM DS 800-160 MG TAB 1 tab by mouth twice daily BACTRIM DS 800-160 MG TAB 584511 TRIMETHOPRIM-SULFAMETHOXAZOLE Inactive PREDNISONE 20 MG TAB take 3 tabs daily for 3 days, 2 tabs daily for 3 days, 1 tab daily for 3 days, 1/2 tab daily for 4 days PREDNISONE 20 MG TAB 144758 PREDNISONE Inactive Advance Directives Directive Description Start [...] AUTO - Chemistry sodium, serum 142 mmol/L 438-967 9716/07/17 carbon dioxide, venous blood 28.2 mmol/L 21.0-32.0 [...] % 11.0-15.0 platelet count 185 THOUSAND/UL 10*3/mm3 108-141 9188/04/14 mean platelet volume 10.9 fL 7.5-12.5 Lab Report: LIPID PANEL, TSH/899, T4, FREE/866 - Chemistry cholesterol, serum 220 mg/dL 744-057 5575/04/14 HDL cholesterol, serum 30 mg/dL > OR=40 triglyceride, serum, fasting 466 mg/dL <150 LDL cholesterol, serum SEE NOTE mg/dL (calc) mg/dL <130 cholesterol/HDL ratio, serum 7.3 (calc) < OR=5.0 Lab Report: MICROALB/CREAT W/RATIO - Chemistry albumin/creatinine ratio, urine < 30 mg/g mg/g{creat} 0-29 Lab Report: MICROALB/CREAT W/RATIO - Lab microalbumin, urine 80 0-19 Lab Report: VITAMIN D, 25-HYDROXY/82253 - Chemistry vitamin D 25-hydroxy, serum 25 ng/mL 30-100 Office Visit: Confusion, dizziness after fall - Basic LDL target level 130 mg/dL Office Visit: Confusion, dizziness after fall - Chemistry HDL cholesterol, serum, target level 40 mg/dL triglyceride, target level 150 mg/dL cholesterol, target level 200 mg/dL Encounters Code Encounter Date Provider Facility CPT-90715 Level 3 Est. Patient 09:00:37 CDT Rober Rodríguez [facility] CPT-87453 Level 3 Est. Patient 16:07:10 CDT Robbie Busby MD [facility] CPT-97039 Level 4 Est. Patient 11:56:16 CDT Erin Garsia [facility] CPT-98276 Level 3 Est. Patient 17:48:02 CDT Robbie Busby MD [facility] CPT-79509 Level 4 Est. Patient 12:00:49 WAREHOUSE ASSOCIATE Rober Rodríguez [facility] CPT-68157 Level 3 Est. Patient 09:16:37 CDT Robbie Busby MD [facility] CPT-77341 Level 3 Est. Patient 19:38:43 CDT Robbie Busby MD [facility] CPT-00198 Level 3 Est. Patient 11:53:38 CDT Robbie Busby MD [facility] CPT-62395 Level 4 Est. Patient 12:52:22 CDT Rober Rodríguez [facility] CPT-97612 Level 4 Est. Patient 22:55:17 CDT Robbie Busby MD [facility] CPT-43282 Level 3 Est. Patient 12:38:24 CDT Desmond Diaz DO [facility] CPT-39658 Level 4 Est. Patient 11:25:03 WAREHOUSE ASSOCIATE Robbie Busby MD [facility] CPT-53634 Level 4 Est. Patient 14:50:10 CDT Robbie Busby MD [facility] CPT-47871 Level 4 Est. Patient 23:30:43 CDT Robbie Busby MD [facility] CPT-56385 Level 4 Est. Patient 10:30:43 CDT Robbie Busby MD [facility] CPT-26458 Level 3 Est. Patient 17:08:12 CDT Alex Shaw [facility] CPT-39236 Level 4 Est. Patient 17:51:38 CDT Robbie Busby MD [facility] CPT-11030 Level 4 Est. Patient 14:00:21 CDT Robbie Busby MD [facility] CPT-70142 Level 4 Est. Patient 12:46:48 CDT Robbie Busby MD [facility] CPT-86733 Level 4 Est. Patient 13:34:33 CDT Robbie Busby MD [facility] CPT-23527 Level 4 Est. Patient 16:58:28 CDT Robbie Busby MD [facility] CPT-11036 Level 3 Est. Patient 19:36:53 CDT Alex Shaw [facility] CPT-70905 Level 3 Est. Patient 12:58:15 CDT Robbie Busby MD [facility] Procedures Code Procedure Name Date Entry Date Standard Description CPT-28623 Venipuncture Draw Fee 14:39:06 CDT CPT-19984 Ribs unilateral 2V - XRAY USE ONLY 12:10:11 CDT CPT-16838 First Vx - Ix admin for Medicare patients 16:32:53 CDT CPT-09108 Boostrix Intramuscular Suspension 5-2.5-18.5 16:32:53 CDT CPT-35174 TB Skin Test 11:42:28 CDT CPT-38820 Tdap 7yrs or > 11:42:28 CDT CPT-J0696 Rocephin 1000 mg (Ceftriaxone) 17:43:43 WAREHOUSE ASSOCIATE CPT-J1040 Depo Medrol 80 mg (Methyl Prednisolone Acetate) 17:43: 43 WAREHOUSE ASSOCIATE CPT-J1100 Decadron 8mg (Dexamethasone) 17:43:42 WAREHOUSE ASSOCIATE CPT-43368 Abx/Therapy Injection 17:43:42 WAREHOUSE ASSOCIATE CPT-83760 Abx/Therapy Injection 17:43:42 WAREHOUSE ASSOCIATE CPT-J1040 Depo Medrol 80 mg (Methyl Prednisolone Acetate) 09:43: 34 WAREHOUSE ASSOCIATE CPT-J1100 Decadron 8mg (Dexamethasone) 09:43:34 WAREHOUSE ASSOCIATE CPT-J0696 Rocephin 1gm Inj Solr 09:43:34 WAREHOUSE ASSOCIATE CPT-11888 Wound Culture - LAB USE ONLY 14:00:21 CDT CPT-I/D I/D Abscess 09:16:37 CDT CPT-70445 Venipuncture Draw Fee 15:20:23 CDT CPT-16710 Microalbumin - LAB USE ONLY 16:02:19 CDT CPT-50011 CBC - LAB USE ONLY 16:02:19 CDT CPT-93764 Venipuncture Draw Fee 16:02:19 CDT CPT-G0438 Initial Annual Wellness Exam 08:10:28 CDT CPT-84652 Venipuncture Draw Fee 13:07:17 CDT CPT-G0008 Administration of Influenza Virus Vaccine 16:09:59 CDT CPT-56571 Fluzone Quadrivalent Intramuscular Suspension 0.5 ML 16: 09:59 CDT CPT-62181 Spec Collection and Handling Fee 15:05:50 CDT
--- OUTSIDE RECORDS SUMMARY | 2018-04-18 11:26 | XMS REPORT | Clinical Summary ---
Author Author Admin, Nicolas Organization [facility] Address Unknown Phone Unavailable Allergies, Adverse Reactions, [...] ALVAREZ Acute bronchitis Seasonal allergies 477.9 Active oRbbie [...] cap po bid x 10 days CEFDINIR 85525136725 Active Jackie Junior MA Active PREDNISONE 20 MG TAB 1 tablet twice daily for 2 days, then 1 tablet once daily for 2 days PREDNISONE 05916236207 Active Desmond Diaz DO Active NEXIUM 40 MG CPDR 1 cap by mouth daily ESOMEPRAZOLE MAGNESIUM 33696808684 Active Gali Negro Active PROTONIX 40 MG SOLR 1 po qday for acid reflux PANTOPRAZOLE SODIUM 05827551460 No Longer Active Galileonila Negro Active BETADINE 10 % EXT SOLN 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 POVIDONE-IODINE 50417129269 Active Robbie Busby MD Active KEFLEX 500 MG CAP 1 po TID x 10 days CEPHALEXIN 30468729119 No Longer Active Robbie Busby MD Active FIORICET 50-300-40 MG ORAL CAPS take 1 tab po qday prn migraines. [id number] 29997704601 Active Robbie Busby MD Active TOPIRAMATE 50 MG ORAL TABS take 1 tab po BID for migraines. TOPIRAMATE 26691351344 Active Robbie Busby MD Active HYDRALAZINE HCL 50 MG ORAL TABS TWO BY MOUTH THREE TIMES DAILY HYDRALAZINE HCL 05262899599 Active Robbie Busby MD Active MECLIZINE HCL 25 MG TAB one 4 times a day as needed for dizziness MECLIZINE HCL 67731755284 Active Robbie Busby MD Active TRILEPTAL 150 MG ORAL TABS 1 TAB PO Q HS OXCARBAZEPINE 84371494788 Active Robbie Busby MD Active TEMAZEPAM 15 MG ORAL CAPS 1 TAB PO Q HS TEMAZEPAM 59856426423 Active Robbie Busby MD Active ALPRAZOLAM 2 MG ORAL TABS 1 TAB PO BID ALPRAZOLAM 83415652906 Active Robbie Busby MD Active FENOFIBRATE 145 MG TABS Take one by mouth daily FENOFIBRATE 83580491515 No Longer Active Robbie Busby MD Active LAMISIL 125 MG ORAL PACK 1 TAB PO DAILY TERBINAFINE HCL 88699688939 Active Robbie Busby MD Active SPIRONOLACTONE 50 MG TABS 1 tablet by mouth twice a day SPIRONOLACTONE 40609537817 No Longer Active Robbie Busby MD Active HYDRALAZINE HCL 25 MG TABS 1 tablet by mouth tid for hypertension HYDRALAZINE HCL 02171387394 No Longer Active Robbie Busby MD Active VIIBRYD 40 MG TABS take 1 tab po qday for depression. VILAZODONE HCL 38665375059 No Longer Active oRbbie Busby MD Active TERBINAFINE HCL 250 MG TABS 1 tab po qday for foot infection 2014 TERBINAFINE HCL 32164063292 No Longer Active Robbie Busby MD Active GABAPENTIN 300 MG CAPS 1 po q hs for nerve pain GABAPENTIN 56747628822 Active Erin Garsia APRN Active FLONASE 50 MCG/ACT SUSP 1 spray each nostril twice daily for allergies and runny nose FLUTICASONE PROPIONATE 09814159091 Active Robbie Busby MD Active CHERATUSSIN AC 100-10 MG/5ML ORAL SOLN 7.5 mL PO q 4-6 hrs PRN cough GUAIFENESIN-CODEINE 44311201509 No Longer Active Robbie Busby MD Active AZITHROMYCIN 250 MG ORAL TABS 2 tablets PO today---then, 1 tablet PO daily x 4 more days (and 1 optional refill) AZITHROMYCIN 92361420687 No Longer Active Robbie Busby MD Active CLONIDINE HCL 0.2 MG ORAL TABS 1 TAB BY MOUTH EVERY 8 HOURS CLONIDINE HCL 68782928488 Active Robbie Busby MD Active HYDROCHLOROTHIAZIDE TABS Take one by mouth daily HYDROCHLOROTHIAZIDE TABS 41267489473 Active Alex ALVAREZ Active NORVASC 10 MG TAB 1 tablet by mouth daily AMLODIPINE BESYLATE 57288457681 No Longer Active Alex ALVAREZ Active IMDUR 60 MG TAB CR take 1 tab po qday for blood pressure ISOSORBIDE MONONITRATE Active Robbie Busby MD Active ISOSORBIDE DINITRATE 30 MG TABS Take one by mouth daily ISOSORBIDE DINITRATE 61480470215 No Longer Active Robbie Busby MD Active VIIBRYD 40 MG TABS 1 TA B PO DAILY VILAZODONE HCL 14780871611 Active Robbie Busby MD Active LORATADINE 10 MG TABS 1 tablet by mouth daily for congestion and allergies. LORATADINE 91388335052 Active Robbie Busby MD Active ZITHROMAX 250 MG TAB 2 po today, then 1 po q days 2-5 AZITHROMYCIN 07234754098 No Longer Active Robbie Busby MD Active HYDROCODONE-ACETAMINOPHEN 5-325 MG TABS 1 tab by mouth BID prn back pain 2013 HYDROCODONE-ACETAMINOPHEN 15652358418 Active Robbie Busby MD Active [id number]-2 0.3 MG/24HR PTWK apply 2 patches q week for HTN CLONIDINE HCL 67627108639 Active Robbie Busby MD Active NITROSTAT 0.4 MG SUBL PRN NITROGLYCERIN 06192960359 Active Robbie Busby MD Active DOXAZOSIN MESYLATE 4 MG TABS Take one by mouth daily DOXAZOSIN MESYLATE 85775066312 Active Robbie Busby MD Active TOPROL XL 200 MG [id number] Take one by mouth daily METOPROLOL SUCCINATE 79941556445 Active Robbie Busby MD Active VENLAFAXINE HCL ER 150 MG [id number] Take one by mouth daily VENLAFAXINE HCL 35398667925 Active Robbie Busby MD Active LIPITOR 40 MG TABS Take one by mouth daily ATORVASTATIN CALCIUM 49411064610 Active Robbie Busby MD Active ISOSORBIDE DINITRATE 30 MG TABS Take one by mouth daily ISOSORBIDE DINITRATE 30 MG TABS 804022 ISOSORBIDE DINITRATE Inactive NORVASC 10 MG TAB 1 tablet by mouth daily NORVASC 10 MG TAB 402518 AMLODIPINE BESYLATE Inactive AZITHROMYCIN 250 MG ORAL TABS 2 tablets PO today---then, 1 tablet PO daily x 4 more days (and 1 optional refill) AZITHROMYCIN 250 MG ORAL TABS 2989252 AZITHROMYCIN Inactive CHERATUSSIN AC 100-10 MG/5ML ORAL SOLN 7.5 mL PO q 4-6 hrs PRN cough CHERATUSSIN AC 100-10 MG/5ML ORAL SOLN 392596 GUAIFENESIN- CODEINE Inactive VIIBRYD 40 MG TABS take 1 tab po qday for depression. VIIBRYD 40 MG TABS VILAZODONE HCL Inactive HYDRALAZINE HCL 25 MG TABS 1 tablet by mouth tid for hypertension HYDRALAZINE HCL 25 MG TABS 089034 HYDRALAZINE HCL Inactive SPIRONOLACTONE 50 MG TABS 1 tablet by mouth twice a day SPIRONOLACTONE 50 MG TABS 385988 SPIRONOLACTONE Inactive FENOFIBRATE 145 MG TABS Take one by mouth daily FENOFIBRATE 145 MG TABS 124138 FENOFIBRATE Inactive PROTONIX 40 MG SOLR 1 po qday for acid reflux PROTONIX 40 MG SOLR PANTOPRAZOLE SODIUM Inactive ZITHROMAX 250 MG TAB 2 po today, then 1 po q days 2-5 ZITHROMAX 250 MG TAB 5000837 AZITHROMYCIN Inactive TERBINAFINE HCL 250 MG TABS 1 tab po qday for foot infection 2014 TERBINAFINE HCL 250 MG TABS 861914 TERBINAFINE HCL Inactive KEFLEX 500 MG CAP 1 po TID x 10 days KEFLEX 500 MG CAP 299284 CEPHALEXIN Inactive Vital Signs Date Name Value [...] Report: Lipid Panel, HEPATIC PANEL - Chemistry triglyceride, serum, fasting 429 mg/dL 30-200 cholesterol, serum 211 mg/dL 557-579 2173/08/31 HDL cholesterol, serum 25 mg/dL 32-96 LDL cholesterol, serum 100 mg/dL 0-130 aspartate aminotransferase (SGOT), serum 19 U/L 15-37 bilirubin, serum, total 0.70 mg/dL 0.00-1.00 alanine aminotransferase (SGPT), serum 32 U/L 12-78 Lab Report: Prostatic Specific Ag - Chemistry prostate specific antigen 1.31 ng/mL 0.00-4.00 Lab Report: RapidStrep Rflx/Cx - Lab Microbial identification kit, rapid strep method Negative-Throat Culture to Follow Negative Encounters Code Encounter Date Provider Facility CPT-49863 Level 3 Est. Patient 12:38:24 CDT Desmond Diaz DO [facility] CPT-76935 Level 4 Est. Patient 11:25:03 EGG SEPARATOR Robbie Busby MD [facility]-82103 Level 4 Est. Patient 14:50:10 CDT Robbie Busby MD [facility]-68435 Level 4 Est. Patient 23:30:43 CDT Robbie Busby MD [facility] CPT-23423 Level 4 Est. Patient 10:30:43 CDT Robbie Busby MD [facility] CPT-11387 Level 3 Est. Patient 17:08:12 CDT Alex ALVAREZ [facility] CPT-56172 Level 4 Est. Patient 17:51:38 CDT oRbbie Busby MD [facility] CPT-96587 Level 4 Est. Patient 14:00:21 CDT Robbie Busby MD [facility] CPT-66506 Level 4 Est. Patient 12:46:48 CDT Robbie Busby MD [facility]-92065 Level 4 Est. Patient 13:34:33 CDT Robbie Busby MD [facility] CPT-08744 Level 4 Est. Patient 16:58:28 CDT Robbie Busby MD [facility]-96572 Level 3 Est. Patient 19:36:53 CDT Alex ALVAREZ [facility] CPT-99222 Level 3 Est. Patient 12:58:15 CDT Robbie Busby MD [facility] Procedures Code Procedure Name Date Entry Date Standard Description CPT-G0008 Administration of Influenza Virus Vaccine 16:09:59 CDT CPT-34608 Fluzone Quadrivalent Intramuscular Suspension 0.5 ML 16: 09:59 CDT CPT-91878 Spec Collection and Handling Fee 15:05:50 CDT
--- OUTSIDE RECORDS SUMMARY | 2018-04-18 11:27 | XMS REPORT | Clinical Summary ---
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 Desmond Diaz DO Other malignant secondary hypertension Tachycardia 785.0 Active Rober Rodríguez FOOD SERVICE AGENT Tachycardia, unspecified Insect bite, infected 919.5 Resolved Desmond Diaz DO Insect bite, nonvenomous, of other, multiple, and unspecified sites, infected Abscess, skin 682.9 Resolved Desmond Diaz DO Cellulitis and abscess of unspecified sites URI 465.9 Resolved Desmond Diaz DO Acute upper respiratory infections of unspecified site Hypertension 401.9 Active Roebr Rodríguez FOOD SERVICE AGENT Unspecified essential hypertension Sinusitis - acute 461.9 Resolved Edsmond W Joe DO Acute sinusitis, unspecified Acute [...] Hypogonadism, low testosterone 257.2 Active Erin Mai FOOD SERVICE AGENT Other testicular hypofunction Low back pain, [...] 37.0-37.9, adult Sinusitis ICD-461.9 Inactive Emily Atwood [employer] IR[employer] SUPERVISOR 2017 Low back pain, acute ICD-724.2 Inactive Emily Atwood [employer] IR[employer]ER SUPERVISOR Low back pain, chronic ICD-724.2 Inactive Emily Atwood [employer] IRONER SUPERVISOR Bronchitis, acute ICD-466.0 Inactive Emily Atwood [employer] IRONER SUPERVISOR Onychomycosis, toenails ICD-110.1 Inactive Emily Atwood [employer] IRONER SUPERVISOR Dizziness ICD-780.4 Inactive Emily Atwood [employer] IRONER SUPERVISOR 2017 Folliculitis ICD-704.8 Inactive Emily Atwood [employer] IRONER SUPERVISOR Pharyngitis-Acute ICD-462 Inactive Emily Atwood [employer] IRONER SUPERVISOR Fatigue ICD-780.79 Inactive Emily Atwood [employer] IR[employer] SUPERVISOR 09/20 Hypertension, secondary, malignant ICD-405.09 Inactive Emily Atwood SH[employer] IRONER SUPERVISOR Insect bite, infected ICD-919.5 Inactive Emily Atwood SH[employer] IRONER SUPERVISOR Abscess, skin ICD-682.9 Inactive Emily Atwood [employer] IRONER SUPERVISOR URI ICD-465.9 Inactive Emily Atwood [employer] IRONER SUPERVISOR Sinusitis - acute ICD-461.9 Inactive Emily Atwood [employer] IRONER SUPERVISOR Acute confusion ICD-293.0 Inactive Emily Atwood [employer] IR[employer]ER SUPERVISOR Headache ICD-784.0 Inactive Emily Rai CISSE 09/20 Back pain ICD-724.5 Inactive Emily Atwood [employer] IR[employer] SUPERVISOR 2017 Rib pain, right sided ICD-786.50 Inactive [...] blood pressure and rapid pulse METOPROLOL SUCCINATE 22925219633 Active Robbie Busby MD Active [id number]-3 0.3 MG/24HR TRANSDERMAL PATCH WEEKLY apply 2 patches q week for HTN CLONIDINE HCL 23448472886 No Longer Active Robbie Busby MD Active IMDUR 60 MG ORAL TABLET EXTENDED RELEASE 24 HOUR take 1 tab po qday for blood pressure ISOSORBIDE MONONITRATE 79145617473 No Longer Active Robbie Busby MD Active TEMAZEPAM 15 MG ORAL CAPSULE 1 TAB PO Q HS TEMAZEPAM 61937288957 No Longer Active Robbie Busby MD Active TOPIRAMATE 50 MG ORAL TABLET 1 po BID for migraines TOPIRAMATE 43433586040 No Longer Active Robbie Busby MD Active CYCLOBENZAPRINE HCL 10 MG ORAL TABLET 1 tablet by mouth three times daily as needed for muscle spasm/pain CYCLOBENZAPRINE HCL 68448298643 No Longer Active Robbie Busby MD Active TOPROL XL 200 MG ORAL TABLET EXTENDED RELEASE 24 HOUR Take one by mouth daily METOPROLOL SUCCINATE 37059468836 No Longer Active Robbie Busby MD Active METFORMIN HCL 500 MG ORAL TABLET 1 tablet by mouth daily for diabetes type 2 METFORMIN HCL 36821089321 Active Robbie Busby MD Active SINGULAIR 10 MG ORAL TABLET 1 po qday for allergies. MONTELUKAST SODIUM 70911739306 No Longer Active Robbie Busby MD Active PREDNISONE 20 MG ORAL TABLET two tabs by mouth today, then one tab by mouth days two and three PREDNISONE 69607322437 No Longer Active Robbie Busby MD Active AZITHROMYCIN 250 MG ORAL TABLET 2 po qd x 1 day, then 1 po qd x 4 days 09/20 AZITHROMYCIN 89961708860 No Longer Active Desmond Diaz DO Active TOPIRAMATE 50 MG ORAL TABLET take 1 tab po BID for migraines. TOPIRAMATE 73457101327 No Longer Active Desmond Diaz DO Active CYCLOBENZAPRINE HCL 10 MG ORAL TABLET 1 po TID PRN muscle spasm/pain for 10 days CYCLOBENZAPRINE HCL 36272047104 No Longer Active Desmond Diaz DO Active GUAIFENESIN ER 600 MG ORAL TABLET EXTENDED RELEASE 12 HOUR 1 tab po q am 2016 GUAIFENESIN 19342422227 No Longer Active Robbie Busby MD Active DIVALPROEX SODIUM ER 500 MG ORAL TABLET EXTENDED RELEASE 24 HOUR Once daily DIVALPROEX SODIUM 57977484963 Active Robbie Busby MD Active DEPO-TESTOSTERONE 200 MG/ML INTRAMUSCULAR SOLUTION 1 IM Injections every 2 weeks for low testosterone TESTOSTERONE CYPIONATE 76377457303 Active Zulema Blank LPN Active FLUTICASONE PROPIONATE 50 MCG/ACT NASAL SUSPENSION 2 sprays per nostril bid for 1 week, then 1 spray bid FLUTICASONE PROPIONATE 15565078899 Active Rober Rodríguez APRN Active HYDRALAZINE HCL 25 MG ORAL TABLET Take 1 tab BID. HYDRALAZINE HCL 44167625034 Active Rober Rodríguez APRN Active VITAMIN D3 04772 UNIT ORAL TABLET 2 po weekly CHOLECALCIFEROL 39262514711 Active Robbie Busby MD Active OXYCODONE HCL ER 10 MG ORAL TABLET ER 12 HOUR ABUSE-DETERRENT 1 tab po 3 times qd. OXYCODONE HCL 86303197348 Active Robbie Busby MD Active NITROSTAT 0.4 MG SUBLINGUAL TABLET SUBLINGUAL PRN NITROGLYCERIN 37925806627 No Longer Active Robbie Busby MD Active LORATADINE 10 MG ORAL TABLET 1 tablet by mouth daily for congestion and allergies. LORATADINE 63937790207 No Longer Active Robbie Busby MD Active FLONASE 50 MCG/ACT NASAL SUSPENSION 1 spray each nostril twice daily for allergies and runny nose FLUTICASONE PROPIONATE 81322209075 No Longer Active Robbie Busby MD Active FIORICET 50-300-40 MG ORAL CAPSULE take 1 tab po qday prn migraines. [id number] 62820754689 No Longer Active Robbie Busby MD Active VITAMIN D3 73819 UNIT ORAL CAPSULE 2 CAPS PO WEEKLY CHOLECALCIFEROL 83276672322 No Longer Active Robbie Busby MD Active CYCLOBENZAPRINE HCL 10 MG ORAL TABLET 1 tablet by mouth three times daily as needed for muscle spasm/pain for 10 days CYCLOBENZAPRINE HCL 57568421405 No Longer Active Robbie Busby MD Active PREDNISONE 20 MG ORAL TABLET take 3 tabs daily for 3 days, 2 tabs daily for 3 days, 1 tab daily for 3 days, 1/2 tab daily for 4 days PREDNISONE 22032114424 No Longer Active Erin Mai APRN Active CLONIDINE HCL 0.2 MG ORAL TABLET 1 TAB BY MOUTH EVERY 8 HOURS CLONIDINE HCL 34434441243 No Longer Active Erin Mai APRN Active MECLIZINE HCL 25 MG ORAL TABLET one 4 times a day as needed for dizziness MECLIZINE HCL 48507725742 No Longer Active Erin Arell FOOD SERVICE AGENT Active SPIRONOLACTONE 25 MG ORAL TABLET 4 tablets by mouth daily SPIRONOLACTONE 42888995436 No Longer Active Erin Arell FOOD SERVICE AGENT Active LEVAQUIN 500 MG ORAL TABLET 1 tablet by mouth daily for 7 days LEVOFLOXACIN 30454003370 No Longer Active Erin Arell FOOD SERVICE AGENT Active BACTRIM DS 800-160 MG ORAL TABLET 1 tab by mouth twice daily 2015 TRIMETHOPRIM-SULFAMETHOXAZOLE 49454997163 No Longer Active Robbie Busby MD Active HYDRALAZINE HCL 50 MG ORAL TABLET TWO BY MOUTH THREE TIMES DAILY HYDRALAZINE HCL 70603687555 No Longer Active Agnieszkaina Zulemal FOOD SERVICE AGENT Active HYDROCODONE-ACETAMINOPHEN 5-325 MG ORAL TABLET 1 tab by mouth BID prn back pain HYDROCODONE-ACETAMINOPHEN 70322603169 No Longer Active Jillina Frazell FOOD SERVICE AGENT Active HYDROCHLOROTHIAZIDE TABLET Take one by mouth daily HYDROCHLOROTHIAZIDE TABS 72337872569 No Longer Active Jillina Frazell FOOD SERVICE AGENT Active LAMISIL 125 MG ORAL PACKET 1 TAB PO DAILY TERBINAFINE HCL 79646285936 No Longer Active Jillina Frazell FOOD SERVICE AGENT Active TRILEPTAL 150 MG ORAL TABLET 1 TAB PO Q HS OXCARBAZEPINE 76087793105 No Longer Active Jillina Frazell FOOD SERVICE AGENT Active BETADINE 10 % EXTERNAL SOLUTION 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 07/29 POVIDONE-IODINE 31022449182 No Longer Active Jillina Frazell FOOD SERVICE AGENT Active NYSTATIN 403199 UNIT/ML MOUTH/THROAT SUSPENSION 5mL po QID x 10 days NYSTATIN 84818008423 No Longer Active Erin Arell FOOD SERVICE AGENT Active PREDNISONE 20 MG ORAL TABLET 1 tablet twice daily for 2 days, then 1 tablet once daily for 2 days PREDNISONE 00348012065 No Longer Active Robbie Busby MD Active CEFDINIR 300 MG ORAL CAPSULE Take 1 cap po bid x 10 days CEFDINIR 37614171587 No Longer Active Robbie Busby MD Active AMLODIPINE BESYLATE 10 MG ORAL TABLET 1 tablet by mouth daily AMLODIPINE BESYLATE 16284389803 Active Robbie Busby MD Active CARVEDILOL 25 MG ORAL TABLET 1 & 1/2 TAB po BID CARVEDILOL 06854244314 Active Robbie Busby MD Active NEXIUM 40 MG ORAL CAPSULE DELAYED RELEASE 1 cap by mouth daily ESOMEPRAZOLE MAGNESIUM 03166000540 Active Robbie Busby MD Active PROTONIX 40 MG INTRAVENOUS SOLUTION RECONSTITUTED 1 po qday for acid reflux PANTOPRAZOLE SODIUM 15835361631 No Longer Active Galileonila Negro Active KEFLEX 500 MG ORAL CAPSULE 1 po TID x 10 days CEPHALEXIN 84250810036 No Longer Active Robbie Busby MD Active ALPRAZOLAM 2 MG ORAL TABLET 1 TAB PO BID ALPRAZOLAM 20542398752 Active Robbie Busby MD Active FENOFIBRATE 145 MG ORAL TABLET Take one by mouth daily FENOFIBRATE 79001419062 No Longer Active Robbie Busby MD Active SPIRONOLACTONE 50 MG ORAL TABLET 1 tablet by mouth twice a day SPIRONOLACTONE 35357941136 No Longer Active Robbie Busby MD Active HYDRALAZINE HCL 25 MG ORAL TABLET 1 tablet by mouth tid for hypertension 2013 HYDRALAZINE HCL 73204234920 No Longer Active Robbie Busby MD Active VIIBRYD 40 MG ORAL TABLET take 1 tab po qday for depression. 2014 VILAZODONE HCL 15443226403 No Longer Active Robbie Busby MD Active TERBINAFINE HCL 250 MG ORAL TABLET 1 tab po qday for foot infection TERBINAFINE HCL 40233559882 No Longer Active Robbie Busby MD Active GABAPENTIN 300 MG ORAL CAPSULE 1 po q hs for nerve pain GABAPENTIN 54841690434 Active Robbie Busby MD Active CHERATUSSIN AC 100-10 MG/5ML ORAL SOLUTION 7.5 mL PO q 4-6 hrs PRN cough 2014 GUAIFENESIN-CODEINE 14229497831 No Longer Active Robbie Busby MD Active AZITHROMYCIN 250 MG ORAL TABLET 2 tablets PO today---then, 1 tablet PO daily x 4 more days (and 1 optional refill) AZITHROMYCIN 00365248309 No Longer Active Robbie Busby MD Active NORVASC 10 MG ORAL TABLET 1 tablet by mouth daily AMLODIPINE BESYLATE 46703463201 No Longer Active Alex ALVAREZ Active ISOSORBIDE DINITRATE 30 MG ORAL TABLET Take one by mouth daily ISOSORBIDE DINITRATE 76274898233 No Longer Active Robbie Busby MD Active VIIBRYD 40 MG ORAL TABLET 1 TA B PO DAILY VILAZODONE HCL 89135595871 Active Robbie Busby MD Active ZITHROMAX 250 MG ORAL TABLET 2 po today, then 1 po q days 2-5 AZITHROMYCIN 65367523034 No Longer Active Robbie Busby MD Active DOXAZOSIN MESYLATE 4 MG ORAL TABLET Take one by mouth daily DOXAZOSIN MESYLATE 53674949547 Active Robbie Busby MD Active VENLAFAXINE HCL ER 150 MG ORAL TABLET EXTENDED RELEASE 24 HOUR Take one by mouth daily VENLAFAXINE HCL 96527716043 Active Robbie Busby MD Active LIPITOR 40 MG ORAL TABLET Take one by mouth daily ATORVASTATIN CALCIUM 14729511566 Active Robbie Busby MD Active ISOSORBIDE DINITRATE 30 MG ORAL TABLET Take one by mouth daily ISOSORBIDE DINITRATE 30 MG ORAL TABLET 556410 ISOSORBIDE DINITRATE Inactive NORVASC 10 MG ORAL TABLET 1 tablet by mouth daily NORVASC 10 MG ORAL TABLET 447789 AMLODIPINE BESYLATE Inactive AZITHROMYCIN 250 MG ORAL TABLET 2 tablets PO today---then, 1 tablet PO daily x 4 more days (and 1 optional refill) AZITHROMYCIN 250 MG ORAL TABLET 039410 AZITHROMYCIN Inactive CHERATUSSIN AC 100-10 MG/5ML ORAL SOLUTION 7.5 mL PO q 4-6 hrs PRN cough 2014 CHERATUSSIN AC 100-10 MG/5ML ORAL SOLUTION 839784 GUAIFENESIN-CODEINE Inactive VIIBRYD 40 MG ORAL TABLET take 1 tab po qday for depression. 2014 VIIBRYD 40 MG ORAL TABLET VILAZODONE HCL Inactive HYDRALAZINE HCL 25 MG ORAL TABLET 1 tablet by mouth tid for hypertension 2013 HYDRALAZINE HCL 25 MG ORAL TABLET 246710 HYDRALAZINE HCL Inactive SPIRONOLACTONE 50 MG ORAL TABLET 1 tablet by mouth twice a day SPIRONOLACTONE 50 MG ORAL TABLET 520823 SPIRONOLACTONE Inactive FENOFIBRATE 145 MG ORAL TABLET Take one by mouth daily FENOFIBRATE 145 MG ORAL TABLET 016779 FENOFIBRATE Inactive PROTONIX 40 MG INTRAVENOUS SOLUTION RECONSTITUTED 1 po qday for acid reflux PROTONIX 40 MG INTRAVENOUS SOLUTION RECONSTITUTED 181775 PANTOPRAZOLE SODIUM Inactive CEFDINIR 300 MG ORAL CAPSULE Take 1 cap po bid x 10 days CEFDINIR 300 MG ORAL CAPSULE 482205 CEFDINIR Inactive PREDNISONE 20 MG ORAL TABLET 1 tablet twice daily for 2 days, then 1 tablet once daily for 2 days PREDNISONE 20 MG ORAL TABLET 338937 PREDNISONE Inactive NYSTATIN 457824 UNIT/ML MOUTH/THROAT SUSPENSION 5mL po QID x 10 days NYSTATIN 508947 UNIT/ML MOUTH/THROAT SUSPENSION 816217 NYSTATIN Inactive BETADINE 10 % EXTERNAL SOLUTION 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 07/29 BETADINE 10 % EXTERNAL SOLUTION 1700231 POVIDONE-IODINE Inactive TRILEPTAL 150 MG ORAL TABLET 1 TAB PO Q HS TRILEPTAL 150 MG ORAL TABLET 596112 OXCARBAZEPINE Inactive LAMISIL 125 MG ORAL PACKET 1 TAB PO DAILY LAMISIL 125 MG ORAL PACKET TERBINAFINE HCL Inactive HYDROCHLOROTHIAZIDE TABLET Take one by mouth daily HYDROCHLOROTHIAZIDE TABLET HYDROCHLOROTHIAZIDE TABS Inactive HYDROCODONE-ACETAMINOPHEN 5-325 MG ORAL TABLET 1 tab by mouth BID prn back pain HYDROCODONE-ACETAMINOPHEN 5-325 MG ORAL TABLET 092951 HYDROCODONE-ACETAMINOPHEN Inactive HYDRALAZINE HCL 50 MG ORAL TABLET TWO BY MOUTH THREE TIMES DAILY HYDRALAZINE HCL 50 MG ORAL TABLET 598529 HYDRALAZINE HCL Inactive LEVAQUIN 500 MG ORAL TABLET 1 tablet by mouth daily for 7 days LEVAQUIN 500 MG ORAL TABLET 542798 LEVOFLOXACIN Inactive SPIRONOLACTONE 25 MG ORAL TABLET 4 tablets by mouth daily SPIRONOLACTONE 25 MG ORAL TABLET 009374 SPIRONOLACTONE Inactive MECLIZINE HCL 25 MG ORAL TABLET one 4 times a day as needed for dizziness MECLIZINE HCL 25 MG ORAL TABLET 249104 MECLIZINE HCL Inactive CLONIDINE HCL 0.2 MG ORAL TABLET 1 TAB BY MOUTH EVERY 8 HOURS CLONIDINE HCL 0.2 MG ORAL TABLET 325848 CLONIDINE HCL Inactive CYCLOBENZAPRINE HCL 10 MG ORAL TABLET 1 tablet by mouth three times daily as needed for muscle spasm/pain for 10 days CYCLOBENZAPRINE HCL 10 MG ORAL TABLET 231625 CYCLOBENZAPRINE HCL Inactive VITAMIN D3 51196 UNIT ORAL CAPSULE 2 CAPS PO WEEKLY VITAMIN D3 62236 UNIT ORAL CAPSULE CHOLECALCIFEROL Inactive FIORICET 50-300-40 MG ORAL CAPSULE take 1 tab po qday prn migraines. FIORICET 50-300-40 MG ORAL CAPSULE 364073 BUTALBITAL-APAP- CAFFEINE Inactive FLONASE 50 MCG/ACT NASAL SUSPENSION 1 spray each nostril twice daily for allergies and runny nose FLONASE 50 MCG/ACT NASAL SUSPENSION 1965208 FLUTICASONE PROPIONATE Inactive LORATADINE 10 MG ORAL TABLET 1 tablet by mouth daily for congestion and allergies. LORATADINE 10 MG ORAL TABLET 695067 LORATADINE Inactive NITROSTAT 0.4 MG SUBLINGUAL TABLET SUBLINGUAL PRN NITROSTAT 0.4 MG SUBLINGUAL TABLET SUBLINGUAL 838854 NITROGLYCERIN Inactive GUAIFENESIN ER 600 MG ORAL TABLET EXTENDED RELEASE 12 HOUR 1 tab po q am 2016 GUAIFENESIN ER 600 MG ORAL TABLET EXTENDED RELEASE 12 HOUR GUAIFENESIN Inactive CYCLOBENZAPRINE HCL 10 MG ORAL TABLET 1 po TID PRN muscle spasm/pain for 10 days CYCLOBENZAPRINE HCL 10 MG ORAL TABLET 955521 CYCLOBENZAPRINE HCL Inactive TOPIRAMATE 50 MG ORAL TABLET take 1 tab po BID for migraines. TOPIRAMATE 50 MG ORAL TABLET 700696 TOPIRAMATE Inactive PREDNISONE 20 MG ORAL TABLET two tabs by mouth today, then one tab by mouth days two and three PREDNISONE 20 MG ORAL TABLET 684953 PREDNISONE Inactive TOPROL XL 200 MG ORAL TABLET EXTENDED RELEASE 24 HOUR Take one by mouth daily TOPROL XL 200 MG ORAL TABLET EXTENDED RELEASE 24 HOUR METOPROLOL SUCCINATE Inactive CYCLOBENZAPRINE HCL 10 MG ORAL TABLET 1 tablet by mouth three times daily as needed for muscle spasm/pain CYCLOBENZAPRINE HCL 10 MG ORAL TABLET 492337 CYCLOBENZAPRINE HCL Inactive TOPIRAMATE 50 MG ORAL TABLET 1 po BID for migraines TOPIRAMATE 50 MG ORAL TABLET 695721 TOPIRAMATE Inactive TEMAZEPAM 15 MG ORAL CAPSULE 1 TAB PO Q HS TEMAZEPAM 15 MG ORAL CAPSULE 813122 TEMAZEPAM Inactive IMDUR 60 MG ORAL TABLET EXTENDED RELEASE 24 HOUR take 1 tab po qday for blood pressure IMDUR 60 MG ORAL TABLET EXTENDED RELEASE 24 HOUR ISOSORBIDE MONONITRATE Inactive [id number] 0.3 MG/24HR TRANSDERMAL PATCH WEEKLY apply 2 patches q week for HTN [id number] 0.3 MG/24HR TRANSDERMAL PATCH WEEKLY 865029 CLONIDINE HCL Inactive ZITHROMAX 250 MG ORAL TABLET 2 po today, then 1 po q days 2-5 ZITHROMAX 250 MG ORAL TABLET 533627 AZITHROMYCIN Inactive TERBINAFINE HCL 250 MG ORAL TABLET 1 tab po qday for foot infection TERBINAFINE HCL 250 MG ORAL TABLET 481830 TERBINAFINE HCL Inactive KEFLEX 500 MG ORAL CAPSULE 1 po TID x 10 days KEFLEX 500 MG ORAL CAPSULE 696671 CEPHALEXIN Inactive BACTRIM DS 800-160 MG ORAL TABLET 1 tab by mouth twice daily 2015 BACTRIM DS 800-160 MG ORAL TABLET 268313 TRIMETHOPRIM- SULFAMETHOXAZOLE Inactive PREDNISONE 20 MG ORAL TABLET take 3 tabs daily for 3 days, 2 tabs daily for 3 days, 1 tab daily for 3 days, 1/2 tab daily for 4 days PREDNISONE 20 MG ORAL TABLET 765982 PREDNISONE Inactive AZITHROMYCIN 250 MG ORAL TABLET 2 po qd x 1 day, then 1 po qd x 4 days 09/20 AZITHROMYCIN 250 MG ORAL TABLET 740148 AZITHROMYCIN Inactive SINGULAIR 10 MG ORAL TABLET 1 po qday for allergies. SINGULAIR 10 MG ORAL TABLET 582021 MONTELUKAST SODIUM Inactive Advance Directives Directive Description [...] AUTO - Chemistry sodium, serum 142 mmol/L 313-774 5978/07/17 carbon dioxide, venous blood 28.2 mmol/L 21.0-32.0 [...] % 11.0-15.0 platelet count 185 THOUSAND/UL 10*3/mm3 919-116 8413/04/14 mean platelet volume 10.9 fL 7.5-12.5 Lab Report: Comp. Metabolic Panel - Chemistry sodium, serum 141 mmol/L 999-332 4307/02/13 carbon dioxide, venous blood 23.9 mmol/L 21.0-32.0 [...] 6.9 % 4.3-6.0 sodium, serum 139 mmol/L 741-960 6237/01/04 potassium, serum 3.9 mmol/L 3.5-5.2 chloride, serum 103 mmol/L 98-107 carbon dioxide, venous blood 26.9 mmol/L 21.0-32.0 blood glucose 106 mg/dL 65-110 calcium, serum 9.0 mg/dL 8.5-10.1 urea nitrogen, blood 20 mg/dL 7-18 creatinine, serum 1.46 mg/dL 0.60-1.30 Lab Report: LIPID PANEL, TSH/899, T4, FREE/866 - Chemistry cholesterol, serum 220 mg/dL 694-527 9572/04/14 HDL cholesterol, serum 30 mg/dL > OR=40 [...] 1.80 ng/mL 0.00-4.00 Lab Report: VITAMIN D, 25-HYDROXY/14128 - Chemistry vitamin D 25-hydroxy, serum 25 ng/mL 30-100 Office Visit: Confusion, dizziness after fall - Basic LDL target level 130 mg/dL Office Visit: Confusion, dizziness after fall - Chemistry HDL cholesterol, serum, target level 40 mg/dL triglyceride, target level 150 mg/dL cholesterol, target level 200 mg/dL Encounters Code Encounter Date Provider Facility CPT-22055 Level 4 Est. Patient 09:50:01 CLINICAL PROGRAM DIRECTOR Robbie Busby MD [facility] CPT-17587 Level 4 Est. Patient 09:42:08 CLINICAL PROGRAM DIRECTOR Robbie Busby MD [facility] CPT-38091 Level 4 Est. Patient 13:07:39 CLINICAL PROGRAM DIRECTOR Robbie Busby MD [facility] CPT-64265 Level 4 Est. Patient 15:23:44 CLINICAL PROGRAM DIRECTOR Desmond Diaz DO [facility] CPT-48695 Level 3 Est. Patient 15:40:49 CDT Robbie Busby MD [facility] CPT-52429 Level 4 Est. Patient 15:18:19 CDT Robbie Busby MD [facility] CPT-93121 Level 3 Est. Patient 09:00:37 CDT Rober Rodríguez APRN [facility] CPT-38847 Level 3 Est. Patient 16:07:10 CDT Robbie Busby MD [facility] CPT-12215 Level 4 Est. Patient 11:56:16 CDT Erin Mai [facility] CPT-35574 Level 3 Est. Patient 17:48:02 CDT Robbie Busby MD [facility] CPT-45394 Level 4 Est. Patient 12:00:49 CLINICAL PROGRAM DIRECTOR Rober Rodolfoneha [facility] CPT-51610 Level 3 Est. Patient 09:16:37 CDT Robbie Busby MD [facility] CPT-09645 Level 3 Est. Patient 19:38:43 CDT Robbie Busby MD [facility] CPT-14553 Level 3 Est. Patient 11:53:38 CDT Robbie Busby MD [facility] CPT-76286 Level 4 Est. Patient 12:52:22 CDT Rober Rodolfoneha [facility] CPT-73231 Level 4 Est. Patient 22:55:17 CDT Robbie Busby MD [facility] CPT-36685 Level 3 Est. Patient 12:38:24 CDT Desmond Diaz DO [facility] CPT-39170 Level 4 Est. Patient 11:25:03 CLINICAL PROGRAM DIRECTOR Robbie Busby MD [facility] CPT-18049 Level 4 Est. Patient 14:50:10 CDT Robbie Busby MD [facility] CPT-75047 Level 4 Est. Patient 23:30:43 CDT Robbie Busby MD [facility] CPT-39685 Level 4 Est. Patient 10:30:43 CDT Robbie Busby MD [facility] CPT-39418 Level 3 Est. Patient 17:08:12 CDT Alex ALVAREZ [facility] CPT-81439 Level 4 Est. Patient 17:51:38 CDT Robbie Busby MD [facility] CPT-89540 Level 4 Est. Patient 14:00:21 CDT Robbie Busby MD [facility] CPT-68692 Level 4 Est. Patient 12:46:48 CDT Robbie Busby MD [facility] CPT-17616 Level 4 Est. Patient 13:34:33 CDT Robbie Busby MD [facility] CPT-60133 Level 4 Est. Patient 16:58:28 CDT Robbie Busby MD [facility] CPT-23783 Level 3 Est. Patient 19:36:53 CDT Alex ALVAREZ [facility] CPT-41461 Level 3 Est. Patient 12:58:15 CDT Robbie Busby MD [facility] Procedures Code Procedure Name Date Entry Date Standard Description CPT-J1071 Depo Testosterone 200mg 16:10:29 RUST CPT-68320 Abx/Therapy Injection 16:10:29 RUST CPT-J1071 Depo Testosterone 200mg 16:13:47 CLINICAL PROGRAM DIRECTOR CPT-24123 Abx/Therapy Injection 16:13:46 RUST CPT-J1071 Depo Testosterone 200mg 15:33:58 CLINICAL PROGRAM DIRECTOR CPT-20233 Abx/Therapy Injection 15:33:58 RUST CPT-J1071 Depo Testosterone 200mg 09:38:36 CLINICAL PROGRAM DIRECTOR CPT-45692 Abx/Therapy Injection 09:38:36 CLINICAL PROGRAM DIRECTOR CPT-J1071 Depo Testosterone 200mg 10:22:56 CLINICAL PROGRAM DIRECTOR CPT-39414 Abx/Therapy Injection 10:22:56 CLINICAL PROGRAM DIRECTOR CPT-J1071 Depo Testosterone 200mg 15:40:23 CDT CPT-08060 Abx/Therapy Injection 15:40:23 CDT CPT-J1071 Depo Testosterone 200mg 14:20:43 CDT CPT-60317 Abx/Therapy Injection 14:20:43 CDT CPT-J1071 Depo Testosterone 200mg 14:17:22 CDT CPT-09930 Abx/Therapy Injection 14:17:22 CDT CPT-J1071 Depo Testosterone 200mg 09:03:53 CDT CPT-61619 Abx/Therapy Injection 09:03:53 CDT CPT-G0439 [facility] Annual Wellness Exam 16:47:44 CDT CPT-J1071 Depo Testosterone 200mg 09:06:28 CDT CPT-29355 Abx/Therapy Injection 09:06:28 CDT CPT-J1071 Depo Testosterone 200mg 08:30:01 CDT CPT-67872 Abx/Therapy Injection 08:30:01 CDT CPT-J1071 Depo Testosterone 200mg 08:24:00 CDT CPT-71571 Abx/Therapy Injection 08:24:00 CDT CPT-89649 Venipuncture Draw Fee 14:39:06 CDT CPT-03647 Ribs unilateral 2V - XRAY USE ONLY 12:10:11 CDT CPT-13198 First Vx - Ix admin for Medicare patients 16:32:53 CDT CPT-68393 Boostrix Intramuscular Suspension 5-2.5-18.5 16:32:53 CDT CPT-44581 TB Skin Test 11:42:28 CDT CPT-31724 Tdap 7yrs or > 11:42:28 CDT CPT-J0696 Rocephin 1000 mg (Ceftriaxone) 17:43:43 CLINICAL PROGRAM DIRECTOR CPT-J1040 Depo Medrol 80 mg (Methyl Prednisolone Acetate) 17:43: 43 CLINICAL PROGRAM DIRECTOR CPT-J1100 Decadron 8mg (Dexamethasone) 17:43:42 CLINICAL PROGRAM DIRECTOR CPT-79205 Abx/Therapy Injection 17:43:42 CLINICAL PROGRAM DIRECTOR CPT-97809 Abx/Therapy Injection 17:43:42 CLINICAL PROGRAM DIRECTOR CPT-J1040 Depo Medrol 80 mg (Methyl Prednisolone Acetate) 09:43: 34 CLINICAL PROGRAM DIRECTOR CPT-J1100 Decadron 8mg (Dexamethasone) 09:43:34 CLINICAL PROGRAM DIRECTOR CPT-J0696 Rocephin 1gm Inj Solr 09:43:34 CLINICAL PROGRAM DIRECTOR CPT-33369 Wound Culture - LAB USE ONLY 14:00:21 CDT CPT-I/D I/D Abscess 09:16:37 CDT CPT-74631 Venipuncture Draw Fee 15:20:23 CDT CPT-58997 Microalbumin - LAB USE ONLY 16:02:19 CDT CPT-97579 CBC - LAB USE ONLY 16:02:19 CDT CPT-36775 Venipuncture Draw Fee 16:02:19 CDT CPT-G0438 Initial Annual Wellness Exam 08:10:28 CDT CPT-81113 Venipuncture Draw Fee 13:07:17 CDT CPT-G0008 Administration of Influenza Virus Vaccine 16:09:59 CDT CPT-32970 Fluzone Quadrivalent Intramuscular Suspension 0.5 ML 16: 09:59 CDT CPT-44622 Spec Collection and Handling Fee 15:05:50 CDT
--- OUTSIDE RECORDS SUMMARY | 2018-04-18 11:28 | XMS REPORT | Clinical Summary ---
Author Author Admin, AKUA Organization [employer] 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 Other malignant secondary hypertension Tachycardia 785.0 Active [...] 2 weeks for low testosterone TESTOSTERONE CYPIONATE 95998833098 Active Zulema Blank LPN Active CYCLOBENZAPRINE HCL 10 MG ORAL TABS 1 po TID PRN muscle spasm/pain for 10 days CYCLOBENZAPRINE HCL 16286048386 Active JONATHAN Moncada Active GUAIFENESIN 600 MG [id number] 1 tab po q am GUAIFENESIN 24491113174 Active Jillina Anne GONZALEZN Active FLUTICASONE PROPIONATE 50 MCG/ACT SUSP 2 sprays per nostril bid for 1 week, then 1 spray bid FLUTICASONE PROPIONATE 82268868029 Active Jillina Anne GONZALEZN Active HYDRALAZINE HCL 25 MG ORAL TABS Take 1 tab BID. HYDRALAZINE HCL 89343580039 Active Jillina Anne GONZALEZN Active VITAMIN D3 78002 UNIT ORAL TABS 2 po weekly CHOLECALCIFEROL 88968229629 Active Robbie Busby MD Active OXYCODONE HCL ER 10 MG ORAL T12A 1 tab po 3 times qd. OXYCODONE HCL 00823605416 Active Robbie Busby MD Active NITROSTAT 0.4 MG SUBL PRN NITROGLYCERIN 70386207166 No Longer Active Robbie Busby MD Active LORATADINE 10 MG TABS 1 tablet by mouth daily for congestion and allergies. LORATADINE 99574129331 No Longer Active Robbie Busby MD Active FLONASE 50 MCG/ACT SUSP 1 spray each nostril twice daily for allergies and runny nose FLUTICASONE PROPIONATE 35268539864 No Longer Active Robbie Busby MD Active FIORICET 50-300-40 MG ORAL CAPS take 1 tab po qday prn migraines. [id number] 71713463038 No Longer Active Robbie Busby MD Active VITAMIN D3 41772 UNIT CAPS 2 CAPS PO WEEKLY CHOLECALCIFEROL 94492186577 No Longer Active Robbie Busby MD Active CYCLOBENZAPRINE HCL 10 MG TABS 1 tablet by mouth three times daily as needed for muscle spasm/pain for 10 days CYCLOBENZAPRINE HCL 72450721244 No Longer Active Robbie Busby MD Active PREDNISONE 20 MG TAB take 3 tabs daily for 3 days, 2 tabs daily for 3 days, 1 tab daily for 3 days, 1/2 tab daily for 4 days PREDNISONE 80660495274 No Longer Active Erin Garsia APRN Active CLONIDINE HCL 0.2 MG ORAL TABS 1 TAB BY MOUTH EVERY 8 HOURS 12/29 CLONIDINE HCL 43765363264 No Longer Active Erin Garsia APRN Active MECLIZINE HCL 25 MG TAB one 4 times a day as needed for dizziness MECLIZINE HCL 13783587358 No Longer Active Erin Garsia APRN Active SPIRONOLACTONE 25 MG TAB 4 tablets by mouth daily SPIRONOLACTONE 24155067306 No Longer Active Erin Garsia APRN Active LEVAQUIN 500 MG TAB 1 tablet by mouth daily for 7 days LEVOFLOXACIN 12445150347 No Longer Active Erin Garsia APRN Active BACTRIM DS 800-160 MG TAB 1 tab by mouth twice daily TRIMETHOPRIM-SULFAMETHOXAZOLE 74972963479 No Longer Active Robbie Busby MD Active HYDRALAZINE HCL 50 MG ORAL TABS TWO BY MOUTH THREE TIMES DAILY HYDRALAZINE HCL 22732002464 No Longer Active Andrellina Anne GONZALEZN Active HYDROCODONE-ACETAMINOPHEN 5-325 MG TABS 1 tab by mouth BID prn back pain 2013 HYDROCODONE-ACETAMINOPHEN 22223860030 No Longer Active Jillina Frazell NUCLEAR SUPERVISING OPERATOR Active HYDROCHLOROTHIAZIDE TABS Take one by mouth daily HYDROCHLOROTHIAZIDE TABS 82803035812 No Longer Active Jillina Frazell NUCLEAR SUPERVISING OPERATOR Active LAMISIL 125 MG ORAL PACK 1 TAB PO DAILY TERBINAFINE HCL 50546114820 No Longer Active Jillina Frazell NUCLEAR SUPERVISING OPERATOR Active TRILEPTAL 150 MG ORAL TABS 1 TAB PO Q HS OXCARBAZEPINE 18589036684 No Longer Active Jillina Frazell NUCLEAR SUPERVISING OPERATOR Active BETADINE 10 % EXT SOLN 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 POVIDONE-IODINE 68050749056 No Longer Active Jillina Frazell NUCLEAR SUPERVISING OPERATOR Active NYSTATIN 454260 UNIT/ML M/T SUSP 5mL po QID x 10 days NYSTATIN 87434708590 No Longer Active Erin Garsia APRN Active PREDNISONE 20 MG TAB 1 tablet twice daily for 2 days, then 1 tablet once daily for 2 days PREDNISONE 70214586593 No Longer Active Robbie Busby MD Active CEFDINIR 300 MG ORAL CAPS Take 1 cap po bid x 10 days CEFDINIR 92122024520 No Longer Active Robbie Busby MD Active AMLODIPINE BESYLATE 10 MG TABS 1 tablet by mouth daily AMLODIPINE BESYLATE 92809039504 Active Robbie Busby MD Active CARVEDILOL 25 MG TABS 1 & 1/2 TAB po BID CARVEDILOL 22948340277 Active Robbie Busby MD Active NEXIUM 40 MG CPDR 1 cap by mouth daily ESOMEPRAZOLE MAGNESIUM 09094275564 Active Robbie Busby MD Active PROTONIX 40 MG SOLR 1 po qday for acid reflux PANTOPRAZOLE SODIUM 87214261383 No Longer Active Gali Raida Active KEFLEX 500 MG CAP 1 po TID x 10 days CEPHALEXIN 71882088612 No Longer Active Robbie Busby MD Active TOPIRAMATE 50 MG ORAL TABS take 1 tab po BID for migraines. TOPIRAMATE 73952064641 Active Robbie Busby MD Active TEMAZEPAM 15 MG ORAL CAPS 1 TAB PO Q HS TEMAZEPAM 10641022502 Active Robbie Busby MD Active ALPRAZOLAM 2 MG ORAL TABS 1 TAB PO BID ALPRAZOLAM 78854132347 Active Robbie Busby MD Active FENOFIBRATE 145 MG TABS Take one by mouth daily FENOFIBRATE 52432664790 No Longer Active Robbie Busby MD Active SPIRONOLACTONE 50 MG TABS 1 tablet by mouth twice a day SPIRONOLACTONE 78147606835 No Longer Active Robbie Busby MD Active HYDRALAZINE HCL 25 MG TABS 1 tablet by mouth tid for hypertension HYDRALAZINE HCL 95001818324 No Longer Active Robbie Busby MD Active VIIBRYD 40 MG TABS take 1 tab po qday for depression. VILAZODONE HCL 24760435646 No Longer Active Robbie Busby MD Active TERBINAFINE HCL 250 MG TABS 1 tab po qday for foot infection 2014 TERBINAFINE HCL 89528127504 No Longer Active Robbie Busby MD Active GABAPENTIN 300 MG CAPS 1 po q hs for nerve pain GABAPENTIN 94389829635 Active Robbie Busby MD Active CHERATUSSIN AC 100-10 MG/5ML ORAL SOLN 7.5 mL PO q 4-6 hrs PRN cough GUAIFENESIN-CODEINE 29971419367 No Longer Active Robbie Busby MD Active AZITHROMYCIN 250 MG ORAL TABS 2 tablets PO today---then, 1 tablet PO daily x 4 more days (and 1 optional refill) AZITHROMYCIN 94955272978 No Longer Active Robbie Busby MD Active NORVASC 10 MG TAB 1 tablet by mouth daily AMLODIPINE BESYLATE 10078505171 No Longer Active Alex ALVAREZ Active IMDUR 60 MG TAB CR take 1 tab po qday for blood pressure ISOSORBIDE MONONITRATE Active Robbie Busby MD Active ISOSORBIDE DINITRATE 30 MG TABS Take one by mouth daily ISOSORBIDE DINITRATE 25719665122 No Longer Active Robbie Busby MD Active VIIBRYD 40 MG TABS 1 TA B PO DAILY VILAZODONE HCL 82512984048 Active Robbie Busby MD Active ZITHROMAX 250 MG TAB 2 po today, then 1 po q days 2-5 AZITHROMYCIN 13843804610 No Longer Active Robbie Busby MD Active [id number] 0.3 MG/24HR PTWK apply 2 patches q week for HTN CLONIDINE HCL 08240041102 Active Robbie Busby MD Active DOXAZOSIN MESYLATE 4 MG TABS Take one by mouth daily DOXAZOSIN MESYLATE 69614797100 Active Robbie Busby MD Active TOPROL XL 200 MG [id number] Take one by mouth daily METOPROLOL SUCCINATE 33058692827 Active Robbie Busby MD Active VENLAFAXINE HCL ER 150 MG [id number] Take one by mouth daily VENLAFAXINE HCL 30529550937 Active Robbie Busby MD Active LIPITOR 40 MG TABS Take one by mouth daily ATORVASTATIN CALCIUM 33710389702 Active Robbie Busby MD Active ISOSORBIDE DINITRATE 30 MG TABS Take one by mouth daily ISOSORBIDE DINITRATE 30 MG TABS 378331 ISOSORBIDE DINITRATE Inactive NORVASC 10 MG TAB 1 tablet by mouth daily NORVASC 10 MG TAB 703008 AMLODIPINE BESYLATE Inactive AZITHROMYCIN 250 MG ORAL TABS 2 tablets PO today---then, 1 tablet PO daily x 4 more days (and 1 optional refill) AZITHROMYCIN 250 MG ORAL TABS 1543307 AZITHROMYCIN Inactive CHERATUSSIN AC 100-10 MG/5ML ORAL SOLN 7.5 mL PO q 4-6 hrs PRN cough CHERATUSSIN AC 100-10 MG/5ML ORAL SOLN 448321 GUAIFENESIN- CODEINE Inactive VIIBRYD 40 MG TABS take 1 tab po qday for depression. VIIBRYD 40 MG TABS VILAZODONE HCL Inactive HYDRALAZINE HCL 25 MG TABS 1 tablet by mouth tid for hypertension HYDRALAZINE HCL 25 MG TABS 347791 HYDRALAZINE HCL Inactive SPIRONOLACTONE 50 MG TABS 1 tablet by mouth twice a day SPIRONOLACTONE 50 MG TABS 546380 SPIRONOLACTONE Inactive FENOFIBRATE 145 MG TABS Take one by mouth daily FENOFIBRATE 145 MG TABS 574267 FENOFIBRATE Inactive PROTONIX 40 MG SOLR 1 po qday for acid reflux PROTONIX 40 MG SOLR 670137 PANTOPRAZOLE SODIUM Inactive CEFDINIR 300 MG ORAL CAPS Take 1 cap po bid x 10 days CEFDINIR 300 MG ORAL CAPS 897507 CEFDINIR Inactive PREDNISONE 20 MG TAB 1 tablet twice daily for 2 days, then 1 tablet once daily for 2 days PREDNISONE 20 MG TAB 922027 PREDNISONE Inactive NYSTATIN 717686 UNIT/ML M/T SUSP 5mL po QID x 10 days NYSTATIN 308688 UNIT/ML M/T SUSP 194613 NYSTATIN Inactive BETADINE 10 % EXT SOLN 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 BETADINE 10 % EXT SOLN 5074012 POVIDONE-IODINE Inactive TRILEPTAL 150 MG ORAL TABS 1 TAB PO Q HS TRILEPTAL 150 MG ORAL TABS 704796 OXCARBAZEPINE Inactive LAMISIL 125 MG ORAL PACK 1 TAB PO DAILY LAMISIL 125 MG ORAL PACK TERBINAFINE HCL Inactive HYDROCHLOROTHIAZIDE TABS Take one by mouth daily HYDROCHLOROTHIAZIDE TABS HYDROCHLOROTHIAZIDE TABS Inactive HYDROCODONE-ACETAMINOPHEN 5-325 MG TABS 1 tab by mouth BID prn back pain 2013 HYDROCODONE-ACETAMINOPHEN 5-325 MG TABS 485754 HYDROCODONE -ACETAMINOPHEN Inactive HYDRALAZINE HCL 50 MG ORAL TABS TWO BY MOUTH THREE TIMES DAILY HYDRALAZINE HCL 50 MG ORAL TABS 407649 HYDRALAZINE HCL Inactive LEVAQUIN 500 MG TAB 1 tablet by mouth daily for 7 days LEVAQUIN 500 MG TAB 115790 LEVOFLOXACIN Inactive SPIRONOLACTONE 25 MG TAB 4 tablets by mouth daily SPIRONOLACTONE 25 MG TAB 972566 SPIRONOLACTONE Inactive MECLIZINE HCL 25 MG TAB one 4 times a day as needed for dizziness MECLIZINE HCL 25 MG TAB 127783 MECLIZINE HCL Inactive CLONIDINE HCL 0.2 MG ORAL TABS 1 TAB BY MOUTH EVERY 8 HOURS 12/29 CLONIDINE HCL 0.2 MG ORAL TABS 350172 CLONIDINE HCL Inactive CYCLOBENZAPRINE HCL 10 MG TABS 1 tablet by mouth three times daily as needed for muscle spasm/pain for 10 days CYCLOBENZAPRINE HCL 10 MG TABS 811068 CYCLOBENZAPRINE HCL Inactive VITAMIN D3 89995 UNIT CAPS 2 CAPS PO WEEKLY VITAMIN D3 82982 UNIT CAPS CHOLECALCIFEROL Inactive FIORICET 50-300-40 MG ORAL CAPS take 1 tab po qday prn migraines. FIORICET 50-300-40 MG ORAL CAPS 741118 [id number] Inactive FLONASE 50 MCG/ACT SUSP 1 spray each nostril twice daily for allergies and runny nose FLONASE 50 MCG/ACT SUSP 6719145 FLUTICASONE PROPIONATE Inactive LORATADINE 10 MG TABS 1 tablet by mouth daily for congestion and allergies. LORATADINE 10 MG TABS 352714 LORATADINE Inactive NITROSTAT 0.4 MG SUBL PRN NITROSTAT 0.4 MG SUBL 504411 NITROGLYCERIN Inactive ZITHROMAX 250 MG TAB 2 po today, then 1 po q days 2-5 ZITHROMAX 250 MG TAB 6302597 AZITHROMYCIN Inactive TERBINAFINE HCL 250 MG TABS 1 tab po qday for foot infection 2014 TERBINAFINE HCL 250 MG TABS 514689 TERBINAFINE HCL Inactive KEFLEX 500 MG CAP 1 po TID x 10 days KEFLEX 500 MG CAP 879873 CEPHALEXIN Inactive BACTRIM DS 800-160 MG TAB 1 tab by mouth twice daily BACTRIM DS 800-160 MG TAB 047607 TRIMETHOPRIM-SULFAMETHOXAZOLE Inactive PREDNISONE 20 MG TAB take 3 tabs daily for 3 days, 2 tabs daily for 3 days, 1 tab daily for 3 days, 1/2 tab daily for 4 days PREDNISONE 20 MG TAB 047049 PREDNISONE Inactive Advance Directives Directive Description Start [...] % 11.6-14.8 platelet count 229 10^3/MM^3 10*3/mm3 302-208 0737/09/06 mean corpuscular volume, RBC 90 fL 80-97 hematocrit, blood 42.4 % 41.0-53.0 hemoglobin, blood 14.4 g/dL 13.5-17.5 erythrocyte (RBC) count 4.72 10^6/MM^3 10*6/mm3 4.69-6.13 leukocyte count, blood 9.7 10^3/MM^3 10*3/mm3 4.6-10.2 Lab Report: CBC W/DIFF, Comp. Metabolic Panel, CKI, UADIP W/MICRO, AUTO - Chemistry protein, total urine random 1+ mg/dL Negative RBC, urine, dipstick 2+ Negative sodium, serum 142 mmol/L 875-841 8657/07/17 carbon dioxide, venous blood 28.2 mmol/L 21.0-32.0 [...] 0.00-1.00 creatine kinase, serum 275 U/L 26-192 Lab Report: CBC W/DIFF, Comp. Metabolic Panel, CKI, UADIP W/MICRO, AUTO - Hematology mean corpuscular hemoglobin concentration, RBC 33.6 G/DL % 31.8- 35.4 red blood cell distribution width 13.6 % 11.6-14.8 platelet count 239 10^3/MM^3 10*3/mm3 796-007 8540/07/17 leukocyte count, blood 10.9 10^3/MM^3 10*3/mm3 4.6-10.2 [...] % 11.0-15.0 platelet count 185 THOUSAND/UL 10*3/mm3 791-372 5268/04/14 mean platelet volume 10.9 fL 7.5-12.5 Lab Report: LIPID PANEL, TSH/899, T4, FREE/866 - Chemistry cholesterol, serum 220 mg/dL 865-681 5495/04/14 HDL cholesterol, serum 30 mg/dL > OR=40 [...] 1.80 ng/mL 0.00-4.00 Lab Report: VITAMIN D, 25-HYDROXY/80582 - Chemistry vitamin D 25-hydroxy, serum 25 ng/mL 30-100 Office Visit: Confusion, dizziness after fall - Basic LDL target level 130 mg/dL Office Visit: Confusion, dizziness after fall - Chemistry HDL cholesterol, serum, target level 40 mg/dL triglyceride, target level 150 mg/dL cholesterol, target level 200 mg/dL Encounters Code Encounter Date Provider Facility CPT-22967 Level 4 Est. Patient 15:18:19 CDT Robbie Busby MD [facility] CPT-04375 Level 3 Est. Patient 09:00:37 CDT Rober Rodríguez [facility] CPT-47273 Level 3 Est. Patient 16:07:10 CDT Robbie Busby MD [facility] CPT-15459 Level 4 Est. Patient 11:56:16 CDT Erin Garsia [facility] CPT-65370 Level 3 Est. Patient 17:48:02 CDT Robbie Busby MD [facility] CPT-63137 Level 4 Est. 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 CPT-78165 Level 3 Est. Patient 09:16:37 CDT Robbie Busby MD [facility] CPT-75847 Level 3 Est. Patient 19:38:43 CDT Robbie Busby MD [facility] CPT-51921 Level 3 Est. Patient 11:53:38 CDT Robbie Busby MD [facility] CPT-94959 Level 4 Est. Patient 12:52:22 CDT Rober Rodríguez APRN [facility] CPT-49270 Level 4 Est. Patient 22:55:17 CDT Robbie Busby MD [facility] CPT-01805 Level 3 Est. Patient 12:38:24 CDT Desmond Diaz DO [facility] CPT-80613 Level 4 Est. 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 Patient 14:50:10 CDT Robbie Busby MD [facility]-27601 Level 4 Est. Patient 23:30:43 CDT Robbie Busby MD [facility] CPT-33751 Level 4 Est. Patient 10:30:43 CDT Robbie Busby MD [facility] CPT-00682 Level 3 Est. Patient 17:08:12 CDT Alex ALVAREZ [facility] CPT-51633 Level 4 Est. Patient 17:51:38 CDT Robbie Busby MD [facility] CPT-85809 Level 4 Est. Patient 14:00:21 CDT Robbie Busby MD [facility] CPT-43457 Level 4 Est. Patient 12:46:48 CDT Robbie Busby MD [facility] CPT-84048 Level 4 Est. Patient 13:34:33 CDT Robbie Busby MD [facility] CPT-64199 Level 4 Est. Patient 16:58:28 CDT Robbie Busby MD [facility] CPT-02366 Level 3 Est. Patient 19:36:53 CDT Alex ALVAREZ [facility] CPT-49933 Level 3 Est. Patient 12:58:15 CDT Robbie Busby MD [facility] Procedures Code Procedure Name Date Entry Date Standard Description CPT-G0439 [facility] Annual Wellness Exam 16:47:44 CDT CPT-J1071 Depo Testosterone 200mg 09:06:28 CDT CPT-56800 Abx/Therapy Injection 09:06:28 CDT CPT-J1071 Depo Testosterone 200mg 08:30:01 CDT CPT-00487 Abx/Therapy Injection 08:30:01 CDT CPT-J1071 Depo Testosterone 200mg 08:24:00 CDT CPT-40548 Abx/Therapy Injection 08:24:00 CDT CPT-64769 Venipuncture Draw Fee 14:39:06 CDT CPT-55179 Ribs unilateral 2V - XRAY USE ONLY 12:10:11 CDT CPT-78542 First Vx - Ix admin for Medicare patients 16:32:53 CDT CPT-07505 Boostrix Intramuscular Suspension 5-2.5-18.5 16:32:53 CDT CPT-98013 TB Skin Test 11:42:28 CDT CPT-02701 Tdap 7yrs or > 11:42:28 CDT CPT-J0696 Rocephin 1000 mg (Ceftriaxone) 17:43:43 EXHAUST AND MUFFLER REPAIRER CPT-J1040 Depo Medrol 80 mg (Methyl Prednisolone Acetate) 17:43: 43 EXHAUST AND MUFFLER REPAIRER CPT-J1100 Decadron 8mg (Dexamethasone) 17:43:42 EXHAUST AND MUFFLER REPAIRER CPT-38896 Abx/Therapy Injection 17:43:42 EXHAUST AND MUFFLER REPAIRER CPT-07817 Abx/Therapy Injection 17:43:42 EXHAUST AND MUFFLER REPAIRER CPT-J1040 Depo Medrol 80 mg (Methyl Prednisolone Acetate) 09:43: 34 EXHAUST AND MUFFLER REPAIRER CPT-J1100 Decadron 8mg (Dexamethasone) 09:43:34 EXHAUST AND MUFFLER REPAIRER CPT-J0696 Rocephin 1gm Inj Solr 09:43:34 EXHAUST AND MUFFLER REPAIRER CPT-56331 Wound Culture - LAB USE ONLY 14:00:21 CDT CPT-I/D I/D Abscess 09:16:37 CDT CPT-85061 Venipuncture Draw Fee 15:20:23 CDT CPT-74675 Microalbumin - LAB USE ONLY 16:02:19 CDT CPT-51209 CBC - LAB USE ONLY 16:02:19 CDT CPT-63010 Venipuncture Draw Fee 16:02:19 CDT CPT-G0438 Initial Annual Wellness Exam 08:10:28 CDT CPT-43907 Venipuncture Draw Fee 13:07:17 CDT CPT-G0008 Administration of Influenza Virus Vaccine 16:09:59 CDT CPT-96262 Fluzone Quadrivalent Intramuscular Suspension 0.5 ML 16: 09:59 CDT CPT-99787 Spec Collection and Handling Fee 15:05:50 CDT
--- OUTSIDE RECORDS SUMMARY | 2018-04-18 11:29 | XMS REPORT | Clinical Summary ---
Author Author Admin, [facility] Organization [facility] Address Unknown Phone Unavailable Allergies, Adverse Reactions, Alerts Allergy Name Reaction Description Start Date Severity Status Provider No Known Allergies aLshanda Frederick MA Conditions or Problems Problem Name [...] MD Dermatophytosis of nail Dizziness 780.4 Active Robbei Busby MD Dizziness and giddiness Folliculitis 704.8 [...] Status Provider Patient Instruction GUAIFENESIN 600 MG [id number] 1 tab po q am GUAIFENESIN 96240610130 Active Jillina Frazell [employer]SFER [employer]ENT Active FLUTICASONE PROPIONATE 50 MCG/ACT SUSP 2 sprays per nostril bid for 1 week, then 1 spray bid FLUTICASONE PROPIONATE 20885921441 Active Jillina Frazell TRANSFER AGENT Active HYDRALAZINE HCL 25 MG ORAL TABS Take 1 tab BID. HYDRALAZINE HCL 61922376487 Active Jillina Frazell TRANSFER AGENT Active VITAMIN D3 68974 UNIT ORAL TABS 2 po weekly CHOLECALCIFEROL 39655898564 Active KATHIE MoncadaNara Active OXYCODONE HCL ER 10 MG ORAL T12A 1 tab po 3 times qd. OXYCODONE HCL 37789751655 Active Robbie Busby MD Active NITROSTAT 0.4 MG SUBL PRN NITROGLYCERIN 88109737614 No Longer Active Robbie Busby MD Active LORATADINE 10 MG TABS 1 tablet by mouth daily for congestion and allergies. LORATADINE 65708113083 No Longer Active Robbie Busby MD Active FLONASE 50 MCG/ACT SUSP 1 spray each nostril twice daily for allergies and runny nose FLUTICASONE PROPIONATE 88366621678 No Longer Active Robbie Busby MD Active FIORICET 50-300-40 MG ORAL CAPS take 1 tab po qday prn migraines. [id number] 62291026100 No Longer Active Robbie Busby MD Active VITAMIN D3 24494 UNIT CAPS 2 CAPS PO WEEKLY CHOLECALCIFEROL 71316401083 No Longer Active Robbie Busby MD Active CYCLOBENZAPRINE HCL 10 MG TABS 1 tablet by mouth three times daily as needed for muscle spasm/pain for 10 days CYCLOBENZAPRINE HCL 88895416556 No Longer Active Robbie Busby MD Active PREDNISONE 20 MG TAB take 3 tabs daily for 3 days, 2 tabs daily for 3 days, 1 tab daily for 3 days, 1/2 tab daily for 4 days PREDNISONE 42322487952 No Longer Active Erin Garsia APRN Active CLONIDINE HCL 0.2 MG ORAL TABS 1 TAB BY MOUTH EVERY 8 HOURS 12/29 CLONIDINE HCL 25495973478 No Longer Active Erin Garsia APRN Active MECLIZINE HCL 25 MG TAB one 4 times a day as needed for dizziness MECLIZINE HCL 42543323052 No Longer Active Erin Garsia APRN Active SPIRONOLACTONE 25 MG TAB 4 tablets by mouth daily SPIRONOLACTONE 87815171758 No Longer Active Erin Garsia APRN Active LEVAQUIN 500 MG TAB 1 tablet by mouth daily for 7 days LEVOFLOXACIN 32606249681 No Longer Active Erin Garsia APRN Active BACTRIM DS 800-160 MG TAB 1 tab by mouth twice daily TRIMETHOPRIM-SULFAMETHOXAZOLE 93180803782 No Longer Active Robbie Busby MD Active HYDRALAZINE HCL 50 MG ORAL TABS TWO BY MOUTH THREE TIMES DAILY HYDRALAZINE HCL 65000947025 No Longer Active Jillina Frazell [employer]SFER [employer]ENT Active HYDROCODONE-ACETAMINOPHEN 5-325 MG TABS 1 tab by mouth BID prn back pain 2013 HYDROCODONE-ACETAMINOPHEN 66991048995 No Longer Active Jillina Frazell TRANSFER AGENT Active HYDROCHLOROTHIAZIDE TABS Take one by mouth daily HYDROCHLOROTHIAZIDE TABS 88124818755 No Longer Active Jillina Frazell TRANSFER AGENT Active LAMISIL 125 MG ORAL PACK 1 TAB PO DAILY TERBINAFINE HCL 11627793018 No Longer Active Jillina Frazell TRANSFER AGENT Active TRILEPTAL 150 MG ORAL TABS 1 TAB PO Q HS OXCARBAZEPINE 42514896044 No Longer Active Jillina Frazell [employer]SFER AGENT Active BETADINE 10 % EXT SOLN 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 POVIDONE-IODINE 02211954960 No Longer Active Jillina Frakierstenl [employer]SFER AGENT Active NYSTATIN 317517 UNIT/ML M/T SUSP 5mL po QID x 10 days NYSTATIN 63341287230 No Longer Active Erin Garsia APRN Active PREDNISONE 20 MG TAB 1 tablet twice daily for 2 days, then 1 tablet once daily for 2 days PREDNISONE 90424225021 No Longer Active Robbie Busby MD Active CEFDINIR 300 MG ORAL CAPS Take 1 cap po bid x 10 days CEFDINIR 50782665780 No Longer Active Robbie Busby MD Active AMLODIPINE BESYLATE 10 MG TABS 1 tablet by mouth daily AMLODIPINE BESYLATE 52478813510 Active Robbie Busby MD Active CARVEDILOL 25 MG TABS 1 & 1/2 TAB po BID CARVEDILOL 18563790338 Active Robbie Busby MD Active NEXIUM 40 MG CPDR 1 cap by mouth daily ESOMEPRAZOLE MAGNESIUM 38276575634 Active Robbie Busby MD Active PROTONIX 40 MG SOLR 1 po qday for acid reflux PANTOPRAZOLE SODIUM 78363615153 No Longer Active Gali Raida Active KEFLEX 500 MG CAP 1 po TID x 10 days CEPHALEXIN 88546357919 No Longer Active Robbie Busby MD Active TOPIRAMATE 50 MG ORAL TABS take 1 tab po BID for migraines. TOPIRAMATE 84309746808 Active Robbie Busby MD Active TEMAZEPAM 15 MG ORAL CAPS 1 TAB PO Q HS TEMAZEPAM 38676480638 Active Robbie Busby MD Active ALPRAZOLAM 2 MG ORAL TABS 1 TAB PO BID ALPRAZOLAM 11302005547 Active Robbie Busby MD Active FENOFIBRATE 145 MG TABS Take one by mouth daily FENOFIBRATE 61876991649 No Longer Active Robbie Busby MD Active SPIRONOLACTONE 50 MG TABS 1 tablet by mouth twice a day SPIRONOLACTONE 32610562323 No Longer Active Robbie Busby MD Active HYDRALAZINE HCL 25 MG TABS 1 tablet by mouth tid for hypertension HYDRALAZINE HCL 42429968025 No Longer Active Robbie Busby MD Active VIIBRYD 40 MG TABS take 1 tab po qday for depression. VILAZODONE HCL 86661388790 No Longer Active Robbie Busby MD Active TERBINAFINE HCL 250 MG TABS 1 tab po qday for foot infection 2014 TERBINAFINE HCL 28716257691 No Longer Active Robbie Busby MD Active GABAPENTIN 300 MG CAPS 1 po q hs for nerve pain GABAPENTIN 00305020085 Active Robbie Busby MD Active CHERATUSSIN AC 100-10 MG/5ML ORAL SOLN 7.5 mL PO q 4-6 hrs PRN cough GUAIFENESIN-CODEINE 43824553815 No Longer Active Robbie Busby MD Active AZITHROMYCIN 250 MG ORAL TABS 2 tablets PO today---then, 1 tablet PO daily x 4 more days (and 1 optional refill) AZITHROMYCIN 29747195954 No Longer Active Robbie Busby MD Active NORVASC 10 MG TAB 1 tablet by mouth daily AMLODIPINE BESYLATE 62765226095 No Longer Active Alex ALVAREZ Active IMDUR 60 MG TAB CR take 1 tab po qday for blood pressure ISOSORBIDE MONONITRATE Active Robbie Busby MD Active ISOSORBIDE DINITRATE 30 MG TABS Take one by mouth daily ISOSORBIDE DINITRATE 96331276632 No Longer Active Robbie Busby MD Active VIIBRYD 40 MG TABS 1 TA B PO DAILY VILAZODONE HCL 73156660058 Active Robbie Busby MD Active ZITHROMAX 250 MG TAB 2 po today, then 1 po q days 2-5 AZITHROMYCIN 10500642541 No Longer Active Robbie Busby MD Active [id number]-[id number]-5 0.3 MG/24HR PTWK apply 2 patches q week for HTN CLONIDINE HCL 69140113677 Active Robbie Busby MD Active DOXAZOSIN MESYLATE 4 MG TABS Take one by mouth daily DOXAZOSIN MESYLATE 25112292490 Active Robbie Busby MD Active TOPROL XL 200 MG [id number]-[id number] Take one by mouth daily METOPROLOL SUCCINATE 67592431694 Active Robbie Busby MD Active VENLAFAXINE HCL ER 150 MG [id number]-SPE Take one by mouth daily VENLAFAXINE HCL 41791693011 Active Robbie Busby MD Active LIPITOR 40 MG TABS Take one by mouth daily ATORVASTATIN CALCIUM 69287016418 Active Robbie Busby MD Active ISOSORBIDE DINITRATE 30 MG TABS Take one by mouth daily ISOSORBIDE DINITRATE 30 MG TABS 380490 ISOSORBIDE DINITRATE Inactive NORVASC 10 MG TAB 1 tablet by mouth daily NORVASC 10 MG TAB 084692 AMLODIPINE BESYLATE Inactive AZITHROMYCIN 250 MG ORAL TABS 2 tablets PO today---then, 1 tablet PO daily x 4 more days (and 1 optional refill) AZITHROMYCIN 250 MG ORAL TABS 4681282 AZITHROMYCIN Inactive CHERATUSSIN AC 100-10 MG/5ML ORAL SOLN 7.5 mL PO q 4-6 hrs PRN cough CHERATUSSIN AC 100-10 MG/5ML ORAL SOLN 845388 GUAIFENESIN- CODEINE Inactive VIIBRYD 40 MG TABS take 1 tab po qday for depression. VIIBRYD 40 MG TABS VILAZODONE HCL Inactive HYDRALAZINE HCL 25 MG TABS 1 tablet by mouth tid for hypertension HYDRALAZINE HCL 25 MG TABS 086600 HYDRALAZINE HCL Inactive SPIRONOLACTONE 50 MG TABS 1 tablet by mouth twice a day SPIRONOLACTONE 50 MG TABS 389060 SPIRONOLACTONE Inactive FENOFIBRATE 145 MG TABS Take one by mouth daily FENOFIBRATE 145 MG TABS 073024 FENOFIBRATE Inactive PROTONIX 40 MG SOLR 1 po qday for acid reflux PROTONIX 40 MG SOLR 314941 PANTOPRAZOLE SODIUM Inactive CEFDINIR 300 MG ORAL CAPS Take 1 cap po bid x 10 days CEFDINIR 300 MG ORAL CAPS 046499 CEFDINIR Inactive PREDNISONE 20 MG TAB 1 tablet twice daily for 2 days, then 1 tablet once daily for 2 days PREDNISONE 20 MG TAB 426779 PREDNISONE Inactive NYSTATIN 691647 UNIT/ML M/T SUSP 5mL po QID x 10 days NYSTATIN 027931 UNIT/ML M/T SUSP 065436 NYSTATIN Inactive BETADINE 10 % EXT SOLN 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 BETADINE 10 % EXT SOLN 8964543 POVIDONE-IODINE Inactive TRILEPTAL 150 MG ORAL TABS 1 TAB PO Q HS TRILEPTAL 150 MG ORAL TABS 583744 OXCARBAZEPINE Inactive LAMISIL 125 MG ORAL PACK 1 TAB PO DAILY LAMISIL 125 MG ORAL PACK TERBINAFINE HCL Inactive HYDROCHLOROTHIAZIDE TABS Take one by mouth daily HYDROCHLOROTHIAZIDE TABS HYDROCHLOROTHIAZIDE TABS Inactive HYDROCODONE-ACETAMINOPHEN 5-325 MG TABS 1 tab by mouth BID prn back pain 2013 HYDROCODONE-ACETAMINOPHEN 5-325 MG TABS 137350 HYDROCODONE -ACETAMINOPHEN Inactive HYDRALAZINE HCL 50 MG ORAL TABS TWO BY MOUTH THREE TIMES DAILY HYDRALAZINE HCL 50 MG ORAL TABS 181206 HYDRALAZINE HCL Inactive LEVAQUIN 500 MG TAB 1 tablet by mouth daily for 7 days LEVAQUIN 500 MG TAB 542600 LEVOFLOXACIN Inactive SPIRONOLACTONE 25 MG TAB 4 tablets by mouth daily SPIRONOLACTONE 25 MG TAB 433955 SPIRONOLACTONE Inactive MECLIZINE HCL 25 MG TAB one 4 times a day as needed for dizziness MECLIZINE HCL 25 MG TAB 411215 MECLIZINE HCL Inactive CLONIDINE HCL 0.2 MG ORAL TABS 1 TAB BY MOUTH EVERY 8 HOURS 12/29 CLONIDINE HCL 0.2 MG ORAL TABS 862381 CLONIDINE HCL Inactive CYCLOBENZAPRINE HCL 10 MG TABS 1 tablet by mouth three times daily as needed for muscle spasm/pain for 10 days CYCLOBENZAPRINE HCL 10 MG TABS 616815 CYCLOBENZAPRINE HCL Inactive VITAMIN D3 85659 UNIT CAPS 2 CAPS PO WEEKLY VITAMIN D3 03754 UNIT CAPS CHOLECALCIFEROL Inactive FIORICET 50-300-40 MG ORAL CAPS take 1 tab po qday prn migraines. FIORICET 50-300-40 MG ORAL CAPS 537597 [id number] Inactive FLONASE 50 MCG/ACT SUSP 1 spray each nostril twice daily for allergies and runny nose FLONASE 50 MCG/ACT SUSP 3032769 FLUTICASONE PROPIONATE Inactive LORATADINE 10 MG TABS 1 tablet by mouth daily for congestion and allergies. LORATADINE 10 MG TABS 091050 LORATADINE Inactive NITROSTAT 0.4 MG SUBL PRN NITROSTAT 0.4 MG SUBL 919572 NITROGLYCERIN Inactive ZITHROMAX 250 MG TAB 2 po today, then 1 po q days 2-5 ZITHROMAX 250 MG TAB 1242128 AZITHROMYCIN Inactive TERBINAFINE HCL 250 MG TABS 1 tab po qday for foot infection 2014 TERBINAFINE HCL 250 MG TABS 746774 TERBINAFINE HCL Inactive KEFLEX 500 MG CAP 1 po TID x 10 days KEFLEX 500 MG CAP 568312 CEPHALEXIN Inactive BACTRIM DS 800-160 MG TAB 1 tab by mouth twice daily BACTRIM DS 800-160 MG TAB 510537 TRIMETHOPRIM-SULFAMETHOXAZOLE Inactive PREDNISONE 20 MG TAB take 3 tabs daily for 3 days, 2 tabs daily for 3 days, 1 tab daily for 3 days, 1/2 tab daily for 4 days PREDNISONE 20 MG TAB 350329 PREDNISONE Inactive Advance Directives Directive Description Start [...] AUTO - Chemistry sodium, serum 142 mmol/L 709-534 4827/07/17 carbon dioxide, venous blood 28.2 mmol/L 21.0-32.0 [...] - Urinalysis glucose, urine, semiquantitative Negative Negative urobilinogen, urine, semiquantitative (dipstick) 0.2 E.U./dL Normal leukocyte esterase, urine, by dipstick Negative Negative nitrite, urine, semiquantitative Negative Negative ketones, urine, by [...] % 11.0-15.0 platelet count 185 THOUSAND/UL 10*3/mm3 268-818 9692/04/14 mean platelet volume 10.9 fL 7.5-12.5 Lab Report: LIPID PANEL, TSH/899, T4, FREE/866 - Chemistry cholesterol/HDL ratio, serum 7.3 (calc) < OR=5.0 LDL cholesterol, serum SEE NOTE mg/dL (calc) mg/dL <130 triglyceride, serum, fasting 466 mg/dL <150 HDL cholesterol, serum 30 mg/dL > OR=40 cholesterol, serum 220 mg/dL 125-200 Lab Report: MICROALB/CREAT W/RATIO - Chemistry albumin/creatinine [...] mg/dL Encounters Code Encounter Date Provider Facility CPT-63964 Level 3 Est. Patient 09:00:37 CDT Rober Rodríguez [facility] CPT-95908 Level 3 Est. Patient 16:07:10 CDT Robbie Busby MD [facility] CPT-17546 Level 4 Est. Patient 11:56:16 CDT Erin Garsia [facility] CPT-99980 Level 3 Est. Patient 17:48:02 CDT Robbie Busby MD [facility] CPT-09845 Level 4 Est. Patient 12:00:49 SPICE CLEANER Rober Rodríguez [facility] CPT-11259 Level 3 Est. Patient 09:16:37 CDT Robbie Busby MD [facility] CPT-10631 Level 3 Est. Patient 19:38:43 CDT Robbie Busby MD [facility] CPT-46380 Level 3 Est. Patient 11:53:38 CDT Robbie Busby MD [facility] CPT-35898 Level 4 Est. Patient 12:52:22 CDT Rober Rodríguez [facility] CPT-47438 Level 4 Est. Patient 22:55:17 CDT Robbie Busby MD [facility] CPT-34237 Level 3 Est. Patient 12:38:24 CDT Desmond Diaz DO [facility] CPT-08822 Level 4 Est. Patient 11:25:03 SPICE CLEANER Robbie Busby MD [facility] CPT-13171 Level 4 Est. Patient 14:50:10 CDT Robbie Busby MD [facility] CPT-22617 Level 4 Est. Patient 23:30:43 CDT Robbie Busby MD [facility] CPT-77576 Level 4 Est. Patient 10:30:43 CDT Robbie Busby MD [facility] CPT-37353 Level 3 Est. Patient 17:08:12 CDT Alex ALVAREZ [facility] CPT-79876 Level 4 Est. Patient 17:51:38 CDT Robbie Busby MD [facility] CPT-22060 Level 4 Est. Patient 14:00:21 CDT Robbie Busby MD [facility] CPT-44128 Level 4 Est. Patient 12:46:48 CDT Robbie Busby MD [facility] CPT-53225 Level 4 Est. Patient 13:34:33 CDT Robbie Busby MD [facility] CPT-77462 Level 4 Est. Patient 16:58:28 CDT Robbie Busby MD [facility] CPT-04938 Level 3 Est. Patient 19:36:53 CDT Alex ALVAREZ [facility] CPT-17783 Level 3 Est. Patient 12:58:15 CDT Robbie Busby MD [facility] Procedures Code Procedure Name Date Entry Date Standard Description CPT-32182 Venipuncture Draw Fee 14:39:06 CDT CPT-82717 Ribs unilateral 2V - XRAY USE ONLY 12:10:11 CDT CPT-79751 First Vx - Ix admin for Medicare patients 16:32:53 CDT CPT-87276 Boostrix Intramuscular Suspension 5-2.5-18.5 16:32:53 CDT CPT-69320 TB Skin Test 11:42:28 CDT CPT-89210 Tdap 7yrs or > 11:42:28 CDT CPT-J0696 Rocephin 1000 mg (Ceftriaxone) 17:43:43 SPICE CLEANER CPT-J1040 Depo Medrol 80 mg (Methyl Prednisolone Acetate) 17:43: 43 SPICE CLEANER CPT-J1100 Decadron 8mg (Dexamethasone) 17:43:42 SPICE CLEANER CPT-50727 Abx/Therapy Injection 17:43:42 SPICE CLEANER CPT-58103 Abx/Therapy Injection 17:43:42 SPICE CLEANER CPT-J1040 Depo Medrol 80 mg (Methyl Prednisolone Acetate) 09:43: 34 SPICE CLEANER CPT-J1100 Decadron 8mg (Dexamethasone) 09:43:34 SPICE CLEANER CPT-J0696 Rocephin 1gm Inj Solr 09:43:34 SPICE CLEANER CPT-11261 Wound Culture - LAB USE ONLY 14:00:21 CDT CPT-I/D I/D Abscess 09:16:37 CDT CPT-50417 Venipuncture Draw Fee 15:20:23 CDT CPT-27197 Microalbumin - LAB USE ONLY 16:02:19 CDT CPT-04785 CBC - LAB USE ONLY 16:02:19 CDT CPT-33237 Venipuncture Draw Fee 16:02:19 CDT CPT-G0438 Initial Annual Wellness Exam 08:10:28 CDT CPT-63458 Venipuncture Draw Fee 13:07:17 CDT CPT-G0008 Administration of Influenza Virus Vaccine 16:09:59 CDT CPT-03933 Fluzone Quadrivalent Intramuscular Suspension 0.5 ML 16: 09:59 CDT CPT-19250 Spec Collection and Handling Fee 15:05:50 CDT
--- OUTSIDE RECORDS SUMMARY | 2018-04-18 11:30 | XMS REPORT | Clinical Summary ---
Author Author Admin, [facility] Organization [facility] Address Unknown Phone Unavailable Allergies, Adverse Reactions, [...] 2 weeks for low testosterone TESTOSTERONE CYPIONATE 53111941928 Active Zulema Blank LPN Active CYCLOBENZAPRINE HCL 10 MG ORAL TABS 1 po TID PRN muscle spasm/pain for 10 days CYCLOBENZAPRINE HCL 46957078300 Active JONATHAN Moncada Active GUAIFENESIN 600 MG [id number] 1 tab po q am GUAIFENESIN 65397487125 Active Jillina Frazelariana GONZALEZN Active FLUTICASONE PROPIONATE 50 MCG/ACT SUSP 2 sprays per nostril bid for 1 week, then 1 spray bid FLUTICASONE PROPIONATE 35677288207 Active Jillina Anne GONZALEZN Active HYDRALAZINE HCL 25 MG ORAL TABS Take 1 tab BID. HYDRALAZINE HCL 48275723198 Active Jillina Anne GONZALEZN Active VITAMIN D3 09097 UNIT ORAL TABS 2 po weekly CHOLECALCIFEROL 44653383906 Active Robbie Busby MD Active OXYCODONE HCL ER 10 MG ORAL T12A 1 tab po 3 times qd. OXYCODONE HCL 14450152842 Active Robbie Busby MD Active NITROSTAT 0.4 MG SUBL PRN NITROGLYCERIN 04415582883 No Longer Active Robbie Busby MD Active LORATADINE 10 MG TABS 1 tablet by mouth daily for congestion and allergies. LORATADINE 65560312107 No Longer Active Robbie Busby MD Active FLONASE 50 MCG/ACT SUSP 1 spray each nostril twice daily for allergies and runny nose FLUTICASONE PROPIONATE 13440701564 No Longer Active Robbie Busby MD Active FIORICET 50-300-40 MG ORAL CAPS take 1 tab po qday prn migraines. [id number] 38131357864 No Longer Active Robbie Busby MD Active VITAMIN D3 75779 UNIT CAPS 2 CAPS PO WEEKLY CHOLECALCIFEROL 44934424000 No Longer Active Robbie Busby MD Active CYCLOBENZAPRINE HCL 10 MG TABS 1 tablet by mouth three times daily as needed for muscle spasm/pain for 10 days CYCLOBENZAPRINE HCL 94343590600 No Longer Active Robbie Busby MD Active PREDNISONE 20 MG TAB take 3 tabs daily for 3 days, 2 tabs daily for 3 days, 1 tab daily for 3 days, 1/2 tab daily for 4 days PREDNISONE 17794385714 No Longer Active Erin Garsia APRN Active CLONIDINE HCL 0.2 MG ORAL TABS 1 TAB BY MOUTH EVERY 8 HOURS 12/29 CLONIDINE HCL 65866166456 No Longer Active Erin Garsia APRN Active MECLIZINE HCL 25 MG TAB one 4 times a day as needed for dizziness MECLIZINE HCL 14668838443 No Longer Active Erin Garsia APRN Active SPIRONOLACTONE 25 MG TAB 4 tablets by mouth daily SPIRONOLACTONE 90737714419 No Longer Active Erin Garsia APRN Active LEVAQUIN 500 MG TAB 1 tablet by mouth daily for 7 days LEVOFLOXACIN 38398473878 No Longer Active Erin Garsia APRN Active BACTRIM DS 800-160 MG TAB 1 tab by mouth twice daily TRIMETHOPRIM-SULFAMETHOXAZOLE 35509279226 No Longer Active Robbie Busby MD Active HYDRALAZINE HCL 50 MG ORAL TABS TWO BY MOUTH THREE TIMES DAILY HYDRALAZINE HCL 27048332425 No Longer Active Andrellina Anne GONZALEZN Active HYDROCODONE-ACETAMINOPHEN 5-325 MG TABS 1 tab by mouth BID prn back pain 2013 HYDROCODONE-ACETAMINOPHEN 41595739039 No Longer Active Jillina Frazell [employer] Active HYDROCHLOROTHIAZIDE TABS Take one by mouth daily HYDROCHLOROTHIAZIDE TABS 10430540055 No Longer Active Jillina Frazell [employer] Active LAMISIL 125 MG ORAL PACK 1 TAB PO DAILY TERBINAFINE HCL 27616928161 No Longer Active Jillina Frazell [employer] Active TRILEPTAL 150 MG ORAL TABS 1 TAB PO Q HS OXCARBAZEPINE 47615284556 No Longer Active Jillina Frazell [employer] Active BETADINE 10 % EXT SOLN 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 POVIDONE-IODINE 93462060443 No Longer Active Jillina Frazell [employer] Active NYSTATIN 146235 UNIT/ML M/T SUSP 5mL po QID x 10 days NYSTATIN 63068411227 No Longer Active Erin Garsia APRN Active PREDNISONE 20 MG TAB 1 tablet twice daily for 2 days, then 1 tablet once daily for 2 days PREDNISONE 84440865404 No Longer Active Robbie Busby MD Active CEFDINIR 300 MG ORAL CAPS Take 1 cap po bid x 10 days CEFDINIR 20587790253 No Longer Active Robbie Busby MD Active AMLODIPINE BESYLATE 10 MG TABS 1 tablet by mouth daily AMLODIPINE BESYLATE 14121147675 Active Robbie Busby MD Active CARVEDILOL 25 MG TABS 1 & 1/2 TAB po BID CARVEDILOL 71712603005 Active Robbie Busby MD Active NEXIUM 40 MG CPDR 1 cap by mouth daily ESOMEPRAZOLE MAGNESIUM 34974233297 Active Robbie Busby MD Active PROTONIX 40 MG SOLR 1 po qday for acid reflux PANTOPRAZOLE SODIUM 47358959824 No Longer Active Gali Raida Active KEFLEX 500 MG CAP 1 po TID x 10 days CEPHALEXIN 65948338192 No Longer Active Robbie Busby MD Active TOPIRAMATE 50 MG ORAL TABS take 1 tab po BID for migraines. TOPIRAMATE 65732808621 Active Robbie Busby MD Active TEMAZEPAM 15 MG ORAL CAPS 1 TAB PO Q HS TEMAZEPAM 97920281254 Active Robbie Busby MD Active ALPRAZOLAM 2 MG ORAL TABS 1 TAB PO BID ALPRAZOLAM 26638385385 Active Robbie Busby MD Active FENOFIBRATE 145 MG TABS Take one by mouth daily FENOFIBRATE 79029517721 No Longer Active Robbie Busby MD Active SPIRONOLACTONE 50 MG TABS 1 tablet by mouth twice a day SPIRONOLACTONE 91969434422 No Longer Active Robbie Busby MD Active HYDRALAZINE HCL 25 MG TABS 1 tablet by mouth tid for hypertension HYDRALAZINE HCL 11872483463 No Longer Active Robbie Busby MD Active VIIBRYD 40 MG TABS take 1 tab po qday for depression. VILAZODONE HCL 10516414754 No Longer Active Robbie Busby MD Active TERBINAFINE HCL 250 MG TABS 1 tab po qday for foot infection 2014 TERBINAFINE HCL 55489408399 No Longer Active Robbie Busby MD Active GABAPENTIN 300 MG CAPS 1 po q hs for nerve pain GABAPENTIN 46760505970 Active Robbie Busby MD Active CHERATUSSIN AC 100-10 MG/5ML ORAL SOLN 7.5 mL PO q 4-6 hrs PRN cough GUAIFENESIN-CODEINE 43149733504 No Longer Active Robbie Busby MD Active AZITHROMYCIN 250 MG ORAL TABS 2 tablets PO today---then, 1 tablet PO daily x 4 more days (and 1 optional refill) AZITHROMYCIN 27029065577 No Longer Active Robbie Busby MD Active NORVASC 10 MG TAB 1 tablet by mouth daily AMLODIPINE BESYLATE 29542575323 No Longer Active Alex ALVAREZ Active IMDUR 60 MG TAB CR take 1 tab po qday for blood pressure ISOSORBIDE MONONITRATE Active Robbie Busby MD Active ISOSORBIDE DINITRATE 30 MG TABS Take one by mouth daily ISOSORBIDE DINITRATE 68222963889 No Longer Active Robbie Busby MD Active VIIBRYD 40 MG TABS 1 TA B PO DAILY VILAZODONE HCL 82362285645 Active Robbie Busby MD Active ZITHROMAX 250 MG TAB 2 po today, then 1 po q days 2-5 AZITHROMYCIN 67161553369 No Longer Active Robbie Busby MD Active [id number] 0.3 MG/24HR PTWK apply 2 patches q week for HTN CLONIDINE HCL 11361907291 Active Robbie Busby MD Active DOXAZOSIN MESYLATE 4 MG TABS Take one by mouth daily DOXAZOSIN MESYLATE 73865604548 Active Robbie Busby MD Active TOPROL XL 200 MG [id number] Take one by mouth daily METOPROLOL SUCCINATE 65975640892 Active Robbie Busby MD Active VENLAFAXINE HCL ER 150 MG [id number] Take one by mouth daily VENLAFAXINE HCL 33263470136 Active Robbie Busby MD Active LIPITOR 40 MG TABS Take one by mouth daily ATORVASTATIN CALCIUM 82261929003 Active Robbie Busby MD Active HYDROCHLOROTHIAZIDE TABS Take one by mouth daily HYDROCHLOROTHIAZIDE TABS HYDROCHLOROTHIAZIDE TABS Inactive BACTRIM DS 800-160 MG TAB 1 tab by mouth twice daily BACTRIM DS 800-160 MG TAB 386147 TRIMETHOPRIM-SULFAMETHOXAZOLE Inactive BETADINE 10 % EXT SOLN 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 BETADINE 10 % EXT SOLN 7634086 POVIDONE-IODINE Inactive CLONIDINE HCL 0.2 MG ORAL TABS 1 TAB BY MOUTH EVERY 8 HOURS 12/29 CLONIDINE HCL 0.2 MG ORAL TABS 347375 CLONIDINE HCL Inactive CYCLOBENZAPRINE HCL 10 MG TABS 1 tablet by mouth three times daily as needed for muscle spasm/pain for 10 days CYCLOBENZAPRINE HCL 10 MG TABS 994300 CYCLOBENZAPRINE HCL Inactive HYDRALAZINE HCL 25 MG TABS 1 tablet by mouth tid for hypertension HYDRALAZINE HCL 25 MG TABS 086164 HYDRALAZINE HCL Inactive HYDRALAZINE HCL 50 MG ORAL TABS TWO BY MOUTH THREE TIMES DAILY HYDRALAZINE HCL 50 MG ORAL TABS 478228 HYDRALAZINE HCL Inactive ISOSORBIDE DINITRATE 30 MG TABS Take one by mouth daily ISOSORBIDE DINITRATE 30 MG TABS 848120 ISOSORBIDE DINITRATE Inactive KEFLEX 500 MG CAP 1 po TID x 10 days KEFLEX 500 MG CAP 369980 CEPHALEXIN Inactive NITROSTAT 0.4 MG SUBL PRN NITROSTAT 0.4 MG SUBL 931593 NITROGLYCERIN Inactive NORVASC 10 MG TAB 1 tablet by mouth daily NORVASC 10 MG TAB 281762 AMLODIPINE BESYLATE Inactive NYSTATIN 893251 UNIT/ML M/T SUSP 5mL po QID x 10 days NYSTATIN 039891 UNIT/ML M/T SUSP 834592 NYSTATIN Inactive PREDNISONE 20 MG TAB 1 tablet twice daily for 2 days, then 1 tablet once daily for 2 days PREDNISONE 20 MG TAB 544655 PREDNISONE Inactive PREDNISONE 20 MG TAB take 3 tabs daily for 3 days, 2 tabs daily for 3 days, 1 tab daily for 3 days, 1/2 tab daily for 4 days PREDNISONE 20 MG TAB 408944 PREDNISONE Inactive SPIRONOLACTONE 25 MG TAB 4 tablets by mouth daily SPIRONOLACTONE 25 MG TAB 129460 SPIRONOLACTONE Inactive LORATADINE 10 MG TABS 1 tablet by mouth daily for congestion and allergies. LORATADINE 10 MG TABS 469136 LORATADINE Inactive SPIRONOLACTONE 50 MG TABS 1 tablet by mouth twice a day SPIRONOLACTONE 50 MG TABS 269345 SPIRONOLACTONE Inactive MECLIZINE HCL 25 MG TAB one 4 times a day as needed for dizziness MECLIZINE HCL 25 MG TAB 079683 MECLIZINE HCL Inactive TERBINAFINE HCL 250 MG TABS 1 tab po qday for foot infection 2014 TERBINAFINE HCL 250 MG TABS 198128 TERBINAFINE HCL Inactive LEVAQUIN 500 MG TAB 1 tablet by mouth daily for 7 days LEVAQUIN 500 MG TAB 309256 LEVOFLOXACIN Inactive ZITHROMAX 250 MG TAB 2 po today, then 1 po q days 2-5 ZITHROMAX 250 MG TAB 2918318 AZITHROMYCIN Inactive AZITHROMYCIN 250 MG ORAL TABS 2 tablets PO today---then, 1 tablet PO daily x 4 more days (and 1 optional refill) AZITHROMYCIN 250 MG ORAL TABS 7122415 AZITHROMYCIN Inactive CEFDINIR 300 MG ORAL CAPS Take 1 cap po bid x 10 days CEFDINIR 300 MG ORAL CAPS 228551 CEFDINIR Inactive TRILEPTAL 150 MG ORAL TABS 1 TAB PO Q HS TRILEPTAL 150 MG ORAL TABS 103446 OXCARBAZEPINE Inactive PROTONIX 40 MG SOLR 1 po qday for acid reflux PROTONIX 40 MG SOLR 690245 PANTOPRAZOLE SODIUM Inactive FLONASE 50 MCG/ACT SUSP 1 spray each nostril twice daily for allergies and runny nose FLONASE 50 MCG/ACT SUSP 6390785 FLUTICASONE PROPIONATE Inactive HYDROCODONE-ACETAMINOPHEN 5-325 MG TABS 1 tab by mouth BID prn back pain 2013 HYDROCODONE-ACETAMINOPHEN 5-325 MG TABS 824902 HYDROCODONE -ACETAMINOPHEN Inactive FENOFIBRATE 145 MG TABS Take one by mouth daily FENOFIBRATE 145 MG TABS 189849 FENOFIBRATE Inactive LAMISIL 125 MG ORAL PACK 1 TAB PO DAILY LAMISIL 125 MG ORAL PACK TERBINAFINE HCL Inactive VIIBRYD 40 MG TABS take 1 tab po qday for depression. VIIBRYD 40 MG TABS VILAZODONE HCL Inactive VITAMIN D3 73876 UNIT CAPS 2 CAPS PO WEEKLY VITAMIN D3 66605 UNIT CAPS CHOLECALCIFEROL Inactive CHERATUSSIN AC 100-10 MG/5ML ORAL SOLN 7.5 mL PO q 4-6 hrs PRN cough CHERATUSSIN AC 100-10 MG/5ML ORAL SOLN 864716 GUAIFENESIN- CODEINE Inactive FIORICET 50-300-40 MG ORAL CAPS take 1 tab po qday prn migraines. FIORICET 50-300-40 MG ORAL CAPS 159029 [id number] Inactive Advance Directives Directive Description Start Date [...] AUTO - Chemistry sodium, serum 142 mmol/L 745-656 6993/07/17 carbon dioxide, venous blood 28.2 mmol/L 21.0-32.0 [...] % 11.0-15.0 platelet count 185 THOUSAND/UL 10*3/mm3 195-351 4556/04/14 mean platelet volume 10.9 fL 7.5-12.5 Lab Report: LIPID PANEL, TSH/899, T4, FREE/866 - Chemistry cholesterol, serum 220 mg/dL 316-429 3288/04/14 HDL cholesterol, serum 30 mg/dL > OR=40 triglyceride, serum, fasting 466 mg/dL <150 LDL cholesterol, serum SEE NOTE mg/dL (calc) mg/dL <130 cholesterol/HDL ratio, serum 7.3 (calc) < OR=5.0 Lab Report: Prostatic Specific Ag - Chemistry prostate specific antigen 1.80 ng/mL 0.00-4.00 Lab Report: VITAMIN D, 25-HYDROXY/61853 - Chemistry vitamin D 25-hydroxy, serum 25 ng/mL 30-100 Office Visit: Confusion, dizziness after fall - Basic LDL target level 130 mg/dL Office Visit: Confusion, dizziness after fall - Chemistry HDL cholesterol, serum, target level 40 mg/dL triglyceride, target level 150 mg/dL cholesterol, target level 200 mg/dL Encounters Code Encounter Date Provider Facility CPT-38687 Level 4 Est. Patient 15:18:19 CDT Robbie Busby MD [facility] CPT-35196 Level 3 Est. Patient 09:00:37 CDT Rober Rodríguez APRN [facility] CPT-65863 Level 3 Est. Patient 16:07:10 CDT Robbie Busby MD [facility] CPT-40088 Level 4 Est. Patient 11:56:16 CDT Erin Garsia [facility] CPT-32369 Level 3 Est. Patient 17:48:02 CDT Robbie Busby MD [facility] CPT-75126 Level 4 Est. Patient 12:00:49 [employer] Rober Rodríguez [facility] CPT-26939 Level 3 Est. Patient 09:16:37 CDT Robbie Busby MD [facility] CPT-69065 Level 3 Est. Patient 19:38:43 CDT Robbie Busby MD [facility]-38106 Level 3 Est. Patient 11:53:38 CDT Robbie Busby MD [facility] CPT-36396 Level 4 Est. Patient 12:52:22 CDT Rober Rodríguez [facility] CPT-90985 Level 4 Est. Patient 22:55:17 CDT Robbie Busby MD [facility]-23377 Level 3 Est. Patient 12:38:24 CDT Desmond Diaz DO [facility] CPT-54180 Level 4 Est. Patient 11:25:03 [employer]IRRING T[employer]ER Robbie Busby MD [facility] CPT-46657 Level 4 Est. Patient 14:50:10 CDT Robbie Busby MD [facility] CPT-73185 Level 4 Est. Patient 23:30:43 CDT Robbie Busby MD [facility] CPT-92610 Level 4 Est. Patient 10:30:43 CDT Robbie Busby MD [facility] CPT-23963 Level 3 Est. Patient 17:08:12 CDT Alex ALVAREZ [facility] CPT-50428 Level 4 Est. Patient 17:51:38 CDT Robbie Busby MD [facility] CPT-38422 Level 4 Est. Patient 14:00:21 CDT Robbie Busby MD [facility] CPT-42540 Level 4 Est. Patient 12:46:48 CDT Robbie Busby MD [facility] CPT-37837 Level 4 Est. Patient 13:34:33 CDT Robbie Busby MD [facility] CPT-17428 Level 4 Est. Patient 16:58:28 CDT Robbie Busby MD [facility] CPT-50959 Level 3 Est. Patient 19:36:53 CDT Alex ALVAREZ [facility] CPT-79490 Level 3 Est. Patient 12:58:15 CDT Robbie Busby MD [facility] Procedures Code Procedure Name Date Entry Date Standard Description CPT-J1071 Depo Testosterone 200mg 09:03:53 CDT CPT-31337 Abx/Therapy Injection 09:03:53 CDT CPT-G0439 [facility] Annual Wellness Exam 16:47:44 CDT CPT-J1071 Depo Testosterone 200mg 09:06:28 CDT CPT-26564 Abx/Therapy Injection 09:06:28 CDT CPT-J1071 Depo Testosterone 200mg 08:30:01 CDT CPT-05271 Abx/Therapy Injection 08:30:01 CDT CPT-J1071 Depo Testosterone 200mg 08:24:00 CDT CPT-14562 Abx/Therapy Injection 08:24:00 CDT CPT-90234 Venipuncture Draw Fee 14:39:06 CDT CPT-71538 Ribs unilateral 2V - XRAY USE ONLY 12:10:11 CDT CPT-46116 First Vx - Ix admin for Medicare patients 16:32:53 CDT CPT-15813 Boostrix Intramuscular Suspension 5-2.5-18.5 16:32:53 CDT CPT-57904 TB Skin Test 11:42:28 CDT CPT-07092 Tdap 7yrs or > 11:42:28 CDT CPT-J0696 Rocephin 1000 mg (Ceftriaxone) 17:43:43 [employer]RING [employer]END[employer] CPT-J1040 Depo Medrol 80 mg (Methyl Prednisolone Acetate) 17:43: 43 [employer]RING [employer] CPT-J1100 Decadron 8mg (Dexamethasone) 17:43:42 [employer]IRRING TENDER CPT-62033 Abx/Therapy Injection 17:43:42 SHIRRING TENDER CPT-99006 Abx/Therapy Injection 17:43:42 SHIRRING TENDER CPT-J1040 Depo Medrol 80 mg (Methyl Prednisolone Acetate) 09:43: 34 [employer]IRRING TENDER CPT-J1100 Decadron 8mg (Dexamethasone) 09:43:34 [employer]IRRING TENDER CPT-J0696 Rocephin 1gm Inj Solr 09:43:34 [employer]RING T[employer]ER CPT-88823 Wound Culture - LAB USE ONLY 14:00:21 CDT CPT-I/D I/D Abscess 09:16:37 CDT CPT-35161 Venipuncture Draw Fee 15:20:23 CDT CPT-23921 Microalbumin - LAB USE ONLY 16:02:19 CDT CPT-22251 CBC - LAB USE ONLY 16:02:19 CDT CPT-02265 Venipuncture Draw Fee 16:02:19 CDT CPT-G0438 Initial Annual Wellness Exam 08:10:28 CDT CPT-04436 Venipuncture Draw Fee 13:07:17 CDT CPT-G0008 Administration of Influenza Virus Vaccine 16:09:59 CDT CPT-70841 Fluzone Quadrivalent Intramuscular Suspension 0.5 ML 16: 09:59 CDT CPT-88995 Spec Collection and Handling Fee 15:05:50 CDT
--- OUTSIDE RECORDS SUMMARY | 2018-04-18 11:31 | XMS REPORT | Clinical Summary ---
Author Author Admin, [facility] Organization [facility] Address Unknown Phone Unavailable Allergies, Adverse [...] machines, 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 Fatigue 780.79 Active Gali Nergo Other malaise and fatigue Medication List Medication Instructions Start Date Stop Date Generic Name NDC Status Provider Patient Instruction NYSTATIN 519287 UNIT/ML M/T SUSP 5mL po QID x 10 days NYSTATIN 66511476541 No Longer Active Erin Garsia APRN Active PREDNISONE 20 MG TAB 1 tablet twice daily for 2 days, then 1 tablet once daily for 2 days PREDNISONE 86142182660 No Longer Active Robbie Busby MD Active CEFDINIR 300 MG ORAL CAPS Take 1 cap po bid x 10 days CEFDINIR 17682902642 No Longer Active Robbie Busby MD Active AMLODIPINE BESYLATE 10 MG TABS 1 tablet by mouth daily AMLODIPINE BESYLATE 32101103333 Active Robbie Busby MD Active CARVEDILOL 25 MG TABS 1 & 1/2 TAB po BID CARVEDILOL 71130739078 Active Robbie Busby MD Active VITAMIN D3 19445 UNIT CAPS 2 CAPS PO WEEKLY CHOLECALCIFEROL 86903871978 Active 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 [id number] 67733801535 Active Robbie Busby MD Active TOPIRAMATE 50 MG ORAL TABS take 1 tab po BID for migraines. TOPIRAMATE 23290111723 Active Robbie Busby MD Active HYDRALAZINE HCL 50 MG ORAL TABS TWO BY MOUTH THREE TIMES DAILY HYDRALAZINE HCL 29326141179 Active Robbie Busby MD Active MECLIZINE HCL 25 MG TAB one 4 times a day as needed for dizziness MECLIZINE HCL 39955447457 Active Robbie Busby MD Active TRILEPTAL 150 MG ORAL TABS 1 TAB PO Q HS OXCARBAZEPINE 75679983078 Active Robbie Busby MD Active TEMAZEPAM 15 MG ORAL CAPS 1 TAB PO Q HS TEMAZEPAM 71172316865 Active Robbie Busby MD Active ALPRAZOLAM 2 MG ORAL TABS 1 TAB PO BID ALPRAZOLAM 85441604828 Active Robbie Busby MD Active FENOFIBRATE 145 MG TABS Take one by mouth daily FENOFIBRATE 85126262266 No Longer Active Robbie Busby MD Active LAMISIL 125 MG ORAL PACK 1 TAB PO DAILY TERBINAFINE HCL 67640502427 Active Robbie Busby MD Active SPIRONOLACTONE 50 MG TABS 1 tablet by mouth twice a day SPIRONOLACTONE 66484992243 No Longer Active Robbie Busby MD Active HYDRALAZINE HCL 25 MG TABS 1 tablet by mouth tid for hypertension HYDRALAZINE HCL 57201630792 No Longer Active Robbie Busby MD Active VIIBRYD 40 MG TABS take 1 tab po qday for depression. VILAZODONE HCL 10005696967 No Longer Active Robbie Busby MD Active TERBINAFINE HCL 250 MG TABS 1 tab po qday for foot infection 2014 TERBINAFINE HCL 09150218106 No Longer Active Robbie Busby MD Active GABAPENTIN 300 MG CAPS 1 po q hs for nerve pain GABAPENTIN 37966834241 Active Robbie Busby MD Active FLONASE 50 MCG/ACT SUSP 1 spray each nostril twice daily for allergies and runny nose FLUTICASONE PROPIONATE 79120583872 Active Robbie Busby MD Active CHERATUSSIN AC 100-10 MG/5ML ORAL SOLN 7.5 mL PO q 4-6 hrs PRN cough GUAIFENESIN-CODEINE 95178167998 No Longer Active Robbie Busby MD Active AZITHROMYCIN 250 MG ORAL TABS 2 tablets PO today---then, 1 tablet PO daily x 4 more days (and 1 optional refill) AZITHROMYCIN 25002545757 No Longer Active Robbie Busby MD Active CLONIDINE HCL 0.2 MG ORAL TABS 1 TAB BY MOUTH EVERY 8 HOURS CLONIDINE HCL 67243723726 Active Robbie Busby MD Active HYDROCHLOROTHIAZIDE TABS Take one by mouth daily HYDROCHLOROTHIAZIDE TABS 67101456756 Active Alex ALVAREZ Active NORVASC 10 MG TAB 1 tablet by mouth daily AMLODIPINE BESYLATE 80779705051 No Longer Active Alex ALVAREZ Active IMDUR 60 MG TAB CR take 1 tab po qday for blood pressure ISOSORBIDE MONONITRATE Active Robbie Busby MD Active ISOSORBIDE DINITRATE 30 MG TABS Take one by mouth daily ISOSORBIDE DINITRATE 04700339175 No Longer Active Robbie Busby MD Active VIIBRYD 40 MG TABS 1 TA B PO DAILY VILAZODONE HCL 59867184721 Active Robbie Busby MD Active LORATADINE 10 MG TABS 1 tablet by mouth daily for congestion and allergies. LORATADINE 27812303133 Active Robbie Busby MD Active ZITHROMAX 250 MG TAB 2 po today, then 1 po q days 2-5 AZITHROMYCIN 02812005107 No Longer Active Robbie Busby MD Active HYDROCODONE-ACETAMINOPHEN 5-325 MG TABS 1 tab by mouth BID prn back pain 2013 HYDROCODONE-ACETAMINOPHEN 19269020917 Active Robbie Busby MD Active [id number]-9 0.3 MG/24HR PTWK apply 2 patches q week for HTN CLONIDINE HCL 99266970655 Active Robbie Busby MD Active NITROSTAT 0.4 MG SUBL PRN NITROGLYCERIN 82077469186 Active Robbie Busby MD Active DOXAZOSIN MESYLATE 4 MG TABS Take one by mouth daily DOXAZOSIN MESYLATE 22019291707 Active Robbie Busby MD Active TOPROL XL 200 MG [id number] Take one by mouth daily METOPROLOL SUCCINATE 45330834395 Active Robbie Busby MD Active VENLAFAXINE HCL ER 150 MG [id number] Take one by mouth daily VENLAFAXINE HCL 01130499860 Active Robbie Busby MD Active LIPITOR 40 MG TABS Take one by mouth daily ATORVASTATIN CALCIUM 66520989007 Active Robbie Busby MD Active ISOSORBIDE DINITRATE 30 MG TABS Take one by mouth daily ISOSORBIDE DINITRATE 30 MG TABS 761990 ISOSORBIDE DINITRATE Inactive NORVASC 10 MG TAB 1 tablet by mouth daily NORVASC 10 MG TAB 092778 AMLODIPINE BESYLATE Inactive AZITHROMYCIN 250 MG ORAL TABS 2 tablets PO today---then, 1 tablet PO daily x 4 more days (and 1 optional refill) AZITHROMYCIN 250 MG ORAL TABS 1200006 AZITHROMYCIN Inactive CHERATUSSIN AC 100-10 MG/5ML ORAL SOLN 7.5 mL PO q 4-6 hrs PRN cough CHERATUSSIN AC 100-10 MG/5ML ORAL SOLN 268459 GUAIFENESIN- CODEINE Inactive VIIBRYD 40 MG TABS take 1 tab po qday for depression. VIIBRYD 40 MG TABS VILAZODONE HCL Inactive HYDRALAZINE HCL 25 MG TABS 1 tablet by mouth tid for hypertension HYDRALAZINE HCL 25 MG TABS 890398 HYDRALAZINE HCL Inactive SPIRONOLACTONE 50 MG TABS 1 tablet by mouth twice a day SPIRONOLACTONE 50 MG TABS 158003 SPIRONOLACTONE Inactive FENOFIBRATE 145 MG TABS Take one by mouth daily FENOFIBRATE 145 MG TABS 992226 FENOFIBRATE Inactive PROTONIX 40 MG SOLR 1 po qday for acid reflux PROTONIX 40 MG SOLR 630355 PANTOPRAZOLE SODIUM Inactive CEFDINIR 300 MG ORAL CAPS Take 1 cap po bid x 10 days CEFDINIR 300 MG ORAL CAPS 577916 CEFDINIR Inactive PREDNISONE 20 MG TAB 1 tablet twice daily for 2 days, then 1 tablet once daily for 2 days PREDNISONE 20 MG TAB 183483 PREDNISONE Inactive NYSTATIN 381009 UNIT/ML M/T SUSP 5mL po QID x 10 days NYSTATIN 433448 UNIT/ML M/T SUSP 981658 NYSTATIN Inactive ZITHROMAX 250 MG TAB 2 po today, then 1 po q days 2-5 ZITHROMAX 250 MG TAB 7743127 AZITHROMYCIN Inactive TERBINAFINE HCL 250 MG TABS 1 tab po qday for foot infection 2014 TERBINAFINE HCL 250 MG TABS 341524 TERBINAFINE HCL Inactive KEFLEX 500 MG CAP 1 po TID x 10 days KEFLEX 500 MG CAP 359936 CEPHALEXIN Inactive Advance Directives Directive Description Start [...] Acid - Chemistry sodium, serum 139 mmol/L 137-129 9109/04/22 carbon dioxide, venous blood 29.4 mmol/L 21.0-32.0 [...] to Follow Negative Lab Report: VITAMIN D, 25-HYDROXY/25473 - Chemistry vitamin D 25-hydroxy, serum 23 ng/mL 30-100 Encounters Code Encounter Date Provider Facility CPT-86939 Level 4 Est. Patient 22:55:17 CDT Robbie Busby MD [facility] CPT-09652 Level 3 Est. Patient 12:38:24 CDT Desmond Diaz DO [facility] CPT-24601 Level 4 Est. 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 Patient 14:50:10 CDT Robbie Busby MD [facility] CPT-97637 Level 4 Est. Patient 23:30:43 CDT Robbie Busby MD [facility] CPT-39955 Level 4 Est. Patient 10:30:43 CDT Robbie Busby MD [facility] CPT-52583 Level 3 Est. Patient 17:08:12 CDT Alex ALVAREZ [facility] CPT-41896 Level 4 Est. Patient 17:51:38 CDT Robbie Busby MD [facility] CPT-51017 Level 4 Est. Patient 14:00:21 CDT Robbie Busby MD [facility] CPT-73208 Level 4 Est. Patient 12:46:48 CDT Robbie Busby MD [facility] CPT-03045 Level 4 Est. Patient 13:34:33 CDT Robbie Busby MD [facility] CPT-50087 Level 4 Est. Patient 16:58:28 CDT Robbie Busby MD [facility] CPT-09129 Level 3 Est. Patient 19:36:53 CDT Alex Shaw [facility] CPT-12207 Level 3 Est. Patient 12:58:15 CDT Robbie Busby MD [facility] Procedures Code Procedure Name Date Entry Date Standard Description CPT-60738 Venipuncture Draw Fee 15:20:23 CDT CPT-59738 Microalbumin - LAB USE ONLY 16:02:19 CDT CPT-47026 CBC - LAB USE ONLY 16:02:19 CDT CPT-61680 Venipuncture Draw Fee 16:02:19 CDT CPT-G0438 Initial Annual Wellness Exam 08:10:28 CDT CPT-05196 Venipuncture Draw Fee 13:07:17 CDT CPT-G0008 Administration of Influenza Virus Vaccine 16:09:59 CDT CPT-60716 Fluzone Quadrivalent Intramuscular Suspension 0.5 ML 16: 09:59 CDT CPT-76644 Spec Collection and Handling Fee 15:05:50 CDT
--- OUTSIDE RECORDS SUMMARY | 2018-04-18 11:32 | XMS REPORT | Clinical Summary ---
Author Author Admin, [facility] Organization [facility] Address Unknown Phone Unavailable Allergies, Adverse [...] sites, infected Abscess, skin 682.9 Active Robbie Bsuby MD Cellulitis and abscess of unspecified sites [...] 2 weeks for low testosterone TESTOSTERONE CYPIONATE 03809029057 Active Zulema Blank LPN Active CYCLOBENZAPRINE HCL 10 MG ORAL TABS 1 po TID PRN muscle spasm/pain for 10 days CYCLOBENZAPRINE HCL 78355043235 Active JONATHAN Moncada Active GUAIFENESIN 600 MG PD28J-HHR 1 tab po q am GUAIFENESIN 91613552342 Active Rober Rodríguez SENIOR VISUAL DESIGNER Active FLUTICASONE PROPIONATE 50 MCG/ACT SUSP 2 sprays per nostril bid for 1 week, then 1 spray bid FLUTICASONE PROPIONATE 29332805412 Active Jishantel Rodríguez APRN Active HYDRALAZINE HCL 25 MG ORAL TABS Take 1 tab BID. HYDRALAZINE HCL 97599038462 Active Rober Rodríguez APRN Active VITAMIN D3 48475 UNIT ORAL TABS 2 po weekly CHOLECALCIFEROL 98121597654 Active JONATHAN Moncada Active OXYCODONE HCL ER 10 MG ORAL T12A 1 tab po 3 times qd. OXYCODONE HCL 54197619952 Active Robbie Busby MD Active NITROSTAT 0.4 MG SUBL PRN NITROGLYCERIN 60482499876 No Longer Active Robbie Busby MD Active LORATADINE 10 MG TABS 1 tablet by mouth daily for congestion and allergies. LORATADINE 89424826445 No Longer Active Robbie Busby MD Active FLONASE 50 MCG/ACT SUSP 1 spray each nostril twice daily for allergies and runny nose FLUTICASONE PROPIONATE 52001358808 No Longer Active Robbie Busby MD Active FIORICET 50-300-40 MG ORAL CAPS take 1 tab po qday prn migraines. [id number] 01450025936 No Longer Active Robbie Busby MD Active VITAMIN D3 27285 UNIT CAPS 2 CAPS PO WEEKLY CHOLECALCIFEROL 41170623951 No Longer Active Robbie Busby MD Active CYCLOBENZAPRINE HCL 10 MG TABS 1 tablet by mouth three times daily as needed for muscle spasm/pain for 10 days CYCLOBENZAPRINE HCL 10847452856 No Longer Active Robbie Busby MD Active PREDNISONE 20 MG TAB take 3 tabs daily for 3 days, 2 tabs daily for 3 days, 1 tab daily for 3 days, 1/2 tab daily for 4 days PREDNISONE 78543986646 No Longer Active Erin Garsia APRN Active CLONIDINE HCL 0.2 MG ORAL TABS 1 TAB BY MOUTH EVERY 8 HOURS 12/29 CLONIDINE HCL 24459975110 No Longer Active Erin Garsia APRN Active MECLIZINE HCL 25 MG TAB one 4 times a day as needed for dizziness MECLIZINE HCL 34693785226 No Longer Active Erin Garsia APRN Active SPIRONOLACTONE 25 MG TAB 4 tablets by mouth daily SPIRONOLACTONE 19926356198 No Longer Active Erin Garsia APRN Active LEVAQUIN 500 MG TAB 1 tablet by mouth daily for 7 days LEVOFLOXACIN 32655780571 No Longer Active Erin Garsia APRN Active BACTRIM DS 800-160 MG TAB 1 tab by mouth twice daily TRIMETHOPRIM-SULFAMETHOXAZOLE 82737601643 No Longer Active Robbie Busby MD Active HYDRALAZINE HCL 50 MG ORAL TABS TWO BY MOUTH THREE TIMES DAILY HYDRALAZINE HCL 49813782877 No Longer Active Jillina Frakierstenl SENIOR VISUAL DESIGNER Active HYDROCODONE-ACETAMINOPHEN 5-325 MG TABS 1 tab by mouth BID prn back pain 2013 HYDROCODONE-ACETAMINOPHEN 27994976535 No Longer Active Jillina Frazell SENIOR VISUAL DESIGNER Active HYDROCHLOROTHIAZIDE TABS Take one by mouth daily HYDROCHLOROTHIAZIDE TABS 13633346838 No Longer Active Jillina Frazell SENIOR VISUAL DESIGNER Active LAMISIL 125 MG ORAL PACK 1 TAB PO DAILY TERBINAFINE HCL 12430094579 No Longer Active Jillina Frazell SENIOR VISUAL DESIGNER Active TRILEPTAL 150 MG ORAL TABS 1 TAB PO Q HS OXCARBAZEPINE 15367697562 No Longer Active Jillina Frazell SENIOR VISUAL DESIGNER Active BETADINE 10 % EXT SOLN 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 POVIDONE-IODINE 39199070216 No Longer Active Jillina Frazell SENIOR VISUAL DESIGNER Active NYSTATIN 657972 UNIT/ML M/T SUSP 5mL po QID x 10 days NYSTATIN 75476065940 No Longer Active Erin Garsia APRN Active PREDNISONE 20 MG TAB 1 tablet twice daily for 2 days, then 1 tablet once daily for 2 days PREDNISONE 29229996400 No Longer Active Robbie Busby MD Active CEFDINIR 300 MG ORAL CAPS Take 1 cap po bid x 10 days CEFDINIR 89276099699 No Longer Active Robbie Busby MD Active AMLODIPINE BESYLATE 10 MG TABS 1 tablet by mouth daily AMLODIPINE BESYLATE 52491672703 Active Robbie Busby MD Active CARVEDILOL 25 MG TABS 1 & 1/2 TAB po BID CARVEDILOL 37998595218 Active Robbie Busby MD Active NEXIUM 40 MG CPDR 1 cap by mouth daily ESOMEPRAZOLE MAGNESIUM 35347927015 Active Robbie Busby MD Active PROTONIX 40 MG SOLR 1 po qday for acid reflux PANTOPRAZOLE SODIUM 11415609824 No Longer Active Gali Raida Active KEFLEX 500 MG CAP 1 po TID x 10 days CEPHALEXIN 45709742073 No Longer Active Robbie Busby MD Active TOPIRAMATE 50 MG ORAL TABS take 1 tab po BID for migraines. TOPIRAMATE 20387745383 Active Robbie Busby MD Active TEMAZEPAM 15 MG ORAL CAPS 1 TAB PO Q HS TEMAZEPAM 26761755293 Active Robbie Busby MD Active ALPRAZOLAM 2 MG ORAL TABS 1 TAB PO BID ALPRAZOLAM 98891815657 Active Robbie Busby MD Active FENOFIBRATE 145 MG TABS Take one by mouth daily FENOFIBRATE 93424968404 No Longer Active Robbie Busby MD Active SPIRONOLACTONE 50 MG TABS 1 tablet by mouth twice a day SPIRONOLACTONE 15693399707 No Longer Active Robbie Busby MD Active HYDRALAZINE HCL 25 MG TABS 1 tablet by mouth tid for hypertension HYDRALAZINE HCL 81119873001 No Longer Active Robbie Busby MD Active VIIBRYD 40 MG TABS take 1 tab po qday for depression. VILAZODONE HCL 00637509313 No Longer Active Robbie Busby MD Active TERBINAFINE HCL 250 MG TABS 1 tab po qday for foot infection 2014 TERBINAFINE HCL 35241406901 No Longer Active Robbie Busby MD Active GABAPENTIN 300 MG CAPS 1 po q hs for nerve pain GABAPENTIN 73946148688 Active Robbie Busby MD Active CHERATUSSIN AC 100-10 MG/5ML ORAL SOLN 7.5 mL PO q 4-6 hrs PRN cough GUAIFENESIN-CODEINE 96190533554 No Longer Active Rbobie Busby MD Active AZITHROMYCIN 250 MG ORAL TABS 2 tablets PO today---then, 1 tablet PO daily x 4 more days (and 1 optional refill) AZITHROMYCIN 19717614899 No Longer Active Robbie Busby MD Active NORVASC 10 MG TAB 1 tablet by mouth daily AMLODIPINE BESYLATE 64659455158 No Longer Active Alex ALVAREZ Active IMDUR 60 MG TAB CR take 1 tab po qday for blood pressure ISOSORBIDE MONONITRATE Active Robbie Busby MD Active ISOSORBIDE DINITRATE 30 MG TABS Take one by mouth daily ISOSORBIDE DINITRATE 46914156681 No Longer Active Robbie Busby MD Active VIIBRYD 40 MG TABS 1 TA B PO DAILY VILAZODONE HCL 43460499025 Active Robbie Busby MD Active ZITHROMAX 250 MG TAB 2 po today, then 1 po q days 2-5 AZITHROMYCIN 58534121121 No Longer Active Robbie Busby MD Active [id number] 0.3 MG/24HR PTWK apply 2 patches q week for HTN CLONIDINE HCL 90579774284 Active Robbie Busby MD Active DOXAZOSIN MESYLATE 4 MG TABS Take one by mouth daily DOXAZOSIN MESYLATE 03341183403 Active Robbie Busby MD Active TOPROL XL 200 MG [id number] Take one by mouth daily METOPROLOL SUCCINATE 93311052226 Active Robbie Busby MD Active VENLAFAXINE HCL ER 150 MG [id number]-CMU Take one by mouth daily VENLAFAXINE HCL 78584340319 Active Robbie Busby MD Active LIPITOR 40 MG TABS Take one by mouth daily ATORVASTATIN CALCIUM 10682300607 Active Robbie Busby MD Active ISOSORBIDE DINITRATE 30 MG TABS Take one by mouth daily ISOSORBIDE DINITRATE 30 MG TABS 992969 ISOSORBIDE DINITRATE Inactive NORVASC 10 MG TAB 1 tablet by mouth daily NORVASC 10 MG TAB 064510 AMLODIPINE BESYLATE Inactive AZITHROMYCIN 250 MG ORAL TABS 2 tablets PO today---then, 1 tablet PO daily x 4 more days (and 1 optional refill) AZITHROMYCIN 250 MG ORAL TABS 3355596 AZITHROMYCIN Inactive CHERATUSSIN AC 100-10 MG/5ML ORAL SOLN 7.5 mL PO q 4-6 hrs PRN cough CHERATUSSIN AC 100-10 MG/5ML ORAL SOLN 234287 GUAIFENESIN- CODEINE Inactive VIIBRYD 40 MG TABS take 1 tab po qday for depression. VIIBRYD 40 MG TABS VILAZODONE HCL Inactive HYDRALAZINE HCL 25 MG TABS 1 tablet by mouth tid for hypertension HYDRALAZINE HCL 25 MG TABS 666669 HYDRALAZINE HCL Inactive SPIRONOLACTONE 50 MG TABS 1 tablet by mouth twice a day SPIRONOLACTONE 50 MG TABS 539552 SPIRONOLACTONE Inactive FENOFIBRATE 145 MG TABS Take one by mouth daily FENOFIBRATE 145 MG TABS 293916 FENOFIBRATE Inactive PROTONIX 40 MG SOLR 1 po qday for acid reflux PROTONIX 40 MG SOLR 028785 PANTOPRAZOLE SODIUM Inactive CEFDINIR 300 MG ORAL CAPS Take 1 cap po bid x 10 days CEFDINIR 300 MG ORAL CAPS 847379 CEFDINIR Inactive PREDNISONE 20 MG TAB 1 tablet twice daily for 2 days, then 1 tablet once daily for 2 days PREDNISONE 20 MG TAB 427865 PREDNISONE Inactive NYSTATIN 774565 UNIT/ML M/T SUSP 5mL po QID x 10 days NYSTATIN 612379 UNIT/ML M/T SUSP 581645 NYSTATIN Inactive BETADINE 10 % EXT SOLN 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 BETADINE 10 % EXT SOLN 5225329 POVIDONE-IODINE Inactive TRILEPTAL 150 MG ORAL TABS 1 TAB PO Q HS TRILEPTAL 150 MG ORAL TABS 812780 OXCARBAZEPINE Inactive LAMISIL 125 MG ORAL PACK 1 TAB PO DAILY LAMISIL 125 MG ORAL PACK TERBINAFINE HCL Inactive HYDROCHLOROTHIAZIDE TABS Take one by mouth daily HYDROCHLOROTHIAZIDE TABS HYDROCHLOROTHIAZIDE TABS Inactive HYDROCODONE-ACETAMINOPHEN 5-325 MG TABS 1 tab by mouth BID prn back pain 2013 HYDROCODONE-ACETAMINOPHEN 5-325 MG TABS 596498 HYDROCODONE -ACETAMINOPHEN Inactive HYDRALAZINE HCL 50 MG ORAL TABS TWO BY MOUTH THREE TIMES DAILY HYDRALAZINE HCL 50 MG ORAL TABS 640201 HYDRALAZINE HCL Inactive LEVAQUIN 500 MG TAB 1 tablet by mouth daily for 7 days LEVAQUIN 500 MG TAB 120218 LEVOFLOXACIN Inactive SPIRONOLACTONE 25 MG TAB 4 tablets by mouth daily SPIRONOLACTONE 25 MG TAB 015762 SPIRONOLACTONE Inactive MECLIZINE HCL 25 MG TAB one 4 times a day as needed for dizziness MECLIZINE HCL 25 MG TAB 230295 MECLIZINE HCL Inactive CLONIDINE HCL 0.2 MG ORAL TABS 1 TAB BY MOUTH EVERY 8 HOURS 12/29 CLONIDINE HCL 0.2 MG ORAL TABS 958309 CLONIDINE HCL Inactive CYCLOBENZAPRINE HCL 10 MG TABS 1 tablet by mouth three times daily as needed for muscle spasm/pain for 10 days CYCLOBENZAPRINE HCL 10 MG TABS 460526 CYCLOBENZAPRINE HCL Inactive VITAMIN D3 41022 UNIT CAPS 2 CAPS PO WEEKLY VITAMIN D3 10117 UNIT CAPS CHOLECALCIFEROL Inactive FIORICET 50-300-40 MG ORAL CAPS take 1 tab po qday prn migraines. FIORICET 50-300-40 MG ORAL CAPS 913127 [id number] Inactive FLONASE 50 MCG/ACT SUSP 1 spray each nostril twice daily for allergies and runny nose FLONASE 50 MCG/ACT SUSP 1855775 FLUTICASONE PROPIONATE Inactive LORATADINE 10 MG TABS 1 tablet by mouth daily for congestion and allergies. LORATADINE 10 MG TABS 197152 LORATADINE Inactive NITROSTAT 0.4 MG SUBL PRN NITROSTAT 0.4 MG SUBL 801751 NITROGLYCERIN Inactive ZITHROMAX 250 MG TAB 2 po today, then 1 po q days 2-5 ZITHROMAX 250 MG TAB 7027736 AZITHROMYCIN Inactive TERBINAFINE HCL 250 MG TABS 1 tab po qday for foot infection 2014 TERBINAFINE HCL 250 MG TABS 065690 TERBINAFINE HCL Inactive KEFLEX 500 MG CAP 1 po TID x 10 days KEFLEX 500 MG CAP 364504 CEPHALEXIN Inactive BACTRIM DS 800-160 MG TAB 1 tab by mouth twice daily BACTRIM DS 800-160 MG TAB 238831 TRIMETHOPRIM-SULFAMETHOXAZOLE Inactive PREDNISONE 20 MG TAB take 3 tabs daily for 3 days, 2 tabs daily for 3 days, 1 tab daily for 3 days, 1/2 tab daily for 4 days PREDNISONE 20 MG TAB 752487 PREDNISONE Inactive Advance Directives Directive Description Start [...] AUTO - Chemistry sodium, serum 142 mmol/L 250-867 1964/07/17 carbon dioxide, venous blood 28.2 mmol/L 21.0-32.0 [...] Report: CBC-QUEST, COMPREHENSIVE METABOLIC PANEL - Hematology mean corpuscular hemoglobin, RBC 29.9 pg 27.0-33.0 mean corpuscular hemoglobin concentration, RBC 33.1 G/DL % 32.0- 36.0 red blood cell distribution width 15.8 % 11.0-15.0 platelet count 185 THOUSAND/UL 10*3/mm3 002-455 7226/04/14 mean platelet volume 10.9 fL 7.5-12.5 mean corpuscular volume, RBC 90.5 fL 80.0-100.0 hematocrit, blood 42.0 % 38.5-50.0 hemoglobin, blood 13.9 g/dL 13.2-17.1 erythrocyte (RBC) count 4.64 MILLION/UL 10*6/mm3 4.20-5.80 leukocyte count, blood 10.1 THOUSAND/UL 10*3/mm3 3.8-10.8 Lab Report: LIPID PANEL, TSH/899, T4, FREE/866 - Chemistry cholesterol, serum 220 mg/dL 775-527 5003/04/14 HDL cholesterol, serum 30 mg/dL > OR=40 triglyceride, serum, fasting 466 mg/dL <150 LDL cholesterol, serum SEE NOTE mg/dL (calc) mg/dL <130 cholesterol/HDL ratio, serum 7.3 (calc) < OR=5.0 Lab Report: MICROALB/CREAT W/RATIO - Chemistry albumin/creatinine ratio, urine < 30 mg/g mg/g{creat} 0-29 Lab Report: MICROALB/CREAT W/RATIO - Lab microalbumin, urine 80 0-19 Lab Report: VITAMIN D, 25-HYDROXY/09806 - Chemistry vitamin D 25-hydroxy, serum 25 ng/mL 30-100 Office Visit: Confusion, dizziness after fall - Basic LDL target level 130 mg/dL Office Visit: Confusion, dizziness after fall - Chemistry HDL cholesterol, serum, target level 40 mg/dL triglyceride, target level 150 mg/dL cholesterol, target level 200 mg/dL Encounters Code Encounter Date Provider Facility CPT-85119 Level 3 Est. Patient 09:00:37 CDT Rober Rodríguez [facility] [place] CPT-48965 Level 3 Est. Patient 16:07:10 CDT Robbie Busby MD [facility] CPT-80282 Level 4 Est. Patient 11:56:16 CDT Erin Garsia [facility] [place] CPT-32856 Level 3 Est. Patient 17:48:02 CDT Robbie Busby MD [facility] CPT-00795 Level 4 Est. Patient 12:00:49 CALL CENTER DISPATCHER Rober Rodríguez [facility] [place] CPT-58817 Level 3 Est. Patient 09:16:37 CDT Robbie Busby MD [facility]-22737 Level 3 Est. Patient 19:38:43 CDT Robbie Busby MD [facility] CPT-13571 Level 3 Est. Patient 11:53:38 CDT Robbie Busby MD [facility] CPT-81438 Level 4 Est. Patient 12:52:22 CDT Rober Rodríguez [facility] [place] CPT-14351 Level 4 Est. Patient 22:55:17 CDT Robbie Busby MD [facility] CPT-63976 Level 3 Est. Patient 12:38:24 CDT Desmond Diaz DO [facility] CPT-64875 Level 4 Est. Patient 11:25:03 CALL CENTER DISPATCHER Robbie Busby MD [facility] CPT-24801 Level 4 Est. Patient 14:50:10 CDT Robbie Busby MD [facility] CPT-55880 Level 4 Est. Patient 23:30:43 CDT Robbie Busby MD [facility] CPT-53289 Level 4 Est. Patient 10:30:43 CDT Robbie Busby MD [facility] CPT-27968 Level 3 Est. Patient 17:08:12 CDT Alex ALVAREZ [facility] CPT-81836 Level 4 Est. Patient 17:51:38 CDT Robbie Busby MD [facility] CPT-89903 Level 4 Est. Patient 14:00:21 CDT Robbie Busby MD [facility] CPT-49427 Level 4 Est. Patient 12:46:48 CDT Robbie Busby MD [facility] CPT-27402 Level 4 Est. Patient 13:34:33 CDT Robbie Busby MD [facility] CPT-97403 Level 4 Est. Patient 16:58:28 CDT Robbie Busby MD [facility] CPT-45567 Level 3 Est. Patient 19:36:53 CDT Alex Shaw [facility] CPT-20356 Level 3 Est. Patient 12:58:15 CDT Robbie Busby MD [facility] Procedures Code Procedure Name Date Entry Date Standard Description CPT-J1071 Depo Testosterone 200mg 08:24:00 CDT CPT-28886 Abx/Therapy Injection 08:24:00 CDT CPT-47685 Venipuncture Draw Fee 14:39:06 CDT CPT-96371 Ribs unilateral 2V - XRAY USE ONLY 12:10:11 CDT CPT-65766 First Vx - Ix admin for Medicare patients 16:32:53 CDT CPT-43949 Boostrix Intramuscular Suspension 5-2.5-18.5 16:32:53 CDT CPT-52915 TB Skin Test 11:42:28 CDT CPT-14865 Tdap 7yrs or > 11:42:28 CDT CPT-J0696 Rocephin 1000 mg (Ceftriaxone) 17:43:43 CALL CENTER DISPATCHER CPT-J1040 Depo Medrol 80 mg (Methyl Prednisolone Acetate) 17:43: 43 CALL CENTER DISPATCHER CPT-J1100 Decadron 8mg (Dexamethasone) 17:43:42 CALL CENTER DISPATCHER CPT-11956 Abx/Therapy Injection 17:43:42 CALL CENTER DISPATCHER CPT-92940 Abx/Therapy Injection 17:43:42 CALL CENTER DISPATCHER CPT-J1040 Depo Medrol 80 mg (Methyl Prednisolone Acetate) 09:43: 34 CALL CENTER DISPATCHER CPT-J1100 Decadron 8mg (Dexamethasone) 09:43:34 CALL CENTER DISPATCHER CPT-J0696 Rocephin 1gm Inj Solr 09:43:34 CALL CENTER DISPATCHER CPT-20200 Wound Culture - LAB USE ONLY 14:00:21 CDT CPT-I/D I/D Abscess 09:16:37 CDT CPT-17717 Venipuncture Draw Fee 15:20:23 CDT CPT-91153 Microalbumin - LAB USE ONLY 16:02:19 CDT CPT-51600 CBC - LAB USE ONLY 16:02:19 CDT CPT-39253 Venipuncture Draw Fee 16:02:19 CDT CPT-G0438 Initial Annual Wellness Exam 08:10:28 CDT CPT-71303 Venipuncture Draw Fee 13:07:17 CDT CPT-G0008 Administration of Influenza Virus Vaccine 16:09:59 CDT CPT-73134 Fluzone Quadrivalent Intramuscular Suspension 0.5 ML 16: 09:59 CDT CPT-89990 Spec Collection and Handling Fee 15:05:50 CDT
--- OUTSIDE RECORDS SUMMARY | 2018-04-18 11:33 | XMS REPORT | Clinical Summary ---
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 HYDRALAZINE HCL 76998003202 Active Jishantel Rodríguez APRN Active VITAMIN D3 45348 UNIT ORAL TABS 2 po weekly CHOLECALCIFEROL 28230415717 Active Robbie Busby MD Active OXYCODONE HCL ER 10 MG ORAL T12A 1 tab po 3 times qd. OXYCODONE HCL 69175802035 Active Robbie Busby MD Active NITROSTAT 0.4 MG SUBL PRN NITROGLYCERIN 51209084794 No Longer Active Robbie Busby MD Active LORATADINE 10 MG TABS 1 tablet by mouth daily for congestion and allergies. LORATADINE 47159305844 No Longer Active Robbie Busby MD Active FLONASE 50 MCG/ACT SUSP 1 spray each nostril twice daily for allergies and runny nose FLUTICASONE PROPIONATE 67837271699 No Longer Active Robbie Busby MD Active FIORICET 50-300-40 MG ORAL CAPS take 1 tab po qday prn migraines. [id number] 55004807371 No Longer Active Robbie Busby MD Active VITAMIN D3 29299 UNIT CAPS 2 CAPS PO WEEKLY CHOLECALCIFEROL 05664465893 No Longer Active Robbie Busby MD Active CYCLOBENZAPRINE HCL 10 MG TABS 1 tablet by mouth three times daily as needed for muscle spasm/pain for 10 days CYCLOBENZAPRINE HCL 94903552925 No Longer Active Robbie Busby MD Active PREDNISONE 20 MG TAB take 3 tabs daily for 3 days, 2 tabs daily for 3 days, 1 tab daily for 3 days, 1/2 tab daily for 4 days PREDNISONE 31917791197 No Longer Active Erin Garsia APRN Active CLONIDINE HCL 0.2 MG ORAL TABS 1 TAB BY MOUTH EVERY 8 HOURS 12/29 CLONIDINE HCL 52101084720 No Longer Active Erin Garsia APRN Active MECLIZINE HCL 25 MG TAB one 4 times a day as needed for dizziness MECLIZINE HCL 20018489179 No Longer Active Erin Garsia 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 SPIRONOLACTONE 25 MG TAB 4 tablets by mouth daily SPIRONOLACTONE 53746881931 No Longer Active Erin Garsia APRN Active LEVAQUIN 500 MG TAB 1 tablet by mouth daily for 7 days LEVOFLOXACIN 79591124274 No Longer Active Erin Garsia APRN Active BACTRIM DS 800-160 MG TAB 1 tab by mouth twice daily TRIMETHOPRIM-SULFAMETHOXAZOLE 89376559511 No Longer Active Robbie Busby MD Active HYDRALAZINE HCL 50 MG ORAL TABS TWO BY MOUTH THREE TIMES DAILY HYDRALAZINE HCL 49232558935 No Longer Active 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 HYDROCODONE-ACETAMINOPHEN 5-325 MG TABS 1 tab by mouth BID prn back pain 2013 HYDROCODONE-ACETAMINOPHEN 39323328825 No Longer Active 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 HYDROCHLOROTHIAZIDE TABS Take one by mouth daily HYDROCHLOROTHIAZIDE TABS 22468786857 No Longer Active 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 LAMISIL 125 MG ORAL PACK 1 TAB PO DAILY TERBINAFINE HCL 55130945352 No Longer Active 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 TRILEPTAL 150 MG ORAL TABS 1 TAB PO Q HS OXCARBAZEPINE 77779502240 No Longer Active 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 BETADINE 10 % EXT SOLN 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 POVIDONE-IODINE 99938533792 No Longer Active 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 NYSTATIN 532982 UNIT/ML M/T SUSP 5mL po QID x 10 days NYSTATIN 93999424442 No Longer Active Erin Garsia APRN Active PREDNISONE 20 MG TAB 1 tablet twice daily for 2 days, then 1 tablet once daily for 2 days PREDNISONE 18389748074 No Longer Active Robbie Busby MD Active CEFDINIR 300 MG ORAL CAPS Take 1 cap po bid x 10 days CEFDINIR 86536364325 No Longer Active Robbie Busby MD Active AMLODIPINE BESYLATE 10 MG TABS 1 tablet by mouth daily AMLODIPINE BESYLATE 67760834153 Active Robbie Busby MD Active CARVEDILOL 25 MG TABS 1 & 1/2 TAB po BID CARVEDILOL 90872619512 Active Robbie Busby MD Active NEXIUM 40 MG CPDR 1 cap by mouth daily ESOMEPRAZOLE MAGNESIUM 20571247213 Active Robbie Busby MD Active PROTONIX 40 MG SOLR 1 po qday for acid reflux PANTOPRAZOLE SODIUM 35608529292 No Longer Active Glai Raida Active KEFLEX 500 MG CAP 1 po TID x 10 days CEPHALEXIN 64918559643 No Longer Active Robbie Busby MD Active TOPIRAMATE 50 MG ORAL TABS take 1 tab po BID for migraines. TOPIRAMATE 68306674910 Active Robbie Busby MD Active TEMAZEPAM 15 MG ORAL CAPS 1 TAB PO Q HS TEMAZEPAM 01047685684 Active Robbie Busby MD Active ALPRAZOLAM 2 MG ORAL TABS 1 TAB PO BID ALPRAZOLAM 01470849276 Active Robbie Busby MD Active FENOFIBRATE 145 MG TABS Take one by mouth daily FENOFIBRATE 07592254227 No Longer Active Robbie Busby MD Active SPIRONOLACTONE 50 MG TABS 1 tablet by mouth twice a day SPIRONOLACTONE 60270523866 No Longer Active Robbie Busby MD Active HYDRALAZINE HCL 25 MG TABS 1 tablet by mouth tid for hypertension HYDRALAZINE HCL 10288583701 No Longer Active Robbie Busby MD Active VIIBRYD 40 MG TABS take 1 tab po qday for depression. VILAZODONE HCL 79276498360 No Longer Active Robbie Busby MD Active TERBINAFINE HCL 250 MG TABS 1 tab po qday for foot infection 2014 TERBINAFINE HCL 67326428885 No Longer Active Robbie Busby MD Active GABAPENTIN 300 MG CAPS 1 po q hs for nerve pain GABAPENTIN 81721148964 Active Robbie Busby MD Active CHERATUSSIN AC 100-10 MG/5ML ORAL SOLN 7.5 mL PO q 4-6 hrs PRN cough GUAIFENESIN-CODEINE 17809474905 No Longer Active Robbie Busby MD Active AZITHROMYCIN 250 MG ORAL TABS 2 tablets PO today---then, 1 tablet PO daily x 4 more days (and 1 optional refill) AZITHROMYCIN 04796398685 No Longer Active Robbie Busby MD Active NORVASC 10 MG TAB 1 tablet by mouth daily AMLODIPINE BESYLATE 21557533474 No Longer Active Alex ALVAREZ Active IMDUR 60 MG TAB CR take 1 tab po qday for blood pressure ISOSORBIDE MONONITRATE Active Robbie Busby MD Active ISOSORBIDE DINITRATE 30 MG TABS Take one by mouth daily ISOSORBIDE DINITRATE 79852649248 No Longer Active Robbie Busby MD Active VIIBRYD 40 MG TABS 1 TA B PO DAILY VILAZODONE HCL 68749409421 Active Robbie Busby MD Active ZITHROMAX 250 MG TAB 2 po today, then 1 po q days 2-5 AZITHROMYCIN 66685972159 No Longer Active Robbie Busby MD Active [id number]-3 0.3 MG/24HR PTWK apply 2 patches q week for HTN CLONIDINE HCL 02845355386 Active Robbie Busby MD Active DOXAZOSIN MESYLATE 4 MG TABS Take one by mouth daily DOXAZOSIN MESYLATE 84108555841 Active Robbie Busby MD Active TOPROL XL 200 MG RT31R-DXR Take one by mouth daily METOPROLOL SUCCINATE 78087457654 Active Robbie Busby MD Active VENLAFAXINE HCL ER 150 MG [id number] Take one by mouth daily VENLAFAXINE HCL 17865135715 Active Robbie Busby MD Active LIPITOR 40 MG TABS Take one by mouth daily ATORVASTATIN CALCIUM 94625054820 Active Robbie Busby MD Active ISOSORBIDE DINITRATE 30 MG TABS Take one by mouth daily ISOSORBIDE DINITRATE 30 MG TABS 534768 ISOSORBIDE DINITRATE Inactive NORVASC 10 MG TAB 1 tablet by mouth daily NORVASC 10 MG TAB 776565 AMLODIPINE BESYLATE Inactive AZITHROMYCIN 250 MG ORAL TABS 2 tablets PO today---then, 1 tablet PO daily x 4 more days (and 1 optional refill) AZITHROMYCIN 250 MG ORAL TABS 1230191 AZITHROMYCIN Inactive CHERATUSSIN AC 100-10 MG/5ML ORAL SOLN 7.5 mL PO q 4-6 hrs PRN cough CHERATUSSIN AC 100-10 MG/5ML ORAL SOLN 649668 GUAIFENESIN- CODEINE Inactive VIIBRYD 40 MG TABS take 1 tab po qday for depression. VIIBRYD 40 MG TABS VILAZODONE HCL Inactive HYDRALAZINE HCL 25 MG TABS 1 tablet by mouth tid for hypertension HYDRALAZINE HCL 25 MG TABS 274010 HYDRALAZINE HCL Inactive SPIRONOLACTONE 50 MG TABS 1 tablet by mouth twice a day SPIRONOLACTONE 50 MG TABS 039199 SPIRONOLACTONE Inactive FENOFIBRATE 145 MG TABS Take one by mouth daily FENOFIBRATE 145 MG TABS 547513 FENOFIBRATE Inactive PROTONIX 40 MG SOLR 1 po qday for acid reflux PROTONIX 40 MG SOLR 742641 PANTOPRAZOLE SODIUM Inactive CEFDINIR 300 MG ORAL CAPS Take 1 cap po bid x 10 days CEFDINIR 300 MG ORAL CAPS 773701 CEFDINIR Inactive PREDNISONE 20 MG TAB 1 tablet twice daily for 2 days, then 1 tablet once daily for 2 days PREDNISONE 20 MG TAB 478469 PREDNISONE Inactive NYSTATIN 873932 UNIT/ML M/T SUSP 5mL po QID x 10 days NYSTATIN 399173 UNIT/ML M/T SUSP 827600 NYSTATIN Inactive BETADINE 10 % EXT SOLN 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 BETADINE 10 % EXT SOLN 3402717 POVIDONE-IODINE Inactive TRILEPTAL 150 MG ORAL TABS 1 TAB PO Q HS TRILEPTAL 150 MG ORAL TABS 575972 OXCARBAZEPINE Inactive LAMISIL 125 MG ORAL PACK 1 TAB PO DAILY LAMISIL 125 MG ORAL PACK TERBINAFINE HCL Inactive HYDROCHLOROTHIAZIDE TABS Take one by mouth daily HYDROCHLOROTHIAZIDE TABS HYDROCHLOROTHIAZIDE TABS Inactive HYDROCODONE-ACETAMINOPHEN 5-325 MG TABS 1 tab by mouth BID prn back pain 2013 HYDROCODONE-ACETAMINOPHEN 5-325 MG TABS 080571 HYDROCODONE -ACETAMINOPHEN Inactive HYDRALAZINE HCL 50 MG ORAL TABS TWO BY MOUTH THREE TIMES DAILY HYDRALAZINE HCL 50 MG ORAL TABS 988505 HYDRALAZINE HCL Inactive LEVAQUIN 500 MG TAB 1 tablet by mouth daily for 7 days LEVAQUIN 500 MG TAB 046126 LEVOFLOXACIN Inactive SPIRONOLACTONE 25 MG TAB 4 tablets by mouth daily SPIRONOLACTONE 25 MG TAB 787786 SPIRONOLACTONE Inactive MECLIZINE HCL 25 MG TAB one 4 times a day as needed for dizziness MECLIZINE HCL 25 MG TAB 489790 MECLIZINE HCL Inactive CLONIDINE HCL 0.2 MG ORAL TABS 1 TAB BY MOUTH EVERY 8 HOURS 12/29 CLONIDINE HCL 0.2 MG ORAL TABS 086867 CLONIDINE HCL Inactive CYCLOBENZAPRINE HCL 10 MG TABS 1 tablet by mouth three times daily as needed for muscle spasm/pain for 10 days CYCLOBENZAPRINE HCL 10 MG TABS 894666 CYCLOBENZAPRINE HCL Inactive VITAMIN D3 30282 UNIT CAPS 2 CAPS PO WEEKLY VITAMIN D3 18816 UNIT CAPS CHOLECALCIFEROL Inactive FIORICET 50-300-40 MG ORAL CAPS take 1 tab po qday prn migraines. FIORICET 50-300-40 MG ORAL CAPS 559573 [id number] Inactive FLONASE 50 MCG/ACT SUSP 1 spray each nostril twice daily for allergies and runny nose FLONASE 50 MCG/ACT SUSP 0570669 FLUTICASONE PROPIONATE Inactive LORATADINE 10 MG TABS 1 tablet by mouth daily for congestion and allergies. LORATADINE 10 MG TABS 498919 LORATADINE Inactive NITROSTAT 0.4 MG SUBL PRN NITROSTAT 0.4 MG SUBL 134313 NITROGLYCERIN Inactive ZITHROMAX 250 MG TAB 2 po today, then 1 po q days 2-5 ZITHROMAX 250 MG TAB 4447357 AZITHROMYCIN Inactive TERBINAFINE HCL 250 MG TABS 1 tab po qday for foot infection 2014 TERBINAFINE HCL 250 MG TABS 552320 TERBINAFINE HCL Inactive KEFLEX 500 MG CAP 1 po TID x 10 days KEFLEX 500 MG CAP 695591 CEPHALEXIN Inactive BACTRIM DS 800-160 MG TAB 1 tab by mouth twice daily BACTRIM DS 800-160 MG TAB 632223 TRIMETHOPRIM-SULFAMETHOXAZOLE Inactive PREDNISONE 20 MG TAB take 3 tabs daily for 3 days, 2 tabs daily for 3 days, 1 tab daily for 3 days, 1/2 tab daily for 4 days PREDNISONE 20 MG TAB 162979 PREDNISONE Inactive Advance Directives Directive Description Start [...] AUTO - Chemistry sodium, serum 142 mmol/L 310-220 9709/07/17 carbon dioxide, venous blood 28.2 mmol/L 21.0-32.0 [...] % 11.0-15.0 platelet count 185 THOUSAND/UL 10*3/mm3 096-740 8048/04/14 mean platelet volume 10.9 fL 7.5-12.5 Lab Report: LIPID PANEL, TSH/899, T4, FREE/866 - Chemistry cholesterol, serum 220 mg/dL 000-525 1933/04/14 HDL cholesterol, serum 30 mg/dL > OR=40 triglyceride, serum, fasting 466 mg/dL <150 LDL cholesterol, serum SEE NOTE mg/dL (calc) mg/dL <130 cholesterol/HDL ratio, serum 7.3 (calc) < OR=5.0 Lab Report: MICROALB/CREAT W/RATIO - Chemistry albumin/creatinine ratio, urine < 30 mg/g mg/g{creat} 0-29 Lab Report: MICROALB/CREAT W/RATIO - Lab microalbumin, urine 80 0-19 Lab Report: VITAMIN D, 25-HYDROXY/88851 - Chemistry vitamin D 25-hydroxy, serum 25 ng/mL 30-100 Office Visit: Confusion, dizziness after fall - Basic LDL target level 130 mg/dL Office Visit: Confusion, dizziness after fall - Chemistry HDL cholesterol, serum, target level 40 mg/dL triglyceride, target level 150 mg/dL cholesterol, target level 200 mg/dL Encounters Code Encounter Date Provider Facility CPT-81848 Level 3 Est. Patient 09:00:37 CDT Rober Rodríguez [facility] CPT-39619 Level 3 Est. Patient 16:07:10 CDT Robbie Busby MD [facility] CPT-67735 Level 4 Est. Patient 11:56:16 CDT Erin Garsia [facility] CPT-72549 Level 3 Est. Patient 17:48:02 CDT Robbie Busby MD [facility] CPT-00834 Level 4 Est. Patient 12:00:49 [employer] Rober Rodríguez [facility] CPT-92264 Level 3 Est. Patient 09:16:37 CDT Robbie Busby MD [facility]-85913 Level 3 Est. Patient 19:38:43 CDT Robbie Busby MD [facility] CPT-37662 Level 3 Est. Patient 11:53:38 CDT Robbie Busby MD [facility] CPT-37175 Level 4 Est. Patient 12:52:22 CDT Rober Rodríguez [facility] CPT-01156 Level 4 Est. Patient 22:55:17 CDT Robbie Busby MD [facility] CPT-29922 Level 3 Est. Patient 12:38:24 CDT Desmond Diaz DO [facility] CPT-58570 Level 4 Est. Patient 11:25:03 [employer] Robbie Busby MD [facility] CPT-53663 Level 4 Est. Patient 14:50:10 CDT Robbie Busby MD [facility] CPT-35779 Level 4 Est. Patient 23:30:43 CDT Robbie Busby MD [facility] CPT-35724 Level 4 Est. Patient 10:30:43 CDT Robbie Busby MD [facility] CPT-81730 Level 3 Est. Patient 17:08:12 CDT Alex ALVAREZ [facility] CPT-40878 Level 4 Est. Patient 17:51:38 CDT Robbie Busby MD [facility] CPT-11154 Level 4 Est. Patient 14:00:21 CDT Robbie Busby MD [facility] CPT-06541 Level 4 Est. Patient 12:46:48 CDT Robbie Busby MD [facility] CPT-27668 Level 4 Est. Patient 13:34:33 CDT Robbie Busby MD [facility] CPT-88091 Level 4 Est. Patient 16:58:28 CDT Robbie Busby MD [facility] CPT-17108 Level 3 Est. Patient 19:36:53 CDT Alex Shaw [facility] CPT-72544 Level 3 Est. Patient 12:58:15 CDT Robbie Busby MD [facility] Procedures Code Procedure Name Date Entry Date Standard Description CPT-J1071 Depo Testosterone 200mg 08:24:00 CDT CPT-85447 Abx/Therapy Injection 08:24:00 CDT CPT-87943 Venipuncture Draw Fee 14:39:06 CDT CPT-39738 Ribs unilateral 2V - XRAY USE ONLY 12:10:11 CDT CPT-46525 First Vx - Ix admin for Medicare patients 16:32:53 CDT CPT-88716 Boostrix Intramuscular Suspension 5-2.5-18.5 16:32:53 CDT CPT-00977 TB Skin Test 11:42:28 CDT CPT-65289 Tdap 7yrs or > 11:42:28 CDT CPT-J0696 Rocephin 1000 mg (Ceftriaxone) 17:43:43 [employer] CPT-J1040 Depo Medrol 80 mg (Methyl Prednisolone Acetate) 17:43: 43 [employer] CPT-J1100 Decadron 8mg (Dexamethasone) 17:43:42 [employer]ICAL [employer] CPT-40831 Abx/Therapy Injection 17:43:42 [employer]LECTRICAL [employer] CPT-18774 Abx/Therapy Injection 17:43:42 ELECTRICAL TROUBL[employer] CPT-J1040 Depo Medrol 80 mg (Methyl Prednisolone Acetate) 09:43: 34 [employer]ICAL [employer] CPT-J1100 Decadron 8mg (Dexamethasone) 09:43:34 [employer]LECTRICAL [employer]OU[employer] CPT-J0696 Rocephin 1gm Inj Solr 09:43:34 [employer]ICAL [employer] CPT-10087 Wound Culture - LAB USE ONLY 14:00:21 CDT CPT-I/D I/D Abscess 09:16:37 CDT CPT-40004 Venipuncture Draw Fee 15:20:23 CDT CPT-87236 Microalbumin - LAB USE ONLY 16:02:19 CDT CPT-86065 CBC - LAB USE ONLY 16:02:19 CDT CPT-80619 Venipuncture Draw Fee 16:02:19 CDT CPT-G0438 Initial Annual Wellness Exam 08:10:28 CDT CPT-15996 Venipuncture Draw Fee 13:07:17 CDT CPT-G0008 Administration of Influenza Virus Vaccine 16:09:59 CDT CPT-72975 Fluzone Quadrivalent Intramuscular Suspension 0.5 ML 16: 09:59 CDT CPT-02994 Spec Collection and Handling Fee 15:05:50 CDT
--- OUTSIDE RECORDS SUMMARY | 2018-04-18 11:34 | XMS REPORT | Clinical Summary ---
Author Author Admin, AKUA Organization [employer] Address Unknown Phone Unavailable Allergies, Adverse [...] unspecified sites URI 465.9 Active Rober Rodríguez CLINICAL THERAPIST Acute upper respiratory infections of unspecified site [...] pain, chronic 724.2 Active Robbie Busby MD [place]anner Medication List Medication Instructions Start Date Stop Date Generic Name NDC Status Provider Patient Instruction GUAIFENESIN ER 600 MG ORAL TABLET EXTENDED RELEASE 12 HOUR 1 tab po q am 2016 GUAIFENESIN [id number] No Longer Active Robbie Busby MD Active DIVALPROEX SODIUM ER 500 MG ORAL TABLET EXTENDED RELEASE 24 HOUR Once daily DIVALPROEX SODIUM 37341677623 Active Robbie Busby MD Active DEPO-TESTOSTERONE 200 MG/ML INTRAMUSCULAR SOLUTION 1 IM Injections every 2 weeks for low testosterone TESTOSTERONE CYPIONATE 09637573276 Active Zulema Blank LPN Active CYCLOBENZAPRINE HCL 10 MG ORAL TABLET 1 po TID PRN muscle spasm/pain for 10 days CYCLOBENZAPRINE HCL 00609578125 Active JONATHAN Moncada Active FLUTICASONE PROPIONATE 50 MCG/ACT NASAL SUSPENSION 2 sprays per nostril bid for 1 week, then 1 spray bid FLUTICASONE PROPIONATE 81857399007 Active Rober Rodríguez CLINICAL THERAPIST Active HYDRALAZINE HCL 25 MG ORAL TABLET Take 1 tab BID. HYDRALAZINE HCL 12220508814 Active Rober Rodríguez APRN Active VITAMIN D3 03758 UNIT ORAL TABLET 2 po weekly CHOLECALCIFEROL 43005072805 Active Robbie Busby MD Active OXYCODONE HCL ER 10 MG ORAL TABLET ER 12 HOUR ABUSE-DETERRENT 1 tab po 3 times qd. OXYCODONE HCL 32656298841 Active Robbie Busby MD Active NITROSTAT 0.4 MG SUBLINGUAL TABLET SUBLINGUAL PRN NITROGLYCERIN 56173900037 No Longer Active Robbie Busby MD Active LORATADINE 10 MG ORAL TABLET 1 tablet by mouth daily for congestion and allergies. LORATADINE 45941635901 No Longer Active Robbie Busby MD Active FLONASE 50 MCG/ACT NASAL SUSPENSION 1 spray each nostril twice daily for allergies and runny nose FLUTICASONE PROPIONATE 25376922554 No Longer Active Robbie Busby MD Active FIORICET 50-300-40 MG ORAL CAPSULE take 1 tab po qday prn migraines. [id number] 63772877298 No Longer Active Robbie Busby MD Active VITAMIN D3 59420 UNIT ORAL CAPSULE 2 CAPS PO WEEKLY CHOLECALCIFEROL 83465880279 No Longer Active Robbie Busby MD Active CYCLOBENZAPRINE HCL 10 MG ORAL TABLET 1 tablet by mouth three times daily as needed for muscle spasm/pain for 10 days CYCLOBENZAPRINE HCL 70586503344 No Longer Active Robbie Busby MD Active PREDNISONE 20 MG ORAL TABLET take 3 tabs daily for 3 days, 2 tabs daily for 3 days, 1 tab daily for 3 days, 1/2 tab daily for 4 days PREDNISONE 28177764829 No Longer Active Erin Garsia APRN Active CLONIDINE HCL 0.2 MG ORAL TABLET 1 TAB BY MOUTH EVERY 8 HOURS CLONIDINE HCL 47831860176 No Longer Active Erin Garsia APRN Active MECLIZINE HCL 25 MG ORAL TABLET one 4 times a day as needed for dizziness MECLIZINE HCL 08029556923 No Longer Active Erin Garsia APRN Active SPIRONOLACTONE 25 MG ORAL TABLET 4 tablets by mouth daily SPIRONOLACTONE 39477763591 No Longer Active Erin Garsia APRN Active LEVAQUIN 500 MG ORAL TABLET 1 tablet by mouth daily for 7 days LEVOFLOXACIN 93359346416 No Longer Active Erin Garsia APRN Active BACTRIM DS 800-160 MG ORAL TABLET 1 tab by mouth twice daily 2015 TRIMETHOPRIM-SULFAMETHOXAZOLE 26704854401 No Longer Active Robbie Busby MD Active HYDRALAZINE HCL 50 MG ORAL TABLET TWO BY MOUTH THREE TIMES DAILY HYDRALAZINE HCL 27858324487 No Longer Active Rober Rodríguez APRN Active HYDROCODONE-ACETAMINOPHEN 5-325 MG ORAL TABLET 1 tab by mouth BID prn back pain HYDROCODONE-ACETAMINOPHEN 88032505225 No Longer Active Jillld Rodríguez APRN Active HYDROCHLOROTHIAZIDE TABLET Take one by mouth daily HYDROCHLOROTHIAZIDE TABS 65595812800 No Longer Active Andrellld Rodríguez APRN Active LAMISIL 125 MG ORAL PACKET 1 TAB PO DAILY TERBINAFINE HCL 49323158547 No Longer Active Andrellld Rodríguez APRN Active TRILEPTAL 150 MG ORAL TABLET 1 TAB PO Q HS OXCARBAZEPINE 81985964025 No Longer Active Rober Rodríguez APRN Active BETADINE 10 % EXTERNAL SOLUTION 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 07/29 POVIDONE-IODINE 71491903775 No Longer Active Rober Rodríguez APRN Active NYSTATIN 779913 UNIT/ML MOUTH/THROAT SUSPENSION 5mL po QID x 10 days NYSTATIN 01266086986 No Longer Active Erin Garsia APRN Active PREDNISONE 20 MG ORAL TABLET 1 tablet twice daily for 2 days, then 1 tablet once daily for 2 days PREDNISONE 77334660994 No Longer Active Robbie Busby MD Active CEFDINIR 300 MG ORAL CAPSULE Take 1 cap po bid x 10 days CEFDINIR 96574002606 No Longer Active Robbie Busby MD Active AMLODIPINE BESYLATE 10 MG ORAL TABLET 1 tablet by mouth daily AMLODIPINE BESYLATE 47502531391 Active Robbie Busby MD Active CARVEDILOL 25 MG ORAL TABLET 1 & 1/2 TAB po BID CARVEDILOL 85523902191 Active Robbie Busby MD Active NEXIUM 40 MG ORAL CAPSULE DELAYED RELEASE 1 cap by mouth daily ESOMEPRAZOLE MAGNESIUM 54639169512 Active Robbie Busby MD Active PROTONIX 40 MG INTRAVENOUS SOLUTION RECONSTITUTED 1 po qday for acid reflux PANTOPRAZOLE SODIUM 02468187624 No Longer Active Gali Raida Active KEFLEX 500 MG ORAL CAPSULE 1 po TID x 10 days CEPHALEXIN 08206199770 No Longer Active Robbie Busby MD Active TOPIRAMATE 50 MG ORAL TABLET take 1 tab po BID for migraines. TOPIRAMATE 89222259398 Active Robbie Busby MD Active TEMAZEPAM 15 MG ORAL CAPSULE 1 TAB PO Q HS TEMAZEPAM 74286836569 Active Robbie Busby MD Active ALPRAZOLAM 2 MG ORAL TABLET 1 TAB PO BID ALPRAZOLAM 86178690450 Active Robbie Busby MD Active FENOFIBRATE 145 MG ORAL TABLET Take one by mouth daily FENOFIBRATE 21073159916 No Longer Active Robbie Busby MD Active SPIRONOLACTONE 50 MG ORAL TABLET 1 tablet by mouth twice a day SPIRONOLACTONE 24852651755 No Longer Active Robbie Busby MD Active HYDRALAZINE HCL 25 MG ORAL TABLET 1 tablet by mouth tid for hypertension 2013 HYDRALAZINE HCL 79443733173 No Longer Active Robbie Busby MD Active VIIBRYD 40 MG ORAL TABLET take 1 tab po qday for depression. 2014 VILAZODONE HCL 15661047297 No Longer Active Robbie Busby MD Active TERBINAFINE HCL 250 MG ORAL TABLET 1 tab po qday for foot infection TERBINAFINE HCL 22299038737 No Longer Active Robbie Busby MD Active GABAPENTIN 300 MG ORAL CAPSULE 1 po q hs for nerve pain GABAPENTIN 01072211252 Active Robibe Busby MD Active CHERATUSSIN AC 100-10 MG/5ML ORAL SOLUTION 7.5 mL PO q 4-6 hrs PRN cough 2014 GUAIFENESIN-CODEINE 11894014440 No Longer Active Robbie Busby MD Active AZITHROMYCIN 250 MG ORAL TABLET 2 tablets PO today---then, 1 tablet PO daily x 4 more days (and 1 optional refill) AZITHROMYCIN 16088226643 No Longer Active Robbie Busby MD Active NORVASC 10 MG ORAL TABLET 1 tablet by mouth daily AMLODIPINE BESYLATE 32854895008 No Longer Active Alex ALVAREZ Active IMDUR 60 MG ORAL TABLET EXTENDED RELEASE 24 HOUR take 1 tab po qday for blood pressure ISOSORBIDE MONONITRATE 91460585527 Active Robbie Busby MD Active ISOSORBIDE DINITRATE 30 MG ORAL TABLET Take one by mouth daily ISOSORBIDE DINITRATE 25923971496 No Longer Active Robbie Busby MD Active VIIBRYD 40 MG ORAL TABLET 1 TA B PO DAILY VILAZODONE HCL 01771770234 Active Robbie Busby MD Active ZITHROMAX 250 MG ORAL TABLET 2 po today, then 1 po q days 2-5 AZITHROMYCIN 15156804067 No Longer Active Robbie Busby MD Active ENHZFOCK-PYH-4 0.3 MG/24HR TRANSDERMAL PATCH WEEKLY apply 2 patches q week for HTN CLONIDINE HCL 81765294490 Active Robbie Busby MD Active DOXAZOSIN MESYLATE 4 MG ORAL TABLET Take one by mouth daily DOXAZOSIN MESYLATE 74905032412 Active Robbie Busby MD Active TOPROL XL 200 MG ORAL TABLET EXTENDED RELEASE 24 HOUR Take one by mouth daily METOPROLOL SUCCINATE 50415548715 Active Robbie Busby MD Active VENLAFAXINE HCL ER 150 MG ORAL TABLET EXTENDED RELEASE 24 HOUR Take one by mouth daily VENLAFAXINE HCL 06085621132 Active Robbie Busby MD Active LIPITOR 40 MG ORAL TABLET Take one by mouth daily ATORVASTATIN CALCIUM 06738748543 Active Robbie Busby MD Active ISOSORBIDE DINITRATE 30 MG ORAL TABLET Take one by mouth daily ISOSORBIDE DINITRATE 30 MG ORAL TABLET 960593 ISOSORBIDE DINITRATE Inactive NORVASC 10 MG ORAL TABLET 1 tablet by mouth daily NORVASC 10 MG ORAL TABLET 974010 AMLODIPINE BESYLATE Inactive AZITHROMYCIN 250 MG ORAL TABLET 2 tablets PO today---then, 1 tablet PO daily x 4 more days (and 1 optional refill) AZITHROMYCIN 250 MG ORAL TABLET 742851 AZITHROMYCIN Inactive CHERATUSSIN AC 100-10 MG/5ML ORAL SOLUTION 7.5 mL PO q 4-6 hrs PRN cough 2014 CHERATUSSIN AC 100-10 MG/5ML ORAL SOLUTION 412984 GUAIFENESIN-CODEINE Inactive VIIBRYD 40 MG ORAL TABLET take 1 tab po qday for depression. 2014 VIIBRYD 40 MG ORAL TABLET VILAZODONE HCL Inactive HYDRALAZINE HCL 25 MG ORAL TABLET 1 tablet by mouth tid for hypertension 2013 HYDRALAZINE HCL 25 MG ORAL TABLET 222774 HYDRALAZINE HCL Inactive SPIRONOLACTONE 50 MG ORAL TABLET 1 tablet by mouth twice a day SPIRONOLACTONE 50 MG ORAL TABLET 683428 SPIRONOLACTONE Inactive FENOFIBRATE 145 MG ORAL TABLET Take one by mouth daily FENOFIBRATE 145 MG ORAL TABLET 384227 FENOFIBRATE Inactive PROTONIX 40 MG INTRAVENOUS SOLUTION RECONSTITUTED 1 po qday for acid reflux PROTONIX 40 MG INTRAVENOUS SOLUTION RECONSTITUTED 804851 PANTOPRAZOLE SODIUM Inactive CEFDINIR 300 MG ORAL CAPSULE Take 1 cap po bid x 10 days CEFDINIR 300 MG ORAL CAPSULE 066985 CEFDINIR Inactive PREDNISONE 20 MG ORAL TABLET 1 tablet twice daily for 2 days, then 1 tablet once daily for 2 days PREDNISONE 20 MG ORAL TABLET 541020 PREDNISONE Inactive NYSTATIN 228771 UNIT/ML MOUTH/THROAT SUSPENSION 5mL po QID x 10 days NYSTATIN 707229 UNIT/ML MOUTH/THROAT SUSPENSION 775702 NYSTATIN Inactive BETADINE 10 % EXTERNAL SOLUTION 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 07/29 BETADINE 10 % EXTERNAL SOLUTION 6690370 POVIDONE-IODINE Inactive TRILEPTAL 150 MG ORAL TABLET 1 TAB PO Q HS TRILEPTAL 150 MG ORAL TABLET 579094 OXCARBAZEPINE Inactive LAMISIL 125 MG ORAL PACKET 1 TAB PO DAILY LAMISIL 125 MG ORAL PACKET TERBINAFINE HCL Inactive HYDROCHLOROTHIAZIDE TABLET Take one by mouth daily HYDROCHLOROTHIAZIDE TABLET HYDROCHLOROTHIAZIDE TABS Inactive HYDROCODONE-ACETAMINOPHEN 5-325 MG ORAL TABLET 1 tab by mouth BID prn back pain HYDROCODONE-ACETAMINOPHEN 5-325 MG ORAL TABLET 057177 HYDROCODONE-ACETAMINOPHEN Inactive HYDRALAZINE HCL 50 MG ORAL TABLET TWO BY MOUTH THREE TIMES DAILY HYDRALAZINE HCL 50 MG ORAL TABLET 561123 HYDRALAZINE HCL Inactive LEVAQUIN 500 MG ORAL TABLET 1 tablet by mouth daily for 7 days LEVAQUIN 500 MG ORAL TABLET 553880 LEVOFLOXACIN Inactive SPIRONOLACTONE 25 MG ORAL TABLET 4 tablets by mouth daily SPIRONOLACTONE 25 MG ORAL TABLET 829659 SPIRONOLACTONE Inactive MECLIZINE HCL 25 MG ORAL TABLET one 4 times a day as needed for dizziness MECLIZINE HCL 25 MG ORAL TABLET 547624 MECLIZINE HCL Inactive CLONIDINE HCL 0.2 MG ORAL TABLET 1 TAB BY MOUTH EVERY 8 HOURS CLONIDINE HCL 0.2 MG ORAL TABLET 362733 CLONIDINE HCL Inactive CYCLOBENZAPRINE HCL 10 MG ORAL TABLET 1 tablet by mouth three times daily as needed for muscle spasm/pain for 10 days CYCLOBENZAPRINE HCL 10 MG ORAL TABLET 969429 CYCLOBENZAPRINE HCL Inactive VITAMIN D3 72757 UNIT ORAL CAPSULE 2 CAPS PO WEEKLY VITAMIN D3 66136 UNIT ORAL CAPSULE CHOLECALCIFEROL Inactive FIORICET 50-300-40 MG ORAL CAPSULE take 1 tab po qday prn migraines. FIORICET 50-300-40 MG ORAL CAPSULE 202114 BUTALBITAL-APAP- CAFFEINE Inactive FLONASE 50 MCG/ACT NASAL SUSPENSION 1 spray each nostril twice daily for allergies and runny nose FLONASE 50 MCG/ACT NASAL SUSPENSION 2326326 FLUTICASONE PROPIONATE Inactive LORATADINE 10 MG ORAL TABLET 1 tablet by mouth daily for congestion and allergies. LORATADINE 10 MG ORAL TABLET 863657 LORATADINE Inactive NITROSTAT 0.4 MG SUBLINGUAL TABLET SUBLINGUAL PRN NITROSTAT 0.4 MG SUBLINGUAL TABLET SUBLINGUAL 679934 NITROGLYCERIN Inactive GUAIFENESIN ER 600 MG ORAL TABLET EXTENDED RELEASE 12 HOUR 1 tab po q am 2016 GUAIFENESIN ER 600 MG ORAL TABLET EXTENDED RELEASE 12 HOUR GUAIFENESIN Inactive ZITHROMAX 250 MG ORAL TABLET 2 po today, then 1 po q days 2-5 ZITHROMAX 250 MG ORAL TABLET 316256 AZITHROMYCIN Inactive TERBINAFINE HCL 250 MG ORAL TABLET 1 tab po qday for foot infection TERBINAFINE HCL 250 MG ORAL TABLET 459957 TERBINAFINE HCL Inactive KEFLEX 500 MG ORAL CAPSULE 1 po TID x 10 days KEFLEX 500 MG ORAL CAPSULE 794655 CEPHALEXIN Inactive BACTRIM DS 800-160 MG ORAL TABLET 1 tab by mouth twice daily 2015 BACTRIM DS 800-160 MG ORAL TABLET 420238 TRIMETHOPRIM- SULFAMETHOXAZOLE Inactive PREDNISONE 20 MG ORAL TABLET take 3 tabs daily for 3 days, 2 tabs daily for 3 days, 1 tab daily for 3 days, 1/2 tab daily for 4 days PREDNISONE 20 MG ORAL TABLET 377644 PREDNISONE Inactive Advance Directives Directive Description Start [...] AUTO - Chemistry sodium, serum 142 mmol/L 737-326 6409/07/17 carbon dioxide, venous blood 28.2 mmol/L 21.0-32.0 [...] % 11.0-15.0 platelet count 185 THOUSAND/UL 10*3/mm3 748-813 7425/04/14 mean platelet volume 10.9 fL 7.5-12.5 Lab Report: LIPID PANEL, TSH/899, T4, FREE/866 - Chemistry cholesterol, serum 220 mg/dL 735-481 7039/04/14 HDL cholesterol, serum 30 mg/dL > OR=40 [...] 1.80 ng/mL 0.00-4.00 Lab Report: VITAMIN D, 25-HYDROXY/45330 - Chemistry vitamin D 25-hydroxy, serum 25 ng/mL 30-100 Office Visit: Confusion, dizziness after fall - Basic LDL target level 130 mg/dL Office Visit: Confusion, dizziness after fall - Chemistry HDL cholesterol, serum, target level 40 mg/dL triglyceride, target level 150 mg/dL cholesterol, target level 200 mg/dL Encounters Code Encounter Date Provider Facility CPT-56563 Level 3 Est. Patient 15:40:49 CDT Robbie Busby MD [facility] CPT-66103 Level 4 Est. Patient 15:18:19 CDT Robbie Busby MD [facility] CPT-41806 Level 3 Est. Patient 09:00:37 CDT Rober Rodríguez [facility] CPT-64901 Level 3 Est. Patient 16:07:10 CDT Robbie Busby MD [facility] CPT-66888 Level 4 Est. Patient 11:56:16 CDT Erin Garsia [facility] CPT-58882 Level 3 Est. Patient 17:48:02 CDT Robbie Busby MD [facility] CPT-70956 Level 4 Est. Patient 12:00:49 [place] [facility] Rober Rodríguez [facility] CPT-74631 Level 3 Est. Patient 09:16:37 CDT Robbie Busby MD [facility] CPT-11969 Level 3 Est. Patient 19:38:43 CDT Robbie Busby MD [facility] CPT-64460 Level 3 Est. Patient 11:53:38 CDT Robbie Busby MD [facility] CPT-98454 Level 4 Est. Patient 12:52:22 CDT Rober Rodríguez [facility] CPT-77928 Level 4 Est. Patient 22:55:17 CDT Robbie Busby MD [facility] CPT-37061 Level 3 Est. Patient 12:38:24 CDT Desmond Diaz DO [facility] CPT-48870 Level 4 Est. Patient 11:25:03 [place] SE[place] Robbie Busby MD [facility] CPT-28120 Level 4 Est. Patient 14:50:10 CDT Robbie Busby MD [facility] CPT-12412 Level 4 Est. Patient 23:30:43 CDT Robbie Busby MD [facility] CPT-70421 Level 4 Est. Patient 10:30:43 CDT Robbie Busby MD [facility] CPT-42978 Level 3 Est. Patient 17:08:12 CDT Alex ALVAREZ [facility] CPT-44610 Level 4 Est. Patient 17:51:38 CDT Robbie Busby MD [facility] CPT-35687 Level 4 Est. Patient 14:00:21 CDT Robbie Busby MD [facility] CPT-32930 Level 4 Est. Patient 12:46:48 CDT Robbie Busby MD [facility] CPT-30085 Level 4 Est. Patient 13:34:33 CDT Robbie Busby MD [facility] CPT-67615 Level 4 Est. Patient 16:58:28 CDT Robbie Busby MD [facility] CPT-66965 Level 3 Est. Patient 19:36:53 CDT Alex [facility] CPT-15480 Level 3 Est. Patient 12:58:15 CDT Robbie Busby MD [facility] Procedures Code Procedure Name Date Entry Date Standard Description CPT-J1071 Depo Testosterone 200mg 09:38:36 LENO SEWER CPT-89110 Abx/Therapy Injection 09:38:36 [place] SEWER CPT-J1071 Depo Testosterone 200mg 10:22:56 [place] SEWER CPT-48405 Abx/Therapy Injection 10:22:56 [place] SEWER CPT-J1071 Depo Testosterone 200mg 15:40:23 CDT CPT-02682 Abx/Therapy Injection 15:40:23 CDT CPT-J1071 Depo Testosterone 200mg 14:20:43 CDT CPT-70899 Abx/Therapy Injection 14:20:43 CDT CPT-J1071 Depo Testosterone 200mg 14:17:22 CDT CPT-38997 Abx/Therapy Injection 14:17:22 CDT CPT-J1071 Depo Testosterone 200mg 09:03:53 CDT CPT-47905 Abx/Therapy Injection 09:03:53 CDT CPT-G0439 [facility] Annual Wellness Exam 16:47:44 CDT CPT-J1071 Depo Testosterone 200mg 09:06:28 CDT CPT-23834 Abx/Therapy Injection 09:06:28 CDT CPT-J1071 Depo Testosterone 200mg 08:30:01 CDT CPT-95132 Abx/Therapy Injection 08:30:01 CDT CPT-J1071 Depo Testosterone 200mg 08:24:00 CDT CPT-99850 Abx/Therapy Injection 08:24:00 CDT CPT-51191 Venipuncture Draw Fee 14:39:06 CDT CPT-87583 Ribs unilateral 2V - XRAY USE ONLY 12:10:11 CDT CPT-71215 First Vx - Ix admin for Medicare patients 16:32:53 CDT CPT-99723 Boostrix Intramuscular Suspension 5-2.5-18.5 16:32:53 CDT CPT-70182 TB Skin Test 11:42:28 CDT CPT-13531 Tdap 7yrs or > 11:42:28 CDT CPT-J0696 Rocephin 1000 mg (Ceftriaxone) 17:43:43 L[place] SEWER CPT-J1040 Depo Medrol 80 mg (Methyl Prednisolone Acetate) 17:43: 43 [place] SEWER CPT-J1100 Decadron 8mg (Dexamethasone) 17:43:42 L[place] SEWER CPT-07913 Abx/Therapy Injection 17:43:42 LENO SEWER CPT-14202 Abx/Therapy Injection 17:43:42 LENO SEWER CPT-J1040 Depo Medrol 80 mg (Methyl Prednisolone Acetate) 09:43: 34 LENO SEWER CPT-J1100 Decadron 8mg (Dexamethasone) 09:43:34 LENO SEWER CPT-J0696 Rocephin 1gm Inj Solr 09:43:34 LENO SEWER CPT-12258 Wound Culture - LAB USE ONLY 14:00:21 CDT CPT-I/D I/D Abscess 09:16:37 CDT CPT-94328 Venipuncture Draw Fee 15:20:23 CDT CPT-01342 Microalbumin - LAB USE ONLY 16:02:19 CDT CPT-58479 CBC - LAB USE ONLY 16:02:19 CDT CPT-22953 Venipuncture Draw Fee 16:02:19 CDT CPT-G0438 Initial Annual Wellness Exam 08:10:28 CDT CPT-70292 Venipuncture Draw Fee 13:07:17 CDT CPT-G0008 Administration of Influenza Virus Vaccine 16:09:59 CDT CPT-45578 Fluzone Quadrivalent Intramuscular Suspension 0.5 ML 16: 09:59 CDT CPT-43709 Spec Collection and Handling Fee 15:05:50 CDT
--- OUTSIDE RECORDS SUMMARY | 2018-04-18 11:35 | XMS REPORT | Clinical Summary ---
Author Author Admin, AKUA Organization [facility] Address Unknown Phone Unavailable Allergies, Adverse [...] Generic Name NDC Status Provider Patient Instruction HYDRALAZINE HCL 50 MG ORAL TABS TWO BY MOUTH THREE TIMES DAILY HYDRALAZINE HCL 93883624918 Active Gali Raida Active MECLIZINE HCL 25 MG TAB one 4 times a day as needed for dizziness MECLIZINE HCL 17103540348 Active Robbie Busby MD Active TRILEPTAL 150 MG ORAL TABS 1 TAB PO Q HS OXCARBAZEPINE 94674148693 Active Robbie Busby MD Active TEMAZEPAM 15 MG ORAL CAPS 1 TAB PO Q HS TEMAZEPAM 45587504114 Active Robbie Busby MD Active ALPRAZOLAM 2 MG ORAL TABS 1 TAB PO BID ALPRAZOLAM 65802853866 Active Robbie Busby MD Active FENOFIBRATE 145 MG TABS Take one by mouth daily FENOFIBRATE 49807222750 No Longer Active Robbie Busby MD Active LAMISIL 125 MG ORAL PACK 1 TAB PO DAILY TERBINAFINE HCL 88404941183 Active Robbie Busby MD Active SPIRONOLACTONE 50 MG TABS 1 tablet by mouth twice a day SPIRONOLACTONE 59212979047 No Longer Active Robbie Busby MD Active HYDRALAZINE HCL 25 MG TABS 1 tablet by mouth tid for hypertension HYDRALAZINE HCL 00634270432 No Longer Active Robbie Busby MD Active VIIBRYD 40 MG TABS take 1 tab po qday for depression. VILAZODONE HCL 69026842856 No Longer Active Robbie Busby MD Active TERBINAFINE HCL 250 MG TABS 1 tab po qday for foot infection 2014 TERBINAFINE HCL 56691816345 No Longer Active Robbie Busby MD Active GABAPENTIN 300 MG CAPS 1 po q hs for nerve pain GABAPENTIN 78074524696 Active Robbie Busby MD Active FLONASE 50 MCG/ACT SUSP 1 spray each nostril twice daily for allergies and runny nose FLUTICASONE PROPIONATE 51902830417 Active Robbie Busby MD Active CHERATUSSIN AC 100-10 MG/5ML ORAL SOLN 7.5 mL PO q 4-6 hrs PRN cough GUAIFENESIN-CODEINE 11376132305 No Longer Active Robbie Busby MD Active AZITHROMYCIN 250 MG ORAL TABS 2 tablets PO today---then, 1 tablet PO daily x 4 more days (and 1 optional refill) AZITHROMYCIN 46022521269 No Longer Active Robbie Busby MD Active CLONIDINE HCL 0.2 MG ORAL TABS 1 TAB BY MOUTH EVERY 8 HOURS CLONIDINE HCL 02404015710 Active Robbie Busby MD Active HYDROCHLOROTHIAZIDE TABS Take one by mouth daily HYDROCHLOROTHIAZIDE TABS 47564439851 Active Alex ALVAREZ Active NORVASC 10 MG TAB 1 tablet by mouth daily AMLODIPINE BESYLATE 37980807918 No Longer Active Alex ALVAREZ Active PROTONIX 40 MG SOLR 1 po qday for acid reflux PANTOPRAZOLE SODIUM 79943738278 Active Robbie Busby MD Active IMDUR 60 MG TAB CR take 1 tab po qday for blood pressure ISOSORBIDE MONONITRATE Active Robbie Busby MD Active ISOSORBIDE DINITRATE 30 MG TABS Take one by mouth daily ISOSORBIDE DINITRATE 70940328903 No Longer Active Robbie Busby MD Active VIIBRYD 40 MG TABS 1 TA B PO DAILY VILAZODONE HCL 20520906980 Active Robbie Busby MD Active LORATADINE 10 MG TABS 1 tablet by mouth daily for congestion and allergies. LORATADINE 97329443413 Active Robbie Busby MD Active ZITHROMAX 250 MG TAB 2 po today, then 1 po q days 2-5 AZITHROMYCIN 56341283119 No Longer Active Robbie Busby MD Active HYDROCODONE-ACETAMINOPHEN 5-325 MG TABS 1 tab by mouth BID prn back pain 2013 HYDROCODONE-ACETAMINOPHEN 88337430352 Active Robbie Busby MD Active [id number] 0.3 MG/24HR PTWK apply 2 patches q week for HTN CLONIDINE HCL 97017166530 Active Robbie Busby MD Active NITROSTAT 0.4 MG SUBL PRN NITROGLYCERIN 11057307638 Active Robbie Busby MD Active DOXAZOSIN MESYLATE 4 MG TABS Take one by mouth daily DOXAZOSIN MESYLATE 52971112767 Active Robbie Busby MD Active TOPROL XL 200 MG [id number] Take one by mouth daily METOPROLOL SUCCINATE 22849246056 Active Robbie Busby MD Active VENLAFAXINE HCL ER 150 MG [id number] Take one by mouth daily VENLAFAXINE HCL 68981701242 Active Robbie Busby MD Active LIPITOR 40 MG TABS Take one by mouth daily ATORVASTATIN CALCIUM 84044096736 Active Robbie Busby MD Active ISOSORBIDE DINITRATE 30 MG TABS Take one by mouth daily ISOSORBIDE DINITRATE 30 MG TABS 542018 ISOSORBIDE DINITRATE Inactive NORVASC 10 MG TAB 1 tablet by mouth daily NORVASC 10 MG TAB 063994 AMLODIPINE BESYLATE Inactive AZITHROMYCIN 250 MG ORAL TABS 2 tablets PO today---then, 1 tablet PO daily x 4 more days (and 1 optional refill) AZITHROMYCIN 250 MG ORAL TABS 2593340 AZITHROMYCIN Inactive CHERATUSSIN AC 100-10 MG/5ML ORAL SOLN 7.5 mL PO q 4-6 hrs PRN cough CHERATUSSIN AC 100-10 MG/5ML ORAL SOLN 121965 GUAIFENESIN- CODEINE Inactive VIIBRYD 40 MG TABS take 1 tab po qday for depression. VIIBRYD 40 MG TABS VILAZODONE HCL Inactive HYDRALAZINE HCL 25 MG TABS 1 tablet by mouth tid for hypertension HYDRALAZINE HCL 25 MG TABS 476485 HYDRALAZINE HCL Inactive SPIRONOLACTONE 50 MG TABS 1 tablet by mouth twice a day SPIRONOLACTONE 50 MG TABS 168225 SPIRONOLACTONE Inactive FENOFIBRATE 145 MG TABS Take one by mouth daily FENOFIBRATE 145 MG TABS 618644 FENOFIBRATE Inactive ZITHROMAX 250 MG TAB 2 po today, then 1 po q days 2-5 ZITHROMAX 250 MG TAB 5843544 AZITHROMYCIN Inactive TERBINAFINE HCL 250 MG TABS 1 tab po qday for foot infection 2014 TERBINAFINE HCL 250 MG TABS 383813 TERBINAFINE HCL Inactive Vital Signs Date Name [...] Panel - Chemistry sodium, serum 141 mmol/L 012-811 6977/12/05 potassium, serum 4.0 mmol/L 3.5-5.2 chloride, serum [...] count 253 10^3/MM^3 10*3/mm3 142-424 Lab Report: Creatinine - Chemistry creatinine, serum 1.40 mg/dL 0.60-1.30 Encounters Code Encounter Date Provider Facility CPT-75184 Level 4 Est. Patient 14:50:10 CDT Robbie Busby MD [facility] CPT-62418 Level 4 Est. Patient 23:30:43 CDT Robbie Busby MD [facility] CPT-22024 Level 4 Est. Patient 10:30:43 CDT Robbie Busby MD [facility] CPT-81666 Level 3 Est. Patient 17:08:12 CDT Alex ALVAREZ [facility] CPT-19190 Level 4 Est. Patient 17:51:38 CDT Robbie Busby MD [facility] CPT-75125 Level 4 Est. Patient 14:00:21 CDT Robbie Busby MD [facility] CPT-01934 Level 4 Est. Patient 12:46:48 CDT Robbie Busby MD [facility] CPT-40320 Level 4 Est. Patient 13:34:33 CDT Robbie Busby MD [facility] CPT-56432 Level 4 Est. Patient 16:58:28 CDT Robbie Busby MD [facility] CPT-10038 Level 3 Est. Patient 19:36:[address] [facility] CPT-51507 Level 3 Est. Patient 12:58:15 CDT Robbie Busby MD [facility] Procedures Code Procedure Name Date Entry Date Standard Description CPT-G0008 Administration of Influenza Virus Vaccine 16:09:59 CDT CPT-98472 Fluzone Quadrivalent Intramuscular Suspension 0.5 ML 16: 09:59 CDT CPT-61184 Spec Collection and Handling Fee 15:05:50 CDT
--- OUTSIDE RECORDS SUMMARY | 2018-04-18 11:35 | XMS REPORT | Clinical Summary ---
Author Author Admin, AKUA Organization [facility] Address Unknown Phone Unavailable Allergies, Adverse Reactions, [...] Kidney disease, chronic, stage III 585.3 Active aC VÁZQUEZA Chronic kidney disease, Stage III (moderate) [...] unspecified sites URI 465.9 Active Rober Rodríguez [employer] Acute upper respiratory infections of unspecified site [...] Status Provider Patient Instruction GUAIFENESIN 600 MG [id number] 1 tab po q am GUAIFENESIN 76115102717 No Longer Active Robbie Busby MD Active DIVALPROEX SODIUM ER 500 MG ORAL TABLET EXTENDED RELEASE 24 HOUR Once daily DIVALPROEX SODIUM 56232013237 Active Robbie Busby MD Active DEPO-TESTOSTERONE 200 MG/ML IM SOLN 1 IM Injections every 2 weeks for low testosterone TESTOSTERONE CYPIONATE 94595348075 Active Zulema Blank LPN Active CYCLOBENZAPRINE HCL 10 MG ORAL TABS 1 po TID PRN muscle spasm/pain for 10 days CYCLOBENZAPRINE HCL 27079413363 Active JONATHAN Moncada Active FLUTICASONE PROPIONATE 50 MCG/ACT SUSP 2 sprays per nostril bid for 1 week, then 1 spray bid FLUTICASONE PROPIONATE 11879443291 Active Jillina Franeha [employer] Active HYDRALAZINE HCL 25 MG ORAL TABS Take 1 tab BID. HYDRALAZINE HCL 84815079088 Active Jillina Anne [employer] Active VITAMIN D3 42657 UNIT ORAL TABS 2 po weekly CHOLECALCIFEROL 43501623814 Active Robbie Busby MD Active OXYCODONE HCL ER 10 MG ORAL T12A 1 tab po 3 times qd. OXYCODONE HCL 76961285809 Active Robbie Busby MD Active NITROSTAT 0.4 MG SUBL PRN NITROGLYCERIN 68596975384 No Longer Active Robbie Busby MD Active LORATADINE 10 MG TABS 1 tablet by mouth daily for congestion and allergies. LORATADINE 61056399390 No Longer Active Robbie Busby MD Active FLONASE 50 MCG/ACT SUSP 1 spray each nostril twice daily for allergies and runny nose FLUTICASONE PROPIONATE 59662390028 No Longer Active Robbie Busby MD Active FIORICET 50-300-40 MG ORAL CAPS take 1 tab po qday prn migraines. [id number]-ADZOXEOM 41532522476 No Longer Active Robbie Busby MD Active VITAMIN D3 41360 UNIT CAPS 2 CAPS PO WEEKLY CHOLECALCIFEROL 64876573761 No Longer Active Robbie Busby MD Active CYCLOBENZAPRINE HCL 10 MG TABS 1 tablet by mouth three times daily as needed for muscle spasm/pain for 10 days CYCLOBENZAPRINE HCL 59515727138 No Longer Active Robbie Busby MD Active PREDNISONE 20 MG TAB take 3 tabs daily for 3 days, 2 tabs daily for 3 days, 1 tab daily for 3 days, 1/2 tab daily for 4 days PREDNISONE 79699356339 No Longer Active Erin Garsia APRN Active CLONIDINE HCL 0.2 MG ORAL TABS 1 TAB BY MOUTH EVERY 8 HOURS 12/29 CLONIDINE HCL 28589775596 No Longer Active Erin Garsia APRN Active MECLIZINE HCL 25 MG TAB one 4 times a day as needed for dizziness MECLIZINE HCL 29518716997 No Longer Active Erin Garsia APRN Active SPIRONOLACTONE 25 MG TAB 4 tablets by mouth daily SPIRONOLACTONE 21925395738 No Longer Active Erin Garsia APRN Active LEVAQUIN 500 MG TAB 1 tablet by mouth daily for 7 days LEVOFLOXACIN 06819015949 No Longer Active Erin Garsia APRN Active BACTRIM DS 800-160 MG TAB 1 tab by mouth twice daily TRIMETHOPRIM-SULFAMETHOXAZOLE 86624961408 No Longer Active Robbie Busby MD Active HYDRALAZINE HCL 50 MG ORAL TABS TWO BY MOUTH THREE TIMES DAILY HYDRALAZINE HCL 40426202115 No Longer Active Jillld Rodríguez APRN Active HYDROCODONE-ACETAMINOPHEN 5-325 MG TABS 1 tab by mouth BID prn back pain 2013 HYDROCODONE-ACETAMINOPHEN 68374202592 No Longer Active Jillina Zulemal [employer] Active HYDROCHLOROTHIAZIDE TABS Take one by mouth daily HYDROCHLOROTHIAZIDE TABS 46958705060 No Longer Active Jillina Frakierstenl [employer] Active LAMISIL 125 MG ORAL PACK 1 TAB PO DAILY TERBINAFINE HCL 44550078421 No Longer Active Jillina Frakierstenl [employer] Active TRILEPTAL 150 MG ORAL TABS 1 TAB PO Q HS OXCARBAZEPINE 06692943174 No Longer Active Jillina Frakierstenl [employer] Active BETADINE 10 % EXT SOLN 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 POVIDONE-IODINE 48427868258 No Longer Active Rober Rodríguez APRN Active NYSTATIN 575684 UNIT/ML M/T SUSP 5mL po QID x 10 days NYSTATIN 85956865547 No Longer Active Erin Garsia APRN Active PREDNISONE 20 MG TAB 1 tablet twice daily for 2 days, then 1 tablet once daily for 2 days PREDNISONE 40057288588 No Longer Active Robbie Busby MD Active CEFDINIR 300 MG ORAL CAPS Take 1 cap po bid x 10 days CEFDINIR 98625521615 No Longer Active Robbie Busby MD Active AMLODIPINE BESYLATE 10 MG TABS 1 tablet by mouth daily AMLODIPINE BESYLATE 09931505007 Active Robbie Busby MD Active CARVEDILOL 25 MG TABS 1 & 1/2 TAB po BID CARVEDILOL 21417695401 Active Robbie Busby MD Active NEXIUM 40 MG CPDR 1 cap by mouth daily ESOMEPRAZOLE MAGNESIUM 99230805762 Active Robbie Busby MD Active PROTONIX 40 MG SOLR 1 po qday for acid reflux PANTOPRAZOLE SODIUM 77966944672 No Longer Active Gali Raida Active KEFLEX 500 MG CAP 1 po TID x 10 days CEPHALEXIN 52878123303 No Longer Active Robbie Busby MD Active TOPIRAMATE 50 MG ORAL TABS take 1 tab po BID for migraines. TOPIRAMATE 23431298477 Active Robbie Busby MD Active TEMAZEPAM 15 MG ORAL CAPS 1 TAB PO Q HS TEMAZEPAM 80279629170 Active Robbie Busby MD Active ALPRAZOLAM 2 MG ORAL TABS 1 TAB PO BID ALPRAZOLAM 30468129309 Active Robbie Busby MD Active FENOFIBRATE 145 MG TABS Take one by mouth daily FENOFIBRATE 80813842597 No Longer Active Robbie Busby MD Active SPIRONOLACTONE 50 MG TABS 1 tablet by mouth twice a day SPIRONOLACTONE 15846988082 No Longer Active Robbie Busby MD Active HYDRALAZINE HCL 25 MG TABS 1 tablet by mouth tid for hypertension HYDRALAZINE HCL 81806879158 No Longer Active Robbie Busby MD Active VIIBRYD 40 MG TABS take 1 tab po qday for depression. VILAZODONE HCL 27161435051 No Longer Active Robbie Busby MD Active TERBINAFINE HCL 250 MG TABS 1 tab po qday for foot infection 2014 TERBINAFINE HCL 12023848829 No Longer Active Robbie Busby MD Active GABAPENTIN 300 MG CAPS 1 po q hs for nerve pain GABAPENTIN 75652466798 Active Robbie Busby MD Active CHERATUSSIN AC 100-10 MG/5ML ORAL SOLN 7.5 mL PO q 4-6 hrs PRN cough GUAIFENESIN-CODEINE 61636725221 No Longer Active Robbie Busby MD Active AZITHROMYCIN 250 MG ORAL TABS 2 tablets PO today---then, 1 tablet PO daily x 4 more days (and 1 optional refill) AZITHROMYCIN 87648166457 No Longer Active Robbie Busby MD Active NORVASC 10 MG TAB 1 tablet by mouth daily AMLODIPINE BESYLATE 65774041899 No Longer Active Alex ALVAREZ Active IMDUR 60 MG TAB CR take 1 tab po qday for blood pressure ISOSORBIDE MONONITRATE Active Robbie Busby MD Active ISOSORBIDE DINITRATE 30 MG TABS Take one by mouth daily ISOSORBIDE DINITRATE 38757249583 No Longer Active Robbie Busby MD Active VIIBRYD 40 MG TABS 1 TA B PO DAILY VILAZODONE HCL 59914844331 Active Robbie Busby MD Active ZITHROMAX 250 MG TAB 2 po today, then 1 po q days 2-5 AZITHROMYCIN 81684707446 No Longer Active Robbie Busby MD Active [id number] 0.3 MG/24HR PTWK apply 2 patches q week for HTN CLONIDINE HCL 12339696384 Active Robbie Busby MD Active DOXAZOSIN MESYLATE 4 MG TABS Take one by mouth daily DOXAZOSIN MESYLATE 04998350748 Active Robbie Busby MD Active TOPROL XL 200 MG [id number] Take one by mouth daily METOPROLOL SUCCINATE 27587517127 Active Robbie Busby MD Active VENLAFAXINE HCL ER 150 MG [id number] Take one by mouth daily VENLAFAXINE HCL 45533769672 Active oRbbie Busby MD Active LIPITOR 40 MG TABS Take one by mouth daily ATORVASTATIN CALCIUM 63070079701 Active Robbie Busby MD Active ISOSORBIDE DINITRATE 30 MG TABS Take one by mouth daily ISOSORBIDE DINITRATE 30 MG TABS 904804 ISOSORBIDE DINITRATE Inactive NORVASC 10 MG TAB 1 tablet by mouth daily NORVASC 10 MG TAB 503624 AMLODIPINE BESYLATE Inactive AZITHROMYCIN 250 MG ORAL TABS 2 tablets PO today---then, 1 tablet PO daily x 4 more days (and 1 optional refill) AZITHROMYCIN 250 MG ORAL TABS 811850 AZITHROMYCIN Inactive CHERATUSSIN AC 100-10 MG/5ML ORAL SOLN 7.5 mL PO q 4-6 hrs PRN cough CHERATUSSIN AC 100-10 MG/5ML ORAL SOLN 246680 GUAIFENESIN- CODEINE Inactive VIIBRYD 40 MG TABS take 1 tab po qday for depression. VIIBRYD 40 MG TABS VILAZODONE HCL Inactive HYDRALAZINE HCL 25 MG TABS 1 tablet by mouth tid for hypertension HYDRALAZINE HCL 25 MG TABS 648429 HYDRALAZINE HCL Inactive SPIRONOLACTONE 50 MG TABS 1 tablet by mouth twice a day SPIRONOLACTONE 50 MG TABS 310337 SPIRONOLACTONE Inactive FENOFIBRATE 145 MG TABS Take one by mouth daily FENOFIBRATE 145 MG TABS 595605 FENOFIBRATE Inactive PROTONIX 40 MG SOLR 1 po qday for acid reflux PROTONIX 40 MG SOLR 480413 PANTOPRAZOLE SODIUM Inactive CEFDINIR 300 MG ORAL CAPS Take 1 cap po bid x 10 days CEFDINIR 300 MG ORAL CAPS 824849 CEFDINIR Inactive PREDNISONE 20 MG TAB 1 tablet twice daily for 2 days, then 1 tablet once daily for 2 days PREDNISONE 20 MG TAB 050911 PREDNISONE Inactive NYSTATIN 408147 UNIT/ML M/T SUSP 5mL po QID x 10 days NYSTATIN 822472 UNIT/ML M/T SUSP 182286 NYSTATIN Inactive BETADINE 10 % EXT SOLN 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 BETADINE 10 % EXT SOLN 6451639 POVIDONE-IODINE Inactive TRILEPTAL 150 MG ORAL TABS 1 TAB PO Q HS TRILEPTAL 150 MG ORAL TABS 206320 OXCARBAZEPINE Inactive LAMISIL 125 MG ORAL PACK 1 TAB PO DAILY LAMISIL 125 MG ORAL PACK TERBINAFINE HCL Inactive HYDROCHLOROTHIAZIDE TABS Take one by mouth daily HYDROCHLOROTHIAZIDE TABS HYDROCHLOROTHIAZIDE TABS Inactive HYDROCODONE-ACETAMINOPHEN 5-325 MG TABS 1 tab by mouth BID prn back pain 2013 HYDROCODONE-ACETAMINOPHEN 5-325 MG TABS 420483 HYDROCODONE -ACETAMINOPHEN Inactive HYDRALAZINE HCL 50 MG ORAL TABS TWO BY MOUTH THREE TIMES DAILY HYDRALAZINE HCL 50 MG ORAL TABS 091927 HYDRALAZINE HCL Inactive LEVAQUIN 500 MG TAB 1 tablet by mouth daily for 7 days LEVAQUIN 500 MG TAB 159713 LEVOFLOXACIN Inactive SPIRONOLACTONE 25 MG TAB 4 tablets by mouth daily SPIRONOLACTONE 25 MG TAB 279682 SPIRONOLACTONE Inactive MECLIZINE HCL 25 MG TAB one 4 times a day as needed for dizziness MECLIZINE HCL 25 MG TAB 231987 MECLIZINE HCL Inactive CLONIDINE HCL 0.2 MG ORAL TABS 1 TAB BY MOUTH EVERY 8 HOURS 12/29 CLONIDINE HCL 0.2 MG ORAL TABS 103371 CLONIDINE HCL Inactive CYCLOBENZAPRINE HCL 10 MG TABS 1 tablet by mouth three times daily as needed for muscle spasm/pain for 10 days CYCLOBENZAPRINE HCL 10 MG TABS 856115 CYCLOBENZAPRINE HCL Inactive VITAMIN D3 90959 UNIT CAPS 2 CAPS PO WEEKLY VITAMIN D3 44862 UNIT CAPS CHOLECALCIFEROL Inactive FIORICET 50-300-40 MG ORAL CAPS take 1 tab po qday prn migraines. FIORICET 50-300-40 MG ORAL CAPS 028671 [id number] Inactive FLONASE 50 MCG/ACT SUSP 1 spray each nostril twice daily for allergies and runny nose FLONASE 50 MCG/ACT SUSP 5928632 FLUTICASONE PROPIONATE Inactive LORATADINE 10 MG TABS 1 tablet by mouth daily for congestion and allergies. LORATADINE 10 MG TABS 217373 LORATADINE Inactive NITROSTAT 0.4 MG SUBL PRN NITROSTAT 0.4 MG SUBL 567362 NITROGLYCERIN Inactive GUAIFENESIN 600 MG [id number] 1 tab po q am GUAIFENESIN 600 MG [id number] GUAIFENESIN Inactive ZITHROMAX 250 MG TAB 2 po today, then 1 po q days 2-5 ZITHROMAX 250 MG TAB 548015 AZITHROMYCIN Inactive TERBINAFINE HCL 250 MG TABS 1 tab po qday for foot infection 2014 TERBINAFINE HCL 250 MG TABS 306806 TERBINAFINE HCL Inactive KEFLEX 500 MG CAP 1 po TID x 10 days KEFLEX 500 MG CAP 226640 CEPHALEXIN Inactive BACTRIM DS 800-160 MG TAB 1 tab by mouth twice daily BACTRIM DS 800-160 MG TAB 502648 TRIMETHOPRIM-SULFAMETHOXAZOLE Inactive PREDNISONE 20 MG TAB take 3 tabs daily for 3 days, 2 tabs daily for 3 days, 1 tab daily for 3 days, 1/2 tab daily for 4 days PREDNISONE 20 MG TAB 228343 PREDNISONE Inactive Advance Directives Directive Description Start [...] AUTO - Chemistry sodium, serum 142 mmol/L 575-876 3774/07/17 carbon dioxide, venous blood 28.2 mmol/L 21.0-32.0 [...] % 11.0-15.0 platelet count 185 THOUSAND/UL 10*3/mm3 721-343 6452/04/14 mean platelet volume 10.9 fL 7.5-12.5 Lab Report: LIPID PANEL, TSH/899, T4, FREE/866 - Chemistry cholesterol, serum 220 mg/dL 941-689 4522/04/14 HDL cholesterol, serum 30 mg/dL > OR=40 [...] 1.80 ng/mL 0.00-4.00 Lab Report: VITAMIN D, 25-HYDROXY/34740 - Chemistry vitamin D 25-hydroxy, serum 25 ng/mL 30-100 Office Visit: Confusion, dizziness after fall - Basic LDL target level 130 mg/dL Office Visit: Confusion, dizziness after fall - Chemistry HDL cholesterol, serum, target level 40 mg/dL triglyceride, target level 150 mg/dL cholesterol, target level 200 mg/dL Encounters Code Encounter Date Provider Facility CPT-49060 Level 3 Est. Patient 15:40:49 CDT Robbie Busby MD [facility] CPT-17182 Level 4 Est. Patient 15:18:19 CDT Robbie Busby MD [facility] CPT-69598 Level 3 Est. Patient 09:00:37 CDT Rober Rodríguez [facility] CPT-85671 Level 3 Est. Patient 16:07:10 CDT Robbie Busby MD [facility] CPT-89665 Level 4 Est. Patient 11:56:16 CDT Erin Garsia [facility] CPT-76084 Level 3 Est. Patient 17:48:02 CDT Robbie Busby MD [facility] CPT-71017 Level 4 Est. Patient 12:00:49 NOTE KEEPER Rober Rodríguez [facility] CPT-04561 Level 3 Est. Patient 09:16:37 CDT Robbie Busby MD [facility] CPT-71113 Level 3 Est. Patient 19:38:43 CDT Robbie Busby MD [facility] CPT-57736 Level 3 Est. Patient 11:53:38 CDT Robbie Busby MD [facility] CPT-18836 Level 4 Est. Patient 12:52:22 CDT Rober Rodríguez [facility] CPT-06499 Level 4 Est. Patient 22:55:17 CDT Robbie Busby MD [facility] CPT-01460 Level 3 Est. Patient 12:38:24 CDT Desmond Diaz DO [facility] CPT-74890 Level 4 Est. Patient 11:25:03 NOTE KEEPER Robbie Busby MD [facility] CPT-11349 Level 4 Est. Patient 14:50:10 CDT Robbie Busby MD [facility] CPT-25166 Level 4 Est. Patient 23:30:43 CDT Robbie Busby MD [facility] CPT-36423 Level 4 Est. Patient 10:30:43 CDT Robbie Busby MD [facility] CPT-35717 Level 3 Est. Patient 17:08:12 CDT Alex Shaw [facility] CPT-24770 Level 4 Est. Patient 17:51:38 CDT Robbie Busby MD [facility] CPT-81168 Level 4 Est. Patient 14:00:21 CDT Robbie Busby MD [facility] CPT-29511 Level 4 Est. Patient 12:46:48 CDT Robbie Busby MD [facility] CPT-92429 Level 4 Est. Patient 13:34:33 CDT Robbie Busby MD [facility] CPT-46851 Level 4 Est. Patient 16:58:28 CDT Robbie Busby MD [facility] CPT-08343 Level 3 Est. Patient 19:36:53 CDT Alex Shaw [facility] CPT-61032 Level 3 Est. Patient 12:58:15 CDT Robbie Busby MD [facility] Procedures Code Procedure Name Date Entry Date Standard Description CPT-J1071 Depo Testosterone 200mg 14:20:43 CDT CPT-53786 Abx/Therapy Injection 14:20:43 CDT CPT-J1071 Depo Testosterone 200mg 14:17:22 CDT CPT-46832 Abx/Therapy Injection 14:17:22 CDT CPT-J1071 Depo Testosterone 200mg 09:03:53 CDT CPT-50558 Abx/Therapy Injection 09:03:53 CDT CPT-G0439 [facility] Annual Wellness Exam 16:47:44 CDT CPT-J1071 Depo Testosterone 200mg 09:06:28 CDT CPT-87583 Abx/Therapy Injection 09:06:28 CDT CPT-J1071 Depo Testosterone 200mg 08:30:01 CDT CPT-07051 Abx/Therapy Injection 08:30:01 CDT CPT-J1071 Depo Testosterone 200mg 08:24:00 CDT CPT-94015 Abx/Therapy Injection 08:24:00 CDT CPT-16685 Venipuncture Draw Fee 14:39:06 CDT CPT-10613 Ribs unilateral 2V - XRAY USE ONLY 12:10:11 CDT CPT-60092 First Vx - Ix admin for Medicare patients 16:32:53 CDT CPT-08921 Boostrix Intramuscular Suspension 5-2.5-18.5 16:32:53 CDT CPT-47155 TB Skin Test 11:42:28 CDT CPT-10668 Tdap 7yrs or > 11:42:28 CDT CPT-J0696 Rocephin 1000 mg (Ceftriaxone) 17:43:43 NOTE KEEPER CPT-J1040 Depo Medrol 80 mg (Methyl Prednisolone Acetate) 17:43: 43 NOTE KEEPER CPT-J1100 Decadron 8mg (Dexamethasone) 17:43:42 NOTE KEEPER CPT-15256 Abx/Therapy Injection 17:43:42 NOTE KEEPER CPT-39554 Abx/Therapy Injection 17:43:42 NOTE KEEPER CPT-J1040 Depo Medrol 80 mg (Methyl Prednisolone Acetate) 09:43: 34 NOTE KEEPER CPT-J1100 Decadron 8mg (Dexamethasone) 09:43:34 NOTE KEEPER CPT-J0696 Rocephin 1gm Inj Solr 09:43:34 NOTE KEEPER CPT-78745 Wound Culture - LAB USE ONLY 14:00:21 CDT CPT-I/D I/D Abscess 09:16:37 CDT CPT-38952 Venipuncture Draw Fee 15:20:23 CDT CPT-02908 Microalbumin - LAB USE ONLY 16:02:19 CDT CPT-85233 CBC - LAB USE ONLY 16:02:19 CDT CPT-87395 Venipuncture Draw Fee 16:02:19 CDT CPT-G0438 Initial Annual Wellness Exam 08:10:28 CDT CPT-73255 Venipuncture Draw Fee 13:07:17 CDT CPT-G0008 Administration of Influenza Virus Vaccine 16:09:59 CDT CPT-86572 Fluzone Quadrivalent Intramuscular Suspension 0.5 ML 16: 09:59 CDT CPT-01311 Spec Collection and Handling Fee 15:05:50 CDT
--- OUTSIDE RECORDS SUMMARY | 2018-04-18 11:36 | XMS REPORT | Clinical Summary ---
Author Author Admin, [facility] Organization [facility] Address Unknown Phone Unavailable Allergies, [...] 2 weeks for low testosterone TESTOSTERONE CYPIONATE 86528150458 Active Zulema Blank LPN Active CYCLOBENZAPRINE HCL 10 MG ORAL TABS 1 po TID PRN muscle spasm/pain for 10 days CYCLOBENZAPRINE HCL 30622208150 Active JONATHAN Moncada Active GUAIFENESIN 600 MG [id number] 1 tab po q am GUAIFENESIN 67792689322 Active Rober Rodríguez HOSIERY BAGGER Active FLUTICASONE PROPIONATE 50 MCG/ACT SUSP 2 sprays per nostril bid for 1 week, then 1 spray bid FLUTICASONE PROPIONATE 01882046621 Active Jishantel Rodríguez APRN Active HYDRALAZINE HCL 25 MG ORAL TABS Take 1 tab BID. HYDRALAZINE HCL 90701200164 Active Rober Rodríguez APRN Active VITAMIN D3 35567 UNIT ORAL TABS 2 po weekly CHOLECALCIFEROL 36516288842 Active JONATHAN Moncada Active OXYCODONE HCL ER 10 MG ORAL T12A 1 tab po 3 times qd. OXYCODONE HCL 81849557790 Active Robbie Busby MD Active NITROSTAT 0.4 MG SUBL PRN NITROGLYCERIN 59142590326 No Longer Active Robbie Busby MD Active LORATADINE 10 MG TABS 1 tablet by mouth daily for congestion and allergies. LORATADINE 07020613171 No Longer Active Robbie Busby MD Active FLONASE 50 MCG/ACT SUSP 1 spray each nostril twice daily for allergies and runny nose FLUTICASONE PROPIONATE 63749734048 No Longer Active Robbie Busby MD Active FIORICET 50-300-40 MG ORAL CAPS take 1 tab po qday prn migraines. [id number] 16884821294 No Longer Active Robbie Busby MD Active VITAMIN D3 64590 UNIT CAPS 2 CAPS PO WEEKLY CHOLECALCIFEROL 98813959633 No Longer Active Robbie Busby MD Active CYCLOBENZAPRINE HCL 10 MG TABS 1 tablet by mouth three times daily as needed for muscle spasm/pain for 10 days CYCLOBENZAPRINE HCL 20197218274 No Longer Active Robbie Busby MD Active PREDNISONE 20 MG TAB take 3 tabs daily for 3 days, 2 tabs daily for 3 days, 1 tab daily for 3 days, 1/2 tab daily for 4 days PREDNISONE 82011197042 No Longer Active Erin Garsia APRN Active CLONIDINE HCL 0.2 MG ORAL TABS 1 TAB BY MOUTH EVERY 8 HOURS 12/29 CLONIDINE HCL 01492979560 No Longer Active Erin Garsia APRN Active MECLIZINE HCL 25 MG TAB one 4 times a day as needed for dizziness MECLIZINE HCL 14310479101 No Longer Active Erin Garsia APRN Active SPIRONOLACTONE 25 MG TAB 4 tablets by mouth daily SPIRONOLACTONE 22970125536 No Longer Active Erin Garsia APRN Active LEVAQUIN 500 MG TAB 1 tablet by mouth daily for 7 days LEVOFLOXACIN 87093180688 No Longer Active Erin Garsia APRN Active BACTRIM DS 800-160 MG TAB 1 tab by mouth twice daily TRIMETHOPRIM-SULFAMETHOXAZOLE 89981159190 No Longer Active Robbie Busby MD Active HYDRALAZINE HCL 50 MG ORAL TABS TWO BY MOUTH THREE TIMES DAILY HYDRALAZINE HCL 05745665608 No Longer Active Jillina Frakierstenl HOSIERY BAGGER Active HYDROCODONE-ACETAMINOPHEN 5-325 MG TABS 1 tab by mouth BID prn back pain 2013 HYDROCODONE-ACETAMINOPHEN 33866925920 No Longer Active Jillina Frazell HOSIERY BAGGER Active HYDROCHLOROTHIAZIDE TABS Take one by mouth daily HYDROCHLOROTHIAZIDE TABS 30684098074 No Longer Active Jillina Frazell HOSIERY BAGGER Active LAMISIL 125 MG ORAL PACK 1 TAB PO DAILY TERBINAFINE HCL 37520807358 No Longer Active Jillina Frazell HOSIERY BAGGER Active TRILEPTAL 150 MG ORAL TABS 1 TAB PO Q HS OXCARBAZEPINE 10664231812 No Longer Active Jillina Frazell HOSIERY BAGGER Active BETADINE 10 % EXT SOLN 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 POVIDONE-IODINE 37231436664 No Longer Active Jillina Frazell HOSIERY BAGGER Active NYSTATIN 082147 UNIT/ML M/T SUSP 5mL po QID x 10 days NYSTATIN 29361059799 No Longer Active Erin Garsia APRN Active PREDNISONE 20 MG TAB 1 tablet twice daily for 2 days, then 1 tablet once daily for 2 days PREDNISONE 55242439291 No Longer Active Robbie Busby MD Active CEFDINIR 300 MG ORAL CAPS Take 1 cap po bid x 10 days CEFDINIR 69814351125 No Longer Active Robbie Busby MD Active AMLODIPINE BESYLATE 10 MG TABS 1 tablet by mouth daily AMLODIPINE BESYLATE 48571830852 Active Robbie Busby MD Active CARVEDILOL 25 MG TABS 1 & 1/2 TAB po BID CARVEDILOL 00934081945 Active Robbie Busby MD Active NEXIUM 40 MG CPDR 1 cap by mouth daily ESOMEPRAZOLE MAGNESIUM 26118719407 Active Robbie Busby MD Active PROTONIX 40 MG SOLR 1 po qday for acid reflux PANTOPRAZOLE SODIUM 61972826632 No Longer Active Gali Raida Active KEFLEX 500 MG CAP 1 po TID x 10 days CEPHALEXIN 89029739985 No Longer Active Robbie Busby MD Active TOPIRAMATE 50 MG ORAL TABS take 1 tab po BID for migraines. TOPIRAMATE 08971738318 Active Robbie Busby MD Active TEMAZEPAM 15 MG ORAL CAPS 1 TAB PO Q HS TEMAZEPAM 51932555884 Active Robbie Busby MD Active ALPRAZOLAM 2 MG ORAL TABS 1 TAB PO BID ALPRAZOLAM 45261927083 Active Robbie Busby MD Active FENOFIBRATE 145 MG TABS Take one by mouth daily FENOFIBRATE 86862633479 No Longer Active Robbie Busby MD Active SPIRONOLACTONE 50 MG TABS 1 tablet by mouth twice a day SPIRONOLACTONE 93501575885 No Longer Active Robbie Busby MD Active HYDRALAZINE HCL 25 MG TABS 1 tablet by mouth tid for hypertension HYDRALAZINE HCL 58232912640 No Longer Active Robbie Busby MD Active VIIBRYD 40 MG TABS take 1 tab po qday for depression. VILAZODONE HCL 72313166457 No Longer Active Robbie Busby MD Active TERBINAFINE HCL 250 MG TABS 1 tab po qday for foot infection 2014 TERBINAFINE HCL 85283892682 No Longer Active Robbie Busby MD Active GABAPENTIN 300 MG CAPS 1 po q hs for nerve pain GABAPENTIN 75264157766 Active Robbie Busby MD Active CHERATUSSIN AC 100-10 MG/5ML ORAL SOLN 7.5 mL PO q 4-6 hrs PRN cough GUAIFENESIN-CODEINE 55753647765 No Longer Active Robbie Busby MD Active AZITHROMYCIN 250 MG ORAL TABS 2 tablets PO today---then, 1 tablet PO daily x 4 more days (and 1 optional refill) AZITHROMYCIN 16506024015 No Longer Active Robbie Busby MD Active NORVASC 10 MG TAB 1 tablet by mouth daily AMLODIPINE BESYLATE 24651343669 No Longer Active Alex ALVAREZ Active IMDUR 60 MG TAB CR take 1 tab po qday for blood pressure ISOSORBIDE MONONITRATE Active Robbie Busby MD Active ISOSORBIDE DINITRATE 30 MG TABS Take one by mouth daily ISOSORBIDE DINITRATE 31867744299 No Longer Active Robbie Busby MD Active VIIBRYD 40 MG TABS 1 TA B PO DAILY VILAZODONE HCL 64394364431 Active Robbie Busby MD Active ZITHROMAX 250 MG TAB 2 po today, then 1 po q days 2-5 AZITHROMYCIN 72789123031 No Longer Active Robbie Busby MD Active [id number]-6 0.3 MG/24HR PTWK apply 2 patches q week for HTN CLONIDINE HCL 66938819981 Active Robbie Busby MD Active DOXAZOSIN MESYLATE 4 MG TABS Take one by mouth daily DOXAZOSIN MESYLATE 59087548950 Active Robbie Busby MD Active TOPROL XL 200 MG VE14T-ELK Take one by mouth daily METOPROLOL SUCCINATE 52535377040 Active Robbie Busby MD Active VENLAFAXINE HCL ER 150 MG PO50T-CSC Take one by mouth daily VENLAFAXINE HCL 56003082502 Active Robbie Busby MD Active LIPITOR 40 MG TABS Take one by mouth daily ATORVASTATIN CALCIUM 98878027432 Active Robbie Busby MD Active ISOSORBIDE DINITRATE 30 MG TABS Take one by mouth daily ISOSORBIDE DINITRATE 30 MG TABS 131295 ISOSORBIDE DINITRATE Inactive NORVASC 10 MG TAB 1 tablet by mouth daily NORVASC 10 MG TAB 622127 AMLODIPINE BESYLATE Inactive AZITHROMYCIN 250 MG ORAL TABS 2 tablets PO today---then, 1 tablet PO daily x 4 more days (and 1 optional refill) AZITHROMYCIN 250 MG ORAL TABS 1754214 AZITHROMYCIN Inactive CHERATUSSIN AC 100-10 MG/5ML ORAL SOLN 7.5 mL PO q 4-6 hrs PRN cough CHERATUSSIN AC 100-10 MG/5ML ORAL SOLN 838729 GUAIFENESIN- CODEINE Inactive VIIBRYD 40 MG TABS take 1 tab po qday for depression. VIIBRYD 40 MG TABS VILAZODONE HCL Inactive HYDRALAZINE HCL 25 MG TABS 1 tablet by mouth tid for hypertension HYDRALAZINE HCL 25 MG TABS 317773 HYDRALAZINE HCL Inactive SPIRONOLACTONE 50 MG TABS 1 tablet by mouth twice a day SPIRONOLACTONE 50 MG TABS 704256 SPIRONOLACTONE Inactive FENOFIBRATE 145 MG TABS Take one by mouth daily FENOFIBRATE 145 MG TABS 205690 FENOFIBRATE Inactive PROTONIX 40 MG SOLR 1 po qday for acid reflux PROTONIX 40 MG SOLR 548108 PANTOPRAZOLE SODIUM Inactive CEFDINIR 300 MG ORAL CAPS Take 1 cap po bid x 10 days CEFDINIR 300 MG ORAL CAPS 988056 CEFDINIR Inactive PREDNISONE 20 MG TAB 1 tablet twice daily for 2 days, then 1 tablet once daily for 2 days PREDNISONE 20 MG TAB 192946 PREDNISONE Inactive NYSTATIN 378878 UNIT/ML M/T SUSP 5mL po QID x 10 days NYSTATIN 347262 UNIT/ML M/T SUSP 324717 NYSTATIN Inactive BETADINE 10 % EXT SOLN 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 BETADINE 10 % EXT SOLN 4977419 POVIDONE-IODINE Inactive TRILEPTAL 150 MG ORAL TABS 1 TAB PO Q HS TRILEPTAL 150 MG ORAL TABS 155465 OXCARBAZEPINE Inactive LAMISIL 125 MG ORAL PACK 1 TAB PO DAILY LAMISIL 125 MG ORAL PACK TERBINAFINE HCL Inactive HYDROCHLOROTHIAZIDE TABS Take one by mouth daily HYDROCHLOROTHIAZIDE TABS HYDROCHLOROTHIAZIDE TABS Inactive HYDROCODONE-ACETAMINOPHEN 5-325 MG TABS 1 tab by mouth BID prn back pain 2013 HYDROCODONE-ACETAMINOPHEN 5-325 MG TABS 968554 HYDROCODONE -ACETAMINOPHEN Inactive HYDRALAZINE HCL 50 MG ORAL TABS TWO BY MOUTH THREE TIMES DAILY HYDRALAZINE HCL 50 MG ORAL TABS 512448 HYDRALAZINE HCL Inactive LEVAQUIN 500 MG TAB 1 tablet by mouth daily for 7 days LEVAQUIN 500 MG TAB 260412 LEVOFLOXACIN Inactive SPIRONOLACTONE 25 MG TAB 4 tablets by mouth daily SPIRONOLACTONE 25 MG TAB 405122 SPIRONOLACTONE Inactive MECLIZINE HCL 25 MG TAB one 4 times a day as needed for dizziness MECLIZINE HCL 25 MG TAB 004923 MECLIZINE HCL Inactive CLONIDINE HCL 0.2 MG ORAL TABS 1 TAB BY MOUTH EVERY 8 HOURS 12/29 CLONIDINE HCL 0.2 MG ORAL TABS 601202 CLONIDINE HCL Inactive CYCLOBENZAPRINE HCL 10 MG TABS 1 tablet by mouth three times daily as needed for muscle spasm/pain for 10 days CYCLOBENZAPRINE HCL 10 MG TABS 299698 CYCLOBENZAPRINE HCL Inactive VITAMIN D3 23642 UNIT CAPS 2 CAPS PO WEEKLY VITAMIN D3 36738 UNIT CAPS CHOLECALCIFEROL Inactive FIORICET 50-300-40 MG ORAL CAPS take 1 tab po qday prn migraines. FIORICET 50-300-40 MG ORAL CAPS 944777 [id number] Inactive FLONASE 50 MCG/ACT SUSP 1 spray each nostril twice daily for allergies and runny nose FLONASE 50 MCG/ACT SUSP 8179447 FLUTICASONE PROPIONATE Inactive LORATADINE 10 MG TABS 1 tablet by mouth daily for congestion and allergies. LORATADINE 10 MG TABS 221354 LORATADINE Inactive NITROSTAT 0.4 MG SUBL PRN NITROSTAT 0.4 MG SUBL 275683 NITROGLYCERIN Inactive ZITHROMAX 250 MG TAB 2 po today, then 1 po q days 2-5 ZITHROMAX 250 MG TAB 9248416 AZITHROMYCIN Inactive TERBINAFINE HCL 250 MG TABS 1 tab po qday for foot infection 2014 TERBINAFINE HCL 250 MG TABS 098720 TERBINAFINE HCL Inactive KEFLEX 500 MG CAP 1 po TID x 10 days KEFLEX 500 MG CAP 762465 CEPHALEXIN Inactive BACTRIM DS 800-160 MG TAB 1 tab by mouth twice daily BACTRIM DS 800-160 MG TAB 411293 TRIMETHOPRIM-SULFAMETHOXAZOLE Inactive PREDNISONE 20 MG TAB take 3 tabs daily for 3 days, 2 tabs daily for 3 days, 1 tab daily for 3 days, 1/2 tab daily for 4 days PREDNISONE 20 MG TAB 451602 PREDNISONE Inactive Advance Directives Directive Description Start [...] AUTO - Chemistry sodium, serum 142 mmol/L 205-654 9711/07/17 carbon dioxide, venous blood 28.2 mmol/L 21.0-32.0 [...] % 11.0-15.0 platelet count 185 THOUSAND/UL 10*3/mm3 837-688 9035/04/14 mean platelet volume 10.9 fL 7.5-12.5 Lab Report: LIPID PANEL, TSH/899, T4, FREE/866 - Chemistry cholesterol, serum 220 mg/dL 790-996 1532/04/14 HDL cholesterol, serum 30 mg/dL > OR=40 triglyceride, serum, fasting 466 mg/dL <150 LDL cholesterol, serum SEE NOTE mg/dL (calc) mg/dL <130 cholesterol/HDL ratio, serum 7.3 (calc) < OR=5.0 Lab Report: MICROALB/CREAT W/RATIO - Chemistry albumin/creatinine ratio, urine < 30 mg/g mg/g{creat} 0-29 Lab Report: MICROALB/CREAT W/RATIO - Lab microalbumin, urine 80 0-19 Lab Report: VITAMIN D, 25-HYDROXY/93808 - Chemistry vitamin D 25-hydroxy, serum 25 ng/mL 30-100 Office Visit: Confusion, dizziness after fall - Basic LDL target level 130 mg/dL Office Visit: Confusion, dizziness after fall - Chemistry HDL cholesterol, serum, target level 40 mg/dL triglyceride, target level 150 mg/dL cholesterol, target level 200 mg/dL Encounters Code Encounter Date Provider Facility CPT-65139 Level 3 Est. Patient 09:00:37 CDT Rober Rodríguez [facility] [place] CPT-07254 Level 3 Est. Patient 16:07:10 CDT Robbie Busby MD [facility] CPT-63435 Level 4 Est. Patient 11:56:16 CDT Erin Garsia [facility] [place] CPT-21926 Level 3 Est. Patient 17:48:02 CDT Robbie Busby MD [facility] CPT-95310 Level 4 Est. Patient 12:00:49 [employer] Rober Rodríguez [facility] [place] CPT-14144 Level 3 Est. Patient 09:16:37 CDT Robbie Busby MD [facility]-90832 Level 3 Est. Patient 19:38:43 CDT Robbie Busby MD [facility] CPT-55596 Level 3 Est. Patient 11:53:38 CDT Robbie Busby MD [facility] CPT-65554 Level 4 Est. Patient 12:52:22 CDT Rober Rodríguez [facility] [place] CPT-37726 Level 4 Est. Patient 22:55:17 CDT Robbie Busby MD [facility] CPT-07443 Level 3 Est. Patient 12:38:24 CDT Desmond Diaz DO [facility] CPT-97515 Level 4 Est. Patient 11:25:03 [employer]IR[employer] Robbie Busby MD [facility] CPT-80666 Level 4 Est. Patient 14:50:10 CDT Robbie Busby MD [facility] CPT-75061 Level 4 Est. Patient 23:30:43 CDT Robbie Busby MD [facility] CPT-98340 Level 4 Est. Patient 10:30:43 CDT Robbie Busby MD [facility] CPT-46416 Level 3 Est. Patient 17:08:12 CDT Alex ALVAREZ [facility] CPT-26381 Level 4 Est. Patient 17:51:38 CDT Robbie Busby MD [facility] CPT-73716 Level 4 Est. Patient 14:00:21 CDT Robbie Busby MD [facility] CPT-58317 Level 4 Est. Patient 12:46:48 CDT Robbie Busby MD [facility] CPT-34327 Level 4 Est. Patient 13:34:33 CDT Robbie Busby MD [facility] CPT-24322 Level 4 Est. Patient 16:58:28 CDT Robbie Busby MD [facility] CPT-48364 Level 3 Est. Patient 19:36:53 CDT Alex Shaw [facility] CPT-55296 Level 3 Est. Patient 12:58:15 CDT Robbie Busby MD [facility] Procedures Code Procedure Name Date Entry Date Standard Description CPT-J1071 Depo Testosterone 200mg 08:24:00 CDT CPT-07147 Abx/Therapy Injection 08:24:00 CDT CPT-55835 Venipuncture Draw Fee 14:39:06 CDT CPT-09014 Ribs unilateral 2V - XRAY USE ONLY 12:10:11 CDT CPT-37363 First Vx - Ix admin for Medicare patients 16:32:53 CDT CPT-47632 Boostrix Intramuscular Suspension 5-2.5-18.5 16:32:53 CDT CPT-65929 TB Skin Test 11:42:28 CDT CPT-41264 Tdap 7yrs or > 11:42:28 CDT CPT-J0696 Rocephin 1000 mg (Ceftriaxone) 17:43:43 [employer]IR[employer] CPT-J1040 Depo Medrol 80 mg (Methyl Prednisolone Acetate) 17:43: 43 [employer]IR[employer] CPT-J1100 Decadron 8mg (Dexamethasone) 17:43:42 [employer]IRLS [employer] CPT-21417 Abx/Therapy Injection 17:43:42 [employer]IRLS [employer] CPT-96599 Abx/Therapy Injection 17:43:42 [employer]IRLS [employer] CPT-J1040 Depo Medrol 80 mg (Methyl Prednisolone Acetate) 09:43: 34 [employer]IR[employer] CPT-J1100 Decadron 8mg (Dexamethasone) 09:43:34 [employer]IRLS [employer] CPT-J0696 Rocephin 1gm Inj Solr 09:43:34 [employer]IRLS [employer] CPT-72541 Wound Culture - LAB USE ONLY 14:00:21 CDT CPT-I/D I/D Abscess 09:16:37 CDT CPT-45905 Venipuncture Draw Fee 15:20:23 CDT CPT-99362 Microalbumin - LAB USE ONLY 16:02:19 CDT CPT-21482 CBC - LAB USE ONLY 16:02:19 CDT CPT-85871 Venipuncture Draw Fee 16:02:19 CDT CPT-G0438 Initial Annual Wellness Exam 08:10:28 CDT CPT-04535 Venipuncture Draw Fee 13:07:17 CDT CPT-G0008 Administration of Influenza Virus Vaccine 16:09:59 CDT CPT-14668 Fluzone Quadrivalent Intramuscular Suspension 0.5 ML 16: 09:59 CDT CPT-88049 Spec Collection and Handling Fee 15:05:50 CDT
--- OUTSIDE RECORDS SUMMARY | 2018-04-18 11:37 | XMS REPORT | Clinical Summary ---
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 Desmond Diaz DO Other malignant secondary hypertension Tachycardia 785.0 Active Rober Rodríguez [employer] Tachycardia, unspecified Insect bite, infected 919.5 Resolved Desmond Diaz DO Insect bite, nonvenomous, of other, multiple, and unspecified sites, infected Abscess, skin 682.9 Resolved Desmond Diaz DO Cellulitis and abscess of unspecified sites URI 465.9 Resolved Desmond Diaz DO Acute upper respiratory infections of unspecified site Hypertension 401.9 Active Rober Rodríguez [employer] Unspecified essential hypertension Sinusitis - acute 461.9 [...] Hypogonadism, low testosterone 257.2 Active Erin Mai [employer] Other testicular hypofunction Low back pain, chronic [...] 37.0-37.9, adult Sinusitis ICD-461.9 Inactive Emily Atwood T[employer] KELLER OPERATOR 2017 Low back pain, acute ICD-724.2 Inactive Emily Atwood TAPE KELLER OPERATOR Low back pain, chronic ICD-724.2 Inactive Emily Atwood TAPE KELLER OPERATOR Bronchitis, acute ICD-466.0 Inactive Emily Atwood TAPE KELLER OPERATOR Onychomycosis, toenails ICD-110.1 Inactive Emily Atwood TAPE KELLER OPERATOR Dizziness ICD-780.4 Inactive Emily Atwood [employer]APE KELLER OPERATOR 2017 Folliculitis ICD-704.8 Inactive Emily Atwood TAPE KELLER OPERATOR Pharyngitis-Acute ICD-462 Inactive Emily Atwood TAPE KELLER OPERATOR Fatigue ICD-780.79 Inactive Emily Atwood [employer] KE[employer]ER OPERATOR 09/20 Hypertension, secondary, malignant ICD-405.09 Inactive Emily Atwood TAPE KELLER OPERATOR Insect bite, infected ICD-919.5 Inactive Emily Atwood TAPE KELLER OPERATOR Abscess, skin ICD-682.9 Inactive Emily Atwood TAPE KELLER OPERATOR URI ICD-465.9 Inactive Emily Atwood TAPE KELLER OPERATOR Sinusitis - acute ICD-461.9 Inactive Emily Atwood TAPE KELLER OPERATOR Acute confusion ICD-293.0 Inactive Emily Atwood TAPE KELLER OPERATOR Headache ICD-784.0 Inactive Emily Rai CISSE 09/20 Back pain ICD-724.5 Inactive Emily Atwood TAPE KELLER OPERATOR 2017 Rib pain, right sided ICD-786.50 Inactive [...] blood pressure and rapid pulse METOPROLOL SUCCINATE 66488015514 Active Robbie Busby MD Active [id number]-[id number]-8 0.3 MG/24HR TRANSDERMAL PATCH WEEKLY apply 2 patches q week for HTN CLONIDINE HCL 17760969167 No Longer Active Robbie Busby MD Active IMDUR 60 MG ORAL TABLET EXTENDED RELEASE 24 HOUR take 1 tab po qday for blood pressure ISOSORBIDE MONONITRATE 64908550368 No Longer Active Robbie Busby MD Active TEMAZEPAM 15 MG ORAL CAPSULE 1 TAB PO Q HS TEMAZEPAM 48946016776 No Longer Active Robbie Busby MD Active TOPIRAMATE 50 MG ORAL TABLET 1 po BID for migraines TOPIRAMATE 97982528269 No Longer Active Robbie Busby MD Active CYCLOBENZAPRINE HCL 10 MG ORAL TABLET 1 tablet by mouth three times daily as needed for muscle spasm/pain CYCLOBENZAPRINE HCL 41706563861 No Longer Active Robbie Busby MD Active TOPROL XL 200 MG ORAL TABLET EXTENDED RELEASE 24 HOUR Take one by mouth daily METOPROLOL SUCCINATE 21937707671 No Longer Active Robbie Busby MD Active METFORMIN HCL 500 MG ORAL TABLET 1 tablet by mouth daily for diabetes type 2 METFORMIN HCL 00408827338 Active Robbie Busby MD Active SINGULAIR 10 MG ORAL TABLET 1 po qday for allergies. MONTELUKAST SODIUM 30008160927 No Longer Active Robbie Busby MD Active PREDNISONE 20 MG ORAL TABLET two tabs by mouth today, then one tab by mouth days two and three PREDNISONE 17183601765 No Longer Active Robbie Busby MD Active AZITHROMYCIN 250 MG ORAL TABLET 2 po qd x 1 day, then 1 po qd x 4 days 09/20 AZITHROMYCIN 98028375972 No Longer Active Desmond Diaz DO Active TOPIRAMATE 50 MG ORAL TABLET take 1 tab po BID for migraines. TOPIRAMATE 45974514957 No Longer Active Desmond Diaz DO Active CYCLOBENZAPRINE HCL 10 MG ORAL TABLET 1 po TID PRN muscle spasm/pain for 10 days CYCLOBENZAPRINE HCL 64205197358 No Longer Active Desmond Diaz DO Active GUAIFENESIN ER 600 MG ORAL TABLET EXTENDED RELEASE 12 HOUR 1 tab po q am 2016 GUAIFENESIN 29657593627 No Longer Active Robbie Busby MD Active DIVALPROEX SODIUM ER 500 MG ORAL TABLET EXTENDED RELEASE 24 HOUR Once daily DIVALPROEX SODIUM 66891513509 Active Robbie Busby MD Active DEPO-TESTOSTERONE 200 MG/ML INTRAMUSCULAR SOLUTION 1 IM Injections every 2 weeks for low testosterone TESTOSTERONE CYPIONATE 17347240752 Active Zulema Blank LPN Active FLUTICASONE PROPIONATE 50 MCG/ACT NASAL SUSPENSION 2 sprays per nostril bid for 1 week, then 1 spray bid FLUTICASONE PROPIONATE 19973155280 Active Rober Rodríguez APRN Active HYDRALAZINE HCL 25 MG ORAL TABLET Take 1 tab BID. HYDRALAZINE HCL 66552235426 Active Rober Rodríguez APRN Active VITAMIN D3 65729 UNIT ORAL TABLET 2 po weekly CHOLECALCIFEROL 30568303717 Active Robbie Busby MD Active OXYCODONE HCL ER 10 MG ORAL TABLET ER 12 HOUR ABUSE-DETERRENT 1 tab po 3 times qd. OXYCODONE HCL 85881366093 Active Robbie Busby MD Active NITROSTAT 0.4 MG SUBLINGUAL TABLET SUBLINGUAL PRN NITROGLYCERIN 65818682122 No Longer Active Robbie Busby MD Active LORATADINE 10 MG ORAL TABLET 1 tablet by mouth daily for congestion and allergies. LORATADINE 09931319657 No Longer Active Robbie Busby MD Active FLONASE 50 MCG/ACT NASAL SUSPENSION 1 spray each nostril twice daily for allergies and runny nose FLUTICASONE PROPIONATE 50647294564 No Longer Active Robbie Busby MD Active FIORICET 50-300-40 MG ORAL CAPSULE take 1 tab po qday prn migraines. OOUCJUPLHE-YOUB-IWWHTGWJ 91579716270 No Longer Active Robbie Busby MD Active VITAMIN D3 18637 UNIT ORAL CAPSULE 2 CAPS PO WEEKLY CHOLECALCIFEROL 75819267467 No Longer Active Robbie Busby MD Active CYCLOBENZAPRINE HCL 10 MG ORAL TABLET 1 tablet by mouth three times daily as needed for muscle spasm/pain for 10 days CYCLOBENZAPRINE HCL 83656259982 No Longer Active Robbie Busby MD Active PREDNISONE 20 MG ORAL TABLET take 3 tabs daily for 3 days, 2 tabs daily for 3 days, 1 tab daily for 3 days, 1/2 tab daily for 4 days PREDNISONE 34043124333 No Longer Active Erin Mai APRN Active CLONIDINE HCL 0.2 MG ORAL TABLET 1 TAB BY MOUTH EVERY 8 HOURS CLONIDINE HCL 84493122327 No Longer Active Erin Mai APRN Active MECLIZINE HCL 25 MG ORAL TABLET one 4 times a day as needed for dizziness MECLIZINE HCL 52438177101 No Longer Active Erin Arell [employer] Active SPIRONOLACTONE 25 MG ORAL TABLET 4 tablets by mouth daily SPIRONOLACTONE 18600136955 No Longer Active Erin Arell [employer] Active LEVAQUIN 500 MG ORAL TABLET 1 tablet by mouth daily for 7 days LEVOFLOXACIN 22354501820 No Longer Active Erin Arell [employer] Active BACTRIM DS 800-160 MG ORAL TABLET 1 tab by mouth twice daily 2015 TRIMETHOPRIM-SULFAMETHOXAZOLE 40862275808 No Longer Active Robbie Busby MD Active HYDRALAZINE HCL 50 MG ORAL TABLET TWO BY MOUTH THREE TIMES DAILY HYDRALAZINE HCL 12190741541 No Longer Active Agnieszkaina Zulemal [employer] Active HYDROCODONE-ACETAMINOPHEN 5-325 MG ORAL TABLET 1 tab by mouth BID prn back pain HYDROCODONE-ACETAMINOPHEN 38434182434 No Longer Active Jillina Frazell [employer] Active HYDROCHLOROTHIAZIDE TABLET Take one by mouth daily HYDROCHLOROTHIAZIDE TABS 36395856356 No Longer Active Jillina Frazell [employer] Active LAMISIL 125 MG ORAL PACKET 1 TAB PO DAILY TERBINAFINE HCL 11914220033 No Longer Active Jillina Frazell [employer] Active TRILEPTAL 150 MG ORAL TABLET 1 TAB PO Q HS OXCARBAZEPINE 63981990171 No Longer Active Jillina Frazell [employer] Active BETADINE 10 % EXTERNAL SOLUTION 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 07/29 POVIDONE-IODINE 67192217997 No Longer Active Jillina Frazell [employer] Active NYSTATIN 035067 UNIT/ML MOUTH/THROAT SUSPENSION 5mL po QID x 10 days NYSTATIN 00433341984 No Longer Active Erin Arell [employer] Active PREDNISONE 20 MG ORAL TABLET 1 tablet twice daily for 2 days, then 1 tablet once daily for 2 days PREDNISONE 59706425545 No Longer Active Robbie Busby MD Active CEFDINIR 300 MG ORAL CAPSULE Take 1 cap po bid x 10 days CEFDINIR 07529257165 No Longer Active Robbie Busby MD Active AMLODIPINE BESYLATE 10 MG ORAL TABLET 1 tablet by mouth daily AMLODIPINE BESYLATE 48054286280 Active Robbie Busby MD Active CARVEDILOL 25 MG ORAL TABLET 1 & 1/2 TAB po BID CARVEDILOL 67970074582 Active Robbie Busby MD Active NEXIUM 40 MG ORAL CAPSULE DELAYED RELEASE 1 cap by mouth daily ESOMEPRAZOLE MAGNESIUM 34148189703 Active Robbie Busby MD Active PROTONIX 40 MG INTRAVENOUS SOLUTION RECONSTITUTED 1 po qday for acid reflux PANTOPRAZOLE SODIUM 21729209190 No Longer Active Galileonila Negro Active KEFLEX 500 MG ORAL CAPSULE 1 po TID x 10 days CEPHALEXIN 95308433703 No Longer Active Robbie Busby MD Active ALPRAZOLAM 2 MG ORAL TABLET 1 TAB PO BID ALPRAZOLAM 70740264635 Active Robbie Busby MD Active FENOFIBRATE 145 MG ORAL TABLET Take one by mouth daily FENOFIBRATE 97228942987 No Longer Active Robbie Busby MD Active SPIRONOLACTONE 50 MG ORAL TABLET 1 tablet by mouth twice a day SPIRONOLACTONE 36466554288 No Longer Active Robbie Busby MD Active HYDRALAZINE HCL 25 MG ORAL TABLET 1 tablet by mouth tid for hypertension 2013 HYDRALAZINE HCL 26821802224 No Longer Active Robbie Busby MD Active VIIBRYD 40 MG ORAL TABLET take 1 tab po qday for depression. 2014 VILAZODONE HCL 45418129162 No Longer Active Robbie Busby MD Active TERBINAFINE HCL 250 MG ORAL TABLET 1 tab po qday for foot infection TERBINAFINE HCL 37432811393 No Longer Active Robbie Busby MD Active GABAPENTIN 300 MG ORAL CAPSULE 1 po q hs for nerve pain GABAPENTIN 40217361557 Active Robbie Busby MD Active CHERATUSSIN AC 100-10 MG/5ML ORAL SOLUTION 7.5 mL PO q 4-6 hrs PRN cough 2014 GUAIFENESIN-CODEINE 08620662207 No Longer Active Robbie Busby MD Active AZITHROMYCIN 250 MG ORAL TABLET 2 tablets PO today---then, 1 tablet PO daily x 4 more days (and 1 optional refill) AZITHROMYCIN 19741460298 No Longer Active Robbie Busby MD Active NORVASC 10 MG ORAL TABLET 1 tablet by mouth daily AMLODIPINE BESYLATE 03253532267 No Longer Active Alex ALVAREZ Active ISOSORBIDE DINITRATE 30 MG ORAL TABLET Take one by mouth daily ISOSORBIDE DINITRATE 50059934084 No Longer Active Robbie Busby MD Active VIIBRYD 40 MG ORAL TABLET 1 TA B PO DAILY VILAZODONE HCL 63546139096 Active Robbie Busby MD Active ZITHROMAX 250 MG ORAL TABLET 2 po today, then 1 po q days 2-5 AZITHROMYCIN 59325634395 No Longer Active Robbie Busby MD Active DOXAZOSIN MESYLATE 4 MG ORAL TABLET Take one by mouth daily DOXAZOSIN MESYLATE 42212635708 Active Robbie Busby MD Active VENLAFAXINE HCL ER 150 MG ORAL TABLET EXTENDED RELEASE 24 HOUR Take one by mouth daily VENLAFAXINE HCL 69193901409 Active Robbie Busby MD Active LIPITOR 40 MG ORAL TABLET Take one by mouth daily ATORVASTATIN CALCIUM 67441406707 Active Robbie Busby MD Active ISOSORBIDE DINITRATE 30 MG ORAL TABLET Take one by mouth daily ISOSORBIDE DINITRATE 30 MG ORAL TABLET 864447 ISOSORBIDE DINITRATE Inactive NORVASC 10 MG ORAL TABLET 1 tablet by mouth daily NORVASC 10 MG ORAL TABLET 420531 AMLODIPINE BESYLATE Inactive AZITHROMYCIN 250 MG ORAL TABLET 2 tablets PO today---then, 1 tablet PO daily x 4 more days (and 1 optional refill) AZITHROMYCIN 250 MG ORAL TABLET 814237 AZITHROMYCIN Inactive CHERATUSSIN AC 100-10 MG/5ML ORAL SOLUTION 7.5 mL PO q 4-6 hrs PRN cough 2014 CHERATUSSIN AC 100-10 MG/5ML ORAL SOLUTION 032334 GUAIFENESIN-CODEINE Inactive VIIBRYD 40 MG ORAL TABLET take 1 tab po qday for depression. 2014 VIIBRYD 40 MG ORAL TABLET VILAZODONE HCL Inactive HYDRALAZINE HCL 25 MG ORAL TABLET 1 tablet by mouth tid for hypertension 2013 HYDRALAZINE HCL 25 MG ORAL TABLET 220359 HYDRALAZINE HCL Inactive SPIRONOLACTONE 50 MG ORAL TABLET 1 tablet by mouth twice a day SPIRONOLACTONE 50 MG ORAL TABLET 235195 SPIRONOLACTONE Inactive FENOFIBRATE 145 MG ORAL TABLET Take one by mouth daily FENOFIBRATE 145 MG ORAL TABLET 168727 FENOFIBRATE Inactive PROTONIX 40 MG INTRAVENOUS SOLUTION RECONSTITUTED 1 po qday for acid reflux PROTONIX 40 MG INTRAVENOUS SOLUTION RECONSTITUTED 178280 PANTOPRAZOLE SODIUM Inactive CEFDINIR 300 MG ORAL CAPSULE Take 1 cap po bid x 10 days CEFDINIR 300 MG ORAL CAPSULE 162149 CEFDINIR Inactive PREDNISONE 20 MG ORAL TABLET 1 tablet twice daily for 2 days, then 1 tablet once daily for 2 days PREDNISONE 20 MG ORAL TABLET 377307 PREDNISONE Inactive NYSTATIN 896433 UNIT/ML MOUTH/THROAT SUSPENSION 5mL po QID x 10 days NYSTATIN 557345 UNIT/ML MOUTH/THROAT SUSPENSION 599687 NYSTATIN Inactive BETADINE 10 % EXTERNAL SOLUTION 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 07/29 BETADINE 10 % EXTERNAL SOLUTION 7639493 POVIDONE-IODINE Inactive TRILEPTAL 150 MG ORAL TABLET 1 TAB PO Q HS TRILEPTAL 150 MG ORAL TABLET 114833 OXCARBAZEPINE Inactive LAMISIL 125 MG ORAL PACKET 1 TAB PO DAILY LAMISIL 125 MG ORAL PACKET TERBINAFINE HCL Inactive HYDROCHLOROTHIAZIDE TABLET Take one by mouth daily HYDROCHLOROTHIAZIDE TABLET HYDROCHLOROTHIAZIDE TABS Inactive HYDROCODONE-ACETAMINOPHEN 5-325 MG ORAL TABLET 1 tab by mouth BID prn back pain HYDROCODONE-ACETAMINOPHEN 5-325 MG ORAL TABLET 346776 HYDROCODONE-ACETAMINOPHEN Inactive HYDRALAZINE HCL 50 MG ORAL TABLET TWO BY MOUTH THREE TIMES DAILY HYDRALAZINE HCL 50 MG ORAL TABLET 105661 HYDRALAZINE HCL Inactive LEVAQUIN 500 MG ORAL TABLET 1 tablet by mouth daily for 7 days LEVAQUIN 500 MG ORAL TABLET 664626 LEVOFLOXACIN Inactive SPIRONOLACTONE 25 MG ORAL TABLET 4 tablets by mouth daily SPIRONOLACTONE 25 MG ORAL TABLET 602003 SPIRONOLACTONE Inactive MECLIZINE HCL 25 MG ORAL TABLET one 4 times a day as needed for dizziness MECLIZINE HCL 25 MG ORAL TABLET 833595 MECLIZINE HCL Inactive CLONIDINE HCL 0.2 MG ORAL TABLET 1 TAB BY MOUTH EVERY 8 HOURS CLONIDINE HCL 0.2 MG ORAL TABLET 157178 CLONIDINE HCL Inactive CYCLOBENZAPRINE HCL 10 MG ORAL TABLET 1 tablet by mouth three times daily as needed for muscle spasm/pain for 10 days CYCLOBENZAPRINE HCL 10 MG ORAL TABLET 999884 CYCLOBENZAPRINE HCL Inactive VITAMIN D3 97910 UNIT ORAL CAPSULE 2 CAPS PO WEEKLY VITAMIN D3 78455 UNIT ORAL CAPSULE CHOLECALCIFEROL Inactive FIORICET 50-300-40 MG ORAL CAPSULE take 1 tab po qday prn migraines. FIORICET 50-300-40 MG ORAL CAPSULE 648845 BUTALBITAL-APAP- CAFFEINE Inactive FLONASE 50 MCG/ACT NASAL SUSPENSION 1 spray each nostril twice daily for allergies and runny nose FLONASE 50 MCG/ACT NASAL SUSPENSION 9644789 FLUTICASONE PROPIONATE Inactive LORATADINE 10 MG ORAL TABLET 1 tablet by mouth daily for congestion and allergies. LORATADINE 10 MG ORAL TABLET 700157 LORATADINE Inactive NITROSTAT 0.4 MG SUBLINGUAL TABLET SUBLINGUAL PRN NITROSTAT 0.4 MG SUBLINGUAL TABLET SUBLINGUAL 759326 NITROGLYCERIN Inactive GUAIFENESIN ER 600 MG ORAL TABLET EXTENDED RELEASE 12 HOUR 1 tab po q am 2016 GUAIFENESIN ER 600 MG ORAL TABLET EXTENDED RELEASE 12 HOUR GUAIFENESIN Inactive CYCLOBENZAPRINE HCL 10 MG ORAL TABLET 1 po TID PRN muscle spasm/pain for 10 days CYCLOBENZAPRINE HCL 10 MG ORAL TABLET 325023 CYCLOBENZAPRINE HCL Inactive TOPIRAMATE 50 MG ORAL TABLET take 1 tab po BID for migraines. TOPIRAMATE 50 MG ORAL TABLET 406857 TOPIRAMATE Inactive PREDNISONE 20 MG ORAL TABLET two tabs by mouth today, then one tab by mouth days two and three PREDNISONE 20 MG ORAL TABLET 190421 PREDNISONE Inactive TOPROL XL 200 MG ORAL TABLET EXTENDED RELEASE 24 HOUR Take one by mouth daily TOPROL XL 200 MG ORAL TABLET EXTENDED RELEASE 24 HOUR METOPROLOL SUCCINATE Inactive CYCLOBENZAPRINE HCL 10 MG ORAL TABLET 1 tablet by mouth three times daily as needed for muscle spasm/pain CYCLOBENZAPRINE HCL 10 MG ORAL TABLET 634097 CYCLOBENZAPRINE HCL Inactive TOPIRAMATE 50 MG ORAL TABLET 1 po BID for migraines TOPIRAMATE 50 MG ORAL TABLET 275470 TOPIRAMATE Inactive TEMAZEPAM 15 MG ORAL CAPSULE 1 TAB PO Q HS TEMAZEPAM 15 MG ORAL CAPSULE 088861 TEMAZEPAM Inactive IMDUR 60 MG ORAL TABLET EXTENDED RELEASE 24 HOUR take 1 tab po qday for blood pressure IMDUR 60 MG ORAL TABLET EXTENDED RELEASE 24 HOUR ISOSORBIDE MONONITRATE Inactive [id number]-ZXL-6 0.3 MG/24HR TRANSDERMAL PATCH WEEKLY apply 2 patches q week for HTN [id number]-[id number]-4 0.3 MG/24HR TRANSDERMAL PATCH WEEKLY 999782 CLONIDINE HCL Inactive ZITHROMAX 250 MG ORAL TABLET 2 po today, then 1 po q days 2-5 ZITHROMAX 250 MG ORAL TABLET 244829 AZITHROMYCIN Inactive TERBINAFINE HCL 250 MG ORAL TABLET 1 tab po qday for foot infection TERBINAFINE HCL 250 MG ORAL TABLET 653525 TERBINAFINE HCL Inactive KEFLEX 500 MG ORAL CAPSULE 1 po TID x 10 days KEFLEX 500 MG ORAL CAPSULE 190268 CEPHALEXIN Inactive BACTRIM DS 800-160 MG ORAL TABLET 1 tab by mouth twice daily 2015 BACTRIM DS 800-160 MG ORAL TABLET 470601 TRIMETHOPRIM- SULFAMETHOXAZOLE Inactive PREDNISONE 20 MG ORAL TABLET take 3 tabs daily for 3 days, 2 tabs daily for 3 days, 1 tab daily for 3 days, 1/2 tab daily for 4 days PREDNISONE 20 MG ORAL TABLET 925102 PREDNISONE Inactive AZITHROMYCIN 250 MG ORAL TABLET 2 po qd x 1 day, then 1 po qd x 4 days 09/20 AZITHROMYCIN 250 MG ORAL TABLET 532890 AZITHROMYCIN Inactive SINGULAIR 10 MG ORAL TABLET 1 po qday for allergies. SINGULAIR 10 MG ORAL TABLET 505576 MONTELUKAST SODIUM Inactive Advance Directives Directive Description [...] AUTO - Chemistry sodium, serum 142 mmol/L 200-316 6916/07/17 carbon dioxide, venous blood 28.2 mmol/L 21.0-32.0 [...] % 11.0-15.0 platelet count 185 THOUSAND/UL 10*3/mm3 913-029 6228/04/14 mean platelet volume 10.9 fL 7.5-12.5 Lab Report: HGBA1C, Basic Metabolic Panel - Chemistry hemoglobin A1C, blood, as % of total hemoglobin 6.9 % 4.3-6.0 sodium, serum 139 mmol/L 745-356 1290/01/04 potassium, serum 3.9 mmol/L 3.5-5.2 chloride, serum 103 mmol/L 98-107 carbon dioxide, venous blood 26.9 mmol/L 21.0-32.0 blood glucose 106 mg/dL 65-110 calcium, serum 9.0 mg/dL 8.5-10.1 urea nitrogen, blood 20 mg/dL 7-18 creatinine, serum 1.46 mg/dL 0.60-1.30 Lab Report: LIPID PANEL, TSH/899, T4, FREE/866 - Chemistry cholesterol, serum 220 mg/dL 720-518 7155/04/14 HDL cholesterol, serum 30 mg/dL > OR=40 [...] 1.80 ng/mL 0.00-4.00 Lab Report: VITAMIN D, 25-HYDROXY/12497 - Chemistry vitamin D 25-hydroxy, serum 25 ng/mL 30-100 Office Visit: Confusion, dizziness after fall - Basic LDL target level 130 mg/dL Office Visit: Confusion, dizziness after fall - Chemistry HDL cholesterol, serum, target level 40 mg/dL triglyceride, target level 150 mg/dL cholesterol, target level 200 mg/dL Encounters Code Encounter Date Provider Facility CPT-56107 Level 4 Est. Patient 09:50:01 ROUGE PRESSER Robbie Busby MD [facility] CPT-87000 Level 4 Est. Patient 09:42:08 ROUGE PRESSER Robbie Busby MD [facility] CPT-28364 Level 4 Est. Patient 13:07:39 ROUGE PRESSER Robbie Busby MD [facility] CPT-43459 Level 4 Est. Patient 15:23:44 ROUGE PRESSER Desmond Diaz DO [facility] CPT-46995 Level 3 Est. Patient 15:40:49 CDT Robbie Busby MD [facility] CPT-38265 Level 4 Est. Patient 15:18:19 CDT Robbie Busby MD [facility] CPT-29855 Level 3 Est. Patient 09:00:37 CDT Rober Rodríguez [facility] CPT-51541 Level 3 Est. Patient 16:07:10 CDT Robbie Busby MD [facility] CPT-25147 Level 4 Est. Patient 11:56:16 CDT Erin Mai [facility] CPT-83583 Level 3 Est. Patient 17:48:02 CDT Robbie Busby MD [facility] CPT-10255 Level 4 Est. Patient 12:00:49 ROUGE PRESSER Rober Rodríguez [facility] CPT-33224 Level 3 Est. Patient 09:16:37 CDT Robbie Busby MD [facility] CPT-33669 Level 3 Est. Patient 19:38:43 CDT Robbie Busby MD [facility] CPT-29685 Level 3 Est. Patient 11:53:38 CDT Robbie Busby MD [facility] CPT-87424 Level 4 Est. Patient 12:52:22 CDT Rober Rodríguez [facility] CPT-21942 Level 4 Est. Patient 22:55:17 CDT Robbie Busby MD [facility] CPT-15368 Level 3 Est. Patient 12:38:24 CDT Desmond Diaz DO [facility] CPT-45632 Level 4 Est. Patient 11:25:03 ROUGE PRESSER Robbie Busby MD [facility] CPT-58810 Level 4 Est. Patient 14:50:10 CDT Robbie Busby MD [facility] CPT-17085 Level 4 Est. Patient 23:30:43 CDT Robbie Busby MD [facility] CPT-31408 Level 4 Est. Patient 10:30:43 CDT Robbie Busby MD [facility] CPT-43738 Level 3 Est. Patient 17:08:12 CDT [facility] CPT-51053 Level 4 Est. Patient 17:51:38 CDT Robbie Busby MD [facility] CPT-20265 Level 4 Est. Patient 14:00:21 CDT Robbie Busby MD [facility] CPT-22190 Level 4 Est. Patient 12:46:48 CDT Robbie Busby MD [facility] CPT-94826 Level 4 Est. Patient 13:34:33 CDT Robbie Busby MD [facility] CPT-30108 Level 4 Est. Patient 16:58:28 CDT Robbie Busby MD [facility] CPT-08315 Level 3 Est. Patient 19:36:53 [facility] Level 3 Est. Patient 12:58:15 CDT Robbie Busby MD [facility] Procedures Code Procedure Name Date Entry Date Standard Description CPT-J1071 Depo Testosterone 200mg 16:10:29 [employer]OU[employer]ER CPT-98565 Abx/Therapy Injection 16:10:29 ROUGE PRESSER CPT-J1071 Depo Testosterone 200mg 16:13:47 [employer]OU[employer]ER CPT-78355 Abx/Therapy Injection 16:13:46 ROUGE PRESSER CPT-J1071 Depo Testosterone 200mg 15:33:58 [facility] CPT-67446 Abx/Therapy Injection 15:33:58 [facility] CPT-J1071 Depo Testosterone 200mg 09:38:36 [facility] CPT-58906 Abx/Therapy Injection 09:38:36 [facility] CPT-J1071 Depo Testosterone 200mg 10:22:56 [facility] CPT-60014 Abx/Therapy Injection 10:22:56 [facility] CPT-J1071 Depo Testosterone 200mg 15:40:23 CDT CPT-16327 Abx/Therapy Injection 15:40:23 CDT CPT-J1071 Depo Testosterone 200mg 14:20:43 CDT CPT-34798 Abx/Therapy Injection 14:20:43 CDT CPT-J1071 Depo Testosterone 200mg 14:17:22 CDT CPT-95464 Abx/Therapy Injection 14:17:22 CDT CPT-J1071 Depo Testosterone 200mg 09:03:53 CDT CPT-81424 Abx/Therapy Injection 09:03:53 CDT CPT-G0439 [facility] Annual Wellness Exam 16:47:44 CDT CPT-J1071 Depo Testosterone 200mg 09:06:28 CDT CPT-23644 Abx/Therapy Injection 09:06:28 CDT CPT-J1071 Depo Testosterone 200mg 08:30:01 CDT CPT-49420 Abx/Therapy Injection 08:30:01 CDT CPT-J1071 Depo Testosterone 200mg 08:24:00 CDT CPT-98045 Abx/Therapy Injection 08:24:00 CDT CPT-12313 Venipuncture Draw Fee 14:39:06 CDT CPT-22706 Ribs unilateral 2V - XRAY USE ONLY 12:10:11 CDT CPT-23402 First Vx - Ix admin for Medicare patients 16:32:53 CDT CPT-40502 Boostrix Intramuscular Suspension 5-2.5-18.5 16:32:53 CDT CPT-36212 TB Skin Test 11:42:28 CDT CPT-61111 Tdap 7yrs or > 11:42:28 CDT CPT-J0696 Rocephin 1000 mg (Ceftriaxone) 17:43:43 [employer] CPT-J1040 Depo Medrol 80 mg (Methyl Prednisolone Acetate) 17:43: 43 [employer] CPT-J1100 Decadron 8mg (Dexamethasone) 17:43:42 [employer]ER CPT-20216 Abx/Therapy Injection 17:43:42 R[employer]GE [employer]ER CPT-06316 Abx/Therapy Injection 17:43:42 ROUGE PRESSER CPT-J1040 Depo Medrol 80 mg (Methyl Prednisolone Acetate) 09:43: 34 ROUGE PRESSER CPT-J1100 Decadron 8mg (Dexamethasone) 09:43:34 ROUGE PRESSER CPT-J0696 Rocephin 1gm Inj Solr 09:43:34 [employer]OUGE PR[employer]ER CPT-21568 Wound Culture - LAB USE ONLY 14:00:21 CDT CPT-I/D I/D Abscess 09:16:37 CDT CPT-75800 Venipuncture Draw Fee 15:20:23 CDT CPT-05894 Microalbumin - LAB USE ONLY 16:02:19 CDT CPT-97553 CBC - LAB USE ONLY 16:02:19 CDT CPT-52255 Venipuncture Draw Fee 16:02:19 CDT CPT-G0438 Initial Annual Wellness Exam 08:10:28 CDT CPT-60126 Venipuncture Draw Fee 13:07:17 CDT CPT-G0008 Administration of Influenza Virus Vaccine 16:09:59 CDT CPT-61959 Fluzone Quadrivalent Intramuscular Suspension 0.5 ML 16: 09:59 CDT CPT-77806 Spec Collection and Handling Fee 15:05:50 CDT
--- OUTSIDE RECORDS SUMMARY | 2018-04-18 11:38 | XMS REPORT | Clinical Summary ---
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 Desmond Diaz DO Other malignant secondary hypertension Tachycardia 785.0 Active Rober Rodríguez [employer] Tachycardia, unspecified Insect bite, infected 919.5 Resolved Desmond Diaz DO Insect bite, nonvenomous, of other, multiple, and unspecified sites, infected Abscess, skin 682.9 Resolved Desmond Diaz DO Cellulitis and abscess of unspecified sites URI 465.9 Resolved Desmond Diaz DO Acute upper respiratory infections of unspecified site Hypertension 401.9 Active Rober Rodríguez [employer] Unspecified essential hypertension Sinusitis - acute 461.9 [...] Hypogonadism, low testosterone 257.2 Active Erin Mai ASSISTANT B[employer] Other testicular hypofunction Low back pain, chronic [...] Body Mass Index 36.0-36.9 Adult Active Robbie uBsby MD Body Mass Index 36.0-36.9, adult Sinusitis ICD-461.9 Inactive Emily Atwood [employer]LEAVENED DOUGH MIXER 2017 Low back pain, acute ICD-724.2 Inactive Emily Atwood [employer]LE[employer] Low back pain, chronic ICD-724.2 Inactive Emily Atwood [employer]LE[employer] D[employer] M[employer]ER Bronchitis, acute ICD-466.0 Inactive Emily Atwood [employer]LE[employer] D[employer] M[employer]ER Onychomycosis, toenails ICD-110.1 Inactive Emily Atwood [employer]LEAV[employer]ED D[employer] MIXER Dizziness ICD-780.4 Inactive Emily Atwood [employer]LE[employer]ED DOUGH MIXER 2017 Folliculitis ICD-704.8 Inactive Emily Atwood [employer]LE[employer] D[employer] M[employer]ER Pharyngitis-Acute ICD-462 Inactive Emily Atwood [employer]LEAV[employer] D[employer] M[employer]ER Fatigue ICD-780.79 Inactive Emily Atwood [employer]LE[employer] D[employer] M[employer]ER 09/20 Hypertension, secondary, malignant ICD-405.09 Inactive Emily Atwood [employer]LEAV[employer] D[employer] M[employer]ER Insect bite, infected ICD-919.5 Inactive Emily Atwood UNLE[employer] D[employer] M[employer]ER Abscess, skin ICD-682.9 Inactive Emily Atwood UNLEAV[employer] DOUGH MIXER URI ICD-465.9 Inactive Emily Atwood UNLEAV[employer] DOUGH MIXER Sinusitis - acute ICD-461.9 Inactive Emily Atwood [employer]LE[employer] DOUGH M[employer]ER Acute confusion ICD-293.0 Inactive Emily Atwood [employer]LEAV[employer] D[employer] M[employer]ER Headache ICD-784.0 Inactive Emily Atwood UNLEAV[employer]ED DOUGH MIXER 09/20 Back pain ICD-724.5 Inactive Emily Atwood [employer]LEAV[employer] DOUGH M[employer]ER 2017 Rib pain, right sided ICD-786.50 Inactive Emily Atwood [employer]LEAV[employer] D[employer] MIXER Myalgias ICD-729.1 Inactive Emily Atwood [employer]LEAVENED DOUGH MIXER 09/20 URI ICD-465.9 Inactive Emily Atwood UNLEAV[employer] D[employer] MIXER Bronchitis-Acute ICD-466.0 Inactive Desmond Diaz DO Medication List Medication Instructions Start Date Stop Date Generic Name NDC Status Provider Patient Instruction MONTELUKAST SODIUM 10 MG ORAL TABLET 1 tab po daily for allergies MONTELUKAST SODIUM 18635679869 Active JONATHAN Moncada Active IMDUR 60 MG ORAL TABLET EXTENDED RELEASE 24 HOUR 1 po q day ISOSORBIDE MONONITRATE 76580301384 Active Emma Hernandez Active METOPROLOL SUCCINATE ER 200 MG ORAL TABLET EXTENDED RELEASE 24 HOUR take 1 tab po qday for high blood pressure and rapid pulse METOPROLOL SUCCINATE 50007950207 Active Robbie Busby MD Active [id number]-QGL-2 0.3 MG/24HR TRANSDERMAL PATCH WEEKLY apply 2 patches q week for HTN CLONIDINE HCL 59146753556 No Longer Active Robbie Busby MD Active IMDUR 60 MG ORAL TABLET EXTENDED RELEASE 24 HOUR take 1 tab po qday for blood pressure ISOSORBIDE MONONITRATE 96919125040 No Longer Active Robbie Busby MD Active TEMAZEPAM 15 MG ORAL CAPSULE 1 TAB PO Q HS TEMAZEPAM 45324113050 No Longer Active Robbie Busby MD Active TOPIRAMATE 50 MG ORAL TABLET 1 po BID for migraines TOPIRAMATE 34544431667 No Longer Active Robbie Busby MD Active CYCLOBENZAPRINE HCL 10 MG ORAL TABLET 1 tablet by mouth three times daily as needed for muscle spasm/pain CYCLOBENZAPRINE HCL 01278245538 No Longer Active Robbie Busby MD Active TOPROL XL 200 MG ORAL TABLET EXTENDED RELEASE 24 HOUR Take one by mouth daily METOPROLOL SUCCINATE 69831392234 No Longer Active Robbie Busby MD Active METFORMIN HCL 500 MG ORAL TABLET 1 tablet by mouth daily for diabetes type 2 METFORMIN HCL 47359915036 Active Robbie Busby MD Active SINGULAIR 10 MG ORAL TABLET 1 po qday for allergies. MONTELUKAST SODIUM 15129000061 No Longer Active Robbie Busby MD Active PREDNISONE 20 MG ORAL TABLET two tabs by mouth today, then one tab by mouth days two and three PREDNISONE 93499895784 No Longer Active Robbie Busby MD Active AZITHROMYCIN 250 MG ORAL TABLET 2 po qd x 1 day, then 1 po qd x 4 days 09/20 AZITHROMYCIN 22813303857 No Longer Active Desmond Diaz DO Active TOPIRAMATE 50 MG ORAL TABLET take 1 tab po BID for migraines. TOPIRAMATE 04080911096 No Longer Active Desmond Diaz DO Active CYCLOBENZAPRINE HCL 10 MG ORAL TABLET 1 po TID PRN muscle spasm/pain for 10 days CYCLOBENZAPRINE HCL 24596636590 No Longer Active Desmond Diaz DO Active GUAIFENESIN ER 600 MG ORAL TABLET EXTENDED RELEASE 12 HOUR 1 tab po q am 2016 GUAIFENESIN 67221182989 No Longer Active Robbie Busby MD Active DIVALPROEX SODIUM ER 500 MG ORAL TABLET EXTENDED RELEASE 24 HOUR Once daily DIVALPROEX SODIUM 13112975255 Active Robbie Busby MD Active DEPO-TESTOSTERONE 200 MG/ML INTRAMUSCULAR SOLUTION 1 IM Injections every 2 weeks for low testosterone TESTOSTERONE CYPIONATE 27618844889 Active Zulema Blank LPN Active FLUTICASONE PROPIONATE 50 MCG/ACT NASAL SUSPENSION 2 sprays per nostril bid for 1 week, then 1 spray bid FLUTICASONE PROPIONATE 72250890535 Active Rober Rodríguez APRN Active HYDRALAZINE HCL 25 MG ORAL TABLET Take 1 tab BID. HYDRALAZINE HCL 51051656241 Active Rober Rodríguez ASSIST[employer]ET[employer]ALL [employer]ACH Active VITAMIN D3 13213 UNIT ORAL TABLET 2 po weekly CHOLECALCIFEROL 72057717421 Active Robbie Busby MD Active OXYCODONE HCL ER 10 MG ORAL TABLET ER 12 HOUR ABUSE-DETERRENT 1 tab po 3 times qd. OXYCODONE HCL 21431113537 Active Robbie Busby MD Active NITROSTAT 0.4 MG SUBLINGUAL TABLET SUBLINGUAL PRN NITROGLYCERIN 45952493953 No Longer Active Robbie Busby MD Active LORATADINE 10 MG ORAL TABLET 1 tablet by mouth daily for congestion and allergies. LORATADINE 70524627218 No Longer Active Robbie Busby MD Active FLONASE 50 MCG/ACT NASAL SUSPENSION 1 spray each nostril twice daily for allergies and runny nose FLUTICASONE PROPIONATE 10224027372 No Longer Active Robbie Busby MD Active FIORICET 50-300-40 MG ORAL CAPSULE take 1 tab po qday prn migraines. [id number] 45302638958 No Longer Active Robbie Busby MD Active VITAMIN D3 76347 UNIT ORAL CAPSULE 2 CAPS PO WEEKLY CHOLECALCIFEROL 62078550878 No Longer Active Robbie Busby MD Active CYCLOBENZAPRINE HCL 10 MG ORAL TABLET 1 tablet by mouth three times daily as needed for muscle spasm/pain for 10 days CYCLOBENZAPRINE HCL 08990791716 No Longer Active Robbie Busby MD Active PREDNISONE 20 MG ORAL TABLET take 3 tabs daily for 3 days, 2 tabs daily for 3 days, 1 tab daily for 3 days, 1/2 tab daily for 4 days PREDNISONE 89620119836 No Longer Active Erin Arell ASSISTANT BASKETBALL COACH Active CLONIDINE HCL 0.2 MG ORAL TABLET 1 TAB BY MOUTH EVERY 8 HOURS CLONIDINE HCL 14227053339 No Longer Active Erin Arell ASSISTANT BASKETBALL COACH Active MECLIZINE HCL 25 MG ORAL TABLET one 4 times a day as needed for dizziness MECLIZINE HCL 83476708005 No Longer Active Erin Arell ASSISTANT BASKETBALL COACH Active SPIRONOLACTONE 25 MG ORAL TABLET 4 tablets by mouth daily SPIRONOLACTONE 36260785639 No Longer Active Erin Arell ASSISTANT BASKETBALL COACH Active LEVAQUIN 500 MG ORAL TABLET 1 tablet by mouth daily for 7 days LEVOFLOXACIN 64849033221 No Longer Active Erin Arell ASSISTANT BASKETBALL COACH Active BACTRIM DS 800-160 MG ORAL TABLET 1 tab by mouth twice daily 2015 TRIMETHOPRIM-SULFAMETHOXAZOLE 01546262803 No Longer Active Robbie Busby MD Active HYDRALAZINE HCL 50 MG ORAL TABLET TWO BY MOUTH THREE TIMES DAILY HYDRALAZINE HCL 42322979248 No Longer Active Jillina Frazell ASSISTANT BASKETBALL COACH Active HYDROCODONE-ACETAMINOPHEN 5-325 MG ORAL TABLET 1 tab by mouth BID prn back pain HYDROCODONE-ACETAMINOPHEN 32058472976 No Longer Active Jillina Frazell ASSISTANT BASKETBALL COACH Active HYDROCHLOROTHIAZIDE TABLET Take one by mouth daily HYDROCHLOROTHIAZIDE TABS 27659523645 No Longer Active Jillina Frazell ASSISTANT BASKETBALL COACH Active LAMISIL 125 MG ORAL PACKET 1 TAB PO DAILY TERBINAFINE HCL 51433076478 No Longer Active Jillina Frazell ASSISTANT BASKETBALL COACH Active TRILEPTAL 150 MG ORAL TABLET 1 TAB PO Q HS OXCARBAZEPINE 12599588854 No Longer Active Jillina Frazell ASSISTANT BASKETBALL COACH Active BETADINE 10 % EXTERNAL SOLUTION 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 07/29 POVIDONE-IODINE 92076832803 No Longer Active Rober Rodríguez APRN Active NYSTATIN 947146 UNIT/ML MOUTH/THROAT SUSPENSION 5mL po QID x 10 days NYSTATIN 89553566757 No Longer Active Erin Mai APRN Active PREDNISONE 20 MG ORAL TABLET 1 tablet twice daily for 2 days, then 1 tablet once daily for 2 days PREDNISONE 57444503498 No Longer Active Robbie Busby MD Active CEFDINIR 300 MG ORAL CAPSULE Take 1 cap po bid x 10 days CEFDINIR 90624678206 No Longer Active Robbie Busby MD Active AMLODIPINE BESYLATE 10 MG ORAL TABLET 1 tablet by mouth daily AMLODIPINE BESYLATE 75430803726 Active Robbie Busby MD Active CARVEDILOL 25 MG ORAL TABLET 1 & 1/2 TAB po BID CARVEDILOL 22276469137 Active Robbie Busby MD Active NEXIUM 40 MG ORAL CAPSULE DELAYED RELEASE 1 cap by mouth daily ESOMEPRAZOLE MAGNESIUM 68212166009 Active Robbie Busby MD Active PROTONIX 40 MG INTRAVENOUS SOLUTION RECONSTITUTED 1 po qday for acid reflux PANTOPRAZOLE SODIUM 37027603384 No Longer Active Gali Raida Active KEFLEX 500 MG ORAL CAPSULE 1 po TID x 10 days CEPHALEXIN 36064017857 No Longer Active Robbie Busby MD Active ALPRAZOLAM 2 MG ORAL TABLET 1 TAB PO BID ALPRAZOLAM 75965393535 Active Robbie Busby MD Active FENOFIBRATE 145 MG ORAL TABLET Take one by mouth daily FENOFIBRATE 10965253017 No Longer Active Robbie Busby MD Active SPIRONOLACTONE 50 MG ORAL TABLET 1 tablet by mouth twice a day SPIRONOLACTONE 12097912891 No Longer Active Robbie Busby MD Active HYDRALAZINE HCL 25 MG ORAL TABLET 1 tablet by mouth tid for hypertension 2013 HYDRALAZINE HCL 98185119351 No Longer Active Robbie Busby MD Active VIIBRYD 40 MG ORAL TABLET take 1 tab po qday for depression. 2014 VILAZODONE HCL 27814243260 No Longer Active Robbie Busby MD Active TERBINAFINE HCL 250 MG ORAL TABLET 1 tab po qday for foot infection TERBINAFINE HCL 99307730105 No Longer Active Robbie Busby MD Active GABAPENTIN 300 MG ORAL CAPSULE 1 po q hs for nerve pain GABAPENTIN 18073816910 Active Robbie Busby MD Active CHERATUSSIN AC 100-10 MG/5ML ORAL SOLUTION 7.5 mL PO q 4-6 hrs PRN cough 2014 GUAIFENESIN-CODEINE 63564071108 No Longer Active Robbie Busby MD Active AZITHROMYCIN 250 MG ORAL TABLET 2 tablets PO today---then, 1 tablet PO daily x 4 more days (and 1 optional refill) AZITHROMYCIN 68207553212 No Longer Active Robbie Busby MD Active NORVASC 10 MG ORAL TABLET 1 tablet by mouth daily AMLODIPINE BESYLATE 47324155563 No Longer Active Alex ALVAREZ Active ISOSORBIDE DINITRATE 30 MG ORAL TABLET Take one by mouth daily ISOSORBIDE DINITRATE 95995071572 No Longer Active Robbie Busby MD Active VIIBRYD 40 MG ORAL TABLET 1 TA B PO DAILY VILAZODONE HCL 25344327479 Active Robbie Busby MD Active ZITHROMAX 250 MG ORAL TABLET 2 po today, then 1 po q days 2-5 AZITHROMYCIN 88408167431 No Longer Active Robbie Busby MD Active DOXAZOSIN MESYLATE 4 MG ORAL TABLET Take one by mouth daily DOXAZOSIN MESYLATE 50709725842 Active Robbie Busby MD Active VENLAFAXINE HCL ER 150 MG ORAL TABLET EXTENDED RELEASE 24 HOUR Take one by mouth daily VENLAFAXINE HCL 23990390924 Active Robbie Busby MD Active LIPITOR 40 MG ORAL TABLET Take one by mouth daily ATORVASTATIN CALCIUM 21648662823 Active Robbie Busby MD Active ISOSORBIDE DINITRATE 30 MG ORAL TABLET Take one by mouth daily ISOSORBIDE DINITRATE 30 MG ORAL TABLET 755864 ISOSORBIDE DINITRATE Inactive NORVASC 10 MG ORAL TABLET 1 tablet by mouth daily NORVASC 10 MG ORAL TABLET 234397 AMLODIPINE BESYLATE Inactive AZITHROMYCIN 250 MG ORAL TABLET 2 tablets PO today---then, 1 tablet PO daily x 4 more days (and 1 optional refill) AZITHROMYCIN 250 MG ORAL TABLET 194254 AZITHROMYCIN Inactive CHERATUSSIN AC 100-10 MG/5ML ORAL SOLUTION 7.5 mL PO q 4-6 hrs PRN cough 2014 CHERATUSSIN AC 100-10 MG/5ML ORAL SOLUTION 261983 GUAIFENESIN-CODEINE Inactive VIIBRYD 40 MG ORAL TABLET take 1 tab po qday for depression. 2014 VIIBRYD 40 MG ORAL TABLET VILAZODONE HCL Inactive HYDRALAZINE HCL 25 MG ORAL TABLET 1 tablet by mouth tid for hypertension 2013 HYDRALAZINE HCL 25 MG ORAL TABLET 741487 HYDRALAZINE HCL Inactive SPIRONOLACTONE 50 MG ORAL TABLET 1 tablet by mouth twice a day SPIRONOLACTONE 50 MG ORAL TABLET 220827 SPIRONOLACTONE Inactive FENOFIBRATE 145 MG ORAL TABLET Take one by mouth daily FENOFIBRATE 145 MG ORAL TABLET 046025 FENOFIBRATE Inactive PROTONIX 40 MG INTRAVENOUS SOLUTION RECONSTITUTED 1 po qday for acid reflux PROTONIX 40 MG INTRAVENOUS SOLUTION RECONSTITUTED 673370 PANTOPRAZOLE SODIUM Inactive CEFDINIR 300 MG ORAL CAPSULE Take 1 cap po bid x 10 days CEFDINIR 300 MG ORAL CAPSULE 055145 CEFDINIR Inactive PREDNISONE 20 MG ORAL TABLET 1 tablet twice daily for 2 days, then 1 tablet once daily for 2 days PREDNISONE 20 MG ORAL TABLET 603334 PREDNISONE Inactive NYSTATIN 243622 UNIT/ML MOUTH/THROAT SUSPENSION 5mL po QID x 10 days NYSTATIN 286072 UNIT/ML MOUTH/THROAT SUSPENSION 117856 NYSTATIN Inactive BETADINE 10 % EXTERNAL SOLUTION 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 07/29 BETADINE 10 % EXTERNAL SOLUTION 7455698 POVIDONE-IODINE Inactive TRILEPTAL 150 MG ORAL TABLET 1 TAB PO Q HS TRILEPTAL 150 MG ORAL TABLET 473074 OXCARBAZEPINE Inactive LAMISIL 125 MG ORAL PACKET 1 TAB PO DAILY LAMISIL 125 MG ORAL PACKET TERBINAFINE HCL Inactive HYDROCHLOROTHIAZIDE TABLET Take one by mouth daily HYDROCHLOROTHIAZIDE TABLET HYDROCHLOROTHIAZIDE TABS Inactive HYDROCODONE-ACETAMINOPHEN 5-325 MG ORAL TABLET 1 tab by mouth BID prn back pain HYDROCODONE-ACETAMINOPHEN 5-325 MG ORAL TABLET 367421 HYDROCODONE-ACETAMINOPHEN Inactive HYDRALAZINE HCL 50 MG ORAL TABLET TWO BY MOUTH THREE TIMES DAILY HYDRALAZINE HCL 50 MG ORAL TABLET 059478 HYDRALAZINE HCL Inactive LEVAQUIN 500 MG ORAL TABLET 1 tablet by mouth daily for 7 days LEVAQUIN 500 MG ORAL TABLET 314607 LEVOFLOXACIN Inactive SPIRONOLACTONE 25 MG ORAL TABLET 4 tablets by mouth daily SPIRONOLACTONE 25 MG ORAL TABLET 404626 SPIRONOLACTONE Inactive MECLIZINE HCL 25 MG ORAL TABLET one 4 times a day as needed for dizziness MECLIZINE HCL 25 MG ORAL TABLET 661677 MECLIZINE HCL Inactive CLONIDINE HCL 0.2 MG ORAL TABLET 1 TAB BY MOUTH EVERY 8 HOURS CLONIDINE HCL 0.2 MG ORAL TABLET 509980 CLONIDINE HCL Inactive CYCLOBENZAPRINE HCL 10 MG ORAL TABLET 1 tablet by mouth three times daily as needed for muscle spasm/pain for 10 days CYCLOBENZAPRINE HCL 10 MG ORAL TABLET 020517 CYCLOBENZAPRINE HCL Inactive VITAMIN D3 71903 UNIT ORAL CAPSULE 2 CAPS PO WEEKLY VITAMIN D3 17294 UNIT ORAL CAPSULE CHOLECALCIFEROL Inactive FIORICET 50-300-40 MG ORAL CAPSULE take 1 tab po qday prn migraines. FIORICET 50-300-40 MG ORAL CAPSULE 418244 BUTALBITAL-APAP- CAFFEINE Inactive FLONASE 50 MCG/ACT NASAL SUSPENSION 1 spray each nostril twice daily for allergies and runny nose FLONASE 50 MCG/ACT NASAL SUSPENSION 8883341 FLUTICASONE PROPIONATE Inactive LORATADINE 10 MG ORAL TABLET 1 tablet by mouth daily for congestion and allergies. LORATADINE 10 MG ORAL TABLET 875797 LORATADINE Inactive NITROSTAT 0.4 MG SUBLINGUAL TABLET SUBLINGUAL PRN NITROSTAT 0.4 MG SUBLINGUAL TABLET SUBLINGUAL 651880 NITROGLYCERIN Inactive GUAIFENESIN ER 600 MG ORAL TABLET EXTENDED RELEASE 12 HOUR 1 tab po q am 2016 GUAIFENESIN ER 600 MG ORAL TABLET EXTENDED RELEASE 12 HOUR GUAIFENESIN Inactive CYCLOBENZAPRINE HCL 10 MG ORAL TABLET 1 po TID PRN muscle spasm/pain for 10 days CYCLOBENZAPRINE HCL 10 MG ORAL TABLET 574205 CYCLOBENZAPRINE HCL Inactive TOPIRAMATE 50 MG ORAL TABLET take 1 tab po BID for migraines. TOPIRAMATE 50 MG ORAL TABLET 297688 TOPIRAMATE Inactive PREDNISONE 20 MG ORAL TABLET two tabs by mouth today, then one tab by mouth days two and three PREDNISONE 20 MG ORAL TABLET 273605 PREDNISONE Inactive TOPROL XL 200 MG ORAL TABLET EXTENDED RELEASE 24 HOUR Take one by mouth daily TOPROL XL 200 MG ORAL TABLET EXTENDED RELEASE 24 HOUR METOPROLOL SUCCINATE Inactive CYCLOBENZAPRINE HCL 10 MG ORAL TABLET 1 tablet by mouth three times daily as needed for muscle spasm/pain CYCLOBENZAPRINE HCL 10 MG ORAL TABLET 116799 CYCLOBENZAPRINE HCL Inactive TOPIRAMATE 50 MG ORAL TABLET 1 po BID for migraines TOPIRAMATE 50 MG ORAL TABLET 597221 TOPIRAMATE Inactive TEMAZEPAM 15 MG ORAL CAPSULE 1 TAB PO Q HS TEMAZEPAM 15 MG ORAL CAPSULE 524657 TEMAZEPAM Inactive IMDUR 60 MG ORAL TABLET EXTENDED RELEASE 24 HOUR take 1 tab po qday for blood pressure IMDUR 60 MG ORAL TABLET EXTENDED RELEASE 24 HOUR ISOSORBIDE MONONITRATE Inactive [id number] 0.3 MG/24HR TRANSDERMAL PATCH WEEKLY apply 2 patches q week for HTN [id number]-NLT-4 0.3 MG/24HR TRANSDERMAL PATCH WEEKLY 866069 CLONIDINE HCL Inactive ZITHROMAX 250 MG ORAL TABLET 2 po today, then 1 po q days 2-5 ZITHROMAX 250 MG ORAL TABLET 333587 AZITHROMYCIN Inactive TERBINAFINE HCL 250 MG ORAL TABLET 1 tab po qday for foot infection TERBINAFINE HCL 250 MG ORAL TABLET 130872 TERBINAFINE HCL Inactive KEFLEX 500 MG ORAL CAPSULE 1 po TID x 10 days KEFLEX 500 MG ORAL CAPSULE 060273 CEPHALEXIN Inactive BACTRIM DS 800-160 MG ORAL TABLET 1 tab by mouth twice daily 2015 BACTRIM DS 800-160 MG ORAL TABLET 679335 TRIMETHOPRIM- SULFAMETHOXAZOLE Inactive PREDNISONE 20 MG ORAL TABLET take 3 tabs daily for 3 days, 2 tabs daily for 3 days, 1 tab daily for 3 days, 1/2 tab daily for 4 days PREDNISONE 20 MG ORAL TABLET 500116 PREDNISONE Inactive AZITHROMYCIN 250 MG ORAL TABLET 2 po qd x 1 day, then 1 po qd x 4 days 09/20 AZITHROMYCIN 250 MG ORAL TABLET 439335 AZITHROMYCIN Inactive SINGULAIR 10 MG ORAL TABLET 1 po qday for allergies. SINGULAIR 10 MG ORAL TABLET 956708 MONTELUKAST SODIUM Inactive Advance Directives Directive Description [...] Measured blood pressure, diastolic 110 mm[Hg] BP edl rio blood pressure, systolic 187 mm[Hg] BP [...] AUTO - Chemistry sodium, serum 142 mmol/L 930-924 3040/07/17 carbon dioxide, venous blood 28.2 mmol/L 21.0-32.0 [...] Panel - Chemistry sodium, serum 141 mmol/L 203-055 6541/02/13 carbon dioxide, venous blood 23.9 mmol/L 21.0-32.0 [...] 6.9 % 4.3-6.0 sodium, serum 139 mmol/L 524-504 9745/01/04 potassium, serum 3.9 mmol/L 3.5-5.2 chloride, serum [...] 1.80 ng/mL 0.00-4.00 Lab Report: VITAMIN D, 25-HYDROXY/15818 - Chemistry vitamin D 25-hydroxy, serum 25 ng/mL 30-100 Encounters Code Encounter Date Provider Facility CPT-41562 Level 3 Est. Patient 16:04:17 CDT Robbie Busby MD [facility] CPT-90499 Level 4 Est. Patient 09:50:01 [employer]EW[employer] Robbie Busby MD [facility] CPT-80033 Level 4 Est. Patient 09:42:08 [employer] Robbie Busby MD [facility] CPT-37364 Level 4 Est. Patient 13:07:39 [employer] Robbie Busby MD [facility] CPT-64827 Level 4 Est. Patient 15:23:44 [employer] Desmond Diaz DO [facility] CPT-35586 Level 3 Est. Patient 15:40:49 CDT Robbie Busby MD [facility] CPT-37866 Level 4 Est. Patient 15:18:19 CDT Robbie Busby MD [facility] CPT-67744 Level 3 Est. Patient 09:00:37 CDT Rober Rodolfoneha [facility] CPT-76598 Level 3 Est. Patient 16:07:10 CDT Robbie Busby MD [facility] CPT-72217 Level 4 Est. Patient 11:56:16 CDT Erin Miguelzane [facility] CPT-25596 Level 3 Est. Patient 17:48:02 CDT Robbie Busby MD [facility] CPT-01466 Level 4 Est. Patient 12:00:49 [employer] Rober Rodríguez [facility] CPT-22907 Level 3 Est. Patient 09:16:37 CDT Robbie Busby MD [facility] CPT-44838 Level 3 Est. Patient 19:38:43 CDT Robbie Busby MD [facility] CPT-06313 Level 3 Est. Patient 11:53:38 CDT Robbie Busby MD [facility] CPT-94025 Level 4 Est. Patient 12:52:22 CDT Rober Rodríguez [facility] CPT-06405 Level 4 Est. Patient 22:55:17 CDT Robbie Busby MD [facility] CPT-40530 Level 3 Est. Patient 12:38:24 CDT Desmond Diaz DO [facility] CPT-49709 Level 4 Est. Patient 11:25:03 [employer] Robbie Busby MD [facility] CPT-27406 Level 4 Est. Patient 14:50:10 CDT Robbie Busby MD [facility] CPT-73963 Level 4 Est. Patient 23:30:43 CDT Robbie Busby MD [facility] CPT-76297 Level 4 Est. Patient 10:30:43 CDT Robbie Busby MD [facility] CPT-46256 Level 3 Est. Patient 17:08:12 CDT Alex ALVAREZ [facility] CPT-78328 Level 4 Est. Patient 17:51:38 CDT Robbie Busby MD [facility] CPT-38800 Level 4 Est. Patient 14:00:21 CDT Robbie Busby MD [facility] CPT-80585 Level 4 Est. Patient 12:46:48 CDT Robbie Busby MD [facility] CPT-33584 Level 4 Est. Patient 13:34:33 CDT Robbie Busby MD [facility] CPT-92712 Level 4 Est. Patient 16:58:28 CDT Robbie Busby MD [facility] CPT-33014 Level 3 Est. Patient 19:36:53 CDT Alex Shaw [facility] CPT-14509 Level 3 Est. Patient 12:58:15 CDT Robbie Busby MD [facility] Procedures Code Procedure Name Date Entry Date Standard Description CPT-J1100 Decadron 8mg (Dexamethasone) 16:04:17 CDT CPT-J1040 Depo Medrol 80 mg (Methyl Prednisolone Acetate) 16:04: 17 CDT CPT-J1071 Depo Testosterone 200mg 08:56:46 CDT CPT-82805 Abx/Therapy Injection 08:56:45 CDT CPT-J1071 Depo Testosterone 200mg 08:26:27 CDT CPT-49578 Abx/Therapy Injection 08:26:27 CDT CPT-J1071 Depo Testosterone 200mg 10:27:10 CDT CPT-12525 Abx/Therapy Injection 10:27:10 CDT CPT-J1071 Depo Testosterone 200mg 16:10:29 [employer] STEWARD CPT-14144 Abx/Therapy Injection 16:10:29 [employer] STEWARD CPT-J1071 Depo Testosterone 200mg 16:13:47 [employer]EW[employer] CPT-07558 Abx/Therapy Injection 16:13:46 [employer] STEWARD CPT-J1071 Depo Testosterone 200mg 15:33:58 [employer]EW[employer] CPT-74275 Abx/Therapy Injection 15:33:58 [employer]EW[employer] CPT-J1071 Depo Testosterone 200mg 09:38:36 [employer] CPT-74512 Abx/Therapy Injection 09:38:36 [employer]EW[employer] CPT-J1071 Depo Testosterone 200mg 10:22:56 [employer] CPT-04605 Abx/Therapy Injection 10:22:56 [employer]EW[employer] CPT-J1071 Depo Testosterone 200mg 15:40:23 CDT CPT-55471 Abx/Therapy Injection 15:40:23 CDT CPT-J1071 Depo Testosterone 200mg 14:20:43 CDT CPT-13847 Abx/Therapy Injection 14:20:43 CDT CPT-J1071 Depo Testosterone 200mg 14:17:22 CDT CPT-39840 Abx/Therapy Injection 14:17:22 CDT CPT-J1071 Depo Testosterone 200mg 09:03:53 CDT CPT-60854 Abx/Therapy Injection 09:03:53 CDT CPT-G0439 Subsequent Annual Wellness Exam 16:47:44 CDT CPT-J1071 Depo Testosterone 200mg 09:06:28 CDT CPT-88589 Abx/Therapy Injection 09:06:28 CDT CPT-J1071 Depo Testosterone 200mg 08:30:01 CDT CPT-23590 Abx/Therapy Injection 08:30:01 CDT CPT-J1071 Depo Testosterone 200mg 08:24:00 CDT CPT-87908 Abx/Therapy Injection 08:24:00 CDT CPT-32615 Venipuncture Draw Fee 14:39:06 CDT CPT-86065 Ribs unilateral 2V - XRAY USE ONLY 12:10:11 CDT CPT-97607 First Vx - Ix admin for Medicare patients 16:32:53 CDT CPT-29184 Boostrix Intramuscular Suspension 5-2.5-18.5 16:32:53 CDT CPT-73507 TB Skin Test 11:42:28 CDT CPT-68574 Tdap 7yrs or > 11:42:28 CDT CPT-J0696 Rocephin 1000 mg (Ceftriaxone) 17:43:43 [employer]EW[employer] CPT-J1040 Depo Medrol 80 mg (Methyl Prednisolone Acetate) 17:43: 43 [employer]EW[employer] CPT-J1100 Decadron 8mg (Dexamethasone) 17:43:42 [employer] STEWARD CPT-51595 Abx/Therapy Injection 17:43:42 [employer]ETRACK STEWARD CPT-53236 Abx/Therapy Injection 17:43:42 [employer]ETRACK STEWARD CPT-J1040 Depo Medrol 80 mg (Methyl Prednisolone Acetate) 09:43: 34 [employer]ETRACK STEWARD CPT-J1100 Decadron 8mg (Dexamethasone) 09:43:34 [employer]ETRACK STEWARD CPT-J0696 Rocephin 1gm Inj Solr 09:43:34 [employer]ETRACK STEWARD CPT-61421 Wound Culture - LAB USE ONLY 14:00:21 CDT CPT-I/D I/D Abscess 09:16:37 CDT CPT-45089 Venipuncture Draw Fee 15:20:23 CDT CPT-60816 Microalbumin - LAB USE ONLY 16:02:19 CDT CPT-58899 CBC - LAB USE ONLY 16:02:19 CDT CPT-57313 Venipuncture Draw Fee 16:02:19 CDT CPT-G0438 Initial Annual Wellness Exam 08:10:28 CDT CPT-51059 Venipuncture Draw Fee 13:07:17 CDT CPT-G0008 Administration of Influenza Virus Vaccine 16:09:59 CDT CPT-47029 Fluzone Quadrivalent Intramuscular Suspension 0.5 ML 16: 09:59 CDT CPT-06834 Spec Collection and Handling Fee 15:05:50 CDT
--- OUTSIDE RECORDS SUMMARY | 2018-04-18 11:39 | XMS REPORT | Clinical Summary ---
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 Rober Rodríguez [employer] Other malignant secondary hypertension Tachycardia 785.0 Active [...] by mouth daily for 7 days LEVOFLOXACIN 54721294669 Active Erin Garsia APRN Active BACTRIM DS 800-160 MG TAB 1 tab by mouth twice daily TRIMETHOPRIM-SULFAMETHOXAZOLE 60546777205 No Longer Active Robbie Busby MD Active SPIRONOLACTONE 25 MG TAB 4 tablets by mouth daily SPIRONOLACTONE 11653216508 Active Robbie Busby MD Active HYDRALAZINE HCL 50 MG ORAL TABS TWO BY MOUTH THREE TIMES DAILY HYDRALAZINE HCL 25222520389 No Longer Active Andrellina Zulemal [employer] Active HYDROCODONE-ACETAMINOPHEN 5-325 MG TABS 1 tab by mouth BID prn back pain 2013 HYDROCODONE-ACETAMINOPHEN 23380377037 No Longer Active Jillina Frazell [employer] Active HYDROCHLOROTHIAZIDE TABS Take one by mouth daily HYDROCHLOROTHIAZIDE TABS 82344675844 No Longer Active Jillina Frazell [employer] Active LAMISIL 125 MG ORAL PACK 1 TAB PO DAILY TERBINAFINE HCL 20010548369 No Longer Active Jillina Frazell [employer] Active TRILEPTAL 150 MG ORAL TABS 1 TAB PO Q HS OXCARBAZEPINE 74566942774 No Longer Active Jillina Frazell [employer] Active BETADINE 10 % EXT SOLN 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 POVIDONE-IODINE 67957437128 No Longer Active Jillina Frazell [employer] Active NYSTATIN 698703 UNIT/ML M/T SUSP 5mL po QID x 10 days NYSTATIN 80763312306 No Longer Active Erin Garsia APRN Active PREDNISONE 20 MG TAB 1 tablet twice daily for 2 days, then 1 tablet once daily for 2 days PREDNISONE 33437694985 No Longer Active Robbie Busby MD Active CEFDINIR 300 MG ORAL CAPS Take 1 cap po bid x 10 days CEFDINIR 10127188150 No Longer Active Robbie Busby MD Active AMLODIPINE BESYLATE 10 MG TABS 1 tablet by mouth daily AMLODIPINE BESYLATE 25106740599 Active Robbie Busby MD Active CARVEDILOL 25 MG TABS 1 & 1/2 TAB po BID CARVEDILOL 41234057606 Active Erin Garsia APRN Active VITAMIN D3 21966 UNIT CAPS 2 CAPS PO WEEKLY CHOLECALCIFEROL 65122247992 Active Erin Garsia APRN Active NEXIUM 40 MG CPDR 1 cap by mouth daily ESOMEPRAZOLE MAGNESIUM 82344191965 Active Robbie Busby MD Active PROTONIX 40 MG SOLR 1 po qday for acid reflux PANTOPRAZOLE SODIUM 58525706103 No Longer Active Gali Raida Active KEFLEX 500 MG CAP 1 po TID x 10 days CEPHALEXIN 07142022475 No Longer Active Robbie Busby MD Active FIORICET 50-300-40 MG ORAL CAPS take 1 tab po qday prn migraines. [id number] 32893682506 Active Robbie Busby MD Active TOPIRAMATE 50 MG ORAL TABS take 1 tab po BID for migraines. TOPIRAMATE 87217917131 Active Robbie Busby MD Active MECLIZINE HCL 25 MG TAB one 4 times a day as needed for dizziness MECLIZINE HCL 94107997380 Active Robbie Busby MD Active TEMAZEPAM 15 MG ORAL CAPS 1 TAB PO Q HS TEMAZEPAM 96872991136 Active Robbie Busby MD Active ALPRAZOLAM 2 MG ORAL TABS 1 TAB PO BID ALPRAZOLAM 11043143891 Active Robbie Busby MD Active FENOFIBRATE 145 MG TABS Take one by mouth daily FENOFIBRATE 27634783632 No Longer Active Robbie Busby MD Active SPIRONOLACTONE 50 MG TABS 1 tablet by mouth twice a day SPIRONOLACTONE 66134355917 No Longer Active Robbie Busby MD Active HYDRALAZINE HCL 25 MG TABS 1 tablet by mouth tid for hypertension HYDRALAZINE HCL 41305495186 No Longer Active Robbie Busby MD Active VIIBRYD 40 MG TABS take 1 tab po qday for depression. VILAZODONE HCL 24654428572 No Longer Active Robbie Busby MD Active TERBINAFINE HCL 250 MG TABS 1 tab po qday for foot infection 2014 TERBINAFINE HCL 63826357119 No Longer Active Robbie Busby MD Active GABAPENTIN 300 MG CAPS 1 po q hs for nerve pain GABAPENTIN 39415705840 Active Robbie Busby MD Active FLONASE 50 MCG/ACT SUSP 1 spray each nostril twice daily for allergies and runny nose FLUTICASONE PROPIONATE 35478965969 Active Robbie Busby MD Active CHERATUSSIN AC 100-10 MG/5ML ORAL SOLN 7.5 mL PO q 4-6 hrs PRN cough GUAIFENESIN-CODEINE 75844506836 No Longer Active Robbie Busby MD Active AZITHROMYCIN 250 MG ORAL TABS 2 tablets PO today---then, 1 tablet PO daily x 4 more days (and 1 optional refill) AZITHROMYCIN 43916771043 No Longer Active Robbie Busby MD Active CLONIDINE HCL 0.2 MG ORAL TABS 1 TAB BY MOUTH EVERY 8 HOURS CLONIDINE HCL 49293033287 Active Robbie Busby MD Active NORVASC 10 MG TAB 1 tablet by mouth daily AMLODIPINE BESYLATE 24348950738 No Longer Active Alex ALVAREZ Active IMDUR 60 MG TAB CR take 1 tab po qday for blood pressure ISOSORBIDE MONONITRATE Active Robbie Busby MD Active ISOSORBIDE DINITRATE 30 MG TABS Take one by mouth daily ISOSORBIDE DINITRATE 59089244272 No Longer Active Robbie Busby MD Active VIIBRYD 40 MG TABS 1 TA B PO DAILY VILAZODONE HCL 49112607907 Active Robbie Busby MD Active LORATADINE 10 MG TABS 1 tablet by mouth daily for congestion and allergies. LORATADINE 71650620547 Active Robbie Busby MD Active ZITHROMAX 250 MG TAB 2 po today, then 1 po q days 2-5 AZITHROMYCIN 93059097144 No Longer Active Robbie Busby MD Active [id number] 0.3 MG/24HR PTWK apply 2 patches q week for HTN CLONIDINE HCL 32446457243 Active Robbie Busby MD Active NITROSTAT 0.4 MG SUBL PRN NITROGLYCERIN 49794917717 Active Robbie Busby MD Active DOXAZOSIN MESYLATE 4 MG TABS Take one by mouth daily DOXAZOSIN MESYLATE 30344358802 Active Erin Garsia APRN Active TOPROL XL 200 MG [id number] Take one by mouth daily METOPROLOL SUCCINATE 74625347618 Active Robbie Busby MD Active VENLAFAXINE HCL ER 150 MG [id number] Take one by mouth daily VENLAFAXINE HCL 61944553705 Active Robbie Busby MD Active LIPITOR 40 MG TABS Take one by mouth daily ATORVASTATIN CALCIUM 45070209926 Active Robbie Busby MD Active ISOSORBIDE DINITRATE 30 MG TABS Take one by mouth daily ISOSORBIDE DINITRATE 30 MG TABS 376316 ISOSORBIDE DINITRATE Inactive NORVASC 10 MG TAB 1 tablet by mouth daily NORVASC 10 MG TAB 761977 AMLODIPINE BESYLATE Inactive AZITHROMYCIN 250 MG ORAL TABS 2 tablets PO today---then, 1 tablet PO daily x 4 more days (and 1 optional refill) AZITHROMYCIN 250 MG ORAL TABS 9402091 AZITHROMYCIN Inactive CHERATUSSIN AC 100-10 MG/5ML ORAL SOLN 7.5 mL PO q 4-6 hrs PRN cough CHERATUSSIN AC 100-10 MG/5ML ORAL SOLN 447869 GUAIFENESIN- CODEINE Inactive VIIBRYD 40 MG TABS take 1 tab po qday for depression. VIIBRYD 40 MG TABS VILAZODONE HCL Inactive HYDRALAZINE HCL 25 MG TABS 1 tablet by mouth tid for hypertension HYDRALAZINE HCL 25 MG TABS 525185 HYDRALAZINE HCL Inactive SPIRONOLACTONE 50 MG TABS 1 tablet by mouth twice a day SPIRONOLACTONE 50 MG TABS 088350 SPIRONOLACTONE Inactive FENOFIBRATE 145 MG TABS Take one by mouth daily FENOFIBRATE 145 MG TABS 772682 FENOFIBRATE Inactive PROTONIX 40 MG SOLR 1 po qday for acid reflux PROTONIX 40 MG SOLR 456899 PANTOPRAZOLE SODIUM Inactive CEFDINIR 300 MG ORAL CAPS Take 1 cap po bid x 10 days CEFDINIR 300 MG ORAL CAPS 101199 CEFDINIR Inactive PREDNISONE 20 MG TAB 1 tablet twice daily for 2 days, then 1 tablet once daily for 2 days PREDNISONE 20 MG TAB 840199 PREDNISONE Inactive NYSTATIN 909496 UNIT/ML M/T SUSP 5mL po QID x 10 days NYSTATIN 168347 UNIT/ML M/T SUSP 611407 NYSTATIN Inactive BETADINE 10 % EXT SOLN 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 BETADINE 10 % EXT SOLN 6287932 POVIDONE-IODINE Inactive TRILEPTAL 150 MG ORAL TABS 1 TAB PO Q HS TRILEPTAL 150 MG ORAL TABS 750474 OXCARBAZEPINE Inactive LAMISIL 125 MG ORAL PACK 1 TAB PO DAILY LAMISIL 125 MG ORAL PACK TERBINAFINE HCL Inactive HYDROCHLOROTHIAZIDE TABS Take one by mouth daily HYDROCHLOROTHIAZIDE TABS HYDROCHLOROTHIAZIDE TABS Inactive HYDROCODONE-ACETAMINOPHEN 5-325 MG TABS 1 tab by mouth BID prn back pain 2013 HYDROCODONE-ACETAMINOPHEN 5-325 MG TABS 499223 HYDROCODONE -ACETAMINOPHEN Inactive HYDRALAZINE HCL 50 MG ORAL TABS TWO BY MOUTH THREE TIMES DAILY HYDRALAZINE HCL 50 MG ORAL TABS 835884 HYDRALAZINE HCL Inactive ZITHROMAX 250 MG TAB 2 po today, then 1 po q days 2-5 ZITHROMAX 250 MG TAB 4064591 AZITHROMYCIN Inactive TERBINAFINE HCL 250 MG TABS 1 tab po qday for foot infection 2014 TERBINAFINE HCL 250 MG TABS 188621 TERBINAFINE HCL Inactive KEFLEX 500 MG CAP 1 po TID x 10 days KEFLEX 500 MG CAP 217823 CEPHALEXIN Inactive BACTRIM DS 800-160 MG TAB 1 tab by mouth twice daily BACTRIM DS 800-160 MG TAB 382108 TRIMETHOPRIM-SULFAMETHOXAZOLE Inactive Advance Directives Directive Description Start [...] Acid - Chemistry sodium, serum 139 mmol/L 853-744 5872/04/22 carbon dioxide, venous blood 29.4 mmol/L 21.0-32.0 [...] to Follow Negative Lab Report: VITAMIN D, 25-HYDROXY/25094 - Chemistry vitamin D 25-hydroxy, serum 23 ng/mL 30-100 Encounters Code Encounter Date Provider Facility CPT-59665 Level 4 Est. Patient 12:00:49 [employer] Rober Rodríguez APRN [facility] CPT-77737 Level 3 Est. Patient 09:16:37 CDT Robbie Busby MD [facility] CPT-78102 Level 3 Est. Patient 19:38:43 CDT Robbie Busby MD [facility] CPT-50924 Level 3 Est. Patient 11:53:38 CDT Robbie Busby MD [facility]-74289 Level 4 Est. Patient 12:52:22 CDT Rober Rodríguez APRN [facility] CPT-74954 Level 4 Est. Patient 22:55:17 CDT Robbie Busby MD [facility]-24692 Level 3 Est. Patient 12:38:24 CDT Desmond Diaz DO [facility] CPT-76614 Level 4 Est. Patient 11:25:03 [employer] Robbie Busby MD [facility]-58832 Level 4 Est. Patient 14:50:10 CDT Robbie Busby MD [facility] CPT-32651 Level 4 Est. Patient 23:30:43 CDT Robbie Busby MD [facility] CPT-95243 Level 4 Est. Patient 10:30:43 CDT Robbie Busby MD [facility] CPT-83646 Level 3 Est. Patient 17:08:12 CDT Alex ALVAREZ [facility] CPT-70495 Level 4 Est. Patient 17:51:38 CDT Robbie Busby MD [facility] CPT-04011 Level 4 Est. Patient 14:00:21 CDT Robbie Busby MD [facility] CPT-40622 Level 4 Est. Patient 12:46:48 CDT Robbie Busby MD [facility]-60671 Level 4 Est. Patient 13:34:33 CDT Robbie Busby MD [facility] CPT-80931 Level 4 Est. Patient 16:58:28 CDT Robbie Busby MD [facility] CPT-96401 Level 3 Est. Patient 19:36:53 CDT Alex ALVAREZ [facility] CPT-68771 Level 3 Est. Patient 12:58:15 CDT Robbie Busby MD [facility] Procedures Code Procedure Name Date Entry Date Standard Description CPT-J0696 Rocephin 1000 mg (Ceftriaxone) 17:43:43 [employer] CPT-J1040 Depo Medrol 80 mg (Methyl Prednisolone Acetate) 17:43: 43 [employer] CPT-J1100 Decadron 8mg (Dexamethasone) 17:43:42 [employer] CPT-50379 Abx/Therapy Injection 17:43:42 [employer] CPT-66855 Abx/Therapy Injection 17:43:42 [employer] CPT-J1040 Depo Medrol 80 mg (Methyl Prednisolone Acetate) 09:43: 34 [employer] CPT-J1100 Decadron 8mg (Dexamethasone) 09:43:34 [employer] CPT-J0696 Rocephin 1gm Inj Solr 09:43:34 [employer] CPT-65082 Wound Culture - LAB USE ONLY 14:00:21 CDT CPT-I/D I/D Abscess 09:16:37 CDT CPT-20714 Venipuncture Draw Fee 15:20:23 CDT CPT-97136 Microalbumin - LAB USE ONLY 16:02:19 CDT CPT-25616 CBC - LAB USE ONLY 16:02:19 CDT CPT-87707 Venipuncture Draw Fee 16:02:19 CDT CPT-G0438 Initial Annual Wellness Exam 08:10:28 CDT CPT-79710 Venipuncture Draw Fee 13:07:17 CDT CPT-G0008 Administration of Influenza Virus Vaccine 16:09:59 CDT CPT-33701 Fluzone Quadrivalent Intramuscular Suspension 0.5 ML 16: 09:59 CDT CPT-73201 Spec Collection and Handling Fee 15:05:50 CDT
--- OUTSIDE RECORDS SUMMARY | 2018-04-18 11:40 | XMS REPORT | Clinical Summary ---
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 Desmond Diaz DO Other malignant secondary hypertension Tachycardia 785.0 Active Rober Rodríguez [employer] STE[employer] EQUIPMENT ERECTOR Tachycardia, unspecified Insect bite, infected 919.5 Resolved Desmond Diaz DO Insect bite, nonvenomous, of other, multiple, and unspecified sites, infected Abscess, skin 682.9 Resolved Desmond Diaz DO Cellulitis and abscess of unspecified sites URI 465.9 Resolved Desmond Diaz DO Acute upper respiratory infections of unspecified site Hypertension 401.9 Active Rober Rodríguez [employer] EQUIPMENT E[employer]OR Unspecified essential hypertension Sinusitis - acute 461.9 [...] Hypogonadism, low testosterone 257.2 Active Erin Mai [employer] STE[employer] EQUIPMENT ERECTOR Other testicular hypofunction Low back pain, chronic [...] unspecified site Sinusitis ICD-461.9 Inactive Emily Atwood MAINTENANCE AND OPERATIONS SUPERVISOR 2017 Low back pain, acute ICD-724.2 Inactive Emily Atwood MAINTENANCE AND OPERATIONS SUPERVISOR Low back pain, chronic ICD-724.2 Inactive Emily Atwood MAINTENANCE AND OPERATIONS SUPERVISOR Bronchitis, acute ICD-466.0 Inactive Emily Atwood MAINTENANCE AND OPERATIONS SUPERVISOR Onychomycosis, toenails ICD-110.1 Inactive Emily Atwood MAINTENANCE AND OPERATIONS SUPERVISOR Dizziness ICD-780.4 Inactive Emily Atwood MAINTENANCE AND OPERATIONS SUPERVISOR 2017 Folliculitis ICD-704.8 Inactive Emily Atwood MAINTENANCE AND OPERATIONS SUPERVISOR Pharyngitis-Acute ICD-462 Inactive Emily Atwood MAINTENANCE AND OPERATIONS SUPERVISOR Fatigue ICD-780.79 Inactive Emily Atwood MAINTENANCE AND OPERATIONS SUPERVISOR 09/20 Hypertension, secondary, malignant ICD-405.09 Inactive Emily Atwood MAINTENANCE AND OPERATIONS SUPERVISOR Insect bite, infected ICD-919.5 Inactive Emily Atwood MAINTENANCE AND OPERATIONS SUPERVISOR Abscess, skin ICD-682.9 Inactive Emily Atwood MAINTENANCE AND OPERATIONS SUPERVISOR URI ICD-465.9 Inactive Emily Atwood MAINTENANCE AND OPERATIONS SUPERVISOR Sinusitis - acute ICD-461.9 Inactive Emily Atwood MAINTENANCE AND OPERATIONS SUPERVISOR Acute confusion ICD-293.0 Inactive Emily Atwood MAINTENANCE AND OPERATIONS SUPERVISOR Headache ICD-784.0 Inactive Emily Atwood MAINTENANCE AND OPERATIONS SUPERVISOR 09/20 Back pain ICD-724.5 Inactive Emily Atwood MAINTENANCE AND OPERATIONS SUPERVISOR 2017 Rib pain, right sided ICD-786.50 Inactive Emily Atwood MAINTENANCE AND OPERATIONS SUPERVISOR Myalgias ICD-729.1 Inactive Emily Atwood MAINTENANCE AND OPERATIONS SUPERVISOR 09/20 URI ICD-465.9 Inactive Emily Atwood MAINTENANCE AND OPERATIONS SUPERVISOR Bronchitis-Acute ICD-466.0 Inactive Desmond Diaz DO Medication List Medication Instructions Start Date Stop Date Generic Name NDC Status Provider Patient Instruction PREDNISONE 20 MG ORAL TABLET 2 po qd x 5 days PREDNISONE 89081998480 Active Renny Bella MD Active PROMETHAZINE-CODEINE 6.25-10 MG/5ML ORAL SYRUP 5ml po q6hr PRN Cough PROMETHAZINE-CODEINE 99929184532 Active Renny Bella MD Active MONTELUKAST SODIUM 10 MG ORAL TABLET 1 tab po daily for allergies MONTELUKAST SODIUM 36898818141 Active JONATHAN Moncada Active IMDUR 60 MG ORAL TABLET EXTENDED RELEASE 24 HOUR 1 po q day ISOSORBIDE MONONITRATE 38945630084 Active Emma Hernandez Active METOPROLOL SUCCINATE ER 200 MG ORAL TABLET EXTENDED RELEASE 24 HOUR take 1 tab po qday for high blood pressure and rapid pulse METOPROLOL SUCCINATE 93514654786 Active Robbie Busby MD Active [id number]-3 0.3 MG/24HR TRANSDERMAL PATCH WEEKLY apply 2 patches q week for HTN CLONIDINE HCL 08140146336 No Longer Active Robbie Busby MD Active IMDUR 60 MG ORAL TABLET EXTENDED RELEASE 24 HOUR take 1 tab po qday for blood pressure ISOSORBIDE MONONITRATE 13689152280 No Longer Active Robbie Busby MD Active TEMAZEPAM 15 MG ORAL CAPSULE 1 TAB PO Q HS TEMAZEPAM 99085921673 No Longer Active Robbie Busby MD Active TOPIRAMATE 50 MG ORAL TABLET 1 po BID for migraines TOPIRAMATE 87302997078 No Longer Active Robbie Busby MD Active CYCLOBENZAPRINE HCL 10 MG ORAL TABLET 1 tablet by mouth three times daily as needed for muscle spasm/pain CYCLOBENZAPRINE HCL 81723023962 No Longer Active Robbie Busby MD Active TOPROL XL 200 MG ORAL TABLET EXTENDED RELEASE 24 HOUR Take one by mouth daily METOPROLOL SUCCINATE 99957922499 No Longer Active Robbie Busby MD Active METFORMIN HCL 500 MG ORAL TABLET 1 tablet by mouth daily for diabetes type 2 METFORMIN HCL 37332359423 Active Robbie Busby MD Active SINGULAIR 10 MG ORAL TABLET 1 po qday for allergies. MONTELUKAST SODIUM 04744637744 No Longer Active Robbie Busby MD Active PREDNISONE 20 MG ORAL TABLET two tabs by mouth today, then one tab by mouth days two and three PREDNISONE 02387782264 No Longer Active Robbie Busby MD Active AZITHROMYCIN 250 MG ORAL TABLET 2 po qd x 1 day, then 1 po qd x 4 days 09/20 AZITHROMYCIN 69195084796 No Longer Active Desmond Diaz DO Active TOPIRAMATE 50 MG ORAL TABLET take 1 tab po BID for migraines. TOPIRAMATE 33831790368 No Longer Active Desmond Diaz DO Active CYCLOBENZAPRINE HCL 10 MG ORAL TABLET 1 po TID PRN muscle spasm/pain for 10 days CYCLOBENZAPRINE HCL 59207565532 No Longer Active Desmond Diaz DO Active GUAIFENESIN ER 600 MG ORAL TABLET EXTENDED RELEASE 12 HOUR 1 tab po q am 2016 GUAIFENESIN 33088706385 No Longer Active Robbie Busby MD Active DIVALPROEX SODIUM ER 500 MG ORAL TABLET EXTENDED RELEASE 24 HOUR Once daily DIVALPROEX SODIUM 28741072473 Active Robbie Busby MD Active DEPO-TESTOSTERONE 200 MG/ML INTRAMUSCULAR SOLUTION 1 IM Injections every 2 weeks for low testosterone TESTOSTERONE CYPIONATE 72054420898 Active Zulema Blank LPN Active FLUTICASONE PROPIONATE 50 MCG/ACT NASAL SUSPENSION 2 sprays per nostril bid for 1 week, then 1 spray bid FLUTICASONE PROPIONATE 13410462824 Active Jillld Rodríguez APRN Active HYDRALAZINE HCL 25 MG ORAL TABLET Take 1 tab BID. HYDRALAZINE HCL 41292718175 Active Jillld Rodríguez APRN Active VITAMIN D3 66758 UNIT ORAL TABLET 2 po weekly CHOLECALCIFEROL 80602257770 Active Robbie Busby MD Active OXYCODONE HCL ER 10 MG ORAL TABLET ER 12 HOUR ABUSE-DETERRENT 1 tab po 3 times qd. OXYCODONE HCL 23275504676 Active Robbie Busby MD Active NITROSTAT 0.4 MG SUBLINGUAL TABLET SUBLINGUAL PRN NITROGLYCERIN 75859393472 No Longer Active Robbie Busby MD Active LORATADINE 10 MG ORAL TABLET 1 tablet by mouth daily for congestion and allergies. LORATADINE 83122714830 No Longer Active Robbie Busby MD Active FLONASE 50 MCG/ACT NASAL SUSPENSION 1 spray each nostril twice daily for allergies and runny nose FLUTICASONE PROPIONATE 72285390969 No Longer Active Robbie Busby MD Active FIORICET 50-300-40 MG ORAL CAPSULE take 1 tab po qday prn migraines. [id number] 26364580198 No Longer Active Robbie Busby MD Active VITAMIN D3 77209 UNIT ORAL CAPSULE 2 CAPS PO WEEKLY CHOLECALCIFEROL 47352695302 No Longer Active Robbie Busby MD Active CYCLOBENZAPRINE HCL 10 MG ORAL TABLET 1 tablet by mouth three times daily as needed for muscle spasm/pain for 10 days CYCLOBENZAPRINE HCL 79328652218 No Longer Active Robbie Busby MD Active PREDNISONE 20 MG ORAL TABLET take 3 tabs daily for 3 days, 2 tabs daily for 3 days, 1 tab daily for 3 days, 1/2 tab daily for 4 days PREDNISONE 05649797648 No Longer Active Erin Arell [employer]UCTURAL STEEL EQUIPMENT ERECTOR Active CLONIDINE HCL 0.2 MG ORAL TABLET 1 TAB BY MOUTH EVERY 8 HOURS CLONIDINE HCL 84683156734 No Longer Active Erin Arell [employer]UCTURAL STEEL EQUIPMENT ERECTOR Active MECLIZINE HCL 25 MG ORAL TABLET one 4 times a day as needed for dizziness MECLIZINE HCL 35363017042 No Longer Active Erin Arell [employer]UCTURAL STEEL EQUIPMENT ERECTOR Active SPIRONOLACTONE 25 MG ORAL TABLET 4 tablets by mouth daily SPIRONOLACTONE 96025091758 No Longer Active Erin Arell [employer]UCTURAL STEEL EQUIPMENT ERECTOR Active LEVAQUIN 500 MG ORAL TABLET 1 tablet by mouth daily for 7 days LEVOFLOXACIN 97674808590 No Longer Active Erin Arell [employer]UCTURAL STEEL EQUIPMENT ERECTOR Active BACTRIM DS 800-160 MG ORAL TABLET 1 tab by mouth twice daily 2015 TRIMETHOPRIM-SULFAMETHOXAZOLE 08024836952 No Longer Active Robbie Busby MD Active HYDRALAZINE HCL 50 MG ORAL TABLET TWO BY MOUTH THREE TIMES DAILY HYDRALAZINE HCL 51144008860 No Longer Active Rober Rodríguez APRN Active HYDROCODONE-ACETAMINOPHEN 5-325 MG ORAL TABLET 1 tab by mouth BID prn back pain HYDROCODONE-ACETAMINOPHEN 06664595760 No Longer Active Rober Rodríguez APRN Active HYDROCHLOROTHIAZIDE TABLET Take one by mouth daily HYDROCHLOROTHIAZIDE TABS 83206142971 No Longer Active Jillina Frazell STRUCTURAL STEEL EQUIPMENT ERECTOR Active LAMISIL 125 MG ORAL PACKET 1 TAB PO DAILY TERBINAFINE HCL 48940973671 No Longer Active Jillina Frazell STRUCTURAL STEEL EQUIPMENT ERECTOR Active TRILEPTAL 150 MG ORAL TABLET 1 TAB PO Q HS OXCARBAZEPINE 08260214541 No Longer Active Jillina Frazell STRUCTURAL STEEL EQUIPMENT ERECTOR Active BETADINE 10 % EXTERNAL SOLUTION 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 07/29 POVIDONE-IODINE 62558510535 No Longer Active Jillina Frazell [employer]UCTURAL STEEL EQUIPMENT ERECTOR Active NYSTATIN 297901 UNIT/ML MOUTH/THROAT SUSPENSION 5mL po QID x 10 days NYSTATIN 75052669509 No Longer Active Erin Mai APRN Active PREDNISONE 20 MG ORAL TABLET 1 tablet twice daily for 2 days, then 1 tablet once daily for 2 days PREDNISONE 98392233403 No Longer Active Robbie Busby MD Active CEFDINIR 300 MG ORAL CAPSULE Take 1 cap po bid x 10 days CEFDINIR 24080531746 No Longer Active Robbie Busby MD Active AMLODIPINE BESYLATE 10 MG ORAL TABLET 1 tablet by mouth daily AMLODIPINE BESYLATE 35517106124 Active Robbie Busby MD Active CARVEDILOL 25 MG ORAL TABLET 1 & 1/2 TAB po BID CARVEDILOL 90062304033 Active Robbie Busby MD Active NEXIUM 40 MG ORAL CAPSULE DELAYED RELEASE 1 cap by mouth daily ESOMEPRAZOLE MAGNESIUM 10128509525 Active Robbie Busby MD Active PROTONIX 40 MG INTRAVENOUS SOLUTION RECONSTITUTED 1 po qday for acid reflux PANTOPRAZOLE SODIUM 43648115120 No Longer Active Gali Raida Active KEFLEX 500 MG ORAL CAPSULE 1 po TID x 10 days CEPHALEXIN 96544072273 No Longer Active Robbie Busby MD Active ALPRAZOLAM 2 MG ORAL TABLET 1 TAB PO BID ALPRAZOLAM 84164989142 Active Robbie Busby MD Active FENOFIBRATE 145 MG ORAL TABLET Take one by mouth daily FENOFIBRATE 29063657571 No Longer Active Robbie Busby MD Active SPIRONOLACTONE 50 MG ORAL TABLET 1 tablet by mouth twice a day SPIRONOLACTONE 09074551850 No Longer Active Robbie Busby MD Active HYDRALAZINE HCL 25 MG ORAL TABLET 1 tablet by mouth tid for hypertension 2013 HYDRALAZINE HCL 29017373180 No Longer Active Robbie Busby MD Active VIIBRYD 40 MG ORAL TABLET take 1 tab po qday for depression. 2014 VILAZODONE HCL 99065248360 No Longer Active Robbie Busby MD Active TERBINAFINE HCL 250 MG ORAL TABLET 1 tab po qday for foot infection TERBINAFINE HCL 49130525789 No Longer Active Robbie Busby MD Active GABAPENTIN 300 MG ORAL CAPSULE 1 po q hs for nerve pain GABAPENTIN 61590174064 Active Robbie Busby MD Active CHERATUSSIN AC 100-10 MG/5ML ORAL SOLUTION 7.5 mL PO q 4-6 hrs PRN cough 2014 GUAIFENESIN-CODEINE 75838771336 No Longer Active Robbie Busby MD Active AZITHROMYCIN 250 MG ORAL TABLET 2 tablets PO today---then, 1 tablet PO daily x 4 more days (and 1 optional refill) AZITHROMYCIN 14356910024 No Longer Active Robbie Busby MD Active NORVASC 10 MG ORAL TABLET 1 tablet by mouth daily AMLODIPINE BESYLATE 33385547712 No Longer Active Alex ALVAREZ Active ISOSORBIDE DINITRATE 30 MG ORAL TABLET Take one by mouth daily ISOSORBIDE DINITRATE 99704187944 No Longer Active Robbie Busby MD Active VIIBRYD 40 MG ORAL TABLET 1 TA B PO DAILY VILAZODONE HCL 57838394212 Active Robbie Busby MD Active ZITHROMAX 250 MG ORAL TABLET 2 po today, then 1 po q days 2-5 AZITHROMYCIN 58442596019 No Longer Active Robbie Busby MD Active DOXAZOSIN MESYLATE 4 MG ORAL TABLET Take one by mouth daily DOXAZOSIN MESYLATE 74319366344 Active Robbie Busby MD Active VENLAFAXINE HCL ER 150 MG ORAL TABLET EXTENDED RELEASE 24 HOUR Take one by mouth daily VENLAFAXINE HCL 15608408007 Active Robbie Busby MD Active LIPITOR 40 MG ORAL TABLET Take one by mouth daily ATORVASTATIN CALCIUM 62478109817 Active Robbie Busby MD Active ISOSORBIDE DINITRATE 30 MG ORAL TABLET Take one by mouth daily ISOSORBIDE DINITRATE 30 MG ORAL TABLET 964031 ISOSORBIDE DINITRATE Inactive NORVASC 10 MG ORAL TABLET 1 tablet by mouth daily NORVASC 10 MG ORAL TABLET 146516 AMLODIPINE BESYLATE Inactive AZITHROMYCIN 250 MG ORAL TABLET 2 tablets PO today---then, 1 tablet PO daily x 4 more days (and 1 optional refill) AZITHROMYCIN 250 MG ORAL TABLET 205612 AZITHROMYCIN Inactive CHERATUSSIN AC 100-10 MG/5ML ORAL SOLUTION 7.5 mL PO q 4-6 hrs PRN cough 2014 CHERATUSSIN AC 100-10 MG/5ML ORAL SOLUTION 745230 GUAIFENESIN-CODEINE Inactive VIIBRYD 40 MG ORAL TABLET take 1 tab po qday for depression. 2014 VIIBRYD 40 MG ORAL TABLET VILAZODONE HCL Inactive HYDRALAZINE HCL 25 MG ORAL TABLET 1 tablet by mouth tid for hypertension 2013 HYDRALAZINE HCL 25 MG ORAL TABLET 154827 HYDRALAZINE HCL Inactive SPIRONOLACTONE 50 MG ORAL TABLET 1 tablet by mouth twice a day SPIRONOLACTONE 50 MG ORAL TABLET 144928 SPIRONOLACTONE Inactive FENOFIBRATE 145 MG ORAL TABLET Take one by mouth daily FENOFIBRATE 145 MG ORAL TABLET 658450 FENOFIBRATE Inactive PROTONIX 40 MG INTRAVENOUS SOLUTION RECONSTITUTED 1 po qday for acid reflux PROTONIX 40 MG INTRAVENOUS SOLUTION RECONSTITUTED 673061 PANTOPRAZOLE SODIUM Inactive CEFDINIR 300 MG ORAL CAPSULE Take 1 cap po bid x 10 days CEFDINIR 300 MG ORAL CAPSULE 106544 CEFDINIR Inactive PREDNISONE 20 MG ORAL TABLET 1 tablet twice daily for 2 days, then 1 tablet once daily for 2 days PREDNISONE 20 MG ORAL TABLET 963684 PREDNISONE Inactive NYSTATIN 908324 UNIT/ML MOUTH/THROAT SUSPENSION 5mL po QID x 10 days NYSTATIN 812844 UNIT/ML MOUTH/THROAT SUSPENSION 275812 NYSTATIN Inactive BETADINE 10 % EXTERNAL SOLUTION 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 07/29 BETADINE 10 % EXTERNAL SOLUTION 8934868 POVIDONE-IODINE Inactive TRILEPTAL 150 MG ORAL TABLET 1 TAB PO Q HS TRILEPTAL 150 MG ORAL TABLET 447029 OXCARBAZEPINE Inactive LAMISIL 125 MG ORAL PACKET 1 TAB PO DAILY LAMISIL 125 MG ORAL PACKET TERBINAFINE HCL Inactive HYDROCHLOROTHIAZIDE TABLET Take one by mouth daily HYDROCHLOROTHIAZIDE TABLET HYDROCHLOROTHIAZIDE TABS Inactive HYDROCODONE-ACETAMINOPHEN 5-325 MG ORAL TABLET 1 tab by mouth BID prn back pain HYDROCODONE-ACETAMINOPHEN 5-325 MG ORAL TABLET 217060 HYDROCODONE-ACETAMINOPHEN Inactive HYDRALAZINE HCL 50 MG ORAL TABLET TWO BY MOUTH THREE TIMES DAILY HYDRALAZINE HCL 50 MG ORAL TABLET 487268 HYDRALAZINE HCL Inactive LEVAQUIN 500 MG ORAL TABLET 1 tablet by mouth daily for 7 days LEVAQUIN 500 MG ORAL TABLET 755490 LEVOFLOXACIN Inactive SPIRONOLACTONE 25 MG ORAL TABLET 4 tablets by mouth daily SPIRONOLACTONE 25 MG ORAL TABLET 057111 SPIRONOLACTONE Inactive MECLIZINE HCL 25 MG ORAL TABLET one 4 times a day as needed for dizziness MECLIZINE HCL 25 MG ORAL TABLET 662978 MECLIZINE HCL Inactive CLONIDINE HCL 0.2 MG ORAL TABLET 1 TAB BY MOUTH EVERY 8 HOURS CLONIDINE HCL 0.2 MG ORAL TABLET 354320 CLONIDINE HCL Inactive CYCLOBENZAPRINE HCL 10 MG ORAL TABLET 1 tablet by mouth three times daily as needed for muscle spasm/pain for 10 days CYCLOBENZAPRINE HCL 10 MG ORAL TABLET 477367 CYCLOBENZAPRINE HCL Inactive VITAMIN D3 94398 UNIT ORAL CAPSULE 2 CAPS PO WEEKLY VITAMIN D3 94707 UNIT ORAL CAPSULE CHOLECALCIFEROL Inactive FIORICET 50-300-40 MG ORAL CAPSULE take 1 tab po qday prn migraines. FIORICET 50-300-40 MG ORAL CAPSULE 030356 BUTALBITAL-APAP- CAFFEINE Inactive FLONASE 50 MCG/ACT NASAL SUSPENSION 1 spray each nostril twice daily for allergies and runny nose FLONASE 50 MCG/ACT NASAL SUSPENSION 3098840 FLUTICASONE PROPIONATE Inactive LORATADINE 10 MG ORAL TABLET 1 tablet by mouth daily for congestion and allergies. LORATADINE 10 MG ORAL TABLET 553510 LORATADINE Inactive NITROSTAT 0.4 MG SUBLINGUAL TABLET SUBLINGUAL PRN NITROSTAT 0.4 MG SUBLINGUAL TABLET SUBLINGUAL 084898 NITROGLYCERIN Inactive GUAIFENESIN ER 600 MG ORAL TABLET EXTENDED RELEASE 12 HOUR 1 tab po q am 2016 GUAIFENESIN ER 600 MG ORAL TABLET EXTENDED RELEASE 12 HOUR GUAIFENESIN Inactive CYCLOBENZAPRINE HCL 10 MG ORAL TABLET 1 po TID PRN muscle spasm/pain for 10 days CYCLOBENZAPRINE HCL 10 MG ORAL TABLET 821990 CYCLOBENZAPRINE HCL Inactive TOPIRAMATE 50 MG ORAL TABLET take 1 tab po BID for migraines. TOPIRAMATE 50 MG ORAL TABLET 987911 TOPIRAMATE Inactive PREDNISONE 20 MG ORAL TABLET two tabs by mouth today, then one tab by mouth days two and three PREDNISONE 20 MG ORAL TABLET 776691 PREDNISONE Inactive TOPROL XL 200 MG ORAL TABLET EXTENDED RELEASE 24 HOUR Take one by mouth daily TOPROL XL 200 MG ORAL TABLET EXTENDED RELEASE 24 HOUR METOPROLOL SUCCINATE Inactive CYCLOBENZAPRINE HCL 10 MG ORAL TABLET 1 tablet by mouth three times daily as needed for muscle spasm/pain CYCLOBENZAPRINE HCL 10 MG ORAL TABLET 604159 CYCLOBENZAPRINE HCL Inactive TOPIRAMATE 50 MG ORAL TABLET 1 po BID for migraines TOPIRAMATE 50 MG ORAL TABLET 098019 TOPIRAMATE Inactive TEMAZEPAM 15 MG ORAL CAPSULE 1 TAB PO Q HS TEMAZEPAM 15 MG ORAL CAPSULE 349957 TEMAZEPAM Inactive IMDUR 60 MG ORAL TABLET EXTENDED RELEASE 24 HOUR take 1 tab po qday for blood pressure IMDUR 60 MG ORAL TABLET EXTENDED RELEASE 24 HOUR ISOSORBIDE MONONITRATE Inactive [id number]-3 0.3 MG/24HR TRANSDERMAL PATCH WEEKLY apply 2 patches q week for HTN [id number]-6 0.3 MG/24HR TRANSDERMAL PATCH WEEKLY 245477 CLONIDINE HCL Inactive ZITHROMAX 250 MG ORAL TABLET 2 po today, then 1 po q days 2-5 ZITHROMAX 250 MG ORAL TABLET 465428 AZITHROMYCIN Inactive TERBINAFINE HCL 250 MG ORAL TABLET 1 tab po qday for foot infection TERBINAFINE HCL 250 MG ORAL TABLET 882978 TERBINAFINE HCL Inactive KEFLEX 500 MG ORAL CAPSULE 1 po TID x 10 days KEFLEX 500 MG ORAL CAPSULE 870720 CEPHALEXIN Inactive BACTRIM DS 800-160 MG ORAL TABLET 1 tab by mouth twice daily 2015 BACTRIM DS 800-160 MG ORAL TABLET 649296 TRIMETHOPRIM- SULFAMETHOXAZOLE Inactive PREDNISONE 20 MG ORAL TABLET take 3 tabs daily for 3 days, 2 tabs daily for 3 days, 1 tab daily for 3 days, 1/2 tab daily for 4 days PREDNISONE 20 MG ORAL TABLET 014880 PREDNISONE Inactive AZITHROMYCIN 250 MG ORAL TABLET 2 po qd x 1 day, then 1 po qd x 4 days 09/20 AZITHROMYCIN 250 MG ORAL TABLET 720871 AZITHROMYCIN Inactive SINGULAIR 10 MG ORAL TABLET 1 po qday for allergies. SINGULAIR 10 MG ORAL TABLET 823215 MONTELUKAST SODIUM Inactive Advance Directives Directive Description [...] AUTO - Chemistry sodium, serum 142 mmol/L 615-768 7602/07/17 carbon dioxide, venous blood 28.2 mmol/L 21.0-32.0 [...] Panel - Chemistry sodium, serum 141 mmol/L 178-333 3467/02/13 carbon dioxide, venous blood 23.9 mmol/L 21.0-32.0 [...] 6.9 % 4.3-6.0 sodium, serum 139 mmol/L 520-763 2888/01/04 potassium, serum 3.9 mmol/L 3.5-5.2 chloride, serum [...] 1.80 ng/mL 0.00-4.00 Lab Report: VITAMIN D, 25-HYDROXY/04237 - Chemistry vitamin D 25-hydroxy, serum 25 ng/mL 30-100 Encounters Code Encounter Date Provider Facility CPT-30087 Level 3 Est. Patient 13:59:07 CDT Renny Bella MD [facility] CPT-72340 Level 3 Est. Patient 16:04:17 CDT Robbie Busby MD [facility] CPT-05878 Level 4 Est. Patient 09:50:01 WALLPAPER CLEANER Robbie Busby MD [facility]-39319 Level 4 Est. Patient 09:42:08 WALLPAPER CLEANER Robbie Busby MD [facility] CPT-42996 Level 4 Est. Patient 13:07:39 WALLPAPER CLEANER Robbie Busby MD [facility] CPT-19363 Level 4 Est. Patient 15:23:44 WALLPAPER CLEANER Desmond Diaz DO [facility] CPT-28560 Level 3 Est. Patient 15:40:49 CDT Robbie Busby MD [facility] CPT-81392 Level 4 Est. Patient 15:18:19 CDT Robbie Busby MD [facility] CPT-27168 Level 3 Est. Patient 09:00:37 CDT Rober Rodríguez [facility] CPT-48437 Level 3 Est. Patient 16:07:10 CDT Robbie Busby MD [facility] CPT-86242 Level 4 Est. Patient 11:56:16 CDT Erin Mai [facility] CPT-55452 Level 3 Est. Patient 17:48:02 CDT Robbie Busby MD [facility] CPT-61567 Level 4 Est. Patient 12:00:49 WALLPAPER CLEANER Rober Rodríguez [facility] CPT-44585 Level 3 Est. Patient 09:16:37 CDT Robbie Busby MD [facility] CPT-62625 Level 3 Est. Patient 19:38:43 CDT Robbie Busby MD [facility] CPT-45235 Level 3 Est. Patient 11:53:38 CDT Robbie Busby MD [facility]-19638 Level 4 Est. Patient 12:52:22 CDT Rober Rodríguez APRN [facility] CPT-38556 Level 4 Est. Patient 22:55:17 CDT Robbie Busby MD [facility]-97649 Level 3 Est. Patient 12:38:24 CDT Desmond Diaz DO [facility] CPT-64309 Level 4 Est. Patient 11:25:03 WALLPAPER CLEANER Robbie Busby MD [facility]-43052 Level 4 Est. Patient 14:50:10 CDT Robbie Busby MD [facility] CPT-77078 Level 4 Est. Patient 23:30:43 CDT Robbie uBsby MD [facility] CPT-19053 Level 4 Est. Patient 10:30:43 CDT Robbie Busby MD [facility] CPT-01932 Level 3 Est. Patient 17:08:12 CDT Alex ALVAREZ [facility] CPT-84553 Level 4 Est. Patient 17:51:38 CDT Robbie Busby MD [facility] CPT-59209 Level 4 Est. Patient 14:00:21 CDT Robbie Busby MD [facility] CPT-03461 Level 4 Est. Patient 12:46:48 CDT Robbie Busby MD [facility]-48001 Level 4 Est. Patient 13:34:33 CDT Robbie Busby MD [facility] CPT-92216 Level 4 Est. Patient 16:58:28 CDT Robbie Busby MD [facility] CPT-46898 Level 3 Est. Patient 19:36:53 CDT Alex ALVAREZ [facility] CPT-23896 Level 3 Est. Patient 12:58:15 CDT Robbie Busby MD [facility] Procedures Code Procedure Name Date Entry Date Standard Description CPT-J1071 Depo Testosterone 200mg 09:01:06 CDT CPT-99385 Abx/Therapy Injection 09:01:06 CDT CPT-J1100 Decadron 8mg (Dexamethasone) 16:04:17 CDT CPT-J1040 Depo Medrol 80 mg (Methyl Prednisolone Acetate) 16:04: 17 CDT CPT-J1071 Depo Testosterone 200mg 08:56:46 CDT CPT-84896 Abx/Therapy Injection 08:56:45 CDT CPT-J1071 Depo Testosterone 200mg 08:26:27 CDT CPT-30847 Abx/Therapy Injection 08:26:27 CDT CPT-J1071 Depo Testosterone 200mg 10:27:10 CDT CPT-39672 Abx/Therapy Injection 10:27:10 CDT CPT-J1071 Depo Testosterone 200mg 16:10:29 WALLPAPER CLE[employer]ER CPT-69212 Abx/Therapy Injection 16:10:29 WALLPAPER CLEANER CPT-J1071 Depo Testosterone 200mg 16:13:47 WALLPAPER CLEANER CPT-44073 Abx/Therapy Injection 16:13:46 WALLPAPER CLEANER CPT-J1071 Depo Testosterone 200mg 15:33:58 WALLPAPER CLEANER CPT-42265 Abx/Therapy Injection 15:33:58 WALLPAPER CLEANER CPT-J1071 Depo Testosterone 200mg 09:38:36 WALLPAPER CLEANER CPT-99894 Abx/Therapy Injection 09:38:36 WALLPAPER CLEANER CPT-J1071 Depo Testosterone 200mg 10:22:56 WALLPAPER CLEANER CPT-38245 Abx/Therapy Injection 10:22:56 WALLPAPER CLEANER CPT-J1071 Depo Testosterone 200mg 15:40:23 CDT CPT-88371 Abx/Therapy Injection 15:40:23 CDT CPT-J1071 Depo Testosterone 200mg 14:20:43 CDT CPT-96085 Abx/Therapy Injection 14:20:43 CDT CPT-J1071 Depo Testosterone 200mg 14:17:22 CDT CPT-21810 Abx/Therapy Injection 14:17:22 CDT CPT-J1071 Depo Testosterone 200mg 09:03:53 CDT CPT-86569 Abx/Therapy Injection 09:03:53 CDT CPT-G0439 [facility] Annual Wellness Exam 16:47:44 CDT CPT-J1071 Depo Testosterone 200mg 09:06:28 CDT CPT-90961 Abx/Therapy Injection 09:06:28 CDT CPT-J1071 Depo Testosterone 200mg 08:30:01 CDT CPT-66111 Abx/Therapy Injection 08:30:01 CDT CPT-J1071 Depo Testosterone 200mg 08:24:00 CDT CPT-90116 Abx/Therapy Injection 08:24:00 CDT CPT-41217 Venipuncture Draw Fee 14:39:06 CDT CPT-79446 Ribs unilateral 2V - XRAY USE ONLY 12:10:11 CDT CPT-01535 First Vx - Ix admin for Medicare patients 16:32:53 CDT CPT-09688 Boostrix Intramuscular Suspension 5-2.5-18.5 16:32:53 CDT CPT-50902 TB Skin Test 11:42:28 CDT CPT-68536 Tdap 7yrs or > 11:42:28 CDT CPT-J0696 Rocephin 1000 mg (Ceftriaxone) 17:43:43 [employer] CPT-J1040 Depo Medrol 80 mg (Methyl Prednisolone Acetate) 17:43: 43 [employer] CPT-J1100 Decadron 8mg (Dexamethasone) 17:43:42 [employer] CPT-57645 Abx/Therapy Injection 17:43:42 [employer] CPT-56403 Abx/Therapy Injection 17:43:42 [employer] CPT-J1040 Depo Medrol 80 mg (Methyl Prednisolone Acetate) 09:43: 34 [employer] CPT-J1100 Decadron 8mg (Dexamethasone) 09:43:34 [employer] CPT-J0696 Rocephin 1gm Inj Solr 09:43:34 [employer] CPT-83049 Wound Culture - LAB USE ONLY 14:00:21 CDT CPT-I/D I/D Abscess 09:16:37 CDT CPT-94810 Venipuncture Draw Fee 15:20:23 CDT CPT-43171 Microalbumin - LAB USE ONLY 16:02:19 CDT CPT-51732 CBC - LAB USE ONLY 16:02:19 CDT CPT-43741 Venipuncture Draw Fee 16:02:19 CDT CPT-G0438 Initial Annual Wellness Exam 08:10:28 CDT CPT-02818 Venipuncture Draw Fee 13:07:17 CDT CPT-G0008 Administration of Influenza Virus Vaccine 16:09:59 CDT CPT-04946 Fluzone Quadrivalent Intramuscular Suspension 0.5 ML 16: 09:59 CDT CPT-21244 Spec Collection and Handling Fee 15:05:50 CDT
--- OUTSIDE RECORDS SUMMARY | 2018-04-18 11:42 | XMS REPORT | Clinical Summary ---
Author Author Admin, AKUA Organization [employer] [facility] Address Unknown Phone Unavailable Allergies, Adverse [...] Esophageal reflux Bronchitis, acute 466.0 Resolved Desmond iDaz DO Acute bronchitis Seasonal allergies 477.9 Active [...] chronic, stage III 585.3 Active Ca Garcia [facility] Chronic kidney disease, Stage III (moderate) C V A / Stroke Active Robbie Busby MD Myocardial Infarction: Active Robbie Busby MD Acute myocardial infarction, unspecified site, initial episode of care ( History of) Sleep apnea, chronic 780.57 Active Erin Garsia SWING SAW OPERATOR Unspecified sleep apnea Continuous positive airway pressure rx V46.2 Active Erin Garsia SWING SAW OPERATOR Other dependence on machines, 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 Fatigue 780.79 Resolved Desmond Diaz DO Other malaise and fatigue Hypertension, secondary, 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 Desmond Diaz DO Other malignant secondary hypertension Tachycardia 785.0 Active Rober Rodríguez SWING SAW OPERATOR Tachycardia, unspecified Insect bite, infected 919.5 Resolved Desmond Diaz DO Insect bite, nonvenomous, of other, multiple, and unspecified sites, infected Abscess, skin 682.9 Resolved Desmond Diaz DO Cellulitis and abscess of unspecified sites URI 465.9 Resolved Desmond Diaz DO Acute upper respiratory infections of unspecified site Hypertension 401.9 Active Rober Rodríguez SWING SAW OPERATOR Unspecified essential hypertension Sinusitis - acute [...] Hypogonadism, low testosterone 257.2 Active Erin Garsia SWING SAW OPERATOR Other testicular hypofunction Low back pain, chronic 724.2 Active Robbie Busby MD Lumbago Bronchitis-Acute 466.0 Inactive Desmond Howell Joe DO Acute bronchitis Polydipsia 783.5 Active Desmond Dante Joe DO Polydipsia Sinusitis ICD-461.9 Inactive Emily Atwood [employer] PASTE MOLDER 2017 Low back pain, acute ICD-724.2 Inactive Emily Atwood [employer] PA[employer] M[employer] Low back pain, chronic ICD-724.2 Inactive Emily Atwood [employer] PA[employer] M[employer]DER Bronchitis, acute ICD-466.0 Inactive Emily Atwood [employer] PA[employer] M[employer] Onychomycosis, toenails ICD-110.1 Inactive Emily Atwood [employer] PA[employer] M[employer]DER Dizziness ICD-780.4 Inactive Emily Atwood [employer] PASTE MOLDER 2017 Folliculitis ICD-704.8 Inactive Emily Atwood [employer]D PASTE M[employer]DER Pharyngitis-Acute ICD-462 Inactive Emily Atwood [employer] PA[employer] M[employer]DER Fatigue ICD-780.79 Inactive Emily Atwood [employer] PA[employer] MOLDER 09/20 Hypertension, secondary, malignant ICD-405.09 Inactive Emily Atwood [employer] PASTE M[employer]DER Insect bite, infected ICD-919.5 Inactive Emily Atwood [employer]D PASTE MOLDER Abscess, skin ICD-682.9 Inactive Emily Atwood AL[employer]D PASTE MOLDER URI ICD-465.9 Inactive Emily Atwood [employer]D PASTE MOLDER Sinusitis - acute ICD-461.9 Inactive Emily Atwood [employer] PASTE MOLDER Acute confusion ICD-293.0 Inactive Emily Atwood [employer] PA[employer] M[employer]DER Headache ICD-784.0 Inactive Emily Atwood AL[employer]D PASTE MOLDER 09/20 Back pain ICD-724.5 Inactive Emily Atwood AL[employer]D PASTE MOLDER 2017 Rib pain, right sided ICD-786.50 Inactive Emily Atwood [employer]D PASTE MOLDER Myalgias ICD-729.1 Inactive Emily Atwood AL[employer]D PASTE MOLDER 09/20 URI ICD-465.9 Inactive Emily Atwood TANNA Bronchitis-Acute ICD-466.0 Inactive Desmond Diaz DO Medication List Medication Instructions Start Date Stop Date Generic Name NDC Status Provider Patient Instruction PREDNISONE 20 MG ORAL TABLET two tabs by mouth today, then one tab by mouth days two and three PREDNISONE 54688732153 Active Desmond Diaz DO Active AZITHROMYCIN 250 MG ORAL TABLET 2 po qd x 1 day, then 1 po qd x 4 days 09/20 AZITHROMYCIN 49058630099 No Longer Active Desmond Diaz DO Active TOPIRAMATE 50 MG ORAL TABLET take 1 tab po BID for migraines. TOPIRAMATE 66000761152 No Longer Active Desmond Diaz DO Active CYCLOBENZAPRINE HCL 10 MG ORAL TABLET 1 po TID PRN muscle spasm/pain for 10 days CYCLOBENZAPRINE HCL 66481900333 No Longer Active Desmond Diaz DO Active GUAIFENESIN ER 600 MG ORAL TABLET EXTENDED RELEASE 12 HOUR 1 tab po q am 2016 GUAIFENESIN 10378964187 No Longer Active Robbie Busby MD Active DIVALPROEX SODIUM ER 500 MG ORAL TABLET EXTENDED RELEASE 24 HOUR Once daily DIVALPROEX SODIUM 73549266130 Active Rbobie Busby MD Active DEPO-TESTOSTERONE 200 MG/ML INTRAMUSCULAR SOLUTION 1 IM Injections every 2 weeks for low testosterone TESTOSTERONE CYPIONATE 22231040831 Active Zulema Blank LPN Active FLUTICASONE PROPIONATE 50 MCG/ACT NASAL SUSPENSION 2 sprays per nostril bid for 1 week, then 1 spray bid FLUTICASONE PROPIONATE 15109066841 Active Rober Rodríguez APRN Active HYDRALAZINE HCL 25 MG ORAL TABLET Take 1 tab BID. HYDRALAZINE HCL 97024840089 Active Rober Rodríguez APRN Active VITAMIN D3 64405 UNIT ORAL TABLET 2 po weekly CHOLECALCIFEROL 29386161762 Active Robbie Busby MD Active OXYCODONE HCL ER 10 MG ORAL TABLET ER 12 HOUR ABUSE-DETERRENT 1 tab po 3 times qd. OXYCODONE HCL 17785906670 Active Robbie Busby MD Active NITROSTAT 0.4 MG SUBLINGUAL TABLET SUBLINGUAL PRN NITROGLYCERIN 28957434694 No Longer Active Robbie Busby MD Active LORATADINE 10 MG ORAL TABLET 1 tablet by mouth daily for congestion and allergies. LORATADINE 97444515567 No Longer Active Robbie Busby MD Active FLONASE 50 MCG/ACT NASAL SUSPENSION 1 spray each nostril twice daily for allergies and runny nose FLUTICASONE PROPIONATE 94807182588 No Longer Active Robbie Busby MD Active FIORICET 50-300-40 MG ORAL CAPSULE take 1 tab po qday prn migraines. [id number] 80412621514 No Longer Active Robbie Busby MD Active VITAMIN D3 01922 UNIT ORAL CAPSULE 2 CAPS PO WEEKLY CHOLECALCIFEROL 36138065388 No Longer Active Robbie Busby MD Active CYCLOBENZAPRINE HCL 10 MG ORAL TABLET 1 tablet by mouth three times daily as needed for muscle spasm/pain for 10 days CYCLOBENZAPRINE HCL 35949313815 No Longer Active Robbie Busby MD Active PREDNISONE 20 MG ORAL TABLET take 3 tabs daily for 3 days, 2 tabs daily for 3 days, 1 tab daily for 3 days, 1/2 tab daily for 4 days PREDNISONE 58407995614 No Longer Active Erin Garsia APRN Active CLONIDINE HCL 0.2 MG ORAL TABLET 1 TAB BY MOUTH EVERY 8 HOURS CLONIDINE HCL 87390369503 No Longer Active Erin Garsia APRN Active MECLIZINE HCL 25 MG ORAL TABLET one 4 times a day as needed for dizziness MECLIZINE HCL 05669202789 No Longer Active Erin Garsia APRN Active SPIRONOLACTONE 25 MG ORAL TABLET 4 tablets by mouth daily SPIRONOLACTONE 23413057240 No Longer Active Erin Garsia APRN Active LEVAQUIN 500 MG ORAL TABLET 1 tablet by mouth daily for 7 days LEVOFLOXACIN 43885052275 No Longer Active Erin Garsia APRN Active BACTRIM DS 800-160 MG ORAL TABLET 1 tab by mouth twice daily 2015 TRIMETHOPRIM-SULFAMETHOXAZOLE 74194502648 No Longer Active Robbie Busby MD Active HYDRALAZINE HCL 50 MG ORAL TABLET TWO BY MOUTH THREE TIMES DAILY HYDRALAZINE HCL 53442246708 No Longer Active Jillina Frazell SWING SAW OPERATOR Active HYDROCODONE-ACETAMINOPHEN 5-325 MG ORAL TABLET 1 tab by mouth BID prn back pain HYDROCODONE-ACETAMINOPHEN 18969061015 No Longer Active Jillina Frazell SWING SAW OPERATOR Active HYDROCHLOROTHIAZIDE TABLET Take one by mouth daily HYDROCHLOROTHIAZIDE TABS 71260875526 No Longer Active Jillina Frazell SWING SAW OPERATOR Active LAMISIL 125 MG ORAL PACKET 1 TAB PO DAILY TERBINAFINE HCL 31132195308 No Longer Active Jillina Frazell SWING SAW OPERATOR Active TRILEPTAL 150 MG ORAL TABLET 1 TAB PO Q HS OXCARBAZEPINE 90071532686 No Longer Active Jillina Frazell SWING SAW OPERATOR Active BETADINE 10 % EXTERNAL SOLUTION 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 07/29 POVIDONE-IODINE 13291776290 No Longer Active Jillina Frazell SWING SAW OPERATOR Active NYSTATIN 583353 UNIT/ML MOUTH/THROAT SUSPENSION 5mL po QID x 10 days NYSTATIN 36789959722 No Longer Active Erin Garsia APRN Active PREDNISONE 20 MG ORAL TABLET 1 tablet twice daily for 2 days, then 1 tablet once daily for 2 days PREDNISONE 49365267310 No Longer Active Robbie Busby MD Active CEFDINIR 300 MG ORAL CAPSULE Take 1 cap po bid x 10 days CEFDINIR 79864789015 No Longer Active Robbie Busby MD Active AMLODIPINE BESYLATE 10 MG ORAL TABLET 1 tablet by mouth daily AMLODIPINE BESYLATE 10689546747 Active Robbie Busby MD Active CARVEDILOL 25 MG ORAL TABLET 1 & 1/2 TAB po BID CARVEDILOL 33916491411 Active Robbie Busby MD Active NEXIUM 40 MG ORAL CAPSULE DELAYED RELEASE 1 cap by mouth daily ESOMEPRAZOLE MAGNESIUM 51761323139 Active Robbie Busby MD Active PROTONIX 40 MG INTRAVENOUS SOLUTION RECONSTITUTED 1 po qday for acid reflux PANTOPRAZOLE SODIUM 04993982709 No Longer Active Gali Raida Active KEFLEX 500 MG ORAL CAPSULE 1 po TID x 10 days CEPHALEXIN 02074378987 No Longer Active Robbie Busby MD Active TEMAZEPAM 15 MG ORAL CAPSULE 1 TAB PO Q HS TEMAZEPAM 36985867626 Active Robbie Busby MD Active ALPRAZOLAM 2 MG ORAL TABLET 1 TAB PO BID ALPRAZOLAM 79711347778 Active Robbie Busby MD Active FENOFIBRATE 145 MG ORAL TABLET Take one by mouth daily FENOFIBRATE 16674680407 No Longer Active Robbie Busby MD Active SPIRONOLACTONE 50 MG ORAL TABLET 1 tablet by mouth twice a day SPIRONOLACTONE 11898405771 No Longer Active Robbie Busby MD Active HYDRALAZINE HCL 25 MG ORAL TABLET 1 tablet by mouth tid for hypertension 2013 HYDRALAZINE HCL 56993528053 No Longer Active Robbie Busby MD Active VIIBRYD 40 MG ORAL TABLET take 1 tab po qday for depression. 2014 VILAZODONE HCL 33681549468 No Longer Active Robbie Busby MD Active TERBINAFINE HCL 250 MG ORAL TABLET 1 tab po qday for foot infection TERBINAFINE HCL 51010596117 No Longer Active Robbie Busby MD Active GABAPENTIN 300 MG ORAL CAPSULE 1 po q hs for nerve pain GABAPENTIN 53251037607 Active Robbie Busby MD Active CHERATUSSIN AC 100-10 MG/5ML ORAL SOLUTION 7.5 mL PO q 4-6 hrs PRN cough 2014 GUAIFENESIN-CODEINE 97520804182 No Longer Active Robbie Busby MD Active AZITHROMYCIN 250 MG ORAL TABLET 2 tablets PO today---then, 1 tablet PO daily x 4 more days (and 1 optional refill) AZITHROMYCIN 79992900587 No Longer Active Robbie Busby MD Active NORVASC 10 MG ORAL TABLET 1 tablet by mouth daily AMLODIPINE BESYLATE 04242031868 No Longer Active Alex ALVAREZ Active IMDUR 60 MG ORAL TABLET EXTENDED RELEASE 24 HOUR take 1 tab po qday for blood pressure ISOSORBIDE MONONITRATE 09591660892 Active Robbie Busby MD Active ISOSORBIDE DINITRATE 30 MG ORAL TABLET Take one by mouth daily ISOSORBIDE DINITRATE 03506644456 No Longer Active Robbie Busby MD Active VIIBRYD 40 MG ORAL TABLET 1 TA B PO DAILY VILAZODONE HCL 88254804131 Active Robbie Busby MD Active ZITHROMAX 250 MG ORAL TABLET 2 po today, then 1 po q days 2-5 AZITHROMYCIN 36309257335 No Longer Active Robbie Busby MD Active [id number] 0.3 MG/24HR TRANSDERMAL PATCH WEEKLY apply 2 patches q week for HTN CLONIDINE HCL 14359096558 Active Robbie Busby MD Active DOXAZOSIN MESYLATE 4 MG ORAL TABLET Take one by mouth daily DOXAZOSIN MESYLATE 19914468354 Active Robbie Busby MD Active TOPROL XL 200 MG ORAL TABLET EXTENDED RELEASE 24 HOUR Take one by mouth daily METOPROLOL SUCCINATE 86184397038 Active Robbie Busby MD Active VENLAFAXINE HCL ER 150 MG ORAL TABLET EXTENDED RELEASE 24 HOUR Take one by mouth daily VENLAFAXINE HCL 62276731233 Active Robbie Busby MD Active LIPITOR 40 MG ORAL TABLET Take one by mouth daily ATORVASTATIN CALCIUM 22748287208 Active Robbie Busby MD Active ISOSORBIDE DINITRATE 30 MG ORAL TABLET Take one by mouth daily ISOSORBIDE DINITRATE 30 MG ORAL TABLET 838410 ISOSORBIDE DINITRATE Inactive NORVASC 10 MG ORAL TABLET 1 tablet by mouth daily NORVASC 10 MG ORAL TABLET 425491 AMLODIPINE BESYLATE Inactive AZITHROMYCIN 250 MG ORAL TABLET 2 tablets PO today---then, 1 tablet PO daily x 4 more days (and 1 optional refill) AZITHROMYCIN 250 MG ORAL TABLET 208894 AZITHROMYCIN Inactive CHERATUSSIN AC 100-10 MG/5ML ORAL SOLUTION 7.5 mL PO q 4-6 hrs PRN cough 2014 CHERATUSSIN AC 100-10 MG/5ML ORAL SOLUTION 080112 GUAIFENESIN-CODEINE Inactive VIIBRYD 40 MG ORAL TABLET take 1 tab po qday for depression. 2014 VIIBRYD 40 MG ORAL TABLET VILAZODONE HCL Inactive HYDRALAZINE HCL 25 MG ORAL TABLET 1 tablet by mouth tid for hypertension 2013 HYDRALAZINE HCL 25 MG ORAL TABLET 510448 HYDRALAZINE HCL Inactive SPIRONOLACTONE 50 MG ORAL TABLET 1 tablet by mouth twice a day SPIRONOLACTONE 50 MG ORAL TABLET 837270 SPIRONOLACTONE Inactive FENOFIBRATE 145 MG ORAL TABLET Take one by mouth daily FENOFIBRATE 145 MG ORAL TABLET 706213 FENOFIBRATE Inactive PROTONIX 40 MG INTRAVENOUS SOLUTION RECONSTITUTED 1 po qday for acid reflux PROTONIX 40 MG INTRAVENOUS SOLUTION RECONSTITUTED 622835 PANTOPRAZOLE SODIUM Inactive CEFDINIR 300 MG ORAL CAPSULE Take 1 cap po bid x 10 days CEFDINIR 300 MG ORAL CAPSULE 398441 CEFDINIR Inactive PREDNISONE 20 MG ORAL TABLET 1 tablet twice daily for 2 days, then 1 tablet once daily for 2 days PREDNISONE 20 MG ORAL TABLET 821399 PREDNISONE Inactive NYSTATIN 234949 UNIT/ML MOUTH/THROAT SUSPENSION 5mL po QID x 10 days NYSTATIN 254537 UNIT/ML MOUTH/THROAT SUSPENSION 289205 NYSTATIN Inactive BETADINE 10 % EXTERNAL SOLUTION 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 07/29 BETADINE 10 % EXTERNAL SOLUTION 0770614 POVIDONE-IODINE Inactive TRILEPTAL 150 MG ORAL TABLET 1 TAB PO Q HS TRILEPTAL 150 MG ORAL TABLET 904796 OXCARBAZEPINE Inactive LAMISIL 125 MG ORAL PACKET 1 TAB PO DAILY LAMISIL 125 MG ORAL PACKET TERBINAFINE HCL Inactive HYDROCHLOROTHIAZIDE TABLET Take one by mouth daily HYDROCHLOROTHIAZIDE TABLET HYDROCHLOROTHIAZIDE TABS Inactive HYDROCODONE-ACETAMINOPHEN 5-325 MG ORAL TABLET 1 tab by mouth BID prn back pain HYDROCODONE-ACETAMINOPHEN 5-325 MG ORAL TABLET 264104 HYDROCODONE-ACETAMINOPHEN Inactive HYDRALAZINE HCL 50 MG ORAL TABLET TWO BY MOUTH THREE TIMES DAILY HYDRALAZINE HCL 50 MG ORAL TABLET 537818 HYDRALAZINE HCL Inactive LEVAQUIN 500 MG ORAL TABLET 1 tablet by mouth daily for 7 days LEVAQUIN 500 MG ORAL TABLET 680482 LEVOFLOXACIN Inactive SPIRONOLACTONE 25 MG ORAL TABLET 4 tablets by mouth daily SPIRONOLACTONE 25 MG ORAL TABLET 942696 SPIRONOLACTONE Inactive MECLIZINE HCL 25 MG ORAL TABLET one 4 times a day as needed for dizziness MECLIZINE HCL 25 MG ORAL TABLET 796516 MECLIZINE HCL Inactive CLONIDINE HCL 0.2 MG ORAL TABLET 1 TAB BY MOUTH EVERY 8 HOURS CLONIDINE HCL 0.2 MG ORAL TABLET 661023 CLONIDINE HCL Inactive CYCLOBENZAPRINE HCL 10 MG ORAL TABLET 1 tablet by mouth three times daily as needed for muscle spasm/pain for 10 days CYCLOBENZAPRINE HCL 10 MG ORAL TABLET 518446 CYCLOBENZAPRINE HCL Inactive VITAMIN D3 91867 UNIT ORAL CAPSULE 2 CAPS PO WEEKLY VITAMIN D3 15771 UNIT ORAL CAPSULE CHOLECALCIFEROL Inactive FIORICET 50-300-40 MG ORAL CAPSULE take 1 tab po qday prn migraines. FIORICET 50-300-40 MG ORAL CAPSULE 855401 BUTALBITAL-APAP- CAFFEINE Inactive FLONASE 50 MCG/ACT NASAL SUSPENSION 1 spray each nostril twice daily for allergies and runny nose FLONASE 50 MCG/ACT NASAL SUSPENSION 9806749 FLUTICASONE PROPIONATE Inactive LORATADINE 10 MG ORAL TABLET 1 tablet by mouth daily for congestion and allergies. LORATADINE 10 MG ORAL TABLET 805435 LORATADINE Inactive NITROSTAT 0.4 MG SUBLINGUAL TABLET SUBLINGUAL PRN NITROSTAT 0.4 MG SUBLINGUAL TABLET SUBLINGUAL 767760 NITROGLYCERIN Inactive GUAIFENESIN ER 600 MG ORAL TABLET EXTENDED RELEASE 12 HOUR 1 tab po q am 2016 GUAIFENESIN ER 600 MG ORAL TABLET EXTENDED RELEASE 12 HOUR GUAIFENESIN Inactive CYCLOBENZAPRINE HCL 10 MG ORAL TABLET 1 po TID PRN muscle spasm/pain for 10 days CYCLOBENZAPRINE HCL 10 MG ORAL TABLET 399815 CYCLOBENZAPRINE HCL Inactive TOPIRAMATE 50 MG ORAL TABLET take 1 tab po BID for migraines. TOPIRAMATE 50 MG ORAL TABLET 154823 TOPIRAMATE Inactive ZITHROMAX 250 MG ORAL TABLET 2 po today, then 1 po q days 2-5 ZITHROMAX 250 MG ORAL TABLET 997832 AZITHROMYCIN Inactive TERBINAFINE HCL 250 MG ORAL TABLET 1 tab po qday for foot infection TERBINAFINE HCL 250 MG ORAL TABLET 678959 TERBINAFINE HCL Inactive KEFLEX 500 MG ORAL CAPSULE 1 po TID x 10 days KEFLEX 500 MG ORAL CAPSULE 827631 CEPHALEXIN Inactive BACTRIM DS 800-160 MG ORAL TABLET 1 tab by mouth twice daily 2015 BACTRIM DS 800-160 MG ORAL TABLET 868861 TRIMETHOPRIM- SULFAMETHOXAZOLE Inactive PREDNISONE 20 MG ORAL TABLET take 3 tabs daily for 3 days, 2 tabs daily for 3 days, 1 tab daily for 3 days, 1/2 tab daily for 4 days PREDNISONE 20 MG ORAL TABLET 855655 PREDNISONE Inactive AZITHROMYCIN 250 MG ORAL TABLET 2 po qd x 1 day, then 1 po qd x 4 days 09/20 AZITHROMYCIN 250 MG ORAL TABLET 913937 AZITHROMYCIN Inactive Advance Directives Directive Description Start [...] AUTO - Chemistry sodium, serum 142 mmol/L 200-203 3291/07/17 carbon dioxide, venous blood 28.2 mmol/L 21.0-32.0 [...] % 11.0-15.0 platelet count 185 THOUSAND/UL 10*3/mm3 398-908 5572/04/14 mean platelet volume 10.9 fL 7.5-12.5 Lab Report: HGBA1C, Basic Metabolic Panel - Chemistry hemoglobin A1C, blood, as % of total hemoglobin 6.9 % 4.3-6.0 sodium, serum 139 mmol/L 539-841 5697/01/04 potassium, serum 3.9 mmol/L 3.5-5.2 chloride, serum 103 mmol/L 98-107 carbon dioxide, venous blood 26.9 mmol/L 21.0-32.0 blood glucose 106 mg/dL 65-110 calcium, serum 9.0 mg/dL 8.5-10.1 urea nitrogen, blood 20 mg/dL 7-18 creatinine, serum 1.46 mg/dL 0.60-1.30 Lab Report: LIPID PANEL, TSH/899, T4, FREE/866 - Chemistry cholesterol, serum 220 mg/dL 210-351 3046/04/14 HDL cholesterol, serum 30 mg/dL > OR=40 [...] 1.80 ng/mL 0.00-4.00 Lab Report: VITAMIN D, 25-HYDROXY/39408 - Chemistry vitamin D 25-hydroxy, serum 25 ng/mL 30-100 Office Visit: Confusion, dizziness after fall - Basic LDL target level 130 mg/dL Office Visit: Confusion, dizziness after fall - Chemistry HDL cholesterol, serum, target level 40 mg/dL triglyceride, target level 150 mg/dL cholesterol, target level 200 mg/dL Encounters Code Encounter Date Provider Facility CPT-55233 Level 4 Est. Patient 15:23:44 LEAD PROJECT ENGINEER Desmond Diaz DO [facility] CPT-28727 Level 3 Est. Patient 15:40:49 CDT Robbie Busby MD [facility] CPT-27975 Level 4 Est. Patient 15:18:19 CDT Robbie Busby MD [facility] CPT-73855 Level 3 Est. Patient 09:00:37 CDT Rober Rodríguez [facility] CPT-75292 Level 3 Est. Patient 16:07:10 CDT Robbie Busby MD [facility] CPT-08567 Level 4 Est. Patient 11:56:16 CDT Erin Garsia [facility] CPT-73835 Level 3 Est. Patient 17:48:02 CDT Robbie Busby MD [facility] CPT-05817 Level 4 Est. Patient 12:00:49 LEAD PROJECT ENGINEER Rober Rodríguez [facility] CPT-47734 Level 3 Est. Patient 09:16:37 CDT Robbie Busby MD [facility] CPT-01623 Level 3 Est. Patient 19:38:43 CDT Robbie Busby MD [facility] CPT-68344 Level 3 Est. Patient 11:53:38 CDT Robbie Busby MD [facility]-17506 Level 4 Est. Patient 12:52:22 CDT Rober Rodríguez APRN [facility]-98416 Level 4 Est. Patient 22:55:17 CDT Robbie Busby MD [facility]-62937 Level 3 Est. Patient 12:38:24 CDT Desmond Diaz DO [facility]-89173 Level 4 Est. Patient 11:25:03 LEAD PROJECT ENGINEER Robbie Busby MD [facility]-88328 Level 4 Est. Patient 14:50:10 CDT Robbie Busby MD [facility]-31583 Level 4 Est. Patient 23:30:43 CDT Robbie Busby MD [facility]-23077 Level 4 Est. Patient 10:30:43 CDT Robbie Busby MD [facility] CPT-70782 Level 3 Est. Patient 17:08:12 CDT Alex ALVAREZ [facility]-18133 Level 4 Est. Patient 17:51:38 CDT Robbie Busby MD [facility]-86968 Level 4 Est. Patient 14:00:21 CDT Robbie Busby MD [facility]-54622 Level 4 Est. Patient 12:46:48 CDT Robbie Busby MD [facility]-67754 Level 4 Est. Patient 13:34:33 CDT Robbie Busby MD [facility]-25243 Level 4 Est. Patient 16:58:28 CDT Robbie Busby MD [facility]-40095 Level 3 Est. Patient 19:36:53 CDT Alex ALVAREZ [facility] CPT-62321 Level 3 Est. Patient 12:58:15 CDT Robbie Busby MD [facility] Procedures Code Procedure Name Date Entry Date Standard Description CPT-J1071 Depo Testosterone 200mg 15:33:58 LEAD PROJECT ENGINEER CPT-74601 Abx/Therapy Injection 15:33:58 [facility] CPT-J1071 Depo Testosterone 200mg 09:38:36 LEAD PROJECT ENGINEER CPT-47609 Abx/Therapy Injection 09:38:36 [facility] CPT-J1071 Depo Testosterone 200mg 10:22:56 LEAD PROJECT ENGINEER CPT-96531 Abx/Therapy Injection 10:22:56 LEAD PROJECT ENGINEER CPT-J1071 Depo Testosterone 200mg 15:40:23 CDT CPT-79377 Abx/Therapy Injection 15:40:23 CDT CPT-J1071 Depo Testosterone 200mg 14:20:43 CDT CPT-83935 Abx/Therapy Injection 14:20:43 CDT CPT-J1071 Depo Testosterone 200mg 14:17:22 CDT CPT-90686 Abx/Therapy Injection 14:17:22 CDT CPT-J1071 Depo Testosterone 200mg 09:03:53 CDT CPT-94625 Abx/Therapy Injection 09:03:53 CDT CPT-G0439 [facility] Annual Wellness Exam 16:47:44 CDT CPT-J1071 Depo Testosterone 200mg 09:06:28 CDT CPT-47568 Abx/Therapy Injection 09:06:28 CDT CPT-J1071 Depo Testosterone 200mg 08:30:01 CDT CPT-11039 Abx/Therapy Injection 08:30:01 CDT CPT-J1071 Depo Testosterone 200mg 08:24:00 CDT CPT-82922 Abx/Therapy Injection 08:24:00 CDT CPT-80408 Venipuncture Draw Fee 14:39:06 CDT CPT-71253 Ribs unilateral 2V - XRAY USE ONLY 12:10:11 CDT CPT-79898 First Vx - Ix admin for Medicare patients 16:32:53 CDT CPT-14074 Boostrix Intramuscular Suspension 5-2.5-18.5 16:32:53 CDT CPT-23432 TB Skin Test 11:42:28 CDT CPT-17711 Tdap 7yrs or > 11:42:28 CDT CPT-J0696 Rocephin 1000 mg (Ceftriaxone) 17:43:43 LEAD PROJECT ENGINEER CPT-J1040 Depo Medrol 80 mg (Methyl Prednisolone Acetate) 17:43: 43 LEAD PROJECT ENGINEER CPT-J1100 Decadron 8mg (Dexamethasone) 17:43:42 LEAD PROJECT ENGINEER CPT-04570 Abx/Therapy Injection 17:43:42 LEAD PROJECT ENGINEER CPT-06792 Abx/Therapy Injection 17:43:42 LEAD PROJECT ENGINEER CPT-J1040 Depo Medrol 80 mg (Methyl Prednisolone Acetate) 09:43: 34 LEAD PROJECT ENGINEER CPT-J1100 Decadron 8mg (Dexamethasone) 09:43:34 LEAD PROJECT ENGINEER CPT-J0696 Rocephin 1gm Inj Solr 09:43:34 LEAD PROJECT ENGINEER CPT-85090 Wound Culture - LAB USE ONLY 14:00:21 CDT CPT-I/D I/D Abscess 09:16:37 CDT CPT-70105 Venipuncture Draw Fee 15:20:23 CDT CPT-42229 Microalbumin - LAB USE ONLY 16:02:19 CDT CPT-34769 CBC - LAB USE ONLY 16:02:19 CDT CPT-72410 Venipuncture Draw Fee 16:02:19 CDT CPT-G0438 Initial Annual Wellness Exam 08:10:28 CDT CPT-18915 Venipuncture Draw Fee 13:07:17 CDT CPT-G0008 Administration of Influenza Virus Vaccine 16:09:59 CDT CPT-81938 Fluzone Quadrivalent Intramuscular Suspension 0.5 ML 16: 09:59 CDT CPT-08556 Spec Collection and Handling Fee 15:05:50 CDT
--- OUTSIDE RECORDS SUMMARY | 2018-04-18 11:42 | XMS REPORT | Clinical Summary ---
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 HYDRALAZINE HCL 35593388969 Active Jillina Anne GONZALEZN Active VITAMIN D3 97602 UNIT ORAL TABS 2 po weekly CHOLECALCIFEROL 29193405439 Active Robbie Busby MD Active OXYCODONE HCL ER 10 MG ORAL T12A 1 tab po 3 times qd. OXYCODONE HCL 67854355340 Active Robbie Busby MD Active NITROSTAT 0.4 MG SUBL PRN NITROGLYCERIN 06565263075 No Longer Active Robbie Busby MD Active LORATADINE 10 MG TABS 1 tablet by mouth daily for congestion and allergies. LORATADINE 81987148119 No Longer Active Robbie Busby MD Active FLONASE 50 MCG/ACT SUSP 1 spray each nostril twice daily for allergies and runny nose FLUTICASONE PROPIONATE 84021985117 No Longer Active Robbie Busby MD Active FIORICET 50-300-40 MG ORAL CAPS take 1 tab po qday prn migraines. [id number] 78314072172 No Longer Active Robbie Busby MD Active VITAMIN D3 56930 UNIT CAPS 2 CAPS PO WEEKLY CHOLECALCIFEROL 67124046472 No Longer Active Robbie Busby MD Active CYCLOBENZAPRINE HCL 10 MG TABS 1 tablet by mouth three times daily as needed for muscle spasm/pain for 10 days CYCLOBENZAPRINE HCL 23512061273 No Longer Active Robbie Busby MD Active PREDNISONE 20 MG TAB take 3 tabs daily for 3 days, 2 tabs daily for 3 days, 1 tab daily for 3 days, 1/2 tab daily for 4 days PREDNISONE 21947069412 No Longer Active Erin Garsia APRN Active CLONIDINE HCL 0.2 MG ORAL TABS 1 TAB BY MOUTH EVERY 8 HOURS 12/29 CLONIDINE HCL 40773071422 No Longer Active Erin Garsia APRN Active MECLIZINE HCL 25 MG TAB one 4 times a day as needed for dizziness MECLIZINE HCL 99532230841 No Longer Active Erin Garsia APRN Active SPIRONOLACTONE 25 MG TAB 4 tablets by mouth daily SPIRONOLACTONE 31661053754 No Longer Active Erin Garsia APRN Active LEVAQUIN 500 MG TAB 1 tablet by mouth daily for 7 days LEVOFLOXACIN 25703533117 No Longer Active Erin Garsia APRN Active BACTRIM DS 800-160 MG TAB 1 tab by mouth twice daily TRIMETHOPRIM-SULFAMETHOXAZOLE 61026260427 No Longer Active Robbie Busby MD Active HYDRALAZINE HCL 50 MG ORAL TABS TWO BY MOUTH THREE TIMES DAILY HYDRALAZINE HCL 77388937583 No Longer Active Jillina Frazell [employer]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 HYDROCODONE-ACETAMINOPHEN 5-325 MG TABS 1 tab by mouth BID prn back pain 2013 HYDROCODONE-ACETAMINOPHEN 29538345119 No Longer Active Jillina Frazell [employer]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 HYDROCHLOROTHIAZIDE TABS Take one by mouth daily HYDROCHLOROTHIAZIDE TABS 78405650217 No Longer Active Jillina Frazell [employer]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 LAMISIL 125 MG ORAL PACK 1 TAB PO DAILY TERBINAFINE HCL 13369007544 No Longer Active Jillina Frazell [employer]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 TRILEPTAL 150 MG ORAL TABS 1 TAB PO Q HS OXCARBAZEPINE 98806182709 No Longer Active Jillina Frazell [employer]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 BETADINE 10 % EXT SOLN 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 POVIDONE-IODINE 36161302269 No Longer Active Jillina Frazell [employer]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 NYSTATIN 236647 UNIT/ML M/T SUSP 5mL po QID x 10 days NYSTATIN 25411820564 No Longer Active Erin Ady [employer]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 PREDNISONE 20 MG TAB 1 tablet twice daily for 2 days, then 1 tablet once daily for 2 days PREDNISONE 02228505020 No Longer Active Robbie Busby MD Active CEFDINIR 300 MG ORAL CAPS Take 1 cap po bid x 10 days CEFDINIR 79595278534 No Longer Active Robbie Busby MD Active AMLODIPINE BESYLATE 10 MG TABS 1 tablet by mouth daily AMLODIPINE BESYLATE 95790650757 Active Robbie Busby MD Active CARVEDILOL 25 MG TABS 1 & 1/2 TAB po BID CARVEDILOL 10931643257 Active Robbie Busby MD Active NEXIUM 40 MG CPDR 1 cap by mouth daily ESOMEPRAZOLE MAGNESIUM 00759979510 Active Robbie Busby MD Active PROTONIX 40 MG SOLR 1 po qday for acid reflux PANTOPRAZOLE SODIUM 42201804326 No Longer Active Gali Raida Active KEFLEX 500 MG CAP 1 po TID x 10 days CEPHALEXIN 80388444857 No Longer Active Robbie Busby MD Active TOPIRAMATE 50 MG ORAL TABS take 1 tab po BID for migraines. TOPIRAMATE 45730881381 Active Robbie Busby MD Active TEMAZEPAM 15 MG ORAL CAPS 1 TAB PO Q HS TEMAZEPAM 79376141945 Active Robbie Busby MD Active ALPRAZOLAM 2 MG ORAL TABS 1 TAB PO BID ALPRAZOLAM 30559419495 Active Robbie Busby MD Active FENOFIBRATE 145 MG TABS Take one by mouth daily FENOFIBRATE 84794042886 No Longer Active Robbie Busby MD Active SPIRONOLACTONE 50 MG TABS 1 tablet by mouth twice a day SPIRONOLACTONE 99486991176 No Longer Active Robbie Busby MD Active HYDRALAZINE HCL 25 MG TABS 1 tablet by mouth tid for hypertension HYDRALAZINE HCL 77783182194 No Longer Active Robbie Busby MD Active VIIBRYD 40 MG TABS take 1 tab po qday for depression. VILAZODONE HCL 61013517316 No Longer Active Robbie Busby MD Active TERBINAFINE HCL 250 MG TABS 1 tab po qday for foot infection 2014 TERBINAFINE HCL 82848735212 No Longer Active Robbie Busby MD Active GABAPENTIN 300 MG CAPS 1 po q hs for nerve pain GABAPENTIN 97592435175 Active Robbie Busby MD Active CHERATUSSIN AC 100-10 MG/5ML ORAL SOLN 7.5 mL PO q 4-6 hrs PRN cough GUAIFENESIN-CODEINE 12835990687 No Longer Active Robbie Busby MD Active AZITHROMYCIN 250 MG ORAL TABS 2 tablets PO today---then, 1 tablet PO daily x 4 more days (and 1 optional refill) AZITHROMYCIN 14218629458 No Longer Active Robbie Busby MD Active NORVASC 10 MG TAB 1 tablet by mouth daily AMLODIPINE BESYLATE 41907121260 No Longer Active Alex ALVAREZ Active IMDUR 60 MG TAB CR take 1 tab po qday for blood pressure ISOSORBIDE MONONITRATE Active Robbie Busby MD Active ISOSORBIDE DINITRATE 30 MG TABS Take one by mouth daily ISOSORBIDE DINITRATE 45034294873 No Longer Active Robbie Busby MD Active VIIBRYD 40 MG TABS 1 TA B PO DAILY VILAZODONE HCL 02376215684 Active Robbie Busby MD Active ZITHROMAX 250 MG TAB 2 po today, then 1 po q days 2-5 AZITHROMYCIN 53828865911 No Longer Active Robbie Busby MD Active [id number]-PPS-3 0.3 MG/24HR PTWK apply 2 patches q week for HTN CLONIDINE HCL 10447359493 Active Robbie Busby MD Active DOXAZOSIN MESYLATE 4 MG TABS Take one by mouth daily DOXAZOSIN MESYLATE 08091653473 Active Robbie Busby MD Active TOPROL XL 200 MG [id number] Take one by mouth daily METOPROLOL SUCCINATE 12574140014 Active Robbie Busby MD Active VENLAFAXINE HCL ER 150 MG [id number] Take one by mouth daily VENLAFAXINE HCL 14579408696 Active Robbie Busby MD Active LIPITOR 40 MG TABS Take one by mouth daily ATORVASTATIN CALCIUM 76895888795 Active Robbie Busby MD Active ISOSORBIDE DINITRATE 30 MG TABS Take one by mouth daily ISOSORBIDE DINITRATE 30 MG TABS 253585 ISOSORBIDE DINITRATE Inactive NORVASC 10 MG TAB 1 tablet by mouth daily NORVASC 10 MG TAB 837651 AMLODIPINE BESYLATE Inactive AZITHROMYCIN 250 MG ORAL TABS 2 tablets PO today---then, 1 tablet PO daily x 4 more days (and 1 optional refill) AZITHROMYCIN 250 MG ORAL TABS 3805281 AZITHROMYCIN Inactive CHERATUSSIN AC 100-10 MG/5ML ORAL SOLN 7.5 mL PO q 4-6 hrs PRN cough CHERATUSSIN AC 100-10 MG/5ML ORAL SOLN 493975 GUAIFENESIN- CODEINE Inactive VIIBRYD 40 MG TABS take 1 tab po qday for depression. VIIBRYD 40 MG TABS VILAZODONE HCL Inactive HYDRALAZINE HCL 25 MG TABS 1 tablet by mouth tid for hypertension HYDRALAZINE HCL 25 MG TABS 099867 HYDRALAZINE HCL Inactive SPIRONOLACTONE 50 MG TABS 1 tablet by mouth twice a day SPIRONOLACTONE 50 MG TABS 576879 SPIRONOLACTONE Inactive FENOFIBRATE 145 MG TABS Take one by mouth daily FENOFIBRATE 145 MG TABS 838594 FENOFIBRATE Inactive PROTONIX 40 MG SOLR 1 po qday for acid reflux PROTONIX 40 MG SOLR 994658 PANTOPRAZOLE SODIUM Inactive CEFDINIR 300 MG ORAL CAPS Take 1 cap po bid x 10 days CEFDINIR 300 MG ORAL CAPS 705326 CEFDINIR Inactive PREDNISONE 20 MG TAB 1 tablet twice daily for 2 days, then 1 tablet once daily for 2 days PREDNISONE 20 MG TAB 957679 PREDNISONE Inactive NYSTATIN 255012 UNIT/ML M/T SUSP 5mL po QID x 10 days NYSTATIN 331228 UNIT/ML M/T SUSP 506247 NYSTATIN Inactive BETADINE 10 % EXT SOLN 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 BETADINE 10 % EXT SOLN 4414415 POVIDONE-IODINE Inactive TRILEPTAL 150 MG ORAL TABS 1 TAB PO Q HS TRILEPTAL 150 MG ORAL TABS 053770 OXCARBAZEPINE Inactive LAMISIL 125 MG ORAL PACK 1 TAB PO DAILY LAMISIL 125 MG ORAL PACK TERBINAFINE HCL Inactive HYDROCHLOROTHIAZIDE TABS Take one by mouth daily HYDROCHLOROTHIAZIDE TABS HYDROCHLOROTHIAZIDE TABS Inactive HYDROCODONE-ACETAMINOPHEN 5-325 MG TABS 1 tab by mouth BID prn back pain 2013 HYDROCODONE-ACETAMINOPHEN 5-325 MG TABS 946303 HYDROCODONE -ACETAMINOPHEN Inactive HYDRALAZINE HCL 50 MG ORAL TABS TWO BY MOUTH THREE TIMES DAILY HYDRALAZINE HCL 50 MG ORAL TABS 349822 HYDRALAZINE HCL Inactive LEVAQUIN 500 MG TAB 1 tablet by mouth daily for 7 days LEVAQUIN 500 MG TAB 916996 LEVOFLOXACIN Inactive SPIRONOLACTONE 25 MG TAB 4 tablets by mouth daily SPIRONOLACTONE 25 MG TAB 382520 SPIRONOLACTONE Inactive MECLIZINE HCL 25 MG TAB one 4 times a day as needed for dizziness MECLIZINE HCL 25 MG TAB 034260 MECLIZINE HCL Inactive CLONIDINE HCL 0.2 MG ORAL TABS 1 TAB BY MOUTH EVERY 8 HOURS 12/29 CLONIDINE HCL 0.2 MG ORAL TABS 182556 CLONIDINE HCL Inactive CYCLOBENZAPRINE HCL 10 MG TABS 1 tablet by mouth three times daily as needed for muscle spasm/pain for 10 days CYCLOBENZAPRINE HCL 10 MG TABS 232149 CYCLOBENZAPRINE HCL Inactive VITAMIN D3 99394 UNIT CAPS 2 CAPS PO WEEKLY VITAMIN D3 43439 UNIT CAPS CHOLECALCIFEROL Inactive FIORICET 50-300-40 MG ORAL CAPS take 1 tab po qday prn migraines. FIORICET 50-300-40 MG ORAL CAPS 420766 [id number] Inactive FLONASE 50 MCG/ACT SUSP 1 spray each nostril twice daily for allergies and runny nose FLONASE 50 MCG/ACT SUSP 8816845 FLUTICASONE PROPIONATE Inactive LORATADINE 10 MG TABS 1 tablet by mouth daily for congestion and allergies. LORATADINE 10 MG TABS 819087 LORATADINE Inactive NITROSTAT 0.4 MG SUBL PRN NITROSTAT 0.4 MG SUBL 036489 NITROGLYCERIN Inactive ZITHROMAX 250 MG TAB 2 po today, then 1 po q days 2-5 ZITHROMAX 250 MG TAB 7939064 AZITHROMYCIN Inactive TERBINAFINE HCL 250 MG TABS 1 tab po qday for foot infection 2014 TERBINAFINE HCL 250 MG TABS 179791 TERBINAFINE HCL Inactive KEFLEX 500 MG CAP 1 po TID x 10 days KEFLEX 500 MG CAP 686668 CEPHALEXIN Inactive BACTRIM DS 800-160 MG TAB 1 tab by mouth twice daily BACTRIM DS 800-160 MG TAB 266072 TRIMETHOPRIM-SULFAMETHOXAZOLE Inactive PREDNISONE 20 MG TAB take 3 tabs daily for 3 days, 2 tabs daily for 3 days, 1 tab daily for 3 days, 1/2 tab daily for 4 days PREDNISONE 20 MG TAB 623190 PREDNISONE Inactive Advance Directives Directive Description Start [...] AUTO - Chemistry sodium, serum 142 mmol/L 535-363 3275/07/17 carbon dioxide, venous blood 28.2 mmol/L 21.0-32.0 [...] % 11.0-15.0 platelet count 185 THOUSAND/UL 10*3/mm3 579-973 2353/04/14 mean platelet volume 10.9 fL 7.5-12.5 Lab Report: LIPID PANEL, TSH/899, T4, FREE/866 - Chemistry cholesterol, serum 220 mg/dL 415-243 6712/04/14 HDL cholesterol, serum 30 mg/dL > OR=40 triglyceride, serum, fasting 466 mg/dL <150 LDL cholesterol, serum SEE NOTE mg/dL (calc) mg/dL <130 cholesterol/HDL ratio, serum 7.3 (calc) < OR=5.0 Lab Report: MICROALB/CREAT W/RATIO - Chemistry albumin/creatinine ratio, urine < 30 mg/g mg/g{creat} 0-29 Lab Report: MICROALB/CREAT W/RATIO - Lab microalbumin, urine 80 0-19 Lab Report: VITAMIN D, 25-HYDROXY/78863 - Chemistry vitamin D 25-hydroxy, serum 25 ng/mL 30-100 Office Visit: Confusion, dizziness after fall - Basic LDL target level 130 mg/dL Office Visit: Confusion, dizziness after fall - Chemistry HDL cholesterol, serum, target level 40 mg/dL triglyceride, target level 150 mg/dL cholesterol, target level 200 mg/dL Encounters Code Encounter Date Provider Facility CPT-38129 Level 4 Est. Patient 15:18:19 CDT Robbie Busby MD [facility] CPT-22254 Level 3 Est. Patient 09:00:37 CDT Rober Rodríguez [facility] CPT-57378 Level 3 Est. Patient 16:07:10 CDT Robbie Busby MD [facility] CPT-36666 Level 4 Est. Patient 11:56:16 CDT Erin Garsia [facility] CPT-92164 Level 3 Est. Patient 17:48:02 CDT Robbie Busby MD [facility] CPT-45925 Level 4 Est. 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 Patient 09:16:37 CDT Robbie Busby MD [facility] CPT-83662 Level 3 Est. Patient 19:38:43 CDT Robbie Busby MD [facility] CPT-62163 Level 3 Est. Patient 11:53:38 CDT Robbie Busby MD [facility] CPT-61332 Level 4 Est. Patient 12:52:22 CDT Rober Rodríguez [facility] CPT-38834 Level 4 Est. Patient 22:55:17 CDT Robbie Busby MD [facility] CPT-76124 Level 3 Est. Patient 12:38:24 CDT Desmond Diaz DO [facility] CPT-22501 Level 4 Est. Patient 11:25:03 [employer] SUPERVISOR Robbie Busyb MD [facility] -[facility] CPT-82648 Level 4 Est. Patient 14:50:10 CDT Robbie Busby MD [facility] CPT-05074 Level 4 Est. Patient 23:30:43 CDT Robbie Busby MD [facility] CPT-57560 Level 4 Est. Patient 10:30:43 CDT Robbie Busby MD [facility] CPT-70202 Level 3 Est. Patient 17:08:12 CDT Alex Shaw [facility] CPT-53993 Level 4 Est. Patient 17:51:38 CDT Robbie Busby MD [facility] CPT-35877 Level 4 Est. Patient 14:00:21 CDT Robbie Busby MD [facility] CPT-56181 Level 4 Est. Patient 12:46:48 CDT Robbie Busby MD [facility] CPT-30215 Level 4 Est. Patient 13:34:33 CDT Robbie Busby MD [facility] CPT-28907 Level 4 Est. Patient 16:58:28 CDT Robbie Busby MD [facility] CPT-97543 Level 3 Est. Patient 19:36:53 CDT Alex Shaw [facility] CPT-75761 Level 3 Est. Patient 12:58:15 CDT Robbie Busby MD [facility] Procedures Code Procedure Name Date Entry Date Standard Description CPT-J1071 Depo Testosterone 200mg 08:30:01 CDT CPT-75007 Abx/Therapy Injection 08:30:01 CDT CPT-J1071 Depo Testosterone 200mg 08:24:00 CDT CPT-26623 Abx/Therapy Injection 08:24:00 CDT CPT-79947 Venipuncture Draw Fee 14:39:06 CDT CPT-74877 Ribs unilateral 2V - XRAY USE ONLY 12:10:11 CDT CPT-67759 First Vx - Ix admin for Medicare patients 16:32:53 CDT CPT-38347 Boostrix Intramuscular Suspension 5-2.5-18.5 16:32:53 CDT CPT-46230 TB Skin Test 11:42:28 CDT CPT-76377 Tdap 7yrs or > 11:42:28 CDT CPT-J0696 Rocephin 1000 mg (Ceftriaxone) 17:43:43 [employer] SUPERVISOR CPT-J1040 Depo Medrol 80 mg (Methyl Prednisolone Acetate) 17:43: 43 [employer] SUPERVISOR CPT-J1100 Decadron 8mg (Dexamethasone) 17:43:42 [employer] SUPERVISOR CPT-30104 Abx/Therapy Injection 17:43:42 [employer] SUPERVISOR CPT-28568 Abx/Therapy Injection 17:43:42 [employer] SUPERVISOR CPT-J1040 Depo Medrol 80 mg (Methyl Prednisolone Acetate) 09:43: 34 [employer] SUPERVISOR CPT-J1100 Decadron 8mg (Dexamethasone) 09:43:34 [employer] SUPERVISOR CPT-J0696 Rocephin 1gm Inj Solr 09:43:34 [employer] SUPERVISOR CPT-46753 Wound Culture - LAB USE ONLY 14:00:21 CDT CPT-I/D I/D Abscess 09:16:37 CDT CPT-15280 Venipuncture Draw Fee 15:20:23 CDT CPT-64863 Microalbumin - LAB USE ONLY 16:02:19 CDT CPT-23349 CBC - LAB USE ONLY 16:02:19 CDT CPT-66391 Venipuncture Draw Fee 16:02:19 CDT CPT-G0438 Initial Annual Wellness Exam 08:10:28 CDT CPT-86547 Venipuncture Draw Fee 13:07:17 CDT CPT-G0008 Administration of Influenza Virus Vaccine 16:09:59 CDT CPT-23502 Fluzone Quadrivalent Intramuscular Suspension 0.5 ML 16: 09:59 CDT CPT-77666 Spec Collection and Handling Fee 15:05:50 CDT
--- OUTSIDE RECORDS SUMMARY | 2018-04-18 11:43 | XMS REPORT | Clinical Summary ---
Author Author Admin, AKUA Organization [employer] Address Unknown Phone Unavailable Allergies, Adverse Reactions, [...] 2 weeks for low testosterone TESTOSTERONE CYPIONATE 83106011871 Active Zulema Blank LPN Active CYCLOBENZAPRINE HCL 10 MG ORAL TABS 1 po TID PRN muscle spasm/pain for 10 days CYCLOBENZAPRINE HCL 07199907914 Active JONATHAN Moncada Active GUAIFENESIN 600 MG [id number] 1 tab po q am GUAIFENESIN 59895061313 Active Rober Rodríguez AUCTION BLOCK CLERK Active FLUTICASONE PROPIONATE 50 MCG/ACT SUSP 2 sprays per nostril bid for 1 week, then 1 spray bid FLUTICASONE PROPIONATE 85073577956 Active Jillina Frazelariana GONZALEZN Active HYDRALAZINE HCL 25 MG ORAL TABS Take 1 tab BID. HYDRALAZINE HCL 89536003196 Active Jillina Anne GONZALEZN Active VITAMIN D3 73527 UNIT ORAL TABS 2 po weekly CHOLECALCIFEROL 02376706066 Active Robbie Busby MD Active OXYCODONE HCL ER 10 MG ORAL T12A 1 tab po 3 times qd. OXYCODONE HCL 29076836115 Active Robbie Busby MD Active NITROSTAT 0.4 MG SUBL PRN NITROGLYCERIN 24404478249 No Longer Active Robbie Busby MD Active LORATADINE 10 MG TABS 1 tablet by mouth daily for congestion and allergies. LORATADINE 24605728468 No Longer Active Robbie Busby MD Active FLONASE 50 MCG/ACT SUSP 1 spray each nostril twice daily for allergies and runny nose FLUTICASONE PROPIONATE 38347437961 No Longer Active Robbie Busby MD Active FIORICET 50-300-40 MG ORAL CAPS take 1 tab po qday prn migraines. UFTDUHCNPA-HHLA-AACHUKAS 17730532018 No Longer Active Robbie Busby MD Active VITAMIN D3 04356 UNIT CAPS 2 CAPS PO WEEKLY CHOLECALCIFEROL 19203793505 No Longer Active Robbie Busby MD Active CYCLOBENZAPRINE HCL 10 MG TABS 1 tablet by mouth three times daily as needed for muscle spasm/pain for 10 days CYCLOBENZAPRINE HCL 70443824650 No Longer Active Robbie Busby MD Active PREDNISONE 20 MG TAB take 3 tabs daily for 3 days, 2 tabs daily for 3 days, 1 tab daily for 3 days, 1/2 tab daily for 4 days PREDNISONE 63024419070 No Longer Active Erin Garsia APRN Active CLONIDINE HCL 0.2 MG ORAL TABS 1 TAB BY MOUTH EVERY 8 HOURS 12/29 CLONIDINE HCL 71224870552 No Longer Active Erin Garsia APRN Active MECLIZINE HCL 25 MG TAB one 4 times a day as needed for dizziness MECLIZINE HCL 65143542052 No Longer Active Erin Garsia APRN Active SPIRONOLACTONE 25 MG TAB 4 tablets by mouth daily SPIRONOLACTONE 61718594862 No Longer Active Erin Garsia APRN Active LEVAQUIN 500 MG TAB 1 tablet by mouth daily for 7 days LEVOFLOXACIN 40852502905 No Longer Active Erin Garsia APRN Active BACTRIM DS 800-160 MG TAB 1 tab by mouth twice daily TRIMETHOPRIM-SULFAMETHOXAZOLE 67583357350 No Longer Active Robbie Busby MD Active HYDRALAZINE HCL 50 MG ORAL TABS TWO BY MOUTH THREE TIMES DAILY HYDRALAZINE HCL 38881244219 No Longer Active Jillina Frazell AUCTION BLOCK CLERK Active HYDROCODONE-ACETAMINOPHEN 5-325 MG TABS 1 tab by mouth BID prn back pain 2013 HYDROCODONE-ACETAMINOPHEN 31811546328 No Longer Active Jillina Frazell AUCTION BLOCK CLERK Active HYDROCHLOROTHIAZIDE TABS Take one by mouth daily HYDROCHLOROTHIAZIDE TABS 37236631784 No Longer Active Jillina Frazell AUCTION BLOCK CLERK Active LAMISIL 125 MG ORAL PACK 1 TAB PO DAILY TERBINAFINE HCL 43249189316 No Longer Active Jillina Frazell AUCTION BLOCK CLERK Active TRILEPTAL 150 MG ORAL TABS 1 TAB PO Q HS OXCARBAZEPINE 11669318581 No Longer Active Jillina Frazell AUCTION BLOCK CLERK Active BETADINE 10 % EXT SOLN 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 POVIDONE-IODINE 74346312985 No Longer Active Jillina Frazell AUCTION BLOCK CLERK Active NYSTATIN 338434 UNIT/ML M/T SUSP 5mL po QID x 10 days NYSTATIN 09716609916 No Longer Active Erin Ady AUCTION BLOCK CLERK Active PREDNISONE 20 MG TAB 1 tablet twice daily for 2 days, then 1 tablet once daily for 2 days PREDNISONE 63743554839 No Longer Active Robbie Busby MD Active CEFDINIR 300 MG ORAL CAPS Take 1 cap po bid x 10 days CEFDINIR 20817214061 No Longer Active Robbie Busby MD Active AMLODIPINE BESYLATE 10 MG TABS 1 tablet by mouth daily AMLODIPINE BESYLATE 96982078648 Active Robbie Busby MD Active CARVEDILOL 25 MG TABS 1 & 1/2 TAB po BID CARVEDILOL 18942973380 Active Robbie Busby MD Active NEXIUM 40 MG CPDR 1 cap by mouth daily ESOMEPRAZOLE MAGNESIUM 42833185678 Active Robbie Busby MD Active PROTONIX 40 MG SOLR 1 po qday for acid reflux PANTOPRAZOLE SODIUM 57867258897 No Longer Active Gali Raida Active KEFLEX 500 MG CAP 1 po TID x 10 days CEPHALEXIN 75492307962 No Longer Active Robbie Busby MD Active TOPIRAMATE 50 MG ORAL TABS take 1 tab po BID for migraines. TOPIRAMATE 40182676618 Active Robbie Busby MD Active TEMAZEPAM 15 MG ORAL CAPS 1 TAB PO Q HS TEMAZEPAM 12004632179 Active Robbie Busby MD Active ALPRAZOLAM 2 MG ORAL TABS 1 TAB PO BID ALPRAZOLAM 67181833593 Active Robbie Busby MD Active FENOFIBRATE 145 MG TABS Take one by mouth daily FENOFIBRATE 78089296126 No Longer Active Robbie Busby MD Active SPIRONOLACTONE 50 MG TABS 1 tablet by mouth twice a day SPIRONOLACTONE 82823234996 No Longer Active Robbie Busby MD Active HYDRALAZINE HCL 25 MG TABS 1 tablet by mouth tid for hypertension HYDRALAZINE HCL 12799239282 No Longer Active Robbie Busby MD Active VIIBRYD 40 MG TABS take 1 tab po qday for depression. VILAZODONE HCL 28122627612 No Longer Active Robbie Busby MD Active TERBINAFINE HCL 250 MG TABS 1 tab po qday for foot infection 2014 TERBINAFINE HCL 21495843622 No Longer Active Robbie Busby MD Active GABAPENTIN 300 MG CAPS 1 po q hs for nerve pain GABAPENTIN 13211017860 Active Robbie Busby MD Active CHERATUSSIN AC 100-10 MG/5ML ORAL SOLN 7.5 mL PO q 4-6 hrs PRN cough GUAIFENESIN-CODEINE 58143800262 No Longer Active Robbie Busby MD Active AZITHROMYCIN 250 MG ORAL TABS 2 tablets PO today---then, 1 tablet PO daily x 4 more days (and 1 optional refill) AZITHROMYCIN 84113065982 No Longer Active Robbie Busby MD Active NORVASC 10 MG TAB 1 tablet by mouth daily AMLODIPINE BESYLATE 86904510557 No Longer Active Alex ALVAREZ Active IMDUR 60 MG TAB CR take 1 tab po qday for blood pressure ISOSORBIDE MONONITRATE Active Robbie Busby MD Active ISOSORBIDE DINITRATE 30 MG TABS Take one by mouth daily ISOSORBIDE DINITRATE 11660853913 No Longer Active Robbie Busby MD Active VIIBRYD 40 MG TABS 1 TA B PO DAILY VILAZODONE HCL 24558026891 Active Robbie Busby MD Active ZITHROMAX 250 MG TAB 2 po today, then 1 po q days 2-5 AZITHROMYCIN 10295226976 No Longer Active Robbie Busby MD Active [id number]-3 0.3 MG/24HR PTWK apply 2 patches q week for HTN CLONIDINE HCL 21515802020 Active Robbie Busby MD Active DOXAZOSIN MESYLATE 4 MG TABS Take one by mouth daily DOXAZOSIN MESYLATE 10263351981 Active Robbie Busby MD Active TOPROL XL 200 MG [id number] Take one by mouth daily METOPROLOL SUCCINATE 74949409579 Active Robbie Busby MD Active VENLAFAXINE HCL ER 150 MG [id number] Take one by mouth daily VENLAFAXINE HCL 75611550117 Active Robbie Busby MD Active LIPITOR 40 MG TABS Take one by mouth daily ATORVASTATIN CALCIUM 27198628101 Active Robbie Busby MD Active ISOSORBIDE DINITRATE 30 MG TABS Take one by mouth daily ISOSORBIDE DINITRATE 30 MG TABS 800430 ISOSORBIDE DINITRATE Inactive NORVASC 10 MG TAB 1 tablet by mouth daily NORVASC 10 MG TAB 972563 AMLODIPINE BESYLATE Inactive AZITHROMYCIN 250 MG ORAL TABS 2 tablets PO today---then, 1 tablet PO daily x 4 more days (and 1 optional refill) AZITHROMYCIN 250 MG ORAL TABS 5572532 AZITHROMYCIN Inactive CHERATUSSIN AC 100-10 MG/5ML ORAL SOLN 7.5 mL PO q 4-6 hrs PRN cough CHERATUSSIN AC 100-10 MG/5ML ORAL SOLN 449654 GUAIFENESIN- CODEINE Inactive VIIBRYD 40 MG TABS take 1 tab po qday for depression. VIIBRYD 40 MG TABS VILAZODONE HCL Inactive HYDRALAZINE HCL 25 MG TABS 1 tablet by mouth tid for hypertension HYDRALAZINE HCL 25 MG TABS 606843 HYDRALAZINE HCL Inactive SPIRONOLACTONE 50 MG TABS 1 tablet by mouth twice a day SPIRONOLACTONE 50 MG TABS 287437 SPIRONOLACTONE Inactive FENOFIBRATE 145 MG TABS Take one by mouth daily FENOFIBRATE 145 MG TABS 344244 FENOFIBRATE Inactive PROTONIX 40 MG SOLR 1 po qday for acid reflux PROTONIX 40 MG SOLR 273766 PANTOPRAZOLE SODIUM Inactive CEFDINIR 300 MG ORAL CAPS Take 1 cap po bid x 10 days CEFDINIR 300 MG ORAL CAPS 715975 CEFDINIR Inactive PREDNISONE 20 MG TAB 1 tablet twice daily for 2 days, then 1 tablet once daily for 2 days PREDNISONE 20 MG TAB 240414 PREDNISONE Inactive NYSTATIN 919244 UNIT/ML M/T SUSP 5mL po QID x 10 days NYSTATIN 116881 UNIT/ML M/T SUSP 692011 NYSTATIN Inactive BETADINE 10 % EXT SOLN 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 BETADINE 10 % EXT SOLN 7647145 POVIDONE-IODINE Inactive TRILEPTAL 150 MG ORAL TABS 1 TAB PO Q HS TRILEPTAL 150 MG ORAL TABS 928776 OXCARBAZEPINE Inactive LAMISIL 125 MG ORAL PACK 1 TAB PO DAILY LAMISIL 125 MG ORAL PACK TERBINAFINE HCL Inactive HYDROCHLOROTHIAZIDE TABS Take one by mouth daily HYDROCHLOROTHIAZIDE TABS HYDROCHLOROTHIAZIDE TABS Inactive HYDROCODONE-ACETAMINOPHEN 5-325 MG TABS 1 tab by mouth BID prn back pain 2013 HYDROCODONE-ACETAMINOPHEN 5-325 MG TABS 536548 HYDROCODONE -ACETAMINOPHEN Inactive HYDRALAZINE HCL 50 MG ORAL TABS TWO BY MOUTH THREE TIMES DAILY HYDRALAZINE HCL 50 MG ORAL TABS 903368 HYDRALAZINE HCL Inactive LEVAQUIN 500 MG TAB 1 tablet by mouth daily for 7 days LEVAQUIN 500 MG TAB 383305 LEVOFLOXACIN Inactive SPIRONOLACTONE 25 MG TAB 4 tablets by mouth daily SPIRONOLACTONE 25 MG TAB 889849 SPIRONOLACTONE Inactive MECLIZINE HCL 25 MG TAB one 4 times a day as needed for dizziness MECLIZINE HCL 25 MG TAB 833257 MECLIZINE HCL Inactive CLONIDINE HCL 0.2 MG ORAL TABS 1 TAB BY MOUTH EVERY 8 HOURS 12/29 CLONIDINE HCL 0.2 MG ORAL TABS 272511 CLONIDINE HCL Inactive CYCLOBENZAPRINE HCL 10 MG TABS 1 tablet by mouth three times daily as needed for muscle spasm/pain for 10 days CYCLOBENZAPRINE HCL 10 MG TABS 025060 CYCLOBENZAPRINE HCL Inactive VITAMIN D3 13148 UNIT CAPS 2 CAPS PO WEEKLY VITAMIN D3 91130 UNIT CAPS CHOLECALCIFEROL Inactive FIORICET 50-300-40 MG ORAL CAPS take 1 tab po qday prn migraines. FIORICET 50-300-40 MG ORAL CAPS 460168 [id number] Inactive FLONASE 50 MCG/ACT SUSP 1 spray each nostril twice daily for allergies and runny nose FLONASE 50 MCG/ACT SUSP 5862731 FLUTICASONE PROPIONATE Inactive LORATADINE 10 MG TABS 1 tablet by mouth daily for congestion and allergies. LORATADINE 10 MG TABS 816988 LORATADINE Inactive NITROSTAT 0.4 MG SUBL PRN NITROSTAT 0.4 MG SUBL 783675 NITROGLYCERIN Inactive ZITHROMAX 250 MG TAB 2 po today, then 1 po q days 2-5 ZITHROMAX 250 MG TAB 7730472 AZITHROMYCIN Inactive TERBINAFINE HCL 250 MG TABS 1 tab po qday for foot infection 2014 TERBINAFINE HCL 250 MG TABS 687598 TERBINAFINE HCL Inactive KEFLEX 500 MG CAP 1 po TID x 10 days KEFLEX 500 MG CAP 713540 CEPHALEXIN Inactive BACTRIM DS 800-160 MG TAB 1 tab by mouth twice daily BACTRIM DS 800-160 MG TAB 979442 TRIMETHOPRIM-SULFAMETHOXAZOLE Inactive PREDNISONE 20 MG TAB take 3 tabs daily for 3 days, 2 tabs daily for 3 days, 1 tab daily for 3 days, 1/2 tab daily for 4 days PREDNISONE 20 MG TAB 564552 PREDNISONE Inactive Advance Directives Directive Description Start [...] Range Description Lab Report: CBC - Hematology hemoglobin, blood 14.4 g/dL 13.5-17.5 hematocrit, blood 42.4 % 41.0-53.0 mean corpuscular volume, RBC 90 fL 80-97 mean corpuscular hemoglobin, RBC 30.4 pg 27.0-31.2 mean corpuscular hemoglobin concentration, RBC 33.9 G/DL % 31.8- 35.4 red blood cell distribution width 15.4 % 11.6-14.8 platelet count 229 10^3/MM^3 10*3/mm3 431-148 3433/09/06 erythrocyte (RBC) count 4.72 10^6/MM^3 10*6/mm3 4.69-6.13 leukocyte count, blood 9.7 10^3/MM^3 10*3/mm3 4.6-10.2 Lab Report: CBC W/DIFF, Comp. Metabolic Panel, CKI, UADIP W/MICRO, AUTO - Chemistry RBC, urine, dipstick 2+ Negative protein, total urine random 1+ mg/dL Negative sodium, serum 142 mmol/L 475-181 1272/07/17 carbon dioxide, venous blood 28.2 mmol/L 21.0-32.0 [...] 1.020 1.000-1.030 pH, urine, semiquantitative 5.0 5.0-8.5 glucose, urine, semiquantitative Negative Negative ketones, urine, by test strip Negative Negative bilirubin, urine Negative Negative urobilinogen, urine, semiquantitative (dipstick) 0.2 E.U./dL Normal leukocyte esterase, urine, by dipstick Negative Negative nitrite, urine, semiquantitative Negative Negative Lab Report: CBC-QUEST, COMPREHENSIVE METABOLIC [...] % 11.0-15.0 platelet count 185 THOUSAND/UL 10*3/mm3 510-479 1851/04/14 mean platelet volume 10.9 fL 7.5-12.5 Lab Report: LIPID PANEL, TSH/899, T4, FREE/866 - Chemistry cholesterol, serum 220 mg/dL 023-408 9453/04/14 HDL cholesterol, serum 30 mg/dL > OR=40 triglyceride, serum, fasting 466 mg/dL <150 LDL cholesterol, serum SEE NOTE mg/dL (calc) mg/dL <130 cholesterol/HDL ratio, serum 7.3 (calc) < OR=5.0 Lab Report: MICROALB/CREAT W/RATIO - Chemistry albumin/creatinine ratio, urine < 30 mg/g mg/g{creat} 0-29 Lab Report: MICROALB/CREAT W/RATIO - Lab microalbumin, urine 80 0-19 Lab Report: VITAMIN D, 25-HYDROXY/44592 - Chemistry vitamin D 25-hydroxy, serum 25 ng/mL 30-100 Office Visit: Confusion, dizziness after fall - Basic LDL target level 130 mg/dL Office Visit: Confusion, dizziness after fall - Chemistry HDL cholesterol, serum, target level 40 mg/dL triglyceride, target level 150 mg/dL cholesterol, target level 200 mg/dL Encounters Code Encounter Date Provider Facility CPT-75626 Level 4 Est. Patient 15:18:19 CDT Robbie Busby MD [facility] CPT-29240 Level 3 Est. Patient 09:00:37 CDT Rober Rodríguez [facility] CPT-93557 Level 3 Est. Patient 16:07:10 CDT Robbie Busby MD [facility] CPT-63506 Level 4 Est. Patient 11:56:16 CDT Erin Garsia [facility] CPT-60822 Level 3 Est. Patient 17:48:02 CDT Robbie Busby MD [facility] CPT-91480 Level 4 Est. Patient 12:00:49 SYSTEMS ADMINISTRATION ANALYST Rober Rodríguez [facility] CPT-68463 Level 3 Est. Patient 09:16:37 CDT Robbie Busby MD [facility] CPT-15208 Level 3 Est. Patient 19:38:43 CDT Robbie Busby MD [facility] CPT-90264 Level 3 Est. Patient 11:53:38 CDT Robbie Busby MD [facility] CPT-33490 Level 4 Est. Patient 12:52:22 CDT Rober Rodríguez [facility] CPT-44208 Level 4 Est. Patient 22:55:17 CDT Robbie Busby MD [facility] CPT-36672 Level 3 Est. Patient 12:38:24 CDT Desmond Diaz DO [facility] CPT-97434 Level 4 Est. Patient 11:25:03 SYSTEMS ADMINISTRATION ANALYST Robbie Busby MD [facility] CPT-19861 Level 4 Est. Patient 14:50:10 CDT Robbie Busby MD [facility] CPT-39265 Level 4 Est. Patient 23:30:43 CDT Robbie Busby MD [facility] CPT-97036 Level 4 Est. Patient 10:30:43 CDT Robbie Busby MD [facility] CPT-81899 Level 3 Est. Patient 17:08:12 CDT Alex Shaw [facility] CPT-14987 Level 4 Est. Patient 17:51:38 CDT Robbie Busby MD [facility] CPT-72147 Level 4 Est. Patient 14:00:21 CDT Robbie Busby MD [facility] CPT-62118 Level 4 Est. Patient 12:46:48 CDT Robbie Busby MD [facility] CPT-72606 Level 4 Est. Patient 13:34:33 CDT Robbie Busby MD [facility] CPT-01692 Level 4 Est. Patient 16:58:28 CDT Robbie Busby MD [facility] CPT-22493 Level 3 Est. Patient 19:36:53 CDT Alex Shaw [facility] CPT-06748 Level 3 Est. Patient 12:58:15 CDT Robbie Busby MD [facility] Procedures Code Procedure Name Date Entry Date Standard Description CPT-J1071 Depo Testosterone 200mg 08:24:00 CDT CPT-53372 Abx/Therapy Injection 08:24:00 CDT CPT-54574 Venipuncture Draw Fee 14:39:06 CDT CPT-67851 Ribs unilateral 2V - XRAY USE ONLY 12:10:11 CDT CPT-89924 First Vx - Ix admin for Medicare patients 16:32:53 CDT CPT-56355 Boostrix Intramuscular Suspension 5-2.5-18.5 16:32:53 CDT CPT-09126 TB Skin Test 11:42:28 CDT CPT-50502 Tdap 7yrs or > 11:42:28 CDT CPT-J0696 Rocephin 1000 mg (Ceftriaxone) 17:43:43 SYSTEMS ADMINISTRATION ANALYST CPT-J1040 Depo Medrol 80 mg (Methyl Prednisolone Acetate) 17:43: 43 SYSTEMS ADMINISTRATION ANALYST CPT-J1100 Decadron 8mg (Dexamethasone) 17:43:42 SYSTEMS ADMINISTRATION ANALYST CPT-09568 Abx/Therapy Injection 17:43:42 SYSTEMS ADMINISTRATION ANALYST CPT-06412 Abx/Therapy Injection 17:43:42 SYSTEMS ADMINISTRATION ANALYST CPT-J1040 Depo Medrol 80 mg (Methyl Prednisolone Acetate) 09:43: 34 SYSTEMS ADMINISTRATION ANALYST CPT-J1100 Decadron 8mg (Dexamethasone) 09:43:34 SYSTEMS ADMINISTRATION ANALYST CPT-J0696 Rocephin 1gm Inj Solr 09:43:34 SYSTEMS ADMINISTRATION ANALYST CPT-52003 Wound Culture - LAB USE ONLY 14:00:21 CDT CPT-I/D I/D Abscess 09:16:37 CDT CPT-38775 Venipuncture Draw Fee 15:20:23 CDT CPT-97742 Microalbumin - LAB USE ONLY 16:02:19 CDT CPT-57210 CBC - LAB USE ONLY 16:02:19 CDT CPT-24315 Venipuncture Draw Fee 16:02:19 CDT CPT-G0438 Initial Annual Wellness Exam 08:10:28 CDT CPT-81925 Venipuncture Draw Fee 13:07:17 CDT CPT-G0008 Administration of Influenza Virus Vaccine 16:09:59 CDT CPT-01271 Fluzone Quadrivalent Intramuscular Suspension 0.5 ML 16: 09:59 CDT CPT-56549 Spec Collection and Handling Fee 15:05:50 CDT
--- OUTSIDE RECORDS SUMMARY | 2018-04-18 11:45 | XMS REPORT | Clinical Summary ---
Author Author Admin, [facility] Organization [facility] Address [...] 1 tab by mouth twice daily TRIMETHOPRIM-SULFAMETHOXAZOLE [id number] No Longer Active Robbie Busby MD Active SPIRONOLACTONE 25 MG TAB 4 tablets by mouth daily SPIRONOLACTONE 60207468647 Active Robbie Busby MD Active HYDRALAZINE HCL 50 MG ORAL TABS TWO BY MOUTH THREE TIMES DAILY HYDRALAZINE HCL 36629783236 No Longer Active Jillina Frazell EXPELLER OPERATOR Active HYDROCODONE-ACETAMINOPHEN 5-325 MG TABS 1 tab by mouth BID prn back pain 2013 HYDROCODONE-ACETAMINOPHEN 15633737011 No Longer Active Jillina Frazell EXPELLER OPERATOR Active HYDROCHLOROTHIAZIDE TABS Take one by mouth daily HYDROCHLOROTHIAZIDE TABS 83282001092 No Longer Active Jillina Frazell EXPELLER OPERATOR Active LAMISIL 125 MG ORAL PACK 1 TAB PO DAILY TERBINAFINE HCL 96424992686 No Longer Active Jillina Frazell EXPELLER OPERATOR Active TRILEPTAL 150 MG ORAL TABS 1 TAB PO Q HS OXCARBAZEPINE 55567030667 No Longer Active Jillina Frazell EXPELLER OPERATOR Active BETADINE 10 % EXT SOLN 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 POVIDONE-IODINE 12781590302 No Longer Active Jillina Frazell EXPELLER OPERATOR Active NYSTATIN 576797 UNIT/ML M/T SUSP 5mL po QID x 10 days NYSTATIN 17371743183 No Longer Active Erin Garsia APRN Active PREDNISONE 20 MG TAB 1 tablet twice daily for 2 days, then 1 tablet once daily for 2 days PREDNISONE 88729236208 No Longer Active Robbie Busby MD Active CEFDINIR 300 MG ORAL CAPS Take 1 cap po bid x 10 days CEFDINIR 35658079662 No Longer Active Robbie Busby MD Active AMLODIPINE BESYLATE 10 MG TABS 1 tablet by mouth daily AMLODIPINE BESYLATE 94561765462 Active Robbie Busby MD Active CARVEDILOL 25 MG TABS 1 & 1/2 TAB po BID CARVEDILOL 55106958221 Active Robbie Busby MD Active VITAMIN D3 52506 UNIT CAPS 2 CAPS PO WEEKLY CHOLECALCIFEROL 45147194238 Active Erin Garsia APRN Active NEXIUM 40 MG CPDR 1 cap by mouth daily ESOMEPRAZOLE MAGNESIUM 90870579004 Active Gali Sruthi Active PROTONIX 40 MG SOLR 1 po qday for acid reflux PANTOPRAZOLE SODIUM 16957829159 No Longer Active Gali Torresjuan carlos Active KEFLEX 500 MG CAP 1 po TID x 10 days CEPHALEXIN 06801667466 No Longer Active Robbie Busby MD Active FIORICET 50-300-40 MG ORAL CAPS take 1 tab po qday prn migraines. PRMDATTRMN-HUXO-FNVTGPHH 57037988471 Active Robbie Busby MD Active TOPIRAMATE 50 MG ORAL TABS take 1 tab po BID for migraines. TOPIRAMATE 03164654464 Active Robbie Busby MD Active MECLIZINE HCL 25 MG TAB one 4 times a day as needed for dizziness MECLIZINE HCL 60534243738 Active Robbie Busby MD Active TEMAZEPAM 15 MG ORAL CAPS 1 TAB PO Q HS TEMAZEPAM 92213911225 Active Robbie Busby MD Active ALPRAZOLAM 2 MG ORAL TABS 1 TAB PO BID ALPRAZOLAM 79387599936 Active Robbie Busby MD Active FENOFIBRATE 145 MG TABS Take one by mouth daily FENOFIBRATE 51565195406 No Longer Active Robbie Busby MD Active SPIRONOLACTONE 50 MG TABS 1 tablet by mouth twice a day SPIRONOLACTONE 47499702303 No Longer Active Robbie Busby MD Active HYDRALAZINE HCL 25 MG TABS 1 tablet by mouth tid for hypertension HYDRALAZINE HCL 30897555779 No Longer Active Robbie Busby MD Active VIIBRYD 40 MG TABS take 1 tab po qday for depression. VILAZODONE HCL 86750078292 No Longer Active Robbie Busby MD Active TERBINAFINE HCL 250 MG TABS 1 tab po qday for foot infection 2014 TERBINAFINE HCL 63786483212 No Longer Active Robbie Busby MD Active GABAPENTIN 300 MG CAPS 1 po q hs for nerve pain GABAPENTIN 36406477096 Active Robbie Busby MD Active FLONASE 50 MCG/ACT SUSP 1 spray each nostril twice daily for allergies and runny nose FLUTICASONE PROPIONATE 79541521327 Active Robbie Busby MD Active CHERATUSSIN AC 100-10 MG/5ML ORAL SOLN 7.5 mL PO q 4-6 hrs PRN cough GUAIFENESIN-CODEINE 00538225527 No Longer Active Robbie Busby MD Active AZITHROMYCIN 250 MG ORAL TABS 2 tablets PO today---then, 1 tablet PO daily x 4 more days (and 1 optional refill) AZITHROMYCIN 40464382647 No Longer Active Robbie Busby MD Active CLONIDINE HCL 0.2 MG ORAL TABS 1 TAB BY MOUTH EVERY 8 HOURS CLONIDINE HCL 90433209579 Active Robbie Busby MD Active NORVASC 10 MG TAB 1 tablet by mouth daily AMLODIPINE BESYLATE 41518944860 No Longer Active Alex ALVAREZ Active IMDUR 60 MG TAB CR take 1 tab po qday for blood pressure ISOSORBIDE MONONITRATE Active Robbie Busby MD Active ISOSORBIDE DINITRATE 30 MG TABS Take one by mouth daily ISOSORBIDE DINITRATE 16172215592 No Longer Active Robbie Busby MD Active VIIBRYD 40 MG TABS 1 TA B PO DAILY VILAZODONE HCL 57799606047 Active Robbie Busby MD Active LORATADINE 10 MG TABS 1 tablet by mouth daily for congestion and allergies. LORATADINE 66999569349 Active Robbie Busby MD Active ZITHROMAX 250 MG TAB 2 po today, then 1 po q days 2-5 AZITHROMYCIN 83824388551 No Longer Active Robbie Busby MD Active [id number]-[id number]-5 0.3 MG/24HR PTWK apply 2 patches q week for HTN CLONIDINE HCL 62112917885 Active Robbie Busby MD Active NITROSTAT 0.4 MG SUBL PRN NITROGLYCERIN 38141655175 Active Robbie Busby MD Active DOXAZOSIN MESYLATE 4 MG TABS Take one by mouth daily DOXAZOSIN MESYLATE 33763536646 Active Robbie Busby MD Active TOPROL XL 200 MG [id number] Take one by mouth daily METOPROLOL SUCCINATE 08239884447 Active Robbie Busby MD Active VENLAFAXINE HCL ER 150 MG [id number] Take one by mouth daily VENLAFAXINE HCL 18454022428 Active Robbie Busby MD Active LIPITOR 40 MG TABS Take one by mouth daily ATORVASTATIN CALCIUM 59458081555 Active Robbie Busby MD Active ISOSORBIDE DINITRATE 30 MG TABS Take one by mouth daily ISOSORBIDE DINITRATE 30 MG TABS 149225 ISOSORBIDE DINITRATE Inactive NORVASC 10 MG TAB 1 tablet by mouth daily NORVASC 10 MG TAB 719625 AMLODIPINE BESYLATE Inactive AZITHROMYCIN 250 MG ORAL TABS 2 tablets PO today---then, 1 tablet PO daily x 4 more days (and 1 optional refill) AZITHROMYCIN 250 MG ORAL TABS 9321388 AZITHROMYCIN Inactive CHERATUSSIN AC 100-10 MG/5ML ORAL SOLN 7.5 mL PO q 4-6 hrs PRN cough CHERATUSSIN AC 100-10 MG/5ML ORAL SOLN 579559 GUAIFENESIN- CODEINE Inactive VIIBRYD 40 MG TABS take 1 tab po qday for depression. VIIBRYD 40 MG TABS VILAZODONE HCL Inactive HYDRALAZINE HCL 25 MG TABS 1 tablet by mouth tid for hypertension HYDRALAZINE HCL 25 MG TABS 432214 HYDRALAZINE HCL Inactive SPIRONOLACTONE 50 MG TABS 1 tablet by mouth twice a day SPIRONOLACTONE 50 MG TABS 818265 SPIRONOLACTONE Inactive FENOFIBRATE 145 MG TABS Take one by mouth daily FENOFIBRATE 145 MG TABS 275091 FENOFIBRATE Inactive PROTONIX 40 MG SOLR 1 po qday for acid reflux PROTONIX 40 MG SOLR 511436 PANTOPRAZOLE SODIUM Inactive CEFDINIR 300 MG ORAL CAPS Take 1 cap po bid x 10 days CEFDINIR 300 MG ORAL CAPS 749803 CEFDINIR Inactive PREDNISONE 20 MG TAB 1 tablet twice daily for 2 days, then 1 tablet once daily for 2 days PREDNISONE 20 MG TAB 083112 PREDNISONE Inactive NYSTATIN 975480 UNIT/ML M/T SUSP 5mL po QID x 10 days NYSTATIN 960217 UNIT/ML M/T SUSP 509539 NYSTATIN Inactive BETADINE 10 % EXT SOLN 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 BETADINE 10 % EXT SOLN 5668746 POVIDONE-IODINE Inactive TRILEPTAL 150 MG ORAL TABS 1 TAB PO Q HS TRILEPTAL 150 MG ORAL TABS 885936 OXCARBAZEPINE Inactive LAMISIL 125 MG ORAL PACK 1 TAB PO DAILY LAMISIL 125 MG ORAL PACK TERBINAFINE HCL Inactive HYDROCHLOROTHIAZIDE TABS Take one by mouth daily HYDROCHLOROTHIAZIDE TABS HYDROCHLOROTHIAZIDE TABS Inactive HYDROCODONE-ACETAMINOPHEN 5-325 MG TABS 1 tab by mouth BID prn back pain 2013 HYDROCODONE-ACETAMINOPHEN 5-325 MG TABS 301532 HYDROCODONE -ACETAMINOPHEN Inactive HYDRALAZINE HCL 50 MG ORAL TABS TWO BY MOUTH THREE TIMES DAILY HYDRALAZINE HCL 50 MG ORAL TABS 727911 HYDRALAZINE HCL Inactive ZITHROMAX 250 MG TAB 2 po today, then 1 po q days 2-5 ZITHROMAX 250 MG TAB 8930456 AZITHROMYCIN Inactive TERBINAFINE HCL 250 MG TABS 1 tab po qday for foot infection 2014 TERBINAFINE HCL 250 MG TABS 792554 TERBINAFINE HCL Inactive KEFLEX 500 MG CAP 1 po TID x 10 days KEFLEX 500 MG CAP 058896 CEPHALEXIN Inactive BACTRIM DS 800-160 MG TAB 1 tab by mouth twice daily BACTRIM DS 800-160 MG TAB 171873 TRIMETHOPRIM-SULFAMETHOXAZOLE Inactive Advance Directives Directive Description Start [...] Acid - Chemistry sodium, serum 139 mmol/L 068-361 9922/04/22 carbon dioxide, venous blood 29.4 mmol/L 21.0-32.0 [...] to Follow Negative Lab Report: VITAMIN D, 25-HYDROXY/89436 - Chemistry vitamin D 25-hydroxy, serum 23 ng/mL 30-100 Encounters Code Encounter Date Provider Facility [facility]-[id number] Level 3 Est. Patient 09:16:37 CDT Robbie Busby MD [facility]-83653 Level 3 Est. Patient 19:38:43 CDT Robbie Busby MD [facility]-29539 Level 3 Est. Patient 11:53:38 CDT Robbie Busby MD [facility]-68927 Level 4 Est. Patient 12:52:22 CDT Rober Rodríguez APRN [facility] CPT-39678 Level 4 Est. Patient 22:55:17 CDT Robbie Busby MD [facility] CPT-01917 Level 3 Est. Patient 12:38:24 CDT Desmond Diaz DO [facility] CPT-45016 Level 4 Est. 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 Patient 14:50:10 CDT Robbie Busby MD [facility] CPT-59328 Level 4 Est. Patient 23:30:43 CDT Robbie Busby MD [facility] CPT-43749 Level 4 Est. Patient 10:30:43 CDT Robbie Busby MD [facility] CPT-42968 Level 3 Est. Patient 17:08:12 CDT Alex ALVAREZ [facility] CPT-85220 Level 4 Est. Patient 17:51:38 CDT Robbie Busby MD [facility] CPT-32069 Level 4 Est. Patient 14:00:21 CDT Robbie Busby MD [facility] CPT-81917 Level 4 Est. Patient 12:46:48 CDT Robbie Busby MD [facility] CPT-42379 Level 4 Est. Patient 13:34:33 CDT Robbie Busby MD [facility] CPT-29227 Level 4 Est. Patient 16:58:28 CDT Robbie Busby MD [facility] CPT-96558 Level 3 Est. Patient 19:36:53 CDT Alex ALVAREZ [facility] CPT-77092 Level 3 Est. Patient 12:58:15 CDT Robbie Busby MD [facility] Procedures Code Procedure Name Date Entry Date Standard Description CPT-79214 Wound Culture - LAB USE ONLY 14:00:21 CDT CPT-I/D I/D Abscess 09:16:37 CDT CPT-63230 Venipuncture Draw Fee 15:20:23 CDT CPT-66133 Microalbumin - LAB USE ONLY 16:02:19 CDT CPT-34769 CBC - LAB USE ONLY 16:02:19 CDT CPT-50140 Venipuncture Draw Fee 16:02:19 CDT CPT-G0438 Initial Annual Wellness Exam 08:10:28 CDT CPT-10411 Venipuncture Draw Fee 13:07:17 CDT CPT-G0008 Administration of Influenza Virus Vaccine 16:09:59 CDT CPT-50440 Fluzone Quadrivalent Intramuscular Suspension 0.5 ML 16: 09:59 CDT CPT-78875 Spec Collection and Handling Fee 15:05:50 CDT
--- OUTSIDE RECORDS SUMMARY | 2018-04-18 11:45 | XMS REPORT | Clinical Summary ---
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 Desmond Diaz DO Other malignant secondary hypertension Tachycardia 785.0 Active Rober Rodríguez [employer] SUPERVISOR Tachycardia, unspecified Insect bite, infected 919.5 Resolved Desmond Diaz DO Insect bite, nonvenomous, of other, multiple, and unspecified sites, infected Abscess, skin 682.9 Resolved Desmond Diaz DO Cellulitis and abscess of unspecified sites URI 465.9 Resolved Desmond Diaz DO Acute upper respiratory infections of unspecified site Hypertension 401.9 Active Rober Rodríguez [employer] SUPERVISOR Unspecified essential hypertension Sinusitis - acute 461.9 [...] Hypogonadism, low testosterone 257.2 Active Erin Garsia [employer] SUPERVISOR Other testicular hypofunction Low back pain, chronic 724.2 Active Robbie Busby MD Lumbago Bronchitis-Acute 466.0 Inactive Desmond Diaz DO Acute bronchitis Polydipsia 783.5 Active Desmond Diaz DO Polydipsia Type 2 diabetes mellitus with hyperglycemia Active Robbie Busby MD Sinusitis ICD-461.9 Inactive Emily Atwood LPN 2017 Low back pain, acute ICD-724.2 Inactive Emily Atwood LPN Low back pain, chronic ICD-724.2 Inactive Emily Atwood INTEGRITY SPECIALIST Bronchitis, acute ICD-466.0 Inactive Emily Atwood INTEGRITY SPECIALIST Onychomycosis, toenails ICD-110.1 Inactive Emily Atwood INTEGRITY SPECIALIST Dizziness ICD-780.4 Inactive Emily Atwood INTEGRITY SPECIALIST 2017 Folliculitis ICD-704.8 Inactive Emily Atwood INTEGRITY SPECIALIST Pharyngitis-Acute ICD-462 Inactive Emily Atwood INTEGRITY SPECIALIST Fatigue ICD-780.79 Inactive Emily Atwood INTEGRITY SPECIALIST 09/20 Hypertension, secondary, malignant ICD-405.09 Inactive Emily Atwood INTEGRITY SPECIALIST Insect bite, infected ICD-919.5 Inactive Emily Atwood INTEGRITY SPECIALIST Abscess, skin ICD-682.9 Inactive Emily Atwood INTEGRITY SPECIALIST URI ICD-465.9 Inactive Emily Atwood INTEGRITY SPECIALIST Sinusitis - acute ICD-461.9 Inactive Emily Atwood INTEGRITY SPECIALIST Acute confusion ICD-293.0 Inactive Emily Atwood INTEGRITY SPECIALIST Headache ICD-784.0 Inactive Emily Atwood INTEGRITY SPECIALIST 09/20 Back pain ICD-724.5 Inactive Emily Atwood INTEGRITY SPECIALIST 2017 Rib pain, right sided ICD-786.50 Inactive Emily Atwood INTEGRITY SPECIALIST Myalgias ICD-729.1 Inactive Emily Atwood LPN 09/20 URI ICD-465.9 Inactive Emily Atwood LPN Bronchitis-Acute ICD-466.0 Inactive Desmond Diaz DO Medication List Medication Instructions Start Date Stop Date Generic Name NDC Status Provider Patient Instruction CYCLOBENZAPRINE HCL 10 MG ORAL TABLET 1 tablet by mouth three times daily as needed for muscle spasm/pain CYCLOBENZAPRINE HCL 38527963537 Active Robbie Busby MD Active METFORMIN HCL 500 MG ORAL TABLET 1 tablet by mouth daily for diabetes type 2 METFORMIN HCL 35617414018 Active Robbie Busby MD Active SINGULAIR 10 MG ORAL TABLET 1 po qday for allergies. MONTELUKAST SODIUM 52065900458 Active Robbie Busby MD Active PREDNISONE 20 MG ORAL TABLET two tabs by mouth today, then one tab by mouth days two and three PREDNISONE 95948664428 No Longer Active Robbie Busby MD Active TOPIRAMATE 50 MG ORAL TABLET 1 po BID for migraines TOPIRAMATE 28352759042 Active JONATHAN Moncada Active AZITHROMYCIN 250 MG ORAL TABLET 2 po qd x 1 day, then 1 po qd x 4 days 09/20 AZITHROMYCIN 32130519866 No Longer Active Desmond Diaz DO Active TOPIRAMATE 50 MG ORAL TABLET take 1 tab po BID for migraines. TOPIRAMATE 33378470842 No Longer Active Desmond Diaz DO Active CYCLOBENZAPRINE HCL 10 MG ORAL TABLET 1 po TID PRN muscle spasm/pain for 10 days CYCLOBENZAPRINE HCL 37744500175 No Longer Active Desmond Diaz DO Active GUAIFENESIN ER 600 MG ORAL TABLET EXTENDED RELEASE 12 HOUR 1 tab po q am 2016 GUAIFENESIN 22624993160 No Longer Active Robbie Busby MD Active DIVALPROEX SODIUM ER 500 MG ORAL TABLET EXTENDED RELEASE 24 HOUR Once daily DIVALPROEX SODIUM 28250611132 Active Robbie Busby MD Active DEPO-TESTOSTERONE 200 MG/ML INTRAMUSCULAR SOLUTION 1 IM Injections every 2 weeks for low testosterone TESTOSTERONE CYPIONATE 29198722306 Active Zulema Blank LPN Active FLUTICASONE PROPIONATE 50 MCG/ACT NASAL SUSPENSION 2 sprays per nostril bid for 1 week, then 1 spray bid FLUTICASONE PROPIONATE 54863055902 Active Rober Rodríguez APRN Active HYDRALAZINE HCL 25 MG ORAL TABLET Take 1 tab BID. HYDRALAZINE HCL 09021655430 Active Rober Rodríguez APRN Active VITAMIN D3 28914 UNIT ORAL TABLET 2 po weekly CHOLECALCIFEROL 24877967261 Active Robbie Busby MD Active OXYCODONE HCL ER 10 MG ORAL TABLET ER 12 HOUR ABUSE-DETERRENT 1 tab po 3 times qd. OXYCODONE HCL 51610015775 Active Robbie Busby MD Active NITROSTAT 0.4 MG SUBLINGUAL TABLET SUBLINGUAL PRN NITROGLYCERIN 36045250571 No Longer Active Robbie Busby MD Active LORATADINE 10 MG ORAL TABLET 1 tablet by mouth daily for congestion and allergies. LORATADINE 54069502041 No Longer Active Robbie Busby MD Active FLONASE 50 MCG/ACT NASAL SUSPENSION 1 spray each nostril twice daily for allergies and runny nose FLUTICASONE PROPIONATE 79014629117 No Longer Active Robbie Busby MD Active FIORICET 50-300-40 MG ORAL CAPSULE take 1 tab po qday prn migraines. SLGAYPKIUO-AMVS-AIPIXVOR 14417493983 No Longer Active Robbie Busby MD Active VITAMIN D3 80876 UNIT ORAL CAPSULE 2 CAPS PO WEEKLY CHOLECALCIFEROL 66259789566 No Longer Active Robbie Busby MD Active CYCLOBENZAPRINE HCL 10 MG ORAL TABLET 1 tablet by mouth three times daily as needed for muscle spasm/pain for 10 days CYCLOBENZAPRINE HCL 47372598567 No Longer Active Robbie Busby MD Active PREDNISONE 20 MG ORAL TABLET take 3 tabs daily for 3 days, 2 tabs daily for 3 days, 1 tab daily for 3 days, 1/2 tab daily for 4 days PREDNISONE 77861181577 No Longer Active Erin Garsia APRN Active CLONIDINE HCL 0.2 MG ORAL TABLET 1 TAB BY MOUTH EVERY 8 HOURS CLONIDINE HCL 78027568892 No Longer Active Erin Garsia APRN Active MECLIZINE HCL 25 MG ORAL TABLET one 4 times a day as needed for dizziness MECLIZINE HCL 38019475377 No Longer Active Erin Garsia APRN Active SPIRONOLACTONE 25 MG ORAL TABLET 4 tablets by mouth daily SPIRONOLACTONE 27381747991 No Longer Active Erin Garsia APRN Active LEVAQUIN 500 MG ORAL TABLET 1 tablet by mouth daily for 7 days LEVOFLOXACIN 60464575886 No Longer Active Erin Garsia APRN Active BACTRIM DS 800-160 MG ORAL TABLET 1 tab by mouth twice daily 2015 TRIMETHOPRIM-SULFAMETHOXAZOLE 63883745335 No Longer Active Robbie Busby MD Active HYDRALAZINE HCL 50 MG ORAL TABLET TWO BY MOUTH THREE TIMES DAILY HYDRALAZINE HCL 10513569258 No Longer Active Rober Rodríguez APRN Active HYDROCODONE-ACETAMINOPHEN 5-325 MG ORAL TABLET 1 tab by mouth BID prn back pain HYDROCODONE-ACETAMINOPHEN 36814326533 No Longer Active Jillina Anne GONZALEZN Active HYDROCHLOROTHIAZIDE TABLET Take one by mouth daily HYDROCHLOROTHIAZIDE TABS 02835645856 No Longer Active Andrellld Poolel [employer] SUPERVISOR Active LAMISIL 125 MG ORAL PACKET 1 TAB PO DAILY TERBINAFINE HCL 32351916261 No Longer Active Rober Rodríguez APRN Active TRILEPTAL 150 MG ORAL TABLET 1 TAB PO Q HS OXCARBAZEPINE 38665501267 No Longer Active Jillld Poolel [employer]PATCH SUPERVISOR Active BETADINE 10 % EXTERNAL SOLUTION 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 07/29 POVIDONE-IODINE 34175589528 No Longer Active Rober Rodríguez APRN Active NYSTATIN 964785 UNIT/ML MOUTH/THROAT SUSPENSION 5mL po QID x 10 days NYSTATIN 44856477300 No Longer Active Erin Garsia APRN Active PREDNISONE 20 MG ORAL TABLET 1 tablet twice daily for 2 days, then 1 tablet once daily for 2 days PREDNISONE 48157725242 No Longer Active Robbie Busby MD Active CEFDINIR 300 MG ORAL CAPSULE Take 1 cap po bid x 10 days CEFDINIR 10919877885 No Longer Active Robbie Busby MD Active AMLODIPINE BESYLATE 10 MG ORAL TABLET 1 tablet by mouth daily AMLODIPINE BESYLATE 46526626763 Active Robbie Busby MD Active CARVEDILOL 25 MG ORAL TABLET 1 & 1/2 TAB po BID CARVEDILOL 41960785968 Active Robbie Busby MD Active NEXIUM 40 MG ORAL CAPSULE DELAYED RELEASE 1 cap by mouth daily ESOMEPRAZOLE MAGNESIUM 80475489310 Active Robbie Busby MD Active PROTONIX 40 MG INTRAVENOUS SOLUTION RECONSTITUTED 1 po qday for acid reflux PANTOPRAZOLE SODIUM 14956177396 No Longer Active Gali Raida Active KEFLEX 500 MG ORAL CAPSULE 1 po TID x 10 days CEPHALEXIN 83626323547 No Longer Active Robbie Busby MD Active TEMAZEPAM 15 MG ORAL CAPSULE 1 TAB PO Q HS TEMAZEPAM 83362253274 Active Robbie Busby MD Active ALPRAZOLAM 2 MG ORAL TABLET 1 TAB PO BID ALPRAZOLAM 35324482092 Active Robbie Busby MD Active FENOFIBRATE 145 MG ORAL TABLET Take one by mouth daily FENOFIBRATE 96673367085 No Longer Active Robbie Busby MD Active SPIRONOLACTONE 50 MG ORAL TABLET 1 tablet by mouth twice a day SPIRONOLACTONE 82061622216 No Longer Active Robbie Busby MD Active HYDRALAZINE HCL 25 MG ORAL TABLET 1 tablet by mouth tid for hypertension 2013 HYDRALAZINE HCL 39775223322 No Longer Active Robbie Busby MD Active VIIBRYD 40 MG ORAL TABLET take 1 tab po qday for depression. 2014 VILAZODONE HCL 39078435579 No Longer Active Robbie Busby MD Active TERBINAFINE HCL 250 MG ORAL TABLET 1 tab po qday for foot infection TERBINAFINE HCL 31259113999 No Longer Active Robbie Busby MD Active GABAPENTIN 300 MG ORAL CAPSULE 1 po q hs for nerve pain GABAPENTIN 01837994984 Active Robbie Busby MD Active CHERATUSSIN AC 100-10 MG/5ML ORAL SOLUTION 7.5 mL PO q 4-6 hrs PRN cough 2014 GUAIFENESIN-CODEINE 39645480494 No Longer Active Robbie Busby MD Active AZITHROMYCIN 250 MG ORAL TABLET 2 tablets PO today---then, 1 tablet PO daily x 4 more days (and 1 optional refill) AZITHROMYCIN 47408303486 No Longer Active Robbie Busby MD Active NORVASC 10 MG ORAL TABLET 1 tablet by mouth daily AMLODIPINE BESYLATE 34899317868 No Longer Active Alex ALVAREZ Active IMDUR 60 MG ORAL TABLET EXTENDED RELEASE 24 HOUR take 1 tab po qday for blood pressure ISOSORBIDE MONONITRATE 09729077671 Active Robbie Busby MD Active ISOSORBIDE DINITRATE 30 MG ORAL TABLET Take one by mouth daily ISOSORBIDE DINITRATE 16807619214 No Longer Active Robbie Busby MD Active VIIBRYD 40 MG ORAL TABLET 1 TA B PO DAILY VILAZODONE HCL 44523686411 Active Robbie Busby MD Active ZITHROMAX 250 MG ORAL TABLET 2 po today, then 1 po q days 2-5 AZITHROMYCIN 51494323607 No Longer Active Robbie Busby MD Active [id number] 0.3 MG/24HR TRANSDERMAL PATCH WEEKLY apply 2 patches q week for HTN CLONIDINE HCL 84101531015 Active Robbie Busby MD Active DOXAZOSIN MESYLATE 4 MG ORAL TABLET Take one by mouth daily DOXAZOSIN MESYLATE 20440048706 Active Robbie Busby MD Active TOPROL XL 200 MG ORAL TABLET EXTENDED RELEASE 24 HOUR Take one by mouth daily METOPROLOL SUCCINATE 96464252132 Active Robbie Busby MD Active VENLAFAXINE HCL ER 150 MG ORAL TABLET EXTENDED RELEASE 24 HOUR Take one by mouth daily VENLAFAXINE HCL 93532255061 Active Robbie Busby MD Active LIPITOR 40 MG ORAL TABLET Take one by mouth daily ATORVASTATIN CALCIUM 76692010822 Active Robbie Busby MD Active ISOSORBIDE DINITRATE 30 MG ORAL TABLET Take one by mouth daily ISOSORBIDE DINITRATE 30 MG ORAL TABLET 542950 ISOSORBIDE DINITRATE Inactive NORVASC 10 MG ORAL TABLET 1 tablet by mouth daily NORVASC 10 MG ORAL TABLET 173836 AMLODIPINE BESYLATE Inactive AZITHROMYCIN 250 MG ORAL TABLET 2 tablets PO today---then, 1 tablet PO daily x 4 more days (and 1 optional refill) AZITHROMYCIN 250 MG ORAL TABLET 414185 AZITHROMYCIN Inactive CHERATUSSIN AC 100-10 MG/5ML ORAL SOLUTION 7.5 mL PO q 4-6 hrs PRN cough 2014 CHERATUSSIN AC 100-10 MG/5ML ORAL SOLUTION 474135 GUAIFENESIN-CODEINE Inactive VIIBRYD 40 MG ORAL TABLET take 1 tab po qday for depression. 2014 VIIBRYD 40 MG ORAL TABLET VILAZODONE HCL Inactive HYDRALAZINE HCL 25 MG ORAL TABLET 1 tablet by mouth tid for hypertension 2013 HYDRALAZINE HCL 25 MG ORAL TABLET 454012 HYDRALAZINE HCL Inactive SPIRONOLACTONE 50 MG ORAL TABLET 1 tablet by mouth twice a day SPIRONOLACTONE 50 MG ORAL TABLET 817674 SPIRONOLACTONE Inactive FENOFIBRATE 145 MG ORAL TABLET Take one by mouth daily FENOFIBRATE 145 MG ORAL TABLET 890160 FENOFIBRATE Inactive PROTONIX 40 MG INTRAVENOUS SOLUTION RECONSTITUTED 1 po qday for acid reflux PROTONIX 40 MG INTRAVENOUS SOLUTION RECONSTITUTED 171601 PANTOPRAZOLE SODIUM Inactive CEFDINIR 300 MG ORAL CAPSULE Take 1 cap po bid x 10 days CEFDINIR 300 MG ORAL CAPSULE 186565 CEFDINIR Inactive PREDNISONE 20 MG ORAL TABLET 1 tablet twice daily for 2 days, then 1 tablet once daily for 2 days PREDNISONE 20 MG ORAL TABLET 260943 PREDNISONE Inactive NYSTATIN 580480 UNIT/ML MOUTH/THROAT SUSPENSION 5mL po QID x 10 days NYSTATIN 033055 UNIT/ML MOUTH/THROAT SUSPENSION 162988 NYSTATIN Inactive BETADINE 10 % EXTERNAL SOLUTION 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 07/29 BETADINE 10 % EXTERNAL SOLUTION 5294477 POVIDONE-IODINE Inactive TRILEPTAL 150 MG ORAL TABLET 1 TAB PO Q HS TRILEPTAL 150 MG ORAL TABLET 745844 OXCARBAZEPINE Inactive LAMISIL 125 MG ORAL PACKET 1 TAB PO DAILY LAMISIL 125 MG ORAL PACKET TERBINAFINE HCL Inactive HYDROCHLOROTHIAZIDE TABLET Take one by mouth daily HYDROCHLOROTHIAZIDE TABLET HYDROCHLOROTHIAZIDE TABS Inactive HYDROCODONE-ACETAMINOPHEN 5-325 MG ORAL TABLET 1 tab by mouth BID prn back pain HYDROCODONE-ACETAMINOPHEN 5-325 MG ORAL TABLET 043382 HYDROCODONE-ACETAMINOPHEN Inactive HYDRALAZINE HCL 50 MG ORAL TABLET TWO BY MOUTH THREE TIMES DAILY HYDRALAZINE HCL 50 MG ORAL TABLET 418298 HYDRALAZINE HCL Inactive LEVAQUIN 500 MG ORAL TABLET 1 tablet by mouth daily for 7 days LEVAQUIN 500 MG ORAL TABLET 874396 LEVOFLOXACIN Inactive SPIRONOLACTONE 25 MG ORAL TABLET 4 tablets by mouth daily SPIRONOLACTONE 25 MG ORAL TABLET 990171 SPIRONOLACTONE Inactive MECLIZINE HCL 25 MG ORAL TABLET one 4 times a day as needed for dizziness MECLIZINE HCL 25 MG ORAL TABLET 523119 MECLIZINE HCL Inactive CLONIDINE HCL 0.2 MG ORAL TABLET 1 TAB BY MOUTH EVERY 8 HOURS CLONIDINE HCL 0.2 MG ORAL TABLET 976001 CLONIDINE HCL Inactive CYCLOBENZAPRINE HCL 10 MG ORAL TABLET 1 tablet by mouth three times daily as needed for muscle spasm/pain for 10 days CYCLOBENZAPRINE HCL 10 MG ORAL TABLET 098968 CYCLOBENZAPRINE HCL Inactive VITAMIN D3 44136 UNIT ORAL CAPSULE 2 CAPS PO WEEKLY VITAMIN D3 84854 UNIT ORAL CAPSULE CHOLECALCIFEROL Inactive FIORICET 50-300-40 MG ORAL CAPSULE take 1 tab po qday prn migraines. FIORICET 50-300-40 MG ORAL CAPSULE 570608 BUTALBITAL-APAP- CAFFEINE Inactive FLONASE 50 MCG/ACT NASAL SUSPENSION 1 spray each nostril twice daily for allergies and runny nose FLONASE 50 MCG/ACT NASAL SUSPENSION 5157024 FLUTICASONE PROPIONATE Inactive LORATADINE 10 MG ORAL TABLET 1 tablet by mouth daily for congestion and allergies. LORATADINE 10 MG ORAL TABLET 577159 LORATADINE Inactive NITROSTAT 0.4 MG SUBLINGUAL TABLET SUBLINGUAL PRN NITROSTAT 0.4 MG SUBLINGUAL TABLET SUBLINGUAL 905671 NITROGLYCERIN Inactive GUAIFENESIN ER 600 MG ORAL TABLET EXTENDED RELEASE 12 HOUR 1 tab po q am 2016 GUAIFENESIN ER 600 MG ORAL TABLET EXTENDED RELEASE 12 HOUR GUAIFENESIN Inactive CYCLOBENZAPRINE HCL 10 MG ORAL TABLET 1 po TID PRN muscle spasm/pain for 10 days CYCLOBENZAPRINE HCL 10 MG ORAL TABLET 300201 CYCLOBENZAPRINE HCL Inactive TOPIRAMATE 50 MG ORAL TABLET take 1 tab po BID for migraines. TOPIRAMATE 50 MG ORAL TABLET 275319 TOPIRAMATE Inactive PREDNISONE 20 MG ORAL TABLET two tabs by mouth today, then one tab by mouth days two and three PREDNISONE 20 MG ORAL TABLET 713965 PREDNISONE Inactive ZITHROMAX 250 MG ORAL TABLET 2 po today, then 1 po q days 2-5 ZITHROMAX 250 MG ORAL TABLET 256860 AZITHROMYCIN Inactive TERBINAFINE HCL 250 MG ORAL TABLET 1 tab po qday for foot infection TERBINAFINE HCL 250 MG ORAL TABLET 175791 TERBINAFINE HCL Inactive KEFLEX 500 MG ORAL CAPSULE 1 po TID x 10 days KEFLEX 500 MG ORAL CAPSULE 248501 CEPHALEXIN Inactive BACTRIM DS 800-160 MG ORAL TABLET 1 tab by mouth twice daily 2015 BACTRIM DS 800-160 MG ORAL TABLET 751552 TRIMETHOPRIM- SULFAMETHOXAZOLE Inactive PREDNISONE 20 MG ORAL TABLET take 3 tabs daily for 3 days, 2 tabs daily for 3 days, 1 tab daily for 3 days, 1/2 tab daily for 4 days PREDNISONE 20 MG ORAL TABLET 273233 PREDNISONE Inactive AZITHROMYCIN 250 MG ORAL TABLET 2 po qd x 1 day, then 1 po qd x 4 days 09/20 AZITHROMYCIN 250 MG ORAL TABLET 997183 AZITHROMYCIN Inactive Advance Directives Directive Description Start [...] AUTO - Chemistry sodium, serum 142 mmol/L 729-220 7603/07/17 carbon dioxide, venous blood 28.2 mmol/L 21.0-32.0 [...] Panel, CKI, UADIP W/MICRO, AUTO - Hematology lymphocytes as percent of blood leukocytes 35.6 % 20.0-40.0 monocytes as percent of blood leukocytes 6.8 % 2.0-10.0 neutrophils as percent of blood leukocytes 55.7 % 40.0-80.0 leukocyte count, blood 10.9 10^3/MM^3 10*3/mm3 4.6-10.2 erythrocyte (RBC) count 4.83 10^6/MM^3 10*6/mm3 4.50-6.50 [...] % 11.0-15.0 platelet count 185 THOUSAND/UL 10*3/mm3 189-999 9967/04/14 mean platelet volume 10.9 fL 7.5-12.5 Lab Report: HGBA1C, Basic Metabolic Panel - Chemistry chloride, serum 103 mmol/L 98-107 carbon dioxide, venous blood 26.9 mmol/L 21.0-32.0 blood glucose 106 mg/dL 65-110 calcium, serum 9.0 mg/dL 8.5-10.1 urea nitrogen, blood 20 mg/dL 7-18 creatinine, serum 1.46 mg/dL 0.60-1.30 hemoglobin A1C, blood, as % of total hemoglobin 6.9 % 4.3-6.0 sodium, serum 139 mmol/L 072-701 3745/01/04 potassium, serum 3.9 mmol/L 3.5-5.2 Lab Report: LIPID PANEL, TSH/899, T4, FREE/866 - Chemistry cholesterol, serum 220 mg/dL 181-297 5988/04/14 HDL cholesterol, serum 30 mg/dL > OR=40 [...] 1.80 ng/mL 0.00-4.00 Lab Report: VITAMIN D, 25-HYDROXY/84221 - Chemistry vitamin D 25-hydroxy, serum 25 ng/mL 30-100 Office Visit: Confusion, dizziness after fall - Basic LDL target level 130 mg/dL Office Visit: Confusion, dizziness after fall - Chemistry HDL cholesterol, serum, target level 40 mg/dL triglyceride, target level 150 mg/dL cholesterol, target level 200 mg/dL Encounters Code Encounter Date Provider Facility CPT-18868 Level 4 Est. Patient 13:07:39 SOILS ENGINEER Robbie Busby MD [facility] CPT-06699 Level 4 Est. Patient 15:23:44 SOILS ENGINEER Desmond Diaz [facility] CPT-36052 Level 3 Est. Patient 15:40:49 CDT Robbie Busby MD [facility] CPT-03708 Level 4 Est. Patient 15:18:19 CDT Robbie Busby MD [facility] CPT-13211 Level 3 Est. Patient 09:00:37 CDT Rober Rodríguez [facility] CPT-93772 Level 3 Est. Patient 16:07:10 CDT Robbie Busby MD [facility] CPT-72403 Level 4 Est. Patient 11:56:16 CDT Erin Garsia [facility] CPT-65957 Level 3 Est. Patient 17:48:02 CDT Robbie Busby MD [facility] CPT-28237 Level 4 Est. Patient 12:00:49 SOILS ENGINEER Rober Rodríguez [facility] CPT-71599 Level 3 Est. Patient 09:16:37 CDT Robbie Busby MD [facility] CPT-64503 Level 3 Est. Patient 19:38:43 CDT Robbie Busby MD [facility] CPT-09057 Level 3 Est. Patient 11:53:38 CDT Robbie Busby MD [facility] CPT-05186 Level 4 Est. Patient 12:52:22 CDT Roebr Rodríguez [facility] CPT-76250 Level 4 Est. Patient 22:55:17 CDT Robbie Busby MD [facility] CPT-39925 Level 3 Est. Patient 12:38:24 CDT Desmond Diaz [facility] CPT-10429 Level 4 Est. Patient 11:25:03 SOILS ENGINEER Robbie Busby MD [facility] CPT-35553 Level 4 Est. Patient 14:50:10 CDT Robbie Busby MD [facility] CPT-95542 Level 4 Est. Patient 23:30:43 CDT Robbie Busby MD [facility] CPT-94176 Level 4 Est. Patient 10:30:43 CDT Robbie Busby MD [facility] CPT-16629 Level 3 Est. Patient 17:08:12 CDT Alex Shaw [facility] CPT-38006 Level 4 Est. Patient 17:51:38 CDT Robbie Busby MD [facility] CPT-06379 Level 4 Est. Patient 14:00:21 CDT Robbie Busby MD [facility] CPT-48855 Level 4 Est. Patient 12:46:48 CDT Robbie Busby MD [facility] CPT-30153 Level 4 Est. Patient 13:34:33 CDT Robbie Busby MD [facility] CPT-64960 Level 4 Est. Patient 16:58:28 CDT Robbie Busby MD [facility] CPT-86405 Level 3 Est. Patient 19:36:53 CDT Alex ALVAREZ [facility] CPT-05995 Level 3 Est. Patient 12:58:15 CDT Robbie Busby MD [facility] Procedures Code Procedure Name Date Entry Date Standard Description CPT-J1071 Depo Testosterone 200mg 15:33:58 SOILS ENGINEER CPT-30027 Abx/Therapy Injection 15:33:58 SOILS ENGINEER CPT-J1071 Depo Testosterone 200mg 09:38:36 SOILS ENGINEER CPT-30328 Abx/Therapy Injection 09:38:36 SOILS ENGINEER CPT-J1071 Depo Testosterone 200mg 10:22:56 SOILS ENGINEER CPT-77915 Abx/Therapy Injection 10:22:56 SOILS ENGINEER CPT-J1071 Depo Testosterone 200mg 15:40:23 CDT CPT-70542 Abx/Therapy Injection 15:40:23 CDT CPT-J1071 Depo Testosterone 200mg 14:20:43 CDT CPT-68081 Abx/Therapy Injection 14:20:43 CDT CPT-J1071 Depo Testosterone 200mg 14:17:22 CDT CPT-34778 Abx/Therapy Injection 14:17:22 CDT CPT-J1071 Depo Testosterone 200mg 09:03:53 CDT CPT-69409 Abx/Therapy Injection 09:03:53 CDT CPT-G0439 [facility] Annual Wellness Exam 16:47:44 CDT CPT-J1071 Depo Testosterone 200mg 09:06:28 CDT CPT-27915 Abx/Therapy Injection 09:06:28 CDT CPT-J1071 Depo Testosterone 200mg 08:30:01 CDT CPT-52938 Abx/Therapy Injection 08:30:01 CDT CPT-J1071 Depo Testosterone 200mg 08:24:00 CDT CPT-33088 Abx/Therapy Injection 08:24:00 CDT CPT-19279 Venipuncture Draw Fee 14:39:06 CDT CPT-58565 Ribs unilateral 2V - XRAY USE ONLY 12:10:11 CDT CPT-33932 First Vx - Ix admin for Medicare patients 16:32:53 CDT CPT-84814 Boostrix Intramuscular Suspension 5-2.5-18.5 16:32:53 CDT CPT-04733 TB Skin Test 11:42:28 CDT CPT-03702 Tdap 7yrs or > 11:42:28 CDT CPT-J0696 Rocephin 1000 mg (Ceftriaxone) 17:43:43 SOILS ENGINEER CPT-J1040 Depo Medrol 80 mg (Methyl Prednisolone Acetate) 17:43: 43 SOILS ENGINEER CPT-J1100 Decadron 8mg (Dexamethasone) 17:43:42 SOILS ENGINEER CPT-35062 Abx/Therapy Injection 17:43:42 SOILS ENGINEER CPT-61748 Abx/Therapy Injection 17:43:42 SOILS ENGINEER CPT-J1040 Depo Medrol 80 mg (Methyl Prednisolone Acetate) 09:43: 34 SOILS ENGINEER CPT-J1100 Decadron 8mg (Dexamethasone) 09:43:34 SOILS ENGINEER CPT-J0696 Rocephin 1gm Inj Solr 09:43:34 SOILS ENGINEER CPT-92936 Wound Culture - LAB USE ONLY 14:00:21 CDT CPT-I/D I/D Abscess 09:16:37 CDT CPT-77553 Venipuncture Draw Fee 15:20:23 CDT CPT-20887 Microalbumin - LAB USE ONLY 16:02:19 CDT CPT-12574 CBC - LAB USE ONLY 16:02:19 CDT CPT-53846 Venipuncture Draw Fee 16:02:19 CDT CPT-G0438 Initial Annual Wellness Exam 08:10:28 CDT CPT-15639 Venipuncture Draw Fee 13:07:17 CDT CPT-G0008 Administration of Influenza Virus Vaccine 16:09:59 CDT CPT-89081 Fluzone Quadrivalent Intramuscular Suspension 0.5 ML 16: 09:59 CDT CPT-79483 Spec Collection and Handling Fee 15:05:50 CDT
--- OUTSIDE RECORDS SUMMARY | 2018-04-18 11:46 | XMS REPORT | Clinical Summary ---
Author Author Admin, [facility] Organization [facility] Address Unknown Phone Unavailable Allergies, Adverse Reactions, [...] 2 weeks for low testosterone TESTOSTERONE CYPIONATE [id number] Active Zulema Blank LPN Active CYCLOBENZAPRINE HCL 10 MG ORAL TABS 1 po TID PRN muscle spasm/pain for 10 days CYCLOBENZAPRINE HCL 10269361415 Active JONATHAN Moncada Active GUAIFENESIN 600 MG [id number] 1 tab po q am GUAIFENESIN 40529565152 Active Rober Rodríguez [employer] HEL[employer] Active FLUTICASONE PROPIONATE 50 MCG/ACT SUSP 2 sprays per nostril bid for 1 week, then 1 spray bid FLUTICASONE PROPIONATE 56423601883 Active Jillina Anne ARGUELLO Active HYDRALAZINE HCL 25 MG ORAL TABS Take 1 tab BID. HYDRALAZINE HCL 41515274326 Active Jishantel Rodríguez APRN Active VITAMIN D3 74081 UNIT ORAL TABS 2 po weekly CHOLECALCIFEROL 22560539463 Active Robbie Busby MD Active OXYCODONE HCL ER 10 MG ORAL T12A 1 tab po 3 times qd. OXYCODONE HCL 99758867716 Active Robbie Busby MD Active NITROSTAT 0.4 MG SUBL PRN NITROGLYCERIN 75685569197 No Longer Active Robbie Busby MD Active LORATADINE 10 MG TABS 1 tablet by mouth daily for congestion and allergies. LORATADINE 31536807599 No Longer Active Robbie Busby MD Active FLONASE 50 MCG/ACT SUSP 1 spray each nostril twice daily for allergies and runny nose FLUTICASONE PROPIONATE 81744669663 No Longer Active Robbie Busby MD Active FIORICET 50-300-40 MG ORAL CAPS take 1 tab po qday prn migraines. [id number] 55800703134 No Longer Active Robbie Busby MD Active VITAMIN D3 55498 UNIT CAPS 2 CAPS PO WEEKLY CHOLECALCIFEROL 47763412349 No Longer Active Robbie Busby MD Active CYCLOBENZAPRINE HCL 10 MG TABS 1 tablet by mouth three times daily as needed for muscle spasm/pain for 10 days CYCLOBENZAPRINE HCL 52398196720 No Longer Active Robbie Busby MD Active PREDNISONE 20 MG TAB take 3 tabs daily for 3 days, 2 tabs daily for 3 days, 1 tab daily for 3 days, 1/2 tab daily for 4 days PREDNISONE 62713518076 No Longer Active Erin Garsia APRN Active CLONIDINE HCL 0.2 MG ORAL TABS 1 TAB BY MOUTH EVERY 8 HOURS 12/29 CLONIDINE HCL 68004501304 No Longer Active Erin Garsia APRN Active MECLIZINE HCL 25 MG TAB one 4 times a day as needed for dizziness MECLIZINE HCL 98176640679 No Longer Active Erin Garsia APRN Active SPIRONOLACTONE 25 MG TAB 4 tablets by mouth daily SPIRONOLACTONE 35768772077 No Longer Active Erin Garsai APRN Active LEVAQUIN 500 MG TAB 1 tablet by mouth daily for 7 days LEVOFLOXACIN 39371563907 No Longer Active Erin Garsia APRN Active BACTRIM DS 800-160 MG TAB 1 tab by mouth twice daily TRIMETHOPRIM-SULFAMETHOXAZOLE 01317144586 No Longer Active Robbie Busby MD Active HYDRALAZINE HCL 50 MG ORAL TABS TWO BY MOUTH THREE TIMES DAILY HYDRALAZINE HCL 47839309351 No Longer Active Jillina Frakierstenl [employer] HEL[employer] Active HYDROCODONE-ACETAMINOPHEN 5-325 MG TABS 1 tab by mouth BID prn back pain 2013 HYDROCODONE-ACETAMINOPHEN 57702696186 No Longer Active Jillina Frazell [employer] HEL[employer] Active HYDROCHLOROTHIAZIDE TABS Take one by mouth daily HYDROCHLOROTHIAZIDE TABS 46686887619 No Longer Active Jillina Frazell [employer] HEL[employer] Active LAMISIL 125 MG ORAL PACK 1 TAB PO DAILY TERBINAFINE HCL 66393708370 No Longer Active Jillina Frazell [employer] HEL[employer] Active TRILEPTAL 150 MG ORAL TABS 1 TAB PO Q HS OXCARBAZEPINE 72406897533 No Longer Active Jillina Frazell [employer] HEL[employer] Active BETADINE 10 % EXT SOLN 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 POVIDONE-IODINE 09487396699 No Longer Active Jillina Frazell [employer] HEL[employer] Active NYSTATIN 224865 UNIT/ML M/T SUSP 5mL po QID x 10 days NYSTATIN 04408193719 No Longer Active Erin Garsia APRN Active PREDNISONE 20 MG TAB 1 tablet twice daily for 2 days, then 1 tablet once daily for 2 days PREDNISONE 90890224320 No Longer Active Robbie Busby MD Active CEFDINIR 300 MG ORAL CAPS Take 1 cap po bid x 10 days CEFDINIR 12293635462 No Longer Active Robbie Busby MD Active AMLODIPINE BESYLATE 10 MG TABS 1 tablet by mouth daily AMLODIPINE BESYLATE 88823258846 Active Robbie Busby MD Active CARVEDILOL 25 MG TABS 1 & 1/2 TAB po BID CARVEDILOL 48002772262 Active Robbie Busby MD Active NEXIUM 40 MG CPDR 1 cap by mouth daily ESOMEPRAZOLE MAGNESIUM 38463649478 Active Robbie Busby MD Active PROTONIX 40 MG SOLR 1 po qday for acid reflux PANTOPRAZOLE SODIUM 55550855966 No Longer Active Gali Raida Active KEFLEX 500 MG CAP 1 po TID x 10 days CEPHALEXIN 90514759512 No Longer Active Robbie Busby MD Active TOPIRAMATE 50 MG ORAL TABS take 1 tab po BID for migraines. TOPIRAMATE 23265176771 Active Robbie Busby MD Active TEMAZEPAM 15 MG ORAL CAPS 1 TAB PO Q HS TEMAZEPAM 03204495381 Active Robbie Busby MD Active ALPRAZOLAM 2 MG ORAL TABS 1 TAB PO BID ALPRAZOLAM 64056213245 Active Robbie Busby MD Active FENOFIBRATE 145 MG TABS Take one by mouth daily FENOFIBRATE 90430600819 No Longer Active Robbie Busby MD Active SPIRONOLACTONE 50 MG TABS 1 tablet by mouth twice a day SPIRONOLACTONE 33100718974 No Longer Active Robbie Busby MD Active HYDRALAZINE HCL 25 MG TABS 1 tablet by mouth tid for hypertension HYDRALAZINE HCL 94249305114 No Longer Active Robbie Busby MD Active VIIBRYD 40 MG TABS take 1 tab po qday for depression. VILAZODONE HCL 89049096180 No Longer Active Robbie Busby MD Active TERBINAFINE HCL 250 MG TABS 1 tab po qday for foot infection 2014 TERBINAFINE HCL 85372490270 No Longer Active Robbie Busby MD Active GABAPENTIN 300 MG CAPS 1 po q hs for nerve pain GABAPENTIN 19617399100 Active Robbie Busby MD Active CHERATUSSIN AC 100-10 MG/5ML ORAL SOLN 7.5 mL PO q 4-6 hrs PRN cough GUAIFENESIN-CODEINE 86680838353 No Longer Active Robbie Busby MD Active AZITHROMYCIN 250 MG ORAL TABS 2 tablets PO today---then, 1 tablet PO daily x 4 more days (and 1 optional refill) AZITHROMYCIN 20469198775 No Longer Active Robbie Busby MD Active NORVASC 10 MG TAB 1 tablet by mouth daily AMLODIPINE BESYLATE 59122877204 No Longer Active Alex ALVAREZ Active IMDUR 60 MG TAB CR take 1 tab po qday for blood pressure ISOSORBIDE MONONITRATE Active Robbie Busby MD Active ISOSORBIDE DINITRATE 30 MG TABS Take one by mouth daily ISOSORBIDE DINITRATE 65278431860 No Longer Active Robbie Busby MD Active VIIBRYD 40 MG TABS 1 TA B PO DAILY VILAZODONE HCL 22629788225 Active Robbie Busby MD Active ZITHROMAX 250 MG TAB 2 po today, then 1 po q days 2-5 AZITHROMYCIN 75021377199 No Longer Active Robbie Busby MD Active [id number] 0.3 MG/24HR PTWK apply 2 patches q week for HTN CLONIDINE HCL 91482253970 Active Robbie Busby MD Active DOXAZOSIN MESYLATE 4 MG TABS Take one by mouth daily DOXAZOSIN MESYLATE 48982523337 Active Robbie Busby MD Active TOPROL XL 200 MG [id number]-DPJ Take one by mouth daily METOPROLOL SUCCINATE 25584303430 Active Robbie Busby MD Active VENLAFAXINE HCL ER 150 MG GH17Y-BIF Take one by mouth daily VENLAFAXINE HCL 49592344957 Active Robbie Busby MD Active LIPITOR 40 MG TABS Take one by mouth daily ATORVASTATIN CALCIUM 50607234217 Active Robbie Busby MD Active ISOSORBIDE DINITRATE 30 MG TABS Take one by mouth daily ISOSORBIDE DINITRATE 30 MG TABS 158121 ISOSORBIDE DINITRATE Inactive NORVASC 10 MG TAB 1 tablet by mouth daily NORVASC 10 MG TAB 754834 AMLODIPINE BESYLATE Inactive AZITHROMYCIN 250 MG ORAL TABS 2 tablets PO today---then, 1 tablet PO daily x 4 more days (and 1 optional refill) AZITHROMYCIN 250 MG ORAL TABS 1620570 AZITHROMYCIN Inactive CHERATUSSIN AC 100-10 MG/5ML ORAL SOLN 7.5 mL PO q 4-6 hrs PRN cough CHERATUSSIN AC 100-10 MG/5ML ORAL SOLN 536195 GUAIFENESIN- CODEINE Inactive VIIBRYD 40 MG TABS take 1 tab po qday for depression. VIIBRYD 40 MG TABS VILAZODONE HCL Inactive HYDRALAZINE HCL 25 MG TABS 1 tablet by mouth tid for hypertension HYDRALAZINE HCL 25 MG TABS 171133 HYDRALAZINE HCL Inactive SPIRONOLACTONE 50 MG TABS 1 tablet by mouth twice a day SPIRONOLACTONE 50 MG TABS 485076 SPIRONOLACTONE Inactive FENOFIBRATE 145 MG TABS Take one by mouth daily FENOFIBRATE 145 MG TABS 754322 FENOFIBRATE Inactive PROTONIX 40 MG SOLR 1 po qday for acid reflux PROTONIX 40 MG SOLR 662392 PANTOPRAZOLE SODIUM Inactive CEFDINIR 300 MG ORAL CAPS Take 1 cap po bid x 10 days CEFDINIR 300 MG ORAL CAPS 517919 CEFDINIR Inactive PREDNISONE 20 MG TAB 1 tablet twice daily for 2 days, then 1 tablet once daily for 2 days PREDNISONE 20 MG TAB 755072 PREDNISONE Inactive NYSTATIN 367993 UNIT/ML M/T SUSP 5mL po QID x 10 days NYSTATIN 208793 UNIT/ML M/T SUSP 873088 NYSTATIN Inactive BETADINE 10 % EXT SOLN 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 BETADINE 10 % EXT SOLN 2910703 POVIDONE-IODINE Inactive TRILEPTAL 150 MG ORAL TABS 1 TAB PO Q HS TRILEPTAL 150 MG ORAL TABS 488559 OXCARBAZEPINE Inactive LAMISIL 125 MG ORAL PACK 1 TAB PO DAILY LAMISIL 125 MG ORAL PACK TERBINAFINE HCL Inactive HYDROCHLOROTHIAZIDE TABS Take one by mouth daily HYDROCHLOROTHIAZIDE TABS HYDROCHLOROTHIAZIDE TABS Inactive HYDROCODONE-ACETAMINOPHEN 5-325 MG TABS 1 tab by mouth BID prn back pain 2013 HYDROCODONE-ACETAMINOPHEN 5-325 MG TABS 482311 HYDROCODONE -ACETAMINOPHEN Inactive HYDRALAZINE HCL 50 MG ORAL TABS TWO BY MOUTH THREE TIMES DAILY HYDRALAZINE HCL 50 MG ORAL TABS 182405 HYDRALAZINE HCL Inactive LEVAQUIN 500 MG TAB 1 tablet by mouth daily for 7 days LEVAQUIN 500 MG TAB 604954 LEVOFLOXACIN Inactive SPIRONOLACTONE 25 MG TAB 4 tablets by mouth daily SPIRONOLACTONE 25 MG TAB 258065 SPIRONOLACTONE Inactive MECLIZINE HCL 25 MG TAB one 4 times a day as needed for dizziness MECLIZINE HCL 25 MG TAB 012944 MECLIZINE HCL Inactive CLONIDINE HCL 0.2 MG ORAL TABS 1 TAB BY MOUTH EVERY 8 HOURS 12/29 CLONIDINE HCL 0.2 MG ORAL TABS 203964 CLONIDINE HCL Inactive CYCLOBENZAPRINE HCL 10 MG TABS 1 tablet by mouth three times daily as needed for muscle spasm/pain for 10 days CYCLOBENZAPRINE HCL 10 MG TABS 040935 CYCLOBENZAPRINE HCL Inactive VITAMIN D3 80956 UNIT CAPS 2 CAPS PO WEEKLY VITAMIN D3 03391 UNIT CAPS CHOLECALCIFEROL Inactive FIORICET 50-300-40 MG ORAL CAPS take 1 tab po qday prn migraines. FIORICET 50-300-40 MG ORAL CAPS 513951 [id number] Inactive FLONASE 50 MCG/ACT SUSP 1 spray each nostril twice daily for allergies and runny nose FLONASE 50 MCG/ACT SUSP 7164089 FLUTICASONE PROPIONATE Inactive LORATADINE 10 MG TABS 1 tablet by mouth daily for congestion and allergies. LORATADINE 10 MG TABS 947540 LORATADINE Inactive NITROSTAT 0.4 MG SUBL PRN NITROSTAT 0.4 MG SUBL 416697 NITROGLYCERIN Inactive ZITHROMAX 250 MG TAB 2 po today, then 1 po q days 2-5 ZITHROMAX 250 MG TAB 2295253 AZITHROMYCIN Inactive TERBINAFINE HCL 250 MG TABS 1 tab po qday for foot infection 2014 TERBINAFINE HCL 250 MG TABS 351450 TERBINAFINE HCL Inactive KEFLEX 500 MG CAP 1 po TID x 10 days KEFLEX 500 MG CAP 568224 CEPHALEXIN Inactive BACTRIM DS 800-160 MG TAB 1 tab by mouth twice daily BACTRIM DS 800-160 MG TAB 808028 TRIMETHOPRIM-SULFAMETHOXAZOLE Inactive PREDNISONE 20 MG TAB take 3 tabs daily for 3 days, 2 tabs daily for 3 days, 1 tab daily for 3 days, 1/2 tab daily for 4 days PREDNISONE 20 MG TAB 753967 PREDNISONE Inactive Advance Directives Directive Description Start [...] AUTO - Chemistry sodium, serum 142 mmol/L 924-805 9857/07/17 carbon dioxide, venous blood 28.2 mmol/L 21.0-32.0 [...] % 11.0-15.0 platelet count 185 THOUSAND/UL 10*3/mm3 782-274 3859/04/14 mean platelet volume 10.9 fL 7.5-12.5 Lab Report: LIPID PANEL, TSH/899, T4, FREE/866 - Chemistry cholesterol, serum 220 mg/dL 935-533 7062/04/14 HDL cholesterol, serum 30 mg/dL > OR=40 triglyceride, serum, fasting 466 mg/dL <150 LDL cholesterol, serum SEE NOTE mg/dL (calc) mg/dL <130 cholesterol/HDL ratio, serum 7.3 (calc) < OR=5.0 Lab Report: MICROALB/CREAT W/RATIO - Chemistry albumin/creatinine ratio, urine < 30 mg/g mg/g{creat} 0-29 Lab Report: MICROALB/CREAT W/RATIO - Lab microalbumin, urine 80 0-19 Lab Report: VITAMIN D, 25-HYDROXY/96221 - Chemistry vitamin D 25-hydroxy, serum 25 ng/mL 30-100 Office Visit: Confusion, dizziness after fall - Basic LDL target level 130 mg/dL Office Visit: Confusion, dizziness after fall - Chemistry HDL cholesterol, serum, target level 40 mg/dL triglyceride, target level 150 mg/dL cholesterol, target level 200 mg/dL Encounters Code Encounter Date Provider Facility CPT-43182 Level 3 Est. Patient 09:00:37 CDT Rober Rodríguez [facility] CPT-43488 Level 3 Est. Patient 16:07:10 CDT Robbie Busby MD [facility] CPT-78713 Level 4 Est. Patient 11:56:16 CDT Erin Garsia [facility] CPT-02921 Level 3 Est. Patient 17:48:02 CDT Robbie Busby MD [facility] CPT-23189 Level 4 Est. Patient 12:00:49 COMPTOMETER OPERATOR Rober Rodríguez [facility] CPT-71231 Level 3 Est. Patient 09:16:37 CDT Robbie Busby MD [facility]-49161 Level 3 Est. Patient 19:38:43 CDT Robbie Busby MD [facility] CPT-96771 Level 3 Est. Patient 11:53:38 CDT Robbie Busby MD [facility] CPT-19369 Level 4 Est. Patient 12:52:22 CDT Rober Rodríguez [facility] CPT-53258 Level 4 Est. Patient 22:55:17 CDT Robbie Busby MD [facility] CPT-62671 Level 3 Est. Patient 12:38:24 CDT Desmond Diaz DO [facility] CPT-97994 Level 4 Est. Patient 11:25:03 COMPTOMETER OPERATOR Robbie Busby MD [facility] CPT-20908 Level 4 Est. Patient 14:50:10 CDT Robbie Busby MD [facility] CPT-15117 Level 4 Est. Patient 23:30:43 CDT Robbie Busby MD [facility] CPT-54551 Level 4 Est. Patient 10:30:43 CDT Robbie Busby MD [facility] CPT-50176 Level 3 Est. Patient 17:08:12 CDT Alex ALVAREZ [facility] CPT-44937 Level 4 Est. Patient 17:51:38 CDT Robbie Busby MD [facility] CPT-91295 Level 4 Est. Patient 14:00:21 CDT Robbie Busby MD [facility] CPT-28316 Level 4 Est. Patient 12:46:48 CDT Robbie Busby MD [facility] CPT-93525 Level 4 Est. Patient 13:34:33 CDT Robbie Busby MD [facility] CPT-61871 Level 4 Est. Patient 16:58:28 CDT Robbie Busby MD [facility] CPT-80005 Level 3 Est. Patient 19:36:53 CDT Alex Shaw [facility] CPT-44107 Level 3 Est. Patient 12:58:15 CDT Robbie Busby MD [facility] Procedures Code Procedure Name Date Entry Date Standard Description CPT-J1071 Depo Testosterone 200mg 08:24:00 CDT CPT-27859 Abx/Therapy Injection 08:24:00 CDT CPT-03618 Venipuncture Draw Fee 14:39:06 CDT CPT-77073 Ribs unilateral 2V - XRAY USE ONLY 12:10:11 CDT CPT-04981 First Vx - Ix admin for Medicare patients 16:32:53 CDT CPT-60187 Boostrix Intramuscular Suspension 5-2.5-18.5 16:32:53 CDT CPT-80361 TB Skin Test 11:42:28 CDT CPT-81276 Tdap 7yrs or > 11:42:28 CDT CPT-J0696 Rocephin 1000 mg (Ceftriaxone) 17:43:43 COMPTOMETER OPERATOR CPT-J1040 Depo Medrol 80 mg (Methyl Prednisolone Acetate) 17:43: 43 COMPTOMETER OPERATOR CPT-J1100 Decadron 8mg (Dexamethasone) 17:43:42 COMPTOMETER OPERATOR CPT-04676 Abx/Therapy Injection 17:43:42 COMPTOMETER OPERATOR CPT-64186 Abx/Therapy Injection 17:43:42 COMPTOMETER OPERATOR CPT-J1040 Depo Medrol 80 mg (Methyl Prednisolone Acetate) 09:43: 34 COMPTOMETER OPERATOR CPT-J1100 Decadron 8mg (Dexamethasone) 09:43:34 COMPTOMETER OPERATOR CPT-J0696 Rocephin 1gm Inj Solr 09:43:34 COMPTOMETER OPERATOR CPT-59256 Wound Culture - LAB USE ONLY 14:00:21 CDT CPT-I/D I/D Abscess 09:16:37 CDT CPT-10627 Venipuncture Draw Fee 15:20:23 CDT CPT-95221 Microalbumin - LAB USE ONLY 16:02:19 CDT CPT-44867 CBC - LAB USE ONLY 16:02:19 CDT CPT-64675 Venipuncture Draw Fee 16:02:19 CDT CPT-G0438 Initial Annual Wellness Exam 08:10:28 CDT CPT-14212 Venipuncture Draw Fee 13:07:17 CDT CPT-G0008 Administration of Influenza Virus Vaccine 16:09:59 CDT CPT-50512 Fluzone Quadrivalent Intramuscular Suspension 0.5 ML 16: 09:59 CDT CPT-48120 Spec Collection and Handling Fee 15:05:50 CDT
--- OUTSIDE RECORDS SUMMARY | 2018-04-18 11:47 | XMS REPORT | Clinical Summary ---
Author Author Admin, Nicolas Organization [facility] Address Unknown Phone Unavailable Allergies, Adverse Reactions, [...] Robbie Busby MD Myocardial Infarction: Active Robbie Busyb MD Acute myocardial infarction, unspecified site, initial [...] unspecified sites URI 465.9 Active Rober Rodríguez PSYCHOLOGIST ENGINEERING Acute upper respiratory infections of unspecified site [...] NDC Status Provider Patient Instruction VITAMIN D3 36741 UNIT ORAL TABS 2 po weekly CHOLECALCIFEROL 96911404643 Active JONATHAN Moncada Active OXYCODONE HCL ER 10 MG ORAL T12A 1 tab po 3 times qd. OXYCODONE HCL 96344499129 Active Robbie Busby MD Active NITROSTAT 0.4 MG SUBL PRN NITROGLYCERIN 82451864743 No Longer Active Robbie Busby MD Active LORATADINE 10 MG TABS 1 tablet by mouth daily for congestion and allergies. LORATADINE 87673153225 No Longer Active Robbie Busby MD Active FLONASE 50 MCG/ACT SUSP 1 spray each nostril twice daily for allergies and runny nose FLUTICASONE PROPIONATE 61859409011 No Longer Active Robbie Busby MD Active FIORICET 50-300-40 MG ORAL CAPS take 1 tab po qday prn migraines. [id number] 04152469376 No Longer Active Robbie Busby MD Active VITAMIN D3 54683 UNIT CAPS 2 CAPS PO WEEKLY CHOLECALCIFEROL 97341794375 No Longer Active Robbie Busby MD Active CYCLOBENZAPRINE HCL 10 MG TABS 1 tablet by mouth three times daily as needed for muscle spasm/pain for 10 days CYCLOBENZAPRINE HCL 67576084571 No Longer Active Robbie Busby MD Active PREDNISONE 20 MG TAB take 3 tabs daily for 3 days, 2 tabs daily for 3 days, 1 tab daily for 3 days, 1/2 tab daily for 4 days PREDNISONE 83480369718 No Longer Active Erin Garsia APRN Active CLONIDINE HCL 0.2 MG ORAL TABS 1 TAB BY MOUTH EVERY 8 HOURS 12/29 CLONIDINE HCL 56894864628 No Longer Active Erin Garsia APRN Active MECLIZINE HCL 25 MG TAB one 4 times a day as needed for dizziness MECLIZINE HCL 48616001331 No Longer Active Erin Garsia APRN Active SPIRONOLACTONE 25 MG TAB 4 tablets by mouth daily SPIRONOLACTONE 05799859550 No Longer Active Erin Garsia APRN Active LEVAQUIN 500 MG TAB 1 tablet by mouth daily for 7 days LEVOFLOXACIN 63207217364 No Longer Active Erin Garsia APRN Active BACTRIM DS 800-160 MG TAB 1 tab by mouth twice daily TRIMETHOPRIM-SULFAMETHOXAZOLE 94786364593 No Longer Active Robbie Busby MD Active HYDRALAZINE HCL 50 MG ORAL TABS TWO BY MOUTH THREE TIMES DAILY HYDRALAZINE HCL 36799924766 No Longer Active Rober Rodríguez APRN Active HYDROCODONE-ACETAMINOPHEN 5-325 MG TABS 1 tab by mouth BID prn back pain 2013 HYDROCODONE-ACETAMINOPHEN 51000702147 No Longer Active Jillina Anne ARGUELLO Active HYDROCHLOROTHIAZIDE TABS Take one by mouth daily HYDROCHLOROTHIAZIDE TABS 57592698666 No Longer Active Jillina Frazell PSYCHOLOGIST ENGINEERING Active LAMISIL 125 MG ORAL PACK 1 TAB PO DAILY TERBINAFINE HCL 91383809842 No Longer Active Jillina Frazell PSYCHOLOGIST ENGINEERING Active TRILEPTAL 150 MG ORAL TABS 1 TAB PO Q HS OXCARBAZEPINE 67370744217 No Longer Active Jillina Frazell PSYCHOLOGIST ENGINEERING Active BETADINE 10 % EXT SOLN 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 POVIDONE-IODINE 68844768546 No Longer Active Jillina Frazell PSYCHOLOGIST ENGINEERING Active NYSTATIN 352408 UNIT/ML M/T SUSP 5mL po QID x 10 days NYSTATIN 13697429014 No Longer Active Eirn Garsia APRN Active PREDNISONE 20 MG TAB 1 tablet twice daily for 2 days, then 1 tablet once daily for 2 days PREDNISONE 18667966364 No Longer Active Robbie Busby MD Active CEFDINIR 300 MG ORAL CAPS Take 1 cap po bid x 10 days CEFDINIR 17065926021 No Longer Active Robbie Busby MD Active AMLODIPINE BESYLATE 10 MG TABS 1 tablet by mouth daily AMLODIPINE BESYLATE 29457290374 Active Robbie Busby MD Active CARVEDILOL 25 MG TABS 1 & 1/2 TAB po BID CARVEDILOL 90906721230 Active Robbie Busby MD Active NEXIUM 40 MG CPDR 1 cap by mouth daily ESOMEPRAZOLE MAGNESIUM 98644192658 Active Robbie Busby MD Active PROTONIX 40 MG SOLR 1 po qday for acid reflux PANTOPRAZOLE SODIUM 44763307835 No Longer Active Gali Raida Active KEFLEX 500 MG CAP 1 po TID x 10 days CEPHALEXIN 24090202561 No Longer Active Robbie Busby MD Active TOPIRAMATE 50 MG ORAL TABS take 1 tab po BID for migraines. TOPIRAMATE 37559306645 Active Robbie Busby MD Active TEMAZEPAM 15 MG ORAL CAPS 1 TAB PO Q HS TEMAZEPAM 66194188306 Active Robbie Busby MD Active ALPRAZOLAM 2 MG ORAL TABS 1 TAB PO BID ALPRAZOLAM 03358332016 Active Robbie Busby MD Active FENOFIBRATE 145 MG TABS Take one by mouth daily FENOFIBRATE 47258673558 No Longer Active Robbie Busby MD Active SPIRONOLACTONE 50 MG TABS 1 tablet by mouth twice a day SPIRONOLACTONE 52729491749 No Longer Active Robbie Busby MD Active HYDRALAZINE HCL 25 MG TABS 1 tablet by mouth tid for hypertension HYDRALAZINE HCL 18149874708 No Longer Active Robbie Bsuby MD Active VIIBRYD 40 MG TABS take 1 tab po qday for depression. VILAZODONE HCL 43982550985 No Longer Active Robbie Busby MD Active TERBINAFINE HCL 250 MG TABS 1 tab po qday for foot infection 2014 TERBINAFINE HCL 08965039717 No Longer Active Robbie Busby MD Active GABAPENTIN 300 MG CAPS 1 po q hs for nerve pain GABAPENTIN 34377549703 Active Robbie Busby MD Active CHERATUSSIN AC 100-10 MG/5ML ORAL SOLN 7.5 mL PO q 4-6 hrs PRN cough GUAIFENESIN-CODEINE 90509064651 No Longer Active Robbie Busby MD Active AZITHROMYCIN 250 MG ORAL TABS 2 tablets PO today---then, 1 tablet PO daily x 4 more days (and 1 optional refill) AZITHROMYCIN 35899151305 No Longer Active Robbie Busby MD Active NORVASC 10 MG TAB 1 tablet by mouth daily AMLODIPINE BESYLATE 77727738167 No Longer Active Alex ALVAREZ Active IMDUR 60 MG TAB CR take 1 tab po qday for blood pressure ISOSORBIDE MONONITRATE Active Robbie Busby MD Active ISOSORBIDE DINITRATE 30 MG TABS Take one by mouth daily ISOSORBIDE DINITRATE 34063444370 No Longer Active Robbie Busby MD Active VIIBRYD 40 MG TABS 1 TA B PO DAILY VILAZODONE HCL 79923281825 Active Robbie Busby MD Active ZITHROMAX 250 MG TAB 2 po today, then 1 po q days 2-5 AZITHROMYCIN 96487213351 No Longer Active Robbie Busby MD Active [id number] 0.3 MG/24HR PTWK apply 2 patches q week for HTN CLONIDINE HCL 24025963698 Active Robbie Busby MD Active DOXAZOSIN MESYLATE 4 MG TABS Take one by mouth daily DOXAZOSIN MESYLATE 34080860734 Active Robbie Busby MD Active TOPROL XL 200 MG [id number] Take one by mouth daily METOPROLOL SUCCINATE 17709225718 Active Robbie Busby MD Active VENLAFAXINE HCL ER 150 MG [id number] Take one by mouth daily VENLAFAXINE HCL 02068363215 Active Robbie Busby MD Active LIPITOR 40 MG TABS Take one by mouth daily ATORVASTATIN CALCIUM 75245199180 Active Robbie Busby MD Active ISOSORBIDE DINITRATE 30 MG TABS Take one by mouth daily ISOSORBIDE DINITRATE 30 MG TABS 827015 ISOSORBIDE DINITRATE Inactive NORVASC 10 MG TAB 1 tablet by mouth daily NORVASC 10 MG TAB 692048 AMLODIPINE BESYLATE Inactive AZITHROMYCIN 250 MG ORAL TABS 2 tablets PO today---then, 1 tablet PO daily x 4 more days (and 1 optional refill) AZITHROMYCIN 250 MG ORAL TABS 6156400 AZITHROMYCIN Inactive CHERATUSSIN AC 100-10 MG/5ML ORAL SOLN 7.5 mL PO q 4-6 hrs PRN cough CHERATUSSIN AC 100-10 MG/5ML ORAL SOLN 645197 GUAIFENESIN- CODEINE Inactive VIIBRYD 40 MG TABS take 1 tab po qday for depression. VIIBRYD 40 MG TABS VILAZODONE HCL Inactive HYDRALAZINE HCL 25 MG TABS 1 tablet by mouth tid for hypertension HYDRALAZINE HCL 25 MG TABS 150891 HYDRALAZINE HCL Inactive SPIRONOLACTONE 50 MG TABS 1 tablet by mouth twice a day SPIRONOLACTONE 50 MG TABS 664603 SPIRONOLACTONE Inactive FENOFIBRATE 145 MG TABS Take one by mouth daily FENOFIBRATE 145 MG TABS 330574 FENOFIBRATE Inactive PROTONIX 40 MG SOLR 1 po qday for acid reflux PROTONIX 40 MG SOLR 540601 PANTOPRAZOLE SODIUM Inactive CEFDINIR 300 MG ORAL CAPS Take 1 cap po bid x 10 days CEFDINIR 300 MG ORAL CAPS 420904 CEFDINIR Inactive PREDNISONE 20 MG TAB 1 tablet twice daily for 2 days, then 1 tablet once daily for 2 days PREDNISONE 20 MG TAB 535495 PREDNISONE Inactive NYSTATIN 453190 UNIT/ML M/T SUSP 5mL po QID x 10 days NYSTATIN 202190 UNIT/ML M/T SUSP 304879 NYSTATIN Inactive BETADINE 10 % EXT SOLN 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 BETADINE 10 % EXT SOLN 8386825 POVIDONE-IODINE Inactive TRILEPTAL 150 MG ORAL TABS 1 TAB PO Q HS TRILEPTAL 150 MG ORAL TABS 581292 OXCARBAZEPINE Inactive LAMISIL 125 MG ORAL PACK 1 TAB PO DAILY LAMISIL 125 MG ORAL PACK TERBINAFINE HCL Inactive HYDROCHLOROTHIAZIDE TABS Take one by mouth daily HYDROCHLOROTHIAZIDE TABS HYDROCHLOROTHIAZIDE TABS Inactive HYDROCODONE-ACETAMINOPHEN 5-325 MG TABS 1 tab by mouth BID prn back pain 2013 HYDROCODONE-ACETAMINOPHEN 5-325 MG TABS 332974 HYDROCODONE -ACETAMINOPHEN Inactive HYDRALAZINE HCL 50 MG ORAL TABS TWO BY MOUTH THREE TIMES DAILY HYDRALAZINE HCL 50 MG ORAL TABS 372941 HYDRALAZINE HCL Inactive LEVAQUIN 500 MG TAB 1 tablet by mouth daily for 7 days LEVAQUIN 500 MG TAB 089180 LEVOFLOXACIN Inactive SPIRONOLACTONE 25 MG TAB 4 tablets by mouth daily SPIRONOLACTONE 25 MG TAB 323237 SPIRONOLACTONE Inactive MECLIZINE HCL 25 MG TAB one 4 times a day as needed for dizziness MECLIZINE HCL 25 MG TAB 435988 MECLIZINE HCL Inactive CLONIDINE HCL 0.2 MG ORAL TABS 1 TAB BY MOUTH EVERY 8 HOURS 12/29 CLONIDINE HCL 0.2 MG ORAL TABS 583254 CLONIDINE HCL Inactive CYCLOBENZAPRINE HCL 10 MG TABS 1 tablet by mouth three times daily as needed for muscle spasm/pain for 10 days CYCLOBENZAPRINE HCL 10 MG TABS 608734 CYCLOBENZAPRINE HCL Inactive VITAMIN D3 75633 UNIT CAPS 2 CAPS PO WEEKLY VITAMIN D3 48890 UNIT CAPS CHOLECALCIFEROL Inactive FIORICET 50-300-40 MG ORAL CAPS take 1 tab po qday prn migraines. FIORICET 50-300-40 MG ORAL CAPS 839465 [id number] Inactive FLONASE 50 MCG/ACT SUSP 1 spray each nostril twice daily for allergies and runny nose FLONASE 50 MCG/ACT SUSP 2061586 FLUTICASONE PROPIONATE Inactive LORATADINE 10 MG TABS 1 tablet by mouth daily for congestion and allergies. LORATADINE 10 MG TABS 089389 LORATADINE Inactive NITROSTAT 0.4 MG SUBL PRN NITROSTAT 0.4 MG SUBL 723184 NITROGLYCERIN Inactive ZITHROMAX 250 MG TAB 2 po today, then 1 po q days 2-5 ZITHROMAX 250 MG TAB 9052329 AZITHROMYCIN Inactive TERBINAFINE HCL 250 MG TABS 1 tab po qday for foot infection 2014 TERBINAFINE HCL 250 MG TABS 807654 TERBINAFINE HCL Inactive KEFLEX 500 MG CAP 1 po TID x 10 days KEFLEX 500 MG CAP 866779 CEPHALEXIN Inactive BACTRIM DS 800-160 MG TAB 1 tab by mouth twice daily BACTRIM DS 800-160 MG TAB 072539 TRIMETHOPRIM-SULFAMETHOXAZOLE Inactive PREDNISONE 20 MG TAB take 3 tabs daily for 3 days, 2 tabs daily for 3 days, 1 tab daily for 3 days, 1/2 tab daily for 4 days PREDNISONE 20 MG TAB 009251 PREDNISONE Inactive Advance Directives Directive Description Start [...] % 11.0-15.0 platelet count 185 THOUSAND/UL 10*3/mm3 895-543 6308/04/14 mean platelet volume 10.9 fL 7.5-12.5 Lab Report: LIPID PANEL, TSH/899, T4, FREE/866 - Chemistry cholesterol, serum 220 mg/dL 720-344 1828/04/14 HDL cholesterol, serum 30 mg/dL > OR=40 [...] mg/dL Encounters Code Encounter Date Provider Facility CPT-27540 Level 3 Est. Patient 16:07:10 CDT Robbie Busby MD [facility] CPT-94039 Level 4 Est. Patient 11:56:16 CDT Erin Garsia [facility] CPT-60730 Level 3 Est. Patient 17:48:02 CDT Robbie Busby MD [facility] CPT-38365 Level 4 Est. Patient 12:00:49 OVEN OPERATOR AUTOMATIC Rober Rodríguez [facility] CPT-68348 Level 3 Est. Patient 09:16:37 CDT Robbie Busby MD [facility] CPT-09268 Level 3 Est. Patient 19:38:43 CDT Robbie Busby MD [facility] CPT-48054 Level 3 Est. Patient 11:53:38 CDT Robbie Busby MD [facility] CPT-67790 Level 4 Est. Patient 12:52:22 CDT Rober Rodríguez [facility] CPT-93110 Level 4 Est. Patient 22:55:17 CDT Robbie Busby MD [facility] CPT-77298 Level 3 Est. Patient 12:38:24 CDT Desmond Diaz DO [facility] CPT-98223 Level 4 Est. Patient 11:25:03 OVEN OPERATOR AUTOMATIC Robbie Busby MD [facility] CPT-87129 Level 4 Est. Patient 14:50:10 CDT Robbie Busby MD [facility] CPT-78619 Level 4 Est. Patient 23:30:43 CDT Robbie Busby MD [facility] CPT-39150 Level 4 Est. Patient 10:30:43 CDT Robbie Busby MD [facility] CPT-25124 Level 3 Est. Patient 17:08:12 CDT Alex Shaw [facility] CPT-53212 Level 4 Est. Patient 17:51:38 CDT Robbie Busby MD [facility] CPT-24010 Level 4 Est. Patient 14:00:21 CDT Robbie Busby MD [facility] CPT-33146 Level 4 Est. Patient 12:46:48 CDT Robbie Busby MD [facility] CPT-35867 Level 4 Est. Patient 13:34:33 CDT Robbie Busby MD [facility] CPT-87663 Level 4 Est. Patient 16:58:28 CDT Robbie Busby MD [facility] CPT-03393 Level 3 Est. Patient 19:36:53 CDT Alex ALVAREZ [facility] CPT-48578 Level 3 Est. Patient 12:58:15 CDT Robbie Busby MD [facility] Procedures Code Procedure Name Date Entry Date Standard Description CPT-31073 Venipuncture Draw Fee 14:39:06 CDT CPT-53209 Ribs unilateral 2V - XRAY USE ONLY 12:10:11 CDT CPT-74702 First Vx - Ix admin for Medicare patients 16:32:53 CDT CPT-34357 Boostrix Intramuscular Suspension 5-2.5-18.5 16:32:53 CDT CPT-62484 TB Skin Test 11:42:28 CDT CPT-86606 Tdap 7yrs or > 11:42:28 CDT CPT-J0696 Rocephin 1000 mg (Ceftriaxone) 17:43:43 OVEN OPERATOR AUTOMATIC CPT-J1040 Depo Medrol 80 mg (Methyl Prednisolone Acetate) 17:43: 43 OVEN OPERATOR AUTOMATIC CPT-J1100 Decadron 8mg (Dexamethasone) 17:43:42 OVEN OPERATOR AUTOMATIC CPT-95839 Abx/Therapy Injection 17:43:42 OVEN OPERATOR AUTOMATIC CPT-35546 Abx/Therapy Injection 17:43:42 OVEN OPERATOR AUTOMATIC CPT-J1040 Depo Medrol 80 mg (Methyl Prednisolone Acetate) 09:43: 34 OVEN OPERATOR AUTOMATIC CPT-J1100 Decadron 8mg (Dexamethasone) 09:43:34 OVEN OPERATOR AUTOMATIC CPT-J0696 Rocephin 1gm Inj Solr 09:43:34 OVEN OPERATOR AUTOMATIC CPT-02183 Wound Culture - LAB USE ONLY 14:00:21 CDT CPT-I/D I/D Abscess 09:16:37 CDT CPT-87568 Venipuncture Draw Fee 15:20:23 CDT CPT-68700 Microalbumin - LAB USE ONLY 16:02:19 CDT CPT-77017 CBC - LAB USE ONLY 16:02:19 CDT CPT-15643 Venipuncture Draw Fee 16:02:19 CDT CPT-G0438 Initial Annual Wellness Exam 08:10:28 CDT CPT-80603 Venipuncture Draw Fee 13:07:17 CDT CPT-G0008 Administration of Influenza Virus Vaccine 16:09:59 CDT CPT-85148 Fluzone Quadrivalent Intramuscular Suspension 0.5 ML 16: 09:59 CDT CPT-41492 Spec Collection and Handling Fee 15:05:50 CDT
--- OUTSIDE RECORDS SUMMARY | 2018-04-18 11:48 | XMS REPORT | Clinical Summary ---
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 Desmond Diaz DO Other malignant secondary hypertension Tachycardia 785.0 Active Rober Rodríguez RADIAL SAW OPERATOR Tachycardia, unspecified Insect bite, infected 919.5 Resolved Desmond Diaz DO Insect bite, nonvenomous, of other, multiple, and unspecified sites, infected Abscess, skin 682.9 Resolved Desmond Diaz DO Cellulitis and abscess of unspecified sites URI 465.9 Resolved Desmond Diaz DO Acute upper respiratory infections of unspecified site Hypertension 401.9 Active Rober Rodríguez RADIAL SAW OPERATOR Unspecified essential hypertension Sinusitis - [...] Hypogonadism, low testosterone 257.2 Active Erin Mai RADIAL SAW OPERATOR Other testicular hypofunction Low back [...] 36.0-36.9, adult Sinusitis ICD-461.9 Inactive Emily Atwood [employer] 2017 Low back pain, acute ICD-724.2 Inactive Emily Atwood [employer] Low back pain, chronic ICD-724.2 Inactive Emily Atwood [employer] Bronchitis, acute ICD-466.0 Inactive Emily Atwood [employer] Onychomycosis, toenails ICD-110.1 Inactive Emily Atwood [employer] Dizziness ICD-780.4 Inactive Emily Atwood [employer] 2017 Folliculitis ICD-704.8 Inactive Emily Atwood [employer] Pharyngitis-Acute ICD-462 Inactive Emily Atwood [employer] Fatigue ICD-780.79 Inactive Emily Atwood [employer] 09/20 Hypertension, secondary, malignant ICD-405.09 Inactive Emily Atwood [employer] Insect bite, infected ICD-919.5 Inactive Emily Atwood [employer] Abscess, skin ICD-682.9 Inactive Emily Atwood [employer] URI ICD-465.9 Inactive Emily Atwood [employer] Sinusitis - acute ICD-461.9 Inactive Emily Atwood [employer] Acute confusion ICD-293.0 Inactive Emily Atwood [employer] Headache ICD-784.0 Inactive Emily Atwood [employer] 09/20 Back pain ICD-724.5 Inactive Emily Atwood [employer] 2017 Rib pain, right sided ICD-786.50 Inactive Emily Atwood [employer] Myalgias ICD-729.1 Inactive Emily Atwood [employer] 09/20 URI ICD-465.9 Inactive Emily Atwood [employer] Bronchitis-Acute ICD-466.0 Inactive Desmond Diaz DO Medication List Medication Instructions Start Date Stop Date Generic Name NDC Status Provider Patient Instruction MONTELUKAST SODIUM 10 MG ORAL TABLET 1 tab po daily for allergies MONTELUKAST SODIUM 91585178677 Active JONATHAN Moncada Active IMDUR 60 MG ORAL TABLET EXTENDED RELEASE 24 HOUR 1 po q day ISOSORBIDE MONONITRATE 94159164296 Active Emma Hernandez Active METOPROLOL SUCCINATE ER 200 MG ORAL TABLET EXTENDED RELEASE 24 HOUR take 1 tab po qday for high blood pressure and rapid pulse METOPROLOL SUCCINATE 67874665972 Active Robbie Busby MD Active SRTMUMIL-LKG-8 0.3 MG/24HR TRANSDERMAL PATCH WEEKLY apply 2 patches q week for HTN CLONIDINE HCL 28427409783 No Longer Active Robbie Busby MD Active IMDUR 60 MG ORAL TABLET EXTENDED RELEASE 24 HOUR take 1 tab po qday for blood pressure ISOSORBIDE MONONITRATE 65052716365 No Longer Active Robbie Busby MD Active TEMAZEPAM 15 MG ORAL CAPSULE 1 TAB PO Q HS TEMAZEPAM 30467231542 No Longer Active Robbie Busby MD Active TOPIRAMATE 50 MG ORAL TABLET 1 po BID for migraines TOPIRAMATE 78216940737 No Longer Active Robbie Busby MD Active CYCLOBENZAPRINE HCL 10 MG ORAL TABLET 1 tablet by mouth three times daily as needed for muscle spasm/pain CYCLOBENZAPRINE HCL 48085594166 No Longer Active Robbie Busby MD Active TOPROL XL 200 MG ORAL TABLET EXTENDED RELEASE 24 HOUR Take one by mouth daily METOPROLOL SUCCINATE 79590742535 No Longer Active Robbie Busby MD Active METFORMIN HCL 500 MG ORAL TABLET 1 tablet by mouth daily for diabetes type 2 METFORMIN HCL 80269446202 Active Robbie Busby MD Active SINGULAIR 10 MG ORAL TABLET 1 po qday for allergies. MONTELUKAST SODIUM 10324318879 No Longer Active Robbie Busby MD Active PREDNISONE 20 MG ORAL TABLET two tabs by mouth today, then one tab by mouth days two and three PREDNISONE 56111297366 No Longer Active Robbie Busby MD Active AZITHROMYCIN 250 MG ORAL TABLET 2 po qd x 1 day, then 1 po qd x 4 days 09/20 AZITHROMYCIN 92137754890 No Longer Active Desmond Diaz DO Active TOPIRAMATE 50 MG ORAL TABLET take 1 tab po BID for migraines. TOPIRAMATE 04592955994 No Longer Active Desmond Diaz DO Active CYCLOBENZAPRINE HCL 10 MG ORAL TABLET 1 po TID PRN muscle spasm/pain for 10 days CYCLOBENZAPRINE HCL 93796666955 No Longer Active Desmond Diaz DO Active GUAIFENESIN ER 600 MG ORAL TABLET EXTENDED RELEASE 12 HOUR 1 tab po q am 2016 GUAIFENESIN 10289120465 No Longer Active Robbie Busby MD Active DIVALPROEX SODIUM ER 500 MG ORAL TABLET EXTENDED RELEASE 24 HOUR Once daily DIVALPROEX SODIUM 00502409835 Active Robbie Busby MD Active DEPO-TESTOSTERONE 200 MG/ML INTRAMUSCULAR SOLUTION 1 IM Injections every 2 weeks for low testosterone TESTOSTERONE CYPIONATE 61581243497 Active Zulema Blank LPN Active FLUTICASONE PROPIONATE 50 MCG/ACT NASAL SUSPENSION 2 sprays per nostril bid for 1 week, then 1 spray bid FLUTICASONE PROPIONATE 32436715539 Active Rober Rodríguez APRN Active HYDRALAZINE HCL 25 MG ORAL TABLET Take 1 tab BID. HYDRALAZINE HCL 91069490310 Active Rober Rodríguez RADIAL SAW OPERATOR Active VITAMIN D3 98944 UNIT ORAL TABLET 2 po weekly CHOLECALCIFEROL 63549775270 Active Robbie Busby MD Active OXYCODONE HCL ER 10 MG ORAL TABLET ER 12 HOUR ABUSE-DETERRENT 1 tab po 3 times qd. OXYCODONE HCL 94060349028 Active Robbie Busby MD Active NITROSTAT 0.4 MG SUBLINGUAL TABLET SUBLINGUAL PRN NITROGLYCERIN 53300241860 No Longer Active Robbie Busby MD Active LORATADINE 10 MG ORAL TABLET 1 tablet by mouth daily for congestion and allergies. LORATADINE 61910413448 No Longer Active Robbie Busby MD Active FLONASE 50 MCG/ACT NASAL SUSPENSION 1 spray each nostril twice daily for allergies and runny nose FLUTICASONE PROPIONATE 85751119939 No Longer Active Robbie Busby MD Active FIORICET 50-300-40 MG ORAL CAPSULE take 1 tab po qday prn migraines. KBCBRVIHTI-[id number]-TWIKZSID 11036639236 No Longer Active Robbie Busby MD Active VITAMIN D3 69569 UNIT ORAL CAPSULE 2 CAPS PO WEEKLY CHOLECALCIFEROL 80362059534 No Longer Active Robbie Busby MD Active CYCLOBENZAPRINE HCL 10 MG ORAL TABLET 1 tablet by mouth three times daily as needed for muscle spasm/pain for 10 days CYCLOBENZAPRINE HCL 71615949129 No Longer Active Robbie Busby MD Active PREDNISONE 20 MG ORAL TABLET take 3 tabs daily for 3 days, 2 tabs daily for 3 days, 1 tab daily for 3 days, 1/2 tab daily for 4 days PREDNISONE 05615681907 No Longer Active Erin Arell RADIAL SAW OPERATOR Active CLONIDINE HCL 0.2 MG ORAL TABLET 1 TAB BY MOUTH EVERY 8 HOURS CLONIDINE HCL 77602179266 No Longer Active Erin Arell RADIAL SAW OPERATOR Active MECLIZINE HCL 25 MG ORAL TABLET one 4 times a day as needed for dizziness MECLIZINE HCL 22506465153 No Longer Active Erin Arell RADIAL SAW OPERATOR Active SPIRONOLACTONE 25 MG ORAL TABLET 4 tablets by mouth daily SPIRONOLACTONE 31152557283 No Longer Active Erin Arell RADIAL SAW OPERATOR Active LEVAQUIN 500 MG ORAL TABLET 1 tablet by mouth daily for 7 days LEVOFLOXACIN 36102741799 No Longer Active Erin Arell RADIAL SAW OPERATOR Active BACTRIM DS 800-160 MG ORAL TABLET 1 tab by mouth twice daily 2015 TRIMETHOPRIM-SULFAMETHOXAZOLE 27080909143 No Longer Active Robbie Busby MD Active HYDRALAZINE HCL 50 MG ORAL TABLET TWO BY MOUTH THREE TIMES DAILY HYDRALAZINE HCL 90127269314 No Longer Active Jillina Frazell RADIAL SAW OPERATOR Active HYDROCODONE-ACETAMINOPHEN 5-325 MG ORAL TABLET 1 tab by mouth BID prn back pain HYDROCODONE-ACETAMINOPHEN 06625325302 No Longer Active Jillina Frazell RADIAL SAW OPERATOR Active HYDROCHLOROTHIAZIDE TABLET Take one by mouth daily HYDROCHLOROTHIAZIDE TABS 24970114774 No Longer Active Jillina Frazell RADIAL SAW OPERATOR Active LAMISIL 125 MG ORAL PACKET 1 TAB PO DAILY TERBINAFINE HCL 83092683933 No Longer Active Jillina Frazell RADIAL SAW OPERATOR Active TRILEPTAL 150 MG ORAL TABLET 1 TAB PO Q HS OXCARBAZEPINE 63470785564 No Longer Active Jillina Frazell RADIAL SAW OPERATOR Active BETADINE 10 % EXTERNAL SOLUTION 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 07/29 POVIDONE-IODINE 72548767579 No Longer Active Rober Rodríguez APRN Active NYSTATIN 527290 UNIT/ML MOUTH/THROAT SUSPENSION 5mL po QID x 10 days NYSTATIN 71021841336 No Longer Active Erin Mai APRN Active PREDNISONE 20 MG ORAL TABLET 1 tablet twice daily for 2 days, then 1 tablet once daily for 2 days PREDNISONE 90500724823 No Longer Active Robbie Busby MD Active CEFDINIR 300 MG ORAL CAPSULE Take 1 cap po bid x 10 days CEFDINIR 62864677709 No Longer Active Robbie Busby MD Active AMLODIPINE BESYLATE 10 MG ORAL TABLET 1 tablet by mouth daily AMLODIPINE BESYLATE 97181984983 Active Robbie Busby MD Active CARVEDILOL 25 MG ORAL TABLET 1 & 1/2 TAB po BID CARVEDILOL 44149677057 Active Robbie Busby MD Active NEXIUM 40 MG ORAL CAPSULE DELAYED RELEASE 1 cap by mouth daily ESOMEPRAZOLE MAGNESIUM 75901694691 Active Robbie Busby MD Active PROTONIX 40 MG INTRAVENOUS SOLUTION RECONSTITUTED 1 po qday for acid reflux PANTOPRAZOLE SODIUM 09643214202 No Longer Active Gali Raida Active KEFLEX 500 MG ORAL CAPSULE 1 po TID x 10 days CEPHALEXIN 95968426842 No Longer Active Robbie Busby MD Active ALPRAZOLAM 2 MG ORAL TABLET 1 TAB PO BID ALPRAZOLAM 23444736638 Active Robbie Busby MD Active FENOFIBRATE 145 MG ORAL TABLET Take one by mouth daily FENOFIBRATE 23073061329 No Longer Active Robbie Busby MD Active SPIRONOLACTONE 50 MG ORAL TABLET 1 tablet by mouth twice a day SPIRONOLACTONE 36493734292 No Longer Active Robbie Busby MD Active HYDRALAZINE HCL 25 MG ORAL TABLET 1 tablet by mouth tid for hypertension 2013 HYDRALAZINE HCL 92479397114 No Longer Active Robbie Busby MD Active VIIBRYD 40 MG ORAL TABLET take 1 tab po qday for depression. 2014 VILAZODONE HCL 72648553093 No Longer Active Robbie Busby MD Active TERBINAFINE HCL 250 MG ORAL TABLET 1 tab po qday for foot infection TERBINAFINE HCL 36903179330 No Longer Active Robbie Busby MD Active GABAPENTIN 300 MG ORAL CAPSULE 1 po q hs for nerve pain GABAPENTIN 28336938878 Active Robbie Busby MD Active CHERATUSSIN AC 100-10 MG/5ML ORAL SOLUTION 7.5 mL PO q 4-6 hrs PRN cough 2014 GUAIFENESIN-CODEINE 52879103531 No Longer Active Robbie Busby MD Active AZITHROMYCIN 250 MG ORAL TABLET 2 tablets PO today---then, 1 tablet PO daily x 4 more days (and 1 optional refill) AZITHROMYCIN 19453587572 No Longer Active Robbie Busby MD Active NORVASC 10 MG ORAL TABLET 1 tablet by mouth daily AMLODIPINE BESYLATE 88557876329 No Longer Active Alex ALVAREZ Active ISOSORBIDE DINITRATE 30 MG ORAL TABLET Take one by mouth daily ISOSORBIDE DINITRATE 58934838218 No Longer Active Robbie Busby MD Active VIIBRYD 40 MG ORAL TABLET 1 TA B PO DAILY VILAZODONE HCL 19683847242 Active Robbie Busby MD Active ZITHROMAX 250 MG ORAL TABLET 2 po today, then 1 po q days 2-5 AZITHROMYCIN 16753733512 No Longer Active Robbie Busby MD Active DOXAZOSIN MESYLATE 4 MG ORAL TABLET Take one by mouth daily DOXAZOSIN MESYLATE 59243744076 Active Robbie Busby MD Active VENLAFAXINE HCL ER 150 MG ORAL TABLET EXTENDED RELEASE 24 HOUR Take one by mouth daily VENLAFAXINE HCL 69625447070 Active Robbie Busby MD Active LIPITOR 40 MG ORAL TABLET Take one by mouth daily ATORVASTATIN CALCIUM 90084412505 Active Robbie Busby MD Active ISOSORBIDE DINITRATE 30 MG ORAL TABLET Take one by mouth daily ISOSORBIDE DINITRATE 30 MG ORAL TABLET 694112 ISOSORBIDE DINITRATE Inactive NORVASC 10 MG ORAL TABLET 1 tablet by mouth daily NORVASC 10 MG ORAL TABLET 857879 AMLODIPINE BESYLATE Inactive AZITHROMYCIN 250 MG ORAL TABLET 2 tablets PO today---then, 1 tablet PO daily x 4 more days (and 1 optional refill) AZITHROMYCIN 250 MG ORAL TABLET 009581 AZITHROMYCIN Inactive CHERATUSSIN AC 100-10 MG/5ML ORAL SOLUTION 7.5 mL PO q 4-6 hrs PRN cough 2014 CHERATUSSIN AC 100-10 MG/5ML ORAL SOLUTION 292825 GUAIFENESIN-CODEINE Inactive VIIBRYD 40 MG ORAL TABLET take 1 tab po qday for depression. 2014 VIIBRYD 40 MG ORAL TABLET VILAZODONE HCL Inactive HYDRALAZINE HCL 25 MG ORAL TABLET 1 tablet by mouth tid for hypertension 2013 HYDRALAZINE HCL 25 MG ORAL TABLET 506599 HYDRALAZINE HCL Inactive SPIRONOLACTONE 50 MG ORAL TABLET 1 tablet by mouth twice a day SPIRONOLACTONE 50 MG ORAL TABLET 595058 SPIRONOLACTONE Inactive FENOFIBRATE 145 MG ORAL TABLET Take one by mouth daily FENOFIBRATE 145 MG ORAL TABLET 763980 FENOFIBRATE Inactive PROTONIX 40 MG INTRAVENOUS SOLUTION RECONSTITUTED 1 po qday for acid reflux PROTONIX 40 MG INTRAVENOUS SOLUTION RECONSTITUTED 309383 PANTOPRAZOLE SODIUM Inactive CEFDINIR 300 MG ORAL CAPSULE Take 1 cap po bid x 10 days CEFDINIR 300 MG ORAL CAPSULE 453815 CEFDINIR Inactive PREDNISONE 20 MG ORAL TABLET 1 tablet twice daily for 2 days, then 1 tablet once daily for 2 days PREDNISONE 20 MG ORAL TABLET 364009 PREDNISONE Inactive NYSTATIN 915842 UNIT/ML MOUTH/THROAT SUSPENSION 5mL po QID x 10 days NYSTATIN 752289 UNIT/ML MOUTH/THROAT SUSPENSION 880103 NYSTATIN Inactive BETADINE 10 % EXTERNAL SOLUTION 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 07/29 BETADINE 10 % EXTERNAL SOLUTION 5684242 POVIDONE-IODINE Inactive TRILEPTAL 150 MG ORAL TABLET 1 TAB PO Q HS TRILEPTAL 150 MG ORAL TABLET 648510 OXCARBAZEPINE Inactive LAMISIL 125 MG ORAL PACKET 1 TAB PO DAILY LAMISIL 125 MG ORAL PACKET TERBINAFINE HCL Inactive HYDROCHLOROTHIAZIDE TABLET Take one by mouth daily HYDROCHLOROTHIAZIDE TABLET HYDROCHLOROTHIAZIDE TABS Inactive HYDROCODONE-ACETAMINOPHEN 5-325 MG ORAL TABLET 1 tab by mouth BID prn back pain HYDROCODONE-ACETAMINOPHEN 5-325 MG ORAL TABLET 645757 HYDROCODONE-ACETAMINOPHEN Inactive HYDRALAZINE HCL 50 MG ORAL TABLET TWO BY MOUTH THREE TIMES DAILY HYDRALAZINE HCL 50 MG ORAL TABLET 221579 HYDRALAZINE HCL Inactive LEVAQUIN 500 MG ORAL TABLET 1 tablet by mouth daily for 7 days LEVAQUIN 500 MG ORAL TABLET 735748 LEVOFLOXACIN Inactive SPIRONOLACTONE 25 MG ORAL TABLET 4 tablets by mouth daily SPIRONOLACTONE 25 MG ORAL TABLET 704597 SPIRONOLACTONE Inactive MECLIZINE HCL 25 MG ORAL TABLET one 4 times a day as needed for dizziness MECLIZINE HCL 25 MG ORAL TABLET 783148 MECLIZINE HCL Inactive CLONIDINE HCL 0.2 MG ORAL TABLET 1 TAB BY MOUTH EVERY 8 HOURS CLONIDINE HCL 0.2 MG ORAL TABLET 254663 CLONIDINE HCL Inactive CYCLOBENZAPRINE HCL 10 MG ORAL TABLET 1 tablet by mouth three times daily as needed for muscle spasm/pain for 10 days CYCLOBENZAPRINE HCL 10 MG ORAL TABLET 728745 CYCLOBENZAPRINE HCL Inactive VITAMIN D3 19609 UNIT ORAL CAPSULE 2 CAPS PO WEEKLY VITAMIN D3 17927 UNIT ORAL CAPSULE CHOLECALCIFEROL Inactive FIORICET 50-300-40 MG ORAL CAPSULE take 1 tab po qday prn migraines. FIORICET 50-300-40 MG ORAL CAPSULE 302388 BUTALBITAL-APAP- CAFFEINE Inactive FLONASE 50 MCG/ACT NASAL SUSPENSION 1 spray each nostril twice daily for allergies and runny nose FLONASE 50 MCG/ACT NASAL SUSPENSION 1276257 FLUTICASONE PROPIONATE Inactive LORATADINE 10 MG ORAL TABLET 1 tablet by mouth daily for congestion and allergies. LORATADINE 10 MG ORAL TABLET 999866 LORATADINE Inactive NITROSTAT 0.4 MG SUBLINGUAL TABLET SUBLINGUAL PRN NITROSTAT 0.4 MG SUBLINGUAL TABLET SUBLINGUAL 058772 NITROGLYCERIN Inactive GUAIFENESIN ER 600 MG ORAL TABLET EXTENDED RELEASE 12 HOUR 1 tab po q am 2016 GUAIFENESIN ER 600 MG ORAL TABLET EXTENDED RELEASE 12 HOUR GUAIFENESIN Inactive CYCLOBENZAPRINE HCL 10 MG ORAL TABLET 1 po TID PRN muscle spasm/pain for 10 days CYCLOBENZAPRINE HCL 10 MG ORAL TABLET 759265 CYCLOBENZAPRINE HCL Inactive TOPIRAMATE 50 MG ORAL TABLET take 1 tab po BID for migraines. TOPIRAMATE 50 MG ORAL TABLET 641825 TOPIRAMATE Inactive PREDNISONE 20 MG ORAL TABLET two tabs by mouth today, then one tab by mouth days two and three PREDNISONE 20 MG ORAL TABLET 077968 PREDNISONE Inactive TOPROL XL 200 MG ORAL TABLET EXTENDED RELEASE 24 HOUR Take one by mouth daily TOPROL XL 200 MG ORAL TABLET EXTENDED RELEASE 24 HOUR METOPROLOL SUCCINATE Inactive CYCLOBENZAPRINE HCL 10 MG ORAL TABLET 1 tablet by mouth three times daily as needed for muscle spasm/pain CYCLOBENZAPRINE HCL 10 MG ORAL TABLET 752980 CYCLOBENZAPRINE HCL Inactive TOPIRAMATE 50 MG ORAL TABLET 1 po BID for migraines TOPIRAMATE 50 MG ORAL TABLET 599095 TOPIRAMATE Inactive TEMAZEPAM 15 MG ORAL CAPSULE 1 TAB PO Q HS TEMAZEPAM 15 MG ORAL CAPSULE 754502 TEMAZEPAM Inactive IMDUR 60 MG ORAL TABLET EXTENDED RELEASE 24 HOUR take 1 tab po qday for blood pressure IMDUR 60 MG ORAL TABLET EXTENDED RELEASE 24 HOUR ISOSORBIDE MONONITRATE Inactive UCVVUPMS-SHY-4 0.3 MG/24HR TRANSDERMAL PATCH WEEKLY apply 2 patches q week for HTN ADDMDMQO-JTN-1 0.3 MG/24HR TRANSDERMAL PATCH WEEKLY 303758 CLONIDINE HCL Inactive ZITHROMAX 250 MG ORAL TABLET 2 po today, then 1 po q days 2-5 ZITHROMAX 250 MG ORAL TABLET 064894 AZITHROMYCIN Inactive TERBINAFINE HCL 250 MG ORAL TABLET 1 tab po qday for foot infection TERBINAFINE HCL 250 MG ORAL TABLET 996169 TERBINAFINE HCL Inactive KEFLEX 500 MG ORAL CAPSULE 1 po TID x 10 days KEFLEX 500 MG ORAL CAPSULE 553545 CEPHALEXIN Inactive BACTRIM DS 800-160 MG ORAL TABLET 1 tab by mouth twice daily 2015 BACTRIM DS 800-160 MG ORAL TABLET 767631 TRIMETHOPRIM- SULFAMETHOXAZOLE Inactive PREDNISONE 20 MG ORAL TABLET take 3 tabs daily for 3 days, 2 tabs daily for 3 days, 1 tab daily for 3 days, 1/2 tab daily for 4 days PREDNISONE 20 MG ORAL TABLET 606790 PREDNISONE Inactive AZITHROMYCIN 250 MG ORAL TABLET 2 po qd x 1 day, then 1 po qd x 4 days 09/20 AZITHROMYCIN 250 MG ORAL TABLET 831788 AZITHROMYCIN Inactive SINGULAIR 10 MG ORAL TABLET 1 po qday for allergies. SINGULAIR 10 MG ORAL TABLET 366581 MONTELUKAST SODIUM Inactive Advance Directives Directive Description [...] AUTO - Chemistry sodium, serum 142 mmol/L 255-498 4858/07/17 carbon dioxide, venous blood 28.2 mmol/L 21.0-32.0 [...] Panel - Chemistry sodium, serum 141 mmol/L 770-051 8441/02/13 carbon dioxide, venous blood 23.9 mmol/L 21.0-32.0 [...] 6.9 % 4.3-6.0 sodium, serum 139 mmol/L 800-993 1549/01/04 potassium, serum 3.9 mmol/L 3.5-5.2 chloride, serum [...] 1.80 ng/mL 0.00-4.00 Lab Report: VITAMIN D, 25-HYDROXY/82363 - Chemistry vitamin D 25-hydroxy, serum 25 ng/mL 30-100 Encounters Code Encounter Date Provider Facility CPT-09027 Level 3 Est. Patient 16:04:17 CDT Robbie Busby MD [facility] CPT-60783 Level 4 Est. Patient 09:50:01 HEAVY THREADER Robbie Busby MD [facility] CPT-64217 Level 4 Est. Patient 09:42:08 HEAVY THREADER Robbie Busby MD [facility] CPT-82955 Level 4 Est. Patient 13:07:39 HEAVY THREADER Robbie Busby MD [facility] CPT-06814 Level 4 Est. Patient 15:23:44 HEAVY THREADER Desmond Diaz DO [facility] CPT-91187 Level 3 Est. Patient 15:40:49 CDT Robbie Busby MD [facility] CPT-54907 Level 4 Est. Patient 15:18:19 CDT Robbie Busby MD [facility] CPT-22301 Level 3 Est. Patient 09:00:37 CDT Rober Rodolfoneha [facility] CPT-45390 Level 3 Est. Patient 16:07:10 CDT Robbie Busby MD [facility] CPT-93445 Level 4 Est. Patient 11:56:16 CDT Erin Miguelzane [facility] CPT-36359 Level 3 Est. Patient 17:48:02 CDT Robbie Busby MD [facility] CPT-85249 Level 4 Est. Patient 12:00:49 HEAVY THREADER Rober Rodríguez [facility] CPT-14465 Level 3 Est. Patient 09:16:37 CDT Robbie Busby MD [facility] CPT-90132 Level 3 Est. Patient 19:38:43 CDT Robbie Busby MD [facility] CPT-03323 Level 3 Est. Patient 11:53:38 CDT Robbie Busby MD [facility] CPT-89855 Level 4 Est. Patient 12:52:22 CDT Rober Rodríguez [facility] CPT-45310 Level 4 Est. Patient 22:55:17 CDT Robbie Busby MD [facility] CPT-80469 Level 3 Est. Patient 12:38:24 CDT Desmond Diaz DO [facility] CPT-37273 Level 4 Est. Patient 11:25:03 HEAVY THREADER Robbie Busby MD [facility] CPT-54675 Level 4 Est. Patient 14:50:10 CDT Robbie Busby MD [facility] CPT-52655 Level 4 Est. Patient 23:30:43 CDT Robbie Busby MD [facility] CPT-77267 Level 4 Est. Patient 10:30:43 CDT Robbie Busby MD [facility] CPT-43222 Level 3 Est. Patient 17:08:[address] [facility] CPT-00553 Level 4 Est. Patient 17:51:38 CDT Robbie Busby MD [facility] CPT-13118 Level 4 Est. Patient 14:00:21 CDT Robbie Busby MD [facility] CPT-56052 Level 4 Est. Patient 12:46:48 CDT Robbie Busby MD [facility] CPT-13217 Level 4 Est. Patient 13:34:33 CDT Robbie Busby MD [facility] CPT-13149 Level 4 Est. Patient 16:58:28 CDT Robbie Busby MD [facility] CPT-81108 Level 3 Est. Patient 19:36:53 CDT Alex Shaw [facility] CPT-88318 Level 3 Est. Patient 12:58:15 CDT Robbie Busby MD [facility] Procedures Code Procedure Name Date Entry Date Standard Description CPT-J1100 Decadron 8mg (Dexamethasone) 16:04:17 CDT CPT-J1040 Depo Medrol 80 mg (Methyl Prednisolone Acetate) 16:04: 17 CDT CPT-J1071 Depo Testosterone 200mg 08:56:46 CDT CPT-50570 Abx/Therapy Injection 08:56:45 CDT CPT-J1071 Depo Testosterone 200mg 08:26:27 CDT CPT-76779 Abx/Therapy Injection 08:26:27 CDT CPT-J1071 Depo Testosterone 200mg 10:27:10 CDT CPT-93720 Abx/Therapy Injection 10:27:10 CDT CPT-J1071 Depo Testosterone 200mg 16:10:29 HEAVY THREADER CPT-82180 Abx/Therapy Injection 16:10:29 HEAVY THREADER CPT-J1071 Depo Testosterone 200mg 16:13:47 HEAVY THREADER CPT-16860 Abx/Therapy Injection 16:13:46 HEAVY THREADER CPT-J1071 Depo Testosterone 200mg 15:33:58 HEAVY THREADER CPT-46797 Abx/Therapy Injection 15:33:58 HEAVY THREADER CPT-J1071 Depo Testosterone 200mg 09:38:36 HEAVY THREADER CPT-69600 Abx/Therapy Injection 09:38:36 HEAVY THREADER CPT-J1071 Depo Testosterone 200mg 10:22:56 HEAVY THREADER CPT-42705 Abx/Therapy Injection 10:22:56 HEAVY THREADER CPT-J1071 Depo Testosterone 200mg 15:40:23 CDT CPT-95461 Abx/Therapy Injection 15:40:23 CDT CPT-J1071 Depo Testosterone 200mg 14:20:43 CDT CPT-37705 Abx/Therapy Injection 14:20:43 CDT CPT-J1071 Depo Testosterone 200mg 14:17:22 CDT CPT-98365 Abx/Therapy Injection 14:17:22 CDT CPT-J1071 Depo Testosterone 200mg 09:03:53 CDT CPT-65500 Abx/Therapy Injection 09:03:53 CDT CPT-G0439 Subsequent Annual Wellness Exam 16:47:44 CDT CPT-J1071 Depo Testosterone 200mg 09:06:28 CDT CPT-74513 Abx/Therapy Injection 09:06:28 CDT CPT-J1071 Depo Testosterone 200mg 08:30:01 CDT CPT-87681 Abx/Therapy Injection 08:30:01 CDT CPT-J1071 Depo Testosterone 200mg 08:24:00 CDT CPT-23537 Abx/Therapy Injection 08:24:00 CDT CPT-49000 Venipuncture Draw Fee 14:39:06 CDT CPT-90569 Ribs unilateral 2V - XRAY USE ONLY 12:10:11 CDT CPT-39141 First Vx - Ix admin for Medicare patients 16:32:53 CDT CPT-23960 Boostrix Intramuscular Suspension 5-2.5-18.5 16:32:53 CDT CPT-84155 TB Skin Test 11:42:28 CDT CPT-80549 Tdap 7yrs or > 11:42:28 CDT CPT-J0696 Rocephin 1000 mg (Ceftriaxone) 17:43:43 HEAVY THREADER CPT-J1040 Depo Medrol 80 mg (Methyl Prednisolone Acetate) 17:43: 43 HEAVY THREADER CPT-J1100 Decadron 8mg (Dexamethasone) 17:43:42 HEAVY THREADER CPT-13136 Abx/Therapy Injection 17:43:42 HEAVY THREADER CPT-32537 Abx/Therapy Injection 17:43:42 HEAVY THREADER CPT-J1040 Depo Medrol 80 mg (Methyl Prednisolone Acetate) 09:43: 34 HEAVY THREADER CPT-J1100 Decadron 8mg (Dexamethasone) 09:43:34 HEAVY THREADER CPT-J0696 Rocephin 1gm Inj Solr 09:43:34 HEAVY THREADER CPT-95504 Wound Culture - LAB USE ONLY 14:00:21 CDT CPT-I/D I/D Abscess 09:16:37 CDT CPT-18017 Venipuncture Draw Fee 15:20:23 CDT CPT-57772 Microalbumin - LAB USE ONLY 16:02:19 CDT CPT-68350 CBC - LAB USE ONLY 16:02:19 CDT CPT-89186 Venipuncture Draw Fee 16:02:19 CDT CPT-G0438 Initial Annual Wellness Exam 08:10:28 CDT CPT-83339 Venipuncture Draw Fee 13:07:17 CDT CPT-G0008 Administration of Influenza Virus Vaccine 16:09:59 CDT CPT-63572 Fluzone Quadrivalent Intramuscular Suspension 0.5 ML 16: 09:59 CDT CPT-54830 Spec Collection and Handling Fee 15:05:50 CDT
--- OUTSIDE RECORDS SUMMARY | 2018-04-18 11:49 | XMS REPORT | Clinical Summary ---
Author Author Admin, AKUA Organization [employer] [facility] Address Unknown Phone Unavailable Allergies, Adverse [...] chronic, stage III 585.3 Active Ca Garcia [facility] Chronic kidney disease, Stage III (moderate) C V A / Stroke Active Robbie Busby MD Myocardial Infarction: Active Robbie Busby MD Acute myocardial infarction, unspecified site, initial episode of care ( History of) Sleep apnea, chronic 780.57 Active Erin Garsia [employer] ENGINEER Unspecified sleep apnea Continuous positive airway pressure rx V46.2 Active Erin Garsia DESKTOP ENGINEER Other dependence on machines, 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 Fatigue 780.79 Resolved Desmond Diaz DO Other malaise and fatigue Hypertension, secondary, 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 Desmond Diaz DO Other malignant secondary hypertension Tachycardia 785.0 Active Rober Rodríguez DESKTOP ENGINEER Tachycardia, unspecified Insect bite, infected 919.5 Resolved Desmond Diaz DO Insect bite, nonvenomous, of other, multiple, and unspecified sites, infected Abscess, skin 682.9 Resolved Desmond Diaz DO Cellulitis and abscess of unspecified sites URI 465.9 Resolved Desmond Diaz DO Acute upper respiratory infections of unspecified site Hypertension 401.9 Active Rober Rodríguez DESKTOP ENGINEER Unspecified essential hypertension Sinusitis - acute 461.9 Resolved Desmodn Dante Joe DO Acute sinusitis, unspecified Acute [...] Hypogonadism, low testosterone 257.2 Active Erin Garsia DESKTOP ENGINEER Other testicular hypofunction Low back pain, chronic 724.2 Active Robbie Busby MD Lumbago Bronchitis-Acute 466.0 Active Desmond Dante Joe DO Acute bronchitis Polydipsia 783.5 Active Desmond Dante Joe DO Polydipsia Low back pain, acute ICD-724.2 Inactive Emily Atwood [employer] Low back pain, chronic ICD-724.2 Inactive Emily Atwood [employer] Bronchitis, acute ICD-466.0 Inactive Emily Atwood [employer] Onychomycosis, toenails ICD-110.1 Inactive Emily Atwood [employer] Dizziness ICD-780.4 Inactive Emily Atwood [employer] 2017 Folliculitis ICD-704.8 Inactive Emily Atwood [employer] PRESIDENT [employer] Pharyngitis-Acute ICD-462 Inactive Emily Atwood [employer] Fatigue ICD-780.79 Inactive Emily Atwood [employer] PRES[employer] 09/20 Hypertension, secondary, malignant ICD-405.09 Inactive Emily Atwood [employer] Insect bite, infected ICD-919.5 Inactive Emily Atwood [employer] Abscess, skin ICD-682.9 Inactive Emily Atwood [employer] URI ICD-465.9 Inactive Emily Atwood [employer] Sinusitis - acute ICD-461.9 Inactive Emily Atwood [employer] Acute confusion ICD-293.0 Inactive Emily Atwood [employer] Headache ICD-784.0 Inactive Emily Atwood [employer]ICE [employer]IDENT [employer] 09/20 Back pain ICD-724.5 Inactive Emily Atwood [employer] 2017 Rib pain, right sided ICD-786.50 Inactive Emily Atwood [employer] Myalgias ICD-729.1 Inactive Emily Atwood [employer]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 TOPIRAMATE 73292896720 No Longer Active Desmond Diaz DO Active CYCLOBENZAPRINE HCL 10 MG ORAL TABLET 1 po TID PRN muscle spasm/pain for 10 days CYCLOBENZAPRINE HCL 74713654707 No Longer Active Desmond Diaz DO Active GUAIFENESIN ER 600 MG ORAL TABLET EXTENDED RELEASE 12 HOUR 1 tab po q am 2016 GUAIFENESIN 89790752892 No Longer Active Robbie Busby MD Active DIVALPROEX SODIUM ER 500 MG ORAL TABLET EXTENDED RELEASE 24 HOUR Once daily DIVALPROEX SODIUM 43716149945 Active Robbie Busby MD Active DEPO-TESTOSTERONE 200 MG/ML INTRAMUSCULAR SOLUTION 1 IM Injections every 2 weeks for low testosterone TESTOSTERONE CYPIONATE 12243644968 Active Zulema Blank LPN Active FLUTICASONE PROPIONATE 50 MCG/ACT NASAL SUSPENSION 2 sprays per nostril bid for 1 week, then 1 spray bid FLUTICASONE PROPIONATE 74516191772 Active Rober Rodríguez APRN Active HYDRALAZINE HCL 25 MG ORAL TABLET Take 1 tab BID. HYDRALAZINE HCL 01509828266 Active Rober Rodríguez APRN Active VITAMIN D3 64505 UNIT ORAL TABLET 2 po weekly CHOLECALCIFEROL 33904418818 Active Robbie Busby MD Active OXYCODONE HCL ER 10 MG ORAL TABLET ER 12 HOUR ABUSE-DETERRENT 1 tab po 3 times qd. OXYCODONE HCL 59933123021 Active Robbie Busby MD Active NITROSTAT 0.4 MG SUBLINGUAL TABLET SUBLINGUAL PRN NITROGLYCERIN 70356740470 No Longer Active Robbie Busby MD Active LORATADINE 10 MG ORAL TABLET 1 tablet by mouth daily for congestion and allergies. LORATADINE 04191375148 No Longer Active Robbie Busby MD Active FLONASE 50 MCG/ACT NASAL SUSPENSION 1 spray each nostril twice daily for allergies and runny nose FLUTICASONE PROPIONATE 60418490497 No Longer Active Robbie Busby MD Active FIORICET 50-300-40 MG ORAL CAPSULE take 1 tab po qday prn migraines. GGBUXETSIF-ENHO-UFTIHDXG 18037386975 No Longer Active Robbie Busby MD Active VITAMIN D3 53030 UNIT ORAL CAPSULE 2 CAPS PO WEEKLY CHOLECALCIFEROL 04336654992 No Longer Active Robbie Busby MD Active CYCLOBENZAPRINE HCL 10 MG ORAL TABLET 1 tablet by mouth three times daily as needed for muscle spasm/pain for 10 days CYCLOBENZAPRINE HCL 93008745370 No Longer Active Robbie Busby MD Active PREDNISONE 20 MG ORAL TABLET take 3 tabs daily for 3 days, 2 tabs daily for 3 days, 1 tab daily for 3 days, 1/2 tab daily for 4 days PREDNISONE 29595022825 No Longer Active Erin Garsia APRN Active CLONIDINE HCL 0.2 MG ORAL TABLET 1 TAB BY MOUTH EVERY 8 HOURS CLONIDINE HCL 87690276085 No Longer Active Erin Garsia APRN Active MECLIZINE HCL 25 MG ORAL TABLET one 4 times a day as needed for dizziness MECLIZINE HCL 19912977915 No Longer Active Erin Garsai APRN Active SPIRONOLACTONE 25 MG ORAL TABLET 4 tablets by mouth daily SPIRONOLACTONE 72799404572 No Longer Active Erin Garsia APRN Active LEVAQUIN 500 MG ORAL TABLET 1 tablet by mouth daily for 7 days LEVOFLOXACIN 97587117352 No Longer Active Erin Garsia APRN Active BACTRIM DS 800-160 MG ORAL TABLET 1 tab by mouth twice daily 2015 TRIMETHOPRIM-SULFAMETHOXAZOLE 45935615890 No Longer Active Robbie Busby MD Active HYDRALAZINE HCL 50 MG ORAL TABLET TWO BY MOUTH THREE TIMES DAILY HYDRALAZINE HCL 45991503146 No Longer Active Jillina Frazell DESKTOP ENGINEER Active HYDROCODONE-ACETAMINOPHEN 5-325 MG ORAL TABLET 1 tab by mouth BID prn back pain HYDROCODONE-ACETAMINOPHEN 84840309691 No Longer Active Jillina Frazell DESKTOP ENGINEER Active HYDROCHLOROTHIAZIDE TABLET Take one by mouth daily HYDROCHLOROTHIAZIDE TABS 77519625368 No Longer Active Jillina Frazell DESKTOP ENGINEER Active LAMISIL 125 MG ORAL PACKET 1 TAB PO DAILY TERBINAFINE HCL 76452223216 No Longer Active Jillina Frazell DESKTOP ENGINEER Active TRILEPTAL 150 MG ORAL TABLET 1 TAB PO Q HS OXCARBAZEPINE 86684735003 No Longer Active Jillina Frazell DESKTOP ENGINEER Active BETADINE 10 % EXTERNAL SOLUTION 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 07/29 POVIDONE-IODINE 19473795493 No Longer Active Jillina Frazell DESKTOP ENGINEER Active NYSTATIN 151302 UNIT/ML MOUTH/THROAT SUSPENSION 5mL po QID x 10 days NYSTATIN 71248026923 No Longer Active Erin Garsia APRN Active PREDNISONE 20 MG ORAL TABLET 1 tablet twice daily for 2 days, then 1 tablet once daily for 2 days PREDNISONE 89626554923 No Longer Active Robbie Busby MD Active CEFDINIR 300 MG ORAL CAPSULE Take 1 cap po bid x 10 days CEFDINIR 80421151517 No Longer Active Robbie Busby MD Active AMLODIPINE BESYLATE 10 MG ORAL TABLET 1 tablet by mouth daily AMLODIPINE BESYLATE 66011598750 Active Robbie Busby MD Active CARVEDILOL 25 MG ORAL TABLET 1 & 1/2 TAB po BID CARVEDILOL 48275426137 Active Robbie Busby MD Active NEXIUM 40 MG ORAL CAPSULE DELAYED RELEASE 1 cap by mouth daily ESOMEPRAZOLE MAGNESIUM 43345583078 Active Robbie Busby MD Active PROTONIX 40 MG INTRAVENOUS SOLUTION RECONSTITUTED 1 po qday for acid reflux PANTOPRAZOLE SODIUM 82860015415 No Longer Active Galileonila Negro Active KEFLEX 500 MG ORAL CAPSULE 1 po TID x 10 days CEPHALEXIN 05262081356 No Longer Active Robbie Busby MD Active TEMAZEPAM 15 MG ORAL CAPSULE 1 TAB PO Q HS TEMAZEPAM 87382820352 Active Robbie Busby MD Active ALPRAZOLAM 2 MG ORAL TABLET 1 TAB PO BID ALPRAZOLAM 41716238301 Active Robbie Busby MD Active FENOFIBRATE 145 MG ORAL TABLET Take one by mouth daily FENOFIBRATE 93064249593 No Longer Active Robbie Busby MD Active SPIRONOLACTONE 50 MG ORAL TABLET 1 tablet by mouth twice a day SPIRONOLACTONE 34199857644 No Longer Active Robbie Busby MD Active HYDRALAZINE HCL 25 MG ORAL TABLET 1 tablet by mouth tid for hypertension 2013 HYDRALAZINE HCL 80672273114 No Longer Active Robbie Busby MD Active VIIBRYD 40 MG ORAL TABLET take 1 tab po qday for depression. 2014 VILAZODONE HCL 37823998479 No Longer Active Robbie Busby MD Active TERBINAFINE HCL 250 MG ORAL TABLET 1 tab po qday for foot infection TERBINAFINE HCL 80575077887 No Longer Active Robbie Busby MD Active GABAPENTIN 300 MG ORAL CAPSULE 1 po q hs for nerve pain GABAPENTIN 78956173136 Active Robbie Busby MD Active CHERATUSSIN AC 100-10 MG/5ML ORAL SOLUTION 7.5 mL PO q 4-6 hrs PRN cough 2014 GUAIFENESIN-CODEINE 12724859722 No Longer Active Robbie Busby MD Active AZITHROMYCIN 250 MG ORAL TABLET 2 tablets PO today---then, 1 tablet PO daily x 4 more days (and 1 optional refill) AZITHROMYCIN 05675125988 No Longer Active Robbie Busby MD Active NORVASC 10 MG ORAL TABLET 1 tablet by mouth daily AMLODIPINE BESYLATE 40251697542 No Longer Active Alex ALVAREZ Active IMDUR 60 MG ORAL TABLET EXTENDED RELEASE 24 HOUR take 1 tab po qday for blood pressure ISOSORBIDE MONONITRATE 34659893766 Active Robbie Busby MD Active ISOSORBIDE DINITRATE 30 MG ORAL TABLET Take one by mouth daily ISOSORBIDE DINITRATE 70644716881 No Longer Active Robbie Busby MD Active VIIBRYD 40 MG ORAL TABLET 1 TA B PO DAILY VILAZODONE HCL 46380780870 Active Robbie Busby MD Active ZITHROMAX 250 MG ORAL TABLET 2 po today, then 1 po q days 2-5 AZITHROMYCIN 45984963874 No Longer Active Robbie Busby MD Active [id number]-[id number]-3 0.3 MG/24HR TRANSDERMAL PATCH WEEKLY apply 2 patches q week for HTN CLONIDINE HCL 83950693131 Active Robbie Busby MD Active DOXAZOSIN MESYLATE 4 MG ORAL TABLET Take one by mouth daily DOXAZOSIN MESYLATE 08806219273 Active Robbie Busby MD Active TOPROL XL 200 MG ORAL TABLET EXTENDED RELEASE 24 HOUR Take one by mouth daily METOPROLOL SUCCINATE 92440756895 Active Robbie Busby MD Active VENLAFAXINE HCL ER 150 MG ORAL TABLET EXTENDED RELEASE 24 HOUR Take one by mouth daily VENLAFAXINE HCL 45608482350 Active Rbobie Busby MD Active LIPITOR 40 MG ORAL TABLET Take one by mouth daily ATORVASTATIN CALCIUM 66705716610 Active Robbie Busby MD Active ISOSORBIDE DINITRATE 30 MG ORAL TABLET Take one by mouth daily ISOSORBIDE DINITRATE 30 MG ORAL TABLET 762096 ISOSORBIDE DINITRATE Inactive NORVASC 10 MG ORAL TABLET 1 tablet by mouth daily NORVASC 10 MG ORAL TABLET 673797 AMLODIPINE BESYLATE Inactive AZITHROMYCIN 250 MG ORAL TABLET 2 tablets PO today---then, 1 tablet PO daily x 4 more days (and 1 optional refill) AZITHROMYCIN 250 MG ORAL TABLET 571982 AZITHROMYCIN Inactive CHERATUSSIN AC 100-10 MG/5ML ORAL SOLUTION 7.5 mL PO q 4-6 hrs PRN cough 2014 CHERATUSSIN AC 100-10 MG/5ML ORAL SOLUTION 318423 GUAIFENESIN-CODEINE Inactive VIIBRYD 40 MG ORAL TABLET take 1 tab po qday for depression. 2014 VIIBRYD 40 MG ORAL TABLET VILAZODONE HCL Inactive HYDRALAZINE HCL 25 MG ORAL TABLET 1 tablet by mouth tid for hypertension 2013 HYDRALAZINE HCL 25 MG ORAL TABLET 018140 HYDRALAZINE HCL Inactive SPIRONOLACTONE 50 MG ORAL TABLET 1 tablet by mouth twice a day SPIRONOLACTONE 50 MG ORAL TABLET 095639 SPIRONOLACTONE Inactive FENOFIBRATE 145 MG ORAL TABLET Take one by mouth daily FENOFIBRATE 145 MG ORAL TABLET 477051 FENOFIBRATE Inactive PROTONIX 40 MG INTRAVENOUS SOLUTION RECONSTITUTED 1 po qday for acid reflux PROTONIX 40 MG INTRAVENOUS SOLUTION RECONSTITUTED 503697 PANTOPRAZOLE SODIUM Inactive CEFDINIR 300 MG ORAL CAPSULE Take 1 cap po bid x 10 days CEFDINIR 300 MG ORAL CAPSULE 607480 CEFDINIR Inactive PREDNISONE 20 MG ORAL TABLET 1 tablet twice daily for 2 days, then 1 tablet once daily for 2 days PREDNISONE 20 MG ORAL TABLET 305833 PREDNISONE Inactive NYSTATIN 251080 UNIT/ML MOUTH/THROAT SUSPENSION 5mL po QID x 10 days NYSTATIN 404210 UNIT/ML MOUTH/THROAT SUSPENSION 606265 NYSTATIN Inactive BETADINE 10 % EXTERNAL SOLUTION 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 07/29 BETADINE 10 % EXTERNAL SOLUTION 3287984 POVIDONE-IODINE Inactive TRILEPTAL 150 MG ORAL TABLET 1 TAB PO Q HS TRILEPTAL 150 MG ORAL TABLET 384920 OXCARBAZEPINE Inactive LAMISIL 125 MG ORAL PACKET 1 TAB PO DAILY LAMISIL 125 MG ORAL PACKET TERBINAFINE HCL Inactive HYDROCHLOROTHIAZIDE TABLET Take one by mouth daily HYDROCHLOROTHIAZIDE TABLET HYDROCHLOROTHIAZIDE TABS Inactive HYDROCODONE-ACETAMINOPHEN 5-325 MG ORAL TABLET 1 tab by mouth BID prn back pain HYDROCODONE-ACETAMINOPHEN 5-325 MG ORAL TABLET 298671 HYDROCODONE-ACETAMINOPHEN Inactive HYDRALAZINE HCL 50 MG ORAL TABLET TWO BY MOUTH THREE TIMES DAILY HYDRALAZINE HCL 50 MG ORAL TABLET 412829 HYDRALAZINE HCL Inactive LEVAQUIN 500 MG ORAL TABLET 1 tablet by mouth daily for 7 days LEVAQUIN 500 MG ORAL TABLET 797988 LEVOFLOXACIN Inactive SPIRONOLACTONE 25 MG ORAL TABLET 4 tablets by mouth daily SPIRONOLACTONE 25 MG ORAL TABLET 256009 SPIRONOLACTONE Inactive MECLIZINE HCL 25 MG ORAL TABLET one 4 times a day as needed for dizziness MECLIZINE HCL 25 MG ORAL TABLET 397651 MECLIZINE HCL Inactive CLONIDINE HCL 0.2 MG ORAL TABLET 1 TAB BY MOUTH EVERY 8 HOURS CLONIDINE HCL 0.2 MG ORAL TABLET 690347 CLONIDINE HCL Inactive CYCLOBENZAPRINE HCL 10 MG ORAL TABLET 1 tablet by mouth three times daily as needed for muscle spasm/pain for 10 days CYCLOBENZAPRINE HCL 10 MG ORAL TABLET 693443 CYCLOBENZAPRINE HCL Inactive VITAMIN D3 07415 UNIT ORAL CAPSULE 2 CAPS PO WEEKLY VITAMIN D3 43549 UNIT ORAL CAPSULE CHOLECALCIFEROL Inactive FIORICET 50-300-40 MG ORAL CAPSULE take 1 tab po qday prn migraines. FIORICET 50-300-40 MG ORAL CAPSULE 896354 BUTALBITAL-APAP- CAFFEINE Inactive FLONASE 50 MCG/ACT NASAL SUSPENSION 1 spray each nostril twice daily for allergies and runny nose FLONASE 50 MCG/ACT NASAL SUSPENSION 0540362 FLUTICASONE PROPIONATE Inactive LORATADINE 10 MG ORAL TABLET 1 tablet by mouth daily for congestion and allergies. LORATADINE 10 MG ORAL TABLET 865877 LORATADINE Inactive NITROSTAT 0.4 MG SUBLINGUAL TABLET SUBLINGUAL PRN NITROSTAT 0.4 MG SUBLINGUAL TABLET SUBLINGUAL 672622 NITROGLYCERIN Inactive GUAIFENESIN ER 600 MG ORAL TABLET EXTENDED RELEASE 12 HOUR 1 tab po q am 2016 GUAIFENESIN ER 600 MG ORAL TABLET EXTENDED RELEASE 12 HOUR GUAIFENESIN Inactive CYCLOBENZAPRINE HCL 10 MG ORAL TABLET 1 po TID PRN muscle spasm/pain for 10 days CYCLOBENZAPRINE HCL 10 MG ORAL TABLET 921676 CYCLOBENZAPRINE HCL Inactive TOPIRAMATE 50 MG ORAL TABLET take 1 tab po BID for migraines. TOPIRAMATE 50 MG ORAL TABLET 961029 TOPIRAMATE Inactive ZITHROMAX 250 MG ORAL TABLET 2 po today, then 1 po q days 2-5 ZITHROMAX 250 MG ORAL TABLET 778980 AZITHROMYCIN Inactive TERBINAFINE HCL 250 MG ORAL TABLET 1 tab po qday for foot infection TERBINAFINE HCL 250 MG ORAL TABLET 634403 TERBINAFINE HCL Inactive KEFLEX 500 MG ORAL CAPSULE 1 po TID x 10 days KEFLEX 500 MG ORAL CAPSULE 485210 CEPHALEXIN Inactive BACTRIM DS 800-160 MG ORAL TABLET 1 tab by mouth twice daily 2015 BACTRIM DS 800-160 MG ORAL TABLET 458957 TRIMETHOPRIM- SULFAMETHOXAZOLE Inactive PREDNISONE 20 MG ORAL TABLET take 3 tabs daily for 3 days, 2 tabs daily for 3 days, 1 tab daily for 3 days, 1/2 tab daily for 4 days PREDNISONE 20 MG ORAL TABLET 162677 PREDNISONE Inactive Advance Directives Directive Description Start [...] AUTO - Chemistry sodium, serum 142 mmol/L 951-015 6203/07/17 carbon dioxide, venous blood 28.2 mmol/L 21.0-32.0 [...] % 11.0-15.0 platelet count 185 THOUSAND/UL 10*3/mm3 931-653 5230/04/14 mean platelet volume 10.9 fL 7.5-12.5 Lab Report: HGBA1C, Basic Metabolic Panel - Chemistry hemoglobin A1C, blood, as % of total hemoglobin 6.9 % 4.3-6.0 sodium, serum 139 mmol/L 090-819 6887/01/04 potassium, serum 3.9 mmol/L 3.5-5.2 chloride, serum 103 mmol/L 98-107 carbon dioxide, venous blood 26.9 mmol/L 21.0-32.0 blood glucose 106 mg/dL 65-110 calcium, serum 9.0 mg/dL 8.5-10.1 urea nitrogen, blood 20 mg/dL 7-18 creatinine, serum 1.46 mg/dL 0.60-1.30 Lab Report: LIPID PANEL, TSH/899, T4, FREE/866 - Chemistry cholesterol, serum 220 mg/dL 027-561 3708/04/14 HDL cholesterol, serum 30 mg/dL > OR=40 [...] 1.80 ng/mL 0.00-4.00 Lab Report: VITAMIN D, 25-HYDROXY/41446 - Chemistry vitamin D 25-hydroxy, serum 25 ng/mL 30-100 Office Visit: Confusion, dizziness after fall - Basic LDL target level 130 mg/dL Office Visit: Confusion, dizziness after fall - Chemistry HDL cholesterol, serum, target level 40 mg/dL triglyceride, target level 150 mg/dL cholesterol, target level 200 mg/dL Encounters Code Encounter Date Provider Facility CPT-18241 Level 4 Est. Patient 15:23:44 DIGITAL ADVERTISING SPECIALIST Desmond Diaz DO [facility] CPT-78552 Level 3 Est. Patient 15:40:49 CDT Robbie Busby MD [facility] CPT-08726 Level 4 Est. Patient 15:18:19 CDT Robbie Busby MD [facility] CPT-10648 Level 3 Est. Patient 09:00:37 CDT Rober Rodríguez [facility] CPT-23837 Level 3 Est. Patient 16:07:10 CDT Robbie Busby MD [facility] CPT-60365 Level 4 Est. Patient 11:56:16 CDT Erin Garsia [facility] CPT-90573 Level 3 Est. Patient 17:48:02 CDT Robbie Busby MD [facility] CPT-51293 Level 4 Est. Patient 12:00:49 DIGITAL ADVERTISING SPECIALIST Rober Rodríguez [facility] CPT-19742 Level 3 Est. Patient 09:16:37 CDT Robbie Busby MD [facility] CPT-09212 Level 3 Est. Patient 19:38:43 CDT Robbie Busby MD [facility] CPT-24341 Level 3 Est. Patient 11:53:38 CDT Robbie Busby MD [facility] CPT-58877 Level 4 Est. Patient 12:52:22 CDT Rober Rodríguez [facility] CPT-21157 Level 4 Est. Patient 22:55:17 CDT Robbie Busby MD [facility] CPT-59961 Level 3 Est. Patient 12:38:24 CDT Desmond Diaz DO [facility] CPT-41790 Level 4 Est. Patient 11:25:03 DIGITAL ADVERTISING SPECIALIST Robbie Busby MD [facility] CPT-00589 Level 4 Est. Patient 14:50:10 CDT Robbie Busby MD [facility] CPT-42944 Level 4 Est. Patient 23:30:43 CDT Robbie Busby MD [facility] CPT-86117 Level 4 Est. Patient 10:30:43 CDT Robbie Busby MD [facility] CPT-03836 Level 3 Est. Patient 17:08:12 CDT Alex Shaw [facility] CPT-90346 Level 4 Est. Patient 17:51:38 CDT Robbie Busby MD [facility] CPT-24608 Level 4 Est. Patient 14:00:21 CDT Robbie Busby MD [facility] CPT-41116 Level 4 Est. Patient 12:46:48 CDT Robbie Busby MD [facility] CPT-66192 Level 4 Est. Patient 13:34:33 CDT Robbie Busby MD [facility] CPT-86127 Level 4 Est. Patient 16:58:28 CDT Robbie Busby MD [facility] CPT-02751 Level 3 Est. Patient 19:36:53 CDT Alex Shaw [facility] CPT-58509 Level 3 Est. Patient 12:58:15 CDT Robbie Busby MD [facility] Procedures Code Procedure Name Date Entry Date Standard Description CPT-J1071 Depo Testosterone 200mg 15:33:58 DIGITAL ADVERTISING SPECIALIST CPT-88922 Abx/Therapy Injection 15:33:58 DIGITAL ADVERTISING SPECIALIST CPT-J1071 Depo Testosterone 200mg 09:38:36 DIGITAL ADVERTISING SPECIALIST CPT-41690 Abx/Therapy Injection 09:38:36 DIGITAL ADVERTISING SPECIALIST CPT-J1071 Depo Testosterone 200mg 10:22:56 DIGITAL ADVERTISING SPECIALIST CPT-41235 Abx/Therapy Injection 10:22:56 DIGITAL ADVERTISING SPECIALIST CPT-J1071 Depo Testosterone 200mg 15:40:23 CDT CPT-66259 Abx/Therapy Injection 15:40:23 CDT CPT-J1071 Depo Testosterone 200mg 14:20:43 CDT CPT-79263 Abx/Therapy Injection 14:20:43 CDT CPT-J1071 Depo Testosterone 200mg 14:17:22 CDT CPT-93847 Abx/Therapy Injection 14:17:22 CDT CPT-J1071 Depo Testosterone 200mg 09:03:53 CDT CPT-09866 Abx/Therapy Injection 09:03:53 CDT CPT-G0439 [facility] Annual Wellness Exam 16:47:44 CDT CPT-J1071 Depo Testosterone 200mg 09:06:28 CDT CPT-02587 Abx/Therapy Injection 09:06:28 CDT CPT-J1071 Depo Testosterone 200mg 08:30:01 CDT CPT-31057 Abx/Therapy Injection 08:30:01 CDT CPT-J1071 Depo Testosterone 200mg 08:24:00 CDT CPT-54183 Abx/Therapy Injection 08:24:00 CDT CPT-44623 Venipuncture Draw Fee 14:39:06 CDT CPT-18873 Ribs unilateral 2V - XRAY USE ONLY 12:10:11 CDT CPT-90274 First Vx - Ix admin for Medicare patients 16:32:53 CDT CPT-20840 Boostrix Intramuscular Suspension 5-2.5-18.5 16:32:53 CDT CPT-84634 TB Skin Test 11:42:28 CDT CPT-71774 Tdap 7yrs or > 11:42:28 CDT CPT-J0696 Rocephin 1000 mg (Ceftriaxone) 17:43:43 DIGITAL ADVERTISING SPECIALIST CPT-J1040 Depo Medrol 80 mg (Methyl Prednisolone Acetate) 17:43: 43 DIGITAL ADVERTISING SPECIALIST CPT-J1100 Decadron 8mg (Dexamethasone) 17:43:42 DIGITAL ADVERTISING SPECIALIST CPT-47601 Abx/Therapy Injection 17:43:42 DIGITAL ADVERTISING SPECIALIST CPT-99813 Abx/Therapy Injection 17:43:42 DIGITAL ADVERTISING SPECIALIST CPT-J1040 Depo Medrol 80 mg (Methyl Prednisolone Acetate) 09:43: 34 DIGITAL ADVERTISING SPECIALIST CPT-J1100 Decadron 8mg (Dexamethasone) 09:43:34 DIGITAL ADVERTISING SPECIALIST CPT-J0696 Rocephin 1gm Inj Solr 09:43:34 DIGITAL ADVERTISING SPECIALIST CPT-73400 Wound Culture - LAB USE ONLY 14:00:21 CDT CPT-I/D I/D Abscess 09:16:37 CDT CPT-75557 Venipuncture Draw Fee 15:20:23 CDT CPT-29693 Microalbumin - LAB USE ONLY 16:02:19 CDT CPT-13726 CBC - LAB USE ONLY 16:02:19 CDT CPT-17058 Venipuncture Draw Fee 16:02:19 CDT CPT-G0438 Initial Annual Wellness Exam 08:10:28 CDT CPT-43192 Venipuncture Draw Fee 13:07:17 CDT CPT-G0008 Administration of Influenza Virus Vaccine 16:09:59 CDT CPT-00405 Fluzone Quadrivalent Intramuscular Suspension 0.5 ML 16: 09:59 CDT CPT-79938 Spec Collection and Handling Fee 15:05:50 CDT
--- OUTSIDE RECORDS SUMMARY | 2018-04-18 11:50 | XMS REPORT | Clinical Summary ---
Author Author Admin, Nicolas Organization [employer] Address Unknown Phone Unavailable Allergies, Adverse Reactions, [...] NDC Status Provider Patient Instruction VITAMIN D3 19360 UNIT CAPS 2 CAPS PO WEEKLY CHOLECALCIFEROL 35270583246 Active Vanessa August Active CEFDINIR 300 MG ORAL CAPS Take 1 cap po bid x 10 days CEFDINIR 63307153742 Active Jackie Junior MA Active PREDNISONE 20 MG TAB 1 tablet twice daily for 2 days, then 1 tablet once daily for 2 days PREDNISONE 06252388483 Active Desmond Diaz DO Active NEXIUM 40 MG CPDR 1 cap by mouth daily ESOMEPRAZOLE MAGNESIUM 75717545915 Active Gali Negro Active PROTONIX 40 MG SOLR 1 po qday for acid reflux PANTOPRAZOLE SODIUM 78807222306 No Longer Active Galileonila Negro Active BETADINE 10 % EXT SOLN 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 POVIDONE-IODINE 87306450667 Active Robbie Busby MD Active KEFLEX 500 MG CAP 1 po TID x 10 days CEPHALEXIN 38602034331 No Longer Active Robbie Busby MD Active FIORICET 50-300-40 MG ORAL CAPS take 1 tab po qday prn migraines. [id number] 99174879558 Active Robbie Busby MD Active TOPIRAMATE 50 MG ORAL TABS take 1 tab po BID for migraines. TOPIRAMATE 08646583572 Active Robbie Busby MD Active HYDRALAZINE HCL 50 MG ORAL TABS TWO BY MOUTH THREE TIMES DAILY HYDRALAZINE HCL 31667854830 Active Robbie Busby MD Active MECLIZINE HCL 25 MG TAB one 4 times a day as needed for dizziness MECLIZINE HCL 14045097608 Active Robbie Busby MD Active TRILEPTAL 150 MG ORAL TABS 1 TAB PO Q HS OXCARBAZEPINE 11474509265 Active Robbie Busby MD Active TEMAZEPAM 15 MG ORAL CAPS 1 TAB PO Q HS TEMAZEPAM 57978793266 Active Robbie Busby MD Active ALPRAZOLAM 2 MG ORAL TABS 1 TAB PO BID ALPRAZOLAM 26143221835 Active Robbie Busby MD Active FENOFIBRATE 145 MG TABS Take one by mouth daily FENOFIBRATE 51853692686 No Longer Active Robbie Busby MD Active LAMISIL 125 MG ORAL PACK 1 TAB PO DAILY TERBINAFINE HCL 33816463067 Active Robbie Busby MD Active SPIRONOLACTONE 50 MG TABS 1 tablet by mouth twice a day SPIRONOLACTONE 77586768139 No Longer Active Robbie Busby MD Active HYDRALAZINE HCL 25 MG TABS 1 tablet by mouth tid for hypertension HYDRALAZINE HCL 62365972852 No Longer Active Robbie Busby MD Active VIIBRYD 40 MG TABS take 1 tab po qday for depression. VILAZODONE HCL 44016131204 No Longer Active Robbie Busby MD Active TERBINAFINE HCL 250 MG TABS 1 tab po qday for foot infection 2014 TERBINAFINE HCL 86319499422 No Longer Active Robbie Busby MD Active GABAPENTIN 300 MG CAPS 1 po q hs for nerve pain GABAPENTIN 96977533322 Active Robbie Busby MD Active FLONASE 50 MCG/ACT SUSP 1 spray each nostril twice daily for allergies and runny nose FLUTICASONE PROPIONATE 30371173537 Active Robbie Busby MD Active CHERATUSSIN AC 100-10 MG/5ML ORAL SOLN 7.5 mL PO q 4-6 hrs PRN cough GUAIFENESIN-CODEINE 80619197021 No Longer Active Robbie Busby MD Active AZITHROMYCIN 250 MG ORAL TABS 2 tablets PO today---then, 1 tablet PO daily x 4 more days (and 1 optional refill) AZITHROMYCIN 33138742134 No Longer Active Robbie Busby MD Active CLONIDINE HCL 0.2 MG ORAL TABS 1 TAB BY MOUTH EVERY 8 HOURS CLONIDINE HCL 74134373890 Active Robbie Busby MD Active HYDROCHLOROTHIAZIDE TABS Take one by mouth daily HYDROCHLOROTHIAZIDE TABS 45701167569 Active Alex ALVAREZ Active NORVASC 10 MG TAB 1 tablet by mouth daily AMLODIPINE BESYLATE 92906067902 No Longer Active Alex ALVAREZ Active IMDUR 60 MG TAB CR take 1 tab po qday for blood pressure ISOSORBIDE MONONITRATE Active Robbie Busby MD Active ISOSORBIDE DINITRATE 30 MG TABS Take one by mouth daily ISOSORBIDE DINITRATE 25972593691 No Longer Active Robbie Busby MD Active VIIBRYD 40 MG TABS 1 TA B PO DAILY VILAZODONE HCL 01967253072 Active Erin Garsia APRN Active LORATADINE 10 MG TABS 1 tablet by mouth daily for congestion and allergies. LORATADINE 55749603949 Active Robbie Busby MD Active ZITHROMAX 250 MG TAB 2 po today, then 1 po q days 2-5 AZITHROMYCIN 44788468981 No Longer Active Robbie Busby MD Active HYDROCODONE-ACETAMINOPHEN 5-325 MG TABS 1 tab by mouth BID prn back pain 2013 HYDROCODONE-ACETAMINOPHEN 48084108117 Active Robbie Busby MD Active GHYOEVCF-QYC-0 0.3 MG/24HR PTWK apply 2 patches q week for HTN CLONIDINE HCL 92887308393 Active Robbie Busby MD Active NITROSTAT 0.4 MG SUBL PRN NITROGLYCERIN 78812245899 Active Robbie Busby MD Active DOXAZOSIN MESYLATE 4 MG TABS Take one by mouth daily DOXAZOSIN MESYLATE 01113195391 Active Robbie Busby MD Active TOPROL XL 200 MG [id number] Take one by mouth daily METOPROLOL SUCCINATE 49856776797 Active Robbie Busby MD Active VENLAFAXINE HCL ER 150 MG [id number] Take one by mouth daily VENLAFAXINE HCL 92224825265 Active Robbie Busby MD Active LIPITOR 40 MG TABS Take one by mouth daily ATORVASTATIN CALCIUM 20008692581 Active Robbie Busby MD Active ISOSORBIDE DINITRATE 30 MG TABS Take one by mouth daily ISOSORBIDE DINITRATE 30 MG TABS 825572 ISOSORBIDE DINITRATE Inactive NORVASC 10 MG TAB 1 tablet by mouth daily NORVASC 10 MG TAB 387409 AMLODIPINE BESYLATE Inactive AZITHROMYCIN 250 MG ORAL TABS 2 tablets PO today---then, 1 tablet PO daily x 4 more days (and 1 optional refill) AZITHROMYCIN 250 MG ORAL TABS 9877224 AZITHROMYCIN Inactive CHERATUSSIN AC 100-10 MG/5ML ORAL SOLN 7.5 mL PO q 4-6 hrs PRN cough CHERATUSSIN AC 100-10 MG/5ML ORAL SOLN 625644 GUAIFENESIN- CODEINE Inactive VIIBRYD 40 MG TABS take 1 tab po qday for depression. VIIBRYD 40 MG TABS VILAZODONE HCL Inactive HYDRALAZINE HCL 25 MG TABS 1 tablet by mouth tid for hypertension HYDRALAZINE HCL 25 MG TABS 068720 HYDRALAZINE HCL Inactive SPIRONOLACTONE 50 MG TABS 1 tablet by mouth twice a day SPIRONOLACTONE 50 MG TABS 964096 SPIRONOLACTONE Inactive FENOFIBRATE 145 MG TABS Take one by mouth daily FENOFIBRATE 145 MG TABS 708540 FENOFIBRATE Inactive PROTONIX 40 MG SOLR 1 po qday for acid reflux PROTONIX 40 MG SOLR 550062 PANTOPRAZOLE SODIUM Inactive ZITHROMAX 250 MG TAB 2 po today, then 1 po q days 2-5 ZITHROMAX 250 MG TAB 1975023 AZITHROMYCIN Inactive TERBINAFINE HCL 250 MG TABS 1 tab po qday for foot infection 2014 TERBINAFINE HCL 250 MG TABS 556746 TERBINAFINE HCL Inactive KEFLEX 500 MG CAP 1 po TID x 10 days KEFLEX 500 MG CAP 075734 CEPHALEXIN Inactive Vital Signs Date Name Value [...] Acid - Chemistry sodium, serum 139 mmol/L 583-910 3025/04/22 carbon dioxide, venous blood 29.4 mmol/L 21.0-32.0 [...] PANEL - Chemistry cholesterol, serum 211 mg/dL 275-805 9599/08/31 triglyceride, serum, fasting 429 mg/dL 30-200 HDL [...] to Follow Negative Lab Report: VITAMIN D, 25-HYDROXY/52416 - Chemistry vitamin D 25-hydroxy, serum 23 ng/mL 30-100 Encounters Code Encounter Date Provider Facility CPT-14603 Level 3 Est. Patient 12:38:24 CDT Desmond Diaz DO [facility] CPT-93560 Level 4 Est. Patient 11:25:03 PSYCHOLOGIST CLINICAL Robbie Busby MD [facility] CPT-82440 Level 4 Est. Patient 14:50:10 CDT Robbie Busby MD [facility] CPT-91283 Level 4 Est. Patient 23:30:43 CDT Robbie Busby MD [facility] CPT-58316 Level 4 Est. Patient 10:30:43 CDT Robbie Busby MD [facility] CPT-12339 Level 3 Est. Patient 17:08:12 CDT Alex ALVAREZ [facility] CPT-25099 Level 4 Est. Patient 17:51:38 CDT Robbie Busby MD [facility] CPT-59751 Level 4 Est. Patient 14:00:21 CDT Robbie Busby MD [facility] CPT-42861 Level 4 Est. Patient 12:46:48 CDT Robbie Busby MD [facility] CPT-55201 Level 4 Est. Patient 13:34:33 CDT Robbie Busby MD [facility] CPT-73511 Level 4 Est. Patient 16:58:28 CDT Robbie Busby MD [facility] CPT-41471 Level 3 Est. Patient 19:36:53 CDT Alex ALVAREZ [facility] CPT-49652 Level 3 Est. Patient 12:58:15 CDT Robbie Busby MD [facility] Procedures Code Procedure Name Date Entry Date Standard Description CPT-84780 Venipuncture Draw Fee 13:07:17 CDT CPT-G0008 Administration of Influenza Virus Vaccine 16:09:59 CDT CPT-77596 Fluzone Quadrivalent Intramuscular Suspension 0.5 ML 16: 09:59 CDT CPT-84148 Spec Collection and Handling Fee 15:05:50 CDT
--- OUTSIDE RECORDS SUMMARY | 2018-04-18 11:51 | XMS REPORT | Clinical Summary ---
Author Author Admin, AKUA Organization [employer] Address Unknown Phone Unavailable Allergies, Adverse [...] 1 tab by mouth twice daily TRIMETHOPRIM-SULFAMETHOXAZOLE 10889855465 No Longer Active Robbie Busby MD Active SPIRONOLACTONE 25 MG TAB 4 tablets by mouth daily SPIRONOLACTONE 92180437697 Active Robbie Busby MD Active HYDRALAZINE HCL 50 MG ORAL TABS TWO BY MOUTH THREE TIMES DAILY HYDRALAZINE HCL 60426538075 No Longer Active Jillina Frazell TIME STUDY TECHNOLOGIST Active HYDROCODONE-ACETAMINOPHEN 5-325 MG TABS 1 tab by mouth BID prn back pain 2013 HYDROCODONE-ACETAMINOPHEN 81205735130 No Longer Active Jillina Frazell TIME STUDY TECHNOLOGIST Active HYDROCHLOROTHIAZIDE TABS Take one by mouth daily HYDROCHLOROTHIAZIDE TABS 21953596571 No Longer Active Jillina Frazell TIME STUDY TECHNOLOGIST Active LAMISIL 125 MG ORAL PACK 1 TAB PO DAILY TERBINAFINE HCL 18528579086 No Longer Active Jillina Frazell TIME STUDY TECHNOLOGIST Active TRILEPTAL 150 MG ORAL TABS 1 TAB PO Q HS OXCARBAZEPINE 29068697293 No Longer Active Jillina Frazell TIME STUDY TECHNOLOGIST Active BETADINE 10 % EXT SOLN 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 POVIDONE-IODINE 95229147908 No Longer Active Jillina Frazell TIME STUDY TECHNOLOGIST Active NYSTATIN 178646 UNIT/ML M/T SUSP 5mL po QID x 10 days NYSTATIN 06715240010 No Longer Active Erin Garsia APRN Active PREDNISONE 20 MG TAB 1 tablet twice daily for 2 days, then 1 tablet once daily for 2 days PREDNISONE 58053877431 No Longer Active Robbie Busby MD Active CEFDINIR 300 MG ORAL CAPS Take 1 cap po bid x 10 days CEFDINIR 20695488741 No Longer Active Robbie Busby MD Active AMLODIPINE BESYLATE 10 MG TABS 1 tablet by mouth daily AMLODIPINE BESYLATE 12286250725 Active Robbie Busby MD Active CARVEDILOL 25 MG TABS 1 & 1/2 TAB po BID CARVEDILOL 89631419010 Active Robbie Busby MD Active VITAMIN D3 06330 UNIT CAPS 2 CAPS PO WEEKLY CHOLECALCIFEROL 77990387612 Active Erin Garsia APRN Active NEXIUM 40 MG CPDR 1 cap by mouth daily ESOMEPRAZOLE MAGNESIUM 53422715959 Active Gali Negro Active PROTONIX 40 MG SOLR 1 po qday for acid reflux PANTOPRAZOLE SODIUM 46579999204 No Longer Active Galileonila Torresjuan carlos Active KEFLEX 500 MG CAP 1 po TID x 10 days CEPHALEXIN 63337982655 No Longer Active Robbie Busby MD Active FIORICET 50-300-40 MG ORAL CAPS take 1 tab po qday prn migraines. [id number] 13027444071 Active Robbie Busby MD Active TOPIRAMATE 50 MG ORAL TABS take 1 tab po BID for migraines. TOPIRAMATE 31613156109 Active Robbie Busby MD Active MECLIZINE HCL 25 MG TAB one 4 times a day as needed for dizziness MECLIZINE HCL 05222362452 Active Robbie Busby MD Active TEMAZEPAM 15 MG ORAL CAPS 1 TAB PO Q HS TEMAZEPAM 13040437480 Active Robbie Busby MD Active ALPRAZOLAM 2 MG ORAL TABS 1 TAB PO BID ALPRAZOLAM 59849094811 Active Robbie Busby MD Active FENOFIBRATE 145 MG TABS Take one by mouth daily FENOFIBRATE 97760475411 No Longer Active Robbie Busby MD Active SPIRONOLACTONE 50 MG TABS 1 tablet by mouth twice a day SPIRONOLACTONE 05757348208 No Longer Active Robbie Busby MD Active HYDRALAZINE HCL 25 MG TABS 1 tablet by mouth tid for hypertension HYDRALAZINE HCL 06677379814 No Longer Active Robbie Busby MD Active VIIBRYD 40 MG TABS take 1 tab po qday for depression. VILAZODONE HCL 04134468283 No Longer Active Robbie Busby MD Active TERBINAFINE HCL 250 MG TABS 1 tab po qday for foot infection 2014 TERBINAFINE HCL 97878985715 No Longer Active Robbie Busby MD Active GABAPENTIN 300 MG CAPS 1 po q hs for nerve pain GABAPENTIN 83991689738 Active Robbie Busby MD Active FLONASE 50 MCG/ACT SUSP 1 spray each nostril twice daily for allergies and runny nose FLUTICASONE PROPIONATE 39374260733 Active Robbie Busby MD Active CHERATUSSIN AC 100-10 MG/5ML ORAL SOLN 7.5 mL PO q 4-6 hrs PRN cough GUAIFENESIN-CODEINE 34685732263 No Longer Active Robbie Busby MD Active AZITHROMYCIN 250 MG ORAL TABS 2 tablets PO today---then, 1 tablet PO daily x 4 more days (and 1 optional refill) AZITHROMYCIN 21474752901 No Longer Active Robbie Busby MD Active CLONIDINE HCL 0.2 MG ORAL TABS 1 TAB BY MOUTH EVERY 8 HOURS CLONIDINE HCL 52415466320 Active Robbie Busby MD Active NORVASC 10 MG TAB 1 tablet by mouth daily AMLODIPINE BESYLATE 43681250817 No Longer Active Alex ALVAREZ Active IMDUR 60 MG TAB CR take 1 tab po qday for blood pressure ISOSORBIDE MONONITRATE Active Robbie Busby MD Active ISOSORBIDE DINITRATE 30 MG TABS Take one by mouth daily ISOSORBIDE DINITRATE 30421620662 No Longer Active Robbie Busby MD Active VIIBRYD 40 MG TABS 1 TA B PO DAILY VILAZODONE HCL 97900534957 Active Robbie Busby MD Active LORATADINE 10 MG TABS 1 tablet by mouth daily for congestion and allergies. LORATADINE 36214086263 Active Robbie Busby MD Active ZITHROMAX 250 MG TAB 2 po today, then 1 po q days 2-5 AZITHROMYCIN 65313673094 No Longer Active Robbie Busby MD Active CACTWHCC-DNU-3 0.3 MG/24HR PTWK apply 2 patches q week for HTN CLONIDINE HCL 81058526695 Active Robbie Busby MD Active NITROSTAT 0.4 MG SUBL PRN NITROGLYCERIN 25524625109 Active Robbie Busby MD Active DOXAZOSIN MESYLATE 4 MG TABS Take one by mouth daily DOXAZOSIN MESYLATE 32886915495 Active Robbie Busby MD Active TOPROL XL 200 MG [id number] Take one by mouth daily METOPROLOL SUCCINATE 73336808309 Active Robbie Busby MD Active VENLAFAXINE HCL ER 150 MG [id number] Take one by mouth daily VENLAFAXINE HCL 35985187354 Active Robbie Busby MD Active LIPITOR 40 MG TABS Take one by mouth daily ATORVASTATIN CALCIUM 89719584058 Active Robbie Busby MD Active ISOSORBIDE DINITRATE 30 MG TABS Take one by mouth daily ISOSORBIDE DINITRATE 30 MG TABS 151316 ISOSORBIDE DINITRATE Inactive NORVASC 10 MG TAB 1 tablet by mouth daily NORVASC 10 MG TAB 323475 AMLODIPINE BESYLATE Inactive AZITHROMYCIN 250 MG ORAL TABS 2 tablets PO today---then, 1 tablet PO daily x 4 more days (and 1 optional refill) AZITHROMYCIN 250 MG ORAL TABS 9190276 AZITHROMYCIN Inactive CHERATUSSIN AC 100-10 MG/5ML ORAL SOLN 7.5 mL PO q 4-6 hrs PRN cough CHERATUSSIN AC 100-10 MG/5ML ORAL SOLN 995114 GUAIFENESIN- CODEINE Inactive VIIBRYD 40 MG TABS take 1 tab po qday for depression. VIIBRYD 40 MG TABS VILAZODONE HCL Inactive HYDRALAZINE HCL 25 MG TABS 1 tablet by mouth tid for hypertension HYDRALAZINE HCL 25 MG TABS 855957 HYDRALAZINE HCL Inactive SPIRONOLACTONE 50 MG TABS 1 tablet by mouth twice a day SPIRONOLACTONE 50 MG TABS 946373 SPIRONOLACTONE Inactive FENOFIBRATE 145 MG TABS Take one by mouth daily FENOFIBRATE 145 MG TABS 637076 FENOFIBRATE Inactive PROTONIX 40 MG SOLR 1 po qday for acid reflux PROTONIX 40 MG SOLR 665837 PANTOPRAZOLE SODIUM Inactive CEFDINIR 300 MG ORAL CAPS Take 1 cap po bid x 10 days CEFDINIR 300 MG ORAL CAPS 658415 CEFDINIR Inactive PREDNISONE 20 MG TAB 1 tablet twice daily for 2 days, then 1 tablet once daily for 2 days PREDNISONE 20 MG TAB 793953 PREDNISONE Inactive NYSTATIN 075218 UNIT/ML M/T SUSP 5mL po QID x 10 days NYSTATIN 059747 UNIT/ML M/T SUSP 455467 NYSTATIN Inactive BETADINE 10 % EXT SOLN 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 BETADINE 10 % EXT SOLN 5034300 POVIDONE-IODINE Inactive TRILEPTAL 150 MG ORAL TABS 1 TAB PO Q HS TRILEPTAL 150 MG ORAL TABS 672431 OXCARBAZEPINE Inactive LAMISIL 125 MG ORAL PACK 1 TAB PO DAILY LAMISIL 125 MG ORAL PACK TERBINAFINE HCL Inactive HYDROCHLOROTHIAZIDE TABS Take one by mouth daily HYDROCHLOROTHIAZIDE TABS HYDROCHLOROTHIAZIDE TABS Inactive HYDROCODONE-ACETAMINOPHEN 5-325 MG TABS 1 tab by mouth BID prn back pain 2013 HYDROCODONE-ACETAMINOPHEN 5-325 MG TABS 903774 HYDROCODONE -ACETAMINOPHEN Inactive HYDRALAZINE HCL 50 MG ORAL TABS TWO BY MOUTH THREE TIMES DAILY HYDRALAZINE HCL 50 MG ORAL TABS 271759 HYDRALAZINE HCL Inactive ZITHROMAX 250 MG TAB 2 po today, then 1 po q days 2-5 ZITHROMAX 250 MG TAB 9628720 AZITHROMYCIN Inactive TERBINAFINE HCL 250 MG TABS 1 tab po qday for foot infection 2014 TERBINAFINE HCL 250 MG TABS 669324 TERBINAFINE HCL Inactive KEFLEX 500 MG CAP 1 po TID x 10 days KEFLEX 500 MG CAP 071117 CEPHALEXIN Inactive BACTRIM DS 800-160 MG TAB 1 tab by mouth twice daily BACTRIM DS 800-160 MG TAB 891711 TRIMETHOPRIM-SULFAMETHOXAZOLE Inactive Advance Directives Directive Description Start [...] Acid - Chemistry sodium, serum 139 mmol/L 098-368 1110/04/22 carbon dioxide, venous blood 29.4 mmol/L 21.0-32.0 [...] to Follow Negative Lab Report: VITAMIN D, 25-HYDROXY/44445 - Chemistry vitamin D 25-hydroxy, serum 23 ng/mL 30-100 Encounters Code Encounter Date Provider Facility [facility]-[id number] Level 3 Est. Patient 09:16:37 CDT Robbie Busby MD [facility] CPT-21939 Level 3 Est. Patient 19:38:43 CDT Robbie Busby MD [facility]-13069 Level 3 Est. Patient 11:53:38 CDT Robbie Busby MD [facility]-22546 Level 4 Est. Patient 12:52:22 CDT Rober Rodríguez APRN [facility] CPT-52269 Level 4 Est. Patient 22:55:17 CDT Robbie Busby MD [facility] CPT-16381 Level 3 Est. Patient 12:38:24 CDT Desmond Diaz DO [facility] CPT-90002 Level 4 Est. 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 Patient 14:50:10 CDT Robbie Busby MD [facility] CPT-25554 Level 4 Est. Patient 23:30:43 CDT Robbie Busby MD [facility] CPT-54900 Level 4 Est. Patient 10:30:43 CDT Robbie Busby MD [facility] CPT-66387 Level 3 Est. Patient 17:08:12 CDT Alex ALVAREZ [facility] CPT-34341 Level 4 Est. Patient 17:51:38 CDT Robbie Busby MD [facility] CPT-96745 Level 4 Est. Patient 14:00:21 CDT Robbie Busby MD [facility] CPT-77577 Level 4 Est. Patient 12:46:48 CDT Robbie Busby MD [facility] CPT-74254 Level 4 Est. Patient 13:34:33 CDT Robbie Busby MD [facility] CPT-76192 Level 4 Est. Patient 16:58:28 CDT Robbie Busby MD [facility] CPT-82686 Level 3 Est. Patient 19:36:53 CDT lAex ALVAREZ [facility] CPT-63325 Level 3 Est. Patient 12:58:15 CDT Robbie Busby MD [facility] Procedures Code Procedure Name Date Entry Date Standard Description CPT-92186 Wound Culture - LAB USE ONLY 14:00:21 CDT CPT-I/D I/D Abscess 09:16:37 CDT CPT-98516 Venipuncture Draw Fee 15:20:23 CDT CPT-66587 Microalbumin - LAB USE ONLY 16:02:19 CDT CPT-57177 CBC - LAB USE ONLY 16:02:19 CDT CPT-51185 Venipuncture Draw Fee 16:02:19 CDT CPT-G0438 Initial Annual Wellness Exam 08:10:28 CDT CPT-46311 Venipuncture Draw Fee 13:07:17 CDT CPT-G0008 Administration of Influenza Virus Vaccine 16:09:59 CDT CPT-44960 Fluzone Quadrivalent Intramuscular Suspension 0.5 ML 16: 09:59 CDT CPT-38806 Spec Collection and Handling Fee 15:05:50 CDT
--- OUTSIDE RECORDS SUMMARY | 2018-04-18 11:52 | XMS REPORT | Clinical Summary ---
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 Rober Rodríguez VACUUM PAN OPERATOR Other malignant secondary hypertension Tachycardia 785.0 Active Andrelldl Rodríguez APRN Tachycardia, unspecified Insect bite, infected [...] by mouth daily for 7 days LEVOFLOXACIN 31480415484 Active Erin Garsia APRN Active BACTRIM DS 800-160 MG TAB 1 tab by mouth twice daily TRIMETHOPRIM-SULFAMETHOXAZOLE 88699886965 No Longer Active Robbie Busby MD Active SPIRONOLACTONE 25 MG TAB 4 tablets by mouth daily SPIRONOLACTONE 27638429747 Active Robbie Busby MD Active HYDRALAZINE HCL 50 MG ORAL TABS TWO BY MOUTH THREE TIMES DAILY HYDRALAZINE HCL 72444712959 No Longer Active Andrellina Zulemal VACUUM PAN OPERATOR Active HYDROCODONE-ACETAMINOPHEN 5-325 MG TABS 1 tab by mouth BID prn back pain 2013 HYDROCODONE-ACETAMINOPHEN 22205261588 No Longer Active Jillina Frazell VACUUM PAN OPERATOR Active HYDROCHLOROTHIAZIDE TABS Take one by mouth daily HYDROCHLOROTHIAZIDE TABS 27736022846 No Longer Active Jillina Frazell VACUUM PAN OPERATOR Active LAMISIL 125 MG ORAL PACK 1 TAB PO DAILY TERBINAFINE HCL 34925120598 No Longer Active Jillina Frazell VACUUM PAN OPERATOR Active TRILEPTAL 150 MG ORAL TABS 1 TAB PO Q HS OXCARBAZEPINE 70419550305 No Longer Active Jillina Frazell VACUUM PAN OPERATOR Active BETADINE 10 % EXT SOLN 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 POVIDONE-IODINE 83796341328 No Longer Active Jillina Frazell VACUUM PAN OPERATOR Active NYSTATIN 271280 UNIT/ML M/T SUSP 5mL po QID x 10 days NYSTATIN 33212388811 No Longer Active Erin Garsia APRN Active PREDNISONE 20 MG TAB 1 tablet twice daily for 2 days, then 1 tablet once daily for 2 days PREDNISONE 63470766694 No Longer Active Robbie Busby MD Active CEFDINIR 300 MG ORAL CAPS Take 1 cap po bid x 10 days CEFDINIR 74922005260 No Longer Active Robbie Busby MD Active AMLODIPINE BESYLATE 10 MG TABS 1 tablet by mouth daily AMLODIPINE BESYLATE 90148666205 Active Robbie Busby MD Active CARVEDILOL 25 MG TABS 1 & 1/2 TAB po BID CARVEDILOL 51336867061 Active Erin Garsia APRN Active VITAMIN D3 48234 UNIT CAPS 2 CAPS PO WEEKLY CHOLECALCIFEROL 32102850885 Active Erin Garsia APRN Active NEXIUM 40 MG CPDR 1 cap by mouth daily ESOMEPRAZOLE MAGNESIUM 89763724111 Active Robbie Busby MD Active PROTONIX 40 MG SOLR 1 po qday for acid reflux PANTOPRAZOLE SODIUM 83516779616 No Longer Active Gali Raida Active KEFLEX 500 MG CAP 1 po TID x 10 days CEPHALEXIN 35922857775 No Longer Active Robbie Busby MD Active FIORICET 50-300-40 MG ORAL CAPS take 1 tab po qday prn migraines. VSTYJOYMWL-TTED-WUALAWRP 08951422139 Active Robbie Busby MD Active TOPIRAMATE 50 MG ORAL TABS take 1 tab po BID for migraines. TOPIRAMATE 11349124079 Active Robbie Busby MD Active MECLIZINE HCL 25 MG TAB one 4 times a day as needed for dizziness MECLIZINE HCL 74827575841 Active Robbie Busby MD Active TEMAZEPAM 15 MG ORAL CAPS 1 TAB PO Q HS TEMAZEPAM 55046441616 Active Robbie Busby MD Active ALPRAZOLAM 2 MG ORAL TABS 1 TAB PO BID ALPRAZOLAM 63611341738 Active Robbie Busby MD Active FENOFIBRATE 145 MG TABS Take one by mouth daily FENOFIBRATE 41483715283 No Longer Active Robbie Busby MD Active SPIRONOLACTONE 50 MG TABS 1 tablet by mouth twice a day SPIRONOLACTONE 19361850936 No Longer Active Robbie Busby MD Active HYDRALAZINE HCL 25 MG TABS 1 tablet by mouth tid for hypertension HYDRALAZINE HCL 02235160480 No Longer Active Robbie Busby MD Active VIIBRYD 40 MG TABS take 1 tab po qday for depression. VILAZODONE HCL 90263007240 No Longer Active Robbie Busby MD Active TERBINAFINE HCL 250 MG TABS 1 tab po qday for foot infection 2014 TERBINAFINE HCL 79880319718 No Longer Active Robbie Busby MD Active GABAPENTIN 300 MG CAPS 1 po q hs for nerve pain GABAPENTIN 60168105984 Active Robbie Busby MD Active FLONASE 50 MCG/ACT SUSP 1 spray each nostril twice daily for allergies and runny nose FLUTICASONE PROPIONATE 00898738092 Active Robbie Busby MD Active CHERATUSSIN AC 100-10 MG/5ML ORAL SOLN 7.5 mL PO q 4-6 hrs PRN cough GUAIFENESIN-CODEINE 08439821820 No Longer Active Robbie Busby MD Active AZITHROMYCIN 250 MG ORAL TABS 2 tablets PO today---then, 1 tablet PO daily x 4 more days (and 1 optional refill) AZITHROMYCIN 37021537548 No Longer Active Robbie Busby MD Active CLONIDINE HCL 0.2 MG ORAL TABS 1 TAB BY MOUTH EVERY 8 HOURS CLONIDINE HCL 24594930784 Active Erin Garsia APRN Active NORVASC 10 MG TAB 1 tablet by mouth daily AMLODIPINE BESYLATE 48806395116 No Longer Active Alex ALVAREZ Active IMDUR 60 MG TAB CR take 1 tab po qday for blood pressure ISOSORBIDE MONONITRATE Active Robbie Busby MD Active ISOSORBIDE DINITRATE 30 MG TABS Take one by mouth daily ISOSORBIDE DINITRATE 70053277638 No Longer Active Robbie Busby MD Active VIIBRYD 40 MG TABS 1 TA B PO DAILY VILAZODONE HCL 36624582203 Active Robbie Busby MD Active LORATADINE 10 MG TABS 1 tablet by mouth daily for congestion and allergies. LORATADINE 02475681857 Active Robbie Busby MD Active ZITHROMAX 250 MG TAB 2 po today, then 1 po q days 2-5 AZITHROMYCIN 34327855432 No Longer Active Robbie Busby MD Active [id number]-[id number]-2 0.3 MG/24HR PTWK apply 2 patches q week for HTN CLONIDINE HCL 01762513280 Active Robbie Busby MD Active NITROSTAT 0.4 MG SUBL PRN NITROGLYCERIN 08388230889 Active Robbie Busby MD Active DOXAZOSIN MESYLATE 4 MG TABS Take one by mouth daily DOXAZOSIN MESYLATE 77050265331 Active Erin Garsia APRN Active TOPROL XL 200 MG [id number] Take one by mouth daily METOPROLOL SUCCINATE 12008088789 Active Robbie Busby MD Active VENLAFAXINE HCL ER 150 MG [id number] Take one by mouth daily VENLAFAXINE HCL 33311557921 Active Robbie Busby MD Active LIPITOR 40 MG TABS Take one by mouth daily ATORVASTATIN CALCIUM 70581802038 Active Robbie Busby MD Active ISOSORBIDE DINITRATE 30 MG TABS Take one by mouth daily ISOSORBIDE DINITRATE 30 MG TABS 519995 ISOSORBIDE DINITRATE Inactive NORVASC 10 MG TAB 1 tablet by mouth daily NORVASC 10 MG TAB 201221 AMLODIPINE BESYLATE Inactive AZITHROMYCIN 250 MG ORAL TABS 2 tablets PO today---then, 1 tablet PO daily x 4 more days (and 1 optional refill) AZITHROMYCIN 250 MG ORAL TABS 8055829 AZITHROMYCIN Inactive CHERATUSSIN AC 100-10 MG/5ML ORAL SOLN 7.5 mL PO q 4-6 hrs PRN cough CHERATUSSIN AC 100-10 MG/5ML ORAL SOLN 723438 GUAIFENESIN- CODEINE Inactive VIIBRYD 40 MG TABS take 1 tab po qday for depression. VIIBRYD 40 MG TABS VILAZODONE HCL Inactive HYDRALAZINE HCL 25 MG TABS 1 tablet by mouth tid for hypertension HYDRALAZINE HCL 25 MG TABS 568408 HYDRALAZINE HCL Inactive SPIRONOLACTONE 50 MG TABS 1 tablet by mouth twice a day SPIRONOLACTONE 50 MG TABS 591194 SPIRONOLACTONE Inactive FENOFIBRATE 145 MG TABS Take one by mouth daily FENOFIBRATE 145 MG TABS 721789 FENOFIBRATE Inactive PROTONIX 40 MG SOLR 1 po qday for acid reflux PROTONIX 40 MG SOLR 137197 PANTOPRAZOLE SODIUM Inactive CEFDINIR 300 MG ORAL CAPS Take 1 cap po bid x 10 days CEFDINIR 300 MG ORAL CAPS 146708 CEFDINIR Inactive PREDNISONE 20 MG TAB 1 tablet twice daily for 2 days, then 1 tablet once daily for 2 days PREDNISONE 20 MG TAB 097750 PREDNISONE Inactive NYSTATIN 273794 UNIT/ML M/T SUSP 5mL po QID x 10 days NYSTATIN 831907 UNIT/ML M/T SUSP 986546 NYSTATIN Inactive BETADINE 10 % EXT SOLN 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 BETADINE 10 % EXT SOLN 5562990 POVIDONE-IODINE Inactive TRILEPTAL 150 MG ORAL TABS 1 TAB PO Q HS TRILEPTAL 150 MG ORAL TABS 107419 OXCARBAZEPINE Inactive LAMISIL 125 MG ORAL PACK 1 TAB PO DAILY LAMISIL 125 MG ORAL PACK TERBINAFINE HCL Inactive HYDROCHLOROTHIAZIDE TABS Take one by mouth daily HYDROCHLOROTHIAZIDE TABS HYDROCHLOROTHIAZIDE TABS Inactive HYDROCODONE-ACETAMINOPHEN 5-325 MG TABS 1 tab by mouth BID prn back pain 2013 HYDROCODONE-ACETAMINOPHEN 5-325 MG TABS 196779 HYDROCODONE -ACETAMINOPHEN Inactive HYDRALAZINE HCL 50 MG ORAL TABS TWO BY MOUTH THREE TIMES DAILY HYDRALAZINE HCL 50 MG ORAL TABS 604439 HYDRALAZINE HCL Inactive ZITHROMAX 250 MG TAB 2 po today, then 1 po q days 2-5 ZITHROMAX 250 MG TAB 6335116 AZITHROMYCIN Inactive TERBINAFINE HCL 250 MG TABS 1 tab po qday for foot infection 2014 TERBINAFINE HCL 250 MG TABS 041261 TERBINAFINE HCL Inactive KEFLEX 500 MG CAP 1 po TID x 10 days KEFLEX 500 MG CAP 610043 CEPHALEXIN Inactive BACTRIM DS 800-160 MG TAB 1 tab by mouth twice daily BACTRIM DS 800-160 MG TAB 058708 TRIMETHOPRIM-SULFAMETHOXAZOLE Inactive Advance Directives Directive Description Start [...] pressure, diastolic - 8462-4 111 mm[Hg] BP de lrio blood pressure, systolic - 8480-6 200 mm[Hg] [...] Acid - Chemistry sodium, serum 139 mmol/L 878-705 4102/04/22 carbon dioxide, venous blood 29.4 mmol/L 21.0-32.0 [...] to Follow Negative Lab Report: VITAMIN D, 25-HYDROXY/96513 - Chemistry vitamin D 25-hydroxy, serum 23 ng/mL 30-100 Encounters Code Encounter Date Provider Facility CPT-87370 Level 4 Est. Patient 12:00:49 HOSE TESTER Rober Rodríguez APRN [facility] CPT-85937 Level 3 Est. Patient 09:16:37 CDT Robbie Busby MD [facility] CPT-87227 Level 3 Est. Patient 19:38:43 CDT Robbie Busby MD [facility] CPT-65234 Level 3 Est. Patient 11:53:38 CDT Robbie Busby MD [facility] [place]-38720 Level 4 Est. Patient 12:52:22 CDT Rober Rodríguez APRN [facility] CPT-93735 Level 4 Est. Patient 22:55:17 CDT Robbie Busby MD [facility] [place]-67090 Level 3 Est. Patient 12:38:24 CDT Desmond Diaz DO [facility] CPT-69617 Level 4 Est. Patient 11:25:03 HOSE TESTER Robbie Busby MD [facility] CPT-60598 Level 4 Est. Patient 14:50:10 CDT Robbie Busby MD [facility] CPT-26207 Level 4 Est. Patient 23:30:43 CDT Robbie Busby MD [facility] CPT-30991 Level 4 Est. Patient 10:30:43 CDT Robbie Busby MD [facility] CPT-89347 Level 3 Est. Patient 17:08:12 CDT Alex ALVAREZ [facility] CPT-87072 Level 4 Est. Patient 17:51:38 CDT Robbie Busby MD [facility] CPT-51923 Level 4 Est. Patient 14:00:21 CDT Robbie Busby MD [facility] CPT-30235 Level 4 Est. Patient 12:46:48 CDT Robbie Busby MD [facility]-23249 Level 4 Est. Patient 13:34:33 CDT Robbie Busby MD [facility] CPT-45175 Level 4 Est. Patient 16:58:28 CDT Robbie Busby MD [facility] CPT-21137 Level 3 Est. Patient 19:36:53 CDT Alex ALVAREZ [facility] CPT-24484 Level 3 Est. Patient 12:58:15 CDT Robbie Busby MD [facility] Procedures Code Procedure Name Date Entry Date Standard Description CPT-J0696 Rocephin 1000 mg (Ceftriaxone) 17:43:43 HOSE TESTER CPT-J1040 Depo Medrol 80 mg (Methyl Prednisolone Acetate) 17:43: 43 HOSE TESTER CPT-J1100 Decadron 8mg (Dexamethasone) 17:43:42 HOSE TESTER CPT-13185 Abx/Therapy Injection 17:43:42 HOSE TESTER CPT-87379 Abx/Therapy Injection 17:43:42 HOSE TESTER CPT-J1040 Depo Medrol 80 mg (Methyl Prednisolone Acetate) 09:43: 34 HOSE TESTER CPT-J1100 Decadron 8mg (Dexamethasone) 09:43:34 HOSE TESTER CPT-J0696 Rocephin 1gm Inj Solr 09:43:34 HOSE TESTER CPT-43263 Wound Culture - LAB USE ONLY 14:00:21 CDT CPT-I/D I/D Abscess 09:16:37 CDT CPT-19683 Venipuncture Draw Fee 15:20:23 CDT CPT-65158 Microalbumin - LAB USE ONLY 16:02:19 CDT CPT-98472 CBC - LAB USE ONLY 16:02:19 CDT CPT-91538 Venipuncture Draw Fee 16:02:19 CDT CPT-G0438 Initial Annual Wellness Exam 08:10:28 CDT CPT-92840 Venipuncture Draw Fee 13:07:17 CDT CPT-G0008 Administration of Influenza Virus Vaccine 16:09:59 CDT CPT-76367 Fluzone Quadrivalent Intramuscular Suspension 0.5 ML 16: 09:59 CDT CPT-67900 Spec Collection and Handling Fee 15:05:50 CDT
--- OUTSIDE RECORDS SUMMARY | 2018-04-18 11:52 | XMS REPORT | Clinical Summary ---
Author Author Admin, AKUA Organization [facility] Address Unknown Phone Unavailable Allergies, Adverse [...] chronic, stage III 585.3 Active Ca Garcia [facility], [facility]–1983 Chronic kidney disease, Stage III (moderate) C V A / Stroke Active Robbie Busby MD Myocardial Infarction: Active Robbie Busby MD Acute myocardial infarction, unspecified site, initial episode of care ( History of) Sleep apnea, chronic 780.57 Active Erin Garsia [employer] Unspecified sleep apnea Continuous positive airway pressure rx V46.2 Active Erin Garsia [employer] Other dependence on machines, 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 Fatigue 780.79 Resolved Desmond Diaz DO Other malaise and fatigue Hypertension, secondary, 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 Desmond Diaz DO Other malignant secondary hypertension Tachycardia 785.0 Active Rober Rodríguez [employer] Tachycardia, unspecified Insect bite, infected 919.5 Resolved Desmond Diaz DO Insect bite, nonvenomous, of other, multiple, and unspecified sites, infected Abscess, skin 682.9 Resolved Desmond Diaz DO Cellulitis and abscess of unspecified sites URI 465.9 Resolved Desmond Diaz DO Acute upper respiratory infections of unspecified site Hypertension 401.9 Active Rober Rodríguez [employer] Unspecified essential hypertension Sinusitis - acute 461.9 Resolved Desmond Dante Diaz DO Acute sinusitis, unspecified Acute confusion 293.0 Resolved Desmond Dante Joe DO Delirium due to conditions classified elsewhere Headache 784.0 Resolved Desmond Dante Oje DO Headache Back pain 724.5 Resolved Desmond [...] Hypogonadism, low testosterone 257.2 Active Erin Garsia [employer] Other testicular hypofunction Low back pain, chronic 724.2 Active Robbie Busby MD Lumbago Bronchitis-Acute 466.0 Active Desmond Howell Joe DO Acute bronchitis Polydipsia 783.5 Active Desmond Dante Joe DO Polydipsia Sinusitis ICD-461.9 Inactive Emily Atwood [employer] 2017 Low back pain, acute ICD-724.2 Inactive Emily Atwood [employer] Low back pain, chronic ICD-724.2 Inactive Emily Atwood [employer] Bronchitis, acute ICD-466.0 Inactive Emily Atwood [employer] Onychomycosis, toenails ICD-110.1 Inactive Emily Atwood [employer] Dizziness ICD-780.4 Inactive Emily Atwood [employer] 2017 Folliculitis ICD-704.8 Inactive Emily Atwood [employer] Pharyngitis-Acute ICD-462 Inactive Emily Atwood [employer] Fatigue ICD-780.79 Inactive Emily Atwood [employer] 09/20 Hypertension, secondary, malignant ICD-405.09 Inactive Emily Atwood [employer] Insect bite, infected ICD-919.5 Inactive Emily Atwood [employer] Abscess, skin ICD-682.9 Inactive Emily Atwood [employer] URI ICD-465.9 Inactive Emily Atwood [employer] Sinusitis - acute ICD-461.9 Inactive Emily Atwood [employer] Acute confusion ICD-293.0 Inactive Emily Atwood [employer] Headache ICD-784.0 Inactive Emily Atwood [employer] 09/20 Back pain ICD-724.5 Inactive Emily Atwood [employer] 2017 Rib pain, right sided ICD-786.50 Inactive Emily Atwood [employer] Myalgias ICD-729.1 Inactive Emily Atwood [employer] 09/20 URI ICD-465.9 Inactive Emily Atwood TANNA Medication List Medication Instructions Start Date Stop Date Generic Name NDC Status Provider Patient Instruction PREDNISONE 20 MG ORAL TABLET two tabs by mouth today, then one tab by mouth days two and three PREDNISONE 81869619693 Active Desmond Diaz DO Active AZITHROMYCIN 250 MG ORAL TABLET 2 po qd x 1 day, then 1 po qd x 4 days 09/20 AZITHROMYCIN 79787902633 Active Desmond Diaz DO Active TOPIRAMATE 50 MG ORAL TABLET take 1 tab po BID for migraines. TOPIRAMATE 12496362774 No Longer Active Desmond Diaz DO Active CYCLOBENZAPRINE HCL 10 MG ORAL TABLET 1 po TID PRN muscle spasm/pain for 10 days CYCLOBENZAPRINE HCL 66898207076 No Longer Active Desmond Diaz DO Active GUAIFENESIN ER 600 MG ORAL TABLET EXTENDED RELEASE 12 HOUR 1 tab po q am 2016 GUAIFENESIN 05340659656 No Longer Active Robbie Busby MD Active DIVALPROEX SODIUM ER 500 MG ORAL TABLET EXTENDED RELEASE 24 HOUR Once daily DIVALPROEX SODIUM 55610993383 Active Robbie Busby MD Active DEPO-TESTOSTERONE 200 MG/ML INTRAMUSCULAR SOLUTION 1 IM Injections every 2 weeks for low testosterone TESTOSTERONE CYPIONATE 54098550967 Active Zulema Blank LPN Active FLUTICASONE PROPIONATE 50 MCG/ACT NASAL SUSPENSION 2 sprays per nostril bid for 1 week, then 1 spray bid FLUTICASONE PROPIONATE 58982993413 Active Rober Rodríguez APRN Active HYDRALAZINE HCL 25 MG ORAL TABLET Take 1 tab BID. HYDRALAZINE HCL 96355139326 Active Rober Rodríguez APRN Active VITAMIN D3 45989 UNIT ORAL TABLET 2 po weekly CHOLECALCIFEROL 06659950082 Active Robbie Busby MD Active OXYCODONE HCL ER 10 MG ORAL TABLET ER 12 HOUR ABUSE-DETERRENT 1 tab po 3 times qd. OXYCODONE HCL 70608678553 Active Robbie Busby MD Active NITROSTAT 0.4 MG SUBLINGUAL TABLET SUBLINGUAL PRN NITROGLYCERIN 93913379261 No Longer Active Robbie Busby MD Active LORATADINE 10 MG ORAL TABLET 1 tablet by mouth daily for congestion and allergies. LORATADINE 96794182971 No Longer Active Robbie Busby MD Active FLONASE 50 MCG/ACT NASAL SUSPENSION 1 spray each nostril twice daily for allergies and runny nose FLUTICASONE PROPIONATE 63111449163 No Longer Active Robbie Busby MD Active FIORICET 50-300-40 MG ORAL CAPSULE take 1 tab po qday prn migraines. [id number] 36218664347 No Longer Active Robbie Busby MD Active VITAMIN D3 52363 UNIT ORAL CAPSULE 2 CAPS PO WEEKLY CHOLECALCIFEROL 89543493327 No Longer Active Robbie Busby MD Active CYCLOBENZAPRINE HCL 10 MG ORAL TABLET 1 tablet by mouth three times daily as needed for muscle spasm/pain for 10 days CYCLOBENZAPRINE HCL 57718544968 No Longer Active Robbie Busby MD Active PREDNISONE 20 MG ORAL TABLET take 3 tabs daily for 3 days, 2 tabs daily for 3 days, 1 tab daily for 3 days, 1/2 tab daily for 4 days PREDNISONE 24223124294 No Longer Active Erin Garsia APRN Active CLONIDINE HCL 0.2 MG ORAL TABLET 1 TAB BY MOUTH EVERY 8 HOURS CLONIDINE HCL 66553939145 No Longer Active Erin Garsia APRN Active MECLIZINE HCL 25 MG ORAL TABLET one 4 times a day as needed for dizziness MECLIZINE HCL 01906013525 No Longer Active Erin Garsia APRN Active SPIRONOLACTONE 25 MG ORAL TABLET 4 tablets by mouth daily SPIRONOLACTONE 70187481230 No Longer Active Erin Garsia APRN Active LEVAQUIN 500 MG ORAL TABLET 1 tablet by mouth daily for 7 days LEVOFLOXACIN 85311899439 No Longer Active Erin Garisa APRN Active BACTRIM DS 800-160 MG ORAL TABLET 1 tab by mouth twice daily 2015 TRIMETHOPRIM-SULFAMETHOXAZOLE 51831149383 No Longer Active Robbie Busby MD Active HYDRALAZINE HCL 50 MG ORAL TABLET TWO BY MOUTH THREE TIMES DAILY HYDRALAZINE HCL 68831592109 No Longer Active Jillina Frazell [employer] Active HYDROCODONE-ACETAMINOPHEN 5-325 MG ORAL TABLET 1 tab by mouth BID prn back pain HYDROCODONE-ACETAMINOPHEN 91705192199 No Longer Active Jillina Frazell [employer] Active HYDROCHLOROTHIAZIDE TABLET Take one by mouth daily HYDROCHLOROTHIAZIDE TABS 56193604345 No Longer Active Jillina Frazell [employer] Active LAMISIL 125 MG ORAL PACKET 1 TAB PO DAILY TERBINAFINE HCL 83494727908 No Longer Active Jillina Frazell [employer] Active TRILEPTAL 150 MG ORAL TABLET 1 TAB PO Q HS OXCARBAZEPINE 09209710800 No Longer Active Jillina Frazell [employer] Active BETADINE 10 % EXTERNAL SOLUTION wash with solution to treat follicultis 07/29 POVIDONE-IODINE 00009972735 No Longer Active Jillina Frazell [employer] Active NYSTATIN 808883 UNIT/ML MOUTH/THROAT SUSPENSION 5mL po QID x 10 days NYSTATIN 03456422991 No Longer Active Erin Garsia APRN Active PREDNISONE 20 MG ORAL TABLET 1 tablet twice daily for 2 days, then 1 tablet once daily for 2 days PREDNISONE 50977668078 No Longer Active Robbie Busby MD Active CEFDINIR 300 MG ORAL CAPSULE Take 1 cap po bid x 10 days CEFDINIR 87298212272 No Longer Active Robbie Busby MD Active AMLODIPINE BESYLATE 10 MG ORAL TABLET 1 tablet by mouth daily AMLODIPINE BESYLATE 52972358219 Active Robbie Busby MD Active CARVEDILOL 25 MG ORAL TABLET 1 & 1/2 TAB po BID CARVEDILOL 08173924745 Active Robbie Busby MD Active NEXIUM 40 MG ORAL CAPSULE DELAYED RELEASE 1 cap by mouth daily ESOMEPRAZOLE MAGNESIUM 48867469372 Active Robbie Busby MD Active PROTONIX 40 MG INTRAVENOUS SOLUTION RECONSTITUTED 1 po qday for acid reflux PANTOPRAZOLE SODIUM 95587238234 No Longer Active Galileonila Negor Active KEFLEX 500 MG ORAL CAPSULE 1 po TID x 10 days CEPHALEXIN 98008026595 No Longer Active Robbie Busby MD Active TEMAZEPAM 15 MG ORAL CAPSULE 1 TAB PO Q HS TEMAZEPAM 50829956748 Active Robbie Busby MD Active ALPRAZOLAM 2 MG ORAL TABLET 1 TAB PO BID ALPRAZOLAM 26039424154 Active Robbie Busby MD Active FENOFIBRATE 145 MG ORAL TABLET Take one by mouth daily FENOFIBRATE 05913580980 No Longer Active Robbie Busby MD Active SPIRONOLACTONE 50 MG ORAL TABLET 1 tablet by mouth twice a day SPIRONOLACTONE 74055047520 No Longer Active Robbie Busby MD Active HYDRALAZINE HCL 25 MG ORAL TABLET 1 tablet by mouth tid for hypertension 2013 HYDRALAZINE HCL 71434835970 No Longer Active Robbie Busby MD Active VIIBRYD 40 MG ORAL TABLET take 1 tab po qday for depression. 2014 VILAZODONE HCL 16807088349 No Longer Active Robbie Busby MD Active TERBINAFINE HCL 250 MG ORAL TABLET 1 tab po qday for foot infection TERBINAFINE HCL 30215207872 No Longer Active Robbie Busby MD Active GABAPENTIN 300 MG ORAL CAPSULE 1 po q hs for nerve pain GABAPENTIN 18114503108 Active Robbie Busby MD Active CHERATUSSIN AC 100-10 MG/5ML ORAL SOLUTION 7.5 mL PO q 4-6 hrs PRN cough 2014 GUAIFENESIN-CODEINE 21449134344 No Longer Active Robbie Busby MD Active AZITHROMYCIN 250 MG ORAL TABLET 2 tablets PO today---then, 1 tablet PO daily x 4 more days (and 1 optional refill) AZITHROMYCIN 64815803595 No Longer Active Robbie Busby MD Active NORVASC 10 MG ORAL TABLET 1 tablet by mouth daily AMLODIPINE BESYLATE 15863061360 No Longer Active Alex ALVARZE Active IMDUR 60 MG ORAL TABLET EXTENDED RELEASE 24 HOUR take 1 tab po qday for blood pressure ISOSORBIDE MONONITRATE 79837371374 Active Robbie Busby MD Active ISOSORBIDE DINITRATE 30 MG ORAL TABLET Take one by mouth daily ISOSORBIDE DINITRATE 54526112866 No Longer Active Robbie Busby MD Active VIIBRYD 40 MG ORAL TABLET 1 TA B PO DAILY VILAZODONE HCL 68371598928 Active Robbie Busby MD Active ZITHROMAX 250 MG ORAL TABLET 2 po today, then 1 po q days 2-5 AZITHROMYCIN 94851260514 No Longer Active Robbie Busby MD Active [id number] 0.3 MG/24HR TRANSDERMAL PATCH WEEKLY apply 2 patches q week for HTN CLONIDINE HCL 59299590889 Active Robbie Busby MD Active DOXAZOSIN MESYLATE 4 MG ORAL TABLET Take one by mouth daily DOXAZOSIN MESYLATE 03226710106 Active Robbie Busby MD Active TOPROL XL 200 MG ORAL TABLET EXTENDED RELEASE 24 HOUR Take one by mouth daily METOPROLOL SUCCINATE 03124574520 Active Robbie Busby MD Active VENLAFAXINE HCL ER 150 MG ORAL TABLET EXTENDED RELEASE 24 HOUR Take one by mouth daily VENLAFAXINE HCL 32461278060 Active Robbie Busby MD Active LIPITOR 40 MG ORAL TABLET Take one by mouth daily ATORVASTATIN CALCIUM 32755346623 Active Robbie Busby MD Active ISOSORBIDE DINITRATE 30 MG ORAL TABLET Take one by mouth daily ISOSORBIDE DINITRATE 30 MG ORAL TABLET 876111 ISOSORBIDE DINITRATE Inactive NORVASC 10 MG ORAL TABLET 1 tablet by mouth daily NORVASC 10 MG ORAL TABLET 944009 AMLODIPINE BESYLATE Inactive AZITHROMYCIN 250 MG ORAL TABLET 2 tablets PO today---then, 1 tablet PO daily x 4 more days (and 1 optional refill) AZITHROMYCIN 250 MG ORAL TABLET 080152 AZITHROMYCIN Inactive CHERATUSSIN AC 100-10 MG/5ML ORAL SOLUTION 7.5 mL PO q 4-6 hrs PRN cough 2014 CHERATUSSIN AC 100-10 MG/5ML ORAL SOLUTION 672043 GUAIFENESIN-CODEINE Inactive VIIBRYD 40 MG ORAL TABLET take 1 tab po qday for depression. 2014 VIIBRYD 40 MG ORAL TABLET VILAZODONE HCL Inactive HYDRALAZINE HCL 25 MG ORAL TABLET 1 tablet by mouth tid for hypertension 2013 HYDRALAZINE HCL 25 MG ORAL TABLET 417705 HYDRALAZINE HCL Inactive SPIRONOLACTONE 50 MG ORAL TABLET 1 tablet by mouth twice a day SPIRONOLACTONE 50 MG ORAL TABLET 540487 SPIRONOLACTONE Inactive FENOFIBRATE 145 MG ORAL TABLET Take one by mouth daily FENOFIBRATE 145 MG ORAL TABLET 932580 FENOFIBRATE Inactive PROTONIX 40 MG INTRAVENOUS SOLUTION RECONSTITUTED 1 po qday for acid reflux PROTONIX 40 MG INTRAVENOUS SOLUTION RECONSTITUTED 319709 PANTOPRAZOLE SODIUM Inactive CEFDINIR 300 MG ORAL CAPSULE Take 1 cap po bid x 10 days CEFDINIR 300 MG ORAL CAPSULE 887455 CEFDINIR Inactive PREDNISONE 20 MG ORAL TABLET 1 tablet twice daily for 2 days, then 1 tablet once daily for 2 days PREDNISONE 20 MG ORAL TABLET 928151 PREDNISONE Inactive NYSTATIN 822817 UNIT/ML MOUTH/THROAT SUSPENSION 5mL po QID x 10 days NYSTATIN 808444 UNIT/ML MOUTH/THROAT SUSPENSION 390498 NYSTATIN Inactive BETADINE 10 % EXTERNAL SOLUTION wash with solution to treat follicultis 07/29 BETADINE 10 % EXTERNAL SOLUTION 7824703 POVIDONE-IODINE Inactive TRILEPTAL 150 MG ORAL TABLET 1 TAB PO Q HS TRILEPTAL 150 MG ORAL TABLET 188111 OXCARBAZEPINE Inactive LAMISIL 125 MG ORAL PACKET 1 TAB PO DAILY LAMISIL 125 MG ORAL PACKET TERBINAFINE HCL Inactive HYDROCHLOROTHIAZIDE TABLET Take one by mouth daily HYDROCHLOROTHIAZIDE TABLET HYDROCHLOROTHIAZIDE TABS Inactive HYDROCODONE-ACETAMINOPHEN 5-325 MG ORAL TABLET 1 tab by mouth BID prn back pain HYDROCODONE-ACETAMINOPHEN 5-325 MG ORAL TABLET 162902 HYDROCODONE-ACETAMINOPHEN Inactive HYDRALAZINE HCL 50 MG ORAL TABLET TWO BY MOUTH THREE TIMES DAILY HYDRALAZINE HCL 50 MG ORAL TABLET 985850 HYDRALAZINE HCL Inactive LEVAQUIN 500 MG ORAL TABLET 1 tablet by mouth daily for 7 days LEVAQUIN 500 MG ORAL TABLET 581930 LEVOFLOXACIN Inactive SPIRONOLACTONE 25 MG ORAL TABLET 4 tablets by mouth daily SPIRONOLACTONE 25 MG ORAL TABLET 281532 SPIRONOLACTONE Inactive MECLIZINE HCL 25 MG ORAL TABLET one 4 times a day as needed for dizziness MECLIZINE HCL 25 MG ORAL TABLET 222883 MECLIZINE HCL Inactive CLONIDINE HCL 0.2 MG ORAL TABLET 1 TAB BY MOUTH EVERY 8 HOURS CLONIDINE HCL 0.2 MG ORAL TABLET 433331 CLONIDINE HCL Inactive CYCLOBENZAPRINE HCL 10 MG ORAL TABLET 1 tablet by mouth three times daily as needed for muscle spasm/pain for 10 days CYCLOBENZAPRINE HCL 10 MG ORAL TABLET 990928 CYCLOBENZAPRINE HCL Inactive VITAMIN D3 55084 UNIT ORAL CAPSULE 2 CAPS PO WEEKLY VITAMIN D3 67866 UNIT ORAL CAPSULE CHOLECALCIFEROL Inactive FIORICET 50-300-40 MG ORAL CAPSULE take 1 tab po qday prn migraines. FIORICET 50-300-40 MG ORAL CAPSULE 232547 BUTALBITAL-APAP- CAFFEINE Inactive FLONASE 50 MCG/ACT NASAL SUSPENSION 1 spray each nostril twice daily for allergies and runny nose FLONASE 50 MCG/ACT NASAL SUSPENSION 1161531 FLUTICASONE PROPIONATE Inactive LORATADINE 10 MG ORAL TABLET 1 tablet by mouth daily for congestion and allergies. LORATADINE 10 MG ORAL TABLET 856930 LORATADINE Inactive NITROSTAT 0.4 MG SUBLINGUAL TABLET SUBLINGUAL PRN NITROSTAT 0.4 MG SUBLINGUAL TABLET SUBLINGUAL 836637 NITROGLYCERIN Inactive GUAIFENESIN ER 600 MG ORAL TABLET EXTENDED RELEASE 12 HOUR 1 tab po q am 2016 GUAIFENESIN ER 600 MG ORAL TABLET EXTENDED RELEASE 12 HOUR GUAIFENESIN Inactive CYCLOBENZAPRINE HCL 10 MG ORAL TABLET 1 po TID PRN muscle spasm/pain for 10 days CYCLOBENZAPRINE HCL 10 MG ORAL TABLET 373014 CYCLOBENZAPRINE HCL Inactive TOPIRAMATE 50 MG ORAL TABLET take 1 tab po BID for migraines. TOPIRAMATE 50 MG ORAL TABLET 680058 TOPIRAMATE Inactive ZITHROMAX 250 MG ORAL TABLET 2 po today, then 1 po q days 2-5 ZITHROMAX 250 MG ORAL TABLET 295623 AZITHROMYCIN Inactive TERBINAFINE HCL 250 MG ORAL TABLET 1 tab po qday for foot infection TERBINAFINE HCL 250 MG ORAL TABLET 616049 TERBINAFINE HCL Inactive KEFLEX 500 MG ORAL CAPSULE 1 po TID x 10 days KEFLEX 500 MG ORAL CAPSULE 536642 CEPHALEXIN Inactive BACTRIM DS 800-160 MG ORAL TABLET 1 tab by mouth twice daily 2015 BACTRIM DS 800-160 MG ORAL TABLET 692758 TRIMETHOPRIM- SULFAMETHOXAZOLE Inactive PREDNISONE 20 MG ORAL TABLET take 3 tabs daily for 3 days, 2 tabs daily for 3 days, 1 tab daily for 3 days, 1/2 tab daily for 4 days PREDNISONE 20 MG ORAL TABLET 115077 PREDNISONE Inactive Advance Directives Directive Description Start [...] AUTO - Chemistry sodium, serum 142 mmol/L 699-958 8312/07/17 carbon dioxide, venous blood 28.2 mmol/L 21.0-32.0 [...] % 11.0-15.0 platelet count 185 THOUSAND/UL 10*3/mm3 123-730 3742/04/14 mean platelet volume 10.9 fL 7.5-12.5 Lab Report: HGBA1C, Basic Metabolic Panel - Chemistry hemoglobin A1C, blood, as % of total hemoglobin 6.9 % 4.3-6.0 sodium, serum 139 mmol/L 136-500 1919/01/04 potassium, serum 3.9 mmol/L 3.5-5.2 chloride, serum 103 mmol/L 98-107 carbon dioxide, venous blood 26.9 mmol/L 21.0-32.0 blood glucose 106 mg/dL 65-110 calcium, serum 9.0 mg/dL 8.5-10.1 urea nitrogen, blood 20 mg/dL 7-18 creatinine, serum 1.46 mg/dL 0.60-1.30 Lab Report: LIPID PANEL, TSH/899, T4, FREE/866 - Chemistry cholesterol, serum 220 mg/dL 101-468 9449/04/14 HDL cholesterol, serum 30 mg/dL > OR=40 [...] 1.80 ng/mL 0.00-4.00 Lab Report: VITAMIN D, 25-HYDROXY/06244 - Chemistry vitamin D 25-hydroxy, serum 25 ng/mL 30-100 Office Visit: Confusion, dizziness after fall - Basic LDL target level 130 mg/dL Office Visit: Confusion, dizziness after fall - Chemistry HDL cholesterol, serum, target level 40 mg/dL triglyceride, target level 150 mg/dL cholesterol, target level 200 mg/dL Encounters Code Encounter Date Provider Facility CPT-20628 Level 4 Est. Patient 15:23:44 ADJUNCT BUSINESS INSTRUCTOR Desmond Diaz DO [facility] CPT-88447 Level 3 Est. Patient 15:40:49 CDT Robbie Busby MD [facility] CPT-67189 Level 4 Est. Patient 15:18:19 CDT Robbie Busby MD [facility] CPT-90006 Level 3 Est. Patient 09:00:37 CDT Rober Rodríguez [facility] CPT-40212 Level 3 Est. Patient 16:07:10 CDT Robbie Busby MD [facility] CPT-25992 Level 4 Est. Patient 11:56:16 CDT Erin Garsia [facility] CPT-00073 Level 3 Est. Patient 17:48:02 CDT Robbie Busby MD [facility] CPT-07278 Level 4 Est. Patient 12:00:49 ADJUNCT BUSINESS INSTRUCTOR Rober Rodríguez [facility] CPT-60274 Level 3 Est. Patient 09:16:37 CDT Robbie Busby MD [facility] CPT-10630 Level 3 Est. Patient 19:38:43 CDT Robbie Busby MD [facility] CPT-86397 Level 3 Est. Patient 11:53:38 CDT Robbie Busby MD [facility] CPT-19899 Level 4 Est. Patient 12:52:22 CDT Rober Rodríguez [facility] CPT-79870 Level 4 Est. Patient 22:55:17 CDT Robbie Busby MD [facility] CPT-58274 Level 3 Est. Patient 12:38:24 CDT Desmond Diaz DO [facility] CPT-81195 Level 4 Est. Patient 11:25:03 ADJUNCT BUSINESS INSTRUCTOR Robbie Busby MD [facility] CPT-59514 Level 4 Est. Patient 14:50:10 CDT Robbie Busby MD [facility] CPT-25817 Level 4 Est. Patient 23:30:43 CDT Robbie Busby MD [facility] CPT-39035 Level 4 Est. Patient 10:30:43 CDT Robbie Busby MD [facility] CPT-30639 Level 3 Est. Patient 17:08:12 CDT [facility] CPT-47217 Level 4 Est. Patient 17:51:38 CDT Robbie Busby MD [facility] CPT-83379 Level 4 Est. Patient 14:00:21 CDT Robbie Busby MD [facility] CPT-15656 Level 4 Est. Patient 12:46:48 CDT Robbie Busby MD [facility] CPT-36266 Level 4 Est. Patient 13:34:33 CDT Robbie Busby MD [facility] CPT-60557 Level 4 Est. Patient 16:58:28 CDT Robbie Busby MD [facility] CPT-55058 Level 3 Est. Patient 19:36:53 CDT [facility] CPT-00315 Level 3 Est. Patient 12:58:15 CDT Robbie Busby MD [facility] Procedures Code Procedure Name Date Entry Date Standard Description CPT-J1071 Depo Testosterone 200mg 09:38:36 ADJUNCT BUSINESS INSTRUCTOR CPT-04171 Abx/Therapy Injection 09:38:36 ADJUNCT BUSINESS INSTRUCTOR CPT-J1071 Depo Testosterone 200mg 10:22:56 ADJUNCT BUSINESS INSTRUCTOR CPT-04860 Abx/Therapy Injection 10:22:56 ADJUNCT BUSINESS INSTRUCTOR CPT-J1071 Depo Testosterone 200mg 15:40:23 CDT CPT-07886 Abx/Therapy Injection 15:40:23 CDT CPT-J1071 Depo Testosterone 200mg 14:20:43 CDT CPT-95954 Abx/Therapy Injection 14:20:43 CDT CPT-J1071 Depo Testosterone 200mg 14:17:22 CDT CPT-59619 Abx/Therapy Injection 14:17:22 CDT CPT-J1071 Depo Testosterone 200mg 09:03:53 CDT CPT-40090 Abx/Therapy Injection 09:03:53 CDT CPT-G0439 [facility] Annual Wellness Exam 16:47:44 CDT CPT-J1071 Depo Testosterone 200mg 09:06:28 CDT CPT-80448 Abx/Therapy Injection 09:06:28 CDT CPT-J1071 Depo Testosterone 200mg 08:30:01 CDT CPT-66463 Abx/Therapy Injection 08:30:01 CDT CPT-J1071 Depo Testosterone 200mg 08:24:00 CDT CPT-44045 Abx/Therapy Injection 08:24:00 CDT CPT-94868 Venipuncture Draw Fee 14:39:06 CDT CPT-63111 Ribs unilateral 2V - XRAY USE ONLY 12:10:11 CDT CPT-41501 First Vx - Ix admin for Medicare patients 16:32:53 CDT CPT-29556 Boostrix Intramuscular Suspension 5-2.5-18.5 16:32:53 CDT CPT-65275 TB Skin Test 11:42:28 CDT CPT-21662 Tdap 7yrs or > 11:42:28 CDT CPT-J0696 Rocephin 1000 mg (Ceftriaxone) 17:43:43 ADJUNCT BUSINESS INSTRUCTOR CPT-J1040 Depo Medrol 80 mg (Methyl Prednisolone Acetate) 17:43: 43 ADJUNCT BUSINESS INSTRUCTOR CPT-J1100 Decadron 8mg (Dexamethasone) 17:43:42 ADJUNCT BUSINESS INSTRUCTOR CPT-69681 Abx/Therapy Injection 17:43:42 ADJUNCT BUSINESS INSTRUCTOR CPT-10603 Abx/Therapy Injection 17:43:42 ADJUNCT BUSINESS INSTRUCTOR CPT-J1040 Depo Medrol 80 mg (Methyl Prednisolone Acetate) 09:43: 34 ADJUNCT BUSINESS INSTRUCTOR CPT-J1100 Decadron 8mg (Dexamethasone) 09:43:34 ADJUNCT BUSINESS INSTRUCTOR CPT-J0696 Rocephin 1gm Inj Solr 09:43:34 ADJUNCT BUSINESS INSTRUCTOR CPT-33260 Wound Culture - LAB USE ONLY 14:00:21 CDT CPT-I/D I/D Abscess 09:16:37 CDT CPT-05102 Venipuncture Draw Fee 15:20:23 CDT CPT-68178 Microalbumin - LAB USE ONLY 16:02:19 CDT CPT-03440 CBC - LAB USE ONLY 16:02:19 CDT CPT-73937 Venipuncture Draw Fee 16:02:19 CDT CPT-G0438 Initial Annual Wellness Exam 08:10:28 CDT CPT-62763 Venipuncture Draw Fee 13:07:17 CDT CPT-G0008 Administration of Influenza Virus Vaccine 16:09:59 CDT CPT-41313 Fluzone Quadrivalent Intramuscular Suspension 0.5 ML 16: 09:59 CDT CPT-01180 Spec Collection and Handling Fee 15:05:50 CDT
--- OUTSIDE RECORDS SUMMARY | 2018-04-18 11:53 | XMS REPORT | Clinical Summary ---
Author Author Admin, [facility] Organization [facility] Address Unknown Phone Unavailable [...] Status Provider Patient Instruction GUAIFENESIN 600 MG [id number] 1 tab po q am GUAIFENESIN 59829827712 Active Jillina Frazell SPECTROSCOPIST Active FLUTICASONE PROPIONATE 50 MCG/ACT SUSP 2 sprays per nostril bid for 1 week, then 1 spray bid FLUTICASONE PROPIONATE 70219413001 Active Jillina Frazell SPECTROSCOPIST Active HYDRALAZINE HCL 25 MG ORAL TABS Take 1 tab BID. HYDRALAZINE HCL 70240993764 Active Jillina Frazell SPECTROSCOPIST Active VITAMIN D3 10241 UNIT ORAL TABS 2 po weekly CHOLECALCIFEROL 48263642680 Active KATHIE MoncadaNara Active OXYCODONE HCL ER 10 MG ORAL T12A 1 tab po 3 times qd. OXYCODONE HCL 88878673531 Active Robbie Busby MD Active NITROSTAT 0.4 MG SUBL PRN NITROGLYCERIN 90028661482 No Longer Active Robbie Busby MD Active LORATADINE 10 MG TABS 1 tablet by mouth daily for congestion and allergies. LORATADINE 56431074371 No Longer Active Robbie Busby MD Active FLONASE 50 MCG/ACT SUSP 1 spray each nostril twice daily for allergies and runny nose FLUTICASONE PROPIONATE 70020337137 No Longer Active Robbie Busby MD Active FIORICET 50-300-40 MG ORAL CAPS take 1 tab po qday prn migraines. [id number] 36955783748 No Longer Active Robbie Busby MD Active VITAMIN D3 86542 UNIT CAPS 2 CAPS PO WEEKLY CHOLECALCIFEROL 62503999979 No Longer Active Robbie Busby MD Active CYCLOBENZAPRINE HCL 10 MG TABS 1 tablet by mouth three times daily as needed for muscle spasm/pain for 10 days CYCLOBENZAPRINE HCL 74684120787 No Longer Active Robbie Busby MD Active PREDNISONE 20 MG TAB take 3 tabs daily for 3 days, 2 tabs daily for 3 days, 1 tab daily for 3 days, 1/2 tab daily for 4 days PREDNISONE 39879224389 No Longer Active Erin Garsia APRN Active CLONIDINE HCL 0.2 MG ORAL TABS 1 TAB BY MOUTH EVERY 8 HOURS 12/29 CLONIDINE HCL 49485953546 No Longer Active Erin Garsia APRN Active MECLIZINE HCL 25 MG TAB one 4 times a day as needed for dizziness MECLIZINE HCL 19470342287 No Longer Active Erin Garsia APRN Active SPIRONOLACTONE 25 MG TAB 4 tablets by mouth daily SPIRONOLACTONE 06607766715 No Longer Active Erin Garsia APRN Active LEVAQUIN 500 MG TAB 1 tablet by mouth daily for 7 days LEVOFLOXACIN 46085787437 No Longer Active Erin Garsia APRN Active BACTRIM DS 800-160 MG TAB 1 tab by mouth twice daily TRIMETHOPRIM-SULFAMETHOXAZOLE 23698783877 No Longer Active Robbie Busby MD Active HYDRALAZINE HCL 50 MG ORAL TABS TWO BY MOUTH THREE TIMES DAILY HYDRALAZINE HCL 33412013682 No Longer Active Jillina Frazell SPECTROSCOPIST Active HYDROCODONE-ACETAMINOPHEN 5-325 MG TABS 1 tab by mouth BID prn back pain 2013 HYDROCODONE-ACETAMINOPHEN 10050349837 No Longer Active Jillina Frazell SPECTROSCOPIST Active HYDROCHLOROTHIAZIDE TABS Take one by mouth daily HYDROCHLOROTHIAZIDE TABS 42219644182 No Longer Active Jillina Frazell SPECTROSCOPIST Active LAMISIL 125 MG ORAL PACK 1 TAB PO DAILY TERBINAFINE HCL 30519803110 No Longer Active Jillina Frazell SPECTROSCOPIST Active TRILEPTAL 150 MG ORAL TABS 1 TAB PO Q HS OXCARBAZEPINE 18569217183 No Longer Active Jillina Frazell SPECTROSCOPIST Active BETADINE 10 % EXT SOLN wash with solution to treat follicultis POVIDONE-IODINE 30074328179 No Longer Active Jillina Frakierstenl SPECTROSCOPIST Active NYSTATIN 483574 UNIT/ML M/T SUSP 5mL po QID x 10 days NYSTATIN 43147591473 No Longer Active Erin Garsia APRN Active PREDNISONE 20 MG TAB 1 tablet twice daily for 2 days, then 1 tablet once daily for 2 days PREDNISONE 52656959704 No Longer Active Robbie Busby MD Active CEFDINIR 300 MG ORAL CAPS Take 1 cap po bid x 10 days CEFDINIR 36117554549 No Longer Active Robbie Busby MD Active AMLODIPINE BESYLATE 10 MG TABS 1 tablet by mouth daily AMLODIPINE BESYLATE 52385745092 Active Robbie Busby MD Active CARVEDILOL 25 MG TABS 1 & 1/2 TAB po BID CARVEDILOL 31822292439 Active Robbie Busby MD Active NEXIUM 40 MG CPDR 1 cap by mouth daily ESOMEPRAZOLE MAGNESIUM 68831073183 Active Robbie Busby MD Active PROTONIX 40 MG SOLR 1 po qday for acid reflux PANTOPRAZOLE SODIUM 19094539486 No Longer Active Gali Raida Active KEFLEX 500 MG CAP 1 po TID x 10 days CEPHALEXIN 06364559633 No Longer Active Robbie Busby MD Active TOPIRAMATE 50 MG ORAL TABS take 1 tab po BID for migraines. TOPIRAMATE 75735259546 Active Robbie Busby MD Active TEMAZEPAM 15 MG ORAL CAPS 1 TAB PO Q HS TEMAZEPAM 86499149173 Active Robbie Busby MD Active ALPRAZOLAM 2 MG ORAL TABS 1 TAB PO BID ALPRAZOLAM 94599560735 Active Robbie Busby MD Active FENOFIBRATE 145 MG TABS Take one by mouth daily FENOFIBRATE 87632925206 No Longer Active Robbie Busby MD Active SPIRONOLACTONE 50 MG TABS 1 tablet by mouth twice a day SPIRONOLACTONE 76320104959 No Longer Active Robbie Busby MD Active HYDRALAZINE HCL 25 MG TABS 1 tablet by mouth tid for hypertension HYDRALAZINE HCL 77363302465 No Longer Active Robbie Busby MD Active VIIBRYD 40 MG TABS take 1 tab po qday for depression. VILAZODONE HCL 08131166848 No Longer Active Robbie Busby MD Active TERBINAFINE HCL 250 MG TABS 1 tab po qday for foot infection 2014 TERBINAFINE HCL 29384679932 No Longer Active Robbie Busby MD Active GABAPENTIN 300 MG CAPS 1 po q hs for nerve pain GABAPENTIN 90140191082 Active Robbie Busby MD Active CHERATUSSIN AC 100-10 MG/5ML ORAL SOLN 7.5 mL PO q 4-6 hrs PRN cough GUAIFENESIN-CODEINE 37052179211 No Longer Active Robbie Busby MD Active AZITHROMYCIN 250 MG ORAL TABS 2 tablets PO today---then, 1 tablet PO daily x 4 more days (and 1 optional refill) AZITHROMYCIN 79957915083 No Longer Active Robbie Busby MD Active NORVASC 10 MG TAB 1 tablet by mouth daily AMLODIPINE BESYLATE 22367025294 No Longer Active Alex ALVAREZ Active IMDUR 60 MG TAB CR take 1 tab po qday for blood pressure ISOSORBIDE MONONITRATE Active Robbie Busby MD Active ISOSORBIDE DINITRATE 30 MG TABS Take one by mouth daily ISOSORBIDE DINITRATE 39903707571 No Longer Active Robbie Busby MD Active VIIBRYD 40 MG TABS 1 TA B PO DAILY VILAZODONE HCL 29796893831 Active Robbie Busby MD Active ZITHROMAX 250 MG TAB 2 po today, then 1 po q days 2-5 AZITHROMYCIN 12899682240 No Longer Active Robbie Busby MD Active [id number] 0.3 MG/24HR PTWK apply 2 patches q week for HTN CLONIDINE HCL 19936554245 Active Robbie Busby MD Active DOXAZOSIN MESYLATE 4 MG TABS Take one by mouth daily DOXAZOSIN MESYLATE 05548865670 Active Robbie Busby MD Active TOPROL XL 200 MG [id number]-PVM Take one by mouth daily METOPROLOL SUCCINATE 30406681866 Active Robbie Busby MD Active VENLAFAXINE HCL ER 150 MG [id number] Take one by mouth daily VENLAFAXINE HCL 96771871396 Active Robbie Busby MD Active LIPITOR 40 MG TABS Take one by mouth daily ATORVASTATIN CALCIUM 42149823505 Active Robbie Busby MD Active ISOSORBIDE DINITRATE 30 MG TABS Take one by mouth daily ISOSORBIDE DINITRATE 30 MG TABS 667914 ISOSORBIDE DINITRATE Inactive NORVASC 10 MG TAB 1 tablet by mouth daily NORVASC 10 MG TAB 322380 AMLODIPINE BESYLATE Inactive AZITHROMYCIN 250 MG ORAL TABS 2 tablets PO today---then, 1 tablet PO daily x 4 more days (and 1 optional refill) AZITHROMYCIN 250 MG ORAL TABS 2277626 AZITHROMYCIN Inactive CHERATUSSIN AC 100-10 MG/5ML ORAL SOLN 7.5 mL PO q 4-6 hrs PRN cough CHERATUSSIN AC 100-10 MG/5ML ORAL SOLN 329848 GUAIFENESIN- CODEINE Inactive VIIBRYD 40 MG TABS take 1 tab po qday for depression. VIIBRYD 40 MG TABS VILAZODONE HCL Inactive HYDRALAZINE HCL 25 MG TABS 1 tablet by mouth tid for hypertension HYDRALAZINE HCL 25 MG TABS 277655 HYDRALAZINE HCL Inactive SPIRONOLACTONE 50 MG TABS 1 tablet by mouth twice a day SPIRONOLACTONE 50 MG TABS 886133 SPIRONOLACTONE Inactive FENOFIBRATE 145 MG TABS Take one by mouth daily FENOFIBRATE 145 MG TABS 678639 FENOFIBRATE Inactive PROTONIX 40 MG SOLR 1 po qday for acid reflux PROTONIX 40 MG SOLR 607229 PANTOPRAZOLE SODIUM Inactive CEFDINIR 300 MG ORAL CAPS Take 1 cap po bid x 10 days CEFDINIR 300 MG ORAL CAPS 037679 CEFDINIR Inactive PREDNISONE 20 MG TAB 1 tablet twice daily for 2 days, then 1 tablet once daily for 2 days PREDNISONE 20 MG TAB 015830 PREDNISONE Inactive NYSTATIN 333486 UNIT/ML M/T SUSP 5mL po QID x 10 days NYSTATIN 040132 UNIT/ML M/T SUSP 495755 NYSTATIN Inactive BETADINE 10 % EXT SOLN wash with solution to treat follicultis BETADINE 10 % EXT SOLN 3037280 POVIDONE-IODINE Inactive TRILEPTAL 150 MG ORAL TABS 1 TAB PO Q HS TRILEPTAL 150 MG ORAL TABS 564662 OXCARBAZEPINE Inactive LAMISIL 125 MG ORAL PACK 1 TAB PO DAILY LAMISIL 125 MG ORAL PACK TERBINAFINE HCL Inactive HYDROCHLOROTHIAZIDE TABS Take one by mouth daily HYDROCHLOROTHIAZIDE TABS HYDROCHLOROTHIAZIDE TABS Inactive HYDROCODONE-ACETAMINOPHEN 5-325 MG TABS 1 tab by mouth BID prn back pain 2013 HYDROCODONE-ACETAMINOPHEN 5-325 MG TABS 528664 HYDROCODONE -ACETAMINOPHEN Inactive HYDRALAZINE HCL 50 MG ORAL TABS TWO BY MOUTH THREE TIMES DAILY HYDRALAZINE HCL 50 MG ORAL TABS 015737 HYDRALAZINE HCL Inactive LEVAQUIN 500 MG TAB 1 tablet by mouth daily for 7 days LEVAQUIN 500 MG TAB 012273 LEVOFLOXACIN Inactive SPIRONOLACTONE 25 MG TAB 4 tablets by mouth daily SPIRONOLACTONE 25 MG TAB 310213 SPIRONOLACTONE Inactive MECLIZINE HCL 25 MG TAB one 4 times a day as needed for dizziness MECLIZINE HCL 25 MG TAB 704172 MECLIZINE HCL Inactive CLONIDINE HCL 0.2 MG ORAL TABS 1 TAB BY MOUTH EVERY 8 HOURS 12/29 CLONIDINE HCL 0.2 MG ORAL TABS 287204 CLONIDINE HCL Inactive CYCLOBENZAPRINE HCL 10 MG TABS 1 tablet by mouth three times daily as needed for muscle spasm/pain for 10 days CYCLOBENZAPRINE HCL 10 MG TABS 167476 CYCLOBENZAPRINE HCL Inactive VITAMIN D3 47214 UNIT CAPS 2 CAPS PO WEEKLY VITAMIN D3 48664 UNIT CAPS CHOLECALCIFEROL Inactive FIORICET 50-300-40 MG ORAL CAPS take 1 tab po qday prn migraines. FIORICET 50-300-40 MG ORAL CAPS 374970 [id number] Inactive FLONASE 50 MCG/ACT SUSP 1 spray each nostril twice daily for allergies and runny nose FLONASE 50 MCG/ACT SUSP 8013050 FLUTICASONE PROPIONATE Inactive LORATADINE 10 MG TABS 1 tablet by mouth daily for congestion and allergies. LORATADINE 10 MG TABS 553325 LORATADINE Inactive NITROSTAT 0.4 MG SUBL PRN NITROSTAT 0.4 MG SUBL 181443 NITROGLYCERIN Inactive ZITHROMAX 250 MG TAB 2 po today, then 1 po q days 2-5 ZITHROMAX 250 MG TAB 2473845 AZITHROMYCIN Inactive TERBINAFINE HCL 250 MG TABS 1 tab po qday for foot infection 2014 TERBINAFINE HCL 250 MG TABS 846949 TERBINAFINE HCL Inactive KEFLEX 500 MG CAP 1 po TID x 10 days KEFLEX 500 MG CAP 941092 CEPHALEXIN Inactive BACTRIM DS 800-160 MG TAB 1 tab by mouth twice daily BACTRIM DS 800-160 MG TAB 574433 TRIMETHOPRIM-SULFAMETHOXAZOLE Inactive PREDNISONE 20 MG TAB take 3 tabs daily for 3 days, 2 tabs daily for 3 days, 1 tab daily for 3 days, 1/2 tab daily for 4 days PREDNISONE 20 MG TAB 928488 PREDNISONE Inactive Advance Directives Directive Description Start [...] AUTO - Chemistry sodium, serum 142 mmol/L 036-867 7036/07/17 carbon dioxide, venous blood 28.2 mmol/L 21.0-32.0 [...] % 11.0-15.0 platelet count 185 THOUSAND/UL 10*3/mm3 615-045 1588/04/14 mean platelet volume 10.9 fL 7.5-12.5 Lab Report: LIPID PANEL, TSH/899, T4, FREE/866 - Chemistry cholesterol, serum 220 mg/dL 998-561 2722/04/14 HDL cholesterol, serum 30 mg/dL > OR=40 triglyceride, serum, fasting 466 mg/dL <150 LDL cholesterol, serum SEE NOTE mg/dL (calc) mg/dL <130 cholesterol/HDL ratio, serum 7.3 (calc) < OR=5.0 Lab Report: MICROALB/CREAT W/RATIO - Chemistry albumin/creatinine ratio, urine < 30 mg/g mg/g{creat} 0-29 Lab Report: MICROALB/CREAT W/RATIO - Lab microalbumin, urine 80 0-19 Lab Report: VITAMIN D, 25-HYDROXY/13544 - Chemistry vitamin D 25-hydroxy, serum 25 ng/mL 30-100 Office Visit: Confusion, dizziness after fall - Basic LDL target level 130 mg/dL Office Visit: Confusion, dizziness after fall - Chemistry HDL cholesterol, serum, target level 40 mg/dL triglyceride, target level 150 mg/dL cholesterol, target level 200 mg/dL Encounters Code Encounter Date Provider Facility CPT-21018 Level 3 Est. Patient 09:00:37 CDT Rober Rodríguez [facility] CPT-86648 Level 3 Est. Patient 16:07:10 CDT Robbie Busby MD [facility] CPT-71370 Level 4 Est. Patient 11:56:16 CDT Erin Garsia [facility] CPT-52328 Level 3 Est. Patient 17:48:02 CDT Robbie Busby MD [facility] CPT-84040 Level 4 Est. Patient 12:00:49 AUTOMOBILE DAMAGE APPRAISER Rober Rodríguez [facility] CPT-67088 Level 3 Est. Patient 09:16:37 CDT Robbie Busby MD [facility] CPT-89012 Level 3 Est. Patient 19:38:43 CDT Robbie Busby MD [facility] CPT-28102 Level 3 Est. Patient 11:53:38 CDT Robbie Busby MD [facility] CPT-26817 Level 4 Est. Patient 12:52:22 CDT Rober Rodríguez [facility] CPT-07776 Level 4 Est. Patient 22:55:17 CDT Robbie Busby MD [facility] CPT-69641 Level 3 Est. Patient 12:38:24 CDT Desmond Diaz DO [facility] CPT-44962 Level 4 Est. Patient 11:25:03 AUTOMOBILE DAMAGE APPRAISER Robbie Busby MD [facility] CPT-73695 Level 4 Est. Patient 14:50:10 CDT Robbie Busby MD [facility] CPT-02358 Level 4 Est. Patient 23:30:43 CDT Robbie Busby MD [facility] CPT-04791 Level 4 Est. Patient 10:30:43 CDT Robbie Busby MD [facility] CPT-37977 Level 3 Est. Patient 17:08:12 CDT Alex Shaw [facility] CPT-35225 Level 4 Est. Patient 17:51:38 CDT Robbie Busby MD [facility] CPT-90543 Level 4 Est. Patient 14:00:21 CDT Robbie Busby MD [facility] CPT-50910 Level 4 Est. Patient 12:46:48 CDT Robbie Busby MD [facility] CPT-41918 Level 4 Est. Patient 13:34:33 CDT Robbie Busby MD [facility] CPT-54833 Level 4 Est. Patient 16:58:28 CDT Robbie Busby MD [facility] CPT-63163 Level 3 Est. Patient 19:36:53 CDT Alex Shaw [facility] CPT-63183 Level 3 Est. Patient 12:58:15 CDT Robbie Busby MD [facility] Procedures Code Procedure Name Date Entry Date Standard Description CPT-05243 Venipuncture Draw Fee 14:39:06 CDT CPT-00981 Ribs unilateral 2V - XRAY USE ONLY 12:10:11 CDT CPT-12295 First Vx - Ix admin for Medicare patients 16:32:53 CDT CPT-05074 Boostrix Intramuscular Suspension 5-2.5-18.5 16:32:53 CDT CPT-30706 TB Skin Test 11:42:28 CDT CPT-45165 Tdap 7yrs or > 11:42:28 CDT CPT-J0696 Rocephin 1000 mg (Ceftriaxone) 17:43:43 AUTOMOBILE DAMAGE APPRAISER CPT-J1040 Depo Medrol 80 mg (Methyl Prednisolone Acetate) 17:43: 43 AUTOMOBILE DAMAGE APPRAISER CPT-J1100 Decadron 8mg (Dexamethasone) 17:43:42 AUTOMOBILE DAMAGE APPRAISER CPT-10208 Abx/Therapy Injection 17:43:42 AUTOMOBILE DAMAGE APPRAISER CPT-80164 Abx/Therapy Injection 17:43:42 AUTOMOBILE DAMAGE APPRAISER CPT-J1040 Depo Medrol 80 mg (Methyl Prednisolone Acetate) 09:43: 34 AUTOMOBILE DAMAGE APPRAISER CPT-J1100 Decadron 8mg (Dexamethasone) 09:43:34 AUTOMOBILE DAMAGE APPRAISER CPT-J0696 Rocephin 1gm Inj Solr 09:43:34 AUTOMOBILE DAMAGE APPRAISER CPT-37034 Wound Culture - LAB USE ONLY 14:00:21 CDT CPT-I/D I/D Abscess 09:16:37 CDT CPT-96952 Venipuncture Draw Fee 15:20:23 CDT CPT-07889 Microalbumin - LAB USE ONLY 16:02:19 CDT CPT-81395 CBC - LAB USE ONLY 16:02:19 CDT CPT-16451 Venipuncture Draw Fee 16:02:19 CDT CPT-G0438 Initial Annual Wellness Exam 08:10:28 CDT CPT-87575 Venipuncture Draw Fee 13:07:17 CDT CPT-G0008 Administration of Influenza Virus Vaccine 16:09:59 CDT CPT-21257 Fluzone Quadrivalent Intramuscular Suspension 0.5 ML 16: 09:59 CDT CPT-94979 Spec Collection and Handling Fee 15:05:50 CDT
--- OUTSIDE RECORDS SUMMARY | 2018-04-18 11:54 | XMS REPORT | Clinical Summary ---
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 Rober Rodríguez HARP REGULATOR Other malignant secondary hypertension Tachycardia 785.0 Active [...] muscle spasm/pain for 10 days CYCLOBENZAPRINE HCL 36781146161 Active Erin Garsia APRN Active PREDNISONE 20 MG TAB take 3 tabs daily for 3 days, 2 tabs daily for 3 days, 1 tab daily for 3 days, 1/2 tab daily for 4 days PREDNISONE 07919233703 No Longer Active Erin Garsia APRN Active CLONIDINE HCL 0.2 MG ORAL TABS 1 TAB BY MOUTH EVERY 8 HOURS 12/29 CLONIDINE HCL 71313741924 No Longer Active Erin Garsia APRN Active MECLIZINE HCL 25 MG TAB one 4 times a day as needed for dizziness MECLIZINE HCL 65889621804 No Longer Active Erin Garsia APRN Active SPIRONOLACTONE 25 MG TAB 4 tablets by mouth daily SPIRONOLACTONE 85963880641 No Longer Active Erin Garsia APRN Active LEVAQUIN 500 MG TAB 1 tablet by mouth daily for 7 days LEVOFLOXACIN 85189691623 No Longer Active Erin Garsia APRN Active BACTRIM DS 800-160 MG TAB 1 tab by mouth twice daily TRIMETHOPRIM-SULFAMETHOXAZOLE 54436664874 No Longer Active Robbie Busby MD Active HYDRALAZINE HCL 50 MG ORAL TABS TWO BY MOUTH THREE TIMES DAILY HYDRALAZINE HCL 20816960713 No Longer Active Jillina Frazell HARP REGULATOR Active HYDROCODONE-ACETAMINOPHEN 5-325 MG TABS 1 tab by mouth BID prn back pain 2013 HYDROCODONE-ACETAMINOPHEN 61964073161 No Longer Active Jillina Frazell HARP REGULATOR Active HYDROCHLOROTHIAZIDE TABS Take one by mouth daily HYDROCHLOROTHIAZIDE TABS 66832612555 No Longer Active Jillina Frazell HARP REGULATOR Active LAMISIL 125 MG ORAL PACK 1 TAB PO DAILY TERBINAFINE HCL 38213703919 No Longer Active Jillina Frazell HARP REGULATOR Active TRILEPTAL 150 MG ORAL TABS 1 TAB PO Q HS OXCARBAZEPINE 00140830710 No Longer Active Jillina Frazell HARP REGULATOR Active BETADINE 10 % EXT SOLN wash with solution to treat follicultis POVIDONE-IODINE 84970507664 No Longer Active Andrellina Zulemal HARP REGULATOR Active NYSTATIN 190545 UNIT/ML M/T SUSP 5mL po QID x 10 days NYSTATIN 04372978198 No Longer Active Erin Garsia APRN Active PREDNISONE 20 MG TAB 1 tablet twice daily for 2 days, then 1 tablet once daily for 2 days PREDNISONE 66675820500 No Longer Active Robbie Busby MD Active CEFDINIR 300 MG ORAL CAPS Take 1 cap po bid x 10 days CEFDINIR 70033539827 No Longer Active Robbie Busby MD Active AMLODIPINE BESYLATE 10 MG TABS 1 tablet by mouth daily AMLODIPINE BESYLATE 30058771483 Active Robbie Busby MD Active CARVEDILOL 25 MG TABS 1 & 1/2 TAB po BID CARVEDILOL 98441602034 Active Erin Garsia APRN Active VITAMIN D3 55514 UNIT CAPS 2 CAPS PO WEEKLY CHOLECALCIFEROL 99394232654 Active Erin Garsia APRN Active NEXIUM 40 MG CPDR 1 cap by mouth daily ESOMEPRAZOLE MAGNESIUM 54968330215 Active Robbie Busby MD Active PROTONIX 40 MG SOLR 1 po qday for acid reflux PANTOPRAZOLE SODIUM 14777954326 No Longer Active Gali Negro Active KEFLEX 500 MG CAP 1 po TID x 10 days CEPHALEXIN 53704996956 No Longer Active Robbie Busby MD Active FIORICET 50-300-40 MG ORAL CAPS take 1 tab po qday prn migraines. [id number] 92978808155 Active Robbie Busby MD Active TOPIRAMATE 50 MG ORAL TABS take 1 tab po BID for migraines. TOPIRAMATE 45883020603 Active Robbie Busby MD Active TEMAZEPAM 15 MG ORAL CAPS 1 TAB PO Q HS TEMAZEPAM 94986137952 Active Robbie Busby MD Active ALPRAZOLAM 2 MG ORAL TABS 1 TAB PO BID ALPRAZOLAM 06177350594 Active Robbie Busby MD Active FENOFIBRATE 145 MG TABS Take one by mouth daily FENOFIBRATE 13308246993 No Longer Active Robbie Busby MD Active SPIRONOLACTONE 50 MG TABS 1 tablet by mouth twice a day SPIRONOLACTONE 38949601328 No Longer Active Robbie Busby MD Active HYDRALAZINE HCL 25 MG TABS 1 tablet by mouth tid for hypertension HYDRALAZINE HCL 68888039454 No Longer Active Robbie Busby MD Active VIIBRYD 40 MG TABS take 1 tab po qday for depression. VILAZODONE HCL 79197192815 No Longer Active Robbie Busby MD Active TERBINAFINE HCL 250 MG TABS 1 tab po qday for foot infection 2014 TERBINAFINE HCL 46740066875 No Longer Active Robbie Busby MD Active GABAPENTIN 300 MG CAPS 1 po q hs for nerve pain GABAPENTIN 50655985053 Active Robbie Busby MD Active FLONASE 50 MCG/ACT SUSP 1 spray each nostril twice daily for allergies and runny nose FLUTICASONE PROPIONATE 67116271433 Active Robbie Busby MD Active CHERATUSSIN AC 100-10 MG/5ML ORAL SOLN 7.5 mL PO q 4-6 hrs PRN cough GUAIFENESIN-CODEINE 97440163843 No Longer Active Robbie Busby MD Active AZITHROMYCIN 250 MG ORAL TABS 2 tablets PO today---then, 1 tablet PO daily x 4 more days (and 1 optional refill) AZITHROMYCIN 63275802607 No Longer Active Robbie Busby MD Active NORVASC 10 MG TAB 1 tablet by mouth daily AMLODIPINE BESYLATE 49784603645 No Longer Active Alex ALVAREZ Active IMDUR 60 MG TAB CR take 1 tab po qday for blood pressure ISOSORBIDE MONONITRATE Active Robbie Busby MD Active ISOSORBIDE DINITRATE 30 MG TABS Take one by mouth daily ISOSORBIDE DINITRATE 88014879268 No Longer Active Robbie Busby MD Active VIIBRYD 40 MG TABS 1 TA B PO DAILY VILAZODONE HCL 02519654018 Active Robbie Busby MD Active LORATADINE 10 MG TABS 1 tablet by mouth daily for congestion and allergies. LORATADINE 83343107332 Active Robbie Busby MD Active ZITHROMAX 250 MG TAB 2 po today, then 1 po q days 2-5 AZITHROMYCIN 41944831362 No Longer Active Robbie Busby MD Active [id number] 0.3 MG/24HR PTWK apply 2 patches q week for HTN CLONIDINE HCL 71317005098 Active Robbie Busby MD Active NITROSTAT 0.4 MG SUBL PRN NITROGLYCERIN 34948157641 Active Robbie Busby MD Active DOXAZOSIN MESYLATE 4 MG TABS Take one by mouth daily DOXAZOSIN MESYLATE 62741646165 Active Erin Ady HARP REGULATOR Active TOPROL XL 200 MG [id number] Take one by mouth daily METOPROLOL SUCCINATE 45888441332 Active Robbie Busby MD Active VENLAFAXINE HCL ER 150 MG [id number] Take one by mouth daily VENLAFAXINE HCL 43831317486 Active Robbie Busby MD Active LIPITOR 40 MG TABS Take one by mouth daily ATORVASTATIN CALCIUM 33087945547 Active Robbie Busby MD Active ISOSORBIDE DINITRATE 30 MG TABS Take one by mouth daily ISOSORBIDE DINITRATE 30 MG TABS 750228 ISOSORBIDE DINITRATE Inactive NORVASC 10 MG TAB 1 tablet by mouth daily NORVASC 10 MG TAB 090075 AMLODIPINE BESYLATE Inactive AZITHROMYCIN 250 MG ORAL TABS 2 tablets PO today---then, 1 tablet PO daily x 4 more days (and 1 optional refill) AZITHROMYCIN 250 MG ORAL TABS 1033230 AZITHROMYCIN Inactive CHERATUSSIN AC 100-10 MG/5ML ORAL SOLN 7.5 mL PO q 4-6 hrs PRN cough CHERATUSSIN AC 100-10 MG/5ML ORAL SOLN 570866 GUAIFENESIN- CODEINE Inactive VIIBRYD 40 MG TABS take 1 tab po qday for depression. VIIBRYD 40 MG TABS VILAZODONE HCL Inactive HYDRALAZINE HCL 25 MG TABS 1 tablet by mouth tid for hypertension HYDRALAZINE HCL 25 MG TABS 095416 HYDRALAZINE HCL Inactive SPIRONOLACTONE 50 MG TABS 1 tablet by mouth twice a day SPIRONOLACTONE 50 MG TABS 741297 SPIRONOLACTONE Inactive FENOFIBRATE 145 MG TABS Take one by mouth daily FENOFIBRATE 145 MG TABS 150200 FENOFIBRATE Inactive PROTONIX 40 MG SOLR 1 po qday for acid reflux PROTONIX 40 MG SOLR 414384 PANTOPRAZOLE SODIUM Inactive CEFDINIR 300 MG ORAL CAPS Take 1 cap po bid x 10 days CEFDINIR 300 MG ORAL CAPS 086804 CEFDINIR Inactive PREDNISONE 20 MG TAB 1 tablet twice daily for 2 days, then 1 tablet once daily for 2 days PREDNISONE 20 MG TAB 013753 PREDNISONE Inactive NYSTATIN 730666 UNIT/ML M/T SUSP 5mL po QID x 10 days NYSTATIN 948830 UNIT/ML M/T SUSP 466685 NYSTATIN Inactive BETADINE 10 % EXT SOLN wash with solution to treat follicultis BETADINE 10 % EXT SOLN 0483236 POVIDONE-IODINE Inactive TRILEPTAL 150 MG ORAL TABS 1 TAB PO Q HS TRILEPTAL 150 MG ORAL TABS 914337 OXCARBAZEPINE Inactive LAMISIL 125 MG ORAL PACK 1 TAB PO DAILY LAMISIL 125 MG ORAL PACK TERBINAFINE HCL Inactive HYDROCHLOROTHIAZIDE TABS Take one by mouth daily HYDROCHLOROTHIAZIDE TABS HYDROCHLOROTHIAZIDE TABS Inactive HYDROCODONE-ACETAMINOPHEN 5-325 MG TABS 1 tab by mouth BID prn back pain 2013 HYDROCODONE-ACETAMINOPHEN 5-325 MG TABS 792237 HYDROCODONE -ACETAMINOPHEN Inactive HYDRALAZINE HCL 50 MG ORAL TABS TWO BY MOUTH THREE TIMES DAILY HYDRALAZINE HCL 50 MG ORAL TABS 236718 HYDRALAZINE HCL Inactive LEVAQUIN 500 MG TAB 1 tablet by mouth daily for 7 days LEVAQUIN 500 MG TAB 292853 LEVOFLOXACIN Inactive SPIRONOLACTONE 25 MG TAB 4 tablets by mouth daily SPIRONOLACTONE 25 MG TAB 025609 SPIRONOLACTONE Inactive MECLIZINE HCL 25 MG TAB one 4 times a day as needed for dizziness MECLIZINE HCL 25 MG TAB 857938 MECLIZINE HCL Inactive CLONIDINE HCL 0.2 MG ORAL TABS 1 TAB BY MOUTH EVERY 8 HOURS 12/29 CLONIDINE HCL 0.2 MG ORAL TABS 490358 CLONIDINE HCL Inactive ZITHROMAX 250 MG TAB 2 po today, then 1 po q days 2-5 ZITHROMAX 250 MG TAB 9217472 AZITHROMYCIN Inactive TERBINAFINE HCL 250 MG TABS 1 tab po qday for foot infection 2014 TERBINAFINE HCL 250 MG TABS 211401 TERBINAFINE HCL Inactive KEFLEX 500 MG CAP 1 po TID x 10 days KEFLEX 500 MG CAP 673960 CEPHALEXIN Inactive BACTRIM DS 800-160 MG TAB 1 tab by mouth twice daily BACTRIM DS 800-160 MG TAB 463010 TRIMETHOPRIM-SULFAMETHOXAZOLE Inactive PREDNISONE 20 MG TAB take 3 tabs daily for 3 days, 2 tabs daily for 3 days, 1 tab daily for 3 days, 1/2 tab daily for 4 days PREDNISONE 20 MG TAB 538472 PREDNISONE Inactive Advance Directives Directive Description Start [...] % 11.0-15.0 platelet count 185 THOUSAND/UL 10*3/mm3 545-244 5223/04/14 mean platelet volume 10.9 fL 7.5-12.5 Lab Report: HEPATITIS B SAB/Immune Status, RUBELLA IGG AB(Immune Status) - Serology rubella antibody, serum, IgG 2.06 Lab Report: LIPID PANEL, TSH/899, T4, FREE/866 - Chemistry cholesterol, serum 220 mg/dL 953-432 8281/04/14 HDL cholesterol, serum 30 mg/dL > OR=40 triglyceride, serum, fasting 466 mg/dL <150 LDL cholesterol, serum SEE NOTE mg/dL (calc) mg/dL <130 cholesterol/HDL ratio, serum 7.3 (calc) < OR=5.0 Lab Report: MICROALB/CREAT W/RATIO - Chemistry albumin/creatinine ratio, urine < 30 mg/g mg/g{creat} 0-29 Lab Report: MICROALB/CREAT W/RATIO - Lab microalbumin, urine 80 0-19 Lab Report: VITAMIN D, 25-HYDROXY/55240 - Chemistry vitamin D 25-hydroxy, serum 23 ng/mL 30-100 Encounters Code Encounter Date Provider Facility CPT-70282 Level 4 Est. Patient 12:00:49 [employer] Rober Rodríguez [facility] [place] CPT-98553 Level 3 Est. Patient 09:16:37 CDT Robbie Busby MD [facility] CPT-64104 Level 3 Est. Patient 19:38:43 CDT Robbie Busby MD [facility] CPT-87695 Level 3 Est. Patient 11:53:38 CDT Robbie Busby MD [facility] CPT-32185 Level 4 Est. Patient 12:52:22 CDT Rober Rodríguez [facility] CPT-36219 Level 4 Est. Patient 22:55:17 CDT Robbie Busby MD [facility] CPT-26048 Level 3 Est. Patient 12:38:24 CDT Desmond Diaz DO [facility] CPT-15403 Level 4 Est. Patient 11:25:03 [employer] Robbie Busby MD [facility] CPT-01009 Level 4 Est. Patient 14:50:10 CDT Robbie Busby MD [facility] CPT-51208 Level 4 Est. Patient 23:30:43 CDT Robbie Busby MD [facility] CPT-24948 Level 4 Est. Patient 10:30:43 CDT Robbie Busby MD [facility] CPT-11019 Level 3 Est. Patient 17:08:12 CDT Alex ALVAREZ [facility] CPT-01694 Level 4 Est. Patient 17:51:38 CDT Robbie Busby MD [facility] CPT-60929 Level 4 Est. Patient 14:00:21 CDT Robbie Busby MD [facility] CPT-74039 Level 4 Est. Patient 12:46:48 CDT Robbie Busby MD [facility] CPT-48140 Level 4 Est. Patient 13:34:33 CDT Robbie Busby MD [facility] CPT-53459 Level 4 Est. Patient 16:58:28 CDT Robbie Busby MD [facility] CPT-25116 Level 3 Est. Patient 19:36:53 CDT Alex ALVAREZ [facility] CPT-78973 Level 3 Est. Patient 12:58:15 CDT Robbie Busby MD [facility] Procedures Code Procedure Name Date Entry Date Standard Description CPT-J0696 Rocephin 1000 mg (Ceftriaxone) 17:43:43 [employer] CPT-J1040 Depo Medrol 80 mg (Methyl Prednisolone Acetate) 17:43: 43 [employer] CPT-J1100 Decadron 8mg (Dexamethasone) 17:43:42 [employer] CPT-08563 Abx/Therapy Injection 17:43:42 [employer] CPT-38447 Abx/Therapy Injection 17:43:42 [employer] CPT-J1040 Depo Medrol 80 mg (Methyl Prednisolone Acetate) 09:43: 34 [employer] CPT-J1100 Decadron 8mg (Dexamethasone) 09:43:34 [employer] CPT-J0696 Rocephin 1gm Inj Solr 09:43:34 [employer] CPT-92549 Wound Culture - LAB USE ONLY 14:00:21 CDT CPT-I/D I/D Abscess 09:16:37 CDT CPT-98317 Venipuncture Draw Fee 15:20:23 CDT CPT-40334 Microalbumin - LAB USE ONLY 16:02:19 CDT CPT-16692 CBC - LAB USE ONLY 16:02:19 CDT CPT-51426 Venipuncture Draw Fee 16:02:19 CDT CPT-G0438 Initial Annual Wellness Exam 08:10:28 CDT CPT-03538 Venipuncture Draw Fee 13:07:17 CDT CPT-G0008 Administration of Influenza Virus Vaccine 16:09:59 CDT CPT-19875 Fluzone Quadrivalent Intramuscular Suspension 0.5 ML 16: 09:59 CDT CPT-61145 Spec Collection and Handling Fee 15:05:50 CDT
--- OUTSIDE RECORDS SUMMARY | 2018-04-18 11:55 | XMS REPORT | Clinical Summary ---
Author Author Admin, AKUA Organization [employer] Address Unknown Phone Unavailable Allergies, Adverse Reactions, [...] 1 tab by mouth twice daily TRIMETHOPRIM-SULFAMETHOXAZOLE 99321175441 No Longer Active Robbie Busby MD Active SPIRONOLACTONE 25 MG TAB 4 tablets by mouth daily SPIRONOLACTONE 64097029421 Active Robbie Busby MD Active HYDRALAZINE HCL 50 MG ORAL TABS TWO BY MOUTH THREE TIMES DAILY HYDRALAZINE HCL 73163612150 No Longer Active Jillina Frazell GEOTHERMAL SYSTEM 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 HYDROCODONE-ACETAMINOPHEN 5-325 MG TABS 1 tab by mouth BID prn back pain 2013 HYDROCODONE-ACETAMINOPHEN 50356142576 No Longer Active Jillina Frazell GEOTHERMAL SYSTEM 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 HYDROCHLOROTHIAZIDE TABS Take one by mouth daily HYDROCHLOROTHIAZIDE TABS 46560598196 No Longer Active Jillina Frazell GEOTHERMAL SYSTEM 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 LAMISIL 125 MG ORAL PACK 1 TAB PO DAILY TERBINAFINE HCL 86655183239 No Longer Active Jillina Frazell GEOTHERMAL SYSTEM 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 TRILEPTAL 150 MG ORAL TABS 1 TAB PO Q HS OXCARBAZEPINE 80765742615 No Longer Active Jillina Frazell GEOTHERMAL SYSTEM 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 BETADINE 10 % EXT SOLN wash with solution to treat follicultis POVIDONE-IODINE 44344114339 No Longer Active Jillina Frazell GEOTHERMAL SYSTEM 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 NYSTATIN 272848 UNIT/ML M/T SUSP 5mL po QID x 10 days NYSTATIN 17908741636 No Longer Active Erin Garsia APRN Active PREDNISONE 20 MG TAB 1 tablet twice daily for 2 days, then 1 tablet once daily for 2 days PREDNISONE 61795631568 No Longer Active Robbie Busby MD Active CEFDINIR 300 MG ORAL CAPS Take 1 cap po bid x 10 days CEFDINIR 72448586663 No Longer Active Robbie Busby MD Active AMLODIPINE BESYLATE 10 MG TABS 1 tablet by mouth daily AMLODIPINE BESYLATE 48540267431 Active Robbie Busby MD Active CARVEDILOL 25 MG TABS 1 & 1/2 TAB po BID CARVEDILOL 87298625083 Active Erin Garsia APRN Active VITAMIN D3 86519 UNIT CAPS 2 CAPS PO WEEKLY CHOLECALCIFEROL 27817076330 Active Erin Garsia APRN Active NEXIUM 40 MG CPDR 1 cap by mouth daily ESOMEPRAZOLE MAGNESIUM 24437528167 Active Gali Negro Active PROTONIX 40 MG SOLR 1 po qday for acid reflux PANTOPRAZOLE SODIUM 82723137466 No Longer Active Gali Negro Active KEFLEX 500 MG CAP 1 po TID x 10 days CEPHALEXIN 28169540986 No Longer Active Robbie Busby MD Active FIORICET 50-300-40 MG ORAL CAPS take 1 tab po qday prn migraines. [id number] 74484117356 Active Robbie Busby MD Active TOPIRAMATE 50 MG ORAL TABS take 1 tab po BID for migraines. TOPIRAMATE 57497537572 Active Robbie Busby MD Active MECLIZINE HCL 25 MG TAB one 4 times a day as needed for dizziness MECLIZINE HCL 41546885113 Active Robbie Busby MD Active TEMAZEPAM 15 MG ORAL CAPS 1 TAB PO Q HS TEMAZEPAM 60437373224 Active Robbie Busby MD Active ALPRAZOLAM 2 MG ORAL TABS 1 TAB PO BID ALPRAZOLAM 40038120084 Active Robbie Busby MD Active FENOFIBRATE 145 MG TABS Take one by mouth daily FENOFIBRATE 32060754804 No Longer Active Robbie Busby MD Active SPIRONOLACTONE 50 MG TABS 1 tablet by mouth twice a day SPIRONOLACTONE 21610940090 No Longer Active Robbie Busby MD Active HYDRALAZINE HCL 25 MG TABS 1 tablet by mouth tid for hypertension HYDRALAZINE HCL 76803412480 No Longer Active Robbie Busby MD Active VIIBRYD 40 MG TABS take 1 tab po qday for depression. VILAZODONE HCL 18052601056 No Longer Active Robbie Busby MD Active TERBINAFINE HCL 250 MG TABS 1 tab po qday for foot infection 2014 TERBINAFINE HCL 40351097236 No Longer Active Robbie Busby MD Active GABAPENTIN 300 MG CAPS 1 po q hs for nerve pain GABAPENTIN 91930167386 Active Robbie Busby MD Active FLONASE 50 MCG/ACT SUSP 1 spray each nostril twice daily for allergies and runny nose FLUTICASONE PROPIONATE 34605360157 Active Robbie Busby MD Active CHERATUSSIN AC 100-10 MG/5ML ORAL SOLN 7.5 mL PO q 4-6 hrs PRN cough GUAIFENESIN-CODEINE 52251801531 No Longer Active Robbie Busby MD Active AZITHROMYCIN 250 MG ORAL TABS 2 tablets PO today---then, 1 tablet PO daily x 4 more days (and 1 optional refill) AZITHROMYCIN 55818750356 No Longer Active Robbie Busby MD Active CLONIDINE HCL 0.2 MG ORAL TABS 1 TAB BY MOUTH EVERY 8 HOURS CLONIDINE HCL 42782621157 Active Erin Garsia APRN Active NORVASC 10 MG TAB 1 tablet by mouth daily AMLODIPINE BESYLATE 88286873648 No Longer Active Alex ALVAREZ Active IMDUR 60 MG TAB CR take 1 tab po qday for blood pressure ISOSORBIDE MONONITRATE Active Robbie Busby MD Active ISOSORBIDE DINITRATE 30 MG TABS Take one by mouth daily ISOSORBIDE DINITRATE 23742101637 No Longer Active Robbie Busby MD Active VIIBRYD 40 MG TABS 1 TA B PO DAILY VILAZODONE HCL 71485206833 Active Robbie Busby MD Active LORATADINE 10 MG TABS 1 tablet by mouth daily for congestion and allergies. LORATADINE 04520990319 Active Robbie Busby MD Active ZITHROMAX 250 MG TAB 2 po today, then 1 po q days 2-5 AZITHROMYCIN 87281347201 No Longer Active Robbie Busby MD Active GWYHQPUH-RBM-4 0.3 MG/24HR PTWK apply 2 patches q week for HTN CLONIDINE HCL 80151839515 Active Robbie Busby MD Active NITROSTAT 0.4 MG SUBL PRN NITROGLYCERIN 42379087140 Active Robbie Busby MD Active DOXAZOSIN MESYLATE 4 MG TABS Take one by mouth daily DOXAZOSIN MESYLATE 79594882248 Active Robbie Busby MD Active TOPROL XL 200 MG [id number] Take one by mouth daily METOPROLOL SUCCINATE 97818448348 Active Robbie Busby MD Active VENLAFAXINE HCL ER 150 MG [id number]-CVJ Take one by mouth daily VENLAFAXINE HCL 69482131013 Active Robbie Busby MD Active LIPITOR 40 MG TABS Take one by mouth daily ATORVASTATIN CALCIUM 88925430607 Active Robbie Busby MD Active ISOSORBIDE DINITRATE 30 MG TABS Take one by mouth daily ISOSORBIDE DINITRATE 30 MG TABS 309917 ISOSORBIDE DINITRATE Inactive NORVASC 10 MG TAB 1 tablet by mouth daily NORVASC 10 MG TAB 909206 AMLODIPINE BESYLATE Inactive AZITHROMYCIN 250 MG ORAL TABS 2 tablets PO today---then, 1 tablet PO daily x 4 more days (and 1 optional refill) AZITHROMYCIN 250 MG ORAL TABS 6719723 AZITHROMYCIN Inactive CHERATUSSIN AC 100-10 MG/5ML ORAL SOLN 7.5 mL PO q 4-6 hrs PRN cough CHERATUSSIN AC 100-10 MG/5ML ORAL SOLN 547852 GUAIFENESIN- CODEINE Inactive VIIBRYD 40 MG TABS take 1 tab po qday for depression. VIIBRYD 40 MG TABS VILAZODONE HCL Inactive HYDRALAZINE HCL 25 MG TABS 1 tablet by mouth tid for hypertension HYDRALAZINE HCL 25 MG TABS 594707 HYDRALAZINE HCL Inactive SPIRONOLACTONE 50 MG TABS 1 tablet by mouth twice a day SPIRONOLACTONE 50 MG TABS 156224 SPIRONOLACTONE Inactive FENOFIBRATE 145 MG TABS Take one by mouth daily FENOFIBRATE 145 MG TABS 517030 FENOFIBRATE Inactive PROTONIX 40 MG SOLR 1 po qday for acid reflux PROTONIX 40 MG SOLR 059966 PANTOPRAZOLE SODIUM Inactive CEFDINIR 300 MG ORAL CAPS Take 1 cap po bid x 10 days CEFDINIR 300 MG ORAL CAPS 483895 CEFDINIR Inactive PREDNISONE 20 MG TAB 1 tablet twice daily for 2 days, then 1 tablet once daily for 2 days PREDNISONE 20 MG TAB 979130 PREDNISONE Inactive NYSTATIN 193880 UNIT/ML M/T SUSP 5mL po QID x 10 days NYSTATIN 695960 UNIT/ML M/T SUSP 121442 NYSTATIN Inactive BETADINE 10 % EXT SOLN wash with solution to treat follicultis BETADINE 10 % EXT SOLN 4297399 POVIDONE-IODINE Inactive TRILEPTAL 150 MG ORAL TABS 1 TAB PO Q HS TRILEPTAL 150 MG ORAL TABS 901895 OXCARBAZEPINE Inactive LAMISIL 125 MG ORAL PACK 1 TAB PO DAILY LAMISIL 125 MG ORAL PACK TERBINAFINE HCL Inactive HYDROCHLOROTHIAZIDE TABS Take one by mouth daily HYDROCHLOROTHIAZIDE TABS HYDROCHLOROTHIAZIDE TABS Inactive HYDROCODONE-ACETAMINOPHEN 5-325 MG TABS 1 tab by mouth BID prn back pain 2013 HYDROCODONE-ACETAMINOPHEN 5-325 MG TABS 144923 HYDROCODONE -ACETAMINOPHEN Inactive HYDRALAZINE HCL 50 MG ORAL TABS TWO BY MOUTH THREE TIMES DAILY HYDRALAZINE HCL 50 MG ORAL TABS 327779 HYDRALAZINE HCL Inactive ZITHROMAX 250 MG TAB 2 po today, then 1 po q days 2-5 ZITHROMAX 250 MG TAB 0859222 AZITHROMYCIN Inactive TERBINAFINE HCL 250 MG TABS 1 tab po qday for foot infection 2014 TERBINAFINE HCL 250 MG TABS 212060 TERBINAFINE HCL Inactive KEFLEX 500 MG CAP 1 po TID x 10 days KEFLEX 500 MG CAP 592424 CEPHALEXIN Inactive BACTRIM DS 800-160 MG TAB 1 tab by mouth twice daily BACTRIM DS 800-160 MG TAB 650580 TRIMETHOPRIM-SULFAMETHOXAZOLE Inactive Advance Directives Directive Description Start [...] Acid - Chemistry sodium, serum 139 mmol/L 540-864 7801/04/22 carbon dioxide, venous blood 29.4 mmol/L 21.0-32.0 [...] to Follow Negative Lab Report: VITAMIN D, 25-HYDROXY/17252 - Chemistry vitamin D 25-hydroxy, serum 23 ng/mL 30-100 Encounters Code Encounter Date Provider Facility [facility]-[id number] Level 3 Est. Patient 09:16:37 CDT Robbie Busby MD [facility]-54282 Level 3 Est. Patient 19:38:43 CDT Robbie Busby MD [facility]-69444 Level 3 Est. Patient 11:53:38 CDT Robbie Busby MD [facility]-44220 Level 4 Est. Patient 12:52:22 CDT Rober Rodríguez APRN [facility]-46023 Level 4 Est. Patient 22:55:17 CDT Robbie Busby MD [facility]-84217 Level 3 Est. Patient 12:38:24 CDT Desmond Diaz DO [facility]-34979 Level 4 Est. 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 Patient 14:50:10 CDT Robbie Busby MD [facility] CPT-60342 Level 4 Est. Patient 23:30:43 CDT Robbie Busby MD [facility]-18915 Level 4 Est. Patient 10:30:43 CDT Robbie Busby MD [facility] CPT-78141 Level 3 Est. Patient 17:08:12 CDT Alex ALVAREZ [facility]-34498 Level 4 Est. Patient 17:51:38 CDT Robbie Busby MD [facility]-43858 Level 4 Est. Patient 14:00:21 CDT Robbie Busby MD [facility]-97061 Level 4 Est. Patient 12:46:48 CDT Robbie Busby MD [facility] CPT-54729 Level 4 Est. Patient 13:34:33 CDT Robbie Busby MD [facility] CPT-67959 Level 4 Est. Patient 16:58:28 CDT Robbie Busby MD [facility] CPT-49306 Level 3 Est. Patient 19:36:53 CDT Alex ALVAREZ [facility] CPT-37687 Level 3 Est. Patient 12:58:15 CDT Robbie Busby MD [facility] Procedures Code Procedure Name Date Entry Date Standard Description CPT-96794 Wound Culture - LAB USE ONLY 14:00:21 CDT CPT-I/D I/D Abscess 09:16:37 CDT CPT-12570 Venipuncture Draw Fee 15:20:23 CDT CPT-24824 Microalbumin - LAB USE ONLY 16:02:19 CDT CPT-82309 CBC - LAB USE ONLY 16:02:19 CDT CPT-55404 Venipuncture Draw Fee 16:02:19 CDT CPT-G0438 Initial Annual Wellness Exam 08:10:28 CDT CPT-75078 Venipuncture Draw Fee 13:07:17 CDT CPT-G0008 Administration of Influenza Virus Vaccine 16:09:59 CDT CPT-44832 Fluzone Quadrivalent Intramuscular Suspension 0.5 ML 16: 09:59 CDT CPT-50259 Spec Collection and Handling Fee 15:05:50 CDT
--- OUTSIDE RECORDS SUMMARY | 2018-04-18 11:55 | XMS REPORT | Clinical Summary ---
Author Author Admin, E Organization [facility] Address Unknown Phone Unavailable Allergies, Adverse Reactions, [...] muscle spasm/pain for 10 days CYCLOBENZAPRINE HCL 81151930215 Active Erin Garsia APRN Active PREDNISONE 20 MG TAB take 3 tabs daily for 3 days, 2 tabs daily for 3 days, 1 tab daily for 3 days, 1/2 tab daily for 4 days PREDNISONE 34049701213 No Longer Active Erin Garsia APRN Active CLONIDINE HCL 0.2 MG ORAL TABS 1 TAB BY MOUTH EVERY 8 HOURS 12/29 CLONIDINE HCL 84442344298 No Longer Active Erin Garsia APRN Active MECLIZINE HCL 25 MG TAB one 4 times a day as needed for dizziness MECLIZINE HCL 15892837730 No Longer Active Erin Garsia APRN Active SPIRONOLACTONE 25 MG TAB 4 tablets by mouth daily SPIRONOLACTONE 16847185877 No Longer Active Erin Garsia APRN Active LEVAQUIN 500 MG TAB 1 tablet by mouth daily for 7 days LEVOFLOXACIN 64562909181 No Longer Active Erin Garsia APRN Active BACTRIM DS 800-160 MG TAB 1 tab by mouth twice daily TRIMETHOPRIM-SULFAMETHOXAZOLE 14273358500 No Longer Active Robbie Busby MD Active HYDRALAZINE HCL 50 MG ORAL TABS TWO BY MOUTH THREE TIMES DAILY HYDRALAZINE HCL 59623653123 No Longer Active Jillina Frazell [employer] Active HYDROCODONE-ACETAMINOPHEN 5-325 MG TABS 1 tab by mouth BID prn back pain 2013 HYDROCODONE-ACETAMINOPHEN 84851633631 No Longer Active Jillina Frazell [employer]ENCIL [employer] Active HYDROCHLOROTHIAZIDE TABS Take one by mouth daily HYDROCHLOROTHIAZIDE TABS 67961404896 No Longer Active Jillina Frazell STENCIL [employer] Active LAMISIL 125 MG ORAL PACK 1 TAB PO DAILY TERBINAFINE HCL 44628596018 No Longer Active Jillina Frazell STENCIL [employer] Active TRILEPTAL 150 MG ORAL TABS 1 TAB PO Q HS OXCARBAZEPINE 07406462201 No Longer Active Jillina Frazell [employer]ENCIL [employer] Active BETADINE 10 % EXT SOLN wash with solution to treat follicultis POVIDONE-IODINE 00763804133 No Longer Active Jillina Frazell [employer]ENCIL [employer] Active NYSTATIN 100134 UNIT/ML M/T SUSP 5mL po QID x 10 days NYSTATIN 02214143647 No Longer Active Erin Garsia APRN Active PREDNISONE 20 MG TAB 1 tablet twice daily for 2 days, then 1 tablet once daily for 2 days PREDNISONE 28762216419 No Longer Active Robbie Busby MD Active CEFDINIR 300 MG ORAL CAPS Take 1 cap po bid x 10 days CEFDINIR 36140628233 No Longer Active Robbie Busby MD Active AMLODIPINE BESYLATE 10 MG TABS 1 tablet by mouth daily AMLODIPINE BESYLATE 28698418290 Active Robbie Busby MD Active CARVEDILOL 25 MG TABS 1 & 1/2 TAB po BID CARVEDILOL 41860709278 Active Robbie Busby MD Active VITAMIN D3 69885 UNIT CAPS 2 CAPS PO WEEKLY CHOLECALCIFEROL 15796510158 Active Erin Garsia APRN Active NEXIUM 40 MG CPDR 1 cap by mouth daily ESOMEPRAZOLE MAGNESIUM 08173916089 Active Robbie Busby MD Active PROTONIX 40 MG SOLR 1 po qday for acid reflux PANTOPRAZOLE SODIUM 79700943772 No Longer Active Galileonila Negro Active KEFLEX 500 MG CAP 1 po TID x 10 days CEPHALEXIN 75283579583 No Longer Active Robbie Busby MD Active FIORICET 50-300-40 MG ORAL CAPS take 1 tab po qday prn migraines. [id number] 76672515161 Active Robbie Busby MD Active TOPIRAMATE 50 MG ORAL TABS take 1 tab po BID for migraines. TOPIRAMATE 29429904290 Active Robbie Busby MD Active TEMAZEPAM 15 MG ORAL CAPS 1 TAB PO Q HS TEMAZEPAM 74517964098 Active Robbie Busby MD Active ALPRAZOLAM 2 MG ORAL TABS 1 TAB PO BID ALPRAZOLAM 51458718642 Active Robbie Busby MD Active FENOFIBRATE 145 MG TABS Take one by mouth daily FENOFIBRATE 55808373302 No Longer Active Robbie Busby MD Active SPIRONOLACTONE 50 MG TABS 1 tablet by mouth twice a day SPIRONOLACTONE 89079539812 No Longer Active Robbie Busby MD Active HYDRALAZINE HCL 25 MG TABS 1 tablet by mouth tid for hypertension HYDRALAZINE HCL 50272348716 No Longer Active Robbie Busby MD Active VIIBRYD 40 MG TABS take 1 tab po qday for depression. VILAZODONE HCL 43875191185 No Longer Active Robbie Busby MD Active TERBINAFINE HCL 250 MG TABS 1 tab po qday for foot infection 2014 TERBINAFINE HCL 51982885929 No Longer Active Robbie Busby MD Active GABAPENTIN 300 MG CAPS 1 po q hs for nerve pain GABAPENTIN 18309566126 Active Robbie Busby MD Active FLONASE 50 MCG/ACT SUSP 1 spray each nostril twice daily for allergies and runny nose FLUTICASONE PROPIONATE 68586316838 Active Robbie Busby MD Active CHERATUSSIN AC 100-10 MG/5ML ORAL SOLN 7.5 mL PO q 4-6 hrs PRN cough GUAIFENESIN-CODEINE 11214993920 No Longer Active Robbie Busby MD Active AZITHROMYCIN 250 MG ORAL TABS 2 tablets PO today---then, 1 tablet PO daily x 4 more days (and 1 optional refill) AZITHROMYCIN 35570231090 No Longer Active Robbie Busby MD Active NORVASC 10 MG TAB 1 tablet by mouth daily AMLODIPINE BESYLATE 75538334381 No Longer Active Alex ALVAREZ Active IMDUR 60 MG TAB CR take 1 tab po qday for blood pressure ISOSORBIDE MONONITRATE Active Robbie Busby MD Active ISOSORBIDE DINITRATE 30 MG TABS Take one by mouth daily ISOSORBIDE DINITRATE 82502887265 No Longer Active Robbie Busby MD Active VIIBRYD 40 MG TABS 1 TA B PO DAILY VILAZODONE HCL 21275250771 Active Robbie Busby MD Active LORATADINE 10 MG TABS 1 tablet by mouth daily for congestion and allergies. 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 Active TOPROL XL 200 MG AE20S-ODI Take one by mouth daily METOPROLOL SUCCINATE 53700387551 Active Robbie Busby MD Active VENLAFAXINE HCL ER 150 MG ET64F-SPR Take one by mouth daily VENLAFAXINE HCL 29610852960 Active Robbie Busby MD Active LIPITOR 40 MG TABS Take one by mouth daily ATORVASTATIN CALCIUM 45719903170 Active Robbie Busby MD Active ISOSORBIDE DINITRATE 30 MG TABS Take one by mouth daily ISOSORBIDE DINITRATE 30 MG TABS 486597 ISOSORBIDE DINITRATE Inactive NORVASC 10 MG TAB 1 tablet by mouth daily NORVASC 10 MG TAB 102130 AMLODIPINE BESYLATE Inactive AZITHROMYCIN 250 MG ORAL TABS 2 tablets PO today---then, 1 tablet PO daily x 4 more days (and 1 optional refill) AZITHROMYCIN 250 MG ORAL TABS 1552911 AZITHROMYCIN Inactive CHERATUSSIN AC 100-10 MG/5ML ORAL SOLN 7.5 mL PO q 4-6 hrs PRN cough CHERATUSSIN AC 100-10 MG/5ML ORAL SOLN 600029 GUAIFENESIN- CODEINE Inactive VIIBRYD 40 MG TABS take 1 tab po qday for depression. VIIBRYD 40 MG TABS VILAZODONE HCL Inactive HYDRALAZINE HCL 25 MG TABS 1 tablet by mouth tid for hypertension HYDRALAZINE HCL 25 MG TABS 697866 HYDRALAZINE HCL Inactive SPIRONOLACTONE 50 MG TABS 1 tablet by mouth twice a day SPIRONOLACTONE 50 MG TABS 318969 SPIRONOLACTONE Inactive FENOFIBRATE 145 MG TABS Take one by mouth daily FENOFIBRATE 145 MG TABS 208228 FENOFIBRATE Inactive PROTONIX 40 MG SOLR 1 po qday for acid reflux PROTONIX 40 MG SOLR 941506 PANTOPRAZOLE SODIUM Inactive CEFDINIR 300 MG ORAL CAPS Take 1 cap po bid x 10 days CEFDINIR 300 MG ORAL CAPS 091503 CEFDINIR Inactive PREDNISONE 20 MG TAB 1 tablet twice daily for 2 days, then 1 tablet once daily for 2 days PREDNISONE 20 MG TAB 394260 PREDNISONE Inactive NYSTATIN 892201 UNIT/ML M/T SUSP 5mL po QID x 10 days NYSTATIN 563882 UNIT/ML M/T SUSP 193965 NYSTATIN Inactive BETADINE 10 % EXT SOLN wash with solution to treat follicultis BETADINE 10 % EXT SOLN 0503609 POVIDONE-IODINE Inactive TRILEPTAL 150 MG ORAL TABS 1 TAB PO Q HS TRILEPTAL 150 MG ORAL TABS 664786 OXCARBAZEPINE Inactive LAMISIL 125 MG ORAL PACK 1 TAB PO DAILY LAMISIL 125 MG ORAL PACK TERBINAFINE HCL Inactive HYDROCHLOROTHIAZIDE TABS Take one by mouth daily HYDROCHLOROTHIAZIDE TABS HYDROCHLOROTHIAZIDE TABS Inactive HYDROCODONE-ACETAMINOPHEN 5-325 MG TABS 1 tab by mouth BID prn back pain 2013 HYDROCODONE-ACETAMINOPHEN 5-325 MG TABS 640895 HYDROCODONE -ACETAMINOPHEN Inactive HYDRALAZINE HCL 50 MG ORAL TABS TWO BY MOUTH THREE TIMES DAILY HYDRALAZINE HCL 50 MG ORAL TABS 503476 HYDRALAZINE HCL Inactive LEVAQUIN 500 MG TAB 1 tablet by mouth daily for 7 days LEVAQUIN 500 MG TAB 895730 LEVOFLOXACIN Inactive SPIRONOLACTONE 25 MG TAB 4 tablets by mouth daily SPIRONOLACTONE 25 MG TAB 920052 SPIRONOLACTONE Inactive MECLIZINE HCL 25 MG TAB one 4 times a day as needed for dizziness MECLIZINE HCL 25 MG TAB 848415 MECLIZINE HCL Inactive CLONIDINE HCL 0.2 MG ORAL TABS 1 TAB BY MOUTH EVERY 8 HOURS 12/29 CLONIDINE HCL 0.2 MG ORAL TABS 451496 CLONIDINE HCL Inactive ZITHROMAX 250 MG TAB 2 po today, then 1 po q days 2-5 ZITHROMAX 250 MG TAB 0868374 AZITHROMYCIN Inactive TERBINAFINE HCL 250 MG TABS 1 tab po qday for foot infection 2014 TERBINAFINE HCL 250 MG TABS 112192 TERBINAFINE HCL Inactive KEFLEX 500 MG CAP 1 po TID x 10 days KEFLEX 500 MG CAP 880152 CEPHALEXIN Inactive BACTRIM DS 800-160 MG TAB 1 tab by mouth twice daily BACTRIM DS 800-160 MG TAB 896692 TRIMETHOPRIM-SULFAMETHOXAZOLE Inactive PREDNISONE 20 MG TAB take 3 tabs daily for 3 days, 2 tabs daily for 3 days, 1 tab daily for 3 days, 1/2 tab daily for 4 days PREDNISONE 20 MG TAB 992372 PREDNISONE Inactive Advance Directives Directive Description Start [...] % 11.6-14.8 platelet count 229 10^3/MM^3 10*3/mm3 741-935 9035/09/06 leukocyte count, blood 9.7 10^3/MM^3 10*3/mm3 4.6-10.2 Lab Report: CBC-QUEST, COMPREHENSIVE METABOLIC PANEL - Hematology leukocyte count, blood 10.1 THOUSAND/UL 10*3/mm3 3.8-10.8 mean corpuscular hemoglobin, RBC 29.9 pg 27.0-33.0 mean corpuscular hemoglobin concentration, RBC 33.1 G/DL % 32.0- 36.0 red blood cell distribution width 15.8 % 11.0-15.0 platelet count 185 THOUSAND/UL 10*3/mm3 179-595 1828/04/14 mean platelet volume 10.9 fL 7.5-12.5 erythrocyte (RBC) count 4.64 MILLION/UL 10*6/mm3 4.20-5.80 hemoglobin, blood 13.9 g/dL 13.2-17.1 hematocrit, blood 42.0 % 38.5-50.0 mean corpuscular volume, RBC 90.5 fL 80.0-100.0 Lab Report: HEPATITIS B SAB/Immune Status, RUBELLA IGG AB(Immune Status) - Serology rubella antibody, serum, IgG 2.06 Lab Report: LIPID PANEL, TSH/899, T4, FREE/866 - Chemistry cholesterol, serum 220 mg/dL 823-110 5313/04/14 HDL cholesterol, serum 30 mg/dL > OR=40 triglyceride, serum, fasting 466 mg/dL <150 LDL cholesterol, serum SEE NOTE mg/dL (calc) mg/dL <130 cholesterol/HDL ratio, serum 7.3 (calc) < OR=5.0 Lab Report: MICROALB/CREAT W/RATIO - Chemistry albumin/creatinine ratio, urine < 30 mg/g mg/g{creat} 0-29 Lab Report: MICROALB/CREAT W/RATIO - Lab microalbumin, urine 80 0-19 Lab Report: VITAMIN D, 25-HYDROXY/15785 - Chemistry vitamin D 25-hydroxy, serum 23 ng/mL 30-100 Encounters Code Encounter Date Provider Facility CPT-17163 Level 3 Est. Patient 17:48:02 CDT Robbie Busby MD [facility]-21202 Level 4 Est. Patient 12:00:49 RN CLINICAL APPEALS Rober Rodríguez [facility] [place] CPT-45370 Level 3 Est. Patient 09:16:37 CDT Robbie Busby MD [facility]-93193 Level 3 Est. Patient 19:38:43 CDT Robbie Busby MD [facility]-88973 Level 3 Est. Patient 11:53:38 CDT Robbie Busby MD [facility]-12291 Level 4 Est. Patient 12:52:22 CDT Rober Rodríguez [facility]-59647 Level 4 Est. Patient 22:55:17 CDT Robbie Busby MD [facility] CPT-12145 Level 3 Est. Patient 12:38:24 CDT Desmond Diaz DO [facility] CPT-42786 Level 4 Est. Patient 11:25:03 RN CLINICAL APPEALS Robbie Busby MD [facility] CPT-84853 Level 4 Est. Patient 14:50:10 CDT Robbie Busby MD [facility] CPT-10265 Level 4 Est. Patient 23:30:43 CDT Robbie Busby MD [facility] CPT-39776 Level 4 Est. Patient 10:30:43 CDT Robbie Busby MD [facility] CPT-88471 Level 3 Est. Patient 17:08:12 CDT Alex ALVAREZ [facility] CPT-41596 Level 4 Est. Patient 17:51:38 CDT Robbie Busby [facility]-05421 Level 4 Est. Patient 14:00:21 CDT Robbie Busby MD [facility] CPT-89939 Level 4 Est. Patient 12:46:48 CDT Robbie Busby MD [facility] CPT-88644 Level 4 Est. Patient 13:34:33 CDT Robbie Busby MD [facility] CPT-71313 Level 4 Est. Patient 16:58:28 CDT Robbie Busby MD [facility] CPT-64576 Level 3 Est. Patient 19:36:53 CDT Alex ALVAREZ [facility] CPT-55522 Level 3 Est. Patient 12:58:15 CDT Robbie Busby MD [facility] Procedures Code Procedure Name Date Entry Date Standard Description CPT-J0696 Rocephin 1000 mg (Ceftriaxone) 17:43:43 RN CLINICAL APPEALS CPT-J1040 Depo Medrol 80 mg (Methyl Prednisolone Acetate) 17:43: 43 RN CLINICAL APPEALS CPT-J1100 Decadron 8mg (Dexamethasone) 17:43:42 RN CLINICAL APPEALS CPT-63609 Abx/Therapy Injection 17:43:42 RN CLINICAL APPEALS CPT-82366 Abx/Therapy Injection 17:43:42 RN CLINICAL APPEALS CPT-J1040 Depo Medrol 80 mg (Methyl Prednisolone Acetate) 09:43: 34 RN CLINICAL APPEALS CPT-J1100 Decadron 8mg (Dexamethasone) 09:43:34 RN CLINICAL APPEALS CPT-J0696 Rocephin 1gm Inj Solr 09:43:34 RN CLINICAL APPEALS CPT-96292 Wound Culture - LAB USE ONLY 14:00:21 CDT CPT-I/D I/D Abscess 09:16:37 CDT CPT-11185 Venipuncture Draw Fee 15:20:23 CDT CPT-53551 Microalbumin - LAB USE ONLY 16:02:19 CDT CPT-11019 CBC - LAB USE ONLY 16:02:19 CDT CPT-51154 Venipuncture Draw Fee 16:02:19 CDT CPT-G0438 Initial Annual Wellness Exam 08:10:28 CDT CPT-59421 Venipuncture Draw Fee 13:07:17 CDT CPT-G0008 Administration of Influenza Virus Vaccine 16:09:59 CDT CPT-67560 Fluzone Quadrivalent Intramuscular Suspension 0.5 ML 16: 09:59 CDT CPT-80306 Spec Collection and Handling Fee 15:05:50 CDT
--- OUTSIDE RECORDS SUMMARY | 2018-04-18 11:57 | XMS REPORT | Clinical Summary ---
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 Desmond Diaz DO Other malignant secondary hypertension Tachycardia 785.0 Active Rober Rodríguez VETERINARY NURSE Tachycardia, unspecified Insect bite, infected 919.5 Resolved Desmond Diaz DO Insect bite, nonvenomous, of other, multiple, and unspecified sites, infected Abscess, skin 682.9 Resolved Desmond Diaz DO Cellulitis and abscess of unspecified sites URI 465.9 Resolved Desmond Diaz DO Acute upper respiratory infections of unspecified site Hypertension 401.9 Active Rober Rodríguez VETERINARY NURSE Unspecified essential hypertension Sinusitis - acute [...] Hypogonadism, low testosterone 257.2 Active Erin Mai VETERINARY NURSE Other testicular hypofunction Low back pain, [...] 37.0-37.9, adult Sinusitis ICD-461.9 Inactive Emily Atwood CITY CLERK 2017 Low back pain, acute ICD-724.2 Inactive Emily Atwood CITY CLERK Low back pain, chronic ICD-724.2 Inactive Emily Atwood CITY CLERK Bronchitis, acute ICD-466.0 Inactive Emily Atwood CITY CLERK Onychomycosis, toenails ICD-110.1 Inactive Emily Atwood CITY CLERK Dizziness ICD-780.4 Inactive Emily Atwood CITY CLERK 2017 Folliculitis ICD-704.8 Inactive Emily Atwood CITY CLERK Pharyngitis-Acute ICD-462 Inactive Emily Atwood CITY CLERK Fatigue ICD-780.79 Inactive Emily Atwood CITY CLERK 09/20 Hypertension, secondary, malignant ICD-405.09 Inactive Emily Atwood CITY CLERK Insect bite, infected ICD-919.5 Inactive Emily Atwood CITY CLERK Abscess, skin ICD-682.9 Inactive Emily Atwood CITY CLERK URI ICD-465.9 Inactive Emily Atwood CITY CLERK Sinusitis - acute ICD-461.9 Inactive Emily Atwood CITY CLERK Acute confusion ICD-293.0 Inactive Emily Atwood CITY CLERK Headache ICD-784.0 Inactive Emily Rai CISSE 09/20 [...] HOUR 1 po q day ISOSORBIDE MONONITRATE 65474599052 Active Emma Hernandez Active METOPROLOL SUCCINATE ER 200 MG ORAL TABLET EXTENDED RELEASE 24 HOUR take 1 tab po qday for high blood pressure and rapid pulse METOPROLOL SUCCINATE 20135828650 Active Robbie Busby MD Active [id number] 0.3 MG/24HR TRANSDERMAL PATCH WEEKLY apply 2 patches q week for HTN CLONIDINE HCL 69264613015 No Longer Active Robbie Busby MD Active IMDUR 60 MG ORAL TABLET EXTENDED RELEASE 24 HOUR take 1 tab po qday for blood pressure ISOSORBIDE MONONITRATE 39646699701 No Longer Active Robbie Busby MD Active TEMAZEPAM 15 MG ORAL CAPSULE 1 TAB PO Q HS TEMAZEPAM 34379207093 No Longer Active Robbie Busby MD Active TOPIRAMATE 50 MG ORAL TABLET 1 po BID for migraines TOPIRAMATE 26097266654 No Longer Active Robbie Busby MD Active CYCLOBENZAPRINE HCL 10 MG ORAL TABLET 1 tablet by mouth three times daily as needed for muscle spasm/pain CYCLOBENZAPRINE HCL 73209813965 No Longer Active Robbie Busby MD Active TOPROL XL 200 MG ORAL TABLET EXTENDED RELEASE 24 HOUR Take one by mouth daily METOPROLOL SUCCINATE 58668602017 No Longer Active Robbie Busby MD Active METFORMIN HCL 500 MG ORAL TABLET 1 tablet by mouth daily for diabetes type 2 METFORMIN HCL 50780309584 Active Robbie Busby MD Active SINGULAIR 10 MG ORAL TABLET 1 po qday for allergies. MONTELUKAST SODIUM 76333311373 No Longer Active Robbie Busby MD Active PREDNISONE 20 MG ORAL TABLET two tabs by mouth today, then one tab by mouth days two and three PREDNISONE 00654939894 No Longer Active Robbie Busby MD Active AZITHROMYCIN 250 MG ORAL TABLET 2 po qd x 1 day, then 1 po qd x 4 days 09/20 AZITHROMYCIN 01478937350 No Longer Active Desmond Diaz DO Active TOPIRAMATE 50 MG ORAL TABLET take 1 tab po BID for migraines. TOPIRAMATE 47670676931 No Longer Active Desmond Diaz DO Active CYCLOBENZAPRINE HCL 10 MG ORAL TABLET 1 po TID PRN muscle spasm/pain for 10 days CYCLOBENZAPRINE HCL 16003129490 No Longer Active Desmond Diaz DO Active GUAIFENESIN ER 600 MG ORAL TABLET EXTENDED RELEASE 12 HOUR 1 tab po q am 2016 GUAIFENESIN 18689825006 No Longer Active Robbie Busby MD Active DIVALPROEX SODIUM ER 500 MG ORAL TABLET EXTENDED RELEASE 24 HOUR Once daily DIVALPROEX SODIUM 55123697231 Active Robbie Busby MD Active DEPO-TESTOSTERONE 200 MG/ML INTRAMUSCULAR SOLUTION 1 IM Injections every 2 weeks for low testosterone TESTOSTERONE CYPIONATE 13646199919 Active Zulema Blank LPN Active FLUTICASONE PROPIONATE 50 MCG/ACT NASAL SUSPENSION 2 sprays per nostril bid for 1 week, then 1 spray bid FLUTICASONE PROPIONATE 80473272596 Active Rober Rodríguez APRN Active HYDRALAZINE HCL 25 MG ORAL TABLET Take 1 tab BID. HYDRALAZINE HCL 03372856909 Active Rober Rodríguez APRN Active VITAMIN D3 31176 UNIT ORAL TABLET 2 po weekly CHOLECALCIFEROL 17121314229 Active Robbie Busby MD Active OXYCODONE HCL ER 10 MG ORAL TABLET ER 12 HOUR ABUSE-DETERRENT 1 tab po 3 times qd. OXYCODONE HCL 65730070715 Active Robbie Busby MD Active NITROSTAT 0.4 MG SUBLINGUAL TABLET SUBLINGUAL PRN NITROGLYCERIN 74842313798 No Longer Active Robbie Busby MD Active LORATADINE 10 MG ORAL TABLET 1 tablet by mouth daily for congestion and allergies. LORATADINE 40858144402 No Longer Active Robbie Busby MD Active FLONASE 50 MCG/ACT NASAL SUSPENSION 1 spray each nostril twice daily for allergies and runny nose FLUTICASONE PROPIONATE 96687054586 No Longer Active Robbie Busby MD Active FIORICET 50-300-40 MG ORAL CAPSULE take 1 tab po qday prn migraines. [id number]-[id number] 30560535512 No Longer Active Robbie Busby MD Active VITAMIN D3 24048 UNIT ORAL CAPSULE 2 CAPS PO WEEKLY CHOLECALCIFEROL 29497696100 No Longer Active Robbie Busby MD Active CYCLOBENZAPRINE HCL 10 MG ORAL TABLET 1 tablet by mouth three times daily as needed for muscle spasm/pain for 10 days CYCLOBENZAPRINE HCL 91404821179 No Longer Active Robbie Busby MD Active PREDNISONE 20 MG ORAL TABLET take 3 tabs daily for 3 days, 2 tabs daily for 3 days, 1 tab daily for 3 days, 1/2 tab daily for 4 days PREDNISONE 70565009222 No Longer Active Erin Mai APRN Active CLONIDINE HCL 0.2 MG ORAL TABLET 1 TAB BY MOUTH EVERY 8 HOURS CLONIDINE HCL 48806376616 No Longer Active Erin Mai APRN Active MECLIZINE HCL 25 MG ORAL TABLET one 4 times a day as needed for dizziness MECLIZINE HCL 97593639649 No Longer Active Erin Mai APRN Active SPIRONOLACTONE 25 MG ORAL TABLET 4 tablets by mouth daily SPIRONOLACTONE 57891755203 No Longer Active Erin Riverall VETERINARY NURSE Active LEVAQUIN 500 MG ORAL TABLET 1 tablet by mouth daily for 7 days LEVOFLOXACIN 87300604875 No Longer Active Erin Mai VETERINARY NURSE Active BACTRIM DS 800-160 MG ORAL TABLET 1 tab by mouth twice daily 2015 TRIMETHOPRIM-SULFAMETHOXAZOLE 20894405813 No Longer Active Robbie Busby MD Active HYDRALAZINE HCL 50 MG ORAL TABLET TWO BY MOUTH THREE TIMES DAILY HYDRALAZINE HCL 95066821704 No Longer Active Jillina Frazell VETERINARY NURSE Active HYDROCODONE-ACETAMINOPHEN 5-325 MG ORAL TABLET 1 tab by mouth BID prn back pain HYDROCODONE-ACETAMINOPHEN 29182807640 No Longer Active Jillina Frazell VETERINARY NURSE Active HYDROCHLOROTHIAZIDE TABLET Take one by mouth daily HYDROCHLOROTHIAZIDE TABS 85346736285 No Longer Active Jillina Frazell VETERINARY NURSE Active LAMISIL 125 MG ORAL PACKET 1 TAB PO DAILY TERBINAFINE HCL 64812540487 No Longer Active Jillina Frazell VETERINARY NURSE Active TRILEPTAL 150 MG ORAL TABLET 1 TAB PO Q HS OXCARBAZEPINE 42386562908 No Longer Active Jillina Frazell VETERINARY NURSE Active BETADINE 10 % EXTERNAL SOLUTION wash with solution to treat follicultis 07/29 POVIDONE-IODINE 97581718046 No Longer Active Jillina Frazell VETERINARY NURSE Active NYSTATIN 655137 UNIT/ML MOUTH/THROAT SUSPENSION 5mL po QID x 10 days NYSTATIN 40639847605 No Longer Active Erin Mai VETERINARY NURSE Active PREDNISONE 20 MG ORAL TABLET 1 tablet twice daily for 2 days, then 1 tablet once daily for 2 days PREDNISONE 58665413372 No Longer Active Robbie Busby MD Active CEFDINIR 300 MG ORAL CAPSULE Take 1 cap po bid x 10 days CEFDINIR 01827698135 No Longer Active Robbie Busby MD Active AMLODIPINE BESYLATE 10 MG ORAL TABLET 1 tablet by mouth daily AMLODIPINE BESYLATE 26745737243 Active Robbie Busby MD Active CARVEDILOL 25 MG ORAL TABLET 1 & 1/2 TAB po BID CARVEDILOL 52687392944 Active Robbie Busby MD Active NEXIUM 40 MG ORAL CAPSULE DELAYED RELEASE 1 cap by mouth daily ESOMEPRAZOLE MAGNESIUM 92484923733 Active Robbie Busby MD Active PROTONIX 40 MG INTRAVENOUS SOLUTION RECONSTITUTED 1 po qday for acid reflux PANTOPRAZOLE SODIUM 88264013355 No Longer Active Galileonila Negro Active KEFLEX 500 MG ORAL CAPSULE 1 po TID x 10 days CEPHALEXIN 64590510551 No Longer Active Robbie Busby MD Active ALPRAZOLAM 2 MG ORAL TABLET 1 TAB PO BID ALPRAZOLAM 15182141379 Active Robbie Busby MD Active FENOFIBRATE 145 MG ORAL TABLET Take one by mouth daily FENOFIBRATE 22339475658 No Longer Active Robbie Busby MD Active SPIRONOLACTONE 50 MG ORAL TABLET 1 tablet by mouth twice a day SPIRONOLACTONE 60213101956 No Longer Active Robbie Busby MD Active HYDRALAZINE HCL 25 MG ORAL TABLET 1 tablet by mouth tid for hypertension 2013 HYDRALAZINE HCL 70102365446 No Longer Active Robbie Busby MD Active VIIBRYD 40 MG ORAL TABLET take 1 tab po qday for depression. 2014 VILAZODONE HCL 30365699923 No Longer Active Robbie Busby MD Active TERBINAFINE HCL 250 MG ORAL TABLET 1 tab po qday for foot infection TERBINAFINE HCL 10919229331 No Longer Active Robbie Busby MD Active GABAPENTIN 300 MG ORAL CAPSULE 1 po q hs for nerve pain GABAPENTIN 46915925651 Active Robbie Busby MD Active CHERATUSSIN AC 100-10 MG/5ML ORAL SOLUTION 7.5 mL PO q 4-6 hrs PRN cough 2014 GUAIFENESIN-CODEINE 47504660713 No Longer Active Robbie Busby MD Active AZITHROMYCIN 250 MG ORAL TABLET 2 tablets PO today---then, 1 tablet PO daily x 4 more days (and 1 optional refill) AZITHROMYCIN 31761016050 No Longer Active Robbie Busby MD Active NORVASC 10 MG ORAL TABLET 1 tablet by mouth daily AMLODIPINE BESYLATE 18226947560 No Longer Active Alex ALVAREZ Active ISOSORBIDE DINITRATE 30 MG ORAL TABLET Take one by mouth daily ISOSORBIDE DINITRATE 39255473099 No Longer Active Robbie Busby MD Active VIIBRYD 40 MG ORAL TABLET 1 TA B PO DAILY VILAZODONE HCL 31408307212 Active Robbie Busby MD Active ZITHROMAX 250 MG ORAL TABLET 2 po today, then 1 po q days 2-5 AZITHROMYCIN 84603006095 No Longer Active Robbie Busby MD Active DOXAZOSIN MESYLATE 4 MG ORAL TABLET Take one by mouth daily DOXAZOSIN MESYLATE 11418766646 Active Robbie Busby MD Active VENLAFAXINE HCL ER 150 MG ORAL TABLET EXTENDED RELEASE 24 HOUR Take one by mouth daily VENLAFAXINE HCL 01576940406 Active Robbie Busby MD Active LIPITOR 40 MG ORAL TABLET Take one by mouth daily ATORVASTATIN CALCIUM 28884308772 Active Robbie Busby MD Active ISOSORBIDE DINITRATE 30 MG ORAL TABLET Take one by mouth daily ISOSORBIDE DINITRATE 30 MG ORAL TABLET 650013 ISOSORBIDE DINITRATE Inactive NORVASC 10 MG ORAL TABLET 1 tablet by mouth daily NORVASC 10 MG ORAL TABLET 058628 AMLODIPINE BESYLATE Inactive AZITHROMYCIN 250 MG ORAL TABLET 2 tablets PO today---then, 1 tablet PO daily x 4 more days (and 1 optional refill) AZITHROMYCIN 250 MG ORAL TABLET 246034 AZITHROMYCIN Inactive CHERATUSSIN AC 100-10 MG/5ML ORAL SOLUTION 7.5 mL PO q 4-6 hrs PRN cough 2014 CHERATUSSIN AC 100-10 MG/5ML ORAL SOLUTION 814841 GUAIFENESIN-CODEINE Inactive VIIBRYD 40 MG ORAL TABLET take 1 tab po qday for depression. 2014 VIIBRYD 40 MG ORAL TABLET VILAZODONE HCL Inactive HYDRALAZINE HCL 25 MG ORAL TABLET 1 tablet by mouth tid for hypertension 2013 HYDRALAZINE HCL 25 MG ORAL TABLET 500355 HYDRALAZINE HCL Inactive SPIRONOLACTONE 50 MG ORAL TABLET 1 tablet by mouth twice a day SPIRONOLACTONE 50 MG ORAL TABLET 739335 SPIRONOLACTONE Inactive FENOFIBRATE 145 MG ORAL TABLET Take one by mouth daily FENOFIBRATE 145 MG ORAL TABLET 081429 FENOFIBRATE Inactive PROTONIX 40 MG INTRAVENOUS SOLUTION RECONSTITUTED 1 po qday for acid reflux PROTONIX 40 MG INTRAVENOUS SOLUTION RECONSTITUTED 489925 PANTOPRAZOLE SODIUM Inactive CEFDINIR 300 MG ORAL CAPSULE Take 1 cap po bid x 10 days CEFDINIR 300 MG ORAL CAPSULE 067659 CEFDINIR Inactive PREDNISONE 20 MG ORAL TABLET 1 tablet twice daily for 2 days, then 1 tablet once daily for 2 days PREDNISONE 20 MG ORAL TABLET 499757 PREDNISONE Inactive NYSTATIN 323236 UNIT/ML MOUTH/THROAT SUSPENSION 5mL po QID x 10 days NYSTATIN 617709 UNIT/ML MOUTH/THROAT SUSPENSION 336088 NYSTATIN Inactive BETADINE 10 % EXTERNAL SOLUTION wash with solution to treat follicultis 07/29 BETADINE 10 % EXTERNAL SOLUTION 3159656 POVIDONE-IODINE Inactive TRILEPTAL 150 MG ORAL TABLET 1 TAB PO Q HS TRILEPTAL 150 MG ORAL TABLET 050023 OXCARBAZEPINE Inactive LAMISIL 125 MG ORAL PACKET 1 TAB PO DAILY LAMISIL 125 MG ORAL PACKET TERBINAFINE HCL Inactive HYDROCHLOROTHIAZIDE TABLET Take one by mouth daily HYDROCHLOROTHIAZIDE TABLET HYDROCHLOROTHIAZIDE TABS Inactive HYDROCODONE-ACETAMINOPHEN 5-325 MG ORAL TABLET 1 tab by mouth BID prn back pain HYDROCODONE-ACETAMINOPHEN 5-325 MG ORAL TABLET 116718 HYDROCODONE-ACETAMINOPHEN Inactive HYDRALAZINE HCL 50 MG ORAL TABLET TWO BY MOUTH THREE TIMES DAILY HYDRALAZINE HCL 50 MG ORAL TABLET 415548 HYDRALAZINE HCL Inactive LEVAQUIN 500 MG ORAL TABLET 1 tablet by mouth daily for 7 days LEVAQUIN 500 MG ORAL TABLET 524314 LEVOFLOXACIN Inactive SPIRONOLACTONE 25 MG ORAL TABLET 4 tablets by mouth daily SPIRONOLACTONE 25 MG ORAL TABLET 822563 SPIRONOLACTONE Inactive MECLIZINE HCL 25 MG ORAL TABLET one 4 times a day as needed for dizziness MECLIZINE HCL 25 MG ORAL TABLET 639670 MECLIZINE HCL Inactive CLONIDINE HCL 0.2 MG ORAL TABLET 1 TAB BY MOUTH EVERY 8 HOURS CLONIDINE HCL 0.2 MG ORAL TABLET 117336 CLONIDINE HCL Inactive CYCLOBENZAPRINE HCL 10 MG ORAL TABLET 1 tablet by mouth three times daily as needed for muscle spasm/pain for 10 days CYCLOBENZAPRINE HCL 10 MG ORAL TABLET 264576 CYCLOBENZAPRINE HCL Inactive VITAMIN D3 27410 UNIT ORAL CAPSULE 2 CAPS PO WEEKLY VITAMIN D3 60553 UNIT ORAL CAPSULE CHOLECALCIFEROL Inactive FIORICET 50-300-40 MG ORAL CAPSULE take 1 tab po qday prn migraines. FIORICET 50-300-40 MG ORAL CAPSULE 523676 BUTALBITAL-APAP- CAFFEINE Inactive FLONASE 50 MCG/ACT NASAL SUSPENSION 1 spray each nostril twice daily for allergies and runny nose FLONASE 50 MCG/ACT NASAL SUSPENSION 9966284 FLUTICASONE PROPIONATE Inactive LORATADINE 10 MG ORAL TABLET 1 tablet by mouth daily for congestion and allergies. LORATADINE 10 MG ORAL TABLET 895924 LORATADINE Inactive NITROSTAT 0.4 MG SUBLINGUAL TABLET SUBLINGUAL PRN NITROSTAT 0.4 MG SUBLINGUAL TABLET SUBLINGUAL 403345 NITROGLYCERIN Inactive GUAIFENESIN ER 600 MG ORAL TABLET EXTENDED RELEASE 12 HOUR 1 tab po q am 2016 GUAIFENESIN ER 600 MG ORAL TABLET EXTENDED RELEASE 12 HOUR GUAIFENESIN Inactive CYCLOBENZAPRINE HCL 10 MG ORAL TABLET 1 po TID PRN muscle spasm/pain for 10 days CYCLOBENZAPRINE HCL 10 MG ORAL TABLET 668190 CYCLOBENZAPRINE HCL Inactive TOPIRAMATE 50 MG ORAL TABLET take 1 tab po BID for migraines. TOPIRAMATE 50 MG ORAL TABLET 069831 TOPIRAMATE Inactive PREDNISONE 20 MG ORAL TABLET two tabs by mouth today, then one tab by mouth days two and three PREDNISONE 20 MG ORAL TABLET 168376 PREDNISONE Inactive TOPROL XL 200 MG ORAL TABLET EXTENDED RELEASE 24 HOUR Take one by mouth daily TOPROL XL 200 MG ORAL TABLET EXTENDED RELEASE 24 HOUR METOPROLOL SUCCINATE Inactive CYCLOBENZAPRINE HCL 10 MG ORAL TABLET 1 tablet by mouth three times daily as needed for muscle spasm/pain CYCLOBENZAPRINE HCL 10 MG ORAL TABLET 862318 CYCLOBENZAPRINE HCL Inactive TOPIRAMATE 50 MG ORAL TABLET 1 po BID for migraines TOPIRAMATE 50 MG ORAL TABLET 994178 TOPIRAMATE Inactive TEMAZEPAM 15 MG ORAL CAPSULE 1 TAB PO Q HS TEMAZEPAM 15 MG ORAL CAPSULE 743423 TEMAZEPAM Inactive IMDUR 60 MG ORAL TABLET EXTENDED RELEASE 24 HOUR take 1 tab po qday for blood pressure IMDUR 60 MG ORAL TABLET EXTENDED RELEASE 24 HOUR ISOSORBIDE MONONITRATE Inactive [id number] 0.3 MG/24HR TRANSDERMAL PATCH WEEKLY apply 2 patches q week for HTN [id number]-[id number]-0 0.3 MG/24HR TRANSDERMAL PATCH WEEKLY 563342 CLONIDINE HCL Inactive ZITHROMAX 250 MG ORAL TABLET 2 po today, then 1 po q days 2-5 ZITHROMAX 250 MG ORAL TABLET 942410 AZITHROMYCIN Inactive TERBINAFINE HCL 250 MG ORAL TABLET 1 tab po qday for foot infection TERBINAFINE HCL 250 MG ORAL TABLET 188961 TERBINAFINE HCL Inactive KEFLEX 500 MG ORAL CAPSULE 1 po TID x 10 days KEFLEX 500 MG ORAL CAPSULE 502772 CEPHALEXIN Inactive BACTRIM DS 800-160 MG ORAL TABLET 1 tab by mouth twice daily 2015 BACTRIM DS 800-160 MG ORAL TABLET 030143 TRIMETHOPRIM- SULFAMETHOXAZOLE Inactive PREDNISONE 20 MG ORAL TABLET take 3 tabs daily for 3 days, 2 tabs daily for 3 days, 1 tab daily for 3 days, 1/2 tab daily for 4 days PREDNISONE 20 MG ORAL TABLET 947377 PREDNISONE Inactive AZITHROMYCIN 250 MG ORAL TABLET 2 po qd x 1 day, then 1 po qd x 4 days 09/20 AZITHROMYCIN 250 MG ORAL TABLET 336239 AZITHROMYCIN Inactive SINGULAIR 10 MG ORAL TABLET 1 po qday for allergies. SINGULAIR 10 MG ORAL TABLET 794461 MONTELUKAST SODIUM Inactive Advance Directives Directive Description [...] AUTO - Chemistry sodium, serum 142 mmol/L 575-293 6421/07/17 carbon dioxide, venous blood 28.2 mmol/L 21.0-32.0 [...] % 11.0-15.0 platelet count 185 THOUSAND/UL 10*3/mm3 979-587 9734/04/14 mean platelet volume 10.9 fL 7.5-12.5 Lab Report: Comp. Metabolic Panel - Chemistry sodium, serum 141 mmol/L 825-917 9391/02/13 carbon dioxide, venous blood 23.9 mmol/L 21.0-32.0 [...] 6.9 % 4.3-6.0 sodium, serum 139 mmol/L 182-355 1280/01/04 potassium, serum 3.9 mmol/L 3.5-5.2 chloride, serum 103 mmol/L 98-107 carbon dioxide, venous blood 26.9 mmol/L 21.0-32.0 blood glucose 106 mg/dL 65-110 calcium, serum 9.0 mg/dL 8.5-10.1 urea nitrogen, blood 20 mg/dL 7-18 creatinine, serum 1.46 mg/dL 0.60-1.30 Lab Report: LIPID PANEL, TSH/899, T4, FREE/866 - Chemistry cholesterol, serum 220 mg/dL 850-009 6587/04/14 HDL cholesterol, serum 30 mg/dL > OR=40 [...] 1.80 ng/mL 0.00-4.00 Lab Report: VITAMIN D, 25-HYDROXY/73234 - Chemistry vitamin D 25-hydroxy, serum 25 ng/mL 30-100 Office Visit: Confusion, dizziness after fall - Basic LDL target level 130 mg/dL Office Visit: Confusion, dizziness after fall - Chemistry HDL cholesterol, serum, target level 40 mg/dL triglyceride, target level 150 mg/dL cholesterol, target level 200 mg/dL Encounters Code Encounter Date Provider Facility CPT-17397 Level 4 Est. Patient 09:50:01 AUTOMATIC TIRE TESTER Robbie Busby MD [facility] CPT-13133 Level 4 Est. Patient 09:42:08 AUTOMATIC TIRE TESTER Robbie Busby MD [facility] CPT-60558 Level 4 Est. Patient 13:07:39 AUTOMATIC TIRE TESTER Robbie Busby MD [facility] CPT-85699 Level 4 Est. Patient 15:23:44 AUTOMATIC TIRE TESTER Desmond Diaz DO [facility] CPT-94492 Level 3 Est. Patient 15:40:49 CDT Robbie Busby MD [facility] CPT-93445 Level 4 Est. Patient 15:18:19 CDT Robbie Busby MD [facility] CPT-55408 Level 3 Est. Patient 09:00:37 CDT Rober Rodríguez [facility] [place] CPT-91615 Level 3 Est. Patient 16:07:10 CDT Robbie Busby MD [facility] CPT-16202 Level 4 Est. Patient 11:56:16 CDT Erin Mai [facility] [place] CPT-85628 Level 3 Est. Patient 17:48:02 CDT Robbie Busby MD [facility] CPT-89052 Level 4 Est. Patient 12:00:49 AUTOMATIC TIRE TESTER Rober Rodríguez [facility] [place] CPT-78310 Level 3 Est. Patient 09:16:37 CDT Robbie Busby MD [facility]-07723 Level 3 Est. Patient 19:38:43 CDT Robbie Busby MD [facility] CPT-86057 Level 3 Est. Patient 11:53:38 CDT Robbie Busby MD [facility] CPT-09209 Level 4 Est. Patient 12:52:22 CDT Rober Rodríguez [facility]-52636 Level 4 Est. Patient 22:55:17 CDT Robbie Busby MD [facility]-96694 Level 3 Est. Patient 12:38:24 CDT Desmond Diaz DO [facility] CPT-20831 Level 4 Est. Patient 11:25:03 AUTOMATIC TIRE TESTER Robbie Busby MD [facility] CPT-98341 Level 4 Est. Patient 14:50:10 CDT Robbie Busby MD [facility] CPT-52791 Level 4 Est. Patient 23:30:43 CDT Robbie Busby MD [facility] CPT-15718 Level 4 Est. Patient 10:30:43 CDT Robbie Busby MD [facility] CPT-50504 Level 3 Est. Patient 17:08:12 CDT Alex ALVAREZ [facility] CPT-15952 Level 4 Est. Patient 17:51:38 CDT Robbie Busby MD [facility]-50217 Level 4 Est. Patient 14:00:21 CDT Robbie Busby MD [facility] CPT-08173 Level 4 Est. Patient 12:46:48 CDT Robbie Busby MD [facility] CPT-71665 Level 4 Est. Patient 13:34:33 CDT Robbie Busby MD [facility] CPT-81924 Level 4 Est. Patient 16:58:28 CDT Robbie Busby MD [facility] CPT-68982 Level 3 Est. Patient 19:36:53 CDT Alex ALVAREZ [facility] CPT-66737 Level 3 Est. Patient 12:58:15 CDT Robbie Busby MD [facility] Procedures Code Procedure Name Date Entry Date Standard Description CPT-J1071 Depo Testosterone 200mg 16:10:29 [facility] CPT-90232 Abx/Therapy Injection 16:10:29 [facility] CPT-J1071 Depo Testosterone 200mg 16:13:47 [facility] CPT-94966 Abx/Therapy Injection 16:13:46 [facility] CPT-J1071 Depo Testosterone 200mg 15:33:58 [facility] CPT-84183 Abx/Therapy Injection 15:33:58 [facility] CPT-J1071 Depo Testosterone 200mg 09:38:36 [facility] CPT-49171 Abx/Therapy Injection 09:38:36 [facility] CPT-J1071 Depo Testosterone 200mg 10:22:56 [employer] CPT-82490 Abx/Therapy Injection 10:22:56 [employer]OMATIC TIRE TE[employer] CPT-J1071 Depo Testosterone 200mg 15:40:23 CDT CPT-59914 Abx/Therapy Injection 15:40:23 CDT CPT-J1071 Depo Testosterone 200mg 14:20:43 CDT CPT-66487 Abx/Therapy Injection 14:20:43 CDT CPT-J1071 Depo Testosterone 200mg 14:17:22 CDT CPT-01575 Abx/Therapy Injection 14:17:22 CDT CPT-J1071 Depo Testosterone 200mg 09:03:53 CDT CPT-55579 Abx/Therapy Injection 09:03:53 CDT CPT-G0439 [facility] Annual Wellness Exam 16:47:44 CDT CPT-J1071 Depo Testosterone 200mg 09:06:28 CDT CPT-56222 Abx/Therapy Injection 09:06:28 CDT CPT-J1071 Depo Testosterone 200mg 08:30:01 CDT CPT-70076 Abx/Therapy Injection 08:30:01 CDT CPT-J1071 Depo Testosterone 200mg 08:24:00 CDT CPT-01676 Abx/Therapy Injection 08:24:00 CDT CPT-27469 Venipuncture Draw Fee 14:39:06 CDT CPT-72100 Ribs unilateral 2V - XRAY USE ONLY 12:10:11 CDT CPT-81107 First Vx - Ix admin for Medicare patients 16:32:53 CDT CPT-05679 Boostrix Intramuscular Suspension 5-2.5-18.5 16:32:53 CDT CPT-23982 TB Skin Test 11:42:28 CDT CPT-77380 Tdap 7yrs or > 11:42:28 CDT CPT-J0696 Rocephin 1000 mg (Ceftriaxone) 17:43:43 [employer]OMATIC TIRE TE[employer] CPT-J1040 Depo Medrol 80 mg (Methyl Prednisolone Acetate) 17:43: 43 [employer]OMATIC TIRE TE[employer] CPT-J1100 Decadron 8mg (Dexamethasone) 17:43:42 AUTOMATIC TIRE TE[employer] CPT-10126 Abx/Therapy Injection 17:43:42 AUTOMATIC TIRE TESTER CPT-30240 Abx/Therapy Injection 17:43:42 AUTOMATIC TIRE TESTER CPT-J1040 Depo Medrol 80 mg (Methyl Prednisolone Acetate) 09:43: 34 AUTOMATIC TIRE TESTER CPT-J1100 Decadron 8mg (Dexamethasone) 09:43:34 AUTOMATIC TIRE TESTER CPT-J0696 Rocephin 1gm Inj Solr 09:43:34 AUTOMATIC TIRE TESTER CPT-29910 Wound Culture - LAB USE ONLY 14:00:21 CDT CPT-I/D I/D Abscess 09:16:37 CDT CPT-90215 Venipuncture Draw Fee 15:20:23 CDT CPT-34944 Microalbumin - LAB USE ONLY 16:02:19 CDT CPT-51575 CBC - LAB USE ONLY 16:02:19 CDT CPT-73966 Venipuncture Draw Fee 16:02:19 CDT CPT-G0438 Initial Annual Wellness Exam 08:10:28 CDT CPT-08030 Venipuncture Draw Fee 13:07:17 CDT CPT-G0008 Administration of Influenza Virus Vaccine 16:09:59 CDT CPT-56706 Fluzone Quadrivalent Intramuscular Suspension 0.5 ML 16: 09:59 CDT CPT-38896 Spec Collection and Handling Fee 15:05:50 CDT
--- OUTSIDE RECORDS SUMMARY | 2018-04-18 11:58 | XMS REPORT | Clinical Summary ---
Author Author Admin, AKUA Organization [employer] Address Unknown Phone Unavailable Allergies, Adverse Reactions, [...] essential hypertension Sinusitis - acute 461.9 Active rEin Garsia APRN Acute sinusitis, unspecified Acute confusion [...] Status Provider Patient Instruction GUAIFENESIN 600 MG [id number] 1 tab po q am GUAIFENESIN 40402532374 Active Jillina Frazell LABEL SEWER Active FLUTICASONE PROPIONATE 50 MCG/ACT SUSP 2 sprays per nostril bid for 1 week, then 1 spray bid FLUTICASONE PROPIONATE 93573628784 Active Jillina Frazell LABEL SEWER Active HYDRALAZINE HCL 25 MG ORAL TABS Take 1 tab BID. HYDRALAZINE HCL 69477374302 Active Jillina Frazell LABEL SEWER Active VITAMIN D3 17562 UNIT ORAL TABS 2 po weekly CHOLECALCIFEROL 35050902607 Active JONATHAN Moncada Active OXYCODONE HCL ER 10 MG ORAL T12A 1 tab po 3 times qd. OXYCODONE HCL 93070543954 Active Robbie Busby MD Active NITROSTAT 0.4 MG SUBL PRN NITROGLYCERIN 01395079938 No Longer Active Robbie Busby MD Active LORATADINE 10 MG TABS 1 tablet by mouth daily for congestion and allergies. LORATADINE 23338818577 No Longer Active Robbie Busby MD Active FLONASE 50 MCG/ACT SUSP 1 spray each nostril twice daily for allergies and runny nose FLUTICASONE PROPIONATE 12412210993 No Longer Active Robbie Busby MD Active FIORICET 50-300-40 MG ORAL CAPS take 1 tab po qday prn migraines. [id number] 79818092266 No Longer Active Robbie Busby MD Active VITAMIN D3 66055 UNIT CAPS 2 CAPS PO WEEKLY CHOLECALCIFEROL 46123345007 No Longer Active Robbie Busby MD Active CYCLOBENZAPRINE HCL 10 MG TABS 1 tablet by mouth three times daily as needed for muscle spasm/pain for 10 days CYCLOBENZAPRINE HCL 21189012019 No Longer Active Robbie Busby MD Active PREDNISONE 20 MG TAB take 3 tabs daily for 3 days, 2 tabs daily for 3 days, 1 tab daily for 3 days, 1/2 tab daily for 4 days PREDNISONE 70428919927 No Longer Active Erin Garsia APRN Active CLONIDINE HCL 0.2 MG ORAL TABS 1 TAB BY MOUTH EVERY 8 HOURS 12/29 CLONIDINE HCL 91491182470 No Longer Active Erin Garsia APRN Active MECLIZINE HCL 25 MG TAB one 4 times a day as needed for dizziness MECLIZINE HCL 04641321938 No Longer Active Erin Garsia APRN Active SPIRONOLACTONE 25 MG TAB 4 tablets by mouth daily SPIRONOLACTONE 26205360332 No Longer Active Erin Garsia APRN Active LEVAQUIN 500 MG TAB 1 tablet by mouth daily for 7 days LEVOFLOXACIN 26246890053 No Longer Active Erin Garsia APRN Active BACTRIM DS 800-160 MG TAB 1 tab by mouth twice daily TRIMETHOPRIM-SULFAMETHOXAZOLE 50081784476 No Longer Active Robbie Busby MD Active HYDRALAZINE HCL 50 MG ORAL TABS TWO BY MOUTH THREE TIMES DAILY HYDRALAZINE HCL 61762117303 No Longer Active Jillina Frazell LABEL SEWER Active HYDROCODONE-ACETAMINOPHEN 5-325 MG TABS 1 tab by mouth BID prn back pain 2013 HYDROCODONE-ACETAMINOPHEN 50633138137 No Longer Active Jillina Frazell LABEL SEWER Active HYDROCHLOROTHIAZIDE TABS Take one by mouth daily HYDROCHLOROTHIAZIDE TABS 99103084469 No Longer Active Jillina Frazell LABEL SEWER Active LAMISIL 125 MG ORAL PACK 1 TAB PO DAILY TERBINAFINE HCL 99108570184 No Longer Active Jillina Frazell LABEL SEWER Active TRILEPTAL 150 MG ORAL TABS 1 TAB PO Q HS OXCARBAZEPINE 69366068989 No Longer Active Jillina Frazell LABEL SEWER Active BETADINE 10 % EXT SOLN wash with solution to treat follicultis POVIDONE-IODINE 26726859341 No Longer Active Jillina Zulemal LABEL SEWER Active NYSTATIN 578521 UNIT/ML M/T SUSP 5mL po QID x 10 days NYSTATIN 77420727645 No Longer Active Erin Garsia APRN Active PREDNISONE 20 MG TAB 1 tablet twice daily for 2 days, then 1 tablet once daily for 2 days PREDNISONE 02561475891 No Longer Active Robbie Busby MD Active CEFDINIR 300 MG ORAL CAPS Take 1 cap po bid x 10 days CEFDINIR 88410062598 No Longer Active Robbie Busby MD Active AMLODIPINE BESYLATE 10 MG TABS 1 tablet by mouth daily AMLODIPINE BESYLATE 56826375677 Active Robbie Busby MD Active CARVEDILOL 25 MG TABS 1 & 1/2 TAB po BID CARVEDILOL 95034633690 Active Robbie Busby MD Active NEXIUM 40 MG CPDR 1 cap by mouth daily ESOMEPRAZOLE MAGNESIUM 56666332589 Active Robbie Busby MD Active PROTONIX 40 MG SOLR 1 po qday for acid reflux PANTOPRAZOLE SODIUM 34120624962 No Longer Active Gali Raida Active KEFLEX 500 MG CAP 1 po TID x 10 days CEPHALEXIN 13640184958 No Longer Active Robbie Busby MD Active TOPIRAMATE 50 MG ORAL TABS take 1 tab po BID for migraines. TOPIRAMATE 92203096563 Active Robbie Busby MD Active TEMAZEPAM 15 MG ORAL CAPS 1 TAB PO Q HS TEMAZEPAM 72428506040 Active Robbie Busby MD Active ALPRAZOLAM 2 MG ORAL TABS 1 TAB PO BID ALPRAZOLAM 31356828427 Active Robbie Busby MD Active FENOFIBRATE 145 MG TABS Take one by mouth daily FENOFIBRATE 42519093111 No Longer Active Robbie Busby MD Active SPIRONOLACTONE 50 MG TABS 1 tablet by mouth twice a day SPIRONOLACTONE 06646129169 No Longer Active Robbie Bsuby MD Active HYDRALAZINE HCL 25 MG TABS 1 tablet by mouth tid for hypertension HYDRALAZINE HCL 21132764626 No Longer Active Robbie Busby MD Active VIIBRYD 40 MG TABS take 1 tab po qday for depression. VILAZODONE HCL 90725610884 No Longer Active Robbie Busby MD Active TERBINAFINE HCL 250 MG TABS 1 tab po qday for foot infection 2014 TERBINAFINE HCL 30291833029 No Longer Active Robbie Busby MD Active GABAPENTIN 300 MG CAPS 1 po q hs for nerve pain GABAPENTIN 56446394245 Active Robbie Busby MD Active CHERATUSSIN AC 100-10 MG/5ML ORAL SOLN 7.5 mL PO q 4-6 hrs PRN cough GUAIFENESIN-CODEINE 32559550765 No Longer Active Robbie Busby MD Active AZITHROMYCIN 250 MG ORAL TABS 2 tablets PO today---then, 1 tablet PO daily x 4 more days (and 1 optional refill) AZITHROMYCIN 87158311446 No Longer Active Robbie Busby MD Active NORVASC 10 MG TAB 1 tablet by mouth daily AMLODIPINE BESYLATE 95275843408 No Longer Active Alex ALVAREZ Active IMDUR 60 MG TAB CR take 1 tab po qday for blood pressure ISOSORBIDE MONONITRATE Active Robbie Busby MD Active ISOSORBIDE DINITRATE 30 MG TABS Take one by mouth daily ISOSORBIDE DINITRATE 92716986408 No Longer Active Robbie Busby MD Active VIIBRYD 40 MG TABS 1 TA B PO DAILY VILAZODONE HCL 58674025069 Active Robbie Busby MD Active ZITHROMAX 250 MG TAB 2 po today, then 1 po q days 2-5 AZITHROMYCIN 09315326136 No Longer Active Robbie Busby MD Active [id number] 0.3 MG/24HR PTWK apply 2 patches q week for HTN CLONIDINE HCL 23653773100 Active Robbie Busby MD Active DOXAZOSIN MESYLATE 4 MG TABS Take one by mouth daily DOXAZOSIN MESYLATE 86898510760 Active Robbie Busby MD Active TOPROL XL 200 MG [id number] Take one by mouth daily METOPROLOL SUCCINATE 48939698575 Active Robbie Busby MD Active VENLAFAXINE HCL ER 150 MG [id number] Take one by mouth daily VENLAFAXINE HCL 33473255562 Active Robbie Busby MD Active LIPITOR 40 MG TABS Take one by mouth daily ATORVASTATIN CALCIUM 58181000237 Active Robbie Busby MD Active ISOSORBIDE DINITRATE 30 MG TABS Take one by mouth daily ISOSORBIDE DINITRATE 30 MG TABS 371730 ISOSORBIDE DINITRATE Inactive NORVASC 10 MG TAB 1 tablet by mouth daily NORVASC 10 MG TAB 740060 AMLODIPINE BESYLATE Inactive AZITHROMYCIN 250 MG ORAL TABS 2 tablets PO today---then, 1 tablet PO daily x 4 more days (and 1 optional refill) AZITHROMYCIN 250 MG ORAL TABS 9671768 AZITHROMYCIN Inactive CHERATUSSIN AC 100-10 MG/5ML ORAL SOLN 7.5 mL PO q 4-6 hrs PRN cough CHERATUSSIN AC 100-10 MG/5ML ORAL SOLN 777977 GUAIFENESIN- CODEINE Inactive VIIBRYD 40 MG TABS take 1 tab po qday for depression. VIIBRYD 40 MG TABS VILAZODONE HCL Inactive HYDRALAZINE HCL 25 MG TABS 1 tablet by mouth tid for hypertension HYDRALAZINE HCL 25 MG TABS 112935 HYDRALAZINE HCL Inactive SPIRONOLACTONE 50 MG TABS 1 tablet by mouth twice a day SPIRONOLACTONE 50 MG TABS 869623 SPIRONOLACTONE Inactive FENOFIBRATE 145 MG TABS Take one by mouth daily FENOFIBRATE 145 MG TABS 300510 FENOFIBRATE Inactive PROTONIX 40 MG SOLR 1 po qday for acid reflux PROTONIX 40 MG SOLR 374059 PANTOPRAZOLE SODIUM Inactive CEFDINIR 300 MG ORAL CAPS Take 1 cap po bid x 10 days CEFDINIR 300 MG ORAL CAPS 355142 CEFDINIR Inactive PREDNISONE 20 MG TAB 1 tablet twice daily for 2 days, then 1 tablet once daily for 2 days PREDNISONE 20 MG TAB 003111 PREDNISONE Inactive NYSTATIN 002956 UNIT/ML M/T SUSP 5mL po QID x 10 days NYSTATIN 570579 UNIT/ML M/T SUSP 735078 NYSTATIN Inactive BETADINE 10 % EXT SOLN wash with solution to treat follicultis BETADINE 10 % EXT SOLN 5374114 POVIDONE-IODINE Inactive TRILEPTAL 150 MG ORAL TABS 1 TAB PO Q HS TRILEPTAL 150 MG ORAL TABS 908494 OXCARBAZEPINE Inactive LAMISIL 125 MG ORAL PACK 1 TAB PO DAILY LAMISIL 125 MG ORAL PACK TERBINAFINE HCL Inactive HYDROCHLOROTHIAZIDE TABS Take one by mouth daily HYDROCHLOROTHIAZIDE TABS HYDROCHLOROTHIAZIDE TABS Inactive HYDROCODONE-ACETAMINOPHEN 5-325 MG TABS 1 tab by mouth BID prn back pain 2013 HYDROCODONE-ACETAMINOPHEN 5-325 MG TABS 221158 HYDROCODONE -ACETAMINOPHEN Inactive HYDRALAZINE HCL 50 MG ORAL TABS TWO BY MOUTH THREE TIMES DAILY HYDRALAZINE HCL 50 MG ORAL TABS 415839 HYDRALAZINE HCL Inactive LEVAQUIN 500 MG TAB 1 tablet by mouth daily for 7 days LEVAQUIN 500 MG TAB 251601 LEVOFLOXACIN Inactive SPIRONOLACTONE 25 MG TAB 4 tablets by mouth daily SPIRONOLACTONE 25 MG TAB 618624 SPIRONOLACTONE Inactive MECLIZINE HCL 25 MG TAB one 4 times a day as needed for dizziness MECLIZINE HCL 25 MG TAB 370071 MECLIZINE HCL Inactive CLONIDINE HCL 0.2 MG ORAL TABS 1 TAB BY MOUTH EVERY 8 HOURS 12/29 CLONIDINE HCL 0.2 MG ORAL TABS 057857 CLONIDINE HCL Inactive CYCLOBENZAPRINE HCL 10 MG TABS 1 tablet by mouth three times daily as needed for muscle spasm/pain for 10 days CYCLOBENZAPRINE HCL 10 MG TABS 536087 CYCLOBENZAPRINE HCL Inactive VITAMIN D3 62284 UNIT CAPS 2 CAPS PO WEEKLY VITAMIN D3 36612 UNIT CAPS CHOLECALCIFEROL Inactive FIORICET 50-300-40 MG ORAL CAPS take 1 tab po qday prn migraines. FIORICET 50-300-40 MG ORAL CAPS 755842 [id number] Inactive FLONASE 50 MCG/ACT SUSP 1 spray each nostril twice daily for allergies and runny nose FLONASE 50 MCG/ACT SUSP 8911685 FLUTICASONE PROPIONATE Inactive LORATADINE 10 MG TABS 1 tablet by mouth daily for congestion and allergies. LORATADINE 10 MG TABS 096563 LORATADINE Inactive NITROSTAT 0.4 MG SUBL PRN NITROSTAT 0.4 MG SUBL 530996 NITROGLYCERIN Inactive ZITHROMAX 250 MG TAB 2 po today, then 1 po q days 2-5 ZITHROMAX 250 MG TAB 2444919 AZITHROMYCIN Inactive TERBINAFINE HCL 250 MG TABS 1 tab po qday for foot infection 2014 TERBINAFINE HCL 250 MG TABS 615335 TERBINAFINE HCL Inactive KEFLEX 500 MG CAP 1 po TID x 10 days KEFLEX 500 MG CAP 907175 CEPHALEXIN Inactive BACTRIM DS 800-160 MG TAB 1 tab by mouth twice daily BACTRIM DS 800-160 MG TAB 039567 TRIMETHOPRIM-SULFAMETHOXAZOLE Inactive PREDNISONE 20 MG TAB take 3 tabs daily for 3 days, 2 tabs daily for 3 days, 1 tab daily for 3 days, 1/2 tab daily for 4 days PREDNISONE 20 MG TAB 345896 PREDNISONE Inactive Advance Directives Directive Description Start [...] AUTO - Chemistry sodium, serum 142 mmol/L 316-618 6863/07/17 carbon dioxide, venous blood 28.2 mmol/L 21.0-32.0 [...] % 11.0-15.0 platelet count 185 THOUSAND/UL 10*3/mm3 141-525 9036/04/14 mean platelet volume 10.9 fL 7.5-12.5 Lab Report: LIPID PANEL, TSH/899, T4, FREE/866 - Chemistry cholesterol, serum 220 mg/dL 799-211 1136/04/14 HDL cholesterol, serum 30 mg/dL > OR=40 triglyceride, serum, fasting 466 mg/dL <150 LDL cholesterol, serum SEE NOTE mg/dL (calc) mg/dL <130 cholesterol/HDL ratio, serum 7.3 (calc) < OR=5.0 Lab Report: MICROALB/CREAT W/RATIO - Chemistry albumin/creatinine ratio, urine < 30 mg/g mg/g{creat} 0-29 Lab Report: MICROALB/CREAT W/RATIO - Lab microalbumin, urine 80 0-19 Lab Report: VITAMIN D, 25-HYDROXY/55916 - Chemistry vitamin D 25-hydroxy, serum 25 ng/mL 30-100 Office Visit: Confusion, dizziness after fall - Basic LDL target level 130 mg/dL Office Visit: Confusion, dizziness after fall - Chemistry HDL cholesterol, serum, target level 40 mg/dL triglyceride, target level 150 mg/dL cholesterol, target level 200 mg/dL Encounters Code Encounter Date Provider Facility CPT-42501 Level 3 Est. Patient 09:00:37 CDT Rober Rodríguez [facility] CPT-63917 Level 3 Est. Patient 16:07:10 CDT Robbie Busby MD [facility] CPT-06882 Level 4 Est. Patient 11:56:16 CDT Erin Garsia [facility] CPT-19189 Level 3 Est. Patient 17:48:02 CDT Robbie Busby MD [facility] CPT-60250 Level 4 Est. 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 Patient 09:16:37 CDT Robbie Busby MD [facility] CPT-88018 Level 3 Est. Patient 19:38:43 CDT Robbie Busby MD [facility] CPT-34487 Level 3 Est. Patient 11:53:38 CDT Robbie Busby MD [facility] CPT-48809 Level 4 Est. Patient 12:52:22 CDT Rober Rodríguez [facility] CPT-77478 Level 4 Est. Patient 22:55:17 CDT Robbie Busby MD [facility] CPT-14469 Level 3 Est. Patient 12:38:24 CDT Desmond Diaz DO [facility] CPT-06735 Level 4 Est. 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 Patient 14:50:10 CDT Robbie Busby MD [facility] CPT-92704 Level 4 Est. Patient 23:30:43 CDT Robbie Busby MD [facility] CPT-16153 Level 4 Est. Patient 10:30:43 CDT Robbie Busby MD [facility] CPT-42641 Level 3 Est. Patient 17:08:12 CDT Alex ALVAREZ [facility] CPT-54755 Level 4 Est. Patient 17:51:38 CDT Robbie Busby MD [facility] CPT-91497 Level 4 Est. Patient 14:00:21 CDT Robbie Busby MD [facility] CPT-94157 Level 4 Est. Patient 12:46:48 CDT Robbie Busby MD [facility] CPT-94501 Level 4 Est. Patient 13:34:33 CDT Robbie Busby MD [facility] CPT-57737 Level 4 Est. Patient 16:58:28 CDT Robbie Busby MD [facility] CPT-24706 Level 3 Est. Patient 19:36:53 CDT Alex Shaw [facility] CPT-52600 Level 3 Est. Patient 12:58:15 CDT Robbie Busby MD [facility] Procedures Code Procedure Name Date Entry Date Standard Description CPT-87038 Venipuncture Draw Fee 14:39:06 CDT CPT-78588 Ribs unilateral 2V - XRAY USE ONLY 12:10:11 CDT CPT-03030 First Vx - Ix admin for Medicare patients 16:32:53 CDT CPT-87097 Boostrix Intramuscular Suspension 5-2.5-18.5 16:32:53 CDT CPT-03452 TB Skin Test 11:42:28 CDT CPT-49597 Tdap 7yrs or > 11:42:28 CDT CPT-J0696 Rocephin 1000 mg (Ceftriaxone) 17:43:43 SENIOR WIND [employer]URBINE TECHNICIAN CPT-J1040 Depo Medrol 80 mg (Methyl Prednisolone Acetate) 17:43: 43 SENIOR WIND TURBINE TECHNICIAN CPT-J1100 Decadron 8mg (Dexamethasone) 17:43:42 SENIOR WIND TURBINE TECHNICIAN CPT-70969 Abx/Therapy Injection 17:43:42 SENIOR WIND TURBINE TECHNICIAN CPT-66831 Abx/Therapy Injection 17:43:42 SENIOR WIND TURBINE TECHNICIAN CPT-J1040 Depo Medrol 80 mg (Methyl Prednisolone Acetate) 09:43: 34 SENIOR WIND TURBINE TECHNICIAN CPT-J1100 Decadron 8mg (Dexamethasone) 09:43:34 SENIOR WIND TURBINE TECHNICIAN CPT-J0696 Rocephin 1gm Inj Solr 09:43:34 SENIOR WIND [employer]URBINE TECHNICIAN CPT-91520 Wound Culture - LAB USE ONLY 14:00:21 CDT CPT-I/D I/D Abscess 09:16:37 CDT CPT-80682 Venipuncture Draw Fee 15:20:23 CDT CPT-84379 Microalbumin - LAB USE ONLY 16:02:19 CDT CPT-79723 CBC - LAB USE ONLY 16:02:19 CDT CPT-10694 Venipuncture Draw Fee 16:02:19 CDT CPT-G0438 Initial Annual Wellness Exam 08:10:28 CDT CPT-66386 Venipuncture Draw Fee 13:07:17 CDT CPT-G0008 Administration of Influenza Virus Vaccine 16:09:59 CDT CPT-58334 Fluzone Quadrivalent Intramuscular Suspension 0.5 ML 16: 09:59 CDT CPT-38826 Spec Collection and Handling Fee 15:05:50 CDT
--- OUTSIDE RECORDS SUMMARY | 2018-04-18 11:58 | XMS REPORT | Clinical Summary ---
Author Author Admin, AKUA Organization [facility] Address Unknown Phone Unavailable Allergies, Adverse [...] unspecified Low back pain, acute 724.2 Active oRbbie Busby MD Lumbago Low back pain, chronic [...] 1 cap by mouth daily ESOMEPRAZOLE MAGNESIUM 36824195985 Active Gali Rajuan carlos Active PROTONIX 40 MG SOLR 1 po qday for acid reflux PANTOPRAZOLE SODIUM 94679334578 No Longer Active Gali Negro Active BETADINE 10 % EXT SOLN wash with solution to treat follicultis POVIDONE-IODINE 54201884227 Active Robbie Busyb MD Active KEFLEX 500 MG CAP 1 po TID x 10 days CEPHALEXIN 12797351123 No Longer Active Robbie Busby MD Active FIORICET 50-300-40 MG ORAL CAPS take 1 tab po qday prn migraines. [id number] 35095951875 Active Robbie Busby MD Active TOPIRAMATE 50 MG ORAL TABS take 1 tab po BID for migraines. TOPIRAMATE 11259790934 Active Robbie Busby MD Active HYDRALAZINE HCL 50 MG ORAL TABS TWO BY MOUTH THREE TIMES DAILY HYDRALAZINE HCL 03749311716 Active Robbie Busby MD Active MECLIZINE HCL 25 MG TAB one 4 times a day as needed for dizziness MECLIZINE HCL 89399340584 Active Robbie Busby MD Active TRILEPTAL 150 MG ORAL TABS 1 TAB PO Q HS OXCARBAZEPINE 17516742536 Active Robbie Busby MD Active TEMAZEPAM 15 MG ORAL CAPS 1 TAB PO Q HS TEMAZEPAM 10553182609 Active Robbie Busby MD Active ALPRAZOLAM 2 MG ORAL TABS 1 TAB PO BID ALPRAZOLAM 02171811605 Active Robbie Busby MD Active FENOFIBRATE 145 MG TABS Take one by mouth daily FENOFIBRATE 23048948426 No Longer Active Robbie Busby MD Active LAMISIL 125 MG ORAL PACK 1 TAB PO DAILY TERBINAFINE HCL 01644682205 Active Robbie Busby MD Active SPIRONOLACTONE 50 MG TABS 1 tablet by mouth twice a day SPIRONOLACTONE 12358103015 No Longer Active Robbie Busby MD Active HYDRALAZINE HCL 25 MG TABS 1 tablet by mouth tid for hypertension HYDRALAZINE HCL 49878721707 No Longer Active Robbie Busby MD Active VIIBRYD 40 MG TABS take 1 tab po qday for depression. VILAZODONE HCL 19666002191 No Longer Active Robbie Busby MD Active TERBINAFINE HCL 250 MG TABS 1 tab po qday for foot infection 2014 TERBINAFINE HCL 48359894733 No Longer Active Robbie Busby MD Active GABAPENTIN 300 MG CAPS 1 po q hs for nerve pain GABAPENTIN 45211983727 Active Robbie Busby MD Active FLONASE 50 MCG/ACT SUSP 1 spray each nostril twice daily for allergies and runny nose FLUTICASONE PROPIONATE 72166530041 Active Robbie Busby MD Active CHERATUSSIN AC 100-10 MG/5ML ORAL SOLN 7.5 mL PO q 4-6 hrs PRN cough GUAIFENESIN-CODEINE 85679610666 No Longer Active Robbie Busby MD Active AZITHROMYCIN 250 MG ORAL TABS 2 tablets PO today---then, 1 tablet PO daily x 4 more days (and 1 optional refill) AZITHROMYCIN 20690092356 No Longer Active Robbie Busby MD Active CLONIDINE HCL 0.2 MG ORAL TABS 1 TAB BY MOUTH EVERY 8 HOURS CLONIDINE HCL 33202641047 Active Robbie Busby MD Active HYDROCHLOROTHIAZIDE TABS Take one by mouth daily HYDROCHLOROTHIAZIDE TABS 56581412303 Active Alex ALVAREZ Active NORVASC 10 MG TAB 1 tablet by mouth daily AMLODIPINE BESYLATE 55983633297 No Longer Active Alex ALVAREZ Active IMDUR 60 MG TAB CR take 1 tab po qday for blood pressure ISOSORBIDE MONONITRATE Active Robbie Busby MD Active ISOSORBIDE DINITRATE 30 MG TABS Take one by mouth daily ISOSORBIDE DINITRATE 95818105162 No Longer Active Robbie Busby MD Active VIIBRYD 40 MG TABS 1 TA B PO DAILY VILAZODONE HCL 16386789918 Active Robbie Busby MD Active LORATADINE 10 MG TABS 1 tablet by mouth daily for congestion and allergies. LORATADINE 24641192248 Active Robbie Busby MD Active ZITHROMAX 250 MG TAB 2 po today, then 1 po q days 2-5 AZITHROMYCIN 46934037380 No Longer Active Robbie Busby MD Active HYDROCODONE-ACETAMINOPHEN 5-325 MG TABS 1 tab by mouth BID prn back pain 2013 HYDROCODONE-ACETAMINOPHEN 62066085374 Active Robbie Busby MD Active [id number] 0.3 MG/24HR PTWK apply 2 patches q week for HTN CLONIDINE HCL 54121945757 Active Robbie Busby MD Active NITROSTAT 0.4 MG SUBL PRN NITROGLYCERIN 76518683921 Active Robbie Busby MD Active DOXAZOSIN MESYLATE 4 MG TABS Take one by mouth daily DOXAZOSIN MESYLATE 86253385979 Active Robbie Busby MD Active TOPROL XL 200 MG [id number] Take one by mouth daily METOPROLOL SUCCINATE 49695191476 Active Robbie Busby MD Active VENLAFAXINE HCL ER 150 MG [id number] Take one by mouth daily VENLAFAXINE HCL 17954290082 Active Robbie Busby MD Active LIPITOR 40 MG TABS Take one by mouth daily ATORVASTATIN CALCIUM 80264691794 Active Robbie Busby MD Active ISOSORBIDE DINITRATE 30 MG TABS Take one by mouth daily ISOSORBIDE DINITRATE 30 MG TABS 045079 ISOSORBIDE DINITRATE Inactive NORVASC 10 MG TAB 1 tablet by mouth daily NORVASC 10 MG TAB 328386 AMLODIPINE BESYLATE Inactive AZITHROMYCIN 250 MG ORAL TABS 2 tablets PO today---then, 1 tablet PO daily x 4 more days (and 1 optional refill) AZITHROMYCIN 250 MG ORAL TABS 0773363 AZITHROMYCIN Inactive CHERATUSSIN AC 100-10 MG/5ML ORAL SOLN 7.5 mL PO q 4-6 hrs PRN cough CHERATUSSIN AC 100-10 MG/5ML ORAL SOLN 405256 GUAIFENESIN- CODEINE Inactive VIIBRYD 40 MG TABS take 1 tab po qday for depression. VIIBRYD 40 MG TABS VILAZODONE HCL Inactive HYDRALAZINE HCL 25 MG TABS 1 tablet by mouth tid for hypertension HYDRALAZINE HCL 25 MG TABS 543510 HYDRALAZINE HCL Inactive SPIRONOLACTONE 50 MG TABS 1 tablet by mouth twice a day SPIRONOLACTONE 50 MG TABS 857660 SPIRONOLACTONE Inactive FENOFIBRATE 145 MG TABS Take one by mouth daily FENOFIBRATE 145 MG TABS 747139 FENOFIBRATE Inactive PROTONIX 40 MG SOLR 1 po qday for acid reflux PROTONIX 40 MG SOLR PANTOPRAZOLE SODIUM Inactive ZITHROMAX 250 MG TAB 2 po today, then 1 po q days 2-5 ZITHROMAX 250 MG TAB 1785845 AZITHROMYCIN Inactive TERBINAFINE HCL 250 MG TABS 1 tab po qday for foot infection 2014 TERBINAFINE HCL 250 MG TABS 829515 TERBINAFINE HCL Inactive KEFLEX 500 MG CAP 1 po TID x 10 days KEFLEX 500 MG CAP 833761 CEPHALEXIN Inactive Vital Signs Date Name Value [...] Outside labs entered on flowsheet - Chemistry potassium, serum 3.5 mmol/L sodium, serum 140 mmol/L blood glucose 98 mg/dL creatinine, serum 1.49 mg/dL Chart Maintenance: Outside labs entered on flowsheet - Hematology platelet count 285 10*3/mm3 hemoglobin, blood 14.0 g/dL leukocyte count, blood 8.9 10*3/mm3 Lab Report: Creatinine - Chemistry creatinine, serum 1.40 mg/dL 0.60-1.30 Lab Report: Lipid Panel, HEPATIC PANEL - Chemistry triglyceride, serum, fasting 429 mg/dL 30-200 HDL cholesterol, serum 25 mg/dL 32-96 LDL cholesterol, serum 100 mg/dL 0-130 aspartate aminotransferase (SGOT), serum 19 U/L 15-37 alanine aminotransferase (SGPT), serum 32 U/L 12-78 cholesterol, serum 211 mg/dL 170-293 0639/08/31 bilirubin, serum, total 0.70 mg/dL 0.00-1.00 Lab Report: Prostatic Specific Ag - Chemistry prostate specific antigen 1.31 ng/mL 0.00-4.00 Encounters Code Encounter Date Provider Facility CPT-68429 Level 4 Est. 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 Patient 14:50:10 CDT Robbie Busby MD [facility] CPT-65177 Level 4 Est. Patient 23:30:43 CDT Robbie Busby MD [facility] CPT-26783 Level 4 Est. Patient 10:30:43 CDT Robbie Busby MD [facility] CPT-21820 Level 3 Est. Patient 17:08:12 CDT Alex Shaw [facility] CPT-06074 Level 4 Est. Patient 17:51:38 CDT Robbie Busby MD [facility] CPT-95093 Level 4 Est. Patient 14:00:21 CDT Robbie Busby MD [facility] CPT-31430 Level 4 Est. Patient 12:46:48 CDT Robbie Busby MD [facility] CPT-24401 Level 4 Est. Patient 13:34:33 CDT Robbie Busby MD [facility] CPT-36875 Level 4 Est. Patient 16:58:28 CDT Robbie Busby MD [facility] CPT-24603 Level 3 Est. Patient 19:36:53 CDT Alex ALVAREZ [facility] CPT-44409 Level 3 Est. Patient 12:58:15 CDT Robbie Busby MD [facility] Procedures Code Procedure Name Date Entry Date Standard Description CPT-G0008 Administration of Influenza Virus Vaccine 16:09:59 CDT CPT-66809 Fluzone Quadrivalent Intramuscular Suspension 0.5 ML 16: 09:59 CDT CPT-01910 Spec Collection and Handling Fee 15:05:50 CDT
--- OUTSIDE RECORDS SUMMARY | 2018-04-18 11:59 | XMS REPORT | Clinical Summary ---
Author Author Admin, Nicolas Organization [facility] Address Unknown Phone Unavailable Allergies, Adverse Reactions, [...] initial episode of care ( History of) Medication List Medication Instructions Start Date Stop Date Generic Name NDC Status Provider Patient Instruction PREDNISONE 20 MG TAB 1 tablet twice daily for 2 days, then 1 tablet once daily for 2 days PREDNISONE 70762827230 No Longer Active Robbie Busby MD Active CEFDINIR 300 MG ORAL CAPS Take 1 cap po bid x 10 days CEFDINIR 65183714940 No Longer Active Robbie Busby MD Active NYSTATIN 698471 UNIT/ML M/T SUSP 5mL po QID x 10 days NYSTATIN 34253681028 Active Gali Negro Active AMLODIPINE BESYLATE 10 MG TABS 1 tablet by mouth daily AMLODIPINE BESYLATE 87835357553 Active Robbie Busby MD Active CARVEDILOL 25 MG TABS 1 & 1/2 TAB po BID CARVEDILOL 12416183269 Active Robbie Busby MD Active VITAMIN D3 19243 UNIT CAPS 2 CAPS PO WEEKLY CHOLECALCIFEROL 18519801307 Active Erin Garsia CYCLE ANALYST Active NEXIUM 40 MG CPDR 1 cap by mouth daily ESOMEPRAZOLE MAGNESIUM 48447806190 Active Gali Negro Active PROTONIX 40 MG SOLR 1 po qday for acid reflux PANTOPRAZOLE SODIUM 09059887121 No Longer Active Galileonila Negro Active BETADINE 10 % EXT SOLN wash with solution to treat follicultis POVIDONE-IODINE 96538377588 Active Robbie Busby MD Active KEFLEX 500 MG CAP 1 po TID x 10 days CEPHALEXIN 73281671081 No Longer Active Robbie Busby MD Active FIORICET 50-300-40 MG ORAL CAPS take 1 tab po qday prn migraines. [id number] 10310680925 Active Robbie Busby MD Active TOPIRAMATE 50 MG ORAL TABS take 1 tab po BID for migraines. TOPIRAMATE 77028390245 Active Robbie Busby MD Active HYDRALAZINE HCL 50 MG ORAL TABS TWO BY MOUTH THREE TIMES DAILY HYDRALAZINE HCL 07916362661 Active Robbie Busby MD Active MECLIZINE HCL 25 MG TAB one 4 times a day as needed for dizziness MECLIZINE HCL 00122866263 Active Robbie Busby MD Active TRILEPTAL 150 MG ORAL TABS 1 TAB PO Q HS OXCARBAZEPINE 15371099179 Active Robbie Busby MD Active TEMAZEPAM 15 MG ORAL CAPS 1 TAB PO Q HS TEMAZEPAM 14183926781 Active Robbie Busby MD Active ALPRAZOLAM 2 MG ORAL TABS 1 TAB PO BID ALPRAZOLAM 20045515102 Active Robbie Busby MD Active FENOFIBRATE 145 MG TABS Take one by mouth daily FENOFIBRATE 66480698015 No Longer Active Robbie Busby MD Active LAMISIL 125 MG ORAL PACK 1 TAB PO DAILY TERBINAFINE HCL 09846577275 Active Robbie Busby MD Active SPIRONOLACTONE 50 MG TABS 1 tablet by mouth twice a day SPIRONOLACTONE 39343697465 No Longer Active Robbie Busby MD Active HYDRALAZINE HCL 25 MG TABS 1 tablet by mouth tid for hypertension HYDRALAZINE HCL 62097231568 No Longer Active Robbie Busby MD Active VIIBRYD 40 MG TABS take 1 tab po qday for depression. VILAZODONE HCL 38206764441 No Longer Active Robbie Busby MD Active TERBINAFINE HCL 250 MG TABS 1 tab po qday for foot infection 2014 TERBINAFINE HCL 04178903360 No Longer Active Robbie Busby MD Active GABAPENTIN 300 MG CAPS 1 po q hs for nerve pain GABAPENTIN 92413566468 Active Robbie Busby MD Active FLONASE 50 MCG/ACT SUSP 1 spray each nostril twice daily for allergies and runny nose FLUTICASONE PROPIONATE 70193310779 Active Robbie Busby MD Active CHERATUSSIN AC 100-10 MG/5ML ORAL SOLN 7.5 mL PO q 4-6 hrs PRN cough GUAIFENESIN-CODEINE 87554463769 No Longer Active Robbie Busby MD Active AZITHROMYCIN 250 MG ORAL TABS 2 tablets PO today---then, 1 tablet PO daily x 4 more days (and 1 optional refill) AZITHROMYCIN 07694033256 No Longer Active Robbie Busby MD Active CLONIDINE HCL 0.2 MG ORAL TABS 1 TAB BY MOUTH EVERY 8 HOURS CLONIDINE HCL 75454523688 Active Robbie Busby MD Active HYDROCHLOROTHIAZIDE TABS Take one by mouth daily HYDROCHLOROTHIAZIDE TABS 52131805227 Active Alex ALVAREZ Active NORVASC 10 MG TAB 1 tablet by mouth daily AMLODIPINE BESYLATE 42654335062 No Longer Active Alex ALVAREZ Active IMDUR 60 MG TAB CR take 1 tab po qday for blood pressure ISOSORBIDE MONONITRATE Active Robbie Busby MD Active ISOSORBIDE DINITRATE 30 MG TABS Take one by mouth daily ISOSORBIDE DINITRATE 45585951051 No Longer Active Robbie Busby MD Active VIIBRYD 40 MG TABS 1 TA B PO DAILY VILAZODONE HCL 26013375650 Active Erin Garsia APRN Active LORATADINE 10 MG TABS 1 tablet by mouth daily for congestion and allergies. LORATADINE 16015977394 Active Robbie Busby MD Active ZITHROMAX 250 MG TAB 2 po today, then 1 po q days 2-5 AZITHROMYCIN 88999729588 No Longer Active Robbie Busby MD Active HYDROCODONE-ACETAMINOPHEN 5-325 MG TABS 1 tab by mouth BID prn back pain 2013 HYDROCODONE-ACETAMINOPHEN 76555016048 Active Robbie Busby MD Active [id number] 0.3 MG/24HR PTWK apply 2 patches q week for HTN CLONIDINE HCL 13786129005 Active Robbie Busby MD Active NITROSTAT 0.4 MG SUBL PRN NITROGLYCERIN 02963945120 Active Robbie Busby MD Active DOXAZOSIN MESYLATE 4 MG TABS Take one by mouth daily DOXAZOSIN MESYLATE 32760996894 Active Robbie Busby MD Active TOPROL XL 200 MG [id number] Take one by mouth daily METOPROLOL SUCCINATE 67092833957 Active Robbie Busby MD Active VENLAFAXINE HCL ER 150 MG [id number] Take one by mouth daily VENLAFAXINE HCL 40123937022 Active Robbie Busby MD Active LIPITOR 40 MG TABS Take one by mouth daily ATORVASTATIN CALCIUM 80239241154 Active Robbie Busby MD Active ISOSORBIDE DINITRATE 30 MG TABS Take one by mouth daily ISOSORBIDE DINITRATE 30 MG TABS 032816 ISOSORBIDE DINITRATE Inactive NORVASC 10 MG TAB 1 tablet by mouth daily NORVASC 10 MG TAB 160901 AMLODIPINE BESYLATE Inactive AZITHROMYCIN 250 MG ORAL TABS 2 tablets PO today---then, 1 tablet PO daily x 4 more days (and 1 optional refill) AZITHROMYCIN 250 MG ORAL TABS 1087286 AZITHROMYCIN Inactive CHERATUSSIN AC 100-10 MG/5ML ORAL SOLN 7.5 mL PO q 4-6 hrs PRN cough CHERATUSSIN AC 100-10 MG/5ML ORAL SOLN 163913 GUAIFENESIN- CODEINE Inactive VIIBRYD 40 MG TABS take 1 tab po qday for depression. VIIBRYD 40 MG TABS VILAZODONE HCL Inactive HYDRALAZINE HCL 25 MG TABS 1 tablet by mouth tid for hypertension HYDRALAZINE HCL 25 MG TABS 173581 HYDRALAZINE HCL Inactive SPIRONOLACTONE 50 MG TABS 1 tablet by mouth twice a day SPIRONOLACTONE 50 MG TABS 682738 SPIRONOLACTONE Inactive FENOFIBRATE 145 MG TABS Take one by mouth daily FENOFIBRATE 145 MG TABS 472295 FENOFIBRATE Inactive PROTONIX 40 MG SOLR 1 po qday for acid reflux PROTONIX 40 MG SOLR 952259 PANTOPRAZOLE SODIUM Inactive CEFDINIR 300 MG ORAL CAPS Take 1 cap po bid x 10 days CEFDINIR 300 MG ORAL CAPS 205472 CEFDINIR Inactive PREDNISONE 20 MG TAB 1 tablet twice daily for 2 days, then 1 tablet once daily for 2 days PREDNISONE 20 MG TAB 413506 PREDNISONE Inactive ZITHROMAX 250 MG TAB 2 po today, then 1 po q days 2-5 ZITHROMAX 250 MG TAB 8492514 AZITHROMYCIN Inactive TERBINAFINE HCL 250 MG TABS 1 tab po qday for foot infection 2014 TERBINAFINE HCL 250 MG TABS 777231 TERBINAFINE HCL Inactive KEFLEX 500 MG CAP 1 po TID x 10 days KEFLEX 500 MG CAP 654310 CEPHALEXIN Inactive Vital Signs Date Name Value [...] Acid - Chemistry sodium, serum 139 mmol/L 926-411 9554/04/22 carbon dioxide, venous blood 29.4 mmol/L 21.0-32.0 [...] PANEL - Chemistry cholesterol, serum 211 mg/dL 370-624 4026/08/31 triglyceride, serum, fasting 429 mg/dL 30-200 HDL [...] to Follow Negative Lab Report: VITAMIN D, 25-HYDROXY/74899 - Chemistry vitamin D 25-hydroxy, serum 23 ng/mL 30-100 Encounters Code Encounter Date Provider Facility CPT-45226 Level 4 Est. Patient 22:55:17 CDT Robbie Busby MD [facility] CPT-88088 Level 3 Est. Patient 12:38:24 CDT Desmond Diaz DO [facility] CPT-49383 Level 4 Est. Patient 11:25:03 RECORD CHANGER TESTER Robbie Busby MD [facility] CPT-61659 Level 4 Est. Patient 14:50:10 CDT Robbie Busby MD [facility] CPT-17582 Level 4 Est. Patient 23:30:43 CDT Robbie Busby MD [facility] CPT-67837 Level 4 Est. Patient 10:30:43 CDT Robbie Busby MD [facility] CPT-38504 Level 3 Est. Patient 17:08:12 CDT Alex ALVAREZ [facility] CPT-39649 Level 4 Est. Patient 17:51:38 CDT Robbie Busby MD [facility] CPT-00347 Level 4 Est. Patient 14:00:21 CDT Robbie Busby MD [facility] CPT-88119 Level 4 Est. Patient 12:46:48 CDT Robbie Busby MD [facility] CPT-14250 Level 4 Est. Patient 13:34:33 CDT Robbie Busby MD [facility] CPT-51124 Level 4 Est. Patient 16:58:28 CDT Robbie Busby MD [facility] CPT-95648 Level 3 Est. Patient 19:36:53 CDT Alex ALVAREZ [facility] CPT-14265 Level 3 Est. Patient 12:58:15 CDT Robbie Busby MD [facility] Procedures Code Procedure Name Date Entry Date Standard Description CPT-24202 Venipuncture Draw Fee 13:07:17 CDT CPT-G0008 Administration of Influenza Virus Vaccine 16:09:59 CDT CPT-92960 Fluzone Quadrivalent Intramuscular Suspension 0.5 ML 16: 09:59 CDT CPT-45915 Spec Collection and Handling Fee 15:05:50 CDT
--- OUTSIDE RECORDS SUMMARY | 2018-04-18 12:00 | XMS REPORT | Clinical Summary ---
Author Author Admin, E Organization [facility] Address Unknown Phone Unavailable Allergies, Adverse Reactions, [...] unspecified sites URI 465.9 Active Rober Rodríguez [employer] HARVESTER Acute upper respiratory infections of unspecified site Hypertension 401.9 Active Rober Rodríguez [employer] HAR[employer] Unspecified essential hypertension Sinusitis - acute 461.9 [...] pain, chronic 724.2 Active Robbie Busby MD [facility] Medication List Medication Instructions Start Date Stop Date Generic Name NDC Status Provider Patient Instruction GUAIFENESIN ER 600 MG ORAL TABLET EXTENDED RELEASE 12 HOUR 1 tab po q am 2016 GUAIFENESIN [id number] No Longer Active Robbie Busby MD Active DIVALPROEX SODIUM ER 500 MG ORAL TABLET EXTENDED RELEASE 24 HOUR Once daily DIVALPROEX SODIUM 18717663856 Active Robbie Busby MD Active DEPO-TESTOSTERONE 200 MG/ML INTRAMUSCULAR SOLUTION 1 IM Injections every 2 weeks for low testosterone TESTOSTERONE CYPIONATE 22190299072 Active Zulema Blank LPN Active CYCLOBENZAPRINE HCL 10 MG ORAL TABLET 1 po TID PRN muscle spasm/pain for 10 days CYCLOBENZAPRINE HCL 75994509862 Active JONATHAN Moncada Active FLUTICASONE PROPIONATE 50 MCG/ACT NASAL SUSPENSION 2 sprays per nostril bid for 1 week, then 1 spray bid FLUTICASONE PROPIONATE 16041966927 Active Rober Rodríguez [employer] HARVESTER Active HYDRALAZINE HCL 25 MG ORAL TABLET Take 1 tab BID. HYDRALAZINE HCL 14554536141 Active Rober Rodríguez APRN Active VITAMIN D3 58367 UNIT ORAL TABLET 2 po weekly CHOLECALCIFEROL 26108628582 Active Robbie Busby MD Active OXYCODONE HCL ER 10 MG ORAL TABLET ER 12 HOUR ABUSE-DETERRENT 1 tab po 3 times qd. OXYCODONE HCL 61472209516 Active Robbie Busby MD Active NITROSTAT 0.4 MG SUBLINGUAL TABLET SUBLINGUAL PRN NITROGLYCERIN 49786422830 No Longer Active Robbie Busby MD Active LORATADINE 10 MG ORAL TABLET 1 tablet by mouth daily for congestion and allergies. LORATADINE 63582752453 No Longer Active Robbie Busby MD Active FLONASE 50 MCG/ACT NASAL SUSPENSION 1 spray each nostril twice daily for allergies and runny nose FLUTICASONE PROPIONATE 36779910640 No Longer Active Robbie Busby MD Active FIORICET 50-300-40 MG ORAL CAPSULE take 1 tab po qday prn migraines. [id number] 70283387505 No Longer Active Robbie Busby MD Active VITAMIN D3 16956 UNIT ORAL CAPSULE 2 CAPS PO WEEKLY CHOLECALCIFEROL 19471962566 No Longer Active Robbie Busby MD Active CYCLOBENZAPRINE HCL 10 MG ORAL TABLET 1 tablet by mouth three times daily as needed for muscle spasm/pain for 10 days CYCLOBENZAPRINE HCL 47714030457 No Longer Active Robbie Busby MD Active PREDNISONE 20 MG ORAL TABLET take 3 tabs daily for 3 days, 2 tabs daily for 3 days, 1 tab daily for 3 days, 1/2 tab daily for 4 days PREDNISONE 99770633493 No Longer Active Erin Garsia APRN Active CLONIDINE HCL 0.2 MG ORAL TABLET 1 TAB BY MOUTH EVERY 8 HOURS CLONIDINE HCL 39450754593 No Longer Active Erin Garsia APRN Active MECLIZINE HCL 25 MG ORAL TABLET one 4 times a day as needed for dizziness MECLIZINE HCL 08639600533 No Longer Active Erin Garsia APRN Active SPIRONOLACTONE 25 MG ORAL TABLET 4 tablets by mouth daily SPIRONOLACTONE 30859999764 No Longer Active Erin Garsia APRN Active LEVAQUIN 500 MG ORAL TABLET 1 tablet by mouth daily for 7 days LEVOFLOXACIN 83409730537 No Longer Active Erin Garsia APRN Active BACTRIM DS 800-160 MG ORAL TABLET 1 tab by mouth twice daily 2015 TRIMETHOPRIM-SULFAMETHOXAZOLE 02999175907 No Longer Active Robbie Busby MD Active HYDRALAZINE HCL 50 MG ORAL TABLET TWO BY MOUTH THREE TIMES DAILY HYDRALAZINE HCL 09086792190 No Longer Active Jillld Rodríguez APRN Active HYDROCODONE-ACETAMINOPHEN 5-325 MG ORAL TABLET 1 tab by mouth BID prn back pain HYDROCODONE-ACETAMINOPHEN 69371061640 No Longer Active Jillina Anne GONZALEZN Active HYDROCHLOROTHIAZIDE TABLET Take one by mouth daily HYDROCHLOROTHIAZIDE TABS 05144152081 No Longer Active Jillld Rodríguez APRN Active LAMISIL 125 MG ORAL PACKET 1 TAB PO DAILY TERBINAFINE HCL 73273991103 No Longer Active Andrellld Rodríguez APRN Active TRILEPTAL 150 MG ORAL TABLET 1 TAB PO Q HS OXCARBAZEPINE 05526187095 No Longer Active Rober Rodríguez APRN Active BETADINE 10 % EXTERNAL SOLUTION wash with 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 07/29 POVIDONE-IODINE 81051209754 No Longer Active Rober Rodríguez APRN Active NYSTATIN 618457 UNIT/ML MOUTH/THROAT SUSPENSION 5mL po QID x 10 days NYSTATIN 09126849262 No Longer Active Erin Garsia APRN Active PREDNISONE 20 MG ORAL TABLET 1 tablet twice daily for 2 days, then 1 tablet once daily for 2 days PREDNISONE 71692840963 No Longer Active Robbie Busby MD Active CEFDINIR 300 MG ORAL CAPSULE Take 1 cap po bid x 10 days CEFDINIR 37910644945 No Longer Active Robbie Busby MD Active AMLODIPINE BESYLATE 10 MG ORAL TABLET 1 tablet by mouth daily AMLODIPINE BESYLATE 75512022429 Active Robbie Busby MD Active CARVEDILOL 25 MG ORAL TABLET 1 & 1/2 TAB po BID CARVEDILOL 20856678267 Active Robbie Busby MD Active NEXIUM 40 MG ORAL CAPSULE DELAYED RELEASE 1 cap by mouth daily ESOMEPRAZOLE MAGNESIUM 45741374173 Active Robbie Busby MD Active PROTONIX 40 MG INTRAVENOUS SOLUTION RECONSTITUTED 1 po qday for acid reflux PANTOPRAZOLE SODIUM 57312538224 No Longer Active Gali Raida Active KEFLEX 500 MG ORAL CAPSULE 1 po TID x 10 days CEPHALEXIN 18108093528 No Longer Active Robbie Busby MD Active TOPIRAMATE 50 MG ORAL TABLET take 1 tab po BID for migraines. TOPIRAMATE 39567969312 Active Robbie Busby MD Active TEMAZEPAM 15 MG ORAL CAPSULE 1 TAB PO Q HS TEMAZEPAM 66292945598 Active Robbie Busby MD Active ALPRAZOLAM 2 MG ORAL TABLET 1 TAB PO BID ALPRAZOLAM 88502673301 Active Robbie Busby MD Active FENOFIBRATE 145 MG ORAL TABLET Take one by mouth daily FENOFIBRATE 34157181619 No Longer Active Robbie Busby MD Active SPIRONOLACTONE 50 MG ORAL TABLET 1 tablet by mouth twice a day SPIRONOLACTONE 42678593444 No Longer Active Robbie Busby MD Active HYDRALAZINE HCL 25 MG ORAL TABLET 1 tablet by mouth tid for hypertension 2013 HYDRALAZINE HCL 63550207252 No Longer Active Robbie Busby MD Active VIIBRYD 40 MG ORAL TABLET take 1 tab po qday for depression. 2014 VILAZODONE HCL 55533487484 No Longer Active Robbie Busby MD Active TERBINAFINE HCL 250 MG ORAL TABLET 1 tab po qday for foot infection TERBINAFINE HCL 98756147986 No Longer Active Robbie Busby MD Active GABAPENTIN 300 MG ORAL CAPSULE 1 po q hs for nerve pain GABAPENTIN 89497301806 Active Robbie Busby MD Active CHERATUSSIN AC 100-10 MG/5ML ORAL SOLUTION 7.5 mL PO q 4-6 hrs PRN cough 2014 GUAIFENESIN-CODEINE 81001232057 No Longer Active Robbie Busby MD Active AZITHROMYCIN 250 MG ORAL TABLET 2 tablets PO today---then, 1 tablet PO daily x 4 more days (and 1 optional refill) AZITHROMYCIN 10660625481 No Longer Active Robbie Busby MD Active NORVASC 10 MG ORAL TABLET 1 tablet by mouth daily AMLODIPINE BESYLATE 57951682378 No Longer Active Alex ALVAREZ Active IMDUR 60 MG ORAL TABLET EXTENDED RELEASE 24 HOUR take 1 tab po qday for blood pressure ISOSORBIDE MONONITRATE 88364004428 Active Robbie Busby MD Active ISOSORBIDE DINITRATE 30 MG ORAL TABLET Take one by mouth daily ISOSORBIDE DINITRATE 99455389759 No Longer Active Robbie Busby MD Active VIIBRYD 40 MG ORAL TABLET 1 TA B PO DAILY VILAZODONE HCL 12045653598 Active Robbie Busby MD Active ZITHROMAX 250 MG ORAL TABLET 2 po today, then 1 po q days 2-5 AZITHROMYCIN 31192380121 No Longer Active Robbie Busby MD Active [id number] 0.3 MG/24HR TRANSDERMAL PATCH WEEKLY apply 2 patches q week for HTN CLONIDINE HCL 04238558809 Active Robbie Busby MD Active DOXAZOSIN MESYLATE 4 MG ORAL TABLET Take one by mouth daily DOXAZOSIN MESYLATE 74421928690 Active Robbie Busby MD Active TOPROL XL 200 MG ORAL TABLET EXTENDED RELEASE 24 HOUR Take one by mouth daily METOPROLOL SUCCINATE 84376398349 Active Robbie Busby MD Active VENLAFAXINE HCL ER 150 MG ORAL TABLET EXTENDED RELEASE 24 HOUR Take one by mouth daily VENLAFAXINE HCL 52706551815 Active Robbie Busby MD Active LIPITOR 40 MG ORAL TABLET Take one by mouth daily ATORVASTATIN CALCIUM 09023693123 Active Robbie Busby MD Active ISOSORBIDE DINITRATE 30 MG ORAL TABLET Take one by mouth daily ISOSORBIDE DINITRATE 30 MG ORAL TABLET 546736 ISOSORBIDE DINITRATE Inactive NORVASC 10 MG ORAL TABLET 1 tablet by mouth daily NORVASC 10 MG ORAL TABLET 752437 AMLODIPINE BESYLATE Inactive AZITHROMYCIN 250 MG ORAL TABLET 2 tablets PO today---then, 1 tablet PO daily x 4 more days (and 1 optional refill) AZITHROMYCIN 250 MG ORAL TABLET 283482 AZITHROMYCIN Inactive CHERATUSSIN AC 100-10 MG/5ML ORAL SOLUTION 7.5 mL PO q 4-6 hrs PRN cough 2014 CHERATUSSIN AC 100-10 MG/5ML ORAL SOLUTION 624320 GUAIFENESIN-CODEINE Inactive VIIBRYD 40 MG ORAL TABLET take 1 tab po qday for depression. 2014 VIIBRYD 40 MG ORAL TABLET VILAZODONE HCL Inactive HYDRALAZINE HCL 25 MG ORAL TABLET 1 tablet by mouth tid for hypertension 2013 HYDRALAZINE HCL 25 MG ORAL TABLET 733643 HYDRALAZINE HCL Inactive SPIRONOLACTONE 50 MG ORAL TABLET 1 tablet by mouth twice a day SPIRONOLACTONE 50 MG ORAL TABLET 480327 SPIRONOLACTONE Inactive FENOFIBRATE 145 MG ORAL TABLET Take one by mouth daily FENOFIBRATE 145 MG ORAL TABLET 204236 FENOFIBRATE Inactive PROTONIX 40 MG INTRAVENOUS SOLUTION RECONSTITUTED 1 po qday for acid reflux PROTONIX 40 MG INTRAVENOUS SOLUTION RECONSTITUTED 967259 PANTOPRAZOLE SODIUM Inactive CEFDINIR 300 MG ORAL CAPSULE Take 1 cap po bid x 10 days CEFDINIR 300 MG ORAL CAPSULE 135167 CEFDINIR Inactive PREDNISONE 20 MG ORAL TABLET 1 tablet twice daily for 2 days, then 1 tablet once daily for 2 days PREDNISONE 20 MG ORAL TABLET 080361 PREDNISONE Inactive NYSTATIN 784038 UNIT/ML MOUTH/THROAT SUSPENSION 5mL po QID x 10 days NYSTATIN 391576 UNIT/ML MOUTH/THROAT SUSPENSION 807690 NYSTATIN Inactive BETADINE 10 % EXTERNAL SOLUTION wash with solution to treat follicultis 07/29 BETADINE 10 % EXTERNAL SOLUTION 7556493 POVIDONE-IODINE Inactive TRILEPTAL 150 MG ORAL TABLET 1 TAB PO Q HS TRILEPTAL 150 MG ORAL TABLET 623496 OXCARBAZEPINE Inactive LAMISIL 125 MG ORAL PACKET 1 TAB PO DAILY LAMISIL 125 MG ORAL PACKET TERBINAFINE HCL Inactive HYDROCHLOROTHIAZIDE TABLET Take one by mouth daily HYDROCHLOROTHIAZIDE TABLET HYDROCHLOROTHIAZIDE TABS Inactive HYDROCODONE-ACETAMINOPHEN 5-325 MG ORAL TABLET 1 tab by mouth BID prn back pain HYDROCODONE-ACETAMINOPHEN 5-325 MG ORAL TABLET 543032 HYDROCODONE-ACETAMINOPHEN Inactive HYDRALAZINE HCL 50 MG ORAL TABLET TWO BY MOUTH THREE TIMES DAILY HYDRALAZINE HCL 50 MG ORAL TABLET 588123 HYDRALAZINE HCL Inactive LEVAQUIN 500 MG ORAL TABLET 1 tablet by mouth daily for 7 days LEVAQUIN 500 MG ORAL TABLET 170837 LEVOFLOXACIN Inactive SPIRONOLACTONE 25 MG ORAL TABLET 4 tablets by mouth daily SPIRONOLACTONE 25 MG ORAL TABLET 390532 SPIRONOLACTONE Inactive MECLIZINE HCL 25 MG ORAL TABLET one 4 times a day as needed for dizziness MECLIZINE HCL 25 MG ORAL TABLET 299981 MECLIZINE HCL Inactive CLONIDINE HCL 0.2 MG ORAL TABLET 1 TAB BY MOUTH EVERY 8 HOURS CLONIDINE HCL 0.2 MG ORAL TABLET 223387 CLONIDINE HCL Inactive CYCLOBENZAPRINE HCL 10 MG ORAL TABLET 1 tablet by mouth three times daily as needed for muscle spasm/pain for 10 days CYCLOBENZAPRINE HCL 10 MG ORAL TABLET 936788 CYCLOBENZAPRINE HCL Inactive VITAMIN D3 66016 UNIT ORAL CAPSULE 2 CAPS PO WEEKLY VITAMIN D3 46999 UNIT ORAL CAPSULE CHOLECALCIFEROL Inactive FIORICET 50-300-40 MG ORAL CAPSULE take 1 tab po qday prn migraines. FIORICET 50-300-40 MG ORAL CAPSULE 281036 BUTALBITAL-APAP- CAFFEINE Inactive FLONASE 50 MCG/ACT NASAL SUSPENSION 1 spray each nostril twice daily for allergies and runny nose FLONASE 50 MCG/ACT NASAL SUSPENSION 6023884 FLUTICASONE PROPIONATE Inactive LORATADINE 10 MG ORAL TABLET 1 tablet by mouth daily for congestion and allergies. LORATADINE 10 MG ORAL TABLET 310343 LORATADINE Inactive NITROSTAT 0.4 MG SUBLINGUAL TABLET SUBLINGUAL PRN NITROSTAT 0.4 MG SUBLINGUAL TABLET SUBLINGUAL 573907 NITROGLYCERIN Inactive GUAIFENESIN ER 600 MG ORAL TABLET EXTENDED RELEASE 12 HOUR 1 tab po q am 2016 GUAIFENESIN ER 600 MG ORAL TABLET EXTENDED RELEASE 12 HOUR GUAIFENESIN Inactive ZITHROMAX 250 MG ORAL TABLET 2 po today, then 1 po q days 2-5 ZITHROMAX 250 MG ORAL TABLET 720713 AZITHROMYCIN Inactive TERBINAFINE HCL 250 MG ORAL TABLET 1 tab po qday for foot infection TERBINAFINE HCL 250 MG ORAL TABLET 032149 TERBINAFINE HCL Inactive KEFLEX 500 MG ORAL CAPSULE 1 po TID x 10 days KEFLEX 500 MG ORAL CAPSULE 091514 CEPHALEXIN Inactive BACTRIM DS 800-160 MG ORAL TABLET 1 tab by mouth twice daily 2015 BACTRIM DS 800-160 MG ORAL TABLET 481478 TRIMETHOPRIM- SULFAMETHOXAZOLE Inactive PREDNISONE 20 MG ORAL TABLET take 3 tabs daily for 3 days, 2 tabs daily for 3 days, 1 tab daily for 3 days, 1/2 tab daily for 4 days PREDNISONE 20 MG ORAL TABLET 485752 PREDNISONE Inactive Advance Directives Directive Description Start [...] AUTO - Chemistry sodium, serum 142 mmol/L 650-575 3558/07/17 carbon dioxide, venous blood 28.2 mmol/L 21.0-32.0 [...] % 11.0-15.0 platelet count 185 THOUSAND/UL 10*3/mm3 857-003 9256/04/14 mean platelet volume 10.9 fL 7.5-12.5 Lab Report: LIPID PANEL, TSH/899, T4, FREE/866 - Chemistry cholesterol, serum 220 mg/dL 986-049 4846/04/14 HDL cholesterol, serum 30 mg/dL > OR=40 [...] 1.80 ng/mL 0.00-4.00 Lab Report: VITAMIN D, 25-HYDROXY/22029 - Chemistry vitamin D 25-hydroxy, serum 25 ng/mL 30-100 Office Visit: Confusion, dizziness after fall - Basic LDL target level 130 mg/dL Office Visit: Confusion, dizziness after fall - Chemistry HDL cholesterol, serum, target level 40 mg/dL triglyceride, target level 150 mg/dL cholesterol, target level 200 mg/dL Encounters Code Encounter Date Provider Facility CPT-35218 Level 3 Est. Patient 15:40:49 CDT Robbie Busby MD [facility] CPT-27691 Level 4 Est. Patient 15:18:19 CDT Robbie Busby MD [facility] CPT-50043 Level 3 Est. Patient 09:00:37 CDT Rober Rodríguez [facility] CPT-26699 Level 3 Est. Patient 16:07:10 CDT Robbie Busby MD [facility] CPT-39841 Level 4 Est. Patient 11:56:16 CDT Erin Garsia [facility] CPT-08019 Level 3 Est. Patient 17:48:02 CDT Robbie Busby MD [facility] CPT-07288 Level 4 Est. Patient 12:00:49 EXHIBIT BUILDER Rober Rodríguez [facility] CPT-19484 Level 3 Est. Patient 09:16:37 CDT Robbie Busby MD [facility] CPT-70596 Level 3 Est. Patient 19:38:43 CDT Robbie Busby MD [facility] CPT-84818 Level 3 Est. Patient 11:53:38 CDT Robbie Busby MD [facility] CPT-26156 Level 4 Est. Patient 12:52:22 CDT Rober Rodríguez [facility] CPT-43781 Level 4 Est. Patient 22:55:17 CDT Robbie Busby MD [facility] CPT-23816 Level 3 Est. Patient 12:38:24 CDT Desmond Diaz DO [facility] CPT-57523 Level 4 Est. Patient 11:25:03 EXHIBIT BUILDER Robbie Busby MD [facility] CPT-66560 Level 4 Est. Patient 14:50:10 CDT Robbie Busby MD [facility] CPT-12275 Level 4 Est. Patient 23:30:43 CDT Robbie Busby MD [facility] CPT-55702 Level 4 Est. Patient 10:30:43 CDT Robbie Busby MD [facility] CPT-47364 Level 3 Est. Patient 17:08:12 CDT Alex ALVAREZ [facility] CPT-26505 Level 4 Est. Patient 17:51:38 CDT Robbie Busby MD [facility] CPT-27657 Level 4 Est. Patient 14:00:21 CDT Robbie Busby MD [facility] CPT-06186 Level 4 Est. Patient 12:46:48 CDT Robbie Busby MD [facility] CPT-13213 Level 4 Est. Patient 13:34:33 CDT Robbie Busby MD [facility] CPT-90846 Level 4 Est. Patient 16:58:28 CDT Robbie Busby MD [facility] CPT-85378 Level 3 Est. Patient 19:36:53 CDT Alex Shaw [facility] CPT-39261 Level 3 Est. Patient 12:58:15 CDT Robbie Busby MD [facility] Procedures Code Procedure Name Date Entry Date Standard Description CPT-J1071 Depo Testosterone 200mg 09:38:36 EXHIBIT BUILDER CPT-45939 Abx/Therapy Injection 09:38:36 EXHIBIT BUILDER CPT-J1071 Depo Testosterone 200mg 10:22:56 EXHIBIT BUILDER CPT-91372 Abx/Therapy Injection 10:22:56 EXHIBIT BUILDER CPT-J1071 Depo Testosterone 200mg 15:40:23 CDT CPT-00117 Abx/Therapy Injection 15:40:23 CDT CPT-J1071 Depo Testosterone 200mg 14:20:43 CDT CPT-38219 Abx/Therapy Injection 14:20:43 CDT CPT-J1071 Depo Testosterone 200mg 14:17:22 CDT CPT-51591 Abx/Therapy Injection 14:17:22 CDT CPT-J1071 Depo Testosterone 200mg 09:03:53 CDT CPT-78017 Abx/Therapy Injection 09:03:53 CDT CPT-G0439 [facility] Annual Wellness Exam 16:47:44 CDT CPT-J1071 Depo Testosterone 200mg 09:06:28 CDT CPT-80318 Abx/Therapy Injection 09:06:28 CDT CPT-J1071 Depo Testosterone 200mg 08:30:01 CDT CPT-77496 Abx/Therapy Injection 08:30:01 CDT CPT-J1071 Depo Testosterone 200mg 08:24:00 CDT CPT-40932 Abx/Therapy Injection 08:24:00 CDT CPT-87826 Venipuncture Draw Fee 14:39:06 CDT CPT-82903 Ribs unilateral 2V - XRAY USE ONLY 12:10:11 CDT CPT-28131 First Vx - Ix admin for Medicare patients 16:32:53 CDT CPT-54491 Boostrix Intramuscular Suspension 5-2.5-18.5 16:32:53 CDT CPT-88187 TB Skin Test 11:42:28 CDT CPT-23008 Tdap 7yrs or > 11:42:28 CDT CPT-J0696 Rocephin 1000 mg (Ceftriaxone) 17:43:43 EXHIBIT BUILDER CPT-J1040 Depo Medrol 80 mg (Methyl Prednisolone Acetate) 17:43: 43 EXHIBIT BUILDER CPT-J1100 Decadron 8mg (Dexamethasone) 17:43:42 EXHIBIT BUILDER CPT-03272 Abx/Therapy Injection 17:43:42 EXHIBIT BUILDER CPT-41975 Abx/Therapy Injection 17:43:42 EXHIBIT BUILDER CPT-J1040 Depo Medrol 80 mg (Methyl Prednisolone Acetate) 09:43: 34 EXHIBIT BUILDER CPT-J1100 Decadron 8mg (Dexamethasone) 09:43:34 EXHIBIT BUILDER CPT-J0696 Rocephin 1gm Inj Solr 09:43:34 EXHIBIT BUILDER CPT-58471 Wound Culture - LAB USE ONLY 14:00:21 CDT CPT-I/D I/D Abscess 09:16:37 CDT CPT-25611 Venipuncture Draw Fee 15:20:23 CDT CPT-73614 Microalbumin - LAB USE ONLY 16:02:19 CDT CPT-68810 CBC - LAB USE ONLY 16:02:19 CDT CPT-50489 Venipuncture Draw Fee 16:02:19 CDT CPT-G0438 Initial Annual Wellness Exam 08:10:28 CDT CPT-66117 Venipuncture Draw Fee 13:07:17 CDT CPT-G0008 Administration of Influenza Virus Vaccine 16:09:59 CDT CPT-31937 Fluzone Quadrivalent Intramuscular Suspension 0.5 ML 16: 09:59 CDT CPT-08596 Spec Collection and Handling Fee 15:05:50 CDT
--- OUTSIDE RECORDS SUMMARY | 2018-04-18 12:01 | XMS REPORT | Clinical Summary ---
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 HYDROCODONE-ACETAMINOPHEN 5-325 MG TABS 1 tab by mouth BID prn back pain 2013 HYDROCODONE-ACETAMINOPHEN 23384754329 No Longer Active Jillina Frazell GARAGE DOOR TECHNICIAN Active HYDROCHLOROTHIAZIDE TABS Take one by mouth daily HYDROCHLOROTHIAZIDE TABS 44344846912 No Longer Active Jillina Frazell GARAGE DOOR TECHNICIAN Active LAMISIL 125 MG ORAL PACK 1 TAB PO DAILY TERBINAFINE HCL 92688520455 No Longer Active Jillina Frazell GARAGE DOOR 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 Active TRILEPTAL 150 MG ORAL TABS 1 TAB PO Q HS OXCARBAZEPINE 56577401408 No Longer Active Jillina Frazell GARAGE DOOR 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 Active BETADINE 10 % EXT SOLN wash with solution to treat follicultis POVIDONE-IODINE 56162863899 No Longer Active Jillina Frazell GARAGE DOOR TECHNICIAN Active NYSTATIN 945970 UNIT/ML M/T SUSP 5mL po QID x 10 days NYSTATIN 30254518066 No Longer Active Erin Garsia APRN Active PREDNISONE 20 MG TAB 1 tablet twice daily for 2 days, then 1 tablet once daily for 2 days PREDNISONE 70289815246 No Longer Active Robbie Busby MD Active CEFDINIR 300 MG ORAL CAPS Take 1 cap po bid x 10 days CEFDINIR 84019545742 No Longer Active Robbie Busby MD Active AMLODIPINE BESYLATE 10 MG TABS 1 tablet by mouth daily AMLODIPINE BESYLATE 21877819383 Active Robbie Busby MD Active CARVEDILOL 25 MG TABS 1 & 1/2 TAB po BID CARVEDILOL 90165735029 Active Robbie Busby MD Active VITAMIN D3 91127 UNIT CAPS 2 CAPS PO WEEKLY CHOLECALCIFEROL 38657020601 Active Erin Garsia APRN Active NEXIUM 40 MG CPDR 1 cap by mouth daily ESOMEPRAZOLE MAGNESIUM 94624062823 Active Gali Negro Active PROTONIX 40 MG SOLR 1 po qday for acid reflux PANTOPRAZOLE SODIUM 93730699753 No Longer Active Galileonila Torresjuan carlos Active KEFLEX 500 MG CAP 1 po TID x 10 days CEPHALEXIN 52460616459 No Longer Active Robbie Busby MD Active FIORICET 50-300-40 MG ORAL CAPS take 1 tab po qday prn migraines. [id number] 79295658425 Active Robbie Busby MD Active TOPIRAMATE 50 MG ORAL TABS take 1 tab po BID for migraines. TOPIRAMATE 76629413011 Active Robbie Busby MD Active MECLIZINE HCL 25 MG TAB one 4 times a day as needed for dizziness MECLIZINE HCL 22484004544 Active Robbie Busby MD Active TEMAZEPAM 15 MG ORAL CAPS 1 TAB PO Q HS TEMAZEPAM 09097102219 Active Robbie Busby MD Active ALPRAZOLAM 2 MG ORAL TABS 1 TAB PO BID ALPRAZOLAM 53478715260 Active Robbie Busby MD Active FENOFIBRATE 145 MG TABS Take one by mouth daily FENOFIBRATE 48378090917 No Longer Active Robbie Busby MD Active SPIRONOLACTONE 50 MG TABS 1 tablet by mouth twice a day SPIRONOLACTONE 76229729307 No Longer Active Robbie Busby MD Active HYDRALAZINE HCL 25 MG TABS 1 tablet by mouth tid for hypertension HYDRALAZINE HCL 47976279296 No Longer Active Robbie Busby MD Active VIIBRYD 40 MG TABS take 1 tab po qday for depression. VILAZODONE HCL 86629404042 No Longer Active Robbie Busby MD Active TERBINAFINE HCL 250 MG TABS 1 tab po qday for foot infection 2014 TERBINAFINE HCL 66801483436 No Longer Active Robbie Busby MD Active GABAPENTIN 300 MG CAPS 1 po q hs for nerve pain GABAPENTIN 22514123318 Active Robbie Busby MD Active FLONASE 50 MCG/ACT SUSP 1 spray each nostril twice daily for allergies and runny nose FLUTICASONE PROPIONATE 39334820320 Active Robbie Busby MD Active CHERATUSSIN AC 100-10 MG/5ML ORAL SOLN 7.5 mL PO q 4-6 hrs PRN cough GUAIFENESIN-CODEINE 34815926048 No Longer Active Robbie Busby MD Active AZITHROMYCIN 250 MG ORAL TABS 2 tablets PO today---then, 1 tablet PO daily x 4 more days (and 1 optional refill) AZITHROMYCIN 94443694332 No Longer Active Robbie Busby MD Active CLONIDINE HCL 0.2 MG ORAL TABS 1 TAB BY MOUTH EVERY 8 HOURS CLONIDINE HCL 97354181563 Active Robbie Busby MD Active NORVASC 10 MG TAB 1 tablet by mouth daily AMLODIPINE BESYLATE 45248442630 No Longer Active Alex ALVAREZ Active IMDUR 60 MG TAB CR take 1 tab po qday for blood pressure ISOSORBIDE MONONITRATE Active Robbie Busby MD Active ISOSORBIDE DINITRATE 30 MG TABS Take one by mouth daily ISOSORBIDE DINITRATE 53609754725 No Longer Active Robbie Busby MD Active VIIBRYD 40 MG TABS 1 TA B PO DAILY VILAZODONE HCL 96078221501 Active Robbie Busby MD Active LORATADINE 10 MG TABS 1 tablet by mouth daily for congestion and allergies. LORATADINE 35725809242 Active Robbie Busby MD Active ZITHROMAX 250 MG TAB 2 po today, then 1 po q days 2-5 AZITHROMYCIN 37733172511 No Longer Active Robbie Busby MD Active [id number] 0.3 MG/24HR PTWK apply 2 patches q week for HTN CLONIDINE HCL 70013968780 Active Robbie Busby MD Active NITROSTAT 0.4 MG SUBL PRN NITROGLYCERIN 93918767729 Active Robbie Busby MD Active DOXAZOSIN MESYLATE 4 MG TABS Take one by mouth daily DOXAZOSIN MESYLATE 44095863684 Active Robbie Busby MD Active TOPROL XL 200 MG [id number] Take one by mouth daily METOPROLOL SUCCINATE 71760518334 Active Robbie Busby MD Active VENLAFAXINE HCL ER 150 MG [id number] Take one by mouth daily VENLAFAXINE HCL 21586372092 Active Robbie Busby MD Active LIPITOR 40 MG TABS Take one by mouth daily ATORVASTATIN CALCIUM 22796857227 Active Robbie Busby MD Active ISOSORBIDE DINITRATE 30 MG TABS Take one by mouth daily ISOSORBIDE DINITRATE 30 MG TABS 205046 ISOSORBIDE DINITRATE Inactive NORVASC 10 MG TAB 1 tablet by mouth daily NORVASC 10 MG TAB 536234 AMLODIPINE BESYLATE Inactive AZITHROMYCIN 250 MG ORAL TABS 2 tablets PO today---then, 1 tablet PO daily x 4 more days (and 1 optional refill) AZITHROMYCIN 250 MG ORAL TABS 7644334 AZITHROMYCIN Inactive CHERATUSSIN AC 100-10 MG/5ML ORAL SOLN 7.5 mL PO q 4-6 hrs PRN cough CHERATUSSIN AC 100-10 MG/5ML ORAL SOLN 141505 GUAIFENESIN- CODEINE Inactive VIIBRYD 40 MG TABS take 1 tab po qday for depression. VIIBRYD 40 MG TABS VILAZODONE HCL Inactive HYDRALAZINE HCL 25 MG TABS 1 tablet by mouth tid for hypertension HYDRALAZINE HCL 25 MG TABS 757324 HYDRALAZINE HCL Inactive SPIRONOLACTONE 50 MG TABS 1 tablet by mouth twice a day SPIRONOLACTONE 50 MG TABS 368361 SPIRONOLACTONE Inactive FENOFIBRATE 145 MG TABS Take one by mouth daily FENOFIBRATE 145 MG TABS 585715 FENOFIBRATE Inactive PROTONIX 40 MG SOLR 1 po qday for acid reflux PROTONIX 40 MG SOLR 079888 PANTOPRAZOLE SODIUM Inactive CEFDINIR 300 MG ORAL CAPS Take 1 cap po bid x 10 days CEFDINIR 300 MG ORAL CAPS 553513 CEFDINIR Inactive PREDNISONE 20 MG TAB 1 tablet twice daily for 2 days, then 1 tablet once daily for 2 days PREDNISONE 20 MG TAB 976567 PREDNISONE Inactive NYSTATIN 272482 UNIT/ML M/T SUSP 5mL po QID x 10 days NYSTATIN 251511 UNIT/ML M/T SUSP 304855 NYSTATIN Inactive BETADINE 10 % EXT SOLN wash with solution to treat follicultis BETADINE 10 % EXT SOLN 6038150 POVIDONE-IODINE Inactive TRILEPTAL 150 MG ORAL TABS 1 TAB PO Q HS TRILEPTAL 150 MG ORAL TABS 723146 OXCARBAZEPINE Inactive LAMISIL 125 MG ORAL PACK 1 TAB PO DAILY LAMISIL 125 MG ORAL PACK TERBINAFINE HCL Inactive HYDROCHLOROTHIAZIDE TABS Take one by mouth daily HYDROCHLOROTHIAZIDE TABS HYDROCHLOROTHIAZIDE TABS Inactive HYDROCODONE-ACETAMINOPHEN 5-325 MG TABS 1 tab by mouth BID prn back pain 2013 HYDROCODONE-ACETAMINOPHEN 5-325 MG TABS 472516 HYDROCODONE -ACETAMINOPHEN Inactive HYDRALAZINE HCL 50 MG ORAL TABS TWO BY MOUTH THREE TIMES DAILY HYDRALAZINE HCL 50 MG ORAL TABS 760407 HYDRALAZINE HCL Inactive ZITHROMAX 250 MG TAB 2 po today, then 1 po q days 2-5 ZITHROMAX 250 MG TAB 8210509 AZITHROMYCIN Inactive TERBINAFINE HCL 250 MG TABS 1 tab po qday for foot infection 2014 TERBINAFINE HCL 250 MG TABS 165539 TERBINAFINE HCL Inactive KEFLEX 500 MG CAP 1 po TID x 10 days KEFLEX 500 MG CAP 722915 CEPHALEXIN Inactive BACTRIM DS 800-160 MG TAB 1 tab by mouth twice daily BACTRIM DS 800-160 MG TAB 649779 TRIMETHOPRIM-SULFAMETHOXAZOLE Inactive Advance Directives Directive Description Start [...] Acid - Chemistry sodium, serum 139 mmol/L 392-946 3874/04/22 carbon dioxide, venous blood 29.4 mmol/L 21.0-32.0 [...] to Follow Negative Lab Report: VITAMIN D, 25-HYDROXY/10940 - Chemistry vitamin D 25-hydroxy, serum 23 ng/mL 30-100 Encounters Code Encounter Date Provider Facility CPT-73364 Level 3 Est. Patient 09:16:37 CDT Robbie Busby MD [facility] CPT-43826 Level 3 Est. Patient 19:38:43 CDT Robbie Busby MD [facility] CPT-50954 Level 3 Est. Patient 11:53:38 CDT Robbie Busby MD [facility] CPT-07736 Level 4 Est. Patient 12:52:22 CDT Rober Rodríguez APRN [facility] CPT-17174 Level 4 Est. Patient 22:55:17 CDT Robbie Busby MD [facility] CPT-48949 Level 3 Est. Patient 12:38:24 CDT Desmond Diaz DO [facility] CPT-41409 Level 4 Est. Patient 11:25:03 BR[employer]OMMA[employer]ER Robbie Busby MD [facility] CPT-90986 Level 4 Est. Patient 14:50:10 CDT Robbie Busby MD [facility] CPT-77615 Level 4 Est. Patient 23:30:43 CDT Robbie Bsuby MD [facility] CPT-90227 Level 4 Est. Patient 10:30:43 CDT Robbie Busby MD [facility] CPT-90825 Level 3 Est. Patient 17:08:12 CDT Alex ALVAREZ [facility] CPT-74539 Level 4 Est. Patient 17:51:38 CDT Robbie Busby MD [facility] CPT-07661 Level 4 Est. Patient 14:00:21 CDT Robbie Busby MD [facility] CPT-80035 Level 4 Est. Patient 12:46:48 CDT Robbie Busby MD [facility] CPT-78849 Level 4 Est. Patient 13:34:33 CDT Robbie Busby MD [facility] CPT-67091 Level 4 Est. Patient 16:58:28 CDT Robbie Busby MD [facility] CPT-22241 Level 3 Est. Patient 19:36:53 CDT Alex Shaw [facility] CPT-00303 Level 3 Est. Patient 12:58:15 CDT Robbie Busby MD [facility] Procedures Code Procedure Name Date Entry Date Standard Description CPT-82569 Wound Culture - LAB USE ONLY 14:00:21 CDT CPT-I/D I/D Abscess 09:16:37 CDT CPT-92246 Venipuncture Draw Fee 15:20:23 CDT CPT-48464 Microalbumin - LAB USE ONLY 16:02:19 CDT CPT-70475 CBC - LAB USE ONLY 16:02:19 CDT CPT-37409 Venipuncture Draw Fee 16:02:19 CDT CPT-G0438 Initial Annual Wellness Exam 08:10:28 CDT CPT-24200 Venipuncture Draw Fee 13:07:17 CDT CPT-G0008 Administration of Influenza Virus Vaccine 16:09:59 CDT CPT-03155 Fluzone Quadrivalent Intramuscular Suspension 0.5 ML 16: 09:59 CDT CPT-59133 Spec Collection and Handling Fee 15:05:50 CDT
--- OUTSIDE RECORDS SUMMARY | 2018-04-18 12:02 | XMS REPORT | Clinical Summary ---
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 Desmond Diaz DO Other malignant secondary hypertension Tachycardia 785.0 Active Rober Rodríguez [employer] Tachycardia, unspecified Insect bite, infected 919.5 Resolved Desmond Diaz DO Insect bite, nonvenomous, of other, multiple, and unspecified sites, infected Abscess, skin 682.9 Resolved Desmond Diaz DO Cellulitis and abscess of unspecified sites URI 465.9 Resolved Desmond Diaz DO Acute upper respiratory infections of unspecified site Hypertension 401.9 Active Rober Rodríguez [employer] Unspecified essential hypertension Sinusitis - acute 461.9 [...] Hypogonadism, low testosterone 257.2 Active Erin Garsia [employer] CARVER Other testicular hypofunction Low back pain, chronic 724.2 Active Robbie Busby MD Lumbago Bronchitis-Acute 466.0 Inactive Desmond Diaz DO Acute bronchitis Polydipsia 783.5 Active Desmond Diaz DO Polydipsia Type 2 diabetes mellitus with hyperglycemia Active Rbobie Busby MD Sinusitis ICD-461.9 Inactive Emily Atwood LPN 2017 Low back pain, acute ICD-724.2 Inactive Emily Atwood LPN Low back pain, chronic ICD-724.2 Inactive Emily Atwood [employer] Bronchitis, acute ICD-466.0 Inactive Emily Atwood [employer] Onychomycosis, toenails ICD-110.1 Inactive Emily Atwood [employer] Dizziness ICD-780.4 Inactive Emily Atwood [employer] 2017 Folliculitis ICD-704.8 Inactive Emily Atwood [employer] Pharyngitis-Acute ICD-462 Inactive Emily Atwood [employer] Fatigue ICD-780.79 Inactive Emily Atwood [employer] 09/20 Hypertension, secondary, malignant ICD-405.09 Inactive Emily Atwood [employer] Insect bite, infected ICD-919.5 Inactive Emily Atwood [employer] Abscess, skin ICD-682.9 Inactive Emily Atwood [employer] URI ICD-465.9 Inactive Emily Atwood [employer] Sinusitis - acute ICD-461.9 Inactive Emily Atwood [employer] Acute confusion ICD-293.0 Inactive Emily Atwood [employer] Headache ICD-784.0 Inactive Emily Atwood [employer] 09/20 Back pain ICD-724.5 Inactive Emily Atwood [employer] 2017 Rib pain, right sided ICD-786.50 Inactive Emily Atwood [employer] Myalgias ICD-729.1 Inactive Emily Atwood LPN 09/20 URI ICD-465.9 Inactive Emily Atwood LPN Bronchitis-Acute ICD-466.0 Inactive Desmond Diaz DO Medication List Medication Instructions Start Date Stop Date Generic Name NDC Status Provider Patient Instruction CYCLOBENZAPRINE HCL 10 MG ORAL TABLET 1 tablet by mouth three times daily as needed for muscle spasm/pain CYCLOBENZAPRINE HCL 21891726211 Active Robbie Busby MD Active METFORMIN HCL 500 MG ORAL TABLET 1 tablet by mouth daily for diabetes type 2 METFORMIN HCL 38585112161 Active Robbie Busby MD Active SINGULAIR 10 MG ORAL TABLET 1 po qday for allergies. MONTELUKAST SODIUM 48853261928 Active Robbie Busby MD Active PREDNISONE 20 MG ORAL TABLET two tabs by mouth today, then one tab by mouth days two and three PREDNISONE 48877396151 No Longer Active Robbie Busby MD Active TOPIRAMATE 50 MG ORAL TABLET 1 po BID for migraines TOPIRAMATE 28593590285 Active JONATHAN Moncada Active AZITHROMYCIN 250 MG ORAL TABLET 2 po qd x 1 day, then 1 po qd x 4 days 09/20 AZITHROMYCIN 37849934149 No Longer Active Desmond Diaz DO Active TOPIRAMATE 50 MG ORAL TABLET take 1 tab po BID for migraines. TOPIRAMATE 33225373231 No Longer Active Desmond Diaz DO Active CYCLOBENZAPRINE HCL 10 MG ORAL TABLET 1 po TID PRN muscle spasm/pain for 10 days CYCLOBENZAPRINE HCL 77477559675 No Longer Active Desmond Diaz DO Active GUAIFENESIN ER 600 MG ORAL TABLET EXTENDED RELEASE 12 HOUR 1 tab po q am 2016 GUAIFENESIN 26865457352 No Longer Active Robbie Busby MD Active DIVALPROEX SODIUM ER 500 MG ORAL TABLET EXTENDED RELEASE 24 HOUR Once daily DIVALPROEX SODIUM 06246417711 Active Robbie Busby MD Active DEPO-TESTOSTERONE 200 MG/ML INTRAMUSCULAR SOLUTION 1 IM Injections every 2 weeks for low testosterone TESTOSTERONE CYPIONATE 38579967596 Active Zulema Blank LPN Active FLUTICASONE PROPIONATE 50 MCG/ACT NASAL SUSPENSION 2 sprays per nostril bid for 1 week, then 1 spray bid FLUTICASONE PROPIONATE 38363823221 Active Rober Rodríguez APRN Active HYDRALAZINE HCL 25 MG ORAL TABLET Take 1 tab BID. HYDRALAZINE HCL 53830755003 Active Rober Rodríguez APRN Active VITAMIN D3 99492 UNIT ORAL TABLET 2 po weekly CHOLECALCIFEROL 36949218344 Active Robbie Busby MD Active OXYCODONE HCL ER 10 MG ORAL TABLET ER 12 HOUR ABUSE-DETERRENT 1 tab po 3 times qd. OXYCODONE HCL 38029194871 Active Robbie Busby MD Active NITROSTAT 0.4 MG SUBLINGUAL TABLET SUBLINGUAL PRN NITROGLYCERIN 51983179092 No Longer Active Robbie Busby MD Active LORATADINE 10 MG ORAL TABLET 1 tablet by mouth daily for congestion and allergies. LORATADINE 23061966223 No Longer Active Robbie Busby MD Active FLONASE 50 MCG/ACT NASAL SUSPENSION 1 spray each nostril twice daily for allergies and runny nose FLUTICASONE PROPIONATE 65835171888 No Longer Active Robbie Busby MD Active FIORICET 50-300-40 MG ORAL CAPSULE take 1 tab po qday prn migraines. [id number] 69978651410 No Longer Active Robbie Busby MD Active VITAMIN D3 67823 UNIT ORAL CAPSULE 2 CAPS PO WEEKLY CHOLECALCIFEROL 33914461194 No Longer Active Robbie Busby MD Active CYCLOBENZAPRINE HCL 10 MG ORAL TABLET 1 tablet by mouth three times daily as needed for muscle spasm/pain for 10 days CYCLOBENZAPRINE HCL 53858352195 No Longer Active Robbie Busby MD Active PREDNISONE 20 MG ORAL TABLET take 3 tabs daily for 3 days, 2 tabs daily for 3 days, 1 tab daily for 3 days, 1/2 tab daily for 4 days PREDNISONE 94348881889 No Longer Active Erin Garsia APRN Active CLONIDINE HCL 0.2 MG ORAL TABLET 1 TAB BY MOUTH EVERY 8 HOURS CLONIDINE HCL 25441512109 No Longer Active Erin Garsia APRN Active MECLIZINE HCL 25 MG ORAL TABLET one 4 times a day as needed for dizziness MECLIZINE HCL 96972581719 No Longer Active Erin Garsia APRN Active SPIRONOLACTONE 25 MG ORAL TABLET 4 tablets by mouth daily SPIRONOLACTONE 64342996202 No Longer Active Erin Garsia APRN Active LEVAQUIN 500 MG ORAL TABLET 1 tablet by mouth daily for 7 days LEVOFLOXACIN 76327433615 No Longer Active Erin Garsia APRN Active BACTRIM DS 800-160 MG ORAL TABLET 1 tab by mouth twice daily 2015 TRIMETHOPRIM-SULFAMETHOXAZOLE 53455576812 No Longer Active Robbie Busby MD Active HYDRALAZINE HCL 50 MG ORAL TABLET TWO BY MOUTH THREE TIMES DAILY HYDRALAZINE HCL 40958639328 No Longer Active Rober Rodríguez APRN Active HYDROCODONE-ACETAMINOPHEN 5-325 MG ORAL TABLET 1 tab by mouth BID prn back pain HYDROCODONE-ACETAMINOPHEN 41304675006 No Longer Active Jillina Anne GONZALEZN Active HYDROCHLOROTHIAZIDE TABLET Take one by mouth daily HYDROCHLOROTHIAZIDE TABS 65085993309 No Longer Active Andrellld Poolel [employer] CARVER Active LAMISIL 125 MG ORAL PACKET 1 TAB PO DAILY TERBINAFINE HCL 72527883078 No Longer Active Rober Rodríguez APRN Active TRILEPTAL 150 MG ORAL TABLET 1 TAB PO Q HS OXCARBAZEPINE 27463186145 No Longer Active Jillld Poolel [employer]VER Active BETADINE 10 % EXTERNAL SOLUTION wash with solution to treat follicultis 07/29 POVIDONE-IODINE 53806685210 No Longer Active Rober Rodríguez APRN Active NYSTATIN 950319 UNIT/ML MOUTH/THROAT SUSPENSION 5mL po QID x 10 days NYSTATIN 47560196744 No Longer Active Erin Garsia APRN Active PREDNISONE 20 MG ORAL TABLET 1 tablet twice daily for 2 days, then 1 tablet once daily for 2 days PREDNISONE 54237862221 No Longer Active Robbie Busby MD Active CEFDINIR 300 MG ORAL CAPSULE Take 1 cap po bid x 10 days CEFDINIR 69106200241 No Longer Active Robbie Busby MD Active AMLODIPINE BESYLATE 10 MG ORAL TABLET 1 tablet by mouth daily AMLODIPINE BESYLATE 94588088889 Active Robbie Busby MD Active CARVEDILOL 25 MG ORAL TABLET 1 & 1/2 TAB po BID CARVEDILOL 58252394850 Active Robbie Busby MD Active NEXIUM 40 MG ORAL CAPSULE DELAYED RELEASE 1 cap by mouth daily ESOMEPRAZOLE MAGNESIUM 44899458885 Active Robbie Busby MD Active PROTONIX 40 MG INTRAVENOUS SOLUTION RECONSTITUTED 1 po qday for acid reflux PANTOPRAZOLE SODIUM 21022290691 No Longer Active Gali Raida Active KEFLEX 500 MG ORAL CAPSULE 1 po TID x 10 days CEPHALEXIN 03281728941 No Longer Active Robbie Busby MD Active TEMAZEPAM 15 MG ORAL CAPSULE 1 TAB PO Q HS TEMAZEPAM 53958303475 Active Robbie Busby MD Active ALPRAZOLAM 2 MG ORAL TABLET 1 TAB PO BID ALPRAZOLAM 88650412327 Active Robbie Busby MD Active FENOFIBRATE 145 MG ORAL TABLET Take one by mouth daily FENOFIBRATE 60201284825 No Longer Active Robbie Busby MD Active SPIRONOLACTONE 50 MG ORAL TABLET 1 tablet by mouth twice a day SPIRONOLACTONE 31398461418 No Longer Active Robbie Busby MD Active HYDRALAZINE HCL 25 MG ORAL TABLET 1 tablet by mouth tid for hypertension 2013 HYDRALAZINE HCL 79209306144 No Longer Active Robbie Busby MD Active VIIBRYD 40 MG ORAL TABLET take 1 tab po qday for depression. 2014 VILAZODONE HCL 05211295070 No Longer Active Robbie Busby MD Active TERBINAFINE HCL 250 MG ORAL TABLET 1 tab po qday for foot infection TERBINAFINE HCL 16648338711 No Longer Active Robbie Busby MD Active GABAPENTIN 300 MG ORAL CAPSULE 1 po q hs for nerve pain GABAPENTIN 54505803037 Active Robbie Busby MD Active CHERATUSSIN AC 100-10 MG/5ML ORAL SOLUTION 7.5 mL PO q 4-6 hrs PRN cough 2014 GUAIFENESIN-CODEINE 25059351468 No Longer Active Robbie Busby MD Active AZITHROMYCIN 250 MG ORAL TABLET 2 tablets PO today---then, 1 tablet PO daily x 4 more days (and 1 optional refill) AZITHROMYCIN 41158220822 No Longer Active Robbie Busby MD Active NORVASC 10 MG ORAL TABLET 1 tablet by mouth daily AMLODIPINE BESYLATE 47740888723 No Longer Active Alex ALVAREZ Active IMDUR 60 MG ORAL TABLET EXTENDED RELEASE 24 HOUR take 1 tab po qday for blood pressure ISOSORBIDE MONONITRATE 48268837943 Active Robbie Busby MD Active ISOSORBIDE DINITRATE 30 MG ORAL TABLET Take one by mouth daily ISOSORBIDE DINITRATE 19754892556 No Longer Active Robbie Busby MD Active VIIBRYD 40 MG ORAL TABLET 1 TA B PO DAILY VILAZODONE HCL 06768554731 Active Robbie Busby MD Active ZITHROMAX 250 MG ORAL TABLET 2 po today, then 1 po q days 2-5 AZITHROMYCIN 46822378220 No Longer Active Robbie Busby MD Active [id number] 0.3 MG/24HR TRANSDERMAL PATCH WEEKLY apply 2 patches q week for HTN CLONIDINE HCL 87978907788 Active Robbie Busby MD Active DOXAZOSIN MESYLATE 4 MG ORAL TABLET Take one by mouth daily DOXAZOSIN MESYLATE 85383323567 Active Robbie Busby MD Active TOPROL XL 200 MG ORAL TABLET EXTENDED RELEASE 24 HOUR Take one by mouth daily METOPROLOL SUCCINATE 92221329269 Active Robbie Busby MD Active VENLAFAXINE HCL ER 150 MG ORAL TABLET EXTENDED RELEASE 24 HOUR Take one by mouth daily VENLAFAXINE HCL 54303029201 Active Robbie Busby MD Active LIPITOR 40 MG ORAL TABLET Take one by mouth daily ATORVASTATIN CALCIUM 90672918796 Active Robbie Busby MD Active ISOSORBIDE DINITRATE 30 MG ORAL TABLET Take one by mouth daily ISOSORBIDE DINITRATE 30 MG ORAL TABLET 227625 ISOSORBIDE DINITRATE Inactive NORVASC 10 MG ORAL TABLET 1 tablet by mouth daily NORVASC 10 MG ORAL TABLET 226248 AMLODIPINE BESYLATE Inactive AZITHROMYCIN 250 MG ORAL TABLET 2 tablets PO today---then, 1 tablet PO daily x 4 more days (and 1 optional refill) AZITHROMYCIN 250 MG ORAL TABLET 417637 AZITHROMYCIN Inactive CHERATUSSIN AC 100-10 MG/5ML ORAL SOLUTION 7.5 mL PO q 4-6 hrs PRN cough 2014 CHERATUSSIN AC 100-10 MG/5ML ORAL SOLUTION 650062 GUAIFENESIN-CODEINE Inactive VIIBRYD 40 MG ORAL TABLET take 1 tab po qday for depression. 2014 VIIBRYD 40 MG ORAL TABLET VILAZODONE HCL Inactive HYDRALAZINE HCL 25 MG ORAL TABLET 1 tablet by mouth tid for hypertension 2013 HYDRALAZINE HCL 25 MG ORAL TABLET 360266 HYDRALAZINE HCL Inactive SPIRONOLACTONE 50 MG ORAL TABLET 1 tablet by mouth twice a day SPIRONOLACTONE 50 MG ORAL TABLET 606587 SPIRONOLACTONE Inactive FENOFIBRATE 145 MG ORAL TABLET Take one by mouth daily FENOFIBRATE 145 MG ORAL TABLET 419933 FENOFIBRATE Inactive PROTONIX 40 MG INTRAVENOUS SOLUTION RECONSTITUTED 1 po qday for acid reflux PROTONIX 40 MG INTRAVENOUS SOLUTION RECONSTITUTED 335051 PANTOPRAZOLE SODIUM Inactive CEFDINIR 300 MG ORAL CAPSULE Take 1 cap po bid x 10 days CEFDINIR 300 MG ORAL CAPSULE 733201 CEFDINIR Inactive PREDNISONE 20 MG ORAL TABLET 1 tablet twice daily for 2 days, then 1 tablet once daily for 2 days PREDNISONE 20 MG ORAL TABLET 372267 PREDNISONE Inactive NYSTATIN 709369 UNIT/ML MOUTH/THROAT SUSPENSION 5mL po QID x 10 days NYSTATIN 135819 UNIT/ML MOUTH/THROAT SUSPENSION 243945 NYSTATIN Inactive BETADINE 10 % EXTERNAL SOLUTION wash with solution to treat follicultis 07/29 BETADINE 10 % EXTERNAL SOLUTION 3384015 POVIDONE-IODINE Inactive TRILEPTAL 150 MG ORAL TABLET 1 TAB PO Q HS TRILEPTAL 150 MG ORAL TABLET 090294 OXCARBAZEPINE Inactive LAMISIL 125 MG ORAL PACKET 1 TAB PO DAILY LAMISIL 125 MG ORAL PACKET TERBINAFINE HCL Inactive HYDROCHLOROTHIAZIDE TABLET Take one by mouth daily HYDROCHLOROTHIAZIDE TABLET HYDROCHLOROTHIAZIDE TABS Inactive HYDROCODONE-ACETAMINOPHEN 5-325 MG ORAL TABLET 1 tab by mouth BID prn back pain HYDROCODONE-ACETAMINOPHEN 5-325 MG ORAL TABLET 760037 HYDROCODONE-ACETAMINOPHEN Inactive HYDRALAZINE HCL 50 MG ORAL TABLET TWO BY MOUTH THREE TIMES DAILY HYDRALAZINE HCL 50 MG ORAL TABLET 034059 HYDRALAZINE HCL Inactive LEVAQUIN 500 MG ORAL TABLET 1 tablet by mouth daily for 7 days LEVAQUIN 500 MG ORAL TABLET 945827 LEVOFLOXACIN Inactive SPIRONOLACTONE 25 MG ORAL TABLET 4 tablets by mouth daily SPIRONOLACTONE 25 MG ORAL TABLET 568262 SPIRONOLACTONE Inactive MECLIZINE HCL 25 MG ORAL TABLET one 4 times a day as needed for dizziness MECLIZINE HCL 25 MG ORAL TABLET 222905 MECLIZINE HCL Inactive CLONIDINE HCL 0.2 MG ORAL TABLET 1 TAB BY MOUTH EVERY 8 HOURS CLONIDINE HCL 0.2 MG ORAL TABLET 264900 CLONIDINE HCL Inactive CYCLOBENZAPRINE HCL 10 MG ORAL TABLET 1 tablet by mouth three times daily as needed for muscle spasm/pain for 10 days CYCLOBENZAPRINE HCL 10 MG ORAL TABLET 773027 CYCLOBENZAPRINE HCL Inactive VITAMIN D3 70278 UNIT ORAL CAPSULE 2 CAPS PO WEEKLY VITAMIN D3 32810 UNIT ORAL CAPSULE CHOLECALCIFEROL Inactive FIORICET 50-300-40 MG ORAL CAPSULE take 1 tab po qday prn migraines. FIORICET 50-300-40 MG ORAL CAPSULE 237471 BUTALBITAL-APAP- CAFFEINE Inactive FLONASE 50 MCG/ACT NASAL SUSPENSION 1 spray each nostril twice daily for allergies and runny nose FLONASE 50 MCG/ACT NASAL SUSPENSION 9326059 FLUTICASONE PROPIONATE Inactive LORATADINE 10 MG ORAL TABLET 1 tablet by mouth daily for congestion and allergies. LORATADINE 10 MG ORAL TABLET 056222 LORATADINE Inactive NITROSTAT 0.4 MG SUBLINGUAL TABLET SUBLINGUAL PRN NITROSTAT 0.4 MG SUBLINGUAL TABLET SUBLINGUAL 219450 NITROGLYCERIN Inactive GUAIFENESIN ER 600 MG ORAL TABLET EXTENDED RELEASE 12 HOUR 1 tab po q am 2016 GUAIFENESIN ER 600 MG ORAL TABLET EXTENDED RELEASE 12 HOUR GUAIFENESIN Inactive CYCLOBENZAPRINE HCL 10 MG ORAL TABLET 1 po TID PRN muscle spasm/pain for 10 days CYCLOBENZAPRINE HCL 10 MG ORAL TABLET 389093 CYCLOBENZAPRINE HCL Inactive TOPIRAMATE 50 MG ORAL TABLET take 1 tab po BID for migraines. TOPIRAMATE 50 MG ORAL TABLET 011603 TOPIRAMATE Inactive PREDNISONE 20 MG ORAL TABLET two tabs by mouth today, then one tab by mouth days two and three PREDNISONE 20 MG ORAL TABLET 597723 PREDNISONE Inactive ZITHROMAX 250 MG ORAL TABLET 2 po today, then 1 po q days 2-5 ZITHROMAX 250 MG ORAL TABLET 980628 AZITHROMYCIN Inactive TERBINAFINE HCL 250 MG ORAL TABLET 1 tab po qday for foot infection TERBINAFINE HCL 250 MG ORAL TABLET 175371 TERBINAFINE HCL Inactive KEFLEX 500 MG ORAL CAPSULE 1 po TID x 10 days KEFLEX 500 MG ORAL CAPSULE 410752 CEPHALEXIN Inactive BACTRIM DS 800-160 MG ORAL TABLET 1 tab by mouth twice daily 2015 BACTRIM DS 800-160 MG ORAL TABLET 258939 TRIMETHOPRIM- SULFAMETHOXAZOLE Inactive PREDNISONE 20 MG ORAL TABLET take 3 tabs daily for 3 days, 2 tabs daily for 3 days, 1 tab daily for 3 days, 1/2 tab daily for 4 days PREDNISONE 20 MG ORAL TABLET 518658 PREDNISONE Inactive AZITHROMYCIN 250 MG ORAL TABLET 2 po qd x 1 day, then 1 po qd x 4 days 09/20 AZITHROMYCIN 250 MG ORAL TABLET 046427 AZITHROMYCIN Inactive Advance Directives Directive Description Start [...] AUTO - Chemistry sodium, serum 142 mmol/L 219-507 4150/07/17 carbon dioxide, venous blood 28.2 mmol/L 21.0-32.0 [...] % 11.0-15.0 platelet count 185 THOUSAND/UL 10*3/mm3 282-054 5791/04/14 mean platelet volume 10.9 fL 7.5-12.5 Lab Report: HGBA1C, Basic Metabolic Panel - Chemistry hemoglobin A1C, blood, as % of total hemoglobin 6.9 % 4.3-6.0 sodium, serum 139 mmol/L 000-990 9579/01/04 potassium, serum 3.9 mmol/L 3.5-5.2 chloride, serum 103 mmol/L 98-107 carbon dioxide, venous blood 26.9 mmol/L 21.0-32.0 blood glucose 106 mg/dL 65-110 calcium, serum 9.0 mg/dL 8.5-10.1 urea nitrogen, blood 20 mg/dL 7-18 creatinine, serum 1.46 mg/dL 0.60-1.30 Lab Report: LIPID PANEL, TSH/899, T4, FREE/866 - Chemistry cholesterol, serum 220 mg/dL 426-609 2267/04/14 HDL cholesterol, serum 30 mg/dL > OR=40 [...] 1.80 ng/mL 0.00-4.00 Lab Report: VITAMIN D, 25-HYDROXY/59145 - Chemistry vitamin D 25-hydroxy, serum 25 ng/mL 30-100 Office Visit: Confusion, dizziness after fall - Basic LDL target level 130 mg/dL Office Visit: Confusion, dizziness after fall - Chemistry HDL cholesterol, serum, target level 40 mg/dL triglyceride, target level 150 mg/dL cholesterol, target level 200 mg/dL Encounters Code Encounter Date Provider Facility CPT-82563 Level 4 Est. Patient 13:07:39 BENCH MANAGER Robbie Busby MD [facility] CPT-12790 Level 4 Est. Patient 15:23:44 BENCH MANAGER Desmond Diaz [facility] CPT-47030 Level 3 Est. Patient 15:40:49 CDT Robbie Busby MD [facility] CPT-20726 Level 4 Est. Patient 15:18:19 CDT Robbie Busby MD [facility] CPT-00159 Level 3 Est. Patient 09:00:37 CDT Rober Rodríguez [facility] CPT-85678 Level 3 Est. Patient 16:07:10 CDT Robbie Busby MD [facility] CPT-04960 Level 4 Est. Patient 11:56:16 CDT Erin Garsia [facility] CPT-89436 Level 3 Est. Patient 17:48:02 CDT Robbie Busby MD [facility] CPT-62802 Level 4 Est. Patient 12:00:49 BENCH MANAGER Rober Rodríguez [facility] CPT-35705 Level 3 Est. Patient 09:16:37 CDT Robbie Busby MD [facility] CPT-98913 Level 3 Est. Patient 19:38:43 CDT Robbie Busby MD [facility] CPT-84916 Level 3 Est. Patient 11:53:38 CDT Robbie uBsby MD [facility] CPT-28756 Level 4 Est. Patient 12:52:22 CDT Rober Rodríguez [facility] CPT-10508 Level 4 Est. Patient 22:55:17 CDT Robbie Busby MD [facility] CPT-17610 Level 3 Est. Patient 12:38:24 CDT Desmond Diaz [facility] CPT-51709 Level 4 Est. Patient 11:25:03 BENCH MANAGER Robbie Busby MD [facility] CPT-33162 Level 4 Est. Patient 14:50:10 CDT Robbie Busby MD [facility] CPT-34980 Level 4 Est. Patient 23:30:43 CDT Robbie Busby MD [facility] CPT-45440 Level 4 Est. Patient 10:30:43 CDT Robbie Busby MD [facility] CPT-55855 Level 3 Est. Patient 17:08:12 CDT Alex Shaw [facility] CPT-80035 Level 4 Est. Patient 17:51:38 CDT Robbie Busby MD [facility] CPT-91135 Level 4 Est. Patient 14:00:21 CDT Robbie Busby MD [facility] CPT-27835 Level 4 Est. Patient 12:46:48 CDT Robbie Busby MD [facility] CPT-51037 Level 4 Est. Patient 13:34:33 CDT Robbie Busby MD [facility] CPT-49119 Level 4 Est. Patient 16:58:28 CDT Robbie Busby MD [facility] CPT-95728 Level 3 Est. Patient 19:36:53 CDT Alex ALVAREZ [facility] CPT-49274 Level 3 Est. Patient 12:58:15 CDT Robbie Busby MD [facility] Procedures Code Procedure Name Date Entry Date Standard Description CPT-J1071 Depo Testosterone 200mg 16:13:47 BENCH MANAGER CPT-68780 Abx/Therapy Injection 16:13:46 BENCH MANAGER CPT-J1071 Depo Testosterone 200mg 15:33:58 BENCH MANAGER CPT-26569 Abx/Therapy Injection 15:33:58 BENCH MANAGER CPT-J1071 Depo Testosterone 200mg 09:38:36 BENCH MANAGER CPT-10876 Abx/Therapy Injection 09:38:36 [facility] CPT-J1071 Depo Testosterone 200mg 10:22:56 BENCH MANAGER CPT-83020 Abx/Therapy Injection 10:22:56 BENCH MANAGER CPT-J1071 Depo Testosterone 200mg 15:40:23 CDT CPT-63525 Abx/Therapy Injection 15:40:23 CDT CPT-J1071 Depo Testosterone 200mg 14:20:43 CDT CPT-20108 Abx/Therapy Injection 14:20:43 CDT CPT-J1071 Depo Testosterone 200mg 14:17:22 CDT CPT-50995 Abx/Therapy Injection 14:17:22 CDT CPT-J1071 Depo Testosterone 200mg 09:03:53 CDT CPT-35765 Abx/Therapy Injection 09:03:53 CDT CPT-G0439 [facility] Annual Wellness Exam 16:47:44 CDT CPT-J1071 Depo Testosterone 200mg 09:06:28 CDT CPT-26004 Abx/Therapy Injection 09:06:28 CDT CPT-J1071 Depo Testosterone 200mg 08:30:01 CDT CPT-33963 Abx/Therapy Injection 08:30:01 CDT CPT-J1071 Depo Testosterone 200mg 08:24:00 CDT CPT-90220 Abx/Therapy Injection 08:24:00 CDT CPT-65851 Venipuncture Draw Fee 14:39:06 CDT CPT-87352 Ribs unilateral 2V - XRAY USE ONLY 12:10:11 CDT CPT-38828 First Vx - Ix admin for Medicare patients 16:32:53 CDT CPT-36975 Boostrix Intramuscular Suspension 5-2.5-18.5 16:32:53 CDT CPT-10872 TB Skin Test 11:42:28 CDT CPT-59528 Tdap 7yrs or > 11:42:28 CDT CPT-J0696 Rocephin 1000 mg (Ceftriaxone) 17:43:43 BENCH MANAGER CPT-J1040 Depo Medrol 80 mg (Methyl Prednisolone Acetate) 17:43: 43 BENCH MANAGER CPT-J1100 Decadron 8mg (Dexamethasone) 17:43:42 BENCH MANAGER CPT-48955 Abx/Therapy Injection 17:43:42 BENCH MANAGER CPT-98050 Abx/Therapy Injection 17:43:42 BENCH MANAGER CPT-J1040 Depo Medrol 80 mg (Methyl Prednisolone Acetate) 09:43: 34 BENCH MANAGER CPT-J1100 Decadron 8mg (Dexamethasone) 09:43:34 BENCH MANAGER CPT-J0696 Rocephin 1gm Inj Solr 09:43:34 BENCH MANAGER CPT-33708 Wound Culture - LAB USE ONLY 14:00:21 CDT CPT-I/D I/D Abscess 09:16:37 CDT CPT-77665 Venipuncture Draw Fee 15:20:23 CDT CPT-59851 Microalbumin - LAB USE ONLY 16:02:19 CDT CPT-51907 CBC - LAB USE ONLY 16:02:19 CDT CPT-25448 Venipuncture Draw Fee 16:02:19 CDT CPT-G0438 Initial Annual Wellness Exam 08:10:28 CDT CPT-86939 Venipuncture Draw Fee 13:07:17 CDT CPT-G0008 Administration of Influenza Virus Vaccine 16:09:59 CDT CPT-46912 Fluzone Quadrivalent Intramuscular Suspension 0.5 ML 16: 09:59 CDT CPT-45925 Spec Collection and Handling Fee 15:05:50 CDT
--- OUTSIDE RECORDS SUMMARY | 2018-04-18 12:03 | XMS REPORT | Clinical Summary ---
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 Desmond Diaz DO Other malignant secondary hypertension Tachycardia 785.0 Active Rober Rodríguez [employer] FABRICATOR ASSEMBLER Tachycardia, unspecified Insect bite, infected 919.5 Resolved Desmond Diaz DO Insect bite, nonvenomous, of other, multiple, and unspecified sites, infected Abscess, skin 682.9 Resolved Desmond Diaz DO Cellulitis and abscess of unspecified sites URI 465.9 Resolved Desmond Diaz DO Acute upper respiratory infections of unspecified site Hypertension 401.9 Active Rober Rodríguez [employer] FABRICATOR ASSEMBLER Unspecified essential hypertension Sinusitis - acute 461.9 [...] Hypogonadism, low testosterone 257.2 Active Erin Mai [employer] FABRICATOR ASSEMBLER Other testicular hypofunction Low back pain, chronic [...] Busby MD Body Mass Index 37.0-37.9, adult Low back pain, acute ICD-724.2 Inactive Meily Atwood LABOR AND DELIVERY REGISTERED NURSE Low back pain, chronic ICD-724.2 Inactive Emily Atwood LABOR AND DELIVERY REGISTERED NURSE Bronchitis, acute ICD-466.0 Inactive Emily Atwood LABOR AND DELIVERY REGISTERED NURSE Onychomycosis, toenails ICD-110.1 Inactive Emily Atwood LABOR AND DELIVERY REGISTERED NURSE Dizziness ICD-780.4 Inactive Emily Atwood LABOR AND DELIVERY REGISTERED NURSE 2017 Folliculitis ICD-704.8 Inactive Emily Atwood LABOR AND DELIVERY REGISTERED NURSE Pharyngitis-Acute ICD-462 Inactive Emily Atwood LABOR AND DELIVERY REGISTERED NURSE Fatigue ICD-780.79 Inactive Emily Atwood LABOR AND DELIVERY REGISTERED NURSE 09/20 Hypertension, secondary, malignant ICD-405.09 Inactive Emily Atwood LABOR AND DELIVERY REGISTERED NURSE Insect bite, infected ICD-919.5 Inactive Emily Atwood LABOR AND DELIVERY REGISTERED NURSE Abscess, skin ICD-682.9 Inactive Emily Atwood LABOR AND DELIVERY REGISTERED NURSE URI ICD-465.9 Inactive Emily Atwood LABOR AND DELIVERY REGISTERED NURSE Sinusitis - acute ICD-461.9 Inactive Emily Atwood LABOR AND DELIVERY REGISTERED NURSE Acute confusion ICD-293.0 Inactive Emily Atwood LABOR AND DELIVERY REGISTERED NURSE Headache ICD-784.0 Inactive Emily Atwood LABOR AND DELIVERY REGISTERED NURSE 09/20 Back pain ICD-724.5 Inactive Emily Solisnae [facility] 2017 Rib pain, right sided ICD-786.50 Inactive Emily Rai [facility] Myalgias ICD-729.1 Inactive Emily Atwood LPN 09/20 URI ICD-465.9 Inactive Emily Atwood LPN Bronchitis-Acute ICD-466.0 Inactive Desmond Diaz DO Sinusitis ICD-461.9 Inactive Emily Atwood LPN 2017 Medication List Medication Instructions Start Date Stop Date Generic Name NDC Status Provider Patient Instruction METOPROLOL SUCCINATE ER 200 MG ORAL TABLET EXTENDED RELEASE 24 HOUR take 1 tab po qday for high blood pressure and rapid pulse METOPROLOL SUCCINATE 94834984561 Active Robbie Busby MD Active [id number]-[id number]-5 0.3 MG/24HR TRANSDERMAL PATCH WEEKLY apply 2 patches q week for HTN CLONIDINE HCL 61266284383 No Longer Active Robbie Busby MD Active IMDUR 60 MG ORAL TABLET EXTENDED RELEASE 24 HOUR take 1 tab po qday for blood pressure ISOSORBIDE MONONITRATE 72232281069 No Longer Active Robbie Busby MD Active TEMAZEPAM 15 MG ORAL CAPSULE 1 TAB PO Q HS TEMAZEPAM 45271256226 No Longer Active Robbie Busby MD Active TOPIRAMATE 50 MG ORAL TABLET 1 po BID for migraines TOPIRAMATE 52325395521 No Longer Active Robbie Busby MD Active CYCLOBENZAPRINE HCL 10 MG ORAL TABLET 1 tablet by mouth three times daily as needed for muscle spasm/pain CYCLOBENZAPRINE HCL 46689773678 No Longer Active Robbie Busby MD Active TOPROL XL 200 MG ORAL TABLET EXTENDED RELEASE 24 HOUR Take one by mouth daily METOPROLOL SUCCINATE 56639311831 No Longer Active Robbie Busby MD Active METFORMIN HCL 500 MG ORAL TABLET 1 tablet by mouth daily for diabetes type 2 METFORMIN HCL 67480790405 Active Robbie Busby MD Active SINGULAIR 10 MG ORAL TABLET 1 po qday for allergies. MONTELUKAST SODIUM 17308888421 No Longer Active Robbie Busby MD Active PREDNISONE 20 MG ORAL TABLET two tabs by mouth today, then one tab by mouth days two and three PREDNISONE 51051295400 No Longer Active Robbie Busby MD Active AZITHROMYCIN 250 MG ORAL TABLET 2 po qd x 1 day, then 1 po qd x 4 days 09/20 AZITHROMYCIN 08372017786 No Longer Active Desmond Diaz DO Active TOPIRAMATE 50 MG ORAL TABLET take 1 tab po BID for migraines. TOPIRAMATE 08715912273 No Longer Active Desmond Diaz DO Active CYCLOBENZAPRINE HCL 10 MG ORAL TABLET 1 po TID PRN muscle spasm/pain for 10 days CYCLOBENZAPRINE HCL 87971814069 No Longer Active Desmond Diaz DO Active GUAIFENESIN ER 600 MG ORAL TABLET EXTENDED RELEASE 12 HOUR 1 tab po q am 2016 GUAIFENESIN 11934249578 No Longer Active Robbie Busby MD Active DIVALPROEX SODIUM ER 500 MG ORAL TABLET EXTENDED RELEASE 24 HOUR Once daily DIVALPROEX SODIUM 70176220298 Active Robbie Busby MD Active DEPO-TESTOSTERONE 200 MG/ML INTRAMUSCULAR SOLUTION 1 IM Injections every 2 weeks for low testosterone TESTOSTERONE CYPIONATE 39687317202 Active Zulema Blank LPN Active FLUTICASONE PROPIONATE 50 MCG/ACT NASAL SUSPENSION 2 sprays per nostril bid for 1 week, then 1 spray bid FLUTICASONE PROPIONATE 56211868400 Active Rober Rodríguez APRN Active HYDRALAZINE HCL 25 MG ORAL TABLET Take 1 tab BID. HYDRALAZINE HCL 99788336598 Active Rober Rodríguez APRN Active VITAMIN D3 93551 UNIT ORAL TABLET 2 po weekly CHOLECALCIFEROL 17923390579 Active Robbie Busby MD Active OXYCODONE HCL ER 10 MG ORAL TABLET ER 12 HOUR ABUSE-DETERRENT 1 tab po 3 times qd. OXYCODONE HCL 81817786054 Active Robbie Busby MD Active NITROSTAT 0.4 MG SUBLINGUAL TABLET SUBLINGUAL PRN NITROGLYCERIN 99505235381 No Longer Active Robbie Busby MD Active LORATADINE 10 MG ORAL TABLET 1 tablet by mouth daily for congestion and allergies. LORATADINE 29980248034 No Longer Active Robbie Busby MD Active FLONASE 50 MCG/ACT NASAL SUSPENSION 1 spray each nostril twice daily for allergies and runny nose FLUTICASONE PROPIONATE 43053293136 No Longer Active Robbie Busby MD Active FIORICET 50-300-40 MG ORAL CAPSULE take 1 tab po qday prn migraines. [id number] 32286156908 No Longer Active Robbie Busby MD Active VITAMIN D3 89125 UNIT ORAL CAPSULE 2 CAPS PO WEEKLY CHOLECALCIFEROL 59739955076 No Longer Active Robbie Busby MD Active CYCLOBENZAPRINE HCL 10 MG ORAL TABLET 1 tablet by mouth three times daily as needed for muscle spasm/pain for 10 days CYCLOBENZAPRINE HCL 75856912279 No Longer Active Robbie Busby MD Active PREDNISONE 20 MG ORAL TABLET take 3 tabs daily for 3 days, 2 tabs daily for 3 days, 1 tab daily for 3 days, 1/2 tab daily for 4 days PREDNISONE 61686599626 No Longer Active Erin Mai APRN Active CLONIDINE HCL 0.2 MG ORAL TABLET 1 TAB BY MOUTH EVERY 8 HOURS CLONIDINE HCL 65843447881 No Longer Active Erin Mai APRN Active MECLIZINE HCL 25 MG ORAL TABLET one 4 times a day as needed for dizziness MECLIZINE HCL 61836388258 No Longer Active Erin Arell [employer] FABRICATOR ASSEMBLER Active SPIRONOLACTONE 25 MG ORAL TABLET 4 tablets by mouth daily SPIRONOLACTONE 39519291705 No Longer Active Erin Arell [employer] FABRICATOR ASSEMBLER Active LEVAQUIN 500 MG ORAL TABLET 1 tablet by mouth daily for 7 days LEVOFLOXACIN 48931659955 No Longer Active Erin Riverall [employer] FABRICATOR ASSEMBLER Active BACTRIM DS 800-160 MG ORAL TABLET 1 tab by mouth twice daily 2015 TRIMETHOPRIM-SULFAMETHOXAZOLE 22274899784 No Longer Active Robbie Busby MD Active HYDRALAZINE HCL 50 MG ORAL TABLET TWO BY MOUTH THREE TIMES DAILY HYDRALAZINE HCL 23690998204 No Longer Active Jillina Frazell [employer] FABRICATOR ASSEMBLER Active HYDROCODONE-ACETAMINOPHEN 5-325 MG ORAL TABLET 1 tab by mouth BID prn back pain HYDROCODONE-ACETAMINOPHEN 67442743455 No Longer Active Jillina Frazell [employer] FABRICATOR ASSEMBLER Active HYDROCHLOROTHIAZIDE TABLET Take one by mouth daily HYDROCHLOROTHIAZIDE TABS 81709502167 No Longer Active Jillina Frazell [employer] FABRICATOR ASSEMBLER Active LAMISIL 125 MG ORAL PACKET 1 TAB PO DAILY TERBINAFINE HCL 95757833316 No Longer Active Jillina Frazell [employer] FABRICATOR ASSEMBLER Active TRILEPTAL 150 MG ORAL TABLET 1 TAB PO Q HS OXCARBAZEPINE 70100278112 No Longer Active Jillina Frazell [employer] FABRICATOR ASSEMBLER Active BETADINE 10 % EXTERNAL SOLUTION wash with solution to treat follicultis 07/29 POVIDONE-IODINE 14436099973 No Longer Active Jillina Frazell [employer] FABRICATOR ASSEMBLER Active NYSTATIN 218611 UNIT/ML MOUTH/THROAT SUSPENSION 5mL po QID x 10 days NYSTATIN 19672743053 No Longer Active Erin Riverall [employer] FABRICATOR ASSEMBLER Active PREDNISONE 20 MG ORAL TABLET 1 tablet twice daily for 2 days, then 1 tablet once daily for 2 days PREDNISONE 17812090828 No Longer Active Robbie Busby MD Active CEFDINIR 300 MG ORAL CAPSULE Take 1 cap po bid x 10 days CEFDINIR 05209099911 No Longer Active Robbie Busby MD Active AMLODIPINE BESYLATE 10 MG ORAL TABLET 1 tablet by mouth daily AMLODIPINE BESYLATE 39387351726 Active Robbie Busby MD Active CARVEDILOL 25 MG ORAL TABLET 1 & 1/2 TAB po BID CARVEDILOL 48072532510 Active Robbie Busby MD Active NEXIUM 40 MG ORAL CAPSULE DELAYED RELEASE 1 cap by mouth daily ESOMEPRAZOLE MAGNESIUM 76873729049 Active Robbie Busby MD Active PROTONIX 40 MG INTRAVENOUS SOLUTION RECONSTITUTED 1 po qday for acid reflux PANTOPRAZOLE SODIUM 52235309913 No Longer Active Galileonila Negro Active KEFLEX 500 MG ORAL CAPSULE 1 po TID x 10 days CEPHALEXIN 21810574018 No Longer Active Robbie Busby MD Active ALPRAZOLAM 2 MG ORAL TABLET 1 TAB PO BID ALPRAZOLAM 23930460439 Active Robbie Busby MD Active FENOFIBRATE 145 MG ORAL TABLET Take one by mouth daily FENOFIBRATE 26648358325 No Longer Active Robbie Busby MD Active SPIRONOLACTONE 50 MG ORAL TABLET 1 tablet by mouth twice a day SPIRONOLACTONE 59173964307 No Longer Active Robbie Busby MD Active HYDRALAZINE HCL 25 MG ORAL TABLET 1 tablet by mouth tid for hypertension 2013 HYDRALAZINE HCL 70639310747 No Longer Active Robbie Busby MD Active VIIBRYD 40 MG ORAL TABLET take 1 tab po qday for depression. 2014 VILAZODONE HCL 81241757560 No Longer Active Robbie Busby MD Active TERBINAFINE HCL 250 MG ORAL TABLET 1 tab po qday for foot infection TERBINAFINE HCL 00594775071 No Longer Active Robbie Busby MD Active GABAPENTIN 300 MG ORAL CAPSULE 1 po q hs for nerve pain GABAPENTIN 15786257518 Active Robbie Busby MD Active CHERATUSSIN AC 100-10 MG/5ML ORAL SOLUTION 7.5 mL PO q 4-6 hrs PRN cough 2014 GUAIFENESIN-CODEINE 46070420282 No Longer Active Robbie Busby MD Active AZITHROMYCIN 250 MG ORAL TABLET 2 tablets PO today---then, 1 tablet PO daily x 4 more days (and 1 optional refill) AZITHROMYCIN 55564148745 No Longer Active Robbie Busby MD Active NORVASC 10 MG ORAL TABLET 1 tablet by mouth daily AMLODIPINE BESYLATE 52450349125 No Longer Active Alex ALVAREZ Active ISOSORBIDE DINITRATE 30 MG ORAL TABLET Take one by mouth daily ISOSORBIDE DINITRATE 82512596414 No Longer Active Robbie Busby MD Active VIIBRYD 40 MG ORAL TABLET 1 TA B PO DAILY VILAZODONE HCL 01843097296 Active Robbie Busby MD Active ZITHROMAX 250 MG ORAL TABLET 2 po today, then 1 po q days 2-5 AZITHROMYCIN 30049939591 No Longer Active Robbie Busby MD Active DOXAZOSIN MESYLATE 4 MG ORAL TABLET Take one by mouth daily DOXAZOSIN MESYLATE 22575902367 Active Robbie Busby MD Active VENLAFAXINE HCL ER 150 MG ORAL TABLET EXTENDED RELEASE 24 HOUR Take one by mouth daily VENLAFAXINE HCL 82977111939 Active Robbie Busby MD Active LIPITOR 40 MG ORAL TABLET Take one by mouth daily ATORVASTATIN CALCIUM 95563860578 Active Robbie Busby MD Active ISOSORBIDE DINITRATE 30 MG ORAL TABLET Take one by mouth daily ISOSORBIDE DINITRATE 30 MG ORAL TABLET 062815 ISOSORBIDE DINITRATE Inactive NORVASC 10 MG ORAL TABLET 1 tablet by mouth daily NORVASC 10 MG ORAL TABLET 920446 AMLODIPINE BESYLATE Inactive AZITHROMYCIN 250 MG ORAL TABLET 2 tablets PO today---then, 1 tablet PO daily x 4 more days (and 1 optional refill) AZITHROMYCIN 250 MG ORAL TABLET 806772 AZITHROMYCIN Inactive CHERATUSSIN AC 100-10 MG/5ML ORAL SOLUTION 7.5 mL PO q 4-6 hrs PRN cough 2014 CHERATUSSIN AC 100-10 MG/5ML ORAL SOLUTION 566951 GUAIFENESIN-CODEINE Inactive VIIBRYD 40 MG ORAL TABLET take 1 tab po qday for depression. 2014 VIIBRYD 40 MG ORAL TABLET VILAZODONE HCL Inactive HYDRALAZINE HCL 25 MG ORAL TABLET 1 tablet by mouth tid for hypertension 2013 HYDRALAZINE HCL 25 MG ORAL TABLET 805871 HYDRALAZINE HCL Inactive SPIRONOLACTONE 50 MG ORAL TABLET 1 tablet by mouth twice a day SPIRONOLACTONE 50 MG ORAL TABLET 393912 SPIRONOLACTONE Inactive FENOFIBRATE 145 MG ORAL TABLET Take one by mouth daily FENOFIBRATE 145 MG ORAL TABLET 711589 FENOFIBRATE Inactive PROTONIX 40 MG INTRAVENOUS SOLUTION RECONSTITUTED 1 po qday for acid reflux PROTONIX 40 MG INTRAVENOUS SOLUTION RECONSTITUTED 483211 PANTOPRAZOLE SODIUM Inactive CEFDINIR 300 MG ORAL CAPSULE Take 1 cap po bid x 10 days CEFDINIR 300 MG ORAL CAPSULE 437939 CEFDINIR Inactive PREDNISONE 20 MG ORAL TABLET 1 tablet twice daily for 2 days, then 1 tablet once daily for 2 days PREDNISONE 20 MG ORAL TABLET 200805 PREDNISONE Inactive NYSTATIN 213603 UNIT/ML MOUTH/THROAT SUSPENSION 5mL po QID x 10 days NYSTATIN 121325 UNIT/ML MOUTH/THROAT SUSPENSION 230080 NYSTATIN Inactive BETADINE 10 % EXTERNAL SOLUTION wash with solution to treat follicultis 07/29 BETADINE 10 % EXTERNAL SOLUTION 8053466 POVIDONE-IODINE Inactive TRILEPTAL 150 MG ORAL TABLET 1 TAB PO Q HS TRILEPTAL 150 MG ORAL TABLET 364734 OXCARBAZEPINE Inactive LAMISIL 125 MG ORAL PACKET 1 TAB PO DAILY LAMISIL 125 MG ORAL PACKET TERBINAFINE HCL Inactive HYDROCHLOROTHIAZIDE TABLET Take one by mouth daily HYDROCHLOROTHIAZIDE TABLET HYDROCHLOROTHIAZIDE TABS Inactive HYDROCODONE-ACETAMINOPHEN 5-325 MG ORAL TABLET 1 tab by mouth BID prn back pain HYDROCODONE-ACETAMINOPHEN 5-325 MG ORAL TABLET 115017 HYDROCODONE-ACETAMINOPHEN Inactive HYDRALAZINE HCL 50 MG ORAL TABLET TWO BY MOUTH THREE TIMES DAILY HYDRALAZINE HCL 50 MG ORAL TABLET 048589 HYDRALAZINE HCL Inactive LEVAQUIN 500 MG ORAL TABLET 1 tablet by mouth daily for 7 days LEVAQUIN 500 MG ORAL TABLET 862190 LEVOFLOXACIN Inactive SPIRONOLACTONE 25 MG ORAL TABLET 4 tablets by mouth daily SPIRONOLACTONE 25 MG ORAL TABLET 226221 SPIRONOLACTONE Inactive MECLIZINE HCL 25 MG ORAL TABLET one 4 times a day as needed for dizziness MECLIZINE HCL 25 MG ORAL TABLET 122480 MECLIZINE HCL Inactive CLONIDINE HCL 0.2 MG ORAL TABLET 1 TAB BY MOUTH EVERY 8 HOURS CLONIDINE HCL 0.2 MG ORAL TABLET 851766 CLONIDINE HCL Inactive CYCLOBENZAPRINE HCL 10 MG ORAL TABLET 1 tablet by mouth three times daily as needed for muscle spasm/pain for 10 days CYCLOBENZAPRINE HCL 10 MG ORAL TABLET 814940 CYCLOBENZAPRINE HCL Inactive VITAMIN D3 71628 UNIT ORAL CAPSULE 2 CAPS PO WEEKLY VITAMIN D3 18551 UNIT ORAL CAPSULE CHOLECALCIFEROL Inactive FIORICET 50-300-40 MG ORAL CAPSULE take 1 tab po qday prn migraines. FIORICET 50-300-40 MG ORAL CAPSULE 584327 BUTALBITAL-APAP- CAFFEINE Inactive FLONASE 50 MCG/ACT NASAL SUSPENSION 1 spray each nostril twice daily for allergies and runny nose FLONASE 50 MCG/ACT NASAL SUSPENSION 9862388 FLUTICASONE PROPIONATE Inactive LORATADINE 10 MG ORAL TABLET 1 tablet by mouth daily for congestion and allergies. LORATADINE 10 MG ORAL TABLET 775795 LORATADINE Inactive NITROSTAT 0.4 MG SUBLINGUAL TABLET SUBLINGUAL PRN NITROSTAT 0.4 MG SUBLINGUAL TABLET SUBLINGUAL 733707 NITROGLYCERIN Inactive GUAIFENESIN ER 600 MG ORAL TABLET EXTENDED RELEASE 12 HOUR 1 tab po q am 2016 GUAIFENESIN ER 600 MG ORAL TABLET EXTENDED RELEASE 12 HOUR GUAIFENESIN Inactive CYCLOBENZAPRINE HCL 10 MG ORAL TABLET 1 po TID PRN muscle spasm/pain for 10 days CYCLOBENZAPRINE HCL 10 MG ORAL TABLET 686657 CYCLOBENZAPRINE HCL Inactive TOPIRAMATE 50 MG ORAL TABLET take 1 tab po BID for migraines. TOPIRAMATE 50 MG ORAL TABLET 884695 TOPIRAMATE Inactive PREDNISONE 20 MG ORAL TABLET two tabs by mouth today, then one tab by mouth days two and three PREDNISONE 20 MG ORAL TABLET 849438 PREDNISONE Inactive TOPROL XL 200 MG ORAL TABLET EXTENDED RELEASE 24 HOUR Take one by mouth daily TOPROL XL 200 MG ORAL TABLET EXTENDED RELEASE 24 HOUR METOPROLOL SUCCINATE Inactive CYCLOBENZAPRINE HCL 10 MG ORAL TABLET 1 tablet by mouth three times daily as needed for muscle spasm/pain CYCLOBENZAPRINE HCL 10 MG ORAL TABLET 459530 CYCLOBENZAPRINE HCL Inactive TOPIRAMATE 50 MG ORAL TABLET 1 po BID for migraines TOPIRAMATE 50 MG ORAL TABLET 735265 TOPIRAMATE Inactive TEMAZEPAM 15 MG ORAL CAPSULE 1 TAB PO Q HS TEMAZEPAM 15 MG ORAL CAPSULE 736715 TEMAZEPAM Inactive IMDUR 60 MG ORAL TABLET EXTENDED RELEASE 24 HOUR take 1 tab po qday for blood pressure IMDUR 60 MG ORAL TABLET EXTENDED RELEASE 24 HOUR ISOSORBIDE MONONITRATE Inactive [id number]-LYM-2 0.3 MG/24HR TRANSDERMAL PATCH WEEKLY apply 2 patches q week for HTN FLVAIOXN-PBW-1 0.3 MG/24HR TRANSDERMAL PATCH WEEKLY 794511 CLONIDINE HCL Inactive ZITHROMAX 250 MG ORAL TABLET 2 po today, then 1 po q days 2-5 ZITHROMAX 250 MG ORAL TABLET 096967 AZITHROMYCIN Inactive TERBINAFINE HCL 250 MG ORAL TABLET 1 tab po qday for foot infection TERBINAFINE HCL 250 MG ORAL TABLET 039647 TERBINAFINE HCL Inactive KEFLEX 500 MG ORAL CAPSULE 1 po TID x 10 days KEFLEX 500 MG ORAL CAPSULE 873400 CEPHALEXIN Inactive BACTRIM DS 800-160 MG ORAL TABLET 1 tab by mouth twice daily 2015 BACTRIM DS 800-160 MG ORAL TABLET 909327 TRIMETHOPRIM- SULFAMETHOXAZOLE Inactive PREDNISONE 20 MG ORAL TABLET take 3 tabs daily for 3 days, 2 tabs daily for 3 days, 1 tab daily for 3 days, 1/2 tab daily for 4 days PREDNISONE 20 MG ORAL TABLET 478746 PREDNISONE Inactive AZITHROMYCIN 250 MG ORAL TABLET 2 po qd x 1 day, then 1 po qd x 4 days 09/20 AZITHROMYCIN 250 MG ORAL TABLET 585681 AZITHROMYCIN Inactive SINGULAIR 10 MG ORAL TABLET 1 po qday for allergies. SINGULAIR 10 MG ORAL TABLET 812598 MONTELUKAST SODIUM Inactive Advance Directives Directive Description [...] AUTO - Chemistry sodium, serum 142 mmol/L 979-565 6687/07/17 carbon dioxide, venous blood 28.2 mmol/L 21.0-32.0 [...] % 11.0-15.0 platelet count 185 THOUSAND/UL 10*3/mm3 970-303 0420/04/14 mean platelet volume 10.9 fL 7.5-12.5 Lab Report: Comp. Metabolic Panel - Chemistry sodium, serum 141 mmol/L 321-150 4515/02/13 carbon dioxide, venous blood 23.9 mmol/L 21.0-32.0 [...] 6.9 % 4.3-6.0 sodium, serum 139 mmol/L 818-853 8213/01/04 potassium, serum 3.9 mmol/L 3.5-5.2 chloride, serum 103 mmol/L 98-107 carbon dioxide, venous blood 26.9 mmol/L 21.0-32.0 blood glucose 106 mg/dL 65-110 calcium, serum 9.0 mg/dL 8.5-10.1 urea nitrogen, blood 20 mg/dL 7-18 creatinine, serum 1.46 mg/dL 0.60-1.30 Lab Report: LIPID PANEL, TSH/899, T4, FREE/866 - Chemistry cholesterol, serum 220 mg/dL 983-089 2235/04/14 HDL cholesterol, serum 30 mg/dL > OR=40 [...] 1.80 ng/mL 0.00-4.00 Lab Report: VITAMIN D, 25-HYDROXY/27781 - Chemistry vitamin D 25-hydroxy, serum 25 ng/mL 30-100 Office Visit: Confusion, dizziness after fall - Basic LDL target level 130 mg/dL Office Visit: Confusion, dizziness after fall - Chemistry HDL cholesterol, serum, target level 40 mg/dL triglyceride, target level 150 mg/dL cholesterol, target level 200 mg/dL Encounters Code Encounter Date Provider Facility CPT-24670 Level 4 Est. Patient 09:50:01 [employer]GGING OPERATIONS INSPECTOR Robbie Busby MD [facility] CPT-78853 Level 4 Est. Patient 09:42:08 LOGGING OPERATIONS INSPECTOR Robbie Busby MD [facility] CPT-89967 Level 4 Est. Patient 13:07:39 LOGGING OPERATIONS INSPECTOR Robbie Busby MD [facility] CPT-29029 Level 4 Est. Patient 15:23:44 LOGGING OPERATIONS INSPECTOR Desmond Diaz DO [facility] CPT-06183 Level 3 Est. Patient 15:40:49 CDT Robbie Busby MD [facility] CPT-82024 Level 4 Est. Patient 15:18:19 CDT Robbie Busby MD [facility] CPT-51305 Level 3 Est. Patient 09:00:37 CDT Rober Rodríguez APRN [facility] CPT-31159 Level 3 Est. Patient 16:07:10 CDT Robbie Busby MD [facility] CPT-31076 Level 4 Est. Patient 11:56:16 CDT Erin Mai [facility] CPT-55113 Level 3 Est. Patient 17:48:02 CDT Robbie Busby MD [facility] CPT-15879 Level 4 Est. Patient 12:00:49 LOGGING OPERATIONS INSPECTOR Rober Rodríguez [facility] CPT-35382 Level 3 Est. Patient 09:16:37 CDT Robbie Busby MD [facility] CPT-15698 Level 3 Est. Patient 19:38:43 CDT Robbie Busby MD [facility] CPT-02567 Level 3 Est. Patient 11:53:38 CDT Robbie Busby MD [facility] CPT-72600 Level 4 Est. Patient 12:52:22 CDT Rober Rodríguez [facility] CPT-27999 Level 4 Est. Patient 22:55:17 CDT Robbie Busby MD [facility] CPT-52763 Level 3 Est. Patient 12:38:24 CDT Desmond Diaz DO [facility] CPT-79721 Level 4 Est. Patient 11:25:03 LOGGING OPERATIONS INSPECTOR Robbie Busby MD [facility] CPT-30040 Level 4 Est. Patient 14:50:10 CDT Robbie Busby MD [facility] CPT-11300 Level 4 Est. Patient 23:30:43 CDT Robbie Busby MD [facility] CPT-33530 Level 4 Est. Patient 10:30:43 CDT Robbie Busby MD [facility] CPT-37642 Level 3 Est. Patient 17:08:12 CDT Alex ALVAREZ [facility] CPT-03261 Level 4 Est. Patient 17:51:38 CDT Robbie Busby MD [facility] CPT-59595 Level 4 Est. Patient 14:00:21 CDT Robbie Busby MD [facility] CPT-21737 Level 4 Est. Patient 12:46:48 CDT Robbie Busby MD [facility] CPT-78094 Level 4 Est. Patient 13:34:33 CDT Robbie Busby MD [facility] CPT-54269 Level 4 Est. Patient 16:58:28 CDT Robbie Busby MD [facility] CPT-31497 Level 3 Est. Patient 19:36:53 CDT Alex ALVAREZ [facility] CPT-75362 Level 3 Est. Patient 12:58:15 CDT Robbie Busby MD [facility] Procedures Code Procedure Name Date Entry Date Standard Description CPT-J1071 Depo Testosterone 200mg 16:10:29 [facility] CPT-44607 Abx/Therapy Injection 16:10:29 [facility] CPT-J1071 Depo Testosterone 200mg 16:13:47 [facility] CPT-18566 Abx/Therapy Injection 16:13:46 [facility] CPT-J1071 Depo Testosterone 200mg 15:33:58 [employer]ING [employer]PERATIONS INSPECTOR CPT-80324 Abx/Therapy Injection 15:33:58 [facility] CPT-J1071 Depo Testosterone 200mg 09:38:36 [employer]GGING OPERATIONS INSPECTOR CPT-05689 Abx/Therapy Injection 09:38:36 [employer]GGING OPERATIONS INSPECTOR CPT-J1071 Depo Testosterone 200mg 10:22:56 [employer]ING [employer]PERATIONS INSPECTOR CPT-63351 Abx/Therapy Injection 10:22:56 [employer]GGING OPERATIONS INSPECTOR CPT-J1071 Depo Testosterone 200mg 15:40:23 CDT CPT-77783 Abx/Therapy Injection 15:40:23 CDT CPT-J1071 Depo Testosterone 200mg 14:20:43 CDT CPT-77252 Abx/Therapy Injection 14:20:43 CDT CPT-J1071 Depo Testosterone 200mg 14:17:22 CDT CPT-43603 Abx/Therapy Injection 14:17:22 CDT CPT-J1071 Depo Testosterone 200mg 09:03:53 CDT CPT-53538 Abx/Therapy Injection 09:03:53 CDT CPT-G0439 [facility] Annual Wellness Exam 16:47:44 CDT CPT-J1071 Depo Testosterone 200mg 09:06:28 CDT CPT-94513 Abx/Therapy Injection 09:06:28 CDT CPT-J1071 Depo Testosterone 200mg 08:30:01 CDT CPT-09677 Abx/Therapy Injection 08:30:01 CDT CPT-J1071 Depo Testosterone 200mg 08:24:00 CDT CPT-34858 Abx/Therapy Injection 08:24:00 CDT CPT-82245 Venipuncture Draw Fee 14:39:06 CDT CPT-81420 Ribs unilateral 2V - XRAY USE ONLY 12:10:11 CDT CPT-10814 First Vx - Ix admin for Medicare patients 16:32:53 CDT CPT-66525 Boostrix Intramuscular Suspension 5-2.5-18.5 16:32:53 CDT CPT-03773 TB Skin Test 11:42:28 CDT CPT-76396 Tdap 7yrs or > 11:42:28 CDT CPT-J0696 Rocephin 1000 mg (Ceftriaxone) 17:43:43 LOGGING OPERATIONS INSPECTOR CPT-J1040 Depo Medrol 80 mg (Methyl Prednisolone Acetate) 17:43: 43 LOGGING OPERATIONS INSPECTOR CPT-J1100 Decadron 8mg (Dexamethasone) 17:43:42 LOGGING OPERATIONS INSPECTOR CPT-57675 Abx/Therapy Injection 17:43:42 LOGGING OPERATIONS INSPECTOR CPT-60619 Abx/Therapy Injection 17:43:42 LOGGING OPERATIONS INSPECTOR CPT-J1040 Depo Medrol 80 mg (Methyl Prednisolone Acetate) 09:43: 34 LOGGING OPERATIONS INSPECTOR CPT-J1100 Decadron 8mg (Dexamethasone) 09:43:34 LOGGING OPERATIONS INSPECTOR CPT-J0696 Rocephin 1gm Inj Solr 09:43:34 LOGGING OPERATIONS INSPECTOR CPT-15946 Wound Culture - LAB USE ONLY 14:00:21 CDT CPT-I/D I/D Abscess 09:16:37 CDT CPT-48457 Venipuncture Draw Fee 15:20:23 CDT CPT-31633 Microalbumin - LAB USE ONLY 16:02:19 CDT CPT-03912 CBC - LAB USE ONLY 16:02:19 CDT CPT-39552 Venipuncture Draw Fee 16:02:19 CDT CPT-G0438 Initial Annual Wellness Exam 08:10:28 CDT CPT-07796 Venipuncture Draw Fee 13:07:17 CDT CPT-G0008 Administration of Influenza Virus Vaccine 16:09:59 CDT CPT-54058 Fluzone Quadrivalent Intramuscular Suspension 0.5 ML 16: 09:59 CDT CPT-57017 Spec Collection and Handling Fee 15:05:50 CDT
--- OUTSIDE RECORDS SUMMARY | 2018-04-18 12:04 | XMS REPORT | Clinical Summary ---
Author Author Admin, [facility] Organization [facility] Address Unknown Phone [...] to conditions classified elsewhere Headache 784.0 Active rEin Garsia APRN Headache Back pain 724.5 Active [...] Status Provider Patient Instruction GUAIFENESIN 600 MG [id number] 1 tab po q am GUAIFENESIN 03845889304 Active Jillina Frazell IT SERVICE MANAGER Active FLUTICASONE PROPIONATE 50 MCG/ACT SUSP 2 sprays per nostril bid for 1 week, then 1 spray bid FLUTICASONE PROPIONATE 92479529834 Active Jillina Frazell IT SERVICE MANAGER Active HYDRALAZINE HCL 25 MG ORAL TABS Take 1 tab BID. HYDRALAZINE HCL 68990601031 Active Jillina Frazell IT SERVICE MANAGER Active VITAMIN D3 80041 UNIT ORAL TABS 2 po weekly CHOLECALCIFEROL 89719285771 Active KATHIE MoncadaNara Active OXYCODONE HCL ER 10 MG ORAL T12A 1 tab po 3 times qd. OXYCODONE HCL 50355608748 Active Robbie Busby MD Active NITROSTAT 0.4 MG SUBL PRN NITROGLYCERIN 83277900304 No Longer Active Robbie Busby MD Active LORATADINE 10 MG TABS 1 tablet by mouth daily for congestion and allergies. LORATADINE 64804592712 No Longer Active Robbie Busby MD Active FLONASE 50 MCG/ACT SUSP 1 spray each nostril twice daily for allergies and runny nose FLUTICASONE PROPIONATE 38572963490 No Longer Active Robbie Busby MD Active FIORICET 50-300-40 MG ORAL CAPS take 1 tab po qday prn migraines. [id number] 00432280748 No Longer Active Robbie Busby MD Active VITAMIN D3 87286 UNIT CAPS 2 CAPS PO WEEKLY CHOLECALCIFEROL 02220208075 No Longer Active Robbie Busby MD Active CYCLOBENZAPRINE HCL 10 MG TABS 1 tablet by mouth three times daily as needed for muscle spasm/pain for 10 days CYCLOBENZAPRINE HCL 44142345102 No Longer Active Robbie Busby MD Active PREDNISONE 20 MG TAB take 3 tabs daily for 3 days, 2 tabs daily for 3 days, 1 tab daily for 3 days, 1/2 tab daily for 4 days PREDNISONE 42699818287 No Longer Active Erin Garsia APRN Active CLONIDINE HCL 0.2 MG ORAL TABS 1 TAB BY MOUTH EVERY 8 HOURS 12/29 CLONIDINE HCL 02955516121 No Longer Active Erin Garsia APRN Active MECLIZINE HCL 25 MG TAB one 4 times a day as needed for dizziness MECLIZINE HCL 90400773469 No Longer Active Erin Garsia APRN Active SPIRONOLACTONE 25 MG TAB 4 tablets by mouth daily SPIRONOLACTONE 57237497660 No Longer Active Erin Garsia APRN Active LEVAQUIN 500 MG TAB 1 tablet by mouth daily for 7 days LEVOFLOXACIN 48154704295 No Longer Active Erin Garsia APRN Active BACTRIM DS 800-160 MG TAB 1 tab by mouth twice daily TRIMETHOPRIM-SULFAMETHOXAZOLE 03913746314 No Longer Active Robbie Busby MD Active HYDRALAZINE HCL 50 MG ORAL TABS TWO BY MOUTH THREE TIMES DAILY HYDRALAZINE HCL 65000898206 No Longer Active Jillina Frazell IT SERVICE MANAGER Active HYDROCODONE-ACETAMINOPHEN 5-325 MG TABS 1 tab by mouth BID prn back pain 2013 HYDROCODONE-ACETAMINOPHEN 90180310258 No Longer Active Jillina Frazell IT SERVICE MANAGER Active HYDROCHLOROTHIAZIDE TABS Take one by mouth daily HYDROCHLOROTHIAZIDE TABS 93317807776 No Longer Active Jillina Frazell IT SERVICE MANAGER Active LAMISIL 125 MG ORAL PACK 1 TAB PO DAILY TERBINAFINE HCL 84499782442 No Longer Active Jillina Frazell IT SERVICE MANAGER Active TRILEPTAL 150 MG ORAL TABS 1 TAB PO Q HS OXCARBAZEPINE 04151833888 No Longer Active Jillina Frazell IT SERVICE MANAGER Active BETADINE 10 % EXT SOLN wash with solution to treat follicultis POVIDONE-IODINE 46611988227 No Longer Active Jillina Frakierstenl IT SERVICE MANAGER Active NYSTATIN 639550 UNIT/ML M/T SUSP 5mL po QID x 10 days NYSTATIN 53968979159 No Longer Active Erin Garsia APRN Active PREDNISONE 20 MG TAB 1 tablet twice daily for 2 days, then 1 tablet once daily for 2 days PREDNISONE 68307223910 No Longer Active Robbie Busby MD Active CEFDINIR 300 MG ORAL CAPS Take 1 cap po bid x 10 days CEFDINIR 59939054821 No Longer Active Robbie Busby MD Active AMLODIPINE BESYLATE 10 MG TABS 1 tablet by mouth daily AMLODIPINE BESYLATE 31370111200 Active Robbie Busby MD Active CARVEDILOL 25 MG TABS 1 & 1/2 TAB po BID CARVEDILOL 23179340312 Active Robbie Busby MD Active NEXIUM 40 MG CPDR 1 cap by mouth daily ESOMEPRAZOLE MAGNESIUM 72101652107 Active Robbie Busby MD Active PROTONIX 40 MG SOLR 1 po qday for acid reflux PANTOPRAZOLE SODIUM 64324529739 No Longer Active Gali Raida Active KEFLEX 500 MG CAP 1 po TID x 10 days CEPHALEXIN 58671103802 No Longer Active Robbie Busby MD Active TOPIRAMATE 50 MG ORAL TABS take 1 tab po BID for migraines. TOPIRAMATE 09503358757 Active Robbie Busby MD Active TEMAZEPAM 15 MG ORAL CAPS 1 TAB PO Q HS TEMAZEPAM 73311074043 Active Robbie Busby MD Active ALPRAZOLAM 2 MG ORAL TABS 1 TAB PO BID ALPRAZOLAM 99946755536 Active Robbie Busby MD Active FENOFIBRATE 145 MG TABS Take one by mouth daily FENOFIBRATE 87112446577 No Longer Active Robbie Busby MD Active SPIRONOLACTONE 50 MG TABS 1 tablet by mouth twice a day SPIRONOLACTONE 18619747248 No Longer Active Robbie Busby MD Active HYDRALAZINE HCL 25 MG TABS 1 tablet by mouth tid for hypertension HYDRALAZINE HCL 90874264442 No Longer Active Robbie Busby MD Active VIIBRYD 40 MG TABS take 1 tab po qday for depression. VILAZODONE HCL 46535453326 No Longer Active Robbie Busby MD Active TERBINAFINE HCL 250 MG TABS 1 tab po qday for foot infection 2014 TERBINAFINE HCL 65869995771 No Longer Active Robbie Busby MD Active GABAPENTIN 300 MG CAPS 1 po q hs for nerve pain GABAPENTIN 85106311960 Active Robbie Busby MD Active CHERATUSSIN AC 100-10 MG/5ML ORAL SOLN 7.5 mL PO q 4-6 hrs PRN cough GUAIFENESIN-CODEINE 95311168166 No Longer Active Robbie Busby MD Active AZITHROMYCIN 250 MG ORAL TABS 2 tablets PO today---then, 1 tablet PO daily x 4 more days (and 1 optional refill) AZITHROMYCIN 96877404525 No Longer Active Robbie Busby MD Active NORVASC 10 MG TAB 1 tablet by mouth daily AMLODIPINE BESYLATE 82425927209 No Longer Active Alex ALVAREZ Active IMDUR 60 MG TAB CR take 1 tab po qday for blood pressure ISOSORBIDE MONONITRATE Active Robbie Busby MD Active ISOSORBIDE DINITRATE 30 MG TABS Take one by mouth daily ISOSORBIDE DINITRATE 64317708284 No Longer Active Robbie Busby MD Active VIIBRYD 40 MG TABS 1 TA B PO DAILY VILAZODONE HCL 36889773623 Active Robbie Busby MD Active ZITHROMAX 250 MG TAB 2 po today, then 1 po q days 2-5 AZITHROMYCIN 72276479241 No Longer Active Robbie Busby MD Active [id number] 0.3 MG/24HR PTWK apply 2 patches q week for HTN CLONIDINE HCL 66842637964 Active Robbie Busby MD Active DOXAZOSIN MESYLATE 4 MG TABS Take one by mouth daily DOXAZOSIN MESYLATE 95289906235 Active Robbie Busby MD Active TOPROL XL 200 MG [id number] Take one by mouth daily METOPROLOL SUCCINATE 05868218049 Active Robbie Busby MD Active VENLAFAXINE HCL ER 150 MG [id number] Take one by mouth daily VENLAFAXINE HCL 25591176885 Active Robbie Busby MD Active LIPITOR 40 MG TABS Take one by mouth daily ATORVASTATIN CALCIUM 24010246933 Active Robbie Busby MD Active ISOSORBIDE DINITRATE 30 MG TABS Take one by mouth daily ISOSORBIDE DINITRATE 30 MG TABS 015959 ISOSORBIDE DINITRATE Inactive NORVASC 10 MG TAB 1 tablet by mouth daily NORVASC 10 MG TAB 788492 AMLODIPINE BESYLATE Inactive AZITHROMYCIN 250 MG ORAL TABS 2 tablets PO today---then, 1 tablet PO daily x 4 more days (and 1 optional refill) AZITHROMYCIN 250 MG ORAL TABS 7967396 AZITHROMYCIN Inactive CHERATUSSIN AC 100-10 MG/5ML ORAL SOLN 7.5 mL PO q 4-6 hrs PRN cough CHERATUSSIN AC 100-10 MG/5ML ORAL SOLN 787310 GUAIFENESIN- CODEINE Inactive VIIBRYD 40 MG TABS take 1 tab po qday for depression. VIIBRYD 40 MG TABS VILAZODONE HCL Inactive HYDRALAZINE HCL 25 MG TABS 1 tablet by mouth tid for hypertension HYDRALAZINE HCL 25 MG TABS 472901 HYDRALAZINE HCL Inactive SPIRONOLACTONE 50 MG TABS 1 tablet by mouth twice a day SPIRONOLACTONE 50 MG TABS 035632 SPIRONOLACTONE Inactive FENOFIBRATE 145 MG TABS Take one by mouth daily FENOFIBRATE 145 MG TABS 210188 FENOFIBRATE Inactive PROTONIX 40 MG SOLR 1 po qday for acid reflux PROTONIX 40 MG SOLR 925873 PANTOPRAZOLE SODIUM Inactive CEFDINIR 300 MG ORAL CAPS Take 1 cap po bid x 10 days CEFDINIR 300 MG ORAL CAPS 736640 CEFDINIR Inactive PREDNISONE 20 MG TAB 1 tablet twice daily for 2 days, then 1 tablet once daily for 2 days PREDNISONE 20 MG TAB 982139 PREDNISONE Inactive NYSTATIN 920936 UNIT/ML M/T SUSP 5mL po QID x 10 days NYSTATIN 807020 UNIT/ML M/T SUSP 100182 NYSTATIN Inactive BETADINE 10 % EXT SOLN wash with solution to treat follicultis BETADINE 10 % EXT SOLN 6730067 POVIDONE-IODINE Inactive TRILEPTAL 150 MG ORAL TABS 1 TAB PO Q HS TRILEPTAL 150 MG ORAL TABS 147833 OXCARBAZEPINE Inactive LAMISIL 125 MG ORAL PACK 1 TAB PO DAILY LAMISIL 125 MG ORAL PACK TERBINAFINE HCL Inactive HYDROCHLOROTHIAZIDE TABS Take one by mouth daily HYDROCHLOROTHIAZIDE TABS HYDROCHLOROTHIAZIDE TABS Inactive HYDROCODONE-ACETAMINOPHEN 5-325 MG TABS 1 tab by mouth BID prn back pain 2013 HYDROCODONE-ACETAMINOPHEN 5-325 MG TABS 945218 HYDROCODONE -ACETAMINOPHEN Inactive HYDRALAZINE HCL 50 MG ORAL TABS TWO BY MOUTH THREE TIMES DAILY HYDRALAZINE HCL 50 MG ORAL TABS 371210 HYDRALAZINE HCL Inactive LEVAQUIN 500 MG TAB 1 tablet by mouth daily for 7 days LEVAQUIN 500 MG TAB 738117 LEVOFLOXACIN Inactive SPIRONOLACTONE 25 MG TAB 4 tablets by mouth daily SPIRONOLACTONE 25 MG TAB 393503 SPIRONOLACTONE Inactive MECLIZINE HCL 25 MG TAB one 4 times a day as needed for dizziness MECLIZINE HCL 25 MG TAB 125288 MECLIZINE HCL Inactive CLONIDINE HCL 0.2 MG ORAL TABS 1 TAB BY MOUTH EVERY 8 HOURS 12/29 CLONIDINE HCL 0.2 MG ORAL TABS 060786 CLONIDINE HCL Inactive CYCLOBENZAPRINE HCL 10 MG TABS 1 tablet by mouth three times daily as needed for muscle spasm/pain for 10 days CYCLOBENZAPRINE HCL 10 MG TABS 736975 CYCLOBENZAPRINE HCL Inactive VITAMIN D3 66207 UNIT CAPS 2 CAPS PO WEEKLY VITAMIN D3 26405 UNIT CAPS CHOLECALCIFEROL Inactive FIORICET 50-300-40 MG ORAL CAPS take 1 tab po qday prn migraines. FIORICET 50-300-40 MG ORAL CAPS 521144 CRUVIHMYRQ-OKVL-ICCAEWIM Inactive FLONASE 50 MCG/ACT SUSP 1 spray each nostril twice daily for allergies and runny nose FLONASE 50 MCG/ACT SUSP 3096581 FLUTICASONE PROPIONATE Inactive LORATADINE 10 MG TABS 1 tablet by mouth daily for congestion and allergies. LORATADINE 10 MG TABS 698682 LORATADINE Inactive NITROSTAT 0.4 MG SUBL PRN NITROSTAT 0.4 MG SUBL 285839 NITROGLYCERIN Inactive ZITHROMAX 250 MG TAB 2 po today, then 1 po q days 2-5 ZITHROMAX 250 MG TAB 4621102 AZITHROMYCIN Inactive TERBINAFINE HCL 250 MG TABS 1 tab po qday for foot infection 2014 TERBINAFINE HCL 250 MG TABS 020777 TERBINAFINE HCL Inactive KEFLEX 500 MG CAP 1 po TID x 10 days KEFLEX 500 MG CAP 490512 CEPHALEXIN Inactive BACTRIM DS 800-160 MG TAB 1 tab by mouth twice daily BACTRIM DS 800-160 MG TAB 639314 TRIMETHOPRIM-SULFAMETHOXAZOLE Inactive PREDNISONE 20 MG TAB take 3 tabs daily for 3 days, 2 tabs daily for 3 days, 1 tab daily for 3 days, 1/2 tab daily for 4 days PREDNISONE 20 MG TAB 817627 PREDNISONE Inactive Advance Directives Directive Description Start [...] AUTO - Chemistry sodium, serum 142 mmol/L 125-484 2715/07/17 carbon dioxide, venous blood 28.2 mmol/L 21.0-32.0 [...] % 11.0-15.0 platelet count 185 THOUSAND/UL 10*3/mm3 896-159 0248/04/14 mean platelet volume 10.9 fL 7.5-12.5 Lab Report: LIPID PANEL, TSH/899, T4, FREE/866 - Chemistry cholesterol, serum 220 mg/dL 639-418 9840/04/14 HDL cholesterol, serum 30 mg/dL > OR=40 [...] mg/dL Encounters Code Encounter Date Provider Facility CPT-21302 Level 3 Est. Patient 09:00:37 CDT Rober Rodríguez [facility] CPT-78940 Level 3 Est. Patient 16:07:10 CDT Robbie Busby MD [facility] CPT-87087 Level 4 Est. Patient 11:56:16 CDT Erin Garsia [facility] CPT-29309 Level 3 Est. Patient 17:48:02 CDT Robbie Busby MD [facility] CPT-96619 Level 4 Est. Patient 12:00:49 BUSINESS MANAGEMENT ASSOCIATE Rober Rodríguez [facility] CPT-17308 Level 3 Est. Patient 09:16:37 CDT Robbie Busby MD [facility] CPT-34469 Level 3 Est. Patient 19:38:43 CDT Robbie Busby MD [facility] CPT-34284 Level 3 Est. Patient 11:53:38 CDT Robbie Busby MD [facility] CPT-91628 Level 4 Est. Patient 12:52:22 CDT Rober Rodríguez [facility] CPT-04763 Level 4 Est. Patient 22:55:17 CDT Robbie Busby MD [facility] CPT-38783 Level 3 Est. Patient 12:38:24 CDT Desmond Diaz DO [facility] CPT-91874 Level 4 Est. Patient 11:25:03 BUSINESS MANAGEMENT ASSOCIATE Robbie Busby MD [facility] CPT-86513 Level 4 Est. Patient 14:50:10 CDT Robbie Busby MD [facility] CPT-82098 Level 4 Est. Patient 23:30:43 CDT Robbie Busby MD [facility] CPT-76994 Level 4 Est. Patient 10:30:43 CDT Robbie Busby MD [facility] CPT-56607 Level 3 Est. Patient 17:08:12 CDT Alex ALVAREZ [facility] CPT-25300 Level 4 Est. Patient 17:51:38 CDT Robbie Busby MD [facility] CPT-74988 Level 4 Est. Patient 14:00:21 CDT Robbie Busby MD [facility] CPT-72720 Level 4 Est. Patient 12:46:48 CDT Robbie Busby MD [facility] CPT-10201 Level 4 Est. Patient 13:34:33 CDT Robbie Busby MD [facility] CPT-12527 Level 4 Est. Patient 16:58:28 CDT Robbie Busby MD [facility] CPT-52804 Level 3 Est. Patient 19:36:53 CDT Alex ALVAREZ [facility] CPT-98912 Level 3 Est. Patient 12:58:15 CDT Robbie Busby MD [facility] Procedures Code Procedure Name Date Entry Date Standard Description CPT-23240 Venipuncture Draw Fee 14:39:06 CDT CPT-18588 Ribs unilateral 2V - XRAY USE ONLY 12:10:11 CDT CPT-09151 First Vx - Ix admin for Medicare patients 16:32:53 CDT CPT-22593 Boostrix Intramuscular Suspension 5-2.5-18.5 16:32:53 CDT CPT-53095 TB Skin Test 11:42:28 CDT CPT-18653 Tdap 7yrs or > 11:42:28 CDT CPT-J0696 Rocephin 1000 mg (Ceftriaxone) 17:43:43 BUSINESS MANAGEMENT ASSOCIATE CPT-J1040 Depo Medrol 80 mg (Methyl Prednisolone Acetate) 17:43: 43 BUSINESS MANAGEMENT ASSOCIATE CPT-J1100 Decadron 8mg (Dexamethasone) 17:43:42 BUSINESS MANAGEMENT ASSOCIATE CPT-65369 Abx/Therapy Injection 17:43:42 BUSINESS MANAGEMENT ASSOCIATE CPT-57431 Abx/Therapy Injection 17:43:42 BUSINESS MANAGEMENT ASSOCIATE CPT-J1040 Depo Medrol 80 mg (Methyl Prednisolone Acetate) 09:43: 34 BUSINESS MANAGEMENT ASSOCIATE CPT-J1100 Decadron 8mg (Dexamethasone) 09:43:34 BUSINESS MANAGEMENT ASSOCIATE CPT-J0696 Rocephin 1gm Inj Solr 09:43:34 BUSINESS MANAGEMENT ASSOCIATE CPT-84570 Wound Culture - LAB USE ONLY 14:00:21 CDT CPT-I/D I/D Abscess 09:16:37 CDT CPT-50840 Venipuncture Draw Fee 15:20:23 CDT CPT-30483 Microalbumin - LAB USE ONLY 16:02:19 CDT CPT-48434 CBC - LAB USE ONLY 16:02:19 CDT CPT-79326 Venipuncture Draw Fee 16:02:19 CDT CPT-G0438 Initial Annual Wellness Exam 08:10:28 CDT CPT-29158 Venipuncture Draw Fee 13:07:17 CDT CPT-G0008 Administration of Influenza Virus Vaccine 16:09:59 CDT CPT-88880 Fluzone Quadrivalent Intramuscular Suspension 0.5 ML 16: 09:59 CDT CPT-35371 Spec Collection and Handling Fee 15:05:50 CDT
--- OUTSIDE RECORDS SUMMARY | 2018-04-18 12:05 | XMS REPORT | Clinical Summary ---
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 on machines, 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 Fatigue 780.79 Resolved Desmond Diaz DO Other malaise and fatigue Hypertension, secondary, 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2 Active Erin Garsia SEAM STEAMER Other testicular hypofunction Low back pain, chronic 724.2 Active Robbie Busby MD Lumbago Bronchitis-Acute 466.0 Inactive Desmond Howell Joe DO Acute bronchitis Polydipsia 783.5 Active Desmond Dante Joe DO Polydipsia Sinusitis ICD-461.9 Inactive Emily Atwood REPRESENTATIVE GOVERNMENT RELATIONS 2017 Low back pain, acute ICD-724.2 Inactive Emily Atwood REPRESENTATIVE GOVERNMENT RELATIONS Low back pain, chronic ICD-724.2 Inactive Emily Atwood REPRESENTATIVE GOVERNMENT RELATIONS Bronchitis, acute ICD-466.0 Inactive Emily Atwood REPRESENTATIVE GOVERNMENT RELATIONS Onychomycosis, toenails ICD-110.1 Inactive Emily Atwood REPRESENTATIVE GOVERNMENT RELATIONS Dizziness ICD-780.4 Inactive Emily Atwood REPRESENTATIVE GOVERNMENT RELATIONS 2017 Folliculitis ICD-704.8 Inactive Emily Atwood REPRESENTATIVE GOVERNMENT RELATIONS Pharyngitis-Acute ICD-462 Inactive Emily Atwood REPRESENTATIVE GOVERNMENT RELATIONS Fatigue ICD-780.79 Inactive Emily Atwood REPRESENTATIVE GOVERNMENT RELATIONS 09/20 Hypertension, secondary, malignant ICD-405.09 Inactive Emily Atwood REPRESENTATIVE GOVERNMENT RELATIONS Insect bite, infected ICD-919.5 Inactive Emily Atwood REPRESENTATIVE GOVERNMENT RELATIONS Abscess, skin ICD-682.9 Inactive Emily Atwood REPRESENTATIVE GOVERNMENT RELATIONS URI ICD-465.9 Inactive Emily Atwood REPRESENTATIVE GOVERNMENT RELATIONS Sinusitis - acute ICD-461.9 Inactive Emily Atwood REPRESENTATIVE GOVERNMENT RELATIONS Acute confusion ICD-293.0 Inactive Emily Atwood REPRESENTATIVE GOVERNMENT RELATIONS Headache ICD-784.0 Inactive Emily Atwood REPRESENTATIVE GOVERNMENT RELATIONS 09/20 Back pain ICD-724.5 Inactive Emily Atwood REPRESENTATIVE GOVERNMENT RELATIONS 2017 Rib pain, right sided ICD-786.50 Inactive Emily Atwood REPRESENTATIVE GOVERNMENT RELATIONS Myalgias ICD-729.1 Inactive Emily Atwood REPRESENTATIVE GOVERNMENT RELATIONS 09/20 URI ICD-465.9 Inactive Emily Colónmarianne CISSE Bronchitis-Acute ICD-466.0 Inactive Desmond Diaz DO Medication List Medication Instructions Start Date Stop Date Generic Name NDC Status Provider Patient Instruction TOPIRAMATE 50 MG ORAL TABLET 1 po BID for migraines TOPIRAMATE 21283592725 Active JONATHAN Moncada Active PREDNISONE 20 MG ORAL TABLET two tabs by mouth today, then one tab by mouth days two and three PREDNISONE 54045984970 Active Desmond Diaz DO Active AZITHROMYCIN 250 MG ORAL TABLET 2 po qd x 1 day, then 1 po qd x 4 days 09/20 AZITHROMYCIN 08132339134 No Longer Active Desmond Diaz DO Active TOPIRAMATE 50 MG ORAL TABLET take 1 tab po BID for migraines. TOPIRAMATE 05211419763 No Longer Active Desmond Diaz DO Active CYCLOBENZAPRINE HCL 10 MG ORAL TABLET 1 po TID PRN muscle spasm/pain for 10 days CYCLOBENZAPRINE HCL 01534612226 No Longer Active Desmond Diaz DO Active GUAIFENESIN ER 600 MG ORAL TABLET EXTENDED RELEASE 12 HOUR 1 tab po q am 2016 GUAIFENESIN 99255117017 No Longer Active Robbie Busby MD Active DIVALPROEX SODIUM ER 500 MG ORAL TABLET EXTENDED RELEASE 24 HOUR Once daily DIVALPROEX SODIUM 14405749159 Active Robbie Busby MD Active DEPO-TESTOSTERONE 200 MG/ML INTRAMUSCULAR SOLUTION 1 IM Injections every 2 weeks for low testosterone TESTOSTERONE CYPIONATE 35887449821 Active Zulema Blank LPN Active FLUTICASONE PROPIONATE 50 MCG/ACT NASAL SUSPENSION 2 sprays per nostril bid for 1 week, then 1 spray bid FLUTICASONE PROPIONATE 25807127871 Active Rober Rodríguez APRN Active HYDRALAZINE HCL 25 MG ORAL TABLET Take 1 tab BID. HYDRALAZINE HCL 39930649211 Active Rober Rodríguez APRN Active VITAMIN D3 74446 UNIT ORAL TABLET 2 po weekly CHOLECALCIFEROL 16601952258 Active Robbie Busby MD Active OXYCODONE HCL ER 10 MG ORAL TABLET ER 12 HOUR ABUSE-DETERRENT 1 tab po 3 times qd. OXYCODONE HCL 49935728343 Active Robbie Busby MD Active NITROSTAT 0.4 MG SUBLINGUAL TABLET SUBLINGUAL PRN NITROGLYCERIN 67543686868 No Longer Active Robbie Busby MD Active LORATADINE 10 MG ORAL TABLET 1 tablet by mouth daily for congestion and allergies. LORATADINE 59044465351 No Longer Active Robbie Busby MD Active FLONASE 50 MCG/ACT NASAL SUSPENSION 1 spray each nostril twice daily for allergies and runny nose FLUTICASONE PROPIONATE 42813226188 No Longer Active Robbei Busby MD Active FIORICET 50-300-40 MG ORAL CAPSULE take 1 tab po qday prn migraines. [id number] 89684118339 No Longer Active Robbie Busby MD Active VITAMIN D3 51565 UNIT ORAL CAPSULE 2 CAPS PO WEEKLY CHOLECALCIFEROL 03364894516 No Longer Active Robbie Busby MD Active CYCLOBENZAPRINE HCL 10 MG ORAL TABLET 1 tablet by mouth three times daily as needed for muscle spasm/pain for 10 days CYCLOBENZAPRINE HCL 06258724769 No Longer Active Robbie Busby MD Active PREDNISONE 20 MG ORAL TABLET take 3 tabs daily for 3 days, 2 tabs daily for 3 days, 1 tab daily for 3 days, 1/2 tab daily for 4 days PREDNISONE 85200280217 No Longer Active Erin Garsia APRN Active CLONIDINE HCL 0.2 MG ORAL TABLET 1 TAB BY MOUTH EVERY 8 HOURS CLONIDINE HCL 37557589535 No Longer Active Erin Garsia APRN Active MECLIZINE HCL 25 MG ORAL TABLET one 4 times a day as needed for dizziness MECLIZINE HCL 92675880172 No Longer Active Erin Garsia APRN Active SPIRONOLACTONE 25 MG ORAL TABLET 4 tablets by mouth daily SPIRONOLACTONE 90541541220 No Longer Active Erin Garsia APRN Active LEVAQUIN 500 MG ORAL TABLET 1 tablet by mouth daily for 7 days LEVOFLOXACIN 98968595649 No Longer Active Erin Garsia APRN Active BACTRIM DS 800-160 MG ORAL TABLET 1 tab by mouth twice daily 2015 TRIMETHOPRIM-SULFAMETHOXAZOLE 13648216602 No Longer Active Robbie Busby MD Active HYDRALAZINE HCL 50 MG ORAL TABLET TWO BY MOUTH THREE TIMES DAILY HYDRALAZINE HCL 32509731421 No Longer Active Jillina Frazelariana GONZALEZN Active HYDROCODONE-ACETAMINOPHEN 5-325 MG ORAL TABLET 1 tab by mouth BID prn back pain HYDROCODONE-ACETAMINOPHEN 52896708757 No Longer Active Jillina Frazell SEAM STEAMER Active HYDROCHLOROTHIAZIDE TABLET Take one by mouth daily HYDROCHLOROTHIAZIDE TABS 33467370777 No Longer Active Jillina Frazell SEAM STEAMER Active LAMISIL 125 MG ORAL PACKET 1 TAB PO DAILY TERBINAFINE HCL 34754691407 No Longer Active Jillina Frazell SEAM STEAMER Active TRILEPTAL 150 MG ORAL TABLET 1 TAB PO Q HS OXCARBAZEPINE 67363330860 No Longer Active Jillina Frazell SEAM STEAMER Active BETADINE 10 % EXTERNAL SOLUTION wash with solution to treat follicultis 07/29 POVIDONE-IODINE 92995072200 No Longer Active Jillina Frazell SEAM STEAMER Active NYSTATIN 331126 UNIT/ML MOUTH/THROAT SUSPENSION 5mL po QID x 10 days NYSTATIN 51973219310 No Longer Active Erin Garsia APRN Active PREDNISONE 20 MG ORAL TABLET 1 tablet twice daily for 2 days, then 1 tablet once daily for 2 days PREDNISONE 98467101616 No Longer Active Robbie Busby MD Active CEFDINIR 300 MG ORAL CAPSULE Take 1 cap po bid x 10 days CEFDINIR 57226135423 No Longer Active Robbie Busby MD Active AMLODIPINE BESYLATE 10 MG ORAL TABLET 1 tablet by mouth daily AMLODIPINE BESYLATE 58501851058 Active Robbie Busby MD Active CARVEDILOL 25 MG ORAL TABLET 1 & 1/2 TAB po BID CARVEDILOL 15451789357 Active Robbie Busby MD Active NEXIUM 40 MG ORAL CAPSULE DELAYED RELEASE 1 cap by mouth daily ESOMEPRAZOLE MAGNESIUM 63035184741 Active Robbie Busby MD Active PROTONIX 40 MG INTRAVENOUS SOLUTION RECONSTITUTED 1 po qday for acid reflux PANTOPRAZOLE SODIUM 53159088957 No Longer Active Gali Raida Active KEFLEX 500 MG ORAL CAPSULE 1 po TID x 10 days CEPHALEXIN 41467758063 No Longer Active Robbie Busby MD Active TEMAZEPAM 15 MG ORAL CAPSULE 1 TAB PO Q HS TEMAZEPAM 28549962098 Active Robbie Busby MD Active ALPRAZOLAM 2 MG ORAL TABLET 1 TAB PO BID ALPRAZOLAM 39571776006 Active Robbie Busby MD Active FENOFIBRATE 145 MG ORAL TABLET Take one by mouth daily FENOFIBRATE 37859166493 No Longer Active Robbie Busby MD Active SPIRONOLACTONE 50 MG ORAL TABLET 1 tablet by mouth twice a day SPIRONOLACTONE 50374451010 No Longer Active Robbie Busby MD Active HYDRALAZINE HCL 25 MG ORAL TABLET 1 tablet by mouth tid for hypertension 2013 HYDRALAZINE HCL 92980628484 No Longer Active Robbie Busby MD Active VIIBRYD 40 MG ORAL TABLET take 1 tab po qday for depression. 2014 VILAZODONE HCL 00753638594 No Longer Active Robbie Busby MD Active TERBINAFINE HCL 250 MG ORAL TABLET 1 tab po qday for foot infection TERBINAFINE HCL 19418797104 No Longer Active Robbie Busby MD Active GABAPENTIN 300 MG ORAL CAPSULE 1 po q hs for nerve pain GABAPENTIN 77303894841 Active Robbie Busby MD Active CHERATUSSIN AC 100-10 MG/5ML ORAL SOLUTION 7.5 mL PO q 4-6 hrs PRN cough 2014 GUAIFENESIN-CODEINE 75461445421 No Longer Active Robbie Busby MD Active AZITHROMYCIN 250 MG ORAL TABLET 2 tablets PO today---then, 1 tablet PO daily x 4 more days (and 1 optional refill) AZITHROMYCIN 18175522766 No Longer Active Robbie Busby MD Active NORVASC 10 MG ORAL TABLET 1 tablet by mouth daily AMLODIPINE BESYLATE 51203167229 No Longer Active Alex ALVAREZ Active IMDUR 60 MG ORAL TABLET EXTENDED RELEASE 24 HOUR take 1 tab po qday for blood pressure ISOSORBIDE MONONITRATE 35567540964 Active Robbie Busby MD Active ISOSORBIDE DINITRATE 30 MG ORAL TABLET Take one by mouth daily ISOSORBIDE DINITRATE 52668915749 No Longer Active Robbie Busby MD Active VIIBRYD 40 MG ORAL TABLET 1 TA B PO DAILY VILAZODONE HCL 82607069374 Active Robbie Busby MD Active ZITHROMAX 250 MG ORAL TABLET 2 po today, then 1 po q days 2-5 AZITHROMYCIN 42261383753 No Longer Active Robbie Busby MD Active [id number] 0.3 MG/24HR TRANSDERMAL PATCH WEEKLY apply 2 patches q week for HTN CLONIDINE HCL 78967659134 Active Robbie Busby MD Active DOXAZOSIN MESYLATE 4 MG ORAL TABLET Take one by mouth daily DOXAZOSIN MESYLATE 04326291919 Active Robbie Busby MD Active TOPROL XL 200 MG ORAL TABLET EXTENDED RELEASE 24 HOUR Take one by mouth daily METOPROLOL SUCCINATE 24867735174 Active Robbie Busby MD Active VENLAFAXINE HCL ER 150 MG ORAL TABLET EXTENDED RELEASE 24 HOUR Take one by mouth daily VENLAFAXINE HCL 47374891338 Active Robbie Busby MD Active LIPITOR 40 MG ORAL TABLET Take one by mouth daily ATORVASTATIN CALCIUM 05183391347 Active Robbie Busby MD Active ISOSORBIDE DINITRATE 30 MG ORAL TABLET Take one by mouth daily ISOSORBIDE DINITRATE 30 MG ORAL TABLET 203915 ISOSORBIDE DINITRATE Inactive NORVASC 10 MG ORAL TABLET 1 tablet by mouth daily NORVASC 10 MG ORAL TABLET 241187 AMLODIPINE BESYLATE Inactive AZITHROMYCIN 250 MG ORAL TABLET 2 tablets PO today---then, 1 tablet PO daily x 4 more days (and 1 optional refill) AZITHROMYCIN 250 MG ORAL TABLET 929728 AZITHROMYCIN Inactive CHERATUSSIN AC 100-10 MG/5ML ORAL SOLUTION 7.5 mL PO q 4-6 hrs PRN cough 2014 CHERATUSSIN AC 100-10 MG/5ML ORAL SOLUTION 348217 GUAIFENESIN-CODEINE Inactive VIIBRYD 40 MG ORAL TABLET take 1 tab po qday for depression. 2014 VIIBRYD 40 MG ORAL TABLET VILAZODONE HCL Inactive HYDRALAZINE HCL 25 MG ORAL TABLET 1 tablet by mouth tid for hypertension 2013 HYDRALAZINE HCL 25 MG ORAL TABLET 404144 HYDRALAZINE HCL Inactive SPIRONOLACTONE 50 MG ORAL TABLET 1 tablet by mouth twice a day SPIRONOLACTONE 50 MG ORAL TABLET 114786 SPIRONOLACTONE Inactive FENOFIBRATE 145 MG ORAL TABLET Take one by mouth daily FENOFIBRATE 145 MG ORAL TABLET 327875 FENOFIBRATE Inactive PROTONIX 40 MG INTRAVENOUS SOLUTION RECONSTITUTED 1 po qday for acid reflux PROTONIX 40 MG INTRAVENOUS SOLUTION RECONSTITUTED 250126 PANTOPRAZOLE SODIUM Inactive CEFDINIR 300 MG ORAL CAPSULE Take 1 cap po bid x 10 days CEFDINIR 300 MG ORAL CAPSULE 725146 CEFDINIR Inactive PREDNISONE 20 MG ORAL TABLET 1 tablet twice daily for 2 days, then 1 tablet once daily for 2 days PREDNISONE 20 MG ORAL TABLET 600687 PREDNISONE Inactive NYSTATIN 966941 UNIT/ML MOUTH/THROAT SUSPENSION 5mL po QID x 10 days NYSTATIN 356971 UNIT/ML MOUTH/THROAT SUSPENSION 301779 NYSTATIN Inactive BETADINE 10 % EXTERNAL SOLUTION wash with solution to treat follicultis 07/29 BETADINE 10 % EXTERNAL SOLUTION 3250719 POVIDONE-IODINE Inactive TRILEPTAL 150 MG ORAL TABLET 1 TAB PO Q HS TRILEPTAL 150 MG ORAL TABLET 234542 OXCARBAZEPINE Inactive LAMISIL 125 MG ORAL PACKET 1 TAB PO DAILY LAMISIL 125 MG ORAL PACKET TERBINAFINE HCL Inactive HYDROCHLOROTHIAZIDE TABLET Take one by mouth daily HYDROCHLOROTHIAZIDE TABLET HYDROCHLOROTHIAZIDE TABS Inactive HYDROCODONE-ACETAMINOPHEN 5-325 MG ORAL TABLET 1 tab by mouth BID prn back pain HYDROCODONE-ACETAMINOPHEN 5-325 MG ORAL TABLET 448051 HYDROCODONE-ACETAMINOPHEN Inactive HYDRALAZINE HCL 50 MG ORAL TABLET TWO BY MOUTH THREE TIMES DAILY HYDRALAZINE HCL 50 MG ORAL TABLET 320653 HYDRALAZINE HCL Inactive LEVAQUIN 500 MG ORAL TABLET 1 tablet by mouth daily for 7 days LEVAQUIN 500 MG ORAL TABLET 149307 LEVOFLOXACIN Inactive SPIRONOLACTONE 25 MG ORAL TABLET 4 tablets by mouth daily SPIRONOLACTONE 25 MG ORAL TABLET 971336 SPIRONOLACTONE Inactive MECLIZINE HCL 25 MG ORAL TABLET one 4 times a day as needed for dizziness MECLIZINE HCL 25 MG ORAL TABLET 332584 MECLIZINE HCL Inactive CLONIDINE HCL 0.2 MG ORAL TABLET 1 TAB BY MOUTH EVERY 8 HOURS CLONIDINE HCL 0.2 MG ORAL TABLET 595189 CLONIDINE HCL Inactive CYCLOBENZAPRINE HCL 10 MG ORAL TABLET 1 tablet by mouth three times daily as needed for muscle spasm/pain for 10 days CYCLOBENZAPRINE HCL 10 MG ORAL TABLET 688636 CYCLOBENZAPRINE HCL Inactive VITAMIN D3 38779 UNIT ORAL CAPSULE 2 CAPS PO WEEKLY VITAMIN D3 29950 UNIT ORAL CAPSULE CHOLECALCIFEROL Inactive FIORICET 50-300-40 MG ORAL CAPSULE take 1 tab po qday prn migraines. FIORICET 50-300-40 MG ORAL CAPSULE 797616 BUTALBITAL-APAP- CAFFEINE Inactive FLONASE 50 MCG/ACT NASAL SUSPENSION 1 spray each nostril twice daily for allergies and runny nose FLONASE 50 MCG/ACT NASAL SUSPENSION 0661348 FLUTICASONE PROPIONATE Inactive LORATADINE 10 MG ORAL TABLET 1 tablet by mouth daily for congestion and allergies. LORATADINE 10 MG ORAL TABLET 706266 LORATADINE Inactive NITROSTAT 0.4 MG SUBLINGUAL TABLET SUBLINGUAL PRN NITROSTAT 0.4 MG SUBLINGUAL TABLET SUBLINGUAL 266196 NITROGLYCERIN Inactive GUAIFENESIN ER 600 MG ORAL TABLET EXTENDED RELEASE 12 HOUR 1 tab po q am 2016 GUAIFENESIN ER 600 MG ORAL TABLET EXTENDED RELEASE 12 HOUR GUAIFENESIN Inactive CYCLOBENZAPRINE HCL 10 MG ORAL TABLET 1 po TID PRN muscle spasm/pain for 10 days CYCLOBENZAPRINE HCL 10 MG ORAL TABLET 006594 CYCLOBENZAPRINE HCL Inactive TOPIRAMATE 50 MG ORAL TABLET take 1 tab po BID for migraines. TOPIRAMATE 50 MG ORAL TABLET 228103 TOPIRAMATE Inactive ZITHROMAX 250 MG ORAL TABLET 2 po today, then 1 po q days 2-5 ZITHROMAX 250 MG ORAL TABLET 448628 AZITHROMYCIN Inactive TERBINAFINE HCL 250 MG ORAL TABLET 1 tab po qday for foot infection TERBINAFINE HCL 250 MG ORAL TABLET 995402 TERBINAFINE HCL Inactive KEFLEX 500 MG ORAL CAPSULE 1 po TID x 10 days KEFLEX 500 MG ORAL CAPSULE 765288 CEPHALEXIN Inactive BACTRIM DS 800-160 MG ORAL TABLET 1 tab by mouth twice daily 2015 BACTRIM DS 800-160 MG ORAL TABLET 989981 TRIMETHOPRIM- SULFAMETHOXAZOLE Inactive PREDNISONE 20 MG ORAL TABLET take 3 tabs daily for 3 days, 2 tabs daily for 3 days, 1 tab daily for 3 days, 1/2 tab daily for 4 days PREDNISONE 20 MG ORAL TABLET 005545 PREDNISONE Inactive AZITHROMYCIN 250 MG ORAL TABLET 2 po qd x 1 day, then 1 po qd x 4 days 09/20 AZITHROMYCIN 250 MG ORAL TABLET 402182 AZITHROMYCIN Inactive Advance Directives Directive Description Start [...] mm[Hg] BP dle rio blood pressure, systolic 140 mm[Hg] BP [...] AUTO - Chemistry sodium, serum 142 mmol/L 144-115 0203/07/17 carbon dioxide, venous blood 28.2 mmol/L 21.0-32.0 [...] % 11.0-15.0 platelet count 185 THOUSAND/UL 10*3/mm3 190-871 2940/04/14 mean platelet volume 10.9 fL 7.5-12.5 Lab Report: HGBA1C, Basic Metabolic Panel - Chemistry hemoglobin A1C, blood, as % of total hemoglobin 6.9 % 4.3-6.0 sodium, serum 139 mmol/L 050-218 7536/01/04 potassium, serum 3.9 mmol/L 3.5-5.2 chloride, serum 103 mmol/L 98-107 carbon dioxide, venous blood 26.9 mmol/L 21.0-32.0 blood glucose 106 mg/dL 65-110 calcium, serum 9.0 mg/dL 8.5-10.1 urea nitrogen, blood 20 mg/dL 7-18 creatinine, serum 1.46 mg/dL 0.60-1.30 Lab Report: LIPID PANEL, TSH/899, T4, FREE/866 - Chemistry cholesterol, serum 220 mg/dL 485-096 5871/04/14 HDL cholesterol, serum 30 mg/dL > OR=40 [...] 1.80 ng/mL 0.00-4.00 Lab Report: VITAMIN D, 25-HYDROXY/21989 - Chemistry vitamin D 25-hydroxy, serum 25 ng/mL 30-100 Office Visit: Confusion, dizziness after fall - Basic LDL target level 130 mg/dL Office Visit: Confusion, dizziness after fall - Chemistry HDL cholesterol, serum, target level 40 mg/dL triglyceride, target level 150 mg/dL cholesterol, target level 200 mg/dL Encounters Code Encounter Date Provider Facility CPT-33474 Level 4 Est. 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 Patient 15:40:49 CDT Robbie Busby MD [facility] CPT-71564 Level 4 Est. Patient 15:18:19 CDT Robbie Busby MD [facility] CPT-51650 Level 3 Est. Patient 09:00:37 CDT Rober Rodríguez [facility] CPT-80895 Level 3 Est. Patient 16:07:10 CDT Robbie Busby MD [facility] CPT-63892 Level 4 Est. Patient 11:56:16 CDT Erin Garsia [facility] CPT-37750 Level 3 Est. Patient 17:48:02 CDT Robbie Busby MD [facility] CPT-41987 Level 4 Est. Patient 12:00:49 ENVELOPE FOLDING MACHINE OPERATOR Rober Rodríguez [facility] CPT-10330 Level 3 Est. Patient 09:16:37 CDT Robbie Busby MD [facility] CPT-68039 Level 3 Est. Patient 19:38:43 CDT Robbie Busby MD [facility]-89885 Level 3 Est. Patient 11:53:38 CDT Robbie Busby MD [facility]-18356 Level 4 Est. Patient 12:52:22 CDT Rober Rodríguez APRN [facility]-34333 Level 4 Est. Patient 22:55:17 CDT Robbie Busby MD [facility]-99832 Level 3 Est. Patient 12:38:24 CDT Desmond Diaz DO [facility]-62096 Level 4 Est. Patient 11:25:03 ENVELOPE FOLDING MACHINE OPERATOR Robbie Busby MD [facility]-45760 Level 4 Est. Patient 14:50:10 CDT Robbie Busyb MD [facility]-78467 Level 4 Est. Patient 23:30:43 CDT Robbie Busby MD [facility] CPT-13963 Level 4 Est. Patient 10:30:43 CDT Robbie Busby MD [facility]-27194 Level 3 Est. Patient 17:08:12 CDT Alex ALVAREZ [facility] CPT-47029 Level 4 Est. Patient 17:51:38 CDT Robbie Busby MD [facility]-65549 Level 4 Est. Patient 14:00:21 CDT Robbie Busby MD [facility]-02376 Level 4 Est. Patient 12:46:48 CDT Robbie Busby MD [facility]-61294 Level 4 Est. Patient 13:34:33 CDT Robbie Busby MD [facility]-29744 Level 4 Est. Patient 16:58:28 CDT Robbie Busby MD [facility] CPT-50793 Level 3 Est. Patient 19:36:53 CDT Alex ALVAREZ [facility] CPT-34303 Level 3 Est. 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 FOLDING MACHINE OPERATOR CPT-34081 Abx/Therapy Injection 15:33:58 ENVELOPE FOLDING MACHINE OPERATOR CPT-J1071 Depo Testosterone 200mg 09:38:36 ENVELOPE FOLDING MACHINE OPERATOR CPT-50257 Abx/Therapy Injection 09:38:36 ENVELOPE FOLDING MACHINE OPERATOR CPT-J1071 Depo Testosterone 200mg 10:22:56 ENVELOPE FOLDING MACHINE OPERATOR CPT-52639 Abx/Therapy Injection 10:22:56 ENVELOPE FOLDING MACHINE OPERATOR CPT-J1071 Depo Testosterone 200mg 15:40:23 CDT CPT-28522 Abx/Therapy Injection 15:40:23 CDT CPT-J1071 Depo Testosterone 200mg 14:20:43 CDT CPT-97038 Abx/Therapy Injection 14:20:43 CDT CPT-J1071 Depo Testosterone 200mg 14:17:22 CDT CPT-94092 Abx/Therapy Injection 14:17:22 CDT CPT-J1071 Depo Testosterone 200mg 09:03:53 CDT CPT-11789 Abx/Therapy Injection 09:03:53 CDT CPT-G0439 [facility] Annual Wellness Exam 16:47:44 CDT CPT-J1071 Depo Testosterone 200mg 09:06:28 CDT CPT-69307 Abx/Therapy Injection 09:06:28 CDT CPT-J1071 Depo Testosterone 200mg 08:30:01 CDT CPT-97195 Abx/Therapy Injection 08:30:01 CDT CPT-J1071 Depo Testosterone 200mg 08:24:00 CDT CPT-80785 Abx/Therapy Injection 08:24:00 CDT CPT-34249 Venipuncture Draw Fee 14:39:06 CDT CPT-92350 Ribs unilateral 2V - XRAY USE ONLY 12:10:11 CDT CPT-45548 First Vx - Ix admin for Medicare patients 16:32:53 CDT CPT-84351 Boostrix Intramuscular Suspension 5-2.5-18.5 16:32:53 CDT CPT-12425 TB Skin Test 11:42:28 CDT CPT-01708 Tdap 7yrs or > 11:42:28 CDT CPT-J0696 Rocephin 1000 mg (Ceftriaxone) 17:43:43 ENVELOPE FOLDING MACHINE OPERATOR CPT-J1040 Depo Medrol 80 mg (Methyl Prednisolone Acetate) 17:43: 43 ENVELOPE FOLDING MACHINE OPERATOR CPT-J1100 Decadron 8mg (Dexamethasone) 17:43:42 ENVELOPE FOLDING MACHINE OPERATOR CPT-42411 Abx/Therapy Injection 17:43:42 ENVELOPE FOLDING MACHINE OPERATOR CPT-55153 Abx/Therapy Injection 17:43:42 ENVELOPE FOLDING MACHINE OPERATOR CPT-J1040 Depo Medrol 80 mg (Methyl Prednisolone Acetate) 09:43: 34 ENVELOPE FOLDING MACHINE OPERATOR CPT-J1100 Decadron 8mg (Dexamethasone) 09:43:34 ENVELOPE FOLDING MACHINE OPERATOR CPT-J0696 Rocephin 1gm Inj Solr 09:43:34 ENVELOPE FOLDING MACHINE OPERATOR CPT-53536 Wound Culture - LAB USE ONLY 14:00:21 CDT CPT-I/D I/D Abscess 09:16:37 CDT CPT-60967 Venipuncture Draw Fee 15:20:23 CDT CPT-97023 Microalbumin - LAB USE ONLY 16:02:19 CDT CPT-92684 CBC - LAB USE ONLY 16:02:19 CDT CPT-39257 Venipuncture Draw Fee 16:02:19 CDT CPT-G0438 Initial Annual Wellness Exam 08:10:28 CDT CPT-95287 Venipuncture Draw Fee 13:07:17 CDT CPT-G0008 Administration of Influenza Virus Vaccine 16:09:59 CDT CPT-67286 Fluzone Quadrivalent Intramuscular Suspension 0.5 ML 16: 09:59 CDT CPT-73767 Spec Collection and Handling Fee 15:05:50 CDT
--- OUTSIDE RECORDS SUMMARY | 2018-04-18 12:06 | XMS REPORT | Clinical Summary ---
Author Author Admin, E Organization [facility] Address Unknown Phone Unavailable Allergies, Adverse Reactions, [...] chronic, stage III 585.3 Active Ca Garcia [facility] Chronic kidney disease, Stage III (moderate) C V A / Stroke Active Robbie Busby MD Myocardial Infarction: Active Robbie Busby MD Acute myocardial infarction, unspecified site, initial episode of care ( History of) Sleep apnea, chronic 780.57 Active Erin Garsia [employer]IC[employer] Unspecified sleep apnea Continuous positive airway pressure rx V46.2 Active Erin Garsia [employer]ER SERVICER Other dependence on machines, 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 Fatigue 780.79 Resolved Desmond Diaz DO Other malaise and fatigue Hypertension, secondary, 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 Desmond Diaz DO Other malignant secondary hypertension Tachycardia 785.0 Active Rober Rodríguez [employer] SERVICER Tachycardia, unspecified Insect bite, infected 919.5 Resolved Desmond Diaz DO Insect bite, nonvenomous, of other, multiple, and unspecified sites, infected Abscess, skin 682.9 Resolved Desmond Diaz DO Cellulitis and abscess of unspecified sites URI 465.9 Resolved Desmond Diaz DO Acute upper respiratory infections of unspecified site Hypertension 401.9 Active Rober Rodríguez [employer] SERVICER Unspecified essential hypertension Sinusitis - acute 461.9 [...] Hypogonadism, low testosterone 257.2 Active Erin Garsia [employer]ING METER SERVICER Other testicular hypofunction Low back pain, chronic 724.2 Active Robbie Busby MD Lumbago Bronchitis-Acute 466.0 Active Desmond Dante Joe DO Acute bronchitis Polydipsia 783.5 Active Desmond Dante Joe DO Polydipsia Sinusitis ICD-461.9 Inactive Emily Atwood [employer]RAYON PAINTER 2017 Low back pain, acute ICD-724.2 Inactive Emily Atwood CRAYON PAINTER Low back pain, chronic ICD-724.2 Inactive Emily Atwood CRAYON PAINTER Bronchitis, acute ICD-466.0 Inactive Emily Atwood CRAYON PAINTER Onychomycosis, toenails ICD-110.1 Inactive Emily Atwood CRAYON PAINTER Dizziness ICD-780.4 Inactive Emily Atwood CRAYON PAINTER 2017 Folliculitis ICD-704.8 Inactive Emily Atwood CRAYON PAINTER Pharyngitis-Acute ICD-462 Inactive Emily Atwood CRAYON PAINTER Fatigue ICD-780.79 Inactive Emily Atwodo CRAYON PAINTER 09/20 Hypertension, secondary, malignant ICD-405.09 Inactive Emily Atwood CRAYON PAINTER Insect bite, infected ICD-919.5 Inactive Emily Atwood CRAYON PAINTER Abscess, skin ICD-682.9 Inactive Emily Atwood CRAYON PAINTER URI ICD-465.9 Inactive Emily Atwood CRAYON PAINTER Sinusitis - acute ICD-461.9 Inactive Emily Atwood CRAYON PAINTER Acute confusion ICD-293.0 Inactive Emily Atwood CRAYON PAINTER Headache ICD-784.0 Inactive Emily Atwood CRAYON PAINTER 09/20 Back pain ICD-724.5 Inactive Emily Atwood CRAYON PAINTER 2017 Rib pain, right sided ICD-786.50 Inactive Emily Atwood CRAYON PAINTER Myalgias ICD-729.1 Inactive Emily Atwood CRAYON PAINTER 09/20 URI ICD-465.9 Inactive Emily Atwood TANNA Medication List Medication Instructions Start Date Stop Date Generic Name NDC Status Provider Patient Instruction PREDNISONE 20 MG ORAL TABLET two tabs by mouth today, then one tab by mouth days two and three PREDNISONE 87372782718 Active Desmond Diaz DO Active AZITHROMYCIN 250 MG ORAL TABLET 2 po qd x 1 day, then 1 po qd x 4 days 09/20 AZITHROMYCIN 63730216323 Active Desmond Diaz DO Active TOPIRAMATE 50 MG ORAL TABLET take 1 tab po BID for migraines. TOPIRAMATE 42038701365 No Longer Active Desmond Diaz DO Active CYCLOBENZAPRINE HCL 10 MG ORAL TABLET 1 po TID PRN muscle spasm/pain for 10 days CYCLOBENZAPRINE HCL 73835136507 No Longer Active Dsemond Diaz DO Active GUAIFENESIN ER 600 MG ORAL TABLET EXTENDED RELEASE 12 HOUR 1 tab po q am 2016 GUAIFENESIN 71695658354 No Longer Active Robbie Busby MD Active DIVALPROEX SODIUM ER 500 MG ORAL TABLET EXTENDED RELEASE 24 HOUR Once daily DIVALPROEX SODIUM 87482504742 Active Robbie Busby MD Active DEPO-TESTOSTERONE 200 MG/ML INTRAMUSCULAR SOLUTION 1 IM Injections every 2 weeks for low testosterone TESTOSTERONE CYPIONATE 13871099799 Active Zulema Blank LPN Active FLUTICASONE PROPIONATE 50 MCG/ACT NASAL SUSPENSION 2 sprays per nostril bid for 1 week, then 1 spray bid FLUTICASONE PROPIONATE 56662305674 Active Rober Rodríguez APRN Active HYDRALAZINE HCL 25 MG ORAL TABLET Take 1 tab BID. HYDRALAZINE HCL 32967906723 Active Rober Rodríguez APRN Active VITAMIN D3 59019 UNIT ORAL TABLET 2 po weekly CHOLECALCIFEROL 34514345625 Active Robbie Busby MD Active OXYCODONE HCL ER 10 MG ORAL TABLET ER 12 HOUR ABUSE-DETERRENT 1 tab po 3 times qd. OXYCODONE HCL 40775444509 Active Robbie Busby MD Active NITROSTAT 0.4 MG SUBLINGUAL TABLET SUBLINGUAL PRN NITROGLYCERIN 29902030087 No Longer Active Robbie Busby MD Active LORATADINE 10 MG ORAL TABLET 1 tablet by mouth daily for congestion and allergies. LORATADINE 42387747626 No Longer Active Robbie Busby MD Active FLONASE 50 MCG/ACT NASAL SUSPENSION 1 spray each nostril twice daily for allergies and runny nose FLUTICASONE PROPIONATE 12102909294 No Longer Active Robbie Busby MD Active FIORICET 50-300-40 MG ORAL CAPSULE take 1 tab po qday prn migraines. [id number] 98363575676 No Longer Active Robbie Busby MD Active VITAMIN D3 35397 UNIT ORAL CAPSULE 2 CAPS PO WEEKLY CHOLECALCIFEROL 22244879866 No Longer Active Robbie Busby MD Active CYCLOBENZAPRINE HCL 10 MG ORAL TABLET 1 tablet by mouth three times daily as needed for muscle spasm/pain for 10 days CYCLOBENZAPRINE HCL 32675804697 No Longer Active Robbie Busby MD Active PREDNISONE 20 MG ORAL TABLET take 3 tabs daily for 3 days, 2 tabs daily for 3 days, 1 tab daily for 3 days, 1/2 tab daily for 4 days PREDNISONE 45794428386 No Longer Active Erin Garsia APRN Active CLONIDINE HCL 0.2 MG ORAL TABLET 1 TAB BY MOUTH EVERY 8 HOURS CLONIDINE HCL 89367680752 No Longer Active Erin Garsia APRN Active MECLIZINE HCL 25 MG ORAL TABLET one 4 times a day as needed for dizziness MECLIZINE HCL 01654326128 No Longer Active Erin Garsia APRN Active SPIRONOLACTONE 25 MG ORAL TABLET 4 tablets by mouth daily SPIRONOLACTONE 52177561862 No Longer Active Erin Garsia APRN Active LEVAQUIN 500 MG ORAL TABLET 1 tablet by mouth daily for 7 days LEVOFLOXACIN 21812219489 No Longer Active Erin Garsia APRN Active BACTRIM DS 800-160 MG ORAL TABLET 1 tab by mouth twice daily 2015 TRIMETHOPRIM-SULFAMETHOXAZOLE 59561171837 No Longer Active Robbie Busby MD Active HYDRALAZINE HCL 50 MG ORAL TABLET TWO BY MOUTH THREE TIMES DAILY HYDRALAZINE HCL 23736369609 No Longer Active Jillina Frazell [employer]ING METER SERVICER Active HYDROCODONE-ACETAMINOPHEN 5-325 MG ORAL TABLET 1 tab by mouth BID prn back pain HYDROCODONE-ACETAMINOPHEN 38643149017 No Longer Active Jillina Frazell [employer]ARKING METER SERVICER Active HYDROCHLOROTHIAZIDE TABLET Take one by mouth daily HYDROCHLOROTHIAZIDE TABS 36758496335 No Longer Active Jillina Frazell PARKING METER SERVICER Active LAMISIL 125 MG ORAL PACKET 1 TAB PO DAILY TERBINAFINE HCL 12756592422 No Longer Active Jillina Frazell [employer]ARKING METER SERVICER Active TRILEPTAL 150 MG ORAL TABLET 1 TAB PO Q HS OXCARBAZEPINE 24272695718 No Longer Active Jillina Frazell [employer]ARKING METER SERVICER Active BETADINE 10 % EXTERNAL SOLUTION wash with solution to treat follicultis 07/29 POVIDONE-IODINE 69592529062 No Longer Active Jillina Frazell [employer]ARKING METER SERVICER Active NYSTATIN 509381 UNIT/ML MOUTH/THROAT SUSPENSION 5mL po QID x 10 days NYSTATIN 11355754604 No Longer Active Erin Garsia APRN Active PREDNISONE 20 MG ORAL TABLET 1 tablet twice daily for 2 days, then 1 tablet once daily for 2 days PREDNISONE 77052200396 No Longer Active Robbie Busby MD Active CEFDINIR 300 MG ORAL CAPSULE Take 1 cap po bid x 10 days CEFDINIR 90613253541 No Longer Active Robbie Busby MD Active AMLODIPINE BESYLATE 10 MG ORAL TABLET 1 tablet by mouth daily AMLODIPINE BESYLATE 91021482479 Active Robbie Busby MD Active CARVEDILOL 25 MG ORAL TABLET 1 & 1/2 TAB po BID CARVEDILOL 39950348896 Active Robbie Busby MD Active NEXIUM 40 MG ORAL CAPSULE DELAYED RELEASE 1 cap by mouth daily ESOMEPRAZOLE MAGNESIUM 52279967290 Active Robbie Busby MD Active PROTONIX 40 MG INTRAVENOUS SOLUTION RECONSTITUTED 1 po qday for acid reflux PANTOPRAZOLE SODIUM 02727562014 No Longer Active Gali Negro Active KEFLEX 500 MG ORAL CAPSULE 1 po TID x 10 days CEPHALEXIN 51233398305 No Longer Active Robbie Busby MD Active TEMAZEPAM 15 MG ORAL CAPSULE 1 TAB PO Q HS TEMAZEPAM 97041916678 Active Robbie Busby MD Active ALPRAZOLAM 2 MG ORAL TABLET 1 TAB PO BID ALPRAZOLAM 85940428007 Active Robbie Busby MD Active FENOFIBRATE 145 MG ORAL TABLET Take one by mouth daily FENOFIBRATE 98051170900 No Longer Active Robbie Busby MD Active SPIRONOLACTONE 50 MG ORAL TABLET 1 tablet by mouth twice a day SPIRONOLACTONE 55509678048 No Longer Active Robbie Busby MD Active HYDRALAZINE HCL 25 MG ORAL TABLET 1 tablet by mouth tid for hypertension 2013 HYDRALAZINE HCL 14368942630 No Longer Active Robbie Busby MD Active VIIBRYD 40 MG ORAL TABLET take 1 tab po qday for depression. 2014 VILAZODONE HCL 88066543977 No Longer Active Robbie Busby MD Active TERBINAFINE HCL 250 MG ORAL TABLET 1 tab po qday for foot infection TERBINAFINE HCL 98897458688 No Longer Active Robbie Busby MD Active GABAPENTIN 300 MG ORAL CAPSULE 1 po q hs for nerve pain GABAPENTIN 44376798287 Active Robbie Busby MD Active CHERATUSSIN AC 100-10 MG/5ML ORAL SOLUTION 7.5 mL PO q 4-6 hrs PRN cough 2014 GUAIFENESIN-CODEINE 18180007218 No Longer Active Robbie Busby MD Active AZITHROMYCIN 250 MG ORAL TABLET 2 tablets PO today---then, 1 tablet PO daily x 4 more days (and 1 optional refill) AZITHROMYCIN 10155906643 No Longer Active Robbie Busby MD Active NORVASC 10 MG ORAL TABLET 1 tablet by mouth daily AMLODIPINE BESYLATE 10978497029 No Longer Active Alex ALVAREZ Active IMDUR 60 MG ORAL TABLET EXTENDED RELEASE 24 HOUR take 1 tab po qday for blood pressure ISOSORBIDE MONONITRATE 91362651258 Active Robbie Busby MD Active ISOSORBIDE DINITRATE 30 MG ORAL TABLET Take one by mouth daily ISOSORBIDE DINITRATE 12886813607 No Longer Active Robbie Busby MD Active VIIBRYD 40 MG ORAL TABLET 1 TA B PO DAILY VILAZODONE HCL 20590908881 Active Robbie Busby MD Active ZITHROMAX 250 MG ORAL TABLET 2 po today, then 1 po q days 2-5 AZITHROMYCIN 76025046036 No Longer Active Robbie Busby MD Active [id number]-BYP-0 0.3 MG/24HR TRANSDERMAL PATCH WEEKLY apply 2 patches q week for HTN CLONIDINE HCL 66654988611 Active Robbie Busby MD Active DOXAZOSIN MESYLATE 4 MG ORAL TABLET Take one by mouth daily DOXAZOSIN MESYLATE 73032197874 Active Robbie Busby MD Active TOPROL XL 200 MG ORAL TABLET EXTENDED RELEASE 24 HOUR Take one by mouth daily METOPROLOL SUCCINATE 11971118721 Active Robbie Busby MD Active VENLAFAXINE HCL ER 150 MG ORAL TABLET EXTENDED RELEASE 24 HOUR Take one by mouth daily VENLAFAXINE HCL 64170044169 Active Robbie Busby MD Active LIPITOR 40 MG ORAL TABLET Take one by mouth daily ATORVASTATIN CALCIUM 60650777836 Active Robbie Busby MD Active ISOSORBIDE DINITRATE 30 MG ORAL TABLET Take one by mouth daily ISOSORBIDE DINITRATE 30 MG ORAL TABLET 179373 ISOSORBIDE DINITRATE Inactive NORVASC 10 MG ORAL TABLET 1 tablet by mouth daily NORVASC 10 MG ORAL TABLET 115879 AMLODIPINE BESYLATE Inactive AZITHROMYCIN 250 MG ORAL TABLET 2 tablets PO today---then, 1 tablet PO daily x 4 more days (and 1 optional refill) AZITHROMYCIN 250 MG ORAL TABLET 326396 AZITHROMYCIN Inactive CHERATUSSIN AC 100-10 MG/5ML ORAL SOLUTION 7.5 mL PO q 4-6 hrs PRN cough 2014 CHERATUSSIN AC 100-10 MG/5ML ORAL SOLUTION 929454 GUAIFENESIN-CODEINE Inactive VIIBRYD 40 MG ORAL TABLET take 1 tab po qday for depression. 2014 VIIBRYD 40 MG ORAL TABLET VILAZODONE HCL Inactive HYDRALAZINE HCL 25 MG ORAL TABLET 1 tablet by mouth tid for hypertension 2013 HYDRALAZINE HCL 25 MG ORAL TABLET 348928 HYDRALAZINE HCL Inactive SPIRONOLACTONE 50 MG ORAL TABLET 1 tablet by mouth twice a day SPIRONOLACTONE 50 MG ORAL TABLET 844786 SPIRONOLACTONE Inactive FENOFIBRATE 145 MG ORAL TABLET Take one by mouth daily FENOFIBRATE 145 MG ORAL TABLET 921038 FENOFIBRATE Inactive PROTONIX 40 MG INTRAVENOUS SOLUTION RECONSTITUTED 1 po qday for acid reflux PROTONIX 40 MG INTRAVENOUS SOLUTION RECONSTITUTED 917950 PANTOPRAZOLE SODIUM Inactive CEFDINIR 300 MG ORAL CAPSULE Take 1 cap po bid x 10 days CEFDINIR 300 MG ORAL CAPSULE 932485 CEFDINIR Inactive PREDNISONE 20 MG ORAL TABLET 1 tablet twice daily for 2 days, then 1 tablet once daily for 2 days PREDNISONE 20 MG ORAL TABLET 453495 PREDNISONE Inactive NYSTATIN 811267 UNIT/ML MOUTH/THROAT SUSPENSION 5mL po QID x 10 days NYSTATIN 999176 UNIT/ML MOUTH/THROAT SUSPENSION 112540 NYSTATIN Inactive BETADINE 10 % EXTERNAL SOLUTION wash with solution to treat follicultis 07/29 BETADINE 10 % EXTERNAL SOLUTION 3628176 POVIDONE-IODINE Inactive TRILEPTAL 150 MG ORAL TABLET 1 TAB PO Q HS TRILEPTAL 150 MG ORAL TABLET 032119 OXCARBAZEPINE Inactive LAMISIL 125 MG ORAL PACKET 1 TAB PO DAILY LAMISIL 125 MG ORAL PACKET TERBINAFINE HCL Inactive HYDROCHLOROTHIAZIDE TABLET Take one by mouth daily HYDROCHLOROTHIAZIDE TABLET HYDROCHLOROTHIAZIDE TABS Inactive HYDROCODONE-ACETAMINOPHEN 5-325 MG ORAL TABLET 1 tab by mouth BID prn back pain HYDROCODONE-ACETAMINOPHEN 5-325 MG ORAL TABLET 438108 HYDROCODONE-ACETAMINOPHEN Inactive HYDRALAZINE HCL 50 MG ORAL TABLET TWO BY MOUTH THREE TIMES DAILY HYDRALAZINE HCL 50 MG ORAL TABLET 349167 HYDRALAZINE HCL Inactive LEVAQUIN 500 MG ORAL TABLET 1 tablet by mouth daily for 7 days LEVAQUIN 500 MG ORAL TABLET 910030 LEVOFLOXACIN Inactive SPIRONOLACTONE 25 MG ORAL TABLET 4 tablets by mouth daily SPIRONOLACTONE 25 MG ORAL TABLET 068288 SPIRONOLACTONE Inactive MECLIZINE HCL 25 MG ORAL TABLET one 4 times a day as needed for dizziness MECLIZINE HCL 25 MG ORAL TABLET 294473 MECLIZINE HCL Inactive CLONIDINE HCL 0.2 MG ORAL TABLET 1 TAB BY MOUTH EVERY 8 HOURS CLONIDINE HCL 0.2 MG ORAL TABLET 255797 CLONIDINE HCL Inactive CYCLOBENZAPRINE HCL 10 MG ORAL TABLET 1 tablet by mouth three times daily as needed for muscle spasm/pain for 10 days CYCLOBENZAPRINE HCL 10 MG ORAL TABLET 911115 CYCLOBENZAPRINE HCL Inactive VITAMIN D3 58474 UNIT ORAL CAPSULE 2 CAPS PO WEEKLY VITAMIN D3 32978 UNIT ORAL CAPSULE CHOLECALCIFEROL Inactive FIORICET 50-300-40 MG ORAL CAPSULE take 1 tab po qday prn migraines. FIORICET 50-300-40 MG ORAL CAPSULE 188369 BUTALBITAL-APAP- CAFFEINE Inactive FLONASE 50 MCG/ACT NASAL SUSPENSION 1 spray each nostril twice daily for allergies and runny nose FLONASE 50 MCG/ACT NASAL SUSPENSION 7395392 FLUTICASONE PROPIONATE Inactive LORATADINE 10 MG ORAL TABLET 1 tablet by mouth daily for congestion and allergies. LORATADINE 10 MG ORAL TABLET 864455 LORATADINE Inactive NITROSTAT 0.4 MG SUBLINGUAL TABLET SUBLINGUAL PRN NITROSTAT 0.4 MG SUBLINGUAL TABLET SUBLINGUAL 733857 NITROGLYCERIN Inactive GUAIFENESIN ER 600 MG ORAL TABLET EXTENDED RELEASE 12 HOUR 1 tab po q am 2016 GUAIFENESIN ER 600 MG ORAL TABLET EXTENDED RELEASE 12 HOUR GUAIFENESIN Inactive CYCLOBENZAPRINE HCL 10 MG ORAL TABLET 1 po TID PRN muscle spasm/pain for 10 days CYCLOBENZAPRINE HCL 10 MG ORAL TABLET 164906 CYCLOBENZAPRINE HCL Inactive TOPIRAMATE 50 MG ORAL TABLET take 1 tab po BID for migraines. TOPIRAMATE 50 MG ORAL TABLET 896705 TOPIRAMATE Inactive ZITHROMAX 250 MG ORAL TABLET 2 po today, then 1 po q days 2-5 ZITHROMAX 250 MG ORAL TABLET 558154 AZITHROMYCIN Inactive TERBINAFINE HCL 250 MG ORAL TABLET 1 tab po qday for foot infection TERBINAFINE HCL 250 MG ORAL TABLET 859692 TERBINAFINE HCL Inactive KEFLEX 500 MG ORAL CAPSULE 1 po TID x 10 days KEFLEX 500 MG ORAL CAPSULE 796412 CEPHALEXIN Inactive BACTRIM DS 800-160 MG ORAL TABLET 1 tab by mouth twice daily 2015 BACTRIM DS 800-160 MG ORAL TABLET 442794 TRIMETHOPRIM- SULFAMETHOXAZOLE Inactive PREDNISONE 20 MG ORAL TABLET take 3 tabs daily for 3 days, 2 tabs daily for 3 days, 1 tab daily for 3 days, 1/2 tab daily for 4 days PREDNISONE 20 MG ORAL TABLET 594263 PREDNISONE Inactive Advance Directives Directive Description Start [...] AUTO - Chemistry sodium, serum 142 mmol/L 658-434 1791/07/17 carbon dioxide, venous blood 28.2 mmol/L 21.0-32.0 [...] % 11.0-15.0 platelet count 185 THOUSAND/UL 10*3/mm3 833-233 7991/04/14 mean platelet volume 10.9 fL 7.5-12.5 Lab Report: LIPID PANEL, TSH/899, T4, FREE/866 - Chemistry cholesterol, serum 220 mg/dL 897-013 2711/04/14 HDL cholesterol, serum 30 mg/dL > OR=40 [...] 1.80 ng/mL 0.00-4.00 Lab Report: VITAMIN D, 25-HYDROXY/99977 - Chemistry vitamin D 25-hydroxy, serum 25 ng/mL 30-100 Office Visit: Confusion, dizziness after fall - Basic LDL target level 130 mg/dL Office Visit: Confusion, dizziness after fall - Chemistry HDL cholesterol, serum, target level 40 mg/dL triglyceride, target level 150 mg/dL cholesterol, target level 200 mg/dL Encounters Code Encounter Date Provider Facility CPT-55856 Level 4 Est. Patient 15:23:44 ESTIMATING ENGINEER Desmond Diaz DO [facility] CPT-67152 Level 3 Est. Patient 15:40:49 CDT Robbie Busby MD [facility] CPT-42225 Level 4 Est. Patient 15:18:19 CDT Robbie Busby MD [facility] CPT-91967 Level 3 Est. Patient 09:00:37 CDT Rober Rodríguez [facility] CPT-33217 Level 3 Est. Patient 16:07:10 CDT Robbie Busby MD [facility] CPT-14715 Level 4 Est. Patient 11:56:16 CDT Erin Garsia [facility] CPT-76160 Level 3 Est. Patient 17:48:02 CDT Robbie Busby MD [facility] CPT-60131 Level 4 Est. Patient 12:00:49 ESTIMATING ENGINEER Rober Rodríguez [facility] CPT-68569 Level 3 Est. Patient 09:16:37 CDT Robbie Busby MD [facility] CPT-06661 Level 3 Est. Patient 19:38:43 CDT Robbie Busby MD [facility] CPT-89788 Level 3 Est. Patient 11:53:38 CDT Robbie Busby MD [facility] CPT-88933 Level 4 Est. Patient 12:52:22 CDT Rober Rodríguez [facility] CPT-85481 Level 4 Est. Patient 22:55:17 CDT Robbie Busby MD [facility] CPT-63061 Level 3 Est. Patient 12:38:24 CDT Desmond Diaz DO [facility] CPT-09325 Level 4 Est. Patient 11:25:03 ESTIMATING ENGINEER Robbie Busby MD [facility] CPT-47410 Level 4 Est. Patient 14:50:10 CDT Robbie Busby MD [facility] CPT-17383 Level 4 Est. Patient 23:30:43 CDT Robbie Busby MD [facility] CPT-62141 Level 4 Est. Patient 10:30:43 CDT Robbie Busby MD [facility] CPT-90705 Level 3 Est. Patient 17:08:12 CDT Alex ALVAREZ [facility] CPT-03122 Level 4 Est. Patient 17:51:38 CDT Robbie Busby MD [facility] CPT-87562 Level 4 Est. Patient 14:00:21 CDT Robbie Busby MD [facility] CPT-50082 Level 4 Est. Patient 12:46:48 CDT Robbie Busby MD [facility] CPT-79949 Level 4 Est. Patient 13:34:33 CDT Robbie Busby MD [facility] CPT-51525 Level 4 Est. Patient 16:58:28 CDT Robbie Busby MD [facility] CPT-04079 Level 3 Est. Patient 19:36:53 CDT Alex Shaw [facility] CPT-86361 Level 3 Est. Patient 12:58:15 CDT Robbie Busby MD [facility] Procedures Code Procedure Name Date Entry Date Standard Description CPT-J1071 Depo Testosterone 200mg 09:38:36 ESTIMATING ENGINEER CPT-19318 Abx/Therapy Injection 09:38:36 ESTIMATING ENGINEER CPT-J1071 Depo Testosterone 200mg 10:22:56 ESTIMATING ENGINEER CPT-06185 Abx/Therapy Injection 10:22:56 ESTIMATING ENGINEER CPT-J1071 Depo Testosterone 200mg 15:40:23 CDT CPT-50020 Abx/Therapy Injection 15:40:23 CDT CPT-J1071 Depo Testosterone 200mg 14:20:43 CDT CPT-65541 Abx/Therapy Injection 14:20:43 CDT CPT-J1071 Depo Testosterone 200mg 14:17:22 CDT CPT-65611 Abx/Therapy Injection 14:17:22 CDT CPT-J1071 Depo Testosterone 200mg 09:03:53 CDT CPT-31533 Abx/Therapy Injection 09:03:53 CDT CPT-G0439 [facility] Annual Wellness Exam 16:47:44 CDT CPT-J1071 Depo Testosterone 200mg 09:06:28 CDT CPT-77031 Abx/Therapy Injection 09:06:28 CDT CPT-J1071 Depo Testosterone 200mg 08:30:01 CDT CPT-40868 Abx/Therapy Injection 08:30:01 CDT CPT-J1071 Depo Testosterone 200mg 08:24:00 CDT CPT-61156 Abx/Therapy Injection 08:24:00 CDT CPT-56794 Venipuncture Draw Fee 14:39:06 CDT CPT-27036 Ribs unilateral 2V - XRAY USE ONLY 12:10:11 CDT CPT-51201 First Vx - Ix admin for Medicare patients 16:32:53 CDT CPT-62892 Boostrix Intramuscular Suspension 5-2.5-18.5 16:32:53 CDT CPT-07857 TB Skin Test 11:42:28 CDT CPT-57351 Tdap 7yrs or > 11:42:28 CDT CPT-J0696 Rocephin 1000 mg (Ceftriaxone) 17:43:43 ESTIMATING ENGINEER CPT-J1040 Depo Medrol 80 mg (Methyl Prednisolone Acetate) 17:43: 43 ESTIMATING ENGINEER CPT-J1100 Decadron 8mg (Dexamethasone) 17:43:42 ESTIMATING ENGINEER CPT-18281 Abx/Therapy Injection 17:43:42 ESTIMATING ENGINEER CPT-24434 Abx/Therapy Injection 17:43:42 ESTIMATING ENGINEER CPT-J1040 Depo Medrol 80 mg (Methyl Prednisolone Acetate) 09:43: 34 ESTIMATING ENGINEER CPT-J1100 Decadron 8mg (Dexamethasone) 09:43:34 ESTIMATING ENGINEER CPT-J0696 Rocephin 1gm Inj Solr 09:43:34 ESTIMATING ENGINEER CPT-31884 Wound Culture - LAB USE ONLY 14:00:21 CDT CPT-I/D I/D Abscess 09:16:37 CDT CPT-27210 Venipuncture Draw Fee 15:20:23 CDT CPT-34159 Microalbumin - LAB USE ONLY 16:02:19 CDT CPT-53104 CBC - LAB USE ONLY 16:02:19 CDT CPT-74382 Venipuncture Draw Fee 16:02:19 CDT CPT-G0438 Initial Annual Wellness Exam 08:10:28 CDT CPT-83025 Venipuncture Draw Fee 13:07:17 CDT CPT-G0008 Administration of Influenza Virus Vaccine 16:09:59 CDT CPT-52617 Fluzone Quadrivalent Intramuscular Suspension 0.5 ML 16: 09:59 CDT CPT-24804 Spec Collection and Handling Fee 15:05:50 CDT
--- OUTSIDE RECORDS SUMMARY | 2018-04-18 12:07 | XMS REPORT | Clinical Summary ---
Author Author Admin, E Organization [facility] Address Unknown Phone Unavailable [...] unspecified sites URI 465.9 Active Rober Rodríguez CONTENT MANAGEMENT CONSULTANT Acute upper respiratory infections of unspecified site Hypertension 401.9 Active Rober Rodríguez CONTENT MANAGEMENT CONSULTANT Unspecified essential hypertension Sinusitis - acute 461.9 [...] Status Provider Patient Instruction GUAIFENESIN 600 MG [id number] 1 tab po q am GUAIFENESIN 84198915022 No Longer Active Robbie Busby MD Active DIVALPROEX SODIUM ER 500 MG ORAL TABLET EXTENDED RELEASE 24 HOUR Once daily DIVALPROEX SODIUM 95353819081 Active Robbie Busby MD Active DEPO-TESTOSTERONE 200 MG/ML IM SOLN 1 IM Injections every 2 weeks for low testosterone TESTOSTERONE CYPIONATE 17998836554 Active Zulema Blank LPN Active CYCLOBENZAPRINE HCL 10 MG ORAL TABS 1 po TID PRN muscle spasm/pain for 10 days CYCLOBENZAPRINE HCL 04841482862 Active JONATHAN Moncada Active FLUTICASONE PROPIONATE 50 MCG/ACT SUSP 2 sprays per nostril bid for 1 week, then 1 spray bid FLUTICASONE PROPIONATE 39487275775 Active Jillina Anne CONTENT MANAGEMENT CONSULTANT Active HYDRALAZINE HCL 25 MG ORAL TABS Take 1 tab BID. HYDRALAZINE HCL 47248892539 Active Agnieszkaina Anne CONTENT MANAGEMENT CONSULTANT Active VITAMIN D3 74602 UNIT ORAL TABS 2 po weekly CHOLECALCIFEROL 65042274055 Active Robbie Busby MD Active OXYCODONE HCL ER 10 MG ORAL T12A 1 tab po 3 times qd. OXYCODONE HCL 33150957657 Active Robbie Busby MD Active NITROSTAT 0.4 MG SUBL PRN NITROGLYCERIN 63296862198 No Longer Active Robbie Busby MD Active LORATADINE 10 MG TABS 1 tablet by mouth daily for congestion and allergies. LORATADINE 21002215490 No Longer Active Robbie Busby MD Active FLONASE 50 MCG/ACT SUSP 1 spray each nostril twice daily for allergies and runny nose FLUTICASONE PROPIONATE 28173669244 No Longer Active Robbie Busby MD Active FIORICET 50-300-40 MG ORAL CAPS take 1 tab po qday prn migraines. AFRELAYDTB-PXJT-XJHZAZRS 70146885145 No Longer Active Robbie Busby MD Active VITAMIN D3 99044 UNIT CAPS 2 CAPS PO WEEKLY CHOLECALCIFEROL 09469137654 No Longer Active Robbie Busby MD Active CYCLOBENZAPRINE HCL 10 MG TABS 1 tablet by mouth three times daily as needed for muscle spasm/pain for 10 days CYCLOBENZAPRINE HCL 22609401605 No Longer Active Robbie Busby MD Active PREDNISONE 20 MG TAB take 3 tabs daily for 3 days, 2 tabs daily for 3 days, 1 tab daily for 3 days, 1/2 tab daily for 4 days PREDNISONE 32455607598 No Longer Active Erin Garsia APRN Active CLONIDINE HCL 0.2 MG ORAL TABS 1 TAB BY MOUTH EVERY 8 HOURS 12/29 CLONIDINE HCL 03394384482 No Longer Active Erin Garsia APRN Active MECLIZINE HCL 25 MG TAB one 4 times a day as needed for dizziness MECLIZINE HCL 38237634480 No Longer Active Erin Garsia APRN Active SPIRONOLACTONE 25 MG TAB 4 tablets by mouth daily SPIRONOLACTONE 56882271575 No Longer Active Erin Garsia APRN Active LEVAQUIN 500 MG TAB 1 tablet by mouth daily for 7 days LEVOFLOXACIN 38303406021 No Longer Active Erin Garsia APRN Active BACTRIM DS 800-160 MG TAB 1 tab by mouth twice daily TRIMETHOPRIM-SULFAMETHOXAZOLE 21571588673 No Longer Active Robbie Busby MD Active HYDRALAZINE HCL 50 MG ORAL TABS TWO BY MOUTH THREE TIMES DAILY HYDRALAZINE HCL 36798105220 No Longer Active Jillld Rodríguez APRN Active HYDROCODONE-ACETAMINOPHEN 5-325 MG TABS 1 tab by mouth BID prn back pain 2013 HYDROCODONE-ACETAMINOPHEN 00901122504 No Longer Active Jillina Frakierstenl CONTENT MANAGEMENT CONSULTANT Active HYDROCHLOROTHIAZIDE TABS Take one by mouth daily HYDROCHLOROTHIAZIDE TABS 90048805405 No Longer Active Jillina Frazell CONTENT MANAGEMENT CONSULTANT Active LAMISIL 125 MG ORAL PACK 1 TAB PO DAILY TERBINAFINE HCL 80384443957 No Longer Active Jillina Frazell CONTENT MANAGEMENT CONSULTANT Active TRILEPTAL 150 MG ORAL TABS 1 TAB PO Q HS OXCARBAZEPINE 10268198104 No Longer Active Jillina Frakierstenl CONTENT MANAGEMENT CONSULTANT Active BETADINE 10 % EXT SOLN wash with solution to treat follicultis POVIDONE-IODINE 21819049242 No Longer Active Rober oRdríguez APRN Active NYSTATIN 211512 UNIT/ML M/T SUSP 5mL po QID x 10 days NYSTATIN 20465575621 No Longer Active Erin Garsia APRN Active PREDNISONE 20 MG TAB 1 tablet twice daily for 2 days, then 1 tablet once daily for 2 days PREDNISONE 32786300403 No Longer Active Robbie Busby MD Active CEFDINIR 300 MG ORAL CAPS Take 1 cap po bid x 10 days CEFDINIR 72098304849 No Longer Active Robbie Busby MD Active AMLODIPINE BESYLATE 10 MG TABS 1 tablet by mouth daily AMLODIPINE BESYLATE 75204485768 Active Robbie Busby MD Active CARVEDILOL 25 MG TABS 1 & 1/2 TAB po BID CARVEDILOL 61371217977 Active Robbie Busby MD Active NEXIUM 40 MG CPDR 1 cap by mouth daily ESOMEPRAZOLE MAGNESIUM 28493587767 Active Robbie Busby MD Active PROTONIX 40 MG SOLR 1 po qday for acid reflux PANTOPRAZOLE SODIUM 86258874241 No Longer Active Gali Raida Active KEFLEX 500 MG CAP 1 po TID x 10 days CEPHALEXIN 82932124333 No Longer Active Robbie Busby MD Active TOPIRAMATE 50 MG ORAL TABS take 1 tab po BID for migraines. TOPIRAMATE 24153681799 Active Robbie Busby MD Active TEMAZEPAM 15 MG ORAL CAPS 1 TAB PO Q HS TEMAZEPAM 56111933733 Active Robbie Busby MD Active ALPRAZOLAM 2 MG ORAL TABS 1 TAB PO BID ALPRAZOLAM 06125532948 Active Robbei Busby MD Active FENOFIBRATE 145 MG TABS Take one by mouth daily FENOFIBRATE 41453181964 No Longer Active Robbie Busby MD Active SPIRONOLACTONE 50 MG TABS 1 tablet by mouth twice a day SPIRONOLACTONE 51254196379 No Longer Active Robbie Busby MD Active HYDRALAZINE HCL 25 MG TABS 1 tablet by mouth tid for hypertension HYDRALAZINE HCL 89567213914 No Longer Active Robbie Busby MD Active VIIBRYD 40 MG TABS take 1 tab po qday for depression. VILAZODONE HCL 28505356668 No Longer Active Robbie Busby MD Active TERBINAFINE HCL 250 MG TABS 1 tab po qday for foot infection 2014 TERBINAFINE HCL 57691455182 No Longer Active Robbie Busby MD Active GABAPENTIN 300 MG CAPS 1 po q hs for nerve pain GABAPENTIN 69628293869 Active Robbie Busby MD Active CHERATUSSIN AC 100-10 MG/5ML ORAL SOLN 7.5 mL PO q 4-6 hrs PRN cough GUAIFENESIN-CODEINE 95680938030 No Longer Active Robbie Busby MD Active AZITHROMYCIN 250 MG ORAL TABS 2 tablets PO today---then, 1 tablet PO daily x 4 more days (and 1 optional refill) AZITHROMYCIN 94761405864 No Longer Active Robbie Busby MD Active NORVASC 10 MG TAB 1 tablet by mouth daily AMLODIPINE BESYLATE 42701249620 No Longer Active Alex ALVAREZ Active IMDUR 60 MG TAB CR take 1 tab po qday for blood pressure ISOSORBIDE MONONITRATE Active Robbie Busby MD Active ISOSORBIDE DINITRATE 30 MG TABS Take one by mouth daily ISOSORBIDE DINITRATE 36415950770 No Longer Active Robbie Busby MD Active VIIBRYD 40 MG TABS 1 TA B PO DAILY VILAZODONE HCL 85005987125 Active Robbie Busby MD Active ZITHROMAX 250 MG TAB 2 po today, then 1 po q days 2-5 AZITHROMYCIN 66598945573 No Longer Active Robbie Busby MD Active BANTYAYK-MZQ-0 0.3 MG/24HR PTWK apply 2 patches q week for HTN CLONIDINE HCL 92866824219 Active Robbie Busby MD Active DOXAZOSIN MESYLATE 4 MG TABS Take one by mouth daily DOXAZOSIN MESYLATE 91097826459 Active Robbie Busby MD Active TOPROL XL 200 MG MX30C-MDF Take one by mouth daily METOPROLOL SUCCINATE 20571221792 Active Robbie Busby MD Active VENLAFAXINE HCL ER 150 MG ZV26M-ALL Take one by mouth daily VENLAFAXINE HCL 63781761536 Active Robbie Busby MD Active LIPITOR 40 MG TABS Take one by mouth daily ATORVASTATIN CALCIUM 58424845922 Active Robbie Busby MD Active ISOSORBIDE DINITRATE 30 MG TABS Take one by mouth daily ISOSORBIDE DINITRATE 30 MG TABS 902401 ISOSORBIDE DINITRATE Inactive NORVASC 10 MG TAB 1 tablet by mouth daily NORVASC 10 MG TAB 928810 AMLODIPINE BESYLATE Inactive AZITHROMYCIN 250 MG ORAL TABS 2 tablets PO today---then, 1 tablet PO daily x 4 more days (and 1 optional refill) AZITHROMYCIN 250 MG ORAL TABS 930718 AZITHROMYCIN Inactive CHERATUSSIN AC 100-10 MG/5ML ORAL SOLN 7.5 mL PO q 4-6 hrs PRN cough CHERATUSSIN AC 100-10 MG/5ML ORAL SOLN 837736 GUAIFENESIN- CODEINE Inactive VIIBRYD 40 MG TABS take 1 tab po qday for depression. VIIBRYD 40 MG TABS VILAZODONE HCL Inactive HYDRALAZINE HCL 25 MG TABS 1 tablet by mouth tid for hypertension HYDRALAZINE HCL 25 MG TABS 369539 HYDRALAZINE HCL Inactive SPIRONOLACTONE 50 MG TABS 1 tablet by mouth twice a day SPIRONOLACTONE 50 MG TABS 993040 SPIRONOLACTONE Inactive FENOFIBRATE 145 MG TABS Take one by mouth daily FENOFIBRATE 145 MG TABS 895249 FENOFIBRATE Inactive PROTONIX 40 MG SOLR 1 po qday for acid reflux PROTONIX 40 MG SOLR 562089 PANTOPRAZOLE SODIUM Inactive CEFDINIR 300 MG ORAL CAPS Take 1 cap po bid x 10 days CEFDINIR 300 MG ORAL CAPS 008700 CEFDINIR Inactive PREDNISONE 20 MG TAB 1 tablet twice daily for 2 days, then 1 tablet once daily for 2 days PREDNISONE 20 MG TAB 865666 PREDNISONE Inactive NYSTATIN 740201 UNIT/ML M/T SUSP 5mL po QID x 10 days NYSTATIN 592339 UNIT/ML M/T SUSP 431503 NYSTATIN Inactive BETADINE 10 % EXT SOLN wash with solution to treat follicultis BETADINE 10 % EXT SOLN 2227762 POVIDONE-IODINE Inactive TRILEPTAL 150 MG ORAL TABS 1 TAB PO Q HS TRILEPTAL 150 MG ORAL TABS 321462 OXCARBAZEPINE Inactive LAMISIL 125 MG ORAL PACK 1 TAB PO DAILY LAMISIL 125 MG ORAL PACK TERBINAFINE HCL Inactive HYDROCHLOROTHIAZIDE TABS Take one by mouth daily HYDROCHLOROTHIAZIDE TABS HYDROCHLOROTHIAZIDE TABS Inactive HYDROCODONE-ACETAMINOPHEN 5-325 MG TABS 1 tab by mouth BID prn back pain 2013 HYDROCODONE-ACETAMINOPHEN 5-325 MG TABS 690572 HYDROCODONE -ACETAMINOPHEN Inactive HYDRALAZINE HCL 50 MG ORAL TABS TWO BY MOUTH THREE TIMES DAILY HYDRALAZINE HCL 50 MG ORAL TABS 560927 HYDRALAZINE HCL Inactive LEVAQUIN 500 MG TAB 1 tablet by mouth daily for 7 days LEVAQUIN 500 MG TAB 671828 LEVOFLOXACIN Inactive SPIRONOLACTONE 25 MG TAB 4 tablets by mouth daily SPIRONOLACTONE 25 MG TAB 610307 SPIRONOLACTONE Inactive MECLIZINE HCL 25 MG TAB one 4 times a day as needed for dizziness MECLIZINE HCL 25 MG TAB 068457 MECLIZINE HCL Inactive CLONIDINE HCL 0.2 MG ORAL TABS 1 TAB BY MOUTH EVERY 8 HOURS 12/29 CLONIDINE HCL 0.2 MG ORAL TABS 844928 CLONIDINE HCL Inactive CYCLOBENZAPRINE HCL 10 MG TABS 1 tablet by mouth three times daily as needed for muscle spasm/pain for 10 days CYCLOBENZAPRINE HCL 10 MG TABS 108810 CYCLOBENZAPRINE HCL Inactive VITAMIN D3 47051 UNIT CAPS 2 CAPS PO WEEKLY VITAMIN D3 53763 UNIT CAPS CHOLECALCIFEROL Inactive FIORICET 50-300-40 MG ORAL CAPS take 1 tab po qday prn migraines. FIORICET 50-300-40 MG ORAL CAPS 357223 [id number] Inactive FLONASE 50 MCG/ACT SUSP 1 spray each nostril twice daily for allergies and runny nose FLONASE 50 MCG/ACT SUSP 0731728 FLUTICASONE PROPIONATE Inactive LORATADINE 10 MG TABS 1 tablet by mouth daily for congestion and allergies. LORATADINE 10 MG TABS 529296 LORATADINE Inactive NITROSTAT 0.4 MG SUBL PRN NITROSTAT 0.4 MG SUBL 400234 NITROGLYCERIN Inactive GUAIFENESIN 600 MG [id number] 1 tab po q am GUAIFENESIN 600 MG [id number] GUAIFENESIN Inactive ZITHROMAX 250 MG TAB 2 po today, then 1 po q days 2-5 ZITHROMAX 250 MG TAB 405919 AZITHROMYCIN Inactive TERBINAFINE HCL 250 MG TABS 1 tab po qday for foot infection 2014 TERBINAFINE HCL 250 MG TABS 437663 TERBINAFINE HCL Inactive KEFLEX 500 MG CAP 1 po TID x 10 days KEFLEX 500 MG CAP 651053 CEPHALEXIN Inactive BACTRIM DS 800-160 MG TAB 1 tab by mouth twice daily BACTRIM DS 800-160 MG TAB 359143 TRIMETHOPRIM-SULFAMETHOXAZOLE Inactive PREDNISONE 20 MG TAB take 3 tabs daily for 3 days, 2 tabs daily for 3 days, 1 tab daily for 3 days, 1/2 tab daily for 4 days PREDNISONE 20 MG TAB 560120 PREDNISONE Inactive Advance Directives Directive Description Start [...] AUTO - Chemistry sodium, serum 142 mmol/L 301-626 1208/07/17 carbon dioxide, venous blood 28.2 mmol/L 21.0-32.0 [...] % 11.0-15.0 platelet count 185 THOUSAND/UL 10*3/mm3 096-471 9616/04/14 mean platelet volume 10.9 fL 7.5-12.5 Lab Report: LIPID PANEL, TSH/899, T4, FREE/866 - Chemistry cholesterol, serum 220 mg/dL 281-866 5445/04/14 HDL cholesterol, serum 30 mg/dL > OR=40 [...] 1.80 ng/mL 0.00-4.00 Lab Report: VITAMIN D, 25-HYDROXY/16742 - Chemistry vitamin D 25-hydroxy, serum 25 ng/mL 30-100 Office Visit: Confusion, dizziness after fall - Basic LDL target level 130 mg/dL Office Visit: Confusion, dizziness after fall - Chemistry HDL cholesterol, serum, target level 40 mg/dL triglyceride, target level 150 mg/dL cholesterol, target level 200 mg/dL Encounters Code Encounter Date Provider Facility CPT-86758 Level 3 Est. Patient 15:40:49 CDT Robbie Busby MD [facility] CPT-96495 Level 4 Est. Patient 15:18:19 CDT Robbie Busby MD [facility] CPT-00474 Level 3 Est. Patient 09:00:37 CDT Rober Rodríguez [facility] CPT-62559 Level 3 Est. Patient 16:07:10 CDT Robbie Busby MD [facility] CPT-04043 Level 4 Est. Patient 11:56:16 CDT Erin Garsia [facility] CPT-29076 Level 3 Est. Patient 17:48:02 CDT Robbie Busby MD [facility] CPT-33934 Level 4 Est. Patient 12:00:49 SITE PROMOTION AGENT Rober Rodríguez [facility] CPT-70479 Level 3 Est. Patient 09:16:37 CDT Robbie Busby MD [facility] CPT-01466 Level 3 Est. Patient 19:38:43 CDT Robbie Busby MD [facility] CPT-03694 Level 3 Est. Patient 11:53:38 CDT Robbie Busby MD [facility]-29568 Level 4 Est. Patient 12:52:22 CDT Rober Rodríguez APRN [facility] CPT-10567 Level 4 Est. Patient 22:55:17 CDT Robbie Busby MD [facility]-01018 Level 3 Est. Patient 12:38:24 CDT Desmond Diaz DO [facility] CPT-06519 Level 4 Est. Patient 11:25:03 SITE PROMOTION AGENT Robbie Busby MD [facility]-87058 Level 4 Est. Patient 14:50:10 CDT Robbie Busby MD [facility]-04182 Level 4 Est. Patient 23:30:43 CDT Robbie Busby MD [facility] CPT-69778 Level 4 Est. Patient 10:30:43 CDT Robbie Busby MD [facility]-91662 Level 3 Est. Patient 17:08:12 CDT Alex ALVAREZ [facility] CPT-09889 Level 4 Est. Patient 17:51:38 CDT Robbie Busby MD [facility] CPT-86906 Level 4 Est. Patient 14:00:21 CDT Robbie Busby MD [facility] CPT-30115 Level 4 Est. Patient 12:46:48 CDT Robbie Busby MD [facility]-24917 Level 4 Est. Patient 13:34:33 CDT Robbie Busby MD [facility]-41622 Level 4 Est. Patient 16:58:28 CDT Robbie Busby MD [facility]-00803 Level 3 Est. Patient 19:36:53 CDT Alex ALVAREZ [facility] CPT-04716 Level 3 Est. Patient 12:58:15 CDT Robbie Busby MD [facility] Procedures Code Procedure Name Date Entry Date Standard Description CPT-J1071 Depo Testosterone 200mg 14:20:43 CDT CPT-80737 Abx/Therapy Injection 14:20:43 CDT CPT-J1071 Depo Testosterone 200mg 14:17:22 CDT CPT-83893 Abx/Therapy Injection 14:17:22 CDT CPT-J1071 Depo Testosterone 200mg 09:03:53 CDT CPT-42436 Abx/Therapy Injection 09:03:53 CDT CPT-G0439 [facility] Annual Wellness Exam 16:47:44 CDT CPT-J1071 Depo Testosterone 200mg 09:06:28 CDT CPT-54856 Abx/Therapy Injection 09:06:28 CDT CPT-J1071 Depo Testosterone 200mg 08:30:01 CDT CPT-21285 Abx/Therapy Injection 08:30:01 CDT CPT-J1071 Depo Testosterone 200mg 08:24:00 CDT CPT-25304 Abx/Therapy Injection 08:24:00 CDT CPT-94736 Venipuncture Draw Fee 14:39:06 CDT CPT-23194 Ribs unilateral 2V - XRAY USE ONLY 12:10:11 CDT CPT-32045 First Vx - Ix admin for Medicare patients 16:32:53 CDT CPT-66587 Boostrix Intramuscular Suspension 5-2.5-18.5 16:32:53 CDT CPT-13208 TB Skin Test 11:42:28 CDT CPT-13824 Tdap 7yrs or > 11:42:28 CDT CPT-J0696 Rocephin 1000 mg (Ceftriaxone) 17:43:43 SITE PROMOTION AGENT CPT-J1040 Depo Medrol 80 mg (Methyl Prednisolone Acetate) 17:43: 43 SITE PROMOTION AGENT CPT-J1100 Decadron 8mg (Dexamethasone) 17:43:42 SITE PROMOTION AGENT CPT-36994 Abx/Therapy Injection 17:43:42 SITE PROMOTION AGENT CPT-10935 Abx/Therapy Injection 17:43:42 SITE PROMOTION AGENT CPT-J1040 Depo Medrol 80 mg (Methyl Prednisolone Acetate) 09:43: 34 SITE PROMOTION AGENT CPT-J1100 Decadron 8mg (Dexamethasone) 09:43:34 SITE PROMOTION AGENT CPT-J0696 Rocephin 1gm Inj Solr 09:43:34 SITE PROMOTION AGENT CPT-15637 Wound Culture - LAB USE ONLY 14:00:21 CDT CPT-I/D I/D Abscess 09:16:37 CDT CPT-04050 Venipuncture Draw Fee 15:20:23 CDT CPT-65975 Microalbumin - LAB USE ONLY 16:02:19 CDT CPT-67249 CBC - LAB USE ONLY 16:02:19 CDT CPT-39092 Venipuncture Draw Fee 16:02:19 CDT CPT-G0438 Initial Annual Wellness Exam 08:10:28 CDT CPT-89393 Venipuncture Draw Fee 13:07:17 CDT CPT-G0008 Administration of Influenza Virus Vaccine 16:09:59 CDT CPT-01022 Fluzone Quadrivalent Intramuscular Suspension 0.5 ML 16: 09:59 CDT CPT-25706 Spec Collection and Handling Fee 15:05:50 CDT
--- OUTSIDE RECORDS SUMMARY | 2018-04-18 12:08 | XMS REPORT | Clinical Summary ---
Author Author Admin, AKUA Organization [employer] Address Unknown Phone Unavailable Allergies, Adverse Reactions, [...] Active Robbie Busby MD Myocardial Infarction: Active Robibe Busby MD Acute myocardial infarction, unspecified site, [...] 1 tab by mouth twice daily TRIMETHOPRIM-SULFAMETHOXAZOLE 15322044921 No Longer Active Robbie Busby MD Active SPIRONOLACTONE 25 MG TAB 4 tablets by mouth daily SPIRONOLACTONE 02481478216 Active Robbie Busby MD Active HYDRALAZINE HCL 50 MG ORAL TABS TWO BY MOUTH THREE TIMES DAILY HYDRALAZINE HCL 44837764280 No Longer Active Jillina Frazell PRIMARY CLINICIAN Active HYDROCODONE-ACETAMINOPHEN 5-325 MG TABS 1 tab by mouth BID prn back pain 2013 HYDROCODONE-ACETAMINOPHEN 14081653709 No Longer Active Jillina Frazell PRIMARY CLINICIAN Active HYDROCHLOROTHIAZIDE TABS Take one by mouth daily HYDROCHLOROTHIAZIDE TABS 19318043047 No Longer Active Jillina Frazell PRIMARY CLINICIAN Active LAMISIL 125 MG ORAL PACK 1 TAB PO DAILY TERBINAFINE HCL 96325660833 No Longer Active Jillina Frazell PRIMARY CLINICIAN Active TRILEPTAL 150 MG ORAL TABS 1 TAB PO Q HS OXCARBAZEPINE 97621017472 No Longer Active Jillina Frazell PRIMARY CLINICIAN Active BETADINE 10 % EXT SOLN wash with solution to treat follicultis POVIDONE-IODINE 41579229047 No Longer Active Jillina Frazell PRIMARY CLINICIAN Active NYSTATIN 897081 UNIT/ML M/T SUSP 5mL po QID x 10 days NYSTATIN 12340176616 No Longer Active Erin Garsia APRN Active PREDNISONE 20 MG TAB 1 tablet twice daily for 2 days, then 1 tablet once daily for 2 days PREDNISONE 94173197049 No Longer Active Robbie Busby MD Active CEFDINIR 300 MG ORAL CAPS Take 1 cap po bid x 10 days CEFDINIR 99213221786 No Longer Active Robbie Busby MD Active AMLODIPINE BESYLATE 10 MG TABS 1 tablet by mouth daily AMLODIPINE BESYLATE 93809191788 Active Robbie Busby MD Active CARVEDILOL 25 MG TABS 1 & 1/2 TAB po BID CARVEDILOL 52486953386 Active Erin Garsia APRN Active VITAMIN D3 28708 UNIT CAPS 2 CAPS PO WEEKLY CHOLECALCIFEROL 54047404365 Active Erin Garsia APRN Active NEXIUM 40 MG CPDR 1 cap by mouth daily ESOMEPRAZOLE MAGNESIUM 58466147779 Active Gali Negro Active PROTONIX 40 MG SOLR 1 po qday for acid reflux PANTOPRAZOLE SODIUM 64166994783 No Longer Active Gali Negro Active KEFLEX 500 MG CAP 1 po TID x 10 days CEPHALEXIN 54282380808 No Longer Active Robbie Busby MD Active FIORICET 50-300-40 MG ORAL CAPS take 1 tab po qday prn migraines. [id number]-[id number] 11075132299 Active Robbie Busby MD Active TOPIRAMATE 50 MG ORAL TABS take 1 tab po BID for migraines. TOPIRAMATE 16561858918 Active Robbie Busby MD Active MECLIZINE HCL 25 MG TAB one 4 times a day as needed for dizziness MECLIZINE HCL 22989926639 Active Robbie Busby MD Active TEMAZEPAM 15 MG ORAL CAPS 1 TAB PO Q HS TEMAZEPAM 28030407659 Active Robbie Busby MD Active ALPRAZOLAM 2 MG ORAL TABS 1 TAB PO BID ALPRAZOLAM 02506100952 Active Robbie Busby MD Active FENOFIBRATE 145 MG TABS Take one by mouth daily FENOFIBRATE 48148939421 No Longer Active Robbie Busby MD Active SPIRONOLACTONE 50 MG TABS 1 tablet by mouth twice a day SPIRONOLACTONE 50543410926 No Longer Active Robbie Busby MD Active HYDRALAZINE HCL 25 MG TABS 1 tablet by mouth tid for hypertension HYDRALAZINE HCL 19191535804 No Longer Active Robbie Busby MD Active VIIBRYD 40 MG TABS take 1 tab po qday for depression. VILAZODONE HCL 80865969907 No Longer Active Robbie Busby MD Active TERBINAFINE HCL 250 MG TABS 1 tab po qday for foot infection 2014 TERBINAFINE HCL 08426892096 No Longer Active Robbie Busby MD Active GABAPENTIN 300 MG CAPS 1 po q hs for nerve pain GABAPENTIN 02490734980 Active Robbie Busby MD Active FLONASE 50 MCG/ACT SUSP 1 spray each nostril twice daily for allergies and runny nose FLUTICASONE PROPIONATE 34987015535 Active Robbie Busby MD Active CHERATUSSIN AC 100-10 MG/5ML ORAL SOLN 7.5 mL PO q 4-6 hrs PRN cough GUAIFENESIN-CODEINE 95687664092 No Longer Active Robbie Busby MD Active AZITHROMYCIN 250 MG ORAL TABS 2 tablets PO today---then, 1 tablet PO daily x 4 more days (and 1 optional refill) AZITHROMYCIN 62342140924 No Longer Active Robbie Busby MD Active CLONIDINE HCL 0.2 MG ORAL TABS 1 TAB BY MOUTH EVERY 8 HOURS CLONIDINE HCL 60987458242 Active Erin Garsia APRN Active NORVASC 10 MG TAB 1 tablet by mouth daily AMLODIPINE BESYLATE 05197619242 No Longer Active Alex ALVAREZ Active IMDUR 60 MG TAB CR take 1 tab po qday for blood pressure ISOSORBIDE MONONITRATE Active Robbie Busby MD Active ISOSORBIDE DINITRATE 30 MG TABS Take one by mouth daily ISOSORBIDE DINITRATE 15046646443 No Longer Active Robbie Busby MD Active VIIBRYD 40 MG TABS 1 TA B PO DAILY VILAZODONE HCL 81781296918 Active Robbie Busby MD Active LORATADINE 10 MG TABS 1 tablet by mouth daily for congestion and allergies. LORATADINE 16791417315 Active Robbie Busby MD Active ZITHROMAX 250 MG TAB 2 po today, then 1 po q days 2-5 AZITHROMYCIN 47833155597 No Longer Active Robbie Busby MD Active [id number]-[id number]-4 0.3 MG/24HR PTWK apply 2 patches q week for HTN CLONIDINE HCL 69768712701 Active Robbie Busby MD Active NITROSTAT 0.4 MG SUBL PRN NITROGLYCERIN 29978442712 Active Robbie Busby MD Active DOXAZOSIN MESYLATE 4 MG TABS Take one by mouth daily DOXAZOSIN MESYLATE 47717832754 Active Robbie Busby MD Active TOPROL XL 200 MG [id number]-VDT Take one by mouth daily METOPROLOL SUCCINATE 04534810402 Active Robbie Busby MD Active VENLAFAXINE HCL ER 150 MG [id number] Take one by mouth daily VENLAFAXINE HCL 07954699929 Active Robbie Busby MD Active LIPITOR 40 MG TABS Take one by mouth daily ATORVASTATIN CALCIUM 26397581534 Active Robbie Busby MD Active ISOSORBIDE DINITRATE 30 MG TABS Take one by mouth daily ISOSORBIDE DINITRATE 30 MG TABS 996102 ISOSORBIDE DINITRATE Inactive NORVASC 10 MG TAB 1 tablet by mouth daily NORVASC 10 MG TAB 607653 AMLODIPINE BESYLATE Inactive AZITHROMYCIN 250 MG ORAL TABS 2 tablets PO today---then, 1 tablet PO daily x 4 more days (and 1 optional refill) AZITHROMYCIN 250 MG ORAL TABS 7584430 AZITHROMYCIN Inactive CHERATUSSIN AC 100-10 MG/5ML ORAL SOLN 7.5 mL PO q 4-6 hrs PRN cough CHERATUSSIN AC 100-10 MG/5ML ORAL SOLN 300823 GUAIFENESIN- CODEINE Inactive VIIBRYD 40 MG TABS take 1 tab po qday for depression. VIIBRYD 40 MG TABS VILAZODONE HCL Inactive HYDRALAZINE HCL 25 MG TABS 1 tablet by mouth tid for hypertension HYDRALAZINE HCL 25 MG TABS 214670 HYDRALAZINE HCL Inactive SPIRONOLACTONE 50 MG TABS 1 tablet by mouth twice a day SPIRONOLACTONE 50 MG TABS 907925 SPIRONOLACTONE Inactive FENOFIBRATE 145 MG TABS Take one by mouth daily FENOFIBRATE 145 MG TABS 054870 FENOFIBRATE Inactive PROTONIX 40 MG SOLR 1 po qday for acid reflux PROTONIX 40 MG SOLR 052135 PANTOPRAZOLE SODIUM Inactive CEFDINIR 300 MG ORAL CAPS Take 1 cap po bid x 10 days CEFDINIR 300 MG ORAL CAPS 206202 CEFDINIR Inactive PREDNISONE 20 MG TAB 1 tablet twice daily for 2 days, then 1 tablet once daily for 2 days PREDNISONE 20 MG TAB 200048 PREDNISONE Inactive NYSTATIN 969626 UNIT/ML M/T SUSP 5mL po QID x 10 days NYSTATIN 910981 UNIT/ML M/T SUSP 294634 NYSTATIN Inactive BETADINE 10 % EXT SOLN wash with solution to treat follicultis BETADINE 10 % EXT SOLN 4199535 POVIDONE-IODINE Inactive TRILEPTAL 150 MG ORAL TABS 1 TAB PO Q HS TRILEPTAL 150 MG ORAL TABS 735245 OXCARBAZEPINE Inactive LAMISIL 125 MG ORAL PACK 1 TAB PO DAILY LAMISIL 125 MG ORAL PACK TERBINAFINE HCL Inactive HYDROCHLOROTHIAZIDE TABS Take one by mouth daily HYDROCHLOROTHIAZIDE TABS HYDROCHLOROTHIAZIDE TABS Inactive HYDROCODONE-ACETAMINOPHEN 5-325 MG TABS 1 tab by mouth BID prn back pain 2013 HYDROCODONE-ACETAMINOPHEN 5-325 MG TABS 294424 HYDROCODONE -ACETAMINOPHEN Inactive HYDRALAZINE HCL 50 MG ORAL TABS TWO BY MOUTH THREE TIMES DAILY HYDRALAZINE HCL 50 MG ORAL TABS 719051 HYDRALAZINE HCL Inactive ZITHROMAX 250 MG TAB 2 po today, then 1 po q days 2-5 ZITHROMAX 250 MG TAB 7052967 AZITHROMYCIN Inactive TERBINAFINE HCL 250 MG TABS 1 tab po qday for foot infection 2014 TERBINAFINE HCL 250 MG TABS 398036 TERBINAFINE HCL Inactive KEFLEX 500 MG CAP 1 po TID x 10 days KEFLEX 500 MG CAP 491289 CEPHALEXIN Inactive BACTRIM DS 800-160 MG TAB 1 tab by mouth twice daily BACTRIM DS 800-160 MG TAB 041790 TRIMETHOPRIM-SULFAMETHOXAZOLE Inactive Advance Directives Directive Description Start [...] Acid - Chemistry sodium, serum 139 mmol/L 382-344 6288/04/22 carbon dioxide, venous blood 29.4 mmol/L 21.0-32.0 [...] to Follow Negative Lab Report: VITAMIN D, 25-HYDROXY/47400 - Chemistry vitamin D 25-hydroxy, serum 23 ng/mL 30-100 Encounters Code Encounter Date Provider Facility [facility]-[id number] Level 3 Est. Patient 09:16:37 CDT Robbie Busyb MD [facility]-81566 Level 3 Est. Patient 19:38:43 CDT Robbie Busby MD [facility]-15509 Level 3 Est. Patient 11:53:38 CDT Robbie Busby MD [facility]-65155 Level 4 Est. Patient 12:52:22 CDT Rober Rodríguez APRN [facility]-61261 Level 4 Est. Patient 22:55:17 CDT Robbie Busby MD [facility]-88051 Level 3 Est. Patient 12:38:24 CDT Desmond Diaz DO [facility]-11049 Level 4 Est. Patient 11:25:03 [employer] Robbie Busby MD [facility] CPT-45797 Level 4 Est. Patient 14:50:10 CDT Robbie Busby MD [facility] CPT-24000 Level 4 Est. Patient 23:30:43 CDT Robbie Busby MD [facility]-28214 Level 4 Est. Patient 10:30:43 CDT Robbie Busby MD [facility] CPT-25054 Level 3 Est. Patient 17:08:12 CDT Alex ALVAREZ [facility]-46974 Level 4 Est. Patient 17:51:38 CDT Robbie Busby MD [facility]-19144 Level 4 Est. Patient 14:00:21 CDT Robbie Busby MD [facility]-55592 Level 4 Est. Patient 12:46:48 CDT Robbie Busby MD [facility] CPT-63007 Level 4 Est. Patient 13:34:33 CDT Robbie Busby MD [facility] CPT-16429 Level 4 Est. Patient 16:58:28 CDT Robbie Busby MD [facility] CPT-58058 Level 3 Est. Patient 19:36:53 CDT Alex ALVAREZ [facility] CPT-96844 Level 3 Est. Patient 12:58:15 CDT Robbie Busby MD [facility] Procedures Code Procedure Name Date Entry Date Standard Description CPT-57379 Wound Culture - LAB USE ONLY 14:00:21 CDT CPT-I/D I/D Abscess 09:16:37 CDT CPT-73778 Venipuncture Draw Fee 15:20:23 CDT CPT-72289 Microalbumin - LAB USE ONLY 16:02:19 CDT CPT-77844 CBC - LAB USE ONLY 16:02:19 CDT CPT-61608 Venipuncture Draw Fee 16:02:19 CDT CPT-G0438 Initial Annual Wellness Exam 08:10:28 CDT CPT-68882 Venipuncture Draw Fee 13:07:17 CDT CPT-G0008 Administration of Influenza Virus Vaccine 16:09:59 CDT CPT-97952 Fluzone Quadrivalent Intramuscular Suspension 0.5 ML 16: 09:59 CDT CPT-35145 Spec Collection and Handling Fee 15:05:50 CDT
--- OUTSIDE RECORDS SUMMARY | 2018-04-18 12:08 | XMS REPORT | Clinical Summary ---
Author Author Admin, AKUA Organization [facility] Address Unknown Phone Unavailable Allergies, Adverse Reactions, [...] day as needed for dizziness MECLIZINE HCL 30005833122 Active Robbie Busby MD Active TRILEPTAL 150 MG ORAL TABS 1 TAB PO Q HS OXCARBAZEPINE 61270312184 Active Robbie Busby MD Active TEMAZEPAM 15 MG ORAL CAPS 1 TAB PO Q HS TEMAZEPAM 60315834590 Active Robbie Busby MD Active ALPRAZOLAM 2 MG ORAL TABS 1 TAB PO BID ALPRAZOLAM 40759575933 Active Robbie Busby MD Active FENOFIBRATE 145 MG TABS Take one by mouth daily FENOFIBRATE 55431822065 No Longer Active Robbie Busby MD Active LAMISIL 125 MG ORAL PACK 1 TAB PO DAILY TERBINAFINE HCL 70724675643 Active Robbie Busby MD Active SPIRONOLACTONE 50 MG TABS 1 tablet by mouth twice a day SPIRONOLACTONE 35913222187 No Longer Active Robbie Busby MD Active HYDRALAZINE HCL 25 MG TABS 1 tablet by mouth tid for hypertension HYDRALAZINE HCL 46101442625 No Longer Active Robbie Busby MD Active VIIBRYD 40 MG TABS take 1 tab po qday for depression. VILAZODONE HCL 30869250917 No Longer Active Robbie Busby MD Active TERBINAFINE HCL 250 MG TABS 1 tab po qday for foot infection 2014 TERBINAFINE HCL 34326817721 No Longer Active Robbie Busby MD Active GABAPENTIN 300 MG CAPS 1 po q hs for nerve pain GABAPENTIN 05380890654 Active Robbie Busby MD Active FLONASE 50 MCG/ACT SUSP 1 spray each nostril twice daily for allergies and runny nose FLUTICASONE PROPIONATE 81726610669 Active Robbie Busby MD Active CHERATUSSIN AC 100-10 MG/5ML ORAL SOLN 7.5 mL PO q 4-6 hrs PRN cough GUAIFENESIN-CODEINE 09770897377 No Longer Active Robbie Busby MD Active AZITHROMYCIN 250 MG ORAL TABS 2 tablets PO today---then, 1 tablet PO daily x 4 more days (and 1 optional refill) AZITHROMYCIN 86934792929 No Longer Active Robbie Busby MD Active CLONIDINE HCL 0.2 MG ORAL TABS 1 TAB BY MOUTH EVERY 8 HOURS CLONIDINE HCL 39324641592 Active Robbie Busby MD Active HYDROCHLOROTHIAZIDE TABS Take one by mouth daily HYDROCHLOROTHIAZIDE TABS 77945954269 Active Alex ALVAREZ Active NORVASC 10 MG TAB 1 tablet by mouth daily AMLODIPINE BESYLATE 28654198316 No Longer Active Alex ALVAREZ Active PROTONIX 40 MG SOLR 1 po qday for acid reflux PANTOPRAZOLE SODIUM 10007503360 Active Robbie Busby MD Active IMDUR 60 MG TAB CR take 1 tab po qday for blood pressure ISOSORBIDE MONONITRATE Active Robbie Busby MD Active ISOSORBIDE DINITRATE 30 MG TABS Take one by mouth daily ISOSORBIDE DINITRATE 96754078087 No Longer Active Robbie Busby MD Active VIIBRYD 40 MG TABS 1 TA B PO DAILY VILAZODONE HCL 05982056319 Active Robbie Busby MD Active LORATADINE 10 MG TABS 1 tablet by mouth daily for congestion and allergies. LORATADINE 69960825298 Active Robbie Busby MD Active ZITHROMAX 250 MG TAB 2 po today, then 1 po q days 2-5 AZITHROMYCIN 22248048943 No Longer Active Robbie Busby MD Active HYDROCODONE-ACETAMINOPHEN 5-325 MG TABS 1 tab by mouth BID prn back pain 2013 HYDROCODONE-ACETAMINOPHEN 66729962856 Active Robbie Busby MD Active HYDRALAZINE HCL 50 MG TABS take 1 tab po QID for high blood pressure HYDRALAZINE HCL 24390023013 Active Robbie Busby MD Active UMCDZRYQ-DCM-4 0.3 MG/24HR PTWK apply 2 patches q week for HTN CLONIDINE HCL 89887340583 Active Robbie Busby MD Active NITROSTAT 0.4 MG SUBL PRN NITROGLYCERIN 85923720999 Active Robbie Busby MD Active DOXAZOSIN MESYLATE 4 MG TABS Take one by mouth daily DOXAZOSIN MESYLATE 00193451166 Active Robbie Busby MD Active TOPROL XL 200 MG MA60Y-AWO Take one by mouth daily METOPROLOL SUCCINATE 48021428158 Active Robbie Busby MD Active VENLAFAXINE HCL ER 150 MG LI05I-XGK Take one by mouth daily VENLAFAXINE HCL 19487541161 Active Robbie Busby MD Active LIPITOR 40 MG TABS Take one by mouth daily ATORVASTATIN CALCIUM 02937326987 Active Robbie Busby MD Active ISOSORBIDE DINITRATE 30 MG TABS Take one by mouth daily ISOSORBIDE DINITRATE 30 MG TABS 775059 ISOSORBIDE DINITRATE Inactive NORVASC 10 MG TAB 1 tablet by mouth daily NORVASC 10 MG TAB 954909 AMLODIPINE BESYLATE Inactive AZITHROMYCIN 250 MG ORAL TABS 2 tablets PO today---then, 1 tablet PO daily x 4 more days (and 1 optional refill) AZITHROMYCIN 250 MG ORAL TABS 0125463 AZITHROMYCIN Inactive CHERATUSSIN AC 100-10 MG/5ML ORAL SOLN 7.5 mL PO q 4-6 hrs PRN cough CHERATUSSIN AC 100-10 MG/5ML ORAL SOLN 388709 GUAIFENESIN- CODEINE Inactive VIIBRYD 40 MG TABS take 1 tab po qday for depression. VIIBRYD 40 MG TABS VILAZODONE HCL Inactive HYDRALAZINE HCL 25 MG TABS 1 tablet by mouth tid for hypertension HYDRALAZINE HCL 25 MG TABS 850294 HYDRALAZINE HCL Inactive SPIRONOLACTONE 50 MG TABS 1 tablet by mouth twice a day SPIRONOLACTONE 50 MG TABS 190065 SPIRONOLACTONE Inactive FENOFIBRATE 145 MG TABS Take one by mouth daily FENOFIBRATE 145 MG TABS 477666 FENOFIBRATE Inactive ZITHROMAX 250 MG TAB 2 po today, then 1 po q days 2-5 ZITHROMAX 250 MG TAB 6206445 AZITHROMYCIN Inactive TERBINAFINE HCL 250 MG TABS 1 tab po qday for foot infection 2014 TERBINAFINE HCL 250 MG TABS 643869 TERBINAFINE HCL Inactive Vital Signs Date Name [...] Panel - Chemistry sodium, serum 141 mmol/L 430-332 7559/12/05 potassium, serum 4.0 mmol/L 3.5-5.2 chloride, serum [...] 0.60-1.30 Encounters Code Encounter Date Provider Facility CPT-71693 Level 4 Est. Patient 14:50:10 CDT Robbie Busby MD [facility] CPT-93006 Level 4 Est. Patient 23:30:43 CDT Robbie Busby MD [facility] CPT-22825 Level 4 Est. Patient 10:30:43 CDT Robbie Busby MD [facility] CPT-09405 Level 3 Est. Patient 17:08:12 CDT Alex Shaw [facility] CPT-10171 Level 4 Est. Patient 17:51:38 CDT Robbie Busby MD [facility] CPT-07959 Level 4 Est. Patient 14:00:21 CDT Robbie Busby MD [facility] CPT-41498 Level 4 Est. Patient 12:46:48 CDT Robbie Busby MD [facility] CPT-82326 Level 4 Est. Patient 13:34:33 CDT Robbie Busby MD [facility] CPT-40028 Level 4 Est. Patient 16:58:28 CDT Robbie Busby MD [facility] CPT-41315 Level 3 Est. Patient 19:36:53 CDT Alex ALVAREZ [facility] CPT-85627 Level 3 Est. Patient 12:58:15 CDT Robbie Busby MD [facility] Procedures Code Procedure Name Date Entry Date Standard Description CPT-G0008 Administration of Influenza Virus Vaccine 16:09:59 CDT CPT-19255 Fluzone Quadrivalent Intramuscular Suspension 0.5 ML 16: 09:59 CDT CPT-38660 Spec Collection and Handling Fee 15:05:50 CDT
--- OUTSIDE RECORDS SUMMARY | 2018-04-18 12:10 | XMS REPORT | Clinical Summary ---
Author Author Admin, E Organization [facility] Address Unknown Phone Unavailable Allergies, Adverse Reactions, [...] DO Lumbago Degenerative arthritis 715.90 Active Robbie Bsuby MD Osteoarthrosis, unspecified whether generalized or localized, [...] chronic, stage III 585.3 Active Ca Garcia [facility] Chronic kidney disease, Stage III (moderate) C V A / Stroke Active Robbie Busby MD Myocardial Infarction: Active Robbie Busby MD Acute myocardial infarction, unspecified site, initial episode of care ( History of) Sleep apnea, chronic 780.57 Active Erin Garsia [employer] Unspecified sleep apnea Continuous positive airway pressure rx V46.2 Active Erin Garsia [employer] Other dependence on machines, 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 Fatigue 780.79 Resolved Desmond Diaz DO Other malaise and fatigue Hypertension, secondary, 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 Desmond Diaz DO Other malignant secondary hypertension Tachycardia 785.0 Active Rober Rodríguez [employer] Tachycardia, unspecified Insect bite, infected 919.5 Resolved Desmond Diaz DO Insect bite, nonvenomous, of other, multiple, and unspecified sites, infected Abscess, skin 682.9 Resolved Desmond Diaz DO Cellulitis and abscess of unspecified sites URI 465.9 Resolved Desmond Diaz DO Acute upper respiratory infections of unspecified site Hypertension 401.9 Active Rober Rodríguez [employer] Unspecified essential hypertension Sinusitis - acute 461.9 [...] low testosterone 257.2 Active Erin Garsia [employer] Other testicular hypofunction Low back pain, chronic 724.2 Active Robbie Busby MD Lumbago Bronchitis-Acute 466.0 Inactive Desmond Dante Joe DO Acute bronchitis Polydipsia 783.5 Active Desmond Dante Joe DO Polydipsia Sinusitis ICD-461.9 Inactive Emily Atwood [employer] 2017 Low back pain, acute ICD-724.2 Inactive Emily Atwood [employer] Low back pain, chronic ICD-724.2 Inactive Emily Atwood [employer] Bronchitis, acute ICD-466.0 Inactive Emily Atwood [employer] Onychomycosis, toenails ICD-110.1 Inactive Emily Atwood [employer] Dizziness ICD-780.4 Inactive Emily Atwood [employer] 2017 Folliculitis ICD-704.8 Inactive Emily Atwood [employer] Pharyngitis-Acute ICD-462 Inactive Emily Atwood [employer] Fatigue ICD-780.79 Inactive Emily Atwood [employer] 09/20 Hypertension, secondary, malignant ICD-405.09 Inactive Emily Atwood [employer] Insect bite, infected ICD-919.5 Inactive Emily Atwood [employer] Abscess, skin ICD-682.9 Inactive Emily Atwood [employer] URI ICD-465.9 Inactive Emily Atwood [employer] Sinusitis - acute ICD-461.9 Inactive Emily Atwood [employer] Acute confusion ICD-293.0 Inactive Emily Atwood [employer] Headache ICD-784.0 Inactive Emily Atwood [employer] 09/20 Back pain ICD-724.5 Inactive Emily Atwood [employer] 2017 Rib pain, right sided ICD-786.50 Inactive Emily Atwood [employer] Myalgias ICD-729.1 Inactive Emily Atwood [employer] 09/20 URI ICD-465.9 Inactive Emily Colónmarianne [employer] Bronchitis-Acute ICD-466.0 Inactive Desmond Diza DO Medication List Medication Instructions Start Date Stop Date Generic Name NDC Status Provider Patient Instruction PREDNISONE 20 MG ORAL TABLET two tabs by mouth today, then one tab by mouth days two and three PREDNISONE 04160321756 Active Desmond Diaz DO Active AZITHROMYCIN 250 MG ORAL TABLET 2 po qd x 1 day, then 1 po qd x 4 days 09/20 AZITHROMYCIN 28244884768 No Longer Active Desmond Diaz DO Active TOPIRAMATE 50 MG ORAL TABLET take 1 tab po BID for migraines. TOPIRAMATE 21013564064 No Longer Active Desmond Diaz DO Active CYCLOBENZAPRINE HCL 10 MG ORAL TABLET 1 po TID PRN muscle spasm/pain for 10 days CYCLOBENZAPRINE HCL 01433850580 No Longer Active Desmond Diaz DO Active GUAIFENESIN ER 600 MG ORAL TABLET EXTENDED RELEASE 12 HOUR 1 tab po q am 2016 GUAIFENESIN 12777084799 No Longer Active Robbie Busby MD Active DIVALPROEX SODIUM ER 500 MG ORAL TABLET EXTENDED RELEASE 24 HOUR Once daily DIVALPROEX SODIUM 10002266716 Active Robbie Busby MD Active DEPO-TESTOSTERONE 200 MG/ML INTRAMUSCULAR SOLUTION 1 IM Injections every 2 weeks for low testosterone TESTOSTERONE CYPIONATE 94788266628 Active Zulema Blank LPN Active FLUTICASONE PROPIONATE 50 MCG/ACT NASAL SUSPENSION 2 sprays per nostril bid for 1 week, then 1 spray bid FLUTICASONE PROPIONATE 12438551942 Active Rober Rodríguez APRN Active HYDRALAZINE HCL 25 MG ORAL TABLET Take 1 tab BID. HYDRALAZINE HCL 72455669980 Active Rober Rodríguez APRN Active VITAMIN D3 04461 UNIT ORAL TABLET 2 po weekly CHOLECALCIFEROL 06467750407 Active Robbie Busby MD Active OXYCODONE HCL ER 10 MG ORAL TABLET ER 12 HOUR ABUSE-DETERRENT 1 tab po 3 times qd. OXYCODONE HCL 36366361342 Active Robbie Busby MD Active NITROSTAT 0.4 MG SUBLINGUAL TABLET SUBLINGUAL PRN NITROGLYCERIN 24477971557 No Longer Active Robbie Busby MD Active LORATADINE 10 MG ORAL TABLET 1 tablet by mouth daily for congestion and allergies. LORATADINE 55087505658 No Longer Active Robbie Busby MD Active FLONASE 50 MCG/ACT NASAL SUSPENSION 1 spray each nostril twice daily for allergies and runny nose FLUTICASONE PROPIONATE 19059411496 No Longer Active Robbie Busby MD Active FIORICET 50-300-40 MG ORAL CAPSULE take 1 tab po qday prn migraines. [id number] 91761539661 No Longer Active Robbie Busby MD Active VITAMIN D3 72810 UNIT ORAL CAPSULE 2 CAPS PO WEEKLY CHOLECALCIFEROL 86236874147 No Longer Active Robbie Busby MD Active CYCLOBENZAPRINE HCL 10 MG ORAL TABLET 1 tablet by mouth three times daily as needed for muscle spasm/pain for 10 days CYCLOBENZAPRINE HCL 68592214288 No Longer Active Robbie Busby MD Active PREDNISONE 20 MG ORAL TABLET take 3 tabs daily for 3 days, 2 tabs daily for 3 days, 1 tab daily for 3 days, 1/2 tab daily for 4 days PREDNISONE 39278606035 No Longer Active Erin Garsia APRN Active CLONIDINE HCL 0.2 MG ORAL TABLET 1 TAB BY MOUTH EVERY 8 HOURS CLONIDINE HCL 63308382514 No Longer Active Erin Garsia APRN Active MECLIZINE HCL 25 MG ORAL TABLET one 4 times a day as needed for dizziness MECLIZINE HCL 21732564141 No Longer Active Erin Garsia APRN Active SPIRONOLACTONE 25 MG ORAL TABLET 4 tablets by mouth daily SPIRONOLACTONE 93280042345 No Longer Active Erin Garsia APRN Active LEVAQUIN 500 MG ORAL TABLET 1 tablet by mouth daily for 7 days LEVOFLOXACIN 22632973940 No Longer Active Erin Garsia APRN Active BACTRIM DS 800-160 MG ORAL TABLET 1 tab by mouth twice daily 2015 TRIMETHOPRIM-SULFAMETHOXAZOLE 75397222568 No Longer Active Robbie Busby MD Active HYDRALAZINE HCL 50 MG ORAL TABLET TWO BY MOUTH THREE TIMES DAILY HYDRALAZINE HCL 51088601536 No Longer Active Jillina Frazell [employer] Active HYDROCODONE-ACETAMINOPHEN 5-325 MG ORAL TABLET 1 tab by mouth BID prn back pain HYDROCODONE-ACETAMINOPHEN 36004230612 No Longer Active Jillina Frazell [employer] Active HYDROCHLOROTHIAZIDE TABLET Take one by mouth daily HYDROCHLOROTHIAZIDE TABS 71366469013 No Longer Active Jillina Frazell [employer] Active LAMISIL 125 MG ORAL PACKET 1 TAB PO DAILY TERBINAFINE HCL 77738404071 No Longer Active Jillina Frazell [employer] Active TRILEPTAL 150 MG ORAL TABLET 1 TAB PO Q HS OXCARBAZEPINE 83593833435 No Longer Active Jillina Frazell [employer] Active BETADINE 10 % EXTERNAL SOLUTION wash with solution to treat follicultis 07/29 POVIDONE-IODINE 69411174507 No Longer Active Jillina Frazell [employer] Active NYSTATIN 052569 UNIT/ML MOUTH/THROAT SUSPENSION 5mL po QID x 10 days NYSTATIN 23421537690 No Longer Active Erin Garsia APRN Active PREDNISONE 20 MG ORAL TABLET 1 tablet twice daily for 2 days, then 1 tablet once daily for 2 days PREDNISONE 48348101615 No Longer Active Robbie Busby MD Active CEFDINIR 300 MG ORAL CAPSULE Take 1 cap po bid x 10 days CEFDINIR 59486519082 No Longer Active Robbie Busby MD Active AMLODIPINE BESYLATE 10 MG ORAL TABLET 1 tablet by mouth daily AMLODIPINE BESYLATE 89041556168 Active Robbie Busby MD Active CARVEDILOL 25 MG ORAL TABLET 1 & 1/2 TAB po BID CARVEDILOL 93627652873 Active Robbie Busby MD Active NEXIUM 40 MG ORAL CAPSULE DELAYED RELEASE 1 cap by mouth daily ESOMEPRAZOLE MAGNESIUM 55602748750 Active Robbie Busby MD Active PROTONIX 40 MG INTRAVENOUS SOLUTION RECONSTITUTED 1 po qday for acid reflux PANTOPRAZOLE SODIUM 93742264998 No Longer Active Gali Raida Active KEFLEX 500 MG ORAL CAPSULE 1 po TID x 10 days CEPHALEXIN 26099479229 No Longer Active Robbie Busby MD Active TEMAZEPAM 15 MG ORAL CAPSULE 1 TAB PO Q HS TEMAZEPAM 13977454803 Active Robbie Busby MD Active ALPRAZOLAM 2 MG ORAL TABLET 1 TAB PO BID ALPRAZOLAM 65509463698 Active Robbie Busby MD Active FENOFIBRATE 145 MG ORAL TABLET Take one by mouth daily FENOFIBRATE 15398810084 No Longer Active Robbie Busby MD Active SPIRONOLACTONE 50 MG ORAL TABLET 1 tablet by mouth twice a day SPIRONOLACTONE 54966618491 No Longer Active Robbie Busby MD Active HYDRALAZINE HCL 25 MG ORAL TABLET 1 tablet by mouth tid for hypertension 2013 HYDRALAZINE HCL 08299973737 No Longer Active Robbie Busby MD Active VIIBRYD 40 MG ORAL TABLET take 1 tab po qday for depression. 2014 VILAZODONE HCL 89575976681 No Longer Active Robbie Busby MD Active TERBINAFINE HCL 250 MG ORAL TABLET 1 tab po qday for foot infection TERBINAFINE HCL 97115385176 No Longer Active Robbie Busby MD Active GABAPENTIN 300 MG ORAL CAPSULE 1 po q hs for nerve pain GABAPENTIN 70840704246 Active Robbie Busby MD Active CHERATUSSIN AC 100-10 MG/5ML ORAL SOLUTION 7.5 mL PO q 4-6 hrs PRN cough 2014 GUAIFENESIN-CODEINE 66567957549 No Longer Active Robbie Busby MD Active AZITHROMYCIN 250 MG ORAL TABLET 2 tablets PO today---then, 1 tablet PO daily x 4 more days (and 1 optional refill) AZITHROMYCIN 45620922928 No Longer Active Robbie Busby MD Active NORVASC 10 MG ORAL TABLET 1 tablet by mouth daily AMLODIPINE BESYLATE 80679529326 No Longer Active Alex ALVAREZ Active IMDUR 60 MG ORAL TABLET EXTENDED RELEASE 24 HOUR take 1 tab po qday for blood pressure ISOSORBIDE MONONITRATE 53604567950 Active Robbie Busby MD Active ISOSORBIDE DINITRATE 30 MG ORAL TABLET Take one by mouth daily ISOSORBIDE DINITRATE 98380192666 No Longer Active Robbie Busby MD Active VIIBRYD 40 MG ORAL TABLET 1 TA B PO DAILY VILAZODONE HCL 32614591227 Active Robbie Busby MD Active ZITHROMAX 250 MG ORAL TABLET 2 po today, then 1 po q days 2-5 AZITHROMYCIN 32120739392 No Longer Active Robbie Busby MD Active [id number] 0.3 MG/24HR TRANSDERMAL PATCH WEEKLY apply 2 patches q week for HTN CLONIDINE HCL 15162117986 Active Robbie Busby MD Active DOXAZOSIN MESYLATE 4 MG ORAL TABLET Take one by mouth daily DOXAZOSIN MESYLATE 51903890903 Active Robbie Busby MD Active TOPROL XL 200 MG ORAL TABLET EXTENDED RELEASE 24 HOUR Take one by mouth daily METOPROLOL SUCCINATE 65210981292 Active Robbie Busby MD Active VENLAFAXINE HCL ER 150 MG ORAL TABLET EXTENDED RELEASE 24 HOUR Take one by mouth daily VENLAFAXINE HCL 56329590255 Active Robbie Busby MD Active LIPITOR 40 MG ORAL TABLET Take one by mouth daily ATORVASTATIN CALCIUM 80167025351 Active Robbie Busby MD Active ISOSORBIDE DINITRATE 30 MG ORAL TABLET Take one by mouth daily ISOSORBIDE DINITRATE 30 MG ORAL TABLET 868610 ISOSORBIDE DINITRATE Inactive NORVASC 10 MG ORAL TABLET 1 tablet by mouth daily NORVASC 10 MG ORAL TABLET 004065 AMLODIPINE BESYLATE Inactive AZITHROMYCIN 250 MG ORAL TABLET 2 tablets PO today---then, 1 tablet PO daily x 4 more days (and 1 optional refill) AZITHROMYCIN 250 MG ORAL TABLET 763182 AZITHROMYCIN Inactive CHERATUSSIN AC 100-10 MG/5ML ORAL SOLUTION 7.5 mL PO q 4-6 hrs PRN cough 2014 CHERATUSSIN AC 100-10 MG/5ML ORAL SOLUTION 536563 GUAIFENESIN-CODEINE Inactive VIIBRYD 40 MG ORAL TABLET take 1 tab po qday for depression. 2014 VIIBRYD 40 MG ORAL TABLET VILAZODONE HCL Inactive HYDRALAZINE HCL 25 MG ORAL TABLET 1 tablet by mouth tid for hypertension 2013 HYDRALAZINE HCL 25 MG ORAL TABLET 631493 HYDRALAZINE HCL Inactive SPIRONOLACTONE 50 MG ORAL TABLET 1 tablet by mouth twice a day SPIRONOLACTONE 50 MG ORAL TABLET 480769 SPIRONOLACTONE Inactive FENOFIBRATE 145 MG ORAL TABLET Take one by mouth daily FENOFIBRATE 145 MG ORAL TABLET 529997 FENOFIBRATE Inactive PROTONIX 40 MG INTRAVENOUS SOLUTION RECONSTITUTED 1 po qday for acid reflux PROTONIX 40 MG INTRAVENOUS SOLUTION RECONSTITUTED 086972 PANTOPRAZOLE SODIUM Inactive CEFDINIR 300 MG ORAL CAPSULE Take 1 cap po bid x 10 days CEFDINIR 300 MG ORAL CAPSULE 535781 CEFDINIR Inactive PREDNISONE 20 MG ORAL TABLET 1 tablet twice daily for 2 days, then 1 tablet once daily for 2 days PREDNISONE 20 MG ORAL TABLET 975916 PREDNISONE Inactive NYSTATIN 655230 UNIT/ML MOUTH/THROAT SUSPENSION 5mL po QID x 10 days NYSTATIN 976085 UNIT/ML MOUTH/THROAT SUSPENSION 547730 NYSTATIN Inactive BETADINE 10 % EXTERNAL SOLUTION wash with solution to treat follicultis 07/29 BETADINE 10 % EXTERNAL SOLUTION 4763825 POVIDONE-IODINE Inactive TRILEPTAL 150 MG ORAL TABLET 1 TAB PO Q HS TRILEPTAL 150 MG ORAL TABLET 033824 OXCARBAZEPINE Inactive LAMISIL 125 MG ORAL PACKET 1 TAB PO DAILY LAMISIL 125 MG ORAL PACKET TERBINAFINE HCL Inactive HYDROCHLOROTHIAZIDE TABLET Take one by mouth daily HYDROCHLOROTHIAZIDE TABLET HYDROCHLOROTHIAZIDE TABS Inactive HYDROCODONE-ACETAMINOPHEN 5-325 MG ORAL TABLET 1 tab by mouth BID prn back pain HYDROCODONE-ACETAMINOPHEN 5-325 MG ORAL TABLET 317463 HYDROCODONE-ACETAMINOPHEN Inactive HYDRALAZINE HCL 50 MG ORAL TABLET TWO BY MOUTH THREE TIMES DAILY HYDRALAZINE HCL 50 MG ORAL TABLET 144598 HYDRALAZINE HCL Inactive LEVAQUIN 500 MG ORAL TABLET 1 tablet by mouth daily for 7 days LEVAQUIN 500 MG ORAL TABLET 463210 LEVOFLOXACIN Inactive SPIRONOLACTONE 25 MG ORAL TABLET 4 tablets by mouth daily SPIRONOLACTONE 25 MG ORAL TABLET 148566 SPIRONOLACTONE Inactive MECLIZINE HCL 25 MG ORAL TABLET one 4 times a day as needed for dizziness MECLIZINE HCL 25 MG ORAL TABLET 999386 MECLIZINE HCL Inactive CLONIDINE HCL 0.2 MG ORAL TABLET 1 TAB BY MOUTH EVERY 8 HOURS CLONIDINE HCL 0.2 MG ORAL TABLET 945247 CLONIDINE HCL Inactive CYCLOBENZAPRINE HCL 10 MG ORAL TABLET 1 tablet by mouth three times daily as needed for muscle spasm/pain for 10 days CYCLOBENZAPRINE HCL 10 MG ORAL TABLET 366429 CYCLOBENZAPRINE HCL Inactive VITAMIN D3 96238 UNIT ORAL CAPSULE 2 CAPS PO WEEKLY VITAMIN D3 20071 UNIT ORAL CAPSULE CHOLECALCIFEROL Inactive FIORICET 50-300-40 MG ORAL CAPSULE take 1 tab po qday prn migraines. FIORICET 50-300-40 MG ORAL CAPSULE 851853 BUTALBITAL-APAP- CAFFEINE Inactive FLONASE 50 MCG/ACT NASAL SUSPENSION 1 spray each nostril twice daily for allergies and runny nose FLONASE 50 MCG/ACT NASAL SUSPENSION 6095854 FLUTICASONE PROPIONATE Inactive LORATADINE 10 MG ORAL TABLET 1 tablet by mouth daily for congestion and allergies. LORATADINE 10 MG ORAL TABLET 696600 LORATADINE Inactive NITROSTAT 0.4 MG SUBLINGUAL TABLET SUBLINGUAL PRN NITROSTAT 0.4 MG SUBLINGUAL TABLET SUBLINGUAL 064409 NITROGLYCERIN Inactive GUAIFENESIN ER 600 MG ORAL TABLET EXTENDED RELEASE 12 HOUR 1 tab po q am 2016 GUAIFENESIN ER 600 MG ORAL TABLET EXTENDED RELEASE 12 HOUR GUAIFENESIN Inactive CYCLOBENZAPRINE HCL 10 MG ORAL TABLET 1 po TID PRN muscle spasm/pain for 10 days CYCLOBENZAPRINE HCL 10 MG ORAL TABLET 250448 CYCLOBENZAPRINE HCL Inactive TOPIRAMATE 50 MG ORAL TABLET take 1 tab po BID for migraines. TOPIRAMATE 50 MG ORAL TABLET 432846 TOPIRAMATE Inactive ZITHROMAX 250 MG ORAL TABLET 2 po today, then 1 po q days 2-5 ZITHROMAX 250 MG ORAL TABLET 630339 AZITHROMYCIN Inactive TERBINAFINE HCL 250 MG ORAL TABLET 1 tab po qday for foot infection TERBINAFINE HCL 250 MG ORAL TABLET 291258 TERBINAFINE HCL Inactive KEFLEX 500 MG ORAL CAPSULE 1 po TID x 10 days KEFLEX 500 MG ORAL CAPSULE 312292 CEPHALEXIN Inactive BACTRIM DS 800-160 MG ORAL TABLET 1 tab by mouth twice daily 2015 BACTRIM DS 800-160 MG ORAL TABLET 252390 TRIMETHOPRIM- SULFAMETHOXAZOLE Inactive PREDNISONE 20 MG ORAL TABLET take 3 tabs daily for 3 days, 2 tabs daily for 3 days, 1 tab daily for 3 days, 1/2 tab daily for 4 days PREDNISONE 20 MG ORAL TABLET 633705 PREDNISONE Inactive AZITHROMYCIN 250 MG ORAL TABLET 2 po qd x 1 day, then 1 po qd x 4 days 09/20 AZITHROMYCIN 250 MG ORAL TABLET 338792 AZITHROMYCIN Inactive Advance Directives Directive Description Start [...] AUTO - Chemistry sodium, serum 142 mmol/L 896-277 4535/07/17 carbon dioxide, venous blood 28.2 mmol/L 21.0-32.0 [...] % 11.0-15.0 platelet count 185 THOUSAND/UL 10*3/mm3 049-358 2245/04/14 mean platelet volume 10.9 fL 7.5-12.5 Lab Report: HGBA1C, Basic Metabolic Panel - Chemistry hemoglobin A1C, blood, as % of total hemoglobin 6.9 % 4.3-6.0 sodium, serum 139 mmol/L 021-446 6368/01/04 potassium, serum 3.9 mmol/L 3.5-5.2 chloride, serum 103 mmol/L 98-107 carbon dioxide, venous blood 26.9 mmol/L 21.0-32.0 blood glucose 106 mg/dL 65-110 calcium, serum 9.0 mg/dL 8.5-10.1 urea nitrogen, blood 20 mg/dL 7-18 creatinine, serum 1.46 mg/dL 0.60-1.30 Lab Report: LIPID PANEL, TSH/899, T4, FREE/866 - Chemistry cholesterol, serum 220 mg/dL 557-549 4788/04/14 HDL cholesterol, serum 30 mg/dL > OR=40 [...] 1.80 ng/mL 0.00-4.00 Lab Report: VITAMIN D, 25-HYDROXY/00096 - Chemistry vitamin D 25-hydroxy, serum 25 ng/mL 30-100 Office Visit: Confusion, dizziness after fall - Basic LDL target level 130 mg/dL Office Visit: Confusion, dizziness after fall - Chemistry HDL cholesterol, serum, target level 40 mg/dL triglyceride, target level 150 mg/dL cholesterol, target level 200 mg/dL Encounters Code Encounter Date Provider Facility CPT-63401 Level 4 Est. 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 Patient 15:40:49 CDT Robbie Busby MD [facility] CPT-82250 Level 4 Est. Patient 15:18:19 CDT Robbie Busby MD [facility] CPT-82451 Level 3 Est. Patient 09:00:37 CDT [facility] CPT-81951 Level 3 Est. Patient 16:07:10 CDT Robbie Busby MD [facility] CPT-18185 Level 4 Est. Patient 11:56:16 CDT Erin Garsia [facility] CPT-76848 Level 3 Est. Patient 17:48:02 CDT Robbie Busby MD [facility] CPT-02250 Level 4 Est. 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 Patient 09:16:37 CDT Robbie Busyb MD [facility] CPT-68600 Level 3 Est. Patient 19:38:43 CDT Robbie Busby MD [facility] CPT-45334 Level 3 Est. Patient 11:53:38 CDT Robbie Busby MD [facility]-51262 Level 4 Est. Patient 12:52:22 CDT Rober Rodríguez APRN [facility]-31061 Level 4 Est. Patient 22:55:17 CDT Robbie Busby MD [facility]-73146 Level 3 Est. Patient 12:38:24 CDT Desmond Diaz DO [facility]-06767 Level 4 Est. 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 Patient 14:50:10 CDT Robbie Busby MD [facility]-22941 Level 4 Est. Patient 23:30:43 CDT Robbie Busby MD [facility]-56401 Level 4 Est. Patient 10:30:43 CDT Robbie Busby MD [facility] CPT-12960 Level 3 Est. Patient 17:08:12 CDT Alex ALVAREZ [facility] CPT-03742 Level 4 Est. Patient 17:51:38 CDT Robbie Busby MD [facility]-31606 Level 4 Est. Patient 14:00:21 CDT Robbie Busby MD [facility]-97893 Level 4 Est. Patient 12:46:48 CDT Robbie Busby MD [facility]-03073 Level 4 Est. Patient 13:34:33 CDT Robbie Busby MD [facility]-06114 Level 4 Est. Patient 16:58:28 CDT Robbie Busby MD [facility]-77553 Level 3 Est. Patient 19:36:53 CDT Alex ALVAREZ [facility] CPT-43459 Level 3 Est. 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 CPT-37486 Abx/Therapy Injection 15:33:58 EXECUTIVE SALES MANAGER CPT-J1071 Depo Testosterone 200mg 09:38:36 EXECUTIVE SALES MANAGER CPT-65688 Abx/Therapy Injection 09:38:36 EXECUTIVE SALES MANAGER CPT-J1071 Depo Testosterone 200mg 10:22:56 EXECUTIVE SALES MANAGER CPT-41467 Abx/Therapy Injection 10:22:56 EXECUTIVE SALES MANAGER CPT-J1071 Depo Testosterone 200mg 15:40:23 CDT CPT-94082 Abx/Therapy Injection 15:40:23 CDT CPT-J1071 Depo Testosterone 200mg 14:20:43 CDT CPT-35939 Abx/Therapy Injection 14:20:43 CDT CPT-J1071 Depo Testosterone 200mg 14:17:22 CDT CPT-79642 Abx/Therapy Injection 14:17:22 CDT CPT-J1071 Depo Testosterone 200mg 09:03:53 CDT CPT-88636 Abx/Therapy Injection 09:03:53 CDT CPT-G0439 [facility] Annual Wellness Exam 16:47:44 CDT CPT-J1071 Depo Testosterone 200mg 09:06:28 CDT CPT-89768 Abx/Therapy Injection 09:06:28 CDT CPT-J1071 Depo Testosterone 200mg 08:30:01 CDT CPT-71727 Abx/Therapy Injection 08:30:01 CDT CPT-J1071 Depo Testosterone 200mg 08:24:00 CDT CPT-82694 Abx/Therapy Injection 08:24:00 CDT CPT-81100 Venipuncture Draw Fee 14:39:06 CDT CPT-69914 Ribs unilateral 2V - XRAY USE ONLY 12:10:11 CDT CPT-04998 First Vx - Ix admin for Medicare patients 16:32:53 CDT CPT-75864 Boostrix Intramuscular Suspension 5-2.5-18.5 16:32:53 CDT CPT-60221 TB Skin Test 11:42:28 CDT CPT-58573 Tdap 7yrs or > 11:42:28 CDT CPT-J0696 Rocephin 1000 mg (Ceftriaxone) 17:43:43 EXECUTIVE SALES MANAGER CPT-J1040 Depo Medrol 80 mg (Methyl Prednisolone Acetate) 17:43: 43 EXECUTIVE SALES MANAGER CPT-J1100 Decadron 8mg (Dexamethasone) 17:43:42 EXECUTIVE SALES MANAGER CPT-76004 Abx/Therapy Injection 17:43:42 EXECUTIVE SALES MANAGER CPT-60193 Abx/Therapy Injection 17:43:42 EXECUTIVE SALES MANAGER CPT-J1040 Depo Medrol 80 mg (Methyl Prednisolone Acetate) 09:43: 34 EXECUTIVE SALES MANAGER CPT-J1100 Decadron 8mg (Dexamethasone) 09:43:34 EXECUTIVE SALES MANAGER CPT-J0696 Rocephin 1gm Inj Solr 09:43:34 EXECUTIVE SALES MANAGER CPT-25202 Wound Culture - LAB USE ONLY 14:00:21 CDT CPT-I/D I/D Abscess 09:16:37 CDT CPT-16287 Venipuncture Draw Fee 15:20:23 CDT CPT-89183 Microalbumin - LAB USE ONLY 16:02:19 CDT CPT-29133 CBC - LAB USE ONLY 16:02:19 CDT CPT-21802 Venipuncture Draw Fee 16:02:19 CDT CPT-G0438 Initial Annual Wellness Exam 08:10:28 CDT CPT-99967 Venipuncture Draw Fee 13:07:17 CDT CPT-G0008 Administration of Influenza Virus Vaccine 16:09:59 CDT CPT-43812 Fluzone Quadrivalent Intramuscular Suspension 0.5 ML 16: 09:59 CDT CPT-51742 Spec Collection and Handling Fee 15:05:50 CDT
--- OUTSIDE RECORDS SUMMARY | 2018-04-18 12:11 | XMS REPORT | Clinical Summary ---
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 Desmond Diaz DO Other malignant secondary hypertension Tachycardia 785.0 Active Rober Rodríguez ROLL UP MACHINE OPERATOR Tachycardia, unspecified Insect bite, infected 919.5 Resolved Desmond Diaz DO Insect bite, nonvenomous, of other, multiple, and unspecified sites, infected Abscess, skin 682.9 Resolved Desmond Diaz DO Cellulitis and abscess of unspecified sites URI 465.9 Resolved Desmond Diaz DO Acute upper respiratory infections of unspecified site Hypertension 401.9 Active Rober Rodríguez ROLL UP MACHINE OPERATOR Unspecified essential hypertension Sinusitis - [...] Hypogonadism, low testosterone 257.2 Active Erin Mai ROLL UP MACHINE OPERATOR Other testicular hypofunction Low back pain, [...] 36.0-36.9, adult Sinusitis ICD-461.9 Inactive Emily Atwood POISON INFORMATION SPECIALIST 2017 Low back pain, acute ICD-724.2 Inactive Emily Atwood POISON INFORMATION SPECIALIST Low back pain, chronic ICD-724.2 Inactive Emily Atwood POISON INFORMATION SPECIALIST Bronchitis, acute ICD-466.0 Inactive Emily Atwood POISON INFORMATION SPECIALIST Onychomycosis, toenails ICD-110.1 Inactive Emily Atwood POISON INFORMATION SPECIALIST Dizziness ICD-780.4 Inactive Emily Atwood POISON INFORMATION SPECIALIST 2017 Folliculitis ICD-704.8 Inactive Emily Atwood POISON INFORMATION SPECIALIST Pharyngitis-Acute ICD-462 Inactive Emily Atwood POISON INFORMATION SPECIALIST Fatigue ICD-780.79 Inactive Emily Atwood POISON INFORMATION SPECIALIST 09/20 Hypertension, secondary, malignant ICD-405.09 Inactive Emily Atwood POISON INFORMATION SPECIALIST Insect bite, infected ICD-919.5 Inactive Emily Atwood POISON INFORMATION SPECIALIST Abscess, skin ICD-682.9 Inactive Emily Atwood POISON INFORMATION SPECIALIST URI ICD-465.9 Inactive Emily Atwood POISON INFORMATION SPECIALIST Sinusitis - acute ICD-461.9 Inactive Emily Atwood POISON INFORMATION SPECIALIST Acute confusion ICD-293.0 Inactive Emily Atwood POISON INFORMATION SPECIALIST Headache ICD-784.0 Inactive Emily Atwood POISON INFORMATION SPECIALIST 09/20 Back pain ICD-724.5 Inactive Emily Atwood POISON INFORMATION SPECIALIST 2017 Rib pain, right sided ICD-786.50 Inactive Emily Atwood POISON INFORMATION SPECIALIST Myalgias ICD-729.1 Inactive Emily Atwood POISON INFORMATION SPECIALIST 09/20 URI ICD-465.9 Inactive Emily Atwood POISON INFORMATION SPECIALIST Bronchitis-Acute ICD-466.0 Inactive Desmond Diaz DO Medication List Medication Instructions Start Date Stop Date Generic Name NDC Status Provider Patient Instruction MONTELUKAST SODIUM 10 MG ORAL TABLET 1 tab po daily for allergies MONTELUKAST SODIUM 36368541087 Active JONATHAN Moncada Active IMDUR 60 MG ORAL TABLET EXTENDED RELEASE 24 HOUR 1 po q day ISOSORBIDE MONONITRATE 01358669406 Active Emma Hernandez Active METOPROLOL SUCCINATE ER 200 MG ORAL TABLET EXTENDED RELEASE 24 HOUR take 1 tab po qday for high blood pressure and rapid pulse METOPROLOL SUCCINATE 20878670722 Active Robbie Busby MD Active [id number] 0.3 MG/24HR TRANSDERMAL PATCH WEEKLY apply 2 patches q week for HTN CLONIDINE HCL 84221959886 No Longer Active Robbie Busby MD Active IMDUR 60 MG ORAL TABLET EXTENDED RELEASE 24 HOUR take 1 tab po qday for blood pressure ISOSORBIDE MONONITRATE 93337998170 No Longer Active Robbie Busby MD Active TEMAZEPAM 15 MG ORAL CAPSULE 1 TAB PO Q HS TEMAZEPAM 40738596790 No Longer Active Robbie Busby MD Active TOPIRAMATE 50 MG ORAL TABLET 1 po BID for migraines TOPIRAMATE 50121829724 No Longer Active Robbie Busby MD Active CYCLOBENZAPRINE HCL 10 MG ORAL TABLET 1 tablet by mouth three times daily as needed for muscle spasm/pain CYCLOBENZAPRINE HCL 91028469981 No Longer Active Robbie Busby MD Active TOPROL XL 200 MG ORAL TABLET EXTENDED RELEASE 24 HOUR Take one by mouth daily METOPROLOL SUCCINATE 87931453530 No Longer Active Robbie Busby MD Active METFORMIN HCL 500 MG ORAL TABLET 1 tablet by mouth daily for diabetes type 2 METFORMIN HCL 40936440527 Active Robbie Busby MD Active SINGULAIR 10 MG ORAL TABLET 1 po qday for allergies. MONTELUKAST SODIUM 60464744699 No Longer Active Robbie Busby MD Active PREDNISONE 20 MG ORAL TABLET two tabs by mouth today, then one tab by mouth days two and three PREDNISONE 85512326037 No Longer Active Robbie Busby MD Active AZITHROMYCIN 250 MG ORAL TABLET 2 po qd x 1 day, then 1 po qd x 4 days 09/20 AZITHROMYCIN 49584255403 No Longer Active Desmond Diaz DO Active TOPIRAMATE 50 MG ORAL TABLET take 1 tab po BID for migraines. TOPIRAMATE 86710753149 No Longer Active Desmond Diaz DO Active CYCLOBENZAPRINE HCL 10 MG ORAL TABLET 1 po TID PRN muscle spasm/pain for 10 days CYCLOBENZAPRINE HCL 88078525488 No Longer Active Desmond Diaz DO Active GUAIFENESIN ER 600 MG ORAL TABLET EXTENDED RELEASE 12 HOUR 1 tab po q am 2016 GUAIFENESIN 92095835743 No Longer Active Robbie Busby MD Active DIVALPROEX SODIUM ER 500 MG ORAL TABLET EXTENDED RELEASE 24 HOUR Once daily DIVALPROEX SODIUM 91778644622 Active Robbie Busby MD Active DEPO-TESTOSTERONE 200 MG/ML INTRAMUSCULAR SOLUTION 1 IM Injections every 2 weeks for low testosterone TESTOSTERONE CYPIONATE 41729942980 Active Zulema Blank LPN Active FLUTICASONE PROPIONATE 50 MCG/ACT NASAL SUSPENSION 2 sprays per nostril bid for 1 week, then 1 spray bid FLUTICASONE PROPIONATE 73751792695 Active Rober Rodríguez ROLL UP MACHINE 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 HYDRALAZINE HCL 51898511971 Active Rober Rodríguez ROLL UP MACHINE OPERATOR Active VITAMIN D3 47371 UNIT ORAL TABLET 2 po weekly CHOLECALCIFEROL 39399987664 Active Robbie Busby MD Active OXYCODONE HCL ER 10 MG ORAL TABLET ER 12 HOUR ABUSE-DETERRENT 1 tab po 3 times qd. OXYCODONE HCL 07323701610 Active Robbie Busby MD Active NITROSTAT 0.4 MG SUBLINGUAL TABLET SUBLINGUAL PRN NITROGLYCERIN 69494293058 No Longer Active Robbie Busby MD Active LORATADINE 10 MG ORAL TABLET 1 tablet by mouth daily for congestion and allergies. LORATADINE 06771796602 No Longer Active Robbie Busby MD Active FLONASE 50 MCG/ACT NASAL SUSPENSION 1 spray each nostril twice daily for allergies and runny nose FLUTICASONE PROPIONATE 99819977142 No Longer Active Robbie Busby MD Active FIORICET 50-300-40 MG ORAL CAPSULE take 1 tab po qday prn migraines. [id number] 81106775966 No Longer Active Robbie Busby MD Active VITAMIN D3 20498 UNIT ORAL CAPSULE 2 CAPS PO WEEKLY CHOLECALCIFEROL 67547551532 No Longer Active Robbie Busby MD Active CYCLOBENZAPRINE HCL 10 MG ORAL TABLET 1 tablet by mouth three times daily as needed for muscle spasm/pain for 10 days CYCLOBENZAPRINE HCL 68021442891 No Longer Active Robbie Busby MD Active PREDNISONE 20 MG ORAL TABLET take 3 tabs daily for 3 days, 2 tabs daily for 3 days, 1 tab daily for 3 days, 1/2 tab daily for 4 days PREDNISONE 02383147818 No Longer Active Erin Arell ROLL UP MACHINE OPERATOR Active CLONIDINE HCL 0.2 MG ORAL TABLET 1 TAB BY MOUTH EVERY 8 HOURS CLONIDINE HCL 32253127814 No Longer Active Erin Arell ROLL UP MACHINE OPERATOR Active MECLIZINE HCL 25 MG ORAL TABLET one 4 times a day as needed for dizziness MECLIZINE HCL 90852898857 No Longer Active Erin Arell ROLL UP MACHINE OPERATOR Active SPIRONOLACTONE 25 MG ORAL TABLET 4 tablets by mouth daily SPIRONOLACTONE 61944144940 No Longer Active Erin Arell ROLL UP MACHINE OPERATOR Active LEVAQUIN 500 MG ORAL TABLET 1 tablet by mouth daily for 7 days LEVOFLOXACIN 94964801900 No Longer Active Erin Arell ROLL UP MACHINE OPERATOR Active BACTRIM DS 800-160 MG ORAL TABLET 1 tab by mouth twice daily 2015 TRIMETHOPRIM-SULFAMETHOXAZOLE 27629792609 No Longer Active Robbie Busby MD Active HYDRALAZINE HCL 50 MG ORAL TABLET TWO BY MOUTH THREE TIMES DAILY HYDRALAZINE HCL 27957886186 No Longer Active Jillina Frazell ROLL UP MACHINE OPERATOR Active HYDROCODONE-ACETAMINOPHEN 5-325 MG ORAL TABLET 1 tab by mouth BID prn back pain HYDROCODONE-ACETAMINOPHEN 55237325182 No Longer Active Jillina Frazell ROLL UP MACHINE OPERATOR Active HYDROCHLOROTHIAZIDE TABLET Take one by mouth daily HYDROCHLOROTHIAZIDE TABS 25129637649 No Longer Active Jillina Frazell ROLL UP MACHINE OPERATOR Active LAMISIL 125 MG ORAL PACKET 1 TAB PO DAILY TERBINAFINE HCL 93312061051 No Longer Active Jillina Frazell ROLL UP MACHINE OPERATOR Active TRILEPTAL 150 MG ORAL TABLET 1 TAB PO Q HS OXCARBAZEPINE 78703760782 No Longer Active Jillina Frazell ROLL UP MACHINE OPERATOR Active BETADINE 10 % EXTERNAL SOLUTION wash with solution to treat follicultis 07/29 POVIDONE-IODINE 75519845650 No Longer Active Rober Rodríguez APRN Active NYSTATIN 399693 UNIT/ML MOUTH/THROAT SUSPENSION 5mL po QID x 10 days NYSTATIN 17753269415 No Longer Active Erin Mai APRN Active PREDNISONE 20 MG ORAL TABLET 1 tablet twice daily for 2 days, then 1 tablet once daily for 2 days PREDNISONE 60912210787 No Longer Active Robbie Busby MD Active CEFDINIR 300 MG ORAL CAPSULE Take 1 cap po bid x 10 days CEFDINIR 20814055587 No Longer Active Robbie Busby MD Active AMLODIPINE BESYLATE 10 MG ORAL TABLET 1 tablet by mouth daily AMLODIPINE BESYLATE 29215804346 Active Robbie Busby MD Active CARVEDILOL 25 MG ORAL TABLET 1 & 1/2 TAB po BID CARVEDILOL 20621608257 Active Robbie Busby MD Active NEXIUM 40 MG ORAL CAPSULE DELAYED RELEASE 1 cap by mouth daily ESOMEPRAZOLE MAGNESIUM 47983791554 Active Robbie Busby MD Active PROTONIX 40 MG INTRAVENOUS SOLUTION RECONSTITUTED 1 po qday for acid reflux PANTOPRAZOLE SODIUM 29568623018 No Longer Active Gali Raida Active KEFLEX 500 MG ORAL CAPSULE 1 po TID x 10 days CEPHALEXIN 93784620414 No Longer Active Robbie Busby MD Active ALPRAZOLAM 2 MG ORAL TABLET 1 TAB PO BID ALPRAZOLAM 40399989281 Active Robbie Busby MD Active FENOFIBRATE 145 MG ORAL TABLET Take one by mouth daily FENOFIBRATE 09169645827 No Longer Active Robbie Busby MD Active SPIRONOLACTONE 50 MG ORAL TABLET 1 tablet by mouth twice a day SPIRONOLACTONE 01180137646 No Longer Active Robbie Busby MD Active HYDRALAZINE HCL 25 MG ORAL TABLET 1 tablet by mouth tid for hypertension 2013 HYDRALAZINE HCL 26849011213 No Longer Active Robbie Busby MD Active VIIBRYD 40 MG ORAL TABLET take 1 tab po qday for depression. 2014 VILAZODONE HCL 36948155813 No Longer Active Robbie Busby MD Active TERBINAFINE HCL 250 MG ORAL TABLET 1 tab po qday for foot infection TERBINAFINE HCL 49252487795 No Longer Active Robbie Busby MD Active GABAPENTIN 300 MG ORAL CAPSULE 1 po q hs for nerve pain GABAPENTIN 15327608891 Active Robbie Busby MD Active CHERATUSSIN AC 100-10 MG/5ML ORAL SOLUTION 7.5 mL PO q 4-6 hrs PRN cough 2014 GUAIFENESIN-CODEINE 07859411687 No Longer Active Robbie Busby MD Active AZITHROMYCIN 250 MG ORAL TABLET 2 tablets PO today---then, 1 tablet PO daily x 4 more days (and 1 optional refill) AZITHROMYCIN 67136697853 No Longer Active Robbie Busby MD Active NORVASC 10 MG ORAL TABLET 1 tablet by mouth daily AMLODIPINE BESYLATE 14643876623 No Longer Active Alex ALVAREZ Active ISOSORBIDE DINITRATE 30 MG ORAL TABLET Take one by mouth daily ISOSORBIDE DINITRATE 67551149463 No Longer Active Robbie Busby MD Active VIIBRYD 40 MG ORAL TABLET 1 TA B PO DAILY VILAZODONE HCL 51281859496 Active Robbie Busby MD Active ZITHROMAX 250 MG ORAL TABLET 2 po today, then 1 po q days 2-5 AZITHROMYCIN 19741416358 No Longer Active Robbie Busby MD Active DOXAZOSIN MESYLATE 4 MG ORAL TABLET Take one by mouth daily DOXAZOSIN MESYLATE 12512909865 Active Robbie Busby MD Active VENLAFAXINE HCL ER 150 MG ORAL TABLET EXTENDED RELEASE 24 HOUR Take one by mouth daily VENLAFAXINE HCL 58803071128 Active Robbie Busby MD Active LIPITOR 40 MG ORAL TABLET Take one by mouth daily ATORVASTATIN CALCIUM 08529988664 Active Robbie Busby MD Active ISOSORBIDE DINITRATE 30 MG ORAL TABLET Take one by mouth daily ISOSORBIDE DINITRATE 30 MG ORAL TABLET 734229 ISOSORBIDE DINITRATE Inactive NORVASC 10 MG ORAL TABLET 1 tablet by mouth daily NORVASC 10 MG ORAL TABLET 292191 AMLODIPINE BESYLATE Inactive AZITHROMYCIN 250 MG ORAL TABLET 2 tablets PO today---then, 1 tablet PO daily x 4 more days (and 1 optional refill) AZITHROMYCIN 250 MG ORAL TABLET 297121 AZITHROMYCIN Inactive CHERATUSSIN AC 100-10 MG/5ML ORAL SOLUTION 7.5 mL PO q 4-6 hrs PRN cough 2014 CHERATUSSIN AC 100-10 MG/5ML ORAL SOLUTION 618675 GUAIFENESIN-CODEINE Inactive VIIBRYD 40 MG ORAL TABLET take 1 tab po qday for depression. 2014 VIIBRYD 40 MG ORAL TABLET VILAZODONE HCL Inactive HYDRALAZINE HCL 25 MG ORAL TABLET 1 tablet by mouth tid for hypertension 2013 HYDRALAZINE HCL 25 MG ORAL TABLET 919309 HYDRALAZINE HCL Inactive SPIRONOLACTONE 50 MG ORAL TABLET 1 tablet by mouth twice a day SPIRONOLACTONE 50 MG ORAL TABLET 884162 SPIRONOLACTONE Inactive FENOFIBRATE 145 MG ORAL TABLET Take one by mouth daily FENOFIBRATE 145 MG ORAL TABLET 929163 FENOFIBRATE Inactive PROTONIX 40 MG INTRAVENOUS SOLUTION RECONSTITUTED 1 po qday for acid reflux PROTONIX 40 MG INTRAVENOUS SOLUTION RECONSTITUTED 194406 PANTOPRAZOLE SODIUM Inactive CEFDINIR 300 MG ORAL CAPSULE Take 1 cap po bid x 10 days CEFDINIR 300 MG ORAL CAPSULE 795450 CEFDINIR Inactive PREDNISONE 20 MG ORAL TABLET 1 tablet twice daily for 2 days, then 1 tablet once daily for 2 days PREDNISONE 20 MG ORAL TABLET 244684 PREDNISONE Inactive NYSTATIN 541031 UNIT/ML MOUTH/THROAT SUSPENSION 5mL po QID x 10 days NYSTATIN 111480 UNIT/ML MOUTH/THROAT SUSPENSION 563586 NYSTATIN Inactive BETADINE 10 % EXTERNAL SOLUTION wash with solution to treat follicultis 07/29 BETADINE 10 % EXTERNAL SOLUTION 3903073 POVIDONE-IODINE Inactive TRILEPTAL 150 MG ORAL TABLET 1 TAB PO Q HS TRILEPTAL 150 MG ORAL TABLET 185378 OXCARBAZEPINE Inactive LAMISIL 125 MG ORAL PACKET 1 TAB PO DAILY LAMISIL 125 MG ORAL PACKET TERBINAFINE HCL Inactive HYDROCHLOROTHIAZIDE TABLET Take one by mouth daily HYDROCHLOROTHIAZIDE TABLET HYDROCHLOROTHIAZIDE TABS Inactive HYDROCODONE-ACETAMINOPHEN 5-325 MG ORAL TABLET 1 tab by mouth BID prn back pain HYDROCODONE-ACETAMINOPHEN 5-325 MG ORAL TABLET 704234 HYDROCODONE-ACETAMINOPHEN Inactive HYDRALAZINE HCL 50 MG ORAL TABLET TWO BY MOUTH THREE TIMES DAILY HYDRALAZINE HCL 50 MG ORAL TABLET 385963 HYDRALAZINE HCL Inactive LEVAQUIN 500 MG ORAL TABLET 1 tablet by mouth daily for 7 days LEVAQUIN 500 MG ORAL TABLET 531635 LEVOFLOXACIN Inactive SPIRONOLACTONE 25 MG ORAL TABLET 4 tablets by mouth daily SPIRONOLACTONE 25 MG ORAL TABLET 878023 SPIRONOLACTONE Inactive MECLIZINE HCL 25 MG ORAL TABLET one 4 times a day as needed for dizziness MECLIZINE HCL 25 MG ORAL TABLET 693256 MECLIZINE HCL Inactive CLONIDINE HCL 0.2 MG ORAL TABLET 1 TAB BY MOUTH EVERY 8 HOURS CLONIDINE HCL 0.2 MG ORAL TABLET 608427 CLONIDINE HCL Inactive CYCLOBENZAPRINE HCL 10 MG ORAL TABLET 1 tablet by mouth three times daily as needed for muscle spasm/pain for 10 days CYCLOBENZAPRINE HCL 10 MG ORAL TABLET 883899 CYCLOBENZAPRINE HCL Inactive VITAMIN D3 17258 UNIT ORAL CAPSULE 2 CAPS PO WEEKLY VITAMIN D3 36217 UNIT ORAL CAPSULE CHOLECALCIFEROL Inactive FIORICET 50-300-40 MG ORAL CAPSULE take 1 tab po qday prn migraines. FIORICET 50-300-40 MG ORAL CAPSULE 299559 BUTALBITAL-APAP- CAFFEINE Inactive FLONASE 50 MCG/ACT NASAL SUSPENSION 1 spray each nostril twice daily for allergies and runny nose FLONASE 50 MCG/ACT NASAL SUSPENSION 4147039 FLUTICASONE PROPIONATE Inactive LORATADINE 10 MG ORAL TABLET 1 tablet by mouth daily for congestion and allergies. LORATADINE 10 MG ORAL TABLET 432933 LORATADINE Inactive NITROSTAT 0.4 MG SUBLINGUAL TABLET SUBLINGUAL PRN NITROSTAT 0.4 MG SUBLINGUAL TABLET SUBLINGUAL 141080 NITROGLYCERIN Inactive GUAIFENESIN ER 600 MG ORAL TABLET EXTENDED RELEASE 12 HOUR 1 tab po q am 2016 GUAIFENESIN ER 600 MG ORAL TABLET EXTENDED RELEASE 12 HOUR GUAIFENESIN Inactive CYCLOBENZAPRINE HCL 10 MG ORAL TABLET 1 po TID PRN muscle spasm/pain for 10 days CYCLOBENZAPRINE HCL 10 MG ORAL TABLET 195840 CYCLOBENZAPRINE HCL Inactive TOPIRAMATE 50 MG ORAL TABLET take 1 tab po BID for migraines. TOPIRAMATE 50 MG ORAL TABLET 191775 TOPIRAMATE Inactive PREDNISONE 20 MG ORAL TABLET two tabs by mouth today, then one tab by mouth days two and three PREDNISONE 20 MG ORAL TABLET 531751 PREDNISONE Inactive TOPROL XL 200 MG ORAL TABLET EXTENDED RELEASE 24 HOUR Take one by mouth daily TOPROL XL 200 MG ORAL TABLET EXTENDED RELEASE 24 HOUR METOPROLOL SUCCINATE Inactive CYCLOBENZAPRINE HCL 10 MG ORAL TABLET 1 tablet by mouth three times daily as needed for muscle spasm/pain CYCLOBENZAPRINE HCL 10 MG ORAL TABLET 000090 CYCLOBENZAPRINE HCL Inactive TOPIRAMATE 50 MG ORAL TABLET 1 po BID for migraines TOPIRAMATE 50 MG ORAL TABLET 844617 TOPIRAMATE Inactive TEMAZEPAM 15 MG ORAL CAPSULE 1 TAB PO Q HS TEMAZEPAM 15 MG ORAL CAPSULE 479595 TEMAZEPAM Inactive IMDUR 60 MG ORAL TABLET EXTENDED RELEASE 24 HOUR take 1 tab po qday for blood pressure IMDUR 60 MG ORAL TABLET EXTENDED RELEASE 24 HOUR ISOSORBIDE MONONITRATE Inactive [id number] 0.3 MG/24HR TRANSDERMAL PATCH WEEKLY apply 2 patches q week for HTN [id number] 0.3 MG/24HR TRANSDERMAL PATCH WEEKLY 130230 CLONIDINE HCL Inactive ZITHROMAX 250 MG ORAL TABLET 2 po today, then 1 po q days 2-5 ZITHROMAX 250 MG ORAL TABLET 737012 AZITHROMYCIN Inactive TERBINAFINE HCL 250 MG ORAL TABLET 1 tab po qday for foot infection TERBINAFINE HCL 250 MG ORAL TABLET 003371 TERBINAFINE HCL Inactive KEFLEX 500 MG ORAL CAPSULE 1 po TID x 10 days KEFLEX 500 MG ORAL CAPSULE 523795 CEPHALEXIN Inactive BACTRIM DS 800-160 MG ORAL TABLET 1 tab by mouth twice daily 2015 BACTRIM DS 800-160 MG ORAL TABLET 739038 TRIMETHOPRIM- SULFAMETHOXAZOLE Inactive PREDNISONE 20 MG ORAL TABLET take 3 tabs daily for 3 days, 2 tabs daily for 3 days, 1 tab daily for 3 days, 1/2 tab daily for 4 days PREDNISONE 20 MG ORAL TABLET 964201 PREDNISONE Inactive AZITHROMYCIN 250 MG ORAL TABLET 2 po qd x 1 day, then 1 po qd x 4 days 09/20 AZITHROMYCIN 250 MG ORAL TABLET 892114 AZITHROMYCIN Inactive SINGULAIR 10 MG ORAL TABLET 1 po qday for allergies. SINGULAIR 10 MG ORAL TABLET 862721 MONTELUKAST SODIUM Inactive Advance Directives Directive Description [...] AUTO - Chemistry sodium, serum 142 mmol/L 302-830 0140/07/17 carbon dioxide, venous blood 28.2 mmol/L 21.0-32.0 [...] Panel - Chemistry sodium, serum 141 mmol/L 318-833 9083/02/13 carbon dioxide, venous blood 23.9 mmol/L 21.0-32.0 [...] 6.9 % 4.3-6.0 sodium, serum 139 mmol/L 431-831 6186/01/04 potassium, serum 3.9 mmol/L 3.5-5.2 chloride, serum [...] 1.80 ng/mL 0.00-4.00 Lab Report: VITAMIN D, 25-HYDROXY/64114 - Chemistry vitamin D 25-hydroxy, serum 25 ng/mL 30-100 Encounters Code Encounter Date Provider Facility CPT-74718 Level 3 Est. Patient 16:04:17 CDT Robbie Busby MD [facility] CPT-53329 Level 4 Est. Patient 09:50:01 PUBLIC ADDRESS SYSTEM INSTALLER Robbie Busby MD [facility] CPT-23387 Level 4 Est. Patient 09:42:08 PUBLIC ADDRESS SYSTEM INSTALLER Robbie Busby MD [facility] CPT-06310 Level 4 Est. Patient 13:07:39 PUBLIC ADDRESS SYSTEM INSTALLER Robbie Busby MD [facility] CPT-20989 Level 4 Est. Patient 15:23:44 PUBLIC ADDRESS SYSTEM INSTALLER Desmond Diaz DO [facility] CPT-24654 Level 3 Est. Patient 15:40:49 CDT Robbie Busby MD [facility] CPT-73428 Level 4 Est. Patient 15:18:19 CDT Robbie Busby MD [facility] CPT-34002 Level 3 Est. Patient 09:00:37 CDT Rober Rodolfoneha [facility] CPT-12894 Level 3 Est. Patient 16:07:10 CDT Robbie Busby MD [facility] CPT-22271 Level 4 Est. Patient 11:56:16 CDT Erin Miguelzane [facility] CPT-55857 Level 3 Est. Patient 17:48:02 CDT Robbie Busby MD [facility] CPT-70590 Level 4 Est. Patient 12:00:49 PUBLIC ADDRESS SYSTEM INSTALLER Rober Rodríguez [facility] CPT-87633 Level 3 Est. Patient 09:16:37 CDT Robbie Busby MD [facility] CPT-05279 Level 3 Est. Patient 19:38:43 CDT Robbie Busby MD [facility] CPT-00344 Level 3 Est. Patient 11:53:38 CDT Robbie Busby MD [facility] CPT-22514 Level 4 Est. Patient 12:52:22 CDT Rober Rodríguez [facility] CPT-62867 Level 4 Est. Patient 22:55:17 CDT Robbie Busby MD [facility] CPT-59221 Level 3 Est. Patient 12:38:24 CDT Desmond Diaz DO [facility] CPT-26272 Level 4 Est. Patient 11:25:03 PUBLIC ADDRESS SYSTEM INSTALLER Robbie Busby MD [facility] CPT-61853 Level 4 Est. Patient 14:50:10 CDT Robbie Busby MD [facility] CPT-82969 Level 4 Est. Patient 23:30:43 CDT Robbie Busby MD [facility] CPT-80343 Level 4 Est. Patient 10:30:43 CDT Robbie Busby MD [facility] CPT-64244 Level 3 Est. Patient 17:08:12 CDT Alex ALVAREZ [facility] CPT-15702 Level 4 Est. Patient 17:51:38 CDT Robbie Busby MD [facility] CPT-91257 Level 4 Est. Patient 14:00:21 CDT Robbie Busby MD [facility] CPT-75690 Level 4 Est. Patient 12:46:48 CDT Robbie Busby MD [facility] CPT-85275 Level 4 Est. Patient 13:34:33 CDT Robbie Busby MD [facility] CPT-41358 Level 4 Est. Patient 16:58:28 CDT Robbie Busby MD [facility] CPT-66906 Level 3 Est. Patient 19:36:53 CDT Alex Shaw [facility] CPT-87243 Level 3 Est. Patient 12:58:15 CDT Robbie Busby MD [facility] Procedures Code Procedure Name Date Entry Date Standard Description CPT-J1100 Decadron 8mg (Dexamethasone) 16:04:17 CDT CPT-J1040 Depo Medrol 80 mg (Methyl Prednisolone Acetate) 16:04: 17 CDT CPT-J1071 Depo Testosterone 200mg 08:56:46 CDT CPT-92120 Abx/Therapy Injection 08:56:45 CDT CPT-J1071 Depo Testosterone 200mg 08:26:27 CDT CPT-83133 Abx/Therapy Injection 08:26:27 CDT CPT-J1071 Depo Testosterone 200mg 10:27:10 CDT CPT-78259 Abx/Therapy Injection 10:27:10 CDT CPT-J1071 Depo Testosterone 200mg 16:10:29 PUBLIC ADDRESS SYSTEM INSTALLER CPT-53128 Abx/Therapy Injection 16:10:29 PUBLIC ADDRESS SYSTEM INSTALLER CPT-J1071 Depo Testosterone 200mg 16:13:47 PUBLIC ADDRESS SYSTEM INSTALLER CPT-11542 Abx/Therapy Injection 16:13:46 PUBLIC ADDRESS SYSTEM INSTALLER CPT-J1071 Depo Testosterone 200mg 15:33:58 PUBLIC ADDRESS SYSTEM INSTALLER CPT-15344 Abx/Therapy Injection 15:33:58 PUBLIC ADDRESS SYSTEM INSTALLER CPT-J1071 Depo Testosterone 200mg 09:38:36 PUBLIC ADDRESS SYSTEM INSTALLER CPT-00651 Abx/Therapy Injection 09:38:36 PUBLIC ADDRESS SYSTEM INSTALLER CPT-J1071 Depo Testosterone 200mg 10:22:56 PUBLIC ADDRESS SYSTEM INSTALLER CPT-30524 Abx/Therapy Injection 10:22:56 PUBLIC ADDRESS SYSTEM INSTALLER CPT-J1071 Depo Testosterone 200mg 15:40:23 CDT CPT-60308 Abx/Therapy Injection 15:40:23 CDT CPT-J1071 Depo Testosterone 200mg 14:20:43 CDT CPT-00054 Abx/Therapy Injection 14:20:43 CDT CPT-J1071 Depo Testosterone 200mg 14:17:22 CDT CPT-34591 Abx/Therapy Injection 14:17:22 CDT CPT-J1071 Depo Testosterone 200mg 09:03:53 CDT CPT-14401 Abx/Therapy Injection 09:03:53 CDT CPT-G0439 Subsequent Annual Wellness Exam 16:47:44 CDT CPT-J1071 Depo Testosterone 200mg 09:06:28 CDT CPT-47469 Abx/Therapy Injection 09:06:28 CDT CPT-J1071 Depo Testosterone 200mg 08:30:01 CDT CPT-94201 Abx/Therapy Injection 08:30:01 CDT CPT-J1071 Depo Testosterone 200mg 08:24:00 CDT CPT-25916 Abx/Therapy Injection 08:24:00 CDT CPT-67145 Venipuncture Draw Fee 14:39:06 CDT CPT-00006 Ribs unilateral 2V - XRAY USE ONLY 12:10:11 CDT CPT-86689 First Vx - Ix admin for Medicare patients 16:32:53 CDT CPT-39107 Boostrix Intramuscular Suspension 5-2.5-18.5 16:32:53 CDT CPT-88704 TB Skin Test 11:42:28 CDT CPT-71487 Tdap 7yrs or > 11:42:28 CDT CPT-J0696 Rocephin 1000 mg (Ceftriaxone) 17:43:43 PUBLIC [employer]DRESS SYSTEM INSTALLER CPT-J1040 Depo Medrol 80 mg (Methyl Prednisolone Acetate) 17:43: 43 PUBLIC ADDRESS SYSTEM INSTALLER CPT-J1100 Decadron 8mg (Dexamethasone) 17:43:42 PUBLIC ADDRESS SYSTEM INSTALLER CPT-01297 Abx/Therapy Injection 17:43:42 [employer]ESS SYSTEM IN[employer]ER CPT-65912 Abx/Therapy Injection 17:43:42 PUBLIC [employer]ESS SYSTEM IN[employer]ER CPT-J1040 Depo Medrol 80 mg (Methyl Prednisolone Acetate) 09:43: 34 PUBLIC [employer]ESS SYSTEM INST[employer]ER CPT-J1100 Decadron 8mg (Dexamethasone) 09:43:34 PUBLIC [employer]ESS SYSTEM INST[employer]ER CPT-J0696 Rocephin 1gm Inj Solr 09:43:34 PUBLIC [employer]ESS SYSTEM INST[employer]ER CPT-95001 Wound Culture - LAB USE ONLY 14:00:21 CDT CPT-I/D I/D Abscess 09:16:37 CDT CPT-16628 Venipuncture Draw Fee 15:20:23 CDT CPT-71762 Microalbumin - LAB USE ONLY 16:02:19 CDT CPT-76416 CBC - LAB USE ONLY 16:02:19 CDT CPT-15307 Venipuncture Draw Fee 16:02:19 CDT CPT-G0438 Initial Annual Wellness Exam 08:10:28 CDT CPT-67048 Venipuncture Draw Fee 13:07:17 CDT CPT-G0008 Administration of Influenza Virus Vaccine 16:09:59 CDT CPT-90418 Fluzone Quadrivalent Intramuscular Suspension 0.5 ML 16: 09:59 CDT CPT-48035 Spec Collection and Handling Fee 15:05:50 CDT
--- OUTSIDE RECORDS SUMMARY | 2018-04-18 12:11 | XMS REPORT | Clinical Summary ---
Author Author Admin, Nicolas Organization [facility] Address Unknown Phone Unavailable Allergies, Adverse Reactions, [...] tablet once daily for 2 days PREDNISONE 04543280502 No Longer Active Robbie Busby MD Active CEFDINIR 300 MG ORAL CAPS Take 1 cap po bid x 10 days CEFDINIR 21102675102 No Longer Active Robbie Busby MD Active NYSTATIN 003345 UNIT/ML M/T SUSP 5mL po QID x 10 days NYSTATIN 71138430248 Active Gali Negro Active AMLODIPINE BESYLATE 10 MG TABS 1 tablet by mouth daily AMLODIPINE BESYLATE 26646103438 Active Robbie Busby MD Active CARVEDILOL 25 MG TABS 1 & 1/2 TAB po BID CARVEDILOL 33945922250 Active Robbie Busby MD Active VITAMIN D3 93032 UNIT CAPS 2 CAPS PO WEEKLY CHOLECALCIFEROL 22559375798 Active Erin Garsia RN RADIATION ONCOLOGY Active NEXIUM 40 MG CPDR 1 cap by mouth daily ESOMEPRAZOLE MAGNESIUM 36864103927 Active Gali Negro Active PROTONIX 40 MG SOLR 1 po qday for acid reflux PANTOPRAZOLE SODIUM 95878294313 No Longer Active Galileonila Negro Active BETADINE 10 % EXT SOLN wash with solution to treat follicultis POVIDONE-IODINE 62427264286 Active Robbie Busby MD Active KEFLEX 500 MG CAP 1 po TID x 10 days CEPHALEXIN 79490610047 No Longer Active Robbie Busby MD Active FIORICET 50-300-40 MG ORAL CAPS take 1 tab po qday prn migraines. [id number] 18518531424 Active Robbie Busby MD Active TOPIRAMATE 50 MG ORAL TABS take 1 tab po BID for migraines. TOPIRAMATE 01058766119 Active Robbie Busby MD Active HYDRALAZINE HCL 50 MG ORAL TABS TWO BY MOUTH THREE TIMES DAILY HYDRALAZINE HCL 86399701598 Active Robbie Busby MD Active MECLIZINE HCL 25 MG TAB one 4 times a day as needed for dizziness MECLIZINE HCL 26779769648 Active Robbie Busby MD Active TRILEPTAL 150 MG ORAL TABS 1 TAB PO Q HS OXCARBAZEPINE 85721179935 Active Robbie Busby MD Active TEMAZEPAM 15 MG ORAL CAPS 1 TAB PO Q HS TEMAZEPAM 31993877818 Active Robbie Busby MD Active ALPRAZOLAM 2 MG ORAL TABS 1 TAB PO BID ALPRAZOLAM 28958484499 Active Robbie Busby MD Active FENOFIBRATE 145 MG TABS Take one by mouth daily FENOFIBRATE 99653824875 No Longer Active Robbie Busby MD Active LAMISIL 125 MG ORAL PACK 1 TAB PO DAILY TERBINAFINE HCL 21743830711 Active Robbie Busby MD Active SPIRONOLACTONE 50 MG TABS 1 tablet by mouth twice a day SPIRONOLACTONE 60128245227 No Longer Active Robbie Busby MD Active HYDRALAZINE HCL 25 MG TABS 1 tablet by mouth tid for hypertension HYDRALAZINE HCL 88302747644 No Longer Active Robbie Busby MD Active VIIBRYD 40 MG TABS take 1 tab po qday for depression. VILAZODONE HCL 80069275011 No Longer Active Robbie Busby MD Active TERBINAFINE HCL 250 MG TABS 1 tab po qday for foot infection 2014 TERBINAFINE HCL 77978139595 No Longer Active Robbie Busby MD Active GABAPENTIN 300 MG CAPS 1 po q hs for nerve pain GABAPENTIN 18625932951 Active Robbie Busby MD Active FLONASE 50 MCG/ACT SUSP 1 spray each nostril twice daily for allergies and runny nose FLUTICASONE PROPIONATE 70605247177 Active Robbie Busby MD Active CHERATUSSIN AC 100-10 MG/5ML ORAL SOLN 7.5 mL PO q 4-6 hrs PRN cough GUAIFENESIN-CODEINE 75274563214 No Longer Active Robbie Busby MD Active AZITHROMYCIN 250 MG ORAL TABS 2 tablets PO today---then, 1 tablet PO daily x 4 more days (and 1 optional refill) AZITHROMYCIN 05618033994 No Longer Active Robbie Busby MD Active CLONIDINE HCL 0.2 MG ORAL TABS 1 TAB BY MOUTH EVERY 8 HOURS CLONIDINE HCL 00947409878 Active Robbie Busby MD Active HYDROCHLOROTHIAZIDE TABS Take one by mouth daily HYDROCHLOROTHIAZIDE TABS 73274538322 Active Aelx ALVAREZ Active NORVASC 10 MG TAB 1 tablet by mouth daily AMLODIPINE BESYLATE 08965225629 No Longer Active Alex ALVAREZ Active IMDUR 60 MG TAB CR take 1 tab po qday for blood pressure ISOSORBIDE MONONITRATE Active Robbie Busby MD Active ISOSORBIDE DINITRATE 30 MG TABS Take one by mouth daily ISOSORBIDE DINITRATE 24970900552 No Longer Active Robbie Busby MD Active VIIBRYD 40 MG TABS 1 TA B PO DAILY VILAZODONE HCL 99071619440 Active Erin Garsia APRN Active LORATADINE 10 MG TABS 1 tablet by mouth daily for congestion and allergies. LORATADINE 53428280835 Active Robbie Busby MD Active ZITHROMAX 250 MG TAB 2 po today, then 1 po q days 2-5 AZITHROMYCIN 12025701501 No Longer Active Robbie Busby MD Active HYDROCODONE-ACETAMINOPHEN 5-325 MG TABS 1 tab by mouth BID prn back pain 2013 HYDROCODONE-ACETAMINOPHEN 41986236744 Active Robbie Busby MD Active [id number]-2 0.3 MG/24HR PTWK apply 2 patches q week for HTN CLONIDINE HCL 27449454787 Active Robbie Busby MD Active NITROSTAT 0.4 MG SUBL PRN NITROGLYCERIN 34976989979 Active Robbie Busby MD Active DOXAZOSIN MESYLATE 4 MG TABS Take one by mouth daily DOXAZOSIN MESYLATE 47884886808 Active Robbie Busby MD Active TOPROL XL 200 MG [id number] Take one by mouth daily METOPROLOL SUCCINATE 95474205531 Active Robbie Busby MD Active VENLAFAXINE HCL ER 150 MG [id number] Take one by mouth daily VENLAFAXINE HCL 28193693675 Active Robbie Busby MD Active LIPITOR 40 MG TABS Take one by mouth daily ATORVASTATIN CALCIUM 63501496083 Active Robbie Busby MD Active ISOSORBIDE DINITRATE 30 MG TABS Take one by mouth daily ISOSORBIDE DINITRATE 30 MG TABS 518041 ISOSORBIDE DINITRATE Inactive NORVASC 10 MG TAB 1 tablet by mouth daily NORVASC 10 MG TAB 285026 AMLODIPINE BESYLATE Inactive AZITHROMYCIN 250 MG ORAL TABS 2 tablets PO today---then, 1 tablet PO daily x 4 more days (and 1 optional refill) AZITHROMYCIN 250 MG ORAL TABS 1229921 AZITHROMYCIN Inactive CHERATUSSIN AC 100-10 MG/5ML ORAL SOLN 7.5 mL PO q 4-6 hrs PRN cough CHERATUSSIN AC 100-10 MG/5ML ORAL SOLN 395713 GUAIFENESIN- CODEINE Inactive VIIBRYD 40 MG TABS take 1 tab po qday for depression. VIIBRYD 40 MG TABS VILAZODONE HCL Inactive HYDRALAZINE HCL 25 MG TABS 1 tablet by mouth tid for hypertension HYDRALAZINE HCL 25 MG TABS 331858 HYDRALAZINE HCL Inactive SPIRONOLACTONE 50 MG TABS 1 tablet by mouth twice a day SPIRONOLACTONE 50 MG TABS 724108 SPIRONOLACTONE Inactive FENOFIBRATE 145 MG TABS Take one by mouth daily FENOFIBRATE 145 MG TABS 038532 FENOFIBRATE Inactive PROTONIX 40 MG SOLR 1 po qday for acid reflux PROTONIX 40 MG SOLR 662307 PANTOPRAZOLE SODIUM Inactive CEFDINIR 300 MG ORAL CAPS Take 1 cap po bid x 10 days CEFDINIR 300 MG ORAL CAPS 547622 CEFDINIR Inactive PREDNISONE 20 MG TAB 1 tablet twice daily for 2 days, then 1 tablet once daily for 2 days PREDNISONE 20 MG TAB 633669 PREDNISONE Inactive ZITHROMAX 250 MG TAB 2 po today, then 1 po q days 2-5 ZITHROMAX 250 MG TAB 8834210 AZITHROMYCIN Inactive TERBINAFINE HCL 250 MG TABS 1 tab po qday for foot infection 2014 TERBINAFINE HCL 250 MG TABS 135028 TERBINAFINE HCL Inactive KEFLEX 500 MG CAP 1 po TID x 10 days KEFLEX 500 MG CAP 508221 CEPHALEXIN Inactive Vital Signs Date Name Value [...] Acid - Chemistry sodium, serum 139 mmol/L 821-643 0903/04/22 carbon dioxide, venous blood 29.4 mmol/L 21.0-32.0 [...] PANEL - Chemistry cholesterol, serum 211 mg/dL 957-292 0177/08/31 triglyceride, serum, fasting 429 mg/dL 30-200 HDL [...] to Follow Negative Lab Report: VITAMIN D, 25-HYDROXY/37374 - Chemistry vitamin D 25-hydroxy, serum 23 ng/mL 30-100 Encounters Code Encounter Date Provider Facility CPT-58163 Level 4 Est. Patient 22:55:17 CDT Robbie Busby MD [facility] CPT-05376 Level 3 Est. Patient 12:38:24 CDT Desmond Diaz DO [facility] CPT-39919 Level 4 Est. Patient 11:25:03 [employer]A SOFTWARE TE[employer] Robbie Busby MD [facility] CPT-85701 Level 4 Est. Patient 14:50:10 CDT Robbie Busby MD [facility] CPT-70722 Level 4 Est. Patient 23:30:43 CDT Robbie Busby MD [facility] CPT-00937 Level 4 Est. Patient 10:30:43 CDT Robbie Busby MD [facility] CPT-73369 Level 3 Est. Patient 17:08:12 CDT Alex ALVAREZ [facility] CPT-99814 Level 4 Est. Patient 17:51:38 CDT Robbie Busby MD [facility] CPT-10413 Level 4 Est. Patient 14:00:21 CDT Robbie Busby MD [facility] CPT-03850 Level 4 Est. Patient 12:46:48 CDT Robbie Busby MD [facility] CPT-68497 Level 4 Est. Patient 13:34:33 CDT Robbie Busby MD [facility] CPT-72101 Level 4 Est. Patient 16:58:28 CDT Robbie Busby MD [facility] CPT-70208 Level 3 Est. Patient 19:36:53 CDT Alex ALVAREZ [facility] CPT-36298 Level 3 Est. Patient 12:58:15 CDT Robbie Busby MD [facility] Procedures Code Procedure Name Date Entry Date Standard Description CPT-10877 Venipuncture Draw Fee 13:07:17 CDT CPT-G0008 Administration of Influenza Virus Vaccine 16:09:59 CDT CPT-76266 Fluzone Quadrivalent Intramuscular Suspension 0.5 ML 16: 09:59 CDT CPT-95168 Spec Collection and Handling Fee 15:05:50 CDT
--- OUTSIDE RECORDS SUMMARY | 2018-04-18 12:12 | XMS REPORT | Clinical Summary ---
Author Author Admin, AKUA Organization [facility] Address Unknown Phone Unavailable Allergies, Adverse [...] day as needed for dizziness MECLIZINE HCL 62203596729 Active Robbie Busby MD Active TRILEPTAL 150 MG ORAL TABS 1 TAB PO Q HS OXCARBAZEPINE 91729585785 Active Robbie Busby MD Active TEMAZEPAM 15 MG ORAL CAPS 1 TAB PO Q HS TEMAZEPAM 18096487216 Active Robbie Busby MD Active ALPRAZOLAM 2 MG ORAL TABS 1 TAB PO BID ALPRAZOLAM 00406144649 Active Robbie Busby MD Active FENOFIBRATE 145 MG TABS Take one by mouth daily FENOFIBRATE 30855075514 No Longer Active Robbie Busby MD Active LAMISIL 125 MG ORAL PACK 1 TAB PO DAILY TERBINAFINE HCL 36135192439 Active Robbie Busby MD Active SPIRONOLACTONE 50 MG TABS 1 tablet by mouth twice a day SPIRONOLACTONE 97977820851 No Longer Active Robbie Busby MD Active HYDRALAZINE HCL 25 MG TABS 1 tablet by mouth tid for hypertension HYDRALAZINE HCL 34719788053 No Longer Active Robbie Busby MD Active VIIBRYD 40 MG TABS take 1 tab po qday for depression. VILAZODONE HCL 23278496296 No Longer Active Robbie Busby MD Active TERBINAFINE HCL 250 MG TABS 1 tab po qday for foot infection 2014 TERBINAFINE HCL 41359320543 No Longer Active Robbie Busby MD Active GABAPENTIN 300 MG CAPS 1 po q hs for nerve pain GABAPENTIN 99555530517 Active Robbie Busby MD Active FLONASE 50 MCG/ACT SUSP 1 spray each nostril twice daily for allergies and runny nose FLUTICASONE PROPIONATE 52178865235 Active Robbie Busby MD Active CHERATUSSIN AC 100-10 MG/5ML ORAL SOLN 7.5 mL PO q 4-6 hrs PRN cough GUAIFENESIN-CODEINE 88417881949 No Longer Active Robbie Busby MD Active AZITHROMYCIN 250 MG ORAL TABS 2 tablets PO today---then, 1 tablet PO daily x 4 more days (and 1 optional refill) AZITHROMYCIN 41505739429 No Longer Active Robbie Busby MD Active CLONIDINE HCL 0.2 MG ORAL TABS 1 TAB BY MOUTH EVERY 8 HOURS CLONIDINE HCL 33716373097 Active Robbie Busby MD Active HYDROCHLOROTHIAZIDE TABS Take one by mouth daily HYDROCHLOROTHIAZIDE TABS 52126517792 Active Alex ALVAREZ Active NORVASC 10 MG TAB 1 tablet by mouth daily AMLODIPINE BESYLATE 18864096976 No Longer Active Alex ALVAREZ Active PROTONIX 40 MG SOLR 1 po qday for acid reflux PANTOPRAZOLE SODIUM 96796935646 Active Robbie Busby MD Active IMDUR 60 MG TAB CR take 1 tab po qday for blood pressure ISOSORBIDE MONONITRATE Active Robbie Busby MD Active ISOSORBIDE DINITRATE 30 MG TABS Take one by mouth daily ISOSORBIDE DINITRATE 59323306582 No Longer Active Robbie Busby MD Active VIIBRYD 40 MG TABS 1 TA B PO DAILY VILAZODONE HCL 04008949938 Active Robbie Busby MD Active LORATADINE 10 MG TABS 1 tablet by mouth daily for congestion and allergies. LORATADINE 94622956732 Active Robbie Busby MD Active ZITHROMAX 250 MG TAB 2 po today, then 1 po q days 2-5 AZITHROMYCIN 95026213862 No Longer Active Robbie Busby MD Active HYDROCODONE-ACETAMINOPHEN 5-325 MG TABS 1 tab by mouth BID prn back pain 2013 HYDROCODONE-ACETAMINOPHEN 57695196999 Active Robbie Busby MD Active HYDRALAZINE HCL 50 MG TABS take 1 tab po QID for high blood pressure HYDRALAZINE HCL 02523742996 Active Robbie Busby MD Active GNYOIKPC-GEW-1 0.3 MG/24HR PTWK apply 2 patches q week for HTN CLONIDINE HCL 68334709867 Active Alexa Menon MD PhD Active NITROSTAT 0.4 MG SUBL PRN NITROGLYCERIN 52904640978 Active Robbie Busby MD Active DOXAZOSIN MESYLATE 4 MG TABS Take one by mouth daily DOXAZOSIN MESYLATE 31015996743 Active Robbie Busby MD Active TOPROL XL 200 MG [id number] Take one by mouth daily METOPROLOL SUCCINATE 16175473498 Active Robbie Busby MD Active VENLAFAXINE HCL ER 150 MG [id number] Take one by mouth daily VENLAFAXINE HCL 18494439495 Active Robbie Busby MD Active LIPITOR 40 MG TABS Take one by mouth daily ATORVASTATIN CALCIUM 64218971823 Active Robbie Busby MD Active ISOSORBIDE DINITRATE 30 MG TABS Take one by mouth daily ISOSORBIDE DINITRATE 30 MG TABS 414105 ISOSORBIDE DINITRATE Inactive NORVASC 10 MG TAB 1 tablet by mouth daily NORVASC 10 MG TAB 923696 AMLODIPINE BESYLATE Inactive AZITHROMYCIN 250 MG ORAL TABS 2 tablets PO today---then, 1 tablet PO daily x 4 more days (and 1 optional refill) AZITHROMYCIN 250 MG ORAL TABS 5412698 AZITHROMYCIN Inactive CHERATUSSIN AC 100-10 MG/5ML ORAL SOLN 7.5 mL PO q 4-6 hrs PRN cough CHERATUSSIN AC 100-10 MG/5ML ORAL SOLN 092479 GUAIFENESIN- CODEINE Inactive VIIBRYD 40 MG TABS take 1 tab po qday for depression. VIIBRYD 40 MG TABS VILAZODONE HCL Inactive HYDRALAZINE HCL 25 MG TABS 1 tablet by mouth tid for hypertension HYDRALAZINE HCL 25 MG TABS 694885 HYDRALAZINE HCL Inactive SPIRONOLACTONE 50 MG TABS 1 tablet by mouth twice a day SPIRONOLACTONE 50 MG TABS 892191 SPIRONOLACTONE Inactive FENOFIBRATE 145 MG TABS Take one by mouth daily FENOFIBRATE 145 MG TABS 633304 FENOFIBRATE Inactive ZITHROMAX 250 MG TAB 2 po today, then 1 po q days 2-5 ZITHROMAX 250 MG TAB 3101442 AZITHROMYCIN Inactive TERBINAFINE HCL 250 MG TABS 1 tab po qday for foot infection 2014 TERBINAFINE HCL 250 MG TABS 965781 TERBINAFINE HCL Inactive Vital Signs Date Name Value Unit Range Description blood pressure, diastolic - 8462-4 130 mm[Hg] [...] mg/dL Chart Maintenance: Outside labs entered on [employer] - Hematology leukocyte count, blood 8.9 10*3/mm3 hemoglobin, blood 14.0 g/dL platelet count 285 10*3/mm3 Lab Report: CBC, Comp. Metabolic Panel - Chemistry sodium, serum 141 mmol/L 565-928 9200/12/05 potassium, serum 4.0 mmol/L 3.5-5.2 chloride, serum [...] 0.60-1.30 Encounters Code Encounter Date Provider Facility CPT-08696 Level 4 Est. Patient 23:30:43 CDT Robbie Busby MD [facility] CPT-39228 Level 4 Est. Patient 10:30:43 CDT Robbie Busby MD [facility] CPT-37903 Level 3 Est. Patient 17:08:12 CDT Alex ALVAREZ [facility] CPT-96757 Level 4 Est. Patient 17:51:38 CDT Robbie Busby MD [facility] CPT-33021 Level 4 Est. Patient 14:00:21 CDT Robbie Busby MD [facility] CPT-91316 Level 4 Est. Patient 12:46:48 CDT Robbie Busby MD [facility] CPT-65699 Level 4 Est. Patient 13:34:33 CDT Robbie Busby MD [facility] CPT-79888 Level 4 Est. Patient 16:58:28 CDT Robbie Busby MD [facility] CPT-33940 Level 3 Est. Patient 19:36:53 CDT Alex ALVAREZ [facility] CPT-74752 Level 3 Est. Patient 12:58:15 CDT Robbie Busby MD [facility] Procedures Code Procedure Name Date Entry Date Standard Description CPT-G0008 Administration of Influenza Virus Vaccine 16:09:59 CDT CPT-64670 Fluzone Quadrivalent Intramuscular Suspension 0.5 ML 16: 09:59 CDT CPT-86358 Spec Collection and Handling Fee 15:05:50 CDT
--- OUTSIDE RECORDS SUMMARY | 2018-04-18 12:13 | XMS REPORT | Clinical Summary ---
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 Desmond Diaz DO Other malignant secondary hypertension Tachycardia 785.0 Active Rober Rodríguez ICT ANALYST Tachycardia, unspecified Insect bite, infected 919.5 Resolved Desmond Diaz DO Insect bite, nonvenomous, of other, multiple, and unspecified sites, infected Abscess, skin 682.9 Resolved Desmond Diaz DO Cellulitis and abscess of unspecified sites URI 465.9 Resolved Desmond Diaz DO Acute upper respiratory infections of unspecified site Hypertension 401.9 Active Rober Rodríguez ICT ANALYST Unspecified essential hypertension Sinusitis - acute 461.9 [...] Hypogonadism, low testosterone 257.2 Active Erin Mai ICT ANALYST Other testicular hypofunction Low back pain, chronic [...] 37.0-37.9, adult Sinusitis ICD-461.9 Inactive Emily Atwood BILLING ASSISTANT 2017 Low back pain, acute ICD-724.2 Inactive Emily Atwood BILLING ASSISTANT Low back pain, chronic ICD-724.2 Inactive Emily Atwood BILLING ASSISTANT Bronchitis, acute ICD-466.0 Inactive Emily Atwood BILLING ASSISTANT Onychomycosis, toenails ICD-110.1 Inactive Emily Atwood BILLING ASSISTANT Dizziness ICD-780.4 Inactive Emily Atwood BILLING ASSISTANT 2017 Folliculitis ICD-704.8 Inactive Emily Atwood BILLING ASSISTANT Pharyngitis-Acute ICD-462 Inactive Emily Atwood BILLING ASSISTANT Fatigue ICD-780.79 Inactive Emily Atwood BILLING ASSISTANT 09/20 Hypertension, secondary, malignant ICD-405.09 Inactive Emily Atwood BILLING ASSISTANT Insect bite, infected ICD-919.5 Inactive Emily Atwood BILLING ASSISTANT Abscess, skin ICD-682.9 Inactive Emily Atwood BILLING ASSISTANT URI ICD-465.9 Inactive Emily Atwood BILLING ASSISTANT Sinusitis - acute ICD-461.9 Inactive Emily Atwood BILLING ASSISTANT Acute confusion ICD-293.0 Inactive Emily Atwood BILLING ASSISTANT Headache ICD-784.0 Inactive Emily Solisnae CISSE 09/20 [...] HOUR 1 po q day ISOSORBIDE MONONITRATE 17615857185 Active Emma Hernandez Active METOPROLOL SUCCINATE ER 200 MG ORAL TABLET EXTENDED RELEASE 24 HOUR take 1 tab po qday for high blood pressure and rapid pulse METOPROLOL SUCCINATE 95821086768 Active Robbie Busby MD Active [id number] 0.3 MG/24HR TRANSDERMAL PATCH WEEKLY apply 2 patches q week for HTN CLONIDINE HCL 49198584950 No Longer Active Robbie Busby MD Active IMDUR 60 MG ORAL TABLET EXTENDED RELEASE 24 HOUR take 1 tab po qday for blood pressure ISOSORBIDE MONONITRATE 88196543631 No Longer Active Robbie Busby MD Active TEMAZEPAM 15 MG ORAL CAPSULE 1 TAB PO Q HS TEMAZEPAM 54434509734 No Longer Active Robbei Busby MD Active TOPIRAMATE 50 MG ORAL TABLET 1 po BID for migraines TOPIRAMATE 76926181065 No Longer Active Robbie Busby MD Active CYCLOBENZAPRINE HCL 10 MG ORAL TABLET 1 tablet by mouth three times daily as needed for muscle spasm/pain CYCLOBENZAPRINE HCL 48998464607 No Longer Active Robbie Busby MD Active TOPROL XL 200 MG ORAL TABLET EXTENDED RELEASE 24 HOUR Take one by mouth daily METOPROLOL SUCCINATE 02837728140 No Longer Active Robbie Busby MD Active METFORMIN HCL 500 MG ORAL TABLET 1 tablet by mouth daily for diabetes type 2 METFORMIN HCL 99135541009 Active Robbie Busby MD Active SINGULAIR 10 MG ORAL TABLET 1 po qday for allergies. MONTELUKAST SODIUM 18148833609 No Longer Active Robbie Busby MD Active PREDNISONE 20 MG ORAL TABLET two tabs by mouth today, then one tab by mouth days two and three PREDNISONE 75836173969 No Longer Active Robbie Busby MD Active AZITHROMYCIN 250 MG ORAL TABLET 2 po qd x 1 day, then 1 po qd x 4 days 09/20 AZITHROMYCIN 72929038268 No Longer Active Desmond Diaz DO Active TOPIRAMATE 50 MG ORAL TABLET take 1 tab po BID for migraines. TOPIRAMATE 40691347944 No Longer Active Desmond Diaz DO Active CYCLOBENZAPRINE HCL 10 MG ORAL TABLET 1 po TID PRN muscle spasm/pain for 10 days CYCLOBENZAPRINE HCL 63855617040 No Longer Active Desmond Diaz DO Active GUAIFENESIN ER 600 MG ORAL TABLET EXTENDED RELEASE 12 HOUR 1 tab po q am 2016 GUAIFENESIN 54310229329 No Longer Active Robbie Busby MD Active DIVALPROEX SODIUM ER 500 MG ORAL TABLET EXTENDED RELEASE 24 HOUR Once daily DIVALPROEX SODIUM 31660266899 Active Robbie Busby MD Active DEPO-TESTOSTERONE 200 MG/ML INTRAMUSCULAR SOLUTION 1 IM Injections every 2 weeks for low testosterone TESTOSTERONE CYPIONATE 58520043456 Active Zulema Blank LPN Active FLUTICASONE PROPIONATE 50 MCG/ACT NASAL SUSPENSION 2 sprays per nostril bid for 1 week, then 1 spray bid FLUTICASONE PROPIONATE 25880854877 Active Rober Rodríguez APRN Active HYDRALAZINE HCL 25 MG ORAL TABLET Take 1 tab BID. HYDRALAZINE HCL 98165578902 Active Rober Rodríguez APRN Active VITAMIN D3 30368 UNIT ORAL TABLET 2 po weekly CHOLECALCIFEROL 91216164103 Active Robbie Busby MD Active OXYCODONE HCL ER 10 MG ORAL TABLET ER 12 HOUR ABUSE-DETERRENT 1 tab po 3 times qd. OXYCODONE HCL 65599678342 Active Robbie Busby MD Active NITROSTAT 0.4 MG SUBLINGUAL TABLET SUBLINGUAL PRN NITROGLYCERIN 92675420610 No Longer Active Robbie Busby MD Active LORATADINE 10 MG ORAL TABLET 1 tablet by mouth daily for congestion and allergies. LORATADINE 20496057430 No Longer Active Robbie Busby MD Active FLONASE 50 MCG/ACT NASAL SUSPENSION 1 spray each nostril twice daily for allergies and runny nose FLUTICASONE PROPIONATE 38711576695 No Longer Active Robbie Busby MD Active FIORICET 50-300-40 MG ORAL CAPSULE take 1 tab po qday prn migraines. [id number]-[id number] 97825647427 No Longer Active Robbie Busby MD Active VITAMIN D3 12151 UNIT ORAL CAPSULE 2 CAPS PO WEEKLY CHOLECALCIFEROL 84469989250 No Longer Active Robbie Busby MD Active CYCLOBENZAPRINE HCL 10 MG ORAL TABLET 1 tablet by mouth three times daily as needed for muscle spasm/pain for 10 days CYCLOBENZAPRINE HCL 23771776619 No Longer Active Robbie Busby MD Active PREDNISONE 20 MG ORAL TABLET take 3 tabs daily for 3 days, 2 tabs daily for 3 days, 1 tab daily for 3 days, 1/2 tab daily for 4 days PREDNISONE 93465829597 No Longer Active Erin Mai APRN Active CLONIDINE HCL 0.2 MG ORAL TABLET 1 TAB BY MOUTH EVERY 8 HOURS CLONIDINE HCL 76584341416 No Longer Active Erin Mai APRN Active MECLIZINE HCL 25 MG ORAL TABLET one 4 times a day as needed for dizziness MECLIZINE HCL 92401020897 No Longer Active Erin Mai APRN Active SPIRONOLACTONE 25 MG ORAL TABLET 4 tablets by mouth daily SPIRONOLACTONE 40075361247 No Longer Active Erin Riverall ICT ANALYST Active LEVAQUIN 500 MG ORAL TABLET 1 tablet by mouth daily for 7 days LEVOFLOXACIN 65257193372 No Longer Active Erin Mai ICT ANALYST Active BACTRIM DS 800-160 MG ORAL TABLET 1 tab by mouth twice daily 2015 TRIMETHOPRIM-SULFAMETHOXAZOLE 66034966231 No Longer Active Robbie Busby MD Active HYDRALAZINE HCL 50 MG ORAL TABLET TWO BY MOUTH THREE TIMES DAILY HYDRALAZINE HCL 34138104489 No Longer Active Andrellina Frazell ICT ANALYST Active HYDROCODONE-ACETAMINOPHEN 5-325 MG ORAL TABLET 1 tab by mouth BID prn back pain HYDROCODONE-ACETAMINOPHEN 55963426978 No Longer Active Jillina Frazell ICT ANALYST Active HYDROCHLOROTHIAZIDE TABLET Take one by mouth daily HYDROCHLOROTHIAZIDE TABS 83061582081 No Longer Active Jillina Frazell ICT ANALYST Active LAMISIL 125 MG ORAL PACKET 1 TAB PO DAILY TERBINAFINE HCL 33608249433 No Longer Active Jillina Frazell ICT ANALYST Active TRILEPTAL 150 MG ORAL TABLET 1 TAB PO Q HS OXCARBAZEPINE 22528645070 No Longer Active Jillina Frazell ICT ANALYST Active BETADINE 10 % EXTERNAL SOLUTION wash with solution to treat follicultis 07/29 POVIDONE-IODINE 16710320731 No Longer Active Jillina Frazell ICT ANALYST Active NYSTATIN 698853 UNIT/ML MOUTH/THROAT SUSPENSION 5mL po QID x 10 days NYSTATIN 98260780701 No Longer Active Erin Mai ICT ANALYST Active PREDNISONE 20 MG ORAL TABLET 1 tablet twice daily for 2 days, then 1 tablet once daily for 2 days PREDNISONE 80090978726 No Longer Active Robbie Busby MD Active CEFDINIR 300 MG ORAL CAPSULE Take 1 cap po bid x 10 days CEFDINIR 56283963451 No Longer Active Robbie Busby MD Active AMLODIPINE BESYLATE 10 MG ORAL TABLET 1 tablet by mouth daily AMLODIPINE BESYLATE 52330252882 Active Robbie Busby MD Active CARVEDILOL 25 MG ORAL TABLET 1 & 1/2 TAB po BID CARVEDILOL 09253750391 Active Robbie Busby MD Active NEXIUM 40 MG ORAL CAPSULE DELAYED RELEASE 1 cap by mouth daily ESOMEPRAZOLE MAGNESIUM 85988604061 Active Robbie Busby MD Active PROTONIX 40 MG INTRAVENOUS SOLUTION RECONSTITUTED 1 po qday for acid reflux PANTOPRAZOLE SODIUM 15502422794 No Longer Active Galileonila Negro Active KEFLEX 500 MG ORAL CAPSULE 1 po TID x 10 days CEPHALEXIN 94410456711 No Longer Active Robbie Busby MD Active ALPRAZOLAM 2 MG ORAL TABLET 1 TAB PO BID ALPRAZOLAM 95280331434 Active Robbie Busby MD Active FENOFIBRATE 145 MG ORAL TABLET Take one by mouth daily FENOFIBRATE 63262961285 No Longer Active Robbie Busby MD Active SPIRONOLACTONE 50 MG ORAL TABLET 1 tablet by mouth twice a day SPIRONOLACTONE 28946799274 No Longer Active Robbie Busby MD Active HYDRALAZINE HCL 25 MG ORAL TABLET 1 tablet by mouth tid for hypertension 2013 HYDRALAZINE HCL 21978402281 No Longer Active Robbie Busby MD Active VIIBRYD 40 MG ORAL TABLET take 1 tab po qday for depression. 2014 VILAZODONE HCL 25720334188 No Longer Active Robbie Busby MD Active TERBINAFINE HCL 250 MG ORAL TABLET 1 tab po qday for foot infection TERBINAFINE HCL 38683481203 No Longer Active Robbie Busby MD Active GABAPENTIN 300 MG ORAL CAPSULE 1 po q hs for nerve pain GABAPENTIN 75018387547 Active Robbie Busby MD Active CHERATUSSIN AC 100-10 MG/5ML ORAL SOLUTION 7.5 mL PO q 4-6 hrs PRN cough 2014 GUAIFENESIN-CODEINE 51934273881 No Longer Active Robbie Busby MD Active AZITHROMYCIN 250 MG ORAL TABLET 2 tablets PO today---then, 1 tablet PO daily x 4 more days (and 1 optional refill) AZITHROMYCIN 20010658964 No Longer Active Robbie Busby MD Active NORVASC 10 MG ORAL TABLET 1 tablet by mouth daily AMLODIPINE BESYLATE 90559219736 No Longer Active Alex ALVAREZ Active ISOSORBIDE DINITRATE 30 MG ORAL TABLET Take one by mouth daily ISOSORBIDE DINITRATE 74812537462 No Longer Active Robbie Busby MD Active VIIBRYD 40 MG ORAL TABLET 1 TA B PO DAILY VILAZODONE HCL 23012279687 Active Robbie Busby MD Active ZITHROMAX 250 MG ORAL TABLET 2 po today, then 1 po q days 2-5 AZITHROMYCIN 67796154063 No Longer Active Robbie Busby MD Active DOXAZOSIN MESYLATE 4 MG ORAL TABLET Take one by mouth daily DOXAZOSIN MESYLATE 86090268959 Active Robbie Busby MD Active VENLAFAXINE HCL ER 150 MG ORAL TABLET EXTENDED RELEASE 24 HOUR Take one by mouth daily VENLAFAXINE HCL 36638394396 Active Robbie Busby MD Active LIPITOR 40 MG ORAL TABLET Take one by mouth daily ATORVASTATIN CALCIUM 91725835068 Active Robbie Busby MD Active ISOSORBIDE DINITRATE 30 MG ORAL TABLET Take one by mouth daily ISOSORBIDE DINITRATE 30 MG ORAL TABLET 435963 ISOSORBIDE DINITRATE Inactive NORVASC 10 MG ORAL TABLET 1 tablet by mouth daily NORVASC 10 MG ORAL TABLET 268718 AMLODIPINE BESYLATE Inactive AZITHROMYCIN 250 MG ORAL TABLET 2 tablets PO today---then, 1 tablet PO daily x 4 more days (and 1 optional refill) AZITHROMYCIN 250 MG ORAL TABLET 447069 AZITHROMYCIN Inactive CHERATUSSIN AC 100-10 MG/5ML ORAL SOLUTION 7.5 mL PO q 4-6 hrs PRN cough 2014 CHERATUSSIN AC 100-10 MG/5ML ORAL SOLUTION 293047 GUAIFENESIN-CODEINE Inactive VIIBRYD 40 MG ORAL TABLET take 1 tab po qday for depression. 2014 VIIBRYD 40 MG ORAL TABLET VILAZODONE HCL Inactive HYDRALAZINE HCL 25 MG ORAL TABLET 1 tablet by mouth tid for hypertension 2013 HYDRALAZINE HCL 25 MG ORAL TABLET 355214 HYDRALAZINE HCL Inactive SPIRONOLACTONE 50 MG ORAL TABLET 1 tablet by mouth twice a day SPIRONOLACTONE 50 MG ORAL TABLET 881583 SPIRONOLACTONE Inactive FENOFIBRATE 145 MG ORAL TABLET Take one by mouth daily FENOFIBRATE 145 MG ORAL TABLET 136241 FENOFIBRATE Inactive PROTONIX 40 MG INTRAVENOUS SOLUTION RECONSTITUTED 1 po qday for acid reflux PROTONIX 40 MG INTRAVENOUS SOLUTION RECONSTITUTED 048917 PANTOPRAZOLE SODIUM Inactive CEFDINIR 300 MG ORAL CAPSULE Take 1 cap po bid x 10 days CEFDINIR 300 MG ORAL CAPSULE 563863 CEFDINIR Inactive PREDNISONE 20 MG ORAL TABLET 1 tablet twice daily for 2 days, then 1 tablet once daily for 2 days PREDNISONE 20 MG ORAL TABLET 636421 PREDNISONE Inactive NYSTATIN 130279 UNIT/ML MOUTH/THROAT SUSPENSION 5mL po QID x 10 days NYSTATIN 668118 UNIT/ML MOUTH/THROAT SUSPENSION 033944 NYSTATIN Inactive BETADINE 10 % EXTERNAL SOLUTION wash with solution to treat follicultis 07/29 BETADINE 10 % EXTERNAL SOLUTION 1001324 POVIDONE-IODINE Inactive TRILEPTAL 150 MG ORAL TABLET 1 TAB PO Q HS TRILEPTAL 150 MG ORAL TABLET 389031 OXCARBAZEPINE Inactive LAMISIL 125 MG ORAL PACKET 1 TAB PO DAILY LAMISIL 125 MG ORAL PACKET TERBINAFINE HCL Inactive HYDROCHLOROTHIAZIDE TABLET Take one by mouth daily HYDROCHLOROTHIAZIDE TABLET HYDROCHLOROTHIAZIDE TABS Inactive HYDROCODONE-ACETAMINOPHEN 5-325 MG ORAL TABLET 1 tab by mouth BID prn back pain HYDROCODONE-ACETAMINOPHEN 5-325 MG ORAL TABLET 362720 HYDROCODONE-ACETAMINOPHEN Inactive HYDRALAZINE HCL 50 MG ORAL TABLET TWO BY MOUTH THREE TIMES DAILY HYDRALAZINE HCL 50 MG ORAL TABLET 704711 HYDRALAZINE HCL Inactive LEVAQUIN 500 MG ORAL TABLET 1 tablet by mouth daily for 7 days LEVAQUIN 500 MG ORAL TABLET 705410 LEVOFLOXACIN Inactive SPIRONOLACTONE 25 MG ORAL TABLET 4 tablets by mouth daily SPIRONOLACTONE 25 MG ORAL TABLET 221966 SPIRONOLACTONE Inactive MECLIZINE HCL 25 MG ORAL TABLET one 4 times a day as needed for dizziness MECLIZINE HCL 25 MG ORAL TABLET 713548 MECLIZINE HCL Inactive CLONIDINE HCL 0.2 MG ORAL TABLET 1 TAB BY MOUTH EVERY 8 HOURS CLONIDINE HCL 0.2 MG ORAL TABLET 152708 CLONIDINE HCL Inactive CYCLOBENZAPRINE HCL 10 MG ORAL TABLET 1 tablet by mouth three times daily as needed for muscle spasm/pain for 10 days CYCLOBENZAPRINE HCL 10 MG ORAL TABLET 121475 CYCLOBENZAPRINE HCL Inactive VITAMIN D3 66828 UNIT ORAL CAPSULE 2 CAPS PO WEEKLY VITAMIN D3 98400 UNIT ORAL CAPSULE CHOLECALCIFEROL Inactive FIORICET 50-300-40 MG ORAL CAPSULE take 1 tab po qday prn migraines. FIORICET 50-300-40 MG ORAL CAPSULE 101252 BUTALBITAL-APAP- CAFFEINE Inactive FLONASE 50 MCG/ACT NASAL SUSPENSION 1 spray each nostril twice daily for allergies and runny nose FLONASE 50 MCG/ACT NASAL SUSPENSION 5974886 FLUTICASONE PROPIONATE Inactive LORATADINE 10 MG ORAL TABLET 1 tablet by mouth daily for congestion and allergies. LORATADINE 10 MG ORAL TABLET 283157 LORATADINE Inactive NITROSTAT 0.4 MG SUBLINGUAL TABLET SUBLINGUAL PRN NITROSTAT 0.4 MG SUBLINGUAL TABLET SUBLINGUAL 887188 NITROGLYCERIN Inactive GUAIFENESIN ER 600 MG ORAL TABLET EXTENDED RELEASE 12 HOUR 1 tab po q am 2016 GUAIFENESIN ER 600 MG ORAL TABLET EXTENDED RELEASE 12 HOUR GUAIFENESIN Inactive CYCLOBENZAPRINE HCL 10 MG ORAL TABLET 1 po TID PRN muscle spasm/pain for 10 days CYCLOBENZAPRINE HCL 10 MG ORAL TABLET 945747 CYCLOBENZAPRINE HCL Inactive TOPIRAMATE 50 MG ORAL TABLET take 1 tab po BID for migraines. TOPIRAMATE 50 MG ORAL TABLET 820974 TOPIRAMATE Inactive PREDNISONE 20 MG ORAL TABLET two tabs by mouth today, then one tab by mouth days two and three PREDNISONE 20 MG ORAL TABLET 388817 PREDNISONE Inactive TOPROL XL 200 MG ORAL TABLET EXTENDED RELEASE 24 HOUR Take one by mouth daily TOPROL XL 200 MG ORAL TABLET EXTENDED RELEASE 24 HOUR METOPROLOL SUCCINATE Inactive CYCLOBENZAPRINE HCL 10 MG ORAL TABLET 1 tablet by mouth three times daily as needed for muscle spasm/pain CYCLOBENZAPRINE HCL 10 MG ORAL TABLET 469666 CYCLOBENZAPRINE HCL Inactive TOPIRAMATE 50 MG ORAL TABLET 1 po BID for migraines TOPIRAMATE 50 MG ORAL TABLET 644271 TOPIRAMATE Inactive TEMAZEPAM 15 MG ORAL CAPSULE 1 TAB PO Q HS TEMAZEPAM 15 MG ORAL CAPSULE 815039 TEMAZEPAM Inactive IMDUR 60 MG ORAL TABLET EXTENDED RELEASE 24 HOUR take 1 tab po qday for blood pressure IMDUR 60 MG ORAL TABLET EXTENDED RELEASE 24 HOUR ISOSORBIDE MONONITRATE Inactive [id number] 0.3 MG/24HR TRANSDERMAL PATCH WEEKLY apply 2 patches q week for HTN [id number] 0.3 MG/24HR TRANSDERMAL PATCH WEEKLY 744829 CLONIDINE HCL Inactive ZITHROMAX 250 MG ORAL TABLET 2 po today, then 1 po q days 2-5 ZITHROMAX 250 MG ORAL TABLET 763328 AZITHROMYCIN Inactive TERBINAFINE HCL 250 MG ORAL TABLET 1 tab po qday for foot infection TERBINAFINE HCL 250 MG ORAL TABLET 804213 TERBINAFINE HCL Inactive KEFLEX 500 MG ORAL CAPSULE 1 po TID x 10 days KEFLEX 500 MG ORAL CAPSULE 777357 CEPHALEXIN Inactive BACTRIM DS 800-160 MG ORAL TABLET 1 tab by mouth twice daily 2015 BACTRIM DS 800-160 MG ORAL TABLET 477022 TRIMETHOPRIM- SULFAMETHOXAZOLE Inactive PREDNISONE 20 MG ORAL TABLET take 3 tabs daily for 3 days, 2 tabs daily for 3 days, 1 tab daily for 3 days, 1/2 tab daily for 4 days PREDNISONE 20 MG ORAL TABLET 385559 PREDNISONE Inactive AZITHROMYCIN 250 MG ORAL TABLET 2 po qd x 1 day, then 1 po qd x 4 days 09/20 AZITHROMYCIN 250 MG ORAL TABLET 832249 AZITHROMYCIN Inactive SINGULAIR 10 MG ORAL TABLET 1 po qday for allergies. SINGULAIR 10 MG ORAL TABLET 786375 MONTELUKAST SODIUM Inactive Advance Directives Directive Description [...] AUTO - Chemistry sodium, serum 142 mmol/L 725-005 4756/07/17 carbon dioxide, venous blood 28.2 mmol/L 21.0-32.0 [...] % 11.0-15.0 platelet count 185 THOUSAND/UL 10*3/mm3 503-474 5591/04/14 mean platelet volume 10.9 fL 7.5-12.5 Lab Report: Comp. Metabolic Panel - Chemistry sodium, serum 141 mmol/L 919-576 6889/02/13 carbon dioxide, venous blood 23.9 mmol/L 21.0-32.0 [...] 6.9 % 4.3-6.0 sodium, serum 139 mmol/L 719-687 6977/01/04 potassium, serum 3.9 mmol/L 3.5-5.2 chloride, serum 103 mmol/L 98-107 carbon dioxide, venous blood 26.9 mmol/L 21.0-32.0 blood glucose 106 mg/dL 65-110 calcium, serum 9.0 mg/dL 8.5-10.1 urea nitrogen, blood 20 mg/dL 7-18 creatinine, serum 1.46 mg/dL 0.60-1.30 Lab Report: LIPID PANEL, TSH/899, T4, FREE/866 - Chemistry cholesterol, serum 220 mg/dL 450-339 9312/04/14 HDL cholesterol, serum 30 mg/dL > OR=40 [...] 1.80 ng/mL 0.00-4.00 Lab Report: VITAMIN D, 25-HYDROXY/83895 - Chemistry vitamin D 25-hydroxy, serum 25 ng/mL 30-100 Office Visit: Confusion, dizziness after fall - Basic LDL target level 130 mg/dL Office Visit: Confusion, dizziness after fall - Chemistry HDL cholesterol, serum, target level 40 mg/dL triglyceride, target level 150 mg/dL cholesterol, target level 200 mg/dL Encounters Code Encounter Date Provider Facility CPT-82509 Level 4 Est. Patient 09:50:01 ADVERTISING SOLICITOR Robbie Busby MD [facility] CPT-90401 Level 4 Est. Patient 09:42:08 ADVERTISING SOLICITOR Robbie Busby MD [facility] CPT-70448 Level 4 Est. Patient 13:07:39 ADVERTISING SOLICITOR Robbie Busby MD [facility] CPT-81151 Level 4 Est. Patient 15:23:44 ADVERTISING SOLICITOR Desmnod Diaz DO [facility] CPT-88303 Level 3 Est. Patient 15:40:49 CDT Robbie Busby MD [facility] CPT-01585 Level 4 Est. Patient 15:18:19 CDT Robbie Busby MD [facility] CPT-64039 Level 3 Est. Patient 09:00:37 CDT Rober Rodríguez APRN [facility] CPT-97651 Level 3 Est. Patient 16:07:10 CDT Robbie Busby MD [facility] CPT-38594 Level 4 Est. Patient 11:56:16 CDT Erin Miguelzane [facility] CPT-07717 Level 3 Est. Patient 17:48:02 CDT Robbie Busby MD [facility] CPT-70853 Level 4 Est. Patient 12:00:49 ADVERTISING SOLICITOR Rober Rodríguez [facility] CPT-08152 Level 3 Est. Patient 09:16:37 CDT Robbie Busby MD [facility] CPT-75869 Level 3 Est. Patient 19:38:43 CDT Robbie Busby MD [facility] CPT-01986 Level 3 Est. Patient 11:53:38 CDT Robbie Busby MD [facility] CPT-62843 Level 4 Est. Patient 12:52:22 CDT Rober Rodríguez [facility] CPT-66315 Level 4 Est. Patient 22:55:17 CDT Robbie Busby MD [facility] CPT-69447 Level 3 Est. Patient 12:38:24 CDT Desmond Diaz DO [facility] CPT-27908 Level 4 Est. Patient 11:25:03 ADVERTISING SOLICITOR Robbie Busby MD [facility] CPT-71788 Level 4 Est. Patient 14:50:10 CDT Robbie Busby MD [facility] CPT-09136 Level 4 Est. Patient 23:30:43 CDT Robbie Busby MD [facility] CPT-81740 Level 4 Est. Patient 10:30:43 CDT Robbie Busby MD [facility] CPT-53361 Level 3 Est. Patient 17:08:12 CDT lAex ALVAREZ [facility] CPT-69451 Level 4 Est. Patient 17:51:38 CDT Robbie Busby MD [facility] CPT-31699 Level 4 Est. Patient 14:00:21 CDT Robbie Busby MD [facility] CPT-51135 Level 4 Est. Patient 12:46:48 CDT Robbie Busby MD [facility] CPT-79062 Level 4 Est. Patient 13:34:33 CDT Robbie Busby MD [facility] CPT-66957 Level 4 Est. Patient 16:58:28 CDT Robbie Busby MD [facility] CPT-68609 Level 3 Est. Patient 19:36:53 CDT Alex ALVAREZ [facility] CPT-30161 Level 3 Est. Patient 12:58:15 CDT Robbie Busby MD [facility] Procedures Code Procedure Name Date Entry Date Standard Description CPT-J1071 Depo Testosterone 200mg 16:10:29 [facility] CPT-63055 Abx/Therapy Injection 16:10:29 [facility] CPT-J1071 Depo Testosterone 200mg 16:13:47 [facility] CPT-68542 Abx/Therapy Injection 16:13:46 [facility] CPT-J1071 Depo Testosterone 200mg 15:33:58 ADVERTISING SOLICITOR CPT-45169 Abx/Therapy Injection 15:33:58 [facility] CPT-J1071 Depo Testosterone 200mg 09:38:36 ADVERTISING SOLICITOR CPT-68162 Abx/Therapy Injection 09:38:36 ADVERTISING SOLICITOR CPT-J1071 Depo Testosterone 200mg 10:22:56 ADVERTISING SOLICITOR CPT-00613 Abx/Therapy Injection 10:22:56 ADVERTISING SOLICITOR CPT-J1071 Depo Testosterone 200mg 15:40:23 CDT CPT-01238 Abx/Therapy Injection 15:40:23 CDT CPT-J1071 Depo Testosterone 200mg 14:20:43 CDT CPT-51753 Abx/Therapy Injection 14:20:43 CDT CPT-J1071 Depo Testosterone 200mg 14:17:22 CDT CPT-07223 Abx/Therapy Injection 14:17:22 CDT CPT-J1071 Depo Testosterone 200mg 09:03:53 CDT CPT-83681 Abx/Therapy Injection 09:03:53 CDT CPT-G0439 [facility] Annual Wellness Exam 16:47:44 CDT CPT-J1071 Depo Testosterone 200mg 09:06:28 CDT CPT-33194 Abx/Therapy Injection 09:06:28 CDT CPT-J1071 Depo Testosterone 200mg 08:30:01 CDT CPT-85553 Abx/Therapy Injection 08:30:01 CDT CPT-J1071 Depo Testosterone 200mg 08:24:00 CDT CPT-91762 Abx/Therapy Injection 08:24:00 CDT CPT-22337 Venipuncture Draw Fee 14:39:06 CDT CPT-64105 Ribs unilateral 2V - XRAY USE ONLY 12:10:11 CDT CPT-00650 First Vx - Ix admin for Medicare patients 16:32:53 CDT CPT-32923 Boostrix Intramuscular Suspension 5-2.5-18.5 16:32:53 CDT CPT-88012 TB Skin Test 11:42:28 CDT CPT-54727 Tdap 7yrs or > 11:42:28 CDT CPT-J0696 Rocephin 1000 mg (Ceftriaxone) 17:43:43 ADVERTISING SOLICITOR CPT-J1040 Depo Medrol 80 mg (Methyl Prednisolone Acetate) 17:43: 43 ADVERTISING SOLICITOR CPT-J1100 Decadron 8mg (Dexamethasone) 17:43:42 ADVERTISING SOLICITOR CPT-78212 Abx/Therapy Injection 17:43:42 ADVERTISING SOLICITOR CPT-38474 Abx/Therapy Injection 17:43:42 ADVERTISING SOLICITOR CPT-J1040 Depo Medrol 80 mg (Methyl Prednisolone Acetate) 09:43: 34 ADVERTISING SOLICITOR CPT-J1100 Decadron 8mg (Dexamethasone) 09:43:34 ADVERTISING SOLICITOR CPT-J0696 Rocephin 1gm Inj Solr 09:43:34 ADVERTISING SOLICITOR CPT-24179 Wound Culture - LAB USE ONLY 14:00:21 CDT CPT-I/D I/D Abscess 09:16:37 CDT CPT-42546 Venipuncture Draw Fee 15:20:23 CDT CPT-53803 Microalbumin - LAB USE ONLY 16:02:19 CDT CPT-34408 CBC - LAB USE ONLY 16:02:19 CDT CPT-65978 Venipuncture Draw Fee 16:02:19 CDT CPT-G0438 Initial Annual Wellness Exam 08:10:28 CDT CPT-37591 Venipuncture Draw Fee 13:07:17 CDT CPT-G0008 Administration of Influenza Virus Vaccine 16:09:59 CDT CPT-04816 Fluzone Quadrivalent Intramuscular Suspension 0.5 ML 16: 09:59 CDT CPT-91526 Spec Collection and Handling Fee 15:05:50 CDT
--- OUTSIDE RECORDS SUMMARY | 2018-04-18 12:14 | XMS REPORT | Clinical Summary ---
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 Desmond Diaz DO Other malignant secondary hypertension Tachycardia 785.0 Active Rober Rodríguez INSTITUTIONAL CUSTODIAN Tachycardia, unspecified Insect bite, infected 919.5 Resolved Desmond Diaz DO Insect bite, nonvenomous, of other, multiple, and unspecified sites, infected Abscess, skin 682.9 Resolved Desmond iDaz DO Cellulitis and abscess of unspecified sites URI 465.9 Resolved Desmond Diaz DO Acute upper respiratory infections of unspecified site Hypertension 401.9 Active Rober Rodríguez INSTITUTIONAL CUSTODIAN Unspecified essential hypertension Sinusitis - acute 461.9 [...] Hypogonadism, low testosterone 257.2 Active Erin Mai INSTITUTIONAL CUSTODIAN Other testicular hypofunction Low back pain, chronic [...] 36.0-36.9, adult Sinusitis ICD-461.9 Inactive Emily Atwood DIRECTOR INTERNAL AUDIT 2017 Low back pain, acute ICD-724.2 Inactive Emily Atwood DIRECTOR INTERNAL AUDIT Low back pain, chronic ICD-724.2 Inactive Emily Atwood DIRECTOR INTERNAL AUDIT Bronchitis, acute ICD-466.0 Inactive Emily Atwood DIRECTOR INTERNAL AUDIT Onychomycosis, toenails ICD-110.1 Inactive Emily Atwood DIRECTOR INTERNAL AUDIT Dizziness ICD-780.4 Inactive Emily Atwood DIRECTOR INTERNAL AUDIT 2017 Folliculitis ICD-704.8 Inactive Emily Atwood DIRECTOR INTERNAL AUDIT Pharyngitis-Acute ICD-462 Inactive Emily Atwood DIRECTOR INTERNAL AUDIT Fatigue ICD-780.79 Inactive Emily Atwood DIRECTOR INTERNAL AUDIT 09/20 Hypertension, secondary, malignant ICD-405.09 Inactive Emily Atwood DIRECTOR INTERNAL AUDIT Insect bite, infected ICD-919.5 Inactive Emily Atwood DIRECTOR INTERNAL AUDIT Abscess, skin ICD-682.9 Inactive Emily Atwood DIRECTOR INTERNAL AUDIT URI ICD-465.9 Inactive Emliy Atwood DIRECTOR INTERNAL AUDIT Sinusitis - acute ICD-461.9 Inactive Emily Atwood DIRECTOR INTERNAL AUDIT Acute confusion ICD-293.0 Inactive Emily Atwood DIRECTOR INTERNAL AUDIT Headache ICD-784.0 Inactive Emily Atwood DIRECTOR INTERNAL AUDIT 09/20 Back pain ICD-724.5 Inactive Emily Atwood DIRECTOR INTERNAL AUDIT 2017 Rib pain, right sided ICD-786.50 Inactive Emily Atwood DIRECTOR INTERNAL AUDIT Myalgias ICD-729.1 Inactive Emily Atwood DIRECTOR INTERNAL AUDIT 09/20 URI ICD-465.9 Inactive Emily Atwood DIRECTOR INTERNAL AUDIT Bronchitis-Acute ICD-466.0 Inactive Desmond Diaz DO Medication List Medication Instructions Start Date Stop Date Generic Name NDC Status Provider Patient Instruction MONTELUKAST SODIUM 10 MG ORAL TABLET 1 tab po daily for allergies MONTELUKAST SODIUM 75528459058 Active JONATHAN Moncada Active IMDUR 60 MG ORAL TABLET EXTENDED RELEASE 24 HOUR 1 po q day ISOSORBIDE MONONITRATE 76554548663 Active Emma Hernandez Active METOPROLOL SUCCINATE ER 200 MG ORAL TABLET EXTENDED RELEASE 24 HOUR take 1 tab po qday for high blood pressure and rapid pulse METOPROLOL SUCCINATE 55429000695 Active Robbie Busby MD Active [id number] 0.3 MG/24HR TRANSDERMAL PATCH WEEKLY apply 2 patches q week for HTN CLONIDINE HCL 85108386841 No Longer Active Robbie Busby MD Active IMDUR 60 MG ORAL TABLET EXTENDED RELEASE 24 HOUR take 1 tab po qday for blood pressure ISOSORBIDE MONONITRATE 38188025183 No Longer Active Robbie Busby MD Active TEMAZEPAM 15 MG ORAL CAPSULE 1 TAB PO Q HS TEMAZEPAM 31466999202 No Longer Active Robbie Busby MD Active TOPIRAMATE 50 MG ORAL TABLET 1 po BID for migraines TOPIRAMATE 12974773970 No Longer Active Robbie Busby MD Active CYCLOBENZAPRINE HCL 10 MG ORAL TABLET 1 tablet by mouth three times daily as needed for muscle spasm/pain CYCLOBENZAPRINE HCL 37045136921 No Longer Active Robbie Busby MD Active TOPROL XL 200 MG ORAL TABLET EXTENDED RELEASE 24 HOUR Take one by mouth daily METOPROLOL SUCCINATE 70076880033 No Longer Active Robbie Busby MD Active METFORMIN HCL 500 MG ORAL TABLET 1 tablet by mouth daily for diabetes type 2 METFORMIN HCL 61847936915 Active Robbie Busby MD Active SINGULAIR 10 MG ORAL TABLET 1 po qday for allergies. MONTELUKAST SODIUM 86560775830 No Longer Active Robbie Busby MD Active PREDNISONE 20 MG ORAL TABLET two tabs by mouth today, then one tab by mouth days two and three PREDNISONE 76519918280 No Longer Active Robbie Busby MD Active AZITHROMYCIN 250 MG ORAL TABLET 2 po qd x 1 day, then 1 po qd x 4 days 09/20 AZITHROMYCIN 74127277298 No Longer Active Desmond Diaz DO Active TOPIRAMATE 50 MG ORAL TABLET take 1 tab po BID for migraines. TOPIRAMATE 24772164713 No Longer Active Desmond Diaz DO Active CYCLOBENZAPRINE HCL 10 MG ORAL TABLET 1 po TID PRN muscle spasm/pain for 10 days CYCLOBENZAPRINE HCL 83038858029 No Longer Active Desmond Diaz DO Active GUAIFENESIN ER 600 MG ORAL TABLET EXTENDED RELEASE 12 HOUR 1 tab po q am 2016 GUAIFENESIN 20787961590 No Longer Active Robbie Busby MD Active DIVALPROEX SODIUM ER 500 MG ORAL TABLET EXTENDED RELEASE 24 HOUR Once daily DIVALPROEX SODIUM 93972846561 Active Robbie Busby MD Active DEPO-TESTOSTERONE 200 MG/ML INTRAMUSCULAR SOLUTION 1 IM Injections every 2 weeks for low testosterone TESTOSTERONE CYPIONATE 04924473994 Active Zulema Blank LPN Active FLUTICASONE PROPIONATE 50 MCG/ACT NASAL SUSPENSION 2 sprays per nostril bid for 1 week, then 1 spray bid FLUTICASONE PROPIONATE 96686303048 Active Rober Rodríguez APRN Active HYDRALAZINE HCL 25 MG ORAL TABLET Take 1 tab BID. HYDRALAZINE HCL 04125262209 Active Rober Rodríguez INSTITUTIONAL CUSTODIAN Active VITAMIN D3 85058 UNIT ORAL TABLET 2 po weekly CHOLECALCIFEROL 62463657541 Active Robbie Busby MD Active OXYCODONE HCL ER 10 MG ORAL TABLET ER 12 HOUR ABUSE-DETERRENT 1 tab po 3 times qd. OXYCODONE HCL 91470101645 Active Robbie Busby MD Active NITROSTAT 0.4 MG SUBLINGUAL TABLET SUBLINGUAL PRN NITROGLYCERIN 00301801681 No Longer Active Robbie Busby MD Active LORATADINE 10 MG ORAL TABLET 1 tablet by mouth daily for congestion and allergies. LORATADINE 54180744582 No Longer Active Robbie Busby MD Active FLONASE 50 MCG/ACT NASAL SUSPENSION 1 spray each nostril twice daily for allergies and runny nose FLUTICASONE PROPIONATE 41059156483 No Longer Active Robbie Busby MD Active FIORICET 50-300-40 MG ORAL CAPSULE take 1 tab po qday prn migraines. [id number] 16901992545 No Longer Active Robbie Busby MD Active VITAMIN D3 16742 UNIT ORAL CAPSULE 2 CAPS PO WEEKLY CHOLECALCIFEROL 65830211450 No Longer Active Robbie Busby MD Active CYCLOBENZAPRINE HCL 10 MG ORAL TABLET 1 tablet by mouth three times daily as needed for muscle spasm/pain for 10 days CYCLOBENZAPRINE HCL 47135920210 No Longer Active Robbie Busby MD Active PREDNISONE 20 MG ORAL TABLET take 3 tabs daily for 3 days, 2 tabs daily for 3 days, 1 tab daily for 3 days, 1/2 tab daily for 4 days PREDNISONE 18988035134 No Longer Active Erin Arell INSTITUTIONAL CUSTODIAN Active CLONIDINE HCL 0.2 MG ORAL TABLET 1 TAB BY MOUTH EVERY 8 HOURS CLONIDINE HCL 89371317493 No Longer Active Erin Arell INSTITUTIONAL CUSTODIAN Active MECLIZINE HCL 25 MG ORAL TABLET one 4 times a day as needed for dizziness MECLIZINE HCL 52663786970 No Longer Active Erin Arell INSTITUTIONAL CUSTODIAN Active SPIRONOLACTONE 25 MG ORAL TABLET 4 tablets by mouth daily SPIRONOLACTONE 20338739279 No Longer Active Erin Arell INSTITUTIONAL CUSTODIAN Active LEVAQUIN 500 MG ORAL TABLET 1 tablet by mouth daily for 7 days LEVOFLOXACIN 26040865785 No Longer Active Erin Arell INSTITUTIONAL CUSTODIAN Active BACTRIM DS 800-160 MG ORAL TABLET 1 tab by mouth twice daily 2015 TRIMETHOPRIM-SULFAMETHOXAZOLE 35978268065 No Longer Active Robbie Busby MD Active HYDRALAZINE HCL 50 MG ORAL TABLET TWO BY MOUTH THREE TIMES DAILY HYDRALAZINE HCL 39761342962 No Longer Active Jillina Frazell INSTITUTIONAL CUSTODIAN Active HYDROCODONE-ACETAMINOPHEN 5-325 MG ORAL TABLET 1 tab by mouth BID prn back pain HYDROCODONE-ACETAMINOPHEN 38134891704 No Longer Active Jillina Frazell INSTITUTIONAL CUSTODIAN Active HYDROCHLOROTHIAZIDE TABLET Take one by mouth daily HYDROCHLOROTHIAZIDE TABS 31962624120 No Longer Active Jillina Frazell INSTITUTIONAL CUSTODIAN Active LAMISIL 125 MG ORAL PACKET 1 TAB PO DAILY TERBINAFINE HCL 51308296833 No Longer Active Jillina Frazell INSTITUTIONAL CUSTODIAN Active TRILEPTAL 150 MG ORAL TABLET 1 TAB PO Q HS OXCARBAZEPINE 13163906205 No Longer Active Jillina Frazell INSTITUTIONAL CUSTODIAN Active BETADINE 10 % EXTERNAL SOLUTION wash with solution to treat follicultis 07/29 POVIDONE-IODINE 22541540815 No Longer Active Rober Rodríguez APRN Active NYSTATIN 384377 UNIT/ML MOUTH/THROAT SUSPENSION 5mL po QID x 10 days NYSTATIN 77189789977 No Longer Active Erin Mai APRN Active PREDNISONE 20 MG ORAL TABLET 1 tablet twice daily for 2 days, then 1 tablet once daily for 2 days PREDNISONE 34598628550 No Longer Active Robbie Busby MD Active CEFDINIR 300 MG ORAL CAPSULE Take 1 cap po bid x 10 days CEFDINIR 83895848396 No Longer Active Robbie Busby MD Active AMLODIPINE BESYLATE 10 MG ORAL TABLET 1 tablet by mouth daily AMLODIPINE BESYLATE 29241294234 Active Robbie Busby MD Active CARVEDILOL 25 MG ORAL TABLET 1 & 1/2 TAB po BID CARVEDILOL 87977624372 Active Robbie Busby MD Active NEXIUM 40 MG ORAL CAPSULE DELAYED RELEASE 1 cap by mouth daily ESOMEPRAZOLE MAGNESIUM 49696020723 Active Robbie Busby MD Active PROTONIX 40 MG INTRAVENOUS SOLUTION RECONSTITUTED 1 po qday for acid reflux PANTOPRAZOLE SODIUM 97579778091 No Longer Active Gali Raida Active KEFLEX 500 MG ORAL CAPSULE 1 po TID x 10 days CEPHALEXIN 47793990166 No Longer Active Robbie Busby MD Active ALPRAZOLAM 2 MG ORAL TABLET 1 TAB PO BID ALPRAZOLAM 32953190146 Active Robbie Busby MD Active FENOFIBRATE 145 MG ORAL TABLET Take one by mouth daily FENOFIBRATE 04263111480 No Longer Active Robbie Busby MD Active SPIRONOLACTONE 50 MG ORAL TABLET 1 tablet by mouth twice a day SPIRONOLACTONE 72017875388 No Longer Active Robbie Busby MD Active HYDRALAZINE HCL 25 MG ORAL TABLET 1 tablet by mouth tid for hypertension 2013 HYDRALAZINE HCL 99001776699 No Longer Active Robbie Busby MD Active VIIBRYD 40 MG ORAL TABLET take 1 tab po qday for depression. 2014 VILAZODONE HCL 62777490322 No Longer Active Robbie Busby MD Active TERBINAFINE HCL 250 MG ORAL TABLET 1 tab po qday for foot infection TERBINAFINE HCL 46458301974 No Longer Active Robbie Busby MD Active GABAPENTIN 300 MG ORAL CAPSULE 1 po q hs for nerve pain GABAPENTIN 14368844786 Active Robbie Busby MD Active CHERATUSSIN AC 100-10 MG/5ML ORAL SOLUTION 7.5 mL PO q 4-6 hrs PRN cough 2014 GUAIFENESIN-CODEINE 74421240560 No Longer Active Robbei Busby MD Active AZITHROMYCIN 250 MG ORAL TABLET 2 tablets PO today---then, 1 tablet PO daily x 4 more days (and 1 optional refill) AZITHROMYCIN 25113410068 No Longer Active Robbie Busby MD Active NORVASC 10 MG ORAL TABLET 1 tablet by mouth daily AMLODIPINE BESYLATE 59287933453 No Longer Active Alex ALVAREZ Active ISOSORBIDE DINITRATE 30 MG ORAL TABLET Take one by mouth daily ISOSORBIDE DINITRATE 06835217987 No Longer Active Robbie Busby MD Active VIIBRYD 40 MG ORAL TABLET 1 TA B PO DAILY VILAZODONE HCL 85298774462 Active Robbie Busby MD Active ZITHROMAX 250 MG ORAL TABLET 2 po today, then 1 po q days 2-5 AZITHROMYCIN 89493580039 No Longer Active Robbie Busby MD Active DOXAZOSIN MESYLATE 4 MG ORAL TABLET Take one by mouth daily DOXAZOSIN MESYLATE 70110809346 Active Robbie Busby MD Active VENLAFAXINE HCL ER 150 MG ORAL TABLET EXTENDED RELEASE 24 HOUR Take one by mouth daily VENLAFAXINE HCL 12591222549 Active Robbie Busby MD Active LIPITOR 40 MG ORAL TABLET Take one by mouth daily ATORVASTATIN CALCIUM 48328699747 Active Robbie Busby MD Active ISOSORBIDE DINITRATE 30 MG ORAL TABLET Take one by mouth daily ISOSORBIDE DINITRATE 30 MG ORAL TABLET 501068 ISOSORBIDE DINITRATE Inactive NORVASC 10 MG ORAL TABLET 1 tablet by mouth daily NORVASC 10 MG ORAL TABLET 172373 AMLODIPINE BESYLATE Inactive AZITHROMYCIN 250 MG ORAL TABLET 2 tablets PO today---then, 1 tablet PO daily x 4 more days (and 1 optional refill) AZITHROMYCIN 250 MG ORAL TABLET 397449 AZITHROMYCIN Inactive CHERATUSSIN AC 100-10 MG/5ML ORAL SOLUTION 7.5 mL PO q 4-6 hrs PRN cough 2014 CHERATUSSIN AC 100-10 MG/5ML ORAL SOLUTION 253272 GUAIFENESIN-CODEINE Inactive VIIBRYD 40 MG ORAL TABLET take 1 tab po qday for depression. 2014 VIIBRYD 40 MG ORAL TABLET VILAZODONE HCL Inactive HYDRALAZINE HCL 25 MG ORAL TABLET 1 tablet by mouth tid for hypertension 2013 HYDRALAZINE HCL 25 MG ORAL TABLET 757861 HYDRALAZINE HCL Inactive SPIRONOLACTONE 50 MG ORAL TABLET 1 tablet by mouth twice a day SPIRONOLACTONE 50 MG ORAL TABLET 025226 SPIRONOLACTONE Inactive FENOFIBRATE 145 MG ORAL TABLET Take one by mouth daily FENOFIBRATE 145 MG ORAL TABLET 964276 FENOFIBRATE Inactive PROTONIX 40 MG INTRAVENOUS SOLUTION RECONSTITUTED 1 po qday for acid reflux PROTONIX 40 MG INTRAVENOUS SOLUTION RECONSTITUTED 218968 PANTOPRAZOLE SODIUM Inactive CEFDINIR 300 MG ORAL CAPSULE Take 1 cap po bid x 10 days CEFDINIR 300 MG ORAL CAPSULE 534876 CEFDINIR Inactive PREDNISONE 20 MG ORAL TABLET 1 tablet twice daily for 2 days, then 1 tablet once daily for 2 days PREDNISONE 20 MG ORAL TABLET 997060 PREDNISONE Inactive NYSTATIN 392077 UNIT/ML MOUTH/THROAT SUSPENSION 5mL po QID x 10 days NYSTATIN 111745 UNIT/ML MOUTH/THROAT SUSPENSION 213229 NYSTATIN Inactive BETADINE 10 % EXTERNAL SOLUTION wash with solution to treat follicultis 07/29 BETADINE 10 % EXTERNAL SOLUTION 6155383 POVIDONE-IODINE Inactive TRILEPTAL 150 MG ORAL TABLET 1 TAB PO Q HS TRILEPTAL 150 MG ORAL TABLET 936790 OXCARBAZEPINE Inactive LAMISIL 125 MG ORAL PACKET 1 TAB PO DAILY LAMISIL 125 MG ORAL PACKET TERBINAFINE HCL Inactive HYDROCHLOROTHIAZIDE TABLET Take one by mouth daily HYDROCHLOROTHIAZIDE TABLET HYDROCHLOROTHIAZIDE TABS Inactive HYDROCODONE-ACETAMINOPHEN 5-325 MG ORAL TABLET 1 tab by mouth BID prn back pain HYDROCODONE-ACETAMINOPHEN 5-325 MG ORAL TABLET 034791 HYDROCODONE-ACETAMINOPHEN Inactive HYDRALAZINE HCL 50 MG ORAL TABLET TWO BY MOUTH THREE TIMES DAILY HYDRALAZINE HCL 50 MG ORAL TABLET 323830 HYDRALAZINE HCL Inactive LEVAQUIN 500 MG ORAL TABLET 1 tablet by mouth daily for 7 days LEVAQUIN 500 MG ORAL TABLET 702326 LEVOFLOXACIN Inactive SPIRONOLACTONE 25 MG ORAL TABLET 4 tablets by mouth daily SPIRONOLACTONE 25 MG ORAL TABLET 727483 SPIRONOLACTONE Inactive MECLIZINE HCL 25 MG ORAL TABLET one 4 times a day as needed for dizziness MECLIZINE HCL 25 MG ORAL TABLET 816717 MECLIZINE HCL Inactive CLONIDINE HCL 0.2 MG ORAL TABLET 1 TAB BY MOUTH EVERY 8 HOURS CLONIDINE HCL 0.2 MG ORAL TABLET 188672 CLONIDINE HCL Inactive CYCLOBENZAPRINE HCL 10 MG ORAL TABLET 1 tablet by mouth three times daily as needed for muscle spasm/pain for 10 days CYCLOBENZAPRINE HCL 10 MG ORAL TABLET 204532 CYCLOBENZAPRINE HCL Inactive VITAMIN D3 03441 UNIT ORAL CAPSULE 2 CAPS PO WEEKLY VITAMIN D3 78431 UNIT ORAL CAPSULE CHOLECALCIFEROL Inactive FIORICET 50-300-40 MG ORAL CAPSULE take 1 tab po qday prn migraines. FIORICET 50-300-40 MG ORAL CAPSULE 600912 BUTALBITAL-APAP- CAFFEINE Inactive FLONASE 50 MCG/ACT NASAL SUSPENSION 1 spray each nostril twice daily for allergies and runny nose FLONASE 50 MCG/ACT NASAL SUSPENSION 2718644 FLUTICASONE PROPIONATE Inactive LORATADINE 10 MG ORAL TABLET 1 tablet by mouth daily for congestion and allergies. LORATADINE 10 MG ORAL TABLET 871985 LORATADINE Inactive NITROSTAT 0.4 MG SUBLINGUAL TABLET SUBLINGUAL PRN NITROSTAT 0.4 MG SUBLINGUAL TABLET SUBLINGUAL 529941 NITROGLYCERIN Inactive GUAIFENESIN ER 600 MG ORAL TABLET EXTENDED RELEASE 12 HOUR 1 tab po q am 2016 GUAIFENESIN ER 600 MG ORAL TABLET EXTENDED RELEASE 12 HOUR GUAIFENESIN Inactive CYCLOBENZAPRINE HCL 10 MG ORAL TABLET 1 po TID PRN muscle spasm/pain for 10 days CYCLOBENZAPRINE HCL 10 MG ORAL TABLET 863854 CYCLOBENZAPRINE HCL Inactive TOPIRAMATE 50 MG ORAL TABLET take 1 tab po BID for migraines. TOPIRAMATE 50 MG ORAL TABLET 450319 TOPIRAMATE Inactive PREDNISONE 20 MG ORAL TABLET two tabs by mouth today, then one tab by mouth days two and three PREDNISONE 20 MG ORAL TABLET 901656 PREDNISONE Inactive TOPROL XL 200 MG ORAL TABLET EXTENDED RELEASE 24 HOUR Take one by mouth daily TOPROL XL 200 MG ORAL TABLET EXTENDED RELEASE 24 HOUR METOPROLOL SUCCINATE Inactive CYCLOBENZAPRINE HCL 10 MG ORAL TABLET 1 tablet by mouth three times daily as needed for muscle spasm/pain CYCLOBENZAPRINE HCL 10 MG ORAL TABLET 208442 CYCLOBENZAPRINE HCL Inactive TOPIRAMATE 50 MG ORAL TABLET 1 po BID for migraines TOPIRAMATE 50 MG ORAL TABLET 021506 TOPIRAMATE Inactive TEMAZEPAM 15 MG ORAL CAPSULE 1 TAB PO Q HS TEMAZEPAM 15 MG ORAL CAPSULE 018985 TEMAZEPAM Inactive IMDUR 60 MG ORAL TABLET EXTENDED RELEASE 24 HOUR take 1 tab po qday for blood pressure IMDUR 60 MG ORAL TABLET EXTENDED RELEASE 24 HOUR ISOSORBIDE MONONITRATE Inactive [id number] 0.3 MG/24HR TRANSDERMAL PATCH WEEKLY apply 2 patches q week for HTN [id number]-[id number]-3 0.3 MG/24HR TRANSDERMAL PATCH WEEKLY 559352 CLONIDINE HCL Inactive ZITHROMAX 250 MG ORAL TABLET 2 po today, then 1 po q days 2-5 ZITHROMAX 250 MG ORAL TABLET 222933 AZITHROMYCIN Inactive TERBINAFINE HCL 250 MG ORAL TABLET 1 tab po qday for foot infection TERBINAFINE HCL 250 MG ORAL TABLET 042044 TERBINAFINE HCL Inactive KEFLEX 500 MG ORAL CAPSULE 1 po TID x 10 days KEFLEX 500 MG ORAL CAPSULE 430818 CEPHALEXIN Inactive BACTRIM DS 800-160 MG ORAL TABLET 1 tab by mouth twice daily 2015 BACTRIM DS 800-160 MG ORAL TABLET 304701 TRIMETHOPRIM- SULFAMETHOXAZOLE Inactive PREDNISONE 20 MG ORAL TABLET take 3 tabs daily for 3 days, 2 tabs daily for 3 days, 1 tab daily for 3 days, 1/2 tab daily for 4 days PREDNISONE 20 MG ORAL TABLET 071458 PREDNISONE Inactive AZITHROMYCIN 250 MG ORAL TABLET 2 po qd x 1 day, then 1 po qd x 4 days 09/20 AZITHROMYCIN 250 MG ORAL TABLET 840241 AZITHROMYCIN Inactive SINGULAIR 10 MG ORAL TABLET 1 po qday for allergies. SINGULAIR 10 MG ORAL TABLET 116240 MONTELUKAST SODIUM Inactive Advance Directives Directive Description [...] AUTO - Chemistry sodium, serum 142 mmol/L 820-919 7784/07/17 carbon dioxide, venous blood 28.2 mmol/L 21.0-32.0 [...] Panel - Chemistry sodium, serum 141 mmol/L 887-315 3511/02/13 carbon dioxide, venous blood 23.9 mmol/L 21.0-32.0 [...] 6.9 % 4.3-6.0 sodium, serum 139 mmol/L 966-321 3812/01/04 potassium, serum 3.9 mmol/L 3.5-5.2 chloride, serum [...] 1.80 ng/mL 0.00-4.00 Lab Report: VITAMIN D, 25-HYDROXY/92138 - Chemistry vitamin D 25-hydroxy, serum 25 ng/mL 30-100 Encounters Code Encounter Date Provider Facility CPT-54312 Level 3 Est. Patient 16:04:17 CDT Robbie Busby MD [facility] CPT-97084 Level 4 Est. Patient 09:50:01 PUMP SERVICER HELPER Robbie Busby MD [facility] CPT-64828 Level 4 Est. Patient 09:42:08 PUMP SERVICER HELPER Robbie Busby MD [facility] CPT-31109 Level 4 Est. Patient 13:07:39 PUMP SERVICER HELPER Robbie Busby MD [facility] CPT-05666 Level 4 Est. Patient 15:23:44 PUMP SERVICER HELPER Desmond Diaz DO [facility] CPT-02528 Level 3 Est. Patient 15:40:49 CDT Robbie Busby MD [facility] CPT-76347 Level 4 Est. Patient 15:18:19 CDT Robbie Busby MD [facility] CPT-69992 Level 3 Est. Patient 09:00:37 CDT Rober Rodolfoneha [facility] CPT-63580 Level 3 Est. Patient 16:07:10 CDT Robbie Busby MD [facility] CPT-47537 Level 4 Est. Patient 11:56:16 CDT Erin Miguelzane [facility] CPT-38196 Level 3 Est. Patient 17:48:02 CDT Robbie Busby MD [facility] CPT-89478 Level 4 Est. Patient 12:00:49 PUMP SERVICER HELPER Rober Rodríguez [facility] CPT-49940 Level 3 Est. Patient 09:16:37 CDT Robbie Busby MD [facility] CPT-24998 Level 3 Est. Patient 19:38:43 CDT Robbie Busby MD [facility] CPT-53568 Level 3 Est. Patient 11:53:38 CDT Robbie Busby MD [facility] CPT-33433 Level 4 Est. Patient 12:52:22 CDT Rober Rodríguez [facility] CPT-82760 Level 4 Est. Patient 22:55:17 CDT Robbie Busby MD [facility] CPT-33589 Level 3 Est. Patient 12:38:24 CDT Desmond Diaz DO [facility] CPT-35390 Level 4 Est. Patient 11:25:03 PUMP SERVICER HELPER Robbie Busby MD [facility] CPT-01579 Level 4 Est. Patient 14:50:10 CDT Robbie Busby MD [facility] CPT-84878 Level 4 Est. Patient 23:30:43 CDT Robbie Busby MD [facility] CPT-61057 Level 4 Est. Patient 10:30:43 CDT Robbie Busby MD [facility] CPT-60344 Level 3 Est. Patient 17:08:12 CDT Alex ALVAREZ [facility] CPT-34714 Level 4 Est. Patient 17:51:38 CDT Robbie Busby MD [facility] CPT-72209 Level 4 Est. Patient 14:00:21 CDT Robbie Busby MD [facility] CPT-23951 Level 4 Est. Patient 12:46:48 CDT Robbie Busby MD [facility] CPT-90102 Level 4 Est. Patient 13:34:33 CDT Robbie Busby MD [facility] CPT-23234 Level 4 Est. Patient 16:58:28 CDT Robbie Busby MD [facility] CPT-51957 Level 3 Est. Patient 19:36:53 CDT Alex Shaw [facility] CPT-41272 Level 3 Est. Patient 12:58:15 CDT Robbie Busby MD [facility] Procedures Code Procedure Name Date Entry Date Standard Description CPT-J1100 Decadron 8mg (Dexamethasone) 16:04:17 CDT CPT-J1040 Depo Medrol 80 mg (Methyl Prednisolone Acetate) 16:04: 17 CDT CPT-J1071 Depo Testosterone 200mg 08:56:46 CDT CPT-46851 Abx/Therapy Injection 08:56:45 CDT CPT-J1071 Depo Testosterone 200mg 08:26:27 CDT CPT-76993 Abx/Therapy Injection 08:26:27 CDT CPT-J1071 Depo Testosterone 200mg 10:27:10 CDT CPT-84066 Abx/Therapy Injection 10:27:10 CDT CPT-J1071 Depo Testosterone 200mg 16:10:29 PUMP SERVICER HELPER CPT-69297 Abx/Therapy Injection 16:10:29 PUMP SERVICER HELPER CPT-J1071 Depo Testosterone 200mg 16:13:47 PUMP SERVICER HELPER CPT-12276 Abx/Therapy Injection 16:13:46 PUMP SERVICER HELPER CPT-J1071 Depo Testosterone 200mg 15:33:58 PUMP SERVICER HELPER CPT-04814 Abx/Therapy Injection 15:33:58 PUMP SERVICER HELPER CPT-J1071 Depo Testosterone 200mg 09:38:36 PUMP SERVICER HELPER CPT-03555 Abx/Therapy Injection 09:38:36 PUMP SERVICER HELPER CPT-J1071 Depo Testosterone 200mg 10:22:56 PUMP SERVICER HELPER CPT-33931 Abx/Therapy Injection 10:22:56 PUMP SERVICER HELPER CPT-J1071 Depo Testosterone 200mg 15:40:23 CDT CPT-31951 Abx/Therapy Injection 15:40:23 CDT CPT-J1071 Depo Testosterone 200mg 14:20:43 CDT CPT-99590 Abx/Therapy Injection 14:20:43 CDT CPT-J1071 Depo Testosterone 200mg 14:17:22 CDT CPT-66654 Abx/Therapy Injection 14:17:22 CDT CPT-J1071 Depo Testosterone 200mg 09:03:53 CDT CPT-23160 Abx/Therapy Injection 09:03:53 CDT CPT-G0439 Subsequent Annual Wellness Exam 16:47:44 CDT CPT-J1071 Depo Testosterone 200mg 09:06:28 CDT CPT-12042 Abx/Therapy Injection 09:06:28 CDT CPT-J1071 Depo Testosterone 200mg 08:30:01 CDT CPT-18584 Abx/Therapy Injection 08:30:01 CDT CPT-J1071 Depo Testosterone 200mg 08:24:00 CDT CPT-63951 Abx/Therapy Injection 08:24:00 CDT CPT-98907 Venipuncture Draw Fee 14:39:06 CDT CPT-11771 Ribs unilateral 2V - XRAY USE ONLY 12:10:11 CDT CPT-71952 First Vx - Ix admin for Medicare patients 16:32:53 CDT CPT-73774 Boostrix Intramuscular Suspension 5-2.5-18.5 16:32:53 CDT CPT-73175 TB Skin Test 11:42:28 CDT CPT-24924 Tdap 7yrs or > 11:42:28 CDT CPT-J0696 Rocephin 1000 mg (Ceftriaxone) 17:43:43 PUMP SERVICER HELPER CPT-J1040 Depo Medrol 80 mg (Methyl Prednisolone Acetate) 17:43: 43 PUMP SERVICER HELPER CPT-J1100 Decadron 8mg (Dexamethasone) 17:43:42 PUMP SERVICER HELPER CPT-20830 Abx/Therapy Injection 17:43:42 PUMP SERVICER HELPER CPT-72952 Abx/Therapy Injection 17:43:42 PUMP SERVICER HELPER CPT-J1040 Depo Medrol 80 mg (Methyl Prednisolone Acetate) 09:43: 34 PUMP SERVICER HELPER CPT-J1100 Decadron 8mg (Dexamethasone) 09:43:34 PUMP SERVICER HELPER CPT-J0696 Rocephin 1gm Inj Solr 09:43:34 PUMP SERVICER HELPER CPT-34515 Wound Culture - LAB USE ONLY 14:00:21 CDT CPT-I/D I/D Abscess 09:16:37 CDT CPT-81442 Venipuncture Draw Fee 15:20:23 CDT CPT-36697 Microalbumin - LAB USE ONLY 16:02:19 CDT CPT-60811 CBC - LAB USE ONLY 16:02:19 CDT CPT-30743 Venipuncture Draw Fee 16:02:19 CDT CPT-G0438 Initial Annual Wellness Exam 08:10:28 CDT CPT-03545 Venipuncture Draw Fee 13:07:17 CDT CPT-G0008 Administration of Influenza Virus Vaccine 16:09:59 CDT CPT-19276 Fluzone Quadrivalent Intramuscular Suspension 0.5 ML 16: 09:59 CDT CPT-91327 Spec Collection and Handling Fee 15:05:50 CDT
--- OUTSIDE RECORDS SUMMARY | 2018-04-18 12:15 | XMS REPORT | Clinical Summary ---
Author Author Admin, AKUA Organization [employer] Address Unknown Phone Unavailable Allergies, Adverse Reactions, [...] unspecified sites URI 465.9 Active Rober Rodríguez [employer] Acute upper respiratory infections of unspecified site [...] chronic 724.2 Active Robbie Busby MD [facility] Medication List Medication Instructions Start Date Stop Date Generic Name NDC Status Provider Patient Instruction GUAIFENESIN ER 600 MG ORAL TABLET EXTENDED RELEASE 12 HOUR 1 tab po q am 2016 GUAIFENESIN [id number] No Longer Active Robbie Busby MD Active DIVALPROEX SODIUM ER 500 MG ORAL TABLET EXTENDED RELEASE 24 HOUR Once daily DIVALPROEX SODIUM 59562572066 Active Robbie Busby MD Active DEPO-TESTOSTERONE 200 MG/ML INTRAMUSCULAR SOLUTION 1 IM Injections every 2 weeks for low testosterone TESTOSTERONE CYPIONATE 35424464580 Active Zulema Blank LPN Active CYCLOBENZAPRINE HCL 10 MG ORAL TABLET 1 po TID PRN muscle spasm/pain for 10 days CYCLOBENZAPRINE HCL 66817531210 Active JONATHAN Moncada Active FLUTICASONE PROPIONATE 50 MCG/ACT NASAL SUSPENSION 2 sprays per nostril bid for 1 week, then 1 spray bid FLUTICASONE PROPIONATE 49644710408 Active Rober Rodríguez [employer] Active HYDRALAZINE HCL 25 MG ORAL TABLET Take 1 tab BID. HYDRALAZINE HCL 12718723315 Active Rober Rodríguez APRN Active VITAMIN D3 19232 UNIT ORAL TABLET 2 po weekly CHOLECALCIFEROL 77195213217 Active Robbie Busby MD Active OXYCODONE HCL ER 10 MG ORAL TABLET ER 12 HOUR ABUSE-DETERRENT 1 tab po 3 times qd. OXYCODONE HCL 09071884090 Active Robbie Busby MD Active NITROSTAT 0.4 MG SUBLINGUAL TABLET SUBLINGUAL PRN NITROGLYCERIN 71781858865 No Longer Active Robbie Busby MD Active LORATADINE 10 MG ORAL TABLET 1 tablet by mouth daily for congestion and allergies. LORATADINE 31285834668 No Longer Active Robbie Busby MD Active FLONASE 50 MCG/ACT NASAL SUSPENSION 1 spray each nostril twice daily for allergies and runny nose FLUTICASONE PROPIONATE 71885595893 No Longer Active Robbie Busby MD Active FIORICET 50-300-40 MG ORAL CAPSULE take 1 tab po qday prn migraines. PZAWLEBRJI-HUCN-[id number] 46994245206 No Longer Active Robbie Busby MD Active VITAMIN D3 44093 UNIT ORAL CAPSULE 2 CAPS PO WEEKLY CHOLECALCIFEROL 64654097327 No Longer Active Robbie Busby MD Active CYCLOBENZAPRINE HCL 10 MG ORAL TABLET 1 tablet by mouth three times daily as needed for muscle spasm/pain for 10 days CYCLOBENZAPRINE HCL 09755760265 No Longer Active Robbie Busby MD Active PREDNISONE 20 MG ORAL TABLET take 3 tabs daily for 3 days, 2 tabs daily for 3 days, 1 tab daily for 3 days, 1/2 tab daily for 4 days PREDNISONE 08528547381 No Longer Active Erin Garsia APRN Active CLONIDINE HCL 0.2 MG ORAL TABLET 1 TAB BY MOUTH EVERY 8 HOURS CLONIDINE HCL 30196231359 No Longer Active Erin Garsia APRN Active MECLIZINE HCL 25 MG ORAL TABLET one 4 times a day as needed for dizziness MECLIZINE HCL 38679526994 No Longer Active Erin Garsia APRN Active SPIRONOLACTONE 25 MG ORAL TABLET 4 tablets by mouth daily SPIRONOLACTONE 56056418379 No Longer Active Erin Garsia APRN Active LEVAQUIN 500 MG ORAL TABLET 1 tablet by mouth daily for 7 days LEVOFLOXACIN 17250882791 No Longer Active Erin Garsia APRN Active BACTRIM DS 800-160 MG ORAL TABLET 1 tab by mouth twice daily 2015 TRIMETHOPRIM-SULFAMETHOXAZOLE 98476557588 No Longer Active Robbie Busby MD Active HYDRALAZINE HCL 50 MG ORAL TABLET TWO BY MOUTH THREE TIMES DAILY HYDRALAZINE HCL 42097420668 No Longer Active Rober Rodríguez APRN Active HYDROCODONE-ACETAMINOPHEN 5-325 MG ORAL TABLET 1 tab by mouth BID prn back pain HYDROCODONE-ACETAMINOPHEN 72974874222 No Longer Active Jillld Rodríguez APRN Active HYDROCHLOROTHIAZIDE TABLET Take one by mouth daily HYDROCHLOROTHIAZIDE TABS 33494801681 No Longer Active Andrellld Rodríguez APRN Active LAMISIL 125 MG ORAL PACKET 1 TAB PO DAILY TERBINAFINE HCL 28328402178 No Longer Active Andrellld Rodríguez APRN Active TRILEPTAL 150 MG ORAL TABLET 1 TAB PO Q HS OXCARBAZEPINE 17975992571 No Longer Active Rober Rodríguez APRN Active BETADINE 10 % EXTERNAL SOLUTION wash with solution to treat follicultis 07/29 POVIDONE-IODINE 55929504447 No Longer Active Rober Rodríguez APRN Active NYSTATIN 032767 UNIT/ML MOUTH/THROAT SUSPENSION 5mL po QID x 10 days NYSTATIN 70920649974 No Longer Active Erin Garsia APRN Active PREDNISONE 20 MG ORAL TABLET 1 tablet twice daily for 2 days, then 1 tablet once daily for 2 days PREDNISONE 75623425938 No Longer Active Robbie Busby MD Active CEFDINIR 300 MG ORAL CAPSULE Take 1 cap po bid x 10 days CEFDINIR 55985305144 No Longer Active Robbie Busby MD Active AMLODIPINE BESYLATE 10 MG ORAL TABLET 1 tablet by mouth daily AMLODIPINE BESYLATE 63095824020 Active Robbie Busby MD Active CARVEDILOL 25 MG ORAL TABLET 1 & 1/2 TAB po BID CARVEDILOL 40303659173 Active Robbie Busby MD Active NEXIUM 40 MG ORAL CAPSULE DELAYED RELEASE 1 cap by mouth daily ESOMEPRAZOLE MAGNESIUM 47905343045 Active Robbie Busby MD Active PROTONIX 40 MG INTRAVENOUS SOLUTION RECONSTITUTED 1 po qday for acid reflux PANTOPRAZOLE SODIUM 32630480374 No Longer Active Gali Raida Active KEFLEX 500 MG ORAL CAPSULE 1 po TID x 10 days CEPHALEXIN 65676652563 No Longer Active Robbie Busby MD Active TOPIRAMATE 50 MG ORAL TABLET take 1 tab po BID for migraines. TOPIRAMATE 54136953714 Active Robbie Busby MD Active TEMAZEPAM 15 MG ORAL CAPSULE 1 TAB PO Q HS TEMAZEPAM 59874843421 Active Robbie Busby MD Active ALPRAZOLAM 2 MG ORAL TABLET 1 TAB PO BID ALPRAZOLAM 10264368197 Active Robbie Busby MD Active FENOFIBRATE 145 MG ORAL TABLET Take one by mouth daily FENOFIBRATE 13014637804 No Longer Active Robbie Busby MD Active SPIRONOLACTONE 50 MG ORAL TABLET 1 tablet by mouth twice a day SPIRONOLACTONE 99108196930 No Longer Active Robbie Busby MD Active HYDRALAZINE HCL 25 MG ORAL TABLET 1 tablet by mouth tid for hypertension 2013 HYDRALAZINE HCL 64634521978 No Longer Active Robbie Busby MD Active VIIBRYD 40 MG ORAL TABLET take 1 tab po qday for depression. 2014 VILAZODONE HCL 19834180661 No Longer Active Robbie Busby MD Active TERBINAFINE HCL 250 MG ORAL TABLET 1 tab po qday for foot infection TERBINAFINE HCL 02901067082 No Longer Active Robbie Busby MD Active GABAPENTIN 300 MG ORAL CAPSULE 1 po q hs for nerve pain GABAPENTIN 71493342730 Active Robbie Busby MD Active CHERATUSSIN AC 100-10 MG/5ML ORAL SOLUTION 7.5 mL PO q 4-6 hrs PRN cough 2014 GUAIFENESIN-CODEINE 03234389631 No Longer Active Robbie Busby MD Active AZITHROMYCIN 250 MG ORAL TABLET 2 tablets PO today---then, 1 tablet PO daily x 4 more days (and 1 optional refill) AZITHROMYCIN 50564073742 No Longer Active Robbie Busby MD Active NORVASC 10 MG ORAL TABLET 1 tablet by mouth daily AMLODIPINE BESYLATE 21723111420 No Longer Active Alex ALVAREZ Active IMDUR 60 MG ORAL TABLET EXTENDED RELEASE 24 HOUR take 1 tab po qday for blood pressure ISOSORBIDE MONONITRATE 97335441605 Active Robbie Busby MD Active ISOSORBIDE DINITRATE 30 MG ORAL TABLET Take one by mouth daily ISOSORBIDE DINITRATE 95410884429 No Longer Active Robbie Busby MD Active VIIBRYD 40 MG ORAL TABLET 1 TA B PO DAILY VILAZODONE HCL 01356326515 Active Robbie Busby MD Active ZITHROMAX 250 MG ORAL TABLET 2 po today, then 1 po q days 2-5 AZITHROMYCIN 54752541999 No Longer Active Robbie Busby MD Active KWOTAGQL-LNT-5 0.3 MG/24HR TRANSDERMAL PATCH WEEKLY apply 2 patches q week for HTN CLONIDINE HCL 28458594517 Active Robbie Busby MD Active DOXAZOSIN MESYLATE 4 MG ORAL TABLET Take one by mouth daily DOXAZOSIN MESYLATE 08035783494 Active Robbie Busby MD Active TOPROL XL 200 MG ORAL TABLET EXTENDED RELEASE 24 HOUR Take one by mouth daily METOPROLOL SUCCINATE 15288673815 Active Robbie Busby MD Active VENLAFAXINE HCL ER 150 MG ORAL TABLET EXTENDED RELEASE 24 HOUR Take one by mouth daily VENLAFAXINE HCL 35348125935 Active Robbie Busby MD Active LIPITOR 40 MG ORAL TABLET Take one by mouth daily ATORVASTATIN CALCIUM 69053011485 Active Robbie Busby MD Active ISOSORBIDE DINITRATE 30 MG ORAL TABLET Take one by mouth daily ISOSORBIDE DINITRATE 30 MG ORAL TABLET 385345 ISOSORBIDE DINITRATE Inactive NORVASC 10 MG ORAL TABLET 1 tablet by mouth daily NORVASC 10 MG ORAL TABLET 917736 AMLODIPINE BESYLATE Inactive AZITHROMYCIN 250 MG ORAL TABLET 2 tablets PO today---then, 1 tablet PO daily x 4 more days (and 1 optional refill) AZITHROMYCIN 250 MG ORAL TABLET 299631 AZITHROMYCIN Inactive CHERATUSSIN AC 100-10 MG/5ML ORAL SOLUTION 7.5 mL PO q 4-6 hrs PRN cough 2014 CHERATUSSIN AC 100-10 MG/5ML ORAL SOLUTION 863754 GUAIFENESIN-CODEINE Inactive VIIBRYD 40 MG ORAL TABLET take 1 tab po qday for depression. 2014 VIIBRYD 40 MG ORAL TABLET VILAZODONE HCL Inactive HYDRALAZINE HCL 25 MG ORAL TABLET 1 tablet by mouth tid for hypertension 2013 HYDRALAZINE HCL 25 MG ORAL TABLET 918496 HYDRALAZINE HCL Inactive SPIRONOLACTONE 50 MG ORAL TABLET 1 tablet by mouth twice a day SPIRONOLACTONE 50 MG ORAL TABLET 849482 SPIRONOLACTONE Inactive FENOFIBRATE 145 MG ORAL TABLET Take one by mouth daily FENOFIBRATE 145 MG ORAL TABLET 553722 FENOFIBRATE Inactive PROTONIX 40 MG INTRAVENOUS SOLUTION RECONSTITUTED 1 po qday for acid reflux PROTONIX 40 MG INTRAVENOUS SOLUTION RECONSTITUTED 887836 PANTOPRAZOLE SODIUM Inactive CEFDINIR 300 MG ORAL CAPSULE Take 1 cap po bid x 10 days CEFDINIR 300 MG ORAL CAPSULE 432161 CEFDINIR Inactive PREDNISONE 20 MG ORAL TABLET 1 tablet twice daily for 2 days, then 1 tablet once daily for 2 days PREDNISONE 20 MG ORAL TABLET 255963 PREDNISONE Inactive NYSTATIN 644733 UNIT/ML MOUTH/THROAT SUSPENSION 5mL po QID x 10 days NYSTATIN 973124 UNIT/ML MOUTH/THROAT SUSPENSION 209470 NYSTATIN Inactive BETADINE 10 % EXTERNAL SOLUTION wash with solution to treat follicultis 07/29 BETADINE 10 % EXTERNAL SOLUTION 5667665 POVIDONE-IODINE Inactive TRILEPTAL 150 MG ORAL TABLET 1 TAB PO Q HS TRILEPTAL 150 MG ORAL TABLET 340296 OXCARBAZEPINE Inactive LAMISIL 125 MG ORAL PACKET 1 TAB PO DAILY LAMISIL 125 MG ORAL PACKET TERBINAFINE HCL Inactive HYDROCHLOROTHIAZIDE TABLET Take one by mouth daily HYDROCHLOROTHIAZIDE TABLET HYDROCHLOROTHIAZIDE TABS Inactive HYDROCODONE-ACETAMINOPHEN 5-325 MG ORAL TABLET 1 tab by mouth BID prn back pain HYDROCODONE-ACETAMINOPHEN 5-325 MG ORAL TABLET 222311 HYDROCODONE-ACETAMINOPHEN Inactive HYDRALAZINE HCL 50 MG ORAL TABLET TWO BY MOUTH THREE TIMES DAILY HYDRALAZINE HCL 50 MG ORAL TABLET 416802 HYDRALAZINE HCL Inactive LEVAQUIN 500 MG ORAL TABLET 1 tablet by mouth daily for 7 days LEVAQUIN 500 MG ORAL TABLET 564701 LEVOFLOXACIN Inactive SPIRONOLACTONE 25 MG ORAL TABLET 4 tablets by mouth daily SPIRONOLACTONE 25 MG ORAL TABLET 878260 SPIRONOLACTONE Inactive MECLIZINE HCL 25 MG ORAL TABLET one 4 times a day as needed for dizziness MECLIZINE HCL 25 MG ORAL TABLET 570402 MECLIZINE HCL Inactive CLONIDINE HCL 0.2 MG ORAL TABLET 1 TAB BY MOUTH EVERY 8 HOURS CLONIDINE HCL 0.2 MG ORAL TABLET 180773 CLONIDINE HCL Inactive CYCLOBENZAPRINE HCL 10 MG ORAL TABLET 1 tablet by mouth three times daily as needed for muscle spasm/pain for 10 days CYCLOBENZAPRINE HCL 10 MG ORAL TABLET 888132 CYCLOBENZAPRINE HCL Inactive VITAMIN D3 00911 UNIT ORAL CAPSULE 2 CAPS PO WEEKLY VITAMIN D3 61875 UNIT ORAL CAPSULE CHOLECALCIFEROL Inactive FIORICET 50-300-40 MG ORAL CAPSULE take 1 tab po qday prn migraines. FIORICET 50-300-40 MG ORAL CAPSULE 784944 BUTALBITAL-APAP- CAFFEINE Inactive FLONASE 50 MCG/ACT NASAL SUSPENSION 1 spray each nostril twice daily for allergies and runny nose FLONASE 50 MCG/ACT NASAL SUSPENSION 2004142 FLUTICASONE PROPIONATE Inactive LORATADINE 10 MG ORAL TABLET 1 tablet by mouth daily for congestion and allergies. LORATADINE 10 MG ORAL TABLET 357140 LORATADINE Inactive NITROSTAT 0.4 MG SUBLINGUAL TABLET SUBLINGUAL PRN NITROSTAT 0.4 MG SUBLINGUAL TABLET SUBLINGUAL 033618 NITROGLYCERIN Inactive GUAIFENESIN ER 600 MG ORAL TABLET EXTENDED RELEASE 12 HOUR 1 tab po q am 2016 GUAIFENESIN ER 600 MG ORAL TABLET EXTENDED RELEASE 12 HOUR GUAIFENESIN Inactive ZITHROMAX 250 MG ORAL TABLET 2 po today, then 1 po q days 2-5 ZITHROMAX 250 MG ORAL TABLET 303646 AZITHROMYCIN Inactive TERBINAFINE HCL 250 MG ORAL TABLET 1 tab po qday for foot infection TERBINAFINE HCL 250 MG ORAL TABLET 007794 TERBINAFINE HCL Inactive KEFLEX 500 MG ORAL CAPSULE 1 po TID x 10 days KEFLEX 500 MG ORAL CAPSULE 527525 CEPHALEXIN Inactive BACTRIM DS 800-160 MG ORAL TABLET 1 tab by mouth twice daily 2015 BACTRIM DS 800-160 MG ORAL TABLET 308987 TRIMETHOPRIM- SULFAMETHOXAZOLE Inactive PREDNISONE 20 MG ORAL TABLET take 3 tabs daily for 3 days, 2 tabs daily for 3 days, 1 tab daily for 3 days, 1/2 tab daily for 4 days PREDNISONE 20 MG ORAL TABLET 575544 PREDNISONE Inactive Advance Directives Directive Description Start [...] AUTO - Chemistry sodium, serum 142 mmol/L 184-558 6232/07/17 carbon dioxide, venous blood 28.2 mmol/L 21.0-32.0 [...] % 11.0-15.0 platelet count 185 THOUSAND/UL 10*3/mm3 224-104 0076/04/14 mean platelet volume 10.9 fL 7.5-12.5 Lab Report: LIPID PANEL, TSH/899, T4, FREE/866 - Chemistry cholesterol, serum 220 mg/dL 534-705 5654/04/14 HDL cholesterol, serum 30 mg/dL > OR=40 [...] 1.80 ng/mL 0.00-4.00 Lab Report: VITAMIN D, 25-HYDROXY/90732 - Chemistry vitamin D 25-hydroxy, serum 25 ng/mL 30-100 Office Visit: Confusion, dizziness after fall - Basic LDL target level 130 mg/dL Office Visit: Confusion, dizziness after fall - Chemistry HDL cholesterol, serum, target level 40 mg/dL triglyceride, target level 150 mg/dL cholesterol, target level 200 mg/dL Encounters Code Encounter Date Provider Facility CPT-70032 Level 3 Est. Patient 15:40:49 CDT Robbie Busby MD [facility] CPT-96328 Level 4 Est. Patient 15:18:19 CDT Robbie Busby MD [facility] CPT-42930 Level 3 Est. Patient 09:00:37 CDT Rober Rodríguez [facility] CPT-94170 Level 3 Est. Patient 16:07:10 CDT Robbie Busby MD [facility] CPT-34756 Level 4 Est. Patient 11:56:16 CDT Erin Garsia [facility] CPT-20859 Level 3 Est. Patient 17:48:02 CDT Robbie Busby MD [facility] CPT-06465 Level 4 Est. Patient 12:00:49 [employer] Rober Rodríguez [facility] CPT-98387 Level 3 Est. Patient 09:16:37 CDT Robbie Busby MD [facility] CPT-71324 Level 3 Est. Patient 19:38:43 CDT Robbie Busby MD [facility] CPT-43581 Level 3 Est. Patient 11:53:38 CDT Robbie Busby MD [facility] CPT-64777 Level 4 Est. Patient 12:52:22 CDT Rober Rodríguez [facility] CPT-19643 Level 4 Est. Patient 22:55:17 CDT Robbie Busby MD [facility] CPT-84689 Level 3 Est. Patient 12:38:24 CDT Desmond Diaz DO [facility] CPT-12670 Level 4 Est. Patient 11:25:03 [employer]CR[employer]E [employer] Robbie Busby MD [facility] CPT-97524 Level 4 Est. Patient 14:50:10 CDT Robbie Busby MD [facility] CPT-09680 Level 4 Est. Patient 23:30:43 CDT Robbie Busby MD [facility] CPT-83762 Level 4 Est. Patient 10:30:43 CDT Robbie Busby MD [facility] CPT-22987 Level 3 Est. Patient 17:08:12 CDT Alex ALVAREZ [facility] CPT-17044 Level 4 Est. Patient 17:51:38 CDT Robbie Busby MD [facility] CPT-23632 Level 4 Est. Patient 14:00:21 CDT Robbie Busby MD [facility] CPT-21596 Level 4 Est. Patient 12:46:48 CDT Robbie Busby MD [facility] CPT-01179 Level 4 Est. Patient 13:34:33 CDT Robbie Busby MD [facility] CPT-24566 Level 4 Est. Patient 16:58:28 CDT Robbie Busby MD [facility] CPT-00426 Level 3 Est. Patient 19:36:53 CDT Alex Shaw [facility] CPT-98145 Level 3 Est. Patient 12:58:15 CDT Robbie Busby MD [facility] Procedures Code Procedure Name Date Entry Date Standard Description CPT-J1071 Depo Testosterone 200mg 10:22:56 [employer] CPT-11361 Abx/Therapy Injection 10:22:56 [employer] CPT-J1071 Depo Testosterone 200mg 15:40:23 CDT CPT-24735 Abx/Therapy Injection 15:40:23 CDT CPT-J1071 Depo Testosterone 200mg 14:20:43 CDT CPT-93740 Abx/Therapy Injection 14:20:43 CDT CPT-J1071 Depo Testosterone 200mg 14:17:22 CDT CPT-40571 Abx/Therapy Injection 14:17:22 CDT CPT-J1071 Depo Testosterone 200mg 09:03:53 CDT CPT-82416 Abx/Therapy Injection 09:03:53 CDT CPT-G0439 [facility] Annual Wellness Exam 16:47:44 CDT CPT-J1071 Depo Testosterone 200mg 09:06:28 CDT CPT-13709 Abx/Therapy Injection 09:06:28 CDT CPT-J1071 Depo Testosterone 200mg 08:30:01 CDT CPT-60370 Abx/Therapy Injection 08:30:01 CDT CPT-J1071 Depo Testosterone 200mg 08:24:00 CDT CPT-41238 Abx/Therapy Injection 08:24:00 CDT CPT-50268 Venipuncture Draw Fee 14:39:06 CDT CPT-99419 Ribs unilateral 2V - XRAY USE ONLY 12:10:11 CDT CPT-16040 First Vx - Ix admin for Medicare patients 16:32:53 CDT CPT-21905 Boostrix Intramuscular Suspension 5-2.5-18.5 16:32:53 CDT CPT-37045 TB Skin Test 11:42:28 CDT CPT-31312 Tdap 7yrs or > 11:42:28 CDT CPT-J0696 Rocephin 1000 mg (Ceftriaxone) 17:43:43 [employer]E [employer] CPT-J1040 Depo Medrol 80 mg (Methyl Prednisolone Acetate) 17:43: 43 [employer] CPT-J1100 Decadron 8mg (Dexamethasone) 17:43:42 [employer]E [employer] CPT-33232 Abx/Therapy Injection 17:43:42 [employer]CR[employer]E [employer] CPT-03363 Abx/Therapy Injection 17:43:42 [employer]CR[employer]E P[employer] CPT-J1040 Depo Medrol 80 mg (Methyl Prednisolone Acetate) 09:43: 34 [employer]CR[employer]E [employer] CPT-J1100 Decadron 8mg (Dexamethasone) 09:43:34 [employer]CR[employer]E [employer] CPT-J0696 Rocephin 1gm Inj Solr 09:43:34 [employer]CR[employer]E [employer] CPT-24939 Wound Culture - LAB USE ONLY 14:00:21 CDT CPT-I/D I/D Abscess 09:16:37 CDT CPT-86669 Venipuncture Draw Fee 15:20:23 CDT CPT-14234 Microalbumin - LAB USE ONLY 16:02:19 CDT CPT-84211 CBC - LAB USE ONLY 16:02:19 CDT CPT-45162 Venipuncture Draw Fee 16:02:19 CDT CPT-G0438 Initial Annual Wellness Exam 08:10:28 CDT CPT-52674 Venipuncture Draw Fee 13:07:17 CDT CPT-G0008 Administration of Influenza Virus Vaccine 16:09:59 CDT CPT-58059 Fluzone Quadrivalent Intramuscular Suspension 0.5 ML 16: 09:59 CDT CPT-30592 Spec Collection and Handling Fee 15:05:50 CDT
--- OUTSIDE RECORDS SUMMARY | 2018-04-18 12:16 | XMS REPORT | Clinical Summary ---
Author Author Admin, [facility] Organization [facility] Address Unknown Phone Unavailable Allergies, Adverse [...] Name ND Status Provider Patient Instruction NYSTATIN 601666 UNIT/ML M/T SUSP 5mL po QID x 10 days NYSTATIN 19157251860 No Longer Active Erin Garsia APRN Active PREDNISONE 20 MG TAB 1 tablet twice daily for 2 days, then 1 tablet once daily for 2 days PREDNISONE 97660769305 No Longer Active Robbie Busby MD Active CEFDINIR 300 MG ORAL CAPS Take 1 cap po bid x 10 days CEFDINIR 19038925462 No Longer Active Robbie Busby MD Active AMLODIPINE BESYLATE 10 MG TABS 1 tablet by mouth daily AMLODIPINE BESYLATE 36652301683 Active Robbie Busby MD Active CARVEDILOL 25 MG TABS 1 & 1/2 TAB po BID CARVEDILOL 28373175975 Active Robbie Busby MD Active VITAMIN D3 94937 UNIT CAPS 2 CAPS PO WEEKLY CHOLECALCIFEROL 60250082464 Active Erin Garsia FARE REGISTER REPAIRER Active NEXIUM 40 MG CPDR 1 cap by mouth daily ESOMEPRAZOLE MAGNESIUM 07877366158 Active Galileonila Negro Active PROTONIX 40 MG SOLR 1 po qday for acid reflux PANTOPRAZOLE SODIUM 41418453446 No Longer Active Gali Raida Active BETADINE 10 % EXT SOLN wash with solution to treat follicultis POVIDONE-IODINE 80539426470 Active Robbie Busby MD Active KEFLEX 500 MG CAP 1 po TID x 10 days CEPHALEXIN 57560194397 No Longer Active Robbie Busby MD Active FIORICET 50-300-40 MG ORAL CAPS take 1 tab po qday prn migraines. [id number] 29721021395 Active Robbie Busby MD Active TOPIRAMATE 50 MG ORAL TABS take 1 tab po BID for migraines. TOPIRAMATE 39655641679 Active Robbie Busby MD Active HYDRALAZINE HCL 50 MG ORAL TABS TWO BY MOUTH THREE TIMES DAILY HYDRALAZINE HCL 45355046589 Active Robbie Busby MD Active MECLIZINE HCL 25 MG TAB one 4 times a day as needed for dizziness MECLIZINE HCL 99355283558 Active Robbie Busby MD Active TRILEPTAL 150 MG ORAL TABS 1 TAB PO Q HS OXCARBAZEPINE 87731219951 Active Robbie Busby MD Active TEMAZEPAM 15 MG ORAL CAPS 1 TAB PO Q HS TEMAZEPAM 91901255680 Active Robbie Busby MD Active ALPRAZOLAM 2 MG ORAL TABS 1 TAB PO BID ALPRAZOLAM 42651786394 Active Robbie Busby MD Active FENOFIBRATE 145 MG TABS Take one by mouth daily FENOFIBRATE 21027151939 No Longer Active Robbie Busby MD Active LAMISIL 125 MG ORAL PACK 1 TAB PO DAILY TERBINAFINE HCL 81196964079 Active Robbie Busby MD Active SPIRONOLACTONE 50 MG TABS 1 tablet by mouth twice a day SPIRONOLACTONE 93373155225 No Longer Active Robbie Busby MD Active HYDRALAZINE HCL 25 MG TABS 1 tablet by mouth tid for hypertension HYDRALAZINE HCL 14329145815 No Longer Active Robbie Busby MD Active VIIBRYD 40 MG TABS take 1 tab po qday for depression. VILAZODONE HCL 70436093483 No Longer Active Robbie Busby MD Active TERBINAFINE HCL 250 MG TABS 1 tab po qday for foot infection 2014 TERBINAFINE HCL 26892573382 No Longer Active Robbie Busby MD Active GABAPENTIN 300 MG CAPS 1 po q hs for nerve pain GABAPENTIN 92996218142 Active Robbie Busby MD Active FLONASE 50 MCG/ACT SUSP 1 spray each nostril twice daily for allergies and runny nose FLUTICASONE PROPIONATE 14864687048 Active Robbie Busby MD Active CHERATUSSIN AC 100-10 MG/5ML ORAL SOLN 7.5 mL PO q 4-6 hrs PRN cough GUAIFENESIN-CODEINE 84592109161 No Longer Active Robbie Busby MD Active AZITHROMYCIN 250 MG ORAL TABS 2 tablets PO today---then, 1 tablet PO daily x 4 more days (and 1 optional refill) AZITHROMYCIN 92572101176 No Longer Active Robbie Busby MD Active CLONIDINE HCL 0.2 MG ORAL TABS 1 TAB BY MOUTH EVERY 8 HOURS CLONIDINE HCL 64713434318 Active Robbie Busby MD Active HYDROCHLOROTHIAZIDE TABS Take one by mouth daily HYDROCHLOROTHIAZIDE TABS 80166380280 Active Alex ALVAREZ Active NORVASC 10 MG TAB 1 tablet by mouth daily AMLODIPINE BESYLATE 04040825703 No Longer Active Alex ALVAREZ Active IMDUR 60 MG TAB CR take 1 tab po qday for blood pressure ISOSORBIDE MONONITRATE Active Robbie Busby MD Active ISOSORBIDE DINITRATE 30 MG TABS Take one by mouth daily ISOSORBIDE DINITRATE 62219649938 No Longer Active Robbie Busby MD Active VIIBRYD 40 MG TABS 1 TA B PO DAILY VILAZODONE HCL 75896066532 Active Robbie Busby MD Active LORATADINE 10 MG TABS 1 tablet by mouth daily for congestion and allergies. LORATADINE 87458675393 Active Robbie Busby MD Active ZITHROMAX 250 MG TAB 2 po today, then 1 po q days 2-5 AZITHROMYCIN 97502772313 No Longer Active Robbie Busby MD Active HYDROCODONE-ACETAMINOPHEN 5-325 MG TABS 1 tab by mouth BID prn back pain 2013 HYDROCODONE-ACETAMINOPHEN 63802429189 Active Robbie Busby MD Active [id number] 0.3 MG/24HR PTWK apply 2 patches q week for HTN CLONIDINE HCL 26620030057 Active Robbie Busby MD Active NITROSTAT 0.4 MG SUBL PRN NITROGLYCERIN 02728588494 Active Robbie Busby MD Active DOXAZOSIN MESYLATE 4 MG TABS Take one by mouth daily DOXAZOSIN MESYLATE 48176301394 Active Robbie Busby MD Active TOPROL XL 200 MG [id number] Take one by mouth daily METOPROLOL SUCCINATE 76871853371 Active Robbie Busby MD Active VENLAFAXINE HCL ER 150 MG [id number] Take one by mouth daily VENLAFAXINE HCL 88461799947 Active Robbie Busby MD Active LIPITOR 40 MG TABS Take one by mouth daily ATORVASTATIN CALCIUM 78682011963 Active Robbie Busby MD Active ISOSORBIDE DINITRATE 30 MG TABS Take one by mouth daily ISOSORBIDE DINITRATE 30 MG TABS 337099 ISOSORBIDE DINITRATE Inactive NORVASC 10 MG TAB 1 tablet by mouth daily NORVASC 10 MG TAB 619967 AMLODIPINE BESYLATE Inactive AZITHROMYCIN 250 MG ORAL TABS 2 tablets PO today---then, 1 tablet PO daily x 4 more days (and 1 optional refill) AZITHROMYCIN 250 MG ORAL TABS 7382142 AZITHROMYCIN Inactive CHERATUSSIN AC 100-10 MG/5ML ORAL SOLN 7.5 mL PO q 4-6 hrs PRN cough CHERATUSSIN AC 100-10 MG/5ML ORAL SOLN 021905 GUAIFENESIN- CODEINE Inactive VIIBRYD 40 MG TABS take 1 tab po qday for depression. VIIBRYD 40 MG TABS VILAZODONE HCL Inactive HYDRALAZINE HCL 25 MG TABS 1 tablet by mouth tid for hypertension HYDRALAZINE HCL 25 MG TABS 721881 HYDRALAZINE HCL Inactive SPIRONOLACTONE 50 MG TABS 1 tablet by mouth twice a day SPIRONOLACTONE 50 MG TABS 793476 SPIRONOLACTONE Inactive FENOFIBRATE 145 MG TABS Take one by mouth daily FENOFIBRATE 145 MG TABS 369438 FENOFIBRATE Inactive PROTONIX 40 MG SOLR 1 po qday for acid reflux PROTONIX 40 MG SOLR 740039 PANTOPRAZOLE SODIUM Inactive CEFDINIR 300 MG ORAL CAPS Take 1 cap po bid x 10 days CEFDINIR 300 MG ORAL CAPS 716266 CEFDINIR Inactive PREDNISONE 20 MG TAB 1 tablet twice daily for 2 days, then 1 tablet once daily for 2 days PREDNISONE 20 MG TAB 012202 PREDNISONE Inactive NYSTATIN 897730 UNIT/ML M/T SUSP 5mL po QID x 10 days NYSTATIN 772987 UNIT/ML M/T SUSP 813047 NYSTATIN Inactive ZITHROMAX 250 MG TAB 2 po today, then 1 po q days 2-5 ZITHROMAX 250 MG TAB 8173140 AZITHROMYCIN Inactive TERBINAFINE HCL 250 MG TABS 1 tab po qday for foot infection 2014 TERBINAFINE HCL 250 MG TABS 625762 TERBINAFINE HCL Inactive KEFLEX 500 MG CAP 1 po TID x 10 days KEFLEX 500 MG CAP 882589 CEPHALEXIN Inactive Advance Directives Directive Description Start [...] Acid - Chemistry sodium, serum 139 mmol/L 985-620 8922/04/22 carbon dioxide, venous blood 29.4 mmol/L 21.0-32.0 [...] to Follow Negative Lab Report: VITAMIN D, 25-HYDROXY/89779 - Chemistry vitamin D 25-hydroxy, serum 23 ng/mL 30-100 Encounters Code Encounter Date Provider Facility CPT-59350 Level 4 Est. Patient 22:55:17 CDT Robbie Busby MD [facility] CPT-53905 Level 3 Est. Patient 12:38:24 CDT Desmond Diaz DO [facility] CPT-13801 Level 4 Est. 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 Patient 14:50:10 CDT Robbie Busby MD [facility] CPT-31327 Level 4 Est. Patient 23:30:43 CDT Robbie Busby MD [facility] CPT-31543 Level 4 Est. Patient 10:30:43 CDT Robbie Busby MD [facility] CPT-42704 Level 3 Est. Patient 17:08:12 CDT Alex ALVAREZ [facility] CPT-23553 Level 4 Est. Patient 17:51:38 CDT Robbie Busby MD [facility] CPT-85171 Level 4 Est. Patient 14:00:21 CDT Robbie Busby MD [facility] CPT-70536 Level 4 Est. Patient 12:46:48 CDT Robbie Busby MD [facility] CPT-03458 Level 4 Est. Patient 13:34:33 CDT Robbie Busby MD [facility] CPT-01301 Level 4 Est. Patient 16:58:28 CDT Robbie Busby MD [facility] CPT-22659 Level 3 Est. Patient 19:36:53 CDT lAex Shaw [facility] CPT-45367 Level 3 Est. Patient 12:58:15 CDT Robbie Busby MD [facility] Procedures Code Procedure Name Date Entry Date Standard Description CPT-96950 Microalbumin - LAB USE ONLY 16:02:19 CDT CPT-34660 CBC - LAB USE ONLY 16:02:19 CDT CPT-40440 Venipuncture Draw Fee 16:02:19 CDT CPT-G0438 Initial Annual Wellness Exam 08:10:28 CDT CPT-09197 Venipuncture Draw Fee 13:07:17 CDT CPT-G0008 Administration of Influenza Virus Vaccine 16:09:59 CDT CPT-12556 Fluzone Quadrivalent Intramuscular Suspension 0.5 ML 16: 09:59 CDT CPT-02722 Spec Collection and Handling Fee 15:05:50 CDT
--- OUTSIDE RECORDS SUMMARY | 2018-04-18 12:16 | XMS REPORT | Clinical Summary ---
Author Author Admin, [facility] Organization [facility] Address Unknown Phone Unavailable Allergies, Adverse [...] Name NDC Status Provider Patient Instruction NYSTATIN 019438 UNIT/ML M/T SUSP 5mL po QID x 10 days NYSTATIN 76924414803 No Longer Active Erin Garsia APRN Active PREDNISONE 20 MG TAB 1 tablet twice daily for 2 days, then 1 tablet once daily for 2 days PREDNISONE 32126523829 No Longer Active Robbie Busby MD Active CEFDINIR 300 MG ORAL CAPS Take 1 cap po bid x 10 days CEFDINIR 74148089238 No Longer Active Robbie Busby MD Active AMLODIPINE BESYLATE 10 MG TABS 1 tablet by mouth daily AMLODIPINE BESYLATE 36118118527 Active Robbie Busby MD Active CARVEDILOL 25 MG TABS 1 & 1/2 TAB po BID CARVEDILOL 63460918229 Active Robbie Busby MD Active VITAMIN D3 10888 UNIT CAPS 2 CAPS PO WEEKLY CHOLECALCIFEROL 92637996984 Active Erin Garsia 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 [id number] 33639850927 Active Robbie Busby MD Active TOPIRAMATE 50 MG ORAL TABS take 1 tab po BID for migraines. TOPIRAMATE 49614633117 Active Robbie Busby MD Active HYDRALAZINE HCL 50 MG ORAL TABS TWO BY MOUTH THREE TIMES DAILY HYDRALAZINE HCL 64610082678 Active Robbie Busby MD Active MECLIZINE HCL 25 MG TAB one 4 times a day as needed for dizziness MECLIZINE HCL 37988760083 Active Robbie Busby MD Active TRILEPTAL 150 MG ORAL TABS 1 TAB PO Q HS OXCARBAZEPINE 26665800512 Active Robbie Busby MD Active TEMAZEPAM 15 MG ORAL CAPS 1 TAB PO Q HS TEMAZEPAM 58631607416 Active Robbie Busby MD Active ALPRAZOLAM 2 MG ORAL TABS 1 TAB PO BID ALPRAZOLAM 57538904592 Active Robbie Busby MD Active FENOFIBRATE 145 MG TABS Take one by mouth daily FENOFIBRATE 57644857148 No Longer Active Robbie Busby MD Active LAMISIL 125 MG ORAL PACK 1 TAB PO DAILY TERBINAFINE HCL 61207000015 Active Robbie Busby MD Active SPIRONOLACTONE 50 MG TABS 1 tablet by mouth twice a day SPIRONOLACTONE 11562036840 No Longer Active Robbie Busby MD Active HYDRALAZINE HCL 25 MG TABS 1 tablet by mouth tid for hypertension HYDRALAZINE HCL 69032512658 No Longer Active Robbie Busby MD Active VIIBRYD 40 MG TABS take 1 tab po qday for depression. VILAZODONE HCL 32875628443 No Longer Active Robbie Busby MD Active TERBINAFINE HCL 250 MG TABS 1 tab po qday for foot infection 2014 TERBINAFINE HCL 05868880419 No Longer Active Robbie Busby MD Active GABAPENTIN 300 MG CAPS 1 po q hs for nerve pain GABAPENTIN 75186856275 Active Robbie Busby MD Active FLONASE 50 MCG/ACT SUSP 1 spray each nostril twice daily for allergies and runny nose FLUTICASONE PROPIONATE 71048397453 Active Robbie Busby MD Active CHERATUSSIN AC 100-10 MG/5ML ORAL SOLN 7.5 mL PO q 4-6 hrs PRN cough GUAIFENESIN-CODEINE 39515329532 No Longer Active Robbie Busby MD Active AZITHROMYCIN 250 MG ORAL TABS 2 tablets PO today---then, 1 tablet PO daily x 4 more days (and 1 optional refill) AZITHROMYCIN 10175769897 No Longer Active Robbie Busby MD Active CLONIDINE HCL 0.2 MG ORAL TABS 1 TAB BY MOUTH EVERY 8 HOURS CLONIDINE HCL 62903515439 Active Robbie Busby MD Active HYDROCHLOROTHIAZIDE TABS Take one by mouth daily HYDROCHLOROTHIAZIDE TABS 40206652323 Active Alex ALVAREZ Active NORVASC 10 MG TAB 1 tablet by mouth daily AMLODIPINE BESYLATE 63262779797 No Longer Active Alex ALVAREZ Active IMDUR 60 MG TAB CR take 1 tab po qday for blood pressure ISOSORBIDE MONONITRATE Active Robbie Busby MD Active ISOSORBIDE DINITRATE 30 MG TABS Take one by mouth daily ISOSORBIDE DINITRATE 77448861040 No Longer Active Robbie Busby MD Active VIIBRYD 40 MG TABS 1 TA B PO DAILY VILAZODONE HCL 69731464957 Active Robbie Busby MD Active LORATADINE 10 MG TABS 1 tablet by mouth daily for congestion and allergies. LORATADINE 65439073193 Active Robbie Busby MD Active ZITHROMAX 250 MG TAB 2 po today, then 1 po q days 2-5 AZITHROMYCIN 61049726436 No Longer Active Robbie Busby MD Active HYDROCODONE-ACETAMINOPHEN 5-325 MG TABS 1 tab by mouth BID prn back pain 2013 HYDROCODONE-ACETAMINOPHEN 34649845355 Active Robbie Busby MD Active [id number] 0.3 MG/24HR PTWK apply 2 patches q week for HTN CLONIDINE HCL 58132743835 Active Robbie Busby MD Active NITROSTAT 0.4 MG SUBL PRN NITROGLYCERIN 55730015317 Active Robbie Busby MD Active DOXAZOSIN MESYLATE 4 MG TABS Take one by mouth daily DOXAZOSIN MESYLATE 92624217932 Active Robbie Busby MD Active TOPROL XL 200 MG QI20O-VQA Take one by mouth daily METOPROLOL SUCCINATE 63414717776 Active Robbie Busby MD Active VENLAFAXINE HCL ER 150 MG [id number]-ESS Take one by mouth daily VENLAFAXINE HCL 74101533144 Active Robbie Busby MD Active LIPITOR 40 MG TABS Take one by mouth daily ATORVASTATIN CALCIUM 17340216147 Active Robbie Busby MD Active ISOSORBIDE DINITRATE 30 MG TABS Take one by mouth daily ISOSORBIDE DINITRATE 30 MG TABS 806391 ISOSORBIDE DINITRATE Inactive NORVASC 10 MG TAB 1 tablet by mouth daily NORVASC 10 MG TAB 274964 AMLODIPINE BESYLATE Inactive AZITHROMYCIN 250 MG ORAL TABS 2 tablets PO today---then, 1 tablet PO daily x 4 more days (and 1 optional refill) AZITHROMYCIN 250 MG ORAL TABS 8475505 AZITHROMYCIN Inactive CHERATUSSIN AC 100-10 MG/5ML ORAL SOLN 7.5 mL PO q 4-6 hrs PRN cough CHERATUSSIN AC 100-10 MG/5ML ORAL SOLN 960788 GUAIFENESIN- CODEINE Inactive VIIBRYD 40 MG TABS take 1 tab po qday for depression. VIIBRYD 40 MG TABS VILAZODONE HCL Inactive HYDRALAZINE HCL 25 MG TABS 1 tablet by mouth tid for hypertension HYDRALAZINE HCL 25 MG TABS 056360 HYDRALAZINE HCL Inactive SPIRONOLACTONE 50 MG TABS 1 tablet by mouth twice a day SPIRONOLACTONE 50 MG TABS 488081 SPIRONOLACTONE Inactive FENOFIBRATE 145 MG TABS Take one by mouth daily FENOFIBRATE 145 MG TABS 106928 FENOFIBRATE Inactive PROTONIX 40 MG SOLR 1 po qday for acid reflux PROTONIX 40 MG SOLR 812622 PANTOPRAZOLE SODIUM Inactive CEFDINIR 300 MG ORAL CAPS Take 1 cap po bid x 10 days CEFDINIR 300 MG ORAL CAPS 819047 CEFDINIR Inactive PREDNISONE 20 MG TAB 1 tablet twice daily for 2 days, then 1 tablet once daily for 2 days PREDNISONE 20 MG TAB 283761 PREDNISONE Inactive NYSTATIN 356588 UNIT/ML M/T SUSP 5mL po QID x 10 days NYSTATIN 213645 UNIT/ML M/T SUSP 619623 NYSTATIN Inactive ZITHROMAX 250 MG TAB 2 po today, then 1 po q days 2-5 ZITHROMAX 250 MG TAB 7461685 AZITHROMYCIN Inactive TERBINAFINE HCL 250 MG TABS 1 tab po qday for foot infection 2014 TERBINAFINE HCL 250 MG TABS 270250 TERBINAFINE HCL Inactive KEFLEX 500 MG CAP 1 po TID x 10 days KEFLEX 500 MG CAP 909034 CEPHALEXIN Inactive Advance Directives Directive Description Start [...] Acid - Chemistry sodium, serum 139 mmol/L 002-179 8207/04/22 carbon dioxide, venous blood 29.4 mmol/L 21.0-32.0 [...] to Follow Negative Lab Report: VITAMIN D, 25-HYDROXY/59707 - Chemistry vitamin D 25-hydroxy, serum 23 ng/mL 30-100 Encounters Code Encounter Date Provider Facility CPT-52741 Level 4 Est. Patient 22:55:17 CDT Robbie Busby MD [facility] CPT-72902 Level 3 Est. Patient 12:38:24 CDT Desmond Diaz DO [facility] CPT-59374 Level 4 Est. 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 Patient 14:50:10 CDT Robbie Busby MD [facility] CPT-97162 Level 4 Est. Patient 23:30:43 CDT Robbie Busby MD [facility] CPT-16500 Level 4 Est. Patient 10:30:43 CDT Robbie Busby MD [facility] CPT-09185 Level 3 Est. Patient 17:08:12 CDT Alex ALVAREZ [facility] CPT-50391 Level 4 Est. Patient 17:51:38 CDT Robbie Busby MD [facility] CPT-40980 Level 4 Est. Patient 14:00:21 CDT Robbie Busby MD [facility] CPT-99073 Level 4 Est. Patient 12:46:48 CDT Robbie Busby MD [facility] CPT-08199 Level 4 Est. Patient 13:34:33 CDT Robbie Busby MD [facility] CPT-99825 Level 4 Est. Patient 16:58:28 CDT Robbie Busby MD [facility] CPT-25383 Level 3 Est. Patient 19:36:53 CDT Alex Shaw [facility] CPT-40544 Level 3 Est. Patient 12:58:15 CDT Robbie Busby MD [facility] Procedures Code Procedure Name Date Entry Date Standard Description CPT-G0438 Initial Annual Wellness Exam 08:10:28 CDT CPT-97291 Venipuncture Draw Fee 13:07:17 CDT CPT-G0008 Administration of Influenza Virus Vaccine 16:09:59 CDT CPT-70104 Fluzone Quadrivalent Intramuscular Suspension 0.5 ML 16: 09:59 CDT CPT-24862 Spec Collection and Handling Fee 15:05:50 CDT
--- OUTSIDE RECORDS SUMMARY | 2018-04-18 12:17 | XMS REPORT | Clinical Summary ---
Author Author Admin, E Organization [facility] Address Unknown Phone Unavailable Allergies, [...] unspecified sites URI 465.9 Active Rboer Rodríguez DEBURR TECHNICIAN Acute upper respiratory infections of unspecified site Hypertension 401.9 Active Rober Rodríguez DEBURR TECHNICIAN Unspecified essential hypertension Sinusitis - acute [...] Status Provider Patient Instruction GUAIFENESIN 600 MG [id number] 1 tab po q am GUAIFENESIN 17952949960 No Longer Active Robbie Busby MD Active DIVALPROEX SODIUM ER 500 MG ORAL TABLET EXTENDED RELEASE 24 HOUR Once daily DIVALPROEX SODIUM 88290719179 Active Robbie Busby MD Active DEPO-TESTOSTERONE 200 MG/ML IM SOLN 1 IM Injections every 2 weeks for low testosterone TESTOSTERONE CYPIONATE 01626384881 Active Zulema Blank LPN Active CYCLOBENZAPRINE HCL 10 MG ORAL TABS 1 po TID PRN muscle spasm/pain for 10 days CYCLOBENZAPRINE HCL 57390196499 Active JONATHAN Moncada Active FLUTICASONE PROPIONATE 50 MCG/ACT SUSP 2 sprays per nostril bid for 1 week, then 1 spray bid FLUTICASONE PROPIONATE 18290023579 Active Jillina Anne DEBURR TECHNICIAN Active HYDRALAZINE HCL 25 MG ORAL TABS Take 1 tab BID. HYDRALAZINE HCL 37362041049 Active Agnieszkaina Anne DEBURR TECHNICIAN Active VITAMIN D3 15081 UNIT ORAL TABS 2 po weekly CHOLECALCIFEROL 58867207038 Active Robbie Busby MD Active OXYCODONE HCL ER 10 MG ORAL T12A 1 tab po 3 times qd. OXYCODONE HCL 81674992964 Active Robbie Busby MD Active NITROSTAT 0.4 MG SUBL PRN NITROGLYCERIN 77279246105 No Longer Active Robbie Busby MD Active LORATADINE 10 MG TABS 1 tablet by mouth daily for congestion and allergies. LORATADINE 03532664225 No Longer Active Robbie Busby MD Active FLONASE 50 MCG/ACT SUSP 1 spray each nostril twice daily for allergies and runny nose FLUTICASONE PROPIONATE 59787440859 No Longer Active Robbie Busby MD Active FIORICET 50-300-40 MG ORAL CAPS take 1 tab po qday prn migraines. [id number] 69384904552 No Longer Active Robbie Busby MD Active VITAMIN D3 97034 UNIT CAPS 2 CAPS PO WEEKLY CHOLECALCIFEROL 50810134633 No Longer Active Robbie Busby MD Active CYCLOBENZAPRINE HCL 10 MG TABS 1 tablet by mouth three times daily as needed for muscle spasm/pain for 10 days CYCLOBENZAPRINE HCL 02468796139 No Longer Active Robbie Busby MD Active PREDNISONE 20 MG TAB take 3 tabs daily for 3 days, 2 tabs daily for 3 days, 1 tab daily for 3 days, 1/2 tab daily for 4 days PREDNISONE 71933322769 No Longer Active Erin Garsia APRN Active CLONIDINE HCL 0.2 MG ORAL TABS 1 TAB BY MOUTH EVERY 8 HOURS 12/29 CLONIDINE HCL 26020030406 No Longer Active Erin Garsia APRN Active MECLIZINE HCL 25 MG TAB one 4 times a day as needed for dizziness MECLIZINE HCL 39346058904 No Longer Active Erin Garsia APRN Active SPIRONOLACTONE 25 MG TAB 4 tablets by mouth daily SPIRONOLACTONE 71179193175 No Longer Active Erin Garsia APRN Active LEVAQUIN 500 MG TAB 1 tablet by mouth daily for 7 days LEVOFLOXACIN 24710531431 No Longer Active Erin Garsia APRN Active BACTRIM DS 800-160 MG TAB 1 tab by mouth twice daily TRIMETHOPRIM-SULFAMETHOXAZOLE 17412166994 No Longer Active Robbie Busby MD Active HYDRALAZINE HCL 50 MG ORAL TABS TWO BY MOUTH THREE TIMES DAILY HYDRALAZINE HCL 60373567563 No Longer Active Jillld Rodríguez APRN Active HYDROCODONE-ACETAMINOPHEN 5-325 MG TABS 1 tab by mouth BID prn back pain 2013 HYDROCODONE-ACETAMINOPHEN 06705984274 No Longer Active Jillina Frakierstenl DEBURR TECHNICIAN Active HYDROCHLOROTHIAZIDE TABS Take one by mouth daily HYDROCHLOROTHIAZIDE TABS 66183436155 No Longer Active Jillina Frazell DEBURR TECHNICIAN Active LAMISIL 125 MG ORAL PACK 1 TAB PO DAILY TERBINAFINE HCL 45734436633 No Longer Active Jillina Frazell DEBURR TECHNICIAN Active TRILEPTAL 150 MG ORAL TABS 1 TAB PO Q HS OXCARBAZEPINE 55869139903 No Longer Active Jillina Frakierstenl DEBURR TECHNICIAN Active BETADINE 10 % EXT SOLN wash with solution to treat follicultis POVIDONE-IODINE 71682590619 No Longer Active Rober Rodríguez APRN Active NYSTATIN 334203 UNIT/ML M/T SUSP 5mL po QID x 10 days NYSTATIN 13734909650 No Longer Active Erin Garsia APRN Active PREDNISONE 20 MG TAB 1 tablet twice daily for 2 days, then 1 tablet once daily for 2 days PREDNISONE 36386887283 No Longer Active Robbie Busby MD Active CEFDINIR 300 MG ORAL CAPS Take 1 cap po bid x 10 days CEFDINIR 77175026323 No Longer Active Robbie Busby MD Active AMLODIPINE BESYLATE 10 MG TABS 1 tablet by mouth daily AMLODIPINE BESYLATE 82264495803 Active Robbie Busby MD Active CARVEDILOL 25 MG TABS 1 & 1/2 TAB po BID CARVEDILOL 13205457665 Active Robbie Busby MD Active NEXIUM 40 MG CPDR 1 cap by mouth daily ESOMEPRAZOLE MAGNESIUM 30509089469 Active Robbie Busby MD Active PROTONIX 40 MG SOLR 1 po qday for acid reflux PANTOPRAZOLE SODIUM 53317546770 No Longer Active Gali Raida Active KEFLEX 500 MG CAP 1 po TID x 10 days CEPHALEXIN 30128451668 No Longer Active Robbie Busby MD Active TOPIRAMATE 50 MG ORAL TABS take 1 tab po BID for migraines. TOPIRAMATE 08363001078 Active Robbie Busby MD Active TEMAZEPAM 15 MG ORAL CAPS 1 TAB PO Q HS TEMAZEPAM 23814615893 Active Robbie Busby MD Active ALPRAZOLAM 2 MG ORAL TABS 1 TAB PO BID ALPRAZOLAM 52587870577 Active Robbie Busby MD Active FENOFIBRATE 145 MG TABS Take one by mouth daily FENOFIBRATE 74618374075 No Longer Active Robbie Busby MD Active SPIRONOLACTONE 50 MG TABS 1 tablet by mouth twice a day SPIRONOLACTONE 63714223411 No Longer Active Robbie Busby MD Active HYDRALAZINE HCL 25 MG TABS 1 tablet by mouth tid for hypertension HYDRALAZINE HCL 75418473041 No Longer Active Robbie Busby MD Active VIIBRYD 40 MG TABS take 1 tab po qday for depression. VILAZODONE HCL 25753814531 No Longer Active Robbie Busby MD Active TERBINAFINE HCL 250 MG TABS 1 tab po qday for foot infection 2014 TERBINAFINE HCL 63963767023 No Longer Active Robbie Busby MD Active GABAPENTIN 300 MG CAPS 1 po q hs for nerve pain GABAPENTIN 58751168955 Active Robbie Busby MD Active CHERATUSSIN AC 100-10 MG/5ML ORAL SOLN 7.5 mL PO q 4-6 hrs PRN cough GUAIFENESIN-CODEINE 91647077417 No Longer Active Robbie Busby MD Active AZITHROMYCIN 250 MG ORAL TABS 2 tablets PO today---then, 1 tablet PO daily x 4 more days (and 1 optional refill) AZITHROMYCIN 99255221865 No Longer Active Robbie Busby MD Active NORVASC 10 MG TAB 1 tablet by mouth daily AMLODIPINE BESYLATE 67374855554 No Longer Active Alex ALVAREZ Active IMDUR 60 MG TAB CR take 1 tab po qday for blood pressure ISOSORBIDE MONONITRATE Active Robbie Busby MD Active ISOSORBIDE DINITRATE 30 MG TABS Take one by mouth daily ISOSORBIDE DINITRATE 74166974298 No Longer Active Robbie Busby MD Active VIIBRYD 40 MG TABS 1 TA B PO DAILY VILAZODONE HCL 67917573592 Active Robbie Busby MD Active ZITHROMAX 250 MG TAB 2 po today, then 1 po q days 2-5 AZITHROMYCIN 05319895233 No Longer Active Robbie Busby MD Active [id number]-7 0.3 MG/24HR PTWK apply 2 patches q week for HTN CLONIDINE HCL 70235953201 Active Robbie Busby MD Active DOXAZOSIN MESYLATE 4 MG TABS Take one by mouth daily DOXAZOSIN MESYLATE 89966668030 Active Robbie Busby MD Active TOPROL XL 200 MG [id number] Take one by mouth daily METOPROLOL SUCCINATE 27720818088 Active Robbie Busby MD Active VENLAFAXINE HCL ER 150 MG [id number] Take one by mouth daily VENLAFAXINE HCL 74640058030 Active Robbie Busby MD Active LIPITOR 40 MG TABS Take one by mouth daily ATORVASTATIN CALCIUM 49019169695 Active Robbie Busby MD Active ISOSORBIDE DINITRATE 30 MG TABS Take one by mouth daily ISOSORBIDE DINITRATE 30 MG TABS 500688 ISOSORBIDE DINITRATE Inactive NORVASC 10 MG TAB 1 tablet by mouth daily NORVASC 10 MG TAB 916816 AMLODIPINE BESYLATE Inactive AZITHROMYCIN 250 MG ORAL TABS 2 tablets PO today---then, 1 tablet PO daily x 4 more days (and 1 optional refill) AZITHROMYCIN 250 MG ORAL TABS 102290 AZITHROMYCIN Inactive CHERATUSSIN AC 100-10 MG/5ML ORAL SOLN 7.5 mL PO q 4-6 hrs PRN cough CHERATUSSIN AC 100-10 MG/5ML ORAL SOLN 415071 GUAIFENESIN- CODEINE Inactive VIIBRYD 40 MG TABS take 1 tab po qday for depression. VIIBRYD 40 MG TABS VILAZODONE HCL Inactive HYDRALAZINE HCL 25 MG TABS 1 tablet by mouth tid for hypertension HYDRALAZINE HCL 25 MG TABS 561580 HYDRALAZINE HCL Inactive SPIRONOLACTONE 50 MG TABS 1 tablet by mouth twice a day SPIRONOLACTONE 50 MG TABS 054123 SPIRONOLACTONE Inactive FENOFIBRATE 145 MG TABS Take one by mouth daily FENOFIBRATE 145 MG TABS 632229 FENOFIBRATE Inactive PROTONIX 40 MG SOLR 1 po qday for acid reflux PROTONIX 40 MG SOLR 849203 PANTOPRAZOLE SODIUM Inactive CEFDINIR 300 MG ORAL CAPS Take 1 cap po bid x 10 days CEFDINIR 300 MG ORAL CAPS 421527 CEFDINIR Inactive PREDNISONE 20 MG TAB 1 tablet twice daily for 2 days, then 1 tablet once daily for 2 days PREDNISONE 20 MG TAB 417333 PREDNISONE Inactive NYSTATIN 897517 UNIT/ML M/T SUSP 5mL po QID x 10 days NYSTATIN 059042 UNIT/ML M/T SUSP 834694 NYSTATIN Inactive BETADINE 10 % EXT SOLN wash with solution to treat follicultis BETADINE 10 % EXT SOLN 8563417 POVIDONE-IODINE Inactive TRILEPTAL 150 MG ORAL TABS 1 TAB PO Q HS TRILEPTAL 150 MG ORAL TABS 459789 OXCARBAZEPINE Inactive LAMISIL 125 MG ORAL PACK 1 TAB PO DAILY LAMISIL 125 MG ORAL PACK TERBINAFINE HCL Inactive HYDROCHLOROTHIAZIDE TABS Take one by mouth daily HYDROCHLOROTHIAZIDE TABS HYDROCHLOROTHIAZIDE TABS Inactive HYDROCODONE-ACETAMINOPHEN 5-325 MG TABS 1 tab by mouth BID prn back pain 2013 HYDROCODONE-ACETAMINOPHEN 5-325 MG TABS 652270 HYDROCODONE -ACETAMINOPHEN Inactive HYDRALAZINE HCL 50 MG ORAL TABS TWO BY MOUTH THREE TIMES DAILY HYDRALAZINE HCL 50 MG ORAL TABS 586485 HYDRALAZINE HCL Inactive LEVAQUIN 500 MG TAB 1 tablet by mouth daily for 7 days LEVAQUIN 500 MG TAB 915540 LEVOFLOXACIN Inactive SPIRONOLACTONE 25 MG TAB 4 tablets by mouth daily SPIRONOLACTONE 25 MG TAB 292801 SPIRONOLACTONE Inactive MECLIZINE HCL 25 MG TAB one 4 times a day as needed for dizziness MECLIZINE HCL 25 MG TAB 401607 MECLIZINE HCL Inactive CLONIDINE HCL 0.2 MG ORAL TABS 1 TAB BY MOUTH EVERY 8 HOURS 12/29 CLONIDINE HCL 0.2 MG ORAL TABS 757351 CLONIDINE HCL Inactive CYCLOBENZAPRINE HCL 10 MG TABS 1 tablet by mouth three times daily as needed for muscle spasm/pain for 10 days CYCLOBENZAPRINE HCL 10 MG TABS 709462 CYCLOBENZAPRINE HCL Inactive VITAMIN D3 55595 UNIT CAPS 2 CAPS PO WEEKLY VITAMIN D3 21527 UNIT CAPS CHOLECALCIFEROL Inactive FIORICET 50-300-40 MG ORAL CAPS take 1 tab po qday prn migraines. FIORICET 50-300-40 MG ORAL CAPS 852888 [id number] Inactive FLONASE 50 MCG/ACT SUSP 1 spray each nostril twice daily for allergies and runny nose FLONASE 50 MCG/ACT SUSP 7927297 FLUTICASONE PROPIONATE Inactive LORATADINE 10 MG TABS 1 tablet by mouth daily for congestion and allergies. LORATADINE 10 MG TABS 657233 LORATADINE Inactive NITROSTAT 0.4 MG SUBL PRN NITROSTAT 0.4 MG SUBL 153861 NITROGLYCERIN Inactive GUAIFENESIN 600 MG NL51D-OAL 1 tab po q am GUAIFENESIN 600 MG [id number] GUAIFENESIN Inactive ZITHROMAX 250 MG TAB 2 po today, then 1 po q days 2-5 ZITHROMAX 250 MG TAB 467211 AZITHROMYCIN Inactive TERBINAFINE HCL 250 MG TABS 1 tab po qday for foot infection 2014 TERBINAFINE HCL 250 MG TABS 464395 TERBINAFINE HCL Inactive KEFLEX 500 MG CAP 1 po TID x 10 days KEFLEX 500 MG CAP 567805 CEPHALEXIN Inactive BACTRIM DS 800-160 MG TAB 1 tab by mouth twice daily BACTRIM DS 800-160 MG TAB 450326 TRIMETHOPRIM-SULFAMETHOXAZOLE Inactive PREDNISONE 20 MG TAB take 3 tabs daily for 3 days, 2 tabs daily for 3 days, 1 tab daily for 3 days, 1/2 tab daily for 4 days PREDNISONE 20 MG TAB 029819 PREDNISONE Inactive Advance Directives Directive Description Start [...] AUTO - Chemistry sodium, serum 142 mmol/L 255-723 6322/07/17 carbon dioxide, venous blood 28.2 mmol/L 21.0-32.0 [...] % 11.0-15.0 platelet count 185 THOUSAND/UL 10*3/mm3 151-918 5962/04/14 mean platelet volume 10.9 fL 7.5-12.5 Lab Report: LIPID PANEL, TSH/899, T4, FREE/866 - Chemistry cholesterol, serum 220 mg/dL 112-221 3960/04/14 HDL cholesterol, serum 30 mg/dL > OR=40 [...] 1.80 ng/mL 0.00-4.00 Lab Report: VITAMIN D, 25-HYDROXY/86544 - Chemistry vitamin D 25-hydroxy, serum 25 ng/mL 30-100 Office Visit: Confusion, dizziness after fall - Basic LDL target level 130 mg/dL Office Visit: Confusion, dizziness after fall - Chemistry HDL cholesterol, serum, target level 40 mg/dL triglyceride, target level 150 mg/dL cholesterol, target level 200 mg/dL Encounters Code Encounter Date Provider Facility CPT-95495 Level 3 Est. Patient 15:40:49 CDT Robbie Busby MD [facility] CPT-31145 Level 4 Est. Patient 15:18:19 CDT Robbie Busby MD [facility] CPT-12447 Level 3 Est. Patient 09:00:37 CDT Rober Rodríguez [facility] CPT-42645 Level 3 Est. Patient 16:07:10 CDT Robbie Busby MD [facility] CPT-87833 Level 4 Est. Patient 11:56:16 CDT Erin Garsia [facility] CPT-34586 Level 3 Est. Patient 17:48:02 CDT Robbie Busby MD [facility] CPT-97238 Level 4 Est. Patient 12:00:49 MAINTENANCE ASSISTANT Rober Rodríguez [facility] CPT-61957 Level 3 Est. Patient 09:16:37 CDT Robbie Busby MD [facility] CPT-49926 Level 3 Est. Patient 19:38:43 CDT Robbie Busby MD [facility] CPT-51465 Level 3 Est. Patient 11:53:38 CDT Robbie Busby MD [facility] CPT-39459 Level 4 Est. Patient 12:52:22 CDT Rober Rodríguez [facility] CPT-02301 Level 4 Est. Patient 22:55:17 CDT Robbie Busby MD [facility] CPT-51536 Level 3 Est. Patient 12:38:24 CDT Desmond Diaz DO [facility] CPT-09395 Level 4 Est. Patient 11:25:03 MAINTENANCE ASSISTANT Robbie Busby MD [facility] CPT-95381 Level 4 Est. Patient 14:50:10 CDT Robbie Busby MD [facility] CPT-66173 Level 4 Est. Patient 23:30:43 CDT Robbie Busby MD [facility] CPT-83979 Level 4 Est. Patient 10:30:43 CDT Robbie Busby MD [facility] CPT-84442 Level 3 Est. Patient 17:08:12 CDT Alex Shaw [facility] CPT-25116 Level 4 Est. Patient 17:51:38 CDT Robbie Busby MD [facility] CPT-31512 Level 4 Est. Patient 14:00:21 CDT Robbie Busby MD [facility] CPT-56469 Level 4 Est. Patient 12:46:48 CDT Robbie Busby MD [facility] CPT-56805 Level 4 Est. Patient 13:34:33 CDT Robbie Busby MD [facility] CPT-12405 Level 4 Est. Patient 16:58:28 CDT Robbie Busby MD [facility] CPT-76950 Level 3 Est. Patient 19:36:53 CDT Alex Shaw [facility] CPT-93472 Level 3 Est. Patient 12:58:15 CDT Robbie Busby MD [facility] Procedures Code Procedure Name Date Entry Date Standard Description CPT-J1071 Depo Testosterone 200mg 15:40:23 CDT CPT-10984 Abx/Therapy Injection 15:40:23 CDT CPT-J1071 Depo Testosterone 200mg 14:20:43 CDT CPT-48377 Abx/Therapy Injection 14:20:43 CDT CPT-J1071 Depo Testosterone 200mg 14:17:22 CDT CPT-63710 Abx/Therapy Injection 14:17:22 CDT CPT-J1071 Depo Testosterone 200mg 09:03:53 CDT CPT-32559 Abx/Therapy Injection 09:03:53 CDT CPT-G0439 [facility] Annual Wellness Exam 16:47:44 CDT CPT-J1071 Depo Testosterone 200mg 09:06:28 CDT CPT-13246 Abx/Therapy Injection 09:06:28 CDT CPT-J1071 Depo Testosterone 200mg 08:30:01 CDT CPT-19350 Abx/Therapy Injection 08:30:01 CDT CPT-J1071 Depo Testosterone 200mg 08:24:00 CDT CPT-11836 Abx/Therapy Injection 08:24:00 CDT CPT-97235 Venipuncture Draw Fee 14:39:06 CDT CPT-48314 Ribs unilateral 2V - XRAY USE ONLY 12:10:11 CDT CPT-47768 First Vx - Ix admin for Medicare patients 16:32:53 CDT CPT-27958 Boostrix Intramuscular Suspension 5-2.5-18.5 16:32:53 CDT CPT-53868 TB Skin Test 11:42:28 CDT CPT-41051 Tdap 7yrs or > 11:42:28 CDT CPT-J0696 Rocephin 1000 mg (Ceftriaxone) 17:43:43 MAINTENANCE ASSISTANT CPT-J1040 Depo Medrol 80 mg (Methyl Prednisolone Acetate) 17:43: 43 MAINTENANCE ASSISTANT CPT-J1100 Decadron 8mg (Dexamethasone) 17:43:42 MAINTENANCE ASSISTANT CPT-22393 Abx/Therapy Injection 17:43:42 MAINTENANCE ASSISTANT CPT-25668 Abx/Therapy Injection 17:43:42 MAINTENANCE ASSISTANT CPT-J1040 Depo Medrol 80 mg (Methyl Prednisolone Acetate) 09:43: 34 MAINTENANCE ASSISTANT CPT-J1100 Decadron 8mg (Dexamethasone) 09:43:34 MAINTENANCE ASSISTANT CPT-J0696 Rocephin 1gm Inj Solr 09:43:34 MAINTENANCE ASSISTANT CPT-48170 Wound Culture - LAB USE ONLY 14:00:21 CDT CPT-I/D I/D Abscess 09:16:37 CDT CPT-10421 Venipuncture Draw Fee 15:20:23 CDT CPT-14421 Microalbumin - LAB USE ONLY 16:02:19 CDT CPT-35168 CBC - LAB USE ONLY 16:02:19 CDT CPT-64163 Venipuncture Draw Fee 16:02:19 CDT CPT-G0438 Initial Annual Wellness Exam 08:10:28 CDT CPT-61999 Venipuncture Draw Fee 13:07:17 CDT CPT-G0008 Administration of Influenza Virus Vaccine 16:09:59 CDT CPT-12198 Fluzone Quadrivalent Intramuscular Suspension 0.5 ML 16: 09:59 CDT CPT-25523 Spec Collection and Handling Fee 15:05:50 CDT
--- OUTSIDE RECORDS SUMMARY | 2018-04-18 12:18 | XMS REPORT | Clinical Summary ---
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 Desmond Diaz DO Other malignant secondary hypertension Tachycardia 785.0 Active Rober Rodríguez MARINE BIOLOGIST Tachycardia, unspecified Insect bite, infected 919.5 Resolved Desmond Diaz DO Insect bite, nonvenomous, of other, multiple, and unspecified sites, infected Abscess, skin 682.9 Resolved Desmond Diaz DO Cellulitis and abscess of unspecified sites URI 465.9 Resolved Desmond Diaz DO Acute upper respiratory infections of unspecified site Hypertension 401.9 Active Rober Rodríguez MARINE BIOLOGIST Unspecified essential hypertension Sinusitis - acute 461.9 [...] Hypogonadism, low testosterone 257.2 Active Erin Garsia MARINE BIOLOGIST Other testicular hypofunction Low back pain, chronic 724.2 Active Robbie Busby MD Lumbago Bronchitis-Acute 466.0 Inactive Desmond Diaz DO Acute bronchitis Polydipsia 783.5 Active Desmond Howell Joe DO Polydipsia Type 2 diabetes mellitus with hyperglycemia Active Robbie Busby MD Low back pain, acute ICD-724.2 Inactive Emily Atwood LPN Low back pain, chronic ICD-724.2 Inactive Emily Atwood LPN Bronchitis, acute ICD-466.0 Inactive Emily Atwood DIRECTOR QUALITY ASSURANCE Onychomycosis, toenails ICD-110.1 Inactive Emily Atwood DIRECTOR QUALITY ASSURANCE Dizziness ICD-780.4 Inactive Emily Atwood DIRECTOR QUALITY ASSURANCE 2017 Folliculitis ICD-704.8 Inactive Emily Atwood DIRECTOR QUALITY ASSURANCE Pharyngitis-Acute ICD-462 Inactive Emily Atwood DIRECTOR QUALITY ASSURANCE Fatigue ICD-780.79 Inactive Emily Atwood DIRECTOR QUALITY ASSURANCE 09/20 Hypertension, secondary, malignant ICD-405.09 Inactive Emily Atwood DIRECTOR QUALITY ASSURANCE Insect bite, infected ICD-919.5 Inactive Emily Atwood DIRECTOR QUALITY ASSURANCE Abscess, skin ICD-682.9 Inactive Emily Atwood DIRECTOR QUALITY ASSURANCE URI ICD-465.9 Inactive Emily Atwood DIRECTOR QUALITY ASSURANCE Sinusitis - acute ICD-461.9 Inactive Emily Atwood DIRECTOR QUALITY ASSURANCE Acute confusion ICD-293.0 Inactive Emily Atwood DIRECTOR QUALITY ASSURANCE Headache ICD-784.0 Inactive Emily Atwood DIRECTOR QUALITY ASSURANCE 09/20 Back pain ICD-724.5 Inactive Emily Atwood DIRECTOR QUALITY ASSURANCE 2017 Rib pain, right sided ICD-786.50 Inactive Emily Atwood DIRECTOR QUALITY ASSURANCE Myalgias ICD-729.1 Inactive Emily Atwood DIRECTOR QUALITY ASSURANCE 09/20 URI ICD-465.9 Inactive Emily Atwood LPN Bronchitis-Acute ICD-466.0 Inactive Desmond Diaz DO Sinusitis ICD-461.9 Inactive Emily Atwood LPN 2017 Medication List Medication Instructions Start Date Stop Date Generic Name NDC Status Provider Patient Instruction CYCLOBENZAPRINE HCL 10 MG ORAL TABLET 1 tablet by mouth three times daily as needed for muscle spasm/pain CYCLOBENZAPRINE HCL 64560188780 Active Robbie Busby MD Active METFORMIN HCL 500 MG ORAL TABLET 1 tablet by mouth daily for diabetes type 2 METFORMIN HCL 67005694383 Active Robbie Busby MD Active SINGULAIR 10 MG ORAL TABLET 1 po qday for allergies. MONTELUKAST SODIUM 33134376160 Active Robbie Busby MD Active PREDNISONE 20 MG ORAL TABLET two tabs by mouth today, then one tab by mouth days two and three PREDNISONE 44390143153 No Longer Active Robbie Busby MD Active TOPIRAMATE 50 MG ORAL TABLET 1 po BID for migraines TOPIRAMATE 48657449523 Active JONATAHN Moncada Active AZITHROMYCIN 250 MG ORAL TABLET 2 po qd x 1 day, then 1 po qd x 4 days 09/20 AZITHROMYCIN 68768990589 No Longer Active Desmond Diaz DO Active TOPIRAMATE 50 MG ORAL TABLET take 1 tab po BID for migraines. TOPIRAMATE 86399937659 No Longer Active Desmond Diaz DO Active CYCLOBENZAPRINE HCL 10 MG ORAL TABLET 1 po TID PRN muscle spasm/pain for 10 days CYCLOBENZAPRINE HCL 92852462317 No Longer Active Desmond Diaz DO Active GUAIFENESIN ER 600 MG ORAL TABLET EXTENDED RELEASE 12 HOUR 1 tab po q am 2016 GUAIFENESIN 23619031242 No Longer Active Robbie Busby MD Active DIVALPROEX SODIUM ER 500 MG ORAL TABLET EXTENDED RELEASE 24 HOUR Once daily DIVALPROEX SODIUM 64904248748 Active Robbie Busby MD Active DEPO-TESTOSTERONE 200 MG/ML INTRAMUSCULAR SOLUTION 1 IM Injections every 2 weeks for low testosterone TESTOSTERONE CYPIONATE 68607992829 Active Zulema Blank LPN Active FLUTICASONE PROPIONATE 50 MCG/ACT NASAL SUSPENSION 2 sprays per nostril bid for 1 week, then 1 spray bid FLUTICASONE PROPIONATE 59155558188 Active Rober Rodríguez APRN Active HYDRALAZINE HCL 25 MG ORAL TABLET Take 1 tab BID. HYDRALAZINE HCL 55321217386 Active Rober Rodríguez APRN Active VITAMIN D3 72507 UNIT ORAL TABLET 2 po weekly CHOLECALCIFEROL 89419148487 Active Robbie Busby MD Active OXYCODONE HCL ER 10 MG ORAL TABLET ER 12 HOUR ABUSE-DETERRENT 1 tab po 3 times qd. OXYCODONE HCL 22504396807 Active Robbie Busby MD Active NITROSTAT 0.4 MG SUBLINGUAL TABLET SUBLINGUAL PRN NITROGLYCERIN 38326733809 No Longer Active Robbie Busby MD Active LORATADINE 10 MG ORAL TABLET 1 tablet by mouth daily for congestion and allergies. LORATADINE 96970748932 No Longer Active Robbie Busby MD Active FLONASE 50 MCG/ACT NASAL SUSPENSION 1 spray each nostril twice daily for allergies and runny nose FLUTICASONE PROPIONATE 60900229710 No Longer Active Robbie Busby MD Active FIORICET 50-300-40 MG ORAL CAPSULE take 1 tab po qday prn migraines. [id number] 77813075769 No Longer Active Robbie Busby MD Active VITAMIN D3 57770 UNIT ORAL CAPSULE 2 CAPS PO WEEKLY CHOLECALCIFEROL 30249722910 No Longer Active Robbie Busby MD Active CYCLOBENZAPRINE HCL 10 MG ORAL TABLET 1 tablet by mouth three times daily as needed for muscle spasm/pain for 10 days CYCLOBENZAPRINE HCL 05368828873 No Longer Active Robbie Busby MD Active PREDNISONE 20 MG ORAL TABLET take 3 tabs daily for 3 days, 2 tabs daily for 3 days, 1 tab daily for 3 days, 1/2 tab daily for 4 days PREDNISONE 82739875821 No Longer Active Erin Garsia APRN Active CLONIDINE HCL 0.2 MG ORAL TABLET 1 TAB BY MOUTH EVERY 8 HOURS CLONIDINE HCL 14782607794 No Longer Active Erin Garsia APRN Active MECLIZINE HCL 25 MG ORAL TABLET one 4 times a day as needed for dizziness MECLIZINE HCL 94891176879 No Longer Active Erin Garsia APRN Active SPIRONOLACTONE 25 MG ORAL TABLET 4 tablets by mouth daily SPIRONOLACTONE 88599488102 No Longer Active Erin Garsia APRN Active LEVAQUIN 500 MG ORAL TABLET 1 tablet by mouth daily for 7 days LEVOFLOXACIN 92495849387 No Longer Active Erin Garsia APRN Active BACTRIM DS 800-160 MG ORAL TABLET 1 tab by mouth twice daily 2015 TRIMETHOPRIM-SULFAMETHOXAZOLE 44170547174 No Longer Active Robbie Busby MD Active HYDRALAZINE HCL 50 MG ORAL TABLET TWO BY MOUTH THREE TIMES DAILY HYDRALAZINE HCL 96564792662 No Longer Active Rober Rodríguez APRN Active HYDROCODONE-ACETAMINOPHEN 5-325 MG ORAL TABLET 1 tab by mouth BID prn back pain HYDROCODONE-ACETAMINOPHEN 70206762413 No Longer Active Rober Rodríguez APRN Active HYDROCHLOROTHIAZIDE TABLET Take one by mouth daily HYDROCHLOROTHIAZIDE TABS 09086660255 No Longer Active Rober Rodríguez APRN Active LAMISIL 125 MG ORAL PACKET 1 TAB PO DAILY TERBINAFINE HCL 61178489451 No Longer Active Rober Rodríguez APRN Active TRILEPTAL 150 MG ORAL TABLET 1 TAB PO Q HS OXCARBAZEPINE 93830453599 No Longer Active Jillina Frazell MARINE BIOLOGIST Active BETADINE 10 % EXTERNAL SOLUTION wash with solution to treat follicultis 07/29 POVIDONE-IODINE 85789734323 No Longer Active Rober Rdoríguez APRN Active NYSTATIN 479727 UNIT/ML MOUTH/THROAT SUSPENSION 5mL po QID x 10 days NYSTATIN 30157636764 No Longer Active Erin Garsia APRN Active PREDNISONE 20 MG ORAL TABLET 1 tablet twice daily for 2 days, then 1 tablet once daily for 2 days PREDNISONE 91461255266 No Longer Active Robbie Busby MD Active CEFDINIR 300 MG ORAL CAPSULE Take 1 cap po bid x 10 days CEFDINIR 49020851216 No Longer Active Robbie Busby MD Active AMLODIPINE BESYLATE 10 MG ORAL TABLET 1 tablet by mouth daily AMLODIPINE BESYLATE 16718432556 Active Robbie Busby MD Active CARVEDILOL 25 MG ORAL TABLET 1 & 1/2 TAB po BID CARVEDILOL 75839120871 Active Robbie Busby MD Active NEXIUM 40 MG ORAL CAPSULE DELAYED RELEASE 1 cap by mouth daily ESOMEPRAZOLE MAGNESIUM 16159017132 Active Robbie Busby MD Active PROTONIX 40 MG INTRAVENOUS SOLUTION RECONSTITUTED 1 po qday for acid reflux PANTOPRAZOLE SODIUM 25288740110 No Longer Active Gali Raida Active KEFLEX 500 MG ORAL CAPSULE 1 po TID x 10 days CEPHALEXIN 45191380183 No Longer Active Robbie Busby MD Active TEMAZEPAM 15 MG ORAL CAPSULE 1 TAB PO Q HS TEMAZEPAM 81043964630 Active Robbie Busby MD Active ALPRAZOLAM 2 MG ORAL TABLET 1 TAB PO BID ALPRAZOLAM 42614125927 Active Robbie Busby MD Active FENOFIBRATE 145 MG ORAL TABLET Take one by mouth daily FENOFIBRATE 97287230307 No Longer Active Robbie Busby MD Active SPIRONOLACTONE 50 MG ORAL TABLET 1 tablet by mouth twice a day SPIRONOLACTONE 58841725857 No Longer Active Robbie Busby MD Active HYDRALAZINE HCL 25 MG ORAL TABLET 1 tablet by mouth tid for hypertension 2013 HYDRALAZINE HCL 95583350920 No Longer Active oRbbie Busby MD Active VIIBRYD 40 MG ORAL TABLET take 1 tab po qday for depression. 2014 VILAZODONE HCL 45796473091 No Longer Active Robbie Busby MD Active TERBINAFINE HCL 250 MG ORAL TABLET 1 tab po qday for foot infection TERBINAFINE HCL 80314569564 No Longer Active Robbie Busby MD Active GABAPENTIN 300 MG ORAL CAPSULE 1 po q hs for nerve pain GABAPENTIN 07298155471 Active Robbie Busby MD Active CHERATUSSIN AC 100-10 MG/5ML ORAL SOLUTION 7.5 mL PO q 4-6 hrs PRN cough 2014 GUAIFENESIN-CODEINE 07055993457 No Longer Active Robbie Busby MD Active AZITHROMYCIN 250 MG ORAL TABLET 2 tablets PO today---then, 1 tablet PO daily x 4 more days (and 1 optional refill) AZITHROMYCIN 68293534065 No Longer Active Robbie Busby MD Active NORVASC 10 MG ORAL TABLET 1 tablet by mouth daily AMLODIPINE BESYLATE 68048090132 No Longer Active Alex ALVAREZ Active IMDUR 60 MG ORAL TABLET EXTENDED RELEASE 24 HOUR take 1 tab po qday for blood pressure ISOSORBIDE MONONITRATE 84385809174 Active Robbie Busby MD Active ISOSORBIDE DINITRATE 30 MG ORAL TABLET Take one by mouth daily ISOSORBIDE DINITRATE 80284367949 No Longer Active Robbie Busby MD Active VIIBRYD 40 MG ORAL TABLET 1 TA B PO DAILY VILAZODONE HCL 12300075561 Active Robbie Busby MD Active ZITHROMAX 250 MG ORAL TABLET 2 po today, then 1 po q days 2-5 AZITHROMYCIN 90551719689 No Longer Active Robbie Busby MD Active RDNTBFAM-GYG-4 0.3 MG/24HR TRANSDERMAL PATCH WEEKLY apply 2 patches q week for HTN CLONIDINE HCL 21268708296 Active Robbie Busby MD Active DOXAZOSIN MESYLATE 4 MG ORAL TABLET Take one by mouth daily DOXAZOSIN MESYLATE 95875420407 Active Robbie Busby MD Active TOPROL XL 200 MG ORAL TABLET EXTENDED RELEASE 24 HOUR Take one by mouth daily METOPROLOL SUCCINATE 27840299512 Active Robbie Busby MD Active VENLAFAXINE HCL ER 150 MG ORAL TABLET EXTENDED RELEASE 24 HOUR Take one by mouth daily VENLAFAXINE HCL 34007886889 Active Robbie Busby MD Active LIPITOR 40 MG ORAL TABLET Take one by mouth daily ATORVASTATIN CALCIUM 76875363440 Active Robbie Busby MD Active ISOSORBIDE DINITRATE 30 MG ORAL TABLET Take one by mouth daily ISOSORBIDE DINITRATE 30 MG ORAL TABLET 732919 ISOSORBIDE DINITRATE Inactive NORVASC 10 MG ORAL TABLET 1 tablet by mouth daily NORVASC 10 MG ORAL TABLET 234819 AMLODIPINE BESYLATE Inactive AZITHROMYCIN 250 MG ORAL TABLET 2 tablets PO today---then, 1 tablet PO daily x 4 more days (and 1 optional refill) AZITHROMYCIN 250 MG ORAL TABLET 970609 AZITHROMYCIN Inactive CHERATUSSIN AC 100-10 MG/5ML ORAL SOLUTION 7.5 mL PO q 4-6 hrs PRN cough 2014 CHERATUSSIN AC 100-10 MG/5ML ORAL SOLUTION 607077 GUAIFENESIN-CODEINE Inactive VIIBRYD 40 MG ORAL TABLET take 1 tab po qday for depression. 2014 VIIBRYD 40 MG ORAL TABLET VILAZODONE HCL Inactive HYDRALAZINE HCL 25 MG ORAL TABLET 1 tablet by mouth tid for hypertension 2013 HYDRALAZINE HCL 25 MG ORAL TABLET 614339 HYDRALAZINE HCL Inactive SPIRONOLACTONE 50 MG ORAL TABLET 1 tablet by mouth twice a day SPIRONOLACTONE 50 MG ORAL TABLET 229627 SPIRONOLACTONE Inactive FENOFIBRATE 145 MG ORAL TABLET Take one by mouth daily FENOFIBRATE 145 MG ORAL TABLET 862053 FENOFIBRATE Inactive PROTONIX 40 MG INTRAVENOUS SOLUTION RECONSTITUTED 1 po qday for acid reflux PROTONIX 40 MG INTRAVENOUS SOLUTION RECONSTITUTED 170763 PANTOPRAZOLE SODIUM Inactive CEFDINIR 300 MG ORAL CAPSULE Take 1 cap po bid x 10 days CEFDINIR 300 MG ORAL CAPSULE 764444 CEFDINIR Inactive PREDNISONE 20 MG ORAL TABLET 1 tablet twice daily for 2 days, then 1 tablet once daily for 2 days PREDNISONE 20 MG ORAL TABLET 095932 PREDNISONE Inactive NYSTATIN 932282 UNIT/ML MOUTH/THROAT SUSPENSION 5mL po QID x 10 days NYSTATIN 996312 UNIT/ML MOUTH/THROAT SUSPENSION 043236 NYSTATIN Inactive BETADINE 10 % EXTERNAL SOLUTION wash with solution to treat follicultis 07/29 BETADINE 10 % EXTERNAL SOLUTION 5627582 POVIDONE-IODINE Inactive TRILEPTAL 150 MG ORAL TABLET 1 TAB PO Q HS TRILEPTAL 150 MG ORAL TABLET 243221 OXCARBAZEPINE Inactive LAMISIL 125 MG ORAL PACKET 1 TAB PO DAILY LAMISIL 125 MG ORAL PACKET TERBINAFINE HCL Inactive HYDROCHLOROTHIAZIDE TABLET Take one by mouth daily HYDROCHLOROTHIAZIDE TABLET HYDROCHLOROTHIAZIDE TABS Inactive HYDROCODONE-ACETAMINOPHEN 5-325 MG ORAL TABLET 1 tab by mouth BID prn back pain HYDROCODONE-ACETAMINOPHEN 5-325 MG ORAL TABLET 398727 HYDROCODONE-ACETAMINOPHEN Inactive HYDRALAZINE HCL 50 MG ORAL TABLET TWO BY MOUTH THREE TIMES DAILY HYDRALAZINE HCL 50 MG ORAL TABLET 754720 HYDRALAZINE HCL Inactive LEVAQUIN 500 MG ORAL TABLET 1 tablet by mouth daily for 7 days LEVAQUIN 500 MG ORAL TABLET 802859 LEVOFLOXACIN Inactive SPIRONOLACTONE 25 MG ORAL TABLET 4 tablets by mouth daily SPIRONOLACTONE 25 MG ORAL TABLET 327525 SPIRONOLACTONE Inactive MECLIZINE HCL 25 MG ORAL TABLET one 4 times a day as needed for dizziness MECLIZINE HCL 25 MG ORAL TABLET 645202 MECLIZINE HCL Inactive CLONIDINE HCL 0.2 MG ORAL TABLET 1 TAB BY MOUTH EVERY 8 HOURS CLONIDINE HCL 0.2 MG ORAL TABLET 741347 CLONIDINE HCL Inactive CYCLOBENZAPRINE HCL 10 MG ORAL TABLET 1 tablet by mouth three times daily as needed for muscle spasm/pain for 10 days CYCLOBENZAPRINE HCL 10 MG ORAL TABLET 202408 CYCLOBENZAPRINE HCL Inactive VITAMIN D3 45455 UNIT ORAL CAPSULE 2 CAPS PO WEEKLY VITAMIN D3 22746 UNIT ORAL CAPSULE CHOLECALCIFEROL Inactive FIORICET 50-300-40 MG ORAL CAPSULE take 1 tab po qday prn migraines. FIORICET 50-300-40 MG ORAL CAPSULE 417585 BUTALBITAL-APAP- CAFFEINE Inactive FLONASE 50 MCG/ACT NASAL SUSPENSION 1 spray each nostril twice daily for allergies and runny nose FLONASE 50 MCG/ACT NASAL SUSPENSION 0251394 FLUTICASONE PROPIONATE Inactive LORATADINE 10 MG ORAL TABLET 1 tablet by mouth daily for congestion and allergies. LORATADINE 10 MG ORAL TABLET 180337 LORATADINE Inactive NITROSTAT 0.4 MG SUBLINGUAL TABLET SUBLINGUAL PRN NITROSTAT 0.4 MG SUBLINGUAL TABLET SUBLINGUAL 867407 NITROGLYCERIN Inactive GUAIFENESIN ER 600 MG ORAL TABLET EXTENDED RELEASE 12 HOUR 1 tab po q am 2016 GUAIFENESIN ER 600 MG ORAL TABLET EXTENDED RELEASE 12 HOUR GUAIFENESIN Inactive CYCLOBENZAPRINE HCL 10 MG ORAL TABLET 1 po TID PRN muscle spasm/pain for 10 days CYCLOBENZAPRINE HCL 10 MG ORAL TABLET 369667 CYCLOBENZAPRINE HCL Inactive TOPIRAMATE 50 MG ORAL TABLET take 1 tab po BID for migraines. TOPIRAMATE 50 MG ORAL TABLET 105038 TOPIRAMATE Inactive PREDNISONE 20 MG ORAL TABLET two tabs by mouth today, then one tab by mouth days two and three PREDNISONE 20 MG ORAL TABLET 009193 PREDNISONE Inactive ZITHROMAX 250 MG ORAL TABLET 2 po today, then 1 po q days 2-5 ZITHROMAX 250 MG ORAL TABLET 454021 AZITHROMYCIN Inactive TERBINAFINE HCL 250 MG ORAL TABLET 1 tab po qday for foot infection TERBINAFINE HCL 250 MG ORAL TABLET 214643 TERBINAFINE HCL Inactive KEFLEX 500 MG ORAL CAPSULE 1 po TID x 10 days KEFLEX 500 MG ORAL CAPSULE 854775 CEPHALEXIN Inactive BACTRIM DS 800-160 MG ORAL TABLET 1 tab by mouth twice daily 2015 BACTRIM DS 800-160 MG ORAL TABLET 165007 TRIMETHOPRIM- SULFAMETHOXAZOLE Inactive PREDNISONE 20 MG ORAL TABLET take 3 tabs daily for 3 days, 2 tabs daily for 3 days, 1 tab daily for 3 days, 1/2 tab daily for 4 days PREDNISONE 20 MG ORAL TABLET 603169 PREDNISONE Inactive AZITHROMYCIN 250 MG ORAL TABLET 2 po qd x 1 day, then 1 po qd x 4 days 09/20 AZITHROMYCIN 250 MG ORAL TABLET 758413 AZITHROMYCIN Inactive Advance Directives Directive Description Start [...] AUTO - Chemistry sodium, serum 142 mmol/L 884-273 6186/07/17 carbon dioxide, venous blood 28.2 mmol/L 21.0-32.0 [...] % 11.0-15.0 platelet count 185 THOUSAND/UL 10*3/mm3 303-804 4243/04/14 mean platelet volume 10.9 fL 7.5-12.5 Lab Report: HGBA1C, Basic Metabolic Panel - Chemistry hemoglobin A1C, blood, as % of total hemoglobin 6.9 % 4.3-6.0 sodium, serum 139 mmol/L 612-457 3217/01/04 potassium, serum 3.9 mmol/L 3.5-5.2 chloride, serum 103 mmol/L 98-107 carbon dioxide, venous blood 26.9 mmol/L 21.0-32.0 blood glucose 106 mg/dL 65-110 calcium, serum 9.0 mg/dL 8.5-10.1 urea nitrogen, blood 20 mg/dL 7-18 creatinine, serum 1.46 mg/dL 0.60-1.30 Lab Report: LIPID PANEL, TSH/899, T4, FREE/866 - Chemistry cholesterol, serum 220 mg/dL 539-804 7941/04/14 HDL cholesterol, serum 30 mg/dL > OR=40 [...] 1.80 ng/mL 0.00-4.00 Lab Report: VITAMIN D, 25-HYDROXY/57204 - Chemistry vitamin D 25-hydroxy, serum 25 ng/mL 30-100 Office Visit: Confusion, dizziness after fall - Basic LDL target level 130 mg/dL Office Visit: Confusion, dizziness after fall - Chemistry HDL cholesterol, serum, target level 40 mg/dL triglyceride, target level 150 mg/dL cholesterol, target level 200 mg/dL Encounters Code Encounter Date Provider Facility CPT-83220 Level 4 Est. Patient 13:07:39 OUTDOOR ADVENTURE INSTRUCTOR Robbie Busby MD [facility] CPT-83865 Level 4 Est. Patient 15:23:44 OUTDOOR ADVENTURE INSTRUCTOR Desmond Diaz [facility] CPT-75036 Level 3 Est. Patient 15:40:49 CDT Robbie Busby MD [facility] CPT-39169 Level 4 Est. Patient 15:18:19 CDT Robbie Busby MD [facility] CPT-69030 Level 3 Est. Patient 09:00:37 CDT Rober Rodríguez [facility] CPT-54578 Level 3 Est. Patient 16:07:10 CDT Robbie Busby MD [facility] CPT-00627 Level 4 Est. Patient 11:56:16 CDT Erin Gasria [facility] CPT-11149 Level 3 Est. Patient 17:48:02 CDT Robbie Busby MD [facility] CPT-28081 Level 4 Est. Patient 12:00:49 OUTDOOR ADVENTURE INSTRUCTOR Rober Rodríguez [facility] CPT-17398 Level 3 Est. Patient 09:16:37 CDT Robbie Busby MD [facility] CPT-58128 Level 3 Est. Patient 19:38:43 CDT Robbie Busby MD [facility] CPT-64192 Level 3 Est. Patient 11:53:38 CDT Robbie Busby MD [facility] CPT-59064 Level 4 Est. Patient 12:52:22 CDT Rober Rodríguez [facility] CPT-40418 Level 4 Est. Patient 22:55:17 CDT Robbie Busby MD [facility] CPT-85109 Level 3 Est. Patient 12:38:24 CDT Desmond Diaz [facility] CPT-90209 Level 4 Est. Patient 11:25:03 OUTDOOR ADVENTURE INSTRUCTOR Robbie Busby MD [facility] CPT-42336 Level 4 Est. Patient 14:50:10 CDT Robbie Busby MD [facility] CPT-52700 Level 4 Est. Patient 23:30:43 CDT Robbie Busby MD [facility] CPT-93474 Level 4 Est. Patient 10:30:43 CDT Robbie Busby MD [facility] CPT-05735 Level 3 Est. Patient 17:08:12 CDT [facility] CPT-72965 Level 4 Est. Patient 17:51:38 CDT Robbie Busby MD [facility] CPT-87990 Level 4 Est. Patient 14:00:21 CDT Robbie Busby MD [facility] CPT-23715 Level 4 Est. Patient 12:46:48 CDT Robbie Busby MD [facility] CPT-73302 Level 4 Est. Patient 13:34:33 CDT Robbie Busby MD [facility] CPT-23283 Level 4 Est. Patient 16:58:28 CDT Robbie Busby MD [facility] CPT-92641 Level 3 Est. Patient 19:36:53 CDT Alex ALVAREZ [facility] CPT-18674 Level 3 Est. Patient 12:58:15 CDT Robbie Busby MD [facility] Procedures Code Procedure Name Date Entry Date Standard Description CPT-J1071 Depo Testosterone 200mg 15:33:58 OUTDOOR ADVENTURE INSTRUCTOR CPT-00830 Abx/Therapy Injection 15:33:58 OUTDOOR ADVENTURE INSTRUCTOR CPT-J1071 Depo Testosterone 200mg 09:38:36 OUTDOOR ADVENTURE INSTRUCTOR CPT-08002 Abx/Therapy Injection 09:38:36 OUTDOOR ADVENTURE INSTRUCTOR CPT-J1071 Depo Testosterone 200mg 10:22:56 OUTDOOR ADVENTURE INSTRUCTOR CPT-45232 Abx/Therapy Injection 10:22:56 OUTDOOR ADVENTURE INSTRUCTOR CPT-J1071 Depo Testosterone 200mg 15:40:23 CDT CPT-95732 Abx/Therapy Injection 15:40:23 CDT CPT-J1071 Depo Testosterone 200mg 14:20:43 CDT CPT-04656 Abx/Therapy Injection 14:20:43 CDT CPT-J1071 Depo Testosterone 200mg 14:17:22 CDT CPT-05342 Abx/Therapy Injection 14:17:22 CDT CPT-J1071 Depo Testosterone 200mg 09:03:53 CDT CPT-38733 Abx/Therapy Injection 09:03:53 CDT CPT-G0439 [facility] Annual Wellness Exam 16:47:44 CDT CPT-J1071 Depo Testosterone 200mg 09:06:28 CDT CPT-64768 Abx/Therapy Injection 09:06:28 CDT CPT-J1071 Depo Testosterone 200mg 08:30:01 CDT CPT-06121 Abx/Therapy Injection 08:30:01 CDT CPT-J1071 Depo Testosterone 200mg 08:24:00 CDT CPT-95980 Abx/Therapy Injection 08:24:00 CDT CPT-27515 Venipuncture Draw Fee 14:39:06 CDT CPT-05035 Ribs unilateral 2V - XRAY USE ONLY 12:10:11 CDT CPT-57980 First Vx - Ix admin for Medicare patients 16:32:53 CDT CPT-91603 Boostrix Intramuscular Suspension 5-2.5-18.5 16:32:53 CDT CPT-80404 TB Skin Test 11:42:28 CDT CPT-52556 Tdap 7yrs or > 11:42:28 CDT CPT-J0696 Rocephin 1000 mg (Ceftriaxone) 17:43:43 OUTDOOR ADVENTURE INSTRUCTOR CPT-J1040 Depo Medrol 80 mg (Methyl Prednisolone Acetate) 17:43: 43 OUTDOOR ADVENTURE INSTRUCTOR CPT-J1100 Decadron 8mg (Dexamethasone) 17:43:42 OUTDOOR ADVENTURE INSTRUCTOR CPT-99555 Abx/Therapy Injection 17:43:42 OUTDOOR ADVENTURE INSTRUCTOR CPT-60906 Abx/Therapy Injection 17:43:42 OUTDOOR ADVENTURE INSTRUCTOR CPT-J1040 Depo Medrol 80 mg (Methyl Prednisolone Acetate) 09:43: 34 OUTDOOR ADVENTURE INSTRUCTOR CPT-J1100 Decadron 8mg (Dexamethasone) 09:43:34 OUTDOOR ADVENTURE INSTRUCTOR CPT-J0696 Rocephin 1gm Inj Solr 09:43:34 OUTDOOR ADVENTURE INSTRUCTOR CPT-24575 Wound Culture - LAB USE ONLY 14:00:21 CDT CPT-I/D I/D Abscess 09:16:37 CDT CPT-82089 Venipuncture Draw Fee 15:20:23 CDT CPT-69350 Microalbumin - LAB USE ONLY 16:02:19 CDT CPT-88390 CBC - LAB USE ONLY 16:02:19 CDT CPT-09613 Venipuncture Draw Fee 16:02:19 CDT CPT-G0438 Initial Annual Wellness Exam 08:10:28 CDT CPT-44165 Venipuncture Draw Fee 13:07:17 CDT CPT-G0008 Administration of Influenza Virus Vaccine 16:09:59 CDT CPT-95044 Fluzone Quadrivalent Intramuscular Suspension 0.5 ML 16: 09:59 CDT CPT-36927 Spec Collection and Handling Fee 15:05:50 CDT
--- OUTSIDE RECORDS SUMMARY | 2018-04-18 12:19 | XMS REPORT | Clinical Summary ---
Author Author Admin, [place] Organization [employer] Address Unknown Phone Unavailable Allergies, Adverse [...] positive airway pressure rx V46.2 Active Erin Garsai APRN Other dependence on machines, 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 [...] 1 tab by mouth twice daily TRIMETHOPRIM-SULFAMETHOXAZOLE [id number] No Longer Active Robbie Busby MD Active SPIRONOLACTONE 25 MG TAB 4 tablets by mouth daily SPIRONOLACTONE 33860318842 Active Robbie Busby MD Active HYDRALAZINE HCL 50 MG ORAL TABS TWO BY MOUTH THREE TIMES DAILY HYDRALAZINE HCL 05191925514 No Longer Active Jillina Frazell ADVERTISER Active HYDROCODONE-ACETAMINOPHEN 5-325 MG TABS 1 tab by mouth BID prn back pain 2013 HYDROCODONE-ACETAMINOPHEN 75545273389 No Longer Active Jillina Frazell ADVERTISER Active HYDROCHLOROTHIAZIDE TABS Take one by mouth daily HYDROCHLOROTHIAZIDE TABS 41092284812 No Longer Active Jillina Frazell ADVERTISER Active LAMISIL 125 MG ORAL PACK 1 TAB PO DAILY TERBINAFINE HCL 10341084909 No Longer Active Jillina Frazell ADVERTISER Active TRILEPTAL 150 MG ORAL TABS 1 TAB PO Q HS OXCARBAZEPINE 26215760294 No Longer Active Jillina Frazell ADVERTISER Active BETADINE 10 % EXT SOLN wash with solution to treat follicultis POVIDONE-IODINE 75455669325 No Longer Active Jillina Frazell ADVERTISER Active NYSTATIN 935896 UNIT/ML M/T SUSP 5mL po QID x 10 days NYSTATIN 73218655088 No Longer Active Erin Garsia APRN Active PREDNISONE 20 MG TAB 1 tablet twice daily for 2 days, then 1 tablet once daily for 2 days PREDNISONE 48451040334 No Longer Active Robbie Busby MD Active CEFDINIR 300 MG ORAL CAPS Take 1 cap po bid x 10 days CEFDINIR 39508780183 No Longer Active Robbie Busby MD Active AMLODIPINE BESYLATE 10 MG TABS 1 tablet by mouth daily AMLODIPINE BESYLATE 37471142633 Active Robbie Busby MD Active CARVEDILOL 25 MG TABS 1 & 1/2 TAB po BID CARVEDILOL 53809704715 Active Erin Garsia APRN Active VITAMIN D3 60001 UNIT CAPS 2 CAPS PO WEEKLY CHOLECALCIFEROL 82476950515 Active Erin Garsia APRN Active NEXIUM 40 MG CPDR 1 cap by mouth daily ESOMEPRAZOLE MAGNESIUM 20493140274 Active Gali Negro Active PROTONIX 40 MG SOLR 1 po qday for acid reflux PANTOPRAZOLE SODIUM 41727575298 No Longer Active Gali Negro Active KEFLEX 500 MG CAP 1 po TID x 10 days CEPHALEXIN 43080513752 No Longer Active Robbie Busby MD Active FIORICET 50-300-40 MG ORAL CAPS take 1 tab po qday prn migraines. [id number] 73236166338 Active Robbie Busby MD Active TOPIRAMATE 50 MG ORAL TABS take 1 tab po BID for migraines. TOPIRAMATE 35254531476 Active Robbie Busby MD Active MECLIZINE HCL 25 MG TAB one 4 times a day as needed for dizziness MECLIZINE HCL 49289756330 Active Robbie Busby MD Active TEMAZEPAM 15 MG ORAL CAPS 1 TAB PO Q HS TEMAZEPAM 72459094439 Active Robbie Busby MD Active ALPRAZOLAM 2 MG ORAL TABS 1 TAB PO BID ALPRAZOLAM 45447576811 Active Robbie Busby MD Active FENOFIBRATE 145 MG TABS Take one by mouth daily FENOFIBRATE 09882874943 No Longer Active Robbie Busby MD Active SPIRONOLACTONE 50 MG TABS 1 tablet by mouth twice a day SPIRONOLACTONE 75240721448 No Longer Active Robbie Busby MD Active HYDRALAZINE HCL 25 MG TABS 1 tablet by mouth tid for hypertension HYDRALAZINE HCL 77982351313 No Longer Active Robbie Busby MD Active VIIBRYD 40 MG TABS take 1 tab po qday for depression. VILAZODONE HCL 04088021228 No Longer Active Robbie Busby MD Active TERBINAFINE HCL 250 MG TABS 1 tab po qday for foot infection 2014 TERBINAFINE HCL 98788035011 No Longer Active Robbie Busby MD Active GABAPENTIN 300 MG CAPS 1 po q hs for nerve pain GABAPENTIN 28445223507 Active Robbie Busby MD Active FLONASE 50 MCG/ACT SUSP 1 spray each nostril twice daily for allergies and runny nose FLUTICASONE PROPIONATE 37203513848 Active Robbie Busby MD Active CHERATUSSIN AC 100-10 MG/5ML ORAL SOLN 7.5 mL PO q 4-6 hrs PRN cough GUAIFENESIN-CODEINE 66536225379 No Longer Active Robbie Busby MD Active AZITHROMYCIN 250 MG ORAL TABS 2 tablets PO today---then, 1 tablet PO daily x 4 more days (and 1 optional refill) AZITHROMYCIN 02914728549 No Longer Active Robbie Busby MD Active CLONIDINE HCL 0.2 MG ORAL TABS 1 TAB BY MOUTH EVERY 8 HOURS CLONIDINE HCL 90085091828 Active Erin Garsia APRN Active NORVASC 10 MG TAB 1 tablet by mouth daily AMLODIPINE BESYLATE 69607567365 No Longer Active Alex ALVAREZ Active IMDUR 60 MG TAB CR take 1 tab po qday for blood pressure ISOSORBIDE MONONITRATE Active Robbie Busby MD Active ISOSORBIDE DINITRATE 30 MG TABS Take one by mouth daily ISOSORBIDE DINITRATE 42455539141 No Longer Active Robbie Busby MD Active VIIBRYD 40 MG TABS 1 TA B PO DAILY VILAZODONE HCL 54686339248 Active Robbie Busby MD Active LORATADINE 10 MG TABS 1 tablet by mouth daily for congestion and allergies. LORATADINE 48985222285 Active Robbie Busby MD Active ZITHROMAX 250 MG TAB 2 po today, then 1 po q days 2-5 AZITHROMYCIN 93757253676 No Longer Active Robbie Busby MD Active [id number] 0.3 MG/24HR PTWK apply 2 patches q week for HTN CLONIDINE HCL 43468458364 Active Robbie Busby MD Active NITROSTAT 0.4 MG SUBL PRN NITROGLYCERIN 64342425208 Active Robbie Busby MD Active DOXAZOSIN MESYLATE 4 MG TABS Take one by mouth daily DOXAZOSIN MESYLATE 22725104002 Active Robbie Busby MD Active TOPROL XL 200 MG [id number] Take one by mouth daily METOPROLOL SUCCINATE 65242792576 Active Robbie Busby MD Active VENLAFAXINE HCL ER 150 MG [id number] Take one by mouth daily VENLAFAXINE HCL 36372094680 Active Robbie Busby MD Active LIPITOR 40 MG TABS Take one by mouth daily ATORVASTATIN CALCIUM 89233446351 Active Robbie Busby MD Active ISOSORBIDE DINITRATE 30 MG TABS Take one by mouth daily ISOSORBIDE DINITRATE 30 MG TABS 096268 ISOSORBIDE DINITRATE Inactive NORVASC 10 MG TAB 1 tablet by mouth daily NORVASC 10 MG TAB 329831 AMLODIPINE BESYLATE Inactive AZITHROMYCIN 250 MG ORAL TABS 2 tablets PO today---then, 1 tablet PO daily x 4 more days (and 1 optional refill) AZITHROMYCIN 250 MG ORAL TABS 7731194 AZITHROMYCIN Inactive CHERATUSSIN AC 100-10 MG/5ML ORAL SOLN 7.5 mL PO q 4-6 hrs PRN cough CHERATUSSIN AC 100-10 MG/5ML ORAL SOLN 349364 GUAIFENESIN- CODEINE Inactive VIIBRYD 40 MG TABS take 1 tab po qday for depression. VIIBRYD 40 MG TABS VILAZODONE HCL Inactive HYDRALAZINE HCL 25 MG TABS 1 tablet by mouth tid for hypertension HYDRALAZINE HCL 25 MG TABS 491126 HYDRALAZINE HCL Inactive SPIRONOLACTONE 50 MG TABS 1 tablet by mouth twice a day SPIRONOLACTONE 50 MG TABS 683931 SPIRONOLACTONE Inactive FENOFIBRATE 145 MG TABS Take one by mouth daily FENOFIBRATE 145 MG TABS 121604 FENOFIBRATE Inactive PROTONIX 40 MG SOLR 1 po qday for acid reflux PROTONIX 40 MG SOLR 487685 PANTOPRAZOLE SODIUM Inactive CEFDINIR 300 MG ORAL CAPS Take 1 cap po bid x 10 days CEFDINIR 300 MG ORAL CAPS 851267 CEFDINIR Inactive PREDNISONE 20 MG TAB 1 tablet twice daily for 2 days, then 1 tablet once daily for 2 days PREDNISONE 20 MG TAB 780665 PREDNISONE Inactive NYSTATIN 158425 UNIT/ML M/T SUSP 5mL po QID x 10 days NYSTATIN 318036 UNIT/ML M/T SUSP 806562 NYSTATIN Inactive BETADINE 10 % EXT SOLN wash with solution to treat follicultis BETADINE 10 % EXT SOLN 9734768 POVIDONE-IODINE Inactive TRILEPTAL 150 MG ORAL TABS 1 TAB PO Q HS TRILEPTAL 150 MG ORAL TABS 013629 OXCARBAZEPINE Inactive LAMISIL 125 MG ORAL PACK 1 TAB PO DAILY LAMISIL 125 MG ORAL PACK TERBINAFINE HCL Inactive HYDROCHLOROTHIAZIDE TABS Take one by mouth daily HYDROCHLOROTHIAZIDE TABS HYDROCHLOROTHIAZIDE TABS Inactive HYDROCODONE-ACETAMINOPHEN 5-325 MG TABS 1 tab by mouth BID prn back pain 2013 HYDROCODONE-ACETAMINOPHEN 5-325 MG TABS 142653 HYDROCODONE -ACETAMINOPHEN Inactive HYDRALAZINE HCL 50 MG ORAL TABS TWO BY MOUTH THREE TIMES DAILY HYDRALAZINE HCL 50 MG ORAL TABS 497824 HYDRALAZINE HCL Inactive ZITHROMAX 250 MG TAB 2 po today, then 1 po q days 2-5 ZITHROMAX 250 MG TAB 2763214 AZITHROMYCIN Inactive TERBINAFINE HCL 250 MG TABS 1 tab po qday for foot infection 2014 TERBINAFINE HCL 250 MG TABS 283871 TERBINAFINE HCL Inactive KEFLEX 500 MG CAP 1 po TID x 10 days KEFLEX 500 MG CAP 666308 CEPHALEXIN Inactive BACTRIM DS 800-160 MG TAB 1 tab by mouth twice daily BACTRIM DS 800-160 MG TAB 650870 TRIMETHOPRIM-SULFAMETHOXAZOLE Inactive Advance Directives Directive Description Start [...] Acid - Chemistry sodium, serum 139 mmol/L 231-766 4653/04/22 carbon dioxide, venous blood 29.4 mmol/L 21.0-32.0 [...] to Follow Negative Lab Report: VITAMIN D, 25-HYDROXY/81008 - Chemistry vitamin D 25-hydroxy, serum 23 ng/mL 30-100 Encounters Code Encounter Date Provider Facility [facility]-[id number] Level 3 Est. Patient 09:16:37 CDT Robbie Busby MD [facility]-72319 Level 3 Est. Patient 19:38:43 CDT Robbie Busby MD [facility]-62552 Level 3 Est. Patient 11:53:38 CDT Robbie Busby MD [facility]-23860 Level 4 Est. Patient 12:52:22 CDT Rober Rodríguez APRN [facility]-85840 Level 4 Est. Patient 22:55:17 CDT Robbie Busby MD [facility]-89134 Level 3 Est. Patient 12:38:24 CDT Desmond Diaz DO [facility]-66713 Level 4 Est. Patient 11:25:03 CONSULTING BUSINESS DEVELOPER Robbie Busby MD [facility] CPT-97900 Level 4 Est. Patient 14:50:10 CDT Robbie Busby MD [facility] CPT-98508 Level 4 Est. Patient 23:30:43 CDT Robbie Busby MD [facility]-90877 Level 4 Est. Patient 10:30:43 CDT Robbie Busby MD [facility] CPT-89869 Level 3 Est. Patient 17:08:12 CDT Alex ALVAREZ [facility]-79503 Level 4 Est. Patient 17:51:38 CDT Robbie Busby MD [facility]-75264 Level 4 Est. Patient 14:00:21 CDT Robbie Busby MD [facility]-41643 Level 4 Est. Patient 12:46:48 CDT Robbie Busby MD [facility] CPT-85868 Level 4 Est. Patient 13:34:33 CDT Robbie Busby MD [facility] CPT-51852 Level 4 Est. Patient 16:58:28 CDT Robbie Busby MD [facility] CPT-28998 Level 3 Est. Patient 19:36:53 CDT Alex ALVAREZ [facility] CPT-54631 Level 3 Est. Patient 12:58:15 CDT Robbie Busby MD [facility] Procedures Code Procedure Name Date Entry Date Standard Description CPT-03114 Wound Culture - LAB USE ONLY 14:00:21 CDT CPT-I/D I/D Abscess 09:16:37 CDT CPT-38317 Venipuncture Draw Fee 15:20:23 CDT CPT-76244 Microalbumin - LAB USE ONLY 16:02:19 CDT CPT-31883 CBC - LAB USE ONLY 16:02:19 CDT CPT-73690 Venipuncture Draw Fee 16:02:19 CDT CPT-G0438 Initial Annual Wellness Exam 08:10:28 CDT CPT-55633 Venipuncture Draw Fee 13:07:17 CDT CPT-G0008 Administration of Influenza Virus Vaccine 16:09:59 CDT CPT-55328 Fluzone Quadrivalent Intramuscular Suspension 0.5 ML 16: 09:59 CDT CPT-28640 Spec Collection and Handling Fee 15:05:50 CDT
--- OUTSIDE RECORDS SUMMARY | 2018-04-18 12:20 | XMS REPORT | Clinical Summary ---
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 Rober Rodríguez COIN TELLER Other malignant secondary hypertension Tachycardia 785.0 Active [...] 2 weeks for low testosterone TESTOSTERONE CYPIONATE 09720632426 Active Zulema Blank LPN Active CYCLOBENZAPRINE HCL 10 MG ORAL TABS 1 po TID PRN muscle spasm/pain for 10 days CYCLOBENZAPRINE HCL 14260757023 Active JONATHAN Moncada Active GUAIFENESIN 600 MG [id number] 1 tab po q am GUAIFENESIN 32630623474 Active Jillina Anne GONZALEZN Active FLUTICASONE PROPIONATE 50 MCG/ACT SUSP 2 sprays per nostril bid for 1 week, then 1 spray bid FLUTICASONE PROPIONATE 85847180494 Active Jillina Anne GONZALEZN Active HYDRALAZINE HCL 25 MG ORAL TABS Take 1 tab BID. HYDRALAZINE HCL 31361034663 Active Jillina Anne GONZALEZN Active VITAMIN D3 95154 UNIT ORAL TABS 2 po weekly CHOLECALCIFEROL 43560006036 Active Robbie Busby MD Active OXYCODONE HCL ER 10 MG ORAL T12A 1 tab po 3 times qd. OXYCODONE HCL 66640390995 Active Robbie Busby MD Active NITROSTAT 0.4 MG SUBL PRN NITROGLYCERIN 33762331239 No Longer Active Robbie Busby MD Active LORATADINE 10 MG TABS 1 tablet by mouth daily for congestion and allergies. LORATADINE 80853450243 No Longer Active Robbie Busby MD Active FLONASE 50 MCG/ACT SUSP 1 spray each nostril twice daily for allergies and runny nose FLUTICASONE PROPIONATE 25565439958 No Longer Active Robbie Busby MD Active FIORICET 50-300-40 MG ORAL CAPS take 1 tab po qday prn migraines. [id number]-ZWDH-SPSPEAYS 76707991039 No Longer Active Robbie Busby MD Active VITAMIN D3 97330 UNIT CAPS 2 CAPS PO WEEKLY CHOLECALCIFEROL 38627356576 No Longer Active Robbie Busby MD Active CYCLOBENZAPRINE HCL 10 MG TABS 1 tablet by mouth three times daily as needed for muscle spasm/pain for 10 days CYCLOBENZAPRINE HCL 15827516197 No Longer Active Robbie Busby MD Active PREDNISONE 20 MG TAB take 3 tabs daily for 3 days, 2 tabs daily for 3 days, 1 tab daily for 3 days, 1/2 tab daily for 4 days PREDNISONE 00343796100 No Longer Active Erin Garsia APRN Active CLONIDINE HCL 0.2 MG ORAL TABS 1 TAB BY MOUTH EVERY 8 HOURS 12/29 CLONIDINE HCL 10263902116 No Longer Active Erin Garsia APRN Active MECLIZINE HCL 25 MG TAB one 4 times a day as needed for dizziness MECLIZINE HCL 53089747594 No Longer Active Erin Garsia APRN Active SPIRONOLACTONE 25 MG TAB 4 tablets by mouth daily SPIRONOLACTONE 29629283408 No Longer Active Erin Garsia APRN Active LEVAQUIN 500 MG TAB 1 tablet by mouth daily for 7 days LEVOFLOXACIN 62139497059 No Longer Active Erin Garsia APRN Active BACTRIM DS 800-160 MG TAB 1 tab by mouth twice daily TRIMETHOPRIM-SULFAMETHOXAZOLE 19021252889 No Longer Active Robbie Busby MD Active HYDRALAZINE HCL 50 MG ORAL TABS TWO BY MOUTH THREE TIMES DAILY HYDRALAZINE HCL 24061795419 No Longer Active Andrellina Anne GONZALEZN Active HYDROCODONE-ACETAMINOPHEN 5-325 MG TABS 1 tab by mouth BID prn back pain 2013 HYDROCODONE-ACETAMINOPHEN 80833146325 No Longer Active Jillina Frazell COIN TELLER Active HYDROCHLOROTHIAZIDE TABS Take one by mouth daily HYDROCHLOROTHIAZIDE TABS 08143684236 No Longer Active Jillina Frazell COIN TELLER Active LAMISIL 125 MG ORAL PACK 1 TAB PO DAILY TERBINAFINE HCL 78510849275 No Longer Active Jillina Frazell COIN TELLER Active TRILEPTAL 150 MG ORAL TABS 1 TAB PO Q HS OXCARBAZEPINE 76508682380 No Longer Active Jillina Frazell COIN TELLER Active BETADINE 10 % EXT SOLN wash with solution to treat follicultis POVIDONE-IODINE 57289236969 No Longer Active Jillina Frazell COIN TELLER Active NYSTATIN 989330 UNIT/ML M/T SUSP 5mL po QID x 10 days NYSTATIN 29225754931 No Longer Active Erin Garsia APRN Active PREDNISONE 20 MG TAB 1 tablet twice daily for 2 days, then 1 tablet once daily for 2 days PREDNISONE 00612665524 No Longer Active Robbie Busby MD Active CEFDINIR 300 MG ORAL CAPS Take 1 cap po bid x 10 days CEFDINIR 83975035829 No Longer Active Robbie Busby MD Active AMLODIPINE BESYLATE 10 MG TABS 1 tablet by mouth daily AMLODIPINE BESYLATE 54446042884 Active Robbie Busby MD Active CARVEDILOL 25 MG TABS 1 & 1/2 TAB po BID CARVEDILOL 29861658938 Active Robbie Busby MD Active NEXIUM 40 MG CPDR 1 cap by mouth daily ESOMEPRAZOLE MAGNESIUM 12238626641 Active Robbie Busby MD Active PROTONIX 40 MG SOLR 1 po qday for acid reflux PANTOPRAZOLE SODIUM 07944700399 No Longer Active Gali Raida Active KEFLEX 500 MG CAP 1 po TID x 10 days CEPHALEXIN 32897470402 No Longer Active Robbie Busby MD Active TOPIRAMATE 50 MG ORAL TABS take 1 tab po BID for migraines. TOPIRAMATE 23175773586 Active Robbie Busby MD Active TEMAZEPAM 15 MG ORAL CAPS 1 TAB PO Q HS TEMAZEPAM 93047478841 Active Robbie Busby MD Active ALPRAZOLAM 2 MG ORAL TABS 1 TAB PO BID ALPRAZOLAM 36264202722 Active Robbie Busby MD Active FENOFIBRATE 145 MG TABS Take one by mouth daily FENOFIBRATE 09621524936 No Longer Active Robbie Busby MD Active SPIRONOLACTONE 50 MG TABS 1 tablet by mouth twice a day SPIRONOLACTONE 85495671140 No Longer Active Robbie Busby MD Active HYDRALAZINE HCL 25 MG TABS 1 tablet by mouth tid for hypertension HYDRALAZINE HCL 82487596041 No Longer Active Robbie Busby MD Active VIIBRYD 40 MG TABS take 1 tab po qday for depression. VILAZODONE HCL 66970061628 No Longer Active Robbie Busby MD Active TERBINAFINE HCL 250 MG TABS 1 tab po qday for foot infection 2014 TERBINAFINE HCL 77047581444 No Longer Active Robbie Busby MD Active GABAPENTIN 300 MG CAPS 1 po q hs for nerve pain GABAPENTIN 77231187382 Active Robbie Busby MD Active CHERATUSSIN AC 100-10 MG/5ML ORAL SOLN 7.5 mL PO q 4-6 hrs PRN cough GUAIFENESIN-CODEINE 83310121865 No Longer Active Robbie Busby MD Active AZITHROMYCIN 250 MG ORAL TABS 2 tablets PO today---then, 1 tablet PO daily x 4 more days (and 1 optional refill) AZITHROMYCIN 37070870196 No Longer Active Robbie Busby MD Active NORVASC 10 MG TAB 1 tablet by mouth daily AMLODIPINE BESYLATE 52548102260 No Longer Active Alex ALVAREZ Active IMDUR 60 MG TAB CR take 1 tab po qday for blood pressure ISOSORBIDE MONONITRATE Active Robbie Busby MD Active ISOSORBIDE DINITRATE 30 MG TABS Take one by mouth daily ISOSORBIDE DINITRATE 88116192051 No Longer Active Robbie Busby MD Active VIIBRYD 40 MG TABS 1 TA B PO DAILY VILAZODONE HCL 98025882213 Active Robbie Busby MD Active ZITHROMAX 250 MG TAB 2 po today, then 1 po q days 2-5 AZITHROMYCIN 38724307955 No Longer Active Robbie Busby MD Active [id number]-7 0.3 MG/24HR PTWK apply 2 patches q week for HTN CLONIDINE HCL 56523306979 Active Robbie Busby MD Active DOXAZOSIN MESYLATE 4 MG TABS Take one by mouth daily DOXAZOSIN MESYLATE 38914700958 Active Robbie Busby MD Active TOPROL XL 200 MG [id number]-[id number] Take one by mouth daily METOPROLOL SUCCINATE 62605809094 Active Robbie Busby MD Active VENLAFAXINE HCL ER 150 MG [id number] Take one by mouth daily VENLAFAXINE HCL 27188097165 Active Robbie Busby MD Active LIPITOR 40 MG TABS Take one by mouth daily ATORVASTATIN CALCIUM 69896051904 Active Robbie Busby MD Active ISOSORBIDE DINITRATE 30 MG TABS Take one by mouth daily ISOSORBIDE DINITRATE 30 MG TABS 489106 ISOSORBIDE DINITRATE Inactive NORVASC 10 MG TAB 1 tablet by mouth daily NORVASC 10 MG TAB 710729 AMLODIPINE BESYLATE Inactive AZITHROMYCIN 250 MG ORAL TABS 2 tablets PO today---then, 1 tablet PO daily x 4 more days (and 1 optional refill) AZITHROMYCIN 250 MG ORAL TABS 0151851 AZITHROMYCIN Inactive CHERATUSSIN AC 100-10 MG/5ML ORAL SOLN 7.5 mL PO q 4-6 hrs PRN cough CHERATUSSIN AC 100-10 MG/5ML ORAL SOLN 639403 GUAIFENESIN- CODEINE Inactive VIIBRYD 40 MG TABS take 1 tab po qday for depression. VIIBRYD 40 MG TABS VILAZODONE HCL Inactive HYDRALAZINE HCL 25 MG TABS 1 tablet by mouth tid for hypertension HYDRALAZINE HCL 25 MG TABS 647768 HYDRALAZINE HCL Inactive SPIRONOLACTONE 50 MG TABS 1 tablet by mouth twice a day SPIRONOLACTONE 50 MG TABS 697636 SPIRONOLACTONE Inactive FENOFIBRATE 145 MG TABS Take one by mouth daily FENOFIBRATE 145 MG TABS 125968 FENOFIBRATE Inactive PROTONIX 40 MG SOLR 1 po qday for acid reflux PROTONIX 40 MG SOLR 004417 PANTOPRAZOLE SODIUM Inactive CEFDINIR 300 MG ORAL CAPS Take 1 cap po bid x 10 days CEFDINIR 300 MG ORAL CAPS 342128 CEFDINIR Inactive PREDNISONE 20 MG TAB 1 tablet twice daily for 2 days, then 1 tablet once daily for 2 days PREDNISONE 20 MG TAB 416410 PREDNISONE Inactive NYSTATIN 771574 UNIT/ML M/T SUSP 5mL po QID x 10 days NYSTATIN 746254 UNIT/ML M/T SUSP 737022 NYSTATIN Inactive BETADINE 10 % EXT SOLN wash with solution to treat follicultis BETADINE 10 % EXT SOLN 7808875 POVIDONE-IODINE Inactive TRILEPTAL 150 MG ORAL TABS 1 TAB PO Q HS TRILEPTAL 150 MG ORAL TABS 093159 OXCARBAZEPINE Inactive LAMISIL 125 MG ORAL PACK 1 TAB PO DAILY LAMISIL 125 MG ORAL PACK TERBINAFINE HCL Inactive HYDROCHLOROTHIAZIDE TABS Take one by mouth daily HYDROCHLOROTHIAZIDE TABS HYDROCHLOROTHIAZIDE TABS Inactive HYDROCODONE-ACETAMINOPHEN 5-325 MG TABS 1 tab by mouth BID prn back pain 2013 HYDROCODONE-ACETAMINOPHEN 5-325 MG TABS 906736 HYDROCODONE -ACETAMINOPHEN Inactive HYDRALAZINE HCL 50 MG ORAL TABS TWO BY MOUTH THREE TIMES DAILY HYDRALAZINE HCL 50 MG ORAL TABS 609017 HYDRALAZINE HCL Inactive LEVAQUIN 500 MG TAB 1 tablet by mouth daily for 7 days LEVAQUIN 500 MG TAB 592222 LEVOFLOXACIN Inactive SPIRONOLACTONE 25 MG TAB 4 tablets by mouth daily SPIRONOLACTONE 25 MG TAB 997696 SPIRONOLACTONE Inactive MECLIZINE HCL 25 MG TAB one 4 times a day as needed for dizziness MECLIZINE HCL 25 MG TAB 126676 MECLIZINE HCL Inactive CLONIDINE HCL 0.2 MG ORAL TABS 1 TAB BY MOUTH EVERY 8 HOURS 12/29 CLONIDINE HCL 0.2 MG ORAL TABS 835426 CLONIDINE HCL Inactive CYCLOBENZAPRINE HCL 10 MG TABS 1 tablet by mouth three times daily as needed for muscle spasm/pain for 10 days CYCLOBENZAPRINE HCL 10 MG TABS 514076 CYCLOBENZAPRINE HCL Inactive VITAMIN D3 59784 UNIT CAPS 2 CAPS PO WEEKLY VITAMIN D3 23748 UNIT CAPS CHOLECALCIFEROL Inactive FIORICET 50-300-40 MG ORAL CAPS take 1 tab po qday prn migraines. FIORICET 50-300-40 MG ORAL CAPS 892545 KONUCILYPX-AUTF-FOMSKRXI Inactive FLONASE 50 MCG/ACT SUSP 1 spray each nostril twice daily for allergies and runny nose FLONASE 50 MCG/ACT SUSP 0795655 FLUTICASONE PROPIONATE Inactive LORATADINE 10 MG TABS 1 tablet by mouth daily for congestion and allergies. LORATADINE 10 MG TABS 445207 LORATADINE Inactive NITROSTAT 0.4 MG SUBL PRN NITROSTAT 0.4 MG SUBL 677169 NITROGLYCERIN Inactive ZITHROMAX 250 MG TAB 2 po today, then 1 po q days 2-5 ZITHROMAX 250 MG TAB 4660805 AZITHROMYCIN Inactive TERBINAFINE HCL 250 MG TABS 1 tab po qday for foot infection 2014 TERBINAFINE HCL 250 MG TABS 749804 TERBINAFINE HCL Inactive KEFLEX 500 MG CAP 1 po TID x 10 days KEFLEX 500 MG CAP 365050 CEPHALEXIN Inactive BACTRIM DS 800-160 MG TAB 1 tab by mouth twice daily BACTRIM DS 800-160 MG TAB 146018 TRIMETHOPRIM-SULFAMETHOXAZOLE Inactive PREDNISONE 20 MG TAB take 3 tabs daily for 3 days, 2 tabs daily for 3 days, 1 tab daily for 3 days, 1/2 tab daily for 4 days PREDNISONE 20 MG TAB 784760 PREDNISONE Inactive Advance Directives Directive Description Start [...] AUTO - Chemistry sodium, serum 142 mmol/L 277-430 8716/07/17 carbon dioxide, venous blood 28.2 mmol/L 21.0-32.0 [...] % 11.0-15.0 platelet count 185 THOUSAND/UL 10*3/mm3 609-555 8182/04/14 mean platelet volume 10.9 fL 7.5-12.5 Lab Report: LIPID PANEL, TSH/899, T4, FREE/866 - Chemistry cholesterol, serum 220 mg/dL 505-233 5391/04/14 HDL cholesterol, serum 30 mg/dL > OR=40 [...] 1.80 ng/mL 0.00-4.00 Lab Report: VITAMIN D, 25-HYDROXY/78188 - Chemistry vitamin D 25-hydroxy, serum 25 ng/mL 30-100 Office Visit: Confusion, dizziness after fall - Basic LDL target level 130 mg/dL Office Visit: Confusion, dizziness after fall - Chemistry HDL cholesterol, serum, target level 40 mg/dL triglyceride, target level 150 mg/dL cholesterol, target level 200 mg/dL Encounters Code Encounter Date Provider Facility CPT-06225 Level 4 Est. Patient 15:18:19 CDT Robbie Busby MD [facility] CPT-89288 Level 3 Est. Patient 09:00:37 CDT Rober Rodríguez [facility] CPT-10587 Level 3 Est. Patient 16:07:10 CDT Robbie Busby MD [facility] CPT-60743 Level 4 Est. Patient 11:56:16 CDT Erin Garsia [facility] CPT-81000 Level 3 Est. Patient 17:48:02 CDT Robbie Busby MD [facility] CPT-13787 Level 4 Est. Patient 12:00:49 SCRIP CLERK Rober Rodríguez [facility] CPT-21163 Level 3 Est. Patient 09:16:37 CDT Robbie Busby MD [facility] CPT-03259 Level 3 Est. Patient 19:38:43 CDT Robbie Busby MD [facility] CPT-63581 Level 3 Est. Patient 11:53:38 CDT Robbie Busby MD [facility] CPT-17545 Level 4 Est. Patient 12:52:22 CDT Rober Rodríguez [facility] CPT-92716 Level 4 Est. Patient 22:55:17 CDT Robbie Busby MD [facility] CPT-98673 Level 3 Est. Patient 12:38:24 CDT Desmond Diaz DO [facility] CPT-19724 Level 4 Est. Patient 11:25:03 SCRIP CLERK Robbie Busby MD [facility] CPT-76150 Level 4 Est. Patient 14:50:10 CDT Robbie Busby MD [facility] CPT-17971 Level 4 Est. Patient 23:30:43 CDT Robbie Busby MD [facility] CPT-22498 Level 4 Est. Patient 10:30:43 CDT Robbie Busby MD [facility] CPT-73598 Level 3 Est. Patient 17:08:12 CDT Alex ALVAREZ [facility] CPT-61259 Level 4 Est. Patient 17:51:38 CDT Robbie Busby MD [facility] CPT-46696 Level 4 Est. Patient 14:00:21 CDT Robbie Busby MD [facility] CPT-23034 Level 4 Est. Patient 12:46:48 CDT Robbie Busby MD [facility] CPT-83812 Level 4 Est. Patient 13:34:33 CDT Robbie Busby MD [facility] CPT-21976 Level 4 Est. Patient 16:58:28 CDT Robbie Busby MD [facility] CPT-17352 Level 3 Est. Patient 19:36:53 CDT Alex ALVAREZ [facility] CPT-02584 Level 3 Est. Patient 12:58:15 CDT Robbie Busby MD [facility] Procedures Code Procedure Name Date Entry Date Standard Description CPT-J1071 Depo Testosterone 200mg 09:03:53 CDT CPT-23949 Abx/Therapy Injection 09:03:53 CDT CPT-G0439 [facility] Annual Wellness Exam 16:47:44 CDT CPT-J1071 Depo Testosterone 200mg 09:06:28 CDT CPT-10803 Abx/Therapy Injection 09:06:28 CDT CPT-J1071 Depo Testosterone 200mg 08:30:01 CDT CPT-19883 Abx/Therapy Injection 08:30:01 CDT CPT-J1071 Depo Testosterone 200mg 08:24:00 CDT CPT-80105 Abx/Therapy Injection 08:24:00 CDT CPT-95276 Venipuncture Draw Fee 14:39:06 CDT CPT-75253 Ribs unilateral 2V - XRAY USE ONLY 12:10:11 CDT CPT-17928 First Vx - Ix admin for Medicare patients 16:32:53 CDT CPT-76199 Boostrix Intramuscular Suspension 5-2.5-18.5 16:32:53 CDT CPT-63351 TB Skin Test 11:42:28 CDT CPT-90687 Tdap 7yrs or > 11:42:28 CDT CPT-J0696 Rocephin 1000 mg (Ceftriaxone) 17:43:43 SCRIP CLERK CPT-J1040 Depo Medrol 80 mg (Methyl Prednisolone Acetate) 17:43: 43 SCRIP CLERK CPT-J1100 Decadron 8mg (Dexamethasone) 17:43:42 SCRIP CLERK CPT-25214 Abx/Therapy Injection 17:43:42 SCRIP CLERK CPT-07388 Abx/Therapy Injection 17:43:42 SCRIP CLERK CPT-J1040 Depo Medrol 80 mg (Methyl Prednisolone Acetate) 09:43: 34 SCRIP CLERK CPT-J1100 Decadron 8mg (Dexamethasone) 09:43:34 SCRIP CLERK CPT-J0696 Rocephin 1gm Inj Solr 09:43:34 SCRIP CLERK CPT-82283 Wound Culture - LAB USE ONLY 14:00:21 CDT CPT-I/D I/D Abscess 09:16:37 CDT CPT-27307 Venipuncture Draw Fee 15:20:23 CDT CPT-01433 Microalbumin - LAB USE ONLY 16:02:19 CDT CPT-57417 CBC - LAB USE ONLY 16:02:19 CDT CPT-09972 Venipuncture Draw Fee 16:02:19 CDT CPT-G0438 Initial Annual Wellness Exam 08:10:28 CDT CPT-88002 Venipuncture Draw Fee 13:07:17 CDT CPT-G0008 Administration of Influenza Virus Vaccine 16:09:59 CDT CPT-86662 Fluzone Quadrivalent Intramuscular Suspension 0.5 ML 16: 09:59 CDT CPT-15348 Spec Collection and Handling Fee 15:05:50 CDT
--- OUTSIDE RECORDS SUMMARY | 2018-04-18 12:20 | XMS REPORT | Clinical Summary ---
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 Rober Rodríguez ORDER BOOKER Other malignant secondary hypertension Tachycardia 785.0 Active Andrellld Rodríguez APRN Tachycardia, unspecified Insect bite, infected 919.5 Active Robbie Busby MD Insect bite, nonvenomous, of other, multiple, and unspecified sites, infected Abscess, skin 682.9 Active Robbie Busby MD Cellulitis and abscess of unspecified sites URI 465.9 Active Rboer Rodríguez APRN Acute upper respiratory infections of [...] muscle spasm/pain for 10 days CYCLOBENZAPRINE HCL 43069917991 Active Erin Garsia APRN Active PREDNISONE 20 MG TAB take 3 tabs daily for 3 days, 2 tabs daily for 3 days, 1 tab daily for 3 days, 1/2 tab daily for 4 days PREDNISONE 20454508583 Active Erin Garsia APRN Active CLONIDINE HCL 0.2 MG ORAL TABS 1 TAB BY MOUTH EVERY 8 HOURS 12/29 CLONIDINE HCL 35303993842 No Longer Active Erin Garsia APRN Active MECLIZINE HCL 25 MG TAB one 4 times a day as needed for dizziness MECLIZINE HCL 41000170569 No Longer Active Erin Garsia APRN Active SPIRONOLACTONE 25 MG TAB 4 tablets by mouth daily SPIRONOLACTONE 05746312303 No Longer Active Erin Garsia APRN Active LEVAQUIN 500 MG TAB 1 tablet by mouth daily for 7 days LEVOFLOXACIN 79946054072 No Longer Active Erin Garsia APRN Active BACTRIM DS 800-160 MG TAB 1 tab by mouth twice daily TRIMETHOPRIM-SULFAMETHOXAZOLE 23920575276 No Longer Active Robbie Busby MD Active HYDRALAZINE HCL 50 MG ORAL TABS TWO BY MOUTH THREE TIMES DAILY HYDRALAZINE HCL 20846016876 No Longer Active Jillina Frazell ORDER BOOKER Active HYDROCODONE-ACETAMINOPHEN 5-325 MG TABS 1 tab by mouth BID prn back pain 2013 HYDROCODONE-ACETAMINOPHEN 28748574304 No Longer Active Jillina Frazell ORDER BOOKER Active HYDROCHLOROTHIAZIDE TABS Take one by mouth daily HYDROCHLOROTHIAZIDE TABS 71515635512 No Longer Active Jillina Frazell ORDER BOOKER Active LAMISIL 125 MG ORAL PACK 1 TAB PO DAILY TERBINAFINE HCL 84820066500 No Longer Active Jillina Frazell ORDER BOOKER Active TRILEPTAL 150 MG ORAL TABS 1 TAB PO Q HS OXCARBAZEPINE 54875869104 No Longer Active Jillina Frazell ORDER BOOKER Active BETADINE 10 % EXT SOLN wash with solution to treat follicultis POVIDONE-IODINE 73283637010 No Longer Active Jillina Frakierstenl ORDER BOOKER Active NYSTATIN 204998 UNIT/ML M/T SUSP 5mL po QID x 10 days NYSTATIN 31927588339 No Longer Active Erin Garsia APRN Active PREDNISONE 20 MG TAB 1 tablet twice daily for 2 days, then 1 tablet once daily for 2 days PREDNISONE 93316218265 No Longer Active Robbie Busby MD Active CEFDINIR 300 MG ORAL CAPS Take 1 cap po bid x 10 days CEFDINIR 77818740531 No Longer Active Robbie Busby MD Active AMLODIPINE BESYLATE 10 MG TABS 1 tablet by mouth daily AMLODIPINE BESYLATE 89275526011 Active Robbie Busby MD Active CARVEDILOL 25 MG TABS 1 & 1/2 TAB po BID CARVEDILOL 46160491378 Active Erin Garsia APRN Active VITAMIN D3 17302 UNIT CAPS 2 CAPS PO WEEKLY CHOLECALCIFEROL 98079130200 Active Erin Garsia APRN Active NEXIUM 40 MG CPDR 1 cap by mouth daily ESOMEPRAZOLE MAGNESIUM 70348963277 Active Robbie Busby MD Active PROTONIX 40 MG SOLR 1 po qday for acid reflux PANTOPRAZOLE SODIUM 54106374095 No Longer Active Gali Negro Active KEFLEX 500 MG CAP 1 po TID x 10 days CEPHALEXIN 75436459864 No Longer Active Robbie Busby MD Active FIORICET 50-300-40 MG ORAL CAPS take 1 tab po qday prn migraines. [id number] 62134996186 Active Robbie Busby MD Active TOPIRAMATE 50 MG ORAL TABS take 1 tab po BID for migraines. TOPIRAMATE 20641593499 Active Robbie Busby MD Active TEMAZEPAM 15 MG ORAL CAPS 1 TAB PO Q HS TEMAZEPAM 84988546863 Active Robbie Busby MD Active ALPRAZOLAM 2 MG ORAL TABS 1 TAB PO BID ALPRAZOLAM 79936922164 Active Robbie Busby MD Active FENOFIBRATE 145 MG TABS Take one by mouth daily FENOFIBRATE 12496742883 No Longer Active Robbie Busby MD Active SPIRONOLACTONE 50 MG TABS 1 tablet by mouth twice a day SPIRONOLACTONE 78852015184 No Longer Active Robbie Busby MD Active HYDRALAZINE HCL 25 MG TABS 1 tablet by mouth tid for hypertension HYDRALAZINE HCL 79201236347 No Longer Active Robbie Busby MD Active VIIBRYD 40 MG TABS take 1 tab po qday for depression. VILAZODONE HCL 52534601124 No Longer Active Robbie Busby MD Active TERBINAFINE HCL 250 MG TABS 1 tab po qday for foot infection 2014 TERBINAFINE HCL 67087220197 No Longer Active Robbie Busby MD Active GABAPENTIN 300 MG CAPS 1 po q hs for nerve pain GABAPENTIN 14473838879 Active Robbie Busby MD Active FLONASE 50 MCG/ACT SUSP 1 spray each nostril twice daily for allergies and runny nose FLUTICASONE PROPIONATE 70986818731 Active Robbie Busby MD Active CHERATUSSIN AC 100-10 MG/5ML ORAL SOLN 7.5 mL PO q 4-6 hrs PRN cough GUAIFENESIN-CODEINE 41054876723 No Longer Active Robbie Busby MD Active AZITHROMYCIN 250 MG ORAL TABS 2 tablets PO today---then, 1 tablet PO daily x 4 more days (and 1 optional refill) AZITHROMYCIN 46858153254 No Longer Active Robbie Busby MD Active NORVASC 10 MG TAB 1 tablet by mouth daily AMLODIPINE BESYLATE 50116438832 No Longer Active Alex ALVAREZ Active IMDUR 60 MG TAB CR take 1 tab po qday for blood pressure ISOSORBIDE MONONITRATE Active Robbie Busby MD Active ISOSORBIDE DINITRATE 30 MG TABS Take one by mouth daily ISOSORBIDE DINITRATE 28383834421 No Longer Active Robbie Busby MD Active VIIBRYD 40 MG TABS 1 TA B PO DAILY VILAZODONE HCL 96658594141 Active Robbie Busby MD Active LORATADINE 10 MG TABS 1 tablet by mouth daily for congestion and allergies. LORATADINE 52773989811 Active Robbie Busby MD Active ZITHROMAX 250 MG TAB 2 po today, then 1 po q days 2-5 AZITHROMYCIN 14954524820 No Longer Active Robbie Busby MD Active [id number] 0.3 MG/24HR PTWK apply 2 patches q week for HTN CLONIDINE HCL 69361547097 Active Robbie Busby MD Active NITROSTAT 0.4 MG SUBL PRN NITROGLYCERIN 98577814961 Active Robbie Busby MD Active DOXAZOSIN MESYLATE 4 MG TABS Take one by mouth daily DOXAZOSIN MESYLATE 35891187333 Active Erin Garsia APRN Active TOPROL XL 200 MG [id number] Take one by mouth daily METOPROLOL SUCCINATE 22350775784 Active Robbie Busby MD Active VENLAFAXINE HCL ER 150 MG [id number] Take one by mouth daily VENLAFAXINE HCL 78491010106 Active Robbie Busby MD Active LIPITOR 40 MG TABS Take one by mouth daily ATORVASTATIN CALCIUM 25959857428 Active Robbie Busby MD Active ISOSORBIDE DINITRATE 30 MG TABS Take one by mouth daily ISOSORBIDE DINITRATE 30 MG TABS 984745 ISOSORBIDE DINITRATE Inactive NORVASC 10 MG TAB 1 tablet by mouth daily NORVASC 10 MG TAB 227498 AMLODIPINE BESYLATE Inactive AZITHROMYCIN 250 MG ORAL TABS 2 tablets PO today---then, 1 tablet PO daily x 4 more days (and 1 optional refill) AZITHROMYCIN 250 MG ORAL TABS 3401156 AZITHROMYCIN Inactive CHERATUSSIN AC 100-10 MG/5ML ORAL SOLN 7.5 mL PO q 4-6 hrs PRN cough CHERATUSSIN AC 100-10 MG/5ML ORAL SOLN 195577 GUAIFENESIN- CODEINE Inactive VIIBRYD 40 MG TABS take 1 tab po qday for depression. VIIBRYD 40 MG TABS VILAZODONE HCL Inactive HYDRALAZINE HCL 25 MG TABS 1 tablet by mouth tid for hypertension HYDRALAZINE HCL 25 MG TABS 492385 HYDRALAZINE HCL Inactive SPIRONOLACTONE 50 MG TABS 1 tablet by mouth twice a day SPIRONOLACTONE 50 MG TABS 220061 SPIRONOLACTONE Inactive FENOFIBRATE 145 MG TABS Take one by mouth daily FENOFIBRATE 145 MG TABS 521972 FENOFIBRATE Inactive PROTONIX 40 MG SOLR 1 po qday for acid reflux PROTONIX 40 MG SOLR 731586 PANTOPRAZOLE SODIUM Inactive CEFDINIR 300 MG ORAL CAPS Take 1 cap po bid x 10 days CEFDINIR 300 MG ORAL CAPS 976250 CEFDINIR Inactive PREDNISONE 20 MG TAB 1 tablet twice daily for 2 days, then 1 tablet once daily for 2 days PREDNISONE 20 MG TAB 562888 PREDNISONE Inactive NYSTATIN 022860 UNIT/ML M/T SUSP 5mL po QID x 10 days NYSTATIN 729556 UNIT/ML M/T SUSP 573463 NYSTATIN Inactive BETADINE 10 % EXT SOLN wash with solution to treat follicultis BETADINE 10 % EXT SOLN 4195018 POVIDONE-IODINE Inactive TRILEPTAL 150 MG ORAL TABS 1 TAB PO Q HS TRILEPTAL 150 MG ORAL TABS 894103 OXCARBAZEPINE Inactive LAMISIL 125 MG ORAL PACK 1 TAB PO DAILY LAMISIL 125 MG ORAL PACK TERBINAFINE HCL Inactive HYDROCHLOROTHIAZIDE TABS Take one by mouth daily HYDROCHLOROTHIAZIDE TABS HYDROCHLOROTHIAZIDE TABS Inactive HYDROCODONE-ACETAMINOPHEN 5-325 MG TABS 1 tab by mouth BID prn back pain 2013 HYDROCODONE-ACETAMINOPHEN 5-325 MG TABS 096546 HYDROCODONE -ACETAMINOPHEN Inactive HYDRALAZINE HCL 50 MG ORAL TABS TWO BY MOUTH THREE TIMES DAILY HYDRALAZINE HCL 50 MG ORAL TABS 826179 HYDRALAZINE HCL Inactive LEVAQUIN 500 MG TAB 1 tablet by mouth daily for 7 days LEVAQUIN 500 MG TAB 284159 LEVOFLOXACIN Inactive SPIRONOLACTONE 25 MG TAB 4 tablets by mouth daily SPIRONOLACTONE 25 MG TAB 554762 SPIRONOLACTONE Inactive MECLIZINE HCL 25 MG TAB one 4 times a day as needed for dizziness MECLIZINE HCL 25 MG TAB 632528 MECLIZINE HCL Inactive CLONIDINE HCL 0.2 MG ORAL TABS 1 TAB BY MOUTH EVERY 8 HOURS 12/29 CLONIDINE HCL 0.2 MG ORAL TABS 976201 CLONIDINE HCL Inactive ZITHROMAX 250 MG TAB 2 po today, then 1 po q days 2-5 ZITHROMAX 250 MG TAB 4177070 AZITHROMYCIN Inactive TERBINAFINE HCL 250 MG TABS 1 tab po qday for foot infection 2014 TERBINAFINE HCL 250 MG TABS 292292 TERBINAFINE HCL Inactive KEFLEX 500 MG CAP 1 po TID x 10 days KEFLEX 500 MG CAP 392974 CEPHALEXIN Inactive BACTRIM DS 800-160 MG TAB 1 tab by mouth twice daily BACTRIM DS 800-160 MG TAB 795634 TRIMETHOPRIM-SULFAMETHOXAZOLE Inactive Advance Directives Directive Description Start [...] Acid - Chemistry sodium, serum 139 mmol/L 859-768 2270/04/22 carbon dioxide, venous blood 29.4 mmol/L 21.0-32.0 [...] urine 80 0-19 Lab Report: VITAMIN D, 25-HYDROXY/40302 - Chemistry vitamin D 25-hydroxy, serum 23 ng/mL 30-100 Encounters Code Encounter Date Provider Facility CPT-26601 Level 4 Est. 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 Patient 09:16:37 CDT Robbie Busby MD [facility]-63418 Level 3 Est. Patient 19:38:43 CDT Robbie Busby MD [facility]-69211 Level 3 Est. Patient 11:53:38 CDT Robbie Busby MD [facility]-11415 Level 4 Est. Patient 12:52:22 CDT Rober Rodríguez [facility]-04497 Level 4 Est. Patient 22:55:17 CDT Robbie Busby MD [facility] CPT-18722 Level 3 Est. Patient 12:38:24 CDT Desmond Diaz DO [facility] CPT-15467 Level 4 Est. 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 Patient 14:50:10 CDT Robbie Busby MD [facility] CPT-34109 Level 4 Est. Patient 23:30:43 CDT Robbie Busby MD [facility] CPT-51041 Level 4 Est. Patient 10:30:43 CDT Robbie Busby MD [facility] CPT-93967 Level 3 Est. Patient 17:08:12 CDT Alex ALVAREZ [facility] CPT-04567 Level 4 Est. Patient 17:51:38 CDT Robbie Busby MD [facility] CPT-62767 Level 4 Est. Patient 14:00:21 CDT Robbie Busby MD [facility] CPT-12769 Level 4 Est. Patient 12:46:48 CDT Robbie Busby MD [facility] CPT-52382 Level 4 Est. Patient 13:34:33 CDT Robbie Busby MD [facility] CPT-92614 Level 4 Est. Patient 16:58:28 CDT Robbie Bubsy MD [facility] CPT-18028 Level 3 Est. Patient 19:36:53 CDT Alex ALVAREZ [facility] CPT-05912 Level 3 Est. Patient 12:58:15 CDT Robbie Busby MD [facility] Procedures Code Procedure Name Date Entry Date Standard Description CPT-J0696 Rocephin 1000 mg (Ceftriaxone) 17:43:43 BOW MAKING MACHINE OPERATOR CPT-J1040 Depo Medrol 80 mg (Methyl Prednisolone Acetate) 17:43: 43 BOW MAKING MACHINE OPERATOR CPT-J1100 Decadron 8mg (Dexamethasone) 17:43:42 BOW MAKING MACHINE OPERATOR CPT-49205 Abx/Therapy Injection 17:43:42 BOW MAKING MACHINE OPERATOR CPT-09298 Abx/Therapy Injection 17:43:42 BOW MAKING MACHINE OPERATOR CPT-J1040 Depo Medrol 80 mg (Methyl Prednisolone Acetate) 09:43: 34 BOW MAKING MACHINE OPERATOR CPT-J1100 Decadron 8mg (Dexamethasone) 09:43:34 BOW MAKING MACHINE OPERATOR CPT-J0696 Rocephin 1gm Inj Solr 09:43:34 BOW MAKING MACHINE OPERATOR CPT-29811 Wound Culture - LAB USE ONLY 14:00:21 CDT CPT-I/D I/D Abscess 09:16:37 CDT CPT-01106 Venipuncture Draw Fee 15:20:23 CDT CPT-38434 Microalbumin - LAB USE ONLY 16:02:19 CDT CPT-31237 CBC - LAB USE ONLY 16:02:19 CDT CPT-16258 Venipuncture Draw Fee 16:02:19 CDT CPT-G0438 Initial Annual Wellness Exam 08:10:28 CDT CPT-73836 Venipuncture Draw Fee 13:07:17 CDT CPT-G0008 Administration of Influenza Virus Vaccine 16:09:59 CDT CPT-81575 Fluzone Quadrivalent Intramuscular Suspension 0.5 ML 16: 09:59 CDT CPT-68424 Spec Collection and Handling Fee 15:05:50 CDT
--- OUTSIDE RECORDS SUMMARY | 2018-04-18 12:21 | XMS REPORT | Clinical Summary ---
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 OXYCODONE HCL 85146193045 Active Robbie Busby MD Active NITROSTAT 0.4 MG SUBL PRN NITROGLYCERIN 78184198729 No Longer Active Robbie Busby MD Active LORATADINE 10 MG TABS 1 tablet by mouth daily for congestion and allergies. LORATADINE 96608122886 No Longer Active Robbie Busby MD Active FLONASE 50 MCG/ACT SUSP 1 spray each nostril twice daily for allergies and runny nose FLUTICASONE PROPIONATE 91742132476 No Longer Active Robbie Busby MD Active FIORICET 50-300-40 MG ORAL CAPS take 1 tab po qday prn migraines. [id number] 66301747571 No Longer Active Robbie Busby MD Active VITAMIN D3 47852 UNIT CAPS 2 CAPS PO WEEKLY CHOLECALCIFEROL 27537817159 No Longer Active Robbie Busby MD Active CYCLOBENZAPRINE HCL 10 MG TABS 1 tablet by mouth three times daily as needed for muscle spasm/pain for 10 days CYCLOBENZAPRINE HCL 68688021131 No Longer Active Robbie Busby MD Active PREDNISONE 20 MG TAB take 3 tabs daily for 3 days, 2 tabs daily for 3 days, 1 tab daily for 3 days, 1/2 tab daily for 4 days PREDNISONE 94716768685 No Longer Active Erin Garsia APRN Active CLONIDINE HCL 0.2 MG ORAL TABS 1 TAB BY MOUTH EVERY 8 HOURS 12/29 CLONIDINE HCL 83828665569 No Longer Active Erin Garsia APRN Active MECLIZINE HCL 25 MG TAB one 4 times a day as needed for dizziness MECLIZINE HCL 83785470332 No Longer Active Erin Garsia APRN Active SPIRONOLACTONE 25 MG TAB 4 tablets by mouth daily SPIRONOLACTONE 59771039424 No Longer Active Erin Garsia APRN Active LEVAQUIN 500 MG TAB 1 tablet by mouth daily for 7 days LEVOFLOXACIN 39269064571 No Longer Active Erin Garsia APRN Active BACTRIM DS 800-160 MG TAB 1 tab by mouth twice daily TRIMETHOPRIM-SULFAMETHOXAZOLE 94586138552 No Longer Active Robbie Busby MD Active HYDRALAZINE HCL 50 MG ORAL TABS TWO BY MOUTH THREE TIMES DAILY HYDRALAZINE HCL 61134063747 No Longer Active Rober Rodríguez APRN Active HYDROCODONE-ACETAMINOPHEN 5-325 MG TABS 1 tab by mouth BID prn back pain 2013 HYDROCODONE-ACETAMINOPHEN 72099221168 No Longer Active Rober Rodríguez APRN Active HYDROCHLOROTHIAZIDE TABS Take one by mouth daily HYDROCHLOROTHIAZIDE TABS 11298799281 No Longer Active Jillina Frazell ACCOUNT EXECUTIVE Active LAMISIL 125 MG ORAL PACK 1 TAB PO DAILY TERBINAFINE HCL 60976842990 No Longer Active Jillina Frazell ACCOUNT EXECUTIVE Active TRILEPTAL 150 MG ORAL TABS 1 TAB PO Q HS OXCARBAZEPINE 49497912564 No Longer Active Jillina Frazell ACCOUNT EXECUTIVE Active BETADINE 10 % EXT SOLN wash with solution to treat follicultis POVIDONE-IODINE 51775514015 No Longer Active Jillina Frazell ACCOUNT EXECUTIVE Active NYSTATIN 882601 UNIT/ML M/T SUSP 5mL po QID x 10 days NYSTATIN 42223489354 No Longer Active Erin Garsia APRN Active PREDNISONE 20 MG TAB 1 tablet twice daily for 2 days, then 1 tablet once daily for 2 days PREDNISONE 15450202852 No Longer Active Robbie Busby MD Active CEFDINIR 300 MG ORAL CAPS Take 1 cap po bid x 10 days CEFDINIR 91725842084 No Longer Active Robbie Busby MD Active AMLODIPINE BESYLATE 10 MG TABS 1 tablet by mouth daily AMLODIPINE BESYLATE 46157348608 Active Robbie uBsby MD Active CARVEDILOL 25 MG TABS 1 & 1/2 TAB po BID CARVEDILOL 37772382812 Active Robbie Busby MD Active NEXIUM 40 MG CPDR 1 cap by mouth daily ESOMEPRAZOLE MAGNESIUM 82123997801 Active Robbie Busby MD Active PROTONIX 40 MG SOLR 1 po qday for acid reflux PANTOPRAZOLE SODIUM 76230070382 No Longer Active Gali Raida Active KEFLEX 500 MG CAP 1 po TID x 10 days CEPHALEXIN 80490400791 No Longer Active Robbie Busby MD Active TOPIRAMATE 50 MG ORAL TABS take 1 tab po BID for migraines. TOPIRAMATE 03572928400 Active Robbie Busby MD Active TEMAZEPAM 15 MG ORAL CAPS 1 TAB PO Q HS TEMAZEPAM 96718880800 Active Robbie Busby MD Active ALPRAZOLAM 2 MG ORAL TABS 1 TAB PO BID ALPRAZOLAM 26108314859 Active Robbie Busby MD Active FENOFIBRATE 145 MG TABS Take one by mouth daily FENOFIBRATE 38788657886 No Longer Active Robbie Busby MD Active SPIRONOLACTONE 50 MG TABS 1 tablet by mouth twice a day SPIRONOLACTONE 62029986106 No Longer Active Robbie Busby MD Active HYDRALAZINE HCL 25 MG TABS 1 tablet by mouth tid for hypertension HYDRALAZINE HCL 53700740529 No Longer Active Robbie Busby MD Active VIIBRYD 40 MG TABS take 1 tab po qday for depression. VILAZODONE HCL 18543743576 No Longer Active Robbie Busby MD Active TERBINAFINE HCL 250 MG TABS 1 tab po qday for foot infection 2014 TERBINAFINE HCL 63954864578 No Longer Active Robbie Busby MD Active GABAPENTIN 300 MG CAPS 1 po q hs for nerve pain GABAPENTIN 41879938108 Active Robbie Busby MD Active CHERATUSSIN AC 100-10 MG/5ML ORAL SOLN 7.5 mL PO q 4-6 hrs PRN cough GUAIFENESIN-CODEINE 97875053079 No Longer Active Robbie Busby MD Active AZITHROMYCIN 250 MG ORAL TABS 2 tablets PO today---then, 1 tablet PO daily x 4 more days (and 1 optional refill) AZITHROMYCIN 69443594321 No Longer Active Robbie Busby MD Active NORVASC 10 MG TAB 1 tablet by mouth daily AMLODIPINE BESYLATE 96688263230 No Longer Active Alex ALVAREZ Active IMDUR 60 MG TAB CR take 1 tab po qday for blood pressure ISOSORBIDE MONONITRATE Active Robbie Busby MD Active ISOSORBIDE DINITRATE 30 MG TABS Take one by mouth daily ISOSORBIDE DINITRATE 95528976358 No Longer Active Robbie Busby MD Active VIIBRYD 40 MG TABS 1 TA B PO DAILY VILAZODONE HCL 23316765271 Active Robbie Busby MD Active ZITHROMAX 250 MG TAB 2 po today, then 1 po q days 2-5 AZITHROMYCIN 48821068951 No Longer Active Robbie Busby MD Active [id number] 0.3 MG/24HR PTWK apply 2 patches q week for HTN CLONIDINE HCL 24829220686 Active Robbie Busby MD Active DOXAZOSIN MESYLATE 4 MG TABS Take one by mouth daily DOXAZOSIN MESYLATE 76598094203 Active Robbie Busby MD Active TOPROL XL 200 MG [id number] Take one by mouth daily METOPROLOL SUCCINATE 48741485734 Active Robbie Busby MD Active VENLAFAXINE HCL ER 150 MG [id number]-[id number] Take one by mouth daily VENLAFAXINE HCL 38776256413 Active Robbie Busby MD Active LIPITOR 40 MG TABS Take one by mouth daily ATORVASTATIN CALCIUM 36056724144 Active Robbie Busby MD Active ISOSORBIDE DINITRATE 30 MG TABS Take one by mouth daily ISOSORBIDE DINITRATE 30 MG TABS 541291 ISOSORBIDE DINITRATE Inactive NORVASC 10 MG TAB 1 tablet by mouth daily NORVASC 10 MG TAB 844051 AMLODIPINE BESYLATE Inactive AZITHROMYCIN 250 MG ORAL TABS 2 tablets PO today---then, 1 tablet PO daily x 4 more days (and 1 optional refill) AZITHROMYCIN 250 MG ORAL TABS 1841533 AZITHROMYCIN Inactive CHERATUSSIN AC 100-10 MG/5ML ORAL SOLN 7.5 mL PO q 4-6 hrs PRN cough CHERATUSSIN AC 100-10 MG/5ML ORAL SOLN 597293 GUAIFENESIN- CODEINE Inactive VIIBRYD 40 MG TABS take 1 tab po qday for depression. VIIBRYD 40 MG TABS VILAZODONE HCL Inactive HYDRALAZINE HCL 25 MG TABS 1 tablet by mouth tid for hypertension HYDRALAZINE HCL 25 MG TABS 240510 HYDRALAZINE HCL Inactive SPIRONOLACTONE 50 MG TABS 1 tablet by mouth twice a day SPIRONOLACTONE 50 MG TABS 379809 SPIRONOLACTONE Inactive FENOFIBRATE 145 MG TABS Take one by mouth daily FENOFIBRATE 145 MG TABS 894286 FENOFIBRATE Inactive PROTONIX 40 MG SOLR 1 po qday for acid reflux PROTONIX 40 MG SOLR 601357 PANTOPRAZOLE SODIUM Inactive CEFDINIR 300 MG ORAL CAPS Take 1 cap po bid x 10 days CEFDINIR 300 MG ORAL CAPS 943898 CEFDINIR Inactive PREDNISONE 20 MG TAB 1 tablet twice daily for 2 days, then 1 tablet once daily for 2 days PREDNISONE 20 MG TAB 301281 PREDNISONE Inactive NYSTATIN 210552 UNIT/ML M/T SUSP 5mL po QID x 10 days NYSTATIN 066234 UNIT/ML M/T SUSP 394556 NYSTATIN Inactive BETADINE 10 % EXT SOLN wash with solution to treat follicultis BETADINE 10 % EXT SOLN 7871657 POVIDONE-IODINE Inactive TRILEPTAL 150 MG ORAL TABS 1 TAB PO Q HS TRILEPTAL 150 MG ORAL TABS 478925 OXCARBAZEPINE Inactive LAMISIL 125 MG ORAL PACK 1 TAB PO DAILY LAMISIL 125 MG ORAL PACK TERBINAFINE HCL Inactive HYDROCHLOROTHIAZIDE TABS Take one by mouth daily HYDROCHLOROTHIAZIDE TABS HYDROCHLOROTHIAZIDE TABS Inactive HYDROCODONE-ACETAMINOPHEN 5-325 MG TABS 1 tab by mouth BID prn back pain 2013 HYDROCODONE-ACETAMINOPHEN 5-325 MG TABS 643552 HYDROCODONE -ACETAMINOPHEN Inactive HYDRALAZINE HCL 50 MG ORAL TABS TWO BY MOUTH THREE TIMES DAILY HYDRALAZINE HCL 50 MG ORAL TABS 344257 HYDRALAZINE HCL Inactive LEVAQUIN 500 MG TAB 1 tablet by mouth daily for 7 days LEVAQUIN 500 MG TAB 942271 LEVOFLOXACIN Inactive SPIRONOLACTONE 25 MG TAB 4 tablets by mouth daily SPIRONOLACTONE 25 MG TAB 112039 SPIRONOLACTONE Inactive MECLIZINE HCL 25 MG TAB one 4 times a day as needed for dizziness MECLIZINE HCL 25 MG TAB 892556 MECLIZINE HCL Inactive CLONIDINE HCL 0.2 MG ORAL TABS 1 TAB BY MOUTH EVERY 8 HOURS 12/29 CLONIDINE HCL 0.2 MG ORAL TABS 949550 CLONIDINE HCL Inactive CYCLOBENZAPRINE HCL 10 MG TABS 1 tablet by mouth three times daily as needed for muscle spasm/pain for 10 days CYCLOBENZAPRINE HCL 10 MG TABS 871476 CYCLOBENZAPRINE HCL Inactive VITAMIN D3 89178 UNIT CAPS 2 CAPS PO WEEKLY VITAMIN D3 62315 UNIT CAPS CHOLECALCIFEROL Inactive FIORICET 50-300-40 MG ORAL CAPS take 1 tab po qday prn migraines. FIORICET 50-300-40 MG ORAL CAPS 389675 [id number] Inactive FLONASE 50 MCG/ACT SUSP 1 spray each nostril twice daily for allergies and runny nose FLONASE 50 MCG/ACT SUSP 0516171 FLUTICASONE PROPIONATE Inactive LORATADINE 10 MG TABS 1 tablet by mouth daily for congestion and allergies. LORATADINE 10 MG TABS 287223 LORATADINE Inactive NITROSTAT 0.4 MG SUBL PRN NITROSTAT 0.4 MG SUBL 247313 NITROGLYCERIN Inactive ZITHROMAX 250 MG TAB 2 po today, then 1 po q days 2-5 ZITHROMAX 250 MG TAB 5374574 AZITHROMYCIN Inactive TERBINAFINE HCL 250 MG TABS 1 tab po qday for foot infection 2014 TERBINAFINE HCL 250 MG TABS 559834 TERBINAFINE HCL Inactive KEFLEX 500 MG CAP 1 po TID x 10 days KEFLEX 500 MG CAP 967250 CEPHALEXIN Inactive BACTRIM DS 800-160 MG TAB 1 tab by mouth twice daily BACTRIM DS 800-160 MG TAB 967122 TRIMETHOPRIM-SULFAMETHOXAZOLE Inactive PREDNISONE 20 MG TAB take 3 tabs daily for 3 days, 2 tabs daily for 3 days, 1 tab daily for 3 days, 1/2 tab daily for 4 days PREDNISONE 20 MG TAB 412649 PREDNISONE Inactive Advance Directives Directive Description Start [...] % 11.0-15.0 platelet count 185 THOUSAND/UL 10*3/mm3 433-281 6622/04/14 mean platelet volume 10.9 fL 7.5-12.5 Lab Report: LIPID PANEL, TSH/899, T4, FREE/866 - Chemistry cholesterol, serum 220 mg/dL 592-317 0733/04/14 HDL cholesterol, serum 30 mg/dL > OR=40 [...] mg/dL Encounters Code Encounter Date Provider Facility CPT-71374 Level 3 Est. Patient 16:07:10 CDT Robbie Busby MD [facility] CPT-78333 Level 4 Est. Patient 11:56:16 CDT Erin Garsia [facility] CPT-90858 Level 3 Est. Patient 17:48:02 CDT Robbie Busby MD [facility] CPT-51999 Level 4 Est. Patient 12:00:49 FIELD GAUGER Rober Rodríguez [facility] CPT-85790 Level 3 Est. Patient 09:16:37 CDT Robbie Busby MD [facility] CPT-07882 Level 3 Est. Patient 19:38:43 CDT Robbie Busby MD [facility] CPT-12090 Level 3 Est. Patient 11:53:38 CDT Robbie Busby MD [facility] CPT-22431 Level 4 Est. Patient 12:52:22 CDT Rober Rodríguez [facility] CPT-41198 Level 4 Est. Patient 22:55:17 CDT Robbie Busby MD [facility] CPT-47609 Level 3 Est. Patient 12:38:24 CDT Desmond Diaz DO [facility] CPT-19286 Level 4 Est. Patient 11:25:03 FIELD GAUGER Robbie uBsby MD [facility] CPT-46492 Level 4 Est. Patient 14:50:10 CDT Robbie Busby MD [facility] CPT-97016 Level 4 Est. Patient 23:30:43 CDT Robbie Busby MD [facility] CPT-19744 Level 4 Est. Patient 10:30:43 CDT Robbie Busby MD [facility] CPT-93282 Level 3 Est. Patient 17:08:12 CDT [facility] CPT-59726 Level 4 Est. Patient 17:51:38 CDT Robbie Busby MD [facility] CPT-72615 Level 4 Est. Patient 14:00:21 CDT Robbie Busby MD [facility] CPT-27068 Level 4 Est. Patient 12:46:48 CDT Robbie Busby MD [facility] CPT-00575 Level 4 Est. Patient 13:34:33 CDT Robbie Busby MD [facility] CPT-59121 Level 4 Est. Patient 16:58:28 CDT Robbie Busby MD [facility] CPT-03029 Level 3 Est. Patient 19:36:53 CDT Alex ALVAREZ [facility] CPT-63759 Level 3 Est. Patient 12:58:15 CDT Robbie Busby MD [facility] Procedures Code Procedure Name Date Entry Date Standard Description CPT-51184 Ribs unilateral 2V - XRAY USE ONLY 12:10:11 CDT CPT-69907 First Vx - Ix admin for Medicare patients 16:32:53 CDT CPT-07630 Boostrix Intramuscular Suspension 5-2.5-18.5 16:32:53 CDT CPT-62052 TB Skin Test 11:42:28 CDT CPT-99679 Tdap 7yrs or > 11:42:28 CDT CPT-J0696 Rocephin 1000 mg (Ceftriaxone) 17:43:43 FIELD GAUGER CPT-J1040 Depo Medrol 80 mg (Methyl Prednisolone Acetate) 17:43: 43 FIELD GAUGER CPT-J1100 Decadron 8mg (Dexamethasone) 17:43:42 FIELD GAUGER CPT-81532 Abx/Therapy Injection 17:43:42 FIELD GAUGER CPT-45345 Abx/Therapy Injection 17:43:42 FIELD GAUGER CPT-J1040 Depo Medrol 80 mg (Methyl Prednisolone Acetate) 09:43: 34 FIELD GAUGER CPT-J1100 Decadron 8mg (Dexamethasone) 09:43:34 FIELD GAUGER CPT-J0696 Rocephin 1gm Inj Solr 09:43:34 FIELD GAUGER CPT-30951 Wound Culture - LAB USE ONLY 14:00:21 CDT CPT-I/D I/D Abscess 09:16:37 CDT CPT-80024 Venipuncture Draw Fee 15:20:23 CDT CPT-65728 Microalbumin - LAB USE ONLY 16:02:19 CDT CPT-07067 CBC - LAB USE ONLY 16:02:19 CDT CPT-41557 Venipuncture Draw Fee 16:02:19 CDT CPT-G0438 Initial Annual Wellness Exam 08:10:28 CDT CPT-65683 Venipuncture Draw Fee 13:07:17 CDT CPT-G0008 Administration of Influenza Virus Vaccine 16:09:59 CDT CPT-90918 Fluzone Quadrivalent Intramuscular Suspension 0.5 ML 16: 09:59 CDT CPT-55531 Spec Collection and Handling Fee 15:05:50 CDT
--- OUTSIDE RECORDS SUMMARY | 2018-04-18 12:22 | XMS REPORT | Clinical Summary ---
Author Author Admin, Nicolas Organization [facility] Address Unknown [...] unspecified sites URI 465.9 Active Rober Rodríguez SYSTEM ANALYST Acute upper respiratory infections of unspecified site Hypertension 401.9 Active Rober Rodríguez SYSTEM ANALYST Unspecified essential hypertension Sinusitis - acute [...] pain, chronic 724.2 Active Robbie Busby MD [facility] Medication List Medication Instructions Start Date Stop Date Generic Name NDC Status Provider Patient Instruction GUAIFENESIN ER 600 MG ORAL TABLET EXTENDED RELEASE 12 HOUR 1 tab po q am 2016 GUAIFENESIN [id number] No Longer Active Robbie Busby MD Active DIVALPROEX SODIUM ER 500 MG ORAL TABLET EXTENDED RELEASE 24 HOUR Once daily DIVALPROEX SODIUM 11760373766 Active Robbie Busby MD Active DEPO-TESTOSTERONE 200 MG/ML INTRAMUSCULAR SOLUTION 1 IM Injections every 2 weeks for low testosterone TESTOSTERONE CYPIONATE 96959685790 Active Zulema Blank LPN Active CYCLOBENZAPRINE HCL 10 MG ORAL TABLET 1 po TID PRN muscle spasm/pain for 10 days CYCLOBENZAPRINE HCL 10006638326 Active JONATHAN Moncada Active FLUTICASONE PROPIONATE 50 MCG/ACT NASAL SUSPENSION 2 sprays per nostril bid for 1 week, then 1 spray bid FLUTICASONE PROPIONATE 41907551372 Active Rober Rodríguez SYSTEM ANALYST Active HYDRALAZINE HCL 25 MG ORAL TABLET Take 1 tab BID. HYDRALAZINE HCL 46702430873 Active Rober Rodríguez APRN Active VITAMIN D3 73152 UNIT ORAL TABLET 2 po weekly CHOLECALCIFEROL 96150170712 Active Robbie Busby MD Active OXYCODONE HCL ER 10 MG ORAL TABLET ER 12 HOUR ABUSE-DETERRENT 1 tab po 3 times qd. OXYCODONE HCL 76837634078 Active Robbie Busby MD Active NITROSTAT 0.4 MG SUBLINGUAL TABLET SUBLINGUAL PRN NITROGLYCERIN 79657264192 No Longer Active Robbie Busby MD Active LORATADINE 10 MG ORAL TABLET 1 tablet by mouth daily for congestion and allergies. LORATADINE 44750823924 No Longer Active Robbie Busby MD Active FLONASE 50 MCG/ACT NASAL SUSPENSION 1 spray each nostril twice daily for allergies and runny nose FLUTICASONE PROPIONATE 08394408139 No Longer Active Robbie Busby MD Active FIORICET 50-300-40 MG ORAL CAPSULE take 1 tab po qday prn migraines. [id number] 10987123401 No Longer Active Robbie Busby MD Active VITAMIN D3 26532 UNIT ORAL CAPSULE 2 CAPS PO WEEKLY CHOLECALCIFEROL 09134519439 No Longer Active Robbie Busby MD Active CYCLOBENZAPRINE HCL 10 MG ORAL TABLET 1 tablet by mouth three times daily as needed for muscle spasm/pain for 10 days CYCLOBENZAPRINE HCL 55271126850 No Longer Active Robbie Busby MD Active PREDNISONE 20 MG ORAL TABLET take 3 tabs daily for 3 days, 2 tabs daily for 3 days, 1 tab daily for 3 days, 1/2 tab daily for 4 days PREDNISONE 69978931596 No Longer Active Erin Garsia APRN Active CLONIDINE HCL 0.2 MG ORAL TABLET 1 TAB BY MOUTH EVERY 8 HOURS CLONIDINE HCL 63533796033 No Longer Active Erin Garsia APRN Active MECLIZINE HCL 25 MG ORAL TABLET one 4 times a day as needed for dizziness MECLIZINE HCL 50650707178 No Longer Active Erin Garsia APRN Active SPIRONOLACTONE 25 MG ORAL TABLET 4 tablets by mouth daily SPIRONOLACTONE 78824900852 No Longer Active Erin Garsia APRN Active LEVAQUIN 500 MG ORAL TABLET 1 tablet by mouth daily for 7 days LEVOFLOXACIN 51699331699 No Longer Active Erin Garsia APRN Active BACTRIM DS 800-160 MG ORAL TABLET 1 tab by mouth twice daily 2015 TRIMETHOPRIM-SULFAMETHOXAZOLE 77605664406 No Longer Active Robbie Busby MD Active HYDRALAZINE HCL 50 MG ORAL TABLET TWO BY MOUTH THREE TIMES DAILY HYDRALAZINE HCL 37630627597 No Longer Active Jillld Rodríguez APRN Active HYDROCODONE-ACETAMINOPHEN 5-325 MG ORAL TABLET 1 tab by mouth BID prn back pain HYDROCODONE-ACETAMINOPHEN 92295097525 No Longer Active Jillina Anne GONZALEZN Active HYDROCHLOROTHIAZIDE TABLET Take one by mouth daily HYDROCHLOROTHIAZIDE TABS 04734175194 No Longer Active Jillld Rodríguez APRN Active LAMISIL 125 MG ORAL PACKET 1 TAB PO DAILY TERBINAFINE HCL 58062938466 No Longer Active Andrellld Rodríguez APRN Active TRILEPTAL 150 MG ORAL TABLET 1 TAB PO Q HS OXCARBAZEPINE 55772615484 No Longer Active Rober Rodríguez APRN Active BETADINE 10 % EXTERNAL SOLUTION 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 07/29 POVIDONE-IODINE 08823563563 No Longer Active Rober Rodríguez APRN Active NYSTATIN 939775 UNIT/ML MOUTH/THROAT SUSPENSION 5mL po QID x 10 days NYSTATIN 55355305395 No Longer Active Erin Garsia APRN Active PREDNISONE 20 MG ORAL TABLET 1 tablet twice daily for 2 days, then 1 tablet once daily for 2 days PREDNISONE 72779696379 No Longer Active Robbie Busby MD Active CEFDINIR 300 MG ORAL CAPSULE Take 1 cap po bid x 10 days CEFDINIR 54420621060 No Longer Active Robbie Busby MD Active AMLODIPINE BESYLATE 10 MG ORAL TABLET 1 tablet by mouth daily AMLODIPINE BESYLATE 09556630578 Active Robbie Busby MD Active CARVEDILOL 25 MG ORAL TABLET 1 & 1/2 TAB po BID CARVEDILOL 00659991205 Active Robbie Busby MD Active NEXIUM 40 MG ORAL CAPSULE DELAYED RELEASE 1 cap by mouth daily ESOMEPRAZOLE MAGNESIUM 03523554686 Active Robbie Busby MD Active PROTONIX 40 MG INTRAVENOUS SOLUTION RECONSTITUTED 1 po qday for acid reflux PANTOPRAZOLE SODIUM 91700678291 No Longer Active Gali Raida Active KEFLEX 500 MG ORAL CAPSULE 1 po TID x 10 days CEPHALEXIN 62291670049 No Longer Active Robbie Busby MD Active TOPIRAMATE 50 MG ORAL TABLET take 1 tab po BID for migraines. TOPIRAMATE 85754031814 Active Robbie Busby MD Active TEMAZEPAM 15 MG ORAL CAPSULE 1 TAB PO Q HS TEMAZEPAM 20451880354 Active Robbie Busby MD Active ALPRAZOLAM 2 MG ORAL TABLET 1 TAB PO BID ALPRAZOLAM 85123460595 Active Robbie Busby MD Active FENOFIBRATE 145 MG ORAL TABLET Take one by mouth daily FENOFIBRATE 80926135031 No Longer Active Robbie Busby MD Active SPIRONOLACTONE 50 MG ORAL TABLET 1 tablet by mouth twice a day SPIRONOLACTONE 24110599902 No Longer Active Robbie Busby MD Active HYDRALAZINE HCL 25 MG ORAL TABLET 1 tablet by mouth tid for hypertension 2013 HYDRALAZINE HCL 89307035679 No Longer Active Robbie Busby MD Active VIIBRYD 40 MG ORAL TABLET take 1 tab po qday for depression. 2014 VILAZODONE HCL 24089515207 No Longer Active Robbie Busby MD Active TERBINAFINE HCL 250 MG ORAL TABLET 1 tab po qday for foot infection TERBINAFINE HCL 49790196877 No Longer Active Robbie Busby MD Active GABAPENTIN 300 MG ORAL CAPSULE 1 po q hs for nerve pain GABAPENTIN 23894803092 Active Robbie Busby MD Active CHERATUSSIN AC 100-10 MG/5ML ORAL SOLUTION 7.5 mL PO q 4-6 hrs PRN cough 2014 GUAIFENESIN-CODEINE 63144515514 No Longer Active Robbie Busby MD Active AZITHROMYCIN 250 MG ORAL TABLET 2 tablets PO today---then, 1 tablet PO daily x 4 more days (and 1 optional refill) AZITHROMYCIN 56702090467 No Longer Active Robbie Busby MD Active NORVASC 10 MG ORAL TABLET 1 tablet by mouth daily AMLODIPINE BESYLATE 59285838900 No Longer Active Alex ALVAREZ Active IMDUR 60 MG ORAL TABLET EXTENDED RELEASE 24 HOUR take 1 tab po qday for blood pressure ISOSORBIDE MONONITRATE 68302410122 Active Robbie Busby MD Active ISOSORBIDE DINITRATE 30 MG ORAL TABLET Take one by mouth daily ISOSORBIDE DINITRATE 79786242937 No Longer Active Robbie Busby MD Active VIIBRYD 40 MG ORAL TABLET 1 TA B PO DAILY VILAZODONE HCL 60914118763 Active Robbie Busby MD Active ZITHROMAX 250 MG ORAL TABLET 2 po today, then 1 po q days 2-5 AZITHROMYCIN 52079866764 No Longer Active Robbie Busby MD Active [id number] 0.3 MG/24HR TRANSDERMAL PATCH WEEKLY apply 2 patches q week for HTN CLONIDINE HCL 60358160438 Active Robbie Busby MD Active DOXAZOSIN MESYLATE 4 MG ORAL TABLET Take one by mouth daily DOXAZOSIN MESYLATE 85708731034 Active Robbie Busby MD Active TOPROL XL 200 MG ORAL TABLET EXTENDED RELEASE 24 HOUR Take one by mouth daily METOPROLOL SUCCINATE 13112302438 Active Robbie Busby MD Active VENLAFAXINE HCL ER 150 MG ORAL TABLET EXTENDED RELEASE 24 HOUR Take one by mouth daily VENLAFAXINE HCL 48732812577 Active Robbie Busby MD Active LIPITOR 40 MG ORAL TABLET Take one by mouth daily ATORVASTATIN CALCIUM 54077707478 Active Robbie Busby MD Active ISOSORBIDE DINITRATE 30 MG ORAL TABLET Take one by mouth daily ISOSORBIDE DINITRATE 30 MG ORAL TABLET 779648 ISOSORBIDE DINITRATE Inactive NORVASC 10 MG ORAL TABLET 1 tablet by mouth daily NORVASC 10 MG ORAL TABLET 740245 AMLODIPINE BESYLATE Inactive AZITHROMYCIN 250 MG ORAL TABLET 2 tablets PO today---then, 1 tablet PO daily x 4 more days (and 1 optional refill) AZITHROMYCIN 250 MG ORAL TABLET 552314 AZITHROMYCIN Inactive CHERATUSSIN AC 100-10 MG/5ML ORAL SOLUTION 7.5 mL PO q 4-6 hrs PRN cough 2014 CHERATUSSIN AC 100-10 MG/5ML ORAL SOLUTION 690683 GUAIFENESIN-CODEINE Inactive VIIBRYD 40 MG ORAL TABLET take 1 tab po qday for depression. 2014 VIIBRYD 40 MG ORAL TABLET VILAZODONE HCL Inactive HYDRALAZINE HCL 25 MG ORAL TABLET 1 tablet by mouth tid for hypertension 2013 HYDRALAZINE HCL 25 MG ORAL TABLET 154516 HYDRALAZINE HCL Inactive SPIRONOLACTONE 50 MG ORAL TABLET 1 tablet by mouth twice a day SPIRONOLACTONE 50 MG ORAL TABLET 018812 SPIRONOLACTONE Inactive FENOFIBRATE 145 MG ORAL TABLET Take one by mouth daily FENOFIBRATE 145 MG ORAL TABLET 011601 FENOFIBRATE Inactive PROTONIX 40 MG INTRAVENOUS SOLUTION RECONSTITUTED 1 po qday for acid reflux PROTONIX 40 MG INTRAVENOUS SOLUTION RECONSTITUTED 146563 PANTOPRAZOLE SODIUM Inactive CEFDINIR 300 MG ORAL CAPSULE Take 1 cap po bid x 10 days CEFDINIR 300 MG ORAL CAPSULE 007513 CEFDINIR Inactive PREDNISONE 20 MG ORAL TABLET 1 tablet twice daily for 2 days, then 1 tablet once daily for 2 days PREDNISONE 20 MG ORAL TABLET 129896 PREDNISONE Inactive NYSTATIN 947824 UNIT/ML MOUTH/THROAT SUSPENSION 5mL po QID x 10 days NYSTATIN 198394 UNIT/ML MOUTH/THROAT SUSPENSION 685421 NYSTATIN Inactive BETADINE 10 % EXTERNAL SOLUTION wash with solution to treat follicultis 07/29 BETADINE 10 % EXTERNAL SOLUTION 1557519 POVIDONE-IODINE Inactive TRILEPTAL 150 MG ORAL TABLET 1 TAB PO Q HS TRILEPTAL 150 MG ORAL TABLET 976011 OXCARBAZEPINE Inactive LAMISIL 125 MG ORAL PACKET 1 TAB PO DAILY LAMISIL 125 MG ORAL PACKET TERBINAFINE HCL Inactive HYDROCHLOROTHIAZIDE TABLET Take one by mouth daily HYDROCHLOROTHIAZIDE TABLET HYDROCHLOROTHIAZIDE TABS Inactive HYDROCODONE-ACETAMINOPHEN 5-325 MG ORAL TABLET 1 tab by mouth BID prn back pain HYDROCODONE-ACETAMINOPHEN 5-325 MG ORAL TABLET 723044 HYDROCODONE-ACETAMINOPHEN Inactive HYDRALAZINE HCL 50 MG ORAL TABLET TWO BY MOUTH THREE TIMES DAILY HYDRALAZINE HCL 50 MG ORAL TABLET 588853 HYDRALAZINE HCL Inactive LEVAQUIN 500 MG ORAL TABLET 1 tablet by mouth daily for 7 days LEVAQUIN 500 MG ORAL TABLET 902599 LEVOFLOXACIN Inactive SPIRONOLACTONE 25 MG ORAL TABLET 4 tablets by mouth daily SPIRONOLACTONE 25 MG ORAL TABLET 658948 SPIRONOLACTONE Inactive MECLIZINE HCL 25 MG ORAL TABLET one 4 times a day as needed for dizziness MECLIZINE HCL 25 MG ORAL TABLET 054870 MECLIZINE HCL Inactive CLONIDINE HCL 0.2 MG ORAL TABLET 1 TAB BY MOUTH EVERY 8 HOURS CLONIDINE HCL 0.2 MG ORAL TABLET 340639 CLONIDINE HCL Inactive CYCLOBENZAPRINE HCL 10 MG ORAL TABLET 1 tablet by mouth three times daily as needed for muscle spasm/pain for 10 days CYCLOBENZAPRINE HCL 10 MG ORAL TABLET 892986 CYCLOBENZAPRINE HCL Inactive VITAMIN D3 43647 UNIT ORAL CAPSULE 2 CAPS PO WEEKLY VITAMIN D3 18256 UNIT ORAL CAPSULE CHOLECALCIFEROL Inactive FIORICET 50-300-40 MG ORAL CAPSULE take 1 tab po qday prn migraines. FIORICET 50-300-40 MG ORAL CAPSULE 889096 BUTALBITAL-APAP- CAFFEINE Inactive FLONASE 50 MCG/ACT NASAL SUSPENSION 1 spray each nostril twice daily for allergies and runny nose FLONASE 50 MCG/ACT NASAL SUSPENSION 9728746 FLUTICASONE PROPIONATE Inactive LORATADINE 10 MG ORAL TABLET 1 tablet by mouth daily for congestion and allergies. LORATADINE 10 MG ORAL TABLET 604776 LORATADINE Inactive NITROSTAT 0.4 MG SUBLINGUAL TABLET SUBLINGUAL PRN NITROSTAT 0.4 MG SUBLINGUAL TABLET SUBLINGUAL 751607 NITROGLYCERIN Inactive GUAIFENESIN ER 600 MG ORAL TABLET EXTENDED RELEASE 12 HOUR 1 tab po q am 2016 GUAIFENESIN ER 600 MG ORAL TABLET EXTENDED RELEASE 12 HOUR GUAIFENESIN Inactive ZITHROMAX 250 MG ORAL TABLET 2 po today, then 1 po q days 2-5 ZITHROMAX 250 MG ORAL TABLET 532938 AZITHROMYCIN Inactive TERBINAFINE HCL 250 MG ORAL TABLET 1 tab po qday for foot infection TERBINAFINE HCL 250 MG ORAL TABLET 284118 TERBINAFINE HCL Inactive KEFLEX 500 MG ORAL CAPSULE 1 po TID x 10 days KEFLEX 500 MG ORAL CAPSULE 829527 CEPHALEXIN Inactive BACTRIM DS 800-160 MG ORAL TABLET 1 tab by mouth twice daily 2015 BACTRIM DS 800-160 MG ORAL TABLET 141647 TRIMETHOPRIM- SULFAMETHOXAZOLE Inactive PREDNISONE 20 MG ORAL TABLET take 3 tabs daily for 3 days, 2 tabs daily for 3 days, 1 tab daily for 3 days, 1/2 tab daily for 4 days PREDNISONE 20 MG ORAL TABLET 950387 PREDNISONE Inactive Advance Directives Directive Description Start [...] AUTO - Chemistry sodium, serum 142 mmol/L 318-491 7543/07/17 carbon dioxide, venous blood 28.2 mmol/L 21.0-32.0 [...] % 11.0-15.0 platelet count 185 THOUSAND/UL 10*3/mm3 713-715 4460/04/14 mean platelet volume 10.9 fL 7.5-12.5 Lab Report: LIPID PANEL, TSH/899, T4, FREE/866 - Chemistry cholesterol, serum 220 mg/dL 094-452 5053/04/14 HDL cholesterol, serum 30 mg/dL > OR=40 [...] mg/dL Encounters Code Encounter Date Provider Facility CPT-94161 Level 3 Est. Patient 15:40:49 CDT Robbie Busby MD [facility] CPT-38190 Level 4 Est. Patient 15:18:19 CDT Robbie Busby MD [facility] CPT-96430 Level 3 Est. Patient 09:00:37 CDT Rober Rodríguez [facility] CPT-85692 Level 3 Est. Patient 16:07:10 CDT Robbie Busby MD [facility] CPT-12673 Level 4 Est. Patient 11:56:16 CDT Erin Garsia [facility] CPT-00591 Level 3 Est. Patient 17:48:02 CDT Robbie Busby MD [facility] CPT-47171 Level 4 Est. 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 Patient 09:16:37 CDT Robbie Busby MD [facility] CPT-53071 Level 3 Est. Patient 19:38:43 CDT Robbie Busby MD [facility] CPT-60658 Level 3 Est. Patient 11:53:38 CDT Robbie Busby MD [facility] CPT-01987 Level 4 Est. Patient 12:52:22 CDT Rober Rodríguez [facility] CPT-65338 Level 4 Est. Patient 22:55:17 CDT Robbie Busby MD [facility] CPT-02770 Level 3 Est. Patient 12:38:24 CDT Desmond Diaz DO [facility] CPT-04102 Level 4 Est. Patient 11:25:03 KNURLING MACHINE OPERATOR Robbie Busby MD [facility] CPT-32859 Level 4 Est. Patient 14:50:10 CDT Robbie Busby MD [facility] CPT-20214 Level 4 Est. Patient 23:30:43 CDT Robbie Busby MD [facility] CPT-51320 Level 4 Est. Patient 10:30:43 CDT Robbie Busby MD [facility] CPT-57570 Level 3 Est. Patient 17:08:12 CDT Alex ALVAREZ [facility] CPT-53763 Level 4 Est. Patient 17:51:38 CDT Robbie Busby MD [facility] CPT-45272 Level 4 Est. Patient 14:00:21 CDT Robbie Busby MD [facility] CPT-14241 Level 4 Est. Patient 12:46:48 CDT Robbie Busby MD [facility] CPT-58279 Level 4 Est. Patient 13:34:33 CDT Robbie Busby MD [facility] CPT-03791 Level 4 Est. Patient 16:58:28 CDT Robbie Busby MD [facility] CPT-97507 Level 3 Est. Patient 19:36:53 CDT Alex Shaw [facility] CPT-71096 Level 3 Est. Patient 12:58:15 CDT Robbie Busby MD [facility] Procedures Code Procedure Name Date Entry Date Standard Description CPT-J1071 Depo Testosterone 200mg 09:38:36 KNURLING MACHINE OPERATOR CPT-13184 Abx/Therapy Injection 09:38:36 KNURLING MACHINE OPERATOR CPT-J1071 Depo Testosterone 200mg 10:22:56 KNURLING MACHINE OPERATOR CPT-93897 Abx/Therapy Injection 10:22:56 KNURLING MACHINE OPERATOR CPT-J1071 Depo Testosterone 200mg 15:40:23 CDT CPT-67025 Abx/Therapy Injection 15:40:23 CDT CPT-J1071 Depo Testosterone 200mg 14:20:43 CDT CPT-63714 Abx/Therapy Injection 14:20:43 CDT CPT-J1071 Depo Testosterone 200mg 14:17:22 CDT CPT-09853 Abx/Therapy Injection 14:17:22 CDT CPT-J1071 Depo Testosterone 200mg 09:03:53 CDT CPT-25796 Abx/Therapy Injection 09:03:53 CDT CPT-G0439 [facility] Annual Wellness Exam 16:47:44 CDT CPT-J1071 Depo Testosterone 200mg 09:06:28 CDT CPT-94006 Abx/Therapy Injection 09:06:28 CDT CPT-J1071 Depo Testosterone 200mg 08:30:01 CDT CPT-88990 Abx/Therapy Injection 08:30:01 CDT CPT-J1071 Depo Testosterone 200mg 08:24:00 CDT CPT-72737 Abx/Therapy Injection 08:24:00 CDT CPT-79841 Venipuncture Draw Fee 14:39:06 CDT CPT-09538 Ribs unilateral 2V - XRAY USE ONLY 12:10:11 CDT CPT-50384 First Vx - Ix admin for Medicare patients 16:32:53 CDT CPT-17681 Boostrix Intramuscular Suspension 5-2.5-18.5 16:32:53 CDT CPT-48621 TB Skin Test 11:42:28 CDT CPT-20753 Tdap 7yrs or > 11:42:28 CDT CPT-J0696 Rocephin 1000 mg (Ceftriaxone) 17:43:43 KNURLING MACHINE OPERATOR CPT-J1040 Depo Medrol 80 mg (Methyl Prednisolone Acetate) 17:43: 43 KNURLING MACHINE OPERATOR CPT-J1100 Decadron 8mg (Dexamethasone) 17:43:42 KNURLING MACHINE OPERATOR CPT-94756 Abx/Therapy Injection 17:43:42 KNURLING MACHINE OPERATOR CPT-41783 Abx/Therapy Injection 17:43:42 KNURLING MACHINE OPERATOR CPT-J1040 Depo Medrol 80 mg (Methyl Prednisolone Acetate) 09:43: 34 KNURLING MACHINE OPERATOR CPT-J1100 Decadron 8mg (Dexamethasone) 09:43:34 KNURLING MACHINE OPERATOR CPT-J0696 Rocephin 1gm Inj Solr 09:43:34 KNURLING MACHINE OPERATOR CPT-31819 Wound Culture - LAB USE ONLY 14:00:21 CDT CPT-I/D I/D Abscess 09:16:37 CDT CPT-22842 Venipuncture Draw Fee 15:20:23 CDT CPT-37745 Microalbumin - LAB USE ONLY 16:02:19 CDT CPT-36571 CBC - LAB USE ONLY 16:02:19 CDT CPT-13478 Venipuncture Draw Fee 16:02:19 CDT CPT-G0438 Initial Annual Wellness Exam 08:10:28 CDT CPT-60659 Venipuncture Draw Fee 13:07:17 CDT CPT-G0008 Administration of Influenza Virus Vaccine 16:09:59 CDT CPT-90526 Fluzone Quadrivalent Intramuscular Suspension 0.5 ML 16: 09:59 CDT CPT-86923 Spec Collection and Handling Fee 15:05:50 CDT
--- OUTSIDE RECORDS SUMMARY | 2018-04-18 12:23 | XMS REPORT | Clinical Summary ---
Author Author Admin, AKUA Organization [employer] Address Unknown Phone Unavailable Allergies, Adverse Reactions, [...] Active Robbie Busby MD Myocardial Infarction: Active Robbei Busby MD Acute myocardial infarction, unspecified site, [...] Status Provider Patient Instruction GUAIFENESIN 600 MG [id number] 1 tab po q am GUAIFENESIN 24775006472 Active Jillina Frazell [employer] TELL[employer] Active FLUTICASONE PROPIONATE 50 MCG/ACT SUSP 2 sprays per nostril bid for 1 week, then 1 spray bid FLUTICASONE PROPIONATE 17664884646 Active Jillina Frazell [employer] TELL[employer] Active HYDRALAZINE HCL 25 MG ORAL TABS Take 1 tab BID. HYDRALAZINE HCL 53796259973 Active Jillina Frazell [employer] TELLER Active VITAMIN D3 08001 UNIT ORAL TABS 2 po weekly CHOLECALCIFEROL 57954049381 Active JONATHAN Moncada Active OXYCODONE HCL ER 10 MG ORAL T12A 1 tab po 3 times qd. OXYCODONE HCL 29990958532 Active Robbie Busby MD Active NITROSTAT 0.4 MG SUBL PRN NITROGLYCERIN 45257192272 No Longer Active Robbie Busby MD Active LORATADINE 10 MG TABS 1 tablet by mouth daily for congestion and allergies. LORATADINE 47066513789 No Longer Active Robbie Bsuby MD Active FLONASE 50 MCG/ACT SUSP 1 spray each nostril twice daily for allergies and runny nose FLUTICASONE PROPIONATE 36770542657 No Longer Active Robbie Busby MD Active FIORICET 50-300-40 MG ORAL CAPS take 1 tab po qday prn migraines. [id number] 83905292302 No Longer Active Robbie Busby MD Active VITAMIN D3 72461 UNIT CAPS 2 CAPS PO WEEKLY CHOLECALCIFEROL 36494895059 No Longer Active Robbie Busby MD Active CYCLOBENZAPRINE HCL 10 MG TABS 1 tablet by mouth three times daily as needed for muscle spasm/pain for 10 days CYCLOBENZAPRINE HCL 40805038361 No Longer Active Robbie Busby MD Active PREDNISONE 20 MG TAB take 3 tabs daily for 3 days, 2 tabs daily for 3 days, 1 tab daily for 3 days, 1/2 tab daily for 4 days PREDNISONE 69626936017 No Longer Active Erin Garsia APRN Active CLONIDINE HCL 0.2 MG ORAL TABS 1 TAB BY MOUTH EVERY 8 HOURS 12/29 CLONIDINE HCL 38622865131 No Longer Active Erin Garsia APRN Active MECLIZINE HCL 25 MG TAB one 4 times a day as needed for dizziness MECLIZINE HCL 38661519470 No Longer Active Erin Garsia APRN Active SPIRONOLACTONE 25 MG TAB 4 tablets by mouth daily SPIRONOLACTONE 32560720618 No Longer Active Erin Garsia APRN Active LEVAQUIN 500 MG TAB 1 tablet by mouth daily for 7 days LEVOFLOXACIN 03491216649 No Longer Active Erin Garsia APRN Active BACTRIM DS 800-160 MG TAB 1 tab by mouth twice daily TRIMETHOPRIM-SULFAMETHOXAZOLE 30625051618 No Longer Active Robbie Busby MD Active HYDRALAZINE HCL 50 MG ORAL TABS TWO BY MOUTH THREE TIMES DAILY HYDRALAZINE HCL 76853271775 No Longer Active Jillina Frazell [employer] Active HYDROCODONE-ACETAMINOPHEN 5-325 MG TABS 1 tab by mouth BID prn back pain 2013 HYDROCODONE-ACETAMINOPHEN 86973932543 No Longer Active Jillina Frazell [employer] TE[employer]ER Active HYDROCHLOROTHIAZIDE TABS Take one by mouth daily HYDROCHLOROTHIAZIDE TABS 67093428386 No Longer Active Jillina Frazell [employer] TE[employer]ER Active LAMISIL 125 MG ORAL PACK 1 TAB PO DAILY TERBINAFINE HCL 54868574286 No Longer Active Jillina Frazell [employer] TE[employer]ER Active TRILEPTAL 150 MG ORAL TABS 1 TAB PO Q HS OXCARBAZEPINE 56511479195 No Longer Active Jillina Frazell [employer] TE[employer]ER Active BETADINE 10 % EXT SOLN wash with solution to treat follicultis POVIDONE-IODINE 89532467326 No Longer Active Jillina Zulemal [employer] Active NYSTATIN 178560 UNIT/ML M/T SUSP 5mL po QID x 10 days NYSTATIN 24975082747 No Longer Active Erin Garsia APRN Active PREDNISONE 20 MG TAB 1 tablet twice daily for 2 days, then 1 tablet once daily for 2 days PREDNISONE 65783370408 No Longer Active Robbie Busby MD Active CEFDINIR 300 MG ORAL CAPS Take 1 cap po bid x 10 days CEFDINIR 27180664824 No Longer Active Robbie Busby MD Active AMLODIPINE BESYLATE 10 MG TABS 1 tablet by mouth daily AMLODIPINE BESYLATE 53627097171 Active Robbie Busby MD Active CARVEDILOL 25 MG TABS 1 & 1/2 TAB po BID CARVEDILOL 03902091164 Active Robbie Busby MD Active NEXIUM 40 MG CPDR 1 cap by mouth daily ESOMEPRAZOLE MAGNESIUM 28321894921 Active Robbie Busby MD Active PROTONIX 40 MG SOLR 1 po qday for acid reflux PANTOPRAZOLE SODIUM 12935450936 No Longer Active Gali Raida Active KEFLEX 500 MG CAP 1 po TID x 10 days CEPHALEXIN 16653248500 No Longer Active Robbie Busby MD Active TOPIRAMATE 50 MG ORAL TABS take 1 tab po BID for migraines. TOPIRAMATE 99726851142 Active Robbie Busby MD Active TEMAZEPAM 15 MG ORAL CAPS 1 TAB PO Q HS TEMAZEPAM 15099703233 Active Robbie Busby MD Active ALPRAZOLAM 2 MG ORAL TABS 1 TAB PO BID ALPRAZOLAM 60173498829 Active Robbie Busby MD Active FENOFIBRATE 145 MG TABS Take one by mouth daily FENOFIBRATE 79949369214 No Longer Active Robbie Busby MD Active SPIRONOLACTONE 50 MG TABS 1 tablet by mouth twice a day SPIRONOLACTONE 94139417238 No Longer Active Robbie Busby MD Active HYDRALAZINE HCL 25 MG TABS 1 tablet by mouth tid for hypertension HYDRALAZINE HCL 01317753430 No Longer Active Robbie Busby MD Active VIIBRYD 40 MG TABS take 1 tab po qday for depression. VILAZODONE HCL 96422550740 No Longer Active Robbie Busby MD Active TERBINAFINE HCL 250 MG TABS 1 tab po qday for foot infection 2014 TERBINAFINE HCL 03960783114 No Longer Active Robbie Busby MD Active GABAPENTIN 300 MG CAPS 1 po q hs for nerve pain GABAPENTIN 63304161230 Active Robbie Busby MD Active CHERATUSSIN AC 100-10 MG/5ML ORAL SOLN 7.5 mL PO q 4-6 hrs PRN cough GUAIFENESIN-CODEINE 15614164161 No Longer Active Robbie Busby MD Active AZITHROMYCIN 250 MG ORAL TABS 2 tablets PO today---then, 1 tablet PO daily x 4 more days (and 1 optional refill) AZITHROMYCIN 10685400366 No Longer Active Robbie Busby MD Active NORVASC 10 MG TAB 1 tablet by mouth daily AMLODIPINE BESYLATE 90604285431 No Longer Active Alex ALVAREZ Active IMDUR 60 MG TAB CR take 1 tab po qday for blood pressure ISOSORBIDE MONONITRATE Active Robbie Busby MD Active ISOSORBIDE DINITRATE 30 MG TABS Take one by mouth daily ISOSORBIDE DINITRATE 48728728103 No Longer Active Robbie Busby MD Active VIIBRYD 40 MG TABS 1 TA B PO DAILY VILAZODONE HCL 21592517835 Active Robbie Busby MD Active ZITHROMAX 250 MG TAB 2 po today, then 1 po q days 2-5 AZITHROMYCIN 08935212785 No Longer Active Robbie Busby MD Active [id number] 0.3 MG/24HR PTWK apply 2 patches q week for HTN CLONIDINE HCL 41622966446 Active Robbie Busby MD Active DOXAZOSIN MESYLATE 4 MG TABS Take one by mouth daily DOXAZOSIN MESYLATE 89225321803 Active Robbie Busby MD Active TOPROL XL 200 MG [id number] Take one by mouth daily METOPROLOL SUCCINATE 21505792747 Active Robbie Busby MD Active VENLAFAXINE HCL ER 150 MG CO64L-LOI Take one by mouth daily VENLAFAXINE HCL 66651940677 Active Robbie Busby MD Active LIPITOR 40 MG TABS Take one by mouth daily ATORVASTATIN CALCIUM 78050917893 Active Robbie Busby MD Active ISOSORBIDE DINITRATE 30 MG TABS Take one by mouth daily ISOSORBIDE DINITRATE 30 MG TABS 706932 ISOSORBIDE DINITRATE Inactive NORVASC 10 MG TAB 1 tablet by mouth daily NORVASC 10 MG TAB 170909 AMLODIPINE BESYLATE Inactive AZITHROMYCIN 250 MG ORAL TABS 2 tablets PO today---then, 1 tablet PO daily x 4 more days (and 1 optional refill) AZITHROMYCIN 250 MG ORAL TABS 4195410 AZITHROMYCIN Inactive CHERATUSSIN AC 100-10 MG/5ML ORAL SOLN 7.5 mL PO q 4-6 hrs PRN cough CHERATUSSIN AC 100-10 MG/5ML ORAL SOLN 925285 GUAIFENESIN- CODEINE Inactive VIIBRYD 40 MG TABS take 1 tab po qday for depression. VIIBRYD 40 MG TABS VILAZODONE HCL Inactive HYDRALAZINE HCL 25 MG TABS 1 tablet by mouth tid for hypertension HYDRALAZINE HCL 25 MG TABS 901761 HYDRALAZINE HCL Inactive SPIRONOLACTONE 50 MG TABS 1 tablet by mouth twice a day SPIRONOLACTONE 50 MG TABS 200028 SPIRONOLACTONE Inactive FENOFIBRATE 145 MG TABS Take one by mouth daily FENOFIBRATE 145 MG TABS 536736 FENOFIBRATE Inactive PROTONIX 40 MG SOLR 1 po qday for acid reflux PROTONIX 40 MG SOLR 964687 PANTOPRAZOLE SODIUM Inactive CEFDINIR 300 MG ORAL CAPS Take 1 cap po bid x 10 days CEFDINIR 300 MG ORAL CAPS 902054 CEFDINIR Inactive PREDNISONE 20 MG TAB 1 tablet twice daily for 2 days, then 1 tablet once daily for 2 days PREDNISONE 20 MG TAB 464196 PREDNISONE Inactive NYSTATIN 671327 UNIT/ML M/T SUSP 5mL po QID x 10 days NYSTATIN 830491 UNIT/ML M/T SUSP 174415 NYSTATIN Inactive BETADINE 10 % EXT SOLN wash with solution to treat follicultis BETADINE 10 % EXT SOLN 6954763 POVIDONE-IODINE Inactive TRILEPTAL 150 MG ORAL TABS 1 TAB PO Q HS TRILEPTAL 150 MG ORAL TABS 989357 OXCARBAZEPINE Inactive LAMISIL 125 MG ORAL PACK 1 TAB PO DAILY LAMISIL 125 MG ORAL PACK TERBINAFINE HCL Inactive HYDROCHLOROTHIAZIDE TABS Take one by mouth daily HYDROCHLOROTHIAZIDE TABS HYDROCHLOROTHIAZIDE TABS Inactive HYDROCODONE-ACETAMINOPHEN 5-325 MG TABS 1 tab by mouth BID prn back pain 2013 HYDROCODONE-ACETAMINOPHEN 5-325 MG TABS 960921 HYDROCODONE -ACETAMINOPHEN Inactive HYDRALAZINE HCL 50 MG ORAL TABS TWO BY MOUTH THREE TIMES DAILY HYDRALAZINE HCL 50 MG ORAL TABS 692508 HYDRALAZINE HCL Inactive LEVAQUIN 500 MG TAB 1 tablet by mouth daily for 7 days LEVAQUIN 500 MG TAB 670138 LEVOFLOXACIN Inactive SPIRONOLACTONE 25 MG TAB 4 tablets by mouth daily SPIRONOLACTONE 25 MG TAB 688814 SPIRONOLACTONE Inactive MECLIZINE HCL 25 MG TAB one 4 times a day as needed for dizziness MECLIZINE HCL 25 MG TAB 789542 MECLIZINE HCL Inactive CLONIDINE HCL 0.2 MG ORAL TABS 1 TAB BY MOUTH EVERY 8 HOURS 12/29 CLONIDINE HCL 0.2 MG ORAL TABS 200013 CLONIDINE HCL Inactive CYCLOBENZAPRINE HCL 10 MG TABS 1 tablet by mouth three times daily as needed for muscle spasm/pain for 10 days CYCLOBENZAPRINE HCL 10 MG TABS 730983 CYCLOBENZAPRINE HCL Inactive VITAMIN D3 54565 UNIT CAPS 2 CAPS PO WEEKLY VITAMIN D3 03172 UNIT CAPS CHOLECALCIFEROL Inactive FIORICET 50-300-40 MG ORAL CAPS take 1 tab po qday prn migraines. FIORICET 50-300-40 MG ORAL CAPS 722389 [id number] Inactive FLONASE 50 MCG/ACT SUSP 1 spray each nostril twice daily for allergies and runny nose FLONASE 50 MCG/ACT SUSP 9859187 FLUTICASONE PROPIONATE Inactive LORATADINE 10 MG TABS 1 tablet by mouth daily for congestion and allergies. LORATADINE 10 MG TABS 174336 LORATADINE Inactive NITROSTAT 0.4 MG SUBL PRN NITROSTAT 0.4 MG SUBL 502959 NITROGLYCERIN Inactive ZITHROMAX 250 MG TAB 2 po today, then 1 po q days 2-5 ZITHROMAX 250 MG TAB 9106422 AZITHROMYCIN Inactive TERBINAFINE HCL 250 MG TABS 1 tab po qday for foot infection 2014 TERBINAFINE HCL 250 MG TABS 383430 TERBINAFINE HCL Inactive KEFLEX 500 MG CAP 1 po TID x 10 days KEFLEX 500 MG CAP 392791 CEPHALEXIN Inactive BACTRIM DS 800-160 MG TAB 1 tab by mouth twice daily BACTRIM DS 800-160 MG TAB 824843 TRIMETHOPRIM-SULFAMETHOXAZOLE Inactive PREDNISONE 20 MG TAB take 3 tabs daily for 3 days, 2 tabs daily for 3 days, 1 tab daily for 3 days, 1/2 tab daily for 4 days PREDNISONE 20 MG TAB 166259 PREDNISONE Inactive Advance Directives Directive Description Start [...] AUTO - Chemistry sodium, serum 142 mmol/L 458-434 6558/07/17 carbon dioxide, venous blood 28.2 mmol/L 21.0-32.0 [...] % 11.0-15.0 platelet count 185 THOUSAND/UL 10*3/mm3 346-565 0958/04/14 mean platelet volume 10.9 fL 7.5-12.5 Lab Report: LIPID PANEL, TSH/899, T4, FREE/866 - Chemistry cholesterol, serum 220 mg/dL 843-446 5039/04/14 HDL cholesterol, serum 30 mg/dL > OR=40 triglyceride, serum, fasting 466 mg/dL <150 LDL cholesterol, serum SEE NOTE mg/dL (calc) mg/dL <130 cholesterol/HDL ratio, serum 7.3 (calc) < OR=5.0 Lab Report: MICROALB/CREAT W/RATIO - Chemistry albumin/creatinine ratio, urine < 30 mg/g mg/g{creat} 0-29 Lab Report: MICROALB/CREAT W/RATIO - Lab microalbumin, urine 80 0-19 Lab Report: VITAMIN D, 25-HYDROXY/45391 - Chemistry vitamin D 25-hydroxy, serum 25 ng/mL 30-100 Office Visit: Confusion, dizziness after fall - Basic LDL target level 130 mg/dL Office Visit: Confusion, dizziness after fall - Chemistry HDL cholesterol, serum, target level 40 mg/dL triglyceride, target level 150 mg/dL cholesterol, target level 200 mg/dL Encounters Code Encounter Date Provider Facility CPT-32500 Level 3 Est. Patient 09:00:37 CDT Rober Rodríguez [facility] CPT-00102 Level 3 Est. Patient 16:07:10 CDT Robbie Busby MD [facility] CPT-61431 Level 4 Est. Patient 11:56:16 CDT Erin Garsia [facility] CPT-36339 Level 3 Est. Patient 17:48:02 CDT Robbie Busby MD [facility] CPT-22817 Level 4 Est. Patient 12:00:49 DATA ASSISTANT Rober Rodríguez [facility] CPT-49095 Level 3 Est. Patient 09:16:37 CDT Robbie Busby MD [facility] CPT-00176 Level 3 Est. Patient 19:38:43 CDT Robbie Busby MD [facility] CPT-61006 Level 3 Est. Patient 11:53:38 CDT Robbie Busby MD [facility] CPT-08033 Level 4 Est. Patient 12:52:22 CDT Rober Rodríguez [facility] CPT-51815 Level 4 Est. Patient 22:55:17 CDT Robbie Busby MD [facility] CPT-81295 Level 3 Est. Patient 12:38:24 CDT Desmond Diaz DO [facility] CPT-07924 Level 4 Est. Patient 11:25:03 DATA ASSISTANT Robbie Busby MD [facility] CPT-17186 Level 4 Est. Patient 14:50:10 CDT Robbie Busby MD [facility] CPT-32717 Level 4 Est. Patient 23:30:43 CDT Robbie Busby MD [facility] CPT-57819 Level 4 Est. Patient 10:30:43 CDT Robbie Busby MD [facility] CPT-29940 Level 3 Est. Patient 17:08:12 CDT Alex ALVAREZ [facility] CPT-07016 Level 4 Est. Patient 17:51:38 CDT Robbie Busby MD [facility] CPT-68543 Level 4 Est. Patient 14:00:21 CDT Robbie Busby MD [facility] CPT-75795 Level 4 Est. Patient 12:46:48 CDT Robbie Busby MD [facility] CPT-45297 Level 4 Est. Patient 13:34:33 CDT Robbie Busby MD [facility] CPT-30890 Level 4 Est. Patient 16:58:28 CDT Robbie Busby MD [facility] CPT-59060 Level 3 Est. Patient 19:36:53 CDT Alex Shaw [facility] CPT-29160 Level 3 Est. Patient 12:58:15 CDT Robbie Busby MD [facility] Procedures Code Procedure Name Date Entry Date Standard Description CPT-69714 Venipuncture Draw Fee 14:39:06 CDT CPT-87555 Ribs unilateral 2V - XRAY USE ONLY 12:10:11 CDT CPT-96466 First Vx - Ix admin for Medicare patients 16:32:53 CDT CPT-99133 Boostrix Intramuscular Suspension 5-2.5-18.5 16:32:53 CDT CPT-17434 TB Skin Test 11:42:28 CDT CPT-85933 Tdap 7yrs or > 11:42:28 CDT CPT-J0696 Rocephin 1000 mg (Ceftriaxone) 17:43:43 DATA ASSISTANT CPT-J1040 Depo Medrol 80 mg (Methyl Prednisolone Acetate) 17:43: 43 DATA ASSISTANT CPT-J1100 Decadron 8mg (Dexamethasone) 17:43:42 DATA ASSISTANT CPT-35809 Abx/Therapy Injection 17:43:42 DATA ASSISTANT CPT-82300 Abx/Therapy Injection 17:43:42 DATA ASSISTANT CPT-J1040 Depo Medrol 80 mg (Methyl Prednisolone Acetate) 09:43: 34 DATA ASSISTANT CPT-J1100 Decadron 8mg (Dexamethasone) 09:43:34 DATA ASSISTANT CPT-J0696 Rocephin 1gm Inj Solr 09:43:34 DATA ASSISTANT CPT-64909 Wound Culture - LAB USE ONLY 14:00:21 CDT CPT-I/D I/D Abscess 09:16:37 CDT CPT-89019 Venipuncture Draw Fee 15:20:23 CDT CPT-07600 Microalbumin - LAB USE ONLY 16:02:19 CDT CPT-06212 CBC - LAB USE ONLY 16:02:19 CDT CPT-17398 Venipuncture Draw Fee 16:02:19 CDT CPT-G0438 Initial Annual Wellness Exam 08:10:28 CDT CPT-58996 Venipuncture Draw Fee 13:07:17 CDT CPT-G0008 Administration of Influenza Virus Vaccine 16:09:59 CDT CPT-91543 Fluzone Quadrivalent Intramuscular Suspension 0.5 ML 16: 09:59 CDT CPT-41024 Spec Collection and Handling Fee 15:05:50 CDT
--- OUTSIDE RECORDS SUMMARY | 2018-04-18 12:24 | XMS REPORT | Clinical Summary ---
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 Other malignant secondary hypertension Tachycardia 785.0 Active [...] by mouth daily for 7 days LEVOFLOXACIN 33754400812 Active Erin Garsia APRN Active BACTRIM DS 800-160 MG TAB 1 tab by mouth twice daily TRIMETHOPRIM-SULFAMETHOXAZOLE 13533697701 No Longer Active Robbie Busby MD Active SPIRONOLACTONE 25 MG TAB 4 tablets by mouth daily SPIRONOLACTONE 18734756281 Active Robbie Busby MD Active HYDRALAZINE HCL 50 MG ORAL TABS TWO BY MOUTH THREE TIMES DAILY HYDRALAZINE HCL 66567043688 No Longer Active Andrellina Zulemal EMBEDDED CASE MANAGER Active HYDROCODONE-ACETAMINOPHEN 5-325 MG TABS 1 tab by mouth BID prn back pain 2013 HYDROCODONE-ACETAMINOPHEN 70565810901 No Longer Active Jillina Frazell EMBEDDED CASE MANAGER Active HYDROCHLOROTHIAZIDE TABS Take one by mouth daily HYDROCHLOROTHIAZIDE TABS 22453923447 No Longer Active Jillina Frazell EMBEDDED CASE MANAGER Active LAMISIL 125 MG ORAL PACK 1 TAB PO DAILY TERBINAFINE HCL 13452959349 No Longer Active Jillina Frazell EMBEDDED CASE MANAGER Active TRILEPTAL 150 MG ORAL TABS 1 TAB PO Q HS OXCARBAZEPINE 05798442804 No Longer Active Jillina Frazell EMBEDDED CASE MANAGER Active BETADINE 10 % EXT SOLN wash with solution to treat follicultis POVIDONE-IODINE 68866300989 No Longer Active Jillina Frazell EMBEDDED CASE MANAGER Active NYSTATIN 154084 UNIT/ML M/T SUSP 5mL po QID x 10 days NYSTATIN 53455143971 No Longer Active Erin Garsia APRN Active PREDNISONE 20 MG TAB 1 tablet twice daily for 2 days, then 1 tablet once daily for 2 days PREDNISONE 08981132707 No Longer Active Robbie Busby MD Active CEFDINIR 300 MG ORAL CAPS Take 1 cap po bid x 10 days CEFDINIR 35123891149 No Longer Active Robbie Busby MD Active AMLODIPINE BESYLATE 10 MG TABS 1 tablet by mouth daily AMLODIPINE BESYLATE 09830206106 Active Robbie Busby MD Active CARVEDILOL 25 MG TABS 1 & 1/2 TAB po BID CARVEDILOL 10423923109 Active Erin Garsia APRN Active VITAMIN D3 36523 UNIT CAPS 2 CAPS PO WEEKLY CHOLECALCIFEROL 14597601625 Active Erin Garsia APRN Active NEXIUM 40 MG CPDR 1 cap by mouth daily ESOMEPRAZOLE MAGNESIUM 25936796912 Active Robbie Busby MD Active PROTONIX 40 MG SOLR 1 po qday for acid reflux PANTOPRAZOLE SODIUM 57557115527 No Longer Active Gali Raida Active KEFLEX 500 MG CAP 1 po TID x 10 days CEPHALEXIN 22145981181 No Longer Active Robbie Busby MD Active FIORICET 50-300-40 MG ORAL CAPS take 1 tab po qday prn migraines. [id number] 62345902682 Active Robbie Busby MD Active TOPIRAMATE 50 MG ORAL TABS take 1 tab po BID for migraines. TOPIRAMATE 73839254132 Active Robbie Busby MD Active MECLIZINE HCL 25 MG TAB one 4 times a day as needed for dizziness MECLIZINE HCL 69067782267 Active Robbie Busby MD Active TEMAZEPAM 15 MG ORAL CAPS 1 TAB PO Q HS TEMAZEPAM 74484933181 Active Robbie Busby MD Active ALPRAZOLAM 2 MG ORAL TABS 1 TAB PO BID ALPRAZOLAM 99694888621 Active Robbie Busby MD Active FENOFIBRATE 145 MG TABS Take one by mouth daily FENOFIBRATE 55415210924 No Longer Active Robbie Busby MD Active SPIRONOLACTONE 50 MG TABS 1 tablet by mouth twice a day SPIRONOLACTONE 63810184215 No Longer Active Robbie Busby MD Active HYDRALAZINE HCL 25 MG TABS 1 tablet by mouth tid for hypertension HYDRALAZINE HCL 20698625351 No Longer Active Robbie Busby MD Active VIIBRYD 40 MG TABS take 1 tab po qday for depression. VILAZODONE HCL 28858782192 No Longer Active Robbie Busby MD Active TERBINAFINE HCL 250 MG TABS 1 tab po qday for foot infection 2014 TERBINAFINE HCL 46007061854 No Longer Active Robbie Busby MD Active GABAPENTIN 300 MG CAPS 1 po q hs for nerve pain GABAPENTIN 58809784185 Active Robbie Busby MD Active FLONASE 50 MCG/ACT SUSP 1 spray each nostril twice daily for allergies and runny nose FLUTICASONE PROPIONATE 70035491307 Active Robbie Busby MD Active CHERATUSSIN AC 100-10 MG/5ML ORAL SOLN 7.5 mL PO q 4-6 hrs PRN cough GUAIFENESIN-CODEINE 22153622644 No Longer Active Robbie Busby MD Active AZITHROMYCIN 250 MG ORAL TABS 2 tablets PO today---then, 1 tablet PO daily x 4 more days (and 1 optional refill) AZITHROMYCIN 94468967065 No Longer Active Robbie Busby MD Active CLONIDINE HCL 0.2 MG ORAL TABS 1 TAB BY MOUTH EVERY 8 HOURS CLONIDINE HCL 16087934326 Active Erin Garsia APRN Active NORVASC 10 MG TAB 1 tablet by mouth daily AMLODIPINE BESYLATE 62232627317 No Longer Active Alex ALVAREZ Active IMDUR 60 MG TAB CR take 1 tab po qday for blood pressure ISOSORBIDE MONONITRATE Active Robbie Busby MD Active ISOSORBIDE DINITRATE 30 MG TABS Take one by mouth daily ISOSORBIDE DINITRATE 82737417051 No Longer Active Robbie Busby MD Active VIIBRYD 40 MG TABS 1 TA B PO DAILY VILAZODONE HCL 12050021105 Active Robbie Busby MD Active LORATADINE 10 MG TABS 1 tablet by mouth daily for congestion and allergies. LORATADINE 50493476717 Active Robbie Busby MD Active ZITHROMAX 250 MG TAB 2 po today, then 1 po q days 2-5 AZITHROMYCIN 68000623530 No Longer Active Robbie Busby MD Active NELSWRGD-IVR-9 0.3 MG/24HR PTWK apply 2 patches q week for HTN CLONIDINE HCL 47825983161 Active Robbie Busby MD Active NITROSTAT 0.4 MG SUBL PRN NITROGLYCERIN 24868718024 Active Robbie Busby MD Active DOXAZOSIN MESYLATE 4 MG TABS Take one by mouth daily DOXAZOSIN MESYLATE 53933203934 Active Erin Garsia APRN Active TOPROL XL 200 MG [id number] Take one by mouth daily METOPROLOL SUCCINATE 34849506023 Active Robbie Busby MD Active VENLAFAXINE HCL ER 150 MG [id number] Take one by mouth daily VENLAFAXINE HCL 64440808203 Active Robbie Busby MD Active LIPITOR 40 MG TABS Take one by mouth daily ATORVASTATIN CALCIUM 97976893728 Active Robbie Busby MD Active ISOSORBIDE DINITRATE 30 MG TABS Take one by mouth daily ISOSORBIDE DINITRATE 30 MG TABS 426814 ISOSORBIDE DINITRATE Inactive NORVASC 10 MG TAB 1 tablet by mouth daily NORVASC 10 MG TAB 806786 AMLODIPINE BESYLATE Inactive AZITHROMYCIN 250 MG ORAL TABS 2 tablets PO today---then, 1 tablet PO daily x 4 more days (and 1 optional refill) AZITHROMYCIN 250 MG ORAL TABS 5121386 AZITHROMYCIN Inactive CHERATUSSIN AC 100-10 MG/5ML ORAL SOLN 7.5 mL PO q 4-6 hrs PRN cough CHERATUSSIN AC 100-10 MG/5ML ORAL SOLN 436739 GUAIFENESIN- CODEINE Inactive VIIBRYD 40 MG TABS take 1 tab po qday for depression. VIIBRYD 40 MG TABS VILAZODONE HCL Inactive HYDRALAZINE HCL 25 MG TABS 1 tablet by mouth tid for hypertension HYDRALAZINE HCL 25 MG TABS 096539 HYDRALAZINE HCL Inactive SPIRONOLACTONE 50 MG TABS 1 tablet by mouth twice a day SPIRONOLACTONE 50 MG TABS 047043 SPIRONOLACTONE Inactive FENOFIBRATE 145 MG TABS Take one by mouth daily FENOFIBRATE 145 MG TABS 815974 FENOFIBRATE Inactive PROTONIX 40 MG SOLR 1 po qday for acid reflux PROTONIX 40 MG SOLR 159047 PANTOPRAZOLE SODIUM Inactive CEFDINIR 300 MG ORAL CAPS Take 1 cap po bid x 10 days CEFDINIR 300 MG ORAL CAPS 470115 CEFDINIR Inactive PREDNISONE 20 MG TAB 1 tablet twice daily for 2 days, then 1 tablet once daily for 2 days PREDNISONE 20 MG TAB 106913 PREDNISONE Inactive NYSTATIN 375646 UNIT/ML M/T SUSP 5mL po QID x 10 days NYSTATIN 699726 UNIT/ML M/T SUSP 595009 NYSTATIN Inactive BETADINE 10 % EXT SOLN wash with solution to treat follicultis BETADINE 10 % EXT SOLN 7280829 POVIDONE-IODINE Inactive TRILEPTAL 150 MG ORAL TABS 1 TAB PO Q HS TRILEPTAL 150 MG ORAL TABS 417468 OXCARBAZEPINE Inactive LAMISIL 125 MG ORAL PACK 1 TAB PO DAILY LAMISIL 125 MG ORAL PACK TERBINAFINE HCL Inactive HYDROCHLOROTHIAZIDE TABS Take one by mouth daily HYDROCHLOROTHIAZIDE TABS HYDROCHLOROTHIAZIDE TABS Inactive HYDROCODONE-ACETAMINOPHEN 5-325 MG TABS 1 tab by mouth BID prn back pain 2013 HYDROCODONE-ACETAMINOPHEN 5-325 MG TABS 337428 HYDROCODONE -ACETAMINOPHEN Inactive HYDRALAZINE HCL 50 MG ORAL TABS TWO BY MOUTH THREE TIMES DAILY HYDRALAZINE HCL 50 MG ORAL TABS 061755 HYDRALAZINE HCL Inactive ZITHROMAX 250 MG TAB 2 po today, then 1 po q days 2-5 ZITHROMAX 250 MG TAB 4595377 AZITHROMYCIN Inactive TERBINAFINE HCL 250 MG TABS 1 tab po qday for foot infection 2014 TERBINAFINE HCL 250 MG TABS 923188 TERBINAFINE HCL Inactive KEFLEX 500 MG CAP 1 po TID x 10 days KEFLEX 500 MG CAP 261339 CEPHALEXIN Inactive BACTRIM DS 800-160 MG TAB 1 tab by mouth twice daily BACTRIM DS 800-160 MG TAB 163584 TRIMETHOPRIM-SULFAMETHOXAZOLE Inactive Advance Directives Directive Description Start [...] Acid - Chemistry sodium, serum 139 mmol/L 454-354 7303/04/22 carbon dioxide, venous blood 29.4 mmol/L 21.0-32.0 [...] to Follow Negative Lab Report: VITAMIN D, 25-HYDROXY/82434 - Chemistry vitamin D 25-hydroxy, serum 23 ng/mL 30-100 Encounters Code Encounter Date Provider Facility CPT-81962 Level 4 Est. Patient 12:00:49 COLLECTION AGENT Rober Rodríguez APRN [facility] CPT-67713 Level 3 Est. Patient 09:16:37 CDT Robbie Busby MD [facility] CPT-34080 Level 3 Est. Patient 19:38:43 CDT Robbie Busby MD [facility] CPT-30611 Level 3 Est. Patient 11:53:38 CDT Robbie Busby MD [facility]-11118 Level 4 Est. Patient 12:52:22 CDT Rober Rodríguez APRN [facility] CPT-39759 Level 4 Est. Patient 22:55:17 CDT Robbie Busby MD [facility]-97068 Level 3 Est. Patient 12:38:24 CDT Desmond Diaz DO [facility] CPT-13357 Level 4 Est. Patient 11:25:03 COLLECTION AGENT Robbie Busby MD [facility] CPT-60398 Level 4 Est. Patient 14:50:10 CDT Robbie Busby MD [facility] CPT-49358 Level 4 Est. Patient 23:30:43 CDT Robbie Busby MD [facility] CPT-07128 Level 4 Est. Patient 10:30:43 CDT Robbie Busby MD [facility] CPT-92636 Level 3 Est. Patient 17:08:12 CDT Alex ALVAREZ [facility] CPT-48050 Level 4 Est. Patient 17:51:38 CDT Robbie Busby MD [facility] CPT-26264 Level 4 Est. Patient 14:00:21 CDT Robbie Busby MD [facility] CPT-76964 Level 4 Est. Patient 12:46:48 CDT Robbie Busby MD [facility]-87315 Level 4 Est. Patient 13:34:33 CDT Robbie Busby MD [facility] CPT-23383 Level 4 Est. Patient 16:58:28 CDT Robbie Busby MD [facility] CPT-20963 Level 3 Est. Patient 19:36:53 CDT Alex ALVAREZ [facility] CPT-50372 Level 3 Est. Patient 12:58:15 CDT Robbie Busby MD [facility] Procedures Code Procedure Name Date Entry Date Standard Description CPT-J0696 Rocephin 1000 mg (Ceftriaxone) 17:43:43 COLLECTION AGENT CPT-J1040 Depo Medrol 80 mg (Methyl Prednisolone Acetate) 17:43: 43 COLLECTION AGENT CPT-J1100 Decadron 8mg (Dexamethasone) 17:43:42 COLLECTION AGENT CPT-81609 Abx/Therapy Injection 17:43:42 COLLECTION AGENT CPT-85088 Abx/Therapy Injection 17:43:42 COLLECTION AGENT CPT-J1040 Depo Medrol 80 mg (Methyl Prednisolone Acetate) 09:43: 34 COLLECTION AGENT CPT-J1100 Decadron 8mg (Dexamethasone) 09:43:34 COLLECTION AGENT CPT-J0696 Rocephin 1gm Inj Solr 09:43:34 COLLECTION AGENT CPT-54891 Wound Culture - LAB USE ONLY 14:00:21 CDT CPT-I/D I/D Abscess 09:16:37 CDT CPT-68492 Venipuncture Draw Fee 15:20:23 CDT CPT-42408 Microalbumin - LAB USE ONLY 16:02:19 CDT CPT-33405 CBC - LAB USE ONLY 16:02:19 CDT CPT-00328 Venipuncture Draw Fee 16:02:19 CDT CPT-G0438 Initial Annual Wellness Exam 08:10:28 CDT CPT-83167 Venipuncture Draw Fee 13:07:17 CDT CPT-G0008 Administration of Influenza Virus Vaccine 16:09:59 CDT CPT-16231 Fluzone Quadrivalent Intramuscular Suspension 0.5 ML 16: 09:59 CDT CPT-13325 Spec Collection and Handling Fee 15:05:50 CDT
--- OUTSIDE RECORDS SUMMARY | 2018-04-18 12:24 | XMS REPORT | Clinical Summary ---
Author Author Admin, Nicolas Organization [employer] Address Unknown Phone Unavailable Allergies, Adverse [...] cap po bid x 10 days CEFDINIR 52837401389 Active Jackie Junior MA Active PREDNISONE 20 MG TAB 1 tablet twice daily for 2 days, then 1 tablet once daily for 2 days PREDNISONE 29370601809 Active Desmond Diaz DO Active NEXIUM 40 MG CPDR 1 cap by mouth daily ESOMEPRAZOLE MAGNESIUM 16205045294 Active Gali Negro Active PROTONIX 40 MG SOLR 1 po qday for acid reflux PANTOPRAZOLE SODIUM 89484150973 No Longer Active Gali Negro Active BETADINE 10 % EXT SOLN wash with solution to treat follicultis POVIDONE-IODINE 43310663793 Active Robbie Busby MD Active KEFLEX 500 MG CAP 1 po TID x 10 days CEPHALEXIN 44807514949 No Longer Active Robbie Busby MD Active FIORICET 50-300-40 MG ORAL CAPS take 1 tab po qday prn migraines. [id number] 96648718033 Active Robbie Busby MD Active TOPIRAMATE 50 MG ORAL TABS take 1 tab po BID for migraines. TOPIRAMATE 40837770517 Active Robbie Busby MD Active HYDRALAZINE HCL 50 MG ORAL TABS TWO BY MOUTH THREE TIMES DAILY HYDRALAZINE HCL 74512594640 Active Robbie Busby MD Active MECLIZINE HCL 25 MG TAB one 4 times a day as needed for dizziness MECLIZINE HCL 64931556661 Active Robbie Busby MD Active TRILEPTAL 150 MG ORAL TABS 1 TAB PO Q HS OXCARBAZEPINE 20137344975 Active Robbie Busby MD Active TEMAZEPAM 15 MG ORAL CAPS 1 TAB PO Q HS TEMAZEPAM 93601805785 Active Robbie Busby MD Active ALPRAZOLAM 2 MG ORAL TABS 1 TAB PO BID ALPRAZOLAM 87487249549 Active Robbie Busby MD Active FENOFIBRATE 145 MG TABS Take one by mouth daily FENOFIBRATE 79303034856 No Longer Active Robbie Busby MD Active LAMISIL 125 MG ORAL PACK 1 TAB PO DAILY TERBINAFINE HCL 16039939387 Active Robbie Busby MD Active SPIRONOLACTONE 50 MG TABS 1 tablet by mouth twice a day SPIRONOLACTONE 80938350599 No Longer Active Robbie Busby MD Active HYDRALAZINE HCL 25 MG TABS 1 tablet by mouth tid for hypertension HYDRALAZINE HCL 12279209978 No Longer Active Robbie Busby MD Active VIIBRYD 40 MG TABS take 1 tab po qday for depression. VILAZODONE HCL 38181904060 No Longer Active Robbie Busby MD Active TERBINAFINE HCL 250 MG TABS 1 tab po qday for foot infection 2014 TERBINAFINE HCL 07927534061 No Longer Active Robbie Busby MD Active GABAPENTIN 300 MG CAPS 1 po q hs for nerve pain GABAPENTIN 85199305837 Active Erin Garsia [employer] Active FLONASE 50 MCG/ACT SUSP 1 spray each nostril twice daily for allergies and runny nose FLUTICASONE PROPIONATE 82497378683 Active Robbie Busby MD Active CHERATUSSIN AC 100-10 MG/5ML ORAL SOLN 7.5 mL PO q 4-6 hrs PRN cough GUAIFENESIN-CODEINE 57760325499 No Longer Active Robbie Busby MD Active AZITHROMYCIN 250 MG ORAL TABS 2 tablets PO today---then, 1 tablet PO daily x 4 more days (and 1 optional refill) AZITHROMYCIN 65959630159 No Longer Active Robbie Busby MD Active CLONIDINE HCL 0.2 MG ORAL TABS 1 TAB BY MOUTH EVERY 8 HOURS CLONIDINE HCL 83545380945 Active Robbie Busby MD Active HYDROCHLOROTHIAZIDE TABS Take one by mouth daily HYDROCHLOROTHIAZIDE TABS 89833859683 Active Alex ALVAREZ Active NORVASC 10 MG TAB 1 tablet by mouth daily AMLODIPINE BESYLATE 71408224719 No Longer Active Alex ALVAREZ Active IMDUR 60 MG TAB CR take 1 tab po qday for blood pressure ISOSORBIDE MONONITRATE Active Robbie Busby MD Active ISOSORBIDE DINITRATE 30 MG TABS Take one by mouth daily ISOSORBIDE DINITRATE 81619290376 No Longer Active Robbie Busby MD Active VIIBRYD 40 MG TABS 1 TA B PO DAILY VILAZODONE HCL 18822721376 Active Robbie Busby MD Active LORATADINE 10 MG TABS 1 tablet by mouth daily for congestion and allergies. LORATADINE 87138033004 Active Robbie Busby MD Active ZITHROMAX 250 MG TAB 2 po today, then 1 po q days 2-5 AZITHROMYCIN 36875472465 No Longer Active Robbie Busby MD Active HYDROCODONE-ACETAMINOPHEN 5-325 MG TABS 1 tab by mouth BID prn back pain 2013 HYDROCODONE-ACETAMINOPHEN 11385633840 Active Robbie Busby MD Active DOBCNZEJ-LQK-5 0.3 MG/24HR PTWK apply 2 patches q week for HTN CLONIDINE HCL 04107393344 Active Robbie Busby MD Active NITROSTAT 0.4 MG SUBL PRN NITROGLYCERIN 26592525604 Active Robbie Busby MD Active DOXAZOSIN MESYLATE 4 MG TABS Take one by mouth daily DOXAZOSIN MESYLATE 19117378685 Active Robbie Busby MD Active TOPROL XL 200 MG [id number]-CJA Take one by mouth daily METOPROLOL SUCCINATE 58429846782 Active Robbie Busby MD Active VENLAFAXINE HCL ER 150 MG CI74V-AXE Take one by mouth daily VENLAFAXINE HCL 92915509572 Active Robbie Busby MD Active LIPITOR 40 MG TABS Take one by mouth daily ATORVASTATIN CALCIUM 19927369425 Active Robbie Busby MD Active ISOSORBIDE DINITRATE 30 MG TABS Take one by mouth daily ISOSORBIDE DINITRATE 30 MG TABS 403262 ISOSORBIDE DINITRATE Inactive NORVASC 10 MG TAB 1 tablet by mouth daily NORVASC 10 MG TAB 211105 AMLODIPINE BESYLATE Inactive AZITHROMYCIN 250 MG ORAL TABS 2 tablets PO today---then, 1 tablet PO daily x 4 more days (and 1 optional refill) AZITHROMYCIN 250 MG ORAL TABS 0495213 AZITHROMYCIN Inactive CHERATUSSIN AC 100-10 MG/5ML ORAL SOLN 7.5 mL PO q 4-6 hrs PRN cough CHERATUSSIN AC 100-10 MG/5ML ORAL SOLN 984497 GUAIFENESIN- CODEINE Inactive VIIBRYD 40 MG TABS take 1 tab po qday for depression. VIIBRYD 40 MG TABS VILAZODONE HCL Inactive HYDRALAZINE HCL 25 MG TABS 1 tablet by mouth tid for hypertension HYDRALAZINE HCL 25 MG TABS 556823 HYDRALAZINE HCL Inactive SPIRONOLACTONE 50 MG TABS 1 tablet by mouth twice a day SPIRONOLACTONE 50 MG TABS 286422 SPIRONOLACTONE Inactive FENOFIBRATE 145 MG TABS Take one by mouth daily FENOFIBRATE 145 MG TABS 248860 FENOFIBRATE Inactive PROTONIX 40 MG SOLR 1 po qday for acid reflux PROTONIX 40 MG SOLR PANTOPRAZOLE SODIUM Inactive ZITHROMAX 250 MG TAB 2 po today, then 1 po q days 2-5 ZITHROMAX 250 MG TAB 6122703 AZITHROMYCIN Inactive TERBINAFINE HCL 250 MG TABS 1 tab po qday for foot infection 2014 TERBINAFINE HCL 250 MG TABS 465321 TERBINAFINE HCL Inactive KEFLEX 500 MG CAP 1 po TID x 10 days KEFLEX 500 MG CAP 187026 CEPHALEXIN Inactive Vital Signs Date Name Value [...] Acid - Chemistry sodium, serum 139 mmol/L 710-777 6614/04/22 carbon dioxide, venous blood 29.4 mmol/L 21.0-32.0 [...] PANEL - Chemistry cholesterol, serum 211 mg/dL 414-043 0902/08/31 triglyceride, serum, fasting 429 mg/dL 30-200 HDL [...] Negative Encounters Code Encounter Date Provider Facility CPT-24634 Level 3 Est. Patient 12:38:24 CDT Desmond Diaz DO [facility] CPT-15602 Level 4 Est. 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 Patient 14:50:10 CDT Robbie Busby MD [facility] CPT-15473 Level 4 Est. Patient 23:30:43 CDT Robbie Busby MD [facility] CPT-30067 Level 4 Est. Patient 10:30:43 CDT Robbie Busby MD [facility] CPT-10567 Level 3 Est. Patient 17:08:12 CDT Alex ALVAREZ [facility] CPT-41909 Level 4 Est. Patient 17:51:38 CDT Robbie Busby MD [facility] CPT-54602 Level 4 Est. Patient 14:00:21 CDT Robbie Busby MD [facility] CPT-92627 Level 4 Est. Patient 12:46:48 CDT Robbie Busby MD [facility] CPT-58863 Level 4 Est. Patient 13:34:33 CDT Robbie Busby MD [facility] CPT-20427 Level 4 Est. Patient 16:58:28 CDT Robbie Busby MD [facility] CPT-96460 Level 3 Est. Patient 19:36:53 CDT Alex ALVAREZ [facility] CPT-58578 Level 3 Est. Patient 12:58:15 CDT Robbie Busby MD [facility] Procedures Code Procedure Name Date Entry Date Standard Description CPT-86850 Venipuncture Draw Fee 13:07:17 CDT CPT-G0008 Administration of Influenza Virus Vaccine 16:09:59 CDT CPT-48870 Fluzone Quadrivalent Intramuscular Suspension 0.5 ML 16: 09:59 CDT CPT-33738 Spec Collection and Handling Fee 15:05:50 CDT
--- OUTSIDE RECORDS SUMMARY | 2018-04-18 12:25 | XMS REPORT | Clinical Summary ---
Author Author Admin, Nicolas Organization [facility] Address Unknown Phone Unavailable Allergies, Adverse [...] unspecified sites URI 465.9 Active Rober Rodríguez [employer] Acute upper respiratory infections of unspecified site Hypertension 401.9 Active Rober Rodríguez [employer]EL[employer] Unspecified essential hypertension Sinusitis - acute 461.9 [...] facility Rib pain, right sided 786.50 Active Robbei Busby MD Unspecified chest pain Vitamin D [...] Status Provider Patient Instruction GUAIFENESIN 600 MG [id number] 1 tab po q am GUAIFENESIN 58565048900 No Longer Active Robbie Busby MD Active DIVALPROEX SODIUM ER 500 MG ORAL TABLET EXTENDED RELEASE 24 HOUR Once daily DIVALPROEX SODIUM 17166990819 Active Robbie Busby MD Active DEPO-TESTOSTERONE 200 MG/ML IM SOLN 1 IM Injections every 2 weeks for low testosterone TESTOSTERONE CYPIONATE 92229885250 Active Zulema Blank LPN Active CYCLOBENZAPRINE HCL 10 MG ORAL TABS 1 po TID PRN muscle spasm/pain for 10 days CYCLOBENZAPRINE HCL 18815549047 Active JONATHAN Moncada Active FLUTICASONE PROPIONATE 50 MCG/ACT SUSP 2 sprays per nostril bid for 1 week, then 1 spray bid FLUTICASONE PROPIONATE 26480612741 Active Jillina Anne [employer]EL[employer] Active HYDRALAZINE HCL 25 MG ORAL TABS Take 1 tab BID. HYDRALAZINE HCL 72459415983 Active Agnieszkaina Anne [employer] DEVELOPER Active VITAMIN D3 82568 UNIT ORAL TABS 2 po weekly CHOLECALCIFEROL 39831495790 Active Robbie Busby MD Active OXYCODONE HCL ER 10 MG ORAL T12A 1 tab po 3 times qd. OXYCODONE HCL 39069830428 Active Robbie Busby MD Active NITROSTAT 0.4 MG SUBL PRN NITROGLYCERIN 55242853691 No Longer Active Robbie Busby MD Active LORATADINE 10 MG TABS 1 tablet by mouth daily for congestion and allergies. LORATADINE 07481352459 No Longer Active Robbie Busby MD Active FLONASE 50 MCG/ACT SUSP 1 spray each nostril twice daily for allergies and runny nose FLUTICASONE PROPIONATE 73477193277 No Longer Active Robbie Busby MD Active FIORICET 50-300-40 MG ORAL CAPS take 1 tab po qday prn migraines. [id number] 43895817406 No Longer Active Robbie Busby MD Active VITAMIN D3 98450 UNIT CAPS 2 CAPS PO WEEKLY CHOLECALCIFEROL 74307449491 No Longer Active Robbie Busby MD Active CYCLOBENZAPRINE HCL 10 MG TABS 1 tablet by mouth three times daily as needed for muscle spasm/pain for 10 days CYCLOBENZAPRINE HCL 08425392248 No Longer Active Robbie Busby MD Active PREDNISONE 20 MG TAB take 3 tabs daily for 3 days, 2 tabs daily for 3 days, 1 tab daily for 3 days, 1/2 tab daily for 4 days PREDNISONE 30201049459 No Longer Active Erin Garsia APRN Active CLONIDINE HCL 0.2 MG ORAL TABS 1 TAB BY MOUTH EVERY 8 HOURS 12/29 CLONIDINE HCL 85326564693 No Longer Active Erin Garsia APRN Active MECLIZINE HCL 25 MG TAB one 4 times a day as needed for dizziness MECLIZINE HCL 99928584648 No Longer Active Erin Garsia APRN Active SPIRONOLACTONE 25 MG TAB 4 tablets by mouth daily SPIRONOLACTONE 45139982302 No Longer Active Erin Garsia APRN Active LEVAQUIN 500 MG TAB 1 tablet by mouth daily for 7 days LEVOFLOXACIN 57722644617 No Longer Active Erin Garsia APRN Active BACTRIM DS 800-160 MG TAB 1 tab by mouth twice daily TRIMETHOPRIM-SULFAMETHOXAZOLE 09851942163 No Longer Active Robbie Busby MD Active HYDRALAZINE HCL 50 MG ORAL TABS TWO BY MOUTH THREE TIMES DAILY HYDRALAZINE HCL 37941815372 No Longer Active Jillld Rodríguez APRN Active HYDROCODONE-ACETAMINOPHEN 5-325 MG TABS 1 tab by mouth BID prn back pain 2013 HYDROCODONE-ACETAMINOPHEN 46228273530 No Longer Active Jillina Frakierstenl [employer] DEVELOPER Active HYDROCHLOROTHIAZIDE TABS Take one by mouth daily HYDROCHLOROTHIAZIDE TABS 52143956060 No Longer Active Jillina Frazell [employer]ASE DEVELOPER Active LAMISIL 125 MG ORAL PACK 1 TAB PO DAILY TERBINAFINE HCL 93387668384 No Longer Active Jillina Frazell [employer] DEVELOPER Active TRILEPTAL 150 MG ORAL TABS 1 TAB PO Q HS OXCARBAZEPINE 10556869574 No Longer Active Jillina Frakierstenl [employer] DEVELOPER Active BETADINE 10 % EXT SOLN wash with solution to treat follicultis POVIDONE-IODINE 85264522627 No Longer Active Rober Rodríguez APRN Active NYSTATIN 092341 UNIT/ML M/T SUSP 5mL po QID x 10 days NYSTATIN 71188258128 No Longer Active Erin Garsia APRN Active PREDNISONE 20 MG TAB 1 tablet twice daily for 2 days, then 1 tablet once daily for 2 days PREDNISONE 46385869280 No Longer Active Robbie Busby MD Active CEFDINIR 300 MG ORAL CAPS Take 1 cap po bid x 10 days CEFDINIR 02651082355 No Longer Active Robbie Busby MD Active AMLODIPINE BESYLATE 10 MG TABS 1 tablet by mouth daily AMLODIPINE BESYLATE 14702555673 Active Robbie Busby MD Active CARVEDILOL 25 MG TABS 1 & 1/2 TAB po BID CARVEDILOL 91940600478 Active Robbie Busby MD Active NEXIUM 40 MG CPDR 1 cap by mouth daily ESOMEPRAZOLE MAGNESIUM 08294942924 Active Robbie Busby MD Active PROTONIX 40 MG SOLR 1 po qday for acid reflux PANTOPRAZOLE SODIUM 97860637789 No Longer Active Gali Raida Active KEFLEX 500 MG CAP 1 po TID x 10 days CEPHALEXIN 39510130266 No Longer Active Robbie Busby MD Active TOPIRAMATE 50 MG ORAL TABS take 1 tab po BID for migraines. TOPIRAMATE 67415954701 Active Robbie Busby MD Active TEMAZEPAM 15 MG ORAL CAPS 1 TAB PO Q HS TEMAZEPAM 29137493354 Active Robbie Busby MD Active ALPRAZOLAM 2 MG ORAL TABS 1 TAB PO BID ALPRAZOLAM 60681373977 Active Robbie Busby MD Active FENOFIBRATE 145 MG TABS Take one by mouth daily FENOFIBRATE 64665085564 No Longer Active Robbie Busby MD Active SPIRONOLACTONE 50 MG TABS 1 tablet by mouth twice a day SPIRONOLACTONE 79787740569 No Longer Active Robbie Busby MD Active HYDRALAZINE HCL 25 MG TABS 1 tablet by mouth tid for hypertension HYDRALAZINE HCL 63756673332 No Longer Active Robbie Busby MD Active VIIBRYD 40 MG TABS take 1 tab po qday for depression. VILAZODONE HCL 16484027091 No Longer Active Robbie Busby MD Active TERBINAFINE HCL 250 MG TABS 1 tab po qday for foot infection 2014 TERBINAFINE HCL 85364209842 No Longer Active Robbie Busby MD Active GABAPENTIN 300 MG CAPS 1 po q hs for nerve pain GABAPENTIN 22691510520 Active Robbie Busby MD Active CHERATUSSIN AC 100-10 MG/5ML ORAL SOLN 7.5 mL PO q 4-6 hrs PRN cough GUAIFENESIN-CODEINE 39474072367 No Longer Active Robbie Busby MD Active AZITHROMYCIN 250 MG ORAL TABS 2 tablets PO today---then, 1 tablet PO daily x 4 more days (and 1 optional refill) AZITHROMYCIN 50480159673 No Longer Active Robbie Busby MD Active NORVASC 10 MG TAB 1 tablet by mouth daily AMLODIPINE BESYLATE 60373705679 No Longer Active Alex ALVAREZ Active IMDUR 60 MG TAB CR take 1 tab po qday for blood pressure ISOSORBIDE MONONITRATE Active Robbie Busby MD Active ISOSORBIDE DINITRATE 30 MG TABS Take one by mouth daily ISOSORBIDE DINITRATE 26999150171 No Longer Active Robbie Busby MD Active VIIBRYD 40 MG TABS 1 TA B PO DAILY VILAZODONE HCL 88994621165 Active Robbie Busby MD Active ZITHROMAX 250 MG TAB 2 po today, then 1 po q days 2-5 AZITHROMYCIN 20196859481 No Longer Active Robbie Busby MD Active [id number] 0.3 MG/24HR PTWK apply 2 patches q week for HTN CLONIDINE HCL 81432808968 Active Robbie Busby MD Active DOXAZOSIN MESYLATE 4 MG TABS Take one by mouth daily DOXAZOSIN MESYLATE 19491763416 Active Robbie Busby MD Active TOPROL XL 200 MG [id number] Take one by mouth daily METOPROLOL SUCCINATE 73614480141 Active Robbie Busby MD Active VENLAFAXINE HCL ER 150 MG [id number] Take one by mouth daily VENLAFAXINE HCL 08521205833 Active Robbie Busby MD Active LIPITOR 40 MG TABS Take one by mouth daily ATORVASTATIN CALCIUM 36721382367 Active Robbie Busby MD Active HYDROCHLOROTHIAZIDE TABS Take one by mouth daily HYDROCHLOROTHIAZIDE TABS HYDROCHLOROTHIAZIDE TABS Inactive BACTRIM DS 800-160 MG TAB 1 tab by mouth twice daily BACTRIM DS 800-160 MG TAB 985908 TRIMETHOPRIM-SULFAMETHOXAZOLE Inactive BETADINE 10 % EXT SOLN wash with solution to treat follicultis BETADINE 10 % EXT SOLN 7565574 POVIDONE-IODINE Inactive CLONIDINE HCL 0.2 MG ORAL TABS 1 TAB BY MOUTH EVERY 8 HOURS 12/29 CLONIDINE HCL 0.2 MG ORAL TABS 014929 CLONIDINE HCL Inactive CYCLOBENZAPRINE HCL 10 MG TABS 1 tablet by mouth three times daily as needed for muscle spasm/pain for 10 days CYCLOBENZAPRINE HCL 10 MG TABS 164813 CYCLOBENZAPRINE HCL Inactive HYDRALAZINE HCL 25 MG TABS 1 tablet by mouth tid for hypertension HYDRALAZINE HCL 25 MG TABS 674890 HYDRALAZINE HCL Inactive HYDRALAZINE HCL 50 MG ORAL TABS TWO BY MOUTH THREE TIMES DAILY HYDRALAZINE HCL 50 MG ORAL TABS 837366 HYDRALAZINE HCL Inactive ISOSORBIDE DINITRATE 30 MG TABS Take one by mouth daily ISOSORBIDE DINITRATE 30 MG TABS 185157 ISOSORBIDE DINITRATE Inactive KEFLEX 500 MG CAP 1 po TID x 10 days KEFLEX 500 MG CAP 569446 CEPHALEXIN Inactive NITROSTAT 0.4 MG SUBL PRN NITROSTAT 0.4 MG SUBL 181198 NITROGLYCERIN Inactive NORVASC 10 MG TAB 1 tablet by mouth daily NORVASC 10 MG TAB 435244 AMLODIPINE BESYLATE Inactive NYSTATIN 197562 UNIT/ML M/T SUSP 5mL po QID x 10 days NYSTATIN 877316 UNIT/ML M/T SUSP 270198 NYSTATIN Inactive PREDNISONE 20 MG TAB 1 tablet twice daily for 2 days, then 1 tablet once daily for 2 days PREDNISONE 20 MG TAB 176794 PREDNISONE Inactive PREDNISONE 20 MG TAB take 3 tabs daily for 3 days, 2 tabs daily for 3 days, 1 tab daily for 3 days, 1/2 tab daily for 4 days PREDNISONE 20 MG TAB 016338 PREDNISONE Inactive SPIRONOLACTONE 25 MG TAB 4 tablets by mouth daily SPIRONOLACTONE 25 MG TAB 798231 SPIRONOLACTONE Inactive LORATADINE 10 MG TABS 1 tablet by mouth daily for congestion and allergies. LORATADINE 10 MG TABS 108619 LORATADINE Inactive SPIRONOLACTONE 50 MG TABS 1 tablet by mouth twice a day SPIRONOLACTONE 50 MG TABS 023782 SPIRONOLACTONE Inactive MECLIZINE HCL 25 MG TAB one 4 times a day as needed for dizziness MECLIZINE HCL 25 MG TAB 137576 MECLIZINE HCL Inactive TERBINAFINE HCL 250 MG TABS 1 tab po qday for foot infection 2014 TERBINAFINE HCL 250 MG TABS 513944 TERBINAFINE HCL Inactive LEVAQUIN 500 MG TAB 1 tablet by mouth daily for 7 days LEVAQUIN 500 MG TAB 417849 LEVOFLOXACIN Inactive ZITHROMAX 250 MG TAB 2 po today, then 1 po q days 2-5 ZITHROMAX 250 MG TAB 778477 AZITHROMYCIN Inactive AZITHROMYCIN 250 MG ORAL TABS 2 tablets PO today---then, 1 tablet PO daily x 4 more days (and 1 optional refill) AZITHROMYCIN 250 MG ORAL TABS 866657 AZITHROMYCIN Inactive CEFDINIR 300 MG ORAL CAPS Take 1 cap po bid x 10 days CEFDINIR 300 MG ORAL CAPS 352874 CEFDINIR Inactive TRILEPTAL 150 MG ORAL TABS 1 TAB PO Q HS TRILEPTAL 150 MG ORAL TABS 401019 OXCARBAZEPINE Inactive PROTONIX 40 MG SOLR 1 po qday for acid reflux PROTONIX 40 MG SOLR 503025 PANTOPRAZOLE SODIUM Inactive FLONASE 50 MCG/ACT SUSP 1 spray each nostril twice daily for allergies and runny nose FLONASE 50 MCG/ACT SUSP 0885507 FLUTICASONE PROPIONATE Inactive HYDROCODONE-ACETAMINOPHEN 5-325 MG TABS 1 tab by mouth BID prn back pain 2013 HYDROCODONE-ACETAMINOPHEN 5-325 MG TABS 725387 HYDROCODONE -ACETAMINOPHEN Inactive GUAIFENESIN 600 MG [id number] 1 tab po q am GUAIFENESIN 600 MG [id number] GUAIFENESIN Inactive FENOFIBRATE 145 MG TABS Take one by mouth daily FENOFIBRATE 145 MG TABS 273701 FENOFIBRATE Inactive LAMISIL 125 MG ORAL PACK 1 TAB PO DAILY LAMISIL 125 MG ORAL PACK TERBINAFINE HCL Inactive VIIBRYD 40 MG TABS take 1 tab po qday for depression. VIIBRYD 40 MG TABS VILAZODONE HCL Inactive VITAMIN D3 62125 UNIT CAPS 2 CAPS PO WEEKLY VITAMIN D3 67968 UNIT CAPS CHOLECALCIFEROL Inactive CHERATUSSIN AC 100-10 MG/5ML ORAL SOLN 7.5 mL PO q 4-6 hrs PRN cough CHERATUSSIN AC 100-10 MG/5ML ORAL SOLN 693578 GUAIFENESIN- CODEINE Inactive FIORICET 50-300-40 MG ORAL CAPS take 1 tab po qday prn migraines. FIORICET 50-300-40 MG ORAL CAPS 297368 [id number] Inactive Advance Directives Directive Description Start Date [...] AUTO - Chemistry sodium, serum 142 mmol/L 828-293 3557/07/17 carbon dioxide, venous blood 28.2 mmol/L 21.0-32.0 [...] % 11.0-15.0 platelet count 185 THOUSAND/UL 10*3/mm3 692-778 8146/04/14 mean platelet volume 10.9 fL 7.5-12.5 Lab Report: LIPID PANEL, TSH/899, T4, FREE/866 - Chemistry cholesterol, serum 220 mg/dL 532-757 1966/04/14 HDL cholesterol, serum 30 mg/dL > OR=40 [...] 1.80 ng/mL 0.00-4.00 Lab Report: VITAMIN D, 25-HYDROXY/72016 - Chemistry vitamin D 25-hydroxy, serum 25 ng/mL 30-100 Office Visit: Confusion, dizziness after fall - Basic LDL target level 130 mg/dL Office Visit: Confusion, dizziness after fall - Chemistry HDL cholesterol, serum, target level 40 mg/dL triglyceride, target level 150 mg/dL cholesterol, target level 200 mg/dL Encounters Code Encounter Date Provider Facility CPT-52622 Level 3 Est. Patient 15:40:49 CDT Robbie Busby MD [facility] CPT-43038 Level 4 Est. Patient 15:18:19 CDT Robbie Busby MD [facility] CPT-61074 Level 3 Est. Patient 09:00:37 CDT Rober Rodríguez [facility] [place] CPT-09510 Level 3 Est. Patient 16:07:10 CDT Robbie Busby MD [facility] CPT-65536 Level 4 Est. Patient 11:56:16 CDT Eirn Garsia [facility] [place] CPT-08125 Level 3 Est. Patient 17:48:02 CDT Robbie Busby MD [facility] CPT-28250 Level 4 Est. Patient 12:00:49 MANAGER SCIENTIFIC Rober Rodríguez [facility] [place] CPT-01515 Level 3 Est. Patient 09:16:37 CDT Robbie Busby MD [facility] CPT-60689 Level 3 Est. Patient 19:38:43 CDT Robbie Busby MD [facility] CPT-60882 Level 3 Est. Patient 11:53:38 CDT Robbie Busby MD [facility] CPT-03207 Level 4 Est. Patient 12:52:22 CDT Rober Rodríguez [facility] [place] CPT-20372 Level 4 Est. Patient 22:55:17 CDT Robbie Bubsy MD [facility] CPT-98107 Level 3 Est. Patient 12:38:24 CDT Desmond Diaz DO [facility] CPT-51596 Level 4 Est. Patient 11:25:03 MANAGER SCIENTIFIC Robbie Busby MD [facility] CPT-25205 Level 4 Est. Patient 14:50:10 CDT Robbie Busby MD [facility] CPT-27971 Level 4 Est. Patient 23:30:43 CDT Robbie Busby MD [facility] CPT-17802 Level 4 Est. Patient 10:30:43 CDT Robbie Busby MD [facility] CPT-22570 Level 3 Est. Patient 17:08:[address] [facility] CPT-97619 Level 4 Est. Patient 17:51:38 CDT Robbie Busby MD [facility] CPT-50290 Level 4 Est. Patient 14:00:21 CDT Rob[address] Bus[address] [facility] CPT-93308 Level 4 Est. Patient 12:46:48 CDT Robbie Busby MD [facility] CPT-49877 Level 4 Est. Patient 13:34:33 CDT Robbie Busby MD [facility] CPT-11332 Level 4 Est. Patient 16:58:28 CDT Robbie Busby MD [facility] CPT-61927 Level 3 Est. Patient 19:36:53 CDT Alex Shaw [facility] CPT-33361 Level 3 Est. Patient 12:58:15 CDT Robbie Busby MD [facility] Procedures Code Procedure Name Date Entry Date Standard Description CPT-J1071 Depo Testosterone 200mg 10:22:56 MANAGER SCIENTIFIC CPT-88880 Abx/Therapy Injection 10:22:56 MANAGER SCIENTIFIC CPT-J1071 Depo Testosterone 200mg 15:40:23 CDT CPT-40780 Abx/Therapy Injection 15:40:23 CDT CPT-J1071 Depo Testosterone 200mg 14:20:43 CDT CPT-30441 Abx/Therapy Injection 14:20:43 CDT CPT-J1071 Depo Testosterone 200mg 14:17:22 CDT CPT-63507 Abx/Therapy Injection 14:17:22 CDT CPT-J1071 Depo Testosterone 200mg 09:03:53 CDT CPT-02270 Abx/Therapy Injection 09:03:53 CDT CPT-G0439 [facility] Annual Wellness Exam 16:47:44 CDT CPT-J1071 Depo Testosterone 200mg 09:06:28 CDT CPT-77842 Abx/Therapy Injection 09:06:28 CDT CPT-J1071 Depo Testosterone 200mg 08:30:01 CDT CPT-64769 Abx/Therapy Injection 08:30:01 CDT CPT-J1071 Depo Testosterone 200mg 08:24:00 CDT CPT-70460 Abx/Therapy Injection 08:24:00 CDT CPT-11947 Venipuncture Draw Fee 14:39:06 CDT CPT-03522 Ribs unilateral 2V - XRAY USE ONLY 12:10:11 CDT CPT-45558 First Vx - Ix admin for Medicare patients 16:32:53 CDT CPT-84629 Boostrix Intramuscular Suspension 5-2.5-18.5 16:32:53 CDT CPT-31299 TB Skin Test 11:42:28 CDT CPT-59688 Tdap 7yrs or > 11:42:28 CDT CPT-J0696 Rocephin 1000 mg (Ceftriaxone) 17:43:43 MANAGER SCIENTIFIC CPT-J1040 Depo Medrol 80 mg (Methyl Prednisolone Acetate) 17:43: 43 MANAGER SCIENTIFIC CPT-J1100 Decadron 8mg (Dexamethasone) 17:43:42 MANAGER SCIENTIFIC CPT-05579 Abx/Therapy Injection 17:43:42 MANAGER SCIENTIFIC CPT-65947 Abx/Therapy Injection 17:43:42 MANAGER SCIENTIFIC CPT-J1040 Depo Medrol 80 mg (Methyl Prednisolone Acetate) 09:43: 34 MANAGER SCIENTIFIC CPT-J1100 Decadron 8mg (Dexamethasone) 09:43:34 MANAGER SCIENTIFIC CPT-J0696 Rocephin 1gm Inj Solr 09:43:34 MANAGER SCIENTIFIC CPT-91882 Wound Culture - LAB USE ONLY 14:00:21 CDT CPT-I/D I/D Abscess 09:16:37 CDT CPT-20067 Venipuncture Draw Fee 15:20:23 CDT CPT-44555 Microalbumin - LAB USE ONLY 16:02:19 CDT CPT-87865 CBC - LAB USE ONLY 16:02:19 CDT CPT-96918 Venipuncture Draw Fee 16:02:19 CDT CPT-G0438 Initial Annual Wellness Exam 08:10:28 CDT CPT-53704 Venipuncture Draw Fee 13:07:17 CDT CPT-G0008 Administration of Influenza Virus Vaccine 16:09:59 CDT CPT-84070 Fluzone Quadrivalent Intramuscular Suspension 0.5 ML 16: 09:59 CDT CPT-81160 Spec Collection and Handling Fee 15:05:50 CDT
--- OUTSIDE RECORDS SUMMARY | 2018-04-18 12:26 | XMS REPORT | Clinical Summary ---
Author Author Admin, AKUA Organization [facility] Address Unknown Phone Unavailable Allergies, Adverse Reactions, [...] day as needed for dizziness MECLIZINE HCL 46493994697 Active Robbie Busby MD Active TRILEPTAL 150 MG ORAL TABS 1 TAB PO Q HS OXCARBAZEPINE 48198150041 Active Robbie Busby MD Active TEMAZEPAM 15 MG ORAL CAPS 1 TAB PO Q HS TEMAZEPAM 65616436186 Active Robbie Busby MD Active ALPRAZOLAM 2 MG ORAL TABS 1 TAB PO BID ALPRAZOLAM 42478023759 Active Robbie Busby MD Active FENOFIBRATE 145 MG TABS Take one by mouth daily FENOFIBRATE 44467845597 No Longer Active Robbie Busby MD Active LAMISIL 125 MG ORAL PACK 1 TAB PO DAILY TERBINAFINE HCL 67103679954 Active Robbie Busby MD Active SPIRONOLACTONE 50 MG TABS 1 tablet by mouth twice a day SPIRONOLACTONE 42570751334 No Longer Active Robbie Busby MD Active HYDRALAZINE HCL 25 MG TABS 1 tablet by mouth tid for hypertension HYDRALAZINE HCL 51184434648 No Longer Active Robbie Busby MD Active VIIBRYD 40 MG TABS take 1 tab po qday for depression. VILAZODONE HCL 36423843631 No Longer Active Robbie Busby MD Active TERBINAFINE HCL 250 MG TABS 1 tab po qday for foot infection 2014 TERBINAFINE HCL 01699075270 No Longer Active Robbie Busby MD Active GABAPENTIN 300 MG CAPS 1 po q hs for nerve pain GABAPENTIN 36388480599 Active Robbie Busby MD Active FLONASE 50 MCG/ACT SUSP 1 spray each nostril twice daily for allergies and runny nose FLUTICASONE PROPIONATE 41972102118 Active Robbie Busby MD Active CHERATUSSIN AC 100-10 MG/5ML ORAL SOLN 7.5 mL PO q 4-6 hrs PRN cough GUAIFENESIN-CODEINE 98920237809 No Longer Active Robbie Busby MD Active AZITHROMYCIN 250 MG ORAL TABS 2 tablets PO today---then, 1 tablet PO daily x 4 more days (and 1 optional refill) AZITHROMYCIN 69718513835 No Longer Active Robbie Busby MD Active CLONIDINE HCL 0.2 MG ORAL TABS 1 TAB BY MOUTH EVERY 8 HOURS CLONIDINE HCL 15657105043 Active Robbie Busby MD Active HYDROCHLOROTHIAZIDE TABS Take one by mouth daily HYDROCHLOROTHIAZIDE TABS 56794341515 Active Alex ALVAREZ Active NORVASC 10 MG TAB 1 tablet by mouth daily AMLODIPINE BESYLATE 78909167603 No Longer Active Alex ALVAREZ Active PROTONIX 40 MG SOLR 1 po qday for acid reflux PANTOPRAZOLE SODIUM 96067164728 Active Robbie Busby MD Active IMDUR 60 MG TAB CR take 1 tab po qday for blood pressure ISOSORBIDE MONONITRATE Active Robbie Busby MD Active ISOSORBIDE DINITRATE 30 MG TABS Take one by mouth daily ISOSORBIDE DINITRATE 53049515512 No Longer Active Robbie Busby MD Active VIIBRYD 40 MG TABS 1 TA B PO DAILY VILAZODONE HCL 26281722331 Active Robbie Busby MD Active LORATADINE 10 MG TABS 1 tablet by mouth daily for congestion and allergies. LORATADINE 17625840274 Active Robbie Busby MD Active ZITHROMAX 250 MG TAB 2 po today, then 1 po q days 2-5 AZITHROMYCIN 65356547818 No Longer Active Robbie Busby MD Active HYDROCODONE-ACETAMINOPHEN 5-325 MG TABS 1 tab by mouth BID prn back pain 2013 HYDROCODONE-ACETAMINOPHEN 48043228531 Active Robbie Busby MD Active HYDRALAZINE HCL 50 MG TABS take 1 tab po QID for high blood pressure HYDRALAZINE HCL 87892952050 Active Robbie Busby MD Active UPAMLHPJ-[id number]-4 0.3 MG/24HR PTWK apply 2 patches q week for HTN CLONIDINE HCL 51792712508 Active Alexa Menon MD PhD Active NITROSTAT 0.4 MG SUBL PRN NITROGLYCERIN 33730435432 Active Robbie Busby MD Active DOXAZOSIN MESYLATE 4 MG TABS Take one by mouth daily DOXAZOSIN MESYLATE 04519319130 Active Robbie Busby MD Active TOPROL XL 200 MG [id number]-MEN Take one by mouth daily METOPROLOL SUCCINATE 93375657885 Active Robbie Busby MD Active VENLAFAXINE HCL ER 150 MG [id number] Take one by mouth daily VENLAFAXINE HCL 25713960602 Active Robbie Busby MD Active LIPITOR 40 MG TABS Take one by mouth daily ATORVASTATIN CALCIUM 30590289373 Active Robbie Busby MD Active ISOSORBIDE DINITRATE 30 MG TABS Take one by mouth daily ISOSORBIDE DINITRATE 30 MG TABS 258501 ISOSORBIDE DINITRATE Inactive NORVASC 10 MG TAB 1 tablet by mouth daily NORVASC 10 MG TAB 187362 AMLODIPINE BESYLATE Inactive AZITHROMYCIN 250 MG ORAL TABS 2 tablets PO today---then, 1 tablet PO daily x 4 more days (and 1 optional refill) AZITHROMYCIN 250 MG ORAL TABS 3277944 AZITHROMYCIN Inactive CHERATUSSIN AC 100-10 MG/5ML ORAL SOLN 7.5 mL PO q 4-6 hrs PRN cough CHERATUSSIN AC 100-10 MG/5ML ORAL SOLN 980337 GUAIFENESIN- CODEINE Inactive VIIBRYD 40 MG TABS take 1 tab po qday for depression. VIIBRYD 40 MG TABS VILAZODONE HCL Inactive HYDRALAZINE HCL 25 MG TABS 1 tablet by mouth tid for hypertension HYDRALAZINE HCL 25 MG TABS 869535 HYDRALAZINE HCL Inactive SPIRONOLACTONE 50 MG TABS 1 tablet by mouth twice a day SPIRONOLACTONE 50 MG TABS 700234 SPIRONOLACTONE Inactive FENOFIBRATE 145 MG TABS Take one by mouth daily FENOFIBRATE 145 MG TABS 056067 FENOFIBRATE Inactive ZITHROMAX 250 MG TAB 2 po today, then 1 po q days 2-5 ZITHROMAX 250 MG TAB 9681178 AZITHROMYCIN Inactive TERBINAFINE HCL 250 MG TABS 1 tab po qday for foot infection 2014 TERBINAFINE HCL 250 MG TABS 696914 TERBINAFINE HCL Inactive Vital Signs Date Name [...] E&M - 3141-9 202 [lb_av] Weight Measured Diagnostic Results Date Name [...] Panel - Chemistry sodium, serum 141 mmol/L 500-100 5520/12/05 potassium, serum 4.0 mmol/L 3.5-5.2 chloride, serum [...] 11.6-14.8 platelet count 253 10^3/MM^3 10*3/mm3 142-424 Encounters Code Encounter Date Provider Facility CPT-03952 Level 4 Est. Patient 23:30:43 CDT Robbie Busby MD [facility] CPT-88235 Level 4 Est. Patient 10:30:43 CDT Robbie Busby MD [facility] CPT-11692 Level 3 Est. Patient 17:08:12 CDT Alex Shaw [facility] CPT-02339 Level 4 Est. Patient 17:51:38 CDT Robbie Busby MD [facility] CPT-67845 Level 4 Est. Patient 14:00:21 CDT Robbie Busby MD [facility] CPT-29482 Level 4 Est. Patient 12:46:48 CDT Robbie Busby MD [facility] CPT-30244 Level 4 Est. Patient 13:34:33 CDT Robbie Busby MD [facility] CPT-58398 Level 4 Est. Patient 16:58:28 CDT Robbie Busby MD [facility] CPT-39688 Level 3 Est. Patient 19:36:53 CDT Alex Shaw [facility] CPT-68511 Level 3 Est. Patient 12:58:15 CDT Robbie Busby MD [facility] Procedures Code Procedure Name Date Entry Date Standard Description CPT-G0008 Administration of Influenza Virus Vaccine 16:09:59 CDT CPT-66861 Fluzone Quadrivalent Intramuscular Suspension 0.5 ML 16: 09:59 CDT CPT-62940 Spec Collection and Handling Fee 15:05:50 CDT
--- OUTSIDE RECORDS SUMMARY | 2018-04-18 12:26 | XMS REPORT | Clinical Summary ---
Author Author Admin, AKUA Organization [employer] Address Unknown Phone Unavailable Allergies, Adverse Reactions, [...] muscle spasm/pain for 10 days CYCLOBENZAPRINE HCL 53526089442 Active JONATHAN Moncada Active GUAIFENESIN 600 MG [id number] 1 tab po q am GUAIFENESIN 76202512432 Active Rober Rodríguez APRN Active FLUTICASONE PROPIONATE 50 MCG/ACT SUSP 2 sprays per nostril bid for 1 week, then 1 spray bid FLUTICASONE PROPIONATE 77956483763 Active Rober Rodríguez APRN Active HYDRALAZINE HCL 25 MG ORAL TABS Take 1 tab BID. HYDRALAZINE HCL 63136869932 Active Rober Rodríguez APRN Active VITAMIN D3 02663 UNIT ORAL TABS 2 po weekly CHOLECALCIFEROL 78570358019 Active JONATHAN Moncada Active OXYCODONE HCL ER 10 MG ORAL T12A 1 tab po 3 times qd. OXYCODONE HCL 68539971848 Active Robbie Busby MD Active NITROSTAT 0.4 MG SUBL PRN NITROGLYCERIN 81109966681 No Longer Active Robbie Busby MD Active LORATADINE 10 MG TABS 1 tablet by mouth daily for congestion and allergies. LORATADINE 46605385570 No Longer Active Robbie Busby MD Active FLONASE 50 MCG/ACT SUSP 1 spray each nostril twice daily for allergies and runny nose FLUTICASONE PROPIONATE 21242727216 No Longer Active Robbie Busby MD Active FIORICET 50-300-40 MG ORAL CAPS take 1 tab po qday prn migraines. [id number] 28651611524 No Longer Active Robbie Busby MD Active VITAMIN D3 19756 UNIT CAPS 2 CAPS PO WEEKLY CHOLECALCIFEROL 31620491265 No Longer Active Robbie Busby MD Active CYCLOBENZAPRINE HCL 10 MG TABS 1 tablet by mouth three times daily as needed for muscle spasm/pain for 10 days CYCLOBENZAPRINE HCL 23426139287 No Longer Active Robbie Busby MD Active PREDNISONE 20 MG TAB take 3 tabs daily for 3 days, 2 tabs daily for 3 days, 1 tab daily for 3 days, 1/2 tab daily for 4 days PREDNISONE 36179548349 No Longer Active Erin Garsia APRN Active CLONIDINE HCL 0.2 MG ORAL TABS 1 TAB BY MOUTH EVERY 8 HOURS 12/29 CLONIDINE HCL 23502363061 No Longer Active Erin Garsia APRN Active MECLIZINE HCL 25 MG TAB one 4 times a day as needed for dizziness MECLIZINE HCL 24640010036 No Longer Active Erin Garsia APRN Active SPIRONOLACTONE 25 MG TAB 4 tablets by mouth daily SPIRONOLACTONE 27663838737 No Longer Active Erin Garsia APRN Active LEVAQUIN 500 MG TAB 1 tablet by mouth daily for 7 days LEVOFLOXACIN 82515360164 No Longer Active Erin Garsia APRN Active BACTRIM DS 800-160 MG TAB 1 tab by mouth twice daily TRIMETHOPRIM-SULFAMETHOXAZOLE 55408843385 No Longer Active Robbie Busby MD Active HYDRALAZINE HCL 50 MG ORAL TABS TWO BY MOUTH THREE TIMES DAILY HYDRALAZINE HCL 45258656157 No Longer Active Jillina Frazell PROJECT ARCHITECT Active HYDROCODONE-ACETAMINOPHEN 5-325 MG TABS 1 tab by mouth BID prn back pain 2013 HYDROCODONE-ACETAMINOPHEN 75739512018 No Longer Active Jillina Frazell PROJECT ARCHITECT Active HYDROCHLOROTHIAZIDE TABS Take one by mouth daily HYDROCHLOROTHIAZIDE TABS 32735403351 No Longer Active Jillina Frazell PROJECT ARCHITECT Active LAMISIL 125 MG ORAL PACK 1 TAB PO DAILY TERBINAFINE HCL 25340656910 No Longer Active Jillina Frazell PROJECT ARCHITECT Active TRILEPTAL 150 MG ORAL TABS 1 TAB PO Q HS OXCARBAZEPINE 62165206728 No Longer Active Jillina Frazell PROJECT ARCHITECT Active BETADINE 10 % EXT SOLN wash with solution to treat follicultis POVIDONE-IODINE 21909316776 No Longer Active Jillina Frazell PROJECT ARCHITECT Active NYSTATIN 456011 UNIT/ML M/T SUSP 5mL po QID x 10 days NYSTATIN 76787414924 No Longer Active Erin Garsia APRN Active PREDNISONE 20 MG TAB 1 tablet twice daily for 2 days, then 1 tablet once daily for 2 days PREDNISONE 20498186612 No Longer Active Robbie Busby MD Active CEFDINIR 300 MG ORAL CAPS Take 1 cap po bid x 10 days CEFDINIR 55402033968 No Longer Active Robbie Busby MD Active AMLODIPINE BESYLATE 10 MG TABS 1 tablet by mouth daily AMLODIPINE BESYLATE 50635198458 Active Robbie Busby MD Active CARVEDILOL 25 MG TABS 1 & 1/2 TAB po BID CARVEDILOL 81640243605 Active Robbie Busby MD Active NEXIUM 40 MG CPDR 1 cap by mouth daily ESOMEPRAZOLE MAGNESIUM 00149372477 Active Robbie Busby MD Active PROTONIX 40 MG SOLR 1 po qday for acid reflux PANTOPRAZOLE SODIUM 53159700543 No Longer Active Gali Raida Active KEFLEX 500 MG CAP 1 po TID x 10 days CEPHALEXIN 99101903552 No Longer Active Robbie Busby MD Active TOPIRAMATE 50 MG ORAL TABS take 1 tab po BID for migraines. TOPIRAMATE 94363855616 Active Robbie Busby MD Active TEMAZEPAM 15 MG ORAL CAPS 1 TAB PO Q HS TEMAZEPAM 03721172400 Active Robbie Busby MD Active ALPRAZOLAM 2 MG ORAL TABS 1 TAB PO BID ALPRAZOLAM 24115950091 Active Robbie Busby MD Active FENOFIBRATE 145 MG TABS Take one by mouth daily FENOFIBRATE 33303488504 No Longer Active Robbie Busby MD Active SPIRONOLACTONE 50 MG TABS 1 tablet by mouth twice a day SPIRONOLACTONE 81547628346 No Longer Active Robbie Busby MD Active HYDRALAZINE HCL 25 MG TABS 1 tablet by mouth tid for hypertension HYDRALAZINE HCL 65671374891 No Longer Active Robbie Busby MD Active VIIBRYD 40 MG TABS take 1 tab po qday for depression. VILAZODONE HCL 44962732662 No Longer Active Robbie Busby MD Active TERBINAFINE HCL 250 MG TABS 1 tab po qday for foot infection 2014 TERBINAFINE HCL 00576551841 No Longer Active Robbie Busby MD Active GABAPENTIN 300 MG CAPS 1 po q hs for nerve pain GABAPENTIN 09790733416 Active Robbie Busby MD Active CHERATUSSIN AC 100-10 MG/5ML ORAL SOLN 7.5 mL PO q 4-6 hrs PRN cough GUAIFENESIN-CODEINE 41706953741 No Longer Active Robbie Busby MD Active AZITHROMYCIN 250 MG ORAL TABS 2 tablets PO today---then, 1 tablet PO daily x 4 more days (and 1 optional refill) AZITHROMYCIN 64436905431 No Longer Active Robbie Busby MD Active NORVASC 10 MG TAB 1 tablet by mouth daily AMLODIPINE BESYLATE 67984942047 No Longer Active Alex ALVAREZ Active IMDUR 60 MG TAB CR take 1 tab po qday for blood pressure ISOSORBIDE MONONITRATE Active Robbie Busby MD Active ISOSORBIDE DINITRATE 30 MG TABS Take one by mouth daily ISOSORBIDE DINITRATE 35057574184 No Longer Active Robbie Busby MD Active VIIBRYD 40 MG TABS 1 TA B PO DAILY VILAZODONE HCL 82403266205 Active Robbie Busby MD Active ZITHROMAX 250 MG TAB 2 po today, then 1 po q days 2-5 AZITHROMYCIN 32808821011 No Longer Active Robbie Busby MD Active [id number]-SOT-0 0.3 MG/24HR PTWK apply 2 patches q week for HTN CLONIDINE HCL 10546333964 Active Robbie Busby MD Active DOXAZOSIN MESYLATE 4 MG TABS Take one by mouth daily DOXAZOSIN MESYLATE 19023269575 Active Robbie Busby MD Active TOPROL XL 200 MG [id number] Take one by mouth daily METOPROLOL SUCCINATE 85334334431 Active Robbie Busby MD Active VENLAFAXINE HCL ER 150 MG AJ12R-PCF Take one by mouth daily VENLAFAXINE HCL 28917528133 Active Robbie Busby MD Active LIPITOR 40 MG TABS Take one by mouth daily ATORVASTATIN CALCIUM 99294188409 Active Robbie Busby MD Active ISOSORBIDE DINITRATE 30 MG TABS Take one by mouth daily ISOSORBIDE DINITRATE 30 MG TABS 419968 ISOSORBIDE DINITRATE Inactive NORVASC 10 MG TAB 1 tablet by mouth daily NORVASC 10 MG TAB 547713 AMLODIPINE BESYLATE Inactive AZITHROMYCIN 250 MG ORAL TABS 2 tablets PO today---then, 1 tablet PO daily x 4 more days (and 1 optional refill) AZITHROMYCIN 250 MG ORAL TABS 7050228 AZITHROMYCIN Inactive CHERATUSSIN AC 100-10 MG/5ML ORAL SOLN 7.5 mL PO q 4-6 hrs PRN cough CHERATUSSIN AC 100-10 MG/5ML ORAL SOLN 698885 GUAIFENESIN- CODEINE Inactive VIIBRYD 40 MG TABS take 1 tab po qday for depression. VIIBRYD 40 MG TABS VILAZODONE HCL Inactive HYDRALAZINE HCL 25 MG TABS 1 tablet by mouth tid for hypertension HYDRALAZINE HCL 25 MG TABS 359875 HYDRALAZINE HCL Inactive SPIRONOLACTONE 50 MG TABS 1 tablet by mouth twice a day SPIRONOLACTONE 50 MG TABS 088555 SPIRONOLACTONE Inactive FENOFIBRATE 145 MG TABS Take one by mouth daily FENOFIBRATE 145 MG TABS 107559 FENOFIBRATE Inactive PROTONIX 40 MG SOLR 1 po qday for acid reflux PROTONIX 40 MG SOLR 310554 PANTOPRAZOLE SODIUM Inactive CEFDINIR 300 MG ORAL CAPS Take 1 cap po bid x 10 days CEFDINIR 300 MG ORAL CAPS 000315 CEFDINIR Inactive PREDNISONE 20 MG TAB 1 tablet twice daily for 2 days, then 1 tablet once daily for 2 days PREDNISONE 20 MG TAB 444071 PREDNISONE Inactive NYSTATIN 746644 UNIT/ML M/T SUSP 5mL po QID x 10 days NYSTATIN 617033 UNIT/ML M/T SUSP 286046 NYSTATIN Inactive BETADINE 10 % EXT SOLN wash with solution to treat follicultis BETADINE 10 % EXT SOLN 8005761 POVIDONE-IODINE Inactive TRILEPTAL 150 MG ORAL TABS 1 TAB PO Q HS TRILEPTAL 150 MG ORAL TABS 327410 OXCARBAZEPINE Inactive LAMISIL 125 MG ORAL PACK 1 TAB PO DAILY LAMISIL 125 MG ORAL PACK TERBINAFINE HCL Inactive HYDROCHLOROTHIAZIDE TABS Take one by mouth daily HYDROCHLOROTHIAZIDE TABS HYDROCHLOROTHIAZIDE TABS Inactive HYDROCODONE-ACETAMINOPHEN 5-325 MG TABS 1 tab by mouth BID prn back pain 2013 HYDROCODONE-ACETAMINOPHEN 5-325 MG TABS 013853 HYDROCODONE -ACETAMINOPHEN Inactive HYDRALAZINE HCL 50 MG ORAL TABS TWO BY MOUTH THREE TIMES DAILY HYDRALAZINE HCL 50 MG ORAL TABS 417395 HYDRALAZINE HCL Inactive LEVAQUIN 500 MG TAB 1 tablet by mouth daily for 7 days LEVAQUIN 500 MG TAB 511228 LEVOFLOXACIN Inactive SPIRONOLACTONE 25 MG TAB 4 tablets by mouth daily SPIRONOLACTONE 25 MG TAB 207452 SPIRONOLACTONE Inactive MECLIZINE HCL 25 MG TAB one 4 times a day as needed for dizziness MECLIZINE HCL 25 MG TAB 570653 MECLIZINE HCL Inactive CLONIDINE HCL 0.2 MG ORAL TABS 1 TAB BY MOUTH EVERY 8 HOURS 12/29 CLONIDINE HCL 0.2 MG ORAL TABS 651790 CLONIDINE HCL Inactive CYCLOBENZAPRINE HCL 10 MG TABS 1 tablet by mouth three times daily as needed for muscle spasm/pain for 10 days CYCLOBENZAPRINE HCL 10 MG TABS 236494 CYCLOBENZAPRINE HCL Inactive VITAMIN D3 43144 UNIT CAPS 2 CAPS PO WEEKLY VITAMIN D3 08029 UNIT CAPS CHOLECALCIFEROL Inactive FIORICET 50-300-40 MG ORAL CAPS take 1 tab po qday prn migraines. FIORICET 50-300-40 MG ORAL CAPS 603688 [id number] Inactive FLONASE 50 MCG/ACT SUSP 1 spray each nostril twice daily for allergies and runny nose FLONASE 50 MCG/ACT SUSP 8446302 FLUTICASONE PROPIONATE Inactive LORATADINE 10 MG TABS 1 tablet by mouth daily for congestion and allergies. LORATADINE 10 MG TABS 735153 LORATADINE Inactive NITROSTAT 0.4 MG SUBL PRN NITROSTAT 0.4 MG SUBL 929436 NITROGLYCERIN Inactive ZITHROMAX 250 MG TAB 2 po today, then 1 po q days 2-5 ZITHROMAX 250 MG TAB 1042126 AZITHROMYCIN Inactive TERBINAFINE HCL 250 MG TABS 1 tab po qday for foot infection 2014 TERBINAFINE HCL 250 MG TABS 145844 TERBINAFINE HCL Inactive KEFLEX 500 MG CAP 1 po TID x 10 days KEFLEX 500 MG CAP 448768 CEPHALEXIN Inactive BACTRIM DS 800-160 MG TAB 1 tab by mouth twice daily BACTRIM DS 800-160 MG TAB 112097 TRIMETHOPRIM-SULFAMETHOXAZOLE Inactive PREDNISONE 20 MG TAB take 3 tabs daily for 3 days, 2 tabs daily for 3 days, 1 tab daily for 3 days, 1/2 tab daily for 4 days PREDNISONE 20 MG TAB 969312 PREDNISONE Inactive Advance Directives Directive Description Start [...] AUTO - Chemistry sodium, serum 142 mmol/L 410-222 9760/07/17 carbon dioxide, venous blood 28.2 mmol/L 21.0-32.0 [...] % 11.0-15.0 platelet count 185 THOUSAND/UL 10*3/mm3 035-916 6210/04/14 mean platelet volume 10.9 fL 7.5-12.5 Lab Report: LIPID PANEL, TSH/899, T4, FREE/866 - Chemistry cholesterol, serum 220 mg/dL 736-004 6445/04/14 HDL cholesterol, serum 30 mg/dL > OR=40 triglyceride, serum, fasting 466 mg/dL <150 LDL cholesterol, serum SEE NOTE mg/dL (calc) mg/dL <130 cholesterol/HDL ratio, serum 7.3 (calc) < OR=5.0 Lab Report: MICROALB/CREAT W/RATIO - Chemistry albumin/creatinine ratio, urine < 30 mg/g mg/g{creat} 0-29 Lab Report: MICROALB/CREAT W/RATIO - Lab microalbumin, urine 80 0-19 Lab Report: VITAMIN D, 25-HYDROXY/80897 - Chemistry vitamin D 25-hydroxy, serum 25 ng/mL 30-100 Office Visit: Confusion, dizziness after fall - Basic LDL target level 130 mg/dL Office Visit: Confusion, dizziness after fall - Chemistry HDL cholesterol, serum, target level 40 mg/dL triglyceride, target level 150 mg/dL cholesterol, target level 200 mg/dL Encounters Code Encounter Date Provider Facility CPT-85863 Level 3 Est. Patient 09:00:37 CDT Rober Rodríguez [facility] CPT-32564 Level 3 Est. Patient 16:07:10 CDT Robbie Busby MD [facility] CPT-33338 Level 4 Est. Patient 11:56:16 CDT Erin Garsia [facility] CPT-55775 Level 3 Est. Patient 17:48:02 CDT Robbie Busby MD [facility] CPT-83914 Level 4 Est. Patient 12:00:49 EMBOSSING CLERK Rober Rodríguez [facility] CPT-31341 Level 3 Est. Patient 09:16:37 CDT Robbie Busby MD [facility] CPT-90874 Level 3 Est. Patient 19:38:43 CDT Robbie Busby MD [facility] CPT-10006 Level 3 Est. Patient 11:53:38 CDT Robbie Busby MD [facility] CPT-13495 Level 4 Est. Patient 12:52:22 CDT Rober Rodríguez [facility] CPT-21796 Level 4 Est. Patient 22:55:17 CDT Robbie Busby MD [facility] CPT-21433 Level 3 Est. Patient 12:38:24 CDT Desmond Diaz DO [facility] CPT-98264 Level 4 Est. Patient 11:25:03 EMBOSSING CLERK Robbie Busby MD [facility] CPT-21107 Level 4 Est. Patient 14:50:10 CDT Robbie Busby MD [facility] CPT-91323 Level 4 Est. Patient 23:30:43 CDT Robbie Busby MD [facility] CPT-71134 Level 4 Est. Patient 10:30:43 CDT Robbie Busby MD [facility] CPT-19355 Level 3 Est. Patient 17:08:12 CDT Alex Shaw [facility] CPT-76228 Level 4 Est. Patient 17:51:38 CDT Robbie Busby MD [facility] CPT-00724 Level 4 Est. Patient 14:00:21 CDT Robbie Busby MD [facility] CPT-07879 Level 4 Est. Patient 12:46:48 CDT Robbie Busby MD [facility] CPT-38891 Level 4 Est. Patient 13:34:33 CDT Robbie Busby MD [facility] CPT-85377 Level 4 Est. Patient 16:58:28 CDT Robbie Busby MD [facility] CPT-23860 Level 3 Est. Patient 19:36:53 CDT Alex Shaw [facility] CPT-10159 Level 3 Est. Patient 12:58:15 CDT Robbie Busby MD [facility] Procedures Code Procedure Name Date Entry Date Standard Description CPT-01700 Venipuncture Draw Fee 14:39:06 CDT CPT-66011 Ribs unilateral 2V - XRAY USE ONLY 12:10:11 CDT CPT-70245 First Vx - Ix admin for Medicare patients 16:32:53 CDT CPT-55311 Boostrix Intramuscular Suspension 5-2.5-18.5 16:32:53 CDT CPT-08865 TB Skin Test 11:42:28 CDT CPT-39428 Tdap 7yrs or > 11:42:28 CDT CPT-J0696 Rocephin 1000 mg (Ceftriaxone) 17:43:43 EMBOSSING CLERK CPT-J1040 Depo Medrol 80 mg (Methyl Prednisolone Acetate) 17:43: 43 EMBOSSING CLERK CPT-J1100 Decadron 8mg (Dexamethasone) 17:43:42 EMBOSSING CLERK CPT-88813 Abx/Therapy Injection 17:43:42 EMBOSSING CLERK CPT-08742 Abx/Therapy Injection 17:43:42 EMBOSSING CLERK CPT-J1040 Depo Medrol 80 mg (Methyl Prednisolone Acetate) 09:43: 34 EMBOSSING CLERK CPT-J1100 Decadron 8mg (Dexamethasone) 09:43:34 EMBOSSING CLERK CPT-J0696 Rocephin 1gm Inj Solr 09:43:34 EMBOSSING CLERK CPT-06097 Wound Culture - LAB USE ONLY 14:00:21 CDT CPT-I/D I/D Abscess 09:16:37 CDT CPT-51251 Venipuncture Draw Fee 15:20:23 CDT CPT-35385 Microalbumin - LAB USE ONLY 16:02:19 CDT CPT-19348 CBC - LAB USE ONLY 16:02:19 CDT CPT-51204 Venipuncture Draw Fee 16:02:19 CDT CPT-G0438 Initial Annual Wellness Exam 08:10:28 CDT CPT-42386 Venipuncture Draw Fee 13:07:17 CDT CPT-G0008 Administration of Influenza Virus Vaccine 16:09:59 CDT CPT-68026 Fluzone Quadrivalent Intramuscular Suspension 0.5 ML 16: 09:59 CDT CPT-53055 Spec Collection and Handling Fee 15:05:50 CDT
--- OUTSIDE RECORDS SUMMARY | 2018-04-18 12:28 | XMS REPORT | Clinical Summary ---
Author Author Admin, E Organization [facility] Address Unknown Phone Unavailable Allergies, Adverse [...] muscle spasm/pain for 10 days CYCLOBENZAPRINE HCL 49108801052 Active Erin Garsia APRN Active PREDNISONE 20 MG TAB take 3 tabs daily for 3 days, 2 tabs daily for 3 days, 1 tab daily for 3 days, 1/2 tab daily for 4 days PREDNISONE 09870176064 No Longer Active Erin Garsia APRN Active CLONIDINE HCL 0.2 MG ORAL TABS 1 TAB BY MOUTH EVERY 8 HOURS 12/29 CLONIDINE HCL 24443736714 No Longer Active Erin Garsia APRN Active MECLIZINE HCL 25 MG TAB one 4 times a day as needed for dizziness MECLIZINE HCL 26897774330 No Longer Active Erin Garsia APRN Active SPIRONOLACTONE 25 MG TAB 4 tablets by mouth daily SPIRONOLACTONE 47165139959 No Longer Active Erin Garsia APRN Active LEVAQUIN 500 MG TAB 1 tablet by mouth daily for 7 days LEVOFLOXACIN 17180012707 No Longer Active Erin Garsia APRN Active BACTRIM DS 800-160 MG TAB 1 tab by mouth twice daily TRIMETHOPRIM-SULFAMETHOXAZOLE 68684320012 No Longer Active Robbie Busby MD Active HYDRALAZINE HCL 50 MG ORAL TABS TWO BY MOUTH THREE TIMES DAILY HYDRALAZINE HCL 09364376367 No Longer Active Jillina Frazell [employer] Active HYDROCODONE-ACETAMINOPHEN 5-325 MG TABS 1 tab by mouth BID prn back pain 2013 HYDROCODONE-ACETAMINOPHEN 66827314534 No Longer Active Jillina Frazell [employer] Active HYDROCHLOROTHIAZIDE TABS Take one by mouth daily HYDROCHLOROTHIAZIDE TABS 70338012080 No Longer Active Jillina Frazell [employer] Active LAMISIL 125 MG ORAL PACK 1 TAB PO DAILY TERBINAFINE HCL 04367247372 No Longer Active Jillina Frazell [employer] Active TRILEPTAL 150 MG ORAL TABS 1 TAB PO Q HS OXCARBAZEPINE 61700651975 No Longer Active Jillina Frazell [employer] Active BETADINE 10 % EXT SOLN wash with solution to treat follicultis POVIDONE-IODINE 54439725733 No Longer Active Jillina Frazell [employer] Active NYSTATIN 333958 UNIT/ML M/T SUSP 5mL po QID x 10 days NYSTATIN 46474523134 No Longer Active Erin Garsia APRN Active PREDNISONE 20 MG TAB 1 tablet twice daily for 2 days, then 1 tablet once daily for 2 days PREDNISONE 55846659030 No Longer Active Robbie Busby MD Active CEFDINIR 300 MG ORAL CAPS Take 1 cap po bid x 10 days CEFDINIR 51093495195 No Longer Active Robbie Busby MD Active AMLODIPINE BESYLATE 10 MG TABS 1 tablet by mouth daily AMLODIPINE BESYLATE 06486282618 Active Robbie Busby MD Active CARVEDILOL 25 MG TABS 1 & 1/2 TAB po BID CARVEDILOL 31048760625 Active Robbie Busby MD Active VITAMIN D3 93507 UNIT CAPS 2 CAPS PO WEEKLY CHOLECALCIFEROL 01640686034 Active Erin Garsia APRN Active NEXIUM 40 MG CPDR 1 cap by mouth daily ESOMEPRAZOLE MAGNESIUM 90273882754 Active Robbie Busby MD Active PROTONIX 40 MG SOLR 1 po qday for acid reflux PANTOPRAZOLE SODIUM 24111379462 No Longer Active Gali Raida Active KEFLEX 500 MG CAP 1 po TID x 10 days CEPHALEXIN 27096370285 No Longer Active Robbie Busby MD Active FIORICET 50-300-40 MG ORAL CAPS take 1 tab po qday prn migraines. [id number] 89054599279 Active Robbie Busby MD Active TOPIRAMATE 50 MG ORAL TABS take 1 tab po BID for migraines. TOPIRAMATE 05902997473 Active Robbie Busby MD Active TEMAZEPAM 15 MG ORAL CAPS 1 TAB PO Q HS TEMAZEPAM 26654614518 Active Robbie Busby MD Active ALPRAZOLAM 2 MG ORAL TABS 1 TAB PO BID ALPRAZOLAM 23935339947 Active Robbie Busby MD Active FENOFIBRATE 145 MG TABS Take one by mouth daily FENOFIBRATE 12146141460 No Longer Active Robbie Busby MD Active SPIRONOLACTONE 50 MG TABS 1 tablet by mouth twice a day SPIRONOLACTONE 05897984639 No Longer Active Robbie Busby MD Active HYDRALAZINE HCL 25 MG TABS 1 tablet by mouth tid for hypertension HYDRALAZINE HCL 17836728803 No Longer Active Robbie Busby MD Active VIIBRYD 40 MG TABS take 1 tab po qday for depression. VILAZODONE HCL 60845506393 No Longer Active Robbie Busby MD Active TERBINAFINE HCL 250 MG TABS 1 tab po qday for foot infection 2014 TERBINAFINE HCL 14494155068 No Longer Active Robbie Busby MD Active GABAPENTIN 300 MG CAPS 1 po q hs for nerve pain GABAPENTIN 81336755053 Active Robbie Busby MD Active FLONASE 50 MCG/ACT SUSP 1 spray each nostril twice daily for allergies and runny nose FLUTICASONE PROPIONATE 41053227556 Active Robbie Busby MD Active CHERATUSSIN AC 100-10 MG/5ML ORAL SOLN 7.5 mL PO q 4-6 hrs PRN cough GUAIFENESIN-CODEINE 57727796952 No Longer Active Robbie Busby MD Active AZITHROMYCIN 250 MG ORAL TABS 2 tablets PO today---then, 1 tablet PO daily x 4 more days (and 1 optional refill) AZITHROMYCIN 52607792985 No Longer Active Robbie Busby MD Active NORVASC 10 MG TAB 1 tablet by mouth daily AMLODIPINE BESYLATE 75866148022 No Longer Active Alex ALVAREZ Active IMDUR 60 MG TAB CR take 1 tab po qday for blood pressure ISOSORBIDE MONONITRATE Active Robbie Busby MD Active ISOSORBIDE DINITRATE 30 MG TABS Take one by mouth daily ISOSORBIDE DINITRATE 80126908334 No Longer Active Robbie Busby MD Active VIIBRYD 40 MG TABS 1 TA B PO DAILY VILAZODONE HCL 29229855955 Active Robbie Busby MD Active LORATADINE 10 MG TABS 1 tablet by mouth daily for congestion and allergies. LORATADINE 89119038238 Active Robbie Busby MD Active ZITHROMAX 250 MG TAB 2 po today, then 1 po q days 2-5 AZITHROMYCIN 21234598313 No Longer Active Robbie Busby MD Active MUHCAJDL-MRQ-1 0.3 MG/24HR PTWK apply 2 patches q week for HTN CLONIDINE HCL 78128509909 Active Robbie Busby MD Active NITROSTAT 0.4 MG SUBL PRN NITROGLYCERIN 40766454402 Active Robbie Busby MD Active DOXAZOSIN MESYLATE 4 MG TABS Take one by mouth daily DOXAZOSIN MESYLATE 08387646180 Active Robbie Busby MD Active TOPROL XL 200 MG [id number] Take one by mouth daily METOPROLOL SUCCINATE 68652042948 Active Robbie Busby MD Active VENLAFAXINE HCL ER 150 MG [id number] Take one by mouth daily VENLAFAXINE HCL 81866106550 Active Robbie Busby MD Active LIPITOR 40 MG TABS Take one by mouth daily ATORVASTATIN CALCIUM 13434435968 Active Robbie Busby MD Active ISOSORBIDE DINITRATE 30 MG TABS Take one by mouth daily ISOSORBIDE DINITRATE 30 MG TABS 988770 ISOSORBIDE DINITRATE Inactive NORVASC 10 MG TAB 1 tablet by mouth daily NORVASC 10 MG TAB 032688 AMLODIPINE BESYLATE Inactive AZITHROMYCIN 250 MG ORAL TABS 2 tablets PO today---then, 1 tablet PO daily x 4 more days (and 1 optional refill) AZITHROMYCIN 250 MG ORAL TABS 7293854 AZITHROMYCIN Inactive CHERATUSSIN AC 100-10 MG/5ML ORAL SOLN 7.5 mL PO q 4-6 hrs PRN cough CHERATUSSIN AC 100-10 MG/5ML ORAL SOLN 004099 GUAIFENESIN- CODEINE Inactive VIIBRYD 40 MG TABS take 1 tab po qday for depression. VIIBRYD 40 MG TABS VILAZODONE HCL Inactive HYDRALAZINE HCL 25 MG TABS 1 tablet by mouth tid for hypertension HYDRALAZINE HCL 25 MG TABS 796334 HYDRALAZINE HCL Inactive SPIRONOLACTONE 50 MG TABS 1 tablet by mouth twice a day SPIRONOLACTONE 50 MG TABS 635482 SPIRONOLACTONE Inactive FENOFIBRATE 145 MG TABS Take one by mouth daily FENOFIBRATE 145 MG TABS 968429 FENOFIBRATE Inactive PROTONIX 40 MG SOLR 1 po qday for acid reflux PROTONIX 40 MG SOLR 372866 PANTOPRAZOLE SODIUM Inactive CEFDINIR 300 MG ORAL CAPS Take 1 cap po bid x 10 days CEFDINIR 300 MG ORAL CAPS 645087 CEFDINIR Inactive PREDNISONE 20 MG TAB 1 tablet twice daily for 2 days, then 1 tablet once daily for 2 days PREDNISONE 20 MG TAB 574816 PREDNISONE Inactive NYSTATIN 656486 UNIT/ML M/T SUSP 5mL po QID x 10 days NYSTATIN 062871 UNIT/ML M/T SUSP 698713 NYSTATIN Inactive BETADINE 10 % EXT SOLN wash with solution to treat follicultis BETADINE 10 % EXT SOLN 3430162 POVIDONE-IODINE Inactive TRILEPTAL 150 MG ORAL TABS 1 TAB PO Q HS TRILEPTAL 150 MG ORAL TABS 218834 OXCARBAZEPINE Inactive LAMISIL 125 MG ORAL PACK 1 TAB PO DAILY LAMISIL 125 MG ORAL PACK TERBINAFINE HCL Inactive HYDROCHLOROTHIAZIDE TABS Take one by mouth daily HYDROCHLOROTHIAZIDE TABS HYDROCHLOROTHIAZIDE TABS Inactive HYDROCODONE-ACETAMINOPHEN 5-325 MG TABS 1 tab by mouth BID prn back pain 2013 HYDROCODONE-ACETAMINOPHEN 5-325 MG TABS 020840 HYDROCODONE -ACETAMINOPHEN Inactive HYDRALAZINE HCL 50 MG ORAL TABS TWO BY MOUTH THREE TIMES DAILY HYDRALAZINE HCL 50 MG ORAL TABS 534475 HYDRALAZINE HCL Inactive LEVAQUIN 500 MG TAB 1 tablet by mouth daily for 7 days LEVAQUIN 500 MG TAB 238045 LEVOFLOXACIN Inactive SPIRONOLACTONE 25 MG TAB 4 tablets by mouth daily SPIRONOLACTONE 25 MG TAB 408581 SPIRONOLACTONE Inactive MECLIZINE HCL 25 MG TAB one 4 times a day as needed for dizziness MECLIZINE HCL 25 MG TAB 939906 MECLIZINE HCL Inactive CLONIDINE HCL 0.2 MG ORAL TABS 1 TAB BY MOUTH EVERY 8 HOURS 12/29 CLONIDINE HCL 0.2 MG ORAL TABS 214691 CLONIDINE HCL Inactive ZITHROMAX 250 MG TAB 2 po today, then 1 po q days 2-5 ZITHROMAX 250 MG TAB 3216532 AZITHROMYCIN Inactive TERBINAFINE HCL 250 MG TABS 1 tab po qday for foot infection 2014 TERBINAFINE HCL 250 MG TABS 002851 TERBINAFINE HCL Inactive KEFLEX 500 MG CAP 1 po TID x 10 days KEFLEX 500 MG CAP 759848 CEPHALEXIN Inactive BACTRIM DS 800-160 MG TAB 1 tab by mouth twice daily BACTRIM DS 800-160 MG TAB 945148 TRIMETHOPRIM-SULFAMETHOXAZOLE Inactive PREDNISONE 20 MG TAB take 3 tabs daily for 3 days, 2 tabs daily for 3 days, 1 tab daily for 3 days, 1/2 tab daily for 4 days PREDNISONE 20 MG TAB 462044 PREDNISONE Inactive Advance Directives Directive Description Start [...] Lab Report: CBC - Hematology mean corpuscular volume, RBC 90 fL 80-97 mean corpuscular hemoglobin, RBC 30.4 pg 27.0-31.2 mean corpuscular hemoglobin concentration, RBC 33.9 G/DL % 31.8- 35.4 red blood cell distribution width 15.4 % 11.6-14.8 platelet count 229 10^3/MM^3 10*3/mm3 973-156 7942/09/06 hematocrit, blood 42.4 % 41.0-53.0 hemoglobin, blood [...] % 11.0-15.0 platelet count 185 THOUSAND/UL 10*3/mm3 856-626 1102/04/14 mean platelet volume 10.9 fL 7.5-12.5 Lab Report: LIPID PANEL, TSH/899, T4, FREE/866 - Chemistry cholesterol, serum 220 mg/dL 199-911 1241/04/14 HDL cholesterol, serum 30 mg/dL > OR=40 triglyceride, serum, fasting 466 mg/dL <150 LDL cholesterol, serum SEE NOTE mg/dL (calc) mg/dL <130 cholesterol/HDL ratio, serum 7.3 (calc) < OR=5.0 Lab Report: MICROALB/CREAT W/RATIO - Chemistry albumin/creatinine ratio, urine < 30 mg/g mg/g{creat} 0-29 Lab Report: MICROALB/CREAT W/RATIO - Lab microalbumin, urine 80 0-19 Lab Report: VITAMIN D, 25-HYDROXY/02206 - Chemistry vitamin D 25-hydroxy, serum 23 ng/mL 30-100 Office Visit: Confusion, dizziness after fall - Basic LDL target level 130 mg/dL Office Visit: Confusion, dizziness after fall - Chemistry HDL cholesterol, serum, target level 40 mg/dL triglyceride, target level 150 mg/dL cholesterol, target level 200 mg/dL Encounters Code Encounter Date Provider Facility CPT-68214 Level 4 Est. Patient 11:56:16 CDT Erin Garsia [facility] CPT-71868 Level 3 Est. Patient 17:48:02 CDT Robbie Busby MD [facility] CPT-15255 Level 4 Est. Patient 12:00:49 INFORMATION SERVICES VICE PRESIDENT Rober Rodríguez [facility] CPT-61532 Level 3 Est. Patient 09:16:37 CDT Robbie Busby MD [facility] CPT-65712 Level 3 Est. Patient 19:38:43 CDT Robbie Busby MD [facility] CPT-71289 Level 3 Est. Patient 11:53:38 CDT Robbie Busby MD [facility] CPT-30807 Level 4 Est. Patient 12:52:22 CDT Rober Rodríguez [facility] CPT-46433 Level 4 Est. Patient 22:55:17 CDT Robbie Busby MD [facility] CPT-50072 Level 3 Est. Patient 12:38:24 CDT Desmond Diaz DO [facility] CPT-89161 Level 4 Est. Patient 11:25:03 INFORMATION SERVICES VICE PRESIDENT Robbie Busby MD [facility] CPT-35737 Level 4 Est. Patient 14:50:10 CDT Robbie Busby MD [facility] CPT-67514 Level 4 Est. Patient 23:30:43 CDT Robbie Busby MD [facility] CPT-44487 Level 4 Est. Patient 10:30:43 CDT Robbie Busby MD [facility] CPT-95060 Level 3 Est. Patient 17:08:12 CDT Alex Shaw [facility] CPT-99994 Level 4 Est. Patient 17:51:38 CDT Robbie Busby MD [facility] CPT-72871 Level 4 Est. Patient 14:00:21 CDT Robbie Busby MD [facility] CPT-36117 Level 4 Est. Patient 12:46:48 CDT Robbie Busby MD [facility] CPT-18287 Level 4 Est. Patient 13:34:33 CDT Robbie Busby MD [facility] CPT-78052 Level 4 Est. Patient 16:58:28 CDT Robbie Busby MD [facility] CPT-09240 Level 3 Est. Patient 19:36:53 CDT Alex Shaw [facility] CPT-72796 Level 3 Est. Patient 12:58:15 CDT Robbie Busby MD [facility] Procedures Code Procedure Name Date Entry Date Standard Description CPT-26321 First Vx - Ix admin for Medicare patients 16:32:53 CDT CPT-93741 Boostrix Intramuscular Suspension 5-2.5-18.5 16:32:53 CDT CPT-18559 TB Skin Test 11:42:28 CDT CPT-88502 Tdap 7yrs or > 11:42:28 CDT CPT-J0696 Rocephin 1000 mg (Ceftriaxone) 17:43:43 INFORMATION SERVICES VICE PRESIDENT CPT-J1040 Depo Medrol 80 mg (Methyl Prednisolone Acetate) 17:43: 43 INFORMATION SERVICES VICE PRESIDENT CPT-J1100 Decadron 8mg (Dexamethasone) 17:43:42 INFORMATION SERVICES VICE PRESIDENT CPT-16137 Abx/Therapy Injection 17:43:42 INFORMATION SERVICES VICE PRESIDENT CPT-65845 Abx/Therapy Injection 17:43:42 INFORMATION SERVICES VICE PRESIDENT CPT-J1040 Depo Medrol 80 mg (Methyl Prednisolone Acetate) 09:43: 34 INFORMATION SERVICES VICE PRESIDENT CPT-J1100 Decadron 8mg (Dexamethasone) 09:43:34 INFORMATION SERVICES VICE PRESIDENT CPT-J0696 Rocephin 1gm Inj Solr 09:43:34 INFORMATION SERVICES VICE PRESIDENT CPT-25732 Wound Culture - LAB USE ONLY 14:00:21 CDT CPT-I/D I/D Abscess 09:16:37 CDT CPT-69592 Venipuncture Draw Fee 15:20:23 CDT CPT-24773 Microalbumin - LAB USE ONLY 16:02:19 CDT CPT-60666 CBC - LAB USE ONLY 16:02:19 CDT CPT-25357 Venipuncture Draw Fee 16:02:19 CDT CPT-G0438 Initial Annual Wellness Exam 08:10:28 CDT CPT-14446 Venipuncture Draw Fee 13:07:17 CDT CPT-G0008 Administration of Influenza Virus Vaccine 16:09:59 CDT CPT-81802 Fluzone Quadrivalent Intramuscular Suspension 0.5 ML 16: 09:59 CDT CPT-40416 Spec Collection and Handling Fee 15:05:50 CDT
--- OUTSIDE RECORDS SUMMARY | 2018-04-18 12:28 | XMS REPORT | Clinical Summary ---
Author Author Admin, AKUA Organization [email or web address] Address Unknown Phone Unavailable Allergies, [...] stage III 585.3 Active Ca Garcia [facility] Chronic kidney disease, Stage III (moderate) C V A / Stroke Active Robbie Busby MD Myocardial Infarction: Active Robbie Busby MD Acute myocardial infarction, unspecified site, initial episode of care ( History of) Sleep apnea, chronic 780.57 Active Erin Garsia [employer] Unspecified sleep apnea Continuous positive airway pressure rx V46.2 Active Erin Garsia [employer] OPER[employer] Other dependence on machines, 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 Fatigue 780.79 Resolved Desmond Diaz DO Other malaise and fatigue Hypertension, secondary, 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 Desmond Diaz DO Other malignant secondary hypertension Tachycardia 785.0 Active Rober Rodríguez [employer]PER[employer] Tachycardia, unspecified Insect bite, infected 919.5 Resolved Desmond Diaz DO Insect bite, nonvenomous, of other, multiple, and unspecified sites, infected Abscess, skin 682.9 Resolved Desmond Diaz DO Cellulitis and abscess of unspecified sites URI 465.9 Resolved Desmond Diaz DO Acute upper respiratory infections of unspecified site Hypertension 401.9 Active Rober Rodríguez [employer] OPERATOR Unspecified essential hypertension Sinusitis - acute [...] Hypogonadism, low testosterone 257.2 Active Erin Garsia [employer] OPERATOR Other testicular hypofunction Low back pain, chronic 724.2 Active Robbie Busby MD Lumbago Bronchitis-Acute 466.0 Active Desmond Howell Joe DO Acute bronchitis Polydipsia 783.5 Active Desmond Dante Joe DO Polydipsia Sinusitis ICD-461.9 Inactive Emily Atwood [employer]AF [employer]ER 2017 Low back pain, acute ICD-724.2 Inactive Emily Atwood [employer] Low back pain, chronic ICD-724.2 Inactive Emily Atwood [employer] Bronchitis, acute ICD-466.0 Inactive Emily Atwood [employer] Onychomycosis, toenails ICD-110.1 Inactive Emily Atwood [employer] Dizziness ICD-780.4 Inactive Emily Atwood [employer]ER 2017 Folliculitis ICD-704.8 Inactive Emily Atwood [employer] Pharyngitis-Acute ICD-462 Inactive Emily Atwood [employer]ER Fatigue ICD-780.79 Inactive Emily Atwood [employer]ER 09/20 Hypertension, secondary, malignant ICD-405.09 Inactive Emily Atwood [employer] Insect bite, infected ICD-919.5 Inactive Emily Atwood [employer] RO[employer]ER Abscess, skin ICD-682.9 Inactive Emily Atwood [employer] LEAF RO[employer]ER URI ICD-465.9 Inactive Emily Atwood G[employer] LEAF ROLLER Sinusitis - acute ICD-461.9 Inactive Emily Atwood [employer] LEAF RO[employer]ER Acute confusion ICD-293.0 Inactive Emily Atwood [employer]ER Headache ICD-784.0 Inactive Emily Atwood [employer]AF [employer]ER 09/20 Back pain ICD-724.5 Inactive Emily Atwood [employer] LEAF ROLLER 2017 Rib pain, right sided ICD-786.50 Inactive Emily Atwood [employer] Myalgias ICD-729.1 Inactive Emily Atwood [employer] LEAF [employer]ER 09/20 URI ICD-465.9 Inactive Emily Atwood TANNA Medication List Medication Instructions Start Date Stop Date Generic Name NDC Status Provider Patient Instruction PREDNISONE 20 MG ORAL TABLET two tabs by mouth today, then one tab by mouth days two and three PREDNISONE 16732887424 Active Desmond Diaz DO Active AZITHROMYCIN 250 MG ORAL TABLET 2 po qd x 1 day, then 1 po qd x 4 days 09/20 AZITHROMYCIN 94027415010 Active Desmond Diaz DO Active TOPIRAMATE 50 MG ORAL TABLET take 1 tab po BID for migraines. TOPIRAMATE 66542729215 No Longer Active Desmond Diaz DO Active CYCLOBENZAPRINE HCL 10 MG ORAL TABLET 1 po TID PRN muscle spasm/pain for 10 days CYCLOBENZAPRINE HCL 24465625845 No Longer Active Desmond Diaz DO Active GUAIFENESIN ER 600 MG ORAL TABLET EXTENDED RELEASE 12 HOUR 1 tab po q am 2016 GUAIFENESIN 79348596900 No Longer Active Robbie Busby MD Active DIVALPROEX SODIUM ER 500 MG ORAL TABLET EXTENDED RELEASE 24 HOUR Once daily DIVALPROEX SODIUM 72822511321 Active Robbie Busby MD Active DEPO-TESTOSTERONE 200 MG/ML INTRAMUSCULAR SOLUTION 1 IM Injections every 2 weeks for low testosterone TESTOSTERONE CYPIONATE 74223936529 Active Zulema Blank LPN Active FLUTICASONE PROPIONATE 50 MCG/ACT NASAL SUSPENSION 2 sprays per nostril bid for 1 week, then 1 spray bid FLUTICASONE PROPIONATE 90539113470 Active Rober Rodríguez APRN Active HYDRALAZINE HCL 25 MG ORAL TABLET Take 1 tab BID. HYDRALAZINE HCL 20724932559 Active Rober Rodríguez APRN Active VITAMIN D3 00170 UNIT ORAL TABLET 2 po weekly CHOLECALCIFEROL 19373413400 Active Robbie Busby MD Active OXYCODONE HCL ER 10 MG ORAL TABLET ER 12 HOUR ABUSE-DETERRENT 1 tab po 3 times qd. OXYCODONE HCL 72000653161 Active Robbie Busby MD Active NITROSTAT 0.4 MG SUBLINGUAL TABLET SUBLINGUAL PRN NITROGLYCERIN 74413726808 No Longer Active Robbie Busby MD Active LORATADINE 10 MG ORAL TABLET 1 tablet by mouth daily for congestion and allergies. LORATADINE 64267413228 No Longer Active Robbie Busby MD Active FLONASE 50 MCG/ACT NASAL SUSPENSION 1 spray each nostril twice daily for allergies and runny nose FLUTICASONE PROPIONATE 37890252698 No Longer Active Robbie Busby MD Active FIORICET 50-300-40 MG ORAL CAPSULE take 1 tab po qday prn migraines. [id number] 63752718826 No Longer Active Robbie Busby MD Active VITAMIN D3 46459 UNIT ORAL CAPSULE 2 CAPS PO WEEKLY CHOLECALCIFEROL 87094610662 No Longer Active Robbie Bsuby MD Active CYCLOBENZAPRINE HCL 10 MG ORAL TABLET 1 tablet by mouth three times daily as needed for muscle spasm/pain for 10 days CYCLOBENZAPRINE HCL 89250066363 No Longer Active Robbie Busby MD Active PREDNISONE 20 MG ORAL TABLET take 3 tabs daily for 3 days, 2 tabs daily for 3 days, 1 tab daily for 3 days, 1/2 tab daily for 4 days PREDNISONE 27127462705 No Longer Active Erin Garsia APRN Active CLONIDINE HCL 0.2 MG ORAL TABLET 1 TAB BY MOUTH EVERY 8 HOURS CLONIDINE HCL 22258213389 No Longer Active Erin Garsia APRN Active MECLIZINE HCL 25 MG ORAL TABLET one 4 times a day as needed for dizziness MECLIZINE HCL 31090673976 No Longer Active Erin Garsia APRN Active SPIRONOLACTONE 25 MG ORAL TABLET 4 tablets by mouth daily SPIRONOLACTONE 99210911045 No Longer Active Erin Garsia APRN Active LEVAQUIN 500 MG ORAL TABLET 1 tablet by mouth daily for 7 days LEVOFLOXACIN 54879326117 No Longer Active Erin Garsia APRN Active BACTRIM DS 800-160 MG ORAL TABLET 1 tab by mouth twice daily 2015 TRIMETHOPRIM-SULFAMETHOXAZOLE 61190862025 No Longer Active Robbie Busby MD Active HYDRALAZINE HCL 50 MG ORAL TABLET TWO BY MOUTH THREE TIMES DAILY HYDRALAZINE HCL 97927760502 No Longer Active Jillina Frazell 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 HYDROCODONE-ACETAMINOPHEN 5-325 MG ORAL TABLET 1 tab by mouth BID prn back pain HYDROCODONE-ACETAMINOPHEN 76162662860 No Longer Active 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 HYDROCHLOROTHIAZIDE TABLET Take one by mouth daily HYDROCHLOROTHIAZIDE TABS 31794757796 No Longer Active Jillina Frazell 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 LAMISIL 125 MG ORAL PACKET 1 TAB PO DAILY TERBINAFINE HCL 51184449112 No Longer Active Jillina Frazell 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 TRILEPTAL 150 MG ORAL TABLET 1 TAB PO Q HS OXCARBAZEPINE 03897737620 No Longer Active Jillina Frazell 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 BETADINE 10 % EXTERNAL SOLUTION wash with solution to treat follicultis 07/29 POVIDONE-IODINE 45437456593 No Longer Active Jillina Frazell 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 NYSTATIN 096414 UNIT/ML MOUTH/THROAT SUSPENSION 5mL po QID x 10 days NYSTATIN 79451080950 No Longer Active Erin Garsia APRN Active PREDNISONE 20 MG ORAL TABLET 1 tablet twice daily for 2 days, then 1 tablet once daily for 2 days PREDNISONE 05133312462 No Longer Active Robbie Busby MD Active CEFDINIR 300 MG ORAL CAPSULE Take 1 cap po bid x 10 days CEFDINIR 67773728285 No Longer Active Robbie Busby MD Active AMLODIPINE BESYLATE 10 MG ORAL TABLET 1 tablet by mouth daily AMLODIPINE BESYLATE 31915262537 Active Robbie Busby MD Active CARVEDILOL 25 MG ORAL TABLET 1 & 1/2 TAB po BID CARVEDILOL 06875931095 Active Robbie Busby MD Active NEXIUM 40 MG ORAL CAPSULE DELAYED RELEASE 1 cap by mouth daily ESOMEPRAZOLE MAGNESIUM 32760471273 Active Robbie Busby MD Active PROTONIX 40 MG INTRAVENOUS SOLUTION RECONSTITUTED 1 po qday for acid reflux PANTOPRAZOLE SODIUM 59289344670 No Longer Active Galileonila Negro Active KEFLEX 500 MG ORAL CAPSULE 1 po TID x 10 days CEPHALEXIN 28331957078 No Longer Active Robbie Busby MD Active TEMAZEPAM 15 MG ORAL CAPSULE 1 TAB PO Q HS TEMAZEPAM 69207187539 Active Robbie Busby MD Active ALPRAZOLAM 2 MG ORAL TABLET 1 TAB PO BID ALPRAZOLAM 02028448913 Active Robbie Busby MD Active FENOFIBRATE 145 MG ORAL TABLET Take one by mouth daily FENOFIBRATE 65925356440 No Longer Active Robbie Busby MD Active SPIRONOLACTONE 50 MG ORAL TABLET 1 tablet by mouth twice a day SPIRONOLACTONE 95068034562 No Longer Active Robbie Busby MD Active HYDRALAZINE HCL 25 MG ORAL TABLET 1 tablet by mouth tid for hypertension 2013 HYDRALAZINE HCL 19067099310 No Longer Active Robbie Busby MD Active VIIBRYD 40 MG ORAL TABLET take 1 tab po qday for depression. 2014 VILAZODONE HCL 16356926555 No Longer Active Robbie Busby MD Active TERBINAFINE HCL 250 MG ORAL TABLET 1 tab po qday for foot infection TERBINAFINE HCL 58693531851 No Longer Active Robbie Busby MD Active GABAPENTIN 300 MG ORAL CAPSULE 1 po q hs for nerve pain GABAPENTIN 30930284658 Active Robbie Busby MD Active CHERATUSSIN AC 100-10 MG/5ML ORAL SOLUTION 7.5 mL PO q 4-6 hrs PRN cough 2014 GUAIFENESIN-CODEINE 64483115395 No Longer Active Robbie Busby MD Active AZITHROMYCIN 250 MG ORAL TABLET 2 tablets PO today---then, 1 tablet PO daily x 4 more days (and 1 optional refill) AZITHROMYCIN 75305188598 No Longer Active Robbie Busby MD Active NORVASC 10 MG ORAL TABLET 1 tablet by mouth daily AMLODIPINE BESYLATE 53590625560 No Longer Active Alex ALVAREZ Active IMDUR 60 MG ORAL TABLET EXTENDED RELEASE 24 HOUR take 1 tab po qday for blood pressure ISOSORBIDE MONONITRATE 55329885595 Active Robbie Busby MD Active ISOSORBIDE DINITRATE 30 MG ORAL TABLET Take one by mouth daily ISOSORBIDE DINITRATE 06188826916 No Longer Active Robbie Busby MD Active VIIBRYD 40 MG ORAL TABLET 1 TA B PO DAILY VILAZODONE HCL 69596887757 Active Robbie Busby MD Active ZITHROMAX 250 MG ORAL TABLET 2 po today, then 1 po q days 2-5 AZITHROMYCIN 65220860518 No Longer Active Robbie Busby MD Active [id number] 0.3 MG/24HR TRANSDERMAL PATCH WEEKLY apply 2 patches q week for HTN CLONIDINE HCL 21816085330 Active Robbie Busby MD Active DOXAZOSIN MESYLATE 4 MG ORAL TABLET Take one by mouth daily DOXAZOSIN MESYLATE 43051554416 Active Robbie Busby MD Active TOPROL XL 200 MG ORAL TABLET EXTENDED RELEASE 24 HOUR Take one by mouth daily METOPROLOL SUCCINATE 76811529168 Active Robbie Busby MD Active VENLAFAXINE HCL ER 150 MG ORAL TABLET EXTENDED RELEASE 24 HOUR Take one by mouth daily VENLAFAXINE HCL 27511830896 Active Robbie Busby MD Active LIPITOR 40 MG ORAL TABLET Take one by mouth daily ATORVASTATIN CALCIUM 88403350637 Active Robbie Busby MD Active ISOSORBIDE DINITRATE 30 MG ORAL TABLET Take one by mouth daily ISOSORBIDE DINITRATE 30 MG ORAL TABLET 896820 ISOSORBIDE DINITRATE Inactive NORVASC 10 MG ORAL TABLET 1 tablet by mouth daily NORVASC 10 MG ORAL TABLET 591362 AMLODIPINE BESYLATE Inactive AZITHROMYCIN 250 MG ORAL TABLET 2 tablets PO today---then, 1 tablet PO daily x 4 more days (and 1 optional refill) AZITHROMYCIN 250 MG ORAL TABLET 754705 AZITHROMYCIN Inactive CHERATUSSIN AC 100-10 MG/5ML ORAL SOLUTION 7.5 mL PO q 4-6 hrs PRN cough 2014 CHERATUSSIN AC 100-10 MG/5ML ORAL SOLUTION 750415 GUAIFENESIN-CODEINE Inactive VIIBRYD 40 MG ORAL TABLET take 1 tab po qday for depression. 2014 VIIBRYD 40 MG ORAL TABLET VILAZODONE HCL Inactive HYDRALAZINE HCL 25 MG ORAL TABLET 1 tablet by mouth tid for hypertension 2013 HYDRALAZINE HCL 25 MG ORAL TABLET 980280 HYDRALAZINE HCL Inactive SPIRONOLACTONE 50 MG ORAL TABLET 1 tablet by mouth twice a day SPIRONOLACTONE 50 MG ORAL TABLET 027689 SPIRONOLACTONE Inactive FENOFIBRATE 145 MG ORAL TABLET Take one by mouth daily FENOFIBRATE 145 MG ORAL TABLET 683431 FENOFIBRATE Inactive PROTONIX 40 MG INTRAVENOUS SOLUTION RECONSTITUTED 1 po qday for acid reflux PROTONIX 40 MG INTRAVENOUS SOLUTION RECONSTITUTED 891928 PANTOPRAZOLE SODIUM Inactive CEFDINIR 300 MG ORAL CAPSULE Take 1 cap po bid x 10 days CEFDINIR 300 MG ORAL CAPSULE 534194 CEFDINIR Inactive PREDNISONE 20 MG ORAL TABLET 1 tablet twice daily for 2 days, then 1 tablet once daily for 2 days PREDNISONE 20 MG ORAL TABLET 240905 PREDNISONE Inactive NYSTATIN 415634 UNIT/ML MOUTH/THROAT SUSPENSION 5mL po QID x 10 days NYSTATIN 643329 UNIT/ML MOUTH/THROAT SUSPENSION 997219 NYSTATIN Inactive BETADINE 10 % EXTERNAL SOLUTION wash with solution to treat follicultis 07/29 BETADINE 10 % EXTERNAL SOLUTION 2454966 POVIDONE-IODINE Inactive TRILEPTAL 150 MG ORAL TABLET 1 TAB PO Q HS TRILEPTAL 150 MG ORAL TABLET 690659 OXCARBAZEPINE Inactive LAMISIL 125 MG ORAL PACKET 1 TAB PO DAILY LAMISIL 125 MG ORAL PACKET TERBINAFINE HCL Inactive HYDROCHLOROTHIAZIDE TABLET Take one by mouth daily HYDROCHLOROTHIAZIDE TABLET HYDROCHLOROTHIAZIDE TABS Inactive HYDROCODONE-ACETAMINOPHEN 5-325 MG ORAL TABLET 1 tab by mouth BID prn back pain HYDROCODONE-ACETAMINOPHEN 5-325 MG ORAL TABLET 792680 HYDROCODONE-ACETAMINOPHEN Inactive HYDRALAZINE HCL 50 MG ORAL TABLET TWO BY MOUTH THREE TIMES DAILY HYDRALAZINE HCL 50 MG ORAL TABLET 356647 HYDRALAZINE HCL Inactive LEVAQUIN 500 MG ORAL TABLET 1 tablet by mouth daily for 7 days LEVAQUIN 500 MG ORAL TABLET 431227 LEVOFLOXACIN Inactive SPIRONOLACTONE 25 MG ORAL TABLET 4 tablets by mouth daily SPIRONOLACTONE 25 MG ORAL TABLET 270733 SPIRONOLACTONE Inactive MECLIZINE HCL 25 MG ORAL TABLET one 4 times a day as needed for dizziness MECLIZINE HCL 25 MG ORAL TABLET 320105 MECLIZINE HCL Inactive CLONIDINE HCL 0.2 MG ORAL TABLET 1 TAB BY MOUTH EVERY 8 HOURS CLONIDINE HCL 0.2 MG ORAL TABLET 796155 CLONIDINE HCL Inactive CYCLOBENZAPRINE HCL 10 MG ORAL TABLET 1 tablet by mouth three times daily as needed for muscle spasm/pain for 10 days CYCLOBENZAPRINE HCL 10 MG ORAL TABLET 897504 CYCLOBENZAPRINE HCL Inactive VITAMIN D3 01255 UNIT ORAL CAPSULE 2 CAPS PO WEEKLY VITAMIN D3 84405 UNIT ORAL CAPSULE CHOLECALCIFEROL Inactive FIORICET 50-300-40 MG ORAL CAPSULE take 1 tab po qday prn migraines. FIORICET 50-300-40 MG ORAL CAPSULE 967775 BUTALBITAL-APAP- CAFFEINE Inactive FLONASE 50 MCG/ACT NASAL SUSPENSION 1 spray each nostril twice daily for allergies and runny nose FLONASE 50 MCG/ACT NASAL SUSPENSION 6249203 FLUTICASONE PROPIONATE Inactive LORATADINE 10 MG ORAL TABLET 1 tablet by mouth daily for congestion and allergies. LORATADINE 10 MG ORAL TABLET 756814 LORATADINE Inactive NITROSTAT 0.4 MG SUBLINGUAL TABLET SUBLINGUAL PRN NITROSTAT 0.4 MG SUBLINGUAL TABLET SUBLINGUAL 330172 NITROGLYCERIN Inactive GUAIFENESIN ER 600 MG ORAL TABLET EXTENDED RELEASE 12 HOUR 1 tab po q am 2016 GUAIFENESIN ER 600 MG ORAL TABLET EXTENDED RELEASE 12 HOUR GUAIFENESIN Inactive CYCLOBENZAPRINE HCL 10 MG ORAL TABLET 1 po TID PRN muscle spasm/pain for 10 days CYCLOBENZAPRINE HCL 10 MG ORAL TABLET 202164 CYCLOBENZAPRINE HCL Inactive TOPIRAMATE 50 MG ORAL TABLET take 1 tab po BID for migraines. TOPIRAMATE 50 MG ORAL TABLET 148323 TOPIRAMATE Inactive ZITHROMAX 250 MG ORAL TABLET 2 po today, then 1 po q days 2-5 ZITHROMAX 250 MG ORAL TABLET 494768 AZITHROMYCIN Inactive TERBINAFINE HCL 250 MG ORAL TABLET 1 tab po qday for foot infection TERBINAFINE HCL 250 MG ORAL TABLET 464164 TERBINAFINE HCL Inactive KEFLEX 500 MG ORAL CAPSULE 1 po TID x 10 days KEFLEX 500 MG ORAL CAPSULE 587026 CEPHALEXIN Inactive BACTRIM DS 800-160 MG ORAL TABLET 1 tab by mouth twice daily 2015 BACTRIM DS 800-160 MG ORAL TABLET 677355 TRIMETHOPRIM- SULFAMETHOXAZOLE Inactive PREDNISONE 20 MG ORAL TABLET take 3 tabs daily for 3 days, 2 tabs daily for 3 days, 1 tab daily for 3 days, 1/2 tab daily for 4 days PREDNISONE 20 MG ORAL TABLET 363740 PREDNISONE Inactive Advance Directives Directive Description Start [...] AUTO - Chemistry sodium, serum 142 mmol/L 606-086 7180/07/17 carbon dioxide, venous blood 28.2 mmol/L 21.0-32.0 [...] % 11.0-15.0 platelet count 185 THOUSAND/UL 10*3/mm3 810-125 1238/04/14 mean platelet volume 10.9 fL 7.5-12.5 Lab Report: HGBA1C, Basic Metabolic Panel - Chemistry hemoglobin A1C, blood, as % of total hemoglobin 6.9 % 4.3-6.0 sodium, serum 139 mmol/L 066-414 2383/01/04 potassium, serum 3.9 mmol/L 3.5-5.2 chloride, serum 103 mmol/L 98-107 carbon dioxide, venous blood 26.9 mmol/L 21.0-32.0 blood glucose 106 mg/dL 65-110 calcium, serum 9.0 mg/dL 8.5-10.1 urea nitrogen, blood 20 mg/dL 7-18 creatinine, serum 1.46 mg/dL 0.60-1.30 Lab Report: LIPID PANEL, TSH/899, T4, FREE/866 - Chemistry cholesterol, serum 220 mg/dL 206-960 8662/04/14 HDL cholesterol, serum 30 mg/dL > OR=40 [...] 1.80 ng/mL 0.00-4.00 Lab Report: VITAMIN D, 25-HYDROXY/47435 - Chemistry vitamin D 25-hydroxy, serum 25 ng/mL 30-100 Office Visit: Confusion, dizziness after fall - Basic LDL target level 130 mg/dL Office Visit: Confusion, dizziness after fall - Chemistry HDL cholesterol, serum, target level 40 mg/dL triglyceride, target level 150 mg/dL cholesterol, target level 200 mg/dL Encounters Code Encounter Date Provider Facility CPT-31336 Level 4 Est. Patient 15:23:44 PROMOTIONS DIRECTOR Desmond Diaz DO [facility] CPT-54561 Level 3 Est. Patient 15:40:49 CDT Robbie Busby MD [facility] CPT-26405 Level 4 Est. Patient 15:18:19 CDT Robbie Busby MD [facility] CPT-47723 Level 3 Est. Patient 09:00:37 CDT Rober Rodríguez [facility] CPT-12677 Level 3 Est. Patient 16:07:10 CDT Robbie Busby MD [facility] CPT-04465 Level 4 Est. Patient 11:56:16 CDT Erin Garsia [facility] CPT-34737 Level 3 Est. Patient 17:48:02 CDT Robbie Busby MD [facility] CPT-32010 Level 4 Est. Patient 12:00:49 PROMOTIONS DIRECTOR Rober Rodríguez [facility] CPT-98429 Level 3 Est. Patient 09:16:37 CDT Robbie Busby MD [facility] CPT-30278 Level 3 Est. Patient 19:38:43 CDT Robbie Busby MD [facility] CPT-78574 Level 3 Est. Patient 11:53:38 CDT Robbie Busby MD [facility] CPT-82037 Level 4 Est. Patient 12:52:22 CDT Rober Rodríguez [facility] CPT-99373 Level 4 Est. Patient 22:55:17 CDT Robbie Busby MD [facility] CPT-79410 Level 3 Est. Patient 12:38:24 CDT Desmond Diaz DO [facility] CPT-51083 Level 4 Est. Patient 11:25:03 PROMOTIONS DIRECTOR Robbie Busby MD [facility] CPT-64304 Level 4 Est. Patient 14:50:10 CDT Robbie Busby MD [facility] CPT-85446 Level 4 Est. Patient 23:30:43 CDT Robbie Busby MD [facility] CPT-39807 Level 4 Est. Patient 10:30:43 CDT Robbie Busby MD [facility] CPT-09146 Level 3 Est. Patient 17:08:12 CDT [facility] CPT-76684 Level 4 Est. Patient 17:51:38 CDT Robbie Busby MD [facility] CPT-87748 Level 4 Est. Patient 14:00:21 CDT Robbie Busby MD [facility] CPT-99137 Level 4 Est. Patient 12:46:48 CDT Robbie Busby MD [facility] CPT-45076 Level 4 Est. Patient 13:34:33 CDT Robbie Busby MD [facility] CPT-80239 Level 4 Est. Patient 16:58:28 CDT Robbie Busby MD [facility] CPT-33016 Level 3 Est. Patient 19:36:53 CDT [facility] CPT-52091 Level 3 Est. Patient 12:58:15 CDT Robbie Busby MD [facility] Procedures Code Procedure Name Date Entry Date Standard Description CPT-J1071 Depo Testosterone 200mg 09:38:36 PROMOTIONS DIRECTOR CPT-72237 Abx/Therapy Injection 09:38:36 PROMOTIONS DIRECTOR CPT-J1071 Depo Testosterone 200mg 10:22:56 PROMOTIONS DIRECTOR CPT-56715 Abx/Therapy Injection 10:22:56 PROMOTIONS DIRECTOR CPT-J1071 Depo Testosterone 200mg 15:40:23 CDT CPT-39656 Abx/Therapy Injection 15:40:23 CDT CPT-J1071 Depo Testosterone 200mg 14:20:43 CDT CPT-78409 Abx/Therapy Injection 14:20:43 CDT CPT-J1071 Depo Testosterone 200mg 14:17:22 CDT CPT-95979 Abx/Therapy Injection 14:17:22 CDT CPT-J1071 Depo Testosterone 200mg 09:03:53 CDT CPT-64500 Abx/Therapy Injection 09:03:53 CDT CPT-G0439 [facility] Annual Wellness Exam 16:47:44 CDT CPT-J1071 Depo Testosterone 200mg 09:06:28 CDT CPT-83263 Abx/Therapy Injection 09:06:28 CDT CPT-J1071 Depo Testosterone 200mg 08:30:01 CDT CPT-10540 Abx/Therapy Injection 08:30:01 CDT CPT-J1071 Depo Testosterone 200mg 08:24:00 CDT CPT-86180 Abx/Therapy Injection 08:24:00 CDT CPT-52593 Venipuncture Draw Fee 14:39:06 CDT CPT-39485 Ribs unilateral 2V - XRAY USE ONLY 12:10:11 CDT CPT-52206 First Vx - Ix admin for Medicare patients 16:32:53 CDT CPT-57503 Boostrix Intramuscular Suspension 5-2.5-18.5 16:32:53 CDT CPT-05737 TB Skin Test 11:42:28 CDT CPT-16533 Tdap 7yrs or > 11:42:28 CDT CPT-J0696 Rocephin 1000 mg (Ceftriaxone) 17:43:43 PROMOTIONS DIRECTOR CPT-J1040 Depo Medrol 80 mg (Methyl Prednisolone Acetate) 17:43: 43 PROMOTIONS DIRECTOR CPT-J1100 Decadron 8mg (Dexamethasone) 17:43:42 PROMOTIONS DIRECTOR CPT-56597 Abx/Therapy Injection 17:43:42 PROMOTIONS DIRECTOR CPT-55573 Abx/Therapy Injection 17:43:42 PROMOTIONS DIRECTOR CPT-J1040 Depo Medrol 80 mg (Methyl Prednisolone Acetate) 09:43: 34 PROMOTIONS DIRECTOR CPT-J1100 Decadron 8mg (Dexamethasone) 09:43:34 PROMOTIONS DIRECTOR CPT-J0696 Rocephin 1gm Inj Solr 09:43:34 PROMOTIONS DIRECTOR CPT-93866 Wound Culture - LAB USE ONLY 14:00:21 CDT CPT-I/D I/D Abscess 09:16:37 CDT CPT-36036 Venipuncture Draw Fee 15:20:23 CDT CPT-23997 Microalbumin - LAB USE ONLY 16:02:19 CDT CPT-51118 CBC - LAB USE ONLY 16:02:19 CDT CPT-29724 Venipuncture Draw Fee 16:02:19 CDT CPT-G0438 Initial Annual Wellness Exam 08:10:28 CDT CPT-96608 Venipuncture Draw Fee 13:07:17 CDT CPT-G0008 Administration of Influenza Virus Vaccine 16:09:59 CDT CPT-51131 Fluzone Quadrivalent Intramuscular Suspension 0.5 ML 16: 09:59 CDT CPT-97461 Spec Collection and Handling Fee 15:05:50 CDT
--- OUTSIDE RECORDS SUMMARY | 2018-04-18 12:29 | XMS REPORT | Clinical Summary ---
Author Author Admin, [facility] Organization [facility] Address Unknown Phone Unavailable Allergies, [...] unspecified sites URI 465.9 Active Rober Rodríguez FITNESS ASSISTANT Acute upper respiratory infections of unspecified site [...] 2 weeks for low testosterone TESTOSTERONE CYPIONATE 19591928449 Active Zulema Blank LPN Active CYCLOBENZAPRINE HCL 10 MG ORAL TABS 1 po TID PRN muscle spasm/pain for 10 days CYCLOBENZAPRINE HCL 87194447164 Active JONATHAN Moncada Active GUAIFENESIN 600 MG [id number] 1 tab po q am GUAIFENESIN 17564551716 Active Rober Rodríguez FITNESS ASSISTANT Active FLUTICASONE PROPIONATE 50 MCG/ACT SUSP 2 sprays per nostril bid for 1 week, then 1 spray bid FLUTICASONE PROPIONATE 63157237450 Active Jillina Anne GONZALEZN Active HYDRALAZINE HCL 25 MG ORAL TABS Take 1 tab BID. HYDRALAZINE HCL 68975953460 Active Jillina Anne GONZALEZN Active VITAMIN D3 79828 UNIT ORAL TABS 2 po weekly CHOLECALCIFEROL 19770818835 Active Robbie Busby MD Active OXYCODONE HCL ER 10 MG ORAL T12A 1 tab po 3 times qd. OXYCODONE HCL 00952814901 Active Robbie Busby MD Active NITROSTAT 0.4 MG SUBL PRN NITROGLYCERIN 04332547396 No Longer Active Robbie Busby MD Active LORATADINE 10 MG TABS 1 tablet by mouth daily for congestion and allergies. LORATADINE 65790260717 No Longer Active Robbie Busby MD Active FLONASE 50 MCG/ACT SUSP 1 spray each nostril twice daily for allergies and runny nose FLUTICASONE PROPIONATE 40954655835 No Longer Active Robbie Busby MD Active FIORICET 50-300-40 MG ORAL CAPS take 1 tab po qday prn migraines. [id number] 67841254902 No Longer Active Robbie Busby MD Active VITAMIN D3 17430 UNIT CAPS 2 CAPS PO WEEKLY CHOLECALCIFEROL 35809678420 No Longer Active Robbie Busby MD Active CYCLOBENZAPRINE HCL 10 MG TABS 1 tablet by mouth three times daily as needed for muscle spasm/pain for 10 days CYCLOBENZAPRINE HCL 83650018860 No Longer Active Robbie Busby MD Active PREDNISONE 20 MG TAB take 3 tabs daily for 3 days, 2 tabs daily for 3 days, 1 tab daily for 3 days, 1/2 tab daily for 4 days PREDNISONE 13811349807 No Longer Active Erin Garsia APRN Active CLONIDINE HCL 0.2 MG ORAL TABS 1 TAB BY MOUTH EVERY 8 HOURS 12/29 CLONIDINE HCL 53998152987 No Longer Active Erin Garsia APRN Active MECLIZINE HCL 25 MG TAB one 4 times a day as needed for dizziness MECLIZINE HCL 68579842784 No Longer Active Erin Garsia APRN Active SPIRONOLACTONE 25 MG TAB 4 tablets by mouth daily SPIRONOLACTONE 60078905557 No Longer Active Erin Garsia APRN Active LEVAQUIN 500 MG TAB 1 tablet by mouth daily for 7 days LEVOFLOXACIN 77191171621 No Longer Active Erin Garsia APRN Active BACTRIM DS 800-160 MG TAB 1 tab by mouth twice daily TRIMETHOPRIM-SULFAMETHOXAZOLE 07529305928 No Longer Active Robbie Busby MD Active HYDRALAZINE HCL 50 MG ORAL TABS TWO BY MOUTH THREE TIMES DAILY HYDRALAZINE HCL 02257772200 No Longer Active Jillina Frazell FITNESS ASSISTANT Active HYDROCODONE-ACETAMINOPHEN 5-325 MG TABS 1 tab by mouth BID prn back pain 2013 HYDROCODONE-ACETAMINOPHEN 12249827093 No Longer Active Jillina Frazell FITNESS ASSISTANT Active HYDROCHLOROTHIAZIDE TABS Take one by mouth daily HYDROCHLOROTHIAZIDE TABS 76128198838 No Longer Active Jillina Frazell FITNESS ASSISTANT Active LAMISIL 125 MG ORAL PACK 1 TAB PO DAILY TERBINAFINE HCL 29193552196 No Longer Active Jillina Frazell FITNESS ASSISTANT Active TRILEPTAL 150 MG ORAL TABS 1 TAB PO Q HS OXCARBAZEPINE 32752687284 No Longer Active Jillina Frazell FITNESS ASSISTANT Active BETADINE 10 % EXT SOLN wash with solution to treat follicultis POVIDONE-IODINE 77112745124 No Longer Active Jillina Frazell FITNESS ASSISTANT Active NYSTATIN 590457 UNIT/ML M/T SUSP 5mL po QID x 10 days NYSTATIN 21682986729 No Longer Active Erin Garsia APRN Active PREDNISONE 20 MG TAB 1 tablet twice daily for 2 days, then 1 tablet once daily for 2 days PREDNISONE 26301151593 No Longer Active Robbie Busby MD Active CEFDINIR 300 MG ORAL CAPS Take 1 cap po bid x 10 days CEFDINIR 25372917612 No Longer Active Robbie Busby MD Active AMLODIPINE BESYLATE 10 MG TABS 1 tablet by mouth daily AMLODIPINE BESYLATE 68382658429 Active Robbie Busby MD Active CARVEDILOL 25 MG TABS 1 & 1/2 TAB po BID CARVEDILOL 94368883599 Active Robbie Busby MD Active NEXIUM 40 MG CPDR 1 cap by mouth daily ESOMEPRAZOLE MAGNESIUM 07173507393 Active Robbie Busby MD Active PROTONIX 40 MG SOLR 1 po qday for acid reflux PANTOPRAZOLE SODIUM 54122237091 No Longer Active Gali Raida Active KEFLEX 500 MG CAP 1 po TID x 10 days CEPHALEXIN 11194965431 No Longer Active Robbie Busby MD Active TOPIRAMATE 50 MG ORAL TABS take 1 tab po BID for migraines. TOPIRAMATE 68725369134 Active Robbie Busby MD Active TEMAZEPAM 15 MG ORAL CAPS 1 TAB PO Q HS TEMAZEPAM 99231937649 Active Robbie Busby MD Active ALPRAZOLAM 2 MG ORAL TABS 1 TAB PO BID ALPRAZOLAM 33293958494 Active Robbie Busby MD Active FENOFIBRATE 145 MG TABS Take one by mouth daily FENOFIBRATE 98015254461 No Longer Active Robbie Busby MD Active SPIRONOLACTONE 50 MG TABS 1 tablet by mouth twice a day SPIRONOLACTONE 74718996486 No Longer Active Robbie Busby MD Active HYDRALAZINE HCL 25 MG TABS 1 tablet by mouth tid for hypertension HYDRALAZINE HCL 20432660634 No Longer Active Robbie Busby MD Active VIIBRYD 40 MG TABS take 1 tab po qday for depression. VILAZODONE HCL 10471713760 No Longer Active Robbie Busby MD Active TERBINAFINE HCL 250 MG TABS 1 tab po qday for foot infection 2014 TERBINAFINE HCL 09499400101 No Longer Active Robbie Busby MD Active GABAPENTIN 300 MG CAPS 1 po q hs for nerve pain GABAPENTIN 62388685942 Active Robbie Busby MD Active CHERATUSSIN AC 100-10 MG/5ML ORAL SOLN 7.5 mL PO q 4-6 hrs PRN cough GUAIFENESIN-CODEINE 86696537946 No Longer Active Robbie Busby MD Active AZITHROMYCIN 250 MG ORAL TABS 2 tablets PO today---then, 1 tablet PO daily x 4 more days (and 1 optional refill) AZITHROMYCIN 33415837423 No Longer Active Robbie Busby MD Active NORVASC 10 MG TAB 1 tablet by mouth daily AMLODIPINE BESYLATE 01203850607 No Longer Active Alex ALVAREZ Active IMDUR 60 MG TAB CR take 1 tab po qday for blood pressure ISOSORBIDE MONONITRATE Active Robbie Busby MD Active ISOSORBIDE DINITRATE 30 MG TABS Take one by mouth daily ISOSORBIDE DINITRATE 68053895231 No Longer Active Robbie Busby MD Active VIIBRYD 40 MG TABS 1 TA B PO DAILY VILAZODONE HCL 55785027129 Active Robbie Busby MD Active ZITHROMAX 250 MG TAB 2 po today, then 1 po q days 2-5 AZITHROMYCIN 56715346032 No Longer Active Robbie Busby MD Active [id number]-5 0.3 MG/24HR PTWK apply 2 patches q week for HTN CLONIDINE HCL 83298344788 Active Robbie Busby MD Active DOXAZOSIN MESYLATE 4 MG TABS Take one by mouth daily DOXAZOSIN MESYLATE 93467065894 Active Robbie Busby MD Active TOPROL XL 200 MG [id number]-ARR Take one by mouth daily METOPROLOL SUCCINATE 47311864095 Active Robbie Busby MD Active VENLAFAXINE HCL ER 150 MG [id number]-WEB Take one by mouth daily VENLAFAXINE HCL 20436815040 Active Robbie Busby MD Active LIPITOR 40 MG TABS Take one by mouth daily ATORVASTATIN CALCIUM 30088989811 Active Robbie Busby MD Active ISOSORBIDE DINITRATE 30 MG TABS Take one by mouth daily ISOSORBIDE DINITRATE 30 MG TABS 918663 ISOSORBIDE DINITRATE Inactive NORVASC 10 MG TAB 1 tablet by mouth daily NORVASC 10 MG TAB 977787 AMLODIPINE BESYLATE Inactive AZITHROMYCIN 250 MG ORAL TABS 2 tablets PO today---then, 1 tablet PO daily x 4 more days (and 1 optional refill) AZITHROMYCIN 250 MG ORAL TABS 8368370 AZITHROMYCIN Inactive CHERATUSSIN AC 100-10 MG/5ML ORAL SOLN 7.5 mL PO q 4-6 hrs PRN cough CHERATUSSIN AC 100-10 MG/5ML ORAL SOLN 904855 GUAIFENESIN- CODEINE Inactive VIIBRYD 40 MG TABS take 1 tab po qday for depression. VIIBRYD 40 MG TABS VILAZODONE HCL Inactive HYDRALAZINE HCL 25 MG TABS 1 tablet by mouth tid for hypertension HYDRALAZINE HCL 25 MG TABS 174311 HYDRALAZINE HCL Inactive SPIRONOLACTONE 50 MG TABS 1 tablet by mouth twice a day SPIRONOLACTONE 50 MG TABS 383287 SPIRONOLACTONE Inactive FENOFIBRATE 145 MG TABS Take one by mouth daily FENOFIBRATE 145 MG TABS 157734 FENOFIBRATE Inactive PROTONIX 40 MG SOLR 1 po qday for acid reflux PROTONIX 40 MG SOLR 133986 PANTOPRAZOLE SODIUM Inactive CEFDINIR 300 MG ORAL CAPS Take 1 cap po bid x 10 days CEFDINIR 300 MG ORAL CAPS 128318 CEFDINIR Inactive PREDNISONE 20 MG TAB 1 tablet twice daily for 2 days, then 1 tablet once daily for 2 days PREDNISONE 20 MG TAB 187341 PREDNISONE Inactive NYSTATIN 785615 UNIT/ML M/T SUSP 5mL po QID x 10 days NYSTATIN 933153 UNIT/ML M/T SUSP 970080 NYSTATIN Inactive BETADINE 10 % EXT SOLN wash with solution to treat follicultis BETADINE 10 % EXT SOLN 8828159 POVIDONE-IODINE Inactive TRILEPTAL 150 MG ORAL TABS 1 TAB PO Q HS TRILEPTAL 150 MG ORAL TABS 680720 OXCARBAZEPINE Inactive LAMISIL 125 MG ORAL PACK 1 TAB PO DAILY LAMISIL 125 MG ORAL PACK TERBINAFINE HCL Inactive HYDROCHLOROTHIAZIDE TABS Take one by mouth daily HYDROCHLOROTHIAZIDE TABS HYDROCHLOROTHIAZIDE TABS Inactive HYDROCODONE-ACETAMINOPHEN 5-325 MG TABS 1 tab by mouth BID prn back pain 2013 HYDROCODONE-ACETAMINOPHEN 5-325 MG TABS 090310 HYDROCODONE -ACETAMINOPHEN Inactive HYDRALAZINE HCL 50 MG ORAL TABS TWO BY MOUTH THREE TIMES DAILY HYDRALAZINE HCL 50 MG ORAL TABS 166531 HYDRALAZINE HCL Inactive LEVAQUIN 500 MG TAB 1 tablet by mouth daily for 7 days LEVAQUIN 500 MG TAB 080708 LEVOFLOXACIN Inactive SPIRONOLACTONE 25 MG TAB 4 tablets by mouth daily SPIRONOLACTONE 25 MG TAB 773000 SPIRONOLACTONE Inactive MECLIZINE HCL 25 MG TAB one 4 times a day as needed for dizziness MECLIZINE HCL 25 MG TAB 868938 MECLIZINE HCL Inactive CLONIDINE HCL 0.2 MG ORAL TABS 1 TAB BY MOUTH EVERY 8 HOURS 12/29 CLONIDINE HCL 0.2 MG ORAL TABS 015930 CLONIDINE HCL Inactive CYCLOBENZAPRINE HCL 10 MG TABS 1 tablet by mouth three times daily as needed for muscle spasm/pain for 10 days CYCLOBENZAPRINE HCL 10 MG TABS 897410 CYCLOBENZAPRINE HCL Inactive VITAMIN D3 26702 UNIT CAPS 2 CAPS PO WEEKLY VITAMIN D3 17681 UNIT CAPS CHOLECALCIFEROL Inactive FIORICET 50-300-40 MG ORAL CAPS take 1 tab po qday prn migraines. FIORICET 50-300-40 MG ORAL CAPS 266249 BUUJQYZMML-OYOD-MXAXYLGO Inactive FLONASE 50 MCG/ACT SUSP 1 spray each nostril twice daily for allergies and runny nose FLONASE 50 MCG/ACT SUSP 9511478 FLUTICASONE PROPIONATE Inactive LORATADINE 10 MG TABS 1 tablet by mouth daily for congestion and allergies. LORATADINE 10 MG TABS 823317 LORATADINE Inactive NITROSTAT 0.4 MG SUBL PRN NITROSTAT 0.4 MG SUBL 729407 NITROGLYCERIN Inactive ZITHROMAX 250 MG TAB 2 po today, then 1 po q days 2-5 ZITHROMAX 250 MG TAB 2188582 AZITHROMYCIN Inactive TERBINAFINE HCL 250 MG TABS 1 tab po qday for foot infection 2014 TERBINAFINE HCL 250 MG TABS 580700 TERBINAFINE HCL Inactive KEFLEX 500 MG CAP 1 po TID x 10 days KEFLEX 500 MG CAP 081737 CEPHALEXIN Inactive BACTRIM DS 800-160 MG TAB 1 tab by mouth twice daily BACTRIM DS 800-160 MG TAB 532867 TRIMETHOPRIM-SULFAMETHOXAZOLE Inactive PREDNISONE 20 MG TAB take 3 tabs daily for 3 days, 2 tabs daily for 3 days, 1 tab daily for 3 days, 1/2 tab daily for 4 days PREDNISONE 20 MG TAB 464877 PREDNISONE Inactive Advance Directives Directive Description Start [...] AUTO - Chemistry sodium, serum 142 mmol/L 356-344 4874/07/17 carbon dioxide, venous blood 28.2 mmol/L 21.0-32.0 [...] % 11.0-15.0 platelet count 185 THOUSAND/UL 10*3/mm3 194-954 5206/04/14 mean platelet volume 10.9 fL 7.5-12.5 mean corpuscular volume, RBC 90.5 fL 80.0-100.0 hematocrit, blood 42.0 % 38.5-50.0 hemoglobin, blood 13.9 g/dL 13.2-17.1 erythrocyte (RBC) count 4.64 MILLION/UL 10*6/mm3 4.20-5.80 leukocyte count, blood 10.1 THOUSAND/UL 10*3/mm3 3.8-10.8 Lab Report: LIPID PANEL, TSH/899, T4, FREE/866 - Chemistry cholesterol, serum 220 mg/dL 548-574 5077/04/14 HDL cholesterol, serum 30 mg/dL > OR=40 [...] 1.80 ng/mL 0.00-4.00 Lab Report: VITAMIN D, 25-HYDROXY/34933 - Chemistry vitamin D 25-hydroxy, serum 25 ng/mL 30-100 Office Visit: Confusion, dizziness after fall - Basic LDL target level 130 mg/dL Office Visit: Confusion, dizziness after fall - Chemistry HDL cholesterol, serum, target level 40 mg/dL triglyceride, target level 150 mg/dL cholesterol, target level 200 mg/dL Encounters Code Encounter Date Provider Facility CPT-73951 Level 4 Est. Patient 15:18:19 CDT Robbie Busby MD [facility] CPT-20434 Level 3 Est. Patient 09:00:37 CDT Rober Rodríguez [facility] CPT-61092 Level 3 Est. Patient 16:07:10 CDT Robbie Busby MD [facility] CPT-23479 Level 4 Est. Patient 11:56:16 CDT Erin Garsia [facility] CPT-06244 Level 3 Est. Patient 17:48:02 CDT Robbie Busby MD [facility] CPT-15198 Level 4 Est. Patient 12:00:49 SCHEDULER CONVEYOR Rober Rodríguez [facility] CPT-15378 Level 3 Est. Patient 09:16:37 CDT Robbie Busby MD [facility] CPT-89575 Level 3 Est. Patient 19:38:43 CDT Robbie Busby MD [facility] CPT-40968 Level 3 Est. Patient 11:53:38 CDT Robbie Busby MD [facility] CPT-21773 Level 4 Est. Patient 12:52:22 CDT Rober Rodríguez [facility] CPT-86428 Level 4 Est. Patient 22:55:17 CDT Robbie Busby MD [facility] CPT-03914 Level 3 Est. Patient 12:38:24 CDT Desmond Diaz DO [facility] CPT-37098 Level 4 Est. Patient 11:25:03 SCHEDULER CONVEYOR Robbie Busby MD [facility] CPT-86906 Level 4 Est. Patient 14:50:10 CDT Robbie Busby MD [facility] CPT-08740 Level 4 Est. Patient 23:30:43 CDT Robbie Busby MD [facility] CPT-55757 Level 4 Est. Patient 10:30:43 CDT Robbie Busby MD [facility] CPT-12593 Level 3 Est. Patient 17:08:12 CDT Alex Shaw [facility] CPT-03728 Level 4 Est. Patient 17:51:38 CDT Robibe Busby MD [facility] CPT-30661 Level 4 Est. Patient 14:00:21 CDT Robbie Busby MD [facility] CPT-83478 Level 4 Est. Patient 12:46:48 CDT Robbie Busby MD [facility] CPT-79162 Level 4 Est. Patient 13:34:33 CDT Robbie Busby MD [facility] CPT-46526 Level 4 Est. Patient 16:58:28 CDT Robbie Busby MD [facility] CPT-24544 Level 3 Est. Patient 19:36:53 CDT Alex Shaw [facility] CPT-79007 Level 3 Est. Patient 12:58:15 CDT Robbie Busby MD [facility] Procedures Code Procedure Name Date Entry Date Standard Description CPT-J1071 Depo Testosterone 200mg 08:30:01 CDT CPT-47846 Abx/Therapy Injection 08:30:01 CDT CPT-J1071 Depo Testosterone 200mg 08:24:00 CDT CPT-21440 Abx/Therapy Injection 08:24:00 CDT CPT-52089 Venipuncture Draw Fee 14:39:06 CDT CPT-67113 Ribs unilateral 2V - XRAY USE ONLY 12:10:11 CDT CPT-71190 First Vx - Ix admin for Medicare patients 16:32:53 CDT CPT-98105 Boostrix Intramuscular Suspension 5-2.5-18.5 16:32:53 CDT CPT-91297 TB Skin Test 11:42:28 CDT CPT-85069 Tdap 7yrs or > 11:42:28 CDT CPT-J0696 Rocephin 1000 mg (Ceftriaxone) 17:43:43 SCHEDULER CONVEYOR CPT-J1040 Depo Medrol 80 mg (Methyl Prednisolone Acetate) 17:43: 43 SCHEDULER CONVEYOR CPT-J1100 Decadron 8mg (Dexamethasone) 17:43:42 SCHEDULER CONVEYOR CPT-05379 Abx/Therapy Injection 17:43:42 SCHEDULER CONVEYOR CPT-71968 Abx/Therapy Injection 17:43:42 SCHEDULER CONVEYOR CPT-J1040 Depo Medrol 80 mg (Methyl Prednisolone Acetate) 09:43: 34 SCHEDULER CONVEYOR CPT-J1100 Decadron 8mg (Dexamethasone) 09:43:34 SCHEDULER CONVEYOR CPT-J0696 Rocephin 1gm Inj Solr 09:43:34 SCHEDULER CONVEYOR CPT-86495 Wound Culture - LAB USE ONLY 14:00:21 CDT CPT-I/D I/D Abscess 09:16:37 CDT CPT-51655 Venipuncture Draw Fee 15:20:23 CDT CPT-49882 Microalbumin - LAB USE ONLY 16:02:19 CDT CPT-26080 CBC - LAB USE ONLY 16:02:19 CDT CPT-29179 Venipuncture Draw Fee 16:02:19 CDT CPT-G0438 Initial Annual Wellness Exam 08:10:28 CDT CPT-45796 Venipuncture Draw Fee 13:07:17 CDT CPT-G0008 Administration of Influenza Virus Vaccine 16:09:59 CDT CPT-44621 Fluzone Quadrivalent Intramuscular Suspension 0.5 ML 16: 09:59 CDT CPT-61835 Spec Collection and Handling Fee 15:05:50 CDT
--- OUTSIDE RECORDS SUMMARY | 2018-04-18 12:30 | XMS REPORT | Clinical Summary ---
Author Author Admin, [facility] Organization [facility] Address Unknown Phone Unavailable Allergies, Adverse [...] day as needed for dizziness MECLIZINE HCL 64505262666 Active Robbie Busby MD Active TRILEPTAL 150 MG ORAL TABS 1 TAB PO Q HS OXCARBAZEPINE 73224986264 Active Robbie Busby MD Active TEMAZEPAM 15 MG ORAL CAPS 1 TAB PO Q HS TEMAZEPAM 57743328206 Active Robbie Busby MD Active ALPRAZOLAM 2 MG ORAL TABS 1 TAB PO BID ALPRAZOLAM 82230965425 Active Robbie Busby MD Active FENOFIBRATE 145 MG TABS Take one by mouth daily FENOFIBRATE 45743665122 No Longer Active Robbie Busby MD Active LAMISIL 125 MG ORAL PACK 1 TAB PO DAILY TERBINAFINE HCL 07638166067 Active Robbie Busby MD Active SPIRONOLACTONE 50 MG TABS 1 tablet by mouth twice a day SPIRONOLACTONE 90067898894 No Longer Active Robbie Busby MD Active HYDRALAZINE HCL 25 MG TABS 1 tablet by mouth tid for hypertension HYDRALAZINE HCL 10423317298 No Longer Active Robbie Busby MD Active VIIBRYD 40 MG TABS take 1 tab po qday for depression. VILAZODONE HCL 48077272349 No Longer Active Robbie Busby MD Active TERBINAFINE HCL 250 MG TABS 1 tab po qday for foot infection 2014 TERBINAFINE HCL 10319241889 No Longer Active Robbie Busby MD Active GABAPENTIN 300 MG CAPS 1 po q hs for nerve pain GABAPENTIN 61077553554 Active Robbie Busby MD Active FLONASE 50 MCG/ACT SUSP 1 spray each nostril twice daily for allergies and runny nose FLUTICASONE PROPIONATE 57710561124 Active Robbie Busby MD Active CHERATUSSIN AC 100-10 MG/5ML ORAL SOLN 7.5 mL PO q 4-6 hrs PRN cough GUAIFENESIN-CODEINE 29157732533 No Longer Active Robbie Busby MD Active AZITHROMYCIN 250 MG ORAL TABS 2 tablets PO today---then, 1 tablet PO daily x 4 more days (and 1 optional refill) AZITHROMYCIN 37625031885 No Longer Active Robbie Busby MD Active CLONIDINE HCL 0.2 MG ORAL TABS 1 TAB BY MOUTH EVERY 8 HOURS CLONIDINE HCL 58329229292 Active Robbie Busby MD Active HYDROCHLOROTHIAZIDE TABS Take one by mouth daily HYDROCHLOROTHIAZIDE TABS 84327536148 Active Alex ALVAREZ Active NORVASC 10 MG TAB 1 tablet by mouth daily AMLODIPINE BESYLATE 16293631526 No Longer Active Alex ALVAREZ Active PROTONIX 40 MG SOLR 1 po qday for acid reflux PANTOPRAZOLE SODIUM 37884506716 Active Robbie Busby MD Active IMDUR 60 MG TAB CR take 1 tab po qday for blood pressure ISOSORBIDE MONONITRATE Active Robbie Busby MD Active ISOSORBIDE DINITRATE 30 MG TABS Take one by mouth daily ISOSORBIDE DINITRATE 43856834454 No Longer Active Robbie Busby MD Active VIIBRYD 40 MG TABS 1 TA B PO DAILY VILAZODONE HCL 74650820180 Active Robbie Busby MD Active LORATADINE 10 MG TABS 1 tablet by mouth daily for congestion and allergies. LORATADINE 36424926931 Active Robbie Busby MD Active ZITHROMAX 250 MG TAB 2 po today, then 1 po q days 2-5 AZITHROMYCIN 28301160529 No Longer Active Robbie Busby MD Active HYDROCODONE-ACETAMINOPHEN 5-325 MG TABS 1 tab by mouth BID prn back pain 2013 HYDROCODONE-ACETAMINOPHEN 84087699461 Active Robbie Busby MD Active HYDRALAZINE HCL 50 MG TABS take 1 tab po QID for high blood pressure HYDRALAZINE HCL 45502170204 Active Robbie Busby MD Active GXLGTOIG-YHU-6 0.3 MG/24HR PTWK apply 2 patches q week for HTN CLONIDINE HCL 30266509225 Active Robbie Busby MD Active NITROSTAT 0.4 MG SUBL PRN NITROGLYCERIN 37541704547 Active Robbie Busby MD Active DOXAZOSIN MESYLATE 4 MG TABS Take one by mouth daily DOXAZOSIN MESYLATE 98198659780 Active Robbie Busby MD Active TOPROL XL 200 MG [id number]-AKS Take one by mouth daily METOPROLOL SUCCINATE 75226994759 Active Robbie Busby MD Active VENLAFAXINE HCL ER 150 MG [id number]-UOD Take one by mouth daily VENLAFAXINE HCL 25815601961 Active Robbie Bubsy MD Active LIPITOR 40 MG TABS Take one by mouth daily ATORVASTATIN CALCIUM 67543601263 Active Robbie Busby MD Active ISOSORBIDE DINITRATE 30 MG TABS Take one by mouth daily ISOSORBIDE DINITRATE 30 MG TABS 537463 ISOSORBIDE DINITRATE Inactive NORVASC 10 MG TAB 1 tablet by mouth daily NORVASC 10 MG TAB 367952 AMLODIPINE BESYLATE Inactive AZITHROMYCIN 250 MG ORAL TABS 2 tablets PO today---then, 1 tablet PO daily x 4 more days (and 1 optional refill) AZITHROMYCIN 250 MG ORAL TABS 6251987 AZITHROMYCIN Inactive CHERATUSSIN AC 100-10 MG/5ML ORAL SOLN 7.5 mL PO q 4-6 hrs PRN cough CHERATUSSIN AC 100-10 MG/5ML ORAL SOLN 806816 GUAIFENESIN- CODEINE Inactive VIIBRYD 40 MG TABS take 1 tab po qday for depression. VIIBRYD 40 MG TABS VILAZODONE HCL Inactive HYDRALAZINE HCL 25 MG TABS 1 tablet by mouth tid for hypertension HYDRALAZINE HCL 25 MG TABS 988920 HYDRALAZINE HCL Inactive SPIRONOLACTONE 50 MG TABS 1 tablet by mouth twice a day SPIRONOLACTONE 50 MG TABS 190948 SPIRONOLACTONE Inactive FENOFIBRATE 145 MG TABS Take one by mouth daily FENOFIBRATE 145 MG TABS 137899 FENOFIBRATE Inactive ZITHROMAX 250 MG TAB 2 po today, then 1 po q days 2-5 ZITHROMAX 250 MG TAB 7597370 AZITHROMYCIN Inactive TERBINAFINE HCL 250 MG TABS 1 tab po qday for foot infection 2014 TERBINAFINE HCL 250 MG TABS 367873 TERBINAFINE HCL Inactive Vital Signs Date Name [...] Panel - Chemistry sodium, serum 141 mmol/L 438-832 8031/12/05 potassium, serum 4.0 mmol/L 3.5-5.2 chloride, serum [...] 0.60-1.30 Encounters Code Encounter Date Provider Facility CPT-95043 Level 4 Est. Patient 14:50:10 CDT Robbie Busby MD [facility] CPT-77678 Level 4 Est. Patient 23:30:43 CDT Robbie Busby MD [facility] CPT-73382 Level 4 Est. Patient 10:30:43 CDT Robbie Busby MD [facility] CPT-45380 Level 3 Est. Patient 17:08:12 CDT Alex ALVAREZ [facility] CPT-36780 Level 4 Est. Patient 17:51:38 CDT Robbie Busby MD [facility] CPT-18021 Level 4 Est. Patient 14:00:21 CDT Robbie Busby MD [facility] CPT-14288 Level 4 Est. Patient 12:46:48 CDT Robbie Busby MD [facility] CPT-46369 Level 4 Est. Patient 13:34:33 CDT Robbie Busby MD [facility] CPT-06757 Level 4 Est. Patient 16:58:28 CDT Robbie Busby MD [facility] CPT-03414 Level 3 Est. Patient 19:36:53 CDT Alex Shaw [facility] CPT-79703 Level 3 Est. Patient 12:58:15 CDT Robbie Busby MD [facility] Procedures Code Procedure Name Date Entry Date Standard Description CPT-G0008 Administration of Influenza Virus Vaccine 16:09:59 CDT CPT-07127 Fluzone Quadrivalent Intramuscular Suspension 0.5 ML 16: 09:59 CDT CPT-40872 Spec Collection and Handling Fee 15:05:50 CDT
--- OUTSIDE RECORDS SUMMARY | 2018-04-18 12:30 | XMS REPORT | Clinical Summary ---
Author Author Admin, AKUA Organization [employer] 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 Rober Rodríguez CONDOMINIUM MANAGER Other malignant secondary hypertension Tachycardia 785.0 [...] hypertension Sinusitis - acute 461.9 Active Erin Grasia APRN Acute sinusitis, unspecified Medication List Medication Instructions Start Date Stop Date Generic Name NDC Status Provider Patient Instruction LEVAQUIN 500 MG TAB 1 tablet by mouth daily for 7 days LEVOFLOXACIN 08750719439 Active Erin Garsia APRN Active BACTRIM DS 800-160 MG TAB 1 tab by mouth twice daily TRIMETHOPRIM-SULFAMETHOXAZOLE 21914717343 No Longer Active Robbie Busby MD Active SPIRONOLACTONE 25 MG TAB 4 tablets by mouth daily SPIRONOLACTONE 27121510303 Active Robbie Busby MD Active HYDRALAZINE HCL 50 MG ORAL TABS TWO BY MOUTH THREE TIMES DAILY HYDRALAZINE HCL 36114946737 No Longer Active Andrellina Zulemal CONDOMINIUM MANAGER Active HYDROCODONE-ACETAMINOPHEN 5-325 MG TABS 1 tab by mouth BID prn back pain 2013 HYDROCODONE-ACETAMINOPHEN 14668749596 No Longer Active Jillina Frazell CONDOMINIUM MANAGER Active HYDROCHLOROTHIAZIDE TABS Take one by mouth daily HYDROCHLOROTHIAZIDE TABS 88099576084 No Longer Active Jillina Frazell CONDOMINIUM MANAGER Active LAMISIL 125 MG ORAL PACK 1 TAB PO DAILY TERBINAFINE HCL 30766667692 No Longer Active Jillina Frazell CONDOMINIUM MANAGER Active TRILEPTAL 150 MG ORAL TABS 1 TAB PO Q HS OXCARBAZEPINE 72483727730 No Longer Active Jillina Frazell CONDOMINIUM MANAGER Active BETADINE 10 % EXT SOLN wash with solution to treat follicultis POVIDONE-IODINE 08511125628 No Longer Active Jillina Frazell CONDOMINIUM MANAGER Active NYSTATIN 324389 UNIT/ML M/T SUSP 5mL po QID x 10 days NYSTATIN 81202439123 No Longer Active Erin Garsia APRN Active PREDNISONE 20 MG TAB 1 tablet twice daily for 2 days, then 1 tablet once daily for 2 days PREDNISONE 31070750007 No Longer Active Robbie Busyb MD Active CEFDINIR 300 MG ORAL CAPS Take 1 cap po bid x 10 days CEFDINIR 97477955921 No Longer Active Robbie Busby MD Active AMLODIPINE BESYLATE 10 MG TABS 1 tablet by mouth daily AMLODIPINE BESYLATE 22751026130 Active Robbie Busby MD Active CARVEDILOL 25 MG TABS 1 & 1/2 TAB po BID CARVEDILOL 09232103385 Active Erin Garsia APRN Active VITAMIN D3 45622 UNIT CAPS 2 CAPS PO WEEKLY CHOLECALCIFEROL 05882481103 Active Erin Garsia APRN Active NEXIUM 40 MG CPDR 1 cap by mouth daily ESOMEPRAZOLE MAGNESIUM 70599000325 Active Robbie Busby MD Active PROTONIX 40 MG SOLR 1 po qday for acid reflux PANTOPRAZOLE SODIUM 33974485750 No Longer Active Gali Raida Active KEFLEX 500 MG CAP 1 po TID x 10 days CEPHALEXIN 19717615506 No Longer Active Robbie Busby MD Active FIORICET 50-300-40 MG ORAL CAPS take 1 tab po qday prn migraines. YSHBSLVOWI-GFAY-UEJUZWNY 11083522587 Active Robbie Busby MD Active TOPIRAMATE 50 MG ORAL TABS take 1 tab po BID for migraines. TOPIRAMATE 71314964878 Active Robbie Busby MD Active MECLIZINE HCL 25 MG TAB one 4 times a day as needed for dizziness MECLIZINE HCL 56135964662 Active Robbie Busby MD Active TEMAZEPAM 15 MG ORAL CAPS 1 TAB PO Q HS TEMAZEPAM 36198966139 Active Robbie Busby MD Active ALPRAZOLAM 2 MG ORAL TABS 1 TAB PO BID ALPRAZOLAM 01927282889 Active Robbie Busby MD Active FENOFIBRATE 145 MG TABS Take one by mouth daily FENOFIBRATE 73604101879 No Longer Active Robbie Busby MD Active SPIRONOLACTONE 50 MG TABS 1 tablet by mouth twice a day SPIRONOLACTONE 16347980802 No Longer Active Robbie Busby MD Active HYDRALAZINE HCL 25 MG TABS 1 tablet by mouth tid for hypertension HYDRALAZINE HCL 13771481086 No Longer Active Robbie Busby MD Active VIIBRYD 40 MG TABS take 1 tab po qday for depression. VILAZODONE HCL 96732828239 No Longer Active Robbie Busby MD Active TERBINAFINE HCL 250 MG TABS 1 tab po qday for foot infection 2014 TERBINAFINE HCL 50282841248 No Longer Active Robbie Busby MD Active GABAPENTIN 300 MG CAPS 1 po q hs for nerve pain GABAPENTIN 05617867792 Active Robbie Busby MD Active FLONASE 50 MCG/ACT SUSP 1 spray each nostril twice daily for allergies and runny nose FLUTICASONE PROPIONATE 81752652263 Active Robbie Busby MD Active CHERATUSSIN AC 100-10 MG/5ML ORAL SOLN 7.5 mL PO q 4-6 hrs PRN cough GUAIFENESIN-CODEINE 54679365951 No Longer Active Robbie Busby MD Active AZITHROMYCIN 250 MG ORAL TABS 2 tablets PO today---then, 1 tablet PO daily x 4 more days (and 1 optional refill) AZITHROMYCIN 47746343491 No Longer Active Robbie Busby MD Active CLONIDINE HCL 0.2 MG ORAL TABS 1 TAB BY MOUTH EVERY 8 HOURS CLONIDINE HCL 91700135653 Active Robbie Busby MD Active NORVASC 10 MG TAB 1 tablet by mouth daily AMLODIPINE BESYLATE 59410498266 No Longer Active Alex ALVAREZ Active IMDUR 60 MG TAB CR take 1 tab po qday for blood pressure ISOSORBIDE MONONITRATE Active Robbie Busby MD Active ISOSORBIDE DINITRATE 30 MG TABS Take one by mouth daily ISOSORBIDE DINITRATE 64911464962 No Longer Active Robbie Busby MD Active VIIBRYD 40 MG TABS 1 TA B PO DAILY VILAZODONE HCL 21833685378 Active Robbie Busby MD Active LORATADINE 10 MG TABS 1 tablet by mouth daily for congestion and allergies. LORATADINE 37294190481 Active Robbie Busby MD Active ZITHROMAX 250 MG TAB 2 po today, then 1 po q days 2-5 AZITHROMYCIN 47780320163 No Longer Active Robbie Busby MD Active SFTLAFET-KCY-1 0.3 MG/24HR PTWK apply 2 patches q week for HTN CLONIDINE HCL 77852816896 Active Robbie Busby MD Active NITROSTAT 0.4 MG SUBL PRN NITROGLYCERIN 16653790866 Active Robbie Busby MD Active DOXAZOSIN MESYLATE 4 MG TABS Take one by mouth daily DOXAZOSIN MESYLATE 41692900275 Active rEin Garsia APRN Active TOPROL XL 200 MG NL27C-SQP Take one by mouth daily METOPROLOL SUCCINATE 34676169019 Active Robbie Busby MD Active VENLAFAXINE HCL ER 150 MG FI11P-ZSG Take one by mouth daily VENLAFAXINE HCL 93560710460 Active Robbie Busby MD Active LIPITOR 40 MG TABS Take one by mouth daily ATORVASTATIN CALCIUM 28989784725 Active Robbie Busby MD Active ISOSORBIDE DINITRATE 30 MG TABS Take one by mouth daily ISOSORBIDE DINITRATE 30 MG TABS 924514 ISOSORBIDE DINITRATE Inactive NORVASC 10 MG TAB 1 tablet by mouth daily NORVASC 10 MG TAB 787598 AMLODIPINE BESYLATE Inactive AZITHROMYCIN 250 MG ORAL TABS 2 tablets PO today---then, 1 tablet PO daily x 4 more days (and 1 optional refill) AZITHROMYCIN 250 MG ORAL TABS 9003733 AZITHROMYCIN Inactive CHERATUSSIN AC 100-10 MG/5ML ORAL SOLN 7.5 mL PO q 4-6 hrs PRN cough CHERATUSSIN AC 100-10 MG/5ML ORAL SOLN 396809 GUAIFENESIN- CODEINE Inactive VIIBRYD 40 MG TABS take 1 tab po qday for depression. VIIBRYD 40 MG TABS VILAZODONE HCL Inactive HYDRALAZINE HCL 25 MG TABS 1 tablet by mouth tid for hypertension HYDRALAZINE HCL 25 MG TABS 679498 HYDRALAZINE HCL Inactive SPIRONOLACTONE 50 MG TABS 1 tablet by mouth twice a day SPIRONOLACTONE 50 MG TABS 807518 SPIRONOLACTONE Inactive FENOFIBRATE 145 MG TABS Take one by mouth daily FENOFIBRATE 145 MG TABS 463730 FENOFIBRATE Inactive PROTONIX 40 MG SOLR 1 po qday for acid reflux PROTONIX 40 MG SOLR 172865 PANTOPRAZOLE SODIUM Inactive CEFDINIR 300 MG ORAL CAPS Take 1 cap po bid x 10 days CEFDINIR 300 MG ORAL CAPS 990756 CEFDINIR Inactive PREDNISONE 20 MG TAB 1 tablet twice daily for 2 days, then 1 tablet once daily for 2 days PREDNISONE 20 MG TAB 636032 PREDNISONE Inactive NYSTATIN 140080 UNIT/ML M/T SUSP 5mL po QID x 10 days NYSTATIN 994663 UNIT/ML M/T SUSP 855311 NYSTATIN Inactive BETADINE 10 % EXT SOLN wash with solution to treat follicultis BETADINE 10 % EXT SOLN 0873836 POVIDONE-IODINE Inactive TRILEPTAL 150 MG ORAL TABS 1 TAB PO Q HS TRILEPTAL 150 MG ORAL TABS 990850 OXCARBAZEPINE Inactive LAMISIL 125 MG ORAL PACK 1 TAB PO DAILY LAMISIL 125 MG ORAL PACK TERBINAFINE HCL Inactive HYDROCHLOROTHIAZIDE TABS Take one by mouth daily HYDROCHLOROTHIAZIDE TABS HYDROCHLOROTHIAZIDE TABS Inactive HYDROCODONE-ACETAMINOPHEN 5-325 MG TABS 1 tab by mouth BID prn back pain 2013 HYDROCODONE-ACETAMINOPHEN 5-325 MG TABS 972365 HYDROCODONE -ACETAMINOPHEN Inactive HYDRALAZINE HCL 50 MG ORAL TABS TWO BY MOUTH THREE TIMES DAILY HYDRALAZINE HCL 50 MG ORAL TABS 445085 HYDRALAZINE HCL Inactive ZITHROMAX 250 MG TAB 2 po today, then 1 po q days 2-5 ZITHROMAX 250 MG TAB 1707673 AZITHROMYCIN Inactive TERBINAFINE HCL 250 MG TABS 1 tab po qday for foot infection 2014 TERBINAFINE HCL 250 MG TABS 917150 TERBINAFINE HCL Inactive KEFLEX 500 MG CAP 1 po TID x 10 days KEFLEX 500 MG CAP 250988 CEPHALEXIN Inactive BACTRIM DS 800-160 MG TAB 1 tab by mouth twice daily BACTRIM DS 800-160 MG TAB 655086 TRIMETHOPRIM-SULFAMETHOXAZOLE Inactive Advance Directives Directive Description Start [...] % 11.6-14.8 platelet count 229 10^3/MM^3 10*3/mm3 708-954 8054/09/06 hemoglobin, blood 14.4 g/dL 13.5-17.5 erythrocyte (RBC) count 4.72 10^6/MM^3 10*6/mm3 4.69-6.13 leukocyte count, blood 9.7 10^3/MM^3 10*3/mm3 4.6-10.2 Lab Report: Comp. Metabolic Panel, Uric Acid - Chemistry sodium, serum 139 mmol/L 048-666 6159/04/22 carbon dioxide, venous blood 29.4 mmol/L 21.0-32.0 [...] to Follow Negative Lab Report: VITAMIN D, 25-HYDROXY/14590 - Chemistry vitamin D 25-hydroxy, serum 23 ng/mL 30-100 Encounters Code Encounter Date Provider Facility CPT-65010 Level 4 Est. Patient 12:00:49 PRODUCTION OPERATIONS ENGINEER Rober Rodríguez APRN [facility] CPT-22418 Level 3 Est. Patient 09:16:37 CDT Robbie Busby MD [facility] CPT-93778 Level 3 Est. Patient 19:38:43 CDT Robbie Busby MD [facility] CPT-64079 Level 3 Est. Patient 11:53:38 CDT Robbie Busby MD [facility]-17808 Level 4 Est. Patient 12:52:22 CDT Rober Rodríguez APRN [facility] CPT-30609 Level 4 Est. Patient 22:55:17 CDT Robbie Busby MD [facility]-19325 Level 3 Est. Patient 12:38:24 CDT Desmond Diaz DO [facility] CPT-19013 Level 4 Est. Patient 11:25:03 PRODUCTION OPERATIONS ENGINEER Robbie Busby MD [facility]-11563 Level 4 Est. Patient 14:50:10 CDT Robbie Busby MD [facility] CPT-21408 Level 4 Est. Patient 23:30:43 CDT Robbie Busby MD [facility] CPT-04386 Level 4 Est. Patient 10:30:43 CDT Robbie Busby MD [facility] CPT-90682 Level 3 Est. Patient 17:08:12 CDT Alex ALVAREZ [facility] CPT-42928 Level 4 Est. Patient 17:51:38 CDT Robbie Busby MD [facility] CPT-30121 Level 4 Est. Patient 14:00:21 CDT Robbie Busby MD [facility] CPT-22971 Level 4 Est. Patient 12:46:48 CDT Robbie Busby MD [facility]-29769 Level 4 Est. Patient 13:34:33 CDT Robbie Busby MD [facility] CPT-37127 Level 4 Est. Patient 16:58:28 CDT Robbie Busby MD [facility] CPT-56502 Level 3 Est. Patient 19:36:53 CDT Alex ALVAREZ [facility] CPT-63801 Level 3 Est. Patient 12:58:15 CDT Robbie Busby MD [facility] Procedures Code Procedure Name Date Entry Date Standard Description CPT-J0696 Rocephin 1000 mg (Ceftriaxone) 17:43:43 PRODUCTION OPERATIONS ENGINEER CPT-J1040 Depo Medrol 80 mg (Methyl Prednisolone Acetate) 17:43: 43 PRODUCTION OPERATIONS ENGINEER CPT-J1100 Decadron 8mg (Dexamethasone) 17:43:42 PRODUCTION OPERATIONS ENGINEER CPT-35886 Abx/Therapy Injection 17:43:42 PRODUCTION OPERATIONS ENGINEER CPT-19198 Abx/Therapy Injection 17:43:42 PRODUCTION OPERATIONS ENGINEER CPT-J1040 Depo Medrol 80 mg (Methyl Prednisolone Acetate) 09:43: 34 PRODUCTION OPERATIONS ENGINEER CPT-J1100 Decadron 8mg (Dexamethasone) 09:43:34 PRODUCTION OPERATIONS ENGINEER CPT-J0696 Rocephin 1gm Inj Solr 09:43:34 PRODUCTION OPERATIONS ENGINEER CPT-16381 Wound Culture - LAB USE ONLY 14:00:21 CDT CPT-I/D I/D Abscess 09:16:37 CDT CPT-70913 Venipuncture Draw Fee 15:20:23 CDT CPT-19805 Microalbumin - LAB USE ONLY 16:02:19 CDT CPT-04770 CBC - LAB USE ONLY 16:02:19 CDT CPT-54632 Venipuncture Draw Fee 16:02:19 CDT CPT-G0438 Initial Annual Wellness Exam 08:10:28 CDT CPT-72674 Venipuncture Draw Fee 13:07:17 CDT CPT-G0008 Administration of Influenza Virus Vaccine 16:09:59 CDT CPT-81975 Fluzone Quadrivalent Intramuscular Suspension 0.5 ML 16: 09:59 CDT CPT-46353 Spec Collection and Handling Fee 15:05:50 CDT
--- OUTSIDE RECORDS SUMMARY | 2018-04-18 12:31 | XMS REPORT | Clinical Summary ---
Author Author Admin, [facility] Organization [facility] Address Unknown Phone Unavailable [...] muscle spasm/pain for 10 days CYCLOBENZAPRINE HCL 81057379813 Active Erin Garsia APRN Active PREDNISONE 20 MG TAB take 3 tabs daily for 3 days, 2 tabs daily for 3 days, 1 tab daily for 3 days, 1/2 tab daily for 4 days PREDNISONE 51476275642 No Longer Active Erin Garsia APRN Active CLONIDINE HCL 0.2 MG ORAL TABS 1 TAB BY MOUTH EVERY 8 HOURS 12/29 CLONIDINE HCL 51141238916 No Longer Active Erin Garsia APRN Active MECLIZINE HCL 25 MG TAB one 4 times a day as needed for dizziness MECLIZINE HCL 72513409063 No Longer Active Erin Garsia APRN Active SPIRONOLACTONE 25 MG TAB 4 tablets by mouth daily SPIRONOLACTONE 53028087235 No Longer Active Erin Garsia APRN Active LEVAQUIN 500 MG TAB 1 tablet by mouth daily for 7 days LEVOFLOXACIN 73412221800 No Longer Active Erin Garsia APRN Active BACTRIM DS 800-160 MG TAB 1 tab by mouth twice daily TRIMETHOPRIM-SULFAMETHOXAZOLE 04663668998 No Longer Active Robbie Busby MD Active HYDRALAZINE HCL 50 MG ORAL TABS TWO BY MOUTH THREE TIMES DAILY HYDRALAZINE HCL 29927216235 No Longer Active Jillina Frazell 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 HYDROCODONE-ACETAMINOPHEN 5-325 MG TABS 1 tab by mouth BID prn back pain 2013 HYDROCODONE-ACETAMINOPHEN 08686390771 No Longer Active Jillina Frazell [employer] 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 HYDROCHLOROTHIAZIDE TABS Take one by mouth daily HYDROCHLOROTHIAZIDE TABS 86160048013 No Longer Active Jillina Frazell [employer] 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 LAMISIL 125 MG ORAL PACK 1 TAB PO DAILY TERBINAFINE HCL 61872972462 No Longer Active Jillina Frazell 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 TRILEPTAL 150 MG ORAL TABS 1 TAB PO Q HS OXCARBAZEPINE 04787786003 No Longer Active Jillina Frazell 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 BETADINE 10 % EXT SOLN wash with solution to treat follicultis POVIDONE-IODINE 75174294794 No Longer Active Andrellina Anne GONZALEZN Active NYSTATIN 560587 UNIT/ML M/T SUSP 5mL po QID x 10 days NYSTATIN 66858459382 No Longer Active Erin Garsia APRN Active PREDNISONE 20 MG TAB 1 tablet twice daily for 2 days, then 1 tablet once daily for 2 days PREDNISONE 85798659878 No Longer Active Robbie Busby MD Active CEFDINIR 300 MG ORAL CAPS Take 1 cap po bid x 10 days CEFDINIR 06980959429 No Longer Active Robbie Busby MD Active AMLODIPINE BESYLATE 10 MG TABS 1 tablet by mouth daily AMLODIPINE BESYLATE 56497434481 Active Robbie Busby MD Active CARVEDILOL 25 MG TABS 1 & 1/2 TAB po BID CARVEDILOL 27171064961 Active Erin Garsia APRN Active VITAMIN D3 04996 UNIT CAPS 2 CAPS PO WEEKLY CHOLECALCIFEROL 93499413210 Active Erin Garsia APRN Active NEXIUM 40 MG CPDR 1 cap by mouth daily ESOMEPRAZOLE MAGNESIUM 98866272125 Active Robbie Busby MD Active PROTONIX 40 MG SOLR 1 po qday for acid reflux PANTOPRAZOLE SODIUM 53325828889 No Longer Active Gali Negro Active KEFLEX 500 MG CAP 1 po TID x 10 days CEPHALEXIN 81552477956 No Longer Active Robbie Busby MD Active FIORICET 50-300-40 MG ORAL CAPS take 1 tab po qday prn migraines. [id number] 92102350539 Active Robbie Busby MD Active TOPIRAMATE 50 MG ORAL TABS take 1 tab po BID for migraines. TOPIRAMATE 37223744421 Active Robbie Busby MD Active TEMAZEPAM 15 MG ORAL CAPS 1 TAB PO Q HS TEMAZEPAM 45283174996 Active Robbie Busby MD Active ALPRAZOLAM 2 MG ORAL TABS 1 TAB PO BID ALPRAZOLAM 27716070237 Active Robbie Busby MD Active FENOFIBRATE 145 MG TABS Take one by mouth daily FENOFIBRATE 02883623425 No Longer Active Robbie Busby MD Active SPIRONOLACTONE 50 MG TABS 1 tablet by mouth twice a day SPIRONOLACTONE 02215058004 No Longer Active Robbie Busby MD Active HYDRALAZINE HCL 25 MG TABS 1 tablet by mouth tid for hypertension HYDRALAZINE HCL 08616222825 No Longer Active Robbie Busby MD Active VIIBRYD 40 MG TABS take 1 tab po qday for depression. VILAZODONE HCL 68372689570 No Longer Active Robbie Busby MD Active TERBINAFINE HCL 250 MG TABS 1 tab po qday for foot infection 2014 TERBINAFINE HCL 87187785147 No Longer Active Robbie Busby MD Active GABAPENTIN 300 MG CAPS 1 po q hs for nerve pain GABAPENTIN 09886501560 Active Robbie Busby MD Active FLONASE 50 MCG/ACT SUSP 1 spray each nostril twice daily for allergies and runny nose FLUTICASONE PROPIONATE 45488952715 Active Robbie Busby MD Active CHERATUSSIN AC 100-10 MG/5ML ORAL SOLN 7.5 mL PO q 4-6 hrs PRN cough GUAIFENESIN-CODEINE 10883247779 No Longer Active Robbie Busby MD Active AZITHROMYCIN 250 MG ORAL TABS 2 tablets PO today---then, 1 tablet PO daily x 4 more days (and 1 optional refill) AZITHROMYCIN 93744457467 No Longer Active Robbie Busby MD Active NORVASC 10 MG TAB 1 tablet by mouth daily AMLODIPINE BESYLATE 24812864147 No Longer Active Alex ALVAREZ Active IMDUR 60 MG TAB CR take 1 tab po qday for blood pressure ISOSORBIDE MONONITRATE Active Robbie Busby MD Active ISOSORBIDE DINITRATE 30 MG TABS Take one by mouth daily ISOSORBIDE DINITRATE 83409893017 No Longer Active Robbie Busby MD Active VIIBRYD 40 MG TABS 1 TA B PO DAILY VILAZODONE HCL 17080961523 Active Robbie Busby MD Active LORATADINE 10 MG TABS 1 tablet by mouth daily for congestion and allergies. LORATADINE 69708844484 Active Robbie Busby MD Active ZITHROMAX 250 MG TAB 2 po today, then 1 po q days 2-5 AZITHROMYCIN 77158242904 No Longer Active Robbie Busby MD Active [id number]-[id number]-4 0.3 MG/24HR PTWK apply 2 patches q week for HTN CLONIDINE HCL 56700834412 Active Robbie Busby MD Active NITROSTAT 0.4 MG SUBL PRN NITROGLYCERIN 75599779569 Active Robbie Busby MD Active DOXAZOSIN MESYLATE 4 MG TABS Take one by mouth daily DOXAZOSIN MESYLATE 21760789089 Active Erinmarianne Garsia [employer] 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 TOPROL XL 200 MG [id number]-[id number] Take one by mouth daily METOPROLOL SUCCINATE 99108536035 Active Robbie Busby MD Active VENLAFAXINE HCL ER 150 MG [id number]-SUP Take one by mouth daily VENLAFAXINE HCL 73901156360 Active Robbie Busby MD Active LIPITOR 40 MG TABS Take one by mouth daily ATORVASTATIN CALCIUM 08970197030 Active Robbie Busby MD Active ISOSORBIDE DINITRATE 30 MG TABS Take one by mouth daily ISOSORBIDE DINITRATE 30 MG TABS 573879 ISOSORBIDE DINITRATE Inactive NORVASC 10 MG TAB 1 tablet by mouth daily NORVASC 10 MG TAB 115751 AMLODIPINE BESYLATE Inactive AZITHROMYCIN 250 MG ORAL TABS 2 tablets PO today---then, 1 tablet PO daily x 4 more days (and 1 optional refill) AZITHROMYCIN 250 MG ORAL TABS 6915104 AZITHROMYCIN Inactive CHERATUSSIN AC 100-10 MG/5ML ORAL SOLN 7.5 mL PO q 4-6 hrs PRN cough CHERATUSSIN AC 100-10 MG/5ML ORAL SOLN 838817 GUAIFENESIN- CODEINE Inactive VIIBRYD 40 MG TABS take 1 tab po qday for depression. VIIBRYD 40 MG TABS VILAZODONE HCL Inactive HYDRALAZINE HCL 25 MG TABS 1 tablet by mouth tid for hypertension HYDRALAZINE HCL 25 MG TABS 374145 HYDRALAZINE HCL Inactive SPIRONOLACTONE 50 MG TABS 1 tablet by mouth twice a day SPIRONOLACTONE 50 MG TABS 106066 SPIRONOLACTONE Inactive FENOFIBRATE 145 MG TABS Take one by mouth daily FENOFIBRATE 145 MG TABS 662038 FENOFIBRATE Inactive PROTONIX 40 MG SOLR 1 po qday for acid reflux PROTONIX 40 MG SOLR 139660 PANTOPRAZOLE SODIUM Inactive CEFDINIR 300 MG ORAL CAPS Take 1 cap po bid x 10 days CEFDINIR 300 MG ORAL CAPS 101929 CEFDINIR Inactive PREDNISONE 20 MG TAB 1 tablet twice daily for 2 days, then 1 tablet once daily for 2 days PREDNISONE 20 MG TAB 341894 PREDNISONE Inactive NYSTATIN 174569 UNIT/ML M/T SUSP 5mL po QID x 10 days NYSTATIN 749608 UNIT/ML M/T SUSP 901309 NYSTATIN Inactive BETADINE 10 % EXT SOLN wash with solution to treat follicultis BETADINE 10 % EXT SOLN 7382503 POVIDONE-IODINE Inactive TRILEPTAL 150 MG ORAL TABS 1 TAB PO Q HS TRILEPTAL 150 MG ORAL TABS 071559 OXCARBAZEPINE Inactive LAMISIL 125 MG ORAL PACK 1 TAB PO DAILY LAMISIL 125 MG ORAL PACK TERBINAFINE HCL Inactive HYDROCHLOROTHIAZIDE TABS Take one by mouth daily HYDROCHLOROTHIAZIDE TABS HYDROCHLOROTHIAZIDE TABS Inactive HYDROCODONE-ACETAMINOPHEN 5-325 MG TABS 1 tab by mouth BID prn back pain 2013 HYDROCODONE-ACETAMINOPHEN 5-325 MG TABS 490427 HYDROCODONE -ACETAMINOPHEN Inactive HYDRALAZINE HCL 50 MG ORAL TABS TWO BY MOUTH THREE TIMES DAILY HYDRALAZINE HCL 50 MG ORAL TABS 515892 HYDRALAZINE HCL Inactive LEVAQUIN 500 MG TAB 1 tablet by mouth daily for 7 days LEVAQUIN 500 MG TAB 828744 LEVOFLOXACIN Inactive SPIRONOLACTONE 25 MG TAB 4 tablets by mouth daily SPIRONOLACTONE 25 MG TAB 801984 SPIRONOLACTONE Inactive MECLIZINE HCL 25 MG TAB one 4 times a day as needed for dizziness MECLIZINE HCL 25 MG TAB 746665 MECLIZINE HCL Inactive CLONIDINE HCL 0.2 MG ORAL TABS 1 TAB BY MOUTH EVERY 8 HOURS 12/29 CLONIDINE HCL 0.2 MG ORAL TABS 194222 CLONIDINE HCL Inactive ZITHROMAX 250 MG TAB 2 po today, then 1 po q days 2-5 ZITHROMAX 250 MG TAB 7459028 AZITHROMYCIN Inactive TERBINAFINE HCL 250 MG TABS 1 tab po qday for foot infection 2014 TERBINAFINE HCL 250 MG TABS 580286 TERBINAFINE HCL Inactive KEFLEX 500 MG CAP 1 po TID x 10 days KEFLEX 500 MG CAP 119321 CEPHALEXIN Inactive BACTRIM DS 800-160 MG TAB 1 tab by mouth twice daily BACTRIM DS 800-160 MG TAB 114433 TRIMETHOPRIM-SULFAMETHOXAZOLE Inactive PREDNISONE 20 MG TAB take 3 tabs daily for 3 days, 2 tabs daily for 3 days, 1 tab daily for 3 days, 1/2 tab daily for 4 days PREDNISONE 20 MG TAB 884731 PREDNISONE Inactive Advance Directives Directive Description Start [...] % 11.0-15.0 platelet count 185 THOUSAND/UL 10*3/mm3 024-220 8474/04/14 mean platelet volume 10.9 fL 7.5-12.5 Lab Report: HEPATITIS B SAB/Immune Status, RUBELLA IGG AB(Immune Status) - Serology rubella antibody, serum, IgG 2.06 Lab Report: LIPID PANEL, TSH/899, T4, FREE/866 - Chemistry cholesterol, serum 220 mg/dL 806-255 7655/04/14 HDL cholesterol, serum 30 mg/dL > OR=40 triglyceride, serum, fasting 466 mg/dL <150 LDL cholesterol, serum SEE NOTE mg/dL (calc) mg/dL <130 cholesterol/HDL ratio, serum 7.3 (calc) < OR=5.0 Lab Report: MICROALB/CREAT W/RATIO - Chemistry albumin/creatinine ratio, urine < 30 mg/g mg/g{creat} 0-29 Lab Report: MICROALB/CREAT W/RATIO - Lab microalbumin, urine 80 0-19 Lab Report: VITAMIN D, 25-HYDROXY/06621 - Chemistry vitamin D 25-hydroxy, serum 23 ng/mL 30-100 Encounters Code Encounter Date Provider Facility CPT-34024 Level 4 Est. Patient 12:00:49 PROGRAM OFFICER Rober Rodríguez [facility] CPT-43297 Level 3 Est. Patient 09:16:37 CDT Robbie Busby MD [facility] CPT-74779 Level 3 Est. Patient 19:38:43 CDT Robbie Busby MD [facility] CPT-64634 Level 3 Est. Patient 11:53:38 CDT Robbie Busby MD [facility] CPT-93747 Level 4 Est. Patient 12:52:22 CDT Rober Rodríguez [facility] CPT-57556 Level 4 Est. Patient 22:55:17 CDT Robbie Busby MD [facility] CPT-30361 Level 3 Est. Patient 12:38:24 CDT Desmond Diaz DO [facility] CPT-61312 Level 4 Est. Patient 11:25:03 PROGRAM OFFICER Robbie Busby MD [facility] CPT-93934 Level 4 Est. Patient 14:50:10 CDT Robbie Busby MD [facility] CPT-03050 Level 4 Est. Patient 23:30:43 CDT Robbie Busby MD [facility] CPT-78063 Level 4 Est. Patient 10:30:43 CDT Robbie Busby MD [facility] CPT-06720 Level 3 Est. Patient 17:08:12 CDT Alex ALVAREZ [facility] CPT-41920 Level 4 Est. Patient 17:51:38 CDT Robbie Busby MD [facility] CPT-79060 Level 4 Est. Patient 14:00:21 CDT Robbie Busby MD [facility] CPT-73315 Level 4 Est. Patient 12:46:48 CDT Robbie Busby MD [facility] CPT-21305 Level 4 Est. Patient 13:34:33 CDT Robbie Busby MD [facility] CPT-09039 Level 4 Est. Patient 16:58:28 CDT Robbie Busby MD [facility] CPT-56310 Level 3 Est. Patient 19:36:53 CDT Alex Shaw [facility] CPT-97554 Level 3 Est. Patient 12:58:15 CDT Robbie Busby MD [facility] Procedures Code Procedure Name Date Entry Date Standard Description CPT-J0696 Rocephin 1000 mg (Ceftriaxone) 17:43:43 PROGRAM OFFICER CPT-J1040 Depo Medrol 80 mg (Methyl Prednisolone Acetate) 17:43: 43 PROGRAM OFFICER CPT-J1100 Decadron 8mg (Dexamethasone) 17:43:42 PROGRAM OFFICER CPT-14739 Abx/Therapy Injection 17:43:42 PROGRAM OFFICER CPT-98559 Abx/Therapy Injection 17:43:42 PROGRAM OFFICER CPT-J1040 Depo Medrol 80 mg (Methyl Prednisolone Acetate) 09:43: 34 PROGRAM OFFICER CPT-J1100 Decadron 8mg (Dexamethasone) 09:43:34 PROGRAM OFFICER CPT-J0696 Rocephin 1gm Inj Solr 09:43:34 PROGRAM OFFICER CPT-83512 Wound Culture - LAB USE ONLY 14:00:21 CDT CPT-I/D I/D Abscess 09:16:37 CDT CPT-37164 Venipuncture Draw Fee 15:20:23 CDT CPT-10125 Microalbumin - LAB USE ONLY 16:02:19 CDT CPT-32375 CBC - LAB USE ONLY 16:02:19 CDT CPT-96509 Venipuncture Draw Fee 16:02:19 CDT CPT-G0438 Initial Annual Wellness Exam 08:10:28 CDT CPT-51201 Venipuncture Draw Fee 13:07:17 CDT CPT-G0008 Administration of Influenza Virus Vaccine 16:09:59 CDT CPT-17081 Fluzone Quadrivalent Intramuscular Suspension 0.5 ML 16: 09:59 CDT CPT-33494 Spec Collection and Handling Fee 15:05:50 CDT
--- OUTSIDE RECORDS SUMMARY | 2018-04-18 12:32 | XMS REPORT | Clinical Summary ---
Author Author Admin, [facility] Organization [facility] Address Unknown Phone Unavailable Allergies, Adverse [...] for allergies and runny nose FLUTICASONE PROPIONATE 10876063188 Active Robbie Busby MD Active CHERATUSSIN AC 100-10 MG/5ML ORAL SOLN 7.5 mL PO q 4-6 hrs PRN cough GUAIFENESIN-CODEINE 61979152606 No Longer Active Robbie Busby MD Active AZITHROMYCIN 250 MG ORAL TABS 2 tablets PO today---then, 1 tablet PO daily x 4 more days (and 1 optional refill) AZITHROMYCIN 21066361989 No Longer Active Robbie Busby MD Active CLONIDINE HCL 0.2 MG ORAL TABS 1 TAB BY MOUTH EVERY 8 HOURS CLONIDINE HCL 16718138713 Active Robbie Busby MD Active HYDROCHLOROTHIAZIDE TABS Take one by mouth daily HYDROCHLOROTHIAZIDE TABS 25103725869 Active Alex ALVAREZ Active NORVASC 10 MG TAB 1 tablet by mouth daily AMLODIPINE BESYLATE 50222093121 No Longer Active Alex ALVAREZ Active PROTONIX 40 MG SOLR 1 po qday for acid reflux PANTOPRAZOLE SODIUM 17389734269 Active Robbie Busby MD Active IMDUR 60 MG TAB CR take 1 tab po qday for blood pressure ISOSORBIDE MONONITRATE Active Robbie Busby MD Active ISOSORBIDE DINITRATE 30 MG TABS Take one by mouth daily ISOSORBIDE DINITRATE 33083524602 No Longer Active Robbie Busby MD Active VIIBRYD 40 MG TABS take 1 tab po qday for depression. VILAZODONE HCL 82355485180 Active Robbie Busby MD Active VIIBRYD 40 MG TABS 1 TA B PO DAILY VILAZODONE HCL 45849042193 Active Robbie Busby MD Active LORATADINE 10 MG TABS 1 tablet by mouth daily for congestion and allergies. LORATADINE 97168190432 Active Robbie Busby MD Active ZITHROMAX 250 MG TAB 2 po today, then 1 po q days 2-5 AZITHROMYCIN 69003220049 No Longer Active Robbie Busby MD Active HYDROCODONE-ACETAMINOPHEN 5-325 MG TABS 1 tab by mouth BID prn back pain 2013 HYDROCODONE-ACETAMINOPHEN 05203015013 Active Robbie Busby MD Active HYDRALAZINE HCL 50 MG TABS take 1 tab po QID for high blood pressure HYDRALAZINE HCL 55211479026 Active Robbie Busby MD Active [id number] 0.3 MG/24HR PTWK apply 2 patches q week for HTN CLONIDINE HCL 47842927005 Active Robbie Busby MD Active FENOFIBRATE 145 MG TABS Take one by mouth daily FENOFIBRATE 77208498102 Active Robbie Busby MD Active NITROSTAT 0.4 MG SUBL PRN NITROGLYCERIN 38444457782 Active Robbie Busby MD Active DOXAZOSIN MESYLATE 4 MG TABS Take one by mouth daily DOXAZOSIN MESYLATE 02061389328 Active Robbie Busby MD Active HYDRALAZINE HCL 25 MG TABS 1 tablet by mouth tid for hypertension HYDRALAZINE HCL 13912212375 Active Robbie Busby MD Active TOPROL XL 200 MG [id number] Take one by mouth daily METOPROLOL SUCCINATE 23362113678 Active Robbie Busby MD Active SPIRONOLACTONE 50 MG TABS 1 tablet by mouth twice a day SPIRONOLACTONE 75169979478 Active Robbie Busby MD Active VENLAFAXINE HCL ER 150 MG [id number] Take one by mouth daily VENLAFAXINE HCL 46918383501 Active Robbie Busby MD Active LIPITOR 40 MG TABS Take one by mouth daily ATORVASTATIN CALCIUM 65821630552 Active Robbie Busby MD Active ISOSORBIDE DINITRATE 30 MG TABS Take one by mouth daily ISOSORBIDE DINITRATE 30 MG TABS 880316 ISOSORBIDE DINITRATE Inactive NORVASC 10 MG TAB 1 tablet by mouth daily NORVASC 10 MG TAB 494113 AMLODIPINE BESYLATE Inactive AZITHROMYCIN 250 MG ORAL TABS 2 tablets PO today---then, 1 tablet PO daily x 4 more days (and 1 optional refill) AZITHROMYCIN 250 MG ORAL TABS 2639211 AZITHROMYCIN Inactive CHERATUSSIN AC 100-10 MG/5ML ORAL SOLN 7.5 mL PO q 4-6 hrs PRN cough CHERATUSSIN AC 100-10 MG/5ML ORAL SOLN 170958 GUAIFENESIN- CODEINE Inactive ZITHROMAX 250 MG TAB 2 po today, then 1 po q days 2-5 ZITHROMAX 250 MG TAB 6471154 AZITHROMYCIN Inactive Vital Signs Date Name Value [...] 2+ mg/dL Negative sodium, serum 144 mmol/L 577-640 5154/07/07 potassium, serum 3.9 mmol/L 3.5-5.2 chloride, serum [...] Panel - Chemistry sodium, serum 141 mmol/L 710-314 7465/12/05 potassium, serum 4.0 mmol/L 3.5-5.2 chloride, serum [...] mg/dL Encounters Code Encounter Date Provider Facility CPT-40297 Level 4 Est. Patient 10:30:43 CDT Robbie Busby MD [facility] CPT-69326 Level 3 Est. Patient 17:08:12 CDT Alex Shaw [facility] CPT-49327 Level 4 Est. Patient 17:51:38 CDT Robbie Busby MD [facility] CPT-82853 Level 4 Est. Patient 14:00:21 CDT Robbie Busby MD [facility] CPT-35553 Level 4 Est. Patient 12:46:48 CDT Robbie Busby MD [facility] CPT-55720 Level 4 Est. Patient 13:34:33 CDT Robbie Busby MD [facility] CPT-04137 Level 4 Est. Patient 16:58:28 CDT Robbie Busby MD [facility] CPT-11300 Level 3 Est. Patient 19:36:53 CDT Alex Shaw [facility] CPT-75522 Level 3 Est. Patient 12:58:15 CDT Robbie Busby MD [facility] Procedures Code Procedure Name Date Entry Date Standard Description CPT-G0008 Administration of Influenza Virus Vaccine 16:09:59 CDT CPT-71787 Fluzone Quadrivalent Intramuscular Suspension 0.5 ML 16: 09:59 CDT CPT-82019 Spec Collection and Handling Fee 15:05:50 CDT
--- OUTSIDE RECORDS SUMMARY | 2018-04-18 12:32 | XMS REPORT | Clinical Summary ---
Author Author Admin, AKUA Organization [facility] Address Unknown Phone Unavailable Allergies, Adverse Reactions, [...] Status Provider Patient Instruction GUAIFENESIN 600 MG [id number] 1 tab po q am GUAIFENESIN 74553054587 Active Jillina Frazell LAB ASSISTANT Active FLUTICASONE PROPIONATE 50 MCG/ACT SUSP 2 sprays per nostril bid for 1 week, then 1 spray bid FLUTICASONE PROPIONATE 72675813545 Active Jillina Frazell LAB ASSISTANT Active HYDRALAZINE HCL 25 MG ORAL TABS Take 1 tab BID. HYDRALAZINE HCL 39256835629 Active Jillina Frazell LAB ASSISTANT Active VITAMIN D3 51583 UNIT ORAL TABS 2 po weekly CHOLECALCIFEROL 29651975471 Active JONATHAN Moncada Active OXYCODONE HCL ER 10 MG ORAL T12A 1 tab po 3 times qd. OXYCODONE HCL 02662263880 Active Robbie Busby MD Active NITROSTAT 0.4 MG SUBL PRN NITROGLYCERIN 59560722504 No Longer Active Robbie Busby MD Active LORATADINE 10 MG TABS 1 tablet by mouth daily for congestion and allergies. LORATADINE 99869800914 No Longer Active Robbie Busby MD Active FLONASE 50 MCG/ACT SUSP 1 spray each nostril twice daily for allergies and runny nose FLUTICASONE PROPIONATE 93600990498 No Longer Active Robbie Busby MD Active FIORICET 50-300-40 MG ORAL CAPS take 1 tab po qday prn migraines. [id number] 32019091193 No Longer Active Robbie Busby MD Active VITAMIN D3 71089 UNIT CAPS 2 CAPS PO WEEKLY CHOLECALCIFEROL 63241377743 No Longer Active Robbie Busby MD Active CYCLOBENZAPRINE HCL 10 MG TABS 1 tablet by mouth three times daily as needed for muscle spasm/pain for 10 days CYCLOBENZAPRINE HCL 15594733699 No Longer Active Robbie Busby MD Active PREDNISONE 20 MG TAB take 3 tabs daily for 3 days, 2 tabs daily for 3 days, 1 tab daily for 3 days, 1/2 tab daily for 4 days PREDNISONE 29207032601 No Longer Active Erin Garsia APRN Active CLONIDINE HCL 0.2 MG ORAL TABS 1 TAB BY MOUTH EVERY 8 HOURS 12/29 CLONIDINE HCL 86793251721 No Longer Active Erin Garsia APRN Active MECLIZINE HCL 25 MG TAB one 4 times a day as needed for dizziness MECLIZINE HCL 64500363357 No Longer Active Erin Garsia APRN Active SPIRONOLACTONE 25 MG TAB 4 tablets by mouth daily SPIRONOLACTONE 16704659857 No Longer Active Erin Garsia APRN Active LEVAQUIN 500 MG TAB 1 tablet by mouth daily for 7 days LEVOFLOXACIN 22591009734 No Longer Active Erin Garsia APRN Active BACTRIM DS 800-160 MG TAB 1 tab by mouth twice daily TRIMETHOPRIM-SULFAMETHOXAZOLE 67666130907 No Longer Active Robbie Busby MD Active HYDRALAZINE HCL 50 MG ORAL TABS TWO BY MOUTH THREE TIMES DAILY HYDRALAZINE HCL 22585793385 No Longer Active Jillina Frazell LAB ASSISTANT Active HYDROCODONE-ACETAMINOPHEN 5-325 MG TABS 1 tab by mouth BID prn back pain 2013 HYDROCODONE-ACETAMINOPHEN 60179953812 No Longer Active Jillina Frazell LAB ASSISTANT Active HYDROCHLOROTHIAZIDE TABS Take one by mouth daily HYDROCHLOROTHIAZIDE TABS 95784942618 No Longer Active Jillina Frazell LAB ASSISTANT Active LAMISIL 125 MG ORAL PACK 1 TAB PO DAILY TERBINAFINE HCL 57609470962 No Longer Active Jillina Frazell LAB ASSISTANT Active TRILEPTAL 150 MG ORAL TABS 1 TAB PO Q HS OXCARBAZEPINE 07926493681 No Longer Active Jillina Frazell LAB ASSISTANT Active BETADINE 10 % EXT SOLN wash with solution to treat follicultis POVIDONE-IODINE 18413939070 No Longer Active Jillina Zulemal LAB ASSISTANT Active NYSTATIN 192525 UNIT/ML M/T SUSP 5mL po QID x 10 days NYSTATIN 24635869418 No Longer Active Erin Garsia APRN Active PREDNISONE 20 MG TAB 1 tablet twice daily for 2 days, then 1 tablet once daily for 2 days PREDNISONE 89682490871 No Longer Active Robbie Busby MD Active CEFDINIR 300 MG ORAL CAPS Take 1 cap po bid x 10 days CEFDINIR 71912360581 No Longer Active Robbie Busby MD Active AMLODIPINE BESYLATE 10 MG TABS 1 tablet by mouth daily AMLODIPINE BESYLATE 54250146787 Active Robbie Busby MD Active CARVEDILOL 25 MG TABS 1 & 1/2 TAB po BID CARVEDILOL 59393051647 Active Robbie Busby MD Active NEXIUM 40 MG CPDR 1 cap by mouth daily ESOMEPRAZOLE MAGNESIUM 58323367996 Active Robbie Busby MD Active PROTONIX 40 MG SOLR 1 po qday for acid reflux PANTOPRAZOLE SODIUM 00441050304 No Longer Active Gali Raida Active KEFLEX 500 MG CAP 1 po TID x 10 days CEPHALEXIN 81882901462 No Longer Active Robbie Busby MD Active TOPIRAMATE 50 MG ORAL TABS take 1 tab po BID for migraines. TOPIRAMATE 69181185594 Active Robbie Busby MD Active TEMAZEPAM 15 MG ORAL CAPS 1 TAB PO Q HS TEMAZEPAM 19152268750 Active Robbie Busby MD Active ALPRAZOLAM 2 MG ORAL TABS 1 TAB PO BID ALPRAZOLAM 69810755748 Active Robbie Busby MD Active FENOFIBRATE 145 MG TABS Take one by mouth daily FENOFIBRATE 24918579086 No Longer Active Robbie Busby MD Active SPIRONOLACTONE 50 MG TABS 1 tablet by mouth twice a day SPIRONOLACTONE 53683360390 No Longer Active Robbie Busby MD Active HYDRALAZINE HCL 25 MG TABS 1 tablet by mouth tid for hypertension HYDRALAZINE HCL 65028246626 No Longer Active Robbie Busby MD Active VIIBRYD 40 MG TABS take 1 tab po qday for depression. VILAZODONE HCL 86793076754 No Longer Active Robbie Busby MD Active TERBINAFINE HCL 250 MG TABS 1 tab po qday for foot infection 2014 TERBINAFINE HCL 38526551522 No Longer Active Robbie Busby MD Active GABAPENTIN 300 MG CAPS 1 po q hs for nerve pain GABAPENTIN 51490568270 Active Robbie Busby MD Active CHERATUSSIN AC 100-10 MG/5ML ORAL SOLN 7.5 mL PO q 4-6 hrs PRN cough GUAIFENESIN-CODEINE 08581927188 No Longer Active Robbie Busby MD Active AZITHROMYCIN 250 MG ORAL TABS 2 tablets PO today---then, 1 tablet PO daily x 4 more days (and 1 optional refill) AZITHROMYCIN 23902966770 No Longer Active Robbie Busby MD Active NORVASC 10 MG TAB 1 tablet by mouth daily AMLODIPINE BESYLATE 21563453289 No Longer Active Alex ALVAREZ Active IMDUR 60 MG TAB CR take 1 tab po qday for blood pressure ISOSORBIDE MONONITRATE Active Robbie Busby MD Active ISOSORBIDE DINITRATE 30 MG TABS Take one by mouth daily ISOSORBIDE DINITRATE 91108242388 No Longer Active Robbie Busby MD Active VIIBRYD 40 MG TABS 1 TA B PO DAILY VILAZODONE HCL 79712356028 Active Robbie Busby MD Active ZITHROMAX 250 MG TAB 2 po today, then 1 po q days 2-5 AZITHROMYCIN 76633264557 No Longer Active Robbie Busby MD Active [id number]-[id number]-2 0.3 MG/24HR PTWK apply 2 patches q week for HTN CLONIDINE HCL 53233161451 Active Robbie Busby MD Active DOXAZOSIN MESYLATE 4 MG TABS Take one by mouth daily DOXAZOSIN MESYLATE 28849873259 Active Robbie Busby MD Active TOPROL XL 200 MG [id number] Take one by mouth daily METOPROLOL SUCCINATE 44073884722 Active Robbie Busby MD Active VENLAFAXINE HCL ER 150 MG [id number]-SUX Take one by mouth daily VENLAFAXINE HCL 89048097305 Active Robbie Busby MD Active LIPITOR 40 MG TABS Take one by mouth daily ATORVASTATIN CALCIUM 07472535288 Active Robbie Busby MD Active ISOSORBIDE DINITRATE 30 MG TABS Take one by mouth daily ISOSORBIDE DINITRATE 30 MG TABS 423390 ISOSORBIDE DINITRATE Inactive NORVASC 10 MG TAB 1 tablet by mouth daily NORVASC 10 MG TAB 566519 AMLODIPINE BESYLATE Inactive AZITHROMYCIN 250 MG ORAL TABS 2 tablets PO today---then, 1 tablet PO daily x 4 more days (and 1 optional refill) AZITHROMYCIN 250 MG ORAL TABS 8492220 AZITHROMYCIN Inactive CHERATUSSIN AC 100-10 MG/5ML ORAL SOLN 7.5 mL PO q 4-6 hrs PRN cough CHERATUSSIN AC 100-10 MG/5ML ORAL SOLN 313425 GUAIFENESIN- CODEINE Inactive VIIBRYD 40 MG TABS take 1 tab po qday for depression. VIIBRYD 40 MG TABS VILAZODONE HCL Inactive HYDRALAZINE HCL 25 MG TABS 1 tablet by mouth tid for hypertension HYDRALAZINE HCL 25 MG TABS 876712 HYDRALAZINE HCL Inactive SPIRONOLACTONE 50 MG TABS 1 tablet by mouth twice a day SPIRONOLACTONE 50 MG TABS 552593 SPIRONOLACTONE Inactive FENOFIBRATE 145 MG TABS Take one by mouth daily FENOFIBRATE 145 MG TABS 761306 FENOFIBRATE Inactive PROTONIX 40 MG SOLR 1 po qday for acid reflux PROTONIX 40 MG SOLR 963037 PANTOPRAZOLE SODIUM Inactive CEFDINIR 300 MG ORAL CAPS Take 1 cap po bid x 10 days CEFDINIR 300 MG ORAL CAPS 770099 CEFDINIR Inactive PREDNISONE 20 MG TAB 1 tablet twice daily for 2 days, then 1 tablet once daily for 2 days PREDNISONE 20 MG TAB 468886 PREDNISONE Inactive NYSTATIN 054457 UNIT/ML M/T SUSP 5mL po QID x 10 days NYSTATIN 668836 UNIT/ML M/T SUSP 119535 NYSTATIN Inactive BETADINE 10 % EXT SOLN wash with solution to treat follicultis BETADINE 10 % EXT SOLN 1414248 POVIDONE-IODINE Inactive TRILEPTAL 150 MG ORAL TABS 1 TAB PO Q HS TRILEPTAL 150 MG ORAL TABS 918903 OXCARBAZEPINE Inactive LAMISIL 125 MG ORAL PACK 1 TAB PO DAILY LAMISIL 125 MG ORAL PACK TERBINAFINE HCL Inactive HYDROCHLOROTHIAZIDE TABS Take one by mouth daily HYDROCHLOROTHIAZIDE TABS HYDROCHLOROTHIAZIDE TABS Inactive HYDROCODONE-ACETAMINOPHEN 5-325 MG TABS 1 tab by mouth BID prn back pain 2013 HYDROCODONE-ACETAMINOPHEN 5-325 MG TABS 714475 HYDROCODONE -ACETAMINOPHEN Inactive HYDRALAZINE HCL 50 MG ORAL TABS TWO BY MOUTH THREE TIMES DAILY HYDRALAZINE HCL 50 MG ORAL TABS 175140 HYDRALAZINE HCL Inactive LEVAQUIN 500 MG TAB 1 tablet by mouth daily for 7 days LEVAQUIN 500 MG TAB 665304 LEVOFLOXACIN Inactive SPIRONOLACTONE 25 MG TAB 4 tablets by mouth daily SPIRONOLACTONE 25 MG TAB 899878 SPIRONOLACTONE Inactive MECLIZINE HCL 25 MG TAB one 4 times a day as needed for dizziness MECLIZINE HCL 25 MG TAB 508379 MECLIZINE HCL Inactive CLONIDINE HCL 0.2 MG ORAL TABS 1 TAB BY MOUTH EVERY 8 HOURS 12/29 CLONIDINE HCL 0.2 MG ORAL TABS 425511 CLONIDINE HCL Inactive CYCLOBENZAPRINE HCL 10 MG TABS 1 tablet by mouth three times daily as needed for muscle spasm/pain for 10 days CYCLOBENZAPRINE HCL 10 MG TABS 584248 CYCLOBENZAPRINE HCL Inactive VITAMIN D3 30083 UNIT CAPS 2 CAPS PO WEEKLY VITAMIN D3 76260 UNIT CAPS CHOLECALCIFEROL Inactive FIORICET 50-300-40 MG ORAL CAPS take 1 tab po qday prn migraines. FIORICET 50-300-40 MG ORAL CAPS 811874 FHASPHOGZG-MNNC-ALHOMLKE Inactive FLONASE 50 MCG/ACT SUSP 1 spray each nostril twice daily for allergies and runny nose FLONASE 50 MCG/ACT SUSP 7501616 FLUTICASONE PROPIONATE Inactive LORATADINE 10 MG TABS 1 tablet by mouth daily for congestion and allergies. LORATADINE 10 MG TABS 371168 LORATADINE Inactive NITROSTAT 0.4 MG SUBL PRN NITROSTAT 0.4 MG SUBL 147202 NITROGLYCERIN Inactive ZITHROMAX 250 MG TAB 2 po today, then 1 po q days 2-5 ZITHROMAX 250 MG TAB 4737166 AZITHROMYCIN Inactive TERBINAFINE HCL 250 MG TABS 1 tab po qday for foot infection 2014 TERBINAFINE HCL 250 MG TABS 123892 TERBINAFINE HCL Inactive KEFLEX 500 MG CAP 1 po TID x 10 days KEFLEX 500 MG CAP 371914 CEPHALEXIN Inactive BACTRIM DS 800-160 MG TAB 1 tab by mouth twice daily BACTRIM DS 800-160 MG TAB 483255 TRIMETHOPRIM-SULFAMETHOXAZOLE Inactive PREDNISONE 20 MG TAB take 3 tabs daily for 3 days, 2 tabs daily for 3 days, 1 tab daily for 3 days, 1/2 tab daily for 4 days PREDNISONE 20 MG TAB 585786 PREDNISONE Inactive Advance Directives Directive Description Start [...] Measured blood pressure, diastolic 111 mm[Hg] BP dle rio blood pressure, systolic 200 mm[Hg] BP [...] AUTO - Chemistry sodium, serum 142 mmol/L 400-118 3066/07/17 carbon dioxide, venous blood 28.2 mmol/L 21.0-32.0 [...] % 11.0-15.0 platelet count 185 THOUSAND/UL 10*3/mm3 031-984 0064/04/14 mean platelet volume 10.9 fL 7.5-12.5 Lab Report: LIPID PANEL, TSH/899, T4, FREE/866 - Chemistry cholesterol, serum 220 mg/dL 545-810 4444/04/14 HDL cholesterol, serum 30 mg/dL > OR=40 triglyceride, serum, fasting 466 mg/dL <150 LDL cholesterol, serum SEE NOTE mg/dL (calc) mg/dL <130 cholesterol/HDL ratio, serum 7.3 (calc) < OR=5.0 Lab Report: MICROALB/CREAT W/RATIO - Chemistry albumin/creatinine ratio, urine < 30 mg/g mg/g{creat} 0-29 Lab Report: MICROALB/CREAT W/RATIO - Lab microalbumin, urine 80 0-19 Lab Report: VITAMIN D, 25-HYDROXY/72796 - Chemistry vitamin D 25-hydroxy, serum 25 ng/mL 30-100 Office Visit: Confusion, dizziness after fall - Basic LDL target level 130 mg/dL Office Visit: Confusion, dizziness after fall - Chemistry HDL cholesterol, serum, target level 40 mg/dL triglyceride, target level 150 mg/dL cholesterol, target level 200 mg/dL Encounters Code Encounter Date Provider Facility CPT-41449 Level 3 Est. Patient 09:00:37 CDT Rober Rodríguez [facility] CPT-30232 Level 3 Est. Patient 16:07:10 CDT Robbie Busby MD [facility] CPT-86377 Level 4 Est. Patient 11:56:16 CDT Erin Garsia [facility] CPT-24959 Level 3 Est. Patient 17:48:02 CDT Robbie Busby MD [facility] CPT-60431 Level 4 Est. 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 CPT-98524 Level 3 Est. Patient 09:16:37 CDT Robbie Busby MD [facility] CPT-91093 Level 3 Est. Patient 19:38:43 CDT Robibe Busby MD [facility] CPT-61532 Level 3 Est. Patient 11:53:38 CDT Robbie Busby MD [facility] CPT-23471 Level 4 Est. Patient 12:52:22 CDT Rober Rodríguez [facility] CPT-86846 Level 4 Est. Patient 22:55:17 CDT Robbie Busby MD [facility] CPT-67803 Level 3 Est. Patient 12:38:24 CDT Desmond Diaz DO [facility] CPT-42310 Level 4 Est. Patient 11:25:03 RESAW OPERATOR Robbie Busby MD [facility] CPT-96789 Level 4 Est. Patient 14:50:10 CDT Robbie Busby MD [facility] CPT-63111 Level 4 Est. Patient 23:30:43 CDT Robbie Busby MD [facility] CPT-26938 Level 4 Est. Patient 10:30:43 CDT Robbie Busby MD [facility] CPT-80309 Level 3 Est. Patient 17:08:12 CDT Alex ALVAREZ [facility] CPT-44392 Level 4 Est. Patient 17:51:38 CDT Robbie Busby MD [facility] CPT-23589 Level 4 Est. Patient 14:00:21 CDT Robbie Busby MD [facility] CPT-14056 Level 4 Est. Patient 12:46:48 CDT Robbie Busby MD [facility] CPT-42348 Level 4 Est. Patient 13:34:33 CDT Robbie Busby MD [facility] CPT-48173 Level 4 Est. Patient 16:58:28 CDT Robbie Busby MD [facility] CPT-15923 Level 3 Est. Patient 19:36:53 CDT Alex Shaw [facility] CPT-99309 Level 3 Est. Patient 12:58:15 CDT Robbie Busby MD [facility] Procedures Code Procedure Name Date Entry Date Standard Description CPT-12974 Venipuncture Draw Fee 14:39:06 CDT CPT-72650 Ribs unilateral 2V - XRAY USE ONLY 12:10:11 CDT CPT-06638 First Vx - Ix admin for Medicare patients 16:32:53 CDT CPT-90144 Boostrix Intramuscular Suspension 5-2.5-18.5 16:32:53 CDT CPT-65157 TB Skin Test 11:42:28 CDT CPT-17158 Tdap 7yrs or > 11:42:28 CDT CPT-J0696 Rocephin 1000 mg (Ceftriaxone) 17:43:43 RESAW OPERATOR CPT-J1040 Depo Medrol 80 mg (Methyl Prednisolone Acetate) 17:43: 43 RESAW OPERATOR CPT-J1100 Decadron 8mg (Dexamethasone) 17:43:42 RESAW OPERATOR CPT-88462 Abx/Therapy Injection 17:43:42 RESAW OPERATOR CPT-45856 Abx/Therapy Injection 17:43:42 RESAW OPERATOR CPT-J1040 Depo Medrol 80 mg (Methyl Prednisolone Acetate) 09:43: 34 RESAW OPERATOR CPT-J1100 Decadron 8mg (Dexamethasone) 09:43:34 RESAW OPERATOR CPT-J0696 Rocephin 1gm Inj Solr 09:43:34 RESAW OPERATOR CPT-30104 Wound Culture - LAB USE ONLY 14:00:21 CDT CPT-I/D I/D Abscess 09:16:37 CDT CPT-58870 Venipuncture Draw Fee 15:20:23 CDT CPT-01984 Microalbumin - LAB USE ONLY 16:02:19 CDT CPT-08046 CBC - LAB USE ONLY 16:02:19 CDT CPT-76362 Venipuncture Draw Fee 16:02:19 CDT CPT-G0438 Initial Annual Wellness Exam 08:10:28 CDT CPT-91342 Venipuncture Draw Fee 13:07:17 CDT CPT-G0008 Administration of Influenza Virus Vaccine 16:09:59 CDT CPT-88912 Fluzone Quadrivalent Intramuscular Suspension 0.5 ML 16: 09:59 CDT CPT-74034 Spec Collection and Handling Fee 15:05:50 CDT
--- OUTSIDE RECORDS SUMMARY | 2018-04-18 12:32 | XMS REPORT | Clinical Summary ---
Author Author Admin, [facility] Organization [facility] Address Unknown Phone Unavailable Allergies, Adverse [...] tablet once daily for 2 days PREDNISONE 86423862176 Active Desmond Diaz DO Active NEXIUM 40 MG CPDR 1 cap by mouth daily ESOMEPRAZOLE MAGNESIUM 57938489608 Active Gali Raida Active PROTONIX 40 MG SOLR 1 po qday for acid reflux PANTOPRAZOLE SODIUM 56939270103 No Longer Active Gali Rajuan carlos Active BETADINE 10 % EXT SOLN wash with solution to treat follicultis POVIDONE-IODINE 45779014233 Active Robbie Busby MD Active KEFLEX 500 MG CAP 1 po TID x 10 days CEPHALEXIN 30623022259 No Longer Active Robbie Busby MD Active FIORICET 50-300-40 MG ORAL CAPS take 1 tab po qday prn migraines. [id number] 49923823798 Active Robbie Busby MD Active TOPIRAMATE 50 MG ORAL TABS take 1 tab po BID for migraines. TOPIRAMATE 82807464223 Active Robbie Busby MD Active HYDRALAZINE HCL 50 MG ORAL TABS TWO BY MOUTH THREE TIMES DAILY HYDRALAZINE HCL 83136820790 Active Robbie Busby MD Active MECLIZINE HCL 25 MG TAB one 4 times a day as needed for dizziness MECLIZINE HCL 22815194141 Active Robbie Busby MD Active TRILEPTAL 150 MG ORAL TABS 1 TAB PO Q HS OXCARBAZEPINE 37443134856 Active Robbie Busby MD Active TEMAZEPAM 15 MG ORAL CAPS 1 TAB PO Q HS TEMAZEPAM 20548768034 Active Robbie Busby MD Active ALPRAZOLAM 2 MG ORAL TABS 1 TAB PO BID ALPRAZOLAM 25486692474 Active Robbie Busby MD Active FENOFIBRATE 145 MG TABS Take one by mouth daily FENOFIBRATE 96904229415 No Longer Active Robbie Busby MD Active LAMISIL 125 MG ORAL PACK 1 TAB PO DAILY TERBINAFINE HCL 03715018401 Active Robbie Busby MD Active SPIRONOLACTONE 50 MG TABS 1 tablet by mouth twice a day SPIRONOLACTONE 93324718576 No Longer Active Robbie Busby MD Active HYDRALAZINE HCL 25 MG TABS 1 tablet by mouth tid for hypertension HYDRALAZINE HCL 04475478301 No Longer Active Robbie Busby MD Active VIIBRYD 40 MG TABS take 1 tab po qday for depression. VILAZODONE HCL 78035975587 No Longer Active Robbie Busby MD Active TERBINAFINE HCL 250 MG TABS 1 tab po qday for foot infection 2014 TERBINAFINE HCL 77303438940 No Longer Active Robbie Busby MD Active GABAPENTIN 300 MG CAPS 1 po q hs for nerve pain GABAPENTIN 29663051871 Active Erin Garsia APRN Active FLONASE 50 MCG/ACT SUSP 1 spray each nostril twice daily for allergies and runny nose FLUTICASONE PROPIONATE 66732365479 Active Robbie Busby MD Active CHERATUSSIN AC 100-10 MG/5ML ORAL SOLN 7.5 mL PO q 4-6 hrs PRN cough GUAIFENESIN-CODEINE 85946620149 No Longer Active Robbie Busby MD Active AZITHROMYCIN 250 MG ORAL TABS 2 tablets PO today---then, 1 tablet PO daily x 4 more days (and 1 optional refill) AZITHROMYCIN 24190201653 No Longer Active Robbie Busby MD Active CLONIDINE HCL 0.2 MG ORAL TABS 1 TAB BY MOUTH EVERY 8 HOURS CLONIDINE HCL 58662489881 Active Robbie Busby MD Active HYDROCHLOROTHIAZIDE TABS Take one by mouth daily HYDROCHLOROTHIAZIDE TABS 13615060563 Active Alex ALVAREZ Active NORVASC 10 MG TAB 1 tablet by mouth daily AMLODIPINE BESYLATE 18994272980 No Longer Active Alex ALVAREZ Active IMDUR 60 MG TAB CR take 1 tab po qday for blood pressure ISOSORBIDE MONONITRATE Active Robbie Busby MD Active ISOSORBIDE DINITRATE 30 MG TABS Take one by mouth daily ISOSORBIDE DINITRATE 00805320335 No Longer Active Robbie Busby MD Active VIIBRYD 40 MG TABS 1 TA B PO DAILY VILAZODONE HCL 76427109125 Active Robbie Busby MD Active LORATADINE 10 MG TABS 1 tablet by mouth daily for congestion and allergies. LORATADINE 29392781523 Active Robbie Busby MD Active ZITHROMAX 250 MG TAB 2 po today, then 1 po q days 2-5 AZITHROMYCIN 37618224357 No Longer Active Robbie Busby MD Active HYDROCODONE-ACETAMINOPHEN 5-325 MG TABS 1 tab by mouth BID prn back pain 2013 HYDROCODONE-ACETAMINOPHEN 59607984651 Active Robbie Busby MD Active YXBYICAH-MOS-5 0.3 MG/24HR PTWK apply 2 patches q week for HTN CLONIDINE HCL 60720944216 Active Robbie Busby MD Active NITROSTAT 0.4 MG SUBL PRN NITROGLYCERIN 10241967532 Active Robbie Busby MD Active DOXAZOSIN MESYLATE 4 MG TABS Take one by mouth daily DOXAZOSIN MESYLATE 29534694804 Active Robbie Busby MD Active TOPROL XL 200 MG [id number] Take one by mouth daily METOPROLOL SUCCINATE 48008646862 Active Robbie Busby MD Active VENLAFAXINE HCL ER 150 MG [id number] Take one by mouth daily VENLAFAXINE HCL 71737714868 Active Robbie Busby MD Active LIPITOR 40 MG TABS Take one by mouth daily ATORVASTATIN CALCIUM 64751797773 Active Robbie Busby MD Active ISOSORBIDE DINITRATE 30 MG TABS Take one by mouth daily ISOSORBIDE DINITRATE 30 MG TABS 404727 ISOSORBIDE DINITRATE Inactive NORVASC 10 MG TAB 1 tablet by mouth daily NORVASC 10 MG TAB 437468 AMLODIPINE BESYLATE Inactive AZITHROMYCIN 250 MG ORAL TABS 2 tablets PO today---then, 1 tablet PO daily x 4 more days (and 1 optional refill) AZITHROMYCIN 250 MG ORAL TABS 0149113 AZITHROMYCIN Inactive CHERATUSSIN AC 100-10 MG/5ML ORAL SOLN 7.5 mL PO q 4-6 hrs PRN cough CHERATUSSIN AC 100-10 MG/5ML ORAL SOLN 403773 GUAIFENESIN- CODEINE Inactive VIIBRYD 40 MG TABS take 1 tab po qday for depression. VIIBRYD 40 MG TABS VILAZODONE HCL Inactive HYDRALAZINE HCL 25 MG TABS 1 tablet by mouth tid for hypertension HYDRALAZINE HCL 25 MG TABS 411175 HYDRALAZINE HCL Inactive SPIRONOLACTONE 50 MG TABS 1 tablet by mouth twice a day SPIRONOLACTONE 50 MG TABS 361056 SPIRONOLACTONE Inactive FENOFIBRATE 145 MG TABS Take one by mouth daily FENOFIBRATE 145 MG TABS 671691 FENOFIBRATE Inactive PROTONIX 40 MG SOLR 1 po qday for acid reflux PROTONIX 40 MG SOLR PANTOPRAZOLE SODIUM Inactive ZITHROMAX 250 MG TAB 2 po today, then 1 po q days 2-5 ZITHROMAX 250 MG TAB 3362849 AZITHROMYCIN Inactive TERBINAFINE HCL 250 MG TABS 1 tab po qday for foot infection 2014 TERBINAFINE HCL 250 MG TABS 170042 TERBINAFINE HCL Inactive KEFLEX 500 MG CAP 1 po TID x 10 days KEFLEX 500 MG CAP 656428 CEPHALEXIN Inactive Vital Signs Date Name Value [...] PANEL - Chemistry cholesterol, serum 211 mg/dL 709-355 2010/08/31 triglyceride, serum, fasting 429 mg/dL 30-200 HDL [...] Negative Encounters Code Encounter Date Provider Facility [id number] Level 3 Est. Patient 12:38:24 CDT Desmond Diaz DO [facility] CPT-04601 Level 4 Est. Patient 11:25:03 BUSINESS ATTORNEY Robbie Busby MD [facility]-36576 Level 4 Est. Patient 14:50:10 CDT Robbie Busby MD [facility]-44427 Level 4 Est. Patient 23:30:43 CDT Robbie Busby MD [facility]-85883 Level 4 Est. Patient 10:30:43 CDT Robbie Busby MD [facility]-05880 Level 3 Est. Patient 17:08:12 CDT Alex Shaw [facility] CPT-36950 Level 4 Est. Patient 17:51:38 CDT Robbie Busby MD [facility]-80696 Level 4 Est. Patient 14:00:21 CDT Robbie Bubsy MD [facility]-10474 Level 4 Est. Patient 12:46:48 CDT Robbie Busby MD [facility]-88119 Level 4 Est. Patient 13:34:33 CDT Robbie Busby MD [facility]-72922 Level 4 Est. Patient 16:58:28 CDT Robbie Busby MD [facility]-06390 Level 3 Est. Patient 19:36:53 CDT Alex Shaw [facility]-24215 Level 3 Est. Patient 12:58:15 CDT Robbie Busby MD [facility] Procedures Code Procedure Name Date Entry Date Standard Description CPT-G0008 Administration of Influenza Virus Vaccine 16:09:59 CDT CPT-88820 Fluzone Quadrivalent Intramuscular Suspension 0.5 ML 16: 09:59 CDT CPT-38427 Spec Collection and Handling Fee 15:05:50 CDT
--- OUTSIDE RECORDS SUMMARY | 2018-04-18 12:33 | XMS REPORT | Clinical Summary ---
Author Author Admin, Nicolas Organization [facility] Address Unknown Phone Unavailable Allergies, Adverse [...] Low back pain, chronic 724.2 Active Robbie uBsby MD Lumbago Degenerative arthritis 715.90 Active Robbie [...] cap po bid x 10 days CEFDINIR 85441008891 Active Jackie Junior MA Active PREDNISONE 20 MG TAB 1 tablet twice daily for 2 days, then 1 tablet once daily for 2 days PREDNISONE 40197720197 Active Desmond Diaz DO Active NEXIUM 40 MG CPDR 1 cap by mouth daily ESOMEPRAZOLE MAGNESIUM 74194086925 Active Gali Negro Active PROTONIX 40 MG SOLR 1 po qday for acid reflux PANTOPRAZOLE SODIUM 90593675409 No Longer Active Gali Negro Active BETADINE 10 % EXT SOLN wash with solution to treat follicultis POVIDONE-IODINE 35308761068 Active Robbie Busby MD Active KEFLEX 500 MG CAP 1 po TID x 10 days CEPHALEXIN 11259218840 No Longer Active Robbie Busby MD Active FIORICET 50-300-40 MG ORAL CAPS take 1 tab po qday prn migraines. [id number] 13956920496 Active Robbie Busby MD Active TOPIRAMATE 50 MG ORAL TABS take 1 tab po BID for migraines. TOPIRAMATE 17679041282 Active Robbie Busby MD Active HYDRALAZINE HCL 50 MG ORAL TABS TWO BY MOUTH THREE TIMES DAILY HYDRALAZINE HCL 17722715463 Active Robbie Busby MD Active MECLIZINE HCL 25 MG TAB one 4 times a day as needed for dizziness MECLIZINE HCL 00591316597 Active Robbie Busby MD Active TRILEPTAL 150 MG ORAL TABS 1 TAB PO Q HS OXCARBAZEPINE 01520371397 Active Robbie Busby MD Active TEMAZEPAM 15 MG ORAL CAPS 1 TAB PO Q HS TEMAZEPAM 55786117407 Active Robbie Busby MD Active ALPRAZOLAM 2 MG ORAL TABS 1 TAB PO BID ALPRAZOLAM 24161067011 Active Robbie Busby MD Active FENOFIBRATE 145 MG TABS Take one by mouth daily FENOFIBRATE 43443265726 No Longer Active Robbie Busby MD Active LAMISIL 125 MG ORAL PACK 1 TAB PO DAILY TERBINAFINE HCL 91678132495 Active Robbie Busby MD Active SPIRONOLACTONE 50 MG TABS 1 tablet by mouth twice a day SPIRONOLACTONE 78253332218 No Longer Active Robbie Busby MD Active HYDRALAZINE HCL 25 MG TABS 1 tablet by mouth tid for hypertension HYDRALAZINE HCL 09842194785 No Longer Active Robbie Busby MD Active VIIBRYD 40 MG TABS take 1 tab po qday for depression. VILAZODONE HCL 89317155275 No Longer Active Robbie Busby MD Active TERBINAFINE HCL 250 MG TABS 1 tab po qday for foot infection 2014 TERBINAFINE HCL 88077393244 No Longer Active Robbie Busby MD Active GABAPENTIN 300 MG CAPS 1 po q hs for nerve pain GABAPENTIN 74954903341 Active Erin Garsia [employer] Active FLONASE 50 MCG/ACT SUSP 1 spray each nostril twice daily for allergies and runny nose FLUTICASONE PROPIONATE 69998367445 Active Robbie Busby MD Active CHERATUSSIN AC 100-10 MG/5ML ORAL SOLN 7.5 mL PO q 4-6 hrs PRN cough GUAIFENESIN-CODEINE 32244190973 No Longer Active Robbie Busby MD Active AZITHROMYCIN 250 MG ORAL TABS 2 tablets PO today---then, 1 tablet PO daily x 4 more days (and 1 optional refill) AZITHROMYCIN 93832637088 No Longer Active Robbie Busby MD Active CLONIDINE HCL 0.2 MG ORAL TABS 1 TAB BY MOUTH EVERY 8 HOURS CLONIDINE HCL 37014182597 Active Robbie Busby MD Active HYDROCHLOROTHIAZIDE TABS Take one by mouth daily HYDROCHLOROTHIAZIDE TABS 68602882844 Active Alex ALVAREZ Active NORVASC 10 MG TAB 1 tablet by mouth daily AMLODIPINE BESYLATE 47373910620 No Longer Active Alex ALVAREZ Active IMDUR 60 MG TAB CR take 1 tab po qday for blood pressure ISOSORBIDE MONONITRATE Active Robbie Busby MD Active ISOSORBIDE DINITRATE 30 MG TABS Take one by mouth daily ISOSORBIDE DINITRATE 74508975355 No Longer Active Robbie Busby MD Active VIIBRYD 40 MG TABS 1 TA B PO DAILY VILAZODONE HCL 47700668399 Active Robbie Busby MD Active LORATADINE 10 MG TABS 1 tablet by mouth daily for congestion and allergies. LORATADINE 79400522001 Active Robbie Busby MD Active ZITHROMAX 250 MG TAB 2 po today, then 1 po q days 2-5 AZITHROMYCIN 84445034607 No Longer Active Robbie Busby MD Active HYDROCODONE-ACETAMINOPHEN 5-325 MG TABS 1 tab by mouth BID prn back pain 2013 HYDROCODONE-ACETAMINOPHEN 40425525151 Active Robbie Busby MD Active [id number] 0.3 MG/24HR PTWK apply 2 patches q week for HTN CLONIDINE HCL 39048731003 Active Robbie Busby MD Active NITROSTAT 0.4 MG SUBL PRN NITROGLYCERIN 12695972263 Active Robbie Busby MD Active DOXAZOSIN MESYLATE 4 MG TABS Take one by mouth daily DOXAZOSIN MESYLATE 03063843764 Active Robbie Busby MD Active TOPROL XL 200 MG [id number] Take one by mouth daily METOPROLOL SUCCINATE 11641238164 Active Robbie Busby MD Active VENLAFAXINE HCL ER 150 MG [id number] Take one by mouth daily VENLAFAXINE HCL 94129235269 Active Robbie Busby MD Active LIPITOR 40 MG TABS Take one by mouth daily ATORVASTATIN CALCIUM 62077019595 Active Robbie Busby MD Active ISOSORBIDE DINITRATE 30 MG TABS Take one by mouth daily ISOSORBIDE DINITRATE 30 MG TABS 060065 ISOSORBIDE DINITRATE Inactive NORVASC 10 MG TAB 1 tablet by mouth daily NORVASC 10 MG TAB 389302 AMLODIPINE BESYLATE Inactive AZITHROMYCIN 250 MG ORAL TABS 2 tablets PO today---then, 1 tablet PO daily x 4 more days (and 1 optional refill) AZITHROMYCIN 250 MG ORAL TABS 2364728 AZITHROMYCIN Inactive CHERATUSSIN AC 100-10 MG/5ML ORAL SOLN 7.5 mL PO q 4-6 hrs PRN cough CHERATUSSIN AC 100-10 MG/5ML ORAL SOLN 806712 GUAIFENESIN- CODEINE Inactive VIIBRYD 40 MG TABS take 1 tab po qday for depression. VIIBRYD 40 MG TABS VILAZODONE HCL Inactive HYDRALAZINE HCL 25 MG TABS 1 tablet by mouth tid for hypertension HYDRALAZINE HCL 25 MG TABS 925135 HYDRALAZINE HCL Inactive SPIRONOLACTONE 50 MG TABS 1 tablet by mouth twice a day SPIRONOLACTONE 50 MG TABS 030640 SPIRONOLACTONE Inactive FENOFIBRATE 145 MG TABS Take one by mouth daily FENOFIBRATE 145 MG TABS 085667 FENOFIBRATE Inactive PROTONIX 40 MG SOLR 1 po qday for acid reflux PROTONIX 40 MG SOLR PANTOPRAZOLE SODIUM Inactive ZITHROMAX 250 MG TAB 2 po today, then 1 po q days 2-5 ZITHROMAX 250 MG TAB 1407831 AZITHROMYCIN Inactive TERBINAFINE HCL 250 MG TABS 1 tab po qday for foot infection 2014 TERBINAFINE HCL 250 MG TABS 367578 TERBINAFINE HCL Inactive KEFLEX 500 MG CAP 1 po TID x 10 days KEFLEX 500 MG CAP 500849 CEPHALEXIN Inactive Vital Signs Date Name Value [...] Acid - Chemistry sodium, serum 139 mmol/L 496-119 1271/04/22 carbon dioxide, venous blood 29.4 mmol/L 21.0-32.0 [...] PANEL - Chemistry cholesterol, serum 211 mg/dL 670-846 8660/08/31 triglyceride, serum, fasting 429 mg/dL 30-200 HDL [...] Negative Encounters Code Encounter Date Provider Facility CPT-19334 Level 3 Est. Patient 12:38:24 CDT Desmond Diaz DO [facility] CPT-24528 Level 4 Est. Patient 11:25:03 [employer] ARCH[employer]ECT Robbie Busby MD [facility] CPT-36400 Level 4 Est. Patient 14:50:10 CDT Robbie Busby MD [facility] CPT-64129 Level 4 Est. Patient 23:30:43 CDT Robbie Busby MD [facility] CPT-50854 Level 4 Est. Patient 10:30:43 CDT Robbie Busby MD [facility] CPT-35825 Level 3 Est. Patient 17:08:12 CDT Alex ALVAREZ [facility] CPT-83237 Level 4 Est. Patient 17:51:38 CDT Robbie Busby MD [facility] CPT-07999 Level 4 Est. Patient 14:00:21 CDT Robbie Busby MD [facility] CPT-05173 Level 4 Est. Patient 12:46:48 CDT Robbie Busby MD [facility] CPT-92063 Level 4 Est. Patient 13:34:33 CDT Robbie Busby MD [facility] CPT-41689 Level 4 Est. Patient 16:58:28 CDT Robbie Busby MD [facility] CPT-50853 Level 3 Est. Patient 19:36:53 CDT Alex ALVAREZ [facility] CPT-00271 Level 3 Est. Patient 12:58:15 CDT Robbie Busby MD [facility] Procedures Code Procedure Name Date Entry Date Standard Description CPT-93303 Venipuncture Draw Fee 13:07:17 CDT CPT-G0008 Administration of Influenza Virus Vaccine 16:09:59 CDT CPT-54053 Fluzone Quadrivalent Intramuscular Suspension 0.5 ML 16: 09:59 CDT CPT-00905 Spec Collection and Handling Fee 15:05:50 CDT
--- OUTSIDE RECORDS SUMMARY | 2018-04-18 12:33 | XMS REPORT | Clinical Summary ---
Author Author Admin, [facility] Organization [facility] Address Unknown Phone Unavailable [...] 785.0 Active Rober Rodríguez APRN Tachycardia, unspecified Medication List Medication Instructions Start Date Stop Date Generic Name NDC Status Provider Patient Instruction HYDRALAZINE HCL 50 MG ORAL TABS TWO BY MOUTH THREE TIMES DAILY HYDRALAZINE HCL 10102442238 No Longer Active Rober Rodríguez APRN Active HYDROCODONE-ACETAMINOPHEN 5-325 MG TABS 1 tab by mouth BID prn back pain 2013 HYDROCODONE-ACETAMINOPHEN 59903897459 No Longer Active Jillina Frazell [employer]ERSON[employer]ERTY Active HYDROCHLOROTHIAZIDE TABS Take one by mouth daily HYDROCHLOROTHIAZIDE TABS 88258206099 No Longer Active Jillina Frazell [employer]ERSON[employer] PROPERTY Active LAMISIL 125 MG ORAL PACK 1 TAB PO DAILY TERBINAFINE HCL 69105368786 No Longer Active Jillina Frazell [employer]ERTY Active TRILEPTAL 150 MG ORAL TABS 1 TAB PO Q HS OXCARBAZEPINE 64440242204 No Longer Active Jillina Frazell [employer]ERTY Active BETADINE 10 % EXT SOLN wash with solution to treat follicultis POVIDONE-IODINE 78638971491 No Longer Active Jillina Frakierstenl [employer]ERTY Active NYSTATIN 554192 UNIT/ML M/T SUSP 5mL po QID x 10 days NYSTATIN 66376755402 No Longer Active Erin Garsia APRN Active PREDNISONE 20 MG TAB 1 tablet twice daily for 2 days, then 1 tablet once daily for 2 days PREDNISONE 16265954456 No Longer Active Robbie Busby MD Active CEFDINIR 300 MG ORAL CAPS Take 1 cap po bid x 10 days CEFDINIR 64106130045 No Longer Active Robbie Busby MD Active AMLODIPINE BESYLATE 10 MG TABS 1 tablet by mouth daily AMLODIPINE BESYLATE 71342105426 Active Robbie Busby MD Active CARVEDILOL 25 MG TABS 1 & 1/2 TAB po BID CARVEDILOL 40475348457 Active Robbie Busby MD Active VITAMIN D3 71003 UNIT CAPS 2 CAPS PO WEEKLY CHOLECALCIFEROL 36177108486 Active Erin Garsia APRN Active NEXIUM 40 MG CPDR 1 cap by mouth daily ESOMEPRAZOLE MAGNESIUM 03560670470 Active Galileonila Negro Active PROTONIX 40 MG SOLR 1 po qday for acid reflux PANTOPRAZOLE SODIUM 87457998087 No Longer Active Gali Negro Active KEFLEX 500 MG CAP 1 po TID x 10 days CEPHALEXIN 44087396959 No Longer Active Robbie Busby MD Active FIORICET 50-300-40 MG ORAL CAPS take 1 tab po qday prn migraines. [id number] 82752525252 Active Robbie Busby MD Active TOPIRAMATE 50 MG ORAL TABS take 1 tab po BID for migraines. TOPIRAMATE 89911123714 Active Robbie Busby MD Active MECLIZINE HCL 25 MG TAB one 4 times a day as needed for dizziness MECLIZINE HCL 85180805417 Active Robbie Busby MD Active TEMAZEPAM 15 MG ORAL CAPS 1 TAB PO Q HS TEMAZEPAM 90146453226 Active Robbie Busby MD Active ALPRAZOLAM 2 MG ORAL TABS 1 TAB PO BID ALPRAZOLAM 90034333336 Active Robbie Busby MD Active FENOFIBRATE 145 MG TABS Take one by mouth daily FENOFIBRATE 25871361930 No Longer Active Robbie Busby MD Active SPIRONOLACTONE 50 MG TABS 1 tablet by mouth twice a day SPIRONOLACTONE 86876537404 No Longer Active Robbie Busby MD Active HYDRALAZINE HCL 25 MG TABS 1 tablet by mouth tid for hypertension HYDRALAZINE HCL 32088721931 No Longer Active Robbie Busby MD Active VIIBRYD 40 MG TABS take 1 tab po qday for depression. VILAZODONE HCL 24976072364 No Longer Active Robbie Busby MD Active TERBINAFINE HCL 250 MG TABS 1 tab po qday for foot infection 2014 TERBINAFINE HCL 31226012734 No Longer Active Robbie Busby MD Active GABAPENTIN 300 MG CAPS 1 po q hs for nerve pain GABAPENTIN 28371317000 Active Robbie Busby MD Active FLONASE 50 MCG/ACT SUSP 1 spray each nostril twice daily for allergies and runny nose FLUTICASONE PROPIONATE 84613662632 Active Robbie Busby MD Active CHERATUSSIN AC 100-10 MG/5ML ORAL SOLN 7.5 mL PO q 4-6 hrs PRN cough GUAIFENESIN-CODEINE 33348772985 No Longer Active Robbie Busby MD Active AZITHROMYCIN 250 MG ORAL TABS 2 tablets PO today---then, 1 tablet PO daily x 4 more days (and 1 optional refill) AZITHROMYCIN 99600998649 No Longer Active Robbie Busby MD Active CLONIDINE HCL 0.2 MG ORAL TABS 1 TAB BY MOUTH EVERY 8 HOURS CLONIDINE HCL 70553607834 Active Robbie Busby MD Active NORVASC 10 MG TAB 1 tablet by mouth daily AMLODIPINE BESYLATE 62242753643 No Longer Active Alex ALVAREZ Active IMDUR 60 MG TAB CR take 1 tab po qday for blood pressure ISOSORBIDE MONONITRATE Active Robbie Busby MD Active ISOSORBIDE DINITRATE 30 MG TABS Take one by mouth daily ISOSORBIDE DINITRATE 66311009966 No Longer Active Robbie Busby MD Active VIIBRYD 40 MG TABS 1 TA B PO DAILY VILAZODONE HCL 64117070537 Active Robbie Busby MD Active LORATADINE 10 MG TABS 1 tablet by mouth daily for congestion and allergies. LORATADINE 71230659248 Active Robbie Busby MD Active ZITHROMAX 250 MG TAB 2 po today, then 1 po q days 2-5 AZITHROMYCIN 02114676609 No Longer Active Robbie Busby MD Active [id number] 0.3 MG/24HR PTWK apply 2 patches q week for HTN CLONIDINE HCL 72603638999 Active Robbie Busby MD Active NITROSTAT 0.4 MG SUBL PRN NITROGLYCERIN 33064898576 Active Robbie Busby MD Active DOXAZOSIN MESYLATE 4 MG TABS Take one by mouth daily DOXAZOSIN MESYLATE 00264829769 Active Robbie Busby MD Active TOPROL XL 200 MG [id number]-SPF Take one by mouth daily METOPROLOL SUCCINATE 69674309264 Active Robbie Busby MD Active VENLAFAXINE HCL ER 150 MG [id number] Take one by mouth daily VENLAFAXINE HCL 10624101575 Active Robbie Busby MD Active LIPITOR 40 MG TABS Take one by mouth daily ATORVASTATIN CALCIUM 94676102704 Active Robbie Busby MD Active ISOSORBIDE DINITRATE 30 MG TABS Take one by mouth daily ISOSORBIDE DINITRATE 30 MG TABS 045164 ISOSORBIDE DINITRATE Inactive NORVASC 10 MG TAB 1 tablet by mouth daily NORVASC 10 MG TAB 804052 AMLODIPINE BESYLATE Inactive AZITHROMYCIN 250 MG ORAL TABS 2 tablets PO today---then, 1 tablet PO daily x 4 more days (and 1 optional refill) AZITHROMYCIN 250 MG ORAL TABS 6998701 AZITHROMYCIN Inactive CHERATUSSIN AC 100-10 MG/5ML ORAL SOLN 7.5 mL PO q 4-6 hrs PRN cough CHERATUSSIN AC 100-10 MG/5ML ORAL SOLN 933972 GUAIFENESIN- CODEINE Inactive VIIBRYD 40 MG TABS take 1 tab po qday for depression. VIIBRYD 40 MG TABS VILAZODONE HCL Inactive HYDRALAZINE HCL 25 MG TABS 1 tablet by mouth tid for hypertension HYDRALAZINE HCL 25 MG TABS 857059 HYDRALAZINE HCL Inactive SPIRONOLACTONE 50 MG TABS 1 tablet by mouth twice a day SPIRONOLACTONE 50 MG TABS 443233 SPIRONOLACTONE Inactive FENOFIBRATE 145 MG TABS Take one by mouth daily FENOFIBRATE 145 MG TABS 315540 FENOFIBRATE Inactive PROTONIX 40 MG SOLR 1 po qday for acid reflux PROTONIX 40 MG SOLR 428975 PANTOPRAZOLE SODIUM Inactive CEFDINIR 300 MG ORAL CAPS Take 1 cap po bid x 10 days CEFDINIR 300 MG ORAL CAPS 826486 CEFDINIR Inactive PREDNISONE 20 MG TAB 1 tablet twice daily for 2 days, then 1 tablet once daily for 2 days PREDNISONE 20 MG TAB 466975 PREDNISONE Inactive NYSTATIN 694952 UNIT/ML M/T SUSP 5mL po QID x 10 days NYSTATIN 475285 UNIT/ML M/T SUSP 339072 NYSTATIN Inactive BETADINE 10 % EXT SOLN wash with solution to treat follicultis BETADINE 10 % EXT SOLN 6293343 POVIDONE-IODINE Inactive TRILEPTAL 150 MG ORAL TABS 1 TAB PO Q HS TRILEPTAL 150 MG ORAL TABS 531739 OXCARBAZEPINE Inactive LAMISIL 125 MG ORAL PACK 1 TAB PO DAILY LAMISIL 125 MG ORAL PACK TERBINAFINE HCL Inactive HYDROCHLOROTHIAZIDE TABS Take one by mouth daily HYDROCHLOROTHIAZIDE TABS HYDROCHLOROTHIAZIDE TABS Inactive HYDROCODONE-ACETAMINOPHEN 5-325 MG TABS 1 tab by mouth BID prn back pain 2013 HYDROCODONE-ACETAMINOPHEN 5-325 MG TABS 720382 HYDROCODONE -ACETAMINOPHEN Inactive HYDRALAZINE HCL 50 MG ORAL TABS TWO BY MOUTH THREE TIMES DAILY HYDRALAZINE HCL 50 MG ORAL TABS 345687 HYDRALAZINE HCL Inactive ZITHROMAX 250 MG TAB 2 po today, then 1 po q days 2-5 ZITHROMAX 250 MG TAB 6351257 AZITHROMYCIN Inactive TERBINAFINE HCL 250 MG TABS 1 tab po qday for foot infection 2014 TERBINAFINE HCL 250 MG TABS 728991 TERBINAFINE HCL Inactive KEFLEX 500 MG CAP 1 po TID x 10 days KEFLEX 500 MG CAP 308569 CEPHALEXIN Inactive Advance Directives Directive Description Start [...] Acid - Chemistry sodium, serum 139 mmol/L 763-815 0779/04/22 carbon dioxide, venous blood 29.4 mmol/L 21.0-32.0 [...] to Follow Negative Lab Report: VITAMIN D, 25-HYDROXY/09864 - Chemistry vitamin D 25-hydroxy, serum 23 ng/mL 30-100 Encounters Code Encounter Date Provider Facility CPT-01697 Level 4 Est. Patient 12:52:22 CDT Rober Rodríguez APRN [facility] CPT-47762 Level 4 Est. Patient 22:55:17 CDT Robbie Busby MD [facility] CPT-70607 Level 3 Est. Patient 12:38:24 CDT Desmond Daiz DO [facility] CPT-44491 Level 4 Est. Patient 11:25:03 [employer] F[employer] Robbie Busby MD [facility] CPT-26708 Level 4 Est. Patient 14:50:10 CDT Robbie Busby MD [facility] CPT-39265 Level 4 Est. Patient 23:30:43 CDT Robbie Busby MD [facility] CPT-98157 Level 4 Est. Patient 10:30:43 CDT Robbie Busby MD [facility] CPT-71359 Level 3 Est. Patient 17:08:12 CDT Alex ALVAREZ [facility] CPT-04680 Level 4 Est. Patient 17:51:38 CDT Robbie Busby MD [facility] CPT-25149 Level 4 Est. Patient 14:00:21 CDT Robbie Busby MD [facility] CPT-54662 Level 4 Est. Patient 12:46:48 CDT Robbie Busby MD [facility] CPT-63551 Level 4 Est. Patient 13:34:33 CDT Robbie Busby MD [facility] CPT-79549 Level 4 Est. Patient 16:58:28 CDT Robbie Busby MD [facility] CPT-84909 Level 3 Est. Patient 19:36:53 CDT Alex ALVAREZ [facility] CPT-39301 Level 3 Est. Patient 12:58:15 CDT Robbie Busby MD [facility] Procedures Code Procedure Name Date Entry Date Standard Description CPT-66238 Venipuncture Draw Fee 15:20:23 CDT CPT-23074 Microalbumin - LAB USE ONLY 16:02:19 CDT CPT-78214 CBC - LAB USE ONLY 16:02:19 CDT CPT-48596 Venipuncture Draw Fee 16:02:19 CDT CPT-G0438 Initial Annual Wellness Exam 08:10:28 CDT CPT-53385 Venipuncture Draw Fee 13:07:17 CDT CPT-G0008 Administration of Influenza Virus Vaccine 16:09:59 CDT CPT-75354 Fluzone Quadrivalent Intramuscular Suspension 0.5 ML 16: 09:59 CDT CPT-42289 Spec Collection and Handling Fee 15:05:50 CDT
--- OUTSIDE RECORDS SUMMARY | 2018-04-18 12:34 | XMS REPORT | Clinical Summary ---
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 Rober Rodríguez [employer] Other malignant secondary hypertension Tachycardia 785.0 Active [...] muscle spasm/pain for 10 days CYCLOBENZAPRINE HCL 54555463762 Active Erin Garsia APRN Active PREDNISONE 20 MG TAB take 3 tabs daily for 3 days, 2 tabs daily for 3 days, 1 tab daily for 3 days, 1/2 tab daily for 4 days PREDNISONE 32132306141 Active Erin Garsia APRN Active CLONIDINE HCL 0.2 MG ORAL TABS 1 TAB BY MOUTH EVERY 8 HOURS 12/29 CLONIDINE HCL 04202520260 No Longer Active Erin Garsia APRN Active MECLIZINE HCL 25 MG TAB one 4 times a day as needed for dizziness MECLIZINE HCL 81458798807 No Longer Active Erin Garsia APRN Active SPIRONOLACTONE 25 MG TAB 4 tablets by mouth daily SPIRONOLACTONE 07722269346 No Longer Active Erin Garsia APRN Active LEVAQUIN 500 MG TAB 1 tablet by mouth daily for 7 days LEVOFLOXACIN 98023694770 No Longer Active Erin Garsia APRN Active BACTRIM DS 800-160 MG TAB 1 tab by mouth twice daily TRIMETHOPRIM-SULFAMETHOXAZOLE 45852968577 No Longer Active Robbie Busby MD Active HYDRALAZINE HCL 50 MG ORAL TABS TWO BY MOUTH THREE TIMES DAILY HYDRALAZINE HCL 50943887086 No Longer Active Jillina Frazell [employer] Active HYDROCODONE-ACETAMINOPHEN 5-325 MG TABS 1 tab by mouth BID prn back pain 2013 HYDROCODONE-ACETAMINOPHEN 42381234155 No Longer Active Jillina Frazell [employer] Active HYDROCHLOROTHIAZIDE TABS Take one by mouth daily HYDROCHLOROTHIAZIDE TABS 87859888972 No Longer Active Jillina Frazell [employer] Active LAMISIL 125 MG ORAL PACK 1 TAB PO DAILY TERBINAFINE HCL 80055480320 No Longer Active Jillina Frazell [employer] Active TRILEPTAL 150 MG ORAL TABS 1 TAB PO Q HS OXCARBAZEPINE 69617528226 No Longer Active Jillina Frazell [employer] Active BETADINE 10 % EXT SOLN wash with solution to treat follicultis POVIDONE-IODINE 35849257568 No Longer Active Jillina Frakierstenl [employer] Active NYSTATIN 062983 UNIT/ML M/T SUSP 5mL po QID x 10 days NYSTATIN 46365510057 No Longer Active Erin Garsia APRN Active PREDNISONE 20 MG TAB 1 tablet twice daily for 2 days, then 1 tablet once daily for 2 days PREDNISONE 64442013192 No Longer Active Robbie Busby MD Active CEFDINIR 300 MG ORAL CAPS Take 1 cap po bid x 10 days CEFDINIR 73966200516 No Longer Active Robbie Busby MD Active AMLODIPINE BESYLATE 10 MG TABS 1 tablet by mouth daily AMLODIPINE BESYLATE 77954816242 Active Robbie Busby MD Active CARVEDILOL 25 MG TABS 1 & 1/2 TAB po BID CARVEDILOL 18261502951 Active Erin Garsia APRN Active VITAMIN D3 07009 UNIT CAPS 2 CAPS PO WEEKLY CHOLECALCIFEROL 79605816990 Active Erin Garsia APRN Active NEXIUM 40 MG CPDR 1 cap by mouth daily ESOMEPRAZOLE MAGNESIUM 82552653920 Active Robbie Busby MD Active PROTONIX 40 MG SOLR 1 po qday for acid reflux PANTOPRAZOLE SODIUM 03968112151 No Longer Active Gali Negro Active KEFLEX 500 MG CAP 1 po TID x 10 days CEPHALEXIN 76289613104 No Longer Active Robbie Busby MD Active FIORICET 50-300-40 MG ORAL CAPS take 1 tab po qday prn migraines. [id number] 66520307120 Active Robbie Busby MD Active TOPIRAMATE 50 MG ORAL TABS take 1 tab po BID for migraines. TOPIRAMATE 21490554116 Active Robbie Busby MD Active TEMAZEPAM 15 MG ORAL CAPS 1 TAB PO Q HS TEMAZEPAM 32961046219 Active Robbie Busby MD Active ALPRAZOLAM 2 MG ORAL TABS 1 TAB PO BID ALPRAZOLAM 16261743182 Active Robbie Busby MD Active FENOFIBRATE 145 MG TABS Take one by mouth daily FENOFIBRATE 94037805315 No Longer Active Robbie Busby MD Active SPIRONOLACTONE 50 MG TABS 1 tablet by mouth twice a day SPIRONOLACTONE 73521859470 No Longer Active Robbie Busby MD Active HYDRALAZINE HCL 25 MG TABS 1 tablet by mouth tid for hypertension HYDRALAZINE HCL 31394355934 No Longer Active Robbie Busby MD Active VIIBRYD 40 MG TABS take 1 tab po qday for depression. VILAZODONE HCL 53477819451 No Longer Active Robbie Busby MD Active TERBINAFINE HCL 250 MG TABS 1 tab po qday for foot infection 2014 TERBINAFINE HCL 23330359929 No Longer Active Robbie Busby MD Active GABAPENTIN 300 MG CAPS 1 po q hs for nerve pain GABAPENTIN 46174804254 Active Robbie Busby MD Active FLONASE 50 MCG/ACT SUSP 1 spray each nostril twice daily for allergies and runny nose FLUTICASONE PROPIONATE 60755192837 Active Robbie Busby MD Active CHERATUSSIN AC 100-10 MG/5ML ORAL SOLN 7.5 mL PO q 4-6 hrs PRN cough GUAIFENESIN-CODEINE 68498085064 No Longer Active Robbie Busby MD Active AZITHROMYCIN 250 MG ORAL TABS 2 tablets PO today---then, 1 tablet PO daily x 4 more days (and 1 optional refill) AZITHROMYCIN 43083903511 No Longer Active Robbie Busby MD Active NORVASC 10 MG TAB 1 tablet by mouth daily AMLODIPINE BESYLATE 39675948796 No Longer Active Alex ALVAREZ Active IMDUR 60 MG TAB CR take 1 tab po qday for blood pressure ISOSORBIDE MONONITRATE Active Robbie Busby MD Active ISOSORBIDE DINITRATE 30 MG TABS Take one by mouth daily ISOSORBIDE DINITRATE 47623149955 No Longer Active Robbie Busby MD Active VIIBRYD 40 MG TABS 1 TA B PO DAILY VILAZODONE HCL 83934659789 Active Robbie Busby MD Active LORATADINE 10 MG TABS 1 tablet by mouth daily for congestion and allergies. LORATADINE 54516366864 Active Robbie Busby MD Active ZITHROMAX 250 MG TAB 2 po today, then 1 po q days 2-5 AZITHROMYCIN 92997763659 No Longer Active Robbie Busby MD Active [id number] 0.3 MG/24HR PTWK apply 2 patches q week for HTN CLONIDINE HCL 18049585813 Active Robbie Busby MD Active NITROSTAT 0.4 MG SUBL PRN NITROGLYCERIN 01888171599 Active Robbie Busby MD Active DOXAZOSIN MESYLATE 4 MG TABS Take one by mouth daily DOXAZOSIN MESYLATE 07073548374 Active Erin Garsia APRN Active TOPROL XL 200 MG [id number] Take one by mouth daily METOPROLOL SUCCINATE 65343940563 Active Robbie Busby MD Active VENLAFAXINE HCL ER 150 MG [id number] Take one by mouth daily VENLAFAXINE HCL 88896680191 Active Robbie Busby MD Active LIPITOR 40 MG TABS Take one by mouth daily ATORVASTATIN CALCIUM 23082377190 Active Robbie Busby MD Active ISOSORBIDE DINITRATE 30 MG TABS Take one by mouth daily ISOSORBIDE DINITRATE 30 MG TABS 896555 ISOSORBIDE DINITRATE Inactive NORVASC 10 MG TAB 1 tablet by mouth daily NORVASC 10 MG TAB 047641 AMLODIPINE BESYLATE Inactive AZITHROMYCIN 250 MG ORAL TABS 2 tablets PO today---then, 1 tablet PO daily x 4 more days (and 1 optional refill) AZITHROMYCIN 250 MG ORAL TABS 8948508 AZITHROMYCIN Inactive CHERATUSSIN AC 100-10 MG/5ML ORAL SOLN 7.5 mL PO q 4-6 hrs PRN cough CHERATUSSIN AC 100-10 MG/5ML ORAL SOLN 278891 GUAIFENESIN- CODEINE Inactive VIIBRYD 40 MG TABS take 1 tab po qday for depression. VIIBRYD 40 MG TABS VILAZODONE HCL Inactive HYDRALAZINE HCL 25 MG TABS 1 tablet by mouth tid for hypertension HYDRALAZINE HCL 25 MG TABS 734324 HYDRALAZINE HCL Inactive SPIRONOLACTONE 50 MG TABS 1 tablet by mouth twice a day SPIRONOLACTONE 50 MG TABS 792603 SPIRONOLACTONE Inactive FENOFIBRATE 145 MG TABS Take one by mouth daily FENOFIBRATE 145 MG TABS 638262 FENOFIBRATE Inactive PROTONIX 40 MG SOLR 1 po qday for acid reflux PROTONIX 40 MG SOLR 474874 PANTOPRAZOLE SODIUM Inactive CEFDINIR 300 MG ORAL CAPS Take 1 cap po bid x 10 days CEFDINIR 300 MG ORAL CAPS 600641 CEFDINIR Inactive PREDNISONE 20 MG TAB 1 tablet twice daily for 2 days, then 1 tablet once daily for 2 days PREDNISONE 20 MG TAB 866700 PREDNISONE Inactive NYSTATIN 479664 UNIT/ML M/T SUSP 5mL po QID x 10 days NYSTATIN 624604 UNIT/ML M/T SUSP 119994 NYSTATIN Inactive BETADINE 10 % EXT SOLN wash with solution to treat follicultis BETADINE 10 % EXT SOLN 4276140 POVIDONE-IODINE Inactive TRILEPTAL 150 MG ORAL TABS 1 TAB PO Q HS TRILEPTAL 150 MG ORAL TABS 459460 OXCARBAZEPINE Inactive LAMISIL 125 MG ORAL PACK 1 TAB PO DAILY LAMISIL 125 MG ORAL PACK TERBINAFINE HCL Inactive HYDROCHLOROTHIAZIDE TABS Take one by mouth daily HYDROCHLOROTHIAZIDE TABS HYDROCHLOROTHIAZIDE TABS Inactive HYDROCODONE-ACETAMINOPHEN 5-325 MG TABS 1 tab by mouth BID prn back pain 2013 HYDROCODONE-ACETAMINOPHEN 5-325 MG TABS 915612 HYDROCODONE -ACETAMINOPHEN Inactive HYDRALAZINE HCL 50 MG ORAL TABS TWO BY MOUTH THREE TIMES DAILY HYDRALAZINE HCL 50 MG ORAL TABS 704606 HYDRALAZINE HCL Inactive LEVAQUIN 500 MG TAB 1 tablet by mouth daily for 7 days LEVAQUIN 500 MG TAB 584074 LEVOFLOXACIN Inactive SPIRONOLACTONE 25 MG TAB 4 tablets by mouth daily SPIRONOLACTONE 25 MG TAB 451718 SPIRONOLACTONE Inactive MECLIZINE HCL 25 MG TAB one 4 times a day as needed for dizziness MECLIZINE HCL 25 MG TAB 445968 MECLIZINE HCL Inactive CLONIDINE HCL 0.2 MG ORAL TABS 1 TAB BY MOUTH EVERY 8 HOURS 12/29 CLONIDINE HCL 0.2 MG ORAL TABS 718433 CLONIDINE HCL Inactive ZITHROMAX 250 MG TAB 2 po today, then 1 po q days 2-5 ZITHROMAX 250 MG TAB 4313480 AZITHROMYCIN Inactive TERBINAFINE HCL 250 MG TABS 1 tab po qday for foot infection 2014 TERBINAFINE HCL 250 MG TABS 044632 TERBINAFINE HCL Inactive KEFLEX 500 MG CAP 1 po TID x 10 days KEFLEX 500 MG CAP 820206 CEPHALEXIN Inactive BACTRIM DS 800-160 MG TAB 1 tab by mouth twice daily BACTRIM DS 800-160 MG TAB 208097 TRIMETHOPRIM-SULFAMETHOXAZOLE Inactive Advance Directives Directive Description Start [...] % 11.0-15.0 platelet count 185 THOUSAND/UL 10*3/mm3 121-993 6392/04/14 mean platelet volume 10.9 fL 7.5-12.5 Lab Report: Comp. Metabolic Panel, Uric Acid - Chemistry sodium, serum 139 mmol/L 798-855 2716/04/22 carbon dioxide, venous blood 29.4 mmol/L 21.0-32.0 [...] FREE/866 - Chemistry cholesterol, serum 220 mg/dL 475-399 6085/04/14 HDL cholesterol, serum 30 mg/dL > OR=40 triglyceride, serum, fasting 466 mg/dL <150 LDL cholesterol, serum SEE NOTE mg/dL (calc) mg/dL <130 cholesterol/HDL ratio, serum 7.3 (calc) < OR=5.0 Lab Report: MICROALB/CREAT W/RATIO - Chemistry albumin/creatinine ratio, urine < 30 mg/g mg/g{creat} 0-29 Lab Report: MICROALB/CREAT W/RATIO - Lab microalbumin, urine 80 0-19 Lab Report: VITAMIN D, 25-HYDROXY/29258 - Chemistry vitamin D 25-hydroxy, serum 23 ng/mL 30-100 Encounters Code Encounter Date Provider Facility CPT-76220 Level 4 Est. Patient 12:00:49 FLY TIER [facility] CPT-91013 Level 3 Est. Patient 09:16:37 CDT Robbie Busby MD [facility] CPT-84477 Level 3 Est. Patient 19:38:43 CDT Robbie Busby MD [facility]-67112 Level 3 Est. Patient 11:53:38 CDT Robbie Busby MD [facility]-59719 Level 4 Est. Patient 12:52:22 CDT Rober Rodríguez [facility] CPT-37990 Level 4 Est. Patient 22:55:17 CDT Robbie Busby MD [facility]-23223 Level 3 Est. Patient 12:38:24 CDT Desmond Diaz DO [facility] CPT-17887 Level 4 Est. Patient 11:25:03 FLY TIER Robbie Busby MD [facility] CPT-51098 Level 4 Est. Patient 14:50:10 CDT Robbie Busby MD [facility] CPT-80820 Level 4 Est. Patient 23:30:43 CDT Robbie Busby MD [facility] CPT-06919 Level 4 Est. Patient 10:30:43 CDT Robbie Busby MD [facility] CPT-88469 Level 3 Est. Patient 17:08:12 CDT Alex ALVAREZ [facility] CPT-44443 Level 4 Est. Patient 17:51:38 CDT Robbie Busby MD [facility] CPT-98751 Level 4 Est. Patient 14:00:21 CDT Robbie Busby MD [facility] CPT-87219 Level 4 Est. Patient 12:46:48 CDT Robbie Busby MD [facility]-30663 Level 4 Est. Patient 13:34:33 CDT Robbie Busby MD [facility] CPT-18751 Level 4 Est. Patient 16:58:28 CDT Robbie Busby MD [facility] CPT-69398 Level 3 Est. Patient 19:36:53 CDT Alex Howell Tashachelsey K[facility] CPT-22239 Level 3 Est. Patient 12:58:15 CDT Robbie Busby MD [facility] Procedures Code Procedure Name Date Entry Date Standard Description CPT-J0696 Rocephin 1000 mg (Ceftriaxone) 17:43:43 FLY TIER CPT-J1040 Depo Medrol 80 mg (Methyl Prednisolone Acetate) 17:43: 43 FLY TIER CPT-J1100 Decadron 8mg (Dexamethasone) 17:43:42 FLY TIER CPT-25442 Abx/Therapy Injection 17:43:42 FLY TIER CPT-46672 Abx/Therapy Injection 17:43:42 FLY TIER CPT-J1040 Depo Medrol 80 mg (Methyl Prednisolone Acetate) 09:43: 34 FLY TIER CPT-J1100 Decadron 8mg (Dexamethasone) 09:43:34 FLY TIER CPT-J0696 Rocephin 1gm Inj Solr 09:43:34 FLY TIER CPT-42233 Wound Culture - LAB USE ONLY 14:00:21 CDT CPT-I/D I/D Abscess 09:16:37 CDT CPT-19269 Venipuncture Draw Fee 15:20:23 CDT CPT-82458 Microalbumin - LAB USE ONLY 16:02:19 CDT CPT-08412 CBC - LAB USE ONLY 16:02:19 CDT CPT-07394 Venipuncture Draw Fee 16:02:19 CDT CPT-G0438 Initial Annual Wellness Exam 08:10:28 CDT CPT-16416 Venipuncture Draw Fee 13:07:17 CDT CPT-G0008 Administration of Influenza Virus Vaccine 16:09:59 CDT CPT-52970 Fluzone Quadrivalent Intramuscular Suspension 0.5 ML 16: 09:59 CDT CPT-97959 Spec Collection and Handling Fee 15:05:50 CDT
--- OUTSIDE RECORDS SUMMARY | 2018-04-18 12:35 | XMS REPORT | Clinical Summary ---
Author Author Admin, AKUA Organization [facility] Address Unknown [...] 1 cap by mouth daily ESOMEPRAZOLE MAGNESIUM 32539371774 Active Galileonila Negro Active PROTONIX 40 MG SOLR 1 po qday for acid reflux PANTOPRAZOLE SODIUM 41837698879 No Longer Active Gali Negro Active BETADINE 10 % EXT SOLN wash with solution to treat follicultis POVIDONE-IODINE 25365258141 Active Robbie Busby MD Active KEFLEX 500 MG CAP 1 po TID x 10 days CEPHALEXIN 89371072589 No Longer Active Robbie Busby MD Active FIORICET 50-300-40 MG ORAL CAPS take 1 tab po qday prn migraines. [id number] 77227915938 Active Robbie Busby MD Active TOPIRAMATE 50 MG ORAL TABS take 1 tab po BID for migraines. TOPIRAMATE 36224877638 Active Robbie Busby MD Active HYDRALAZINE HCL 50 MG ORAL TABS TWO BY MOUTH THREE TIMES DAILY HYDRALAZINE HCL 03226113167 Active Robbie Busby MD Active MECLIZINE HCL 25 MG TAB one 4 times a day as needed for dizziness MECLIZINE HCL 99844777316 Active Robbie Busby MD Active TRILEPTAL 150 MG ORAL TABS 1 TAB PO Q HS OXCARBAZEPINE 85176507745 Active Robbie Busby MD Active TEMAZEPAM 15 MG ORAL CAPS 1 TAB PO Q HS TEMAZEPAM 51564764569 Active Robbie Busby MD Active ALPRAZOLAM 2 MG ORAL TABS 1 TAB PO BID ALPRAZOLAM 26573199762 Active Robbie Busby MD Active FENOFIBRATE 145 MG TABS Take one by mouth daily FENOFIBRATE 34101779051 No Longer Active Robbie Busby MD Active LAMISIL 125 MG ORAL PACK 1 TAB PO DAILY TERBINAFINE HCL 03138032311 Active Robbie Busby MD Active SPIRONOLACTONE 50 MG TABS 1 tablet by mouth twice a day SPIRONOLACTONE 21727500054 No Longer Active Robbie Busby MD Active HYDRALAZINE HCL 25 MG TABS 1 tablet by mouth tid for hypertension HYDRALAZINE HCL 06766486529 No Longer Active Robbie Busby MD Active VIIBRYD 40 MG TABS take 1 tab po qday for depression. VILAZODONE HCL 26587006836 No Longer Active Robbie Busby MD Active TERBINAFINE HCL 250 MG TABS 1 tab po qday for foot infection 2014 TERBINAFINE HCL 03172370513 No Longer Active Robbie Busby MD Active GABAPENTIN 300 MG CAPS 1 po q hs for nerve pain GABAPENTIN 54857229625 Active Erin Garsia APRN Active FLONASE 50 MCG/ACT SUSP 1 spray each nostril twice daily for allergies and runny nose FLUTICASONE PROPIONATE 00904273740 Active Robbie Busby MD Active CHERATUSSIN AC 100-10 MG/5ML ORAL SOLN 7.5 mL PO q 4-6 hrs PRN cough GUAIFENESIN-CODEINE 45437017424 No Longer Active Robbie Busby MD Active AZITHROMYCIN 250 MG ORAL TABS 2 tablets PO today---then, 1 tablet PO daily x 4 more days (and 1 optional refill) AZITHROMYCIN 56488562899 No Longer Active Robbie Busby MD Active CLONIDINE HCL 0.2 MG ORAL TABS 1 TAB BY MOUTH EVERY 8 HOURS CLONIDINE HCL 25503766357 Active Robbie Busby MD Active HYDROCHLOROTHIAZIDE TABS Take one by mouth daily HYDROCHLOROTHIAZIDE TABS 85170308279 Active Alex ALVAREZ Active NORVASC 10 MG TAB 1 tablet by mouth daily AMLODIPINE BESYLATE 67996467547 No Longer Active Alex ALVAREZ Active IMDUR 60 MG TAB CR take 1 tab po qday for blood pressure ISOSORBIDE MONONITRATE Active Robbie Busby MD Active ISOSORBIDE DINITRATE 30 MG TABS Take one by mouth daily ISOSORBIDE DINITRATE 59894616848 No Longer Active Robbie Busby MD Active VIIBRYD 40 MG TABS 1 TA B PO DAILY VILAZODONE HCL 31385014454 Active Robbie Busby MD Active LORATADINE 10 MG TABS 1 tablet by mouth daily for congestion and allergies. LORATADINE 89433253741 Active Robbie Busby MD Active ZITHROMAX 250 MG TAB 2 po today, then 1 po q days 2-5 AZITHROMYCIN 57270264451 No Longer Active Robbie Busby MD Active HYDROCODONE-ACETAMINOPHEN 5-325 MG TABS 1 tab by mouth BID prn back pain 2013 HYDROCODONE-ACETAMINOPHEN 18467974036 Active Robbie Busby MD Active [id number]-1 0.3 MG/24HR PTWK apply 2 patches q week for HTN CLONIDINE HCL 42062697639 Active Robbie Busby MD Active NITROSTAT 0.4 MG SUBL PRN NITROGLYCERIN 22796313485 Active Robbie Busby MD Active DOXAZOSIN MESYLATE 4 MG TABS Take one by mouth daily DOXAZOSIN MESYLATE 60688549135 Active Robbie Busby MD Active TOPROL XL 200 MG [id number] Take one by mouth daily METOPROLOL SUCCINATE 09453959649 Active Robbie Busby MD Active VENLAFAXINE HCL ER 150 MG [id number] Take one by mouth daily VENLAFAXINE HCL 16379163762 Active Robbie Busby MD Active LIPITOR 40 MG TABS Take one by mouth daily ATORVASTATIN CALCIUM 77441638959 Active Robbie Busby MD Active ISOSORBIDE DINITRATE 30 MG TABS Take one by mouth daily ISOSORBIDE DINITRATE 30 MG TABS 319524 ISOSORBIDE DINITRATE Inactive NORVASC 10 MG TAB 1 tablet by mouth daily NORVASC 10 MG TAB 660950 AMLODIPINE BESYLATE Inactive AZITHROMYCIN 250 MG ORAL TABS 2 tablets PO today---then, 1 tablet PO daily x 4 more days (and 1 optional refill) AZITHROMYCIN 250 MG ORAL TABS 6105583 AZITHROMYCIN Inactive CHERATUSSIN AC 100-10 MG/5ML ORAL SOLN 7.5 mL PO q 4-6 hrs PRN cough CHERATUSSIN AC 100-10 MG/5ML ORAL SOLN 334405 GUAIFENESIN- CODEINE Inactive VIIBRYD 40 MG TABS take 1 tab po qday for depression. VIIBRYD 40 MG TABS VILAZODONE HCL Inactive HYDRALAZINE HCL 25 MG TABS 1 tablet by mouth tid for hypertension HYDRALAZINE HCL 25 MG TABS 465143 HYDRALAZINE HCL Inactive SPIRONOLACTONE 50 MG TABS 1 tablet by mouth twice a day SPIRONOLACTONE 50 MG TABS 894269 SPIRONOLACTONE Inactive FENOFIBRATE 145 MG TABS Take one by mouth daily FENOFIBRATE 145 MG TABS 837579 FENOFIBRATE Inactive PROTONIX 40 MG SOLR 1 po qday for acid reflux PROTONIX 40 MG SOLR PANTOPRAZOLE SODIUM Inactive ZITHROMAX 250 MG TAB 2 po today, then 1 po q days 2-5 ZITHROMAX 250 MG TAB 3452295 AZITHROMYCIN Inactive TERBINAFINE HCL 250 MG TABS 1 tab po qday for foot infection 2014 TERBINAFINE HCL 250 MG TABS 503741 TERBINAFINE HCL Inactive KEFLEX 500 MG CAP 1 po TID x 10 days KEFLEX 500 MG CAP 567728 CEPHALEXIN Inactive Vital Signs Date Name Value [...] PANEL - Chemistry cholesterol, serum 211 mg/dL 208-207 8004/08/31 triglyceride, serum, fasting 429 mg/dL 30-200 HDL cholesterol, serum 25 mg/dL 32-96 LDL cholesterol, serum 100 mg/dL 0-130 aspartate aminotransferase (SGOT), serum 19 U/L 15-37 alanine aminotransferase (SGPT), serum 32 U/L 12-78 bilirubin, serum, total 0.70 mg/dL 0.00-1.00 Lab Report: Prostatic Specific Ag - Chemistry prostate specific antigen 1.31 ng/mL 0.00-4.00 Encounters Code Encounter Date Provider Facility CPT-12138 Level 4 Est. Patient 11:25:03 COUNSELING DIRECTOR Robbie Busby MD [facility] CPT-88748 Level 4 Est. Patient 14:50:10 CDT Robbie Busby MD [facility] CPT-27761 Level 4 Est. Patient 23:30:43 CDT Robbie Busby MD [facility] CPT-62856 Level 4 Est. Patient 10:30:43 CDT Robbie Busby MD [facility] CPT-37799 Level 3 Est. Patient 17:08:12 CDT Alex ALVAREZ [facility] CPT-20595 Level 4 Est. Patient 17:51:38 CDT Robbie Busby MD [facility] CPT-07854 Level 4 Est. Patient 14:00:21 CDT Robbie Busby MD [facility] CPT-55977 Level 4 Est. Patient 12:46:48 CDT Robbie Busby MD [facility] CPT-85458 Level 4 Est. Patient 13:34:33 CDT Robbie Busby MD [facility] CPT-03064 Level 4 Est. Patient 16:58:28 CDT Robbie Busby MD [facility] CPT-59484 Level 3 Est. Patient 19:36:53 CDT Alex ALVAREZ [facility] CPT-97479 Level 3 Est. Patient 12:58:15 CDT Robbie Busby MD [facility] Procedures Code Procedure Name Date Entry Date Standard Description CPT-G0008 Administration of Influenza Virus Vaccine 16:09:59 CDT CPT-16972 Fluzone Quadrivalent Intramuscular Suspension 0.5 ML 16: 09:59 CDT CPT-98335 Spec Collection and Handling Fee 15:05:50 CDT
--- OUTSIDE RECORDS SUMMARY | 2018-04-18 12:35 | XMS REPORT | Clinical Summary ---
Author Author Admin, [facility] Organization [facility] Address Unknown Phone Unavailable Allergies, [...] Active Erin Grasia APRN Acute sinusitis, unspecified Acute confusion 293.0 [...] 2 weeks for low testosterone TESTOSTERONE CYPIONATE 64407685776 Active Zulema Blank LPN Active CYCLOBENZAPRINE HCL 10 MG ORAL TABS 1 po TID PRN muscle spasm/pain for 10 days CYCLOBENZAPRINE HCL 49802304822 Active JONATHAN Moncada Active GUAIFENESIN 600 MG [id number] 1 tab po q am GUAIFENESIN 16507581873 Active Jillina Frazelariana GONZALEZN Active FLUTICASONE PROPIONATE 50 MCG/ACT SUSP 2 sprays per nostril bid for 1 week, then 1 spray bid FLUTICASONE PROPIONATE 08992295719 Active Jillina Anne GONZALEZN Active HYDRALAZINE HCL 25 MG ORAL TABS Take 1 tab BID. HYDRALAZINE HCL 56868367419 Active Jillina Anne GONZALEZN Active VITAMIN D3 79511 UNIT ORAL TABS 2 po weekly CHOLECALCIFEROL 18123311826 Active Robbie Busby MD Active OXYCODONE HCL ER 10 MG ORAL T12A 1 tab po 3 times qd. OXYCODONE HCL 49487169121 Active Robbie Busby MD Active NITROSTAT 0.4 MG SUBL PRN NITROGLYCERIN 03161908817 No Longer Active Robbie Busby MD Active LORATADINE 10 MG TABS 1 tablet by mouth daily for congestion and allergies. LORATADINE 38610622230 No Longer Active Robbie Busby MD Active FLONASE 50 MCG/ACT SUSP 1 spray each nostril twice daily for allergies and runny nose FLUTICASONE PROPIONATE 76171927833 No Longer Active Robbie Busby MD Active FIORICET 50-300-40 MG ORAL CAPS take 1 tab po qday prn migraines. [id number] 00809268473 No Longer Active Robbie Busby MD Active VITAMIN D3 41215 UNIT CAPS 2 CAPS PO WEEKLY CHOLECALCIFEROL 23608612560 No Longer Active Robbie Busby MD Active CYCLOBENZAPRINE HCL 10 MG TABS 1 tablet by mouth three times daily as needed for muscle spasm/pain for 10 days CYCLOBENZAPRINE HCL 57998481784 No Longer Active Robbie Busby MD Active PREDNISONE 20 MG TAB take 3 tabs daily for 3 days, 2 tabs daily for 3 days, 1 tab daily for 3 days, 1/2 tab daily for 4 days PREDNISONE 50447640225 No Longer Active Erin Garsia APRN Active CLONIDINE HCL 0.2 MG ORAL TABS 1 TAB BY MOUTH EVERY 8 HOURS 12/29 CLONIDINE HCL 53500101654 No Longer Active Erin Garsia APRN Active MECLIZINE HCL 25 MG TAB one 4 times a day as needed for dizziness MECLIZINE HCL 57191027587 No Longer Active Erin Garsia APRN Active SPIRONOLACTONE 25 MG TAB 4 tablets by mouth daily SPIRONOLACTONE 56822623421 No Longer Active Erin Garsia APRN Active LEVAQUIN 500 MG TAB 1 tablet by mouth daily for 7 days LEVOFLOXACIN 14225465386 No Longer Active Erin Garsia APRN Active BACTRIM DS 800-160 MG TAB 1 tab by mouth twice daily TRIMETHOPRIM-SULFAMETHOXAZOLE 92037326157 No Longer Active Robbie Busby MD Active HYDRALAZINE HCL 50 MG ORAL TABS TWO BY MOUTH THREE TIMES DAILY HYDRALAZINE HCL 81197433489 No Longer Active Andrellina Anne GONZALEZN Active HYDROCODONE-ACETAMINOPHEN 5-325 MG TABS 1 tab by mouth BID prn back pain 2013 HYDROCODONE-ACETAMINOPHEN 61106479093 No Longer Active Jillina Frazell [employer] Active HYDROCHLOROTHIAZIDE TABS Take one by mouth daily HYDROCHLOROTHIAZIDE TABS 13116773807 No Longer Active Jillina Frazell [employer]ALLATION MECH[employer]IC Active LAMISIL 125 MG ORAL PACK 1 TAB PO DAILY TERBINAFINE HCL 54109763848 No Longer Active Jillina Frazell [employer]ALLATION MECH[employer]IC Active TRILEPTAL 150 MG ORAL TABS 1 TAB PO Q HS OXCARBAZEPINE 77999177491 No Longer Active Jillina Frazell [employer]ALLATION MECH[employer]IC Active BETADINE 10 % EXT SOLN wash with solution to treat follicultis POVIDONE-IODINE 67021827847 No Longer Active Jillina Frazell [employer]ATION MECH[employer]IC Active NYSTATIN 934422 UNIT/ML M/T SUSP 5mL po QID x 10 days NYSTATIN 55352031670 No Longer Active Erin Garsia APRN Active PREDNISONE 20 MG TAB 1 tablet twice daily for 2 days, then 1 tablet once daily for 2 days PREDNISONE 07339080634 No Longer Active Robbie Busby MD Active CEFDINIR 300 MG ORAL CAPS Take 1 cap po bid x 10 days CEFDINIR 15120907231 No Longer Active Robbie Busby MD Active AMLODIPINE BESYLATE 10 MG TABS 1 tablet by mouth daily AMLODIPINE BESYLATE 13121982560 Active Robbie Busby MD Active CARVEDILOL 25 MG TABS 1 & 1/2 TAB po BID CARVEDILOL 22450825089 Active Robbie Busby MD Active NEXIUM 40 MG CPDR 1 cap by mouth daily ESOMEPRAZOLE MAGNESIUM 46171394093 Active Robbie Busby MD Active PROTONIX 40 MG SOLR 1 po qday for acid reflux PANTOPRAZOLE SODIUM 25789196561 No Longer Active Gali Raida Active KEFLEX 500 MG CAP 1 po TID x 10 days CEPHALEXIN 54327852142 No Longer Active Robbie Busby MD Active TOPIRAMATE 50 MG ORAL TABS take 1 tab po BID for migraines. TOPIRAMATE 00525825422 Active Robbie Busby MD Active TEMAZEPAM 15 MG ORAL CAPS 1 TAB PO Q HS TEMAZEPAM 62078297211 Active Robbie Busby MD Active ALPRAZOLAM 2 MG ORAL TABS 1 TAB PO BID ALPRAZOLAM 41480565832 Active Robbie Busby MD Active FENOFIBRATE 145 MG TABS Take one by mouth daily FENOFIBRATE 96107198232 No Longer Active Robbie Busby MD Active SPIRONOLACTONE 50 MG TABS 1 tablet by mouth twice a day SPIRONOLACTONE 80024764481 No Longer Active Robbie Busby MD Active HYDRALAZINE HCL 25 MG TABS 1 tablet by mouth tid for hypertension HYDRALAZINE HCL 98862506583 No Longer Active Robbie Busby MD Active VIIBRYD 40 MG TABS take 1 tab po qday for depression. VILAZODONE HCL 92407338885 No Longer Active Robbie Busby MD Active TERBINAFINE HCL 250 MG TABS 1 tab po qday for foot infection 2014 TERBINAFINE HCL 04075975544 No Longer Active Robbie Busby MD Active GABAPENTIN 300 MG CAPS 1 po q hs for nerve pain GABAPENTIN 22764323865 Active Robbie Busby MD Active CHERATUSSIN AC 100-10 MG/5ML ORAL SOLN 7.5 mL PO q 4-6 hrs PRN cough GUAIFENESIN-CODEINE 34746849960 No Longer Active Robbie Busby MD Active AZITHROMYCIN 250 MG ORAL TABS 2 tablets PO today---then, 1 tablet PO daily x 4 more days (and 1 optional refill) AZITHROMYCIN 04269508606 No Longer Active Robbie Busby MD Active NORVASC 10 MG TAB 1 tablet by mouth daily AMLODIPINE BESYLATE 91586477687 No Longer Active Alex ALVAREZ Active IMDUR 60 MG TAB CR take 1 tab po qday for blood pressure ISOSORBIDE MONONITRATE Active Robbie Busby MD Active ISOSORBIDE DINITRATE 30 MG TABS Take one by mouth daily ISOSORBIDE DINITRATE 85161733203 No Longer Active Robbie Bsuby MD Active VIIBRYD 40 MG TABS 1 TA B PO DAILY VILAZODONE HCL 57415691609 Active Robbie Busby MD Active ZITHROMAX 250 MG TAB 2 po today, then 1 po q days 2-5 AZITHROMYCIN 55651830613 No Longer Active Robbie Busby MD Active HPFIMOLS-HVP-2 0.3 MG/24HR PTWK apply 2 patches q week for HTN CLONIDINE HCL 50314633352 Active Robbie Busby MD Active DOXAZOSIN MESYLATE 4 MG TABS Take one by mouth daily DOXAZOSIN MESYLATE 65627983897 Active Robbie Busby MD Active TOPROL XL 200 MG [id number] Take one by mouth daily METOPROLOL SUCCINATE 81696351771 Active Robbie Busby MD Active VENLAFAXINE HCL ER 150 MG [id number] Take one by mouth daily VENLAFAXINE HCL 60433663935 Active Robbie Busby MD Active LIPITOR 40 MG TABS Take one by mouth daily ATORVASTATIN CALCIUM 38327504747 Active Robbie Busby MD Active ISOSORBIDE DINITRATE 30 MG TABS Take one by mouth daily ISOSORBIDE DINITRATE 30 MG TABS 730852 ISOSORBIDE DINITRATE Inactive NORVASC 10 MG TAB 1 tablet by mouth daily NORVASC 10 MG TAB 287177 AMLODIPINE BESYLATE Inactive AZITHROMYCIN 250 MG ORAL TABS 2 tablets PO today---then, 1 tablet PO daily x 4 more days (and 1 optional refill) AZITHROMYCIN 250 MG ORAL TABS 7791967 AZITHROMYCIN Inactive CHERATUSSIN AC 100-10 MG/5ML ORAL SOLN 7.5 mL PO q 4-6 hrs PRN cough CHERATUSSIN AC 100-10 MG/5ML ORAL SOLN 709238 GUAIFENESIN- CODEINE Inactive VIIBRYD 40 MG TABS take 1 tab po qday for depression. VIIBRYD 40 MG TABS VILAZODONE HCL Inactive HYDRALAZINE HCL 25 MG TABS 1 tablet by mouth tid for hypertension HYDRALAZINE HCL 25 MG TABS 939435 HYDRALAZINE HCL Inactive SPIRONOLACTONE 50 MG TABS 1 tablet by mouth twice a day SPIRONOLACTONE 50 MG TABS 443560 SPIRONOLACTONE Inactive FENOFIBRATE 145 MG TABS Take one by mouth daily FENOFIBRATE 145 MG TABS 092026 FENOFIBRATE Inactive PROTONIX 40 MG SOLR 1 po qday for acid reflux PROTONIX 40 MG SOLR 540846 PANTOPRAZOLE SODIUM Inactive CEFDINIR 300 MG ORAL CAPS Take 1 cap po bid x 10 days CEFDINIR 300 MG ORAL CAPS 371087 CEFDINIR Inactive PREDNISONE 20 MG TAB 1 tablet twice daily for 2 days, then 1 tablet once daily for 2 days PREDNISONE 20 MG TAB 372398 PREDNISONE Inactive NYSTATIN 642219 UNIT/ML M/T SUSP 5mL po QID x 10 days NYSTATIN 948454 UNIT/ML M/T SUSP 512870 NYSTATIN Inactive BETADINE 10 % EXT SOLN wash with solution to treat follicultis BETADINE 10 % EXT SOLN 0594240 POVIDONE-IODINE Inactive TRILEPTAL 150 MG ORAL TABS 1 TAB PO Q HS TRILEPTAL 150 MG ORAL TABS 872625 OXCARBAZEPINE Inactive LAMISIL 125 MG ORAL PACK 1 TAB PO DAILY LAMISIL 125 MG ORAL PACK TERBINAFINE HCL Inactive HYDROCHLOROTHIAZIDE TABS Take one by mouth daily HYDROCHLOROTHIAZIDE TABS HYDROCHLOROTHIAZIDE TABS Inactive HYDROCODONE-ACETAMINOPHEN 5-325 MG TABS 1 tab by mouth BID prn back pain 2013 HYDROCODONE-ACETAMINOPHEN 5-325 MG TABS 327839 HYDROCODONE -ACETAMINOPHEN Inactive HYDRALAZINE HCL 50 MG ORAL TABS TWO BY MOUTH THREE TIMES DAILY HYDRALAZINE HCL 50 MG ORAL TABS 813706 HYDRALAZINE HCL Inactive LEVAQUIN 500 MG TAB 1 tablet by mouth daily for 7 days LEVAQUIN 500 MG TAB 964842 LEVOFLOXACIN Inactive SPIRONOLACTONE 25 MG TAB 4 tablets by mouth daily SPIRONOLACTONE 25 MG TAB 224374 SPIRONOLACTONE Inactive MECLIZINE HCL 25 MG TAB one 4 times a day as needed for dizziness MECLIZINE HCL 25 MG TAB 779677 MECLIZINE HCL Inactive CLONIDINE HCL 0.2 MG ORAL TABS 1 TAB BY MOUTH EVERY 8 HOURS 12/29 CLONIDINE HCL 0.2 MG ORAL TABS 055015 CLONIDINE HCL Inactive CYCLOBENZAPRINE HCL 10 MG TABS 1 tablet by mouth three times daily as needed for muscle spasm/pain for 10 days CYCLOBENZAPRINE HCL 10 MG TABS 077174 CYCLOBENZAPRINE HCL Inactive VITAMIN D3 19531 UNIT CAPS 2 CAPS PO WEEKLY VITAMIN D3 92868 UNIT CAPS CHOLECALCIFEROL Inactive FIORICET 50-300-40 MG ORAL CAPS take 1 tab po qday prn migraines. FIORICET 50-300-40 MG ORAL CAPS 306745 [id number] Inactive FLONASE 50 MCG/ACT SUSP 1 spray each nostril twice daily for allergies and runny nose FLONASE 50 MCG/ACT SUSP 7629989 FLUTICASONE PROPIONATE Inactive LORATADINE 10 MG TABS 1 tablet by mouth daily for congestion and allergies. LORATADINE 10 MG TABS 713269 LORATADINE Inactive NITROSTAT 0.4 MG SUBL PRN NITROSTAT 0.4 MG SUBL 531553 NITROGLYCERIN Inactive ZITHROMAX 250 MG TAB 2 po today, then 1 po q days 2-5 ZITHROMAX 250 MG TAB 2322236 AZITHROMYCIN Inactive TERBINAFINE HCL 250 MG TABS 1 tab po qday for foot infection 2014 TERBINAFINE HCL 250 MG TABS 191250 TERBINAFINE HCL Inactive KEFLEX 500 MG CAP 1 po TID x 10 days KEFLEX 500 MG CAP 030553 CEPHALEXIN Inactive BACTRIM DS 800-160 MG TAB 1 tab by mouth twice daily BACTRIM DS 800-160 MG TAB 087183 TRIMETHOPRIM-SULFAMETHOXAZOLE Inactive PREDNISONE 20 MG TAB take 3 tabs daily for 3 days, 2 tabs daily for 3 days, 1 tab daily for 3 days, 1/2 tab daily for 4 days PREDNISONE 20 MG TAB 053617 PREDNISONE Inactive Advance Directives Directive Description Start [...] AUTO - Chemistry sodium, serum 142 mmol/L 446-060 7165/07/17 carbon dioxide, venous blood 28.2 mmol/L 21.0-32.0 [...] % 11.0-15.0 platelet count 185 THOUSAND/UL 10*3/mm3 524-118 8529/04/14 mean platelet volume 10.9 fL 7.5-12.5 Lab Report: LIPID PANEL, TSH/899, T4, FREE/866 - Chemistry cholesterol, serum 220 mg/dL 600-767 4080/04/14 HDL cholesterol, serum 30 mg/dL > OR=40 triglyceride, serum, fasting 466 mg/dL <150 LDL cholesterol, serum SEE NOTE mg/dL (calc) mg/dL <130 cholesterol/HDL ratio, serum 7.3 (calc) < OR=5.0 Lab Report: Prostatic Specific Ag - Chemistry prostate specific antigen 1.80 ng/mL 0.00-4.00 Lab Report: VITAMIN D, 25-HYDROXY/91784 - Chemistry vitamin D 25-hydroxy, serum 25 ng/mL 30-100 Office Visit: Confusion, dizziness after fall - Basic LDL target level 130 mg/dL Office Visit: Confusion, dizziness after fall - Chemistry HDL cholesterol, serum, target level 40 mg/dL triglyceride, target level 150 mg/dL cholesterol, target level 200 mg/dL Encounters Code Encounter Date Provider Facility CPT-16725 Level 4 Est. Patient 15:18:19 CDT Robbie Busby MD [facility] CPT-12127 Level 3 Est. Patient 09:00:37 CDT Rober Rodríguez APRN [facility] CPT-54711 Level 3 Est. Patient 16:07:10 CDT Robbie Busby MD [facility] CPT-12806 Level 4 Est. Patient 11:56:16 CDT Erin Garsia [facility] CPT-01844 Level 3 Est. Patient 17:48:02 CDT Robbie Busby MD [facility] CPT-90194 Level 4 Est. 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 Patient 09:16:37 CDT Robbie Busby MD [facility] CPT-70420 Level 3 Est. Patient 19:38:43 CDT Robbie Busby MD [facility]-43652 Level 3 Est. Patient 11:53:38 CDT Robbie Busby MD [facility] CPT-14466 Level 4 Est. Patient 12:52:22 CDT Rober Rodríguez [facility] CPT-72993 Level 4 Est. Patient 22:55:17 CDT Robbie Busby MD [facility]-31610 Level 3 Est. Patient 12:38:24 CDT Desmond Diaz DO [facility] CPT-96990 Level 4 Est. Patient 11:25:03 CONSTRUCTION WORKER Robbie Busby MD [facility] CPT-44385 Level 4 Est. Patient 14:50:10 CDT Robbie Busby MD [facility] CPT-89556 Level 4 Est. Patient 23:30:43 CDT Robbie Busby MD [facility] CPT-06863 Level 4 Est. Patient 10:30:43 CDT Robbie Busby MD [facility] CPT-55542 Level 3 Est. Patient 17:08:12 CDT Alex ALVAREZ [facility] CPT-70238 Level 4 Est. Patient 17:51:38 CDT Robbie Busby MD [facility] CPT-47380 Level 4 Est. Patient 14:00:21 CDT Robbie Busby MD [facility] CPT-39506 Level 4 Est. Patient 12:46:48 CDT Robbie Busby MD [facility] CPT-44820 Level 4 Est. Patient 13:34:33 CDT Robbie Busby MD [facility] CPT-28940 Level 4 Est. Patient 16:58:28 CDT Robbie Busby MD [facility] CPT-57393 Level 3 Est. Patient 19:36:53 CDT Alex ALVAREZ [facility] CPT-30413 Level 3 Est. Patient 12:58:15 CDT Robbie Busby MD [facility] Procedures Code Procedure Name Date Entry Date Standard Description CPT-J1071 Depo Testosterone 200mg 09:03:53 CDT CPT-59004 Abx/Therapy Injection 09:03:53 CDT CPT-G0439 [facility] Annual Wellness Exam 16:47:44 CDT CPT-J1071 Depo Testosterone 200mg 09:06:28 CDT CPT-85569 Abx/Therapy Injection 09:06:28 CDT CPT-J1071 Depo Testosterone 200mg 08:30:01 CDT CPT-52803 Abx/Therapy Injection 08:30:01 CDT CPT-J1071 Depo Testosterone 200mg 08:24:00 CDT CPT-87014 Abx/Therapy Injection 08:24:00 CDT CPT-69150 Venipuncture Draw Fee 14:39:06 CDT CPT-75129 Ribs unilateral 2V - XRAY USE ONLY 12:10:11 CDT CPT-98189 First Vx - Ix admin for Medicare patients 16:32:53 CDT CPT-33227 Boostrix Intramuscular Suspension 5-2.5-18.5 16:32:53 CDT CPT-21684 TB Skin Test 11:42:28 CDT CPT-55735 Tdap 7yrs or > 11:42:28 CDT CPT-J0696 Rocephin 1000 mg (Ceftriaxone) 17:43:43 CONSTRUCTION WORKER CPT-J1040 Depo Medrol 80 mg (Methyl Prednisolone Acetate) 17:43: 43 CONSTRUCTION WORKER CPT-J1100 Decadron 8mg (Dexamethasone) 17:43:42 CONSTRUCTION WORKER CPT-86223 Abx/Therapy Injection 17:43:42 CONSTRUCTION WORKER CPT-91981 Abx/Therapy Injection 17:43:42 CONSTRUCTION WORKER CPT-J1040 Depo Medrol 80 mg (Methyl Prednisolone Acetate) 09:43: 34 CONSTRUCTION WORKER CPT-J1100 Decadron 8mg (Dexamethasone) 09:43:34 CONSTRUCTION WORKER CPT-J0696 Rocephin 1gm Inj Solr 09:43:34 CONSTRUCTION WORKER CPT-71504 Wound Culture - LAB USE ONLY 14:00:21 CDT CPT-I/D I/D Abscess 09:16:37 CDT CPT-73617 Venipuncture Draw Fee 15:20:23 CDT CPT-32987 Microalbumin - LAB USE ONLY 16:02:19 CDT CPT-78760 CBC - LAB USE ONLY 16:02:19 CDT CPT-82203 Venipuncture Draw Fee 16:02:19 CDT CPT-G0438 Initial Annual Wellness Exam 08:10:28 CDT CPT-21595 Venipuncture Draw Fee 13:07:17 CDT CPT-G0008 Administration of Influenza Virus Vaccine 16:09:59 CDT CPT-31689 Fluzone Quadrivalent Intramuscular Suspension 0.5 ML 16: 09:59 CDT CPT-76971 Spec Collection and Handling Fee 15:05:50 CDT
--- OUTSIDE RECORDS SUMMARY | 2018-04-18 12:36 | XMS REPORT | Clinical Summary ---
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 Desmond Diaz DO Other malignant secondary hypertension Tachycardia 785.0 Active Rober Rodríguez MIRROR INSPECTOR Tachycardia, unspecified Insect bite, infected 919.5 Resolved Desmond Diaz DO Insect bite, nonvenomous, of other, multiple, and unspecified sites, infected Abscess, skin 682.9 Resolved Desmond Diaz DO Cellulitis and abscess of unspecified sites URI 465.9 Resolved Desmond Diaz DO Acute upper respiratory infections of unspecified site Hypertension 401.9 Active Rober Rodríguez MIRROR INSPECTOR Unspecified essential hypertension Sinusitis - acute 461.9 [...] Hypogonadism, low testosterone 257.2 Active Erin Mai MIRROR INSPECTOR Other testicular hypofunction Low back pain, chronic [...] 36.0-36.9, adult Sinusitis ICD-461.9 Inactive Emily Atwood LEGAL AID 2017 Low back pain, acute ICD-724.2 Inactive Emily Atwood LEGAL AID Low back pain, chronic ICD-724.2 Inactive Emily Atwood LEGAL AID Bronchitis, acute ICD-466.0 Inactive Emily Atwood LEGAL AID Onychomycosis, toenails ICD-110.1 Inactive Emily Atwood LEGAL AID Dizziness ICD-780.4 Inactive Emily Atwood LEGAL AID 2017 Folliculitis ICD-704.8 Inactive Emily Atwood LEGAL AID Pharyngitis-Acute ICD-462 Inactive Emily Atwood LEGAL AID Fatigue ICD-780.79 Inactive Emily Atwood LEGAL AID 09/20 Hypertension, secondary, malignant ICD-405.09 Inactive Emily Atwood LEGAL AID Insect bite, infected ICD-919.5 Inactive Emily Atwood LEGAL AID Abscess, skin ICD-682.9 Inactive Emily Atwood LEGAL AID URI ICD-465.9 Inactive Emily Atwood LEGAL AID Sinusitis - acute ICD-461.9 Inactive Emily Atwood LEGAL AID Acute confusion ICD-293.0 Inactive Emily Atwood LEGAL AID Headache ICD-784.0 Inactive Emily Atwood LEGAL AID 09/20 Back pain ICD-724.5 Inactive Emily Atwood LEGAL AID 2017 Rib pain, right sided ICD-786.50 Inactive Emily Atwood LEGAL AID Myalgias ICD-729.1 Inactive Emily Atwood LEGAL AID 09/20 URI ICD-465.9 Inactive Emily Atwood LEGAL AID Bronchitis-Acute ICD-466.0 Inactive Desmond Diaz DO Medication List Medication Instructions Start Date Stop Date Generic Name NDC Status Provider Patient Instruction MONTELUKAST SODIUM 10 MG ORAL TABLET 1 tab po daily for allergies MONTELUKAST SODIUM 46509089465 Active JONATHAN Moncada Active IMDUR 60 MG ORAL TABLET EXTENDED RELEASE 24 HOUR 1 po q day ISOSORBIDE MONONITRATE 53771657129 Active Emma Hernandez Active METOPROLOL SUCCINATE ER 200 MG ORAL TABLET EXTENDED RELEASE 24 HOUR take 1 tab po qday for high blood pressure and rapid pulse METOPROLOL SUCCINATE 11670558208 Active Robbie Busby MD Active RTIRWQZJ-[id number]-2 0.3 MG/24HR TRANSDERMAL PATCH WEEKLY apply 2 patches q week for HTN CLONIDINE HCL 78932038041 No Longer Active Robbie Busby MD Active IMDUR 60 MG ORAL TABLET EXTENDED RELEASE 24 HOUR take 1 tab po qday for blood pressure ISOSORBIDE MONONITRATE 77736011244 No Longer Active Robbie Busby MD Active TEMAZEPAM 15 MG ORAL CAPSULE 1 TAB PO Q HS TEMAZEPAM 23489654035 No Longer Active Robbie Busby MD Active TOPIRAMATE 50 MG ORAL TABLET 1 po BID for migraines TOPIRAMATE 76341643498 No Longer Active Robbie Busby MD Active CYCLOBENZAPRINE HCL 10 MG ORAL TABLET 1 tablet by mouth three times daily as needed for muscle spasm/pain CYCLOBENZAPRINE HCL 43165479135 No Longer Active Robbie Busby MD Active TOPROL XL 200 MG ORAL TABLET EXTENDED RELEASE 24 HOUR Take one by mouth daily METOPROLOL SUCCINATE 43060388561 No Longer Active Robbie Busby MD Active METFORMIN HCL 500 MG ORAL TABLET 1 tablet by mouth daily for diabetes type 2 METFORMIN HCL 11012607302 Active Robbie Busby MD Active SINGULAIR 10 MG ORAL TABLET 1 po qday for allergies. MONTELUKAST SODIUM 38499551812 No Longer Active Robbie Busby MD Active PREDNISONE 20 MG ORAL TABLET two tabs by mouth today, then one tab by mouth days two and three PREDNISONE 69104913618 No Longer Active Robbie Busby MD Active AZITHROMYCIN 250 MG ORAL TABLET 2 po qd x 1 day, then 1 po qd x 4 days 09/20 AZITHROMYCIN 21577526500 No Longer Active Desmond Diaz DO Active TOPIRAMATE 50 MG ORAL TABLET take 1 tab po BID for migraines. TOPIRAMATE 96630143260 No Longer Active Desmond Diaz DO Active CYCLOBENZAPRINE HCL 10 MG ORAL TABLET 1 po TID PRN muscle spasm/pain for 10 days CYCLOBENZAPRINE HCL 53264483416 No Longer Active Desmond Diaz DO Active GUAIFENESIN ER 600 MG ORAL TABLET EXTENDED RELEASE 12 HOUR 1 tab po q am 2016 GUAIFENESIN 28428452762 No Longer Active Robbie Busby MD Active DIVALPROEX SODIUM ER 500 MG ORAL TABLET EXTENDED RELEASE 24 HOUR Once daily DIVALPROEX SODIUM 89060750530 Active Robbie Busby MD Active DEPO-TESTOSTERONE 200 MG/ML INTRAMUSCULAR SOLUTION 1 IM Injections every 2 weeks for low testosterone TESTOSTERONE CYPIONATE 93407153228 Active Zulema Blank LPN Active FLUTICASONE PROPIONATE 50 MCG/ACT NASAL SUSPENSION 2 sprays per nostril bid for 1 week, then 1 spray bid FLUTICASONE PROPIONATE 04466236155 Active Rober Rodríguez APRN Active HYDRALAZINE HCL 25 MG ORAL TABLET Take 1 tab BID. HYDRALAZINE HCL 56127914344 Active Rober Rodríguez MIRROR INSPECTOR Active VITAMIN D3 43851 UNIT ORAL TABLET 2 po weekly CHOLECALCIFEROL 40185817977 Active Robbie Busby MD Active OXYCODONE HCL ER 10 MG ORAL TABLET ER 12 HOUR ABUSE-DETERRENT 1 tab po 3 times qd. OXYCODONE HCL 96158457685 Active Robbie Busby MD Active NITROSTAT 0.4 MG SUBLINGUAL TABLET SUBLINGUAL PRN NITROGLYCERIN 79158658203 No Longer Active Robbie Busby MD Active LORATADINE 10 MG ORAL TABLET 1 tablet by mouth daily for congestion and allergies. LORATADINE 26073568582 No Longer Active Robbie Busby MD Active FLONASE 50 MCG/ACT NASAL SUSPENSION 1 spray each nostril twice daily for allergies and runny nose FLUTICASONE PROPIONATE 56223292211 No Longer Active Robbie Busby MD Active FIORICET 50-300-40 MG ORAL CAPSULE take 1 tab po qday prn migraines. [id number] 85272225001 No Longer Active Robbie Busby MD Active VITAMIN D3 13020 UNIT ORAL CAPSULE 2 CAPS PO WEEKLY CHOLECALCIFEROL 61862175073 No Longer Active Robbie Busby MD Active CYCLOBENZAPRINE HCL 10 MG ORAL TABLET 1 tablet by mouth three times daily as needed for muscle spasm/pain for 10 days CYCLOBENZAPRINE HCL 69474905416 No Longer Active Robbie Busby MD Active PREDNISONE 20 MG ORAL TABLET take 3 tabs daily for 3 days, 2 tabs daily for 3 days, 1 tab daily for 3 days, 1/2 tab daily for 4 days PREDNISONE 49994642509 No Longer Active Erin Arell MIRROR INSPECTOR Active CLONIDINE HCL 0.2 MG ORAL TABLET 1 TAB BY MOUTH EVERY 8 HOURS CLONIDINE HCL 00686241003 No Longer Active Erin Arell MIRROR INSPECTOR Active MECLIZINE HCL 25 MG ORAL TABLET one 4 times a day as needed for dizziness MECLIZINE HCL 59601183225 No Longer Active Erin Arell MIRROR INSPECTOR Active SPIRONOLACTONE 25 MG ORAL TABLET 4 tablets by mouth daily SPIRONOLACTONE 95538970320 No Longer Active Erin Arell MIRROR INSPECTOR Active LEVAQUIN 500 MG ORAL TABLET 1 tablet by mouth daily for 7 days LEVOFLOXACIN 78080921755 No Longer Active Erin Arell MIRROR INSPECTOR Active BACTRIM DS 800-160 MG ORAL TABLET 1 tab by mouth twice daily 2015 TRIMETHOPRIM-SULFAMETHOXAZOLE 68375267560 No Longer Active Robbie Busby MD Active HYDRALAZINE HCL 50 MG ORAL TABLET TWO BY MOUTH THREE TIMES DAILY HYDRALAZINE HCL 14107528717 No Longer Active Jillina Frazell MIRROR INSPECTOR Active HYDROCODONE-ACETAMINOPHEN 5-325 MG ORAL TABLET 1 tab by mouth BID prn back pain HYDROCODONE-ACETAMINOPHEN 17411941207 No Longer Active Jillina Frazell MIRROR INSPECTOR Active HYDROCHLOROTHIAZIDE TABLET Take one by mouth daily HYDROCHLOROTHIAZIDE TABS 14749983968 No Longer Active Jillina Frazell MIRROR INSPECTOR Active LAMISIL 125 MG ORAL PACKET 1 TAB PO DAILY TERBINAFINE HCL 71924328652 No Longer Active Jillina Frazell MIRROR INSPECTOR Active TRILEPTAL 150 MG ORAL TABLET 1 TAB PO Q HS OXCARBAZEPINE 57495845977 No Longer Active Jillina Frazell MIRROR INSPECTOR Active BETADINE 10 % EXTERNAL SOLUTION wash with solution to treat follicultis 07/29 POVIDONE-IODINE 16599419865 No Longer Active Rober Rodríguez APRN Active NYSTATIN 162619 UNIT/ML MOUTH/THROAT SUSPENSION 5mL po QID x 10 days NYSTATIN 65095393890 No Longer Active Erin Mai APRN Active PREDNISONE 20 MG ORAL TABLET 1 tablet twice daily for 2 days, then 1 tablet once daily for 2 days PREDNISONE 47294506740 No Longer Active Robbie Busby MD Active CEFDINIR 300 MG ORAL CAPSULE Take 1 cap po bid x 10 days CEFDINIR 12019875577 No Longer Active Robbie Busby MD Active AMLODIPINE BESYLATE 10 MG ORAL TABLET 1 tablet by mouth daily AMLODIPINE BESYLATE 83888578585 Active Robbie Busby MD Active CARVEDILOL 25 MG ORAL TABLET 1 & 1/2 TAB po BID CARVEDILOL 25270792126 Active Robbie Busby MD Active NEXIUM 40 MG ORAL CAPSULE DELAYED RELEASE 1 cap by mouth daily ESOMEPRAZOLE MAGNESIUM 82686274101 Active Robbie Busby MD Active PROTONIX 40 MG INTRAVENOUS SOLUTION RECONSTITUTED 1 po qday for acid reflux PANTOPRAZOLE SODIUM 29417156152 No Longer Active Gali Raida Active KEFLEX 500 MG ORAL CAPSULE 1 po TID x 10 days CEPHALEXIN 34792059960 No Longer Active Robbie Busby MD Active ALPRAZOLAM 2 MG ORAL TABLET 1 TAB PO BID ALPRAZOLAM 50282612540 Active Robbie Busby MD Active FENOFIBRATE 145 MG ORAL TABLET Take one by mouth daily FENOFIBRATE 14792230000 No Longer Active Robbie Busby MD Active SPIRONOLACTONE 50 MG ORAL TABLET 1 tablet by mouth twice a day SPIRONOLACTONE 30448529675 No Longer Active Robbie Busby MD Active HYDRALAZINE HCL 25 MG ORAL TABLET 1 tablet by mouth tid for hypertension 2013 HYDRALAZINE HCL 91931949569 No Longer Active Robbie Busby MD Active VIIBRYD 40 MG ORAL TABLET take 1 tab po qday for depression. 2014 VILAZODONE HCL 82099646435 No Longer Active Robbie Busby MD Active TERBINAFINE HCL 250 MG ORAL TABLET 1 tab po qday for foot infection TERBINAFINE HCL 81599237441 No Longer Active Robbie Busby MD Active GABAPENTIN 300 MG ORAL CAPSULE 1 po q hs for nerve pain GABAPENTIN 26955878461 Active Robbie Busby MD Active CHERATUSSIN AC 100-10 MG/5ML ORAL SOLUTION 7.5 mL PO q 4-6 hrs PRN cough 2014 GUAIFENESIN-CODEINE 22294908368 No Longer Active Robbie Busby MD Active AZITHROMYCIN 250 MG ORAL TABLET 2 tablets PO today---then, 1 tablet PO daily x 4 more days (and 1 optional refill) AZITHROMYCIN 24061611076 No Longer Active Robbie Busby MD Active NORVASC 10 MG ORAL TABLET 1 tablet by mouth daily AMLODIPINE BESYLATE 61610299673 No Longer Active Alex ALVAREZ Active ISOSORBIDE DINITRATE 30 MG ORAL TABLET Take one by mouth daily ISOSORBIDE DINITRATE 08695664659 No Longer Active Robbie Busby MD Active VIIBRYD 40 MG ORAL TABLET 1 TA B PO DAILY VILAZODONE HCL 86894456094 Active Robbie Busby MD Active ZITHROMAX 250 MG ORAL TABLET 2 po today, then 1 po q days 2-5 AZITHROMYCIN 04110196438 No Longer Active Robbie Busby MD Active DOXAZOSIN MESYLATE 4 MG ORAL TABLET Take one by mouth daily DOXAZOSIN MESYLATE 77517260810 Active Robbie Busby MD Active VENLAFAXINE HCL ER 150 MG ORAL TABLET EXTENDED RELEASE 24 HOUR Take one by mouth daily VENLAFAXINE HCL 54972531692 Active Robbie Busby MD Active LIPITOR 40 MG ORAL TABLET Take one by mouth daily ATORVASTATIN CALCIUM 31990925019 Active Robbie Busby MD Active ISOSORBIDE DINITRATE 30 MG ORAL TABLET Take one by mouth daily ISOSORBIDE DINITRATE 30 MG ORAL TABLET 828284 ISOSORBIDE DINITRATE Inactive NORVASC 10 MG ORAL TABLET 1 tablet by mouth daily NORVASC 10 MG ORAL TABLET 050032 AMLODIPINE BESYLATE Inactive AZITHROMYCIN 250 MG ORAL TABLET 2 tablets PO today---then, 1 tablet PO daily x 4 more days (and 1 optional refill) AZITHROMYCIN 250 MG ORAL TABLET 813938 AZITHROMYCIN Inactive CHERATUSSIN AC 100-10 MG/5ML ORAL SOLUTION 7.5 mL PO q 4-6 hrs PRN cough 2014 CHERATUSSIN AC 100-10 MG/5ML ORAL SOLUTION 407302 GUAIFENESIN-CODEINE Inactive VIIBRYD 40 MG ORAL TABLET take 1 tab po qday for depression. 2014 VIIBRYD 40 MG ORAL TABLET VILAZODONE HCL Inactive HYDRALAZINE HCL 25 MG ORAL TABLET 1 tablet by mouth tid for hypertension 2013 HYDRALAZINE HCL 25 MG ORAL TABLET 406038 HYDRALAZINE HCL Inactive SPIRONOLACTONE 50 MG ORAL TABLET 1 tablet by mouth twice a day SPIRONOLACTONE 50 MG ORAL TABLET 954065 SPIRONOLACTONE Inactive FENOFIBRATE 145 MG ORAL TABLET Take one by mouth daily FENOFIBRATE 145 MG ORAL TABLET 472084 FENOFIBRATE Inactive PROTONIX 40 MG INTRAVENOUS SOLUTION RECONSTITUTED 1 po qday for acid reflux PROTONIX 40 MG INTRAVENOUS SOLUTION RECONSTITUTED 634976 PANTOPRAZOLE SODIUM Inactive CEFDINIR 300 MG ORAL CAPSULE Take 1 cap po bid x 10 days CEFDINIR 300 MG ORAL CAPSULE 645497 CEFDINIR Inactive PREDNISONE 20 MG ORAL TABLET 1 tablet twice daily for 2 days, then 1 tablet once daily for 2 days PREDNISONE 20 MG ORAL TABLET 644554 PREDNISONE Inactive NYSTATIN 871637 UNIT/ML MOUTH/THROAT SUSPENSION 5mL po QID x 10 days NYSTATIN 819669 UNIT/ML MOUTH/THROAT SUSPENSION 018292 NYSTATIN Inactive BETADINE 10 % EXTERNAL SOLUTION wash with solution to treat follicultis 07/29 BETADINE 10 % EXTERNAL SOLUTION 4178503 POVIDONE-IODINE Inactive TRILEPTAL 150 MG ORAL TABLET 1 TAB PO Q HS TRILEPTAL 150 MG ORAL TABLET 944064 OXCARBAZEPINE Inactive LAMISIL 125 MG ORAL PACKET 1 TAB PO DAILY LAMISIL 125 MG ORAL PACKET TERBINAFINE HCL Inactive HYDROCHLOROTHIAZIDE TABLET Take one by mouth daily HYDROCHLOROTHIAZIDE TABLET HYDROCHLOROTHIAZIDE TABS Inactive HYDROCODONE-ACETAMINOPHEN 5-325 MG ORAL TABLET 1 tab by mouth BID prn back pain HYDROCODONE-ACETAMINOPHEN 5-325 MG ORAL TABLET 714281 HYDROCODONE-ACETAMINOPHEN Inactive HYDRALAZINE HCL 50 MG ORAL TABLET TWO BY MOUTH THREE TIMES DAILY HYDRALAZINE HCL 50 MG ORAL TABLET 680317 HYDRALAZINE HCL Inactive LEVAQUIN 500 MG ORAL TABLET 1 tablet by mouth daily for 7 days LEVAQUIN 500 MG ORAL TABLET 281215 LEVOFLOXACIN Inactive SPIRONOLACTONE 25 MG ORAL TABLET 4 tablets by mouth daily SPIRONOLACTONE 25 MG ORAL TABLET 742247 SPIRONOLACTONE Inactive MECLIZINE HCL 25 MG ORAL TABLET one 4 times a day as needed for dizziness MECLIZINE HCL 25 MG ORAL TABLET 176677 MECLIZINE HCL Inactive CLONIDINE HCL 0.2 MG ORAL TABLET 1 TAB BY MOUTH EVERY 8 HOURS CLONIDINE HCL 0.2 MG ORAL TABLET 113948 CLONIDINE HCL Inactive CYCLOBENZAPRINE HCL 10 MG ORAL TABLET 1 tablet by mouth three times daily as needed for muscle spasm/pain for 10 days CYCLOBENZAPRINE HCL 10 MG ORAL TABLET 349720 CYCLOBENZAPRINE HCL Inactive VITAMIN D3 53144 UNIT ORAL CAPSULE 2 CAPS PO WEEKLY VITAMIN D3 24518 UNIT ORAL CAPSULE CHOLECALCIFEROL Inactive FIORICET 50-300-40 MG ORAL CAPSULE take 1 tab po qday prn migraines. FIORICET 50-300-40 MG ORAL CAPSULE 140350 BUTALBITAL-APAP- CAFFEINE Inactive FLONASE 50 MCG/ACT NASAL SUSPENSION 1 spray each nostril twice daily for allergies and runny nose FLONASE 50 MCG/ACT NASAL SUSPENSION 1367498 FLUTICASONE PROPIONATE Inactive LORATADINE 10 MG ORAL TABLET 1 tablet by mouth daily for congestion and allergies. LORATADINE 10 MG ORAL TABLET 009742 LORATADINE Inactive NITROSTAT 0.4 MG SUBLINGUAL TABLET SUBLINGUAL PRN NITROSTAT 0.4 MG SUBLINGUAL TABLET SUBLINGUAL 648286 NITROGLYCERIN Inactive GUAIFENESIN ER 600 MG ORAL TABLET EXTENDED RELEASE 12 HOUR 1 tab po q am 2016 GUAIFENESIN ER 600 MG ORAL TABLET EXTENDED RELEASE 12 HOUR GUAIFENESIN Inactive CYCLOBENZAPRINE HCL 10 MG ORAL TABLET 1 po TID PRN muscle spasm/pain for 10 days CYCLOBENZAPRINE HCL 10 MG ORAL TABLET 505562 CYCLOBENZAPRINE HCL Inactive TOPIRAMATE 50 MG ORAL TABLET take 1 tab po BID for migraines. TOPIRAMATE 50 MG ORAL TABLET 817330 TOPIRAMATE Inactive PREDNISONE 20 MG ORAL TABLET two tabs by mouth today, then one tab by mouth days two and three PREDNISONE 20 MG ORAL TABLET 550204 PREDNISONE Inactive TOPROL XL 200 MG ORAL TABLET EXTENDED RELEASE 24 HOUR Take one by mouth daily TOPROL XL 200 MG ORAL TABLET EXTENDED RELEASE 24 HOUR METOPROLOL SUCCINATE Inactive CYCLOBENZAPRINE HCL 10 MG ORAL TABLET 1 tablet by mouth three times daily as needed for muscle spasm/pain CYCLOBENZAPRINE HCL 10 MG ORAL TABLET 069027 CYCLOBENZAPRINE HCL Inactive TOPIRAMATE 50 MG ORAL TABLET 1 po BID for migraines TOPIRAMATE 50 MG ORAL TABLET 691397 TOPIRAMATE Inactive TEMAZEPAM 15 MG ORAL CAPSULE 1 TAB PO Q HS TEMAZEPAM 15 MG ORAL CAPSULE 638252 TEMAZEPAM Inactive IMDUR 60 MG ORAL TABLET EXTENDED RELEASE 24 HOUR take 1 tab po qday for blood pressure IMDUR 60 MG ORAL TABLET EXTENDED RELEASE 24 HOUR ISOSORBIDE MONONITRATE Inactive [id number]-FRE-7 0.3 MG/24HR TRANSDERMAL PATCH WEEKLY apply 2 patches q week for HTN MEUASAFY-VLA-6 0.3 MG/24HR TRANSDERMAL PATCH WEEKLY 311249 CLONIDINE HCL Inactive ZITHROMAX 250 MG ORAL TABLET 2 po today, then 1 po q days 2-5 ZITHROMAX 250 MG ORAL TABLET 168102 AZITHROMYCIN Inactive TERBINAFINE HCL 250 MG ORAL TABLET 1 tab po qday for foot infection TERBINAFINE HCL 250 MG ORAL TABLET 425171 TERBINAFINE HCL Inactive KEFLEX 500 MG ORAL CAPSULE 1 po TID x 10 days KEFLEX 500 MG ORAL CAPSULE 048238 CEPHALEXIN Inactive BACTRIM DS 800-160 MG ORAL TABLET 1 tab by mouth twice daily 2015 BACTRIM DS 800-160 MG ORAL TABLET 287243 TRIMETHOPRIM- SULFAMETHOXAZOLE Inactive PREDNISONE 20 MG ORAL TABLET take 3 tabs daily for 3 days, 2 tabs daily for 3 days, 1 tab daily for 3 days, 1/2 tab daily for 4 days PREDNISONE 20 MG ORAL TABLET 362147 PREDNISONE Inactive AZITHROMYCIN 250 MG ORAL TABLET 2 po qd x 1 day, then 1 po qd x 4 days 09/20 AZITHROMYCIN 250 MG ORAL TABLET 333459 AZITHROMYCIN Inactive SINGULAIR 10 MG ORAL TABLET 1 po qday for allergies. SINGULAIR 10 MG ORAL TABLET 897451 MONTELUKAST SODIUM Inactive Advance Directives Directive Description [...] AUTO - Chemistry sodium, serum 142 mmol/L 934-835 2072/07/17 carbon dioxide, venous blood 28.2 mmol/L 21.0-32.0 [...] Panel - Chemistry sodium, serum 141 mmol/L 719-176 1978/02/13 carbon dioxide, venous blood 23.9 mmol/L 21.0-32.0 [...] 6.9 % 4.3-6.0 sodium, serum 139 mmol/L 918-223 0698/01/04 potassium, serum 3.9 mmol/L 3.5-5.2 chloride, serum [...] 1.80 ng/mL 0.00-4.00 Lab Report: VITAMIN D, 25-HYDROXY/35175 - Chemistry vitamin D 25-hydroxy, serum 25 ng/mL 30-100 Encounters Code Encounter Date Provider Facility CPT-05691 Level 3 Est. Patient 16:04:17 CDT Robbie Busby MD [facility] CPT-27367 Level 4 Est. Patient 09:50:01 CLIENT SOLUTIONS DIRECTOR Robbie Busby MD [facility] CPT-06735 Level 4 Est. Patient 09:42:08 CLIENT SOLUTIONS DIRECTOR Robbie Busby MD [facility] CPT-01092 Level 4 Est. Patient 13:07:39 CLIENT SOLUTIONS DIRECTOR Robbie Busby MD [facility] CPT-31332 Level 4 Est. Patient 15:23:44 CLIENT SOLUTIONS DIRECTOR Desmond Diaz DO [facility] CPT-71536 Level 3 Est. Patient 15:40:49 CDT Robbie Busby MD [facility] CPT-34682 Level 4 Est. Patient 15:18:19 CDT Robbie Busby MD [facility] CPT-68184 Level 3 Est. Patient 09:00:37 CDT Rober Rodolfoneha [facility] CPT-93917 Level 3 Est. Patient 16:07:10 CDT Robbie Busby MD [facility] CPT-52141 Level 4 Est. Patient 11:56:16 CDT Erin Miguelzane [facility] CPT-01621 Level 3 Est. Patient 17:48:02 CDT Robbie Busby MD [facility] CPT-93765 Level 4 Est. Patient 12:00:49 CLIENT SOLUTIONS DIRECTOR Rober Rodríguez [facility] CPT-45586 Level 3 Est. Patient 09:16:37 CDT Robbie Busby MD [facility] CPT-64931 Level 3 Est. Patient 19:38:43 CDT Robbie Busby MD [facility] CPT-11735 Level 3 Est. Patient 11:53:38 CDT Robbie Busby MD [facility] CPT-23371 Level 4 Est. Patient 12:52:22 CDT Rober Rodríguez [facility] CPT-80892 Level 4 Est. Patient 22:55:17 CDT Robbie Busby MD [facility] CPT-76150 Level 3 Est. Patient 12:38:24 CDT Desmond Diaz DO [facility] CPT-92789 Level 4 Est. Patient 11:25:03 CLIENT SOLUTIONS DIRECTOR Robbie Busby MD [facility] CPT-35093 Level 4 Est. Patient 14:50:10 CDT Robbie Busby MD [facility] CPT-40800 Level 4 Est. Patient 23:30:43 CDT Robbie Busby MD [facility] CPT-51126 Level 4 Est. Patient 10:30:43 CDT Robbie Busby MD [facility] CPT-90749 Level 3 Est. Patient 17:08:12 CDT Alex ALVAREZ [facility] CPT-09573 Level 4 Est. Patient 17:51:38 CDT Robbie Busby MD [facility] CPT-25013 Level 4 Est. Patient 14:00:21 CDT Robbie Busby MD [facility] CPT-11664 Level 4 Est. Patient 12:46:48 CDT Robbie Busby MD [facility] CPT-84378 Level 4 Est. Patient 13:34:33 CDT Robbie Busby MD [facility] CPT-10220 Level 4 Est. Patient 16:58:28 CDT Robbie Busby MD [facility] CPT-84086 Level 3 Est. Patient 19:36:53 CDT Alex Shaw [facility] CPT-37596 Level 3 Est. Patient 12:58:15 CDT Robbie Busby MD [facility] Procedures Code Procedure Name Date Entry Date Standard Description CPT-J1100 Decadron 8mg (Dexamethasone) 16:04:17 CDT CPT-J1040 Depo Medrol 80 mg (Methyl Prednisolone Acetate) 16:04: 17 CDT CPT-J1071 Depo Testosterone 200mg 08:56:46 CDT CPT-01167 Abx/Therapy Injection 08:56:45 CDT CPT-J1071 Depo Testosterone 200mg 08:26:27 CDT CPT-65398 Abx/Therapy Injection 08:26:27 CDT CPT-J1071 Depo Testosterone 200mg 10:27:10 CDT CPT-46166 Abx/Therapy Injection 10:27:10 CDT CPT-J1071 Depo Testosterone 200mg 16:10:29 CLIENT SOLUTIONS DIRECTOR CPT-79993 Abx/Therapy Injection 16:10:29 CLIENT SOLUTIONS DIRECTOR CPT-J1071 Depo Testosterone 200mg 16:13:47 CLIENT SOLUTIONS DIRECTOR CPT-23020 Abx/Therapy Injection 16:13:46 CLIENT SOLUTIONS DIRECTOR CPT-J1071 Depo Testosterone 200mg 15:33:58 CLIENT SOLUTIONS DIRECTOR CPT-36710 Abx/Therapy Injection 15:33:58 CLIENT SOLUTIONS DIRECTOR CPT-J1071 Depo Testosterone 200mg 09:38:36 CLIENT SOLUTIONS DIRECTOR CPT-98422 Abx/Therapy Injection 09:38:36 CLIENT SOLUTIONS DIRECTOR CPT-J1071 Depo Testosterone 200mg 10:22:56 CLIENT SOLUTIONS DIRECTOR CPT-38610 Abx/Therapy Injection 10:22:56 CLIENT SOLUTIONS DIRECTOR CPT-J1071 Depo Testosterone 200mg 15:40:23 CDT CPT-31835 Abx/Therapy Injection 15:40:23 CDT CPT-J1071 Depo Testosterone 200mg 14:20:43 CDT CPT-81388 Abx/Therapy Injection 14:20:43 CDT CPT-J1071 Depo Testosterone 200mg 14:17:22 CDT CPT-68773 Abx/Therapy Injection 14:17:22 CDT CPT-J1071 Depo Testosterone 200mg 09:03:53 CDT CPT-81018 Abx/Therapy Injection 09:03:53 CDT CPT-G0439 Subsequent Annual Wellness Exam 16:47:44 CDT CPT-J1071 Depo Testosterone 200mg 09:06:28 CDT CPT-34711 Abx/Therapy Injection 09:06:28 CDT CPT-J1071 Depo Testosterone 200mg 08:30:01 CDT CPT-32210 Abx/Therapy Injection 08:30:01 CDT CPT-J1071 Depo Testosterone 200mg 08:24:00 CDT CPT-57502 Abx/Therapy Injection 08:24:00 CDT CPT-41312 Venipuncture Draw Fee 14:39:06 CDT CPT-50801 Ribs unilateral 2V - XRAY USE ONLY 12:10:11 CDT CPT-93301 First Vx - Ix admin for Medicare patients 16:32:53 CDT CPT-02226 Boostrix Intramuscular Suspension 5-2.5-18.5 16:32:53 CDT CPT-68945 TB Skin Test 11:42:28 CDT CPT-11368 Tdap 7yrs or > 11:42:28 CDT CPT-J0696 Rocephin 1000 mg (Ceftriaxone) 17:43:43 CLIENT SOLUTIONS DIRECTOR CPT-J1040 Depo Medrol 80 mg (Methyl Prednisolone Acetate) 17:43: 43 CLIENT SOLUTIONS DIRECTOR CPT-J1100 Decadron 8mg (Dexamethasone) 17:43:42 CLIENT SOLUTIONS DIRECTOR CPT-90079 Abx/Therapy Injection 17:43:42 CLIENT SOLUTIONS DIRECTOR CPT-24066 Abx/Therapy Injection 17:43:42 CLIENT SOLUTIONS DIRECTOR CPT-J1040 Depo Medrol 80 mg (Methyl Prednisolone Acetate) 09:43: 34 CLIENT SOLUTIONS DIRECTOR CPT-J1100 Decadron 8mg (Dexamethasone) 09:43:34 CLIENT SOLUTIONS DIRECTOR CPT-J0696 Rocephin 1gm Inj Solr 09:43:34 CLIENT SOLUTIONS DIRECTOR CPT-71759 Wound Culture - LAB USE ONLY 14:00:21 CDT CPT-I/D I/D Abscess 09:16:37 CDT CPT-60731 Venipuncture Draw Fee 15:20:23 CDT CPT-76218 Microalbumin - LAB USE ONLY 16:02:19 CDT CPT-45731 CBC - LAB USE ONLY 16:02:19 CDT CPT-33918 Venipuncture Draw Fee 16:02:19 CDT CPT-G0438 Initial Annual Wellness Exam 08:10:28 CDT CPT-77207 Venipuncture Draw Fee 13:07:17 CDT CPT-G0008 Administration of Influenza Virus Vaccine 16:09:59 CDT CPT-68543 Fluzone Quadrivalent Intramuscular Suspension 0.5 ML 16: 09:59 CDT CPT-01317 Spec Collection and Handling Fee 15:05:50 CDT
--- OUTSIDE RECORDS SUMMARY | 2018-04-18 12:37 | XMS REPORT | Clinical Summary ---
Author Author Admin, [facility] Organization [facility] Address Unknown Phone Unavailable Allergies, [...] cause unspecified Onychomycosis, toenails 110.1 Active Robbie Bubsy MD Dermatophytosis of nail Dizziness 780.4 Active Robbie Busby MD Dizziness and giddiness Medication List Medication Instructions Start Date Stop Date Generic Name NDC Status Provider Patient Instruction MECLIZINE HCL 25 MG TAB one 4 times a day as needed for dizziness MECLIZINE HCL 95252294811 Active Robbie Busby MD Active TRILEPTAL 150 MG ORAL TABS 1 TAB PO Q HS OXCARBAZEPINE 60236212340 Active Robbie Busby MD Active TEMAZEPAM 15 MG ORAL CAPS 1 TAB PO Q HS TEMAZEPAM 65039778881 Active Robbie Busby MD Active ALPRAZOLAM 2 MG ORAL TABS 1 TAB PO BID ALPRAZOLAM 35737972633 Active Robbie Busby MD Active FENOFIBRATE 145 MG TABS Take one by mouth daily FENOFIBRATE 54192860782 No Longer Active Robbie Busby MD Active LAMISIL 125 MG ORAL PACK 1 TAB PO DAILY TERBINAFINE HCL 56250756252 Active Robbie Busby MD Active SPIRONOLACTONE 50 MG TABS 1 tablet by mouth twice a day SPIRONOLACTONE 55181469785 No Longer Active Robbie Busby MD Active HYDRALAZINE HCL 25 MG TABS 1 tablet by mouth tid for hypertension HYDRALAZINE HCL 31784961518 No Longer Active Robbie Busby MD Active VIIBRYD 40 MG TABS take 1 tab po qday for depression. VILAZODONE HCL 84385142126 No Longer Active Robbie Busby MD Active TERBINAFINE HCL 250 MG TABS 1 tab po qday for foot infection 2014 TERBINAFINE HCL 28463910393 No Longer Active Robbie Busby MD Active GABAPENTIN 300 MG CAPS 1 po q hs for nerve pain GABAPENTIN 23121376330 Active Robbie Busby MD Active FLONASE 50 MCG/ACT SUSP 1 spray each nostril twice daily for allergies and runny nose FLUTICASONE PROPIONATE 31243054963 Active Robbie Busby MD Active CHERATUSSIN AC 100-10 MG/5ML ORAL SOLN 7.5 mL PO q 4-6 hrs PRN cough GUAIFENESIN-CODEINE 67860396054 No Longer Active Robbie Busby MD Active AZITHROMYCIN 250 MG ORAL TABS 2 tablets PO today---then, 1 tablet PO daily x 4 more days (and 1 optional refill) AZITHROMYCIN 40136383200 No Longer Active Robbie Busby MD Active CLONIDINE HCL 0.2 MG ORAL TABS 1 TAB BY MOUTH EVERY 8 HOURS CLONIDINE HCL 85996333642 Active Robbie Busby MD Active HYDROCHLOROTHIAZIDE TABS Take one by mouth daily HYDROCHLOROTHIAZIDE TABS 93755172312 Active Alex ALVAREZ Active NORVASC 10 MG TAB 1 tablet by mouth daily AMLODIPINE BESYLATE 70782002706 No Longer Active Alex ALVAREZ Active PROTONIX 40 MG SOLR 1 po qday for acid reflux PANTOPRAZOLE SODIUM 44933013382 Active Robbie Busby MD Active IMDUR 60 MG TAB CR take 1 tab po qday for blood pressure ISOSORBIDE MONONITRATE Active Robbie Busby MD Active ISOSORBIDE DINITRATE 30 MG TABS Take one by mouth daily ISOSORBIDE DINITRATE 36219680810 No Longer Active Robbie Busby MD Active VIIBRYD 40 MG TABS 1 TA B PO DAILY VILAZODONE HCL 68909032357 Active Robbie Busby MD Active LORATADINE 10 MG TABS 1 tablet by mouth daily for congestion and allergies. LORATADINE 54994852392 Active Robbie Busby MD Active ZITHROMAX 250 MG TAB 2 po today, then 1 po q days 2-5 AZITHROMYCIN 20859388063 No Longer Active Robbie Busby MD Active HYDROCODONE-ACETAMINOPHEN 5-325 MG TABS 1 tab by mouth BID prn back pain 2013 HYDROCODONE-ACETAMINOPHEN 59528160973 Active Robbie Busby MD Active HYDRALAZINE HCL 50 MG TABS take 1 tab po QID for high blood pressure HYDRALAZINE HCL 57017150359 Active Robbie Busby MD Active [id number] 0.3 MG/24HR PTWK apply 2 patches q week for HTN CLONIDINE HCL 10922384950 Active Alexa Menon MD PhD Active NITROSTAT 0.4 MG SUBL PRN NITROGLYCERIN 64874306946 Active Robbie Busby MD Active DOXAZOSIN MESYLATE 4 MG TABS Take one by mouth daily DOXAZOSIN MESYLATE 06621603525 Active Robbie Busby MD Active TOPROL XL 200 MG [id number] Take one by mouth daily METOPROLOL SUCCINATE 21123985508 Active Robbie Busby MD Active VENLAFAXINE HCL ER 150 MG [id number] Take one by mouth daily VENLAFAXINE HCL 91233593529 Active Robbie Busby MD Active LIPITOR 40 MG TABS Take one by mouth daily ATORVASTATIN CALCIUM 63056880988 Active Robbie Busby MD Active ISOSORBIDE DINITRATE 30 MG TABS Take one by mouth daily ISOSORBIDE DINITRATE 30 MG TABS 890272 ISOSORBIDE DINITRATE Inactive NORVASC 10 MG TAB 1 tablet by mouth daily NORVASC 10 MG TAB 670328 AMLODIPINE BESYLATE Inactive AZITHROMYCIN 250 MG ORAL TABS 2 tablets PO today---then, 1 tablet PO daily x 4 more days (and 1 optional refill) AZITHROMYCIN 250 MG ORAL TABS 3965199 AZITHROMYCIN Inactive CHERATUSSIN AC 100-10 MG/5ML ORAL SOLN 7.5 mL PO q 4-6 hrs PRN cough CHERATUSSIN AC 100-10 MG/5ML ORAL SOLN 777031 GUAIFENESIN- CODEINE Inactive VIIBRYD 40 MG TABS take 1 tab po qday for depression. VIIBRYD 40 MG TABS VILAZODONE HCL Inactive HYDRALAZINE HCL 25 MG TABS 1 tablet by mouth tid for hypertension HYDRALAZINE HCL 25 MG TABS 471821 HYDRALAZINE HCL Inactive SPIRONOLACTONE 50 MG TABS 1 tablet by mouth twice a day SPIRONOLACTONE 50 MG TABS 684878 SPIRONOLACTONE Inactive FENOFIBRATE 145 MG TABS Take one by mouth daily FENOFIBRATE 145 MG TABS 177549 FENOFIBRATE Inactive ZITHROMAX 250 MG TAB 2 po today, then 1 po q days 2-5 ZITHROMAX 250 MG TAB 1862561 AZITHROMYCIN Inactive TERBINAFINE HCL 250 MG TABS 1 tab po qday for foot infection 2014 TERBINAFINE HCL 250 MG TABS 425632 TERBINAFINE HCL Inactive Vital Signs Date Name [...] Panel - Chemistry sodium, serum 141 mmol/L 118-527 3465/12/05 potassium, serum 4.0 mmol/L 3.5-5.2 chloride, serum [...] 0.60-1.30 Encounters Code Encounter Date Provider Facility CPT-43021 Level 4 Est. Patient 14:50:10 CDT Robbie Busby MD [facility] CPT-60439 Level 4 Est. Patient 23:30:43 CDT Robbie Busby MD [facility] CPT-71409 Level 4 Est. Patient 10:30:43 CDT Robbie Busby MD [facility] CPT-96643 Level 3 Est. Patient 17:08:12 CDT Alex Shaw [facility] CPT-64153 Level 4 Est. Patient 17:51:38 CDT Robbie Busby MD [facility] CPT-99331 Level 4 Est. Patient 14:00:21 CDT Robbie Busby MD [facility] CPT-08105 Level 4 Est. Patient 12:46:48 CDT Robbie Busby MD [facility] CPT-98447 Level 4 Est. Patient 13:34:33 CDT Robbie Busby MD [facility] CPT-37495 Level 4 Est. Patient 16:58:28 CDT Robbie Busby MD [facility] CPT-12219 Level 3 Est. Patient 19:36:53 CDT Alex ALVAREZ [facility] CPT-02735 Level 3 Est. Patient 12:58:15 CDT Robbie Busby MD [facility] Procedures Code Procedure Name Date Entry Date Standard Description CPT-G0008 Administration of Influenza Virus Vaccine 16:09:59 CDT CPT-90114 Fluzone Quadrivalent Intramuscular Suspension 0.5 ML 16: 09:59 CDT CPT-54981 Spec Collection and Handling Fee 15:05:50 CDT
--- OUTSIDE RECORDS SUMMARY | 2018-04-18 12:37 | XMS REPORT | Clinical Summary ---
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 Rober Rodríguez REFERRAL RN Other malignant secondary hypertension Tachycardia 785.0 Active Rober Rodríguez APRN Tachycardia, unspecified Insect bite, infected 919.5 Active Robbie Busby MD Insect bite, nonvenomous, of other, multiple, and unspecified sites, infected Abscess, skin 682.9 Active Robbie Busby MD Cellulitis and abscess of unspecified sites URI 465.9 Active Agnieszkaina Anne GONZALEZN Acute upper respiratory infections of unspecified site Hypertension 401.9 Active Rober Rodríguez APRN Unspecified essential hypertension Medication List Medication Instructions Start Date Stop Date Generic Name NDC Status Provider Patient Instruction BACTRIM DS 800-160 MG TAB 1 tab by mouth twice daily TRIMETHOPRIM-SULFAMETHOXAZOLE 89896240638 No Longer Active Robbie Busby MD Active SPIRONOLACTONE 25 MG TAB 4 tablets by mouth daily SPIRONOLACTONE 46258669718 Active Robbie Busby MD Active HYDRALAZINE HCL 50 MG ORAL TABS TWO BY MOUTH THREE TIMES DAILY HYDRALAZINE HCL 12302082083 No Longer Active Andrellina Anne GONZALEZN Active HYDROCODONE-ACETAMINOPHEN 5-325 MG TABS 1 tab by mouth BID prn back pain 2013 HYDROCODONE-ACETAMINOPHEN 44900738457 No Longer Active Jillina Anne GONZALEZN Active HYDROCHLOROTHIAZIDE TABS Take one by mouth daily HYDROCHLOROTHIAZIDE TABS 78206879961 No Longer Active Jillina Frakierstenl REFERRAL RN Active LAMISIL 125 MG ORAL PACK 1 TAB PO DAILY TERBINAFINE HCL 32518074385 No Longer Active Jillina Zulemal REFERRAL RN Active TRILEPTAL 150 MG ORAL TABS 1 TAB PO Q HS OXCARBAZEPINE 74742555947 No Longer Active Jillina Frakierstenl REFERRAL RN Active BETADINE 10 % EXT SOLN wash with solution to treat follicultis POVIDONE-IODINE 48129058958 No Longer Active Jillina Frazell SAUNDRA Active NYSTATIN 983781 UNIT/ML M/T SUSP 5mL po QID x 10 days NYSTATIN 42054824544 No Longer Active Erin Garsia APRN Active PREDNISONE 20 MG TAB 1 tablet twice daily for 2 days, then 1 tablet once daily for 2 days PREDNISONE 62311057783 No Longer Active Robbie Busby MD Active CEFDINIR 300 MG ORAL CAPS Take 1 cap po bid x 10 days CEFDINIR 50484463306 No Longer Active Robbie Busby MD Active AMLODIPINE BESYLATE 10 MG TABS 1 tablet by mouth daily AMLODIPINE BESYLATE 22611874600 Active Robbie Busby MD Active CARVEDILOL 25 MG TABS 1 & 1/2 TAB po BID CARVEDILOL 15615014032 Active Erin Garsia APRN Active VITAMIN D3 63180 UNIT CAPS 2 CAPS PO WEEKLY CHOLECALCIFEROL 79905310143 Active Erin Garsia APRN Active NEXIUM 40 MG CPDR 1 cap by mouth daily ESOMEPRAZOLE MAGNESIUM 22707350925 Active Robbie Busby MD Active PROTONIX 40 MG SOLR 1 po qday for acid reflux PANTOPRAZOLE SODIUM 47669761760 No Longer Active Gali Raida Active KEFLEX 500 MG CAP 1 po TID x 10 days CEPHALEXIN 63154775139 No Longer Active Robbie Busby MD Active FIORICET 50-300-40 MG ORAL CAPS take 1 tab po qday prn migraines. [id number] 84674076622 Active Robbie Busby MD Active TOPIRAMATE 50 MG ORAL TABS take 1 tab po BID for migraines. TOPIRAMATE 10560578450 Active Robbie Busby MD Active MECLIZINE HCL 25 MG TAB one 4 times a day as needed for dizziness MECLIZINE HCL 96056689427 Active Robbie Busby MD Active TEMAZEPAM 15 MG ORAL CAPS 1 TAB PO Q HS TEMAZEPAM 54424350243 Active Robbie Busby MD Active ALPRAZOLAM 2 MG ORAL TABS 1 TAB PO BID ALPRAZOLAM 56382431805 Active Robbie Busby MD Active FENOFIBRATE 145 MG TABS Take one by mouth daily FENOFIBRATE 27010497331 No Longer Active Robbie Busby MD Active SPIRONOLACTONE 50 MG TABS 1 tablet by mouth twice a day SPIRONOLACTONE 67119920898 No Longer Active Robbie Busby MD Active HYDRALAZINE HCL 25 MG TABS 1 tablet by mouth tid for hypertension HYDRALAZINE HCL 18001500089 No Longer Active Robbie Busby MD Active VIIBRYD 40 MG TABS take 1 tab po qday for depression. VILAZODONE HCL 94947236677 No Longer Active Robbie Busby MD Active TERBINAFINE HCL 250 MG TABS 1 tab po qday for foot infection 2014 TERBINAFINE HCL 55802026116 No Longer Active Robbie Busby MD Active GABAPENTIN 300 MG CAPS 1 po q hs for nerve pain GABAPENTIN 13406768173 Active Robbie Busby MD Active FLONASE 50 MCG/ACT SUSP 1 spray each nostril twice daily for allergies and runny nose FLUTICASONE PROPIONATE 97060436249 Active Robbie Busby MD Active CHERATUSSIN AC 100-10 MG/5ML ORAL SOLN 7.5 mL PO q 4-6 hrs PRN cough GUAIFENESIN-CODEINE 21918662018 No Longer Active Robbie Busby MD Active AZITHROMYCIN 250 MG ORAL TABS 2 tablets PO today---then, 1 tablet PO daily x 4 more days (and 1 optional refill) AZITHROMYCIN 02788670381 No Longer Active Robbie Busby MD Active CLONIDINE HCL 0.2 MG ORAL TABS 1 TAB BY MOUTH EVERY 8 HOURS CLONIDINE HCL 75362793051 Active Robbie Busby MD Active NORVASC 10 MG TAB 1 tablet by mouth daily AMLODIPINE BESYLATE 39142300074 No Longer Active Alex ALVAREZ Active IMDUR 60 MG TAB CR take 1 tab po qday for blood pressure ISOSORBIDE MONONITRATE Active Robbie Busby MD Active ISOSORBIDE DINITRATE 30 MG TABS Take one by mouth daily ISOSORBIDE DINITRATE 15838472010 No Longer Active Robbie Busby MD Active VIIBRYD 40 MG TABS 1 TA B PO DAILY VILAZODONE HCL 64925955582 Active Robbie Busby MD Active LORATADINE 10 MG TABS 1 tablet by mouth daily for congestion and allergies. LORATADINE 18925140417 Active Robbie Busby MD Active ZITHROMAX 250 MG TAB 2 po today, then 1 po q days 2-5 AZITHROMYCIN 73247597868 No Longer Active Robbie Busby MD Active [id number] 0.3 MG/24HR PTWK apply 2 patches q week for HTN CLONIDINE HCL 13518365016 Active Robbie Busby MD Active NITROSTAT 0.4 MG SUBL PRN NITROGLYCERIN 67828670662 Active Robbie Busby MD Active DOXAZOSIN MESYLATE 4 MG TABS Take one by mouth daily DOXAZOSIN MESYLATE 24842545897 Active Erin Garsia APRN Active TOPROL XL 200 MG [id number] Take one by mouth daily METOPROLOL SUCCINATE 29203545373 Active Robbie Busby MD Active VENLAFAXINE HCL ER 150 MG [id number] Take one by mouth daily VENLAFAXINE HCL 24570254568 Active Robbie Busby MD Active LIPITOR 40 MG TABS Take one by mouth daily ATORVASTATIN CALCIUM 62673613340 Active Robbie Busby MD Active ISOSORBIDE DINITRATE 30 MG TABS Take one by mouth daily ISOSORBIDE DINITRATE 30 MG TABS 894966 ISOSORBIDE DINITRATE Inactive NORVASC 10 MG TAB 1 tablet by mouth daily NORVASC 10 MG TAB 711204 AMLODIPINE BESYLATE Inactive AZITHROMYCIN 250 MG ORAL TABS 2 tablets PO today---then, 1 tablet PO daily x 4 more days (and 1 optional refill) AZITHROMYCIN 250 MG ORAL TABS 1386576 AZITHROMYCIN Inactive CHERATUSSIN AC 100-10 MG/5ML ORAL SOLN 7.5 mL PO q 4-6 hrs PRN cough CHERATUSSIN AC 100-10 MG/5ML ORAL SOLN 375998 GUAIFENESIN- CODEINE Inactive VIIBRYD 40 MG TABS take 1 tab po qday for depression. VIIBRYD 40 MG TABS VILAZODONE HCL Inactive HYDRALAZINE HCL 25 MG TABS 1 tablet by mouth tid for hypertension HYDRALAZINE HCL 25 MG TABS 570379 HYDRALAZINE HCL Inactive SPIRONOLACTONE 50 MG TABS 1 tablet by mouth twice a day SPIRONOLACTONE 50 MG TABS 443906 SPIRONOLACTONE Inactive FENOFIBRATE 145 MG TABS Take one by mouth daily FENOFIBRATE 145 MG TABS 929938 FENOFIBRATE Inactive PROTONIX 40 MG SOLR 1 po qday for acid reflux PROTONIX 40 MG SOLR 048277 PANTOPRAZOLE SODIUM Inactive CEFDINIR 300 MG ORAL CAPS Take 1 cap po bid x 10 days CEFDINIR 300 MG ORAL CAPS 611696 CEFDINIR Inactive PREDNISONE 20 MG TAB 1 tablet twice daily for 2 days, then 1 tablet once daily for 2 days PREDNISONE 20 MG TAB 757206 PREDNISONE Inactive NYSTATIN 883510 UNIT/ML M/T SUSP 5mL po QID x 10 days NYSTATIN 969275 UNIT/ML M/T SUSP 638727 NYSTATIN Inactive BETADINE 10 % EXT SOLN wash with solution to treat follicultis BETADINE 10 % EXT SOLN 8187650 POVIDONE-IODINE Inactive TRILEPTAL 150 MG ORAL TABS 1 TAB PO Q HS TRILEPTAL 150 MG ORAL TABS 940920 OXCARBAZEPINE Inactive LAMISIL 125 MG ORAL PACK 1 TAB PO DAILY LAMISIL 125 MG ORAL PACK TERBINAFINE HCL Inactive HYDROCHLOROTHIAZIDE TABS Take one by mouth daily HYDROCHLOROTHIAZIDE TABS HYDROCHLOROTHIAZIDE TABS Inactive HYDROCODONE-ACETAMINOPHEN 5-325 MG TABS 1 tab by mouth BID prn back pain 2013 HYDROCODONE-ACETAMINOPHEN 5-325 MG TABS 846434 HYDROCODONE -ACETAMINOPHEN Inactive HYDRALAZINE HCL 50 MG ORAL TABS TWO BY MOUTH THREE TIMES DAILY HYDRALAZINE HCL 50 MG ORAL TABS 790190 HYDRALAZINE HCL Inactive ZITHROMAX 250 MG TAB 2 po today, then 1 po q days 2-5 ZITHROMAX 250 MG TAB 0226951 AZITHROMYCIN Inactive TERBINAFINE HCL 250 MG TABS 1 tab po qday for foot infection 2014 TERBINAFINE HCL 250 MG TABS 705673 TERBINAFINE HCL Inactive KEFLEX 500 MG CAP 1 po TID x 10 days KEFLEX 500 MG CAP 293979 CEPHALEXIN Inactive BACTRIM DS 800-160 MG TAB 1 tab by mouth twice daily BACTRIM DS 800-160 MG TAB 252175 TRIMETHOPRIM-SULFAMETHOXAZOLE Inactive Advance Directives Directive Description Start Date DISCUSSED WITH PATIENT -- NO DECISION MADE Vital Signs Date Name Value Unit Range Description blood pressure, diastolic - 8462-4 127 mm[Hg] [...] - Hematology hemoglobin, blood 14.4 g/dL 13.5-17.5 mean corpuscular volume, RBC 90 fL 80-97 mean corpuscular hemoglobin, RBC 30.4 pg 27.0-31.2 mean corpuscular hemoglobin concentration, RBC 33.9 G/DL % 31.8- 35.4 red blood cell distribution width 15.4 % 11.6-14.8 platelet count 229 10^3/MM^3 10*3/mm3 801-258 7541/09/06 hematocrit, blood 42.4 % 41.0-53.0 leukocyte count, blood 9.7 10^3/MM^3 10*3/mm3 4.6-10.2 erythrocyte (RBC) count 4.72 10^6/MM^3 10*6/mm3 4.69-6.13 Lab Report: Comp. Metabolic Panel, Uric Acid - Chemistry urea nitrogen, blood 29 mg/dL 7-18 creatinine, serum 1.65 mg/dL 0.55-1.30 alanine aminotransferase (SGPT), serum 40 U/L 12-78 aspartate aminotransferase (SGOT), serum 21 U/L 15-37 calcium, serum 9.4 mg/dL 8.5-10.1 bilirubin, serum, total 0.60 mg/dL 0.00-1.00 uric acid, serum 10.7 mg/dL 2.6-7.2 blood glucose 104 mg/dL 65-110 chloride, serum 104 mmol/L 98-107 potassium, serum 4.1 mmol/L 3.5-5.2 carbon dioxide, venous blood 29.4 mmol/L 21.0-32.0 sodium, serum 139 mmol/L 136-145 Lab Report: HEPATITIS B SAB/Immune Status, RUBELLA IGG AB(Immune Status) - Serology rubella antibody, serum, IgG 2.06 Lab Report: MICROALB/CREAT W/RATIO - Chemistry albumin/creatinine ratio, urine < 30 mg/g mg/g{creat} 0-29 Lab Report: MICROALB/CREAT W/RATIO - Lab microalbumin, urine 80 0-19 Lab Report: RapidStrep Rflx/Cx - Lab Microbial identification kit, rapid strep method Negative-Throat Culture to Follow Negative Lab Report: VITAMIN D, 25-HYDROXY/86770 - Chemistry vitamin D 25-hydroxy, serum 23 ng/mL 30-100 Encounters Code Encounter Date Provider Facility CPT-98464 Level 4 Est. 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 Patient 09:16:37 CDT Robbie Busby MD [facility] CPT-65514 Level 3 Est. Patient 19:38:43 CDT Robbie Busby MD [facility] CPT-33594 Level 3 Est. Patient 11:53:38 CDT Robbie Busby MD [facility] CPT-83377 Level 4 Est. Patient 12:52:22 CDT Rober Rodríguez [facility] CPT-23541 Level 4 Est. Patient 22:55:17 CDT Robbie Busby MD [facility] CPT-68309 Level 3 Est. Patient 12:38:24 CDT Desmond Diaz DO [facility] CPT-85989 Level 4 Est. 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 Patient 14:50:10 CDT Robbie Busby MD [facility] CPT-16368 Level 4 Est. Patient 23:30:43 CDT Robbie Busby MD [facility] CPT-16622 Level 4 Est. Patient 10:30:43 CDT Robbie Busby MD [facility] CPT-94967 Level 3 Est. Patient 17:08:12 CDT Alex Shaw [facility] CPT-52194 Level 4 Est. Patient 17:51:38 CDT Robbie Busby MD [facility] CPT-71397 Level 4 Est. Patient 14:00:21 CDT Robbie Busby MD [facility] CPT-27805 Level 4 Est. Patient 12:46:48 CDT Robbie Busby MD [facility] CPT-46808 Level 4 Est. Patient 13:34:33 CDT Robbie Busby MD [facility] CPT-92185 Level 4 Est. Patient 16:58:28 CDT Robbie Busby MD [facility] CPT-07541 Level 3 Est. Patient 19:36:53 CDT Alex Shaw [facility] CPT-77304 Level 3 Est. Patient 12:58:15 CDT Robbie Busby MD [facility] Procedures Code Procedure Name Date Entry Date Standard Description CPT-78096 Wound Culture - LAB USE ONLY 14:00:21 CDT CPT-I/D I/D Abscess 09:16:37 CDT CPT-84015 Venipuncture Draw Fee 15:20:23 CDT CPT-80749 Microalbumin - LAB USE ONLY 16:02:19 CDT CPT-28040 CBC - LAB USE ONLY 16:02:19 CDT CPT-80475 Venipuncture Draw Fee 16:02:19 CDT CPT-G0438 Initial Annual Wellness Exam 08:10:28 CDT CPT-11624 Venipuncture Draw Fee 13:07:17 CDT CPT-G0008 Administration of Influenza Virus Vaccine 16:09:59 CDT CPT-59073 Fluzone Quadrivalent Intramuscular Suspension 0.5 ML 16: 09:59 CDT CPT-54986 Spec Collection and Handling Fee 15:05:50 CDT
--- OUTSIDE RECORDS SUMMARY | 2018-04-18 12:38 | XMS REPORT | Clinical Summary ---
Author Author Admin, AKUA Organization [employer] Address Unknown Phone Unavailable Allergies, Adverse Reactions, [...] muscle spasm/pain for 10 days CYCLOBENZAPRINE HCL 58282830695 Active Erin Garsia APRN Active PREDNISONE 20 MG TAB take 3 tabs daily for 3 days, 2 tabs daily for 3 days, 1 tab daily for 3 days, 1/2 tab daily for 4 days PREDNISONE 46678075200 No Longer Active Erin Garsia APRN Active CLONIDINE HCL 0.2 MG ORAL TABS 1 TAB BY MOUTH EVERY 8 HOURS 12/29 CLONIDINE HCL 79398604109 No Longer Active Erin Garsia APRN Active MECLIZINE HCL 25 MG TAB one 4 times a day as needed for dizziness MECLIZINE HCL 21911780832 No Longer Active Erin Garsia APRN Active SPIRONOLACTONE 25 MG TAB 4 tablets by mouth daily SPIRONOLACTONE 66644797091 No Longer Active Erin Garsia APRN Active LEVAQUIN 500 MG TAB 1 tablet by mouth daily for 7 days LEVOFLOXACIN 98521236455 No Longer Active Erin Ady OENOLOGIST Active BACTRIM DS 800-160 MG TAB 1 tab by mouth twice daily TRIMETHOPRIM-SULFAMETHOXAZOLE 85886286670 No Longer Active Robbie Busby MD Active HYDRALAZINE HCL 50 MG ORAL TABS TWO BY MOUTH THREE TIMES DAILY HYDRALAZINE HCL 37125633397 No Longer Active Jillina Frazell OENOLOGIST Active HYDROCODONE-ACETAMINOPHEN 5-325 MG TABS 1 tab by mouth BID prn back pain 2013 HYDROCODONE-ACETAMINOPHEN 43950622320 No Longer Active Jillina Frazell OENOLOGIST Active HYDROCHLOROTHIAZIDE TABS Take one by mouth daily HYDROCHLOROTHIAZIDE TABS 24074597907 No Longer Active Jillina Frazell OENOLOGIST Active LAMISIL 125 MG ORAL PACK 1 TAB PO DAILY TERBINAFINE HCL 31222288068 No Longer Active Jillina Frazell OENOLOGIST Active TRILEPTAL 150 MG ORAL TABS 1 TAB PO Q HS OXCARBAZEPINE 87027140326 No Longer Active Jillina Frazell OENOLOGIST Active BETADINE 10 % EXT SOLN wash with solution to treat follicultis POVIDONE-IODINE 07271961843 No Longer Active Jillina Frazell OENOLOGIST Active NYSTATIN 691701 UNIT/ML M/T SUSP 5mL po QID x 10 days NYSTATIN 59058391766 No Longer Active Erin Garsia APRN Active PREDNISONE 20 MG TAB 1 tablet twice daily for 2 days, then 1 tablet once daily for 2 days PREDNISONE 75503459664 No Longer Active Robbie Busby MD Active CEFDINIR 300 MG ORAL CAPS Take 1 cap po bid x 10 days CEFDINIR 44504774979 No Longer Active Robbie Busby MD Active AMLODIPINE BESYLATE 10 MG TABS 1 tablet by mouth daily AMLODIPINE BESYLATE 38071442183 Active Robbie Busby MD Active CARVEDILOL 25 MG TABS 1 & 1/2 TAB po BID CARVEDILOL 93905574431 Active Robbie Busby MD Active VITAMIN D3 96392 UNIT CAPS 2 CAPS PO WEEKLY CHOLECALCIFEROL 58997801613 Active Erin Garsia APRN Active NEXIUM 40 MG CPDR 1 cap by mouth daily ESOMEPRAZOLE MAGNESIUM 62616006110 Active Robbie Busby MD Active PROTONIX 40 MG SOLR 1 po qday for acid reflux PANTOPRAZOLE SODIUM 24004125693 No Longer Active Gali Raida Active KEFLEX 500 MG CAP 1 po TID x 10 days CEPHALEXIN 53728056944 No Longer Active Robbie Busby MD Active FIORICET 50-300-40 MG ORAL CAPS take 1 tab po qday prn migraines. [id number] 56746109023 Active Robbie Busby MD Active TOPIRAMATE 50 MG ORAL TABS take 1 tab po BID for migraines. TOPIRAMATE 97914307884 Active Robbie Busby MD Active TEMAZEPAM 15 MG ORAL CAPS 1 TAB PO Q HS TEMAZEPAM 87128039445 Active Robbie Busby MD Active ALPRAZOLAM 2 MG ORAL TABS 1 TAB PO BID ALPRAZOLAM 15112690315 Active Robbie Busby MD Active FENOFIBRATE 145 MG TABS Take one by mouth daily FENOFIBRATE 94339403980 No Longer Active Robbie Busby MD Active SPIRONOLACTONE 50 MG TABS 1 tablet by mouth twice a day SPIRONOLACTONE 31836032786 No Longer Active Robbie Busby MD Active HYDRALAZINE HCL 25 MG TABS 1 tablet by mouth tid for hypertension HYDRALAZINE HCL 52746832318 No Longer Active Robbie Busby MD Active VIIBRYD 40 MG TABS take 1 tab po qday for depression. VILAZODONE HCL 02185802000 No Longer Active Robbie Busby MD Active TERBINAFINE HCL 250 MG TABS 1 tab po qday for foot infection 2014 TERBINAFINE HCL 00211381596 No Longer Active Robbie Busby MD Active GABAPENTIN 300 MG CAPS 1 po q hs for nerve pain GABAPENTIN 48131206177 Active Robbie Busby MD Active FLONASE 50 MCG/ACT SUSP 1 spray each nostril twice daily for allergies and runny nose FLUTICASONE PROPIONATE 53679328011 Active Robbie Busby MD Active CHERATUSSIN AC 100-10 MG/5ML ORAL SOLN 7.5 mL PO q 4-6 hrs PRN cough GUAIFENESIN-CODEINE 73578132167 No Longer Active Robbie Busby MD Active AZITHROMYCIN 250 MG ORAL TABS 2 tablets PO today---then, 1 tablet PO daily x 4 more days (and 1 optional refill) AZITHROMYCIN 83670468798 No Longer Active Robbie Busby MD Active NORVASC 10 MG TAB 1 tablet by mouth daily AMLODIPINE BESYLATE 29604773760 No Longer Active Alex ALVAREZ Active IMDUR 60 MG TAB CR take 1 tab po qday for blood pressure ISOSORBIDE MONONITRATE Active Robbie Busby MD Active ISOSORBIDE DINITRATE 30 MG TABS Take one by mouth daily ISOSORBIDE DINITRATE 61247246028 No Longer Active Robbie Busby MD Active VIIBRYD 40 MG TABS 1 TA B PO DAILY VILAZODONE HCL 75588104596 Active Robbie Busby MD Active LORATADINE 10 MG TABS 1 tablet by mouth daily for congestion and allergies. LORATADINE 62274785318 Active Robbie Busby MD Active ZITHROMAX 250 MG TAB 2 po today, then 1 po q days 2-5 AZITHROMYCIN 69401938804 No Longer Active Robbie Busby MD Active [id number] 0.3 MG/24HR PTWK apply 2 patches q week for HTN CLONIDINE HCL 81447206162 Active Robbie Busby MD Active NITROSTAT 0.4 MG SUBL PRN NITROGLYCERIN 86189122085 Active Robbie Busby MD Active DOXAZOSIN MESYLATE 4 MG TABS Take one by mouth daily DOXAZOSIN MESYLATE 72803607329 Active Robbie Busby MD Active TOPROL XL 200 MG [id number] Take one by mouth daily METOPROLOL SUCCINATE 25164182623 Active Robbie Busby MD Active VENLAFAXINE HCL ER 150 MG [id number] Take one by mouth daily VENLAFAXINE HCL 00826771049 Active Robbie Busby MD Active LIPITOR 40 MG TABS Take one by mouth daily ATORVASTATIN CALCIUM 94897102217 Active Robbie Busby MD Active ISOSORBIDE DINITRATE 30 MG TABS Take one by mouth daily ISOSORBIDE DINITRATE 30 MG TABS 279521 ISOSORBIDE DINITRATE Inactive NORVASC 10 MG TAB 1 tablet by mouth daily NORVASC 10 MG TAB 881552 AMLODIPINE BESYLATE Inactive AZITHROMYCIN 250 MG ORAL TABS 2 tablets PO today---then, 1 tablet PO daily x 4 more days (and 1 optional refill) AZITHROMYCIN 250 MG ORAL TABS 1289055 AZITHROMYCIN Inactive CHERATUSSIN AC 100-10 MG/5ML ORAL SOLN 7.5 mL PO q 4-6 hrs PRN cough CHERATUSSIN AC 100-10 MG/5ML ORAL SOLN 553197 GUAIFENESIN- CODEINE Inactive VIIBRYD 40 MG TABS take 1 tab po qday for depression. VIIBRYD 40 MG TABS VILAZODONE HCL Inactive HYDRALAZINE HCL 25 MG TABS 1 tablet by mouth tid for hypertension HYDRALAZINE HCL 25 MG TABS 159967 HYDRALAZINE HCL Inactive SPIRONOLACTONE 50 MG TABS 1 tablet by mouth twice a day SPIRONOLACTONE 50 MG TABS 541341 SPIRONOLACTONE Inactive FENOFIBRATE 145 MG TABS Take one by mouth daily FENOFIBRATE 145 MG TABS 678333 FENOFIBRATE Inactive PROTONIX 40 MG SOLR 1 po qday for acid reflux PROTONIX 40 MG SOLR 763302 PANTOPRAZOLE SODIUM Inactive CEFDINIR 300 MG ORAL CAPS Take 1 cap po bid x 10 days CEFDINIR 300 MG ORAL CAPS 580084 CEFDINIR Inactive PREDNISONE 20 MG TAB 1 tablet twice daily for 2 days, then 1 tablet once daily for 2 days PREDNISONE 20 MG TAB 537457 PREDNISONE Inactive NYSTATIN 859929 UNIT/ML M/T SUSP 5mL po QID x 10 days NYSTATIN 249845 UNIT/ML M/T SUSP 485240 NYSTATIN Inactive BETADINE 10 % EXT SOLN wash with solution to treat follicultis BETADINE 10 % EXT SOLN 0750843 POVIDONE-IODINE Inactive TRILEPTAL 150 MG ORAL TABS 1 TAB PO Q HS TRILEPTAL 150 MG ORAL TABS 558248 OXCARBAZEPINE Inactive LAMISIL 125 MG ORAL PACK 1 TAB PO DAILY LAMISIL 125 MG ORAL PACK TERBINAFINE HCL Inactive HYDROCHLOROTHIAZIDE TABS Take one by mouth daily HYDROCHLOROTHIAZIDE TABS HYDROCHLOROTHIAZIDE TABS Inactive HYDROCODONE-ACETAMINOPHEN 5-325 MG TABS 1 tab by mouth BID prn back pain 2013 HYDROCODONE-ACETAMINOPHEN 5-325 MG TABS 015033 HYDROCODONE -ACETAMINOPHEN Inactive HYDRALAZINE HCL 50 MG ORAL TABS TWO BY MOUTH THREE TIMES DAILY HYDRALAZINE HCL 50 MG ORAL TABS 585716 HYDRALAZINE HCL Inactive LEVAQUIN 500 MG TAB 1 tablet by mouth daily for 7 days LEVAQUIN 500 MG TAB 776617 LEVOFLOXACIN Inactive SPIRONOLACTONE 25 MG TAB 4 tablets by mouth daily SPIRONOLACTONE 25 MG TAB 519319 SPIRONOLACTONE Inactive MECLIZINE HCL 25 MG TAB one 4 times a day as needed for dizziness MECLIZINE HCL 25 MG TAB 567536 MECLIZINE HCL Inactive CLONIDINE HCL 0.2 MG ORAL TABS 1 TAB BY MOUTH EVERY 8 HOURS 12/29 CLONIDINE HCL 0.2 MG ORAL TABS 876556 CLONIDINE HCL Inactive ZITHROMAX 250 MG TAB 2 po today, then 1 po q days 2-5 ZITHROMAX 250 MG TAB 9336519 AZITHROMYCIN Inactive TERBINAFINE HCL 250 MG TABS 1 tab po qday for foot infection 2014 TERBINAFINE HCL 250 MG TABS 190857 TERBINAFINE HCL Inactive KEFLEX 500 MG CAP 1 po TID x 10 days KEFLEX 500 MG CAP 531094 CEPHALEXIN Inactive BACTRIM DS 800-160 MG TAB 1 tab by mouth twice daily BACTRIM DS 800-160 MG TAB 927215 TRIMETHOPRIM-SULFAMETHOXAZOLE Inactive PREDNISONE 20 MG TAB take 3 tabs daily for 3 days, 2 tabs daily for 3 days, 1 tab daily for 3 days, 1/2 tab daily for 4 days PREDNISONE 20 MG TAB 876547 PREDNISONE Inactive Advance Directives Directive Description Start [...] % 11.0-15.0 platelet count 185 THOUSAND/UL 10*3/mm3 317-839 9067/04/14 mean platelet volume 10.9 fL 7.5-12.5 Lab Report: LIPID PANEL, TSH/899, T4, FREE/866 - Chemistry cholesterol, serum 220 mg/dL 265-241 8554/04/14 HDL cholesterol, serum 30 mg/dL > OR=40 [...] mg/dL Encounters Code Encounter Date Provider Facility CPT-15323 Level 4 Est. Patient 11:56:16 CDT Erin Garsia [facility] CPT-02464 Level 3 Est. Patient 17:48:02 CDT Robbie Busby MD [facility] CPT-19179 Level 4 Est. Patient 12:00:49 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 Rober Rodríguez [facility] CPT-78575 Level 3 Est. Patient 09:16:37 CDT Robbie Busby MD [facility] CPT-78570 Level 3 Est. Patient 19:38:43 CDT Robbie Busby MD [facility] CPT-03530 Level 3 Est. Patient 11:53:38 CDT Robbie Busby MD [facility] CPT-08277 Level 4 Est. Patient 12:52:22 CDT Rober Rodríguez [facility] CPT-64406 Level 4 Est. Patient 22:55:17 CDT Robbie Busby MD [facility] CPT-55883 Level 3 Est. Patient 12:38:24 CDT Desmond Diaz DO [facility] CPT-07005 Level 4 Est. 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 Patient 14:50:10 CDT Robbie Busby MD [facility] CPT-85421 Level 4 Est. Patient 23:30:43 CDT Robbie Busby MD [facility] CPT-24663 Level 4 Est. Patient 10:30:43 CDT Robbie Busby MD [facility] CPT-83351 Level 3 Est. Patient 17:08:12 CDT Alex Shaw [facility] CPT-22398 Level 4 Est. Patient 17:51:38 CDT Robbie Busby MD [facility] CPT-23586 Level 4 Est. Patient 14:00:21 CDT Robbie Busby MD [facility] CPT-17862 Level 4 Est. Patient 12:46:48 CDT Robbie Busby MD [facility] CPT-11739 Level 4 Est. Patient 13:34:33 CDT Robbie Busby MD [facility] CPT-94878 Level 4 Est. Patient 16:58:28 CDT Robbie Busby MD [facility] CPT-76381 Level 3 Est. Patient 19:36:53 CDT Alex Shaw [facility] CPT-67390 Level 3 Est. Patient 12:58:15 CDT Robbie Busby MD [facility] Procedures Code Procedure Name Date Entry Date Standard Description CPT-06685 Ribs unilateral 2V - XRAY USE ONLY 12:10:11 CDT CPT-42086 First Vx - Ix admin for Medicare patients 16:32:53 CDT CPT-26496 Boostrix Intramuscular Suspension 5-2.5-18.5 16:32:53 CDT CPT-57743 TB Skin Test 11:42:28 CDT CPT-80943 Tdap 7yrs or > 11:42:28 CDT CPT-J0696 Rocephin 1000 mg (Ceftriaxone) 17:43:43 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 CPT-J1040 Depo Medrol 80 mg (Methyl Prednisolone Acetate) 17:43: 43 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 CPT-J1100 Decadron 8mg (Dexamethasone) 17:43:42 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 CPT-75766 Abx/Therapy Injection 17:43:42 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 CPT-88948 Abx/Therapy Injection 17:43:42 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 CPT-J1040 Depo Medrol 80 mg (Methyl Prednisolone Acetate) 09:43: 34 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 CPT-J1100 Decadron 8mg (Dexamethasone) 09:43:34 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 CPT-J0696 Rocephin 1gm Inj Solr 09:43:34 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 CPT-65588 Wound Culture - LAB USE ONLY 14:00:21 CDT CPT-I/D I/D Abscess 09:16:37 CDT CPT-65979 Venipuncture Draw Fee 15:20:23 CDT CPT-67816 Microalbumin - LAB USE ONLY 16:02:19 CDT CPT-96740 CBC - LAB USE ONLY 16:02:19 CDT CPT-35930 Venipuncture Draw Fee 16:02:19 CDT CPT-G0438 Initial Annual Wellness Exam 08:10:28 CDT CPT-61771 Venipuncture Draw Fee 13:07:17 CDT CPT-G0008 Administration of Influenza Virus Vaccine 16:09:59 CDT CPT-66884 Fluzone Quadrivalent Intramuscular Suspension 0.5 ML 16: 09:59 CDT CPT-24251 Spec Collection and Handling Fee 15:05:50 CDT
--- OUTSIDE RECORDS SUMMARY | 2018-04-18 12:39 | XMS REPORT | Clinical Summary ---
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 Desmond Diaz DO Other malignant secondary hypertension Tachycardia 785.0 Active Rober Rodríguez FENCE INSTALLER HELPER Tachycardia, unspecified Insect bite, infected 919.5 Resolved Desmond Diaz DO Insect bite, nonvenomous, of other, multiple, and unspecified sites, infected Abscess, skin 682.9 Resolved Desmond Diaz DO Cellulitis and abscess of unspecified sites URI 465.9 Resolved Desmond Diaz DO Acute upper respiratory infections of unspecified site Hypertension 401.9 Active Rober Rodríguez FENCE INSTALLER HELPER Unspecified essential hypertension Sinusitis - acute 461.9 [...] Hypogonadism, low testosterone 257.2 Active Erin Mai FENCE INSTALLER HELPER Other testicular hypofunction Low back pain, chronic [...] 37.0-37.9, adult Sinusitis ICD-461.9 Inactive 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 2017 Low back pain, acute ICD-724.2 Inactive 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 Low back pain, chronic ICD-724.2 Inactive 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 Bronchitis, acute ICD-466.0 Inactive 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 Onychomycosis, toenails ICD-110.1 Inactive 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 Dizziness ICD-780.4 Inactive 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 2017 Folliculitis ICD-704.8 Inactive 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 Pharyngitis-Acute ICD-462 Inactive 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 Fatigue ICD-780.79 Inactive 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 09/20 Hypertension, secondary, malignant ICD-405.09 Inactive 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 Insect bite, infected ICD-919.5 Inactive 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 Abscess, skin ICD-682.9 Inactive 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 URI ICD-465.9 Inactive 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 Sinusitis - acute ICD-461.9 Inactive 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 Acute confusion ICD-293.0 Inactive 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 Headache ICD-784.0 Inactive Emily Solisnae CISSE 09/20 [...] HOUR 1 po q day ISOSORBIDE MONONITRATE 78626309686 Active Emma Hernandez Active METOPROLOL SUCCINATE ER 200 MG ORAL TABLET EXTENDED RELEASE 24 HOUR take 1 tab po qday for high blood pressure and rapid pulse METOPROLOL SUCCINATE 62158767562 Active Robbie Busby MD Active [id number]-OXQ-3 0.3 MG/24HR TRANSDERMAL PATCH WEEKLY apply 2 patches q week for HTN CLONIDINE HCL 68441687606 No Longer Active Robbie Busby MD Active IMDUR 60 MG ORAL TABLET EXTENDED RELEASE 24 HOUR take 1 tab po qday for blood pressure ISOSORBIDE MONONITRATE 66652657634 No Longer Active Robbie Busby MD Active TEMAZEPAM 15 MG ORAL CAPSULE 1 TAB PO Q HS TEMAZEPAM 96905519282 No Longer Active Robbie Busby MD Active TOPIRAMATE 50 MG ORAL TABLET 1 po BID for migraines TOPIRAMATE 49175714757 No Longer Active Robbie Busby MD Active CYCLOBENZAPRINE HCL 10 MG ORAL TABLET 1 tablet by mouth three times daily as needed for muscle spasm/pain CYCLOBENZAPRINE HCL 07128079817 No Longer Active Robbie Busby MD Active TOPROL XL 200 MG ORAL TABLET EXTENDED RELEASE 24 HOUR Take one by mouth daily METOPROLOL SUCCINATE 10591975433 No Longer Active Robbie Busby MD Active METFORMIN HCL 500 MG ORAL TABLET 1 tablet by mouth daily for diabetes type 2 METFORMIN HCL 05910957933 Active Robbie Busby MD Active SINGULAIR 10 MG ORAL TABLET 1 po qday for allergies. MONTELUKAST SODIUM 42305183109 No Longer Active Robbie Busby MD Active PREDNISONE 20 MG ORAL TABLET two tabs by mouth today, then one tab by mouth days two and three PREDNISONE 61494142384 No Longer Active Robbie Busby MD Active AZITHROMYCIN 250 MG ORAL TABLET 2 po qd x 1 day, then 1 po qd x 4 days 09/20 AZITHROMYCIN 03591242909 No Longer Active Desmond Diaz DO Active TOPIRAMATE 50 MG ORAL TABLET take 1 tab po BID for migraines. TOPIRAMATE 44521478544 No Longer Active Desmond Diaz DO Active CYCLOBENZAPRINE HCL 10 MG ORAL TABLET 1 po TID PRN muscle spasm/pain for 10 days CYCLOBENZAPRINE HCL 51061430391 No Longer Active Desmond Diaz DO Active GUAIFENESIN ER 600 MG ORAL TABLET EXTENDED RELEASE 12 HOUR 1 tab po q am 2016 GUAIFENESIN 21514611277 No Longer Active Robbie Busby MD Active DIVALPROEX SODIUM ER 500 MG ORAL TABLET EXTENDED RELEASE 24 HOUR Once daily DIVALPROEX SODIUM 46709080455 Active Robbie Busby MD Active DEPO-TESTOSTERONE 200 MG/ML INTRAMUSCULAR SOLUTION 1 IM Injections every 2 weeks for low testosterone TESTOSTERONE CYPIONATE 57651567517 Active Zulema Blank LPN Active FLUTICASONE PROPIONATE 50 MCG/ACT NASAL SUSPENSION 2 sprays per nostril bid for 1 week, then 1 spray bid FLUTICASONE PROPIONATE 50083615371 Active Rober Rodríguez APRN Active HYDRALAZINE HCL 25 MG ORAL TABLET Take 1 tab BID. HYDRALAZINE HCL 19327251205 Active Rober Rodríguez APRN Active VITAMIN D3 30937 UNIT ORAL TABLET 2 po weekly CHOLECALCIFEROL 29047939440 Active Robbie Busby MD Active OXYCODONE HCL ER 10 MG ORAL TABLET ER 12 HOUR ABUSE-DETERRENT 1 tab po 3 times qd. OXYCODONE HCL 71919782850 Active Robbie Busby MD Active NITROSTAT 0.4 MG SUBLINGUAL TABLET SUBLINGUAL PRN NITROGLYCERIN 90705024076 No Longer Active Robbie Busby MD Active LORATADINE 10 MG ORAL TABLET 1 tablet by mouth daily for congestion and allergies. LORATADINE 48558272880 No Longer Active Robbie Busby MD Active FLONASE 50 MCG/ACT NASAL SUSPENSION 1 spray each nostril twice daily for allergies and runny nose FLUTICASONE PROPIONATE 48834967754 No Longer Active Robbie Busby MD Active FIORICET 50-300-40 MG ORAL CAPSULE take 1 tab po qday prn migraines. XEMWUGEEEV-EICH-ZXXCHIEE 29831861690 No Longer Active Robbie Busby MD Active VITAMIN D3 60433 UNIT ORAL CAPSULE 2 CAPS PO WEEKLY CHOLECALCIFEROL 91333972999 No Longer Active Robbie Busby MD Active CYCLOBENZAPRINE HCL 10 MG ORAL TABLET 1 tablet by mouth three times daily as needed for muscle spasm/pain for 10 days CYCLOBENZAPRINE HCL 03901525092 No Longer Active Robbie Busby MD Active PREDNISONE 20 MG ORAL TABLET take 3 tabs daily for 3 days, 2 tabs daily for 3 days, 1 tab daily for 3 days, 1/2 tab daily for 4 days PREDNISONE 39973561506 No Longer Active Erin Mai APRN Active CLONIDINE HCL 0.2 MG ORAL TABLET 1 TAB BY MOUTH EVERY 8 HOURS CLONIDINE HCL 54457173278 No Longer Active Erin Mai APRN Active MECLIZINE HCL 25 MG ORAL TABLET one 4 times a day as needed for dizziness MECLIZINE HCL 16284825204 No Longer Active Erin Mai APRN Active SPIRONOLACTONE 25 MG ORAL TABLET 4 tablets by mouth daily SPIRONOLACTONE 25422591065 No Longer Active Erin Riverall FENCE INSTALLER HELPER Active LEVAQUIN 500 MG ORAL TABLET 1 tablet by mouth daily for 7 days LEVOFLOXACIN 97140459201 No Longer Active Erin Mai FENCE INSTALLER HELPER Active BACTRIM DS 800-160 MG ORAL TABLET 1 tab by mouth twice daily 2015 TRIMETHOPRIM-SULFAMETHOXAZOLE 72464380941 No Longer Active Robbie Busby MD Active HYDRALAZINE HCL 50 MG ORAL TABLET TWO BY MOUTH THREE TIMES DAILY HYDRALAZINE HCL 67065235376 No Longer Active Andrellina Frazell FENCE INSTALLER HELPER Active HYDROCODONE-ACETAMINOPHEN 5-325 MG ORAL TABLET 1 tab by mouth BID prn back pain HYDROCODONE-ACETAMINOPHEN 13339170747 No Longer Active Jillina Frazell FENCE INSTALLER HELPER Active HYDROCHLOROTHIAZIDE TABLET Take one by mouth daily HYDROCHLOROTHIAZIDE TABS 29083710693 No Longer Active Jillina Frazell FENCE INSTALLER HELPER Active LAMISIL 125 MG ORAL PACKET 1 TAB PO DAILY TERBINAFINE HCL 61629452402 No Longer Active Jillina Frazell FENCE INSTALLER HELPER Active TRILEPTAL 150 MG ORAL TABLET 1 TAB PO Q HS OXCARBAZEPINE 40947006134 No Longer Active Jillina Frazell FENCE INSTALLER HELPER Active BETADINE 10 % EXTERNAL SOLUTION wash with solution to treat follicultis 07/29 POVIDONE-IODINE 01591674606 No Longer Active Jillina Frazell FENCE INSTALLER HELPER Active NYSTATIN 721276 UNIT/ML MOUTH/THROAT SUSPENSION 5mL po QID x 10 days NYSTATIN 86640448892 No Longer Active Erin Mai FENCE INSTALLER HELPER Active PREDNISONE 20 MG ORAL TABLET 1 tablet twice daily for 2 days, then 1 tablet once daily for 2 days PREDNISONE 58775590625 No Longer Active Robbie Busby MD Active CEFDINIR 300 MG ORAL CAPSULE Take 1 cap po bid x 10 days CEFDINIR 73431442449 No Longer Active Robbie Busby MD Active AMLODIPINE BESYLATE 10 MG ORAL TABLET 1 tablet by mouth daily AMLODIPINE BESYLATE 52622150300 Active Robbie Busby MD Active CARVEDILOL 25 MG ORAL TABLET 1 & 1/2 TAB po BID CARVEDILOL 47207170584 Active Robbie Busby MD Active NEXIUM 40 MG ORAL CAPSULE DELAYED RELEASE 1 cap by mouth daily ESOMEPRAZOLE MAGNESIUM 45056159001 Active Robbie Busby MD Active PROTONIX 40 MG INTRAVENOUS SOLUTION RECONSTITUTED 1 po qday for acid reflux PANTOPRAZOLE SODIUM 15447045869 No Longer Active Galileonila Negro Active KEFLEX 500 MG ORAL CAPSULE 1 po TID x 10 days CEPHALEXIN 70100501171 No Longer Active Robbie Busby MD Active ALPRAZOLAM 2 MG ORAL TABLET 1 TAB PO BID ALPRAZOLAM 89735679713 Active Robbie Busby MD Active FENOFIBRATE 145 MG ORAL TABLET Take one by mouth daily FENOFIBRATE 64621737685 No Longer Active Robbie Busby MD Active SPIRONOLACTONE 50 MG ORAL TABLET 1 tablet by mouth twice a day SPIRONOLACTONE 33846479867 No Longer Active Robbie Busby MD Active HYDRALAZINE HCL 25 MG ORAL TABLET 1 tablet by mouth tid for hypertension 2013 HYDRALAZINE HCL 16926222535 No Longer Active Robbie Busby MD Active VIIBRYD 40 MG ORAL TABLET take 1 tab po qday for depression. 2014 VILAZODONE HCL 62496854621 No Longer Active Robbie Busby MD Active TERBINAFINE HCL 250 MG ORAL TABLET 1 tab po qday for foot infection TERBINAFINE HCL 78188890778 No Longer Active Robbie Busby MD Active GABAPENTIN 300 MG ORAL CAPSULE 1 po q hs for nerve pain GABAPENTIN 14327247897 Active Robbie Busby MD Active CHERATUSSIN AC 100-10 MG/5ML ORAL SOLUTION 7.5 mL PO q 4-6 hrs PRN cough 2014 GUAIFENESIN-CODEINE 62580243224 No Longer Active Robbie Busby MD Active AZITHROMYCIN 250 MG ORAL TABLET 2 tablets PO today---then, 1 tablet PO daily x 4 more days (and 1 optional refill) AZITHROMYCIN 30648304645 No Longer Active Robbie Busby MD Active NORVASC 10 MG ORAL TABLET 1 tablet by mouth daily AMLODIPINE BESYLATE 49281865175 No Longer Active Alex ALVAREZ Active ISOSORBIDE DINITRATE 30 MG ORAL TABLET Take one by mouth daily ISOSORBIDE DINITRATE 02743030109 No Longer Active Robbie Busby MD Active VIIBRYD 40 MG ORAL TABLET 1 TA B PO DAILY VILAZODONE HCL 94071106778 Active Robbie Busby MD Active ZITHROMAX 250 MG ORAL TABLET 2 po today, then 1 po q days 2-5 AZITHROMYCIN 77465648905 No Longer Active Robbie Busby MD Active DOXAZOSIN MESYLATE 4 MG ORAL TABLET Take one by mouth daily DOXAZOSIN MESYLATE 63329932423 Active Robbie Busby MD Active VENLAFAXINE HCL ER 150 MG ORAL TABLET EXTENDED RELEASE 24 HOUR Take one by mouth daily VENLAFAXINE HCL 92027304055 Active Robbie Busby MD Active LIPITOR 40 MG ORAL TABLET Take one by mouth daily ATORVASTATIN CALCIUM 87612778163 Active Robbie Busby MD Active ISOSORBIDE DINITRATE 30 MG ORAL TABLET Take one by mouth daily ISOSORBIDE DINITRATE 30 MG ORAL TABLET 875842 ISOSORBIDE DINITRATE Inactive NORVASC 10 MG ORAL TABLET 1 tablet by mouth daily NORVASC 10 MG ORAL TABLET 772529 AMLODIPINE BESYLATE Inactive AZITHROMYCIN 250 MG ORAL TABLET 2 tablets PO today---then, 1 tablet PO daily x 4 more days (and 1 optional refill) AZITHROMYCIN 250 MG ORAL TABLET 134444 AZITHROMYCIN Inactive CHERATUSSIN AC 100-10 MG/5ML ORAL SOLUTION 7.5 mL PO q 4-6 hrs PRN cough 2014 CHERATUSSIN AC 100-10 MG/5ML ORAL SOLUTION 555057 GUAIFENESIN-CODEINE Inactive VIIBRYD 40 MG ORAL TABLET take 1 tab po qday for depression. 2014 VIIBRYD 40 MG ORAL TABLET VILAZODONE HCL Inactive HYDRALAZINE HCL 25 MG ORAL TABLET 1 tablet by mouth tid for hypertension 2013 HYDRALAZINE HCL 25 MG ORAL TABLET 300314 HYDRALAZINE HCL Inactive SPIRONOLACTONE 50 MG ORAL TABLET 1 tablet by mouth twice a day SPIRONOLACTONE 50 MG ORAL TABLET 997599 SPIRONOLACTONE Inactive FENOFIBRATE 145 MG ORAL TABLET Take one by mouth daily FENOFIBRATE 145 MG ORAL TABLET 019297 FENOFIBRATE Inactive PROTONIX 40 MG INTRAVENOUS SOLUTION RECONSTITUTED 1 po qday for acid reflux PROTONIX 40 MG INTRAVENOUS SOLUTION RECONSTITUTED 153219 PANTOPRAZOLE SODIUM Inactive CEFDINIR 300 MG ORAL CAPSULE Take 1 cap po bid x 10 days CEFDINIR 300 MG ORAL CAPSULE 146750 CEFDINIR Inactive PREDNISONE 20 MG ORAL TABLET 1 tablet twice daily for 2 days, then 1 tablet once daily for 2 days PREDNISONE 20 MG ORAL TABLET 807564 PREDNISONE Inactive NYSTATIN 662482 UNIT/ML MOUTH/THROAT SUSPENSION 5mL po QID x 10 days NYSTATIN 422691 UNIT/ML MOUTH/THROAT SUSPENSION 431878 NYSTATIN Inactive BETADINE 10 % EXTERNAL SOLUTION wash with solution to treat follicultis 07/29 BETADINE 10 % EXTERNAL SOLUTION 9323816 POVIDONE-IODINE Inactive TRILEPTAL 150 MG ORAL TABLET 1 TAB PO Q HS TRILEPTAL 150 MG ORAL TABLET 271027 OXCARBAZEPINE Inactive LAMISIL 125 MG ORAL PACKET 1 TAB PO DAILY LAMISIL 125 MG ORAL PACKET TERBINAFINE HCL Inactive HYDROCHLOROTHIAZIDE TABLET Take one by mouth daily HYDROCHLOROTHIAZIDE TABLET HYDROCHLOROTHIAZIDE TABS Inactive HYDROCODONE-ACETAMINOPHEN 5-325 MG ORAL TABLET 1 tab by mouth BID prn back pain HYDROCODONE-ACETAMINOPHEN 5-325 MG ORAL TABLET 196466 HYDROCODONE-ACETAMINOPHEN Inactive HYDRALAZINE HCL 50 MG ORAL TABLET TWO BY MOUTH THREE TIMES DAILY HYDRALAZINE HCL 50 MG ORAL TABLET 567864 HYDRALAZINE HCL Inactive LEVAQUIN 500 MG ORAL TABLET 1 tablet by mouth daily for 7 days LEVAQUIN 500 MG ORAL TABLET 690132 LEVOFLOXACIN Inactive SPIRONOLACTONE 25 MG ORAL TABLET 4 tablets by mouth daily SPIRONOLACTONE 25 MG ORAL TABLET 067997 SPIRONOLACTONE Inactive MECLIZINE HCL 25 MG ORAL TABLET one 4 times a day as needed for dizziness MECLIZINE HCL 25 MG ORAL TABLET 466468 MECLIZINE HCL Inactive CLONIDINE HCL 0.2 MG ORAL TABLET 1 TAB BY MOUTH EVERY 8 HOURS CLONIDINE HCL 0.2 MG ORAL TABLET 933037 CLONIDINE HCL Inactive CYCLOBENZAPRINE HCL 10 MG ORAL TABLET 1 tablet by mouth three times daily as needed for muscle spasm/pain for 10 days CYCLOBENZAPRINE HCL 10 MG ORAL TABLET 081456 CYCLOBENZAPRINE HCL Inactive VITAMIN D3 80392 UNIT ORAL CAPSULE 2 CAPS PO WEEKLY VITAMIN D3 29551 UNIT ORAL CAPSULE CHOLECALCIFEROL Inactive FIORICET 50-300-40 MG ORAL CAPSULE take 1 tab po qday prn migraines. FIORICET 50-300-40 MG ORAL CAPSULE 083991 BUTALBITAL-APAP- CAFFEINE Inactive FLONASE 50 MCG/ACT NASAL SUSPENSION 1 spray each nostril twice daily for allergies and runny nose FLONASE 50 MCG/ACT NASAL SUSPENSION 3219365 FLUTICASONE PROPIONATE Inactive LORATADINE 10 MG ORAL TABLET 1 tablet by mouth daily for congestion and allergies. LORATADINE 10 MG ORAL TABLET 117617 LORATADINE Inactive NITROSTAT 0.4 MG SUBLINGUAL TABLET SUBLINGUAL PRN NITROSTAT 0.4 MG SUBLINGUAL TABLET SUBLINGUAL 790062 NITROGLYCERIN Inactive GUAIFENESIN ER 600 MG ORAL TABLET EXTENDED RELEASE 12 HOUR 1 tab po q am 2016 GUAIFENESIN ER 600 MG ORAL TABLET EXTENDED RELEASE 12 HOUR GUAIFENESIN Inactive CYCLOBENZAPRINE HCL 10 MG ORAL TABLET 1 po TID PRN muscle spasm/pain for 10 days CYCLOBENZAPRINE HCL 10 MG ORAL TABLET 456238 CYCLOBENZAPRINE HCL Inactive TOPIRAMATE 50 MG ORAL TABLET take 1 tab po BID for migraines. TOPIRAMATE 50 MG ORAL TABLET 415076 TOPIRAMATE Inactive PREDNISONE 20 MG ORAL TABLET two tabs by mouth today, then one tab by mouth days two and three PREDNISONE 20 MG ORAL TABLET 109058 PREDNISONE Inactive TOPROL XL 200 MG ORAL TABLET EXTENDED RELEASE 24 HOUR Take one by mouth daily TOPROL XL 200 MG ORAL TABLET EXTENDED RELEASE 24 HOUR METOPROLOL SUCCINATE Inactive CYCLOBENZAPRINE HCL 10 MG ORAL TABLET 1 tablet by mouth three times daily as needed for muscle spasm/pain CYCLOBENZAPRINE HCL 10 MG ORAL TABLET 342222 CYCLOBENZAPRINE HCL Inactive TOPIRAMATE 50 MG ORAL TABLET 1 po BID for migraines TOPIRAMATE 50 MG ORAL TABLET 314926 TOPIRAMATE Inactive TEMAZEPAM 15 MG ORAL CAPSULE 1 TAB PO Q HS TEMAZEPAM 15 MG ORAL CAPSULE 430839 TEMAZEPAM Inactive IMDUR 60 MG ORAL TABLET EXTENDED RELEASE 24 HOUR take 1 tab po qday for blood pressure IMDUR 60 MG ORAL TABLET EXTENDED RELEASE 24 HOUR ISOSORBIDE MONONITRATE Inactive [id number] 0.3 MG/24HR TRANSDERMAL PATCH WEEKLY apply 2 patches q week for HTN [id number] 0.3 MG/24HR TRANSDERMAL PATCH WEEKLY 967451 CLONIDINE HCL Inactive ZITHROMAX 250 MG ORAL TABLET 2 po today, then 1 po q days 2-5 ZITHROMAX 250 MG ORAL TABLET 806594 AZITHROMYCIN Inactive TERBINAFINE HCL 250 MG ORAL TABLET 1 tab po qday for foot infection TERBINAFINE HCL 250 MG ORAL TABLET 685079 TERBINAFINE HCL Inactive KEFLEX 500 MG ORAL CAPSULE 1 po TID x 10 days KEFLEX 500 MG ORAL CAPSULE 277789 CEPHALEXIN Inactive BACTRIM DS 800-160 MG ORAL TABLET 1 tab by mouth twice daily 2015 BACTRIM DS 800-160 MG ORAL TABLET 794490 TRIMETHOPRIM- SULFAMETHOXAZOLE Inactive PREDNISONE 20 MG ORAL TABLET take 3 tabs daily for 3 days, 2 tabs daily for 3 days, 1 tab daily for 3 days, 1/2 tab daily for 4 days PREDNISONE 20 MG ORAL TABLET 907677 PREDNISONE Inactive AZITHROMYCIN 250 MG ORAL TABLET 2 po qd x 1 day, then 1 po qd x 4 days 09/20 AZITHROMYCIN 250 MG ORAL TABLET 194887 AZITHROMYCIN Inactive SINGULAIR 10 MG ORAL TABLET 1 po qday for allergies. SINGULAIR 10 MG ORAL TABLET 125312 MONTELUKAST SODIUM Inactive Advance Directives Directive Description [...] AUTO - Chemistry sodium, serum 142 mmol/L 330-610 9950/07/17 carbon dioxide, venous blood 28.2 mmol/L 21.0-32.0 [...] % 11.0-15.0 platelet count 185 THOUSAND/UL 10*3/mm3 839-285 5364/04/14 mean platelet volume 10.9 fL 7.5-12.5 Lab Report: Comp. Metabolic Panel - Chemistry sodium, serum 141 mmol/L 748-820 0974/02/13 carbon dioxide, venous blood 23.9 mmol/L 21.0-32.0 [...] 6.9 % 4.3-6.0 sodium, serum 139 mmol/L 061-677 0583/01/04 potassium, serum 3.9 mmol/L 3.5-5.2 chloride, serum 103 mmol/L 98-107 carbon dioxide, venous blood 26.9 mmol/L 21.0-32.0 blood glucose 106 mg/dL 65-110 calcium, serum 9.0 mg/dL 8.5-10.1 urea nitrogen, blood 20 mg/dL 7-18 creatinine, serum 1.46 mg/dL 0.60-1.30 Lab Report: LIPID PANEL, TSH/899, T4, FREE/866 - Chemistry cholesterol, serum 220 mg/dL 994-749 9194/04/14 HDL cholesterol, serum 30 mg/dL > OR=40 [...] 1.80 ng/mL 0.00-4.00 Lab Report: VITAMIN D, 25-HYDROXY/31436 - Chemistry vitamin D 25-hydroxy, serum 25 ng/mL 30-100 Office Visit: Confusion, dizziness after fall - Basic LDL target level 130 mg/dL Office Visit: Confusion, dizziness after fall - Chemistry HDL cholesterol, serum, target level 40 mg/dL triglyceride, target level 150 mg/dL cholesterol, target level 200 mg/dL Encounters Code Encounter Date Provider Facility CPT-58043 Level 4 Est. Patient 09:50:01 COLOR MATCHER Robbie Busby MD [facility] CPT-38438 Level 4 Est. Patient 09:42:08 COLOR MATCHER Robbie Busby MD [facility] CPT-66128 Level 4 Est. Patient 13:07:39 COLOR MATCHER Robbie Busby MD [facility] CPT-37288 Level 4 Est. Patient 15:23:44 COLOR MATCHER Desmond Diaz DO [facility] CPT-39120 Level 3 Est. Patient 15:40:49 CDT Robbie Busby MD [facility] CPT-07123 Level 4 Est. Patient 15:18:19 CDT Robbie Busby MD [facility] CPT-95793 Level 3 Est. Patient 09:00:37 CDT Rober Rodríguez [facility] CPT-05828 Level 3 Est. Patient 16:07:10 CDT Robbie Busby MD [facility] CPT-63872 Level 4 Est. Patient 11:56:16 CDT Erin Mai [facility] CPT-09559 Level 3 Est. Patient 17:48:02 CDT Robbie Busby MD [facility] CPT-69012 Level 4 Est. Patient 12:00:49 COLOR MATCHER Rober Rodríguez [facility] CPT-74808 Level 3 Est. Patient 09:16:37 CDT Robbie Busby MD [facility]-16467 Level 3 Est. Patient 19:38:43 CDT Robbie Busby MD [facility] CPT-66522 Level 3 Est. Patient 11:53:38 CDT Robbie Busby MD [facility] CPT-68866 Level 4 Est. Patient 12:52:22 CDT Rober Rodríguez [facility] CPT-02719 Level 4 Est. Patient 22:55:17 CDT Robbie Busby MD [facility]-55685 Level 3 Est. Patient 12:38:24 CDT Desmond Diaz DO [facility] CPT-71980 Level 4 Est. Patient 11:25:03 COLOR MATCHER Robbie Busby MD [facility] CPT-40481 Level 4 Est. Patient 14:50:10 CDT Robbie Busby MD [facility] CPT-28318 Level 4 Est. Patient 23:30:43 CDT Robbie Busby MD [facility] CPT-57622 Level 4 Est. Patient 10:30:43 CDT Robbie Busby MD [facility] CPT-82061 Level 3 Est. Patient 17:08:12 CDT Alex ALVAREZ [facility] CPT-00890 Level 4 Est. Patient 17:51:38 CDT Robbie Busby MD [facility] CPT-78870 Level 4 Est. Patient 14:00:21 CDT Robbie Busby MD [facility] CPT-64996 Level 4 Est. Patient 12:46:48 CDT Robbie Busby MD [facility] CPT-55729 Level 4 Est. Patient 13:34:33 CDT Robbie Busby MD [facility] CPT-10753 Level 4 Est. Patient 16:58:28 CDT Robbie Busby MD [facility] CPT-86001 Level 3 Est. Patient 19:36:53 CDT Alex ALVAREZ [facility] CPT-05980 Level 3 Est. Patient 12:58:15 CDT Robbie Busby MD [facility] Procedures Code Procedure Name Date Entry Date Standard Description CPT-J1071 Depo Testosterone 200mg 08:56:46 CDT CPT-48738 Abx/Therapy Injection 08:56:45 CDT CPT-J1071 Depo Testosterone 200mg 08:26:27 CDT CPT-83943 Abx/Therapy Injection 08:26:27 CDT CPT-J1071 Depo Testosterone 200mg 10:27:10 CDT CPT-80081 Abx/Therapy Injection 10:27:10 CDT CPT-J1071 Depo Testosterone 200mg 16:10:29 COLOR MATCHER CPT-15468 Abx/Therapy Injection 16:10:29 COLOR MATCHER CPT-J1071 Depo Testosterone 200mg 16:13:47 COLOR MATCHER CPT-37934 Abx/Therapy Injection 16:13:46 COLOR MATCHER CPT-J1071 Depo Testosterone 200mg 15:33:58 COLOR MATCHER CPT-17432 Abx/Therapy Injection 15:33:58 COLOR MATCHER CPT-J1071 Depo Testosterone 200mg 09:38:36 COLOR MATCHER CPT-29678 Abx/Therapy Injection 09:38:36 COLOR MATCHER CPT-J1071 Depo Testosterone 200mg 10:22:56 COLOR MATCHER CPT-57333 Abx/Therapy Injection 10:22:56 COLOR MATCHER CPT-J1071 Depo Testosterone 200mg 15:40:23 CDT CPT-33744 Abx/Therapy Injection 15:40:23 CDT CPT-J1071 Depo Testosterone 200mg 14:20:43 CDT CPT-63962 Abx/Therapy Injection 14:20:43 CDT CPT-J1071 Depo Testosterone 200mg 14:17:22 CDT CPT-64449 Abx/Therapy Injection 14:17:22 CDT CPT-J1071 Depo Testosterone 200mg 09:03:53 CDT CPT-48812 Abx/Therapy Injection 09:03:53 CDT CPT-G0439 [facility] Annual Wellness Exam 16:47:44 CDT CPT-J1071 Depo Testosterone 200mg 09:06:28 CDT CPT-82909 Abx/Therapy Injection 09:06:28 CDT CPT-J1071 Depo Testosterone 200mg 08:30:01 CDT CPT-84521 Abx/Therapy Injection 08:30:01 CDT CPT-J1071 Depo Testosterone 200mg 08:24:00 CDT CPT-16854 Abx/Therapy Injection 08:24:00 CDT CPT-33944 Venipuncture Draw Fee 14:39:06 CDT CPT-42504 Ribs unilateral 2V - XRAY USE ONLY 12:10:11 CDT CPT-73227 First Vx - Ix admin for Medicare patients 16:32:53 CDT CPT-20981 Boostrix Intramuscular Suspension 5-2.5-18.5 16:32:53 CDT CPT-58074 TB Skin Test 11:42:28 CDT CPT-55639 Tdap 7yrs or > 11:42:28 CDT CPT-J0696 Rocephin 1000 mg (Ceftriaxone) 17:43:43 COLOR MATCHER CPT-J1040 Depo Medrol 80 mg (Methyl Prednisolone Acetate) 17:43: 43 COLOR MATCHER CPT-J1100 Decadron 8mg (Dexamethasone) 17:43:42 COLOR MATCHER CPT-24548 Abx/Therapy Injection 17:43:42 COLOR MATCHER CPT-28595 Abx/Therapy Injection 17:43:42 COLOR MATCHER CPT-J1040 Depo Medrol 80 mg (Methyl Prednisolone Acetate) 09:43: 34 COLOR MATCHER CPT-J1100 Decadron 8mg (Dexamethasone) 09:43:34 COLOR MATCHER CPT-J0696 Rocephin 1gm Inj Solr 09:43:34 COLOR MATCHER CPT-22827 Wound Culture - LAB USE ONLY 14:00:21 CDT CPT-I/D I/D Abscess 09:16:37 CDT CPT-05020 Venipuncture Draw Fee 15:20:23 CDT CPT-48153 Microalbumin - LAB USE ONLY 16:02:19 CDT CPT-59635 CBC - LAB USE ONLY 16:02:19 CDT CPT-19811 Venipuncture Draw Fee 16:02:19 CDT CPT-G0438 Initial Annual Wellness Exam 08:10:28 CDT CPT-15749 Venipuncture Draw Fee 13:07:17 CDT CPT-G0008 Administration of Influenza Virus Vaccine 16:09:59 CDT CPT-48314 Fluzone Quadrivalent Intramuscular Suspension 0.5 ML 16: 09:59 CDT CPT-86090 Spec Collection and Handling Fee 15:05:50 CDT
--- OUTSIDE RECORDS SUMMARY | 2018-04-18 12:40 | XMS REPORT | Clinical Summary ---
Author Author Admin, [facility] Organization [facility] Address Unknown Phone Unavailable Allergies, Adverse [...] chronic, stage III 585.3 Active Ca Garcia [facility] Chronic kidney disease, Stage III (moderate) Medication List Medication Instructions Start Date Stop Date Generic Name NDC Status Provider Patient Instruction NYSTATIN 816117 UNIT/ML M/T SUSP 5mL po QID x 10 days NYSTATIN 93746344946 Active Gali Negro Active AMLODIPINE BESYLATE 10 MG TABS 1 tablet by mouth daily AMLODIPINE BESYLATE 32928729000 Active Robbie Busby MD Active CARVEDILOL 25 MG TABS 1 & 1/2 TAB po BID CARVEDILOL 57354477647 Active Robbie Busby MD Active VITAMIN D3 15271 UNIT CAPS 2 CAPS PO WEEKLY CHOLECALCIFEROL 26347495620 Active Vanessa August Active CEFDINIR 300 MG ORAL CAPS Take 1 cap po bid x 10 days CEFDINIR 20467588393 Active Jackie Junior MA Active PREDNISONE 20 MG TAB 1 tablet twice daily for 2 days, then 1 tablet once daily for 2 days PREDNISONE 15545502655 Active Desmond Diaz DO Active NEXIUM 40 MG CPDR 1 cap by mouth daily ESOMEPRAZOLE MAGNESIUM 97006400338 Active Gali Negro Active PROTONIX 40 MG SOLR 1 po qday for acid reflux PANTOPRAZOLE SODIUM 02165116506 No Longer Active Gali Negro Active BETADINE 10 % EXT SOLN wash with solution to treat follicultis POVIDONE-IODINE 02756792698 Active Robbie Busby MD Active KEFLEX 500 MG CAP 1 po TID x 10 days CEPHALEXIN 05281348151 No Longer Active Robbie Busby MD Active FIORICET 50-300-40 MG ORAL CAPS take 1 tab po qday prn migraines. [id number] 21701471743 Active Robbie Busby MD Active TOPIRAMATE 50 MG ORAL TABS take 1 tab po BID for migraines. TOPIRAMATE 98521715050 Active Robbie Busby MD Active HYDRALAZINE HCL 50 MG ORAL TABS TWO BY MOUTH THREE TIMES DAILY HYDRALAZINE HCL 16219547914 Active Robbie Busby MD Active MECLIZINE HCL 25 MG TAB one 4 times a day as needed for dizziness MECLIZINE HCL 19452350220 Active Robbie Busby MD Active TRILEPTAL 150 MG ORAL TABS 1 TAB PO Q HS OXCARBAZEPINE 54239675606 Active Robbie Busby MD Active TEMAZEPAM 15 MG ORAL CAPS 1 TAB PO Q HS TEMAZEPAM 18622355897 Active Robbie Busby MD Active ALPRAZOLAM 2 MG ORAL TABS 1 TAB PO BID ALPRAZOLAM 21894228548 Active Robbie Busby MD Active FENOFIBRATE 145 MG TABS Take one by mouth daily FENOFIBRATE 29917237543 No Longer Active Robbie Busby MD Active LAMISIL 125 MG ORAL PACK 1 TAB PO DAILY TERBINAFINE HCL 90432473786 Active Robbie Busby MD Active SPIRONOLACTONE 50 MG TABS 1 tablet by mouth twice a day SPIRONOLACTONE 71961315704 No Longer Active Robbie Busby MD Active HYDRALAZINE HCL 25 MG TABS 1 tablet by mouth tid for hypertension HYDRALAZINE HCL 77166463571 No Longer Active Robbie Busby MD Active VIIBRYD 40 MG TABS take 1 tab po qday for depression. VILAZODONE HCL 77818475199 No Longer Active Robbie Busby MD Active TERBINAFINE HCL 250 MG TABS 1 tab po qday for foot infection 2014 TERBINAFINE HCL 75595244493 No Longer Active Robbie Busby MD Active GABAPENTIN 300 MG CAPS 1 po q hs for nerve pain GABAPENTIN 78572275938 Active Robbie Busby MD Active FLONASE 50 MCG/ACT SUSP 1 spray each nostril twice daily for allergies and runny nose FLUTICASONE PROPIONATE 52588123855 Active Robbie Busby MD Active CHERATUSSIN AC 100-10 MG/5ML ORAL SOLN 7.5 mL PO q 4-6 hrs PRN cough GUAIFENESIN-CODEINE 59640028086 No Longer Active Robbie Busby MD Active AZITHROMYCIN 250 MG ORAL TABS 2 tablets PO today---then, 1 tablet PO daily x 4 more days (and 1 optional refill) AZITHROMYCIN 66133162079 No Longer Active Robbie Busby MD Active CLONIDINE HCL 0.2 MG ORAL TABS 1 TAB BY MOUTH EVERY 8 HOURS CLONIDINE HCL 96489473503 Active Robbie Busby MD Active HYDROCHLOROTHIAZIDE TABS Take one by mouth daily HYDROCHLOROTHIAZIDE TABS 30665548836 Active Alex ALVAREZ Active NORVASC 10 MG TAB 1 tablet by mouth daily AMLODIPINE BESYLATE 72814585070 No Longer Active Alex ALVAREZ Active IMDUR 60 MG TAB CR take 1 tab po qday for blood pressure ISOSORBIDE MONONITRATE Active Robbie Busby MD Active ISOSORBIDE DINITRATE 30 MG TABS Take one by mouth daily ISOSORBIDE DINITRATE 73492084634 No Longer Active Robbie Busby MD Active VIIBRYD 40 MG TABS 1 TA B PO DAILY VILAZODONE HCL 76934970744 Active Erin Garsia APRN Active LORATADINE 10 MG TABS 1 tablet by mouth daily for congestion and allergies. LORATADINE 15331122720 Active Robbie Busby MD Active ZITHROMAX 250 MG TAB 2 po today, then 1 po q days 2-5 AZITHROMYCIN 61192069387 No Longer Active Robbie Busby MD Active HYDROCODONE-ACETAMINOPHEN 5-325 MG TABS 1 tab by mouth BID prn back pain 2013 HYDROCODONE-ACETAMINOPHEN 13707486091 Active Robbie Busby MD Active [id number] 0.3 MG/24HR PTWK apply 2 patches q week for HTN CLONIDINE HCL 22571407845 Active Robbie Busby MD Active NITROSTAT 0.4 MG SUBL PRN NITROGLYCERIN 07302607284 Active Robbie Busby MD Active DOXAZOSIN MESYLATE 4 MG TABS Take one by mouth daily DOXAZOSIN MESYLATE 11294039571 Active Robbie Busby MD Active TOPROL XL 200 MG [id number] Take one by mouth daily METOPROLOL SUCCINATE 53362074749 Active Robbie Busby MD Active VENLAFAXINE HCL ER 150 MG [id number] Take one by mouth daily VENLAFAXINE HCL 22946053167 Active Robbie Busby MD Active LIPITOR 40 MG TABS Take one by mouth daily ATORVASTATIN CALCIUM 62376686108 Active Robbie Busby MD Active ISOSORBIDE DINITRATE 30 MG TABS Take one by mouth daily ISOSORBIDE DINITRATE 30 MG TABS 481464 ISOSORBIDE DINITRATE Inactive NORVASC 10 MG TAB 1 tablet by mouth daily NORVASC 10 MG TAB 533903 AMLODIPINE BESYLATE Inactive AZITHROMYCIN 250 MG ORAL TABS 2 tablets PO today---then, 1 tablet PO daily x 4 more days (and 1 optional refill) AZITHROMYCIN 250 MG ORAL TABS 1600371 AZITHROMYCIN Inactive CHERATUSSIN AC 100-10 MG/5ML ORAL SOLN 7.5 mL PO q 4-6 hrs PRN cough CHERATUSSIN AC 100-10 MG/5ML ORAL SOLN 655518 GUAIFENESIN- CODEINE Inactive VIIBRYD 40 MG TABS take 1 tab po qday for depression. VIIBRYD 40 MG TABS VILAZODONE HCL Inactive HYDRALAZINE HCL 25 MG TABS 1 tablet by mouth tid for hypertension HYDRALAZINE HCL 25 MG TABS 467877 HYDRALAZINE HCL Inactive SPIRONOLACTONE 50 MG TABS 1 tablet by mouth twice a day SPIRONOLACTONE 50 MG TABS 629861 SPIRONOLACTONE Inactive FENOFIBRATE 145 MG TABS Take one by mouth daily FENOFIBRATE 145 MG TABS 957678 FENOFIBRATE Inactive PROTONIX 40 MG SOLR 1 po qday for acid reflux PROTONIX 40 MG SOLR 026701 PANTOPRAZOLE SODIUM Inactive ZITHROMAX 250 MG TAB 2 po today, then 1 po q days 2-5 ZITHROMAX 250 MG TAB 8371661 AZITHROMYCIN Inactive TERBINAFINE HCL 250 MG TABS 1 tab po qday for foot infection 2014 TERBINAFINE HCL 250 MG TABS 617459 TERBINAFINE HCL Inactive KEFLEX 500 MG CAP 1 po TID x 10 days KEFLEX 500 MG CAP 846272 CEPHALEXIN Inactive Vital Signs Date Name Value [...] Acid - Chemistry sodium, serum 139 mmol/L 642-120 6815/04/22 carbon dioxide, venous blood 29.4 mmol/L 21.0-32.0 [...] PANEL - Chemistry cholesterol, serum 211 mg/dL 965-633 0537/08/31 triglyceride, serum, fasting 429 mg/dL 30-200 HDL [...] to Follow Negative Lab Report: VITAMIN D, 25-HYDROXY/71268 - Chemistry vitamin D 25-hydroxy, serum 23 ng/mL 30-100 Encounters Code Encounter Date Provider Facility CPT-61130 Level 3 Est. Patient 12:38:24 CDT Desmond Diaz DO [facility] CPT-08696 Level 4 Est. Patient 11:25:03 [employer] Robbie Busby MD [facility] CPT-89246 Level 4 Est. Patient 14:50:10 CDT Robbie Busby MD [facility] CPT-11667 Level 4 Est. Patient 23:30:43 CDT Robbie Busby MD [facility] CPT-93279 Level 4 Est. Patient 10:30:43 CDT Robbie Busby MD [facility] CPT-89557 Level 3 Est. Patient 17:08:12 CDT Alex ALVAREZ [facility] CPT-46731 Level 4 Est. Patient 17:51:38 CDT Robbie Busby MD [facility] CPT-84622 Level 4 Est. Patient 14:00:21 CDT Robbie Busby MD [facility] CPT-89610 Level 4 Est. Patient 12:46:48 CDT Robbie Busby MD [facility] CPT-71210 Level 4 Est. Patient 13:34:33 CDT Robbie Busby MD [facility] CPT-87605 Level 4 Est. Patient 16:58:28 CDT Robbie Busby MD [facility] CPT-13481 Level 3 Est. Patient 19:36:53 CDT Alex ALVAREZ [facility] CPT-43660 Level 3 Est. Patient 12:58:15 CDT Robbie Busby MD [facility] Procedures Code Procedure Name Date Entry Date Standard Description CPT-02658 Venipuncture Draw Fee 13:07:17 CDT CPT-G0008 Administration of Influenza Virus Vaccine 16:09:59 CDT CPT-83999 Fluzone Quadrivalent Intramuscular Suspension 0.5 ML 16: 09:59 CDT CPT-42596 Spec Collection and Handling Fee 15:05:50 CDT
--- OUTSIDE RECORDS SUMMARY | 2018-04-18 12:41 | XMS REPORT | Clinical Summary ---
Author Author Admin, AKUA Organization [facility] Address Unknown Phone Unavailable Allergies, Adverse Reactions, [...] 2 weeks for low testosterone TESTOSTERONE CYPIONATE 88032338591 Active Zulema Blank LPN Active CYCLOBENZAPRINE HCL 10 MG ORAL TABS 1 po TID PRN muscle spasm/pain for 10 days CYCLOBENZAPRINE HCL 13050359031 Active JONATHAN Moncada Active GUAIFENESIN 600 MG [id number] 1 tab po q am GUAIFENESIN 34316795974 Active Rober Rodríguez DIRECTOR EDUCATIONAL RADIO Active FLUTICASONE PROPIONATE 50 MCG/ACT SUSP 2 sprays per nostril bid for 1 week, then 1 spray bid FLUTICASONE PROPIONATE 32742006330 Active Jillina Frazelariana GONZALEZN Active HYDRALAZINE HCL 25 MG ORAL TABS Take 1 tab BID. HYDRALAZINE HCL 31700722623 Active Jillina Anne GONZALEZN Active VITAMIN D3 44392 UNIT ORAL TABS 2 po weekly CHOLECALCIFEROL 56440135608 Active Robbie Busby MD Active OXYCODONE HCL ER 10 MG ORAL T12A 1 tab po 3 times qd. OXYCODONE HCL 21357618339 Active Robbie Busby MD Active NITROSTAT 0.4 MG SUBL PRN NITROGLYCERIN 00738758987 No Longer Active Robbie Busby MD Active LORATADINE 10 MG TABS 1 tablet by mouth daily for congestion and allergies. LORATADINE 90786859446 No Longer Active Robbie Busby MD Active FLONASE 50 MCG/ACT SUSP 1 spray each nostril twice daily for allergies and runny nose FLUTICASONE PROPIONATE 36061820586 No Longer Active Robbie Busby MD Active FIORICET 50-300-40 MG ORAL CAPS take 1 tab po qday prn migraines. [id number] 86540315083 No Longer Active Robbie Busby MD Active VITAMIN D3 21754 UNIT CAPS 2 CAPS PO WEEKLY CHOLECALCIFEROL 87662724410 No Longer Active Robbie Busby MD Active CYCLOBENZAPRINE HCL 10 MG TABS 1 tablet by mouth three times daily as needed for muscle spasm/pain for 10 days CYCLOBENZAPRINE HCL 13651367533 No Longer Active Robbie Busby MD Active PREDNISONE 20 MG TAB take 3 tabs daily for 3 days, 2 tabs daily for 3 days, 1 tab daily for 3 days, 1/2 tab daily for 4 days PREDNISONE 39782141337 No Longer Active Erin Garsia APRN Active CLONIDINE HCL 0.2 MG ORAL TABS 1 TAB BY MOUTH EVERY 8 HOURS 12/29 CLONIDINE HCL 71168333512 No Longer Active Erin Garsia APRN Active MECLIZINE HCL 25 MG TAB one 4 times a day as needed for dizziness MECLIZINE HCL 65180548474 No Longer Active Erin Garsia APRN Active SPIRONOLACTONE 25 MG TAB 4 tablets by mouth daily SPIRONOLACTONE 92080467720 No Longer Active Erin Garsia APRN Active LEVAQUIN 500 MG TAB 1 tablet by mouth daily for 7 days LEVOFLOXACIN 88692679668 No Longer Active Erin Garsia APRN Active BACTRIM DS 800-160 MG TAB 1 tab by mouth twice daily TRIMETHOPRIM-SULFAMETHOXAZOLE 14966438539 No Longer Active Robbie Bsuby MD Active HYDRALAZINE HCL 50 MG ORAL TABS TWO BY MOUTH THREE TIMES DAILY HYDRALAZINE HCL 75691393457 No Longer Active Jillina Frazell DIRECTOR EDUCATIONAL RADIO Active HYDROCODONE-ACETAMINOPHEN 5-325 MG TABS 1 tab by mouth BID prn back pain 2013 HYDROCODONE-ACETAMINOPHEN 52386757512 No Longer Active Jillina Frazell DIRECTOR EDUCATIONAL RADIO Active HYDROCHLOROTHIAZIDE TABS Take one by mouth daily HYDROCHLOROTHIAZIDE TABS 01794915411 No Longer Active Jillina Frazell DIRECTOR EDUCATIONAL RADIO Active LAMISIL 125 MG ORAL PACK 1 TAB PO DAILY TERBINAFINE HCL 39219806080 No Longer Active Jillina Frazell DIRECTOR EDUCATIONAL RADIO Active TRILEPTAL 150 MG ORAL TABS 1 TAB PO Q HS OXCARBAZEPINE 59576156647 No Longer Active Jillina Frazell DIRECTOR EDUCATIONAL RADIO Active BETADINE 10 % EXT SOLN wash with solution to treat follicultis POVIDONE-IODINE 17764106328 No Longer Active Jillina Frazell DIRECTOR EDUCATIONAL RADIO Active NYSTATIN 888269 UNIT/ML M/T SUSP 5mL po QID x 10 days NYSTATIN 79419974067 No Longer Active Erin Ady DIRECTOR EDUCATIONAL RADIO Active PREDNISONE 20 MG TAB 1 tablet twice daily for 2 days, then 1 tablet once daily for 2 days PREDNISONE 19712731911 No Longer Active Robbie Busby MD Active CEFDINIR 300 MG ORAL CAPS Take 1 cap po bid x 10 days CEFDINIR 50533432618 No Longer Active Robbie Busby MD Active AMLODIPINE BESYLATE 10 MG TABS 1 tablet by mouth daily AMLODIPINE BESYLATE 41701817986 Active Robbie Busby MD Active CARVEDILOL 25 MG TABS 1 & 1/2 TAB po BID CARVEDILOL 64702019322 Active Robbie Busby MD Active NEXIUM 40 MG CPDR 1 cap by mouth daily ESOMEPRAZOLE MAGNESIUM 77147415510 Active Robbie Busby MD Active PROTONIX 40 MG SOLR 1 po qday for acid reflux PANTOPRAZOLE SODIUM 11855870308 No Longer Active Gali Raida Active KEFLEX 500 MG CAP 1 po TID x 10 days CEPHALEXIN 47048394104 No Longer Active Robbie Busby MD Active TOPIRAMATE 50 MG ORAL TABS take 1 tab po BID for migraines. TOPIRAMATE 94833173167 Active Robbie Busby MD Active TEMAZEPAM 15 MG ORAL CAPS 1 TAB PO Q HS TEMAZEPAM 51119636181 Active Robbie Busby MD Active ALPRAZOLAM 2 MG ORAL TABS 1 TAB PO BID ALPRAZOLAM 55285072144 Active Robbie Busby MD Active FENOFIBRATE 145 MG TABS Take one by mouth daily FENOFIBRATE 55801453896 No Longer Active Robbie Busby MD Active SPIRONOLACTONE 50 MG TABS 1 tablet by mouth twice a day SPIRONOLACTONE 12426594989 No Longer Active Robbie Busby MD Active HYDRALAZINE HCL 25 MG TABS 1 tablet by mouth tid for hypertension HYDRALAZINE HCL 31426409635 No Longer Active Robbie Busby MD Active VIIBRYD 40 MG TABS take 1 tab po qday for depression. VILAZODONE HCL 32186040477 No Longer Active Robbie Busby MD Active TERBINAFINE HCL 250 MG TABS 1 tab po qday for foot infection 2014 TERBINAFINE HCL 06893167266 No Longer Active Robbie Busby MD Active GABAPENTIN 300 MG CAPS 1 po q hs for nerve pain GABAPENTIN 97569851417 Active Robbie Busby MD Active CHERATUSSIN AC 100-10 MG/5ML ORAL SOLN 7.5 mL PO q 4-6 hrs PRN cough GUAIFENESIN-CODEINE 54847574652 No Longer Active Robbie Busby MD Active AZITHROMYCIN 250 MG ORAL TABS 2 tablets PO today---then, 1 tablet PO daily x 4 more days (and 1 optional refill) AZITHROMYCIN 37711634928 No Longer Active Robbie Busby MD Active NORVASC 10 MG TAB 1 tablet by mouth daily AMLODIPINE BESYLATE 81959875577 No Longer Active Alex ALVAREZ Active IMDUR 60 MG TAB CR take 1 tab po qday for blood pressure ISOSORBIDE MONONITRATE Active Robbie Busby MD Active ISOSORBIDE DINITRATE 30 MG TABS Take one by mouth daily ISOSORBIDE DINITRATE 76224830314 No Longer Active Robbie Busby MD Active VIIBRYD 40 MG TABS 1 TA B PO DAILY VILAZODONE HCL 91110923511 Active Robbie Busby MD Active ZITHROMAX 250 MG TAB 2 po today, then 1 po q days 2-5 AZITHROMYCIN 94666444928 No Longer Active Robbie Busby MD Active [id number]-EAF-2 0.3 MG/24HR PTWK apply 2 patches q week for HTN CLONIDINE HCL 69979689344 Active Robbie Busby MD Active DOXAZOSIN MESYLATE 4 MG TABS Take one by mouth daily DOXAZOSIN MESYLATE 16544677346 Active Robbie Busby MD Active TOPROL XL 200 MG [id number]-GSQ Take one by mouth daily METOPROLOL SUCCINATE 59467913231 Active Robbie Busby MD Active VENLAFAXINE HCL ER 150 MG [id number]-CVT Take one by mouth daily VENLAFAXINE HCL 06885600014 Active Robbie Busby MD Active LIPITOR 40 MG TABS Take one by mouth daily ATORVASTATIN CALCIUM 76696321496 Active Robbie Busby MD Active ISOSORBIDE DINITRATE 30 MG TABS Take one by mouth daily ISOSORBIDE DINITRATE 30 MG TABS 108481 ISOSORBIDE DINITRATE Inactive NORVASC 10 MG TAB 1 tablet by mouth daily NORVASC 10 MG TAB 735586 AMLODIPINE BESYLATE Inactive AZITHROMYCIN 250 MG ORAL TABS 2 tablets PO today---then, 1 tablet PO daily x 4 more days (and 1 optional refill) AZITHROMYCIN 250 MG ORAL TABS 5307737 AZITHROMYCIN Inactive CHERATUSSIN AC 100-10 MG/5ML ORAL SOLN 7.5 mL PO q 4-6 hrs PRN cough CHERATUSSIN AC 100-10 MG/5ML ORAL SOLN 594189 GUAIFENESIN- CODEINE Inactive VIIBRYD 40 MG TABS take 1 tab po qday for depression. VIIBRYD 40 MG TABS VILAZODONE HCL Inactive HYDRALAZINE HCL 25 MG TABS 1 tablet by mouth tid for hypertension HYDRALAZINE HCL 25 MG TABS 905113 HYDRALAZINE HCL Inactive SPIRONOLACTONE 50 MG TABS 1 tablet by mouth twice a day SPIRONOLACTONE 50 MG TABS 393432 SPIRONOLACTONE Inactive FENOFIBRATE 145 MG TABS Take one by mouth daily FENOFIBRATE 145 MG TABS 783744 FENOFIBRATE Inactive PROTONIX 40 MG SOLR 1 po qday for acid reflux PROTONIX 40 MG SOLR 177842 PANTOPRAZOLE SODIUM Inactive CEFDINIR 300 MG ORAL CAPS Take 1 cap po bid x 10 days CEFDINIR 300 MG ORAL CAPS 244768 CEFDINIR Inactive PREDNISONE 20 MG TAB 1 tablet twice daily for 2 days, then 1 tablet once daily for 2 days PREDNISONE 20 MG TAB 155069 PREDNISONE Inactive NYSTATIN 354315 UNIT/ML M/T SUSP 5mL po QID x 10 days NYSTATIN 924706 UNIT/ML M/T SUSP 238130 NYSTATIN Inactive BETADINE 10 % EXT SOLN wash with solution to treat follicultis BETADINE 10 % EXT SOLN 7616202 POVIDONE-IODINE Inactive TRILEPTAL 150 MG ORAL TABS 1 TAB PO Q HS TRILEPTAL 150 MG ORAL TABS 702216 OXCARBAZEPINE Inactive LAMISIL 125 MG ORAL PACK 1 TAB PO DAILY LAMISIL 125 MG ORAL PACK TERBINAFINE HCL Inactive HYDROCHLOROTHIAZIDE TABS Take one by mouth daily HYDROCHLOROTHIAZIDE TABS HYDROCHLOROTHIAZIDE TABS Inactive HYDROCODONE-ACETAMINOPHEN 5-325 MG TABS 1 tab by mouth BID prn back pain 2013 HYDROCODONE-ACETAMINOPHEN 5-325 MG TABS 388251 HYDROCODONE -ACETAMINOPHEN Inactive HYDRALAZINE HCL 50 MG ORAL TABS TWO BY MOUTH THREE TIMES DAILY HYDRALAZINE HCL 50 MG ORAL TABS 404010 HYDRALAZINE HCL Inactive LEVAQUIN 500 MG TAB 1 tablet by mouth daily for 7 days LEVAQUIN 500 MG TAB 203891 LEVOFLOXACIN Inactive SPIRONOLACTONE 25 MG TAB 4 tablets by mouth daily SPIRONOLACTONE 25 MG TAB 627738 SPIRONOLACTONE Inactive MECLIZINE HCL 25 MG TAB one 4 times a day as needed for dizziness MECLIZINE HCL 25 MG TAB 719380 MECLIZINE HCL Inactive CLONIDINE HCL 0.2 MG ORAL TABS 1 TAB BY MOUTH EVERY 8 HOURS 12/29 CLONIDINE HCL 0.2 MG ORAL TABS 777115 CLONIDINE HCL Inactive CYCLOBENZAPRINE HCL 10 MG TABS 1 tablet by mouth three times daily as needed for muscle spasm/pain for 10 days CYCLOBENZAPRINE HCL 10 MG TABS 272877 CYCLOBENZAPRINE HCL Inactive VITAMIN D3 54004 UNIT CAPS 2 CAPS PO WEEKLY VITAMIN D3 13861 UNIT CAPS CHOLECALCIFEROL Inactive FIORICET 50-300-40 MG ORAL CAPS take 1 tab po qday prn migraines. FIORICET 50-300-40 MG ORAL CAPS 945240 [id number] Inactive FLONASE 50 MCG/ACT SUSP 1 spray each nostril twice daily for allergies and runny nose FLONASE 50 MCG/ACT SUSP 5811504 FLUTICASONE PROPIONATE Inactive LORATADINE 10 MG TABS 1 tablet by mouth daily for congestion and allergies. LORATADINE 10 MG TABS 572977 LORATADINE Inactive NITROSTAT 0.4 MG SUBL PRN NITROSTAT 0.4 MG SUBL 248529 NITROGLYCERIN Inactive ZITHROMAX 250 MG TAB 2 po today, then 1 po q days 2-5 ZITHROMAX 250 MG TAB 6673855 AZITHROMYCIN Inactive TERBINAFINE HCL 250 MG TABS 1 tab po qday for foot infection 2014 TERBINAFINE HCL 250 MG TABS 304626 TERBINAFINE HCL Inactive KEFLEX 500 MG CAP 1 po TID x 10 days KEFLEX 500 MG CAP 024422 CEPHALEXIN Inactive BACTRIM DS 800-160 MG TAB 1 tab by mouth twice daily BACTRIM DS 800-160 MG TAB 205547 TRIMETHOPRIM-SULFAMETHOXAZOLE Inactive PREDNISONE 20 MG TAB take 3 tabs daily for 3 days, 2 tabs daily for 3 days, 1 tab daily for 3 days, 1/2 tab daily for 4 days PREDNISONE 20 MG TAB 744658 PREDNISONE Inactive Advance Directives Directive Description Start [...] AUTO - Chemistry sodium, serum 142 mmol/L 881-454 7769/07/17 carbon dioxide, venous blood 28.2 mmol/L 21.0-32.0 [...] % 11.0-15.0 platelet count 185 THOUSAND/UL 10*3/mm3 303-211 4615/04/14 mean platelet volume 10.9 fL 7.5-12.5 Lab Report: LIPID PANEL, TSH/899, T4, FREE/866 - Chemistry cholesterol, serum 220 mg/dL 163-892 7455/04/14 HDL cholesterol, serum 30 mg/dL > OR=40 [...] 1.80 ng/mL 0.00-4.00 Lab Report: VITAMIN D, 25-HYDROXY/52981 - Chemistry vitamin D 25-hydroxy, serum 25 ng/mL 30-100 Office Visit: Confusion, dizziness after fall - Basic LDL target level 130 mg/dL Office Visit: Confusion, dizziness after fall - Chemistry HDL cholesterol, serum, target level 40 mg/dL triglyceride, target level 150 mg/dL cholesterol, target level 200 mg/dL Encounters Code Encounter Date Provider Facility CPT-02239 Level 4 Est. Patient 15:18:19 CDT Robbie Busby MD [facility] CPT-79023 Level 3 Est. Patient 09:00:37 CDT Rober Rodríguez [facility] [place] CPT-13211 Level 3 Est. Patient 16:07:10 CDT Robbie Busby MD [facility] CPT-87938 Level 4 Est. Patient 11:56:16 CDT Erin Garsia [facility] [place] CPT-40876 Level 3 Est. Patient 17:48:02 CDT Robbie Busby MD [facility] CPT-24229 Level 4 Est. Patient 12:00:49 TEMPORARY STAFF ACCOUNTANT Rober Rodríguez [facility] [place] CPT-11725 Level 3 Est. Patient 09:16:37 CDT Robbie Busby MD [facility] CPT-14392 Level 3 Est. Patient 19:38:43 CDT Robbie Busby MD [facility] CPT-51681 Level 3 Est. Patient 11:53:38 CDT Robbie Busby MD [facility] CPT-59140 Level 4 Est. Patient 12:52:22 CDT Rober Rodríguez [facility] [place] CPT-87798 Level 4 Est. Patient 22:55:17 CDT Robbie Busby MD [facility] CPT-45252 Level 3 Est. Patient 12:38:24 CDT Desmond Diaz DO [facility] CPT-69387 Level 4 Est. Patient 11:25:03 TEMPORARY STAFF ACCOUNTANT Robbie Busby MD [facility] CPT-53262 Level 4 Est. Patient 14:50:10 CDT Robbie Busby MD [facility] CPT-39563 Level 4 Est. Patient 23:30:43 CDT Robbie Busby MD [facility] CPT-24481 Level 4 Est. Patient 10:30:43 CDT Robbie Busby MD [facility] CPT-14354 Level 3 Est. Patient 17:08:12 CDT Alex Shaw [facility] CPT-10749 Level 4 Est. Patient 17:51:38 CDT Robbie Busby MD [facility] CPT-43666 Level 4 Est. Patient 14:00:21 CDT Robbie Busby MD [facility] CPT-46100 Level 4 Est. Patient 12:46:48 CDT Robbie Busby MD [facility] CPT-55954 Level 4 Est. Patient 13:34:33 CDT Robbie Busby MD [facility] CPT-49909 Level 4 Est. Patient 16:58:28 CDT Robbie Busby MD [facility] CPT-98018 Level 3 Est. Patient 19:36:53 CDT Alex Shaw [facility] CPT-17558 Level 3 Est. Patient 12:58:15 CDT Robbie Busby MD [facility] Procedures Code Procedure Name Date Entry Date Standard Description CPT-J1071 Depo Testosterone 200mg 08:30:01 CDT CPT-85537 Abx/Therapy Injection 08:30:01 CDT CPT-J1071 Depo Testosterone 200mg 08:24:00 CDT CPT-92199 Abx/Therapy Injection 08:24:00 CDT CPT-95193 Venipuncture Draw Fee 14:39:06 CDT CPT-06756 Ribs unilateral 2V - XRAY USE ONLY 12:10:11 CDT CPT-90779 First Vx - Ix admin for Medicare patients 16:32:53 CDT CPT-89578 Boostrix Intramuscular Suspension 5-2.5-18.5 16:32:53 CDT CPT-40535 TB Skin Test 11:42:28 CDT CPT-80797 Tdap 7yrs or > 11:42:28 CDT CPT-J0696 Rocephin 1000 mg (Ceftriaxone) 17:43:43 TEMPORARY STAFF ACCOUNTANT CPT-J1040 Depo Medrol 80 mg (Methyl Prednisolone Acetate) 17:43: 43 TEMPORARY STAFF ACCOUNTANT CPT-J1100 Decadron 8mg (Dexamethasone) 17:43:42 TEMPORARY STAFF ACCOUNTANT CPT-72745 Abx/Therapy Injection 17:43:42 TEMPORARY STAFF ACCOUNTANT CPT-59200 Abx/Therapy Injection 17:43:42 TEMPORARY STAFF ACCOUNTANT CPT-J1040 Depo Medrol 80 mg (Methyl Prednisolone Acetate) 09:43: 34 TEMPORARY STAFF ACCOUNTANT CPT-J1100 Decadron 8mg (Dexamethasone) 09:43:34 TEMPORARY STAFF ACCOUNTANT CPT-J0696 Rocephin 1gm Inj Solr 09:43:34 TEMPORARY STAFF ACCOUNTANT CPT-67037 Wound Culture - LAB USE ONLY 14:00:21 CDT CPT-I/D I/D Abscess 09:16:37 CDT CPT-64464 Venipuncture Draw Fee 15:20:23 CDT CPT-52315 Microalbumin - LAB USE ONLY 16:02:19 CDT CPT-65850 CBC - LAB USE ONLY 16:02:19 CDT CPT-26501 Venipuncture Draw Fee 16:02:19 CDT CPT-G0438 Initial Annual Wellness Exam 08:10:28 CDT CPT-11204 Venipuncture Draw Fee 13:07:17 CDT CPT-G0008 Administration of Influenza Virus Vaccine 16:09:59 CDT CPT-73882 Fluzone Quadrivalent Intramuscular Suspension 0.5 ML 16: 09:59 CDT CPT-96589 Spec Collection and Handling Fee 15:05:50 CDT
--- OUTSIDE RECORDS SUMMARY | 2018-04-18 12:42 | XMS REPORT | Clinical Summary ---
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 Unspecified essential hypertension Sinusitis - acute [...] Status Provider Patient Instruction GUAIFENESIN 600 MG [id number] 1 tab po q am GUAIFENESIN [id number] No Longer Active Robbie Busby MD Active DIVALPROEX SODIUM ER 500 MG ORAL TABLET EXTENDED RELEASE 24 HOUR Once daily DIVALPROEX SODIUM 05143714243 Active Robbie Busby MD Active DEPO-TESTOSTERONE 200 MG/ML IM SOLN 1 IM Injections every 2 weeks for low testosterone TESTOSTERONE CYPIONATE 73657710219 Active Zulema Blank LPN Active CYCLOBENZAPRINE HCL 10 MG ORAL TABS 1 po TID PRN muscle spasm/pain for 10 days CYCLOBENZAPRINE HCL 75830117132 Active JONATHAN Moncada Active FLUTICASONE PROPIONATE 50 MCG/ACT SUSP 2 sprays per nostril bid for 1 week, then 1 spray bid FLUTICASONE PROPIONATE 90618874559 Active Jillina Anne [employer]OR Active HYDRALAZINE HCL 25 MG ORAL TABS Take 1 tab BID. HYDRALAZINE HCL 92431002690 Active Agnieszkaina Anne [employer]OR Active VITAMIN D3 62585 UNIT ORAL TABS 2 po weekly CHOLECALCIFEROL 17119851899 Active Robbie Busby MD Active OXYCODONE HCL ER 10 MG ORAL T12A 1 tab po 3 times qd. OXYCODONE HCL 07881207062 Active Robbie Busby MD Active NITROSTAT 0.4 MG SUBL PRN NITROGLYCERIN 58057519544 No Longer Active Robbie Busby MD Active LORATADINE 10 MG TABS 1 tablet by mouth daily for congestion and allergies. LORATADINE 35139869273 No Longer Active Robbie Busby MD Active FLONASE 50 MCG/ACT SUSP 1 spray each nostril twice daily for allergies and runny nose FLUTICASONE PROPIONATE 49762085283 No Longer Active Robbie Busby MD Active FIORICET 50-300-40 MG ORAL CAPS take 1 tab po qday prn migraines. [id number] 71514303659 No Longer Active Robbie Busby MD Active VITAMIN D3 11132 UNIT CAPS 2 CAPS PO WEEKLY CHOLECALCIFEROL 21136964043 No Longer Active Robbie Busby MD Active CYCLOBENZAPRINE HCL 10 MG TABS 1 tablet by mouth three times daily as needed for muscle spasm/pain for 10 days CYCLOBENZAPRINE HCL 62366312018 No Longer Active Robbie Busby MD Active PREDNISONE 20 MG TAB take 3 tabs daily for 3 days, 2 tabs daily for 3 days, 1 tab daily for 3 days, 1/2 tab daily for 4 days PREDNISONE 19875310445 No Longer Active Erin Garsia APRN Active CLONIDINE HCL 0.2 MG ORAL TABS 1 TAB BY MOUTH EVERY 8 HOURS 12/29 CLONIDINE HCL 75931301329 No Longer Active Erin Garsia APRN Active MECLIZINE HCL 25 MG TAB one 4 times a day as needed for dizziness MECLIZINE HCL 23853461925 No Longer Active Erin Garsia APRN Active SPIRONOLACTONE 25 MG TAB 4 tablets by mouth daily SPIRONOLACTONE 04923841022 No Longer Active Erin Garsia APRN Active LEVAQUIN 500 MG TAB 1 tablet by mouth daily for 7 days LEVOFLOXACIN 78852766851 No Longer Active Erin Garsia APRN Active BACTRIM DS 800-160 MG TAB 1 tab by mouth twice daily TRIMETHOPRIM-SULFAMETHOXAZOLE 50004372708 No Longer Active Robbie Busby MD Active HYDRALAZINE HCL 50 MG ORAL TABS TWO BY MOUTH THREE TIMES DAILY HYDRALAZINE HCL 21001890614 No Longer Active Jillld Rodríguez APRN Active HYDROCODONE-ACETAMINOPHEN 5-325 MG TABS 1 tab by mouth BID prn back pain 2013 HYDROCODONE-ACETAMINOPHEN 30664479478 No Longer Active Jillina Frakierstenl [employer] EXECUTIVE DIRECTOR Active HYDROCHLOROTHIAZIDE TABS Take one by mouth daily HYDROCHLOROTHIAZIDE TABS 79485700512 No Longer Active Jillina Frazell [employer] EXECUTIVE DIRECTOR Active LAMISIL 125 MG ORAL PACK 1 TAB PO DAILY TERBINAFINE HCL 50431594548 No Longer Active Jillina Frazell [employer] EXECUTIVE DIRECTOR Active TRILEPTAL 150 MG ORAL TABS 1 TAB PO Q HS OXCARBAZEPINE 22517275373 No Longer Active Jillina Frakierstenl [employer] EXECUTIVE DIRECTOR Active BETADINE 10 % EXT SOLN wash with solution to treat follicultis POVIDONE-IODINE 91792439429 No Longer Active Rober Rodríguez APRN Active NYSTATIN 803651 UNIT/ML M/T SUSP 5mL po QID x 10 days NYSTATIN 65713466113 No Longer Active Erin Garsia APRN Active PREDNISONE 20 MG TAB 1 tablet twice daily for 2 days, then 1 tablet once daily for 2 days PREDNISONE 42450293573 No Longer Active Robbie Busby MD Active CEFDINIR 300 MG ORAL CAPS Take 1 cap po bid x 10 days CEFDINIR 89249698935 No Longer Active Robbie Busby MD Active AMLODIPINE BESYLATE 10 MG TABS 1 tablet by mouth daily AMLODIPINE BESYLATE 34396155744 Active Robbie Busby MD Active CARVEDILOL 25 MG TABS 1 & 1/2 TAB po BID CARVEDILOL 87918951908 Active Robbie Busby MD Active NEXIUM 40 MG CPDR 1 cap by mouth daily ESOMEPRAZOLE MAGNESIUM 87348921975 Active Robbie Busby MD Active PROTONIX 40 MG SOLR 1 po qday for acid reflux PANTOPRAZOLE SODIUM 72177491673 No Longer Active Gali Raida Active KEFLEX 500 MG CAP 1 po TID x 10 days CEPHALEXIN 21263352382 No Longer Active Robbie Busby MD Active TOPIRAMATE 50 MG ORAL TABS take 1 tab po BID for migraines. TOPIRAMATE 95272162301 Active Robbie Busby MD Active TEMAZEPAM 15 MG ORAL CAPS 1 TAB PO Q HS TEMAZEPAM 15839323757 Active Robbie Busby MD Active ALPRAZOLAM 2 MG ORAL TABS 1 TAB PO BID ALPRAZOLAM 15634631025 Active Robbie Busby MD Active FENOFIBRATE 145 MG TABS Take one by mouth daily FENOFIBRATE 85937699130 No Longer Active Robbie Busby MD Active SPIRONOLACTONE 50 MG TABS 1 tablet by mouth twice a day SPIRONOLACTONE 72219558203 No Longer Active Robbie Busby MD Active HYDRALAZINE HCL 25 MG TABS 1 tablet by mouth tid for hypertension HYDRALAZINE HCL 86141773136 No Longer Active Robbie Busby MD Active VIIBRYD 40 MG TABS take 1 tab po qday for depression. VILAZODONE HCL 49536673874 No Longer Active Robbie Busby MD Active TERBINAFINE HCL 250 MG TABS 1 tab po qday for foot infection 2014 TERBINAFINE HCL 48613393763 No Longer Active Robbie Busby MD Active GABAPENTIN 300 MG CAPS 1 po q hs for nerve pain GABAPENTIN 65892560047 Active Robbie Busby MD Active CHERATUSSIN AC 100-10 MG/5ML ORAL SOLN 7.5 mL PO q 4-6 hrs PRN cough GUAIFENESIN-CODEINE 45833074531 No Longer Active Robbie Busby MD Active AZITHROMYCIN 250 MG ORAL TABS 2 tablets PO today---then, 1 tablet PO daily x 4 more days (and 1 optional refill) AZITHROMYCIN 73309736211 No Longer Active Robbie Busby MD Active NORVASC 10 MG TAB 1 tablet by mouth daily AMLODIPINE BESYLATE 83026383501 No Longer Active Alex ALVAREZ Active IMDUR 60 MG TAB CR take 1 tab po qday for blood pressure ISOSORBIDE MONONITRATE Active Robbie Busby MD Active ISOSORBIDE DINITRATE 30 MG TABS Take one by mouth daily ISOSORBIDE DINITRATE 82511196377 No Longer Active Robbie Busby MD Active VIIBRYD 40 MG TABS 1 TA B PO DAILY VILAZODONE HCL 78002607915 Active Robbie Busby MD Active ZITHROMAX 250 MG TAB 2 po today, then 1 po q days 2-5 AZITHROMYCIN 79284463674 No Longer Active Robbie Busby MD Active [id number] 0.3 MG/24HR PTWK apply 2 patches q week for HTN CLONIDINE HCL 46625553516 Active Robbie Busby MD Active DOXAZOSIN MESYLATE 4 MG TABS Take one by mouth daily DOXAZOSIN MESYLATE 75585894554 Active Robbie Busby MD Active TOPROL XL 200 MG [id number] Take one by mouth daily METOPROLOL SUCCINATE 84341546714 Active Robbie Busby MD Active VENLAFAXINE HCL ER 150 MG EM70Y-DQE Take one by mouth daily VENLAFAXINE HCL 89397828417 Active Robbie Busby MD Active LIPITOR 40 MG TABS Take one by mouth daily ATORVASTATIN CALCIUM 87700730534 Active Robbie Busby MD Active ISOSORBIDE DINITRATE 30 MG TABS Take one by mouth daily ISOSORBIDE DINITRATE 30 MG TABS 101626 ISOSORBIDE DINITRATE Inactive NORVASC 10 MG TAB 1 tablet by mouth daily NORVASC 10 MG TAB 571808 AMLODIPINE BESYLATE Inactive AZITHROMYCIN 250 MG ORAL TABS 2 tablets PO today---then, 1 tablet PO daily x 4 more days (and 1 optional refill) AZITHROMYCIN 250 MG ORAL TABS 009906 AZITHROMYCIN Inactive CHERATUSSIN AC 100-10 MG/5ML ORAL SOLN 7.5 mL PO q 4-6 hrs PRN cough CHERATUSSIN AC 100-10 MG/5ML ORAL SOLN 245678 GUAIFENESIN- CODEINE Inactive VIIBRYD 40 MG TABS take 1 tab po qday for depression. VIIBRYD 40 MG TABS VILAZODONE HCL Inactive HYDRALAZINE HCL 25 MG TABS 1 tablet by mouth tid for hypertension HYDRALAZINE HCL 25 MG TABS 086557 HYDRALAZINE HCL Inactive SPIRONOLACTONE 50 MG TABS 1 tablet by mouth twice a day SPIRONOLACTONE 50 MG TABS 030265 SPIRONOLACTONE Inactive FENOFIBRATE 145 MG TABS Take one by mouth daily FENOFIBRATE 145 MG TABS 846523 FENOFIBRATE Inactive PROTONIX 40 MG SOLR 1 po qday for acid reflux PROTONIX 40 MG SOLR 564719 PANTOPRAZOLE SODIUM Inactive CEFDINIR 300 MG ORAL CAPS Take 1 cap po bid x 10 days CEFDINIR 300 MG ORAL CAPS 319445 CEFDINIR Inactive PREDNISONE 20 MG TAB 1 tablet twice daily for 2 days, then 1 tablet once daily for 2 days PREDNISONE 20 MG TAB 682494 PREDNISONE Inactive NYSTATIN 341118 UNIT/ML M/T SUSP 5mL po QID x 10 days NYSTATIN 241616 UNIT/ML M/T SUSP 275302 NYSTATIN Inactive BETADINE 10 % EXT SOLN wash with solution to treat follicultis BETADINE 10 % EXT SOLN 5695967 POVIDONE-IODINE Inactive TRILEPTAL 150 MG ORAL TABS 1 TAB PO Q HS TRILEPTAL 150 MG ORAL TABS 793967 OXCARBAZEPINE Inactive LAMISIL 125 MG ORAL PACK 1 TAB PO DAILY LAMISIL 125 MG ORAL PACK TERBINAFINE HCL Inactive HYDROCHLOROTHIAZIDE TABS Take one by mouth daily HYDROCHLOROTHIAZIDE TABS HYDROCHLOROTHIAZIDE TABS Inactive HYDROCODONE-ACETAMINOPHEN 5-325 MG TABS 1 tab by mouth BID prn back pain 2013 HYDROCODONE-ACETAMINOPHEN 5-325 MG TABS 263159 HYDROCODONE -ACETAMINOPHEN Inactive HYDRALAZINE HCL 50 MG ORAL TABS TWO BY MOUTH THREE TIMES DAILY HYDRALAZINE HCL 50 MG ORAL TABS 497366 HYDRALAZINE HCL Inactive LEVAQUIN 500 MG TAB 1 tablet by mouth daily for 7 days LEVAQUIN 500 MG TAB 586686 LEVOFLOXACIN Inactive SPIRONOLACTONE 25 MG TAB 4 tablets by mouth daily SPIRONOLACTONE 25 MG TAB 385600 SPIRONOLACTONE Inactive MECLIZINE HCL 25 MG TAB one 4 times a day as needed for dizziness MECLIZINE HCL 25 MG TAB 732217 MECLIZINE HCL Inactive CLONIDINE HCL 0.2 MG ORAL TABS 1 TAB BY MOUTH EVERY 8 HOURS 12/29 CLONIDINE HCL 0.2 MG ORAL TABS 057986 CLONIDINE HCL Inactive CYCLOBENZAPRINE HCL 10 MG TABS 1 tablet by mouth three times daily as needed for muscle spasm/pain for 10 days CYCLOBENZAPRINE HCL 10 MG TABS 868277 CYCLOBENZAPRINE HCL Inactive VITAMIN D3 69997 UNIT CAPS 2 CAPS PO WEEKLY VITAMIN D3 87697 UNIT CAPS CHOLECALCIFEROL Inactive FIORICET 50-300-40 MG ORAL CAPS take 1 tab po qday prn migraines. FIORICET 50-300-40 MG ORAL CAPS 382464 [id number] Inactive FLONASE 50 MCG/ACT SUSP 1 spray each nostril twice daily for allergies and runny nose FLONASE 50 MCG/ACT SUSP 2618314 FLUTICASONE PROPIONATE Inactive LORATADINE 10 MG TABS 1 tablet by mouth daily for congestion and allergies. LORATADINE 10 MG TABS 630872 LORATADINE Inactive NITROSTAT 0.4 MG SUBL PRN NITROSTAT 0.4 MG SUBL 713231 NITROGLYCERIN Inactive GUAIFENESIN 600 MG [id number] 1 tab po q am GUAIFENESIN 600 MG [id number] GUAIFENESIN Inactive ZITHROMAX 250 MG TAB 2 po today, then 1 po q days 2-5 ZITHROMAX 250 MG TAB 014158 AZITHROMYCIN Inactive TERBINAFINE HCL 250 MG TABS 1 tab po qday for foot infection 2014 TERBINAFINE HCL 250 MG TABS 888983 TERBINAFINE HCL Inactive KEFLEX 500 MG CAP 1 po TID x 10 days KEFLEX 500 MG CAP 535723 CEPHALEXIN Inactive BACTRIM DS 800-160 MG TAB 1 tab by mouth twice daily BACTRIM DS 800-160 MG TAB 793236 TRIMETHOPRIM-SULFAMETHOXAZOLE Inactive PREDNISONE 20 MG TAB take 3 tabs daily for 3 days, 2 tabs daily for 3 days, 1 tab daily for 3 days, 1/2 tab daily for 4 days PREDNISONE 20 MG TAB 771212 PREDNISONE Inactive Advance Directives Directive Description Start [...] AUTO - Chemistry sodium, serum 142 mmol/L 049-436 0271/07/17 carbon dioxide, venous blood 28.2 mmol/L 21.0-32.0 [...] % 11.0-15.0 platelet count 185 THOUSAND/UL 10*3/mm3 505-923 6330/04/14 mean platelet volume 10.9 fL 7.5-12.5 Lab Report: LIPID PANEL, TSH/899, T4, FREE/866 - Chemistry cholesterol, serum 220 mg/dL 904-659 6660/04/14 HDL cholesterol, serum 30 mg/dL > OR=40 [...] 1.80 ng/mL 0.00-4.00 Lab Report: VITAMIN D, 25-HYDROXY/73654 - Chemistry vitamin D 25-hydroxy, serum 25 ng/mL 30-100 Office Visit: Confusion, dizziness after fall - Basic LDL target level 130 mg/dL Office Visit: Confusion, dizziness after fall - Chemistry HDL cholesterol, serum, target level 40 mg/dL triglyceride, target level 150 mg/dL cholesterol, target level 200 mg/dL Encounters Code Encounter Date Provider Facility CPT-09043 Level 3 Est. Patient 15:40:49 CDT Robbie Busby MD [facility] CPT-36080 Level 4 Est. Patient 15:18:19 CDT Robbie Busby MD [facility] CPT-23834 Level 3 Est. Patient 09:00:37 CDT Rober Rodríguez [facility] CPT-21287 Level 3 Est. Patient 16:07:10 CDT Robbie Busby MD [facility] CPT-57263 Level 4 Est. Patient 11:56:16 CDT Erin Garsia [facility] CPT-78129 Level 3 Est. Patient 17:48:02 CDT Robbie Busby MD [facility] CPT-47800 Level 4 Est. Patient 12:00:49 BELT SEWER Rober Rodríguez [facility] CPT-74279 Level 3 Est. Patient 09:16:37 CDT Robbie Busby MD [facility] CPT-22105 Level 3 Est. Patient 19:38:43 CDT Robbie Busby MD [facility] CPT-93028 Level 3 Est. Patient 11:53:38 CDT Robbie Busby MD [facility] CPT-91040 Level 4 Est. Patient 12:52:22 CDT Rober Rodríguez [facility] CPT-38372 Level 4 Est. Patient 22:55:17 CDT Robbie Busby MD [facility] CPT-69815 Level 3 Est. Patient 12:38:24 CDT Desmond Diaz DO [facility] CPT-93020 Level 4 Est. Patient 11:25:03 BELT SEWER Robbie Busby MD [facility] CPT-32740 Level 4 Est. Patient 14:50:10 CDT Robbie Busby MD [facility] CPT-06769 Level 4 Est. Patient 23:30:43 CDT Robbie Busby MD [facility] CPT-22728 Level 4 Est. Patient 10:30:43 CDT Robbie Busby MD [facility] CPT-32584 Level 3 Est. Patient 17:08:12 CDT Alex Shaw [facility] CPT-99839 Level 4 Est. Patient 17:51:38 CDT Robbie Busby MD [facility] CPT-57596 Level 4 Est. Patient 14:00:21 CDT Robbie Busby MD [facility] CPT-39160 Level 4 Est. Patient 12:46:48 CDT Robbie Busby MD [facility] CPT-40823 Level 4 Est. Patient 13:34:33 CDT Robbie Busby MD [facility] CPT-08501 Level 4 Est. Patient 16:58:28 CDT Robbie Busby MD [facility] CPT-88286 Level 3 Est. Patient 19:36:53 CDT Alex Shaw [facility] CPT-32631 Level 3 Est. Patient 12:58:15 CDT Robbie Busby MD [facility] Procedures Code Procedure Name Date Entry Date Standard Description CPT-J1071 Depo Testosterone 200mg 15:40:23 CDT CPT-48641 Abx/Therapy Injection 15:40:23 CDT CPT-J1071 Depo Testosterone 200mg 14:20:43 CDT CPT-96131 Abx/Therapy Injection 14:20:43 CDT CPT-J1071 Depo Testosterone 200mg 14:17:22 CDT CPT-56114 Abx/Therapy Injection 14:17:22 CDT CPT-J1071 Depo Testosterone 200mg 09:03:53 CDT CPT-90529 Abx/Therapy Injection 09:03:53 CDT CPT-G0439 [facility] Annual Wellness Exam 16:47:44 CDT CPT-J1071 Depo Testosterone 200mg 09:06:28 CDT CPT-72928 Abx/Therapy Injection 09:06:28 CDT CPT-J1071 Depo Testosterone 200mg 08:30:01 CDT CPT-83453 Abx/Therapy Injection 08:30:01 CDT CPT-J1071 Depo Testosterone 200mg 08:24:00 CDT CPT-83178 Abx/Therapy Injection 08:24:00 CDT CPT-82232 Venipuncture Draw Fee 14:39:06 CDT CPT-80062 Ribs unilateral 2V - XRAY USE ONLY 12:10:11 CDT CPT-53403 First Vx - Ix admin for Medicare patients 16:32:53 CDT CPT-24720 Boostrix Intramuscular Suspension 5-2.5-18.5 16:32:53 CDT CPT-64934 TB Skin Test 11:42:28 CDT CPT-70299 Tdap 7yrs or > 11:42:28 CDT CPT-J0696 Rocephin 1000 mg (Ceftriaxone) 17:43:43 BELT SEWER CPT-J1040 Depo Medrol 80 mg (Methyl Prednisolone Acetate) 17:43: 43 BELT SEWER CPT-J1100 Decadron 8mg (Dexamethasone) 17:43:42 BELT SEWER CPT-80003 Abx/Therapy Injection 17:43:42 BELT SEWER CPT-52239 Abx/Therapy Injection 17:43:42 BELT SEWER CPT-J1040 Depo Medrol 80 mg (Methyl Prednisolone Acetate) 09:43: 34 BELT SEWER CPT-J1100 Decadron 8mg (Dexamethasone) 09:43:34 BELT SEWER CPT-J0696 Rocephin 1gm Inj Solr 09:43:34 BELT SEWER CPT-38263 Wound Culture - LAB USE ONLY 14:00:21 CDT CPT-I/D I/D Abscess 09:16:37 CDT CPT-56187 Venipuncture Draw Fee 15:20:23 CDT CPT-54352 Microalbumin - LAB USE ONLY 16:02:19 CDT CPT-89397 CBC - LAB USE ONLY 16:02:19 CDT CPT-87173 Venipuncture Draw Fee 16:02:19 CDT CPT-G0438 Initial Annual Wellness Exam 08:10:28 CDT CPT-60781 Venipuncture Draw Fee 13:07:17 CDT CPT-G0008 Administration of Influenza Virus Vaccine 16:09:59 CDT CPT-34607 Fluzone Quadrivalent Intramuscular Suspension 0.5 ML 16: 09:59 CDT CPT-75303 Spec Collection and Handling Fee 15:05:50 CDT
--- OUTSIDE RECORDS SUMMARY | 2018-04-18 12:42 | XMS REPORT | Clinical Summary ---
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 Rober Rodríguez CANE PUSHER Other malignant secondary hypertension Tachycardia 785.0 Active [...] by mouth daily for 7 days LEVOFLOXACIN 89259276837 Active Erin Garsia APRN Active BACTRIM DS 800-160 MG TAB 1 tab by mouth twice daily TRIMETHOPRIM-SULFAMETHOXAZOLE 77234972111 No Longer Active Robbie Busby MD Active SPIRONOLACTONE 25 MG TAB 4 tablets by mouth daily SPIRONOLACTONE 39476081700 Active Robbie Busby MD Active HYDRALAZINE HCL 50 MG ORAL TABS TWO BY MOUTH THREE TIMES DAILY HYDRALAZINE HCL 13557292397 No Longer Active Andrellina Zulemal CANE PUSHER Active HYDROCODONE-ACETAMINOPHEN 5-325 MG TABS 1 tab by mouth BID prn back pain 2013 HYDROCODONE-ACETAMINOPHEN 60303662155 No Longer Active Jillina Frazell CANE PUSHER Active HYDROCHLOROTHIAZIDE TABS Take one by mouth daily HYDROCHLOROTHIAZIDE TABS 71721865151 No Longer Active Jillina Frazell CANE PUSHER Active LAMISIL 125 MG ORAL PACK 1 TAB PO DAILY TERBINAFINE HCL 74804255586 No Longer Active Jillina Frazell CANE PUSHER Active TRILEPTAL 150 MG ORAL TABS 1 TAB PO Q HS OXCARBAZEPINE 51259705363 No Longer Active Jillina Frazell CANE PUSHER Active BETADINE 10 % EXT SOLN wash with solution to treat follicultis POVIDONE-IODINE 58910417344 No Longer Active Jillina Frazell CANE PUSHER Active NYSTATIN 700579 UNIT/ML M/T SUSP 5mL po QID x 10 days NYSTATIN 64377223661 No Longer Active Erin Garsia APRN Active PREDNISONE 20 MG TAB 1 tablet twice daily for 2 days, then 1 tablet once daily for 2 days PREDNISONE 25228913397 No Longer Active Robbie Busby MD Active CEFDINIR 300 MG ORAL CAPS Take 1 cap po bid x 10 days CEFDINIR 70425699818 No Longer Active Robbie Busby MD Active AMLODIPINE BESYLATE 10 MG TABS 1 tablet by mouth daily AMLODIPINE BESYLATE 00037333469 Active Robbie Busby MD Active CARVEDILOL 25 MG TABS 1 & 1/2 TAB po BID CARVEDILOL 09734056484 Active Erin Garsia APRN Active VITAMIN D3 91933 UNIT CAPS 2 CAPS PO WEEKLY CHOLECALCIFEROL 19648579064 Active Erin Garsia APRN Active NEXIUM 40 MG CPDR 1 cap by mouth daily ESOMEPRAZOLE MAGNESIUM 33737280983 Active Robbie Busby MD Active PROTONIX 40 MG SOLR 1 po qday for acid reflux PANTOPRAZOLE SODIUM 90874695876 No Longer Active Gali Raida Active KEFLEX 500 MG CAP 1 po TID x 10 days CEPHALEXIN 00758775703 No Longer Active Robbie Busby MD Active FIORICET 50-300-40 MG ORAL CAPS take 1 tab po qday prn migraines. [id number]-[id number] 47336210626 Active Robbie Busby MD Active TOPIRAMATE 50 MG ORAL TABS take 1 tab po BID for migraines. TOPIRAMATE 56509128924 Active Robbie Busby MD Active MECLIZINE HCL 25 MG TAB one 4 times a day as needed for dizziness MECLIZINE HCL 15596138986 Active Robbie Busby MD Active TEMAZEPAM 15 MG ORAL CAPS 1 TAB PO Q HS TEMAZEPAM 50765925127 Active Robbie Busby MD Active ALPRAZOLAM 2 MG ORAL TABS 1 TAB PO BID ALPRAZOLAM 87484381564 Active Robbie Busby MD Active FENOFIBRATE 145 MG TABS Take one by mouth daily FENOFIBRATE 67183261099 No Longer Active Robbie Busby MD Active SPIRONOLACTONE 50 MG TABS 1 tablet by mouth twice a day SPIRONOLACTONE 73787729165 No Longer Active Robbie Busby MD Active HYDRALAZINE HCL 25 MG TABS 1 tablet by mouth tid for hypertension HYDRALAZINE HCL 74746085698 No Longer Active Robbie Busby MD Active VIIBRYD 40 MG TABS take 1 tab po qday for depression. VILAZODONE HCL 64015596118 No Longer Active Rbobie Busby MD Active TERBINAFINE HCL 250 MG TABS 1 tab po qday for foot infection 2014 TERBINAFINE HCL 51591409946 No Longer Active Robbie Busby MD Active GABAPENTIN 300 MG CAPS 1 po q hs for nerve pain GABAPENTIN 43856924315 Active Robbie Busby MD Active FLONASE 50 MCG/ACT SUSP 1 spray each nostril twice daily for allergies and runny nose FLUTICASONE PROPIONATE 64936607147 Active Robbie Busby MD Active CHERATUSSIN AC 100-10 MG/5ML ORAL SOLN 7.5 mL PO q 4-6 hrs PRN cough GUAIFENESIN-CODEINE 72520961789 No Longer Active Robbie Busby MD Active AZITHROMYCIN 250 MG ORAL TABS 2 tablets PO today---then, 1 tablet PO daily x 4 more days (and 1 optional refill) AZITHROMYCIN 35207646829 No Longer Active Robbie Busby MD Active CLONIDINE HCL 0.2 MG ORAL TABS 1 TAB BY MOUTH EVERY 8 HOURS CLONIDINE HCL 28708200771 Active Robbie Busby MD Active NORVASC 10 MG TAB 1 tablet by mouth daily AMLODIPINE BESYLATE 84114320959 No Longer Active Alex ALVAREZ Active IMDUR 60 MG TAB CR take 1 tab po qday for blood pressure ISOSORBIDE MONONITRATE Active Robbie Busby MD Active ISOSORBIDE DINITRATE 30 MG TABS Take one by mouth daily ISOSORBIDE DINITRATE 60954342610 No Longer Active Robbie Busby MD Active VIIBRYD 40 MG TABS 1 TA B PO DAILY VILAZODONE HCL 68554180351 Active Robbie Busby MD Active LORATADINE 10 MG TABS 1 tablet by mouth daily for congestion and allergies. LORATADINE 60127466748 Active Robbie Busby MD Active ZITHROMAX 250 MG TAB 2 po today, then 1 po q days 2-5 AZITHROMYCIN 15093511999 No Longer Active Robbie Busby MD Active [id number] 0.3 MG/24HR PTWK apply 2 patches q week for HTN CLONIDINE HCL 45080694936 Active Robbie Busby MD Active NITROSTAT 0.4 MG SUBL PRN NITROGLYCERIN 30801260319 Active Robbie Busby MD Active DOXAZOSIN MESYLATE 4 MG TABS Take one by mouth daily DOXAZOSIN MESYLATE 09816355054 Active Erin Garsia APRN Active TOPROL XL 200 MG [id number] Take one by mouth daily METOPROLOL SUCCINATE 01054425332 Active Robbie Busby MD Active VENLAFAXINE HCL ER 150 MG [id number] Take one by mouth daily VENLAFAXINE HCL 13900797487 Active Robbie Busby MD Active LIPITOR 40 MG TABS Take one by mouth daily ATORVASTATIN CALCIUM 42803402016 Active Robbie Busby MD Active ISOSORBIDE DINITRATE 30 MG TABS Take one by mouth daily ISOSORBIDE DINITRATE 30 MG TABS 028367 ISOSORBIDE DINITRATE Inactive NORVASC 10 MG TAB 1 tablet by mouth daily NORVASC 10 MG TAB 462174 AMLODIPINE BESYLATE Inactive AZITHROMYCIN 250 MG ORAL TABS 2 tablets PO today---then, 1 tablet PO daily x 4 more days (and 1 optional refill) AZITHROMYCIN 250 MG ORAL TABS 7710221 AZITHROMYCIN Inactive CHERATUSSIN AC 100-10 MG/5ML ORAL SOLN 7.5 mL PO q 4-6 hrs PRN cough CHERATUSSIN AC 100-10 MG/5ML ORAL SOLN 593525 GUAIFENESIN- CODEINE Inactive VIIBRYD 40 MG TABS take 1 tab po qday for depression. VIIBRYD 40 MG TABS VILAZODONE HCL Inactive HYDRALAZINE HCL 25 MG TABS 1 tablet by mouth tid for hypertension HYDRALAZINE HCL 25 MG TABS 204156 HYDRALAZINE HCL Inactive SPIRONOLACTONE 50 MG TABS 1 tablet by mouth twice a day SPIRONOLACTONE 50 MG TABS 692409 SPIRONOLACTONE Inactive FENOFIBRATE 145 MG TABS Take one by mouth daily FENOFIBRATE 145 MG TABS 549526 FENOFIBRATE Inactive PROTONIX 40 MG SOLR 1 po qday for acid reflux PROTONIX 40 MG SOLR 298914 PANTOPRAZOLE SODIUM Inactive CEFDINIR 300 MG ORAL CAPS Take 1 cap po bid x 10 days CEFDINIR 300 MG ORAL CAPS 913998 CEFDINIR Inactive PREDNISONE 20 MG TAB 1 tablet twice daily for 2 days, then 1 tablet once daily for 2 days PREDNISONE 20 MG TAB 176549 PREDNISONE Inactive NYSTATIN 729628 UNIT/ML M/T SUSP 5mL po QID x 10 days NYSTATIN 364877 UNIT/ML M/T SUSP 090104 NYSTATIN Inactive BETADINE 10 % EXT SOLN wash with solution to treat follicultis BETADINE 10 % EXT SOLN 1114519 POVIDONE-IODINE Inactive TRILEPTAL 150 MG ORAL TABS 1 TAB PO Q HS TRILEPTAL 150 MG ORAL TABS 640677 OXCARBAZEPINE Inactive LAMISIL 125 MG ORAL PACK 1 TAB PO DAILY LAMISIL 125 MG ORAL PACK TERBINAFINE HCL Inactive HYDROCHLOROTHIAZIDE TABS Take one by mouth daily HYDROCHLOROTHIAZIDE TABS HYDROCHLOROTHIAZIDE TABS Inactive HYDROCODONE-ACETAMINOPHEN 5-325 MG TABS 1 tab by mouth BID prn back pain 2013 HYDROCODONE-ACETAMINOPHEN 5-325 MG TABS 992401 HYDROCODONE -ACETAMINOPHEN Inactive HYDRALAZINE HCL 50 MG ORAL TABS TWO BY MOUTH THREE TIMES DAILY HYDRALAZINE HCL 50 MG ORAL TABS 142609 HYDRALAZINE HCL Inactive ZITHROMAX 250 MG TAB 2 po today, then 1 po q days 2-5 ZITHROMAX 250 MG TAB 4650620 AZITHROMYCIN Inactive TERBINAFINE HCL 250 MG TABS 1 tab po qday for foot infection 2014 TERBINAFINE HCL 250 MG TABS 490893 TERBINAFINE HCL Inactive KEFLEX 500 MG CAP 1 po TID x 10 days KEFLEX 500 MG CAP 191683 CEPHALEXIN Inactive BACTRIM DS 800-160 MG TAB 1 tab by mouth twice daily BACTRIM DS 800-160 MG TAB 716704 TRIMETHOPRIM-SULFAMETHOXAZOLE Inactive Advance Directives Directive Description Start [...] % 11.6-14.8 platelet count 229 10^3/MM^3 10*3/mm3 592-700 1019/09/06 hemoglobin, blood 14.4 g/dL 13.5-17.5 erythrocyte (RBC) count 4.72 10^6/MM^3 10*6/mm3 4.69-6.13 leukocyte count, blood 9.7 10^3/MM^3 10*3/mm3 4.6-10.2 Lab Report: Comp. Metabolic Panel, Uric Acid - Chemistry sodium, serum 139 mmol/L 432-462 9809/04/22 carbon dioxide, venous blood 29.4 mmol/L 21.0-32.0 [...] to Follow Negative Lab Report: VITAMIN D, 25-HYDROXY/75569 - Chemistry vitamin D 25-hydroxy, serum 23 ng/mL 30-100 Encounters Code Encounter Date Provider Facility CPT-38367 Level 4 Est. Patient 12:00:49 ASSET ADMINISTRATOR Rober Rodríguez APRN [facility] CPT-47077 Level 3 Est. Patient 09:16:37 CDT Robbie Busby MD [facility] CPT-53157 Level 3 Est. Patient 19:38:43 CDT Robbie Busby MD [facility] CPT-64882 Level 3 Est. Patient 11:53:38 CDT Robbie Busby MD [facility]-64211 Level 4 Est. Patient 12:52:22 CDT Rober Rodríguez APRN [facility] CPT-67568 Level 4 Est. Patient 22:55:17 CDT Robbie Busby MD [facility]-68922 Level 3 Est. Patient 12:38:24 CDT Desmond Diaz DO [facility] CPT-54542 Level 4 Est. Patient 11:25:03 ASSET ADMINISTRATOR Robbie Busby MD [facility]-22247 Level 4 Est. Patient 14:50:10 CDT Robbie Busby MD [facility] CPT-51237 Level 4 Est. Patient 23:30:43 CDT Robbie Busby MD [facility] CPT-81906 Level 4 Est. Patient 10:30:43 CDT Robbie Busby MD [facility] CPT-44514 Level 3 Est. Patient 17:08:12 CDT Alex ALVAREZ [facility] CPT-47690 Level 4 Est. Patient 17:51:38 CDT Robbie Busby MD [facility] CPT-81546 Level 4 Est. Patient 14:00:21 CDT Robbie Busby MD [facility] CPT-30822 Level 4 Est. Patient 12:46:48 CDT Robbie Busby MD [facility]-33376 Level 4 Est. Patient 13:34:33 CDT Robbie Busby MD [facility] CPT-96620 Level 4 Est. Patient 16:58:28 CDT Robbie Busby MD [facility] CPT-61085 Level 3 Est. Patient 19:36:53 CDT Alex ALVAREZ [facility] CPT-82890 Level 3 Est. Patient 12:58:15 CDT Robbie Busby MD [facility] Procedures Code Procedure Name Date Entry Date Standard Description CPT-J1040 Depo Medrol 80 mg (Methyl Prednisolone Acetate) 09:43: 34 ASSET ADMINISTRATOR CPT-J1100 Decadron 8mg (Dexamethasone) 09:43:34 ASSET ADMINISTRATOR CPT-J0696 Rocephin 1gm Inj Solr 09:43:34 ASSET ADMINISTRATOR CPT-68036 Wound Culture - LAB USE ONLY 14:00:21 CDT CPT-I/D I/D Abscess 09:16:37 CDT CPT-85795 Venipuncture Draw Fee 15:20:23 CDT CPT-76775 Microalbumin - LAB USE ONLY 16:02:19 CDT CPT-72027 CBC - LAB USE ONLY 16:02:19 CDT CPT-94177 Venipuncture Draw Fee 16:02:19 CDT CPT-G0438 Initial Annual Wellness Exam 08:10:28 CDT CPT-60475 Venipuncture Draw Fee 13:07:17 CDT CPT-G0008 Administration of Influenza Virus Vaccine 16:09:59 CDT CPT-09651 Fluzone Quadrivalent Intramuscular Suspension 0.5 ML 16: 09:59 CDT CPT-25554 Spec Collection and Handling Fee 15:05:50 CDT
--- OUTSIDE RECORDS SUMMARY | 2018-04-18 12:43 | XMS REPORT | Clinical Summary ---
Author Author Admin, AKUA Organization [facility] Address Unknown Phone Unavailable Allergies, Adverse Reactions, [...] muscle spasm/pain for 10 days CYCLOBENZAPRINE HCL 70789402797 Active Erin Garsia APRN Active PREDNISONE 20 MG TAB take 3 tabs daily for 3 days, 2 tabs daily for 3 days, 1 tab daily for 3 days, 1/2 tab daily for 4 days PREDNISONE 72500126241 No Longer Active Erin Garsia APRN Active CLONIDINE HCL 0.2 MG ORAL TABS 1 TAB BY MOUTH EVERY 8 HOURS 12/29 CLONIDINE HCL 00877079963 No Longer Active Erin Garsia APRN Active MECLIZINE HCL 25 MG TAB one 4 times a day as needed for dizziness MECLIZINE HCL 68700227367 No Longer Active Erin Garsia APRN Active SPIRONOLACTONE 25 MG TAB 4 tablets by mouth daily SPIRONOLACTONE 61417585982 No Longer Active Erin Garsia APRN Active LEVAQUIN 500 MG TAB 1 tablet by mouth daily for 7 days LEVOFLOXACIN 07833705981 No Longer Active Erin Garsia APRN Active BACTRIM DS 800-160 MG TAB 1 tab by mouth twice daily TRIMETHOPRIM-SULFAMETHOXAZOLE 59947573687 No Longer Active Robbie Busby MD Active HYDRALAZINE HCL 50 MG ORAL TABS TWO BY MOUTH THREE TIMES DAILY HYDRALAZINE HCL 26108172747 No Longer Active Jillina Frazell DRAFTING TECHNICIAN Active HYDROCODONE-ACETAMINOPHEN 5-325 MG TABS 1 tab by mouth BID prn back pain 2013 HYDROCODONE-ACETAMINOPHEN 93711117216 No Longer Active Jillina Frazell DRAFTING TECHNICIAN Active HYDROCHLOROTHIAZIDE TABS Take one by mouth daily HYDROCHLOROTHIAZIDE TABS 61704255506 No Longer Active Jillina Frazell DRAFTING TECHNICIAN Active LAMISIL 125 MG ORAL PACK 1 TAB PO DAILY TERBINAFINE HCL 20978100002 No Longer Active Jillina Frazell DRAFTING TECHNICIAN Active TRILEPTAL 150 MG ORAL TABS 1 TAB PO Q HS OXCARBAZEPINE 76891477769 No Longer Active Jillina Frazell DRAFTING TECHNICIAN Active BETADINE 10 % EXT SOLN wash with solution to treat follicultis POVIDONE-IODINE 55734539733 No Longer Active Jillina Frazell DRAFTING TECHNICIAN Active NYSTATIN 485070 UNIT/ML M/T SUSP 5mL po QID x 10 days NYSTATIN 14555675969 No Longer Active Erin Garsia APRN Active PREDNISONE 20 MG TAB 1 tablet twice daily for 2 days, then 1 tablet once daily for 2 days PREDNISONE 40680010297 No Longer Active Robbie Busby MD Active CEFDINIR 300 MG ORAL CAPS Take 1 cap po bid x 10 days CEFDINIR 79352658288 No Longer Active Robbie Busby MD Active AMLODIPINE BESYLATE 10 MG TABS 1 tablet by mouth daily AMLODIPINE BESYLATE 80557895684 Active Robbie Busby MD Active CARVEDILOL 25 MG TABS 1 & 1/2 TAB po BID CARVEDILOL 68657913035 Active Robbie Busby MD Active VITAMIN D3 48420 UNIT CAPS 2 CAPS PO WEEKLY CHOLECALCIFEROL 02782346741 Active Erin Garsia APRN Active NEXIUM 40 MG CPDR 1 cap by mouth daily ESOMEPRAZOLE MAGNESIUM 86034693578 Active Robbie Busby MD Active PROTONIX 40 MG SOLR 1 po qday for acid reflux PANTOPRAZOLE SODIUM 66669020390 No Longer Active Gali Negro Active KEFLEX 500 MG CAP 1 po TID x 10 days CEPHALEXIN 62944266277 No Longer Active Robbie Busby MD Active FIORICET 50-300-40 MG ORAL CAPS take 1 tab po qday prn migraines. VFBQSKOYOH-NSLA-SIOMVRIU 03302968910 Active Robbie Busby MD Active TOPIRAMATE 50 MG ORAL TABS take 1 tab po BID for migraines. TOPIRAMATE 43863893912 Active Robbie Busby MD Active TEMAZEPAM 15 MG ORAL CAPS 1 TAB PO Q HS TEMAZEPAM 71620353925 Active Robbie Busby MD Active ALPRAZOLAM 2 MG ORAL TABS 1 TAB PO BID ALPRAZOLAM 04106855072 Active Robbie Busby MD Active FENOFIBRATE 145 MG TABS Take one by mouth daily FENOFIBRATE 87692677707 No Longer Active Robbie Busby MD Active SPIRONOLACTONE 50 MG TABS 1 tablet by mouth twice a day SPIRONOLACTONE 61123634426 No Longer Active Robbie Busby MD Active HYDRALAZINE HCL 25 MG TABS 1 tablet by mouth tid for hypertension HYDRALAZINE HCL 58511951186 No Longer Active Robbie Busby MD Active VIIBRYD 40 MG TABS take 1 tab po qday for depression. VILAZODONE HCL 74898614700 No Longer Active Robbie Busby MD Active TERBINAFINE HCL 250 MG TABS 1 tab po qday for foot infection 2014 TERBINAFINE HCL 51928389960 No Longer Active Robbie Busby MD Active GABAPENTIN 300 MG CAPS 1 po q hs for nerve pain GABAPENTIN 58801056069 Active Robbie Busby MD Active FLONASE 50 MCG/ACT SUSP 1 spray each nostril twice daily for allergies and runny nose FLUTICASONE PROPIONATE 04103014660 Active Robbie Busby MD Active CHERATUSSIN AC 100-10 MG/5ML ORAL SOLN 7.5 mL PO q 4-6 hrs PRN cough GUAIFENESIN-CODEINE 27806108890 No Longer Active Robbie Busby MD Active AZITHROMYCIN 250 MG ORAL TABS 2 tablets PO today---then, 1 tablet PO daily x 4 more days (and 1 optional refill) AZITHROMYCIN 32394940153 No Longer Active Robbie Busby MD Active NORVASC 10 MG TAB 1 tablet by mouth daily AMLODIPINE BESYLATE 54442457894 No Longer Active Alex ALVAREZ Active IMDUR 60 MG TAB CR take 1 tab po qday for blood pressure ISOSORBIDE MONONITRATE Active Robbie Busby MD Active ISOSORBIDE DINITRATE 30 MG TABS Take one by mouth daily ISOSORBIDE DINITRATE 05353292203 No Longer Active Robbie Busby MD Active VIIBRYD 40 MG TABS 1 TA B PO DAILY VILAZODONE HCL 07492742904 Active Robbie Busby MD Active LORATADINE 10 MG TABS 1 tablet by mouth daily for congestion and allergies. LORATADINE 86083268359 Active Robbie Busby MD Active ZITHROMAX 250 MG TAB 2 po today, then 1 po q days 2-5 AZITHROMYCIN 97667949124 No Longer Active Robbie Busby MD Active [id number]-CBZ-6 0.3 MG/24HR PTWK apply 2 patches q week for HTN CLONIDINE HCL 83292676585 Active Robbie Busby MD Active NITROSTAT 0.4 MG SUBL PRN NITROGLYCERIN 11300683794 Active Robbie Busby MD Active DOXAZOSIN MESYLATE 4 MG TABS Take one by mouth daily DOXAZOSIN MESYLATE 47179618604 Active Erin Garsia DRAFTING TECHNICIAN Active TOPROL XL 200 MG CB71G-PNU Take one by mouth daily METOPROLOL SUCCINATE 59575872998 Active Robbie Busby MD Active VENLAFAXINE HCL ER 150 MG [id number] Take one by mouth daily VENLAFAXINE HCL 11260279519 Active Robbie Busby MD Active LIPITOR 40 MG TABS Take one by mouth daily ATORVASTATIN CALCIUM 54978411265 Active Robbie Busby MD Active ISOSORBIDE DINITRATE 30 MG TABS Take one by mouth daily ISOSORBIDE DINITRATE 30 MG TABS 638975 ISOSORBIDE DINITRATE Inactive NORVASC 10 MG TAB 1 tablet by mouth daily NORVASC 10 MG TAB 763932 AMLODIPINE BESYLATE Inactive AZITHROMYCIN 250 MG ORAL TABS 2 tablets PO today---then, 1 tablet PO daily x 4 more days (and 1 optional refill) AZITHROMYCIN 250 MG ORAL TABS 3512918 AZITHROMYCIN Inactive CHERATUSSIN AC 100-10 MG/5ML ORAL SOLN 7.5 mL PO q 4-6 hrs PRN cough CHERATUSSIN AC 100-10 MG/5ML ORAL SOLN 899263 GUAIFENESIN- CODEINE Inactive VIIBRYD 40 MG TABS take 1 tab po qday for depression. VIIBRYD 40 MG TABS VILAZODONE HCL Inactive HYDRALAZINE HCL 25 MG TABS 1 tablet by mouth tid for hypertension HYDRALAZINE HCL 25 MG TABS 846429 HYDRALAZINE HCL Inactive SPIRONOLACTONE 50 MG TABS 1 tablet by mouth twice a day SPIRONOLACTONE 50 MG TABS 279681 SPIRONOLACTONE Inactive FENOFIBRATE 145 MG TABS Take one by mouth daily FENOFIBRATE 145 MG TABS 990167 FENOFIBRATE Inactive PROTONIX 40 MG SOLR 1 po qday for acid reflux PROTONIX 40 MG SOLR 451052 PANTOPRAZOLE SODIUM Inactive CEFDINIR 300 MG ORAL CAPS Take 1 cap po bid x 10 days CEFDINIR 300 MG ORAL CAPS 536776 CEFDINIR Inactive PREDNISONE 20 MG TAB 1 tablet twice daily for 2 days, then 1 tablet once daily for 2 days PREDNISONE 20 MG TAB 163398 PREDNISONE Inactive NYSTATIN 391271 UNIT/ML M/T SUSP 5mL po QID x 10 days NYSTATIN 139818 UNIT/ML M/T SUSP 583222 NYSTATIN Inactive BETADINE 10 % EXT SOLN wash with solution to treat follicultis BETADINE 10 % EXT SOLN 1820316 POVIDONE-IODINE Inactive TRILEPTAL 150 MG ORAL TABS 1 TAB PO Q HS TRILEPTAL 150 MG ORAL TABS 566210 OXCARBAZEPINE Inactive LAMISIL 125 MG ORAL PACK 1 TAB PO DAILY LAMISIL 125 MG ORAL PACK TERBINAFINE HCL Inactive HYDROCHLOROTHIAZIDE TABS Take one by mouth daily HYDROCHLOROTHIAZIDE TABS HYDROCHLOROTHIAZIDE TABS Inactive HYDROCODONE-ACETAMINOPHEN 5-325 MG TABS 1 tab by mouth BID prn back pain 2013 HYDROCODONE-ACETAMINOPHEN 5-325 MG TABS 399957 HYDROCODONE -ACETAMINOPHEN Inactive HYDRALAZINE HCL 50 MG ORAL TABS TWO BY MOUTH THREE TIMES DAILY HYDRALAZINE HCL 50 MG ORAL TABS 574964 HYDRALAZINE HCL Inactive LEVAQUIN 500 MG TAB 1 tablet by mouth daily for 7 days LEVAQUIN 500 MG TAB 960528 LEVOFLOXACIN Inactive SPIRONOLACTONE 25 MG TAB 4 tablets by mouth daily SPIRONOLACTONE 25 MG TAB 315161 SPIRONOLACTONE Inactive MECLIZINE HCL 25 MG TAB one 4 times a day as needed for dizziness MECLIZINE HCL 25 MG TAB 102617 MECLIZINE HCL Inactive CLONIDINE HCL 0.2 MG ORAL TABS 1 TAB BY MOUTH EVERY 8 HOURS 12/29 CLONIDINE HCL 0.2 MG ORAL TABS 460370 CLONIDINE HCL Inactive ZITHROMAX 250 MG TAB 2 po today, then 1 po q days 2-5 ZITHROMAX 250 MG TAB 3337940 AZITHROMYCIN Inactive TERBINAFINE HCL 250 MG TABS 1 tab po qday for foot infection 2014 TERBINAFINE HCL 250 MG TABS 436548 TERBINAFINE HCL Inactive KEFLEX 500 MG CAP 1 po TID x 10 days KEFLEX 500 MG CAP 915193 CEPHALEXIN Inactive BACTRIM DS 800-160 MG TAB 1 tab by mouth twice daily BACTRIM DS 800-160 MG TAB 042199 TRIMETHOPRIM-SULFAMETHOXAZOLE Inactive PREDNISONE 20 MG TAB take 3 tabs daily for 3 days, 2 tabs daily for 3 days, 1 tab daily for 3 days, 1/2 tab daily for 4 days PREDNISONE 20 MG TAB 198613 PREDNISONE Inactive Advance Directives Directive Description Start [...] % 11.0-15.0 platelet count 185 THOUSAND/UL 10*3/mm3 117-989 2056/04/14 mean platelet volume 10.9 fL 7.5-12.5 Lab Report: HEPATITIS B SAB/Immune Status, RUBELLA IGG AB(Immune Status) - Serology rubella antibody, serum, IgG 2.06 Lab Report: LIPID PANEL, TSH/899, T4, FREE/866 - Chemistry cholesterol, serum 220 mg/dL 355-259 8730/04/14 HDL cholesterol, serum 30 mg/dL > OR=40 triglyceride, serum, fasting 466 mg/dL <150 LDL cholesterol, serum SEE NOTE mg/dL (calc) mg/dL <130 cholesterol/HDL ratio, serum 7.3 (calc) < OR=5.0 Lab Report: MICROALB/CREAT W/RATIO - Chemistry albumin/creatinine ratio, urine < 30 mg/g mg/g{creat} 0-29 Lab Report: MICROALB/CREAT W/RATIO - Lab microalbumin, urine 80 0-19 Lab Report: VITAMIN D, 25-HYDROXY/87092 - Chemistry vitamin D 25-hydroxy, serum 23 ng/mL 30-100 Encounters Code Encounter Date Provider Facility CPT-33443 Level 3 Est. Patient 17:48:02 CDT Robbie Busby MD [facility]-82998 Level 4 Est. 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 Patient 09:16:37 CDT Robbie Busby MD [facility]-71330 Level 3 Est. Patient 19:38:43 CDT Robbie Busby MD [facility]-10888 Level 3 Est. Patient 11:53:38 CDT Robbie Busby MD [facility]-57176 Level 4 Est. Patient 12:52:22 CDT Rober Rodríguez [facility]-40604 Level 4 Est. Patient 22:55:17 CDT Robbie Busby MD [facility] CPT-03209 Level 3 Est. Patient 12:38:24 CDT Desmond Diaz DO [facility] CPT-50385 Level 4 Est. Patient 11:25:03 WATERPROOFER HELPER Robbie Busby MD [facility] CPT-04035 Level 4 Est. Patient 14:50:10 CDT Robbie Busby MD [facility] CPT-19784 Level 4 Est. Patient 23:30:43 CDT Robbie Busby MD [facility] CPT-59472 Level 4 Est. Patient 10:30:43 CDT Robbie Busby MD [facility] CPT-65244 Level 3 Est. Patient 17:08:12 CDT Alex ALVAREZ [facility] CPT-64017 Level 4 Est. Patient 17:51:38 CDT Robbie Busby MD [facility]-15902 Level 4 Est. Patient 14:00:21 CDT Robbie Busby MD [facility] CPT-63599 Level 4 Est. Patient 12:46:48 CDT Robbie Busby MD [facility] CPT-84047 Level 4 Est. Patient 13:34:33 CDT Robbie Busby MD [facility] CPT-19471 Level 4 Est. Patient 16:58:28 CDT Robbie Busby MD [facility] CPT-37488 Level 3 Est. Patient 19:36:53 CDT Alex ALVAREZ [facility] CPT-97243 Level 3 Est. Patient 12:58:15 CDT Robbie Busby MD [facility] Procedures Code Procedure Name Date Entry Date Standard Description CPT-J0696 Rocephin 1000 mg (Ceftriaxone) 17:43:43 WATERPROOFER HELPER CPT-J1040 Depo Medrol 80 mg (Methyl Prednisolone Acetate) 17:43: 43 WATERPROOFER HELPER CPT-J1100 Decadron 8mg (Dexamethasone) 17:43:42 WATERPROOFER HELPER CPT-26318 Abx/Therapy Injection 17:43:42 WATERPROOFER HELPER CPT-18156 Abx/Therapy Injection 17:43:42 WATERPROOFER HELPER CPT-J1040 Depo Medrol 80 mg (Methyl Prednisolone Acetate) 09:43: 34 WATERPROOFER HELPER CPT-J1100 Decadron 8mg (Dexamethasone) 09:43:34 WATERPROOFER HELPER CPT-J0696 Rocephin 1gm Inj Solr 09:43:34 WATERPROOFER HELPER CPT-93789 Wound Culture - LAB USE ONLY 14:00:21 CDT CPT-I/D I/D Abscess 09:16:37 CDT CPT-84006 Venipuncture Draw Fee 15:20:23 CDT CPT-64965 Microalbumin - LAB USE ONLY 16:02:19 CDT CPT-39479 CBC - LAB USE ONLY 16:02:19 CDT CPT-54813 Venipuncture Draw Fee 16:02:19 CDT CPT-G0438 Initial Annual Wellness Exam 08:10:28 CDT CPT-93222 Venipuncture Draw Fee 13:07:17 CDT CPT-G0008 Administration of Influenza Virus Vaccine 16:09:59 CDT CPT-16844 Fluzone Quadrivalent Intramuscular Suspension 0.5 ML 16: 09:59 CDT CPT-92635 Spec Collection and Handling Fee 15:05:50 CDT
--- OUTSIDE RECORDS SUMMARY | 2018-04-18 12:43 | XMS REPORT | Clinical Summary ---
Author Author Admin, AKUA Organization [facility] Address Unknown Phone Unavailable Allergies, Adverse [...] for allergies and runny nose FLUTICASONE PROPIONATE 10584325180 Active Robbie Busby MD Active CHERATUSSIN AC 100-10 MG/5ML ORAL SOLN 7.5 mL PO q 4-6 hrs PRN cough GUAIFENESIN-CODEINE 80865917028 No Longer Active Robbie Busby MD Active AZITHROMYCIN 250 MG ORAL TABS 2 tablets PO today---then, 1 tablet PO daily x 4 more days (and 1 optional refill) AZITHROMYCIN 41569964658 No Longer Active Robbie Busby MD Active CLONIDINE HCL 0.2 MG ORAL TABS 1 TAB BY MOUTH EVERY 8 HOURS CLONIDINE HCL 11686398104 Active Robbie Busby MD Active HYDROCHLOROTHIAZIDE TABS Take one by mouth daily HYDROCHLOROTHIAZIDE TABS 87579420504 Active Alex ALVAREZ Active NORVASC 10 MG TAB 1 tablet by mouth daily AMLODIPINE BESYLATE 28801578833 No Longer Active Alex ALVAREZ Active PROTONIX 40 MG SOLR 1 po qday for acid reflux PANTOPRAZOLE SODIUM 79199724781 Active Robbie Busby MD Active IMDUR 60 MG TAB CR take 1 tab po qday for blood pressure ISOSORBIDE MONONITRATE Active Robbie Busby MD Active ISOSORBIDE DINITRATE 30 MG TABS Take one by mouth daily ISOSORBIDE DINITRATE 98785957864 No Longer Active Robbie Busby MD Active VIIBRYD 40 MG TABS take 1 tab po qday for depression. VILAZODONE HCL 67922477923 Active Robbie Busby MD Active VIIBRYD 40 MG TABS 1 TA B PO DAILY VILAZODONE HCL 27249576787 Active Robbie Busby MD Active LORATADINE 10 MG TABS 1 tablet by mouth daily for congestion and allergies. LORATADINE 49950178267 Active Robbie Busby MD Active ZITHROMAX 250 MG TAB 2 po today, then 1 po q days 2-5 AZITHROMYCIN 22852241877 No Longer Active Robbie Busby MD Active HYDROCODONE-ACETAMINOPHEN 5-325 MG TABS 1 tab by mouth BID prn back pain 2013 HYDROCODONE-ACETAMINOPHEN 67459262772 Active Robbie Busby MD Active HYDRALAZINE HCL 50 MG TABS take 1 tab po QID for high blood pressure HYDRALAZINE HCL 55320038778 Active Robbie Busby MD Active [id number]-6 0.3 MG/24HR PTWK apply 2 patches q week for HTN CLONIDINE HCL 20966454126 Active Robbie Busby MD Active FENOFIBRATE 145 MG TABS Take one by mouth daily FENOFIBRATE 69442048743 Active Robbie Busby MD Active NITROSTAT 0.4 MG SUBL PRN NITROGLYCERIN 11467388631 Active Robbie Busby MD Active DOXAZOSIN MESYLATE 4 MG TABS Take one by mouth daily DOXAZOSIN MESYLATE 85970464663 Active Robbie Busby MD Active HYDRALAZINE HCL 25 MG TABS 1 tablet by mouth tid for hypertension HYDRALAZINE HCL 80307647051 Active Robbie Busby MD Active TOPROL XL 200 MG [id number] Take one by mouth daily METOPROLOL SUCCINATE 48950102111 Active Robbie Busby MD Active SPIRONOLACTONE 50 MG TABS 1 tablet by mouth twice a day SPIRONOLACTONE 92513405630 Active oRbbie Busby MD Active VENLAFAXINE HCL ER 150 MG [id number] Take one by mouth daily VENLAFAXINE HCL 49625526755 Active Robbie Busby MD Active LIPITOR 40 MG TABS Take one by mouth daily ATORVASTATIN CALCIUM 21453373293 Active Robbie Busby MD Active ISOSORBIDE DINITRATE 30 MG TABS Take one by mouth daily ISOSORBIDE DINITRATE 30 MG TABS 497337 ISOSORBIDE DINITRATE Inactive NORVASC 10 MG TAB 1 tablet by mouth daily NORVASC 10 MG TAB 455918 AMLODIPINE BESYLATE Inactive AZITHROMYCIN 250 MG ORAL TABS 2 tablets PO today---then, 1 tablet PO daily x 4 more days (and 1 optional refill) AZITHROMYCIN 250 MG ORAL TABS 6177089 AZITHROMYCIN Inactive CHERATUSSIN AC 100-10 MG/5ML ORAL SOLN 7.5 mL PO q 4-6 hrs PRN cough CHERATUSSIN AC 100-10 MG/5ML ORAL SOLN 503699 GUAIFENESIN- CODEINE Inactive ZITHROMAX 250 MG TAB 2 po today, then 1 po q days 2-5 ZITHROMAX 250 MG TAB 4773868 AZITHROMYCIN Inactive Vital Signs Date Name Value [...] 2+ mg/dL Negative sodium, serum 144 mmol/L 064-453 2815/07/07 potassium, serum 3.9 mmol/L 3.5-5.2 chloride, serum [...] Panel - Chemistry sodium, serum 141 mmol/L 295-866 8953/12/05 potassium, serum 4.0 mmol/L 3.5-5.2 chloride, serum [...] mg/dL Encounters Code Encounter Date Provider Facility CPT-42029 Level 4 Est. Patient 10:30:43 CDT Robbie Busby MD [facility] CPT-22721 Level 3 Est. Patient 17:08:12 CDT Alex Shaw [facility] CPT-85115 Level 4 Est. Patient 17:51:38 CDT Robbie Busby MD [facility] CPT-27218 Level 4 Est. Patient 14:00:21 CDT Robbie Busby MD [facility] CPT-15644 Level 4 Est. Patient 12:46:48 CDT Robbie Busby MD [facility] CPT-39988 Level 4 Est. Patient 13:34:33 CDT Robbie Busby MD [facility] CPT-91634 Level 4 Est. Patient 16:58:28 CDT Robbie Busby MD [facility] CPT-68291 Level 3 Est. Patient 19:36:53 CDT Alex Shaw [facility] CPT-37519 Level 3 Est. Patient 12:58:15 CDT Robbie Busby MD [facility] Procedures Code Procedure Name Date Entry Date Standard Description CPT-G0008 Administration of Influenza Virus Vaccine 16:09:59 CDT CPT-87924 Fluzone Quadrivalent Intramuscular Suspension 0.5 ML 16: 09:59 CDT CPT-79661 Spec Collection and Handling Fee 15:05:50 CDT
--- OUTSIDE RECORDS SUMMARY | 2018-04-18 12:44 | XMS REPORT | Clinical Summary ---
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 Rober Rodríguez [employer] Other malignant secondary hypertension Tachycardia 785.0 Active [...] by mouth daily for 7 days LEVOFLOXACIN 05461923296 Active Erin Garsia APRN Active BACTRIM DS 800-160 MG TAB 1 tab by mouth twice daily TRIMETHOPRIM-SULFAMETHOXAZOLE 22802446092 No Longer Active Robbie Busby MD Active SPIRONOLACTONE 25 MG TAB 4 tablets by mouth daily SPIRONOLACTONE 13544654804 Active Robbie Busby MD Active HYDRALAZINE HCL 50 MG ORAL TABS TWO BY MOUTH THREE TIMES DAILY HYDRALAZINE HCL 17007707703 No Longer Active Andrellina Zulemal [employer]INTENDENT [employer] Active HYDROCODONE-ACETAMINOPHEN 5-325 MG TABS 1 tab by mouth BID prn back pain 2013 HYDROCODONE-ACETAMINOPHEN 33947743738 No Longer Active Jillina Frazell [employer]PERINTENDENT [employer] Active HYDROCHLOROTHIAZIDE TABS Take one by mouth daily HYDROCHLOROTHIAZIDE TABS 19321871017 No Longer Active Jillina Frazell SUPERINTENDENT SERVICE Active LAMISIL 125 MG ORAL PACK 1 TAB PO DAILY TERBINAFINE HCL 43143473011 No Longer Active Jillina Frazell [employer]PERINTENDENT SERVICE Active TRILEPTAL 150 MG ORAL TABS 1 TAB PO Q HS OXCARBAZEPINE 91389072286 No Longer Active Jillina Frazell [employer]PERINTENDENT [employer] Active BETADINE 10 % EXT SOLN wash with solution to treat follicultis POVIDONE-IODINE 81627454456 No Longer Active Jillina Frazell [employer] Active NYSTATIN 421441 UNIT/ML M/T SUSP 5mL po QID x 10 days NYSTATIN 24438829526 No Longer Active Erin Garsia APRN Active PREDNISONE 20 MG TAB 1 tablet twice daily for 2 days, then 1 tablet once daily for 2 days PREDNISONE 18347885844 No Longer Active Robbie Busby MD Active CEFDINIR 300 MG ORAL CAPS Take 1 cap po bid x 10 days CEFDINIR 87031917174 No Longer Active Robbie Busby MD Active AMLODIPINE BESYLATE 10 MG TABS 1 tablet by mouth daily AMLODIPINE BESYLATE 61650091830 Active Robbie Busby MD Active CARVEDILOL 25 MG TABS 1 & 1/2 TAB po BID CARVEDILOL 05372873335 Active Erin Garsia APRN Active VITAMIN D3 90867 UNIT CAPS 2 CAPS PO WEEKLY CHOLECALCIFEROL 11964412098 Active Erin Garsia APRN Active NEXIUM 40 MG CPDR 1 cap by mouth daily ESOMEPRAZOLE MAGNESIUM 52066564506 Active Robbie Busby MD Active PROTONIX 40 MG SOLR 1 po qday for acid reflux PANTOPRAZOLE SODIUM 44162739071 No Longer Active Gali Raida Active KEFLEX 500 MG CAP 1 po TID x 10 days CEPHALEXIN 09475872634 No Longer Active Robbie Busby MD Active FIORICET 50-300-40 MG ORAL CAPS take 1 tab po qday prn migraines. [id number] 71630629263 Active Robbie Busby MD Active TOPIRAMATE 50 MG ORAL TABS take 1 tab po BID for migraines. TOPIRAMATE 16736927938 Active Robbie Busby MD Active MECLIZINE HCL 25 MG TAB one 4 times a day as needed for dizziness MECLIZINE HCL 01195859998 Active Robbie Busby MD Active TEMAZEPAM 15 MG ORAL CAPS 1 TAB PO Q HS TEMAZEPAM 23663617332 Active Robbie Busby MD Active ALPRAZOLAM 2 MG ORAL TABS 1 TAB PO BID ALPRAZOLAM 90030087024 Active Robbie Busby MD Active FENOFIBRATE 145 MG TABS Take one by mouth daily FENOFIBRATE 68634987976 No Longer Active Robbie Busby MD Active SPIRONOLACTONE 50 MG TABS 1 tablet by mouth twice a day SPIRONOLACTONE 10823909730 No Longer Active Robbie Busby MD Active HYDRALAZINE HCL 25 MG TABS 1 tablet by mouth tid for hypertension HYDRALAZINE HCL 05405524203 No Longer Active Robbie Busby MD Active VIIBRYD 40 MG TABS take 1 tab po qday for depression. VILAZODONE HCL 99537215802 No Longer Active Robbie Busby MD Active TERBINAFINE HCL 250 MG TABS 1 tab po qday for foot infection 2014 TERBINAFINE HCL 87190232856 No Longer Active Robbie Busby MD Active GABAPENTIN 300 MG CAPS 1 po q hs for nerve pain GABAPENTIN 98935699063 Active Robbie Busby MD Active FLONASE 50 MCG/ACT SUSP 1 spray each nostril twice daily for allergies and runny nose FLUTICASONE PROPIONATE 37854564141 Active Robbie Busby MD Active CHERATUSSIN AC 100-10 MG/5ML ORAL SOLN 7.5 mL PO q 4-6 hrs PRN cough GUAIFENESIN-CODEINE 48589259879 No Longer Active Robbie Busby MD Active AZITHROMYCIN 250 MG ORAL TABS 2 tablets PO today---then, 1 tablet PO daily x 4 more days (and 1 optional refill) AZITHROMYCIN 54769452440 No Longer Active Robbie Busby MD Active CLONIDINE HCL 0.2 MG ORAL TABS 1 TAB BY MOUTH EVERY 8 HOURS CLONIDINE HCL 61920877555 Active Erin Garsia APRN Active NORVASC 10 MG TAB 1 tablet by mouth daily AMLODIPINE BESYLATE 74982165840 No Longer Active Alex ALVAREZ Active IMDUR 60 MG TAB CR take 1 tab po qday for blood pressure ISOSORBIDE MONONITRATE Active Robbie Busby MD Active ISOSORBIDE DINITRATE 30 MG TABS Take one by mouth daily ISOSORBIDE DINITRATE 19605633254 No Longer Active Robbie Busby MD Active VIIBRYD 40 MG TABS 1 TA B PO DAILY VILAZODONE HCL 94311172380 Active Robbie Busby MD Active LORATADINE 10 MG TABS 1 tablet by mouth daily for congestion and allergies. LORATADINE 16487372392 Active Robbie Busby MD Active ZITHROMAX 250 MG TAB 2 po today, then 1 po q days 2-5 AZITHROMYCIN 57143644998 No Longer Active Robbie Busby MD Active [id number] 0.3 MG/24HR PTWK apply 2 patches q week for HTN CLONIDINE HCL 09019081979 Active Robbie Busby MD Active NITROSTAT 0.4 MG SUBL PRN NITROGLYCERIN 62982210170 Active Robbie Busby MD Active DOXAZOSIN MESYLATE 4 MG TABS Take one by mouth daily DOXAZOSIN MESYLATE 83239732555 Active Erin Garsia APRN Active TOPROL XL 200 MG [id number] Take one by mouth daily METOPROLOL SUCCINATE 99150607829 Active Robbie Busby MD Active VENLAFAXINE HCL ER 150 MG [id number]-GCP Take one by mouth daily VENLAFAXINE HCL 51787059933 Active Robbie Busby MD Active LIPITOR 40 MG TABS Take one by mouth daily ATORVASTATIN CALCIUM 90888832175 Active Robbie Busby MD Active ISOSORBIDE DINITRATE 30 MG TABS Take one by mouth daily ISOSORBIDE DINITRATE 30 MG TABS 814305 ISOSORBIDE DINITRATE Inactive NORVASC 10 MG TAB 1 tablet by mouth daily NORVASC 10 MG TAB 429921 AMLODIPINE BESYLATE Inactive AZITHROMYCIN 250 MG ORAL TABS 2 tablets PO today---then, 1 tablet PO daily x 4 more days (and 1 optional refill) AZITHROMYCIN 250 MG ORAL TABS 4461507 AZITHROMYCIN Inactive CHERATUSSIN AC 100-10 MG/5ML ORAL SOLN 7.5 mL PO q 4-6 hrs PRN cough CHERATUSSIN AC 100-10 MG/5ML ORAL SOLN 667516 GUAIFENESIN- CODEINE Inactive VIIBRYD 40 MG TABS take 1 tab po qday for depression. VIIBRYD 40 MG TABS VILAZODONE HCL Inactive HYDRALAZINE HCL 25 MG TABS 1 tablet by mouth tid for hypertension HYDRALAZINE HCL 25 MG TABS 174571 HYDRALAZINE HCL Inactive SPIRONOLACTONE 50 MG TABS 1 tablet by mouth twice a day SPIRONOLACTONE 50 MG TABS 024624 SPIRONOLACTONE Inactive FENOFIBRATE 145 MG TABS Take one by mouth daily FENOFIBRATE 145 MG TABS 406896 FENOFIBRATE Inactive PROTONIX 40 MG SOLR 1 po qday for acid reflux PROTONIX 40 MG SOLR 134828 PANTOPRAZOLE SODIUM Inactive CEFDINIR 300 MG ORAL CAPS Take 1 cap po bid x 10 days CEFDINIR 300 MG ORAL CAPS 890255 CEFDINIR Inactive PREDNISONE 20 MG TAB 1 tablet twice daily for 2 days, then 1 tablet once daily for 2 days PREDNISONE 20 MG TAB 570354 PREDNISONE Inactive NYSTATIN 790887 UNIT/ML M/T SUSP 5mL po QID x 10 days NYSTATIN 943748 UNIT/ML M/T SUSP 133387 NYSTATIN Inactive BETADINE 10 % EXT SOLN wash with solution to treat follicultis BETADINE 10 % EXT SOLN 2236438 POVIDONE-IODINE Inactive TRILEPTAL 150 MG ORAL TABS 1 TAB PO Q HS TRILEPTAL 150 MG ORAL TABS 206590 OXCARBAZEPINE Inactive LAMISIL 125 MG ORAL PACK 1 TAB PO DAILY LAMISIL 125 MG ORAL PACK TERBINAFINE HCL Inactive HYDROCHLOROTHIAZIDE TABS Take one by mouth daily HYDROCHLOROTHIAZIDE TABS HYDROCHLOROTHIAZIDE TABS Inactive HYDROCODONE-ACETAMINOPHEN 5-325 MG TABS 1 tab by mouth BID prn back pain 2013 HYDROCODONE-ACETAMINOPHEN 5-325 MG TABS 550311 HYDROCODONE -ACETAMINOPHEN Inactive HYDRALAZINE HCL 50 MG ORAL TABS TWO BY MOUTH THREE TIMES DAILY HYDRALAZINE HCL 50 MG ORAL TABS 997823 HYDRALAZINE HCL Inactive ZITHROMAX 250 MG TAB 2 po today, then 1 po q days 2-5 ZITHROMAX 250 MG TAB 0909395 AZITHROMYCIN Inactive TERBINAFINE HCL 250 MG TABS 1 tab po qday for foot infection 2014 TERBINAFINE HCL 250 MG TABS 521306 TERBINAFINE HCL Inactive KEFLEX 500 MG CAP 1 po TID x 10 days KEFLEX 500 MG CAP 957214 CEPHALEXIN Inactive BACTRIM DS 800-160 MG TAB 1 tab by mouth twice daily BACTRIM DS 800-160 MG TAB 657117 TRIMETHOPRIM-SULFAMETHOXAZOLE Inactive Advance Directives Directive Description Start [...] % 11.6-14.8 platelet count 229 10^3/MM^3 10*3/mm3 565-376 9699/09/06 leukocyte count, blood 9.7 10^3/MM^3 10*3/mm3 4.6-10.2 erythrocyte (RBC) count 4.72 10^6/MM^3 10*6/mm3 4.69-6.13 hemoglobin, blood 14.4 g/dL 13.5-17.5 hematocrit, blood 42.4 % 41.0-53.0 mean corpuscular volume, RBC 90 fL 80-97 Lab Report: Comp. Metabolic Panel, Uric Acid - Chemistry aspartate aminotransferase (SGOT), serum 21 U/L 15-37 alanine aminotransferase (SGPT), serum 40 U/L 12-78 creatinine, serum 1.65 mg/dL 0.55-1.30 urea nitrogen, blood 29 mg/dL 7-18 bilirubin, serum, total 0.60 mg/dL 0.00-1.00 uric acid, serum 10.7 mg/dL 2.6-7.2 blood glucose 104 mg/dL 65-110 chloride, serum 104 mmol/L 98-107 potassium, serum 4.1 mmol/L 3.5-5.2 carbon dioxide, venous blood 29.4 mmol/L 21.0-32.0 sodium, serum 139 mmol/L 056-317 9123/04/22 calcium, serum 9.4 mg/dL 8.5-10.1 Lab Report: HEPATITIS B SAB/Immune Status, RUBELLA IGG AB(Immune Status) - Serology rubella antibody, serum, IgG 2.06 Lab Report: MICROALB/CREAT W/RATIO - Chemistry albumin/creatinine ratio, urine < 30 mg/g mg/g{creat} 0-29 Lab Report: MICROALB/CREAT W/RATIO - Lab microalbumin, urine 80 0-19 Lab Report: VITAMIN D, 25-HYDROXY/70477 - Chemistry vitamin D 25-hydroxy, serum 23 ng/mL 30-100 Encounters Code Encounter Date Provider Facility CPT-13842 Level 4 Est. Patient 12:00:49 HEAVY MOBILE EQUIPMENT OPERATOR Rober Rodríguez [facility] CPT-48616 Level 3 Est. Patient 09:16:37 CDT Robbie Busby MD [facility] CPT-87713 Level 3 Est. Patient 19:38:43 CDT Robbie Busby MD [facility] CPT-58482 Level 3 Est. Patient 11:53:38 CDT Robbie Busby MD [facility] CPT-32182 Level 4 Est. Patient 12:52:22 CDT Rober Rodríguez [facility] CPT-05248 Level 4 Est. Patient 22:55:17 CDT Robbie Busby MD [facility] CPT-97782 Level 3 Est. Patient 12:38:24 CDT Desmond Diaz DO [facility] CPT-24034 Level 4 Est. Patient 11:25:03 HEAVY MOBILE EQUIPMENT OPERATOR Robbie Busby MD [facility] CPT-78398 Level 4 Est. Patient 14:50:10 CDT Robbie Busby MD [facility] CPT-46782 Level 4 Est. Patient 23:30:43 CDT Robbie Busby MD [facility] CPT-24551 Level 4 Est. Patient 10:30:43 CDT Robbie Busby MD [facility] CPT-58962 Level 3 Est. Patient 17:08:12 CDT Alex ALVAREZ [facility] CPT-84992 Level 4 Est. Patient 17:51:38 CDT Robbie Busby MD [facility] CPT-52355 Level 4 Est. Patient 14:00:21 CDT Robbie Busby MD [facility] CPT-99380 Level 4 Est. Patient 12:46:48 CDT Robbie Busby MD [facility] CPT-28706 Level 4 Est. Patient 13:34:33 CDT Robbie Busby MD [facility] CPT-92451 Level 4 Est. Patient 16:58:28 CDT Robbie Busby MD [facility] CPT-76706 Level 3 Est. Patient 19:36:53 CDT Alex ALVAREZ [facility] CPT-67394 Level 3 Est. Patient 12:58:15 CDT Robbie Busby MD [facility] Procedures Code Procedure Name Date Entry Date Standard Description CPT-J0696 Rocephin 1000 mg (Ceftriaxone) 17:43:43 HEAVY MOBILE EQUIPMENT OPERATOR CPT-J1040 Depo Medrol 80 mg (Methyl Prednisolone Acetate) 17:43: 43 HEAVY MOBILE EQUIPMENT OPERATOR CPT-J1100 Decadron 8mg (Dexamethasone) 17:43:42 HEAVY MOBILE EQUIPMENT OPERATOR CPT-69120 Abx/Therapy Injection 17:43:42 HEAVY MOBILE EQUIPMENT OPERATOR CPT-75646 Abx/Therapy Injection 17:43:42 HEAVY MOBILE EQUIPMENT OPERATOR CPT-J1040 Depo Medrol 80 mg (Methyl Prednisolone Acetate) 09:43: 34 HEAVY MOBILE EQUIPMENT OPERATOR CPT-J1100 Decadron 8mg (Dexamethasone) 09:43:34 HEAVY MOBILE EQUIPMENT OPERATOR CPT-J0696 Rocephin 1gm Inj Solr 09:43:34 HEAVY MOBILE EQUIPMENT OPERATOR CPT-87935 Wound Culture - LAB USE ONLY 14:00:21 CDT CPT-I/D I/D Abscess 09:16:37 CDT CPT-15045 Venipuncture Draw Fee 15:20:23 CDT CPT-51890 Microalbumin - LAB USE ONLY 16:02:19 CDT CPT-88534 CBC - LAB USE ONLY 16:02:19 CDT CPT-88768 Venipuncture Draw Fee 16:02:19 CDT CPT-G0438 Initial Annual Wellness Exam 08:10:28 CDT CPT-81477 Venipuncture Draw Fee 13:07:17 CDT CPT-G0008 Administration of Influenza Virus Vaccine 16:09:59 CDT CPT-93938 Fluzone Quadrivalent Intramuscular Suspension 0.5 ML 16: 09:59 CDT CPT-58675 Spec Collection and Handling Fee 15:05:50 CDT
--- OUTSIDE RECORDS SUMMARY | 2018-04-18 12:46 | XMS REPORT | Clinical Summary ---
Author Author Admin, AKUA Organization [facility] Address Unknown Phone Unavailable Allergies, Adverse [...] BY MOUTH EVERY 8 HOURS CLONIDINE HCL 35737511857 Active Robbie Busby MD Active CHERATUSSIN AC 100-10 MG/5ML ORAL SOLN 7.5 mL PO q 4-6 hrs PRN cough GUAIFENESIN-CODEINE 68227739259 Active Alex ALVAREZ Active AZITHROMYCIN 250 MG ORAL TABS 2 tablets PO today---then, 1 tablet PO daily x 4 more days (and 1 optional refill) AZITHROMYCIN 72745094589 Active Alex ALVAREZ Active HYDROCHLOROTHIAZIDE TABS Take one by mouth daily HYDROCHLOROTHIAZIDE TABS 87261451663 Active Alex ALVAREZ Active NORVASC 10 MG TAB 1 tablet by mouth daily AMLODIPINE BESYLATE 06090010978 No Longer Active Alex ALVAREZ Active PROTONIX 40 MG SOLR 1 po qday for acid reflux PANTOPRAZOLE SODIUM 52357697407 Active Robbie Busby MD Active IMDUR 60 MG TAB CR take 1 tab po qday for blood pressure ISOSORBIDE MONONITRATE Active Robbie Busby MD Active ISOSORBIDE DINITRATE 30 MG TABS Take one by mouth daily ISOSORBIDE DINITRATE 26275219496 No Longer Active Robbie Busby MD Active VIIBRYD 40 MG TABS take 1 tab po qday for depression. VILAZODONE HCL 79484844298 Active Robbie Busby MD Active VIIBRYD 40 MG TABS 1 TA B PO DAILY VILAZODONE HCL 87582810316 Active Robbie Busby MD Active LORATADINE 10 MG TABS 1 tablet by mouth daily for congestion and allergies. LORATADINE 63093307333 Active Robbie Busby MD Active ZITHROMAX 250 MG TAB 2 po today, then 1 po q days 2-5 AZITHROMYCIN 82595636546 No Longer Active Robbie Busby MD Active HYDROCODONE-ACETAMINOPHEN 5-325 MG TABS 1 tab by mouth BID prn back pain 2013 HYDROCODONE-ACETAMINOPHEN 82945132105 Active Robbie Busby MD Active HYDRALAZINE HCL 50 MG TABS take 1 tab po QID for high blood pressure HYDRALAZINE HCL 78191746506 Active Robbie Busby MD Active [id number]-[id number]-7 0.3 MG/24HR PTWK apply 2 patches q week for HTN CLONIDINE HCL 96010312018 Active Robbie Busby MD Active FENOFIBRATE 145 MG TABS Take one by mouth daily FENOFIBRATE 14707470148 Active Robbie Busby MD Active NITROSTAT 0.4 MG SUBL PRN NITROGLYCERIN 54237924685 Active Robbie Busby MD Active DOXAZOSIN MESYLATE 4 MG TABS Take one by mouth daily DOXAZOSIN MESYLATE 23824303249 Active Robbie Busby MD Active HYDRALAZINE HCL 25 MG TABS 1 tablet by mouth tid for hypertension HYDRALAZINE HCL 68320884605 Active Robbie Busby MD Active TOPROL XL 200 MG LD30Q-CLY Take one by mouth daily METOPROLOL SUCCINATE 88689820429 Active Robbie Busby MD Active SPIRONOLACTONE 50 MG TABS 1 tablet by mouth twice a day SPIRONOLACTONE 42502853617 Active Robbie Busby MD Active VENLAFAXINE HCL ER 150 MG [id number] Take one by mouth daily VENLAFAXINE HCL 10010886215 Active Robbie Busby MD Active LIPITOR 40 MG TABS Take one by mouth daily ATORVASTATIN CALCIUM 22702856461 Active Robbie Busby MD Active ISOSORBIDE DINITRATE 30 MG TABS Take one by mouth daily ISOSORBIDE DINITRATE 30 MG TABS 929167 ISOSORBIDE DINITRATE Inactive NORVASC 10 MG TAB 1 tablet by mouth daily NORVASC 10 MG TAB 081282 AMLODIPINE BESYLATE Inactive ZITHROMAX 250 MG TAB 2 po today, then 1 po q days 2-5 ZITHROMAX 250 MG TAB 3667390 AZITHROMYCIN Inactive Vital Signs Date Name Value [...] mg/dL Chart Maintenance: Outside labs entered on [employer] - Hematology leukocyte count, blood 8.9 10*3/mm3 hemoglobin, blood 14.0 g/dL platelet count 285 10*3/mm3 Lab Report: Basic Metabolic Panel, UADIP W/MICRO, AUTO - Chemistry protein, total urine random 2+ mg/dL Negative sodium, serum 144 mmol/L 156-584 0589/07/07 potassium, serum 3.9 mmol/L 3.5-5.2 chloride, serum [...] Panel - Chemistry sodium, serum 141 mmol/L 146-668 2866/12/05 potassium, serum 4.0 mmol/L 3.5-5.2 chloride, serum [...] mg/dL Encounters Code Encounter Date Provider Facility CPT-97670 Level 3 Est. Patient 17:08:12 CDT Alex ALVAREZ [facility] CPT-10201 Level 4 Est. Patient 17:51:38 CDT Robbie Busby MD [facility] CPT-32287 Level 4 Est. Patient 14:00:21 CDT Robbie Busby MD [facility] CPT-77704 Level 4 Est. Patient 12:46:48 CDT Robbie Busby MD [facility] CPT-89588 Level 4 Est. Patient 13:34:33 CDT Robbie Busby MD [facility] CPT-94443 Level 4 Est. Patient 16:58:28 CDT Robbie Busby MD [facility] CPT-23439 Level 3 Est. Patient 19:36:53 CDT Alex ALVAREZ [facility] CPT-71798 Level 3 Est. Patient 12:58:15 CDT Robbie Busby MD [facility] Procedures Code Procedure Name Date Entry Date Standard Description CPT-G0008 Administration of Influenza Virus Vaccine 16:09:59 CDT CPT-46704 Fluzone Quadrivalent Intramuscular Suspension 0.5 ML 16: 09:59 CDT CPT-85466 Spec Collection and Handling Fee 15:05:50 CDT
--- OUTSIDE RECORDS SUMMARY | 2018-04-18 12:46 | XMS REPORT | Clinical Summary ---
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 Desmond Diaz DO Other malignant secondary hypertension Tachycardia 785.0 Active oRber Rodríguez NEUROSCIENCE DIRECTOR NA Tachycardia, unspecified Insect bite, infected 919.5 Resolved Desmond Diaz DO Insect bite, nonvenomous, of other, multiple, and unspecified sites, infected Abscess, skin 682.9 Resolved Desmond Diaz DO Cellulitis and abscess of unspecified sites URI 465.9 Resolved Desmond Diaz DO Acute upper respiratory infections of unspecified site Hypertension 401.9 Active Rober Rodríguez NEUROSCIENCE DIRECTOR NA Unspecified essential hypertension Sinusitis - acute 461.9 [...] Hypogonadism, low testosterone 257.2 Active Erin Mai NEUROSCIENCE DIRECTOR NA Other testicular hypofunction Low back pain, chronic [...] 36.0-36.9, adult Sinusitis ICD-461.9 Inactive Emily Atwood [employer] 2017 Low back pain, acute ICD-724.2 Inactive Emily Atwood [employer] Low back pain, chronic ICD-724.2 Inactive Emily Atwood [employer] Bronchitis, acute ICD-466.0 Inactive Emily Atwood [employer] Onychomycosis, toenails ICD-110.1 Inactive Emily Atwood [employer] Dizziness ICD-780.4 Inactive Emily Atwood [employer] 2017 Folliculitis ICD-704.8 Inactive Emily Atwood [employer] Pharyngitis-Acute ICD-462 Inactive Emily Atwood [employer] Fatigue ICD-780.79 Inactive Emily Atwood [employer] 09/20 Hypertension, secondary, malignant ICD-405.09 Inactive Emily Atwood [employer] Insect bite, infected ICD-919.5 Inactive Emily Atwood [employer] Abscess, skin ICD-682.9 Inactive Emily Atwood [employer] URI ICD-465.9 Inactive Emily Atwood [employer] Sinusitis - acute ICD-461.9 Inactive Emily Atwood [employer] Acute confusion ICD-293.0 Inactive Emily Atwood [employer] Headache ICD-784.0 Inactive Emily Atwood [employer] 09/20 Back pain ICD-724.5 Inactive Emily Atwood [employer] 2017 Rib pain, right sided ICD-786.50 Inactive Emily Atwood [employer] Myalgias ICD-729.1 Inactive Emily Atwood [employer] 09/20 URI ICD-465.9 Inactive Emily Atwood [employer] Bronchitis-Acute ICD-466.0 Inactive Desmond Diaz DO Medication List Medication Instructions Start Date Stop Date Generic Name NDC Status Provider Patient Instruction MONTELUKAST SODIUM 10 MG ORAL TABLET 1 tab po daily for allergies MONTELUKAST SODIUM 18459023328 Active JONATHAN Moncada Active IMDUR 60 MG ORAL TABLET EXTENDED RELEASE 24 HOUR 1 po q day ISOSORBIDE MONONITRATE 57352520299 Active Emma Hernandez Active METOPROLOL SUCCINATE ER 200 MG ORAL TABLET EXTENDED RELEASE 24 HOUR take 1 tab po qday for high blood pressure and rapid pulse METOPROLOL SUCCINATE 06703368887 Active Robbie Busby MD Active [id number]-[id number] 0.3 MG/24HR TRANSDERMAL PATCH WEEKLY apply 2 patches q week for HTN CLONIDINE HCL 32039611912 No Longer Active Robbie Busby MD Active IMDUR 60 MG ORAL TABLET EXTENDED RELEASE 24 HOUR take 1 tab po qday for blood pressure ISOSORBIDE MONONITRATE 48897996685 No Longer Active Robbie Busby MD Active TEMAZEPAM 15 MG ORAL CAPSULE 1 TAB PO Q HS TEMAZEPAM 88825035798 No Longer Active Robbie Busby MD Active TOPIRAMATE 50 MG ORAL TABLET 1 po BID for migraines TOPIRAMATE 29920786018 No Longer Active Robbie Busby MD Active CYCLOBENZAPRINE HCL 10 MG ORAL TABLET 1 tablet by mouth three times daily as needed for muscle spasm/pain CYCLOBENZAPRINE HCL 31183987385 No Longer Active Robbie Busby MD Active TOPROL XL 200 MG ORAL TABLET EXTENDED RELEASE 24 HOUR Take one by mouth daily METOPROLOL SUCCINATE 76007216801 No Longer Active Robbie Busby MD Active METFORMIN HCL 500 MG ORAL TABLET 1 tablet by mouth daily for diabetes type 2 METFORMIN HCL 57208274733 Active Robbie Busby MD Active SINGULAIR 10 MG ORAL TABLET 1 po qday for allergies. MONTELUKAST SODIUM 04856428558 No Longer Active Robbie Busby MD Active PREDNISONE 20 MG ORAL TABLET two tabs by mouth today, then one tab by mouth days two and three PREDNISONE 13131728444 No Longer Active oRbbie Busby MD Active AZITHROMYCIN 250 MG ORAL TABLET 2 po qd x 1 day, then 1 po qd x 4 days 09/20 AZITHROMYCIN 73525443641 No Longer Active Desmond Diaz DO Active TOPIRAMATE 50 MG ORAL TABLET take 1 tab po BID for migraines. TOPIRAMATE 09599047590 No Longer Active Desmond Diaz DO Active CYCLOBENZAPRINE HCL 10 MG ORAL TABLET 1 po TID PRN muscle spasm/pain for 10 days CYCLOBENZAPRINE HCL 04706911766 No Longer Active Desmond Diaz DO Active GUAIFENESIN ER 600 MG ORAL TABLET EXTENDED RELEASE 12 HOUR 1 tab po q am 2016 GUAIFENESIN 14019634409 No Longer Active Robbie Busby MD Active DIVALPROEX SODIUM ER 500 MG ORAL TABLET EXTENDED RELEASE 24 HOUR Once daily DIVALPROEX SODIUM 92297072801 Active Robbie Busby MD Active DEPO-TESTOSTERONE 200 MG/ML INTRAMUSCULAR SOLUTION 1 IM Injections every 2 weeks for low testosterone TESTOSTERONE CYPIONATE 46207678632 Active Zulema Blank LPN Active FLUTICASONE PROPIONATE 50 MCG/ACT NASAL SUSPENSION 2 sprays per nostril bid for 1 week, then 1 spray bid FLUTICASONE PROPIONATE 34646129088 Active Rober Rodríguez NEUROSCIENCE DIRECTOR NA Active HYDRALAZINE HCL 25 MG ORAL TABLET Take 1 tab BID. HYDRALAZINE HCL 38990183292 Active Rober Rodríguez NEUROSCIENCE DIRECTOR NA Active VITAMIN D3 44558 UNIT ORAL TABLET 2 po weekly CHOLECALCIFEROL 94645151878 Active Robbie Busby MD Active OXYCODONE HCL ER 10 MG ORAL TABLET ER 12 HOUR ABUSE-DETERRENT 1 tab po 3 times qd. OXYCODONE HCL 36788550222 Active Robbie Busby MD Active NITROSTAT 0.4 MG SUBLINGUAL TABLET SUBLINGUAL PRN NITROGLYCERIN 06434395074 No Longer Active Robbie Busby MD Active LORATADINE 10 MG ORAL TABLET 1 tablet by mouth daily for congestion and allergies. LORATADINE 33935634727 No Longer Active Robbie Busby MD Active FLONASE 50 MCG/ACT NASAL SUSPENSION 1 spray each nostril twice daily for allergies and runny nose FLUTICASONE PROPIONATE 93017258892 No Longer Active Robbie Busby MD Active FIORICET 50-300-40 MG ORAL CAPSULE take 1 tab po qday prn migraines. [id number] 19161444098 No Longer Active Robbie Busby MD Active VITAMIN D3 66038 UNIT ORAL CAPSULE 2 CAPS PO WEEKLY CHOLECALCIFEROL 06718490441 No Longer Active Robbie Busby MD Active CYCLOBENZAPRINE HCL 10 MG ORAL TABLET 1 tablet by mouth three times daily as needed for muscle spasm/pain for 10 days CYCLOBENZAPRINE HCL 01272875182 No Longer Active Robbie Busby MD Active PREDNISONE 20 MG ORAL TABLET take 3 tabs daily for 3 days, 2 tabs daily for 3 days, 1 tab daily for 3 days, 1/2 tab daily for 4 days PREDNISONE 61375656376 No Longer Active Erin Arell NEUROSCIENCE DIRECTOR NA Active CLONIDINE HCL 0.2 MG ORAL TABLET 1 TAB BY MOUTH EVERY 8 HOURS CLONIDINE HCL 50834246351 No Longer Active Erin Arell NEUROSCIENCE DIRECTOR NA Active MECLIZINE HCL 25 MG ORAL TABLET one 4 times a day as needed for dizziness MECLIZINE HCL 45159862679 No Longer Active Erin Arell NEUROSCIENCE DIRECTOR NA Active SPIRONOLACTONE 25 MG ORAL TABLET 4 tablets by mouth daily SPIRONOLACTONE 09809381838 No Longer Active Erin Arell NEUROSCIENCE DIRECTOR NA Active LEVAQUIN 500 MG ORAL TABLET 1 tablet by mouth daily for 7 days LEVOFLOXACIN 76200272253 No Longer Active Erin Arell NEUROSCIENCE DIRECTOR NA Active BACTRIM DS 800-160 MG ORAL TABLET 1 tab by mouth twice daily 2015 TRIMETHOPRIM-SULFAMETHOXAZOLE 28274164371 No Longer Active Robbie Busby MD Active HYDRALAZINE HCL 50 MG ORAL TABLET TWO BY MOUTH THREE TIMES DAILY HYDRALAZINE HCL 11976598505 No Longer Active Jillina Frazell NEUROSCIENCE DIRECTOR NA Active HYDROCODONE-ACETAMINOPHEN 5-325 MG ORAL TABLET 1 tab by mouth BID prn back pain HYDROCODONE-ACETAMINOPHEN 36682686958 No Longer Active Jillina Frazell NEUROSCIENCE DIRECTOR NA Active HYDROCHLOROTHIAZIDE TABLET Take one by mouth daily HYDROCHLOROTHIAZIDE TABS 62486064026 No Longer Active Jillina Frazell NEUROSCIENCE DIRECTOR NA Active LAMISIL 125 MG ORAL PACKET 1 TAB PO DAILY TERBINAFINE HCL 11860635248 No Longer Active Jillina Frazell NEUROSCIENCE DIRECTOR NA Active TRILEPTAL 150 MG ORAL TABLET 1 TAB PO Q HS OXCARBAZEPINE 39301073420 No Longer Active Jillina Frazell NEUROSCIENCE DIRECTOR NA Active BETADINE 10 % EXTERNAL SOLUTION wash with solution to treat follicultis 07/29 POVIDONE-IODINE 57019473004 No Longer Active Rober Rodríguez APRN Active NYSTATIN 267640 UNIT/ML MOUTH/THROAT SUSPENSION 5mL po QID x 10 days NYSTATIN 07227465707 No Longer Active Erin Mai APRN Active PREDNISONE 20 MG ORAL TABLET 1 tablet twice daily for 2 days, then 1 tablet once daily for 2 days PREDNISONE 06848141558 No Longer Active Robbie Busby MD Active CEFDINIR 300 MG ORAL CAPSULE Take 1 cap po bid x 10 days CEFDINIR 08248607667 No Longer Active Robbie Busby MD Active AMLODIPINE BESYLATE 10 MG ORAL TABLET 1 tablet by mouth daily AMLODIPINE BESYLATE 01856596658 Active Robbie Busby MD Active CARVEDILOL 25 MG ORAL TABLET 1 & 1/2 TAB po BID CARVEDILOL 55189811308 Active Robbie Busby MD Active NEXIUM 40 MG ORAL CAPSULE DELAYED RELEASE 1 cap by mouth daily ESOMEPRAZOLE MAGNESIUM 46046608305 Active Robbie Busby MD Active PROTONIX 40 MG INTRAVENOUS SOLUTION RECONSTITUTED 1 po qday for acid reflux PANTOPRAZOLE SODIUM 16139277385 No Longer Active Gali Raida Active KEFLEX 500 MG ORAL CAPSULE 1 po TID x 10 days CEPHALEXIN 31918964553 No Longer Active Robbie Busby MD Active ALPRAZOLAM 2 MG ORAL TABLET 1 TAB PO BID ALPRAZOLAM 64824640696 Active Robbie Busby MD Active FENOFIBRATE 145 MG ORAL TABLET Take one by mouth daily FENOFIBRATE 45551719227 No Longer Active Robbie Busby MD Active SPIRONOLACTONE 50 MG ORAL TABLET 1 tablet by mouth twice a day SPIRONOLACTONE 78931852823 No Longer Active Robbie Busby MD Active HYDRALAZINE HCL 25 MG ORAL TABLET 1 tablet by mouth tid for hypertension 2013 HYDRALAZINE HCL 52662183788 No Longer Active Robbie Busby MD Active VIIBRYD 40 MG ORAL TABLET take 1 tab po qday for depression. 2014 VILAZODONE HCL 55875428510 No Longer Active Robbie Busby MD Active TERBINAFINE HCL 250 MG ORAL TABLET 1 tab po qday for foot infection TERBINAFINE HCL 65138785896 No Longer Active Robibe Busby MD Active GABAPENTIN 300 MG ORAL CAPSULE 1 po q hs for nerve pain GABAPENTIN 52165664167 Active Robbie Busby MD Active CHERATUSSIN AC 100-10 MG/5ML ORAL SOLUTION 7.5 mL PO q 4-6 hrs PRN cough 2014 GUAIFENESIN-CODEINE 93134986372 No Longer Active Robbie Busby MD Active AZITHROMYCIN 250 MG ORAL TABLET 2 tablets PO today---then, 1 tablet PO daily x 4 more days (and 1 optional refill) AZITHROMYCIN 29769731763 No Longer Active Robbie Busby MD Active NORVASC 10 MG ORAL TABLET 1 tablet by mouth daily AMLODIPINE BESYLATE 84179893919 No Longer Active Alex ALVAREZ Active ISOSORBIDE DINITRATE 30 MG ORAL TABLET Take one by mouth daily ISOSORBIDE DINITRATE 81694520399 No Longer Active Robbie Busby MD Active VIIBRYD 40 MG ORAL TABLET 1 TA B PO DAILY VILAZODONE HCL 02627349646 Active Robbie Busby MD Active ZITHROMAX 250 MG ORAL TABLET 2 po today, then 1 po q days 2-5 AZITHROMYCIN 69140702285 No Longer Active Robbie Busby MD Active DOXAZOSIN MESYLATE 4 MG ORAL TABLET Take one by mouth daily DOXAZOSIN MESYLATE 25804131428 Active Robbie Busby MD Active VENLAFAXINE HCL ER 150 MG ORAL TABLET EXTENDED RELEASE 24 HOUR Take one by mouth daily VENLAFAXINE HCL 21542956669 Active Robbie Busby MD Active LIPITOR 40 MG ORAL TABLET Take one by mouth daily ATORVASTATIN CALCIUM 28344734673 Active Robbie Busby MD Active ISOSORBIDE DINITRATE 30 MG ORAL TABLET Take one by mouth daily ISOSORBIDE DINITRATE 30 MG ORAL TABLET 501455 ISOSORBIDE DINITRATE Inactive NORVASC 10 MG ORAL TABLET 1 tablet by mouth daily NORVASC 10 MG ORAL TABLET 580102 AMLODIPINE BESYLATE Inactive AZITHROMYCIN 250 MG ORAL TABLET 2 tablets PO today---then, 1 tablet PO daily x 4 more days (and 1 optional refill) AZITHROMYCIN 250 MG ORAL TABLET 578530 AZITHROMYCIN Inactive CHERATUSSIN AC 100-10 MG/5ML ORAL SOLUTION 7.5 mL PO q 4-6 hrs PRN cough 2014 CHERATUSSIN AC 100-10 MG/5ML ORAL SOLUTION 039375 GUAIFENESIN-CODEINE Inactive VIIBRYD 40 MG ORAL TABLET take 1 tab po qday for depression. 2014 VIIBRYD 40 MG ORAL TABLET VILAZODONE HCL Inactive HYDRALAZINE HCL 25 MG ORAL TABLET 1 tablet by mouth tid for hypertension 2013 HYDRALAZINE HCL 25 MG ORAL TABLET 896652 HYDRALAZINE HCL Inactive SPIRONOLACTONE 50 MG ORAL TABLET 1 tablet by mouth twice a day SPIRONOLACTONE 50 MG ORAL TABLET 674914 SPIRONOLACTONE Inactive FENOFIBRATE 145 MG ORAL TABLET Take one by mouth daily FENOFIBRATE 145 MG ORAL TABLET 856351 FENOFIBRATE Inactive PROTONIX 40 MG INTRAVENOUS SOLUTION RECONSTITUTED 1 po qday for acid reflux PROTONIX 40 MG INTRAVENOUS SOLUTION RECONSTITUTED 127195 PANTOPRAZOLE SODIUM Inactive CEFDINIR 300 MG ORAL CAPSULE Take 1 cap po bid x 10 days CEFDINIR 300 MG ORAL CAPSULE 569160 CEFDINIR Inactive PREDNISONE 20 MG ORAL TABLET 1 tablet twice daily for 2 days, then 1 tablet once daily for 2 days PREDNISONE 20 MG ORAL TABLET 492326 PREDNISONE Inactive NYSTATIN 762400 UNIT/ML MOUTH/THROAT SUSPENSION 5mL po QID x 10 days NYSTATIN 445476 UNIT/ML MOUTH/THROAT SUSPENSION 575721 NYSTATIN Inactive BETADINE 10 % EXTERNAL SOLUTION wash with solution to treat follicultis 07/29 BETADINE 10 % EXTERNAL SOLUTION 0098342 POVIDONE-IODINE Inactive TRILEPTAL 150 MG ORAL TABLET 1 TAB PO Q HS TRILEPTAL 150 MG ORAL TABLET 953799 OXCARBAZEPINE Inactive LAMISIL 125 MG ORAL PACKET 1 TAB PO DAILY LAMISIL 125 MG ORAL PACKET TERBINAFINE HCL Inactive HYDROCHLOROTHIAZIDE TABLET Take one by mouth daily HYDROCHLOROTHIAZIDE TABLET HYDROCHLOROTHIAZIDE TABS Inactive HYDROCODONE-ACETAMINOPHEN 5-325 MG ORAL TABLET 1 tab by mouth BID prn back pain HYDROCODONE-ACETAMINOPHEN 5-325 MG ORAL TABLET 421345 HYDROCODONE-ACETAMINOPHEN Inactive HYDRALAZINE HCL 50 MG ORAL TABLET TWO BY MOUTH THREE TIMES DAILY HYDRALAZINE HCL 50 MG ORAL TABLET 630241 HYDRALAZINE HCL Inactive LEVAQUIN 500 MG ORAL TABLET 1 tablet by mouth daily for 7 days LEVAQUIN 500 MG ORAL TABLET 425005 LEVOFLOXACIN Inactive SPIRONOLACTONE 25 MG ORAL TABLET 4 tablets by mouth daily SPIRONOLACTONE 25 MG ORAL TABLET 977342 SPIRONOLACTONE Inactive MECLIZINE HCL 25 MG ORAL TABLET one 4 times a day as needed for dizziness MECLIZINE HCL 25 MG ORAL TABLET 234287 MECLIZINE HCL Inactive CLONIDINE HCL 0.2 MG ORAL TABLET 1 TAB BY MOUTH EVERY 8 HOURS CLONIDINE HCL 0.2 MG ORAL TABLET 581900 CLONIDINE HCL Inactive CYCLOBENZAPRINE HCL 10 MG ORAL TABLET 1 tablet by mouth three times daily as needed for muscle spasm/pain for 10 days CYCLOBENZAPRINE HCL 10 MG ORAL TABLET 296421 CYCLOBENZAPRINE HCL Inactive VITAMIN D3 79229 UNIT ORAL CAPSULE 2 CAPS PO WEEKLY VITAMIN D3 79098 UNIT ORAL CAPSULE CHOLECALCIFEROL Inactive FIORICET 50-300-40 MG ORAL CAPSULE take 1 tab po qday prn migraines. FIORICET 50-300-40 MG ORAL CAPSULE 693913 BUTALBITAL-APAP- CAFFEINE Inactive FLONASE 50 MCG/ACT NASAL SUSPENSION 1 spray each nostril twice daily for allergies and runny nose FLONASE 50 MCG/ACT NASAL SUSPENSION 7138324 FLUTICASONE PROPIONATE Inactive LORATADINE 10 MG ORAL TABLET 1 tablet by mouth daily for congestion and allergies. LORATADINE 10 MG ORAL TABLET 351650 LORATADINE Inactive NITROSTAT 0.4 MG SUBLINGUAL TABLET SUBLINGUAL PRN NITROSTAT 0.4 MG SUBLINGUAL TABLET SUBLINGUAL 390577 NITROGLYCERIN Inactive GUAIFENESIN ER 600 MG ORAL TABLET EXTENDED RELEASE 12 HOUR 1 tab po q am 2016 GUAIFENESIN ER 600 MG ORAL TABLET EXTENDED RELEASE 12 HOUR GUAIFENESIN Inactive CYCLOBENZAPRINE HCL 10 MG ORAL TABLET 1 po TID PRN muscle spasm/pain for 10 days CYCLOBENZAPRINE HCL 10 MG ORAL TABLET 209263 CYCLOBENZAPRINE HCL Inactive TOPIRAMATE 50 MG ORAL TABLET take 1 tab po BID for migraines. TOPIRAMATE 50 MG ORAL TABLET 827675 TOPIRAMATE Inactive PREDNISONE 20 MG ORAL TABLET two tabs by mouth today, then one tab by mouth days two and three PREDNISONE 20 MG ORAL TABLET 282209 PREDNISONE Inactive TOPROL XL 200 MG ORAL TABLET EXTENDED RELEASE 24 HOUR Take one by mouth daily TOPROL XL 200 MG ORAL TABLET EXTENDED RELEASE 24 HOUR METOPROLOL SUCCINATE Inactive CYCLOBENZAPRINE HCL 10 MG ORAL TABLET 1 tablet by mouth three times daily as needed for muscle spasm/pain CYCLOBENZAPRINE HCL 10 MG ORAL TABLET 768784 CYCLOBENZAPRINE HCL Inactive TOPIRAMATE 50 MG ORAL TABLET 1 po BID for migraines TOPIRAMATE 50 MG ORAL TABLET 094259 TOPIRAMATE Inactive TEMAZEPAM 15 MG ORAL CAPSULE 1 TAB PO Q HS TEMAZEPAM 15 MG ORAL CAPSULE 198620 TEMAZEPAM Inactive IMDUR 60 MG ORAL TABLET EXTENDED RELEASE 24 HOUR take 1 tab po qday for blood pressure IMDUR 60 MG ORAL TABLET EXTENDED RELEASE 24 HOUR ISOSORBIDE MONONITRATE Inactive [id number] 0.3 MG/24HR TRANSDERMAL PATCH WEEKLY apply 2 patches q week for HTN [id number]-0 0.3 MG/24HR TRANSDERMAL PATCH WEEKLY 396663 CLONIDINE HCL Inactive ZITHROMAX 250 MG ORAL TABLET 2 po today, then 1 po q days 2-5 ZITHROMAX 250 MG ORAL TABLET 108384 AZITHROMYCIN Inactive TERBINAFINE HCL 250 MG ORAL TABLET 1 tab po qday for foot infection TERBINAFINE HCL 250 MG ORAL TABLET 775038 TERBINAFINE HCL Inactive KEFLEX 500 MG ORAL CAPSULE 1 po TID x 10 days KEFLEX 500 MG ORAL CAPSULE 576450 CEPHALEXIN Inactive BACTRIM DS 800-160 MG ORAL TABLET 1 tab by mouth twice daily 2015 BACTRIM DS 800-160 MG ORAL TABLET 431073 TRIMETHOPRIM- SULFAMETHOXAZOLE Inactive PREDNISONE 20 MG ORAL TABLET take 3 tabs daily for 3 days, 2 tabs daily for 3 days, 1 tab daily for 3 days, 1/2 tab daily for 4 days PREDNISONE 20 MG ORAL TABLET 616710 PREDNISONE Inactive AZITHROMYCIN 250 MG ORAL TABLET 2 po qd x 1 day, then 1 po qd x 4 days 09/20 AZITHROMYCIN 250 MG ORAL TABLET 008122 AZITHROMYCIN Inactive SINGULAIR 10 MG ORAL TABLET 1 po qday for allergies. SINGULAIR 10 MG ORAL TABLET 577562 MONTELUKAST SODIUM Inactive Advance Directives Directive Description [...] AUTO - Chemistry sodium, serum 142 mmol/L 123-452 3199/07/17 carbon dioxide, venous blood 28.2 mmol/L 21.0-32.0 [...] Panel - Chemistry sodium, serum 141 mmol/L 179-349 5792/02/13 carbon dioxide, venous blood 23.9 mmol/L 21.0-32.0 [...] 6.9 % 4.3-6.0 sodium, serum 139 mmol/L 032-024 2202/01/04 potassium, serum 3.9 mmol/L 3.5-5.2 chloride, serum [...] 1.80 ng/mL 0.00-4.00 Lab Report: VITAMIN D, 25-HYDROXY/89751 - Chemistry vitamin D 25-hydroxy, serum 25 ng/mL 30-100 Encounters Code Encounter Date Provider Facility CPT-73328 Level 3 Est. Patient 16:04:17 CDT Robbie Busby MD [facility] CPT-01298 Level 4 Est. Patient 09:50:01 BACKEND DEVELOPER Robbie Busby MD [facility] CPT-31221 Level 4 Est. Patient 09:42:08 BACKEND DEVELOPER Robbie Busby MD [facility] CPT-05522 Level 4 Est. Patient 13:07:39 BACKEND DEVELOPER Robbie Busby MD [facility] CPT-86733 Level 4 Est. Patient 15:23:44 BACKEND DEVELOPER Desmond Diaz DO [facility] CPT-89889 Level 3 Est. Patient 15:40:49 CDT Robbie Busby MD [facility] CPT-93710 Level 4 Est. Patient 15:18:19 CDT Robbie Busby MD [facility] CPT-56121 Level 3 Est. Patient 09:00:37 CDT Rober Rodolfoneha [facility] CPT-76347 Level 3 Est. Patient 16:07:10 CDT Robbie Busby MD [facility] CPT-85733 Level 4 Est. Patient 11:56:16 CDT Erin Miguelzane [facility] CPT-28427 Level 3 Est. Patient 17:48:02 CDT Robbie Busby MD [facility] CPT-06664 Level 4 Est. Patient 12:00:49 BACKEND DEVELOPER Rober Rodríguez [facility] CPT-40239 Level 3 Est. Patient 09:16:37 CDT Robbie Busby MD [facility] CPT-81306 Level 3 Est. Patient 19:38:43 CDT Robbie Busby MD [facility] CPT-98865 Level 3 Est. Patient 11:53:38 CDT Robbie Busby MD [facility] CPT-70012 Level 4 Est. Patient 12:52:22 CDT Rober Rodríguez [facility] CPT-68453 Level 4 Est. Patient 22:55:17 CDT Robbie Busby MD [facility] CPT-35097 Level 3 Est. Patient 12:38:24 CDT Desmond Diaz DO [facility] CPT-84522 Level 4 Est. Patient 11:25:03 BACKEND DEVELOPER Robbie Busby MD [facility] CPT-82539 Level 4 Est. Patient 14:50:10 CDT Robbie Busby MD [facility] CPT-18793 Level 4 Est. Patient 23:30:43 CDT Robbie Busby MD [facility] CPT-57378 Level 4 Est. Patient 10:30:43 CDT Robbie Busby MD [facility] CPT-25539 Level 3 Est. Patient 17:08:12 CDT Alex ALVAREZ [facility] CPT-45390 Level 4 Est. Patient 17:51:38 CDT Robbie Busby MD [facility] CPT-44818 Level 4 Est. Patient 14:00:21 CDT Robbie Busby MD [facility] CPT-68695 Level 4 Est. Patient 12:46:48 CDT Robbie Busby MD [facility] CPT-72331 Level 4 Est. Patient 13:34:33 CDT Robbie Busby MD [facility] CPT-19788 Level 4 Est. Patient 16:58:28 CDT Robbie Busby MD [facility] CPT-69486 Level 3 Est. Patient 19:36:[address] [facility] CPT-26791 Level 3 Est. Patient 12:58:15 CDT Robbie Busby MD [facility] Procedures Code Procedure Name Date Entry Date Standard Description CPT-J1100 Decadron 8mg (Dexamethasone) 16:04:17 CDT CPT-J1040 Depo Medrol 80 mg (Methyl Prednisolone Acetate) 16:04: 17 CDT CPT-J1071 Depo Testosterone 200mg 08:56:46 CDT CPT-61343 Abx/Therapy Injection 08:56:45 CDT CPT-J1071 Depo Testosterone 200mg 08:26:27 CDT CPT-93998 Abx/Therapy Injection 08:26:27 CDT CPT-J1071 Depo Testosterone 200mg 10:27:10 CDT CPT-53754 Abx/Therapy Injection 10:27:10 CDT CPT-J1071 Depo Testosterone 200mg 16:10:29 BACKEND DEVELOPER CPT-60393 Abx/Therapy Injection 16:10:29 BACKEND DEVELOPER CPT-J1071 Depo Testosterone 200mg 16:13:47 BACKEND DEVELOPER CPT-25299 Abx/Therapy Injection 16:13:46 BACKEND DEVELOPER CPT-J1071 Depo Testosterone 200mg 15:33:58 BACKEND DEVELOPER CPT-57095 Abx/Therapy Injection 15:33:58 BACKEND DEVELOPER CPT-J1071 Depo Testosterone 200mg 09:38:36 BACKEND DEVELOPER CPT-47662 Abx/Therapy Injection 09:38:36 BACKEND DEVELOPER CPT-J1071 Depo Testosterone 200mg 10:22:56 BACKEND DEVELOPER CPT-27891 Abx/Therapy Injection 10:22:56 BACKEND DEVELOPER CPT-J1071 Depo Testosterone 200mg 15:40:23 CDT CPT-20574 Abx/Therapy Injection 15:40:23 CDT CPT-J1071 Depo Testosterone 200mg 14:20:43 CDT CPT-08083 Abx/Therapy Injection 14:20:43 CDT CPT-J1071 Depo Testosterone 200mg 14:17:22 CDT CPT-92712 Abx/Therapy Injection 14:17:22 CDT CPT-J1071 Depo Testosterone 200mg 09:03:53 CDT CPT-93261 Abx/Therapy Injection 09:03:53 CDT CPT-G0439 Subsequent Annual Wellness Exam 16:47:44 CDT CPT-J1071 Depo Testosterone 200mg 09:06:28 CDT CPT-06233 Abx/Therapy Injection 09:06:28 CDT CPT-J1071 Depo Testosterone 200mg 08:30:01 CDT CPT-05525 Abx/Therapy Injection 08:30:01 CDT CPT-J1071 Depo Testosterone 200mg 08:24:00 CDT CPT-55557 Abx/Therapy Injection 08:24:00 CDT CPT-32080 Venipuncture Draw Fee 14:39:06 CDT CPT-76569 Ribs unilateral 2V - XRAY USE ONLY 12:10:11 CDT CPT-40657 First Vx - Ix admin for Medicare patients 16:32:53 CDT CPT-94275 Boostrix Intramuscular Suspension 5-2.5-18.5 16:32:53 CDT CPT-36355 TB Skin Test 11:42:28 CDT CPT-56325 Tdap 7yrs or > 11:42:28 CDT CPT-J0696 Rocephin 1000 mg (Ceftriaxone) 17:43:43 BACKEND DEVELOPER CPT-J1040 Depo Medrol 80 mg (Methyl Prednisolone Acetate) 17:43: 43 BACKEND DEVELOPER CPT-J1100 Decadron 8mg (Dexamethasone) 17:43:42 BACKEND DEVELOPER CPT-64252 Abx/Therapy Injection 17:43:42 BACKEND DEVELOPER CPT-67186 Abx/Therapy Injection 17:43:42 BACKEND DEVELOPER CPT-J1040 Depo Medrol 80 mg (Methyl Prednisolone Acetate) 09:43: 34 BACKEND DEVELOPER CPT-J1100 Decadron 8mg (Dexamethasone) 09:43:34 BACKEND DEVELOPER CPT-J0696 Rocephin 1gm Inj Solr 09:43:34 BACKEND DEVELOPER CPT-51491 Wound Culture - LAB USE ONLY 14:00:21 CDT CPT-I/D I/D Abscess 09:16:37 CDT CPT-89961 Venipuncture Draw Fee 15:20:23 CDT CPT-34232 Microalbumin - LAB USE ONLY 16:02:19 CDT CPT-17489 CBC - LAB USE ONLY 16:02:19 CDT CPT-84269 Venipuncture Draw Fee 16:02:19 CDT CPT-G0438 Initial Annual Wellness Exam 08:10:28 CDT CPT-25831 Venipuncture Draw Fee 13:07:17 CDT CPT-G0008 Administration of Influenza Virus Vaccine 16:09:59 CDT CPT-18404 Fluzone Quadrivalent Intramuscular Suspension 0.5 ML 16: 09:59 CDT CPT-66545 Spec Collection and Handling Fee 15:05:50 CDT
--- OUTSIDE RECORDS SUMMARY | 2018-04-18 12:47 | XMS REPORT | Clinical Summary ---
Author Author Admin, AKUA Organization [facility] Address Unknown Phone Unavailable Allergies, Adverse Reactions, [...] III 585.3 Active Ca Garcia [facility] Chronic kidney disease, Stage III (moderate) C V A / Stroke Active Robbie Busby MD Myocardial Infarction: Active Robbie Busby MD Acute myocardial infarction, unspecified site, initial episode of care ( History of) Sleep apnea, chronic 780.57 Active Erin Garsia DAMPER FITTER Unspecified sleep apnea Continuous positive airway pressure rx V46.2 Active Erin Garsia [employer]PER FITTER Other dependence on machines, 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 Fatigue 780.79 Resolved Desmond Diaz DO Other malaise and fatigue Hypertension, secondary, 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0 Active Gali Nergo Routine general medical examination at a health [...] Hypogonadism, low testosterone 257.2 Active Erin Garsia [employer]PER FITTER Other testicular hypofunction Low back pain, chronic 724.2 Active Robbie Busby MD Lumbago Bronchitis-Acute 466.0 Inactive Desmond Howell Joe DO Acute bronchitis Polydipsia 783.5 Active Desmond Dante Joe DO Polydipsia Sinusitis ICD-461.9 Inactive Emily Atwood BUILDING CONSTRUCTION ESTIMATOR 2017 Low back pain, acute ICD-724.2 Inactive Emily Atwood BUILDING CONSTRUCTION ESTIMATOR Low back pain, chronic ICD-724.2 Inactive Emily Atwood BUILDING CONSTRUCTION ESTIMATOR Bronchitis, acute ICD-466.0 Inactive Emily Atwood BUILDING CONSTRUCTION ESTIMATOR Onychomycosis, toenails ICD-110.1 Inactive Emily Atwood BUILDING CONSTRUCTION ESTIMATOR Dizziness ICD-780.4 Inactive Emily Atwood BUILDING CONSTRUCTION ESTIMATOR 2017 Folliculitis ICD-704.8 Inactive Emily Atwood BUILDING CONSTRUCTION ESTIMATOR Pharyngitis-Acute ICD-462 Inactive Emily Atwood BUILDING CONSTRUCTION ESTIMATOR Fatigue ICD-780.79 Inactive Emily Atwood BUILDING CONSTRUCTION ESTIMATOR 09/20 Hypertension, secondary, malignant ICD-405.09 Inactive Emily Atwood BUILDING CONSTRUCTION ESTIMATOR Insect bite, infected ICD-919.5 Inactive Emily Atwood BUILDING CONSTRUCTION ESTIMATOR Abscess, skin ICD-682.9 Inactive Emily Atwood BUILDING CONSTRUCTION ESTIMATOR URI ICD-465.9 Inactive Emily Atwood BUILDING CONSTRUCTION ESTIMATOR Sinusitis - acute ICD-461.9 Inactive Emily Atwood BUILDING CONSTRUCTION ESTIMATOR Acute confusion ICD-293.0 Inactive Emily Atwood BUILDING CONSTRUCTION ESTIMATOR Headache ICD-784.0 Inactive Emily Atwood BUILDING CONSTRUCTION ESTIMATOR 09/20 Back pain ICD-724.5 Inactive Emily Atwood BUILDING CONSTRUCTION ESTIMATOR 2017 Rib pain, right sided ICD-786.50 Inactive Emily Atwood BUILDING CONSTRUCTION ESTIMATOR Myalgias ICD-729.1 Inactive Emily Atwood BUILDING CONSTRUCTION ESTIMATOR 09/20 URI ICD-465.9 Inactive Emily Atwood TANNA Bronchitis-Acute ICD-466.0 Inactive Desmond Diaz DO Medication List Medication Instructions Start Date Stop Date Generic Name ND Status Provider Patient Instruction CYCLOBENZAPRINE HCL 10 MG ORAL TABLET 1 tablet by mouth three times daily as needed for muscle spasm/pain CYCLOBENZAPRINE HCL 97532073622 Active Robbie Busby MD Active METFORMIN HCL 500 MG ORAL TABLET 1 tablet by mouth daily for diabetes type 2 METFORMIN HCL 56469693482 Active Robbie Busby MD Active SINGULAIR 10 MG ORAL TABLET 1 po qday for allergies. MONTELUKAST SODIUM 71986129945 Active Robbie Busby MD Active PREDNISONE 20 MG ORAL TABLET two tabs by mouth today, then one tab by mouth days two and three PREDNISONE 21822515916 No Longer Active Robbie Busby MD Active TOPIRAMATE 50 MG ORAL TABLET 1 po BID for migraines TOPIRAMATE 39207598004 Active JONATHAN Moncada Active AZITHROMYCIN 250 MG ORAL TABLET 2 po qd x 1 day, then 1 po qd x 4 days 09/20 AZITHROMYCIN 54797908839 No Longer Active Desmond Diaz DO Active TOPIRAMATE 50 MG ORAL TABLET take 1 tab po BID for migraines. TOPIRAMATE 92461537467 No Longer Active Desmond Diaz DO Active CYCLOBENZAPRINE HCL 10 MG ORAL TABLET 1 po TID PRN muscle spasm/pain for 10 days CYCLOBENZAPRINE HCL 31647395806 No Longer Active Desmond Diaz DO Active GUAIFENESIN ER 600 MG ORAL TABLET EXTENDED RELEASE 12 HOUR 1 tab po q am 2016 GUAIFENESIN 81458789488 No Longer Active Robbie Busby MD Active DIVALPROEX SODIUM ER 500 MG ORAL TABLET EXTENDED RELEASE 24 HOUR Once daily DIVALPROEX SODIUM 23864964334 Active Robbie Busby MD Active DEPO-TESTOSTERONE 200 MG/ML INTRAMUSCULAR SOLUTION 1 IM Injections every 2 weeks for low testosterone TESTOSTERONE CYPIONATE 58277014936 Active Zulema Blank LPN Active FLUTICASONE PROPIONATE 50 MCG/ACT NASAL SUSPENSION 2 sprays per nostril bid for 1 week, then 1 spray bid FLUTICASONE PROPIONATE 20624836717 Active Rober Rodríguez APRN Active HYDRALAZINE HCL 25 MG ORAL TABLET Take 1 tab BID. HYDRALAZINE HCL 22399818653 Active Rober Rodríguez APRN Active VITAMIN D3 38779 UNIT ORAL TABLET 2 po weekly CHOLECALCIFEROL 38684172978 Active Robbie Busby MD Active OXYCODONE HCL ER 10 MG ORAL TABLET ER 12 HOUR ABUSE-DETERRENT 1 tab po 3 times qd. OXYCODONE HCL 17597612080 Active Robbie Busby MD Active NITROSTAT 0.4 MG SUBLINGUAL TABLET SUBLINGUAL PRN NITROGLYCERIN 31760875266 No Longer Active Robbie Busby MD Active LORATADINE 10 MG ORAL TABLET 1 tablet by mouth daily for congestion and allergies. LORATADINE 37303437064 No Longer Active Robbie Busby MD Active FLONASE 50 MCG/ACT NASAL SUSPENSION 1 spray each nostril twice daily for allergies and runny nose FLUTICASONE PROPIONATE 46190886406 No Longer Active Robbie Busby MD Active FIORICET 50-300-40 MG ORAL CAPSULE take 1 tab po qday prn migraines. [id number]-[id number] 57429747240 No Longer Active Robbie Busby MD Active VITAMIN D3 97740 UNIT ORAL CAPSULE 2 CAPS PO WEEKLY CHOLECALCIFEROL 03854589930 No Longer Active Robbie Busby MD Active CYCLOBENZAPRINE HCL 10 MG ORAL TABLET 1 tablet by mouth three times daily as needed for muscle spasm/pain for 10 days CYCLOBENZAPRINE HCL 40083897434 No Longer Active Robbie Busby MD Active PREDNISONE 20 MG ORAL TABLET take 3 tabs daily for 3 days, 2 tabs daily for 3 days, 1 tab daily for 3 days, 1/2 tab daily for 4 days PREDNISONE 13497866483 No Longer Active Erin Garsia APRN Active CLONIDINE HCL 0.2 MG ORAL TABLET 1 TAB BY MOUTH EVERY 8 HOURS CLONIDINE HCL 91748514599 No Longer Active Erin Garsia APRN Active MECLIZINE HCL 25 MG ORAL TABLET one 4 times a day as needed for dizziness MECLIZINE HCL 34311758808 No Longer Active Erin Garsia DAMPER FITTER Active SPIRONOLACTONE 25 MG ORAL TABLET 4 tablets by mouth daily SPIRONOLACTONE 11880124314 No Longer Active Erin Garsia APRN Active LEVAQUIN 500 MG ORAL TABLET 1 tablet by mouth daily for 7 days LEVOFLOXACIN 52969329040 No Longer Active Erin Garsia APRN Active BACTRIM DS 800-160 MG ORAL TABLET 1 tab by mouth twice daily 2015 TRIMETHOPRIM-SULFAMETHOXAZOLE 41558632136 No Longer Active Robbie Busby MD Active HYDRALAZINE HCL 50 MG ORAL TABLET TWO BY MOUTH THREE TIMES DAILY HYDRALAZINE HCL 63968869026 No Longer Active Rober Rodríguez APRN Active HYDROCODONE-ACETAMINOPHEN 5-325 MG ORAL TABLET 1 tab by mouth BID prn back pain HYDROCODONE-ACETAMINOPHEN 57914646079 No Longer Active Jillina Zulemal DAMPER FITTER Active HYDROCHLOROTHIAZIDE TABLET Take one by mouth daily HYDROCHLOROTHIAZIDE TABS 33261914829 No Longer Active Jillina Frakierstenl DAMPER FITTER Active LAMISIL 125 MG ORAL PACKET 1 TAB PO DAILY TERBINAFINE HCL 32015801903 No Longer Active Jillina Frazell DAMPER FITTER Active TRILEPTAL 150 MG ORAL TABLET 1 TAB PO Q HS OXCARBAZEPINE 92905677729 No Longer Active Jillina Frazell DAMPER FITTER Active BETADINE 10 % EXTERNAL SOLUTION wash with solution to treat follicultis 07/29 POVIDONE-IODINE 55582144920 No Longer Active Rober Rodríguez APRN Active NYSTATIN 006576 UNIT/ML MOUTH/THROAT SUSPENSION 5mL po QID x 10 days NYSTATIN 10324036864 No Longer Active Erin Garsia APRN Active PREDNISONE 20 MG ORAL TABLET 1 tablet twice daily for 2 days, then 1 tablet once daily for 2 days PREDNISONE 03112194254 No Longer Active Robbie Busby MD Active CEFDINIR 300 MG ORAL CAPSULE Take 1 cap po bid x 10 days CEFDINIR 34332631382 No Longer Active Robbie Busby MD Active AMLODIPINE BESYLATE 10 MG ORAL TABLET 1 tablet by mouth daily AMLODIPINE BESYLATE 20185997507 Active Robbie Busby MD Active CARVEDILOL 25 MG ORAL TABLET 1 & 1/2 TAB po BID CARVEDILOL 14196372105 Active Robbie Busby MD Active NEXIUM 40 MG ORAL CAPSULE DELAYED RELEASE 1 cap by mouth daily ESOMEPRAZOLE MAGNESIUM 82838474540 Active Robbie Busby MD Active PROTONIX 40 MG INTRAVENOUS SOLUTION RECONSTITUTED 1 po qday for acid reflux PANTOPRAZOLE SODIUM 87217452160 No Longer Active Gali Raida Active KEFLEX 500 MG ORAL CAPSULE 1 po TID x 10 days CEPHALEXIN 83802124635 No Longer Active Robbie Busby MD Active TEMAZEPAM 15 MG ORAL CAPSULE 1 TAB PO Q HS TEMAZEPAM 37373406369 Active Robbie Busby MD Active ALPRAZOLAM 2 MG ORAL TABLET 1 TAB PO BID ALPRAZOLAM 90628073519 Active Robbie Busby MD Active FENOFIBRATE 145 MG ORAL TABLET Take one by mouth daily FENOFIBRATE 14768305986 No Longer Active Robbie Busby MD Active SPIRONOLACTONE 50 MG ORAL TABLET 1 tablet by mouth twice a day SPIRONOLACTONE 04236902528 No Longer Active Robbie Busby MD Active HYDRALAZINE HCL 25 MG ORAL TABLET 1 tablet by mouth tid for hypertension 2013 HYDRALAZINE HCL 17360742974 No Longer Active Robbie Busby MD Active VIIBRYD 40 MG ORAL TABLET take 1 tab po qday for depression. 2014 VILAZODONE HCL 66147553905 No Longer Active Robbie Busby MD Active TERBINAFINE HCL 250 MG ORAL TABLET 1 tab po qday for foot infection TERBINAFINE HCL 62831789329 No Longer Active Robbie Busby MD Active GABAPENTIN 300 MG ORAL CAPSULE 1 po q hs for nerve pain GABAPENTIN 96415751513 Active Robbie Busby MD Active CHERATUSSIN AC 100-10 MG/5ML ORAL SOLUTION 7.5 mL PO q 4-6 hrs PRN cough 2014 GUAIFENESIN-CODEINE 28707963307 No Longer Active Robbie Busby MD Active AZITHROMYCIN 250 MG ORAL TABLET 2 tablets PO today---then, 1 tablet PO daily x 4 more days (and 1 optional refill) AZITHROMYCIN 51886765981 No Longer Active Robbie Busby MD Active NORVASC 10 MG ORAL TABLET 1 tablet by mouth daily AMLODIPINE BESYLATE 52429200430 No Longer Active Alex ALVAREZ Active IMDUR 60 MG ORAL TABLET EXTENDED RELEASE 24 HOUR take 1 tab po qday for blood pressure ISOSORBIDE MONONITRATE 77389931429 Active Robbie Busby MD Active ISOSORBIDE DINITRATE 30 MG ORAL TABLET Take one by mouth daily ISOSORBIDE DINITRATE 13068251026 No Longer Active Robbie Busby MD Active VIIBRYD 40 MG ORAL TABLET 1 TA B PO DAILY VILAZODONE HCL 25608842749 Active Robbie Busby MD Active ZITHROMAX 250 MG ORAL TABLET 2 po today, then 1 po q days 2-5 AZITHROMYCIN 17651082454 No Longer Active Robbie Busby MD Active DOPRDATG-MKZ-3 0.3 MG/24HR TRANSDERMAL PATCH WEEKLY apply 2 patches q week for HTN CLONIDINE HCL 52756967967 Active Robbie Busby MD Active DOXAZOSIN MESYLATE 4 MG ORAL TABLET Take one by mouth daily DOXAZOSIN MESYLATE 78997431914 Active Robbie Busby MD Active TOPROL XL 200 MG ORAL TABLET EXTENDED RELEASE 24 HOUR Take one by mouth daily METOPROLOL SUCCINATE 79045328851 Active Robbie Busby MD Active VENLAFAXINE HCL ER 150 MG ORAL TABLET EXTENDED RELEASE 24 HOUR Take one by mouth daily VENLAFAXINE HCL 98769083798 Active Robbie Busby MD Active LIPITOR 40 MG ORAL TABLET Take one by mouth daily ATORVASTATIN CALCIUM 18265555722 Active Robbie Busby MD Active ISOSORBIDE DINITRATE 30 MG ORAL TABLET Take one by mouth daily ISOSORBIDE DINITRATE 30 MG ORAL TABLET 851523 ISOSORBIDE DINITRATE Inactive NORVASC 10 MG ORAL TABLET 1 tablet by mouth daily NORVASC 10 MG ORAL TABLET 559964 AMLODIPINE BESYLATE Inactive AZITHROMYCIN 250 MG ORAL TABLET 2 tablets PO today---then, 1 tablet PO daily x 4 more days (and 1 optional refill) AZITHROMYCIN 250 MG ORAL TABLET 344557 AZITHROMYCIN Inactive CHERATUSSIN AC 100-10 MG/5ML ORAL SOLUTION 7.5 mL PO q 4-6 hrs PRN cough 2014 CHERATUSSIN AC 100-10 MG/5ML ORAL SOLUTION 576929 GUAIFENESIN-CODEINE Inactive VIIBRYD 40 MG ORAL TABLET take 1 tab po qday for depression. 2014 VIIBRYD 40 MG ORAL TABLET VILAZODONE HCL Inactive HYDRALAZINE HCL 25 MG ORAL TABLET 1 tablet by mouth tid for hypertension 2013 HYDRALAZINE HCL 25 MG ORAL TABLET 539378 HYDRALAZINE HCL Inactive SPIRONOLACTONE 50 MG ORAL TABLET 1 tablet by mouth twice a day SPIRONOLACTONE 50 MG ORAL TABLET 438293 SPIRONOLACTONE Inactive FENOFIBRATE 145 MG ORAL TABLET Take one by mouth daily FENOFIBRATE 145 MG ORAL TABLET 933749 FENOFIBRATE Inactive PROTONIX 40 MG INTRAVENOUS SOLUTION RECONSTITUTED 1 po qday for acid reflux PROTONIX 40 MG INTRAVENOUS SOLUTION RECONSTITUTED 426352 PANTOPRAZOLE SODIUM Inactive CEFDINIR 300 MG ORAL CAPSULE Take 1 cap po bid x 10 days CEFDINIR 300 MG ORAL CAPSULE 936349 CEFDINIR Inactive PREDNISONE 20 MG ORAL TABLET 1 tablet twice daily for 2 days, then 1 tablet once daily for 2 days PREDNISONE 20 MG ORAL TABLET 186462 PREDNISONE Inactive NYSTATIN 136404 UNIT/ML MOUTH/THROAT SUSPENSION 5mL po QID x 10 days NYSTATIN 690568 UNIT/ML MOUTH/THROAT SUSPENSION 796040 NYSTATIN Inactive BETADINE 10 % EXTERNAL SOLUTION wash with solution to treat follicultis 07/29 BETADINE 10 % EXTERNAL SOLUTION 6097507 POVIDONE-IODINE Inactive TRILEPTAL 150 MG ORAL TABLET 1 TAB PO Q HS TRILEPTAL 150 MG ORAL TABLET 896004 OXCARBAZEPINE Inactive LAMISIL 125 MG ORAL PACKET 1 TAB PO DAILY LAMISIL 125 MG ORAL PACKET TERBINAFINE HCL Inactive HYDROCHLOROTHIAZIDE TABLET Take one by mouth daily HYDROCHLOROTHIAZIDE TABLET HYDROCHLOROTHIAZIDE TABS Inactive HYDROCODONE-ACETAMINOPHEN 5-325 MG ORAL TABLET 1 tab by mouth BID prn back pain HYDROCODONE-ACETAMINOPHEN 5-325 MG ORAL TABLET 522280 HYDROCODONE-ACETAMINOPHEN Inactive HYDRALAZINE HCL 50 MG ORAL TABLET TWO BY MOUTH THREE TIMES DAILY HYDRALAZINE HCL 50 MG ORAL TABLET 753835 HYDRALAZINE HCL Inactive LEVAQUIN 500 MG ORAL TABLET 1 tablet by mouth daily for 7 days LEVAQUIN 500 MG ORAL TABLET 769280 LEVOFLOXACIN Inactive SPIRONOLACTONE 25 MG ORAL TABLET 4 tablets by mouth daily SPIRONOLACTONE 25 MG ORAL TABLET 162531 SPIRONOLACTONE Inactive MECLIZINE HCL 25 MG ORAL TABLET one 4 times a day as needed for dizziness MECLIZINE HCL 25 MG ORAL TABLET 259573 MECLIZINE HCL Inactive CLONIDINE HCL 0.2 MG ORAL TABLET 1 TAB BY MOUTH EVERY 8 HOURS CLONIDINE HCL 0.2 MG ORAL TABLET 051588 CLONIDINE HCL Inactive CYCLOBENZAPRINE HCL 10 MG ORAL TABLET 1 tablet by mouth three times daily as needed for muscle spasm/pain for 10 days CYCLOBENZAPRINE HCL 10 MG ORAL TABLET 587387 CYCLOBENZAPRINE HCL Inactive VITAMIN D3 65678 UNIT ORAL CAPSULE 2 CAPS PO WEEKLY VITAMIN D3 32534 UNIT ORAL CAPSULE CHOLECALCIFEROL Inactive FIORICET 50-300-40 MG ORAL CAPSULE take 1 tab po qday prn migraines. FIORICET 50-300-40 MG ORAL CAPSULE 761833 BUTALBITAL-APAP- CAFFEINE Inactive FLONASE 50 MCG/ACT NASAL SUSPENSION 1 spray each nostril twice daily for allergies and runny nose FLONASE 50 MCG/ACT NASAL SUSPENSION 3465715 FLUTICASONE PROPIONATE Inactive LORATADINE 10 MG ORAL TABLET 1 tablet by mouth daily for congestion and allergies. LORATADINE 10 MG ORAL TABLET 142684 LORATADINE Inactive NITROSTAT 0.4 MG SUBLINGUAL TABLET SUBLINGUAL PRN NITROSTAT 0.4 MG SUBLINGUAL TABLET SUBLINGUAL 660386 NITROGLYCERIN Inactive GUAIFENESIN ER 600 MG ORAL TABLET EXTENDED RELEASE 12 HOUR 1 tab po q am 2016 GUAIFENESIN ER 600 MG ORAL TABLET EXTENDED RELEASE 12 HOUR GUAIFENESIN Inactive CYCLOBENZAPRINE HCL 10 MG ORAL TABLET 1 po TID PRN muscle spasm/pain for 10 days CYCLOBENZAPRINE HCL 10 MG ORAL TABLET 128528 CYCLOBENZAPRINE HCL Inactive TOPIRAMATE 50 MG ORAL TABLET take 1 tab po BID for migraines. TOPIRAMATE 50 MG ORAL TABLET 405137 TOPIRAMATE Inactive PREDNISONE 20 MG ORAL TABLET two tabs by mouth today, then one tab by mouth days two and three PREDNISONE 20 MG ORAL TABLET 387409 PREDNISONE Inactive ZITHROMAX 250 MG ORAL TABLET 2 po today, then 1 po q days 2-5 ZITHROMAX 250 MG ORAL TABLET 815947 AZITHROMYCIN Inactive TERBINAFINE HCL 250 MG ORAL TABLET 1 tab po qday for foot infection TERBINAFINE HCL 250 MG ORAL TABLET 342738 TERBINAFINE HCL Inactive KEFLEX 500 MG ORAL CAPSULE 1 po TID x 10 days KEFLEX 500 MG ORAL CAPSULE 642913 CEPHALEXIN Inactive BACTRIM DS 800-160 MG ORAL TABLET 1 tab by mouth twice daily 2015 BACTRIM DS 800-160 MG ORAL TABLET 993762 TRIMETHOPRIM- SULFAMETHOXAZOLE Inactive PREDNISONE 20 MG ORAL TABLET take 3 tabs daily for 3 days, 2 tabs daily for 3 days, 1 tab daily for 3 days, 1/2 tab daily for 4 days PREDNISONE 20 MG ORAL TABLET 934755 PREDNISONE Inactive AZITHROMYCIN 250 MG ORAL TABLET 2 po qd x 1 day, then 1 po qd x 4 days 09/20 AZITHROMYCIN 250 MG ORAL TABLET 829521 AZITHROMYCIN Inactive Advance Directives Directive Description Start [...] AUTO - Chemistry sodium, serum 142 mmol/L 318-610 8614/07/17 carbon dioxide, venous blood 28.2 mmol/L 21.0-32.0 [...] % 11.0-15.0 platelet count 185 THOUSAND/UL 10*3/mm3 775-294 2924/04/14 mean platelet volume 10.9 fL 7.5-12.5 Lab Report: HGBA1C, Basic Metabolic Panel - Chemistry hemoglobin A1C, blood, as % of total hemoglobin 6.9 % 4.3-6.0 sodium, serum 139 mmol/L 640-201 5298/01/04 potassium, serum 3.9 mmol/L 3.5-5.2 chloride, serum 103 mmol/L 98-107 carbon dioxide, venous blood 26.9 mmol/L 21.0-32.0 blood glucose 106 mg/dL 65-110 calcium, serum 9.0 mg/dL 8.5-10.1 urea nitrogen, blood 20 mg/dL 7-18 creatinine, serum 1.46 mg/dL 0.60-1.30 Lab Report: LIPID PANEL, TSH/899, T4, FREE/866 - Chemistry cholesterol, serum 220 mg/dL 606-460 3473/04/14 HDL cholesterol, serum 30 mg/dL > OR=40 [...] 1.80 ng/mL 0.00-4.00 Lab Report: VITAMIN D, 25-HYDROXY/42839 - Chemistry vitamin D 25-hydroxy, serum 25 ng/mL 30-100 Office Visit: Confusion, dizziness after fall - Basic LDL target level 130 mg/dL Office Visit: Confusion, dizziness after fall - Chemistry HDL cholesterol, serum, target level 40 mg/dL triglyceride, target level 150 mg/dL cholesterol, target level 200 mg/dL Encounters Code Encounter Date Provider Facility CPT-41021 Level 4 Est. Patient 15:23:[address] JUDGE Desmond Diaz DO [facility] CPT-44140 Level 3 Est. Patient 15:40:49 CDT Robbie Busby MD [facility] CPT-96487 Level 4 Est. Patient 15:18:19 CDT Robbie Busby MD [facility] CPT-96619 Level 3 Est. Patient 09:00:37 CDT Jillina Frazell [facility] CPT-09230 Level 3 Est. Patient 16:07:10 CDT Robbie Busby MD [facility] CPT-44689 Level 4 Est. Patient 11:56:16 CDT Erin Garsia [facility] CPT-64012 Level 3 Est. Patient 17:48:02 CDT Robbie Busby MD [facility] CPT-27582 Level 4 Est. Patient 12:00:[address] JUDGE Rober Rodríguez [facility] CPT-21256 Level 3 Est. Patient 09:16:37 CDT Robbie Busby MD [facility]-29338 Level 3 Est. Patient 19:38:43 CDT Robbie Busby MD [facility] CPT-79837 Level 3 Est. Patient 11:53:38 CDT Robbie Busby MD [facility] CPT-32109 Level 4 Est. Patient 12:52:22 CDT Rober Rodríguez [facility] CPT-94564 Level 4 Est. Patient 22:55:17 CDT Robbie Busby MD [facility] CPT-80951 Level 3 Est. Patient 12:38:24 CDT Desmond Diaz DO [facility] CPT-66711 Level 4 Est. Patient 11:25:[address] JUDGE Robbie Busby MD [facility] CPT-81511 Level 4 Est. Patient 14:50:10 CDT Robbie Busby MD [facility] CPT-62102 Level 4 Est. Patient 23:30:43 CDT Robbie Busby MD [facility] CPT-67610 Level 4 Est. Patient 10:30:43 CDT Robbie Busby MD [facility] CPT-88981 Level 3 Est. Patient 17:08:12 CDT Alex ALVAREZ [facility] CPT-99493 Level 4 Est. Patient 17:51:38 CDT Robbie Busby MD [facility] CPT-11010 Level 4 Est. Patient 14:00:21 CDT Robbie Busby MD [facility] CPT-56674 Level 4 Est. Patient 12:46:48 CDT Robbie Busby MD [facility] CPT-84707 Level 4 Est. Patient 13:34:33 CDT Robbie Busby MD [facility] CPT-21077 Level 4 Est. Patient 16:58:28 CDT Robbie Busby MD [facility] CPT-94984 Level 3 Est. Patient 19:36:[address] [facility] CPT-05728 Level 3 Est. Patient 12:58:15 CDT Robbie Busby MD [facility] Procedures Code Procedure Name Date Entry Date Standard Description CPT-J1071 Depo Testosterone 200mg 15:33:[address] JUDGE CPT-69232 Abx/Therapy Injection 15:33:[address] JUDGE CPT-J1071 Depo Testosterone 200mg 09:38:[address] JUDGE CPT-97377 Abx/Therapy Injection 09:38:[address] JUDGE CPT-J1071 Depo Testosterone 200mg 10:22:[address] JUDGE CPT-87234 Abx/Therapy Injection 10:22:[address] JUDGE CPT-J1071 Depo Testosterone 200mg 15:40:23 CDT CPT-37763 Abx/Therapy Injection 15:40:23 CDT CPT-J1071 Depo Testosterone 200mg 14:20:43 CDT CPT-28257 Abx/Therapy Injection 14:20:43 CDT CPT-J1071 Depo Testosterone 200mg 14:17:22 CDT CPT-62516 Abx/Therapy Injection 14:17:22 CDT CPT-J1071 Depo Testosterone 200mg 09:03:53 CDT CPT-42751 Abx/Therapy Injection 09:03:53 CDT CPT-G0439 [facility] Annual Wellness Exam 16:47:44 CDT CPT-J1071 Depo Testosterone 200mg 09:06:28 CDT CPT-69944 Abx/Therapy Injection 09:06:28 CDT CPT-J1071 Depo Testosterone 200mg 08:30:01 CDT CPT-19037 Abx/Therapy Injection 08:30:01 CDT CPT-J1071 Depo Testosterone 200mg 08:24:00 CDT CPT-38018 Abx/Therapy Injection 08:24:00 CDT CPT-42274 Venipuncture Draw Fee 14:39:06 CDT CPT-07693 Ribs unilateral 2V - XRAY USE ONLY 12:10:11 CDT CPT-59303 First Vx - Ix admin for Medicare patients 16:32:53 CDT CPT-50615 Boostrix Intramuscular Suspension 5-2.5-18.5 16:32:53 CDT CPT-70943 TB Skin Test 11:42:28 CDT CPT-33538 Tdap 7yrs or > 11:42:28 CDT CPT-J0696 Rocephin 1000 mg (Ceftriaxone) 17:43:[address] JUDGE CPT-J1040 Depo Medrol 80 mg (Methyl Prednisolone Acetate) 17:43: [address] JUDGE CPT-J1100 Decadron 8mg (Dexamethasone) 17:43:[address] JUDGE CPT-43673 Abx/Therapy Injection 17:43:[address] JUDGE CPT-96398 Abx/Therapy Injection 17:43:[address] JUDGE CPT-J1040 Depo Medrol 80 mg (Methyl Prednisolone Acetate) 09:43: [address] JUDGE CPT-J1100 Decadron 8mg (Dexamethasone) 09:43:[address] JUDGE CPT-J0696 Rocephin 1gm Inj Solr 09:43:[address] JUDGE CPT-89279 Wound Culture - LAB USE ONLY 14:00:21 CDT CPT-I/D I/D Abscess 09:16:37 CDT CPT-47828 Venipuncture Draw Fee 15:20:23 CDT CPT-66213 Microalbumin - LAB USE ONLY 16:02:19 CDT CPT-86438 CBC - LAB USE ONLY 16:02:19 CDT CPT-90756 Venipuncture Draw Fee 16:02:19 CDT CPT-G0438 Initial Annual Wellness Exam 08:10:28 CDT CPT-85003 Venipuncture Draw Fee 13:07:17 CDT CPT-G0008 Administration of Influenza Virus Vaccine 16:09:59 CDT CPT-72778 Fluzone Quadrivalent Intramuscular Suspension 0.5 ML 16: 09:59 CDT CPT-54971 Spec Collection and Handling Fee 15:05:50 CDT
--- OUTSIDE RECORDS SUMMARY | 2018-04-18 12:49 | XMS REPORT | Clinical Summary ---
Author Author Admin, [facility] Organization [facility] Address Unknown Phone Unavailable Allergies, Adverse Reactions, [...] urinary tract (LUTS) Pharyngitis-Acute 462 Active Desmond Diza DO Acute pharyngitis Kidney disease, chronic, stage III 585.3 Active Ca CASTILLO Chronic kidney disease, Stage III (moderate) Medication List Medication Instructions Start Date Stop Date Generic Name NDC Status Provider Patient Instruction VITAMIN D3 38821 UNIT CAPS 1 CAP PO WEEKLY CHOLECALCIFEROL 77364725871 Active Vanessa August Active CEFDINIR 300 MG ORAL CAPS Take 1 cap po bid x 10 days CEFDINIR 85656105467 Active Jackie Junior MA Active PREDNISONE 20 MG TAB 1 tablet twice daily for 2 days, then 1 tablet once daily for 2 days PREDNISONE 49746872405 Active Desmond Diaz DO Active NEXIUM 40 MG CPDR 1 cap by mouth daily ESOMEPRAZOLE MAGNESIUM 50099215169 Active Gali Negro Active PROTONIX 40 MG SOLR 1 po qday for acid reflux PANTOPRAZOLE SODIUM 84363730751 No Longer Active Galileonila Negro Active BETADINE 10 % EXT SOLN wash with solution to treat follicultis POVIDONE-IODINE 59208227176 Active Robbie Busby MD Active KEFLEX 500 MG CAP 1 po TID x 10 days CEPHALEXIN 75652996356 No Longer Active Robbie Busby MD Active FIORICET 50-300-40 MG ORAL CAPS take 1 tab po qday prn migraines. [id number] 32058994697 Active Robbie Busby MD Active TOPIRAMATE 50 MG ORAL TABS take 1 tab po BID for migraines. TOPIRAMATE 32008120835 Active Robbie Busby MD Active HYDRALAZINE HCL 50 MG ORAL TABS TWO BY MOUTH THREE TIMES DAILY HYDRALAZINE HCL 89224760253 Active Robbie Busby MD Active MECLIZINE HCL 25 MG TAB one 4 times a day as needed for dizziness MECLIZINE HCL 56992213184 Active Robbie Busby MD Active TRILEPTAL 150 MG ORAL TABS 1 TAB PO Q HS OXCARBAZEPINE 46718964565 Active Robbie Busby MD Active TEMAZEPAM 15 MG ORAL CAPS 1 TAB PO Q HS TEMAZEPAM 47104895817 Active Robbie Busby MD Active ALPRAZOLAM 2 MG ORAL TABS 1 TAB PO BID ALPRAZOLAM 31269932125 Active Robbie Busby MD Active FENOFIBRATE 145 MG TABS Take one by mouth daily FENOFIBRATE 15297741269 No Longer Active Robbie Busby MD Active LAMISIL 125 MG ORAL PACK 1 TAB PO DAILY TERBINAFINE HCL 73254252335 Active Robbie Busby MD Active SPIRONOLACTONE 50 MG TABS 1 tablet by mouth twice a day SPIRONOLACTONE 00721644935 No Longer Active Robbie Busby MD Active HYDRALAZINE HCL 25 MG TABS 1 tablet by mouth tid for hypertension HYDRALAZINE HCL 47144797910 No Longer Active Robbie Busby MD Active VIIBRYD 40 MG TABS take 1 tab po qday for depression. VILAZODONE HCL 86604440063 No Longer Active Robbie Busby MD Active TERBINAFINE HCL 250 MG TABS 1 tab po qday for foot infection 2014 TERBINAFINE HCL 80398848434 No Longer Active Robbie Busby MD Active GABAPENTIN 300 MG CAPS 1 po q hs for nerve pain GABAPENTIN 97549473086 Active Robbie Busby MD Active FLONASE 50 MCG/ACT SUSP 1 spray each nostril twice daily for allergies and runny nose FLUTICASONE PROPIONATE 15716783002 Active Robbie Busby MD Active CHERATUSSIN AC 100-10 MG/5ML ORAL SOLN 7.5 mL PO q 4-6 hrs PRN cough GUAIFENESIN-CODEINE 53189121254 No Longer Active Robbie Busby MD Active AZITHROMYCIN 250 MG ORAL TABS 2 tablets PO today---then, 1 tablet PO daily x 4 more days (and 1 optional refill) AZITHROMYCIN 34567485134 No Longer Active Robbie Busby MD Active CLONIDINE HCL 0.2 MG ORAL TABS 1 TAB BY MOUTH EVERY 8 HOURS CLONIDINE HCL 93149687296 Active Robbie Busby MD Active HYDROCHLOROTHIAZIDE TABS Take one by mouth daily HYDROCHLOROTHIAZIDE TABS 97051630441 Active Alex ALVAREZ Active NORVASC 10 MG TAB 1 tablet by mouth daily AMLODIPINE BESYLATE 90327239734 No Longer Active Alex ALVAREZ Active IMDUR 60 MG TAB CR take 1 tab po qday for blood pressure ISOSORBIDE MONONITRATE Active Robbie Busby MD Active ISOSORBIDE DINITRATE 30 MG TABS Take one by mouth daily ISOSORBIDE DINITRATE 29947247705 No Longer Active Robbie Busby MD Active VIIBRYD 40 MG TABS 1 TA B PO DAILY VILAZODONE HCL 11822151006 Active Erin Garsia APRN Active LORATADINE 10 MG TABS 1 tablet by mouth daily for congestion and allergies. LORATADINE 09752687071 Active Robbie Busby MD Active ZITHROMAX 250 MG TAB 2 po today, then 1 po q days 2-5 AZITHROMYCIN 57860201053 No Longer Active Robbie Busby MD Active HYDROCODONE-ACETAMINOPHEN 5-325 MG TABS 1 tab by mouth BID prn back pain 2013 HYDROCODONE-ACETAMINOPHEN 84844852712 Active Robbie Busby MD Active [id number]-[id number]-3 0.3 MG/24HR PTWK apply 2 patches q week for HTN CLONIDINE HCL 94506625572 Active Robbie Busby MD Active NITROSTAT 0.4 MG SUBL PRN NITROGLYCERIN 52360001631 Active Robbie Busby MD Active DOXAZOSIN MESYLATE 4 MG TABS Take one by mouth daily DOXAZOSIN MESYLATE 84670225327 Active Robbie Busby MD Active TOPROL XL 200 MG [id number] Take one by mouth daily METOPROLOL SUCCINATE 49316355563 Active Robbie Busby MD Active VENLAFAXINE HCL ER 150 MG [id number] Take one by mouth daily VENLAFAXINE HCL 32129950924 Active Robbie Busby MD Active LIPITOR 40 MG TABS Take one by mouth daily ATORVASTATIN CALCIUM 12249824085 Active Robbie Busby MD Active ISOSORBIDE DINITRATE 30 MG TABS Take one by mouth daily ISOSORBIDE DINITRATE 30 MG TABS 451985 ISOSORBIDE DINITRATE Inactive NORVASC 10 MG TAB 1 tablet by mouth daily NORVASC 10 MG TAB 749575 AMLODIPINE BESYLATE Inactive AZITHROMYCIN 250 MG ORAL TABS 2 tablets PO today---then, 1 tablet PO daily x 4 more days (and 1 optional refill) AZITHROMYCIN 250 MG ORAL TABS 9922292 AZITHROMYCIN Inactive CHERATUSSIN AC 100-10 MG/5ML ORAL SOLN 7.5 mL PO q 4-6 hrs PRN cough CHERATUSSIN AC 100-10 MG/5ML ORAL SOLN 937857 GUAIFENESIN- CODEINE Inactive VIIBRYD 40 MG TABS take 1 tab po qday for depression. VIIBRYD 40 MG TABS VILAZODONE HCL Inactive HYDRALAZINE HCL 25 MG TABS 1 tablet by mouth tid for hypertension HYDRALAZINE HCL 25 MG TABS 355266 HYDRALAZINE HCL Inactive SPIRONOLACTONE 50 MG TABS 1 tablet by mouth twice a day SPIRONOLACTONE 50 MG TABS 224888 SPIRONOLACTONE Inactive FENOFIBRATE 145 MG TABS Take one by mouth daily FENOFIBRATE 145 MG TABS 309780 FENOFIBRATE Inactive PROTONIX 40 MG SOLR 1 po qday for acid reflux PROTONIX 40 MG SOLR 228770 PANTOPRAZOLE SODIUM Inactive ZITHROMAX 250 MG TAB 2 po today, then 1 po q days 2-5 ZITHROMAX 250 MG TAB 4443339 AZITHROMYCIN Inactive TERBINAFINE HCL 250 MG TABS 1 tab po qday for foot infection 2014 TERBINAFINE HCL 250 MG TABS 315874 TERBINAFINE HCL Inactive KEFLEX 500 MG CAP 1 po TID x 10 days KEFLEX 500 MG CAP 938054 CEPHALEXIN Inactive Vital Signs Date Name Value [...] Acid - Chemistry sodium, serum 139 mmol/L 795-408 2421/04/22 carbon dioxide, venous blood 29.4 mmol/L 21.0-32.0 [...] PANEL - Chemistry cholesterol, serum 211 mg/dL [phone]/08/31 triglyceride, serum, fasting 429 mg/dL 30-200 HDL [...] Negative Encounters Code Encounter Date Provider Facility CPT-09772 Level 3 Est. Patient 12:38:24 CDT Desmond Diaz DO [facility] CPT-62360 Level 4 Est. Patient 11:25:03 [employer] Robbie Busby MD [facility] CPT-17824 Level 4 Est. Patient 14:50:10 CDT Robbie Busby MD [facility] CPT-80311 Level 4 Est. Patient 23:30:43 CDT Robbie Busby MD [facility] CPT-72779 Level 4 Est. Patient 10:30:43 CDT Robbie Busby MD [facility] CPT-28576 Level 3 Est. Patient 17:08:12 CDT Alex ALVAREZ [facility] CPT-72129 Level 4 Est. Patient 17:51:38 CDT Robbie Busby MD [facility] CPT-09325 Level 4 Est. Patient 14:00:21 CDT Robbie Busby MD [facility] CPT-78644 Level 4 Est. Patient 12:46:48 CDT Robbie Busby MD [facility] CPT-58144 Level 4 Est. Patient 13:34:33 CDT Robbie Busby MD [facility] CPT-33348 Level 4 Est. Patient 16:58:28 CDT Robbie Busby MD [facility] CPT-19820 Level 3 Est. Patient 19:36:53 CDT Alex ALVAREZ [facility] CPT-43603 Level 3 Est. Patient 12:58:15 CDT Robbie Busby MD [facility] Procedures Code Procedure Name Date Entry Date Standard Description CPT-48282 Venipuncture Draw Fee 13:07:17 CDT CPT-G0008 Administration of Influenza Virus Vaccine 16:09:59 CDT CPT-38019 Fluzone Quadrivalent Intramuscular Suspension 0.5 ML 16: 09:59 CDT CPT-96837 Spec Collection and Handling Fee 15:05:50 CDT
--- OUTSIDE RECORDS SUMMARY | 2018-04-18 12:49 | XMS REPORT | Clinical Summary ---
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 Desmond Daiz DO Other malignant secondary hypertension Tachycardia 785.0 Active Rober Rodríguez JAVA APPLICATION ENGINEER Tachycardia, unspecified Insect bite, infected 919.5 Resolved Desmond Diaz DO Insect bite, nonvenomous, of other, multiple, and unspecified sites, infected Abscess, skin 682.9 Resolved Desmond Diaz DO Cellulitis and abscess of unspecified sites URI 465.9 Resolved Desmond Diaz DO Acute upper respiratory infections of unspecified site Hypertension 401.9 Active Rober Rodríguez JAVA APPLICATION ENGINEER Unspecified essential hypertension Sinusitis - acute [...] Hypogonadism, low testosterone 257.2 Active Erin Mai JAVA APPLICATION ENGINEER Other testicular hypofunction Low back pain, [...] unspecified site Sinusitis ICD-461.9 Inactive Emily Atwood BEAN PICKER 2017 Low back pain, acute ICD-724.2 Inactive Emily Atwood BEAN PICKER Low back pain, chronic ICD-724.2 Inactive Emily Atwood BEAN PICKER Bronchitis, acute ICD-466.0 Inactive Emily Atwood BEAN PICKER Onychomycosis, toenails ICD-110.1 Inactive Emily Atwood BEAN PICKER Dizziness ICD-780.4 Inactive Emily Atwood BEAN PICKER 2017 Folliculitis ICD-704.8 Inactive Emily Atwood BEAN PICKER Pharyngitis-Acute ICD-462 Inactive Emily Atwood BEAN PICKER Fatigue ICD-780.79 Inactive Emily Atwood BEAN PICKER 09/20 Hypertension, secondary, malignant ICD-405.09 Inactive Emily Atwood BEAN PICKER Insect bite, infected ICD-919.5 Inactive Emily Atwood BEAN PICKER Abscess, skin ICD-682.9 Inactive Emily Atwood BEAN PICKER URI ICD-465.9 Inactive Emily Atwood BEAN PICKER Sinusitis - acute ICD-461.9 Inactive Emily Atwood BEAN PICKER Acute confusion ICD-293.0 Inactive Emily Atwood BEAN PICKER Headache ICD-784.0 Inactive Emily Atwood BEAN PICKER 09/20 Back pain ICD-724.5 Inactive Emily Atwood BEAN PICKER 2017 Rib pain, right sided ICD-786.50 Inactive Emily Atwood BEAN PICKER Myalgias ICD-729.1 Inactive Emily Atwood BEAN PICKER 09/20 URI ICD-465.9 Inactive Emily Atwood BEAN PICKER Bronchitis-Acute ICD-466.0 Inactive Desmond Diaz DO Medication List Medication Instructions Start Date Stop Date Generic Name NDC Status Provider Patient Instruction PREDNISONE 20 MG ORAL TABLET 2 po qd x 5 days PREDNISONE 61024603054 No Longer Active Renny Bella MD Active PROMETHAZINE-CODEINE 6.25-10 MG/5ML ORAL SYRUP 5ml po q6hr PRN Cough PROMETHAZINE-CODEINE 37433319792 Active Renny Bella MD Active MONTELUKAST SODIUM 10 MG ORAL TABLET 1 tab po daily for allergies MONTELUKAST SODIUM 39319877276 Active JONATHAN Moncada Active IMDUR 60 MG ORAL TABLET EXTENDED RELEASE 24 HOUR 1 po q day ISOSORBIDE MONONITRATE 94810534191 Active Emma Hernandez Active METOPROLOL SUCCINATE ER 200 MG ORAL TABLET EXTENDED RELEASE 24 HOUR take 1 tab po qday for high blood pressure and rapid pulse METOPROLOL SUCCINATE 04630955182 Active Robbie Busby MD Active DKJEZRAZ-GJI-1 0.3 MG/24HR TRANSDERMAL PATCH WEEKLY apply 2 patches q week for HTN CLONIDINE HCL 52396808372 No Longer Active Robbie Busby MD Active IMDUR 60 MG ORAL TABLET EXTENDED RELEASE 24 HOUR take 1 tab po qday for blood pressure ISOSORBIDE MONONITRATE 60240843401 No Longer Active Robbie Busby MD Active TEMAZEPAM 15 MG ORAL CAPSULE 1 TAB PO Q HS TEMAZEPAM 48148760489 No Longer Active Robbie Busby MD Active TOPIRAMATE 50 MG ORAL TABLET 1 po BID for migraines TOPIRAMATE 43352674298 No Longer Active Robbie Busby MD Active CYCLOBENZAPRINE HCL 10 MG ORAL TABLET 1 tablet by mouth three times daily as needed for muscle spasm/pain CYCLOBENZAPRINE HCL 60622706662 No Longer Active Robbie Busby MD Active TOPROL XL 200 MG ORAL TABLET EXTENDED RELEASE 24 HOUR Take one by mouth daily METOPROLOL SUCCINATE 43437736512 No Longer Active Robbie Busby MD Active METFORMIN HCL 500 MG ORAL TABLET 1 tablet by mouth daily for diabetes type 2 METFORMIN HCL 03265009978 Active Robbie Busby MD Active SINGULAIR 10 MG ORAL TABLET 1 po qday for allergies. MONTELUKAST SODIUM 38244010987 No Longer Active Robbie Busby MD Active PREDNISONE 20 MG ORAL TABLET two tabs by mouth today, then one tab by mouth days two and three PREDNISONE 53556331073 No Longer Active Robbie Busby MD Active AZITHROMYCIN 250 MG ORAL TABLET 2 po qd x 1 day, then 1 po qd x 4 days 09/20 AZITHROMYCIN 99268805830 No Longer Active Desmond Diaz DO Active TOPIRAMATE 50 MG ORAL TABLET take 1 tab po BID for migraines. TOPIRAMATE 68206525292 No Longer Active Desmond Diaz DO Active CYCLOBENZAPRINE HCL 10 MG ORAL TABLET 1 po TID PRN muscle spasm/pain for 10 days CYCLOBENZAPRINE HCL 52238792855 No Longer Active Desmond Diaz DO Active GUAIFENESIN ER 600 MG ORAL TABLET EXTENDED RELEASE 12 HOUR 1 tab po q am 2016 GUAIFENESIN 57627081450 No Longer Active Robbie Busby MD Active DIVALPROEX SODIUM ER 500 MG ORAL TABLET EXTENDED RELEASE 24 HOUR Once daily DIVALPROEX SODIUM 82173361701 Active Robbie Busby MD Active DEPO-TESTOSTERONE 200 MG/ML INTRAMUSCULAR SOLUTION 1 IM Injections every 2 weeks for low testosterone TESTOSTERONE CYPIONATE 02410590196 Active Zulema Blank LPN Active FLUTICASONE PROPIONATE 50 MCG/ACT NASAL SUSPENSION 2 sprays per nostril bid for 1 week, then 1 spray bid FLUTICASONE PROPIONATE 57242268089 Active Jillld Rodríguez APRN Active HYDRALAZINE HCL 25 MG ORAL TABLET Take 1 tab BID. HYDRALAZINE HCL 02468216179 Active Jillina Anne GONZALEZN Active VITAMIN D3 14970 UNIT ORAL TABLET 2 po weekly CHOLECALCIFEROL 42288692511 Active Robbie Busby MD Active OXYCODONE HCL ER 10 MG ORAL TABLET ER 12 HOUR ABUSE-DETERRENT 1 tab po 3 times qd. OXYCODONE HCL 86006751344 Active Robbie Busby MD Active NITROSTAT 0.4 MG SUBLINGUAL TABLET SUBLINGUAL PRN NITROGLYCERIN 16061910136 No Longer Active Robbie Busby MD Active LORATADINE 10 MG ORAL TABLET 1 tablet by mouth daily for congestion and allergies. LORATADINE 38570353854 No Longer Active Robbie Busby MD Active FLONASE 50 MCG/ACT NASAL SUSPENSION 1 spray each nostril twice daily for allergies and runny nose FLUTICASONE PROPIONATE 02182304203 No Longer Active Robbie Busby MD Active FIORICET 50-300-40 MG ORAL CAPSULE take 1 tab po qday prn migraines. [id number]-IJVR-TAETWXMA 55974736072 No Longer Active Robbie Busby MD Active VITAMIN D3 05220 UNIT ORAL CAPSULE 2 CAPS PO WEEKLY CHOLECALCIFEROL 94646930814 No Longer Active Robbie Busby MD Active CYCLOBENZAPRINE HCL 10 MG ORAL TABLET 1 tablet by mouth three times daily as needed for muscle spasm/pain for 10 days CYCLOBENZAPRINE HCL 53714891630 No Longer Active Robbie Busby MD Active PREDNISONE 20 MG ORAL TABLET take 3 tabs daily for 3 days, 2 tabs daily for 3 days, 1 tab daily for 3 days, 1/2 tab daily for 4 days PREDNISONE 99695564098 No Longer Active Erin Arezane GONZALEZN Active CLONIDINE HCL 0.2 MG ORAL TABLET 1 TAB BY MOUTH EVERY 8 HOURS CLONIDINE HCL 07569818573 No Longer Active Erin Arell JAVA APPLICATION ENGINEER Active MECLIZINE HCL 25 MG ORAL TABLET one 4 times a day as needed for dizziness MECLIZINE HCL 05534616077 No Longer Active Erin Arell JAVA APPLICATION ENGINEER Active SPIRONOLACTONE 25 MG ORAL TABLET 4 tablets by mouth daily SPIRONOLACTONE 47347029579 No Longer Active Erin Arell JAVA APPLICATION ENGINEER Active LEVAQUIN 500 MG ORAL TABLET 1 tablet by mouth daily for 7 days LEVOFLOXACIN 25923834088 No Longer Active Erin Arell JAVA APPLICATION ENGINEER Active BACTRIM DS 800-160 MG ORAL TABLET 1 tab by mouth twice daily 2015 TRIMETHOPRIM-SULFAMETHOXAZOLE 66224343853 No Longer Active Robbie Busby MD Active HYDRALAZINE HCL 50 MG ORAL TABLET TWO BY MOUTH THREE TIMES DAILY HYDRALAZINE HCL 30910917773 No Longer Active Rober Rodríguez APRN Active HYDROCODONE-ACETAMINOPHEN 5-325 MG ORAL TABLET 1 tab by mouth BID prn back pain HYDROCODONE-ACETAMINOPHEN 45964692291 No Longer Active Rober Rodríguez APRN Active HYDROCHLOROTHIAZIDE TABLET Take one by mouth daily HYDROCHLOROTHIAZIDE TABS 91013325225 No Longer Active Jillina Frazell JAVA APPLICATION ENGINEER Active LAMISIL 125 MG ORAL PACKET 1 TAB PO DAILY TERBINAFINE HCL 47112386643 No Longer Active Jillina Frazell JAVA APPLICATION ENGINEER Active TRILEPTAL 150 MG ORAL TABLET 1 TAB PO Q HS OXCARBAZEPINE 93806247358 No Longer Active Jillina Frazell JAVA APPLICATION ENGINEER Active BETADINE 10 % EXTERNAL SOLUTION wash with solution to treat follicultis 07/29 POVIDONE-IODINE 24296305497 No Longer Active Jillina Frazell JAVA APPLICATION ENGINEER Active NYSTATIN 200929 UNIT/ML MOUTH/THROAT SUSPENSION 5mL po QID x 10 days NYSTATIN 29531258058 No Longer Active Erin Mai APRN Active PREDNISONE 20 MG ORAL TABLET 1 tablet twice daily for 2 days, then 1 tablet once daily for 2 days PREDNISONE 11102807657 No Longer Active Robbie Busby MD Active CEFDINIR 300 MG ORAL CAPSULE Take 1 cap po bid x 10 days CEFDINIR 50064910650 No Longer Active Robbie Busby MD Active AMLODIPINE BESYLATE 10 MG ORAL TABLET 1 tablet by mouth daily AMLODIPINE BESYLATE 83349811576 Active Robbie Busby MD Active CARVEDILOL 25 MG ORAL TABLET 1 & 1/2 TAB po BID CARVEDILOL 22702787359 Active Robbie Busby MD Active NEXIUM 40 MG ORAL CAPSULE DELAYED RELEASE 1 cap by mouth daily ESOMEPRAZOLE MAGNESIUM 03764502185 Active Robbie Busby MD Active PROTONIX 40 MG INTRAVENOUS SOLUTION RECONSTITUTED 1 po qday for acid reflux PANTOPRAZOLE SODIUM 59991113163 No Longer Active Gali Raida Active KEFLEX 500 MG ORAL CAPSULE 1 po TID x 10 days CEPHALEXIN 34871744409 No Longer Active Robbie Busby MD Active ALPRAZOLAM 2 MG ORAL TABLET 1 TAB PO BID ALPRAZOLAM 63481986879 Active Robbie Busby MD Active FENOFIBRATE 145 MG ORAL TABLET Take one by mouth daily FENOFIBRATE 75403310563 No Longer Active Robbie Busby MD Active SPIRONOLACTONE 50 MG ORAL TABLET 1 tablet by mouth twice a day SPIRONOLACTONE 84610447277 No Longer Active Robbie Busby MD Active HYDRALAZINE HCL 25 MG ORAL TABLET 1 tablet by mouth tid for hypertension 2013 HYDRALAZINE HCL 28209703877 No Longer Active Robbie Busby MD Active VIIBRYD 40 MG ORAL TABLET take 1 tab po qday for depression. 2014 VILAZODONE HCL 31477727317 No Longer Active Robbie Busby MD Active TERBINAFINE HCL 250 MG ORAL TABLET 1 tab po qday for foot infection TERBINAFINE HCL 61293976382 No Longer Active Robbie Busby MD Active GABAPENTIN 300 MG ORAL CAPSULE 1 po q hs for nerve pain GABAPENTIN 05735586724 Active Robbie Busby MD Active CHERATUSSIN AC 100-10 MG/5ML ORAL SOLUTION 7.5 mL PO q 4-6 hrs PRN cough 2014 GUAIFENESIN-CODEINE 80492933003 No Longer Active Robbie Busby MD Active AZITHROMYCIN 250 MG ORAL TABLET 2 tablets PO today---then, 1 tablet PO daily x 4 more days (and 1 optional refill) AZITHROMYCIN 81514921628 No Longer Active Robbie Busby MD Active NORVASC 10 MG ORAL TABLET 1 tablet by mouth daily AMLODIPINE BESYLATE 39122543769 No Longer Active Alex ALVAREZ Active ISOSORBIDE DINITRATE 30 MG ORAL TABLET Take one by mouth daily ISOSORBIDE DINITRATE 14221331251 No Longer Active Robbie Busby MD Active VIIBRYD 40 MG ORAL TABLET 1 TA B PO DAILY VILAZODONE HCL 33160784930 Active Robbie Busby MD Active ZITHROMAX 250 MG ORAL TABLET 2 po today, then 1 po q days 2-5 AZITHROMYCIN 57507211232 No Longer Active Robbie Busby MD Active DOXAZOSIN MESYLATE 4 MG ORAL TABLET Take one by mouth daily DOXAZOSIN MESYLATE 72198382677 Active Robbie Busby MD Active VENLAFAXINE HCL ER 150 MG ORAL TABLET EXTENDED RELEASE 24 HOUR Take one by mouth daily VENLAFAXINE HCL 33582233392 Active Robbie Busby MD Active LIPITOR 40 MG ORAL TABLET Take one by mouth daily ATORVASTATIN CALCIUM 33431031462 Active Robbie Busby MD Active ISOSORBIDE DINITRATE 30 MG ORAL TABLET Take one by mouth daily ISOSORBIDE DINITRATE 30 MG ORAL TABLET 314756 ISOSORBIDE DINITRATE Inactive NORVASC 10 MG ORAL TABLET 1 tablet by mouth daily NORVASC 10 MG ORAL TABLET 849166 AMLODIPINE BESYLATE Inactive AZITHROMYCIN 250 MG ORAL TABLET 2 tablets PO today---then, 1 tablet PO daily x 4 more days (and 1 optional refill) AZITHROMYCIN 250 MG ORAL TABLET 550707 AZITHROMYCIN Inactive CHERATUSSIN AC 100-10 MG/5ML ORAL SOLUTION 7.5 mL PO q 4-6 hrs PRN cough 2014 CHERATUSSIN AC 100-10 MG/5ML ORAL SOLUTION 181715 GUAIFENESIN-CODEINE Inactive VIIBRYD 40 MG ORAL TABLET take 1 tab po qday for depression. 2014 VIIBRYD 40 MG ORAL TABLET VILAZODONE HCL Inactive HYDRALAZINE HCL 25 MG ORAL TABLET 1 tablet by mouth tid for hypertension 2013 HYDRALAZINE HCL 25 MG ORAL TABLET 144262 HYDRALAZINE HCL Inactive SPIRONOLACTONE 50 MG ORAL TABLET 1 tablet by mouth twice a day SPIRONOLACTONE 50 MG ORAL TABLET 148747 SPIRONOLACTONE Inactive FENOFIBRATE 145 MG ORAL TABLET Take one by mouth daily FENOFIBRATE 145 MG ORAL TABLET 823716 FENOFIBRATE Inactive PROTONIX 40 MG INTRAVENOUS SOLUTION RECONSTITUTED 1 po qday for acid reflux PROTONIX 40 MG INTRAVENOUS SOLUTION RECONSTITUTED 980661 PANTOPRAZOLE SODIUM Inactive CEFDINIR 300 MG ORAL CAPSULE Take 1 cap po bid x 10 days CEFDINIR 300 MG ORAL CAPSULE 555958 CEFDINIR Inactive PREDNISONE 20 MG ORAL TABLET 1 tablet twice daily for 2 days, then 1 tablet once daily for 2 days PREDNISONE 20 MG ORAL TABLET 145144 PREDNISONE Inactive NYSTATIN 317314 UNIT/ML MOUTH/THROAT SUSPENSION 5mL po QID x 10 days NYSTATIN 444780 UNIT/ML MOUTH/THROAT SUSPENSION 324399 NYSTATIN Inactive BETADINE 10 % EXTERNAL SOLUTION wash with solution to treat follicultis 07/29 BETADINE 10 % EXTERNAL SOLUTION 5268950 POVIDONE-IODINE Inactive TRILEPTAL 150 MG ORAL TABLET 1 TAB PO Q HS TRILEPTAL 150 MG ORAL TABLET 184519 OXCARBAZEPINE Inactive LAMISIL 125 MG ORAL PACKET 1 TAB PO DAILY LAMISIL 125 MG ORAL PACKET TERBINAFINE HCL Inactive HYDROCHLOROTHIAZIDE TABLET Take one by mouth daily HYDROCHLOROTHIAZIDE TABLET HYDROCHLOROTHIAZIDE TABS Inactive HYDROCODONE-ACETAMINOPHEN 5-325 MG ORAL TABLET 1 tab by mouth BID prn back pain HYDROCODONE-ACETAMINOPHEN 5-325 MG ORAL TABLET 960605 HYDROCODONE-ACETAMINOPHEN Inactive HYDRALAZINE HCL 50 MG ORAL TABLET TWO BY MOUTH THREE TIMES DAILY HYDRALAZINE HCL 50 MG ORAL TABLET 914016 HYDRALAZINE HCL Inactive LEVAQUIN 500 MG ORAL TABLET 1 tablet by mouth daily for 7 days LEVAQUIN 500 MG ORAL TABLET 523358 LEVOFLOXACIN Inactive SPIRONOLACTONE 25 MG ORAL TABLET 4 tablets by mouth daily SPIRONOLACTONE 25 MG ORAL TABLET 462587 SPIRONOLACTONE Inactive MECLIZINE HCL 25 MG ORAL TABLET one 4 times a day as needed for dizziness MECLIZINE HCL 25 MG ORAL TABLET 619278 MECLIZINE HCL Inactive CLONIDINE HCL 0.2 MG ORAL TABLET 1 TAB BY MOUTH EVERY 8 HOURS CLONIDINE HCL 0.2 MG ORAL TABLET 527078 CLONIDINE HCL Inactive CYCLOBENZAPRINE HCL 10 MG ORAL TABLET 1 tablet by mouth three times daily as needed for muscle spasm/pain for 10 days CYCLOBENZAPRINE HCL 10 MG ORAL TABLET 891171 CYCLOBENZAPRINE HCL Inactive VITAMIN D3 71358 UNIT ORAL CAPSULE 2 CAPS PO WEEKLY VITAMIN D3 53314 UNIT ORAL CAPSULE CHOLECALCIFEROL Inactive FIORICET 50-300-40 MG ORAL CAPSULE take 1 tab po qday prn migraines. FIORICET 50-300-40 MG ORAL CAPSULE 548728 BUTALBITAL-APAP- CAFFEINE Inactive FLONASE 50 MCG/ACT NASAL SUSPENSION 1 spray each nostril twice daily for allergies and runny nose FLONASE 50 MCG/ACT NASAL SUSPENSION 0133156 FLUTICASONE PROPIONATE Inactive LORATADINE 10 MG ORAL TABLET 1 tablet by mouth daily for congestion and allergies. LORATADINE 10 MG ORAL TABLET 169455 LORATADINE Inactive NITROSTAT 0.4 MG SUBLINGUAL TABLET SUBLINGUAL PRN NITROSTAT 0.4 MG SUBLINGUAL TABLET SUBLINGUAL 936573 NITROGLYCERIN Inactive GUAIFENESIN ER 600 MG ORAL TABLET EXTENDED RELEASE 12 HOUR 1 tab po q am 2016 GUAIFENESIN ER 600 MG ORAL TABLET EXTENDED RELEASE 12 HOUR GUAIFENESIN Inactive CYCLOBENZAPRINE HCL 10 MG ORAL TABLET 1 po TID PRN muscle spasm/pain for 10 days CYCLOBENZAPRINE HCL 10 MG ORAL TABLET 894476 CYCLOBENZAPRINE HCL Inactive TOPIRAMATE 50 MG ORAL TABLET take 1 tab po BID for migraines. TOPIRAMATE 50 MG ORAL TABLET 976156 TOPIRAMATE Inactive PREDNISONE 20 MG ORAL TABLET two tabs by mouth today, then one tab by mouth days two and three PREDNISONE 20 MG ORAL TABLET 069643 PREDNISONE Inactive TOPROL XL 200 MG ORAL TABLET EXTENDED RELEASE 24 HOUR Take one by mouth daily TOPROL XL 200 MG ORAL TABLET EXTENDED RELEASE 24 HOUR METOPROLOL SUCCINATE Inactive CYCLOBENZAPRINE HCL 10 MG ORAL TABLET 1 tablet by mouth three times daily as needed for muscle spasm/pain CYCLOBENZAPRINE HCL 10 MG ORAL TABLET 702954 CYCLOBENZAPRINE HCL Inactive TOPIRAMATE 50 MG ORAL TABLET 1 po BID for migraines TOPIRAMATE 50 MG ORAL TABLET 441245 TOPIRAMATE Inactive TEMAZEPAM 15 MG ORAL CAPSULE 1 TAB PO Q HS TEMAZEPAM 15 MG ORAL CAPSULE 394553 TEMAZEPAM Inactive IMDUR 60 MG ORAL TABLET EXTENDED RELEASE 24 HOUR take 1 tab po qday for blood pressure IMDUR 60 MG ORAL TABLET EXTENDED RELEASE 24 HOUR ISOSORBIDE MONONITRATE Inactive ETHSQTPF-ESQ-4 0.3 MG/24HR TRANSDERMAL PATCH WEEKLY apply 2 patches q week for HTN IVANZVLU-URX-2 0.3 MG/24HR TRANSDERMAL PATCH WEEKLY 446705 CLONIDINE HCL Inactive ZITHROMAX 250 MG ORAL TABLET 2 po today, then 1 po q days 2-5 ZITHROMAX 250 MG ORAL TABLET 554493 AZITHROMYCIN Inactive TERBINAFINE HCL 250 MG ORAL TABLET 1 tab po qday for foot infection TERBINAFINE HCL 250 MG ORAL TABLET 129264 TERBINAFINE HCL Inactive KEFLEX 500 MG ORAL CAPSULE 1 po TID x 10 days KEFLEX 500 MG ORAL CAPSULE 165614 CEPHALEXIN Inactive BACTRIM DS 800-160 MG ORAL TABLET 1 tab by mouth twice daily 2015 BACTRIM DS 800-160 MG ORAL TABLET 252668 TRIMETHOPRIM- SULFAMETHOXAZOLE Inactive PREDNISONE 20 MG ORAL TABLET take 3 tabs daily for 3 days, 2 tabs daily for 3 days, 1 tab daily for 3 days, 1/2 tab daily for 4 days PREDNISONE 20 MG ORAL TABLET 616226 PREDNISONE Inactive AZITHROMYCIN 250 MG ORAL TABLET 2 po qd x 1 day, then 1 po qd x 4 days 09/20 AZITHROMYCIN 250 MG ORAL TABLET 159760 AZITHROMYCIN Inactive SINGULAIR 10 MG ORAL TABLET 1 po qday for allergies. SINGULAIR 10 MG ORAL TABLET 179516 MONTELUKAST SODIUM Inactive PREDNISONE 20 MG ORAL TABLET 2 po qd x 5 days PREDNISONE 20 MG ORAL TABLET 376478 PREDNISONE Inactive Advance Directives Directive Description Start [...] AUTO - Chemistry sodium, serum 142 mmol/L 939-128 8799/07/17 carbon dioxide, venous blood 28.2 mmol/L 21.0-32.0 [...] Panel - Chemistry sodium, serum 141 mmol/L 926-391 0254/02/13 carbon dioxide, venous blood 23.9 mmol/L 21.0-32.0 [...] 6.9 % 4.3-6.0 sodium, serum 139 mmol/L 096-115 7527/01/04 potassium, serum 3.9 mmol/L 3.5-5.2 chloride, serum [...] 1.80 ng/mL 0.00-4.00 Lab Report: VITAMIN D, 25-HYDROXY/77226 - Chemistry vitamin D 25-hydroxy, serum 25 ng/mL 30-100 Encounters Code Encounter Date Provider Facility CPT-10009 Level 3 Est. Patient 13:59:07 CDT Renny Bella MD [facility] CPT-18531 Level 3 Est. Patient 16:04:17 CDT Robbie Busby MD [facility]-58497 Level 4 Est. Patient 09:50:01 DRIVEMATIC MACHINE OPERATOR Robbie Busby MD [facility] CPT-87148 Level 4 Est. Patient 09:42:08 DRIVEMATIC MACHINE OPERATOR Robbie Busby MD [facility]-14409 Level 4 Est. Patient 13:07:39 DRIVEMATIC MACHINE OPERATOR Robbie Busby MD [facility]-97640 Level 4 Est. Patient 15:23:44 DRIVEMATIC MACHINE OPERATOR Desmond Diaz DO [facility] CPT-79342 Level 3 Est. Patient 15:40:49 CDT Robbie Busby MD [facility]-60105 Level 4 Est. Patient 15:18:19 CDT Robbie Busby MD [facility]-55862 Level 3 Est. Patient 09:00:37 CDT Rober Rodríguez [facility]-99102 Level 3 Est. Patient 16:07:10 CDT Robbie Busby MD [facility]-41929 Level 4 Est. Patient 11:56:16 CDT Erin Mai [facility] CPT-96678 Level 3 Est. Patient 17:48:02 CDT Robbie Busby MD [facility]-25895 Level 4 Est. Patient 12:00:49 DRIVEMATIC MACHINE OPERATOR Rober Rodríguez [facility] CPT-99108 Level 3 Est. Patient 09:16:37 CDT Robbie Busby MD [facility]-71526 Level 3 Est. Patient 19:38:43 CDT Robbie Busby MD [facility]-17200 Level 3 Est. Patient 11:53:38 CDT Robbie Busby MD [facility] CPT-19202 Level 4 Est. Patient 12:52:22 CDT Rober Reynoldsneha ARGUELLO [facility] CPT-40653 Level 4 Est. Patient 22:55:17 CDT Robbie Busby MD [facility]-04664 Level 3 Est. Patient 12:38:24 CDT Desmond Diaz DO [facility] CPT-87052 Level 4 Est. Patient 11:25:03 DRIVEMATIC MACHINE OPERATOR Robbie Busby MD [facility] CPT-30174 Level 4 Est. Patient 14:50:10 CDT Robbie Busby MD [facility] CPT-94600 Level 4 Est. Patient 23:30:43 CDT Robbie Busby MD [facility] CPT-98637 Level 4 Est. Patient 10:30:43 CDT Robbie Busby MD [facility] CPT-52805 Level 3 Est. Patient 17:08:12 CDT Alex Shaw [facility] CPT-86711 Level 4 Est. Patient 17:51:38 CDT Robbie Busby MD [facility] CPT-94562 Level 4 Est. Patient 14:00:21 CDT Robbie Busby MD [facility] CPT-22652 Level 4 Est. Patient 12:46:48 CDT Robbie Busby MD [facility] CPT-77164 Level 4 Est. Patient 13:34:33 CDT Robbie Busby MD [facility] CPT-60793 Level 4 Est. Patient 16:58:28 CDT Robbie Busby MD [facility] CPT-46674 Level 3 Est. Patient 19:36:53 CDT [facility] CPT-07167 Level 3 Est. Patient 12:58:15 CDT Robbie Busby MD [facility] Procedures Code Procedure Name Date Entry Date Standard Description CPT-J1071 Depo Testosterone 200mg 16:17:45 CDT CPT-83458 Abx/Therapy Injection 16:17:45 CDT CPT-J1100 Decadron 8mg (Dexamethasone) 16:07:00 CDT CPT-J1040 Depo Medrol 80 mg (Methyl Prednisolone Acetate) 16:07: 00 CDT CPT-J1071 Depo Testosterone 200mg 09:01:06 CDT CPT-26386 Abx/Therapy Injection 09:01:06 CDT CPT-J1100 Decadron 8mg (Dexamethasone) 16:04:17 CDT CPT-J1040 Depo Medrol 80 mg (Methyl Prednisolone Acetate) 16:04: 17 CDT CPT-J1071 Depo Testosterone 200mg 08:56:46 CDT CPT-00568 Abx/Therapy Injection 08:56:45 CDT CPT-J1071 Depo Testosterone 200mg 08:26:27 CDT CPT-73333 Abx/Therapy Injection 08:26:27 CDT CPT-J1071 Depo Testosterone 200mg 10:27:10 CDT CPT-23959 Abx/Therapy Injection 10:27:10 CDT CPT-J1071 Depo Testosterone 200mg 16:10:29 DRIVEMATIC MACHINE OPERATOR CPT-19718 Abx/Therapy Injection 16:10:29 DRIVEMATIC MACHINE OPERATOR CPT-J1071 Depo Testosterone 200mg 16:13:47 DRIVEMATIC MACHINE OPERATOR CPT-53023 Abx/Therapy Injection 16:13:46 DRIVEMATIC MACHINE OPERATOR CPT-J1071 Depo Testosterone 200mg 15:33:58 DRIVEMATIC MACHINE OPERATOR CPT-96436 Abx/Therapy Injection 15:33:58 DRIVEMATIC MACHINE OPERATOR CPT-J1071 Depo Testosterone 200mg 09:38:36 DRIVEMATIC MACHINE OPERATOR CPT-06101 Abx/Therapy Injection 09:38:36 DRIVEMATIC MACHINE OPERATOR CPT-J1071 Depo Testosterone 200mg 10:22:56 DRIVEMATIC MACHINE OPERATOR CPT-55163 Abx/Therapy Injection 10:22:56 DRIVEMATIC MACHINE OPERATOR CPT-J1071 Depo Testosterone 200mg 15:40:23 CDT CPT-50243 Abx/Therapy Injection 15:40:23 CDT CPT-J1071 Depo Testosterone 200mg 14:20:43 CDT CPT-24457 Abx/Therapy Injection 14:20:43 CDT CPT-J1071 Depo Testosterone 200mg 14:17:22 CDT CPT-31871 Abx/Therapy Injection 14:17:22 CDT CPT-J1071 Depo Testosterone 200mg 09:03:53 CDT CPT-32576 Abx/Therapy Injection 09:03:53 CDT CPT-G0439 [facility] Annual Wellness Exam 16:47:44 CDT CPT-J1071 Depo Testosterone 200mg 09:06:28 CDT CPT-77364 Abx/Therapy Injection 09:06:28 CDT CPT-J1071 Depo Testosterone 200mg 08:30:01 CDT CPT-55657 Abx/Therapy Injection 08:30:01 CDT CPT-J1071 Depo Testosterone 200mg 08:24:00 CDT CPT-15026 Abx/Therapy Injection 08:24:00 CDT CPT-46043 Venipuncture Draw Fee 14:39:06 CDT CPT-54440 Ribs unilateral 2V - XRAY USE ONLY 12:10:11 CDT CPT-27297 First Vx - Ix admin for Medicare patients 16:32:53 CDT CPT-18715 Boostrix Intramuscular Suspension 5-2.5-18.5 16:32:53 CDT CPT-02189 TB Skin Test 11:42:28 CDT CPT-94570 Tdap 7yrs or > 11:42:28 CDT CPT-J0696 Rocephin 1000 mg (Ceftriaxone) 17:43:43 DRIVEMATIC MACHINE OPERATOR CPT-J1040 Depo Medrol 80 mg (Methyl Prednisolone Acetate) 17:43: 43 DRIVEMATIC MACHINE OPERATOR CPT-J1100 Decadron 8mg (Dexamethasone) 17:43:42 DRIVEMATIC MACHINE OPERATOR CPT-30853 Abx/Therapy Injection 17:43:42 DRIVEMATIC MACHINE OPERATOR CPT-30970 Abx/Therapy Injection 17:43:42 DRIVEMATIC MACHINE OPERATOR CPT-J1040 Depo Medrol 80 mg (Methyl Prednisolone Acetate) 09:43: 34 DRIVEMATIC MACHINE OPERATOR CPT-J1100 Decadron 8mg (Dexamethasone) 09:43:34 DRIVEMATIC MACHINE OPERATOR CPT-J0696 Rocephin 1gm Inj Solr 09:43:34 DRIVEMATIC MACHINE OPERATOR CPT-43231 Wound Culture - LAB USE ONLY 14:00:21 CDT CPT-I/D I/D Abscess 09:16:37 CDT CPT-83195 Venipuncture Draw Fee 15:20:23 CDT CPT-14214 Microalbumin - LAB USE ONLY 16:02:19 CDT CPT-62252 CBC - LAB USE ONLY 16:02:19 CDT CPT-61620 Venipuncture Draw Fee 16:02:19 CDT CPT-G0438 Initial Annual Wellness Exam 08:10:28 CDT CPT-67865 Venipuncture Draw Fee 13:07:17 CDT CPT-G0008 Administration of Influenza Virus Vaccine 16:09:59 CDT CPT-79461 Fluzone Quadrivalent Intramuscular Suspension 0.5 ML 16: 09:59 CDT CPT-16780 Spec Collection and Handling Fee 15:05:50 CDT
--- OUTSIDE RECORDS SUMMARY | 2018-04-18 12:51 | XMS REPORT | Clinical Summary ---
Author Author Admin, [facility] Organization [facility] Address Unknown Phone Unavailable Allergies, Adverse Reactions, [...] Low back pain, chronic 724.2 Active Robbie Busyb MD Lumbago Degenerative arthritis 715.90 Active Robbie [...] 1 tab by mouth twice daily TRIMETHOPRIM-SULFAMETHOXAZOLE 89115860642 No Longer Active Robbie Busby MD Active SPIRONOLACTONE 25 MG TAB 4 tablets by mouth daily SPIRONOLACTONE 19367170036 Active Robbie Busby MD Active HYDRALAZINE HCL 50 MG ORAL TABS TWO BY MOUTH THREE TIMES DAILY HYDRALAZINE HCL 69039030569 No Longer Active Jillina Frazell ALUMINUM SIDING MECHANIC Active HYDROCODONE-ACETAMINOPHEN 5-325 MG TABS 1 tab by mouth BID prn back pain 2013 HYDROCODONE-ACETAMINOPHEN 13590962269 No Longer Active Jillina Frazell ALUMINUM SIDING MECHANIC Active HYDROCHLOROTHIAZIDE TABS Take one by mouth daily HYDROCHLOROTHIAZIDE TABS 62569955002 No Longer Active Jillina Frazell ALUMINUM SIDING MECHANIC Active LAMISIL 125 MG ORAL PACK 1 TAB PO DAILY TERBINAFINE HCL 92779106302 No Longer Active Jillina Frazell ALUMINUM SIDING MECHANIC Active TRILEPTAL 150 MG ORAL TABS 1 TAB PO Q HS OXCARBAZEPINE 94942888875 No Longer Active Jillina Frazell ALUMINUM SIDING MECHANIC Active BETADINE 10 % EXT SOLN wash with solution to treat follicultis POVIDONE-IODINE 69382957906 No Longer Active Jillina Frazell ALUMINUM SIDING MECHANIC Active NYSTATIN 857235 UNIT/ML M/T SUSP 5mL po QID x 10 days NYSTATIN 54291086205 No Longer Active Erin Garsia APRN Active PREDNISONE 20 MG TAB 1 tablet twice daily for 2 days, then 1 tablet once daily for 2 days PREDNISONE 92670005483 No Longer Active Robbie Busby MD Active CEFDINIR 300 MG ORAL CAPS Take 1 cap po bid x 10 days CEFDINIR 42698286240 No Longer Active Robbie Busby MD Active AMLODIPINE BESYLATE 10 MG TABS 1 tablet by mouth daily AMLODIPINE BESYLATE 81658515585 Active Robbie Busby MD Active CARVEDILOL 25 MG TABS 1 & 1/2 TAB po BID CARVEDILOL 47006132384 Active Robbie Busby MD Active VITAMIN D3 74081 UNIT CAPS 2 CAPS PO WEEKLY CHOLECALCIFEROL 57856577494 Active Erin Garsia APRN Active NEXIUM 40 MG CPDR 1 cap by mouth daily ESOMEPRAZOLE MAGNESIUM 33483544059 Active Gali Sruthi Active PROTONIX 40 MG SOLR 1 po qday for acid reflux PANTOPRAZOLE SODIUM 60747850213 No Longer Active Gali Torresjuan carlos Active KEFLEX 500 MG CAP 1 po TID x 10 days CEPHALEXIN 75218250224 No Longer Active Robbie Busby MD Active FIORICET 50-300-40 MG ORAL CAPS take 1 tab po qday prn migraines. [id number] 49978581256 Active Robbie Busby MD Active TOPIRAMATE 50 MG ORAL TABS take 1 tab po BID for migraines. TOPIRAMATE 77427205273 Active Robbie Busby MD Active MECLIZINE HCL 25 MG TAB one 4 times a day as needed for dizziness MECLIZINE HCL 54413429342 Active Robbie Busby MD Active TEMAZEPAM 15 MG ORAL CAPS 1 TAB PO Q HS TEMAZEPAM 70826228232 Active Robbie Busby MD Active ALPRAZOLAM 2 MG ORAL TABS 1 TAB PO BID ALPRAZOLAM 43596258117 Active Robbie Busby MD Active FENOFIBRATE 145 MG TABS Take one by mouth daily FENOFIBRATE 10063836345 No Longer Active Robbie Busby MD Active SPIRONOLACTONE 50 MG TABS 1 tablet by mouth twice a day SPIRONOLACTONE 30193868041 No Longer Active Robbie Busby MD Active HYDRALAZINE HCL 25 MG TABS 1 tablet by mouth tid for hypertension HYDRALAZINE HCL 75955504274 No Longer Active Robbie Busby MD Active VIIBRYD 40 MG TABS take 1 tab po qday for depression. VILAZODONE HCL 73598323830 No Longer Active Robbie Busby MD Active TERBINAFINE HCL 250 MG TABS 1 tab po qday for foot infection 2014 TERBINAFINE HCL 04905995072 No Longer Active Robbie Busby MD Active GABAPENTIN 300 MG CAPS 1 po q hs for nerve pain GABAPENTIN 46383558202 Active Robbie Busby MD Active FLONASE 50 MCG/ACT SUSP 1 spray each nostril twice daily for allergies and runny nose FLUTICASONE PROPIONATE 49978831802 Active Robbie Busby MD Active CHERATUSSIN AC 100-10 MG/5ML ORAL SOLN 7.5 mL PO q 4-6 hrs PRN cough GUAIFENESIN-CODEINE 32548449088 No Longer Active Robbie Busby MD Active AZITHROMYCIN 250 MG ORAL TABS 2 tablets PO today---then, 1 tablet PO daily x 4 more days (and 1 optional refill) AZITHROMYCIN 60243988978 No Longer Active Robbie Busby MD Active CLONIDINE HCL 0.2 MG ORAL TABS 1 TAB BY MOUTH EVERY 8 HOURS CLONIDINE HCL 67327529129 Active Robbie Busby MD Active NORVASC 10 MG TAB 1 tablet by mouth daily AMLODIPINE BESYLATE 22471159941 No Longer Active Alex ALVAREZ Active IMDUR 60 MG TAB CR take 1 tab po qday for blood pressure ISOSORBIDE MONONITRATE Active Robbie Busby MD Active ISOSORBIDE DINITRATE 30 MG TABS Take one by mouth daily ISOSORBIDE DINITRATE 87238611676 No Longer Active Robbie Busby MD Active VIIBRYD 40 MG TABS 1 TA B PO DAILY VILAZODONE HCL 90964949854 Active Robbie Busby MD Active LORATADINE 10 MG TABS 1 tablet by mouth daily for congestion and allergies. LORATADINE 75036231376 Active Robbie Busby MD Active ZITHROMAX 250 MG TAB 2 po today, then 1 po q days 2-5 AZITHROMYCIN 68468124419 No Longer Active Robbie Busby MD Active [id number] 0.3 MG/24HR PTWK apply 2 patches q week for HTN CLONIDINE HCL 26251317695 Active Robbie Busby MD Active NITROSTAT 0.4 MG SUBL PRN NITROGLYCERIN 64151447453 Active Robbie Busby MD Active DOXAZOSIN MESYLATE 4 MG TABS Take one by mouth daily DOXAZOSIN MESYLATE 39838131910 Active Robbie Busby MD Active TOPROL XL 200 MG [id number] Take one by mouth daily METOPROLOL SUCCINATE 56455616608 Active Robbie Busby MD Active VENLAFAXINE HCL ER 150 MG [id number]-[id number] Take one by mouth daily VENLAFAXINE HCL 78352918239 Active Robbie Busby MD Active LIPITOR 40 MG TABS Take one by mouth daily ATORVASTATIN CALCIUM 87496272072 Active Robbie Busby MD Active ISOSORBIDE DINITRATE 30 MG TABS Take one by mouth daily ISOSORBIDE DINITRATE 30 MG TABS 679680 ISOSORBIDE DINITRATE Inactive NORVASC 10 MG TAB 1 tablet by mouth daily NORVASC 10 MG TAB 552635 AMLODIPINE BESYLATE Inactive AZITHROMYCIN 250 MG ORAL TABS 2 tablets PO today---then, 1 tablet PO daily x 4 more days (and 1 optional refill) AZITHROMYCIN 250 MG ORAL TABS 4425734 AZITHROMYCIN Inactive CHERATUSSIN AC 100-10 MG/5ML ORAL SOLN 7.5 mL PO q 4-6 hrs PRN cough CHERATUSSIN AC 100-10 MG/5ML ORAL SOLN 249936 GUAIFENESIN- CODEINE Inactive VIIBRYD 40 MG TABS take 1 tab po qday for depression. VIIBRYD 40 MG TABS VILAZODONE HCL Inactive HYDRALAZINE HCL 25 MG TABS 1 tablet by mouth tid for hypertension HYDRALAZINE HCL 25 MG TABS 451036 HYDRALAZINE HCL Inactive SPIRONOLACTONE 50 MG TABS 1 tablet by mouth twice a day SPIRONOLACTONE 50 MG TABS 049936 SPIRONOLACTONE Inactive FENOFIBRATE 145 MG TABS Take one by mouth daily FENOFIBRATE 145 MG TABS 811878 FENOFIBRATE Inactive PROTONIX 40 MG SOLR 1 po qday for acid reflux PROTONIX 40 MG SOLR 627496 PANTOPRAZOLE SODIUM Inactive CEFDINIR 300 MG ORAL CAPS Take 1 cap po bid x 10 days CEFDINIR 300 MG ORAL CAPS 577543 CEFDINIR Inactive PREDNISONE 20 MG TAB 1 tablet twice daily for 2 days, then 1 tablet once daily for 2 days PREDNISONE 20 MG TAB 645697 PREDNISONE Inactive NYSTATIN 486859 UNIT/ML M/T SUSP 5mL po QID x 10 days NYSTATIN 882186 UNIT/ML M/T SUSP 928071 NYSTATIN Inactive BETADINE 10 % EXT SOLN wash with 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 BETADINE 10 % EXT SOLN 3658211 POVIDONE-IODINE Inactive TRILEPTAL 150 MG ORAL TABS 1 TAB PO Q HS TRILEPTAL 150 MG ORAL TABS 811461 OXCARBAZEPINE Inactive LAMISIL 125 MG ORAL PACK 1 TAB PO DAILY LAMISIL 125 MG ORAL PACK TERBINAFINE HCL Inactive HYDROCHLOROTHIAZIDE TABS Take one by mouth daily HYDROCHLOROTHIAZIDE TABS HYDROCHLOROTHIAZIDE TABS Inactive HYDROCODONE-ACETAMINOPHEN 5-325 MG TABS 1 tab by mouth BID prn back pain 2013 HYDROCODONE-ACETAMINOPHEN 5-325 MG TABS 501388 HYDROCODONE -ACETAMINOPHEN Inactive HYDRALAZINE HCL 50 MG ORAL TABS TWO BY MOUTH THREE TIMES DAILY HYDRALAZINE HCL 50 MG ORAL TABS 147310 HYDRALAZINE HCL Inactive ZITHROMAX 250 MG TAB 2 po today, then 1 po q days 2-5 ZITHROMAX 250 MG TAB 7456988 AZITHROMYCIN Inactive TERBINAFINE HCL 250 MG TABS 1 tab po qday for foot infection 2014 TERBINAFINE HCL 250 MG TABS 681282 TERBINAFINE HCL Inactive KEFLEX 500 MG CAP 1 po TID x 10 days KEFLEX 500 MG CAP 174763 CEPHALEXIN Inactive BACTRIM DS 800-160 MG TAB 1 tab by mouth twice daily BACTRIM DS 800-160 MG TAB 273343 TRIMETHOPRIM-SULFAMETHOXAZOLE Inactive Advance Directives Directive Description Start [...] Acid - Chemistry sodium, serum 139 mmol/L 293-849 9948/04/22 carbon dioxide, venous blood 29.4 mmol/L 21.0-32.0 [...] to Follow Negative Lab Report: VITAMIN D, 25-HYDROXY/12175 - Chemistry vitamin D 25-hydroxy, serum 23 ng/mL 30-100 Encounters Code Encounter Date Provider Facility [facility]-[id number] Level 3 Est. Patient 09:16:37 CDT Robbie Busby MD [facility]-64211 Level 3 Est. Patient 19:38:43 CDT Rob[address] Bus[address] MD [facility]-16063 Level 3 Est. Patient 11:53:38 CDT Robbie Busby MD [facility]-63129 Level 4 Est. Patient 12:52:22 CDT Rober Rodríguez APRN [facility] CPT-34608 Level 4 Est. Patient 22:55:17 CDT Robbie Busby MD [facility] CPT-85972 Level 3 Est. Patient 12:38:24 CDT Desmond Diaz DO [facility] CPT-02455 Level 4 Est. 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 Patient 14:50:10 CDT Robbie Busby MD [facility] CPT-45867 Level 4 Est. Patient 23:30:43 CDT Robibe Busby MD [facility] CPT-87495 Level 4 Est. Patient 10:30:43 CDT Robbie Busby MD [facility] CPT-23549 Level 3 Est. Patient 17:08:12 CDT Alex ALVAREZ [facility] CPT-90653 Level 4 Est. Patient 17:51:38 CDT Robbie Busby MD [facility] CPT-54580 Level 4 Est. Patient 14:00:21 CDT Robbie Busby MD [facility] CPT-37837 Level 4 Est. Patient 12:46:48 CDT Robbie Busby MD [facility] CPT-80199 Level 4 Est. Patient 13:34:33 CDT Robbie Busby MD [facility] CPT-66793 Level 4 Est. Patient 16:58:28 CDT Robbie Busby MD [facility] CPT-15280 Level 3 Est. Patient 19:36:53 CDT Alex ALVAREZ [facility] CPT-90805 Level 3 Est. Patient 12:58:15 CDT Robbie Busby MD [facility] Procedures Code Procedure Name Date Entry Date Standard Description CPT-I/D I/D Abscess 09:16:37 CDT CPT-66889 Venipuncture Draw Fee 15:20:23 CDT CPT-90889 Microalbumin - LAB USE ONLY 16:02:19 CDT CPT-51877 CBC - LAB USE ONLY 16:02:19 CDT CPT-11114 Venipuncture Draw Fee 16:02:19 CDT CPT-G0438 Initial Annual Wellness Exam 08:10:28 CDT CPT-73947 Venipuncture Draw Fee 13:07:17 CDT CPT-G0008 Administration of Influenza Virus Vaccine 16:09:59 CDT CPT-98360 Fluzone Quadrivalent Intramuscular Suspension 0.5 ML 16: 09:59 CDT CPT-69952 Spec Collection and Handling Fee 15:05:50 CDT
--- OUTSIDE RECORDS SUMMARY | 2018-04-18 12:51 | XMS REPORT | Clinical Summary ---
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 Desmond Diaz DO Other malignant secondary hypertension Tachycardia 785.0 Active Rober Rodríguez PRIMARY TEACHER Tachycardia, unspecified Insect bite, infected 919.5 Resolved Desmond Diaz DO Insect bite, nonvenomous, of other, multiple, and unspecified sites, infected Abscess, skin 682.9 Resolved Desmond Diaz DO Cellulitis and abscess of unspecified sites URI 465.9 Resolved Desmond Diaz DO Acute upper respiratory infections of unspecified site Hypertension 401.9 Active Rober Rodríguez PRIMARY TEACHER Unspecified essential hypertension Sinusitis - acute 461.9 [...] Hypogonadism, low testosterone 257.2 Active Erin Mai PRIMARY TEACHER Other testicular hypofunction Low back pain, chronic [...] 36.0-36.9, adult Sinusitis ICD-461.9 Inactive Emily Atwood DELI ASSOCIATE 2017 Low back pain, acute ICD-724.2 Inactive Emily Atwood DELI ASSOCIATE Low back pain, chronic ICD-724.2 Inactive Emily Atwood DELI ASSOCIATE Bronchitis, acute ICD-466.0 Inactive Emily Atwood DELI ASSOCIATE Onychomycosis, toenails ICD-110.1 Inactive Emily Atwood DELI ASSOCIATE Dizziness ICD-780.4 Inactive Emily Atwood DELI ASSOCIATE 2017 Folliculitis ICD-704.8 Inactive Emily Atwood DELI ASSOCIATE Pharyngitis-Acute ICD-462 Inactive Emily Atwood DELI ASSOCIATE Fatigue ICD-780.79 Inactive Emily Atwood DELI ASSOCIATE 09/20 Hypertension, secondary, malignant ICD-405.09 Inactive Emily Atwood DELI ASSOCIATE Insect bite, infected ICD-919.5 Inactive Emily Atwood DELI ASSOCIATE Abscess, skin ICD-682.9 Inactive Emily Atwood DELI ASSOCIATE URI ICD-465.9 Inactive Emily Atwood DELI ASSOCIATE Sinusitis - acute ICD-461.9 Inactive Emily Atwood DELI ASSOCIATE Acute confusion ICD-293.0 Inactive Emily Atwood DELI ASSOCIATE Headache ICD-784.0 Inactive Emily Atwood DELI ASSOCIATE 09/20 Back pain ICD-724.5 Inactive Emily Atwood DELI ASSOCIATE 2017 Rib pain, right sided ICD-786.50 Inactive Emily Atwood DELI ASSOCIATE Myalgias ICD-729.1 Inactive Emily Atwood DELI ASSOCIATE 09/20 URI ICD-465.9 Inactive Emily Atwood DELI ASSOCIATE Bronchitis-Acute ICD-466.0 Inactive Desmond Diaz DO Medication List Medication Instructions Start Date Stop Date Generic Name NDC Status Provider Patient Instruction MONTELUKAST SODIUM 10 MG ORAL TABLET 1 tab po daily for allergies MONTELUKAST SODIUM 77610724760 Active JONATHAN Moncada Active IMDUR 60 MG ORAL TABLET EXTENDED RELEASE 24 HOUR 1 po q day ISOSORBIDE MONONITRATE 95474887534 Active Emma Hernandez Active METOPROLOL SUCCINATE ER 200 MG ORAL TABLET EXTENDED RELEASE 24 HOUR take 1 tab po qday for high blood pressure and rapid pulse METOPROLOL SUCCINATE 21185050919 Active Robbie Busby MD Active [id number]-[id number]-4 0.3 MG/24HR TRANSDERMAL PATCH WEEKLY apply 2 patches q week for HTN CLONIDINE HCL 05037868819 No Longer Active Robbie Busby MD Active IMDUR 60 MG ORAL TABLET EXTENDED RELEASE 24 HOUR take 1 tab po qday for blood pressure ISOSORBIDE MONONITRATE 37026809787 No Longer Active Robbie Busby MD Active TEMAZEPAM 15 MG ORAL CAPSULE 1 TAB PO Q HS TEMAZEPAM 11590995425 No Longer Active Robbie Busby MD Active TOPIRAMATE 50 MG ORAL TABLET 1 po BID for migraines TOPIRAMATE 65620354869 No Longer Active Robbie Busby MD Active CYCLOBENZAPRINE HCL 10 MG ORAL TABLET 1 tablet by mouth three times daily as needed for muscle spasm/pain CYCLOBENZAPRINE HCL 65668700757 No Longer Active Robbie Busby MD Active TOPROL XL 200 MG ORAL TABLET EXTENDED RELEASE 24 HOUR Take one by mouth daily METOPROLOL SUCCINATE 65575991484 No Longer Active Robbie Busby MD Active METFORMIN HCL 500 MG ORAL TABLET 1 tablet by mouth daily for diabetes type 2 METFORMIN HCL 55067622125 Active Robbie Busby MD Active SINGULAIR 10 MG ORAL TABLET 1 po qday for allergies. MONTELUKAST SODIUM 88262529815 No Longer Active Robbie Busby MD Active PREDNISONE 20 MG ORAL TABLET two tabs by mouth today, then one tab by mouth days two and three PREDNISONE 57489240992 No Longer Active Robbie Busby MD Active AZITHROMYCIN 250 MG ORAL TABLET 2 po qd x 1 day, then 1 po qd x 4 days 09/20 AZITHROMYCIN 29244283047 No Longer Active Desmond Diaz DO Active TOPIRAMATE 50 MG ORAL TABLET take 1 tab po BID for migraines. TOPIRAMATE 96852810038 No Longer Active Desmond Diaz DO Active CYCLOBENZAPRINE HCL 10 MG ORAL TABLET 1 po TID PRN muscle spasm/pain for 10 days CYCLOBENZAPRINE HCL 84202245500 No Longer Active Desmond Diaz DO Active GUAIFENESIN ER 600 MG ORAL TABLET EXTENDED RELEASE 12 HOUR 1 tab po q am 2016 GUAIFENESIN 04280525028 No Longer Active Robbie Busby MD Active DIVALPROEX SODIUM ER 500 MG ORAL TABLET EXTENDED RELEASE 24 HOUR Once daily DIVALPROEX SODIUM 01008050400 Active Robbie Busby MD Active DEPO-TESTOSTERONE 200 MG/ML INTRAMUSCULAR SOLUTION 1 IM Injections every 2 weeks for low testosterone TESTOSTERONE CYPIONATE 73173440516 Active Zulema Blank LPN Active FLUTICASONE PROPIONATE 50 MCG/ACT NASAL SUSPENSION 2 sprays per nostril bid for 1 week, then 1 spray bid FLUTICASONE PROPIONATE 67002119240 Active Rober Rodríguez APRN Active HYDRALAZINE HCL 25 MG ORAL TABLET Take 1 tab BID. HYDRALAZINE HCL 50622176520 Active Rober Rodríguez PRIMARY TEACHER Active VITAMIN D3 10570 UNIT ORAL TABLET 2 po weekly CHOLECALCIFEROL 73082100258 Active Robbie Busby MD Active OXYCODONE HCL ER 10 MG ORAL TABLET ER 12 HOUR ABUSE-DETERRENT 1 tab po 3 times qd. OXYCODONE HCL 62903487405 Active Robbie Busby MD Active NITROSTAT 0.4 MG SUBLINGUAL TABLET SUBLINGUAL PRN NITROGLYCERIN 90631118262 No Longer Active Robbie Busby MD Active LORATADINE 10 MG ORAL TABLET 1 tablet by mouth daily for congestion and allergies. LORATADINE 11222171965 No Longer Active Robbie Busby MD Active FLONASE 50 MCG/ACT NASAL SUSPENSION 1 spray each nostril twice daily for allergies and runny nose FLUTICASONE PROPIONATE 15336093176 No Longer Active Robbie Busby MD Active FIORICET 50-300-40 MG ORAL CAPSULE take 1 tab po qday prn migraines. VMIJHSAPCO-JRFT-BQXLFTUC 57440517207 No Longer Active Robbie Busby MD Active VITAMIN D3 64877 UNIT ORAL CAPSULE 2 CAPS PO WEEKLY CHOLECALCIFEROL 74298401295 No Longer Active Robbie Busby MD Active CYCLOBENZAPRINE HCL 10 MG ORAL TABLET 1 tablet by mouth three times daily as needed for muscle spasm/pain for 10 days CYCLOBENZAPRINE HCL 61750502703 No Longer Active Robbie Busby MD Active PREDNISONE 20 MG ORAL TABLET take 3 tabs daily for 3 days, 2 tabs daily for 3 days, 1 tab daily for 3 days, 1/2 tab daily for 4 days PREDNISONE 35478062348 No Longer Active Erin Arell PRIMARY TEACHER Active CLONIDINE HCL 0.2 MG ORAL TABLET 1 TAB BY MOUTH EVERY 8 HOURS CLONIDINE HCL 98719059865 No Longer Active Erin Arell PRIMARY TEACHER Active MECLIZINE HCL 25 MG ORAL TABLET one 4 times a day as needed for dizziness MECLIZINE HCL 79003517399 No Longer Active Erin Arell PRIMARY TEACHER Active SPIRONOLACTONE 25 MG ORAL TABLET 4 tablets by mouth daily SPIRONOLACTONE 31621268333 No Longer Active Erin Arell PRIMARY TEACHER Active LEVAQUIN 500 MG ORAL TABLET 1 tablet by mouth daily for 7 days LEVOFLOXACIN 95565450147 No Longer Active Erin Arell PRIMARY TEACHER Active BACTRIM DS 800-160 MG ORAL TABLET 1 tab by mouth twice daily 2015 TRIMETHOPRIM-SULFAMETHOXAZOLE 19480994415 No Longer Active Robbie Busby MD Active HYDRALAZINE HCL 50 MG ORAL TABLET TWO BY MOUTH THREE TIMES DAILY HYDRALAZINE HCL 22453130259 No Longer Active Jillina Frazell PRIMARY TEACHER Active HYDROCODONE-ACETAMINOPHEN 5-325 MG ORAL TABLET 1 tab by mouth BID prn back pain HYDROCODONE-ACETAMINOPHEN 48536725804 No Longer Active Jillina Frazell PRIMARY TEACHER Active HYDROCHLOROTHIAZIDE TABLET Take one by mouth daily HYDROCHLOROTHIAZIDE TABS 48109770668 No Longer Active Jillina Frazell PRIMARY TEACHER Active LAMISIL 125 MG ORAL PACKET 1 TAB PO DAILY TERBINAFINE HCL 68993680358 No Longer Active Jillina Frazell PRIMARY TEACHER Active TRILEPTAL 150 MG ORAL TABLET 1 TAB PO Q HS OXCARBAZEPINE 40427411626 No Longer Active Jillina Frazell PRIMARY TEACHER Active BETADINE 10 % EXTERNAL SOLUTION wash with solution to treat follicultis 07/29 POVIDONE-IODINE 04745340953 No Longer Active Rober Rodríguez APRN Active NYSTATIN 745569 UNIT/ML MOUTH/THROAT SUSPENSION 5mL po QID x 10 days NYSTATIN 71759921913 No Longer Active Erin Mai APRN Active PREDNISONE 20 MG ORAL TABLET 1 tablet twice daily for 2 days, then 1 tablet once daily for 2 days PREDNISONE 59517236175 No Longer Active Robbie Busby MD Active CEFDINIR 300 MG ORAL CAPSULE Take 1 cap po bid x 10 days CEFDINIR 54652645850 No Longer Active Robbie Busby MD Active AMLODIPINE BESYLATE 10 MG ORAL TABLET 1 tablet by mouth daily AMLODIPINE BESYLATE 42914641992 Active Robbie Busby MD Active CARVEDILOL 25 MG ORAL TABLET 1 & 1/2 TAB po BID CARVEDILOL 40543825972 Active Robbie Busby MD Active NEXIUM 40 MG ORAL CAPSULE DELAYED RELEASE 1 cap by mouth daily ESOMEPRAZOLE MAGNESIUM 16364652684 Active Robbie Busby MD Active PROTONIX 40 MG INTRAVENOUS SOLUTION RECONSTITUTED 1 po qday for acid reflux PANTOPRAZOLE SODIUM 17249719228 No Longer Active Gali Raida Active KEFLEX 500 MG ORAL CAPSULE 1 po TID x 10 days CEPHALEXIN 68840769125 No Longer Active Robbie Busby MD Active ALPRAZOLAM 2 MG ORAL TABLET 1 TAB PO BID ALPRAZOLAM 54472888836 Active Robbie Busby MD Active FENOFIBRATE 145 MG ORAL TABLET Take one by mouth daily FENOFIBRATE 19895777148 No Longer Active Robbie Busby MD Active SPIRONOLACTONE 50 MG ORAL TABLET 1 tablet by mouth twice a day SPIRONOLACTONE 73735670602 No Longer Active Robbie Busby MD Active HYDRALAZINE HCL 25 MG ORAL TABLET 1 tablet by mouth tid for hypertension 2013 HYDRALAZINE HCL 65335154373 No Longer Active Robbie Busby MD Active VIIBRYD 40 MG ORAL TABLET take 1 tab po qday for depression. 2014 VILAZODONE HCL 72988870823 No Longer Active Robbie Busby MD Active TERBINAFINE HCL 250 MG ORAL TABLET 1 tab po qday for foot infection TERBINAFINE HCL 61980074059 No Longer Active Robbie Busby MD Active GABAPENTIN 300 MG ORAL CAPSULE 1 po q hs for nerve pain GABAPENTIN 38455853493 Active Robbie Busby MD Active CHERATUSSIN AC 100-10 MG/5ML ORAL SOLUTION 7.5 mL PO q 4-6 hrs PRN cough 2014 GUAIFENESIN-CODEINE 15049757113 No Longer Active Robbie Busby MD Active AZITHROMYCIN 250 MG ORAL TABLET 2 tablets PO today---then, 1 tablet PO daily x 4 more days (and 1 optional refill) AZITHROMYCIN 65021099080 No Longer Active Robbie Busby MD Active NORVASC 10 MG ORAL TABLET 1 tablet by mouth daily AMLODIPINE BESYLATE 98655583745 No Longer Active Alex ALVAREZ Active ISOSORBIDE DINITRATE 30 MG ORAL TABLET Take one by mouth daily ISOSORBIDE DINITRATE 27737295252 No Longer Active Robbie Busby MD Active VIIBRYD 40 MG ORAL TABLET 1 TA B PO DAILY VILAZODONE HCL 44445029380 Active Robbie Busby MD Active ZITHROMAX 250 MG ORAL TABLET 2 po today, then 1 po q days 2-5 AZITHROMYCIN 46481588199 No Longer Active Robbie Busby MD Active DOXAZOSIN MESYLATE 4 MG ORAL TABLET Take one by mouth daily DOXAZOSIN MESYLATE 21729435411 Active Robbie Busby MD Active VENLAFAXINE HCL ER 150 MG ORAL TABLET EXTENDED RELEASE 24 HOUR Take one by mouth daily VENLAFAXINE HCL 31337257231 Active Robbie Busby MD Active LIPITOR 40 MG ORAL TABLET Take one by mouth daily ATORVASTATIN CALCIUM 18598784394 Active Robbie Busby MD Active ISOSORBIDE DINITRATE 30 MG ORAL TABLET Take one by mouth daily ISOSORBIDE DINITRATE 30 MG ORAL TABLET 174221 ISOSORBIDE DINITRATE Inactive NORVASC 10 MG ORAL TABLET 1 tablet by mouth daily NORVASC 10 MG ORAL TABLET 750509 AMLODIPINE BESYLATE Inactive AZITHROMYCIN 250 MG ORAL TABLET 2 tablets PO today---then, 1 tablet PO daily x 4 more days (and 1 optional refill) AZITHROMYCIN 250 MG ORAL TABLET 133020 AZITHROMYCIN Inactive CHERATUSSIN AC 100-10 MG/5ML ORAL SOLUTION 7.5 mL PO q 4-6 hrs PRN cough 2014 CHERATUSSIN AC 100-10 MG/5ML ORAL SOLUTION 466526 GUAIFENESIN-CODEINE Inactive VIIBRYD 40 MG ORAL TABLET take 1 tab po qday for depression. 2014 VIIBRYD 40 MG ORAL TABLET VILAZODONE HCL Inactive HYDRALAZINE HCL 25 MG ORAL TABLET 1 tablet by mouth tid for hypertension 2013 HYDRALAZINE HCL 25 MG ORAL TABLET 562302 HYDRALAZINE HCL Inactive SPIRONOLACTONE 50 MG ORAL TABLET 1 tablet by mouth twice a day SPIRONOLACTONE 50 MG ORAL TABLET 521154 SPIRONOLACTONE Inactive FENOFIBRATE 145 MG ORAL TABLET Take one by mouth daily FENOFIBRATE 145 MG ORAL TABLET 572611 FENOFIBRATE Inactive PROTONIX 40 MG INTRAVENOUS SOLUTION RECONSTITUTED 1 po qday for acid reflux PROTONIX 40 MG INTRAVENOUS SOLUTION RECONSTITUTED 869313 PANTOPRAZOLE SODIUM Inactive CEFDINIR 300 MG ORAL CAPSULE Take 1 cap po bid x 10 days CEFDINIR 300 MG ORAL CAPSULE 053607 CEFDINIR Inactive PREDNISONE 20 MG ORAL TABLET 1 tablet twice daily for 2 days, then 1 tablet once daily for 2 days PREDNISONE 20 MG ORAL TABLET 830201 PREDNISONE Inactive NYSTATIN 398403 UNIT/ML MOUTH/THROAT SUSPENSION 5mL po QID x 10 days NYSTATIN 710424 UNIT/ML MOUTH/THROAT SUSPENSION 783315 NYSTATIN Inactive BETADINE 10 % EXTERNAL SOLUTION wash with solution to treat follicultis 07/29 BETADINE 10 % EXTERNAL SOLUTION 1985591 POVIDONE-IODINE Inactive TRILEPTAL 150 MG ORAL TABLET 1 TAB PO Q HS TRILEPTAL 150 MG ORAL TABLET 355056 OXCARBAZEPINE Inactive LAMISIL 125 MG ORAL PACKET 1 TAB PO DAILY LAMISIL 125 MG ORAL PACKET TERBINAFINE HCL Inactive HYDROCHLOROTHIAZIDE TABLET Take one by mouth daily HYDROCHLOROTHIAZIDE TABLET HYDROCHLOROTHIAZIDE TABS Inactive HYDROCODONE-ACETAMINOPHEN 5-325 MG ORAL TABLET 1 tab by mouth BID prn back pain HYDROCODONE-ACETAMINOPHEN 5-325 MG ORAL TABLET 921604 HYDROCODONE-ACETAMINOPHEN Inactive HYDRALAZINE HCL 50 MG ORAL TABLET TWO BY MOUTH THREE TIMES DAILY HYDRALAZINE HCL 50 MG ORAL TABLET 774456 HYDRALAZINE HCL Inactive LEVAQUIN 500 MG ORAL TABLET 1 tablet by mouth daily for 7 days LEVAQUIN 500 MG ORAL TABLET 211699 LEVOFLOXACIN Inactive SPIRONOLACTONE 25 MG ORAL TABLET 4 tablets by mouth daily SPIRONOLACTONE 25 MG ORAL TABLET 955456 SPIRONOLACTONE Inactive MECLIZINE HCL 25 MG ORAL TABLET one 4 times a day as needed for dizziness MECLIZINE HCL 25 MG ORAL TABLET 231942 MECLIZINE HCL Inactive CLONIDINE HCL 0.2 MG ORAL TABLET 1 TAB BY MOUTH EVERY 8 HOURS CLONIDINE HCL 0.2 MG ORAL TABLET 704371 CLONIDINE HCL Inactive CYCLOBENZAPRINE HCL 10 MG ORAL TABLET 1 tablet by mouth three times daily as needed for muscle spasm/pain for 10 days CYCLOBENZAPRINE HCL 10 MG ORAL TABLET 416825 CYCLOBENZAPRINE HCL Inactive VITAMIN D3 83940 UNIT ORAL CAPSULE 2 CAPS PO WEEKLY VITAMIN D3 31093 UNIT ORAL CAPSULE CHOLECALCIFEROL Inactive FIORICET 50-300-40 MG ORAL CAPSULE take 1 tab po qday prn migraines. FIORICET 50-300-40 MG ORAL CAPSULE 889578 BUTALBITAL-APAP- CAFFEINE Inactive FLONASE 50 MCG/ACT NASAL SUSPENSION 1 spray each nostril twice daily for allergies and runny nose FLONASE 50 MCG/ACT NASAL SUSPENSION 4196532 FLUTICASONE PROPIONATE Inactive LORATADINE 10 MG ORAL TABLET 1 tablet by mouth daily for congestion and allergies. LORATADINE 10 MG ORAL TABLET 851201 LORATADINE Inactive NITROSTAT 0.4 MG SUBLINGUAL TABLET SUBLINGUAL PRN NITROSTAT 0.4 MG SUBLINGUAL TABLET SUBLINGUAL 086017 NITROGLYCERIN Inactive GUAIFENESIN ER 600 MG ORAL TABLET EXTENDED RELEASE 12 HOUR 1 tab po q am 2016 GUAIFENESIN ER 600 MG ORAL TABLET EXTENDED RELEASE 12 HOUR GUAIFENESIN Inactive CYCLOBENZAPRINE HCL 10 MG ORAL TABLET 1 po TID PRN muscle spasm/pain for 10 days CYCLOBENZAPRINE HCL 10 MG ORAL TABLET 395079 CYCLOBENZAPRINE HCL Inactive TOPIRAMATE 50 MG ORAL TABLET take 1 tab po BID for migraines. TOPIRAMATE 50 MG ORAL TABLET 091644 TOPIRAMATE Inactive PREDNISONE 20 MG ORAL TABLET two tabs by mouth today, then one tab by mouth days two and three PREDNISONE 20 MG ORAL TABLET 293888 PREDNISONE Inactive TOPROL XL 200 MG ORAL TABLET EXTENDED RELEASE 24 HOUR Take one by mouth daily TOPROL XL 200 MG ORAL TABLET EXTENDED RELEASE 24 HOUR METOPROLOL SUCCINATE Inactive CYCLOBENZAPRINE HCL 10 MG ORAL TABLET 1 tablet by mouth three times daily as needed for muscle spasm/pain CYCLOBENZAPRINE HCL 10 MG ORAL TABLET 762874 CYCLOBENZAPRINE HCL Inactive TOPIRAMATE 50 MG ORAL TABLET 1 po BID for migraines TOPIRAMATE 50 MG ORAL TABLET 597789 TOPIRAMATE Inactive TEMAZEPAM 15 MG ORAL CAPSULE 1 TAB PO Q HS TEMAZEPAM 15 MG ORAL CAPSULE 889448 TEMAZEPAM Inactive IMDUR 60 MG ORAL TABLET EXTENDED RELEASE 24 HOUR take 1 tab po qday for blood pressure IMDUR 60 MG ORAL TABLET EXTENDED RELEASE 24 HOUR ISOSORBIDE MONONITRATE Inactive [id number] 0.3 MG/24HR TRANSDERMAL PATCH WEEKLY apply 2 patches q week for HTN [id number]-FRI-3 0.3 MG/24HR TRANSDERMAL PATCH WEEKLY 053939 CLONIDINE HCL Inactive ZITHROMAX 250 MG ORAL TABLET 2 po today, then 1 po q days 2-5 ZITHROMAX 250 MG ORAL TABLET 140082 AZITHROMYCIN Inactive TERBINAFINE HCL 250 MG ORAL TABLET 1 tab po qday for foot infection TERBINAFINE HCL 250 MG ORAL TABLET 319600 TERBINAFINE HCL Inactive KEFLEX 500 MG ORAL CAPSULE 1 po TID x 10 days KEFLEX 500 MG ORAL CAPSULE 997778 CEPHALEXIN Inactive BACTRIM DS 800-160 MG ORAL TABLET 1 tab by mouth twice daily 2015 BACTRIM DS 800-160 MG ORAL TABLET 673059 TRIMETHOPRIM- SULFAMETHOXAZOLE Inactive PREDNISONE 20 MG ORAL TABLET take 3 tabs daily for 3 days, 2 tabs daily for 3 days, 1 tab daily for 3 days, 1/2 tab daily for 4 days PREDNISONE 20 MG ORAL TABLET 254039 PREDNISONE Inactive AZITHROMYCIN 250 MG ORAL TABLET 2 po qd x 1 day, then 1 po qd x 4 days 09/20 AZITHROMYCIN 250 MG ORAL TABLET 234436 AZITHROMYCIN Inactive SINGULAIR 10 MG ORAL TABLET 1 po qday for allergies. SINGULAIR 10 MG ORAL TABLET 665221 MONTELUKAST SODIUM Inactive Advance Directives Directive Description [...] AUTO - Chemistry sodium, serum 142 mmol/L 217-564 1791/07/17 carbon dioxide, venous blood 28.2 mmol/L [...] Panel - Chemistry sodium, serum 141 mmol/L 380-490 2931/02/13 carbon dioxide, venous blood 23.9 mmol/L 21.0-32.0 [...] 6.9 % 4.3-6.0 sodium, serum 139 mmol/L 333-648 0109/01/04 potassium, serum 3.9 mmol/L 3.5-5.2 chloride, serum [...] 1.80 ng/mL 0.00-4.00 Lab Report: VITAMIN D, 25-HYDROXY/77688 - Chemistry vitamin D 25-hydroxy, serum 25 ng/mL 30-100 Encounters Code Encounter Date Provider Facility CPT-61485 Level 3 Est. Patient 16:04:17 CDT Robbie Busby MD [facility] CPT-15556 Level 4 Est. Patient 09:50:01 HEAD BOOKKEEPER Robbie Busby MD [facility] CPT-28203 Level 4 Est. Patient 09:42:08 HEAD BOOKKEEPER Robbie Busby MD [facility] CPT-67054 Level 4 Est. Patient 13:07:39 HEAD BOOKKEEPER Robbie Busby MD [facility] CPT-33639 Level 4 Est. Patient 15:23:44 HEAD BOOKKEEPER Desmond Diaz DO [facility] CPT-00293 Level 3 Est. Patient 15:40:49 CDT Robbie Busby MD [facility] CPT-68760 Level 4 Est. Patient 15:18:19 CDT Robbie Busby MD [facility] CPT-75205 Level 3 Est. Patient 09:00:37 CDT Rober Rodolfoneha [facility] CPT-23211 Level 3 Est. Patient 16:07:10 CDT Robbie Busby MD [facility] CPT-05600 Level 4 Est. Patient 11:56:16 CDT Erin Miguelzane [facility] CPT-78895 Level 3 Est. Patient 17:48:02 CDT Robbie Busby MD [facility] CPT-31760 Level 4 Est. Patient 12:00:49 HEAD BOOKKEEPER Rober Rodríguez [facility] CPT-88007 Level 3 Est. Patient 09:16:37 CDT Robbie Busby MD [facility] CPT-80252 Level 3 Est. Patient 19:38:43 CDT Robbie Busby MD [facility] CPT-20032 Level 3 Est. Patient 11:53:38 CDT Robbie Busby MD [facility] CPT-59495 Level 4 Est. Patient 12:52:22 CDT Rober Rodríguez [facility] CPT-20795 Level 4 Est. Patient 22:55:17 CDT Robbie Busby MD [facility] CPT-89364 Level 3 Est. Patient 12:38:24 CDT Desmond Diaz DO [facility] CPT-72637 Level 4 Est. Patient 11:25:03 HEAD BOOKKEEPER Robbie Busby MD [facility] CPT-23828 Level 4 Est. Patient 14:50:10 CDT Robbie Busby MD [facility] CPT-68693 Level 4 Est. Patient 23:30:43 CDT Robbie Busby MD [facility] CPT-67161 Level 4 Est. Patient 10:30:43 CDT Robbie Busby MD [facility] CPT-45991 Level 3 Est. Patient 17:08:12 CDT Alex ALVAREZ [facility] CPT-31646 Level 4 Est. Patient 17:51:38 CDT Robbie Busby MD [facility] CPT-50074 Level 4 Est. Patient 14:00:21 CDT Robbie Busby MD [facility] CPT-71986 Level 4 Est. Patient 12:46:48 CDT Robbie Busby MD [facility] CPT-17396 Level 4 Est. Patient 13:34:33 CDT Robbie Busby MD [facility] CPT-73198 Level 4 Est. Patient 16:58:28 CDT Robbie Busby MD [facility] CPT-93277 Level 3 Est. Patient 19:36:53 CDT Alex Shaw [facility] CPT-25118 Level 3 Est. Patient 12:58:15 CDT Robbie Busby MD [facility] Procedures Code Procedure Name Date Entry Date Standard Description CPT-J1071 Depo Testosterone 200mg 09:01:06 CDT CPT-70187 Abx/Therapy Injection 09:01:06 CDT CPT-J1100 Decadron 8mg (Dexamethasone) 16:04:17 CDT CPT-J1040 Depo Medrol 80 mg (Methyl Prednisolone Acetate) 16:04: 17 CDT CPT-J1071 Depo Testosterone 200mg 08:56:46 CDT CPT-04036 Abx/Therapy Injection 08:56:45 CDT CPT-J1071 Depo Testosterone 200mg 08:26:27 CDT CPT-50405 Abx/Therapy Injection 08:26:27 CDT CPT-J1071 Depo Testosterone 200mg 10:27:10 CDT CPT-99199 Abx/Therapy Injection 10:27:10 CDT CPT-J1071 Depo Testosterone 200mg 16:10:29 HEAD BOOKKEEPER CPT-12529 Abx/Therapy Injection 16:10:29 HEAD BOOKKEEPER CPT-J1071 Depo Testosterone 200mg 16:13:47 HEAD BOOKKEEPER CPT-73416 Abx/Therapy Injection 16:13:46 HEAD BOOKKEEPER CPT-J1071 Depo Testosterone 200mg 15:33:58 HEAD BOOKKEEPER CPT-71282 Abx/Therapy Injection 15:33:58 HEAD BOOKKEEPER CPT-J1071 Depo Testosterone 200mg 09:38:36 [facility] CPT-67081 Abx/Therapy Injection 09:38:36 [facility] CPT-J1071 Depo Testosterone 200mg 10:22:56 HEAD BOOKKEEPER CPT-95765 Abx/Therapy Injection 10:22:56 HEAD BOOKKEEPER CPT-J1071 Depo Testosterone 200mg 15:40:23 CDT CPT-44500 Abx/Therapy Injection 15:40:23 CDT CPT-J1071 Depo Testosterone 200mg 14:20:43 CDT CPT-13360 Abx/Therapy Injection 14:20:43 CDT CPT-J1071 Depo Testosterone 200mg 14:17:22 CDT CPT-69854 Abx/Therapy Injection 14:17:22 CDT CPT-J1071 Depo Testosterone 200mg 09:03:53 CDT CPT-45652 Abx/Therapy Injection 09:03:53 CDT CPT-G0439 [facility] Annual Wellness Exam 16:47:44 CDT CPT-J1071 Depo Testosterone 200mg 09:06:28 CDT CPT-77628 Abx/Therapy Injection 09:06:28 CDT CPT-J1071 Depo Testosterone 200mg 08:30:01 CDT CPT-13355 Abx/Therapy Injection 08:30:01 CDT CPT-J1071 Depo Testosterone 200mg 08:24:00 CDT CPT-45452 Abx/Therapy Injection 08:24:00 CDT CPT-00135 Venipuncture Draw Fee 14:39:06 CDT CPT-45773 Ribs unilateral 2V - XRAY USE ONLY 12:10:11 CDT CPT-88244 First Vx - Ix admin for Medicare patients 16:32:53 CDT CPT-02735 Boostrix Intramuscular Suspension 5-2.5-18.5 16:32:53 CDT CPT-19561 TB Skin Test 11:42:28 CDT CPT-94632 Tdap 7yrs or > 11:42:28 CDT CPT-J0696 Rocephin 1000 mg (Ceftriaxone) 17:43:43 HEAD BOOKKEEPER CPT-J1040 Depo Medrol 80 mg (Methyl Prednisolone Acetate) 17:43: 43 HEAD BOOKKEEPER CPT-J1100 Decadron 8mg (Dexamethasone) 17:43:42 HEAD BOOKKEEPER CPT-65461 Abx/Therapy Injection 17:43:42 HEAD BOOKKEEPER CPT-40529 Abx/Therapy Injection 17:43:42 HEAD BOOKKEEPER CPT-J1040 Depo Medrol 80 mg (Methyl Prednisolone Acetate) 09:43: 34 HEAD BOOKKEEPER CPT-J1100 Decadron 8mg (Dexamethasone) 09:43:34 HEAD BOOKKEEPER CPT-J0696 Rocephin 1gm Inj Solr 09:43:34 HEAD BOOKKEEPER CPT-92560 Wound Culture - LAB USE ONLY 14:00:21 CDT CPT-I/D I/D Abscess 09:16:37 CDT CPT-14869 Venipuncture Draw Fee 15:20:23 CDT CPT-40053 Microalbumin - LAB USE ONLY 16:02:19 CDT CPT-45716 CBC - LAB USE ONLY 16:02:19 CDT CPT-32900 Venipuncture Draw Fee 16:02:19 CDT CPT-G0438 Initial Annual Wellness Exam 08:10:28 CDT CPT-96809 Venipuncture Draw Fee 13:07:17 CDT CPT-G0008 Administration of Influenza Virus Vaccine 16:09:59 CDT CPT-12518 Fluzone Quadrivalent Intramuscular Suspension 0.5 ML 16: 09:59 CDT CPT-55162 Spec Collection and Handling Fee 15:05:50 CDT
--- OUTSIDE RECORDS SUMMARY | 2018-04-18 12:52 | XMS REPORT | Clinical Summary ---
Author Author Admin, [facility] Organization [email or web address] Address Unknown Phone Unavailable Allergies, Adverse Reactions, [...] muscle spasm/pain for 10 days CYCLOBENZAPRINE HCL 17832527120 Active Erin Garsia APRN Active PREDNISONE 20 MG TAB take 3 tabs daily for 3 days, 2 tabs daily for 3 days, 1 tab daily for 3 days, 1/2 tab daily for 4 days PREDNISONE 43521332394 No Longer Active Erin Garsia APRN Active CLONIDINE HCL 0.2 MG ORAL TABS 1 TAB BY MOUTH EVERY 8 HOURS 12/29 CLONIDINE HCL 78342818612 No Longer Active Erin Garsia APRN Active MECLIZINE HCL 25 MG TAB one 4 times a day as needed for dizziness MECLIZINE HCL 84241844253 No Longer Active Erin Garsia APRN Active SPIRONOLACTONE 25 MG TAB 4 tablets by mouth daily SPIRONOLACTONE 41166451360 No Longer Active Erin Garsia APRN Active LEVAQUIN 500 MG TAB 1 tablet by mouth daily for 7 days LEVOFLOXACIN 56928023370 No Longer Active Erin Garsia APRN Active BACTRIM DS 800-160 MG TAB 1 tab by mouth twice daily TRIMETHOPRIM-SULFAMETHOXAZOLE 62683430616 No Longer Active Robbie Busyb MD Active HYDRALAZINE HCL 50 MG ORAL TABS TWO BY MOUTH THREE TIMES DAILY HYDRALAZINE HCL 78946786342 No Longer Active Jillina Frazell SYSTEM SPECIALIST Active HYDROCODONE-ACETAMINOPHEN 5-325 MG TABS 1 tab by mouth BID prn back pain 2013 HYDROCODONE-ACETAMINOPHEN 49912507547 No Longer Active Jillina Frazell SYSTEM SPECIALIST Active HYDROCHLOROTHIAZIDE TABS Take one by mouth daily HYDROCHLOROTHIAZIDE TABS 63173083949 No Longer Active Jillina Frazell SYSTEM SPECIALIST Active LAMISIL 125 MG ORAL PACK 1 TAB PO DAILY TERBINAFINE HCL 23369695802 No Longer Active Jillina Frazell SYSTEM SPECIALIST Active TRILEPTAL 150 MG ORAL TABS 1 TAB PO Q HS OXCARBAZEPINE 05116112091 No Longer Active Jillina Frazell SYSTEM SPECIALIST Active BETADINE 10 % EXT SOLN wash with solution to treat follicultis POVIDONE-IODINE 89325878058 No Longer Active Jillina Frazell SYSTEM SPECIALIST Active NYSTATIN 905276 UNIT/ML M/T SUSP 5mL po QID x 10 days NYSTATIN 94984007174 No Longer Active Erin Garsia APRN Active PREDNISONE 20 MG TAB 1 tablet twice daily for 2 days, then 1 tablet once daily for 2 days PREDNISONE 08053013420 No Longer Active Robbie Busby MD Active CEFDINIR 300 MG ORAL CAPS Take 1 cap po bid x 10 days CEFDINIR 25445355704 No Longer Active Robbie Busby MD Active AMLODIPINE BESYLATE 10 MG TABS 1 tablet by mouth daily AMLODIPINE BESYLATE 19033654995 Active oRbbie Busby MD Active CARVEDILOL 25 MG TABS 1 & 1/2 TAB po BID CARVEDILOL 12654475700 Active Robbie Busby MD Active VITAMIN D3 85179 UNIT CAPS 2 CAPS PO WEEKLY CHOLECALCIFEROL 80201193421 Active Erin Garsia APRN Active NEXIUM 40 MG CPDR 1 cap by mouth daily ESOMEPRAZOLE MAGNESIUM 55951537261 Active Robbie Busby MD Active PROTONIX 40 MG SOLR 1 po qday for acid reflux PANTOPRAZOLE SODIUM 76627439277 No Longer Active Gali Negro Active KEFLEX 500 MG CAP 1 po TID x 10 days CEPHALEXIN 39964309457 No Longer Active Robbie Busby MD Active FIORICET 50-300-40 MG ORAL CAPS take 1 tab po qday prn migraines. [id number] 99682237951 Active Robbie Busby MD Active TOPIRAMATE 50 MG ORAL TABS take 1 tab po BID for migraines. TOPIRAMATE 44638815616 Active Robbie Busby MD Active TEMAZEPAM 15 MG ORAL CAPS 1 TAB PO Q HS TEMAZEPAM 36431556460 Active Robbie Busby MD Active ALPRAZOLAM 2 MG ORAL TABS 1 TAB PO BID ALPRAZOLAM 93574690050 Active Robbie Busby MD Active FENOFIBRATE 145 MG TABS Take one by mouth daily FENOFIBRATE 61591423046 No Longer Active Robbie Busby MD Active SPIRONOLACTONE 50 MG TABS 1 tablet by mouth twice a day SPIRONOLACTONE 75782318979 No Longer Active Robbie Busby MD Active HYDRALAZINE HCL 25 MG TABS 1 tablet by mouth tid for hypertension HYDRALAZINE HCL 80870646209 No Longer Active Robbie Busby MD Active VIIBRYD 40 MG TABS take 1 tab po qday for depression. VILAZODONE HCL 56169827599 No Longer Active Robbie Busby MD Active TERBINAFINE HCL 250 MG TABS 1 tab po qday for foot infection 2014 TERBINAFINE HCL 91135522301 No Longer Active Robbie Busby MD Active GABAPENTIN 300 MG CAPS 1 po q hs for nerve pain GABAPENTIN 58543518003 Active Robbie Busby MD Active FLONASE 50 MCG/ACT SUSP 1 spray each nostril twice daily for allergies and runny nose FLUTICASONE PROPIONATE 22424287496 Active Robbie Busby MD Active CHERATUSSIN AC 100-10 MG/5ML ORAL SOLN 7.5 mL PO q 4-6 hrs PRN cough GUAIFENESIN-CODEINE 94876646042 No Longer Active Robbie Busby MD Active AZITHROMYCIN 250 MG ORAL TABS 2 tablets PO today---then, 1 tablet PO daily x 4 more days (and 1 optional refill) AZITHROMYCIN 94642636590 No Longer Active Robbie Busby MD Active NORVASC 10 MG TAB 1 tablet by mouth daily AMLODIPINE BESYLATE 96464345404 No Longer Active Alex ALVAREZ Active IMDUR 60 MG TAB CR take 1 tab po qday for blood pressure ISOSORBIDE MONONITRATE Active Robbie Busby MD Active ISOSORBIDE DINITRATE 30 MG TABS Take one by mouth daily ISOSORBIDE DINITRATE 39053785432 No Longer Active Robbie Busby MD Active VIIBRYD 40 MG TABS 1 TA B PO DAILY VILAZODONE HCL 04240296299 Active Robbie Busby MD Active LORATADINE 10 MG TABS 1 tablet by mouth daily for congestion and allergies. LORATADINE 71643271661 Active Robbie Busby MD Active ZITHROMAX 250 MG TAB 2 po today, then 1 po q days 2-5 AZITHROMYCIN 28982142043 No Longer Active Robbie Busby MD Active [id number] 0.3 MG/24HR PTWK apply 2 patches q week for HTN CLONIDINE HCL 35124060831 Active Robbie Busby MD Active NITROSTAT 0.4 MG SUBL PRN NITROGLYCERIN 61876715100 Active Robbie Busby MD Active DOXAZOSIN MESYLATE 4 MG TABS Take one by mouth daily DOXAZOSIN MESYLATE 03834844869 Active Erin Garsia SYSTEM SPECIALIST Active TOPROL XL 200 MG [id number] Take one by mouth daily METOPROLOL SUCCINATE 04415678586 Active Robbie Busby MD Active VENLAFAXINE HCL ER 150 MG [id number]-WHB Take one by mouth daily VENLAFAXINE HCL 59582401678 Active Robbie Busby MD Active LIPITOR 40 MG TABS Take one by mouth daily ATORVASTATIN CALCIUM 48701445551 Active Robbie Busby MD Active ISOSORBIDE DINITRATE 30 MG TABS Take one by mouth daily ISOSORBIDE DINITRATE 30 MG TABS 296582 ISOSORBIDE DINITRATE Inactive NORVASC 10 MG TAB 1 tablet by mouth daily NORVASC 10 MG TAB 275615 AMLODIPINE BESYLATE Inactive AZITHROMYCIN 250 MG ORAL TABS 2 tablets PO today---then, 1 tablet PO daily x 4 more days (and 1 optional refill) AZITHROMYCIN 250 MG ORAL TABS 4061656 AZITHROMYCIN Inactive CHERATUSSIN AC 100-10 MG/5ML ORAL SOLN 7.5 mL PO q 4-6 hrs PRN cough CHERATUSSIN AC 100-10 MG/5ML ORAL SOLN 773595 GUAIFENESIN- CODEINE Inactive VIIBRYD 40 MG TABS take 1 tab po qday for depression. VIIBRYD 40 MG TABS VILAZODONE HCL Inactive HYDRALAZINE HCL 25 MG TABS 1 tablet by mouth tid for hypertension HYDRALAZINE HCL 25 MG TABS 138906 HYDRALAZINE HCL Inactive SPIRONOLACTONE 50 MG TABS 1 tablet by mouth twice a day SPIRONOLACTONE 50 MG TABS 600295 SPIRONOLACTONE Inactive FENOFIBRATE 145 MG TABS Take one by mouth daily FENOFIBRATE 145 MG TABS 076126 FENOFIBRATE Inactive PROTONIX 40 MG SOLR 1 po qday for acid reflux PROTONIX 40 MG SOLR 463443 PANTOPRAZOLE SODIUM Inactive CEFDINIR 300 MG ORAL CAPS Take 1 cap po bid x 10 days CEFDINIR 300 MG ORAL CAPS 439072 CEFDINIR Inactive PREDNISONE 20 MG TAB 1 tablet twice daily for 2 days, then 1 tablet once daily for 2 days PREDNISONE 20 MG TAB 573745 PREDNISONE Inactive NYSTATIN 481056 UNIT/ML M/T SUSP 5mL po QID x 10 days NYSTATIN 473807 UNIT/ML M/T SUSP 753031 NYSTATIN Inactive BETADINE 10 % EXT SOLN wash with solution to treat follicultis BETADINE 10 % EXT SOLN 6176768 POVIDONE-IODINE Inactive TRILEPTAL 150 MG ORAL TABS 1 TAB PO Q HS TRILEPTAL 150 MG ORAL TABS 994100 OXCARBAZEPINE Inactive LAMISIL 125 MG ORAL PACK 1 TAB PO DAILY LAMISIL 125 MG ORAL PACK TERBINAFINE HCL Inactive HYDROCHLOROTHIAZIDE TABS Take one by mouth daily HYDROCHLOROTHIAZIDE TABS HYDROCHLOROTHIAZIDE TABS Inactive HYDROCODONE-ACETAMINOPHEN 5-325 MG TABS 1 tab by mouth BID prn back pain 2013 HYDROCODONE-ACETAMINOPHEN 5-325 MG TABS 427501 HYDROCODONE -ACETAMINOPHEN Inactive HYDRALAZINE HCL 50 MG ORAL TABS TWO BY MOUTH THREE TIMES DAILY HYDRALAZINE HCL 50 MG ORAL TABS 198205 HYDRALAZINE HCL Inactive LEVAQUIN 500 MG TAB 1 tablet by mouth daily for 7 days LEVAQUIN 500 MG TAB 298748 LEVOFLOXACIN Inactive SPIRONOLACTONE 25 MG TAB 4 tablets by mouth daily SPIRONOLACTONE 25 MG TAB 301721 SPIRONOLACTONE Inactive MECLIZINE HCL 25 MG TAB one 4 times a day as needed for dizziness MECLIZINE HCL 25 MG TAB 323140 MECLIZINE HCL Inactive CLONIDINE HCL 0.2 MG ORAL TABS 1 TAB BY MOUTH EVERY 8 HOURS 12/29 CLONIDINE HCL 0.2 MG ORAL TABS 533814 CLONIDINE HCL Inactive ZITHROMAX 250 MG TAB 2 po today, then 1 po q days 2-5 ZITHROMAX 250 MG TAB 1683094 AZITHROMYCIN Inactive TERBINAFINE HCL 250 MG TABS 1 tab po qday for foot infection 2014 TERBINAFINE HCL 250 MG TABS 778715 TERBINAFINE HCL Inactive KEFLEX 500 MG CAP 1 po TID x 10 days KEFLEX 500 MG CAP 136758 CEPHALEXIN Inactive BACTRIM DS 800-160 MG TAB 1 tab by mouth twice daily BACTRIM DS 800-160 MG TAB 438812 TRIMETHOPRIM-SULFAMETHOXAZOLE Inactive PREDNISONE 20 MG TAB take 3 tabs daily for 3 days, 2 tabs daily for 3 days, 1 tab daily for 3 days, 1/2 tab daily for 4 days PREDNISONE 20 MG TAB 150903 PREDNISONE Inactive Advance Directives Directive Description Start [...] % 11.0-15.0 platelet count 185 THOUSAND/UL 10*3/mm3 864-791 0501/04/14 mean platelet volume 10.9 fL 7.5-12.5 Lab Report: HEPATITIS B SAB/Immune Status, RUBELLA IGG AB(Immune Status) - Serology rubella antibody, serum, IgG 2.06 Lab Report: LIPID PANEL, TSH/899, T4, FREE/866 - Chemistry cholesterol, serum 220 mg/dL 452-912 9566/04/14 HDL cholesterol, serum 30 mg/dL > OR=40 triglyceride, serum, fasting 466 mg/dL <150 LDL cholesterol, serum SEE NOTE mg/dL (calc) mg/dL <130 cholesterol/HDL ratio, serum 7.3 (calc) < OR=5.0 Lab Report: MICROALB/CREAT W/RATIO - Chemistry albumin/creatinine ratio, urine < 30 mg/g mg/g{creat} 0-29 Lab Report: MICROALB/CREAT W/RATIO - Lab microalbumin, urine 80 0-19 Lab Report: VITAMIN D, 25-HYDROXY/51194 - Chemistry vitamin D 25-hydroxy, serum 23 ng/mL 30-100 Office Visit: Confusion, dizziness after fall - Basic LDL target level 130 mg/dL Office Visit: Confusion, dizziness after fall - Chemistry HDL cholesterol, serum, target level 40 mg/dL triglyceride, target level 150 mg/dL cholesterol, target level 200 mg/dL Encounters Code Encounter Date Provider Facility CPT-73251 Level 4 Est. Patient 11:56:16 CDT Erin Garsia [facility] CPT-22684 Level 3 Est. Patient 17:48:02 CDT Robbie Busby MD [facility] CPT-83989 Level 4 Est. Patient 12:00:49 IND[employer]RIAL SALES MANAGER Rober Rodríguez [facility] CPT-25003 Level 3 Est. Patient 09:16:37 CDT Robbie Busby MD [facility] CPT-73137 Level 3 Est. Patient 19:38:43 CDT Robbie Busby MD [facility] CPT-55919 Level 3 Est. Patient 11:53:38 CDT Robbie Busby MD [facility] CPT-07213 Level 4 Est. Patient 12:52:22 CDT Rober Rodríguez [facility] CPT-63366 Level 4 Est. Patient 22:55:17 CDT Robbie Busby MD [facility] CPT-78547 Level 3 Est. Patient 12:38:24 CDT Desmond Diaz DO [facility] CPT-30905 Level 4 Est. Patient 11:25:03 INDUSTRIAL SALES MANAGER Robbie Busby MD [facility] CPT-46027 Level 4 Est. Patient 14:50:10 CDT Robbie Busby MD [facility] CPT-13713 Level 4 Est. Patient 23:30:43 CDT Robbie Busby MD [facility] CPT-46175 Level 4 Est. Patient 10:30:43 CDT Robbie Busby MD [facility] CPT-99616 Level 3 Est. Patient 17:08:12 CDT [facility] CPT-36327 Level 4 Est. Patient 17:51:38 CDT Robbie Busby MD [facility] CPT-12624 Level 4 Est. Patient 14:00:21 CDT Robbie Busby MD [facility] CPT-44388 Level 4 Est. Patient 12:46:48 CDT Robbie Busby MD [facility] CPT-24066 Level 4 Est. Patient 13:34:33 CDT Robbie Busby MD [facility] CPT-53776 Level 4 Est. Patient 16:58:28 CDT Robbie Busby MD [facility] CPT-71958 Level 3 Est. Patient 19:36:53 CDT [facility] CPT-15115 Level 3 Est. Patient 12:58:15 CDT Robbie Busby MD [facility] Procedures Code Procedure Name Date Entry Date Standard Description CPT-J0696 Rocephin 1000 mg (Ceftriaxone) 17:43:43 INDUSTRIAL SALES MANAGER CPT-J1040 Depo Medrol 80 mg (Methyl Prednisolone Acetate) 17:43: 43 IND[employer]RIAL SALES MANAGER CPT-J1100 Decadron 8mg (Dexamethasone) 17:43:42 INDUSTRIAL SALES MANAGER CPT-21102 Abx/Therapy Injection 17:43:42 INDUSTRIAL SALES MANAGER CPT-08730 Abx/Therapy Injection 17:43:42 INDUSTRIAL SALES MANAGER CPT-J1040 Depo Medrol 80 mg (Methyl Prednisolone Acetate) 09:43: 34 INDUSTRIAL SALES MANAGER CPT-J1100 Decadron 8mg (Dexamethasone) 09:43:34 INDUSTRIAL SALES MANAGER CPT-J0696 Rocephin 1gm Inj Solr 09:43:34 INDUSTRIAL SALES MANAGER CPT-83725 Wound Culture - LAB USE ONLY 14:00:21 CDT CPT-I/D I/D Abscess 09:16:37 CDT CPT-97033 Venipuncture Draw Fee 15:20:23 CDT CPT-97644 Microalbumin - LAB USE ONLY 16:02:19 CDT CPT-60612 CBC - LAB USE ONLY 16:02:19 CDT CPT-23457 Venipuncture Draw Fee 16:02:19 CDT CPT-G0438 Initial Annual Wellness Exam 08:10:28 CDT CPT-33572 Venipuncture Draw Fee 13:07:17 CDT CPT-G0008 Administration of Influenza Virus Vaccine 16:09:59 CDT CPT-45604 Fluzone Quadrivalent Intramuscular Suspension 0.5 ML 16: 09:59 CDT CPT-96682 Spec Collection and Handling Fee 15:05:50 CDT
--- OUTSIDE RECORDS SUMMARY | 2018-04-18 12:53 | XMS REPORT | Clinical Summary ---
Author Author Admin, [facility] Organization [facility] Address Unknown Phone Unavailable Allergies, Adverse [...] Generic Name ND Status Provider Patient Instruction PREDNISONE 20 MG TAB 1 tablet twice daily for 2 days, then 1 tablet once daily for 2 days PREDNISONE 13176652729 No Longer Active Robbie Busby MD Active CEFDINIR 300 MG ORAL CAPS Take 1 cap po bid x 10 days CEFDINIR 20659380766 No Longer Active Robbie Busby MD Active NYSTATIN 331940 UNIT/ML M/T SUSP 5mL po QID x 10 days NYSTATIN 80758054251 Active Gali Negro Active AMLODIPINE BESYLATE 10 MG TABS 1 tablet by mouth daily AMLODIPINE BESYLATE 82799180019 Active Robbie Busby MD Active CARVEDILOL 25 MG TABS 1 & 1/2 TAB po BID CARVEDILOL 85364247243 Active Robbie Busby MD Active VITAMIN D3 26938 UNIT CAPS 2 CAPS PO WEEKLY CHOLECALCIFEROL 02944396227 Active Vanessa August Active NEXIUM 40 MG CPDR 1 cap by mouth daily ESOMEPRAZOLE MAGNESIUM 82541049722 Active Gali Negro Active PROTONIX 40 MG SOLR 1 po qday for acid reflux PANTOPRAZOLE SODIUM 65433281258 No Longer Active Galileonila Negro Active BETADINE 10 % EXT SOLN wash with solution to treat follicultis POVIDONE-IODINE 26858317055 Active Robbie Busby MD Active KEFLEX 500 MG CAP 1 po TID x 10 days CEPHALEXIN 49982774255 No Longer Active Robbie Busby MD Active FIORICET 50-300-40 MG ORAL CAPS take 1 tab po qday prn migraines. [id number] 19609202659 Active Robbie Busby MD Active TOPIRAMATE 50 MG ORAL TABS take 1 tab po BID for migraines. TOPIRAMATE 71082098566 Active Robbie Busby MD Active HYDRALAZINE HCL 50 MG ORAL TABS TWO BY MOUTH THREE TIMES DAILY HYDRALAZINE HCL 94520920116 Active Robbie Busby MD Active MECLIZINE HCL 25 MG TAB one 4 times a day as needed for dizziness MECLIZINE HCL 31568046670 Active Robbie Busby MD Active TRILEPTAL 150 MG ORAL TABS 1 TAB PO Q HS OXCARBAZEPINE 38082029846 Active Robbie Busby MD Active TEMAZEPAM 15 MG ORAL CAPS 1 TAB PO Q HS TEMAZEPAM 00675563668 Active Robbie Busby MD Active ALPRAZOLAM 2 MG ORAL TABS 1 TAB PO BID ALPRAZOLAM 73353858421 Active Robbie Busby MD Active FENOFIBRATE 145 MG TABS Take one by mouth daily FENOFIBRATE 79002355211 No Longer Active Robbie Busby MD Active LAMISIL 125 MG ORAL PACK 1 TAB PO DAILY TERBINAFINE HCL 35711130021 Active Robbie Busby MD Active SPIRONOLACTONE 50 MG TABS 1 tablet by mouth twice a day SPIRONOLACTONE 33099238908 No Longer Active Robbie Busby MD Active HYDRALAZINE HCL 25 MG TABS 1 tablet by mouth tid for hypertension HYDRALAZINE HCL 17034229296 No Longer Active Robbie Busby MD Active VIIBRYD 40 MG TABS take 1 tab po qday for depression. VILAZODONE HCL 59886649320 No Longer Active Robbie Busby MD Active TERBINAFINE HCL 250 MG TABS 1 tab po qday for foot infection 2014 TERBINAFINE HCL 08931296916 No Longer Active Robbie Busby MD Active GABAPENTIN 300 MG CAPS 1 po q hs for nerve pain GABAPENTIN 48841412882 Active Robbie Busby MD Active FLONASE 50 MCG/ACT SUSP 1 spray each nostril twice daily for allergies and runny nose FLUTICASONE PROPIONATE 60066852541 Active Robbie Busby MD Active CHERATUSSIN AC 100-10 MG/5ML ORAL SOLN 7.5 mL PO q 4-6 hrs PRN cough GUAIFENESIN-CODEINE 75910275663 No Longer Active Robbie Busby MD Active AZITHROMYCIN 250 MG ORAL TABS 2 tablets PO today---then, 1 tablet PO daily x 4 more days (and 1 optional refill) AZITHROMYCIN 21251548270 No Longer Active Robbie Busby MD Active CLONIDINE HCL 0.2 MG ORAL TABS 1 TAB BY MOUTH EVERY 8 HOURS CLONIDINE HCL 27712714901 Active Robbie Busby MD Active HYDROCHLOROTHIAZIDE TABS Take one by mouth daily HYDROCHLOROTHIAZIDE TABS 56786396830 Active Alex ALVAREZ Active NORVASC 10 MG TAB 1 tablet by mouth daily AMLODIPINE BESYLATE 35300641168 No Longer Active Alex ALVAREZ Active IMDUR 60 MG TAB CR take 1 tab po qday for blood pressure ISOSORBIDE MONONITRATE Active Robbie Busby MD Active ISOSORBIDE DINITRATE 30 MG TABS Take one by mouth daily ISOSORBIDE DINITRATE 91181328999 No Longer Active Robbie Busby MD Active VIIBRYD 40 MG TABS 1 TA B PO DAILY VILAZODONE HCL 37820475772 Active Erin Garsia APRN Active LORATADINE 10 MG TABS 1 tablet by mouth daily for congestion and allergies. LORATADINE 60665927602 Active Robbie Busby MD Active ZITHROMAX 250 MG TAB 2 po today, then 1 po q days 2-5 AZITHROMYCIN 61226168365 No Longer Active Robbie Busby MD Active HYDROCODONE-ACETAMINOPHEN 5-325 MG TABS 1 tab by mouth BID prn back pain 2013 HYDROCODONE-ACETAMINOPHEN 73669800304 Active Robbie Busby MD Active [id number] 0.3 MG/24HR PTWK apply 2 patches q week for HTN CLONIDINE HCL 03400509604 Active Robbie Busby MD Active NITROSTAT 0.4 MG SUBL PRN NITROGLYCERIN 02626830091 Active Robbie Busby MD Active DOXAZOSIN MESYLATE 4 MG TABS Take one by mouth daily DOXAZOSIN MESYLATE 18184310421 Active Robbie Busby MD Active TOPROL XL 200 MG [id number] Take one by mouth daily METOPROLOL SUCCINATE 69085791964 Active Robbie Busby MD Active VENLAFAXINE HCL ER 150 MG [id number] Take one by mouth daily VENLAFAXINE HCL 50261884613 Active Robbie Busby MD Active LIPITOR 40 MG TABS Take one by mouth daily ATORVASTATIN CALCIUM 19990080978 Active Robbie Busby MD Active ISOSORBIDE DINITRATE 30 MG TABS Take one by mouth daily ISOSORBIDE DINITRATE 30 MG TABS 634529 ISOSORBIDE DINITRATE Inactive NORVASC 10 MG TAB 1 tablet by mouth daily NORVASC 10 MG TAB 442008 AMLODIPINE BESYLATE Inactive AZITHROMYCIN 250 MG ORAL TABS 2 tablets PO today---then, 1 tablet PO daily x 4 more days (and 1 optional refill) AZITHROMYCIN 250 MG ORAL TABS 5054302 AZITHROMYCIN Inactive CHERATUSSIN AC 100-10 MG/5ML ORAL SOLN 7.5 mL PO q 4-6 hrs PRN cough CHERATUSSIN AC 100-10 MG/5ML ORAL SOLN 042659 GUAIFENESIN- CODEINE Inactive VIIBRYD 40 MG TABS take 1 tab po qday for depression. VIIBRYD 40 MG TABS VILAZODONE HCL Inactive HYDRALAZINE HCL 25 MG TABS 1 tablet by mouth tid for hypertension HYDRALAZINE HCL 25 MG TABS 494544 HYDRALAZINE HCL Inactive SPIRONOLACTONE 50 MG TABS 1 tablet by mouth twice a day SPIRONOLACTONE 50 MG TABS 416824 SPIRONOLACTONE Inactive FENOFIBRATE 145 MG TABS Take one by mouth daily FENOFIBRATE 145 MG TABS 049779 FENOFIBRATE Inactive PROTONIX 40 MG SOLR 1 po qday for acid reflux PROTONIX 40 MG SOLR 019719 PANTOPRAZOLE SODIUM Inactive CEFDINIR 300 MG ORAL CAPS Take 1 cap po bid x 10 days CEFDINIR 300 MG ORAL CAPS 124181 CEFDINIR Inactive PREDNISONE 20 MG TAB 1 tablet twice daily for 2 days, then 1 tablet once daily for 2 days PREDNISONE 20 MG TAB 302851 PREDNISONE Inactive ZITHROMAX 250 MG TAB 2 po today, then 1 po q days 2-5 ZITHROMAX 250 MG TAB 2925824 AZITHROMYCIN Inactive TERBINAFINE HCL 250 MG TABS 1 tab po qday for foot infection 2014 TERBINAFINE HCL 250 MG TABS 446117 TERBINAFINE HCL Inactive KEFLEX 500 MG CAP 1 po TID x 10 days KEFLEX 500 MG CAP 575449 CEPHALEXIN Inactive Vital Signs Date Name Value [...] Acid - Chemistry sodium, serum 139 mmol/L 753-203 4468/04/22 carbon dioxide, venous blood 29.4 mmol/L 21.0-32.0 [...] PANEL - Chemistry cholesterol, serum 211 mg/dL 144-577 0273/08/31 triglyceride, serum, fasting 429 mg/dL 30-200 HDL [...] to Follow Negative Lab Report: VITAMIN D, 25-HYDROXY/97287 - Chemistry vitamin D 25-hydroxy, serum 23 ng/mL 30-100 Encounters Code Encounter Date Provider Facility CPT-07546 Level 4 Est. Patient 22:55:17 CDT Robbie Busby MD [facility] CPT-01126 Level 3 Est. Patient 12:38:24 CDT Desmond Diaz DO [facility] CPT-72897 Level 4 Est. Patient 11:25:03 LORRY WEIGHER Robbie Busby MD [facility] CPT-90138 Level 4 Est. Patient 14:50:10 CDT Robbie Busby MD [facility] CPT-26740 Level 4 Est. Patient 23:30:43 CDT Robbie Busby MD [facility] CPT-98662 Level 4 Est. Patient 10:30:43 CDT Robbie Busby MD [facility] CPT-17155 Level 3 Est. Patient 17:08:12 CDT Alex ALVAREZ [facility] CPT-36411 Level 4 Est. Patient 17:51:38 CDT Robbie Busby MD [facility] CPT-69485 Level 4 Est. Patient 14:00:21 CDT Robbie Busby MD [facility] CPT-36877 Level 4 Est. Patient 12:46:48 CDT Robbie Busby MD [facility] CPT-71948 Level 4 Est. Patient 13:34:33 CDT Robbie Busby MD [facility] CPT-08637 Level 4 Est. Patient 16:58:28 CDT Robbie Busby MD [facility] CPT-45328 Level 3 Est. Patient 19:36:53 CDT Alex ALVAREZ [facility] CPT-83047 Level 3 Est. Patient 12:58:15 CDT Robbie Busby MD [facility] Procedures Code Procedure Name Date Entry Date Standard Description CPT-09126 Venipuncture Draw Fee 13:07:17 CDT CPT-G0008 Administration of Influenza Virus Vaccine 16:09:59 CDT CPT-73297 Fluzone Quadrivalent Intramuscular Suspension 0.5 ML 16: 09:59 CDT CPT-45049 Spec Collection and Handling Fee 15:05:50 CDT
--- OUTSIDE RECORDS SUMMARY | 2018-04-18 12:53 | XMS REPORT | Clinical Summary ---
Author Author Admin, AKUA Organization [employer] [facility] Address Unknown Phone Unavailable Allergies, [...] Name NDC Status Provider Patient Instruction NYSTATIN 426125 UNIT/ML M/T SUSP 5mL po QID x 10 days NYSTATIN 13460448068 No Longer Active Erin Garsia APRN Active PREDNISONE 20 MG TAB 1 tablet twice daily for 2 days, then 1 tablet once daily for 2 days PREDNISONE 46790605017 No Longer Active Robbie Busby MD Active CEFDINIR 300 MG ORAL CAPS Take 1 cap po bid x 10 days CEFDINIR 95182577729 No Longer Active Robbie Busby MD Active AMLODIPINE BESYLATE 10 MG TABS 1 tablet by mouth daily AMLODIPINE BESYLATE 12288463734 Active Robbie Busby MD Active CARVEDILOL 25 MG TABS 1 & 1/2 TAB po BID CARVEDILOL 93693508794 Active Robbie Busby MD Active VITAMIN D3 36763 UNIT CAPS 2 CAPS PO WEEKLY CHOLECALCIFEROL 82258109411 Active Erin Garsia [employer]BER Active NEXIUM 40 MG CPDR 1 cap by mouth daily ESOMEPRAZOLE MAGNESIUM 68716421553 Active Gali Raida Active PROTONIX 40 MG SOLR 1 po qday for acid reflux PANTOPRAZOLE SODIUM 73919669437 No Longer Active Galileonila Negro Active BETADINE 10 % EXT SOLN wash with solution to treat follicultis POVIDONE-IODINE 86386467927 Active Robbie Busby MD Active KEFLEX 500 MG CAP 1 po TID x 10 days CEPHALEXIN 28986958753 No Longer Active Robbie Busby MD Active FIORICET 50-300-40 MG ORAL CAPS take 1 tab po qday prn migraines. [id number] 88345287597 Active Robbie Busby MD Active TOPIRAMATE 50 MG ORAL TABS take 1 tab po BID for migraines. TOPIRAMATE 32204071526 Active Robbie Busby MD Active HYDRALAZINE HCL 50 MG ORAL TABS TWO BY MOUTH THREE TIMES DAILY HYDRALAZINE HCL 58568779064 Active Robbie Busby MD Active MECLIZINE HCL 25 MG TAB one 4 times a day as needed for dizziness MECLIZINE HCL 61510626896 Active Robbie Busby MD Active TRILEPTAL 150 MG ORAL TABS 1 TAB PO Q HS OXCARBAZEPINE 42332467399 Active Robbie Busby MD Active TEMAZEPAM 15 MG ORAL CAPS 1 TAB PO Q HS TEMAZEPAM 92317739070 Active Robbie Busby MD Active ALPRAZOLAM 2 MG ORAL TABS 1 TAB PO BID ALPRAZOLAM 32605315960 Active Robbie Busby MD Active FENOFIBRATE 145 MG TABS Take one by mouth daily FENOFIBRATE 53592882397 No Longer Active Robbie Busby MD Active LAMISIL 125 MG ORAL PACK 1 TAB PO DAILY TERBINAFINE HCL 80318746339 Active Robbie Busby MD Active SPIRONOLACTONE 50 MG TABS 1 tablet by mouth twice a day SPIRONOLACTONE 14358337964 No Longer Active Robbie Busby MD Active HYDRALAZINE HCL 25 MG TABS 1 tablet by mouth tid for hypertension HYDRALAZINE HCL 90263161091 No Longer Active Robbie Busby MD Active VIIBRYD 40 MG TABS take 1 tab po qday for depression. VILAZODONE HCL 80622965323 No Longer Active Robbie Busby MD Active TERBINAFINE HCL 250 MG TABS 1 tab po qday for foot infection 2014 TERBINAFINE HCL 58258244053 No Longer Active Rbobie Busby MD Active GABAPENTIN 300 MG CAPS 1 po q hs for nerve pain GABAPENTIN 50994298748 Active Robbie Busby MD Active FLONASE 50 MCG/ACT SUSP 1 spray each nostril twice daily for allergies and runny nose FLUTICASONE PROPIONATE 02946976124 Active Robbie Busby MD Active CHERATUSSIN AC 100-10 MG/5ML ORAL SOLN 7.5 mL PO q 4-6 hrs PRN cough GUAIFENESIN-CODEINE 15618333618 No Longer Active Robbie Busby MD Active AZITHROMYCIN 250 MG ORAL TABS 2 tablets PO today---then, 1 tablet PO daily x 4 more days (and 1 optional refill) AZITHROMYCIN 36514252843 No Longer Active Robbie Busby MD Active CLONIDINE HCL 0.2 MG ORAL TABS 1 TAB BY MOUTH EVERY 8 HOURS CLONIDINE HCL 20643205330 Active Robbie Busby MD Active HYDROCHLOROTHIAZIDE TABS Take one by mouth daily HYDROCHLOROTHIAZIDE TABS 63840239700 Active Alex ALVAREZ Active NORVASC 10 MG TAB 1 tablet by mouth daily AMLODIPINE BESYLATE 59183751094 No Longer Active Alex ALVAREZ Active IMDUR 60 MG TAB CR take 1 tab po qday for blood pressure ISOSORBIDE MONONITRATE Active Robbie Busby MD Active ISOSORBIDE DINITRATE 30 MG TABS Take one by mouth daily ISOSORBIDE DINITRATE 65099085041 No Longer Active Robbie Busby MD Active VIIBRYD 40 MG TABS 1 TA B PO DAILY VILAZODONE HCL 62749208598 Active Robbie Busby MD Active LORATADINE 10 MG TABS 1 tablet by mouth daily for congestion and allergies. LORATADINE 46929304205 Active Robbie Busby MD Active ZITHROMAX 250 MG TAB 2 po today, then 1 po q days 2-5 AZITHROMYCIN 98374043241 No Longer Active Robbie Busby MD Active HYDROCODONE-ACETAMINOPHEN 5-325 MG TABS 1 tab by mouth BID prn back pain 2013 HYDROCODONE-ACETAMINOPHEN 59408448693 Active Robbie Busby MD Active [id number]-0 0.3 MG/24HR PTWK apply 2 patches q week for HTN CLONIDINE HCL 04071288385 Active Robbie Busby MD Active NITROSTAT 0.4 MG SUBL PRN NITROGLYCERIN 85014345555 Active Robbie Busby MD Active DOXAZOSIN MESYLATE 4 MG TABS Take one by mouth daily DOXAZOSIN MESYLATE 70112046954 Active Robbie Busby MD Active TOPROL XL 200 MG [id number]-MGL Take one by mouth daily METOPROLOL SUCCINATE 24965116937 Active Robbie Busby MD Active VENLAFAXINE HCL ER 150 MG [id number] Take one by mouth daily VENLAFAXINE HCL 19394816477 Active Robbie Busby MD Active LIPITOR 40 MG TABS Take one by mouth daily ATORVASTATIN CALCIUM 69518850753 Active Robbie Busby MD Active ISOSORBIDE DINITRATE 30 MG TABS Take one by mouth daily ISOSORBIDE DINITRATE 30 MG TABS 296006 ISOSORBIDE DINITRATE Inactive NORVASC 10 MG TAB 1 tablet by mouth daily NORVASC 10 MG TAB 909792 AMLODIPINE BESYLATE Inactive AZITHROMYCIN 250 MG ORAL TABS 2 tablets PO today---then, 1 tablet PO daily x 4 more days (and 1 optional refill) AZITHROMYCIN 250 MG ORAL TABS 1871466 AZITHROMYCIN Inactive CHERATUSSIN AC 100-10 MG/5ML ORAL SOLN 7.5 mL PO q 4-6 hrs PRN cough CHERATUSSIN AC 100-10 MG/5ML ORAL SOLN 171236 GUAIFENESIN- CODEINE Inactive VIIBRYD 40 MG TABS take 1 tab po qday for depression. VIIBRYD 40 MG TABS VILAZODONE HCL Inactive HYDRALAZINE HCL 25 MG TABS 1 tablet by mouth tid for hypertension HYDRALAZINE HCL 25 MG TABS 709580 HYDRALAZINE HCL Inactive SPIRONOLACTONE 50 MG TABS 1 tablet by mouth twice a day SPIRONOLACTONE 50 MG TABS 048927 SPIRONOLACTONE Inactive FENOFIBRATE 145 MG TABS Take one by mouth daily FENOFIBRATE 145 MG TABS 843125 FENOFIBRATE Inactive PROTONIX 40 MG SOLR 1 po qday for acid reflux PROTONIX 40 MG SOLR 966312 PANTOPRAZOLE SODIUM Inactive CEFDINIR 300 MG ORAL CAPS Take 1 cap po bid x 10 days CEFDINIR 300 MG ORAL CAPS 290507 CEFDINIR Inactive PREDNISONE 20 MG TAB 1 tablet twice daily for 2 days, then 1 tablet once daily for 2 days PREDNISONE 20 MG TAB 393411 PREDNISONE Inactive NYSTATIN 228687 UNIT/ML M/T SUSP 5mL po QID x 10 days NYSTATIN 711751 UNIT/ML M/T SUSP 633947 NYSTATIN Inactive ZITHROMAX 250 MG TAB 2 po today, then 1 po q days 2-5 ZITHROMAX 250 MG TAB 9647562 AZITHROMYCIN Inactive TERBINAFINE HCL 250 MG TABS 1 tab po qday for foot infection 2014 TERBINAFINE HCL 250 MG TABS 103524 TERBINAFINE HCL Inactive KEFLEX 500 MG CAP 1 po TID x 10 days KEFLEX 500 MG CAP 826193 CEPHALEXIN Inactive Advance Directives Directive Description Start [...] Acid - Chemistry sodium, serum 139 mmol/L 867-048 4637/04/22 carbon dioxide, venous blood 29.4 mmol/L 21.0-32.0 [...] to Follow Negative Lab Report: VITAMIN D, 25-HYDROXY/51570 - Chemistry vitamin D 25-hydroxy, serum 23 ng/mL 30-100 Encounters Code Encounter Date Provider Facility CPT-36300 Level 4 Est. Patient 22:55:17 CDT Robbie Busby MD [facility] CPT-32511 Level 3 Est. Patient 12:38:24 CDT Desmond Diaz DO [facility] CPT-84032 Level 4 Est. Patient 11:25:03 [employer]PRENTICE Robbie Busby MD [facility] CPT-01785 Level 4 Est. Patient 14:50:10 CDT Robbie Busby MD [facility] CPT-14731 Level 4 Est. Patient 23:30:43 CDT Robbie Busby MD [facility] CPT-53025 Level 4 Est. Patient 10:30:43 CDT Robbie Busby MD [facility] CPT-25635 Level 3 Est. Patient 17:08:12 CDT Alex ALVAREZ [facility] CPT-04306 Level 4 Est. Patient 17:51:38 CDT Robbie Busby MD [facility] CPT-88117 Level 4 Est. Patient 14:00:21 CDT Robbie Busby MD [facility] CPT-67380 Level 4 Est. Patient 12:46:48 CDT Robbie Busby MD [facility] CPT-12671 Level 4 Est. Patient 13:34:33 CDT Robbie Busby MD [facility] CPT-37492 Level 4 Est. Patient 16:58:28 CDT Robbie Busby MD [facility] CPT-22260 Level 3 Est. Patient 19:36:53 CDT Alex Shaw [facility] CPT-84510 Level 3 Est. Patient 12:58:15 CDT Robbie Busby MD [facility] Procedures Code Procedure Name Date Entry Date Standard Description CPT-19281 Venipuncture Draw Fee 15:20:23 CDT CPT-01165 Microalbumin - LAB USE ONLY 16:02:19 CDT CPT-64302 CBC - LAB USE ONLY 16:02:19 CDT CPT-64700 Venipuncture Draw Fee 16:02:19 CDT CPT-G0438 Initial Annual Wellness Exam 08:10:28 CDT CPT-74583 Venipuncture Draw Fee 13:07:17 CDT CPT-G0008 Administration of Influenza Virus Vaccine 16:09:59 CDT CPT-43781 Fluzone Quadrivalent Intramuscular Suspension 0.5 ML 16: 09:59 CDT CPT-82772 Spec Collection and Handling Fee 15:05:50 CDT
--- OUTSIDE RECORDS SUMMARY | 2018-04-18 12:54 | XMS REPORT | Clinical Summary ---
Author Author Admin, AKUA Organization [facility] Address Unknown Phone Unavailable Allergies, Adverse [...] po qday for acid reflux PANTOPRAZOLE SODIUM 68823983659 Active Robbie Busby MD Active NORVASC 10 MG TAB 1 tablet by mouth daily AMLODIPINE BESYLATE 66622093848 Active Robbie Busby MD Active IMDUR 60 MG TAB CR take 1 tab po qday for blood pressure ISOSORBIDE MONONITRATE Active Robbie Busby MD Active ISOSORBIDE DINITRATE 30 MG TABS Take one by mouth daily ISOSORBIDE DINITRATE 49560190345 No Longer Active Robbie Busby MD Active VIIBRYD 40 MG TABS take 1 tab po qday for depression. VILAZODONE HCL 53067063211 Active Robbie Busby MD Active VIIBRYD 40 MG TABS 1 TA B PO DAILY VILAZODONE HCL 71231975795 Active Robbie Busby MD Active LORATADINE 10 MG TABS 1 tablet by mouth daily for congestion and allergies. LORATADINE 96202644356 Active Robbie Busby MD Active ZITHROMAX 250 MG TAB 2 po today, then 1 po q days 2-5 AZITHROMYCIN 10751158509 No Longer Active Robbie Busby MD Active HYDROCODONE-ACETAMINOPHEN 5-325 MG TABS 1 tab by mouth BID prn back pain 2013 HYDROCODONE-ACETAMINOPHEN 56136200486 Active Robbie Busby MD Active HYDRALAZINE HCL 50 MG TABS take 1 tab po QID for high blood pressure HYDRALAZINE HCL 14137728799 Active Robbie Busby MD Active [id number]-TZF-8 0.3 MG/24HR PTWK apply 2 patches q week for HTN CLONIDINE HCL 34912071561 Active Robbie Busby MD Active FENOFIBRATE 145 MG TABS Take one by mouth daily FENOFIBRATE 75431168716 Active Robbie Busby MD Active NITROSTAT 0.4 MG SUBL PRN NITROGLYCERIN 01270617576 Active Robbie Busby MD Active DOXAZOSIN MESYLATE 4 MG TABS Take one by mouth daily DOXAZOSIN MESYLATE 66127404067 Active Robbie Busby MD Active HYDRALAZINE HCL 25 MG TABS 1 tablet by mouth tid for hypertension HYDRALAZINE HCL 05358157162 Active Robbie Busby MD Active TOPROL XL 200 MG [id number] Take one by mouth daily METOPROLOL SUCCINATE 41104261081 Active Robbie Busby MD Active SPIRONOLACTONE 50 MG TABS 1 tablet by mouth twice a day SPIRONOLACTONE 82648385993 Active Robbie Busby MD Active VENLAFAXINE HCL ER 150 MG [id number] Take one by mouth daily VENLAFAXINE HCL 54454762710 Active Robbie Busby MD Active LIPITOR 40 MG TABS Take one by mouth daily ATORVASTATIN CALCIUM 20765554353 Active Robbie Busby MD Active ISOSORBIDE DINITRATE 30 MG TABS Take one by mouth daily ISOSORBIDE DINITRATE 30 MG TABS 981882 ISOSORBIDE DINITRATE Inactive ZITHROMAX 250 MG TAB 2 po today, then 1 po q days 2-5 ZITHROMAX 250 MG TAB 7457421 AZITHROMYCIN Inactive Vital Signs Date Name Value [...] 3.9 mmol/L 3.5-5.2 sodium, serum 144 mmol/L 006-299 3537/07/07 creatinine, serum 1.70 mg/dL 0.60-1.30 urea nitrogen, blood 16 mg/dL 7-18 calcium, serum 9.8 mg/dL 8.5-10.1 Lab Report: Basic Metabolic Panel, UADIP W/MICRO, AUTO - Urinalysis appearance, urine Clear Clear specific gravity, urine >=1.030 1.000-1.030 urobilinogen, urine, semiquantitative (dipstick) 0.2 Normal leukocyte esterase, urine, by dipstick Negative Negative nitrite, urine, semiquantitative Negative Negative glucose, urine, semiquantitative Negative Negative ketones, urine, by test strip Trace Negative bilirubin, urine 1+ Negative urine color Yellow Colorless;Lightyellow;Straw;Yellow pH, urine, semiquantitative 5.5 5.0-8.5 Lab Report: CBC, Comp. Metabolic Panel - Chemistry urea nitrogen, blood 11 mg/dL 7-18 creatinine, serum 1.70 mg/dL 0.60-1.30 alanine aminotransferase (SGPT), serum 30 U/L 12-78 aspartate aminotransferase (SGOT), serum 23 U/L 15-37 calcium, serum 9.5 mg/dL 8.5-10.1 bilirubin, serum, total 0.80 mg/dL 0.00-1.00 sodium, serum 141 mmol/L 824-273 9257/12/05 potassium, serum 4.0 mmol/L 3.5-5.2 chloride, serum [...] mg/dL Encounters Code Encounter Date Provider Facility CPT-02964 Level 4 Est. Patient 17:51:38 CDT Robbie Busby MD [facility] CPT-49436 Level 4 Est. Patient 14:00:21 CDT Robbie Busby MD [facility] CPT-44163 Level 4 Est. Patient 12:46:48 CDT Robibe Busby MD [facility] CPT-63440 Level 4 Est. Patient 13:34:33 CDT Robbie Busby MD [facility] CPT-42255 Level 4 Est. Patient 16:58:28 CDT Robbie Busby MD [facility] CPT-09023 Level 3 Est. Patient 19:36:53 CDT Alex ALVAREZ [facility] CPT-90288 Level 3 Est. Patient 12:58:15 CDT Robbie Busby MD [facility] Procedures Code Procedure Name Date Entry Date Standard Description CPT-G0008 Administration of Influenza Virus Vaccine 16:09:59 CDT CPT-16219 Fluzone Quadrivalent Intramuscular Suspension 0.5 ML 16: 09:59 CDT CPT-44449 Spec Collection and Handling Fee 15:05:50 CDT
--- OUTSIDE RECORDS SUMMARY | 2018-04-18 12:55 | XMS REPORT | Clinical Summary ---
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 OXYCODONE HCL 63640455422 Active Robbie Busby MD Active NITROSTAT 0.4 MG SUBL PRN NITROGLYCERIN 21672548484 No Longer Active Robbie Busby MD Active LORATADINE 10 MG TABS 1 tablet by mouth daily for congestion and allergies. LORATADINE 18553967572 No Longer Active Robbie Busby MD Active FLONASE 50 MCG/ACT SUSP 1 spray each nostril twice daily for allergies and runny nose FLUTICASONE PROPIONATE 59997996056 No Longer Active Robbie Busby MD Active FIORICET 50-300-40 MG ORAL CAPS take 1 tab po qday prn migraines. [id number] 66660810982 No Longer Active Robbie Busby MD Active VITAMIN D3 70259 UNIT CAPS 2 CAPS PO WEEKLY CHOLECALCIFEROL 79051361220 No Longer Active Robbie Busby MD Active CYCLOBENZAPRINE HCL 10 MG TABS 1 tablet by mouth three times daily as needed for muscle spasm/pain for 10 days CYCLOBENZAPRINE HCL 15005460062 No Longer Active Robbie Busby MD Active PREDNISONE 20 MG TAB take 3 tabs daily for 3 days, 2 tabs daily for 3 days, 1 tab daily for 3 days, 1/2 tab daily for 4 days PREDNISONE 77524852635 No Longer Active Erin Garsia APRN Active CLONIDINE HCL 0.2 MG ORAL TABS 1 TAB BY MOUTH EVERY 8 HOURS 12/29 CLONIDINE HCL 25058466863 No Longer Active Erin Garsia APRN Active MECLIZINE HCL 25 MG TAB one 4 times a day as needed for dizziness MECLIZINE HCL 16386702120 No Longer Active Erin Garsia APRN Active SPIRONOLACTONE 25 MG TAB 4 tablets by mouth daily SPIRONOLACTONE 60067966971 No Longer Active Erin Garsia APRN Active LEVAQUIN 500 MG TAB 1 tablet by mouth daily for 7 days LEVOFLOXACIN 51510989603 No Longer Active Erin Garsia APRN Active BACTRIM DS 800-160 MG TAB 1 tab by mouth twice daily TRIMETHOPRIM-SULFAMETHOXAZOLE 92644252030 No Longer Active Robbie Busby MD Active HYDRALAZINE HCL 50 MG ORAL TABS TWO BY MOUTH THREE TIMES DAILY HYDRALAZINE HCL 33097007986 No Longer Active Rober Rodríguez APRN Active HYDROCODONE-ACETAMINOPHEN 5-325 MG TABS 1 tab by mouth BID prn back pain 2013 HYDROCODONE-ACETAMINOPHEN 17819825620 No Longer Active Jillina Anne ARGUELLO Active HYDROCHLOROTHIAZIDE TABS Take one by mouth daily HYDROCHLOROTHIAZIDE TABS 28790453098 No Longer Active Jillina Frazell 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 LAMISIL 125 MG ORAL PACK 1 TAB PO DAILY TERBINAFINE HCL 53297975892 No Longer Active Jillina Frazell 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 TRILEPTAL 150 MG ORAL TABS 1 TAB PO Q HS OXCARBAZEPINE 28322476825 No Longer Active Jillina Frazell 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 BETADINE 10 % EXT SOLN wash with solution to treat follicultis POVIDONE-IODINE 17926007017 No Longer Active Jillina Frazell 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 NYSTATIN 455394 UNIT/ML M/T SUSP 5mL po QID x 10 days NYSTATIN 69696089966 No Longer Active Erin Garsia APRN Active PREDNISONE 20 MG TAB 1 tablet twice daily for 2 days, then 1 tablet once daily for 2 days PREDNISONE 79964553091 No Longer Active Robbie Busby MD Active CEFDINIR 300 MG ORAL CAPS Take 1 cap po bid x 10 days CEFDINIR 21796101529 No Longer Active Robbie Busby MD Active AMLODIPINE BESYLATE 10 MG TABS 1 tablet by mouth daily AMLODIPINE BESYLATE 82004033743 Active Robbie Busby MD Active CARVEDILOL 25 MG TABS 1 & 1/2 TAB po BID CARVEDILOL 80333598536 Active Robbie Busby MD Active NEXIUM 40 MG CPDR 1 cap by mouth daily ESOMEPRAZOLE MAGNESIUM 09883614678 Active Robbie Busby MD Active PROTONIX 40 MG SOLR 1 po qday for acid reflux PANTOPRAZOLE SODIUM 11567955950 No Longer Active Gali Raida Active KEFLEX 500 MG CAP 1 po TID x 10 days CEPHALEXIN 36373650860 No Longer Active Robbie Busby MD Active TOPIRAMATE 50 MG ORAL TABS take 1 tab po BID for migraines. TOPIRAMATE 95141269163 Active Robbie Busby MD Active TEMAZEPAM 15 MG ORAL CAPS 1 TAB PO Q HS TEMAZEPAM 09039040543 Active Robbie Busby MD Active ALPRAZOLAM 2 MG ORAL TABS 1 TAB PO BID ALPRAZOLAM 50854612687 Active Robbie Busby MD Active FENOFIBRATE 145 MG TABS Take one by mouth daily FENOFIBRATE 02011091498 No Longer Active Robbie Busby MD Active SPIRONOLACTONE 50 MG TABS 1 tablet by mouth twice a day SPIRONOLACTONE 76859384427 No Longer Active Robbie Busby MD Active HYDRALAZINE HCL 25 MG TABS 1 tablet by mouth tid for hypertension HYDRALAZINE HCL 21126225918 No Longer Active Robbie Busby MD Active VIIBRYD 40 MG TABS take 1 tab po qday for depression. VILAZODONE HCL 69167769369 No Longer Active Robbie Busby MD Active TERBINAFINE HCL 250 MG TABS 1 tab po qday for foot infection 2014 TERBINAFINE HCL 50034621355 No Longer Active Robbie Busby MD Active GABAPENTIN 300 MG CAPS 1 po q hs for nerve pain GABAPENTIN 78004018468 Active Robbie Busby MD Active CHERATUSSIN AC 100-10 MG/5ML ORAL SOLN 7.5 mL PO q 4-6 hrs PRN cough GUAIFENESIN-CODEINE 68766197946 No Longer Active Robbie Busby MD Active AZITHROMYCIN 250 MG ORAL TABS 2 tablets PO today---then, 1 tablet PO daily x 4 more days (and 1 optional refill) AZITHROMYCIN 97321591067 No Longer Active Robbie Busby MD Active NORVASC 10 MG TAB 1 tablet by mouth daily AMLODIPINE BESYLATE 69986626386 No Longer Active Alex ALVAREZ Active IMDUR 60 MG TAB CR take 1 tab po qday for blood pressure ISOSORBIDE MONONITRATE Active Robbie Busby MD Active ISOSORBIDE DINITRATE 30 MG TABS Take one by mouth daily ISOSORBIDE DINITRATE 38896406427 No Longer Active Robbie Busby MD Active VIIBRYD 40 MG TABS 1 TA B PO DAILY VILAZODONE HCL 03394631221 Active Robbie Busby MD Active ZITHROMAX 250 MG TAB 2 po today, then 1 po q days 2-5 AZITHROMYCIN 12865625916 No Longer Active Robbie Busby MD Active [id number] 0.3 MG/24HR PTWK apply 2 patches q week for HTN CLONIDINE HCL 80114510559 Active Robbie Busby MD Active DOXAZOSIN MESYLATE 4 MG TABS Take one by mouth daily DOXAZOSIN MESYLATE 78423224607 Active Robbie Busby MD Active TOPROL XL 200 MG [id number] Take one by mouth daily METOPROLOL SUCCINATE 03847580678 Active Robbie Busby MD Active VENLAFAXINE HCL ER 150 MG TV01B-CBC Take one by mouth daily VENLAFAXINE HCL 49094311978 Active Robbie Busby MD Active LIPITOR 40 MG TABS Take one by mouth daily ATORVASTATIN CALCIUM 06929644067 Active Robbie Busby MD Active ISOSORBIDE DINITRATE 30 MG TABS Take one by mouth daily ISOSORBIDE DINITRATE 30 MG TABS 582978 ISOSORBIDE DINITRATE Inactive NORVASC 10 MG TAB 1 tablet by mouth daily NORVASC 10 MG TAB 241376 AMLODIPINE BESYLATE Inactive AZITHROMYCIN 250 MG ORAL TABS 2 tablets PO today---then, 1 tablet PO daily x 4 more days (and 1 optional refill) AZITHROMYCIN 250 MG ORAL TABS 5373792 AZITHROMYCIN Inactive CHERATUSSIN AC 100-10 MG/5ML ORAL SOLN 7.5 mL PO q 4-6 hrs PRN cough CHERATUSSIN AC 100-10 MG/5ML ORAL SOLN 107688 GUAIFENESIN- CODEINE Inactive VIIBRYD 40 MG TABS take 1 tab po qday for depression. VIIBRYD 40 MG TABS VILAZODONE HCL Inactive HYDRALAZINE HCL 25 MG TABS 1 tablet by mouth tid for hypertension HYDRALAZINE HCL 25 MG TABS 208428 HYDRALAZINE HCL Inactive SPIRONOLACTONE 50 MG TABS 1 tablet by mouth twice a day SPIRONOLACTONE 50 MG TABS 909228 SPIRONOLACTONE Inactive FENOFIBRATE 145 MG TABS Take one by mouth daily FENOFIBRATE 145 MG TABS 758140 FENOFIBRATE Inactive PROTONIX 40 MG SOLR 1 po qday for acid reflux PROTONIX 40 MG SOLR 885847 PANTOPRAZOLE SODIUM Inactive CEFDINIR 300 MG ORAL CAPS Take 1 cap po bid x 10 days CEFDINIR 300 MG ORAL CAPS 135592 CEFDINIR Inactive PREDNISONE 20 MG TAB 1 tablet twice daily for 2 days, then 1 tablet once daily for 2 days PREDNISONE 20 MG TAB 341927 PREDNISONE Inactive NYSTATIN 711233 UNIT/ML M/T SUSP 5mL po QID x 10 days NYSTATIN 297432 UNIT/ML M/T SUSP 816253 NYSTATIN Inactive BETADINE 10 % EXT SOLN wash with solution to treat follicultis BETADINE 10 % EXT SOLN 6405051 POVIDONE-IODINE Inactive TRILEPTAL 150 MG ORAL TABS 1 TAB PO Q HS TRILEPTAL 150 MG ORAL TABS 678858 OXCARBAZEPINE Inactive LAMISIL 125 MG ORAL PACK 1 TAB PO DAILY LAMISIL 125 MG ORAL PACK TERBINAFINE HCL Inactive HYDROCHLOROTHIAZIDE TABS Take one by mouth daily HYDROCHLOROTHIAZIDE TABS HYDROCHLOROTHIAZIDE TABS Inactive HYDROCODONE-ACETAMINOPHEN 5-325 MG TABS 1 tab by mouth BID prn back pain 2013 HYDROCODONE-ACETAMINOPHEN 5-325 MG TABS 250746 HYDROCODONE -ACETAMINOPHEN Inactive HYDRALAZINE HCL 50 MG ORAL TABS TWO BY MOUTH THREE TIMES DAILY HYDRALAZINE HCL 50 MG ORAL TABS 472922 HYDRALAZINE HCL Inactive LEVAQUIN 500 MG TAB 1 tablet by mouth daily for 7 days LEVAQUIN 500 MG TAB 518618 LEVOFLOXACIN Inactive SPIRONOLACTONE 25 MG TAB 4 tablets by mouth daily SPIRONOLACTONE 25 MG TAB 206652 SPIRONOLACTONE Inactive MECLIZINE HCL 25 MG TAB one 4 times a day as needed for dizziness MECLIZINE HCL 25 MG TAB 476903 MECLIZINE HCL Inactive CLONIDINE HCL 0.2 MG ORAL TABS 1 TAB BY MOUTH EVERY 8 HOURS 12/29 CLONIDINE HCL 0.2 MG ORAL TABS 036451 CLONIDINE HCL Inactive CYCLOBENZAPRINE HCL 10 MG TABS 1 tablet by mouth three times daily as needed for muscle spasm/pain for 10 days CYCLOBENZAPRINE HCL 10 MG TABS 357240 CYCLOBENZAPRINE HCL Inactive VITAMIN D3 04543 UNIT CAPS 2 CAPS PO WEEKLY VITAMIN D3 07898 UNIT CAPS CHOLECALCIFEROL Inactive FIORICET 50-300-40 MG ORAL CAPS take 1 tab po qday prn migraines. FIORICET 50-300-40 MG ORAL CAPS 828516 [id number] Inactive FLONASE 50 MCG/ACT SUSP 1 spray each nostril twice daily for allergies and runny nose FLONASE 50 MCG/ACT SUSP 3828157 FLUTICASONE PROPIONATE Inactive LORATADINE 10 MG TABS 1 tablet by mouth daily for congestion and allergies. LORATADINE 10 MG TABS 866614 LORATADINE Inactive NITROSTAT 0.4 MG SUBL PRN NITROSTAT 0.4 MG SUBL 229565 NITROGLYCERIN Inactive ZITHROMAX 250 MG TAB 2 po today, then 1 po q days 2-5 ZITHROMAX 250 MG TAB 0614038 AZITHROMYCIN Inactive TERBINAFINE HCL 250 MG TABS 1 tab po qday for foot infection 2014 TERBINAFINE HCL 250 MG TABS 794566 TERBINAFINE HCL Inactive KEFLEX 500 MG CAP 1 po TID x 10 days KEFLEX 500 MG CAP 213648 CEPHALEXIN Inactive BACTRIM DS 800-160 MG TAB 1 tab by mouth twice daily BACTRIM DS 800-160 MG TAB 915289 TRIMETHOPRIM-SULFAMETHOXAZOLE Inactive PREDNISONE 20 MG TAB take 3 tabs daily for 3 days, 2 tabs daily for 3 days, 1 tab daily for 3 days, 1/2 tab daily for 4 days PREDNISONE 20 MG TAB 786239 PREDNISONE Inactive Advance Directives Directive Description Start [...] % 11.6-14.8 platelet count 229 10^3/MM^3 10*3/mm3 519-811 0089/09/06 mean corpuscular volume, RBC 90 fL 80-97 [...] % 11.0-15.0 platelet count 185 THOUSAND/UL 10*3/mm3 052-192 4257/04/14 mean platelet volume 10.9 fL 7.5-12.5 erythrocyte (RBC) count 4.64 MILLION/UL 10*6/mm3 4.20-5.80 hemoglobin, blood 13.9 g/dL 13.2-17.1 hematocrit, blood 42.0 % 38.5-50.0 mean corpuscular volume, RBC 90.5 fL 80.0-100.0 mean corpuscular hemoglobin, RBC 29.9 pg 27.0-33.0 Lab Report: LIPID PANEL, TSH/899, T4, FREE/866 - Chemistry cholesterol, serum 220 mg/dL 651-554 6925/04/14 HDL cholesterol, serum 30 mg/dL > OR=40 [...] mg/dL Encounters Code Encounter Date Provider Facility CPT-52606 Level 3 Est. Patient 16:07:10 CDT Robbie Busby MD [facility] CPT-54665 Level 4 Est. Patient 11:56:16 CDT Erin Garsia [facility] CPT-04471 Level 3 Est. Patient 17:48:02 CDT Robbie Busby MD [facility] CPT-84177 Level 4 Est. 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 Patient 09:16:37 CDT Robbie Busby MD [facility] CPT-83435 Level 3 Est. Patient 19:38:43 CDT Robbie Busby MD [facility] CPT-50170 Level 3 Est. Patient 11:53:38 CDT Robbie Busby MD [facility] CPT-44731 Level 4 Est. Patient 12:52:22 CDT Rober Rodríguez [facility] CPT-88421 Level 4 Est. Patient 22:55:17 CDT Robbie Busby MD [facility] CPT-49665 Level 3 Est. Patient 12:38:24 CDT Desmond Diaz DO [facility] CPT-54376 Level 4 Est. 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 Patient 14:50:10 CDT Robbie Busby MD [facility] CPT-58251 Level 4 Est. Patient 23:30:43 CDT Robbie Busby MD [facility] CPT-51822 Level 4 Est. Patient 10:30:43 CDT Robbie Busby MD [facility] CPT-81867 Level 3 Est. Patient 17:08:12 CDT Alex Shaw [facility] CPT-25467 Level 4 Est. Patient 17:51:38 CDT Robbie Busby MD [facility] CPT-45779 Level 4 Est. Patient 14:00:21 CDT Robbie Busby MD [facility] CPT-78209 Level 4 Est. Patient 12:46:48 CDT Robbie Busby MD [facility] CPT-96207 Level 4 Est. Patient 13:34:33 CDT Robbie Busby MD [facility] CPT-50426 Level 4 Est. Patient 16:58:28 CDT Robbie Busby MD [facility] CPT-77620 Level 3 Est. Patient 19:36:53 CDT Alex ALVAREZ [facility] CPT-83479 Level 3 Est. Patient 12:58:15 CDT Robbie Busby MD [facility] Procedures Code Procedure Name Date Entry Date Standard Description CPT-32874 Venipuncture Draw Fee 14:39:06 CDT CPT-40551 Ribs unilateral 2V - XRAY USE ONLY 12:10:11 CDT CPT-39142 First Vx - Ix admin for Medicare patients 16:32:53 CDT CPT-44846 Boostrix Intramuscular Suspension 5-2.5-18.5 16:32:53 CDT CPT-12768 TB Skin Test 11:42:28 CDT CPT-13893 Tdap 7yrs or > 11:42:28 CDT CPT-J0696 Rocephin 1000 mg (Ceftriaxone) 17:43:43 PREPARED [employer]ODS SUPERVISOR CPT-J1040 Depo Medrol 80 mg (Methyl Prednisolone Acetate) 17:43: 43 [employer]ED FOODS SUPERVISOR CPT-J1100 Decadron 8mg (Dexamethasone) 17:43:42 PREPARED FOODS SUPERVISOR CPT-91135 Abx/Therapy Injection 17:43:42 PREPARED FOODS SUPERVISOR CPT-73111 Abx/Therapy Injection 17:43:42 PREPARED FOODS SUPERVISOR CPT-J1040 Depo Medrol 80 mg (Methyl Prednisolone Acetate) 09:43: 34 PREPARED FOODS SUPERVISOR CPT-J1100 Decadron 8mg (Dexamethasone) 09:43:34 PREPARED FOODS SUPERVISOR CPT-J0696 Rocephin 1gm Inj Solr 09:43:34 PREPARED FOODS SUPERVISOR CPT-66175 Wound Culture - LAB USE ONLY 14:00:21 CDT CPT-I/D I/D Abscess 09:16:37 CDT CPT-10522 Venipuncture Draw Fee 15:20:23 CDT CPT-46255 Microalbumin - LAB USE ONLY 16:02:19 CDT CPT-47028 CBC - LAB USE ONLY 16:02:19 CDT CPT-77052 Venipuncture Draw Fee 16:02:19 CDT CPT-G0438 Initial Annual Wellness Exam 08:10:28 CDT CPT-42904 Venipuncture Draw Fee 13:07:17 CDT CPT-G0008 Administration of Influenza Virus Vaccine 16:09:59 CDT CPT-45600 Fluzone Quadrivalent Intramuscular Suspension 0.5 ML 16: 09:59 CDT CPT-28685 Spec Collection and Handling Fee 15:05:50 CDT
--- OUTSIDE RECORDS SUMMARY | 2018-04-18 12:56 | XMS REPORT | Clinical Summary ---
Author Author Admin, AKUA Organization [facility] Address Unknown Phone Unavailable Allergies, Adverse Reactions, [...] ALVAREZ Acute bronchitis Seasonal allergies 477.9 Active Robbei Busby MD Allergic rhinitis, cause unspecified Onychomycosis, toenails 110.1 Active Robbie Busby MD Dermatophytosis of nail Dizziness 780.4 Active Robbie Busby MD Dizziness and giddiness Folliculitis 704.8 Active Robbie Busby MD Other specified diseases of hair and hair follicles Migraine 346.90 Active Robbie Busby MD Migraine, unspecified, without mention of intractable migraine, without mention of status migrainosus BPH 600.00 Active Robbei Busby MD Hypertrophy (benign) of prostate without [...] Hypertension, secondary, 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 Rober Rodríguez [employer] Other malignant secondary hypertension Tachycardia 785.0 Active [...] by mouth daily for 7 days LEVOFLOXACIN 63892519085 Active Erin Garsia APRN Active BACTRIM DS 800-160 MG TAB 1 tab by mouth twice daily TRIMETHOPRIM-SULFAMETHOXAZOLE 12710702717 No Longer Active Robbie Busby MD Active SPIRONOLACTONE 25 MG TAB 4 tablets by mouth daily SPIRONOLACTONE 04172456209 Active Robbie Busby MD Active HYDRALAZINE HCL 50 MG ORAL TABS TWO BY MOUTH THREE TIMES DAILY HYDRALAZINE HCL 03957795022 No Longer Active Andrellina Zulemal [employer] Active HYDROCODONE-ACETAMINOPHEN 5-325 MG TABS 1 tab by mouth BID prn back pain 2013 HYDROCODONE-ACETAMINOPHEN 53128521872 No Longer Active Jillina Frazell [employer] Active HYDROCHLOROTHIAZIDE TABS Take one by mouth daily HYDROCHLOROTHIAZIDE TABS 58267886674 No Longer Active Jillina Frazell [employer] Active LAMISIL 125 MG ORAL PACK 1 TAB PO DAILY TERBINAFINE HCL 13006864430 No Longer Active Jillina Frazell [employer] Active TRILEPTAL 150 MG ORAL TABS 1 TAB PO Q HS OXCARBAZEPINE 65466931636 No Longer Active Jillina Frazell [employer] Active BETADINE 10 % EXT SOLN wash with solution to treat follicultis POVIDONE-IODINE 13442819302 No Longer Active Jillina Frazell [employer] Active NYSTATIN 928125 UNIT/ML M/T SUSP 5mL po QID x 10 days NYSTATIN 40798694638 No Longer Active Erin Garsia APRN Active PREDNISONE 20 MG TAB 1 tablet twice daily for 2 days, then 1 tablet once daily for 2 days PREDNISONE 52624362856 No Longer Active Robbie Busby MD Active CEFDINIR 300 MG ORAL CAPS Take 1 cap po bid x 10 days CEFDINIR 95208015209 No Longer Active Robbie Busby MD Active AMLODIPINE BESYLATE 10 MG TABS 1 tablet by mouth daily AMLODIPINE BESYLATE 42337932910 Active Robbie Busby MD Active CARVEDILOL 25 MG TABS 1 & 1/2 TAB po BID CARVEDILOL 68544019307 Active Erin Garsia APRN Active VITAMIN D3 33615 UNIT CAPS 2 CAPS PO WEEKLY CHOLECALCIFEROL 89188679260 Active Erin Garsia APRN Active NEXIUM 40 MG CPDR 1 cap by mouth daily ESOMEPRAZOLE MAGNESIUM 86766711245 Active Robbie Busby MD Active PROTONIX 40 MG SOLR 1 po qday for acid reflux PANTOPRAZOLE SODIUM 72538068446 No Longer Active Gali Raida Active KEFLEX 500 MG CAP 1 po TID x 10 days CEPHALEXIN 42591204530 No Longer Active Robbie Busby MD Active FIORICET 50-300-40 MG ORAL CAPS take 1 tab po qday prn migraines. [id number] 97676503859 Active Robbie Busby MD Active TOPIRAMATE 50 MG ORAL TABS take 1 tab po BID for migraines. TOPIRAMATE 75929993016 Active Robbie Busby MD Active MECLIZINE HCL 25 MG TAB one 4 times a day as needed for dizziness MECLIZINE HCL 65178885110 Active Robbie Busby MD Active TEMAZEPAM 15 MG ORAL CAPS 1 TAB PO Q HS TEMAZEPAM 65625878180 Active Robbie Busby MD Active ALPRAZOLAM 2 MG ORAL TABS 1 TAB PO BID ALPRAZOLAM 19237773158 Active Robbie Busby MD Active FENOFIBRATE 145 MG TABS Take one by mouth daily FENOFIBRATE 04526410247 No Longer Active Robbie Busby MD Active SPIRONOLACTONE 50 MG TABS 1 tablet by mouth twice a day SPIRONOLACTONE 87877260922 No Longer Active Robbie Busby MD Active HYDRALAZINE HCL 25 MG TABS 1 tablet by mouth tid for hypertension HYDRALAZINE HCL 54713904679 No Longer Active Robbie Busby MD Active VIIBRYD 40 MG TABS take 1 tab po qday for depression. VILAZODONE HCL 91312638307 No Longer Active Robbie Busby MD Active TERBINAFINE HCL 250 MG TABS 1 tab po qday for foot infection 2014 TERBINAFINE HCL 96189935323 No Longer Active Robbie Busby MD Active GABAPENTIN 300 MG CAPS 1 po q hs for nerve pain GABAPENTIN 55969930474 Active Robbie Busby MD Active FLONASE 50 MCG/ACT SUSP 1 spray each nostril twice daily for allergies and runny nose FLUTICASONE PROPIONATE 43390399924 Active Robbie Busby MD Active CHERATUSSIN AC 100-10 MG/5ML ORAL SOLN 7.5 mL PO q 4-6 hrs PRN cough GUAIFENESIN-CODEINE 65638987502 No Longer Active Robbie Busby MD Active AZITHROMYCIN 250 MG ORAL TABS 2 tablets PO today---then, 1 tablet PO daily x 4 more days (and 1 optional refill) AZITHROMYCIN 19831091569 No Longer Active Robbie Busby MD Active CLONIDINE HCL 0.2 MG ORAL TABS 1 TAB BY MOUTH EVERY 8 HOURS CLONIDINE HCL 88160249836 Active Robbie Busby MD Active NORVASC 10 MG TAB 1 tablet by mouth daily AMLODIPINE BESYLATE 46436105652 No Longer Active Alex ALVAREZ Active IMDUR 60 MG TAB CR take 1 tab po qday for blood pressure ISOSORBIDE MONONITRATE Active Robbie Busby MD Active ISOSORBIDE DINITRATE 30 MG TABS Take one by mouth daily ISOSORBIDE DINITRATE 04927835563 No Longer Active Robbie Busby MD Active VIIBRYD 40 MG TABS 1 TA B PO DAILY VILAZODONE HCL 44395306360 Active Robbie Busby MD Active LORATADINE 10 MG TABS 1 tablet by mouth daily for congestion and allergies. LORATADINE 01366116721 Active Robbie Busby MD Active ZITHROMAX 250 MG TAB 2 po today, then 1 po q days 2-5 AZITHROMYCIN 28044663815 No Longer Active Robbie Busby MD Active [id number] 0.3 MG/24HR PTWK apply 2 patches q week for HTN CLONIDINE HCL 86666464049 Active Robbie Busby MD Active NITROSTAT 0.4 MG SUBL PRN NITROGLYCERIN 80124151117 Active Robbie Busby MD Active DOXAZOSIN MESYLATE 4 MG TABS Take one by mouth daily DOXAZOSIN MESYLATE 10500246076 Active Erin Garsia APRN Active TOPROL XL 200 MG [id number] Take one by mouth daily METOPROLOL SUCCINATE 54381087502 Active Robbie Busby MD Active VENLAFAXINE HCL ER 150 MG [id number] Take one by mouth daily VENLAFAXINE HCL 66797760213 Active Robbie Busby MD Active LIPITOR 40 MG TABS Take one by mouth daily ATORVASTATIN CALCIUM 56075947656 Active Robbie Busby MD Active ISOSORBIDE DINITRATE 30 MG TABS Take one by mouth daily ISOSORBIDE DINITRATE 30 MG TABS 866270 ISOSORBIDE DINITRATE Inactive NORVASC 10 MG TAB 1 tablet by mouth daily NORVASC 10 MG TAB 586869 AMLODIPINE BESYLATE Inactive AZITHROMYCIN 250 MG ORAL TABS 2 tablets PO today---then, 1 tablet PO daily x 4 more days (and 1 optional refill) AZITHROMYCIN 250 MG ORAL TABS 5343254 AZITHROMYCIN Inactive CHERATUSSIN AC 100-10 MG/5ML ORAL SOLN 7.5 mL PO q 4-6 hrs PRN cough CHERATUSSIN AC 100-10 MG/5ML ORAL SOLN 893550 GUAIFENESIN- CODEINE Inactive VIIBRYD 40 MG TABS take 1 tab po qday for depression. VIIBRYD 40 MG TABS VILAZODONE HCL Inactive HYDRALAZINE HCL 25 MG TABS 1 tablet by mouth tid for hypertension HYDRALAZINE HCL 25 MG TABS 943749 HYDRALAZINE HCL Inactive SPIRONOLACTONE 50 MG TABS 1 tablet by mouth twice a day SPIRONOLACTONE 50 MG TABS 127411 SPIRONOLACTONE Inactive FENOFIBRATE 145 MG TABS Take one by mouth daily FENOFIBRATE 145 MG TABS 488192 FENOFIBRATE Inactive PROTONIX 40 MG SOLR 1 po qday for acid reflux PROTONIX 40 MG SOLR 978320 PANTOPRAZOLE SODIUM Inactive CEFDINIR 300 MG ORAL CAPS Take 1 cap po bid x 10 days CEFDINIR 300 MG ORAL CAPS 501159 CEFDINIR Inactive PREDNISONE 20 MG TAB 1 tablet twice daily for 2 days, then 1 tablet once daily for 2 days PREDNISONE 20 MG TAB 221909 PREDNISONE Inactive NYSTATIN 107935 UNIT/ML M/T SUSP 5mL po QID x 10 days NYSTATIN 284079 UNIT/ML M/T SUSP 806485 NYSTATIN Inactive BETADINE 10 % EXT SOLN wash with solution to treat follicultis BETADINE 10 % EXT SOLN 3653169 POVIDONE-IODINE Inactive TRILEPTAL 150 MG ORAL TABS 1 TAB PO Q HS TRILEPTAL 150 MG ORAL TABS 324078 OXCARBAZEPINE Inactive LAMISIL 125 MG ORAL PACK 1 TAB PO DAILY LAMISIL 125 MG ORAL PACK TERBINAFINE HCL Inactive HYDROCHLOROTHIAZIDE TABS Take one by mouth daily HYDROCHLOROTHIAZIDE TABS HYDROCHLOROTHIAZIDE TABS Inactive HYDROCODONE-ACETAMINOPHEN 5-325 MG TABS 1 tab by mouth BID prn back pain 2013 HYDROCODONE-ACETAMINOPHEN 5-325 MG TABS 385421 HYDROCODONE -ACETAMINOPHEN Inactive HYDRALAZINE HCL 50 MG ORAL TABS TWO BY MOUTH THREE TIMES DAILY HYDRALAZINE HCL 50 MG ORAL TABS 979121 HYDRALAZINE HCL Inactive ZITHROMAX 250 MG TAB 2 po today, then 1 po q days 2-5 ZITHROMAX 250 MG TAB 1082626 AZITHROMYCIN Inactive TERBINAFINE HCL 250 MG TABS 1 tab po qday for foot infection 2014 TERBINAFINE HCL 250 MG TABS 144943 TERBINAFINE HCL Inactive KEFLEX 500 MG CAP 1 po TID x 10 days KEFLEX 500 MG CAP 399413 CEPHALEXIN Inactive BACTRIM DS 800-160 MG TAB 1 tab by mouth twice daily BACTRIM DS 800-160 MG TAB 048656 TRIMETHOPRIM-SULFAMETHOXAZOLE Inactive Advance Directives Directive Description Start [...] Acid - Chemistry sodium, serum 139 mmol/L 624-003 0601/04/22 carbon dioxide, venous blood 29.4 mmol/L 21.0-32.0 [...] to Follow Negative Lab Report: VITAMIN D, 25-HYDROXY/84579 - Chemistry vitamin D 25-hydroxy, serum 23 ng/mL 30-100 Encounters Code Encounter Date Provider Facility CPT-95186 Level 4 Est. Patient 12:00:49 [employer]LYST Rober Rodríguez APRN [facility] CPT-08193 Level 3 Est. Patient 09:16:37 CDT Robbie Busby MD [facility] CPT-44236 Level 3 Est. Patient 19:38:43 CDT Robbie Busby MD [facility] CPT-30624 Level 3 Est. Patient 11:53:38 CDT Robbie Busby MD [facility]-26268 Level 4 Est. Patient 12:52:22 CDT Rober Rodríguez APRN [facility] CPT-46316 Level 4 Est. Patient 22:55:17 CDT Robbie Busby MD [facility]-96256 Level 3 Est. Patient 12:38:24 CDT Desmond Diaz DO [facility] CPT-65348 Level 4 Est. 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 Patient 14:50:10 CDT Robbie Busby MD [facility] CPT-71268 Level 4 Est. Patient 23:30:43 CDT Robbie Busby MD [facility] CPT-53826 Level 4 Est. Patient 10:30:43 CDT Robbie Busby MD [facility] CPT-80135 Level 3 Est. Patient 17:08:12 CDT Alex ALVAREZ [facility] CPT-73396 Level 4 Est. Patient 17:51:38 CDT Robbie Busby MD [facility] CPT-79607 Level 4 Est. Patient 14:00:21 CDT Robbie Busby MD [facility] CPT-53627 Level 4 Est. Patient 12:46:48 CDT Robbie Busby MD [facility]-39660 Level 4 Est. Patient 13:34:33 CDT Robbie Busby MD [facility] CPT-64549 Level 4 Est. Patient 16:58:28 CDT Robbie Busby MD [facility] CPT-14092 Level 3 Est. Patient 19:36:53 CDT Alex ALVAREZ [facility] CPT-91204 Level 3 Est. 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 CPT-J1040 Depo Medrol 80 mg (Methyl Prednisolone Acetate) 17:43: 43 COMPUTER SYSTEMS DESIGN ANALYST CPT-J1100 Decadron 8mg (Dexamethasone) 17:43:42 COMPUTER SYSTEMS DESIGN ANALYST CPT-33326 Abx/Therapy Injection 17:43:42 COMPUTER SYSTEMS DESIGN ANALYST CPT-84872 Abx/Therapy Injection 17:43:42 COMPUTER SYSTEMS DESIGN ANALYST CPT-J1040 Depo Medrol 80 mg (Methyl Prednisolone Acetate) 09:43: 34 COMPUTER SYSTEMS DESIGN ANALYST CPT-J1100 Decadron 8mg (Dexamethasone) 09:43:34 COMPUTER SYSTEMS DESIGN ANALYST CPT-J0696 Rocephin 1gm Inj Solr 09:43:34 COMPUTER SYSTEMS DESIGN ANALYST CPT-83806 Wound Culture - LAB USE ONLY 14:00:21 CDT CPT-I/D I/D Abscess 09:16:37 CDT CPT-23413 Venipuncture Draw Fee 15:20:23 CDT CPT-06306 Microalbumin - LAB USE ONLY 16:02:19 CDT CPT-89367 CBC - LAB USE ONLY 16:02:19 CDT CPT-10125 Venipuncture Draw Fee 16:02:19 CDT CPT-G0438 Initial Annual Wellness Exam 08:10:28 CDT CPT-55715 Venipuncture Draw Fee 13:07:17 CDT CPT-G0008 Administration of Influenza Virus Vaccine 16:09:59 CDT CPT-53935 Fluzone Quadrivalent Intramuscular Suspension 0.5 ML 16: 09:59 CDT CPT-94112 Spec Collection and Handling Fee 15:05:50 CDT
--- OUTSIDE RECORDS SUMMARY | 2018-04-18 12:57 | XMS REPORT | Clinical Summary ---
Author Author Admin, [facility] Organization [facility] [...] 2 weeks for low testosterone TESTOSTERONE CYPIONATE 64838100016 Active Zulema Blank LPN Active CYCLOBENZAPRINE HCL 10 MG ORAL TABS 1 po TID PRN muscle spasm/pain for 10 days CYCLOBENZAPRINE HCL 21311514316 Active JONATHAN Moncada Active GUAIFENESIN 600 MG [id number] 1 tab po q am GUAIFENESIN 25794007207 Active Jillina Frazelariana GONZALEZN Active FLUTICASONE PROPIONATE 50 MCG/ACT SUSP 2 sprays per nostril bid for 1 week, then 1 spray bid FLUTICASONE PROPIONATE 58501640242 Active Jillina Anne GONZALEZN Active HYDRALAZINE HCL 25 MG ORAL TABS Take 1 tab BID. HYDRALAZINE HCL 71014720936 Active Jillina Anne GONZALEZN Active VITAMIN D3 44622 UNIT ORAL TABS 2 po weekly CHOLECALCIFEROL 43546379221 Active Robbie Busby MD Active OXYCODONE HCL ER 10 MG ORAL T12A 1 tab po 3 times qd. OXYCODONE HCL 01745416422 Active Robbie Busby MD Active NITROSTAT 0.4 MG SUBL PRN NITROGLYCERIN 62973388669 No Longer Active Robbie Busby MD Active LORATADINE 10 MG TABS 1 tablet by mouth daily for congestion and allergies. LORATADINE 31586949092 No Longer Active Robbie Busby MD Active FLONASE 50 MCG/ACT SUSP 1 spray each nostril twice daily for allergies and runny nose FLUTICASONE PROPIONATE 60788522043 No Longer Active Robbie Busby MD Active FIORICET 50-300-40 MG ORAL CAPS take 1 tab po qday prn migraines. [id number] 90682934330 No Longer Active Robbie Busby MD Active VITAMIN D3 22759 UNIT CAPS 2 CAPS PO WEEKLY CHOLECALCIFEROL 58897946158 No Longer Active Robbie Busby MD Active CYCLOBENZAPRINE HCL 10 MG TABS 1 tablet by mouth three times daily as needed for muscle spasm/pain for 10 days CYCLOBENZAPRINE HCL 59275532313 No Longer Active Robbie Busby MD Active PREDNISONE 20 MG TAB take 3 tabs daily for 3 days, 2 tabs daily for 3 days, 1 tab daily for 3 days, 1/2 tab daily for 4 days PREDNISONE 82933042722 No Longer Active Erin Garsia APRN Active CLONIDINE HCL 0.2 MG ORAL TABS 1 TAB BY MOUTH EVERY 8 HOURS 12/29 CLONIDINE HCL 80349065307 No Longer Active Erin Garsia APRN Active MECLIZINE HCL 25 MG TAB one 4 times a day as needed for dizziness MECLIZINE HCL 92245369485 No Longer Active Erin Garsia APRN Active SPIRONOLACTONE 25 MG TAB 4 tablets by mouth daily SPIRONOLACTONE 66069139602 No Longer Active Erin Garsia APRN Active LEVAQUIN 500 MG TAB 1 tablet by mouth daily for 7 days LEVOFLOXACIN 06942341743 No Longer Active Erin Garsia APRN Active BACTRIM DS 800-160 MG TAB 1 tab by mouth twice daily TRIMETHOPRIM-SULFAMETHOXAZOLE 37628795220 No Longer Active Robbie Busby MD Active HYDRALAZINE HCL 50 MG ORAL TABS TWO BY MOUTH THREE TIMES DAILY HYDRALAZINE HCL 47771320273 No Longer Active Andrellina Anne GONZALEZN Active HYDROCODONE-ACETAMINOPHEN 5-325 MG TABS 1 tab by mouth BID prn back pain 2013 HYDROCODONE-ACETAMINOPHEN 95461447125 No Longer Active Jillina Frazell [employer]ATION DESIGNER Active HYDROCHLOROTHIAZIDE TABS Take one by mouth daily HYDROCHLOROTHIAZIDE TABS 11721738274 No Longer Active Jillina Frazell [employer]OT[employer]Y DECORATION DESIGNER Active LAMISIL 125 MG ORAL PACK 1 TAB PO DAILY TERBINAFINE HCL 78755652304 No Longer Active Jillina Frazell POTTERY DECORATION DESIGNER Active TRILEPTAL 150 MG ORAL TABS 1 TAB PO Q HS OXCARBAZEPINE 64522234385 No Longer Active Jillina Frazell [employer] DECORATION DESIGNER Active BETADINE 10 % EXT SOLN wash with solution to treat follicultis POVIDONE-IODINE 76341405022 No Longer Active Jillina Frazell [employer]ATION DESIGNER Active NYSTATIN 006615 UNIT/ML M/T SUSP 5mL po QID x 10 days NYSTATIN 87852936573 No Longer Active Erin Garsia APRN Active PREDNISONE 20 MG TAB 1 tablet twice daily for 2 days, then 1 tablet once daily for 2 days PREDNISONE 37914030852 No Longer Active Robbie Busby MD Active CEFDINIR 300 MG ORAL CAPS Take 1 cap po bid x 10 days CEFDINIR 48061518899 No Longer Active Robbie Busby MD Active AMLODIPINE BESYLATE 10 MG TABS 1 tablet by mouth daily AMLODIPINE BESYLATE 82167531073 Active Robbie Busby MD Active CARVEDILOL 25 MG TABS 1 & 1/2 TAB po BID CARVEDILOL 52221762544 Active Robbie Busby MD Active NEXIUM 40 MG CPDR 1 cap by mouth daily ESOMEPRAZOLE MAGNESIUM 39462637339 Active Robbie Busby MD Active PROTONIX 40 MG SOLR 1 po qday for acid reflux PANTOPRAZOLE SODIUM 21665301004 No Longer Active Gali Raida Active KEFLEX 500 MG CAP 1 po TID x 10 days CEPHALEXIN 58453671356 No Longer Active Robbie Busby MD Active TOPIRAMATE 50 MG ORAL TABS take 1 tab po BID for migraines. TOPIRAMATE 28176638377 Active Robbie Busby MD Active TEMAZEPAM 15 MG ORAL CAPS 1 TAB PO Q HS TEMAZEPAM 12666960970 Active Robbie Busby MD Active ALPRAZOLAM 2 MG ORAL TABS 1 TAB PO BID ALPRAZOLAM 11581530676 Active Robbie Busby MD Active FENOFIBRATE 145 MG TABS Take one by mouth daily FENOFIBRATE 87449355551 No Longer Active Robbie Busby MD Active SPIRONOLACTONE 50 MG TABS 1 tablet by mouth twice a day SPIRONOLACTONE 87875561146 No Longer Active Robbie Busby MD Active HYDRALAZINE HCL 25 MG TABS 1 tablet by mouth tid for hypertension HYDRALAZINE HCL 67347416182 No Longer Active Robbie Busby MD Active VIIBRYD 40 MG TABS take 1 tab po qday for depression. VILAZODONE HCL 37600873754 No Longer Active Robbie Busby MD Active TERBINAFINE HCL 250 MG TABS 1 tab po qday for foot infection 2014 TERBINAFINE HCL 57650780575 No Longer Active Robbie Busby MD Active GABAPENTIN 300 MG CAPS 1 po q hs for nerve pain GABAPENTIN 51120087174 Active Robbie Busby MD Active CHERATUSSIN AC 100-10 MG/5ML ORAL SOLN 7.5 mL PO q 4-6 hrs PRN cough GUAIFENESIN-CODEINE 65987336479 No Longer Active Robbie Busby MD Active AZITHROMYCIN 250 MG ORAL TABS 2 tablets PO today---then, 1 tablet PO daily x 4 more days (and 1 optional refill) AZITHROMYCIN 61242334888 No Longer Active Robbie Busby MD Active NORVASC 10 MG TAB 1 tablet by mouth daily AMLODIPINE BESYLATE 03365797534 No Longer Active Alex ALVAREZ Active IMDUR 60 MG TAB CR take 1 tab po qday for blood pressure ISOSORBIDE MONONITRATE Active Robbie Busby MD Active ISOSORBIDE DINITRATE 30 MG TABS Take one by mouth daily ISOSORBIDE DINITRATE 35407125108 No Longer Active Robbie Busby MD Active VIIBRYD 40 MG TABS 1 TA B PO DAILY VILAZODONE HCL 93839869942 Active Robbie Busby MD Active ZITHROMAX 250 MG TAB 2 po today, then 1 po q days 2-5 AZITHROMYCIN 69627588105 No Longer Active Robbie Busby MD Active [id number] 0.3 MG/24HR PTWK apply 2 patches q week for HTN CLONIDINE HCL 15939119797 Active Robbie Busby MD Active DOXAZOSIN MESYLATE 4 MG TABS Take one by mouth daily DOXAZOSIN MESYLATE 54400189242 Active Robbie Busby MD Active TOPROL XL 200 MG [id number] Take one by mouth daily METOPROLOL SUCCINATE 30486447700 Active Robbie Busby MD Active VENLAFAXINE HCL ER 150 MG [id number] Take one by mouth daily VENLAFAXINE HCL 48546842155 Active Robbie Busby MD Active LIPITOR 40 MG TABS Take one by mouth daily ATORVASTATIN CALCIUM 14289811543 Active Robbie Busby MD Active ISOSORBIDE DINITRATE 30 MG TABS Take one by mouth daily ISOSORBIDE DINITRATE 30 MG TABS 510417 ISOSORBIDE DINITRATE Inactive NORVASC 10 MG TAB 1 tablet by mouth daily NORVASC 10 MG TAB 771568 AMLODIPINE BESYLATE Inactive AZITHROMYCIN 250 MG ORAL TABS 2 tablets PO today---then, 1 tablet PO daily x 4 more days (and 1 optional refill) AZITHROMYCIN 250 MG ORAL TABS 2867511 AZITHROMYCIN Inactive CHERATUSSIN AC 100-10 MG/5ML ORAL SOLN 7.5 mL PO q 4-6 hrs PRN cough CHERATUSSIN AC 100-10 MG/5ML ORAL SOLN 933908 GUAIFENESIN- CODEINE Inactive VIIBRYD 40 MG TABS take 1 tab po qday for depression. VIIBRYD 40 MG TABS VILAZODONE HCL Inactive HYDRALAZINE HCL 25 MG TABS 1 tablet by mouth tid for hypertension HYDRALAZINE HCL 25 MG TABS 359021 HYDRALAZINE HCL Inactive SPIRONOLACTONE 50 MG TABS 1 tablet by mouth twice a day SPIRONOLACTONE 50 MG TABS 218212 SPIRONOLACTONE Inactive FENOFIBRATE 145 MG TABS Take one by mouth daily FENOFIBRATE 145 MG TABS 302829 FENOFIBRATE Inactive PROTONIX 40 MG SOLR 1 po qday for acid reflux PROTONIX 40 MG SOLR 527922 PANTOPRAZOLE SODIUM Inactive CEFDINIR 300 MG ORAL CAPS Take 1 cap po bid x 10 days CEFDINIR 300 MG ORAL CAPS 268669 CEFDINIR Inactive PREDNISONE 20 MG TAB 1 tablet twice daily for 2 days, then 1 tablet once daily for 2 days PREDNISONE 20 MG TAB 507727 PREDNISONE Inactive NYSTATIN 152765 UNIT/ML M/T SUSP 5mL po QID x 10 days NYSTATIN 833619 UNIT/ML M/T SUSP 411937 NYSTATIN Inactive BETADINE 10 % EXT SOLN wash with solution to treat follicultis BETADINE 10 % EXT SOLN 2325935 POVIDONE-IODINE Inactive TRILEPTAL 150 MG ORAL TABS 1 TAB PO Q HS TRILEPTAL 150 MG ORAL TABS 328859 OXCARBAZEPINE Inactive LAMISIL 125 MG ORAL PACK 1 TAB PO DAILY LAMISIL 125 MG ORAL PACK TERBINAFINE HCL Inactive HYDROCHLOROTHIAZIDE TABS Take one by mouth daily HYDROCHLOROTHIAZIDE TABS HYDROCHLOROTHIAZIDE TABS Inactive HYDROCODONE-ACETAMINOPHEN 5-325 MG TABS 1 tab by mouth BID prn back pain 2013 HYDROCODONE-ACETAMINOPHEN 5-325 MG TABS 548339 HYDROCODONE -ACETAMINOPHEN Inactive HYDRALAZINE HCL 50 MG ORAL TABS TWO BY MOUTH THREE TIMES DAILY HYDRALAZINE HCL 50 MG ORAL TABS 861019 HYDRALAZINE HCL Inactive LEVAQUIN 500 MG TAB 1 tablet by mouth daily for 7 days LEVAQUIN 500 MG TAB 056902 LEVOFLOXACIN Inactive SPIRONOLACTONE 25 MG TAB 4 tablets by mouth daily SPIRONOLACTONE 25 MG TAB 848989 SPIRONOLACTONE Inactive MECLIZINE HCL 25 MG TAB one 4 times a day as needed for dizziness MECLIZINE HCL 25 MG TAB 907357 MECLIZINE HCL Inactive CLONIDINE HCL 0.2 MG ORAL TABS 1 TAB BY MOUTH EVERY 8 HOURS 12/29 CLONIDINE HCL 0.2 MG ORAL TABS 880577 CLONIDINE HCL Inactive CYCLOBENZAPRINE HCL 10 MG TABS 1 tablet by mouth three times daily as needed for muscle spasm/pain for 10 days CYCLOBENZAPRINE HCL 10 MG TABS 340551 CYCLOBENZAPRINE HCL Inactive VITAMIN D3 69809 UNIT CAPS 2 CAPS PO WEEKLY VITAMIN D3 90898 UNIT CAPS CHOLECALCIFEROL Inactive FIORICET 50-300-40 MG ORAL CAPS take 1 tab po qday prn migraines. FIORICET 50-300-40 MG ORAL CAPS 011487 [id number] Inactive FLONASE 50 MCG/ACT SUSP 1 spray each nostril twice daily for allergies and runny nose FLONASE 50 MCG/ACT SUSP 6844436 FLUTICASONE PROPIONATE Inactive LORATADINE 10 MG TABS 1 tablet by mouth daily for congestion and allergies. LORATADINE 10 MG TABS 796899 LORATADINE Inactive NITROSTAT 0.4 MG SUBL PRN NITROSTAT 0.4 MG SUBL 442008 NITROGLYCERIN Inactive ZITHROMAX 250 MG TAB 2 po today, then 1 po q days 2-5 ZITHROMAX 250 MG TAB 7701308 AZITHROMYCIN Inactive TERBINAFINE HCL 250 MG TABS 1 tab po qday for foot infection 2014 TERBINAFINE HCL 250 MG TABS 839976 TERBINAFINE HCL Inactive KEFLEX 500 MG CAP 1 po TID x 10 days KEFLEX 500 MG CAP 004458 CEPHALEXIN Inactive BACTRIM DS 800-160 MG TAB 1 tab by mouth twice daily BACTRIM DS 800-160 MG TAB 814440 TRIMETHOPRIM-SULFAMETHOXAZOLE Inactive PREDNISONE 20 MG TAB take 3 tabs daily for 3 days, 2 tabs daily for 3 days, 1 tab daily for 3 days, 1/2 tab daily for 4 days PREDNISONE 20 MG TAB 864231 PREDNISONE Inactive Advance Directives Directive Description Start [...] AUTO - Chemistry sodium, serum 142 mmol/L 884-795 8174/07/17 carbon dioxide, venous blood 28.2 mmol/L 21.0-32.0 [...] % 11.0-15.0 platelet count 185 THOUSAND/UL 10*3/mm3 505-060 6932/04/14 mean platelet volume 10.9 fL 7.5-12.5 Lab Report: LIPID PANEL, TSH/899, T4, FREE/866 - Chemistry cholesterol, serum 220 mg/dL 999-690 9331/04/14 HDL cholesterol, serum 30 mg/dL > OR=40 [...] 1.80 ng/mL 0.00-4.00 Lab Report: VITAMIN D, 25-HYDROXY/00904 - Chemistry vitamin D 25-hydroxy, serum 25 ng/mL 30-100 Office Visit: Confusion, dizziness after fall - Basic LDL target level 130 mg/dL Office Visit: Confusion, dizziness after fall - Chemistry HDL cholesterol, serum, target level 40 mg/dL triglyceride, target level 150 mg/dL cholesterol, target level 200 mg/dL Encounters Code Encounter Date Provider Facility CPT-69979 Level 4 Est. Patient 15:18:19 CDT Robbie Busby MD [facility] CPT-52598 Level 3 Est. Patient 09:00:37 CDT Rober Rodríguez [facility] CPT-93298 Level 3 Est. Patient 16:07:10 CDT Robbie Busby MD [facility] CPT-97473 Level 4 Est. Patient 11:56:16 CDT Erin Garsia [facility] CPT-76795 Level 3 Est. Patient 17:48:02 CDT Robbie Busby MD [facility] CPT-66581 Level 4 Est. Patient 12:00:49 PAYABLE MANAGER Rober Rodríguez [facility] CPT-66657 Level 3 Est. Patient 09:16:37 CDT Robbie Busby MD [facility] CPT-83866 Level 3 Est. Patient 19:38:43 CDT Robbie Busby MD [facility] CPT-79587 Level 3 Est. Patient 11:53:38 CDT Robbie Busby MD [facility] CPT-24031 Level 4 Est. Patient 12:52:22 CDT Rober Rodríguez [facility] CPT-22872 Level 4 Est. Patient 22:55:17 CDT Robbie Busby MD [facility] CPT-80564 Level 3 Est. Patient 12:38:24 CDT Desmond Diaz DO [facility] CPT-22070 Level 4 Est. Patient 11:25:03 PAYABLE MANAGER Robbie Busby MD [facility] CPT-89569 Level 4 Est. Patient 14:50:10 CDT Robbie Busby MD [facility] CPT-41481 Level 4 Est. Patient 23:30:43 CDT Robbie Busby MD [facility] CPT-79077 Level 4 Est. Patient 10:30:43 CDT Robbie Busby MD [facility] CPT-08910 Level 3 Est. Patient 17:08:12 CDT Alex ALVAREZ [facility] CPT-65032 Level 4 Est. Patient 17:51:38 CDT Robbie Busby MD [facility] CPT-26660 Level 4 Est. Patient 14:00:21 CDT Robbie Busby MD [facility] CPT-77852 Level 4 Est. Patient 12:46:48 CDT Robbie Busby MD [facility] CPT-09334 Level 4 Est. Patient 13:34:33 CDT Robbie Busby MD [facility] CPT-79513 Level 4 Est. Patient 16:58:28 CDT Robbie Busby MD [facility] CPT-94173 Level 3 Est. Patient 19:36:53 CDT Alex ALVAREZ [facility] CPT-19007 Level 3 Est. Patient 12:58:15 CDT Robbie Busby MD [facility] Procedures Code Procedure Name Date Entry Date Standard Description CPT-J1071 Depo Testosterone 200mg 14:17:22 CDT CPT-33320 Abx/Therapy Injection 14:17:22 CDT CPT-J1071 Depo Testosterone 200mg 09:03:53 CDT CPT-94754 Abx/Therapy Injection 09:03:53 CDT CPT-G0439 [facility] Annual Wellness Exam 16:47:44 CDT CPT-J1071 Depo Testosterone 200mg 09:06:28 CDT CPT-25720 Abx/Therapy Injection 09:06:28 CDT CPT-J1071 Depo Testosterone 200mg 08:30:01 CDT CPT-66622 Abx/Therapy Injection 08:30:01 CDT CPT-J1071 Depo Testosterone 200mg 08:24:00 CDT CPT-59166 Abx/Therapy Injection 08:24:00 CDT CPT-15537 Venipuncture Draw Fee 14:39:06 CDT CPT-19330 Ribs unilateral 2V - XRAY USE ONLY 12:10:11 CDT CPT-09310 First Vx - Ix admin for Medicare patients 16:32:53 CDT CPT-02479 Boostrix Intramuscular Suspension 5-2.5-18.5 16:32:53 CDT CPT-97860 TB Skin Test 11:42:28 CDT CPT-49915 Tdap 7yrs or > 11:42:28 CDT CPT-J0696 Rocephin 1000 mg (Ceftriaxone) 17:43:43 PAYABLE MANAGER CPT-J1040 Depo Medrol 80 mg (Methyl Prednisolone Acetate) 17:43: 43 PAYABLE MANAGER CPT-J1100 Decadron 8mg (Dexamethasone) 17:43:42 PAYABLE MANAGER CPT-91315 Abx/Therapy Injection 17:43:42 PAYABLE MANAGER CPT-09837 Abx/Therapy Injection 17:43:42 PAYABLE MANAGER CPT-J1040 Depo Medrol 80 mg (Methyl Prednisolone Acetate) 09:43: 34 PAYABLE MANAGER CPT-J1100 Decadron 8mg (Dexamethasone) 09:43:34 PAYABLE MANAGER CPT-J0696 Rocephin 1gm Inj Solr 09:43:34 PAYABLE MANAGER CPT-43807 Wound Culture - LAB USE ONLY 14:00:21 CDT CPT-I/D I/D Abscess 09:16:37 CDT CPT-09196 Venipuncture Draw Fee 15:20:23 CDT CPT-92884 Microalbumin - LAB USE ONLY 16:02:19 CDT CPT-61810 CBC - LAB USE ONLY 16:02:19 CDT CPT-30836 Venipuncture Draw Fee 16:02:19 CDT CPT-G0438 Initial Annual Wellness Exam 08:10:28 CDT CPT-34888 Venipuncture Draw Fee 13:07:17 CDT CPT-G0008 Administration of Influenza Virus Vaccine 16:09:59 CDT CPT-80504 Fluzone Quadrivalent Intramuscular Suspension 0.5 ML 16: 09:59 CDT CPT-54924 Spec Collection and Handling Fee 15:05:50 CDT
--- OUTSIDE RECORDS SUMMARY | 2018-04-18 12:58 | XMS REPORT | Clinical Summary ---
Author Author Admin, [facility] Organization [facility] Address Unknown Phone Unavailable Allergies, [...] Generic Name ND Status Provider Patient Instruction CHERATUSSIN AC 100-10 MG/5ML ORAL SOLN 7.5 mL PO q 4-6 hrs PRN cough GUAIFENESIN-CODEINE 06659656414 Active Alex ALVAREZ Active AZITHROMYCIN 250 MG ORAL TABS 2 tablets PO today---then, 1 tablet PO daily x 4 more days (and 1 optional refill) AZITHROMYCIN 42338551865 Active Alex ALVAREZ Active HYDROCHLOROTHIAZIDE TABS Take one by mouth daily HYDROCHLOROTHIAZIDE TABS 43549668881 Active Alex ALVAREZ Active NORVASC 10 MG TAB 1 tablet by mouth daily AMLODIPINE BESYLATE 28362996354 No Longer Active Alex ALVAREZ Active PROTONIX 40 MG SOLR 1 po qday for acid reflux PANTOPRAZOLE SODIUM 35245696324 Active Robbie Busby MD Active IMDUR 60 MG TAB CR take 1 tab po qday for blood pressure ISOSORBIDE MONONITRATE Active Robbie Busby MD Active ISOSORBIDE DINITRATE 30 MG TABS Take one by mouth daily ISOSORBIDE DINITRATE 21449611403 No Longer Active Robbie Busby MD Active VIIBRYD 40 MG TABS take 1 tab po qday for depression. VILAZODONE HCL 16772490987 Active Robbie Busby MD Active VIIBRYD 40 MG TABS 1 TA B PO DAILY VILAZODONE HCL 90635329270 Active Robbie Busby MD Active LORATADINE 10 MG TABS 1 tablet by mouth daily for congestion and allergies. LORATADINE 93638049995 Active Robbie Busby MD Active ZITHROMAX 250 MG TAB 2 po today, then 1 po q days 2-5 AZITHROMYCIN 71676286671 No Longer Active Robbie Busby MD Active HYDROCODONE-ACETAMINOPHEN 5-325 MG TABS 1 tab by mouth BID prn back pain 2013 HYDROCODONE-ACETAMINOPHEN 68497002008 Active Robbie Busby MD Active HYDRALAZINE HCL 50 MG TABS take 1 tab po QID for high blood pressure HYDRALAZINE HCL 68267394993 Active Robbie Busby MD Active [id number] 0.3 MG/24HR PTWK apply 2 patches q week for HTN CLONIDINE HCL 81555625726 Active Robbie Busby MD Active FENOFIBRATE 145 MG TABS Take one by mouth daily FENOFIBRATE 10129745085 Active Robbie Busby MD Active NITROSTAT 0.4 MG SUBL PRN NITROGLYCERIN 32755019700 Active Robbie Busby MD Active DOXAZOSIN MESYLATE 4 MG TABS Take one by mouth daily DOXAZOSIN MESYLATE 79977982135 Active Robbie Busby MD Active HYDRALAZINE HCL 25 MG TABS 1 tablet by mouth tid for hypertension HYDRALAZINE HCL 06358744106 Active Robbie Busby MD Active TOPROL XL 200 MG [id number]-HTA Take one by mouth daily METOPROLOL SUCCINATE 69783494792 Active Robbie Busby MD Active SPIRONOLACTONE 50 MG TABS 1 tablet by mouth twice a day SPIRONOLACTONE 55574514934 Active Robbie Busby MD Active VENLAFAXINE HCL ER 150 MG [id number] Take one by mouth daily VENLAFAXINE HCL 46275441170 Active Robbie Busby MD Active LIPITOR 40 MG TABS Take one by mouth daily ATORVASTATIN CALCIUM 91360952288 Active Robbie Busby MD Active ISOSORBIDE DINITRATE 30 MG TABS Take one by mouth daily ISOSORBIDE DINITRATE 30 MG TABS 961366 ISOSORBIDE DINITRATE Inactive NORVASC 10 MG TAB 1 tablet by mouth daily NORVASC 10 MG TAB 078992 AMLODIPINE BESYLATE Inactive ZITHROMAX 250 MG TAB 2 po today, then 1 po q days 2-5 ZITHROMAX 250 MG TAB 7227239 AZITHROMYCIN Inactive Vital Signs Date Name Value [...] Description Chart Maintenance: Outside labs entered on [employer] - Chemistry sodium, serum 140 mmol/L potassium, serum 3.5 mmol/L blood glucose 98 mg/dL creatinine, serum 1.49 mg/dL Chart Maintenance: Outside labs entered on [employer] - Hematology leukocyte count, blood 8.9 10*3/mm3 hemoglobin, blood 14.0 g/dL platelet count 285 10*3/mm3 Lab Report: Basic Metabolic Panel, UADIP W/MICRO, AUTO - Chemistry protein, total urine random 2+ mg/dL Negative RBC, urine, dipstick 2+ Negative creatinine, serum 1.70 mg/dL 0.60-1.30 urea nitrogen, blood 16 mg/dL 7-18 calcium, serum 9.8 mg/dL 8.5-10.1 blood glucose 80 mg/dL 65-110 carbon dioxide, [...] Report: CBC, Comp. Metabolic Panel - Chemistry carbon dioxide, venous blood 33.1 mmol/L 21.0-32.0 blood glucose 123 mg/dL 65-110 urea nitrogen, blood 11 mg/dL 7-18 creatinine, serum 1.70 mg/dL 0.60-1.30 alanine aminotransferase (SGPT), serum 30 U/L 12-78 aspartate aminotransferase (SGOT), serum 23 U/L 15-37 calcium, serum 9.5 mg/dL 8.5-10.1 bilirubin, serum, total 0.80 mg/dL 0.00-1.00 sodium, serum 141 mmol/L 662-874 3580/12/05 potassium, serum 4.0 mmol/L 3.5-5.2 chloride, serum 104 mmol/L 98-107 Lab Report: CBC, Comp. Metabolic Panel - [...] Office Visit: F/U Blood Pressure - Chemistry triglyceride, target level 150 mg/dL LDL target level 160 mg/dL HDL cholesterol, serum, target level 40 mg/dL cholesterol, target level 200 mg/dL Encounters Code Encounter Date Provider Facility CPT-34157 Level 3 Est. Patient 17:08:12 CDT Alex ALVAREZ [facility] CPT-11325 Level 4 Est. Patient 17:51:38 CDT Robbie Busby MD [facility] CPT-52283 Level 4 Est. Patient 14:00:21 CDT Robbie Busby MD [facility] CPT-89236 Level 4 Est. Patient 12:46:48 CDT Robbie Busby MD [facility] CPT-49048 Level 4 Est. Patient 13:34:33 CDT Robbie Busby MD [facility] CPT-12035 Level 4 Est. Patient 16:58:28 CDT Robbie Busby MD [facility] CPT-20665 Level 3 Est. Patient 19:36:53 CDT Alex ALVAREZ [facility] CPT-68970 Level 3 Est. Patient 12:58:15 CDT Robbie Busby MD [facility] Procedures Code Procedure Name Date Entry Date Standard Description CPT-G0008 Administration of Influenza Virus Vaccine 16:09:59 CDT CPT-12728 Fluzone Quadrivalent Intramuscular Suspension 0.5 ML 16: 09:59 CDT CPT-62097 Spec Collection and Handling Fee 15:05:50 CDT
--- OUTSIDE RECORDS SUMMARY | 2018-04-18 12:58 | XMS REPORT | Clinical Summary ---
Author Author Admin, Nicolas Organization [facility] Address Unknown Phone Unavailable Allergies, Adverse Reactions, [...] tablet once daily for 2 days PREDNISONE 29472533896 Active Desmond Diaz DO Active NEXIUM 40 MG CPDR 1 cap by mouth daily ESOMEPRAZOLE MAGNESIUM 43541480048 Active Gali Raida Active PROTONIX 40 MG SOLR 1 po qday for acid reflux PANTOPRAZOLE SODIUM 29164474347 No Longer Active Gali Rajuan carlos Active BETADINE 10 % EXT SOLN wash with solution to treat follicultis POVIDONE-IODINE 43801960155 Active Robbie Busby MD Active KEFLEX 500 MG CAP 1 po TID x 10 days CEPHALEXIN 35778766946 No Longer Active Robbie Busby MD Active FIORICET 50-300-40 MG ORAL CAPS take 1 tab po qday prn migraines. [id number] 70025400298 Active Robbie Busby MD Active TOPIRAMATE 50 MG ORAL TABS take 1 tab po BID for migraines. TOPIRAMATE 26979937184 Active Robbie Busby MD Active HYDRALAZINE HCL 50 MG ORAL TABS TWO BY MOUTH THREE TIMES DAILY HYDRALAZINE HCL 63446561842 Active Robbie Busby MD Active MECLIZINE HCL 25 MG TAB one 4 times a day as needed for dizziness MECLIZINE HCL 25990316263 Active Robbie Busby MD Active TRILEPTAL 150 MG ORAL TABS 1 TAB PO Q HS OXCARBAZEPINE 45323295621 Active Robbie Busby MD Active TEMAZEPAM 15 MG ORAL CAPS 1 TAB PO Q HS TEMAZEPAM 30725780910 Active Robbie Busby MD Active ALPRAZOLAM 2 MG ORAL TABS 1 TAB PO BID ALPRAZOLAM 06418800151 Active Robbie Busby MD Active FENOFIBRATE 145 MG TABS Take one by mouth daily FENOFIBRATE 65005037516 No Longer Active Robbie Busby MD Active LAMISIL 125 MG ORAL PACK 1 TAB PO DAILY TERBINAFINE HCL 02867827115 Active Robbie Busby MD Active SPIRONOLACTONE 50 MG TABS 1 tablet by mouth twice a day SPIRONOLACTONE 36334487030 No Longer Active Robbie Busby MD Active HYDRALAZINE HCL 25 MG TABS 1 tablet by mouth tid for hypertension HYDRALAZINE HCL 54236233687 No Longer Active Robbie Busby MD Active VIIBRYD 40 MG TABS take 1 tab po qday for depression. VILAZODONE HCL 47939624932 No Longer Active Robbie Busby MD Active TERBINAFINE HCL 250 MG TABS 1 tab po qday for foot infection 2014 TERBINAFINE HCL 14513781518 No Longer Active Robbie Busby MD Active GABAPENTIN 300 MG CAPS 1 po q hs for nerve pain GABAPENTIN 56225858220 Active Erin Garsia APRN Active FLONASE 50 MCG/ACT SUSP 1 spray each nostril twice daily for allergies and runny nose FLUTICASONE PROPIONATE 49163072259 Active Robbie Busby MD Active CHERATUSSIN AC 100-10 MG/5ML ORAL SOLN 7.5 mL PO q 4-6 hrs PRN cough GUAIFENESIN-CODEINE 07037103065 No Longer Active Robbie Busby MD Active AZITHROMYCIN 250 MG ORAL TABS 2 tablets PO today---then, 1 tablet PO daily x 4 more days (and 1 optional refill) AZITHROMYCIN 69139057874 No Longer Active Robbie Busby MD Active CLONIDINE HCL 0.2 MG ORAL TABS 1 TAB BY MOUTH EVERY 8 HOURS CLONIDINE HCL 60259678264 Active Robbie Busby MD Active HYDROCHLOROTHIAZIDE TABS Take one by mouth daily HYDROCHLOROTHIAZIDE TABS 06144058778 Active Alex ALVAREZ Active NORVASC 10 MG TAB 1 tablet by mouth daily AMLODIPINE BESYLATE 62464491289 No Longer Active Alex ALVAREZ Active IMDUR 60 MG TAB CR take 1 tab po qday for blood pressure ISOSORBIDE MONONITRATE Active Robbie Busby MD Active ISOSORBIDE DINITRATE 30 MG TABS Take one by mouth daily ISOSORBIDE DINITRATE 45105658594 No Longer Active Robbie Busby MD Active VIIBRYD 40 MG TABS 1 TA B PO DAILY VILAZODONE HCL 31897987219 Active Robbie Busby MD Active LORATADINE 10 MG TABS 1 tablet by mouth daily for congestion and allergies. LORATADINE 64208694398 Active Robbie Busby MD Active ZITHROMAX 250 MG TAB 2 po today, then 1 po q days 2-5 AZITHROMYCIN 68101564576 No Longer Active Robbie Busby MD Active HYDROCODONE-ACETAMINOPHEN 5-325 MG TABS 1 tab by mouth BID prn back pain 2013 HYDROCODONE-ACETAMINOPHEN 99547386832 Active Robbie Busby MD Active [id number] 0.3 MG/24HR PTWK apply 2 patches q week for HTN CLONIDINE HCL 99563340767 Active Robbie Busby MD Active NITROSTAT 0.4 MG SUBL PRN NITROGLYCERIN 47430246712 Active Robbie Busby MD Active DOXAZOSIN MESYLATE 4 MG TABS Take one by mouth daily DOXAZOSIN MESYLATE 42126636523 Active Robbie Busby MD Active TOPROL XL 200 MG [id number] Take one by mouth daily METOPROLOL SUCCINATE 00235379291 Active Robbie Busby MD Active VENLAFAXINE HCL ER 150 MG [id number] Take one by mouth daily VENLAFAXINE HCL 46059276012 Active Robbie Busby MD Active LIPITOR 40 MG TABS Take one by mouth daily ATORVASTATIN CALCIUM 58138632853 Active Robbie Busby MD Active ISOSORBIDE DINITRATE 30 MG TABS Take one by mouth daily ISOSORBIDE DINITRATE 30 MG TABS 376118 ISOSORBIDE DINITRATE Inactive NORVASC 10 MG TAB 1 tablet by mouth daily NORVASC 10 MG TAB 717285 AMLODIPINE BESYLATE Inactive AZITHROMYCIN 250 MG ORAL TABS 2 tablets PO today---then, 1 tablet PO daily x 4 more days (and 1 optional refill) AZITHROMYCIN 250 MG ORAL TABS 8781371 AZITHROMYCIN Inactive CHERATUSSIN AC 100-10 MG/5ML ORAL SOLN 7.5 mL PO q 4-6 hrs PRN cough CHERATUSSIN AC 100-10 MG/5ML ORAL SOLN 178554 GUAIFENESIN- CODEINE Inactive VIIBRYD 40 MG TABS take 1 tab po qday for depression. VIIBRYD 40 MG TABS VILAZODONE HCL Inactive HYDRALAZINE HCL 25 MG TABS 1 tablet by mouth tid for hypertension HYDRALAZINE HCL 25 MG TABS 808352 HYDRALAZINE HCL Inactive SPIRONOLACTONE 50 MG TABS 1 tablet by mouth twice a day SPIRONOLACTONE 50 MG TABS 604231 SPIRONOLACTONE Inactive FENOFIBRATE 145 MG TABS Take one by mouth daily FENOFIBRATE 145 MG TABS 891904 FENOFIBRATE Inactive PROTONIX 40 MG SOLR 1 po qday for acid reflux PROTONIX 40 MG SOLR PANTOPRAZOLE SODIUM Inactive ZITHROMAX 250 MG TAB 2 po today, then 1 po q days 2-5 ZITHROMAX 250 MG TAB 6845921 AZITHROMYCIN Inactive TERBINAFINE HCL 250 MG TABS 1 tab po qday for foot infection 2014 TERBINAFINE HCL 250 MG TABS 339177 TERBINAFINE HCL Inactive KEFLEX 500 MG CAP 1 po TID x 10 days KEFLEX 500 MG CAP 289487 CEPHALEXIN Inactive Vital Signs Date Name Value [...] PANEL - Chemistry cholesterol, serum 211 mg/dL 009-314 8699/08/31 triglyceride, serum, fasting 429 mg/dL 30-200 HDL [...] Negative Encounters Code Encounter Date Provider Facility [facility]-[id number] Level 3 Est. Patient 12:38:24 CDT Desmond Diaz DO [facility] CPT-62509 Level 4 Est. 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 Patient 14:50:10 CDT Robbie Busby MD [facility]-26207 Level 4 Est. Patient 23:30:43 CDT Robbie Busby MD [facility]-61423 Level 4 Est. Patient 10:30:43 CDT Robbie Busby MD [facility]-28968 Level 3 Est. Patient 17:08:12 CDT Alex Shaw [facility] CPT-97509 Level 4 Est. Patient 17:51:38 CDT Robbie Busby MD [facility]-38354 Level 4 Est. Patient 14:00:21 CDT Robbie Busby MD [facility]-44287 Level 4 Est. Patient 12:46:48 CDT Robbie Busby MD [facility]-00372 Level 4 Est. Patient 13:34:33 CDT Robbie Busby MD [facility]-34676 Level 4 Est. Patient 16:58:28 CDT Robbie Busby MD [facility]-18917 Level 3 Est. Patient 19:36:53 CDT Alex Shaw [facility]-28319 Level 3 Est. Patient 12:58:15 CDT Robbie Busby MD [facility] Procedures Code Procedure Name Date Entry Date Standard Description CPT-G0008 Administration of Influenza Virus Vaccine 16:09:59 CDT CPT-34047 Fluzone Quadrivalent Intramuscular Suspension 0.5 ML 16: 09:59 CDT CPT-22878 Spec Collection and Handling Fee 15:05:50 CDT
--- OUTSIDE RECORDS SUMMARY | 2018-04-18 13:00 | XMS REPORT | Clinical Summary ---
Author Author Admin, [facility] Organization [facility] Address Unknown Phone [...] 2 weeks for low testosterone TESTOSTERONE CYPIONATE 99303833397 Active Zulema Blank LPN Active CYCLOBENZAPRINE HCL 10 MG ORAL TABS 1 po TID PRN muscle spasm/pain for 10 days CYCLOBENZAPRINE HCL 38326523916 Active JONATHAN Moncada Active GUAIFENESIN 600 MG [id number] 1 tab po q am GUAIFENESIN 23469293661 Active Jillina Frazelariana GONZALEZN Active FLUTICASONE PROPIONATE 50 MCG/ACT SUSP 2 sprays per nostril bid for 1 week, then 1 spray bid FLUTICASONE PROPIONATE 53338806487 Active Jillina Anne GONZALEZN Active HYDRALAZINE HCL 25 MG ORAL TABS Take 1 tab BID. HYDRALAZINE HCL 74249223022 Active Jillina Anne GONZALEZN Active VITAMIN D3 27984 UNIT ORAL TABS 2 po weekly CHOLECALCIFEROL 40930903991 Active Robbie Busby MD Active OXYCODONE HCL ER 10 MG ORAL T12A 1 tab po 3 times qd. OXYCODONE HCL 50983764523 Active Robbie Busby MD Active NITROSTAT 0.4 MG SUBL PRN NITROGLYCERIN 80060096776 No Longer Active Robbie Busby MD Active LORATADINE 10 MG TABS 1 tablet by mouth daily for congestion and allergies. LORATADINE 53962973667 No Longer Active Robbie Busby MD Active FLONASE 50 MCG/ACT SUSP 1 spray each nostril twice daily for allergies and runny nose FLUTICASONE PROPIONATE 62300270358 No Longer Active Robbie Busby MD Active FIORICET 50-300-40 MG ORAL CAPS take 1 tab po qday prn migraines. [id number] 17870741876 No Longer Active Robbie Busby MD Active VITAMIN D3 79639 UNIT CAPS 2 CAPS PO WEEKLY CHOLECALCIFEROL 87413861713 No Longer Active Robbie Busby MD Active CYCLOBENZAPRINE HCL 10 MG TABS 1 tablet by mouth three times daily as needed for muscle spasm/pain for 10 days CYCLOBENZAPRINE HCL 66282809286 No Longer Active Robbie Busby MD Active PREDNISONE 20 MG TAB take 3 tabs daily for 3 days, 2 tabs daily for 3 days, 1 tab daily for 3 days, 1/2 tab daily for 4 days PREDNISONE 08813490131 No Longer Active Erin Garsia APRN Active CLONIDINE HCL 0.2 MG ORAL TABS 1 TAB BY MOUTH EVERY 8 HOURS 12/29 CLONIDINE HCL 90510688632 No Longer Active Erin Garsia APRN Active MECLIZINE HCL 25 MG TAB one 4 times a day as needed for dizziness MECLIZINE HCL 14499067746 No Longer Active Erin Garsia APRN Active SPIRONOLACTONE 25 MG TAB 4 tablets by mouth daily SPIRONOLACTONE 01146926513 No Longer Active Erin Garsia APRN Active LEVAQUIN 500 MG TAB 1 tablet by mouth daily for 7 days LEVOFLOXACIN 48709024990 No Longer Active Erin Garsia APRN Active BACTRIM DS 800-160 MG TAB 1 tab by mouth twice daily TRIMETHOPRIM-SULFAMETHOXAZOLE 99585863655 No Longer Active Robbie Busby MD Active HYDRALAZINE HCL 50 MG ORAL TABS TWO BY MOUTH THREE TIMES DAILY HYDRALAZINE HCL 27577452385 No Longer Active Andrellina Anne GONZALEZN Active HYDROCODONE-ACETAMINOPHEN 5-325 MG TABS 1 tab by mouth BID prn back pain 2013 HYDROCODONE-ACETAMINOPHEN 14108499088 No Longer Active Jillina 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 HYDROCHLOROTHIAZIDE TABS Take one by mouth daily HYDROCHLOROTHIAZIDE TABS 04876785747 No Longer Active Jillina 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 LAMISIL 125 MG ORAL PACK 1 TAB PO DAILY TERBINAFINE HCL 95548388514 No Longer Active Jillina 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 TRILEPTAL 150 MG ORAL TABS 1 TAB PO Q HS OXCARBAZEPINE 67377519617 No Longer Active Jillina 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 BETADINE 10 % EXT SOLN wash with solution to treat follicultis POVIDONE-IODINE 68919236669 No Longer Active Jillina 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 NYSTATIN 129947 UNIT/ML M/T SUSP 5mL po QID x 10 days NYSTATIN 47422840723 No Longer Active Erin Garsia APRN Active PREDNISONE 20 MG TAB 1 tablet twice daily for 2 days, then 1 tablet once daily for 2 days PREDNISONE 53796062756 No Longer Active Robbie Busby MD Active CEFDINIR 300 MG ORAL CAPS Take 1 cap po bid x 10 days CEFDINIR 85941005688 No Longer Active Robbie Busby MD Active AMLODIPINE BESYLATE 10 MG TABS 1 tablet by mouth daily AMLODIPINE BESYLATE 91401761419 Active Robbie Busby MD Active CARVEDILOL 25 MG TABS 1 & 1/2 TAB po BID CARVEDILOL 07872418946 Active Robbie Busby MD Active NEXIUM 40 MG CPDR 1 cap by mouth daily ESOMEPRAZOLE MAGNESIUM 21988731505 Active Robbie Busby MD Active PROTONIX 40 MG SOLR 1 po qday for acid reflux PANTOPRAZOLE SODIUM 74516420017 No Longer Active Gali Raida Active KEFLEX 500 MG CAP 1 po TID x 10 days CEPHALEXIN 70162825181 No Longer Active Robbie Busby MD Active TOPIRAMATE 50 MG ORAL TABS take 1 tab po BID for migraines. TOPIRAMATE 64975319662 Active Robbie Busby MD Active TEMAZEPAM 15 MG ORAL CAPS 1 TAB PO Q HS TEMAZEPAM 60376626748 Active Robbie Busby MD Active ALPRAZOLAM 2 MG ORAL TABS 1 TAB PO BID ALPRAZOLAM 27805692743 Active Robbie Busby MD Active FENOFIBRATE 145 MG TABS Take one by mouth daily FENOFIBRATE 88726987164 No Longer Active Robbie Busby MD Active SPIRONOLACTONE 50 MG TABS 1 tablet by mouth twice a day SPIRONOLACTONE 15124053190 No Longer Active Robbie Busby MD Active HYDRALAZINE HCL 25 MG TABS 1 tablet by mouth tid for hypertension HYDRALAZINE HCL 28921117002 No Longer Active Robbie Busby MD Active VIIBRYD 40 MG TABS take 1 tab po qday for depression. VILAZODONE HCL 20244791007 No Longer Active Robbie Busby MD Active TERBINAFINE HCL 250 MG TABS 1 tab po qday for foot infection 2014 TERBINAFINE HCL 79787304266 No Longer Active Robbie Busby MD Active GABAPENTIN 300 MG CAPS 1 po q hs for nerve pain GABAPENTIN 33057912972 Active Robbie Busby MD Active CHERATUSSIN AC 100-10 MG/5ML ORAL SOLN 7.5 mL PO q 4-6 hrs PRN cough GUAIFENESIN-CODEINE 21286441034 No Longer Active Robbie Busby MD Active AZITHROMYCIN 250 MG ORAL TABS 2 tablets PO today---then, 1 tablet PO daily x 4 more days (and 1 optional refill) AZITHROMYCIN 02678837917 No Longer Active Robbie Busby MD Active NORVASC 10 MG TAB 1 tablet by mouth daily AMLODIPINE BESYLATE 69095705108 No Longer Active Alex ALVAREZ Active IMDUR 60 MG TAB CR take 1 tab po qday for blood pressure ISOSORBIDE MONONITRATE Active Robbie Busby MD Active ISOSORBIDE DINITRATE 30 MG TABS Take one by mouth daily ISOSORBIDE DINITRATE 98676697384 No Longer Active Robbie Busby MD Active VIIBRYD 40 MG TABS 1 TA B PO DAILY VILAZODONE HCL 05870766382 Active Robbie Busby MD Active ZITHROMAX 250 MG TAB 2 po today, then 1 po q days 2-5 AZITHROMYCIN 42096919632 No Longer Active Robbie Busby MD Active [id number]-4 0.3 MG/24HR PTWK apply 2 patches q week for HTN CLONIDINE HCL 24521377050 Active Robbie Busby MD Active DOXAZOSIN MESYLATE 4 MG TABS Take one by mouth daily DOXAZOSIN MESYLATE 39140591550 Active Robbie Busby MD Active TOPROL XL 200 MG [id number] Take one by mouth daily METOPROLOL SUCCINATE 98243190343 Active Robbie Busby MD Active VENLAFAXINE HCL ER 150 MG [id number] Take one by mouth daily VENLAFAXINE HCL 33790563297 Active Robbie Busby MD Active LIPITOR 40 MG TABS Take one by mouth daily ATORVASTATIN CALCIUM 25907904992 Active Robbie Busby MD Active HYDROCHLOROTHIAZIDE TABS Take one by mouth daily HYDROCHLOROTHIAZIDE TABS HYDROCHLOROTHIAZIDE TABS Inactive BACTRIM DS 800-160 MG TAB 1 tab by mouth twice daily BACTRIM DS 800-160 MG TAB 242437 TRIMETHOPRIM-SULFAMETHOXAZOLE Inactive BETADINE 10 % EXT SOLN wash with solution to treat follicultis BETADINE 10 % EXT SOLN 9555131 POVIDONE-IODINE Inactive CLONIDINE HCL 0.2 MG ORAL TABS 1 TAB BY MOUTH EVERY 8 HOURS 12/29 CLONIDINE HCL 0.2 MG ORAL TABS 884967 CLONIDINE HCL Inactive CYCLOBENZAPRINE HCL 10 MG TABS 1 tablet by mouth three times daily as needed for muscle spasm/pain for 10 days CYCLOBENZAPRINE HCL 10 MG TABS 929586 CYCLOBENZAPRINE HCL Inactive HYDRALAZINE HCL 25 MG TABS 1 tablet by mouth tid for hypertension HYDRALAZINE HCL 25 MG TABS 719647 HYDRALAZINE HCL Inactive HYDRALAZINE HCL 50 MG ORAL TABS TWO BY MOUTH THREE TIMES DAILY HYDRALAZINE HCL 50 MG ORAL TABS 897680 HYDRALAZINE HCL Inactive ISOSORBIDE DINITRATE 30 MG TABS Take one by mouth daily ISOSORBIDE DINITRATE 30 MG TABS 347606 ISOSORBIDE DINITRATE Inactive KEFLEX 500 MG CAP 1 po TID x 10 days KEFLEX 500 MG CAP 663063 CEPHALEXIN Inactive NITROSTAT 0.4 MG SUBL PRN NITROSTAT 0.4 MG SUBL 708114 NITROGLYCERIN Inactive NORVASC 10 MG TAB 1 tablet by mouth daily NORVASC 10 MG TAB 446856 AMLODIPINE BESYLATE Inactive NYSTATIN 757894 UNIT/ML M/T SUSP 5mL po QID x 10 days NYSTATIN 073493 UNIT/ML M/T SUSP 368071 NYSTATIN Inactive PREDNISONE 20 MG TAB 1 tablet twice daily for 2 days, then 1 tablet once daily for 2 days PREDNISONE 20 MG TAB 538778 PREDNISONE Inactive PREDNISONE 20 MG TAB take 3 tabs daily for 3 days, 2 tabs daily for 3 days, 1 tab daily for 3 days, 1/2 tab daily for 4 days PREDNISONE 20 MG TAB 181914 PREDNISONE Inactive SPIRONOLACTONE 25 MG TAB 4 tablets by mouth daily SPIRONOLACTONE 25 MG TAB 798966 SPIRONOLACTONE Inactive LORATADINE 10 MG TABS 1 tablet by mouth daily for congestion and allergies. LORATADINE 10 MG TABS 917527 LORATADINE Inactive SPIRONOLACTONE 50 MG TABS 1 tablet by mouth twice a day SPIRONOLACTONE 50 MG TABS 872376 SPIRONOLACTONE Inactive MECLIZINE HCL 25 MG TAB one 4 times a day as needed for dizziness MECLIZINE HCL 25 MG TAB 537270 MECLIZINE HCL Inactive TERBINAFINE HCL 250 MG TABS 1 tab po qday for foot infection 2014 TERBINAFINE HCL 250 MG TABS 069211 TERBINAFINE HCL Inactive LEVAQUIN 500 MG TAB 1 tablet by mouth daily for 7 days LEVAQUIN 500 MG TAB 345634 LEVOFLOXACIN Inactive ZITHROMAX 250 MG TAB 2 po today, then 1 po q days 2-5 ZITHROMAX 250 MG TAB 5666912 AZITHROMYCIN Inactive AZITHROMYCIN 250 MG ORAL TABS 2 tablets PO today---then, 1 tablet PO daily x 4 more days (and 1 optional refill) AZITHROMYCIN 250 MG ORAL TABS 1230285 AZITHROMYCIN Inactive CEFDINIR 300 MG ORAL CAPS Take 1 cap po bid x 10 days CEFDINIR 300 MG ORAL CAPS 931090 CEFDINIR Inactive TRILEPTAL 150 MG ORAL TABS 1 TAB PO Q HS TRILEPTAL 150 MG ORAL TABS 405520 OXCARBAZEPINE Inactive PROTONIX 40 MG SOLR 1 po qday for acid reflux PROTONIX 40 MG SOLR 727270 PANTOPRAZOLE SODIUM Inactive FLONASE 50 MCG/ACT SUSP 1 spray each nostril twice daily for allergies and runny nose FLONASE 50 MCG/ACT SUSP 3695935 FLUTICASONE PROPIONATE Inactive HYDROCODONE-ACETAMINOPHEN 5-325 MG TABS 1 tab by mouth BID prn back pain 2013 HYDROCODONE-ACETAMINOPHEN 5-325 MG TABS 737375 HYDROCODONE -ACETAMINOPHEN Inactive FENOFIBRATE 145 MG TABS Take one by mouth daily FENOFIBRATE 145 MG TABS 999796 FENOFIBRATE Inactive LAMISIL 125 MG ORAL PACK 1 TAB PO DAILY LAMISIL 125 MG ORAL PACK TERBINAFINE HCL Inactive VIIBRYD 40 MG TABS take 1 tab po qday for depression. VIIBRYD 40 MG TABS VILAZODONE HCL Inactive VITAMIN D3 23645 UNIT CAPS 2 CAPS PO WEEKLY VITAMIN D3 48820 UNIT CAPS CHOLECALCIFEROL Inactive CHERATUSSIN AC 100-10 MG/5ML ORAL SOLN 7.5 mL PO q 4-6 hrs PRN cough CHERATUSSIN AC 100-10 MG/5ML ORAL SOLN 331064 GUAIFENESIN- CODEINE Inactive FIORICET 50-300-40 MG ORAL CAPS take 1 tab po qday prn migraines. FIORICET 50-300-40 MG ORAL CAPS 199206 [id number]-[id number] Inactive Advance Directives Directive Description Start Date [...] AUTO - Chemistry sodium, serum 142 mmol/L 532-718 7728/07/17 carbon dioxide, venous blood 28.2 mmol/L 21.0-32.0 [...] % 11.0-15.0 platelet count 185 THOUSAND/UL 10*3/mm3 007-876 7329/04/14 mean platelet volume 10.9 fL 7.5-12.5 Lab Report: LIPID PANEL, TSH/899, T4, FREE/866 - Chemistry cholesterol, serum 220 mg/dL 371-067 6569/04/14 HDL cholesterol, serum 30 mg/dL > OR=40 triglyceride, serum, fasting 466 mg/dL <150 LDL cholesterol, serum SEE NOTE mg/dL (calc) mg/dL <130 cholesterol/HDL ratio, serum 7.3 (calc) < OR=5.0 Lab Report: Prostatic Specific Ag - Chemistry prostate specific antigen 1.80 ng/mL 0.00-4.00 Lab Report: VITAMIN D, 25-HYDROXY/91872 - Chemistry vitamin D 25-hydroxy, serum 25 ng/mL 30-100 Office Visit: Confusion, dizziness after fall - Basic LDL target level 130 mg/dL Office Visit: Confusion, dizziness after fall - Chemistry HDL cholesterol, serum, target level 40 mg/dL triglyceride, target level 150 mg/dL cholesterol, target level 200 mg/dL Encounters Code Encounter Date Provider Facility CPT-55149 Level 4 Est. Patient 15:18:19 CDT Robbie Busby MD [facility] CPT-48059 Level 3 Est. Patient 09:00:37 CDT Rober Rodríguez APRN [facility] CPT-28190 Level 3 Est. Patient 16:07:10 CDT Robbie Busby MD [facility] CPT-98423 Level 4 Est. Patient 11:56:16 CDT Erin [facility] CPT-70194 Level 3 Est. Patient 17:48:02 CDT Robbie Busby MD [facility] CPT-47946 Level 4 Est. 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 Patient 09:16:37 CDT Robbie Busby MD [facility] CPT-74590 Level 3 Est. Patient 19:38:43 CDT Robbie Busby MD [facility]-82375 Level 3 Est. Patient 11:53:38 CDT Robbie Busby MD [facility] CPT-41558 Level 4 Est. Patient 12:52:22 CDT Rober Rod[facility] CPT-27890 Level 4 Est. Patient 22:55:17 CDT Robbie Busby MD [facility]-25671 Level 3 Est. Patient 12:38:24 CDT Desmond Diaz DO [facility] CPT-26387 Level 4 Est. 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 Patient 14:50:10 CDT Robbie Busby MD [facility] CPT-85243 Level 4 Est. Patient 23:30:43 CDT Robbie Busby MD [facility] CPT-73025 Level 4 Est. Patient 10:30:43 CDT Robbie Busby MD [facility] CPT-53068 Level 3 Est. Patient 17:08:12 CDT Alex ALVAREZ [facility] CPT-27433 Level 4 Est. Patient 17:51:38 CDT Robbie Busby MD [facility] CPT-19087 Level 4 Est. Patient 14:00:21 CDT Robbie Busby MD [facility] CPT-64198 Level 4 Est. Patient 12:46:48 CDT Robbie Busby MD [facility] CPT-62778 Level 4 Est. Patient 13:34:33 CDT Robbie Busby MD [facility] CPT-71417 Level 4 Est. Patient 16:58:28 CDT Robbie Busby MD [facility] CPT-74022 Level 3 Est. Patient 19:36:53 CDT Alex ALVAREZ [facility] CPT-25708 Level 3 Est. Patient 12:58:15 CDT Robbie Busby MD [facility] Procedures Code Procedure Name Date Entry Date Standard Description CPT-J1071 Depo Testosterone 200mg 09:03:53 CDT CPT-87403 Abx/Therapy Injection 09:03:53 CDT CPT-G0439 [facility] Annual Wellness Exam 16:47:44 CDT CPT-J1071 Depo Testosterone 200mg 09:06:28 CDT CPT-54378 Abx/Therapy Injection 09:06:28 CDT CPT-J1071 Depo Testosterone 200mg 08:30:01 CDT CPT-11753 Abx/Therapy Injection 08:30:01 CDT CPT-J1071 Depo Testosterone 200mg 08:24:00 CDT CPT-94071 Abx/Therapy Injection 08:24:00 CDT CPT-69756 Venipuncture Draw Fee 14:39:06 CDT CPT-06642 Ribs unilateral 2V - XRAY USE ONLY 12:10:11 CDT CPT-31307 First Vx - Ix admin for Medicare patients 16:32:53 CDT CPT-09121 Boostrix Intramuscular Suspension 5-2.5-18.5 16:32:53 CDT CPT-98230 TB Skin Test 11:42:28 CDT CPT-44598 Tdap 7yrs or > 11:42:28 CDT CPT-J0696 Rocephin 1000 mg (Ceftriaxone) 17:43:43 SALES AND MARKETING ASSISTANT CPT-J1040 Depo Medrol 80 mg (Methyl Prednisolone Acetate) 17:43: 43 SALES AND MARKETING ASSISTANT CPT-J1100 Decadron 8mg (Dexamethasone) 17:43:42 SALES AND MARKETING ASSISTANT CPT-28869 Abx/Therapy Injection 17:43:42 SALES AND MARKETING ASSISTANT CPT-98772 Abx/Therapy Injection 17:43:42 SALES AND MARKETING ASSISTANT CPT-J1040 Depo Medrol 80 mg (Methyl Prednisolone Acetate) 09:43: 34 SALES AND MARKETING ASSISTANT CPT-J1100 Decadron 8mg (Dexamethasone) 09:43:34 SALES AND MARKETING ASSISTANT CPT-J0696 Rocephin 1gm Inj Solr 09:43:34 SALES AND MARKETING ASSISTANT CPT-80208 Wound Culture - LAB USE ONLY 14:00:21 CDT CPT-I/D I/D Abscess 09:16:37 CDT CPT-89305 Venipuncture Draw Fee 15:20:23 CDT CPT-25886 Microalbumin - LAB USE ONLY 16:02:19 CDT CPT-17670 CBC - LAB USE ONLY 16:02:19 CDT CPT-63908 Venipuncture Draw Fee 16:02:19 CDT CPT-G0438 Initial Annual Wellness Exam 08:10:28 CDT CPT-50835 Venipuncture Draw Fee 13:07:17 CDT CPT-G0008 Administration of Influenza Virus Vaccine 16:09:59 CDT CPT-81061 Fluzone Quadrivalent Intramuscular Suspension 0.5 ML 16: 09:59 CDT CPT-04347 Spec Collection and Handling Fee 15:05:50 CDT
--- OUTSIDE RECORDS SUMMARY | 2018-04-18 13:01 | XMS REPORT | Clinical Summary ---
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 Other malignant secondary hypertension Tachycardia 785.0 Active [...] muscle spasm/pain for 10 days CYCLOBENZAPRINE HCL 03269047971 Active Erin Garsia APRN Active PREDNISONE 20 MG TAB take 3 tabs daily for 3 days, 2 tabs daily for 3 days, 1 tab daily for 3 days, 1/2 tab daily for 4 days PREDNISONE 76694898855 No Longer Active Erin Garsia APRN Active CLONIDINE HCL 0.2 MG ORAL TABS 1 TAB BY MOUTH EVERY 8 HOURS 12/29 CLONIDINE HCL 23862487761 No Longer Active Erin Garsia APRN Active MECLIZINE HCL 25 MG TAB one 4 times a day as needed for dizziness MECLIZINE HCL 82568878683 No Longer Active Erin Garsia APRN Active SPIRONOLACTONE 25 MG TAB 4 tablets by mouth daily SPIRONOLACTONE 81399516820 No Longer Active Erin Garsia APRN Active LEVAQUIN 500 MG TAB 1 tablet by mouth daily for 7 days LEVOFLOXACIN 74792642777 No Longer Active Erin Garsia APRN Active BACTRIM DS 800-160 MG TAB 1 tab by mouth twice daily TRIMETHOPRIM-SULFAMETHOXAZOLE 34972839787 No Longer Active Robbie Busby MD Active HYDRALAZINE HCL 50 MG ORAL TABS TWO BY MOUTH THREE TIMES DAILY HYDRALAZINE HCL 89530227721 No Longer Active Jillina Frazell RENTAL SALES ASSOCIATE Active HYDROCODONE-ACETAMINOPHEN 5-325 MG TABS 1 tab by mouth BID prn back pain 2013 HYDROCODONE-ACETAMINOPHEN 56943969003 No Longer Active Jillina Frazell RENTAL SALES ASSOCIATE Active HYDROCHLOROTHIAZIDE TABS Take one by mouth daily HYDROCHLOROTHIAZIDE TABS 38533973330 No Longer Active Jillina Frazell 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 ASSOCIATE Active LAMISIL 125 MG ORAL PACK 1 TAB PO DAILY TERBINAFINE HCL 52155636450 No Longer Active Jillina Frazell RENTAL SALES ASSOCIATE Active TRILEPTAL 150 MG ORAL TABS 1 TAB PO Q HS OXCARBAZEPINE 11781357336 No Longer Active Jillina Frazell RENTAL SALES ASSOCIATE Active BETADINE 10 % EXT SOLN wash with solution to treat follicultis POVIDONE-IODINE 38108783113 No Longer Active Andrellina Zulemal RENTAL SALES ASSOCIATE Active NYSTATIN 085955 UNIT/ML M/T SUSP 5mL po QID x 10 days NYSTATIN 40150797054 No Longer Active Erin Garsia APRN Active PREDNISONE 20 MG TAB 1 tablet twice daily for 2 days, then 1 tablet once daily for 2 days PREDNISONE 07998976811 No Longer Active Robbie Busby MD Active CEFDINIR 300 MG ORAL CAPS Take 1 cap po bid x 10 days CEFDINIR 99624692216 No Longer Active Robbie Busby MD Active AMLODIPINE BESYLATE 10 MG TABS 1 tablet by mouth daily AMLODIPINE BESYLATE 33944205323 Active Robbie Busby MD Active CARVEDILOL 25 MG TABS 1 & 1/2 TAB po BID CARVEDILOL 06779521915 Active Erin Garsia APRN Active VITAMIN D3 69320 UNIT CAPS 2 CAPS PO WEEKLY CHOLECALCIFEROL 45686061678 Active Erin Garsia APRN Active NEXIUM 40 MG CPDR 1 cap by mouth daily ESOMEPRAZOLE MAGNESIUM 04057177078 Active Robbie Busby MD Active PROTONIX 40 MG SOLR 1 po qday for acid reflux PANTOPRAZOLE SODIUM 78837420256 No Longer Active Gali Negro Active KEFLEX 500 MG CAP 1 po TID x 10 days CEPHALEXIN 36117183829 No Longer Active Robbie Busby MD Active FIORICET 50-300-40 MG ORAL CAPS take 1 tab po qday prn migraines. [id number]-[id number] 28559987252 Active Robbie Busby MD Active TOPIRAMATE 50 MG ORAL TABS take 1 tab po BID for migraines. TOPIRAMATE 60091980913 Active Robbie Busby MD Active TEMAZEPAM 15 MG ORAL CAPS 1 TAB PO Q HS TEMAZEPAM 93350160263 Active Robbie Busby MD Active ALPRAZOLAM 2 MG ORAL TABS 1 TAB PO BID ALPRAZOLAM 08646585414 Active Robbie Busby MD Active FENOFIBRATE 145 MG TABS Take one by mouth daily FENOFIBRATE 12398624216 No Longer Active Robbie Busby MD Active SPIRONOLACTONE 50 MG TABS 1 tablet by mouth twice a day SPIRONOLACTONE 40317109413 No Longer Active Robbie Busby MD Active HYDRALAZINE HCL 25 MG TABS 1 tablet by mouth tid for hypertension HYDRALAZINE HCL 02624675476 No Longer Active Robbie Busby MD Active VIIBRYD 40 MG TABS take 1 tab po qday for depression. VILAZODONE HCL 52500389156 No Longer Active Robbie Busby MD Active TERBINAFINE HCL 250 MG TABS 1 tab po qday for foot infection 2014 TERBINAFINE HCL 65285352013 No Longer Active Robbie Busby MD Active GABAPENTIN 300 MG CAPS 1 po q hs for nerve pain GABAPENTIN 97094781617 Active Robbie Busby MD Active FLONASE 50 MCG/ACT SUSP 1 spray each nostril twice daily for allergies and runny nose FLUTICASONE PROPIONATE 70753267320 Active Robbie Busby MD Active CHERATUSSIN AC 100-10 MG/5ML ORAL SOLN 7.5 mL PO q 4-6 hrs PRN cough GUAIFENESIN-CODEINE 29217561376 No Longer Active Robbie Busby MD Active AZITHROMYCIN 250 MG ORAL TABS 2 tablets PO today---then, 1 tablet PO daily x 4 more days (and 1 optional refill) AZITHROMYCIN 49931708903 No Longer Active Robbie Busby MD Active NORVASC 10 MG TAB 1 tablet by mouth daily AMLODIPINE BESYLATE 96052546359 No Longer Active Alex ALVAREZ Active IMDUR 60 MG TAB CR take 1 tab po qday for blood pressure ISOSORBIDE MONONITRATE Active Robbie Busby MD Active ISOSORBIDE DINITRATE 30 MG TABS Take one by mouth daily ISOSORBIDE DINITRATE 98953647892 No Longer Active Robbie Busby MD Active VIIBRYD 40 MG TABS 1 TA B PO DAILY VILAZODONE HCL 11511510908 Active Robbie Busby MD Active LORATADINE 10 MG TABS 1 tablet by mouth daily for congestion and allergies. LORATADINE 17143564865 Active Robbie Busby MD Active ZITHROMAX 250 MG TAB 2 po today, then 1 po q days 2-5 AZITHROMYCIN 24892144485 No Longer Active Robbie Busby MD Active [id number] 0.3 MG/24HR PTWK apply 2 patches q week for HTN CLONIDINE HCL 94648202359 Active Robbie Busby MD Active NITROSTAT 0.4 MG SUBL PRN NITROGLYCERIN 01393688303 Active Robbie Busby MD Active DOXAZOSIN MESYLATE 4 MG TABS Take one by mouth daily DOXAZOSIN MESYLATE 34526869471 Active Erin Ady [employer] SALES ASSOCIATE Active TOPROL XL 200 MG [id number] Take one by mouth daily METOPROLOL SUCCINATE 74986963030 Active Robbie Busby MD Active VENLAFAXINE HCL ER 150 MG [id number] Take one by mouth daily VENLAFAXINE HCL 23250800804 Active Robbie Busby MD Active LIPITOR 40 MG TABS Take one by mouth daily ATORVASTATIN CALCIUM 10963168710 Active Robbie Busby MD Active ISOSORBIDE DINITRATE 30 MG TABS Take one by mouth daily ISOSORBIDE DINITRATE 30 MG TABS 470366 ISOSORBIDE DINITRATE Inactive NORVASC 10 MG TAB 1 tablet by mouth daily NORVASC 10 MG TAB 500199 AMLODIPINE BESYLATE Inactive AZITHROMYCIN 250 MG ORAL TABS 2 tablets PO today---then, 1 tablet PO daily x 4 more days (and 1 optional refill) AZITHROMYCIN 250 MG ORAL TABS 4312519 AZITHROMYCIN Inactive CHERATUSSIN AC 100-10 MG/5ML ORAL SOLN 7.5 mL PO q 4-6 hrs PRN cough CHERATUSSIN AC 100-10 MG/5ML ORAL SOLN 550167 GUAIFENESIN- CODEINE Inactive VIIBRYD 40 MG TABS take 1 tab po qday for depression. VIIBRYD 40 MG TABS VILAZODONE HCL Inactive HYDRALAZINE HCL 25 MG TABS 1 tablet by mouth tid for hypertension HYDRALAZINE HCL 25 MG TABS 296444 HYDRALAZINE HCL Inactive SPIRONOLACTONE 50 MG TABS 1 tablet by mouth twice a day SPIRONOLACTONE 50 MG TABS 675744 SPIRONOLACTONE Inactive FENOFIBRATE 145 MG TABS Take one by mouth daily FENOFIBRATE 145 MG TABS 718849 FENOFIBRATE Inactive PROTONIX 40 MG SOLR 1 po qday for acid reflux PROTONIX 40 MG SOLR 591474 PANTOPRAZOLE SODIUM Inactive CEFDINIR 300 MG ORAL CAPS Take 1 cap po bid x 10 days CEFDINIR 300 MG ORAL CAPS 395516 CEFDINIR Inactive PREDNISONE 20 MG TAB 1 tablet twice daily for 2 days, then 1 tablet once daily for 2 days PREDNISONE 20 MG TAB 680593 PREDNISONE Inactive NYSTATIN 029745 UNIT/ML M/T SUSP 5mL po QID x 10 days NYSTATIN 723989 UNIT/ML M/T SUSP 678009 NYSTATIN Inactive BETADINE 10 % EXT SOLN wash with solution to treat follicultis BETADINE 10 % EXT SOLN 7813331 POVIDONE-IODINE Inactive TRILEPTAL 150 MG ORAL TABS 1 TAB PO Q HS TRILEPTAL 150 MG ORAL TABS 903944 OXCARBAZEPINE Inactive LAMISIL 125 MG ORAL PACK 1 TAB PO DAILY LAMISIL 125 MG ORAL PACK TERBINAFINE HCL Inactive HYDROCHLOROTHIAZIDE TABS Take one by mouth daily HYDROCHLOROTHIAZIDE TABS HYDROCHLOROTHIAZIDE TABS Inactive HYDROCODONE-ACETAMINOPHEN 5-325 MG TABS 1 tab by mouth BID prn back pain 2013 HYDROCODONE-ACETAMINOPHEN 5-325 MG TABS 263720 HYDROCODONE -ACETAMINOPHEN Inactive HYDRALAZINE HCL 50 MG ORAL TABS TWO BY MOUTH THREE TIMES DAILY HYDRALAZINE HCL 50 MG ORAL TABS 607486 HYDRALAZINE HCL Inactive LEVAQUIN 500 MG TAB 1 tablet by mouth daily for 7 days LEVAQUIN 500 MG TAB 021189 LEVOFLOXACIN Inactive SPIRONOLACTONE 25 MG TAB 4 tablets by mouth daily SPIRONOLACTONE 25 MG TAB 096810 SPIRONOLACTONE Inactive MECLIZINE HCL 25 MG TAB one 4 times a day as needed for dizziness MECLIZINE HCL 25 MG TAB 961649 MECLIZINE HCL Inactive CLONIDINE HCL 0.2 MG ORAL TABS 1 TAB BY MOUTH EVERY 8 HOURS 12/29 CLONIDINE HCL 0.2 MG ORAL TABS 712920 CLONIDINE HCL Inactive ZITHROMAX 250 MG TAB 2 po today, then 1 po q days 2-5 ZITHROMAX 250 MG TAB 3314481 AZITHROMYCIN Inactive TERBINAFINE HCL 250 MG TABS 1 tab po qday for foot infection 2014 TERBINAFINE HCL 250 MG TABS 949038 TERBINAFINE HCL Inactive KEFLEX 500 MG CAP 1 po TID x 10 days KEFLEX 500 MG CAP 932036 CEPHALEXIN Inactive BACTRIM DS 800-160 MG TAB 1 tab by mouth twice daily BACTRIM DS 800-160 MG TAB 191745 TRIMETHOPRIM-SULFAMETHOXAZOLE Inactive PREDNISONE 20 MG TAB take 3 tabs daily for 3 days, 2 tabs daily for 3 days, 1 tab daily for 3 days, 1/2 tab daily for 4 days PREDNISONE 20 MG TAB 277390 PREDNISONE Inactive Advance Directives Directive Description Start [...] % 11.0-15.0 platelet count 185 THOUSAND/UL 10*3/mm3 800-753 2874/04/14 mean platelet volume 10.9 fL 7.5-12.5 Lab Report: HEPATITIS B SAB/Immune Status, RUBELLA IGG AB(Immune Status) - Serology rubella antibody, serum, IgG 2.06 Lab Report: LIPID PANEL, TSH/899, T4, FREE/866 - Chemistry cholesterol, serum 220 mg/dL 854-184 8203/04/14 HDL cholesterol, serum 30 mg/dL > OR=40 triglyceride, serum, fasting 466 mg/dL <150 LDL cholesterol, serum SEE NOTE mg/dL (calc) mg/dL <130 cholesterol/HDL ratio, serum 7.3 (calc) < OR=5.0 Lab Report: MICROALB/CREAT W/RATIO - Chemistry albumin/creatinine ratio, urine < 30 mg/g mg/g{creat} 0-29 Lab Report: MICROALB/CREAT W/RATIO - Lab microalbumin, urine 80 0-19 Lab Report: VITAMIN D, 25-HYDROXY/64286 - Chemistry vitamin D 25-hydroxy, serum 23 ng/mL 30-100 Encounters Code Encounter Date Provider Facility CPT-20037 Level 4 Est. 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 Patient 09:16:37 CDT Robbie Busby MD [facility] CPT-85359 Level 3 Est. Patient 19:38:43 CDT Robbie Busby MD [facility] CPT-34562 Level 3 Est. Patient 11:53:38 CDT Robbie Busby MD [facility] CPT-52166 Level 4 Est. Patient 12:52:22 CDT Rober Rodríguez [facility] CPT-32198 Level 4 Est. Patient 22:55:17 CDT Robbie Busby MD [facility] CPT-05645 Level 3 Est. Patient 12:38:24 CDT Desmond Diaz DO [facility] CPT-35330 Level 4 Est. 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 Patient 14:50:10 CDT Robbie Busby MD [facility] CPT-54744 Level 4 Est. Patient 23:30:43 CDT Robbie Busby MD [facility] CPT-77680 Level 4 Est. Patient 10:30:43 CDT Robbie Busby MD [facility] CPT-88169 Level 3 Est. Patient 17:08:12 CDT Alex ALVAREZ [facility] CPT-03135 Level 4 Est. Patient 17:51:38 CDT Robbie Busby MD [facility] CPT-59712 Level 4 Est. Patient 14:00:21 CDT Robbie Busby MD [facility] CPT-32473 Level 4 Est. Patient 12:46:48 CDT Robbie Busby MD [facility] CPT-81481 Level 4 Est. Patient 13:34:33 CDT Robbie Busby MD [facility] CPT-12991 Level 4 Est. Patient 16:58:28 CDT Robbie Busby MD [facility] CPT-13175 Level 3 Est. Patient 19:36:53 CDT Alex ALVAREZ [facility] CPT-09371 Level 3 Est. Patient 12:58:15 CDT Robbie Busby MD [facility] Procedures Code Procedure Name Date Entry Date Standard Description CPT-J0696 Rocephin 1000 mg (Ceftriaxone) 17:43:43 FACTORY MACHINE COMPUTER OPERATOR CPT-J1040 Depo Medrol 80 mg (Methyl Prednisolone Acetate) 17:43: 43 FACTORY MACHINE COMPUTER OPERATOR CPT-J1100 Decadron 8mg (Dexamethasone) 17:43:42 FACTORY MACHINE COMPUTER OPERATOR CPT-63972 Abx/Therapy Injection 17:43:42 FACTORY MACHINE COMPUTER OPERATOR CPT-13811 Abx/Therapy Injection 17:43:42 FACTORY MACHINE COMPUTER OPERATOR CPT-J1040 Depo Medrol 80 mg (Methyl Prednisolone Acetate) 09:43: 34 FACTORY MACHINE COMPUTER OPERATOR CPT-J1100 Decadron 8mg (Dexamethasone) 09:43:34 FACTORY MACHINE COMPUTER OPERATOR CPT-J0696 Rocephin 1gm Inj Solr 09:43:34 FACTORY MACHINE COMPUTER OPERATOR CPT-73991 Wound Culture - LAB USE ONLY 14:00:21 CDT CPT-I/D I/D Abscess 09:16:37 CDT CPT-13258 Venipuncture Draw Fee 15:20:23 CDT CPT-94395 Microalbumin - LAB USE ONLY 16:02:19 CDT CPT-50828 CBC - LAB USE ONLY 16:02:19 CDT CPT-02350 Venipuncture Draw Fee 16:02:19 CDT CPT-G0438 Initial Annual Wellness Exam 08:10:28 CDT CPT-90701 Venipuncture Draw Fee 13:07:17 CDT CPT-G0008 Administration of Influenza Virus Vaccine 16:09:59 CDT CPT-74137 Fluzone Quadrivalent Intramuscular Suspension 0.5 ML 16: 09:59 CDT CPT-71932 Spec Collection and Handling Fee 15:05:50 CDT
--- OUTSIDE RECORDS SUMMARY | 2018-04-18 13:02 | XMS REPORT | Clinical Summary ---
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 Acute upper respiratory infections of unspecified site Hypertension 401.9 Active Rober Rodríguez APRN Unspecified essential hypertension Sinusitis - acute 461.9 Active Erin Garsia APRN Acute sinusitis, unspecified Acute confusion 293.0 Active Erni Garsia APRN Delirium due to conditions classified [...] pain, chronic 724.2 Active Robbie Busby MD [facility] Medication List Medication Instructions Start Date Stop Date Generic Name NDC Status Provider Patient Instruction GUAIFENESIN ER 600 MG ORAL TABLET EXTENDED RELEASE 12 HOUR 1 tab po q am 2016 GUAIFENESIN [id number] No Longer Active Robbie Busby MD Active DIVALPROEX SODIUM ER 500 MG ORAL TABLET EXTENDED RELEASE 24 HOUR Once daily DIVALPROEX SODIUM 70147377278 Active Robbie Busby MD Active DEPO-TESTOSTERONE 200 MG/ML INTRAMUSCULAR SOLUTION 1 IM Injections every 2 weeks for low testosterone TESTOSTERONE CYPIONATE 70873732774 Active Zulema Blank LPN Active CYCLOBENZAPRINE HCL 10 MG ORAL TABLET 1 po TID PRN muscle spasm/pain for 10 days CYCLOBENZAPRINE HCL 13898368307 Active JONATHAN Moncada Active FLUTICASONE PROPIONATE 50 MCG/ACT NASAL SUSPENSION 2 sprays per nostril bid for 1 week, then 1 spray bid FLUTICASONE PROPIONATE 29211259982 Active Rober Rodríguez CHAIN PULLER Active HYDRALAZINE HCL 25 MG ORAL TABLET Take 1 tab BID. HYDRALAZINE HCL 23903470121 Active Rober Rodríguez APRN Active VITAMIN D3 09098 UNIT ORAL TABLET 2 po weekly CHOLECALCIFEROL 45879555112 Active Robbie Busby MD Active OXYCODONE HCL ER 10 MG ORAL TABLET ER 12 HOUR ABUSE-DETERRENT 1 tab po 3 times qd. OXYCODONE HCL 84031815998 Active Robbie Busby MD Active NITROSTAT 0.4 MG SUBLINGUAL TABLET SUBLINGUAL PRN NITROGLYCERIN 69740675737 No Longer Active Robbie Busby MD Active LORATADINE 10 MG ORAL TABLET 1 tablet by mouth daily for congestion and allergies. LORATADINE 07540357470 No Longer Active Robbie Busby MD Active FLONASE 50 MCG/ACT NASAL SUSPENSION 1 spray each nostril twice daily for allergies and runny nose FLUTICASONE PROPIONATE 91970170567 No Longer Active Robbie Busby MD Active FIORICET 50-300-40 MG ORAL CAPSULE take 1 tab po qday prn migraines. [id number] 32065220605 No Longer Active Robbie Busby MD Active VITAMIN D3 79930 UNIT ORAL CAPSULE 2 CAPS PO WEEKLY CHOLECALCIFEROL 90119264265 No Longer Active Robbie Busby MD Active CYCLOBENZAPRINE HCL 10 MG ORAL TABLET 1 tablet by mouth three times daily as needed for muscle spasm/pain for 10 days CYCLOBENZAPRINE HCL 46191534123 No Longer Active Robbie Busby MD Active PREDNISONE 20 MG ORAL TABLET take 3 tabs daily for 3 days, 2 tabs daily for 3 days, 1 tab daily for 3 days, 1/2 tab daily for 4 days PREDNISONE 00552863491 No Longer Active Erin Garsia APRN Active CLONIDINE HCL 0.2 MG ORAL TABLET 1 TAB BY MOUTH EVERY 8 HOURS CLONIDINE HCL 33754548702 No Longer Active Erin Garsia APRN Active MECLIZINE HCL 25 MG ORAL TABLET one 4 times a day as needed for dizziness MECLIZINE HCL 71124545505 No Longer Active Erin Garsia APRN Active SPIRONOLACTONE 25 MG ORAL TABLET 4 tablets by mouth daily SPIRONOLACTONE 65418766802 No Longer Active Erin Garsia APRN Active LEVAQUIN 500 MG ORAL TABLET 1 tablet by mouth daily for 7 days LEVOFLOXACIN 77681394219 No Longer Active Erin Garsia APRN Active BACTRIM DS 800-160 MG ORAL TABLET 1 tab by mouth twice daily 2015 TRIMETHOPRIM-SULFAMETHOXAZOLE 31067168034 No Longer Active Robbie Busby MD Active HYDRALAZINE HCL 50 MG ORAL TABLET TWO BY MOUTH THREE TIMES DAILY HYDRALAZINE HCL 75078302653 No Longer Active Rober Rodríguez APRN Active HYDROCODONE-ACETAMINOPHEN 5-325 MG ORAL TABLET 1 tab by mouth BID prn back pain HYDROCODONE-ACETAMINOPHEN 18445537239 No Longer Active Jillld Rodríguez APRN Active HYDROCHLOROTHIAZIDE TABLET Take one by mouth daily HYDROCHLOROTHIAZIDE TABS 33157565942 No Longer Active Andrellld Rodríguez APRN Active LAMISIL 125 MG ORAL PACKET 1 TAB PO DAILY TERBINAFINE HCL 68516920088 No Longer Active Andrellld Rodríguez APRN Active TRILEPTAL 150 MG ORAL TABLET 1 TAB PO Q HS OXCARBAZEPINE 58962803735 No Longer Active Rober Rodríguez APRN Active BETADINE 10 % EXTERNAL SOLUTION wash with 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 07/29 POVIDONE-IODINE 35784220729 No Longer Active Rober Rodríguez APRN Active NYSTATIN 749511 UNIT/ML MOUTH/THROAT SUSPENSION 5mL po QID x 10 days NYSTATIN 41716335627 No Longer Active Erin Garsia APRN Active PREDNISONE 20 MG ORAL TABLET 1 tablet twice daily for 2 days, then 1 tablet once daily for 2 days PREDNISONE 48546761229 No Longer Active Robbie Busby MD Active CEFDINIR 300 MG ORAL CAPSULE Take 1 cap po bid x 10 days CEFDINIR 43668585631 No Longer Active Robbie Busby MD Active AMLODIPINE BESYLATE 10 MG ORAL TABLET 1 tablet by mouth daily AMLODIPINE BESYLATE 01666427638 Active Robbie Busby MD Active CARVEDILOL 25 MG ORAL TABLET 1 & 1/2 TAB po BID CARVEDILOL 20473007368 Active Robbie Busby MD Active NEXIUM 40 MG ORAL CAPSULE DELAYED RELEASE 1 cap by mouth daily ESOMEPRAZOLE MAGNESIUM 74485139663 Active Robbie Busby MD Active PROTONIX 40 MG INTRAVENOUS SOLUTION RECONSTITUTED 1 po qday for acid reflux PANTOPRAZOLE SODIUM 01272602514 No Longer Active Gali Raida Active KEFLEX 500 MG ORAL CAPSULE 1 po TID x 10 days CEPHALEXIN 92415543025 No Longer Active Robbie Busby MD Active TOPIRAMATE 50 MG ORAL TABLET take 1 tab po BID for migraines. TOPIRAMATE 52504512980 Active Robbie Busby MD Active TEMAZEPAM 15 MG ORAL CAPSULE 1 TAB PO Q HS TEMAZEPAM 75699654559 Active Robbie Busby MD Active ALPRAZOLAM 2 MG ORAL TABLET 1 TAB PO BID ALPRAZOLAM 87502816094 Active Robbie Busby MD Active FENOFIBRATE 145 MG ORAL TABLET Take one by mouth daily FENOFIBRATE 11333182026 No Longer Active Robbie Busby MD Active SPIRONOLACTONE 50 MG ORAL TABLET 1 tablet by mouth twice a day SPIRONOLACTONE 95686337923 No Longer Active Robbie Busby MD Active HYDRALAZINE HCL 25 MG ORAL TABLET 1 tablet by mouth tid for hypertension 2013 HYDRALAZINE HCL 58662420716 No Longer Active Robbie Busby MD Active VIIBRYD 40 MG ORAL TABLET take 1 tab po qday for depression. 2014 VILAZODONE HCL 18499750969 No Longer Active Robbie Busby MD Active TERBINAFINE HCL 250 MG ORAL TABLET 1 tab po qday for foot infection TERBINAFINE HCL 52022872814 No Longer Active Robbie Busby MD Active GABAPENTIN 300 MG ORAL CAPSULE 1 po q hs for nerve pain GABAPENTIN 72739388316 Active Robbie Busby MD Active CHERATUSSIN AC 100-10 MG/5ML ORAL SOLUTION 7.5 mL PO q 4-6 hrs PRN cough 2014 GUAIFENESIN-CODEINE 32925375322 No Longer Active Robbie Busby MD Active AZITHROMYCIN 250 MG ORAL TABLET 2 tablets PO today---then, 1 tablet PO daily x 4 more days (and 1 optional refill) AZITHROMYCIN 20586900044 No Longer Active Robbie Busby MD Active NORVASC 10 MG ORAL TABLET 1 tablet by mouth daily AMLODIPINE BESYLATE 66695537475 No Longer Active Alex ALVAREZ Active IMDUR 60 MG ORAL TABLET EXTENDED RELEASE 24 HOUR take 1 tab po qday for blood pressure ISOSORBIDE MONONITRATE 26489113535 Active Robbie Busby MD Active ISOSORBIDE DINITRATE 30 MG ORAL TABLET Take one by mouth daily ISOSORBIDE DINITRATE 03504772003 No Longer Active Robbie Busby MD Active VIIBRYD 40 MG ORAL TABLET 1 TA B PO DAILY VILAZODONE HCL 38506001661 Active Robbie Busby MD Active ZITHROMAX 250 MG ORAL TABLET 2 po today, then 1 po q days 2-5 AZITHROMYCIN 92069651173 No Longer Active Robbie Busby MD Active [id number] 0.3 MG/24HR TRANSDERMAL PATCH WEEKLY apply 2 patches q week for HTN CLONIDINE HCL 49821405187 Active Robbie Busby MD Active DOXAZOSIN MESYLATE 4 MG ORAL TABLET Take one by mouth daily DOXAZOSIN MESYLATE 54346523542 Active Robbie Busby MD Active TOPROL XL 200 MG ORAL TABLET EXTENDED RELEASE 24 HOUR Take one by mouth daily METOPROLOL SUCCINATE 28514077991 Active Robbie Busby MD Active VENLAFAXINE HCL ER 150 MG ORAL TABLET EXTENDED RELEASE 24 HOUR Take one by mouth daily VENLAFAXINE HCL 43921829832 Active Robbie Busby MD Active LIPITOR 40 MG ORAL TABLET Take one by mouth daily ATORVASTATIN CALCIUM 64597784068 Active Robbie Busby MD Active ISOSORBIDE DINITRATE 30 MG ORAL TABLET Take one by mouth daily ISOSORBIDE DINITRATE 30 MG ORAL TABLET 792231 ISOSORBIDE DINITRATE Inactive NORVASC 10 MG ORAL TABLET 1 tablet by mouth daily NORVASC 10 MG ORAL TABLET 754796 AMLODIPINE BESYLATE Inactive AZITHROMYCIN 250 MG ORAL TABLET 2 tablets PO today---then, 1 tablet PO daily x 4 more days (and 1 optional refill) AZITHROMYCIN 250 MG ORAL TABLET 523202 AZITHROMYCIN Inactive CHERATUSSIN AC 100-10 MG/5ML ORAL SOLUTION 7.5 mL PO q 4-6 hrs PRN cough 2014 CHERATUSSIN AC 100-10 MG/5ML ORAL SOLUTION 767258 GUAIFENESIN-CODEINE Inactive VIIBRYD 40 MG ORAL TABLET take 1 tab po qday for depression. 2014 VIIBRYD 40 MG ORAL TABLET VILAZODONE HCL Inactive HYDRALAZINE HCL 25 MG ORAL TABLET 1 tablet by mouth tid for hypertension 2013 HYDRALAZINE HCL 25 MG ORAL TABLET 184602 HYDRALAZINE HCL Inactive SPIRONOLACTONE 50 MG ORAL TABLET 1 tablet by mouth twice a day SPIRONOLACTONE 50 MG ORAL TABLET 712672 SPIRONOLACTONE Inactive FENOFIBRATE 145 MG ORAL TABLET Take one by mouth daily FENOFIBRATE 145 MG ORAL TABLET 822227 FENOFIBRATE Inactive PROTONIX 40 MG INTRAVENOUS SOLUTION RECONSTITUTED 1 po qday for acid reflux PROTONIX 40 MG INTRAVENOUS SOLUTION RECONSTITUTED 811527 PANTOPRAZOLE SODIUM Inactive CEFDINIR 300 MG ORAL CAPSULE Take 1 cap po bid x 10 days CEFDINIR 300 MG ORAL CAPSULE 200514 CEFDINIR Inactive PREDNISONE 20 MG ORAL TABLET 1 tablet twice daily for 2 days, then 1 tablet once daily for 2 days PREDNISONE 20 MG ORAL TABLET 666329 PREDNISONE Inactive NYSTATIN 761530 UNIT/ML MOUTH/THROAT SUSPENSION 5mL po QID x 10 days NYSTATIN 470993 UNIT/ML MOUTH/THROAT SUSPENSION 923051 NYSTATIN Inactive BETADINE 10 % EXTERNAL SOLUTION wash with solution to treat follicultis 07/29 BETADINE 10 % EXTERNAL SOLUTION 2772172 POVIDONE-IODINE Inactive TRILEPTAL 150 MG ORAL TABLET 1 TAB PO Q HS TRILEPTAL 150 MG ORAL TABLET 885166 OXCARBAZEPINE Inactive LAMISIL 125 MG ORAL PACKET 1 TAB PO DAILY LAMISIL 125 MG ORAL PACKET TERBINAFINE HCL Inactive HYDROCHLOROTHIAZIDE TABLET Take one by mouth daily HYDROCHLOROTHIAZIDE TABLET HYDROCHLOROTHIAZIDE TABS Inactive HYDROCODONE-ACETAMINOPHEN 5-325 MG ORAL TABLET 1 tab by mouth BID prn back pain HYDROCODONE-ACETAMINOPHEN 5-325 MG ORAL TABLET 727180 HYDROCODONE-ACETAMINOPHEN Inactive HYDRALAZINE HCL 50 MG ORAL TABLET TWO BY MOUTH THREE TIMES DAILY HYDRALAZINE HCL 50 MG ORAL TABLET 299219 HYDRALAZINE HCL Inactive LEVAQUIN 500 MG ORAL TABLET 1 tablet by mouth daily for 7 days LEVAQUIN 500 MG ORAL TABLET 633259 LEVOFLOXACIN Inactive SPIRONOLACTONE 25 MG ORAL TABLET 4 tablets by mouth daily SPIRONOLACTONE 25 MG ORAL TABLET 914681 SPIRONOLACTONE Inactive MECLIZINE HCL 25 MG ORAL TABLET one 4 times a day as needed for dizziness MECLIZINE HCL 25 MG ORAL TABLET 223781 MECLIZINE HCL Inactive CLONIDINE HCL 0.2 MG ORAL TABLET 1 TAB BY MOUTH EVERY 8 HOURS CLONIDINE HCL 0.2 MG ORAL TABLET 813132 CLONIDINE HCL Inactive CYCLOBENZAPRINE HCL 10 MG ORAL TABLET 1 tablet by mouth three times daily as needed for muscle spasm/pain for 10 days CYCLOBENZAPRINE HCL 10 MG ORAL TABLET 610794 CYCLOBENZAPRINE HCL Inactive VITAMIN D3 84493 UNIT ORAL CAPSULE 2 CAPS PO WEEKLY VITAMIN D3 38103 UNIT ORAL CAPSULE CHOLECALCIFEROL Inactive FIORICET 50-300-40 MG ORAL CAPSULE take 1 tab po qday prn migraines. FIORICET 50-300-40 MG ORAL CAPSULE 907892 BUTALBITAL-APAP- CAFFEINE Inactive FLONASE 50 MCG/ACT NASAL SUSPENSION 1 spray each nostril twice daily for allergies and runny nose FLONASE 50 MCG/ACT NASAL SUSPENSION 3822643 FLUTICASONE PROPIONATE Inactive LORATADINE 10 MG ORAL TABLET 1 tablet by mouth daily for congestion and allergies. LORATADINE 10 MG ORAL TABLET 986207 LORATADINE Inactive NITROSTAT 0.4 MG SUBLINGUAL TABLET SUBLINGUAL PRN NITROSTAT 0.4 MG SUBLINGUAL TABLET SUBLINGUAL 329926 NITROGLYCERIN Inactive GUAIFENESIN ER 600 MG ORAL TABLET EXTENDED RELEASE 12 HOUR 1 tab po q am 2016 GUAIFENESIN ER 600 MG ORAL TABLET EXTENDED RELEASE 12 HOUR GUAIFENESIN Inactive ZITHROMAX 250 MG ORAL TABLET 2 po today, then 1 po q days 2-5 ZITHROMAX 250 MG ORAL TABLET 386568 AZITHROMYCIN Inactive TERBINAFINE HCL 250 MG ORAL TABLET 1 tab po qday for foot infection TERBINAFINE HCL 250 MG ORAL TABLET 716000 TERBINAFINE HCL Inactive KEFLEX 500 MG ORAL CAPSULE 1 po TID x 10 days KEFLEX 500 MG ORAL CAPSULE 372708 CEPHALEXIN Inactive BACTRIM DS 800-160 MG ORAL TABLET 1 tab by mouth twice daily 2015 BACTRIM DS 800-160 MG ORAL TABLET 551431 TRIMETHOPRIM- SULFAMETHOXAZOLE Inactive PREDNISONE 20 MG ORAL TABLET take 3 tabs daily for 3 days, 2 tabs daily for 3 days, 1 tab daily for 3 days, 1/2 tab daily for 4 days PREDNISONE 20 MG ORAL TABLET 304572 PREDNISONE Inactive Advance Directives Directive Description Start [...] AUTO - Chemistry sodium, serum 142 mmol/L 516-494 0690/07/17 carbon dioxide, venous blood 28.2 mmol/L 21.0-32.0 [...] % 11.0-15.0 platelet count 185 THOUSAND/UL 10*3/mm3 007-647 2956/04/14 mean platelet volume 10.9 fL 7.5-12.5 Lab Report: LIPID PANEL, TSH/899, T4, FREE/866 - Chemistry cholesterol, serum 220 mg/dL 961-125 1611/04/14 HDL cholesterol, serum 30 mg/dL > OR=40 [...] 1.80 ng/mL 0.00-4.00 Lab Report: VITAMIN D, 25-HYDROXY/92508 - Chemistry vitamin D 25-hydroxy, serum 25 ng/mL 30-100 Office Visit: Confusion, dizziness after fall - Basic LDL target level 130 mg/dL Office Visit: Confusion, dizziness after fall - Chemistry HDL cholesterol, serum, target level 40 mg/dL triglyceride, target level 150 mg/dL cholesterol, target level 200 mg/dL Encounters Code Encounter Date Provider Facility CPT-08884 Level 3 Est. Patient 15:40:49 CDT Robbie Busby MD [facility] CPT-31001 Level 4 Est. Patient 15:18:19 CDT Robbie Busby MD [facility] CPT-01992 Level 3 Est. Patient 09:00:37 CDT Rober Rodríguez [facility] CPT-84080 Level 3 Est. Patient 16:07:10 CDT Robbie Busby MD [facility] CPT-61703 Level 4 Est. Patient 11:56:16 CDT Erin Garsia [facility] CPT-03651 Level 3 Est. Patient 17:48:02 CDT Robbie Busby MD [facility] CPT-86752 Level 4 Est. Patient 12:00:49 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 Rober Rodríguez [facility] CPT-68536 Level 3 Est. Patient 09:16:37 CDT Robbie Busby MD [facility] CPT-49581 Level 3 Est. Patient 19:38:43 CDT Robbie Busby MD [facility] CPT-34132 Level 3 Est. Patient 11:53:38 CDT Robbie Busby MD [facility] CPT-32340 Level 4 Est. Patient 12:52:22 CDT Rober Rodríguez [facility] CPT-27717 Level 4 Est. Patient 22:55:17 CDT Robbie Busby MD [facility] CPT-46675 Level 3 Est. Patient 12:38:24 CDT Desmond Diaz DO [facility] CPT-92461 Level 4 Est. 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 Patient 14:50:10 CDT Robbie Busby MD [facility] CPT-66306 Level 4 Est. Patient 23:30:43 CDT Robbie Busby MD [facility] CPT-85300 Level 4 Est. Patient 10:30:43 CDT Robbie Busby MD [facility] CPT-44804 Level 3 Est. Patient 17:08:12 CDT Alex ALVAREZ [facility] CPT-52609 Level 4 Est. Patient 17:51:38 CDT Robbie Busby MD [facility] CPT-03566 Level 4 Est. Patient 14:00:21 CDT Robbie Busby MD [facility] CPT-58906 Level 4 Est. Patient 12:46:48 CDT Robbie Busby MD [facility] CPT-58456 Level 4 Est. Patient 13:34:33 CDT Robbie Busby MD [facility] CPT-25262 Level 4 Est. Patient 16:58:28 CDT Robbie Busby MD [facility] CPT-11836 Level 3 Est. Patient 19:36:53 CDT Alex Shaw [facility] CPT-76113 Level 3 Est. Patient 12:58:15 CDT Robbie Busby MD [facility] Procedures Code Procedure Name Date Entry Date Standard Description CPT-J1071 Depo Testosterone 200mg 09:38:36 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 CPT-87165 Abx/Therapy Injection 09:38:36 [employer]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 CPT-J1071 Depo Testosterone 200mg 10:22:56 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 CPT-97984 Abx/Therapy Injection 10:22:56 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 CPT-J1071 Depo Testosterone 200mg 15:40:23 CDT CPT-15494 Abx/Therapy Injection 15:40:23 CDT CPT-J1071 Depo Testosterone 200mg 14:20:43 CDT CPT-41290 Abx/Therapy Injection 14:20:43 CDT CPT-J1071 Depo Testosterone 200mg 14:17:22 CDT CPT-10710 Abx/Therapy Injection 14:17:22 CDT CPT-J1071 Depo Testosterone 200mg 09:03:53 CDT CPT-81028 Abx/Therapy Injection 09:03:53 CDT CPT-G0439 [facility] Annual Wellness Exam 16:47:44 CDT CPT-J1071 Depo Testosterone 200mg 09:06:28 CDT CPT-68983 Abx/Therapy Injection 09:06:28 CDT CPT-J1071 Depo Testosterone 200mg 08:30:01 CDT CPT-42983 Abx/Therapy Injection 08:30:01 CDT CPT-J1071 Depo Testosterone 200mg 08:24:00 CDT CPT-24951 Abx/Therapy Injection 08:24:00 CDT CPT-08355 Venipuncture Draw Fee 14:39:06 CDT CPT-54151 Ribs unilateral 2V - XRAY USE ONLY 12:10:11 CDT CPT-31945 First Vx - Ix admin for Medicare patients 16:32:53 CDT CPT-65919 Boostrix Intramuscular Suspension 5-2.5-18.5 16:32:53 CDT CPT-54084 TB Skin Test 11:42:28 CDT CPT-30861 Tdap 7yrs or > 11:42:28 CDT CPT-J0696 Rocephin 1000 mg (Ceftriaxone) 17:43:43 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 CPT-J1040 Depo Medrol 80 mg (Methyl Prednisolone Acetate) 17:43: 43 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 CPT-J1100 Decadron 8mg (Dexamethasone) 17:43:42 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 CPT-68289 Abx/Therapy Injection 17:43:42 J[employer]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 CPT-04491 Abx/Therapy Injection 17:43:42 JAL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 CPT-J1040 Depo Medrol 80 mg (Methyl Prednisolone Acetate) 09:43: 34 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 CPT-J1100 Decadron 8mg (Dexamethasone) 09:43:34 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 CPT-J0696 Rocephin 1gm Inj Solr 09:43:34 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 CPT-00796 Wound Culture - LAB USE ONLY 14:00:21 CDT CPT-I/D I/D Abscess 09:16:37 CDT CPT-40863 Venipuncture Draw Fee 15:20:23 CDT CPT-31927 Microalbumin - LAB USE ONLY 16:02:19 CDT CPT-84650 CBC - LAB USE ONLY 16:02:19 CDT CPT-60731 Venipuncture Draw Fee 16:02:19 CDT CPT-G0438 Initial Annual Wellness Exam 08:10:28 CDT CPT-71134 Venipuncture Draw Fee 13:07:17 CDT CPT-G0008 Administration of Influenza Virus Vaccine 16:09:59 CDT CPT-89617 Fluzone Quadrivalent Intramuscular Suspension 0.5 ML 16: 09:59 CDT CPT-41022 Spec Collection and Handling Fee 15:05:50 CDT
--- OUTSIDE RECORDS SUMMARY | 2018-04-18 13:03 | XMS REPORT | Clinical Summary ---
Author Author Admin, [employer] Organization [employer] Address Unknown Phone Unavailable Allergies, Adverse Reactions, [...] muscle spasm/pain for 10 days CYCLOBENZAPRINE HCL 47641578966 Active Erin Garsia APRN Active PREDNISONE 20 MG TAB take 3 tabs daily for 3 days, 2 tabs daily for 3 days, 1 tab daily for 3 days, 1/2 tab daily for 4 days PREDNISONE 76292085249 No Longer Active Erin Garsia APRN Active CLONIDINE HCL 0.2 MG ORAL TABS 1 TAB BY MOUTH EVERY 8 HOURS 12/29 CLONIDINE HCL 35299528763 No Longer Active Erin Garsia APRN Active MECLIZINE HCL 25 MG TAB one 4 times a day as needed for dizziness MECLIZINE HCL 05197147448 No Longer Active Erin Garsia APRN Active SPIRONOLACTONE 25 MG TAB 4 tablets by mouth daily SPIRONOLACTONE 31980221074 No Longer Active Erin Garsia APRN Active LEVAQUIN 500 MG TAB 1 tablet by mouth daily for 7 days LEVOFLOXACIN 80342519295 No Longer Active Erin Garsia APRN Active BACTRIM DS 800-160 MG TAB 1 tab by mouth twice daily TRIMETHOPRIM-SULFAMETHOXAZOLE 60098696026 No Longer Active Robbie Busby MD Active HYDRALAZINE HCL 50 MG ORAL TABS TWO BY MOUTH THREE TIMES DAILY HYDRALAZINE HCL 85862399492 No Longer Active Jillina Frazell COMMUNITY EDUCATOR Active HYDROCODONE-ACETAMINOPHEN 5-325 MG TABS 1 tab by mouth BID prn back pain 2013 HYDROCODONE-ACETAMINOPHEN 80909646385 No Longer Active Jillina Frazell COMMUNITY EDUCATOR Active HYDROCHLOROTHIAZIDE TABS Take one by mouth daily HYDROCHLOROTHIAZIDE TABS 74572205759 No Longer Active Jillina Frazell COMMUNITY EDUCATOR Active LAMISIL 125 MG ORAL PACK 1 TAB PO DAILY TERBINAFINE HCL 10954810686 No Longer Active Jillina Frazell COMMUNITY EDUCATOR Active TRILEPTAL 150 MG ORAL TABS 1 TAB PO Q HS OXCARBAZEPINE 18289656781 No Longer Active Jillina Frazell COMMUNITY EDUCATOR Active BETADINE 10 % EXT SOLN wash with solution to treat follicultis POVIDONE-IODINE 05565986237 No Longer Active Jillina Frazell COMMUNITY EDUCATOR Active NYSTATIN 445194 UNIT/ML M/T SUSP 5mL po QID x 10 days NYSTATIN 25072394457 No Longer Active Erin Garsia APRN Active PREDNISONE 20 MG TAB 1 tablet twice daily for 2 days, then 1 tablet once daily for 2 days PREDNISONE 13373752441 No Longer Active Robbie Busby MD Active CEFDINIR 300 MG ORAL CAPS Take 1 cap po bid x 10 days CEFDINIR 12714156665 No Longer Active Robbie Busby MD Active AMLODIPINE BESYLATE 10 MG TABS 1 tablet by mouth daily AMLODIPINE BESYLATE 07866368724 Active Robbie Busby MD Active CARVEDILOL 25 MG TABS 1 & 1/2 TAB po BID CARVEDILOL 25759690821 Active Robbie Busby MD Active VITAMIN D3 90649 UNIT CAPS 2 CAPS PO WEEKLY CHOLECALCIFEROL 81772287645 Active Erin Garsia APRN Active NEXIUM 40 MG CPDR 1 cap by mouth daily ESOMEPRAZOLE MAGNESIUM 53982959554 Active Robbie Busby MD Active PROTONIX 40 MG SOLR 1 po qday for acid reflux PANTOPRAZOLE SODIUM 53546283442 No Longer Active Gali Negro Active KEFLEX 500 MG CAP 1 po TID x 10 days CEPHALEXIN 12714409317 No Longer Active Robbie Busby MD Active FIORICET 50-300-40 MG ORAL CAPS take 1 tab po qday prn migraines. [id number] 84022887687 Active Robbie Busby MD Active TOPIRAMATE 50 MG ORAL TABS take 1 tab po BID for migraines. TOPIRAMATE 61976307471 Active Robbie Busby MD Active TEMAZEPAM 15 MG ORAL CAPS 1 TAB PO Q HS TEMAZEPAM 99706992397 Active Robbie Busby MD Active ALPRAZOLAM 2 MG ORAL TABS 1 TAB PO BID ALPRAZOLAM 06534489623 Active Robbie Busby MD Active FENOFIBRATE 145 MG TABS Take one by mouth daily FENOFIBRATE 60970592724 No Longer Active Robbie Busby MD Active SPIRONOLACTONE 50 MG TABS 1 tablet by mouth twice a day SPIRONOLACTONE 85888364266 No Longer Active Robbie Busby MD Active HYDRALAZINE HCL 25 MG TABS 1 tablet by mouth tid for hypertension HYDRALAZINE HCL 70018162908 No Longer Active Robbie Busby MD Active VIIBRYD 40 MG TABS take 1 tab po qday for depression. VILAZODONE HCL 08513996819 No Longer Active Robbie Busby MD Active TERBINAFINE HCL 250 MG TABS 1 tab po qday for foot infection 2014 TERBINAFINE HCL 58303478960 No Longer Active Robbie Busby MD Active GABAPENTIN 300 MG CAPS 1 po q hs for nerve pain GABAPENTIN 68791213111 Active Robbie Busby MD Active FLONASE 50 MCG/ACT SUSP 1 spray each nostril twice daily for allergies and runny nose FLUTICASONE PROPIONATE 69960513683 Active Robbie Busby MD Active CHERATUSSIN AC 100-10 MG/5ML ORAL SOLN 7.5 mL PO q 4-6 hrs PRN cough GUAIFENESIN-CODEINE 57618417173 No Longer Active Robbie Busby MD Active AZITHROMYCIN 250 MG ORAL TABS 2 tablets PO today---then, 1 tablet PO daily x 4 more days (and 1 optional refill) AZITHROMYCIN 40068773938 No Longer Active Robbie Busby MD Active NORVASC 10 MG TAB 1 tablet by mouth daily AMLODIPINE BESYLATE 40187794618 No Longer Active Alex ALVAREZ Active IMDUR 60 MG TAB CR take 1 tab po qday for blood pressure ISOSORBIDE MONONITRATE Active Robbie Busby MD Active ISOSORBIDE DINITRATE 30 MG TABS Take one by mouth daily ISOSORBIDE DINITRATE 18331010590 No Longer Active Robbie Busby MD Active VIIBRYD 40 MG TABS 1 TA B PO DAILY VILAZODONE HCL 45799013182 Active Robbie Busby MD Active LORATADINE 10 MG TABS 1 tablet by mouth daily for congestion and allergies. LORATADINE 97477192750 Active Robbie Busby MD Active ZITHROMAX 250 MG TAB 2 po today, then 1 po q days 2-5 AZITHROMYCIN 33917549008 No Longer Active Robbie Busby MD Active WTLDIMUH-HUQ-4 0.3 MG/24HR PTWK apply 2 patches q week for HTN CLONIDINE HCL 18320068917 Active Robbie Busby MD Active NITROSTAT 0.4 MG SUBL PRN NITROGLYCERIN 65754444210 Active Robbie Busby MD Active DOXAZOSIN MESYLATE 4 MG TABS Take one by mouth daily DOXAZOSIN MESYLATE 42415121331 Active Erin Garsia COMMUNITY EDUCATOR Active TOPROL XL 200 MG [id number] Take one by mouth daily METOPROLOL SUCCINATE 49265883775 Active Robbie Busby MD Active VENLAFAXINE HCL ER 150 MG [id number] Take one by mouth daily VENLAFAXINE HCL 51947816646 Active Robbie Busby MD Active LIPITOR 40 MG TABS Take one by mouth daily ATORVASTATIN CALCIUM 89872042411 Active Robbie Busby MD Active ISOSORBIDE DINITRATE 30 MG TABS Take one by mouth daily ISOSORBIDE DINITRATE 30 MG TABS 698618 ISOSORBIDE DINITRATE Inactive NORVASC 10 MG TAB 1 tablet by mouth daily NORVASC 10 MG TAB 768313 AMLODIPINE BESYLATE Inactive AZITHROMYCIN 250 MG ORAL TABS 2 tablets PO today---then, 1 tablet PO daily x 4 more days (and 1 optional refill) AZITHROMYCIN 250 MG ORAL TABS 6270487 AZITHROMYCIN Inactive CHERATUSSIN AC 100-10 MG/5ML ORAL SOLN 7.5 mL PO q 4-6 hrs PRN cough CHERATUSSIN AC 100-10 MG/5ML ORAL SOLN 671427 GUAIFENESIN- CODEINE Inactive VIIBRYD 40 MG TABS take 1 tab po qday for depression. VIIBRYD 40 MG TABS VILAZODONE HCL Inactive HYDRALAZINE HCL 25 MG TABS 1 tablet by mouth tid for hypertension HYDRALAZINE HCL 25 MG TABS 969314 HYDRALAZINE HCL Inactive SPIRONOLACTONE 50 MG TABS 1 tablet by mouth twice a day SPIRONOLACTONE 50 MG TABS 277697 SPIRONOLACTONE Inactive FENOFIBRATE 145 MG TABS Take one by mouth daily FENOFIBRATE 145 MG TABS 038045 FENOFIBRATE Inactive PROTONIX 40 MG SOLR 1 po qday for acid reflux PROTONIX 40 MG SOLR 625285 PANTOPRAZOLE SODIUM Inactive CEFDINIR 300 MG ORAL CAPS Take 1 cap po bid x 10 days CEFDINIR 300 MG ORAL CAPS 025234 CEFDINIR Inactive PREDNISONE 20 MG TAB 1 tablet twice daily for 2 days, then 1 tablet once daily for 2 days PREDNISONE 20 MG TAB 486521 PREDNISONE Inactive NYSTATIN 006758 UNIT/ML M/T SUSP 5mL po QID x 10 days NYSTATIN 663988 UNIT/ML M/T SUSP 041362 NYSTATIN Inactive BETADINE 10 % EXT SOLN wash with solution to treat follicultis BETADINE 10 % EXT SOLN 4969485 POVIDONE-IODINE Inactive TRILEPTAL 150 MG ORAL TABS 1 TAB PO Q HS TRILEPTAL 150 MG ORAL TABS 437769 OXCARBAZEPINE Inactive LAMISIL 125 MG ORAL PACK 1 TAB PO DAILY LAMISIL 125 MG ORAL PACK TERBINAFINE HCL Inactive HYDROCHLOROTHIAZIDE TABS Take one by mouth daily HYDROCHLOROTHIAZIDE TABS HYDROCHLOROTHIAZIDE TABS Inactive HYDROCODONE-ACETAMINOPHEN 5-325 MG TABS 1 tab by mouth BID prn back pain 2013 HYDROCODONE-ACETAMINOPHEN 5-325 MG TABS 929369 HYDROCODONE -ACETAMINOPHEN Inactive HYDRALAZINE HCL 50 MG ORAL TABS TWO BY MOUTH THREE TIMES DAILY HYDRALAZINE HCL 50 MG ORAL TABS 623296 HYDRALAZINE HCL Inactive LEVAQUIN 500 MG TAB 1 tablet by mouth daily for 7 days LEVAQUIN 500 MG TAB 530423 LEVOFLOXACIN Inactive SPIRONOLACTONE 25 MG TAB 4 tablets by mouth daily SPIRONOLACTONE 25 MG TAB 734983 SPIRONOLACTONE Inactive MECLIZINE HCL 25 MG TAB one 4 times a day as needed for dizziness MECLIZINE HCL 25 MG TAB 956430 MECLIZINE HCL Inactive CLONIDINE HCL 0.2 MG ORAL TABS 1 TAB BY MOUTH EVERY 8 HOURS 12/29 CLONIDINE HCL 0.2 MG ORAL TABS 915315 CLONIDINE HCL Inactive ZITHROMAX 250 MG TAB 2 po today, then 1 po q days 2-5 ZITHROMAX 250 MG TAB 8518520 AZITHROMYCIN Inactive TERBINAFINE HCL 250 MG TABS 1 tab po qday for foot infection 2014 TERBINAFINE HCL 250 MG TABS 451452 TERBINAFINE HCL Inactive KEFLEX 500 MG CAP 1 po TID x 10 days KEFLEX 500 MG CAP 420956 CEPHALEXIN Inactive BACTRIM DS 800-160 MG TAB 1 tab by mouth twice daily BACTRIM DS 800-160 MG TAB 101938 TRIMETHOPRIM-SULFAMETHOXAZOLE Inactive PREDNISONE 20 MG TAB take 3 tabs daily for 3 days, 2 tabs daily for 3 days, 1 tab daily for 3 days, 1/2 tab daily for 4 days PREDNISONE 20 MG TAB 939715 PREDNISONE Inactive Advance Directives Directive Description Start [...] % 11.0-15.0 platelet count 185 THOUSAND/UL 10*3/mm3 670-417 6042/04/14 mean platelet volume 10.9 fL 7.5-12.5 Lab Report: HEPATITIS B SAB/Immune Status, RUBELLA IGG AB(Immune Status) - Serology rubella antibody, serum, IgG 2.06 Lab Report: LIPID PANEL, TSH/899, T4, FREE/866 - Chemistry cholesterol, serum 220 mg/dL 348-655 2367/04/14 HDL cholesterol, serum 30 mg/dL > OR=40 triglyceride, serum, fasting 466 mg/dL <150 LDL cholesterol, serum SEE NOTE mg/dL (calc) mg/dL <130 cholesterol/HDL ratio, serum 7.3 (calc) < OR=5.0 Lab Report: MICROALB/CREAT W/RATIO - Chemistry albumin/creatinine ratio, urine < 30 mg/g mg/g{creat} 0-29 Lab Report: MICROALB/CREAT W/RATIO - Lab microalbumin, urine 80 0-19 Lab Report: VITAMIN D, 25-HYDROXY/56724 - Chemistry vitamin D 25-hydroxy, serum 23 ng/mL 30-100 Office Visit: Confusion, dizziness after fall - Basic LDL target level 130 mg/dL Office Visit: Confusion, dizziness after fall - Chemistry HDL cholesterol, serum, target level 40 mg/dL triglyceride, target level 150 mg/dL cholesterol, target level 200 mg/dL Encounters Code Encounter Date Provider Facility CPT-86004 Level 4 Est. Patient 11:56:16 CDT Erin Garsia [facility] CPT-24418 Level 3 Est. Patient 17:48:02 CDT Robbie Busby MD [facility] CPT-44358 Level 4 Est. Patient 12:00:49 [employer]READ WE[employer] Rober Rodríguez [facility] CPT-81718 Level 3 Est. Patient 09:16:37 CDT Robbie Busby MD [facility] CPT-26319 Level 3 Est. Patient 19:38:43 CDT Robbie Busby MD [facility] CPT-70785 Level 3 Est. Patient 11:53:38 CDT Robbie Busby MD [facility] CPT-70692 Level 4 Est. Patient 12:52:22 CDT Rober Rodríguez [facility] CPT-74351 Level 4 Est. Patient 22:55:17 CDT Robbie Busby MD [facility] CPT-71319 Level 3 Est. Patient 12:38:24 CDT Desmond Diaz DO [facility] CPT-47068 Level 4 Est. 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 Patient 14:50:10 CDT Robbie Busby MD [facility] CPT-82472 Level 4 Est. Patient 23:30:43 CDT Robbie Busby MD [facility] CPT-94710 Level 4 Est. Patient 10:30:43 CDT Robbie Busby MD [facility] CPT-19058 Level 3 Est. Patient 17:08:[address] [facility] CPT-10678 Level 4 Est. Patient 17:51:38 CDT Robbie Busby MD [facility] CPT-09137 Level 4 Est. Patient 14:00:21 CDT Robbie Busby MD [facility] CPT-35702 Level 4 Est. Patient 12:46:48 CDT Robbie Busby MD [facility] CPT-06266 Level 4 Est. Patient 13:34:33 CDT Robbie Busby MD [facility] CPT-90393 Level 4 Est. Patient 16:58:28 CDT Robbie Busby MD [facility] CPT-20157 Level 3 Est. Patient 19:36:[address] [facility] CPT-95531 Level 3 Est. Patient 12:58:15 CDT Robbie Busby MD [facility] Procedures Code Procedure Name Date Entry Date Standard Description CPT-J0696 Rocephin 1000 mg (Ceftriaxone) 17:43:43 THREAD WEAVER CPT-J1040 Depo Medrol 80 mg (Methyl Prednisolone Acetate) 17:43: 43 THREAD WEAVER CPT-J1100 Decadron 8mg (Dexamethasone) 17:43:42 THREAD WEAVER CPT-96408 Abx/Therapy Injection 17:43:42 THREAD WEAVER CPT-05656 Abx/Therapy Injection 17:43:42 THREAD WEAVER CPT-J1040 Depo Medrol 80 mg (Methyl Prednisolone Acetate) 09:43: 34 THREAD WEAVER CPT-J1100 Decadron 8mg (Dexamethasone) 09:43:34 THREAD WEAVER CPT-J0696 Rocephin 1gm Inj Solr 09:43:34 [employer]READ WE[employer]ER CPT-39277 Wound Culture - LAB USE ONLY 14:00:21 CDT CPT-I/D I/D Abscess 09:16:37 CDT CPT-96358 Venipuncture Draw Fee 15:20:23 CDT CPT-50814 Microalbumin - LAB USE ONLY 16:02:19 CDT CPT-86220 CBC - LAB USE ONLY 16:02:19 CDT CPT-62885 Venipuncture Draw Fee 16:02:19 CDT CPT-G0438 Initial Annual Wellness Exam 08:10:28 CDT CPT-64221 Venipuncture Draw Fee 13:07:17 CDT CPT-G0008 Administration of Influenza Virus Vaccine 16:09:59 CDT CPT-73277 Fluzone Quadrivalent Intramuscular Suspension 0.5 ML 16: 09:59 CDT CPT-36402 Spec Collection and Handling Fee 15:05:50 CDT
--- OUTSIDE RECORDS SUMMARY | 2018-04-18 13:04 | XMS REPORT | Clinical Summary ---
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 Desmond Diaz DO Other malignant secondary hypertension Tachycardia 785.0 Active Rober Rodríguez [employer] PROJECT COORDINATION SPECIALIST Tachycardia, unspecified Insect bite, infected 919.5 Resolved Desmond Diaz DO Insect bite, nonvenomous, of other, multiple, and unspecified sites, infected Abscess, skin 682.9 Resolved Desmond Diaz DO Cellulitis and abscess of unspecified sites URI 465.9 Resolved Desmond Diaz DO Acute upper respiratory infections of unspecified site Hypertension 401.9 Active Rober Rodríguez [employer] PRO[employer] COORDINATION SPECIALIST Unspecified essential hypertension Sinusitis - acute 461.9 [...] Hypogonadism, low testosterone 257.2 Active Erin Mai [employer] PRO[employer] COORDINATION SPECIALIST Other testicular hypofunction Low back pain, chronic [...] pain, acute ICD-724.2 Inactive Emily Atwood DIRECTOR OF ONLINE MERCHANDISING Low back pain, chronic ICD-724.2 Inactive Emily Atwood DIRECTOR OF ONLINE MERCHANDISING Bronchitis, acute ICD-466.0 Inactive Emily Atwood DIRECTOR OF ONLINE MERCHANDISING Onychomycosis, toenails ICD-110.1 Inactive Emily Atwood DIRECTOR OF ONLINE MERCHANDISING Dizziness ICD-780.4 Inactive Emily Atwood DIRECTOR OF ONLINE MERCHANDISING 2017 Folliculitis ICD-704.8 Inactive Emily Atwood DIRECTOR OF ONLINE MERCHANDISING Pharyngitis-Acute ICD-462 Inactive Emily Atwood DIRECTOR OF ONLINE MERCHANDISING Fatigue ICD-780.79 Inactive Emily Atwood DIRECTOR OF ONLINE MERCHANDISING 09/20 Hypertension, secondary, malignant ICD-405.09 Inactive Emily Atwood DIRECTOR OF ONLINE MERCHANDISING Insect bite, infected ICD-919.5 Inactive Emily Atwood DIRECTOR OF ONLINE MERCHANDISING Abscess, skin ICD-682.9 Inactive Emily Atwood DIRECTOR OF ONLINE MERCHANDISING URI ICD-465.9 Inactive Emily Atwood DIRECTOR OF ONLINE MERCHANDISING Sinusitis - acute ICD-461.9 Inactive Emily Atwood DIRECTOR OF ONLINE MERCHANDISING Acute confusion ICD-293.0 Inactive Emily Atwood DIRECTOR OF ONLINE MERCHANDISING Headache ICD-784.0 Inactive Emily Atwood DIRECTOR OF ONLINE MERCHANDISING 09/20 Back pain ICD-724.5 Inactive Emily Solisnae CISSE 2017 Sinusitis ICD-461.9 Inactive Emily Atwood DIRECTOR OF ONLINE MERCHANDISING 2017 Rib pain, right sided ICD-786.50 Inactive Emily Rai LOPEZN Myalgias ICD-729.1 Inactive Emily Atwoodnae LOPEZN 09/20 URI ICD-465.9 Inactive Emily Atwoodnae LOPEZN Bronchitis-Acute ICD-466.0 Inactive Desmond Diaz DO Medication List Medication Instructions Start Date Stop Date Generic Name NDC Status Provider Patient Instruction IMDUR 60 MG ORAL TABLET EXTENDED RELEASE 24 HOUR 1 po q day ISOSORBIDE MONONITRATE 11512437970 Active Emma Hernandez Active METOPROLOL SUCCINATE ER 200 MG ORAL TABLET EXTENDED RELEASE 24 HOUR take 1 tab po qday for high blood pressure and rapid pulse METOPROLOL SUCCINATE 34544358067 Active Robbie Busby MD Active [id number] 0.3 MG/24HR TRANSDERMAL PATCH WEEKLY apply 2 patches q week for HTN CLONIDINE HCL 82738024657 No Longer Active Robbie Busby MD Active IMDUR 60 MG ORAL TABLET EXTENDED RELEASE 24 HOUR take 1 tab po qday for blood pressure ISOSORBIDE MONONITRATE 93734891844 No Longer Active Robbie Busby MD Active TEMAZEPAM 15 MG ORAL CAPSULE 1 TAB PO Q HS TEMAZEPAM 76045157797 No Longer Active Robbie Busby MD Active TOPIRAMATE 50 MG ORAL TABLET 1 po BID for migraines TOPIRAMATE 87571448222 No Longer Active Robbie Busby MD Active CYCLOBENZAPRINE HCL 10 MG ORAL TABLET 1 tablet by mouth three times daily as needed for muscle spasm/pain CYCLOBENZAPRINE HCL 08577718745 No Longer Active Robbie Busby MD Active TOPROL XL 200 MG ORAL TABLET EXTENDED RELEASE 24 HOUR Take one by mouth daily METOPROLOL SUCCINATE 58427498349 No Longer Active Robbie Busby MD Active METFORMIN HCL 500 MG ORAL TABLET 1 tablet by mouth daily for diabetes type 2 METFORMIN HCL 81594599564 Active Robbie Busby MD Active SINGULAIR 10 MG ORAL TABLET 1 po qday for allergies. MONTELUKAST SODIUM 03486804083 No Longer Active Robbie Busby MD Active PREDNISONE 20 MG ORAL TABLET two tabs by mouth today, then one tab by mouth days two and three PREDNISONE 30331594533 No Longer Active Robbie Busby MD Active AZITHROMYCIN 250 MG ORAL TABLET 2 po qd x 1 day, then 1 po qd x 4 days 09/20 AZITHROMYCIN 64852572998 No Longer Active Desmond Diaz DO Active TOPIRAMATE 50 MG ORAL TABLET take 1 tab po BID for migraines. TOPIRAMATE 85962510064 No Longer Active Desmond Diaz DO Active CYCLOBENZAPRINE HCL 10 MG ORAL TABLET 1 po TID PRN muscle spasm/pain for 10 days CYCLOBENZAPRINE HCL 69152446376 No Longer Active Desmond Diaz DO Active GUAIFENESIN ER 600 MG ORAL TABLET EXTENDED RELEASE 12 HOUR 1 tab po q am 2016 GUAIFENESIN 94465388643 No Longer Active Robbie Busby MD Active DIVALPROEX SODIUM ER 500 MG ORAL TABLET EXTENDED RELEASE 24 HOUR Once daily DIVALPROEX SODIUM 58582563847 Active Robbie Busby MD Active DEPO-TESTOSTERONE 200 MG/ML INTRAMUSCULAR SOLUTION 1 IM Injections every 2 weeks for low testosterone TESTOSTERONE CYPIONATE 32765783947 Active Zulema Blank LPN Active FLUTICASONE PROPIONATE 50 MCG/ACT NASAL SUSPENSION 2 sprays per nostril bid for 1 week, then 1 spray bid FLUTICASONE PROPIONATE 13583982385 Active Rober Rodríguez APRN Active HYDRALAZINE HCL 25 MG ORAL TABLET Take 1 tab BID. HYDRALAZINE HCL 73125794438 Active Rober Rodríguez APRN Active VITAMIN D3 62148 UNIT ORAL TABLET 2 po weekly CHOLECALCIFEROL 66381135006 Active Robbie Busby MD Active OXYCODONE HCL ER 10 MG ORAL TABLET ER 12 HOUR ABUSE-DETERRENT 1 tab po 3 times qd. OXYCODONE HCL 68921164040 Active Robbie Busby MD Active NITROSTAT 0.4 MG SUBLINGUAL TABLET SUBLINGUAL PRN NITROGLYCERIN 23450084005 No Longer Active Robbie Busby MD Active LORATADINE 10 MG ORAL TABLET 1 tablet by mouth daily for congestion and allergies. LORATADINE 05408222300 No Longer Active Robbie Busby MD Active FLONASE 50 MCG/ACT NASAL SUSPENSION 1 spray each nostril twice daily for allergies and runny nose FLUTICASONE PROPIONATE 23261172462 No Longer Active Robbie Busby MD Active FIORICET 50-300-40 MG ORAL CAPSULE take 1 tab po qday prn migraines. [id number] 15194734054 No Longer Active Robbie Busby MD Active VITAMIN D3 46873 UNIT ORAL CAPSULE 2 CAPS PO WEEKLY CHOLECALCIFEROL 22830970406 No Longer Active Robbie Busby MD Active CYCLOBENZAPRINE HCL 10 MG ORAL TABLET 1 tablet by mouth three times daily as needed for muscle spasm/pain for 10 days CYCLOBENZAPRINE HCL 03827564931 No Longer Active Robbie Busby MD Active PREDNISONE 20 MG ORAL TABLET take 3 tabs daily for 3 days, 2 tabs daily for 3 days, 1 tab daily for 3 days, 1/2 tab daily for 4 days PREDNISONE 55509029664 No Longer Active Erin Mai APRN Active CLONIDINE HCL 0.2 MG ORAL TABLET 1 TAB BY MOUTH EVERY 8 HOURS CLONIDINE HCL 36913245788 No Longer Active Erin Mai APRN Active MECLIZINE HCL 25 MG ORAL TABLET one 4 times a day as needed for dizziness MECLIZINE HCL 44982703663 No Longer Active Erin Mai APRN Active SPIRONOLACTONE 25 MG ORAL TABLET 4 tablets by mouth daily SPIRONOLACTONE 67360108887 No Longer Active Erin Riverall [employer] PROJECT COORDINATION SPECIALIST Active LEVAQUIN 500 MG ORAL TABLET 1 tablet by mouth daily for 7 days LEVOFLOXACIN 65105882988 No Longer Active Erin Mai [employer]AR PROJECT COORDINATION SPECIALIST Active BACTRIM DS 800-160 MG ORAL TABLET 1 tab by mouth twice daily 2015 TRIMETHOPRIM-SULFAMETHOXAZOLE 64766063511 No Longer Active Robbie Busby MD Active HYDRALAZINE HCL 50 MG ORAL TABLET TWO BY MOUTH THREE TIMES DAILY HYDRALAZINE HCL 23052627236 No Longer Active Andrellina Frazell SOLAR PROJECT COORDINATION SPECIALIST Active HYDROCODONE-ACETAMINOPHEN 5-325 MG ORAL TABLET 1 tab by mouth BID prn back pain HYDROCODONE-ACETAMINOPHEN 13475122317 No Longer Active Jillina Frazell SOLAR PROJECT COORDINATION SPECIALIST Active HYDROCHLOROTHIAZIDE TABLET Take one by mouth daily HYDROCHLOROTHIAZIDE TABS 60987998296 No Longer Active Jillina Frazell SOLAR PROJECT COORDINATION SPECIALIST Active LAMISIL 125 MG ORAL PACKET 1 TAB PO DAILY TERBINAFINE HCL 24070996709 No Longer Active Jillina Frazell SOLAR PROJECT COORDINATION SPECIALIST Active TRILEPTAL 150 MG ORAL TABLET 1 TAB PO Q HS OXCARBAZEPINE 63577111427 No Longer Active Jillina Frazell SOLAR PROJECT COORDINATION SPECIALIST Active BETADINE 10 % EXTERNAL SOLUTION wash with solution to treat follicultis 07/29 POVIDONE-IODINE 30667770391 No Longer Active Jillina Frazell [employer]AR PROJECT COORDINATION SPECIALIST Active NYSTATIN 436752 UNIT/ML MOUTH/THROAT SUSPENSION 5mL po QID x 10 days NYSTATIN 94902727832 No Longer Active Erin Mai SOLAR PROJECT COORDINATION SPECIALIST Active PREDNISONE 20 MG ORAL TABLET 1 tablet twice daily for 2 days, then 1 tablet once daily for 2 days PREDNISONE 91744878281 No Longer Active Robbei Busby MD Active CEFDINIR 300 MG ORAL CAPSULE Take 1 cap po bid x 10 days CEFDINIR 83918712924 No Longer Active Robbie Busby MD Active AMLODIPINE BESYLATE 10 MG ORAL TABLET 1 tablet by mouth daily AMLODIPINE BESYLATE 20460784683 Active Robbie Busby MD Active CARVEDILOL 25 MG ORAL TABLET 1 & 1/2 TAB po BID CARVEDILOL 68145691968 Active Robbie Busby MD Active NEXIUM 40 MG ORAL CAPSULE DELAYED RELEASE 1 cap by mouth daily ESOMEPRAZOLE MAGNESIUM 44944188741 Active Robbie Busby MD Active PROTONIX 40 MG INTRAVENOUS SOLUTION RECONSTITUTED 1 po qday for acid reflux PANTOPRAZOLE SODIUM 31754122128 No Longer Active Galileonila Negro Active KEFLEX 500 MG ORAL CAPSULE 1 po TID x 10 days CEPHALEXIN 63034741321 No Longer Active Robbie Busby MD Active ALPRAZOLAM 2 MG ORAL TABLET 1 TAB PO BID ALPRAZOLAM 81688828627 Active Robbie Busby MD Active FENOFIBRATE 145 MG ORAL TABLET Take one by mouth daily FENOFIBRATE 73120432889 No Longer Active Robbie Busby MD Active SPIRONOLACTONE 50 MG ORAL TABLET 1 tablet by mouth twice a day SPIRONOLACTONE 25226929910 No Longer Active Robbie Busby MD Active HYDRALAZINE HCL 25 MG ORAL TABLET 1 tablet by mouth tid for hypertension 2013 HYDRALAZINE HCL 84114179252 No Longer Active Robbie Busby MD Active VIIBRYD 40 MG ORAL TABLET take 1 tab po qday for depression. 2014 VILAZODONE HCL 49073342681 No Longer Active Robbie Busby MD Active TERBINAFINE HCL 250 MG ORAL TABLET 1 tab po qday for foot infection TERBINAFINE HCL 48898054437 No Longer Active Robbie Busby MD Active GABAPENTIN 300 MG ORAL CAPSULE 1 po q hs for nerve pain GABAPENTIN 54958987607 Active Robbie Busby MD Active CHERATUSSIN AC 100-10 MG/5ML ORAL SOLUTION 7.5 mL PO q 4-6 hrs PRN cough 2014 GUAIFENESIN-CODEINE 24287039178 No Longer Active Robbie Busby MD Active AZITHROMYCIN 250 MG ORAL TABLET 2 tablets PO today---then, 1 tablet PO daily x 4 more days (and 1 optional refill) AZITHROMYCIN 08762427944 No Longer Active Robbie Busby MD Active NORVASC 10 MG ORAL TABLET 1 tablet by mouth daily AMLODIPINE BESYLATE 81289763042 No Longer Active Alex ALVAREZ Active ISOSORBIDE DINITRATE 30 MG ORAL TABLET Take one by mouth daily ISOSORBIDE DINITRATE 19522110253 No Longer Active Robbie Busby MD Active VIIBRYD 40 MG ORAL TABLET 1 TA B PO DAILY VILAZODONE HCL 66533365196 Active Robbie Busby MD Active ZITHROMAX 250 MG ORAL TABLET 2 po today, then 1 po q days 2-5 AZITHROMYCIN 42729346794 No Longer Active Robbie Busby MD Active DOXAZOSIN MESYLATE 4 MG ORAL TABLET Take one by mouth daily DOXAZOSIN MESYLATE 74566034144 Active Robbie Busby MD Active VENLAFAXINE HCL ER 150 MG ORAL TABLET EXTENDED RELEASE 24 HOUR Take one by mouth daily VENLAFAXINE HCL 80178793096 Active Robbie Busby MD Active LIPITOR 40 MG ORAL TABLET Take one by mouth daily ATORVASTATIN CALCIUM 23851274385 Active Robbie Busby MD Active ISOSORBIDE DINITRATE 30 MG ORAL TABLET Take one by mouth daily ISOSORBIDE DINITRATE 30 MG ORAL TABLET 265565 ISOSORBIDE DINITRATE Inactive NORVASC 10 MG ORAL TABLET 1 tablet by mouth daily NORVASC 10 MG ORAL TABLET 139954 AMLODIPINE BESYLATE Inactive AZITHROMYCIN 250 MG ORAL TABLET 2 tablets PO today---then, 1 tablet PO daily x 4 more days (and 1 optional refill) AZITHROMYCIN 250 MG ORAL TABLET 279058 AZITHROMYCIN Inactive CHERATUSSIN AC 100-10 MG/5ML ORAL SOLUTION 7.5 mL PO q 4-6 hrs PRN cough 2014 CHERATUSSIN AC 100-10 MG/5ML ORAL SOLUTION 396191 GUAIFENESIN-CODEINE Inactive VIIBRYD 40 MG ORAL TABLET take 1 tab po qday for depression. 2014 VIIBRYD 40 MG ORAL TABLET VILAZODONE HCL Inactive HYDRALAZINE HCL 25 MG ORAL TABLET 1 tablet by mouth tid for hypertension 2013 HYDRALAZINE HCL 25 MG ORAL TABLET 643980 HYDRALAZINE HCL Inactive SPIRONOLACTONE 50 MG ORAL TABLET 1 tablet by mouth twice a day SPIRONOLACTONE 50 MG ORAL TABLET 346461 SPIRONOLACTONE Inactive FENOFIBRATE 145 MG ORAL TABLET Take one by mouth daily FENOFIBRATE 145 MG ORAL TABLET 679950 FENOFIBRATE Inactive PROTONIX 40 MG INTRAVENOUS SOLUTION RECONSTITUTED 1 po qday for acid reflux PROTONIX 40 MG INTRAVENOUS SOLUTION RECONSTITUTED 460430 PANTOPRAZOLE SODIUM Inactive CEFDINIR 300 MG ORAL CAPSULE Take 1 cap po bid x 10 days CEFDINIR 300 MG ORAL CAPSULE 161497 CEFDINIR Inactive PREDNISONE 20 MG ORAL TABLET 1 tablet twice daily for 2 days, then 1 tablet once daily for 2 days PREDNISONE 20 MG ORAL TABLET 182113 PREDNISONE Inactive NYSTATIN 920321 UNIT/ML MOUTH/THROAT SUSPENSION 5mL po QID x 10 days NYSTATIN 163590 UNIT/ML MOUTH/THROAT SUSPENSION 887652 NYSTATIN Inactive BETADINE 10 % EXTERNAL SOLUTION wash with solution to treat follicultis 07/29 BETADINE 10 % EXTERNAL SOLUTION 3591734 POVIDONE-IODINE Inactive TRILEPTAL 150 MG ORAL TABLET 1 TAB PO Q HS TRILEPTAL 150 MG ORAL TABLET 507616 OXCARBAZEPINE Inactive LAMISIL 125 MG ORAL PACKET 1 TAB PO DAILY LAMISIL 125 MG ORAL PACKET TERBINAFINE HCL Inactive HYDROCHLOROTHIAZIDE TABLET Take one by mouth daily HYDROCHLOROTHIAZIDE TABLET HYDROCHLOROTHIAZIDE TABS Inactive HYDROCODONE-ACETAMINOPHEN 5-325 MG ORAL TABLET 1 tab by mouth BID prn back pain HYDROCODONE-ACETAMINOPHEN 5-325 MG ORAL TABLET 302938 HYDROCODONE-ACETAMINOPHEN Inactive HYDRALAZINE HCL 50 MG ORAL TABLET TWO BY MOUTH THREE TIMES DAILY HYDRALAZINE HCL 50 MG ORAL TABLET 702087 HYDRALAZINE HCL Inactive LEVAQUIN 500 MG ORAL TABLET 1 tablet by mouth daily for 7 days LEVAQUIN 500 MG ORAL TABLET 578520 LEVOFLOXACIN Inactive SPIRONOLACTONE 25 MG ORAL TABLET 4 tablets by mouth daily SPIRONOLACTONE 25 MG ORAL TABLET 573705 SPIRONOLACTONE Inactive MECLIZINE HCL 25 MG ORAL TABLET one 4 times a day as needed for dizziness MECLIZINE HCL 25 MG ORAL TABLET 484264 MECLIZINE HCL Inactive CLONIDINE HCL 0.2 MG ORAL TABLET 1 TAB BY MOUTH EVERY 8 HOURS CLONIDINE HCL 0.2 MG ORAL TABLET 666546 CLONIDINE HCL Inactive CYCLOBENZAPRINE HCL 10 MG ORAL TABLET 1 tablet by mouth three times daily as needed for muscle spasm/pain for 10 days CYCLOBENZAPRINE HCL 10 MG ORAL TABLET 909866 CYCLOBENZAPRINE HCL Inactive VITAMIN D3 49208 UNIT ORAL CAPSULE 2 CAPS PO WEEKLY VITAMIN D3 64706 UNIT ORAL CAPSULE CHOLECALCIFEROL Inactive FIORICET 50-300-40 MG ORAL CAPSULE take 1 tab po qday prn migraines. FIORICET 50-300-40 MG ORAL CAPSULE 254553 BUTALBITAL-APAP- CAFFEINE Inactive FLONASE 50 MCG/ACT NASAL SUSPENSION 1 spray each nostril twice daily for allergies and runny nose FLONASE 50 MCG/ACT NASAL SUSPENSION 5839064 FLUTICASONE PROPIONATE Inactive LORATADINE 10 MG ORAL TABLET 1 tablet by mouth daily for congestion and allergies. LORATADINE 10 MG ORAL TABLET 289824 LORATADINE Inactive NITROSTAT 0.4 MG SUBLINGUAL TABLET SUBLINGUAL PRN NITROSTAT 0.4 MG SUBLINGUAL TABLET SUBLINGUAL 500809 NITROGLYCERIN Inactive GUAIFENESIN ER 600 MG ORAL TABLET EXTENDED RELEASE 12 HOUR 1 tab po q am 2016 GUAIFENESIN ER 600 MG ORAL TABLET EXTENDED RELEASE 12 HOUR GUAIFENESIN Inactive CYCLOBENZAPRINE HCL 10 MG ORAL TABLET 1 po TID PRN muscle spasm/pain for 10 days CYCLOBENZAPRINE HCL 10 MG ORAL TABLET 760105 CYCLOBENZAPRINE HCL Inactive TOPIRAMATE 50 MG ORAL TABLET take 1 tab po BID for migraines. TOPIRAMATE 50 MG ORAL TABLET 034110 TOPIRAMATE Inactive PREDNISONE 20 MG ORAL TABLET two tabs by mouth today, then one tab by mouth days two and three PREDNISONE 20 MG ORAL TABLET 054313 PREDNISONE Inactive TOPROL XL 200 MG ORAL TABLET EXTENDED RELEASE 24 HOUR Take one by mouth daily TOPROL XL 200 MG ORAL TABLET EXTENDED RELEASE 24 HOUR METOPROLOL SUCCINATE Inactive CYCLOBENZAPRINE HCL 10 MG ORAL TABLET 1 tablet by mouth three times daily as needed for muscle spasm/pain CYCLOBENZAPRINE HCL 10 MG ORAL TABLET 751307 CYCLOBENZAPRINE HCL Inactive TOPIRAMATE 50 MG ORAL TABLET 1 po BID for migraines TOPIRAMATE 50 MG ORAL TABLET 890008 TOPIRAMATE Inactive TEMAZEPAM 15 MG ORAL CAPSULE 1 TAB PO Q HS TEMAZEPAM 15 MG ORAL CAPSULE 378098 TEMAZEPAM Inactive IMDUR 60 MG ORAL TABLET EXTENDED RELEASE 24 HOUR take 1 tab po qday for blood pressure IMDUR 60 MG ORAL TABLET EXTENDED RELEASE 24 HOUR ISOSORBIDE MONONITRATE Inactive [id number] 0.3 MG/24HR TRANSDERMAL PATCH WEEKLY apply 2 patches q week for HTN [id number]-KPX-1 0.3 MG/24HR TRANSDERMAL PATCH WEEKLY 884874 CLONIDINE HCL Inactive ZITHROMAX 250 MG ORAL TABLET 2 po today, then 1 po q days 2-5 ZITHROMAX 250 MG ORAL TABLET 443915 AZITHROMYCIN Inactive TERBINAFINE HCL 250 MG ORAL TABLET 1 tab po qday for foot infection TERBINAFINE HCL 250 MG ORAL TABLET 751517 TERBINAFINE HCL Inactive KEFLEX 500 MG ORAL CAPSULE 1 po TID x 10 days KEFLEX 500 MG ORAL CAPSULE 614029 CEPHALEXIN Inactive BACTRIM DS 800-160 MG ORAL TABLET 1 tab by mouth twice daily 2015 BACTRIM DS 800-160 MG ORAL TABLET 302715 TRIMETHOPRIM- SULFAMETHOXAZOLE Inactive PREDNISONE 20 MG ORAL TABLET take 3 tabs daily for 3 days, 2 tabs daily for 3 days, 1 tab daily for 3 days, 1/2 tab daily for 4 days PREDNISONE 20 MG ORAL TABLET 347568 PREDNISONE Inactive AZITHROMYCIN 250 MG ORAL TABLET 2 po qd x 1 day, then 1 po qd x 4 days 09/20 AZITHROMYCIN 250 MG ORAL TABLET 156455 AZITHROMYCIN Inactive SINGULAIR 10 MG ORAL TABLET 1 po qday for allergies. SINGULAIR 10 MG ORAL TABLET 851520 MONTELUKAST SODIUM Inactive Advance Directives Directive Description [...] AUTO - Chemistry sodium, serum 142 mmol/L 378-434 0805/07/17 carbon dioxide, venous blood 28.2 mmol/L 21.0-32.0 [...] % 11.0-15.0 platelet count 185 THOUSAND/UL 10*3/mm3 589-877 3416/04/14 mean platelet volume 10.9 fL 7.5-12.5 Lab Report: Comp. Metabolic Panel - Chemistry sodium, serum 141 mmol/L 570-733 7089/02/13 carbon dioxide, venous blood 23.9 mmol/L 21.0-32.0 [...] 6.9 % 4.3-6.0 sodium, serum 139 mmol/L 936-702 9923/01/04 potassium, serum 3.9 mmol/L 3.5-5.2 chloride, serum 103 mmol/L 98-107 carbon dioxide, venous blood 26.9 mmol/L 21.0-32.0 blood glucose 106 mg/dL 65-110 calcium, serum 9.0 mg/dL 8.5-10.1 urea nitrogen, blood 20 mg/dL 7-18 creatinine, serum 1.46 mg/dL 0.60-1.30 Lab Report: LIPID PANEL, TSH/899, T4, FREE/866 - Chemistry cholesterol, serum 220 mg/dL 823-072 9121/04/14 HDL cholesterol, serum 30 mg/dL > OR=40 [...] 1.80 ng/mL 0.00-4.00 Lab Report: VITAMIN D, 25-HYDROXY/27304 - Chemistry vitamin D 25-hydroxy, serum 25 ng/mL 30-100 Office Visit: Confusion, dizziness after fall - Basic LDL target level 130 mg/dL Office Visit: Confusion, dizziness after fall - Chemistry HDL cholesterol, serum, target level 40 mg/dL triglyceride, target level 150 mg/dL cholesterol, target level 200 mg/dL Encounters Code Encounter Date Provider Facility CPT-70656 Level 4 Est. Patient 09:50:01 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 Robbie Busby MD [facility] CPT-35370 Level 4 Est. Patient 09:42:08 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 Robbie Busby MD [facility] CPT-09729 Level 4 Est. Patient 13:07:39 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 Robbie Busby MD [facility] CPT-73456 Level 4 Est. Patient 15:23:44 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 Desmond Diaz DO [facility] CPT-12211 Level 3 Est. Patient 15:40:49 CDT Robbie Busby MD [facility] CPT-10925 Level 4 Est. Patient 15:18:19 CDT Robbie Busby MD [facility] CPT-11787 Level 3 Est. Patient 09:00:37 CDT Rober Rodríguez [facility] CPT-66062 Level 3 Est. Patient 16:07:10 CDT Robbie Busby MD [facility] CPT-59941 Level 4 Est. Patient 11:56:16 CDT Erin Mai [facility] CPT-38841 Level 3 Est. Patient 17:48:02 CDT Robbie Busby MD [facility] CPT-97242 Level 4 Est. Patient 12:00:49 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 Rober Rodríguez [facility] CPT-86396 Level 3 Est. Patient 09:16:37 CDT Robbie Busby MD [facility]-84134 Level 3 Est. Patient 19:38:43 CDT Robbie Busby MD [facility] CPT-07674 Level 3 Est. Patient 11:53:38 CDT Robbie Busby MD [facility] CPT-60602 Level 4 Est. Patient 12:52:22 CDT Rober Rodríguez [facility] CPT-24265 Level 4 Est. Patient 22:55:17 CDT Robbie Busby MD [facility]-68749 Level 3 Est. Patient 12:38:24 CDT Desmond Diaz DO [facility] CPT-52784 Level 4 Est. Patient 11:25:03 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 Robbie Busby MD [facility] CPT-80724 Level 4 Est. Patient 14:50:10 CDT Robbie Busby MD [facility] CPT-53478 Level 4 Est. Patient 23:30:43 CDT Robbie Busby MD [facility] CPT-52307 Level 4 Est. Patient 10:30:43 CDT Robbie Busby MD [facility] CPT-77737 Level 3 Est. Patient 17:08:12 CDT Alex ALVAREZ [facility] CPT-17092 Level 4 Est. Patient 17:51:38 CDT Robbie Busby MD [facility] CPT-96308 Level 4 Est. Patient 14:00:21 CDT Robbie Busby MD [facility] CPT-13977 Level 4 Est. Patient 12:46:48 CDT Robbie Busby MD [facility] CPT-57725 Level 4 Est. Patient 13:34:33 CDT Robbie Busby MD [facility] CPT-60697 Level 4 Est. Patient 16:58:28 CDT Robbie Busby MD [facility] CPT-86742 Level 3 Est. Patient 19:36:53 CDT Alex ALVAREZ [facility] CPT-17174 Level 3 Est. Patient 12:58:15 CDT Robbie Busby MD [facility] Procedures Code Procedure Name Date Entry Date Standard Description CPT-J1071 Depo Testosterone 200mg 08:56:46 CDT CPT-67426 Abx/Therapy Injection 08:56:45 CDT CPT-J1071 Depo Testosterone 200mg 08:26:27 CDT CPT-69188 Abx/Therapy Injection 08:26:27 CDT CPT-J1071 Depo Testosterone 200mg 10:27:10 CDT CPT-49041 Abx/Therapy Injection 10:27:10 CDT CPT-J1071 Depo Testosterone 200mg 16:10:29 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 CPT-11080 Abx/Therapy Injection 16:10:29 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 CPT-J1071 Depo Testosterone 200mg 16:13:47 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 CPT-56290 Abx/Therapy Injection 16:13:46 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 CPT-J1071 Depo Testosterone 200mg 15:33:58 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 CPT-66366 Abx/Therapy Injection 15:33:58 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 CPT-J1071 Depo Testosterone 200mg 09:38:36 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 CPT-74243 Abx/Therapy Injection 09:38:36 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 CPT-J1071 Depo Testosterone 200mg 10:22:56 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 CPT-05422 Abx/Therapy Injection 10:22:56 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 CPT-J1071 Depo Testosterone 200mg 15:40:23 CDT CPT-33781 Abx/Therapy Injection 15:40:23 CDT CPT-J1071 Depo Testosterone 200mg 14:20:43 CDT CPT-16791 Abx/Therapy Injection 14:20:43 CDT CPT-J1071 Depo Testosterone 200mg 14:17:22 CDT CPT-23139 Abx/Therapy Injection 14:17:22 CDT CPT-J1071 Depo Testosterone 200mg 09:03:53 CDT CPT-36398 Abx/Therapy Injection 09:03:53 CDT CPT-G0439 [facility] Annual Wellness Exam 16:47:44 CDT CPT-J1071 Depo Testosterone 200mg 09:06:28 CDT CPT-93807 Abx/Therapy Injection 09:06:28 CDT CPT-J1071 Depo Testosterone 200mg 08:30:01 CDT CPT-07469 Abx/Therapy Injection 08:30:01 CDT CPT-J1071 Depo Testosterone 200mg 08:24:00 CDT CPT-55759 Abx/Therapy Injection 08:24:00 CDT CPT-15617 Venipuncture Draw Fee 14:39:06 CDT CPT-59921 Ribs unilateral 2V - XRAY USE ONLY 12:10:11 CDT CPT-37156 First Vx - Ix admin for Medicare patients 16:32:53 CDT CPT-35432 Boostrix Intramuscular Suspension 5-2.5-18.5 16:32:53 CDT CPT-77850 TB Skin Test 11:42:28 CDT CPT-76187 Tdap 7yrs or > 11:42:28 CDT CPT-J0696 Rocephin 1000 mg (Ceftriaxone) 17:43:43 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 CPT-J1040 Depo Medrol 80 mg (Methyl Prednisolone Acetate) 17:43: 43 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 CPT-J1100 Decadron 8mg (Dexamethasone) 17:43:42 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 CPT-64140 Abx/Therapy Injection 17:43:42 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 CPT-75085 Abx/Therapy Injection 17:43:42 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 CPT-J1040 Depo Medrol 80 mg (Methyl Prednisolone Acetate) 09:43: 34 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 CPT-J1100 Decadron 8mg (Dexamethasone) 09:43:34 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 CPT-J0696 Rocephin 1gm Inj Solr 09:43:34 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 CPT-40804 Wound Culture - LAB USE ONLY 14:00:21 CDT CPT-I/D I/D Abscess 09:16:37 CDT CPT-14481 Venipuncture Draw Fee 15:20:23 CDT CPT-83913 Microalbumin - LAB USE ONLY 16:02:19 CDT CPT-79899 CBC - LAB USE ONLY 16:02:19 CDT CPT-24368 Venipuncture Draw Fee 16:02:19 CDT CPT-G0438 Initial Annual Wellness Exam 08:10:28 CDT CPT-50179 Venipuncture Draw Fee 13:07:17 CDT CPT-G0008 Administration of Influenza Virus Vaccine 16:09:59 CDT CPT-76887 Fluzone Quadrivalent Intramuscular Suspension 0.5 ML 16: 09:59 CDT CPT-00882 Spec Collection and Handling Fee 15:05:50 CDT
--- OUTSIDE RECORDS SUMMARY | 2018-04-18 13:06 | XMS REPORT | Clinical Summary ---
Author Author Admin, AKUA Organization [employer] Address Unknown Phone Unavailable Allergies, Adverse [...] 2 weeks for low testosterone TESTOSTERONE CYPIONATE 59927995369 Active Zulema Blank LPN Active CYCLOBENZAPRINE HCL 10 MG ORAL TABS 1 po TID PRN muscle spasm/pain for 10 days CYCLOBENZAPRINE HCL 45726233431 Active JONATHAN Moncada Active GUAIFENESIN 600 MG [id number] 1 tab po q am GUAIFENESIN 26878017995 Active Rober Rodríguez FLAT LOCK MACHINE OPERATOR Active FLUTICASONE PROPIONATE 50 MCG/ACT SUSP 2 sprays per nostril bid for 1 week, then 1 spray bid FLUTICASONE PROPIONATE 85373952695 Active Jillina Frazelariana GONZALEZN Active HYDRALAZINE HCL 25 MG ORAL TABS Take 1 tab BID. HYDRALAZINE HCL 07314892549 Active Jillina Anne GONZALEZN Active VITAMIN D3 30791 UNIT ORAL TABS 2 po weekly CHOLECALCIFEROL 71478568818 Active Robbie Busby MD Active OXYCODONE HCL ER 10 MG ORAL T12A 1 tab po 3 times qd. OXYCODONE HCL 60924346657 Active Robbie Busby MD Active NITROSTAT 0.4 MG SUBL PRN NITROGLYCERIN 59664685949 No Longer Active Robbie Busby MD Active LORATADINE 10 MG TABS 1 tablet by mouth daily for congestion and allergies. LORATADINE 97788398203 No Longer Active Robbie Busby MD Active FLONASE 50 MCG/ACT SUSP 1 spray each nostril twice daily for allergies and runny nose FLUTICASONE PROPIONATE 81746489243 No Longer Active Robbie Busby MD Active FIORICET 50-300-40 MG ORAL CAPS take 1 tab po qday prn migraines. [id number] 82838140640 No Longer Active Robbie Busby MD Active VITAMIN D3 06570 UNIT CAPS 2 CAPS PO WEEKLY CHOLECALCIFEROL 59085264142 No Longer Active Robbie Busby MD Active CYCLOBENZAPRINE HCL 10 MG TABS 1 tablet by mouth three times daily as needed for muscle spasm/pain for 10 days CYCLOBENZAPRINE HCL 37464568103 No Longer Active Robbie Busby MD Active PREDNISONE 20 MG TAB take 3 tabs daily for 3 days, 2 tabs daily for 3 days, 1 tab daily for 3 days, 1/2 tab daily for 4 days PREDNISONE 55396477334 No Longer Active Erin Garsia APRN Active CLONIDINE HCL 0.2 MG ORAL TABS 1 TAB BY MOUTH EVERY 8 HOURS 12/29 CLONIDINE HCL 80986722077 No Longer Active Erin Garsia APRN Active MECLIZINE HCL 25 MG TAB one 4 times a day as needed for dizziness MECLIZINE HCL 05707866122 No Longer Active Erin Garsia APRN Active SPIRONOLACTONE 25 MG TAB 4 tablets by mouth daily SPIRONOLACTONE 62467560259 No Longer Active Erin Garsia APRN Active LEVAQUIN 500 MG TAB 1 tablet by mouth daily for 7 days LEVOFLOXACIN 68892946611 No Longer Active Erin Garsia APRN Active BACTRIM DS 800-160 MG TAB 1 tab by mouth twice daily TRIMETHOPRIM-SULFAMETHOXAZOLE 97774442616 No Longer Active Robbie Busby MD Active HYDRALAZINE HCL 50 MG ORAL TABS TWO BY MOUTH THREE TIMES DAILY HYDRALAZINE HCL 28705196721 No Longer Active Jillina Frazell FLAT LOCK MACHINE OPERATOR Active HYDROCODONE-ACETAMINOPHEN 5-325 MG TABS 1 tab by mouth BID prn back pain 2013 HYDROCODONE-ACETAMINOPHEN 86926167615 No Longer Active Jillina Frazell FLAT LOCK MACHINE OPERATOR Active HYDROCHLOROTHIAZIDE TABS Take one by mouth daily HYDROCHLOROTHIAZIDE TABS 63723462788 No Longer Active Jillina Frazell FLAT LOCK MACHINE OPERATOR Active LAMISIL 125 MG ORAL PACK 1 TAB PO DAILY TERBINAFINE HCL 04411659941 No Longer Active Jillina Frazell FLAT LOCK MACHINE OPERATOR Active TRILEPTAL 150 MG ORAL TABS 1 TAB PO Q HS OXCARBAZEPINE 46970820187 No Longer Active Jillina Frazell FLAT LOCK MACHINE OPERATOR Active BETADINE 10 % EXT SOLN wash with solution to treat follicultis POVIDONE-IODINE 99252405908 No Longer Active Jillina Frazell FLAT LOCK MACHINE OPERATOR Active NYSTATIN 069316 UNIT/ML M/T SUSP 5mL po QID x 10 days NYSTATIN 12150407837 No Longer Active Erin Ady FLAT LOCK MACHINE OPERATOR Active PREDNISONE 20 MG TAB 1 tablet twice daily for 2 days, then 1 tablet once daily for 2 days PREDNISONE 67600241464 No Longer Active Robbie Busby MD Active CEFDINIR 300 MG ORAL CAPS Take 1 cap po bid x 10 days CEFDINIR 22353029426 No Longer Active Robbie Busby MD Active AMLODIPINE BESYLATE 10 MG TABS 1 tablet by mouth daily AMLODIPINE BESYLATE 78039795796 Active Robbie Busby MD Active CARVEDILOL 25 MG TABS 1 & 1/2 TAB po BID CARVEDILOL 05290983224 Active Robbie Busby MD Active NEXIUM 40 MG CPDR 1 cap by mouth daily ESOMEPRAZOLE MAGNESIUM 79062863294 Active Robbie Busby MD Active PROTONIX 40 MG SOLR 1 po qday for acid reflux PANTOPRAZOLE SODIUM 99725202986 No Longer Active Gali Raida Active KEFLEX 500 MG CAP 1 po TID x 10 days CEPHALEXIN 75495594089 No Longer Active Robbie Busby MD Active TOPIRAMATE 50 MG ORAL TABS take 1 tab po BID for migraines. TOPIRAMATE 37902217354 Active Robbie Busby MD Active TEMAZEPAM 15 MG ORAL CAPS 1 TAB PO Q HS TEMAZEPAM 60564231852 Active Robbie Busby MD Active ALPRAZOLAM 2 MG ORAL TABS 1 TAB PO BID ALPRAZOLAM 52315306462 Active Robbie Busby MD Active FENOFIBRATE 145 MG TABS Take one by mouth daily FENOFIBRATE 36221127646 No Longer Active Robbie Busby MD Active SPIRONOLACTONE 50 MG TABS 1 tablet by mouth twice a day SPIRONOLACTONE 11631282264 No Longer Active Robbie Busby MD Active HYDRALAZINE HCL 25 MG TABS 1 tablet by mouth tid for hypertension HYDRALAZINE HCL 55217525552 No Longer Active Robbie Busby MD Active VIIBRYD 40 MG TABS take 1 tab po qday for depression. VILAZODONE HCL 54704745604 No Longer Active Robbie Busby MD Active TERBINAFINE HCL 250 MG TABS 1 tab po qday for foot infection 2014 TERBINAFINE HCL 95282563632 No Longer Active Robbie Busby MD Active GABAPENTIN 300 MG CAPS 1 po q hs for nerve pain GABAPENTIN 22885015377 Active Robbie Busby MD Active CHERATUSSIN AC 100-10 MG/5ML ORAL SOLN 7.5 mL PO q 4-6 hrs PRN cough GUAIFENESIN-CODEINE 35243824015 No Longer Active Robbie Busby MD Active AZITHROMYCIN 250 MG ORAL TABS 2 tablets PO today---then, 1 tablet PO daily x 4 more days (and 1 optional refill) AZITHROMYCIN 28369735976 No Longer Active Robbie Busby MD Active NORVASC 10 MG TAB 1 tablet by mouth daily AMLODIPINE BESYLATE 23431433322 No Longer Active Alex ALVAREZ Active IMDUR 60 MG TAB CR take 1 tab po qday for blood pressure ISOSORBIDE MONONITRATE Active Robbie Busby MD Active ISOSORBIDE DINITRATE 30 MG TABS Take one by mouth daily ISOSORBIDE DINITRATE 84462216294 No Longer Active Robbie Busby MD Active VIIBRYD 40 MG TABS 1 TA B PO DAILY VILAZODONE HCL 92789539659 Active Robbie Busby MD Active ZITHROMAX 250 MG TAB 2 po today, then 1 po q days 2-5 AZITHROMYCIN 65403692733 No Longer Active Robbie Busby MD Active [id number]-[id number]-9 0.3 MG/24HR PTWK apply 2 patches q week for HTN CLONIDINE HCL 58755725865 Active Robbie Busby MD Active DOXAZOSIN MESYLATE 4 MG TABS Take one by mouth daily DOXAZOSIN MESYLATE 52746046917 Active Robbie Busby MD Active TOPROL XL 200 MG [id number] Take one by mouth daily METOPROLOL SUCCINATE 65826349937 Active Robbie Busby MD Active VENLAFAXINE HCL ER 150 MG [id number] Take one by mouth daily VENLAFAXINE HCL 96960658975 Active Robbie Busby MD Active LIPITOR 40 MG TABS Take one by mouth daily ATORVASTATIN CALCIUM 36283514993 Active Robbie Busby MD Active ISOSORBIDE DINITRATE 30 MG TABS Take one by mouth daily ISOSORBIDE DINITRATE 30 MG TABS 117280 ISOSORBIDE DINITRATE Inactive NORVASC 10 MG TAB 1 tablet by mouth daily NORVASC 10 MG TAB 012037 AMLODIPINE BESYLATE Inactive AZITHROMYCIN 250 MG ORAL TABS 2 tablets PO today---then, 1 tablet PO daily x 4 more days (and 1 optional refill) AZITHROMYCIN 250 MG ORAL TABS 0793554 AZITHROMYCIN Inactive CHERATUSSIN AC 100-10 MG/5ML ORAL SOLN 7.5 mL PO q 4-6 hrs PRN cough CHERATUSSIN AC 100-10 MG/5ML ORAL SOLN 143412 GUAIFENESIN- CODEINE Inactive VIIBRYD 40 MG TABS take 1 tab po qday for depression. VIIBRYD 40 MG TABS VILAZODONE HCL Inactive HYDRALAZINE HCL 25 MG TABS 1 tablet by mouth tid for hypertension HYDRALAZINE HCL 25 MG TABS 496760 HYDRALAZINE HCL Inactive SPIRONOLACTONE 50 MG TABS 1 tablet by mouth twice a day SPIRONOLACTONE 50 MG TABS 674542 SPIRONOLACTONE Inactive FENOFIBRATE 145 MG TABS Take one by mouth daily FENOFIBRATE 145 MG TABS 243382 FENOFIBRATE Inactive PROTONIX 40 MG SOLR 1 po qday for acid reflux PROTONIX 40 MG SOLR 169715 PANTOPRAZOLE SODIUM Inactive CEFDINIR 300 MG ORAL CAPS Take 1 cap po bid x 10 days CEFDINIR 300 MG ORAL CAPS 018928 CEFDINIR Inactive PREDNISONE 20 MG TAB 1 tablet twice daily for 2 days, then 1 tablet once daily for 2 days PREDNISONE 20 MG TAB 109829 PREDNISONE Inactive NYSTATIN 138574 UNIT/ML M/T SUSP 5mL po QID x 10 days NYSTATIN 375035 UNIT/ML M/T SUSP 811687 NYSTATIN Inactive BETADINE 10 % EXT SOLN wash with solution to treat follicultis BETADINE 10 % EXT SOLN 2413324 POVIDONE-IODINE Inactive TRILEPTAL 150 MG ORAL TABS 1 TAB PO Q HS TRILEPTAL 150 MG ORAL TABS 658321 OXCARBAZEPINE Inactive LAMISIL 125 MG ORAL PACK 1 TAB PO DAILY LAMISIL 125 MG ORAL PACK TERBINAFINE HCL Inactive HYDROCHLOROTHIAZIDE TABS Take one by mouth daily HYDROCHLOROTHIAZIDE TABS HYDROCHLOROTHIAZIDE TABS Inactive HYDROCODONE-ACETAMINOPHEN 5-325 MG TABS 1 tab by mouth BID prn back pain 2013 HYDROCODONE-ACETAMINOPHEN 5-325 MG TABS 830049 HYDROCODONE -ACETAMINOPHEN Inactive HYDRALAZINE HCL 50 MG ORAL TABS TWO BY MOUTH THREE TIMES DAILY HYDRALAZINE HCL 50 MG ORAL TABS 728014 HYDRALAZINE HCL Inactive LEVAQUIN 500 MG TAB 1 tablet by mouth daily for 7 days LEVAQUIN 500 MG TAB 716757 LEVOFLOXACIN Inactive SPIRONOLACTONE 25 MG TAB 4 tablets by mouth daily SPIRONOLACTONE 25 MG TAB 458132 SPIRONOLACTONE Inactive MECLIZINE HCL 25 MG TAB one 4 times a day as needed for dizziness MECLIZINE HCL 25 MG TAB 550855 MECLIZINE HCL Inactive CLONIDINE HCL 0.2 MG ORAL TABS 1 TAB BY MOUTH EVERY 8 HOURS 12/29 CLONIDINE HCL 0.2 MG ORAL TABS 393149 CLONIDINE HCL Inactive CYCLOBENZAPRINE HCL 10 MG TABS 1 tablet by mouth three times daily as needed for muscle spasm/pain for 10 days CYCLOBENZAPRINE HCL 10 MG TABS 787664 CYCLOBENZAPRINE HCL Inactive VITAMIN D3 84010 UNIT CAPS 2 CAPS PO WEEKLY VITAMIN D3 09090 UNIT CAPS CHOLECALCIFEROL Inactive FIORICET 50-300-40 MG ORAL CAPS take 1 tab po qday prn migraines. FIORICET 50-300-40 MG ORAL CAPS 521488 [id number] Inactive FLONASE 50 MCG/ACT SUSP 1 spray each nostril twice daily for allergies and runny nose FLONASE 50 MCG/ACT SUSP 5452597 FLUTICASONE PROPIONATE Inactive LORATADINE 10 MG TABS 1 tablet by mouth daily for congestion and allergies. LORATADINE 10 MG TABS 091387 LORATADINE Inactive NITROSTAT 0.4 MG SUBL PRN NITROSTAT 0.4 MG SUBL 546598 NITROGLYCERIN Inactive ZITHROMAX 250 MG TAB 2 po today, then 1 po q days 2-5 ZITHROMAX 250 MG TAB 0940663 AZITHROMYCIN Inactive TERBINAFINE HCL 250 MG TABS 1 tab po qday for foot infection 2014 TERBINAFINE HCL 250 MG TABS 767829 TERBINAFINE HCL Inactive KEFLEX 500 MG CAP 1 po TID x 10 days KEFLEX 500 MG CAP 120550 CEPHALEXIN Inactive BACTRIM DS 800-160 MG TAB 1 tab by mouth twice daily BACTRIM DS 800-160 MG TAB 407518 TRIMETHOPRIM-SULFAMETHOXAZOLE Inactive PREDNISONE 20 MG TAB take 3 tabs daily for 3 days, 2 tabs daily for 3 days, 1 tab daily for 3 days, 1/2 tab daily for 4 days PREDNISONE 20 MG TAB 949182 PREDNISONE Inactive Advance Directives Directive Description Start [...] AUTO - Chemistry sodium, serum 142 mmol/L 508-456 7705/07/17 carbon dioxide, venous blood 28.2 mmol/L 21.0-32.0 [...] leukocyte count, blood 10.1 THOUSAND/UL 10*3/mm3 3.8-10.8 hematocrit, blood 42.0 % 38.5-50.0 mean corpuscular volume, RBC 90.5 fL 80.0-100.0 mean corpuscular hemoglobin, RBC 29.9 pg 27.0-33.0 mean corpuscular hemoglobin concentration, RBC 33.1 G/DL % 32.0- 36.0 red blood cell distribution width 15.8 % 11.0-15.0 platelet count 185 THOUSAND/UL 10*3/mm3 127-984 5492/04/14 mean platelet volume 10.9 fL 7.5-12.5 Lab Report: LIPID PANEL, TSH/899, T4, FREE/866 - Chemistry cholesterol, serum 220 mg/dL 127-032 8511/04/14 HDL cholesterol, serum 30 mg/dL > OR=40 [...] 1.80 ng/mL 0.00-4.00 Lab Report: VITAMIN D, 25-HYDROXY/65496 - Chemistry vitamin D 25-hydroxy, serum 25 ng/mL 30-100 Office Visit: Confusion, dizziness after fall - Basic LDL target level 130 mg/dL Office Visit: Confusion, dizziness after fall - Chemistry HDL cholesterol, serum, target level 40 mg/dL triglyceride, target level 150 mg/dL cholesterol, target level 200 mg/dL Encounters Code Encounter Date Provider Facility CPT-54782 Level 4 Est. Patient 15:18:19 CDT Robbie Busby MD [facility] CPT-03509 Level 3 Est. Patient 09:00:37 CDT Rober Rodríguez [facility] [place] CPT-99240 Level 3 Est. Patient 16:07:10 CDT Robbie Busby MD [facility] CPT-78837 Level 4 Est. Patient 11:56:16 CDT Erin Garsia [facility] [place] CPT-21166 Level 3 Est. Patient 17:48:02 CDT Robbie Busby MD [facility] CPT-17509 Level 4 Est. Patient 12:00:49 PLASTIC WELDING MACHINE OPERATOR Rober Rodríguez [facility] [place] CPT-07856 Level 3 Est. Patient 09:16:37 CDT Robbie Busby MD [facility] CPT-62631 Level 3 Est. Patient 19:38:43 CDT Robbie Busby MD [facility] CPT-11076 Level 3 Est. Patient 11:53:38 CDT Robbie Busby MD [facility] CPT-50988 Level 4 Est. Patient 12:52:22 CDT Rober Rodríguez [facility] [place] CPT-57364 Level 4 Est. Patient 22:55:17 CDT Robbie Busby MD [facility] CPT-39018 Level 3 Est. Patient 12:38:24 CDT Desmond Diaz DO [facility] CPT-29463 Level 4 Est. Patient 11:25:03 PLASTIC WELDING MACHINE OPERATOR Robbie Busby MD [facility] CPT-38739 Level 4 Est. Patient 14:50:10 CDT Robbie Busby MD [facility] CPT-77595 Level 4 Est. Patient 23:30:43 CDT Robbie Busby MD [facility] CPT-18521 Level 4 Est. Patient 10:30:43 CDT Robbie Busby MD [facility] CPT-58648 Level 3 Est. Patient 17:08:12 CDT Alex Shaw [facility] CPT-84301 Level 4 Est. Patient 17:51:38 CDT Robbie Busby MD [facility] CPT-14923 Level 4 Est. Patient 14:00:21 CDT Robbie Busby MD [facility] CPT-59919 Level 4 Est. Patient 12:46:48 CDT Robbie Busby MD [facility] CPT-64499 Level 4 Est. Patient 13:34:33 CDT Robbie Busby MD [facility] CPT-88481 Level 4 Est. Patient 16:58:28 CDT Robbie Busby MD [facility] CPT-69240 Level 3 Est. Patient 19:36:53 CDT Alex Shaw [facility] CPT-07956 Level 3 Est. Patient 12:58:15 CDT Robbie Busby MD [facility] Procedures Code Procedure Name Date Entry Date Standard Description CPT-J1071 Depo Testosterone 200mg 09:06:28 CDT CPT-34948 Abx/Therapy Injection 09:06:28 CDT CPT-J1071 Depo Testosterone 200mg 08:30:01 CDT CPT-41071 Abx/Therapy Injection 08:30:01 CDT CPT-J1071 Depo Testosterone 200mg 08:24:00 CDT CPT-82924 Abx/Therapy Injection 08:24:00 CDT CPT-67063 Venipuncture Draw Fee 14:39:06 CDT CPT-78550 Ribs unilateral 2V - XRAY USE ONLY 12:10:11 CDT CPT-30447 First Vx - Ix admin for Medicare patients 16:32:53 CDT CPT-66367 Boostrix Intramuscular Suspension 5-2.5-18.5 16:32:53 CDT CPT-93417 TB Skin Test 11:42:28 CDT CPT-53500 Tdap 7yrs or > 11:42:28 CDT CPT-J0696 Rocephin 1000 mg (Ceftriaxone) 17:43:43 PLASTIC WELDING MACHINE OPERATOR CPT-J1040 Depo Medrol 80 mg (Methyl Prednisolone Acetate) 17:43: 43 PLASTIC WELDING MACHINE OPERATOR CPT-J1100 Decadron 8mg (Dexamethasone) 17:43:42 PLASTIC WELDING MACHINE OPERATOR CPT-23617 Abx/Therapy Injection 17:43:42 PLASTIC WELDING MACHINE OPERATOR CPT-53368 Abx/Therapy Injection 17:43:42 PLASTIC WELDING MACHINE OPERATOR CPT-J1040 Depo Medrol 80 mg (Methyl Prednisolone Acetate) 09:43: 34 PLASTIC WELDING MACHINE OPERATOR CPT-J1100 Decadron 8mg (Dexamethasone) 09:43:34 PLASTIC WELDING MACHINE OPERATOR CPT-J0696 Rocephin 1gm Inj Solr 09:43:34 PLASTIC WELDING MACHINE OPERATOR CPT-84261 Wound Culture - LAB USE ONLY 14:00:21 CDT CPT-I/D I/D Abscess 09:16:37 CDT CPT-31665 Venipuncture Draw Fee 15:20:23 CDT CPT-64593 Microalbumin - LAB USE ONLY 16:02:19 CDT CPT-81858 CBC - LAB USE ONLY 16:02:19 CDT CPT-79507 Venipuncture Draw Fee 16:02:19 CDT CPT-G0438 Initial Annual Wellness Exam 08:10:28 CDT CPT-96003 Venipuncture Draw Fee 13:07:17 CDT CPT-G0008 Administration of Influenza Virus Vaccine 16:09:59 CDT CPT-27071 Fluzone Quadrivalent Intramuscular Suspension 0.5 ML 16: 09:59 CDT CPT-05687 Spec Collection and Handling Fee 15:05:50 CDT
--- OUTSIDE RECORDS SUMMARY | 2018-04-18 13:07 | XMS REPORT | Clinical Summary ---
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 Desmond Diaz DO Other malignant secondary hypertension Tachycardia 785.0 Active Rober Rodríguez MARINA MANAGER Tachycardia, unspecified Insect bite, infected 919.5 Resolved Desmond Diaz DO Insect bite, nonvenomous, of other, multiple, and unspecified sites, infected Abscess, skin 682.9 Resolved Desmond Diaz DO Cellulitis and abscess of unspecified sites URI 465.9 Resolved Desmond Diaz DO Acute upper respiratory infections of unspecified site Hypertension 401.9 Active Rober Rodríguez MARINA MANAGER Unspecified essential hypertension Sinusitis - acute 461.9 [...] Hypogonadism, low testosterone 257.2 Active Erin Mai MARINA MANAGER Other testicular hypofunction Low back pain, chronic [...] unspecified site Sinusitis ICD-461.9 Inactive Emily Atwood [employer]NC MANUFACTURING ENGINEER 2017 Low back pain, acute ICD-724.2 Inactive Emily Atwood [employer]NC MANUFACTURING ENGINEER Low back pain, chronic ICD-724.2 Inactive Emily Atwood CNC MANUFACTURING ENGINEER Bronchitis, acute ICD-466.0 Inactive Emily Atwood [employer]NC MANUFACTURING ENGINEER Onychomycosis, toenails ICD-110.1 Inactive Emily Atwood CNC MANUFACTURING ENGINEER Dizziness ICD-780.4 Inactive Emily Atwood [employer]NC MANUFACTURING ENGINEER 2017 Folliculitis ICD-704.8 Inactive Emily Atwood CNC MANUFACTURING ENGINEER Pharyngitis-Acute ICD-462 Inactive Emily Atwood CNC MANUFACTURING ENGINEER Fatigue ICD-780.79 Inactive Emily Atwood CNC MANUFACTURING ENGINEER 09/20 Hypertension, secondary, malignant ICD-405.09 Inactive Emily Atwood CNC MANUFACTURING ENGINEER Insect bite, infected ICD-919.5 Inactive Emily Atwood CNC MANUFACTURING ENGINEER Abscess, skin ICD-682.9 Inactive Emily Atwood CNC MANUFACTURING ENGINEER URI ICD-465.9 Inactive Emily Atwood CNC MANUFACTURING ENGINEER Sinusitis - acute ICD-461.9 Inactive Emily Atwood CNC MANUFACTURING ENGINEER Acute confusion ICD-293.0 Inactive Emily Atwood [employer]NC MANUFACTURING ENGINEER Headache ICD-784.0 Inactive Emily Atwood CNC MANUFACTURING ENGINEER 09/20 Back pain ICD-724.5 Inactive Emily Atwood [employer]NC MANUFACTURING ENGINEER 2017 Rib pain, right sided ICD-786.50 Inactive Emily Atwood [employer]NC MANUFACTURING ENGINEER Myalgias ICD-729.1 Inactive Emily Atwood CNC MANUFACTURING ENGINEER 09/20 URI ICD-465.9 Inactive Emily Atwood CNC MANUFACTURING ENGINEER Bronchitis-Acute ICD-466.0 Inactive Desmond Diaz DO Medication List Medication Instructions Start Date Stop Date Generic Name NDC Status Provider Patient Instruction PREDNISONE 20 MG ORAL TABLET 2 po qd x 5 days PREDNISONE 56219268597 Active Renny Bella MD Active PROMETHAZINE-CODEINE 6.25-10 MG/5ML ORAL SYRUP 5ml po q6hr PRN Cough PROMETHAZINE-CODEINE 81729811836 Active Renny Bella MD Active MONTELUKAST SODIUM 10 MG ORAL TABLET 1 tab po daily for allergies MONTELUKAST SODIUM 96461887630 Active JONATHAN Moncada Active IMDUR 60 MG ORAL TABLET EXTENDED RELEASE 24 HOUR 1 po q day ISOSORBIDE MONONITRATE 49723872632 Active Emma Hernandez Active METOPROLOL SUCCINATE ER 200 MG ORAL TABLET EXTENDED RELEASE 24 HOUR take 1 tab po qday for high blood pressure and rapid pulse METOPROLOL SUCCINATE 43075481107 Active Robbie Busby MD Active CUWFBEWO-YPL-8 0.3 MG/24HR TRANSDERMAL PATCH WEEKLY apply 2 patches q week for HTN CLONIDINE HCL 39834496871 No Longer Active Robbie Busby MD Active IMDUR 60 MG ORAL TABLET EXTENDED RELEASE 24 HOUR take 1 tab po qday for blood pressure ISOSORBIDE MONONITRATE 90709301359 No Longer Active Robbie Busby MD Active TEMAZEPAM 15 MG ORAL CAPSULE 1 TAB PO Q HS TEMAZEPAM 13270343136 No Longer Active Robbie Busby MD Active TOPIRAMATE 50 MG ORAL TABLET 1 po BID for migraines TOPIRAMATE 08597698359 No Longer Active Robbie Busby MD Active CYCLOBENZAPRINE HCL 10 MG ORAL TABLET 1 tablet by mouth three times daily as needed for muscle spasm/pain CYCLOBENZAPRINE HCL 27976567024 No Longer Active Robbie Busby MD Active TOPROL XL 200 MG ORAL TABLET EXTENDED RELEASE 24 HOUR Take one by mouth daily METOPROLOL SUCCINATE 73704043558 No Longer Active Robbie Busby MD Active METFORMIN HCL 500 MG ORAL TABLET 1 tablet by mouth daily for diabetes type 2 METFORMIN HCL 56712309669 Active Robbie Busby MD Active SINGULAIR 10 MG ORAL TABLET 1 po qday for allergies. MONTELUKAST SODIUM 43862670492 No Longer Active Robbie Busby MD Active PREDNISONE 20 MG ORAL TABLET two tabs by mouth today, then one tab by mouth days two and three PREDNISONE 63159138530 No Longer Active Robbie Busby MD Active AZITHROMYCIN 250 MG ORAL TABLET 2 po qd x 1 day, then 1 po qd x 4 days 09/20 AZITHROMYCIN 06246260108 No Longer Active Desmond Diaz DO Active TOPIRAMATE 50 MG ORAL TABLET take 1 tab po BID for migraines. TOPIRAMATE 27926475694 No Longer Active Desmond Diaz DO Active CYCLOBENZAPRINE HCL 10 MG ORAL TABLET 1 po TID PRN muscle spasm/pain for 10 days CYCLOBENZAPRINE HCL 98666680270 No Longer Active Desmond Diaz DO Active GUAIFENESIN ER 600 MG ORAL TABLET EXTENDED RELEASE 12 HOUR 1 tab po q am 2016 GUAIFENESIN 59000892967 No Longer Active Robbie Busby MD Active DIVALPROEX SODIUM ER 500 MG ORAL TABLET EXTENDED RELEASE 24 HOUR Once daily DIVALPROEX SODIUM 80630596658 Active Robbie Busby MD Active DEPO-TESTOSTERONE 200 MG/ML INTRAMUSCULAR SOLUTION 1 IM Injections every 2 weeks for low testosterone TESTOSTERONE CYPIONATE 62944593194 Active Zulema Blank LPN Active FLUTICASONE PROPIONATE 50 MCG/ACT NASAL SUSPENSION 2 sprays per nostril bid for 1 week, then 1 spray bid FLUTICASONE PROPIONATE 10256252196 Active Jishantel Rodríguez APRN Active HYDRALAZINE HCL 25 MG ORAL TABLET Take 1 tab BID. HYDRALAZINE HCL 47686611305 Active Jillina Franeha ARGUELLO Active VITAMIN D3 13163 UNIT ORAL TABLET 2 po weekly CHOLECALCIFEROL 20662594871 Active Robbie Busby MD Active OXYCODONE HCL ER 10 MG ORAL TABLET ER 12 HOUR ABUSE-DETERRENT 1 tab po 3 times qd. OXYCODONE HCL 06450283782 Active Robbie Busby MD Active NITROSTAT 0.4 MG SUBLINGUAL TABLET SUBLINGUAL PRN NITROGLYCERIN 30536006463 No Longer Active Robbie Busby MD Active LORATADINE 10 MG ORAL TABLET 1 tablet by mouth daily for congestion and allergies. LORATADINE 03179621508 No Longer Active Robbie Busby MD Active FLONASE 50 MCG/ACT NASAL SUSPENSION 1 spray each nostril twice daily for allergies and runny nose FLUTICASONE PROPIONATE 61577723691 No Longer Active Robbie Busby MD Active FIORICET 50-300-40 MG ORAL CAPSULE take 1 tab po qday prn migraines. [id number]-QTMS-EVBLGEED 95794968424 No Longer Active Robbie Busby MD Active VITAMIN D3 78337 UNIT ORAL CAPSULE 2 CAPS PO WEEKLY CHOLECALCIFEROL 74792237313 No Longer Active Robbie Busby MD Active CYCLOBENZAPRINE HCL 10 MG ORAL TABLET 1 tablet by mouth three times daily as needed for muscle spasm/pain for 10 days CYCLOBENZAPRINE HCL 45642870589 No Longer Active Robbie Busby MD Active PREDNISONE 20 MG ORAL TABLET take 3 tabs daily for 3 days, 2 tabs daily for 3 days, 1 tab daily for 3 days, 1/2 tab daily for 4 days PREDNISONE 62404905812 No Longer Active Erin Arezane GONZALEZN Active CLONIDINE HCL 0.2 MG ORAL TABLET 1 TAB BY MOUTH EVERY 8 HOURS CLONIDINE HCL 76032746608 No Longer Active Erin Arell MARINA MANAGER Active MECLIZINE HCL 25 MG ORAL TABLET one 4 times a day as needed for dizziness MECLIZINE HCL 04770208051 No Longer Active Erin Arell MARINA MANAGER Active SPIRONOLACTONE 25 MG ORAL TABLET 4 tablets by mouth daily SPIRONOLACTONE 56461636031 No Longer Active Eirn Arell MARINA MANAGER Active LEVAQUIN 500 MG ORAL TABLET 1 tablet by mouth daily for 7 days LEVOFLOXACIN 29366300446 No Longer Active Erin Arell MARINA MANAGER Active BACTRIM DS 800-160 MG ORAL TABLET 1 tab by mouth twice daily 2015 TRIMETHOPRIM-SULFAMETHOXAZOLE 41597833082 No Longer Active Robbie Busby MD Active HYDRALAZINE HCL 50 MG ORAL TABLET TWO BY MOUTH THREE TIMES DAILY HYDRALAZINE HCL 93910164180 No Longer Active Rober Rodríguez APRN Active HYDROCODONE-ACETAMINOPHEN 5-325 MG ORAL TABLET 1 tab by mouth BID prn back pain HYDROCODONE-ACETAMINOPHEN 33302577438 No Longer Active Rober Rodríguez APRN Active HYDROCHLOROTHIAZIDE TABLET Take one by mouth daily HYDROCHLOROTHIAZIDE TABS 94992152786 No Longer Active Jillina Frazell MARINA MANAGER Active LAMISIL 125 MG ORAL PACKET 1 TAB PO DAILY TERBINAFINE HCL 56817936585 No Longer Active Jillina Frazell MARINA MANAGER Active TRILEPTAL 150 MG ORAL TABLET 1 TAB PO Q HS OXCARBAZEPINE 72371434659 No Longer Active Jillina Frazell MARINA MANAGER Active BETADINE 10 % EXTERNAL SOLUTION wash with solution to treat follicultis 07/29 POVIDONE-IODINE 74572734468 No Longer Active Jillina Frazell MARINA MANAGER Active NYSTATIN 470723 UNIT/ML MOUTH/THROAT SUSPENSION 5mL po QID x 10 days NYSTATIN 04166864622 No Longer Active Erin Mai APRN Active PREDNISONE 20 MG ORAL TABLET 1 tablet twice daily for 2 days, then 1 tablet once daily for 2 days PREDNISONE 32457627775 No Longer Active Robbie Busby MD Active CEFDINIR 300 MG ORAL CAPSULE Take 1 cap po bid x 10 days CEFDINIR 53626163882 No Longer Active Robbie Busby MD Active AMLODIPINE BESYLATE 10 MG ORAL TABLET 1 tablet by mouth daily AMLODIPINE BESYLATE 82729523705 Active Robbie Busby MD Active CARVEDILOL 25 MG ORAL TABLET 1 & 1/2 TAB po BID CARVEDILOL 05821420168 Active Robbie Busby MD Active NEXIUM 40 MG ORAL CAPSULE DELAYED RELEASE 1 cap by mouth daily ESOMEPRAZOLE MAGNESIUM 22759859680 Active Robbie Busby MD Active PROTONIX 40 MG INTRAVENOUS SOLUTION RECONSTITUTED 1 po qday for acid reflux PANTOPRAZOLE SODIUM 94157973785 No Longer Active Gali Raida Active KEFLEX 500 MG ORAL CAPSULE 1 po TID x 10 days CEPHALEXIN 44365223370 No Longer Active Robbie Busby MD Active ALPRAZOLAM 2 MG ORAL TABLET 1 TAB PO BID ALPRAZOLAM 34707452848 Active Robbie Busby MD Active FENOFIBRATE 145 MG ORAL TABLET Take one by mouth daily FENOFIBRATE 77792540863 No Longer Active Robbie Busby MD Active SPIRONOLACTONE 50 MG ORAL TABLET 1 tablet by mouth twice a day SPIRONOLACTONE 18521253665 No Longer Active Robbie Busby MD Active HYDRALAZINE HCL 25 MG ORAL TABLET 1 tablet by mouth tid for hypertension 2013 HYDRALAZINE HCL 45620749649 No Longer Active Robbie Busby MD Active VIIBRYD 40 MG ORAL TABLET take 1 tab po qday for depression. 2014 VILAZODONE HCL 35513131254 No Longer Active Robbie Busby MD Active TERBINAFINE HCL 250 MG ORAL TABLET 1 tab po qday for foot infection TERBINAFINE HCL 07744249374 No Longer Active Robbie Busby MD Active GABAPENTIN 300 MG ORAL CAPSULE 1 po q hs for nerve pain GABAPENTIN 90426133599 Active Robbie Busby MD Active CHERATUSSIN AC 100-10 MG/5ML ORAL SOLUTION 7.5 mL PO q 4-6 hrs PRN cough 2014 GUAIFENESIN-CODEINE 68985251061 No Longer Active Robbie Busby MD Active AZITHROMYCIN 250 MG ORAL TABLET 2 tablets PO today---then, 1 tablet PO daily x 4 more days (and 1 optional refill) AZITHROMYCIN 59371005377 No Longer Active Robbie Busby MD Active NORVASC 10 MG ORAL TABLET 1 tablet by mouth daily AMLODIPINE BESYLATE 47462326592 No Longer Active Alex ALVAREZ Active ISOSORBIDE DINITRATE 30 MG ORAL TABLET Take one by mouth daily ISOSORBIDE DINITRATE 84775157270 No Longer Active Robbie Busby MD Active VIIBRYD 40 MG ORAL TABLET 1 TA B PO DAILY VILAZODONE HCL 40890251724 Active Robbie Busby MD Active ZITHROMAX 250 MG ORAL TABLET 2 po today, then 1 po q days 2-5 AZITHROMYCIN 32365665218 No Longer Active Robbie Busby MD Active DOXAZOSIN MESYLATE 4 MG ORAL TABLET Take one by mouth daily DOXAZOSIN MESYLATE 06038078140 Active Robbie Busby MD Active VENLAFAXINE HCL ER 150 MG ORAL TABLET EXTENDED RELEASE 24 HOUR Take one by mouth daily VENLAFAXINE HCL 15287144912 Active Robbie Busby MD Active LIPITOR 40 MG ORAL TABLET Take one by mouth daily ATORVASTATIN CALCIUM 45675475576 Active Robbie Busby MD Active ISOSORBIDE DINITRATE 30 MG ORAL TABLET Take one by mouth daily ISOSORBIDE DINITRATE 30 MG ORAL TABLET 976299 ISOSORBIDE DINITRATE Inactive NORVASC 10 MG ORAL TABLET 1 tablet by mouth daily NORVASC 10 MG ORAL TABLET 394832 AMLODIPINE BESYLATE Inactive AZITHROMYCIN 250 MG ORAL TABLET 2 tablets PO today---then, 1 tablet PO daily x 4 more days (and 1 optional refill) AZITHROMYCIN 250 MG ORAL TABLET 474847 AZITHROMYCIN Inactive CHERATUSSIN AC 100-10 MG/5ML ORAL SOLUTION 7.5 mL PO q 4-6 hrs PRN cough 2014 CHERATUSSIN AC 100-10 MG/5ML ORAL SOLUTION 577038 GUAIFENESIN-CODEINE Inactive VIIBRYD 40 MG ORAL TABLET take 1 tab po qday for depression. 2014 VIIBRYD 40 MG ORAL TABLET VILAZODONE HCL Inactive HYDRALAZINE HCL 25 MG ORAL TABLET 1 tablet by mouth tid for hypertension 2013 HYDRALAZINE HCL 25 MG ORAL TABLET 516248 HYDRALAZINE HCL Inactive SPIRONOLACTONE 50 MG ORAL TABLET 1 tablet by mouth twice a day SPIRONOLACTONE 50 MG ORAL TABLET 013818 SPIRONOLACTONE Inactive FENOFIBRATE 145 MG ORAL TABLET Take one by mouth daily FENOFIBRATE 145 MG ORAL TABLET 290366 FENOFIBRATE Inactive PROTONIX 40 MG INTRAVENOUS SOLUTION RECONSTITUTED 1 po qday for acid reflux PROTONIX 40 MG INTRAVENOUS SOLUTION RECONSTITUTED 241818 PANTOPRAZOLE SODIUM Inactive CEFDINIR 300 MG ORAL CAPSULE Take 1 cap po bid x 10 days CEFDINIR 300 MG ORAL CAPSULE 255891 CEFDINIR Inactive PREDNISONE 20 MG ORAL TABLET 1 tablet twice daily for 2 days, then 1 tablet once daily for 2 days PREDNISONE 20 MG ORAL TABLET 153290 PREDNISONE Inactive NYSTATIN 461806 UNIT/ML MOUTH/THROAT SUSPENSION 5mL po QID x 10 days NYSTATIN 910052 UNIT/ML MOUTH/THROAT SUSPENSION 402458 NYSTATIN Inactive BETADINE 10 % EXTERNAL SOLUTION wash with solution to treat follicultis 07/29 BETADINE 10 % EXTERNAL SOLUTION 6588657 POVIDONE-IODINE Inactive TRILEPTAL 150 MG ORAL TABLET 1 TAB PO Q HS TRILEPTAL 150 MG ORAL TABLET 612055 OXCARBAZEPINE Inactive LAMISIL 125 MG ORAL PACKET 1 TAB PO DAILY LAMISIL 125 MG ORAL PACKET TERBINAFINE HCL Inactive HYDROCHLOROTHIAZIDE TABLET Take one by mouth daily HYDROCHLOROTHIAZIDE TABLET HYDROCHLOROTHIAZIDE TABS Inactive HYDROCODONE-ACETAMINOPHEN 5-325 MG ORAL TABLET 1 tab by mouth BID prn back pain HYDROCODONE-ACETAMINOPHEN 5-325 MG ORAL TABLET 190765 HYDROCODONE-ACETAMINOPHEN Inactive HYDRALAZINE HCL 50 MG ORAL TABLET TWO BY MOUTH THREE TIMES DAILY HYDRALAZINE HCL 50 MG ORAL TABLET 845145 HYDRALAZINE HCL Inactive LEVAQUIN 500 MG ORAL TABLET 1 tablet by mouth daily for 7 days LEVAQUIN 500 MG ORAL TABLET 420390 LEVOFLOXACIN Inactive SPIRONOLACTONE 25 MG ORAL TABLET 4 tablets by mouth daily SPIRONOLACTONE 25 MG ORAL TABLET 908106 SPIRONOLACTONE Inactive MECLIZINE HCL 25 MG ORAL TABLET one 4 times a day as needed for dizziness MECLIZINE HCL 25 MG ORAL TABLET 494935 MECLIZINE HCL Inactive CLONIDINE HCL 0.2 MG ORAL TABLET 1 TAB BY MOUTH EVERY 8 HOURS CLONIDINE HCL 0.2 MG ORAL TABLET 856029 CLONIDINE HCL Inactive CYCLOBENZAPRINE HCL 10 MG ORAL TABLET 1 tablet by mouth three times daily as needed for muscle spasm/pain for 10 days CYCLOBENZAPRINE HCL 10 MG ORAL TABLET 673205 CYCLOBENZAPRINE HCL Inactive VITAMIN D3 43950 UNIT ORAL CAPSULE 2 CAPS PO WEEKLY VITAMIN D3 37027 UNIT ORAL CAPSULE CHOLECALCIFEROL Inactive FIORICET 50-300-40 MG ORAL CAPSULE take 1 tab po qday prn migraines. FIORICET 50-300-40 MG ORAL CAPSULE 006101 BUTALBITAL-APAP- CAFFEINE Inactive FLONASE 50 MCG/ACT NASAL SUSPENSION 1 spray each nostril twice daily for allergies and runny nose FLONASE 50 MCG/ACT NASAL SUSPENSION 8601006 FLUTICASONE PROPIONATE Inactive LORATADINE 10 MG ORAL TABLET 1 tablet by mouth daily for congestion and allergies. LORATADINE 10 MG ORAL TABLET 728814 LORATADINE Inactive NITROSTAT 0.4 MG SUBLINGUAL TABLET SUBLINGUAL PRN NITROSTAT 0.4 MG SUBLINGUAL TABLET SUBLINGUAL 960169 NITROGLYCERIN Inactive GUAIFENESIN ER 600 MG ORAL TABLET EXTENDED RELEASE 12 HOUR 1 tab po q am 2016 GUAIFENESIN ER 600 MG ORAL TABLET EXTENDED RELEASE 12 HOUR GUAIFENESIN Inactive CYCLOBENZAPRINE HCL 10 MG ORAL TABLET 1 po TID PRN muscle spasm/pain for 10 days CYCLOBENZAPRINE HCL 10 MG ORAL TABLET 047190 CYCLOBENZAPRINE HCL Inactive TOPIRAMATE 50 MG ORAL TABLET take 1 tab po BID for migraines. TOPIRAMATE 50 MG ORAL TABLET 921600 TOPIRAMATE Inactive PREDNISONE 20 MG ORAL TABLET two tabs by mouth today, then one tab by mouth days two and three PREDNISONE 20 MG ORAL TABLET 419901 PREDNISONE Inactive TOPROL XL 200 MG ORAL TABLET EXTENDED RELEASE 24 HOUR Take one by mouth daily TOPROL XL 200 MG ORAL TABLET EXTENDED RELEASE 24 HOUR METOPROLOL SUCCINATE Inactive CYCLOBENZAPRINE HCL 10 MG ORAL TABLET 1 tablet by mouth three times daily as needed for muscle spasm/pain CYCLOBENZAPRINE HCL 10 MG ORAL TABLET 049485 CYCLOBENZAPRINE HCL Inactive TOPIRAMATE 50 MG ORAL TABLET 1 po BID for migraines TOPIRAMATE 50 MG ORAL TABLET 296702 TOPIRAMATE Inactive TEMAZEPAM 15 MG ORAL CAPSULE 1 TAB PO Q HS TEMAZEPAM 15 MG ORAL CAPSULE 439902 TEMAZEPAM Inactive IMDUR 60 MG ORAL TABLET EXTENDED RELEASE 24 HOUR take 1 tab po qday for blood pressure IMDUR 60 MG ORAL TABLET EXTENDED RELEASE 24 HOUR ISOSORBIDE MONONITRATE Inactive DMNAAEVU-XQT-1 0.3 MG/24HR TRANSDERMAL PATCH WEEKLY apply 2 patches q week for HTN QOQOYOUU-LVY-2 0.3 MG/24HR TRANSDERMAL PATCH WEEKLY 534179 CLONIDINE HCL Inactive ZITHROMAX 250 MG ORAL TABLET 2 po today, then 1 po q days 2-5 ZITHROMAX 250 MG ORAL TABLET 532520 AZITHROMYCIN Inactive TERBINAFINE HCL 250 MG ORAL TABLET 1 tab po qday for foot infection TERBINAFINE HCL 250 MG ORAL TABLET 404380 TERBINAFINE HCL Inactive KEFLEX 500 MG ORAL CAPSULE 1 po TID x 10 days KEFLEX 500 MG ORAL CAPSULE 035504 CEPHALEXIN Inactive BACTRIM DS 800-160 MG ORAL TABLET 1 tab by mouth twice daily 2015 BACTRIM DS 800-160 MG ORAL TABLET 618936 TRIMETHOPRIM- SULFAMETHOXAZOLE Inactive PREDNISONE 20 MG ORAL TABLET take 3 tabs daily for 3 days, 2 tabs daily for 3 days, 1 tab daily for 3 days, 1/2 tab daily for 4 days PREDNISONE 20 MG ORAL TABLET 919750 PREDNISONE Inactive AZITHROMYCIN 250 MG ORAL TABLET 2 po qd x 1 day, then 1 po qd x 4 days 09/20 AZITHROMYCIN 250 MG ORAL TABLET 559731 AZITHROMYCIN Inactive SINGULAIR 10 MG ORAL TABLET 1 po qday for allergies. SINGULAIR 10 MG ORAL TABLET 486822 MONTELUKAST SODIUM Inactive Advance Directives Directive Description [...] AUTO - Chemistry sodium, serum 142 mmol/L 602-141 6975/07/17 carbon dioxide, venous blood 28.2 mmol/L 21.0-32.0 [...] Panel - Chemistry sodium, serum 141 mmol/L 707-434 5646/02/13 carbon dioxide, venous blood 23.9 mmol/L 21.0-32.0 [...] 6.9 % 4.3-6.0 sodium, serum 139 mmol/L 350-311 4583/01/04 potassium, serum 3.9 mmol/L 3.5-5.2 chloride, serum [...] 1.80 ng/mL 0.00-4.00 Lab Report: VITAMIN D, 25-HYDROXY/20440 - Chemistry vitamin D 25-hydroxy, serum 25 ng/mL 30-100 Encounters Code Encounter Date Provider Facility CPT-20559 Level 3 Est. Patient 13:59:07 CDT Renny Bella MD [facility] CPT-98692 Level 3 Est. Patient 16:04:17 CDT Robbie Busby MD [facility] CPT-77017 Level 4 Est. Patient 09:50:01 TRAFFIC CONTROL OFFICER Robbie Busby MD [facility]-37807 Level 4 Est. Patient 09:42:08 TRAFFIC CONTROL OFFICER Robbie Busby MD [facility] CPT-04174 Level 4 Est. Patient 13:07:39 TRAFFIC CONTROL OFFICER Robbie Busby MD [facility] CPT-83027 Level 4 Est. Patient 15:23:44 TRAFFIC CONTROL OFFICER Desmond Diaz DO [facility] CPT-86574 Level 3 Est. Patient 15:40:49 CDT Robbie Busby MD [facility] CPT-01596 Level 4 Est. Patient 15:18:19 CDT Robbie Busby MD [facility] CPT-77729 Level 3 Est. Patient 09:00:37 CDT Rober Rodríguez [facility] CPT-88077 Level 3 Est. Patient 16:07:10 CDT Robbie Busby MD [facility] CPT-64858 Level 4 Est. Patient 11:56:16 CDT Erin Mai [facility] CPT-07692 Level 3 Est. Patient 17:48:02 CDT Robbie Busby MD [facility] CPT-00858 Level 4 Est. Patient 12:00:49 TRAFFIC CONTROL OFFICER Rober Rodríguez [facility] CPT-13197 Level 3 Est. Patient 09:16:37 CDT Robbie Busby MD [facility] CPT-32577 Level 3 Est. Patient 19:38:43 CDT Robbie Busby MD [facility] CPT-08418 Level 3 Est. Patient 11:53:38 CDT Robbie Busby MD [facility]-99279 Level 4 Est. Patient 12:52:22 CDT Rober Rodríguez APRN [facility] CPT-69794 Level 4 Est. Patient 22:55:17 CDT Robbie Busby MD [facility]-56256 Level 3 Est. Patient 12:38:24 CDT Desmond Diaz DO [facility] CPT-64923 Level 4 Est. Patient 11:25:03 TRAFFIC CONTROL OFFICER Robbie Busby MD [facility]-07194 Level 4 Est. Patient 14:50:10 CDT Robbie Busby MD [facility] CPT-94162 Level 4 Est. Patient 23:30:43 CDT Robbie Busby MD [facility] CPT-91548 Level 4 Est. Patient 10:30:43 CDT Robbie Busby MD [facility] CPT-04815 Level 3 Est. Patient 17:08:12 CDT Alex ALVAREZ [facility] CPT-05389 Level 4 Est. Patient 17:51:38 CDT Robbie Busby MD [facility] CPT-39428 Level 4 Est. Patient 14:00:21 CDT Robbie Busby MD [facility] CPT-25836 Level 4 Est. Patient 12:46:48 CDT Robbie Busby MD [facility]-50999 Level 4 Est. Patient 13:34:33 CDT Robbie Busby MD [facility] CPT-83346 Level 4 Est. Patient 16:58:28 CDT Robbie Busby MD [facility] CPT-19265 Level 3 Est. Patient 19:36:53 CDT Alex ALVAREZ [facility] CPT-99654 Level 3 Est. Patient 12:58:15 CDT Robbie Busby MD [facility] Procedures Code Procedure Name Date Entry Date Standard Description CPT-J1071 Depo Testosterone 200mg 09:01:06 CDT CPT-65923 Abx/Therapy Injection 09:01:06 CDT CPT-J1100 Decadron 8mg (Dexamethasone) 16:04:17 CDT CPT-J1040 Depo Medrol 80 mg (Methyl Prednisolone Acetate) 16:04: 17 CDT CPT-J1071 Depo Testosterone 200mg 08:56:46 CDT CPT-10691 Abx/Therapy Injection 08:56:45 CDT CPT-J1071 Depo Testosterone 200mg 08:26:27 CDT CPT-95617 Abx/Therapy Injection 08:26:27 CDT CPT-J1071 Depo Testosterone 200mg 10:27:10 CDT CPT-47548 Abx/Therapy Injection 10:27:10 CDT CPT-J1071 Depo Testosterone 200mg 16:10:29 TRAFFIC CONTROL OFFICER CPT-57005 Abx/Therapy Injection 16:10:29 TRAFFIC CONTROL OFFICER CPT-J1071 Depo Testosterone 200mg 16:13:47 TRAFFIC CONTROL OFFICER CPT-64946 Abx/Therapy Injection 16:13:46 TRAFFIC CONTROL OFFICER CPT-J1071 Depo Testosterone 200mg 15:33:58 TRAFFIC CONTROL OFFICER CPT-56408 Abx/Therapy Injection 15:33:58 TRAFFIC CONTROL OFFICER CPT-J1071 Depo Testosterone 200mg 09:38:36 TRAFFIC CONTROL OFFICER CPT-47545 Abx/Therapy Injection 09:38:36 TRAFFIC CONTROL OFFICER CPT-J1071 Depo Testosterone 200mg 10:22:56 TRAFFIC CONTROL OFFICER CPT-17159 Abx/Therapy Injection 10:22:56 TRAFFIC CONTROL OFFICER CPT-J1071 Depo Testosterone 200mg 15:40:23 CDT CPT-02386 Abx/Therapy Injection 15:40:23 CDT CPT-J1071 Depo Testosterone 200mg 14:20:43 CDT CPT-95428 Abx/Therapy Injection 14:20:43 CDT CPT-J1071 Depo Testosterone 200mg 14:17:22 CDT CPT-95719 Abx/Therapy Injection 14:17:22 CDT CPT-J1071 Depo Testosterone 200mg 09:03:53 CDT CPT-16682 Abx/Therapy Injection 09:03:53 CDT CPT-G0439 [facility] Annual Wellness Exam 16:47:44 CDT CPT-J1071 Depo Testosterone 200mg 09:06:28 CDT CPT-97290 Abx/Therapy Injection 09:06:28 CDT CPT-J1071 Depo Testosterone 200mg 08:30:01 CDT CPT-58606 Abx/Therapy Injection 08:30:01 CDT CPT-J1071 Depo Testosterone 200mg 08:24:00 CDT CPT-79868 Abx/Therapy Injection 08:24:00 CDT CPT-76434 Venipuncture Draw Fee 14:39:06 CDT CPT-53852 Ribs unilateral 2V - XRAY USE ONLY 12:10:11 CDT CPT-59324 First Vx - Ix admin for Medicare patients 16:32:53 CDT CPT-24278 Boostrix Intramuscular Suspension 5-2.5-18.5 16:32:53 CDT CPT-36399 TB Skin Test 11:42:28 CDT CPT-42779 Tdap 7yrs or > 11:42:28 CDT CPT-J0696 Rocephin 1000 mg (Ceftriaxone) 17:43:43 TRAFFIC CONTROL OFFICER CPT-J1040 Depo Medrol 80 mg (Methyl Prednisolone Acetate) 17:43: 43 TRAFFIC CONTROL OFFICER CPT-J1100 Decadron 8mg (Dexamethasone) 17:43:42 TRAFFIC CONTROL OFFICER CPT-24015 Abx/Therapy Injection 17:43:42 TRAFFIC CONTROL OFFICER CPT-59466 Abx/Therapy Injection 17:43:42 TRAFFIC CONTROL OFFICER CPT-J1040 Depo Medrol 80 mg (Methyl Prednisolone [employer]et[employer]) 09:43: 34 [employer] CPT-J1100 Decadron 8mg (Dexamethasone) 09:43:34 [employer] OFFICER CPT-J0696 Rocephin 1gm Inj Solr 09:43:34 [employer] OFFICER CPT-19958 Wound Culture - LAB USE ONLY 14:00:21 CDT CPT-I/D I/D Abscess 09:16:37 CDT CPT-29583 Venipuncture Draw Fee 15:20:23 CDT CPT-92541 Microalbumin - LAB USE ONLY 16:02:19 CDT CPT-63484 CBC - LAB USE ONLY 16:02:19 CDT CPT-42237 Venipuncture Draw Fee 16:02:19 CDT CPT-G0438 Initial Annual Wellness Exam 08:10:28 CDT CPT-50620 Venipuncture Draw Fee 13:07:17 CDT CPT-G0008 Administration of Influenza Virus Vaccine 16:09:59 CDT CPT-07973 Fluzone Quadrivalent Intramuscular Suspension 0.5 ML 16: 09:59 CDT CPT-86328 Spec Collection and Handling Fee 15:05:50 CDT
--- OUTSIDE RECORDS SUMMARY | 2018-04-18 13:09 | XMS REPORT | Clinical Summary ---
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 Desmond Diaz DO Other malignant secondary hypertension Tachycardia 785.0 Active Rober Rodríguez ROOFER APPRENTICE Tachycardia, unspecified Insect bite, infected 919.5 Resolved Desmond Diaz DO Insect bite, nonvenomous, of other, multiple, and unspecified sites, infected Abscess, skin 682.9 Resolved Desmond Diaz DO Cellulitis and abscess of unspecified sites URI 465.9 Resolved Desmond Diaz DO Acute upper respiratory infections of unspecified site Hypertension 401.9 Active Rober Rodríguez ROOFER APPRENTICE Unspecified essential hypertension Sinusitis - acute 461.9 [...] Hypogonadism, low testosterone 257.2 Active Erin Mai ROOFER APPRENTICE Other testicular hypofunction Low back pain, chronic [...] unspecified site Sinusitis ICD-461.9 Inactive Emily Atwood [employer] 2017 Low back pain, acute ICD-724.2 Inactive Emily Atwood [employer] Low back pain, chronic ICD-724.2 Inactive Emily Atwood [employer] Bronchitis, acute ICD-466.0 Inactive Emily Atwood [employer] Onychomycosis, toenails ICD-110.1 Inactive Emily Atwood [employer] Dizziness ICD-780.4 Inactive Emily Atwood [employer] 2017 Folliculitis ICD-704.8 Inactive Emily Atwood [employer] Pharyngitis-Acute ICD-462 Inactive Emily Atwood [employer] Fatigue ICD-780.79 Inactive Emily Atwood [employer] 09/20 Hypertension, secondary, malignant ICD-405.09 Inactive Emily Atwood [employer] Insect bite, infected ICD-919.5 Inactive Emily Atwood [employer] Abscess, skin ICD-682.9 Inactive Emliy Atwood [employer] URI ICD-465.9 Inactive Emily Atwood [employer] Sinusitis - acute ICD-461.9 Inactive Emily Atwood [employer] Acute confusion ICD-293.0 Inactive Emily Atwood [employer] Headache ICD-784.0 Inactive Emily Atwood [employer] 09/20 Back pain ICD-724.5 Inactive Emily Atwood [employer] 2017 Rib pain, right sided ICD-786.50 Inactive Emily Atwood [employer] Myalgias ICD-729.1 Inactive Emily Atwood [employer] 09/20 URI ICD-465.9 Inactive Emily Atwood [employer] Bronchitis-Acute ICD-466.0 Inactive Desmond Diaz DO Medication List Medication Instructions Start Date Stop Date Generic Name NDC Status Provider Patient Instruction PREDNISONE 20 MG ORAL TABLET 2 po qd x 5 days PREDNISONE 54074137849 Active Renny Bella MD Active PROMETHAZINE-CODEINE 6.25-10 MG/5ML ORAL SYRUP 5ml po q6hr PRN Cough PROMETHAZINE-CODEINE 95305565542 Active Renny Bella MD Active MONTELUKAST SODIUM 10 MG ORAL TABLET 1 tab po daily for allergies MONTELUKAST SODIUM 65749750295 Active JONATHAN Moncada Active IMDUR 60 MG ORAL TABLET EXTENDED RELEASE 24 HOUR 1 po q day ISOSORBIDE MONONITRATE 57694328433 Active Emma Hernandez Active METOPROLOL SUCCINATE ER 200 MG ORAL TABLET EXTENDED RELEASE 24 HOUR take 1 tab po qday for high blood pressure and rapid pulse METOPROLOL SUCCINATE 50985714486 Active Robbie Busby MD Active [id number]-IDA-6 0.3 MG/24HR TRANSDERMAL PATCH WEEKLY apply 2 patches q week for HTN CLONIDINE HCL 35382369283 No Longer Active Robbie Busby MD Active IMDUR 60 MG ORAL TABLET EXTENDED RELEASE 24 HOUR take 1 tab po qday for blood pressure ISOSORBIDE MONONITRATE 39832489242 No Longer Active Robbie Busby MD Active TEMAZEPAM 15 MG ORAL CAPSULE 1 TAB PO Q HS TEMAZEPAM 56132310285 No Longer Active Robbie Busby MD Active TOPIRAMATE 50 MG ORAL TABLET 1 po BID for migraines TOPIRAMATE 01766504859 No Longer Active Robbie Busby MD Active CYCLOBENZAPRINE HCL 10 MG ORAL TABLET 1 tablet by mouth three times daily as needed for muscle spasm/pain CYCLOBENZAPRINE HCL 62894920255 No Longer Active Robbie Busby MD Active TOPROL XL 200 MG ORAL TABLET EXTENDED RELEASE 24 HOUR Take one by mouth daily METOPROLOL SUCCINATE 14020336931 No Longer Active Robbie Busby MD Active METFORMIN HCL 500 MG ORAL TABLET 1 tablet by mouth daily for diabetes type 2 METFORMIN HCL 34278056156 Active Robbie Busby MD Active SINGULAIR 10 MG ORAL TABLET 1 po qday for allergies. MONTELUKAST SODIUM 94353732912 No Longer Active Robbie Busby MD Active PREDNISONE 20 MG ORAL TABLET two tabs by mouth today, then one tab by mouth days two and three PREDNISONE 82323326469 No Longer Active Robbie Busby MD Active AZITHROMYCIN 250 MG ORAL TABLET 2 po qd x 1 day, then 1 po qd x 4 days 09/20 AZITHROMYCIN 48189341837 No Longer Active Desmond Diaz DO Active TOPIRAMATE 50 MG ORAL TABLET take 1 tab po BID for migraines. TOPIRAMATE 14257065301 No Longer Active Desmond Diaz DO Active CYCLOBENZAPRINE HCL 10 MG ORAL TABLET 1 po TID PRN muscle spasm/pain for 10 days CYCLOBENZAPRINE HCL 76730383015 No Longer Active Desmond Diaz DO Active GUAIFENESIN ER 600 MG ORAL TABLET EXTENDED RELEASE 12 HOUR 1 tab po q am 2016 GUAIFENESIN 90027261299 No Longer Active Robbie Busby MD Active DIVALPROEX SODIUM ER 500 MG ORAL TABLET EXTENDED RELEASE 24 HOUR Once daily DIVALPROEX SODIUM 94504983992 Active Robbie Busby MD Active DEPO-TESTOSTERONE 200 MG/ML INTRAMUSCULAR SOLUTION 1 IM Injections every 2 weeks for low testosterone TESTOSTERONE CYPIONATE 47446818753 Active Zulema Blank LPN Active FLUTICASONE PROPIONATE 50 MCG/ACT NASAL SUSPENSION 2 sprays per nostril bid for 1 week, then 1 spray bid FLUTICASONE PROPIONATE 92976777999 Active Jillld Rodríguez APRN Active HYDRALAZINE HCL 25 MG ORAL TABLET Take 1 tab BID. HYDRALAZINE HCL 92607017817 Active Jillld Rodríguez APRN Active VITAMIN D3 79845 UNIT ORAL TABLET 2 po weekly CHOLECALCIFEROL 76534125072 Active Robbie Busby MD Active OXYCODONE HCL ER 10 MG ORAL TABLET ER 12 HOUR ABUSE-DETERRENT 1 tab po 3 times qd. OXYCODONE HCL 89394918752 Active Robbie Busby MD Active NITROSTAT 0.4 MG SUBLINGUAL TABLET SUBLINGUAL PRN NITROGLYCERIN 84188989659 No Longer Active Robbie Busby MD Active LORATADINE 10 MG ORAL TABLET 1 tablet by mouth daily for congestion and allergies. LORATADINE 70697580336 No Longer Active Robbie Busby MD Active FLONASE 50 MCG/ACT NASAL SUSPENSION 1 spray each nostril twice daily for allergies and runny nose FLUTICASONE PROPIONATE 15791802979 No Longer Active Robbie Busby MD Active FIORICET 50-300-40 MG ORAL CAPSULE take 1 tab po qday prn migraines. [id number] 16645855085 No Longer Active Robbie Busby MD Active VITAMIN D3 13385 UNIT ORAL CAPSULE 2 CAPS PO WEEKLY CHOLECALCIFEROL 95170172225 No Longer Active Robbie Busby MD Active CYCLOBENZAPRINE HCL 10 MG ORAL TABLET 1 tablet by mouth three times daily as needed for muscle spasm/pain for 10 days CYCLOBENZAPRINE HCL 34239967417 No Longer Active Robbie Busby MD Active PREDNISONE 20 MG ORAL TABLET take 3 tabs daily for 3 days, 2 tabs daily for 3 days, 1 tab daily for 3 days, 1/2 tab daily for 4 days PREDNISONE 74998382022 No Longer Active Erin Arell ROOFER APPRENTICE Active CLONIDINE HCL 0.2 MG ORAL TABLET 1 TAB BY MOUTH EVERY 8 HOURS CLONIDINE HCL 49339990223 No Longer Active Erin Arell ROOFER APPRENTICE Active MECLIZINE HCL 25 MG ORAL TABLET one 4 times a day as needed for dizziness MECLIZINE HCL 19532185590 No Longer Active Erin Arell ROOFER APPRENTICE Active SPIRONOLACTONE 25 MG ORAL TABLET 4 tablets by mouth daily SPIRONOLACTONE 13843834124 No Longer Active Erin Arell ROOFER APPRENTICE Active LEVAQUIN 500 MG ORAL TABLET 1 tablet by mouth daily for 7 days LEVOFLOXACIN 97723650063 No Longer Active Erin Arell ROOFER APPRENTICE Active BACTRIM DS 800-160 MG ORAL TABLET 1 tab by mouth twice daily 2015 TRIMETHOPRIM-SULFAMETHOXAZOLE 81939830547 No Longer Active Robbie Busby MD Active HYDRALAZINE HCL 50 MG ORAL TABLET TWO BY MOUTH THREE TIMES DAILY HYDRALAZINE HCL 92831247132 No Longer Active Rober Rodríguez APRN Active HYDROCODONE-ACETAMINOPHEN 5-325 MG ORAL TABLET 1 tab by mouth BID prn back pain HYDROCODONE-ACETAMINOPHEN 39639582780 No Longer Active Rober Rodríguez APRN Active HYDROCHLOROTHIAZIDE TABLET Take one by mouth daily HYDROCHLOROTHIAZIDE TABS 54607867421 No Longer Active Jillina Frazell ROOFER APPRENTICE Active LAMISIL 125 MG ORAL PACKET 1 TAB PO DAILY TERBINAFINE HCL 59961946379 No Longer Active Jillina Frazell ROOFER APPRENTICE Active TRILEPTAL 150 MG ORAL TABLET 1 TAB PO Q HS OXCARBAZEPINE 62931999745 No Longer Active Jillina Frazell ROOFER APPRENTICE Active BETADINE 10 % EXTERNAL SOLUTION wash with solution to treat follicultis 07/29 POVIDONE-IODINE 06062682510 No Longer Active Jillina Frazell ROOFER APPRENTICE Active NYSTATIN 462947 UNIT/ML MOUTH/THROAT SUSPENSION 5mL po QID x 10 days NYSTATIN 55835008301 No Longer Active Erin Mai APRN Active PREDNISONE 20 MG ORAL TABLET 1 tablet twice daily for 2 days, then 1 tablet once daily for 2 days PREDNISONE 12460769627 No Longer Active Robbie Busby MD Active CEFDINIR 300 MG ORAL CAPSULE Take 1 cap po bid x 10 days CEFDINIR 36693164829 No Longer Active Robbie Busby MD Active AMLODIPINE BESYLATE 10 MG ORAL TABLET 1 tablet by mouth daily AMLODIPINE BESYLATE 79026646470 Active Robbie Busby MD Active CARVEDILOL 25 MG ORAL TABLET 1 & 1/2 TAB po BID CARVEDILOL 81441397858 Active Robbie Busby MD Active NEXIUM 40 MG ORAL CAPSULE DELAYED RELEASE 1 cap by mouth daily ESOMEPRAZOLE MAGNESIUM 09494636710 Active Robbie Busby MD Active PROTONIX 40 MG INTRAVENOUS SOLUTION RECONSTITUTED 1 po qday for acid reflux PANTOPRAZOLE SODIUM 56227557941 No Longer Active Gali Raida Active KEFLEX 500 MG ORAL CAPSULE 1 po TID x 10 days CEPHALEXIN 56396684705 No Longer Active Robbie Busby MD Active ALPRAZOLAM 2 MG ORAL TABLET 1 TAB PO BID ALPRAZOLAM 18352057575 Active Robbie Busby MD Active FENOFIBRATE 145 MG ORAL TABLET Take one by mouth daily FENOFIBRATE 48998067130 No Longer Active Robbie Busby MD Active SPIRONOLACTONE 50 MG ORAL TABLET 1 tablet by mouth twice a day SPIRONOLACTONE 26389070072 No Longer Active Robbie Busby MD Active HYDRALAZINE HCL 25 MG ORAL TABLET 1 tablet by mouth tid for hypertension 2013 HYDRALAZINE HCL 41911729694 No Longer Active Robbie Busby MD Active VIIBRYD 40 MG ORAL TABLET take 1 tab po qday for depression. 2014 VILAZODONE HCL 40786196072 No Longer Active Robbie Busby MD Active TERBINAFINE HCL 250 MG ORAL TABLET 1 tab po qday for foot infection TERBINAFINE HCL 50224516842 No Longer Active Robbie Busby MD Active GABAPENTIN 300 MG ORAL CAPSULE 1 po q hs for nerve pain GABAPENTIN 00604264832 Active Robbie Busby MD Active CHERATUSSIN AC 100-10 MG/5ML ORAL SOLUTION 7.5 mL PO q 4-6 hrs PRN cough 2014 GUAIFENESIN-CODEINE 34291311972 No Longer Active Robbie Busby MD Active AZITHROMYCIN 250 MG ORAL TABLET 2 tablets PO today---then, 1 tablet PO daily x 4 more days (and 1 optional refill) AZITHROMYCIN 76958693218 No Longer Active Robbie Busby MD Active NORVASC 10 MG ORAL TABLET 1 tablet by mouth daily AMLODIPINE BESYLATE 99722912792 No Longer Active Alex ALVAREZ Active ISOSORBIDE DINITRATE 30 MG ORAL TABLET Take one by mouth daily ISOSORBIDE DINITRATE 16381283785 No Longer Active Robbie Busby MD Active VIIBRYD 40 MG ORAL TABLET 1 TA B PO DAILY VILAZODONE HCL 04158005533 Active Robbie Busby MD Active ZITHROMAX 250 MG ORAL TABLET 2 po today, then 1 po q days 2-5 AZITHROMYCIN 41775932166 No Longer Active Robbie Busby MD Active DOXAZOSIN MESYLATE 4 MG ORAL TABLET Take one by mouth daily DOXAZOSIN MESYLATE 63062319483 Active Robbie Busby MD Active VENLAFAXINE HCL ER 150 MG ORAL TABLET EXTENDED RELEASE 24 HOUR Take one by mouth daily VENLAFAXINE HCL 57957425875 Active Robbie Busby MD Active LIPITOR 40 MG ORAL TABLET Take one by mouth daily ATORVASTATIN CALCIUM 59909248929 Active Robbie Busby MD Active ISOSORBIDE DINITRATE 30 MG ORAL TABLET Take one by mouth daily ISOSORBIDE DINITRATE 30 MG ORAL TABLET 404142 ISOSORBIDE DINITRATE Inactive NORVASC 10 MG ORAL TABLET 1 tablet by mouth daily NORVASC 10 MG ORAL TABLET 364394 AMLODIPINE BESYLATE Inactive AZITHROMYCIN 250 MG ORAL TABLET 2 tablets PO today---then, 1 tablet PO daily x 4 more days (and 1 optional refill) AZITHROMYCIN 250 MG ORAL TABLET 798743 AZITHROMYCIN Inactive CHERATUSSIN AC 100-10 MG/5ML ORAL SOLUTION 7.5 mL PO q 4-6 hrs PRN cough 2014 CHERATUSSIN AC 100-10 MG/5ML ORAL SOLUTION 214021 GUAIFENESIN-CODEINE Inactive VIIBRYD 40 MG ORAL TABLET take 1 tab po qday for depression. 2014 VIIBRYD 40 MG ORAL TABLET VILAZODONE HCL Inactive HYDRALAZINE HCL 25 MG ORAL TABLET 1 tablet by mouth tid for hypertension 2013 HYDRALAZINE HCL 25 MG ORAL TABLET 448252 HYDRALAZINE HCL Inactive SPIRONOLACTONE 50 MG ORAL TABLET 1 tablet by mouth twice a day SPIRONOLACTONE 50 MG ORAL TABLET 521666 SPIRONOLACTONE Inactive FENOFIBRATE 145 MG ORAL TABLET Take one by mouth daily FENOFIBRATE 145 MG ORAL TABLET 417934 FENOFIBRATE Inactive PROTONIX 40 MG INTRAVENOUS SOLUTION RECONSTITUTED 1 po qday for acid reflux PROTONIX 40 MG INTRAVENOUS SOLUTION RECONSTITUTED 517578 PANTOPRAZOLE SODIUM Inactive CEFDINIR 300 MG ORAL CAPSULE Take 1 cap po bid x 10 days CEFDINIR 300 MG ORAL CAPSULE 961309 CEFDINIR Inactive PREDNISONE 20 MG ORAL TABLET 1 tablet twice daily for 2 days, then 1 tablet once daily for 2 days PREDNISONE 20 MG ORAL TABLET 917267 PREDNISONE Inactive NYSTATIN 508628 UNIT/ML MOUTH/THROAT SUSPENSION 5mL po QID x 10 days NYSTATIN 099900 UNIT/ML MOUTH/THROAT SUSPENSION 491640 NYSTATIN Inactive BETADINE 10 % EXTERNAL SOLUTION wash with solution to treat follicultis 07/29 BETADINE 10 % EXTERNAL SOLUTION 3361110 POVIDONE-IODINE Inactive TRILEPTAL 150 MG ORAL TABLET 1 TAB PO Q HS TRILEPTAL 150 MG ORAL TABLET 474764 OXCARBAZEPINE Inactive LAMISIL 125 MG ORAL PACKET 1 TAB PO DAILY LAMISIL 125 MG ORAL PACKET TERBINAFINE HCL Inactive HYDROCHLOROTHIAZIDE TABLET Take one by mouth daily HYDROCHLOROTHIAZIDE TABLET HYDROCHLOROTHIAZIDE TABS Inactive HYDROCODONE-ACETAMINOPHEN 5-325 MG ORAL TABLET 1 tab by mouth BID prn back pain HYDROCODONE-ACETAMINOPHEN 5-325 MG ORAL TABLET 842633 HYDROCODONE-ACETAMINOPHEN Inactive HYDRALAZINE HCL 50 MG ORAL TABLET TWO BY MOUTH THREE TIMES DAILY HYDRALAZINE HCL 50 MG ORAL TABLET 700122 HYDRALAZINE HCL Inactive LEVAQUIN 500 MG ORAL TABLET 1 tablet by mouth daily for 7 days LEVAQUIN 500 MG ORAL TABLET 778569 LEVOFLOXACIN Inactive SPIRONOLACTONE 25 MG ORAL TABLET 4 tablets by mouth daily SPIRONOLACTONE 25 MG ORAL TABLET 340534 SPIRONOLACTONE Inactive MECLIZINE HCL 25 MG ORAL TABLET one 4 times a day as needed for dizziness MECLIZINE HCL 25 MG ORAL TABLET 065554 MECLIZINE HCL Inactive CLONIDINE HCL 0.2 MG ORAL TABLET 1 TAB BY MOUTH EVERY 8 HOURS CLONIDINE HCL 0.2 MG ORAL TABLET 340399 CLONIDINE HCL Inactive CYCLOBENZAPRINE HCL 10 MG ORAL TABLET 1 tablet by mouth three times daily as needed for muscle spasm/pain for 10 days CYCLOBENZAPRINE HCL 10 MG ORAL TABLET 447124 CYCLOBENZAPRINE HCL Inactive VITAMIN D3 76607 UNIT ORAL CAPSULE 2 CAPS PO WEEKLY VITAMIN D3 45088 UNIT ORAL CAPSULE CHOLECALCIFEROL Inactive FIORICET 50-300-40 MG ORAL CAPSULE take 1 tab po qday prn migraines. FIORICET 50-300-40 MG ORAL CAPSULE 043951 BUTALBITAL-APAP- CAFFEINE Inactive FLONASE 50 MCG/ACT NASAL SUSPENSION 1 spray each nostril twice daily for allergies and runny nose FLONASE 50 MCG/ACT NASAL SUSPENSION 2697884 FLUTICASONE PROPIONATE Inactive LORATADINE 10 MG ORAL TABLET 1 tablet by mouth daily for congestion and allergies. LORATADINE 10 MG ORAL TABLET 756432 LORATADINE Inactive NITROSTAT 0.4 MG SUBLINGUAL TABLET SUBLINGUAL PRN NITROSTAT 0.4 MG SUBLINGUAL TABLET SUBLINGUAL 272714 NITROGLYCERIN Inactive GUAIFENESIN ER 600 MG ORAL TABLET EXTENDED RELEASE 12 HOUR 1 tab po q am 2016 GUAIFENESIN ER 600 MG ORAL TABLET EXTENDED RELEASE 12 HOUR GUAIFENESIN Inactive CYCLOBENZAPRINE HCL 10 MG ORAL TABLET 1 po TID PRN muscle spasm/pain for 10 days CYCLOBENZAPRINE HCL 10 MG ORAL TABLET 868273 CYCLOBENZAPRINE HCL Inactive TOPIRAMATE 50 MG ORAL TABLET take 1 tab po BID for migraines. TOPIRAMATE 50 MG ORAL TABLET 869837 TOPIRAMATE Inactive PREDNISONE 20 MG ORAL TABLET two tabs by mouth today, then one tab by mouth days two and three PREDNISONE 20 MG ORAL TABLET 921111 PREDNISONE Inactive TOPROL XL 200 MG ORAL TABLET EXTENDED RELEASE 24 HOUR Take one by mouth daily TOPROL XL 200 MG ORAL TABLET EXTENDED RELEASE 24 HOUR METOPROLOL SUCCINATE Inactive CYCLOBENZAPRINE HCL 10 MG ORAL TABLET 1 tablet by mouth three times daily as needed for muscle spasm/pain CYCLOBENZAPRINE HCL 10 MG ORAL TABLET 720785 CYCLOBENZAPRINE HCL Inactive TOPIRAMATE 50 MG ORAL TABLET 1 po BID for migraines TOPIRAMATE 50 MG ORAL TABLET 544338 TOPIRAMATE Inactive TEMAZEPAM 15 MG ORAL CAPSULE 1 TAB PO Q HS TEMAZEPAM 15 MG ORAL CAPSULE 517617 TEMAZEPAM Inactive IMDUR 60 MG ORAL TABLET EXTENDED RELEASE 24 HOUR take 1 tab po qday for blood pressure IMDUR 60 MG ORAL TABLET EXTENDED RELEASE 24 HOUR ISOSORBIDE MONONITRATE Inactive [id number] 0.3 MG/24HR TRANSDERMAL PATCH WEEKLY apply 2 patches q week for HTN [id number]-[id number] 0.3 MG/24HR TRANSDERMAL PATCH WEEKLY 454987 CLONIDINE HCL Inactive ZITHROMAX 250 MG ORAL TABLET 2 po today, then 1 po q days 2-5 ZITHROMAX 250 MG ORAL TABLET 455120 AZITHROMYCIN Inactive TERBINAFINE HCL 250 MG ORAL TABLET 1 tab po qday for foot infection TERBINAFINE HCL 250 MG ORAL TABLET 043524 TERBINAFINE HCL Inactive KEFLEX 500 MG ORAL CAPSULE 1 po TID x 10 days KEFLEX 500 MG ORAL CAPSULE 462663 CEPHALEXIN Inactive BACTRIM DS 800-160 MG ORAL TABLET 1 tab by mouth twice daily 2015 BACTRIM DS 800-160 MG ORAL TABLET 192080 TRIMETHOPRIM- SULFAMETHOXAZOLE Inactive PREDNISONE 20 MG ORAL TABLET take 3 tabs daily for 3 days, 2 tabs daily for 3 days, 1 tab daily for 3 days, 1/2 tab daily for 4 days PREDNISONE 20 MG ORAL TABLET 860806 PREDNISONE Inactive AZITHROMYCIN 250 MG ORAL TABLET 2 po qd x 1 day, then 1 po qd x 4 days 09/20 AZITHROMYCIN 250 MG ORAL TABLET 245688 AZITHROMYCIN Inactive SINGULAIR 10 MG ORAL TABLET 1 po qday for allergies. SINGULAIR 10 MG ORAL TABLET 887439 MONTELUKAST SODIUM Inactive Advance Directives Directive Description [...] Measured blood pressure, diastolic 112 mm[Hg] BP de lrio blood pressure, systolic 184 mm[Hg] BP sys height E&M 64 [in_us] Bdy height pulse rate E&M 75 /min Heart rate temperature E&M 96.9 [degF] Body temperature weight E&M 219 [lb_av] Weight Measured Diagnostic Results Date Name Value Unit Range Description Lab Report: CBC W/DIFF, Comp. Metabolic Panel, CKI, UADIP W/MICRO, AUTO - Chemistry sodium, serum 142 mmol/L 692-181 7478/07/17 carbon dioxide, venous blood 28.2 mmol/L 21.0-32.0 [...] Panel - Chemistry sodium, serum 141 mmol/L 108-681 1248/02/13 carbon dioxide, venous blood 23.9 mmol/L 21.0-32.0 [...] 6.9 % 4.3-6.0 sodium, serum 139 mmol/L 452-582 3749/01/04 potassium, serum 3.9 mmol/L 3.5-5.2 chloride, serum [...] 1.80 ng/mL 0.00-4.00 Lab Report: VITAMIN D, 25-HYDROXY/22418 - Chemistry vitamin D 25-hydroxy, serum 25 ng/mL 30-100 Encounters Code Encounter Date Provider Facility CPT-52021 Level 3 Est. Patient 13:59:07 CDT Renny Bella MD [facility] CPT-21840 Level 3 Est. Patient 16:04:17 CDT Robbie Busby MD [facility] CPT-01123 Level 4 Est. Patient 09:50:01 EVP OPERATIONS Robbie Busby MD [facility]-11275 Level 4 Est. Patient 09:42:08 EVP OPERATIONS Robbie Busby MD [facility] CPT-32909 Level 4 Est. Patient 13:07:39 EVP OPERATIONS Robbie Busby MD [facility] CPT-59097 Level 4 Est. Patient 15:23:44 EVP OPERATIONS Desmond Diaz DO [facility] CPT-53057 Level 3 Est. Patient 15:40:49 CDT Robbie Busby MD [facility] CPT-20314 Level 4 Est. Patient 15:18:19 CDT Robbie Busby MD [facility] CPT-31992 Level 3 Est. Patient 09:00:37 CDT Rober Rodríguez [facility] CPT-02932 Level 3 Est. Patient 16:07:10 CDT Robbie Busby MD [facility] CPT-39444 Level 4 Est. Patient 11:56:16 CDT Erin Mai [facility] CPT-27579 Level 3 Est. Patient 17:48:02 CDT Robbie Busby MD [facility] CPT-63803 Level 4 Est. Patient 12:00:49 EVP OPERATIONS Rober Rodríguez [facility] CPT-11338 Level 3 Est. Patient 09:16:37 CDT Robbie Busby MD [facility] CPT-46841 Level 3 Est. Patient 19:38:43 CDT Robbie Busby MD [facility] CPT-77507 Level 3 Est. Patient 11:53:38 CDT Robbie Busby MD [facility]-57818 Level 4 Est. Patient 12:52:22 CDT Rober Rodríguez APRN [facility] CPT-06159 Level 4 Est. Patient 22:55:17 CDT Robbie Busby MD [facility]-87551 Level 3 Est. Patient 12:38:24 CDT Desmond Diaz DO [facility] CPT-46815 Level 4 Est. Patient 11:25:03 EVP OPERATIONS Robbie Busby MD [facility]-74392 Level 4 Est. Patient 14:50:10 CDT Robbie Busby MD [facility] CPT-82216 Level 4 Est. Patient 23:30:43 CDT Robbie Busby MD [facility] CPT-89753 Level 4 Est. Patient 10:30:43 CDT Robbie Busby MD [facility] CPT-50779 Level 3 Est. Patient 17:08:12 CDT Alex ALVAREZ [facility] CPT-39410 Level 4 Est. Patient 17:51:38 CDT Robbie Busby MD [facility] CPT-15069 Level 4 Est. Patient 14:00:21 CDT Robbie Busby MD [facility] CPT-29920 Level 4 Est. Patient 12:46:48 CDT Robbie Busby MD [facility]-25744 Level 4 Est. Patient 13:34:33 CDT Robbie Busby MD [facility] CPT-40859 Level 4 Est. Patient 16:58:28 CDT Robbie Busby MD [facility] CPT-17604 Level 3 Est. Patient 19:36:53 CDT Alex ALVAREZ [facility] CPT-93623 Level 3 Est. Patient 12:58:15 CDT Robbie Busby MD [facility] Procedures Code Procedure Name Date Entry Date Standard Description CPT-J1071 Depo Testosterone 200mg 09:01:06 CDT CPT-68264 Abx/Therapy Injection 09:01:06 CDT CPT-J1100 Decadron 8mg (Dexamethasone) 16:04:17 CDT CPT-J1040 Depo Medrol 80 mg (Methyl Prednisolone Acetate) 16:04: 17 CDT CPT-J1071 Depo Testosterone 200mg 08:56:46 CDT CPT-79273 Abx/Therapy Injection 08:56:45 CDT CPT-J1071 Depo Testosterone 200mg 08:26:27 CDT CPT-55476 Abx/Therapy Injection 08:26:27 CDT CPT-J1071 Depo Testosterone 200mg 10:27:10 CDT CPT-74828 Abx/Therapy Injection 10:27:10 CDT CPT-J1071 Depo Testosterone 200mg 16:10:29 EVP OPERATIONS CPT-43929 Abx/Therapy Injection 16:10:29 EVP OPERATIONS CPT-J1071 Depo Testosterone 200mg 16:13:47 EVP OPERATIONS CPT-09366 Abx/Therapy Injection 16:13:46 EVP OPERATIONS CPT-J1071 Depo Testosterone 200mg 15:33:58 EVP OPERATIONS CPT-67030 Abx/Therapy Injection 15:33:58 EVP OPERATIONS CPT-J1071 Depo Testosterone 200mg 09:38:36 EVP OPERATIONS CPT-21990 Abx/Therapy Injection 09:38:36 EVP OPERATIONS CPT-J1071 Depo Testosterone 200mg 10:22:56 EVP OPERATIONS CPT-59266 Abx/Therapy Injection 10:22:56 EVP OPERATIONS CPT-J1071 Depo Testosterone 200mg 15:40:23 CDT CPT-63714 Abx/Therapy Injection 15:40:23 CDT CPT-J1071 Depo Testosterone 200mg 14:20:43 CDT CPT-61504 Abx/Therapy Injection 14:20:43 CDT CPT-J1071 Depo Testosterone 200mg 14:17:22 CDT CPT-65496 Abx/Therapy Injection 14:17:22 CDT CPT-J1071 Depo Testosterone 200mg 09:03:53 CDT CPT-12923 Abx/Therapy Injection 09:03:53 CDT CPT-G0439 [facility] Annual Wellness Exam 16:47:44 CDT CPT-J1071 Depo Testosterone 200mg 09:06:28 CDT CPT-75013 Abx/Therapy Injection 09:06:28 CDT CPT-J1071 Depo Testosterone 200mg 08:30:01 CDT CPT-93688 Abx/Therapy Injection 08:30:01 CDT CPT-J1071 Depo Testosterone 200mg 08:24:00 CDT CPT-63037 Abx/Therapy Injection 08:24:00 CDT CPT-01635 Venipuncture Draw Fee 14:39:06 CDT CPT-63423 Ribs unilateral 2V - XRAY USE ONLY 12:10:11 CDT CPT-15570 First Vx - Ix admin for Medicare patients 16:32:53 CDT CPT-04237 Boostrix Intramuscular Suspension 5-2.5-18.5 16:32:53 CDT CPT-67950 TB Skin Test 11:42:28 CDT CPT-78782 Tdap 7yrs or > 11:42:28 CDT CPT-J0696 Rocephin 1000 mg (Ceftriaxone) 17:43:43 EVP OPERATIONS CPT-J1040 Depo Medrol 80 mg (Methyl Prednisolone Acetate) 17:43: 43 EVP OPERATIONS CPT-J1100 Decadron 8mg (Dexamethasone) 17:43:42 EVP OPERATIONS CPT-19018 Abx/Therapy Injection 17:43:42 EVP OPERATIONS CPT-17939 Abx/Therapy Injection 17:43:42 EVP OPERATIONS CPT-J1040 Depo Medrol 80 mg (Methyl Prednisolone Acetate) 09:43: 34 EVP OPERATIONS CPT-J1100 Decadron 8mg (Dexamethasone) 09:43:34 EVP OPERATIONS CPT-J0696 Rocephin 1gm Inj Solr 09:43:34 EVP OPERATIONS CPT-70752 Wound Culture - LAB USE ONLY 14:00:21 CDT CPT-I/D I/D Abscess 09:16:37 CDT CPT-10248 Venipuncture Draw Fee 15:20:23 CDT CPT-66070 Microalbumin - LAB USE ONLY 16:02:19 CDT CPT-24010 CBC - LAB USE ONLY 16:02:19 CDT CPT-20199 Venipuncture Draw Fee 16:02:19 CDT CPT-G0438 Initial Annual Wellness Exam 08:10:28 CDT CPT-54607 Venipuncture Draw Fee 13:07:17 CDT CPT-G0008 Administration of Influenza Virus Vaccine 16:09:59 CDT CPT-28303 Fluzone Quadrivalent Intramuscular Suspension 0.5 ML 16: 09:59 CDT CPT-28810 Spec Collection and Handling Fee 15:05:50 CDT
--- OUTSIDE RECORDS SUMMARY | 2018-04-18 13:10 | XMS REPORT | Clinical Summary ---
Author Author Admin, AKUA Organization [facility] Address Unknown Phone Unavailable Allergies, Adverse [...] Generic Name NDC Status Provider Patient Instruction BETADINE 10 % EXT SOLN wash with solution to treat follicultis POVIDONE-IODINE 26718596636 Active Robbie Busby MD Active KEFLEX 500 MG CAP 1 po TID x 10 days CEPHALEXIN 35657693901 No Longer Active Robbie Busby MD Active FIORICET 50-300-40 MG ORAL CAPS take 1 tab po qday prn migraines. [id number] 19374331561 Active Robbie Busby MD Active TOPIRAMATE 50 MG ORAL TABS take 1 tab po BID for migraines. TOPIRAMATE 00361732954 Active Robbie Busby MD Active HYDRALAZINE HCL 50 MG ORAL TABS TWO BY MOUTH THREE TIMES DAILY HYDRALAZINE HCL 00642236015 Active Robbie Busby MD Active MECLIZINE HCL 25 MG TAB one 4 times a day as needed for dizziness MECLIZINE HCL 09209753367 Active Robbie Busby MD Active TRILEPTAL 150 MG ORAL TABS 1 TAB PO Q HS OXCARBAZEPINE 43746080697 Active Robbie Busby MD Active TEMAZEPAM 15 MG ORAL CAPS 1 TAB PO Q HS TEMAZEPAM 16451516086 Active Robbie Busby MD Active ALPRAZOLAM 2 MG ORAL TABS 1 TAB PO BID ALPRAZOLAM 38590438061 Active Robbie Busby MD Active FENOFIBRATE 145 MG TABS Take one by mouth daily FENOFIBRATE 61930798136 No Longer Active Robbie Busby MD Active LAMISIL 125 MG ORAL PACK 1 TAB PO DAILY TERBINAFINE HCL 03101781314 Active Robbie Busby MD Active SPIRONOLACTONE 50 MG TABS 1 tablet by mouth twice a day SPIRONOLACTONE 04704820061 No Longer Active Robbie Busby MD Active HYDRALAZINE HCL 25 MG TABS 1 tablet by mouth tid for hypertension HYDRALAZINE HCL 50790386572 No Longer Active Robbie Busby MD Active VIIBRYD 40 MG TABS take 1 tab po qday for depression. VILAZODONE HCL 01069739820 No Longer Active Robbie Busby MD Active TERBINAFINE HCL 250 MG TABS 1 tab po qday for foot infection 2014 TERBINAFINE HCL 30004212077 No Longer Active Robbie Busby MD Active GABAPENTIN 300 MG CAPS 1 po q hs for nerve pain GABAPENTIN 94443808222 Active Robbie Busby MD Active FLONASE 50 MCG/ACT SUSP 1 spray each nostril twice daily for allergies and runny nose FLUTICASONE PROPIONATE 13291087790 Active Robbie Busby MD Active CHERATUSSIN AC 100-10 MG/5ML ORAL SOLN 7.5 mL PO q 4-6 hrs PRN cough GUAIFENESIN-CODEINE 95682064332 No Longer Active Robbie Busby MD Active AZITHROMYCIN 250 MG ORAL TABS 2 tablets PO today---then, 1 tablet PO daily x 4 more days (and 1 optional refill) AZITHROMYCIN 16599766403 No Longer Active Robbie Busby MD Active CLONIDINE HCL 0.2 MG ORAL TABS 1 TAB BY MOUTH EVERY 8 HOURS CLONIDINE HCL 48915501819 Active Robbie Busby MD Active HYDROCHLOROTHIAZIDE TABS Take one by mouth daily HYDROCHLOROTHIAZIDE TABS 10659134909 Active Alex ALVAREZ Active NORVASC 10 MG TAB 1 tablet by mouth daily AMLODIPINE BESYLATE 32070413218 No Longer Active Alex ALVAREZ Active PROTONIX 40 MG SOLR 1 po qday for acid reflux PANTOPRAZOLE SODIUM 86831155687 Active Robbie Busby MD Active IMDUR 60 MG TAB CR take 1 tab po qday for blood pressure ISOSORBIDE MONONITRATE Active oRbbie Busby MD Active ISOSORBIDE DINITRATE 30 MG TABS Take one by mouth daily ISOSORBIDE DINITRATE 19545917725 No Longer Active Robbie Busby MD Active VIIBRYD 40 MG TABS 1 TA B PO DAILY VILAZODONE HCL 81409095051 Active Robbie Busby MD Active LORATADINE 10 MG TABS 1 tablet by mouth daily for congestion and allergies. LORATADINE 19883748178 Active Robbie Busby MD Active ZITHROMAX 250 MG TAB 2 po today, then 1 po q days 2-5 AZITHROMYCIN 77788466648 No Longer Active Robbie Busby MD Active HYDROCODONE-ACETAMINOPHEN 5-325 MG TABS 1 tab by mouth BID prn back pain 2013 HYDROCODONE-ACETAMINOPHEN 51818718806 Active Robbie Busby MD Active [id number] 0.3 MG/24HR PTWK apply 2 patches q week for HTN CLONIDINE HCL 56253138159 Active Robbie Busby MD Active NITROSTAT 0.4 MG SUBL PRN NITROGLYCERIN 56413718677 Active Robbie Busby MD Active DOXAZOSIN MESYLATE 4 MG TABS Take one by mouth daily DOXAZOSIN MESYLATE 33700232557 Active Robbie Busby MD Active TOPROL XL 200 MG [id number] Take one by mouth daily METOPROLOL SUCCINATE 74589949359 Active Robbie Busby MD Active VENLAFAXINE HCL ER 150 MG [id number] Take one by mouth daily VENLAFAXINE HCL 52423058856 Active Robbie Busby MD Active LIPITOR 40 MG TABS Take one by mouth daily ATORVASTATIN CALCIUM 29235660700 Active Robbie Busby MD Active ISOSORBIDE DINITRATE 30 MG TABS Take one by mouth daily ISOSORBIDE DINITRATE 30 MG TABS 898762 ISOSORBIDE DINITRATE Inactive NORVASC 10 MG TAB 1 tablet by mouth daily NORVASC 10 MG TAB 214506 AMLODIPINE BESYLATE Inactive AZITHROMYCIN 250 MG ORAL TABS 2 tablets PO today---then, 1 tablet PO daily x 4 more days (and 1 optional refill) AZITHROMYCIN 250 MG ORAL TABS 7811713 AZITHROMYCIN Inactive CHERATUSSIN AC 100-10 MG/5ML ORAL SOLN 7.5 mL PO q 4-6 hrs PRN cough CHERATUSSIN AC 100-10 MG/5ML ORAL SOLN 817181 GUAIFENESIN- CODEINE Inactive VIIBRYD 40 MG TABS take 1 tab po qday for depression. VIIBRYD 40 MG TABS VILAZODONE HCL Inactive HYDRALAZINE HCL 25 MG TABS 1 tablet by mouth tid for hypertension HYDRALAZINE HCL 25 MG TABS 361692 HYDRALAZINE HCL Inactive SPIRONOLACTONE 50 MG TABS 1 tablet by mouth twice a day SPIRONOLACTONE 50 MG TABS 174825 SPIRONOLACTONE Inactive FENOFIBRATE 145 MG TABS Take one by mouth daily FENOFIBRATE 145 MG TABS 182619 FENOFIBRATE Inactive ZITHROMAX 250 MG TAB 2 po today, then 1 po q days 2-5 ZITHROMAX 250 MG TAB 1394352 AZITHROMYCIN Inactive TERBINAFINE HCL 250 MG TABS 1 tab po qday for foot infection 2014 TERBINAFINE HCL 250 MG TABS 911484 TERBINAFINE HCL Inactive KEFLEX 500 MG CAP 1 po TID x 10 days KEFLEX 500 MG CAP 043732 CEPHALEXIN Inactive Vital Signs Date Name Value [...] Outside labs entered on flowsheet - Chemistry blood glucose 98 mg/dL creatinine, serum 1.49 mg/dL potassium, serum 3.5 mmol/L sodium, serum 140 mmol/L Chart Maintenance: Outside labs entered on flowsheet - Hematology platelet count 285 10*3/mm3 hemoglobin, blood 14.0 g/dL leukocyte count, blood 8.9 10*3/mm3 Lab Report: Creatinine - Chemistry creatinine, serum 1.40 mg/dL 0.60-1.30 Lab Report: Lipid Panel, HEPATIC PANEL - Chemistry alanine aminotransferase (SGPT), serum 32 U/L 12-78 bilirubin, serum, total 0.70 mg/dL 0.00-1.00 cholesterol, serum 211 mg/dL 277-896 3418/08/31 triglyceride, serum, fasting 429 mg/dL 30-200 HDL cholesterol, serum 25 mg/dL 32-96 LDL cholesterol, serum 100 mg/dL 0-130 aspartate aminotransferase (SGOT), serum 19 U/L 15-37 Lab Report: Prostatic Specific Ag - Chemistry prostate specific antigen 1.31 ng/mL 0.00-4.00 Encounters Code Encounter Date Provider Facility CPT-34245 Level 4 Est. 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 Patient 14:50:10 CDT Robbie Busby MD [facility] CPT-52946 Level 4 Est. Patient 23:30:43 CDT Robbie Busby MD [facility] CPT-85182 Level 4 Est. Patient 10:30:43 CDT Robbie Busby MD [facility] CPT-81127 Level 3 Est. Patient 17:08:12 CDT [facility] CPT-70742 Level 4 Est. Patient 17:51:38 CDT Robbie Busby MD [facility] CPT-32945 Level 4 Est. Patient 14:00:21 CDT Robbie Busby MD [facility] CPT-09862 Level 4 Est. Patient 12:46:48 CDT Robbie Busby MD [facility] CPT-75303 Level 4 Est. Patient 13:34:33 CDT Robbie Busby MD [facility] CPT-78905 Level 4 Est. Patient 16:58:28 CDT Robbie Busby MD [facility] CPT-16194 Level 3 Est. Patient 19:36:53 CDT [facility] CPT-21432 Level 3 Est. Patient 12:58:15 CDT Robbie Busby MD [facility] Procedures Code Procedure Name Date Entry Date Standard Description CPT-G0008 Administration of Influenza Virus Vaccine 16:09:59 CDT CPT-09480 Fluzone Quadrivalent Intramuscular Suspension 0.5 ML 16: 09:59 CDT CPT-98720 Spec Collection and Handling Fee 15:05:50 CDT
--- OUTSIDE RECORDS SUMMARY | 2018-04-18 13:10 | XMS REPORT | Clinical Summary ---
Author Author Admin, Nicolas Organization [employer] Address Unknown Phone Unavailable Allergies, Adverse Reactions, [...] cap po bid x 10 days CEFDINIR 46997047200 Active Jackie Junior MA Active PREDNISONE 20 MG TAB 1 tablet twice daily for 2 days, then 1 tablet once daily for 2 days PREDNISONE 38773122007 Active Desmond Diaz DO Active NEXIUM 40 MG CPDR 1 cap by mouth daily ESOMEPRAZOLE MAGNESIUM 12673826657 Active Gali Negro Active PROTONIX 40 MG SOLR 1 po qday for acid reflux PANTOPRAZOLE SODIUM 84180679670 No Longer Active Gali Negro Active BETADINE 10 % EXT SOLN wash with solution to treat follicultis POVIDONE-IODINE 23849702281 Active Robbie Busby MD Active KEFLEX 500 MG CAP 1 po TID x 10 days CEPHALEXIN 20147445437 No Longer Active Robbie Busby MD Active FIORICET 50-300-40 MG ORAL CAPS take 1 tab po qday prn migraines. [id number] 79975900648 Active Robbie Busby MD Active TOPIRAMATE 50 MG ORAL TABS take 1 tab po BID for migraines. TOPIRAMATE 28263359612 Active Robbie Busby MD Active HYDRALAZINE HCL 50 MG ORAL TABS TWO BY MOUTH THREE TIMES DAILY HYDRALAZINE HCL 39976344253 Active Robbie Busby MD Active MECLIZINE HCL 25 MG TAB one 4 times a day as needed for dizziness MECLIZINE HCL 68319789503 Active Robbie Busby MD Active TRILEPTAL 150 MG ORAL TABS 1 TAB PO Q HS OXCARBAZEPINE 95249301998 Active Robbie Busby MD Active TEMAZEPAM 15 MG ORAL CAPS 1 TAB PO Q HS TEMAZEPAM 81518920932 Active Robbie Busby MD Active ALPRAZOLAM 2 MG ORAL TABS 1 TAB PO BID ALPRAZOLAM 76996783394 Active Robbie Busby MD Active FENOFIBRATE 145 MG TABS Take one by mouth daily FENOFIBRATE 53451555266 No Longer Active Robbie Busby MD Active LAMISIL 125 MG ORAL PACK 1 TAB PO DAILY TERBINAFINE HCL 79845678812 Active Robbie Busby MD Active SPIRONOLACTONE 50 MG TABS 1 tablet by mouth twice a day SPIRONOLACTONE 05127354166 No Longer Active Robbie Busby MD Active HYDRALAZINE HCL 25 MG TABS 1 tablet by mouth tid for hypertension HYDRALAZINE HCL 88145258195 No Longer Active Robbie Busby MD Active VIIBRYD 40 MG TABS take 1 tab po qday for depression. VILAZODONE HCL 41392600077 No Longer Active Robbie Busby MD Active TERBINAFINE HCL 250 MG TABS 1 tab po qday for foot infection 2014 TERBINAFINE HCL 91175968257 No Longer Active Robbie Busby MD Active GABAPENTIN 300 MG CAPS 1 po q hs for nerve pain GABAPENTIN 75521817948 Active Erin Garsia APRN Active FLONASE 50 MCG/ACT SUSP 1 spray each nostril twice daily for allergies and runny nose FLUTICASONE PROPIONATE 51701331967 Active Robbie Busby MD Active CHERATUSSIN AC 100-10 MG/5ML ORAL SOLN 7.5 mL PO q 4-6 hrs PRN cough GUAIFENESIN-CODEINE 10754421885 No Longer Active Robbie Busby MD Active AZITHROMYCIN 250 MG ORAL TABS 2 tablets PO today---then, 1 tablet PO daily x 4 more days (and 1 optional refill) AZITHROMYCIN 33012912259 No Longer Active Robbie Busby MD Active CLONIDINE HCL 0.2 MG ORAL TABS 1 TAB BY MOUTH EVERY 8 HOURS CLONIDINE HCL 92347163984 Active Robbie Busby MD Active HYDROCHLOROTHIAZIDE TABS Take one by mouth daily HYDROCHLOROTHIAZIDE TABS 13485353515 Active Alex ALVAREZ Active NORVASC 10 MG TAB 1 tablet by mouth daily AMLODIPINE BESYLATE 77051381459 No Longer Active Alex ALVAREZ Active IMDUR 60 MG TAB CR take 1 tab po qday for blood pressure ISOSORBIDE MONONITRATE Active Robbie Busby MD Active ISOSORBIDE DINITRATE 30 MG TABS Take one by mouth daily ISOSORBIDE DINITRATE 71102024348 No Longer Active Robbie Busby MD Active VIIBRYD 40 MG TABS 1 TA B PO DAILY VILAZODONE HCL 47535861111 Active Erin Garsia APRN Active LORATADINE 10 MG TABS 1 tablet by mouth daily for congestion and allergies. LORATADINE 76768865925 Active Robbie Busby MD Active ZITHROMAX 250 MG TAB 2 po today, then 1 po q days 2-5 AZITHROMYCIN 76695311852 No Longer Active Robbie Busby MD Active HYDROCODONE-ACETAMINOPHEN 5-325 MG TABS 1 tab by mouth BID prn back pain 2013 HYDROCODONE-ACETAMINOPHEN 54780195053 Active Robbie Busby MD Active [id number] 0.3 MG/24HR PTWK apply 2 patches q week for HTN CLONIDINE HCL 92676039598 Active Robbie Busby MD Active NITROSTAT 0.4 MG SUBL PRN NITROGLYCERIN 06991029360 Active Robbie Busby MD Active DOXAZOSIN MESYLATE 4 MG TABS Take one by mouth daily DOXAZOSIN MESYLATE 58323645216 Active Robbie Busby MD Active TOPROL XL 200 MG [id number] Take one by mouth daily METOPROLOL SUCCINATE 04423117938 Active Robbie Busby MD Active VENLAFAXINE HCL ER 150 MG [id number] Take one by mouth daily VENLAFAXINE HCL 91332985022 Active Robbie Busby MD Active LIPITOR 40 MG TABS Take one by mouth daily ATORVASTATIN CALCIUM 55955714083 Active Robbie Busby MD Active ISOSORBIDE DINITRATE 30 MG TABS Take one by mouth daily ISOSORBIDE DINITRATE 30 MG TABS 863387 ISOSORBIDE DINITRATE Inactive NORVASC 10 MG TAB 1 tablet by mouth daily NORVASC 10 MG TAB 854692 AMLODIPINE BESYLATE Inactive AZITHROMYCIN 250 MG ORAL TABS 2 tablets PO today---then, 1 tablet PO daily x 4 more days (and 1 optional refill) AZITHROMYCIN 250 MG ORAL TABS 9473460 AZITHROMYCIN Inactive CHERATUSSIN AC 100-10 MG/5ML ORAL SOLN 7.5 mL PO q 4-6 hrs PRN cough CHERATUSSIN AC 100-10 MG/5ML ORAL SOLN 650999 GUAIFENESIN- CODEINE Inactive VIIBRYD 40 MG TABS take 1 tab po qday for depression. VIIBRYD 40 MG TABS VILAZODONE HCL Inactive HYDRALAZINE HCL 25 MG TABS 1 tablet by mouth tid for hypertension HYDRALAZINE HCL 25 MG TABS 803388 HYDRALAZINE HCL Inactive SPIRONOLACTONE 50 MG TABS 1 tablet by mouth twice a day SPIRONOLACTONE 50 MG TABS 677805 SPIRONOLACTONE Inactive FENOFIBRATE 145 MG TABS Take one by mouth daily FENOFIBRATE 145 MG TABS 651558 FENOFIBRATE Inactive PROTONIX 40 MG SOLR 1 po qday for acid reflux PROTONIX 40 MG SOLR PANTOPRAZOLE SODIUM Inactive ZITHROMAX 250 MG TAB 2 po today, then 1 po q days 2-5 ZITHROMAX 250 MG TAB 0391592 AZITHROMYCIN Inactive TERBINAFINE HCL 250 MG TABS 1 tab po qday for foot infection 2014 TERBINAFINE HCL 250 MG TABS 252282 TERBINAFINE HCL Inactive KEFLEX 500 MG CAP 1 po TID x 10 days KEFLEX 500 MG CAP 181566 CEPHALEXIN Inactive Vital Signs Date Name Value [...] Acid - Chemistry sodium, serum 139 mmol/L 782-817 5394/04/22 carbon dioxide, venous blood 29.4 mmol/L 21.0-32.0 [...] PANEL - Chemistry cholesterol, serum 211 mg/dL 001-791 6894/08/31 triglyceride, serum, fasting 429 mg/dL 30-200 HDL [...] Negative Encounters Code Encounter Date Provider Facility CPT-58709 Level 3 Est. Patient 12:38:24 CDT Desmond Diaz DO [facility] CPT-83372 Level 4 Est. 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 Patient 14:50:10 CDT Robbie Busby MD [facility] CPT-88822 Level 4 Est. Patient 23:30:43 CDT Robbie Busby MD [facility] CPT-44677 Level 4 Est. Patient 10:30:43 CDT Robbie Busby MD [facility] CPT-59490 Level 3 Est. Patient 17:08:12 CDT Alex ALVAREZ [facility] CPT-61131 Level 4 Est. Patient 17:51:38 CDT Robbie Busby MD [facility] CPT-87024 Level 4 Est. Patient 14:00:21 CDT Robbie Busby MD [facility] CPT-16997 Level 4 Est. Patient 12:46:48 CDT Robbie Busby MD [facility] CPT-87455 Level 4 Est. Patient 13:34:33 CDT Robbie Busby MD [facility] CPT-81951 Level 4 Est. Patient 16:58:28 CDT Robbie Busby MD [facility] CPT-55381 Level 3 Est. Patient 19:36:53 CDT Alex ALVAREZ [facility] CPT-27889 Level 3 Est. Patient 12:58:15 CDT Robbie Busby MD [facility] Procedures Code Procedure Name Date Entry Date Standard Description CPT-96516 Venipuncture Draw Fee 13:07:17 CDT CPT-G0008 Administration of Influenza Virus Vaccine 16:09:59 CDT CPT-02208 Fluzone Quadrivalent Intramuscular Suspension 0.5 ML 16: 09:59 CDT CPT-32130 Spec Collection and Handling Fee 15:05:50 CDT
--- OUTSIDE RECORDS SUMMARY | 2018-04-18 13:12 | XMS REPORT | Clinical Summary ---
Author Author Admin, [facility] Organization [employer] Address Unknown Phone Unavailable Allergies, Adverse Reactions, [...] Low back pain, acute 724.2 Active Robbie uBsby MD Lumbago Low back pain, chronic 724.2 [...] unspecified sites URI 465.9 Active Rober Rodríguez CLIENT TECHNOLOGIES SPECIALIST Acute upper respiratory infections of unspecified [...] Status Provider Patient Instruction GUAIFENESIN 600 MG [id number] 1 tab po q am GUAIFENESIN 33535728480 No Longer Active Robbie Busby MD Active DIVALPROEX SODIUM ER 500 MG ORAL TABLET EXTENDED RELEASE 24 HOUR Once daily DIVALPROEX SODIUM 26248373324 Active Robbie Busby MD Active DEPO-TESTOSTERONE 200 MG/ML IM SOLN 1 IM Injections every 2 weeks for low testosterone TESTOSTERONE CYPIONATE 51195521615 Active Zulema Blank LPN Active CYCLOBENZAPRINE HCL 10 MG ORAL TABS 1 po TID PRN muscle spasm/pain for 10 days CYCLOBENZAPRINE HCL 79782334316 Active JONATHAN Moncada Active FLUTICASONE PROPIONATE 50 MCG/ACT SUSP 2 sprays per nostril bid for 1 week, then 1 spray bid FLUTICASONE PROPIONATE 39748883536 Active Jillina Franeha CLIENT TECHNOLOGIES SPECIALIST Active HYDRALAZINE HCL 25 MG ORAL TABS Take 1 tab BID. HYDRALAZINE HCL 30673389181 Active Jillina Anne CLIENT TECHNOLOGIES SPECIALIST Active VITAMIN D3 53661 UNIT ORAL TABS 2 po weekly CHOLECALCIFEROL 74059645613 Active Robbie Busby MD Active OXYCODONE HCL ER 10 MG ORAL T12A 1 tab po 3 times qd. OXYCODONE HCL 90608271589 Active Robbie Busby MD Active NITROSTAT 0.4 MG SUBL PRN NITROGLYCERIN 25348162258 No Longer Active Robbie Busby MD Active LORATADINE 10 MG TABS 1 tablet by mouth daily for congestion and allergies. LORATADINE 64876253545 No Longer Active Robbie Busby MD Active FLONASE 50 MCG/ACT SUSP 1 spray each nostril twice daily for allergies and runny nose FLUTICASONE PROPIONATE 41283601386 No Longer Active Robbie Busby MD Active FIORICET 50-300-40 MG ORAL CAPS take 1 tab po qday prn migraines. [id number] 33697456162 No Longer Active Robbie Busby MD Active VITAMIN D3 13773 UNIT CAPS 2 CAPS PO WEEKLY CHOLECALCIFEROL 40456091094 No Longer Active Robbie Busby MD Active CYCLOBENZAPRINE HCL 10 MG TABS 1 tablet by mouth three times daily as needed for muscle spasm/pain for 10 days CYCLOBENZAPRINE HCL 11762223065 No Longer Active Robbie Busby MD Active PREDNISONE 20 MG TAB take 3 tabs daily for 3 days, 2 tabs daily for 3 days, 1 tab daily for 3 days, 1/2 tab daily for 4 days PREDNISONE 90547472613 No Longer Active Erin Garsia APRN Active CLONIDINE HCL 0.2 MG ORAL TABS 1 TAB BY MOUTH EVERY 8 HOURS 12/29 CLONIDINE HCL 85456432319 No Longer Active Erin Garsia APRN Active MECLIZINE HCL 25 MG TAB one 4 times a day as needed for dizziness MECLIZINE HCL 81184031200 No Longer Active Erin Garsia APRN Active SPIRONOLACTONE 25 MG TAB 4 tablets by mouth daily SPIRONOLACTONE 56032309293 No Longer Active Erin Garsia APRN Active LEVAQUIN 500 MG TAB 1 tablet by mouth daily for 7 days LEVOFLOXACIN 74419064409 No Longer Active Erin Garsia APRN Active BACTRIM DS 800-160 MG TAB 1 tab by mouth twice daily TRIMETHOPRIM-SULFAMETHOXAZOLE 42422390492 No Longer Active Robbie Busby MD Active HYDRALAZINE HCL 50 MG ORAL TABS TWO BY MOUTH THREE TIMES DAILY HYDRALAZINE HCL 26736241847 No Longer Active Jillld Rodríguez APRN Active HYDROCODONE-ACETAMINOPHEN 5-325 MG TABS 1 tab by mouth BID prn back pain 2013 HYDROCODONE-ACETAMINOPHEN 97117835974 No Longer Active Jillina Zulemal CLIENT TECHNOLOGIES SPECIALIST Active HYDROCHLOROTHIAZIDE TABS Take one by mouth daily HYDROCHLOROTHIAZIDE TABS 20559938636 No Longer Active Jillina Frakierstenl CLIENT TECHNOLOGIES SPECIALIST Active LAMISIL 125 MG ORAL PACK 1 TAB PO DAILY TERBINAFINE HCL 90684774028 No Longer Active Jillina Frakierstenl CLIENT TECHNOLOGIES SPECIALIST Active TRILEPTAL 150 MG ORAL TABS 1 TAB PO Q HS OXCARBAZEPINE 72863257996 No Longer Active Jillina Frakierstenl CLIENT TECHNOLOGIES SPECIALIST Active BETADINE 10 % EXT SOLN wash with solution to treat follicultis POVIDONE-IODINE 77869446381 No Longer Active Rober Rodríguez APRN Active NYSTATIN 278551 UNIT/ML M/T SUSP 5mL po QID x 10 days NYSTATIN 34249815240 No Longer Active Erin Garsia APRN Active PREDNISONE 20 MG TAB 1 tablet twice daily for 2 days, then 1 tablet once daily for 2 days PREDNISONE 39587137658 No Longer Active Robbie Busby MD Active CEFDINIR 300 MG ORAL CAPS Take 1 cap po bid x 10 days CEFDINIR 28267339664 No Longer Active Robbie Busby MD Active AMLODIPINE BESYLATE 10 MG TABS 1 tablet by mouth daily AMLODIPINE BESYLATE 61535990825 Active Robbie Busby MD Active CARVEDILOL 25 MG TABS 1 & 1/2 TAB po BID CARVEDILOL 42621617377 Active Robbie Busby MD Active NEXIUM 40 MG CPDR 1 cap by mouth daily ESOMEPRAZOLE MAGNESIUM 94834389184 Active Robbie Busby MD Active PROTONIX 40 MG SOLR 1 po qday for acid reflux PANTOPRAZOLE SODIUM 38514083750 No Longer Active Gali Raida Active KEFLEX 500 MG CAP 1 po TID x 10 days CEPHALEXIN 00085748077 No Longer Active Robbie Busby MD Active TOPIRAMATE 50 MG ORAL TABS take 1 tab po BID for migraines. TOPIRAMATE 64117560338 Active Robbie Busby MD Active TEMAZEPAM 15 MG ORAL CAPS 1 TAB PO Q HS TEMAZEPAM 29551118143 Active Robbie Busby MD Active ALPRAZOLAM 2 MG ORAL TABS 1 TAB PO BID ALPRAZOLAM 02274720821 Active Robbie Busby MD Active FENOFIBRATE 145 MG TABS Take one by mouth daily FENOFIBRATE 79777107765 No Longer Active Robbie Busby MD Active SPIRONOLACTONE 50 MG TABS 1 tablet by mouth twice a day SPIRONOLACTONE 39635825800 No Longer Active Robbie Busby MD Active HYDRALAZINE HCL 25 MG TABS 1 tablet by mouth tid for hypertension HYDRALAZINE HCL 61482386448 No Longer Active Robbie Busby MD Active VIIBRYD 40 MG TABS take 1 tab po qday for depression. VILAZODONE HCL 20868343352 No Longer Active Robbie Busby MD Active TERBINAFINE HCL 250 MG TABS 1 tab po qday for foot infection 2014 TERBINAFINE HCL 28855612613 No Longer Active Robbie Busby MD Active GABAPENTIN 300 MG CAPS 1 po q hs for nerve pain GABAPENTIN 28528955285 Active Robbie Busby MD Active CHERATUSSIN AC 100-10 MG/5ML ORAL SOLN 7.5 mL PO q 4-6 hrs PRN cough GUAIFENESIN-CODEINE 71151436617 No Longer Active Robbie Busby MD Active AZITHROMYCIN 250 MG ORAL TABS 2 tablets PO today---then, 1 tablet PO daily x 4 more days (and 1 optional refill) AZITHROMYCIN 62018448085 No Longer Active Robbie Busby MD Active NORVASC 10 MG TAB 1 tablet by mouth daily AMLODIPINE BESYLATE 01166538256 No Longer Active Alex ALVAREZ Active IMDUR 60 MG TAB CR take 1 tab po qday for blood pressure ISOSORBIDE MONONITRATE Active Robbie Busby MD Active ISOSORBIDE DINITRATE 30 MG TABS Take one by mouth daily ISOSORBIDE DINITRATE 73799004683 No Longer Active Robbie Busby MD Active VIIBRYD 40 MG TABS 1 TA B PO DAILY VILAZODONE HCL 95156867356 Active Robbie Busby MD Active ZITHROMAX 250 MG TAB 2 po today, then 1 po q days 2-5 AZITHROMYCIN 23734253173 No Longer Active Robbie Busby MD Active [id number]-9 0.3 MG/24HR PTWK apply 2 patches q week for HTN CLONIDINE HCL 15503339378 Active Robbie Busby MD Active DOXAZOSIN MESYLATE 4 MG TABS Take one by mouth daily DOXAZOSIN MESYLATE 57393849956 Active Robbie Busby MD Active TOPROL XL 200 MG [id number] Take one by mouth daily METOPROLOL SUCCINATE 15768902935 Active Robbie Busby MD Active VENLAFAXINE HCL ER 150 MG [id number] Take one by mouth daily VENLAFAXINE HCL 91913932673 Active Robbie Busby MD Active LIPITOR 40 MG TABS Take one by mouth daily ATORVASTATIN CALCIUM 15863155027 Active Robbie Busby MD Active ISOSORBIDE DINITRATE 30 MG TABS Take one by mouth daily ISOSORBIDE DINITRATE 30 MG TABS 057489 ISOSORBIDE DINITRATE Inactive NORVASC 10 MG TAB 1 tablet by mouth daily NORVASC 10 MG TAB 740127 AMLODIPINE BESYLATE Inactive AZITHROMYCIN 250 MG ORAL TABS 2 tablets PO today---then, 1 tablet PO daily x 4 more days (and 1 optional refill) AZITHROMYCIN 250 MG ORAL TABS 446809 AZITHROMYCIN Inactive CHERATUSSIN AC 100-10 MG/5ML ORAL SOLN 7.5 mL PO q 4-6 hrs PRN cough CHERATUSSIN AC 100-10 MG/5ML ORAL SOLN 954310 GUAIFENESIN- CODEINE Inactive VIIBRYD 40 MG TABS take 1 tab po qday for depression. VIIBRYD 40 MG TABS VILAZODONE HCL Inactive HYDRALAZINE HCL 25 MG TABS 1 tablet by mouth tid for hypertension HYDRALAZINE HCL 25 MG TABS 104580 HYDRALAZINE HCL Inactive SPIRONOLACTONE 50 MG TABS 1 tablet by mouth twice a day SPIRONOLACTONE 50 MG TABS 354195 SPIRONOLACTONE Inactive FENOFIBRATE 145 MG TABS Take one by mouth daily FENOFIBRATE 145 MG TABS 309787 FENOFIBRATE Inactive PROTONIX 40 MG SOLR 1 po qday for acid reflux PROTONIX 40 MG SOLR 942598 PANTOPRAZOLE SODIUM Inactive CEFDINIR 300 MG ORAL CAPS Take 1 cap po bid x 10 days CEFDINIR 300 MG ORAL CAPS 788476 CEFDINIR Inactive PREDNISONE 20 MG TAB 1 tablet twice daily for 2 days, then 1 tablet once daily for 2 days PREDNISONE 20 MG TAB 866086 PREDNISONE Inactive NYSTATIN 662102 UNIT/ML M/T SUSP 5mL po QID x 10 days NYSTATIN 452042 UNIT/ML M/T SUSP 213102 NYSTATIN Inactive BETADINE 10 % EXT SOLN wash with solution to treat follicultis BETADINE 10 % EXT SOLN 2928554 POVIDONE-IODINE Inactive TRILEPTAL 150 MG ORAL TABS 1 TAB PO Q HS TRILEPTAL 150 MG ORAL TABS 165436 OXCARBAZEPINE Inactive LAMISIL 125 MG ORAL PACK 1 TAB PO DAILY LAMISIL 125 MG ORAL PACK TERBINAFINE HCL Inactive HYDROCHLOROTHIAZIDE TABS Take one by mouth daily HYDROCHLOROTHIAZIDE TABS HYDROCHLOROTHIAZIDE TABS Inactive HYDROCODONE-ACETAMINOPHEN 5-325 MG TABS 1 tab by mouth BID prn back pain 2013 HYDROCODONE-ACETAMINOPHEN 5-325 MG TABS 060317 HYDROCODONE -ACETAMINOPHEN Inactive HYDRALAZINE HCL 50 MG ORAL TABS TWO BY MOUTH THREE TIMES DAILY HYDRALAZINE HCL 50 MG ORAL TABS 834193 HYDRALAZINE HCL Inactive LEVAQUIN 500 MG TAB 1 tablet by mouth daily for 7 days LEVAQUIN 500 MG TAB 591096 LEVOFLOXACIN Inactive SPIRONOLACTONE 25 MG TAB 4 tablets by mouth daily SPIRONOLACTONE 25 MG TAB 626077 SPIRONOLACTONE Inactive MECLIZINE HCL 25 MG TAB one 4 times a day as needed for dizziness MECLIZINE HCL 25 MG TAB 563870 MECLIZINE HCL Inactive CLONIDINE HCL 0.2 MG ORAL TABS 1 TAB BY MOUTH EVERY 8 HOURS 12/29 CLONIDINE HCL 0.2 MG ORAL TABS 502672 CLONIDINE HCL Inactive CYCLOBENZAPRINE HCL 10 MG TABS 1 tablet by mouth three times daily as needed for muscle spasm/pain for 10 days CYCLOBENZAPRINE HCL 10 MG TABS 380559 CYCLOBENZAPRINE HCL Inactive VITAMIN D3 78051 UNIT CAPS 2 CAPS PO WEEKLY VITAMIN D3 54388 UNIT CAPS CHOLECALCIFEROL Inactive FIORICET 50-300-40 MG ORAL CAPS take 1 tab po qday prn migraines. FIORICET 50-300-40 MG ORAL CAPS 279522 [id number] Inactive FLONASE 50 MCG/ACT SUSP 1 spray each nostril twice daily for allergies and runny nose FLONASE 50 MCG/ACT SUSP 0148768 FLUTICASONE PROPIONATE Inactive LORATADINE 10 MG TABS 1 tablet by mouth daily for congestion and allergies. LORATADINE 10 MG TABS 084631 LORATADINE Inactive NITROSTAT 0.4 MG SUBL PRN NITROSTAT 0.4 MG SUBL 738455 NITROGLYCERIN Inactive GUAIFENESIN 600 MG [id number] 1 tab po q am GUAIFENESIN 600 MG [id number] GUAIFENESIN Inactive ZITHROMAX 250 MG TAB 2 po today, then 1 po q days 2-5 ZITHROMAX 250 MG TAB 547279 AZITHROMYCIN Inactive TERBINAFINE HCL 250 MG TABS 1 tab po qday for foot infection 2014 TERBINAFINE HCL 250 MG TABS 591427 TERBINAFINE HCL Inactive KEFLEX 500 MG CAP 1 po TID x 10 days KEFLEX 500 MG CAP 521604 CEPHALEXIN Inactive BACTRIM DS 800-160 MG TAB 1 tab by mouth twice daily BACTRIM DS 800-160 MG TAB 485790 TRIMETHOPRIM-SULFAMETHOXAZOLE Inactive PREDNISONE 20 MG TAB take 3 tabs daily for 3 days, 2 tabs daily for 3 days, 1 tab daily for 3 days, 1/2 tab daily for 4 days PREDNISONE 20 MG TAB 969717 PREDNISONE Inactive Advance Directives Directive Description Start [...] AUTO - Chemistry sodium, serum 142 mmol/L 656-054 9164/07/17 carbon dioxide, venous blood 28.2 mmol/L 21.0-32.0 [...] % 11.0-15.0 platelet count 185 THOUSAND/UL 10*3/mm3 745-487 4598/04/14 mean platelet volume 10.9 fL 7.5-12.5 Lab Report: LIPID PANEL, TSH/899, T4, FREE/866 - Chemistry cholesterol, serum 220 mg/dL 698-908 2682/04/14 HDL cholesterol, serum 30 mg/dL > OR=40 [...] 1.80 ng/mL 0.00-4.00 Lab Report: VITAMIN D, 25-HYDROXY/39880 - Chemistry vitamin D 25-hydroxy, serum 25 ng/mL 30-100 Office Visit: Confusion, dizziness after fall - Basic LDL target level 130 mg/dL Office Visit: Confusion, dizziness after fall - Chemistry HDL cholesterol, serum, target level 40 mg/dL triglyceride, target level 150 mg/dL cholesterol, target level 200 mg/dL Encounters Code Encounter Date Provider Facility CPT-34190 Level 3 Est. Patient 15:40:49 CDT Robbie Busby MD [facility] CPT-40019 Level 4 Est. Patient 15:18:19 CDT Robbie Busby MD [facility] CPT-17055 Level 3 Est. Patient 09:00:37 CDT Rober Rodríguez [facility] [place] CPT-82807 Level 3 Est. Patient 16:07:10 CDT Robbie Busby MD [facility] CPT-81370 Level 4 Est. Patient 11:56:16 CDT Erin Garsia [facility] [place] CPT-62054 Level 3 Est. Patient 17:48:02 CDT Robbie Busby MD [facility] CPT-34851 Level 4 Est. Patient 12:00:49 FURNITURE DIPPER Rober Rodríguez [facility] [place] CPT-37025 Level 3 Est. Patient 09:16:37 CDT Robbie Busby MD [facility] CPT-59455 Level 3 Est. Patient 19:38:43 CDT Robbie Busby MD [facility] CPT-08685 Level 3 Est. Patient 11:53:38 CDT Robbie Busby MD [facility]-45182 Level 4 Est. Patient 12:52:22 CDT Rober Rodríguez APRN [facility] CPT-06476 Level 4 Est. Patient 22:55:17 CDT Robbie Busby MD [facility]-46646 Level 3 Est. Patient 12:38:24 CDT Desmond Diaz DO [facility] CPT-94680 Level 4 Est. Patient 11:25:03 FURNITURE DIPPER Robbie Busby MD [facility]-01891 Level 4 Est. Patient 14:50:10 CDT Robbie Busby MD [facility]-27150 Level 4 Est. Patient 23:30:43 CDT Robbie Busby MD [facility] CPT-31189 Level 4 Est. Patient 10:30:43 CDT Robbie Busby MD [facility] CPT-48139 Level 3 Est. Patient 17:08:12 CDT Alex ALVAREZ [facility] CPT-68188 Level 4 Est. Patient 17:51:38 CDT Robbie Busby MD [facility] CPT-66466 Level 4 Est. Patient 14:00:21 CDT Robbie Busby MD [facility] CPT-12186 Level 4 Est. Patient 12:46:48 CDT Robbie Busby MD [facility]-25122 Level 4 Est. Patient 13:34:33 CDT Robbie Busby MD [facility]-94038 Level 4 Est. Patient 16:58:28 CDT Robbie Busby MD [facility]-73803 Level 3 Est. Patient 19:36:53 CDT Alex ALVAREZ [facility] CPT-22840 Level 3 Est. Patient 12:58:15 CDT Robbie Busby MD [facility] Procedures Code Procedure Name Date Entry Date Standard Description CPT-J1071 Depo Testosterone 200mg 14:17:22 CDT CPT-57158 Abx/Therapy Injection 14:17:22 CDT CPT-J1071 Depo Testosterone 200mg 09:03:53 CDT CPT-75648 Abx/Therapy Injection 09:03:53 CDT CPT-G0439 [facility] Exam 16:47:44 CDT CPT-J1071 Depo Testosterone 200mg 09:06:28 CDT CPT-31778 Abx/Therapy Injection 09:06:28 CDT CPT-J1071 Depo Testosterone 200mg 08:30:01 CDT CPT-41146 Abx/Therapy Injection 08:30:01 CDT CPT-J1071 Depo Testosterone 200mg 08:24:00 CDT CPT-86816 Abx/Therapy Injection 08:24:00 CDT CPT-11694 Venipuncture Draw Fee 14:39:06 CDT CPT-97080 Ribs unilateral 2V - XRAY USE ONLY 12:10:11 CDT CPT-88457 First Vx - Ix admin for Medicare patients 16:32:53 CDT CPT-27464 Boostrix Intramuscular Suspension 5-2.5-18.5 16:32:53 CDT CPT-97327 TB Skin Test 11:42:28 CDT CPT-03362 Tdap 7yrs or > 11:42:28 CDT CPT-J0696 Rocephin 1000 mg (Ceftriaxone) 17:43:43 FURNITURE DIPPER CPT-J1040 Depo Medrol 80 mg (Methyl Prednisolone Acetate) 17:43: 43 FURNITURE DIPPER CPT-J1100 Decadron 8mg (Dexamethasone) 17:43:42 FURNITURE DIPPER CPT-61136 Abx/Therapy Injection 17:43:42 FURNITURE DIPPER CPT-95984 Abx/Therapy Injection 17:43:42 FURNITURE DIPPER CPT-J1040 Depo Medrol 80 mg (Methyl Prednisolone Acetate) 09:43: 34 FURNITURE DIPPER CPT-J1100 Decadron 8mg (Dexamethasone) 09:43:34 FURNITURE DIPPER CPT-J0696 Rocephin 1gm Inj Solr 09:43:34 FURNITURE DIPPER CPT-59484 Wound Culture - LAB USE ONLY 14:00:21 CDT CPT-I/D I/D Abscess 09:16:37 CDT CPT-48567 Venipuncture Draw Fee 15:20:23 CDT CPT-30757 Microalbumin - LAB USE ONLY 16:02:19 CDT CPT-51443 CBC - LAB USE ONLY 16:02:19 CDT CPT-56579 Venipuncture Draw Fee 16:02:19 CDT CPT-G0438 Initial Annual Wellness Exam 08:10:28 CDT CPT-01945 Venipuncture Draw Fee 13:07:17 CDT CPT-G0008 Administration of Influenza Virus Vaccine 16:09:59 CDT CPT-32728 Fluzone Quadrivalent Intramuscular Suspension 0.5 ML 16: 09:59 CDT CPT-78015 Spec Collection and Handling Fee 15:05:50 CDT
--- OUTSIDE RECORDS SUMMARY | 2018-04-18 13:13 | XMS REPORT | Clinical Summary ---
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 Other malignant secondary hypertension Tachycardia 785.0 [...] Garsia APRN Headache Back pain 724.5 Active rEin Garsia APRN Backache, unspecified Medication List Medication Instructions Start Date Stop Date Generic Name NDC Status Provider Patient Instruction CYCLOBENZAPRINE HCL 10 MG TABS 1 tablet by mouth three times daily as needed for muscle spasm/pain for 10 days CYCLOBENZAPRINE HCL 58096461956 Active Erin Garsia APRN Active PREDNISONE 20 MG TAB take 3 tabs daily for 3 days, 2 tabs daily for 3 days, 1 tab daily for 3 days, 1/2 tab daily for 4 days PREDNISONE 39289441728 No Longer Active Erin Garsia APRN Active CLONIDINE HCL 0.2 MG ORAL TABS 1 TAB BY MOUTH EVERY 8 HOURS 12/29 CLONIDINE HCL 67900013090 No Longer Active Erin Garsia APRN Active MECLIZINE HCL 25 MG TAB one 4 times a day as needed for dizziness MECLIZINE HCL 89219625711 No Longer Active Erin Garsia APRN Active SPIRONOLACTONE 25 MG TAB 4 tablets by mouth daily SPIRONOLACTONE 54360935589 No Longer Active Erin Garsia APRN Active LEVAQUIN 500 MG TAB 1 tablet by mouth daily for 7 days LEVOFLOXACIN 82185322091 No Longer Active Erin Garsia APRN Active BACTRIM DS 800-160 MG TAB 1 tab by mouth twice daily TRIMETHOPRIM-SULFAMETHOXAZOLE 96010633152 No Longer Active Robbie Busby MD Active HYDRALAZINE HCL 50 MG ORAL TABS TWO BY MOUTH THREE TIMES DAILY HYDRALAZINE HCL 32016095365 No Longer Active Jillina Frazell 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 MOLDING OPERATOR Active HYDROCODONE-ACETAMINOPHEN 5-325 MG TABS 1 tab by mouth BID prn back pain 2013 HYDROCODONE-ACETAMINOPHEN 93531426334 No Longer Active Jillina Frazell PLASTIC MOLDING OPERATOR Active HYDROCHLOROTHIAZIDE TABS Take one by mouth daily HYDROCHLOROTHIAZIDE TABS 20736434689 No Longer Active Jillina Frazell PLASTIC MOLDING OPERATOR Active LAMISIL 125 MG ORAL PACK 1 TAB PO DAILY TERBINAFINE HCL 60687304254 No Longer Active Jillina Frazell PLASTIC MOLDING OPERATOR Active TRILEPTAL 150 MG ORAL TABS 1 TAB PO Q HS OXCARBAZEPINE 53083462760 No Longer Active Jillina Frazell PLASTIC MOLDING OPERATOR Active BETADINE 10 % EXT SOLN wash with solution to treat follicultis POVIDONE-IODINE 50269204987 No Longer Active Jillina Frazell PLASTIC MOLDING OPERATOR Active NYSTATIN 687530 UNIT/ML M/T SUSP 5mL po QID x 10 days NYSTATIN 55114771781 No Longer Active Erin Garsia APRN Active PREDNISONE 20 MG TAB 1 tablet twice daily for 2 days, then 1 tablet once daily for 2 days PREDNISONE 72598371951 No Longer Active Robbie Busby MD Active CEFDINIR 300 MG ORAL CAPS Take 1 cap po bid x 10 days CEFDINIR 27344441072 No Longer Active Robbie Busby MD Active AMLODIPINE BESYLATE 10 MG TABS 1 tablet by mouth daily AMLODIPINE BESYLATE 70443820537 Active Robbie Busby MD Active CARVEDILOL 25 MG TABS 1 & 1/2 TAB po BID CARVEDILOL 90884850090 Active Robbie Busby MD Active VITAMIN D3 70456 UNIT CAPS 2 CAPS PO WEEKLY CHOLECALCIFEROL 71637217882 Active Erin Garsia APRN Active NEXIUM 40 MG CPDR 1 cap by mouth daily ESOMEPRAZOLE MAGNESIUM 26396034233 Active Robbie Busby MD Active PROTONIX 40 MG SOLR 1 po qday for acid reflux PANTOPRAZOLE SODIUM 56114122463 No Longer Active Gali Negro Active KEFLEX 500 MG CAP 1 po TID x 10 days CEPHALEXIN 00115727251 No Longer Active Robbie Busby MD Active FIORICET 50-300-40 MG ORAL CAPS take 1 tab po qday prn migraines. [id number] 27481764836 Active Robbie Busby MD Active TOPIRAMATE 50 MG ORAL TABS take 1 tab po BID for migraines. TOPIRAMATE 91699693917 Active Robbie Busby MD Active TEMAZEPAM 15 MG ORAL CAPS 1 TAB PO Q HS TEMAZEPAM 93633857610 Active Robbie Busby MD Active ALPRAZOLAM 2 MG ORAL TABS 1 TAB PO BID ALPRAZOLAM 41684993674 Active Robbie Busby MD Active FENOFIBRATE 145 MG TABS Take one by mouth daily FENOFIBRATE 28399947045 No Longer Active Robbie Busby MD Active SPIRONOLACTONE 50 MG TABS 1 tablet by mouth twice a day SPIRONOLACTONE 09678618890 No Longer Active Robbie Busby MD Active HYDRALAZINE HCL 25 MG TABS 1 tablet by mouth tid for hypertension HYDRALAZINE HCL 15019552233 No Longer Active Robbie Busby MD Active VIIBRYD 40 MG TABS take 1 tab po qday for depression. VILAZODONE HCL 48193318810 No Longer Active Robbie Busby MD Active TERBINAFINE HCL 250 MG TABS 1 tab po qday for foot infection 2014 TERBINAFINE HCL 97139989663 No Longer Active Robbie Busby MD Active GABAPENTIN 300 MG CAPS 1 po q hs for nerve pain GABAPENTIN 02514665453 Active Robbie Busby MD Active FLONASE 50 MCG/ACT SUSP 1 spray each nostril twice daily for allergies and runny nose FLUTICASONE PROPIONATE 95343656015 Active Robbie Busby MD Active CHERATUSSIN AC 100-10 MG/5ML ORAL SOLN 7.5 mL PO q 4-6 hrs PRN cough GUAIFENESIN-CODEINE 45890079799 No Longer Active Robbie Busby MD Active AZITHROMYCIN 250 MG ORAL TABS 2 tablets PO today---then, 1 tablet PO daily x 4 more days (and 1 optional refill) AZITHROMYCIN 65754704906 No Longer Active Robbie Busby MD Active NORVASC 10 MG TAB 1 tablet by mouth daily AMLODIPINE BESYLATE 26660521235 No Longer Active Alex ALVAREZ Active IMDUR 60 MG TAB CR take 1 tab po qday for blood pressure ISOSORBIDE MONONITRATE Active Robbie Busby MD Active ISOSORBIDE DINITRATE 30 MG TABS Take one by mouth daily ISOSORBIDE DINITRATE 24199799410 No Longer Active Robbie Busby MD Active VIIBRYD 40 MG TABS 1 TA B PO DAILY VILAZODONE HCL 61875255418 Active Robbie Busby MD Active LORATADINE 10 MG TABS 1 tablet by mouth daily for congestion and allergies. LORATADINE 76104291944 Active Robbie Busby MD Active ZITHROMAX 250 MG TAB 2 po today, then 1 po q days 2-5 AZITHROMYCIN 74776557551 No Longer Active Robbie Busby MD Active [id number]-9 0.3 MG/24HR PTWK apply 2 patches q week for HTN CLONIDINE HCL 14212257136 Active Robbie Busby MD Active NITROSTAT 0.4 MG SUBL PRN NITROGLYCERIN 48310602804 Active Robbie Busby MD Active DOXAZOSIN MESYLATE 4 MG TABS Take one by mouth daily DOXAZOSIN MESYLATE 08638660600 Active Erin Garsia PLASTIC MOLDING OPERATOR Active TOPROL XL 200 MG [id number] Take one by mouth daily METOPROLOL SUCCINATE 61385677571 Active Robbie Busby MD Active VENLAFAXINE HCL ER 150 MG [id number] Take one by mouth daily VENLAFAXINE HCL 15278388530 Active Robbie Busby MD Active LIPITOR 40 MG TABS Take one by mouth daily ATORVASTATIN CALCIUM 00937320401 Active Robbie Busby MD Active ISOSORBIDE DINITRATE 30 MG TABS Take one by mouth daily ISOSORBIDE DINITRATE 30 MG TABS 923850 ISOSORBIDE DINITRATE Inactive NORVASC 10 MG TAB 1 tablet by mouth daily NORVASC 10 MG TAB 919528 AMLODIPINE BESYLATE Inactive AZITHROMYCIN 250 MG ORAL TABS 2 tablets PO today---then, 1 tablet PO daily x 4 more days (and 1 optional refill) AZITHROMYCIN 250 MG ORAL TABS 5863368 AZITHROMYCIN Inactive CHERATUSSIN AC 100-10 MG/5ML ORAL SOLN 7.5 mL PO q 4-6 hrs PRN cough CHERATUSSIN AC 100-10 MG/5ML ORAL SOLN 791341 GUAIFENESIN- CODEINE Inactive VIIBRYD 40 MG TABS take 1 tab po qday for depression. VIIBRYD 40 MG TABS VILAZODONE HCL Inactive HYDRALAZINE HCL 25 MG TABS 1 tablet by mouth tid for hypertension HYDRALAZINE HCL 25 MG TABS 993182 HYDRALAZINE HCL Inactive SPIRONOLACTONE 50 MG TABS 1 tablet by mouth twice a day SPIRONOLACTONE 50 MG TABS 020829 SPIRONOLACTONE Inactive FENOFIBRATE 145 MG TABS Take one by mouth daily FENOFIBRATE 145 MG TABS 271225 FENOFIBRATE Inactive PROTONIX 40 MG SOLR 1 po qday for acid reflux PROTONIX 40 MG SOLR 853848 PANTOPRAZOLE SODIUM Inactive CEFDINIR 300 MG ORAL CAPS Take 1 cap po bid x 10 days CEFDINIR 300 MG ORAL CAPS 496667 CEFDINIR Inactive PREDNISONE 20 MG TAB 1 tablet twice daily for 2 days, then 1 tablet once daily for 2 days PREDNISONE 20 MG TAB 730937 PREDNISONE Inactive NYSTATIN 440665 UNIT/ML M/T SUSP 5mL po QID x 10 days NYSTATIN 621238 UNIT/ML M/T SUSP 015741 NYSTATIN Inactive BETADINE 10 % EXT SOLN wash with solution to treat follicultis BETADINE 10 % EXT SOLN 9798121 POVIDONE-IODINE Inactive TRILEPTAL 150 MG ORAL TABS 1 TAB PO Q HS TRILEPTAL 150 MG ORAL TABS 321651 OXCARBAZEPINE Inactive LAMISIL 125 MG ORAL PACK 1 TAB PO DAILY LAMISIL 125 MG ORAL PACK TERBINAFINE HCL Inactive HYDROCHLOROTHIAZIDE TABS Take one by mouth daily HYDROCHLOROTHIAZIDE TABS HYDROCHLOROTHIAZIDE TABS Inactive HYDROCODONE-ACETAMINOPHEN 5-325 MG TABS 1 tab by mouth BID prn back pain 2013 HYDROCODONE-ACETAMINOPHEN 5-325 MG TABS 889667 HYDROCODONE -ACETAMINOPHEN Inactive HYDRALAZINE HCL 50 MG ORAL TABS TWO BY MOUTH THREE TIMES DAILY HYDRALAZINE HCL 50 MG ORAL TABS 063988 HYDRALAZINE HCL Inactive LEVAQUIN 500 MG TAB 1 tablet by mouth daily for 7 days LEVAQUIN 500 MG TAB 080368 LEVOFLOXACIN Inactive SPIRONOLACTONE 25 MG TAB 4 tablets by mouth daily SPIRONOLACTONE 25 MG TAB 375307 SPIRONOLACTONE Inactive MECLIZINE HCL 25 MG TAB one 4 times a day as needed for dizziness MECLIZINE HCL 25 MG TAB 192845 MECLIZINE HCL Inactive CLONIDINE HCL 0.2 MG ORAL TABS 1 TAB BY MOUTH EVERY 8 HOURS 12/29 CLONIDINE HCL 0.2 MG ORAL TABS 217568 CLONIDINE HCL Inactive ZITHROMAX 250 MG TAB 2 po today, then 1 po q days 2-5 ZITHROMAX 250 MG TAB 8436527 AZITHROMYCIN Inactive TERBINAFINE HCL 250 MG TABS 1 tab po qday for foot infection 2014 TERBINAFINE HCL 250 MG TABS 416948 TERBINAFINE HCL Inactive KEFLEX 500 MG CAP 1 po TID x 10 days KEFLEX 500 MG CAP 530019 CEPHALEXIN Inactive BACTRIM DS 800-160 MG TAB 1 tab by mouth twice daily BACTRIM DS 800-160 MG TAB 561985 TRIMETHOPRIM-SULFAMETHOXAZOLE Inactive PREDNISONE 20 MG TAB take 3 tabs daily for 3 days, 2 tabs daily for 3 days, 1 tab daily for 3 days, 1/2 tab daily for 4 days PREDNISONE 20 MG TAB 342963 PREDNISONE Inactive Advance Directives Directive Description Start [...] % 11.0-15.0 platelet count 185 THOUSAND/UL 10*3/mm3 673-771 2970/04/14 mean platelet volume 10.9 fL 7.5-12.5 Lab Report: HEPATITIS B SAB/Immune Status, RUBELLA IGG AB(Immune Status) - Serology rubella antibody, serum, IgG 2.06 Lab Report: LIPID PANEL, TSH/899, T4, FREE/866 - Chemistry cholesterol, serum 220 mg/dL 618-016 5283/04/14 HDL cholesterol, serum 30 mg/dL > OR=40 triglyceride, serum, fasting 466 mg/dL <150 LDL cholesterol, serum SEE NOTE mg/dL (calc) mg/dL <130 cholesterol/HDL ratio, serum 7.3 (calc) < OR=5.0 Lab Report: MICROALB/CREAT W/RATIO - Chemistry albumin/creatinine ratio, urine < 30 mg/g mg/g{creat} 0-29 Lab Report: MICROALB/CREAT W/RATIO - Lab microalbumin, urine 80 0-19 Lab Report: VITAMIN D, 25-HYDROXY/77346 - Chemistry vitamin D 25-hydroxy, serum 23 ng/mL 30-100 Encounters Code Encounter Date Provider Facility CPT-29936 Level 4 Est. Patient 12:00:49 CLINICAL SCIENCE LIAISON Rober Rodríguez [facility] CPT-27015 Level 3 Est. Patient 09:16:37 CDT Robbie Busby MD [facility] CPT-89181 Level 3 Est. Patient 19:38:43 CDT Robbie Busby MD [facility] CPT-24613 Level 3 Est. Patient 11:53:38 CDT Robbie Busby MD [facility] CPT-45023 Level 4 Est. Patient 12:52:22 CDT Rober [address]rí[address]uez [facility] CPT-24921 Level 4 Est. Patient 22:55:17 CDT Robbie Busby MD [facility] CPT-34513 Level 3 Est. Patient 12:38:24 CDT Desmond Diaz DO [facility] CPT-91480 Level 4 Est. Patient 11:25:03 CLINICAL SCIENCE LIAISON Robbie Busby MD [facility] CPT-62106 Level 4 Est. Patient 14:50:10 CDT Robbie Busby MD [facility] CPT-28075 Level 4 Est. Patient 23:30:43 CDT Robbie Busby MD [facility] CPT-16790 Level 4 Est. Patient 10:30:43 CDT Robbie Busby MD [facility] CPT-54491 Level 3 Est. Patient 17:08:12 CDT Alex Shaw [facility] CPT-32371 Level 4 Est. Patient 17:51:38 CDT Robbie Busby MD [facility] CPT-88592 Level 4 Est. Patient 14:00:21 CDT Robbie Busby MD [facility] CPT-91451 Level 4 Est. Patient 12:46:48 CDT Robbie Busby MD [facility] CPT-93541 Level 4 Est. Patient 13:34:33 CDT Robbie Busby MD [facility] CPT-97473 Level 4 Est. Patient 16:58:28 CDT Robbie Busby MD [facility] CPT-59636 Level 3 Est. Patient 19:36:53 CDT Alex Shaw [facility] CPT-18908 Level 3 Est. Patient 12:58:15 CDT Robbie Busby MD [facility] Procedures Code Procedure Name Date Entry Date Standard Description CPT-J0696 Rocephin 1000 mg (Ceftriaxone) 17:43:43 CLINICAL SCIENCE LIAISON CPT-J1040 Depo Medrol 80 mg (Methyl Prednisolone Acetate) 17:43: 43 CLINICAL SCIENCE LIAISON CPT-J1100 Decadron 8mg (Dexamethasone) 17:43:42 CLINICAL SCIENCE LIAISON CPT-54056 Abx/Therapy Injection 17:43:42 CLINICAL SCIENCE LIAISON CPT-58622 Abx/Therapy Injection 17:43:42 CLINICAL SCIENCE LIAISON CPT-J1040 Depo Medrol 80 mg (Methyl Prednisolone Acetate) 09:43: 34 CLINICAL SCIENCE LIAISON CPT-J1100 Decadron 8mg (Dexamethasone) 09:43:34 CLINICAL SCIENCE LIAISON CPT-J0696 Rocephin 1gm Inj Solr 09:43:34 CLINICAL SCIENCE LIAISON CPT-17167 Wound Culture - LAB USE ONLY 14:00:21 CDT CPT-I/D I/D Abscess 09:16:37 CDT CPT-99547 Venipuncture Draw Fee 15:20:23 CDT CPT-74935 Microalbumin - LAB USE ONLY 16:02:19 CDT CPT-91496 CBC - LAB USE ONLY 16:02:19 CDT CPT-52181 Venipuncture Draw Fee 16:02:19 CDT CPT-G0438 Initial Annual Wellness Exam 08:10:28 CDT CPT-04718 Venipuncture Draw Fee 13:07:17 CDT CPT-G0008 Administration of Influenza Virus Vaccine 16:09:59 CDT CPT-22256 Fluzone Quadrivalent Intramuscular Suspension 0.5 ML 16: 09:59 CDT CPT-62957 Spec Collection and Handling Fee 15:05:50 CDT
--- OUTSIDE RECORDS SUMMARY | 2018-04-18 13:15 | XMS REPORT | Clinical Summary ---
Author Author Admin, Nicolas Organization [facility] Address Unknown Phone Unavailable Allergies, Adverse Reactions, Alerts Allergy Name Reaction Description Start Date Severity Status Provider No Known Allergies Vanessa August Conditions or Problems Problem Name Problem Code Onset Date Status Entry Date Provider Comment Standard Description Annotate HEALTH EXAMINATION OF DEFINED SUBPOPULATION V70.5 Active [employer] examination of defined subpopulations Hypertension [...] Sleep apnea, chronic 780.57 Active Erin Mai HULL GRINDER Unspecified sleep apnea Continuous positive airway pressure rx V46.2 Active Erin Mai H[employer]INDER Other dependence on machines, 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 Fatigue 780.79 Resolved Desmond Diaz DO Other malaise and fatigue Hypertension, secondary, 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2 Active Erin Mai H[employer] GR[employer]ER Other testicular hypofunction Low back pain, chronic [...] 37.0-37.9, adult Sinusitis ICD-461.9 Inactive Emily Atwood MANUFACTURING MAINTENANCE MANAGER 2017 Low back pain, acute ICD-724.2 Inactive Emily Atwood MANUFACTURING MAINTENANCE MANAGER Low back pain, chronic ICD-724.2 Inactive Emily Atwood MANUFACTURING MAINTENANCE MANAGER Bronchitis, acute ICD-466.0 Inactive Emily Atwood MANUFACTURING MAINTENANCE MANAGER Onychomycosis, toenails ICD-110.1 Inactive Emily Atwood MANUFACTURING MAINTENANCE MANAGER Dizziness ICD-780.4 Inactive Emily Atwood MANUFACTURING MAINTENANCE MANAGER 2017 Folliculitis ICD-704.8 Inactive Emily Atwood MANUFACTURING MAINTENANCE MANAGER Pharyngitis-Acute ICD-462 Inactive Emily Atwood MANUFACTURING MAINTENANCE MANAGER Fatigue ICD-780.79 Inactive Emily Atwood MANUFACTURING MAINTENANCE MANAGER 09/20 Hypertension, secondary, malignant ICD-405.09 Inactive Emily Atwood MANUFACTURING MAINTENANCE MANAGER Insect bite, infected ICD-919.5 Inactive Emily Atwood MANUFACTURING MAINTENANCE MANAGER Abscess, skin ICD-682.9 Inactive Emily Atwood MANUFACTURING MAINTENANCE MANAGER URI ICD-465.9 Inactive Emily Atwood MANUFACTURING MAINTENANCE MANAGER Sinusitis - acute ICD-461.9 Inactive Emily Atwood MANUFACTURING MAINTENANCE MANAGER Acute confusion ICD-293.0 Inactive Emily Atwood MANUFACTURING MAINTENANCE MANAGER Headache ICD-784.0 Inactive Emily Rai CISSE 09/20 [...] HOUR 1 po q day ISOSORBIDE MONONITRATE 84992320483 Active Emma Hernandez Active METOPROLOL SUCCINATE ER 200 MG ORAL TABLET EXTENDED RELEASE 24 HOUR take 1 tab po qday for high blood pressure and rapid pulse METOPROLOL SUCCINATE 63570264400 Active Robbie Busby MD Active [id number] 0.3 MG/24HR TRANSDERMAL PATCH WEEKLY apply 2 patches q week for HTN CLONIDINE HCL 45245780463 No Longer Active Robbie Busby MD Active IMDUR 60 MG ORAL TABLET EXTENDED RELEASE 24 HOUR take 1 tab po qday for blood pressure ISOSORBIDE MONONITRATE 12228870951 No Longer Active Robbie Busby MD Active TEMAZEPAM 15 MG ORAL CAPSULE 1 TAB PO Q HS TEMAZEPAM 88229192746 No Longer Active Robbie Busby MD Active TOPIRAMATE 50 MG ORAL TABLET 1 po BID for migraines TOPIRAMATE 24120922693 No Longer Active Robbie Busby MD Active CYCLOBENZAPRINE HCL 10 MG ORAL TABLET 1 tablet by mouth three times daily as needed for muscle spasm/pain CYCLOBENZAPRINE HCL 63782127248 No Longer Active Robbie Busby MD Active TOPROL XL 200 MG ORAL TABLET EXTENDED RELEASE 24 HOUR Take one by mouth daily METOPROLOL SUCCINATE 74086725068 No Longer Active Robbie Busby MD Active METFORMIN HCL 500 MG ORAL TABLET 1 tablet by mouth daily for diabetes type 2 METFORMIN HCL 15774598775 Active Robbie Busby MD Active SINGULAIR 10 MG ORAL TABLET 1 po qday for allergies. MONTELUKAST SODIUM 86948663452 No Longer Active Robbie Busby MD Active PREDNISONE 20 MG ORAL TABLET two tabs by mouth today, then one tab by mouth days two and three PREDNISONE 16406859467 No Longer Active Robbie Busby MD Active AZITHROMYCIN 250 MG ORAL TABLET 2 po qd x 1 day, then 1 po qd x 4 days 09/20 AZITHROMYCIN 29487860557 No Longer Active Desmond Diaz DO Active TOPIRAMATE 50 MG ORAL TABLET take 1 tab po BID for migraines. TOPIRAMATE 98586019800 No Longer Active Desmond Diaz DO Active CYCLOBENZAPRINE HCL 10 MG ORAL TABLET 1 po TID PRN muscle spasm/pain for 10 days CYCLOBENZAPRINE HCL 11894605923 No Longer Active Desmond Diaz DO Active GUAIFENESIN ER 600 MG ORAL TABLET EXTENDED RELEASE 12 HOUR 1 tab po q am 2016 GUAIFENESIN 40823161448 No Longer Active Robbie Busby MD Active DIVALPROEX SODIUM ER 500 MG ORAL TABLET EXTENDED RELEASE 24 HOUR Once daily DIVALPROEX SODIUM 35439540165 Active Robbie Busby MD Active DEPO-TESTOSTERONE 200 MG/ML INTRAMUSCULAR SOLUTION 1 IM Injections every 2 weeks for low testosterone TESTOSTERONE CYPIONATE 79441760271 Active Zulema Blank LPN Active FLUTICASONE PROPIONATE 50 MCG/ACT NASAL SUSPENSION 2 sprays per nostril bid for 1 week, then 1 spray bid FLUTICASONE PROPIONATE 13979395154 Active Rober Rodríguez APRN Active HYDRALAZINE HCL 25 MG ORAL TABLET Take 1 tab BID. HYDRALAZINE HCL 90633658616 Active oRber Rodríguez APRN Active VITAMIN D3 02266 UNIT ORAL TABLET 2 po weekly CHOLECALCIFEROL 44698811841 Active Robbie Busby MD Active OXYCODONE HCL ER 10 MG ORAL TABLET ER 12 HOUR ABUSE-DETERRENT 1 tab po 3 times qd. OXYCODONE HCL 77451298706 Active Robbie Busby MD Active NITROSTAT 0.4 MG SUBLINGUAL TABLET SUBLINGUAL PRN NITROGLYCERIN 05298021968 No Longer Active Robbie Busby MD Active LORATADINE 10 MG ORAL TABLET 1 tablet by mouth daily for congestion and allergies. LORATADINE 72635952343 No Longer Active Robbie Busby MD Active FLONASE 50 MCG/ACT NASAL SUSPENSION 1 spray each nostril twice daily for allergies and runny nose FLUTICASONE PROPIONATE 84337634157 No Longer Active Robbie Busby MD Active FIORICET 50-300-40 MG ORAL CAPSULE take 1 tab po qday prn migraines. CMDIBRKOWK-OIEC-UOGMOPGE 45022746640 No Longer Active Robbie Busby MD Active VITAMIN D3 35741 UNIT ORAL CAPSULE 2 CAPS PO WEEKLY CHOLECALCIFEROL 19634263958 No Longer Active Robbie Busby MD Active CYCLOBENZAPRINE HCL 10 MG ORAL TABLET 1 tablet by mouth three times daily as needed for muscle spasm/pain for 10 days CYCLOBENZAPRINE HCL 12966342799 No Longer Active Robbie Busby MD Active PREDNISONE 20 MG ORAL TABLET take 3 tabs daily for 3 days, 2 tabs daily for 3 days, 1 tab daily for 3 days, 1/2 tab daily for 4 days PREDNISONE 39053463480 No Longer Active Erin Mai APRN Active CLONIDINE HCL 0.2 MG ORAL TABLET 1 TAB BY MOUTH EVERY 8 HOURS CLONIDINE HCL 77235249132 No Longer Active Erin Mai APRN Active MECLIZINE HCL 25 MG ORAL TABLET one 4 times a day as needed for dizziness MECLIZINE HCL 19656553226 No Longer Active Erin Mai APRN Active SPIRONOLACTONE 25 MG ORAL TABLET 4 tablets by mouth daily SPIRONOLACTONE 68131650013 No Longer Active Erin Riverall H[employer] GRINDER Active LEVAQUIN 500 MG ORAL TABLET 1 tablet by mouth daily for 7 days LEVOFLOXACIN 94620943374 No Longer Active Erin Mai HULL GRINDER Active BACTRIM DS 800-160 MG ORAL TABLET 1 tab by mouth twice daily 2015 TRIMETHOPRIM-SULFAMETHOXAZOLE 46885614899 No Longer Active Robbie Busby MD Active HYDRALAZINE HCL 50 MG ORAL TABLET TWO BY MOUTH THREE TIMES DAILY HYDRALAZINE HCL 92266694139 No Longer Active Jillina Frazell HULL GRINDER Active HYDROCODONE-ACETAMINOPHEN 5-325 MG ORAL TABLET 1 tab by mouth BID prn back pain HYDROCODONE-ACETAMINOPHEN 45529242143 No Longer Active Jillina Frazell HULL GRINDER Active HYDROCHLOROTHIAZIDE TABLET Take one by mouth daily HYDROCHLOROTHIAZIDE TABS 22924656727 No Longer Active Jillina Frazell HULL GRINDER Active LAMISIL 125 MG ORAL PACKET 1 TAB PO DAILY TERBINAFINE HCL 42623497498 No Longer Active Jillina Frazell H[employer] GRINDER Active TRILEPTAL 150 MG ORAL TABLET 1 TAB PO Q HS OXCARBAZEPINE 80424410941 No Longer Active Jillina Frazell HULL GRINDER Active BETADINE 10 % EXTERNAL SOLUTION wash with solution to treat follicultis 07/29 POVIDONE-IODINE 42619310135 No Longer Active Jillina Frazell H[employer] GRINDER Active NYSTATIN 291912 UNIT/ML MOUTH/THROAT SUSPENSION 5mL po QID x 10 days NYSTATIN 72089281526 No Longer Active Erin Mai H[employer] GRINDER Active PREDNISONE 20 MG ORAL TABLET 1 tablet twice daily for 2 days, then 1 tablet once daily for 2 days PREDNISONE 41255544970 No Longer Active Robbie Busby MD Active CEFDINIR 300 MG ORAL CAPSULE Take 1 cap po bid x 10 days CEFDINIR 16513511156 No Longer Active Robbie Busby MD Active AMLODIPINE BESYLATE 10 MG ORAL TABLET 1 tablet by mouth daily AMLODIPINE BESYLATE 14843945602 Active Robbie Busby MD Active CARVEDILOL 25 MG ORAL TABLET 1 & 1/2 TAB po BID CARVEDILOL 15537337107 Active Robbie Busby MD Active NEXIUM 40 MG ORAL CAPSULE DELAYED RELEASE 1 cap by mouth daily ESOMEPRAZOLE MAGNESIUM 38161998095 Active Robbie Busby MD Active PROTONIX 40 MG INTRAVENOUS SOLUTION RECONSTITUTED 1 po qday for acid reflux PANTOPRAZOLE SODIUM 57358743253 No Longer Active Galileonila Negro Active KEFLEX 500 MG ORAL CAPSULE 1 po TID x 10 days CEPHALEXIN 25384142605 No Longer Active Robbie Busby MD Active ALPRAZOLAM 2 MG ORAL TABLET 1 TAB PO BID ALPRAZOLAM 30674630838 Active Robbie Busby MD Active FENOFIBRATE 145 MG ORAL TABLET Take one by mouth daily FENOFIBRATE 43498072212 No Longer Active Robbie Busby MD Active SPIRONOLACTONE 50 MG ORAL TABLET 1 tablet by mouth twice a day SPIRONOLACTONE 78045756490 No Longer Active Robbie Busby MD Active HYDRALAZINE HCL 25 MG ORAL TABLET 1 tablet by mouth tid for hypertension 2013 HYDRALAZINE HCL 86494006258 No Longer Active Robbie Busby MD Active VIIBRYD 40 MG ORAL TABLET take 1 tab po qday for depression. 2014 VILAZODONE HCL 58816230178 No Longer Active Robbie Busby MD Active TERBINAFINE HCL 250 MG ORAL TABLET 1 tab po qday for foot infection TERBINAFINE HCL 47852015509 No Longer Active Robbie Busby MD Active GABAPENTIN 300 MG ORAL CAPSULE 1 po q hs for nerve pain GABAPENTIN 15146796309 Active Robbie Busby MD Active CHERATUSSIN AC 100-10 MG/5ML ORAL SOLUTION 7.5 mL PO q 4-6 hrs PRN cough 2014 GUAIFENESIN-CODEINE 71125167064 No Longer Active Robbie Busby MD Active AZITHROMYCIN 250 MG ORAL TABLET 2 tablets PO today---then, 1 tablet PO daily x 4 more days (and 1 optional refill) AZITHROMYCIN 70956478328 No Longer Active Robbie Busby MD Active NORVASC 10 MG ORAL TABLET 1 tablet by mouth daily AMLODIPINE BESYLATE 27035730958 No Longer Active Alex ALVAREZ Active ISOSORBIDE DINITRATE 30 MG ORAL TABLET Take one by mouth daily ISOSORBIDE DINITRATE 62672753905 No Longer Active Robbie Busby MD Active VIIBRYD 40 MG ORAL TABLET 1 TA B PO DAILY VILAZODONE HCL 03345378774 Active Robbie Busby MD Active ZITHROMAX 250 MG ORAL TABLET 2 po today, then 1 po q days 2-5 AZITHROMYCIN 87884786102 No Longer Active Robbie Busby MD Active DOXAZOSIN MESYLATE 4 MG ORAL TABLET Take one by mouth daily DOXAZOSIN MESYLATE 87688920313 Active Robbie Busby MD Active VENLAFAXINE HCL ER 150 MG ORAL TABLET EXTENDED RELEASE 24 HOUR Take one by mouth daily VENLAFAXINE HCL 03103553507 Active Robbie Busby MD Active LIPITOR 40 MG ORAL TABLET Take one by mouth daily ATORVASTATIN CALCIUM 58695896918 Active Robbie Busby MD Active ISOSORBIDE DINITRATE 30 MG ORAL TABLET Take one by mouth daily ISOSORBIDE DINITRATE 30 MG ORAL TABLET 396806 ISOSORBIDE DINITRATE Inactive NORVASC 10 MG ORAL TABLET 1 tablet by mouth daily NORVASC 10 MG ORAL TABLET 833344 AMLODIPINE BESYLATE Inactive AZITHROMYCIN 250 MG ORAL TABLET 2 tablets PO today---then, 1 tablet PO daily x 4 more days (and 1 optional refill) AZITHROMYCIN 250 MG ORAL TABLET 669618 AZITHROMYCIN Inactive CHERATUSSIN AC 100-10 MG/5ML ORAL SOLUTION 7.5 mL PO q 4-6 hrs PRN cough 2014 CHERATUSSIN AC 100-10 MG/5ML ORAL SOLUTION 159359 GUAIFENESIN-CODEINE Inactive VIIBRYD 40 MG ORAL TABLET take 1 tab po qday for depression. 2014 VIIBRYD 40 MG ORAL TABLET VILAZODONE HCL Inactive HYDRALAZINE HCL 25 MG ORAL TABLET 1 tablet by mouth tid for hypertension 2013 HYDRALAZINE HCL 25 MG ORAL TABLET 281659 HYDRALAZINE HCL Inactive SPIRONOLACTONE 50 MG ORAL TABLET 1 tablet by mouth twice a day SPIRONOLACTONE 50 MG ORAL TABLET 908387 SPIRONOLACTONE Inactive FENOFIBRATE 145 MG ORAL TABLET Take one by mouth daily FENOFIBRATE 145 MG ORAL TABLET 193997 FENOFIBRATE Inactive PROTONIX 40 MG INTRAVENOUS SOLUTION RECONSTITUTED 1 po qday for acid reflux PROTONIX 40 MG INTRAVENOUS SOLUTION RECONSTITUTED 286607 PANTOPRAZOLE SODIUM Inactive CEFDINIR 300 MG ORAL CAPSULE Take 1 cap po bid x 10 days CEFDINIR 300 MG ORAL CAPSULE 389141 CEFDINIR Inactive PREDNISONE 20 MG ORAL TABLET 1 tablet twice daily for 2 days, then 1 tablet once daily for 2 days PREDNISONE 20 MG ORAL TABLET 598552 PREDNISONE Inactive NYSTATIN 186032 UNIT/ML MOUTH/THROAT SUSPENSION 5mL po QID x 10 days NYSTATIN 476496 UNIT/ML MOUTH/THROAT SUSPENSION 207541 NYSTATIN Inactive BETADINE 10 % EXTERNAL SOLUTION wash with solution to treat follicultis 07/29 BETADINE 10 % EXTERNAL SOLUTION 3742816 POVIDONE-IODINE Inactive TRILEPTAL 150 MG ORAL TABLET 1 TAB PO Q HS TRILEPTAL 150 MG ORAL TABLET 789478 OXCARBAZEPINE Inactive LAMISIL 125 MG ORAL PACKET 1 TAB PO DAILY LAMISIL 125 MG ORAL PACKET TERBINAFINE HCL Inactive HYDROCHLOROTHIAZIDE TABLET Take one by mouth daily HYDROCHLOROTHIAZIDE TABLET HYDROCHLOROTHIAZIDE TABS Inactive HYDROCODONE-ACETAMINOPHEN 5-325 MG ORAL TABLET 1 tab by mouth BID prn back pain HYDROCODONE-ACETAMINOPHEN 5-325 MG ORAL TABLET 227038 HYDROCODONE-ACETAMINOPHEN Inactive HYDRALAZINE HCL 50 MG ORAL TABLET TWO BY MOUTH THREE TIMES DAILY HYDRALAZINE HCL 50 MG ORAL TABLET 480126 HYDRALAZINE HCL Inactive LEVAQUIN 500 MG ORAL TABLET 1 tablet by mouth daily for 7 days LEVAQUIN 500 MG ORAL TABLET 517431 LEVOFLOXACIN Inactive SPIRONOLACTONE 25 MG ORAL TABLET 4 tablets by mouth daily SPIRONOLACTONE 25 MG ORAL TABLET 055590 SPIRONOLACTONE Inactive MECLIZINE HCL 25 MG ORAL TABLET one 4 times a day as needed for dizziness MECLIZINE HCL 25 MG ORAL TABLET 506002 MECLIZINE HCL Inactive CLONIDINE HCL 0.2 MG ORAL TABLET 1 TAB BY MOUTH EVERY 8 HOURS CLONIDINE HCL 0.2 MG ORAL TABLET 734194 CLONIDINE HCL Inactive CYCLOBENZAPRINE HCL 10 MG ORAL TABLET 1 tablet by mouth three times daily as needed for muscle spasm/pain for 10 days CYCLOBENZAPRINE HCL 10 MG ORAL TABLET 021401 CYCLOBENZAPRINE HCL Inactive VITAMIN D3 06158 UNIT ORAL CAPSULE 2 CAPS PO WEEKLY VITAMIN D3 90095 UNIT ORAL CAPSULE CHOLECALCIFEROL Inactive FIORICET 50-300-40 MG ORAL CAPSULE take 1 tab po qday prn migraines. FIORICET 50-300-40 MG ORAL CAPSULE 327188 BUTALBITAL-APAP- CAFFEINE Inactive FLONASE 50 MCG/ACT NASAL SUSPENSION 1 spray each nostril twice daily for allergies and runny nose FLONASE 50 MCG/ACT NASAL SUSPENSION 6778686 FLUTICASONE PROPIONATE Inactive LORATADINE 10 MG ORAL TABLET 1 tablet by mouth daily for congestion and allergies. LORATADINE 10 MG ORAL TABLET 747895 LORATADINE Inactive NITROSTAT 0.4 MG SUBLINGUAL TABLET SUBLINGUAL PRN NITROSTAT 0.4 MG SUBLINGUAL TABLET SUBLINGUAL 195581 NITROGLYCERIN Inactive GUAIFENESIN ER 600 MG ORAL TABLET EXTENDED RELEASE 12 HOUR 1 tab po q am 2016 GUAIFENESIN ER 600 MG ORAL TABLET EXTENDED RELEASE 12 HOUR GUAIFENESIN Inactive CYCLOBENZAPRINE HCL 10 MG ORAL TABLET 1 po TID PRN muscle spasm/pain for 10 days CYCLOBENZAPRINE HCL 10 MG ORAL TABLET 343387 CYCLOBENZAPRINE HCL Inactive TOPIRAMATE 50 MG ORAL TABLET take 1 tab po BID for migraines. TOPIRAMATE 50 MG ORAL TABLET 170399 TOPIRAMATE Inactive PREDNISONE 20 MG ORAL TABLET two tabs by mouth today, then one tab by mouth days two and three PREDNISONE 20 MG ORAL TABLET 726800 PREDNISONE Inactive TOPROL XL 200 MG ORAL TABLET EXTENDED RELEASE 24 HOUR Take one by mouth daily TOPROL XL 200 MG ORAL TABLET EXTENDED RELEASE 24 HOUR METOPROLOL SUCCINATE Inactive CYCLOBENZAPRINE HCL 10 MG ORAL TABLET 1 tablet by mouth three times daily as needed for muscle spasm/pain CYCLOBENZAPRINE HCL 10 MG ORAL TABLET 263686 CYCLOBENZAPRINE HCL Inactive TOPIRAMATE 50 MG ORAL TABLET 1 po BID for migraines TOPIRAMATE 50 MG ORAL TABLET 300873 TOPIRAMATE Inactive TEMAZEPAM 15 MG ORAL CAPSULE 1 TAB PO Q HS TEMAZEPAM 15 MG ORAL CAPSULE 243929 TEMAZEPAM Inactive IMDUR 60 MG ORAL TABLET EXTENDED RELEASE 24 HOUR take 1 tab po qday for blood pressure IMDUR 60 MG ORAL TABLET EXTENDED RELEASE 24 HOUR ISOSORBIDE MONONITRATE Inactive [id number] 0.3 MG/24HR TRANSDERMAL PATCH WEEKLY apply 2 patches q week for HTN [id number] 0.3 MG/24HR TRANSDERMAL PATCH WEEKLY 522757 CLONIDINE HCL Inactive ZITHROMAX 250 MG ORAL TABLET 2 po today, then 1 po q days 2-5 ZITHROMAX 250 MG ORAL TABLET 945894 AZITHROMYCIN Inactive TERBINAFINE HCL 250 MG ORAL TABLET 1 tab po qday for foot infection TERBINAFINE HCL 250 MG ORAL TABLET 734383 TERBINAFINE HCL Inactive KEFLEX 500 MG ORAL CAPSULE 1 po TID x 10 days KEFLEX 500 MG ORAL CAPSULE 129884 CEPHALEXIN Inactive BACTRIM DS 800-160 MG ORAL TABLET 1 tab by mouth twice daily 2015 BACTRIM DS 800-160 MG ORAL TABLET 827717 TRIMETHOPRIM- SULFAMETHOXAZOLE Inactive PREDNISONE 20 MG ORAL TABLET take 3 tabs daily for 3 days, 2 tabs daily for 3 days, 1 tab daily for 3 days, 1/2 tab daily for 4 days PREDNISONE 20 MG ORAL TABLET 888129 PREDNISONE Inactive AZITHROMYCIN 250 MG ORAL TABLET 2 po qd x 1 day, then 1 po qd x 4 days 09/20 AZITHROMYCIN 250 MG ORAL TABLET 144212 AZITHROMYCIN Inactive SINGULAIR 10 MG ORAL TABLET 1 po qday for allergies. SINGULAIR 10 MG ORAL TABLET 150209 MONTELUKAST SODIUM Inactive Advance Directives Directive Description [...] AUTO - Chemistry sodium, serum 142 mmol/L 936-833 6881/07/17 carbon dioxide, venous blood 28.2 mmol/L 21.0-32.0 [...] % 11.0-15.0 platelet count 185 THOUSAND/UL 10*3/mm3 961-256 5749/04/14 mean platelet volume 10.9 fL 7.5-12.5 Lab Report: Comp. Metabolic Panel - Chemistry sodium, serum 141 mmol/L 635-774 3316/02/13 carbon dioxide, venous blood 23.9 mmol/L 21.0-32.0 [...] 6.9 % 4.3-6.0 sodium, serum 139 mmol/L 520-284 6237/01/04 potassium, serum 3.9 mmol/L 3.5-5.2 chloride, serum 103 mmol/L 98-107 carbon dioxide, venous blood 26.9 mmol/L 21.0-32.0 blood glucose 106 mg/dL 65-110 calcium, serum 9.0 mg/dL 8.5-10.1 urea nitrogen, blood 20 mg/dL 7-18 creatinine, serum 1.46 mg/dL 0.60-1.30 Lab Report: LIPID PANEL, TSH/899, T4, FREE/866 - Chemistry cholesterol, serum 220 mg/dL 465-586 6584/04/14 HDL cholesterol, serum 30 mg/dL > OR=40 [...] 1.80 ng/mL 0.00-4.00 Lab Report: VITAMIN D, 25-HYDROXY/11808 - Chemistry vitamin D 25-hydroxy, serum 25 ng/mL 30-100 Office Visit: Confusion, dizziness after fall - Basic LDL target level 130 mg/dL Office Visit: Confusion, dizziness after fall - Chemistry HDL cholesterol, serum, target level 40 mg/dL triglyceride, target level 150 mg/dL cholesterol, target level 200 mg/dL Encounters Code Encounter Date Provider Facility CPT-16992 Level 4 Est. Patient 09:50:01 [employer]NA[employer] Robbie Busby MD [facility] CPT-58572 Level 4 Est. Patient 09:42:08 [employer] MANAGER Robbie Busby MD [facility] CPT-24652 Level 4 Est. Patient 13:07:39 [employer] MANAGER Robbie Busby MD [facility] CPT-99081 Level 4 Est. Patient 15:23:44 [employer]QU[employer] MANAGER Desmond Diaz DO [facility] CPT-36805 Level 3 Est. Patient 15:40:49 CDT Robbie Busby MD [facility] CPT-90562 Level 4 Est. Patient 15:18:19 CDT Robbie Busby MD [facility] CPT-36318 Level 3 Est. Patient 09:00:37 CDT Rober Rodríguez [facility] CPT-27743 Level 3 Est. Patient 16:07:10 CDT Robbie Busby MD [facility] CPT-21719 Level 4 Est. Patient 11:56:16 CDT Erin Mai [facility] CPT-91018 Level 3 Est. Patient 17:48:02 CDT Robbie Busby MD [facility] CPT-94638 Level 4 Est. Patient 12:00:49 [employer]QU[employer] MANAGER Rober Rodríguez [facility] CPT-08491 Level 3 Est. Patient 09:16:37 CDT Robbie Busby MD [facility]-27581 Level 3 Est. Patient 19:38:43 CDT Robbie Busby MD [facility] CPT-69525 Level 3 Est. Patient 11:53:38 CDT Robbie Busby MD [facility] CPT-62294 Level 4 Est. Patient 12:52:22 CDT Rober Rodríguez [facility]-10942 Level 4 Est. Patient 22:55:17 CDT Robbie Busby MD [facility]-63723 Level 3 Est. Patient 12:38:24 CDT Desmond Diaz DO [facility] CPT-84780 Level 4 Est. Patient 11:25:03 [employer]QU[employer] MANAGER Robbie Busby MD [facility] CPT-61292 Level 4 Est. Patient 14:50:10 CDT Robbie Busby MD [facility] CPT-03399 Level 4 Est. Patient 23:30:43 CDT Robbie Busby MD [facility] CPT-99978 Level 4 Est. Patient 10:30:43 CDT Robbie Busby MD [facility] CPT-55597 Level 3 Est. Patient 17:08:12 CDT Alex ALVAREZ [facility] CPT-77576 Level 4 Est. Patient 17:51:38 CDT Robbie Busby MD [facility]-58245 Level 4 Est. Patient 14:00:21 CDT Robbie Busby MD [facility] CPT-65064 Level 4 Est. Patient 12:46:48 CDT Robbie Busby MD [facility] CPT-16284 Level 4 Est. Patient 13:34:33 CDT Robbie Busby MD [facility] CPT-91001 Level 4 Est. Patient 16:58:28 CDT Robbie Busby MD [facility] CPT-22307 Level 3 Est. Patient 19:36:53 CDT Alex ALVAREZ [facility] CPT-63772 Level 3 Est. Patient 12:58:15 CDT Robbie Busby MD [facility] Procedures Code Procedure Name Date Entry Date Standard Description CPT-J1071 Depo Testosterone 200mg 16:10:29 [facility] CPT-11268 Abx/Therapy Injection 16:10:29 [facility] CPT-J1071 Depo Testosterone 200mg 16:13:47 [facility] CPT-68379 Abx/Therapy Injection 16:13:46 [facility] CPT-J1071 Depo Testosterone 200mg 15:33:58 [facility] CPT-08320 Abx/Therapy Injection 15:33:58 [facility] CPT-J1071 Depo Testosterone 200mg 09:38:36 [facility] CPT-98594 Abx/Therapy Injection 09:38:36 [facility] CPT-J1071 Depo Testosterone 200mg 10:22:56 [employer] CPT-31831 Abx/Therapy Injection 10:22:56 [employer] CPT-J1071 Depo Testosterone 200mg 15:40:23 CDT CPT-66548 Abx/Therapy Injection 15:40:23 CDT CPT-J1071 Depo Testosterone 200mg 14:20:43 CDT CPT-46956 Abx/Therapy Injection 14:20:43 CDT CPT-J1071 Depo Testosterone 200mg 14:17:22 CDT CPT-13815 Abx/Therapy Injection 14:17:22 CDT CPT-J1071 Depo Testosterone 200mg 09:03:53 CDT CPT-17918 Abx/Therapy Injection 09:03:53 CDT CPT-G0439 [facility] Annual Wellness Exam 16:47:44 CDT CPT-J1071 Depo Testosterone 200mg 09:06:28 CDT CPT-28584 Abx/Therapy Injection 09:06:28 CDT CPT-J1071 Depo Testosterone 200mg 08:30:01 CDT CPT-03435 Abx/Therapy Injection 08:30:01 CDT CPT-J1071 Depo Testosterone 200mg 08:24:00 CDT CPT-35486 Abx/Therapy Injection 08:24:00 CDT CPT-71151 Venipuncture Draw Fee 14:39:06 CDT CPT-47103 Ribs unilateral 2V - XRAY USE ONLY 12:10:11 CDT CPT-77279 First Vx - Ix admin for Medicare patients 16:32:53 CDT CPT-24195 Boostrix Intramuscular Suspension 5-2.5-18.5 16:32:53 CDT CPT-26149 TB Skin Test 11:42:28 CDT CPT-66034 Tdap 7yrs or > 11:42:28 CDT CPT-J0696 Rocephin 1000 mg (Ceftriaxone) 17:43:43 [employer] CPT-J1040 Depo Medrol 80 mg (Methyl Prednisolone Acetate) 17:43: 43 [employer] CPT-J1100 Decadron 8mg (Dexamethasone) 17:43:42 [employer] CPT-95817 Abx/Therapy Injection 17:43:42 [employer] MANA[employer] CPT-29367 Abx/Therapy Injection 17:43:42 [employer] MA[employer] CPT-J1040 Depo Medrol 80 mg (Methyl Prednisolone Acetate) 09:43: 34 [employer] MANA[employer] CPT-J1100 Decadron 8mg (Dexamethasone) 09:43:34 [employer] MANAGER CPT-J0696 Rocephin 1gm Inj Solr 09:43:34 [employer] MANAGER CPT-50113 Wound Culture - LAB USE ONLY 14:00:21 CDT CPT-I/D I/D Abscess 09:16:37 CDT CPT-55314 Venipuncture Draw Fee 15:20:23 CDT CPT-17790 Microalbumin - LAB USE ONLY 16:02:19 CDT CPT-12994 CBC - LAB USE ONLY 16:02:19 CDT CPT-83983 Venipuncture Draw Fee 16:02:19 CDT CPT-G0438 Initial Annual Wellness Exam 08:10:28 CDT CPT-30638 Venipuncture Draw Fee 13:07:17 CDT CPT-G0008 Administration of Influenza Virus Vaccine 16:09:59 CDT CPT-30949 Fluzone Quadrivalent Intramuscular Suspension 0.5 ML 16: 09:59 CDT CPT-43166 Spec Collection and Handling Fee 15:05:50 CDT
--- OUTSIDE RECORDS SUMMARY | 2018-04-18 13:16 | XMS REPORT | Clinical Summary ---
Author Author Admin, [facility] Organization [facility] Address [...] 2 weeks for low testosterone TESTOSTERONE CYPIONATE 64297893210 Active Zulema Blank LPN Active CYCLOBENZAPRINE HCL 10 MG ORAL TABS 1 po TID PRN muscle spasm/pain for 10 days CYCLOBENZAPRINE HCL 69050849552 Active JONATHAN Moncada Active GUAIFENESIN 600 MG [id number] 1 tab po q am GUAIFENESIN 56506251820 Active Jillina Frazelariana GONZALEZN Active FLUTICASONE PROPIONATE 50 MCG/ACT SUSP 2 sprays per nostril bid for 1 week, then 1 spray bid FLUTICASONE PROPIONATE 55005609130 Active Jillina Anne GONZALEZN Active HYDRALAZINE HCL 25 MG ORAL TABS Take 1 tab BID. HYDRALAZINE HCL 75630319242 Active Jillina Anne GONZALEZN Active VITAMIN D3 28773 UNIT ORAL TABS 2 po weekly CHOLECALCIFEROL 30016596498 Active Robbie Busby MD Active OXYCODONE HCL ER 10 MG ORAL T12A 1 tab po 3 times qd. OXYCODONE HCL 24837203756 Active Robbie Busby MD Active NITROSTAT 0.4 MG SUBL PRN NITROGLYCERIN 97482342952 No Longer Active Robbie Busby MD Active LORATADINE 10 MG TABS 1 tablet by mouth daily for congestion and allergies. LORATADINE 72177056200 No Longer Active oRbbie Busby MD Active FLONASE 50 MCG/ACT SUSP 1 spray each nostril twice daily for allergies and runny nose FLUTICASONE PROPIONATE 68004736500 No Longer Active Robbie Busby MD Active FIORICET 50-300-40 MG ORAL CAPS take 1 tab po qday prn migraines. [id number] 84932827480 No Longer Active Robbie Busby MD Active VITAMIN D3 57105 UNIT CAPS 2 CAPS PO WEEKLY CHOLECALCIFEROL 99041916357 No Longer Active Robbie Busby MD Active CYCLOBENZAPRINE HCL 10 MG TABS 1 tablet by mouth three times daily as needed for muscle spasm/pain for 10 days CYCLOBENZAPRINE HCL 73689917184 No Longer Active Robbie Busby MD Active PREDNISONE 20 MG TAB take 3 tabs daily for 3 days, 2 tabs daily for 3 days, 1 tab daily for 3 days, 1/2 tab daily for 4 days PREDNISONE 59911316340 No Longer Active Erin Garsia APRN Active CLONIDINE HCL 0.2 MG ORAL TABS 1 TAB BY MOUTH EVERY 8 HOURS 12/29 CLONIDINE HCL 41919917165 No Longer Active Erin Garsia APRN Active MECLIZINE HCL 25 MG TAB one 4 times a day as needed for dizziness MECLIZINE HCL 01159737986 No Longer Active Erin Garsia APRN Active SPIRONOLACTONE 25 MG TAB 4 tablets by mouth daily SPIRONOLACTONE 06075366466 No Longer Active Erin Garsia APRN Active LEVAQUIN 500 MG TAB 1 tablet by mouth daily for 7 days LEVOFLOXACIN 30296813587 No Longer Active Erin Garsia APRN Active BACTRIM DS 800-160 MG TAB 1 tab by mouth twice daily TRIMETHOPRIM-SULFAMETHOXAZOLE 09740491595 No Longer Active Robbie Busby MD Active HYDRALAZINE HCL 50 MG ORAL TABS TWO BY MOUTH THREE TIMES DAILY HYDRALAZINE HCL 39866116614 No Longer Active Andrellina Anne GONZALEZN Active HYDROCODONE-ACETAMINOPHEN 5-325 MG TABS 1 tab by mouth BID prn back pain 2013 HYDROCODONE-ACETAMINOPHEN 49225540770 No Longer Active Jillina Frazell [employer] Active HYDROCHLOROTHIAZIDE TABS Take one by mouth daily HYDROCHLOROTHIAZIDE TABS 83156167950 No Longer Active Jillina Frazell [employer] Active LAMISIL 125 MG ORAL PACK 1 TAB PO DAILY TERBINAFINE HCL 48417055246 No Longer Active Jillina Frazell [employer]ER Active TRILEPTAL 150 MG ORAL TABS 1 TAB PO Q HS OXCARBAZEPINE 06377837796 No Longer Active Jillina Frazell [employer] D[employer]ER Active BETADINE 10 % EXT SOLN wash with solution to treat follicultis POVIDONE-IODINE 61648777248 No Longer Active Jillina Frazell [employer] D[employer]ER Active NYSTATIN 432534 UNIT/ML M/T SUSP 5mL po QID x 10 days NYSTATIN 90426779935 No Longer Active Erin Garsia APRN Active PREDNISONE 20 MG TAB 1 tablet twice daily for 2 days, then 1 tablet once daily for 2 days PREDNISONE 93036726051 No Longer Active Robbie Busby MD Active CEFDINIR 300 MG ORAL CAPS Take 1 cap po bid x 10 days CEFDINIR 66215020063 No Longer Active Robbie Busby MD Active AMLODIPINE BESYLATE 10 MG TABS 1 tablet by mouth daily AMLODIPINE BESYLATE 77524540073 Active Robbie Busby MD Active CARVEDILOL 25 MG TABS 1 & 1/2 TAB po BID CARVEDILOL 66821123637 Active Robbie Busby MD Active NEXIUM 40 MG CPDR 1 cap by mouth daily ESOMEPRAZOLE MAGNESIUM 55393648752 Active Robbie Busby MD Active PROTONIX 40 MG SOLR 1 po qday for acid reflux PANTOPRAZOLE SODIUM 51074215342 No Longer Active Gali Raida Active KEFLEX 500 MG CAP 1 po TID x 10 days CEPHALEXIN 43912465094 No Longer Active Robbie Busby MD Active TOPIRAMATE 50 MG ORAL TABS take 1 tab po BID for migraines. TOPIRAMATE 74876576895 Active Robbie Busby MD Active TEMAZEPAM 15 MG ORAL CAPS 1 TAB PO Q HS TEMAZEPAM 11017442851 Active Robbie Busby MD Active ALPRAZOLAM 2 MG ORAL TABS 1 TAB PO BID ALPRAZOLAM 55672613638 Active Robbie Busby MD Active FENOFIBRATE 145 MG TABS Take one by mouth daily FENOFIBRATE 58383478973 No Longer Active Robbie Busby MD Active SPIRONOLACTONE 50 MG TABS 1 tablet by mouth twice a day SPIRONOLACTONE 93833112228 No Longer Active Robbie Busby MD Active HYDRALAZINE HCL 25 MG TABS 1 tablet by mouth tid for hypertension HYDRALAZINE HCL 61192007934 No Longer Active Robbie Busby MD Active VIIBRYD 40 MG TABS take 1 tab po qday for depression. VILAZODONE HCL 19337621223 No Longer Active Robbie Busby MD Active TERBINAFINE HCL 250 MG TABS 1 tab po qday for foot infection 2014 TERBINAFINE HCL 87654877352 No Longer Active Robbie Busby MD Active GABAPENTIN 300 MG CAPS 1 po q hs for nerve pain GABAPENTIN 02374612202 Active Robbie Busby MD Active CHERATUSSIN AC 100-10 MG/5ML ORAL SOLN 7.5 mL PO q 4-6 hrs PRN cough GUAIFENESIN-CODEINE 25999283204 No Longer Active Robbie Busby MD Active AZITHROMYCIN 250 MG ORAL TABS 2 tablets PO today---then, 1 tablet PO daily x 4 more days (and 1 optional refill) AZITHROMYCIN 62217185689 No Longer Active Robbie Busby MD Active NORVASC 10 MG TAB 1 tablet by mouth daily AMLODIPINE BESYLATE 30387991889 No Longer Active Alex ALVAREZ Active IMDUR 60 MG TAB CR take 1 tab po qday for blood pressure ISOSORBIDE MONONITRATE Active Robbie Busby MD Active ISOSORBIDE DINITRATE 30 MG TABS Take one by mouth daily ISOSORBIDE DINITRATE 42667631873 No Longer Active Robbie Busby MD Active VIIBRYD 40 MG TABS 1 TA B PO DAILY VILAZODONE HCL 71100947949 Active Robbie Busby MD Active ZITHROMAX 250 MG TAB 2 po today, then 1 po q days 2-5 AZITHROMYCIN 50106522087 No Longer Active Robbie Busby MD Active [id number]-EXA-4 0.3 MG/24HR PTWK apply 2 patches q week for HTN CLONIDINE HCL 61001743079 Active Robbie Busby MD Active DOXAZOSIN MESYLATE 4 MG TABS Take one by mouth daily DOXAZOSIN MESYLATE 09153159225 Active Robbie Busby MD Active TOPROL XL 200 MG [id number] Take one by mouth daily METOPROLOL SUCCINATE 25045818500 Active Robbie Busby MD Active VENLAFAXINE HCL ER 150 MG [id number] Take one by mouth daily VENLAFAXINE HCL 86460253017 Active Robbie Busby MD Active LIPITOR 40 MG TABS Take one by mouth daily ATORVASTATIN CALCIUM 05680559910 Active Robbie Busby MD Active ISOSORBIDE DINITRATE 30 MG TABS Take one by mouth daily ISOSORBIDE DINITRATE 30 MG TABS 655726 ISOSORBIDE DINITRATE Inactive NORVASC 10 MG TAB 1 tablet by mouth daily NORVASC 10 MG TAB 101883 AMLODIPINE BESYLATE Inactive AZITHROMYCIN 250 MG ORAL TABS 2 tablets PO today---then, 1 tablet PO daily x 4 more days (and 1 optional refill) AZITHROMYCIN 250 MG ORAL TABS 5440261 AZITHROMYCIN Inactive CHERATUSSIN AC 100-10 MG/5ML ORAL SOLN 7.5 mL PO q 4-6 hrs PRN cough CHERATUSSIN AC 100-10 MG/5ML ORAL SOLN 410705 GUAIFENESIN- CODEINE Inactive VIIBRYD 40 MG TABS take 1 tab po qday for depression. VIIBRYD 40 MG TABS VILAZODONE HCL Inactive HYDRALAZINE HCL 25 MG TABS 1 tablet by mouth tid for hypertension HYDRALAZINE HCL 25 MG TABS 734674 HYDRALAZINE HCL Inactive SPIRONOLACTONE 50 MG TABS 1 tablet by mouth twice a day SPIRONOLACTONE 50 MG TABS 878799 SPIRONOLACTONE Inactive FENOFIBRATE 145 MG TABS Take one by mouth daily FENOFIBRATE 145 MG TABS 083293 FENOFIBRATE Inactive PROTONIX 40 MG SOLR 1 po qday for acid reflux PROTONIX 40 MG SOLR 796678 PANTOPRAZOLE SODIUM Inactive CEFDINIR 300 MG ORAL CAPS Take 1 cap po bid x 10 days CEFDINIR 300 MG ORAL CAPS 948133 CEFDINIR Inactive PREDNISONE 20 MG TAB 1 tablet twice daily for 2 days, then 1 tablet once daily for 2 days PREDNISONE 20 MG TAB 728603 PREDNISONE Inactive NYSTATIN 748162 UNIT/ML M/T SUSP 5mL po QID x 10 days NYSTATIN 868364 UNIT/ML M/T SUSP 695254 NYSTATIN Inactive BETADINE 10 % EXT SOLN wash with solution to treat follicultis BETADINE 10 % EXT SOLN 9563859 POVIDONE-IODINE Inactive TRILEPTAL 150 MG ORAL TABS 1 TAB PO Q HS TRILEPTAL 150 MG ORAL TABS 247047 OXCARBAZEPINE Inactive LAMISIL 125 MG ORAL PACK 1 TAB PO DAILY LAMISIL 125 MG ORAL PACK TERBINAFINE HCL Inactive HYDROCHLOROTHIAZIDE TABS Take one by mouth daily HYDROCHLOROTHIAZIDE TABS HYDROCHLOROTHIAZIDE TABS Inactive HYDROCODONE-ACETAMINOPHEN 5-325 MG TABS 1 tab by mouth BID prn back pain 2013 HYDROCODONE-ACETAMINOPHEN 5-325 MG TABS 103289 HYDROCODONE -ACETAMINOPHEN Inactive HYDRALAZINE HCL 50 MG ORAL TABS TWO BY MOUTH THREE TIMES DAILY HYDRALAZINE HCL 50 MG ORAL TABS 129866 HYDRALAZINE HCL Inactive LEVAQUIN 500 MG TAB 1 tablet by mouth daily for 7 days LEVAQUIN 500 MG TAB 597847 LEVOFLOXACIN Inactive SPIRONOLACTONE 25 MG TAB 4 tablets by mouth daily SPIRONOLACTONE 25 MG TAB 347670 SPIRONOLACTONE Inactive MECLIZINE HCL 25 MG TAB one 4 times a day as needed for dizziness MECLIZINE HCL 25 MG TAB 420491 MECLIZINE HCL Inactive CLONIDINE HCL 0.2 MG ORAL TABS 1 TAB BY MOUTH EVERY 8 HOURS 12/29 CLONIDINE HCL 0.2 MG ORAL TABS 548850 CLONIDINE HCL Inactive CYCLOBENZAPRINE HCL 10 MG TABS 1 tablet by mouth three times daily as needed for muscle spasm/pain for 10 days CYCLOBENZAPRINE HCL 10 MG TABS 663653 CYCLOBENZAPRINE HCL Inactive VITAMIN D3 48006 UNIT CAPS 2 CAPS PO WEEKLY VITAMIN D3 69398 UNIT CAPS CHOLECALCIFEROL Inactive FIORICET 50-300-40 MG ORAL CAPS take 1 tab po qday prn migraines. FIORICET 50-300-40 MG ORAL CAPS 239110 [id number] Inactive FLONASE 50 MCG/ACT SUSP 1 spray each nostril twice daily for allergies and runny nose FLONASE 50 MCG/ACT SUSP 5277339 FLUTICASONE PROPIONATE Inactive LORATADINE 10 MG TABS 1 tablet by mouth daily for congestion and allergies. LORATADINE 10 MG TABS 060033 LORATADINE Inactive NITROSTAT 0.4 MG SUBL PRN NITROSTAT 0.4 MG SUBL 743249 NITROGLYCERIN Inactive ZITHROMAX 250 MG TAB 2 po today, then 1 po q days 2-5 ZITHROMAX 250 MG TAB 3166194 AZITHROMYCIN Inactive TERBINAFINE HCL 250 MG TABS 1 tab po qday for foot infection 2014 TERBINAFINE HCL 250 MG TABS 493486 TERBINAFINE HCL Inactive KEFLEX 500 MG CAP 1 po TID x 10 days KEFLEX 500 MG CAP 389088 CEPHALEXIN Inactive BACTRIM DS 800-160 MG TAB 1 tab by mouth twice daily BACTRIM DS 800-160 MG TAB 328239 TRIMETHOPRIM-SULFAMETHOXAZOLE Inactive PREDNISONE 20 MG TAB take 3 tabs daily for 3 days, 2 tabs daily for 3 days, 1 tab daily for 3 days, 1/2 tab daily for 4 days PREDNISONE 20 MG TAB 571813 PREDNISONE Inactive Advance Directives Directive Description Start [...] AUTO - Chemistry sodium, serum 142 mmol/L 727-218 6924/07/17 carbon dioxide, venous blood 28.2 mmol/L 21.0-32.0 [...] % 11.0-15.0 platelet count 185 THOUSAND/UL 10*3/mm3 862-869 1853/04/14 mean platelet volume 10.9 fL 7.5-12.5 Lab Report: LIPID PANEL, TSH/899, T4, FREE/866 - Chemistry cholesterol, serum 220 mg/dL 193-566 0488/04/14 HDL cholesterol, serum 30 mg/dL > OR=40 triglyceride, serum, fasting 466 mg/dL <150 LDL cholesterol, serum SEE NOTE mg/dL (calc) mg/dL <130 cholesterol/HDL ratio, serum 7.3 (calc) < OR=5.0 Lab Report: Prostatic Specific Ag - Chemistry prostate specific antigen 1.80 ng/mL 0.00-4.00 Lab Report: VITAMIN D, 25-HYDROXY/03838 - Chemistry vitamin D 25-hydroxy, serum 25 ng/mL 30-100 Office Visit: Confusion, dizziness after fall - Basic LDL target level 130 mg/dL Office Visit: Confusion, dizziness after fall - Chemistry HDL cholesterol, serum, target level 40 mg/dL triglyceride, target level 150 mg/dL cholesterol, target level 200 mg/dL Encounters Code Encounter Date Provider Facility CPT-88538 Level 4 Est. Patient 15:18:19 CDT Robbie Busby MD [facility] CPT-20085 Level 3 Est. Patient 09:00:37 CDT Rober Rodríguez APRN [facility] CPT-35129 Level 3 Est. Patient 16:07:10 CDT Robbie Busby MD [facility] CPT-20474 Level 4 Est. Patient 11:56:16 CDT Erin Garsia [facility] CPT-51291 Level 3 Est. Patient 17:48:02 CDT Robbie Busby MD [facility] CPT-03891 Level 4 Est. Patient 12:00:49 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 Rober Rodríguez [facility] CPT-94860 Level 3 Est. Patient 09:16:37 CDT Robbie Busby MD [facility] CPT-05691 Level 3 Est. Patient 19:38:43 CDT Robbie Busby MD [facility]-38206 Level 3 Est. Patient 11:53:38 CDT Robbie Busby MD [facility] CPT-05188 Level 4 Est. Patient 12:52:22 CDT Rober Rodríguez [facility] CPT-69794 Level 4 Est. Patient 22:55:17 CDT Robbie Busby MD [facility]-92750 Level 3 Est. Patient 12:38:24 CDT Desmond Diaz DO [facility] CPT-35212 Level 4 Est. 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 Patient 14:50:10 CDT Robbie Busby MD [facility] CPT-30006 Level 4 Est. Patient 23:30:43 CDT Robbie Busby MD [facility] CPT-66224 Level 4 Est. Patient 10:30:43 CDT Robbie Busby MD [facility] CPT-19842 Level 3 Est. Patient 17:08:12 CDT Alex ALVAREZ [facility] CPT-48530 Level 4 Est. Patient 17:51:38 CDT Robbie Busby MD [facility] CPT-77617 Level 4 Est. Patient 14:00:21 CDT Robbie Busby MD [facility] CPT-86135 Level 4 Est. Patient 12:46:48 CDT Robbie Busby MD [facility] CPT-71179 Level 4 Est. Patient 13:34:33 CDT Robbie Busby MD [facility] CPT-42368 Level 4 Est. Patient 16:58:28 CDT Robbie Busby MD [facility] CPT-09949 Level 3 Est. Patient 19:36:53 CDT Alex ALVAREZ [facility] CPT-93169 Level 3 Est. Patient 12:58:15 CDT Robbie Busby MD [facility] Procedures Code Procedure Name Date Entry Date Standard Description CPT-G0439 [facility] Annual Wellness Exam 16:47:44 CDT CPT-J1071 Depo Testosterone 200mg 09:06:28 CDT CPT-37541 Abx/Therapy Injection 09:06:28 CDT CPT-J1071 Depo Testosterone 200mg 08:30:01 CDT CPT-85950 Abx/Therapy Injection 08:30:01 CDT CPT-J1071 Depo Testosterone 200mg 08:24:00 CDT CPT-02691 Abx/Therapy Injection 08:24:00 CDT CPT-14249 Venipuncture Draw Fee 14:39:06 CDT CPT-33093 Ribs unilateral 2V - XRAY USE ONLY 12:10:11 CDT CPT-62586 First Vx - Ix admin for Medicare patients 16:32:53 CDT CPT-39295 Boostrix Intramuscular Suspension 5-2.5-18.5 16:32:53 CDT CPT-53041 TB Skin Test 11:42:28 CDT CPT-02840 Tdap 7yrs or > 11:42:28 CDT CPT-J0696 Rocephin 1000 mg (Ceftriaxone) 17:43:43 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 CPT-J1040 Depo Medrol 80 mg (Methyl Prednisolone Acetate) 17:43: 43 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 CPT-J1100 Decadron 8mg (Dexamethasone) 17:43:42 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 CPT-04227 Abx/Therapy 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 CPT-74009 Abx/Therapy 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 CPT-J1040 Depo Medrol 80 mg (Methyl Prednisolone Acetate) 09:43: 34 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 CPT-J1100 Decadron 8mg (Dexamethasone) 09:43:34 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 CPT-J0696 Rocephin 1gm Inj Solr 09:43:34 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 CPT-43762 Wound Culture - LAB USE ONLY 14:00:21 CDT CPT-I/D I/D Abscess 09:16:37 CDT CPT-91697 Venipuncture Draw Fee 15:20:23 CDT CPT-39788 Microalbumin - LAB USE ONLY 16:02:19 CDT CPT-23131 CBC - LAB USE ONLY 16:02:19 CDT CPT-57232 Venipuncture Draw Fee 16:02:19 CDT CPT-G0438 Initial Annual Wellness Exam 08:10:28 CDT CPT-54581 Venipuncture Draw Fee 13:07:17 CDT CPT-G0008 Administration of Influenza Virus Vaccine 16:09:59 CDT CPT-94305 Fluzone Quadrivalent Intramuscular Suspension 0.5 ML 16: 09:59 CDT CPT-79167 Spec Collection and Handling Fee 15:05:50 CDT
--- OUTSIDE RECORDS SUMMARY | 2018-04-18 13:17 | XMS REPORT | Clinical Summary ---
Author Author Admin, AKUA Organization [facility] Address Unknown Phone [...] Name NDC Status Provider Patient Instruction NYSTATIN [id number] UNIT/ML M/T SUSP 5mL po QID x 10 days NYSTATIN [id number] No Longer Active Erin Garsia APRN Active PREDNISONE 20 MG TAB 1 tablet twice daily for 2 days, then 1 tablet once daily for 2 days PREDNISONE 86170549241 No Longer Active Robbie Busby MD Active CEFDINIR 300 MG ORAL CAPS Take 1 cap po bid x 10 days CEFDINIR 95131193891 No Longer Active Robbie Busby MD Active AMLODIPINE BESYLATE 10 MG TABS 1 tablet by mouth daily AMLODIPINE BESYLATE 71875016594 Active Robbie Busby MD Active CARVEDILOL 25 MG TABS 1 & 1/2 TAB po BID CARVEDILOL 07040101332 Active Robbie Busby MD Active VITAMIN D3 70324 UNIT CAPS 2 CAPS PO WEEKLY CHOLECALCIFEROL 01914337052 Active Erin Garsia FLOW COORDINATOR Active NEXIUM 40 MG CPDR 1 cap by mouth daily ESOMEPRAZOLE MAGNESIUM 25385661077 Active Gali Raida Active PROTONIX 40 MG SOLR 1 po qday for acid reflux PANTOPRAZOLE SODIUM 74003947520 No Longer Active Galileonila Negro Active BETADINE 10 % EXT SOLN wash with solution to treat follicultis POVIDONE-IODINE 51984759705 Active Robbie Busby MD Active KEFLEX 500 MG CAP 1 po TID x 10 days CEPHALEXIN 82057348292 No Longer Active Robbie Busby MD Active FIORICET 50-300-40 MG ORAL CAPS take 1 tab po qday prn migraines. [id number] 88571141785 Active Robbie Busby MD Active TOPIRAMATE 50 MG ORAL TABS take 1 tab po BID for migraines. TOPIRAMATE 38498770031 Active Robbie Busby MD Active HYDRALAZINE HCL 50 MG ORAL TABS TWO BY MOUTH THREE TIMES DAILY HYDRALAZINE HCL 38313965153 Active Robbie Busby MD Active MECLIZINE HCL 25 MG TAB one 4 times a day as needed for dizziness MECLIZINE HCL 07353265084 Active Robbie Busby MD Active TRILEPTAL 150 MG ORAL TABS 1 TAB PO Q HS OXCARBAZEPINE 18280253116 Active Robbie Busby MD Active TEMAZEPAM 15 MG ORAL CAPS 1 TAB PO Q HS TEMAZEPAM 94485624046 Active Robbie Busby MD Active ALPRAZOLAM 2 MG ORAL TABS 1 TAB PO BID ALPRAZOLAM 80222003074 Active Robbie Busby MD Active FENOFIBRATE 145 MG TABS Take one by mouth daily FENOFIBRATE 05635404985 No Longer Active Robbie Busby MD Active LAMISIL 125 MG ORAL PACK 1 TAB PO DAILY TERBINAFINE HCL 23864584809 Active Robbie Busby MD Active SPIRONOLACTONE 50 MG TABS 1 tablet by mouth twice a day SPIRONOLACTONE 28984309040 No Longer Active Robbie Busby MD Active HYDRALAZINE HCL 25 MG TABS 1 tablet by mouth tid for hypertension HYDRALAZINE HCL 95659549759 No Longer Active Robbie Busby MD Active VIIBRYD 40 MG TABS take 1 tab po qday for depression. VILAZODONE HCL 65348063150 No Longer Active Robbie Busby MD Active TERBINAFINE HCL 250 MG TABS 1 tab po qday for foot infection 2014 TERBINAFINE HCL 12439584265 No Longer Active Robbie Busby MD Active GABAPENTIN 300 MG CAPS 1 po q hs for nerve pain GABAPENTIN 09526204650 Active Robbie Busby MD Active FLONASE 50 MCG/ACT SUSP 1 spray each nostril twice daily for allergies and runny nose FLUTICASONE PROPIONATE 79554989695 Active Robbie Busby MD Active CHERATUSSIN AC 100-10 MG/5ML ORAL SOLN 7.5 mL PO q 4-6 hrs PRN cough GUAIFENESIN-CODEINE 81324387754 No Longer Active Robbie Busby MD Active AZITHROMYCIN 250 MG ORAL TABS 2 tablets PO today---then, 1 tablet PO daily x 4 more days (and 1 optional refill) AZITHROMYCIN 19068179300 No Longer Active Robbie Busby MD Active CLONIDINE HCL 0.2 MG ORAL TABS 1 TAB BY MOUTH EVERY 8 HOURS CLONIDINE HCL 99584402015 Active Robbie Busby MD Active HYDROCHLOROTHIAZIDE TABS Take one by mouth daily HYDROCHLOROTHIAZIDE TABS 34284687236 Active Alex ALVAREZ Active NORVASC 10 MG TAB 1 tablet by mouth daily AMLODIPINE BESYLATE 36183682919 No Longer Active Alex ALVAREZ Active IMDUR 60 MG TAB CR take 1 tab po qday for blood pressure ISOSORBIDE MONONITRATE Active Robbie Busby MD Active ISOSORBIDE DINITRATE 30 MG TABS Take one by mouth daily ISOSORBIDE DINITRATE 62668654161 No Longer Active Robbie Busby MD Active VIIBRYD 40 MG TABS 1 TA B PO DAILY VILAZODONE HCL 93057071245 Active Robbie Busby MD Active LORATADINE 10 MG TABS 1 tablet by mouth daily for congestion and allergies. LORATADINE 48047142621 Active Robbie Busby MD Active ZITHROMAX 250 MG TAB 2 po today, then 1 po q days 2-5 AZITHROMYCIN 35665618261 No Longer Active Robbie Busby MD Active HYDROCODONE-ACETAMINOPHEN 5-325 MG TABS 1 tab by mouth BID prn back pain 2013 HYDROCODONE-ACETAMINOPHEN 37378133136 Active Robbie Busby MD Active [id number] 0.3 MG/24HR PTWK apply 2 patches q week for HTN CLONIDINE HCL 58874977585 Active Robbie Busby MD Active NITROSTAT 0.4 MG SUBL PRN NITROGLYCERIN 47076917747 Active Robbie Busby MD Active DOXAZOSIN MESYLATE 4 MG TABS Take one by mouth daily DOXAZOSIN MESYLATE 04649933689 Active Robbie Busby MD Active TOPROL XL 200 MG [id number] Take one by mouth daily METOPROLOL SUCCINATE 63074775088 Active Robbie Busby MD Active VENLAFAXINE HCL ER 150 MG [id number] Take one by mouth daily VENLAFAXINE HCL 32573352614 Active Robbie Busby MD Active LIPITOR 40 MG TABS Take one by mouth daily ATORVASTATIN CALCIUM 26579258491 Active Robbie Busby MD Active ISOSORBIDE DINITRATE 30 MG TABS Take one by mouth daily ISOSORBIDE DINITRATE 30 MG TABS 480638 ISOSORBIDE DINITRATE Inactive NORVASC 10 MG TAB 1 tablet by mouth daily NORVASC 10 MG TAB 594735 AMLODIPINE BESYLATE Inactive AZITHROMYCIN 250 MG ORAL TABS 2 tablets PO today---then, 1 tablet PO daily x 4 more days (and 1 optional refill) AZITHROMYCIN 250 MG ORAL TABS 8694957 AZITHROMYCIN Inactive CHERATUSSIN AC 100-10 MG/5ML ORAL SOLN 7.5 mL PO q 4-6 hrs PRN cough CHERATUSSIN AC 100-10 MG/5ML ORAL SOLN 530755 GUAIFENESIN- CODEINE Inactive VIIBRYD 40 MG TABS take 1 tab po qday for depression. VIIBRYD 40 MG TABS VILAZODONE HCL Inactive HYDRALAZINE HCL 25 MG TABS 1 tablet by mouth tid for hypertension HYDRALAZINE HCL 25 MG TABS 865117 HYDRALAZINE HCL Inactive SPIRONOLACTONE 50 MG TABS 1 tablet by mouth twice a day SPIRONOLACTONE 50 MG TABS 939510 SPIRONOLACTONE Inactive FENOFIBRATE 145 MG TABS Take one by mouth daily FENOFIBRATE 145 MG TABS 596584 FENOFIBRATE Inactive PROTONIX 40 MG SOLR 1 po qday for acid reflux PROTONIX 40 MG SOLR 366952 PANTOPRAZOLE SODIUM Inactive CEFDINIR 300 MG ORAL CAPS Take 1 cap po bid x 10 days CEFDINIR 300 MG ORAL CAPS 498444 CEFDINIR Inactive PREDNISONE 20 MG TAB 1 tablet twice daily for 2 days, then 1 tablet once daily for 2 days PREDNISONE 20 MG TAB 668652 PREDNISONE Inactive NYSTATIN 574534 UNIT/ML M/T SUSP 5mL po QID x 10 days NYSTATIN 467585 UNIT/ML M/T SUSP 973284 NYSTATIN Inactive ZITHROMAX 250 MG TAB 2 po today, then 1 po q days 2-5 ZITHROMAX 250 MG TAB 2497349 AZITHROMYCIN Inactive TERBINAFINE HCL 250 MG TABS 1 tab po qday for foot infection 2014 TERBINAFINE HCL 250 MG TABS 951093 TERBINAFINE HCL Inactive KEFLEX 500 MG CAP 1 po TID x 10 days KEFLEX 500 MG CAP 725230 CEPHALEXIN Inactive Advance Directives Directive Description Start [...] Acid - Chemistry sodium, serum 139 mmol/L 150-523 2053/04/22 carbon dioxide, venous blood 29.4 mmol/L 21.0-32.0 [...] to Follow Negative Lab Report: VITAMIN D, 25-HYDROXY/[id number] - Chemistry vitamin D 25-hydroxy, serum 23 ng/mL 30-100 Encounters Code Encounter Date Provider Facility CPT-55702 Level 4 Est. Patient 22:55:17 CDT Robbie Busby MD [facility] CPT-69158 Level 3 Est. Patient 12:38:24 CDT Desmond Diaz DO [facility] CPT-06273 Level 4 Est. Patient 11:25:03 [employer] Robbie Busby MD [facility] CPT-05777 Level 4 Est. Patient 14:50:10 CDT Robbie Busby MD [facility] CPT-26281 Level 4 Est. Patient 23:30:43 CDT Robbie Busby MD [facility] CPT-10690 Level 4 Est. Patient 10:30:43 CDT Robbie Bsuby MD [facility] CPT-12111 Level 3 Est. Patient 17:08:12 CDT Alex ALVAREZ [facility] CPT-21343 Level 4 Est. Patient 17:51:38 CDT Robbie Busby MD [facility] CPT-89068 Level 4 Est. Patient 14:00:21 CDT Robbie Busby MD [facility] CPT-20580 Level 4 Est. Patient 12:46:48 CDT Robbie Busby MD [facility] CPT-15752 Level 4 Est. Patient 13:34:33 CDT Robbie Busby MD [facility] CPT-11878 Level 4 Est. Patient 16:58:28 CDT Robbie Busby MD [facility] CPT-45852 Level 3 Est. Patient 19:36:53 CDT Alex Shaw [facility] CPT-76520 Level 3 Est. Patient 12:58:15 CDT Robbie Busby MD [facility] Procedures Code Procedure Name Date Entry Date Standard Description CPT-58294 Microalbumin - LAB USE ONLY 16:02:19 CDT CPT-55150 CBC - LAB USE ONLY 16:02:19 CDT CPT-95189 Venipuncture Draw Fee 16:02:19 CDT CPT-G0438 Initial Annual Wellness Exam 08:10:28 CDT CPT-70194 Venipuncture Draw Fee 13:07:17 CDT CPT-G0008 Administration of Influenza Virus Vaccine 16:09:59 CDT CPT-10470 Fluzone Quadrivalent Intramuscular Suspension 0.5 ML 16: 09:59 CDT CPT-39597 Spec Collection and Handling Fee 15:05:50 CDT
--- OUTSIDE RECORDS SUMMARY | 2018-04-18 13:18 | XMS REPORT | Clinical Summary ---
Author Author Admin, AKUA Organization [employer] Address Unknown Phone Unavailable Allergies, Adverse Reactions, [...] muscle spasm/pain for 10 days CYCLOBENZAPRINE HCL [id number] Active JONATHAN Moncada Active GUAIFENESIN 600 MG [id number] 1 tab po q am GUAIFENESIN 39976427477 Active Rober Rodríguez APRN Active FLUTICASONE PROPIONATE 50 MCG/ACT SUSP 2 sprays per nostril bid for 1 week, then 1 spray bid FLUTICASONE PROPIONATE 29439253515 Active Rober Rodríguez APRN Active HYDRALAZINE HCL 25 MG ORAL TABS Take 1 tab BID. HYDRALAZINE HCL 28499141750 Active Rober Rodríguez APRN Active VITAMIN D3 30762 UNIT ORAL TABS 2 po weekly CHOLECALCIFEROL 20400981801 Active JONATHAN Moncada Active OXYCODONE HCL ER 10 MG ORAL T12A 1 tab po 3 times qd. OXYCODONE HCL 32860365064 Active Robbie Busby MD Active NITROSTAT 0.4 MG SUBL PRN NITROGLYCERIN 67596877498 No Longer Active Robbie Busby MD Active LORATADINE 10 MG TABS 1 tablet by mouth daily for congestion and allergies. LORATADINE 72218749344 No Longer Active Robbie Busby MD Active FLONASE 50 MCG/ACT SUSP 1 spray each nostril twice daily for allergies and runny nose FLUTICASONE PROPIONATE 10646596749 No Longer Active Robbie Busby MD Active FIORICET 50-300-40 MG ORAL CAPS take 1 tab po qday prn migraines. [id number] 85656460190 No Longer Active Robbie Busby MD Active VITAMIN D3 56527 UNIT CAPS 2 CAPS PO WEEKLY CHOLECALCIFEROL 41485226843 No Longer Active Robbie Busby MD Active CYCLOBENZAPRINE HCL 10 MG TABS 1 tablet by mouth three times daily as needed for muscle spasm/pain for 10 days CYCLOBENZAPRINE HCL 28472983998 No Longer Active Robbie Busby MD Active PREDNISONE 20 MG TAB take 3 tabs daily for 3 days, 2 tabs daily for 3 days, 1 tab daily for 3 days, 1/2 tab daily for 4 days PREDNISONE 88163506258 No Longer Active Erin Garsia APRN Active CLONIDINE HCL 0.2 MG ORAL TABS 1 TAB BY MOUTH EVERY 8 HOURS 12/29 CLONIDINE HCL 45800859861 No Longer Active Erin Garsia APRN Active MECLIZINE HCL 25 MG TAB one 4 times a day as needed for dizziness MECLIZINE HCL 79708745544 No Longer Active Erin Garsia APRN Active SPIRONOLACTONE 25 MG TAB 4 tablets by mouth daily SPIRONOLACTONE 29736376140 No Longer Active Erin Garsia APRN Active LEVAQUIN 500 MG TAB 1 tablet by mouth daily for 7 days LEVOFLOXACIN 53225646631 No Longer Active Erin Garsia APRN Active BACTRIM DS 800-160 MG TAB 1 tab by mouth twice daily TRIMETHOPRIM-SULFAMETHOXAZOLE 90990134400 No Longer Active Robbie Busby MD Active HYDRALAZINE HCL 50 MG ORAL TABS TWO BY MOUTH THREE TIMES DAILY HYDRALAZINE HCL 06614110948 No Longer Active Jillina Frazell [employer] Active HYDROCODONE-ACETAMINOPHEN 5-325 MG TABS 1 tab by mouth BID prn back pain 2013 HYDROCODONE-ACETAMINOPHEN 39729467294 No Longer Active Jillina Frazell [employer] PO[employer] INSPECTOR Active HYDROCHLOROTHIAZIDE TABS Take one by mouth daily HYDROCHLOROTHIAZIDE TABS 31677111842 No Longer Active Jillina Frazell [employer] PO[employer] INSPECTOR Active LAMISIL 125 MG ORAL PACK 1 TAB PO DAILY TERBINAFINE HCL 93781182371 No Longer Active Jillina Frazell [employer] PO[employer] INSPECTOR Active TRILEPTAL 150 MG ORAL TABS 1 TAB PO Q HS OXCARBAZEPINE 91259438384 No Longer Active Jillina Frazell [employer] INSPECTOR Active BETADINE 10 % EXT SOLN wash with solution to treat follicultis POVIDONE-IODINE 45266858572 No Longer Active Jillina Frazell [employer] INSPECTOR Active NYSTATIN 149574 UNIT/ML M/T SUSP 5mL po QID x 10 days NYSTATIN 34652093920 No Longer Active Erin Garsia APRN Active PREDNISONE 20 MG TAB 1 tablet twice daily for 2 days, then 1 tablet once daily for 2 days PREDNISONE 68902922326 No Longer Active Robbie Busby MD Active CEFDINIR 300 MG ORAL CAPS Take 1 cap po bid x 10 days CEFDINIR 02086457637 No Longer Active Robbie Busby MD Active AMLODIPINE BESYLATE 10 MG TABS 1 tablet by mouth daily AMLODIPINE BESYLATE 34802745324 Active Robbie Busby MD Active CARVEDILOL 25 MG TABS 1 & 1/2 TAB po BID CARVEDILOL 70127717138 Active Robbie Busby MD Active NEXIUM 40 MG CPDR 1 cap by mouth daily ESOMEPRAZOLE MAGNESIUM 43639501976 Active Robbie Busby MD Active PROTONIX 40 MG SOLR 1 po qday for acid reflux PANTOPRAZOLE SODIUM 38363031518 No Longer Active Gali Raida Active KEFLEX 500 MG CAP 1 po TID x 10 days CEPHALEXIN 81015617291 No Longer Active Robbie Busby MD Active TOPIRAMATE 50 MG ORAL TABS take 1 tab po BID for migraines. TOPIRAMATE 33001804697 Active Robbie Busby MD Active TEMAZEPAM 15 MG ORAL CAPS 1 TAB PO Q HS TEMAZEPAM 87856156257 Active Robbie Busby MD Active ALPRAZOLAM 2 MG ORAL TABS 1 TAB PO BID ALPRAZOLAM 21100024409 Active Robbie Busby MD Active FENOFIBRATE 145 MG TABS Take one by mouth daily FENOFIBRATE 92148056444 No Longer Active Robbie Busby MD Active SPIRONOLACTONE 50 MG TABS 1 tablet by mouth twice a day SPIRONOLACTONE 81562786660 No Longer Active Robbie Busby MD Active HYDRALAZINE HCL 25 MG TABS 1 tablet by mouth tid for hypertension HYDRALAZINE HCL 74282860152 No Longer Active Robbie Busby MD Active VIIBRYD 40 MG TABS take 1 tab po qday for depression. VILAZODONE HCL 38911148918 No Longer Active Robbie Busby MD Active TERBINAFINE HCL 250 MG TABS 1 tab po qday for foot infection 2014 TERBINAFINE HCL 92059139475 No Longer Active Robbie Busby MD Active GABAPENTIN 300 MG CAPS 1 po q hs for nerve pain GABAPENTIN 63289141127 Active Robbie Busby MD Active CHERATUSSIN AC 100-10 MG/5ML ORAL SOLN 7.5 mL PO q 4-6 hrs PRN cough GUAIFENESIN-CODEINE 68619446406 No Longer Active Robbie Busby MD Active AZITHROMYCIN 250 MG ORAL TABS 2 tablets PO today---then, 1 tablet PO daily x 4 more days (and 1 optional refill) AZITHROMYCIN 47050147353 No Longer Active Robbie Busby MD Active NORVASC 10 MG TAB 1 tablet by mouth daily AMLODIPINE BESYLATE 83459778549 No Longer Active Alex ALVAREZ Active IMDUR 60 MG TAB CR take 1 tab po qday for blood pressure ISOSORBIDE MONONITRATE Active Robbie Bubsy MD Active ISOSORBIDE DINITRATE 30 MG TABS Take one by mouth daily ISOSORBIDE DINITRATE 53314211144 No Longer Active Robbie Busby MD Active VIIBRYD 40 MG TABS 1 TA B PO DAILY VILAZODONE HCL 49070400481 Active Robbie Busby MD Active ZITHROMAX 250 MG TAB 2 po today, then 1 po q days 2-5 AZITHROMYCIN 39517576003 No Longer Active Robbie Busby MD Active [id number] 0.3 MG/24HR PTWK apply 2 patches q week for HTN CLONIDINE HCL 79057575667 Active Robbie Busby MD Active DOXAZOSIN MESYLATE 4 MG TABS Take one by mouth daily DOXAZOSIN MESYLATE 35686074663 Active Robbie Busby MD Active TOPROL XL 200 MG [id number] Take one by mouth daily METOPROLOL SUCCINATE 72818775389 Active Robbie Busby MD Active VENLAFAXINE HCL ER 150 MG [id number] Take one by mouth daily VENLAFAXINE HCL 74577216932 Active Robbie Busby MD Active LIPITOR 40 MG TABS Take one by mouth daily ATORVASTATIN CALCIUM 90406553763 Active Robbie Busby MD Active ISOSORBIDE DINITRATE 30 MG TABS Take one by mouth daily ISOSORBIDE DINITRATE 30 MG TABS 760294 ISOSORBIDE DINITRATE Inactive NORVASC 10 MG TAB 1 tablet by mouth daily NORVASC 10 MG TAB 108893 AMLODIPINE BESYLATE Inactive AZITHROMYCIN 250 MG ORAL TABS 2 tablets PO today---then, 1 tablet PO daily x 4 more days (and 1 optional refill) AZITHROMYCIN 250 MG ORAL TABS 4558017 AZITHROMYCIN Inactive CHERATUSSIN AC 100-10 MG/5ML ORAL SOLN 7.5 mL PO q 4-6 hrs PRN cough CHERATUSSIN AC 100-10 MG/5ML ORAL SOLN 854730 GUAIFENESIN- CODEINE Inactive VIIBRYD 40 MG TABS take 1 tab po qday for depression. VIIBRYD 40 MG TABS VILAZODONE HCL Inactive HYDRALAZINE HCL 25 MG TABS 1 tablet by mouth tid for hypertension HYDRALAZINE HCL 25 MG TABS 660044 HYDRALAZINE HCL Inactive SPIRONOLACTONE 50 MG TABS 1 tablet by mouth twice a day SPIRONOLACTONE 50 MG TABS 716842 SPIRONOLACTONE Inactive FENOFIBRATE 145 MG TABS Take one by mouth daily FENOFIBRATE 145 MG TABS 176477 FENOFIBRATE Inactive PROTONIX 40 MG SOLR 1 po qday for acid reflux PROTONIX 40 MG SOLR 282853 PANTOPRAZOLE SODIUM Inactive CEFDINIR 300 MG ORAL CAPS Take 1 cap po bid x 10 days CEFDINIR 300 MG ORAL CAPS 226920 CEFDINIR Inactive PREDNISONE 20 MG TAB 1 tablet twice daily for 2 days, then 1 tablet once daily for 2 days PREDNISONE 20 MG TAB 306550 PREDNISONE Inactive NYSTATIN 772951 UNIT/ML M/T SUSP 5mL po QID x 10 days NYSTATIN 076901 UNIT/ML M/T SUSP 160278 NYSTATIN Inactive BETADINE 10 % EXT SOLN wash with solution to treat follicultis BETADINE 10 % EXT SOLN 1444737 POVIDONE-IODINE Inactive TRILEPTAL 150 MG ORAL TABS 1 TAB PO Q HS TRILEPTAL 150 MG ORAL TABS 522331 OXCARBAZEPINE Inactive LAMISIL 125 MG ORAL PACK 1 TAB PO DAILY LAMISIL 125 MG ORAL PACK TERBINAFINE HCL Inactive HYDROCHLOROTHIAZIDE TABS Take one by mouth daily HYDROCHLOROTHIAZIDE TABS HYDROCHLOROTHIAZIDE TABS Inactive HYDROCODONE-ACETAMINOPHEN 5-325 MG TABS 1 tab by mouth BID prn back pain 2013 HYDROCODONE-ACETAMINOPHEN 5-325 MG TABS 188865 HYDROCODONE -ACETAMINOPHEN Inactive HYDRALAZINE HCL 50 MG ORAL TABS TWO BY MOUTH THREE TIMES DAILY HYDRALAZINE HCL 50 MG ORAL TABS 199479 HYDRALAZINE HCL Inactive LEVAQUIN 500 MG TAB 1 tablet by mouth daily for 7 days LEVAQUIN 500 MG TAB 077145 LEVOFLOXACIN Inactive SPIRONOLACTONE 25 MG TAB 4 tablets by mouth daily SPIRONOLACTONE 25 MG TAB 871675 SPIRONOLACTONE Inactive MECLIZINE HCL 25 MG TAB one 4 times a day as needed for dizziness MECLIZINE HCL 25 MG TAB 504533 MECLIZINE HCL Inactive CLONIDINE HCL 0.2 MG ORAL TABS 1 TAB BY MOUTH EVERY 8 HOURS 12/29 CLONIDINE HCL 0.2 MG ORAL TABS 422349 CLONIDINE HCL Inactive CYCLOBENZAPRINE HCL 10 MG TABS 1 tablet by mouth three times daily as needed for muscle spasm/pain for 10 days CYCLOBENZAPRINE HCL 10 MG TABS 341554 CYCLOBENZAPRINE HCL Inactive VITAMIN D3 62958 UNIT CAPS 2 CAPS PO WEEKLY VITAMIN D3 60264 UNIT CAPS CHOLECALCIFEROL Inactive FIORICET 50-300-40 MG ORAL CAPS take 1 tab po qday prn migraines. FIORICET 50-300-40 MG ORAL CAPS 015349 [id number] Inactive FLONASE 50 MCG/ACT SUSP 1 spray each nostril twice daily for allergies and runny nose FLONASE 50 MCG/ACT SUSP 9937749 FLUTICASONE PROPIONATE Inactive LORATADINE 10 MG TABS 1 tablet by mouth daily for congestion and allergies. LORATADINE 10 MG TABS 752644 LORATADINE Inactive NITROSTAT 0.4 MG SUBL PRN NITROSTAT 0.4 MG SUBL 872484 NITROGLYCERIN Inactive ZITHROMAX 250 MG TAB 2 po today, then 1 po q days 2-5 ZITHROMAX 250 MG TAB 5697292 AZITHROMYCIN Inactive TERBINAFINE HCL 250 MG TABS 1 tab po qday for foot infection 2014 TERBINAFINE HCL 250 MG TABS 267865 TERBINAFINE HCL Inactive KEFLEX 500 MG CAP 1 po TID x 10 days KEFLEX 500 MG CAP 478951 CEPHALEXIN Inactive BACTRIM DS 800-160 MG TAB 1 tab by mouth twice daily BACTRIM DS 800-160 MG TAB 455544 TRIMETHOPRIM-SULFAMETHOXAZOLE Inactive PREDNISONE 20 MG TAB take 3 tabs daily for 3 days, 2 tabs daily for 3 days, 1 tab daily for 3 days, 1/2 tab daily for 4 days PREDNISONE 20 MG TAB 936062 PREDNISONE Inactive Advance Directives Directive Description Start [...] AUTO - Chemistry sodium, serum 142 mmol/L [phone]/07/17 carbon dioxide, venous blood 28.2 mmol/L 21.0-32.0 [...] % 11.0-15.0 platelet count 185 THOUSAND/UL 10*3/mm3 629-375 3463/04/14 mean platelet volume 10.9 fL 7.5-12.5 Lab Report: LIPID PANEL, TSH/899, T4, FREE/866 - Chemistry cholesterol, serum 220 mg/dL 778-499 8008/04/14 HDL cholesterol, serum 30 mg/dL > OR=40 triglyceride, serum, fasting 466 mg/dL <150 LDL cholesterol, serum SEE NOTE mg/dL (calc) mg/dL <130 cholesterol/HDL ratio, serum 7.3 (calc) < OR=5.0 Lab Report: MICROALB/CREAT W/RATIO - Chemistry albumin/creatinine ratio, urine < 30 mg/g mg/g{creat} 0-29 Lab Report: MICROALB/CREAT W/RATIO - Lab microalbumin, urine 80 0-19 Lab Report: VITAMIN D, 25-HYDROXY/39510 - Chemistry vitamin D 25-hydroxy, serum 25 ng/mL 30-100 Office Visit: Confusion, dizziness after fall - Basic LDL target level 130 mg/dL Office Visit: Confusion, dizziness after fall - Chemistry HDL cholesterol, serum, target level 40 mg/dL triglyceride, target level 150 mg/dL cholesterol, target level 200 mg/dL Encounters Code Encounter Date Provider Facility CPT-52062 Level 3 Est. Patient 09:00:37 CDT Rober Rodríguez [facility] CPT-11174 Level 3 Est. Patient 16:07:10 CDT Robbie Busby MD [facility] CPT-24010 Level 4 Est. Patient 11:56:16 CDT Erin Garsia [facility] CPT-44436 Level 3 Est. Patient 17:48:02 CDT Robbie Busby MD [facility] CPT-22915 Level 4 Est. Patient 12:00:49 NORMALIZER Rober Rodríguez [facility] CPT-98699 Level 3 Est. Patient 09:16:37 CDT Robbie Busby MD [facility] CPT-49854 Level 3 Est. Patient 19:38:43 CDT Robbie Busby MD [facility] CPT-09002 Level 3 Est. Patient 11:53:38 CDT Robbie Busby MD [facility] CPT-94619 Level 4 Est. Patient 12:52:22 CDT Rober Rodríguez [facility] CPT-49222 Level 4 Est. Patient 22:55:17 CDT Robbie Busby MD [facility] CPT-91561 Level 3 Est. Patient 12:38:24 CDT Desmond Diaz DO [facility] CPT-01733 Level 4 Est. Patient 11:25:03 NORMALIZER Robbie Busby MD [facility] CPT-88759 Level 4 Est. Patient 14:50:10 CDT Robbie Busby MD [facility] CPT-95943 Level 4 Est. Patient 23:30:43 CDT Robbie Busby MD [facility] CPT-97617 Level 4 Est. Patient 10:30:43 CDT Robbie Busby MD [facility] CPT-39449 Level 3 Est. Patient 17:08:12 CDT Alex Shaw [facility] CPT-13791 Level 4 Est. Patient 17:51:38 CDT Robbie uBsby MD [facility] CPT-90539 Level 4 Est. Patient 14:00:21 CDT Robbie Busby MD [facility] CPT-15671 Level 4 Est. Patient 12:46:48 CDT Robbie Busby MD [facility] CPT-42261 Level 4 Est. Patient 13:34:33 CDT Robbie Busby MD [facility] CPT-58059 Level 4 Est. Patient 16:58:28 CDT Robbie Busby MD [facility] CPT-49834 Level 3 Est. Patient 19:36:53 CDT Alex Shaw [facility] CPT-30198 Level 3 Est. Patient 12:58:15 CDT Robbie Busby MD [facility] Procedures Code Procedure Name Date Entry Date Standard Description CPT-54222 Venipuncture Draw Fee 14:39:06 CDT CPT-41063 Ribs unilateral 2V - XRAY USE ONLY 12:10:11 CDT CPT-88315 First Vx - Ix admin for Medicare patients 16:32:53 CDT CPT-10195 Boostrix Intramuscular Suspension 5-2.5-18.5 16:32:53 CDT CPT-41874 TB Skin Test 11:42:28 CDT CPT-68059 Tdap 7yrs or > 11:42:28 CDT CPT-J0696 Rocephin 1000 mg (Ceftriaxone) 17:43:43 NORMALIZER CPT-J1040 Depo Medrol 80 mg (Methyl Prednisolone Acetate) 17:43: 43 NORMALIZER CPT-J1100 Decadron 8mg (Dexamethasone) 17:43:42 NORMALIZER CPT-35303 Abx/Therapy Injection 17:43:42 NORMALIZER CPT-90236 Abx/Therapy Injection 17:43:42 NORMALIZER CPT-J1040 Depo Medrol 80 mg (Methyl Prednisolone Acetate) 09:43: 34 NORMALIZER CPT-J1100 Decadron 8mg (Dexamethasone) 09:43:34 NORMALIZER CPT-J0696 Rocephin 1gm Inj Solr 09:43:34 NORMALIZER CPT-80686 Wound Culture - LAB USE ONLY 14:00:21 CDT CPT-I/D I/D Abscess 09:16:37 CDT CPT-89431 Venipuncture Draw Fee 15:20:23 CDT CPT-51814 Microalbumin - LAB USE ONLY 16:02:19 CDT CPT-29818 CBC - LAB USE ONLY 16:02:19 CDT CPT-66388 Venipuncture Draw Fee 16:02:19 CDT CPT-G0438 Initial Annual Wellness Exam 08:10:28 CDT CPT-63369 Venipuncture Draw Fee 13:07:17 CDT CPT-G0008 Administration of Influenza Virus Vaccine 16:09:59 CDT CPT-28800 Fluzone Quadrivalent Intramuscular Suspension 0.5 ML 16: 09:59 CDT CPT-80348 Spec Collection and Handling Fee 15:05:50 CDT
--- OUTSIDE RECORDS SUMMARY | 2018-04-18 13:19 | XMS REPORT | Clinical Summary ---
Author Author Admin, [facility] Organization [facility] Address Unknown Phone Unavailable Allergies, Adverse [...] by mouth daily for 7 days LEVOFLOXACIN 00843396717 Active Erin Garsia APRN Active BACTRIM DS 800-160 MG TAB 1 tab by mouth twice daily TRIMETHOPRIM-SULFAMETHOXAZOLE 25793825379 No Longer Active Robbie Busby MD Active SPIRONOLACTONE 25 MG TAB 4 tablets by mouth daily SPIRONOLACTONE 07879133722 Active Robbie Busby MD Active HYDRALAZINE HCL 50 MG ORAL TABS TWO BY MOUTH THREE TIMES DAILY HYDRALAZINE HCL 30007124673 No Longer Active Andrellina Zulemal [employer] Active HYDROCODONE-ACETAMINOPHEN 5-325 MG TABS 1 tab by mouth BID prn back pain 2013 HYDROCODONE-ACETAMINOPHEN 78844700321 No Longer Active Jillina Frazell [employer]TER OVER[employer] Active HYDROCHLOROTHIAZIDE TABS Take one by mouth daily HYDROCHLOROTHIAZIDE TABS 78563876348 No Longer Active Jillina Frazell [employer]TER OVERLOCK Active LAMISIL 125 MG ORAL PACK 1 TAB PO DAILY TERBINAFINE HCL 46987343839 No Longer Active Jillina Frazell [employer]TER OVER[employer] Active TRILEPTAL 150 MG ORAL TABS 1 TAB PO Q HS OXCARBAZEPINE 44583031583 No Longer Active Jillina Frazell [employer]TER OVERLOCK Active BETADINE 10 % EXT SOLN wash with solution to treat follicultis POVIDONE-IODINE 66577928231 No Longer Active Jillina Frazell [employer]TER OVERLOCK Active NYSTATIN 656958 UNIT/ML M/T SUSP 5mL po QID x 10 days NYSTATIN 04693883642 No Longer Active Erin Garsia APRN Active PREDNISONE 20 MG TAB 1 tablet twice daily for 2 days, then 1 tablet once daily for 2 days PREDNISONE 05116599449 No Longer Active Robbie Busby MD Active CEFDINIR 300 MG ORAL CAPS Take 1 cap po bid x 10 days CEFDINIR 99743626871 No Longer Active Robbie Busby MD Active AMLODIPINE BESYLATE 10 MG TABS 1 tablet by mouth daily AMLODIPINE BESYLATE 47339779240 Active Robbie Busby MD Active CARVEDILOL 25 MG TABS 1 & 1/2 TAB po BID CARVEDILOL 53543348661 Active Erin Garsia APRN Active VITAMIN D3 34287 UNIT CAPS 2 CAPS PO WEEKLY CHOLECALCIFEROL 85311197327 Active Erin Garsia APRN Active NEXIUM 40 MG CPDR 1 cap by mouth daily ESOMEPRAZOLE MAGNESIUM 63164698017 Active Robbie Busby MD Active PROTONIX 40 MG SOLR 1 po qday for acid reflux PANTOPRAZOLE SODIUM 59876357871 No Longer Active Gali Raida Active KEFLEX 500 MG CAP 1 po TID x 10 days CEPHALEXIN 35549922599 No Longer Active Robbie Busby MD Active FIORICET 50-300-40 MG ORAL CAPS take 1 tab po qday prn migraines. [id number] 78677505154 Active Robbie Busby MD Active TOPIRAMATE 50 MG ORAL TABS take 1 tab po BID for migraines. TOPIRAMATE 79770463629 Active Robbie Busby MD Active MECLIZINE HCL 25 MG TAB one 4 times a day as needed for dizziness MECLIZINE HCL 33961840703 Active Robbie Busby MD Active TEMAZEPAM 15 MG ORAL CAPS 1 TAB PO Q HS TEMAZEPAM 32325108068 Active Robbie Busby MD Active ALPRAZOLAM 2 MG ORAL TABS 1 TAB PO BID ALPRAZOLAM 08148360604 Active Robbie Busby MD Active FENOFIBRATE 145 MG TABS Take one by mouth daily FENOFIBRATE 08961929839 No Longer Active Robbie Busby MD Active SPIRONOLACTONE 50 MG TABS 1 tablet by mouth twice a day SPIRONOLACTONE 00547706874 No Longer Active Robbie Busby MD Active HYDRALAZINE HCL 25 MG TABS 1 tablet by mouth tid for hypertension HYDRALAZINE HCL 88745606309 No Longer Active Robbie Busby MD Active VIIBRYD 40 MG TABS take 1 tab po qday for depression. VILAZODONE HCL 96123830721 No Longer Active Robbie Busby MD Active TERBINAFINE HCL 250 MG TABS 1 tab po qday for foot infection 2014 TERBINAFINE HCL 50608307525 No Longer Active Robbie Busby MD Active GABAPENTIN 300 MG CAPS 1 po q hs for nerve pain GABAPENTIN 90577473571 Active Robbie Busby MD Active FLONASE 50 MCG/ACT SUSP 1 spray each nostril twice daily for allergies and runny nose FLUTICASONE PROPIONATE 50490070263 Active Robbie Busby MD Active CHERATUSSIN AC 100-10 MG/5ML ORAL SOLN 7.5 mL PO q 4-6 hrs PRN cough GUAIFENESIN-CODEINE 80724174798 No Longer Active Robbie Busby MD Active AZITHROMYCIN 250 MG ORAL TABS 2 tablets PO today---then, 1 tablet PO daily x 4 more days (and 1 optional refill) AZITHROMYCIN 66788847091 No Longer Active Robbie Busby MD Active CLONIDINE HCL 0.2 MG ORAL TABS 1 TAB BY MOUTH EVERY 8 HOURS CLONIDINE HCL 41968828388 Active Robbie Busby MD Active NORVASC 10 MG TAB 1 tablet by mouth daily AMLODIPINE BESYLATE 27644089845 No Longer Active Alex ALVAREZ Active IMDUR 60 MG TAB CR take 1 tab po qday for blood pressure ISOSORBIDE MONONITRATE Active Robbie Busby MD Active ISOSORBIDE DINITRATE 30 MG TABS Take one by mouth daily ISOSORBIDE DINITRATE 06436375258 No Longer Active Robbie Busby MD Active VIIBRYD 40 MG TABS 1 TA B PO DAILY VILAZODONE HCL 08575530013 Active Robbie Busby MD Active LORATADINE 10 MG TABS 1 tablet by mouth daily for congestion and allergies. LORATADINE 53323873420 Active Robbie Busby MD Active ZITHROMAX 250 MG TAB 2 po today, then 1 po q days 2-5 AZITHROMYCIN 68991064572 No Longer Active Robbie Busby MD Active [id number] 0.3 MG/24HR PTWK apply 2 patches q week for HTN CLONIDINE HCL 16488244713 Active Robbie Busby MD Active NITROSTAT 0.4 MG SUBL PRN NITROGLYCERIN 67822351392 Active Robbie Busby MD Active DOXAZOSIN MESYLATE 4 MG TABS Take one by mouth daily DOXAZOSIN MESYLATE 69560646259 Active Erin Garsia APRN Active TOPROL XL 200 MG [id number] Take one by mouth daily METOPROLOL SUCCINATE 78063457236 Active Robbie Busby MD Active VENLAFAXINE HCL ER 150 MG [id number] Take one by mouth daily VENLAFAXINE HCL 93555474872 Active Robbie Busby MD Active LIPITOR 40 MG TABS Take one by mouth daily ATORVASTATIN CALCIUM 19313864192 Active Robbie Busby MD Active ISOSORBIDE DINITRATE 30 MG TABS Take one by mouth daily ISOSORBIDE DINITRATE 30 MG TABS 630329 ISOSORBIDE DINITRATE Inactive NORVASC 10 MG TAB 1 tablet by mouth daily NORVASC 10 MG TAB 849956 AMLODIPINE BESYLATE Inactive AZITHROMYCIN 250 MG ORAL TABS 2 tablets PO today---then, 1 tablet PO daily x 4 more days (and 1 optional refill) AZITHROMYCIN 250 MG ORAL TABS 9336446 AZITHROMYCIN Inactive CHERATUSSIN AC 100-10 MG/5ML ORAL SOLN 7.5 mL PO q 4-6 hrs PRN cough CHERATUSSIN AC 100-10 MG/5ML ORAL SOLN 510785 GUAIFENESIN- CODEINE Inactive VIIBRYD 40 MG TABS take 1 tab po qday for depression. VIIBRYD 40 MG TABS VILAZODONE HCL Inactive HYDRALAZINE HCL 25 MG TABS 1 tablet by mouth tid for hypertension HYDRALAZINE HCL 25 MG TABS 890303 HYDRALAZINE HCL Inactive SPIRONOLACTONE 50 MG TABS 1 tablet by mouth twice a day SPIRONOLACTONE 50 MG TABS 779359 SPIRONOLACTONE Inactive FENOFIBRATE 145 MG TABS Take one by mouth daily FENOFIBRATE 145 MG TABS 418739 FENOFIBRATE Inactive PROTONIX 40 MG SOLR 1 po qday for acid reflux PROTONIX 40 MG SOLR 499280 PANTOPRAZOLE SODIUM Inactive CEFDINIR 300 MG ORAL CAPS Take 1 cap po bid x 10 days CEFDINIR 300 MG ORAL CAPS 525110 CEFDINIR Inactive PREDNISONE 20 MG TAB 1 tablet twice daily for 2 days, then 1 tablet once daily for 2 days PREDNISONE 20 MG TAB 126372 PREDNISONE Inactive NYSTATIN 041100 UNIT/ML M/T SUSP 5mL po QID x 10 days NYSTATIN 973866 UNIT/ML M/T SUSP 131736 NYSTATIN Inactive BETADINE 10 % EXT SOLN wash with solution to treat follicultis BETADINE 10 % EXT SOLN 9856901 POVIDONE-IODINE Inactive TRILEPTAL 150 MG ORAL TABS 1 TAB PO Q HS TRILEPTAL 150 MG ORAL TABS 109530 OXCARBAZEPINE Inactive LAMISIL 125 MG ORAL PACK 1 TAB PO DAILY LAMISIL 125 MG ORAL PACK TERBINAFINE HCL Inactive HYDROCHLOROTHIAZIDE TABS Take one by mouth daily HYDROCHLOROTHIAZIDE TABS HYDROCHLOROTHIAZIDE TABS Inactive HYDROCODONE-ACETAMINOPHEN 5-325 MG TABS 1 tab by mouth BID prn back pain 2013 HYDROCODONE-ACETAMINOPHEN 5-325 MG TABS 329202 HYDROCODONE -ACETAMINOPHEN Inactive HYDRALAZINE HCL 50 MG ORAL TABS TWO BY MOUTH THREE TIMES DAILY HYDRALAZINE HCL 50 MG ORAL TABS 111839 HYDRALAZINE HCL Inactive ZITHROMAX 250 MG TAB 2 po today, then 1 po q days 2-5 ZITHROMAX 250 MG TAB 7336341 AZITHROMYCIN Inactive TERBINAFINE HCL 250 MG TABS 1 tab po qday for foot infection 2014 TERBINAFINE HCL 250 MG TABS 484623 TERBINAFINE HCL Inactive KEFLEX 500 MG CAP 1 po TID x 10 days KEFLEX 500 MG CAP 924369 CEPHALEXIN Inactive BACTRIM DS 800-160 MG TAB 1 tab by mouth twice daily BACTRIM DS 800-160 MG TAB 229395 TRIMETHOPRIM-SULFAMETHOXAZOLE Inactive Advance Directives Directive Description Start [...] Acid - Chemistry sodium, serum 139 mmol/L 546-418 0531/04/22 carbon dioxide, venous blood 29.4 mmol/L 21.0-32.0 [...] urine 80 0-19 Lab Report: VITAMIN D, 25-HYDROXY/53762 - Chemistry vitamin D 25-hydroxy, serum 23 ng/mL 30-100 Encounters Code Encounter Date Provider Facility CPT-18794 Level 4 Est. 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 Patient 09:16:37 CDT Robbie Busby MD [facility] CPT-00579 Level 3 Est. Patient 19:38:43 CDT Robbie Busby MD [facility] CPT-06555 Level 3 Est. Patient 11:53:38 CDT Robbie Busby MD [facility] CPT-89729 Level 4 Est. Patient 12:52:22 CDT Rober Rodríguez [facility] CPT-50602 Level 4 Est. Patient 22:55:17 CDT Robbie Busby MD [facility] CPT-53513 Level 3 Est. Patient 12:38:24 CDT Desmond Diza DO [facility] CPT-53017 Level 4 Est. 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 Patient 14:50:10 CDT Robbie Busby MD [facility] CPT-14849 Level 4 Est. Patient 23:30:43 CDT Robbie Busby MD [facility] CPT-29409 Level 4 Est. Patient 10:30:43 CDT Robbie Busby MD [facility] CPT-98177 Level 3 Est. Patient 17:08:12 CDT Alex Shaw [facility] CPT-87722 Level 4 Est. Patient 17:51:38 CDT Robbie Busby MD [facility] CPT-43090 Level 4 Est. Patient 14:00:21 CDT Robbie Busby MD [facility] CPT-76129 Level 4 Est. Patient 12:46:48 CDT Robbie Busby MD [facility] CPT-40793 Level 4 Est. Patient 13:34:33 CDT Robbie Busby MD [facility] CPT-37208 Level 4 Est. Patient 16:58:28 CDT Robbie Busby MD [facility] CPT-48146 Level 3 Est. Patient 19:36:53 CDT Alex ALVAREZ [facility] CPT-93004 Level 3 Est. 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 CPT-J1040 Depo Medrol 80 mg (Methyl Prednisolone Acetate) 09:43: 34 MACHINE TOOL DRESSER CPT-J1100 Decadron 8mg (Dexamethasone) 09:43:34 MACHINE TOOL DRESSER CPT-J0696 Rocephin 1gm Inj Solr 09:43:34 MACHINE TOOL DRESSER CPT-20585 Wound Culture - LAB USE ONLY 14:00:21 CDT CPT-I/D I/D Abscess 09:16:37 CDT CPT-31280 Venipuncture Draw Fee 15:20:23 CDT CPT-76443 Microalbumin - LAB USE ONLY 16:02:19 CDT CPT-74957 CBC - LAB USE ONLY 16:02:19 CDT CPT-48812 Venipuncture Draw Fee 16:02:19 CDT CPT-G0438 Initial Annual Wellness Exam 08:10:28 CDT CPT-31585 Venipuncture Draw Fee 13:07:17 CDT CPT-G0008 Administration of Influenza Virus Vaccine 16:09:59 CDT CPT-65662 Fluzone Quadrivalent Intramuscular Suspension 0.5 ML 16: 09:59 CDT CPT-28594 Spec Collection and Handling Fee 15:05:50 CDT
--- OUTSIDE RECORDS SUMMARY | 2018-04-18 13:20 | XMS REPORT | Clinical Summary ---
Author Author Admin, [facility] Organization [employer] [facility] Address Unknown Phone Unavailable Allergies, [...] Name NDC Status Provider Patient Instruction NYSTATIN 306960 UNIT/ML M/T SUSP 5mL po QID x 10 days NYSTATIN 37534945570 No Longer Active Erin Garsia APRN Active PREDNISONE 20 MG TAB 1 tablet twice daily for 2 days, then 1 tablet once daily for 2 days PREDNISONE 78899311073 No Longer Active Robbie Busby MD Active CEFDINIR 300 MG ORAL CAPS Take 1 cap po bid x 10 days CEFDINIR 88252118950 No Longer Active Robbie Busby MD Active AMLODIPINE BESYLATE 10 MG TABS 1 tablet by mouth daily AMLODIPINE BESYLATE 00959700093 Active oRbbie Busby MD Active CARVEDILOL 25 MG TABS 1 & 1/2 TAB po BID CARVEDILOL 60513485310 Active Robbie Busby MD Active VITAMIN D3 03450 UNIT CAPS 2 CAPS PO WEEKLY CHOLECALCIFEROL 50661287571 Active Erin Garsia [employer] Active NEXIUM 40 MG CPDR 1 cap by mouth daily ESOMEPRAZOLE MAGNESIUM 59639762100 Active Gali Negro Active PROTONIX 40 MG SOLR 1 po qday for acid reflux PANTOPRAZOLE SODIUM 50150720755 No Longer Active Gali Rajuan carlos Active BETADINE 10 % EXT SOLN wash with solution to treat follicultis POVIDONE-IODINE 85435788113 Active Robbie Busby MD Active KEFLEX 500 MG CAP 1 po TID x 10 days CEPHALEXIN 83073222935 No Longer Active Robbie Busby MD Active FIORICET 50-300-40 MG ORAL CAPS take 1 tab po qday prn migraines. [id number] 70154601022 Active Robbie Busby MD Active TOPIRAMATE 50 MG ORAL TABS take 1 tab po BID for migraines. TOPIRAMATE 32189072257 Active Robbie Busby MD Active HYDRALAZINE HCL 50 MG ORAL TABS TWO BY MOUTH THREE TIMES DAILY HYDRALAZINE HCL 67098245988 Active Robbie Busby MD Active MECLIZINE HCL 25 MG TAB one 4 times a day as needed for dizziness MECLIZINE HCL 88537054719 Active Robbie Busby MD Active TRILEPTAL 150 MG ORAL TABS 1 TAB PO Q HS OXCARBAZEPINE 16593838122 Active Robbie Busby MD Active TEMAZEPAM 15 MG ORAL CAPS 1 TAB PO Q HS TEMAZEPAM 52877464216 Active Robbie Busby MD Active ALPRAZOLAM 2 MG ORAL TABS 1 TAB PO BID ALPRAZOLAM 29856927322 Active Robbie Busby MD Active FENOFIBRATE 145 MG TABS Take one by mouth daily FENOFIBRATE 91913564412 No Longer Active Robbie Busby MD Active LAMISIL 125 MG ORAL PACK 1 TAB PO DAILY TERBINAFINE HCL 78053151313 Active Robbie Busby MD Active SPIRONOLACTONE 50 MG TABS 1 tablet by mouth twice a day SPIRONOLACTONE 74822885653 No Longer Active Robbie Busby MD Active HYDRALAZINE HCL 25 MG TABS 1 tablet by mouth tid for hypertension HYDRALAZINE HCL 85491378682 No Longer Active Robbie Busby MD Active VIIBRYD 40 MG TABS take 1 tab po qday for depression. VILAZODONE HCL 83783048905 No Longer Active Robbie Busby MD Active TERBINAFINE HCL 250 MG TABS 1 tab po qday for foot infection 2014 TERBINAFINE HCL 20724079341 No Longer Active Robbie Busby MD Active GABAPENTIN 300 MG CAPS 1 po q hs for nerve pain GABAPENTIN 64489490100 Active Robbie Busby MD Active FLONASE 50 MCG/ACT SUSP 1 spray each nostril twice daily for allergies and runny nose FLUTICASONE PROPIONATE 26792070682 Active Robbie Busby MD Active CHERATUSSIN AC 100-10 MG/5ML ORAL SOLN 7.5 mL PO q 4-6 hrs PRN cough GUAIFENESIN-CODEINE 10598589486 No Longer Active Robbie Busby MD Active AZITHROMYCIN 250 MG ORAL TABS 2 tablets PO today---then, 1 tablet PO daily x 4 more days (and 1 optional refill) AZITHROMYCIN 06101611732 No Longer Active Robbie Busby MD Active CLONIDINE HCL 0.2 MG ORAL TABS 1 TAB BY MOUTH EVERY 8 HOURS CLONIDINE HCL 29365211904 Active Robbie Busby MD Active HYDROCHLOROTHIAZIDE TABS Take one by mouth daily HYDROCHLOROTHIAZIDE TABS 94226333860 Active Alex ALVAREZ Active NORVASC 10 MG TAB 1 tablet by mouth daily AMLODIPINE BESYLATE 08062065002 No Longer Active Alex ALVAREZ Active IMDUR 60 MG TAB CR take 1 tab po qday for blood pressure ISOSORBIDE MONONITRATE Active Robbie Busby MD Active ISOSORBIDE DINITRATE 30 MG TABS Take one by mouth daily ISOSORBIDE DINITRATE 43572511884 No Longer Active Robbie Busby MD Active VIIBRYD 40 MG TABS 1 TA B PO DAILY VILAZODONE HCL 09146643473 Active Erin Garsia APRN Active LORATADINE 10 MG TABS 1 tablet by mouth daily for congestion and allergies. LORATADINE 99704270487 Active Robbie Busby MD Active ZITHROMAX 250 MG TAB 2 po today, then 1 po q days 2-5 AZITHROMYCIN 99388063340 No Longer Active Robbie Busby MD Active HYDROCODONE-ACETAMINOPHEN 5-325 MG TABS 1 tab by mouth BID prn back pain 2013 HYDROCODONE-ACETAMINOPHEN 71454567195 Active Robbie Busby MD Active [id number] 0.3 MG/24HR PTWK apply 2 patches q week for HTN CLONIDINE HCL 89815172505 Active Robbie Busby MD Active NITROSTAT 0.4 MG SUBL PRN NITROGLYCERIN 98364310249 Active Robbie Busby MD Active DOXAZOSIN MESYLATE 4 MG TABS Take one by mouth daily DOXAZOSIN MESYLATE 35901967502 Active Robbie Busby MD Active TOPROL XL 200 MG [id number] Take one by mouth daily METOPROLOL SUCCINATE 25802711479 Active Robbie Busby MD Active VENLAFAXINE HCL ER 150 MG [id number] Take one by mouth daily VENLAFAXINE HCL 97718420324 Active Robbie Busby MD Active LIPITOR 40 MG TABS Take one by mouth daily ATORVASTATIN CALCIUM 40937472197 Active Robbie Busby MD Active ISOSORBIDE DINITRATE 30 MG TABS Take one by mouth daily ISOSORBIDE DINITRATE 30 MG TABS 141019 ISOSORBIDE DINITRATE Inactive NORVASC 10 MG TAB 1 tablet by mouth daily NORVASC 10 MG TAB 862373 AMLODIPINE BESYLATE Inactive AZITHROMYCIN 250 MG ORAL TABS 2 tablets PO today---then, 1 tablet PO daily x 4 more days (and 1 optional refill) AZITHROMYCIN 250 MG ORAL TABS 6492431 AZITHROMYCIN Inactive CHERATUSSIN AC 100-10 MG/5ML ORAL SOLN 7.5 mL PO q 4-6 hrs PRN cough CHERATUSSIN AC 100-10 MG/5ML ORAL SOLN 540318 GUAIFENESIN- CODEINE Inactive VIIBRYD 40 MG TABS take 1 tab po qday for depression. VIIBRYD 40 MG TABS VILAZODONE HCL Inactive HYDRALAZINE HCL 25 MG TABS 1 tablet by mouth tid for hypertension HYDRALAZINE HCL 25 MG TABS 856084 HYDRALAZINE HCL Inactive SPIRONOLACTONE 50 MG TABS 1 tablet by mouth twice a day SPIRONOLACTONE 50 MG TABS 889923 SPIRONOLACTONE Inactive FENOFIBRATE 145 MG TABS Take one by mouth daily FENOFIBRATE 145 MG TABS 573807 FENOFIBRATE Inactive PROTONIX 40 MG SOLR 1 po qday for acid reflux PROTONIX 40 MG SOLR 991605 PANTOPRAZOLE SODIUM Inactive CEFDINIR 300 MG ORAL CAPS Take 1 cap po bid x 10 days CEFDINIR 300 MG ORAL CAPS 289992 CEFDINIR Inactive PREDNISONE 20 MG TAB 1 tablet twice daily for 2 days, then 1 tablet once daily for 2 days PREDNISONE 20 MG TAB 960647 PREDNISONE Inactive NYSTATIN 970300 UNIT/ML M/T SUSP 5mL po QID x 10 days NYSTATIN 650571 UNIT/ML M/T SUSP 332014 NYSTATIN Inactive ZITHROMAX 250 MG TAB 2 po today, then 1 po q days 2-5 ZITHROMAX 250 MG TAB 5291028 AZITHROMYCIN Inactive TERBINAFINE HCL 250 MG TABS 1 tab po qday for foot infection 2014 TERBINAFINE HCL 250 MG TABS 674705 TERBINAFINE HCL Inactive KEFLEX 500 MG CAP 1 po TID x 10 days KEFLEX 500 MG CAP 801834 CEPHALEXIN Inactive Advance Directives Directive Description Start [...] Acid - Chemistry sodium, serum 139 mmol/L 191-829 8004/04/22 carbon dioxide, venous blood 29.4 mmol/L 21.0-32.0 [...] PANEL - Chemistry cholesterol, serum 211 mg/dL 508-982 9616/08/31 triglyceride, serum, fasting 429 mg/dL 30-200 HDL [...] to Follow Negative Lab Report: VITAMIN D, 25-HYDROXY/46890 - Chemistry vitamin D 25-hydroxy, serum 23 ng/mL 30-100 Encounters Code Encounter Date Provider Facility CPT-18232 Level 4 Est. Patient 22:55:17 CDT Robbie Busby MD [facility] CPT-37533 Level 3 Est. Patient 12:38:24 CDT Desmond Diaz DO [facility] CPT-43588 Level 4 Est. 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 Patient 14:50:10 CDT Robbie Busby MD [facility]-14182 Level 4 Est. Patient 23:30:43 CDT Robbie Busby MD [facility] CPT-46860 Level 4 Est. Patient 10:30:43 CDT Robbie Busby MD [facility] CPT-54938 Level 3 Est. Patient 17:08:12 CDT Alex Shaw [facility] CPT-44171 Level 4 Est. Patient 17:51:38 CDT Robbie Busby MD [facility] CPT-11137 Level 4 Est. Patient 14:00:21 CDT Robbie Busby MD [facility] CPT-39529 Level 4 Est. Patient 12:46:48 CDT Robbie Busby MD [facility] CPT-70546 Level 4 Est. Patient 13:34:33 CDT Robbie Busby MD [facility] CPT-20358 Level 4 Est. Patient 16:58:28 CDT Robbie Busby MD [facility] CPT-78550 Level 3 Est. Patient 19:36:53 CDT Alex W Cloven PA [facility] CPT-87022 Level 3 Est. Patient 12:58:15 CDT Robbie Busby MD [facility] Procedures Code Procedure Name Date Entry Date Standard Description CPT-G0438 Initial Annual Wellness Exam 08:10:28 CDT CPT-89459 Venipuncture Draw Fee 13:07:17 CDT CPT-G0008 Administration of Influenza Virus Vaccine 16:09:59 CDT CPT-45826 Fluzone Quadrivalent Intramuscular Suspension 0.5 ML 16: 09:59 CDT CPT-92237 Spec Collection and Handling Fee 15:05:50 CDT
--- OUTSIDE RECORDS SUMMARY | 2018-04-18 13:21 | XMS REPORT | Clinical Summary ---
Author Author Admin, [facility] Organization [facility] Address Unknown Phone Unavailable Allergies, [...] Status Provider Patient Instruction GUAIFENESIN 600 MG [id number] 1 tab po q am GUAIFENESIN 02107532713 Active Jillina Frazell PIPE AND TEST SUPERVISOR Active FLUTICASONE PROPIONATE 50 MCG/ACT SUSP 2 sprays per nostril bid for 1 week, then 1 spray bid FLUTICASONE PROPIONATE 47693151656 Active Jillina Frazell PIPE AND TEST SUPERVISOR Active HYDRALAZINE HCL 25 MG ORAL TABS Take 1 tab BID. HYDRALAZINE HCL 39129530376 Active Jillina Frazell PIPE AND TEST SUPERVISOR Active VITAMIN D3 91916 UNIT ORAL TABS 2 po weekly CHOLECALCIFEROL 13595962901 Active KATHIE MoncadaNara Active OXYCODONE HCL ER 10 MG ORAL T12A 1 tab po 3 times qd. OXYCODONE HCL 88596553359 Active Robbie Busby MD Active NITROSTAT 0.4 MG SUBL PRN NITROGLYCERIN 86539883257 No Longer Active Robbie Busby MD Active LORATADINE 10 MG TABS 1 tablet by mouth daily for congestion and allergies. LORATADINE 41143981003 No Longer Active Robbie Busby MD Active FLONASE 50 MCG/ACT SUSP 1 spray each nostril twice daily for allergies and runny nose FLUTICASONE PROPIONATE 39774351162 No Longer Active Robbie Busby MD Active FIORICET 50-300-40 MG ORAL CAPS take 1 tab po qday prn migraines. [id number] 74802944136 No Longer Active Robbie Busby MD Active VITAMIN D3 94471 UNIT CAPS 2 CAPS PO WEEKLY CHOLECALCIFEROL 32692839531 No Longer Active Robbie Busby MD Active CYCLOBENZAPRINE HCL 10 MG TABS 1 tablet by mouth three times daily as needed for muscle spasm/pain for 10 days CYCLOBENZAPRINE HCL 02380282915 No Longer Active Robbie Busby MD Active PREDNISONE 20 MG TAB take 3 tabs daily for 3 days, 2 tabs daily for 3 days, 1 tab daily for 3 days, 1/2 tab daily for 4 days PREDNISONE 81466659480 No Longer Active Erin Garsia APRN Active CLONIDINE HCL 0.2 MG ORAL TABS 1 TAB BY MOUTH EVERY 8 HOURS 12/29 CLONIDINE HCL 30352477679 No Longer Active Erin Garsia APRN Active MECLIZINE HCL 25 MG TAB one 4 times a day as needed for dizziness MECLIZINE HCL 77283344616 No Longer Active Erin Garsia APRN Active SPIRONOLACTONE 25 MG TAB 4 tablets by mouth daily SPIRONOLACTONE 87336066399 No Longer Active Erin Garsia APRN Active LEVAQUIN 500 MG TAB 1 tablet by mouth daily for 7 days LEVOFLOXACIN 86319788810 No Longer Active Erin Garsia APRN Active BACTRIM DS 800-160 MG TAB 1 tab by mouth twice daily TRIMETHOPRIM-SULFAMETHOXAZOLE 96862411709 No Longer Active Robbie Busby MD Active HYDRALAZINE HCL 50 MG ORAL TABS TWO BY MOUTH THREE TIMES DAILY HYDRALAZINE HCL 82957651377 No Longer Active Jillina Frazell PIPE AND TEST SUPERVISOR Active HYDROCODONE-ACETAMINOPHEN 5-325 MG TABS 1 tab by mouth BID prn back pain 2013 HYDROCODONE-ACETAMINOPHEN 66528260461 No Longer Active Jillina Frazell PIPE AND TEST SUPERVISOR Active HYDROCHLOROTHIAZIDE TABS Take one by mouth daily HYDROCHLOROTHIAZIDE TABS 34625285116 No Longer Active Jillina Frazell PIPE AND TEST SUPERVISOR Active LAMISIL 125 MG ORAL PACK 1 TAB PO DAILY TERBINAFINE HCL 66481371968 No Longer Active Jillina Frazell PIPE AND TEST SUPERVISOR Active TRILEPTAL 150 MG ORAL TABS 1 TAB PO Q HS OXCARBAZEPINE 19165547091 No Longer Active Jillina Frazell PIPE AND TEST SUPERVISOR Active BETADINE 10 % EXT SOLN wash with solution to treat follicultis POVIDONE-IODINE 49349395773 No Longer Active Jillina Frakierstenl PIPE AND TEST SUPERVISOR Active NYSTATIN 639132 UNIT/ML M/T SUSP 5mL po QID x 10 days NYSTATIN 78711360621 No Longer Active Erin Garsia APRN Active PREDNISONE 20 MG TAB 1 tablet twice daily for 2 days, then 1 tablet once daily for 2 days PREDNISONE 74700035983 No Longer Active Robbie Busby MD Active CEFDINIR 300 MG ORAL CAPS Take 1 cap po bid x 10 days CEFDINIR 88105214290 No Longer Active Robbie Busby MD Active AMLODIPINE BESYLATE 10 MG TABS 1 tablet by mouth daily AMLODIPINE BESYLATE 27581333809 Active Robbie Busby MD Active CARVEDILOL 25 MG TABS 1 & 1/2 TAB po BID CARVEDILOL 81644836083 Active Robbie Busby MD Active NEXIUM 40 MG CPDR 1 cap by mouth daily ESOMEPRAZOLE MAGNESIUM 21072859941 Active Robbie Busby MD Active PROTONIX 40 MG SOLR 1 po qday for acid reflux PANTOPRAZOLE SODIUM 80730585878 No Longer Active Gali Raida Active KEFLEX 500 MG CAP 1 po TID x 10 days CEPHALEXIN 12480030910 No Longer Active Robbie Busby MD Active TOPIRAMATE 50 MG ORAL TABS take 1 tab po BID for migraines. TOPIRAMATE 29363246974 Active Robbie Busby MD Active TEMAZEPAM 15 MG ORAL CAPS 1 TAB PO Q HS TEMAZEPAM 40860113239 Active Robbie Busby MD Active ALPRAZOLAM 2 MG ORAL TABS 1 TAB PO BID ALPRAZOLAM 61424799730 Active Robbie Busby MD Active FENOFIBRATE 145 MG TABS Take one by mouth daily FENOFIBRATE 95545812753 No Longer Active Robbie Busby MD Active SPIRONOLACTONE 50 MG TABS 1 tablet by mouth twice a day SPIRONOLACTONE 97172421507 No Longer Active Robbie Busby MD Active HYDRALAZINE HCL 25 MG TABS 1 tablet by mouth tid for hypertension HYDRALAZINE HCL 09770373398 No Longer Active Robbie Busby MD Active VIIBRYD 40 MG TABS take 1 tab po qday for depression. VILAZODONE HCL 59221651542 No Longer Active Robbie Busby MD Active TERBINAFINE HCL 250 MG TABS 1 tab po qday for foot infection 2014 TERBINAFINE HCL 52552809845 No Longer Active Robbie Busby MD Active GABAPENTIN 300 MG CAPS 1 po q hs for nerve pain GABAPENTIN 87109687448 Active Robbie Busby MD Active CHERATUSSIN AC 100-10 MG/5ML ORAL SOLN 7.5 mL PO q 4-6 hrs PRN cough GUAIFENESIN-CODEINE 53404782211 No Longer Active Robbie Busby MD Active AZITHROMYCIN 250 MG ORAL TABS 2 tablets PO today---then, 1 tablet PO daily x 4 more days (and 1 optional refill) AZITHROMYCIN 09092823484 No Longer Active Robbie Busby MD Active NORVASC 10 MG TAB 1 tablet by mouth daily AMLODIPINE BESYLATE 87368639463 No Longer Active Alex ALVAREZ Active IMDUR 60 MG TAB CR take 1 tab po qday for blood pressure ISOSORBIDE MONONITRATE Active Robbie Busby MD Active ISOSORBIDE DINITRATE 30 MG TABS Take one by mouth daily ISOSORBIDE DINITRATE 61384862487 No Longer Active Robbie Busby MD Active VIIBRYD 40 MG TABS 1 TA B PO DAILY VILAZODONE HCL 12402063980 Active Robbie Busby MD Active ZITHROMAX 250 MG TAB 2 po today, then 1 po q days 2-5 AZITHROMYCIN 53527782081 No Longer Active Robbie Busby MD Active [id number]-[id number]-3 0.3 MG/24HR PTWK apply 2 patches q week for HTN CLONIDINE HCL 61573087970 Active Robbie Busby MD Active DOXAZOSIN MESYLATE 4 MG TABS Take one by mouth daily DOXAZOSIN MESYLATE 92067199238 Active Robbie Busby MD Active TOPROL XL 200 MG [id number] Take one by mouth daily METOPROLOL SUCCINATE 75813998121 Active Robbie Busby MD Active VENLAFAXINE HCL ER 150 MG [id number] Take one by mouth daily VENLAFAXINE HCL 35727062056 Active Robbie Busby MD Active LIPITOR 40 MG TABS Take one by mouth daily ATORVASTATIN CALCIUM 25263173771 Active Robbie Busby MD Active ISOSORBIDE DINITRATE 30 MG TABS Take one by mouth daily ISOSORBIDE DINITRATE 30 MG TABS 426202 ISOSORBIDE DINITRATE Inactive NORVASC 10 MG TAB 1 tablet by mouth daily NORVASC 10 MG TAB 295648 AMLODIPINE BESYLATE Inactive AZITHROMYCIN 250 MG ORAL TABS 2 tablets PO today---then, 1 tablet PO daily x 4 more days (and 1 optional refill) AZITHROMYCIN 250 MG ORAL TABS 9094275 AZITHROMYCIN Inactive CHERATUSSIN AC 100-10 MG/5ML ORAL SOLN 7.5 mL PO q 4-6 hrs PRN cough CHERATUSSIN AC 100-10 MG/5ML ORAL SOLN 157801 GUAIFENESIN- CODEINE Inactive VIIBRYD 40 MG TABS take 1 tab po qday for depression. VIIBRYD 40 MG TABS VILAZODONE HCL Inactive HYDRALAZINE HCL 25 MG TABS 1 tablet by mouth tid for hypertension HYDRALAZINE HCL 25 MG TABS 529908 HYDRALAZINE HCL Inactive SPIRONOLACTONE 50 MG TABS 1 tablet by mouth twice a day SPIRONOLACTONE 50 MG TABS 738025 SPIRONOLACTONE Inactive FENOFIBRATE 145 MG TABS Take one by mouth daily FENOFIBRATE 145 MG TABS 298661 FENOFIBRATE Inactive PROTONIX 40 MG SOLR 1 po qday for acid reflux PROTONIX 40 MG SOLR 832175 PANTOPRAZOLE SODIUM Inactive CEFDINIR 300 MG ORAL CAPS Take 1 cap po bid x 10 days CEFDINIR 300 MG ORAL CAPS 049388 CEFDINIR Inactive PREDNISONE 20 MG TAB 1 tablet twice daily for 2 days, then 1 tablet once daily for 2 days PREDNISONE 20 MG TAB 336698 PREDNISONE Inactive NYSTATIN 362902 UNIT/ML M/T SUSP 5mL po QID x 10 days NYSTATIN 669175 UNIT/ML M/T SUSP 172257 NYSTATIN Inactive BETADINE 10 % EXT SOLN wash with solution to treat follicultis BETADINE 10 % EXT SOLN 9294500 POVIDONE-IODINE Inactive TRILEPTAL 150 MG ORAL TABS 1 TAB PO Q HS TRILEPTAL 150 MG ORAL TABS 574954 OXCARBAZEPINE Inactive LAMISIL 125 MG ORAL PACK 1 TAB PO DAILY LAMISIL 125 MG ORAL PACK TERBINAFINE HCL Inactive HYDROCHLOROTHIAZIDE TABS Take one by mouth daily HYDROCHLOROTHIAZIDE TABS HYDROCHLOROTHIAZIDE TABS Inactive HYDROCODONE-ACETAMINOPHEN 5-325 MG TABS 1 tab by mouth BID prn back pain 2013 HYDROCODONE-ACETAMINOPHEN 5-325 MG TABS 414119 HYDROCODONE -ACETAMINOPHEN Inactive HYDRALAZINE HCL 50 MG ORAL TABS TWO BY MOUTH THREE TIMES DAILY HYDRALAZINE HCL 50 MG ORAL TABS 384562 HYDRALAZINE HCL Inactive LEVAQUIN 500 MG TAB 1 tablet by mouth daily for 7 days LEVAQUIN 500 MG TAB 788002 LEVOFLOXACIN Inactive SPIRONOLACTONE 25 MG TAB 4 tablets by mouth daily SPIRONOLACTONE 25 MG TAB 955147 SPIRONOLACTONE Inactive MECLIZINE HCL 25 MG TAB one 4 times a day as needed for dizziness MECLIZINE HCL 25 MG TAB 075285 MECLIZINE HCL Inactive CLONIDINE HCL 0.2 MG ORAL TABS 1 TAB BY MOUTH EVERY 8 HOURS 12/29 CLONIDINE HCL 0.2 MG ORAL TABS 225097 CLONIDINE HCL Inactive CYCLOBENZAPRINE HCL 10 MG TABS 1 tablet by mouth three times daily as needed for muscle spasm/pain for 10 days CYCLOBENZAPRINE HCL 10 MG TABS 282088 CYCLOBENZAPRINE HCL Inactive VITAMIN D3 29349 UNIT CAPS 2 CAPS PO WEEKLY VITAMIN D3 63427 UNIT CAPS CHOLECALCIFEROL Inactive FIORICET 50-300-40 MG ORAL CAPS take 1 tab po qday prn migraines. FIORICET 50-300-40 MG ORAL CAPS 438246 [id number] Inactive FLONASE 50 MCG/ACT SUSP 1 spray each nostril twice daily for allergies and runny nose FLONASE 50 MCG/ACT SUSP 0789944 FLUTICASONE PROPIONATE Inactive LORATADINE 10 MG TABS 1 tablet by mouth daily for congestion and allergies. LORATADINE 10 MG TABS 294457 LORATADINE Inactive NITROSTAT 0.4 MG SUBL PRN NITROSTAT 0.4 MG SUBL 330572 NITROGLYCERIN Inactive ZITHROMAX 250 MG TAB 2 po today, then 1 po q days 2-5 ZITHROMAX 250 MG TAB 9636547 AZITHROMYCIN Inactive TERBINAFINE HCL 250 MG TABS 1 tab po qday for foot infection 2014 TERBINAFINE HCL 250 MG TABS 760322 TERBINAFINE HCL Inactive KEFLEX 500 MG CAP 1 po TID x 10 days KEFLEX 500 MG CAP 978159 CEPHALEXIN Inactive BACTRIM DS 800-160 MG TAB 1 tab by mouth twice daily BACTRIM DS 800-160 MG TAB 555441 TRIMETHOPRIM-SULFAMETHOXAZOLE Inactive PREDNISONE 20 MG TAB take 3 tabs daily for 3 days, 2 tabs daily for 3 days, 1 tab daily for 3 days, 1/2 tab daily for 4 days PREDNISONE 20 MG TAB 455839 PREDNISONE Inactive Advance Directives Directive Description Start [...] % 11.6-14.8 platelet count 229 10^3/MM^3 10*3/mm3 715-134 5023/09/06 mean corpuscular volume, RBC 90 fL 80-97 [...] % 11.0-15.0 platelet count 185 THOUSAND/UL 10*3/mm3 557-808 0039/04/14 mean platelet volume 10.9 fL 7.5-12.5 Lab Report: LIPID PANEL, TSH/899, T4, FREE/866 - Chemistry cholesterol, serum 220 mg/dL 214-341 0462/04/14 HDL cholesterol, serum 30 mg/dL > OR=40 [...] mg/dL Encounters Code Encounter Date Provider Facility CPT-35259 Level 3 Est. Patient 09:00:37 CDT Rober Rodríguez [facility] CPT-04658 Level 3 Est. Patient 16:07:10 CDT Robbie Busby MD [facility] CPT-00723 Level 4 Est. Patient 11:56:16 CDT Erin Garsia [facility] CPT-59337 Level 3 Est. Patient 17:48:02 CDT Robbie Busby MD [facility] CPT-23352 Level 4 Est. 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 Patient 09:16:37 CDT Robbie Busby MD [facility] CPT-87732 Level 3 Est. Patient 19:38:43 CDT Robbie Busby MD [facility] CPT-58317 Level 3 Est. Patient 11:53:38 CDT Robbie Busby MD [facility] CPT-56787 Level 4 Est. Patient 12:52:22 CDT Rober Rodríguez APRN [facility] CPT-63273 Level 4 Est. Patient 22:55:17 CDT Robbie Busby MD [facility] CPT-96877 Level 3 Est. Patient 12:38:24 CDT Desmond Diaz DO [facility] CPT-06435 Level 4 Est. 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 Patient 14:50:10 CDT Robbie Busby MD [facility]-95340 Level 4 Est. Patient 23:30:43 CDT Robbie Busby MD [facility]-41092 Level 4 Est. Patient 10:30:43 CDT Robbie Busby MD [facility] CPT-07789 Level 3 Est. Patient 17:08:12 CDT Alex ALVAREZ [facility] CPT-53773 Level 4 Est. Patient 17:51:38 CDT Robbie Busby MD [facility] CPT-64004 Level 4 Est. Patient 14:00:21 CDT Robbie Busby MD [facility]-58614 Level 4 Est. Patient 12:46:48 CDT Robbie Busby MD [facility] CPT-49695 Level 4 Est. Patient 13:34:33 CDT Robbie Busby MD [facility]-25364 Level 4 Est. Patient 16:58:28 CDT Robbie Busby MD [facility] CPT-51996 Level 3 Est. Patient 19:36:53 CDT Alex W Cloven PA [facility] CPT-94621 Level 3 Est. Patient 12:58:15 CDT Robbie Busby MD [facility] Procedures Code Procedure Name Date Entry Date Standard Description CPT-78130 Venipuncture Draw Fee 14:39:06 CDT CPT-99904 Ribs unilateral 2V - XRAY USE ONLY 12:10:11 CDT CPT-17707 First Vx - Ix admin for Medicare patients 16:32:53 CDT CPT-45919 Boostrix Intramuscular Suspension 5-2.5-18.5 16:32:53 CDT CPT-25231 TB Skin Test 11:42:28 CDT CPT-60480 Tdap 7yrs or > 11:42:28 CDT CPT-J0696 Rocephin 1000 mg (Ceftriaxone) 17:43:43 GEOTHERMAL OPERATING ENGINEER CPT-J1040 Depo Medrol 80 mg (Methyl Prednisolone Acetate) 17:43: 43 GEOTHERMAL OPERATING ENGINEER CPT-J1100 Decadron 8mg (Dexamethasone) 17:43:42 GEOTHERMAL OPERATING ENGINEER CPT-76189 Abx/Therapy Injection 17:43:42 GEOTHERMAL OPERATING ENGINEER CPT-13767 Abx/Therapy Injection 17:43:42 GEOTHERMAL OPERATING ENGINEER CPT-J1040 Depo Medrol 80 mg (Methyl Prednisolone Acetate) 09:43: 34 GEOTHERMAL OPERATING ENGINEER CPT-J1100 Decadron 8mg (Dexamethasone) 09:43:34 GEOTHERMAL OPERATING ENGINEER CPT-J0696 Rocephin 1gm Inj Solr 09:43:34 GEOTHERMAL OPERATING ENGINEER CPT-14004 Wound Culture - LAB USE ONLY 14:00:21 CDT CPT-I/D I/D Abscess 09:16:37 CDT CPT-80929 Venipuncture Draw Fee 15:20:23 CDT CPT-81431 Microalbumin - LAB USE ONLY 16:02:19 CDT CPT-05565 CBC - LAB USE ONLY 16:02:19 CDT CPT-46410 Venipuncture Draw Fee 16:02:19 CDT CPT-G0438 Initial Annual Wellness Exam 08:10:28 CDT CPT-73285 Venipuncture Draw Fee 13:07:17 CDT CPT-G0008 Administration of Influenza Virus Vaccine 16:09:59 CDT CPT-91198 Fluzone Quadrivalent Intramuscular Suspension 0.5 ML 16: 09:59 CDT CPT-82041 Spec Collection and Handling Fee 15:05:50 CDT
--- OUTSIDE RECORDS SUMMARY | 2018-04-18 13:22 | XMS REPORT | Clinical Summary ---
Author Author Admin, [facility] Organization [facility] Address Unknown Phone Unavailable Allergies, Adverse Reactions, Alerts Allergy Name Reaction Description Start Date Severity Status Provider No Known Allergies JONATHAN Prudy Conditions or Problems Problem Name Problem Code [...] tablet once daily for 2 days PREDNISONE 27331474925 Active Desmond Diaz DO Active NEXIUM 40 MG CPDR 1 cap by mouth daily ESOMEPRAZOLE MAGNESIUM 87090540974 Active Gali Raida Active PROTONIX 40 MG SOLR 1 po qday for acid reflux PANTOPRAZOLE SODIUM 50252531285 No Longer Active Gali Rajuan carlos Active BETADINE 10 % EXT SOLN wash with solution to treat follicultis POVIDONE-IODINE 91456770299 Active Robbei Busby MD Active KEFLEX 500 MG CAP 1 po TID x 10 days CEPHALEXIN 94966617622 No Longer Active Robbie Busby MD Active FIORICET 50-300-40 MG ORAL CAPS take 1 tab po qday prn migraines. [id number] 96792145449 Active Robbie Busby MD Active TOPIRAMATE 50 MG ORAL TABS take 1 tab po BID for migraines. TOPIRAMATE 84220889192 Active Robbie Busby MD Active HYDRALAZINE HCL 50 MG ORAL TABS TWO BY MOUTH THREE TIMES DAILY HYDRALAZINE HCL 28458243231 Active Robbie Busby MD Active MECLIZINE HCL 25 MG TAB one 4 times a day as needed for dizziness MECLIZINE HCL 62142164566 Active Robbie Busby MD Active TRILEPTAL 150 MG ORAL TABS 1 TAB PO Q HS OXCARBAZEPINE 27301120854 Active Robbie Busby MD Active TEMAZEPAM 15 MG ORAL CAPS 1 TAB PO Q HS TEMAZEPAM 32692196243 Active Robbie Busby MD Active ALPRAZOLAM 2 MG ORAL TABS 1 TAB PO BID ALPRAZOLAM 54276114902 Active Robbie Busby MD Active FENOFIBRATE 145 MG TABS Take one by mouth daily FENOFIBRATE 91763132063 No Longer Active Robbie Busby MD Active LAMISIL 125 MG ORAL PACK 1 TAB PO DAILY TERBINAFINE HCL 73606825197 Active Robbie Busby MD Active SPIRONOLACTONE 50 MG TABS 1 tablet by mouth twice a day SPIRONOLACTONE 67360892547 No Longer Active oRbbie Busby MD Active HYDRALAZINE HCL 25 MG TABS 1 tablet by mouth tid for hypertension HYDRALAZINE HCL 31203301762 No Longer Active Robbie Busby MD Active VIIBRYD 40 MG TABS take 1 tab po qday for depression. VILAZODONE HCL 61644101981 No Longer Active Robbie Busby MD Active TERBINAFINE HCL 250 MG TABS 1 tab po qday for foot infection 2014 TERBINAFINE HCL 40079634068 No Longer Active Robbie Busby MD Active GABAPENTIN 300 MG CAPS 1 po q hs for nerve pain GABAPENTIN 36833557335 Active Erin Garsia APRN Active FLONASE 50 MCG/ACT SUSP 1 spray each nostril twice daily for allergies and runny nose FLUTICASONE PROPIONATE 34737583705 Active Robbie Busby MD Active CHERATUSSIN AC 100-10 MG/5ML ORAL SOLN 7.5 mL PO q 4-6 hrs PRN cough GUAIFENESIN-CODEINE 06764853544 No Longer Active Robbie Busby MD Active AZITHROMYCIN 250 MG ORAL TABS 2 tablets PO today---then, 1 tablet PO daily x 4 more days (and 1 optional refill) AZITHROMYCIN 21570809791 No Longer Active Robbie Busby MD Active CLONIDINE HCL 0.2 MG ORAL TABS 1 TAB BY MOUTH EVERY 8 HOURS CLONIDINE HCL 96353114344 Active Robbie Busby MD Active HYDROCHLOROTHIAZIDE TABS Take one by mouth daily HYDROCHLOROTHIAZIDE TABS 55846039941 Active Alex ALVAREZ Active NORVASC 10 MG TAB 1 tablet by mouth daily AMLODIPINE BESYLATE 75040580887 No Longer Active Alex ALVAREZ Active IMDUR 60 MG TAB CR take 1 tab po qday for blood pressure ISOSORBIDE MONONITRATE Active Robbie Busby MD Active ISOSORBIDE DINITRATE 30 MG TABS Take one by mouth daily ISOSORBIDE DINITRATE 08798433080 No Longer Active Robbie Busby MD Active VIIBRYD 40 MG TABS 1 TA B PO DAILY VILAZODONE HCL 71670394122 Active Robbie Busby MD Active LORATADINE 10 MG TABS 1 tablet by mouth daily for congestion and allergies. LORATADINE 48792846185 Active Robbie Busby MD Active ZITHROMAX 250 MG TAB 2 po today, then 1 po q days 2-5 AZITHROMYCIN 87972809171 No Longer Active Robbie Busby MD Active HYDROCODONE-ACETAMINOPHEN 5-325 MG TABS 1 tab by mouth BID prn back pain 2013 HYDROCODONE-ACETAMINOPHEN 92988668117 Active Robbie Busby MD Active WVUNFFMP-BXN-2 0.3 MG/24HR PTWK apply 2 patches q week for HTN CLONIDINE HCL 15510389494 Active Robbie Busby MD Active NITROSTAT 0.4 MG SUBL PRN NITROGLYCERIN 87007289926 Active Robbie Busby MD Active DOXAZOSIN MESYLATE 4 MG TABS Take one by mouth daily DOXAZOSIN MESYLATE 06749058825 Active Robbie Busby MD Active TOPROL XL 200 MG [id number] Take one by mouth daily METOPROLOL SUCCINATE 45306277039 Active Robbie Busby MD Active VENLAFAXINE HCL ER 150 MG [id number] Take one by mouth daily VENLAFAXINE HCL 58492982693 Active Robbie Busby MD Active LIPITOR 40 MG TABS Take one by mouth daily ATORVASTATIN CALCIUM 76256552112 Active Robbie Busby MD Active ISOSORBIDE DINITRATE 30 MG TABS Take one by mouth daily ISOSORBIDE DINITRATE 30 MG TABS 047541 ISOSORBIDE DINITRATE Inactive NORVASC 10 MG TAB 1 tablet by mouth daily NORVASC 10 MG TAB 081100 AMLODIPINE BESYLATE Inactive AZITHROMYCIN 250 MG ORAL TABS 2 tablets PO today---then, 1 tablet PO daily x 4 more days (and 1 optional refill) AZITHROMYCIN 250 MG ORAL TABS 7922920 AZITHROMYCIN Inactive CHERATUSSIN AC 100-10 MG/5ML ORAL SOLN 7.5 mL PO q 4-6 hrs PRN cough CHERATUSSIN AC 100-10 MG/5ML ORAL SOLN 200510 GUAIFENESIN- CODEINE Inactive VIIBRYD 40 MG TABS take 1 tab po qday for depression. VIIBRYD 40 MG TABS VILAZODONE HCL Inactive HYDRALAZINE HCL 25 MG TABS 1 tablet by mouth tid for hypertension HYDRALAZINE HCL 25 MG TABS 166660 HYDRALAZINE HCL Inactive SPIRONOLACTONE 50 MG TABS 1 tablet by mouth twice a day SPIRONOLACTONE 50 MG TABS 167824 SPIRONOLACTONE Inactive FENOFIBRATE 145 MG TABS Take one by mouth daily FENOFIBRATE 145 MG TABS 073972 FENOFIBRATE Inactive PROTONIX 40 MG SOLR 1 po qday for acid reflux PROTONIX 40 MG SOLR PANTOPRAZOLE SODIUM Inactive ZITHROMAX 250 MG TAB 2 po today, then 1 po q days 2-5 ZITHROMAX 250 MG TAB 0837800 AZITHROMYCIN Inactive TERBINAFINE HCL 250 MG TABS 1 tab po qday for foot infection 2014 TERBINAFINE HCL 250 MG TABS 235285 TERBINAFINE HCL Inactive KEFLEX 500 MG CAP 1 po TID x 10 days KEFLEX 500 MG CAP 895004 CEPHALEXIN Inactive Vital Signs Date Name Value [...] PANEL - Chemistry cholesterol, serum 211 mg/dL 569-020 7807/08/31 triglyceride, serum, fasting 429 mg/dL 30-200 HDL [...] Negative Encounters Code Encounter Date Provider Facility [facility]-[id number] Level 3 Est. Patient 12:38:24 CDT Desmond Diaz DO [facility] CPT-31739 Level 4 Est. 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-29671 Level 4 Est. Patient 14:50:10 CDT Robbie Busby MD [facility]-83028 Level 4 Est. Patient 23:30:43 CDT Robbie Busby MD [facility]-01319 Level 4 Est. Patient 10:30:43 CDT Robbie Busby MD [facility]-64529 Level 3 Est. Patient 17:08:12 CDT Alex Shaw [facility] CPT-97775 Level 4 Est. Patient 17:51:38 CDT Robbie Busby MD [facility]-29700 Level 4 Est. Patient 14:00:21 CDT Robbie Busby MD [facility]-70359 Level 4 Est. Patient 12:46:48 CDT Robbie Busby MD [facility]-65435 Level 4 Est. Patient 13:34:33 CDT Robbie Busby MD [facility]-19121 Level 4 Est. Patient 16:58:28 CDT Robbie Busby MD [facility]-28796 Level 3 Est. Patient 19:36:53 CDT Alex Shaw [facility]-52351 Level 3 Est. Patient 12:58:15 CDT Robbie Busby MD [facility] Procedures Code Procedure Name Date Entry Date Standard Description CPT-G0008 Administration of Influenza Virus Vaccine 16:09:59 CDT CPT-86639 Fluzone Quadrivalent Intramuscular Suspension 0.5 ML 16: 09:59 CDT CPT-91463 Spec Collection and Handling Fee 15:05:50 CDT
--- OUTSIDE RECORDS SUMMARY | 2018-04-18 13:22 | XMS REPORT | Clinical Summary ---
Author Author Admin, E Organization [facility] Address Unknown Phone Unavailable Allergies, Adverse [...] muscle spasm/pain for 10 days CYCLOBENZAPRINE HCL 90007806421 Active Erin Garsia APRN Active PREDNISONE 20 MG TAB take 3 tabs daily for 3 days, 2 tabs daily for 3 days, 1 tab daily for 3 days, 1/2 tab daily for 4 days PREDNISONE 68057346612 No Longer Active Erin Garsia APRN Active CLONIDINE HCL 0.2 MG ORAL TABS 1 TAB BY MOUTH EVERY 8 HOURS 12/29 CLONIDINE HCL 92298096165 No Longer Active Erin Garsia APRN Active MECLIZINE HCL 25 MG TAB one 4 times a day as needed for dizziness MECLIZINE HCL 17862788029 No Longer Active Erin Garsia APRN Active SPIRONOLACTONE 25 MG TAB 4 tablets by mouth daily SPIRONOLACTONE 50631709401 No Longer Active Erin Garsia APRN Active LEVAQUIN 500 MG TAB 1 tablet by mouth daily for 7 days LEVOFLOXACIN 38959312318 No Longer Active Erin Garsia APRN Active BACTRIM DS 800-160 MG TAB 1 tab by mouth twice daily TRIMETHOPRIM-SULFAMETHOXAZOLE 51424701115 No Longer Active Robbie Busby MD Active HYDRALAZINE HCL 50 MG ORAL TABS TWO BY MOUTH THREE TIMES DAILY HYDRALAZINE HCL 11716851345 No Longer Active Jillina Frazell [employer] Active HYDROCODONE-ACETAMINOPHEN 5-325 MG TABS 1 tab by mouth BID prn back pain 2013 HYDROCODONE-ACETAMINOPHEN 91263871767 No Longer Active Jillina Frazell [employer] Active HYDROCHLOROTHIAZIDE TABS Take one by mouth daily HYDROCHLOROTHIAZIDE TABS 08941049925 No Longer Active Jillina Frazell [employer] Active LAMISIL 125 MG ORAL PACK 1 TAB PO DAILY TERBINAFINE HCL 15009486768 No Longer Active Jillina Frazell [employer] Active TRILEPTAL 150 MG ORAL TABS 1 TAB PO Q HS OXCARBAZEPINE 21455519212 No Longer Active Jillina Frazell [employer] Active BETADINE 10 % EXT SOLN wash with solution to treat follicultis POVIDONE-IODINE 09526977715 No Longer Active Jillina Frazell [employer] Active NYSTATIN 515183 UNIT/ML M/T SUSP 5mL po QID x 10 days NYSTATIN 99190385394 No Longer Active Erin Garsia APRN Active PREDNISONE 20 MG TAB 1 tablet twice daily for 2 days, then 1 tablet once daily for 2 days PREDNISONE 33442287262 No Longer Active Robbie Busby MD Active CEFDINIR 300 MG ORAL CAPS Take 1 cap po bid x 10 days CEFDINIR 57454986359 No Longer Active Robbie Busby MD Active AMLODIPINE BESYLATE 10 MG TABS 1 tablet by mouth daily AMLODIPINE BESYLATE 59569988006 Active Robbie Busby MD Active CARVEDILOL 25 MG TABS 1 & 1/2 TAB po BID CARVEDILOL 29374230123 Active Robbie Busby MD Active VITAMIN D3 82792 UNIT CAPS 2 CAPS PO WEEKLY CHOLECALCIFEROL 82229844337 Active Erin Garsia APRN Active NEXIUM 40 MG CPDR 1 cap by mouth daily ESOMEPRAZOLE MAGNESIUM 02946809706 Active Robbie Busby MD Active PROTONIX 40 MG SOLR 1 po qday for acid reflux PANTOPRAZOLE SODIUM 77670006515 No Longer Active Gali Raida Active KEFLEX 500 MG CAP 1 po TID x 10 days CEPHALEXIN 93064457680 No Longer Active Robbie Busby MD Active FIORICET 50-300-40 MG ORAL CAPS take 1 tab po qday prn migraines. [id number] 36185063735 Active Robbie Busby MD Active TOPIRAMATE 50 MG ORAL TABS take 1 tab po BID for migraines. TOPIRAMATE 33072047014 Active Robbie Busby MD Active TEMAZEPAM 15 MG ORAL CAPS 1 TAB PO Q HS TEMAZEPAM 14571538842 Active Robbie Busby MD Active ALPRAZOLAM 2 MG ORAL TABS 1 TAB PO BID ALPRAZOLAM 46673210007 Active Robbie Busby MD Active FENOFIBRATE 145 MG TABS Take one by mouth daily FENOFIBRATE 76657699442 No Longer Active Robbie Busby MD Active SPIRONOLACTONE 50 MG TABS 1 tablet by mouth twice a day SPIRONOLACTONE 60539896032 No Longer Active Robbie Busyb MD Active HYDRALAZINE HCL 25 MG TABS 1 tablet by mouth tid for hypertension HYDRALAZINE HCL 69289082590 No Longer Active Robbie Busby MD Active VIIBRYD 40 MG TABS take 1 tab po qday for depression. VILAZODONE HCL 63214713021 No Longer Active Robbie Busby MD Active TERBINAFINE HCL 250 MG TABS 1 tab po qday for foot infection 2014 TERBINAFINE HCL 26870155682 No Longer Active Robbie Busby MD Active GABAPENTIN 300 MG CAPS 1 po q hs for nerve pain GABAPENTIN 90105663888 Active Robbie Busby MD Active FLONASE 50 MCG/ACT SUSP 1 spray each nostril twice daily for allergies and runny nose FLUTICASONE PROPIONATE 48454855492 Active Robbie Busby MD Active CHERATUSSIN AC 100-10 MG/5ML ORAL SOLN 7.5 mL PO q 4-6 hrs PRN cough GUAIFENESIN-CODEINE 13466773767 No Longer Active Robbie Busby MD Active AZITHROMYCIN 250 MG ORAL TABS 2 tablets PO today---then, 1 tablet PO daily x 4 more days (and 1 optional refill) AZITHROMYCIN 94876054063 No Longer Active Robbie Busby MD Active NORVASC 10 MG TAB 1 tablet by mouth daily AMLODIPINE BESYLATE 68073563732 No Longer Active Alex ALVAREZ Active IMDUR 60 MG TAB CR take 1 tab po qday for blood pressure ISOSORBIDE MONONITRATE Active Robbie Busby MD Active ISOSORBIDE DINITRATE 30 MG TABS Take one by mouth daily ISOSORBIDE DINITRATE 40714845300 No Longer Active Robbie Busby MD Active VIIBRYD 40 MG TABS 1 TA B PO DAILY VILAZODONE HCL 29933748291 Active Robbie Busby MD Active LORATADINE 10 MG TABS 1 tablet by mouth daily for congestion and allergies. LORATADINE 51778222557 Active Robbie Busby MD Active ZITHROMAX 250 MG TAB 2 po today, then 1 po q days 2-5 AZITHROMYCIN 03399388786 No Longer Active Robbie Busby MD Active HIJCIMEA-WDY-5 0.3 MG/24HR PTWK apply 2 patches q week for HTN CLONIDINE HCL 95112919429 Active Robbie Busby MD Active NITROSTAT 0.4 MG SUBL PRN NITROGLYCERIN 24868498624 Active Robbie Busby MD Active DOXAZOSIN MESYLATE 4 MG TABS Take one by mouth daily DOXAZOSIN MESYLATE 33380486328 Active Erin Garsia [employer] Active TOPROL XL 200 MG [id number]-PHC Take one by mouth daily METOPROLOL SUCCINATE 99793238338 Active Robbie Busby MD Active VENLAFAXINE HCL ER 150 MG [id number] Take one by mouth daily VENLAFAXINE HCL 84978583664 Active Robbie Busby MD Active LIPITOR 40 MG TABS Take one by mouth daily ATORVASTATIN CALCIUM 65257940407 Active Robbie Busby MD Active HYDROCHLOROTHIAZIDE TABS Take one by mouth daily HYDROCHLOROTHIAZIDE TABS HYDROCHLOROTHIAZIDE TABS Inactive BACTRIM DS 800-160 MG TAB 1 tab by mouth twice daily BACTRIM DS 800-160 MG TAB 559397 TRIMETHOPRIM-SULFAMETHOXAZOLE Inactive BETADINE 10 % EXT SOLN wash with 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 BETADINE 10 % EXT SOLN 5674526 POVIDONE-IODINE Inactive CLONIDINE HCL 0.2 MG ORAL TABS 1 TAB BY MOUTH EVERY 8 HOURS 12/29 CLONIDINE HCL 0.2 MG ORAL TABS 162556 CLONIDINE HCL Inactive HYDRALAZINE HCL 25 MG TABS 1 tablet by mouth tid for hypertension HYDRALAZINE HCL 25 MG TABS 437881 HYDRALAZINE HCL Inactive HYDRALAZINE HCL 50 MG ORAL TABS TWO BY MOUTH THREE TIMES DAILY HYDRALAZINE HCL 50 MG ORAL TABS 520705 HYDRALAZINE HCL Inactive ISOSORBIDE DINITRATE 30 MG TABS Take one by mouth daily ISOSORBIDE DINITRATE 30 MG TABS 231051 ISOSORBIDE DINITRATE Inactive KEFLEX 500 MG CAP 1 po TID x 10 days KEFLEX 500 MG CAP 299316 CEPHALEXIN Inactive NORVASC 10 MG TAB 1 tablet by mouth daily NORVASC 10 MG TAB 329201 AMLODIPINE BESYLATE Inactive NYSTATIN 985538 UNIT/ML M/T SUSP 5mL po QID x 10 days NYSTATIN 438868 UNIT/ML M/T SUSP 844393 NYSTATIN Inactive PREDNISONE 20 MG TAB 1 tablet twice daily for 2 days, then 1 tablet once daily for 2 days PREDNISONE 20 MG TAB 074440 PREDNISONE Inactive PREDNISONE 20 MG TAB take 3 tabs daily for 3 days, 2 tabs daily for 3 days, 1 tab daily for 3 days, 1/2 tab daily for 4 days PREDNISONE 20 MG TAB 693032 PREDNISONE Inactive SPIRONOLACTONE 25 MG TAB 4 tablets by mouth daily SPIRONOLACTONE 25 MG TAB 539748 SPIRONOLACTONE Inactive SPIRONOLACTONE 50 MG TABS 1 tablet by mouth twice a day SPIRONOLACTONE 50 MG TABS 692263 SPIRONOLACTONE Inactive MECLIZINE HCL 25 MG TAB one 4 times a day as needed for dizziness MECLIZINE HCL 25 MG TAB 845415 MECLIZINE HCL Inactive TERBINAFINE HCL 250 MG TABS 1 tab po qday for foot infection 2014 TERBINAFINE HCL 250 MG TABS 784122 TERBINAFINE HCL Inactive LEVAQUIN 500 MG TAB 1 tablet by mouth daily for 7 days LEVAQUIN 500 MG TAB 603834 LEVOFLOXACIN Inactive ZITHROMAX 250 MG TAB 2 po today, then 1 po q days 2-5 ZITHROMAX 250 MG TAB 3292169 AZITHROMYCIN Inactive AZITHROMYCIN 250 MG ORAL TABS 2 tablets PO today---then, 1 tablet PO daily x 4 more days (and 1 optional refill) AZITHROMYCIN 250 MG ORAL TABS 3179133 AZITHROMYCIN Inactive CEFDINIR 300 MG ORAL CAPS Take 1 cap po bid x 10 days CEFDINIR 300 MG ORAL CAPS 482257 CEFDINIR Inactive TRILEPTAL 150 MG ORAL TABS 1 TAB PO Q HS TRILEPTAL 150 MG ORAL TABS 930562 OXCARBAZEPINE Inactive PROTONIX 40 MG SOLR 1 po qday for acid reflux PROTONIX 40 MG SOLR 702973 PANTOPRAZOLE SODIUM Inactive HYDROCODONE-ACETAMINOPHEN 5-325 MG TABS 1 tab by mouth BID prn back pain 2013 HYDROCODONE-ACETAMINOPHEN 5-325 MG TABS 563010 HYDROCODONE -ACETAMINOPHEN Inactive FENOFIBRATE 145 MG TABS Take one by mouth daily FENOFIBRATE 145 MG TABS 495732 FENOFIBRATE Inactive LAMISIL 125 MG ORAL PACK 1 TAB PO DAILY LAMISIL 125 MG ORAL PACK TERBINAFINE HCL Inactive VIIBRYD 40 MG TABS take 1 tab po qday for depression. VIIBRYD 40 MG TABS VILAZODONE HCL Inactive CHERATUSSIN AC 100-10 MG/5ML ORAL SOLN 7.5 mL PO q 4-6 hrs PRN cough CHERATUSSIN AC 100-10 MG/5ML ORAL SOLN 466407 GUAIFENESIN- CODEINE Inactive Advance Directives Directive Description [...] % 11.6-14.8 platelet count 229 10^3/MM^3 10*3/mm3 088-384 6805/09/06 mean corpuscular volume, RBC 90 fL 80-97 [...] % 11.0-15.0 platelet count 185 THOUSAND/UL 10*3/mm3 183-401 0426/04/14 mean platelet volume 10.9 fL 7.5-12.5 Lab Report: LIPID PANEL, TSH/899, T4, FREE/866 - Chemistry cholesterol, serum 220 mg/dL 450-294 5379/04/14 HDL cholesterol, serum 30 mg/dL > OR=40 triglyceride, serum, fasting 466 mg/dL <150 LDL cholesterol, serum SEE NOTE mg/dL (calc) mg/dL <130 cholesterol/HDL ratio, serum 7.3 (calc) < OR=5.0 Lab Report: MICROALB/CREAT W/RATIO - Chemistry albumin/creatinine ratio, urine < 30 mg/g mg/g{creat} 0-29 Lab Report: MICROALB/CREAT W/RATIO - Lab microalbumin, urine 80 0-19 Lab Report: VITAMIN D, 25-HYDROXY/68909 - Chemistry vitamin D 25-hydroxy, serum 23 ng/mL 30-100 Office Visit: Confusion, dizziness after fall - Basic LDL target level 130 mg/dL Office Visit: Confusion, dizziness after fall - Chemistry HDL cholesterol, serum, target level 40 mg/dL triglyceride, target level 150 mg/dL cholesterol, target level 200 mg/dL Encounters Code Encounter Date Provider Facility CPT-79531 Level 4 Est. Patient 11:56:16 CDT Erin Garsia [facility] CPT-87617 Level 3 Est. Patient 17:48:02 CDT Robbie Busby MD [facility] CPT-22747 Level 4 Est. 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 Patient 09:16:37 CDT Robbie Busby MD [facility] CPT-56695 Level 3 Est. Patient 19:38:43 CDT Robbie Busby MD [facility] CPT-28666 Level 3 Est. Patient 11:53:38 CDT Robbie Busby MD [facility] CPT-16521 Level 4 Est. Patient 12:52:22 CDT Rober Rodríguez [facility] CPT-26785 Level 4 Est. Patient 22:55:17 CDT Robbie Busby MD [facility] CPT-16701 Level 3 Est. Patient 12:38:24 CDT Desmond Diaz DO [facility] CPT-11107 Level 4 Est. Patient 11:25:03 TRAFFIC PERSONNEL SUPERVISOR Robbie Busby MD [facility] CPT-67019 Level 4 Est. Patient 14:50:10 CDT Robbie Busby MD [facility] CPT-99097 Level 4 Est. Patient 23:30:43 CDT Robbie Busby MD [facility] CPT-41691 Level 4 Est. Patient 10:30:43 CDT Robbie Busby MD [facility] CPT-64993 Level 3 Est. Patient 17:08:12 CDT Alex Shaw [facility] CPT-92997 Level 4 Est. Patient 17:51:38 CDT Robbie Busby MD [facility] CPT-99139 Level 4 Est. Patient 14:00:21 CDT Robbie Busby MD [facility] CPT-95311 Level 4 Est. Patient 12:46:48 CDT Robbie Busby MD [facility] CPT-88945 Level 4 Est. Patient 13:34:33 CDT Robbie Busby MD [facility] CPT-56018 Level 4 Est. Patient 16:58:28 CDT Robbie Busby MD [facility] CPT-74593 Level 3 Est. Patient 19:36:53 CDT Alex Shaw [facility] CPT-46936 Level 3 Est. Patient 12:58:15 CDT Robbie Busby MD [facility] Procedures Code Procedure Name Date Entry Date Standard Description CPT-26683 TB Skin Test 11:42:28 CDT CPT-76469 Tdap 7yrs or > 11:42:28 CDT CPT-J0696 Rocephin 1000 mg (Ceftriaxone) 17:43:43 [employer]FFIC PERSONNEL SUPERVISOR CPT-J1040 Depo Medrol 80 mg (Methyl Prednisolone Acetate) 17:43: 43 TRAFFIC PERSONNEL SUPERVISOR CPT-J1100 Decadron 8mg (Dexamethasone) 17:43:42 TRAFFIC PERSONNEL SUPERVISOR CPT-16559 Abx/Therapy Injection 17:43:42 TRAFFIC PERSONNEL SUPERVISOR CPT-60173 Abx/Therapy Injection 17:43:42 TRAFFIC PERSONNEL SUPERVISOR CPT-J1040 Depo Medrol 80 mg (Methyl Prednisolone Acetate) 09:43: 34 TRAFFIC PERSONNEL SUPERVISOR CPT-J1100 Decadron 8mg (Dexamethasone) 09:43:34 TRAFFIC PERSONNEL SUPERVISOR CPT-J0696 Rocephin 1gm Inj Solr 09:43:34 TRAFFIC PERSONNEL SUPERVISOR CPT-56609 Wound Culture - LAB USE ONLY 14:00:21 CDT CPT-I/D I/D Abscess 09:16:37 CDT CPT-67930 Venipuncture Draw Fee 15:20:23 CDT CPT-96201 Microalbumin - LAB USE ONLY 16:02:19 CDT CPT-88099 CBC - LAB USE ONLY 16:02:19 CDT CPT-15847 Venipuncture Draw Fee 16:02:19 CDT CPT-G0438 Initial Annual Wellness Exam 08:10:28 CDT CPT-22830 Venipuncture Draw Fee 13:07:17 CDT CPT-G0008 Administration of Influenza Virus Vaccine 16:09:59 CDT CPT-74315 Fluzone Quadrivalent Intramuscular Suspension 0.5 ML 16: 09:59 CDT CPT-55935 Spec Collection and Handling Fee 15:05:50 CDT
--- OUTSIDE RECORDS SUMMARY | 2018-04-18 13:23 | XMS REPORT | Clinical Summary ---
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 HYDROCODONE-ACETAMINOPHEN 5-325 MG TABS 1 tab by mouth BID prn back pain 2013 HYDROCODONE-ACETAMINOPHEN 88156121648 No Longer Active 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 HYDROCHLOROTHIAZIDE TABS Take one by mouth daily HYDROCHLOROTHIAZIDE TABS 36216609988 No Longer Active 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 LAMISIL 125 MG ORAL PACK 1 TAB PO DAILY TERBINAFINE HCL 68766089693 No Longer Active 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 TRILEPTAL 150 MG ORAL TABS 1 TAB PO Q HS OXCARBAZEPINE 49463436752 No Longer Active 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 BETADINE 10 % EXT SOLN wash with solution to treat follicultis POVIDONE-IODINE 97734184810 No Longer Active 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 NYSTATIN 024905 UNIT/ML M/T SUSP 5mL po QID x 10 days NYSTATIN 27186484015 No Longer Active Erin Garsia APRN Active PREDNISONE 20 MG TAB 1 tablet twice daily for 2 days, then 1 tablet once daily for 2 days PREDNISONE 54289056780 No Longer Active Robbie Busby MD Active CEFDINIR 300 MG ORAL CAPS Take 1 cap po bid x 10 days CEFDINIR 06629359316 No Longer Active Robbie Busby MD Active AMLODIPINE BESYLATE 10 MG TABS 1 tablet by mouth daily AMLODIPINE BESYLATE 31437231212 Active Robbie Busby MD Active CARVEDILOL 25 MG TABS 1 & 1/2 TAB po BID CARVEDILOL 19776027416 Active Erin Garsia APRN Active VITAMIN D3 35923 UNIT CAPS 2 CAPS PO WEEKLY CHOLECALCIFEROL 48093517744 Active Erin Garsia APRN Active NEXIUM 40 MG CPDR 1 cap by mouth daily ESOMEPRAZOLE MAGNESIUM 06730143413 Active Robbie Busby MD Active PROTONIX 40 MG SOLR 1 po qday for acid reflux PANTOPRAZOLE SODIUM 62315769714 No Longer Active Gali Raida Active KEFLEX 500 MG CAP 1 po TID x 10 days CEPHALEXIN 62646286538 No Longer Active Robbie Busby MD Active FIORICET 50-300-40 MG ORAL CAPS take 1 tab po qday prn migraines. NITIADSMUK-AMLC-FJGOLKIN 43735181238 Active Robbie Busby MD Active TOPIRAMATE 50 MG ORAL TABS take 1 tab po BID for migraines. TOPIRAMATE 68140511955 Active Robbie Busby MD Active MECLIZINE HCL 25 MG TAB one 4 times a day as needed for dizziness MECLIZINE HCL 91874372922 Active Robbie Busby MD Active TEMAZEPAM 15 MG ORAL CAPS 1 TAB PO Q HS TEMAZEPAM 36309136463 Active Robbie Busby MD Active ALPRAZOLAM 2 MG ORAL TABS 1 TAB PO BID ALPRAZOLAM 14771519074 Active Robbie Busby MD Active FENOFIBRATE 145 MG TABS Take one by mouth daily FENOFIBRATE 08257721095 No Longer Active Robbie Busby MD Active SPIRONOLACTONE 50 MG TABS 1 tablet by mouth twice a day SPIRONOLACTONE 52989703877 No Longer Active Robbie Busby MD Active HYDRALAZINE HCL 25 MG TABS 1 tablet by mouth tid for hypertension HYDRALAZINE HCL 23416646368 No Longer Active Robbie Busby MD Active VIIBRYD 40 MG TABS take 1 tab po qday for depression. VILAZODONE HCL 32442784854 No Longer Active Robbie Busby MD Active TERBINAFINE HCL 250 MG TABS 1 tab po qday for foot infection 2014 TERBINAFINE HCL 24244948956 No Longer Active Robbie Busby MD Active GABAPENTIN 300 MG CAPS 1 po q hs for nerve pain GABAPENTIN 05406173741 Active Robbie Busby MD Active FLONASE 50 MCG/ACT SUSP 1 spray each nostril twice daily for allergies and runny nose FLUTICASONE PROPIONATE 22705094296 Active Robbie Busby MD Active CHERATUSSIN AC 100-10 MG/5ML ORAL SOLN 7.5 mL PO q 4-6 hrs PRN cough GUAIFENESIN-CODEINE 75281572733 No Longer Active Robbie Busby MD Active AZITHROMYCIN 250 MG ORAL TABS 2 tablets PO today---then, 1 tablet PO daily x 4 more days (and 1 optional refill) AZITHROMYCIN 56008269434 No Longer Active Robbie Busby MD Active CLONIDINE HCL 0.2 MG ORAL TABS 1 TAB BY MOUTH EVERY 8 HOURS CLONIDINE HCL 48434371453 Active Robbie Busby MD Active NORVASC 10 MG TAB 1 tablet by mouth daily AMLODIPINE BESYLATE 47241051657 No Longer Active Alex ALVAREZ Active IMDUR 60 MG TAB CR take 1 tab po qday for blood pressure ISOSORBIDE MONONITRATE Active Robbie Busby MD Active ISOSORBIDE DINITRATE 30 MG TABS Take one by mouth daily ISOSORBIDE DINITRATE 93509518720 No Longer Active Robbie Busby MD Active VIIBRYD 40 MG TABS 1 TA B PO DAILY VILAZODONE HCL 44124379998 Active Robbie Busby MD Active LORATADINE 10 MG TABS 1 tablet by mouth daily for congestion and allergies. LORATADINE 75391047097 Active Robbie Busby MD Active ZITHROMAX 250 MG TAB 2 po today, then 1 po q days 2-5 AZITHROMYCIN 24148828979 No Longer Active Robbie Busby MD Active [id number]-8 0.3 MG/24HR PTWK apply 2 patches q week for HTN CLONIDINE HCL 15257001485 Active Robbie Busby MD Active NITROSTAT 0.4 MG SUBL PRN NITROGLYCERIN 78450391019 Active Robbie Busby MD Active DOXAZOSIN MESYLATE 4 MG TABS Take one by mouth daily DOXAZOSIN MESYLATE 83217074878 Active Erin Garsia APRN Active TOPROL XL 200 MG [id number] Take one by mouth daily METOPROLOL SUCCINATE 15478170347 Active Robbie Busby MD Active VENLAFAXINE HCL ER 150 MG [id number] Take one by mouth daily VENLAFAXINE HCL 75272310636 Active Robbie Busby MD Active LIPITOR 40 MG TABS Take one by mouth daily ATORVASTATIN CALCIUM 54914233434 Active Robbie Busby MD Active ISOSORBIDE DINITRATE 30 MG TABS Take one by mouth daily ISOSORBIDE DINITRATE 30 MG TABS 415458 ISOSORBIDE DINITRATE Inactive NORVASC 10 MG TAB 1 tablet by mouth daily NORVASC 10 MG TAB 244894 AMLODIPINE BESYLATE Inactive AZITHROMYCIN 250 MG ORAL TABS 2 tablets PO today---then, 1 tablet PO daily x 4 more days (and 1 optional refill) AZITHROMYCIN 250 MG ORAL TABS 5678365 AZITHROMYCIN Inactive CHERATUSSIN AC 100-10 MG/5ML ORAL SOLN 7.5 mL PO q 4-6 hrs PRN cough CHERATUSSIN AC 100-10 MG/5ML ORAL SOLN 246890 GUAIFENESIN- CODEINE Inactive VIIBRYD 40 MG TABS take 1 tab po qday for depression. VIIBRYD 40 MG TABS VILAZODONE HCL Inactive HYDRALAZINE HCL 25 MG TABS 1 tablet by mouth tid for hypertension HYDRALAZINE HCL 25 MG TABS 990765 HYDRALAZINE HCL Inactive SPIRONOLACTONE 50 MG TABS 1 tablet by mouth twice a day SPIRONOLACTONE 50 MG TABS 629295 SPIRONOLACTONE Inactive FENOFIBRATE 145 MG TABS Take one by mouth daily FENOFIBRATE 145 MG TABS 996280 FENOFIBRATE Inactive PROTONIX 40 MG SOLR 1 po qday for acid reflux PROTONIX 40 MG SOLR 235114 PANTOPRAZOLE SODIUM Inactive CEFDINIR 300 MG ORAL CAPS Take 1 cap po bid x 10 days CEFDINIR 300 MG ORAL CAPS 294306 CEFDINIR Inactive PREDNISONE 20 MG TAB 1 tablet twice daily for 2 days, then 1 tablet once daily for 2 days PREDNISONE 20 MG TAB 020194 PREDNISONE Inactive NYSTATIN 583333 UNIT/ML M/T SUSP 5mL po QID x 10 days NYSTATIN 367579 UNIT/ML M/T SUSP 947009 NYSTATIN Inactive BETADINE 10 % EXT SOLN wash with solution to treat follicultis BETADINE 10 % EXT SOLN 1929670 POVIDONE-IODINE Inactive TRILEPTAL 150 MG ORAL TABS 1 TAB PO Q HS TRILEPTAL 150 MG ORAL TABS 043610 OXCARBAZEPINE Inactive LAMISIL 125 MG ORAL PACK 1 TAB PO DAILY LAMISIL 125 MG ORAL PACK TERBINAFINE HCL Inactive HYDROCHLOROTHIAZIDE TABS Take one by mouth daily HYDROCHLOROTHIAZIDE TABS HYDROCHLOROTHIAZIDE TABS Inactive HYDROCODONE-ACETAMINOPHEN 5-325 MG TABS 1 tab by mouth BID prn back pain 2013 HYDROCODONE-ACETAMINOPHEN 5-325 MG TABS 348951 HYDROCODONE -ACETAMINOPHEN Inactive HYDRALAZINE HCL 50 MG ORAL TABS TWO BY MOUTH THREE TIMES DAILY HYDRALAZINE HCL 50 MG ORAL TABS 132268 HYDRALAZINE HCL Inactive ZITHROMAX 250 MG TAB 2 po today, then 1 po q days 2-5 ZITHROMAX 250 MG TAB 7894363 AZITHROMYCIN Inactive TERBINAFINE HCL 250 MG TABS 1 tab po qday for foot infection 2014 TERBINAFINE HCL 250 MG TABS 218377 TERBINAFINE HCL Inactive KEFLEX 500 MG CAP 1 po TID x 10 days KEFLEX 500 MG CAP 369010 CEPHALEXIN Inactive BACTRIM DS 800-160 MG TAB 1 tab by mouth twice daily BACTRIM DS 800-160 MG TAB 235518 TRIMETHOPRIM-SULFAMETHOXAZOLE Inactive Advance Directives Directive Description Start [...] Acid - Chemistry sodium, serum 139 mmol/L 364-636 8055/04/22 carbon dioxide, venous blood 29.4 mmol/L 21.0-32.0 [...] to Follow Negative Lab Report: VITAMIN D, 25-HYDROXY/94228 - Chemistry vitamin D 25-hydroxy, serum 23 ng/mL 30-100 Encounters Code Encounter Date Provider Facility CPT-81119 Level 4 Est. Patient 12:00:49 ADVANCED REGISTERED NURSE Rober Rodríguez APRN [facility] CPT-49572 Level 3 Est. Patient 09:16:37 CDT Robbie Busby MD [facility] CPT-89448 Level 3 Est. Patient 19:38:43 CDT Robbie Busby MD [facility] CPT-96305 Level 3 Est. Patient 11:53:38 CDT Robbie Busby MD [facility]-29180 Level 4 Est. Patient 12:52:22 CDT Rober Rodríguez APRN [facility] CPT-32205 Level 4 Est. Patient 22:55:17 CDT Robbie Busby MD [facility]-22525 Level 3 Est. Patient 12:38:24 CDT Desmond Diaz DO [facility] CPT-86074 Level 4 Est. Patient 11:25:03 ADVANCED REGISTERED NURSE Robbie Busby MD [facility]-19093 Level 4 Est. Patient 14:50:10 CDT Robbie Busby MD [facility] CPT-60439 Level 4 Est. Patient 23:30:43 CDT Robbie Busby MD [facility] CPT-36280 Level 4 Est. Patient 10:30:43 CDT Robbie Busby MD [facility] CPT-72481 Level 3 Est. Patient 17:08:12 CDT Alex ALVAREZ [facility] CPT-70670 Level 4 Est. Patient 17:51:38 CDT Robbie Busby MD [facility] CPT-44793 Level 4 Est. Patient 14:00:21 CDT Robbie Busby MD [facility] CPT-80031 Level 4 Est. Patient 12:46:48 CDT Robbie Busby MD [facility]-19108 Level 4 Est. Patient 13:34:33 CDT Robbie Busby MD [facility] CPT-81828 Level 4 Est. Patient 16:58:28 CDT Robbie Busby MD [facility] CPT-08824 Level 3 Est. Patient 19:36:53 CDT Alex ALVAREZ [facility] CPT-45276 Level 3 Est. Patient 12:58:15 CDT Robbie Busby MD [facility] Procedures Code Procedure Name Date Entry Date Standard Description CPT-J0696 Rocephin 1000 mg (Ceftriaxone) 17:43:43 ADVANCED REGISTERED NURSE CPT-J1040 Depo Medrol 80 mg (Methyl Prednisolone Acetate) 17:43: 43 ADVANCED REGISTERED NURSE CPT-J1100 Decadron 8mg (Dexamethasone) 17:43:42 ADVANCED REGISTERED NURSE CPT-69072 Abx/Therapy Injection 17:43:42 ADVANCED REGISTERED NURSE CPT-87300 Abx/Therapy Injection 17:43:42 ADVANCED REGISTERED NURSE CPT-J1040 Depo Medrol 80 mg (Methyl Prednisolone Acetate) 09:43: 34 ADVANCED REGISTERED NURSE CPT-J1100 Decadron 8mg (Dexamethasone) 09:43:34 ADVANCED REGISTERED NURSE CPT-J0696 Rocephin 1gm Inj Solr 09:43:34 ADVANCED REGISTERED NURSE CPT-24853 Wound Culture - LAB USE ONLY 14:00:21 CDT CPT-I/D I/D Abscess 09:16:37 CDT CPT-56644 Venipuncture Draw Fee 15:20:23 CDT CPT-29914 Microalbumin - LAB USE ONLY 16:02:19 CDT CPT-16583 CBC - LAB USE ONLY 16:02:19 CDT CPT-59017 Venipuncture Draw Fee 16:02:19 CDT CPT-G0438 Initial Annual Wellness Exam 08:10:28 CDT CPT-81073 Venipuncture Draw Fee 13:07:17 CDT CPT-G0008 Administration of Influenza Virus Vaccine 16:09:59 CDT CPT-57262 Fluzone Quadrivalent Intramuscular Suspension 0.5 ML 16: 09:59 CDT CPT-93953 Spec Collection and Handling Fee 15:05:50 CDT
--- OUTSIDE RECORDS SUMMARY | 2018-04-18 13:25 | XMS REPORT | Clinical Summary ---
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 Acute upper respiratory infections of unspecified site [...] Status Provider Patient Instruction GUAIFENESIN 600 MG [id number] 1 tab po q am GUAIFENESIN [id number] No Longer Active Robbie Busby MD Active DIVALPROEX SODIUM ER 500 MG ORAL TABLET EXTENDED RELEASE 24 HOUR Once daily DIVALPROEX SODIUM 32420215509 Active Robbie Busby MD Active DEPO-TESTOSTERONE 200 MG/ML IM SOLN 1 IM Injections every 2 weeks for low testosterone TESTOSTERONE CYPIONATE 68024442478 Active Zulema Blank LPN Active CYCLOBENZAPRINE HCL 10 MG ORAL TABS 1 po TID PRN muscle spasm/pain for 10 days CYCLOBENZAPRINE HCL 18633256060 Active JONATHAN Moncada Active FLUTICASONE PROPIONATE 50 MCG/ACT SUSP 2 sprays per nostril bid for 1 week, then 1 spray bid FLUTICASONE PROPIONATE 20228060179 Active Jillina Franeha SENIOR GEOTECHNICAL ENGINEER Active HYDRALAZINE HCL 25 MG ORAL TABS Take 1 tab BID. HYDRALAZINE HCL 04711960612 Active Jillina Anne SENIOR GEOTECHNICAL ENGINEER Active VITAMIN D3 56803 UNIT ORAL TABS 2 po weekly CHOLECALCIFEROL 99742029867 Active Robbie Busby MD Active OXYCODONE HCL ER 10 MG ORAL T12A 1 tab po 3 times qd. OXYCODONE HCL 84819981047 Active Robbie Busby MD Active NITROSTAT 0.4 MG SUBL PRN NITROGLYCERIN 34171882661 No Longer Active Robbie Busby MD Active LORATADINE 10 MG TABS 1 tablet by mouth daily for congestion and allergies. LORATADINE 39279663712 No Longer Active Robbie Busby MD Active FLONASE 50 MCG/ACT SUSP 1 spray each nostril twice daily for allergies and runny nose FLUTICASONE PROPIONATE 18378066141 No Longer Active Robbie Busby MD Active FIORICET 50-300-40 MG ORAL CAPS take 1 tab po qday prn migraines. [id number] 05144259254 No Longer Active Robbie Busby MD Active VITAMIN D3 47779 UNIT CAPS 2 CAPS PO WEEKLY CHOLECALCIFEROL 98602332453 No Longer Active Robbie Busby MD Active CYCLOBENZAPRINE HCL 10 MG TABS 1 tablet by mouth three times daily as needed for muscle spasm/pain for 10 days CYCLOBENZAPRINE HCL 08031592376 No Longer Active Robbie Busby MD Active PREDNISONE 20 MG TAB take 3 tabs daily for 3 days, 2 tabs daily for 3 days, 1 tab daily for 3 days, 1/2 tab daily for 4 days PREDNISONE 21378177882 No Longer Active Erin Garsia APRN Active CLONIDINE HCL 0.2 MG ORAL TABS 1 TAB BY MOUTH EVERY 8 HOURS 12/29 CLONIDINE HCL 73983380516 No Longer Active Erin Garsia APRN Active MECLIZINE HCL 25 MG TAB one 4 times a day as needed for dizziness MECLIZINE HCL 43624764960 No Longer Active Erin Garsia APRN Active SPIRONOLACTONE 25 MG TAB 4 tablets by mouth daily SPIRONOLACTONE 69229381908 No Longer Active Erin Garsia APRN Active LEVAQUIN 500 MG TAB 1 tablet by mouth daily for 7 days LEVOFLOXACIN 77515697971 No Longer Active Erin Garsia APRN Active BACTRIM DS 800-160 MG TAB 1 tab by mouth twice daily TRIMETHOPRIM-SULFAMETHOXAZOLE 14251758193 No Longer Active Robbie Busby MD Active HYDRALAZINE HCL 50 MG ORAL TABS TWO BY MOUTH THREE TIMES DAILY HYDRALAZINE HCL 23144536455 No Longer Active Jillld Rodríguez APRN Active HYDROCODONE-ACETAMINOPHEN 5-325 MG TABS 1 tab by mouth BID prn back pain 2013 HYDROCODONE-ACETAMINOPHEN 74803388220 No Longer Active Jillina Zulemal SENIOR GEOTECHNICAL ENGINEER Active HYDROCHLOROTHIAZIDE TABS Take one by mouth daily HYDROCHLOROTHIAZIDE TABS 79750832258 No Longer Active Jillina Frakierstenl SENIOR GEOTECHNICAL ENGINEER Active LAMISIL 125 MG ORAL PACK 1 TAB PO DAILY TERBINAFINE HCL 30087982451 No Longer Active Jillina Frakierstenl SENIOR GEOTECHNICAL ENGINEER Active TRILEPTAL 150 MG ORAL TABS 1 TAB PO Q HS OXCARBAZEPINE 63029494916 No Longer Active Jillina Frakierstenl SENIOR GEOTECHNICAL ENGINEER Active BETADINE 10 % EXT SOLN wash with solution to treat follicultis POVIDONE-IODINE 70053466880 No Longer Active Rober Rodríguez APRN Active NYSTATIN 259042 UNIT/ML M/T SUSP 5mL po QID x 10 days NYSTATIN 90881056690 No Longer Active Erin Garsia APRN Active PREDNISONE 20 MG TAB 1 tablet twice daily for 2 days, then 1 tablet once daily for 2 days PREDNISONE 51095339870 No Longer Active Robbie Busby MD Active CEFDINIR 300 MG ORAL CAPS Take 1 cap po bid x 10 days CEFDINIR 51340784729 No Longer Active Robbie Busby MD Active AMLODIPINE BESYLATE 10 MG TABS 1 tablet by mouth daily AMLODIPINE BESYLATE 06979938396 Active Robbie Busby MD Active CARVEDILOL 25 MG TABS 1 & 1/2 TAB po BID CARVEDILOL 39381240917 Active Robbie Busby MD Active NEXIUM 40 MG CPDR 1 cap by mouth daily ESOMEPRAZOLE MAGNESIUM 15440171681 Active Robbie Busby MD Active PROTONIX 40 MG SOLR 1 po qday for acid reflux PANTOPRAZOLE SODIUM 01671771797 No Longer Active Gali Raida Active KEFLEX 500 MG CAP 1 po TID x 10 days CEPHALEXIN 47036915720 No Longer Active Robbie Busby MD Active TOPIRAMATE 50 MG ORAL TABS take 1 tab po BID for migraines. TOPIRAMATE 57424442807 Active Robbie Busby MD Active TEMAZEPAM 15 MG ORAL CAPS 1 TAB PO Q HS TEMAZEPAM 92824393697 Active Robbie Busby MD Active ALPRAZOLAM 2 MG ORAL TABS 1 TAB PO BID ALPRAZOLAM 86264018050 Active Robbie Busby MD Active FENOFIBRATE 145 MG TABS Take one by mouth daily FENOFIBRATE 31069851483 No Longer Active Robbie Busby MD Active SPIRONOLACTONE 50 MG TABS 1 tablet by mouth twice a day SPIRONOLACTONE 17249583064 No Longer Active Robbie Busby MD Active HYDRALAZINE HCL 25 MG TABS 1 tablet by mouth tid for hypertension HYDRALAZINE HCL 27935167430 No Longer Active Robbie Busby MD Active VIIBRYD 40 MG TABS take 1 tab po qday for depression. VILAZODONE HCL 85888724817 No Longer Active Robbie Busby MD Active TERBINAFINE HCL 250 MG TABS 1 tab po qday for foot infection 2014 TERBINAFINE HCL 32500579993 No Longer Active Robbie Busby MD Active GABAPENTIN 300 MG CAPS 1 po q hs for nerve pain GABAPENTIN 42131570493 Active Robbie Busby MD Active CHERATUSSIN AC 100-10 MG/5ML ORAL SOLN 7.5 mL PO q 4-6 hrs PRN cough GUAIFENESIN-CODEINE 15536887226 No Longer Active Robbie Busby MD Active AZITHROMYCIN 250 MG ORAL TABS 2 tablets PO today---then, 1 tablet PO daily x 4 more days (and 1 optional refill) AZITHROMYCIN 52397746173 No Longer Active Robbie Busby MD Active NORVASC 10 MG TAB 1 tablet by mouth daily AMLODIPINE BESYLATE 33072120475 No Longer Active Alex ALVAREZ Active IMDUR 60 MG TAB CR take 1 tab po qday for blood pressure ISOSORBIDE MONONITRATE Active Robbie Busby MD Active ISOSORBIDE DINITRATE 30 MG TABS Take one by mouth daily ISOSORBIDE DINITRATE 65783678704 No Longer Active Robbie Busby MD Active VIIBRYD 40 MG TABS 1 TA B PO DAILY VILAZODONE HCL 34260542738 Active Robbie Busby MD Active ZITHROMAX 250 MG TAB 2 po today, then 1 po q days 2-5 AZITHROMYCIN 71300606970 No Longer Active Robbie Busby MD Active [id number] 0.3 MG/24HR PTWK apply 2 patches q week for HTN CLONIDINE HCL 96486241963 Active Robbie Busby MD Active DOXAZOSIN MESYLATE 4 MG TABS Take one by mouth daily DOXAZOSIN MESYLATE 69899728818 Active Robbie Busby MD Active TOPROL XL 200 MG [id number] Take one by mouth daily METOPROLOL SUCCINATE 41907359365 Active Robbie Busby MD Active VENLAFAXINE HCL ER 150 MG [id number]-GAC Take one by mouth daily VENLAFAXINE HCL 85960410159 Active Robbie Busby MD Active LIPITOR 40 MG TABS Take one by mouth daily ATORVASTATIN CALCIUM 50783243465 Active Robbie Busby MD Active ISOSORBIDE DINITRATE 30 MG TABS Take one by mouth daily ISOSORBIDE DINITRATE 30 MG TABS 751246 ISOSORBIDE DINITRATE Inactive NORVASC 10 MG TAB 1 tablet by mouth daily NORVASC 10 MG TAB 648964 AMLODIPINE BESYLATE Inactive AZITHROMYCIN 250 MG ORAL TABS 2 tablets PO today---then, 1 tablet PO daily x 4 more days (and 1 optional refill) AZITHROMYCIN 250 MG ORAL TABS 162686 AZITHROMYCIN Inactive CHERATUSSIN AC 100-10 MG/5ML ORAL SOLN 7.5 mL PO q 4-6 hrs PRN cough CHERATUSSIN AC 100-10 MG/5ML ORAL SOLN 652171 GUAIFENESIN- CODEINE Inactive VIIBRYD 40 MG TABS take 1 tab po qday for depression. VIIBRYD 40 MG TABS VILAZODONE HCL Inactive HYDRALAZINE HCL 25 MG TABS 1 tablet by mouth tid for hypertension HYDRALAZINE HCL 25 MG TABS 612338 HYDRALAZINE HCL Inactive SPIRONOLACTONE 50 MG TABS 1 tablet by mouth twice a day SPIRONOLACTONE 50 MG TABS 402612 SPIRONOLACTONE Inactive FENOFIBRATE 145 MG TABS Take one by mouth daily FENOFIBRATE 145 MG TABS 419320 FENOFIBRATE Inactive PROTONIX 40 MG SOLR 1 po qday for acid reflux PROTONIX 40 MG SOLR 345798 PANTOPRAZOLE SODIUM Inactive CEFDINIR 300 MG ORAL CAPS Take 1 cap po bid x 10 days CEFDINIR 300 MG ORAL CAPS 287399 CEFDINIR Inactive PREDNISONE 20 MG TAB 1 tablet twice daily for 2 days, then 1 tablet once daily for 2 days PREDNISONE 20 MG TAB 780261 PREDNISONE Inactive NYSTATIN 047775 UNIT/ML M/T SUSP 5mL po QID x 10 days NYSTATIN 325166 UNIT/ML M/T SUSP 395553 NYSTATIN Inactive BETADINE 10 % EXT SOLN wash with solution to treat follicultis BETADINE 10 % EXT SOLN 1527682 POVIDONE-IODINE Inactive TRILEPTAL 150 MG ORAL TABS 1 TAB PO Q HS TRILEPTAL 150 MG ORAL TABS 864044 OXCARBAZEPINE Inactive LAMISIL 125 MG ORAL PACK 1 TAB PO DAILY LAMISIL 125 MG ORAL PACK TERBINAFINE HCL Inactive HYDROCHLOROTHIAZIDE TABS Take one by mouth daily HYDROCHLOROTHIAZIDE TABS HYDROCHLOROTHIAZIDE TABS Inactive HYDROCODONE-ACETAMINOPHEN 5-325 MG TABS 1 tab by mouth BID prn back pain 2013 HYDROCODONE-ACETAMINOPHEN 5-325 MG TABS 941116 HYDROCODONE -ACETAMINOPHEN Inactive HYDRALAZINE HCL 50 MG ORAL TABS TWO BY MOUTH THREE TIMES DAILY HYDRALAZINE HCL 50 MG ORAL TABS 713939 HYDRALAZINE HCL Inactive LEVAQUIN 500 MG TAB 1 tablet by mouth daily for 7 days LEVAQUIN 500 MG TAB 694453 LEVOFLOXACIN Inactive SPIRONOLACTONE 25 MG TAB 4 tablets by mouth daily SPIRONOLACTONE 25 MG TAB 126697 SPIRONOLACTONE Inactive MECLIZINE HCL 25 MG TAB one 4 times a day as needed for dizziness MECLIZINE HCL 25 MG TAB 148317 MECLIZINE HCL Inactive CLONIDINE HCL 0.2 MG ORAL TABS 1 TAB BY MOUTH EVERY 8 HOURS 12/29 CLONIDINE HCL 0.2 MG ORAL TABS 303415 CLONIDINE HCL Inactive CYCLOBENZAPRINE HCL 10 MG TABS 1 tablet by mouth three times daily as needed for muscle spasm/pain for 10 days CYCLOBENZAPRINE HCL 10 MG TABS 558038 CYCLOBENZAPRINE HCL Inactive VITAMIN D3 76708 UNIT CAPS 2 CAPS PO WEEKLY VITAMIN D3 85929 UNIT CAPS CHOLECALCIFEROL Inactive FIORICET 50-300-40 MG ORAL CAPS take 1 tab po qday prn migraines. FIORICET 50-300-40 MG ORAL CAPS 851812 [id number] Inactive FLONASE 50 MCG/ACT SUSP 1 spray each nostril twice daily for allergies and runny nose FLONASE 50 MCG/ACT SUSP 8987303 FLUTICASONE PROPIONATE Inactive LORATADINE 10 MG TABS 1 tablet by mouth daily for congestion and allergies. LORATADINE 10 MG TABS 126554 LORATADINE Inactive NITROSTAT 0.4 MG SUBL PRN NITROSTAT 0.4 MG SUBL 039555 NITROGLYCERIN Inactive GUAIFENESIN 600 MG [id number] 1 tab po q am GUAIFENESIN 600 MG [id number] GUAIFENESIN Inactive ZITHROMAX 250 MG TAB 2 po today, then 1 po q days 2-5 ZITHROMAX 250 MG TAB 700138 AZITHROMYCIN Inactive TERBINAFINE HCL 250 MG TABS 1 tab po qday for foot infection 2014 TERBINAFINE HCL 250 MG TABS 237965 TERBINAFINE HCL Inactive KEFLEX 500 MG CAP 1 po TID x 10 days KEFLEX 500 MG CAP 521732 CEPHALEXIN Inactive BACTRIM DS 800-160 MG TAB 1 tab by mouth twice daily BACTRIM DS 800-160 MG TAB 891998 TRIMETHOPRIM-SULFAMETHOXAZOLE Inactive PREDNISONE 20 MG TAB take 3 tabs daily for 3 days, 2 tabs daily for 3 days, 1 tab daily for 3 days, 1/2 tab daily for 4 days PREDNISONE 20 MG TAB 664868 PREDNISONE Inactive Advance Directives Directive Description Start [...] AUTO - Chemistry sodium, serum 142 mmol/L 428-951 1767/07/17 carbon dioxide, venous blood 28.2 mmol/L 21.0-32.0 [...] % 11.0-15.0 platelet count 185 THOUSAND/UL 10*3/mm3 573-021 5882/04/14 mean platelet volume 10.9 fL 7.5-12.5 Lab Report: LIPID PANEL, TSH/899, T4, FREE/866 - Chemistry cholesterol, serum 220 mg/dL 219-089 2183/04/14 HDL cholesterol, serum 30 mg/dL > [...] 1.80 ng/mL 0.00-4.00 Lab Report: VITAMIN D, 25-HYDROXY/38260 - Chemistry vitamin D 25-hydroxy, serum 25 ng/mL 30-100 Office Visit: Confusion, dizziness after fall - Basic LDL target level 130 mg/dL Office Visit: Confusion, dizziness after fall - Chemistry HDL cholesterol, serum, target level 40 mg/dL triglyceride, target level 150 mg/dL cholesterol, target level 200 mg/dL Encounters Code Encounter Date Provider Facility CPT-54121 Level 3 Est. Patient 15:40:49 CDT Robbie Busby MD [facility] CPT-21297 Level 4 Est. Patient 15:18:19 CDT Robbie Busby MD [facility] CPT-34369 Level 3 Est. Patient 09:00:37 CDT Rober Rodríguez [facility] [place] CPT-25639 Level 3 Est. Patient 16:07:10 CDT Robbei Busby MD [facility] CPT-15026 Level 4 Est. Patient 11:56:16 CDT Erin Garsia [facility] [place] CPT-76064 Level 3 Est. Patient 17:48:02 CDT Robbie Busby MD [facility] CPT-16678 Level 4 Est. Patient 12:00:49 JD [employer]AR[employer] CONSULTANT Rober Rodríguez [facility] [facility] [place] CPT-26386 Level 3 Est. Patient 09:16:37 CDT Robbie Busby MD [facility] CPT-79525 Level 3 Est. Patient 19:38:43 CDT Robbie Busby MD [facility] CPT-71745 Level 3 Est. Patient 11:53:38 CDT Robbie Busby MD [facility] CPT-20072 Level 4 Est. Patient 12:52:22 CDT Rober Rodríguez [facility] [place] CPT-01806 Level 4 Est. Patient 22:55:17 CDT Robbie Busby MD [facility] CPT-66096 Level 3 Est. Patient 12:38:24 CDT Desmond Diaz DO [facility] CPT-46882 Level 4 Est. Patient 11:25:03 JD EDWARDS CONSULTANT Robbie Busby MD [facility] CPT-66994 Level 4 Est. Patient 14:50:10 CDT Robbie Busby MD [facility] CPT-00803 Level 4 Est. Patient 23:30:43 CDT Robbie Busby MD [facility] CPT-20429 Level 4 Est. Patient 10:30:43 CDT Robbie Busby MD [facility] CPT-77639 Level 3 Est. Patient 17:08:12 CDT Alex Shaw [facility] CPT-27659 Level 4 Est. Patient 17:51:38 CDT Robbie Busby MD [facility] CPT-56821 Level 4 Est. Patient 14:00:21 CDT Robbie Busby MD [facility] CPT-91432 Level 4 Est. Patient 12:46:48 CDT Robbie Busby MD [facility] CPT-22827 Level 4 Est. Patient 13:34:33 CDT Robbie Busby MD [facility] CPT-30556 Level 4 Est. Patient 16:58:28 CDT Robbie Busby MD [facility] CPT-56132 Level 3 Est. Patient 19:36:53 CDT Alex Shaw [facility] CPT-71915 Level 3 Est. Patient 12:58:15 CDT Robbie Busby MD [facility] Procedures Code Procedure Name Date Entry Date Standard Description CPT-J1071 Depo Testosterone 200mg 15:40:23 CDT CPT-22899 Abx/Therapy Injection 15:40:23 CDT CPT-J1071 Depo Testosterone 200mg 14:20:43 CDT CPT-36967 Abx/Therapy Injection 14:20:43 CDT CPT-J1071 Depo Testosterone 200mg 14:17:22 CDT CPT-77708 Abx/Therapy Injection 14:17:22 CDT CPT-J1071 Depo Testosterone 200mg 09:03:53 CDT CPT-01363 Abx/Therapy Injection 09:03:53 CDT CPT-G0439 [facility] Annual Wellness Exam 16:47:44 CDT CPT-J1071 Depo Testosterone 200mg 09:06:28 CDT CPT-92499 Abx/Therapy Injection 09:06:28 CDT CPT-J1071 Depo Testosterone 200mg 08:30:01 CDT CPT-50891 Abx/Therapy Injection 08:30:01 CDT CPT-J1071 Depo Testosterone 200mg 08:24:00 CDT CPT-89123 Abx/Therapy Injection 08:24:00 CDT CPT-12873 Venipuncture Draw Fee 14:39:06 CDT CPT-19476 Ribs unilateral 2V - XRAY USE ONLY 12:10:11 CDT CPT-64374 First Vx - Ix admin for Medicare patients 16:32:53 CDT CPT-45195 Boostrix Intramuscular Suspension 5-2.5-18.5 16:32:53 CDT CPT-67960 TB Skin Test 11:42:28 CDT CPT-65495 Tdap 7yrs or > 11:42:28 CDT CPT-J0696 Rocephin 1000 mg (Ceftriaxone) 17:43:43 JD EDWARDS CONSULTANT CPT-J1040 Depo Medrol 80 mg (Methyl Prednisolone Acetate) 17:43: 43 JD [employer]WAR[employer] CONSULTANT CPT-J1100 Decadron 8mg (Dexamethasone) 17:43:42 JD [employer]WAR[employer] CONSULTANT CPT-20094 Abx/Therapy Injection 17:43:42 JD [employer]WAR[employer] CONSULTANT CPT-38605 Abx/Therapy Injection 17:43:42 JD EDWARDS CONSULTANT CPT-J1040 Depo Medrol 80 mg (Methyl Prednisolone Acetate) 09:43: 34 JD [employer]WAR[employer] CONSULTANT CPT-J1100 Decadron 8mg (Dexamethasone) 09:43:34 JD EDWARDS CONSULTANT CPT-J0696 Rocephin 1gm Inj Solr 09:43:34 JD [employer]WAR[employer] CONSULTANT CPT-58956 Wound Culture - LAB USE ONLY 14:00:21 CDT CPT-I/D I/D Abscess 09:16:37 CDT CPT-35257 Venipuncture Draw Fee 15:20:23 CDT CPT-42235 Microalbumin - LAB USE ONLY 16:02:19 CDT CPT-46280 CBC - LAB USE ONLY 16:02:19 CDT CPT-86538 Venipuncture Draw Fee 16:02:19 CDT CPT-G0438 Initial Annual Wellness Exam 08:10:28 CDT CPT-57991 Venipuncture Draw Fee 13:07:17 CDT CPT-G0008 Administration of Influenza Virus Vaccine 16:09:59 CDT CPT-50504 Fluzone Quadrivalent Intramuscular Suspension 0.5 ML 16: 09:59 CDT CPT-28203 Spec Collection and Handling Fee 15:05:50 CDT
--- OUTSIDE RECORDS SUMMARY | 2018-04-18 13:26 | XMS REPORT | Clinical Summary ---
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 HYDRALAZINE HCL 64609705882 Active Rober Rodríguez APRN Active VITAMIN D3 68935 UNIT ORAL TABS 2 po weekly CHOLECALCIFEROL 21669063732 Active JONATHAN Moncada Active OXYCODONE HCL ER 10 MG ORAL T12A 1 tab po 3 times qd. OXYCODONE HCL 91212501320 Active Robbie Busby MD Active NITROSTAT 0.4 MG SUBL PRN NITROGLYCERIN 34773230837 No Longer Active Robbie Busby MD Active LORATADINE 10 MG TABS 1 tablet by mouth daily for congestion and allergies. LORATADINE 47424173593 No Longer Active Robbie Busby MD Active FLONASE 50 MCG/ACT SUSP 1 spray each nostril twice daily for allergies and runny nose FLUTICASONE PROPIONATE 07497607375 No Longer Active Robbie Busby MD Active FIORICET 50-300-40 MG ORAL CAPS take 1 tab po qday prn migraines. [id number] 10689790854 No Longer Active Robbie Busby MD Active VITAMIN D3 23080 UNIT CAPS 2 CAPS PO WEEKLY CHOLECALCIFEROL 66216188720 No Longer Active Robbie Busby MD Active CYCLOBENZAPRINE HCL 10 MG TABS 1 tablet by mouth three times daily as needed for muscle spasm/pain for 10 days CYCLOBENZAPRINE HCL 26776016117 No Longer Active Robbie Busby MD Active PREDNISONE 20 MG TAB take 3 tabs daily for 3 days, 2 tabs daily for 3 days, 1 tab daily for 3 days, 1/2 tab daily for 4 days PREDNISONE 16231039975 No Longer Active Erin Garsia APRN Active CLONIDINE HCL 0.2 MG ORAL TABS 1 TAB BY MOUTH EVERY 8 HOURS 12/29 CLONIDINE HCL 77344269887 No Longer Active Erin Garsia APRN Active MECLIZINE HCL 25 MG TAB one 4 times a day as needed for dizziness MECLIZINE HCL 67377935474 No Longer Active Erin Garsia APRN Active SPIRONOLACTONE 25 MG TAB 4 tablets by mouth daily SPIRONOLACTONE 40496287351 No Longer Active Erin Garsia APRN Active LEVAQUIN 500 MG TAB 1 tablet by mouth daily for 7 days LEVOFLOXACIN 86603110402 No Longer Active Erin Garsia APRN Active BACTRIM DS 800-160 MG TAB 1 tab by mouth twice daily TRIMETHOPRIM-SULFAMETHOXAZOLE 37998772378 No Longer Active Robbie Busby MD Active HYDRALAZINE HCL 50 MG ORAL TABS TWO BY MOUTH THREE TIMES DAILY HYDRALAZINE HCL 56064462374 No Longer Active Jillina Frakierstenl 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 HYDROCODONE-ACETAMINOPHEN 5-325 MG TABS 1 tab by mouth BID prn back pain 2013 HYDROCODONE-ACETAMINOPHEN 02202650983 No Longer Active 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 HYDROCHLOROTHIAZIDE TABS Take one by mouth daily HYDROCHLOROTHIAZIDE TABS 30567245571 No Longer Active 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 LAMISIL 125 MG ORAL PACK 1 TAB PO DAILY TERBINAFINE HCL 26487324472 No Longer Active 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 TRILEPTAL 150 MG ORAL TABS 1 TAB PO Q HS OXCARBAZEPINE 03538559710 No Longer Active 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 BETADINE 10 % EXT SOLN wash with solution to treat follicultis POVIDONE-IODINE 05477095358 No Longer Active 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 NYSTATIN 343369 UNIT/ML M/T SUSP 5mL po QID x 10 days NYSTATIN 43170095176 No Longer Active Erin Garsia APRN Active PREDNISONE 20 MG TAB 1 tablet twice daily for 2 days, then 1 tablet once daily for 2 days PREDNISONE 38607445248 No Longer Active Robbie Busby MD Active CEFDINIR 300 MG ORAL CAPS Take 1 cap po bid x 10 days CEFDINIR 86712114826 No Longer Active Robbie Busby MD Active AMLODIPINE BESYLATE 10 MG TABS 1 tablet by mouth daily AMLODIPINE BESYLATE 70900724755 Active Robbie Busby MD Active CARVEDILOL 25 MG TABS 1 & 1/2 TAB po BID CARVEDILOL 43336966126 Active Robbie Busby MD Active NEXIUM 40 MG CPDR 1 cap by mouth daily ESOMEPRAZOLE MAGNESIUM 61391191767 Active Robbie Busby MD Active PROTONIX 40 MG SOLR 1 po qday for acid reflux PANTOPRAZOLE SODIUM 65857706913 No Longer Active Gali Raida Active KEFLEX 500 MG CAP 1 po TID x 10 days CEPHALEXIN 10529281637 No Longer Active Robbie Busby MD Active TOPIRAMATE 50 MG ORAL TABS take 1 tab po BID for migraines. TOPIRAMATE 64051996206 Active Robbie Busby MD Active TEMAZEPAM 15 MG ORAL CAPS 1 TAB PO Q HS TEMAZEPAM 78664948807 Active Robbie Busby MD Active ALPRAZOLAM 2 MG ORAL TABS 1 TAB PO BID ALPRAZOLAM 87892120790 Active Robbie Busby MD Active FENOFIBRATE 145 MG TABS Take one by mouth daily FENOFIBRATE 74245507920 No Longer Active Robbie Busby MD Active SPIRONOLACTONE 50 MG TABS 1 tablet by mouth twice a day SPIRONOLACTONE 83893605268 No Longer Active Robbie Busby MD Active HYDRALAZINE HCL 25 MG TABS 1 tablet by mouth tid for hypertension HYDRALAZINE HCL 41468886811 No Longer Active Robbie Busby MD Active VIIBRYD 40 MG TABS take 1 tab po qday for depression. VILAZODONE HCL 14949235843 No Longer Active Robbie Busby MD Active TERBINAFINE HCL 250 MG TABS 1 tab po qday for foot infection 2014 TERBINAFINE HCL 23859430226 No Longer Active Robbie Busby MD Active GABAPENTIN 300 MG CAPS 1 po q hs for nerve pain GABAPENTIN 39887344090 Active Robbie Busby MD Active CHERATUSSIN AC 100-10 MG/5ML ORAL SOLN 7.5 mL PO q 4-6 hrs PRN cough GUAIFENESIN-CODEINE 21079512508 No Longer Active Robbie Busby MD Active AZITHROMYCIN 250 MG ORAL TABS 2 tablets PO today---then, 1 tablet PO daily x 4 more days (and 1 optional refill) AZITHROMYCIN 81142236697 No Longer Active Robbie Busby MD Active NORVASC 10 MG TAB 1 tablet by mouth daily AMLODIPINE BESYLATE 08313630409 No Longer Active Alex ALVAREZ Active IMDUR 60 MG TAB CR take 1 tab po qday for blood pressure ISOSORBIDE MONONITRATE Active Robbie Busby MD Active ISOSORBIDE DINITRATE 30 MG TABS Take one by mouth daily ISOSORBIDE DINITRATE 46550406165 No Longer Active Robbie Busby MD Active VIIBRYD 40 MG TABS 1 TA B PO DAILY VILAZODONE HCL 06743112453 Active Robbie Busby MD Active ZITHROMAX 250 MG TAB 2 po today, then 1 po q days 2-5 AZITHROMYCIN 19838606390 No Longer Active Robbie Busby MD Active [id number] 0.3 MG/24HR PTWK apply 2 patches q week for HTN CLONIDINE HCL 23599536330 Active Robbie Busby MD Active DOXAZOSIN MESYLATE 4 MG TABS Take one by mouth daily DOXAZOSIN MESYLATE 66985636683 Active Robbie Busby MD Active TOPROL XL 200 MG [id number]-XMX Take one by mouth daily METOPROLOL SUCCINATE 65186885222 Active Robbie Busby MD Active VENLAFAXINE HCL ER 150 MG [id number]-TWW Take one by mouth daily VENLAFAXINE HCL 94728956359 Active Robbie Busby MD Active LIPITOR 40 MG TABS Take one by mouth daily ATORVASTATIN CALCIUM 11230160994 Active Robbie Busby MD Active ISOSORBIDE DINITRATE 30 MG TABS Take one by mouth daily ISOSORBIDE DINITRATE 30 MG TABS 132318 ISOSORBIDE DINITRATE Inactive NORVASC 10 MG TAB 1 tablet by mouth daily NORVASC 10 MG TAB 554567 AMLODIPINE BESYLATE Inactive AZITHROMYCIN 250 MG ORAL TABS 2 tablets PO today---then, 1 tablet PO daily x 4 more days (and 1 optional refill) AZITHROMYCIN 250 MG ORAL TABS 8116491 AZITHROMYCIN Inactive CHERATUSSIN AC 100-10 MG/5ML ORAL SOLN 7.5 mL PO q 4-6 hrs PRN cough CHERATUSSIN AC 100-10 MG/5ML ORAL SOLN 005800 GUAIFENESIN- CODEINE Inactive VIIBRYD 40 MG TABS take 1 tab po qday for depression. VIIBRYD 40 MG TABS VILAZODONE HCL Inactive HYDRALAZINE HCL 25 MG TABS 1 tablet by mouth tid for hypertension HYDRALAZINE HCL 25 MG TABS 090662 HYDRALAZINE HCL Inactive SPIRONOLACTONE 50 MG TABS 1 tablet by mouth twice a day SPIRONOLACTONE 50 MG TABS 476061 SPIRONOLACTONE Inactive FENOFIBRATE 145 MG TABS Take one by mouth daily FENOFIBRATE 145 MG TABS 594215 FENOFIBRATE Inactive PROTONIX 40 MG SOLR 1 po qday for acid reflux PROTONIX 40 MG SOLR 109190 PANTOPRAZOLE SODIUM Inactive CEFDINIR 300 MG ORAL CAPS Take 1 cap po bid x 10 days CEFDINIR 300 MG ORAL CAPS 354575 CEFDINIR Inactive PREDNISONE 20 MG TAB 1 tablet twice daily for 2 days, then 1 tablet once daily for 2 days PREDNISONE 20 MG TAB 495141 PREDNISONE Inactive NYSTATIN 749083 UNIT/ML M/T SUSP 5mL po QID x 10 days NYSTATIN 641516 UNIT/ML M/T SUSP 729804 NYSTATIN Inactive BETADINE 10 % EXT SOLN wash with solution to treat follicultis BETADINE 10 % EXT SOLN 1472639 POVIDONE-IODINE Inactive TRILEPTAL 150 MG ORAL TABS 1 TAB PO Q HS TRILEPTAL 150 MG ORAL TABS 107645 OXCARBAZEPINE Inactive LAMISIL 125 MG ORAL PACK 1 TAB PO DAILY LAMISIL 125 MG ORAL PACK TERBINAFINE HCL Inactive HYDROCHLOROTHIAZIDE TABS Take one by mouth daily HYDROCHLOROTHIAZIDE TABS HYDROCHLOROTHIAZIDE TABS Inactive HYDROCODONE-ACETAMINOPHEN 5-325 MG TABS 1 tab by mouth BID prn back pain 2013 HYDROCODONE-ACETAMINOPHEN 5-325 MG TABS 975843 HYDROCODONE -ACETAMINOPHEN Inactive HYDRALAZINE HCL 50 MG ORAL TABS TWO BY MOUTH THREE TIMES DAILY HYDRALAZINE HCL 50 MG ORAL TABS 541581 HYDRALAZINE HCL Inactive LEVAQUIN 500 MG TAB 1 tablet by mouth daily for 7 days LEVAQUIN 500 MG TAB 329383 LEVOFLOXACIN Inactive SPIRONOLACTONE 25 MG TAB 4 tablets by mouth daily SPIRONOLACTONE 25 MG TAB 672939 SPIRONOLACTONE Inactive MECLIZINE HCL 25 MG TAB one 4 times a day as needed for dizziness MECLIZINE HCL 25 MG TAB 902460 MECLIZINE HCL Inactive CLONIDINE HCL 0.2 MG ORAL TABS 1 TAB BY MOUTH EVERY 8 HOURS 12/29 CLONIDINE HCL 0.2 MG ORAL TABS 913807 CLONIDINE HCL Inactive CYCLOBENZAPRINE HCL 10 MG TABS 1 tablet by mouth three times daily as needed for muscle spasm/pain for 10 days CYCLOBENZAPRINE HCL 10 MG TABS 538975 CYCLOBENZAPRINE HCL Inactive VITAMIN D3 26496 UNIT CAPS 2 CAPS PO WEEKLY VITAMIN D3 07829 UNIT CAPS CHOLECALCIFEROL Inactive FIORICET 50-300-40 MG ORAL CAPS take 1 tab po qday prn migraines. FIORICET 50-300-40 MG ORAL CAPS 439864 [id number] Inactive FLONASE 50 MCG/ACT SUSP 1 spray each nostril twice daily for allergies and runny nose FLONASE 50 MCG/ACT SUSP 7812841 FLUTICASONE PROPIONATE Inactive LORATADINE 10 MG TABS 1 tablet by mouth daily for congestion and allergies. LORATADINE 10 MG TABS 718041 LORATADINE Inactive NITROSTAT 0.4 MG SUBL PRN NITROSTAT 0.4 MG SUBL 280883 NITROGLYCERIN Inactive ZITHROMAX 250 MG TAB 2 po today, then 1 po q days 2-5 ZITHROMAX 250 MG TAB 8156702 AZITHROMYCIN Inactive TERBINAFINE HCL 250 MG TABS 1 tab po qday for foot infection 2014 TERBINAFINE HCL 250 MG TABS 238447 TERBINAFINE HCL Inactive KEFLEX 500 MG CAP 1 po TID x 10 days KEFLEX 500 MG CAP 188655 CEPHALEXIN Inactive BACTRIM DS 800-160 MG TAB 1 tab by mouth twice daily BACTRIM DS 800-160 MG TAB 291431 TRIMETHOPRIM-SULFAMETHOXAZOLE Inactive PREDNISONE 20 MG TAB take 3 tabs daily for 3 days, 2 tabs daily for 3 days, 1 tab daily for 3 days, 1/2 tab daily for 4 days PREDNISONE 20 MG TAB 269294 PREDNISONE Inactive Advance Directives Directive Description Start [...] AUTO - Chemistry sodium, serum 142 mmol/L 126-292 3283/07/17 carbon dioxide, venous blood 28.2 mmol/L 21.0-32.0 [...] % 11.0-15.0 platelet count 185 THOUSAND/UL 10*3/mm3 591-365 2636/04/14 mean platelet volume 10.9 fL 7.5-12.5 Lab Report: LIPID PANEL, TSH/899, T4, FREE/866 - Chemistry cholesterol, serum 220 mg/dL 952-165 7857/04/14 HDL cholesterol, serum 30 mg/dL > OR=40 triglyceride, serum, fasting 466 mg/dL <150 LDL cholesterol, serum SEE NOTE mg/dL (calc) mg/dL <130 cholesterol/HDL ratio, serum 7.3 (calc) < OR=5.0 Lab Report: MICROALB/CREAT W/RATIO - Chemistry albumin/creatinine ratio, urine < 30 mg/g mg/g{creat} 0-29 Lab Report: MICROALB/CREAT W/RATIO - Lab microalbumin, urine 80 0-19 Lab Report: VITAMIN D, 25-HYDROXY/35294 - Chemistry vitamin D 25-hydroxy, serum 25 ng/mL 30-100 Office Visit: Confusion, dizziness after fall - Basic LDL target level 130 mg/dL Office Visit: Confusion, dizziness after fall - Chemistry HDL cholesterol, serum, target level 40 mg/dL triglyceride, target level 150 mg/dL cholesterol, target level 200 mg/dL Encounters Code Encounter Date Provider Facility CPT-22471 Level 3 Est. Patient 09:00:37 CDT Rober Rodríguez [facility] CPT-07021 Level 3 Est. Patient 16:07:10 CDT Robbie Busby MD [facility] CPT-82986 Level 4 Est. Patient 11:56:16 CDT Erin Garsia [facility] CPT-19172 Level 3 Est. Patient 17:48:02 CDT Robbie Busby MD [facility] CPT-90546 Level 4 Est. Patient 12:00:49 [employer]IDE [employer]ES Rober Rodríguez [facility] CPT-25322 Level 3 Est. Patient 09:16:37 CDT Robbie Busby MD [facility] CPT-04924 Level 3 Est. Patient 19:38:43 CDT Robbie Busby MD [facility] CPT-53300 Level 3 Est. Patient 11:53:38 CDT Robbie Busby MD [facility] CPT-10160 Level 4 Est. Patient 12:52:22 CDT Rober Rodríguez [facility] CPT-93947 Level 4 Est. Patient 22:55:17 CDT Robbie Busby MD [facility] CPT-02657 Level 3 Est. Patient 12:38:24 CDT Desmond Diaz DO [facility] CPT-83328 Level 4 Est. Patient 11:25:03 INSIDE SALES Robbie Busby MD [facility] CPT-02769 Level 4 Est. Patient 14:50:10 CDT Robbie Busby MD [facility] CPT-08316 Level 4 Est. Patient 23:30:43 CDT Robbie Busby MD [facility] CPT-12034 Level 4 Est. Patient 10:30:43 CDT Robbie Busby MD [facility] CPT-01674 Level 3 Est. Patient 17:08:12 CDT Alex Shaw [facility] CPT-86944 Level 4 Est. Patient 17:51:38 CDT Robbie Busby MD [facility] CPT-48841 Level 4 Est. Patient 14:00:21 CDT Robbie Busby MD [facility] CPT-61276 Level 4 Est. Patient 12:46:48 CDT Robbie Busby MD [facility] CPT-91660 Level 4 Est. Patient 13:34:33 CDT Robbie Busby MD [facility] CPT-05362 Level 4 Est. Patient 16:58:28 CDT Robbie Busby MD [facility] CPT-46874 Level 3 Est. Patient 19:36:53 CDT Alex Shaw [facility] CPT-42968 Level 3 Est. Patient 12:58:15 CDT Robbie Busby MD [facility] Procedures Code Procedure Name Date Entry Date Standard Description CPT-72628 Venipuncture Draw Fee 14:39:06 CDT CPT-75711 Ribs unilateral 2V - XRAY USE ONLY 12:10:11 CDT CPT-15475 First Vx - Ix admin for Medicare patients 16:32:53 CDT CPT-50177 Boostrix Intramuscular Suspension 5-2.5-18.5 16:32:53 CDT CPT-28279 TB Skin Test 11:42:28 CDT CPT-59974 Tdap 7yrs or > 11:42:28 CDT CPT-J0696 Rocephin 1000 mg (Ceftriaxone) 17:43:43 INSIDE SALES CPT-J1040 Depo Medrol 80 mg (Methyl Prednisolone Acetate) 17:43: 43 INSIDE SALES CPT-J1100 Decadron 8mg (Dexamethasone) 17:43:42 INSIDE SALES CPT-15459 Abx/Therapy Injection 17:43:42 INSIDE SALES CPT-19790 Abx/Therapy Injection 17:43:42 INSIDE SALES CPT-J1040 Depo Medrol 80 mg (Methyl Prednisolone Acetate) 09:43: 34 INSIDE SALES CPT-J1100 Decadron 8mg (Dexamethasone) 09:43:34 INSIDE SALES CPT-J0696 Rocephin 1gm Inj Solr 09:43:34 INSIDE SALES CPT-33767 Wound Culture - LAB USE ONLY 14:00:21 CDT CPT-I/D I/D Abscess 09:16:37 CDT CPT-88173 Venipuncture Draw Fee 15:20:23 CDT CPT-55443 Microalbumin - LAB USE ONLY 16:02:19 CDT CPT-56496 CBC - LAB USE ONLY 16:02:19 CDT CPT-19520 Venipuncture Draw Fee 16:02:19 CDT CPT-G0438 Initial Annual Wellness Exam 08:10:28 CDT CPT-86469 Venipuncture Draw Fee 13:07:17 CDT CPT-G0008 Administration of Influenza Virus Vaccine 16:09:59 CDT CPT-27082 Fluzone Quadrivalent Intramuscular Suspension 0.5 ML 16: 09:59 CDT CPT-26573 Spec Collection and Handling Fee 15:05:50 CDT
--- OUTSIDE RECORDS SUMMARY | 2018-04-18 13:27 | XMS REPORT | Clinical Summary ---
Author Author Admin, AKUA Organization [employer] Address Unknown Phone Unavailable Allergies, Adverse [...] Esophageal reflux Bronchitis, acute 466.0 Active Alex ALVAERZ Acute bronchitis Seasonal allergies 477.9 Active Robbie [...] unspecified sites URI 465.9 Active Rober Rodríguez ASH COLLECTOR Acute upper respiratory infections of unspecified site [...] Status Provider Patient Instruction GUAIFENESIN 600 MG [id number] 1 tab po q am GUAIFENESIN 75430964544 No Longer Active Robbie Busby MD Active DIVALPROEX SODIUM ER 500 MG ORAL TABLET EXTENDED RELEASE 24 HOUR Once daily DIVALPROEX SODIUM 40989129514 Active Robbie Busby MD Active DEPO-TESTOSTERONE 200 MG/ML IM SOLN 1 IM Injections every 2 weeks for low testosterone TESTOSTERONE CYPIONATE 91291639102 Active Zulema Blank LPN Active CYCLOBENZAPRINE HCL 10 MG ORAL TABS 1 po TID PRN muscle spasm/pain for 10 days CYCLOBENZAPRINE HCL 32132498323 Active JONATHAN Moncada Active FLUTICASONE PROPIONATE 50 MCG/ACT SUSP 2 sprays per nostril bid for 1 week, then 1 spray bid FLUTICASONE PROPIONATE 40652250636 Active Jillina Franeha ASH COLLECTOR Active HYDRALAZINE HCL 25 MG ORAL TABS Take 1 tab BID. HYDRALAZINE HCL 09448349369 Active Jillina Anne ASH COLLECTOR Active VITAMIN D3 97966 UNIT ORAL TABS 2 po weekly CHOLECALCIFEROL 70987640198 Active Robbie Busby MD Active OXYCODONE HCL ER 10 MG ORAL T12A 1 tab po 3 times qd. OXYCODONE HCL 57232155533 Active oRbbie Busby MD Active NITROSTAT 0.4 MG SUBL PRN NITROGLYCERIN 82505895575 No Longer Active Robbie Busby MD Active LORATADINE 10 MG TABS 1 tablet by mouth daily for congestion and allergies. LORATADINE 06487243304 No Longer Active Robbie Busby MD Active FLONASE 50 MCG/ACT SUSP 1 spray each nostril twice daily for allergies and runny nose FLUTICASONE PROPIONATE 61220999017 No Longer Active Robbie Busby MD Active FIORICET 50-300-40 MG ORAL CAPS take 1 tab po qday prn migraines. [id number] 15968259611 No Longer Active Robbie Busby MD Active VITAMIN D3 81987 UNIT CAPS 2 CAPS PO WEEKLY CHOLECALCIFEROL 56833374863 No Longer Active Robbie Busby MD Active CYCLOBENZAPRINE HCL 10 MG TABS 1 tablet by mouth three times daily as needed for muscle spasm/pain for 10 days CYCLOBENZAPRINE HCL 25471984301 No Longer Active Robbie Busby MD Active PREDNISONE 20 MG TAB take 3 tabs daily for 3 days, 2 tabs daily for 3 days, 1 tab daily for 3 days, 1/2 tab daily for 4 days PREDNISONE 92150333942 No Longer Active Erin Garsia APRN Active CLONIDINE HCL 0.2 MG ORAL TABS 1 TAB BY MOUTH EVERY 8 HOURS 12/29 CLONIDINE HCL 33715434825 No Longer Active Erin Garsia APRN Active MECLIZINE HCL 25 MG TAB one 4 times a day as needed for dizziness MECLIZINE HCL 03058198703 No Longer Active Erin Garsia APRN Active SPIRONOLACTONE 25 MG TAB 4 tablets by mouth daily SPIRONOLACTONE 18440873561 No Longer Active Erin Garsia APRN Active LEVAQUIN 500 MG TAB 1 tablet by mouth daily for 7 days LEVOFLOXACIN 54745115816 No Longer Active Erin Garsia APRN Active BACTRIM DS 800-160 MG TAB 1 tab by mouth twice daily TRIMETHOPRIM-SULFAMETHOXAZOLE 49360643501 No Longer Active Robbie Busby MD Active HYDRALAZINE HCL 50 MG ORAL TABS TWO BY MOUTH THREE TIMES DAILY HYDRALAZINE HCL 82384749389 No Longer Active Jillld Rodríguez APRN Active HYDROCODONE-ACETAMINOPHEN 5-325 MG TABS 1 tab by mouth BID prn back pain 2013 HYDROCODONE-ACETAMINOPHEN 21222401120 No Longer Active Jillina Zulemal ASH COLLECTOR Active HYDROCHLOROTHIAZIDE TABS Take one by mouth daily HYDROCHLOROTHIAZIDE TABS 62736777117 No Longer Active Jillina Frakierstenl ASH COLLECTOR Active LAMISIL 125 MG ORAL PACK 1 TAB PO DAILY TERBINAFINE HCL 54981611568 No Longer Active Jillina Frakierstenl ASH COLLECTOR Active TRILEPTAL 150 MG ORAL TABS 1 TAB PO Q HS OXCARBAZEPINE 19828954793 No Longer Active Jillina Frakierstenl ASH COLLECTOR Active BETADINE 10 % EXT SOLN wash with solution to treat follicultis POVIDONE-IODINE 18874580768 No Longer Active Rober Rodríguez APRN Active NYSTATIN 609504 UNIT/ML M/T SUSP 5mL po QID x 10 days NYSTATIN 64091814126 No Longer Active Erin Garsia APRN Active PREDNISONE 20 MG TAB 1 tablet twice daily for 2 days, then 1 tablet once daily for 2 days PREDNISONE 72047103788 No Longer Active Robbie Busby MD Active CEFDINIR 300 MG ORAL CAPS Take 1 cap po bid x 10 days CEFDINIR 55362915419 No Longer Active Robbie Busby MD Active AMLODIPINE BESYLATE 10 MG TABS 1 tablet by mouth daily AMLODIPINE BESYLATE 72111403311 Active Robbie Busby MD Active CARVEDILOL 25 MG TABS 1 & 1/2 TAB po BID CARVEDILOL 95856839746 Active Robbie Busby MD Active NEXIUM 40 MG CPDR 1 cap by mouth daily ESOMEPRAZOLE MAGNESIUM 58136431493 Active Robbie Busby MD Active PROTONIX 40 MG SOLR 1 po qday for acid reflux PANTOPRAZOLE SODIUM 87149592351 No Longer Active Gali Raida Active KEFLEX 500 MG CAP 1 po TID x 10 days CEPHALEXIN 76241324521 No Longer Active Robbie Busby MD Active TOPIRAMATE 50 MG ORAL TABS take 1 tab po BID for migraines. TOPIRAMATE 63097243175 Active Robbie Busby MD Active TEMAZEPAM 15 MG ORAL CAPS 1 TAB PO Q HS TEMAZEPAM 48631294496 Active Robbie Busby MD Active ALPRAZOLAM 2 MG ORAL TABS 1 TAB PO BID ALPRAZOLAM 60319280702 Active Robbie Busby MD Active FENOFIBRATE 145 MG TABS Take one by mouth daily FENOFIBRATE 44947006957 No Longer Active Robbie Busby MD Active SPIRONOLACTONE 50 MG TABS 1 tablet by mouth twice a day SPIRONOLACTONE 82117807814 No Longer Active Robbie Busby MD Active HYDRALAZINE HCL 25 MG TABS 1 tablet by mouth tid for hypertension HYDRALAZINE HCL 00365040054 No Longer Active Robbie Busby MD Active VIIBRYD 40 MG TABS take 1 tab po qday for depression. VILAZODONE HCL 57307050844 No Longer Active Robbie Busby MD Active TERBINAFINE HCL 250 MG TABS 1 tab po qday for foot infection 2014 TERBINAFINE HCL 32832656231 No Longer Active Robbie Busby MD Active GABAPENTIN 300 MG CAPS 1 po q hs for nerve pain GABAPENTIN 60935507022 Active Robbie Busby MD Active CHERATUSSIN AC 100-10 MG/5ML ORAL SOLN 7.5 mL PO q 4-6 hrs PRN cough GUAIFENESIN-CODEINE 37335761371 No Longer Active Robbie Busby MD Active AZITHROMYCIN 250 MG ORAL TABS 2 tablets PO today---then, 1 tablet PO daily x 4 more days (and 1 optional refill) AZITHROMYCIN 52435196889 No Longer Active Robbie Busby MD Active NORVASC 10 MG TAB 1 tablet by mouth daily AMLODIPINE BESYLATE 66895806276 No Longer Active Alex ALVAREZ Active IMDUR 60 MG TAB CR take 1 tab po qday for blood pressure ISOSORBIDE MONONITRATE Active Robbie Busby MD Active ISOSORBIDE DINITRATE 30 MG TABS Take one by mouth daily ISOSORBIDE DINITRATE 95694916442 No Longer Active Robbie Busby MD Active VIIBRYD 40 MG TABS 1 TA B PO DAILY VILAZODONE HCL 25713881547 Active Robbie Busby MD Active ZITHROMAX 250 MG TAB 2 po today, then 1 po q days 2-5 AZITHROMYCIN 26783077695 No Longer Active Robbie Busby MD Active [id number] 0.3 MG/24HR PTWK apply 2 patches q week for HTN CLONIDINE HCL 82330656870 Active Robbie Busby MD Active DOXAZOSIN MESYLATE 4 MG TABS Take one by mouth daily DOXAZOSIN MESYLATE 78683090305 Active Robbie Busby MD Active TOPROL XL 200 MG [id number] Take one by mouth daily METOPROLOL SUCCINATE 81363948643 Active Robbie Busby MD Active VENLAFAXINE HCL ER 150 MG [id number] Take one by mouth daily VENLAFAXINE HCL 10659005087 Active Robbie Busby MD Active LIPITOR 40 MG TABS Take one by mouth daily ATORVASTATIN CALCIUM 41787041188 Active Robbie Busby MD Active HYDROCHLOROTHIAZIDE TABS Take one by mouth daily HYDROCHLOROTHIAZIDE TABS HYDROCHLOROTHIAZIDE TABS Inactive BACTRIM DS 800-160 MG TAB 1 tab by mouth twice daily BACTRIM DS 800-160 MG TAB 699985 TRIMETHOPRIM-SULFAMETHOXAZOLE Inactive BETADINE 10 % EXT SOLN wash with solution to treat follicultis BETADINE 10 % EXT SOLN 1640015 POVIDONE-IODINE Inactive CLONIDINE HCL 0.2 MG ORAL TABS 1 TAB BY MOUTH EVERY 8 HOURS 12/29 CLONIDINE HCL 0.2 MG ORAL TABS 106803 CLONIDINE HCL Inactive CYCLOBENZAPRINE HCL 10 MG TABS 1 tablet by mouth three times daily as needed for muscle spasm/pain for 10 days CYCLOBENZAPRINE HCL 10 MG TABS 016303 CYCLOBENZAPRINE HCL Inactive HYDRALAZINE HCL 25 MG TABS 1 tablet by mouth tid for hypertension HYDRALAZINE HCL 25 MG TABS 123708 HYDRALAZINE HCL Inactive HYDRALAZINE HCL 50 MG ORAL TABS TWO BY MOUTH THREE TIMES DAILY HYDRALAZINE HCL 50 MG ORAL TABS 938616 HYDRALAZINE HCL Inactive ISOSORBIDE DINITRATE 30 MG TABS Take one by mouth daily ISOSORBIDE DINITRATE 30 MG TABS 163281 ISOSORBIDE DINITRATE Inactive KEFLEX 500 MG CAP 1 po TID x 10 days KEFLEX 500 MG CAP 129458 CEPHALEXIN Inactive NITROSTAT 0.4 MG SUBL PRN NITROSTAT 0.4 MG SUBL 079952 NITROGLYCERIN Inactive NORVASC 10 MG TAB 1 tablet by mouth daily NORVASC 10 MG TAB 308967 AMLODIPINE BESYLATE Inactive NYSTATIN 068129 UNIT/ML M/T SUSP 5mL po QID x 10 days NYSTATIN 347311 UNIT/ML M/T SUSP 780296 NYSTATIN Inactive PREDNISONE 20 MG TAB 1 tablet twice daily for 2 days, then 1 tablet once daily for 2 days PREDNISONE 20 MG TAB 660218 PREDNISONE Inactive PREDNISONE 20 MG TAB take 3 tabs daily for 3 days, 2 tabs daily for 3 days, 1 tab daily for 3 days, 1/2 tab daily for 4 days PREDNISONE 20 MG TAB 023208 PREDNISONE Inactive SPIRONOLACTONE 25 MG TAB 4 tablets by mouth daily SPIRONOLACTONE 25 MG TAB 096552 SPIRONOLACTONE Inactive LORATADINE 10 MG TABS 1 tablet by mouth daily for congestion and allergies. LORATADINE 10 MG TABS 953841 LORATADINE Inactive SPIRONOLACTONE 50 MG TABS 1 tablet by mouth twice a day SPIRONOLACTONE 50 MG TABS 190330 SPIRONOLACTONE Inactive MECLIZINE HCL 25 MG TAB one 4 times a day as needed for dizziness MECLIZINE HCL 25 MG TAB 365501 MECLIZINE HCL Inactive TERBINAFINE HCL 250 MG TABS 1 tab po qday for foot infection 2014 TERBINAFINE HCL 250 MG TABS 539390 TERBINAFINE HCL Inactive LEVAQUIN 500 MG TAB 1 tablet by mouth daily for 7 days LEVAQUIN 500 MG TAB 885970 LEVOFLOXACIN Inactive ZITHROMAX 250 MG TAB 2 po today, then 1 po q days 2-5 ZITHROMAX 250 MG TAB 170429 AZITHROMYCIN Inactive AZITHROMYCIN 250 MG ORAL TABS 2 tablets PO today---then, 1 tablet PO daily x 4 more days (and 1 optional refill) AZITHROMYCIN 250 MG ORAL TABS 512557 AZITHROMYCIN Inactive CEFDINIR 300 MG ORAL CAPS Take 1 cap po bid x 10 days CEFDINIR 300 MG ORAL CAPS 196373 CEFDINIR Inactive TRILEPTAL 150 MG ORAL TABS 1 TAB PO Q HS TRILEPTAL 150 MG ORAL TABS 593485 OXCARBAZEPINE Inactive PROTONIX 40 MG SOLR 1 po qday for acid reflux PROTONIX 40 MG SOLR 137306 PANTOPRAZOLE SODIUM Inactive FLONASE 50 MCG/ACT SUSP 1 spray each nostril twice daily for allergies and runny nose FLONASE 50 MCG/ACT SUSP 0928516 FLUTICASONE PROPIONATE Inactive HYDROCODONE-ACETAMINOPHEN 5-325 MG TABS 1 tab by mouth BID prn back pain 2013 HYDROCODONE-ACETAMINOPHEN 5-325 MG TABS 108702 HYDROCODONE -ACETAMINOPHEN Inactive GUAIFENESIN 600 MG [id number] 1 tab po q am GUAIFENESIN 600 MG [id number] GUAIFENESIN Inactive FENOFIBRATE 145 MG TABS Take one by mouth daily FENOFIBRATE 145 MG TABS 873738 FENOFIBRATE Inactive LAMISIL 125 MG ORAL PACK 1 TAB PO DAILY LAMISIL 125 MG ORAL PACK TERBINAFINE HCL Inactive VIIBRYD 40 MG TABS take 1 tab po qday for depression. VIIBRYD 40 MG TABS VILAZODONE HCL Inactive VITAMIN D3 79824 UNIT CAPS 2 CAPS PO WEEKLY VITAMIN D3 15371 UNIT CAPS CHOLECALCIFEROL Inactive CHERATUSSIN AC 100-10 MG/5ML ORAL SOLN 7.5 mL PO q 4-6 hrs PRN cough CHERATUSSIN AC 100-10 MG/5ML ORAL SOLN 355513 GUAIFENESIN- CODEINE Inactive FIORICET 50-300-40 MG ORAL CAPS take 1 tab po qday prn migraines. FIORICET 50-300-40 MG ORAL CAPS 732492 [id number] Inactive Advance Directives Directive Description Start Date [...] AUTO - Chemistry sodium, serum 142 mmol/L 403-374 2764/07/17 carbon dioxide, venous blood 28.2 mmol/L 21.0-32.0 [...] % 11.0-15.0 platelet count 185 THOUSAND/UL 10*3/mm3 929-941 3124/04/14 mean platelet volume 10.9 fL 7.5-12.5 Lab Report: LIPID PANEL, TSH/899, T4, FREE/866 - Chemistry cholesterol, serum 220 mg/dL 938-593 3416/04/14 HDL cholesterol, serum 30 mg/dL > OR=40 [...] 1.80 ng/mL 0.00-4.00 Lab Report: VITAMIN D, 25-HYDROXY/50850 - Chemistry vitamin D 25-hydroxy, serum 25 ng/mL 30-100 Office Visit: Confusion, dizziness after fall - Basic LDL target level 130 mg/dL Office Visit: Confusion, dizziness after fall - Chemistry HDL cholesterol, serum, target level 40 mg/dL triglyceride, target level 150 mg/dL cholesterol, target level 200 mg/dL Encounters Code Encounter Date Provider Facility CPT-34402 Level 3 Est. Patient 15:40:49 CDT Robbie Busby MD [facility] CPT-51104 Level 4 Est. Patient 15:18:19 CDT Robbie Busby MD [facility] CPT-19393 Level 3 Est. Patient 09:00:37 CDT Rober Rodríguez [facility] [place] CPT-65042 Level 3 Est. Patient 16:07:10 CDT Robbie Busby MD [facility] CPT-35783 Level 4 Est. Patient 11:56:16 CDT Erin Garsia [facility] [place] CPT-29606 Level 3 Est. Patient 17:48:02 CDT Robbie Busby MD [facility] CPT-53294 Level 4 Est. Patient 12:00:49 [employer]STATE PL[employer]NER Rober Rodríguez [facility] [place] CPT-00425 Level 3 Est. Patient 09:16:37 CDT Robbie Busby MD [facility] CPT-98741 Level 3 Est. Patient 19:38:43 CDT Robbie Busyb MD [facility] CPT-06865 Level 3 Est. Patient 11:53:38 CDT Robbie Busby MD [facility] CPT-86652 Level 4 Est. Patient 12:52:22 CDT Rober Rodríguez [facility] CPT-42991 Level 4 Est. Patient 22:55:17 CDT Robbie Busby MD [facility] CPT-90961 Level 3 Est. Patient 12:38:24 CDT Desmond Diaz DO [facility] CPT-12264 Level 4 Est. Patient 11:25:03 INTERSTATE PLANNER Robbie Busby MD [facility] CPT-96702 Level 4 Est. Patient 14:50:10 CDT Robbie Busby MD [facility] CPT-57250 Level 4 Est. Patient 23:30:43 CDT Robbie Busby MD [facility] CPT-67856 Level 4 Est. Patient 10:30:43 CDT Robbie Busby MD [facility] CPT-79331 Level 3 Est. Patient 17:08:12 CDT Alex ALVAREZ [facility] CPT-50880 Level 4 Est. Patient 17:51:38 CDT Robbie Busby MD [facility] CPT-97871 Level 4 Est. Patient 14:00:21 CDT Robbie Busby MD [facility] CPT-90469 Level 4 Est. Patient 12:46:48 CDT Robbie Busby MD [facility] CPT-14914 Level 4 Est. Patient 13:34:33 CDT Robbie Busby MD [facility] CPT-35780 Level 4 Est. Patient 16:58:28 CDT Robbie Busby MD [facility] CPT-02380 Level 3 Est. Patient 19:36:53 CDT Alex [facility] CPT-38373 Level 3 Est. Patient 12:58:15 CDT Robbie Busby MD [facility] Procedures Code Procedure Name Date Entry Date Standard Description CPT-J1071 Depo Testosterone 200mg 10:22:56 INTERSTATE PLANNER CPT-35674 Abx/Therapy Injection 10:22:56 INTERSTATE PLANNER CPT-J1071 Depo Testosterone 200mg 15:40:23 CDT CPT-31971 Abx/Therapy Injection 15:40:23 CDT CPT-J1071 Depo Testosterone 200mg 14:20:43 CDT CPT-09325 Abx/Therapy Injection 14:20:43 CDT CPT-J1071 Depo Testosterone 200mg 14:17:22 CDT CPT-51129 Abx/Therapy Injection 14:17:22 CDT CPT-J1071 Depo Testosterone 200mg 09:03:53 CDT CPT-38443 Abx/Therapy Injection 09:03:53 CDT CPT-G0439 [facility] Annual Wellness Exam 16:47:44 CDT CPT-J1071 Depo Testosterone 200mg 09:06:28 CDT CPT-19290 Abx/Therapy Injection 09:06:28 CDT CPT-J1071 Depo Testosterone 200mg 08:30:01 CDT CPT-08738 Abx/Therapy Injection 08:30:01 CDT CPT-J1071 Depo Testosterone 200mg 08:24:00 CDT CPT-40635 Abx/Therapy Injection 08:24:00 CDT CPT-16807 Venipuncture Draw Fee 14:39:06 CDT CPT-89646 Ribs unilateral 2V - XRAY USE ONLY 12:10:11 CDT CPT-14972 First Vx - Ix admin for Medicare patients 16:32:53 CDT CPT-40586 Boostrix Intramuscular Suspension 5-2.5-18.5 16:32:53 CDT CPT-20485 TB Skin Test 11:42:28 CDT CPT-46391 Tdap 7yrs or > 11:42:28 CDT CPT-J0696 Rocephin 1000 mg (Ceftriaxone) 17:43:43 INTERSTATE PLANNER CPT-J1040 Depo Medrol 80 mg (Methyl Prednisolone Acetate) 17:43: 43 INTERSTATE PLANNER CPT-J1100 Decadron 8mg (Dexamethasone) 17:43:42 INTERSTATE PLANNER CPT-81450 Abx/Therapy Injection 17:43:42 INTERSTATE PLANNER CPT-16931 Abx/Therapy Injection 17:43:42 INTERSTATE PLANNER CPT-J1040 Depo Medrol 80 mg (Methyl Prednisolone Acetate) 09:43: 34 INTERSTATE PLANNER CPT-J1100 Decadron 8mg (Dexamethasone) 09:43:34 INTERSTATE PLANNER CPT-J0696 Rocephin 1gm Inj Solr 09:43:34 INTERSTATE PLANNER CPT-68723 Wound Culture - LAB USE ONLY 14:00:21 CDT CPT-I/D I/D Abscess 09:16:37 CDT CPT-32711 Venipuncture Draw Fee 15:20:23 CDT CPT-63862 Microalbumin - LAB USE ONLY 16:02:19 CDT CPT-01106 CBC - LAB USE ONLY 16:02:19 CDT CPT-01292 Venipuncture Draw Fee 16:02:19 CDT CPT-G0438 Initial Annual Wellness Exam 08:10:28 CDT CPT-27425 Venipuncture Draw Fee 13:07:17 CDT CPT-G0008 Administration of Influenza Virus Vaccine 16:09:59 CDT CPT-42543 Fluzone Quadrivalent Intramuscular Suspension 0.5 ML 16: 09:59 CDT CPT-30710 Spec Collection and Handling Fee 15:05:50 CDT
--- OUTSIDE RECORDS SUMMARY | 2018-04-18 13:29 | XMS REPORT | Clinical Summary ---
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2 Active Erin Mai YEAST WASHER Other testicular hypofunction Low back pain, chronic [...] unspecified site Sinusitis ICD-461.9 Inactive Emily Atwood TYING IN MACHINE OPERATOR 2017 Low back pain, acute ICD-724.2 Inactive Emily Atwood TYING IN MACHINE OPERATOR Low back pain, chronic ICD-724.2 Inactive Emily Atwood TYING IN MACHINE OPERATOR Bronchitis, acute ICD-466.0 Inactive Emily Atwood TYING IN MACHINE OPERATOR Onychomycosis, toenails ICD-110.1 Inactive Emily Atwood TYING IN MACHINE OPERATOR Dizziness ICD-780.4 Inactive Emily Atwood TYING IN MACHINE OPERATOR 2017 Folliculitis ICD-704.8 Inactive Emily Atwood TYING IN MACHINE OPERATOR Pharyngitis-Acute ICD-462 Inactive Emily Atwood TYING IN MACHINE OPERATOR Fatigue ICD-780.79 Inactive Emily Atwood TYING IN MACHINE OPERATOR 09/20 Hypertension, secondary, malignant ICD-405.09 Inactive Emily Atwood TYING IN MACHINE OPERATOR Insect bite, infected ICD-919.5 Inactive Emily Atwood TYING IN MACHINE OPERATOR Abscess, skin ICD-682.9 Inactive Meily Atwood TYING IN MACHINE OPERATOR URI ICD-465.9 Inactive Emily Atwood TYING IN MACHINE OPERATOR Sinusitis - acute ICD-461.9 Inactive Emily Atwood TYING IN MACHINE OPERATOR Acute confusion ICD-293.0 Inactive Emily Atwood TYING IN MACHINE OPERATOR Headache ICD-784.0 Inactive Emily Atwood TYING IN MACHINE OPERATOR 09/20 Back pain ICD-724.5 Inactive Emily Atwood TYING IN MACHINE OPERATOR 2017 Rib pain, right sided ICD-786.50 Inactive Emily Atwood TYING IN MACHINE OPERATOR Myalgias ICD-729.1 Inactive Emily Atwood TYING IN MACHINE OPERATOR 09/20 URI ICD-465.9 Inactive Emily Atwood TYING IN MACHINE OPERATOR Bronchitis-Acute ICD-466.0 Inactive Desmond Diaz DO Medication List Medication Instructions Start Date Stop Date Generic Name NDC Status Provider Patient Instruction PREDNISONE 20 MG ORAL TABLET 2 po qd x 5 days PREDNISONE [id number] No Longer Active Renny Bella MD Active PROMETHAZINE-CODEINE 6.25-10 MG/5ML ORAL SYRUP 5ml po q6hr PRN Cough PROMETHAZINE-CODEINE 27418738018 Active Renny Bella MD Active MONTELUKAST SODIUM 10 MG ORAL TABLET 1 tab po daily for allergies MONTELUKAST SODIUM 01469933627 Active JONATHAN Moncada Active IMDUR 60 MG ORAL TABLET EXTENDED RELEASE 24 HOUR 1 po q day ISOSORBIDE MONONITRATE 76094449665 Active Emma Hernandez Active METOPROLOL SUCCINATE ER 200 MG ORAL TABLET EXTENDED RELEASE 24 HOUR take 1 tab po qday for high blood pressure and rapid pulse METOPROLOL SUCCINATE 80132235399 Active Robbie Busby MD Active [id number]-NPE-1 0.3 MG/24HR TRANSDERMAL PATCH WEEKLY apply 2 patches q week for HTN CLONIDINE HCL 84954480116 No Longer Active Robbie Busby MD Active IMDUR 60 MG ORAL TABLET EXTENDED RELEASE 24 HOUR take 1 tab po qday for blood pressure ISOSORBIDE MONONITRATE 56005836193 No Longer Active Robbie Busby MD Active TEMAZEPAM 15 MG ORAL CAPSULE 1 TAB PO Q HS TEMAZEPAM 91651857734 No Longer Active Robbie Busby MD Active TOPIRAMATE 50 MG ORAL TABLET 1 po BID for migraines TOPIRAMATE 78838960833 No Longer Active Robbie Busby MD Active CYCLOBENZAPRINE HCL 10 MG ORAL TABLET 1 tablet by mouth three times daily as needed for muscle spasm/pain CYCLOBENZAPRINE HCL 41223153371 No Longer Active Robbie Busby MD Active TOPROL XL 200 MG ORAL TABLET EXTENDED RELEASE 24 HOUR Take one by mouth daily METOPROLOL SUCCINATE 94871506176 No Longer Active Robbie Busby MD Active METFORMIN HCL 500 MG ORAL TABLET 1 tablet by mouth daily for diabetes type 2 METFORMIN HCL 96796180627 Active Robbie Busby MD Active SINGULAIR 10 MG ORAL TABLET 1 po qday for allergies. MONTELUKAST SODIUM 20505517073 No Longer Active Robbie Busby MD Active PREDNISONE 20 MG ORAL TABLET two tabs by mouth today, then one tab by mouth days two and three PREDNISONE 26064879247 No Longer Active Robbie Busby MD Active AZITHROMYCIN 250 MG ORAL TABLET 2 po qd x 1 day, then 1 po qd x 4 days 09/20 AZITHROMYCIN 07342626113 No Longer Active Desmond Diaz DO Active TOPIRAMATE 50 MG ORAL TABLET take 1 tab po BID for migraines. TOPIRAMATE 92463268020 No Longer Active Desmond Diaz DO Active CYCLOBENZAPRINE HCL 10 MG ORAL TABLET 1 po TID PRN muscle spasm/pain for 10 days CYCLOBENZAPRINE HCL 54039995059 No Longer Active Desmond Diaz DO Active GUAIFENESIN ER 600 MG ORAL TABLET EXTENDED RELEASE 12 HOUR 1 tab po q am 2016 GUAIFENESIN 58002893027 No Longer Active Robbie Busby MD Active DIVALPROEX SODIUM ER 500 MG ORAL TABLET EXTENDED RELEASE 24 HOUR Once daily DIVALPROEX SODIUM 41711416503 Active Robbie Busby MD Active DEPO-TESTOSTERONE 200 MG/ML INTRAMUSCULAR SOLUTION 1 IM Injections every 2 weeks for low testosterone TESTOSTERONE CYPIONATE 31121542431 Active Zulema Blank LPN Active FLUTICASONE PROPIONATE 50 MCG/ACT NASAL SUSPENSION 2 sprays per nostril bid for 1 week, then 1 spray bid FLUTICASONE PROPIONATE 85348112403 Active Jillld Rodríguez APRN Active HYDRALAZINE HCL 25 MG ORAL TABLET Take 1 tab BID. HYDRALAZINE HCL 01254044580 Active Jillina Anne GONZALEZN Active VITAMIN D3 42882 UNIT ORAL TABLET 2 po weekly CHOLECALCIFEROL 31830528481 Active Robbie Busby MD Active OXYCODONE HCL ER 10 MG ORAL TABLET ER 12 HOUR ABUSE-DETERRENT 1 tab po 3 times qd. OXYCODONE HCL 92109992483 Active Robbie Busby MD Active NITROSTAT 0.4 MG SUBLINGUAL TABLET SUBLINGUAL PRN NITROGLYCERIN 22450332344 No Longer Active Robbie Busby MD Active LORATADINE 10 MG ORAL TABLET 1 tablet by mouth daily for congestion and allergies. LORATADINE 58291140870 No Longer Active Robbie Busby MD Active FLONASE 50 MCG/ACT NASAL SUSPENSION 1 spray each nostril twice daily for allergies and runny nose FLUTICASONE PROPIONATE 73513802907 No Longer Active Robbie Busby MD Active FIORICET 50-300-40 MG ORAL CAPSULE take 1 tab po qday prn migraines. [id number] 12425438333 No Longer Active Robbie Busby MD Active VITAMIN D3 59942 UNIT ORAL CAPSULE 2 CAPS PO WEEKLY CHOLECALCIFEROL 70198279655 No Longer Active Robbie Busby MD Active CYCLOBENZAPRINE HCL 10 MG ORAL TABLET 1 tablet by mouth three times daily as needed for muscle spasm/pain for 10 days CYCLOBENZAPRINE HCL 81062281192 No Longer Active Robbie Busby MD Active PREDNISONE 20 MG ORAL TABLET take 3 tabs daily for 3 days, 2 tabs daily for 3 days, 1 tab daily for 3 days, 1/2 tab daily for 4 days PREDNISONE 20102112122 No Longer Active Erin Arezane GONZALEZN Active CLONIDINE HCL 0.2 MG ORAL TABLET 1 TAB BY MOUTH EVERY 8 HOURS CLONIDINE HCL 54094374847 No Longer Active Erin Arell YEAST WASHER Active MECLIZINE HCL 25 MG ORAL TABLET one 4 times a day as needed for dizziness MECLIZINE HCL 83152059141 No Longer Active Erin Arell YEAST WASHER Active SPIRONOLACTONE 25 MG ORAL TABLET 4 tablets by mouth daily SPIRONOLACTONE 81183966058 No Longer Active Erin Arell YEAST WASHER Active LEVAQUIN 500 MG ORAL TABLET 1 tablet by mouth daily for 7 days LEVOFLOXACIN 47611982326 No Longer Active Erin Arell YEAST WASHER Active BACTRIM DS 800-160 MG ORAL TABLET 1 tab by mouth twice daily 2015 TRIMETHOPRIM-SULFAMETHOXAZOLE 86889902186 No Longer Active Robbie Busby MD Active HYDRALAZINE HCL 50 MG ORAL TABLET TWO BY MOUTH THREE TIMES DAILY HYDRALAZINE HCL 15858301500 No Longer Active Rober Rodríguez APRN Active HYDROCODONE-ACETAMINOPHEN 5-325 MG ORAL TABLET 1 tab by mouth BID prn back pain HYDROCODONE-ACETAMINOPHEN 64266087529 No Longer Active Rober Rodríguez APRN Active HYDROCHLOROTHIAZIDE TABLET Take one by mouth daily HYDROCHLOROTHIAZIDE TABS 32716123593 No Longer Active Jillina Frazell YEAST WASHER Active LAMISIL 125 MG ORAL PACKET 1 TAB PO DAILY TERBINAFINE HCL 70647052382 No Longer Active Jillina Frazell YEAST WASHER Active TRILEPTAL 150 MG ORAL TABLET 1 TAB PO Q HS OXCARBAZEPINE 97926248976 No Longer Active Jillina Frazell YEAST WASHER Active BETADINE 10 % EXTERNAL SOLUTION wash with solution to treat follicultis 07/29 POVIDONE-IODINE 47288272351 No Longer Active Jillina Frazell YEAST WASHER Active NYSTATIN 866593 UNIT/ML MOUTH/THROAT SUSPENSION 5mL po QID x 10 days NYSTATIN 68122836155 No Longer Active Erin Mai APRN Active PREDNISONE 20 MG ORAL TABLET 1 tablet twice daily for 2 days, then 1 tablet once daily for 2 days PREDNISONE 03422721307 No Longer Active Robbie Busby MD Active CEFDINIR 300 MG ORAL CAPSULE Take 1 cap po bid x 10 days CEFDINIR 34828206284 No Longer Active Robbie Busby MD Active AMLODIPINE BESYLATE 10 MG ORAL TABLET 1 tablet by mouth daily AMLODIPINE BESYLATE 29397816452 Active Robbie Busby MD Active CARVEDILOL 25 MG ORAL TABLET 1 & 1/2 TAB po BID CARVEDILOL 07601406481 Active Robbie Busby MD Active NEXIUM 40 MG ORAL CAPSULE DELAYED RELEASE 1 cap by mouth daily ESOMEPRAZOLE MAGNESIUM 09478270264 Active Robbie Busby MD Active PROTONIX 40 MG INTRAVENOUS SOLUTION RECONSTITUTED 1 po qday for acid reflux PANTOPRAZOLE SODIUM 97030848511 No Longer Active Gali Raida Active KEFLEX 500 MG ORAL CAPSULE 1 po TID x 10 days CEPHALEXIN 06247737377 No Longer Active Robbie Busby MD Active ALPRAZOLAM 2 MG ORAL TABLET 1 TAB PO BID ALPRAZOLAM 46521280523 Active Robbie Busby MD Active FENOFIBRATE 145 MG ORAL TABLET Take one by mouth daily FENOFIBRATE 03687417324 No Longer Active Robbie Busby MD Active SPIRONOLACTONE 50 MG ORAL TABLET 1 tablet by mouth twice a day SPIRONOLACTONE 79459966007 No Longer Active Robbie Busby MD Active HYDRALAZINE HCL 25 MG ORAL TABLET 1 tablet by mouth tid for hypertension 2013 HYDRALAZINE HCL 09736332868 No Longer Active Robbie Busby MD Active VIIBRYD 40 MG ORAL TABLET take 1 tab po qday for depression. 2014 VILAZODONE HCL 93247297477 No Longer Active Robbie Busby MD Active TERBINAFINE HCL 250 MG ORAL TABLET 1 tab po qday for foot infection TERBINAFINE HCL 27685080460 No Longer Active Robbie Busby MD Active GABAPENTIN 300 MG ORAL CAPSULE 1 po q hs for nerve pain GABAPENTIN 78449662999 Active Robbie Busby MD Active CHERATUSSIN AC 100-10 MG/5ML ORAL SOLUTION 7.5 mL PO q 4-6 hrs PRN cough 2014 GUAIFENESIN-CODEINE 80353151839 No Longer Active Robbie Busby MD Active AZITHROMYCIN 250 MG ORAL TABLET 2 tablets PO today---then, 1 tablet PO daily x 4 more days (and 1 optional refill) AZITHROMYCIN 71398058388 No Longer Active Robbie Busby MD Active NORVASC 10 MG ORAL TABLET 1 tablet by mouth daily AMLODIPINE BESYLATE 24433927110 No Longer Active Alex ALVAREZ Active ISOSORBIDE DINITRATE 30 MG ORAL TABLET Take one by mouth daily ISOSORBIDE DINITRATE 96205758458 No Longer Active Robbie Busby MD Active VIIBRYD 40 MG ORAL TABLET 1 TA B PO DAILY VILAZODONE HCL 85100610068 Active Robbie Busby MD Active ZITHROMAX 250 MG ORAL TABLET 2 po today, then 1 po q days 2-5 AZITHROMYCIN 06497675736 No Longer Active Robbie Busby MD Active DOXAZOSIN MESYLATE 4 MG ORAL TABLET Take one by mouth daily DOXAZOSIN MESYLATE 19639635054 Active Robbie Busby MD Active VENLAFAXINE HCL ER 150 MG ORAL TABLET EXTENDED RELEASE 24 HOUR Take one by mouth daily VENLAFAXINE HCL 67441155250 Active Robbie Busby MD Active LIPITOR 40 MG ORAL TABLET Take one by mouth daily ATORVASTATIN CALCIUM 42654710571 Active Robbie Busby MD Active ISOSORBIDE DINITRATE 30 MG ORAL TABLET Take one by mouth daily ISOSORBIDE DINITRATE 30 MG ORAL TABLET 106429 ISOSORBIDE DINITRATE Inactive NORVASC 10 MG ORAL TABLET 1 tablet by mouth daily NORVASC 10 MG ORAL TABLET 390235 AMLODIPINE BESYLATE Inactive AZITHROMYCIN 250 MG ORAL TABLET 2 tablets PO today---then, 1 tablet PO daily x 4 more days (and 1 optional refill) AZITHROMYCIN 250 MG ORAL TABLET 099533 AZITHROMYCIN Inactive CHERATUSSIN AC 100-10 MG/5ML ORAL SOLUTION 7.5 mL PO q 4-6 hrs PRN cough 2014 CHERATUSSIN AC 100-10 MG/5ML ORAL SOLUTION 371730 GUAIFENESIN-CODEINE Inactive VIIBRYD 40 MG ORAL TABLET take 1 tab po qday for depression. 2014 VIIBRYD 40 MG ORAL TABLET VILAZODONE HCL Inactive HYDRALAZINE HCL 25 MG ORAL TABLET 1 tablet by mouth tid for hypertension 2013 HYDRALAZINE HCL 25 MG ORAL TABLET 281694 HYDRALAZINE HCL Inactive SPIRONOLACTONE 50 MG ORAL TABLET 1 tablet by mouth twice a day SPIRONOLACTONE 50 MG ORAL TABLET 764514 SPIRONOLACTONE Inactive FENOFIBRATE 145 MG ORAL TABLET Take one by mouth daily FENOFIBRATE 145 MG ORAL TABLET 465283 FENOFIBRATE Inactive PROTONIX 40 MG INTRAVENOUS SOLUTION RECONSTITUTED 1 po qday for acid reflux PROTONIX 40 MG INTRAVENOUS SOLUTION RECONSTITUTED 889429 PANTOPRAZOLE SODIUM Inactive CEFDINIR 300 MG ORAL CAPSULE Take 1 cap po bid x 10 days CEFDINIR 300 MG ORAL CAPSULE 046236 CEFDINIR Inactive PREDNISONE 20 MG ORAL TABLET 1 tablet twice daily for 2 days, then 1 tablet once daily for 2 days PREDNISONE 20 MG ORAL TABLET 847913 PREDNISONE Inactive NYSTATIN 438671 UNIT/ML MOUTH/THROAT SUSPENSION 5mL po QID x 10 days NYSTATIN 877759 UNIT/ML MOUTH/THROAT SUSPENSION 369872 NYSTATIN Inactive BETADINE 10 % EXTERNAL SOLUTION wash with solution to treat follicultis 07/29 BETADINE 10 % EXTERNAL SOLUTION 9828091 POVIDONE-IODINE Inactive TRILEPTAL 150 MG ORAL TABLET 1 TAB PO Q HS TRILEPTAL 150 MG ORAL TABLET 666086 OXCARBAZEPINE Inactive LAMISIL 125 MG ORAL PACKET 1 TAB PO DAILY LAMISIL 125 MG ORAL PACKET TERBINAFINE HCL Inactive HYDROCHLOROTHIAZIDE TABLET Take one by mouth daily HYDROCHLOROTHIAZIDE TABLET HYDROCHLOROTHIAZIDE TABS Inactive HYDROCODONE-ACETAMINOPHEN 5-325 MG ORAL TABLET 1 tab by mouth BID prn back pain HYDROCODONE-ACETAMINOPHEN 5-325 MG ORAL TABLET 379153 HYDROCODONE-ACETAMINOPHEN Inactive HYDRALAZINE HCL 50 MG ORAL TABLET TWO BY MOUTH THREE TIMES DAILY HYDRALAZINE HCL 50 MG ORAL TABLET 264233 HYDRALAZINE HCL Inactive LEVAQUIN 500 MG ORAL TABLET 1 tablet by mouth daily for 7 days LEVAQUIN 500 MG ORAL TABLET 649770 LEVOFLOXACIN Inactive SPIRONOLACTONE 25 MG ORAL TABLET 4 tablets by mouth daily SPIRONOLACTONE 25 MG ORAL TABLET 131467 SPIRONOLACTONE Inactive MECLIZINE HCL 25 MG ORAL TABLET one 4 times a day as needed for dizziness MECLIZINE HCL 25 MG ORAL TABLET 581241 MECLIZINE HCL Inactive CLONIDINE HCL 0.2 MG ORAL TABLET 1 TAB BY MOUTH EVERY 8 HOURS CLONIDINE HCL 0.2 MG ORAL TABLET 206554 CLONIDINE HCL Inactive CYCLOBENZAPRINE HCL 10 MG ORAL TABLET 1 tablet by mouth three times daily as needed for muscle spasm/pain for 10 days CYCLOBENZAPRINE HCL 10 MG ORAL TABLET 234789 CYCLOBENZAPRINE HCL Inactive VITAMIN D3 68908 UNIT ORAL CAPSULE 2 CAPS PO WEEKLY VITAMIN D3 99819 UNIT ORAL CAPSULE CHOLECALCIFEROL Inactive FIORICET 50-300-40 MG ORAL CAPSULE take 1 tab po qday prn migraines. FIORICET 50-300-40 MG ORAL CAPSULE 444839 BUTALBITAL-APAP- CAFFEINE Inactive FLONASE 50 MCG/ACT NASAL SUSPENSION 1 spray each nostril twice daily for allergies and runny nose FLONASE 50 MCG/ACT NASAL SUSPENSION 1518734 FLUTICASONE PROPIONATE Inactive LORATADINE 10 MG ORAL TABLET 1 tablet by mouth daily for congestion and allergies. LORATADINE 10 MG ORAL TABLET 020963 LORATADINE Inactive NITROSTAT 0.4 MG SUBLINGUAL TABLET SUBLINGUAL PRN NITROSTAT 0.4 MG SUBLINGUAL TABLET SUBLINGUAL 982522 NITROGLYCERIN Inactive GUAIFENESIN ER 600 MG ORAL TABLET EXTENDED RELEASE 12 HOUR 1 tab po q am 2016 GUAIFENESIN ER 600 MG ORAL TABLET EXTENDED RELEASE 12 HOUR GUAIFENESIN Inactive CYCLOBENZAPRINE HCL 10 MG ORAL TABLET 1 po TID PRN muscle spasm/pain for 10 days CYCLOBENZAPRINE HCL 10 MG ORAL TABLET 566141 CYCLOBENZAPRINE HCL Inactive TOPIRAMATE 50 MG ORAL TABLET take 1 tab po BID for migraines. TOPIRAMATE 50 MG ORAL TABLET 439916 TOPIRAMATE Inactive PREDNISONE 20 MG ORAL TABLET two tabs by mouth today, then one tab by mouth days two and three PREDNISONE 20 MG ORAL TABLET 443544 PREDNISONE Inactive TOPROL XL 200 MG ORAL TABLET EXTENDED RELEASE 24 HOUR Take one by mouth daily TOPROL XL 200 MG ORAL TABLET EXTENDED RELEASE 24 HOUR METOPROLOL SUCCINATE Inactive CYCLOBENZAPRINE HCL 10 MG ORAL TABLET 1 tablet by mouth three times daily as needed for muscle spasm/pain CYCLOBENZAPRINE HCL 10 MG ORAL TABLET 607007 CYCLOBENZAPRINE HCL Inactive TOPIRAMATE 50 MG ORAL TABLET 1 po BID for migraines TOPIRAMATE 50 MG ORAL TABLET 214436 TOPIRAMATE Inactive TEMAZEPAM 15 MG ORAL CAPSULE 1 TAB PO Q HS TEMAZEPAM 15 MG ORAL CAPSULE 407343 TEMAZEPAM Inactive IMDUR 60 MG ORAL TABLET EXTENDED RELEASE 24 HOUR take 1 tab po qday for blood pressure IMDUR 60 MG ORAL TABLET EXTENDED RELEASE 24 HOUR ISOSORBIDE MONONITRATE Inactive [id number] 0.3 MG/24HR TRANSDERMAL PATCH WEEKLY apply 2 patches q week for HTN [id number]-4 0.3 MG/24HR TRANSDERMAL PATCH WEEKLY 552975 CLONIDINE HCL Inactive ZITHROMAX 250 MG ORAL TABLET 2 po today, then 1 po q days 2-5 ZITHROMAX 250 MG ORAL TABLET 540260 AZITHROMYCIN Inactive TERBINAFINE HCL 250 MG ORAL TABLET 1 tab po qday for foot infection TERBINAFINE HCL 250 MG ORAL TABLET 938862 TERBINAFINE HCL Inactive KEFLEX 500 MG ORAL CAPSULE 1 po TID x 10 days KEFLEX 500 MG ORAL CAPSULE 426604 CEPHALEXIN Inactive BACTRIM DS 800-160 MG ORAL TABLET 1 tab by mouth twice daily 2015 BACTRIM DS 800-160 MG ORAL TABLET 541128 TRIMETHOPRIM- SULFAMETHOXAZOLE Inactive PREDNISONE 20 MG ORAL TABLET take 3 tabs daily for 3 days, 2 tabs daily for 3 days, 1 tab daily for 3 days, 1/2 tab daily for 4 days PREDNISONE 20 MG ORAL TABLET 599372 PREDNISONE Inactive AZITHROMYCIN 250 MG ORAL TABLET 2 po qd x 1 day, then 1 po qd x 4 days 09/20 AZITHROMYCIN 250 MG ORAL TABLET 083492 AZITHROMYCIN Inactive SINGULAIR 10 MG ORAL TABLET 1 po qday for allergies. SINGULAIR 10 MG ORAL TABLET 814984 MONTELUKAST SODIUM Inactive PREDNISONE 20 MG ORAL TABLET 2 po qd x 5 days PREDNISONE 20 MG ORAL TABLET 301989 PREDNISONE Inactive Advance Directives Directive Description Start [...] AUTO - Chemistry sodium, serum 142 mmol/L 433-508 6848/07/17 carbon dioxide, venous blood 28.2 mmol/L 21.0-32.0 [...] Panel, CKI, UADIP W/MICRO, AUTO - Hematology neutrophils as percent of blood leukocytes 55.7 % 40.0-80.0 leukocyte count, blood 10.9 10^3/MM^3 10*3/mm3 4.6-10.2 hemoglobin, blood 14.7 g/dL 14.0-18.0 hematocrit, blood 43.8 % 40.0-54.0 mean corpuscular volume, RBC 91 fL 80-97 mean corpuscular hemoglobin, RBC 30.4 pg 27.0-31.2 mean corpuscular hemoglobin concentration, RBC 33.6 G/DL % 31.8- 35.4 red blood cell distribution width 13.6 % 11.6-14.8 platelet count 239 10^3/MM^3 10*3/mm3 939-019 6515/07/17 erythrocyte (RBC) count 4.83 10^6/MM^3 10*6/mm3 4.50-6.50 lymphocytes as percent of blood leukocytes 35.6 % 20.0-40.0 monocytes as percent of blood leukocytes 6.8 % 2.0-10.0 Lab Report: CBC W/DIFF, Comp. Metabolic Panel, [...] nitrite, urine, semiquantitative Negative Negative Lab Report: Comp. Metabolic Panel - Chemistry sodium, serum 141 mmol/L 690-347 0187/02/13 carbon dioxide, venous blood 23.9 mmol/L 21.0-32.0 [...] 6.9 % 4.3-6.0 sodium, serum 139 mmol/L 335-203 9389/01/04 potassium, serum 3.9 mmol/L 3.5-5.2 chloride, serum [...] 1.80 ng/mL 0.00-4.00 Lab Report: VITAMIN D, 25-HYDROXY/41499 - Chemistry vitamin D 25-hydroxy, serum 25 ng/mL 30-100 Encounters Code Encounter Date Provider Facility CPT-19275 Level 3 Est. Patient 13:59:07 CDT Renny Bella MD [facility] CPT-43475 Level 3 Est. Patient 16:04:17 CDT Robbie Busby MD [facility]-30646 Level 4 Est. Patient 09:50:01 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 Robbei Busby MD [facility] CPT-28180 Level 4 Est. Patient 09:42:08 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 Robbie Busby MD [facility]-12822 Level 4 Est. Patient 13:07:39 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 Robbie Busby MD [facility]-50881 Level 4 Est. Patient 15:23:44 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 Desmond Diaz DO [facility] CPT-07340 Level 3 Est. Patient 15:40:49 CDT Robbie Busby MD [facility]-78632 Level 4 Est. Patient 15:18:19 CDT Robbie Busby MD [facility]-26448 Level 3 Est. Patient 09:00:37 CDT Rober Rodríguez [facility]-02296 Level 3 Est. Patient 16:07:10 CDT Robbie Busby MD [facility]-44171 Level 4 Est. Patient 11:56:16 CDT Erin Mai [facility] CPT-98268 Level 3 Est. Patient 17:48:02 CDT Robbie Busby MD [facility]-00316 Level 4 Est. Patient 12:00:49 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 Rober Rodríguez [facility] CPT-76196 Level 3 Est. Patient 09:16:37 CDT Robbie Busby MD [facility]-62606 Level 3 Est. Patient 19:38:43 CDT Robbie Busby MD [facility]-09120 Level 3 Est. Patient 11:53:38 CDT Robbie Busby MD [facility] CPT-03892 Level 4 Est. Patient 12:52:22 CDT Rober Reynoldsneha ARGUELLO [facility] CPT-80674 Level 4 Est. Patient 22:55:17 CDT Robbie Busby MD [facility]-85206 Level 3 Est. Patient 12:38:24 CDT Desmond Diaz DO [facility] CPT-39016 Level 4 Est. Patient 11:25:03 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 Robbie Busby MD [facility] CPT-55074 Level 4 Est. Patient 14:50:10 CDT Robbie Busby MD [facility] CPT-00189 Level 4 Est. Patient 23:30:43 CDT Robbie Busby MD [facility] CPT-92371 Level 4 Est. Patient 10:30:43 CDT Robbie Busby MD [facility] CPT-22465 Level 3 Est. Patient 17:08:12 CDT Alex Shaw [facility] CPT-82651 Level 4 Est. Patient 17:51:38 CDT Robbie Busby MD [facility] CPT-94741 Level 4 Est. Patient 14:00:21 CDT Robbie Busby MD [facility] CPT-91174 Level 4 Est. Patient 12:46:48 CDT Robbie Busby MD [facility] CPT-80980 Level 4 Est. Patient 13:34:33 CDT Robbie Busby MD [facility] CPT-83797 Level 4 Est. Patient 16:58:28 CDT Robbie Busby MD [facility] CPT-72952 Level 3 Est. Patient 19:36:53 CDT Alex Shaw [facility] CPT-33555 Level 3 Est. Patient 12:58:15 CDT Robbie Busby MD [facility] Procedures Code Procedure Name Date Entry Date Standard Description CPT-J1071 Depo Testosterone 200mg 09:01:06 CDT CPT-37385 Abx/Therapy Injection 09:01:06 CDT CPT-J1100 Decadron 8mg (Dexamethasone) 16:04:17 CDT CPT-J1040 Depo Medrol 80 mg (Methyl Prednisolone Acetate) 16:04: 17 CDT CPT-J1071 Depo Testosterone 200mg 08:56:46 CDT CPT-81719 Abx/Therapy Injection 08:56:45 CDT CPT-J1071 Depo Testosterone 200mg 08:26:27 CDT CPT-79846 Abx/Therapy Injection 08:26:27 CDT CPT-J1071 Depo Testosterone 200mg 10:27:10 CDT CPT-71433 Abx/Therapy Injection 10:27:10 CDT CPT-J1071 Depo Testosterone 200mg 16:10:29 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 CPT-15059 Abx/Therapy Injection 16:10:29 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 CPT-J1071 Depo Testosterone 200mg 16:13:47 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 CPT-45586 Abx/Therapy Injection 16:13:46 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 CPT-J1071 Depo Testosterone 200mg 15:33:58 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 CPT-99635 Abx/Therapy Injection 15:33:58 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 CPT-J1071 Depo Testosterone 200mg 09:38:36 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 CPT-63278 Abx/Therapy Injection 09:38:36 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 CPT-J1071 Depo Testosterone 200mg 10:22:56 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 CPT-45564 Abx/Therapy Injection 10:22:56 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 CPT-J1071 Depo Testosterone 200mg 15:40:23 CDT CPT-84341 Abx/Therapy Injection 15:40:23 CDT CPT-J1071 Depo Testosterone 200mg 14:20:43 CDT CPT-62359 Abx/Therapy Injection 14:20:43 CDT CPT-J1071 Depo Testosterone 200mg 14:17:22 CDT CPT-85945 Abx/Therapy Injection 14:17:22 CDT CPT-J1071 Depo Testosterone 200mg 09:03:53 CDT CPT-03480 Abx/Therapy Injection 09:03:53 CDT CPT-G0439 [facility] Annual Wellness Exam 16:47:44 CDT CPT-J1071 Depo Testosterone 200mg 09:06:28 CDT CPT-96167 Abx/Therapy Injection 09:06:28 CDT CPT-J1071 Depo Testosterone 200mg 08:30:01 CDT CPT-32951 Abx/Therapy Injection 08:30:01 CDT CPT-J1071 Depo Testosterone 200mg 08:24:00 CDT CPT-85357 Abx/Therapy Injection 08:24:00 CDT CPT-76770 Venipuncture Draw Fee 14:39:06 CDT CPT-39907 Ribs unilateral 2V - XRAY USE ONLY 12:10:11 CDT CPT-32584 First Vx - Ix admin for Medicare patients 16:32:53 CDT CPT-84258 Boostrix Intramuscular Suspension 5-2.5-18.5 16:32:53 CDT CPT-34308 TB Skin Test 11:42:28 CDT CPT-90376 Tdap 7yrs or > 11:42:28 CDT CPT-J0696 Rocephin 1000 mg (Ceftriaxone) 17:43:43 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 CPT-J1040 Depo Medrol 80 mg (Methyl Prednisolone Acetate) 17:43: 43 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 CPT-J1100 Decadron 8mg (Dexamethasone) 17:43:42 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 CPT-30270 Abx/Therapy Injection 17:43:42 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 CPT-96458 Abx/Therapy Injection 17:43:42 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 CPT-J1040 Depo Medrol 80 mg (Methyl Prednisolone Acetate) 09:43: 34 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 CPT-J1100 Decadron 8mg (Dexamethasone) 09:43:34 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 CPT-J0696 Rocephin 1gm Inj Solr 09:43:34 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 CPT-93979 Wound Culture - LAB USE ONLY 14:00:21 CDT CPT-I/D I/D Abscess 09:16:37 CDT CPT-38614 Venipuncture Draw Fee 15:20:23 CDT CPT-08129 Microalbumin - LAB USE ONLY 16:02:19 CDT CPT-39444 CBC - LAB USE ONLY 16:02:19 CDT CPT-62446 Venipuncture Draw Fee 16:02:19 CDT CPT-G0438 Initial Annual Wellness Exam 08:10:28 CDT CPT-96197 Venipuncture Draw Fee 13:07:17 CDT CPT-G0008 Administration of Influenza Virus Vaccine 16:09:59 CDT CPT-22727 Fluzone Quadrivalent Intramuscular Suspension 0.5 ML 16: 09:59 CDT CPT-37790 Spec Collection and Handling Fee 15:05:50 CDT
--- OUTSIDE RECORDS SUMMARY | 2018-04-18 13:30 | XMS REPORT | Clinical Summary ---
Author Author Admin, E Organization [facility] Address Unknown Phone Unavailable [...] muscle spasm/pain for 10 days CYCLOBENZAPRINE HCL 22795922254 Active Erin Garsia APRN Active PREDNISONE 20 MG TAB take 3 tabs daily for 3 days, 2 tabs daily for 3 days, 1 tab daily for 3 days, 1/2 tab daily for 4 days PREDNISONE 19459944276 No Longer Active Erin Garsia APRN Active CLONIDINE HCL 0.2 MG ORAL TABS 1 TAB BY MOUTH EVERY 8 HOURS 12/29 CLONIDINE HCL 57106464431 No Longer Active Erin Garsia APRN Active MECLIZINE HCL 25 MG TAB one 4 times a day as needed for dizziness MECLIZINE HCL 22417665220 No Longer Active Erin Garsia APRN Active SPIRONOLACTONE 25 MG TAB 4 tablets by mouth daily SPIRONOLACTONE 25771830466 No Longer Active Erin Garsia APRN Active LEVAQUIN 500 MG TAB 1 tablet by mouth daily for 7 days LEVOFLOXACIN 96951752680 No Longer Active Erin Garsia APRN Active BACTRIM DS 800-160 MG TAB 1 tab by mouth twice daily TRIMETHOPRIM-SULFAMETHOXAZOLE 68642102753 No Longer Active Robbie Busby MD Active HYDRALAZINE HCL 50 MG ORAL TABS TWO BY MOUTH THREE TIMES DAILY HYDRALAZINE HCL 64137567098 No Longer Active Jillina Frazell 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 HYDROCODONE-ACETAMINOPHEN 5-325 MG TABS 1 tab by mouth BID prn back pain 2013 HYDROCODONE-ACETAMINOPHEN 78838975667 No Longer Active Jillina Frazell 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 HYDROCHLOROTHIAZIDE TABS Take one by mouth daily HYDROCHLOROTHIAZIDE TABS 71938125744 No Longer Active Jillina Frazell 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 LAMISIL 125 MG ORAL PACK 1 TAB PO DAILY TERBINAFINE HCL 37336632583 No Longer Active Jillina Frazell 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 TRILEPTAL 150 MG ORAL TABS 1 TAB PO Q HS OXCARBAZEPINE 23087508382 No Longer Active Jillina Frazell 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 BETADINE 10 % EXT SOLN wash with solution to treat follicultis POVIDONE-IODINE 49816546737 No Longer Active 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 Frazell 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 NYSTATIN 456417 UNIT/ML M/T SUSP 5mL po QID x 10 days NYSTATIN 11850258342 No Longer Active Erin Garsia APRN Active PREDNISONE 20 MG TAB 1 tablet twice daily for 2 days, then 1 tablet once daily for 2 days PREDNISONE 38134109176 No Longer Active Robbie Busby MD Active CEFDINIR 300 MG ORAL CAPS Take 1 cap po bid x 10 days CEFDINIR 53970245507 No Longer Active Robbie Busby MD Active AMLODIPINE BESYLATE 10 MG TABS 1 tablet by mouth daily AMLODIPINE BESYLATE 54345003853 Active Robbie Busby MD Active CARVEDILOL 25 MG TABS 1 & 1/2 TAB po BID CARVEDILOL 51592161962 Active Robbie Busby MD Active VITAMIN D3 30223 UNIT CAPS 2 CAPS PO WEEKLY CHOLECALCIFEROL 58306500101 Active Erin Garsia APRN Active NEXIUM 40 MG CPDR 1 cap by mouth daily ESOMEPRAZOLE MAGNESIUM 18200484364 Active Robbie Busby MD Active PROTONIX 40 MG SOLR 1 po qday for acid reflux PANTOPRAZOLE SODIUM 81019332898 No Longer Active Gali Raida Active KEFLEX 500 MG CAP 1 po TID x 10 days CEPHALEXIN 86293953546 No Longer Active Robbie Busby MD Active FIORICET 50-300-40 MG ORAL CAPS take 1 tab po qday prn migraines. [id number] 84726317885 Active Robbie Busby MD Active TOPIRAMATE 50 MG ORAL TABS take 1 tab po BID for migraines. TOPIRAMATE 80197454997 Active Robbie Busby MD Active TEMAZEPAM 15 MG ORAL CAPS 1 TAB PO Q HS TEMAZEPAM 47151333738 Active Robbie Busby MD Active ALPRAZOLAM 2 MG ORAL TABS 1 TAB PO BID ALPRAZOLAM 34479175511 Active Robbie Busby MD Active FENOFIBRATE 145 MG TABS Take one by mouth daily FENOFIBRATE 22710005212 No Longer Active Robbie Busby MD Active SPIRONOLACTONE 50 MG TABS 1 tablet by mouth twice a day SPIRONOLACTONE 64765710754 No Longer Active Robbie Busby MD Active HYDRALAZINE HCL 25 MG TABS 1 tablet by mouth tid for hypertension HYDRALAZINE HCL 59013244121 No Longer Active Robbie Busby MD Active VIIBRYD 40 MG TABS take 1 tab po qday for depression. VILAZODONE HCL 95782857101 No Longer Active Robbie Busby MD Active TERBINAFINE HCL 250 MG TABS 1 tab po qday for foot infection 2014 TERBINAFINE HCL 53559513413 No Longer Active Robbie Busby MD Active GABAPENTIN 300 MG CAPS 1 po q hs for nerve pain GABAPENTIN 04311293541 Active Robbie Busby MD Active FLONASE 50 MCG/ACT SUSP 1 spray each nostril twice daily for allergies and runny nose FLUTICASONE PROPIONATE 49008011481 Active Robbie Busby MD Active CHERATUSSIN AC 100-10 MG/5ML ORAL SOLN 7.5 mL PO q 4-6 hrs PRN cough GUAIFENESIN-CODEINE 45492194081 No Longer Active Robbie Busby MD Active AZITHROMYCIN 250 MG ORAL TABS 2 tablets PO today---then, 1 tablet PO daily x 4 more days (and 1 optional refill) AZITHROMYCIN 48675754804 No Longer Active Robbie Busby MD Active NORVASC 10 MG TAB 1 tablet by mouth daily AMLODIPINE BESYLATE 83112249622 No Longer Active Alex ALVAREZ Active IMDUR 60 MG TAB CR take 1 tab po qday for blood pressure ISOSORBIDE MONONITRATE Active Robbie Busby MD Active ISOSORBIDE DINITRATE 30 MG TABS Take one by mouth daily ISOSORBIDE DINITRATE 15942245172 No Longer Active Robbie Busby MD Active VIIBRYD 40 MG TABS 1 TA B PO DAILY VILAZODONE HCL 77975239524 Active Robbie Busby MD Active LORATADINE 10 MG TABS 1 tablet by mouth daily for congestion and allergies. LORATADINE 62912506321 Active Robbie Busby MD Active ZITHROMAX 250 MG TAB 2 po today, then 1 po q days 2-5 AZITHROMYCIN 85644772792 No Longer Active Robbie Busby MD Active GYANQHZV-OAC-1 0.3 MG/24HR PTWK apply 2 patches q week for HTN CLONIDINE HCL 42400542162 Active Robbie Busby MD Active NITROSTAT 0.4 MG SUBL PRN NITROGLYCERIN 40256756764 Active Robbie Busby MD Active DOXAZOSIN MESYLATE 4 MG TABS Take one by mouth daily DOXAZOSIN MESYLATE 59383454084 Active Robbie Busby MD Active TOPROL XL 200 MG [id number]-[id number] Take one by mouth daily METOPROLOL SUCCINATE 63176344144 Active Robbie Busby MD Active VENLAFAXINE HCL ER 150 MG [id number] Take one by mouth daily VENLAFAXINE HCL 30057375304 Active Robbie Busby MD Active LIPITOR 40 MG TABS Take one by mouth daily ATORVASTATIN CALCIUM 30576322425 Active Robbie Busby MD Active ISOSORBIDE DINITRATE 30 MG TABS Take one by mouth daily ISOSORBIDE DINITRATE 30 MG TABS 629004 ISOSORBIDE DINITRATE Inactive NORVASC 10 MG TAB 1 tablet by mouth daily NORVASC 10 MG TAB 153416 AMLODIPINE BESYLATE Inactive AZITHROMYCIN 250 MG ORAL TABS 2 tablets PO today---then, 1 tablet PO daily x 4 more days (and 1 optional refill) AZITHROMYCIN 250 MG ORAL TABS 4099964 AZITHROMYCIN Inactive CHERATUSSIN AC 100-10 MG/5ML ORAL SOLN 7.5 mL PO q 4-6 hrs PRN cough CHERATUSSIN AC 100-10 MG/5ML ORAL SOLN 899390 GUAIFENESIN- CODEINE Inactive VIIBRYD 40 MG TABS take 1 tab po qday for depression. VIIBRYD 40 MG TABS VILAZODONE HCL Inactive HYDRALAZINE HCL 25 MG TABS 1 tablet by mouth tid for hypertension HYDRALAZINE HCL 25 MG TABS 683214 HYDRALAZINE HCL Inactive SPIRONOLACTONE 50 MG TABS 1 tablet by mouth twice a day SPIRONOLACTONE 50 MG TABS 869651 SPIRONOLACTONE Inactive FENOFIBRATE 145 MG TABS Take one by mouth daily FENOFIBRATE 145 MG TABS 996687 FENOFIBRATE Inactive PROTONIX 40 MG SOLR 1 po qday for acid reflux PROTONIX 40 MG SOLR 337385 PANTOPRAZOLE SODIUM Inactive CEFDINIR 300 MG ORAL CAPS Take 1 cap po bid x 10 days CEFDINIR 300 MG ORAL CAPS 228174 CEFDINIR Inactive PREDNISONE 20 MG TAB 1 tablet twice daily for 2 days, then 1 tablet once daily for 2 days PREDNISONE 20 MG TAB 805201 PREDNISONE Inactive NYSTATIN 712352 UNIT/ML M/T SUSP 5mL po QID x 10 days NYSTATIN 934917 UNIT/ML M/T SUSP 237515 NYSTATIN Inactive BETADINE 10 % EXT SOLN wash with solution to treat follicultis BETADINE 10 % EXT SOLN 8046534 POVIDONE-IODINE Inactive TRILEPTAL 150 MG ORAL TABS 1 TAB PO Q HS TRILEPTAL 150 MG ORAL TABS 657441 OXCARBAZEPINE Inactive LAMISIL 125 MG ORAL PACK 1 TAB PO DAILY LAMISIL 125 MG ORAL PACK TERBINAFINE HCL Inactive HYDROCHLOROTHIAZIDE TABS Take one by mouth daily HYDROCHLOROTHIAZIDE TABS HYDROCHLOROTHIAZIDE TABS Inactive HYDROCODONE-ACETAMINOPHEN 5-325 MG TABS 1 tab by mouth BID prn back pain 2013 HYDROCODONE-ACETAMINOPHEN 5-325 MG TABS 006858 HYDROCODONE -ACETAMINOPHEN Inactive HYDRALAZINE HCL 50 MG ORAL TABS TWO BY MOUTH THREE TIMES DAILY HYDRALAZINE HCL 50 MG ORAL TABS 800274 HYDRALAZINE HCL Inactive LEVAQUIN 500 MG TAB 1 tablet by mouth daily for 7 days LEVAQUIN 500 MG TAB 749092 LEVOFLOXACIN Inactive SPIRONOLACTONE 25 MG TAB 4 tablets by mouth daily SPIRONOLACTONE 25 MG TAB 376163 SPIRONOLACTONE Inactive MECLIZINE HCL 25 MG TAB one 4 times a day as needed for dizziness MECLIZINE HCL 25 MG TAB 389419 MECLIZINE HCL Inactive CLONIDINE HCL 0.2 MG ORAL TABS 1 TAB BY MOUTH EVERY 8 HOURS 12/29 CLONIDINE HCL 0.2 MG ORAL TABS 067331 CLONIDINE HCL Inactive ZITHROMAX 250 MG TAB 2 po today, then 1 po q days 2-5 ZITHROMAX 250 MG TAB 5519513 AZITHROMYCIN Inactive TERBINAFINE HCL 250 MG TABS 1 tab po qday for foot infection 2014 TERBINAFINE HCL 250 MG TABS 923642 TERBINAFINE HCL Inactive KEFLEX 500 MG CAP 1 po TID x 10 days KEFLEX 500 MG CAP 723674 CEPHALEXIN Inactive BACTRIM DS 800-160 MG TAB 1 tab by mouth twice daily BACTRIM DS 800-160 MG TAB 180841 TRIMETHOPRIM-SULFAMETHOXAZOLE Inactive PREDNISONE 20 MG TAB take 3 tabs daily for 3 days, 2 tabs daily for 3 days, 1 tab daily for 3 days, 1/2 tab daily for 4 days PREDNISONE 20 MG TAB 906050 PREDNISONE Inactive Advance Directives Directive Description Start [...] % 11.0-15.0 platelet count 185 THOUSAND/UL 10*3/mm3 307-326 2328/04/14 mean platelet volume 10.9 fL 7.5-12.5 mean corpuscular volume, RBC 90.5 fL 80.0-100.0 hematocrit, blood 42.0 % 38.5-50.0 hemoglobin, blood 13.9 g/dL 13.2-17.1 erythrocyte (RBC) count 4.64 MILLION/UL 10*6/mm3 4.20-5.80 leukocyte count, blood 10.1 THOUSAND/UL 10*3/mm3 3.8-10.8 Lab Report: LIPID PANEL, TSH/899, T4, FREE/866 - Chemistry cholesterol, serum 220 mg/dL 194-389 6796/04/14 HDL cholesterol, serum 30 mg/dL > OR=40 [...] mg/dL Encounters Code Encounter Date Provider Facility CPT-85612 Level 4 Est. Patient 11:56:16 CDT Erin Garsia [facility] CPT-34388 Level 3 Est. Patient 17:48:02 CDT Robbie Busby MD [facility] CPT-90700 Level 4 Est. Patient 12:00:49 PATENT LAW SPECIALIST Rober Rodríguez [facility] CPT-98590 Level 3 Est. Patient 09:16:37 CDT Robbie Busby MD [facility] CPT-77735 Level 3 Est. Patient 19:38:43 CDT Robbie Busby MD [facility] CPT-33427 Level 3 Est. Patient 11:53:38 CDT Robbie Busby MD [facility] CPT-39562 Level 4 Est. Patient 12:52:22 CDT Rober Rodríguez [facility] CPT-13010 Level 4 Est. Patient 22:55:17 CDT Robbie Busby MD [facility] CPT-91051 Level 3 Est. Patient 12:38:24 CDT Desmond Diaz DO [facility] CPT-33588 Level 4 Est. Patient 11:25:03 PATENT LAW SPECIALIST Robbie Busby MD [facility] CPT-67878 Level 4 Est. Patient 14:50:10 CDT Robbie Busby MD [facility] CPT-10893 Level 4 Est. Patient 23:30:43 CDT Robbie Busby MD [facility] CPT-26706 Level 4 Est. Patient 10:30:43 CDT Robbie Busby MD [facility] CPT-70204 Level 3 Est. Patient 17:08:12 CDT Alex Shaw [facility] CPT-38760 Level 4 Est. Patient 17:51:38 CDT Robbie Busby MD [facility] CPT-56718 Level 4 Est. Patient 14:00:21 CDT Robbie Busby MD [facility] CPT-07957 Level 4 Est. Patient 12:46:48 CDT Robbie Busby MD [facility] CPT-68086 Level 4 Est. Patient 13:34:33 CDT Robbie Busby MD [facility] CPT-15231 Level 4 Est. Patient 16:58:28 CDT Robbie Busby MD [facility] CPT-83257 Level 3 Est. Patient 19:36:53 CDT Alex Shaw [facility] CPT-66758 Level 3 Est. Patient 12:58:15 CDT Robbie Busby MD [facility] Procedures Code Procedure Name Date Entry Date Standard Description CPT-90284 Ribs unilateral 2V - XRAY USE ONLY 12:10:11 CDT CPT-15292 First Vx - Ix admin for Medicare patients 16:32:53 CDT CPT-49428 Boostrix Intramuscular Suspension 5-2.5-18.5 16:32:53 CDT CPT-26028 TB Skin Test 11:42:28 CDT CPT-34681 Tdap 7yrs or > 11:42:28 CDT CPT-J0696 Rocephin 1000 mg (Ceftriaxone) 17:43:43 PATENT LAW SPECIALIST CPT-J1040 Depo Medrol 80 mg (Methyl Prednisolone Acetate) 17:43: 43 PATENT LAW SPECIALIST CPT-J1100 Decadron 8mg (Dexamethasone) 17:43:42 PATENT LAW SPECIALIST CPT-99856 Abx/Therapy Injection 17:43:42 PATENT LAW SPECIALIST CPT-31042 Abx/Therapy Injection 17:43:42 PATENT LAW SPECIALIST CPT-J1040 Depo Medrol 80 mg (Methyl Prednisolone Acetate) 09:43: 34 PATENT LAW SPECIALIST CPT-J1100 Decadron 8mg (Dexamethasone) 09:43:34 PATENT LAW SPECIALIST CPT-J0696 Rocephin 1gm Inj Solr 09:43:34 PATENT LAW SPECIALIST CPT-76065 Wound Culture - LAB USE ONLY 14:00:21 CDT CPT-I/D I/D Abscess 09:16:37 CDT CPT-25566 Venipuncture Draw Fee 15:20:23 CDT CPT-78679 Microalbumin - LAB USE ONLY 16:02:19 CDT CPT-35450 CBC - LAB USE ONLY 16:02:19 CDT CPT-99592 Venipuncture Draw Fee 16:02:19 CDT CPT-G0438 Initial Annual Wellness Exam 08:10:28 CDT CPT-28009 Venipuncture Draw Fee 13:07:17 CDT CPT-G0008 Administration of Influenza Virus Vaccine 16:09:59 CDT CPT-63971 Fluzone Quadrivalent Intramuscular Suspension 0.5 ML 16: 09:59 CDT CPT-96994 Spec Collection and Handling Fee 15:05:50 CDT
--- OUTSIDE RECORDS SUMMARY | 2018-04-18 13:31 | XMS REPORT | Clinical Summary ---
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 Rober Rodríguez [employer] Other malignant secondary hypertension Tachycardia 785.0 Active [...] by mouth daily for 7 days LEVOFLOXACIN 29884402139 Active Erin Garsia APRN Active BACTRIM DS 800-160 MG TAB 1 tab by mouth twice daily TRIMETHOPRIM-SULFAMETHOXAZOLE 85630048923 No Longer Active Robbie Busby MD Active SPIRONOLACTONE 25 MG TAB 4 tablets by mouth daily SPIRONOLACTONE 78796615043 Active Robbie Busby MD Active HYDRALAZINE HCL 50 MG ORAL TABS TWO BY MOUTH THREE TIMES DAILY HYDRALAZINE HCL 93955666981 No Longer Active Andrellina Zulemal [employer] Active HYDROCODONE-ACETAMINOPHEN 5-325 MG TABS 1 tab by mouth BID prn back pain 2013 HYDROCODONE-ACETAMINOPHEN 30831154673 No Longer Active Jillina Frazell [employer] Active HYDROCHLOROTHIAZIDE TABS Take one by mouth daily HYDROCHLOROTHIAZIDE TABS 00280238510 No Longer Active Jillina Frazell [employer] Active LAMISIL 125 MG ORAL PACK 1 TAB PO DAILY TERBINAFINE HCL 46717370077 No Longer Active Jillina Frazell [employer] Active TRILEPTAL 150 MG ORAL TABS 1 TAB PO Q HS OXCARBAZEPINE 57568381875 No Longer Active Jillina Frazell [employer] Active BETADINE 10 % EXT SOLN wash with solution to treat follicultis POVIDONE-IODINE 85622087743 No Longer Active Jillina Frazell [employer] Active NYSTATIN 464691 UNIT/ML M/T SUSP 5mL po QID x 10 days NYSTATIN 59511391715 No Longer Active Erin Garsia APRN Active PREDNISONE 20 MG TAB 1 tablet twice daily for 2 days, then 1 tablet once daily for 2 days PREDNISONE 86684914135 No Longer Active Robbie Busby MD Active CEFDINIR 300 MG ORAL CAPS Take 1 cap po bid x 10 days CEFDINIR 25060021251 No Longer Active Robbie Busby MD Active AMLODIPINE BESYLATE 10 MG TABS 1 tablet by mouth daily AMLODIPINE BESYLATE 50956119864 Active Robbie Busby MD Active CARVEDILOL 25 MG TABS 1 & 1/2 TAB po BID CARVEDILOL 48536837986 Active Erin Garsia APRN Active VITAMIN D3 48587 UNIT CAPS 2 CAPS PO WEEKLY CHOLECALCIFEROL 81665101716 Active Erin Garsia APRN Active NEXIUM 40 MG CPDR 1 cap by mouth daily ESOMEPRAZOLE MAGNESIUM 38629125186 Active Robbie Busby MD Active PROTONIX 40 MG SOLR 1 po qday for acid reflux PANTOPRAZOLE SODIUM 29458249854 No Longer Active Gali Raida Active KEFLEX 500 MG CAP 1 po TID x 10 days CEPHALEXIN 90581905827 No Longer Active Robbie Busby MD Active FIORICET 50-300-40 MG ORAL CAPS take 1 tab po qday prn migraines. [id number] 50174736838 Active Robbie Busby MD Active TOPIRAMATE 50 MG ORAL TABS take 1 tab po BID for migraines. TOPIRAMATE 70811905319 Active Robbie Busby MD Active MECLIZINE HCL 25 MG TAB one 4 times a day as needed for dizziness MECLIZINE HCL 18611570975 Active Robbie Busby MD Active TEMAZEPAM 15 MG ORAL CAPS 1 TAB PO Q HS TEMAZEPAM 62099374716 Active Robbie Busby MD Active ALPRAZOLAM 2 MG ORAL TABS 1 TAB PO BID ALPRAZOLAM 75976071179 Active Robbie Busby MD Active FENOFIBRATE 145 MG TABS Take one by mouth daily FENOFIBRATE 43901578121 No Longer Active Robbie Busby MD Active SPIRONOLACTONE 50 MG TABS 1 tablet by mouth twice a day SPIRONOLACTONE 36084396519 No Longer Active Robbie Busby MD Active HYDRALAZINE HCL 25 MG TABS 1 tablet by mouth tid for hypertension HYDRALAZINE HCL 19431579270 No Longer Active Robbie Busby MD Active VIIBRYD 40 MG TABS take 1 tab po qday for depression. VILAZODONE HCL 99262381906 No Longer Active Robbie Busby MD Active TERBINAFINE HCL 250 MG TABS 1 tab po qday for foot infection 2014 TERBINAFINE HCL 19346522206 No Longer Active Robbie Busby MD Active GABAPENTIN 300 MG CAPS 1 po q hs for nerve pain GABAPENTIN 99944789744 Active Robbie Busby MD Active FLONASE 50 MCG/ACT SUSP 1 spray each nostril twice daily for allergies and runny nose FLUTICASONE PROPIONATE 46822311892 Active Robbie Busby MD Active CHERATUSSIN AC 100-10 MG/5ML ORAL SOLN 7.5 mL PO q 4-6 hrs PRN cough GUAIFENESIN-CODEINE 03438793964 No Longer Active Robbie Busby MD Active AZITHROMYCIN 250 MG ORAL TABS 2 tablets PO today---then, 1 tablet PO daily x 4 more days (and 1 optional refill) AZITHROMYCIN 07175130411 No Longer Active Robbie Busby MD Active CLONIDINE HCL 0.2 MG ORAL TABS 1 TAB BY MOUTH EVERY 8 HOURS CLONIDINE HCL 41722241452 Active Erin Garsia APRN Active NORVASC 10 MG TAB 1 tablet by mouth daily AMLODIPINE BESYLATE 32522718922 No Longer Active Alex ALVAREZ Active IMDUR 60 MG TAB CR take 1 tab po qday for blood pressure ISOSORBIDE MONONITRATE Active Robbie Busby MD Active ISOSORBIDE DINITRATE 30 MG TABS Take one by mouth daily ISOSORBIDE DINITRATE 74357326638 No Longer Active Robbie Busby MD Active VIIBRYD 40 MG TABS 1 TA B PO DAILY VILAZODONE HCL 84144918222 Active Robbie Busby MD Active LORATADINE 10 MG TABS 1 tablet by mouth daily for congestion and allergies. LORATADINE 44825671788 Active Robbie Busby MD Active ZITHROMAX 250 MG TAB 2 po today, then 1 po q days 2-5 AZITHROMYCIN 63185173057 No Longer Active Robbie Busby MD Active [id number] 0.3 MG/24HR PTWK apply 2 patches q week for HTN CLONIDINE HCL 26763543728 Active Robbie Busby MD Active NITROSTAT 0.4 MG SUBL PRN NITROGLYCERIN 08032313377 Active Robbie Busby MD Active DOXAZOSIN MESYLATE 4 MG TABS Take one by mouth daily DOXAZOSIN MESYLATE 04852736329 Active Erin Garsia APRN Active TOPROL XL 200 MG [id number] Take one by mouth daily METOPROLOL SUCCINATE 68437344383 Active Robbie Busby MD Active VENLAFAXINE HCL ER 150 MG [id number] Take one by mouth daily VENLAFAXINE HCL 46548370320 Active Robbie Busby MD Active LIPITOR 40 MG TABS Take one by mouth daily ATORVASTATIN CALCIUM 75692821689 Active Robbie Busby MD Active ISOSORBIDE DINITRATE 30 MG TABS Take one by mouth daily ISOSORBIDE DINITRATE 30 MG TABS 528564 ISOSORBIDE DINITRATE Inactive NORVASC 10 MG TAB 1 tablet by mouth daily NORVASC 10 MG TAB 493742 AMLODIPINE BESYLATE Inactive AZITHROMYCIN 250 MG ORAL TABS 2 tablets PO today---then, 1 tablet PO daily x 4 more days (and 1 optional refill) AZITHROMYCIN 250 MG ORAL TABS 8402599 AZITHROMYCIN Inactive CHERATUSSIN AC 100-10 MG/5ML ORAL SOLN 7.5 mL PO q 4-6 hrs PRN cough CHERATUSSIN AC 100-10 MG/5ML ORAL SOLN 038413 GUAIFENESIN- CODEINE Inactive VIIBRYD 40 MG TABS take 1 tab po qday for depression. VIIBRYD 40 MG TABS VILAZODONE HCL Inactive HYDRALAZINE HCL 25 MG TABS 1 tablet by mouth tid for hypertension HYDRALAZINE HCL 25 MG TABS 676808 HYDRALAZINE HCL Inactive SPIRONOLACTONE 50 MG TABS 1 tablet by mouth twice a day SPIRONOLACTONE 50 MG TABS 731903 SPIRONOLACTONE Inactive FENOFIBRATE 145 MG TABS Take one by mouth daily FENOFIBRATE 145 MG TABS 337596 FENOFIBRATE Inactive PROTONIX 40 MG SOLR 1 po qday for acid reflux PROTONIX 40 MG SOLR 677483 PANTOPRAZOLE SODIUM Inactive CEFDINIR 300 MG ORAL CAPS Take 1 cap po bid x 10 days CEFDINIR 300 MG ORAL CAPS 725863 CEFDINIR Inactive PREDNISONE 20 MG TAB 1 tablet twice daily for 2 days, then 1 tablet once daily for 2 days PREDNISONE 20 MG TAB 267674 PREDNISONE Inactive NYSTATIN 524339 UNIT/ML M/T SUSP 5mL po QID x 10 days NYSTATIN 652981 UNIT/ML M/T SUSP 505691 NYSTATIN Inactive BETADINE 10 % EXT SOLN wash with solution to treat follicultis BETADINE 10 % EXT SOLN 9619379 POVIDONE-IODINE Inactive TRILEPTAL 150 MG ORAL TABS 1 TAB PO Q HS TRILEPTAL 150 MG ORAL TABS 269248 OXCARBAZEPINE Inactive LAMISIL 125 MG ORAL PACK 1 TAB PO DAILY LAMISIL 125 MG ORAL PACK TERBINAFINE HCL Inactive HYDROCHLOROTHIAZIDE TABS Take one by mouth daily HYDROCHLOROTHIAZIDE TABS HYDROCHLOROTHIAZIDE TABS Inactive HYDROCODONE-ACETAMINOPHEN 5-325 MG TABS 1 tab by mouth BID prn back pain 2013 HYDROCODONE-ACETAMINOPHEN 5-325 MG TABS 605524 HYDROCODONE -ACETAMINOPHEN Inactive HYDRALAZINE HCL 50 MG ORAL TABS TWO BY MOUTH THREE TIMES DAILY HYDRALAZINE HCL 50 MG ORAL TABS 809646 HYDRALAZINE HCL Inactive ZITHROMAX 250 MG TAB 2 po today, then 1 po q days 2-5 ZITHROMAX 250 MG TAB 7002948 AZITHROMYCIN Inactive TERBINAFINE HCL 250 MG TABS 1 tab po qday for foot infection 2014 TERBINAFINE HCL 250 MG TABS 302034 TERBINAFINE HCL Inactive KEFLEX 500 MG CAP 1 po TID x 10 days KEFLEX 500 MG CAP 412665 CEPHALEXIN Inactive BACTRIM DS 800-160 MG TAB 1 tab by mouth twice daily BACTRIM DS 800-160 MG TAB 640049 TRIMETHOPRIM-SULFAMETHOXAZOLE Inactive Advance Directives Directive Description Start [...] Acid - Chemistry sodium, serum 139 mmol/L 824-335 0439/04/22 carbon dioxide, venous blood 29.4 mmol/L 21.0-32.0 [...] urine 80 0-19 Lab Report: VITAMIN D, 25-HYDROXY/61450 - Chemistry vitamin D 25-hydroxy, serum 23 ng/mL 30-100 Encounters Code Encounter Date Provider Facility CPT-90325 Level 4 Est. Patient 12:00:49 [employer] Rober Rodríguez [facility] CPT-39071 Level 3 Est. Patient 09:16:37 CDT Robbie Busby MD [facility] CPT-03703 Level 3 Est. Patient 19:38:43 CDT Robbie Busby MD [facility] CPT-09672 Level 3 Est. Patient 11:53:38 CDT Robbie Busby MD [facility] CPT-44961 Level 4 Est. Patient 12:52:22 CDT Rober Rodríguez [facility] CPT-38168 Level 4 Est. Patient 22:55:17 CDT Robbie Busby MD [facility] CPT-67357 Level 3 Est. Patient 12:38:24 CDT Desmond Diaz DO [facility] CPT-84570 Level 4 Est. Patient 11:25:03 [employer] Robbie Busby MD [facility] CPT-20256 Level 4 Est. Patient 14:50:10 CDT Robbie Busby MD [facility] CPT-75793 Level 4 Est. Patient 23:30:43 CDT Robbie Busby MD [facility] CPT-27200 Level 4 Est. Patient 10:30:43 CDT Robbie Busby MD [facility] CPT-15712 Level 3 Est. Patient 17:08:12 CDT Alex ALVAREZ [facility] CPT-38738 Level 4 Est. Patient 17:51:38 CDT Robbie Busby MD [facility] CPT-97824 Level 4 Est. Patient 14:00:21 CDT Robbie Busby MD [facility] CPT-10778 Level 4 Est. Patient 12:46:48 CDT Robbie Busby MD [facility] CPT-41933 Level 4 Est. Patient 13:34:33 CDT Robbie Busby MD [facility] CPT-87865 Level 4 Est. Patient 16:58:28 CDT Robbie Busby MD [facility] CPT-16989 Level 3 Est. Patient 19:36:53 CDT Alex ALVAREZ [facility] CPT-06460 Level 3 Est. Patient 12:58:15 CDT Robbie Busby MD [facility] Procedures Code Procedure Name Date Entry Date Standard Description CPT-J0696 Rocephin 1000 mg (Ceftriaxone) 17:43:43 [employer] CPT-J1040 Depo Medrol 80 mg (Methyl Prednisolone Acetate) 17:43: 43 [employer] CPT-J1100 Decadron 8mg (Dexamethasone) 17:43:42 [employer] CPT-09218 Abx/Therapy Injection 17:43:42 [employer] CPT-44954 Abx/Therapy Injection 17:43:42 [employer] CPT-J1040 Depo Medrol 80 mg (Methyl Prednisolone Acetate) 09:43: 34 [employer] CPT-J1100 Decadron 8mg (Dexamethasone) 09:43:34 [employer] CPT-J0696 Rocephin 1gm Inj Solr 09:43:34 [employer] CPT-32216 Wound Culture - LAB USE ONLY 14:00:21 CDT CPT-I/D I/D Abscess 09:16:37 CDT CPT-49036 Venipuncture Draw Fee 15:20:23 CDT CPT-06486 Microalbumin - LAB USE ONLY 16:02:19 CDT CPT-09896 CBC - LAB USE ONLY 16:02:19 CDT CPT-47846 Venipuncture Draw Fee 16:02:19 CDT CPT-G0438 Initial Annual Wellness Exam 08:10:28 CDT CPT-39693 Venipuncture Draw Fee 13:07:17 CDT CPT-G0008 Administration of Influenza Virus Vaccine 16:09:59 CDT CPT-96022 Fluzone Quadrivalent Intramuscular Suspension 0.5 ML 16: 09:59 CDT CPT-03887 Spec Collection and Handling Fee 15:05:50 CDT
--- OUTSIDE RECORDS SUMMARY | 2018-04-18 13:32 | XMS REPORT | Clinical Summary ---
Author Author Admin, Nicolas Organization [facility] Address Unknown Phone Unavailable Allergies, Adverse [...] unspecified Insect bite, infected 919.5 Active Robbie uBsby MD Insect bite, nonvenomous, of other, multiple, and unspecified sites, infected Abscess, skin 682.9 Active Robbie Busby MD Cellulitis and abscess of unspecified sites URI 465.9 Active Rober Rodríguez POLITICAL ANTHROPOLOGIST Acute upper respiratory infections of unspecified site [...] NDC Status Provider Patient Instruction VITAMIN D3 00195 UNIT ORAL TABS 2 po weekly CHOLECALCIFEROL 57128677449 Active JONATHAN Moncada Active OXYCODONE HCL ER 10 MG ORAL T12A 1 tab po 3 times qd. OXYCODONE HCL 47715880712 Active Robbie Busby MD Active NITROSTAT 0.4 MG SUBL PRN NITROGLYCERIN 73873612012 No Longer Active Robbie Busby MD Active LORATADINE 10 MG TABS 1 tablet by mouth daily for congestion and allergies. LORATADINE 56649346870 No Longer Active Robbie Busby MD Active FLONASE 50 MCG/ACT SUSP 1 spray each nostril twice daily for allergies and runny nose FLUTICASONE PROPIONATE 35810311462 No Longer Active Robbie Busby MD Active FIORICET 50-300-40 MG ORAL CAPS take 1 tab po qday prn migraines. [id number] 44882834432 No Longer Active Robbie Busby MD Active VITAMIN D3 77960 UNIT CAPS 2 CAPS PO WEEKLY CHOLECALCIFEROL 11522890595 No Longer Active Robbie Busby MD Active CYCLOBENZAPRINE HCL 10 MG TABS 1 tablet by mouth three times daily as needed for muscle spasm/pain for 10 days CYCLOBENZAPRINE HCL 51873912398 No Longer Active Robbie Busby MD Active PREDNISONE 20 MG TAB take 3 tabs daily for 3 days, 2 tabs daily for 3 days, 1 tab daily for 3 days, 1/2 tab daily for 4 days PREDNISONE 77892567082 No Longer Active Erin Garsia APRN Active CLONIDINE HCL 0.2 MG ORAL TABS 1 TAB BY MOUTH EVERY 8 HOURS 12/29 CLONIDINE HCL 67636660491 No Longer Active Erin Garsia APRN Active MECLIZINE HCL 25 MG TAB one 4 times a day as needed for dizziness MECLIZINE HCL 45826442183 No Longer Active Erin Garsia APRN Active SPIRONOLACTONE 25 MG TAB 4 tablets by mouth daily SPIRONOLACTONE 82465824911 No Longer Active Erin Garsia APRN Active LEVAQUIN 500 MG TAB 1 tablet by mouth daily for 7 days LEVOFLOXACIN 70140410169 No Longer Active Erin Garsia APRN Active BACTRIM DS 800-160 MG TAB 1 tab by mouth twice daily TRIMETHOPRIM-SULFAMETHOXAZOLE 07201001821 No Longer Active Robbie Busby MD Active HYDRALAZINE HCL 50 MG ORAL TABS TWO BY MOUTH THREE TIMES DAILY HYDRALAZINE HCL 90245770014 No Longer Active Rober Rodríguez APRN Active HYDROCODONE-ACETAMINOPHEN 5-325 MG TABS 1 tab by mouth BID prn back pain 2013 HYDROCODONE-ACETAMINOPHEN 49339802250 No Longer Active Jillina Anne ARGUELLO Active HYDROCHLOROTHIAZIDE TABS Take one by mouth daily HYDROCHLOROTHIAZIDE TABS 57614753949 No Longer Active Jillina Frazell POLITICAL ANTHROPOLOGIST Active LAMISIL 125 MG ORAL PACK 1 TAB PO DAILY TERBINAFINE HCL 48990191583 No Longer Active Jillina Frazell POLITICAL ANTHROPOLOGIST Active TRILEPTAL 150 MG ORAL TABS 1 TAB PO Q HS OXCARBAZEPINE 18443653804 No Longer Active Jillina Frazell POLITICAL ANTHROPOLOGIST Active BETADINE 10 % EXT SOLN wash with solution to treat follicultis POVIDONE-IODINE 44634086985 No Longer Active Jillina Frazell POLITICAL ANTHROPOLOGIST Active NYSTATIN 058980 UNIT/ML M/T SUSP 5mL po QID x 10 days NYSTATIN 24097175496 No Longer Active Erin Garsia APRN Active PREDNISONE 20 MG TAB 1 tablet twice daily for 2 days, then 1 tablet once daily for 2 days PREDNISONE 18535693521 No Longer Active Robbie Busby MD Active CEFDINIR 300 MG ORAL CAPS Take 1 cap po bid x 10 days CEFDINIR 36993323198 No Longer Active Robbie Busby MD Active AMLODIPINE BESYLATE 10 MG TABS 1 tablet by mouth daily AMLODIPINE BESYLATE 55992661244 Active Robbie Busby MD Active CARVEDILOL 25 MG TABS 1 & 1/2 TAB po BID CARVEDILOL 29075712873 Active Robbie Busby MD Active NEXIUM 40 MG CPDR 1 cap by mouth daily ESOMEPRAZOLE MAGNESIUM 64844237193 Active Robbie Busby MD Active PROTONIX 40 MG SOLR 1 po qday for acid reflux PANTOPRAZOLE SODIUM 33549560664 No Longer Active Gali Raida Active KEFLEX 500 MG CAP 1 po TID x 10 days CEPHALEXIN 42442777722 No Longer Active Robbie Busby MD Active TOPIRAMATE 50 MG ORAL TABS take 1 tab po BID for migraines. TOPIRAMATE 71832847950 Active Robbie Busby MD Active TEMAZEPAM 15 MG ORAL CAPS 1 TAB PO Q HS TEMAZEPAM 73450303718 Active Robbie Busby MD Active ALPRAZOLAM 2 MG ORAL TABS 1 TAB PO BID ALPRAZOLAM 91307158303 Active Robbie Busby MD Active FENOFIBRATE 145 MG TABS Take one by mouth daily FENOFIBRATE 80615516168 No Longer Active Robbie Busby MD Active SPIRONOLACTONE 50 MG TABS 1 tablet by mouth twice a day SPIRONOLACTONE 81138339748 No Longer Active Robbie Busby MD Active HYDRALAZINE HCL 25 MG TABS 1 tablet by mouth tid for hypertension HYDRALAZINE HCL 34038665548 No Longer Active Robbie Busby MD Active VIIBRYD 40 MG TABS take 1 tab po qday for depression. VILAZODONE HCL 74330677099 No Longer Active Robbie Busby MD Active TERBINAFINE HCL 250 MG TABS 1 tab po qday for foot infection 2014 TERBINAFINE HCL 80458160561 No Longer Active Robbie Busby MD Active GABAPENTIN 300 MG CAPS 1 po q hs for nerve pain GABAPENTIN 09008475670 Active Robbie Busby MD Active CHERATUSSIN AC 100-10 MG/5ML ORAL SOLN 7.5 mL PO q 4-6 hrs PRN cough GUAIFENESIN-CODEINE 04365546541 No Longer Active Robbie Busby MD Active AZITHROMYCIN 250 MG ORAL TABS 2 tablets PO today---then, 1 tablet PO daily x 4 more days (and 1 optional refill) AZITHROMYCIN 41817329302 No Longer Active Robbie Busby MD Active NORVASC 10 MG TAB 1 tablet by mouth daily AMLODIPINE BESYLATE 29752964663 No Longer Active Alex ALVAREZ Active IMDUR 60 MG TAB CR take 1 tab po qday for blood pressure ISOSORBIDE MONONITRATE Active Robbie Busby MD Active ISOSORBIDE DINITRATE 30 MG TABS Take one by mouth daily ISOSORBIDE DINITRATE 25095172630 No Longer Active Robbie Busby MD Active VIIBRYD 40 MG TABS 1 TA B PO DAILY VILAZODONE HCL 45156395652 Active Robbie Busby MD Active ZITHROMAX 250 MG TAB 2 po today, then 1 po q days 2-5 AZITHROMYCIN 11093665606 No Longer Active Robbie Busby MD Active [id number] 0.3 MG/24HR PTWK apply 2 patches q week for HTN CLONIDINE HCL 84808772338 Active Robbie Busby MD Active DOXAZOSIN MESYLATE 4 MG TABS Take one by mouth daily DOXAZOSIN MESYLATE 08756357996 Active Robbie Busby MD Active TOPROL XL 200 MG [id number]-LLF Take one by mouth daily METOPROLOL SUCCINATE 63075101799 Active Robbie Busby MD Active VENLAFAXINE HCL ER 150 MG [id number]-MGS Take one by mouth daily VENLAFAXINE HCL 65148490111 Active Robbie Busby MD Active LIPITOR 40 MG TABS Take one by mouth daily ATORVASTATIN CALCIUM 03663707023 Active Robbie Busby MD Active ISOSORBIDE DINITRATE 30 MG TABS Take one by mouth daily ISOSORBIDE DINITRATE 30 MG TABS 439728 ISOSORBIDE DINITRATE Inactive NORVASC 10 MG TAB 1 tablet by mouth daily NORVASC 10 MG TAB 306284 AMLODIPINE BESYLATE Inactive AZITHROMYCIN 250 MG ORAL TABS 2 tablets PO today---then, 1 tablet PO daily x 4 more days (and 1 optional refill) AZITHROMYCIN 250 MG ORAL TABS 0730229 AZITHROMYCIN Inactive CHERATUSSIN AC 100-10 MG/5ML ORAL SOLN 7.5 mL PO q 4-6 hrs PRN cough CHERATUSSIN AC 100-10 MG/5ML ORAL SOLN 055310 GUAIFENESIN- CODEINE Inactive VIIBRYD 40 MG TABS take 1 tab po qday for depression. VIIBRYD 40 MG TABS VILAZODONE HCL Inactive HYDRALAZINE HCL 25 MG TABS 1 tablet by mouth tid for hypertension HYDRALAZINE HCL 25 MG TABS 591108 HYDRALAZINE HCL Inactive SPIRONOLACTONE 50 MG TABS 1 tablet by mouth twice a day SPIRONOLACTONE 50 MG TABS 451446 SPIRONOLACTONE Inactive FENOFIBRATE 145 MG TABS Take one by mouth daily FENOFIBRATE 145 MG TABS 103591 FENOFIBRATE Inactive PROTONIX 40 MG SOLR 1 po qday for acid reflux PROTONIX 40 MG SOLR 703706 PANTOPRAZOLE SODIUM Inactive CEFDINIR 300 MG ORAL CAPS Take 1 cap po bid x 10 days CEFDINIR 300 MG ORAL CAPS 953056 CEFDINIR Inactive PREDNISONE 20 MG TAB 1 tablet twice daily for 2 days, then 1 tablet once daily for 2 days PREDNISONE 20 MG TAB 323427 PREDNISONE Inactive NYSTATIN 874133 UNIT/ML M/T SUSP 5mL po QID x 10 days NYSTATIN 616673 UNIT/ML M/T SUSP 540875 NYSTATIN Inactive BETADINE 10 % EXT SOLN wash with solution to treat follicultis BETADINE 10 % EXT SOLN 8075730 POVIDONE-IODINE Inactive TRILEPTAL 150 MG ORAL TABS 1 TAB PO Q HS TRILEPTAL 150 MG ORAL TABS 136605 OXCARBAZEPINE Inactive LAMISIL 125 MG ORAL PACK 1 TAB PO DAILY LAMISIL 125 MG ORAL PACK TERBINAFINE HCL Inactive HYDROCHLOROTHIAZIDE TABS Take one by mouth daily HYDROCHLOROTHIAZIDE TABS HYDROCHLOROTHIAZIDE TABS Inactive HYDROCODONE-ACETAMINOPHEN 5-325 MG TABS 1 tab by mouth BID prn back pain 2013 HYDROCODONE-ACETAMINOPHEN 5-325 MG TABS 984263 HYDROCODONE -ACETAMINOPHEN Inactive HYDRALAZINE HCL 50 MG ORAL TABS TWO BY MOUTH THREE TIMES DAILY HYDRALAZINE HCL 50 MG ORAL TABS 977726 HYDRALAZINE HCL Inactive LEVAQUIN 500 MG TAB 1 tablet by mouth daily for 7 days LEVAQUIN 500 MG TAB 605734 LEVOFLOXACIN Inactive SPIRONOLACTONE 25 MG TAB 4 tablets by mouth daily SPIRONOLACTONE 25 MG TAB 935433 SPIRONOLACTONE Inactive MECLIZINE HCL 25 MG TAB one 4 times a day as needed for dizziness MECLIZINE HCL 25 MG TAB 166574 MECLIZINE HCL Inactive CLONIDINE HCL 0.2 MG ORAL TABS 1 TAB BY MOUTH EVERY 8 HOURS 12/29 CLONIDINE HCL 0.2 MG ORAL TABS 974666 CLONIDINE HCL Inactive CYCLOBENZAPRINE HCL 10 MG TABS 1 tablet by mouth three times daily as needed for muscle spasm/pain for 10 days CYCLOBENZAPRINE HCL 10 MG TABS 044329 CYCLOBENZAPRINE HCL Inactive VITAMIN D3 02445 UNIT CAPS 2 CAPS PO WEEKLY VITAMIN D3 82033 UNIT CAPS CHOLECALCIFEROL Inactive FIORICET 50-300-40 MG ORAL CAPS take 1 tab po qday prn migraines. FIORICET 50-300-40 MG ORAL CAPS 438972 [id number] Inactive FLONASE 50 MCG/ACT SUSP 1 spray each nostril twice daily for allergies and runny nose FLONASE 50 MCG/ACT SUSP 9113722 FLUTICASONE PROPIONATE Inactive LORATADINE 10 MG TABS 1 tablet by mouth daily for congestion and allergies. LORATADINE 10 MG TABS 479641 LORATADINE Inactive NITROSTAT 0.4 MG SUBL PRN NITROSTAT 0.4 MG SUBL 459895 NITROGLYCERIN Inactive ZITHROMAX 250 MG TAB 2 po today, then 1 po q days 2-5 ZITHROMAX 250 MG TAB 6943302 AZITHROMYCIN Inactive TERBINAFINE HCL 250 MG TABS 1 tab po qday for foot infection 2014 TERBINAFINE HCL 250 MG TABS 492948 TERBINAFINE HCL Inactive KEFLEX 500 MG CAP 1 po TID x 10 days KEFLEX 500 MG CAP 070237 CEPHALEXIN Inactive BACTRIM DS 800-160 MG TAB 1 tab by mouth twice daily BACTRIM DS 800-160 MG TAB 378820 TRIMETHOPRIM-SULFAMETHOXAZOLE Inactive PREDNISONE 20 MG TAB take 3 tabs daily for 3 days, 2 tabs daily for 3 days, 1 tab daily for 3 days, 1/2 tab daily for 4 days PREDNISONE 20 MG TAB 998835 PREDNISONE Inactive Advance Directives Directive Description Start [...] pressure, diastolic - 8462-4 90 mm[Hg] BP edl rio blood pressure, systolic - 8480-6 145 [...] % 11.0-15.0 platelet count 185 THOUSAND/UL 10*3/mm3 315-645 1465/04/14 mean platelet volume 10.9 fL 7.5-12.5 Lab Report: LIPID PANEL, TSH/899, T4, FREE/866 - Chemistry cholesterol, serum 220 mg/dL 343-376 3459/04/14 HDL cholesterol, serum 30 mg/dL > OR=40 [...] mg/dL Encounters Code Encounter Date Provider Facility CPT-00682 Level 3 Est. Patient 16:07:10 CDT Robbie Busby MD [facility] CPT-55980 Level 4 Est. Patient 11:56:16 CDT Erin Garsia [facility] CPT-40713 Level 3 Est. Patient 17:48:02 CDT Robbie Busby MD [facility] CPT-14326 Level 4 Est. Patient 12:00:49 CADASTRAL SURVEYOR Rober Rodríguez [facility] CPT-59086 Level 3 Est. Patient 09:16:37 CDT Robbie Busby MD [facility] CPT-85458 Level 3 Est. Patient 19:38:43 CDT Robbie Busby MD [facility] CPT-79141 Level 3 Est. Patient 11:53:38 CDT Robbie Busby MD [facility] CPT-55328 Level 4 Est. Patient 12:52:22 CDT Rober Rodríguez [facility] CPT-32030 Level 4 Est. Patient 22:55:17 CDT Robbie Busby MD [facility] CPT-50954 Level 3 Est. Patient 12:38:24 CDT Desmond Diaz DO [facility] CPT-00300 Level 4 Est. Patient 11:25:03 CADASTRAL SURVEYOR Robbie Busby MD [facility] CPT-18016 Level 4 Est. Patient 14:50:10 CDT Robbie Busby MD [facility] CPT-21636 Level 4 Est. Patient 23:30:43 CDT Robbie Busby MD [facility] CPT-77768 Level 4 Est. Patient 10:30:43 CDT Robbie Busby MD [facility] CPT-31049 Level 3 Est. Patient 17:08:12 CDT Alex Shaw [facility] CPT-35309 Level 4 Est. Patient 17:51:38 CDT Robbie Busby MD [facility] CPT-66866 Level 4 Est. Patient 14:00:21 CDT Robbie Busby MD [facility] CPT-88592 Level 4 Est. Patient 12:46:48 CDT Robbie Busby MD [facility] CPT-85173 Level 4 Est. Patient 13:34:33 CDT Robbie Busby MD [facility] CPT-45134 Level 4 Est. Patient 16:58:28 CDT Robbie Busby MD [facility] CPT-94794 Level 3 Est. Patient 19:36:53 CDT Alex ALVAREZ [facility] CPT-68964 Level 3 Est. Patient 12:58:15 CDT Robbie Busby MD [facility] Procedures Code Procedure Name Date Entry Date Standard Description CPT-29061 Ribs unilateral 2V - XRAY USE ONLY 12:10:11 CDT CPT-27027 First Vx - Ix admin for Medicare patients 16:32:53 CDT CPT-94701 Boostrix Intramuscular Suspension 5-2.5-18.5 16:32:53 CDT CPT-72776 TB Skin Test 11:42:28 CDT CPT-58998 Tdap 7yrs or > 11:42:28 CDT CPT-J0696 Rocephin 1000 mg (Ceftriaxone) 17:43:43 CADASTRAL SURVEYOR CPT-J1040 Depo Medrol 80 mg (Methyl Prednisolone Acetate) 17:43: 43 CADASTRAL SURVEYOR CPT-J1100 Decadron 8mg (Dexamethasone) 17:43:42 CADASTRAL SURVEYOR CPT-19550 Abx/Therapy Injection 17:43:42 CADASTRAL SURVEYOR CPT-95832 Abx/Therapy Injection 17:43:42 CADASTRAL SURVEYOR CPT-J1040 Depo Medrol 80 mg (Methyl Prednisolone Acetate) 09:43: 34 CADASTRAL SURVEYOR CPT-J1100 Decadron 8mg (Dexamethasone) 09:43:34 CADASTRAL SURVEYOR CPT-J0696 Rocephin 1gm Inj Solr 09:43:34 CADASTRAL SURVEYOR CPT-29250 Wound Culture - LAB USE ONLY 14:00:21 CDT CPT-I/D I/D Abscess 09:16:37 CDT CPT-74985 Venipuncture Draw Fee 15:20:23 CDT CPT-15663 Microalbumin - LAB USE ONLY 16:02:19 CDT CPT-33015 CBC - LAB USE ONLY 16:02:19 CDT CPT-58517 Venipuncture Draw Fee 16:02:19 CDT CPT-G0438 Initial Annual Wellness Exam 08:10:28 CDT CPT-47994 Venipuncture Draw Fee 13:07:17 CDT CPT-G0008 Administration of Influenza Virus Vaccine 16:09:59 CDT CPT-52060 Fluzone Quadrivalent Intramuscular Suspension 0.5 ML 16: 09:59 CDT CPT-36225 Spec Collection and Handling Fee 15:05:50 CDT
--- OUTSIDE RECORDS SUMMARY | 2018-04-18 13:34 | XMS REPORT | Clinical Summary ---
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 Desmond Diaz DO Other malignant secondary hypertension Tachycardia 785.0 Active Rober Rodríguez LINK ASSEMBLER Tachycardia, unspecified Insect bite, infected 919.5 Resolved Desmond Diaz DO Insect bite, nonvenomous, of other, multiple, and unspecified sites, infected Abscess, skin 682.9 Resolved Desmond Diaz DO Cellulitis and abscess of unspecified sites URI 465.9 Resolved Desmond Diaz DO Acute upper respiratory infections of unspecified site Hypertension 401.9 Active Rober Rodríguez LINK ASSEMBLER Unspecified essential hypertension Sinusitis - acute [...] Hypogonadism, low testosterone 257.2 Active Erin Mai LINK ASSEMBLER Other testicular hypofunction Low back pain, [...] unspecified site Sinusitis ICD-461.9 Inactive Emily Atwood MATCH UP WORKER 2017 Low back pain, acute ICD-724.2 Inactive Emily Atwood MATCH UP WORKER Low back pain, chronic ICD-724.2 Inactive Emily Atwood MATCH UP WORKER Bronchitis, acute ICD-466.0 Inactive Emily Atwood MATCH UP WORKER Onychomycosis, toenails ICD-110.1 Inactive Emily Atwood MATCH UP WORKER Dizziness ICD-780.4 Inactive Emily Atwood MATCH UP WORKER 2017 Folliculitis ICD-704.8 Inactive Emily Atwood MATCH UP WORKER Pharyngitis-Acute ICD-462 Inactive Emily Atwood MATCH UP WORKER Fatigue ICD-780.79 Inactive Emily Atwood MATCH UP WORKER 09/20 Hypertension, secondary, malignant ICD-405.09 Inactive Emily Atwood MATCH UP WORKER Insect bite, infected ICD-919.5 Inactive Emily Atwood MATCH UP WORKER Abscess, skin ICD-682.9 Inactive Emily Atwood MATCH UP WORKER URI ICD-465.9 Inactive Emily Atwood MATCH UP WORKER Sinusitis - acute ICD-461.9 Inactive Emily Atwood MATCH UP WORKER Acute confusion ICD-293.0 Inactive Emily Atwood MATCH UP WORKER Headache ICD-784.0 Inactive Emily Atwood MATCH UP WORKER 09/20 Back pain ICD-724.5 Inactive Emily Atwood MATCH UP WORKER 2017 Rib pain, right sided ICD-786.50 Inactive Emily Atwood MATCH UP WORKER Myalgias ICD-729.1 Inactive Emily Atwood MATCH UP WORKER 09/20 URI ICD-465.9 Inactive Emily Atwood MATCH UP WORKER Bronchitis-Acute ICD-466.0 Inactive Desmond Diaz DO Medication List Medication Instructions Start Date Stop Date Generic Name NDC Status Provider Patient Instruction PREDNISONE 20 MG ORAL TABLET 2 po qd x 5 days PREDNISONE 66015607763 No Longer Active Renny Bella MD Active PROMETHAZINE-CODEINE 6.25-10 MG/5ML ORAL SYRUP 5ml po q6hr PRN Cough PROMETHAZINE-CODEINE 65241381780 Active Renny Bella MD Active MONTELUKAST SODIUM 10 MG ORAL TABLET 1 tab po daily for allergies MONTELUKAST SODIUM 52590806158 Active JONATHAN Moncada Active IMDUR 60 MG ORAL TABLET EXTENDED RELEASE 24 HOUR 1 po q day ISOSORBIDE MONONITRATE 86372915205 Active Emma Hernandez Active METOPROLOL SUCCINATE ER 200 MG ORAL TABLET EXTENDED RELEASE 24 HOUR take 1 tab po qday for high blood pressure and rapid pulse METOPROLOL SUCCINATE 83454718070 Active Robbie Busby MD Active [id number] 0.3 MG/24HR TRANSDERMAL PATCH WEEKLY apply 2 patches q week for HTN CLONIDINE HCL 86065128819 No Longer Active Robbie Busby MD Active IMDUR 60 MG ORAL TABLET EXTENDED RELEASE 24 HOUR take 1 tab po qday for blood pressure ISOSORBIDE MONONITRATE 08369433317 No Longer Active Robbie Busby MD Active TEMAZEPAM 15 MG ORAL CAPSULE 1 TAB PO Q HS TEMAZEPAM 59491704415 No Longer Active Robbie Busby MD Active TOPIRAMATE 50 MG ORAL TABLET 1 po BID for migraines TOPIRAMATE 24097920550 No Longer Active Robbie Busby MD Active CYCLOBENZAPRINE HCL 10 MG ORAL TABLET 1 tablet by mouth three times daily as needed for muscle spasm/pain CYCLOBENZAPRINE HCL 13467362003 No Longer Active Robbie Busby MD Active TOPROL XL 200 MG ORAL TABLET EXTENDED RELEASE 24 HOUR Take one by mouth daily METOPROLOL SUCCINATE 49100929314 No Longer Active Robbie Busby MD Active METFORMIN HCL 500 MG ORAL TABLET 1 tablet by mouth daily for diabetes type 2 METFORMIN HCL 56270860485 Active Robbie Busby MD Active SINGULAIR 10 MG ORAL TABLET 1 po qday for allergies. MONTELUKAST SODIUM 61098090449 No Longer Active Robbie Busby MD Active PREDNISONE 20 MG ORAL TABLET two tabs by mouth today, then one tab by mouth days two and three PREDNISONE 41458263057 No Longer Active Robbie Busby MD Active AZITHROMYCIN 250 MG ORAL TABLET 2 po qd x 1 day, then 1 po qd x 4 days 09/20 AZITHROMYCIN 67828402128 No Longer Active Desmond Diaz DO Active TOPIRAMATE 50 MG ORAL TABLET take 1 tab po BID for migraines. TOPIRAMATE 28520571716 No Longer Active Desmond Diaz DO Active CYCLOBENZAPRINE HCL 10 MG ORAL TABLET 1 po TID PRN muscle spasm/pain for 10 days CYCLOBENZAPRINE HCL 92478980110 No Longer Active Desmond Diaz DO Active GUAIFENESIN ER 600 MG ORAL TABLET EXTENDED RELEASE 12 HOUR 1 tab po q am 2016 GUAIFENESIN 32925888839 No Longer Active Robbie Busby MD Active DIVALPROEX SODIUM ER 500 MG ORAL TABLET EXTENDED RELEASE 24 HOUR Once daily DIVALPROEX SODIUM 77879347699 Active Robbie Busby MD Active DEPO-TESTOSTERONE 200 MG/ML INTRAMUSCULAR SOLUTION 1 IM Injections every 2 weeks for low testosterone TESTOSTERONE CYPIONATE 39459310799 Active Zulema Blank LPN Active FLUTICASONE PROPIONATE 50 MCG/ACT NASAL SUSPENSION 2 sprays per nostril bid for 1 week, then 1 spray bid FLUTICASONE PROPIONATE 83763128365 Active Jishantel Rodríguez APRN Active HYDRALAZINE HCL 25 MG ORAL TABLET Take 1 tab BID. HYDRALAZINE HCL 40558581130 Active Jishantel Rodríguez APRN Active VITAMIN D3 51825 UNIT ORAL TABLET 2 po weekly CHOLECALCIFEROL 76515128234 Active Robbie Busby MD Active OXYCODONE HCL ER 10 MG ORAL TABLET ER 12 HOUR ABUSE-DETERRENT 1 tab po 3 times qd. OXYCODONE HCL 63034308933 Active Robbie Busby MD Active NITROSTAT 0.4 MG SUBLINGUAL TABLET SUBLINGUAL PRN NITROGLYCERIN 06315077169 No Longer Active Robbie Busby MD Active LORATADINE 10 MG ORAL TABLET 1 tablet by mouth daily for congestion and allergies. LORATADINE 36722036568 No Longer Active Robbie Busby MD Active FLONASE 50 MCG/ACT NASAL SUSPENSION 1 spray each nostril twice daily for allergies and runny nose FLUTICASONE PROPIONATE 51326775105 No Longer Active Robbie Busby MD Active FIORICET 50-300-40 MG ORAL CAPSULE take 1 tab po qday prn migraines. [id number] 32584844332 No Longer Active Robbie Busby MD Active VITAMIN D3 03475 UNIT ORAL CAPSULE 2 CAPS PO WEEKLY CHOLECALCIFEROL 22397908991 No Longer Active Robbie Busby MD Active CYCLOBENZAPRINE HCL 10 MG ORAL TABLET 1 tablet by mouth three times daily as needed for muscle spasm/pain for 10 days CYCLOBENZAPRINE HCL 64464750064 No Longer Active Robbie Busby MD Active PREDNISONE 20 MG ORAL TABLET take 3 tabs daily for 3 days, 2 tabs daily for 3 days, 1 tab daily for 3 days, 1/2 tab daily for 4 days PREDNISONE 36362950177 No Longer Active Erin Arezane GONZALEZN Active CLONIDINE HCL 0.2 MG ORAL TABLET 1 TAB BY MOUTH EVERY 8 HOURS CLONIDINE HCL 03434315736 No Longer Active Erin Arell LINK ASSEMBLER Active MECLIZINE HCL 25 MG ORAL TABLET one 4 times a day as needed for dizziness MECLIZINE HCL 50858036426 No Longer Active Erin Arell LINK ASSEMBLER Active SPIRONOLACTONE 25 MG ORAL TABLET 4 tablets by mouth daily SPIRONOLACTONE 34634236004 No Longer Active Erin Arell LINK ASSEMBLER Active LEVAQUIN 500 MG ORAL TABLET 1 tablet by mouth daily for 7 days LEVOFLOXACIN 09453066280 No Longer Active Erin Arell LINK ASSEMBLER Active BACTRIM DS 800-160 MG ORAL TABLET 1 tab by mouth twice daily 2015 TRIMETHOPRIM-SULFAMETHOXAZOLE 38698027143 No Longer Active Robbie Busby MD Active HYDRALAZINE HCL 50 MG ORAL TABLET TWO BY MOUTH THREE TIMES DAILY HYDRALAZINE HCL 10206605185 No Longer Active Rober Rodríguez APRN Active HYDROCODONE-ACETAMINOPHEN 5-325 MG ORAL TABLET 1 tab by mouth BID prn back pain HYDROCODONE-ACETAMINOPHEN 30200720244 No Longer Active Rober Rodríguez APRN Active HYDROCHLOROTHIAZIDE TABLET Take one by mouth daily HYDROCHLOROTHIAZIDE TABS 84241842359 No Longer Active Jillina Frazell LINK ASSEMBLER Active LAMISIL 125 MG ORAL PACKET 1 TAB PO DAILY TERBINAFINE HCL 01348439626 No Longer Active Jillina Frazell LINK ASSEMBLER Active TRILEPTAL 150 MG ORAL TABLET 1 TAB PO Q HS OXCARBAZEPINE 80804067770 No Longer Active Jillina Frazell LINK ASSEMBLER Active BETADINE 10 % EXTERNAL SOLUTION wash with solution to treat follicultis 07/29 POVIDONE-IODINE 59157392521 No Longer Active Jillina Frazell LINK ASSEMBLER Active NYSTATIN 278791 UNIT/ML MOUTH/THROAT SUSPENSION 5mL po QID x 10 days NYSTATIN 05885388096 No Longer Active Erin Mai APRN Active PREDNISONE 20 MG ORAL TABLET 1 tablet twice daily for 2 days, then 1 tablet once daily for 2 days PREDNISONE 91968792102 No Longer Active Robbie Busby MD Active CEFDINIR 300 MG ORAL CAPSULE Take 1 cap po bid x 10 days CEFDINIR 60034630274 No Longer Active Robbie Busby MD Active AMLODIPINE BESYLATE 10 MG ORAL TABLET 1 tablet by mouth daily AMLODIPINE BESYLATE 04185029159 Active Robbie Busby MD Active CARVEDILOL 25 MG ORAL TABLET 1 & 1/2 TAB po BID CARVEDILOL 15640245710 Active Robbie Busby MD Active NEXIUM 40 MG ORAL CAPSULE DELAYED RELEASE 1 cap by mouth daily ESOMEPRAZOLE MAGNESIUM 83186419355 Active Robbie Busby MD Active PROTONIX 40 MG INTRAVENOUS SOLUTION RECONSTITUTED 1 po qday for acid reflux PANTOPRAZOLE SODIUM 03654874123 No Longer Active Gali Raida Active KEFLEX 500 MG ORAL CAPSULE 1 po TID x 10 days CEPHALEXIN 53474286457 No Longer Active Robbie Busby MD Active ALPRAZOLAM 2 MG ORAL TABLET 1 TAB PO BID ALPRAZOLAM 19608962116 Active Robbie Busby MD Active FENOFIBRATE 145 MG ORAL TABLET Take one by mouth daily FENOFIBRATE 07771632027 No Longer Active Robbie Busby MD Active SPIRONOLACTONE 50 MG ORAL TABLET 1 tablet by mouth twice a day SPIRONOLACTONE 99120762144 No Longer Active Robbie Busby MD Active HYDRALAZINE HCL 25 MG ORAL TABLET 1 tablet by mouth tid for hypertension 2013 HYDRALAZINE HCL 64643793157 No Longer Active Robbie Busby MD Active VIIBRYD 40 MG ORAL TABLET take 1 tab po qday for depression. 2014 VILAZODONE HCL 77664949857 No Longer Active Robbie Busby MD Active TERBINAFINE HCL 250 MG ORAL TABLET 1 tab po qday for foot infection TERBINAFINE HCL 65995341726 No Longer Active Robbie Busby MD Active GABAPENTIN 300 MG ORAL CAPSULE 1 po q hs for nerve pain GABAPENTIN 93745133135 Active Robbie Busby MD Active CHERATUSSIN AC 100-10 MG/5ML ORAL SOLUTION 7.5 mL PO q 4-6 hrs PRN cough 2014 GUAIFENESIN-CODEINE 28936626540 No Longer Active Robbie Busby MD Active AZITHROMYCIN 250 MG ORAL TABLET 2 tablets PO today---then, 1 tablet PO daily x 4 more days (and 1 optional refill) AZITHROMYCIN 32933926504 No Longer Active Robbie Busby MD Active NORVASC 10 MG ORAL TABLET 1 tablet by mouth daily AMLODIPINE BESYLATE 58826286703 No Longer Active Alex ALVAREZ Active ISOSORBIDE DINITRATE 30 MG ORAL TABLET Take one by mouth daily ISOSORBIDE DINITRATE 24122632524 No Longer Active Robbie Busby MD Active VIIBRYD 40 MG ORAL TABLET 1 TA B PO DAILY VILAZODONE HCL 61208888401 Active Robbie Busby MD Active ZITHROMAX 250 MG ORAL TABLET 2 po today, then 1 po q days 2-5 AZITHROMYCIN 82855660164 No Longer Active Robbie Busby MD Active DOXAZOSIN MESYLATE 4 MG ORAL TABLET Take one by mouth daily DOXAZOSIN MESYLATE 12732020859 Active Robbie Busby MD Active VENLAFAXINE HCL ER 150 MG ORAL TABLET EXTENDED RELEASE 24 HOUR Take one by mouth daily VENLAFAXINE HCL 77080749467 Active Robbie Busby MD Active LIPITOR 40 MG ORAL TABLET Take one by mouth daily ATORVASTATIN CALCIUM 86724258672 Active Robbie Busby MD Active ISOSORBIDE DINITRATE 30 MG ORAL TABLET Take one by mouth daily ISOSORBIDE DINITRATE 30 MG ORAL TABLET 458215 ISOSORBIDE DINITRATE Inactive NORVASC 10 MG ORAL TABLET 1 tablet by mouth daily NORVASC 10 MG ORAL TABLET 777697 AMLODIPINE BESYLATE Inactive AZITHROMYCIN 250 MG ORAL TABLET 2 tablets PO today---then, 1 tablet PO daily x 4 more days (and 1 optional refill) AZITHROMYCIN 250 MG ORAL TABLET 300812 AZITHROMYCIN Inactive CHERATUSSIN AC 100-10 MG/5ML ORAL SOLUTION 7.5 mL PO q 4-6 hrs PRN cough 2014 CHERATUSSIN AC 100-10 MG/5ML ORAL SOLUTION 108508 GUAIFENESIN-CODEINE Inactive VIIBRYD 40 MG ORAL TABLET take 1 tab po qday for depression. 2014 VIIBRYD 40 MG ORAL TABLET VILAZODONE HCL Inactive HYDRALAZINE HCL 25 MG ORAL TABLET 1 tablet by mouth tid for hypertension 2013 HYDRALAZINE HCL 25 MG ORAL TABLET 026693 HYDRALAZINE HCL Inactive SPIRONOLACTONE 50 MG ORAL TABLET 1 tablet by mouth twice a day SPIRONOLACTONE 50 MG ORAL TABLET 258176 SPIRONOLACTONE Inactive FENOFIBRATE 145 MG ORAL TABLET Take one by mouth daily FENOFIBRATE 145 MG ORAL TABLET 208010 FENOFIBRATE Inactive PROTONIX 40 MG INTRAVENOUS SOLUTION RECONSTITUTED 1 po qday for acid reflux PROTONIX 40 MG INTRAVENOUS SOLUTION RECONSTITUTED 841039 PANTOPRAZOLE SODIUM Inactive CEFDINIR 300 MG ORAL CAPSULE Take 1 cap po bid x 10 days CEFDINIR 300 MG ORAL CAPSULE 713929 CEFDINIR Inactive PREDNISONE 20 MG ORAL TABLET 1 tablet twice daily for 2 days, then 1 tablet once daily for 2 days PREDNISONE 20 MG ORAL TABLET 347023 PREDNISONE Inactive NYSTATIN 511352 UNIT/ML MOUTH/THROAT SUSPENSION 5mL po QID x 10 days NYSTATIN 233847 UNIT/ML MOUTH/THROAT SUSPENSION 558213 NYSTATIN Inactive BETADINE 10 % EXTERNAL SOLUTION wash with solution to treat follicultis 07/29 BETADINE 10 % EXTERNAL SOLUTION 2222848 POVIDONE-IODINE Inactive TRILEPTAL 150 MG ORAL TABLET 1 TAB PO Q HS TRILEPTAL 150 MG ORAL TABLET 426726 OXCARBAZEPINE Inactive LAMISIL 125 MG ORAL PACKET 1 TAB PO DAILY LAMISIL 125 MG ORAL PACKET TERBINAFINE HCL Inactive HYDROCHLOROTHIAZIDE TABLET Take one by mouth daily HYDROCHLOROTHIAZIDE TABLET HYDROCHLOROTHIAZIDE TABS Inactive HYDROCODONE-ACETAMINOPHEN 5-325 MG ORAL TABLET 1 tab by mouth BID prn back pain HYDROCODONE-ACETAMINOPHEN 5-325 MG ORAL TABLET 414072 HYDROCODONE-ACETAMINOPHEN Inactive HYDRALAZINE HCL 50 MG ORAL TABLET TWO BY MOUTH THREE TIMES DAILY HYDRALAZINE HCL 50 MG ORAL TABLET 180669 HYDRALAZINE HCL Inactive LEVAQUIN 500 MG ORAL TABLET 1 tablet by mouth daily for 7 days LEVAQUIN 500 MG ORAL TABLET 138716 LEVOFLOXACIN Inactive SPIRONOLACTONE 25 MG ORAL TABLET 4 tablets by mouth daily SPIRONOLACTONE 25 MG ORAL TABLET 548154 SPIRONOLACTONE Inactive MECLIZINE HCL 25 MG ORAL TABLET one 4 times a day as needed for dizziness MECLIZINE HCL 25 MG ORAL TABLET 795991 MECLIZINE HCL Inactive CLONIDINE HCL 0.2 MG ORAL TABLET 1 TAB BY MOUTH EVERY 8 HOURS CLONIDINE HCL 0.2 MG ORAL TABLET 999336 CLONIDINE HCL Inactive CYCLOBENZAPRINE HCL 10 MG ORAL TABLET 1 tablet by mouth three times daily as needed for muscle spasm/pain for 10 days CYCLOBENZAPRINE HCL 10 MG ORAL TABLET 319121 CYCLOBENZAPRINE HCL Inactive VITAMIN D3 50179 UNIT ORAL CAPSULE 2 CAPS PO WEEKLY VITAMIN D3 05876 UNIT ORAL CAPSULE CHOLECALCIFEROL Inactive FIORICET 50-300-40 MG ORAL CAPSULE take 1 tab po qday prn migraines. FIORICET 50-300-40 MG ORAL CAPSULE 403200 BUTALBITAL-APAP- CAFFEINE Inactive FLONASE 50 MCG/ACT NASAL SUSPENSION 1 spray each nostril twice daily for allergies and runny nose FLONASE 50 MCG/ACT NASAL SUSPENSION 1279185 FLUTICASONE PROPIONATE Inactive LORATADINE 10 MG ORAL TABLET 1 tablet by mouth daily for congestion and allergies. LORATADINE 10 MG ORAL TABLET 473294 LORATADINE Inactive NITROSTAT 0.4 MG SUBLINGUAL TABLET SUBLINGUAL PRN NITROSTAT 0.4 MG SUBLINGUAL TABLET SUBLINGUAL 018017 NITROGLYCERIN Inactive GUAIFENESIN ER 600 MG ORAL TABLET EXTENDED RELEASE 12 HOUR 1 tab po q am 2016 GUAIFENESIN ER 600 MG ORAL TABLET EXTENDED RELEASE 12 HOUR GUAIFENESIN Inactive CYCLOBENZAPRINE HCL 10 MG ORAL TABLET 1 po TID PRN muscle spasm/pain for 10 days CYCLOBENZAPRINE HCL 10 MG ORAL TABLET 634524 CYCLOBENZAPRINE HCL Inactive TOPIRAMATE 50 MG ORAL TABLET take 1 tab po BID for migraines. TOPIRAMATE 50 MG ORAL TABLET 166804 TOPIRAMATE Inactive PREDNISONE 20 MG ORAL TABLET two tabs by mouth today, then one tab by mouth days two and three PREDNISONE 20 MG ORAL TABLET 629947 PREDNISONE Inactive TOPROL XL 200 MG ORAL TABLET EXTENDED RELEASE 24 HOUR Take one by mouth daily TOPROL XL 200 MG ORAL TABLET EXTENDED RELEASE 24 HOUR METOPROLOL SUCCINATE Inactive CYCLOBENZAPRINE HCL 10 MG ORAL TABLET 1 tablet by mouth three times daily as needed for muscle spasm/pain CYCLOBENZAPRINE HCL 10 MG ORAL TABLET 979731 CYCLOBENZAPRINE HCL Inactive TOPIRAMATE 50 MG ORAL TABLET 1 po BID for migraines TOPIRAMATE 50 MG ORAL TABLET 073176 TOPIRAMATE Inactive TEMAZEPAM 15 MG ORAL CAPSULE 1 TAB PO Q HS TEMAZEPAM 15 MG ORAL CAPSULE 267929 TEMAZEPAM Inactive IMDUR 60 MG ORAL TABLET EXTENDED RELEASE 24 HOUR take 1 tab po qday for blood pressure IMDUR 60 MG ORAL TABLET EXTENDED RELEASE 24 HOUR ISOSORBIDE MONONITRATE Inactive [id number] 0.3 MG/24HR TRANSDERMAL PATCH WEEKLY apply 2 patches q week for HTN [id number]-0 0.3 MG/24HR TRANSDERMAL PATCH WEEKLY 487998 CLONIDINE HCL Inactive ZITHROMAX 250 MG ORAL TABLET 2 po today, then 1 po q days 2-5 ZITHROMAX 250 MG ORAL TABLET 296794 AZITHROMYCIN Inactive TERBINAFINE HCL 250 MG ORAL TABLET 1 tab po qday for foot infection TERBINAFINE HCL 250 MG ORAL TABLET 811676 TERBINAFINE HCL Inactive KEFLEX 500 MG ORAL CAPSULE 1 po TID x 10 days KEFLEX 500 MG ORAL CAPSULE 476283 CEPHALEXIN Inactive BACTRIM DS 800-160 MG ORAL TABLET 1 tab by mouth twice daily 2015 BACTRIM DS 800-160 MG ORAL TABLET 016624 TRIMETHOPRIM- SULFAMETHOXAZOLE Inactive PREDNISONE 20 MG ORAL TABLET take 3 tabs daily for 3 days, 2 tabs daily for 3 days, 1 tab daily for 3 days, 1/2 tab daily for 4 days PREDNISONE 20 MG ORAL TABLET 825813 PREDNISONE Inactive AZITHROMYCIN 250 MG ORAL TABLET 2 po qd x 1 day, then 1 po qd x 4 days 09/20 AZITHROMYCIN 250 MG ORAL TABLET 882952 AZITHROMYCIN Inactive SINGULAIR 10 MG ORAL TABLET 1 po qday for allergies. SINGULAIR 10 MG ORAL TABLET 931310 MONTELUKAST SODIUM Inactive PREDNISONE 20 MG ORAL TABLET 2 po qd x 5 days PREDNISONE 20 MG ORAL TABLET 976922 PREDNISONE Inactive Advance Directives Directive Description Start [...] AUTO - Chemistry sodium, serum 142 mmol/L 762-075 8880/07/17 carbon dioxide, venous blood 28.2 mmol/L 21.0-32.0 [...] Panel - Chemistry sodium, serum 141 mmol/L 761-709 7346/02/13 carbon dioxide, venous blood 23.9 mmol/L 21.0-32.0 [...] 6.9 % 4.3-6.0 sodium, serum 139 mmol/L 425-141 9392/01/04 potassium, serum 3.9 mmol/L 3.5-5.2 chloride, serum [...] 1.80 ng/mL 0.00-4.00 Lab Report: VITAMIN D, 25-HYDROXY/70663 - Chemistry vitamin D 25-hydroxy, serum 25 ng/mL 30-100 Encounters Code Encounter Date Provider Facility CPT-90082 Level 3 Est. Patient 13:59:07 CDT Renny Bella MD [facility] CPT-30912 Level 3 Est. Patient 16:04:17 CDT Robbie Busby MD [facility] CPT-13471 Level 4 Est. Patient 09:50:01 WET ROOM SUPERVISOR Robbie Busby MD [facility] CPT-22277 Level 4 Est. Patient 09:42:08 WET ROOM SUPERVISOR Robbie Busby MD [facility] CPT-28472 Level 4 Est. Patient 13:07:39 WET ROOM SUPERVISOR Robbie Busby MD [facility] CPT-28498 Level 4 Est. Patient 15:23:44 WET ROOM SUPERVISOR Desmond Diaz DO [facility] CPT-17002 Level 3 Est. Patient 15:40:49 CDT Robbie Busby MD [facility]-85685 Level 4 Est. Patient 15:18:19 CDT Robbie Busby MD [facility] CPT-23312 Level 3 Est. Patient 09:00:37 CDT Rober Rodríguez [facility]-26778 Level 3 Est. Patient 16:07:10 CDT Robbie Busby MD [facility] CPT-18351 Level 4 Est. Patient 11:56:16 CDT Erin Mai [facility] CPT-78945 Level 3 Est. Patient 17:48:02 CDT Robbie Busby MD [facility] CPT-08196 Level 4 Est. Patient 12:00:49 WET ROOM SUPERVISOR Rober Rodríguez [facility] CPT-44838 Level 3 Est. Patient 09:16:37 CDT Robbie Busby MD [facility] CPT-56689 Level 3 Est. Patient 19:38:43 CDT Robbie Busby MD [facility]-40365 Level 3 Est. Patient 11:53:38 CDT Robbie Busby MD [facility] CPT-86488 Level 4 Est. Patient 12:52:22 CDT Agnieszkald Rodolfoneha ARGUELLO [facility] CPT-58161 Level 4 Est. Patient 22:55:17 CDT Robbie Busby MD [facility]-39136 Level 3 Est. Patient 12:38:24 CDT Desmond Diaz DO [facility] CPT-53144 Level 4 Est. Patient 11:25:03 WET ROOM SUPERVISOR Robbie Busby MD [facility]-16428 Level 4 Est. Patient 14:50:10 CDT Robbie Busby MD [facility] CPT-05635 Level 4 Est. Patient 23:30:43 CDT Robbie Busby MD [facility]-58917 Level 4 Est. Patient 10:30:43 CDT Robbie Busby MD [facility]-77870 Level 3 Est. Patient 17:08:12 CDT Alex Shaw [facility] CPT-81546 Level 4 Est. Patient 17:51:38 CDT Robbie Busby MD [facility] CPT-36968 Level 4 Est. Patient 14:00:21 CDT Robbie Busby MD [facility] CPT-63114 Level 4 Est. Patient 12:46:48 CDT Robbie Busby MD [facility] CPT-12840 Level 4 Est. Patient 13:34:33 CDT Robbie Busby MD [facility] CPT-38346 Level 4 Est. Patient 16:58:28 CDT Robbie Busby MD [facility]-99757 Level 3 Est. Patient 19:36:53 CDT Alex Shaw [facility] CPT-26535 Level 3 Est. Patient 12:58:15 CDT Robbie Busby MD [facility] Procedures Code Procedure Name Date Entry Date Standard Description CPT-J1071 Depo Testosterone 200mg 16:17:45 CDT CPT-65302 Abx/Therapy Injection 16:17:45 CDT CPT-J1100 Decadron 8mg (Dexamethasone) 16:07:00 CDT CPT-J1040 Depo Medrol 80 mg (Methyl Prednisolone Acetate) 16:07: 00 CDT CPT-J1071 Depo Testosterone 200mg 09:01:06 CDT CPT-19900 Abx/Therapy Injection 09:01:06 CDT CPT-J1100 Decadron 8mg (Dexamethasone) 16:04:17 CDT CPT-J1040 Depo Medrol 80 mg (Methyl Prednisolone Acetate) 16:04: 17 CDT CPT-J1071 Depo Testosterone 200mg 08:56:46 CDT CPT-78671 Abx/Therapy Injection 08:56:45 CDT CPT-J1071 Depo Testosterone 200mg 08:26:27 CDT CPT-21368 Abx/Therapy Injection 08:26:27 CDT CPT-J1071 Depo Testosterone 200mg 10:27:10 CDT CPT-51521 Abx/Therapy Injection 10:27:10 CDT CPT-J1071 Depo Testosterone 200mg 16:10:29 WET ROOM SUPERVISOR CPT-27288 Abx/Therapy Injection 16:10:29 WET ROOM SUPERVISOR CPT-J1071 Depo Testosterone 200mg 16:13:47 WET ROOM SUPERVISOR CPT-86481 Abx/Therapy Injection 16:13:46 WET ROOM SUPERVISOR CPT-J1071 Depo Testosterone 200mg 15:33:58 WET ROOM SUPERVISOR CPT-45921 Abx/Therapy Injection 15:33:58 WET ROOM SUPERVISOR CPT-J1071 Depo Testosterone 200mg 09:38:36 WET ROOM SUPERVISOR CPT-68970 Abx/Therapy Injection 09:38:36 WET ROOM SUPERVISOR CPT-J1071 Depo Testosterone 200mg 10:22:56 WET ROOM SUPERVISOR CPT-72003 Abx/Therapy Injection 10:22:56 WET ROOM SUPERVISOR CPT-J1071 Depo Testosterone 200mg 15:40:23 CDT CPT-58200 Abx/Therapy Injection 15:40:23 CDT CPT-J1071 Depo Testosterone 200mg 14:20:43 CDT CPT-85987 Abx/Therapy Injection 14:20:43 CDT CPT-J1071 Depo Testosterone 200mg 14:17:22 CDT CPT-92260 Abx/Therapy Injection 14:17:22 CDT CPT-J1071 Depo Testosterone 200mg 09:03:53 CDT CPT-82404 Abx/Therapy Injection 09:03:53 CDT CPT-G0439 [facility] 16:47:44 CDT CPT-J1071 Depo Testosterone 200mg 09:06:28 CDT CPT-94860 Abx/Therapy Injection 09:06:28 CDT CPT-J1071 Depo Testosterone 200mg 08:30:01 CDT CPT-87542 Abx/Therapy Injection 08:30:01 CDT CPT-J1071 Depo Testosterone 200mg 08:24:00 CDT CPT-34323 Abx/Therapy Injection 08:24:00 CDT CPT-69496 Venipuncture Draw Fee 14:39:06 CDT CPT-91698 Ribs unilateral 2V - XRAY USE ONLY 12:10:11 CDT CPT-84733 First Vx - Ix admin for Medicare patients 16:32:53 CDT CPT-28914 Boostrix Intramuscular Suspension 5-2.5-18.5 16:32:53 CDT CPT-75945 TB Skin Test 11:42:28 CDT CPT-71446 Tdap 7yrs or > 11:42:28 CDT CPT-J0696 Rocephin 1000 mg (Ceftriaxone) 17:43:43 WET ROOM SUPERVISOR CPT-J1040 Depo Medrol 80 mg (Methyl Prednisolone Acetate) 17:43: 43 WET ROOM SUPERVISOR CPT-J1100 Decadron 8mg (Dexamethasone) 17:43:42 WET ROOM SUPERVISOR CPT-41662 Abx/Therapy Injection 17:43:42 WET ROOM SUPERVISOR CPT-76213 Abx/Therapy Injection 17:43:42 WET ROOM SUPERVISOR CPT-J1040 Depo Medrol 80 mg (Methyl Prednisolone Acetate) 09:43: 34 WET ROOM SUPERVISOR CPT-J1100 Decadron 8mg (Dexamethasone) 09:43:34 WET ROOM SUPERVISOR CPT-J0696 Rocephin 1gm Inj Solr 09:43:34 WET ROOM SUPERVISOR CPT-72636 Wound Culture - LAB USE ONLY 14:00:21 CDT CPT-I/D I/D Abscess 09:16:37 CDT CPT-64001 Venipuncture Draw Fee 15:20:23 CDT CPT-92365 Microalbumin - LAB USE ONLY 16:02:19 CDT CPT-17146 CBC - LAB USE ONLY 16:02:19 CDT CPT-92474 Venipuncture Draw Fee 16:02:19 CDT CPT-G0438 Initial Annual Wellness Exam 08:10:28 CDT CPT-27013 Venipuncture Draw Fee 13:07:17 CDT CPT-G0008 Administration of Influenza Virus Vaccine 16:09:59 CDT CPT-96295 Fluzone Quadrivalent Intramuscular Suspension 0.5 ML 16: 09:59 CDT CPT-06049 Spec Collection and Handling Fee 15:05:50 CDT
--- OUTSIDE RECORDS SUMMARY | 2018-04-18 13:35 | XMS REPORT | Clinical Summary ---
Author Author Admin, AK[place] Organization [employer] Address Unknown Phone Unavailable Allergies, Adverse Reactions, [...] muscle spasm/pain for 10 days CYCLOBENZAPRINE HCL 53434654611 Active Erin Garsia APRN Active PREDNISONE 20 MG TAB take 3 tabs daily for 3 days, 2 tabs daily for 3 days, 1 tab daily for 3 days, 1/2 tab daily for 4 days PREDNISONE 55395447585 No Longer Active Erin Garsia APRN Active CLONIDINE HCL 0.2 MG ORAL TABS 1 TAB BY MOUTH EVERY 8 HOURS 12/29 CLONIDINE HCL 28714778039 No Longer Active Erin Garsia APRN Active MECLIZINE HCL 25 MG TAB one 4 times a day as needed for dizziness MECLIZINE HCL 57027004310 No Longer Active Erin Garsia APRN Active SPIRONOLACTONE 25 MG TAB 4 tablets by mouth daily SPIRONOLACTONE 52437796626 No Longer Active Erin Garsia APRN Active LEVAQUIN 500 MG TAB 1 tablet by mouth daily for 7 days LEVOFLOXACIN 38530737531 No Longer Active Erin Ady PARTS DATA WRITER Active BACTRIM DS 800-160 MG TAB 1 tab by mouth twice daily TRIMETHOPRIM-SULFAMETHOXAZOLE 49800716703 No Longer Active Robbie Busby MD Active HYDRALAZINE HCL 50 MG ORAL TABS TWO BY MOUTH THREE TIMES DAILY HYDRALAZINE HCL 53187712000 No Longer Active Jillina Frazell PARTS DATA WRITER Active HYDROCODONE-ACETAMINOPHEN 5-325 MG TABS 1 tab by mouth BID prn back pain 2013 HYDROCODONE-ACETAMINOPHEN 24215055481 No Longer Active Jillina Frazell PARTS DATA WRITER Active HYDROCHLOROTHIAZIDE TABS Take one by mouth daily HYDROCHLOROTHIAZIDE TABS 60477462621 No Longer Active Jillina Frazell PARTS DATA WRITER Active LAMISIL 125 MG ORAL PACK 1 TAB PO DAILY TERBINAFINE HCL 89758703080 No Longer Active Jillina Frazell PARTS DATA WRITER Active TRILEPTAL 150 MG ORAL TABS 1 TAB PO Q HS OXCARBAZEPINE 55591519364 No Longer Active Jillina Frazell PARTS DATA WRITER Active BETADINE 10 % EXT SOLN wash with solution to treat follicultis POVIDONE-IODINE 88898615632 No Longer Active Jillina Frazell PARTS DATA WRITER Active NYSTATIN 196311 UNIT/ML M/T SUSP 5mL po QID x 10 days NYSTATIN 20144003083 No Longer Active Erin Garsia APRN Active PREDNISONE 20 MG TAB 1 tablet twice daily for 2 days, then 1 tablet once daily for 2 days PREDNISONE 54444585115 No Longer Active Robbei Busby MD Active CEFDINIR 300 MG ORAL CAPS Take 1 cap po bid x 10 days CEFDINIR 54812702120 No Longer Active Robbie Busby MD Active AMLODIPINE BESYLATE 10 MG TABS 1 tablet by mouth daily AMLODIPINE BESYLATE 92679363948 Active Robbie Busby MD Active CARVEDILOL 25 MG TABS 1 & 1/2 TAB po BID CARVEDILOL 34748866799 Active Robbie Busby MD Active VITAMIN D3 31184 UNIT CAPS 2 CAPS PO WEEKLY CHOLECALCIFEROL 41439832740 Active Erin Garsia APRN Active NEXIUM 40 MG CPDR 1 cap by mouth daily ESOMEPRAZOLE MAGNESIUM 20778822576 Active Robbie Busby MD Active PROTONIX 40 MG SOLR 1 po qday for acid reflux PANTOPRAZOLE SODIUM 38895248329 No Longer Active Gali Raida Active KEFLEX 500 MG CAP 1 po TID x 10 days CEPHALEXIN 11898124682 No Longer Active Robbie Busby MD Active FIORICET 50-300-40 MG ORAL CAPS take 1 tab po qday prn migraines. [id number] 17772813355 Active Robbie Busby MD Active TOPIRAMATE 50 MG ORAL TABS take 1 tab po BID for migraines. TOPIRAMATE 98972244534 Active Robbie Busby MD Active TEMAZEPAM 15 MG ORAL CAPS 1 TAB PO Q HS TEMAZEPAM 17671975367 Active Robbie Busby MD Active ALPRAZOLAM 2 MG ORAL TABS 1 TAB PO BID ALPRAZOLAM 20151479223 Active Robbie Busby MD Active FENOFIBRATE 145 MG TABS Take one by mouth daily FENOFIBRATE 94415394544 No Longer Active Robbie Busby MD Active SPIRONOLACTONE 50 MG TABS 1 tablet by mouth twice a day SPIRONOLACTONE 95916628132 No Longer Active Robbie Busby MD Active HYDRALAZINE HCL 25 MG TABS 1 tablet by mouth tid for hypertension HYDRALAZINE HCL 63696060496 No Longer Active Robbie Busby MD Active VIIBRYD 40 MG TABS take 1 tab po qday for depression. VILAZODONE HCL 38321824369 No Longer Active Robbie Busby MD Active TERBINAFINE HCL 250 MG TABS 1 tab po qday for foot infection 2014 TERBINAFINE HCL 62169212131 No Longer Active Robbie Busby MD Active GABAPENTIN 300 MG CAPS 1 po q hs for nerve pain GABAPENTIN 15959302547 Active Robbie Busby MD Active FLONASE 50 MCG/ACT SUSP 1 spray each nostril twice daily for allergies and runny nose FLUTICASONE PROPIONATE 01228670369 Active Robbie Busby MD Active CHERATUSSIN AC 100-10 MG/5ML ORAL SOLN 7.5 mL PO q 4-6 hrs PRN cough GUAIFENESIN-CODEINE 17781500818 No Longer Active Robbie Busby MD Active AZITHROMYCIN 250 MG ORAL TABS 2 tablets PO today---then, 1 tablet PO daily x 4 more days (and 1 optional refill) AZITHROMYCIN 07774108461 No Longer Active Robbie Busby MD Active NORVASC 10 MG TAB 1 tablet by mouth daily AMLODIPINE BESYLATE 40012261434 No Longer Active Alex ALVAREZ Active IMDUR 60 MG TAB CR take 1 tab po qday for blood pressure ISOSORBIDE MONONITRATE Active Robbie Busby MD Active ISOSORBIDE DINITRATE 30 MG TABS Take one by mouth daily ISOSORBIDE DINITRATE 77901932501 No Longer Active Robbie Busby MD Active VIIBRYD 40 MG TABS 1 TA B PO DAILY VILAZODONE HCL 40759102988 Active Robbie Busby MD Active LORATADINE 10 MG TABS 1 tablet by mouth daily for congestion and allergies. LORATADINE 86643887668 Active Robbie Busby MD Active ZITHROMAX 250 MG TAB 2 po today, then 1 po q days 2-5 AZITHROMYCIN 69837110888 No Longer Active Robbie Busby MD Active [id number] 0.3 MG/24HR PTWK apply 2 patches q week for HTN CLONIDINE HCL 59912227082 Active Robbie Busby MD Active NITROSTAT 0.4 MG SUBL PRN NITROGLYCERIN 44070931605 Active Robbie Busby MD Active DOXAZOSIN MESYLATE 4 MG TABS Take one by mouth daily DOXAZOSIN MESYLATE 42838065275 Active Robbie Busby MD Active TOPROL XL 200 MG [id number] Take one by mouth daily METOPROLOL SUCCINATE 78319302638 Active Robbie Busby MD Active VENLAFAXINE HCL ER 150 MG [id number] Take one by mouth daily VENLAFAXINE HCL 97699308507 Active Robbie Busby MD Active LIPITOR 40 MG TABS Take one by mouth daily ATORVASTATIN CALCIUM 69676361010 Active Robbie Busby MD Active ISOSORBIDE DINITRATE 30 MG TABS Take one by mouth daily ISOSORBIDE DINITRATE 30 MG TABS 445113 ISOSORBIDE DINITRATE Inactive NORVASC 10 MG TAB 1 tablet by mouth daily NORVASC 10 MG TAB 054904 AMLODIPINE BESYLATE Inactive AZITHROMYCIN 250 MG ORAL TABS 2 tablets PO today---then, 1 tablet PO daily x 4 more days (and 1 optional refill) AZITHROMYCIN 250 MG ORAL TABS 6321664 AZITHROMYCIN Inactive CHERATUSSIN AC 100-10 MG/5ML ORAL SOLN 7.5 mL PO q 4-6 hrs PRN cough CHERATUSSIN AC 100-10 MG/5ML ORAL SOLN 098200 GUAIFENESIN- CODEINE Inactive VIIBRYD 40 MG TABS take 1 tab po qday for depression. VIIBRYD 40 MG TABS VILAZODONE HCL Inactive HYDRALAZINE HCL 25 MG TABS 1 tablet by mouth tid for hypertension HYDRALAZINE HCL 25 MG TABS 889336 HYDRALAZINE HCL Inactive SPIRONOLACTONE 50 MG TABS 1 tablet by mouth twice a day SPIRONOLACTONE 50 MG TABS 114150 SPIRONOLACTONE Inactive FENOFIBRATE 145 MG TABS Take one by mouth daily FENOFIBRATE 145 MG TABS 618614 FENOFIBRATE Inactive PROTONIX 40 MG SOLR 1 po qday for acid reflux PROTONIX 40 MG SOLR 216723 PANTOPRAZOLE SODIUM Inactive CEFDINIR 300 MG ORAL CAPS Take 1 cap po bid x 10 days CEFDINIR 300 MG ORAL CAPS 897649 CEFDINIR Inactive PREDNISONE 20 MG TAB 1 tablet twice daily for 2 days, then 1 tablet once daily for 2 days PREDNISONE 20 MG TAB 652031 PREDNISONE Inactive NYSTATIN 627819 UNIT/ML M/T SUSP 5mL po QID x 10 days NYSTATIN 440963 UNIT/ML M/T SUSP 647289 NYSTATIN Inactive BETADINE 10 % EXT SOLN wash with solution to treat follicultis BETADINE 10 % EXT SOLN 1284576 POVIDONE-IODINE Inactive TRILEPTAL 150 MG ORAL TABS 1 TAB PO Q HS TRILEPTAL 150 MG ORAL TABS 361250 OXCARBAZEPINE Inactive LAMISIL 125 MG ORAL PACK 1 TAB PO DAILY LAMISIL 125 MG ORAL PACK TERBINAFINE HCL Inactive HYDROCHLOROTHIAZIDE TABS Take one by mouth daily HYDROCHLOROTHIAZIDE TABS HYDROCHLOROTHIAZIDE TABS Inactive HYDROCODONE-ACETAMINOPHEN 5-325 MG TABS 1 tab by mouth BID prn back pain 2013 HYDROCODONE-ACETAMINOPHEN 5-325 MG TABS 487843 HYDROCODONE -ACETAMINOPHEN Inactive HYDRALAZINE HCL 50 MG ORAL TABS TWO BY MOUTH THREE TIMES DAILY HYDRALAZINE HCL 50 MG ORAL TABS 027077 HYDRALAZINE HCL Inactive LEVAQUIN 500 MG TAB 1 tablet by mouth daily for 7 days LEVAQUIN 500 MG TAB 249248 LEVOFLOXACIN Inactive SPIRONOLACTONE 25 MG TAB 4 tablets by mouth daily SPIRONOLACTONE 25 MG TAB 903017 SPIRONOLACTONE Inactive MECLIZINE HCL 25 MG TAB one 4 times a day as needed for dizziness MECLIZINE HCL 25 MG TAB 376514 MECLIZINE HCL Inactive CLONIDINE HCL 0.2 MG ORAL TABS 1 TAB BY MOUTH EVERY 8 HOURS 12/29 CLONIDINE HCL 0.2 MG ORAL TABS 499564 CLONIDINE HCL Inactive ZITHROMAX 250 MG TAB 2 po today, then 1 po q days 2-5 ZITHROMAX 250 MG TAB 9413089 AZITHROMYCIN Inactive TERBINAFINE HCL 250 MG TABS 1 tab po qday for foot infection 2014 TERBINAFINE HCL 250 MG TABS 427230 TERBINAFINE HCL Inactive KEFLEX 500 MG CAP 1 po TID x 10 days KEFLEX 500 MG CAP 907680 CEPHALEXIN Inactive BACTRIM DS 800-160 MG TAB 1 tab by mouth twice daily BACTRIM DS 800-160 MG TAB 342948 TRIMETHOPRIM-SULFAMETHOXAZOLE Inactive PREDNISONE 20 MG TAB take 3 tabs daily for 3 days, 2 tabs daily for 3 days, 1 tab daily for 3 days, 1/2 tab daily for 4 days PREDNISONE 20 MG TAB 591916 PREDNISONE Inactive Advance Directives Directive Description Start [...] % 11.0-15.0 platelet count 185 THOUSAND/UL 10*3/mm3 369-798 0900/04/14 mean platelet volume 10.9 fL 7.5-12.5 Lab Report: LIPID PANEL, TSH/899, T4, FREE/866 - Chemistry cholesterol, serum 220 mg/dL [phone]/04/14 HDL cholesterol, serum 30 mg/dL > OR=40 [...] mg/dL Encounters Code Encounter Date Provider Facility CPT-56690 Level 4 Est. Patient 11:56:16 CDT Erin Garsia [facility] CPT-56990 Level 3 Est. Patient 17:48:02 CDT Robbie Busby MD [facility] CPT-59163 Level 4 Est. Patient 12:00:49 PREPARATION SUPERVISOR FREEZING Rober Rodríguez [facility] CPT-03239 Level 3 Est. Patient 09:16:37 CDT Robbie Busby MD [facility] CPT-51164 Level 3 Est. Patient 19:38:43 CDT Robbie Busby MD [facility] CPT-13727 Level 3 Est. Patient 11:53:38 CDT Robbie Busby MD [facility] CPT-10720 Level 4 Est. Patient 12:52:22 CDT Rober Rodríguez [facility] CPT-12993 Level 4 Est. Patient 22:55:17 CDT Robbie Busby MD [facility] CPT-51709 Level 3 Est. Patient 12:38:24 CDT Desmond Diaz DO [facility] CPT-75499 Level 4 Est. Patient 11:25:03 PREPARATION SUPERVISOR FREEZING Robbie Busby MD [facility] CPT-26416 Level 4 Est. Patient 14:50:10 CDT Robbie Busby MD [facility] CPT-34120 Level 4 Est. Patient 23:30:43 CDT Robbie Busby MD [facility] CPT-77577 Level 4 Est. Patient 10:30:43 CDT Robibe Busby MD [facility] CPT-34747 Level 3 Est. Patient 17:08:12 CDT Alex Shaw [facility] CPT-47295 Level 4 Est. Patient 17:51:38 CDT Robbie Busby MD [facility] CPT-82537 Level 4 Est. Patient 14:00:21 CDT Robbie Busby MD [facility] CPT-53935 Level 4 Est. Patient 12:46:48 CDT Robbie Busby MD [facility] CPT-62016 Level 4 Est. Patient 13:34:33 CDT Robbie Busby MD [facility] CPT-51055 Level 4 Est. Patient 16:58:28 CDT Robbie Busby MD [facility] CPT-51139 Level 3 Est. Patient 19:36:53 CDT Alex Shaw [facility] CPT-75429 Level 3 Est. Patient 12:58:15 CDT Robbie Busby MD [facility] Procedures Code Procedure Name Date Entry Date Standard Description CPT-50757 Ribs unilateral 2V - XRAY USE ONLY 12:10:11 CDT CPT-31056 First Vx - Ix admin for Medicare patients 16:32:53 CDT CPT-53514 Boostrix Intramuscular Suspension 5-2.5-18.5 16:32:53 CDT CPT-03277 TB Skin Test 11:42:28 CDT CPT-39411 Tdap 7yrs or > 11:42:28 CDT CPT-J0696 Rocephin 1000 mg (Ceftriaxone) 17:43:43 PREPARATION SUPERVISOR FREEZING CPT-J1040 Depo Medrol 80 mg (Methyl Prednisolone Acetate) 17:43: 43 PREPARATION SUPERVISOR FREEZING CPT-J1100 Decadron 8mg (Dexamethasone) 17:43:42 PREPARATION SUPERVISOR FREEZING CPT-43644 Abx/Therapy Injection 17:43:42 PREPARATION SUPERVISOR FREEZING CPT-84261 Abx/Therapy Injection 17:43:42 PREPARATION SUPERVISOR FREEZING CPT-J1040 Depo Medrol 80 mg (Methyl Prednisolone Acetate) 09:43: 34 PREPARATION SUPERVISOR FREEZING CPT-J1100 Decadron 8mg (Dexamethasone) 09:43:34 PREPARATION SUPERVISOR FREEZING CPT-J0696 Rocephin 1gm Inj Solr 09:43:34 PREPARATION SUPERVISOR FREEZING CPT-26566 Wound Culture - LAB USE ONLY 14:00:21 CDT CPT-I/D I/D Abscess 09:16:37 CDT CPT-62563 Venipuncture Draw Fee 15:20:23 CDT CPT-47176 Microalbumin - LAB USE ONLY 16:02:19 CDT CPT-99169 CBC - LAB USE ONLY 16:02:19 CDT CPT-38515 Venipuncture Draw Fee 16:02:19 CDT CPT-G0438 Initial Annual Wellness Exam 08:10:28 CDT CPT-78727 Venipuncture Draw Fee 13:07:17 CDT CPT-G0008 Administration of Influenza Virus Vaccine 16:09:59 CDT CPT-17525 Fluzone Quadrivalent Intramuscular Suspension 0.5 ML 16: 09:59 CDT CPT-33361 Spec Collection and Handling Fee 15:05:50 CDT
--- OUTSIDE RECORDS SUMMARY | 2018-04-18 13:36 | XMS REPORT | Clinical Summary ---
Author Author Admin, E Organization [facility] Address Unknown Phone Unavailable Allergies, Adverse Reactions, [...] unspecified hyperlipidemia Renal failure, chronic 585.9 Active Rbobie Busby MD Chronic kidney disease, unspecified Depression/anxiety [...] muscle spasm/pain for 10 days CYCLOBENZAPRINE HCL 50458377774 Active Erin Garsia APRN Active PREDNISONE 20 MG TAB take 3 tabs daily for 3 days, 2 tabs daily for 3 days, 1 tab daily for 3 days, 1/2 tab daily for 4 days PREDNISONE 42353309118 No Longer Active Erin Garsia APRN Active CLONIDINE HCL 0.2 MG ORAL TABS 1 TAB BY MOUTH EVERY 8 HOURS 12/29 CLONIDINE HCL 46253203010 No Longer Active Erin Garsia APRN Active MECLIZINE HCL 25 MG TAB one 4 times a day as needed for dizziness MECLIZINE HCL 47031294962 No Longer Active Erin Garsia APRN Active SPIRONOLACTONE 25 MG TAB 4 tablets by mouth daily SPIRONOLACTONE 25674479166 No Longer Active Erin Garsia APRN Active LEVAQUIN 500 MG TAB 1 tablet by mouth daily for 7 days LEVOFLOXACIN 45966819866 No Longer Active Erin Garsia APRN Active BACTRIM DS 800-160 MG TAB 1 tab by mouth twice daily TRIMETHOPRIM-SULFAMETHOXAZOLE 66774483760 No Longer Active Robbie Busby MD Active HYDRALAZINE HCL 50 MG ORAL TABS TWO BY MOUTH THREE TIMES DAILY HYDRALAZINE HCL 49969111290 No Longer Active Jillina Frazell INVENTORY AUDIT CLERK Active HYDROCODONE-ACETAMINOPHEN 5-325 MG TABS 1 tab by mouth BID prn back pain 2013 HYDROCODONE-ACETAMINOPHEN 01081877242 No Longer Active Jillina Frazell INVENTORY AUDIT CLERK Active HYDROCHLOROTHIAZIDE TABS Take one by mouth daily HYDROCHLOROTHIAZIDE TABS 88432116957 No Longer Active Jillina Frazell INVENTORY AUDIT CLERK Active LAMISIL 125 MG ORAL PACK 1 TAB PO DAILY TERBINAFINE HCL 90508739547 No Longer Active Jillina Frazell INVENTORY AUDIT CLERK Active TRILEPTAL 150 MG ORAL TABS 1 TAB PO Q HS OXCARBAZEPINE 84195122082 No Longer Active Jillina Frazell INVENTORY AUDIT CLERK Active BETADINE 10 % EXT SOLN wash with solution to treat follicultis POVIDONE-IODINE 31656526233 No Longer Active Jillina Frazell INVENTORY AUDIT CLERK Active NYSTATIN 638398 UNIT/ML M/T SUSP 5mL po QID x 10 days NYSTATIN 28612277809 No Longer Active Erin Garsia APRN Active PREDNISONE 20 MG TAB 1 tablet twice daily for 2 days, then 1 tablet once daily for 2 days PREDNISONE 35124753072 No Longer Active Robbie Busby MD Active CEFDINIR 300 MG ORAL CAPS Take 1 cap po bid x 10 days CEFDINIR 00261328900 No Longer Active Robbie Busby MD Active AMLODIPINE BESYLATE 10 MG TABS 1 tablet by mouth daily AMLODIPINE BESYLATE 45888059020 Active Robbie Busby MD Active CARVEDILOL 25 MG TABS 1 & 1/2 TAB po BID CARVEDILOL 86314096830 Active Robbie Busby MD Active VITAMIN D3 78552 UNIT CAPS 2 CAPS PO WEEKLY CHOLECALCIFEROL 51320957257 Active Erin Garsia APRN Active NEXIUM 40 MG CPDR 1 cap by mouth daily ESOMEPRAZOLE MAGNESIUM 80690209385 Active Robbie Busby MD Active PROTONIX 40 MG SOLR 1 po qday for acid reflux PANTOPRAZOLE SODIUM 71512100274 No Longer Active Gali Raida Active KEFLEX 500 MG CAP 1 po TID x 10 days CEPHALEXIN 07070665484 No Longer Active Robbie Busby MD Active FIORICET 50-300-40 MG ORAL CAPS take 1 tab po qday prn migraines. [id number] 10438408286 Active Robbie Busby MD Active TOPIRAMATE 50 MG ORAL TABS take 1 tab po BID for migraines. TOPIRAMATE 71119082356 Active Robbie Busby MD Active TEMAZEPAM 15 MG ORAL CAPS 1 TAB PO Q HS TEMAZEPAM 04962093118 Active Robbie Busby MD Active ALPRAZOLAM 2 MG ORAL TABS 1 TAB PO BID ALPRAZOLAM 20966515776 Active Robbie Busby MD Active FENOFIBRATE 145 MG TABS Take one by mouth daily FENOFIBRATE 10593599385 No Longer Active Robbie Busby MD Active SPIRONOLACTONE 50 MG TABS 1 tablet by mouth twice a day SPIRONOLACTONE 89008955655 No Longer Active Robbie Busby MD Active HYDRALAZINE HCL 25 MG TABS 1 tablet by mouth tid for hypertension HYDRALAZINE HCL 65805142103 No Longer Active Robbie Busby MD Active VIIBRYD 40 MG TABS take 1 tab po qday for depression. VILAZODONE HCL 99691639904 No Longer Active Robbie Busby MD Active TERBINAFINE HCL 250 MG TABS 1 tab po qday for foot infection 2014 TERBINAFINE HCL 98168429465 No Longer Active Robbie Busby MD Active GABAPENTIN 300 MG CAPS 1 po q hs for nerve pain GABAPENTIN 47405295017 Active Robbie Busby MD Active FLONASE 50 MCG/ACT SUSP 1 spray each nostril twice daily for allergies and runny nose FLUTICASONE PROPIONATE 33242067347 Active Robbie Busby MD Active CHERATUSSIN AC 100-10 MG/5ML ORAL SOLN 7.5 mL PO q 4-6 hrs PRN cough GUAIFENESIN-CODEINE 28232380241 No Longer Active Robbie Busby MD Active AZITHROMYCIN 250 MG ORAL TABS 2 tablets PO today---then, 1 tablet PO daily x 4 more days (and 1 optional refill) AZITHROMYCIN 18929202029 No Longer Active Robbie Busby MD Active NORVASC 10 MG TAB 1 tablet by mouth daily AMLODIPINE BESYLATE 49115571569 No Longer Active Alex ALVAREZ Active IMDUR 60 MG TAB CR take 1 tab po qday for blood pressure ISOSORBIDE MONONITRATE Active Robbie Busby MD Active ISOSORBIDE DINITRATE 30 MG TABS Take one by mouth daily ISOSORBIDE DINITRATE 22965590857 No Longer Active Robbie Busby MD Active VIIBRYD 40 MG TABS 1 TA B PO DAILY VILAZODONE HCL 17824627776 Active Robbie Busby MD Active LORATADINE 10 MG TABS 1 tablet by mouth daily for congestion and allergies. LORATADINE 20515694495 Active Robbie Busby MD Active ZITHROMAX 250 MG TAB 2 po today, then 1 po q days 2-5 AZITHROMYCIN 79996993137 No Longer Active Robbie Busby MD Active [id number]-6 0.3 MG/24HR PTWK apply 2 patches q week for HTN CLONIDINE HCL 23602411240 Active Robbie Busby MD Active NITROSTAT 0.4 MG SUBL PRN NITROGLYCERIN 18509260782 Active Robbie Busby MD Active DOXAZOSIN MESYLATE 4 MG TABS Take one by mouth daily DOXAZOSIN MESYLATE 40338320655 Active Erin Garsia INVENTORY AUDIT CLERK Active TOPROL XL 200 MG [id number]-HUN Take one by mouth daily METOPROLOL SUCCINATE 26186099729 Active Robbie Busby MD Active VENLAFAXINE HCL ER 150 MG [id number] Take one by mouth daily VENLAFAXINE HCL 73053182518 Active Robbie Busby MD Active LIPITOR 40 MG TABS Take one by mouth daily ATORVASTATIN CALCIUM 45423935848 Active Robbie Busby MD Active HYDROCHLOROTHIAZIDE TABS Take one by mouth daily HYDROCHLOROTHIAZIDE TABS HYDROCHLOROTHIAZIDE TABS Inactive BACTRIM DS 800-160 MG TAB 1 tab by mouth twice daily BACTRIM DS 800-160 MG TAB 439619 TRIMETHOPRIM-SULFAMETHOXAZOLE Inactive BETADINE 10 % EXT SOLN wash with solution to treat follicultis BETADINE 10 % EXT SOLN 1405638 POVIDONE-IODINE Inactive CLONIDINE HCL 0.2 MG ORAL TABS 1 TAB BY MOUTH EVERY 8 HOURS 12/29 CLONIDINE HCL 0.2 MG ORAL TABS 460257 CLONIDINE HCL Inactive HYDRALAZINE HCL 25 MG TABS 1 tablet by mouth tid for hypertension HYDRALAZINE HCL 25 MG TABS 261725 HYDRALAZINE HCL Inactive HYDRALAZINE HCL 50 MG ORAL TABS TWO BY MOUTH THREE TIMES DAILY HYDRALAZINE HCL 50 MG ORAL TABS 775066 HYDRALAZINE HCL Inactive ISOSORBIDE DINITRATE 30 MG TABS Take one by mouth daily ISOSORBIDE DINITRATE 30 MG TABS 311623 ISOSORBIDE DINITRATE Inactive KEFLEX 500 MG CAP 1 po TID x 10 days KEFLEX 500 MG CAP 894471 CEPHALEXIN Inactive NORVASC 10 MG TAB 1 tablet by mouth daily NORVASC 10 MG TAB 749226 AMLODIPINE BESYLATE Inactive NYSTATIN 130213 UNIT/ML M/T SUSP 5mL po QID x 10 days NYSTATIN 625286 UNIT/ML M/T SUSP 118930 NYSTATIN Inactive PREDNISONE 20 MG TAB 1 tablet twice daily for 2 days, then 1 tablet once daily for 2 days PREDNISONE 20 MG TAB 881809 PREDNISONE Inactive PREDNISONE 20 MG TAB take 3 tabs daily for 3 days, 2 tabs daily for 3 days, 1 tab daily for 3 days, 1/2 tab daily for 4 days PREDNISONE 20 MG TAB 316705 PREDNISONE Inactive SPIRONOLACTONE 25 MG TAB 4 tablets by mouth daily SPIRONOLACTONE 25 MG TAB 696529 SPIRONOLACTONE Inactive SPIRONOLACTONE 50 MG TABS 1 tablet by mouth twice a day SPIRONOLACTONE 50 MG TABS 573923 SPIRONOLACTONE Inactive MECLIZINE HCL 25 MG TAB one 4 times a day as needed for dizziness MECLIZINE HCL 25 MG TAB 403297 MECLIZINE HCL Inactive TERBINAFINE HCL 250 MG TABS 1 tab po qday for foot infection 2014 TERBINAFINE HCL 250 MG TABS 264571 TERBINAFINE HCL Inactive LEVAQUIN 500 MG TAB 1 tablet by mouth daily for 7 days LEVAQUIN 500 MG TAB 333439 LEVOFLOXACIN Inactive ZITHROMAX 250 MG TAB 2 po today, then 1 po q days 2-5 ZITHROMAX 250 MG TAB 7425324 AZITHROMYCIN Inactive AZITHROMYCIN 250 MG ORAL TABS 2 tablets PO today---then, 1 tablet PO daily x 4 more days (and 1 optional refill) AZITHROMYCIN 250 MG ORAL TABS 8531369 AZITHROMYCIN Inactive CEFDINIR 300 MG ORAL CAPS Take 1 cap po bid x 10 days CEFDINIR 300 MG ORAL CAPS 888540 CEFDINIR Inactive TRILEPTAL 150 MG ORAL TABS 1 TAB PO Q HS TRILEPTAL 150 MG ORAL TABS 549455 OXCARBAZEPINE Inactive PROTONIX 40 MG SOLR 1 po qday for acid reflux PROTONIX 40 MG SOLR 987702 PANTOPRAZOLE SODIUM Inactive HYDROCODONE-ACETAMINOPHEN 5-325 MG TABS 1 tab by mouth BID prn back pain 2013 HYDROCODONE-ACETAMINOPHEN 5-325 MG TABS 382948 HYDROCODONE -ACETAMINOPHEN Inactive FENOFIBRATE 145 MG TABS Take one by mouth daily FENOFIBRATE 145 MG TABS 104209 FENOFIBRATE Inactive LAMISIL 125 MG ORAL PACK 1 TAB PO DAILY LAMISIL 125 MG ORAL PACK TERBINAFINE HCL Inactive VIIBRYD 40 MG TABS take 1 tab po qday for depression. VIIBRYD 40 MG TABS VILAZODONE HCL Inactive CHERATUSSIN AC 100-10 MG/5ML ORAL SOLN 7.5 mL PO q 4-6 hrs PRN cough CHERATUSSIN AC 100-10 MG/5ML ORAL SOLN 106675 GUAIFENESIN- CODEINE Inactive Advance Directives Directive Description [...] % 11.0-15.0 platelet count 185 THOUSAND/UL 10*3/mm3 503-034 9264/04/14 mean platelet volume 10.9 fL 7.5-12.5 Lab Report: LIPID PANEL, TSH/899, T4, FREE/866 - Chemistry cholesterol, serum 220 mg/dL 110-493 3206/04/14 HDL cholesterol, serum 30 mg/dL > OR=40 triglyceride, serum, fasting 466 mg/dL <150 LDL cholesterol, serum SEE NOTE mg/dL (calc) mg/dL <130 cholesterol/HDL ratio, serum 7.3 (calc) < OR=5.0 Lab Report: MICROALB/CREAT W/RATIO - Chemistry albumin/creatinine ratio, urine < 30 mg/g mg/g{creat} 0-29 Lab Report: MICROALB/CREAT W/RATIO - Lab microalbumin, urine 80 0-19 Lab Report: VITAMIN D, 25-HYDROXY/93803 - Chemistry vitamin D 25-hydroxy, serum 23 ng/mL 30-100 Office Visit: Confusion, dizziness after fall - Basic LDL target level 130 mg/dL Office Visit: Confusion, dizziness after fall - Chemistry HDL cholesterol, serum, target level 40 mg/dL triglyceride, target level 150 mg/dL cholesterol, target level 200 mg/dL Encounters Code Encounter Date Provider Facility CPT-58981 Level 4 Est. Patient 11:56:16 CDT Erin Garsia [facility] CPT-10389 Level 3 Est. Patient 17:48:02 CDT Robbie Busby MD [facility] CPT-60221 Level 4 Est. Patient 12:00:49 LACE MACHINE OPERATOR Rober Rodríguez [facility] CPT-08039 Level 3 Est. Patient 09:16:37 CDT Robbie Busby MD [facility] CPT-31824 Level 3 Est. Patient 19:38:43 CDT Robbie Busby MD [facility] CPT-22041 Level 3 Est. Patient 11:53:38 CDT Robbie Busby MD [facility] CPT-49753 Level 4 Est. Patient 12:52:22 CDT Rober Rodríguez [facility] CPT-63498 Level 4 Est. Patient 22:55:17 CDT Robbie Busby MD [facility] CPT-03272 Level 3 Est. Patient 12:38:24 CDT Desmond Diaz DO [facility] CPT-09933 Level 4 Est. Patient 11:25:03 LACE MACHINE OPERATOR Robbie Busby MD [facility] CPT-09587 Level 4 Est. Patient 14:50:10 CDT Robbie Busby MD [facility] CPT-58922 Level 4 Est. Patient 23:30:43 CDT Robbie Busby MD [facility] CPT-44213 Level 4 Est. Patient 10:30:43 CDT Robbie Busby MD [facility] CPT-30751 Level 3 Est. Patient 17:08:12 CDT Alex Shaw [facility] CPT-27032 Level 4 Est. Patient 17:51:38 CDT Robbie Busby MD [facility] CPT-51557 Level 4 Est. Patient 14:00:21 CDT Robbie Busby MD [facility] CPT-92338 Level 4 Est. Patient 12:46:48 CDT Robbie Busby MD [facility] CPT-06589 Level 4 Est. Patient 13:34:33 CDT Robbie Busby MD [facility] CPT-54206 Level 4 Est. Patient 16:58:28 CDT Robbie Busby MD [facility] CPT-02339 Level 3 Est. Patient 19:36:53 CDT Alex Shaw [facility] CPT-36050 Level 3 Est. Patient 12:58:15 CDT Robbie Busby MD [facility] Procedures Code Procedure Name Date Entry Date Standard Description CPT-76607 First Vx - Ix admin for Medicare patients 16:32:53 CDT CPT-02668 Boostrix Intramuscular Suspension 5-2.5-18.5 16:32:53 CDT CPT-47038 TB Skin Test 11:42:28 CDT CPT-87975 Tdap 7yrs or > 11:42:28 CDT CPT-J0696 Rocephin 1000 mg (Ceftriaxone) 17:43:43 LACE MACHINE OPERATOR CPT-J1040 Depo Medrol 80 mg (Methyl Prednisolone Acetate) 17:43: 43 LACE MACHINE OPERATOR CPT-J1100 Decadron 8mg (Dexamethasone) 17:43:42 LACE MACHINE OPERATOR CPT-54188 Abx/Therapy Injection 17:43:42 LACE MACHINE OPERATOR CPT-64720 Abx/Therapy Injection 17:43:42 LACE MACHINE OPERATOR CPT-J1040 Depo Medrol 80 mg (Methyl Prednisolone Acetate) 09:43: 34 LACE MACHINE OPERATOR CPT-J1100 Decadron 8mg (Dexamethasone) 09:43:34 LACE MACHINE OPERATOR CPT-J0696 Rocephin 1gm Inj Solr 09:43:34 LACE MACHINE OPERATOR CPT-56144 Wound Culture - LAB USE ONLY 14:00:21 CDT CPT-I/D I/D Abscess 09:16:37 CDT CPT-60419 Venipuncture Draw Fee 15:20:23 CDT CPT-74241 Microalbumin - LAB USE ONLY 16:02:19 CDT CPT-60776 CBC - LAB USE ONLY 16:02:19 CDT CPT-89173 Venipuncture Draw Fee 16:02:19 CDT CPT-G0438 Initial Annual Wellness Exam 08:10:28 CDT CPT-11858 Venipuncture Draw Fee 13:07:17 CDT CPT-G0008 Administration of Influenza Virus Vaccine 16:09:59 CDT CPT-81695 Fluzone Quadrivalent Intramuscular Suspension 0.5 ML 16: 09:59 CDT CPT-22040 Spec Collection and Handling Fee 15:05:50 CDT
--- OUTSIDE RECORDS SUMMARY | 2018-04-18 13:38 | XMS REPORT | Clinical Summary ---
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 Acute upper respiratory infections of unspecified [...] 2 weeks for low testosterone TESTOSTERONE CYPIONATE 13624133182 Active Zulema Blank LPN Active CYCLOBENZAPRINE HCL 10 MG ORAL TABS 1 po TID PRN muscle spasm/pain for 10 days CYCLOBENZAPRINE HCL 40571953037 Active JONATHAN Moncada Active GUAIFENESIN 600 MG [id number] 1 tab po q am GUAIFENESIN 68026945975 Active Rober Rodríguez COAL HAULER OPERATOR Active FLUTICASONE PROPIONATE 50 MCG/ACT SUSP 2 sprays per nostril bid for 1 week, then 1 spray bid FLUTICASONE PROPIONATE 08538551341 Active Jishantel Rodríguez APRN Active HYDRALAZINE HCL 25 MG ORAL TABS Take 1 tab BID. HYDRALAZINE HCL 91213470609 Active Rober Rodríguez APRN Active VITAMIN D3 35551 UNIT ORAL TABS 2 po weekly CHOLECALCIFEROL 61993500651 Active JONATHAN Moncada Active OXYCODONE HCL ER 10 MG ORAL T12A 1 tab po 3 times qd. OXYCODONE HCL 72453078799 Active Robbie Busby MD Active NITROSTAT 0.4 MG SUBL PRN NITROGLYCERIN 46914070357 No Longer Active Robbie Busby MD Active LORATADINE 10 MG TABS 1 tablet by mouth daily for congestion and allergies. LORATADINE 07187261988 No Longer Active Robbie Busby MD Active FLONASE 50 MCG/ACT SUSP 1 spray each nostril twice daily for allergies and runny nose FLUTICASONE PROPIONATE 64411949453 No Longer Active Robbie Busby MD Active FIORICET 50-300-40 MG ORAL CAPS take 1 tab po qday prn migraines. [id number] 96708284953 No Longer Active Robbie Busby MD Active VITAMIN D3 75024 UNIT CAPS 2 CAPS PO WEEKLY CHOLECALCIFEROL 21569779491 No Longer Active Robbie Busby MD Active CYCLOBENZAPRINE HCL 10 MG TABS 1 tablet by mouth three times daily as needed for muscle spasm/pain for 10 days CYCLOBENZAPRINE HCL 44816836381 No Longer Active Robbie Busby MD Active PREDNISONE 20 MG TAB take 3 tabs daily for 3 days, 2 tabs daily for 3 days, 1 tab daily for 3 days, 1/2 tab daily for 4 days PREDNISONE 92326073138 No Longer Active Erin Garsia APRN Active CLONIDINE HCL 0.2 MG ORAL TABS 1 TAB BY MOUTH EVERY 8 HOURS 12/29 CLONIDINE HCL 63023024621 No Longer Active Erin Garsia APRN Active MECLIZINE HCL 25 MG TAB one 4 times a day as needed for dizziness MECLIZINE HCL 75938617197 No Longer Active Erin Garsia COAL HAULER OPERATOR Active SPIRONOLACTONE 25 MG TAB 4 tablets by mouth daily SPIRONOLACTONE 87378433782 No Longer Active Erin Garsia APRN Active LEVAQUIN 500 MG TAB 1 tablet by mouth daily for 7 days LEVOFLOXACIN 54813035102 No Longer Active Erin Garsia APRN Active BACTRIM DS 800-160 MG TAB 1 tab by mouth twice daily TRIMETHOPRIM-SULFAMETHOXAZOLE 76742720636 No Longer Active oRbbie Busby MD Active HYDRALAZINE HCL 50 MG ORAL TABS TWO BY MOUTH THREE TIMES DAILY HYDRALAZINE HCL 09692428926 No Longer Active Jillina Frazell 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 HAULER OPERATOR Active HYDROCODONE-ACETAMINOPHEN 5-325 MG TABS 1 tab by mouth BID prn back pain 2013 HYDROCODONE-ACETAMINOPHEN 31378464744 No Longer Active Jillina Frazell 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 HAULER OPERATOR Active HYDROCHLOROTHIAZIDE TABS Take one by mouth daily HYDROCHLOROTHIAZIDE TABS 34177050178 No Longer Active Jillina Frazell COAL HAULER OPERATOR Active LAMISIL 125 MG ORAL PACK 1 TAB PO DAILY TERBINAFINE HCL 57841214543 No Longer Active Jillina Frazell COAL HAULER OPERATOR Active TRILEPTAL 150 MG ORAL TABS 1 TAB PO Q HS OXCARBAZEPINE 34854727158 No Longer Active Jillina Frazell COAL HAULER OPERATOR Active BETADINE 10 % EXT SOLN wash with solution to treat follicultis POVIDONE-IODINE 94884699180 No Longer Active Jillina Frazell COAL HAULER OPERATOR Active NYSTATIN 073612 UNIT/ML M/T SUSP 5mL po QID x 10 days NYSTATIN 42939067810 No Longer Active Erin Garsia APRN Active PREDNISONE 20 MG TAB 1 tablet twice daily for 2 days, then 1 tablet once daily for 2 days PREDNISONE 42379004526 No Longer Active Robbie Busby MD Active CEFDINIR 300 MG ORAL CAPS Take 1 cap po bid x 10 days CEFDINIR 53894115288 No Longer Active Robbie Busby MD Active AMLODIPINE BESYLATE 10 MG TABS 1 tablet by mouth daily AMLODIPINE BESYLATE 01422308292 Active Robbie Busby MD Active CARVEDILOL 25 MG TABS 1 & 1/2 TAB po BID CARVEDILOL 83650614614 Active Robbie Busby MD Active NEXIUM 40 MG CPDR 1 cap by mouth daily ESOMEPRAZOLE MAGNESIUM 59002649428 Active Robbie Busby MD Active PROTONIX 40 MG SOLR 1 po qday for acid reflux PANTOPRAZOLE SODIUM 35434213190 No Longer Active Gali Raida Active KEFLEX 500 MG CAP 1 po TID x 10 days CEPHALEXIN 31697039791 No Longer Active Robbie Busby MD Active TOPIRAMATE 50 MG ORAL TABS take 1 tab po BID for migraines. TOPIRAMATE 67804984213 Active Robbie Busby MD Active TEMAZEPAM 15 MG ORAL CAPS 1 TAB PO Q HS TEMAZEPAM 20077418322 Active Robbie Busby MD Active ALPRAZOLAM 2 MG ORAL TABS 1 TAB PO BID ALPRAZOLAM 14565927599 Active Robbie Busby MD Active FENOFIBRATE 145 MG TABS Take one by mouth daily FENOFIBRATE 27523998197 No Longer Active Robbie Busby MD Active SPIRONOLACTONE 50 MG TABS 1 tablet by mouth twice a day SPIRONOLACTONE 58384006693 No Longer Active Robbie Busby MD Active HYDRALAZINE HCL 25 MG TABS 1 tablet by mouth tid for hypertension HYDRALAZINE HCL 76057838322 No Longer Active Robbie Busby MD Active VIIBRYD 40 MG TABS take 1 tab po qday for depression. VILAZODONE HCL 67019469118 No Longer Active Robbie Busby MD Active TERBINAFINE HCL 250 MG TABS 1 tab po qday for foot infection 2014 TERBINAFINE HCL 72260860359 No Longer Active Robbie Busby MD Active GABAPENTIN 300 MG CAPS 1 po q hs for nerve pain GABAPENTIN 82172417375 Active Robbie Busby MD Active CHERATUSSIN AC 100-10 MG/5ML ORAL SOLN 7.5 mL PO q 4-6 hrs PRN cough GUAIFENESIN-CODEINE 40201538963 No Longer Active Robbie Busby MD Active AZITHROMYCIN 250 MG ORAL TABS 2 tablets PO today---then, 1 tablet PO daily x 4 more days (and 1 optional refill) AZITHROMYCIN 04107965518 No Longer Active Robbie Busby MD Active NORVASC 10 MG TAB 1 tablet by mouth daily AMLODIPINE BESYLATE 97962287122 No Longer Active Alex ALVAREZ Active IMDUR 60 MG TAB CR take 1 tab po qday for blood pressure ISOSORBIDE MONONITRATE Active Robbie Busby MD Active ISOSORBIDE DINITRATE 30 MG TABS Take one by mouth daily ISOSORBIDE DINITRATE 18476852272 No Longer Active Robbie Busby MD Active VIIBRYD 40 MG TABS 1 TA B PO DAILY VILAZODONE HCL 73520043813 Active Robbie Busby MD Active ZITHROMAX 250 MG TAB 2 po today, then 1 po q days 2-5 AZITHROMYCIN 85000066006 No Longer Active Robbie Busby MD Active [id number]-5 0.3 MG/24HR PTWK apply 2 patches q week for HTN CLONIDINE HCL 60919571614 Active Robbie Busby MD Active DOXAZOSIN MESYLATE 4 MG TABS Take one by mouth daily DOXAZOSIN MESYLATE 40264720908 Active Robbie Busby MD Active TOPROL XL 200 MG [id number] Take one by mouth daily METOPROLOL SUCCINATE 68858619891 Active Robbie Busby MD Active VENLAFAXINE HCL ER 150 MG NZ62I-SHT Take one by mouth daily VENLAFAXINE HCL 93745880508 Active Robbie Busby MD Active LIPITOR 40 MG TABS Take one by mouth daily ATORVASTATIN CALCIUM 94728357421 Active Robbie Busby MD Active ISOSORBIDE DINITRATE 30 MG TABS Take one by mouth daily ISOSORBIDE DINITRATE 30 MG TABS 919979 ISOSORBIDE DINITRATE Inactive NORVASC 10 MG TAB 1 tablet by mouth daily NORVASC 10 MG TAB 974657 AMLODIPINE BESYLATE Inactive AZITHROMYCIN 250 MG ORAL TABS 2 tablets PO today---then, 1 tablet PO daily x 4 more days (and 1 optional refill) AZITHROMYCIN 250 MG ORAL TABS 0532476 AZITHROMYCIN Inactive CHERATUSSIN AC 100-10 MG/5ML ORAL SOLN 7.5 mL PO q 4-6 hrs PRN cough CHERATUSSIN AC 100-10 MG/5ML ORAL SOLN 291710 GUAIFENESIN- CODEINE Inactive VIIBRYD 40 MG TABS take 1 tab po qday for depression. VIIBRYD 40 MG TABS VILAZODONE HCL Inactive HYDRALAZINE HCL 25 MG TABS 1 tablet by mouth tid for hypertension HYDRALAZINE HCL 25 MG TABS 443048 HYDRALAZINE HCL Inactive SPIRONOLACTONE 50 MG TABS 1 tablet by mouth twice a day SPIRONOLACTONE 50 MG TABS 383522 SPIRONOLACTONE Inactive FENOFIBRATE 145 MG TABS Take one by mouth daily FENOFIBRATE 145 MG TABS 685472 FENOFIBRATE Inactive PROTONIX 40 MG SOLR 1 po qday for acid reflux PROTONIX 40 MG SOLR 518918 PANTOPRAZOLE SODIUM Inactive CEFDINIR 300 MG ORAL CAPS Take 1 cap po bid x 10 days CEFDINIR 300 MG ORAL CAPS 906926 CEFDINIR Inactive PREDNISONE 20 MG TAB 1 tablet twice daily for 2 days, then 1 tablet once daily for 2 days PREDNISONE 20 MG TAB 505961 PREDNISONE Inactive NYSTATIN 491608 UNIT/ML M/T SUSP 5mL po QID x 10 days NYSTATIN 672643 UNIT/ML M/T SUSP 211260 NYSTATIN Inactive BETADINE 10 % EXT SOLN wash with solution to treat follicultis BETADINE 10 % EXT SOLN 6966780 POVIDONE-IODINE Inactive TRILEPTAL 150 MG ORAL TABS 1 TAB PO Q HS TRILEPTAL 150 MG ORAL TABS 617853 OXCARBAZEPINE Inactive LAMISIL 125 MG ORAL PACK 1 TAB PO DAILY LAMISIL 125 MG ORAL PACK TERBINAFINE HCL Inactive HYDROCHLOROTHIAZIDE TABS Take one by mouth daily HYDROCHLOROTHIAZIDE TABS HYDROCHLOROTHIAZIDE TABS Inactive HYDROCODONE-ACETAMINOPHEN 5-325 MG TABS 1 tab by mouth BID prn back pain 2013 HYDROCODONE-ACETAMINOPHEN 5-325 MG TABS 626272 HYDROCODONE -ACETAMINOPHEN Inactive HYDRALAZINE HCL 50 MG ORAL TABS TWO BY MOUTH THREE TIMES DAILY HYDRALAZINE HCL 50 MG ORAL TABS 887353 HYDRALAZINE HCL Inactive LEVAQUIN 500 MG TAB 1 tablet by mouth daily for 7 days LEVAQUIN 500 MG TAB 026938 LEVOFLOXACIN Inactive SPIRONOLACTONE 25 MG TAB 4 tablets by mouth daily SPIRONOLACTONE 25 MG TAB 828767 SPIRONOLACTONE Inactive MECLIZINE HCL 25 MG TAB one 4 times a day as needed for dizziness MECLIZINE HCL 25 MG TAB 267912 MECLIZINE HCL Inactive CLONIDINE HCL 0.2 MG ORAL TABS 1 TAB BY MOUTH EVERY 8 HOURS 12/29 CLONIDINE HCL 0.2 MG ORAL TABS 310948 CLONIDINE HCL Inactive CYCLOBENZAPRINE HCL 10 MG TABS 1 tablet by mouth three times daily as needed for muscle spasm/pain for 10 days CYCLOBENZAPRINE HCL 10 MG TABS 427856 CYCLOBENZAPRINE HCL Inactive VITAMIN D3 92543 UNIT CAPS 2 CAPS PO WEEKLY VITAMIN D3 17490 UNIT CAPS CHOLECALCIFEROL Inactive FIORICET 50-300-40 MG ORAL CAPS take 1 tab po qday prn migraines. FIORICET 50-300-40 MG ORAL CAPS 621865 [id number] Inactive FLONASE 50 MCG/ACT SUSP 1 spray each nostril twice daily for allergies and runny nose FLONASE 50 MCG/ACT SUSP 9243058 FLUTICASONE PROPIONATE Inactive LORATADINE 10 MG TABS 1 tablet by mouth daily for congestion and allergies. LORATADINE 10 MG TABS 483413 LORATADINE Inactive NITROSTAT 0.4 MG SUBL PRN NITROSTAT 0.4 MG SUBL 648629 NITROGLYCERIN Inactive ZITHROMAX 250 MG TAB 2 po today, then 1 po q days 2-5 ZITHROMAX 250 MG TAB 0874525 AZITHROMYCIN Inactive TERBINAFINE HCL 250 MG TABS 1 tab po qday for foot infection 2014 TERBINAFINE HCL 250 MG TABS 842164 TERBINAFINE HCL Inactive KEFLEX 500 MG CAP 1 po TID x 10 days KEFLEX 500 MG CAP 539296 CEPHALEXIN Inactive BACTRIM DS 800-160 MG TAB 1 tab by mouth twice daily BACTRIM DS 800-160 MG TAB 634080 TRIMETHOPRIM-SULFAMETHOXAZOLE Inactive PREDNISONE 20 MG TAB take 3 tabs daily for 3 days, 2 tabs daily for 3 days, 1 tab daily for 3 days, 1/2 tab daily for 4 days PREDNISONE 20 MG TAB 604156 PREDNISONE Inactive Advance Directives Directive Description Start [...] AUTO - Chemistry sodium, serum 142 mmol/L 521-272 9586/07/17 carbon dioxide, venous blood 28.2 mmol/L 21.0-32.0 [...] % 11.0-15.0 platelet count 185 THOUSAND/UL 10*3/mm3 954-530 0521/04/14 mean platelet volume 10.9 fL 7.5-12.5 Lab Report: LIPID PANEL, TSH/899, T4, FREE/866 - Chemistry cholesterol, serum 220 mg/dL 894-592 2489/04/14 HDL cholesterol, serum 30 mg/dL > OR=40 triglyceride, serum, fasting 466 mg/dL <150 LDL cholesterol, serum SEE NOTE mg/dL (calc) mg/dL <130 cholesterol/HDL ratio, serum 7.3 (calc) < OR=5.0 Lab Report: MICROALB/CREAT W/RATIO - Chemistry albumin/creatinine ratio, urine < 30 mg/g mg/g{creat} 0-29 Lab Report: MICROALB/CREAT W/RATIO - Lab microalbumin, urine 80 0-19 Lab Report: VITAMIN D, 25-HYDROXY/17331 - Chemistry vitamin D 25-hydroxy, serum 25 ng/mL 30-100 Office Visit: Confusion, dizziness after fall - Basic LDL target level 130 mg/dL Office Visit: Confusion, dizziness after fall - Chemistry HDL cholesterol, serum, target level 40 mg/dL triglyceride, target level 150 mg/dL cholesterol, target level 200 mg/dL Encounters Code Encounter Date Provider Facility CPT-12049 Level 3 Est. Patient 09:00:37 CDT Rober Rodríguez [facility] [place] CPT-11108 Level 3 Est. Patient 16:07:10 CDT Robbie Busby MD [facility] CPT-36235 Level 4 Est. Patient 11:56:16 CDT Erin Garsia [facility] [place] CPT-83607 Level 3 Est. Patient 17:48:02 CDT Robbie Busby MD [facility] CPT-46024 Level 4 Est. 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 Patient 09:16:37 CDT Robbie Busby MD [facility]-05778 Level 3 Est. Patient 19:38:43 CDT Robbie Busby MD [facility] CPT-75541 Level 3 Est. Patient 11:53:38 CDT Robbie Busby MD [facility] CPT-73052 Level 4 Est. Patient 12:52:22 CDT Rober Rodríguez [facility] [place] CPT-21987 Level 4 Est. Patient 22:55:17 CDT Robbie Busby MD [facility] CPT-87586 Level 3 Est. Patient 12:38:24 CDT Desmond Diaz DO [facility] CPT-28085 Level 4 Est. Patient 11:25:03 CHIEF CONSTRUCTION INSPECTOR Robbie Busby MD [facility] CPT-79987 Level 4 Est. Patient 14:50:10 CDT Robbie Busby MD [facility] CPT-28093 Level 4 Est. Patient 23:30:43 CDT Robbie Busby MD [facility] CPT-36747 Level 4 Est. Patient 10:30:43 CDT Robbie Busby MD [facility] CPT-41151 Level 3 Est. Patient 17:08:12 CDT Alex ALVAREZ [facility] CPT-82501 Level 4 Est. Patient 17:51:38 CDT Robbie Busby MD [facility] CPT-76348 Level 4 Est. Patient 14:00:21 CDT Robbie Busby MD [facility] CPT-27634 Level 4 Est. Patient 12:46:48 CDT Robbie Busby MD [facility] CPT-11286 Level 4 Est. Patient 13:34:33 CDT Robbie Busby MD [facility] CPT-92467 Level 4 Est. Patient 16:58:28 CDT Robbie Busby MD [facility] CPT-70934 Level 3 Est. Patient 19:36:53 CDT Alex Shaw [facility] CPT-54994 Level 3 Est. Patient 12:58:15 CDT Robbie Busby MD [facility] Procedures Code Procedure Name Date Entry Date Standard Description CPT-J1071 Depo Testosterone 200mg 08:24:00 CDT CPT-36956 Abx/Therapy Injection 08:24:00 CDT CPT-23961 Venipuncture Draw Fee 14:39:06 CDT CPT-30878 Ribs unilateral 2V - XRAY USE ONLY 12:10:11 CDT CPT-50378 First Vx - Ix admin for Medicare patients 16:32:53 CDT CPT-86029 Boostrix Intramuscular Suspension 5-2.5-18.5 16:32:53 CDT CPT-52488 TB Skin Test 11:42:28 CDT CPT-37738 Tdap 7yrs or > 11:42:28 CDT CPT-J0696 Rocephin 1000 mg (Ceftriaxone) 17:43:43 CHIEF CONSTRUCTION INSPECTOR CPT-J1040 Depo Medrol 80 mg (Methyl Prednisolone Acetate) 17:43: 43 CHIEF CONSTRUCTION INSPECTOR CPT-J1100 Decadron 8mg (Dexamethasone) 17:43:42 CHIEF CONSTRUCTION INSPECTOR CPT-61761 Abx/Therapy Injection 17:43:42 CHIEF CONSTRUCTION INSPECTOR CPT-66847 Abx/Therapy Injection 17:43:42 CHIEF CONSTRUCTION INSPECTOR CPT-J1040 Depo Medrol 80 mg (Methyl Prednisolone Acetate) 09:43: 34 CHIEF CONSTRUCTION INSPECTOR CPT-J1100 Decadron 8mg (Dexamethasone) 09:43:34 CHIEF CONSTRUCTION INSPECTOR CPT-J0696 Rocephin 1gm Inj Solr 09:43:34 CHIEF CONSTRUCTION INSPECTOR CPT-21757 Wound Culture - LAB USE ONLY 14:00:21 CDT CPT-I/D I/D Abscess 09:16:37 CDT CPT-53121 Venipuncture Draw Fee 15:20:23 CDT CPT-29888 Microalbumin - LAB USE ONLY 16:02:19 CDT CPT-71260 CBC - LAB USE ONLY 16:02:19 CDT CPT-75789 Venipuncture Draw Fee 16:02:19 CDT CPT-G0438 Initial Annual Wellness Exam 08:10:28 CDT CPT-80031 Venipuncture Draw Fee 13:07:17 CDT CPT-G0008 Administration of Influenza Virus Vaccine 16:09:59 CDT CPT-55986 Fluzone Quadrivalent Intramuscular Suspension 0.5 ML 16: 09:59 CDT CPT-71548 Spec Collection and Handling Fee 15:05:50 CDT
--- OUTSIDE RECORDS SUMMARY | 2018-04-18 13:39 | XMS REPORT | Clinical Summary ---
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 Desmond Diaz DO Other malignant secondary hypertension Tachycardia 785.0 Active Rober Rodríguez VIDEO GAMES STORYWRITER Tachycardia, unspecified Insect bite, infected 919.5 Resolved Desmond Diaz DO Insect bite, nonvenomous, of other, multiple, and unspecified sites, infected Abscess, skin 682.9 Resolved Desmond Diaz DO Cellulitis and abscess of unspecified sites URI 465.9 Resolved Desmond Diaz DO Acute upper respiratory infections of unspecified site Hypertension 401.9 Active Rober Rodríguez VIDEO GAMES STORYWRITER Unspecified essential hypertension Sinusitis - acute 461.9 [...] Hypogonadism, low testosterone 257.2 Active Erin Mai VIDEO GAMES STORYWRITER Other testicular hypofunction Low back pain, chronic [...] 36.0-36.9, adult Sinusitis ICD-461.9 Inactive Emily Atwood COMMERCIAL FIELD INSPECTOR 2017 Low back pain, acute ICD-724.2 Inactive Emily Awtood COMMERCIAL FIELD INSPECTOR Low back pain, chronic ICD-724.2 Inactive Emily Atwood COMMERCIAL FIELD INSPECTOR Bronchitis, acute ICD-466.0 Inactive Emily Atwood COMMERCIAL FIELD INSPECTOR Onychomycosis, toenails ICD-110.1 Inactive Emily Atwood COMMERCIAL FIELD INSPECTOR Dizziness ICD-780.4 Inactive Emily Atwood COMMERCIAL FIELD INSPECTOR 2017 Folliculitis ICD-704.8 Inactive Emily Atwood COMMERCIAL FIELD INSPECTOR Pharyngitis-Acute ICD-462 Inactive Emily Atwood COMMERCIAL FIELD INSPECTOR Fatigue ICD-780.79 Inactive Emily Atwood COMMERCIAL FIELD INSPECTOR 09/20 Hypertension, secondary, malignant ICD-405.09 Inactive Emily Atwood COMMERCIAL FIELD INSPECTOR Insect bite, infected ICD-919.5 Inactive Emily Atwood COMMERCIAL FIELD INSPECTOR Abscess, skin ICD-682.9 Inactive Emily Atwood COMMERCIAL FIELD INSPECTOR URI ICD-465.9 Inactive Emily Atwood COMMERCIAL FIELD INSPECTOR Sinusitis - acute ICD-461.9 Inactive Emily Atwood COMMERCIAL FIELD INSPECTOR Acute confusion ICD-293.0 Inactive Emily Atwood COMMERCIAL FIELD INSPECTOR Headache ICD-784.0 Inactive Emily Atwood COMMERCIAL FIELD INSPECTOR 09/20 Back pain ICD-724.5 Inactive Emily Atwood COMMERCIAL FIELD INSPECTOR 2017 Rib pain, right sided ICD-786.50 Inactive Emily Atwood COMMERCIAL FIELD INSPECTOR Myalgias ICD-729.1 Inactive Emily Atwood COMMERCIAL FIELD INSPECTOR 09/20 URI ICD-465.9 Inactive Emily Atwood COMMERCIAL FIELD INSPECTOR Bronchitis-Acute ICD-466.0 Inactive Desmond Diaz DO Medication List Medication Instructions Start Date Stop Date Generic Name NDC Status Provider Patient Instruction MONTELUKAST SODIUM 10 MG ORAL TABLET 1 tab po daily for allergies MONTELUKAST SODIUM 73437408873 Active JONATHAN Moncada Active IMDUR 60 MG ORAL TABLET EXTENDED RELEASE 24 HOUR 1 po q day ISOSORBIDE MONONITRATE 99493515382 Active Emma Hernandez Active METOPROLOL SUCCINATE ER 200 MG ORAL TABLET EXTENDED RELEASE 24 HOUR take 1 tab po qday for high blood pressure and rapid pulse METOPROLOL SUCCINATE 11541912359 Active Robbie Busby MD Active [id number] 0.3 MG/24HR TRANSDERMAL PATCH WEEKLY apply 2 patches q week for HTN CLONIDINE HCL 20945031463 No Longer Active Robbie Busby MD Active IMDUR 60 MG ORAL TABLET EXTENDED RELEASE 24 HOUR take 1 tab po qday for blood pressure ISOSORBIDE MONONITRATE 76693701997 No Longer Active Robbie Busby MD Active TEMAZEPAM 15 MG ORAL CAPSULE 1 TAB PO Q HS TEMAZEPAM 16974900203 No Longer Active Robbie Busby MD Active TOPIRAMATE 50 MG ORAL TABLET 1 po BID for migraines TOPIRAMATE 20660823594 No Longer Active Robbie Busby MD Active CYCLOBENZAPRINE HCL 10 MG ORAL TABLET 1 tablet by mouth three times daily as needed for muscle spasm/pain CYCLOBENZAPRINE HCL 15143230339 No Longer Active Robbie Busby MD Active TOPROL XL 200 MG ORAL TABLET EXTENDED RELEASE 24 HOUR Take one by mouth daily METOPROLOL SUCCINATE 58239018872 No Longer Active Robbie Busby MD Active METFORMIN HCL 500 MG ORAL TABLET 1 tablet by mouth daily for diabetes type 2 METFORMIN HCL 33407096334 Active Robbie Busby MD Active SINGULAIR 10 MG ORAL TABLET 1 po qday for allergies. MONTELUKAST SODIUM 50675608068 No Longer Active Robbie Busby MD Active PREDNISONE 20 MG ORAL TABLET two tabs by mouth today, then one tab by mouth days two and three PREDNISONE 26562810666 No Longer Active Robbie Busby MD Active AZITHROMYCIN 250 MG ORAL TABLET 2 po qd x 1 day, then 1 po qd x 4 days 09/20 AZITHROMYCIN 37380009891 No Longer Active Desmond Diaz DO Active TOPIRAMATE 50 MG ORAL TABLET take 1 tab po BID for migraines. TOPIRAMATE 27409574653 No Longer Active Desmond Diaz DO Active CYCLOBENZAPRINE HCL 10 MG ORAL TABLET 1 po TID PRN muscle spasm/pain for 10 days CYCLOBENZAPRINE HCL 73495096482 No Longer Active Desmond Diaz DO Active GUAIFENESIN ER 600 MG ORAL TABLET EXTENDED RELEASE 12 HOUR 1 tab po q am 2016 GUAIFENESIN 05235387167 No Longer Active Robbie Busby MD Active DIVALPROEX SODIUM ER 500 MG ORAL TABLET EXTENDED RELEASE 24 HOUR Once daily DIVALPROEX SODIUM 75322430670 Active Robbie Busby MD Active DEPO-TESTOSTERONE 200 MG/ML INTRAMUSCULAR SOLUTION 1 IM Injections every 2 weeks for low testosterone TESTOSTERONE CYPIONATE 27559860997 Active Zulema Blank LPN Active FLUTICASONE PROPIONATE 50 MCG/ACT NASAL SUSPENSION 2 sprays per nostril bid for 1 week, then 1 spray bid FLUTICASONE PROPIONATE 27097970093 Active Rober Rodríguez VIDEO GAMES STORYWRITER Active HYDRALAZINE HCL 25 MG ORAL TABLET Take 1 tab BID. HYDRALAZINE HCL 31137641314 Active Rober Rodríguez VIDEO GAMES STORYWRITER Active VITAMIN D3 49782 UNIT ORAL TABLET 2 po weekly CHOLECALCIFEROL 14258420090 Active Robbie Busby MD Active OXYCODONE HCL ER 10 MG ORAL TABLET ER 12 HOUR ABUSE-DETERRENT 1 tab po 3 times qd. OXYCODONE HCL 81586546349 Active Robbie Busby MD Active NITROSTAT 0.4 MG SUBLINGUAL TABLET SUBLINGUAL PRN NITROGLYCERIN 66521365522 No Longer Active Robbie Busby MD Active LORATADINE 10 MG ORAL TABLET 1 tablet by mouth daily for congestion and allergies. LORATADINE 22939611944 No Longer Active Robbie Busby MD Active FLONASE 50 MCG/ACT NASAL SUSPENSION 1 spray each nostril twice daily for allergies and runny nose FLUTICASONE PROPIONATE 72397126219 No Longer Active Robbie Busby MD Active FIORICET 50-300-40 MG ORAL CAPSULE take 1 tab po qday prn migraines. [id number] 68001737957 No Longer Active Robbie Busby MD Active VITAMIN D3 05962 UNIT ORAL CAPSULE 2 CAPS PO WEEKLY CHOLECALCIFEROL 23526637130 No Longer Active Robbie Busby MD Active CYCLOBENZAPRINE HCL 10 MG ORAL TABLET 1 tablet by mouth three times daily as needed for muscle spasm/pain for 10 days CYCLOBENZAPRINE HCL 11839141276 No Longer Active Robbie Busby MD Active PREDNISONE 20 MG ORAL TABLET take 3 tabs daily for 3 days, 2 tabs daily for 3 days, 1 tab daily for 3 days, 1/2 tab daily for 4 days PREDNISONE 19295763337 No Longer Active Erin Arell VIDEO GAMES STORYWRITER Active CLONIDINE HCL 0.2 MG ORAL TABLET 1 TAB BY MOUTH EVERY 8 HOURS CLONIDINE HCL 78147288868 No Longer Active Erin Arell VIDEO GAMES STORYWRITER Active MECLIZINE HCL 25 MG ORAL TABLET one 4 times a day as needed for dizziness MECLIZINE HCL 76143312001 No Longer Active Erin Arell VIDEO GAMES STORYWRITER Active SPIRONOLACTONE 25 MG ORAL TABLET 4 tablets by mouth daily SPIRONOLACTONE 71586866696 No Longer Active Erin Arell VIDEO GAMES STORYWRITER Active LEVAQUIN 500 MG ORAL TABLET 1 tablet by mouth daily for 7 days LEVOFLOXACIN 65938774944 No Longer Active Erin Arell VIDEO GAMES STORYWRITER Active BACTRIM DS 800-160 MG ORAL TABLET 1 tab by mouth twice daily 2015 TRIMETHOPRIM-SULFAMETHOXAZOLE 22087694341 No Longer Active Robbie Busby MD Active HYDRALAZINE HCL 50 MG ORAL TABLET TWO BY MOUTH THREE TIMES DAILY HYDRALAZINE HCL 73764574537 No Longer Active Jillina Frazell VIDEO GAMES STORYWRITER Active HYDROCODONE-ACETAMINOPHEN 5-325 MG ORAL TABLET 1 tab by mouth BID prn back pain HYDROCODONE-ACETAMINOPHEN 30519411342 No Longer Active Jillina Frazell VIDEO GAMES STORYWRITER Active HYDROCHLOROTHIAZIDE TABLET Take one by mouth daily HYDROCHLOROTHIAZIDE TABS 47206068333 No Longer Active Jillina Frazell VIDEO GAMES STORYWRITER Active LAMISIL 125 MG ORAL PACKET 1 TAB PO DAILY TERBINAFINE HCL 12064336669 No Longer Active Jillina Frazell VIDEO GAMES STORYWRITER Active TRILEPTAL 150 MG ORAL TABLET 1 TAB PO Q HS OXCARBAZEPINE 47014802560 No Longer Active Jillina Frazell VIDEO GAMES STORYWRITER Active BETADINE 10 % EXTERNAL SOLUTION wash with solution to treat follicultis 07/29 POVIDONE-IODINE 18770820160 No Longer Active Rober Rodríguez APRN Active NYSTATIN 005199 UNIT/ML MOUTH/THROAT SUSPENSION 5mL po QID x 10 days NYSTATIN 87516070730 No Longer Active Erin Mai APRN Active PREDNISONE 20 MG ORAL TABLET 1 tablet twice daily for 2 days, then 1 tablet once daily for 2 days PREDNISONE 90996455463 No Longer Active Robbie Busby MD Active CEFDINIR 300 MG ORAL CAPSULE Take 1 cap po bid x 10 days CEFDINIR 89861683785 No Longer Active Robbie Busby MD Active AMLODIPINE BESYLATE 10 MG ORAL TABLET 1 tablet by mouth daily AMLODIPINE BESYLATE 67189867397 Active Robbie Busby MD Active CARVEDILOL 25 MG ORAL TABLET 1 & 1/2 TAB po BID CARVEDILOL 33416596167 Active Robbie Busby MD Active NEXIUM 40 MG ORAL CAPSULE DELAYED RELEASE 1 cap by mouth daily ESOMEPRAZOLE MAGNESIUM 05727571899 Active Robbie Busby MD Active PROTONIX 40 MG INTRAVENOUS SOLUTION RECONSTITUTED 1 po qday for acid reflux PANTOPRAZOLE SODIUM 75983105221 No Longer Active Gali Raida Active KEFLEX 500 MG ORAL CAPSULE 1 po TID x 10 days CEPHALEXIN 59378691509 No Longer Active Robbie Busby MD Active ALPRAZOLAM 2 MG ORAL TABLET 1 TAB PO BID ALPRAZOLAM 83049436849 Active Robbie Busby MD Active FENOFIBRATE 145 MG ORAL TABLET Take one by mouth daily FENOFIBRATE 57483605743 No Longer Active Robbie Busby MD Active SPIRONOLACTONE 50 MG ORAL TABLET 1 tablet by mouth twice a day SPIRONOLACTONE 41622492639 No Longer Active Robbie Busby MD Active HYDRALAZINE HCL 25 MG ORAL TABLET 1 tablet by mouth tid for hypertension 2013 HYDRALAZINE HCL 70855984002 No Longer Active Robbie Busby MD Active VIIBRYD 40 MG ORAL TABLET take 1 tab po qday for depression. 2014 VILAZODONE HCL 33246836031 No Longer Active Robbie Busby MD Active TERBINAFINE HCL 250 MG ORAL TABLET 1 tab po qday for foot infection TERBINAFINE HCL 06311714603 No Longer Active Robbie Busby MD Active GABAPENTIN 300 MG ORAL CAPSULE 1 po q hs for nerve pain GABAPENTIN 62253883733 Active Robbie Busby MD Active CHERATUSSIN AC 100-10 MG/5ML ORAL SOLUTION 7.5 mL PO q 4-6 hrs PRN cough 2014 GUAIFENESIN-CODEINE 05039118031 No Longer Active Robbie Busby MD Active AZITHROMYCIN 250 MG ORAL TABLET 2 tablets PO today---then, 1 tablet PO daily x 4 more days (and 1 optional refill) AZITHROMYCIN 41364816684 No Longer Active Robbie Busby MD Active NORVASC 10 MG ORAL TABLET 1 tablet by mouth daily AMLODIPINE BESYLATE 32254459930 No Longer Active Alex ALVAREZ Active ISOSORBIDE DINITRATE 30 MG ORAL TABLET Take one by mouth daily ISOSORBIDE DINITRATE 90512737576 No Longer Active Robbie Busby MD Active VIIBRYD 40 MG ORAL TABLET 1 TA B PO DAILY VILAZODONE HCL 56236436110 Active Robbie Busby MD Active ZITHROMAX 250 MG ORAL TABLET 2 po today, then 1 po q days 2-5 AZITHROMYCIN 77039200876 No Longer Active Robbie Busby MD Active DOXAZOSIN MESYLATE 4 MG ORAL TABLET Take one by mouth daily DOXAZOSIN MESYLATE 43669666080 Active Robbie Busby MD Active VENLAFAXINE HCL ER 150 MG ORAL TABLET EXTENDED RELEASE 24 HOUR Take one by mouth daily VENLAFAXINE HCL 37746026770 Active Robbie Busby MD Active LIPITOR 40 MG ORAL TABLET Take one by mouth daily ATORVASTATIN CALCIUM 12508891991 Active Robbie Busby MD Active ISOSORBIDE DINITRATE 30 MG ORAL TABLET Take one by mouth daily ISOSORBIDE DINITRATE 30 MG ORAL TABLET 339106 ISOSORBIDE DINITRATE Inactive NORVASC 10 MG ORAL TABLET 1 tablet by mouth daily NORVASC 10 MG ORAL TABLET 162920 AMLODIPINE BESYLATE Inactive AZITHROMYCIN 250 MG ORAL TABLET 2 tablets PO today---then, 1 tablet PO daily x 4 more days (and 1 optional refill) AZITHROMYCIN 250 MG ORAL TABLET 226877 AZITHROMYCIN Inactive CHERATUSSIN AC 100-10 MG/5ML ORAL SOLUTION 7.5 mL PO q 4-6 hrs PRN cough 2014 CHERATUSSIN AC 100-10 MG/5ML ORAL SOLUTION 693579 GUAIFENESIN-CODEINE Inactive VIIBRYD 40 MG ORAL TABLET take 1 tab po qday for depression. 2014 VIIBRYD 40 MG ORAL TABLET VILAZODONE HCL Inactive HYDRALAZINE HCL 25 MG ORAL TABLET 1 tablet by mouth tid for hypertension 2013 HYDRALAZINE HCL 25 MG ORAL TABLET 452538 HYDRALAZINE HCL Inactive SPIRONOLACTONE 50 MG ORAL TABLET 1 tablet by mouth twice a day SPIRONOLACTONE 50 MG ORAL TABLET 313405 SPIRONOLACTONE Inactive FENOFIBRATE 145 MG ORAL TABLET Take one by mouth daily FENOFIBRATE 145 MG ORAL TABLET 680639 FENOFIBRATE Inactive PROTONIX 40 MG INTRAVENOUS SOLUTION RECONSTITUTED 1 po qday for acid reflux PROTONIX 40 MG INTRAVENOUS SOLUTION RECONSTITUTED 061071 PANTOPRAZOLE SODIUM Inactive CEFDINIR 300 MG ORAL CAPSULE Take 1 cap po bid x 10 days CEFDINIR 300 MG ORAL CAPSULE 715804 CEFDINIR Inactive PREDNISONE 20 MG ORAL TABLET 1 tablet twice daily for 2 days, then 1 tablet once daily for 2 days PREDNISONE 20 MG ORAL TABLET 592617 PREDNISONE Inactive NYSTATIN 805309 UNIT/ML MOUTH/THROAT SUSPENSION 5mL po QID x 10 days NYSTATIN 290749 UNIT/ML MOUTH/THROAT SUSPENSION 024781 NYSTATIN Inactive BETADINE 10 % EXTERNAL SOLUTION wash with solution to treat follicultis 07/29 BETADINE 10 % EXTERNAL SOLUTION 0609682 POVIDONE-IODINE Inactive TRILEPTAL 150 MG ORAL TABLET 1 TAB PO Q HS TRILEPTAL 150 MG ORAL TABLET 098404 OXCARBAZEPINE Inactive LAMISIL 125 MG ORAL PACKET 1 TAB PO DAILY LAMISIL 125 MG ORAL PACKET TERBINAFINE HCL Inactive HYDROCHLOROTHIAZIDE TABLET Take one by mouth daily HYDROCHLOROTHIAZIDE TABLET HYDROCHLOROTHIAZIDE TABS Inactive HYDROCODONE-ACETAMINOPHEN 5-325 MG ORAL TABLET 1 tab by mouth BID prn back pain HYDROCODONE-ACETAMINOPHEN 5-325 MG ORAL TABLET 011789 HYDROCODONE-ACETAMINOPHEN Inactive HYDRALAZINE HCL 50 MG ORAL TABLET TWO BY MOUTH THREE TIMES DAILY HYDRALAZINE HCL 50 MG ORAL TABLET 602776 HYDRALAZINE HCL Inactive LEVAQUIN 500 MG ORAL TABLET 1 tablet by mouth daily for 7 days LEVAQUIN 500 MG ORAL TABLET 520482 LEVOFLOXACIN Inactive SPIRONOLACTONE 25 MG ORAL TABLET 4 tablets by mouth daily SPIRONOLACTONE 25 MG ORAL TABLET 393066 SPIRONOLACTONE Inactive MECLIZINE HCL 25 MG ORAL TABLET one 4 times a day as needed for dizziness MECLIZINE HCL 25 MG ORAL TABLET 276522 MECLIZINE HCL Inactive CLONIDINE HCL 0.2 MG ORAL TABLET 1 TAB BY MOUTH EVERY 8 HOURS CLONIDINE HCL 0.2 MG ORAL TABLET 247794 CLONIDINE HCL Inactive CYCLOBENZAPRINE HCL 10 MG ORAL TABLET 1 tablet by mouth three times daily as needed for muscle spasm/pain for 10 days CYCLOBENZAPRINE HCL 10 MG ORAL TABLET 097436 CYCLOBENZAPRINE HCL Inactive VITAMIN D3 87845 UNIT ORAL CAPSULE 2 CAPS PO WEEKLY VITAMIN D3 11270 UNIT ORAL CAPSULE CHOLECALCIFEROL Inactive FIORICET 50-300-40 MG ORAL CAPSULE take 1 tab po qday prn migraines. FIORICET 50-300-40 MG ORAL CAPSULE 232731 BUTALBITAL-APAP- CAFFEINE Inactive FLONASE 50 MCG/ACT NASAL SUSPENSION 1 spray each nostril twice daily for allergies and runny nose FLONASE 50 MCG/ACT NASAL SUSPENSION 4395915 FLUTICASONE PROPIONATE Inactive LORATADINE 10 MG ORAL TABLET 1 tablet by mouth daily for congestion and allergies. LORATADINE 10 MG ORAL TABLET 211457 LORATADINE Inactive NITROSTAT 0.4 MG SUBLINGUAL TABLET SUBLINGUAL PRN NITROSTAT 0.4 MG SUBLINGUAL TABLET SUBLINGUAL 397214 NITROGLYCERIN Inactive GUAIFENESIN ER 600 MG ORAL TABLET EXTENDED RELEASE 12 HOUR 1 tab po q am 2016 GUAIFENESIN ER 600 MG ORAL TABLET EXTENDED RELEASE 12 HOUR GUAIFENESIN Inactive CYCLOBENZAPRINE HCL 10 MG ORAL TABLET 1 po TID PRN muscle spasm/pain for 10 days CYCLOBENZAPRINE HCL 10 MG ORAL TABLET 950033 CYCLOBENZAPRINE HCL Inactive TOPIRAMATE 50 MG ORAL TABLET take 1 tab po BID for migraines. TOPIRAMATE 50 MG ORAL TABLET 662838 TOPIRAMATE Inactive PREDNISONE 20 MG ORAL TABLET two tabs by mouth today, then one tab by mouth days two and three PREDNISONE 20 MG ORAL TABLET 048801 PREDNISONE Inactive TOPROL XL 200 MG ORAL TABLET EXTENDED RELEASE 24 HOUR Take one by mouth daily TOPROL XL 200 MG ORAL TABLET EXTENDED RELEASE 24 HOUR METOPROLOL SUCCINATE Inactive CYCLOBENZAPRINE HCL 10 MG ORAL TABLET 1 tablet by mouth three times daily as needed for muscle spasm/pain CYCLOBENZAPRINE HCL 10 MG ORAL TABLET 739565 CYCLOBENZAPRINE HCL Inactive TOPIRAMATE 50 MG ORAL TABLET 1 po BID for migraines TOPIRAMATE 50 MG ORAL TABLET 896841 TOPIRAMATE Inactive TEMAZEPAM 15 MG ORAL CAPSULE 1 TAB PO Q HS TEMAZEPAM 15 MG ORAL CAPSULE 079773 TEMAZEPAM Inactive IMDUR 60 MG ORAL TABLET EXTENDED RELEASE 24 HOUR take 1 tab po qday for blood pressure IMDUR 60 MG ORAL TABLET EXTENDED RELEASE 24 HOUR ISOSORBIDE MONONITRATE Inactive [id number]-1 0.3 MG/24HR TRANSDERMAL PATCH WEEKLY apply 2 patches q week for HTN [id number]-6 0.3 MG/24HR TRANSDERMAL PATCH WEEKLY 413525 CLONIDINE HCL Inactive ZITHROMAX 250 MG ORAL TABLET 2 po today, then 1 po q days 2-5 ZITHROMAX 250 MG ORAL TABLET 667888 AZITHROMYCIN Inactive TERBINAFINE HCL 250 MG ORAL TABLET 1 tab po qday for foot infection TERBINAFINE HCL 250 MG ORAL TABLET 173926 TERBINAFINE HCL Inactive KEFLEX 500 MG ORAL CAPSULE 1 po TID x 10 days KEFLEX 500 MG ORAL CAPSULE 902014 CEPHALEXIN Inactive BACTRIM DS 800-160 MG ORAL TABLET 1 tab by mouth twice daily 2015 BACTRIM DS 800-160 MG ORAL TABLET 953050 TRIMETHOPRIM- SULFAMETHOXAZOLE Inactive PREDNISONE 20 MG ORAL TABLET take 3 tabs daily for 3 days, 2 tabs daily for 3 days, 1 tab daily for 3 days, 1/2 tab daily for 4 days PREDNISONE 20 MG ORAL TABLET 211981 PREDNISONE Inactive AZITHROMYCIN 250 MG ORAL TABLET 2 po qd x 1 day, then 1 po qd x 4 days 09/20 AZITHROMYCIN 250 MG ORAL TABLET 409939 AZITHROMYCIN Inactive SINGULAIR 10 MG ORAL TABLET 1 po qday for allergies. SINGULAIR 10 MG ORAL TABLET 928517 MONTELUKAST SODIUM Inactive Advance Directives Directive Description [...] AUTO - Chemistry sodium, serum 142 mmol/L 558-879 7787/07/17 carbon dioxide, venous blood 28.2 mmol/L 21.0-32.0 [...] Panel - Chemistry sodium, serum 141 mmol/L 097-037 8494/02/13 carbon dioxide, venous blood 23.9 mmol/L 21.0-32.0 [...] 6.9 % 4.3-6.0 sodium, serum 139 mmol/L 838-540 5686/01/04 potassium, serum 3.9 mmol/L 3.5-5.2 chloride, serum [...] 1.80 ng/mL 0.00-4.00 Lab Report: VITAMIN D, 25-HYDROXY/43056 - Chemistry vitamin D 25-hydroxy, serum 25 ng/mL 30-100 Encounters Code Encounter Date Provider Facility CPT-29950 Level 3 Est. Patient 16:04:17 CDT Robbie Busby MD [facility] CPT-37684 Level 4 Est. Patient 09:50:01 INTERRELATED SPECIAL EDUCATION TEACHER Robbie Busby MD [facility] CPT-82851 Level 4 Est. Patient 09:42:08 INTERRELATED SPECIAL EDUCATION TEACHER Robbie Busby MD [facility] CPT-07436 Level 4 Est. Patient 13:07:39 INTERRELATED SPECIAL EDUCATION TEACHER Robbie Busby MD [facility] CPT-99280 Level 4 Est. Patient 15:23:44 INTERRELATED SPECIAL EDUCATION TEACHER Desmond Diaz DO [facility] CPT-40263 Level 3 Est. Patient 15:40:49 CDT Robbie Busby MD [facility] CPT-65591 Level 4 Est. Patient 15:18:19 CDT Robbie Busby MD [facility] CPT-96526 Level 3 Est. Patient 09:00:37 CDT Rober Rodolfoneha [facility] CPT-96561 Level 3 Est. Patient 16:07:10 CDT Robbie Busby MD [facility] CPT-99936 Level 4 Est. Patient 11:56:16 CDT Erin Miguelzane [facility] CPT-98142 Level 3 Est. Patient 17:48:02 CDT Robbie Busby MD [facility] CPT-90558 Level 4 Est. Patient 12:00:49 INTERRELATED SPECIAL EDUCATION TEACHER Rober Rodríguez [facility] CPT-09973 Level 3 Est. Patient 09:16:37 CDT Robbie Busby MD [facility] CPT-80461 Level 3 Est. Patient 19:38:43 CDT Robbie Busby MD [facility] CPT-26734 Level 3 Est. Patient 11:53:38 CDT Robbie Busby MD [facility] CPT-96681 Level 4 Est. Patient 12:52:22 CDT Rober Rodríguez [facility] CPT-32617 Level 4 Est. Patient 22:55:17 CDT Robbie Busby MD [facility] CPT-00261 Level 3 Est. Patient 12:38:24 CDT Desmond Diaz DO [facility] CPT-80158 Level 4 Est. Patient 11:25:03 INTERRELATED SPECIAL EDUCATION TEACHER Robbie Busby MD [facility] CPT-38686 Level 4 Est. Patient 14:50:10 CDT Robbie Busby MD [facility] CPT-72504 Level 4 Est. Patient 23:30:43 CDT Robbie Busby MD [facility] CPT-17098 Level 4 Est. Patient 10:30:43 CDT Robbie Busby MD [facility] CPT-44884 Level 3 Est. Patient 17:08:12 CDT Alex ALVAREZ [facility] CPT-90779 Level 4 Est. Patient 17:51:38 CDT Robbie Busby MD [facility] CPT-67971 Level 4 Est. Patient 14:00:21 CDT Robbie Busby MD [facility] CPT-95728 Level 4 Est. Patient 12:46:48 CDT Robbie Busby MD [facility] CPT-12323 Level 4 Est. Patient 13:34:33 CDT Robbie Busby MD [facility] CPT-02577 Level 4 Est. Patient 16:58:28 CDT Robbie Busby MD [facility] CPT-13351 Level 3 Est. Patient 19:36:53 CDT Alex Shaw [facility] CPT-25399 Level 3 Est. Patient 12:58:15 CDT Robbie Busby MD [facility] Procedures Code Procedure Name Date Entry Date Standard Description CPT-J1100 Decadron 8mg (Dexamethasone) 16:04:17 CDT CPT-J1040 Depo Medrol 80 mg (Methyl Prednisolone Acetate) 16:04: 17 CDT CPT-J1071 Depo Testosterone 200mg 08:56:46 CDT CPT-16185 Abx/Therapy Injection 08:56:45 CDT CPT-J1071 Depo Testosterone 200mg 08:26:27 CDT CPT-94176 Abx/Therapy Injection 08:26:27 CDT CPT-J1071 Depo Testosterone 200mg 10:27:10 CDT CPT-33165 Abx/Therapy Injection 10:27:10 CDT CPT-J1071 Depo Testosterone 200mg 16:10:29 INTERRELATED SPECIAL EDUCATION TEACHER CPT-37755 Abx/Therapy Injection 16:10:29 INTERRELATED SPECIAL EDUCATION TEACHER CPT-J1071 Depo Testosterone 200mg 16:13:47 INTERRELATED SPECIAL EDUCATION TEACHER CPT-09129 Abx/Therapy Injection 16:13:46 INTERRELATED SPECIAL EDUCATION TEACHER CPT-J1071 Depo Testosterone 200mg 15:33:58 INTERRELATED SPECIAL EDUCATION TEACHER CPT-60616 Abx/Therapy Injection 15:33:58 INTERRELATED SPECIAL EDUCATION TEACHER CPT-J1071 Depo Testosterone 200mg 09:38:36 INTERRELATED SPECIAL EDUCATION TEACHER CPT-00923 Abx/Therapy Injection 09:38:36 INTERRELATED SPECIAL EDUCATION TEACHER CPT-J1071 Depo Testosterone 200mg 10:22:56 INTERRELATED SPECIAL EDUCATION TEACHER CPT-09396 Abx/Therapy Injection 10:22:56 INTERRELATED SPECIAL EDUCATION TEACHER CPT-J1071 Depo Testosterone 200mg 15:40:23 CDT CPT-03506 Abx/Therapy Injection 15:40:23 CDT CPT-J1071 Depo Testosterone 200mg 14:20:43 CDT CPT-46256 Abx/Therapy Injection 14:20:43 CDT CPT-J1071 Depo Testosterone 200mg 14:17:22 CDT CPT-59126 Abx/Therapy Injection 14:17:22 CDT CPT-J1071 Depo Testosterone 200mg 09:03:53 CDT CPT-69630 Abx/Therapy Injection 09:03:53 CDT CPT-G0439 Subsequent Annual Wellness Exam 16:47:44 CDT CPT-J1071 Depo Testosterone 200mg 09:06:28 CDT CPT-10569 Abx/Therapy Injection 09:06:28 CDT CPT-J1071 Depo Testosterone 200mg 08:30:01 CDT CPT-26251 Abx/Therapy Injection 08:30:01 CDT CPT-J1071 Depo Testosterone 200mg 08:24:00 CDT CPT-59286 Abx/Therapy Injection 08:24:00 CDT CPT-75215 Venipuncture Draw Fee 14:39:06 CDT CPT-86747 Ribs unilateral 2V - XRAY USE ONLY 12:10:11 CDT CPT-48502 First Vx - Ix admin for Medicare patients 16:32:53 CDT CPT-44311 Boostrix Intramuscular Suspension 5-2.5-18.5 16:32:53 CDT CPT-25117 TB Skin Test 11:42:28 CDT CPT-39476 Tdap 7yrs or > 11:42:28 CDT CPT-J0696 Rocephin 1000 mg (Ceftriaxone) 17:43:43 INTERRELATED SPECIAL EDUCATION TEACHER CPT-J1040 Depo Medrol 80 mg (Methyl Prednisolone Acetate) 17:43: 43 INTERRELATED SPECIAL EDUCATION TEACHER CPT-J1100 Decadron 8mg (Dexamethasone) 17:43:42 INTERRELATED [employer]UCATION TE[employer]ER CPT-15106 Abx/Therapy Injection 17:43:42 INTERRELATED [employer] EDUCATION TEACHER CPT-87248 Abx/Therapy Injection 17:43:42 INTERRELATED SPECIAL EDUCATION TEACHER CPT-J1040 Depo Medrol 80 mg (Methyl Prednisolone Acetate) 09:43: 34 INTERRELATED [employer] EDUCATION TEACHER CPT-J1100 Decadron 8mg (Dexamethasone) 09:43:34 INTERRELATED SPECIAL EDUCATION TEACHER CPT-J0696 Rocephin 1gm 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
--- OUTSIDE RECORDS SUMMARY | 2018-04-18 13:41 | XMS REPORT | Clinical Summary ---
Author Author Admin, [facility] Organization [facility] Address Unknown Phone Unavailable Allergies, Adverse [...] Unspecified vitamin D deficiency Myalgias 729.1 Active Roebr Rodríguez APRN Myalgia and myositis, unspecified URI 465.9 Active Rober Rodríguez APRN Acute upper respiratory infections of unspecified site Hypogonadism, low testosterone 257.2 Active Erin Garsia APRN Other testicular hypofunction Medication List Medication Instructions Start Date Stop Date Generic Name NDC Status Provider Patient Instruction DEPO-TESTOSTERONE 200 MG/ML IM SOLN 1 IM Injections every 2 weeks for low testosterone TESTOSTERONE CYPIONATE 20864440089 Active Zulema Blank LPN Active CYCLOBENZAPRINE HCL 10 MG ORAL TABS 1 po TID PRN muscle spasm/pain for 10 days CYCLOBENZAPRINE HCL 93711031651 Active JONATHAN Moncada Active GUAIFENESIN 600 MG [id number] 1 tab po q am GUAIFENESIN 85378258744 Active Jillina Frazelariana GONZALEZN Active FLUTICASONE PROPIONATE 50 MCG/ACT SUSP 2 sprays per nostril bid for 1 week, then 1 spray bid FLUTICASONE PROPIONATE 53041625790 Active Jillina Anne GONZALEZN Active HYDRALAZINE HCL 25 MG ORAL TABS Take 1 tab BID. HYDRALAZINE HCL 59969014914 Active Jillina Anne GONZALEZN Active VITAMIN D3 20432 UNIT ORAL TABS 2 po weekly CHOLECALCIFEROL 22533726451 Active Robbie Busby MD Active OXYCODONE HCL ER 10 MG ORAL T12A 1 tab po 3 times qd. OXYCODONE HCL 12242101850 Active Robbie Busby MD Active NITROSTAT 0.4 MG SUBL PRN NITROGLYCERIN 18972849573 No Longer Active Robbie Busby MD Active LORATADINE 10 MG TABS 1 tablet by mouth daily for congestion and allergies. LORATADINE 43147262241 No Longer Active Robbie Busby MD Active FLONASE 50 MCG/ACT SUSP 1 spray each nostril twice daily for allergies and runny nose FLUTICASONE PROPIONATE 52421883698 No Longer Active Robbie Busby MD Active FIORICET 50-300-40 MG ORAL CAPS take 1 tab po qday prn migraines. [id number] 20231177439 No Longer Active Robbie Busby MD Active VITAMIN D3 63276 UNIT CAPS 2 CAPS PO WEEKLY CHOLECALCIFEROL 91975047516 No Longer Active Robbie Busby MD Active CYCLOBENZAPRINE HCL 10 MG TABS 1 tablet by mouth three times daily as needed for muscle spasm/pain for 10 days CYCLOBENZAPRINE HCL 67143878308 No Longer Active Robbie Busby MD Active PREDNISONE 20 MG TAB take 3 tabs daily for 3 days, 2 tabs daily for 3 days, 1 tab daily for 3 days, 1/2 tab daily for 4 days PREDNISONE 33745860415 No Longer Active Erin Garsia APRN Active CLONIDINE HCL 0.2 MG ORAL TABS 1 TAB BY MOUTH EVERY 8 HOURS 12/29 CLONIDINE HCL 75168129587 No Longer Active Erin Garsia APRN Active MECLIZINE HCL 25 MG TAB one 4 times a day as needed for dizziness MECLIZINE HCL 77598644901 No Longer Active Erin Garsia APRN Active SPIRONOLACTONE 25 MG TAB 4 tablets by mouth daily SPIRONOLACTONE 15684560838 No Longer Active Erin Garsia APRN Active LEVAQUIN 500 MG TAB 1 tablet by mouth daily for 7 days LEVOFLOXACIN 36396890240 No Longer Active Erin Garsia APRN Active BACTRIM DS 800-160 MG TAB 1 tab by mouth twice daily TRIMETHOPRIM-SULFAMETHOXAZOLE 24743637968 No Longer Active Robbie Busby MD Active HYDRALAZINE HCL 50 MG ORAL TABS TWO BY MOUTH THREE TIMES DAILY HYDRALAZINE HCL 57644002988 No Longer Active Andrellina Anne GONZALEZN Active HYDROCODONE-ACETAMINOPHEN 5-325 MG TABS 1 tab by mouth BID prn back pain 2013 HYDROCODONE-ACETAMINOPHEN 80235984620 No Longer Active 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 HYDROCHLOROTHIAZIDE TABS Take one by mouth daily HYDROCHLOROTHIAZIDE TABS 39828123256 No Longer Active 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 LAMISIL 125 MG ORAL PACK 1 TAB PO DAILY TERBINAFINE HCL 60644510573 No Longer Active 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 TRILEPTAL 150 MG ORAL TABS 1 TAB PO Q HS OXCARBAZEPINE 83652951495 No Longer Active 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 BETADINE 10 % EXT SOLN wash with solution to treat follicultis POVIDONE-IODINE 99871937729 No Longer Active 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 NYSTATIN 246440 UNIT/ML M/T SUSP 5mL po QID x 10 days NYSTATIN 37434957679 No Longer Active Erin Garsia APRN Active PREDNISONE 20 MG TAB 1 tablet twice daily for 2 days, then 1 tablet once daily for 2 days PREDNISONE 12063168886 No Longer Active Robbie Busby MD Active CEFDINIR 300 MG ORAL CAPS Take 1 cap po bid x 10 days CEFDINIR 46848967669 No Longer Active Robbie Busby MD Active AMLODIPINE BESYLATE 10 MG TABS 1 tablet by mouth daily AMLODIPINE BESYLATE 39064422374 Active Robbie Busby MD Active CARVEDILOL 25 MG TABS 1 & 1/2 TAB po BID CARVEDILOL 80696743252 Active Robbie Busby MD Active NEXIUM 40 MG CPDR 1 cap by mouth daily ESOMEPRAZOLE MAGNESIUM 91949906487 Active Robbie Busby MD Active PROTONIX 40 MG SOLR 1 po qday for acid reflux PANTOPRAZOLE SODIUM 11686657869 No Longer Active Gali Raida Active KEFLEX 500 MG CAP 1 po TID x 10 days CEPHALEXIN 00764618545 No Longer Active Robbie Bubsy MD Active TOPIRAMATE 50 MG ORAL TABS take 1 tab po BID for migraines. TOPIRAMATE 72930059458 Active Robbie Busby MD Active TEMAZEPAM 15 MG ORAL CAPS 1 TAB PO Q HS TEMAZEPAM 82056871830 Active Robbie Busby MD Active ALPRAZOLAM 2 MG ORAL TABS 1 TAB PO BID ALPRAZOLAM 04725272520 Active Robbie Busby MD Active FENOFIBRATE 145 MG TABS Take one by mouth daily FENOFIBRATE 95130719956 No Longer Active Robbie Busby MD Active SPIRONOLACTONE 50 MG TABS 1 tablet by mouth twice a day SPIRONOLACTONE 20078554665 No Longer Active Robbie Busby MD Active HYDRALAZINE HCL 25 MG TABS 1 tablet by mouth tid for hypertension HYDRALAZINE HCL 73873530257 No Longer Active Robbie Busby MD Active VIIBRYD 40 MG TABS take 1 tab po qday for depression. VILAZODONE HCL 29877360038 No Longer Active Robbie Busby MD Active TERBINAFINE HCL 250 MG TABS 1 tab po qday for foot infection 2014 TERBINAFINE HCL 28155657632 No Longer Active Robbie Busby MD Active GABAPENTIN 300 MG CAPS 1 po q hs for nerve pain GABAPENTIN 52713496281 Active Robbie Busby MD Active CHERATUSSIN AC 100-10 MG/5ML ORAL SOLN 7.5 mL PO q 4-6 hrs PRN cough GUAIFENESIN-CODEINE 85108081161 No Longer Active Robbie Busby MD Active AZITHROMYCIN 250 MG ORAL TABS 2 tablets PO today---then, 1 tablet PO daily x 4 more days (and 1 optional refill) AZITHROMYCIN 37524870895 No Longer Active Robbie Busby MD Active NORVASC 10 MG TAB 1 tablet by mouth daily AMLODIPINE BESYLATE 63798501730 No Longer Active Alex ALVAREZ Active IMDUR 60 MG TAB CR take 1 tab po qday for blood pressure ISOSORBIDE MONONITRATE Active Robbie Busby MD Active ISOSORBIDE DINITRATE 30 MG TABS Take one by mouth daily ISOSORBIDE DINITRATE 10048577287 No Longer Active Robbie Busby MD Active VIIBRYD 40 MG TABS 1 TA B PO DAILY VILAZODONE HCL 84804014006 Active Robbie Busby MD Active ZITHROMAX 250 MG TAB 2 po today, then 1 po q days 2-5 AZITHROMYCIN 34319317075 No Longer Active Robbie Busby MD Active [id number] 0.3 MG/24HR PTWK apply 2 patches q week for HTN CLONIDINE HCL 97253440114 Active Robbie Busby MD Active DOXAZOSIN MESYLATE 4 MG TABS Take one by mouth daily DOXAZOSIN MESYLATE 06259412493 Active Robbie Busby MD Active TOPROL XL 200 MG [id number] Take one by mouth daily METOPROLOL SUCCINATE 52081814732 Active Robbie Busby MD Active VENLAFAXINE HCL ER 150 MG [id number]-[id number] Take one by mouth daily VENLAFAXINE HCL 60247020708 Active Robbie Busby MD Active LIPITOR 40 MG TABS Take one by mouth daily ATORVASTATIN CALCIUM 43737510143 Active Robbie Busby MD Active ISOSORBIDE DINITRATE 30 MG TABS Take one by mouth daily ISOSORBIDE DINITRATE 30 MG TABS 908207 ISOSORBIDE DINITRATE Inactive NORVASC 10 MG TAB 1 tablet by mouth daily NORVASC 10 MG TAB 317170 AMLODIPINE BESYLATE Inactive AZITHROMYCIN 250 MG ORAL TABS 2 tablets PO today---then, 1 tablet PO daily x 4 more days (and 1 optional refill) AZITHROMYCIN 250 MG ORAL TABS 4751299 AZITHROMYCIN Inactive CHERATUSSIN AC 100-10 MG/5ML ORAL SOLN 7.5 mL PO q 4-6 hrs PRN cough CHERATUSSIN AC 100-10 MG/5ML ORAL SOLN 330567 GUAIFENESIN- CODEINE Inactive VIIBRYD 40 MG TABS take 1 tab po qday for depression. VIIBRYD 40 MG TABS VILAZODONE HCL Inactive HYDRALAZINE HCL 25 MG TABS 1 tablet by mouth tid for hypertension HYDRALAZINE HCL 25 MG TABS 927630 HYDRALAZINE HCL Inactive SPIRONOLACTONE 50 MG TABS 1 tablet by mouth twice a day SPIRONOLACTONE 50 MG TABS 787128 SPIRONOLACTONE Inactive FENOFIBRATE 145 MG TABS Take one by mouth daily FENOFIBRATE 145 MG TABS 763909 FENOFIBRATE Inactive PROTONIX 40 MG SOLR 1 po qday for acid reflux PROTONIX 40 MG SOLR 706983 PANTOPRAZOLE SODIUM Inactive CEFDINIR 300 MG ORAL CAPS Take 1 cap po bid x 10 days CEFDINIR 300 MG ORAL CAPS 964210 CEFDINIR Inactive PREDNISONE 20 MG TAB 1 tablet twice daily for 2 days, then 1 tablet once daily for 2 days PREDNISONE 20 MG TAB 135113 PREDNISONE Inactive NYSTATIN 312625 UNIT/ML M/T SUSP 5mL po QID x 10 days NYSTATIN 956170 UNIT/ML M/T SUSP 314306 NYSTATIN Inactive BETADINE 10 % EXT SOLN wash with solution to treat follicultis BETADINE 10 % EXT SOLN 3591349 POVIDONE-IODINE Inactive TRILEPTAL 150 MG ORAL TABS 1 TAB PO Q HS TRILEPTAL 150 MG ORAL TABS 955333 OXCARBAZEPINE Inactive LAMISIL 125 MG ORAL PACK 1 TAB PO DAILY LAMISIL 125 MG ORAL PACK TERBINAFINE HCL Inactive HYDROCHLOROTHIAZIDE TABS Take one by mouth daily HYDROCHLOROTHIAZIDE TABS HYDROCHLOROTHIAZIDE TABS Inactive HYDROCODONE-ACETAMINOPHEN 5-325 MG TABS 1 tab by mouth BID prn back pain 2013 HYDROCODONE-ACETAMINOPHEN 5-325 MG TABS 955800 HYDROCODONE -ACETAMINOPHEN Inactive HYDRALAZINE HCL 50 MG ORAL TABS TWO BY MOUTH THREE TIMES DAILY HYDRALAZINE HCL 50 MG ORAL TABS 736601 HYDRALAZINE HCL Inactive LEVAQUIN 500 MG TAB 1 tablet by mouth daily for 7 days LEVAQUIN 500 MG TAB 450066 LEVOFLOXACIN Inactive SPIRONOLACTONE 25 MG TAB 4 tablets by mouth daily SPIRONOLACTONE 25 MG TAB 116267 SPIRONOLACTONE Inactive MECLIZINE HCL 25 MG TAB one 4 times a day as needed for dizziness MECLIZINE HCL 25 MG TAB 389160 MECLIZINE HCL Inactive CLONIDINE HCL 0.2 MG ORAL TABS 1 TAB BY MOUTH EVERY 8 HOURS 12/29 CLONIDINE HCL 0.2 MG ORAL TABS 212482 CLONIDINE HCL Inactive CYCLOBENZAPRINE HCL 10 MG TABS 1 tablet by mouth three times daily as needed for muscle spasm/pain for 10 days CYCLOBENZAPRINE HCL 10 MG TABS 651112 CYCLOBENZAPRINE HCL Inactive VITAMIN D3 12253 UNIT CAPS 2 CAPS PO WEEKLY VITAMIN D3 75582 UNIT CAPS CHOLECALCIFEROL Inactive FIORICET 50-300-40 MG ORAL CAPS take 1 tab po qday prn migraines. FIORICET 50-300-40 MG ORAL CAPS 563434 [id number] Inactive FLONASE 50 MCG/ACT SUSP 1 spray each nostril twice daily for allergies and runny nose FLONASE 50 MCG/ACT SUSP 5236287 FLUTICASONE PROPIONATE Inactive LORATADINE 10 MG TABS 1 tablet by mouth daily for congestion and allergies. LORATADINE 10 MG TABS 276398 LORATADINE Inactive NITROSTAT 0.4 MG SUBL PRN NITROSTAT 0.4 MG SUBL 986478 NITROGLYCERIN Inactive ZITHROMAX 250 MG TAB 2 po today, then 1 po q days 2-5 ZITHROMAX 250 MG TAB 2143523 AZITHROMYCIN Inactive TERBINAFINE HCL 250 MG TABS 1 tab po qday for foot infection 2014 TERBINAFINE HCL 250 MG TABS 135730 TERBINAFINE HCL Inactive KEFLEX 500 MG CAP 1 po TID x 10 days KEFLEX 500 MG CAP 519135 CEPHALEXIN Inactive BACTRIM DS 800-160 MG TAB 1 tab by mouth twice daily BACTRIM DS 800-160 MG TAB 007955 TRIMETHOPRIM-SULFAMETHOXAZOLE Inactive PREDNISONE 20 MG TAB take 3 tabs daily for 3 days, 2 tabs daily for 3 days, 1 tab daily for 3 days, 1/2 tab daily for 4 days PREDNISONE 20 MG TAB 755531 PREDNISONE Inactive Advance Directives Directive Description Start [...] AUTO - Chemistry sodium, serum 142 mmol/L 207-204 5628/07/17 carbon dioxide, venous blood 28.2 mmol/L 21.0-32.0 [...] % 11.0-15.0 platelet count 185 THOUSAND/UL 10*3/mm3 722-854 9363/04/14 mean platelet volume 10.9 fL 7.5-12.5 Lab Report: LIPID PANEL, TSH/899, T4, FREE/866 - Chemistry cholesterol, serum 220 mg/dL 779-332 2645/04/14 HDL cholesterol, serum 30 mg/dL > OR=40 [...] 1.80 ng/mL 0.00-4.00 Lab Report: VITAMIN D, 25-HYDROXY/27065 - Chemistry vitamin D 25-hydroxy, serum 25 ng/mL 30-100 Office Visit: Confusion, dizziness after fall - Basic LDL target level 130 mg/dL Office Visit: Confusion, dizziness after fall - Chemistry HDL cholesterol, serum, target level 40 mg/dL triglyceride, target level 150 mg/dL cholesterol, target level 200 mg/dL Encounters Code Encounter Date Provider Facility CPT-09668 Level 4 Est. Patient 15:18:19 CDT Robbie Busby MD [facility] CPT-74550 Level 3 Est. Patient 09:00:37 CDT Rober Rodríguez [facility] CPT-19823 Level 3 Est. Patient 16:07:10 CDT Robbie Busby MD [facility] CPT-21017 Level 4 Est. Patient 11:56:16 CDT Erin Garsia [facility] CPT-56903 Level 3 Est. Patient 17:48:02 CDT Robbie Busby MD [facility] CPT-31712 Level 4 Est. 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 Patient 09:16:37 CDT Robbie Busby MD [facility] CPT-86898 Level 3 Est. Patient 19:38:43 CDT Robbie Busby MD [facility] CPT-90582 Level 3 Est. Patient 11:53:38 CDT Robbie Busby MD [facility] CPT-02546 Level 4 Est. Patient 12:52:22 CDT Rober Rodríguez APRN [facility] CPT-44216 Level 4 Est. Patient 22:55:17 CDT Robbie Bubsy MD [facility] CPT-64097 Level 3 Est. Patient 12:38:24 CDT Desmond Diaz DO [facility] CPT-05983 Level 4 Est. Patient 11:25:03 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 Robbie Busby MD [facility] CPT-32204 Level 4 Est. Patient 14:50:10 CDT Robbie Busby MD [facility] CPT-26395 Level 4 Est. Patient 23:30:43 CDT Robbie Busby MD [facility] CPT-55432 Level 4 Est. Patient 10:30:43 CDT Robbie Busby MD [facility] CPT-02270 Level 3 Est. Patient 17:08:12 CDT Alex ALVAREZ [facility] CPT-06245 Level 4 Est. Patient 17:51:38 CDT Robbie Busby MD [facility] CPT-68256 Level 4 Est. Patient 14:00:21 CDT Robbie Busby MD [facility] CPT-55460 Level 4 Est. Patient 12:46:48 CDT Robbie Busby MD [facility] CPT-84632 Level 4 Est. Patient 13:34:33 CDT Robbie Busby MD [facility] CPT-26699 Level 4 Est. Patient 16:58:28 CDT Robbie Busby MD [facility] CPT-26166 Level 3 Est. Patient 19:36:53 CDT Alex ALVAREZ [facility] CPT-88245 Level 3 Est. Patient 12:58:15 CDT Robbie Busby MD [facility] Procedures Code Procedure Name Date Entry Date Standard Description CPT-G0439 [facility] Annual Wellness Exam 16:47:44 CDT CPT-J1071 Depo Testosterone 200mg 09:06:28 CDT CPT-20875 Abx/Therapy Injection 09:06:28 CDT CPT-J1071 Depo Testosterone 200mg 08:30:01 CDT CPT-60526 Abx/Therapy Injection 08:30:01 CDT CPT-J1071 Depo Testosterone 200mg 08:24:00 CDT CPT-28218 Abx/Therapy Injection 08:24:00 CDT CPT-72855 Venipuncture Draw Fee 14:39:06 CDT CPT-92145 Ribs unilateral 2V - XRAY USE ONLY 12:10:11 CDT CPT-76274 First Vx - Ix admin for Medicare patients 16:32:53 CDT CPT-44599 Boostrix Intramuscular Suspension 5-2.5-18.5 16:32:53 CDT CPT-59376 TB Skin Test 11:42:28 CDT CPT-19269 Tdap 7yrs or > 11:42:28 CDT CPT-J0696 Rocephin 1000 mg (Ceftriaxone) 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 CPT-J1040 Depo Medrol 80 mg (Methyl Prednisolone Acetate) 17:43: 43 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 CPT-J1100 Decadron 8mg (Dexamethasone) 17:43:42 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 CPT-49188 Abx/Therapy Injection 17:43:42 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 CPT-76229 Abx/Therapy Injection 17:43:42 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 CPT-J1040 Depo Medrol 80 mg (Methyl Prednisolone Acetate) 09:43: 34 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 CPT-J1100 Decadron 8mg (Dexamethasone) 09:43:34 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 CPT-J0696 Rocephin 1gm Inj Solr 09:43:34 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
--- OUTSIDE RECORDS SUMMARY | 2018-04-18 13:42 | XMS REPORT | Clinical Summary ---
Author Author Admin, AKUA Organization [employer] Address Unknown Phone Unavailable Allergies, Adverse Reactions, [...] 2 weeks for low testosterone TESTOSTERONE CYPIONATE 68036017837 Active Zulema Blank LPN Active CYCLOBENZAPRINE HCL 10 MG ORAL TABS 1 po TID PRN muscle spasm/pain for 10 days CYCLOBENZAPRINE HCL 53894939125 Active JONATHAN Moncada Active GUAIFENESIN 600 MG [id number] 1 tab po q am GUAIFENESIN 69458740547 Active Rober Rodríguez [employer] Active FLUTICASONE PROPIONATE 50 MCG/ACT SUSP 2 sprays per nostril bid for 1 week, then 1 spray bid FLUTICASONE PROPIONATE 47669719726 Active Jillina Frazelariana GONZALEZN Active HYDRALAZINE HCL 25 MG ORAL TABS Take 1 tab BID. HYDRALAZINE HCL 95927276445 Active Jillina Anne GONZALEZN Active VITAMIN D3 20597 UNIT ORAL TABS 2 po weekly CHOLECALCIFEROL 39136714287 Active Robbie Busby MD Active OXYCODONE HCL ER 10 MG ORAL T12A 1 tab po 3 times qd. OXYCODONE HCL 89673586352 Active Robbie Busby MD Active NITROSTAT 0.4 MG SUBL PRN NITROGLYCERIN 37409411408 No Longer Active Robbie Busby MD Active LORATADINE 10 MG TABS 1 tablet by mouth daily for congestion and allergies. LORATADINE 09138778127 No Longer Active Robbie Busby MD Active FLONASE 50 MCG/ACT SUSP 1 spray each nostril twice daily for allergies and runny nose FLUTICASONE PROPIONATE 88527009243 No Longer Active Robbie Busby MD Active FIORICET 50-300-40 MG ORAL CAPS take 1 tab po qday prn migraines. [id number] 51474576254 No Longer Active Robbie Busby MD Active VITAMIN D3 51543 UNIT CAPS 2 CAPS PO WEEKLY CHOLECALCIFEROL 84800649924 No Longer Active Robbie Busby MD Active CYCLOBENZAPRINE HCL 10 MG TABS 1 tablet by mouth three times daily as needed for muscle spasm/pain for 10 days CYCLOBENZAPRINE HCL 70832273363 No Longer Active Robbie Busby MD Active PREDNISONE 20 MG TAB take 3 tabs daily for 3 days, 2 tabs daily for 3 days, 1 tab daily for 3 days, 1/2 tab daily for 4 days PREDNISONE 46336572473 No Longer Active Erin Garsia APRN Active CLONIDINE HCL 0.2 MG ORAL TABS 1 TAB BY MOUTH EVERY 8 HOURS 12/29 CLONIDINE HCL 83070242391 No Longer Active Erin Garsia APRN Active MECLIZINE HCL 25 MG TAB one 4 times a day as needed for dizziness MECLIZINE HCL 03900699266 No Longer Active Erin Garsia APRN Active SPIRONOLACTONE 25 MG TAB 4 tablets by mouth daily SPIRONOLACTONE 95143498349 No Longer Active Erin Garsia APRN Active LEVAQUIN 500 MG TAB 1 tablet by mouth daily for 7 days LEVOFLOXACIN 31135157576 No Longer Active Erin Garsia APRN Active BACTRIM DS 800-160 MG TAB 1 tab by mouth twice daily TRIMETHOPRIM-SULFAMETHOXAZOLE 68020701180 No Longer Active Robbie Busby MD Active HYDRALAZINE HCL 50 MG ORAL TABS TWO BY MOUTH THREE TIMES DAILY HYDRALAZINE HCL 62957104616 No Longer Active Jillina Frazell [employer] Active HYDROCODONE-ACETAMINOPHEN 5-325 MG TABS 1 tab by mouth BID prn back pain 2013 HYDROCODONE-ACETAMINOPHEN 07711575053 No Longer Active Jillina Frazell [employer] Active HYDROCHLOROTHIAZIDE TABS Take one by mouth daily HYDROCHLOROTHIAZIDE TABS 64468353577 No Longer Active Jillina Frazell [employer] Active LAMISIL 125 MG ORAL PACK 1 TAB PO DAILY TERBINAFINE HCL 91906928118 No Longer Active Jillina Frazell [employer] Active TRILEPTAL 150 MG ORAL TABS 1 TAB PO Q HS OXCARBAZEPINE 49612098593 No Longer Active Jillina Frazell [employer] Active BETADINE 10 % EXT SOLN wash with solution to treat follicultis POVIDONE-IODINE 86079279566 No Longer Active Jillina Frazell [employer] Active NYSTATIN 277947 UNIT/ML M/T SUSP 5mL po QID x 10 days NYSTATIN 09603995337 No Longer Active Erin Ady [employer] Active PREDNISONE 20 MG TAB 1 tablet twice daily for 2 days, then 1 tablet once daily for 2 days PREDNISONE 41210113712 No Longer Active Robbie Busby MD Active CEFDINIR 300 MG ORAL CAPS Take 1 cap po bid x 10 days CEFDINIR 10381655892 No Longer Active Robbie Busby MD Active AMLODIPINE BESYLATE 10 MG TABS 1 tablet by mouth daily AMLODIPINE BESYLATE 70158209363 Active Robbie Busby MD Active CARVEDILOL 25 MG TABS 1 & 1/2 TAB po BID CARVEDILOL 42704194108 Active Robbie Busby MD Active NEXIUM 40 MG CPDR 1 cap by mouth daily ESOMEPRAZOLE MAGNESIUM 51729523307 Active Robbie Busby MD Active PROTONIX 40 MG SOLR 1 po qday for acid reflux PANTOPRAZOLE SODIUM 18821634912 No Longer Active Gali Raida Active KEFLEX 500 MG CAP 1 po TID x 10 days CEPHALEXIN 59323727824 No Longer Active Robbie Busby MD Active TOPIRAMATE 50 MG ORAL TABS take 1 tab po BID for migraines. TOPIRAMATE 09190206364 Active Robbie Busby MD Active TEMAZEPAM 15 MG ORAL CAPS 1 TAB PO Q HS TEMAZEPAM 57283003212 Active Robbie Busby MD Active ALPRAZOLAM 2 MG ORAL TABS 1 TAB PO BID ALPRAZOLAM 14902966590 Active Robbie Busby MD Active FENOFIBRATE 145 MG TABS Take one by mouth daily FENOFIBRATE 98449220630 No Longer Active Robbie Busby MD Active SPIRONOLACTONE 50 MG TABS 1 tablet by mouth twice a day SPIRONOLACTONE 28491470080 No Longer Active Robbie Busby MD Active HYDRALAZINE HCL 25 MG TABS 1 tablet by mouth tid for hypertension HYDRALAZINE HCL 14164439017 No Longer Active Robbie Busby MD Active VIIBRYD 40 MG TABS take 1 tab po qday for depression. VILAZODONE HCL 29366636110 No Longer Active Robbie Busby MD Active TERBINAFINE HCL 250 MG TABS 1 tab po qday for foot infection 2014 TERBINAFINE HCL 85865969656 No Longer Active Robbie Busby MD Active GABAPENTIN 300 MG CAPS 1 po q hs for nerve pain GABAPENTIN 25257681160 Active Robbie Busby MD Active CHERATUSSIN AC 100-10 MG/5ML ORAL SOLN 7.5 mL PO q 4-6 hrs PRN cough GUAIFENESIN-CODEINE 10450964678 No Longer Active Robbie Busby MD Active AZITHROMYCIN 250 MG ORAL TABS 2 tablets PO today---then, 1 tablet PO daily x 4 more days (and 1 optional refill) AZITHROMYCIN 73153339906 No Longer Active Robbie Busby MD Active NORVASC 10 MG TAB 1 tablet by mouth daily AMLODIPINE BESYLATE 45317339444 No Longer Active Alex ALVAREZ Active IMDUR 60 MG TAB CR take 1 tab po qday for blood pressure ISOSORBIDE MONONITRATE Active Robbie Busby MD Active ISOSORBIDE DINITRATE 30 MG TABS Take one by mouth daily ISOSORBIDE DINITRATE 03836576678 No Longer Active Robbie Busby MD Active VIIBRYD 40 MG TABS 1 TA B PO DAILY VILAZODONE HCL 35397000350 Active Robbie Busby MD Active ZITHROMAX 250 MG TAB 2 po today, then 1 po q days 2-5 AZITHROMYCIN 94088852842 No Longer Active Robbie Busby MD Active [id number] 0.3 MG/24HR PTWK apply 2 patches q week for HTN CLONIDINE HCL 78871026593 Active Robbie Busby MD Active DOXAZOSIN MESYLATE 4 MG TABS Take one by mouth daily DOXAZOSIN MESYLATE 13930266733 Active Robbie Busby MD Active TOPROL XL 200 MG [id number] Take one by mouth daily METOPROLOL SUCCINATE 17626468730 Active Robbie Busby MD Active VENLAFAXINE HCL ER 150 MG [id number] Take one by mouth daily VENLAFAXINE HCL 72096721732 Active Robbie Busby MD Active LIPITOR 40 MG TABS Take one by mouth daily ATORVASTATIN CALCIUM 35768932487 Active Robbie Busby MD Active ISOSORBIDE DINITRATE 30 MG TABS Take one by mouth daily ISOSORBIDE DINITRATE 30 MG TABS 975064 ISOSORBIDE DINITRATE Inactive NORVASC 10 MG TAB 1 tablet by mouth daily NORVASC 10 MG TAB 343075 AMLODIPINE BESYLATE Inactive AZITHROMYCIN 250 MG ORAL TABS 2 tablets PO today---then, 1 tablet PO daily x 4 more days (and 1 optional refill) AZITHROMYCIN 250 MG ORAL TABS 1496869 AZITHROMYCIN Inactive CHERATUSSIN AC 100-10 MG/5ML ORAL SOLN 7.5 mL PO q 4-6 hrs PRN cough CHERATUSSIN AC 100-10 MG/5ML ORAL SOLN 561350 GUAIFENESIN- CODEINE Inactive VIIBRYD 40 MG TABS take 1 tab po qday for depression. VIIBRYD 40 MG TABS VILAZODONE HCL Inactive HYDRALAZINE HCL 25 MG TABS 1 tablet by mouth tid for hypertension HYDRALAZINE HCL 25 MG TABS 968528 HYDRALAZINE HCL Inactive SPIRONOLACTONE 50 MG TABS 1 tablet by mouth twice a day SPIRONOLACTONE 50 MG TABS 939296 SPIRONOLACTONE Inactive FENOFIBRATE 145 MG TABS Take one by mouth daily FENOFIBRATE 145 MG TABS 002128 FENOFIBRATE Inactive PROTONIX 40 MG SOLR 1 po qday for acid reflux PROTONIX 40 MG SOLR 174758 PANTOPRAZOLE SODIUM Inactive CEFDINIR 300 MG ORAL CAPS Take 1 cap po bid x 10 days CEFDINIR 300 MG ORAL CAPS 968238 CEFDINIR Inactive PREDNISONE 20 MG TAB 1 tablet twice daily for 2 days, then 1 tablet once daily for 2 days PREDNISONE 20 MG TAB 285427 PREDNISONE Inactive NYSTATIN 343909 UNIT/ML M/T SUSP 5mL po QID x 10 days NYSTATIN 451670 UNIT/ML M/T SUSP 200445 NYSTATIN Inactive BETADINE 10 % EXT SOLN wash with solution to treat follicultis BETADINE 10 % EXT SOLN 9357814 POVIDONE-IODINE Inactive TRILEPTAL 150 MG ORAL TABS 1 TAB PO Q HS TRILEPTAL 150 MG ORAL TABS 074546 OXCARBAZEPINE Inactive LAMISIL 125 MG ORAL PACK 1 TAB PO DAILY LAMISIL 125 MG ORAL PACK TERBINAFINE HCL Inactive HYDROCHLOROTHIAZIDE TABS Take one by mouth daily HYDROCHLOROTHIAZIDE TABS HYDROCHLOROTHIAZIDE TABS Inactive HYDROCODONE-ACETAMINOPHEN 5-325 MG TABS 1 tab by mouth BID prn back pain 2013 HYDROCODONE-ACETAMINOPHEN 5-325 MG TABS 737361 HYDROCODONE -ACETAMINOPHEN Inactive HYDRALAZINE HCL 50 MG ORAL TABS TWO BY MOUTH THREE TIMES DAILY HYDRALAZINE HCL 50 MG ORAL TABS 384467 HYDRALAZINE HCL Inactive LEVAQUIN 500 MG TAB 1 tablet by mouth daily for 7 days LEVAQUIN 500 MG TAB 623735 LEVOFLOXACIN Inactive SPIRONOLACTONE 25 MG TAB 4 tablets by mouth daily SPIRONOLACTONE 25 MG TAB 989292 SPIRONOLACTONE Inactive MECLIZINE HCL 25 MG TAB one 4 times a day as needed for dizziness MECLIZINE HCL 25 MG TAB 613043 MECLIZINE HCL Inactive CLONIDINE HCL 0.2 MG ORAL TABS 1 TAB BY MOUTH EVERY 8 HOURS 12/29 CLONIDINE HCL 0.2 MG ORAL TABS 097487 CLONIDINE HCL Inactive CYCLOBENZAPRINE HCL 10 MG TABS 1 tablet by mouth three times daily as needed for muscle spasm/pain for 10 days CYCLOBENZAPRINE HCL 10 MG TABS 155407 CYCLOBENZAPRINE HCL Inactive VITAMIN D3 87578 UNIT CAPS 2 CAPS PO WEEKLY VITAMIN D3 92122 UNIT CAPS CHOLECALCIFEROL Inactive FIORICET 50-300-40 MG ORAL CAPS take 1 tab po qday prn migraines. FIORICET 50-300-40 MG ORAL CAPS 198024 [id number]-[id number] Inactive FLONASE 50 MCG/ACT SUSP 1 spray each nostril twice daily for allergies and runny nose FLONASE 50 MCG/ACT SUSP 2217260 FLUTICASONE PROPIONATE Inactive LORATADINE 10 MG TABS 1 tablet by mouth daily for congestion and allergies. LORATADINE 10 MG TABS 164463 LORATADINE Inactive NITROSTAT 0.4 MG SUBL PRN NITROSTAT 0.4 MG SUBL 508711 NITROGLYCERIN Inactive ZITHROMAX 250 MG TAB 2 po today, then 1 po q days 2-5 ZITHROMAX 250 MG TAB 1247297 AZITHROMYCIN Inactive TERBINAFINE HCL 250 MG TABS 1 tab po qday for foot infection 2014 TERBINAFINE HCL 250 MG TABS 075838 TERBINAFINE HCL Inactive KEFLEX 500 MG CAP 1 po TID x 10 days KEFLEX 500 MG CAP 044965 CEPHALEXIN Inactive BACTRIM DS 800-160 MG TAB 1 tab by mouth twice daily BACTRIM DS 800-160 MG TAB 595934 TRIMETHOPRIM-SULFAMETHOXAZOLE Inactive PREDNISONE 20 MG TAB take 3 tabs daily for 3 days, 2 tabs daily for 3 days, 1 tab daily for 3 days, 1/2 tab daily for 4 days PREDNISONE 20 MG TAB 776922 PREDNISONE Inactive Advance Directives Directive Description Start [...] AUTO - Chemistry sodium, serum 142 mmol/L 835-320 7318/07/17 carbon dioxide, venous blood 28.2 mmol/L 21.0-32.0 [...] % 11.0-15.0 platelet count 185 THOUSAND/UL 10*3/mm3 199-304 2038/04/14 mean platelet volume 10.9 fL 7.5-12.5 Lab Report: LIPID PANEL, TSH/899, T4, FREE/866 - Chemistry cholesterol, serum 220 mg/dL 357-248 3440/04/14 HDL cholesterol, serum 30 mg/dL > OR=40 triglyceride, serum, fasting 466 mg/dL <150 LDL cholesterol, serum SEE NOTE mg/dL (calc) mg/dL <130 cholesterol/HDL ratio, serum 7.3 (calc) < OR=5.0 Lab Report: MICROALB/CREAT W/RATIO - Chemistry albumin/creatinine ratio, urine < 30 mg/g mg/g{creat} 0-29 Lab Report: MICROALB/CREAT W/RATIO - Lab microalbumin, urine 80 0-19 Lab Report: VITAMIN D, 25-HYDROXY/33514 - Chemistry vitamin D 25-hydroxy, serum 25 ng/mL 30-100 Office Visit: Confusion, dizziness after fall - Basic LDL target level 130 mg/dL Office Visit: Confusion, dizziness after fall - Chemistry HDL cholesterol, serum, target level 40 mg/dL triglyceride, target level 150 mg/dL cholesterol, target level 200 mg/dL Encounters Code Encounter Date Provider Facility CPT-57101 Level 4 Est. Patient 15:18:19 CDT Robbie Busby MD [facility] CPT-00173 Level 3 Est. Patient 09:00:37 CDT Rober Rodríguez [facility] CPT-44940 Level 3 Est. Patient 16:07:10 CDT Robbie Busby MD [facility] CPT-39094 Level 4 Est. Patient 11:56:16 CDT Erin Garsia [facility] CPT-96144 Level 3 Est. Patient 17:48:02 CDT Robbie Busby MD [facility] CPT-13947 Level 4 Est. Patient 12:00:49 PRODUCT DESIGNER Rober Rodríguez [facility] CPT-40328 Level 3 Est. Patient 09:16:37 CDT Robbie Busby MD [facility] CPT-62121 Level 3 Est. Patient 19:38:43 CDT Robbie Busby MD [facility] CPT-26026 Level 3 Est. Patient 11:53:38 CDT Robbie Busby MD [facility] CPT-31073 Level 4 Est. Patient 12:52:22 CDT Rober Rodríguez [facility] CPT-24152 Level 4 Est. Patient 22:55:17 CDT Robbie Busby MD [facility] CPT-33177 Level 3 Est. Patient 12:38:24 CDT Desmond Diaz DO [facility] CPT-28903 Level 4 Est. Patient 11:25:03 PRODUCT DESIGNER Robbie Busby MD [facility] CPT-93213 Level 4 Est. Patient 14:50:10 CDT Robbie Busby MD [facility] CPT-19991 Level 4 Est. Patient 23:30:43 CDT Robbie Busby MD [facility] CPT-54345 Level 4 Est. Patient 10:30:43 CDT Robbie Busby MD [facility] CPT-45876 Level 3 Est. Patient 17:08:12 CDT Alex Shaw [facility] CPT-91086 Level 4 Est. Patient 17:51:38 CDT Robbie Busby MD [facility] CPT-19195 Level 4 Est. Patient 14:00:21 CDT Robbie Busby MD [facility] CPT-48496 Level 4 Est. Patient 12:46:48 CDT Robbie Busby MD [facility] CPT-73198 Level 4 Est. Patient 13:34:33 CDT Robbie Busby MD [facility] CPT-38379 Level 4 Est. Patient 16:58:28 CDT Robbie Busby MD [facility] CPT-42303 Level 3 Est. Patient 19:36:53 CDT Alex Shaw [facility] CPT-64845 Level 3 Est. Patient 12:58:15 CDT Robbie Busby MD [facility] Procedures Code Procedure Name Date Entry Date Standard Description CPT-J1071 Depo Testosterone 200mg 08:24:00 CDT CPT-42589 Abx/Therapy Injection 08:24:00 CDT CPT-07520 Venipuncture Draw Fee 14:39:06 CDT CPT-03195 Ribs unilateral 2V - XRAY USE ONLY 12:10:11 CDT CPT-35283 First Vx - Ix admin for Medicare patients 16:32:53 CDT CPT-26116 Boostrix Intramuscular Suspension 5-2.5-18.5 16:32:53 CDT CPT-26043 TB Skin Test 11:42:28 CDT CPT-41666 Tdap 7yrs or > 11:42:28 CDT CPT-J0696 Rocephin 1000 mg (Ceftriaxone) 17:43:43 PRODUCT DESIGNER CPT-J1040 Depo Medrol 80 mg (Methyl Prednisolone Acetate) 17:43: 43 PRODUCT DESIGNER CPT-J1100 Decadron 8mg (Dexamethasone) 17:43:42 PRODUCT DESIGNER CPT-46584 Abx/Therapy Injection 17:43:42 PRODUCT DESIGNER CPT-12780 Abx/Therapy Injection 17:43:42 PRODUCT DESIGNER CPT-J1040 Depo Medrol 80 mg (Methyl Prednisolone Acetate) 09:43: 34 PRODUCT DESIGNER CPT-J1100 Decadron 8mg (Dexamethasone) 09:43:34 PRODUCT DESIGNER CPT-J0696 Rocephin 1gm Inj Solr 09:43:34 PRODUCT DESIGNER CPT-91853 Wound Culture - LAB USE ONLY 14:00:21 CDT CPT-I/D I/D Abscess 09:16:37 CDT CPT-59459 Venipuncture Draw Fee 15:20:23 CDT CPT-74999 Microalbumin - LAB USE ONLY 16:02:19 CDT CPT-89826 CBC - LAB USE ONLY 16:02:19 CDT CPT-28888 Venipuncture Draw Fee 16:02:19 CDT CPT-G0438 Initial Annual Wellness Exam 08:10:28 CDT CPT-20245 Venipuncture Draw Fee 13:07:17 CDT CPT-G0008 Administration of Influenza Virus Vaccine 16:09:59 CDT CPT-19436 Fluzone Quadrivalent Intramuscular Suspension 0.5 ML 16: 09:59 CDT CPT-94843 Spec Collection and Handling Fee 15:05:50 CDT
--- OUTSIDE RECORDS SUMMARY | 2018-04-18 13:45 | XMS REPORT | Clinical Summary ---
Author Author Admin, AKUA Organization [employer] Address Unknown Phone Unavailable Allergies, Adverse [...] 2 weeks for low testosterone TESTOSTERONE CYPIONATE 42206948917 Active Zulema Blank LPN Active CYCLOBENZAPRINE HCL 10 MG ORAL TABS 1 po TID PRN muscle spasm/pain for 10 days CYCLOBENZAPRINE HCL 82465140268 Active JONATHAN Moncada Active GUAIFENESIN 600 MG [id number] 1 tab po q am GUAIFENESIN 88935845703 Active Rober Rodríguez HEALTH EDUCATION SPECIALIST Active FLUTICASONE PROPIONATE 50 MCG/ACT SUSP 2 sprays per nostril bid for 1 week, then 1 spray bid FLUTICASONE PROPIONATE 17673125839 Active Jillina Frazelariana GONZALEZN Active HYDRALAZINE HCL 25 MG ORAL TABS Take 1 tab BID. HYDRALAZINE HCL 43597736186 Active Jillina Anne GONZALEZN Active VITAMIN D3 64391 UNIT ORAL TABS 2 po weekly CHOLECALCIFEROL 01345266095 Active Robbie Busby MD Active OXYCODONE HCL ER 10 MG ORAL T12A 1 tab po 3 times qd. OXYCODONE HCL 11387561508 Active Robbie Busby MD Active NITROSTAT 0.4 MG SUBL PRN NITROGLYCERIN 72185390082 No Longer Active Robbie Busby MD Active LORATADINE 10 MG TABS 1 tablet by mouth daily for congestion and allergies. LORATADINE 07123300759 No Longer Active Robbie Busby MD Active FLONASE 50 MCG/ACT SUSP 1 spray each nostril twice daily for allergies and runny nose FLUTICASONE PROPIONATE 18621942862 No Longer Active Robbie Busby MD Active FIORICET 50-300-40 MG ORAL CAPS take 1 tab po qday prn migraines. [id number]-[id number] 45870363166 No Longer Active Robbie Busby MD Active VITAMIN D3 85409 UNIT CAPS 2 CAPS PO WEEKLY CHOLECALCIFEROL 45555119963 No Longer Active Robbie Busby MD Active CYCLOBENZAPRINE HCL 10 MG TABS 1 tablet by mouth three times daily as needed for muscle spasm/pain for 10 days CYCLOBENZAPRINE HCL 27798681147 No Longer Active Robbie Busby MD Active PREDNISONE 20 MG TAB take 3 tabs daily for 3 days, 2 tabs daily for 3 days, 1 tab daily for 3 days, 1/2 tab daily for 4 days PREDNISONE 72258836539 No Longer Active Erin Garsia APRN Active CLONIDINE HCL 0.2 MG ORAL TABS 1 TAB BY MOUTH EVERY 8 HOURS 12/29 CLONIDINE HCL 04342914280 No Longer Active Erin Garsia APRN Active MECLIZINE HCL 25 MG TAB one 4 times a day as needed for dizziness MECLIZINE HCL 85166549966 No Longer Active Erin Garsia APRN Active SPIRONOLACTONE 25 MG TAB 4 tablets by mouth daily SPIRONOLACTONE 45383796113 No Longer Active Erin Garsia APRN Active LEVAQUIN 500 MG TAB 1 tablet by mouth daily for 7 days LEVOFLOXACIN 31463674412 No Longer Active Erin Garsia APRN Active BACTRIM DS 800-160 MG TAB 1 tab by mouth twice daily TRIMETHOPRIM-SULFAMETHOXAZOLE 17075884131 No Longer Active Robbie Busby MD Active HYDRALAZINE HCL 50 MG ORAL TABS TWO BY MOUTH THREE TIMES DAILY HYDRALAZINE HCL 71097457229 No Longer Active Jillina Frazell HEALTH EDUCATION SPECIALIST Active HYDROCODONE-ACETAMINOPHEN 5-325 MG TABS 1 tab by mouth BID prn back pain 2013 HYDROCODONE-ACETAMINOPHEN 98862874921 No Longer Active Jillina Frazell HEALTH EDUCATION SPECIALIST Active HYDROCHLOROTHIAZIDE TABS Take one by mouth daily HYDROCHLOROTHIAZIDE TABS 93830755854 No Longer Active Jillina Frazell HEALTH EDUCATION SPECIALIST Active LAMISIL 125 MG ORAL PACK 1 TAB PO DAILY TERBINAFINE HCL 97848002145 No Longer Active Jillina Frazell HEALTH EDUCATION SPECIALIST Active TRILEPTAL 150 MG ORAL TABS 1 TAB PO Q HS OXCARBAZEPINE 23933223842 No Longer Active Jillina Frazell HEALTH EDUCATION SPECIALIST Active BETADINE 10 % EXT SOLN wash with solution to treat follicultis POVIDONE-IODINE 51746935985 No Longer Active Jillina Frazell HEALTH EDUCATION SPECIALIST Active NYSTATIN 150527 UNIT/ML M/T SUSP 5mL po QID x 10 days NYSTATIN 87803242994 No Longer Active Erin Ady HEALTH EDUCATION SPECIALIST Active PREDNISONE 20 MG TAB 1 tablet twice daily for 2 days, then 1 tablet once daily for 2 days PREDNISONE 55262735951 No Longer Active Robbie Busby MD Active CEFDINIR 300 MG ORAL CAPS Take 1 cap po bid x 10 days CEFDINIR 12539781653 No Longer Active Robbie Busby MD Active AMLODIPINE BESYLATE 10 MG TABS 1 tablet by mouth daily AMLODIPINE BESYLATE 57769663300 Active Robbie Busby MD Active CARVEDILOL 25 MG TABS 1 & 1/2 TAB po BID CARVEDILOL 89168818913 Active Robbie Busby MD Active NEXIUM 40 MG CPDR 1 cap by mouth daily ESOMEPRAZOLE MAGNESIUM 37841519035 Active Robbie Busby MD Active PROTONIX 40 MG SOLR 1 po qday for acid reflux PANTOPRAZOLE SODIUM 24004775609 No Longer Active Gali Raida Active KEFLEX 500 MG CAP 1 po TID x 10 days CEPHALEXIN 66766922322 No Longer Active Robbie Busby MD Active TOPIRAMATE 50 MG ORAL TABS take 1 tab po BID for migraines. TOPIRAMATE 72352467155 Active Robbie Busby MD Active TEMAZEPAM 15 MG ORAL CAPS 1 TAB PO Q HS TEMAZEPAM 05422503805 Active Robbie Busby MD Active ALPRAZOLAM 2 MG ORAL TABS 1 TAB PO BID ALPRAZOLAM 83890312275 Active Robbie Busby MD Active FENOFIBRATE 145 MG TABS Take one by mouth daily FENOFIBRATE 50103249370 No Longer Active Robbie Busby MD Active SPIRONOLACTONE 50 MG TABS 1 tablet by mouth twice a day SPIRONOLACTONE 14027118300 No Longer Active Robbie Busby MD Active HYDRALAZINE HCL 25 MG TABS 1 tablet by mouth tid for hypertension HYDRALAZINE HCL 93017436913 No Longer Active Robbie Busby MD Active VIIBRYD 40 MG TABS take 1 tab po qday for depression. VILAZODONE HCL 65710254369 No Longer Active Robbie Busby MD Active TERBINAFINE HCL 250 MG TABS 1 tab po qday for foot infection 2014 TERBINAFINE HCL 36205745434 No Longer Active Robbie Busby MD Active GABAPENTIN 300 MG CAPS 1 po q hs for nerve pain GABAPENTIN 81924740157 Active Robbie Busby MD Active CHERATUSSIN AC 100-10 MG/5ML ORAL SOLN 7.5 mL PO q 4-6 hrs PRN cough GUAIFENESIN-CODEINE 65436187293 No Longer Active Robbie Busby MD Active AZITHROMYCIN 250 MG ORAL TABS 2 tablets PO today---then, 1 tablet PO daily x 4 more days (and 1 optional refill) AZITHROMYCIN 21914102129 No Longer Active Robbie Busby MD Active NORVASC 10 MG TAB 1 tablet by mouth daily AMLODIPINE BESYLATE 66941834371 No Longer Active Alex ALVAREZ Active IMDUR 60 MG TAB CR take 1 tab po qday for blood pressure ISOSORBIDE MONONITRATE Active Robbie Busby MD Active ISOSORBIDE DINITRATE 30 MG TABS Take one by mouth daily ISOSORBIDE DINITRATE 93011471970 No Longer Active Robbie Busby MD Active VIIBRYD 40 MG TABS 1 TA B PO DAILY VILAZODONE HCL 09629781130 Active Robbie Busby MD Active ZITHROMAX 250 MG TAB 2 po today, then 1 po q days 2-5 AZITHROMYCIN 06594283516 No Longer Active Robbie Busby MD Active ZLFURDPB-YEM-0 0.3 MG/24HR PTWK apply 2 patches q week for HTN CLONIDINE HCL 65004223824 Active Robbie Busby MD Active DOXAZOSIN MESYLATE 4 MG TABS Take one by mouth daily DOXAZOSIN MESYLATE 22123265525 Active Robbie Busby MD Active TOPROL XL 200 MG AO85O-CPD Take one by mouth daily METOPROLOL SUCCINATE 99698278664 Active Robbie Busby MD Active VENLAFAXINE HCL ER 150 MG UA52O-YFQ Take one by mouth daily VENLAFAXINE HCL 45043759115 Active Robbie Busby MD Active LIPITOR 40 MG TABS Take one by mouth daily ATORVASTATIN CALCIUM 42435219746 Active Robbie Busby MD Active ISOSORBIDE DINITRATE 30 MG TABS Take one by mouth daily ISOSORBIDE DINITRATE 30 MG TABS 168420 ISOSORBIDE DINITRATE Inactive NORVASC 10 MG TAB 1 tablet by mouth daily NORVASC 10 MG TAB 788915 AMLODIPINE BESYLATE Inactive AZITHROMYCIN 250 MG ORAL TABS 2 tablets PO today---then, 1 tablet PO daily x 4 more days (and 1 optional refill) AZITHROMYCIN 250 MG ORAL TABS 0450107 AZITHROMYCIN Inactive CHERATUSSIN AC 100-10 MG/5ML ORAL SOLN 7.5 mL PO q 4-6 hrs PRN cough CHERATUSSIN AC 100-10 MG/5ML ORAL SOLN 503674 GUAIFENESIN- CODEINE Inactive VIIBRYD 40 MG TABS take 1 tab po qday for depression. VIIBRYD 40 MG TABS VILAZODONE HCL Inactive HYDRALAZINE HCL 25 MG TABS 1 tablet by mouth tid for hypertension HYDRALAZINE HCL 25 MG TABS 943398 HYDRALAZINE HCL Inactive SPIRONOLACTONE 50 MG TABS 1 tablet by mouth twice a day SPIRONOLACTONE 50 MG TABS 513373 SPIRONOLACTONE Inactive FENOFIBRATE 145 MG TABS Take one by mouth daily FENOFIBRATE 145 MG TABS 970195 FENOFIBRATE Inactive PROTONIX 40 MG SOLR 1 po qday for acid reflux PROTONIX 40 MG SOLR 479124 PANTOPRAZOLE SODIUM Inactive CEFDINIR 300 MG ORAL CAPS Take 1 cap po bid x 10 days CEFDINIR 300 MG ORAL CAPS 920779 CEFDINIR Inactive PREDNISONE 20 MG TAB 1 tablet twice daily for 2 days, then 1 tablet once daily for 2 days PREDNISONE 20 MG TAB 564569 PREDNISONE Inactive NYSTATIN 286532 UNIT/ML M/T SUSP 5mL po QID x 10 days NYSTATIN 702951 UNIT/ML M/T SUSP 591339 NYSTATIN Inactive BETADINE 10 % EXT SOLN wash with solution to treat follicultis BETADINE 10 % EXT SOLN 6291898 POVIDONE-IODINE Inactive TRILEPTAL 150 MG ORAL TABS 1 TAB PO Q HS TRILEPTAL 150 MG ORAL TABS 454125 OXCARBAZEPINE Inactive LAMISIL 125 MG ORAL PACK 1 TAB PO DAILY LAMISIL 125 MG ORAL PACK TERBINAFINE HCL Inactive HYDROCHLOROTHIAZIDE TABS Take one by mouth daily HYDROCHLOROTHIAZIDE TABS HYDROCHLOROTHIAZIDE TABS Inactive HYDROCODONE-ACETAMINOPHEN 5-325 MG TABS 1 tab by mouth BID prn back pain 2013 HYDROCODONE-ACETAMINOPHEN 5-325 MG TABS 288539 HYDROCODONE -ACETAMINOPHEN Inactive HYDRALAZINE HCL 50 MG ORAL TABS TWO BY MOUTH THREE TIMES DAILY HYDRALAZINE HCL 50 MG ORAL TABS 165372 HYDRALAZINE HCL Inactive LEVAQUIN 500 MG TAB 1 tablet by mouth daily for 7 days LEVAQUIN 500 MG TAB 468938 LEVOFLOXACIN Inactive SPIRONOLACTONE 25 MG TAB 4 tablets by mouth daily SPIRONOLACTONE 25 MG TAB 801157 SPIRONOLACTONE Inactive MECLIZINE HCL 25 MG TAB one 4 times a day as needed for dizziness MECLIZINE HCL 25 MG TAB 278938 MECLIZINE HCL Inactive CLONIDINE HCL 0.2 MG ORAL TABS 1 TAB BY MOUTH EVERY 8 HOURS 12/29 CLONIDINE HCL 0.2 MG ORAL TABS 631882 CLONIDINE HCL Inactive CYCLOBENZAPRINE HCL 10 MG TABS 1 tablet by mouth three times daily as needed for muscle spasm/pain for 10 days CYCLOBENZAPRINE HCL 10 MG TABS 748227 CYCLOBENZAPRINE HCL Inactive VITAMIN D3 99182 UNIT CAPS 2 CAPS PO WEEKLY VITAMIN D3 71416 UNIT CAPS CHOLECALCIFEROL Inactive FIORICET 50-300-40 MG ORAL CAPS take 1 tab po qday prn migraines. FIORICET 50-300-40 MG ORAL CAPS 901781 [id number] Inactive FLONASE 50 MCG/ACT SUSP 1 spray each nostril twice daily for allergies and runny nose FLONASE 50 MCG/ACT SUSP 8958656 FLUTICASONE PROPIONATE Inactive LORATADINE 10 MG TABS 1 tablet by mouth daily for congestion and allergies. LORATADINE 10 MG TABS 652925 LORATADINE Inactive NITROSTAT 0.4 MG SUBL PRN NITROSTAT 0.4 MG SUBL 025091 NITROGLYCERIN Inactive ZITHROMAX 250 MG TAB 2 po today, then 1 po q days 2-5 ZITHROMAX 250 MG TAB 6315510 AZITHROMYCIN Inactive TERBINAFINE HCL 250 MG TABS 1 tab po qday for foot infection 2014 TERBINAFINE HCL 250 MG TABS 077388 TERBINAFINE HCL Inactive KEFLEX 500 MG CAP 1 po TID x 10 days KEFLEX 500 MG CAP 307602 CEPHALEXIN Inactive BACTRIM DS 800-160 MG TAB 1 tab by mouth twice daily BACTRIM DS 800-160 MG TAB 673591 TRIMETHOPRIM-SULFAMETHOXAZOLE Inactive PREDNISONE 20 MG TAB take 3 tabs daily for 3 days, 2 tabs daily for 3 days, 1 tab daily for 3 days, 1/2 tab daily for 4 days PREDNISONE 20 MG TAB 621352 PREDNISONE Inactive Advance Directives Directive Description Start [...] AUTO - Chemistry sodium, serum 142 mmol/L 265-431 3753/07/17 carbon dioxide, venous blood 28.2 mmol/L 21.0-32.0 [...] % 11.0-15.0 platelet count 185 THOUSAND/UL 10*3/mm3 304-527 9314/04/14 mean platelet volume 10.9 fL 7.5-12.5 Lab Report: LIPID PANEL, TSH/899, T4, FREE/866 - Chemistry cholesterol, serum 220 mg/dL 466-353 6478/04/14 HDL cholesterol, serum 30 mg/dL > OR=40 triglyceride, serum, fasting 466 mg/dL <150 LDL cholesterol, serum SEE NOTE mg/dL (calc) mg/dL <130 cholesterol/HDL ratio, serum 7.3 (calc) < OR=5.0 Lab Report: MICROALB/CREAT W/RATIO - Chemistry albumin/creatinine ratio, urine < 30 mg/g mg/g{creat} 0-29 Lab Report: MICROALB/CREAT W/RATIO - Lab microalbumin, urine 80 0-19 Lab Report: VITAMIN D, 25-HYDROXY/22482 - Chemistry vitamin D 25-hydroxy, serum 25 ng/mL 30-100 Office Visit: Confusion, dizziness after fall - Basic LDL target level 130 mg/dL Office Visit: Confusion, dizziness after fall - Chemistry HDL cholesterol, serum, target level 40 mg/dL triglyceride, target level 150 mg/dL cholesterol, target level 200 mg/dL Encounters Code Encounter Date Provider Facility CPT-49281 Level 4 Est. Patient 15:18:19 CDT Robbie Busby MD [facility] CPT-08125 Level 3 Est. Patient 09:00:37 CDT Rober Rodrígeuz [facility] CPT-88873 Level 3 Est. Patient 16:07:10 CDT Robbie Busby MD [facility] CPT-47662 Level 4 Est. Patient 11:56:16 CDT Erin Garsia [facility] CPT-72656 Level 3 Est. Patient 17:48:02 CDT Robbie Busby MD [facility] CPT-32767 Level 4 Est. Patient 12:00:49 KEYBOARD TEACHER Rober Rodríguez [facility] CPT-79102 Level 3 Est. Patient 09:16:37 CDT Robbie Busby MD [facility] CPT-07919 Level 3 Est. Patient 19:38:43 CDT Robbie Busby MD [facility] CPT-59922 Level 3 Est. Patient 11:53:38 CDT Robbie Busby MD [facility] CPT-95128 Level 4 Est. Patient 12:52:22 CDT Rober Rodríguez [facility] CPT-99573 Level 4 Est. Patient 22:55:17 CDT Robbie Busby MD [facility] CPT-27300 Level 3 Est. Patient 12:38:24 CDT Desmond Diaz DO [facility] CPT-58635 Level 4 Est. Patient 11:25:03 KEYBOARD TEACHER Robbie Busby MD [facility] CPT-45988 Level 4 Est. Patient 14:50:10 CDT Robbie Busby MD [facility] CPT-24903 Level 4 Est. Patient 23:30:43 CDT Robbie Busby MD [facility] CPT-71995 Level 4 Est. Patient 10:30:43 CDT Robbie Busby MD [facility] CPT-16493 Level 3 Est. Patient 17:08:12 CDT Alex [facility] CPT-87064 Level 4 Est. Patient 17:51:38 CDT Robbie Busby MD [facility] CPT-55649 Level 4 Est. Patient 14:00:21 CDT Robbie Busby MD [facility] CPT-44021 Level 4 Est. Patient 12:46:48 CDT Robbie Busby MD [facility] CPT-86562 Level 4 Est. Patient 13:34:33 CDT Robbie Busby MD [facility] CPT-66466 Level 4 Est. Patient 16:58:28 CDT Robbie Busby MD [facility] CPT-84625 Level 3 Est. Patient 19:36:53 CDT Alex [facility] CPT-54565 Level 3 Est. Patient 12:58:15 CDT Robbie Busby MD [facility] Procedures Code Procedure Name Date Entry Date Standard Description CPT-J1071 Depo Testosterone 200mg 08:24:00 CDT CPT-90887 Abx/Therapy Injection 08:24:00 CDT CPT-35207 Venipuncture Draw Fee 14:39:06 CDT CPT-72914 Ribs unilateral 2V - XRAY USE ONLY 12:10:11 CDT CPT-45412 First Vx - Ix admin for Medicare patients 16:32:53 CDT CPT-94927 Boostrix Intramuscular Suspension 5-2.5-18.5 16:32:53 CDT CPT-83021 TB Skin Test 11:42:28 CDT CPT-83388 Tdap 7yrs or > 11:42:28 CDT CPT-J0696 Rocephin 1000 mg (Ceftriaxone) 17:43:43 KEYBOARD TEACHER CPT-J1040 Depo Medrol 80 mg (Methyl Prednisolone Acetate) 17:43: 43 KEYBOARD TEACHER CPT-J1100 Decadron 8mg (Dexamethasone) 17:43:42 KEYBOARD TEACHER CPT-33971 Abx/Therapy Injection 17:43:42 KEYBOARD TEACHER CPT-36530 Abx/Therapy Injection 17:43:42 KEYBOARD TEACHER CPT-J1040 Depo Medrol 80 mg (Methyl Prednisolone Acetate) 09:43: 34 KEYBOARD TEACHER CPT-J1100 Decadron 8mg (Dexamethasone) 09:43:34 KEYBOARD TEACHER CPT-J0696 Rocephin 1gm Inj Solr 09:43:34 KEYBOARD TEACHER CPT-88129 Wound Culture - LAB USE ONLY 14:00:21 CDT CPT-I/D I/D Abscess 09:16:37 CDT CPT-27149 Venipuncture Draw Fee 15:20:23 CDT CPT-73234 Microalbumin - LAB USE ONLY 16:02:19 CDT CPT-35927 CBC - LAB USE ONLY 16:02:19 CDT CPT-43411 Venipuncture Draw Fee 16:02:19 CDT CPT-G0438 Initial Annual Wellness Exam 08:10:28 CDT CPT-24597 Venipuncture Draw Fee 13:07:17 CDT CPT-G0008 Administration of Influenza Virus Vaccine 16:09:59 CDT CPT-46829 Fluzone Quadrivalent Intramuscular Suspension 0.5 ML 16: 09:59 CDT CPT-62551 Spec Collection and Handling Fee 15:05:50 CDT
--- OUTSIDE RECORDS SUMMARY | 2018-04-18 13:45 | XMS REPORT | Clinical Summary ---
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 Acute upper respiratory infections of unspecified site Hypertension 401.9 Active Rober Rodríguez APRN Unspecified essential hypertension Medication List Medication Instructions Start Date Stop Date Generic Name NDC Status Provider Patient Instruction BACTRIM DS 800-160 MG TAB 1 tab by mouth twice daily TRIMETHOPRIM-SULFAMETHOXAZOLE 44215796399 No Longer Active Robbie Busby MD Active SPIRONOLACTONE 25 MG TAB 4 tablets by mouth daily SPIRONOLACTONE 40887526934 Active Robbie Busby MD Active HYDRALAZINE HCL 50 MG ORAL TABS TWO BY MOUTH THREE TIMES DAILY HYDRALAZINE HCL 69044474977 No Longer Active Andrellina Anne GONZALEZN Active HYDROCODONE-ACETAMINOPHEN 5-325 MG TABS 1 tab by mouth BID prn back pain 2013 HYDROCODONE-ACETAMINOPHEN 93298653068 No Longer Active Jillina Anne GONZALEZN Active HYDROCHLOROTHIAZIDE TABS Take one by mouth daily HYDROCHLOROTHIAZIDE TABS 13654560621 No Longer Active Jillina Frakierstenl 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 LAMISIL 125 MG ORAL PACK 1 TAB PO DAILY TERBINAFINE HCL 22156460900 No Longer Active Jillina Rodolfozell 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 OUT 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 TRILEPTAL 150 MG ORAL TABS 1 TAB PO Q HS OXCARBAZEPINE 33467445413 No Longer Active Jillina Frazell 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 OUT 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 BETADINE 10 % EXT SOLN wash with solution to treat follicultis POVIDONE-IODINE 00034691921 No Longer Active Jillina Frazell SAUNDRA Active NYSTATIN 868215 UNIT/ML M/T SUSP 5mL po QID x 10 days NYSTATIN 43845289695 No Longer Active Erin Garsia APRN Active PREDNISONE 20 MG TAB 1 tablet twice daily for 2 days, then 1 tablet once daily for 2 days PREDNISONE 01004868646 No Longer Active Robbie Busby MD Active CEFDINIR 300 MG ORAL CAPS Take 1 cap po bid x 10 days CEFDINIR 20772543576 No Longer Active Robbie Busby MD Active AMLODIPINE BESYLATE 10 MG TABS 1 tablet by mouth daily AMLODIPINE BESYLATE 04347971754 Active Robbie Busby MD Active CARVEDILOL 25 MG TABS 1 & 1/2 TAB po BID CARVEDILOL 78916359888 Active Erin Garsia APRN Active VITAMIN D3 38268 UNIT CAPS 2 CAPS PO WEEKLY CHOLECALCIFEROL 79495228843 Active Erin Garsia APRN Active NEXIUM 40 MG CPDR 1 cap by mouth daily ESOMEPRAZOLE MAGNESIUM 68607591384 Active Robbie Busby MD Active PROTONIX 40 MG SOLR 1 po qday for acid reflux PANTOPRAZOLE SODIUM 28027707663 No Longer Active Galileonila Torresida Active KEFLEX 500 MG CAP 1 po TID x 10 days CEPHALEXIN 52412129198 No Longer Active Robbie Busby MD Active FIORICET 50-300-40 MG ORAL CAPS take 1 tab po qday prn migraines. [id number]-VJJLGENI 11047697511 Active Robbie Busby MD Active TOPIRAMATE 50 MG ORAL TABS take 1 tab po BID for migraines. TOPIRAMATE 60342161363 Active Robbie Busby MD Active MECLIZINE HCL 25 MG TAB one 4 times a day as needed for dizziness MECLIZINE HCL 63006045212 Active Robbie Busby MD Active TEMAZEPAM 15 MG ORAL CAPS 1 TAB PO Q HS TEMAZEPAM 24076460850 Active Robbie Busby MD Active ALPRAZOLAM 2 MG ORAL TABS 1 TAB PO BID ALPRAZOLAM 21956100610 Active Robbie Busby MD Active FENOFIBRATE 145 MG TABS Take one by mouth daily FENOFIBRATE 56562271163 No Longer Active Robbie Busby MD Active SPIRONOLACTONE 50 MG TABS 1 tablet by mouth twice a day SPIRONOLACTONE 26893811445 No Longer Active Robbie Busby MD Active HYDRALAZINE HCL 25 MG TABS 1 tablet by mouth tid for hypertension HYDRALAZINE HCL 85861294779 No Longer Active Robbie Busby MD Active VIIBRYD 40 MG TABS take 1 tab po qday for depression. VILAZODONE HCL 40837602139 No Longer Active Robbie Busby MD Active TERBINAFINE HCL 250 MG TABS 1 tab po qday for foot infection 2014 TERBINAFINE HCL 40632205204 No Longer Active Robbie Busby MD Active GABAPENTIN 300 MG CAPS 1 po q hs for nerve pain GABAPENTIN 66643296347 Active Robbie Busby MD Active FLONASE 50 MCG/ACT SUSP 1 spray each nostril twice daily for allergies and runny nose FLUTICASONE PROPIONATE 50039446026 Active Robbie Busby MD Active CHERATUSSIN AC 100-10 MG/5ML ORAL SOLN 7.5 mL PO q 4-6 hrs PRN cough GUAIFENESIN-CODEINE 26047898553 No Longer Active Robbie Busby MD Active AZITHROMYCIN 250 MG ORAL TABS 2 tablets PO today---then, 1 tablet PO daily x 4 more days (and 1 optional refill) AZITHROMYCIN 88971444766 No Longer Active Robbie Busby MD Active CLONIDINE HCL 0.2 MG ORAL TABS 1 TAB BY MOUTH EVERY 8 HOURS CLONIDINE HCL 52339849078 Active Robbie Busby MD Active NORVASC 10 MG TAB 1 tablet by mouth daily AMLODIPINE BESYLATE 04515622901 No Longer Active Alex ALVAREZ Active IMDUR 60 MG TAB CR take 1 tab po qday for blood pressure ISOSORBIDE MONONITRATE Active Robbie Busby MD Active ISOSORBIDE DINITRATE 30 MG TABS Take one by mouth daily ISOSORBIDE DINITRATE 40775433137 No Longer Active Robbie Busby MD Active VIIBRYD 40 MG TABS 1 TA B PO DAILY VILAZODONE HCL 85805206424 Active Robbie Busby MD Active LORATADINE 10 MG TABS 1 tablet by mouth daily for congestion and allergies. LORATADINE 44370087333 Active Robbie Busby MD Active ZITHROMAX 250 MG TAB 2 po today, then 1 po q days 2-5 AZITHROMYCIN 10546412149 No Longer Active Robbie Busby MD Active GBYHHEAL-PWP-8 0.3 MG/24HR PTWK apply 2 patches q week for HTN CLONIDINE HCL 41042038302 Active Robbie Busby MD Active NITROSTAT 0.4 MG SUBL PRN NITROGLYCERIN 67923146951 Active Robbie Busby MD Active DOXAZOSIN MESYLATE 4 MG TABS Take one by mouth daily DOXAZOSIN MESYLATE 25342141191 Active Erin Grasia APRN Active TOPROL XL 200 MG [id number] Take one by mouth daily METOPROLOL SUCCINATE 16823406393 Active Robbie Busby MD Active VENLAFAXINE HCL ER 150 MG [id number] Take one by mouth daily VENLAFAXINE HCL 36634567687 Active Robbie Busby MD Active LIPITOR 40 MG TABS Take one by mouth daily ATORVASTATIN CALCIUM 89196721548 Active Robbie Busby MD Active ISOSORBIDE DINITRATE 30 MG TABS Take one by mouth daily ISOSORBIDE DINITRATE 30 MG TABS 268583 ISOSORBIDE DINITRATE Inactive NORVASC 10 MG TAB 1 tablet by mouth daily NORVASC 10 MG TAB 734843 AMLODIPINE BESYLATE Inactive AZITHROMYCIN 250 MG ORAL TABS 2 tablets PO today---then, 1 tablet PO daily x 4 more days (and 1 optional refill) AZITHROMYCIN 250 MG ORAL TABS 7062462 AZITHROMYCIN Inactive CHERATUSSIN AC 100-10 MG/5ML ORAL SOLN 7.5 mL PO q 4-6 hrs PRN cough CHERATUSSIN AC 100-10 MG/5ML ORAL SOLN 580328 GUAIFENESIN- CODEINE Inactive VIIBRYD 40 MG TABS take 1 tab po qday for depression. VIIBRYD 40 MG TABS VILAZODONE HCL Inactive HYDRALAZINE HCL 25 MG TABS 1 tablet by mouth tid for hypertension HYDRALAZINE HCL 25 MG TABS 365039 HYDRALAZINE HCL Inactive SPIRONOLACTONE 50 MG TABS 1 tablet by mouth twice a day SPIRONOLACTONE 50 MG TABS 444784 SPIRONOLACTONE Inactive FENOFIBRATE 145 MG TABS Take one by mouth daily FENOFIBRATE 145 MG TABS 640696 FENOFIBRATE Inactive PROTONIX 40 MG SOLR 1 po qday for acid reflux PROTONIX 40 MG SOLR 904916 PANTOPRAZOLE SODIUM Inactive CEFDINIR 300 MG ORAL CAPS Take 1 cap po bid x 10 days CEFDINIR 300 MG ORAL CAPS 073515 CEFDINIR Inactive PREDNISONE 20 MG TAB 1 tablet twice daily for 2 days, then 1 tablet once daily for 2 days PREDNISONE 20 MG TAB 629320 PREDNISONE Inactive NYSTATIN 031706 UNIT/ML M/T SUSP 5mL po QID x 10 days NYSTATIN 802796 UNIT/ML M/T SUSP 795225 NYSTATIN Inactive BETADINE 10 % EXT SOLN wash with solution to treat follicultis BETADINE 10 % EXT SOLN 6453350 POVIDONE-IODINE Inactive TRILEPTAL 150 MG ORAL TABS 1 TAB PO Q HS TRILEPTAL 150 MG ORAL TABS 173658 OXCARBAZEPINE Inactive LAMISIL 125 MG ORAL PACK 1 TAB PO DAILY LAMISIL 125 MG ORAL PACK TERBINAFINE HCL Inactive HYDROCHLOROTHIAZIDE TABS Take one by mouth daily HYDROCHLOROTHIAZIDE TABS HYDROCHLOROTHIAZIDE TABS Inactive HYDROCODONE-ACETAMINOPHEN 5-325 MG TABS 1 tab by mouth BID prn back pain 2013 HYDROCODONE-ACETAMINOPHEN 5-325 MG TABS 303594 HYDROCODONE -ACETAMINOPHEN Inactive HYDRALAZINE HCL 50 MG ORAL TABS TWO BY MOUTH THREE TIMES DAILY HYDRALAZINE HCL 50 MG ORAL TABS 791886 HYDRALAZINE HCL Inactive ZITHROMAX 250 MG TAB 2 po today, then 1 po q days 2-5 ZITHROMAX 250 MG TAB 0698134 AZITHROMYCIN Inactive TERBINAFINE HCL 250 MG TABS 1 tab po qday for foot infection 2014 TERBINAFINE HCL 250 MG TABS 748495 TERBINAFINE HCL Inactive KEFLEX 500 MG CAP 1 po TID x 10 days KEFLEX 500 MG CAP 511973 CEPHALEXIN Inactive BACTRIM DS 800-160 MG TAB 1 tab by mouth twice daily BACTRIM DS 800-160 MG TAB 108340 TRIMETHOPRIM-SULFAMETHOXAZOLE Inactive Advance Directives Directive Description Start [...] 29.4 mmol/L 21.0-32.0 sodium, serum 139 mmol/L 440-664 9847/04/22 urea nitrogen, blood 29 mg/dL 7-18 creatinine, serum 1.65 mg/dL 0.55-1.30 alanine aminotransferase (SGPT), serum 40 U/L 12-78 aspartate aminotransferase (SGOT), serum 21 U/L 15-37 calcium, serum 9.4 mg/dL 8.5-10.1 bilirubin, serum, total 0.60 mg/dL 0.00-1.00 uric acid, serum 10.7 mg/dL 2.6-7.2 blood glucose 104 mg/dL 65-110 Lab Report: HEPATITIS B SAB/Immune Status, RUBELLA IGG AB(Immune Status) - Serology rubella antibody, serum, IgG 2.06 Lab Report: MICROALB/CREAT W/RATIO - Chemistry albumin/creatinine ratio, urine < 30 mg/g mg/g{creat} 0-29 Lab Report: MICROALB/CREAT W/RATIO - Lab microalbumin, urine 80 0-19 Lab Report: RapidStrep Rflx/Cx - Lab Microbial identification kit, rapid strep method Negative-Throat Culture to Follow Negative Lab Report: VITAMIN D, 25-HYDROXY/59769 - Chemistry vitamin D 25-hydroxy, serum 23 ng/mL 30-100 Encounters Code Encounter Date Provider Facility CPT-31402 Level 4 Est. 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 Patient 09:16:37 CDT Robbie Busby MD [facility] CPT-76812 Level 3 Est. Patient 19:38:43 CDT Robbie Busby MD [facility] CPT-16462 Level 3 Est. Patient 11:53:38 CDT Robbie Busby MD [facility] CPT-51403 Level 4 Est. Patient 12:52:22 CDT Rober Rodríguez [facility] CPT-94539 Level 4 Est. Patient 22:55:17 CDT Robbie Busby MD [facility] CPT-41587 Level 3 Est. Patient 12:38:24 CDT Desmond Diaz DO [facility] CPT-55176 Level 4 Est. 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 Patient 14:50:10 CDT Robbie Busby MD [facility] CPT-91671 Level 4 Est. Patient 23:30:43 CDT Robbie Busby MD [facility] CPT-82058 Level 4 Est. Patient 10:30:43 CDT Robbie Busby MD [facility] CPT-53791 Level 3 Est. Patient 17:08:[address] [facility] CPT-38519 Level 4 Est. Patient 17:51:38 CDT Robbie Busby MD [facility] CPT-43801 Level 4 Est. Patient 14:00:21 CDT Robbie Busby MD [facility] CPT-83057 Level 4 Est. Patient 12:46:48 CDT Robbie Busby MD [facility] CPT-78724 Level 4 Est. Patient 13:34:33 CDT Robbie Busby MD [facility] CPT-97303 Level 4 Est. Patient 16:58:28 CDT Robbie Busby MD [facility] CPT-45825 Level 3 Est. Patient 19:36:[address] [facility] CPT-08720 Level 3 Est. Patient 12:58:15 CDT Robbie Busby MD [facility] Procedures Code Procedure Name Date Entry Date Standard Description CPT-52027 Wound Culture - LAB USE ONLY 14:00:21 CDT CPT-I/D I/D Abscess 09:16:37 CDT CPT-33209 Venipuncture Draw Fee 15:20:23 CDT CPT-16273 Microalbumin - LAB USE ONLY 16:02:19 CDT CPT-34087 CBC - LAB USE ONLY 16:02:19 CDT CPT-42481 Venipuncture Draw Fee 16:02:19 CDT CPT-G0438 Initial Annual Wellness Exam 08:10:28 CDT CPT-09493 Venipuncture Draw Fee 13:07:17 CDT CPT-G0008 Administration of Influenza Virus Vaccine 16:09:59 CDT CPT-10525 Fluzone Quadrivalent Intramuscular Suspension 0.5 ML 16: 09:59 CDT CPT-67765 Spec Collection and Handling Fee 15:05:50 CDT
--- OUTSIDE RECORDS SUMMARY | 2018-04-18 13:48 | XMS REPORT | Clinical Summary ---
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 Desmond Diaz DO Other malignant secondary hypertension Tachycardia 785.0 Active Rober Rodríguez X RAY NURSE Tachycardia, unspecified Insect bite, infected 919.5 Resolved Desmond Diaz DO Insect bite, nonvenomous, of other, multiple, and unspecified sites, infected Abscess, skin 682.9 Resolved Desmond Diaz DO Cellulitis and abscess of unspecified sites URI 465.9 Resolved Desmond Diaz DO Acute upper respiratory infections of unspecified site Hypertension 401.9 Active Rober Rodríguez X RAY NURSE Unspecified essential hypertension Sinusitis - acute [...] Hypogonadism, low testosterone 257.2 Active Erin Garsia X RAY NURSE Other testicular hypofunction Low back pain, chronic 724.2 Active Robbie Busby MD Lumbago Bronchitis-Acute 466.0 Active Desmond Dante Joe DO Acute bronchitis Polydipsia 783.5 Active Desmond Dante Joe DO Polydipsia Sinusitis ICD-461.9 Inactive 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 Low back pain, acute ICD-724.2 Inactive 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 Low back pain, chronic ICD-724.2 Inactive 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 Bronchitis, acute ICD-466.0 Inactive 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 Onychomycosis, toenails ICD-110.1 Inactive 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 Dizziness ICD-780.4 Inactive 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 Folliculitis ICD-704.8 Inactive 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 Pharyngitis-Acute ICD-462 Inactive 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 Fatigue ICD-780.79 Inactive 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 09/20 Hypertension, secondary, malignant ICD-405.09 Inactive 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 Insect bite, infected ICD-919.5 Inactive 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 Abscess, skin ICD-682.9 Inactive 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 URI ICD-465.9 Inactive 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 Sinusitis - acute ICD-461.9 Inactive 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 Acute confusion ICD-293.0 Inactive 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 Headache ICD-784.0 Inactive 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 09/20 Back pain ICD-724.5 Inactive 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 Rib pain, right sided ICD-786.50 Inactive 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 Myalgias ICD-729.1 Inactive 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 09/20 URI ICD-465.9 Inactive Emily Atwood TANNA Medication List Medication Instructions Start Date Stop Date Generic Name NDC Status Provider Patient Instruction PREDNISONE 20 MG ORAL TABLET two tabs by mouth today, then one tab by mouth days two and three PREDNISONE 55530924384 Active Desmond Diaz DO Active AZITHROMYCIN 250 MG ORAL TABLET 2 po qd x 1 day, then 1 po qd x 4 days 09/20 AZITHROMYCIN 01233136924 Active Desmond Diaz DO Active TOPIRAMATE 50 MG ORAL TABLET take 1 tab po BID for migraines. TOPIRAMATE 34381191987 No Longer Active Desmond Diaz DO Active CYCLOBENZAPRINE HCL 10 MG ORAL TABLET 1 po TID PRN muscle spasm/pain for 10 days CYCLOBENZAPRINE HCL 46005214744 No Longer Active Desmond Diaz DO Active GUAIFENESIN ER 600 MG ORAL TABLET EXTENDED RELEASE 12 HOUR 1 tab po q am 2016 GUAIFENESIN 46752353224 No Longer Active Robbie Busby MD Active DIVALPROEX SODIUM ER 500 MG ORAL TABLET EXTENDED RELEASE 24 HOUR Once daily DIVALPROEX SODIUM 95919577004 Active Robbie Busby MD Active DEPO-TESTOSTERONE 200 MG/ML INTRAMUSCULAR SOLUTION 1 IM Injections every 2 weeks for low testosterone TESTOSTERONE CYPIONATE 01364633630 Active Zulema Blank LPN Active FLUTICASONE PROPIONATE 50 MCG/ACT NASAL SUSPENSION 2 sprays per nostril bid for 1 week, then 1 spray bid FLUTICASONE PROPIONATE 45147138114 Active Rober Rodríguez APRN Active HYDRALAZINE HCL 25 MG ORAL TABLET Take 1 tab BID. HYDRALAZINE HCL 05361693080 Active Rober Rodríguez APRN Active VITAMIN D3 11481 UNIT ORAL TABLET 2 po weekly CHOLECALCIFEROL 88083842371 Active Robbie Busby MD Active OXYCODONE HCL ER 10 MG ORAL TABLET ER 12 HOUR ABUSE-DETERRENT 1 tab po 3 times qd. OXYCODONE HCL 04707995302 Active Robbie Busby MD Active NITROSTAT 0.4 MG SUBLINGUAL TABLET SUBLINGUAL PRN NITROGLYCERIN 12838432315 No Longer Active Robbie Busby MD Active LORATADINE 10 MG ORAL TABLET 1 tablet by mouth daily for congestion and allergies. LORATADINE 34647483436 No Longer Active Robbie Busby MD Active FLONASE 50 MCG/ACT NASAL SUSPENSION 1 spray each nostril twice daily for allergies and runny nose FLUTICASONE PROPIONATE 82744268453 No Longer Active Robbie Busby MD Active FIORICET 50-300-40 MG ORAL CAPSULE take 1 tab po qday prn migraines. [id number] 53275537350 No Longer Active Robbie Busby MD Active VITAMIN D3 38884 UNIT ORAL CAPSULE 2 CAPS PO WEEKLY CHOLECALCIFEROL 83129102049 No Longer Active Robbie Busby MD Active CYCLOBENZAPRINE HCL 10 MG ORAL TABLET 1 tablet by mouth three times daily as needed for muscle spasm/pain for 10 days CYCLOBENZAPRINE HCL 51851161162 No Longer Active Robbie Busby MD Active PREDNISONE 20 MG ORAL TABLET take 3 tabs daily for 3 days, 2 tabs daily for 3 days, 1 tab daily for 3 days, 1/2 tab daily for 4 days PREDNISONE 26584744313 No Longer Active Erin Garsia APRN Active CLONIDINE HCL 0.2 MG ORAL TABLET 1 TAB BY MOUTH EVERY 8 HOURS CLONIDINE HCL 83915709955 No Longer Active Erin Garsia APRN Active MECLIZINE HCL 25 MG ORAL TABLET one 4 times a day as needed for dizziness MECLIZINE HCL 46856966495 No Longer Active Erin Garsia APRN Active SPIRONOLACTONE 25 MG ORAL TABLET 4 tablets by mouth daily SPIRONOLACTONE 02873296474 No Longer Active Erin Garsia APRN Active LEVAQUIN 500 MG ORAL TABLET 1 tablet by mouth daily for 7 days LEVOFLOXACIN 39640419502 No Longer Active Erin Garsia APRN Active BACTRIM DS 800-160 MG ORAL TABLET 1 tab by mouth twice daily 2015 TRIMETHOPRIM-SULFAMETHOXAZOLE 83591511193 No Longer Active Robbie Busby MD Active HYDRALAZINE HCL 50 MG ORAL TABLET TWO BY MOUTH THREE TIMES DAILY HYDRALAZINE HCL 47329811721 No Longer Active Jillina Frazell X RAY NURSE Active HYDROCODONE-ACETAMINOPHEN 5-325 MG ORAL TABLET 1 tab by mouth BID prn back pain HYDROCODONE-ACETAMINOPHEN 71187572458 No Longer Active Jillina Frazell X RAY NURSE Active HYDROCHLOROTHIAZIDE TABLET Take one by mouth daily HYDROCHLOROTHIAZIDE TABS 54577794384 No Longer Active Jillina Frazell X RAY NURSE Active LAMISIL 125 MG ORAL PACKET 1 TAB PO DAILY TERBINAFINE HCL 01419966155 No Longer Active Jillina Frazell X RAY NURSE Active TRILEPTAL 150 MG ORAL TABLET 1 TAB PO Q HS OXCARBAZEPINE 35225561229 No Longer Active Jillina Frazell X RAY NURSE Active BETADINE 10 % EXTERNAL SOLUTION wash with solution to treat follicultis 07/29 POVIDONE-IODINE 35267349503 No Longer Active Jillina Frazell X RAY NURSE Active NYSTATIN 521306 UNIT/ML MOUTH/THROAT SUSPENSION 5mL po QID x 10 days NYSTATIN 50676738631 No Longer Active Erin Garsia APRN Active PREDNISONE 20 MG ORAL TABLET 1 tablet twice daily for 2 days, then 1 tablet once daily for 2 days PREDNISONE 17939458132 No Longer Active Robbie Busby MD Active CEFDINIR 300 MG ORAL CAPSULE Take 1 cap po bid x 10 days CEFDINIR 27627794972 No Longer Active Robbie Busby MD Active AMLODIPINE BESYLATE 10 MG ORAL TABLET 1 tablet by mouth daily AMLODIPINE BESYLATE 46430809778 Active Robbie Busby MD Active CARVEDILOL 25 MG ORAL TABLET 1 & 1/2 TAB po BID CARVEDILOL 98984472955 Active Robbie Busby MD Active NEXIUM 40 MG ORAL CAPSULE DELAYED RELEASE 1 cap by mouth daily ESOMEPRAZOLE MAGNESIUM 68444786077 Active Robbie Busby MD Active PROTONIX 40 MG INTRAVENOUS SOLUTION RECONSTITUTED 1 po qday for acid reflux PANTOPRAZOLE SODIUM 20586331827 No Longer Active Gali Negro Active KEFLEX 500 MG ORAL CAPSULE 1 po TID x 10 days CEPHALEXIN 83052535973 No Longer Active Robbie Busby MD Active TEMAZEPAM 15 MG ORAL CAPSULE 1 TAB PO Q HS TEMAZEPAM 74980629657 Active Robbie Busby MD Active ALPRAZOLAM 2 MG ORAL TABLET 1 TAB PO BID ALPRAZOLAM 34774317942 Active Robbie Busby MD Active FENOFIBRATE 145 MG ORAL TABLET Take one by mouth daily FENOFIBRATE 28621855414 No Longer Active Robbie Busby MD Active SPIRONOLACTONE 50 MG ORAL TABLET 1 tablet by mouth twice a day SPIRONOLACTONE 56175968442 No Longer Active Robbie Busby MD Active HYDRALAZINE HCL 25 MG ORAL TABLET 1 tablet by mouth tid for hypertension 2013 HYDRALAZINE HCL 26794624358 No Longer Active Robbie Busby MD Active VIIBRYD 40 MG ORAL TABLET take 1 tab po qday for depression. 2014 VILAZODONE HCL 64949702992 No Longer Active Robbie Busby MD Active TERBINAFINE HCL 250 MG ORAL TABLET 1 tab po qday for foot infection TERBINAFINE HCL 75577992855 No Longer Active Robbie Busby MD Active GABAPENTIN 300 MG ORAL CAPSULE 1 po q hs for nerve pain GABAPENTIN 08562566504 Active Robbie Busby MD Active CHERATUSSIN AC 100-10 MG/5ML ORAL SOLUTION 7.5 mL PO q 4-6 hrs PRN cough 2014 GUAIFENESIN-CODEINE 03926202875 No Longer Active Robbie Busby MD Active AZITHROMYCIN 250 MG ORAL TABLET 2 tablets PO today---then, 1 tablet PO daily x 4 more days (and 1 optional refill) AZITHROMYCIN 21435199867 No Longer Active Robbie Busby MD Active NORVASC 10 MG ORAL TABLET 1 tablet by mouth daily AMLODIPINE BESYLATE 62895253914 No Longer Active Alex ALVAREZ Active IMDUR 60 MG ORAL TABLET EXTENDED RELEASE 24 HOUR take 1 tab po qday for blood pressure ISOSORBIDE MONONITRATE 69971301753 Active Robbie Busby MD Active ISOSORBIDE DINITRATE 30 MG ORAL TABLET Take one by mouth daily ISOSORBIDE DINITRATE 33566138085 No Longer Active Robbie Busby MD Active VIIBRYD 40 MG ORAL TABLET 1 TA B PO DAILY VILAZODONE HCL 12555953872 Active Robbie Busby MD Active ZITHROMAX 250 MG ORAL TABLET 2 po today, then 1 po q days 2-5 AZITHROMYCIN 17517386945 No Longer Active Robbie Busby MD Active [id number] 0.3 MG/24HR TRANSDERMAL PATCH WEEKLY apply 2 patches q week for HTN CLONIDINE HCL 07324933684 Active Robbie Busby MD Active DOXAZOSIN MESYLATE 4 MG ORAL TABLET Take one by mouth daily DOXAZOSIN MESYLATE 28042946803 Active Robbie Busby MD Active TOPROL XL 200 MG ORAL TABLET EXTENDED RELEASE 24 HOUR Take one by mouth daily METOPROLOL SUCCINATE 24525233325 Active Robbie Busby MD Active VENLAFAXINE HCL ER 150 MG ORAL TABLET EXTENDED RELEASE 24 HOUR Take one by mouth daily VENLAFAXINE HCL 69126968764 Active Robbie Busby MD Active LIPITOR 40 MG ORAL TABLET Take one by mouth daily ATORVASTATIN CALCIUM 76900286637 Active Robbie Busby MD Active ISOSORBIDE DINITRATE 30 MG ORAL TABLET Take one by mouth daily ISOSORBIDE DINITRATE 30 MG ORAL TABLET 949105 ISOSORBIDE DINITRATE Inactive NORVASC 10 MG ORAL TABLET 1 tablet by mouth daily NORVASC 10 MG ORAL TABLET 280958 AMLODIPINE BESYLATE Inactive AZITHROMYCIN 250 MG ORAL TABLET 2 tablets PO today---then, 1 tablet PO daily x 4 more days (and 1 optional refill) AZITHROMYCIN 250 MG ORAL TABLET 709981 AZITHROMYCIN Inactive CHERATUSSIN AC 100-10 MG/5ML ORAL SOLUTION 7.5 mL PO q 4-6 hrs PRN cough 2014 CHERATUSSIN AC 100-10 MG/5ML ORAL SOLUTION 683356 GUAIFENESIN-CODEINE Inactive VIIBRYD 40 MG ORAL TABLET take 1 tab po qday for depression. 2014 VIIBRYD 40 MG ORAL TABLET VILAZODONE HCL Inactive HYDRALAZINE HCL 25 MG ORAL TABLET 1 tablet by mouth tid for hypertension 2013 HYDRALAZINE HCL 25 MG ORAL TABLET 117656 HYDRALAZINE HCL Inactive SPIRONOLACTONE 50 MG ORAL TABLET 1 tablet by mouth twice a day SPIRONOLACTONE 50 MG ORAL TABLET 339832 SPIRONOLACTONE Inactive FENOFIBRATE 145 MG ORAL TABLET Take one by mouth daily FENOFIBRATE 145 MG ORAL TABLET 278241 FENOFIBRATE Inactive PROTONIX 40 MG INTRAVENOUS SOLUTION RECONSTITUTED 1 po qday for acid reflux PROTONIX 40 MG INTRAVENOUS SOLUTION RECONSTITUTED 111326 PANTOPRAZOLE SODIUM Inactive CEFDINIR 300 MG ORAL CAPSULE Take 1 cap po bid x 10 days CEFDINIR 300 MG ORAL CAPSULE 723031 CEFDINIR Inactive PREDNISONE 20 MG ORAL TABLET 1 tablet twice daily for 2 days, then 1 tablet once daily for 2 days PREDNISONE 20 MG ORAL TABLET 154744 PREDNISONE Inactive NYSTATIN 112886 UNIT/ML MOUTH/THROAT SUSPENSION 5mL po QID x 10 days NYSTATIN 143251 UNIT/ML MOUTH/THROAT SUSPENSION 646941 NYSTATIN Inactive BETADINE 10 % EXTERNAL SOLUTION wash with solution to treat follicultis 07/29 BETADINE 10 % EXTERNAL SOLUTION 6733622 POVIDONE-IODINE Inactive TRILEPTAL 150 MG ORAL TABLET 1 TAB PO Q HS TRILEPTAL 150 MG ORAL TABLET 081102 OXCARBAZEPINE Inactive LAMISIL 125 MG ORAL PACKET 1 TAB PO DAILY LAMISIL 125 MG ORAL PACKET TERBINAFINE HCL Inactive HYDROCHLOROTHIAZIDE TABLET Take one by mouth daily HYDROCHLOROTHIAZIDE TABLET HYDROCHLOROTHIAZIDE TABS Inactive HYDROCODONE-ACETAMINOPHEN 5-325 MG ORAL TABLET 1 tab by mouth BID prn back pain HYDROCODONE-ACETAMINOPHEN 5-325 MG ORAL TABLET 988239 HYDROCODONE-ACETAMINOPHEN Inactive HYDRALAZINE HCL 50 MG ORAL TABLET TWO BY MOUTH THREE TIMES DAILY HYDRALAZINE HCL 50 MG ORAL TABLET 238732 HYDRALAZINE HCL Inactive LEVAQUIN 500 MG ORAL TABLET 1 tablet by mouth daily for 7 days LEVAQUIN 500 MG ORAL TABLET 231759 LEVOFLOXACIN Inactive SPIRONOLACTONE 25 MG ORAL TABLET 4 tablets by mouth daily SPIRONOLACTONE 25 MG ORAL TABLET 734234 SPIRONOLACTONE Inactive MECLIZINE HCL 25 MG ORAL TABLET one 4 times a day as needed for dizziness MECLIZINE HCL 25 MG ORAL TABLET 214520 MECLIZINE HCL Inactive CLONIDINE HCL 0.2 MG ORAL TABLET 1 TAB BY MOUTH EVERY 8 HOURS CLONIDINE HCL 0.2 MG ORAL TABLET 053308 CLONIDINE HCL Inactive CYCLOBENZAPRINE HCL 10 MG ORAL TABLET 1 tablet by mouth three times daily as needed for muscle spasm/pain for 10 days CYCLOBENZAPRINE HCL 10 MG ORAL TABLET 937180 CYCLOBENZAPRINE HCL Inactive VITAMIN D3 77623 UNIT ORAL CAPSULE 2 CAPS PO WEEKLY VITAMIN D3 58892 UNIT ORAL CAPSULE CHOLECALCIFEROL Inactive FIORICET 50-300-40 MG ORAL CAPSULE take 1 tab po qday prn migraines. FIORICET 50-300-40 MG ORAL CAPSULE 524927 BUTALBITAL-APAP- CAFFEINE Inactive FLONASE 50 MCG/ACT NASAL SUSPENSION 1 spray each nostril twice daily for allergies and runny nose FLONASE 50 MCG/ACT NASAL SUSPENSION 2984845 FLUTICASONE PROPIONATE Inactive LORATADINE 10 MG ORAL TABLET 1 tablet by mouth daily for congestion and allergies. LORATADINE 10 MG ORAL TABLET 598027 LORATADINE Inactive NITROSTAT 0.4 MG SUBLINGUAL TABLET SUBLINGUAL PRN NITROSTAT 0.4 MG SUBLINGUAL TABLET SUBLINGUAL 926573 NITROGLYCERIN Inactive GUAIFENESIN ER 600 MG ORAL TABLET EXTENDED RELEASE 12 HOUR 1 tab po q am 2016 GUAIFENESIN ER 600 MG ORAL TABLET EXTENDED RELEASE 12 HOUR GUAIFENESIN Inactive CYCLOBENZAPRINE HCL 10 MG ORAL TABLET 1 po TID PRN muscle spasm/pain for 10 days CYCLOBENZAPRINE HCL 10 MG ORAL TABLET 826828 CYCLOBENZAPRINE HCL Inactive TOPIRAMATE 50 MG ORAL TABLET take 1 tab po BID for migraines. TOPIRAMATE 50 MG ORAL TABLET 324618 TOPIRAMATE Inactive ZITHROMAX 250 MG ORAL TABLET 2 po today, then 1 po q days 2-5 ZITHROMAX 250 MG ORAL TABLET 532836 AZITHROMYCIN Inactive TERBINAFINE HCL 250 MG ORAL TABLET 1 tab po qday for foot infection TERBINAFINE HCL 250 MG ORAL TABLET 523152 TERBINAFINE HCL Inactive KEFLEX 500 MG ORAL CAPSULE 1 po TID x 10 days KEFLEX 500 MG ORAL CAPSULE 712035 CEPHALEXIN Inactive BACTRIM DS 800-160 MG ORAL TABLET 1 tab by mouth twice daily 2015 BACTRIM DS 800-160 MG ORAL TABLET 174425 TRIMETHOPRIM- SULFAMETHOXAZOLE Inactive PREDNISONE 20 MG ORAL TABLET take 3 tabs daily for 3 days, 2 tabs daily for 3 days, 1 tab daily for 3 days, 1/2 tab daily for 4 days PREDNISONE 20 MG ORAL TABLET 985610 PREDNISONE Inactive Advance Directives Directive Description Start [...] AUTO - Chemistry sodium, serum 142 mmol/L 731-828 8049/07/17 carbon dioxide, venous blood 28.2 mmol/L 21.0-32.0 [...] % 11.0-15.0 platelet count 185 THOUSAND/UL 10*3/mm3 821-150 4696/04/14 mean platelet volume 10.9 fL 7.5-12.5 Lab Report: HGBA1C, Basic Metabolic Panel - Chemistry hemoglobin A1C, blood, as % of total hemoglobin 6.9 % 4.3-6.0 sodium, serum 139 mmol/L 872-311 5411/01/04 potassium, serum 3.9 mmol/L 3.5-5.2 chloride, serum 103 mmol/L 98-107 carbon dioxide, venous blood 26.9 mmol/L 21.0-32.0 blood glucose 106 mg/dL 65-110 calcium, serum 9.0 mg/dL 8.5-10.1 urea nitrogen, blood 20 mg/dL 7-18 creatinine, serum 1.46 mg/dL 0.60-1.30 Lab Report: LIPID PANEL, TSH/899, T4, FREE/866 - Chemistry cholesterol, serum 220 mg/dL 855-498 1137/04/14 HDL cholesterol, serum 30 mg/dL > OR=40 [...] 1.80 ng/mL 0.00-4.00 Lab Report: VITAMIN D, 25-HYDROXY/15842 - Chemistry vitamin D 25-hydroxy, serum 25 ng/mL 30-100 Office Visit: Confusion, dizziness after fall - Basic LDL target level 130 mg/dL Office Visit: Confusion, dizziness after fall - Chemistry HDL cholesterol, serum, target level 40 mg/dL triglyceride, target level 150 mg/dL cholesterol, target level 200 mg/dL Encounters Code Encounter Date Provider Facility CPT-25817 Level 4 Est. Patient 15:23:44 BULLET [employer]IC[employer] Desmond Diaz DO [facility] CPT-56884 Level 3 Est. Patient 15:40:49 CDT Robbie Busby MD [facility] CPT-96622 Level 4 Est. Patient 15:18:19 CDT Robbie Busby MD [facility] CPT-68015 Level 3 Est. Patient 09:00:37 CDT Rober Rodríguez [facility] CPT-43243 Level 3 Est. Patient 16:07:10 CDT Robbie Busby MD [facility] CPT-86293 Level 4 Est. Patient 11:56:16 CDT Erin Garsia [facility] CPT-49976 Level 3 Est. Patient 17:48:02 CDT Robbie Busby MD [facility] CPT-67166 Level 4 Est. Patient 12:00:49 [employer]LET [employer] Rober Rodríguez [facility] CPT-78811 Level 3 Est. Patient 09:16:37 CDT Robbie Busby MD [facility] CPT-78684 Level 3 Est. Patient 19:38:43 CDT Robbie Busby MD [facility] CPT-98567 Level 3 Est. Patient 11:53:38 CDT Robbie Busby MD [facility] CPT-26539 Level 4 Est. Patient 12:52:22 CDT Rober Rodríguez [facility] CPT-10155 Level 4 Est. Patient 22:55:17 CDT Robbie Busby MD [facility] CPT-94758 Level 3 Est. Patient 12:38:24 CDT Desmond Diaz DO [facility] CPT-19661 Level 4 Est. Patient 11:25:03 B[employer] Robbie Busby MD [facility] CPT-29383 Level 4 Est. Patient 14:50:10 CDT Robbie Busby MD [facility] CPT-78540 Level 4 Est. Patient 23:30:43 CDT Robbie Busby MD [facility] CPT-67621 Level 4 Est. Patient 10:30:43 CDT Robbie Busby MD [facility] CPT-17457 Level 3 Est. Patient 17:08:12 CDT Alex Shaw [facility] CPT-65221 Level 4 Est. Patient 17:51:38 CDT Robbie Busby MD [facility] CPT-73272 Level 4 Est. Patient 14:00:21 CDT Robbie Busby MD [facility] CPT-14269 Level 4 Est. Patient 12:46:48 CDT Robbie Busby MD [facility] CPT-41966 Level 4 Est. Patient 13:34:33 CDT Robbie Busby MD [facility] CPT-72527 Level 4 Est. Patient 16:58:28 CDT Robbie Busby MD [facility] CPT-18132 Level 3 Est. Patient 19:36:53 CDT Alex Shaw [facility] CPT-66463 Level 3 Est. Patient 12:58:15 CDT Robbie Busby MD [facility] Procedures Code Procedure Name Date Entry Date Standard Description CPT-J1071 Depo Testosterone 200mg 15:33:58 [employer] CPT-07849 Abx/Therapy Injection 15:33:58 [employer] CPT-J1071 Depo Testosterone 200mg 09:38:36 [employer] CPT-24179 Abx/Therapy Injection 09:38:36 B[employer] CPT-J1071 Depo Testosterone 200mg 10:22:56 [employer] CPT-99906 Abx/Therapy Injection 10:22:56 [employer] CPT-J1071 Depo Testosterone 200mg 15:40:23 CDT CPT-61165 Abx/Therapy Injection 15:40:23 CDT CPT-J1071 Depo Testosterone 200mg 14:20:43 CDT CPT-98926 Abx/Therapy Injection 14:20:43 CDT CPT-J1071 Depo Testosterone 200mg 14:17:22 CDT CPT-09550 Abx/Therapy Injection 14:17:22 CDT CPT-J1071 Depo Testosterone 200mg 09:03:53 CDT CPT-83536 Abx/Therapy Injection 09:03:53 CDT CPT-G0439 [facility] Annual Wellness Exam 16:47:44 CDT CPT-J1071 Depo Testosterone 200mg 09:06:28 CDT CPT-33487 Abx/Therapy Injection 09:06:28 CDT CPT-J1071 Depo Testosterone 200mg 08:30:01 CDT CPT-13978 Abx/Therapy Injection 08:30:01 CDT CPT-J1071 Depo Testosterone 200mg 08:24:00 CDT CPT-31710 Abx/Therapy Injection 08:24:00 CDT CPT-08910 Venipuncture Draw Fee 14:39:06 CDT CPT-99039 Ribs unilateral 2V - XRAY USE ONLY 12:10:11 CDT CPT-52381 First Vx - Ix admin for Medicare patients 16:32:53 CDT CPT-32333 Boostrix Intramuscular Suspension 5-2.5-18.5 16:32:53 CDT CPT-99187 TB Skin Test 11:42:28 CDT CPT-72226 Tdap 7yrs or > 11:42:28 CDT CPT-J0696 Rocephin 1000 mg (Ceftriaxone) 17:43:43 B[employer]LET [employer] CPT-J1040 Depo Medrol 80 mg (Methyl Prednisolone Acetate) 17:43: 43 [employer] CPT-J1100 Decadron 8mg (Dexamethasone) 17:43:42 B[employer]LET [employer] CPT-54664 Abx/Therapy Injection 17:43:42 BULLET [employer] M[employer]ER CPT-89829 Abx/Therapy Injection 17:43:42 BULLET [employer] M[employer] CPT-J1040 Depo Medrol 80 mg (Methyl Prednisolone Acetate) 09:43: 34 B[employer] CPT-J1100 Decadron 8mg (Dexamethasone) 09:43:34 BULLET [employer] M[employer] CPT-J0696 Rocephin 1gm Inj Solr 09:43:34 B[employer]LET [employer] CPT-72961 Wound Culture - LAB USE ONLY 14:00:21 CDT CPT-I/D I/D Abscess 09:16:37 CDT CPT-32163 Venipuncture Draw Fee 15:20:23 CDT CPT-56978 Microalbumin - LAB USE ONLY 16:02:19 CDT CPT-87061 CBC - LAB USE ONLY 16:02:19 CDT CPT-43181 Venipuncture Draw Fee 16:02:19 CDT CPT-G0438 Initial Annual Wellness Exam 08:10:28 CDT CPT-79149 Venipuncture Draw Fee 13:07:17 CDT CPT-G0008 Administration of Influenza Virus Vaccine 16:09:59 CDT CPT-30890 Fluzone Quadrivalent Intramuscular Suspension 0.5 ML 16: 09:59 CDT CPT-59348 Spec Collection and Handling Fee 15:05:50 CDT
--- OUTSIDE RECORDS SUMMARY | 2018-04-18 13:50 | XMS REPORT | Clinical Summary ---
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 Desmond Diaz DO Other malignant secondary hypertension Tachycardia 785.0 Active Rober Rodríguez ESTIMATOR AND DRAFTER SUPERVISOR Tachycardia, unspecified Insect bite, infected 919.5 Resolved Desmond Diaz DO Insect bite, nonvenomous, of other, multiple, and unspecified sites, infected Abscess, skin 682.9 Resolved Desmond Diaz DO Cellulitis and abscess of unspecified sites URI 465.9 Resolved Desmond Diaz DO Acute upper respiratory infections of unspecified site Hypertension 401.9 Active Rober Rodríguez ESTIMATOR AND DRAFTER SUPERVISOR Unspecified essential hypertension Sinusitis - acute [...] Hypogonadism, low testosterone 257.2 Active Erin Mai ESTIMATOR AND DRAFTER SUPERVISOR Other testicular hypofunction Low back pain, [...] 36.0-36.9, adult Sinusitis ICD-461.9 Inactive Emily Atwood TENANT SELECTOR 2017 Low back pain, acute ICD-724.2 Inactive Emily Atwood TENANT SELECTOR Low back pain, chronic ICD-724.2 Inactive Emily Atwood TENANT SELECTOR Bronchitis, acute ICD-466.0 Inactive Emily Atwood TENANT SELECTOR Onychomycosis, toenails ICD-110.1 Inactive Emily Atwood TENANT SELECTOR Dizziness ICD-780.4 Inactive Emily Atwood TENANT SELECTOR 2017 Folliculitis ICD-704.8 Inactive Emily Atwood TENANT SELECTOR Pharyngitis-Acute ICD-462 Inactive Emily Atwood TENANT SELECTOR Fatigue ICD-780.79 Inactive Emily Atwood TENANT SELECTOR 09/20 Hypertension, secondary, malignant ICD-405.09 Inactive Emily Atwood TENANT SELECTOR Insect bite, infected ICD-919.5 Inactive Emily Atwood TENANT SELECTOR Abscess, skin ICD-682.9 Inactive Emily Atwood TENANT SELECTOR URI ICD-465.9 Inactive Emily Atwood TENANT SELECTOR Sinusitis - acute ICD-461.9 Inactive Emily Atwood TENANT SELECTOR Acute confusion ICD-293.0 Inactive Emily Atwood TENANT SELECTOR Headache ICD-784.0 Inactive Emily Atwood TENANT SELECTOR 09/20 Back pain ICD-724.5 Inactive Emily Atwood TENANT SELECTOR 2017 Rib pain, right sided ICD-786.50 Inactive Emily Atwood TENANT SELECTOR Myalgias ICD-729.1 Inactive Emily Atwood TENANT SELECTOR 09/20 URI ICD-465.9 Inactive Emily Atwood TENANT SELECTOR Bronchitis-Acute ICD-466.0 Inactive Desmond Diaz DO Medication List Medication Instructions Start Date Stop Date Generic Name NDC Status Provider Patient Instruction IMDUR 60 MG ORAL TABLET EXTENDED RELEASE 24 HOUR 1 po q day ISOSORBIDE MONONITRATE 26301244055 Active Emma Hernandez Active METOPROLOL SUCCINATE ER 200 MG ORAL TABLET EXTENDED RELEASE 24 HOUR take 1 tab po qday for high blood pressure and rapid pulse METOPROLOL SUCCINATE 68716848281 Active Robbie Busby MD Active [id number] 0.3 MG/24HR TRANSDERMAL PATCH WEEKLY apply 2 patches q week for HTN CLONIDINE HCL 14310485209 No Longer Active Robbie Busby MD Active IMDUR 60 MG ORAL TABLET EXTENDED RELEASE 24 HOUR take 1 tab po qday for blood pressure ISOSORBIDE MONONITRATE 60591415009 No Longer Active Robbie Busby MD Active TEMAZEPAM 15 MG ORAL CAPSULE 1 TAB PO Q HS TEMAZEPAM 61955584839 No Longer Active Robbie Busby MD Active TOPIRAMATE 50 MG ORAL TABLET 1 po BID for migraines TOPIRAMATE 34053807807 No Longer Active Robbie Busby MD Active CYCLOBENZAPRINE HCL 10 MG ORAL TABLET 1 tablet by mouth three times daily as needed for muscle spasm/pain CYCLOBENZAPRINE HCL 48761570010 No Longer Active Robbie Busby MD Active TOPROL XL 200 MG ORAL TABLET EXTENDED RELEASE 24 HOUR Take one by mouth daily METOPROLOL SUCCINATE 41266620778 No Longer Active Robbie Busby MD Active METFORMIN HCL 500 MG ORAL TABLET 1 tablet by mouth daily for diabetes type 2 METFORMIN HCL 63923706472 Active Robbie Busby MD Active SINGULAIR 10 MG ORAL TABLET 1 po qday for allergies. MONTELUKAST SODIUM 55168883299 No Longer Active Robbie Busby MD Active PREDNISONE 20 MG ORAL TABLET two tabs by mouth today, then one tab by mouth days two and three PREDNISONE 12005781053 No Longer Active Robbie Busby MD Active AZITHROMYCIN 250 MG ORAL TABLET 2 po qd x 1 day, then 1 po qd x 4 days 09/20 AZITHROMYCIN 64070174440 No Longer Active Desmond Diaz DO Active TOPIRAMATE 50 MG ORAL TABLET take 1 tab po BID for migraines. TOPIRAMATE 74783815667 No Longer Active Desmond Diaz DO Active CYCLOBENZAPRINE HCL 10 MG ORAL TABLET 1 po TID PRN muscle spasm/pain for 10 days CYCLOBENZAPRINE HCL 27704006420 No Longer Active Desmond Diaz DO Active GUAIFENESIN ER 600 MG ORAL TABLET EXTENDED RELEASE 12 HOUR 1 tab po q am 2016 GUAIFENESIN 55538773136 No Longer Active Robbie Busby MD Active DIVALPROEX SODIUM ER 500 MG ORAL TABLET EXTENDED RELEASE 24 HOUR Once daily DIVALPROEX SODIUM 12809595499 Active Robbie Busby MD Active DEPO-TESTOSTERONE 200 MG/ML INTRAMUSCULAR SOLUTION 1 IM Injections every 2 weeks for low testosterone TESTOSTERONE CYPIONATE 08060870676 Active Zulema Blank LPN Active FLUTICASONE PROPIONATE 50 MCG/ACT NASAL SUSPENSION 2 sprays per nostril bid for 1 week, then 1 spray bid FLUTICASONE PROPIONATE 44953127541 Active Rober Rodríguez APRN Active HYDRALAZINE HCL 25 MG ORAL TABLET Take 1 tab BID. HYDRALAZINE HCL 70728422034 Active Rober Rodríguez APRN Active VITAMIN D3 25351 UNIT ORAL TABLET 2 po weekly CHOLECALCIFEROL 32419573500 Active Robbie Busby MD Active OXYCODONE HCL ER 10 MG ORAL TABLET ER 12 HOUR ABUSE-DETERRENT 1 tab po 3 times qd. OXYCODONE HCL 96895108642 Active Robbie Busby MD Active NITROSTAT 0.4 MG SUBLINGUAL TABLET SUBLINGUAL PRN NITROGLYCERIN 42620941484 No Longer Active Robbie Busby MD Active LORATADINE 10 MG ORAL TABLET 1 tablet by mouth daily for congestion and allergies. LORATADINE 67749197975 No Longer Active Robbie Busby MD Active FLONASE 50 MCG/ACT NASAL SUSPENSION 1 spray each nostril twice daily for allergies and runny nose FLUTICASONE PROPIONATE 61728239210 No Longer Active Robbie Busby MD Active FIORICET 50-300-40 MG ORAL CAPSULE take 1 tab po qday prn migraines. [id number] 95579464771 No Longer Active Robbie Busby MD Active VITAMIN D3 31571 UNIT ORAL CAPSULE 2 CAPS PO WEEKLY CHOLECALCIFEROL 77475970798 No Longer Active Robbie Busby MD Active CYCLOBENZAPRINE HCL 10 MG ORAL TABLET 1 tablet by mouth three times daily as needed for muscle spasm/pain for 10 days CYCLOBENZAPRINE HCL 72626233862 No Longer Active Robbie Busby MD Active PREDNISONE 20 MG ORAL TABLET take 3 tabs daily for 3 days, 2 tabs daily for 3 days, 1 tab daily for 3 days, 1/2 tab daily for 4 days PREDNISONE 29276239526 No Longer Active Erin Mai APRN Active CLONIDINE HCL 0.2 MG ORAL TABLET 1 TAB BY MOUTH EVERY 8 HOURS CLONIDINE HCL 24545829887 No Longer Active Erin Arell ESTIMATOR AND DRAFTER SUPERVISOR Active MECLIZINE HCL 25 MG ORAL TABLET one 4 times a day as needed for dizziness MECLIZINE HCL 23543586592 No Longer Active Erin Arell ESTIMATOR AND DRAFTER SUPERVISOR Active SPIRONOLACTONE 25 MG ORAL TABLET 4 tablets by mouth daily SPIRONOLACTONE 30411527525 No Longer Active Erin Arell ESTIMATOR AND DRAFTER SUPERVISOR Active LEVAQUIN 500 MG ORAL TABLET 1 tablet by mouth daily for 7 days LEVOFLOXACIN 83292234124 No Longer Active Erin Arell ESTIMATOR AND DRAFTER SUPERVISOR Active BACTRIM DS 800-160 MG ORAL TABLET 1 tab by mouth twice daily 2015 TRIMETHOPRIM-SULFAMETHOXAZOLE 97504161857 No Longer Active Robbie Busby MD Active HYDRALAZINE HCL 50 MG ORAL TABLET TWO BY MOUTH THREE TIMES DAILY HYDRALAZINE HCL 52795741395 No Longer Active Jillina Frazell ESTIMATOR AND DRAFTER SUPERVISOR Active HYDROCODONE-ACETAMINOPHEN 5-325 MG ORAL TABLET 1 tab by mouth BID prn back pain HYDROCODONE-ACETAMINOPHEN 79587084506 No Longer Active Jillina Frazell ESTIMATOR AND DRAFTER SUPERVISOR Active HYDROCHLOROTHIAZIDE TABLET Take one by mouth daily HYDROCHLOROTHIAZIDE TABS 24188945145 No Longer Active Jillina Frazell ESTIMATOR AND DRAFTER SUPERVISOR Active LAMISIL 125 MG ORAL PACKET 1 TAB PO DAILY TERBINAFINE HCL 49153245743 No Longer Active Jillina Frazell ESTIMATOR AND DRAFTER SUPERVISOR Active TRILEPTAL 150 MG ORAL TABLET 1 TAB PO Q HS OXCARBAZEPINE 07002675299 No Longer Active Jillina Frazell ESTIMATOR AND DRAFTER SUPERVISOR Active BETADINE 10 % EXTERNAL SOLUTION wash with solution to treat follicultis 07/29 POVIDONE-IODINE 74613422220 No Longer Active Jillina Frazell ESTIMATOR AND DRAFTER SUPERVISOR Active NYSTATIN 114908 UNIT/ML MOUTH/THROAT SUSPENSION 5mL po QID x 10 days NYSTATIN 35853478188 No Longer Active Erin Miguelzane RAGUELLO Active PREDNISONE 20 MG ORAL TABLET 1 tablet twice daily for 2 days, then 1 tablet once daily for 2 days PREDNISONE 79959605984 No Longer Active Robbie Busby MD Active CEFDINIR 300 MG ORAL CAPSULE Take 1 cap po bid x 10 days CEFDINIR 97693134933 No Longer Active Robbie Busby MD Active AMLODIPINE BESYLATE 10 MG ORAL TABLET 1 tablet by mouth daily AMLODIPINE BESYLATE 41774344934 Active Robbie Busby MD Active CARVEDILOL 25 MG ORAL TABLET 1 & 1/2 TAB po BID CARVEDILOL 63622369568 Active Robbie Busby MD Active NEXIUM 40 MG ORAL CAPSULE DELAYED RELEASE 1 cap by mouth daily ESOMEPRAZOLE MAGNESIUM 97528265451 Active Robbie Busby MD Active PROTONIX 40 MG INTRAVENOUS SOLUTION RECONSTITUTED 1 po qday for acid reflux PANTOPRAZOLE SODIUM 95045255038 No Longer Active Gali Raida Active KEFLEX 500 MG ORAL CAPSULE 1 po TID x 10 days CEPHALEXIN 40701783780 No Longer Active Robbie Busby MD Active ALPRAZOLAM 2 MG ORAL TABLET 1 TAB PO BID ALPRAZOLAM 37231732839 Active Robbie Busby MD Active FENOFIBRATE 145 MG ORAL TABLET Take one by mouth daily FENOFIBRATE 29505558224 No Longer Active Robbie Busby MD Active SPIRONOLACTONE 50 MG ORAL TABLET 1 tablet by mouth twice a day SPIRONOLACTONE 18080232703 No Longer Active Robbie Busby MD Active HYDRALAZINE HCL 25 MG ORAL TABLET 1 tablet by mouth tid for hypertension 2013 HYDRALAZINE HCL 68612732968 No Longer Active Robbie Busby MD Active VIIBRYD 40 MG ORAL TABLET take 1 tab po qday for depression. 2014 VILAZODONE HCL 58714235228 No Longer Active Robbie uBsby MD Active TERBINAFINE HCL 250 MG ORAL TABLET 1 tab po qday for foot infection TERBINAFINE HCL 07017734840 No Longer Active Robbie Busby MD Active GABAPENTIN 300 MG ORAL CAPSULE 1 po q hs for nerve pain GABAPENTIN 00644910151 Active Robbie Busby MD Active CHERATUSSIN AC 100-10 MG/5ML ORAL SOLUTION 7.5 mL PO q 4-6 hrs PRN cough 2014 GUAIFENESIN-CODEINE 33782561110 No Longer Active Robbie Busyb MD Active AZITHROMYCIN 250 MG ORAL TABLET 2 tablets PO today---then, 1 tablet PO daily x 4 more days (and 1 optional refill) AZITHROMYCIN 61299753070 No Longer Active Robbie Busby MD Active NORVASC 10 MG ORAL TABLET 1 tablet by mouth daily AMLODIPINE BESYLATE 54899311659 No Longer Active Alex ALVAREZ Active ISOSORBIDE DINITRATE 30 MG ORAL TABLET Take one by mouth daily ISOSORBIDE DINITRATE 83394625229 No Longer Active Robbie Busby MD Active VIIBRYD 40 MG ORAL TABLET 1 TA B PO DAILY VILAZODONE HCL 66626484065 Active Robbie Busby MD Active ZITHROMAX 250 MG ORAL TABLET 2 po today, then 1 po q days 2-5 AZITHROMYCIN 55957977779 No Longer Active Robbie Busby MD Active DOXAZOSIN MESYLATE 4 MG ORAL TABLET Take one by mouth daily DOXAZOSIN MESYLATE 86507852823 Active Robbie Busby MD Active VENLAFAXINE HCL ER 150 MG ORAL TABLET EXTENDED RELEASE 24 HOUR Take one by mouth daily VENLAFAXINE HCL 89806773649 Active Robbie Busby MD Active LIPITOR 40 MG ORAL TABLET Take one by mouth daily ATORVASTATIN CALCIUM 74993828069 Active Robbie Busby MD Active ISOSORBIDE DINITRATE 30 MG ORAL TABLET Take one by mouth daily ISOSORBIDE DINITRATE 30 MG ORAL TABLET 805525 ISOSORBIDE DINITRATE Inactive NORVASC 10 MG ORAL TABLET 1 tablet by mouth daily NORVASC 10 MG ORAL TABLET 287304 AMLODIPINE BESYLATE Inactive AZITHROMYCIN 250 MG ORAL TABLET 2 tablets PO today---then, 1 tablet PO daily x 4 more days (and 1 optional refill) AZITHROMYCIN 250 MG ORAL TABLET 470544 AZITHROMYCIN Inactive CHERATUSSIN AC 100-10 MG/5ML ORAL SOLUTION 7.5 mL PO q 4-6 hrs PRN cough 2014 CHERATUSSIN AC 100-10 MG/5ML ORAL SOLUTION 134405 GUAIFENESIN-CODEINE Inactive VIIBRYD 40 MG ORAL TABLET take 1 tab po qday for depression. 2014 VIIBRYD 40 MG ORAL TABLET VILAZODONE HCL Inactive HYDRALAZINE HCL 25 MG ORAL TABLET 1 tablet by mouth tid for hypertension 2013 HYDRALAZINE HCL 25 MG ORAL TABLET 052290 HYDRALAZINE HCL Inactive SPIRONOLACTONE 50 MG ORAL TABLET 1 tablet by mouth twice a day SPIRONOLACTONE 50 MG ORAL TABLET 452198 SPIRONOLACTONE Inactive FENOFIBRATE 145 MG ORAL TABLET Take one by mouth daily FENOFIBRATE 145 MG ORAL TABLET 745783 FENOFIBRATE Inactive PROTONIX 40 MG INTRAVENOUS SOLUTION RECONSTITUTED 1 po qday for acid reflux PROTONIX 40 MG INTRAVENOUS SOLUTION RECONSTITUTED 310843 PANTOPRAZOLE SODIUM Inactive CEFDINIR 300 MG ORAL CAPSULE Take 1 cap po bid x 10 days CEFDINIR 300 MG ORAL CAPSULE 011571 CEFDINIR Inactive PREDNISONE 20 MG ORAL TABLET 1 tablet twice daily for 2 days, then 1 tablet once daily for 2 days PREDNISONE 20 MG ORAL TABLET 720951 PREDNISONE Inactive NYSTATIN 609404 UNIT/ML MOUTH/THROAT SUSPENSION 5mL po QID x 10 days NYSTATIN 384333 UNIT/ML MOUTH/THROAT SUSPENSION 621839 NYSTATIN Inactive BETADINE 10 % EXTERNAL SOLUTION wash with solution to treat follicultis 07/29 BETADINE 10 % EXTERNAL SOLUTION 8929304 POVIDONE-IODINE Inactive TRILEPTAL 150 MG ORAL TABLET 1 TAB PO Q HS TRILEPTAL 150 MG ORAL TABLET 938623 OXCARBAZEPINE Inactive LAMISIL 125 MG ORAL PACKET 1 TAB PO DAILY LAMISIL 125 MG ORAL PACKET TERBINAFINE HCL Inactive HYDROCHLOROTHIAZIDE TABLET Take one by mouth daily HYDROCHLOROTHIAZIDE TABLET HYDROCHLOROTHIAZIDE TABS Inactive HYDROCODONE-ACETAMINOPHEN 5-325 MG ORAL TABLET 1 tab by mouth BID prn back pain HYDROCODONE-ACETAMINOPHEN 5-325 MG ORAL TABLET 980915 HYDROCODONE-ACETAMINOPHEN Inactive HYDRALAZINE HCL 50 MG ORAL TABLET TWO BY MOUTH THREE TIMES DAILY HYDRALAZINE HCL 50 MG ORAL TABLET 225330 HYDRALAZINE HCL Inactive LEVAQUIN 500 MG ORAL TABLET 1 tablet by mouth daily for 7 days LEVAQUIN 500 MG ORAL TABLET 637494 LEVOFLOXACIN Inactive SPIRONOLACTONE 25 MG ORAL TABLET 4 tablets by mouth daily SPIRONOLACTONE 25 MG ORAL TABLET 425667 SPIRONOLACTONE Inactive MECLIZINE HCL 25 MG ORAL TABLET one 4 times a day as needed for dizziness MECLIZINE HCL 25 MG ORAL TABLET 364262 MECLIZINE HCL Inactive CLONIDINE HCL 0.2 MG ORAL TABLET 1 TAB BY MOUTH EVERY 8 HOURS CLONIDINE HCL 0.2 MG ORAL TABLET 147426 CLONIDINE HCL Inactive CYCLOBENZAPRINE HCL 10 MG ORAL TABLET 1 tablet by mouth three times daily as needed for muscle spasm/pain for 10 days CYCLOBENZAPRINE HCL 10 MG ORAL TABLET 991744 CYCLOBENZAPRINE HCL Inactive VITAMIN D3 91219 UNIT ORAL CAPSULE 2 CAPS PO WEEKLY VITAMIN D3 91338 UNIT ORAL CAPSULE CHOLECALCIFEROL Inactive FIORICET 50-300-40 MG ORAL CAPSULE take 1 tab po qday prn migraines. FIORICET 50-300-40 MG ORAL CAPSULE 630345 BUTALBITAL-APAP- CAFFEINE Inactive FLONASE 50 MCG/ACT NASAL SUSPENSION 1 spray each nostril twice daily for allergies and runny nose FLONASE 50 MCG/ACT NASAL SUSPENSION 2845174 FLUTICASONE PROPIONATE Inactive LORATADINE 10 MG ORAL TABLET 1 tablet by mouth daily for congestion and allergies. LORATADINE 10 MG ORAL TABLET 000362 LORATADINE Inactive NITROSTAT 0.4 MG SUBLINGUAL TABLET SUBLINGUAL PRN NITROSTAT 0.4 MG SUBLINGUAL TABLET SUBLINGUAL 227231 NITROGLYCERIN Inactive GUAIFENESIN ER 600 MG ORAL TABLET EXTENDED RELEASE 12 HOUR 1 tab po q am 2016 GUAIFENESIN ER 600 MG ORAL TABLET EXTENDED RELEASE 12 HOUR GUAIFENESIN Inactive CYCLOBENZAPRINE HCL 10 MG ORAL TABLET 1 po TID PRN muscle spasm/pain for 10 days CYCLOBENZAPRINE HCL 10 MG ORAL TABLET 956371 CYCLOBENZAPRINE HCL Inactive TOPIRAMATE 50 MG ORAL TABLET take 1 tab po BID for migraines. TOPIRAMATE 50 MG ORAL TABLET 820986 TOPIRAMATE Inactive PREDNISONE 20 MG ORAL TABLET two tabs by mouth today, then one tab by mouth days two and three PREDNISONE 20 MG ORAL TABLET 479943 PREDNISONE Inactive TOPROL XL 200 MG ORAL TABLET EXTENDED RELEASE 24 HOUR Take one by mouth daily TOPROL XL 200 MG ORAL TABLET EXTENDED RELEASE 24 HOUR METOPROLOL SUCCINATE Inactive CYCLOBENZAPRINE HCL 10 MG ORAL TABLET 1 tablet by mouth three times daily as needed for muscle spasm/pain CYCLOBENZAPRINE HCL 10 MG ORAL TABLET 759406 CYCLOBENZAPRINE HCL Inactive TOPIRAMATE 50 MG ORAL TABLET 1 po BID for migraines TOPIRAMATE 50 MG ORAL TABLET 275719 TOPIRAMATE Inactive TEMAZEPAM 15 MG ORAL CAPSULE 1 TAB PO Q HS TEMAZEPAM 15 MG ORAL CAPSULE 544270 TEMAZEPAM Inactive IMDUR 60 MG ORAL TABLET EXTENDED RELEASE 24 HOUR take 1 tab po qday for blood pressure IMDUR 60 MG ORAL TABLET EXTENDED RELEASE 24 HOUR ISOSORBIDE MONONITRATE Inactive [id number] 0.3 MG/24HR TRANSDERMAL PATCH WEEKLY apply 2 patches q week for HTN [id number] 0.3 MG/24HR TRANSDERMAL PATCH WEEKLY 073085 CLONIDINE HCL Inactive ZITHROMAX 250 MG ORAL TABLET 2 po today, then 1 po q days 2-5 ZITHROMAX 250 MG ORAL TABLET 502331 AZITHROMYCIN Inactive TERBINAFINE HCL 250 MG ORAL TABLET 1 tab po qday for foot infection TERBINAFINE HCL 250 MG ORAL TABLET 138754 TERBINAFINE HCL Inactive KEFLEX 500 MG ORAL CAPSULE 1 po TID x 10 days KEFLEX 500 MG ORAL CAPSULE 207051 CEPHALEXIN Inactive BACTRIM DS 800-160 MG ORAL TABLET 1 tab by mouth twice daily 2015 BACTRIM DS 800-160 MG ORAL TABLET 056432 TRIMETHOPRIM- SULFAMETHOXAZOLE Inactive PREDNISONE 20 MG ORAL TABLET take 3 tabs daily for 3 days, 2 tabs daily for 3 days, 1 tab daily for 3 days, 1/2 tab daily for 4 days PREDNISONE 20 MG ORAL TABLET 356113 PREDNISONE Inactive AZITHROMYCIN 250 MG ORAL TABLET 2 po qd x 1 day, then 1 po qd x 4 days 09/20 AZITHROMYCIN 250 MG ORAL TABLET 744957 AZITHROMYCIN Inactive SINGULAIR 10 MG ORAL TABLET 1 po qday for allergies. SINGULAIR 10 MG ORAL TABLET 042093 MONTELUKAST SODIUM Inactive Advance Directives Directive Description [...] AUTO - Chemistry sodium, serum 142 mmol/L 873-900 3109/07/17 carbon dioxide, venous blood 28.2 mmol/L 21.0-32.0 [...] % 11.0-15.0 platelet count 185 THOUSAND/UL 10*3/mm3 170-753 4898/04/14 mean platelet volume 10.9 fL 7.5-12.5 Lab Report: Comp. Metabolic Panel - Chemistry sodium, serum 141 mmol/L 392-382 2147/02/13 carbon dioxide, venous blood 23.9 mmol/L 21.0-32.0 [...] 6.9 % 4.3-6.0 sodium, serum 139 mmol/L 635-406 0279/01/04 potassium, serum 3.9 mmol/L 3.5-5.2 chloride, serum 103 mmol/L 98-107 carbon dioxide, venous blood 26.9 mmol/L 21.0-32.0 blood glucose 106 mg/dL 65-110 calcium, serum 9.0 mg/dL 8.5-10.1 urea nitrogen, blood 20 mg/dL 7-18 creatinine, serum 1.46 mg/dL 0.60-1.30 Lab Report: LIPID PANEL, TSH/899, T4, FREE/866 - Chemistry cholesterol, serum 220 mg/dL 477-524 3490/04/14 HDL cholesterol, serum 30 mg/dL > OR=40 [...] 1.80 ng/mL 0.00-4.00 Lab Report: VITAMIN D, 25-HYDROXY/84235 - Chemistry vitamin D 25-hydroxy, serum 25 ng/mL 30-100 Office Visit: Confusion, dizziness after fall - Basic LDL target level 130 mg/dL Office Visit: Confusion, dizziness after fall - Chemistry HDL cholesterol, serum, target level 40 mg/dL triglyceride, target level 150 mg/dL cholesterol, target level 200 mg/dL Encounters Code Encounter Date Provider Facility CPT-73546 Level 3 Est. Patient 16:04:17 CDT Robbie Busby MD [facility] CPT-72069 Level 4 Est. Patient 09:50:01 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 COUNSELOR Robbie Busby MD [facility] CPT-63692 Level 4 Est. Patient 09:42:08 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 COUNSELOR Robbie Busby MD [facility] CPT-34965 Level 4 Est. Patient 13:07:39 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 COUNSELOR Robbie Busby MD [facility] CPT-13124 Level 4 Est. Patient 15:23:44 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 COUNSELOR Desmond Diaz DO [facility] CPT-46380 Level 3 Est. Patient 15:40:49 CDT Robbie Busby MD [facility] CPT-57511 Level 4 Est. Patient 15:18:19 CDT Robbie Busby MD [facility] CPT-56792 Level 3 Est. Patient 09:00:37 CDT Rober Rodolfoneha [facility] CPT-93738 Level 3 Est. Patient 16:07:10 CDT Robbie Busby MD [facility] CPT-11849 Level 4 Est. Patient 11:56:16 CDT Erin Miguelzane [facility] CPT-50727 Level 3 Est. Patient 17:48:02 CDT Robbie Busby MD [facility] CPT-53790 Level 4 Est. Patient 12:00:49 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 COUNSELOR Rober Rodríguez [facility] CPT-69076 Level 3 Est. Patient 09:16:37 CDT Robbie Busby MD [facility] CPT-25916 Level 3 Est. Patient 19:38:43 CDT Robbie Busby MD [facility] CPT-30901 Level 3 Est. Patient 11:53:38 CDT Robbie Busby MD [facility] CPT-31314 Level 4 Est. Patient 12:52:22 CDT Rober Rodríguez [facility] CPT-55073 Level 4 Est. Patient 22:55:17 CDT Robbie Busby MD [facility] CPT-05870 Level 3 Est. Patient 12:38:24 CDT Desmond Diaz DO [facility] CPT-30223 Level 4 Est. Patient 11:25:03 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 COUNSELOR Robbie Busby MD [facility] CPT-53005 Level 4 Est. Patient 14:50:10 CDT Robbie Busby MD [facility] CPT-55510 Level 4 Est. Patient 23:30:43 CDT Robbie Busby MD [facility] CPT-88906 Level 4 Est. Patient 10:30:43 CDT Robbie Busby MD [facility] CPT-49106 Level 3 Est. Patient 17:08:[address] [facility] CPT-25455 Level 4 Est. Patient 17:51:38 CDT Robbie Busby MD [facility] CPT-67110 Level 4 Est. Patient 14:00:21 CDT Robbie Busby MD [facility] CPT-11796 Level 4 Est. Patient 12:46:48 CDT Robbie Busby MD [facility] CPT-05153 Level 4 Est. Patient 13:34:33 CDT Robbie Busby MD [facility] CPT-85255 Level 4 Est. Patient 16:58:28 CDT Robbie Busby MD [facility] CPT-35724 Level 3 Est. Patient 19:36:[address] [facility] CPT-65615 Level 3 Est. Patient 12:58:15 CDT Robbie Busby MD [facility] Procedures Code Procedure Name Date Entry Date Standard Description CPT-J1100 Decadron 8mg (Dexamethasone) 16:04:17 CDT CPT-J1040 Depo Medrol 80 mg (Methyl Prednisolone Acetate) 16:04: 17 CDT CPT-J1071 Depo Testosterone 200mg 08:56:46 CDT CPT-75104 Abx/Therapy Injection 08:56:45 CDT CPT-J1071 Depo Testosterone 200mg 08:26:27 CDT CPT-64756 Abx/Therapy Injection 08:26:27 CDT CPT-J1071 Depo Testosterone 200mg 10:27:10 CDT CPT-07074 Abx/Therapy Injection 10:27:10 CDT CPT-J1071 Depo Testosterone 200mg 16:10:29 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 COUNSELOR CPT-52936 Abx/Therapy Injection 16:10:29 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 COUNSELOR CPT-J1071 Depo Testosterone 200mg 16:13:47 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 COUNSELOR CPT-27416 Abx/Therapy Injection 16:13:46 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 COUNSELOR CPT-J1071 Depo Testosterone 200mg 15:33:58 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 COUNSELOR CPT-85802 Abx/Therapy Injection 15:33:58 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 COUNSELOR CPT-J1071 Depo Testosterone 200mg 09:38:36 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 COUNSELOR CPT-73485 Abx/Therapy Injection 09:38:36 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 COUNSELOR CPT-J1071 Depo Testosterone 200mg 10:22:56 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 COUNSELOR CPT-42312 Abx/Therapy Injection 10:22:56 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 COUNSELOR CPT-J1071 Depo Testosterone 200mg 15:40:23 CDT CPT-27947 Abx/Therapy Injection 15:40:23 CDT CPT-J1071 Depo Testosterone 200mg 14:20:43 CDT CPT-51148 Abx/Therapy Injection 14:20:43 CDT CPT-J1071 Depo Testosterone 200mg 14:17:22 CDT CPT-64934 Abx/Therapy Injection 14:17:22 CDT CPT-J1071 Depo Testosterone 200mg 09:03:53 CDT CPT-61193 Abx/Therapy Injection 09:03:53 CDT CPT-G0439 [facility] Annual Wellness Exam 16:47:44 CDT CPT-J1071 Depo Testosterone 200mg 09:06:28 CDT CPT-00464 Abx/Therapy Injection 09:06:28 CDT CPT-J1071 Depo Testosterone 200mg 08:30:01 CDT CPT-28447 Abx/Therapy Injection 08:30:01 CDT CPT-J1071 Depo Testosterone 200mg 08:24:00 CDT CPT-12807 Abx/Therapy Injection 08:24:00 CDT CPT-56721 Venipuncture Draw Fee 14:39:06 CDT CPT-87486 Ribs unilateral 2V - XRAY USE ONLY 12:10:11 CDT CPT-75454 First Vx - Ix admin for Medicare patients 16:32:53 CDT CPT-70818 Boostrix Intramuscular Suspension 5-2.5-18.5 16:32:53 CDT CPT-37239 TB Skin Test 11:42:28 CDT CPT-70923 Tdap 7yrs or > 11:42:28 CDT CPT-J0696 Rocephin 1000 mg (Ceftriaxone) 17:43:43 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 COUNSELOR CPT-J1040 Depo Medrol 80 mg (Methyl Prednisolone Acetate) 17:43: 43 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 COUNSELOR CPT-J1100 Decadron 8mg (Dexamethasone) 17:43:42 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 COUNSELOR CPT-88103 Abx/Therapy Injection 17:43:42 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 COUNSELOR CPT-60752 Abx/Therapy Injection 17:43:42 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 CPT-J1040 Depo Medrol 80 mg (Methyl Prednisolone Acetate) 09:43: 34 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 COUNSELOR CPT-J1100 Decadron 8mg (Dexamethasone) 09:43:34 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 COUNSELOR CPT-J0696 Rocephin 1gm Inj Solr 09:43:34 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 COUNSELOR CPT-87689 Wound Culture - LAB USE ONLY 14:00:21 CDT CPT-I/D I/D Abscess 09:16:37 CDT CPT-11561 Venipuncture Draw Fee 15:20:23 CDT CPT-78419 Microalbumin - LAB USE ONLY 16:02:19 CDT CPT-31484 CBC - LAB USE ONLY 16:02:19 CDT CPT-66799 Venipuncture Draw Fee 16:02:19 CDT CPT-G0438 Initial Annual Wellness Exam 08:10:28 CDT CPT-15481 Venipuncture Draw Fee 13:07:17 CDT CPT-G0008 Administration of Influenza Virus Vaccine 16:09:59 CDT CPT-46662 Fluzone Quadrivalent Intramuscular Suspension 0.5 ML 16: 09:59 CDT CPT-31922 Spec Collection and Handling Fee 15:05:50 CDT
--- OUTSIDE RECORDS SUMMARY | 2018-04-18 13:51 | XMS REPORT | Clinical Summary ---
Author Author Admin, AKUA Organization [employer] Address Unknown Phone Unavailable Allergies, Adverse Reactions, [...] Status Provider Patient Instruction GUAIFENESIN 600 MG [id number] 1 tab po q am GUAIFENESIN 01041663401 Active Jillina Frazell [employer] Active FLUTICASONE PROPIONATE 50 MCG/ACT SUSP 2 sprays per nostril bid for 1 week, then 1 spray bid FLUTICASONE PROPIONATE 92120312584 Active Jillina Frazell [employer] Active HYDRALAZINE HCL 25 MG ORAL TABS Take 1 tab BID. HYDRALAZINE HCL 03276387751 Active Jillina Frazell [employer] Active VITAMIN D3 52654 UNIT ORAL TABS 2 po weekly CHOLECALCIFEROL 84071547952 Active JONATHAN Moncada Active OXYCODONE HCL ER 10 MG ORAL T12A 1 tab po 3 times qd. OXYCODONE HCL 52764040917 Active Robbie Busby MD Active NITROSTAT 0.4 MG SUBL PRN NITROGLYCERIN 95365310542 No Longer Active Robbie Busby MD Active LORATADINE 10 MG TABS 1 tablet by mouth daily for congestion and allergies. LORATADINE 21567452682 No Longer Active Robbie Busby MD Active FLONASE 50 MCG/ACT SUSP 1 spray each nostril twice daily for allergies and runny nose FLUTICASONE PROPIONATE 18099658975 No Longer Active Robbie Busby MD Active FIORICET 50-300-40 MG ORAL CAPS take 1 tab po qday prn migraines. [id number] 19379141240 No Longer Active Robbie Busby MD Active VITAMIN D3 88438 UNIT CAPS 2 CAPS PO WEEKLY CHOLECALCIFEROL 05182280721 No Longer Active Robbie Busby MD Active CYCLOBENZAPRINE HCL 10 MG TABS 1 tablet by mouth three times daily as needed for muscle spasm/pain for 10 days CYCLOBENZAPRINE HCL 19353276807 No Longer Active Robbie Busby MD Active PREDNISONE 20 MG TAB take 3 tabs daily for 3 days, 2 tabs daily for 3 days, 1 tab daily for 3 days, 1/2 tab daily for 4 days PREDNISONE 45973648214 No Longer Active Erin Garsia APRN Active CLONIDINE HCL 0.2 MG ORAL TABS 1 TAB BY MOUTH EVERY 8 HOURS 12/29 CLONIDINE HCL 79337074554 No Longer Active Erin Garsia APRN Active MECLIZINE HCL 25 MG TAB one 4 times a day as needed for dizziness MECLIZINE HCL 19960778834 No Longer Active Erin Garsia APRN Active SPIRONOLACTONE 25 MG TAB 4 tablets by mouth daily SPIRONOLACTONE 76623526449 No Longer Active Erin Garsia APRN Active LEVAQUIN 500 MG TAB 1 tablet by mouth daily for 7 days LEVOFLOXACIN 85582823149 No Longer Active Erin Garsia APRN Active BACTRIM DS 800-160 MG TAB 1 tab by mouth twice daily TRIMETHOPRIM-SULFAMETHOXAZOLE 52538211036 No Longer Active Robbie Busby MD Active HYDRALAZINE HCL 50 MG ORAL TABS TWO BY MOUTH THREE TIMES DAILY HYDRALAZINE HCL 21734093055 No Longer Active Jillina Frazell [employer] Active HYDROCODONE-ACETAMINOPHEN 5-325 MG TABS 1 tab by mouth BID prn back pain 2013 HYDROCODONE-ACETAMINOPHEN 14131045785 No Longer Active Jillina Frazell [employer] Active HYDROCHLOROTHIAZIDE TABS Take one by mouth daily HYDROCHLOROTHIAZIDE TABS 88877528614 No Longer Active Jillina Frazell [employer] Active LAMISIL 125 MG ORAL PACK 1 TAB PO DAILY TERBINAFINE HCL 71716177436 No Longer Active Jillina Frazell [employer] Active TRILEPTAL 150 MG ORAL TABS 1 TAB PO Q HS OXCARBAZEPINE 84898717789 No Longer Active Jillina Frazell [employer] Active BETADINE 10 % EXT SOLN wash with solution to treat follicultis POVIDONE-IODINE 48378773036 No Longer Active Jillina Zulemal [employer] Active NYSTATIN 114063 UNIT/ML M/T SUSP 5mL po QID x 10 days NYSTATIN 43650744170 No Longer Active Erin Garsia APRN Active PREDNISONE 20 MG TAB 1 tablet twice daily for 2 days, then 1 tablet once daily for 2 days PREDNISONE 47322657157 No Longer Active Robbie Busby MD Active CEFDINIR 300 MG ORAL CAPS Take 1 cap po bid x 10 days CEFDINIR 62924483411 No Longer Active Robbie Busby MD Active AMLODIPINE BESYLATE 10 MG TABS 1 tablet by mouth daily AMLODIPINE BESYLATE 25917135654 Active Robbie Busby MD Active CARVEDILOL 25 MG TABS 1 & 1/2 TAB po BID CARVEDILOL 78377994918 Active Robbie Busby MD Active NEXIUM 40 MG CPDR 1 cap by mouth daily ESOMEPRAZOLE MAGNESIUM 20898844371 Active Robbie Busby MD Active PROTONIX 40 MG SOLR 1 po qday for acid reflux PANTOPRAZOLE SODIUM 70814137094 No Longer Active Gali Raida Active KEFLEX 500 MG CAP 1 po TID x 10 days CEPHALEXIN 58294887069 No Longer Active Robbie Busby MD Active TOPIRAMATE 50 MG ORAL TABS take 1 tab po BID for migraines. TOPIRAMATE 80094470806 Active Robbie Busby MD Active TEMAZEPAM 15 MG ORAL CAPS 1 TAB PO Q HS TEMAZEPAM 48159779733 Active Robbie Busby MD Active ALPRAZOLAM 2 MG ORAL TABS 1 TAB PO BID ALPRAZOLAM 57438500603 Active Robbie Busby MD Active FENOFIBRATE 145 MG TABS Take one by mouth daily FENOFIBRATE 76202495164 No Longer Active Robbie Busby MD Active SPIRONOLACTONE 50 MG TABS 1 tablet by mouth twice a day SPIRONOLACTONE 83343762444 No Longer Active Robbie Busby MD Active HYDRALAZINE HCL 25 MG TABS 1 tablet by mouth tid for hypertension HYDRALAZINE HCL 87353955735 No Longer Active Robbie Busby MD Active VIIBRYD 40 MG TABS take 1 tab po qday for depression. VILAZODONE HCL 51305471206 No Longer Active Robbie Busby MD Active TERBINAFINE HCL 250 MG TABS 1 tab po qday for foot infection 2014 TERBINAFINE HCL 02770864251 No Longer Active Robbie Busby MD Active GABAPENTIN 300 MG CAPS 1 po q hs for nerve pain GABAPENTIN 03262640935 Active Robbie Busby MD Active CHERATUSSIN AC 100-10 MG/5ML ORAL SOLN 7.5 mL PO q 4-6 hrs PRN cough GUAIFENESIN-CODEINE 70458681515 No Longer Active Robbie Busby MD Active AZITHROMYCIN 250 MG ORAL TABS 2 tablets PO today---then, 1 tablet PO daily x 4 more days (and 1 optional refill) AZITHROMYCIN 33695259696 No Longer Active Robbie Busby MD Active NORVASC 10 MG TAB 1 tablet by mouth daily AMLODIPINE BESYLATE 24042373593 No Longer Active Alex ALVAREZ Active IMDUR 60 MG TAB CR take 1 tab po qday for blood pressure ISOSORBIDE MONONITRATE Active Robbie Busby MD Active ISOSORBIDE DINITRATE 30 MG TABS Take one by mouth daily ISOSORBIDE DINITRATE 89060918327 No Longer Active Robbie Busby MD Active VIIBRYD 40 MG TABS 1 TA B PO DAILY VILAZODONE HCL 68629558219 Active Robbie Busby MD Active ZITHROMAX 250 MG TAB 2 po today, then 1 po q days 2-5 AZITHROMYCIN 70218587773 No Longer Active Robbie Busby MD Active VANVHGVL-GEA-4 0.3 MG/24HR PTWK apply 2 patches q week for HTN CLONIDINE HCL 22813146250 Active Robbie Busby MD Active DOXAZOSIN MESYLATE 4 MG TABS Take one by mouth daily DOXAZOSIN MESYLATE 52132910123 Active Robbie Busby MD Active TOPROL XL 200 MG [id number] Take one by mouth daily METOPROLOL SUCCINATE 27666737947 Active Robbie Busby MD Active VENLAFAXINE HCL ER 150 MG [id number] Take one by mouth daily VENLAFAXINE HCL 26252652889 Active Robbie Busby MD Active LIPITOR 40 MG TABS Take one by mouth daily ATORVASTATIN CALCIUM 93479395288 Active Robbie Busby MD Active ISOSORBIDE DINITRATE 30 MG TABS Take one by mouth daily ISOSORBIDE DINITRATE 30 MG TABS 248417 ISOSORBIDE DINITRATE Inactive NORVASC 10 MG TAB 1 tablet by mouth daily NORVASC 10 MG TAB 782460 AMLODIPINE BESYLATE Inactive AZITHROMYCIN 250 MG ORAL TABS 2 tablets PO today---then, 1 tablet PO daily x 4 more days (and 1 optional refill) AZITHROMYCIN 250 MG ORAL TABS 0753235 AZITHROMYCIN Inactive CHERATUSSIN AC 100-10 MG/5ML ORAL SOLN 7.5 mL PO q 4-6 hrs PRN cough CHERATUSSIN AC 100-10 MG/5ML ORAL SOLN 820380 GUAIFENESIN- CODEINE Inactive VIIBRYD 40 MG TABS take 1 tab po qday for depression. VIIBRYD 40 MG TABS VILAZODONE HCL Inactive HYDRALAZINE HCL 25 MG TABS 1 tablet by mouth tid for hypertension HYDRALAZINE HCL 25 MG TABS 156246 HYDRALAZINE HCL Inactive SPIRONOLACTONE 50 MG TABS 1 tablet by mouth twice a day SPIRONOLACTONE 50 MG TABS 880122 SPIRONOLACTONE Inactive FENOFIBRATE 145 MG TABS Take one by mouth daily FENOFIBRATE 145 MG TABS 721311 FENOFIBRATE Inactive PROTONIX 40 MG SOLR 1 po qday for acid reflux PROTONIX 40 MG SOLR 995981 PANTOPRAZOLE SODIUM Inactive CEFDINIR 300 MG ORAL CAPS Take 1 cap po bid x 10 days CEFDINIR 300 MG ORAL CAPS 161182 CEFDINIR Inactive PREDNISONE 20 MG TAB 1 tablet twice daily for 2 days, then 1 tablet once daily for 2 days PREDNISONE 20 MG TAB 370884 PREDNISONE Inactive NYSTATIN 029817 UNIT/ML M/T SUSP 5mL po QID x 10 days NYSTATIN 870359 UNIT/ML M/T SUSP 091431 NYSTATIN Inactive BETADINE 10 % EXT SOLN wash with solution to treat follicultis BETADINE 10 % EXT SOLN 3636486 POVIDONE-IODINE Inactive TRILEPTAL 150 MG ORAL TABS 1 TAB PO Q HS TRILEPTAL 150 MG ORAL TABS 976342 OXCARBAZEPINE Inactive LAMISIL 125 MG ORAL PACK 1 TAB PO DAILY LAMISIL 125 MG ORAL PACK TERBINAFINE HCL Inactive HYDROCHLOROTHIAZIDE TABS Take one by mouth daily HYDROCHLOROTHIAZIDE TABS HYDROCHLOROTHIAZIDE TABS Inactive HYDROCODONE-ACETAMINOPHEN 5-325 MG TABS 1 tab by mouth BID prn back pain 2013 HYDROCODONE-ACETAMINOPHEN 5-325 MG TABS 728258 HYDROCODONE -ACETAMINOPHEN Inactive HYDRALAZINE HCL 50 MG ORAL TABS TWO BY MOUTH THREE TIMES DAILY HYDRALAZINE HCL 50 MG ORAL TABS 573142 HYDRALAZINE HCL Inactive LEVAQUIN 500 MG TAB 1 tablet by mouth daily for 7 days LEVAQUIN 500 MG TAB 057027 LEVOFLOXACIN Inactive SPIRONOLACTONE 25 MG TAB 4 tablets by mouth daily SPIRONOLACTONE 25 MG TAB 514564 SPIRONOLACTONE Inactive MECLIZINE HCL 25 MG TAB one 4 times a day as needed for dizziness MECLIZINE HCL 25 MG TAB 388240 MECLIZINE HCL Inactive CLONIDINE HCL 0.2 MG ORAL TABS 1 TAB BY MOUTH EVERY 8 HOURS 12/29 CLONIDINE HCL 0.2 MG ORAL TABS 721417 CLONIDINE HCL Inactive CYCLOBENZAPRINE HCL 10 MG TABS 1 tablet by mouth three times daily as needed for muscle spasm/pain for 10 days CYCLOBENZAPRINE HCL 10 MG TABS 315073 CYCLOBENZAPRINE HCL Inactive VITAMIN D3 48263 UNIT CAPS 2 CAPS PO WEEKLY VITAMIN D3 27243 UNIT CAPS CHOLECALCIFEROL Inactive FIORICET 50-300-40 MG ORAL CAPS take 1 tab po qday prn migraines. FIORICET 50-300-40 MG ORAL CAPS 202440 [id number] Inactive FLONASE 50 MCG/ACT SUSP 1 spray each nostril twice daily for allergies and runny nose FLONASE 50 MCG/ACT SUSP 0468486 FLUTICASONE PROPIONATE Inactive LORATADINE 10 MG TABS 1 tablet by mouth daily for congestion and allergies. LORATADINE 10 MG TABS 506747 LORATADINE Inactive NITROSTAT 0.4 MG SUBL PRN NITROSTAT 0.4 MG SUBL 447754 NITROGLYCERIN Inactive ZITHROMAX 250 MG TAB 2 po today, then 1 po q days 2-5 ZITHROMAX 250 MG TAB 9932674 AZITHROMYCIN Inactive TERBINAFINE HCL 250 MG TABS 1 tab po qday for foot infection 2014 TERBINAFINE HCL 250 MG TABS 231665 TERBINAFINE HCL Inactive KEFLEX 500 MG CAP 1 po TID x 10 days KEFLEX 500 MG CAP 612873 CEPHALEXIN Inactive BACTRIM DS 800-160 MG TAB 1 tab by mouth twice daily BACTRIM DS 800-160 MG TAB 808167 TRIMETHOPRIM-SULFAMETHOXAZOLE Inactive PREDNISONE 20 MG TAB take 3 tabs daily for 3 days, 2 tabs daily for 3 days, 1 tab daily for 3 days, 1/2 tab daily for 4 days PREDNISONE 20 MG TAB 773947 PREDNISONE Inactive Advance Directives Directive Description Start [...] AUTO - Chemistry sodium, serum 142 mmol/L 862-069 7129/07/17 carbon dioxide, venous blood 28.2 mmol/L 21.0-32.0 [...] % 11.0-15.0 platelet count 185 THOUSAND/UL 10*3/mm3 529-211 4775/04/14 mean platelet volume 10.9 fL 7.5-12.5 Lab Report: LIPID PANEL, TSH/899, T4, FREE/866 - Chemistry cholesterol, serum 220 mg/dL 358-492 6720/04/14 HDL cholesterol, serum 30 mg/dL > OR=40 triglyceride, serum, fasting 466 mg/dL <150 LDL cholesterol, serum SEE NOTE mg/dL (calc) mg/dL <130 cholesterol/HDL ratio, serum 7.3 (calc) < OR=5.0 Lab Report: MICROALB/CREAT W/RATIO - Chemistry albumin/creatinine ratio, urine < 30 mg/g mg/g{creat} 0-29 Lab Report: MICROALB/CREAT W/RATIO - Lab microalbumin, urine 80 0-19 Lab Report: VITAMIN D, 25-HYDROXY/22933 - Chemistry vitamin D 25-hydroxy, serum 25 ng/mL 30-100 Office Visit: Confusion, dizziness after fall - Basic LDL target level 130 mg/dL Office Visit: Confusion, dizziness after fall - Chemistry HDL cholesterol, serum, target level 40 mg/dL triglyceride, target level 150 mg/dL cholesterol, target level 200 mg/dL Encounters Code Encounter Date Provider Facility CPT-59979 Level 3 Est. Patient 09:00:37 CDT Rober Rodríguez [facility] CPT-88031 Level 3 Est. Patient 16:07:10 CDT Robbie Busby MD [facility] CPT-60174 Level 4 Est. Patient 11:56:16 CDT Erin Garsia [facility] CPT-38350 Level 3 Est. Patient 17:48:02 CDT Robbie Busby MD [facility] CPT-44384 Level 4 Est. Patient 12:00:49 IC ENGINEER Rober Rodríguez [facility] CPT-79867 Level 3 Est. Patient 09:16:37 CDT Robbie Busby MD [facility] CPT-88274 Level 3 Est. Patient 19:38:43 CDT Robbie Busby MD [facility] CPT-96435 Level 3 Est. Patient 11:53:38 CDT Robbie Busby MD [facility] CPT-08989 Level 4 Est. Patient 12:52:22 CDT Rober Rodríguez [facility] CPT-14559 Level 4 Est. Patient 22:55:17 CDT Robbie Busby MD [facility] CPT-64946 Level 3 Est. Patient 12:38:24 CDT Desmond Diaz DO [facility] CPT-60821 Level 4 Est. Patient 11:25:03 IC ENGINEER Robbie Busby MD [facility] CPT-40870 Level 4 Est. Patient 14:50:10 CDT Robbie Busby MD [facility] CPT-23376 Level 4 Est. Patient 23:30:43 CDT Robbie Busby MD [facility] CPT-65195 Level 4 Est. Patient 10:30:43 CDT Robbie Busby MD [facility] CPT-95091 Level 3 Est. Patient 17:08:12 CDT Alex ALVAREZ [facility] CPT-25922 Level 4 Est. Patient 17:51:38 CDT Robbie Busby MD [facility] CPT-30679 Level 4 Est. Patient 14:00:21 CDT Robbie Busby MD [facility] CPT-91758 Level 4 Est. Patient 12:46:48 CDT Robbie Busby MD [facility] CPT-25863 Level 4 Est. Patient 13:34:33 CDT Robbie Busby MD [facility] CPT-27061 Level 4 Est. Patient 16:58:28 CDT Robbie Busby MD [facility] CPT-69292 Level 3 Est. Patient 19:36:53 CDT Alex Shaw [facility] CPT-66594 Level 3 Est. Patient 12:58:15 CDT Robbie Busby MD [facility] Procedures Code Procedure Name Date Entry Date Standard Description CPT-63875 Venipuncture Draw Fee 14:39:06 CDT CPT-28771 Ribs unilateral 2V - XRAY USE ONLY 12:10:11 CDT CPT-74996 First Vx - Ix admin for Medicare patients 16:32:53 CDT CPT-97744 Boostrix Intramuscular Suspension 5-2.5-18.5 16:32:53 CDT CPT-38237 TB Skin Test 11:42:28 CDT CPT-01661 Tdap 7yrs or > 11:42:28 CDT CPT-J0696 Rocephin 1000 mg (Ceftriaxone) 17:43:43 IC ENGINEER CPT-J1040 Depo Medrol 80 mg (Methyl Prednisolone Acetate) 17:43: 43 IC ENGINEER CPT-J1100 Decadron 8mg (Dexamethasone) 17:43:42 IC ENGINEER CPT-90189 Abx/Therapy Injection 17:43:42 IC ENGINEER CPT-65800 Abx/Therapy Injection 17:43:42 IC ENGINEER CPT-J1040 Depo Medrol 80 mg (Methyl Prednisolone Acetate) 09:43: 34 IC ENGINEER CPT-J1100 Decadron 8mg (Dexamethasone) 09:43:34 IC ENGINEER CPT-J0696 Rocephin 1gm Inj Solr 09:43:34 IC ENGINEER CPT-10087 Wound Culture - LAB USE ONLY 14:00:21 CDT CPT-I/D I/D Abscess 09:16:37 CDT CPT-94857 Venipuncture Draw Fee 15:20:23 CDT CPT-88825 Microalbumin - LAB USE ONLY 16:02:19 CDT CPT-13514 CBC - LAB USE ONLY 16:02:19 CDT CPT-70281 Venipuncture Draw Fee 16:02:19 CDT CPT-G0438 Initial Annual Wellness Exam 08:10:28 CDT CPT-81785 Venipuncture Draw Fee 13:07:17 CDT CPT-G0008 Administration of Influenza Virus Vaccine 16:09:59 CDT CPT-13133 Fluzone Quadrivalent Intramuscular Suspension 0.5 ML 16: 09:59 CDT CPT-08162 Spec Collection and Handling Fee 15:05:50 CDT
--- OUTSIDE RECORDS SUMMARY | 2018-04-18 13:53 | XMS REPORT | Clinical Summary ---
Author Author Admin, AKUA Organization [employer] Address Unknown Phone Unavailable Allergies, Adverse Reactions, [...] muscle spasm/pain for 10 days CYCLOBENZAPRINE HCL 64924022765 Active Erin Garsia APRN Active PREDNISONE 20 MG TAB take 3 tabs daily for 3 days, 2 tabs daily for 3 days, 1 tab daily for 3 days, 1/2 tab daily for 4 days PREDNISONE 73252349235 No Longer Active Erin Garsia APRN Active CLONIDINE HCL 0.2 MG ORAL TABS 1 TAB BY MOUTH EVERY 8 HOURS 12/29 CLONIDINE HCL 99936177531 No Longer Active Erin Garsia APRN Active MECLIZINE HCL 25 MG TAB one 4 times a day as needed for dizziness MECLIZINE HCL 60011690832 No Longer Active Erin Garsia APRN Active SPIRONOLACTONE 25 MG TAB 4 tablets by mouth daily SPIRONOLACTONE 23161041380 No Longer Active Erin Garsia APRN Active LEVAQUIN 500 MG TAB 1 tablet by mouth daily for 7 days LEVOFLOXACIN 35527492861 No Longer Active Erin Garsia APRN Active BACTRIM DS 800-160 MG TAB 1 tab by mouth twice daily TRIMETHOPRIM-SULFAMETHOXAZOLE 21547920814 No Longer Active Robbie Busby MD Active HYDRALAZINE HCL 50 MG ORAL TABS TWO BY MOUTH THREE TIMES DAILY HYDRALAZINE HCL 01432498213 No Longer Active Jillina Frazell EXPERIMENTAL WELDER Active HYDROCODONE-ACETAMINOPHEN 5-325 MG TABS 1 tab by mouth BID prn back pain 2013 HYDROCODONE-ACETAMINOPHEN 34559308068 No Longer Active Jillina Frazell EXPERIMENTAL WELDER Active HYDROCHLOROTHIAZIDE TABS Take one by mouth daily HYDROCHLOROTHIAZIDE TABS 56672937098 No Longer Active Jillina Frazell EXPERIMENTAL WELDER Active LAMISIL 125 MG ORAL PACK 1 TAB PO DAILY TERBINAFINE HCL 91795313885 No Longer Active Jillina Frazell EXPERIMENTAL WELDER Active TRILEPTAL 150 MG ORAL TABS 1 TAB PO Q HS OXCARBAZEPINE 66871058350 No Longer Active Jillina Frazell EXPERIMENTAL WELDER Active BETADINE 10 % EXT SOLN wash with solution to treat follicultis POVIDONE-IODINE 85449940192 No Longer Active Jillina Frazell EXPERIMENTAL WELDER Active NYSTATIN 276115 UNIT/ML M/T SUSP 5mL po QID x 10 days NYSTATIN 31365704417 No Longer Active Erin Garsia APRN Active PREDNISONE 20 MG TAB 1 tablet twice daily for 2 days, then 1 tablet once daily for 2 days PREDNISONE 35896669856 No Longer Active Robbie Busby MD Active CEFDINIR 300 MG ORAL CAPS Take 1 cap po bid x 10 days CEFDINIR 20083336923 No Longer Active Robbie Busby MD Active AMLODIPINE BESYLATE 10 MG TABS 1 tablet by mouth daily AMLODIPINE BESYLATE 59150030310 Active Robbie Busby MD Active CARVEDILOL 25 MG TABS 1 & 1/2 TAB po BID CARVEDILOL 85650802705 Active Robbie Busby MD Active VITAMIN D3 35199 UNIT CAPS 2 CAPS PO WEEKLY CHOLECALCIFEROL 39405829854 Active Erin Garsia APRN Active NEXIUM 40 MG CPDR 1 cap by mouth daily ESOMEPRAZOLE MAGNESIUM 30112224548 Active Robbie Busby MD Active PROTONIX 40 MG SOLR 1 po qday for acid reflux PANTOPRAZOLE SODIUM 63741775161 No Longer Active Gali Negro Active KEFLEX 500 MG CAP 1 po TID x 10 days CEPHALEXIN 23669030021 No Longer Active Robbie Busby MD Active FIORICET 50-300-40 MG ORAL CAPS take 1 tab po qday prn migraines. [id number] 16069088371 Active Robbie Busby MD Active TOPIRAMATE 50 MG ORAL TABS take 1 tab po BID for migraines. TOPIRAMATE 21153346367 Active Robbie Busby MD Active TEMAZEPAM 15 MG ORAL CAPS 1 TAB PO Q HS TEMAZEPAM 61112262270 Active Robbie Busby MD Active ALPRAZOLAM 2 MG ORAL TABS 1 TAB PO BID ALPRAZOLAM 40335856936 Active Robbie Busby MD Active FENOFIBRATE 145 MG TABS Take one by mouth daily FENOFIBRATE 71312944439 No Longer Active Robbie Busby MD Active SPIRONOLACTONE 50 MG TABS 1 tablet by mouth twice a day SPIRONOLACTONE 84626472256 No Longer Active Robbie Busby MD Active HYDRALAZINE HCL 25 MG TABS 1 tablet by mouth tid for hypertension HYDRALAZINE HCL 23127658680 No Longer Active Robbie Busby MD Active VIIBRYD 40 MG TABS take 1 tab po qday for depression. VILAZODONE HCL 36457211522 No Longer Active Robbie Busby MD Active TERBINAFINE HCL 250 MG TABS 1 tab po qday for foot infection 2014 TERBINAFINE HCL 25104249406 No Longer Active Robbie Busby MD Active GABAPENTIN 300 MG CAPS 1 po q hs for nerve pain GABAPENTIN 54871046550 Active Robbie Busby MD Active FLONASE 50 MCG/ACT SUSP 1 spray each nostril twice daily for allergies and runny nose FLUTICASONE PROPIONATE 62947972297 Active Robbie Busby MD Active CHERATUSSIN AC 100-10 MG/5ML ORAL SOLN 7.5 mL PO q 4-6 hrs PRN cough GUAIFENESIN-CODEINE 89253128690 No Longer Active Robbie Busby MD Active AZITHROMYCIN 250 MG ORAL TABS 2 tablets PO today---then, 1 tablet PO daily x 4 more days (and 1 optional refill) AZITHROMYCIN 36333471889 No Longer Active Robbie Busby MD Active NORVASC 10 MG TAB 1 tablet by mouth daily AMLODIPINE BESYLATE 65319925278 No Longer Active Alex ALVAREZ Active IMDUR 60 MG TAB CR take 1 tab po qday for blood pressure ISOSORBIDE MONONITRATE Active Robbie Busby MD Active ISOSORBIDE DINITRATE 30 MG TABS Take one by mouth daily ISOSORBIDE DINITRATE 53287049027 No Longer Active Robbie Busby MD Active VIIBRYD 40 MG TABS 1 TA B PO DAILY VILAZODONE HCL 04447796763 Active Robbie Busby MD Active LORATADINE 10 MG TABS 1 tablet by mouth daily for congestion and allergies. LORATADINE 53633437346 Active Robbie Busby MD Active ZITHROMAX 250 MG TAB 2 po today, then 1 po q days 2-5 AZITHROMYCIN 88275921873 No Longer Active Robbie Busby MD Active OTAIJAHI-MAH-2 0.3 MG/24HR PTWK apply 2 patches q week for HTN CLONIDINE HCL 81065648605 Active Robbie Busby MD Active NITROSTAT 0.4 MG SUBL PRN NITROGLYCERIN 04969163941 Active Robbie Busby MD Active DOXAZOSIN MESYLATE 4 MG TABS Take one by mouth daily DOXAZOSIN MESYLATE 82949124769 Active Erin Garsia EXPERIMENTAL WELDER Active TOPROL XL 200 MG [id number] Take one by mouth daily METOPROLOL SUCCINATE 69876482266 Active Robbie Busby MD Active VENLAFAXINE HCL ER 150 MG [id number]-ATD Take one by mouth daily VENLAFAXINE HCL 68610096255 Active Robbie Busby MD Active LIPITOR 40 MG TABS Take one by mouth daily ATORVASTATIN CALCIUM 04357269902 Active Robbie Busby MD Active ISOSORBIDE DINITRATE 30 MG TABS Take one by mouth daily ISOSORBIDE DINITRATE 30 MG TABS 703557 ISOSORBIDE DINITRATE Inactive NORVASC 10 MG TAB 1 tablet by mouth daily NORVASC 10 MG TAB 239636 AMLODIPINE BESYLATE Inactive AZITHROMYCIN 250 MG ORAL TABS 2 tablets PO today---then, 1 tablet PO daily x 4 more days (and 1 optional refill) AZITHROMYCIN 250 MG ORAL TABS 2367256 AZITHROMYCIN Inactive CHERATUSSIN AC 100-10 MG/5ML ORAL SOLN 7.5 mL PO q 4-6 hrs PRN cough CHERATUSSIN AC 100-10 MG/5ML ORAL SOLN 365327 GUAIFENESIN- CODEINE Inactive VIIBRYD 40 MG TABS take 1 tab po qday for depression. VIIBRYD 40 MG TABS VILAZODONE HCL Inactive HYDRALAZINE HCL 25 MG TABS 1 tablet by mouth tid for hypertension HYDRALAZINE HCL 25 MG TABS 311386 HYDRALAZINE HCL Inactive SPIRONOLACTONE 50 MG TABS 1 tablet by mouth twice a day SPIRONOLACTONE 50 MG TABS 473909 SPIRONOLACTONE Inactive FENOFIBRATE 145 MG TABS Take one by mouth daily FENOFIBRATE 145 MG TABS 815128 FENOFIBRATE Inactive PROTONIX 40 MG SOLR 1 po qday for acid reflux PROTONIX 40 MG SOLR 861096 PANTOPRAZOLE SODIUM Inactive CEFDINIR 300 MG ORAL CAPS Take 1 cap po bid x 10 days CEFDINIR 300 MG ORAL CAPS 306692 CEFDINIR Inactive PREDNISONE 20 MG TAB 1 tablet twice daily for 2 days, then 1 tablet once daily for 2 days PREDNISONE 20 MG TAB 668058 PREDNISONE Inactive NYSTATIN 216341 UNIT/ML M/T SUSP 5mL po QID x 10 days NYSTATIN 316999 UNIT/ML M/T SUSP 881544 NYSTATIN Inactive BETADINE 10 % EXT SOLN wash with solution to treat follicultis BETADINE 10 % EXT SOLN 0349439 POVIDONE-IODINE Inactive TRILEPTAL 150 MG ORAL TABS 1 TAB PO Q HS TRILEPTAL 150 MG ORAL TABS 603213 OXCARBAZEPINE Inactive LAMISIL 125 MG ORAL PACK 1 TAB PO DAILY LAMISIL 125 MG ORAL PACK TERBINAFINE HCL Inactive HYDROCHLOROTHIAZIDE TABS Take one by mouth daily HYDROCHLOROTHIAZIDE TABS HYDROCHLOROTHIAZIDE TABS Inactive HYDROCODONE-ACETAMINOPHEN 5-325 MG TABS 1 tab by mouth BID prn back pain 2013 HYDROCODONE-ACETAMINOPHEN 5-325 MG TABS 243174 HYDROCODONE -ACETAMINOPHEN Inactive HYDRALAZINE HCL 50 MG ORAL TABS TWO BY MOUTH THREE TIMES DAILY HYDRALAZINE HCL 50 MG ORAL TABS 511824 HYDRALAZINE HCL Inactive LEVAQUIN 500 MG TAB 1 tablet by mouth daily for 7 days LEVAQUIN 500 MG TAB 070794 LEVOFLOXACIN Inactive SPIRONOLACTONE 25 MG TAB 4 tablets by mouth daily SPIRONOLACTONE 25 MG TAB 507956 SPIRONOLACTONE Inactive MECLIZINE HCL 25 MG TAB one 4 times a day as needed for dizziness MECLIZINE HCL 25 MG TAB 555527 MECLIZINE HCL Inactive CLONIDINE HCL 0.2 MG ORAL TABS 1 TAB BY MOUTH EVERY 8 HOURS 12/29 CLONIDINE HCL 0.2 MG ORAL TABS 915217 CLONIDINE HCL Inactive ZITHROMAX 250 MG TAB 2 po today, then 1 po q days 2-5 ZITHROMAX 250 MG TAB 4722608 AZITHROMYCIN Inactive TERBINAFINE HCL 250 MG TABS 1 tab po qday for foot infection 2014 TERBINAFINE HCL 250 MG TABS 701299 TERBINAFINE HCL Inactive KEFLEX 500 MG CAP 1 po TID x 10 days KEFLEX 500 MG CAP 215574 CEPHALEXIN Inactive BACTRIM DS 800-160 MG TAB 1 tab by mouth twice daily BACTRIM DS 800-160 MG TAB 790566 TRIMETHOPRIM-SULFAMETHOXAZOLE Inactive PREDNISONE 20 MG TAB take 3 tabs daily for 3 days, 2 tabs daily for 3 days, 1 tab daily for 3 days, 1/2 tab daily for 4 days PREDNISONE 20 MG TAB 280524 PREDNISONE Inactive Advance Directives Directive Description Start [...] % 11.0-15.0 platelet count 185 THOUSAND/UL 10*3/mm3 265-987 2714/04/14 mean platelet volume 10.9 fL 7.5-12.5 Lab Report: HEPATITIS B SAB/Immune Status, RUBELLA IGG AB(Immune Status) - Serology rubella antibody, serum, IgG 2.06 Lab Report: LIPID PANEL, TSH/899, T4, FREE/866 - Chemistry cholesterol, serum 220 mg/dL 399-400 3253/04/14 HDL cholesterol, serum 30 mg/dL > OR=40 triglyceride, serum, fasting 466 mg/dL <150 LDL cholesterol, serum SEE NOTE mg/dL (calc) mg/dL <130 cholesterol/HDL ratio, serum 7.3 (calc) < OR=5.0 Lab Report: MICROALB/CREAT W/RATIO - Chemistry albumin/creatinine ratio, urine < 30 mg/g mg/g{creat} 0-29 Lab Report: MICROALB/CREAT W/RATIO - Lab microalbumin, urine 80 0-19 Lab Report: VITAMIN D, 25-HYDROXY/62325 - Chemistry vitamin D 25-hydroxy, serum 23 ng/mL 30-100 Office Visit: Confusion, dizziness after fall - Basic LDL target level 130 mg/dL Office Visit: Confusion, dizziness after fall - Chemistry HDL cholesterol, serum, target level 40 mg/dL triglyceride, target level 150 mg/dL cholesterol, target level 200 mg/dL Encounters Code Encounter Date Provider Facility CPT-09605 Level 4 Est. Patient 11:56:16 CDT Erin Garsia [facility] CPT-24474 Level 3 Est. Patient 17:48:02 CDT Robbie Busby MD [facility] CPT-09053 Level 4 Est. Patient 12:00:49 YACHT MASTER Rober Rodríguez [facility] CPT-39773 Level 3 Est. Patient 09:16:37 CDT Robbie Busby MD [facility] CPT-90206 Level 3 Est. Patient 19:38:43 CDT Robbie Busby MD [facility] CPT-29403 Level 3 Est. Patient 11:53:38 CDT Robbie Busby MD [facility] CPT-70246 Level 4 Est. Patient 12:52:22 CDT Rober Rodríguez [facility] CPT-89035 Level 4 Est. Patient 22:55:17 CDT Robbie Busby MD [facility] CPT-90474 Level 3 Est. Patient 12:38:24 CDT Desmond Diaz DO [facility] CPT-95217 Level 4 Est. Patient 11:25:03 YACHT MASTER Robbie Busby MD [facility] CPT-85688 Level 4 Est. Patient 14:50:10 CDT Robbie Busby MD [facility] CPT-56010 Level 4 Est. Patient 23:30:43 CDT Robbie Busby MD [facility] CPT-82536 Level 4 Est. Patient 10:30:43 CDT Robbie Busby MD [facility] CPT-76058 Level 3 Est. Patient 17:08:12 CDT Alex Shaw [facility] CPT-06711 Level 4 Est. Patient 17:51:38 CDT Robbie Busby MD [facility] CPT-54358 Level 4 Est. Patient 14:00:21 CDT Robbie Busby MD [facility] CPT-02807 Level 4 Est. Patient 12:46:48 CDT Robbie Busby MD [facility] CPT-98103 Level 4 Est. Patient 13:34:33 CDT Robbie Busby MD [facility] CPT-06223 Level 4 Est. Patient 16:58:28 CDT Robbie Busby MD [facility] CPT-21272 Level 3 Est. Patient 19:36:53 CDT Alex [facility] CPT-87697 Level 3 Est. Patient 12:58:15 CDT Robbie Busby MD [facility] Procedures Code Procedure Name Date Entry Date Standard Description CPT-J0696 Rocephin 1000 mg (Ceftriaxone) 17:43:43 YACHT MASTER CPT-J1040 Depo Medrol 80 mg (Methyl Prednisolone Acetate) 17:43: 43 YACHT MASTER CPT-J1100 Decadron 8mg (Dexamethasone) 17:43:42 YACHT MASTER CPT-29012 Abx/Therapy Injection 17:43:42 YACHT MASTER CPT-73277 Abx/Therapy Injection 17:43:42 YACHT MASTER CPT-J1040 Depo Medrol 80 mg (Methyl Prednisolone Acetate) 09:43: 34 YACHT MASTER CPT-J1100 Decadron 8mg (Dexamethasone) 09:43:34 YACHT MASTER CPT-J0696 Rocephin 1gm Inj Solr 09:43:34 YACHT MASTER CPT-80126 Wound Culture - LAB USE ONLY 14:00:21 CDT CPT-I/D I/D Abscess 09:16:37 CDT CPT-69130 Venipuncture Draw Fee 15:20:23 CDT CPT-76520 Microalbumin - LAB USE ONLY 16:02:19 CDT CPT-80173 CBC - LAB USE ONLY 16:02:19 CDT CPT-76232 Venipuncture Draw Fee 16:02:19 CDT CPT-G0438 Initial Annual Wellness Exam 08:10:28 CDT CPT-89207 Venipuncture Draw Fee 13:07:17 CDT CPT-G0008 Administration of Influenza Virus Vaccine 16:09:59 CDT CPT-78865 Fluzone Quadrivalent Intramuscular Suspension 0.5 ML 16: 09:59 CDT CPT-84920 Spec Collection and Handling Fee 15:05:50 CDT
--- OUTSIDE RECORDS SUMMARY | 2018-04-18 13:56 | XMS REPORT | Clinical Summary ---
Author Author Admin, AKUA Organization [facility] Address Unknown Phone Unavailable Allergies, Adverse Reactions, [...] for allergies and runny nose FLUTICASONE PROPIONATE 89644143252 Active Robbie Busby MD Active CHERATUSSIN AC 100-10 MG/5ML ORAL SOLN 7.5 mL PO q 4-6 hrs PRN cough GUAIFENESIN-CODEINE 06610689748 No Longer Active Robbie Busby MD Active AZITHROMYCIN 250 MG ORAL TABS 2 tablets PO today---then, 1 tablet PO daily x 4 more days (and 1 optional refill) AZITHROMYCIN 02208101858 No Longer Active Robbie Busby MD Active CLONIDINE HCL 0.2 MG ORAL TABS 1 TAB BY MOUTH EVERY 8 HOURS CLONIDINE HCL 82738952074 Active Robbie Busby MD Active HYDROCHLOROTHIAZIDE TABS Take one by mouth daily HYDROCHLOROTHIAZIDE TABS 89682804212 Active Alex ALVAREZ Active NORVASC 10 MG TAB 1 tablet by mouth daily AMLODIPINE BESYLATE 08796353414 No Longer Active Alex ALVAREZ Active PROTONIX 40 MG SOLR 1 po qday for acid reflux PANTOPRAZOLE SODIUM 72436496453 Active Robbie Busby MD Active IMDUR 60 MG TAB CR take 1 tab po qday for blood pressure ISOSORBIDE MONONITRATE Active Robbie Busby MD Active ISOSORBIDE DINITRATE 30 MG TABS Take one by mouth daily ISOSORBIDE DINITRATE 98057067928 No Longer Active Robbie Busby MD Active VIIBRYD 40 MG TABS take 1 tab po qday for depression. VILAZODONE HCL 07390823657 Active Robbie Busby MD Active VIIBRYD 40 MG TABS 1 TA B PO DAILY VILAZODONE HCL 62161271402 Active Robbie Busby MD Active LORATADINE 10 MG TABS 1 tablet by mouth daily for congestion and allergies. LORATADINE 87655376510 Active Robbie Busby MD Active ZITHROMAX 250 MG TAB 2 po today, then 1 po q days 2-5 AZITHROMYCIN 08874254420 No Longer Active Robbie Busby MD Active HYDROCODONE-ACETAMINOPHEN 5-325 MG TABS 1 tab by mouth BID prn back pain 2013 HYDROCODONE-ACETAMINOPHEN 95229711744 Active Robbie Busby MD Active HYDRALAZINE HCL 50 MG TABS take 1 tab po QID for high blood pressure HYDRALAZINE HCL 23254237932 Active Robbie Busby MD Active IORBGZGM-HEI-1 0.3 MG/24HR PTWK apply 2 patches q week for HTN CLONIDINE HCL 47066759978 Active Robbie Busby MD Active FENOFIBRATE 145 MG TABS Take one by mouth daily FENOFIBRATE 36035140827 Active Robbie Busby MD Active NITROSTAT 0.4 MG SUBL PRN NITROGLYCERIN 11358168814 Active Robbie Busby MD Active DOXAZOSIN MESYLATE 4 MG TABS Take one by mouth daily DOXAZOSIN MESYLATE 64091270135 Active Robbie Busby MD Active HYDRALAZINE HCL 25 MG TABS 1 tablet by mouth tid for hypertension HYDRALAZINE HCL 46815974344 Active Robbie Busby MD Active TOPROL XL 200 MG [id number] Take one by mouth daily METOPROLOL SUCCINATE 41489509804 Active Robbie Busby MD Active SPIRONOLACTONE 50 MG TABS 1 tablet by mouth twice a day SPIRONOLACTONE 37960476365 Active Robbie Busby MD Active VENLAFAXINE HCL ER 150 MG [id number] Take one by mouth daily VENLAFAXINE HCL 18804786344 Active Robbie Busby MD Active LIPITOR 40 MG TABS Take one by mouth daily ATORVASTATIN CALCIUM 00463734871 Active Robbie Busby MD Active ISOSORBIDE DINITRATE 30 MG TABS Take one by mouth daily ISOSORBIDE DINITRATE 30 MG TABS 501021 ISOSORBIDE DINITRATE Inactive NORVASC 10 MG TAB 1 tablet by mouth daily NORVASC 10 MG TAB 394129 AMLODIPINE BESYLATE Inactive AZITHROMYCIN 250 MG ORAL TABS 2 tablets PO today---then, 1 tablet PO daily x 4 more days (and 1 optional refill) AZITHROMYCIN 250 MG ORAL TABS 4254919 AZITHROMYCIN Inactive CHERATUSSIN AC 100-10 MG/5ML ORAL SOLN 7.5 mL PO q 4-6 hrs PRN cough CHERATUSSIN AC 100-10 MG/5ML ORAL SOLN 793630 GUAIFENESIN- CODEINE Inactive ZITHROMAX 250 MG TAB 2 po today, then 1 po q days 2-5 ZITHROMAX 250 MG TAB 2368519 AZITHROMYCIN Inactive Vital Signs Date Name Value [...] 0.80 mg/dL 0.00-1.00 sodium, serum 141 mmol/L 665-486 5117/12/05 potassium, serum 4.0 mmol/L 3.5-5.2 chloride, serum [...] mg/dL Encounters Code Encounter Date Provider Facility CPT-74205 Level 4 Est. Patient 10:30:43 CDT Robbie Busby MD [facility] CPT-86386 Level 3 Est. Patient 17:08:12 CDT Alex ALVAREZ [facility] CPT-03420 Level 4 Est. Patient 17:51:38 CDT Robbie Busby MD [facility] CPT-81889 Level 4 Est. Patient 14:00:21 CDT Robbie Busby MD [facility] CPT-96125 Level 4 Est. Patient 12:46:48 CDT Robbie Busby MD [facility] CPT-44965 Level 4 Est. Patient 13:34:33 CDT Robbie Busby MD [facility] CPT-26139 Level 4 Est. Patient 16:58:28 CDT Robbie Busby MD [facility] CPT-91419 Level 3 Est. Patient 19:36:53 CDT Alex ALVAREZ [facility] CPT-53393 Level 3 Est. Patient 12:58:15 CDT Robbie Busby MD [facility] Procedures Code Procedure Name Date Entry Date Standard Description CPT-G0008 Administration of Influenza Virus Vaccine 16:09:59 CDT CPT-64311 Fluzone Quadrivalent Intramuscular Suspension 0.5 ML 16: 09:59 CDT CPT-86963 Spec Collection and Handling Fee 15:05:50 CDT
--- OUTSIDE RECORDS SUMMARY | 2018-04-18 13:58 | XMS REPORT | Clinical Summary ---
Author Author Admin, AKUA Organization [facility] Address Unknown Phone Unavailable Allergies, Adverse [...] BY MOUTH THREE TIMES DAILY HYDRALAZINE HCL [id number] Active Gali Raida Active MECLIZINE HCL 25 MG TAB one 4 times a day as needed for dizziness MECLIZINE HCL 47857859694 Active Robbie Busby MD Active TRILEPTAL 150 MG ORAL TABS 1 TAB PO Q HS OXCARBAZEPINE 55358017020 Active Robbie Busby MD Active TEMAZEPAM 15 MG ORAL CAPS 1 TAB PO Q HS TEMAZEPAM 98123457059 Active Robbie Busby MD Active ALPRAZOLAM 2 MG ORAL TABS 1 TAB PO BID ALPRAZOLAM 81152084179 Active Robbie Busby MD Active FENOFIBRATE 145 MG TABS Take one by mouth daily FENOFIBRATE 75810150655 No Longer Active Robbie Busby MD Active LAMISIL 125 MG ORAL PACK 1 TAB PO DAILY TERBINAFINE HCL 76947900449 Active Robbie Busby MD Active SPIRONOLACTONE 50 MG TABS 1 tablet by mouth twice a day SPIRONOLACTONE 47581396193 No Longer Active Robbie Busby MD Active HYDRALAZINE HCL 25 MG TABS 1 tablet by mouth tid for hypertension HYDRALAZINE HCL 00981469685 No Longer Active Robbie Busby MD Active VIIBRYD 40 MG TABS take 1 tab po qday for depression. VILAZODONE HCL 60834941768 No Longer Active Robbie Busby MD Active TERBINAFINE HCL 250 MG TABS 1 tab po qday for foot infection 2014 TERBINAFINE HCL 46597990530 No Longer Active Robbie Busby MD Active GABAPENTIN 300 MG CAPS 1 po q hs for nerve pain GABAPENTIN 08924226732 Active Robbie Busby MD Active FLONASE 50 MCG/ACT SUSP 1 spray each nostril twice daily for allergies and runny nose FLUTICASONE PROPIONATE 11797766531 Active Robbie Busby MD Active CHERATUSSIN AC 100-10 MG/5ML ORAL SOLN 7.5 mL PO q 4-6 hrs PRN cough GUAIFENESIN-CODEINE 00434421792 No Longer Active Robbie Busby MD Active AZITHROMYCIN 250 MG ORAL TABS 2 tablets PO today---then, 1 tablet PO daily x 4 more days (and 1 optional refill) AZITHROMYCIN 50970207096 No Longer Active Robbie Busby MD Active CLONIDINE HCL 0.2 MG ORAL TABS 1 TAB BY MOUTH EVERY 8 HOURS CLONIDINE HCL 57015096048 Active Robbie Busby MD Active HYDROCHLOROTHIAZIDE TABS Take one by mouth daily HYDROCHLOROTHIAZIDE TABS 38455021966 Active Alex ALVAREZ Active NORVASC 10 MG TAB 1 tablet by mouth daily AMLODIPINE BESYLATE 43774062651 No Longer Active Alex ALVAREZ Active PROTONIX 40 MG SOLR 1 po qday for acid reflux PANTOPRAZOLE SODIUM 90560460116 Active Robbie Busby MD Active IMDUR 60 MG TAB CR take 1 tab po qday for blood pressure ISOSORBIDE MONONITRATE Active Robbie Busby MD Active ISOSORBIDE DINITRATE 30 MG TABS Take one by mouth daily ISOSORBIDE DINITRATE 26284844643 No Longer Active Robbie Busby MD Active VIIBRYD 40 MG TABS 1 TA B PO DAILY VILAZODONE HCL 93724427467 Active Robbie Busby MD Active LORATADINE 10 MG TABS 1 tablet by mouth daily for congestion and allergies. LORATADINE 63519233288 Active Robbie Busby MD Active ZITHROMAX 250 MG TAB 2 po today, then 1 po q days 2-5 AZITHROMYCIN 69505288462 No Longer Active Robbie Busby MD Active HYDROCODONE-ACETAMINOPHEN 5-325 MG TABS 1 tab by mouth BID prn back pain 2013 HYDROCODONE-ACETAMINOPHEN 46601084369 Active Robbie Busby MD Active [id number] 0.3 MG/24HR PTWK apply 2 patches q week for HTN CLONIDINE HCL 73606051319 Active Robbie Busby MD Active NITROSTAT 0.4 MG SUBL PRN NITROGLYCERIN 53051936261 Active Robbie Busby MD Active DOXAZOSIN MESYLATE 4 MG TABS Take one by mouth daily DOXAZOSIN MESYLATE 98707603732 Active Robbie Busby MD Active TOPROL XL 200 MG [id number] Take one by mouth daily METOPROLOL SUCCINATE 52460324939 Active Robbie Busby MD Active VENLAFAXINE HCL ER 150 MG [id number] Take one by mouth daily VENLAFAXINE HCL 55196184921 Active Robbie Busby MD Active LIPITOR 40 MG TABS Take one by mouth daily ATORVASTATIN CALCIUM 65435533857 Active Robbie Busby MD Active ISOSORBIDE DINITRATE 30 MG TABS Take one by mouth daily ISOSORBIDE DINITRATE 30 MG TABS 598717 ISOSORBIDE DINITRATE Inactive NORVASC 10 MG TAB 1 tablet by mouth daily NORVASC 10 MG TAB 672376 AMLODIPINE BESYLATE Inactive AZITHROMYCIN 250 MG ORAL TABS 2 tablets PO today---then, 1 tablet PO daily x 4 more days (and 1 optional refill) AZITHROMYCIN 250 MG ORAL TABS 3966101 AZITHROMYCIN Inactive CHERATUSSIN AC 100-10 MG/5ML ORAL SOLN 7.5 mL PO q 4-6 hrs PRN cough CHERATUSSIN AC 100-10 MG/5ML ORAL SOLN 845080 GUAIFENESIN- CODEINE Inactive VIIBRYD 40 MG TABS take 1 tab po qday for depression. VIIBRYD 40 MG TABS VILAZODONE HCL Inactive HYDRALAZINE HCL 25 MG TABS 1 tablet by mouth tid for hypertension HYDRALAZINE HCL 25 MG TABS 671019 HYDRALAZINE HCL Inactive SPIRONOLACTONE 50 MG TABS 1 tablet by mouth twice a day SPIRONOLACTONE 50 MG TABS 192244 SPIRONOLACTONE Inactive FENOFIBRATE 145 MG TABS Take one by mouth daily FENOFIBRATE 145 MG TABS 108889 FENOFIBRATE Inactive ZITHROMAX 250 MG TAB 2 po today, then 1 po q days 2-5 ZITHROMAX 250 MG TAB 7439141 AZITHROMYCIN Inactive TERBINAFINE HCL 250 MG TABS 1 tab po qday for foot infection 2014 TERBINAFINE HCL 250 MG TABS 638293 TERBINAFINE HCL Inactive Vital Signs Date Name [...] Panel - Chemistry sodium, serum 141 mmol/L 105-871 3863/12/05 potassium, serum 4.0 mmol/L 3.5-5.2 chloride, serum [...] 0.60-1.30 Encounters Code Encounter Date Provider Facility CPT-67421 Level 4 Est. Patient 14:50:10 CDT Robbie Busby MD [facility] CPT-34228 Level 4 Est. Patient 23:30:43 CDT Robbie Busby MD [facility] CPT-50818 Level 4 Est. Patient 10:30:43 CDT Robbie Busby MD [facility] CPT-99765 Level 3 Est. Patient 17:08:12 CDT Alex ALVAREZ [facility] CPT-35261 Level 4 Est. Patient 17:51:38 CDT Robbei Busby MD [facility] CPT-65652 Level 4 Est. Patient 14:00:21 CDT Robbie Busby MD [facility] CPT-22417 Level 4 Est. Patient 12:46:48 CDT Robbie Busby MD [facility] CPT-76689 Level 4 Est. Patient 13:34:33 CDT Robbie Busby MD [facility] CPT-60538 Level 4 Est. Patient 16:58:28 CDT Robbie Busby MD [facility] CPT-38572 Level 3 Est. Patient 19:36:53 CDT Alex Shaw [facility] CPT-42514 Level 3 Est. Patient 12:58:15 CDT Robbie Busby MD [facility] Procedures Code Procedure Name Date Entry Date Standard Description CPT-G0008 Administration of Influenza Virus Vaccine 16:09:59 CDT CPT-34355 Fluzone Quadrivalent Intramuscular Suspension 0.5 ML 16: 09:59 CDT CPT-30341 Spec Collection and Handling Fee 15:05:50 CDT
--- OUTSIDE RECORDS SUMMARY | 2018-04-18 13:59 | XMS REPORT | Clinical Summary ---
Author Author Admin, AKUA Organization [facility] Address Unknown Phone Unavailable Allergies, Adverse Reactions, Alerts Allergy Name Reaction Description Start Date Severity Status Provider No Known Allergies Vanessa August Conditions or Problems Problem Name Problem Code Onset Date Status Entry Date Provider Comment Standard Description Annotate HEALTH EXAMINATION OF DEFINED SUBPOPULATION V70.5 Active Temtio[facility] examination of defined subpopulations Hypertension [...] 2 weeks for low testosterone TESTOSTERONE CYPIONATE 12781277515 Active Zulema Blank LPN Active CYCLOBENZAPRINE HCL 10 MG ORAL TABS 1 po TID PRN muscle spasm/pain for 10 days CYCLOBENZAPRINE HCL 99310366867 Active JONATHAN Moncada Active GUAIFENESIN 600 MG [id number] 1 tab po q am GUAIFENESIN 95870483030 Active Rober Rodríguez [employer] Active FLUTICASONE PROPIONATE 50 MCG/ACT SUSP 2 sprays per nostril bid for 1 week, then 1 spray bid FLUTICASONE PROPIONATE 05413747597 Active Jillina Frazelariana GONZALEZN Active HYDRALAZINE HCL 25 MG ORAL TABS Take 1 tab BID. HYDRALAZINE HCL 94585917376 Active Jillina Anne GONZALEZN Active VITAMIN D3 38089 UNIT ORAL TABS 2 po weekly CHOLECALCIFEROL 28125133094 Active Robbie Busby MD Active OXYCODONE HCL ER 10 MG ORAL T12A 1 tab po 3 times qd. OXYCODONE HCL 68945852620 Active Robbie Busby MD Active NITROSTAT 0.4 MG SUBL PRN NITROGLYCERIN 46534090891 No Longer Active Robbie Busby MD Active LORATADINE 10 MG TABS 1 tablet by mouth daily for congestion and allergies. LORATADINE 64222241155 No Longer Active Robbie Busby MD Active FLONASE 50 MCG/ACT SUSP 1 spray each nostril twice daily for allergies and runny nose FLUTICASONE PROPIONATE 24806399038 No Longer Active Robbie Busby MD Active FIORICET 50-300-40 MG ORAL CAPS take 1 tab po qday prn migraines. [id number] 06825270010 No Longer Active Robbie Busby MD Active VITAMIN D3 49310 UNIT CAPS 2 CAPS PO WEEKLY CHOLECALCIFEROL 55264781574 No Longer Active Robbie Busby MD Active CYCLOBENZAPRINE HCL 10 MG TABS 1 tablet by mouth three times daily as needed for muscle spasm/pain for 10 days CYCLOBENZAPRINE HCL 25763529308 No Longer Active Robbie Busby MD Active PREDNISONE 20 MG TAB take 3 tabs daily for 3 days, 2 tabs daily for 3 days, 1 tab daily for 3 days, 1/2 tab daily for 4 days PREDNISONE 83359454671 No Longer Active Erin Garsia APRN Active CLONIDINE HCL 0.2 MG ORAL TABS 1 TAB BY MOUTH EVERY 8 HOURS 12/29 CLONIDINE HCL 75967688442 No Longer Active Erin Garsia APRN Active MECLIZINE HCL 25 MG TAB one 4 times a day as needed for dizziness MECLIZINE HCL 41552621983 No Longer Active Erin Garsia APRN Active SPIRONOLACTONE 25 MG TAB 4 tablets by mouth daily SPIRONOLACTONE 88608248528 No Longer Active Erin Garsia APRN Active LEVAQUIN 500 MG TAB 1 tablet by mouth daily for 7 days LEVOFLOXACIN 88841392043 No Longer Active Erin Garsia APRN Active BACTRIM DS 800-160 MG TAB 1 tab by mouth twice daily TRIMETHOPRIM-SULFAMETHOXAZOLE 40863391182 No Longer Active Robbie Busby MD Active HYDRALAZINE HCL 50 MG ORAL TABS TWO BY MOUTH THREE TIMES DAILY HYDRALAZINE HCL 26728691299 No Longer Active Jillina Frazell [employer] Active HYDROCODONE-ACETAMINOPHEN 5-325 MG TABS 1 tab by mouth BID prn back pain 2013 HYDROCODONE-ACETAMINOPHEN 60874204243 No Longer Active Jillina Frazell [employer] Active HYDROCHLOROTHIAZIDE TABS Take one by mouth daily HYDROCHLOROTHIAZIDE TABS 61408275047 No Longer Active Jillina Frazell [employer] ATT[employer]NEY Active LAMISIL 125 MG ORAL PACK 1 TAB PO DAILY TERBINAFINE HCL 87859637415 No Longer Active Jillina Frazell [employer] ATT[employer]NEY Active TRILEPTAL 150 MG ORAL TABS 1 TAB PO Q HS OXCARBAZEPINE 79952364502 No Longer Active Jillina Frazell [employer] Active BETADINE 10 % EXT SOLN wash with solution to treat follicultis POVIDONE-IODINE 62151350390 No Longer Active Jillina Frazell [employer] Active NYSTATIN 808280 UNIT/ML M/T SUSP 5mL po QID x 10 days NYSTATIN 86468156060 No Longer Active Erin Ady [employer] Active PREDNISONE 20 MG TAB 1 tablet twice daily for 2 days, then 1 tablet once daily for 2 days PREDNISONE 19132800708 No Longer Active Robbie Busby MD Active CEFDINIR 300 MG ORAL CAPS Take 1 cap po bid x 10 days CEFDINIR 06916566653 No Longer Active Robbie Busby MD Active AMLODIPINE BESYLATE 10 MG TABS 1 tablet by mouth daily AMLODIPINE BESYLATE 47554488975 Active Robbie Busby MD Active CARVEDILOL 25 MG TABS 1 & 1/2 TAB po BID CARVEDILOL 06130384948 Active Robbie Busby MD Active NEXIUM 40 MG CPDR 1 cap by mouth daily ESOMEPRAZOLE MAGNESIUM 97488806797 Active Robbie Busby MD Active PROTONIX 40 MG SOLR 1 po qday for acid reflux PANTOPRAZOLE SODIUM 84835673930 No Longer Active Gali Raida Active KEFLEX 500 MG CAP 1 po TID x 10 days CEPHALEXIN 77936074098 No Longer Active Robbie Busby MD Active TOPIRAMATE 50 MG ORAL TABS take 1 tab po BID for migraines. TOPIRAMATE 03449036729 Active Robbie Busby MD Active TEMAZEPAM 15 MG ORAL CAPS 1 TAB PO Q HS TEMAZEPAM 00717070202 Active Robbie Busby MD Active ALPRAZOLAM 2 MG ORAL TABS 1 TAB PO BID ALPRAZOLAM 71168405219 Active Robbie Busby MD Active FENOFIBRATE 145 MG TABS Take one by mouth daily FENOFIBRATE 38896045176 No Longer Active Robbie Busby MD Active SPIRONOLACTONE 50 MG TABS 1 tablet by mouth twice a day SPIRONOLACTONE 34112178072 No Longer Active Robbie Busby MD Active HYDRALAZINE HCL 25 MG TABS 1 tablet by mouth tid for hypertension HYDRALAZINE HCL 67893296313 No Longer Active Robbie Busby MD Active VIIBRYD 40 MG TABS take 1 tab po qday for depression. VILAZODONE HCL 10699920245 No Longer Active Robbie Busby MD Active TERBINAFINE HCL 250 MG TABS 1 tab po qday for foot infection 2014 TERBINAFINE HCL 92148573942 No Longer Active Robbie Busby MD Active GABAPENTIN 300 MG CAPS 1 po q hs for nerve pain GABAPENTIN 90429438353 Active Robbie Busby MD Active CHERATUSSIN AC 100-10 MG/5ML ORAL SOLN 7.5 mL PO q 4-6 hrs PRN cough GUAIFENESIN-CODEINE 47192487322 No Longer Active Robbie Busby MD Active AZITHROMYCIN 250 MG ORAL TABS 2 tablets PO today---then, 1 tablet PO daily x 4 more days (and 1 optional refill) AZITHROMYCIN 98244316640 No Longer Active Robbie Busby MD Active NORVASC 10 MG TAB 1 tablet by mouth daily AMLODIPINE BESYLATE 42472763247 No Longer Active Alex ALVAREZ Active IMDUR 60 MG TAB CR take 1 tab po qday for blood pressure ISOSORBIDE MONONITRATE Active Robbie Busby MD Active ISOSORBIDE DINITRATE 30 MG TABS Take one by mouth daily ISOSORBIDE DINITRATE 93788608372 No Longer Active Robbie Busby MD Active VIIBRYD 40 MG TABS 1 TA B PO DAILY VILAZODONE HCL 95693650397 Active Robbie Busby MD Active ZITHROMAX 250 MG TAB 2 po today, then 1 po q days 2-5 AZITHROMYCIN 89809148731 No Longer Active Robbie Busby MD Active [id number]-[id number] 0.3 MG/24HR PTWK apply 2 patches q week for HTN CLONIDINE HCL 12305696659 Active Robbie Busby MD Active DOXAZOSIN MESYLATE 4 MG TABS Take one by mouth daily DOXAZOSIN MESYLATE 83875371573 Active Robbie Busby MD Active TOPROL XL 200 MG [id number] Take one by mouth daily METOPROLOL SUCCINATE 43407022074 Active Robbie Busby MD Active VENLAFAXINE HCL ER 150 MG [id number]-BMP Take one by mouth daily VENLAFAXINE HCL 22367256643 Active Robbie Busby MD Active LIPITOR 40 MG TABS Take one by mouth daily ATORVASTATIN CALCIUM 25011750434 Active Robbie Busby MD Active ISOSORBIDE DINITRATE 30 MG TABS Take one by mouth daily ISOSORBIDE DINITRATE 30 MG TABS 302107 ISOSORBIDE DINITRATE Inactive NORVASC 10 MG TAB 1 tablet by mouth daily NORVASC 10 MG TAB 505893 AMLODIPINE BESYLATE Inactive AZITHROMYCIN 250 MG ORAL TABS 2 tablets PO today---then, 1 tablet PO daily x 4 more days (and 1 optional refill) AZITHROMYCIN 250 MG ORAL TABS 9464977 AZITHROMYCIN Inactive CHERATUSSIN AC 100-10 MG/5ML ORAL SOLN 7.5 mL PO q 4-6 hrs PRN cough CHERATUSSIN AC 100-10 MG/5ML ORAL SOLN 420084 GUAIFENESIN- CODEINE Inactive VIIBRYD 40 MG TABS take 1 tab po qday for depression. VIIBRYD 40 MG TABS VILAZODONE HCL Inactive HYDRALAZINE HCL 25 MG TABS 1 tablet by mouth tid for hypertension HYDRALAZINE HCL 25 MG TABS 443781 HYDRALAZINE HCL Inactive SPIRONOLACTONE 50 MG TABS 1 tablet by mouth twice a day SPIRONOLACTONE 50 MG TABS 913739 SPIRONOLACTONE Inactive FENOFIBRATE 145 MG TABS Take one by mouth daily FENOFIBRATE 145 MG TABS 439259 FENOFIBRATE Inactive PROTONIX 40 MG SOLR 1 po qday for acid reflux PROTONIX 40 MG SOLR 876100 PANTOPRAZOLE SODIUM Inactive CEFDINIR 300 MG ORAL CAPS Take 1 cap po bid x 10 days CEFDINIR 300 MG ORAL CAPS 653587 CEFDINIR Inactive PREDNISONE 20 MG TAB 1 tablet twice daily for 2 days, then 1 tablet once daily for 2 days PREDNISONE 20 MG TAB 089102 PREDNISONE Inactive NYSTATIN 350292 UNIT/ML M/T SUSP 5mL po QID x 10 days NYSTATIN 391467 UNIT/ML M/T SUSP 322825 NYSTATIN Inactive BETADINE 10 % EXT SOLN wash with solution to treat follicultis BETADINE 10 % EXT SOLN 4634973 POVIDONE-IODINE Inactive TRILEPTAL 150 MG ORAL TABS 1 TAB PO Q HS TRILEPTAL 150 MG ORAL TABS 700061 OXCARBAZEPINE Inactive LAMISIL 125 MG ORAL PACK 1 TAB PO DAILY LAMISIL 125 MG ORAL PACK TERBINAFINE HCL Inactive HYDROCHLOROTHIAZIDE TABS Take one by mouth daily HYDROCHLOROTHIAZIDE TABS HYDROCHLOROTHIAZIDE TABS Inactive HYDROCODONE-ACETAMINOPHEN 5-325 MG TABS 1 tab by mouth BID prn back pain 2013 HYDROCODONE-ACETAMINOPHEN 5-325 MG TABS 944942 HYDROCODONE -ACETAMINOPHEN Inactive HYDRALAZINE HCL 50 MG ORAL TABS TWO BY MOUTH THREE TIMES DAILY HYDRALAZINE HCL 50 MG ORAL TABS 889979 HYDRALAZINE HCL Inactive LEVAQUIN 500 MG TAB 1 tablet by mouth daily for 7 days LEVAQUIN 500 MG TAB 752180 LEVOFLOXACIN Inactive SPIRONOLACTONE 25 MG TAB 4 tablets by mouth daily SPIRONOLACTONE 25 MG TAB 741583 SPIRONOLACTONE Inactive MECLIZINE HCL 25 MG TAB one 4 times a day as needed for dizziness MECLIZINE HCL 25 MG TAB 844142 MECLIZINE HCL Inactive CLONIDINE HCL 0.2 MG ORAL TABS 1 TAB BY MOUTH EVERY 8 HOURS 12/29 CLONIDINE HCL 0.2 MG ORAL TABS 852885 CLONIDINE HCL Inactive CYCLOBENZAPRINE HCL 10 MG TABS 1 tablet by mouth three times daily as needed for muscle spasm/pain for 10 days CYCLOBENZAPRINE HCL 10 MG TABS 626924 CYCLOBENZAPRINE HCL Inactive VITAMIN D3 48751 UNIT CAPS 2 CAPS PO WEEKLY VITAMIN D3 53337 UNIT CAPS CHOLECALCIFEROL Inactive FIORICET 50-300-40 MG ORAL CAPS take 1 tab po qday prn migraines. FIORICET 50-300-40 MG ORAL CAPS 268530 [id number]-[id number] Inactive FLONASE 50 MCG/ACT SUSP 1 spray each nostril twice daily for allergies and runny nose FLONASE 50 MCG/ACT SUSP 5802913 FLUTICASONE PROPIONATE Inactive LORATADINE 10 MG TABS 1 tablet by mouth daily for congestion and allergies. LORATADINE 10 MG TABS 336870 LORATADINE Inactive NITROSTAT 0.4 MG SUBL PRN NITROSTAT 0.4 MG SUBL 967735 NITROGLYCERIN Inactive ZITHROMAX 250 MG TAB 2 po today, then 1 po q days 2-5 ZITHROMAX 250 MG TAB 9318131 AZITHROMYCIN Inactive TERBINAFINE HCL 250 MG TABS 1 tab po qday for foot infection 2014 TERBINAFINE HCL 250 MG TABS 491647 TERBINAFINE HCL Inactive KEFLEX 500 MG CAP 1 po TID x 10 days KEFLEX 500 MG CAP 934104 CEPHALEXIN Inactive BACTRIM DS 800-160 MG TAB 1 tab by mouth twice daily BACTRIM DS 800-160 MG TAB 548350 TRIMETHOPRIM-SULFAMETHOXAZOLE Inactive PREDNISONE 20 MG TAB take 3 tabs daily for 3 days, 2 tabs daily for 3 days, 1 tab daily for 3 days, 1/2 tab daily for 4 days PREDNISONE 20 MG TAB 611717 PREDNISONE Inactive Advance Directives Directive Description Start [...] AUTO - Chemistry sodium, serum 142 mmol/L 269-669 0361/07/17 carbon dioxide, venous blood 28.2 mmol/L 21.0-32.0 [...] % 11.0-15.0 platelet count 185 THOUSAND/UL 10*3/mm3 291-156 3930/04/14 mean platelet volume 10.9 fL 7.5-12.5 Lab Report: LIPID PANEL, TSH/899, T4, FREE/866 - Chemistry cholesterol, serum 220 mg/dL 819-539 3616/04/14 HDL cholesterol, serum 30 mg/dL > OR=40 [...] 1.80 ng/mL 0.00-4.00 Lab Report: VITAMIN D, 25-HYDROXY/62480 - Chemistry vitamin D 25-hydroxy, serum 25 ng/mL 30-100 Office Visit: Confusion, dizziness after fall - Basic LDL target level 130 mg/dL Office Visit: Confusion, dizziness after fall - Chemistry HDL cholesterol, serum, target level 40 mg/dL triglyceride, target level 150 mg/dL cholesterol, target level 200 mg/dL Encounters Code Encounter Date Provider Facility CPT-48206 Level 4 Est. Patient 15:18:19 CDT Robbie Busby MD [facility] CPT-68922 Level 3 Est. Patient 09:00:37 CDT Rober Rodríguez [facility] CPT-07132 Level 3 Est. Patient 16:07:10 CDT Robbie Busby MD [facility] CPT-67769 Level 4 Est. Patient 11:56:16 CDT Erin Garsia [facility] CPT-86044 Level 3 Est. Patient 17:48:02 CDT Robbie Busby MD [facility] CPT-96273 Level 4 Est. 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 CPT-92368 Level 3 Est. Patient 09:16:37 CDT Robbie Busby MD [facility] CPT-11342 Level 3 Est. Patient 19:38:43 CDT Robbie Busby MD [facility] CPT-09727 Level 3 Est. Patient 11:53:38 CDT Robbie Busby MD [facility] CPT-77475 Level 4 Est. Patient 12:52:22 CDT Rober Rodríguez [facility] CPT-06209 Level 4 Est. Patient 22:55:17 CDT Robbie Busby MD [facility] CPT-05914 Level 3 Est. Patient 12:38:24 CDT Desmond Diaz DO [facility] CPT-41701 Level 4 Est. 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 Patient 14:50:10 CDT Robbie Busby MD [facility] CPT-37892 Level 4 Est. Patient 23:30:43 CDT Robbie Busby MD [facility] CPT-68244 Level 4 Est. Patient 10:30:43 CDT Robbie Busby MD [facility] CPT-54344 Level 3 Est. Patient 17:08:12 CDT Alex Shaw [facility] CPT-76330 Level 4 Est. Patient 17:51:38 CDT Robbie Busby MD [facility] CPT-00482 Level 4 Est. Patient 14:00:21 CDT Robbie Busby MD [facility] CPT-02122 Level 4 Est. Patient 12:46:48 CDT Robibe Busby MD [facility] CPT-38899 Level 4 Est. Patient 13:34:33 CDT Robbie Busby MD [facility] CPT-49998 Level 4 Est. Patient 16:58:28 CDT Robbie Busby MD [facility] CPT-81473 Level 3 Est. Patient 19:36:53 CDT Alex Shaw [facility] CPT-50581 Level 3 Est. Patient 12:58:15 CDT Robbie Busby MD [facility] Procedures Code Procedure Name Date Entry Date Standard Description CPT-J1071 Depo Testosterone 200mg 09:06:28 CDT CPT-45077 Abx/Therapy Injection 09:06:28 CDT CPT-J1071 Depo Testosterone 200mg 08:30:01 CDT CPT-60572 Abx/Therapy Injection 08:30:01 CDT CPT-J1071 Depo Testosterone 200mg 08:24:00 CDT CPT-62913 Abx/Therapy Injection 08:24:00 CDT CPT-68598 Venipuncture Draw Fee 14:39:06 CDT CPT-56052 Ribs unilateral 2V - XRAY USE ONLY 12:10:11 CDT CPT-52642 First Vx - Ix admin for Medicare patients 16:32:53 CDT CPT-38359 Boostrix Intramuscular Suspension 5-2.5-18.5 16:32:53 CDT CPT-80563 TB Skin Test 11:42:28 CDT CPT-48125 Tdap 7yrs or > 11:42:28 CDT CPT-J0696 Rocephin 1000 mg (Ceftriaxone) 17:43:43 DRILLER MACHINE CPT-J1040 Depo Medrol 80 mg (Methyl Prednisolone Acetate) 17:43: 43 DRILLER MACHINE CPT-J1100 Decadron 8mg (Dexamethasone) 17:43:42 DRILLER MACHINE CPT-81494 Abx/Therapy Injection 17:43:42 DRILLER MACHINE CPT-07682 Abx/Therapy Injection 17:43:42 DRILLER MACHINE CPT-J1040 Depo Medrol 80 mg (Methyl Prednisolone Acetate) 09:43: 34 DRILLER MACHINE CPT-J1100 Decadron 8mg (Dexamethasone) 09:43:34 DRILLER MACHINE CPT-J0696 Rocephin 1gm Inj Solr 09:43:34 DRILLER MACHINE CPT-44966 Wound Culture - LAB USE ONLY 14:00:21 CDT CPT-I/D I/D Abscess 09:16:37 CDT CPT-50170 Venipuncture Draw Fee 15:20:23 CDT CPT-47978 Microalbumin - LAB USE ONLY 16:02:19 CDT CPT-10929 CBC - LAB USE ONLY 16:02:19 CDT CPT-13980 Venipuncture Draw Fee 16:02:19 CDT CPT-G0438 Initial Annual Wellness Exam 08:10:28 CDT CPT-74571 Venipuncture Draw Fee 13:07:17 CDT CPT-G0008 Administration of Influenza Virus Vaccine 16:09:59 CDT CPT-07923 Fluzone Quadrivalent Intramuscular Suspension 0.5 ML 16: 09:59 CDT CPT-38353 Spec Collection and Handling Fee 15:05:50 CDT
--- OUTSIDE RECORDS SUMMARY | 2018-04-18 14:01 | XMS REPORT | Clinical Summary ---
Author Author Admin, [employer] Organization [employer] Address Unknown Phone Unavailable Allergies, Adverse Reactions, [...] unspecified sites URI 465.9 Active Rober Rodríguez SAT ACT INSTRUCTOR Acute upper respiratory infections of unspecified site [...] Rib pain, right sided 786.50 Active Robbie Bsuby MD Unspecified chest pain Vitamin D deficiency 268.9 Active Vanesas August Unspecified vitamin D deficiency Medication List Medication Instructions Start Date Stop Date Generic Name NDC Status Provider Patient Instruction VITAMIN D3 84379 UNIT ORAL TABS 2 po weekly CHOLECALCIFEROL 28852421858 Active JONATHAN Moncada Active OXYCODONE HCL ER 10 MG ORAL T12A 1 tab po 3 times qd. OXYCODONE HCL 85702855634 Active Robbie Busby MD Active NITROSTAT 0.4 MG SUBL PRN NITROGLYCERIN 70883778942 No Longer Active Robbie Busby MD Active LORATADINE 10 MG TABS 1 tablet by mouth daily for congestion and allergies. LORATADINE 13002669348 No Longer Active Robbie Busby MD Active FLONASE 50 MCG/ACT SUSP 1 spray each nostril twice daily for allergies and runny nose FLUTICASONE PROPIONATE 16981551810 No Longer Active Robbie Busby MD Active FIORICET 50-300-40 MG ORAL CAPS take 1 tab po qday prn migraines. [id number] 45251086529 No Longer Active Robbie Busby MD Active VITAMIN D3 78916 UNIT CAPS 2 CAPS PO WEEKLY CHOLECALCIFEROL 88187543281 No Longer Active Robbie Busby MD Active CYCLOBENZAPRINE HCL 10 MG TABS 1 tablet by mouth three times daily as needed for muscle spasm/pain for 10 days CYCLOBENZAPRINE HCL 82164257720 No Longer Active Robbie Busby MD Active PREDNISONE 20 MG TAB take 3 tabs daily for 3 days, 2 tabs daily for 3 days, 1 tab daily for 3 days, 1/2 tab daily for 4 days PREDNISONE 42810231328 No Longer Active Erin Garsia APRN Active CLONIDINE HCL 0.2 MG ORAL TABS 1 TAB BY MOUTH EVERY 8 HOURS 12/29 CLONIDINE HCL 88166665921 No Longer Active Erin Garsia APRN Active MECLIZINE HCL 25 MG TAB one 4 times a day as needed for dizziness MECLIZINE HCL 93721814452 No Longer Active Erin Garsia APRN Active SPIRONOLACTONE 25 MG TAB 4 tablets by mouth daily SPIRONOLACTONE 74287948590 No Longer Active Erin Garsia APRN Active LEVAQUIN 500 MG TAB 1 tablet by mouth daily for 7 days LEVOFLOXACIN 09245487072 No Longer Active Erin Garsia APRN Active BACTRIM DS 800-160 MG TAB 1 tab by mouth twice daily TRIMETHOPRIM-SULFAMETHOXAZOLE 05303272481 No Longer Active Robbie Busby MD Active HYDRALAZINE HCL 50 MG ORAL TABS TWO BY MOUTH THREE TIMES DAILY HYDRALAZINE HCL 31521700617 No Longer Active Rober Rodríguez APRN Active HYDROCODONE-ACETAMINOPHEN 5-325 MG TABS 1 tab by mouth BID prn back pain 2013 HYDROCODONE-ACETAMINOPHEN 36839208590 No Longer Active Jillld Rodríguez APRN Active HYDROCHLOROTHIAZIDE TABS Take one by mouth daily HYDROCHLOROTHIAZIDE TABS 16976993214 No Longer Active Jillina Frazell SAT ACT INSTRUCTOR Active LAMISIL 125 MG ORAL PACK 1 TAB PO DAILY TERBINAFINE HCL 27522660520 No Longer Active Jillina Frazell SAT ACT INSTRUCTOR Active TRILEPTAL 150 MG ORAL TABS 1 TAB PO Q HS OXCARBAZEPINE 84225235464 No Longer Active Jillina Frazell SAT ACT INSTRUCTOR Active BETADINE 10 % EXT SOLN wash with solution to treat follicultis POVIDONE-IODINE 61757571451 No Longer Active Jillina Frazell SAT ACT INSTRUCTOR Active NYSTATIN 802422 UNIT/ML M/T SUSP 5mL po QID x 10 days NYSTATIN 81053779909 No Longer Active Erin Garsia APRN Active PREDNISONE 20 MG TAB 1 tablet twice daily for 2 days, then 1 tablet once daily for 2 days PREDNISONE 25579287610 No Longer Active Robbie Busby MD Active CEFDINIR 300 MG ORAL CAPS Take 1 cap po bid x 10 days CEFDINIR 86468131547 No Longer Active Robbie Busby MD Active AMLODIPINE BESYLATE 10 MG TABS 1 tablet by mouth daily AMLODIPINE BESYLATE 92258666810 Active Robbie Busby MD Active CARVEDILOL 25 MG TABS 1 & 1/2 TAB po BID CARVEDILOL 17892690596 Active Robbie Busby MD Active NEXIUM 40 MG CPDR 1 cap by mouth daily ESOMEPRAZOLE MAGNESIUM 22331992884 Active Robbie Busby MD Active PROTONIX 40 MG SOLR 1 po qday for acid reflux PANTOPRAZOLE SODIUM 69244552207 No Longer Active Gali Raida Active KEFLEX 500 MG CAP 1 po TID x 10 days CEPHALEXIN 48040308546 No Longer Active Robbie Busby MD Active TOPIRAMATE 50 MG ORAL TABS take 1 tab po BID for migraines. TOPIRAMATE 99547087665 Active Robbie Busby MD Active TEMAZEPAM 15 MG ORAL CAPS 1 TAB PO Q HS TEMAZEPAM 46623929054 Active Robbie Busby MD Active ALPRAZOLAM 2 MG ORAL TABS 1 TAB PO BID ALPRAZOLAM 06143067983 Active Robbie Busby MD Active FENOFIBRATE 145 MG TABS Take one by mouth daily FENOFIBRATE 03211789433 No Longer Active Robbie Busby MD Active SPIRONOLACTONE 50 MG TABS 1 tablet by mouth twice a day SPIRONOLACTONE 82016540807 No Longer Active Robbie Busby MD Active HYDRALAZINE HCL 25 MG TABS 1 tablet by mouth tid for hypertension HYDRALAZINE HCL 32680937659 No Longer Active Robbie Busby MD Active VIIBRYD 40 MG TABS take 1 tab po qday for depression. VILAZODONE HCL 08746176519 No Longer Active Robbie Busby MD Active TERBINAFINE HCL 250 MG TABS 1 tab po qday for foot infection 2014 TERBINAFINE HCL 44349931587 No Longer Active Robbie Busby MD Active GABAPENTIN 300 MG CAPS 1 po q hs for nerve pain GABAPENTIN 88616836524 Active Robbie Busby MD Active CHERATUSSIN AC 100-10 MG/5ML ORAL SOLN 7.5 mL PO q 4-6 hrs PRN cough GUAIFENESIN-CODEINE 26979468127 No Longer Active Robbie Busby MD Active AZITHROMYCIN 250 MG ORAL TABS 2 tablets PO today---then, 1 tablet PO daily x 4 more days (and 1 optional refill) AZITHROMYCIN 83181799667 No Longer Active Robbie Busby MD Active NORVASC 10 MG TAB 1 tablet by mouth daily AMLODIPINE BESYLATE 80428267887 No Longer Active Alex ALVAREZ Active IMDUR 60 MG TAB CR take 1 tab po qday for blood pressure ISOSORBIDE MONONITRATE Active Robbie Busby MD Active ISOSORBIDE DINITRATE 30 MG TABS Take one by mouth daily ISOSORBIDE DINITRATE 97351048754 No Longer Active Robbie Busby MD Active VIIBRYD 40 MG TABS 1 TA B PO DAILY VILAZODONE HCL 50838717198 Active Robbie Busby MD Active ZITHROMAX 250 MG TAB 2 po today, then 1 po q days 2-5 AZITHROMYCIN 40046516616 No Longer Active Robbie Busby MD Active [id number]-[id number]-0 0.3 MG/24HR PTWK apply 2 patches q week for HTN CLONIDINE HCL 38193470732 Active Robbie Busby MD Active DOXAZOSIN MESYLATE 4 MG TABS Take one by mouth daily DOXAZOSIN MESYLATE 57259993792 Active Robbie Busby MD Active TOPROL XL 200 MG TL68M-YST Take one by mouth daily METOPROLOL SUCCINATE 96662395207 Active Robbie Busby MD Active VENLAFAXINE HCL ER 150 MG TV18C-YKG Take one by mouth daily VENLAFAXINE HCL 63153990466 Active Robbie Busby MD Active LIPITOR 40 MG TABS Take one by mouth daily ATORVASTATIN CALCIUM 79384962890 Active Robbie Busby MD Active ISOSORBIDE DINITRATE 30 MG TABS Take one by mouth daily ISOSORBIDE DINITRATE 30 MG TABS 883283 ISOSORBIDE DINITRATE Inactive NORVASC 10 MG TAB 1 tablet by mouth daily NORVASC 10 MG TAB 608467 AMLODIPINE BESYLATE Inactive AZITHROMYCIN 250 MG ORAL TABS 2 tablets PO today---then, 1 tablet PO daily x 4 more days (and 1 optional refill) AZITHROMYCIN 250 MG ORAL TABS 1922816 AZITHROMYCIN Inactive CHERATUSSIN AC 100-10 MG/5ML ORAL SOLN 7.5 mL PO q 4-6 hrs PRN cough CHERATUSSIN AC 100-10 MG/5ML ORAL SOLN 502867 GUAIFENESIN- CODEINE Inactive VIIBRYD 40 MG TABS take 1 tab po qday for depression. VIIBRYD 40 MG TABS VILAZODONE HCL Inactive HYDRALAZINE HCL 25 MG TABS 1 tablet by mouth tid for hypertension HYDRALAZINE HCL 25 MG TABS 014062 HYDRALAZINE HCL Inactive SPIRONOLACTONE 50 MG TABS 1 tablet by mouth twice a day SPIRONOLACTONE 50 MG TABS 674773 SPIRONOLACTONE Inactive FENOFIBRATE 145 MG TABS Take one by mouth daily FENOFIBRATE 145 MG TABS 453986 FENOFIBRATE Inactive PROTONIX 40 MG SOLR 1 po qday for acid reflux PROTONIX 40 MG SOLR 218435 PANTOPRAZOLE SODIUM Inactive CEFDINIR 300 MG ORAL CAPS Take 1 cap po bid x 10 days CEFDINIR 300 MG ORAL CAPS 846813 CEFDINIR Inactive PREDNISONE 20 MG TAB 1 tablet twice daily for 2 days, then 1 tablet once daily for 2 days PREDNISONE 20 MG TAB 748436 PREDNISONE Inactive NYSTATIN 225572 UNIT/ML M/T SUSP 5mL po QID x 10 days NYSTATIN 224480 UNIT/ML M/T SUSP 318636 NYSTATIN Inactive BETADINE 10 % EXT SOLN wash with solution to treat follicultis BETADINE 10 % EXT SOLN 6633155 POVIDONE-IODINE Inactive TRILEPTAL 150 MG ORAL TABS 1 TAB PO Q HS TRILEPTAL 150 MG ORAL TABS 630930 OXCARBAZEPINE Inactive LAMISIL 125 MG ORAL PACK 1 TAB PO DAILY LAMISIL 125 MG ORAL PACK TERBINAFINE HCL Inactive HYDROCHLOROTHIAZIDE TABS Take one by mouth daily HYDROCHLOROTHIAZIDE TABS HYDROCHLOROTHIAZIDE TABS Inactive HYDROCODONE-ACETAMINOPHEN 5-325 MG TABS 1 tab by mouth BID prn back pain 2013 HYDROCODONE-ACETAMINOPHEN 5-325 MG TABS 286313 HYDROCODONE -ACETAMINOPHEN Inactive HYDRALAZINE HCL 50 MG ORAL TABS TWO BY MOUTH THREE TIMES DAILY HYDRALAZINE HCL 50 MG ORAL TABS 501112 HYDRALAZINE HCL Inactive LEVAQUIN 500 MG TAB 1 tablet by mouth daily for 7 days LEVAQUIN 500 MG TAB 455368 LEVOFLOXACIN Inactive SPIRONOLACTONE 25 MG TAB 4 tablets by mouth daily SPIRONOLACTONE 25 MG TAB 125457 SPIRONOLACTONE Inactive MECLIZINE HCL 25 MG TAB one 4 times a day as needed for dizziness MECLIZINE HCL 25 MG TAB 388985 MECLIZINE HCL Inactive CLONIDINE HCL 0.2 MG ORAL TABS 1 TAB BY MOUTH EVERY 8 HOURS 12/29 CLONIDINE HCL 0.2 MG ORAL TABS 868028 CLONIDINE HCL Inactive CYCLOBENZAPRINE HCL 10 MG TABS 1 tablet by mouth three times daily as needed for muscle spasm/pain for 10 days CYCLOBENZAPRINE HCL 10 MG TABS 230166 CYCLOBENZAPRINE HCL Inactive VITAMIN D3 36505 UNIT CAPS 2 CAPS PO WEEKLY VITAMIN D3 75170 UNIT CAPS CHOLECALCIFEROL Inactive FIORICET 50-300-40 MG ORAL CAPS take 1 tab po qday prn migraines. FIORICET 50-300-40 MG ORAL CAPS 845476 [id number] Inactive FLONASE 50 MCG/ACT SUSP 1 spray each nostril twice daily for allergies and runny nose FLONASE 50 MCG/ACT SUSP 4295585 FLUTICASONE PROPIONATE Inactive LORATADINE 10 MG TABS 1 tablet by mouth daily for congestion and allergies. LORATADINE 10 MG TABS 629994 LORATADINE Inactive NITROSTAT 0.4 MG SUBL PRN NITROSTAT 0.4 MG SUBL 485273 NITROGLYCERIN Inactive ZITHROMAX 250 MG TAB 2 po today, then 1 po q days 2-5 ZITHROMAX 250 MG TAB 7435385 AZITHROMYCIN Inactive TERBINAFINE HCL 250 MG TABS 1 tab po qday for foot infection 2014 TERBINAFINE HCL 250 MG TABS 520590 TERBINAFINE HCL Inactive KEFLEX 500 MG CAP 1 po TID x 10 days KEFLEX 500 MG CAP 513143 CEPHALEXIN Inactive BACTRIM DS 800-160 MG TAB 1 tab by mouth twice daily BACTRIM DS 800-160 MG TAB 531840 TRIMETHOPRIM-SULFAMETHOXAZOLE Inactive PREDNISONE 20 MG TAB take 3 tabs daily for 3 days, 2 tabs daily for 3 days, 1 tab daily for 3 days, 1/2 tab daily for 4 days PREDNISONE 20 MG TAB 340846 PREDNISONE Inactive Advance Directives Directive Description Start [...] % 11.0-15.0 platelet count 185 THOUSAND/UL 10*3/mm3 405-995 6852/04/14 mean platelet volume 10.9 fL 7.5-12.5 Lab Report: LIPID PANEL, TSH/899, T4, FREE/866 - Chemistry cholesterol, serum 220 mg/dL 867-610 9624/04/14 HDL cholesterol, serum 30 mg/dL > OR=40 [...] mg/dL Encounters Code Encounter Date Provider Facility CPT-51017 Level 3 Est. Patient 16:07:10 CDT Robbie Busby MD [facility] CPT-45893 Level 4 Est. Patient 11:56:16 CDT Erin Garsia Formerly named [facility] CPT-05840 Level 3 Est. Patient 17:48:02 CDT Robbie Busby MD [facility] CPT-86060 Level 4 Est. Patient 12:00:49 DENTAL DIRECTOR Rober Rodríguez Formerly named [facility] CPT-97539 Level 3 Est. Patient 09:16:37 CDT Robbie Busby MD [facility] CPT-98450 Level 3 Est. Patient 19:38:43 CDT Robbie Busby MD [facility] CPT-91633 Level 3 Est. Patient 11:53:38 CDT Robbie Busby MD [facility] CPT-74934 Level 4 Est. Patient 12:52:22 CDT Rober Rodríguez Formerly named [facility] CPT-06630 Level 4 Est. Patient 22:55:17 CDT Robbie Busby MD [facility] CPT-60642 Level 3 Est. Patient 12:38:24 CDT Desmond Diaz DO [facility] CPT-69510 Level 4 Est. Patient 11:25:03 DENTAL DIRECTOR Robbie Busby MD [facility] CPT-89129 Level 4 Est. Patient 14:50:10 CDT Robbie Busby MD [facility] CPT-70373 Level 4 Est. Patient 23:30:43 CDT Robbie Busby MD [facility] CPT-21106 Level 4 Est. Patient 10:30:43 CDT Robbie Busby MD [facility] CPT-35902 Level 3 Est. Patient 17:08:12 CDT Alex Shaw [facility] CPT-43786 Level 4 Est. Patient 17:51:38 CDT Robbie Busby MD [facility] CPT-78457 Level 4 Est. Patient 14:00:21 CDT Robbie Busby MD [facility] CPT-04055 Level 4 Est. Patient 12:46:48 CDT Robbie Busby MD [facility] CPT-25582 Level 4 Est. Patient 13:34:33 CDT Robbie Busby MD [facility] CPT-41335 Level 4 Est. Patient 16:58:28 CDT Robbie Busby MD [facility] CPT-92149 Level 3 Est. Patient 19:36:53 CDT Alex ALVAREZ [facility] CPT-18170 Level 3 Est. Patient 12:58:15 CDT Robbie Busby MD [facility] Procedures Code Procedure Name Date Entry Date Standard Description CPT-15095 Venipuncture Draw Fee 14:39:06 CDT CPT-22663 Ribs unilateral 2V - XRAY USE ONLY 12:10:11 CDT CPT-10947 First Vx - Ix admin for Medicare patients 16:32:53 CDT CPT-12277 Boostrix Intramuscular Suspension 5-2.5-18.5 16:32:53 CDT CPT-31146 TB Skin Test 11:42:28 CDT CPT-51658 Tdap 7yrs or > 11:42:28 CDT CPT-J0696 Rocephin 1000 mg (Ceftriaxone) 17:43:43 DENTAL DIRECTOR CPT-J1040 Depo Medrol 80 mg (Methyl Prednisolone Acetate) 17:43: 43 DENTAL DIRECTOR CPT-J1100 Decadron 8mg (Dexamethasone) 17:43:42 DENTAL DIRECTOR CPT-90018 Abx/Therapy Injection 17:43:42 DENTAL DIRECTOR CPT-35751 Abx/Therapy Injection 17:43:42 DENTAL DIRECTOR CPT-J1040 Depo Medrol 80 mg (Methyl Prednisolone Acetate) 09:43: 34 DENTAL DIRECTOR CPT-J1100 Decadron 8mg (Dexamethasone) 09:43:34 DENTAL DIRECTOR CPT-J0696 Rocephin 1gm Inj Solr 09:43:34 DENTAL DIRECTOR CPT-11187 Wound Culture - LAB USE ONLY 14:00:21 CDT CPT-I/D I/D Abscess 09:16:37 CDT CPT-10680 Venipuncture Draw Fee 15:20:23 CDT CPT-54480 Microalbumin - LAB USE ONLY 16:02:19 CDT CPT-48258 CBC - LAB USE ONLY 16:02:19 CDT CPT-44041 Venipuncture Draw Fee 16:02:19 CDT CPT-G0438 Initial Annual Wellness Exam 08:10:28 CDT CPT-95254 Venipuncture Draw Fee 13:07:17 CDT CPT-G0008 Administration of Influenza Virus Vaccine 16:09:59 CDT CPT-77406 Fluzone Quadrivalent Intramuscular Suspension 0.5 ML 16: 09:59 CDT CPT-90496 Spec Collection and Handling Fee 15:05:50 CDT
--- OUTSIDE RECORDS SUMMARY | 2018-04-18 14:06 | XMS REPORT | Clinical Summary ---
Author Author Admin, AKUA Organization [employer] Address Unknown Phone Unavailable Allergies, Adverse Reactions, [...] Status Provider Patient Instruction GUAIFENESIN 600 MG [id number] 1 tab po q am GUAIFENESIN 53028224680 Active Jillina Frazell [employer]NAGER [employer]BUTION Active FLUTICASONE PROPIONATE 50 MCG/ACT SUSP 2 sprays per nostril bid for 1 week, then 1 spray bid FLUTICASONE PROPIONATE 35543760132 Active Jillina Frazell MANAGER [employer]BUT[employer] Active HYDRALAZINE HCL 25 MG ORAL TABS Take 1 tab BID. HYDRALAZINE HCL 13114599078 Active Jillina Frazell MANAGER DISTRIBUTION Active VITAMIN D3 94488 UNIT ORAL TABS 2 po weekly CHOLECALCIFEROL 05811530562 Active JONATHAN Moncada Active OXYCODONE HCL ER 10 MG ORAL T12A 1 tab po 3 times qd. OXYCODONE HCL 13365904480 Active Robbie Busby MD Active NITROSTAT 0.4 MG SUBL PRN NITROGLYCERIN 25620709739 No Longer Active Robbie Busby MD Active LORATADINE 10 MG TABS 1 tablet by mouth daily for congestion and allergies. LORATADINE 28427806210 No Longer Active Robbie Busby MD Active FLONASE 50 MCG/ACT SUSP 1 spray each nostril twice daily for allergies and runny nose FLUTICASONE PROPIONATE 12510051714 No Longer Active Robbie Busby MD Active FIORICET 50-300-40 MG ORAL CAPS take 1 tab po qday prn migraines. [id number] 70288744011 No Longer Active Robbie Busby MD Active VITAMIN D3 04952 UNIT CAPS 2 CAPS PO WEEKLY CHOLECALCIFEROL 49718598262 No Longer Active Robbie Busby MD Active CYCLOBENZAPRINE HCL 10 MG TABS 1 tablet by mouth three times daily as needed for muscle spasm/pain for 10 days CYCLOBENZAPRINE HCL 44679684084 No Longer Active Robbie Busby MD Active PREDNISONE 20 MG TAB take 3 tabs daily for 3 days, 2 tabs daily for 3 days, 1 tab daily for 3 days, 1/2 tab daily for 4 days PREDNISONE 54639494867 No Longer Active Erin Garsia APRN Active CLONIDINE HCL 0.2 MG ORAL TABS 1 TAB BY MOUTH EVERY 8 HOURS 12/29 CLONIDINE HCL 09599645641 No Longer Active Erin Garsia APRN Active MECLIZINE HCL 25 MG TAB one 4 times a day as needed for dizziness MECLIZINE HCL 59724703060 No Longer Active Erin Garsia APRN Active SPIRONOLACTONE 25 MG TAB 4 tablets by mouth daily SPIRONOLACTONE 93786394948 No Longer Active Erin Garsia APRN Active LEVAQUIN 500 MG TAB 1 tablet by mouth daily for 7 days LEVOFLOXACIN 64700731579 No Longer Active Erin Garsia APRN Active BACTRIM DS 800-160 MG TAB 1 tab by mouth twice daily TRIMETHOPRIM-SULFAMETHOXAZOLE 13478613174 No Longer Active Robbie Busby MD Active HYDRALAZINE HCL 50 MG ORAL TABS TWO BY MOUTH THREE TIMES DAILY HYDRALAZINE HCL 35690229963 No Longer Active Jillina Frazell MANAGER DISTRIBUTION Active HYDROCODONE-ACETAMINOPHEN 5-325 MG TABS 1 tab by mouth BID prn back pain 2013 HYDROCODONE-ACETAMINOPHEN 44553557482 No Longer Active Jillina Frazell MANAGER DISTRIBUTION Active HYDROCHLOROTHIAZIDE TABS Take one by mouth daily HYDROCHLOROTHIAZIDE TABS 78114594430 No Longer Active Jillina Frazell MANAGER DISTRIBUTION Active LAMISIL 125 MG ORAL PACK 1 TAB PO DAILY TERBINAFINE HCL 84525858930 No Longer Active Jillina Frazell MANAGER DISTRIBUTION Active TRILEPTAL 150 MG ORAL TABS 1 TAB PO Q HS OXCARBAZEPINE 97626106587 No Longer Active Jillina Frazell MANAGER DISTRIBUTION Active BETADINE 10 % EXT SOLN wash with solution to treat follicultis POVIDONE-IODINE 79210443837 No Longer Active Jillina Zulemal MANAGER DISTRIBUTION Active NYSTATIN 365691 UNIT/ML M/T SUSP 5mL po QID x 10 days NYSTATIN 87720114906 No Longer Active Erin Garsia APRN Active PREDNISONE 20 MG TAB 1 tablet twice daily for 2 days, then 1 tablet once daily for 2 days PREDNISONE 30791918116 No Longer Active Robbie Bsuby MD Active CEFDINIR 300 MG ORAL CAPS Take 1 cap po bid x 10 days CEFDINIR 47103382728 No Longer Active Robbie Busby MD Active AMLODIPINE BESYLATE 10 MG TABS 1 tablet by mouth daily AMLODIPINE BESYLATE 80914875033 Active Robbie Busby MD Active CARVEDILOL 25 MG TABS 1 & 1/2 TAB po BID CARVEDILOL 41291439939 Active Robbie Busby MD Active NEXIUM 40 MG CPDR 1 cap by mouth daily ESOMEPRAZOLE MAGNESIUM 75786618075 Active Robbie Busby MD Active PROTONIX 40 MG SOLR 1 po qday for acid reflux PANTOPRAZOLE SODIUM 30187931252 No Longer Active Gali Raida Active KEFLEX 500 MG CAP 1 po TID x 10 days CEPHALEXIN 38608749552 No Longer Active Robbie Busby MD Active TOPIRAMATE 50 MG ORAL TABS take 1 tab po BID for migraines. TOPIRAMATE 52786997864 Active Robbie Busby MD Active TEMAZEPAM 15 MG ORAL CAPS 1 TAB PO Q HS TEMAZEPAM 67814703693 Active Robbie Busby MD Active ALPRAZOLAM 2 MG ORAL TABS 1 TAB PO BID ALPRAZOLAM 31011874105 Active Robbie Busby MD Active FENOFIBRATE 145 MG TABS Take one by mouth daily FENOFIBRATE 00430426668 No Longer Active Robbie Busby MD Active SPIRONOLACTONE 50 MG TABS 1 tablet by mouth twice a day SPIRONOLACTONE 67101016080 No Longer Active Robbie Busby MD Active HYDRALAZINE HCL 25 MG TABS 1 tablet by mouth tid for hypertension HYDRALAZINE HCL 02999982896 No Longer Active Robbie Busby MD Active VIIBRYD 40 MG TABS take 1 tab po qday for depression. VILAZODONE HCL 38956295659 No Longer Active Robbie Busby MD Active TERBINAFINE HCL 250 MG TABS 1 tab po qday for foot infection 2014 TERBINAFINE HCL 09584357737 No Longer Active Robbie Busby MD Active GABAPENTIN 300 MG CAPS 1 po q hs for nerve pain GABAPENTIN 85484015212 Active Robbie Busby MD Active CHERATUSSIN AC 100-10 MG/5ML ORAL SOLN 7.5 mL PO q 4-6 hrs PRN cough GUAIFENESIN-CODEINE 41356555917 No Longer Active Robbie Busby MD Active AZITHROMYCIN 250 MG ORAL TABS 2 tablets PO today---then, 1 tablet PO daily x 4 more days (and 1 optional refill) AZITHROMYCIN 47462717248 No Longer Active Robbie Busby MD Active NORVASC 10 MG TAB 1 tablet by mouth daily AMLODIPINE BESYLATE 56798009236 No Longer Active Alex ALVAREZ Active IMDUR 60 MG TAB CR take 1 tab po qday for blood pressure ISOSORBIDE MONONITRATE Active Robbie Busby MD Active ISOSORBIDE DINITRATE 30 MG TABS Take one by mouth daily ISOSORBIDE DINITRATE 22603826051 No Longer Active Robbie Busby MD Active VIIBRYD 40 MG TABS 1 TA B PO DAILY VILAZODONE HCL 64032117611 Active Robbie Busby MD Active ZITHROMAX 250 MG TAB 2 po today, then 1 po q days 2-5 AZITHROMYCIN 80076878040 No Longer Active Robbie Busby MD Active [id number]-[id number]-3 0.3 MG/24HR PTWK apply 2 patches q week for HTN CLONIDINE HCL 75951753372 Active Robbie Busby MD Active DOXAZOSIN MESYLATE 4 MG TABS Take one by mouth daily DOXAZOSIN MESYLATE 15644041510 Active Robbie Busby MD Active TOPROL XL 200 MG [id number] Take one by mouth daily METOPROLOL SUCCINATE 06764879784 Active Robbie Busby MD Active VENLAFAXINE HCL ER 150 MG [id number] Take one by mouth daily VENLAFAXINE HCL 72373432672 Active Robbie Busby MD Active LIPITOR 40 MG TABS Take one by mouth daily ATORVASTATIN CALCIUM 89768207484 Active Robbie Busby MD Active ISOSORBIDE DINITRATE 30 MG TABS Take one by mouth daily ISOSORBIDE DINITRATE 30 MG TABS 471807 ISOSORBIDE DINITRATE Inactive NORVASC 10 MG TAB 1 tablet by mouth daily NORVASC 10 MG TAB 948237 AMLODIPINE BESYLATE Inactive AZITHROMYCIN 250 MG ORAL TABS 2 tablets PO today---then, 1 tablet PO daily x 4 more days (and 1 optional refill) AZITHROMYCIN 250 MG ORAL TABS 2658367 AZITHROMYCIN Inactive CHERATUSSIN AC 100-10 MG/5ML ORAL SOLN 7.5 mL PO q 4-6 hrs PRN cough CHERATUSSIN AC 100-10 MG/5ML ORAL SOLN 254396 GUAIFENESIN- CODEINE Inactive VIIBRYD 40 MG TABS take 1 tab po qday for depression. VIIBRYD 40 MG TABS VILAZODONE HCL Inactive HYDRALAZINE HCL 25 MG TABS 1 tablet by mouth tid for hypertension HYDRALAZINE HCL 25 MG TABS 646724 HYDRALAZINE HCL Inactive SPIRONOLACTONE 50 MG TABS 1 tablet by mouth twice a day SPIRONOLACTONE 50 MG TABS 266757 SPIRONOLACTONE Inactive FENOFIBRATE 145 MG TABS Take one by mouth daily FENOFIBRATE 145 MG TABS 885317 FENOFIBRATE Inactive PROTONIX 40 MG SOLR 1 po qday for acid reflux PROTONIX 40 MG SOLR 868305 PANTOPRAZOLE SODIUM Inactive CEFDINIR 300 MG ORAL CAPS Take 1 cap po bid x 10 days CEFDINIR 300 MG ORAL CAPS 058328 CEFDINIR Inactive PREDNISONE 20 MG TAB 1 tablet twice daily for 2 days, then 1 tablet once daily for 2 days PREDNISONE 20 MG TAB 293088 PREDNISONE Inactive NYSTATIN 885240 UNIT/ML M/T SUSP 5mL po QID x 10 days NYSTATIN 073430 UNIT/ML M/T SUSP 559815 NYSTATIN Inactive BETADINE 10 % EXT SOLN wash with solution to treat follicultis BETADINE 10 % EXT SOLN 3808098 POVIDONE-IODINE Inactive TRILEPTAL 150 MG ORAL TABS 1 TAB PO Q HS TRILEPTAL 150 MG ORAL TABS 335187 OXCARBAZEPINE Inactive LAMISIL 125 MG ORAL PACK 1 TAB PO DAILY LAMISIL 125 MG ORAL PACK TERBINAFINE HCL Inactive HYDROCHLOROTHIAZIDE TABS Take one by mouth daily HYDROCHLOROTHIAZIDE TABS HYDROCHLOROTHIAZIDE TABS Inactive HYDROCODONE-ACETAMINOPHEN 5-325 MG TABS 1 tab by mouth BID prn back pain 2013 HYDROCODONE-ACETAMINOPHEN 5-325 MG TABS 029713 HYDROCODONE -ACETAMINOPHEN Inactive HYDRALAZINE HCL 50 MG ORAL TABS TWO BY MOUTH THREE TIMES DAILY HYDRALAZINE HCL 50 MG ORAL TABS 018558 HYDRALAZINE HCL Inactive LEVAQUIN 500 MG TAB 1 tablet by mouth daily for 7 days LEVAQUIN 500 MG TAB 911826 LEVOFLOXACIN Inactive SPIRONOLACTONE 25 MG TAB 4 tablets by mouth daily SPIRONOLACTONE 25 MG TAB 653283 SPIRONOLACTONE Inactive MECLIZINE HCL 25 MG TAB one 4 times a day as needed for dizziness MECLIZINE HCL 25 MG TAB 311105 MECLIZINE HCL Inactive CLONIDINE HCL 0.2 MG ORAL TABS 1 TAB BY MOUTH EVERY 8 HOURS 12/29 CLONIDINE HCL 0.2 MG ORAL TABS 535829 CLONIDINE HCL Inactive CYCLOBENZAPRINE HCL 10 MG TABS 1 tablet by mouth three times daily as needed for muscle spasm/pain for 10 days CYCLOBENZAPRINE HCL 10 MG TABS 366912 CYCLOBENZAPRINE HCL Inactive VITAMIN D3 73797 UNIT CAPS 2 CAPS PO WEEKLY VITAMIN D3 48110 UNIT CAPS CHOLECALCIFEROL Inactive FIORICET 50-300-40 MG ORAL CAPS take 1 tab po qday prn migraines. FIORICET 50-300-40 MG ORAL CAPS 121050 [id number] Inactive FLONASE 50 MCG/ACT SUSP 1 spray each nostril twice daily for allergies and runny nose FLONASE 50 MCG/ACT SUSP 0783397 FLUTICASONE PROPIONATE Inactive LORATADINE 10 MG TABS 1 tablet by mouth daily for congestion and allergies. LORATADINE 10 MG TABS 119313 LORATADINE Inactive NITROSTAT 0.4 MG SUBL PRN NITROSTAT 0.4 MG SUBL 201750 NITROGLYCERIN Inactive ZITHROMAX 250 MG TAB 2 po today, then 1 po q days 2-5 ZITHROMAX 250 MG TAB 3688224 AZITHROMYCIN Inactive TERBINAFINE HCL 250 MG TABS 1 tab po qday for foot infection 2014 TERBINAFINE HCL 250 MG TABS 983226 TERBINAFINE HCL Inactive KEFLEX 500 MG CAP 1 po TID x 10 days KEFLEX 500 MG CAP 830878 CEPHALEXIN Inactive BACTRIM DS 800-160 MG TAB 1 tab by mouth twice daily BACTRIM DS 800-160 MG TAB 398543 TRIMETHOPRIM-SULFAMETHOXAZOLE Inactive PREDNISONE 20 MG TAB take 3 tabs daily for 3 days, 2 tabs daily for 3 days, 1 tab daily for 3 days, 1/2 tab daily for 4 days PREDNISONE 20 MG TAB 890791 PREDNISONE Inactive Advance Directives Directive Description Start [...] AUTO - Chemistry sodium, serum 142 mmol/L 728-861 3759/07/17 carbon dioxide, venous blood 28.2 mmol/L 21.0-32.0 [...] % 11.0-15.0 platelet count 185 THOUSAND/UL 10*3/mm3 124-174 9183/04/14 mean platelet volume 10.9 fL 7.5-12.5 Lab Report: LIPID PANEL, TSH/899, T4, FREE/866 - Chemistry cholesterol, serum 220 mg/dL 474-883 8478/04/14 HDL cholesterol, serum 30 mg/dL > OR=40 triglyceride, serum, fasting 466 mg/dL <150 LDL cholesterol, serum SEE NOTE mg/dL (calc) mg/dL <130 cholesterol/HDL ratio, serum 7.3 (calc) < OR=5.0 Lab Report: MICROALB/CREAT W/RATIO - Chemistry albumin/creatinine ratio, urine < 30 mg/g mg/g{creat} 0-29 Lab Report: MICROALB/CREAT W/RATIO - Lab microalbumin, urine 80 0-19 Lab Report: VITAMIN D, 25-HYDROXY/76804 - Chemistry vitamin D 25-hydroxy, serum 25 ng/mL 30-100 Office Visit: Confusion, dizziness after fall - Basic LDL target level 130 mg/dL Office Visit: Confusion, dizziness after fall - Chemistry HDL cholesterol, serum, target level 40 mg/dL triglyceride, target level 150 mg/dL cholesterol, target level 200 mg/dL Encounters Code Encounter Date Provider Facility CPT-30686 Level 3 Est. Patient 09:00:37 CDT Rober Rodríguez [facility] [place] CPT-02017 Level 3 Est. Patient 16:07:10 CDT Robbie Busby MD [facility] CPT-99255 Level 4 Est. Patient 11:56:16 CDT Erin Garsia [facility] [place] CPT-70167 Level 3 Est. Patient 17:48:02 CDT Robbie Busby MD [facility] CPT-50645 Level 4 Est. Patient 12:00:49 FRONT CLERK Rober Rodríguez [facility] [place] CPT-30389 Level 3 Est. Patient 09:16:37 CDT Robbie Busby MD [facility] CPT-12263 Level 3 Est. Patient 19:38:43 CDT Robbie Busby MD [facility] CPT-51170 Level 3 Est. Patient 11:53:38 CDT Robbie Busby MD [facility] CPT-91400 Level 4 Est. Patient 12:52:22 CDT Rober Rodríguez [facility] [place] CPT-49858 Level 4 Est. Patient 22:55:17 CDT Robbie Busby MD [facility] CPT-22588 Level 3 Est. Patient 12:38:24 CDT Desmond Diaz DO [facility] CPT-81498 Level 4 Est. Patient 11:25:03 FRONT CLERK Robbie Busby MD [facility] CPT-13456 Level 4 Est. Patient 14:50:10 CDT Robbie Busby MD [facility] CPT-73798 Level 4 Est. Patient 23:30:43 CDT Robbie Busby MD [facility] CPT-49071 Level 4 Est. Patient 10:30:43 CDT Robbie Busby MD [facility] CPT-67023 Level 3 Est. Patient 17:08:12 CDT Alex ALVAREZ [facility] CPT-18125 Level 4 Est. Patient 17:51:38 CDT Robbie Busby MD [facility] CPT-80447 Level 4 Est. Patient 14:00:21 CDT Robbie Busby MD [facility] CPT-99396 Level 4 Est. Patient 12:46:48 CDT Robbie Busby MD [facility] CPT-37443 Level 4 Est. Patient 13:34:33 CDT Robbie Busby MD [facility] CPT-35026 Level 4 Est. Patient 16:58:28 CDT Robbie Busby MD [facility] CPT-56492 Level 3 Est. Patient 19:36:53 CDT Alex Shaw [facility] CPT-27353 Level 3 Est. Patient 12:58:15 CDT Robbie Busby MD [facility] Procedures Code Procedure Name Date Entry Date Standard Description CPT-95918 Venipuncture Draw Fee 14:39:06 CDT CPT-62860 Ribs unilateral 2V - XRAY USE ONLY 12:10:11 CDT CPT-19363 First Vx - Ix admin for Medicare patients 16:32:53 CDT CPT-98049 Boostrix Intramuscular Suspension 5-2.5-18.5 16:32:53 CDT CPT-17403 TB Skin Test 11:42:28 CDT CPT-88315 Tdap 7yrs or > 11:42:28 CDT CPT-J0696 Rocephin 1000 mg (Ceftriaxone) 17:43:43 FRONT CLERK CPT-J1040 Depo Medrol 80 mg (Methyl Prednisolone Acetate) 17:43: 43 FRONT CLERK CPT-J1100 Decadron 8mg (Dexamethasone) 17:43:42 FRONT CLERK CPT-15273 Abx/Therapy Injection 17:43:42 FRONT CLERK CPT-43226 Abx/Therapy Injection 17:43:42 FRONT CLERK CPT-J1040 Depo Medrol 80 mg (Methyl Prednisolone Acetate) 09:43: 34 FRONT CLERK CPT-J1100 Decadron 8mg (Dexamethasone) 09:43:34 FRONT CLERK CPT-J0696 Rocephin 1gm Inj Solr 09:43:34 FRONT CLERK CPT-96993 Wound Culture - LAB USE ONLY 14:00:21 CDT CPT-I/D I/D Abscess 09:16:37 CDT CPT-87357 Venipuncture Draw Fee 15:20:23 CDT CPT-51271 Microalbumin - LAB USE ONLY 16:02:19 CDT CPT-66138 CBC - LAB USE ONLY 16:02:19 CDT CPT-14097 Venipuncture Draw Fee 16:02:19 CDT CPT-G0438 Initial Annual Wellness Exam 08:10:28 CDT CPT-24299 Venipuncture Draw Fee 13:07:17 CDT CPT-G0008 Administration of Influenza Virus Vaccine 16:09:59 CDT CPT-37891 Fluzone Quadrivalent Intramuscular Suspension 0.5 ML 16: 09:59 CDT CPT-26357 Spec Collection and Handling Fee 15:05:50 CDT
--- OUTSIDE RECORDS SUMMARY | 2018-04-18 14:10 | XMS REPORT | Clinical Summary ---
[...] wash with solution to treat follicultis POVIDONE-IODINE 37930941080 Active Robbie Busby MD Active KEFLEX 500 MG CAP 1 po TID x 10 days CEPHALEXIN 63578047719 No Longer Active Robbie Busby MD Active FIORICET 50-300-40 MG ORAL CAPS take 1 tab po qday prn migraines. [id number] 25480550080 Active Robbie Busby MD Active TOPIRAMATE 50 MG ORAL TABS take 1 tab po BID for migraines. TOPIRAMATE 94562487578 Active Robbie Busby MD Active HYDRALAZINE HCL 50 MG ORAL TABS TWO BY MOUTH THREE TIMES DAILY HYDRALAZINE HCL 57010547668 Active Robbie Busby MD Active MECLIZINE HCL 25 MG TAB one 4 times a day as needed for dizziness MECLIZINE HCL 36484548079 Active Robbie Busby MD Active TRILEPTAL 150 MG ORAL TABS 1 TAB PO Q HS OXCARBAZEPINE 15563936166 Active Robbie Busby MD Active TEMAZEPAM 15 MG ORAL CAPS 1 TAB PO Q HS TEMAZEPAM 00331929713 Active Robbie Busby MD Active ALPRAZOLAM 2 MG ORAL TABS 1 TAB PO BID ALPRAZOLAM 55761927388 Active Robbie Busby MD Active FENOFIBRATE 145 MG TABS Take one by mouth daily FENOFIBRATE 03357955319 No Longer Active Robbie Busby MD Active LAMISIL 125 MG ORAL PACK 1 TAB PO DAILY TERBINAFINE HCL 42052230425 Active Robbie Busby MD Active SPIRONOLACTONE 50 MG TABS 1 tablet by mouth twice a day SPIRONOLACTONE 79182158758 No Longer Active Robbie Busby MD Active HYDRALAZINE HCL 25 MG TABS 1 tablet by mouth tid for hypertension HYDRALAZINE HCL 13813578586 No Longer Active Robbie Busby MD Active VIIBRYD 40 MG TABS take 1 tab po qday for depression. VILAZODONE HCL 42934137994 No Longer Active Robbie Busby MD Active TERBINAFINE HCL 250 MG TABS 1 tab po qday for foot infection 2014 TERBINAFINE HCL 67717850326 No Longer Active Robbie Busby MD Active GABAPENTIN 300 MG CAPS 1 po q hs for nerve pain GABAPENTIN 33458986551 Active Robbie Busby MD Active FLONASE 50 MCG/ACT SUSP 1 spray each nostril twice daily for allergies and runny nose FLUTICASONE PROPIONATE 37171053951 Active Robbie Busby MD Active CHERATUSSIN AC 100-10 MG/5ML ORAL SOLN 7.5 mL PO q 4-6 hrs PRN cough GUAIFENESIN-CODEINE 79344392524 No Longer Active Robbie Busby MD Active AZITHROMYCIN 250 MG ORAL TABS 2 tablets PO today---then, 1 tablet PO daily x 4 more days (and 1 optional refill) AZITHROMYCIN 46534959689 No Longer Active Robbie Busby MD Active CLONIDINE HCL 0.2 MG ORAL TABS 1 TAB BY MOUTH EVERY 8 HOURS CLONIDINE HCL 86848692141 Active Robbie Busby MD Active HYDROCHLOROTHIAZIDE TABS Take one by mouth daily HYDROCHLOROTHIAZIDE TABS 09005860787 Active Alex ALVAREZ Active NORVASC 10 MG TAB 1 tablet by mouth daily AMLODIPINE BESYLATE 83897631926 No Longer Active Alex ALVAREZ Active PROTONIX 40 MG SOLR 1 po qday for acid reflux PANTOPRAZOLE SODIUM 70554549321 Active Robbie Busby MD Active IMDUR 60 MG TAB CR take 1 tab po qday for blood pressure ISOSORBIDE MONONITRATE Active Robbie Busby MD Active ISOSORBIDE DINITRATE 30 MG TABS Take one by mouth daily ISOSORBIDE DINITRATE 62534135086 No Longer Active Robbie Busby MD Active VIIBRYD 40 MG TABS 1 TA B PO DAILY VILAZODONE HCL 79270075836 Active Robbie Busby MD Active LORATADINE 10 MG TABS 1 tablet by mouth daily for congestion and allergies. LORATADINE 40866488116 Active Robbie Busby MD Active ZITHROMAX 250 MG TAB 2 po today, then 1 po q days 2-5 AZITHROMYCIN 93836896844 No Longer Active Robbie Busby MD Active HYDROCODONE-ACETAMINOPHEN 5-325 MG TABS 1 tab by mouth BID prn back pain 2013 HYDROCODONE-ACETAMINOPHEN 15560666488 Active Robbie Busby MD Active [id number]-[id number] 0.3 MG/24HR PTWK apply 2 patches q week for HTN CLONIDINE HCL 63987478584 Active Robbie Busby MD Active NITROSTAT 0.4 MG SUBL PRN NITROGLYCERIN 18540806061 Active Robbie Busby MD Active DOXAZOSIN MESYLATE 4 MG TABS Take one by mouth daily DOXAZOSIN MESYLATE 89787129513 Active Robbie Busby MD Active TOPROL XL 200 MG CL93G-LIS Take one by mouth daily METOPROLOL SUCCINATE 92043050439 Active Robbie Busby MD Active VENLAFAXINE HCL ER 150 MG [id number]-RNK Take one by mouth daily VENLAFAXINE HCL 31181794179 Active Robbie Busby MD Active LIPITOR 40 MG TABS Take one by mouth daily ATORVASTATIN CALCIUM 12732747827 Active Robbie Busby MD Active ISOSORBIDE DINITRATE 30 MG TABS Take one by mouth daily ISOSORBIDE DINITRATE 30 MG TABS 067253 ISOSORBIDE DINITRATE Inactive NORVASC 10 MG TAB 1 tablet by mouth daily NORVASC 10 MG TAB 973213 AMLODIPINE BESYLATE Inactive AZITHROMYCIN 250 MG ORAL TABS 2 tablets PO today---then, 1 tablet PO daily x 4 more days (and 1 optional refill) AZITHROMYCIN 250 MG ORAL TABS 6212432 AZITHROMYCIN Inactive CHERATUSSIN AC 100-10 MG/5ML ORAL SOLN 7.5 mL PO q 4-6 hrs PRN cough CHERATUSSIN AC 100-10 MG/5ML ORAL SOLN 653032 GUAIFENESIN- CODEINE Inactive VIIBRYD 40 MG TABS take 1 tab po qday for depression. VIIBRYD 40 MG TABS VILAZODONE HCL Inactive HYDRALAZINE HCL 25 MG TABS 1 tablet by mouth tid for hypertension HYDRALAZINE HCL 25 MG TABS 748293 HYDRALAZINE HCL Inactive SPIRONOLACTONE 50 MG TABS 1 tablet by mouth twice a day SPIRONOLACTONE 50 MG TABS 185466 SPIRONOLACTONE Inactive FENOFIBRATE 145 MG TABS Take one by mouth daily FENOFIBRATE 145 MG TABS 773362 FENOFIBRATE Inactive ZITHROMAX 250 MG TAB 2 po today, then 1 po q days 2-5 ZITHROMAX 250 MG TAB 5336997 AZITHROMYCIN Inactive TERBINAFINE HCL 250 MG TABS 1 tab po qday for foot infection 2014 TERBINAFINE HCL 250 MG TABS 415763 TERBINAFINE HCL Inactive KEFLEX 500 MG CAP 1 po TID x 10 days KEFLEX 500 MG CAP 888862 CEPHALEXIN Inactive Vital Signs Date Name Value [...] g/dL platelet count 285 10*3/mm3 Lab Report: Creatinine - Chemistry creatinine, serum 1.40 mg/dL 0.60-1.30 Lab Report: Lipid Panel, HEPATIC PANEL - Chemistry cholesterol, serum 211 mg/dL 358-038 6391/08/31 triglyceride, serum, fasting 429 mg/dL 30-200 HDL cholesterol, serum 25 mg/dL 32-96 LDL cholesterol, serum 100 mg/dL 0-130 aspartate aminotransferase (SGOT), serum 19 U/L 15-37 alanine aminotransferase (SGPT), serum 32 U/L 12-78 bilirubin, serum, total 0.70 mg/dL 0.00-1.00 Lab Report: Prostatic Specific Ag - Chemistry prostate specific antigen 1.31 ng/mL 0.00-4.00 Encounters Code Encounter Date Provider Facility CPT-43785 Level 4 Est. 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 Patient 14:50:10 CDT Robbie Busby MD [facility] CPT-70459 Level 4 Est. Patient 23:30:43 CDT Robbie Busby MD [facility] CPT-86066 Level 4 Est. Patient 10:30:43 CDT Robbie Busby MD [facility] CPT-46934 Level 3 Est. Patient 17:08:12 CDT Alex Shaw [facility] CPT-06356 Level 4 Est. Patient 17:51:38 CDT Robbie Busby MD [facility] CPT-24586 Level 4 Est. Patient 14:00:21 CDT Robbie Busby MD [facility] CPT-07253 Level 4 Est. Patient 12:46:48 CDT Robbie Busby MD [facility] CPT-67723 Level 4 Est. Patient 13:34:33 CDT Robbie Busby MD [facility] CPT-10952 Level 4 Est. Patient 16:58:28 CDT Robbie Busby MD [facility] CPT-25121 Level 3 Est. Patient 19:36:53 CDT Alex Shaw [facility] CPT-57587 Level 3 Est. Patient 12:58:15 CDT Robbie Busby MD [facility] Procedures Code Procedure Name Date Entry Date Standard Description CPT-G0008 Administration of Influenza Virus Vaccine 16:09:59 CDT CPT-93587 Fluzone Quadrivalent Intramuscular Suspension 0.5 ML 16: 09:59 CDT CPT-73430 Spec Collection and Handling Fee 15:05:50 CDT
--- OUTSIDE RECORDS SUMMARY | 2018-04-18 14:12 | XMS REPORT | Clinical Summary ---
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 Desmond Diaz DO Other malignant secondary hypertension Tachycardia 785.0 Active Rober Rodríguez BREAK OUT MAN Tachycardia, unspecified Insect bite, infected 919.5 Resolved Desmond Diaz DO Insect bite, nonvenomous, of other, multiple, and unspecified sites, infected Abscess, skin 682.9 Resolved Desmond Diaz DO Cellulitis and abscess of unspecified sites URI 465.9 Resolved Desmond Diaz DO Acute upper respiratory infections of unspecified site Hypertension 401.9 Active Rober Rodríguez BREAK OUT MAN Unspecified essential hypertension Sinusitis - acute 461.9 [...] Unspecified vitamin D deficiency Myalgias 729.1 Resolved Dsemond W Joe DO Myalgia and myositis, unspecified URI 465.9 Resolved Desmond Dante Joe DO Acute upper respiratory infections of unspecified site Hypogonadism, low testosterone 257.2 Active Erin Mai BREAK OUT MAN Other testicular hypofunction Low back pain, chronic [...] unspecified site Sinusitis ICD-461.9 Inactive Emily Atwood [employer] SERVICES PROFESSIONAL 2017 Low back pain, acute ICD-724.2 Inactive Emily Atwood [employer] SERVICES PROFESSIONAL Low back pain, chronic ICD-724.2 Inactive Emily Atwood [employer] SERVICES PROFESSIONAL Bronchitis, acute ICD-466.0 Inactive Emily Atwood [employer] SERVICES PROFESSIONAL Onychomycosis, toenails ICD-110.1 Inactive Emily Atwood [employer] SERVICES PROFESSIONAL Dizziness ICD-780.4 Inactive Emily Atwood [employer]ICAL SERVICES PROFESSIONAL 2017 Folliculitis ICD-704.8 Inactive Emily Atwood [employer] SERVICES PROFESSIONAL Pharyngitis-Acute ICD-462 Inactive Emily Atwood [employer] SERVICES PROFESSIONAL Fatigue ICD-780.79 Inactive Emily Atwood [employer]ICAL SERVICES PROFESSIONAL 09/20 Hypertension, secondary, malignant ICD-405.09 Inactive Emily Atwood [employer] SERVICES PROFESSIONAL Insect bite, infected ICD-919.5 Inactive Emily Atwood [employer]ICAL SERVICES PROFESSIONAL Abscess, skin ICD-682.9 Inactive Emily Atwood [employer]ICAL SERVICES PROFESSIONAL URI ICD-465.9 Inactive Emily Atwood [employer]ICAL SERVICES PROFESSIONAL Sinusitis - acute ICD-461.9 Inactive Emily Atwood [employer] SERVICES PROFESSIONAL Acute confusion ICD-293.0 Inactive Emily Atwood [employer] SERVICES PROFESSIONAL Headache ICD-784.0 Inactive Emily Atwood [employer] SERVICES PROFESSIONAL 09/20 Back pain ICD-724.5 Inactive Emily Atwood [employer] SERVICES PROFESSIONAL 2017 Rib pain, right sided ICD-786.50 Inactive Emily Atwood [employer] SERVICES PROFESSIONAL Myalgias ICD-729.1 Inactive Emily Atwood [employer]ICAL SERVICES PROFESSIONAL 09/20 URI ICD-465.9 Inactive Emily Atwood [employer] SERVICES PROFESSIONAL Bronchitis-Acute ICD-466.0 Inactive Desmond Diaz DO Medication List Medication Instructions Start Date Stop Date Generic Name NDC Status Provider Patient Instruction PREDNISONE 20 MG ORAL TABLET 2 po qd x 5 days PREDNISONE 27609681293 No Longer Active Renny Bella MD Active PROMETHAZINE-CODEINE 6.25-10 MG/5ML ORAL SYRUP 5ml po q6hr PRN Cough PROMETHAZINE-CODEINE 21992697480 Active Renny Bella MD Active MONTELUKAST SODIUM 10 MG ORAL TABLET 1 tab po daily for allergies MONTELUKAST SODIUM 32767603478 Active JONATHAN Moncada Active IMDUR 60 MG ORAL TABLET EXTENDED RELEASE 24 HOUR 1 po q day ISOSORBIDE MONONITRATE 64162921723 Active Emma Hernandez Active METOPROLOL SUCCINATE ER 200 MG ORAL TABLET EXTENDED RELEASE 24 HOUR take 1 tab po qday for high blood pressure and rapid pulse METOPROLOL SUCCINATE 24844155927 Active Robbie Busby MD Active [id number] 0.3 MG/24HR TRANSDERMAL PATCH WEEKLY apply 2 patches q week for HTN CLONIDINE HCL 63570001757 No Longer Active Robbie Busby MD Active IMDUR 60 MG ORAL TABLET EXTENDED RELEASE 24 HOUR take 1 tab po qday for blood pressure ISOSORBIDE MONONITRATE 90401104352 No Longer Active Robbie Busby MD Active TEMAZEPAM 15 MG ORAL CAPSULE 1 TAB PO Q HS TEMAZEPAM 44522895262 No Longer Active Robbie Busby MD Active TOPIRAMATE 50 MG ORAL TABLET 1 po BID for migraines TOPIRAMATE 55096563273 No Longer Active Robbie Busby MD Active CYCLOBENZAPRINE HCL 10 MG ORAL TABLET 1 tablet by mouth three times daily as needed for muscle spasm/pain CYCLOBENZAPRINE HCL 89423629911 No Longer Active Robbie Busby MD Active TOPROL XL 200 MG ORAL TABLET EXTENDED RELEASE 24 HOUR Take one by mouth daily METOPROLOL SUCCINATE 15200363941 No Longer Active Robbie Busby MD Active METFORMIN HCL 500 MG ORAL TABLET 1 tablet by mouth daily for diabetes type 2 METFORMIN HCL 98334911670 Active Robbie Busby MD Active SINGULAIR 10 MG ORAL TABLET 1 po qday for allergies. MONTELUKAST SODIUM 05612842422 No Longer Active Robbie Busby MD Active PREDNISONE 20 MG ORAL TABLET two tabs by mouth today, then one tab by mouth days two and three PREDNISONE 20385814261 No Longer Active Robbie Busby MD Active AZITHROMYCIN 250 MG ORAL TABLET 2 po qd x 1 day, then 1 po qd x 4 days 09/20 AZITHROMYCIN 48881509486 No Longer Active Desmond Diaz DO Active TOPIRAMATE 50 MG ORAL TABLET take 1 tab po BID for migraines. TOPIRAMATE 35576435560 No Longer Active Desmond Diaz DO Active CYCLOBENZAPRINE HCL 10 MG ORAL TABLET 1 po TID PRN muscle spasm/pain for 10 days CYCLOBENZAPRINE HCL 80033341733 No Longer Active Desmond Diaz DO Active GUAIFENESIN ER 600 MG ORAL TABLET EXTENDED RELEASE 12 HOUR 1 tab po q am 2016 GUAIFENESIN 51564438412 No Longer Active Robbie Busby MD Active DIVALPROEX SODIUM ER 500 MG ORAL TABLET EXTENDED RELEASE 24 HOUR Once daily DIVALPROEX SODIUM 09413051735 Active Robbie Busby MD Active DEPO-TESTOSTERONE 200 MG/ML INTRAMUSCULAR SOLUTION 1 IM Injections every 2 weeks for low testosterone TESTOSTERONE CYPIONATE 65693101373 Active Zulema Blank LPN Active FLUTICASONE PROPIONATE 50 MCG/ACT NASAL SUSPENSION 2 sprays per nostril bid for 1 week, then 1 spray bid FLUTICASONE PROPIONATE 80836794557 Active Jillld Rodríguez APRN Active HYDRALAZINE HCL 25 MG ORAL TABLET Take 1 tab BID. HYDRALAZINE HCL 34418569503 Active Jillina Anne GONZALEZN Active VITAMIN D3 53259 UNIT ORAL TABLET 2 po weekly CHOLECALCIFEROL 91977638883 Active Robbie Busby MD Active OXYCODONE HCL ER 10 MG ORAL TABLET ER 12 HOUR ABUSE-DETERRENT 1 tab po 3 times qd. OXYCODONE HCL 45996326211 Active Robbie Busby MD Active NITROSTAT 0.4 MG SUBLINGUAL TABLET SUBLINGUAL PRN NITROGLYCERIN 62054867668 No Longer Active Robbie Busby MD Active LORATADINE 10 MG ORAL TABLET 1 tablet by mouth daily for congestion and allergies. LORATADINE 61466895434 No Longer Active Robbie Busby MD Active FLONASE 50 MCG/ACT NASAL SUSPENSION 1 spray each nostril twice daily for allergies and runny nose FLUTICASONE PROPIONATE 05859047530 No Longer Active Robbie Busby MD Active FIORICET 50-300-40 MG ORAL CAPSULE take 1 tab po qday prn migraines. [id number]-[id number] 01597376631 No Longer Active Robbie Busby MD Active VITAMIN D3 87967 UNIT ORAL CAPSULE 2 CAPS PO WEEKLY CHOLECALCIFEROL 12566930697 No Longer Active Robbie Busby MD Active CYCLOBENZAPRINE HCL 10 MG ORAL TABLET 1 tablet by mouth three times daily as needed for muscle spasm/pain for 10 days CYCLOBENZAPRINE HCL 34297480920 No Longer Active Robbie Busby MD Active PREDNISONE 20 MG ORAL TABLET take 3 tabs daily for 3 days, 2 tabs daily for 3 days, 1 tab daily for 3 days, 1/2 tab daily for 4 days PREDNISONE 97783183259 No Longer Active Erin Arezane GONZALEZN Active CLONIDINE HCL 0.2 MG ORAL TABLET 1 TAB BY MOUTH EVERY 8 HOURS CLONIDINE HCL 59099991850 No Longer Active Erin Arell BREAK OUT MAN Active MECLIZINE HCL 25 MG ORAL TABLET one 4 times a day as needed for dizziness MECLIZINE HCL 15827617218 No Longer Active Erin Arell BREAK OUT MAN Active SPIRONOLACTONE 25 MG ORAL TABLET 4 tablets by mouth daily SPIRONOLACTONE 32193114757 No Longer Active Erin Arell BREAK OUT MAN Active LEVAQUIN 500 MG ORAL TABLET 1 tablet by mouth daily for 7 days LEVOFLOXACIN 26321502605 No Longer Active Erin Arell BREAK OUT MAN Active BACTRIM DS 800-160 MG ORAL TABLET 1 tab by mouth twice daily 2015 TRIMETHOPRIM-SULFAMETHOXAZOLE 69979083020 No Longer Active Robbie Busby MD Active HYDRALAZINE HCL 50 MG ORAL TABLET TWO BY MOUTH THREE TIMES DAILY HYDRALAZINE HCL 77355302635 No Longer Active Rober Rodríguez APRN Active HYDROCODONE-ACETAMINOPHEN 5-325 MG ORAL TABLET 1 tab by mouth BID prn back pain HYDROCODONE-ACETAMINOPHEN 83276255826 No Longer Active Rober Rodríguez APRN Active HYDROCHLOROTHIAZIDE TABLET Take one by mouth daily HYDROCHLOROTHIAZIDE TABS 05330094313 No Longer Active Jillina Frazell BREAK OUT MAN Active LAMISIL 125 MG ORAL PACKET 1 TAB PO DAILY TERBINAFINE HCL 12141707747 No Longer Active Jillina Frazell BREAK OUT MAN Active TRILEPTAL 150 MG ORAL TABLET 1 TAB PO Q HS OXCARBAZEPINE 85702693240 No Longer Active Jillina Frazell BREAK OUT MAN Active BETADINE 10 % EXTERNAL SOLUTION wash with solution to treat follicultis 07/29 POVIDONE-IODINE 74005233538 No Longer Active Jillina Frazell BREAK OUT MAN Active NYSTATIN 484551 UNIT/ML MOUTH/THROAT SUSPENSION 5mL po QID x 10 days NYSTATIN 81126721727 No Longer Active Erin Mai APRN Active PREDNISONE 20 MG ORAL TABLET 1 tablet twice daily for 2 days, then 1 tablet once daily for 2 days PREDNISONE 15046158418 No Longer Active Robbie Busby MD Active CEFDINIR 300 MG ORAL CAPSULE Take 1 cap po bid x 10 days CEFDINIR 53562923967 No Longer Active Robbie Busby MD Active AMLODIPINE BESYLATE 10 MG ORAL TABLET 1 tablet by mouth daily AMLODIPINE BESYLATE 43409447175 Active Robbie Busby MD Active CARVEDILOL 25 MG ORAL TABLET 1 & 1/2 TAB po BID CARVEDILOL 72717140602 Active Robbie Busby MD Active NEXIUM 40 MG ORAL CAPSULE DELAYED RELEASE 1 cap by mouth daily ESOMEPRAZOLE MAGNESIUM 67936911756 Active Robbie Busby MD Active PROTONIX 40 MG INTRAVENOUS SOLUTION RECONSTITUTED 1 po qday for acid reflux PANTOPRAZOLE SODIUM 57164348540 No Longer Active Gali Raida Active KEFLEX 500 MG ORAL CAPSULE 1 po TID x 10 days CEPHALEXIN 70659292962 No Longer Active Robbie Busby MD Active ALPRAZOLAM 2 MG ORAL TABLET 1 TAB PO BID ALPRAZOLAM 28327284451 Active Robbie Busby MD Active FENOFIBRATE 145 MG ORAL TABLET Take one by mouth daily FENOFIBRATE 26117310093 No Longer Active Robbie Busby MD Active SPIRONOLACTONE 50 MG ORAL TABLET 1 tablet by mouth twice a day SPIRONOLACTONE 70566167850 No Longer Active Robbie Busby MD Active HYDRALAZINE HCL 25 MG ORAL TABLET 1 tablet by mouth tid for hypertension 2013 HYDRALAZINE HCL 95365542693 No Longer Active Robbie Busby MD Active VIIBRYD 40 MG ORAL TABLET take 1 tab po qday for depression. 2014 VILAZODONE HCL 32398129655 No Longer Active Robbie Busby MD Active TERBINAFINE HCL 250 MG ORAL TABLET 1 tab po qday for foot infection TERBINAFINE HCL 40242744903 No Longer Active Robbie Busby MD Active GABAPENTIN 300 MG ORAL CAPSULE 1 po q hs for nerve pain GABAPENTIN 18566081222 Active Robbie Busby MD Active CHERATUSSIN AC 100-10 MG/5ML ORAL SOLUTION 7.5 mL PO q 4-6 hrs PRN cough 2014 GUAIFENESIN-CODEINE 25109207575 No Longer Active Robbie Busby MD Active AZITHROMYCIN 250 MG ORAL TABLET 2 tablets PO today---then, 1 tablet PO daily x 4 more days (and 1 optional refill) AZITHROMYCIN 75280163038 No Longer Active Robbie Busby MD Active NORVASC 10 MG ORAL TABLET 1 tablet by mouth daily AMLODIPINE BESYLATE 85295118025 No Longer Active Alex ALVAREZ Active ISOSORBIDE DINITRATE 30 MG ORAL TABLET Take one by mouth daily ISOSORBIDE DINITRATE 25030567374 No Longer Active Robbie Busby MD Active VIIBRYD 40 MG ORAL TABLET 1 TA B PO DAILY VILAZODONE HCL 66414012189 Active Robbie Busby MD Active ZITHROMAX 250 MG ORAL TABLET 2 po today, then 1 po q days 2-5 AZITHROMYCIN 86155520014 No Longer Active Robbie Busby MD Active DOXAZOSIN MESYLATE 4 MG ORAL TABLET Take one by mouth daily DOXAZOSIN MESYLATE 81255674190 Active Robbie Busby MD Active VENLAFAXINE HCL ER 150 MG ORAL TABLET EXTENDED RELEASE 24 HOUR Take one by mouth daily VENLAFAXINE HCL 65210525680 Active Robbie Busby MD Active LIPITOR 40 MG ORAL TABLET Take one by mouth daily ATORVASTATIN CALCIUM 58023561955 Active Robbie Busby MD Active ISOSORBIDE DINITRATE 30 MG ORAL TABLET Take one by mouth daily ISOSORBIDE DINITRATE 30 MG ORAL TABLET 291670 ISOSORBIDE DINITRATE Inactive NORVASC 10 MG ORAL TABLET 1 tablet by mouth daily NORVASC 10 MG ORAL TABLET 275429 AMLODIPINE BESYLATE Inactive AZITHROMYCIN 250 MG ORAL TABLET 2 tablets PO today---then, 1 tablet PO daily x 4 more days (and 1 optional refill) AZITHROMYCIN 250 MG ORAL TABLET 630998 AZITHROMYCIN Inactive CHERATUSSIN AC 100-10 MG/5ML ORAL SOLUTION 7.5 mL PO q 4-6 hrs PRN cough 2014 CHERATUSSIN AC 100-10 MG/5ML ORAL SOLUTION 733927 GUAIFENESIN-CODEINE Inactive VIIBRYD 40 MG ORAL TABLET take 1 tab po qday for depression. 2014 VIIBRYD 40 MG ORAL TABLET VILAZODONE HCL Inactive HYDRALAZINE HCL 25 MG ORAL TABLET 1 tablet by mouth tid for hypertension 2013 HYDRALAZINE HCL 25 MG ORAL TABLET 994075 HYDRALAZINE HCL Inactive SPIRONOLACTONE 50 MG ORAL TABLET 1 tablet by mouth twice a day SPIRONOLACTONE 50 MG ORAL TABLET 855910 SPIRONOLACTONE Inactive FENOFIBRATE 145 MG ORAL TABLET Take one by mouth daily FENOFIBRATE 145 MG ORAL TABLET 953998 FENOFIBRATE Inactive PROTONIX 40 MG INTRAVENOUS SOLUTION RECONSTITUTED 1 po qday for acid reflux PROTONIX 40 MG INTRAVENOUS SOLUTION RECONSTITUTED 657910 PANTOPRAZOLE SODIUM Inactive CEFDINIR 300 MG ORAL CAPSULE Take 1 cap po bid x 10 days CEFDINIR 300 MG ORAL CAPSULE 184485 CEFDINIR Inactive PREDNISONE 20 MG ORAL TABLET 1 tablet twice daily for 2 days, then 1 tablet once daily for 2 days PREDNISONE 20 MG ORAL TABLET 741473 PREDNISONE Inactive NYSTATIN 554382 UNIT/ML MOUTH/THROAT SUSPENSION 5mL po QID x 10 days NYSTATIN 390427 UNIT/ML MOUTH/THROAT SUSPENSION 523959 NYSTATIN Inactive BETADINE 10 % EXTERNAL SOLUTION wash with solution to treat follicultis 07/29 BETADINE 10 % EXTERNAL SOLUTION 0292969 POVIDONE-IODINE Inactive TRILEPTAL 150 MG ORAL TABLET 1 TAB PO Q HS TRILEPTAL 150 MG ORAL TABLET 654847 OXCARBAZEPINE Inactive LAMISIL 125 MG ORAL PACKET 1 TAB PO DAILY LAMISIL 125 MG ORAL PACKET TERBINAFINE HCL Inactive HYDROCHLOROTHIAZIDE TABLET Take one by mouth daily HYDROCHLOROTHIAZIDE TABLET HYDROCHLOROTHIAZIDE TABS Inactive HYDROCODONE-ACETAMINOPHEN 5-325 MG ORAL TABLET 1 tab by mouth BID prn back pain HYDROCODONE-ACETAMINOPHEN 5-325 MG ORAL TABLET 195264 HYDROCODONE-ACETAMINOPHEN Inactive HYDRALAZINE HCL 50 MG ORAL TABLET TWO BY MOUTH THREE TIMES DAILY HYDRALAZINE HCL 50 MG ORAL TABLET 022038 HYDRALAZINE HCL Inactive LEVAQUIN 500 MG ORAL TABLET 1 tablet by mouth daily for 7 days LEVAQUIN 500 MG ORAL TABLET 414483 LEVOFLOXACIN Inactive SPIRONOLACTONE 25 MG ORAL TABLET 4 tablets by mouth daily SPIRONOLACTONE 25 MG ORAL TABLET 018421 SPIRONOLACTONE Inactive MECLIZINE HCL 25 MG ORAL TABLET one 4 times a day as needed for dizziness MECLIZINE HCL 25 MG ORAL TABLET 222809 MECLIZINE HCL Inactive CLONIDINE HCL 0.2 MG ORAL TABLET 1 TAB BY MOUTH EVERY 8 HOURS CLONIDINE HCL 0.2 MG ORAL TABLET 114041 CLONIDINE HCL Inactive CYCLOBENZAPRINE HCL 10 MG ORAL TABLET 1 tablet by mouth three times daily as needed for muscle spasm/pain for 10 days CYCLOBENZAPRINE HCL 10 MG ORAL TABLET 501665 CYCLOBENZAPRINE HCL Inactive VITAMIN D3 04322 UNIT ORAL CAPSULE 2 CAPS PO WEEKLY VITAMIN D3 41838 UNIT ORAL CAPSULE CHOLECALCIFEROL Inactive FIORICET 50-300-40 MG ORAL CAPSULE take 1 tab po qday prn migraines. FIORICET 50-300-40 MG ORAL CAPSULE 463801 BUTALBITAL-APAP- CAFFEINE Inactive FLONASE 50 MCG/ACT NASAL SUSPENSION 1 spray each nostril twice daily for allergies and runny nose FLONASE 50 MCG/ACT NASAL SUSPENSION 4815766 FLUTICASONE PROPIONATE Inactive LORATADINE 10 MG ORAL TABLET 1 tablet by mouth daily for congestion and allergies. LORATADINE 10 MG ORAL TABLET 647206 LORATADINE Inactive NITROSTAT 0.4 MG SUBLINGUAL TABLET SUBLINGUAL PRN NITROSTAT 0.4 MG SUBLINGUAL TABLET SUBLINGUAL 674446 NITROGLYCERIN Inactive GUAIFENESIN ER 600 MG ORAL TABLET EXTENDED RELEASE 12 HOUR 1 tab po q am 2016 GUAIFENESIN ER 600 MG ORAL TABLET EXTENDED RELEASE 12 HOUR GUAIFENESIN Inactive CYCLOBENZAPRINE HCL 10 MG ORAL TABLET 1 po TID PRN muscle spasm/pain for 10 days CYCLOBENZAPRINE HCL 10 MG ORAL TABLET 801460 CYCLOBENZAPRINE HCL Inactive TOPIRAMATE 50 MG ORAL TABLET take 1 tab po BID for migraines. TOPIRAMATE 50 MG ORAL TABLET 126473 TOPIRAMATE Inactive PREDNISONE 20 MG ORAL TABLET two tabs by mouth today, then one tab by mouth days two and three PREDNISONE 20 MG ORAL TABLET 874615 PREDNISONE Inactive TOPROL XL 200 MG ORAL TABLET EXTENDED RELEASE 24 HOUR Take one by mouth daily TOPROL XL 200 MG ORAL TABLET EXTENDED RELEASE 24 HOUR METOPROLOL SUCCINATE Inactive CYCLOBENZAPRINE HCL 10 MG ORAL TABLET 1 tablet by mouth three times daily as needed for muscle spasm/pain CYCLOBENZAPRINE HCL 10 MG ORAL TABLET 592384 CYCLOBENZAPRINE HCL Inactive TOPIRAMATE 50 MG ORAL TABLET 1 po BID for migraines TOPIRAMATE 50 MG ORAL TABLET 148368 TOPIRAMATE Inactive TEMAZEPAM 15 MG ORAL CAPSULE 1 TAB PO Q HS TEMAZEPAM 15 MG ORAL CAPSULE 227930 TEMAZEPAM Inactive IMDUR 60 MG ORAL TABLET EXTENDED RELEASE 24 HOUR take 1 tab po qday for blood pressure IMDUR 60 MG ORAL TABLET EXTENDED RELEASE 24 HOUR ISOSORBIDE MONONITRATE Inactive [id number] 0.3 MG/24HR TRANSDERMAL PATCH WEEKLY apply 2 patches q week for HTN [id number] 0.3 MG/24HR TRANSDERMAL PATCH WEEKLY 616482 CLONIDINE HCL Inactive ZITHROMAX 250 MG ORAL TABLET 2 po today, then 1 po q days 2-5 ZITHROMAX 250 MG ORAL TABLET 027371 AZITHROMYCIN Inactive TERBINAFINE HCL 250 MG ORAL TABLET 1 tab po qday for foot infection TERBINAFINE HCL 250 MG ORAL TABLET 947361 TERBINAFINE HCL Inactive KEFLEX 500 MG ORAL CAPSULE 1 po TID x 10 days KEFLEX 500 MG ORAL CAPSULE 070719 CEPHALEXIN Inactive BACTRIM DS 800-160 MG ORAL TABLET 1 tab by mouth twice daily 2015 BACTRIM DS 800-160 MG ORAL TABLET 786842 TRIMETHOPRIM- SULFAMETHOXAZOLE Inactive PREDNISONE 20 MG ORAL TABLET take 3 tabs daily for 3 days, 2 tabs daily for 3 days, 1 tab daily for 3 days, 1/2 tab daily for 4 days PREDNISONE 20 MG ORAL TABLET 042494 PREDNISONE Inactive AZITHROMYCIN 250 MG ORAL TABLET 2 po qd x 1 day, then 1 po qd x 4 days 09/20 AZITHROMYCIN 250 MG ORAL TABLET 645220 AZITHROMYCIN Inactive SINGULAIR 10 MG ORAL TABLET 1 po qday for allergies. SINGULAIR 10 MG ORAL TABLET 734081 MONTELUKAST SODIUM Inactive PREDNISONE 20 MG ORAL TABLET 2 po qd x 5 days PREDNISONE 20 MG ORAL TABLET 777541 PREDNISONE Inactive Advance Directives Directive Description Start [...] AUTO - Chemistry sodium, serum 142 mmol/L 911-174 5714/07/17 carbon dioxide, venous blood 28.2 mmol/L 21.0-32.0 [...] Panel - Chemistry sodium, serum 141 mmol/L 733-326 6849/02/13 carbon dioxide, venous blood 23.9 mmol/L 21.0-32.0 [...] 6.9 % 4.3-6.0 sodium, serum 139 mmol/L 359-890 6864/01/04 potassium, serum 3.9 mmol/L 3.5-5.2 chloride, serum [...] 1.80 ng/mL 0.00-4.00 Lab Report: VITAMIN D, 25-HYDROXY/26080 - Chemistry vitamin D 25-hydroxy, serum 25 ng/mL 30-100 Encounters Code Encounter Date Provider Facility CPT-66881 Level 3 Est. Patient 13:59:07 CDT Renny Bella MD [facility] CPT-19341 Level 3 Est. Patient 16:04:17 CDT Robbie Busby MD [facility]-77316 Level 4 Est. Patient 09:50:01 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 Robbie Busby MD [facility] CPT-55423 Level 4 Est. Patient 09:42:08 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 Robbie Busby MD [facility]-15706 Level 4 Est. Patient 13:07:39 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 Robbie Busby MD [facility]-46043 Level 4 Est. Patient 15:23:44 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 Desmond Diaz DO [facility] CPT-02540 Level 3 Est. Patient 15:40:49 CDT Robbie Busby MD [facility]-58524 Level 4 Est. Patient 15:18:19 CDT Robbie Busby MD [facility]-35469 Level 3 Est. Patient 09:00:37 CDT Rober Rodríguez [facility]-29159 Level 3 Est. Patient 16:07:10 CDT Robbie Busby MD [facility]-47488 Level 4 Est. Patient 11:56:16 CDT Erin Mai [facility] CPT-95565 Level 3 Est. Patient 17:48:02 CDT Robbie Busby MD [facility]-28094 Level 4 Est. Patient 12:00:49 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 Rober Rodríguez [facility] CPT-64170 Level 3 Est. Patient 09:16:37 CDT Robbie Busby MD [facility]-47093 Level 3 Est. Patient 19:38:43 CDT Robbie Busby MD [facility]-62389 Level 3 Est. Patient 11:53:38 CDT Robbie Busby MD [facility] CPT-14879 Level 4 Est. Patient 12:52:22 CDT Rober Reynoldsneha ARGUELLO [facility] CPT-89708 Level 4 Est. Patient 22:55:17 CDT Robbie Busby MD [facility]-58624 Level 3 Est. Patient 12:38:24 CDT Desmond Diaz DO [facility] CPT-01663 Level 4 Est. Patient 11:25:03 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 Robbie Busby MD [facility] CPT-96594 Level 4 Est. Patient 14:50:10 CDT Robbie Busby MD [facility] CPT-57743 Level 4 Est. Patient 23:30:43 CDT Robbie Busby MD [facility] CPT-42499 Level 4 Est. Patient 10:30:43 CDT Robbie Busby MD [facility] CPT-67815 Level 3 Est. Patient 17:08:12 CDT Alex Shaw [facility] CPT-60020 Level 4 Est. Patient 17:51:38 CDT Robbie Busby MD [facility] CPT-97389 Level 4 Est. Patient 14:00:21 CDT Robbie Busby MD [facility] CPT-70020 Level 4 Est. Patient 12:46:48 CDT Robbie Busby MD [facility] CPT-75642 Level 4 Est. Patient 13:34:33 CDT Robbie Busby MD [facility] CPT-85352 Level 4 Est. Patient 16:58:28 CDT Robbie Busby MD [facility] CPT-77140 Level 3 Est. Patient 19:36:53 CDT Alex Shaw [facility] CPT-46611 Level 3 Est. Patient 12:58:15 CDT Robbie Busby MD [facility] Procedures Code Procedure Name Date Entry Date Standard Description CPT-J1071 Depo Testosterone 200mg 09:01:06 CDT CPT-12259 Abx/Therapy Injection 09:01:06 CDT CPT-J1100 Decadron 8mg (Dexamethasone) 16:04:17 CDT CPT-J1040 Depo Medrol 80 mg (Methyl Prednisolone Acetate) 16:04: 17 CDT CPT-J1071 Depo Testosterone 200mg 08:56:46 CDT CPT-64464 Abx/Therapy Injection 08:56:45 CDT CPT-J1071 Depo Testosterone 200mg 08:26:27 CDT CPT-07132 Abx/Therapy Injection 08:26:27 CDT CPT-J1071 Depo Testosterone 200mg 10:27:10 CDT CPT-10229 Abx/Therapy Injection 10:27:10 CDT CPT-J1071 Depo Testosterone 200mg 16:10:29 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 CPT-15985 Abx/Therapy Injection 16:10:29 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 CPT-J1071 Depo Testosterone 200mg 16:13:47 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 CPT-65668 Abx/Therapy Injection 16:13:46 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 CPT-J1071 Depo Testosterone 200mg 15:33:58 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 CPT-72722 Abx/Therapy Injection 15:33:58 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 CPT-J1071 Depo Testosterone 200mg 09:38:36 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 CPT-74821 Abx/Therapy Injection 09:38:36 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 CPT-J1071 Depo Testosterone 200mg 10:22:56 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 CPT-40704 Abx/Therapy Injection 10:22:56 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 CPT-J1071 Depo Testosterone 200mg 15:40:23 CDT CPT-45376 Abx/Therapy Injection 15:40:23 CDT CPT-J1071 Depo Testosterone 200mg 14:20:43 CDT CPT-81435 Abx/Therapy Injection 14:20:43 CDT CPT-J1071 Depo Testosterone 200mg 14:17:22 CDT CPT-74581 Abx/Therapy Injection 14:17:22 CDT CPT-J1071 Depo Testosterone 200mg 09:03:53 CDT CPT-37167 Abx/Therapy Injection 09:03:53 CDT CPT-G0439 [facility] Annual Wellness Exam 16:47:44 CDT CPT-J1071 Depo Testosterone 200mg 09:06:28 CDT CPT-02924 Abx/Therapy Injection 09:06:28 CDT CPT-J1071 Depo Testosterone 200mg 08:30:01 CDT CPT-60005 Abx/Therapy Injection 08:30:01 CDT CPT-J1071 Depo Testosterone 200mg 08:24:00 CDT CPT-34297 Abx/Therapy Injection 08:24:00 CDT CPT-15896 Venipuncture Draw Fee 14:39:06 CDT CPT-80007 Ribs unilateral 2V - XRAY USE ONLY 12:10:11 CDT CPT-38232 First Vx - Ix admin for Medicare patients 16:32:53 CDT CPT-13723 Boostrix Intramuscular Suspension 5-2.5-18.5 16:32:53 CDT CPT-05306 TB Skin Test 11:42:28 CDT CPT-09232 Tdap 7yrs or > 11:42:28 CDT CPT-J0696 Rocephin 1000 mg (Ceftriaxone) 17:43:43 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 CPT-J1040 Depo Medrol 80 mg (Methyl Prednisolone Acetate) 17:43: 43 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 CPT-J1100 Decadron 8mg (Dexamethasone) 17:43:42 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 CPT-04488 Abx/Therapy Injection 17:43:42 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 CPT-38922 Abx/Therapy Injection 17:43:42 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 CPT-J1040 Depo Medrol 80 mg (Methyl Prednisolone Acetate) 09:43: 34 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 CPT-J1100 Decadron 8mg (Dexamethasone) 09:43:34 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 CPT-J0696 Rocephin 1gm Inj Solr 09:43:34 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 CPT-96353 Wound Culture - LAB USE ONLY 14:00:21 CDT CPT-I/D I/D Abscess 09:16:37 CDT CPT-20757 Venipuncture Draw Fee 15:20:23 CDT CPT-15250 Microalbumin - LAB USE ONLY 16:02:19 CDT CPT-55069 CBC - LAB USE ONLY 16:02:19 CDT CPT-13541 Venipuncture Draw Fee 16:02:19 CDT CPT-G0438 Initial Annual Wellness Exam 08:10:28 CDT CPT-78567 Venipuncture Draw Fee 13:07:17 CDT CPT-G0008 Administration of Influenza Virus Vaccine 16:09:59 CDT CPT-73131 Fluzone Quadrivalent Intramuscular Suspension 0.5 ML 16: 09:59 CDT CPT-36570 Spec Collection and Handling Fee 15:05:50 CDT
--- OUTSIDE RECORDS SUMMARY | 2018-04-18 14:13 | XMS REPORT | Clinical Summary ---
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 Rober Rodríguez [employer] Other malignant secondary hypertension Tachycardia 785.0 Active [...] 2 weeks for low testosterone TESTOSTERONE CYPIONATE 09079050918 Active Zulema Blank LPN Active CYCLOBENZAPRINE HCL 10 MG ORAL TABS 1 po TID PRN muscle spasm/pain for 10 days CYCLOBENZAPRINE HCL 43005996887 Active JONATHAN Moncada Active GUAIFENESIN 600 MG [id number] 1 tab po q am GUAIFENESIN 60724675664 Active Jillina Anne GONZALEZN Active FLUTICASONE PROPIONATE 50 MCG/ACT SUSP 2 sprays per nostril bid for 1 week, then 1 spray bid FLUTICASONE PROPIONATE 99356411292 Active Jillina Anne GONZALEZN Active HYDRALAZINE HCL 25 MG ORAL TABS Take 1 tab BID. HYDRALAZINE HCL 58765395582 Active Jillina Anne GONZALEZN Active VITAMIN D3 09619 UNIT ORAL TABS 2 po weekly CHOLECALCIFEROL 42653645425 Active Robbie Busby MD Active OXYCODONE HCL ER 10 MG ORAL T12A 1 tab po 3 times qd. OXYCODONE HCL 52907602136 Active Robbie Busby MD Active NITROSTAT 0.4 MG SUBL PRN NITROGLYCERIN 82993270560 No Longer Active Robbie Busby MD Active LORATADINE 10 MG TABS 1 tablet by mouth daily for congestion and allergies. LORATADINE 86022072675 No Longer Active Robbie Busby MD Active FLONASE 50 MCG/ACT SUSP 1 spray each nostril twice daily for allergies and runny nose FLUTICASONE PROPIONATE 35722100371 No Longer Active Robbie Busby MD Active FIORICET 50-300-40 MG ORAL CAPS take 1 tab po qday prn migraines. [id number] 31683453469 No Longer Active Robbie Busby MD Active VITAMIN D3 32522 UNIT CAPS 2 CAPS PO WEEKLY CHOLECALCIFEROL 63564933488 No Longer Active Robbie Busby MD Active CYCLOBENZAPRINE HCL 10 MG TABS 1 tablet by mouth three times daily as needed for muscle spasm/pain for 10 days CYCLOBENZAPRINE HCL 45934081653 No Longer Active Robbie Busby MD Active PREDNISONE 20 MG TAB take 3 tabs daily for 3 days, 2 tabs daily for 3 days, 1 tab daily for 3 days, 1/2 tab daily for 4 days PREDNISONE 03657372455 No Longer Active Erin Garsia APRN Active CLONIDINE HCL 0.2 MG ORAL TABS 1 TAB BY MOUTH EVERY 8 HOURS 12/29 CLONIDINE HCL 44725532990 No Longer Active Erin Garsia APRN Active MECLIZINE HCL 25 MG TAB one 4 times a day as needed for dizziness MECLIZINE HCL 37058745327 No Longer Active Erin Garsia APRN Active SPIRONOLACTONE 25 MG TAB 4 tablets by mouth daily SPIRONOLACTONE 37602666015 No Longer Active Erin Garsia APRN Active LEVAQUIN 500 MG TAB 1 tablet by mouth daily for 7 days LEVOFLOXACIN 09490807586 No Longer Active Erin Garsia APRN Active BACTRIM DS 800-160 MG TAB 1 tab by mouth twice daily TRIMETHOPRIM-SULFAMETHOXAZOLE 83631434236 No Longer Active Robbie Busby MD Active HYDRALAZINE HCL 50 MG ORAL TABS TWO BY MOUTH THREE TIMES DAILY HYDRALAZINE HCL 56333322758 No Longer Active Andrellina Anne GONZALEZN Active HYDROCODONE-ACETAMINOPHEN 5-325 MG TABS 1 tab by mouth BID prn back pain 2013 HYDROCODONE-ACETAMINOPHEN 99034627939 No Longer Active Jillina Frazell [employer] Active HYDROCHLOROTHIAZIDE TABS Take one by mouth daily HYDROCHLOROTHIAZIDE TABS 82909481063 No Longer Active Jillina Frazell [employer] Active LAMISIL 125 MG ORAL PACK 1 TAB PO DAILY TERBINAFINE HCL 53688560897 No Longer Active Jillina Frazell [employer] Active TRILEPTAL 150 MG ORAL TABS 1 TAB PO Q HS OXCARBAZEPINE 52916808181 No Longer Active Jillina Frazell [employer] Active BETADINE 10 % EXT SOLN wash with solution to treat follicultis POVIDONE-IODINE 69763918777 No Longer Active Jillina Frazell [employer] Active NYSTATIN 752421 UNIT/ML M/T SUSP 5mL po QID x 10 days NYSTATIN 45575380756 No Longer Active Erin Garsia APRN Active PREDNISONE 20 MG TAB 1 tablet twice daily for 2 days, then 1 tablet once daily for 2 days PREDNISONE 91460022254 No Longer Active Robbie Busby MD Active CEFDINIR 300 MG ORAL CAPS Take 1 cap po bid x 10 days CEFDINIR 71677703516 No Longer Active Robbie Busby MD Active AMLODIPINE BESYLATE 10 MG TABS 1 tablet by mouth daily AMLODIPINE BESYLATE 66292437605 Active Robbie Busby MD Active CARVEDILOL 25 MG TABS 1 & 1/2 TAB po BID CARVEDILOL 45946464461 Active Robbie Busby MD Active NEXIUM 40 MG CPDR 1 cap by mouth daily ESOMEPRAZOLE MAGNESIUM 07915122635 Active Robbie Busby MD Active PROTONIX 40 MG SOLR 1 po qday for acid reflux PANTOPRAZOLE SODIUM 99263469716 No Longer Active Gali Raida Active KEFLEX 500 MG CAP 1 po TID x 10 days CEPHALEXIN 24882242110 No Longer Active Robbie Busby MD Active TOPIRAMATE 50 MG ORAL TABS take 1 tab po BID for migraines. TOPIRAMATE 67170121629 Active Robbie Busby MD Active TEMAZEPAM 15 MG ORAL CAPS 1 TAB PO Q HS TEMAZEPAM 71027161019 Active Robbie Busby MD Active ALPRAZOLAM 2 MG ORAL TABS 1 TAB PO BID ALPRAZOLAM 57289396619 Active Robbie Busby MD Active FENOFIBRATE 145 MG TABS Take one by mouth daily FENOFIBRATE 76457480990 No Longer Active Robbie Busby MD Active SPIRONOLACTONE 50 MG TABS 1 tablet by mouth twice a day SPIRONOLACTONE 20753858830 No Longer Active Robbie Busby MD Active HYDRALAZINE HCL 25 MG TABS 1 tablet by mouth tid for hypertension HYDRALAZINE HCL 76283494480 No Longer Active Robbie Busby MD Active VIIBRYD 40 MG TABS take 1 tab po qday for depression. VILAZODONE HCL 87950256532 No Longer Active Robbie Busby MD Active TERBINAFINE HCL 250 MG TABS 1 tab po qday for foot infection 2014 TERBINAFINE HCL 11003390600 No Longer Active Robbie Busby MD Active GABAPENTIN 300 MG CAPS 1 po q hs for nerve pain GABAPENTIN 59067009792 Active Robbie Busby MD Active CHERATUSSIN AC 100-10 MG/5ML ORAL SOLN 7.5 mL PO q 4-6 hrs PRN cough GUAIFENESIN-CODEINE 89132171904 No Longer Active Robbie Busby MD Active AZITHROMYCIN 250 MG ORAL TABS 2 tablets PO today---then, 1 tablet PO daily x 4 more days (and 1 optional refill) AZITHROMYCIN 77716367392 No Longer Active Robbie Busby MD Active NORVASC 10 MG TAB 1 tablet by mouth daily AMLODIPINE BESYLATE 90638715819 No Longer Active Alex ALVAREZ Active IMDUR 60 MG TAB CR take 1 tab po qday for blood pressure ISOSORBIDE MONONITRATE Active Robbie Busby MD Active ISOSORBIDE DINITRATE 30 MG TABS Take one by mouth daily ISOSORBIDE DINITRATE 88748826834 No Longer Active Robbie Busby MD Active VIIBRYD 40 MG TABS 1 TA B PO DAILY VILAZODONE HCL 39833638677 Active Robbie Busby MD Active ZITHROMAX 250 MG TAB 2 po today, then 1 po q days 2-5 AZITHROMYCIN 21214747135 No Longer Active Robbie Busby MD Active UNAISVQU-[id number]-6 0.3 MG/24HR PTWK apply 2 patches q week for HTN CLONIDINE HCL 16678339683 Active Robbie Busby MD Active DOXAZOSIN MESYLATE 4 MG TABS Take one by mouth daily DOXAZOSIN MESYLATE 49602501247 Active Robbie Busby MD Active TOPROL XL 200 MG [id number]-ULQ Take one by mouth daily METOPROLOL SUCCINATE 02725392568 Active Robbie Busby MD Active VENLAFAXINE HCL ER 150 MG [id number]-[id number] Take one by mouth daily VENLAFAXINE HCL 33306286428 Active Robbie Busby MD Active LIPITOR 40 MG TABS Take one by mouth daily ATORVASTATIN CALCIUM 01242831365 Active Robbie Busby MD Active ISOSORBIDE DINITRATE 30 MG TABS Take one by mouth daily ISOSORBIDE DINITRATE 30 MG TABS 307938 ISOSORBIDE DINITRATE Inactive NORVASC 10 MG TAB 1 tablet by mouth daily NORVASC 10 MG TAB 512911 AMLODIPINE BESYLATE Inactive AZITHROMYCIN 250 MG ORAL TABS 2 tablets PO today---then, 1 tablet PO daily x 4 more days (and 1 optional refill) AZITHROMYCIN 250 MG ORAL TABS 7673034 AZITHROMYCIN Inactive CHERATUSSIN AC 100-10 MG/5ML ORAL SOLN 7.5 mL PO q 4-6 hrs PRN cough CHERATUSSIN AC 100-10 MG/5ML ORAL SOLN 641679 GUAIFENESIN- CODEINE Inactive VIIBRYD 40 MG TABS take 1 tab po qday for depression. VIIBRYD 40 MG TABS VILAZODONE HCL Inactive HYDRALAZINE HCL 25 MG TABS 1 tablet by mouth tid for hypertension HYDRALAZINE HCL 25 MG TABS 701656 HYDRALAZINE HCL Inactive SPIRONOLACTONE 50 MG TABS 1 tablet by mouth twice a day SPIRONOLACTONE 50 MG TABS 777254 SPIRONOLACTONE Inactive FENOFIBRATE 145 MG TABS Take one by mouth daily FENOFIBRATE 145 MG TABS 206870 FENOFIBRATE Inactive PROTONIX 40 MG SOLR 1 po qday for acid reflux PROTONIX 40 MG SOLR 077417 PANTOPRAZOLE SODIUM Inactive CEFDINIR 300 MG ORAL CAPS Take 1 cap po bid x 10 days CEFDINIR 300 MG ORAL CAPS 969064 CEFDINIR Inactive PREDNISONE 20 MG TAB 1 tablet twice daily for 2 days, then 1 tablet once daily for 2 days PREDNISONE 20 MG TAB 672104 PREDNISONE Inactive NYSTATIN 424779 UNIT/ML M/T SUSP 5mL po QID x 10 days NYSTATIN 407880 UNIT/ML M/T SUSP 593928 NYSTATIN Inactive BETADINE 10 % EXT SOLN wash with solution to treat follicultis BETADINE 10 % EXT SOLN 3705111 POVIDONE-IODINE Inactive TRILEPTAL 150 MG ORAL TABS 1 TAB PO Q HS TRILEPTAL 150 MG ORAL TABS 721426 OXCARBAZEPINE Inactive LAMISIL 125 MG ORAL PACK 1 TAB PO DAILY LAMISIL 125 MG ORAL PACK TERBINAFINE HCL Inactive HYDROCHLOROTHIAZIDE TABS Take one by mouth daily HYDROCHLOROTHIAZIDE TABS HYDROCHLOROTHIAZIDE TABS Inactive HYDROCODONE-ACETAMINOPHEN 5-325 MG TABS 1 tab by mouth BID prn back pain 2013 HYDROCODONE-ACETAMINOPHEN 5-325 MG TABS 190089 HYDROCODONE -ACETAMINOPHEN Inactive HYDRALAZINE HCL 50 MG ORAL TABS TWO BY MOUTH THREE TIMES DAILY HYDRALAZINE HCL 50 MG ORAL TABS 991182 HYDRALAZINE HCL Inactive LEVAQUIN 500 MG TAB 1 tablet by mouth daily for 7 days LEVAQUIN 500 MG TAB 277523 LEVOFLOXACIN Inactive SPIRONOLACTONE 25 MG TAB 4 tablets by mouth daily SPIRONOLACTONE 25 MG TAB 057058 SPIRONOLACTONE Inactive MECLIZINE HCL 25 MG TAB one 4 times a day as needed for dizziness MECLIZINE HCL 25 MG TAB 336397 MECLIZINE HCL Inactive CLONIDINE HCL 0.2 MG ORAL TABS 1 TAB BY MOUTH EVERY 8 HOURS 12/29 CLONIDINE HCL 0.2 MG ORAL TABS 656810 CLONIDINE HCL Inactive CYCLOBENZAPRINE HCL 10 MG TABS 1 tablet by mouth three times daily as needed for muscle spasm/pain for 10 days CYCLOBENZAPRINE HCL 10 MG TABS 721949 CYCLOBENZAPRINE HCL Inactive VITAMIN D3 66844 UNIT CAPS 2 CAPS PO WEEKLY VITAMIN D3 63429 UNIT CAPS CHOLECALCIFEROL Inactive FIORICET 50-300-40 MG ORAL CAPS take 1 tab po qday prn migraines. FIORICET 50-300-40 MG ORAL CAPS 859682 [id number] Inactive FLONASE 50 MCG/ACT SUSP 1 spray each nostril twice daily for allergies and runny nose FLONASE 50 MCG/ACT SUSP 0524827 FLUTICASONE PROPIONATE Inactive LORATADINE 10 MG TABS 1 tablet by mouth daily for congestion and allergies. LORATADINE 10 MG TABS 447376 LORATADINE Inactive NITROSTAT 0.4 MG SUBL PRN NITROSTAT 0.4 MG SUBL 391226 NITROGLYCERIN Inactive ZITHROMAX 250 MG TAB 2 po today, then 1 po q days 2-5 ZITHROMAX 250 MG TAB 4778931 AZITHROMYCIN Inactive TERBINAFINE HCL 250 MG TABS 1 tab po qday for foot infection 2014 TERBINAFINE HCL 250 MG TABS 202859 TERBINAFINE HCL Inactive KEFLEX 500 MG CAP 1 po TID x 10 days KEFLEX 500 MG CAP 546114 CEPHALEXIN Inactive BACTRIM DS 800-160 MG TAB 1 tab by mouth twice daily BACTRIM DS 800-160 MG TAB 180090 TRIMETHOPRIM-SULFAMETHOXAZOLE Inactive PREDNISONE 20 MG TAB take 3 tabs daily for 3 days, 2 tabs daily for 3 days, 1 tab daily for 3 days, 1/2 tab daily for 4 days PREDNISONE 20 MG TAB 156675 PREDNISONE Inactive Advance Directives Directive Description Start [...] AUTO - Chemistry sodium, serum 142 mmol/L 352-586 4599/07/17 carbon dioxide, venous blood 28.2 mmol/L 21.0-32.0 [...] % 11.0-15.0 platelet count 185 THOUSAND/UL 10*3/mm3 186-770 9565/04/14 mean platelet volume 10.9 fL 7.5-12.5 Lab Report: LIPID PANEL, TSH/899, T4, FREE/866 - Chemistry cholesterol, serum 220 mg/dL 739-939 5797/04/14 HDL cholesterol, serum 30 mg/dL > OR=40 triglyceride, serum, fasting 466 mg/dL <150 LDL cholesterol, serum SEE NOTE mg/dL (calc) mg/dL <130 cholesterol/HDL ratio, serum 7.3 (calc) < OR=5.0 Lab Report: Prostatic Specific Ag - Chemistry prostate specific antigen 1.80 ng/mL 0.00-4.00 Lab Report: VITAMIN D, 25-HYDROXY/38283 - Chemistry vitamin D 25-hydroxy, serum 25 ng/mL 30-100 Office Visit: Confusion, dizziness after fall - Basic LDL target level 130 mg/dL Office Visit: Confusion, dizziness after fall - Chemistry HDL cholesterol, serum, target level 40 mg/dL triglyceride, target level 150 mg/dL cholesterol, target level 200 mg/dL Encounters Code Encounter Date Provider Facility CPT-46376 Level 4 Est. Patient 15:18:19 CDT Robbie Busby MD [facility] CPT-45137 Level 3 Est. Patient 09:00:37 CDT Rober Rodríguez APRN [facility] CPT-89173 Level 3 Est. Patient 16:07:10 CDT Robbie Busby MD [facility] CPT-98561 Level 4 Est. Patient 11:56:16 CDT Erin Garsia [facility] CPT-09969 Level 3 Est. Patient 17:48:02 CDT Robbie Busby MD [facility] CPT-93287 Level 4 Est. Patient 12:00:49 HYDRAULICS ENGINEER Rober Rodríguez [facility] CPT-31163 Level 3 Est. Patient 09:16:37 CDT Robbie Busby MD [facility] CPT-82075 Level 3 Est. Patient 19:38:43 CDT Robbie Busby MD [facility] CPT-84095 Level 3 Est. Patient 11:53:38 CDT Robbie Busby MD [facility] CPT-26994 Level 4 Est. Patient 12:52:22 CDT Rober Rodríguez [facility] CPT-08146 Level 4 Est. Patient 22:55:17 CDT Robbie Busby MD [facility]-16054 Level 3 Est. Patient 12:38:24 CDT Desmond Diaz DO [facility] CPT-86026 Level 4 Est. Patient 11:25:03 HYDRAULICS ENGINEER Robbie Busby MD [facility] CPT-60864 Level 4 Est. Patient 14:50:10 CDT Robbie Busby MD [facility] CPT-90486 Level 4 Est. Patient 23:30:43 CDT Robbie Busby MD [facility] CPT-11900 Level 4 Est. Patient 10:30:43 CDT Robbie Busby MD [facility] CPT-09556 Level 3 Est. Patient 17:08:12 CDT Alex ALVAREZ [facility] CPT-26278 Level 4 Est. Patient 17:51:38 CDT Robbie Busby MD [facility] CPT-83074 Level 4 Est. Patient 14:00:21 CDT Robbie Busby MD [facility] CPT-87810 Level 4 Est. Patient 12:46:48 CDT Robbie Busby MD [facility] CPT-69170 Level 4 Est. Patient 13:34:33 CDT Robbie Busby MD [facility] CPT-36324 Level 4 Est. Patient 16:58:28 CDT Robbie Busby MD [facility] CPT-86876 Level 3 Est. Patient 19:36:53 CDT Alex ALVAREZ [facility] CPT-08670 Level 3 Est. Patient 12:58:15 CDT Robbie Busby MD [facility] Procedures Code Procedure Name Date Entry Date Standard Description CPT-J1071 Depo Testosterone 200mg 09:03:53 CDT CPT-91424 Abx/Therapy Injection 09:03:53 CDT CPT-G0439 [facility] Annual Wellness Exam 16:47:44 CDT CPT-J1071 Depo Testosterone 200mg 09:06:28 CDT CPT-63189 Abx/Therapy Injection 09:06:28 CDT CPT-J1071 Depo Testosterone 200mg 08:30:01 CDT CPT-08863 Abx/Therapy Injection 08:30:01 CDT CPT-J1071 Depo Testosterone 200mg 08:24:00 CDT CPT-81433 Abx/Therapy Injection 08:24:00 CDT CPT-01090 Venipuncture Draw Fee 14:39:06 CDT CPT-80892 Ribs unilateral 2V - XRAY USE ONLY 12:10:11 CDT CPT-98478 First Vx - Ix admin for Medicare patients 16:32:53 CDT CPT-41233 Boostrix Intramuscular Suspension 5-2.5-18.5 16:32:53 CDT CPT-16993 TB Skin Test 11:42:28 CDT CPT-11922 Tdap 7yrs or > 11:42:28 CDT CPT-J0696 Rocephin 1000 mg (Ceftriaxone) 17:43:43 HYDRAULICS ENGINEER CPT-J1040 Depo Medrol 80 mg (Methyl Prednisolone Acetate) 17:43: 43 HYDRAULICS ENGINEER CPT-J1100 Decadron 8mg (Dexamethasone) 17:43:42 HYDRAULICS ENGINEER CPT-87033 Abx/Therapy Injection 17:43:42 HYDRAULICS ENGINEER CPT-74507 Abx/Therapy Injection 17:43:42 HYDRAULICS ENGINEER CPT-J1040 Depo Medrol 80 mg (Methyl Prednisolone Acetate) 09:43: 34 HYDRAULICS ENGINEER CPT-J1100 Decadron 8mg (Dexamethasone) 09:43:34 HYDRAULICS ENGINEER CPT-J0696 Rocephin 1gm Inj Solr 09:43:34 HYDRAULICS ENGINEER CPT-07656 Wound Culture - LAB USE ONLY 14:00:21 CDT CPT-I/D I/D Abscess 09:16:37 CDT CPT-14161 Venipuncture Draw Fee 15:20:23 CDT CPT-73497 Microalbumin - LAB USE ONLY 16:02:19 CDT CPT-68922 CBC - LAB USE ONLY 16:02:19 CDT CPT-36766 Venipuncture Draw Fee 16:02:19 CDT CPT-G0438 Initial Annual Wellness Exam 08:10:28 CDT CPT-42583 Venipuncture Draw Fee 13:07:17 CDT CPT-G0008 Administration of Influenza Virus Vaccine 16:09:59 CDT CPT-06429 Fluzone Quadrivalent Intramuscular Suspension 0.5 ML 16: 09:59 CDT CPT-95632 Spec Collection and Handling Fee 15:05:50 CDT
--- OUTSIDE RECORDS SUMMARY | 2018-04-18 14:18 | XMS REPORT | Clinical Summary ---
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 Rober Rodríguez [employer] Other malignant secondary hypertension Tachycardia 785.0 Active [...] 2 weeks for low testosterone TESTOSTERONE CYPIONATE 86988093006 Active Zulema Blank LPN Active CYCLOBENZAPRINE HCL 10 MG ORAL TABS 1 po TID PRN muscle spasm/pain for 10 days CYCLOBENZAPRINE HCL 37990015783 Active JONATHAN Moncada Active GUAIFENESIN 600 MG [id number] 1 tab po q am GUAIFENESIN 53657023694 Active Jillina Anne GONZALEZN Active FLUTICASONE PROPIONATE 50 MCG/ACT SUSP 2 sprays per nostril bid for 1 week, then 1 spray bid FLUTICASONE PROPIONATE 50077434856 Active Jillina Anne GONZALEZN Active HYDRALAZINE HCL 25 MG ORAL TABS Take 1 tab BID. HYDRALAZINE HCL 64480182764 Active Jillina Anne GONZALEZN Active VITAMIN D3 80551 UNIT ORAL TABS 2 po weekly CHOLECALCIFEROL 77583312871 Active Robbie Busby MD Active OXYCODONE HCL ER 10 MG ORAL T12A 1 tab po 3 times qd. OXYCODONE HCL 30934403052 Active Robbie Busby MD Active NITROSTAT 0.4 MG SUBL PRN NITROGLYCERIN 07792754093 No Longer Active Robbie Busby MD Active LORATADINE 10 MG TABS 1 tablet by mouth daily for congestion and allergies. LORATADINE 07880789568 No Longer Active Robbie Busby MD Active FLONASE 50 MCG/ACT SUSP 1 spray each nostril twice daily for allergies and runny nose FLUTICASONE PROPIONATE 22212125367 No Longer Active Robbie Busby MD Active FIORICET 50-300-40 MG ORAL CAPS take 1 tab po qday prn migraines. [id number] 42023747256 No Longer Active Robbie Busby MD Active VITAMIN D3 47950 UNIT CAPS 2 CAPS PO WEEKLY CHOLECALCIFEROL 43572549465 No Longer Active Robbie Busby MD Active CYCLOBENZAPRINE HCL 10 MG TABS 1 tablet by mouth three times daily as needed for muscle spasm/pain for 10 days CYCLOBENZAPRINE HCL 64491478781 No Longer Active Robbie Busby MD Active PREDNISONE 20 MG TAB take 3 tabs daily for 3 days, 2 tabs daily for 3 days, 1 tab daily for 3 days, 1/2 tab daily for 4 days PREDNISONE 32845079405 No Longer Active Erin Garsia APRN Active CLONIDINE HCL 0.2 MG ORAL TABS 1 TAB BY MOUTH EVERY 8 HOURS 12/29 CLONIDINE HCL 65140536880 No Longer Active Erin Garsia APRN Active MECLIZINE HCL 25 MG TAB one 4 times a day as needed for dizziness MECLIZINE HCL 53546437608 No Longer Active Erin Garsia APRN Active SPIRONOLACTONE 25 MG TAB 4 tablets by mouth daily SPIRONOLACTONE 45308849752 No Longer Active Erin Garsia APRN Active LEVAQUIN 500 MG TAB 1 tablet by mouth daily for 7 days LEVOFLOXACIN 78496746466 No Longer Active Erin Garsia APRN Active BACTRIM DS 800-160 MG TAB 1 tab by mouth twice daily TRIMETHOPRIM-SULFAMETHOXAZOLE 35064996451 No Longer Active Robbie Busby MD Active HYDRALAZINE HCL 50 MG ORAL TABS TWO BY MOUTH THREE TIMES DAILY HYDRALAZINE HCL 63061126136 No Longer Active Andrellina Anne GONZALEZN Active HYDROCODONE-ACETAMINOPHEN 5-325 MG TABS 1 tab by mouth BID prn back pain 2013 HYDROCODONE-ACETAMINOPHEN 72523559955 No Longer Active Jillina Frazell 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 HYDROCHLOROTHIAZIDE TABS Take one by mouth daily HYDROCHLOROTHIAZIDE TABS 62237095739 No Longer Active Jillina Frazell 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 LAMISIL 125 MG ORAL PACK 1 TAB PO DAILY TERBINAFINE HCL 11206916685 No Longer Active Jillina Frazell 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 TRILEPTAL 150 MG ORAL TABS 1 TAB PO Q HS OXCARBAZEPINE 27767541576 No Longer Active Jillina Frazell 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 BETADINE 10 % EXT SOLN wash with solution to treat follicultis POVIDONE-IODINE 12301707025 No Longer Active Jillina Frazell 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 NYSTATIN 776204 UNIT/ML M/T SUSP 5mL po QID x 10 days NYSTATIN 81645370997 No Longer Active Erin Garsia APRN Active PREDNISONE 20 MG TAB 1 tablet twice daily for 2 days, then 1 tablet once daily for 2 days PREDNISONE 69401332307 No Longer Active Robbie Busby MD Active CEFDINIR 300 MG ORAL CAPS Take 1 cap po bid x 10 days CEFDINIR 69180565868 No Longer Active Robbie Busby MD Active AMLODIPINE BESYLATE 10 MG TABS 1 tablet by mouth daily AMLODIPINE BESYLATE 71226949693 Active Robbie Busby MD Active CARVEDILOL 25 MG TABS 1 & 1/2 TAB po BID CARVEDILOL 15418674579 Active Robbie Busby MD Active NEXIUM 40 MG CPDR 1 cap by mouth daily ESOMEPRAZOLE MAGNESIUM 14094612314 Active Robbie Busby MD Active PROTONIX 40 MG SOLR 1 po qday for acid reflux PANTOPRAZOLE SODIUM 85656048856 No Longer Active Gali Raida Active KEFLEX 500 MG CAP 1 po TID x 10 days CEPHALEXIN 91953999668 No Longer Active Robbie Busby MD Active TOPIRAMATE 50 MG ORAL TABS take 1 tab po BID for migraines. TOPIRAMATE 81892398134 Active Robbie Busby MD Active TEMAZEPAM 15 MG ORAL CAPS 1 TAB PO Q HS TEMAZEPAM 58926997478 Active Robbie Busby MD Active ALPRAZOLAM 2 MG ORAL TABS 1 TAB PO BID ALPRAZOLAM 95774986193 Active Robbie Busby MD Active FENOFIBRATE 145 MG TABS Take one by mouth daily FENOFIBRATE 11840914251 No Longer Active Robbie Busby MD Active SPIRONOLACTONE 50 MG TABS 1 tablet by mouth twice a day SPIRONOLACTONE 72425025759 No Longer Active Robbie Busby MD Active HYDRALAZINE HCL 25 MG TABS 1 tablet by mouth tid for hypertension HYDRALAZINE HCL 62647859894 No Longer Active Robbie Busby MD Active VIIBRYD 40 MG TABS take 1 tab po qday for depression. VILAZODONE HCL 72738824007 No Longer Active Robbie Busby MD Active TERBINAFINE HCL 250 MG TABS 1 tab po qday for foot infection 2014 TERBINAFINE HCL 75116720644 No Longer Active Robbie Busby MD Active GABAPENTIN 300 MG CAPS 1 po q hs for nerve pain GABAPENTIN 90579656958 Active Robbie Busby MD Active CHERATUSSIN AC 100-10 MG/5ML ORAL SOLN 7.5 mL PO q 4-6 hrs PRN cough GUAIFENESIN-CODEINE 19072683226 No Longer Active Robbie Busby MD Active AZITHROMYCIN 250 MG ORAL TABS 2 tablets PO today---then, 1 tablet PO daily x 4 more days (and 1 optional refill) AZITHROMYCIN 47751505964 No Longer Active Robbie Busby MD Active NORVASC 10 MG TAB 1 tablet by mouth daily AMLODIPINE BESYLATE 58780954689 No Longer Active Alex ALVAREZ Active IMDUR 60 MG TAB CR take 1 tab po qday for blood pressure ISOSORBIDE MONONITRATE Active Robbie Busby MD Active ISOSORBIDE DINITRATE 30 MG TABS Take one by mouth daily ISOSORBIDE DINITRATE 92994725403 No Longer Active Robbie Busby MD Active VIIBRYD 40 MG TABS 1 TA B PO DAILY VILAZODONE HCL 30546308533 Active Robbie Busby MD Active ZITHROMAX 250 MG TAB 2 po today, then 1 po q days 2-5 AZITHROMYCIN 34187477524 No Longer Active Robbie Bsuby MD Active [id number]-SVS-3 0.3 MG/24HR PTWK apply 2 patches q week for HTN CLONIDINE HCL 95668827057 Active Robbie Busby MD Active DOXAZOSIN MESYLATE 4 MG TABS Take one by mouth daily DOXAZOSIN MESYLATE 49042332924 Active Robbie Busby MD Active TOPROL XL 200 MG RB44A-SMS Take one by mouth daily METOPROLOL SUCCINATE 77376583765 Active Robbie Busby MD Active VENLAFAXINE HCL ER 150 MG [id number]-HEE Take one by mouth daily VENLAFAXINE HCL 93330945992 Active Robbie Busby MD Active LIPITOR 40 MG TABS Take one by mouth daily ATORVASTATIN CALCIUM 05353691019 Active Robbie Busby MD Active ISOSORBIDE DINITRATE 30 MG TABS Take one by mouth daily ISOSORBIDE DINITRATE 30 MG TABS 189744 ISOSORBIDE DINITRATE Inactive NORVASC 10 MG TAB 1 tablet by mouth daily NORVASC 10 MG TAB 360501 AMLODIPINE BESYLATE Inactive AZITHROMYCIN 250 MG ORAL TABS 2 tablets PO today---then, 1 tablet PO daily x 4 more days (and 1 optional refill) AZITHROMYCIN 250 MG ORAL TABS 2211227 AZITHROMYCIN Inactive CHERATUSSIN AC 100-10 MG/5ML ORAL SOLN 7.5 mL PO q 4-6 hrs PRN cough CHERATUSSIN AC 100-10 MG/5ML ORAL SOLN 232915 GUAIFENESIN- CODEINE Inactive VIIBRYD 40 MG TABS take 1 tab po qday for depression. VIIBRYD 40 MG TABS VILAZODONE HCL Inactive HYDRALAZINE HCL 25 MG TABS 1 tablet by mouth tid for hypertension HYDRALAZINE HCL 25 MG TABS 349063 HYDRALAZINE HCL Inactive SPIRONOLACTONE 50 MG TABS 1 tablet by mouth twice a day SPIRONOLACTONE 50 MG TABS 818408 SPIRONOLACTONE Inactive FENOFIBRATE 145 MG TABS Take one by mouth daily FENOFIBRATE 145 MG TABS 490911 FENOFIBRATE Inactive PROTONIX 40 MG SOLR 1 po qday for acid reflux PROTONIX 40 MG SOLR 472595 PANTOPRAZOLE SODIUM Inactive CEFDINIR 300 MG ORAL CAPS Take 1 cap po bid x 10 days CEFDINIR 300 MG ORAL CAPS 914935 CEFDINIR Inactive PREDNISONE 20 MG TAB 1 tablet twice daily for 2 days, then 1 tablet once daily for 2 days PREDNISONE 20 MG TAB 311739 PREDNISONE Inactive NYSTATIN 955576 UNIT/ML M/T SUSP 5mL po QID x 10 days NYSTATIN 750193 UNIT/ML M/T SUSP 869564 NYSTATIN Inactive BETADINE 10 % EXT SOLN wash with solution to treat follicultis BETADINE 10 % EXT SOLN 3486802 POVIDONE-IODINE Inactive TRILEPTAL 150 MG ORAL TABS 1 TAB PO Q HS TRILEPTAL 150 MG ORAL TABS 892546 OXCARBAZEPINE Inactive LAMISIL 125 MG ORAL PACK 1 TAB PO DAILY LAMISIL 125 MG ORAL PACK TERBINAFINE HCL Inactive HYDROCHLOROTHIAZIDE TABS Take one by mouth daily HYDROCHLOROTHIAZIDE TABS HYDROCHLOROTHIAZIDE TABS Inactive HYDROCODONE-ACETAMINOPHEN 5-325 MG TABS 1 tab by mouth BID prn back pain 2013 HYDROCODONE-ACETAMINOPHEN 5-325 MG TABS 703972 HYDROCODONE -ACETAMINOPHEN Inactive HYDRALAZINE HCL 50 MG ORAL TABS TWO BY MOUTH THREE TIMES DAILY HYDRALAZINE HCL 50 MG ORAL TABS 951620 HYDRALAZINE HCL Inactive LEVAQUIN 500 MG TAB 1 tablet by mouth daily for 7 days LEVAQUIN 500 MG TAB 651978 LEVOFLOXACIN Inactive SPIRONOLACTONE 25 MG TAB 4 tablets by mouth daily SPIRONOLACTONE 25 MG TAB 400357 SPIRONOLACTONE Inactive MECLIZINE HCL 25 MG TAB one 4 times a day as needed for dizziness MECLIZINE HCL 25 MG TAB 039390 MECLIZINE HCL Inactive CLONIDINE HCL 0.2 MG ORAL TABS 1 TAB BY MOUTH EVERY 8 HOURS 12/29 CLONIDINE HCL 0.2 MG ORAL TABS 507968 CLONIDINE HCL Inactive CYCLOBENZAPRINE HCL 10 MG TABS 1 tablet by mouth three times daily as needed for muscle spasm/pain for 10 days CYCLOBENZAPRINE HCL 10 MG TABS 976363 CYCLOBENZAPRINE HCL Inactive VITAMIN D3 15224 UNIT CAPS 2 CAPS PO WEEKLY VITAMIN D3 17263 UNIT CAPS CHOLECALCIFEROL Inactive FIORICET 50-300-40 MG ORAL CAPS take 1 tab po qday prn migraines. FIORICET 50-300-40 MG ORAL CAPS 173683 [id number] Inactive FLONASE 50 MCG/ACT SUSP 1 spray each nostril twice daily for allergies and runny nose FLONASE 50 MCG/ACT SUSP 4963028 FLUTICASONE PROPIONATE Inactive LORATADINE 10 MG TABS 1 tablet by mouth daily for congestion and allergies. LORATADINE 10 MG TABS 161752 LORATADINE Inactive NITROSTAT 0.4 MG SUBL PRN NITROSTAT 0.4 MG SUBL 205735 NITROGLYCERIN Inactive ZITHROMAX 250 MG TAB 2 po today, then 1 po q days 2-5 ZITHROMAX 250 MG TAB 7899498 AZITHROMYCIN Inactive TERBINAFINE HCL 250 MG TABS 1 tab po qday for foot infection 2014 TERBINAFINE HCL 250 MG TABS 866348 TERBINAFINE HCL Inactive KEFLEX 500 MG CAP 1 po TID x 10 days KEFLEX 500 MG CAP 613333 CEPHALEXIN Inactive BACTRIM DS 800-160 MG TAB 1 tab by mouth twice daily BACTRIM DS 800-160 MG TAB 566815 TRIMETHOPRIM-SULFAMETHOXAZOLE Inactive PREDNISONE 20 MG TAB take 3 tabs daily for 3 days, 2 tabs daily for 3 days, 1 tab daily for 3 days, 1/2 tab daily for 4 days PREDNISONE 20 MG TAB 492815 PREDNISONE Inactive Advance Directives Directive Description Start [...] AUTO - Chemistry sodium, serum 142 mmol/L 810-064 9999/07/17 carbon dioxide, venous blood 28.2 mmol/L 21.0-32.0 [...] % 11.0-15.0 platelet count 185 THOUSAND/UL 10*3/mm3 558-160 2824/04/14 mean platelet volume 10.9 fL 7.5-12.5 Lab Report: LIPID PANEL, TSH/899, T4, FREE/866 - Chemistry cholesterol, serum 220 mg/dL 210-127 4128/04/14 HDL cholesterol, serum 30 mg/dL > OR=40 triglyceride, serum, fasting 466 mg/dL <150 LDL cholesterol, serum SEE NOTE mg/dL (calc) mg/dL <130 cholesterol/HDL ratio, serum 7.3 (calc) < OR=5.0 Lab Report: Prostatic Specific Ag - Chemistry prostate specific antigen 1.80 ng/mL 0.00-4.00 Lab Report: VITAMIN D, 25-HYDROXY/56393 - Chemistry vitamin D 25-hydroxy, serum 25 ng/mL 30-100 Office Visit: Confusion, dizziness after fall - Basic LDL target level 130 mg/dL Office Visit: Confusion, dizziness after fall - Chemistry HDL cholesterol, serum, target level 40 mg/dL triglyceride, target level 150 mg/dL cholesterol, target level 200 mg/dL Encounters Code Encounter Date Provider Facility CPT-16646 Level 4 Est. Patient 15:18:19 CDT Robbie Busby MD [facility] CPT-60824 Level 3 Est. Patient 09:00:37 CDT Rober Rodríguez APRN [facility] CPT-16708 Level 3 Est. Patient 16:07:10 CDT Robbie Busby MD [facility] CPT-04338 Level 4 Est. Patient 11:56:16 CDT Erin Garsia [facility] CPT-83973 Level 3 Est. Patient 17:48:02 CDT Robbie Busby MD [facility] CPT-55014 Level 4 Est. Patient 12:00:49 TRANSCRIPTION SPECIALIST Rober Rodríguez [facility] CPT-35037 Level 3 Est. Patient 09:16:37 CDT Robbie Busby MD [facility] CPT-60588 Level 3 Est. Patient 19:38:43 CDT Robbie Busby MD [facility] CPT-71710 Level 3 Est. Patient 11:53:38 CDT Robbie Busby MD [facility] CPT-20037 Level 4 Est. Patient 12:52:22 CDT Rober Rodríguez [facility] CPT-68053 Level 4 Est. Patient 22:55:17 CDT Robbie Busby MD [facility]-62318 Level 3 Est. Patient 12:38:24 CDT Desmond Diaz DO [facility] CPT-50549 Level 4 Est. Patient 11:25:03 TRANSCRIPTION SPECIALIST Robbie Busby MD [facility] CPT-03846 Level 4 Est. Patient 14:50:10 CDT Robbie Busby MD [facility] CPT-77640 Level 4 Est. Patient 23:30:43 CDT Robbie Busby MD [facility] CPT-33837 Level 4 Est. Patient 10:30:43 CDT Robbie Busby MD [facility] CPT-97180 Level 3 Est. Patient 17:08:12 CDT Aelx ALVAREZ [facility] CPT-97675 Level 4 Est. Patient 17:51:38 CDT Robbie Busby MD [facility] CPT-69560 Level 4 Est. Patient 14:00:21 CDT Robbie Busby MD [facility] CPT-11733 Level 4 Est. Patient 12:46:48 CDT Robbie Busby MD [facility] CPT-70421 Level 4 Est. Patient 13:34:33 CDT Robbie Busby MD [facility] CPT-67091 Level 4 Est. Patient 16:58:28 CDT Robbie Busby MD [facility] CPT-17601 Level 3 Est. Patient 19:36:53 CDT Alex ALVAREZ [facility] CPT-11958 Level 3 Est. Patient 12:58:15 CDT Robbie Busby MD [facility] Procedures Code Procedure Name Date Entry Date Standard Description CPT-J1071 Depo Testosterone 200mg 09:03:53 CDT CPT-32279 Abx/Therapy Injection 09:03:53 CDT CPT-G0439 [facility] Annual Wellness Exam 16:47:44 CDT CPT-J1071 Depo Testosterone 200mg 09:06:28 CDT CPT-32771 Abx/Therapy Injection 09:06:28 CDT CPT-J1071 Depo Testosterone 200mg 08:30:01 CDT CPT-87555 Abx/Therapy Injection 08:30:01 CDT CPT-J1071 Depo Testosterone 200mg 08:24:00 CDT CPT-96629 Abx/Therapy Injection 08:24:00 CDT CPT-88417 Venipuncture Draw Fee 14:39:06 CDT CPT-67112 Ribs unilateral 2V - XRAY USE ONLY 12:10:11 CDT CPT-63010 First Vx - Ix admin for Medicare patients 16:32:53 CDT CPT-14258 Boostrix Intramuscular Suspension 5-2.5-18.5 16:32:53 CDT CPT-01702 TB Skin Test 11:42:28 CDT CPT-65247 Tdap 7yrs or > 11:42:28 CDT CPT-J0696 Rocephin 1000 mg (Ceftriaxone) 17:43:43 TRANSCRIPTION SPECIALIST CPT-J1040 Depo Medrol 80 mg (Methyl Prednisolone Acetate) 17:43: 43 TRANSCRIPTION SPECIALIST CPT-J1100 Decadron 8mg (Dexamethasone) 17:43:42 TRANSCRIPTION SPECIALIST CPT-30149 Abx/Therapy Injection 17:43:42 TRANSCRIPTION SPECIALIST CPT-90866 Abx/Therapy Injection 17:43:42 TRANSCRIPTION SPECIALIST CPT-J1040 Depo Medrol 80 mg (Methyl Prednisolone Acetate) 09:43: 34 TRANSCRIPTION SPECIALIST CPT-J1100 Decadron 8mg (Dexamethasone) 09:43:34 TRANSCRIPTION SPECIALIST CPT-J0696 Rocephin 1gm Inj Solr 09:43:34 TRANSCRIPTION SPECIALIST CPT-17327 Wound Culture - LAB USE ONLY 14:00:21 CDT CPT-I/D I/D Abscess 09:16:37 CDT CPT-10070 Venipuncture Draw Fee 15:20:23 CDT CPT-87898 Microalbumin - LAB USE ONLY 16:02:19 CDT CPT-15441 CBC - LAB USE ONLY 16:02:19 CDT CPT-13313 Venipuncture Draw Fee 16:02:19 CDT CPT-G0438 Initial Annual Wellness Exam 08:10:28 CDT CPT-82509 Venipuncture Draw Fee 13:07:17 CDT CPT-G0008 Administration of Influenza Virus Vaccine 16:09:59 CDT CPT-51068 Fluzone Quadrivalent Intramuscular Suspension 0.5 ML 16: 09:59 CDT CPT-45706 Spec Collection and Handling Fee 15:05:50 CDT
--- OUTSIDE RECORDS SUMMARY | 2018-04-18 14:18 | XMS REPORT | Clinical Summary ---
Author Author Admin, [facility] Organization [facility] Address Unknown Phone Unavailable Allergies, Adverse [...] 1 tab by mouth twice daily TRIMETHOPRIM-SULFAMETHOXAZOLE [id number] No Longer Active Robbie Busby MD Active SPIRONOLACTONE 25 MG TAB 4 tablets by mouth daily SPIRONOLACTONE 56307149042 Active Robbie Busby MD Active HYDRALAZINE HCL 50 MG ORAL TABS TWO BY MOUTH THREE TIMES DAILY HYDRALAZINE HCL 09395851120 No Longer Active Jillina Frazell CHEMISTRY TECHNOLOGIST Active HYDROCODONE-ACETAMINOPHEN 5-325 MG TABS 1 tab by mouth BID prn back pain 2013 HYDROCODONE-ACETAMINOPHEN 94747389857 No Longer Active Jillina Frazell CHEMISTRY TECHNOLOGIST Active HYDROCHLOROTHIAZIDE TABS Take one by mouth daily HYDROCHLOROTHIAZIDE TABS 82553991565 No Longer Active Jillina Frazell CHEMISTRY TECHNOLOGIST Active LAMISIL 125 MG ORAL PACK 1 TAB PO DAILY TERBINAFINE HCL 63521333017 No Longer Active Jillina Frazell CHEMISTRY TECHNOLOGIST Active TRILEPTAL 150 MG ORAL TABS 1 TAB PO Q HS OXCARBAZEPINE 06142002186 No Longer Active Jillina Frazell CHEMISTRY TECHNOLOGIST Active BETADINE 10 % EXT SOLN wash with solution to treat follicultis POVIDONE-IODINE 31982732532 No Longer Active Jillina Frazell CHEMISTRY TECHNOLOGIST Active NYSTATIN 868589 UNIT/ML M/T SUSP 5mL po QID x 10 days NYSTATIN 08603129669 No Longer Active Erin Garsia APRN Active PREDNISONE 20 MG TAB 1 tablet twice daily for 2 days, then 1 tablet once daily for 2 days PREDNISONE 33111962135 No Longer Active Robbie Busby MD Active CEFDINIR 300 MG ORAL CAPS Take 1 cap po bid x 10 days CEFDINIR 27503992760 No Longer Active Robbie Busby MD Active AMLODIPINE BESYLATE 10 MG TABS 1 tablet by mouth daily AMLODIPINE BESYLATE 27690858478 Active Robbie Busby MD Active CARVEDILOL 25 MG TABS 1 & 1/2 TAB po BID CARVEDILOL 35175777653 Active Robbie Busby MD Active VITAMIN D3 93925 UNIT CAPS 2 CAPS PO WEEKLY CHOLECALCIFEROL 67649647414 Active Erin Garsia APRN Active NEXIUM 40 MG CPDR 1 cap by mouth daily ESOMEPRAZOLE MAGNESIUM 12957473747 Active Gali Sruthi Active PROTONIX 40 MG SOLR 1 po qday for acid reflux PANTOPRAZOLE SODIUM 93504105402 No Longer Active Gali Torresjuan carlos Active KEFLEX 500 MG CAP 1 po TID x 10 days CEPHALEXIN 36567087171 No Longer Active Robbie Busby MD Active FIORICET 50-300-40 MG ORAL CAPS take 1 tab po qday prn migraines. [id number] 64369857842 Active Robbie Busby MD Active TOPIRAMATE 50 MG ORAL TABS take 1 tab po BID for migraines. TOPIRAMATE 06096801276 Active Robbie Busby MD Active MECLIZINE HCL 25 MG TAB one 4 times a day as needed for dizziness MECLIZINE HCL 01954002069 Active Robbie Busby MD Active TEMAZEPAM 15 MG ORAL CAPS 1 TAB PO Q HS TEMAZEPAM 37458316613 Active Robbie Busby MD Active ALPRAZOLAM 2 MG ORAL TABS 1 TAB PO BID ALPRAZOLAM 42411138144 Active Robbie Busby MD Active FENOFIBRATE 145 MG TABS Take one by mouth daily FENOFIBRATE 11895072956 No Longer Active Robbie Busby MD Active SPIRONOLACTONE 50 MG TABS 1 tablet by mouth twice a day SPIRONOLACTONE 30301722243 No Longer Active Robbie Busby MD Active HYDRALAZINE HCL 25 MG TABS 1 tablet by mouth tid for hypertension HYDRALAZINE HCL 38692197764 No Longer Active Robbie Busby MD Active VIIBRYD 40 MG TABS take 1 tab po qday for depression. VILAZODONE HCL 76236174207 No Longer Active Robbie Busby MD Active TERBINAFINE HCL 250 MG TABS 1 tab po qday for foot infection 2014 TERBINAFINE HCL 97356468739 No Longer Active Robbie Busby MD Active GABAPENTIN 300 MG CAPS 1 po q hs for nerve pain GABAPENTIN 39388149396 Active Robbie Busby MD Active FLONASE 50 MCG/ACT SUSP 1 spray each nostril twice daily for allergies and runny nose FLUTICASONE PROPIONATE 28589361652 Active Robbie Busby MD Active CHERATUSSIN AC 100-10 MG/5ML ORAL SOLN 7.5 mL PO q 4-6 hrs PRN cough GUAIFENESIN-CODEINE 47660389220 No Longer Active Robbie Busby MD Active AZITHROMYCIN 250 MG ORAL TABS 2 tablets PO today---then, 1 tablet PO daily x 4 more days (and 1 optional refill) AZITHROMYCIN 29784452465 No Longer Active Robbie Bsuby MD Active CLONIDINE HCL 0.2 MG ORAL TABS 1 TAB BY MOUTH EVERY 8 HOURS CLONIDINE HCL 75279259745 Active Robbie Busby MD Active NORVASC 10 MG TAB 1 tablet by mouth daily AMLODIPINE BESYLATE 50670777399 No Longer Active Alex ALVAREZ Active IMDUR 60 MG TAB CR take 1 tab po qday for blood pressure ISOSORBIDE MONONITRATE Active Robbie Busby MD Active ISOSORBIDE DINITRATE 30 MG TABS Take one by mouth daily ISOSORBIDE DINITRATE 47633030694 No Longer Active Robbie Busby MD Active VIIBRYD 40 MG TABS 1 TA B PO DAILY VILAZODONE HCL 03399641846 Active Robbie Busby MD Active LORATADINE 10 MG TABS 1 tablet by mouth daily for congestion and allergies. LORATADINE 34387763974 Active Robbie Busby MD Active ZITHROMAX 250 MG TAB 2 po today, then 1 po q days 2-5 AZITHROMYCIN 62937437225 No Longer Active Robbie Busby MD Active EIVCJRCT-CWV-1 0.3 MG/24HR PTWK apply 2 patches q week for HTN CLONIDINE HCL 39297434520 Active Robbie Busby MD Active NITROSTAT 0.4 MG SUBL PRN NITROGLYCERIN 66242226140 Active Robbie Busby MD Active DOXAZOSIN MESYLATE 4 MG TABS Take one by mouth daily DOXAZOSIN MESYLATE 19754386691 Active Robbie Busby MD Active TOPROL XL 200 MG [id number] Take one by mouth daily METOPROLOL SUCCINATE 55411430770 Active Robbie Busby MD Active VENLAFAXINE HCL ER 150 MG [id number] Take one by mouth daily VENLAFAXINE HCL 83151259062 Active Robbie Busby MD Active LIPITOR 40 MG TABS Take one by mouth daily ATORVASTATIN CALCIUM 37079913931 Active Robbie Busby MD Active ISOSORBIDE DINITRATE 30 MG TABS Take one by mouth daily ISOSORBIDE DINITRATE 30 MG TABS 551713 ISOSORBIDE DINITRATE Inactive NORVASC 10 MG TAB 1 tablet by mouth daily NORVASC 10 MG TAB 070273 AMLODIPINE BESYLATE Inactive AZITHROMYCIN 250 MG ORAL TABS 2 tablets PO today---then, 1 tablet PO daily x 4 more days (and 1 optional refill) AZITHROMYCIN 250 MG ORAL TABS 4133793 AZITHROMYCIN Inactive CHERATUSSIN AC 100-10 MG/5ML ORAL SOLN 7.5 mL PO q 4-6 hrs PRN cough CHERATUSSIN AC 100-10 MG/5ML ORAL SOLN 857748 GUAIFENESIN- CODEINE Inactive VIIBRYD 40 MG TABS take 1 tab po qday for depression. VIIBRYD 40 MG TABS VILAZODONE HCL Inactive HYDRALAZINE HCL 25 MG TABS 1 tablet by mouth tid for hypertension HYDRALAZINE HCL 25 MG TABS 331706 HYDRALAZINE HCL Inactive SPIRONOLACTONE 50 MG TABS 1 tablet by mouth twice a day SPIRONOLACTONE 50 MG TABS 699278 SPIRONOLACTONE Inactive FENOFIBRATE 145 MG TABS Take one by mouth daily FENOFIBRATE 145 MG TABS 242738 FENOFIBRATE Inactive PROTONIX 40 MG SOLR 1 po qday for acid reflux PROTONIX 40 MG SOLR 660628 PANTOPRAZOLE SODIUM Inactive CEFDINIR 300 MG ORAL CAPS Take 1 cap po bid x 10 days CEFDINIR 300 MG ORAL CAPS 022840 CEFDINIR Inactive PREDNISONE 20 MG TAB 1 tablet twice daily for 2 days, then 1 tablet once daily for 2 days PREDNISONE 20 MG TAB 816154 PREDNISONE Inactive NYSTATIN 459970 UNIT/ML M/T SUSP 5mL po QID x 10 days NYSTATIN 673191 UNIT/ML M/T SUSP 379056 NYSTATIN Inactive BETADINE 10 % EXT SOLN wash with solution to treat follicultis BETADINE 10 % EXT SOLN 2177143 POVIDONE-IODINE Inactive TRILEPTAL 150 MG ORAL TABS 1 TAB PO Q HS TRILEPTAL 150 MG ORAL TABS 887165 OXCARBAZEPINE Inactive LAMISIL 125 MG ORAL PACK 1 TAB PO DAILY LAMISIL 125 MG ORAL PACK TERBINAFINE HCL Inactive HYDROCHLOROTHIAZIDE TABS Take one by mouth daily HYDROCHLOROTHIAZIDE TABS HYDROCHLOROTHIAZIDE TABS Inactive HYDROCODONE-ACETAMINOPHEN 5-325 MG TABS 1 tab by mouth BID prn back pain 2013 HYDROCODONE-ACETAMINOPHEN 5-325 MG TABS 876496 HYDROCODONE -ACETAMINOPHEN Inactive HYDRALAZINE HCL 50 MG ORAL TABS TWO BY MOUTH THREE TIMES DAILY HYDRALAZINE HCL 50 MG ORAL TABS 908704 HYDRALAZINE HCL Inactive ZITHROMAX 250 MG TAB 2 po today, then 1 po q days 2-5 ZITHROMAX 250 MG TAB 6446853 AZITHROMYCIN Inactive TERBINAFINE HCL 250 MG TABS 1 tab po qday for foot infection 2014 TERBINAFINE HCL 250 MG TABS 573063 TERBINAFINE HCL Inactive KEFLEX 500 MG CAP 1 po TID x 10 days KEFLEX 500 MG CAP 826024 CEPHALEXIN Inactive BACTRIM DS 800-160 MG TAB 1 tab by mouth twice daily BACTRIM DS 800-160 MG TAB 918641 TRIMETHOPRIM-SULFAMETHOXAZOLE Inactive Advance Directives Directive Description Start [...] Acid - Chemistry sodium, serum 139 mmol/L 374-411 3869/04/22 carbon dioxide, venous blood 29.4 mmol/L 21.0-32.0 [...] to Follow Negative Lab Report: VITAMIN D, 25-HYDROXY/01519 - Chemistry vitamin D 25-hydroxy, serum 23 ng/mL 30-100 Encounters Code Encounter Date Provider Facility [facility]-[id number] Level 3 Est. Patient 09:16:37 CDT Robbie Busby MD [facility]-40875 Level 3 Est. Patient 19:38:43 CDT Robbie Busby MD [facility]-21349 Level 3 Est. Patient 11:53:38 CDT Robbie Busby MD [facility]-22542 Level 4 Est. Patient 12:52:22 CDT Rober Rodríguez APRN [facility] CPT-73026 Level 4 Est. Patient 22:55:17 CDT Robbie Busby MD [facility] CPT-19992 Level 3 Est. Patient 12:38:24 CDT Desmond Diaz DO [facility] CPT-12406 Level 4 Est. 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 Patient 14:50:10 CDT Robbie Busby MD [facility] CPT-54669 Level 4 Est. Patient 23:30:43 CDT Robbie Busby MD [facility] CPT-45369 Level 4 Est. Patient 10:30:43 CDT Robbie Busby MD [facility] CPT-76791 Level 3 Est. Patient 17:08:12 CDT Alex ALVAREZ [facility] CPT-18939 Level 4 Est. Patient 17:51:38 CDT Robbie Busby MD [facility] CPT-88715 Level 4 Est. Patient 14:00:21 CDT Robbie Busby MD [facility] CPT-93485 Level 4 Est. Patient 12:46:48 CDT Robbie Busby MD [facility] CPT-05481 Level 4 Est. Patient 13:34:33 CDT Robbie Busby MD [facility] CPT-20336 Level 4 Est. Patient 16:58:28 CDT Robbie Busby MD [facility] CPT-01575 Level 3 Est. Patient 19:36:53 CDT Alex ALVAREZ [facility] CPT-56648 Level 3 Est. Patient 12:58:15 CDT Robbie Busby MD [facility] Procedures Code Procedure Name Date Entry Date Standard Description CPT-12878 Wound Culture - LAB USE ONLY 14:00:21 CDT CPT-I/D I/D Abscess 09:16:37 CDT CPT-44188 Venipuncture Draw Fee 15:20:23 CDT CPT-33413 Microalbumin - LAB USE ONLY 16:02:19 CDT CPT-49814 CBC - LAB USE ONLY 16:02:19 CDT CPT-57609 Venipuncture Draw Fee 16:02:19 CDT CPT-G0438 Initial Annual Wellness Exam 08:10:28 CDT CPT-66346 Venipuncture Draw Fee 13:07:17 CDT CPT-G0008 Administration of Influenza Virus Vaccine 16:09:59 CDT CPT-42378 Fluzone Quadrivalent Intramuscular Suspension 0.5 ML 16: 09:59 CDT CPT-63036 Spec Collection and Handling Fee 15:05:50 CDT
--- OUTSIDE RECORDS SUMMARY | 2018-04-18 14:21 | XMS REPORT | Clinical Summary ---
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 Unspecified essential hypertension Sinusitis - acute [...] 724.2 Active Robbie Busby MD [facility] Medication List Medication Instructions Start Date Stop Date Generic Name NDC Status Provider Patient Instruction GUAIFENESIN ER 600 MG ORAL TABLET EXTENDED RELEASE 12 HOUR 1 tab po q am 2016 GUAIFENESIN [id number] No Longer Active Robbie Busby MD Active DIVALPROEX SODIUM ER 500 MG ORAL TABLET EXTENDED RELEASE 24 HOUR Once daily DIVALPROEX SODIUM 92971378487 Active Robbie Busby MD Active DEPO-TESTOSTERONE 200 MG/ML INTRAMUSCULAR SOLUTION 1 IM Injections every 2 weeks for low testosterone TESTOSTERONE CYPIONATE 36220820668 Active Zulema Blank LPN Active CYCLOBENZAPRINE HCL 10 MG ORAL TABLET 1 po TID PRN muscle spasm/pain for 10 days CYCLOBENZAPRINE HCL 48143598139 Active JONATHAN Moncada Active FLUTICASONE PROPIONATE 50 MCG/ACT NASAL SUSPENSION 2 sprays per nostril bid for 1 week, then 1 spray bid FLUTICASONE PROPIONATE 12336028089 Active 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 HYDRALAZINE HCL 67448904860 Active Rober Rodríguez APRN Active VITAMIN D3 49041 UNIT ORAL TABLET 2 po weekly CHOLECALCIFEROL 45813594197 Active Robbie Busby MD Active OXYCODONE HCL ER 10 MG ORAL TABLET ER 12 HOUR ABUSE-DETERRENT 1 tab po 3 times qd. OXYCODONE HCL 06828305545 Active Robbie Busby MD Active NITROSTAT 0.4 MG SUBLINGUAL TABLET SUBLINGUAL PRN NITROGLYCERIN 49025113984 No Longer Active Robbie Busby MD Active LORATADINE 10 MG ORAL TABLET 1 tablet by mouth daily for congestion and allergies. LORATADINE 35305416775 No Longer Active Robbie Busby MD Active FLONASE 50 MCG/ACT NASAL SUSPENSION 1 spray each nostril twice daily for allergies and runny nose FLUTICASONE PROPIONATE 86447660188 No Longer Active Robbie Busby MD Active FIORICET 50-300-40 MG ORAL CAPSULE take 1 tab po qday prn migraines. [id number]-[id number] 27313372916 No Longer Active Robbie Busby MD Active VITAMIN D3 32023 UNIT ORAL CAPSULE 2 CAPS PO WEEKLY CHOLECALCIFEROL 81353865435 No Longer Active Robbie Busby MD Active CYCLOBENZAPRINE HCL 10 MG ORAL TABLET 1 tablet by mouth three times daily as needed for muscle spasm/pain for 10 days CYCLOBENZAPRINE HCL 01096471687 No Longer Active Robbie Busby MD Active PREDNISONE 20 MG ORAL TABLET take 3 tabs daily for 3 days, 2 tabs daily for 3 days, 1 tab daily for 3 days, 1/2 tab daily for 4 days PREDNISONE 31110316334 No Longer Active Erin Garsia APRN Active CLONIDINE HCL 0.2 MG ORAL TABLET 1 TAB BY MOUTH EVERY 8 HOURS CLONIDINE HCL 49195921617 No Longer Active Erin Garsia APRN Active MECLIZINE HCL 25 MG ORAL TABLET one 4 times a day as needed for dizziness MECLIZINE HCL 83353267507 No Longer Active Erin Garsia APRN Active SPIRONOLACTONE 25 MG ORAL TABLET 4 tablets by mouth daily SPIRONOLACTONE 33096571044 No Longer Active Erin Garsia APRN Active LEVAQUIN 500 MG ORAL TABLET 1 tablet by mouth daily for 7 days LEVOFLOXACIN 32263468489 No Longer Active Erin Garsia APRN Active BACTRIM DS 800-160 MG ORAL TABLET 1 tab by mouth twice daily 2015 TRIMETHOPRIM-SULFAMETHOXAZOLE 96965362344 No Longer Active Robbie Busby MD Active HYDRALAZINE HCL 50 MG ORAL TABLET TWO BY MOUTH THREE TIMES DAILY HYDRALAZINE HCL 95428187987 No Longer Active Jillld Rodríguez APRN Active HYDROCODONE-ACETAMINOPHEN 5-325 MG ORAL TABLET 1 tab by mouth BID prn back pain HYDROCODONE-ACETAMINOPHEN 88287438782 No Longer Active Jillina Anne GONZALEZN Active HYDROCHLOROTHIAZIDE TABLET Take one by mouth daily HYDROCHLOROTHIAZIDE TABS 88378125183 No Longer Active Jillld Rodríguez APRN Active LAMISIL 125 MG ORAL PACKET 1 TAB PO DAILY TERBINAFINE HCL 94607856349 No Longer Active Andrellld Rodríguez APRN Active TRILEPTAL 150 MG ORAL TABLET 1 TAB PO Q HS OXCARBAZEPINE 22668955528 No Longer Active Rober Rodríguez APRN Active BETADINE 10 % EXTERNAL SOLUTION wash with 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 07/29 POVIDONE-IODINE 92610652507 No Longer Active Rober Rodríguez APRN Active NYSTATIN 891403 UNIT/ML MOUTH/THROAT SUSPENSION 5mL po QID x 10 days NYSTATIN 03707771384 No Longer Active Erin Garsia APRN Active PREDNISONE 20 MG ORAL TABLET 1 tablet twice daily for 2 days, then 1 tablet once daily for 2 days PREDNISONE 33938034608 No Longer Active Robbie Busby MD Active CEFDINIR 300 MG ORAL CAPSULE Take 1 cap po bid x 10 days CEFDINIR 28075395642 No Longer Active oRbbie Busby MD Active AMLODIPINE BESYLATE 10 MG ORAL TABLET 1 tablet by mouth daily AMLODIPINE BESYLATE 86340615009 Active Robbie Busby MD Active CARVEDILOL 25 MG ORAL TABLET 1 & 1/2 TAB po BID CARVEDILOL 55599160586 Active Robbie Busby MD Active NEXIUM 40 MG ORAL CAPSULE DELAYED RELEASE 1 cap by mouth daily ESOMEPRAZOLE MAGNESIUM 63788875098 Active Robbie Busby MD Active PROTONIX 40 MG INTRAVENOUS SOLUTION RECONSTITUTED 1 po qday for acid reflux PANTOPRAZOLE SODIUM 25733701926 No Longer Active Gali Raida Active KEFLEX 500 MG ORAL CAPSULE 1 po TID x 10 days CEPHALEXIN 30355792574 No Longer Active Robbie Busby MD Active TOPIRAMATE 50 MG ORAL TABLET take 1 tab po BID for migraines. TOPIRAMATE 83044220417 Active Robbie Busby MD Active TEMAZEPAM 15 MG ORAL CAPSULE 1 TAB PO Q HS TEMAZEPAM 06944762646 Active Robbie Busby MD Active ALPRAZOLAM 2 MG ORAL TABLET 1 TAB PO BID ALPRAZOLAM 13397166199 Active Robbie Busby MD Active FENOFIBRATE 145 MG ORAL TABLET Take one by mouth daily FENOFIBRATE 80244209480 No Longer Active Robbie Busby MD Active SPIRONOLACTONE 50 MG ORAL TABLET 1 tablet by mouth twice a day SPIRONOLACTONE 75533910948 No Longer Active Robbie Busby MD Active HYDRALAZINE HCL 25 MG ORAL TABLET 1 tablet by mouth tid for hypertension 2013 HYDRALAZINE HCL 97452956942 No Longer Active Robbie Busby MD Active VIIBRYD 40 MG ORAL TABLET take 1 tab po qday for depression. 2014 VILAZODONE HCL 39585376316 No Longer Active Robbie Busby MD Active TERBINAFINE HCL 250 MG ORAL TABLET 1 tab po qday for foot infection TERBINAFINE HCL 76350753820 No Longer Active Robbie Busby MD Active GABAPENTIN 300 MG ORAL CAPSULE 1 po q hs for nerve pain GABAPENTIN 36885894700 Active Robbie Busby MD Active CHERATUSSIN AC 100-10 MG/5ML ORAL SOLUTION 7.5 mL PO q 4-6 hrs PRN cough 2014 GUAIFENESIN-CODEINE 27314381012 No Longer Active Robbie Busby MD Active AZITHROMYCIN 250 MG ORAL TABLET 2 tablets PO today---then, 1 tablet PO daily x 4 more days (and 1 optional refill) AZITHROMYCIN 21594509106 No Longer Active Robbie Busby MD Active NORVASC 10 MG ORAL TABLET 1 tablet by mouth daily AMLODIPINE BESYLATE 78063067580 No Longer Active Alex ALVAREZ Active IMDUR 60 MG ORAL TABLET EXTENDED RELEASE 24 HOUR take 1 tab po qday for blood pressure ISOSORBIDE MONONITRATE 48706565276 Active Robbie Busby MD Active ISOSORBIDE DINITRATE 30 MG ORAL TABLET Take one by mouth daily ISOSORBIDE DINITRATE 12780622103 No Longer Active Robbie Busby MD Active VIIBRYD 40 MG ORAL TABLET 1 TA B PO DAILY VILAZODONE HCL 38162763694 Active Robbie Busby MD Active ZITHROMAX 250 MG ORAL TABLET 2 po today, then 1 po q days 2-5 AZITHROMYCIN 13220368246 No Longer Active Robbie Busby MD Active [id number]-DKR-0 0.3 MG/24HR TRANSDERMAL PATCH WEEKLY apply 2 patches q week for HTN CLONIDINE HCL 14115051132 Active Robbie Busby MD Active DOXAZOSIN MESYLATE 4 MG ORAL TABLET Take one by mouth daily DOXAZOSIN MESYLATE 69005869276 Active Robbie Busby MD Active TOPROL XL 200 MG ORAL TABLET EXTENDED RELEASE 24 HOUR Take one by mouth daily METOPROLOL SUCCINATE 02033070524 Active Robbie Busby MD Active VENLAFAXINE HCL ER 150 MG ORAL TABLET EXTENDED RELEASE 24 HOUR Take one by mouth daily VENLAFAXINE HCL 23472687021 Active Robbie Busby MD Active LIPITOR 40 MG ORAL TABLET Take one by mouth daily ATORVASTATIN CALCIUM 82806810460 Active Robbie Busby MD Active ISOSORBIDE DINITRATE 30 MG ORAL TABLET Take one by mouth daily ISOSORBIDE DINITRATE 30 MG ORAL TABLET 360679 ISOSORBIDE DINITRATE Inactive NORVASC 10 MG ORAL TABLET 1 tablet by mouth daily NORVASC 10 MG ORAL TABLET 847963 AMLODIPINE BESYLATE Inactive AZITHROMYCIN 250 MG ORAL TABLET 2 tablets PO today---then, 1 tablet PO daily x 4 more days (and 1 optional refill) AZITHROMYCIN 250 MG ORAL TABLET 672449 AZITHROMYCIN Inactive CHERATUSSIN AC 100-10 MG/5ML ORAL SOLUTION 7.5 mL PO q 4-6 hrs PRN cough 2014 CHERATUSSIN AC 100-10 MG/5ML ORAL SOLUTION 401419 GUAIFENESIN-CODEINE Inactive VIIBRYD 40 MG ORAL TABLET take 1 tab po qday for depression. 2014 VIIBRYD 40 MG ORAL TABLET VILAZODONE HCL Inactive HYDRALAZINE HCL 25 MG ORAL TABLET 1 tablet by mouth tid for hypertension 2013 HYDRALAZINE HCL 25 MG ORAL TABLET 098733 HYDRALAZINE HCL Inactive SPIRONOLACTONE 50 MG ORAL TABLET 1 tablet by mouth twice a day SPIRONOLACTONE 50 MG ORAL TABLET 354051 SPIRONOLACTONE Inactive FENOFIBRATE 145 MG ORAL TABLET Take one by mouth daily FENOFIBRATE 145 MG ORAL TABLET 087774 FENOFIBRATE Inactive PROTONIX 40 MG INTRAVENOUS SOLUTION RECONSTITUTED 1 po qday for acid reflux PROTONIX 40 MG INTRAVENOUS SOLUTION RECONSTITUTED 630858 PANTOPRAZOLE SODIUM Inactive CEFDINIR 300 MG ORAL CAPSULE Take 1 cap po bid x 10 days CEFDINIR 300 MG ORAL CAPSULE 780869 CEFDINIR Inactive PREDNISONE 20 MG ORAL TABLET 1 tablet twice daily for 2 days, then 1 tablet once daily for 2 days PREDNISONE 20 MG ORAL TABLET 438960 PREDNISONE Inactive NYSTATIN 174534 UNIT/ML MOUTH/THROAT SUSPENSION 5mL po QID x 10 days NYSTATIN 535683 UNIT/ML MOUTH/THROAT SUSPENSION 103303 NYSTATIN Inactive BETADINE 10 % EXTERNAL SOLUTION wash with solution to treat follicultis 07/29 BETADINE 10 % EXTERNAL SOLUTION 7853151 POVIDONE-IODINE Inactive TRILEPTAL 150 MG ORAL TABLET 1 TAB PO Q HS TRILEPTAL 150 MG ORAL TABLET 781198 OXCARBAZEPINE Inactive LAMISIL 125 MG ORAL PACKET 1 TAB PO DAILY LAMISIL 125 MG ORAL PACKET TERBINAFINE HCL Inactive HYDROCHLOROTHIAZIDE TABLET Take one by mouth daily HYDROCHLOROTHIAZIDE TABLET HYDROCHLOROTHIAZIDE TABS Inactive HYDROCODONE-ACETAMINOPHEN 5-325 MG ORAL TABLET 1 tab by mouth BID prn back pain HYDROCODONE-ACETAMINOPHEN 5-325 MG ORAL TABLET 412676 HYDROCODONE-ACETAMINOPHEN Inactive HYDRALAZINE HCL 50 MG ORAL TABLET TWO BY MOUTH THREE TIMES DAILY HYDRALAZINE HCL 50 MG ORAL TABLET 041760 HYDRALAZINE HCL Inactive LEVAQUIN 500 MG ORAL TABLET 1 tablet by mouth daily for 7 days LEVAQUIN 500 MG ORAL TABLET 014354 LEVOFLOXACIN Inactive SPIRONOLACTONE 25 MG ORAL TABLET 4 tablets by mouth daily SPIRONOLACTONE 25 MG ORAL TABLET 018843 SPIRONOLACTONE Inactive MECLIZINE HCL 25 MG ORAL TABLET one 4 times a day as needed for dizziness MECLIZINE HCL 25 MG ORAL TABLET 341212 MECLIZINE HCL Inactive CLONIDINE HCL 0.2 MG ORAL TABLET 1 TAB BY MOUTH EVERY 8 HOURS CLONIDINE HCL 0.2 MG ORAL TABLET 638009 CLONIDINE HCL Inactive CYCLOBENZAPRINE HCL 10 MG ORAL TABLET 1 tablet by mouth three times daily as needed for muscle spasm/pain for 10 days CYCLOBENZAPRINE HCL 10 MG ORAL TABLET 313308 CYCLOBENZAPRINE HCL Inactive VITAMIN D3 90638 UNIT ORAL CAPSULE 2 CAPS PO WEEKLY VITAMIN D3 52833 UNIT ORAL CAPSULE CHOLECALCIFEROL Inactive FIORICET 50-300-40 MG ORAL CAPSULE take 1 tab po qday prn migraines. FIORICET 50-300-40 MG ORAL CAPSULE 664793 BUTALBITAL-APAP- CAFFEINE Inactive FLONASE 50 MCG/ACT NASAL SUSPENSION 1 spray each nostril twice daily for allergies and runny nose FLONASE 50 MCG/ACT NASAL SUSPENSION 8572923 FLUTICASONE PROPIONATE Inactive LORATADINE 10 MG ORAL TABLET 1 tablet by mouth daily for congestion and allergies. LORATADINE 10 MG ORAL TABLET 185153 LORATADINE Inactive NITROSTAT 0.4 MG SUBLINGUAL TABLET SUBLINGUAL PRN NITROSTAT 0.4 MG SUBLINGUAL TABLET SUBLINGUAL 869331 NITROGLYCERIN Inactive GUAIFENESIN ER 600 MG ORAL TABLET EXTENDED RELEASE 12 HOUR 1 tab po q am 2016 GUAIFENESIN ER 600 MG ORAL TABLET EXTENDED RELEASE 12 HOUR GUAIFENESIN Inactive ZITHROMAX 250 MG ORAL TABLET 2 po today, then 1 po q days 2-5 ZITHROMAX 250 MG ORAL TABLET 641293 AZITHROMYCIN Inactive TERBINAFINE HCL 250 MG ORAL TABLET 1 tab po qday for foot infection TERBINAFINE HCL 250 MG ORAL TABLET 735913 TERBINAFINE HCL Inactive KEFLEX 500 MG ORAL CAPSULE 1 po TID x 10 days KEFLEX 500 MG ORAL CAPSULE 307456 CEPHALEXIN Inactive BACTRIM DS 800-160 MG ORAL TABLET 1 tab by mouth twice daily 2015 BACTRIM DS 800-160 MG ORAL TABLET 915365 TRIMETHOPRIM- SULFAMETHOXAZOLE Inactive PREDNISONE 20 MG ORAL TABLET take 3 tabs daily for 3 days, 2 tabs daily for 3 days, 1 tab daily for 3 days, 1/2 tab daily for 4 days PREDNISONE 20 MG ORAL TABLET 764305 PREDNISONE Inactive Advance Directives Directive Description Start [...] AUTO - Chemistry sodium, serum 142 mmol/L 739-046 9054/07/17 carbon dioxide, venous blood 28.2 mmol/L 21.0-32.0 [...] % 11.0-15.0 platelet count 185 THOUSAND/UL 10*3/mm3 647-593 0443/04/14 mean platelet volume 10.9 fL 7.5-12.5 Lab Report: LIPID PANEL, TSH/899, T4, FREE/866 - Chemistry cholesterol, serum 220 mg/dL 091-056 5366/04/14 HDL cholesterol, serum 30 mg/dL > OR=40 [...] 1.80 ng/mL 0.00-4.00 Lab Report: VITAMIN D, 25-HYDROXY/03152 - Chemistry vitamin D 25-hydroxy, serum 25 ng/mL 30-100 Office Visit: Confusion, dizziness after fall - Basic LDL target level 130 mg/dL Office Visit: Confusion, dizziness after fall - Chemistry HDL cholesterol, serum, target level 40 mg/dL triglyceride, target level 150 mg/dL cholesterol, target level 200 mg/dL Encounters Code Encounter Date Provider Facility CPT-87303 Level 3 Est. Patient 15:40:49 CDT Robbie Busby MD [facility] CPT-51585 Level 4 Est. Patient 15:18:19 CDT Robbie Busby MD [facility] CPT-65542 Level 3 Est. Patient 09:00:37 CDT Rober Rodríguez [facility] CPT-84410 Level 3 Est. Patient 16:07:10 CDT Robbie Busby MD [facility] CPT-54451 Level 4 Est. Patient 11:56:16 CDT Erin Garsia [facility] CPT-00312 Level 3 Est. Patient 17:48:02 CDT Robbie Busby MD [facility] CPT-68624 Level 4 Est. 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 Patient 09:16:37 CDT Robbie Busby MD [facility] CPT-59664 Level 3 Est. Patient 19:38:43 CDT Robbie Busby MD [facility] CPT-06207 Level 3 Est. Patient 11:53:38 CDT Robbie Busby MD [facility] CPT-60767 Level 4 Est. Patient 12:52:22 CDT Rober Rodríguez [facility] CPT-40738 Level 4 Est. Patient 22:55:17 CDT Robbie Busby MD [facility] CPT-35293 Level 3 Est. Patient 12:38:24 CDT Desmond Diaz DO [facility] CPT-57639 Level 4 Est. 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 Patient 14:50:10 CDT Robbie Busby MD [facility] CPT-68164 Level 4 Est. Patient 23:30:43 CDT Robbie Busby MD [facility] CPT-22592 Level 4 Est. Patient 10:30:43 CDT Robbie Busby MD [facility] CPT-65959 Level 3 Est. Patient 17:08:12 CDT Alex ALVAREZ [facility] CPT-58025 Level 4 Est. Patient 17:51:38 CDT Robbie Busby MD [facility] CPT-93825 Level 4 Est. Patient 14:00:21 CDT Robbie Busby MD [facility] CPT-92924 Level 4 Est. Patient 12:46:48 CDT Robbie Busby MD [facility] CPT-95261 Level 4 Est. Patient 13:34:33 CDT Robbie Busby MD [facility] CPT-23856 Level 4 Est. Patient 16:58:28 CDT Robbie Busby MD [facility] CPT-24512 Level 3 Est. Patient 19:36:53 CDT Alex Shaw [facility] CPT-89282 Level 3 Est. 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 OUT WORKER CPT-89380 Abx/Therapy Injection 09:38:36 DIE OUT WORKER CPT-J1071 Depo Testosterone 200mg 10:22:56 DIE OUT WORKER CPT-60255 Abx/Therapy Injection 10:22:56 DIE OUT WORKER CPT-J1071 Depo Testosterone 200mg 15:40:23 CDT CPT-73573 Abx/Therapy Injection 15:40:23 CDT CPT-J1071 Depo Testosterone 200mg 14:20:43 CDT CPT-42453 Abx/Therapy Injection 14:20:43 CDT CPT-J1071 Depo Testosterone 200mg 14:17:22 CDT CPT-85222 Abx/Therapy Injection 14:17:22 CDT CPT-J1071 Depo Testosterone 200mg 09:03:53 CDT CPT-14940 Abx/Therapy Injection 09:03:53 CDT CPT-G0439 [facility] Annual Wellness Exam 16:47:44 CDT CPT-J1071 Depo Testosterone 200mg 09:06:28 CDT CPT-61908 Abx/Therapy Injection 09:06:28 CDT CPT-J1071 Depo Testosterone 200mg 08:30:01 CDT CPT-53048 Abx/Therapy Injection 08:30:01 CDT CPT-J1071 Depo Testosterone 200mg 08:24:00 CDT CPT-73298 Abx/Therapy Injection 08:24:00 CDT CPT-07483 Venipuncture Draw Fee 14:39:06 CDT CPT-39430 Ribs unilateral 2V - XRAY USE ONLY 12:10:11 CDT CPT-59499 First Vx - Ix admin for Medicare patients 16:32:53 CDT CPT-14121 Boostrix Intramuscular Suspension 5-2.5-18.5 16:32:53 CDT CPT-54842 TB Skin Test 11:42:28 CDT CPT-23039 Tdap 7yrs or > 11:42:28 CDT CPT-J0696 Rocephin 1000 mg (Ceftriaxone) 17:43:43 DIE OUT WORKER CPT-J1040 Depo Medrol 80 mg (Methyl Prednisolone Acetate) 17:43: 43 DIE OUT WORKER CPT-J1100 Decadron 8mg (Dexamethasone) 17:43:42 DIE OUT WORKER CPT-76521 Abx/Therapy Injection 17:43:42 DIE OUT WORKER CPT-46336 Abx/Therapy Injection 17:43:42 DIE OUT WORKER CPT-J1040 Depo Medrol 80 mg (Methyl Prednisolone Acetate) 09:43: 34 DIE OUT WORKER CPT-J1100 Decadron 8mg (Dexamethasone) 09:43:34 DIE OUT WORKER CPT-J0696 Rocephin 1gm Inj Solr 09:43:34 DIE OUT WORKER CPT-29881 Wound Culture - LAB USE ONLY 14:00:21 CDT CPT-I/D I/D Abscess 09:16:37 CDT CPT-65153 Venipuncture Draw Fee 15:20:23 CDT CPT-83196 Microalbumin - LAB USE ONLY 16:02:19 CDT CPT-69723 CBC - LAB USE ONLY 16:02:19 CDT CPT-66380 Venipuncture Draw Fee 16:02:19 CDT CPT-G0438 Initial Annual Wellness Exam 08:10:28 CDT CPT-70199 Venipuncture Draw Fee 13:07:17 CDT CPT-G0008 Administration of Influenza Virus Vaccine 16:09:59 CDT CPT-92479 Fluzone Quadrivalent Intramuscular Suspension 0.5 ML 16: 09:59 CDT CPT-86004 Spec Collection and Handling Fee 15:05:50 CDT
--- OUTSIDE RECORDS SUMMARY | 2018-04-18 14:22 | XMS REPORT | Clinical Summary ---
Author Author Admin, [facility] Organization [facility] Address Unknown Phone Unavailable Allergies, Adverse Reactions, [...] muscle spasm/pain for 10 days CYCLOBENZAPRINE HCL 20075556329 Active Erin Garsia APRN Active PREDNISONE 20 MG TAB take 3 tabs daily for 3 days, 2 tabs daily for 3 days, 1 tab daily for 3 days, 1/2 tab daily for 4 days PREDNISONE 51855240056 Active Erin Garsia APRN Active CLONIDINE HCL 0.2 MG ORAL TABS 1 TAB BY MOUTH EVERY 8 HOURS 12/29 CLONIDINE HCL 78133962242 No Longer Active Erin Garsia APRN Active MECLIZINE HCL 25 MG TAB one 4 times a day as needed for dizziness MECLIZINE HCL 73802472976 No Longer Active Erin Garsia APRN Active SPIRONOLACTONE 25 MG TAB 4 tablets by mouth daily SPIRONOLACTONE 10431205365 No Longer Active Erin Garsia APRN Active LEVAQUIN 500 MG TAB 1 tablet by mouth daily for 7 days LEVOFLOXACIN 11619146511 No Longer Active Erin Garsia APRN Active BACTRIM DS 800-160 MG TAB 1 tab by mouth twice daily TRIMETHOPRIM-SULFAMETHOXAZOLE 99869017211 No Longer Active Robbie Busby MD Active HYDRALAZINE HCL 50 MG ORAL TABS TWO BY MOUTH THREE TIMES DAILY HYDRALAZINE HCL 33197727752 No Longer Active Jillina Frazell BOW MAKING MACHINE OPERATOR Active HYDROCODONE-ACETAMINOPHEN 5-325 MG TABS 1 tab by mouth BID prn back pain 2013 HYDROCODONE-ACETAMINOPHEN 15030313803 No Longer Active Jillina Frazell BOW MAKING MACHINE OPERATOR Active HYDROCHLOROTHIAZIDE TABS Take one by mouth daily HYDROCHLOROTHIAZIDE TABS 24354155930 No Longer Active Jillina Frazell BOW MAKING MACHINE OPERATOR Active LAMISIL 125 MG ORAL PACK 1 TAB PO DAILY TERBINAFINE HCL 92085841779 No Longer Active Jillina Frazell BOW MAKING MACHINE OPERATOR Active TRILEPTAL 150 MG ORAL TABS 1 TAB PO Q HS OXCARBAZEPINE 44528681753 No Longer Active Jillina Frazell BOW MAKING MACHINE OPERATOR Active BETADINE 10 % EXT SOLN wash with solution to treat follicultis POVIDONE-IODINE 85962660299 No Longer Active Andrellina Zulemal BOW MAKING MACHINE OPERATOR Active NYSTATIN 476259 UNIT/ML M/T SUSP 5mL po QID x 10 days NYSTATIN 34062532592 No Longer Active Erin Garsia APRN Active PREDNISONE 20 MG TAB 1 tablet twice daily for 2 days, then 1 tablet once daily for 2 days PREDNISONE 29663589669 No Longer Active Robbie Busby MD Active CEFDINIR 300 MG ORAL CAPS Take 1 cap po bid x 10 days CEFDINIR 79472876668 No Longer Active Robbie Busby MD Active AMLODIPINE BESYLATE 10 MG TABS 1 tablet by mouth daily AMLODIPINE BESYLATE 10965746215 Active Robbie Busby MD Active CARVEDILOL 25 MG TABS 1 & 1/2 TAB po BID CARVEDILOL 28945417940 Active Erin Garsia APRN Active VITAMIN D3 99558 UNIT CAPS 2 CAPS PO WEEKLY CHOLECALCIFEROL 68186517854 Active Erin Garsia APRN Active NEXIUM 40 MG CPDR 1 cap by mouth daily ESOMEPRAZOLE MAGNESIUM 75773328440 Active Robbie Busby MD Active PROTONIX 40 MG SOLR 1 po qday for acid reflux PANTOPRAZOLE SODIUM 36896664875 No Longer Active Gali Negro Active KEFLEX 500 MG CAP 1 po TID x 10 days CEPHALEXIN 41675948965 No Longer Active Robbie Busby MD Active FIORICET 50-300-40 MG ORAL CAPS take 1 tab po qday prn migraines. [id number] 73860946695 Active Robbie Busby MD Active TOPIRAMATE 50 MG ORAL TABS take 1 tab po BID for migraines. TOPIRAMATE 43151143588 Active Robbie Busby MD Active TEMAZEPAM 15 MG ORAL CAPS 1 TAB PO Q HS TEMAZEPAM 18589826999 Active Robbie Busby MD Active ALPRAZOLAM 2 MG ORAL TABS 1 TAB PO BID ALPRAZOLAM 77802319692 Active Robbie Busby MD Active FENOFIBRATE 145 MG TABS Take one by mouth daily FENOFIBRATE 40534685366 No Longer Active Robbie Busby MD Active SPIRONOLACTONE 50 MG TABS 1 tablet by mouth twice a day SPIRONOLACTONE 22441287511 No Longer Active Robbie Busby MD Active HYDRALAZINE HCL 25 MG TABS 1 tablet by mouth tid for hypertension HYDRALAZINE HCL 52114517098 No Longer Active Robbie Busby MD Active VIIBRYD 40 MG TABS take 1 tab po qday for depression. VILAZODONE HCL 15017846219 No Longer Active Robbie Busby MD Active TERBINAFINE HCL 250 MG TABS 1 tab po qday for foot infection 2014 TERBINAFINE HCL 38042006846 No Longer Active Robbie Busby MD Active GABAPENTIN 300 MG CAPS 1 po q hs for nerve pain GABAPENTIN 03921189367 Active Robbie Busby MD Active FLONASE 50 MCG/ACT SUSP 1 spray each nostril twice daily for allergies and runny nose FLUTICASONE PROPIONATE 50812630364 Active Robbie Busby MD Active CHERATUSSIN AC 100-10 MG/5ML ORAL SOLN 7.5 mL PO q 4-6 hrs PRN cough GUAIFENESIN-CODEINE 21385067840 No Longer Active Robbie Busby MD Active AZITHROMYCIN 250 MG ORAL TABS 2 tablets PO today---then, 1 tablet PO daily x 4 more days (and 1 optional refill) AZITHROMYCIN 04334937837 No Longer Active Robbie Busby MD Active NORVASC 10 MG TAB 1 tablet by mouth daily AMLODIPINE BESYLATE 94019489382 No Longer Active Alex ALVAREZ Active IMDUR 60 MG TAB CR take 1 tab po qday for blood pressure ISOSORBIDE MONONITRATE Active Robbie Busby MD Active ISOSORBIDE DINITRATE 30 MG TABS Take one by mouth daily ISOSORBIDE DINITRATE 10199783956 No Longer Active Robbie Busby MD Active VIIBRYD 40 MG TABS 1 TA B PO DAILY VILAZODONE HCL 70305521889 Active Robbie Busby MD Active LORATADINE 10 MG TABS 1 tablet by mouth daily for congestion and allergies. LORATADINE 42135887340 Active Robbie Busby MD Active ZITHROMAX 250 MG TAB 2 po today, then 1 po q days 2-5 AZITHROMYCIN 03379854662 No Longer Active Robbie Busby MD Active [id number] 0.3 MG/24HR PTWK apply 2 patches q week for HTN CLONIDINE HCL 55522420088 Active Robbie Busby MD Active NITROSTAT 0.4 MG SUBL PRN NITROGLYCERIN 55768189648 Active Robbie Busby MD Active DOXAZOSIN MESYLATE 4 MG TABS Take one by mouth daily DOXAZOSIN MESYLATE 63495357131 Active Erin Ady BOW MAKING MACHINE OPERATOR Active TOPROL XL 200 MG [id number] Take one by mouth daily METOPROLOL SUCCINATE 82817635249 Active Robbie Busby MD Active VENLAFAXINE HCL ER 150 MG [id number] Take one by mouth daily VENLAFAXINE HCL 86568825403 Active Robbie Busby MD Active LIPITOR 40 MG TABS Take one by mouth daily ATORVASTATIN CALCIUM 07470144676 Active Robbie Busby MD Active ISOSORBIDE DINITRATE 30 MG TABS Take one by mouth daily ISOSORBIDE DINITRATE 30 MG TABS 843781 ISOSORBIDE DINITRATE Inactive NORVASC 10 MG TAB 1 tablet by mouth daily NORVASC 10 MG TAB 296287 AMLODIPINE BESYLATE Inactive AZITHROMYCIN 250 MG ORAL TABS 2 tablets PO today---then, 1 tablet PO daily x 4 more days (and 1 optional refill) AZITHROMYCIN 250 MG ORAL TABS 7239063 AZITHROMYCIN Inactive CHERATUSSIN AC 100-10 MG/5ML ORAL SOLN 7.5 mL PO q 4-6 hrs PRN cough CHERATUSSIN AC 100-10 MG/5ML ORAL SOLN 332020 GUAIFENESIN- CODEINE Inactive VIIBRYD 40 MG TABS take 1 tab po qday for depression. VIIBRYD 40 MG TABS VILAZODONE HCL Inactive HYDRALAZINE HCL 25 MG TABS 1 tablet by mouth tid for hypertension HYDRALAZINE HCL 25 MG TABS 031495 HYDRALAZINE HCL Inactive SPIRONOLACTONE 50 MG TABS 1 tablet by mouth twice a day SPIRONOLACTONE 50 MG TABS 642711 SPIRONOLACTONE Inactive FENOFIBRATE 145 MG TABS Take one by mouth daily FENOFIBRATE 145 MG TABS 011411 FENOFIBRATE Inactive PROTONIX 40 MG SOLR 1 po qday for acid reflux PROTONIX 40 MG SOLR 399453 PANTOPRAZOLE SODIUM Inactive CEFDINIR 300 MG ORAL CAPS Take 1 cap po bid x 10 days CEFDINIR 300 MG ORAL CAPS 941743 CEFDINIR Inactive PREDNISONE 20 MG TAB 1 tablet twice daily for 2 days, then 1 tablet once daily for 2 days PREDNISONE 20 MG TAB 013887 PREDNISONE Inactive NYSTATIN 387795 UNIT/ML M/T SUSP 5mL po QID x 10 days NYSTATIN 118620 UNIT/ML M/T SUSP 970873 NYSTATIN Inactive BETADINE 10 % EXT SOLN wash with solution to treat follicultis BETADINE 10 % EXT SOLN 5623423 POVIDONE-IODINE Inactive TRILEPTAL 150 MG ORAL TABS 1 TAB PO Q HS TRILEPTAL 150 MG ORAL TABS 981188 OXCARBAZEPINE Inactive LAMISIL 125 MG ORAL PACK 1 TAB PO DAILY LAMISIL 125 MG ORAL PACK TERBINAFINE HCL Inactive HYDROCHLOROTHIAZIDE TABS Take one by mouth daily HYDROCHLOROTHIAZIDE TABS HYDROCHLOROTHIAZIDE TABS Inactive HYDROCODONE-ACETAMINOPHEN 5-325 MG TABS 1 tab by mouth BID prn back pain 2013 HYDROCODONE-ACETAMINOPHEN 5-325 MG TABS 683044 HYDROCODONE -ACETAMINOPHEN Inactive HYDRALAZINE HCL 50 MG ORAL TABS TWO BY MOUTH THREE TIMES DAILY HYDRALAZINE HCL 50 MG ORAL TABS 729294 HYDRALAZINE HCL Inactive LEVAQUIN 500 MG TAB 1 tablet by mouth daily for 7 days LEVAQUIN 500 MG TAB 382079 LEVOFLOXACIN Inactive SPIRONOLACTONE 25 MG TAB 4 tablets by mouth daily SPIRONOLACTONE 25 MG TAB 384143 SPIRONOLACTONE Inactive MECLIZINE HCL 25 MG TAB one 4 times a day as needed for dizziness MECLIZINE HCL 25 MG TAB 315773 MECLIZINE HCL Inactive CLONIDINE HCL 0.2 MG ORAL TABS 1 TAB BY MOUTH EVERY 8 HOURS 12/29 CLONIDINE HCL 0.2 MG ORAL TABS 272756 CLONIDINE HCL Inactive ZITHROMAX 250 MG TAB 2 po today, then 1 po q days 2-5 ZITHROMAX 250 MG TAB 9415313 AZITHROMYCIN Inactive TERBINAFINE HCL 250 MG TABS 1 tab po qday for foot infection 2014 TERBINAFINE HCL 250 MG TABS 409396 TERBINAFINE HCL Inactive KEFLEX 500 MG CAP 1 po TID x 10 days KEFLEX 500 MG CAP 087047 CEPHALEXIN Inactive BACTRIM DS 800-160 MG TAB 1 tab by mouth twice daily BACTRIM DS 800-160 MG TAB 423619 TRIMETHOPRIM-SULFAMETHOXAZOLE Inactive Advance Directives Directive Description Start [...] % 11.0-15.0 platelet count 185 THOUSAND/UL 10*3/mm3 026-784 5142/04/14 mean platelet volume 10.9 fL 7.5-12.5 Lab Report: HEPATITIS B SAB/Immune Status, RUBELLA IGG AB(Immune Status) - Serology rubella antibody, serum, IgG 2.06 Lab Report: LIPID PANEL, TSH/899, T4, FREE/866 - Chemistry cholesterol, serum 220 mg/dL 249-731 7573/04/14 HDL cholesterol, serum 30 mg/dL > OR=40 triglyceride, serum, fasting 466 mg/dL <150 LDL cholesterol, serum SEE NOTE mg/dL (calc) mg/dL <130 cholesterol/HDL ratio, serum 7.3 (calc) < OR=5.0 Lab Report: MICROALB/CREAT W/RATIO - Chemistry albumin/creatinine ratio, urine < 30 mg/g mg/g{creat} 0-29 Lab Report: MICROALB/CREAT W/RATIO - Lab microalbumin, urine 80 0-19 Lab Report: VITAMIN D, 25-HYDROXY/86216 - Chemistry vitamin D 25-hydroxy, serum 23 ng/mL 30-100 Encounters Code Encounter Date Provider Facility CPT-34710 Level 4 Est. Patient 12:00:49 FACTORY MANAGER Rober Rodríguez [facility] CPT-30966 Level 3 Est. Patient 09:16:37 CDT Robbie Busby MD [facility] CPT-39718 Level 3 Est. Patient 19:38:43 CDT Robbie Busby MD [facility] CPT-80366 Level 3 Est. Patient 11:53:38 CDT Robbie Busby MD [facility] CPT-82779 Level 4 Est. Patient 12:52:22 CDT Rober Rodríguez [facility] CPT-39579 Level 4 Est. Patient 22:55:17 CDT Robbie Busby MD [facility] CPT-08726 Level 3 Est. Patient 12:38:24 CDT Desmond Diaz DO [facility] CPT-74838 Level 4 Est. Patient 11:25:03 FACTORY MANAGER Robbie Busby MD [facility] CPT-86497 Level 4 Est. Patient 14:50:10 CDT Robbie Busby MD [facility] CPT-63664 Level 4 Est. Patient 23:30:43 CDT Robbie Busby MD [facility] CPT-65060 Level 4 Est. Patient 10:30:43 CDT Robbie Busby MD [facility] CPT-73315 Level 3 Est. Patient 17:08:12 CDT Alex Shaw [facility] CPT-75641 Level 4 Est. Patient 17:51:38 CDT Robbie Busby MD [facility] CPT-77088 Level 4 Est. Patient 14:00:21 CDT Robbie Busby MD [facility] CPT-19408 Level 4 Est. Patient 12:46:48 CDT Robbie Busby MD [facility] CPT-23255 Level 4 Est. Patient 13:34:33 CDT Robbie Busby MD [facility] CPT-12412 Level 4 Est. Patient 16:58:28 CDT Robbie Busby MD [facility] CPT-89205 Level 3 Est. Patient 19:36:53 CDT Alex Shaw [facility] CPT-15197 Level 3 Est. Patient 12:58:15 CDT Robbie Busby MD [facility] Procedures Code Procedure Name Date Entry Date Standard Description CPT-J0696 Rocephin 1000 mg (Ceftriaxone) 17:43:43 FACTORY MANAGER CPT-J1040 Depo Medrol 80 mg (Methyl Prednisolone Acetate) 17:43: 43 FACTORY MANAGER CPT-J1100 Decadron 8mg (Dexamethasone) 17:43:42 FACTORY MANAGER CPT-96052 Abx/Therapy Injection 17:43:42 FACTORY MANAGER CPT-06165 Abx/Therapy Injection 17:43:42 FACTORY MANAGER CPT-J1040 Depo Medrol 80 mg (Methyl Prednisolone Acetate) 09:43: 34 FACTORY MANAGER CPT-J1100 Decadron 8mg (Dexamethasone) 09:43:34 FACTORY MANAGER CPT-J0696 Rocephin 1gm Inj Solr 09:43:34 FACTORY MANAGER CPT-40556 Wound Culture - LAB USE ONLY 14:00:21 CDT CPT-I/D I/D Abscess 09:16:37 CDT CPT-36198 Venipuncture Draw Fee 15:20:23 CDT CPT-58179 Microalbumin - LAB USE ONLY 16:02:19 CDT CPT-90563 CBC - LAB USE ONLY 16:02:19 CDT CPT-47047 Venipuncture Draw Fee 16:02:19 CDT CPT-G0438 Initial Annual Wellness Exam 08:10:28 CDT CPT-32933 Venipuncture Draw Fee 13:07:17 CDT CPT-G0008 Administration of Influenza Virus Vaccine 16:09:59 CDT CPT-10314 Fluzone Quadrivalent Intramuscular Suspension 0.5 ML 16: 09:59 CDT CPT-11921 Spec Collection and Handling Fee 15:05:50 CDT
--- OUTSIDE RECORDS SUMMARY | 2018-04-18 14:24 | XMS REPORT | Clinical Summary ---
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 Desmond Diaz DO Other malignant secondary hypertension Tachycardia 785.0 Active Rober Rodríguez EDUCATION DIRECTOR Tachycardia, unspecified Insect bite, infected 919.5 Resolved Desmond Diaz DO Insect bite, nonvenomous, of other, multiple, and unspecified sites, infected Abscess, skin 682.9 Resolved Desmond Diaz DO Cellulitis and abscess of unspecified sites URI 465.9 Resolved Desmond Diaz DO Acute upper respiratory infections of unspecified site Hypertension 401.9 Active Rober Rodríguez EDUCATION DIRECTOR Unspecified essential hypertension Sinusitis - acute [...] Hypogonadism, low testosterone 257.2 Active Erin Garsia EDUCATION DIRECTOR Other testicular hypofunction Low back pain, chronic 724.2 Active Robbie Busby MD Lumbago Bronchitis-Acute 466.0 Inactive Desmond Howell Joe DO Acute bronchitis Polydipsia 783.5 Active Desmond Dante Joe DO Polydipsia Sinusitis ICD-461.9 Inactive Emily Atwood SENIOR INTERNAL AUDITOR 2017 Low back pain, acute ICD-724.2 Inactive Emily Atwood SENIOR INTERNAL AUDITOR Low back pain, chronic ICD-724.2 Inactive Emily Atwood SENIOR INTERNAL AUDITOR Bronchitis, acute ICD-466.0 Inactive Emily Atwood SENIOR INTERNAL AUDITOR Onychomycosis, toenails ICD-110.1 Inactive Emily Atwood SENIOR INTERNAL AUDITOR Dizziness ICD-780.4 Inactive Emily Atwood SENIOR INTERNAL AUDITOR 2017 Folliculitis ICD-704.8 Inactive Emily Atwood SENIOR INTERNAL AUDITOR Pharyngitis-Acute ICD-462 Inactive Emily Atwood SENIOR INTERNAL AUDITOR Fatigue ICD-780.79 Inactive Emily Atwood SENIOR INTERNAL AUDITOR 09/20 Hypertension, secondary, malignant ICD-405.09 Inactive Emily Atwood SENIOR INTERNAL AUDITOR Insect bite, infected ICD-919.5 Inactive Emily Atwood SENIOR INTERNAL AUDITOR Abscess, skin ICD-682.9 Inactive Emily Atwood SENIOR INTERNAL AUDITOR URI ICD-465.9 Inactive Emily Atwood SENIOR INTERNAL AUDITOR Sinusitis - acute ICD-461.9 Inactive Emily Atwood SENIOR INTERNAL AUDITOR Acute confusion ICD-293.0 Inactive Emily Atwood SENIOR INTERNAL AUDITOR Headache ICD-784.0 Inactive Emily Atwood SENIOR INTERNAL AUDITOR 09/20 Back pain ICD-724.5 Inactive Emily Atwood SENIOR INTERNAL AUDITOR 2017 Rib pain, right sided ICD-786.50 Inactive Emily Atwood SENIOR INTERNAL AUDITOR Myalgias ICD-729.1 Inactive Emily Atwood SENIOR INTERNAL AUDITOR 09/20 URI ICD-465.9 Inactive Eimly Atwood TANNA Bronchitis-Acute ICD-466.0 Inactive Desmond Diaz DO Medication List Medication Instructions Start Date Stop Date Generic Name NDC Status Provider Patient Instruction PREDNISONE 20 MG ORAL TABLET two tabs by mouth today, then one tab by mouth days two and three PREDNISONE 90017620256 Active Desmond Diaz DO Active AZITHROMYCIN 250 MG ORAL TABLET 2 po qd x 1 day, then 1 po qd x 4 days 09/20 AZITHROMYCIN 63136514269 No Longer Active Desmond Diaz DO Active TOPIRAMATE 50 MG ORAL TABLET take 1 tab po BID for migraines. TOPIRAMATE 78558549852 No Longer Active Desmond Diaz DO Active CYCLOBENZAPRINE HCL 10 MG ORAL TABLET 1 po TID PRN muscle spasm/pain for 10 days CYCLOBENZAPRINE HCL 43787905741 No Longer Active Desmond Diaz DO Active GUAIFENESIN ER 600 MG ORAL TABLET EXTENDED RELEASE 12 HOUR 1 tab po q am 2016 GUAIFENESIN 00256429833 No Longer Active Robbie Busby MD Active DIVALPROEX SODIUM ER 500 MG ORAL TABLET EXTENDED RELEASE 24 HOUR Once daily DIVALPROEX SODIUM 94904182880 Active Robbie Busby MD Active DEPO-TESTOSTERONE 200 MG/ML INTRAMUSCULAR SOLUTION 1 IM Injections every 2 weeks for low testosterone TESTOSTERONE CYPIONATE 65550806010 Active Zulema Blank LPN Active FLUTICASONE PROPIONATE 50 MCG/ACT NASAL SUSPENSION 2 sprays per nostril bid for 1 week, then 1 spray bid FLUTICASONE PROPIONATE 24717294830 Active Rober Rodríguez APRN Active HYDRALAZINE HCL 25 MG ORAL TABLET Take 1 tab BID. HYDRALAZINE HCL 59077382379 Active Robre Rodríguez APRN Active VITAMIN D3 71162 UNIT ORAL TABLET 2 po weekly CHOLECALCIFEROL 87667760582 Active Robbie Busby MD Active OXYCODONE HCL ER 10 MG ORAL TABLET ER 12 HOUR ABUSE-DETERRENT 1 tab po 3 times qd. OXYCODONE HCL 45557078405 Active Robbie Busby MD Active NITROSTAT 0.4 MG SUBLINGUAL TABLET SUBLINGUAL PRN NITROGLYCERIN 56620972973 No Longer Active Robbie Busby MD Active LORATADINE 10 MG ORAL TABLET 1 tablet by mouth daily for congestion and allergies. LORATADINE 47466637760 No Longer Active Robbie Busby MD Active FLONASE 50 MCG/ACT NASAL SUSPENSION 1 spray each nostril twice daily for allergies and runny nose FLUTICASONE PROPIONATE 87434033437 No Longer Active Robbie Busby MD Active FIORICET 50-300-40 MG ORAL CAPSULE take 1 tab po qday prn migraines. [id number]-[id number]-MCTCNVDC 34782839879 No Longer Active Robbie Busby MD Active VITAMIN D3 87051 UNIT ORAL CAPSULE 2 CAPS PO WEEKLY CHOLECALCIFEROL 19403168719 No Longer Active Robbie Busby MD Active CYCLOBENZAPRINE HCL 10 MG ORAL TABLET 1 tablet by mouth three times daily as needed for muscle spasm/pain for 10 days CYCLOBENZAPRINE HCL 91420896544 No Longer Active Robbie Busby MD Active PREDNISONE 20 MG ORAL TABLET take 3 tabs daily for 3 days, 2 tabs daily for 3 days, 1 tab daily for 3 days, 1/2 tab daily for 4 days PREDNISONE 68760794766 No Longer Active Erin Garsia APRN Active CLONIDINE HCL 0.2 MG ORAL TABLET 1 TAB BY MOUTH EVERY 8 HOURS CLONIDINE HCL 28004297203 No Longer Active Erin Garsia APRN Active MECLIZINE HCL 25 MG ORAL TABLET one 4 times a day as needed for dizziness MECLIZINE HCL 73900862221 No Longer Active Erin Garsia APRN Active SPIRONOLACTONE 25 MG ORAL TABLET 4 tablets by mouth daily SPIRONOLACTONE 87929743744 No Longer Active Erin Garsia APRN Active LEVAQUIN 500 MG ORAL TABLET 1 tablet by mouth daily for 7 days LEVOFLOXACIN 02319881250 No Longer Active Erin Garsia APRN Active BACTRIM DS 800-160 MG ORAL TABLET 1 tab by mouth twice daily 2015 TRIMETHOPRIM-SULFAMETHOXAZOLE 18396519405 No Longer Active Robbie Busby MD Active HYDRALAZINE HCL 50 MG ORAL TABLET TWO BY MOUTH THREE TIMES DAILY HYDRALAZINE HCL 91496265777 No Longer Active Jillina Frazell EDUCATION DIRECTOR Active HYDROCODONE-ACETAMINOPHEN 5-325 MG ORAL TABLET 1 tab by mouth BID prn back pain HYDROCODONE-ACETAMINOPHEN 85876302072 No Longer Active Jillina Frazell EDUCATION DIRECTOR Active HYDROCHLOROTHIAZIDE TABLET Take one by mouth daily HYDROCHLOROTHIAZIDE TABS 77250960912 No Longer Active Jillina Frazell EDUCATION DIRECTOR Active LAMISIL 125 MG ORAL PACKET 1 TAB PO DAILY TERBINAFINE HCL 43177679911 No Longer Active Jillina Frazell EDUCATION DIRECTOR Active TRILEPTAL 150 MG ORAL TABLET 1 TAB PO Q HS OXCARBAZEPINE 98302442420 No Longer Active Jillina Frazell EDUCATION DIRECTOR Active BETADINE 10 % EXTERNAL SOLUTION wash with solution to treat follicultis 07/29 POVIDONE-IODINE 70632925730 No Longer Active Jillina Frazell EDUCATION DIRECTOR Active NYSTATIN 081196 UNIT/ML MOUTH/THROAT SUSPENSION 5mL po QID x 10 days NYSTATIN 37360555533 No Longer Active Erin Garsia APRN Active PREDNISONE 20 MG ORAL TABLET 1 tablet twice daily for 2 days, then 1 tablet once daily for 2 days PREDNISONE 05170145293 No Longer Active Robbie Busby MD Active CEFDINIR 300 MG ORAL CAPSULE Take 1 cap po bid x 10 days CEFDINIR 79985176757 No Longer Active Robbie Busby MD Active AMLODIPINE BESYLATE 10 MG ORAL TABLET 1 tablet by mouth daily AMLODIPINE BESYLATE 87091021343 Active Robbie Busby MD Active CARVEDILOL 25 MG ORAL TABLET 1 & 1/2 TAB po BID CARVEDILOL 56425589052 Active Robbie Busby MD Active NEXIUM 40 MG ORAL CAPSULE DELAYED RELEASE 1 cap by mouth daily ESOMEPRAZOLE MAGNESIUM 64446516586 Active Robbie Busby MD Active PROTONIX 40 MG INTRAVENOUS SOLUTION RECONSTITUTED 1 po qday for acid reflux PANTOPRAZOLE SODIUM 53062454085 No Longer Active Gali Raida Active KEFLEX 500 MG ORAL CAPSULE 1 po TID x 10 days CEPHALEXIN 63456537215 No Longer Active Robbie Busby MD Active TEMAZEPAM 15 MG ORAL CAPSULE 1 TAB PO Q HS TEMAZEPAM 16531697907 Active Robbie Busby MD Active ALPRAZOLAM 2 MG ORAL TABLET 1 TAB PO BID ALPRAZOLAM 35888106991 Active Robbie Busby MD Active FENOFIBRATE 145 MG ORAL TABLET Take one by mouth daily FENOFIBRATE 68750991678 No Longer Active Robbie Busby MD Active SPIRONOLACTONE 50 MG ORAL TABLET 1 tablet by mouth twice a day SPIRONOLACTONE 07047625392 No Longer Active Robbie Busby MD Active HYDRALAZINE HCL 25 MG ORAL TABLET 1 tablet by mouth tid for hypertension 2013 HYDRALAZINE HCL 01622301500 No Longer Active Robbie Busby MD Active VIIBRYD 40 MG ORAL TABLET take 1 tab po qday for depression. 2014 VILAZODONE HCL 72845581940 No Longer Active Robbie Busby MD Active TERBINAFINE HCL 250 MG ORAL TABLET 1 tab po qday for foot infection TERBINAFINE HCL 14943922586 No Longer Active Robbie Busby MD Active GABAPENTIN 300 MG ORAL CAPSULE 1 po q hs for nerve pain GABAPENTIN 11763357812 Active Robbie Busby MD Active CHERATUSSIN AC 100-10 MG/5ML ORAL SOLUTION 7.5 mL PO q 4-6 hrs PRN cough 2014 GUAIFENESIN-CODEINE 04765705018 No Longer Active Robbie Busby MD Active AZITHROMYCIN 250 MG ORAL TABLET 2 tablets PO today---then, 1 tablet PO daily x 4 more days (and 1 optional refill) AZITHROMYCIN 54800483149 No Longer Active Robbie Busby MD Active NORVASC 10 MG ORAL TABLET 1 tablet by mouth daily AMLODIPINE BESYLATE 86640790212 No Longer Active Alex ALVAREZ Active IMDUR 60 MG ORAL TABLET EXTENDED RELEASE 24 HOUR take 1 tab po qday for blood pressure ISOSORBIDE MONONITRATE 32755468108 Active Robbie Busby MD Active ISOSORBIDE DINITRATE 30 MG ORAL TABLET Take one by mouth daily ISOSORBIDE DINITRATE 73481725664 No Longer Active Robbie Busby MD Active VIIBRYD 40 MG ORAL TABLET 1 TA B PO DAILY VILAZODONE HCL 60831361241 Active Robbie Busby MD Active ZITHROMAX 250 MG ORAL TABLET 2 po today, then 1 po q days 2-5 AZITHROMYCIN 99043644132 No Longer Active Robbie Busby MD Active KXHTOXUT-USB-5 0.3 MG/24HR TRANSDERMAL PATCH WEEKLY apply 2 patches q week for HTN CLONIDINE HCL 62527962377 Active Robbie Busby MD Active DOXAZOSIN MESYLATE 4 MG ORAL TABLET Take one by mouth daily DOXAZOSIN MESYLATE 29741385106 Active Robbie Busby MD Active TOPROL XL 200 MG ORAL TABLET EXTENDED RELEASE 24 HOUR Take one by mouth daily METOPROLOL SUCCINATE 62209368554 Active Robbie Busby MD Active VENLAFAXINE HCL ER 150 MG ORAL TABLET EXTENDED RELEASE 24 HOUR Take one by mouth daily VENLAFAXINE HCL 20955373191 Active Robbie Busby MD Active LIPITOR 40 MG ORAL TABLET Take one by mouth daily ATORVASTATIN CALCIUM 52823733352 Active Robbie Busby MD Active ISOSORBIDE DINITRATE 30 MG ORAL TABLET Take one by mouth daily ISOSORBIDE DINITRATE 30 MG ORAL TABLET 935586 ISOSORBIDE DINITRATE Inactive NORVASC 10 MG ORAL TABLET 1 tablet by mouth daily NORVASC 10 MG ORAL TABLET 859452 AMLODIPINE BESYLATE Inactive AZITHROMYCIN 250 MG ORAL TABLET 2 tablets PO today---then, 1 tablet PO daily x 4 more days (and 1 optional refill) AZITHROMYCIN 250 MG ORAL TABLET 408393 AZITHROMYCIN Inactive CHERATUSSIN AC 100-10 MG/5ML ORAL SOLUTION 7.5 mL PO q 4-6 hrs PRN cough 2014 CHERATUSSIN AC 100-10 MG/5ML ORAL SOLUTION 433325 GUAIFENESIN-CODEINE Inactive VIIBRYD 40 MG ORAL TABLET take 1 tab po qday for depression. 2014 VIIBRYD 40 MG ORAL TABLET VILAZODONE HCL Inactive HYDRALAZINE HCL 25 MG ORAL TABLET 1 tablet by mouth tid for hypertension 2013 HYDRALAZINE HCL 25 MG ORAL TABLET 006592 HYDRALAZINE HCL Inactive SPIRONOLACTONE 50 MG ORAL TABLET 1 tablet by mouth twice a day SPIRONOLACTONE 50 MG ORAL TABLET 170240 SPIRONOLACTONE Inactive FENOFIBRATE 145 MG ORAL TABLET Take one by mouth daily FENOFIBRATE 145 MG ORAL TABLET 404013 FENOFIBRATE Inactive PROTONIX 40 MG INTRAVENOUS SOLUTION RECONSTITUTED 1 po qday for acid reflux PROTONIX 40 MG INTRAVENOUS SOLUTION RECONSTITUTED 362842 PANTOPRAZOLE SODIUM Inactive CEFDINIR 300 MG ORAL CAPSULE Take 1 cap po bid x 10 days CEFDINIR 300 MG ORAL CAPSULE 897629 CEFDINIR Inactive PREDNISONE 20 MG ORAL TABLET 1 tablet twice daily for 2 days, then 1 tablet once daily for 2 days PREDNISONE 20 MG ORAL TABLET 429912 PREDNISONE Inactive NYSTATIN 869950 UNIT/ML MOUTH/THROAT SUSPENSION 5mL po QID x 10 days NYSTATIN 126542 UNIT/ML MOUTH/THROAT SUSPENSION 585906 NYSTATIN Inactive BETADINE 10 % EXTERNAL SOLUTION wash with solution to treat follicultis 07/29 BETADINE 10 % EXTERNAL SOLUTION 3565990 POVIDONE-IODINE Inactive TRILEPTAL 150 MG ORAL TABLET 1 TAB PO Q HS TRILEPTAL 150 MG ORAL TABLET 023654 OXCARBAZEPINE Inactive LAMISIL 125 MG ORAL PACKET 1 TAB PO DAILY LAMISIL 125 MG ORAL PACKET TERBINAFINE HCL Inactive HYDROCHLOROTHIAZIDE TABLET Take one by mouth daily HYDROCHLOROTHIAZIDE TABLET HYDROCHLOROTHIAZIDE TABS Inactive HYDROCODONE-ACETAMINOPHEN 5-325 MG ORAL TABLET 1 tab by mouth BID prn back pain HYDROCODONE-ACETAMINOPHEN 5-325 MG ORAL TABLET 534647 HYDROCODONE-ACETAMINOPHEN Inactive HYDRALAZINE HCL 50 MG ORAL TABLET TWO BY MOUTH THREE TIMES DAILY HYDRALAZINE HCL 50 MG ORAL TABLET 364532 HYDRALAZINE HCL Inactive LEVAQUIN 500 MG ORAL TABLET 1 tablet by mouth daily for 7 days LEVAQUIN 500 MG ORAL TABLET 985585 LEVOFLOXACIN Inactive SPIRONOLACTONE 25 MG ORAL TABLET 4 tablets by mouth daily SPIRONOLACTONE 25 MG ORAL TABLET 643181 SPIRONOLACTONE Inactive MECLIZINE HCL 25 MG ORAL TABLET one 4 times a day as needed for dizziness MECLIZINE HCL 25 MG ORAL TABLET 960451 MECLIZINE HCL Inactive CLONIDINE HCL 0.2 MG ORAL TABLET 1 TAB BY MOUTH EVERY 8 HOURS CLONIDINE HCL 0.2 MG ORAL TABLET 837725 CLONIDINE HCL Inactive CYCLOBENZAPRINE HCL 10 MG ORAL TABLET 1 tablet by mouth three times daily as needed for muscle spasm/pain for 10 days CYCLOBENZAPRINE HCL 10 MG ORAL TABLET 844600 CYCLOBENZAPRINE HCL Inactive VITAMIN D3 27342 UNIT ORAL CAPSULE 2 CAPS PO WEEKLY VITAMIN D3 37320 UNIT ORAL CAPSULE CHOLECALCIFEROL Inactive FIORICET 50-300-40 MG ORAL CAPSULE take 1 tab po qday prn migraines. FIORICET 50-300-40 MG ORAL CAPSULE 306805 BUTALBITAL-APAP- CAFFEINE Inactive FLONASE 50 MCG/ACT NASAL SUSPENSION 1 spray each nostril twice daily for allergies and runny nose FLONASE 50 MCG/ACT NASAL SUSPENSION 5386283 FLUTICASONE PROPIONATE Inactive LORATADINE 10 MG ORAL TABLET 1 tablet by mouth daily for congestion and allergies. LORATADINE 10 MG ORAL TABLET 416051 LORATADINE Inactive NITROSTAT 0.4 MG SUBLINGUAL TABLET SUBLINGUAL PRN NITROSTAT 0.4 MG SUBLINGUAL TABLET SUBLINGUAL 489623 NITROGLYCERIN Inactive GUAIFENESIN ER 600 MG ORAL TABLET EXTENDED RELEASE 12 HOUR 1 tab po q am 2016 GUAIFENESIN ER 600 MG ORAL TABLET EXTENDED RELEASE 12 HOUR GUAIFENESIN Inactive CYCLOBENZAPRINE HCL 10 MG ORAL TABLET 1 po TID PRN muscle spasm/pain for 10 days CYCLOBENZAPRINE HCL 10 MG ORAL TABLET 287839 CYCLOBENZAPRINE HCL Inactive TOPIRAMATE 50 MG ORAL TABLET take 1 tab po BID for migraines. TOPIRAMATE 50 MG ORAL TABLET 080120 TOPIRAMATE Inactive ZITHROMAX 250 MG ORAL TABLET 2 po today, then 1 po q days 2-5 ZITHROMAX 250 MG ORAL TABLET 812944 AZITHROMYCIN Inactive TERBINAFINE HCL 250 MG ORAL TABLET 1 tab po qday for foot infection TERBINAFINE HCL 250 MG ORAL TABLET 205359 TERBINAFINE HCL Inactive KEFLEX 500 MG ORAL CAPSULE 1 po TID x 10 days KEFLEX 500 MG ORAL CAPSULE 817001 CEPHALEXIN Inactive BACTRIM DS 800-160 MG ORAL TABLET 1 tab by mouth twice daily 2015 BACTRIM DS 800-160 MG ORAL TABLET 119064 TRIMETHOPRIM- SULFAMETHOXAZOLE Inactive PREDNISONE 20 MG ORAL TABLET take 3 tabs daily for 3 days, 2 tabs daily for 3 days, 1 tab daily for 3 days, 1/2 tab daily for 4 days PREDNISONE 20 MG ORAL TABLET 957532 PREDNISONE Inactive AZITHROMYCIN 250 MG ORAL TABLET 2 po qd x 1 day, then 1 po qd x 4 days 09/20 AZITHROMYCIN 250 MG ORAL TABLET 559386 AZITHROMYCIN Inactive Advance Directives Directive Description Start [...] AUTO - Chemistry sodium, serum 142 mmol/L 647-103 8462/07/17 carbon dioxide, venous blood 28.2 mmol/L 21.0-32.0 [...] % 11.0-15.0 platelet count 185 THOUSAND/UL 10*3/mm3 621-585 1109/04/14 mean platelet volume 10.9 fL 7.5-12.5 Lab Report: HGBA1C, Basic Metabolic Panel - Chemistry hemoglobin A1C, blood, as % of total hemoglobin 6.9 % 4.3-6.0 sodium, serum 139 mmol/L 654-733 8255/01/04 potassium, serum 3.9 mmol/L 3.5-5.2 chloride, serum 103 mmol/L 98-107 carbon dioxide, venous blood 26.9 mmol/L 21.0-32.0 blood glucose 106 mg/dL 65-110 calcium, serum 9.0 mg/dL 8.5-10.1 urea nitrogen, blood 20 mg/dL 7-18 creatinine, serum 1.46 mg/dL 0.60-1.30 Lab Report: LIPID PANEL, TSH/899, T4, FREE/866 - Chemistry cholesterol, serum 220 mg/dL 801-222 7443/04/14 HDL cholesterol, serum 30 mg/dL > OR=40 [...] 1.80 ng/mL 0.00-4.00 Lab Report: VITAMIN D, 25-HYDROXY/06358 - Chemistry vitamin D 25-hydroxy, serum 25 ng/mL 30-100 Office Visit: Confusion, dizziness after fall - Basic LDL target level 130 mg/dL Office Visit: Confusion, dizziness after fall - Chemistry HDL cholesterol, serum, target level 40 mg/dL triglyceride, target level 150 mg/dL cholesterol, target level 200 mg/dL Encounters Code Encounter Date Provider Facility CPT-68077 Level 4 Est. Patient 15:23:44 [employer] WORK[employer]OV[employer] Desmond Diaz DO [facility] CPT-36028 Level 3 Est. Patient 15:40:49 CDT Robbie Busby MD [facility] CPT-43261 Level 4 Est. Patient 15:18:19 CDT Robbie Busby MD [facility] CPT-87352 Level 3 Est. Patient 09:00:37 CDT Rober Rodríguez [facility] CPT-18527 Level 3 Est. Patient 16:07:10 CDT Robbie Busby MD [facility] CPT-87961 Level 4 Est. Patient 11:56:16 CDT Erin Garsia [facility] CPT-41007 Level 3 Est. Patient 17:48:02 CDT Robbie Busby MD [facility] CPT-72294 Level 4 Est. Patient 12:00:49 [employer] Rober Rodríguez [facility] CPT-52290 Level 3 Est. Patient 09:16:37 CDT Robbie Busby MD [facility] CPT-93086 Level 3 Est. Patient 19:38:43 CDT Robbie Busby MD [facility] CPT-05149 Level 3 Est. Patient 11:53:38 CDT Robbie Busby MD [facility]-05795 Level 4 Est. Patient 12:52:22 CDT Rober Rodríguez APRN [facility]-74363 Level 4 Est. Patient 22:55:17 CDT Robbie Busby MD [facility]-41418 Level 3 Est. Patient 12:38:24 CDT Desmond Diaz DO [facility]-36019 Level 4 Est. Patient 11:25:03 [employer] Robbie Busby MD [facility]-58237 Level 4 Est. Patient 14:50:10 CDT Robbie Busby MD [facility]-03885 Level 4 Est. Patient 23:30:43 CDT Robbie Busby MD [facility]-68673 Level 4 Est. Patient 10:30:43 CDT Robbie Busby MD [facility] CPT-37715 Level 3 Est. Patient 17:08:12 CDT Alex ALVAREZ [facility]-06842 Level 4 Est. Patient 17:51:38 CDT Robbie Busby MD [facility]-69811 Level 4 Est. Patient 14:00:21 CDT Robbie Busby MD [facility]-87625 Level 4 Est. Patient 12:46:48 CDT Robbie Busby MD [facility]-59625 Level 4 Est. Patient 13:34:33 CDT Robbie Busby MD [facility]-70164 Level 4 Est. Patient 16:58:28 CDT Robbie Busby MD [facility]-28163 Level 3 Est. Patient 19:36:53 CDT Alex ALVAREZ [facility] CPT-60977 Level 3 Est. Patient 12:58:15 CDT Robbie Busby MD [facility] Procedures Code Procedure Name Date Entry Date Standard Description CPT-J1071 Depo Testosterone 200mg 15:33:58 [employer] CPT-27643 Abx/Therapy Injection 15:33:58 [facility] CPT-J1071 Depo Testosterone 200mg 09:38:36 [employer] CPT-42000 Abx/Therapy Injection 09:38:36 [facility] CPT-J1071 Depo Testosterone 200mg 10:22:56 [employer] CPT-43641 Abx/Therapy Injection 10:22:56 [employer] CPT-J1071 Depo Testosterone 200mg 15:40:23 CDT CPT-93818 Abx/Therapy Injection 15:40:23 CDT CPT-J1071 Depo Testosterone 200mg 14:20:43 CDT CPT-51926 Abx/Therapy Injection 14:20:43 CDT CPT-J1071 Depo Testosterone 200mg 14:17:22 CDT CPT-06267 Abx/Therapy Injection 14:17:22 CDT CPT-J1071 Depo Testosterone 200mg 09:03:53 CDT CPT-22503 Abx/Therapy Injection 09:03:53 CDT CPT-G0439 [facility] Annual Wellness Exam 16:47:44 CDT CPT-J1071 Depo Testosterone 200mg 09:06:28 CDT CPT-26253 Abx/Therapy Injection 09:06:28 CDT CPT-J1071 Depo Testosterone 200mg 08:30:01 CDT CPT-80959 Abx/Therapy Injection 08:30:01 CDT CPT-J1071 Depo Testosterone 200mg 08:24:00 CDT CPT-91922 Abx/Therapy Injection 08:24:00 CDT CPT-02623 Venipuncture Draw Fee 14:39:06 CDT CPT-78468 Ribs unilateral 2V - XRAY USE ONLY 12:10:11 CDT CPT-65407 First Vx - Ix admin for Medicare patients 16:32:53 CDT CPT-38706 Boostrix Intramuscular Suspension 5-2.5-18.5 16:32:53 CDT CPT-83056 TB Skin Test 11:42:28 CDT CPT-87675 Tdap 7yrs or > 11:42:28 CDT CPT-J0696 Rocephin 1000 mg (Ceftriaxone) 17:43:43 [employer] CPT-J1040 Depo Medrol 80 mg (Methyl Prednisolone Acetate) 17:43: 43 [employer] CPT-J1100 Decadron 8mg (Dexamethasone) 17:43:42 [employer] CPT-85422 Abx/Therapy Injection 17:43:42 [employer] CPT-27241 Abx/Therapy Injection 17:43:42 [employer] CPT-J1040 Depo Medrol 80 mg (Methyl Prednisolone Acetate) 09:43: 34 [employer] CPT-J1100 Decadron 8mg (Dexamethasone) 09:43:34 [employer] CPT-J0696 Rocephin 1gm Inj Solr 09:43:34 [employer] CPT-41905 Wound Culture - LAB USE ONLY 14:00:21 CDT CPT-I/D I/D Abscess 09:16:37 CDT CPT-78123 Venipuncture Draw Fee 15:20:23 CDT CPT-30057 Microalbumin - LAB USE ONLY 16:02:19 CDT CPT-66861 CBC - LAB USE ONLY 16:02:19 CDT CPT-90807 Venipuncture Draw Fee 16:02:19 CDT CPT-G0438 Initial Annual Wellness Exam 08:10:28 CDT CPT-22257 Venipuncture Draw Fee 13:07:17 CDT CPT-G0008 Administration of Influenza Virus Vaccine 16:09:59 CDT CPT-04675 Fluzone Quadrivalent Intramuscular Suspension 0.5 ML 16: 09:59 CDT CPT-33016 Spec Collection and Handling Fee 15:05:50 CDT
--- OUTSIDE RECORDS SUMMARY | 2018-04-18 14:25 | XMS REPORT | Clinical Summary ---
Author Author Admin, [facility] Organization [facility] Address Unknown Phone [...] Name ND Status Provider Patient Instruction NYSTATIN 543239 UNIT/ML M/T SUSP 5mL po QID x 10 days NYSTATIN 42132700918 No Longer Active Erin Garsia APRN Active PREDNISONE 20 MG TAB 1 tablet twice daily for 2 days, then 1 tablet once daily for 2 days PREDNISONE 94322367140 No Longer Active Robbie Busby MD Active CEFDINIR 300 MG ORAL CAPS Take 1 cap po bid x 10 days CEFDINIR 50944191306 No Longer Active Robbie Busby MD Active AMLODIPINE BESYLATE 10 MG TABS 1 tablet by mouth daily AMLODIPINE BESYLATE 69168192046 Active Robbie Busby MD Active CARVEDILOL 25 MG TABS 1 & 1/2 TAB po BID CARVEDILOL 41289541450 Active Robbie Busby MD Active VITAMIN D3 03431 UNIT CAPS 2 CAPS PO WEEKLY CHOLECALCIFEROL 53660525433 Active Erin Garsia FIELD SALES EXECUTIVE Active NEXIUM 40 MG CPDR 1 cap by mouth daily ESOMEPRAZOLE MAGNESIUM 68505437870 Active Galileonila Negro Active PROTONIX 40 MG SOLR 1 po qday for acid reflux PANTOPRAZOLE SODIUM 04941388870 No Longer Active Gali Raida Active BETADINE 10 % EXT SOLN wash with solution to treat follicultis POVIDONE-IODINE 69665819988 Active Robbie Busby MD Active KEFLEX 500 MG CAP 1 po TID x 10 days CEPHALEXIN 12533310325 No Longer Active Robbie Busby MD Active FIORICET 50-300-40 MG ORAL CAPS take 1 tab po qday prn migraines. [id number] 64545914166 Active Robbie Busby MD Active TOPIRAMATE 50 MG ORAL TABS take 1 tab po BID for migraines. TOPIRAMATE 46780750209 Active Robbie Busby MD Active HYDRALAZINE HCL 50 MG ORAL TABS TWO BY MOUTH THREE TIMES DAILY HYDRALAZINE HCL 25004783613 Active Robbie Busby MD Active MECLIZINE HCL 25 MG TAB one 4 times a day as needed for dizziness MECLIZINE HCL 89304628113 Active Robbie Busby MD Active TRILEPTAL 150 MG ORAL TABS 1 TAB PO Q HS OXCARBAZEPINE 63191397596 Active Robbie Busby MD Active TEMAZEPAM 15 MG ORAL CAPS 1 TAB PO Q HS TEMAZEPAM 97652225468 Active Robbie Busby MD Active ALPRAZOLAM 2 MG ORAL TABS 1 TAB PO BID ALPRAZOLAM 54579594152 Active Robbie Busby MD Active FENOFIBRATE 145 MG TABS Take one by mouth daily FENOFIBRATE 37930092887 No Longer Active Robbie Busby MD Active LAMISIL 125 MG ORAL PACK 1 TAB PO DAILY TERBINAFINE HCL 72251386793 Active Robbie Busby MD Active SPIRONOLACTONE 50 MG TABS 1 tablet by mouth twice a day SPIRONOLACTONE 19186390905 No Longer Active Robbie Busby MD Active HYDRALAZINE HCL 25 MG TABS 1 tablet by mouth tid for hypertension HYDRALAZINE HCL 20542496617 No Longer Active Robbie Busby MD Active VIIBRYD 40 MG TABS take 1 tab po qday for depression. VILAZODONE HCL 78166509406 No Longer Active Robbie Busby MD Active TERBINAFINE HCL 250 MG TABS 1 tab po qday for foot infection 2014 TERBINAFINE HCL 95430647972 No Longer Active Robbie Busby MD Active GABAPENTIN 300 MG CAPS 1 po q hs for nerve pain GABAPENTIN 22687430582 Active Robbie Busby MD Active FLONASE 50 MCG/ACT SUSP 1 spray each nostril twice daily for allergies and runny nose FLUTICASONE PROPIONATE 03704420933 Active Robbie Busby MD Active CHERATUSSIN AC 100-10 MG/5ML ORAL SOLN 7.5 mL PO q 4-6 hrs PRN cough GUAIFENESIN-CODEINE 12647189886 No Longer Active Robbie Busby MD Active AZITHROMYCIN 250 MG ORAL TABS 2 tablets PO today---then, 1 tablet PO daily x 4 more days (and 1 optional refill) AZITHROMYCIN 02075508782 No Longer Active Robbie Busby MD Active CLONIDINE HCL 0.2 MG ORAL TABS 1 TAB BY MOUTH EVERY 8 HOURS CLONIDINE HCL 24310065515 Active Robbie Busby MD Active HYDROCHLOROTHIAZIDE TABS Take one by mouth daily HYDROCHLOROTHIAZIDE TABS 87889328793 Active Alex ALVAREZ Active NORVASC 10 MG TAB 1 tablet by mouth daily AMLODIPINE BESYLATE 83018480839 No Longer Active Alex ALVAREZ Active IMDUR 60 MG TAB CR take 1 tab po qday for blood pressure ISOSORBIDE MONONITRATE Active Robbie Busby MD Active ISOSORBIDE DINITRATE 30 MG TABS Take one by mouth daily ISOSORBIDE DINITRATE 17435054043 No Longer Active Robbie Busby MD Active VIIBRYD 40 MG TABS 1 TA B PO DAILY VILAZODONE HCL 08290359864 Active Erin Garsia APRN Active LORATADINE 10 MG TABS 1 tablet by mouth daily for congestion and allergies. LORATADINE 60539162046 Active Robbie Busby MD Active ZITHROMAX 250 MG TAB 2 po today, then 1 po q days 2-5 AZITHROMYCIN 95301038129 No Longer Active Robbie Busby MD Active HYDROCODONE-ACETAMINOPHEN 5-325 MG TABS 1 tab by mouth BID prn back pain 2013 HYDROCODONE-ACETAMINOPHEN 73123461429 Active Robbie Busby MD Active [id number] 0.3 MG/24HR PTWK apply 2 patches q week for HTN CLONIDINE HCL 70901711367 Active Robbie Busby MD Active NITROSTAT 0.4 MG SUBL PRN NITROGLYCERIN 66894977444 Active Robbie Busby MD Active DOXAZOSIN MESYLATE 4 MG TABS Take one by mouth daily DOXAZOSIN MESYLATE 40474181114 Active Robbie Busby MD Active TOPROL XL 200 MG [id number]-CBC Take one by mouth daily METOPROLOL SUCCINATE 57482520436 Active Robbie Busby MD Active VENLAFAXINE HCL ER 150 MG [id number] Take one by mouth daily VENLAFAXINE HCL 94884891076 Active Robbie Busby MD Active LIPITOR 40 MG TABS Take one by mouth daily ATORVASTATIN CALCIUM 44098221709 Active Robbie Busby MD Active ISOSORBIDE DINITRATE 30 MG TABS Take one by mouth daily ISOSORBIDE DINITRATE 30 MG TABS 999532 ISOSORBIDE DINITRATE Inactive NORVASC 10 MG TAB 1 tablet by mouth daily NORVASC 10 MG TAB 262627 AMLODIPINE BESYLATE Inactive AZITHROMYCIN 250 MG ORAL TABS 2 tablets PO today---then, 1 tablet PO daily x 4 more days (and 1 optional refill) AZITHROMYCIN 250 MG ORAL TABS 0267266 AZITHROMYCIN Inactive CHERATUSSIN AC 100-10 MG/5ML ORAL SOLN 7.5 mL PO q 4-6 hrs PRN cough CHERATUSSIN AC 100-10 MG/5ML ORAL SOLN 452184 GUAIFENESIN- CODEINE Inactive VIIBRYD 40 MG TABS take 1 tab po qday for depression. VIIBRYD 40 MG TABS VILAZODONE HCL Inactive HYDRALAZINE HCL 25 MG TABS 1 tablet by mouth tid for hypertension HYDRALAZINE HCL 25 MG TABS 416763 HYDRALAZINE HCL Inactive SPIRONOLACTONE 50 MG TABS 1 tablet by mouth twice a day SPIRONOLACTONE 50 MG TABS 741197 SPIRONOLACTONE Inactive FENOFIBRATE 145 MG TABS Take one by mouth daily FENOFIBRATE 145 MG TABS 979342 FENOFIBRATE Inactive PROTONIX 40 MG SOLR 1 po qday for acid reflux PROTONIX 40 MG SOLR 216739 PANTOPRAZOLE SODIUM Inactive CEFDINIR 300 MG ORAL CAPS Take 1 cap po bid x 10 days CEFDINIR 300 MG ORAL CAPS 729704 CEFDINIR Inactive PREDNISONE 20 MG TAB 1 tablet twice daily for 2 days, then 1 tablet once daily for 2 days PREDNISONE 20 MG TAB 449351 PREDNISONE Inactive NYSTATIN 018047 UNIT/ML M/T SUSP 5mL po QID x 10 days NYSTATIN 431107 UNIT/ML M/T SUSP 986262 NYSTATIN Inactive ZITHROMAX 250 MG TAB 2 po today, then 1 po q days 2-5 ZITHROMAX 250 MG TAB 2023687 AZITHROMYCIN Inactive TERBINAFINE HCL 250 MG TABS 1 tab po qday for foot infection 2014 TERBINAFINE HCL 250 MG TABS 116886 TERBINAFINE HCL Inactive KEFLEX 500 MG CAP 1 po TID x 10 days KEFLEX 500 MG CAP 609170 CEPHALEXIN Inactive Advance Directives Directive Description Start [...] Acid - Chemistry sodium, serum 139 mmol/L 123-801 1562/04/22 carbon dioxide, venous blood 29.4 mmol/L 21.0-32.0 [...] rubella antibody, serum, IgG 2.06 Lab Report: Prostatic Specific Ag - Chemistry prostate specific antigen 1.31 ng/mL 0.00-4.00 Lab Report: RapidStrep Rflx/Cx - Lab Microbial identification kit, rapid strep method Negative-Throat Culture to Follow Negative Lab Report: VITAMIN D, 25-HYDROXY/53253 - Chemistry vitamin D 25-hydroxy, serum 23 ng/mL 30-100 Encounters Code Encounter Date Provider Facility CPT-40131 Level 4 Est. Patient 22:55:17 CDT Robbie Busby MD [facility] CPT-89836 Level 3 Est. Patient 12:38:24 CDT Desmond Diaz DO [facility] CPT-70923 Level 4 Est. 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 Patient 14:50:10 CDT Robbie Busby MD [facility] CPT-53660 Level 4 Est. Patient 23:30:43 CDT Robbie Busby MD [facility] CPT-67618 Level 4 Est. Patient 10:30:43 CDT Robbie Busyb MD [facility]-82164 Level 3 Est. Patient 17:08:12 CDT Alex Shaw [facility] CPT-09535 Level 4 Est. Patient 17:51:38 CDT Robbie Busby MD [facility]-34365 Level 4 Est. Patient 14:00:21 CDT Robbie Busby MD [facility] CPT-36318 Level 4 Est. Patient 12:46:48 CDT Robbie Busby MD [facility]-52985 Level 4 Est. Patient 13:34:33 CDT Robbie Busby MD [facility] CPT-09056 Level 4 Est. Patient 16:58:28 CDT Robbie Busby MD [facility]-55096 Level 3 Est. Patient 19:36:53 CDT Alex Shaw [facility]-51365 Level 3 Est. Patient 12:58:15 CDT Robbie Busby MD [facility] Procedures Code Procedure Name Date Entry Date Standard Description CPT-G0438 Initial Annual Wellness Exam 08:10:28 CDT CPT-30081 Venipuncture Draw Fee 13:07:17 CDT CPT-G0008 Administration of Influenza Virus Vaccine 16:09:59 CDT CPT-06484 Fluzone Quadrivalent Intramuscular Suspension 0.5 ML 16: 09:59 CDT CPT-99853 Spec Collection and Handling Fee 15:05:50 CDT
--- OUTSIDE RECORDS SUMMARY | 2018-04-18 14:27 | XMS REPORT | Clinical Summary ---
Author Author Admin, [facility] Organization [facility] Address Unknown Phone Unavailable Allergies, Adverse Reactions, [...] muscle spasm/pain for 10 days CYCLOBENZAPRINE HCL 84023466701 Active Erin Garsia APRN Active PREDNISONE 20 MG TAB take 3 tabs daily for 3 days, 2 tabs daily for 3 days, 1 tab daily for 3 days, 1/2 tab daily for 4 days PREDNISONE 42521884758 No Longer Active Erin Garsia APRN Active CLONIDINE HCL 0.2 MG ORAL TABS 1 TAB BY MOUTH EVERY 8 HOURS 12/29 CLONIDINE HCL 36882336596 No Longer Active Erin Garsia APRN Active MECLIZINE HCL 25 MG TAB one 4 times a day as needed for dizziness MECLIZINE HCL 07888853018 No Longer Active Erin Garsia APRN Active SPIRONOLACTONE 25 MG TAB 4 tablets by mouth daily SPIRONOLACTONE 65921734089 No Longer Active Erin Garsia APRN Active LEVAQUIN 500 MG TAB 1 tablet by mouth daily for 7 days LEVOFLOXACIN 97540501877 No Longer Active Erin Garsia APRN Active BACTRIM DS 800-160 MG TAB 1 tab by mouth twice daily TRIMETHOPRIM-SULFAMETHOXAZOLE 31950970317 No Longer Active Robbie Busby MD Active HYDRALAZINE HCL 50 MG ORAL TABS TWO BY MOUTH THREE TIMES DAILY HYDRALAZINE HCL 71554750552 No Longer Active Jillina Frazell CONDOMINIUM MANAGER Active HYDROCODONE-ACETAMINOPHEN 5-325 MG TABS 1 tab by mouth BID prn back pain 2013 HYDROCODONE-ACETAMINOPHEN 24469881817 No Longer Active Jillina Frazell CONDOMINIUM MANAGER Active HYDROCHLOROTHIAZIDE TABS Take one by mouth daily HYDROCHLOROTHIAZIDE TABS 23251169431 No Longer Active Jillina Frazell CONDOMINIUM MANAGER Active LAMISIL 125 MG ORAL PACK 1 TAB PO DAILY TERBINAFINE HCL 77463997987 No Longer Active Jillina Frazell CONDOMINIUM MANAGER Active TRILEPTAL 150 MG ORAL TABS 1 TAB PO Q HS OXCARBAZEPINE 94140725929 No Longer Active Jillina Frazell CONDOMINIUM MANAGER Active BETADINE 10 % EXT SOLN wash with solution to treat follicultis POVIDONE-IODINE 39947473475 No Longer Active Jillina Frazell CONDOMINIUM MANAGER Active NYSTATIN 461479 UNIT/ML M/T SUSP 5mL po QID x 10 days NYSTATIN 81595502856 No Longer Active Erin Garsia APRN Active PREDNISONE 20 MG TAB 1 tablet twice daily for 2 days, then 1 tablet once daily for 2 days PREDNISONE 38107760611 No Longer Active Robbie Busby MD Active CEFDINIR 300 MG ORAL CAPS Take 1 cap po bid x 10 days CEFDINIR 55213245014 No Longer Active Robbie Busby MD Active AMLODIPINE BESYLATE 10 MG TABS 1 tablet by mouth daily AMLODIPINE BESYLATE 98118752095 Active Robbie Busby MD Active CARVEDILOL 25 MG TABS 1 & 1/2 TAB po BID CARVEDILOL 18343010981 Active Robbie Busby MD Active VITAMIN D3 07644 UNIT CAPS 2 CAPS PO WEEKLY CHOLECALCIFEROL 68649232502 Active Erin Garsia APRN Active NEXIUM 40 MG CPDR 1 cap by mouth daily ESOMEPRAZOLE MAGNESIUM 72976984856 Active Robbie Busby MD Active PROTONIX 40 MG SOLR 1 po qday for acid reflux PANTOPRAZOLE SODIUM 80054605709 No Longer Active Gali Negro Active KEFLEX 500 MG CAP 1 po TID x 10 days CEPHALEXIN 48915388471 No Longer Active Robbie Busby MD Active FIORICET 50-300-40 MG ORAL CAPS take 1 tab po qday prn migraines. [id number] 33229079469 Active Robbie Busby MD Active TOPIRAMATE 50 MG ORAL TABS take 1 tab po BID for migraines. TOPIRAMATE 50342964887 Active Robbie Busby MD Active TEMAZEPAM 15 MG ORAL CAPS 1 TAB PO Q HS TEMAZEPAM 78068916941 Active Robbie Busby MD Active ALPRAZOLAM 2 MG ORAL TABS 1 TAB PO BID ALPRAZOLAM 33178136547 Active Robbie Busby MD Active FENOFIBRATE 145 MG TABS Take one by mouth daily FENOFIBRATE 68092956899 No Longer Active Robbie Busby MD Active SPIRONOLACTONE 50 MG TABS 1 tablet by mouth twice a day SPIRONOLACTONE 26695634303 No Longer Active Robbie Busby MD Active HYDRALAZINE HCL 25 MG TABS 1 tablet by mouth tid for hypertension HYDRALAZINE HCL 98362051998 No Longer Active Robbie Busby MD Active VIIBRYD 40 MG TABS take 1 tab po qday for depression. VILAZODONE HCL 49110279471 No Longer Active Robbie Busby MD Active TERBINAFINE HCL 250 MG TABS 1 tab po qday for foot infection 2014 TERBINAFINE HCL 50892014670 No Longer Active Robbie Busby MD Active GABAPENTIN 300 MG CAPS 1 po q hs for nerve pain GABAPENTIN 30316136228 Active Robbie Busby MD Active FLONASE 50 MCG/ACT SUSP 1 spray each nostril twice daily for allergies and runny nose FLUTICASONE PROPIONATE 65596678310 Active Robbie Busby MD Active CHERATUSSIN AC 100-10 MG/5ML ORAL SOLN 7.5 mL PO q 4-6 hrs PRN cough GUAIFENESIN-CODEINE 75841978305 No Longer Active Robbie Busby MD Active AZITHROMYCIN 250 MG ORAL TABS 2 tablets PO today---then, 1 tablet PO daily x 4 more days (and 1 optional refill) AZITHROMYCIN 30536556052 No Longer Active Robbie Busby MD Active NORVASC 10 MG TAB 1 tablet by mouth daily AMLODIPINE BESYLATE 95725676637 No Longer Active Alex ALVAREZ Active IMDUR 60 MG TAB CR take 1 tab po qday for blood pressure ISOSORBIDE MONONITRATE Active Robbie Busby MD Active ISOSORBIDE DINITRATE 30 MG TABS Take one by mouth daily ISOSORBIDE DINITRATE 10180541580 No Longer Active Robbie Busby MD Active VIIBRYD 40 MG TABS 1 TA B PO DAILY VILAZODONE HCL 18297569805 Active Robbie Busby MD Active LORATADINE 10 MG TABS 1 tablet by mouth daily for congestion and allergies. LORATADINE 67992191021 Active Robbie Busby MD Active ZITHROMAX 250 MG TAB 2 po today, then 1 po q days 2-5 AZITHROMYCIN 07867755534 No Longer Active Robbie Busby MD Active [id number] 0.3 MG/24HR PTWK apply 2 patches q week for HTN CLONIDINE HCL 33894738226 Active Robbie Busby MD Active NITROSTAT 0.4 MG SUBL PRN NITROGLYCERIN 32144637484 Active Robbie Busby MD Active DOXAZOSIN MESYLATE 4 MG TABS Take one by mouth daily DOXAZOSIN MESYLATE 04632801491 Active Erin Garsia CONDOMINIUM MANAGER Active TOPROL XL 200 MG [id number] Take one by mouth daily METOPROLOL SUCCINATE 49918252572 Active Robbie Busby MD Active VENLAFAXINE HCL ER 150 MG [id number]-GOP Take one by mouth daily VENLAFAXINE HCL 67236970060 Active Robbie Busby MD Active LIPITOR 40 MG TABS Take one by mouth daily ATORVASTATIN CALCIUM 62223445780 Active Robbie Busby MD Active ISOSORBIDE DINITRATE 30 MG TABS Take one by mouth daily ISOSORBIDE DINITRATE 30 MG TABS 544119 ISOSORBIDE DINITRATE Inactive NORVASC 10 MG TAB 1 tablet by mouth daily NORVASC 10 MG TAB 949169 AMLODIPINE BESYLATE Inactive AZITHROMYCIN 250 MG ORAL TABS 2 tablets PO today---then, 1 tablet PO daily x 4 more days (and 1 optional refill) AZITHROMYCIN 250 MG ORAL TABS 4067758 AZITHROMYCIN Inactive CHERATUSSIN AC 100-10 MG/5ML ORAL SOLN 7.5 mL PO q 4-6 hrs PRN cough CHERATUSSIN AC 100-10 MG/5ML ORAL SOLN 203672 GUAIFENESIN- CODEINE Inactive VIIBRYD 40 MG TABS take 1 tab po qday for depression. VIIBRYD 40 MG TABS VILAZODONE HCL Inactive HYDRALAZINE HCL 25 MG TABS 1 tablet by mouth tid for hypertension HYDRALAZINE HCL 25 MG TABS 381891 HYDRALAZINE HCL Inactive SPIRONOLACTONE 50 MG TABS 1 tablet by mouth twice a day SPIRONOLACTONE 50 MG TABS 640500 SPIRONOLACTONE Inactive FENOFIBRATE 145 MG TABS Take one by mouth daily FENOFIBRATE 145 MG TABS 643074 FENOFIBRATE Inactive PROTONIX 40 MG SOLR 1 po qday for acid reflux PROTONIX 40 MG SOLR 051396 PANTOPRAZOLE SODIUM Inactive CEFDINIR 300 MG ORAL CAPS Take 1 cap po bid x 10 days CEFDINIR 300 MG ORAL CAPS 417728 CEFDINIR Inactive PREDNISONE 20 MG TAB 1 tablet twice daily for 2 days, then 1 tablet once daily for 2 days PREDNISONE 20 MG TAB 274305 PREDNISONE Inactive NYSTATIN 735371 UNIT/ML M/T SUSP 5mL po QID x 10 days NYSTATIN 611400 UNIT/ML M/T SUSP 377112 NYSTATIN Inactive BETADINE 10 % EXT SOLN wash with solution to treat follicultis BETADINE 10 % EXT SOLN 9031789 POVIDONE-IODINE Inactive TRILEPTAL 150 MG ORAL TABS 1 TAB PO Q HS TRILEPTAL 150 MG ORAL TABS 074469 OXCARBAZEPINE Inactive LAMISIL 125 MG ORAL PACK 1 TAB PO DAILY LAMISIL 125 MG ORAL PACK TERBINAFINE HCL Inactive HYDROCHLOROTHIAZIDE TABS Take one by mouth daily HYDROCHLOROTHIAZIDE TABS HYDROCHLOROTHIAZIDE TABS Inactive HYDROCODONE-ACETAMINOPHEN 5-325 MG TABS 1 tab by mouth BID prn back pain 2013 HYDROCODONE-ACETAMINOPHEN 5-325 MG TABS 799201 HYDROCODONE -ACETAMINOPHEN Inactive HYDRALAZINE HCL 50 MG ORAL TABS TWO BY MOUTH THREE TIMES DAILY HYDRALAZINE HCL 50 MG ORAL TABS 179882 HYDRALAZINE HCL Inactive LEVAQUIN 500 MG TAB 1 tablet by mouth daily for 7 days LEVAQUIN 500 MG TAB 849724 LEVOFLOXACIN Inactive SPIRONOLACTONE 25 MG TAB 4 tablets by mouth daily SPIRONOLACTONE 25 MG TAB 469072 SPIRONOLACTONE Inactive MECLIZINE HCL 25 MG TAB one 4 times a day as needed for dizziness MECLIZINE HCL 25 MG TAB 882801 MECLIZINE HCL Inactive CLONIDINE HCL 0.2 MG ORAL TABS 1 TAB BY MOUTH EVERY 8 HOURS 12/29 CLONIDINE HCL 0.2 MG ORAL TABS 375565 CLONIDINE HCL Inactive ZITHROMAX 250 MG TAB 2 po today, then 1 po q days 2-5 ZITHROMAX 250 MG TAB 7235285 AZITHROMYCIN Inactive TERBINAFINE HCL 250 MG TABS 1 tab po qday for foot infection 2014 TERBINAFINE HCL 250 MG TABS 581455 TERBINAFINE HCL Inactive KEFLEX 500 MG CAP 1 po TID x 10 days KEFLEX 500 MG CAP 806519 CEPHALEXIN Inactive BACTRIM DS 800-160 MG TAB 1 tab by mouth twice daily BACTRIM DS 800-160 MG TAB 395317 TRIMETHOPRIM-SULFAMETHOXAZOLE Inactive PREDNISONE 20 MG TAB take 3 tabs daily for 3 days, 2 tabs daily for 3 days, 1 tab daily for 3 days, 1/2 tab daily for 4 days PREDNISONE 20 MG TAB 345676 PREDNISONE Inactive Advance Directives Directive Description Start [...] % 11.6-14.8 platelet count 229 10^3/MM^3 10*3/mm3 727-571 1287/09/06 leukocyte count, blood 9.7 10^3/MM^3 10*3/mm3 4.6-10.2 Lab Report: CBC-QUEST, COMPREHENSIVE METABOLIC PANEL - Hematology platelet count 185 THOUSAND/UL 10*3/mm3 791-106 0817/04/14 red blood cell distribution width 15.8 % 11.0-15.0 mean corpuscular hemoglobin concentration, RBC 33.1 G/DL % 32.0- 36.0 leukocyte count, blood 10.1 THOUSAND/UL 10*3/mm3 3.8-10.8 mean platelet volume 10.9 fL 7.5-12.5 erythrocyte (RBC) count 4.64 MILLION/UL 10*6/mm3 4.20-5.80 hemoglobin, blood 13.9 g/dL 13.2-17.1 hematocrit, blood 42.0 % 38.5-50.0 mean corpuscular volume, RBC 90.5 fL 80.0-100.0 mean corpuscular hemoglobin, RBC 29.9 pg 27.0-33.0 Lab Report: HEPATITIS B SAB/Immune Status, RUBELLA IGG AB(Immune Status) - Serology rubella antibody, serum, IgG 2.06 Lab Report: LIPID PANEL, TSH/899, T4, FREE/866 - Chemistry HDL cholesterol, serum 30 mg/dL > OR=40 triglyceride, serum, fasting 466 mg/dL <150 LDL cholesterol, serum SEE NOTE mg/dL (calc) mg/dL <130 cholesterol/HDL ratio, serum 7.3 (calc) < OR=5.0 cholesterol, serum 220 mg/dL 125-200 Lab Report: MICROALB/CREAT W/RATIO - Chemistry albumin/creatinine ratio, urine < 30 mg/g mg/g{creat} 0-29 Lab Report: MICROALB/CREAT W/RATIO - Lab microalbumin, urine 80 0-19 Lab Report: VITAMIN D, 25-HYDROXY/87723 - Chemistry vitamin D 25-hydroxy, serum 23 ng/mL 30-100 Encounters Code Encounter Date Provider Facility CPT-68365 Level 3 Est. Patient 17:48:02 CDT Robbie Busby MD [facility]-24254 Level 4 Est. 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 Patient 09:16:37 CDT Robbie Busby MD [facility]-24278 Level 3 Est. Patient 19:38:43 CDT Robbie Busby MD [facility]-10160 Level 3 Est. Patient 11:53:38 CDT Robbie Busby MD [facility]-65704 Level 4 Est. Patient 12:52:22 CDT Rober Rodríguez [facility]-49249 Level 4 Est. Patient 22:55:17 CDT Robbie Busby MD [facility] CPT-53612 Level 3 Est. Patient 12:38:24 CDT Desmond Diaz DO [facility] CPT-34513 Level 4 Est. 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 Patient 14:50:10 CDT Robbie Busby MD [facility] CPT-96548 Level 4 Est. Patient 23:30:43 CDT Robbie Busby MD [facility] CPT-02089 Level 4 Est. Patient 10:30:43 CDT Robbie Busby MD [facility] CPT-48737 Level 3 Est. Patient 17:08:12 CDT Alex ALVAREZ [facility] CPT-97852 Level 4 Est. Patient 17:51:38 CDT Robbie Busby MD [facility]-85149 Level 4 Est. Patient 14:00:21 CDT Robbie Busby MD [facility] CPT-73052 Level 4 Est. Patient 12:46:48 CDT Robbie Busby MD [facility] CPT-28154 Level 4 Est. Patient 13:34:33 CDT Robbie Busby MD [facility] CPT-88181 Level 4 Est. Patient 16:58:28 CDT Robbie Busby MD [facility] CPT-27770 Level 3 Est. Patient 19:36:53 CDT Alex ALVAREZ [facility] CPT-82546 Level 3 Est. Patient 12:58:15 CDT Robbie Busby MD [facility] Procedures Code Procedure Name Date Entry Date Standard Description CPT-J0696 Rocephin 1000 mg (Ceftriaxone) 17:43:43 [employer]Y PLAN SALES AGENT CPT-J1040 Depo Medrol 80 mg (Methyl Prednisolone Acetate) 17:43: 43 [employer]Y PLAN SALES AGENT CPT-J1100 Decadron 8mg (Dexamethasone) 17:43:42 PARTY PLAN SALES AGENT CPT-13536 Abx/Therapy Injection 17:43:42 PARTY PLAN SALES AGENT CPT-84756 Abx/Therapy Injection 17:43:42 PARTY PLAN SALES AGENT CPT-J1040 Depo Medrol 80 mg (Methyl Prednisolone Acetate) 09:43: 34 PARTY PLAN SALES AGENT CPT-J1100 Decadron 8mg (Dexamethasone) 09:43:34 PARTY PLAN SALES AGENT CPT-J0696 Rocephin 1gm Inj Solr 09:43:34 PARTY PLAN SALES AGENT CPT-63407 Wound Culture - LAB USE ONLY 14:00:21 CDT CPT-I/D I/D Abscess 09:16:37 CDT CPT-44998 Venipuncture Draw Fee 15:20:23 CDT CPT-36457 Microalbumin - LAB USE ONLY 16:02:19 CDT CPT-12386 CBC - LAB USE ONLY 16:02:19 CDT CPT-54155 Venipuncture Draw Fee 16:02:19 CDT CPT-G0438 Initial Annual Wellness Exam 08:10:28 CDT CPT-14772 Venipuncture Draw Fee 13:07:17 CDT CPT-G0008 Administration of Influenza Virus Vaccine 16:09:59 CDT CPT-34847 Fluzone Quadrivalent Intramuscular Suspension 0.5 ML 16: 09:59 CDT CPT-76746 Spec Collection and Handling Fee 15:05:50 CDT
--- OUTSIDE RECORDS SUMMARY | 2018-04-18 14:29 | XMS REPORT | Clinical Summary ---
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 Desmond Diaz DO Other malignant secondary hypertension Tachycardia 785.0 Active Rober Rodríguez OUTPLACEMENT CONSULTANT Tachycardia, unspecified Insect bite, infected 919.5 Resolved Desmond Diaz DO Insect bite, nonvenomous, of other, multiple, and unspecified sites, infected Abscess, skin 682.9 Resolved Desmond Diaz DO Cellulitis and abscess of unspecified sites URI 465.9 Resolved Desmond Diaz DO Acute upper respiratory infections of unspecified site Hypertension 401.9 Active Rober Rodríguez OUTPLACEMENT CONSULTANT Unspecified essential hypertension Sinusitis - acute [...] Hypogonadism, low testosterone 257.2 Active Erin Mai OUTPLACEMENT CONSULTANT Other testicular hypofunction Low back pain, chronic [...] 37.0-37.9, adult Sinusitis ICD-461.9 Inactive Emily Atwood MEDICAL CODING AUDITOR 2017 Low back pain, acute ICD-724.2 Inactive Emily Atwood MEDICAL CODING AUDITOR Low back pain, chronic ICD-724.2 Inactive Emily Atwood MEDICAL CODING AUDITOR Bronchitis, acute ICD-466.0 Inactive Emily Atwood MEDICAL CODING AUDITOR Onychomycosis, toenails ICD-110.1 Inactive Emily Atwood MEDICAL CODING AUDITOR Dizziness ICD-780.4 Inactive Emily Atwood MEDICAL CODING AUDITOR 2017 Folliculitis ICD-704.8 Inactive Emily Atwood MEDICAL CODING AUDITOR Pharyngitis-Acute ICD-462 Inactive Emily Atwood MEDICAL CODING AUDITOR Fatigue ICD-780.79 Inactive Emily Atwood MEDICAL CODING AUDITOR 09/20 Hypertension, secondary, malignant ICD-405.09 Inactive Emily Atwood MEDICAL CODING AUDITOR Insect bite, infected ICD-919.5 Inactive Emily Atwood MEDICAL CODING AUDITOR Abscess, skin ICD-682.9 Inactive Emily Atwood MEDICAL CODING AUDITOR URI ICD-465.9 Inactive Emily Atwood MEDICAL CODING AUDITOR Sinusitis - acute ICD-461.9 Inactive Emily Atwood MEDICAL CODING AUDITOR Acute confusion ICD-293.0 Inactive Emily Atwood MEDICAL CODING AUDITOR Headache ICD-784.0 Inactive Emily Rai CISSE 09/20 Back pain ICD-724.5 Inactive Emily Atwood MEDICAL CODING AUDITOR 2017 Rib pain, right sided ICD-786.50 [...] blood pressure and rapid pulse METOPROLOL SUCCINATE 44596928233 Active Robbie Busby MD Active [id number] 0.3 MG/24HR TRANSDERMAL PATCH WEEKLY apply 2 patches q week for HTN CLONIDINE HCL 64899244300 No Longer Active Robbie Busby MD Active IMDUR 60 MG ORAL TABLET EXTENDED RELEASE 24 HOUR take 1 tab po qday for blood pressure ISOSORBIDE MONONITRATE 73041686473 No Longer Active Robbie Busby MD Active TEMAZEPAM 15 MG ORAL CAPSULE 1 TAB PO Q HS TEMAZEPAM 98654954714 No Longer Active Robbie Busby MD Active TOPIRAMATE 50 MG ORAL TABLET 1 po BID for migraines TOPIRAMATE 94115142469 No Longer Active Robbie Busby MD Active CYCLOBENZAPRINE HCL 10 MG ORAL TABLET 1 tablet by mouth three times daily as needed for muscle spasm/pain CYCLOBENZAPRINE HCL 07225949051 No Longer Active Robbie Busby MD Active TOPROL XL 200 MG ORAL TABLET EXTENDED RELEASE 24 HOUR Take one by mouth daily METOPROLOL SUCCINATE 15334229960 No Longer Active Robbie Busby MD Active METFORMIN HCL 500 MG ORAL TABLET 1 tablet by mouth daily for diabetes type 2 METFORMIN HCL 13877497433 Active Robbie Busby MD Active SINGULAIR 10 MG ORAL TABLET 1 po qday for allergies. MONTELUKAST SODIUM 73170577892 No Longer Active Robbie Busby MD Active PREDNISONE 20 MG ORAL TABLET two tabs by mouth today, then one tab by mouth days two and three PREDNISONE 84934075832 No Longer Active Robbie Busby MD Active AZITHROMYCIN 250 MG ORAL TABLET 2 po qd x 1 day, then 1 po qd x 4 days 09/20 AZITHROMYCIN 15433904602 No Longer Active Desmond Diaz DO Active TOPIRAMATE 50 MG ORAL TABLET take 1 tab po BID for migraines. TOPIRAMATE 50620543429 No Longer Active Desmond Diaz DO Active CYCLOBENZAPRINE HCL 10 MG ORAL TABLET 1 po TID PRN muscle spasm/pain for 10 days CYCLOBENZAPRINE HCL 29254024994 No Longer Active Desmond Diaz DO Active GUAIFENESIN ER 600 MG ORAL TABLET EXTENDED RELEASE 12 HOUR 1 tab po q am 2016 GUAIFENESIN 38192726135 No Longer Active Robbie Busby MD Active DIVALPROEX SODIUM ER 500 MG ORAL TABLET EXTENDED RELEASE 24 HOUR Once daily DIVALPROEX SODIUM 09917022333 Active Robbie Busby MD Active DEPO-TESTOSTERONE 200 MG/ML INTRAMUSCULAR SOLUTION 1 IM Injections every 2 weeks for low testosterone TESTOSTERONE CYPIONATE 19841221163 Active Zulema Blank LPN Active FLUTICASONE PROPIONATE 50 MCG/ACT NASAL SUSPENSION 2 sprays per nostril bid for 1 week, then 1 spray bid FLUTICASONE PROPIONATE 15433176339 Active Rober Rodríguez APRN Active HYDRALAZINE HCL 25 MG ORAL TABLET Take 1 tab BID. HYDRALAZINE HCL 83705594912 Active Rober Rodríguez APRN Active VITAMIN D3 41698 UNIT ORAL TABLET 2 po weekly CHOLECALCIFEROL 97178711277 Active Robbie Busby MD Active OXYCODONE HCL ER 10 MG ORAL TABLET ER 12 HOUR ABUSE-DETERRENT 1 tab po 3 times qd. OXYCODONE HCL 10327421326 Active Robbie Busby MD Active NITROSTAT 0.4 MG SUBLINGUAL TABLET SUBLINGUAL PRN NITROGLYCERIN 77633053208 No Longer Active Robbie Busby MD Active LORATADINE 10 MG ORAL TABLET 1 tablet by mouth daily for congestion and allergies. LORATADINE 12042264276 No Longer Active Robbie Busby MD Active FLONASE 50 MCG/ACT NASAL SUSPENSION 1 spray each nostril twice daily for allergies and runny nose FLUTICASONE PROPIONATE 91197049495 No Longer Active Robbie Busby MD Active FIORICET 50-300-40 MG ORAL CAPSULE take 1 tab po qday prn migraines. [id number] 04356445255 No Longer Active Robbie Busby MD Active VITAMIN D3 91274 UNIT ORAL CAPSULE 2 CAPS PO WEEKLY CHOLECALCIFEROL 01107887894 No Longer Active Robbie Busby MD Active CYCLOBENZAPRINE HCL 10 MG ORAL TABLET 1 tablet by mouth three times daily as needed for muscle spasm/pain for 10 days CYCLOBENZAPRINE HCL 38870884302 No Longer Active Robbie Busby MD Active PREDNISONE 20 MG ORAL TABLET take 3 tabs daily for 3 days, 2 tabs daily for 3 days, 1 tab daily for 3 days, 1/2 tab daily for 4 days PREDNISONE 26826289399 No Longer Active Erin Mai APRN Active CLONIDINE HCL 0.2 MG ORAL TABLET 1 TAB BY MOUTH EVERY 8 HOURS CLONIDINE HCL 57231974699 No Longer Active Erin Mai APRN Active MECLIZINE HCL 25 MG ORAL TABLET one 4 times a day as needed for dizziness MECLIZINE HCL 66429920613 No Longer Active Erin Arell OUTPLACEMENT CONSULTANT Active SPIRONOLACTONE 25 MG ORAL TABLET 4 tablets by mouth daily SPIRONOLACTONE 12184367711 No Longer Active Erin Arell OUTPLACEMENT CONSULTANT Active LEVAQUIN 500 MG ORAL TABLET 1 tablet by mouth daily for 7 days LEVOFLOXACIN 30602160146 No Longer Active Erin Arell OUTPLACEMENT CONSULTANT Active BACTRIM DS 800-160 MG ORAL TABLET 1 tab by mouth twice daily 2015 TRIMETHOPRIM-SULFAMETHOXAZOLE 65200609965 No Longer Active Robbie Busby MD Active HYDRALAZINE HCL 50 MG ORAL TABLET TWO BY MOUTH THREE TIMES DAILY HYDRALAZINE HCL 19566840638 No Longer Active Agnieszkaina Zulemal OUTPLACEMENT CONSULTANT Active HYDROCODONE-ACETAMINOPHEN 5-325 MG ORAL TABLET 1 tab by mouth BID prn back pain HYDROCODONE-ACETAMINOPHEN 94789992905 No Longer Active Jillina Frazell OUTPLACEMENT CONSULTANT Active HYDROCHLOROTHIAZIDE TABLET Take one by mouth daily HYDROCHLOROTHIAZIDE TABS 39435123005 No Longer Active Jillina Frazell OUTPLACEMENT CONSULTANT Active LAMISIL 125 MG ORAL PACKET 1 TAB PO DAILY TERBINAFINE HCL 61466681095 No Longer Active Jillina Frazell OUTPLACEMENT CONSULTANT Active TRILEPTAL 150 MG ORAL TABLET 1 TAB PO Q HS OXCARBAZEPINE 28001227826 No Longer Active Jillina Frazell OUTPLACEMENT CONSULTANT Active BETADINE 10 % EXTERNAL SOLUTION wash with solution to treat follicultis 07/29 POVIDONE-IODINE 05221654161 No Longer Active Jillina Frazell OUTPLACEMENT CONSULTANT Active NYSTATIN 975990 UNIT/ML MOUTH/THROAT SUSPENSION 5mL po QID x 10 days NYSTATIN 81025073685 No Longer Active Erin Arell OUTPLACEMENT CONSULTANT Active PREDNISONE 20 MG ORAL TABLET 1 tablet twice daily for 2 days, then 1 tablet once daily for 2 days PREDNISONE 30454380454 No Longer Active Robbie Busby MD Active CEFDINIR 300 MG ORAL CAPSULE Take 1 cap po bid x 10 days CEFDINIR 30299212936 No Longer Active Robbie Busby MD Active AMLODIPINE BESYLATE 10 MG ORAL TABLET 1 tablet by mouth daily AMLODIPINE BESYLATE 68943097734 Active Robbie Busby MD Active CARVEDILOL 25 MG ORAL TABLET 1 & 1/2 TAB po BID CARVEDILOL 29417397609 Active Robbie Busby MD Active NEXIUM 40 MG ORAL CAPSULE DELAYED RELEASE 1 cap by mouth daily ESOMEPRAZOLE MAGNESIUM 56286544227 Active Robbie Busby MD Active PROTONIX 40 MG INTRAVENOUS SOLUTION RECONSTITUTED 1 po qday for acid reflux PANTOPRAZOLE SODIUM 58141199048 No Longer Active Galileonila Negro Active KEFLEX 500 MG ORAL CAPSULE 1 po TID x 10 days CEPHALEXIN 12270728638 No Longer Active Robbie Busby MD Active ALPRAZOLAM 2 MG ORAL TABLET 1 TAB PO BID ALPRAZOLAM 19847022135 Active Robbie Busby MD Active FENOFIBRATE 145 MG ORAL TABLET Take one by mouth daily FENOFIBRATE 20744797948 No Longer Active Robbie Busby MD Active SPIRONOLACTONE 50 MG ORAL TABLET 1 tablet by mouth twice a day SPIRONOLACTONE 66355299063 No Longer Active Robbie Busby MD Active HYDRALAZINE HCL 25 MG ORAL TABLET 1 tablet by mouth tid for hypertension 2013 HYDRALAZINE HCL 94698758279 No Longer Active Robbie Busby MD Active VIIBRYD 40 MG ORAL TABLET take 1 tab po qday for depression. 2014 VILAZODONE HCL 00791834393 No Longer Active Robbie Busby MD Active TERBINAFINE HCL 250 MG ORAL TABLET 1 tab po qday for foot infection TERBINAFINE HCL 37989433870 No Longer Active Robbie Busby MD Active GABAPENTIN 300 MG ORAL CAPSULE 1 po q hs for nerve pain GABAPENTIN 08542588588 Active Robbie Busby MD Active CHERATUSSIN AC 100-10 MG/5ML ORAL SOLUTION 7.5 mL PO q 4-6 hrs PRN cough 2014 GUAIFENESIN-CODEINE 90297593915 No Longer Active Robbie Busby MD Active AZITHROMYCIN 250 MG ORAL TABLET 2 tablets PO today---then, 1 tablet PO daily x 4 more days (and 1 optional refill) AZITHROMYCIN 03150547515 No Longer Active Robbei Busby MD Active NORVASC 10 MG ORAL TABLET 1 tablet by mouth daily AMLODIPINE BESYLATE 46584344284 No Longer Active Alex ALVAREZ Active ISOSORBIDE DINITRATE 30 MG ORAL TABLET Take one by mouth daily ISOSORBIDE DINITRATE 01998534997 No Longer Active Robbie Busby MD Active VIIBRYD 40 MG ORAL TABLET 1 TA B PO DAILY VILAZODONE HCL 46251203607 Active Robbie Busby MD Active ZITHROMAX 250 MG ORAL TABLET 2 po today, then 1 po q days 2-5 AZITHROMYCIN 17839262106 No Longer Active Robbie Busby MD Active DOXAZOSIN MESYLATE 4 MG ORAL TABLET Take one by mouth daily DOXAZOSIN MESYLATE 59651581099 Active Robbie Busby MD Active VENLAFAXINE HCL ER 150 MG ORAL TABLET EXTENDED RELEASE 24 HOUR Take one by mouth daily VENLAFAXINE HCL 42967777567 Active Robbie Busby MD Active LIPITOR 40 MG ORAL TABLET Take one by mouth daily ATORVASTATIN CALCIUM 45600400224 Active Robbie Busby MD Active ISOSORBIDE DINITRATE 30 MG ORAL TABLET Take one by mouth daily ISOSORBIDE DINITRATE 30 MG ORAL TABLET 410670 ISOSORBIDE DINITRATE Inactive NORVASC 10 MG ORAL TABLET 1 tablet by mouth daily NORVASC 10 MG ORAL TABLET 522931 AMLODIPINE BESYLATE Inactive AZITHROMYCIN 250 MG ORAL TABLET 2 tablets PO today---then, 1 tablet PO daily x 4 more days (and 1 optional refill) AZITHROMYCIN 250 MG ORAL TABLET 829961 AZITHROMYCIN Inactive CHERATUSSIN AC 100-10 MG/5ML ORAL SOLUTION 7.5 mL PO q 4-6 hrs PRN cough 2014 CHERATUSSIN AC 100-10 MG/5ML ORAL SOLUTION 954359 GUAIFENESIN-CODEINE Inactive VIIBRYD 40 MG ORAL TABLET take 1 tab po qday for depression. 2014 VIIBRYD 40 MG ORAL TABLET VILAZODONE HCL Inactive HYDRALAZINE HCL 25 MG ORAL TABLET 1 tablet by mouth tid for hypertension 2013 HYDRALAZINE HCL 25 MG ORAL TABLET 464892 HYDRALAZINE HCL Inactive SPIRONOLACTONE 50 MG ORAL TABLET 1 tablet by mouth twice a day SPIRONOLACTONE 50 MG ORAL TABLET 911721 SPIRONOLACTONE Inactive FENOFIBRATE 145 MG ORAL TABLET Take one by mouth daily FENOFIBRATE 145 MG ORAL TABLET 632439 FENOFIBRATE Inactive PROTONIX 40 MG INTRAVENOUS SOLUTION RECONSTITUTED 1 po qday for acid reflux PROTONIX 40 MG INTRAVENOUS SOLUTION RECONSTITUTED 300957 PANTOPRAZOLE SODIUM Inactive CEFDINIR 300 MG ORAL CAPSULE Take 1 cap po bid x 10 days CEFDINIR 300 MG ORAL CAPSULE 153368 CEFDINIR Inactive PREDNISONE 20 MG ORAL TABLET 1 tablet twice daily for 2 days, then 1 tablet once daily for 2 days PREDNISONE 20 MG ORAL TABLET 128541 PREDNISONE Inactive NYSTATIN 595120 UNIT/ML MOUTH/THROAT SUSPENSION 5mL po QID x 10 days NYSTATIN 383872 UNIT/ML MOUTH/THROAT SUSPENSION 944444 NYSTATIN Inactive BETADINE 10 % EXTERNAL SOLUTION wash with solution to treat follicultis 07/29 BETADINE 10 % EXTERNAL SOLUTION 1079187 POVIDONE-IODINE Inactive TRILEPTAL 150 MG ORAL TABLET 1 TAB PO Q HS TRILEPTAL 150 MG ORAL TABLET 232232 OXCARBAZEPINE Inactive LAMISIL 125 MG ORAL PACKET 1 TAB PO DAILY LAMISIL 125 MG ORAL PACKET TERBINAFINE HCL Inactive HYDROCHLOROTHIAZIDE TABLET Take one by mouth daily HYDROCHLOROTHIAZIDE TABLET HYDROCHLOROTHIAZIDE TABS Inactive HYDROCODONE-ACETAMINOPHEN 5-325 MG ORAL TABLET 1 tab by mouth BID prn back pain HYDROCODONE-ACETAMINOPHEN 5-325 MG ORAL TABLET 536754 HYDROCODONE-ACETAMINOPHEN Inactive HYDRALAZINE HCL 50 MG ORAL TABLET TWO BY MOUTH THREE TIMES DAILY HYDRALAZINE HCL 50 MG ORAL TABLET 653562 HYDRALAZINE HCL Inactive LEVAQUIN 500 MG ORAL TABLET 1 tablet by mouth daily for 7 days LEVAQUIN 500 MG ORAL TABLET 390477 LEVOFLOXACIN Inactive SPIRONOLACTONE 25 MG ORAL TABLET 4 tablets by mouth daily SPIRONOLACTONE 25 MG ORAL TABLET 700120 SPIRONOLACTONE Inactive MECLIZINE HCL 25 MG ORAL TABLET one 4 times a day as needed for dizziness MECLIZINE HCL 25 MG ORAL TABLET 552597 MECLIZINE HCL Inactive CLONIDINE HCL 0.2 MG ORAL TABLET 1 TAB BY MOUTH EVERY 8 HOURS CLONIDINE HCL 0.2 MG ORAL TABLET 944858 CLONIDINE HCL Inactive CYCLOBENZAPRINE HCL 10 MG ORAL TABLET 1 tablet by mouth three times daily as needed for muscle spasm/pain for 10 days CYCLOBENZAPRINE HCL 10 MG ORAL TABLET 111509 CYCLOBENZAPRINE HCL Inactive VITAMIN D3 45750 UNIT ORAL CAPSULE 2 CAPS PO WEEKLY VITAMIN D3 11988 UNIT ORAL CAPSULE CHOLECALCIFEROL Inactive FIORICET 50-300-40 MG ORAL CAPSULE take 1 tab po qday prn migraines. FIORICET 50-300-40 MG ORAL CAPSULE 772888 BUTALBITAL-APAP- CAFFEINE Inactive FLONASE 50 MCG/ACT NASAL SUSPENSION 1 spray each nostril twice daily for allergies and runny nose FLONASE 50 MCG/ACT NASAL SUSPENSION 2570414 FLUTICASONE PROPIONATE Inactive LORATADINE 10 MG ORAL TABLET 1 tablet by mouth daily for congestion and allergies. LORATADINE 10 MG ORAL TABLET 555236 LORATADINE Inactive NITROSTAT 0.4 MG SUBLINGUAL TABLET SUBLINGUAL PRN NITROSTAT 0.4 MG SUBLINGUAL TABLET SUBLINGUAL 829648 NITROGLYCERIN Inactive GUAIFENESIN ER 600 MG ORAL TABLET EXTENDED RELEASE 12 HOUR 1 tab po q am 2016 GUAIFENESIN ER 600 MG ORAL TABLET EXTENDED RELEASE 12 HOUR GUAIFENESIN Inactive CYCLOBENZAPRINE HCL 10 MG ORAL TABLET 1 po TID PRN muscle spasm/pain for 10 days CYCLOBENZAPRINE HCL 10 MG ORAL TABLET 838053 CYCLOBENZAPRINE HCL Inactive TOPIRAMATE 50 MG ORAL TABLET take 1 tab po BID for migraines. TOPIRAMATE 50 MG ORAL TABLET 768966 TOPIRAMATE Inactive PREDNISONE 20 MG ORAL TABLET two tabs by mouth today, then one tab by mouth days two and three PREDNISONE 20 MG ORAL TABLET 860646 PREDNISONE Inactive TOPROL XL 200 MG ORAL TABLET EXTENDED RELEASE 24 HOUR Take one by mouth daily TOPROL XL 200 MG ORAL TABLET EXTENDED RELEASE 24 HOUR METOPROLOL SUCCINATE Inactive CYCLOBENZAPRINE HCL 10 MG ORAL TABLET 1 tablet by mouth three times daily as needed for muscle spasm/pain CYCLOBENZAPRINE HCL 10 MG ORAL TABLET 482406 CYCLOBENZAPRINE HCL Inactive TOPIRAMATE 50 MG ORAL TABLET 1 po BID for migraines TOPIRAMATE 50 MG ORAL TABLET 859595 TOPIRAMATE Inactive TEMAZEPAM 15 MG ORAL CAPSULE 1 TAB PO Q HS TEMAZEPAM 15 MG ORAL CAPSULE 101938 TEMAZEPAM Inactive IMDUR 60 MG ORAL TABLET EXTENDED RELEASE 24 HOUR take 1 tab po qday for blood pressure IMDUR 60 MG ORAL TABLET EXTENDED RELEASE 24 HOUR ISOSORBIDE MONONITRATE Inactive [id number] 0.3 MG/24HR TRANSDERMAL PATCH WEEKLY apply 2 patches q week for HTN [id number] 0.3 MG/24HR TRANSDERMAL PATCH WEEKLY 750891 CLONIDINE HCL Inactive ZITHROMAX 250 MG ORAL TABLET 2 po today, then 1 po q days 2-5 ZITHROMAX 250 MG ORAL TABLET 072537 AZITHROMYCIN Inactive TERBINAFINE HCL 250 MG ORAL TABLET 1 tab po qday for foot infection TERBINAFINE HCL 250 MG ORAL TABLET 077891 TERBINAFINE HCL Inactive KEFLEX 500 MG ORAL CAPSULE 1 po TID x 10 days KEFLEX 500 MG ORAL CAPSULE 075534 CEPHALEXIN Inactive BACTRIM DS 800-160 MG ORAL TABLET 1 tab by mouth twice daily 2015 BACTRIM DS 800-160 MG ORAL TABLET 891182 TRIMETHOPRIM- SULFAMETHOXAZOLE Inactive PREDNISONE 20 MG ORAL TABLET take 3 tabs daily for 3 days, 2 tabs daily for 3 days, 1 tab daily for 3 days, 1/2 tab daily for 4 days PREDNISONE 20 MG ORAL TABLET 308738 PREDNISONE Inactive AZITHROMYCIN 250 MG ORAL TABLET 2 po qd x 1 day, then 1 po qd x 4 days 09/20 AZITHROMYCIN 250 MG ORAL TABLET 723235 AZITHROMYCIN Inactive SINGULAIR 10 MG ORAL TABLET 1 po qday for allergies. SINGULAIR 10 MG ORAL TABLET 565194 MONTELUKAST SODIUM Inactive Advance Directives Directive Description [...] AUTO - Chemistry sodium, serum 142 mmol/L 592-364 6767/07/17 carbon dioxide, venous blood 28.2 mmol/L 21.0-32.0 [...] % 11.0-15.0 platelet count 185 THOUSAND/UL 10*3/mm3 815-113 2570/04/14 mean platelet volume 10.9 fL 7.5-12.5 Lab Report: Comp. Metabolic Panel - Chemistry sodium, serum 141 mmol/L 974-621 9831/02/13 carbon dioxide, venous blood 23.9 mmol/L 21.0-32.0 [...] 6.9 % 4.3-6.0 sodium, serum 139 mmol/L 469-587 2493/01/04 potassium, serum 3.9 mmol/L 3.5-5.2 chloride, serum 103 mmol/L 98-107 carbon dioxide, venous blood 26.9 mmol/L 21.0-32.0 blood glucose 106 mg/dL 65-110 calcium, serum 9.0 mg/dL 8.5-10.1 urea nitrogen, blood 20 mg/dL 7-18 creatinine, serum 1.46 mg/dL 0.60-1.30 Lab Report: LIPID PANEL, TSH/899, T4, FREE/866 - Chemistry cholesterol, serum 220 mg/dL 370-148 7898/04/14 HDL cholesterol, serum 30 mg/dL > OR=40 [...] 1.80 ng/mL 0.00-4.00 Lab Report: VITAMIN D, 25-HYDROXY/77241 - Chemistry vitamin D 25-hydroxy, serum 25 ng/mL 30-100 Office Visit: Confusion, dizziness after fall - Basic LDL target level 130 mg/dL Office Visit: Confusion, dizziness after fall - Chemistry HDL cholesterol, serum, target level 40 mg/dL triglyceride, target level 150 mg/dL cholesterol, target level 200 mg/dL Encounters Code Encounter Date Provider Facility CPT-39901 Level 4 Est. Patient 09:50:01 RN HOME HEALTH Robbie Busby MD [facility] CPT-33685 Level 4 Est. Patient 09:42:08 RN HOME HEALTH Robbie Busby MD [facility] CPT-10619 Level 4 Est. Patient 13:07:39 RN HOME HEALTH Robbie Busby MD [facility] CPT-21086 Level 4 Est. Patient 15:23:44 RN HOME HEALTH Desmond Diaz DO [facility] CPT-15641 Level 3 Est. Patient 15:40:49 CDT Robbie Busby MD [facility] CPT-46106 Level 4 Est. Patient 15:18:19 CDT Robbie Busby MD [facility] CPT-88613 Level 3 Est. Patient 09:00:37 CDT Rober Rodríguez APRN [facility] CPT-57038 Level 3 Est. Patient 16:07:10 CDT Robbie Busby MD [facility] CPT-75165 Level 4 Est. Patient 11:56:16 CDT Erin Mai [facility] CPT-54991 Level 3 Est. Patient 17:48:02 CDT Robbie Busby MD [facility] CPT-60096 Level 4 Est. Patient 12:00:49 RN HOME HEALTH Rober Rodolfoneha [facility] CPT-02305 Level 3 Est. Patient 09:16:37 CDT Robbie Busby MD [facility] CPT-00486 Level 3 Est. Patient 19:38:43 CDT Rbobie Busby MD [facility] CPT-90364 Level 3 Est. Patient 11:53:38 CDT Robbie Busby MD [facility] CPT-96917 Level 4 Est. Patient 12:52:22 CDT Rober Rodolfoneha [facility] CPT-68352 Level 4 Est. Patient 22:55:17 CDT Robbie Busby MD [facility] CPT-92461 Level 3 Est. Patient 12:38:24 CDT Desmond Diaz DO [facility] CPT-81968 Level 4 Est. Patient 11:25:03 RN HOME HEALTH Robbie Busby MD [facility] CPT-60587 Level 4 Est. Patient 14:50:10 CDT Robbie Busby MD [facility] CPT-74330 Level 4 Est. Patient 23:30:43 CDT Robbie Busby MD [facility] CPT-37362 Level 4 Est. Patient 10:30:43 CDT Robbie Busby MD [facility] CPT-43987 Level 3 Est. Patient 17:08:12 CDT Alex ALVAREZ [facility] CPT-31041 Level 4 Est. Patient 17:51:38 CDT Robbie Busby MD [facility] CPT-00091 Level 4 Est. Patient 14:00:21 CDT Robbie Busby MD [facility] CPT-08687 Level 4 Est. Patient 12:46:48 CDT Robbie Busby MD [facility] CPT-37996 Level 4 Est. Patient 13:34:33 CDT Robbie Busby MD [facility] CPT-97947 Level 4 Est. Patient 16:58:28 CDT Robbie Busby MD [facility] CPT-83586 Level 3 Est. Patient 19:36:53 CDT Alex ALVAREZ [facility] CPT-23070 Level 3 Est. Patient 12:58:15 CDT Robbie Busby MD [facility] Procedures Code Procedure Name Date Entry Date Standard Description CPT-J1071 Depo Testosterone 200mg 16:10:29 [facility] CPT-24765 Abx/Therapy Injection 16:10:29 [facility] CPT-J1071 Depo Testosterone 200mg 16:13:47 RN HOME HEALTH CPT-56079 Abx/Therapy Injection 16:13:46 [facility] CPT-J1071 Depo Testosterone 200mg 15:33:58 RN HOME HEALTH CPT-52907 Abx/Therapy Injection 15:33:58 [facility] CPT-J1071 Depo Testosterone 200mg 09:38:36 RN HOME HEALTH CPT-20188 Abx/Therapy Injection 09:38:36 RN HOME HEALTH CPT-J1071 Depo Testosterone 200mg 10:22:56 RN HOME HEALTH CPT-88521 Abx/Therapy Injection 10:22:56 RN HOME HEALTH CPT-J1071 Depo Testosterone 200mg 15:40:23 CDT CPT-91036 Abx/Therapy Injection 15:40:23 CDT CPT-J1071 Depo Testosterone 200mg 14:20:43 CDT CPT-75005 Abx/Therapy Injection 14:20:43 CDT CPT-J1071 Depo Testosterone 200mg 14:17:22 CDT CPT-11554 Abx/Therapy Injection 14:17:22 CDT CPT-J1071 Depo Testosterone 200mg 09:03:53 CDT CPT-98457 Abx/Therapy Injection 09:03:53 CDT CPT-G0439 [facility] Annual Wellness Exam 16:47:44 CDT CPT-J1071 Depo Testosterone 200mg 09:06:28 CDT CPT-77717 Abx/Therapy Injection 09:06:28 CDT CPT-J1071 Depo Testosterone 200mg 08:30:01 CDT CPT-50999 Abx/Therapy Injection 08:30:01 CDT CPT-J1071 Depo Testosterone 200mg 08:24:00 CDT CPT-17570 Abx/Therapy Injection 08:24:00 CDT CPT-90683 Venipuncture Draw Fee 14:39:06 CDT CPT-41317 Ribs unilateral 2V - XRAY USE ONLY 12:10:11 CDT CPT-05939 First Vx - Ix admin for Medicare patients 16:32:53 CDT CPT-95505 Boostrix Intramuscular Suspension 5-2.5-18.5 16:32:53 CDT CPT-88514 TB Skin Test 11:42:28 CDT CPT-94593 Tdap 7yrs or > 11:42:28 CDT CPT-J0696 Rocephin 1000 mg (Ceftriaxone) 17:43:43 RN HOME HEALTH CPT-J1040 Depo Medrol 80 mg (Methyl Prednisolone Acetate) 17:43: 43 RN HOME HEALTH CPT-J1100 Decadron 8mg (Dexamethasone) 17:43:42 RN HOME HEALTH CPT-33653 Abx/Therapy Injection 17:43:42 RN HOME HEALTH CPT-09729 Abx/Therapy Injection 17:43:42 RN HOME HEALTH CPT-J1040 Depo Medrol 80 mg (Methyl Prednisolone Acetate) 09:43: 34 RN HOME HEALTH CPT-J1100 Decadron 8mg (Dexamethasone) 09:43:34 RN HOME HEALTH CPT-J0696 Rocephin 1gm Inj Solr 09:43:34 RN HOME HEALTH CPT-31583 Wound Culture - LAB USE ONLY 14:00:21 CDT CPT-I/D I/D Abscess 09:16:37 CDT CPT-61234 Venipuncture Draw Fee 15:20:23 CDT CPT-86755 Microalbumin - LAB USE ONLY 16:02:19 CDT CPT-65387 CBC - LAB USE ONLY 16:02:19 CDT CPT-48528 Venipuncture Draw Fee 16:02:19 CDT CPT-G0438 Initial Annual Wellness Exam 08:10:28 CDT CPT-19344 Venipuncture Draw Fee 13:07:17 CDT CPT-G0008 Administration of Influenza Virus Vaccine 16:09:59 CDT CPT-11820 Fluzone Quadrivalent Intramuscular Suspension 0.5 ML 16: 09:59 CDT CPT-22568 Spec Collection and Handling Fee 15:05:50 CDT
--- OUTSIDE RECORDS SUMMARY | 2018-04-18 14:30 | XMS REPORT | Clinical Summary ---
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 Acute upper respiratory infections of [...] 1 tab po q am 2016 GUAIFENESIN 34509038093 No Longer Active Robbie Busby MD Active DIVALPROEX SODIUM ER 500 MG ORAL TABLET EXTENDED RELEASE 24 HOUR Once daily DIVALPROEX SODIUM 36179442676 Active Robbie Busby MD Active DEPO-TESTOSTERONE 200 MG/ML INTRAMUSCULAR SOLUTION 1 IM Injections every 2 weeks for low testosterone TESTOSTERONE CYPIONATE 03932673251 Active Zulema Blank LPN Active CYCLOBENZAPRINE HCL 10 MG ORAL TABLET 1 po TID PRN muscle spasm/pain for 10 days CYCLOBENZAPRINE HCL 27806691920 Active JONATHAN Moncada Active FLUTICASONE PROPIONATE 50 MCG/ACT NASAL SUSPENSION 2 sprays per nostril bid for 1 week, then 1 spray bid FLUTICASONE PROPIONATE 92896922656 Active Rober Rodríguez 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 HYDRALAZINE HCL 69096209713 Active Rober Rodríguez APRN Active VITAMIN D3 20148 UNIT ORAL TABLET 2 po weekly CHOLECALCIFEROL 61045048122 Active Robbie Busby MD Active OXYCODONE HCL ER 10 MG ORAL TABLET ER 12 HOUR ABUSE-DETERRENT 1 tab po 3 times qd. OXYCODONE HCL 09115084761 Active Robbie Busby MD Active NITROSTAT 0.4 MG SUBLINGUAL TABLET SUBLINGUAL PRN NITROGLYCERIN 59092305013 No Longer Active Robbie Busby MD Active LORATADINE 10 MG ORAL TABLET 1 tablet by mouth daily for congestion and allergies. LORATADINE 79823109739 No Longer Active Robbie Busby MD Active FLONASE 50 MCG/ACT NASAL SUSPENSION 1 spray each nostril twice daily for allergies and runny nose FLUTICASONE PROPIONATE 87153879416 No Longer Active Robbie Busby MD Active FIORICET 50-300-40 MG ORAL CAPSULE take 1 tab po qday prn migraines. [id number] 47935352485 No Longer Active Robbie Busby MD Active VITAMIN D3 46868 UNIT ORAL CAPSULE 2 CAPS PO WEEKLY CHOLECALCIFEROL 60426342015 No Longer Active Robbie Busby MD Active CYCLOBENZAPRINE HCL 10 MG ORAL TABLET 1 tablet by mouth three times daily as needed for muscle spasm/pain for 10 days CYCLOBENZAPRINE HCL 07393161592 No Longer Active Robbie Busby MD Active PREDNISONE 20 MG ORAL TABLET take 3 tabs daily for 3 days, 2 tabs daily for 3 days, 1 tab daily for 3 days, 1/2 tab daily for 4 days PREDNISONE 98816918950 No Longer Active Erin Garsia APRN Active CLONIDINE HCL 0.2 MG ORAL TABLET 1 TAB BY MOUTH EVERY 8 HOURS CLONIDINE HCL 29927233045 No Longer Active Erin Garsia APRN Active MECLIZINE HCL 25 MG ORAL TABLET one 4 times a day as needed for dizziness MECLIZINE HCL 48965541265 No Longer Active Erin Garsia APRN Active SPIRONOLACTONE 25 MG ORAL TABLET 4 tablets by mouth daily SPIRONOLACTONE 03881176578 No Longer Active Erin Garsia APRN Active LEVAQUIN 500 MG ORAL TABLET 1 tablet by mouth daily for 7 days LEVOFLOXACIN 34315401340 No Longer Active Erin Garsia APRN Active BACTRIM DS 800-160 MG ORAL TABLET 1 tab by mouth twice daily 2015 TRIMETHOPRIM-SULFAMETHOXAZOLE 24567542976 No Longer Active Robbie Busby MD Active HYDRALAZINE HCL 50 MG ORAL TABLET TWO BY MOUTH THREE TIMES DAILY HYDRALAZINE HCL 02698024242 No Longer Active Rober Rodríguez APRN Active HYDROCODONE-ACETAMINOPHEN 5-325 MG ORAL TABLET 1 tab by mouth BID prn back pain HYDROCODONE-ACETAMINOPHEN 77496024017 No Longer Active Jillld Rodríguez APRN Active HYDROCHLOROTHIAZIDE TABLET Take one by mouth daily HYDROCHLOROTHIAZIDE TABS 31771721852 No Longer Active Andrellld Rodríguez APRN Active LAMISIL 125 MG ORAL PACKET 1 TAB PO DAILY TERBINAFINE HCL 48642835604 No Longer Active Andrellld Rodríguez APRN Active TRILEPTAL 150 MG ORAL TABLET 1 TAB PO Q HS OXCARBAZEPINE 14473989749 No Longer Active Rober Rodríguez APRN Active BETADINE 10 % EXTERNAL SOLUTION wash with solution to treat follicultis 07/29 POVIDONE-IODINE 61410038443 No Longer Active Rober Rodríguez APRN Active NYSTATIN 490079 UNIT/ML MOUTH/THROAT SUSPENSION 5mL po QID x 10 days NYSTATIN 22212335635 No Longer Active Erin Garsia APRN Active PREDNISONE 20 MG ORAL TABLET 1 tablet twice daily for 2 days, then 1 tablet once daily for 2 days PREDNISONE 43462059658 No Longer Active Robbie Busby MD Active CEFDINIR 300 MG ORAL CAPSULE Take 1 cap po bid x 10 days CEFDINIR 44186448475 No Longer Active Robbie Busby MD Active AMLODIPINE BESYLATE 10 MG ORAL TABLET 1 tablet by mouth daily AMLODIPINE BESYLATE 28213854269 Active Robbie Busby MD Active CARVEDILOL 25 MG ORAL TABLET 1 & 1/2 TAB po BID CARVEDILOL 73379971837 Active Robbie Busby MD Active NEXIUM 40 MG ORAL CAPSULE DELAYED RELEASE 1 cap by mouth daily ESOMEPRAZOLE MAGNESIUM 71586984141 Active Robbie Busby MD Active PROTONIX 40 MG INTRAVENOUS SOLUTION RECONSTITUTED 1 po qday for acid reflux PANTOPRAZOLE SODIUM 76453594033 No Longer Active Gali Raida Active KEFLEX 500 MG ORAL CAPSULE 1 po TID x 10 days CEPHALEXIN 12043976093 No Longer Active Robbie Busby MD Active TOPIRAMATE 50 MG ORAL TABLET take 1 tab po BID for migraines. TOPIRAMATE 70812658759 Active Robbie Busby MD Active TEMAZEPAM 15 MG ORAL CAPSULE 1 TAB PO Q HS TEMAZEPAM 82837383131 Active Robbie Busby MD Active ALPRAZOLAM 2 MG ORAL TABLET 1 TAB PO BID ALPRAZOLAM 26661652446 Active Robbie Busby MD Active FENOFIBRATE 145 MG ORAL TABLET Take one by mouth daily FENOFIBRATE 16980284052 No Longer Active Robbie Busby MD Active SPIRONOLACTONE 50 MG ORAL TABLET 1 tablet by mouth twice a day SPIRONOLACTONE 89051511431 No Longer Active Robbie Busby MD Active HYDRALAZINE HCL 25 MG ORAL TABLET 1 tablet by mouth tid for hypertension 2013 HYDRALAZINE HCL 28873633971 No Longer Active Robbie Busby MD Active VIIBRYD 40 MG ORAL TABLET take 1 tab po qday for depression. 2014 VILAZODONE HCL 44770309138 No Longer Active Robbie Busby MD Active TERBINAFINE HCL 250 MG ORAL TABLET 1 tab po qday for foot infection TERBINAFINE HCL 68914244110 No Longer Active Robbie Busby MD Active GABAPENTIN 300 MG ORAL CAPSULE 1 po q hs for nerve pain GABAPENTIN 91764843912 Active Robbie Busby MD Active CHERATUSSIN AC 100-10 MG/5ML ORAL SOLUTION 7.5 mL PO q 4-6 hrs PRN cough 2014 GUAIFENESIN-CODEINE 23064436012 No Longer Active Robbie Busby MD Active AZITHROMYCIN 250 MG ORAL TABLET 2 tablets PO today---then, 1 tablet PO daily x 4 more days (and 1 optional refill) AZITHROMYCIN 75189673684 No Longer Active Robbie Busby MD Active NORVASC 10 MG ORAL TABLET 1 tablet by mouth daily AMLODIPINE BESYLATE 88713109213 No Longer Active Alex ALVAREZ Active IMDUR 60 MG ORAL TABLET EXTENDED RELEASE 24 HOUR take 1 tab po qday for blood pressure ISOSORBIDE MONONITRATE 14473709576 Active Robbie Busby MD Active ISOSORBIDE DINITRATE 30 MG ORAL TABLET Take one by mouth daily ISOSORBIDE DINITRATE 91764554342 No Longer Active Robbie Busby MD Active VIIBRYD 40 MG ORAL TABLET 1 TA B PO DAILY VILAZODONE HCL 13280316559 Active Robbie Busby MD Active ZITHROMAX 250 MG ORAL TABLET 2 po today, then 1 po q days 2-5 AZITHROMYCIN 86215547248 No Longer Active Robbie Busby MD Active [id number] 0.3 MG/24HR TRANSDERMAL PATCH WEEKLY apply 2 patches q week for HTN CLONIDINE HCL 74908636559 Active Robbie Busby MD Active DOXAZOSIN MESYLATE 4 MG ORAL TABLET Take one by mouth daily DOXAZOSIN MESYLATE 98492785241 Active Robbie Busby MD Active TOPROL XL 200 MG ORAL TABLET EXTENDED RELEASE 24 HOUR Take one by mouth daily METOPROLOL SUCCINATE 10176369296 Active Robbie Busby MD Active VENLAFAXINE HCL ER 150 MG ORAL TABLET EXTENDED RELEASE 24 HOUR Take one by mouth daily VENLAFAXINE HCL 73421398037 Active Robbie Busby MD Active LIPITOR 40 MG ORAL TABLET Take one by mouth daily ATORVASTATIN CALCIUM 86179333741 Active Robbie Busby MD Active ISOSORBIDE DINITRATE 30 MG ORAL TABLET Take one by mouth daily ISOSORBIDE DINITRATE 30 MG ORAL TABLET 139921 ISOSORBIDE DINITRATE Inactive NORVASC 10 MG ORAL TABLET 1 tablet by mouth daily NORVASC 10 MG ORAL TABLET 743137 AMLODIPINE BESYLATE Inactive AZITHROMYCIN 250 MG ORAL TABLET 2 tablets PO today---then, 1 tablet PO daily x 4 more days (and 1 optional refill) AZITHROMYCIN 250 MG ORAL TABLET 933434 AZITHROMYCIN Inactive CHERATUSSIN AC 100-10 MG/5ML ORAL SOLUTION 7.5 mL PO q 4-6 hrs PRN cough 2014 CHERATUSSIN AC 100-10 MG/5ML ORAL SOLUTION 134992 GUAIFENESIN-CODEINE Inactive VIIBRYD 40 MG ORAL TABLET take 1 tab po qday for depression. 2014 VIIBRYD 40 MG ORAL TABLET VILAZODONE HCL Inactive HYDRALAZINE HCL 25 MG ORAL TABLET 1 tablet by mouth tid for hypertension 2013 HYDRALAZINE HCL 25 MG ORAL TABLET 159732 HYDRALAZINE HCL Inactive SPIRONOLACTONE 50 MG ORAL TABLET 1 tablet by mouth twice a day SPIRONOLACTONE 50 MG ORAL TABLET 573408 SPIRONOLACTONE Inactive FENOFIBRATE 145 MG ORAL TABLET Take one by mouth daily FENOFIBRATE 145 MG ORAL TABLET 589580 FENOFIBRATE Inactive PROTONIX 40 MG INTRAVENOUS SOLUTION RECONSTITUTED 1 po qday for acid reflux PROTONIX 40 MG INTRAVENOUS SOLUTION RECONSTITUTED 891847 PANTOPRAZOLE SODIUM Inactive CEFDINIR 300 MG ORAL CAPSULE Take 1 cap po bid x 10 days CEFDINIR 300 MG ORAL CAPSULE 738950 CEFDINIR Inactive PREDNISONE 20 MG ORAL TABLET 1 tablet twice daily for 2 days, then 1 tablet once daily for 2 days PREDNISONE 20 MG ORAL TABLET 072266 PREDNISONE Inactive NYSTATIN 795120 UNIT/ML MOUTH/THROAT SUSPENSION 5mL po QID x 10 days NYSTATIN 840911 UNIT/ML MOUTH/THROAT SUSPENSION 479848 NYSTATIN Inactive BETADINE 10 % EXTERNAL SOLUTION wash with solution to treat follicultis 07/29 BETADINE 10 % EXTERNAL SOLUTION 0421039 POVIDONE-IODINE Inactive TRILEPTAL 150 MG ORAL TABLET 1 TAB PO Q HS TRILEPTAL 150 MG ORAL TABLET 242017 OXCARBAZEPINE Inactive LAMISIL 125 MG ORAL PACKET 1 TAB PO DAILY LAMISIL 125 MG ORAL PACKET TERBINAFINE HCL Inactive HYDROCHLOROTHIAZIDE TABLET Take one by mouth daily HYDROCHLOROTHIAZIDE TABLET HYDROCHLOROTHIAZIDE TABS Inactive HYDROCODONE-ACETAMINOPHEN 5-325 MG ORAL TABLET 1 tab by mouth BID prn back pain HYDROCODONE-ACETAMINOPHEN 5-325 MG ORAL TABLET 131910 HYDROCODONE-ACETAMINOPHEN Inactive HYDRALAZINE HCL 50 MG ORAL TABLET TWO BY MOUTH THREE TIMES DAILY HYDRALAZINE HCL 50 MG ORAL TABLET 071459 HYDRALAZINE HCL Inactive LEVAQUIN 500 MG ORAL TABLET 1 tablet by mouth daily for 7 days LEVAQUIN 500 MG ORAL TABLET 880684 LEVOFLOXACIN Inactive SPIRONOLACTONE 25 MG ORAL TABLET 4 tablets by mouth daily SPIRONOLACTONE 25 MG ORAL TABLET 416042 SPIRONOLACTONE Inactive MECLIZINE HCL 25 MG ORAL TABLET one 4 times a day as needed for dizziness MECLIZINE HCL 25 MG ORAL TABLET 036736 MECLIZINE HCL Inactive CLONIDINE HCL 0.2 MG ORAL TABLET 1 TAB BY MOUTH EVERY 8 HOURS CLONIDINE HCL 0.2 MG ORAL TABLET 843013 CLONIDINE HCL Inactive CYCLOBENZAPRINE HCL 10 MG ORAL TABLET 1 tablet by mouth three times daily as needed for muscle spasm/pain for 10 days CYCLOBENZAPRINE HCL 10 MG ORAL TABLET 090964 CYCLOBENZAPRINE HCL Inactive VITAMIN D3 86714 UNIT ORAL CAPSULE 2 CAPS PO WEEKLY VITAMIN D3 23794 UNIT ORAL CAPSULE CHOLECALCIFEROL Inactive FIORICET 50-300-40 MG ORAL CAPSULE take 1 tab po qday prn migraines. FIORICET 50-300-40 MG ORAL CAPSULE 180446 BUTALBITAL-APAP- CAFFEINE Inactive FLONASE 50 MCG/ACT NASAL SUSPENSION 1 spray each nostril twice daily for allergies and runny nose FLONASE 50 MCG/ACT NASAL SUSPENSION 1816291 FLUTICASONE PROPIONATE Inactive LORATADINE 10 MG ORAL TABLET 1 tablet by mouth daily for congestion and allergies. LORATADINE 10 MG ORAL TABLET 825484 LORATADINE Inactive NITROSTAT 0.4 MG SUBLINGUAL TABLET SUBLINGUAL PRN NITROSTAT 0.4 MG SUBLINGUAL TABLET SUBLINGUAL 596576 NITROGLYCERIN Inactive GUAIFENESIN ER 600 MG ORAL TABLET EXTENDED RELEASE 12 HOUR 1 tab po q am 2016 GUAIFENESIN ER 600 MG ORAL TABLET EXTENDED RELEASE 12 HOUR GUAIFENESIN Inactive ZITHROMAX 250 MG ORAL TABLET 2 po today, then 1 po q days 2-5 ZITHROMAX 250 MG ORAL TABLET 090882 AZITHROMYCIN Inactive TERBINAFINE HCL 250 MG ORAL TABLET 1 tab po qday for foot infection TERBINAFINE HCL 250 MG ORAL TABLET 206165 TERBINAFINE HCL Inactive KEFLEX 500 MG ORAL CAPSULE 1 po TID x 10 days KEFLEX 500 MG ORAL CAPSULE 568997 CEPHALEXIN Inactive BACTRIM DS 800-160 MG ORAL TABLET 1 tab by mouth twice daily 2015 BACTRIM DS 800-160 MG ORAL TABLET 281027 TRIMETHOPRIM- SULFAMETHOXAZOLE Inactive PREDNISONE 20 MG ORAL TABLET take 3 tabs daily for 3 days, 2 tabs daily for 3 days, 1 tab daily for 3 days, 1/2 tab daily for 4 days PREDNISONE 20 MG ORAL TABLET 345869 PREDNISONE Inactive Advance Directives Directive Description Start [...] AUTO - Chemistry sodium, serum 142 mmol/L 647-896 6171/07/17 carbon dioxide, venous blood 28.2 mmol/L 21.0-32.0 [...] % 11.0-15.0 platelet count 185 THOUSAND/UL 10*3/mm3 636-844 1551/04/14 mean platelet volume 10.9 fL 7.5-12.5 Lab Report: LIPID PANEL, TSH/899, T4, FREE/866 - Chemistry cholesterol, serum 220 mg/dL 530-349 2428/04/14 HDL cholesterol, serum 30 mg/dL > OR=40 [...] 1.80 ng/mL 0.00-4.00 Lab Report: VITAMIN D, 25-HYDROXY/47380 - Chemistry vitamin D 25-hydroxy, serum 25 ng/mL 30-100 Office Visit: Confusion, dizziness after fall - Basic LDL target level 130 mg/dL Office Visit: Confusion, dizziness after fall - Chemistry HDL cholesterol, serum, target level 40 mg/dL triglyceride, target level 150 mg/dL cholesterol, target level 200 mg/dL Encounters Code Encounter Date Provider Facility CPT-33116 Level 3 Est. Patient 15:40:49 CDT Robbie Busby MD [facility] CPT-80155 Level 4 Est. Patient 15:18:19 CDT Robbie Busby MD [facility] CPT-22369 Level 3 Est. Patient 09:00:37 CDT Rober Rodríguez [facility] CPT-53620 Level 3 Est. Patient 16:07:10 CDT Robbie Busby MD [facility] CPT-97764 Level 4 Est. Patient 11:56:16 CDT Erin Garsia [facility] CPT-10411 Level 3 Est. Patient 17:48:02 CDT Robbie Busby MD [facility] CPT-03769 Level 4 Est. 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 Patient 09:16:37 CDT Robbie Busby MD [facility] CPT-70466 Level 3 Est. Patient 19:38:43 CDT Robbie Busby MD [facility] CPT-75219 Level 3 Est. Patient 11:53:38 CDT Robbie Busby MD [facility] CPT-54055 Level 4 Est. Patient 12:52:22 CDT Rober Rodríguez [facility] CPT-82918 Level 4 Est. Patient 22:55:17 CDT Robbie Busby MD [facility] CPT-51723 Level 3 Est. Patient 12:38:24 CDT Desmond Diaz DO [facility] CPT-88082 Level 4 Est. 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 Patient 14:50:10 CDT Robbie Busby MD [facility] CPT-72185 Level 4 Est. Patient 23:30:43 CDT Robbie Busby MD [facility] CPT-83368 Level 4 Est. Patient 10:30:43 CDT Robbie Busby MD [facility] CPT-77835 Level 3 Est. Patient 17:08:12 CDT Alex ALVAREZ [facility] CPT-58100 Level 4 Est. Patient 17:51:38 CDT Robbie Busby MD [facility] CPT-70214 Level 4 Est. Patient 14:00:21 CDT Robbie Busby MD [facility] CPT-04158 Level 4 Est. Patient 12:46:48 CDT Robbie Busby MD [facility] CPT-35072 Level 4 Est. Patient 13:34:33 CDT Robbie Busby MD [facility] CPT-10709 Level 4 Est. Patient 16:58:28 CDT Robbie Busby MD [facility] CPT-15799 Level 3 Est. Patient 19:36:53 CDT Alex Shaw [facility] CPT-45724 Level 3 Est. 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 SPLICER APPRENTICE CPT-87836 Abx/Therapy Injection 10:22:56 CABLE SPLICER APPRENTICE CPT-J1071 Depo Testosterone 200mg 15:40:23 CDT CPT-09122 Abx/Therapy Injection 15:40:23 CDT CPT-J1071 Depo Testosterone 200mg 14:20:43 CDT CPT-05835 Abx/Therapy Injection 14:20:43 CDT CPT-J1071 Depo Testosterone 200mg 14:17:22 CDT CPT-15255 Abx/Therapy Injection 14:17:22 CDT CPT-J1071 Depo Testosterone 200mg 09:03:53 CDT CPT-51018 Abx/Therapy Injection 09:03:53 CDT CPT-G0439 [facility] Annual Wellness Exam 16:47:44 CDT CPT-J1071 Depo Testosterone 200mg 09:06:28 CDT CPT-85929 Abx/Therapy Injection 09:06:28 CDT CPT-J1071 Depo Testosterone 200mg 08:30:01 CDT CPT-44527 Abx/Therapy Injection 08:30:01 CDT CPT-J1071 Depo Testosterone 200mg 08:24:00 CDT CPT-23820 Abx/Therapy Injection 08:24:00 CDT CPT-18464 Venipuncture Draw Fee 14:39:06 CDT CPT-48081 Ribs unilateral 2V - XRAY USE ONLY 12:10:11 CDT CPT-99486 First Vx - Ix admin for Medicare patients 16:32:53 CDT CPT-81547 Boostrix Intramuscular Suspension 5-2.5-18.5 16:32:53 CDT CPT-39566 TB Skin Test 11:42:28 CDT CPT-37949 Tdap 7yrs or > 11:42:28 CDT CPT-J0696 Rocephin 1000 mg (Ceftriaxone) 17:43:43 CABLE SPLICER APPRENTICE CPT-J1040 Depo Medrol 80 mg (Methyl Prednisolone Acetate) 17:43: 43 CABLE SPLICER APPRENTICE CPT-J1100 Decadron 8mg (Dexamethasone) 17:43:42 CABLE SPLICER APPRENTICE CPT-71238 Abx/Therapy Injection 17:43:42 CABLE SPLICER APPRENTICE CPT-53119 Abx/Therapy Injection 17:43:42 CABLE SPLICER APPRENTICE CPT-J1040 Depo Medrol 80 mg (Methyl Prednisolone Acetate) 09:43: 34 CABLE SPLICER APPRENTICE CPT-J1100 Decadron 8mg (Dexamethasone) 09:43:34 CABLE SPLICER APPRENTICE CPT-J0696 Rocephin 1gm Inj Solr 09:43:34 CABLE SPLICER APPRENTICE CPT-54780 Wound Culture - LAB USE ONLY 14:00:21 CDT CPT-I/D I/D Abscess 09:16:37 CDT CPT-73321 Venipuncture Draw Fee 15:20:23 CDT CPT-10678 Microalbumin - LAB USE ONLY 16:02:19 CDT CPT-83724 CBC - LAB USE ONLY 16:02:19 CDT CPT-44614 Venipuncture Draw Fee 16:02:19 CDT CPT-G0438 Initial Annual Wellness Exam 08:10:28 CDT CPT-06044 Venipuncture Draw Fee 13:07:17 CDT CPT-G0008 Administration of Influenza Virus Vaccine 16:09:59 CDT CPT-37036 Fluzone Quadrivalent Intramuscular Suspension 0.5 ML 16: 09:59 CDT CPT-72511 Spec Collection and Handling Fee 15:05:50 CDT
--- OUTSIDE RECORDS SUMMARY | 2018-04-18 14:33 | XMS REPORT | Clinical Summary ---
Author Author Admin, AKUA Organization [employer] 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 Acute upper respiratory infections of unspecified [...] pain, chronic 724.2 Active Robbie Busby MD [facility] Medication List Medication Instructions Start Date Stop Date Generic Name NDC Status Provider Patient Instruction GUAIFENESIN ER 600 MG ORAL TABLET EXTENDED RELEASE 12 HOUR 1 tab po q am 2016 GUAIFENESIN [id number] No Longer Active Robbie Busby MD Active DIVALPROEX SODIUM ER 500 MG ORAL TABLET EXTENDED RELEASE 24 HOUR Once daily DIVALPROEX SODIUM 45256246615 Active Robbie Busby MD Active DEPO-TESTOSTERONE 200 MG/ML INTRAMUSCULAR SOLUTION 1 IM Injections every 2 weeks for low testosterone TESTOSTERONE CYPIONATE 45349704071 Active Zulema Blank LPN Active CYCLOBENZAPRINE HCL 10 MG ORAL TABLET 1 po TID PRN muscle spasm/pain for 10 days CYCLOBENZAPRINE HCL 98705293797 Active JONATHAN Moncada Active FLUTICASONE PROPIONATE 50 MCG/ACT NASAL SUSPENSION 2 sprays per nostril bid for 1 week, then 1 spray bid FLUTICASONE PROPIONATE 53023982930 Active Rober Rodríguez LEAD MECHANIC Active HYDRALAZINE HCL 25 MG ORAL TABLET Take 1 tab BID. HYDRALAZINE HCL 57829276261 Active Rober Rodríguez APRN Active VITAMIN D3 50807 UNIT ORAL TABLET 2 po weekly CHOLECALCIFEROL 61135524034 Active Robbie Busby MD Active OXYCODONE HCL ER 10 MG ORAL TABLET ER 12 HOUR ABUSE-DETERRENT 1 tab po 3 times qd. OXYCODONE HCL 87762728149 Active Robbie Busby MD Active NITROSTAT 0.4 MG SUBLINGUAL TABLET SUBLINGUAL PRN NITROGLYCERIN 10302461824 No Longer Active Robbie Busby MD Active LORATADINE 10 MG ORAL TABLET 1 tablet by mouth daily for congestion and allergies. LORATADINE 39697606899 No Longer Active Robbie Busby MD Active FLONASE 50 MCG/ACT NASAL SUSPENSION 1 spray each nostril twice daily for allergies and runny nose FLUTICASONE PROPIONATE 33250574410 No Longer Active Robbie Busby MD Active FIORICET 50-300-40 MG ORAL CAPSULE take 1 tab po qday prn migraines. [id number] 72707644101 No Longer Active Robbie Busby MD Active VITAMIN D3 95262 UNIT ORAL CAPSULE 2 CAPS PO WEEKLY CHOLECALCIFEROL 44682029756 No Longer Active Robbie Busby MD Active CYCLOBENZAPRINE HCL 10 MG ORAL TABLET 1 tablet by mouth three times daily as needed for muscle spasm/pain for 10 days CYCLOBENZAPRINE HCL 09914146002 No Longer Active Robbie Busby MD Active PREDNISONE 20 MG ORAL TABLET take 3 tabs daily for 3 days, 2 tabs daily for 3 days, 1 tab daily for 3 days, 1/2 tab daily for 4 days PREDNISONE 16677971553 No Longer Active Erin Garsia APRN Active CLONIDINE HCL 0.2 MG ORAL TABLET 1 TAB BY MOUTH EVERY 8 HOURS CLONIDINE HCL 51923953865 No Longer Active Erin Garsia APRN Active MECLIZINE HCL 25 MG ORAL TABLET one 4 times a day as needed for dizziness MECLIZINE HCL 87450262554 No Longer Active Erin Garsia APRN Active SPIRONOLACTONE 25 MG ORAL TABLET 4 tablets by mouth daily SPIRONOLACTONE 21805328005 No Longer Active Erin Garsia APRN Active LEVAQUIN 500 MG ORAL TABLET 1 tablet by mouth daily for 7 days LEVOFLOXACIN 49785329925 No Longer Active Erin Garsia APRN Active BACTRIM DS 800-160 MG ORAL TABLET 1 tab by mouth twice daily 2015 TRIMETHOPRIM-SULFAMETHOXAZOLE 59943711413 No Longer Active Robbie Busby MD Active HYDRALAZINE HCL 50 MG ORAL TABLET TWO BY MOUTH THREE TIMES DAILY HYDRALAZINE HCL 97861111909 No Longer Active Rober Rodríguez APRN Active HYDROCODONE-ACETAMINOPHEN 5-325 MG ORAL TABLET 1 tab by mouth BID prn back pain HYDROCODONE-ACETAMINOPHEN 86345577126 No Longer Active Jillld Rodríguez APRN Active HYDROCHLOROTHIAZIDE TABLET Take one by mouth daily HYDROCHLOROTHIAZIDE TABS 76572679769 No Longer Active Andrellld Rodríguez APRN Active LAMISIL 125 MG ORAL PACKET 1 TAB PO DAILY TERBINAFINE HCL 78917579547 No Longer Active Andrellld Rodríguez APRN Active TRILEPTAL 150 MG ORAL TABLET 1 TAB PO Q HS OXCARBAZEPINE 15586991515 No Longer Active Rober Rodríguez APRN Active BETADINE 10 % EXTERNAL SOLUTION wash with solution to treat follicultis 07/29 POVIDONE-IODINE 86764139610 No Longer Active Rober Rodríguez APRN Active NYSTATIN 567273 UNIT/ML MOUTH/THROAT SUSPENSION 5mL po QID x 10 days NYSTATIN 50012302778 No Longer Active Erin Garsia APRN Active PREDNISONE 20 MG ORAL TABLET 1 tablet twice daily for 2 days, then 1 tablet once daily for 2 days PREDNISONE 56994939778 No Longer Active Robbie Busby MD Active CEFDINIR 300 MG ORAL CAPSULE Take 1 cap po bid x 10 days CEFDINIR 33989023904 No Longer Active Robbie Busby MD Active AMLODIPINE BESYLATE 10 MG ORAL TABLET 1 tablet by mouth daily AMLODIPINE BESYLATE 92442458393 Active Robbie Busby MD Active CARVEDILOL 25 MG ORAL TABLET 1 & 1/2 TAB po BID CARVEDILOL 27249891381 Active Robbie Busby MD Active NEXIUM 40 MG ORAL CAPSULE DELAYED RELEASE 1 cap by mouth daily ESOMEPRAZOLE MAGNESIUM 07930182569 Active Robbie Busby MD Active PROTONIX 40 MG INTRAVENOUS SOLUTION RECONSTITUTED 1 po qday for acid reflux PANTOPRAZOLE SODIUM 95221756232 No Longer Active Gali Raida Active KEFLEX 500 MG ORAL CAPSULE 1 po TID x 10 days CEPHALEXIN 37737648164 No Longer Active Robbie Busby MD Active TOPIRAMATE 50 MG ORAL TABLET take 1 tab po BID for migraines. TOPIRAMATE 40576116181 Active Robbie Busby MD Active TEMAZEPAM 15 MG ORAL CAPSULE 1 TAB PO Q HS TEMAZEPAM 87347613568 Active Robbie Busby MD Active ALPRAZOLAM 2 MG ORAL TABLET 1 TAB PO BID ALPRAZOLAM 42544713737 Active Robbie Busby MD Active FENOFIBRATE 145 MG ORAL TABLET Take one by mouth daily FENOFIBRATE 84339966947 No Longer Active Robbie Busby MD Active SPIRONOLACTONE 50 MG ORAL TABLET 1 tablet by mouth twice a day SPIRONOLACTONE 36968690339 No Longer Active Robbie Busby MD Active HYDRALAZINE HCL 25 MG ORAL TABLET 1 tablet by mouth tid for hypertension 2013 HYDRALAZINE HCL 39734001928 No Longer Active Robbie Busby MD Active VIIBRYD 40 MG ORAL TABLET take 1 tab po qday for depression. 2014 VILAZODONE HCL 31744348877 No Longer Active Robbie Busby MD Active TERBINAFINE HCL 250 MG ORAL TABLET 1 tab po qday for foot infection TERBINAFINE HCL 91721991866 No Longer Active Robbie Busby MD Active GABAPENTIN 300 MG ORAL CAPSULE 1 po q hs for nerve pain GABAPENTIN 88251649522 Active Robbie Busby MD Active CHERATUSSIN AC 100-10 MG/5ML ORAL SOLUTION 7.5 mL PO q 4-6 hrs PRN cough 2014 GUAIFENESIN-CODEINE 63589661434 No Longer Active Robbie Busby MD Active AZITHROMYCIN 250 MG ORAL TABLET 2 tablets PO today---then, 1 tablet PO daily x 4 more days (and 1 optional refill) AZITHROMYCIN 39230384691 No Longer Active Robbie Busby MD Active NORVASC 10 MG ORAL TABLET 1 tablet by mouth daily AMLODIPINE BESYLATE 82590789081 No Longer Active Alex ALVAREZ Active IMDUR 60 MG ORAL TABLET EXTENDED RELEASE 24 HOUR take 1 tab po qday for blood pressure ISOSORBIDE MONONITRATE 53487557376 Active Robbie Busby MD Active ISOSORBIDE DINITRATE 30 MG ORAL TABLET Take one by mouth daily ISOSORBIDE DINITRATE 61400468554 No Longer Active Robbie Busby MD Active VIIBRYD 40 MG ORAL TABLET 1 TA B PO DAILY VILAZODONE HCL 76191640593 Active Robbie Busby MD Active ZITHROMAX 250 MG ORAL TABLET 2 po today, then 1 po q days 2-5 AZITHROMYCIN 99569115388 No Longer Active Robbie Busby MD Active [id number] 0.3 MG/24HR TRANSDERMAL PATCH WEEKLY apply 2 patches q week for HTN CLONIDINE HCL 25525966068 Active Robbie Busby MD Active DOXAZOSIN MESYLATE 4 MG ORAL TABLET Take one by mouth daily DOXAZOSIN MESYLATE 21445476201 Active Robbie Busby MD Active TOPROL XL 200 MG ORAL TABLET EXTENDED RELEASE 24 HOUR Take one by mouth daily METOPROLOL SUCCINATE 91582665399 Active Robbie Busby MD Active VENLAFAXINE HCL ER 150 MG ORAL TABLET EXTENDED RELEASE 24 HOUR Take one by mouth daily VENLAFAXINE HCL 14725483042 Active Robbie Busby MD Active LIPITOR 40 MG ORAL TABLET Take one by mouth daily ATORVASTATIN CALCIUM 93153671177 Active Robbie Busby MD Active ISOSORBIDE DINITRATE 30 MG ORAL TABLET Take one by mouth daily ISOSORBIDE DINITRATE 30 MG ORAL TABLET 579782 ISOSORBIDE DINITRATE Inactive NORVASC 10 MG ORAL TABLET 1 tablet by mouth daily NORVASC 10 MG ORAL TABLET 657556 AMLODIPINE BESYLATE Inactive AZITHROMYCIN 250 MG ORAL TABLET 2 tablets PO today---then, 1 tablet PO daily x 4 more days (and 1 optional refill) AZITHROMYCIN 250 MG ORAL TABLET 189846 AZITHROMYCIN Inactive CHERATUSSIN AC 100-10 MG/5ML ORAL SOLUTION 7.5 mL PO q 4-6 hrs PRN cough 2014 CHERATUSSIN AC 100-10 MG/5ML ORAL SOLUTION 749545 GUAIFENESIN-CODEINE Inactive VIIBRYD 40 MG ORAL TABLET take 1 tab po qday for depression. 2014 VIIBRYD 40 MG ORAL TABLET VILAZODONE HCL Inactive HYDRALAZINE HCL 25 MG ORAL TABLET 1 tablet by mouth tid for hypertension 2013 HYDRALAZINE HCL 25 MG ORAL TABLET 773682 HYDRALAZINE HCL Inactive SPIRONOLACTONE 50 MG ORAL TABLET 1 tablet by mouth twice a day SPIRONOLACTONE 50 MG ORAL TABLET 792046 SPIRONOLACTONE Inactive FENOFIBRATE 145 MG ORAL TABLET Take one by mouth daily FENOFIBRATE 145 MG ORAL TABLET 897214 FENOFIBRATE Inactive PROTONIX 40 MG INTRAVENOUS SOLUTION RECONSTITUTED 1 po qday for acid reflux PROTONIX 40 MG INTRAVENOUS SOLUTION RECONSTITUTED 725852 PANTOPRAZOLE SODIUM Inactive CEFDINIR 300 MG ORAL CAPSULE Take 1 cap po bid x 10 days CEFDINIR 300 MG ORAL CAPSULE 704138 CEFDINIR Inactive PREDNISONE 20 MG ORAL TABLET 1 tablet twice daily for 2 days, then 1 tablet once daily for 2 days PREDNISONE 20 MG ORAL TABLET 434262 PREDNISONE Inactive NYSTATIN 206316 UNIT/ML MOUTH/THROAT SUSPENSION 5mL po QID x 10 days NYSTATIN 984752 UNIT/ML MOUTH/THROAT SUSPENSION 425791 NYSTATIN Inactive BETADINE 10 % EXTERNAL SOLUTION wash with solution to treat follicultis 07/29 BETADINE 10 % EXTERNAL SOLUTION 5341994 POVIDONE-IODINE Inactive TRILEPTAL 150 MG ORAL TABLET 1 TAB PO Q HS TRILEPTAL 150 MG ORAL TABLET 350545 OXCARBAZEPINE Inactive LAMISIL 125 MG ORAL PACKET 1 TAB PO DAILY LAMISIL 125 MG ORAL PACKET TERBINAFINE HCL Inactive HYDROCHLOROTHIAZIDE TABLET Take one by mouth daily HYDROCHLOROTHIAZIDE TABLET HYDROCHLOROTHIAZIDE TABS Inactive HYDROCODONE-ACETAMINOPHEN 5-325 MG ORAL TABLET 1 tab by mouth BID prn back pain HYDROCODONE-ACETAMINOPHEN 5-325 MG ORAL TABLET 513790 HYDROCODONE-ACETAMINOPHEN Inactive HYDRALAZINE HCL 50 MG ORAL TABLET TWO BY MOUTH THREE TIMES DAILY HYDRALAZINE HCL 50 MG ORAL TABLET 633666 HYDRALAZINE HCL Inactive LEVAQUIN 500 MG ORAL TABLET 1 tablet by mouth daily for 7 days LEVAQUIN 500 MG ORAL TABLET 549188 LEVOFLOXACIN Inactive SPIRONOLACTONE 25 MG ORAL TABLET 4 tablets by mouth daily SPIRONOLACTONE 25 MG ORAL TABLET 076618 SPIRONOLACTONE Inactive MECLIZINE HCL 25 MG ORAL TABLET one 4 times a day as needed for dizziness MECLIZINE HCL 25 MG ORAL TABLET 293542 MECLIZINE HCL Inactive CLONIDINE HCL 0.2 MG ORAL TABLET 1 TAB BY MOUTH EVERY 8 HOURS CLONIDINE HCL 0.2 MG ORAL TABLET 450635 CLONIDINE HCL Inactive CYCLOBENZAPRINE HCL 10 MG ORAL TABLET 1 tablet by mouth three times daily as needed for muscle spasm/pain for 10 days CYCLOBENZAPRINE HCL 10 MG ORAL TABLET 068202 CYCLOBENZAPRINE HCL Inactive VITAMIN D3 30451 UNIT ORAL CAPSULE 2 CAPS PO WEEKLY VITAMIN D3 10560 UNIT ORAL CAPSULE CHOLECALCIFEROL Inactive FIORICET 50-300-40 MG ORAL CAPSULE take 1 tab po qday prn migraines. FIORICET 50-300-40 MG ORAL CAPSULE 861162 BUTALBITAL-APAP- CAFFEINE Inactive FLONASE 50 MCG/ACT NASAL SUSPENSION 1 spray each nostril twice daily for allergies and runny nose FLONASE 50 MCG/ACT NASAL SUSPENSION 4675971 FLUTICASONE PROPIONATE Inactive LORATADINE 10 MG ORAL TABLET 1 tablet by mouth daily for congestion and allergies. LORATADINE 10 MG ORAL TABLET 045127 LORATADINE Inactive NITROSTAT 0.4 MG SUBLINGUAL TABLET SUBLINGUAL PRN NITROSTAT 0.4 MG SUBLINGUAL TABLET SUBLINGUAL 413169 NITROGLYCERIN Inactive GUAIFENESIN ER 600 MG ORAL TABLET EXTENDED RELEASE 12 HOUR 1 tab po q am 2016 GUAIFENESIN ER 600 MG ORAL TABLET EXTENDED RELEASE 12 HOUR GUAIFENESIN Inactive ZITHROMAX 250 MG ORAL TABLET 2 po today, then 1 po q days 2-5 ZITHROMAX 250 MG ORAL TABLET 134218 AZITHROMYCIN Inactive TERBINAFINE HCL 250 MG ORAL TABLET 1 tab po qday for foot infection TERBINAFINE HCL 250 MG ORAL TABLET 735735 TERBINAFINE HCL Inactive KEFLEX 500 MG ORAL CAPSULE 1 po TID x 10 days KEFLEX 500 MG ORAL CAPSULE 577677 CEPHALEXIN Inactive BACTRIM DS 800-160 MG ORAL TABLET 1 tab by mouth twice daily 2015 BACTRIM DS 800-160 MG ORAL TABLET 961217 TRIMETHOPRIM- SULFAMETHOXAZOLE Inactive PREDNISONE 20 MG ORAL TABLET take 3 tabs daily for 3 days, 2 tabs daily for 3 days, 1 tab daily for 3 days, 1/2 tab daily for 4 days PREDNISONE 20 MG ORAL TABLET 363198 PREDNISONE Inactive Advance Directives Directive Description Start [...] AUTO - Chemistry sodium, serum 142 mmol/L 782-577 2141/07/17 carbon dioxide, venous blood 28.2 mmol/L [...] % 11.0-15.0 platelet count 185 THOUSAND/UL 10*3/mm3 490-755 4393/04/14 mean platelet volume 10.9 fL 7.5-12.5 Lab Report: LIPID PANEL, TSH/899, T4, FREE/866 - Chemistry cholesterol, serum 220 mg/dL 493-471 5569/04/14 HDL cholesterol, serum 30 mg/dL > OR=40 [...] 1.80 ng/mL 0.00-4.00 Lab Report: VITAMIN D, 25-HYDROXY/85173 - Chemistry vitamin D 25-hydroxy, serum 25 ng/mL 30-100 Office Visit: Confusion, dizziness after fall - Basic LDL target level 130 mg/dL Office Visit: Confusion, dizziness after fall - Chemistry HDL cholesterol, serum, target level 40 mg/dL triglyceride, target level 150 mg/dL cholesterol, target level 200 mg/dL Encounters Code Encounter Date Provider Facility CPT-37920 Level 3 Est. Patient 15:40:49 CDT Robbie Busby MD [facility] CPT-59568 Level 4 Est. Patient 15:18:19 CDT Robbie Busby MD [facility] CPT-37555 Level 3 Est. Patient 09:00:37 CDT Rober Rodríguez [facility] CPT-72661 Level 3 Est. Patient 16:07:10 CDT Robbie Busby MD [facility] CPT-01500 Level 4 Est. Patient 11:56:16 CDT Erin Garsia [facility] CPT-78152 Level 3 Est. Patient 17:48:02 CDT Robbie Busby MD [facility] CPT-60155 Level 4 Est. 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 CPT-96331 Level 3 Est. Patient 09:16:37 CDT Robbie Busby MD [facility] CPT-35494 Level 3 Est. Patient 19:38:43 CDT Robbie Busby MD [facility] CPT-23657 Level 3 Est. Patient 11:53:38 CDT Robbie Busby MD [facility] CPT-25423 Level 4 Est. Patient 12:52:22 CDT Rober Rodríguez [facility] CPT-11559 Level 4 Est. Patient 22:55:17 CDT Robbie Bubsy MD [facility] CPT-38579 Level 3 Est. Patient 12:38:24 CDT Desmond Diaz DO [facility] CPT-33297 Level 4 Est. 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 Patient 14:50:10 CDT Robbie Busby MD [facility] CPT-44008 Level 4 Est. Patient 23:30:43 CDT Robbie Busby MD [facility] CPT-55583 Level 4 Est. Patient 10:30:43 CDT Robbie Busby MD [facility] CPT-05838 Level 3 Est. Patient 17:08:12 CDT Alex ALVAREZ [facility] CPT-33479 Level 4 Est. Patient 17:51:38 CDT Robbie Busby MD [facility] CPT-93216 Level 4 Est. Patient 14:00:21 CDT Robbie Busby MD [facility] CPT-37641 Level 4 Est. Patient 12:46:48 CDT Robbie Busby MD [facility] CPT-60725 Level 4 Est. Patient 13:34:33 CDT Robbie Busby MD [facility] CPT-55541 Level 4 Est. Patient 16:58:28 CDT Robbie Busby MD [facility] CPT-37055 Level 3 Est. Patient 19:36:[address] [facility] CPT-07981 Level 3 Est. Patient 12:58:15 CDT Robbie Busby MD [facility] Procedures Code Procedure Name Date Entry Date Standard Description CPT-J1071 Depo Testosterone 200mg 09:38:36 ACOUSTICAL TILE DRILL PRESS OPERATOR CPT-60559 Abx/Therapy Injection 09:38:36 ACOUSTICAL TILE DRILL PRESS OPERATOR CPT-J1071 Depo Testosterone 200mg 10:22:56 ACOUSTICAL TILE DRILL PRESS OPERATOR CPT-38140 Abx/Therapy Injection 10:22:56 ACOUSTICAL TILE DRILL PRESS OPERATOR CPT-J1071 Depo Testosterone 200mg 15:40:23 CDT CPT-88508 Abx/Therapy Injection 15:40:23 CDT CPT-J1071 Depo Testosterone 200mg 14:20:43 CDT CPT-65139 Abx/Therapy Injection 14:20:43 CDT CPT-J1071 Depo Testosterone 200mg 14:17:22 CDT CPT-14969 Abx/Therapy Injection 14:17:22 CDT CPT-J1071 Depo Testosterone 200mg 09:03:53 CDT CPT-80689 Abx/Therapy Injection 09:03:53 CDT CPT-G0439 [facility] Annual Wellness Exam 16:47:44 CDT CPT-J1071 Depo Testosterone 200mg 09:06:28 CDT CPT-96062 Abx/Therapy Injection 09:06:28 CDT CPT-J1071 Depo Testosterone 200mg 08:30:01 CDT CPT-70085 Abx/Therapy Injection 08:30:01 CDT CPT-J1071 Depo Testosterone 200mg 08:24:00 CDT CPT-35517 Abx/Therapy Injection 08:24:00 CDT CPT-31414 Venipuncture Draw Fee 14:39:06 CDT CPT-84831 Ribs unilateral 2V - XRAY USE ONLY 12:10:11 CDT CPT-04345 First Vx - Ix admin for Medicare patients 16:32:53 CDT CPT-54486 Boostrix Intramuscular Suspension 5-2.5-18.5 16:32:53 CDT CPT-63387 TB Skin Test 11:42:28 CDT CPT-44155 Tdap 7yrs or > 11:42:28 CDT CPT-J0696 Rocephin 1000 mg (Ceftriaxone) 17:43:43 ACOUSTICAL TILE DRILL PRESS OPERATOR CPT-J1040 Depo Medrol 80 mg (Methyl Prednisolone Acetate) 17:43: 43 ACOUSTICAL TILE DRILL PRESS OPERATOR CPT-J1100 Decadron 8mg (Dexamethasone) 17:43:42 ACOUSTICAL TILE DRILL PRESS OPERATOR CPT-42070 Abx/Therapy Injection 17:43:42 ACOUSTICAL TILE DRILL PRESS OPERATOR CPT-42063 Abx/Therapy Injection 17:43:42 ACOUSTICAL TILE DRILL PRESS OPERATOR CPT-J1040 Depo Medrol 80 mg (Methyl Prednisolone Acetate) 09:43: 34 ACOUSTICAL TILE DRILL PRESS OPERATOR CPT-J1100 Decadron 8mg (Dexamethasone) 09:43:34 ACOUSTICAL TILE DRILL PRESS OPERATOR CPT-J0696 Rocephin 1gm Inj Solr 09:43:34 ACOUSTICAL TILE DRILL PRESS OPERATOR CPT-82474 Wound Culture - LAB USE ONLY 14:00:21 CDT CPT-I/D I/D Abscess 09:16:37 CDT CPT-36406 Venipuncture Draw Fee 15:20:23 CDT CPT-55699 Microalbumin - LAB USE ONLY 16:02:19 CDT CPT-93373 CBC - LAB USE ONLY 16:02:19 CDT CPT-14177 Venipuncture Draw Fee 16:02:19 CDT CPT-G0438 Initial Annual Wellness Exam 08:10:28 CDT CPT-95665 Venipuncture Draw Fee 13:07:17 CDT CPT-G0008 Administration of Influenza Virus Vaccine 16:09:59 CDT CPT-00315 Fluzone Quadrivalent Intramuscular Suspension 0.5 ML 16: 09:59 CDT CPT-86874 Spec Collection and Handling Fee 15:05:50 CDT
--- OUTSIDE RECORDS SUMMARY | 2018-04-18 14:36 | XMS REPORT | Clinical Summary ---
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 Desmond Diaz DO Other malignant secondary hypertension Tachycardia 785.0 Active Rober Rodríguez AREA COUNSELOR Tachycardia, unspecified Insect bite, infected 919.5 Resolved Desmond Diaz DO Insect bite, nonvenomous, of other, multiple, and unspecified sites, infected Abscess, skin 682.9 Resolved Desmond Diaz DO Cellulitis and abscess of unspecified sites URI 465.9 Resolved Desmond Diaz DO Acute upper respiratory infections of unspecified site Hypertension 401.9 Active Rober Rodríguez AREA COUNSELOR Unspecified essential hypertension Sinusitis - acute 461.9 [...] Hypogonadism, low testosterone 257.2 Active Erin Mai AREA COUNSELOR Other testicular hypofunction Low back pain, chronic [...] unspecified site Sinusitis ICD-461.9 Inactive Emily Atwood SETTLEMENT AGENT 2017 Low back pain, acute ICD-724.2 Inactive Emily Atwood SETTLEMENT AGENT Low back pain, chronic ICD-724.2 Inactive Emily Atwood SETTLEMENT AGENT Bronchitis, acute ICD-466.0 Inactive Emily Atwood SETTLEMENT AGENT Onychomycosis, toenails ICD-110.1 Inactive Emily Atwood SETTLEMENT AGENT Dizziness ICD-780.4 Inactive Emily Atwood SETTLEMENT AGENT 2017 Folliculitis ICD-704.8 Inactive Emily Atwood SETTLEMENT AGENT Pharyngitis-Acute ICD-462 Inactive Emily Atwood SETTLEMENT AGENT Fatigue ICD-780.79 Inactive Emily Atwood SETTLEMENT AGENT 09/20 Hypertension, secondary, malignant ICD-405.09 Inactive Emily Atwood SETTLEMENT AGENT Insect bite, infected ICD-919.5 Inactive Emily Atwood SETTLEMENT AGENT Abscess, skin ICD-682.9 Inactive Emily Atwood SETTLEMENT AGENT URI ICD-465.9 Inactive Emily Atwood SETTLEMENT AGENT Sinusitis - acute ICD-461.9 Inactive Emily Atwood SETTLEMENT AGENT Acute confusion ICD-293.0 Inactive Emily Atwood SETTLEMENT AGENT Headache ICD-784.0 Inactive Emily Atwood SETTLEMENT AGENT 09/20 Back pain ICD-724.5 Inactive Emily Atwood SETTLEMENT AGENT 2017 Rib pain, right sided ICD-786.50 Inactive Emily Atwood SETTLEMENT AGENT Myalgias ICD-729.1 Inactive Emily Atwood SETTLEMENT AGENT 09/20 URI ICD-465.9 Inactive Emily Atwood SETTLEMENT AGENT Bronchitis-Acute ICD-466.0 Inactive Desmond Diaz DO Medication List Medication Instructions Start Date Stop Date Generic Name NDC Status Provider Patient Instruction PREDNISONE 20 MG ORAL TABLET 2 po qd x 5 days PREDNISONE 09314463365 Active Renny Bella MD Active PROMETHAZINE-CODEINE 6.25-10 MG/5ML ORAL SYRUP 5ml po q6hr PRN Cough PROMETHAZINE-CODEINE 84252394962 Active Renny Bella MD Active MONTELUKAST SODIUM 10 MG ORAL TABLET 1 tab po daily for allergies MONTELUKAST SODIUM 05156710525 Active JONATHAN Moncada Active IMDUR 60 MG ORAL TABLET EXTENDED RELEASE 24 HOUR 1 po q day ISOSORBIDE MONONITRATE 44080298307 Active Emma Hernandez Active METOPROLOL SUCCINATE ER 200 MG ORAL TABLET EXTENDED RELEASE 24 HOUR take 1 tab po qday for high blood pressure and rapid pulse METOPROLOL SUCCINATE 75596132946 Active Robbie Busby MD Active [id number] 0.3 MG/24HR TRANSDERMAL PATCH WEEKLY apply 2 patches q week for HTN CLONIDINE HCL 19989325528 No Longer Active Robbie Busby MD Active IMDUR 60 MG ORAL TABLET EXTENDED RELEASE 24 HOUR take 1 tab po qday for blood pressure ISOSORBIDE MONONITRATE 82619180393 No Longer Active Robbie Busby MD Active TEMAZEPAM 15 MG ORAL CAPSULE 1 TAB PO Q HS TEMAZEPAM 17986694411 No Longer Active Robbie Busby MD Active TOPIRAMATE 50 MG ORAL TABLET 1 po BID for migraines TOPIRAMATE 19235738323 No Longer Active Robbie Busby MD Active CYCLOBENZAPRINE HCL 10 MG ORAL TABLET 1 tablet by mouth three times daily as needed for muscle spasm/pain CYCLOBENZAPRINE HCL 73855994089 No Longer Active Robbie Busby MD Active TOPROL XL 200 MG ORAL TABLET EXTENDED RELEASE 24 HOUR Take one by mouth daily METOPROLOL SUCCINATE 26485031813 No Longer Active Robbie Busby MD Active METFORMIN HCL 500 MG ORAL TABLET 1 tablet by mouth daily for diabetes type 2 METFORMIN HCL 51983317088 Active Robbie Busby MD Active SINGULAIR 10 MG ORAL TABLET 1 po qday for allergies. MONTELUKAST SODIUM 98829610443 No Longer Active Robbie Busby MD Active PREDNISONE 20 MG ORAL TABLET two tabs by mouth today, then one tab by mouth days two and three PREDNISONE 00993004349 No Longer Active Robbie Busby MD Active AZITHROMYCIN 250 MG ORAL TABLET 2 po qd x 1 day, then 1 po qd x 4 days 09/20 AZITHROMYCIN 82098849592 No Longer Active Desmond Diaz DO Active TOPIRAMATE 50 MG ORAL TABLET take 1 tab po BID for migraines. TOPIRAMATE 80576866827 No Longer Active Desmond Diaz DO Active CYCLOBENZAPRINE HCL 10 MG ORAL TABLET 1 po TID PRN muscle spasm/pain for 10 days CYCLOBENZAPRINE HCL 73862398920 No Longer Active Desmond Diaz DO Active GUAIFENESIN ER 600 MG ORAL TABLET EXTENDED RELEASE 12 HOUR 1 tab po q am 2016 GUAIFENESIN 89498144595 No Longer Active Robbie Busby MD Active DIVALPROEX SODIUM ER 500 MG ORAL TABLET EXTENDED RELEASE 24 HOUR Once daily DIVALPROEX SODIUM 79249992310 Active Robbie Busby MD Active DEPO-TESTOSTERONE 200 MG/ML INTRAMUSCULAR SOLUTION 1 IM Injections every 2 weeks for low testosterone TESTOSTERONE CYPIONATE 99808596892 Active Zulema Blank LPN Active FLUTICASONE PROPIONATE 50 MCG/ACT NASAL SUSPENSION 2 sprays per nostril bid for 1 week, then 1 spray bid FLUTICASONE PROPIONATE 63152797383 Active Jishantel Rodríguez APRN Active HYDRALAZINE HCL 25 MG ORAL TABLET Take 1 tab BID. HYDRALAZINE HCL 97596143360 Active Jillina Franeha ARGUELLO Active VITAMIN D3 36841 UNIT ORAL TABLET 2 po weekly CHOLECALCIFEROL 73831671127 Active Robbie Busby MD Active OXYCODONE HCL ER 10 MG ORAL TABLET ER 12 HOUR ABUSE-DETERRENT 1 tab po 3 times qd. OXYCODONE HCL 23326227168 Active Robbie Busby MD Active NITROSTAT 0.4 MG SUBLINGUAL TABLET SUBLINGUAL PRN NITROGLYCERIN 42717074122 No Longer Active Robbie Busby MD Active LORATADINE 10 MG ORAL TABLET 1 tablet by mouth daily for congestion and allergies. LORATADINE 54975883031 No Longer Active Robbie Busby MD Active FLONASE 50 MCG/ACT NASAL SUSPENSION 1 spray each nostril twice daily for allergies and runny nose FLUTICASONE PROPIONATE 55227316714 No Longer Active Robbie Busby MD Active FIORICET 50-300-40 MG ORAL CAPSULE take 1 tab po qday prn migraines. [id number] 82764724028 No Longer Active Robbie Busby MD Active VITAMIN D3 34691 UNIT ORAL CAPSULE 2 CAPS PO WEEKLY CHOLECALCIFEROL 26344601433 No Longer Active Robbie Busby MD Active CYCLOBENZAPRINE HCL 10 MG ORAL TABLET 1 tablet by mouth three times daily as needed for muscle spasm/pain for 10 days CYCLOBENZAPRINE HCL 51992279064 No Longer Active Robbie Busby MD Active PREDNISONE 20 MG ORAL TABLET take 3 tabs daily for 3 days, 2 tabs daily for 3 days, 1 tab daily for 3 days, 1/2 tab daily for 4 days PREDNISONE 57008233334 No Longer Active Erin Arezane GONZALEZN Active CLONIDINE HCL 0.2 MG ORAL TABLET 1 TAB BY MOUTH EVERY 8 HOURS CLONIDINE HCL 45291099719 No Longer Active Erin Arell AREA COUNSELOR Active MECLIZINE HCL 25 MG ORAL TABLET one 4 times a day as needed for dizziness MECLIZINE HCL 38888909466 No Longer Active Erin Arell AREA COUNSELOR Active SPIRONOLACTONE 25 MG ORAL TABLET 4 tablets by mouth daily SPIRONOLACTONE 84213414280 No Longer Active Erin Arell AREA COUNSELOR Active LEVAQUIN 500 MG ORAL TABLET 1 tablet by mouth daily for 7 days LEVOFLOXACIN 97779876261 No Longer Active Erin Arell AREA COUNSELOR Active BACTRIM DS 800-160 MG ORAL TABLET 1 tab by mouth twice daily 2015 TRIMETHOPRIM-SULFAMETHOXAZOLE 08673024325 No Longer Active Robbie Busby MD Active HYDRALAZINE HCL 50 MG ORAL TABLET TWO BY MOUTH THREE TIMES DAILY HYDRALAZINE HCL 40497821343 No Longer Active Rober Rodríguez APRN Active HYDROCODONE-ACETAMINOPHEN 5-325 MG ORAL TABLET 1 tab by mouth BID prn back pain HYDROCODONE-ACETAMINOPHEN 91979496991 No Longer Active Rober Rodríguez APRN Active HYDROCHLOROTHIAZIDE TABLET Take one by mouth daily HYDROCHLOROTHIAZIDE TABS 28189699034 No Longer Active Jillina Frazell AREA COUNSELOR Active LAMISIL 125 MG ORAL PACKET 1 TAB PO DAILY TERBINAFINE HCL 74020830041 No Longer Active Jillina Frazell AREA COUNSELOR Active TRILEPTAL 150 MG ORAL TABLET 1 TAB PO Q HS OXCARBAZEPINE 88062345377 No Longer Active Jillina Frazell AREA COUNSELOR Active BETADINE 10 % EXTERNAL SOLUTION wash with solution to treat follicultis 07/29 POVIDONE-IODINE 95351808170 No Longer Active Jillina Frazell AREA COUNSELOR Active NYSTATIN 449677 UNIT/ML MOUTH/THROAT SUSPENSION 5mL po QID x 10 days NYSTATIN 04288658830 No Longer Active Erin Mai APRN Active PREDNISONE 20 MG ORAL TABLET 1 tablet twice daily for 2 days, then 1 tablet once daily for 2 days PREDNISONE 73904682023 No Longer Active Robbie Busby MD Active CEFDINIR 300 MG ORAL CAPSULE Take 1 cap po bid x 10 days CEFDINIR 03899111439 No Longer Active Robbie Busby MD Active AMLODIPINE BESYLATE 10 MG ORAL TABLET 1 tablet by mouth daily AMLODIPINE BESYLATE 51987900421 Active Robibe Busby MD Active CARVEDILOL 25 MG ORAL TABLET 1 & 1/2 TAB po BID CARVEDILOL 34799610700 Active Robbie Busby MD Active NEXIUM 40 MG ORAL CAPSULE DELAYED RELEASE 1 cap by mouth daily ESOMEPRAZOLE MAGNESIUM 95973128914 Active Robbie Busby MD Active PROTONIX 40 MG INTRAVENOUS SOLUTION RECONSTITUTED 1 po qday for acid reflux PANTOPRAZOLE SODIUM 60331234020 No Longer Active Gali Raida Active KEFLEX 500 MG ORAL CAPSULE 1 po TID x 10 days CEPHALEXIN 35839351216 No Longer Active Robbie Busby MD Active ALPRAZOLAM 2 MG ORAL TABLET 1 TAB PO BID ALPRAZOLAM 68666180292 Active Robbie Busby MD Active FENOFIBRATE 145 MG ORAL TABLET Take one by mouth daily FENOFIBRATE 48379887089 No Longer Active Robbie Busby MD Active SPIRONOLACTONE 50 MG ORAL TABLET 1 tablet by mouth twice a day SPIRONOLACTONE 44342830952 No Longer Active Robbie Busby MD Active HYDRALAZINE HCL 25 MG ORAL TABLET 1 tablet by mouth tid for hypertension 2013 HYDRALAZINE HCL 23418703087 No Longer Active Robbie Busby MD Active VIIBRYD 40 MG ORAL TABLET take 1 tab po qday for depression. 2014 VILAZODONE HCL 36153826664 No Longer Active Robbie Busby MD Active TERBINAFINE HCL 250 MG ORAL TABLET 1 tab po qday for foot infection TERBINAFINE HCL 36172197725 No Longer Active Robbie Busby MD Active GABAPENTIN 300 MG ORAL CAPSULE 1 po q hs for nerve pain GABAPENTIN 55379256566 Active Robbie Busby MD Active CHERATUSSIN AC 100-10 MG/5ML ORAL SOLUTION 7.5 mL PO q 4-6 hrs PRN cough 2014 GUAIFENESIN-CODEINE 09799930763 No Longer Active Robbie Busby MD Active AZITHROMYCIN 250 MG ORAL TABLET 2 tablets PO today---then, 1 tablet PO daily x 4 more days (and 1 optional refill) AZITHROMYCIN 58422048847 No Longer Active Robbie Busby MD Active NORVASC 10 MG ORAL TABLET 1 tablet by mouth daily AMLODIPINE BESYLATE 57748120387 No Longer Active Alex ALVAREZ Active ISOSORBIDE DINITRATE 30 MG ORAL TABLET Take one by mouth daily ISOSORBIDE DINITRATE 31486138789 No Longer Active Robbie Busby MD Active VIIBRYD 40 MG ORAL TABLET 1 TA B PO DAILY VILAZODONE HCL 21435703508 Active Robbie Busby MD Active ZITHROMAX 250 MG ORAL TABLET 2 po today, then 1 po q days 2-5 AZITHROMYCIN 78067103271 No Longer Active Robbie Busby MD Active DOXAZOSIN MESYLATE 4 MG ORAL TABLET Take one by mouth daily DOXAZOSIN MESYLATE 77666551538 Active Robbie Busby MD Active VENLAFAXINE HCL ER 150 MG ORAL TABLET EXTENDED RELEASE 24 HOUR Take one by mouth daily VENLAFAXINE HCL 54430699098 Active Robbie Busby MD Active LIPITOR 40 MG ORAL TABLET Take one by mouth daily ATORVASTATIN CALCIUM 80131835917 Active Robbie Busby MD Active ISOSORBIDE DINITRATE 30 MG ORAL TABLET Take one by mouth daily ISOSORBIDE DINITRATE 30 MG ORAL TABLET 385604 ISOSORBIDE DINITRATE Inactive NORVASC 10 MG ORAL TABLET 1 tablet by mouth daily NORVASC 10 MG ORAL TABLET 563610 AMLODIPINE BESYLATE Inactive AZITHROMYCIN 250 MG ORAL TABLET 2 tablets PO today---then, 1 tablet PO daily x 4 more days (and 1 optional refill) AZITHROMYCIN 250 MG ORAL TABLET 729007 AZITHROMYCIN Inactive CHERATUSSIN AC 100-10 MG/5ML ORAL SOLUTION 7.5 mL PO q 4-6 hrs PRN cough 2014 CHERATUSSIN AC 100-10 MG/5ML ORAL SOLUTION 665146 GUAIFENESIN-CODEINE Inactive VIIBRYD 40 MG ORAL TABLET take 1 tab po qday for depression. 2014 VIIBRYD 40 MG ORAL TABLET VILAZODONE HCL Inactive HYDRALAZINE HCL 25 MG ORAL TABLET 1 tablet by mouth tid for hypertension 2013 HYDRALAZINE HCL 25 MG ORAL TABLET 295722 HYDRALAZINE HCL Inactive SPIRONOLACTONE 50 MG ORAL TABLET 1 tablet by mouth twice a day SPIRONOLACTONE 50 MG ORAL TABLET 682221 SPIRONOLACTONE Inactive FENOFIBRATE 145 MG ORAL TABLET Take one by mouth daily FENOFIBRATE 145 MG ORAL TABLET 641255 FENOFIBRATE Inactive PROTONIX 40 MG INTRAVENOUS SOLUTION RECONSTITUTED 1 po qday for acid reflux PROTONIX 40 MG INTRAVENOUS SOLUTION RECONSTITUTED 873884 PANTOPRAZOLE SODIUM Inactive CEFDINIR 300 MG ORAL CAPSULE Take 1 cap po bid x 10 days CEFDINIR 300 MG ORAL CAPSULE 765474 CEFDINIR Inactive PREDNISONE 20 MG ORAL TABLET 1 tablet twice daily for 2 days, then 1 tablet once daily for 2 days PREDNISONE 20 MG ORAL TABLET 948593 PREDNISONE Inactive NYSTATIN 365036 UNIT/ML MOUTH/THROAT SUSPENSION 5mL po QID x 10 days NYSTATIN 018376 UNIT/ML MOUTH/THROAT SUSPENSION 356441 NYSTATIN Inactive BETADINE 10 % EXTERNAL SOLUTION wash with solution to treat follicultis 07/29 BETADINE 10 % EXTERNAL SOLUTION 4679152 POVIDONE-IODINE Inactive TRILEPTAL 150 MG ORAL TABLET 1 TAB PO Q HS TRILEPTAL 150 MG ORAL TABLET 834750 OXCARBAZEPINE Inactive LAMISIL 125 MG ORAL PACKET 1 TAB PO DAILY LAMISIL 125 MG ORAL PACKET TERBINAFINE HCL Inactive HYDROCHLOROTHIAZIDE TABLET Take one by mouth daily HYDROCHLOROTHIAZIDE TABLET HYDROCHLOROTHIAZIDE TABS Inactive HYDROCODONE-ACETAMINOPHEN 5-325 MG ORAL TABLET 1 tab by mouth BID prn back pain HYDROCODONE-ACETAMINOPHEN 5-325 MG ORAL TABLET 443892 HYDROCODONE-ACETAMINOPHEN Inactive HYDRALAZINE HCL 50 MG ORAL TABLET TWO BY MOUTH THREE TIMES DAILY HYDRALAZINE HCL 50 MG ORAL TABLET 498332 HYDRALAZINE HCL Inactive LEVAQUIN 500 MG ORAL TABLET 1 tablet by mouth daily for 7 days LEVAQUIN 500 MG ORAL TABLET 122801 LEVOFLOXACIN Inactive SPIRONOLACTONE 25 MG ORAL TABLET 4 tablets by mouth daily SPIRONOLACTONE 25 MG ORAL TABLET 850905 SPIRONOLACTONE Inactive MECLIZINE HCL 25 MG ORAL TABLET one 4 times a day as needed for dizziness MECLIZINE HCL 25 MG ORAL TABLET 707166 MECLIZINE HCL Inactive CLONIDINE HCL 0.2 MG ORAL TABLET 1 TAB BY MOUTH EVERY 8 HOURS CLONIDINE HCL 0.2 MG ORAL TABLET 403158 CLONIDINE HCL Inactive CYCLOBENZAPRINE HCL 10 MG ORAL TABLET 1 tablet by mouth three times daily as needed for muscle spasm/pain for 10 days CYCLOBENZAPRINE HCL 10 MG ORAL TABLET 145924 CYCLOBENZAPRINE HCL Inactive VITAMIN D3 01295 UNIT ORAL CAPSULE 2 CAPS PO WEEKLY VITAMIN D3 75191 UNIT ORAL CAPSULE CHOLECALCIFEROL Inactive FIORICET 50-300-40 MG ORAL CAPSULE take 1 tab po qday prn migraines. FIORICET 50-300-40 MG ORAL CAPSULE 764880 BUTALBITAL-APAP- CAFFEINE Inactive FLONASE 50 MCG/ACT NASAL SUSPENSION 1 spray each nostril twice daily for allergies and runny nose FLONASE 50 MCG/ACT NASAL SUSPENSION 2203355 FLUTICASONE PROPIONATE Inactive LORATADINE 10 MG ORAL TABLET 1 tablet by mouth daily for congestion and allergies. LORATADINE 10 MG ORAL TABLET 974205 LORATADINE Inactive NITROSTAT 0.4 MG SUBLINGUAL TABLET SUBLINGUAL PRN NITROSTAT 0.4 MG SUBLINGUAL TABLET SUBLINGUAL 436534 NITROGLYCERIN Inactive GUAIFENESIN ER 600 MG ORAL TABLET EXTENDED RELEASE 12 HOUR 1 tab po q am 2016 GUAIFENESIN ER 600 MG ORAL TABLET EXTENDED RELEASE 12 HOUR GUAIFENESIN Inactive CYCLOBENZAPRINE HCL 10 MG ORAL TABLET 1 po TID PRN muscle spasm/pain for 10 days CYCLOBENZAPRINE HCL 10 MG ORAL TABLET 966208 CYCLOBENZAPRINE HCL Inactive TOPIRAMATE 50 MG ORAL TABLET take 1 tab po BID for migraines. TOPIRAMATE 50 MG ORAL TABLET 248288 TOPIRAMATE Inactive PREDNISONE 20 MG ORAL TABLET two tabs by mouth today, then one tab by mouth days two and three PREDNISONE 20 MG ORAL TABLET 497291 PREDNISONE Inactive TOPROL XL 200 MG ORAL TABLET EXTENDED RELEASE 24 HOUR Take one by mouth daily TOPROL XL 200 MG ORAL TABLET EXTENDED RELEASE 24 HOUR METOPROLOL SUCCINATE Inactive CYCLOBENZAPRINE HCL 10 MG ORAL TABLET 1 tablet by mouth three times daily as needed for muscle spasm/pain CYCLOBENZAPRINE HCL 10 MG ORAL TABLET 244656 CYCLOBENZAPRINE HCL Inactive TOPIRAMATE 50 MG ORAL TABLET 1 po BID for migraines TOPIRAMATE 50 MG ORAL TABLET 131171 TOPIRAMATE Inactive TEMAZEPAM 15 MG ORAL CAPSULE 1 TAB PO Q HS TEMAZEPAM 15 MG ORAL CAPSULE 986345 TEMAZEPAM Inactive IMDUR 60 MG ORAL TABLET EXTENDED RELEASE 24 HOUR take 1 tab po qday for blood pressure IMDUR 60 MG ORAL TABLET EXTENDED RELEASE 24 HOUR ISOSORBIDE MONONITRATE Inactive [id number] 0.3 MG/24HR TRANSDERMAL PATCH WEEKLY apply 2 patches q week for HTN [id number]-QIN-0 0.3 MG/24HR TRANSDERMAL PATCH WEEKLY 481078 CLONIDINE HCL Inactive ZITHROMAX 250 MG ORAL TABLET 2 po today, then 1 po q days 2-5 ZITHROMAX 250 MG ORAL TABLET 462388 AZITHROMYCIN Inactive TERBINAFINE HCL 250 MG ORAL TABLET 1 tab po qday for foot infection TERBINAFINE HCL 250 MG ORAL TABLET 347846 TERBINAFINE HCL Inactive KEFLEX 500 MG ORAL CAPSULE 1 po TID x 10 days KEFLEX 500 MG ORAL CAPSULE 197797 CEPHALEXIN Inactive BACTRIM DS 800-160 MG ORAL TABLET 1 tab by mouth twice daily 2015 BACTRIM DS 800-160 MG ORAL TABLET 245238 TRIMETHOPRIM- SULFAMETHOXAZOLE Inactive PREDNISONE 20 MG ORAL TABLET take 3 tabs daily for 3 days, 2 tabs daily for 3 days, 1 tab daily for 3 days, 1/2 tab daily for 4 days PREDNISONE 20 MG ORAL TABLET 675897 PREDNISONE Inactive AZITHROMYCIN 250 MG ORAL TABLET 2 po qd x 1 day, then 1 po qd x 4 days 09/20 AZITHROMYCIN 250 MG ORAL TABLET 482243 AZITHROMYCIN Inactive SINGULAIR 10 MG ORAL TABLET 1 po qday for allergies. SINGULAIR 10 MG ORAL TABLET 193117 MONTELUKAST SODIUM Inactive Advance Directives Directive Description [...] AUTO - Chemistry sodium, serum 142 mmol/L 442-053 4517/07/17 carbon dioxide, venous blood 28.2 mmol/L 21.0-32.0 [...] Panel - Chemistry sodium, serum 141 mmol/L 939-356 6782/02/13 carbon dioxide, venous blood 23.9 mmol/L 21.0-32.0 [...] 6.9 % 4.3-6.0 sodium, serum 139 mmol/L 141-420 4035/01/04 potassium, serum 3.9 mmol/L 3.5-5.2 chloride, serum [...] 1.80 ng/mL 0.00-4.00 Lab Report: VITAMIN D, 25-HYDROXY/14224 - Chemistry vitamin D 25-hydroxy, serum 25 ng/mL 30-100 Encounters Code Encounter Date Provider Facility CPT-83775 Level 3 Est. Patient 13:59:07 CDT Renny Bella MD [facility] CPT-78232 Level 3 Est. Patient 16:04:17 CDT Robbie Busby MD [facility] CPT-88525 Level 4 Est. Patient 09:50:01 CENTRAL SUPPLY TECHNICIAN SUPERVISOR Robbie Busby MD [facility]-94470 Level 4 Est. Patient 09:42:08 CENTRAL SUPPLY TECHNICIAN SUPERVISOR Robbie Busby MD [facility] CPT-68102 Level 4 Est. Patient 13:07:39 CENTRAL SUPPLY TECHNICIAN SUPERVISOR Robbie Busby MD [facility] CPT-51910 Level 4 Est. Patient 15:23:44 CENTRAL SUPPLY TECHNICIAN SUPERVISOR Desmond Diaz DO [facility] CPT-55616 Level 3 Est. Patient 15:40:49 CDT Robbie Busby MD [facility] CPT-74207 Level 4 Est. Patient 15:18:19 CDT Robbie Busby MD [facility] CPT-94708 Level 3 Est. Patient 09:00:37 CDT Rober Rodríguez [facility] CPT-58042 Level 3 Est. Patient 16:07:10 CDT Robbie Busby MD [facility] CPT-46396 Level 4 Est. Patient 11:56:16 CDT Erin Mai [facility] CPT-70152 Level 3 Est. Patient 17:48:02 CDT Robbie Busby MD [facility] CPT-39579 Level 4 Est. Patient 12:00:49 CENTRAL SUPPLY TECHNICIAN SUPERVISOR Rober Rodríguez [facility] CPT-33289 Level 3 Est. Patient 09:16:37 CDT Robbie Busby MD [facility] CPT-29894 Level 3 Est. Patient 19:38:43 CDT Robbie Busby MD [facility] CPT-36158 Level 3 Est. Patient 11:53:38 CDT Robbie Busby MD [facility]-63304 Level 4 Est. Patient 12:52:22 CDT Rober Rodríguez APRN [facility] CPT-21268 Level 4 Est. Patient 22:55:17 CDT Robbie Busby MD [facility]-11059 Level 3 Est. Patient 12:38:24 CDT Desmond Diaz DO [facility] CPT-66795 Level 4 Est. Patient 11:25:03 CENTRAL SUPPLY TECHNICIAN SUPERVISOR Robbie Busby MD [facility]-38538 Level 4 Est. Patient 14:50:10 CDT Robbie Busby MD [facility] CPT-37376 Level 4 Est. Patient 23:30:43 CDT Robbie Busby MD [facility] CPT-27436 Level 4 Est. Patient 10:30:43 CDT Robbie Busby MD [facility] CPT-98067 Level 3 Est. Patient 17:08:12 CDT Alex ALVAREZ [facility] CPT-72787 Level 4 Est. Patient 17:51:38 CDT Robbie Busby MD [facility] CPT-23764 Level 4 Est. Patient 14:00:21 CDT Robbie Busby MD [facility] CPT-11301 Level 4 Est. Patient 12:46:48 CDT Robbie Busby MD [facility]-27235 Level 4 Est. Patient 13:34:33 CDT Robbie Busby MD [facility] CPT-57189 Level 4 Est. Patient 16:58:28 CDT Robbie Busby MD [facility] CPT-98189 Level 3 Est. Patient 19:36:53 CDT Alex ALVAREZ [facility] CPT-58601 Level 3 Est. Patient 12:58:15 CDT Robbie Busby MD [facility] Procedures Code Procedure Name Date Entry Date Standard Description CPT-J1071 Depo Testosterone 200mg 09:01:06 CDT CPT-71137 Abx/Therapy Injection 09:01:06 CDT CPT-J1100 Decadron 8mg (Dexamethasone) 16:04:17 CDT CPT-J1040 Depo Medrol 80 mg (Methyl Prednisolone Acetate) 16:04: 17 CDT CPT-J1071 Depo Testosterone 200mg 08:56:46 CDT CPT-90930 Abx/Therapy Injection 08:56:45 CDT CPT-J1071 Depo Testosterone 200mg 08:26:27 CDT CPT-60516 Abx/Therapy Injection 08:26:27 CDT CPT-J1071 Depo Testosterone 200mg 10:27:10 CDT CPT-25525 Abx/Therapy Injection 10:27:10 CDT CPT-J1071 Depo Testosterone 200mg 16:10:29 CENTRAL SUPPLY TECHNICIAN SUPERVISOR CPT-41251 Abx/Therapy Injection 16:10:29 CENTRAL SUPPLY TECHNICIAN SUPERVISOR CPT-J1071 Depo Testosterone 200mg 16:13:47 CENTRAL SUPPLY TECHNICIAN SUPERVISOR CPT-86507 Abx/Therapy Injection 16:13:46 CENTRAL SUPPLY TECHNICIAN SUPERVISOR CPT-J1071 Depo Testosterone 200mg 15:33:58 CENTRAL SUPPLY TECHNICIAN SUPERVISOR CPT-36310 Abx/Therapy Injection 15:33:58 CENTRAL SUPPLY TECHNICIAN SUPERVISOR CPT-J1071 Depo Testosterone 200mg 09:38:36 CENTRAL SUPPLY TECHNICIAN SUPERVISOR CPT-76616 Abx/Therapy Injection 09:38:36 CENTRAL SUPPLY TECHNICIAN SUPERVISOR CPT-J1071 Depo Testosterone 200mg 10:22:56 CENTRAL SUPPLY TECHNICIAN SUPERVISOR CPT-78169 Abx/Therapy Injection 10:22:56 CENTRAL SUPPLY TECHNICIAN SUPERVISOR CPT-J1071 Depo Testosterone 200mg 15:40:23 CDT CPT-25220 Abx/Therapy Injection 15:40:23 CDT CPT-J1071 Depo Testosterone 200mg 14:20:43 CDT CPT-60115 Abx/Therapy Injection 14:20:43 CDT CPT-J1071 Depo Testosterone 200mg 14:17:22 CDT CPT-39730 Abx/Therapy Injection 14:17:22 CDT CPT-J1071 Depo Testosterone 200mg 09:03:53 CDT CPT-89819 Abx/Therapy Injection 09:03:53 CDT CPT-G0439 [facility] Annual Wellness Exam 16:47:44 CDT CPT-J1071 Depo Testosterone 200mg 09:06:28 CDT CPT-40381 Abx/Therapy Injection 09:06:28 CDT CPT-J1071 Depo Testosterone 200mg 08:30:01 CDT CPT-85633 Abx/Therapy Injection 08:30:01 CDT CPT-J1071 Depo Testosterone 200mg 08:24:00 CDT CPT-25763 Abx/Therapy Injection 08:24:00 CDT CPT-95894 Venipuncture Draw Fee 14:39:06 CDT CPT-85384 Ribs unilateral 2V - XRAY USE ONLY 12:10:11 CDT CPT-31170 First Vx - Ix admin for Medicare patients 16:32:53 CDT CPT-53875 Boostrix Intramuscular Suspension 5-2.5-18.5 16:32:53 CDT CPT-96745 TB Skin Test 11:42:28 CDT CPT-81220 Tdap 7yrs or > 11:42:28 CDT CPT-J0696 Rocephin 1000 mg (Ceftriaxone) 17:43:43 CENTRAL SUPPLY TECHNICIAN SUPERVISOR CPT-J1040 Depo Medrol 80 mg (Methyl Prednisolone Acetate) 17:43: 43 CENTRAL SUPPLY TECHNICIAN SUPERVISOR CPT-J1100 Decadron 8mg (Dexamethasone) 17:43:42 CENTRAL SUPPLY TECHNICIAN SUPERVISOR CPT-71024 Abx/Therapy Injection 17:43:42 CENTRAL SUPPLY TECHNICIAN SUPERVISOR CPT-24094 Abx/Therapy Injection 17:43:42 CENTRAL SUPPLY TECHNICIAN SUPERVISOR CPT-J1040 Depo Medrol 80 mg (Methyl Prednisolone Acetate) 09:43: 34 CENTRAL SUPPLY TECHNICIAN SUPERVISOR CPT-J1100 Decadron 8mg (Dexamethasone) 09:43:34 CENTRAL SUPPLY TECHNICIAN SUPERVISOR CPT-J0696 Rocephin 1gm Inj Solr 09:43:34 CENTRAL SUPPLY TECHNICIAN SUPERVISOR CPT-82497 Wound Culture - LAB USE ONLY 14:00:21 CDT CPT-I/D I/D Abscess 09:16:37 CDT CPT-37569 Venipuncture Draw Fee 15:20:23 CDT CPT-11032 Microalbumin - LAB USE ONLY 16:02:19 CDT CPT-06995 CBC - LAB USE ONLY 16:02:19 CDT CPT-72094 Venipuncture Draw Fee 16:02:19 CDT CPT-G0438 Initial Annual Wellness Exam 08:10:28 CDT CPT-55656 Venipuncture Draw Fee 13:07:17 CDT CPT-G0008 Administration of Influenza Virus Vaccine 16:09:59 CDT CPT-99278 Fluzone Quadrivalent Intramuscular Suspension 0.5 ML 16: 09:59 CDT CPT-54573 Spec Collection and Handling Fee 15:05:50 CDT
--- OUTSIDE RECORDS SUMMARY | 2018-04-18 14:39 | XMS REPORT | Clinical Summary ---
Author Author Admin, AKUA Organization 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 CLERK Other malignant secondary hypertension Tachycardia 785.0 Active [...] muscle spasm/pain for 10 days CYCLOBENZAPRINE HCL 95902296025 Active Erin Garsia APRN Active PREDNISONE 20 MG TAB take 3 tabs daily for 3 days, 2 tabs daily for 3 days, 1 tab daily for 3 days, 1/2 tab daily for 4 days PREDNISONE 37157544810 Active Erin Garsia APRN Active CLONIDINE HCL 0.2 MG ORAL TABS 1 TAB BY MOUTH EVERY 8 HOURS 12/29 CLONIDINE HCL 35970420776 No Longer Active Erin Garsia APRN Active MECLIZINE HCL 25 MG TAB one 4 times a day as needed for dizziness MECLIZINE HCL 92423961175 No Longer Active Erin Garsia APRN Active SPIRONOLACTONE 25 MG TAB 4 tablets by mouth daily SPIRONOLACTONE 93918219202 No Longer Active Erin Garsia APRN Active LEVAQUIN 500 MG TAB 1 tablet by mouth daily for 7 days LEVOFLOXACIN 39078149556 No Longer Active Erin Garsia APRN Active BACTRIM DS 800-160 MG TAB 1 tab by mouth twice daily TRIMETHOPRIM-SULFAMETHOXAZOLE 44922021883 No Longer Active Robbie Busby MD Active HYDRALAZINE HCL 50 MG ORAL TABS TWO BY MOUTH THREE TIMES DAILY HYDRALAZINE HCL 45300089687 No Longer Active Jillina Frazell DESPATCHING AND RECEIVING CLERK Active HYDROCODONE-ACETAMINOPHEN 5-325 MG TABS 1 tab by mouth BID prn back pain 2013 HYDROCODONE-ACETAMINOPHEN 19206369755 No Longer Active Jillina Frazell DESPATCHING AND RECEIVING CLERK Active HYDROCHLOROTHIAZIDE TABS Take one by mouth daily HYDROCHLOROTHIAZIDE TABS 18920697906 No Longer Active Jillina Frazell DESPATCHING AND RECEIVING CLERK Active LAMISIL 125 MG ORAL PACK 1 TAB PO DAILY TERBINAFINE HCL 65768524493 No Longer Active Jillina Frazell DESPATCHING AND RECEIVING CLERK Active TRILEPTAL 150 MG ORAL TABS 1 TAB PO Q HS OXCARBAZEPINE 26883029141 No Longer Active Jillina Frazell DESPATCHING AND RECEIVING CLERK Active BETADINE 10 % EXT SOLN wash with solution to treat follicultis POVIDONE-IODINE 71559290362 No Longer Active Jillina Frakierstenl DESPATCHING AND RECEIVING CLERK Active NYSTATIN 777681 UNIT/ML M/T SUSP 5mL po QID x 10 days NYSTATIN 89330525412 No Longer Active Erin Garsia APRN Active PREDNISONE 20 MG TAB 1 tablet twice daily for 2 days, then 1 tablet once daily for 2 days PREDNISONE 42522409890 No Longer Active Robbie Busby MD Active CEFDINIR 300 MG ORAL CAPS Take 1 cap po bid x 10 days CEFDINIR 11294315601 No Longer Active Robbie Busby MD Active AMLODIPINE BESYLATE 10 MG TABS 1 tablet by mouth daily AMLODIPINE BESYLATE 36592500142 Active Robbie Busby MD Active CARVEDILOL 25 MG TABS 1 & 1/2 TAB po BID CARVEDILOL 45488346926 Active Erin Garsia APRN Active VITAMIN D3 78329 UNIT CAPS 2 CAPS PO WEEKLY CHOLECALCIFEROL 36546562873 Active Erin Garsia APRN Active NEXIUM 40 MG CPDR 1 cap by mouth daily ESOMEPRAZOLE MAGNESIUM 54452277599 Active Robbie Busby MD Active PROTONIX 40 MG SOLR 1 po qday for acid reflux PANTOPRAZOLE SODIUM 26774212034 No Longer Active Gali Negro Active KEFLEX 500 MG CAP 1 po TID x 10 days CEPHALEXIN 31023414752 No Longer Active Robbie Busby MD Active FIORICET 50-300-40 MG ORAL CAPS take 1 tab po qday prn migraines. [id number]-XOSJEELR 31168310178 Active Robbie Busby MD Active TOPIRAMATE 50 MG ORAL TABS take 1 tab po BID for migraines. TOPIRAMATE 14746475202 Active Robbie Busby MD Active TEMAZEPAM 15 MG ORAL CAPS 1 TAB PO Q HS TEMAZEPAM 05998366683 Active Robbie Busby MD Active ALPRAZOLAM 2 MG ORAL TABS 1 TAB PO BID ALPRAZOLAM 54650307844 Active Robbie Busby MD Active FENOFIBRATE 145 MG TABS Take one by mouth daily FENOFIBRATE 48112773618 No Longer Active Robbie Busby MD Active SPIRONOLACTONE 50 MG TABS 1 tablet by mouth twice a day SPIRONOLACTONE 09370502315 No Longer Active Robbie Busby MD Active HYDRALAZINE HCL 25 MG TABS 1 tablet by mouth tid for hypertension HYDRALAZINE HCL 06515647431 No Longer Active Robbie Busby MD Active VIIBRYD 40 MG TABS take 1 tab po qday for depression. VILAZODONE HCL 94994111774 No Longer Active Robbie Busby MD Active TERBINAFINE HCL 250 MG TABS 1 tab po qday for foot infection 2014 TERBINAFINE HCL 66233850451 No Longer Active Robbie Busby MD Active GABAPENTIN 300 MG CAPS 1 po q hs for nerve pain GABAPENTIN 75270395082 Active Robbie Busby MD Active FLONASE 50 MCG/ACT SUSP 1 spray each nostril twice daily for allergies and runny nose FLUTICASONE PROPIONATE 87897830222 Active Robbie Busby MD Active CHERATUSSIN AC 100-10 MG/5ML ORAL SOLN 7.5 mL PO q 4-6 hrs PRN cough GUAIFENESIN-CODEINE 11280325438 No Longer Active Robbie Busby MD Active AZITHROMYCIN 250 MG ORAL TABS 2 tablets PO today---then, 1 tablet PO daily x 4 more days (and 1 optional refill) AZITHROMYCIN 26766513151 No Longer Active Robbie Busby MD Active NORVASC 10 MG TAB 1 tablet by mouth daily AMLODIPINE BESYLATE 59620901906 No Longer Active Alex ALVAREZ Active IMDUR 60 MG TAB CR take 1 tab po qday for blood pressure ISOSORBIDE MONONITRATE Active Robbie Busby MD Active ISOSORBIDE DINITRATE 30 MG TABS Take one by mouth daily ISOSORBIDE DINITRATE 03218246403 No Longer Active Robbie Busby MD Active VIIBRYD 40 MG TABS 1 TA B PO DAILY VILAZODONE HCL 02504699601 Active Robbie Busby MD Active LORATADINE 10 MG TABS 1 tablet by mouth daily for congestion and allergies. LORATADINE 81132150313 Active Robbie Busby MD Active ZITHROMAX 250 MG TAB 2 po today, then 1 po q days 2-5 AZITHROMYCIN 21548438159 No Longer Active Robbie Busby MD Active [id number] 0.3 MG/24HR PTWK apply 2 patches q week for HTN CLONIDINE HCL 06953532633 Active Robbie Busby MD Active NITROSTAT 0.4 MG SUBL PRN NITROGLYCERIN 87276538013 Active Robibe Busby MD Active DOXAZOSIN MESYLATE 4 MG TABS Take one by mouth daily DOXAZOSIN MESYLATE 36018441720 Active Erin Garsia APRN Active TOPROL XL 200 MG [id number] Take one by mouth daily METOPROLOL SUCCINATE 36283546373 Active Robbie Busby MD Active VENLAFAXINE HCL ER 150 MG [id number] Take one by mouth daily VENLAFAXINE HCL 69532129970 Active Rbobie Busby MD Active LIPITOR 40 MG TABS Take one by mouth daily ATORVASTATIN CALCIUM 29327575759 Active Robbie Busby MD Active ISOSORBIDE DINITRATE 30 MG TABS Take one by mouth daily ISOSORBIDE DINITRATE 30 MG TABS 940037 ISOSORBIDE DINITRATE Inactive NORVASC 10 MG TAB 1 tablet by mouth daily NORVASC 10 MG TAB 231495 AMLODIPINE BESYLATE Inactive AZITHROMYCIN 250 MG ORAL TABS 2 tablets PO today---then, 1 tablet PO daily x 4 more days (and 1 optional refill) AZITHROMYCIN 250 MG ORAL TABS 2978358 AZITHROMYCIN Inactive CHERATUSSIN AC 100-10 MG/5ML ORAL SOLN 7.5 mL PO q 4-6 hrs PRN cough CHERATUSSIN AC 100-10 MG/5ML ORAL SOLN 103518 GUAIFENESIN- CODEINE Inactive VIIBRYD 40 MG TABS take 1 tab po qday for depression. VIIBRYD 40 MG TABS VILAZODONE HCL Inactive HYDRALAZINE HCL 25 MG TABS 1 tablet by mouth tid for hypertension HYDRALAZINE HCL 25 MG TABS 543118 HYDRALAZINE HCL Inactive SPIRONOLACTONE 50 MG TABS 1 tablet by mouth twice a day SPIRONOLACTONE 50 MG TABS 665596 SPIRONOLACTONE Inactive FENOFIBRATE 145 MG TABS Take one by mouth daily FENOFIBRATE 145 MG TABS 059411 FENOFIBRATE Inactive PROTONIX 40 MG SOLR 1 po qday for acid reflux PROTONIX 40 MG SOLR 711885 PANTOPRAZOLE SODIUM Inactive CEFDINIR 300 MG ORAL CAPS Take 1 cap po bid x 10 days CEFDINIR 300 MG ORAL CAPS 512290 CEFDINIR Inactive PREDNISONE 20 MG TAB 1 tablet twice daily for 2 days, then 1 tablet once daily for 2 days PREDNISONE 20 MG TAB 056770 PREDNISONE Inactive NYSTATIN 714457 UNIT/ML M/T SUSP 5mL po QID x 10 days NYSTATIN 833417 UNIT/ML M/T SUSP 556574 NYSTATIN Inactive BETADINE 10 % EXT SOLN wash with solution to treat follicultis BETADINE 10 % EXT SOLN 7257628 POVIDONE-IODINE Inactive TRILEPTAL 150 MG ORAL TABS 1 TAB PO Q HS TRILEPTAL 150 MG ORAL TABS 367948 OXCARBAZEPINE Inactive LAMISIL 125 MG ORAL PACK 1 TAB PO DAILY LAMISIL 125 MG ORAL PACK TERBINAFINE HCL Inactive HYDROCHLOROTHIAZIDE TABS Take one by mouth daily HYDROCHLOROTHIAZIDE TABS HYDROCHLOROTHIAZIDE TABS Inactive HYDROCODONE-ACETAMINOPHEN 5-325 MG TABS 1 tab by mouth BID prn back pain 2013 HYDROCODONE-ACETAMINOPHEN 5-325 MG TABS 989339 HYDROCODONE -ACETAMINOPHEN Inactive HYDRALAZINE HCL 50 MG ORAL TABS TWO BY MOUTH THREE TIMES DAILY HYDRALAZINE HCL 50 MG ORAL TABS 322025 HYDRALAZINE HCL Inactive LEVAQUIN 500 MG TAB 1 tablet by mouth daily for 7 days LEVAQUIN 500 MG TAB 341472 LEVOFLOXACIN Inactive SPIRONOLACTONE 25 MG TAB 4 tablets by mouth daily SPIRONOLACTONE 25 MG TAB 741523 SPIRONOLACTONE Inactive MECLIZINE HCL 25 MG TAB one 4 times a day as needed for dizziness MECLIZINE HCL 25 MG TAB 725541 MECLIZINE HCL Inactive CLONIDINE HCL 0.2 MG ORAL TABS 1 TAB BY MOUTH EVERY 8 HOURS 12/29 CLONIDINE HCL 0.2 MG ORAL TABS 652887 CLONIDINE HCL Inactive ZITHROMAX 250 MG TAB 2 po today, then 1 po q days 2-5 ZITHROMAX 250 MG TAB 0373268 AZITHROMYCIN Inactive TERBINAFINE HCL 250 MG TABS 1 tab po qday for foot infection 2014 TERBINAFINE HCL 250 MG TABS 081194 TERBINAFINE HCL Inactive KEFLEX 500 MG CAP 1 po TID x 10 days KEFLEX 500 MG CAP 651735 CEPHALEXIN Inactive BACTRIM DS 800-160 MG TAB 1 tab by mouth twice daily BACTRIM DS 800-160 MG TAB 892682 TRIMETHOPRIM-SULFAMETHOXAZOLE Inactive Advance Directives Directive Description Start [...] % 11.0-15.0 platelet count 185 THOUSAND/UL 10*3/mm3 745-984 9105/04/14 mean platelet volume 10.9 fL 7.5-12.5 Lab Report: Comp. Metabolic Panel, Uric Acid - Chemistry sodium, serum 139 mmol/L 432-513 2670/04/22 carbon dioxide, venous blood 29.4 mmol/L 21.0-32.0 [...] FREE/866 - Chemistry cholesterol, serum 220 mg/dL 477-492 1425/04/14 HDL cholesterol, serum 30 mg/dL > OR=40 triglyceride, serum, fasting 466 mg/dL <150 LDL cholesterol, serum SEE NOTE mg/dL (calc) mg/dL <130 cholesterol/HDL ratio, serum 7.3 (calc) < OR=5.0 Lab Report: MICROALB/CREAT W/RATIO - Chemistry albumin/creatinine ratio, urine < 30 mg/g mg/g{creat} 0-29 Lab Report: MICROALB/CREAT W/RATIO - Lab microalbumin, urine 80 0-19 Lab Report: VITAMIN D, 25-HYDROXY/08904 - Chemistry vitamin D 25-hydroxy, serum 23 ng/mL 30-100 Encounters Code Encounter Date Provider Facility CPT-08275 Level 4 Est. Patient 12:00:49 LINUX PROGRAMMER [facility] CPT-74829 Level 3 Est. Patient 09:16:37 CDT Robbie Busby MD [facility] CPT-15799 Level 3 Est. Patient 19:38:43 CDT Robbie Busby MD [facility]-13288 Level 3 Est. Patient 11:53:38 CDT Robbie Busby MD [facility]-27903 Level 4 Est. Patient 12:52:22 CDT Rober Rodríguez [facility] CPT-66707 Level 4 Est. Patient 22:55:17 CDT Robbie Busby MD [facility]-50930 Level 3 Est. Patient 12:38:24 CDT Desmond Diaz DO [facility] CPT-62907 Level 4 Est. Patient 11:25:03 LINUX PROGRAMMER Robbie Busby MD [facility] CPT-25102 Level 4 Est. Patient 14:50:10 CDT Robbie Busby MD [facility] CPT-27822 Level 4 Est. Patient 23:30:43 CDT Robbie Busby MD [facility] CPT-59117 Level 4 Est. Patient 10:30:43 CDT Robbie Busby MD [facility] CPT-98776 Level 3 Est. Patient 17:08:12 CDT Alex ALVAREZ [facility] CPT-89409 Level 4 Est. Patient 17:51:38 CDT Robbie Busby MD [facility] CPT-72902 Level 4 Est. Patient 14:00:21 CDT Robbie Busby MD [facility] CPT-95475 Level 4 Est. Patient 12:46:48 CDT Robbie Busby MD [facility]-88271 Level 4 Est. Patient 13:34:33 CDT Robbie Busby MD [facility] CPT-26042 Level 4 Est. Patient 16:58:28 CDT Robbie Busby MD [facility] CPT-67594 Level 3 Est. Patient 19:36:53 CDT Alex Howell Tashachelsey KIM [facility] CPT-00591 Level 3 Est. Patient 12:58:15 CDT Robbie Busby MD [facility] Procedures Code Procedure Name Date Entry Date Standard Description CPT-J0696 Rocephin 1000 mg (Ceftriaxone) 17:43:43 LINUX PROGRAMMER CPT-J1040 Depo Medrol 80 mg (Methyl Prednisolone Acetate) 17:43: 43 LINUX PROGRAMMER CPT-J1100 Decadron 8mg (Dexamethasone) 17:43:42 LINUX PROGRAMMER CPT-18828 Abx/Therapy Injection 17:43:42 LINUX PROGRAMMER CPT-73367 Abx/Therapy Injection 17:43:42 LINUX PROGRAMMER CPT-J1040 Depo Medrol 80 mg (Methyl Prednisolone Acetate) 09:43: 34 LINUX PROGRAMMER CPT-J1100 Decadron 8mg (Dexamethasone) 09:43:34 LINUX PROGRAMMER CPT-J0696 Rocephin 1gm Inj Solr 09:43:34 LINUX PROGRAMMER CPT-16128 Wound Culture - LAB USE ONLY 14:00:21 CDT CPT-I/D I/D Abscess 09:16:37 CDT CPT-34044 Venipuncture Draw Fee 15:20:23 CDT CPT-34377 Microalbumin - LAB USE ONLY 16:02:19 CDT CPT-79058 CBC - LAB USE ONLY 16:02:19 CDT CPT-89782 Venipuncture Draw Fee 16:02:19 CDT CPT-G0438 Initial Annual Wellness Exam 08:10:28 CDT CPT-26786 Venipuncture Draw Fee 13:07:17 CDT CPT-G0008 Administration of Influenza Virus Vaccine 16:09:59 CDT CPT-79674 Fluzone Quadrivalent Intramuscular Suspension 0.5 ML 16: 09:59 CDT CPT-96496 Spec Collection and Handling Fee 15:05:50 CDT
--- OUTSIDE RECORDS SUMMARY | 2018-04-18 14:40 | XMS REPORT | Clinical Summary ---
Author Author Admin, AKUA Organization [employer] Address Unknown Phone Unavailable Allergies, Adverse Reactions, [...] unspecified sites URI 465.9 Active Rober Rodríguez NURSE PRACTITIONER ADULT Acute upper respiratory infections of unspecified site [...] 2 weeks for low testosterone TESTOSTERONE CYPIONATE 40854687996 Active Zulema Blank LPN Active CYCLOBENZAPRINE HCL 10 MG ORAL TABS 1 po TID PRN muscle spasm/pain for 10 days CYCLOBENZAPRINE HCL 28845173235 Active JONATHAN Moncada Active GUAIFENESIN 600 MG [id number] 1 tab po q am GUAIFENESIN 88371661926 Active Rober Rodríguez NURSE PRACTITIONER ADULT Active FLUTICASONE PROPIONATE 50 MCG/ACT SUSP 2 sprays per nostril bid for 1 week, then 1 spray bid FLUTICASONE PROPIONATE 63593397794 Active Jishantel Rodríguez APRN Active HYDRALAZINE HCL 25 MG ORAL TABS Take 1 tab BID. HYDRALAZINE HCL 34552014445 Active Rober Rodríguez APRN Active VITAMIN D3 54804 UNIT ORAL TABS 2 po weekly CHOLECALCIFEROL 12064155925 Active JONATHAN Moncada Active OXYCODONE HCL ER 10 MG ORAL T12A 1 tab po 3 times qd. OXYCODONE HCL 07140984575 Active Robbie Busby MD Active NITROSTAT 0.4 MG SUBL PRN NITROGLYCERIN 21453513777 No Longer Active Robbie Busby MD Active LORATADINE 10 MG TABS 1 tablet by mouth daily for congestion and allergies. LORATADINE 38101911878 No Longer Active Robbie Busby MD Active FLONASE 50 MCG/ACT SUSP 1 spray each nostril twice daily for allergies and runny nose FLUTICASONE PROPIONATE 02499400531 No Longer Active Robbie Busby MD Active FIORICET 50-300-40 MG ORAL CAPS take 1 tab po qday prn migraines. [id number] 18072605423 No Longer Active Robbie Busby MD Active VITAMIN D3 18430 UNIT CAPS 2 CAPS PO WEEKLY CHOLECALCIFEROL 69341494344 No Longer Active Robbie Busby MD Active CYCLOBENZAPRINE HCL 10 MG TABS 1 tablet by mouth three times daily as needed for muscle spasm/pain for 10 days CYCLOBENZAPRINE HCL 91616897451 No Longer Active Robbie Busby MD Active PREDNISONE 20 MG TAB take 3 tabs daily for 3 days, 2 tabs daily for 3 days, 1 tab daily for 3 days, 1/2 tab daily for 4 days PREDNISONE 82131986929 No Longer Active Erin Garsia APRN Active CLONIDINE HCL 0.2 MG ORAL TABS 1 TAB BY MOUTH EVERY 8 HOURS 12/29 CLONIDINE HCL 28099286017 No Longer Active Erin Garsia APRN Active MECLIZINE HCL 25 MG TAB one 4 times a day as needed for dizziness MECLIZINE HCL 83496209649 No Longer Active Erin Garsia NURSE PRACTITIONER ADULT Active SPIRONOLACTONE 25 MG TAB 4 tablets by mouth daily SPIRONOLACTONE 12439446120 No Longer Active Erin Garsia APRN Active LEVAQUIN 500 MG TAB 1 tablet by mouth daily for 7 days LEVOFLOXACIN 31101121229 No Longer Active Erin Garsia APRN Active BACTRIM DS 800-160 MG TAB 1 tab by mouth twice daily TRIMETHOPRIM-SULFAMETHOXAZOLE 98763355414 No Longer Active Robbie Busby MD Active HYDRALAZINE HCL 50 MG ORAL TABS TWO BY MOUTH THREE TIMES DAILY HYDRALAZINE HCL 35031498021 No Longer Active Jillina Frazell NURSE PRACTITIONER ADULT Active HYDROCODONE-ACETAMINOPHEN 5-325 MG TABS 1 tab by mouth BID prn back pain 2013 HYDROCODONE-ACETAMINOPHEN 31736690117 No Longer Active Jillina Frazell NURSE PRACTITIONER ADULT Active HYDROCHLOROTHIAZIDE TABS Take one by mouth daily HYDROCHLOROTHIAZIDE TABS 19788177079 No Longer Active Jillina Frazell NURSE PRACTITIONER ADULT Active LAMISIL 125 MG ORAL PACK 1 TAB PO DAILY TERBINAFINE HCL 46594023465 No Longer Active Jillina Frazell NURSE PRACTITIONER ADULT Active TRILEPTAL 150 MG ORAL TABS 1 TAB PO Q HS OXCARBAZEPINE 30529355519 No Longer Active Jillina Frazell NURSE PRACTITIONER ADULT Active BETADINE 10 % EXT SOLN wash with solution to treat follicultis POVIDONE-IODINE 09057904840 No Longer Active Jillina Frazell NURSE PRACTITIONER ADULT Active NYSTATIN 494891 UNIT/ML M/T SUSP 5mL po QID x 10 days NYSTATIN 25282294082 No Longer Active Erin Garsia APRN Active PREDNISONE 20 MG TAB 1 tablet twice daily for 2 days, then 1 tablet once daily for 2 days PREDNISONE 53694534974 No Longer Active Robbie Busby MD Active CEFDINIR 300 MG ORAL CAPS Take 1 cap po bid x 10 days CEFDINIR 84414717999 No Longer Active Robbie Busby MD Active AMLODIPINE BESYLATE 10 MG TABS 1 tablet by mouth daily AMLODIPINE BESYLATE 94021844787 Active Robbie Busby MD Active CARVEDILOL 25 MG TABS 1 & 1/2 TAB po BID CARVEDILOL 91017320142 Active Robbie Busby MD Active NEXIUM 40 MG CPDR 1 cap by mouth daily ESOMEPRAZOLE MAGNESIUM 73150395485 Active Robbie Busby MD Active PROTONIX 40 MG SOLR 1 po qday for acid reflux PANTOPRAZOLE SODIUM 59602209481 No Longer Active Gali Raida Active KEFLEX 500 MG CAP 1 po TID x 10 days CEPHALEXIN 82363808155 No Longer Active Robbie Busby MD Active TOPIRAMATE 50 MG ORAL TABS take 1 tab po BID for migraines. TOPIRAMATE 70328213629 Active Robbie Busby MD Active TEMAZEPAM 15 MG ORAL CAPS 1 TAB PO Q HS TEMAZEPAM 11232244110 Active Robbie Busby MD Active ALPRAZOLAM 2 MG ORAL TABS 1 TAB PO BID ALPRAZOLAM 26767652947 Active Robbie Busby MD Active FENOFIBRATE 145 MG TABS Take one by mouth daily FENOFIBRATE 48029214143 No Longer Active Robbie Busby MD Active SPIRONOLACTONE 50 MG TABS 1 tablet by mouth twice a day SPIRONOLACTONE 74582201333 No Longer Active Robbie Busby MD Active HYDRALAZINE HCL 25 MG TABS 1 tablet by mouth tid for hypertension HYDRALAZINE HCL 19594500699 No Longer Active Robbie Busby MD Active VIIBRYD 40 MG TABS take 1 tab po qday for depression. VILAZODONE HCL 16930079271 No Longer Active Robbie Busby MD Active TERBINAFINE HCL 250 MG TABS 1 tab po qday for foot infection 2014 TERBINAFINE HCL 39310841071 No Longer Active Robbie Busby MD Active GABAPENTIN 300 MG CAPS 1 po q hs for nerve pain GABAPENTIN 76218560848 Active Robbie Busby MD Active CHERATUSSIN AC 100-10 MG/5ML ORAL SOLN 7.5 mL PO q 4-6 hrs PRN cough GUAIFENESIN-CODEINE 40680418072 No Longer Active Robbie Busby MD Active AZITHROMYCIN 250 MG ORAL TABS 2 tablets PO today---then, 1 tablet PO daily x 4 more days (and 1 optional refill) AZITHROMYCIN 42201403436 No Longer Active Robbie Busby MD Active NORVASC 10 MG TAB 1 tablet by mouth daily AMLODIPINE BESYLATE 42539576438 No Longer Active Alex ALVAREZ Active IMDUR 60 MG TAB CR take 1 tab po qday for blood pressure ISOSORBIDE MONONITRATE Active Robbie Busby MD Active ISOSORBIDE DINITRATE 30 MG TABS Take one by mouth daily ISOSORBIDE DINITRATE 94882683069 No Longer Active Robbie Busby MD Active VIIBRYD 40 MG TABS 1 TA B PO DAILY VILAZODONE HCL 09615169786 Active Robbie Busby MD Active ZITHROMAX 250 MG TAB 2 po today, then 1 po q days 2-5 AZITHROMYCIN 22618264544 No Longer Active Robbie Busby MD Active [id number]-YZV-8 0.3 MG/24HR PTWK apply 2 patches q week for HTN CLONIDINE HCL 10743365625 Active Robbie Busby MD Active DOXAZOSIN MESYLATE 4 MG TABS Take one by mouth daily DOXAZOSIN MESYLATE 28179234417 Active Robbie Busby MD Active TOPROL XL 200 MG [id number] Take one by mouth daily METOPROLOL SUCCINATE 96627848021 Active Robbie Busby MD Active VENLAFAXINE HCL ER 150 MG [id number]-[id number] Take one by mouth daily VENLAFAXINE HCL 58539939040 Active Robbie Busby MD Active LIPITOR 40 MG TABS Take one by mouth daily ATORVASTATIN CALCIUM 46855547754 Active Robbie Busby MD Active ISOSORBIDE DINITRATE 30 MG TABS Take one by mouth daily ISOSORBIDE DINITRATE 30 MG TABS 525328 ISOSORBIDE DINITRATE Inactive NORVASC 10 MG TAB 1 tablet by mouth daily NORVASC 10 MG TAB 380312 AMLODIPINE BESYLATE Inactive AZITHROMYCIN 250 MG ORAL TABS 2 tablets PO today---then, 1 tablet PO daily x 4 more days (and 1 optional refill) AZITHROMYCIN 250 MG ORAL TABS 0092627 AZITHROMYCIN Inactive CHERATUSSIN AC 100-10 MG/5ML ORAL SOLN 7.5 mL PO q 4-6 hrs PRN cough CHERATUSSIN AC 100-10 MG/5ML ORAL SOLN 580240 GUAIFENESIN- CODEINE Inactive VIIBRYD 40 MG TABS take 1 tab po qday for depression. VIIBRYD 40 MG TABS VILAZODONE HCL Inactive HYDRALAZINE HCL 25 MG TABS 1 tablet by mouth tid for hypertension HYDRALAZINE HCL 25 MG TABS 478368 HYDRALAZINE HCL Inactive SPIRONOLACTONE 50 MG TABS 1 tablet by mouth twice a day SPIRONOLACTONE 50 MG TABS 191099 SPIRONOLACTONE Inactive FENOFIBRATE 145 MG TABS Take one by mouth daily FENOFIBRATE 145 MG TABS 186879 FENOFIBRATE Inactive PROTONIX 40 MG SOLR 1 po qday for acid reflux PROTONIX 40 MG SOLR 729637 PANTOPRAZOLE SODIUM Inactive CEFDINIR 300 MG ORAL CAPS Take 1 cap po bid x 10 days CEFDINIR 300 MG ORAL CAPS 757014 CEFDINIR Inactive PREDNISONE 20 MG TAB 1 tablet twice daily for 2 days, then 1 tablet once daily for 2 days PREDNISONE 20 MG TAB 524308 PREDNISONE Inactive NYSTATIN 949437 UNIT/ML M/T SUSP 5mL po QID x 10 days NYSTATIN 769818 UNIT/ML M/T SUSP 329439 NYSTATIN Inactive BETADINE 10 % EXT SOLN wash with solution to treat follicultis BETADINE 10 % EXT SOLN 9793809 POVIDONE-IODINE Inactive TRILEPTAL 150 MG ORAL TABS 1 TAB PO Q HS TRILEPTAL 150 MG ORAL TABS 986880 OXCARBAZEPINE Inactive LAMISIL 125 MG ORAL PACK 1 TAB PO DAILY LAMISIL 125 MG ORAL PACK TERBINAFINE HCL Inactive HYDROCHLOROTHIAZIDE TABS Take one by mouth daily HYDROCHLOROTHIAZIDE TABS HYDROCHLOROTHIAZIDE TABS Inactive HYDROCODONE-ACETAMINOPHEN 5-325 MG TABS 1 tab by mouth BID prn back pain 2013 HYDROCODONE-ACETAMINOPHEN 5-325 MG TABS 706769 HYDROCODONE -ACETAMINOPHEN Inactive HYDRALAZINE HCL 50 MG ORAL TABS TWO BY MOUTH THREE TIMES DAILY HYDRALAZINE HCL 50 MG ORAL TABS 686726 HYDRALAZINE HCL Inactive LEVAQUIN 500 MG TAB 1 tablet by mouth daily for 7 days LEVAQUIN 500 MG TAB 073961 LEVOFLOXACIN Inactive SPIRONOLACTONE 25 MG TAB 4 tablets by mouth daily SPIRONOLACTONE 25 MG TAB 725129 SPIRONOLACTONE Inactive MECLIZINE HCL 25 MG TAB one 4 times a day as needed for dizziness MECLIZINE HCL 25 MG TAB 701193 MECLIZINE HCL Inactive CLONIDINE HCL 0.2 MG ORAL TABS 1 TAB BY MOUTH EVERY 8 HOURS 12/29 CLONIDINE HCL 0.2 MG ORAL TABS 262512 CLONIDINE HCL Inactive CYCLOBENZAPRINE HCL 10 MG TABS 1 tablet by mouth three times daily as needed for muscle spasm/pain for 10 days CYCLOBENZAPRINE HCL 10 MG TABS 065493 CYCLOBENZAPRINE HCL Inactive VITAMIN D3 52250 UNIT CAPS 2 CAPS PO WEEKLY VITAMIN D3 98614 UNIT CAPS CHOLECALCIFEROL Inactive FIORICET 50-300-40 MG ORAL CAPS take 1 tab po qday prn migraines. FIORICET 50-300-40 MG ORAL CAPS 087152 [id number]-[id number] Inactive FLONASE 50 MCG/ACT SUSP 1 spray each nostril twice daily for allergies and runny nose FLONASE 50 MCG/ACT SUSP 1878629 FLUTICASONE PROPIONATE Inactive LORATADINE 10 MG TABS 1 tablet by mouth daily for congestion and allergies. LORATADINE 10 MG TABS 285126 LORATADINE Inactive NITROSTAT 0.4 MG SUBL PRN NITROSTAT 0.4 MG SUBL 607257 NITROGLYCERIN Inactive ZITHROMAX 250 MG TAB 2 po today, then 1 po q days 2-5 ZITHROMAX 250 MG TAB 9627950 AZITHROMYCIN Inactive TERBINAFINE HCL 250 MG TABS 1 tab po qday for foot infection 2014 TERBINAFINE HCL 250 MG TABS 016261 TERBINAFINE HCL Inactive KEFLEX 500 MG CAP 1 po TID x 10 days KEFLEX 500 MG CAP 013027 CEPHALEXIN Inactive BACTRIM DS 800-160 MG TAB 1 tab by mouth twice daily BACTRIM DS 800-160 MG TAB 683851 TRIMETHOPRIM-SULFAMETHOXAZOLE Inactive PREDNISONE 20 MG TAB take 3 tabs daily for 3 days, 2 tabs daily for 3 days, 1 tab daily for 3 days, 1/2 tab daily for 4 days PREDNISONE 20 MG TAB 491584 PREDNISONE Inactive Advance Directives Directive Description Start [...] AUTO - Chemistry sodium, serum 142 mmol/L 003-891 1710/07/17 carbon dioxide, venous blood 28.2 mmol/L 21.0-32.0 [...] % 11.0-15.0 platelet count 185 THOUSAND/UL 10*3/mm3 252-289 3951/04/14 mean platelet volume 10.9 fL 7.5-12.5 Lab Report: LIPID PANEL, TSH/899, T4, FREE/866 - Chemistry cholesterol, serum 220 mg/dL 506-407 5354/04/14 HDL cholesterol, serum 30 mg/dL > OR=40 triglyceride, serum, fasting 466 mg/dL <150 LDL cholesterol, serum SEE NOTE mg/dL (calc) mg/dL <130 cholesterol/HDL ratio, serum 7.3 (calc) < OR=5.0 Lab Report: MICROALB/CREAT W/RATIO - Chemistry albumin/creatinine ratio, urine < 30 mg/g mg/g{creat} 0-29 Lab Report: MICROALB/CREAT W/RATIO - Lab microalbumin, urine 80 0-19 Lab Report: VITAMIN D, 25-HYDROXY/93263 - Chemistry vitamin D 25-hydroxy, serum 25 ng/mL 30-100 Office Visit: Confusion, dizziness after fall - Basic LDL target level 130 mg/dL Office Visit: Confusion, dizziness after fall - Chemistry HDL cholesterol, serum, target level 40 mg/dL triglyceride, target level 150 mg/dL cholesterol, target level 200 mg/dL Encounters Code Encounter Date Provider Facility CPT-75536 Level 3 Est. Patient 09:00:37 CDT Rober Rodríguez [facility] CPT-35411 Level 3 Est. Patient 16:07:10 CDT Robbie Busby MD [facility] CPT-53707 Level 4 Est. Patient 11:56:16 CDT Erin Garsia [facility] CPT-95438 Level 3 Est. Patient 17:48:02 CDT Robbie Busby MD [facility] CPT-04496 Level 4 Est. Patient 12:00:49 LICENSED NURSE PRACTITIONER Rober Rodríguez [facility] CPT-63605 Level 3 Est. Patient 09:16:37 CDT Robbie Busby MD [facility] CPT-26748 Level 3 Est. Patient 19:38:43 CDT Robbie Busby MD [facility] CPT-09898 Level 3 Est. Patient 11:53:38 CDT Robbie Busby MD [facility] CPT-26455 Level 4 Est. Patient 12:52:22 CDT Rober Rodríguez [facility] CPT-61187 Level 4 Est. Patient 22:55:17 CDT Robbie Busby MD [facility] CPT-87603 Level 3 Est. Patient 12:38:24 CDT Desmond Diaz DO [facility] CPT-10532 Level 4 Est. Patient 11:25:03 LICENSED NURSE PRACTITIONER Robbie Busby MD [facility] CPT-56054 Level 4 Est. Patient 14:50:10 CDT Robbie Busby MD [facility] CPT-72207 Level 4 Est. Patient 23:30:43 CDT Robbie Busby MD [facility] CPT-93232 Level 4 Est. Patient 10:30:43 CDT Robbie Busby MD [facility] CPT-46262 Level 3 Est. Patient 17:08:12 CDT Alex ALVAREZ [facility] CPT-29130 Level 4 Est. Patient 17:51:38 CDT Robbie Busby MD [facility] CPT-37785 Level 4 Est. Patient 14:00:21 CDT Robbie Busby MD [facility] CPT-90178 Level 4 Est. Patient 12:46:48 CDT Robbie Busby MD [facility] CPT-21059 Level 4 Est. Patient 13:34:33 CDT Robbie Busby MD [facility] CPT-61258 Level 4 Est. Patient 16:58:28 CDT Robbie Busby MD [facility] CPT-43166 Level 3 Est. Patient 19:36:53 CDT Alex Shaw [facility] CPT-65034 Level 3 Est. Patient 12:58:15 CDT Robbie Busby MD [facility] Procedures Code Procedure Name Date Entry Date Standard Description CPT-J1071 Depo Testosterone 200mg 08:24:00 CDT CPT-45537 Abx/Therapy Injection 08:24:00 CDT CPT-46283 Venipuncture Draw Fee 14:39:06 CDT CPT-65687 Ribs unilateral 2V - XRAY USE ONLY 12:10:11 CDT CPT-46037 First Vx - Ix admin for Medicare patients 16:32:53 CDT CPT-02756 Boostrix Intramuscular Suspension 5-2.5-18.5 16:32:53 CDT CPT-58794 TB Skin Test 11:42:28 CDT CPT-21007 Tdap 7yrs or > 11:42:28 CDT CPT-J0696 Rocephin 1000 mg (Ceftriaxone) 17:43:43 LICENSED NURSE PRACTITIONER CPT-J1040 Depo Medrol 80 mg (Methyl Prednisolone Acetate) 17:43: 43 LICENSED NURSE PRACTITIONER CPT-J1100 Decadron 8mg (Dexamethasone) 17:43:42 LICENSED NURSE PRACTITIONER CPT-99383 Abx/Therapy Injection 17:43:42 LICENSED NURSE PRACTITIONER CPT-80085 Abx/Therapy Injection 17:43:42 LICENSED NURSE PRACTITIONER CPT-J1040 Depo Medrol 80 mg (Methyl Prednisolone Acetate) 09:43: 34 LICENSED NURSE PRACTITIONER CPT-J1100 Decadron 8mg (Dexamethasone) 09:43:34 LICENSED NURSE PRACTITIONER CPT-J0696 Rocephin 1gm Inj Solr 09:43:34 LICENSED NURSE PRACTITIONER CPT-58776 Wound Culture - LAB USE ONLY 14:00:21 CDT CPT-I/D I/D Abscess 09:16:37 CDT CPT-25923 Venipuncture Draw Fee 15:20:23 CDT CPT-61616 Microalbumin - LAB USE ONLY 16:02:19 CDT CPT-83622 CBC - LAB USE ONLY 16:02:19 CDT CPT-80518 Venipuncture Draw Fee 16:02:19 CDT CPT-G0438 Initial Annual Wellness Exam 08:10:28 CDT CPT-92071 Venipuncture Draw Fee 13:07:17 CDT CPT-G0008 Administration of Influenza Virus Vaccine 16:09:59 CDT CPT-87618 Fluzone Quadrivalent Intramuscular Suspension 0.5 ML 16: 09:59 CDT CPT-07240 Spec Collection and Handling Fee 15:05:50 CDT
--- OUTSIDE RECORDS SUMMARY | 2018-04-18 14:42 | XMS REPORT | Clinical Summary ---
Author Author Admin, [facility] Organization [facility] Address Unknown [...] muscle spasm/pain for 10 days CYCLOBENZAPRINE HCL 85891950008 Active Erin Garsia APRN Active PREDNISONE 20 MG TAB take 3 tabs daily for 3 days, 2 tabs daily for 3 days, 1 tab daily for 3 days, 1/2 tab daily for 4 days PREDNISONE 59385668558 No Longer Active Erin Garsia APRN Active CLONIDINE HCL 0.2 MG ORAL TABS 1 TAB BY MOUTH EVERY 8 HOURS 12/29 CLONIDINE HCL 08916140547 No Longer Active Erin Garsia APRN Active MECLIZINE HCL 25 MG TAB one 4 times a day as needed for dizziness MECLIZINE HCL 38834413751 No Longer Active Erin Garsia APRN Active SPIRONOLACTONE 25 MG TAB 4 tablets by mouth daily SPIRONOLACTONE 24784194690 No Longer Active Erin Garsia APRN Active LEVAQUIN 500 MG TAB 1 tablet by mouth daily for 7 days LEVOFLOXACIN 32381881707 No Longer Active Erin Garsia APRN Active BACTRIM DS 800-160 MG TAB 1 tab by mouth twice daily TRIMETHOPRIM-SULFAMETHOXAZOLE 53755440624 No Longer Active Robbie Busby MD Active HYDRALAZINE HCL 50 MG ORAL TABS TWO BY MOUTH THREE TIMES DAILY HYDRALAZINE HCL 12291112116 No Longer Active 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 HYDROCODONE-ACETAMINOPHEN 5-325 MG TABS 1 tab by mouth BID prn back pain 2013 HYDROCODONE-ACETAMINOPHEN 65453781480 No Longer Active 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 HYDROCHLOROTHIAZIDE TABS Take one by mouth daily HYDROCHLOROTHIAZIDE TABS 54147452135 No Longer Active 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 LAMISIL 125 MG ORAL PACK 1 TAB PO DAILY TERBINAFINE HCL 93590740619 No Longer Active 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 TRILEPTAL 150 MG ORAL TABS 1 TAB PO Q HS OXCARBAZEPINE 90463138304 No Longer Active 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 BETADINE 10 % EXT SOLN wash with solution to treat follicultis POVIDONE-IODINE 54181678811 No Longer Active Andrellina Anne GONZALEZN Active NYSTATIN 024875 UNIT/ML M/T SUSP 5mL po QID x 10 days NYSTATIN 82013054234 No Longer Active Erin Garsia APRN Active PREDNISONE 20 MG TAB 1 tablet twice daily for 2 days, then 1 tablet once daily for 2 days PREDNISONE 17632273503 No Longer Active Robbie Busby MD Active CEFDINIR 300 MG ORAL CAPS Take 1 cap po bid x 10 days CEFDINIR 95549522901 No Longer Active Robbie Busby MD Active AMLODIPINE BESYLATE 10 MG TABS 1 tablet by mouth daily AMLODIPINE BESYLATE 91306883315 Active Robbie Busby MD Active CARVEDILOL 25 MG TABS 1 & 1/2 TAB po BID CARVEDILOL 50041340597 Active Erin Garsia APRN Active VITAMIN D3 49624 UNIT CAPS 2 CAPS PO WEEKLY CHOLECALCIFEROL 89717263515 Active Erin Garsia APRN Active NEXIUM 40 MG CPDR 1 cap by mouth daily ESOMEPRAZOLE MAGNESIUM 70972359691 Active Robbie Busby MD Active PROTONIX 40 MG SOLR 1 po qday for acid reflux PANTOPRAZOLE SODIUM 50389718880 No Longer Active Gali Negro Active KEFLEX 500 MG CAP 1 po TID x 10 days CEPHALEXIN 89636643773 No Longer Active Robbie Busby MD Active FIORICET 50-300-40 MG ORAL CAPS take 1 tab po qday prn migraines. [id number] 86823431287 Active Robbie Busby MD Active TOPIRAMATE 50 MG ORAL TABS take 1 tab po BID for migraines. TOPIRAMATE 68221667110 Active Robbie Busby MD Active TEMAZEPAM 15 MG ORAL CAPS 1 TAB PO Q HS TEMAZEPAM 95730301520 Active Robbie Busby MD Active ALPRAZOLAM 2 MG ORAL TABS 1 TAB PO BID ALPRAZOLAM 95520833463 Active Robbie Busby MD Active FENOFIBRATE 145 MG TABS Take one by mouth daily FENOFIBRATE 48607463150 No Longer Active Robbie Busby MD Active SPIRONOLACTONE 50 MG TABS 1 tablet by mouth twice a day SPIRONOLACTONE 63404047595 No Longer Active Robbie Busby MD Active HYDRALAZINE HCL 25 MG TABS 1 tablet by mouth tid for hypertension HYDRALAZINE HCL 63259038054 No Longer Active Robbie Busby MD Active VIIBRYD 40 MG TABS take 1 tab po qday for depression. VILAZODONE HCL 19515586206 No Longer Active Robbie Busby MD Active TERBINAFINE HCL 250 MG TABS 1 tab po qday for foot infection 2014 TERBINAFINE HCL 21385655832 No Longer Active Robbie Busby MD Active GABAPENTIN 300 MG CAPS 1 po q hs for nerve pain GABAPENTIN 07352262868 Active Robbie Busby MD Active FLONASE 50 MCG/ACT SUSP 1 spray each nostril twice daily for allergies and runny nose FLUTICASONE PROPIONATE 48362558010 Active Robbie Busby MD Active CHERATUSSIN AC 100-10 MG/5ML ORAL SOLN 7.5 mL PO q 4-6 hrs PRN cough GUAIFENESIN-CODEINE 04248628969 No Longer Active Robbie Busby MD Active AZITHROMYCIN 250 MG ORAL TABS 2 tablets PO today---then, 1 tablet PO daily x 4 more days (and 1 optional refill) AZITHROMYCIN 57802801123 No Longer Active Robbie Busby MD Active NORVASC 10 MG TAB 1 tablet by mouth daily AMLODIPINE BESYLATE 24069780545 No Longer Active Alex ALVAREZ Active IMDUR 60 MG TAB CR take 1 tab po qday for blood pressure ISOSORBIDE MONONITRATE Active Robbie Busby MD Active ISOSORBIDE DINITRATE 30 MG TABS Take one by mouth daily ISOSORBIDE DINITRATE 46445571218 No Longer Active Robbie Busby MD Active VIIBRYD 40 MG TABS 1 TA B PO DAILY VILAZODONE HCL 77783482313 Active Robbie Busby MD Active LORATADINE 10 MG TABS 1 tablet by mouth daily for congestion and allergies. LORATADINE 03565862067 Active Robbie Busby MD Active ZITHROMAX 250 MG TAB 2 po today, then 1 po q days 2-5 AZITHROMYCIN 26702825008 No Longer Active Robbie Busby MD Active [id number] 0.3 MG/24HR PTWK apply 2 patches q week for HTN CLONIDINE HCL 11206867199 Active Robbie Busby MD Active NITROSTAT 0.4 MG SUBL PRN NITROGLYCERIN 19945261171 Active Robbie Busby MD Active DOXAZOSIN MESYLATE 4 MG TABS Take one by mouth daily DOXAZOSIN MESYLATE 16056467187 Active Erinmarianne Garsia [employer] WE[employer] DEVELOPER Active TOPROL XL 200 MG [id number] Take one by mouth daily METOPROLOL SUCCINATE 51106479516 Active Robbie Busby MD Active VENLAFAXINE HCL ER 150 MG [id number] Take one by mouth daily VENLAFAXINE HCL 16142906135 Active Robbie Busby MD Active LIPITOR 40 MG TABS Take one by mouth daily ATORVASTATIN CALCIUM 74676758540 Active Robbie Busby MD Active ISOSORBIDE DINITRATE 30 MG TABS Take one by mouth daily ISOSORBIDE DINITRATE 30 MG TABS 713647 ISOSORBIDE DINITRATE Inactive NORVASC 10 MG TAB 1 tablet by mouth daily NORVASC 10 MG TAB 843481 AMLODIPINE BESYLATE Inactive AZITHROMYCIN 250 MG ORAL TABS 2 tablets PO today---then, 1 tablet PO daily x 4 more days (and 1 optional refill) AZITHROMYCIN 250 MG ORAL TABS 6036965 AZITHROMYCIN Inactive CHERATUSSIN AC 100-10 MG/5ML ORAL SOLN 7.5 mL PO q 4-6 hrs PRN cough CHERATUSSIN AC 100-10 MG/5ML ORAL SOLN 578597 GUAIFENESIN- CODEINE Inactive VIIBRYD 40 MG TABS take 1 tab po qday for depression. VIIBRYD 40 MG TABS VILAZODONE HCL Inactive HYDRALAZINE HCL 25 MG TABS 1 tablet by mouth tid for hypertension HYDRALAZINE HCL 25 MG TABS 422393 HYDRALAZINE HCL Inactive SPIRONOLACTONE 50 MG TABS 1 tablet by mouth twice a day SPIRONOLACTONE 50 MG TABS 714822 SPIRONOLACTONE Inactive FENOFIBRATE 145 MG TABS Take one by mouth daily FENOFIBRATE 145 MG TABS 762011 FENOFIBRATE Inactive PROTONIX 40 MG SOLR 1 po qday for acid reflux PROTONIX 40 MG SOLR 344067 PANTOPRAZOLE SODIUM Inactive CEFDINIR 300 MG ORAL CAPS Take 1 cap po bid x 10 days CEFDINIR 300 MG ORAL CAPS 064084 CEFDINIR Inactive PREDNISONE 20 MG TAB 1 tablet twice daily for 2 days, then 1 tablet once daily for 2 days PREDNISONE 20 MG TAB 741297 PREDNISONE Inactive NYSTATIN 363370 UNIT/ML M/T SUSP 5mL po QID x 10 days NYSTATIN 101599 UNIT/ML M/T SUSP 301745 NYSTATIN Inactive BETADINE 10 % EXT SOLN wash with solution to treat follicultis BETADINE 10 % EXT SOLN 3483475 POVIDONE-IODINE Inactive TRILEPTAL 150 MG ORAL TABS 1 TAB PO Q HS TRILEPTAL 150 MG ORAL TABS 683600 OXCARBAZEPINE Inactive LAMISIL 125 MG ORAL PACK 1 TAB PO DAILY LAMISIL 125 MG ORAL PACK TERBINAFINE HCL Inactive HYDROCHLOROTHIAZIDE TABS Take one by mouth daily HYDROCHLOROTHIAZIDE TABS HYDROCHLOROTHIAZIDE TABS Inactive HYDROCODONE-ACETAMINOPHEN 5-325 MG TABS 1 tab by mouth BID prn back pain 2013 HYDROCODONE-ACETAMINOPHEN 5-325 MG TABS 251136 HYDROCODONE -ACETAMINOPHEN Inactive HYDRALAZINE HCL 50 MG ORAL TABS TWO BY MOUTH THREE TIMES DAILY HYDRALAZINE HCL 50 MG ORAL TABS 189106 HYDRALAZINE HCL Inactive LEVAQUIN 500 MG TAB 1 tablet by mouth daily for 7 days LEVAQUIN 500 MG TAB 513534 LEVOFLOXACIN Inactive SPIRONOLACTONE 25 MG TAB 4 tablets by mouth daily SPIRONOLACTONE 25 MG TAB 064860 SPIRONOLACTONE Inactive MECLIZINE HCL 25 MG TAB one 4 times a day as needed for dizziness MECLIZINE HCL 25 MG TAB 239274 MECLIZINE HCL Inactive CLONIDINE HCL 0.2 MG ORAL TABS 1 TAB BY MOUTH EVERY 8 HOURS 12/29 CLONIDINE HCL 0.2 MG ORAL TABS 339864 CLONIDINE HCL Inactive ZITHROMAX 250 MG TAB 2 po today, then 1 po q days 2-5 ZITHROMAX 250 MG TAB 8585814 AZITHROMYCIN Inactive TERBINAFINE HCL 250 MG TABS 1 tab po qday for foot infection 2014 TERBINAFINE HCL 250 MG TABS 073553 TERBINAFINE HCL Inactive KEFLEX 500 MG CAP 1 po TID x 10 days KEFLEX 500 MG CAP 433399 CEPHALEXIN Inactive BACTRIM DS 800-160 MG TAB 1 tab by mouth twice daily BACTRIM DS 800-160 MG TAB 890241 TRIMETHOPRIM-SULFAMETHOXAZOLE Inactive PREDNISONE 20 MG TAB take 3 tabs daily for 3 days, 2 tabs daily for 3 days, 1 tab daily for 3 days, 1/2 tab daily for 4 days PREDNISONE 20 MG TAB 715795 PREDNISONE Inactive Advance Directives Directive Description Start [...] % 11.0-15.0 platelet count 185 THOUSAND/UL 10*3/mm3 982-797 4440/04/14 mean platelet volume 10.9 fL 7.5-12.5 Lab Report: HEPATITIS B SAB/Immune Status, RUBELLA IGG AB(Immune Status) - Serology rubella antibody, serum, IgG 2.06 Lab Report: LIPID PANEL, TSH/899, T4, FREE/866 - Chemistry cholesterol, serum 220 mg/dL 379-887 1340/04/14 HDL cholesterol, serum 30 mg/dL > OR=40 triglyceride, serum, fasting 466 mg/dL <150 LDL cholesterol, serum SEE NOTE mg/dL (calc) mg/dL <130 cholesterol/HDL ratio, serum 7.3 (calc) < OR=5.0 Lab Report: MICROALB/CREAT W/RATIO - Chemistry albumin/creatinine ratio, urine < 30 mg/g mg/g{creat} 0-29 Lab Report: MICROALB/CREAT W/RATIO - Lab microalbumin, urine 80 0-19 Lab Report: VITAMIN D, 25-HYDROXY/51821 - Chemistry vitamin D 25-hydroxy, serum 23 ng/mL 30-100 Encounters Code Encounter Date Provider Facility CPT-60075 Level 4 Est. 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 Patient 09:16:37 CDT Robbie Busby MD [facility] CPT-32610 Level 3 Est. Patient 19:38:43 CDT Robbie Busby MD [facility] CPT-94585 Level 3 Est. Patient 11:53:38 CDT Robbie Busby MD [facility] CPT-75171 Level 4 Est. Patient 12:52:22 CDT Rober Rodríguez [facility] CPT-62356 Level 4 Est. Patient 22:55:17 CDT Robbie Busby MD [facility] CPT-97432 Level 3 Est. Patient 12:38:24 CDT Desmond Diaz DO [facility] CPT-20424 Level 4 Est. Patient 11:25:03 CAR DROPPER Robbie Busby MD [facility] CPT-45587 Level 4 Est. Patient 14:50:10 CDT Robbie Busby MD [facility] CPT-82102 Level 4 Est. Patient 23:30:43 CDT Robbie Busby MD [facility] CPT-72121 Level 4 Est. Patient 10:30:43 CDT Robbie Busby MD [facility] CPT-43001 Level 3 Est. Patient 17:08:12 CDT Alex ALVAREZ [facility] CPT-03102 Level 4 Est. Patient 17:51:38 CDT Robbie Busby MD [facility] CPT-55530 Level 4 Est. Patient 14:00:21 CDT Robbie Busby MD [facility] CPT-61756 Level 4 Est. Patient 12:46:48 CDT Robbie Busby MD [facility] CPT-39730 Level 4 Est. Patient 13:34:33 CDT Robbie Busby MD [facility] CPT-98391 Level 4 Est. Patient 16:58:28 CDT Robbie Busby MD [facility] CPT-46469 Level 3 Est. Patient 19:36:53 CDT Alex Shaw [facility] CPT-28946 Level 3 Est. Patient 12:58:15 CDT Robbie Busby MD [facility] Procedures Code Procedure Name Date Entry Date Standard Description CPT-J0696 Rocephin 1000 mg (Ceftriaxone) 17:43:43 CAR DROPPER CPT-J1040 Depo Medrol 80 mg (Methyl Prednisolone Acetate) 17:43: 43 CAR DROPPER CPT-J1100 Decadron 8mg (Dexamethasone) 17:43:42 CAR DROPPER CPT-16765 Abx/Therapy Injection 17:43:42 CAR DROPPER CPT-61607 Abx/Therapy Injection 17:43:42 CAR DROPPER CPT-J1040 Depo Medrol 80 mg (Methyl Prednisolone Acetate) 09:43: 34 CAR DROPPER CPT-J1100 Decadron 8mg (Dexamethasone) 09:43:34 CAR DROPPER CPT-J0696 Rocephin 1gm Inj Solr 09:43:34 CAR DROPPER CPT-30064 Wound Culture - LAB USE ONLY 14:00:21 CDT CPT-I/D I/D Abscess 09:16:37 CDT CPT-05846 Venipuncture Draw Fee 15:20:23 CDT CPT-90760 Microalbumin - LAB USE ONLY 16:02:19 CDT CPT-96929 CBC - LAB USE ONLY 16:02:19 CDT CPT-68855 Venipuncture Draw Fee 16:02:19 CDT CPT-G0438 Initial Annual Wellness Exam 08:10:28 CDT CPT-01895 Venipuncture Draw Fee 13:07:17 CDT CPT-G0008 Administration of Influenza Virus Vaccine 16:09:59 CDT CPT-83881 Fluzone Quadrivalent Intramuscular Suspension 0.5 ML 16: 09:59 CDT CPT-04163 Spec Collection and Handling Fee 15:05:50 CDT
--- OUTSIDE RECORDS SUMMARY | 2018-04-18 14:44 | XMS REPORT | Clinical Summary ---
Author Author Admin, AKUA Organization [employer] Address Unknown Phone Unavailable Allergies, Adverse Reactions, [...] mention of status migrainosus BPH 600.00 Active oRbbie Busby MD Hypertrophy (benign) of prostate without [...] unspecified sites URI 465.9 Active Rober Rodríguez [employer] Acute upper respiratory infections of unspecified site [...] 2 weeks for low testosterone TESTOSTERONE CYPIONATE 38130060494 Active Zulema Blank LPN Active CYCLOBENZAPRINE HCL 10 MG ORAL TABS 1 po TID PRN muscle spasm/pain for 10 days CYCLOBENZAPRINE HCL 91541536081 Active JONATHAN Moncada Active GUAIFENESIN 600 MG [id number] 1 tab po q am GUAIFENESIN 58662535964 Active Rober Rodríguez [employer] Active FLUTICASONE PROPIONATE 50 MCG/ACT SUSP 2 sprays per nostril bid for 1 week, then 1 spray bid FLUTICASONE PROPIONATE 37910590521 Active Jishantel Rodríguez APRN Active HYDRALAZINE HCL 25 MG ORAL TABS Take 1 tab BID. HYDRALAZINE HCL 47317361832 Active Rober Rodríguez APRN Active VITAMIN D3 85874 UNIT ORAL TABS 2 po weekly CHOLECALCIFEROL 64837680829 Active JONATHAN Moncada Active OXYCODONE HCL ER 10 MG ORAL T12A 1 tab po 3 times qd. OXYCODONE HCL 36537839561 Active Robbie Busby MD Active NITROSTAT 0.4 MG SUBL PRN NITROGLYCERIN 53884986076 No Longer Active Robbie Busby MD Active LORATADINE 10 MG TABS 1 tablet by mouth daily for congestion and allergies. LORATADINE 50104117544 No Longer Active Robbie Busby MD Active FLONASE 50 MCG/ACT SUSP 1 spray each nostril twice daily for allergies and runny nose FLUTICASONE PROPIONATE 80687896101 No Longer Active Robbie Busby MD Active FIORICET 50-300-40 MG ORAL CAPS take 1 tab po qday prn migraines. [id number] 90620764087 No Longer Active Robbie Busby MD Active VITAMIN D3 83872 UNIT CAPS 2 CAPS PO WEEKLY CHOLECALCIFEROL 78701984352 No Longer Active Robbie Busby MD Active CYCLOBENZAPRINE HCL 10 MG TABS 1 tablet by mouth three times daily as needed for muscle spasm/pain for 10 days CYCLOBENZAPRINE HCL 33753353299 No Longer Active Robbie Busby MD Active PREDNISONE 20 MG TAB take 3 tabs daily for 3 days, 2 tabs daily for 3 days, 1 tab daily for 3 days, 1/2 tab daily for 4 days PREDNISONE 70526099963 No Longer Active Erin Garsia APRN Active CLONIDINE HCL 0.2 MG ORAL TABS 1 TAB BY MOUTH EVERY 8 HOURS 12/29 CLONIDINE HCL 99819902364 No Longer Active Erin Garsia APRN Active MECLIZINE HCL 25 MG TAB one 4 times a day as needed for dizziness MECLIZINE HCL 52044089099 No Longer Active Erin Garsia [employer] Active SPIRONOLACTONE 25 MG TAB 4 tablets by mouth daily SPIRONOLACTONE 06893125634 No Longer Active Erin Garsia APRN Active LEVAQUIN 500 MG TAB 1 tablet by mouth daily for 7 days LEVOFLOXACIN 37415508137 No Longer Active Erin Garsia APRN Active BACTRIM DS 800-160 MG TAB 1 tab by mouth twice daily TRIMETHOPRIM-SULFAMETHOXAZOLE 84715108075 No Longer Active Robbie Busby MD Active HYDRALAZINE HCL 50 MG ORAL TABS TWO BY MOUTH THREE TIMES DAILY HYDRALAZINE HCL 46995560350 No Longer Active Jillina Frazell [employer] Active HYDROCODONE-ACETAMINOPHEN 5-325 MG TABS 1 tab by mouth BID prn back pain 2013 HYDROCODONE-ACETAMINOPHEN 93420870900 No Longer Active Jillina Frazell [employer] Active HYDROCHLOROTHIAZIDE TABS Take one by mouth daily HYDROCHLOROTHIAZIDE TABS 71993007722 No Longer Active Jillina Frazell [employer] Active LAMISIL 125 MG ORAL PACK 1 TAB PO DAILY TERBINAFINE HCL 73659922727 No Longer Active Jillina Frazell [employer] Active TRILEPTAL 150 MG ORAL TABS 1 TAB PO Q HS OXCARBAZEPINE 44151934952 No Longer Active Jillina Frazell [employer] Active BETADINE 10 % EXT SOLN wash with solution to treat follicultis POVIDONE-IODINE 26216009521 No Longer Active Jillina Frazell [employer] Active NYSTATIN 000094 UNIT/ML M/T SUSP 5mL po QID x 10 days NYSTATIN 63335053421 No Longer Active Erin Garsia APRN Active PREDNISONE 20 MG TAB 1 tablet twice daily for 2 days, then 1 tablet once daily for 2 days PREDNISONE 48561530267 No Longer Active Robbie Busby MD Active CEFDINIR 300 MG ORAL CAPS Take 1 cap po bid x 10 days CEFDINIR 45979163282 No Longer Active Robbie Busby MD Active AMLODIPINE BESYLATE 10 MG TABS 1 tablet by mouth daily AMLODIPINE BESYLATE 57241957513 Active Robbie Busby MD Active CARVEDILOL 25 MG TABS 1 & 1/2 TAB po BID CARVEDILOL 83222059505 Active Robbie Busby MD Active NEXIUM 40 MG CPDR 1 cap by mouth daily ESOMEPRAZOLE MAGNESIUM 08488516973 Active Robbie Busby MD Active PROTONIX 40 MG SOLR 1 po qday for acid reflux PANTOPRAZOLE SODIUM 40764463470 No Longer Active Gali Raida Active KEFLEX 500 MG CAP 1 po TID x 10 days CEPHALEXIN 57383154688 No Longer Active Robbie Busby MD Active TOPIRAMATE 50 MG ORAL TABS take 1 tab po BID for migraines. TOPIRAMATE 36083387232 Active Robbie Busby MD Active TEMAZEPAM 15 MG ORAL CAPS 1 TAB PO Q HS TEMAZEPAM 64035217589 Active Robbie Busby MD Active ALPRAZOLAM 2 MG ORAL TABS 1 TAB PO BID ALPRAZOLAM 17505042589 Active Robbie Busby MD Active FENOFIBRATE 145 MG TABS Take one by mouth daily FENOFIBRATE 46144601929 No Longer Active Robbie Busby MD Active SPIRONOLACTONE 50 MG TABS 1 tablet by mouth twice a day SPIRONOLACTONE 06424461574 No Longer Active Robbie Busby MD Active HYDRALAZINE HCL 25 MG TABS 1 tablet by mouth tid for hypertension HYDRALAZINE HCL 84920843451 No Longer Active Robbie Busby MD Active VIIBRYD 40 MG TABS take 1 tab po qday for depression. VILAZODONE HCL 37183616216 No Longer Active Robbie Busby MD Active TERBINAFINE HCL 250 MG TABS 1 tab po qday for foot infection 2014 TERBINAFINE HCL 73706623554 No Longer Active Robbie Busby MD Active GABAPENTIN 300 MG CAPS 1 po q hs for nerve pain GABAPENTIN 75399122300 Active Robbie Busby MD Active CHERATUSSIN AC 100-10 MG/5ML ORAL SOLN 7.5 mL PO q 4-6 hrs PRN cough GUAIFENESIN-CODEINE 61314542354 No Longer Active Robbie Busby MD Active AZITHROMYCIN 250 MG ORAL TABS 2 tablets PO today---then, 1 tablet PO daily x 4 more days (and 1 optional refill) AZITHROMYCIN 55128885766 No Longer Active Robbie Busby MD Active NORVASC 10 MG TAB 1 tablet by mouth daily AMLODIPINE BESYLATE 89810976951 No Longer Active Alex ALVAREZ Active IMDUR 60 MG TAB CR take 1 tab po qday for blood pressure ISOSORBIDE MONONITRATE Active Robbie Busby MD Active ISOSORBIDE DINITRATE 30 MG TABS Take one by mouth daily ISOSORBIDE DINITRATE 55082399124 No Longer Active Robbie Busby MD Active VIIBRYD 40 MG TABS 1 TA B PO DAILY VILAZODONE HCL 04860995635 Active Robbie Busby MD Active ZITHROMAX 250 MG TAB 2 po today, then 1 po q days 2-5 AZITHROMYCIN 61812690073 No Longer Active Robbie Busby MD Active [id number]-CBL-7 0.3 MG/24HR PTWK apply 2 patches q week for HTN CLONIDINE HCL 46930759071 Active Robbie Busby MD Active DOXAZOSIN MESYLATE 4 MG TABS Take one by mouth daily DOXAZOSIN MESYLATE 03632059064 Active Robbie Busby MD Active TOPROL XL 200 MG [id number]-BWD Take one by mouth daily METOPROLOL SUCCINATE 31696516888 Active Robbie Busby MD Active VENLAFAXINE HCL ER 150 MG [id number]-ADT Take one by mouth daily VENLAFAXINE HCL 75747522415 Active Robbie Busby MD Active LIPITOR 40 MG TABS Take one by mouth daily ATORVASTATIN CALCIUM 79115153733 Active Robbie Busby MD Active ISOSORBIDE DINITRATE 30 MG TABS Take one by mouth daily ISOSORBIDE DINITRATE 30 MG TABS 827390 ISOSORBIDE DINITRATE Inactive NORVASC 10 MG TAB 1 tablet by mouth daily NORVASC 10 MG TAB 148191 AMLODIPINE BESYLATE Inactive AZITHROMYCIN 250 MG ORAL TABS 2 tablets PO today---then, 1 tablet PO daily x 4 more days (and 1 optional refill) AZITHROMYCIN 250 MG ORAL TABS 1861483 AZITHROMYCIN Inactive CHERATUSSIN AC 100-10 MG/5ML ORAL SOLN 7.5 mL PO q 4-6 hrs PRN cough CHERATUSSIN AC 100-10 MG/5ML ORAL SOLN 303611 GUAIFENESIN- CODEINE Inactive VIIBRYD 40 MG TABS take 1 tab po qday for depression. VIIBRYD 40 MG TABS VILAZODONE HCL Inactive HYDRALAZINE HCL 25 MG TABS 1 tablet by mouth tid for hypertension HYDRALAZINE HCL 25 MG TABS 132169 HYDRALAZINE HCL Inactive SPIRONOLACTONE 50 MG TABS 1 tablet by mouth twice a day SPIRONOLACTONE 50 MG TABS 704494 SPIRONOLACTONE Inactive FENOFIBRATE 145 MG TABS Take one by mouth daily FENOFIBRATE 145 MG TABS 979213 FENOFIBRATE Inactive PROTONIX 40 MG SOLR 1 po qday for acid reflux PROTONIX 40 MG SOLR 806114 PANTOPRAZOLE SODIUM Inactive CEFDINIR 300 MG ORAL CAPS Take 1 cap po bid x 10 days CEFDINIR 300 MG ORAL CAPS 499549 CEFDINIR Inactive PREDNISONE 20 MG TAB 1 tablet twice daily for 2 days, then 1 tablet once daily for 2 days PREDNISONE 20 MG TAB 573866 PREDNISONE Inactive NYSTATIN 150263 UNIT/ML M/T SUSP 5mL po QID x 10 days NYSTATIN 737455 UNIT/ML M/T SUSP 578876 NYSTATIN Inactive BETADINE 10 % EXT SOLN wash with solution to treat follicultis BETADINE 10 % EXT SOLN 3095057 POVIDONE-IODINE Inactive TRILEPTAL 150 MG ORAL TABS 1 TAB PO Q HS TRILEPTAL 150 MG ORAL TABS 087131 OXCARBAZEPINE Inactive LAMISIL 125 MG ORAL PACK 1 TAB PO DAILY LAMISIL 125 MG ORAL PACK TERBINAFINE HCL Inactive HYDROCHLOROTHIAZIDE TABS Take one by mouth daily HYDROCHLOROTHIAZIDE TABS HYDROCHLOROTHIAZIDE TABS Inactive HYDROCODONE-ACETAMINOPHEN 5-325 MG TABS 1 tab by mouth BID prn back pain 2013 HYDROCODONE-ACETAMINOPHEN 5-325 MG TABS 861980 HYDROCODONE -ACETAMINOPHEN Inactive HYDRALAZINE HCL 50 MG ORAL TABS TWO BY MOUTH THREE TIMES DAILY HYDRALAZINE HCL 50 MG ORAL TABS 257365 HYDRALAZINE HCL Inactive LEVAQUIN 500 MG TAB 1 tablet by mouth daily for 7 days LEVAQUIN 500 MG TAB 279559 LEVOFLOXACIN Inactive SPIRONOLACTONE 25 MG TAB 4 tablets by mouth daily SPIRONOLACTONE 25 MG TAB 677280 SPIRONOLACTONE Inactive MECLIZINE HCL 25 MG TAB one 4 times a day as needed for dizziness MECLIZINE HCL 25 MG TAB 294752 MECLIZINE HCL Inactive CLONIDINE HCL 0.2 MG ORAL TABS 1 TAB BY MOUTH EVERY 8 HOURS 12/29 CLONIDINE HCL 0.2 MG ORAL TABS 867120 CLONIDINE HCL Inactive CYCLOBENZAPRINE HCL 10 MG TABS 1 tablet by mouth three times daily as needed for muscle spasm/pain for 10 days CYCLOBENZAPRINE HCL 10 MG TABS 927435 CYCLOBENZAPRINE HCL Inactive VITAMIN D3 91343 UNIT CAPS 2 CAPS PO WEEKLY VITAMIN D3 86402 UNIT CAPS CHOLECALCIFEROL Inactive FIORICET 50-300-40 MG ORAL CAPS take 1 tab po qday prn migraines. FIORICET 50-300-40 MG ORAL CAPS 507430 [id number] Inactive FLONASE 50 MCG/ACT SUSP 1 spray each nostril twice daily for allergies and runny nose FLONASE 50 MCG/ACT SUSP 1640571 FLUTICASONE PROPIONATE Inactive LORATADINE 10 MG TABS 1 tablet by mouth daily for congestion and allergies. LORATADINE 10 MG TABS 254022 LORATADINE Inactive NITROSTAT 0.4 MG SUBL PRN NITROSTAT 0.4 MG SUBL 509682 NITROGLYCERIN Inactive ZITHROMAX 250 MG TAB 2 po today, then 1 po q days 2-5 ZITHROMAX 250 MG TAB 0231741 AZITHROMYCIN Inactive TERBINAFINE HCL 250 MG TABS 1 tab po qday for foot infection 2014 TERBINAFINE HCL 250 MG TABS 129259 TERBINAFINE HCL Inactive KEFLEX 500 MG CAP 1 po TID x 10 days KEFLEX 500 MG CAP 669792 CEPHALEXIN Inactive BACTRIM DS 800-160 MG TAB 1 tab by mouth twice daily BACTRIM DS 800-160 MG TAB 214321 TRIMETHOPRIM-SULFAMETHOXAZOLE Inactive PREDNISONE 20 MG TAB take 3 tabs daily for 3 days, 2 tabs daily for 3 days, 1 tab daily for 3 days, 1/2 tab daily for 4 days PREDNISONE 20 MG TAB 801915 PREDNISONE Inactive Advance Directives Directive Description Start [...] AUTO - Chemistry sodium, serum 142 mmol/L 305-012 9543/07/17 carbon dioxide, venous blood 28.2 mmol/L 21.0-32.0 [...] % 11.0-15.0 platelet count 185 THOUSAND/UL 10*3/mm3 422-285 0257/04/14 mean platelet volume 10.9 fL 7.5-12.5 Lab Report: LIPID PANEL, TSH/899, T4, FREE/866 - Chemistry cholesterol, serum 220 mg/dL 021-485 0733/04/14 HDL cholesterol, serum 30 mg/dL > OR=40 triglyceride, serum, fasting 466 mg/dL <150 LDL cholesterol, serum SEE NOTE mg/dL (calc) mg/dL <130 cholesterol/HDL ratio, serum 7.3 (calc) < OR=5.0 Lab Report: MICROALB/CREAT W/RATIO - Chemistry albumin/creatinine ratio, urine < 30 mg/g mg/g{creat} 0-29 Lab Report: MICROALB/CREAT W/RATIO - Lab microalbumin, urine 80 0-19 Lab Report: VITAMIN D, 25-HYDROXY/92830 - Chemistry vitamin D 25-hydroxy, serum 25 ng/mL 30-100 Office Visit: Confusion, dizziness after fall - Basic LDL target level 130 mg/dL Office Visit: Confusion, dizziness after fall - Chemistry HDL cholesterol, serum, target level 40 mg/dL triglyceride, target level 150 mg/dL cholesterol, target level 200 mg/dL Encounters Code Encounter Date Provider Facility CPT-05576 Level 3 Est. Patient 09:00:37 CDT Rober Rodríguez [facility] CPT-59506 Level 3 Est. Patient 16:07:10 CDT Robbie Busby MD [facility] CPT-26679 Level 4 Est. Patient 11:56:16 CDT Erin Garsia [facility] CPT-41535 Level 3 Est. Patient 17:48:02 CDT Robbie Busby MD [facility] CPT-71807 Level 4 Est. Patient 12:00:49 RISK INTERN Rober Rodríguez [facility] CPT-06278 Level 3 Est. Patient 09:16:37 CDT Robbie Busby MD [facility]-41372 Level 3 Est. Patient 19:38:43 CDT Robbie Busby MD [facility] CPT-27164 Level 3 Est. Patient 11:53:38 CDT Robbie Busby MD [facility] CPT-21890 Level 4 Est. Patient 12:52:22 CDT Rober Rodríguez [facility] CPT-23359 Level 4 Est. Patient 22:55:17 CDT Robbie Busby MD [facility] CPT-32441 Level 3 Est. Patient 12:38:24 CDT Desmond Diaz DO [facility] CPT-65055 Level 4 Est. Patient 11:25:03 RISK INTERN Robbie Busby MD [facility] CPT-48284 Level 4 Est. Patient 14:50:10 CDT Robbie Busby MD [facility] CPT-48263 Level 4 Est. Patient 23:30:43 CDT Robbie Busby MD [facility] CPT-02376 Level 4 Est. Patient 10:30:43 CDT Robbie Busby MD [facility] CPT-03600 Level 3 Est. Patient 17:08:12 CDT Alex ALVAREZ [facility] CPT-83407 Level 4 Est. Patient 17:51:38 CDT Robbie Busby MD [facility] CPT-89253 Level 4 Est. Patient 14:00:21 CDT Robbie Busby MD [facility] CPT-86125 Level 4 Est. Patient 12:46:48 CDT Robbie Busby MD [facility] CPT-01566 Level 4 Est. Patient 13:34:33 CDT Robbie Busby MD [facility] CPT-47195 Level 4 Est. Patient 16:58:28 CDT Robbie Busby MD [facility] CPT-95331 Level 3 Est. Patient 19:36:53 CDT Alex Shaw [facility] CPT-47793 Level 3 Est. Patient 12:58:15 CDT Robbie Busby MD [facility] Procedures Code Procedure Name Date Entry Date Standard Description CPT-J1071 Depo Testosterone 200mg 08:24:00 CDT CPT-56226 Abx/Therapy Injection 08:24:00 CDT CPT-99128 Venipuncture Draw Fee 14:39:06 CDT CPT-01985 Ribs unilateral 2V - XRAY USE ONLY 12:10:11 CDT CPT-02752 First Vx - Ix admin for Medicare patients 16:32:53 CDT CPT-97460 Boostrix Intramuscular Suspension 5-2.5-18.5 16:32:53 CDT CPT-04785 TB Skin Test 11:42:28 CDT CPT-73033 Tdap 7yrs or > 11:42:28 CDT CPT-J0696 Rocephin 1000 mg (Ceftriaxone) 17:43:43 RISK INTERN CPT-J1040 Depo Medrol 80 mg (Methyl Prednisolone Acetate) 17:43: 43 RISK INTERN CPT-J1100 Decadron 8mg (Dexamethasone) 17:43:42 RISK INTERN CPT-21926 Abx/Therapy Injection 17:43:42 RISK INTERN CPT-42832 Abx/Therapy Injection 17:43:42 RISK INTERN CPT-J1040 Depo Medrol 80 mg (Methyl Prednisolone Acetate) 09:43: 34 RISK INTERN CPT-J1100 Decadron 8mg (Dexamethasone) 09:43:34 RISK INTERN CPT-J0696 Rocephin 1gm Inj Solr 09:43:34 RISK INTERN CPT-69358 Wound Culture - LAB USE ONLY 14:00:21 CDT CPT-I/D I/D Abscess 09:16:37 CDT CPT-76504 Venipuncture Draw Fee 15:20:23 CDT CPT-13784 Microalbumin - LAB USE ONLY 16:02:19 CDT CPT-78318 CBC - LAB USE ONLY 16:02:19 CDT CPT-42394 Venipuncture Draw Fee 16:02:19 CDT CPT-G0438 Initial Annual Wellness Exam 08:10:28 CDT CPT-39333 Venipuncture Draw Fee 13:07:17 CDT CPT-G0008 Administration of Influenza Virus Vaccine 16:09:59 CDT CPT-58141 Fluzone Quadrivalent Intramuscular Suspension 0.5 ML 16: 09:59 CDT CPT-94725 Spec Collection and Handling Fee 15:05:50 CDT
--- OUTSIDE RECORDS SUMMARY | 2018-04-18 14:47 | XMS REPORT | Clinical Summary ---
Author Author Admin, [facility] Organization [facility] Address Unknown Phone Unavailable Allergies, Adverse [...] MD Esophageal reflux Bronchitis, acute 466.0 Active lAex ALVAREZ Acute bronchitis Seasonal allergies 477.9 Active [...] 1 tab by mouth twice daily TRIMETHOPRIM-SULFAMETHOXAZOLE 34676022186 No Longer Active Robbie Busby MD Active SPIRONOLACTONE 25 MG TAB 4 tablets by mouth daily SPIRONOLACTONE 14613396928 Active Robbie Busby MD Active HYDRALAZINE HCL 50 MG ORAL TABS TWO BY MOUTH THREE TIMES DAILY HYDRALAZINE HCL 92640241829 No Longer Active Jillina Frazell [employer]ING [employer] Active HYDROCODONE-ACETAMINOPHEN 5-325 MG TABS 1 tab by mouth BID prn back pain 2013 HYDROCODONE-ACETAMINOPHEN 17970505961 No Longer Active Jillina Frazell [employer] READING TE[employer]ER Active HYDROCHLOROTHIAZIDE TABS Take one by mouth daily HYDROCHLOROTHIAZIDE TABS 55283305568 No Longer Active Jillina Frazell [employer]ING TE[employer]ER Active LAMISIL 125 MG ORAL PACK 1 TAB PO DAILY TERBINAFINE HCL 78762614719 No Longer Active Jillina Frazell [employer] READING TE[employer]ER Active TRILEPTAL 150 MG ORAL TABS 1 TAB PO Q HS OXCARBAZEPINE 43923559671 No Longer Active Jillina Frazell [employer] Active BETADINE 10 % EXT SOLN wash with 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 POVIDONE-IODINE 47103376285 No Longer Active Jillina Frazell [employer]ING [employer] Active NYSTATIN 170829 UNIT/ML M/T SUSP 5mL po QID x 10 days NYSTATIN 46454443817 No Longer Active Erin Garsia APRN Active PREDNISONE 20 MG TAB 1 tablet twice daily for 2 days, then 1 tablet once daily for 2 days PREDNISONE 87921558939 No Longer Active Robbie Busby MD Active CEFDINIR 300 MG ORAL CAPS Take 1 cap po bid x 10 days CEFDINIR 26640783012 No Longer Active Robbie Busby MD Active AMLODIPINE BESYLATE 10 MG TABS 1 tablet by mouth daily AMLODIPINE BESYLATE 19842505277 Active Robbie Busby MD Active CARVEDILOL 25 MG TABS 1 & 1/2 TAB po BID CARVEDILOL 26667694685 Active Robbie Busby MD Active VITAMIN D3 99934 UNIT CAPS 2 CAPS PO WEEKLY CHOLECALCIFEROL 54095826476 Active Erin Garsia APRN Active NEXIUM 40 MG CPDR 1 cap by mouth daily ESOMEPRAZOLE MAGNESIUM 41527213442 Active Gali Sruthi Active PROTONIX 40 MG SOLR 1 po qday for acid reflux PANTOPRAZOLE SODIUM 67378170577 No Longer Active Gali Torresjuan carlos Active KEFLEX 500 MG CAP 1 po TID x 10 days CEPHALEXIN 68452840604 No Longer Active Robbie Busby MD Active FIORICET 50-300-40 MG ORAL CAPS take 1 tab po qday prn migraines. [id number] 62599764908 Active Robbie Busby MD Active TOPIRAMATE 50 MG ORAL TABS take 1 tab po BID for migraines. TOPIRAMATE 32111236683 Active Robbie Busby MD Active MECLIZINE HCL 25 MG TAB one 4 times a day as needed for dizziness MECLIZINE HCL 11923829383 Active Robbie Busby MD Active TEMAZEPAM 15 MG ORAL CAPS 1 TAB PO Q HS TEMAZEPAM 37997094281 Active Robbie Busby MD Active ALPRAZOLAM 2 MG ORAL TABS 1 TAB PO BID ALPRAZOLAM 14824622146 Active Robbie Busby MD Active FENOFIBRATE 145 MG TABS Take one by mouth daily FENOFIBRATE 39257148214 No Longer Active Robbie Busby MD Active SPIRONOLACTONE 50 MG TABS 1 tablet by mouth twice a day SPIRONOLACTONE 46839740936 No Longer Active Robbie Busby MD Active HYDRALAZINE HCL 25 MG TABS 1 tablet by mouth tid for hypertension HYDRALAZINE HCL 64347148081 No Longer Active Robbie Busby MD Active VIIBRYD 40 MG TABS take 1 tab po qday for depression. VILAZODONE HCL 12754042870 No Longer Active Robbie Busby MD Active TERBINAFINE HCL 250 MG TABS 1 tab po qday for foot infection 2014 TERBINAFINE HCL 89713602004 No Longer Active Robbie Busby MD Active GABAPENTIN 300 MG CAPS 1 po q hs for nerve pain GABAPENTIN 88082833525 Active Robbie Busby MD Active FLONASE 50 MCG/ACT SUSP 1 spray each nostril twice daily for allergies and runny nose FLUTICASONE PROPIONATE 32368048648 Active Robbie Busby MD Active CHERATUSSIN AC 100-10 MG/5ML ORAL SOLN 7.5 mL PO q 4-6 hrs PRN cough GUAIFENESIN-CODEINE 92343695975 No Longer Active Robbie Busby MD Active AZITHROMYCIN 250 MG ORAL TABS 2 tablets PO today---then, 1 tablet PO daily x 4 more days (and 1 optional refill) AZITHROMYCIN 22480012330 No Longer Active Robbie Busby MD Active CLONIDINE HCL 0.2 MG ORAL TABS 1 TAB BY MOUTH EVERY 8 HOURS CLONIDINE HCL 83872976412 Active Robbie Busby MD Active NORVASC 10 MG TAB 1 tablet by mouth daily AMLODIPINE BESYLATE 65326782698 No Longer Active Alex ALVAREZ Active IMDUR 60 MG TAB CR take 1 tab po qday for blood pressure ISOSORBIDE MONONITRATE Active Robbie Busby MD Active ISOSORBIDE DINITRATE 30 MG TABS Take one by mouth daily ISOSORBIDE DINITRATE 44666218526 No Longer Active Robbie Busby MD Active VIIBRYD 40 MG TABS 1 TA B PO DAILY VILAZODONE HCL 18714429801 Active Robbie Busby MD Active LORATADINE 10 MG TABS 1 tablet by mouth daily for congestion and allergies. LORATADINE 43263563538 Active Robbie Busyb MD Active ZITHROMAX 250 MG TAB 2 po today, then 1 po q days 2-5 AZITHROMYCIN 37966938695 No Longer Active Robbie Busby MD Active [id number] 0.3 MG/24HR PTWK apply 2 patches q week for HTN CLONIDINE HCL 73085820066 Active Robbie Busby MD Active NITROSTAT 0.4 MG SUBL PRN NITROGLYCERIN 89008868789 Active Robbie Busby MD Active DOXAZOSIN MESYLATE 4 MG TABS Take one by mouth daily DOXAZOSIN MESYLATE 68759642515 Active Robbie Busby MD Active TOPROL XL 200 MG [id number] Take one by mouth daily METOPROLOL SUCCINATE 90807354554 Active Robbie Busby MD Active VENLAFAXINE HCL ER 150 MG [id number] Take one by mouth daily VENLAFAXINE HCL 62339994426 Active Robbie Busby MD Active LIPITOR 40 MG TABS Take one by mouth daily ATORVASTATIN CALCIUM 65796298399 Active Robbie Busby MD Active ISOSORBIDE DINITRATE 30 MG TABS Take one by mouth daily ISOSORBIDE DINITRATE 30 MG TABS 268342 ISOSORBIDE DINITRATE Inactive NORVASC 10 MG TAB 1 tablet by mouth daily NORVASC 10 MG TAB 898395 AMLODIPINE BESYLATE Inactive AZITHROMYCIN 250 MG ORAL TABS 2 tablets PO today---then, 1 tablet PO daily x 4 more days (and 1 optional refill) AZITHROMYCIN 250 MG ORAL TABS 5344788 AZITHROMYCIN Inactive CHERATUSSIN AC 100-10 MG/5ML ORAL SOLN 7.5 mL PO q 4-6 hrs PRN cough CHERATUSSIN AC 100-10 MG/5ML ORAL SOLN 779148 GUAIFENESIN- CODEINE Inactive VIIBRYD 40 MG TABS take 1 tab po qday for depression. VIIBRYD 40 MG TABS VILAZODONE HCL Inactive HYDRALAZINE HCL 25 MG TABS 1 tablet by mouth tid for hypertension HYDRALAZINE HCL 25 MG TABS 850043 HYDRALAZINE HCL Inactive SPIRONOLACTONE 50 MG TABS 1 tablet by mouth twice a day SPIRONOLACTONE 50 MG TABS 865825 SPIRONOLACTONE Inactive FENOFIBRATE 145 MG TABS Take one by mouth daily FENOFIBRATE 145 MG TABS 856773 FENOFIBRATE Inactive PROTONIX 40 MG SOLR 1 po qday for acid reflux PROTONIX 40 MG SOLR 158244 PANTOPRAZOLE SODIUM Inactive CEFDINIR 300 MG ORAL CAPS Take 1 cap po bid x 10 days CEFDINIR 300 MG ORAL CAPS 894023 CEFDINIR Inactive PREDNISONE 20 MG TAB 1 tablet twice daily for 2 days, then 1 tablet once daily for 2 days PREDNISONE 20 MG TAB 307515 PREDNISONE Inactive NYSTATIN 591186 UNIT/ML M/T SUSP 5mL po QID x 10 days NYSTATIN 829744 UNIT/ML M/T SUSP 808497 NYSTATIN Inactive BETADINE 10 % EXT SOLN wash with solution to treat follicultis BETADINE 10 % EXT SOLN 4301061 POVIDONE-IODINE Inactive TRILEPTAL 150 MG ORAL TABS 1 TAB PO Q HS TRILEPTAL 150 MG ORAL TABS 883579 OXCARBAZEPINE Inactive LAMISIL 125 MG ORAL PACK 1 TAB PO DAILY LAMISIL 125 MG ORAL PACK TERBINAFINE HCL Inactive HYDROCHLOROTHIAZIDE TABS Take one by mouth daily HYDROCHLOROTHIAZIDE TABS HYDROCHLOROTHIAZIDE TABS Inactive HYDROCODONE-ACETAMINOPHEN 5-325 MG TABS 1 tab by mouth BID prn back pain 2013 HYDROCODONE-ACETAMINOPHEN 5-325 MG TABS 431274 HYDROCODONE -ACETAMINOPHEN Inactive HYDRALAZINE HCL 50 MG ORAL TABS TWO BY MOUTH THREE TIMES DAILY HYDRALAZINE HCL 50 MG ORAL TABS 516114 HYDRALAZINE HCL Inactive ZITHROMAX 250 MG TAB 2 po today, then 1 po q days 2-5 ZITHROMAX 250 MG TAB 6711994 AZITHROMYCIN Inactive TERBINAFINE HCL 250 MG TABS 1 tab po qday for foot infection 2014 TERBINAFINE HCL 250 MG TABS 682634 TERBINAFINE HCL Inactive KEFLEX 500 MG CAP 1 po TID x 10 days KEFLEX 500 MG CAP 432589 CEPHALEXIN Inactive BACTRIM DS 800-160 MG TAB 1 tab by mouth twice daily BACTRIM DS 800-160 MG TAB 274789 TRIMETHOPRIM-SULFAMETHOXAZOLE Inactive Advance Directives Directive Description Start [...] Acid - Chemistry sodium, serum 139 mmol/L 709-705 6538/04/22 carbon dioxide, venous blood 29.4 mmol/L [...] to Follow Negative Lab Report: VITAMIN D, 25-HYDROXY/10674 - Chemistry vitamin D 25-hydroxy, serum 23 ng/mL 30-100 Encounters Code Encounter Date Provider Facility CPT-38133 Level 3 Est. Patient 09:16:37 CDT Robbie Busby MD [facility] CPT-14231 Level 3 Est. Patient 19:38:43 CDT Robbie Busby MD [facility] CPT-92710 Level 3 Est. Patient 11:53:38 CDT Robbie Busby MD [facility] CPT-67139 Level 4 Est. Patient 12:52:22 CDT Rober Rodríguez APRN [facility] CPT-84751 Level 4 Est. Patient 22:55:17 CDT Robbie Busby MD [facility] CPT-12051 Level 3 Est. Patient 12:38:24 CDT Desmond Diaz DO [facility] CPT-68643 Level 4 Est. Patient 11:25:03 REHAB THERAPIST Robbie Busby MD [facility] CPT-40880 Level 4 Est. Patient 14:50:10 CDT Robbie Busby MD [facility] CPT-89187 Level 4 Est. Patient 23:30:43 CDT Robbie Busby MD [facility] CPT-64549 Level 4 Est. Patient 10:30:43 CDT Robbie Busby MD [facility] CPT-35211 Level 3 Est. Patient 17:08:12 CDT Alex ALVAREZ [facility] CPT-32655 Level 4 Est. Patient 17:51:38 CDT Robbie Busby MD [facility] CPT-74469 Level 4 Est. Patient 14:00:21 CDT Robbie Busby MD [facility] CPT-56282 Level 4 Est. Patient 12:46:48 CDT Robbie Busby MD [facility] CPT-49133 Level 4 Est. Patient 13:34:33 CDT Robbie Busby MD [facility] CPT-71704 Level 4 Est. Patient 16:58:28 CDT Robbie Busby MD [facility] CPT-59056 Level 3 Est. Patient 19:36:53 CDT Alex Shaw [facility] CPT-33083 Level 3 Est. Patient 12:58:15 CDT Robbie Busby MD [facility] Procedures Code Procedure Name Date Entry Date Standard Description CPT-12233 Wound Culture - LAB USE ONLY 14:00:21 CDT CPT-I/D I/D Abscess 09:16:37 CDT CPT-63812 Venipuncture Draw Fee 15:20:23 CDT CPT-05544 Microalbumin - LAB USE ONLY 16:02:19 CDT CPT-88951 CBC - LAB USE ONLY 16:02:19 CDT CPT-64864 Venipuncture Draw Fee 16:02:19 CDT CPT-G0438 Initial Annual Wellness Exam 08:10:28 CDT CPT-36141 Venipuncture Draw Fee 13:07:17 CDT CPT-G0008 Administration of Influenza Virus Vaccine 16:09:59 CDT CPT-30400 Fluzone Quadrivalent Intramuscular Suspension 0.5 ML 16: 09:59 CDT CPT-67985 Spec Collection and Handling Fee 15:05:50 CDT
--- OUTSIDE RECORDS SUMMARY | 2018-04-18 14:48 | XMS REPORT | Clinical Summary ---
Author Author Admin, [facility] Organization [employer] Address Unknown Phone Unavailable Allergies, Adverse Reactions, [...] unspecified sites URI 465.9 Active Rober Rodríguez [employer] HAND Acute upper respiratory infections of unspecified site [...] 2 weeks for low testosterone TESTOSTERONE CYPIONATE 56415016564 Active Zulema Blank LPN Active CYCLOBENZAPRINE HCL 10 MG ORAL TABS 1 po TID PRN muscle spasm/pain for 10 days CYCLOBENZAPRINE HCL 23720520387 Active JONATHAN Moncada Active GUAIFENESIN 600 MG [id number] 1 tab po q am GUAIFENESIN 70160337322 Active Rober Rodríguez [employer] Active FLUTICASONE PROPIONATE 50 MCG/ACT SUSP 2 sprays per nostril bid for 1 week, then 1 spray bid FLUTICASONE PROPIONATE 47846315512 Active Jishantel Rodríguez APRN Active HYDRALAZINE HCL 25 MG ORAL TABS Take 1 tab BID. HYDRALAZINE HCL 56736341587 Active Rober Rodríguez APRN Active VITAMIN D3 72450 UNIT ORAL TABS 2 po weekly CHOLECALCIFEROL 20303015646 Active JONATHAN Moncada Active OXYCODONE HCL ER 10 MG ORAL T12A 1 tab po 3 times qd. OXYCODONE HCL 68902112472 Active Robbie Busby MD Active NITROSTAT 0.4 MG SUBL PRN NITROGLYCERIN 44387361874 No Longer Active Robbie Busby MD Active LORATADINE 10 MG TABS 1 tablet by mouth daily for congestion and allergies. LORATADINE 42044105013 No Longer Active Robbie Busby MD Active FLONASE 50 MCG/ACT SUSP 1 spray each nostril twice daily for allergies and runny nose FLUTICASONE PROPIONATE 89702097143 No Longer Active Robbie Busby MD Active FIORICET 50-300-40 MG ORAL CAPS take 1 tab po qday prn migraines. [id number] 84285528766 No Longer Active Robbie Busby MD Active VITAMIN D3 45122 UNIT CAPS 2 CAPS PO WEEKLY CHOLECALCIFEROL 07263901420 No Longer Active Robbie Busby MD Active CYCLOBENZAPRINE HCL 10 MG TABS 1 tablet by mouth three times daily as needed for muscle spasm/pain for 10 days CYCLOBENZAPRINE HCL 95345206095 No Longer Active Robbie Busby MD Active PREDNISONE 20 MG TAB take 3 tabs daily for 3 days, 2 tabs daily for 3 days, 1 tab daily for 3 days, 1/2 tab daily for 4 days PREDNISONE 89407174764 No Longer Active Erin Garsia APRN Active CLONIDINE HCL 0.2 MG ORAL TABS 1 TAB BY MOUTH EVERY 8 HOURS 12/29 CLONIDINE HCL 11104767992 No Longer Active Erin Garsia APRN Active MECLIZINE HCL 25 MG TAB one 4 times a day as needed for dizziness MECLIZINE HCL 82655960481 No Longer Active Erin Garsia [employer] Active SPIRONOLACTONE 25 MG TAB 4 tablets by mouth daily SPIRONOLACTONE 91058714964 No Longer Active Erin Garsia APRN Active LEVAQUIN 500 MG TAB 1 tablet by mouth daily for 7 days LEVOFLOXACIN 83233571588 No Longer Active Erin Garsia APRN Active BACTRIM DS 800-160 MG TAB 1 tab by mouth twice daily TRIMETHOPRIM-SULFAMETHOXAZOLE 56554864017 No Longer Active Robbie Busby MD Active HYDRALAZINE HCL 50 MG ORAL TABS TWO BY MOUTH THREE TIMES DAILY HYDRALAZINE HCL 29731438900 No Longer Active Jillina Frazell [employer] Active HYDROCODONE-ACETAMINOPHEN 5-325 MG TABS 1 tab by mouth BID prn back pain 2013 HYDROCODONE-ACETAMINOPHEN 04056967240 No Longer Active Jillina Frazell [employer] Active HYDROCHLOROTHIAZIDE TABS Take one by mouth daily HYDROCHLOROTHIAZIDE TABS 18189897035 No Longer Active Jillina Frazell [employer] Active LAMISIL 125 MG ORAL PACK 1 TAB PO DAILY TERBINAFINE HCL 65417099557 No Longer Active Jillina Frazell [employer] Active TRILEPTAL 150 MG ORAL TABS 1 TAB PO Q HS OXCARBAZEPINE 68948521750 No Longer Active Jillina Frazell [employer] Active BETADINE 10 % EXT SOLN wash with solution to treat follicultis POVIDONE-IODINE 29562976191 No Longer Active Jillina Frazell [employer] Active NYSTATIN 158398 UNIT/ML M/T SUSP 5mL po QID x 10 days NYSTATIN 01685095929 No Longer Active Erin Garsia APRN Active PREDNISONE 20 MG TAB 1 tablet twice daily for 2 days, then 1 tablet once daily for 2 days PREDNISONE 18830213681 No Longer Active Robbie Busby MD Active CEFDINIR 300 MG ORAL CAPS Take 1 cap po bid x 10 days CEFDINIR 79063136186 No Longer Active Robbie Busby MD Active AMLODIPINE BESYLATE 10 MG TABS 1 tablet by mouth daily AMLODIPINE BESYLATE 65800547181 Active Robbie Busby MD Active CARVEDILOL 25 MG TABS 1 & 1/2 TAB po BID CARVEDILOL 53348976746 Active Robbie Busby MD Active NEXIUM 40 MG CPDR 1 cap by mouth daily ESOMEPRAZOLE MAGNESIUM 05627952025 Active Robbie Busby MD Active PROTONIX 40 MG SOLR 1 po qday for acid reflux PANTOPRAZOLE SODIUM 61710173747 No Longer Active Gali Raida Active KEFLEX 500 MG CAP 1 po TID x 10 days CEPHALEXIN 74836968234 No Longer Active Robbie Busby MD Active TOPIRAMATE 50 MG ORAL TABS take 1 tab po BID for migraines. TOPIRAMATE 13698538765 Active Robbie Busby MD Active TEMAZEPAM 15 MG ORAL CAPS 1 TAB PO Q HS TEMAZEPAM 27487555431 Active Robbie Busby MD Active ALPRAZOLAM 2 MG ORAL TABS 1 TAB PO BID ALPRAZOLAM 56838625576 Active Robbie Busby MD Active FENOFIBRATE 145 MG TABS Take one by mouth daily FENOFIBRATE 51794098969 No Longer Active Robbie Busby MD Active SPIRONOLACTONE 50 MG TABS 1 tablet by mouth twice a day SPIRONOLACTONE 56467701958 No Longer Active Robbie Busby MD Active HYDRALAZINE HCL 25 MG TABS 1 tablet by mouth tid for hypertension HYDRALAZINE HCL 70125943297 No Longer Active Robbie Busby MD Active VIIBRYD 40 MG TABS take 1 tab po qday for depression. VILAZODONE HCL 58796995321 No Longer Active Robbie Busby MD Active TERBINAFINE HCL 250 MG TABS 1 tab po qday for foot infection 2014 TERBINAFINE HCL 79006088030 No Longer Active Robbie Busby MD Active GABAPENTIN 300 MG CAPS 1 po q hs for nerve pain GABAPENTIN 83410634657 Active Robbie Busby MD Active CHERATUSSIN AC 100-10 MG/5ML ORAL SOLN 7.5 mL PO q 4-6 hrs PRN cough GUAIFENESIN-CODEINE 32892085622 No Longer Active Robbie Busby MD Active AZITHROMYCIN 250 MG ORAL TABS 2 tablets PO today---then, 1 tablet PO daily x 4 more days (and 1 optional refill) AZITHROMYCIN 89120997713 No Longer Active Robbie Busby MD Active NORVASC 10 MG TAB 1 tablet by mouth daily AMLODIPINE BESYLATE 50372762658 No Longer Active Alex ALVAREZ Active IMDUR 60 MG TAB CR take 1 tab po qday for blood pressure ISOSORBIDE MONONITRATE Active Robbie Busby MD Active ISOSORBIDE DINITRATE 30 MG TABS Take one by mouth daily ISOSORBIDE DINITRATE 37750331792 No Longer Active Robbie Busby MD Active VIIBRYD 40 MG TABS 1 TA B PO DAILY VILAZODONE HCL 14639661823 Active Robbie Busby MD Active ZITHROMAX 250 MG TAB 2 po today, then 1 po q days 2-5 AZITHROMYCIN 67102400262 No Longer Active Robbie Busby MD Active [id number]-[id number] 0.3 MG/24HR PTWK apply 2 patches q week for HTN CLONIDINE HCL 50436233690 Active Robbie Busby MD Active DOXAZOSIN MESYLATE 4 MG TABS Take one by mouth daily DOXAZOSIN MESYLATE 80348877568 Active Robbie Busby MD Active TOPROL XL 200 MG [id number] Take one by mouth daily METOPROLOL SUCCINATE 84568274430 Active Robbie Busby MD Active VENLAFAXINE HCL ER 150 MG [id number] Take one by mouth daily VENLAFAXINE HCL 04440892321 Active Robbie Busby MD Active LIPITOR 40 MG TABS Take one by mouth daily ATORVASTATIN CALCIUM 32987124473 Active Robbie Busby MD Active ISOSORBIDE DINITRATE 30 MG TABS Take one by mouth daily ISOSORBIDE DINITRATE 30 MG TABS 084281 ISOSORBIDE DINITRATE Inactive NORVASC 10 MG TAB 1 tablet by mouth daily NORVASC 10 MG TAB 438960 AMLODIPINE BESYLATE Inactive AZITHROMYCIN 250 MG ORAL TABS 2 tablets PO today---then, 1 tablet PO daily x 4 more days (and 1 optional refill) AZITHROMYCIN 250 MG ORAL TABS 1276436 AZITHROMYCIN Inactive CHERATUSSIN AC 100-10 MG/5ML ORAL SOLN 7.5 mL PO q 4-6 hrs PRN cough CHERATUSSIN AC 100-10 MG/5ML ORAL SOLN 335790 GUAIFENESIN- CODEINE Inactive VIIBRYD 40 MG TABS take 1 tab po qday for depression. VIIBRYD 40 MG TABS VILAZODONE HCL Inactive HYDRALAZINE HCL 25 MG TABS 1 tablet by mouth tid for hypertension HYDRALAZINE HCL 25 MG TABS 497296 HYDRALAZINE HCL Inactive SPIRONOLACTONE 50 MG TABS 1 tablet by mouth twice a day SPIRONOLACTONE 50 MG TABS 841585 SPIRONOLACTONE Inactive FENOFIBRATE 145 MG TABS Take one by mouth daily FENOFIBRATE 145 MG TABS 886975 FENOFIBRATE Inactive PROTONIX 40 MG SOLR 1 po qday for acid reflux PROTONIX 40 MG SOLR 395303 PANTOPRAZOLE SODIUM Inactive CEFDINIR 300 MG ORAL CAPS Take 1 cap po bid x 10 days CEFDINIR 300 MG ORAL CAPS 817303 CEFDINIR Inactive PREDNISONE 20 MG TAB 1 tablet twice daily for 2 days, then 1 tablet once daily for 2 days PREDNISONE 20 MG TAB 371614 PREDNISONE Inactive NYSTATIN 325298 UNIT/ML M/T SUSP 5mL po QID x 10 days NYSTATIN 866557 UNIT/ML M/T SUSP 816045 NYSTATIN Inactive BETADINE 10 % EXT SOLN wash with solution to treat follicultis BETADINE 10 % EXT SOLN 6827872 POVIDONE-IODINE Inactive TRILEPTAL 150 MG ORAL TABS 1 TAB PO Q HS TRILEPTAL 150 MG ORAL TABS 689862 OXCARBAZEPINE Inactive LAMISIL 125 MG ORAL PACK 1 TAB PO DAILY LAMISIL 125 MG ORAL PACK TERBINAFINE HCL Inactive HYDROCHLOROTHIAZIDE TABS Take one by mouth daily HYDROCHLOROTHIAZIDE TABS HYDROCHLOROTHIAZIDE TABS Inactive HYDROCODONE-ACETAMINOPHEN 5-325 MG TABS 1 tab by mouth BID prn back pain 2013 HYDROCODONE-ACETAMINOPHEN 5-325 MG TABS 208136 HYDROCODONE -ACETAMINOPHEN Inactive HYDRALAZINE HCL 50 MG ORAL TABS TWO BY MOUTH THREE TIMES DAILY HYDRALAZINE HCL 50 MG ORAL TABS 739843 HYDRALAZINE HCL Inactive LEVAQUIN 500 MG TAB 1 tablet by mouth daily for 7 days LEVAQUIN 500 MG TAB 812686 LEVOFLOXACIN Inactive SPIRONOLACTONE 25 MG TAB 4 tablets by mouth daily SPIRONOLACTONE 25 MG TAB 614667 SPIRONOLACTONE Inactive MECLIZINE HCL 25 MG TAB one 4 times a day as needed for dizziness MECLIZINE HCL 25 MG TAB 750098 MECLIZINE HCL Inactive CLONIDINE HCL 0.2 MG ORAL TABS 1 TAB BY MOUTH EVERY 8 HOURS 12/29 CLONIDINE HCL 0.2 MG ORAL TABS 878925 CLONIDINE HCL Inactive CYCLOBENZAPRINE HCL 10 MG TABS 1 tablet by mouth three times daily as needed for muscle spasm/pain for 10 days CYCLOBENZAPRINE HCL 10 MG TABS 570404 CYCLOBENZAPRINE HCL Inactive VITAMIN D3 63149 UNIT CAPS 2 CAPS PO WEEKLY VITAMIN D3 84305 UNIT CAPS CHOLECALCIFEROL Inactive FIORICET 50-300-40 MG ORAL CAPS take 1 tab po qday prn migraines. FIORICET 50-300-40 MG ORAL CAPS 045987 [id number] Inactive FLONASE 50 MCG/ACT SUSP 1 spray each nostril twice daily for allergies and runny nose FLONASE 50 MCG/ACT SUSP 8151617 FLUTICASONE PROPIONATE Inactive LORATADINE 10 MG TABS 1 tablet by mouth daily for congestion and allergies. LORATADINE 10 MG TABS 526052 LORATADINE Inactive NITROSTAT 0.4 MG SUBL PRN NITROSTAT 0.4 MG SUBL 048151 NITROGLYCERIN Inactive ZITHROMAX 250 MG TAB 2 po today, then 1 po q days 2-5 ZITHROMAX 250 MG TAB 6769206 AZITHROMYCIN Inactive TERBINAFINE HCL 250 MG TABS 1 tab po qday for foot infection 2014 TERBINAFINE HCL 250 MG TABS 700684 TERBINAFINE HCL Inactive KEFLEX 500 MG CAP 1 po TID x 10 days KEFLEX 500 MG CAP 941410 CEPHALEXIN Inactive BACTRIM DS 800-160 MG TAB 1 tab by mouth twice daily BACTRIM DS 800-160 MG TAB 707128 TRIMETHOPRIM-SULFAMETHOXAZOLE Inactive PREDNISONE 20 MG TAB take 3 tabs daily for 3 days, 2 tabs daily for 3 days, 1 tab daily for 3 days, 1/2 tab daily for 4 days PREDNISONE 20 MG TAB 739778 PREDNISONE Inactive Advance Directives Directive Description Start [...] AUTO - Chemistry sodium, serum 142 mmol/L 497-749 0243/07/17 carbon dioxide, venous blood 28.2 mmol/L 21.0-32.0 [...] % 11.0-15.0 platelet count 185 THOUSAND/UL 10*3/mm3 017-222 2359/04/14 mean platelet volume 10.9 fL 7.5-12.5 Lab Report: LIPID PANEL, TSH/899, T4, FREE/866 - Chemistry cholesterol, serum 220 mg/dL 066-543 4486/04/14 HDL cholesterol, serum 30 mg/dL > OR=40 triglyceride, serum, fasting 466 mg/dL <150 LDL cholesterol, serum SEE NOTE mg/dL (calc) mg/dL <130 cholesterol/HDL ratio, serum 7.3 (calc) < OR=5.0 Lab Report: MICROALB/CREAT W/RATIO - Chemistry albumin/creatinine ratio, urine < 30 mg/g mg/g{creat} 0-29 Lab Report: MICROALB/CREAT W/RATIO - Lab microalbumin, urine 80 0-19 Lab Report: VITAMIN D, 25-HYDROXY/23208 - Chemistry vitamin D 25-hydroxy, serum 25 ng/mL 30-100 Office Visit: Confusion, dizziness after fall - Basic LDL target level 130 mg/dL Office Visit: Confusion, dizziness after fall - Chemistry HDL cholesterol, serum, target level 40 mg/dL triglyceride, target level 150 mg/dL cholesterol, target level 200 mg/dL Encounters Code Encounter Date Provider Facility CPT-90947 Level 3 Est. Patient 09:00:37 CDT Rober Rodríguez [facility] [place] CPT-95770 Level 3 Est. Patient 16:07:10 CDT Robbie Busby MD [facility] CPT-83873 Level 4 Est. Patient 11:56:16 CDT Erin Garsia [facility] [place] CPT-23664 Level 3 Est. Patient 17:48:02 CDT Robbie Busby MD [facility] CPT-60453 Level 4 Est. Patient 12:00:49 MARKET ANALYST Rober Rodríguez [facility] [place] CPT-04088 Level 3 Est. Patient 09:16:37 CDT Robbie Busby MD [facility] CPT-11186 Level 3 Est. Patient 19:38:43 CDT Robbie Busby MD [facility] CPT-88843 Level 3 Est. Patient 11:53:38 CDT Robbie Busby MD [facility] CPT-93386 Level 4 Est. Patient 12:52:22 CDT Rober Rodríguez [facility] [place] CPT-26645 Level 4 Est. Patient 22:55:17 CDT Robbie Busby MD [facility] CPT-72832 Level 3 Est. Patient 12:38:24 CDT Desmond Diaz DO [facility] CPT-13989 Level 4 Est. Patient 11:25:03 MARKET ANALYST Robbie Busby MD [facility] CPT-41774 Level 4 Est. Patient 14:50:10 CDT Robbie Busby MD [facility] CPT-53405 Level 4 Est. Patient 23:30:43 CDT Robbie Busby MD [facility] CPT-32417 Level 4 Est. Patient 10:30:43 CDT Robbie Busby MD [facility] CPT-16199 Level 3 Est. Patient 17:08:12 CDT Alex ALVAREZ [facility] CPT-48375 Level 4 Est. Patient 17:51:38 CDT Robbie Busby MD [facility] CPT-17477 Level 4 Est. Patient 14:00:21 CDT Robbie Busby MD [facility] CPT-43609 Level 4 Est. Patient 12:46:48 CDT Robbie Busby MD [facility] CPT-44527 Level 4 Est. Patient 13:34:33 CDT Robbie Busby MD [facility] CPT-40627 Level 4 Est. Patient 16:58:28 CDT Robbie Busby MD [facility] CPT-43886 Level 3 Est. Patient 19:36:53 CDT Alex Shaw [facility] CPT-73606 Level 3 Est. Patient 12:58:15 CDT Robbie Busby MD [facility] Procedures Code Procedure Name Date Entry Date Standard Description CPT-J1071 Depo Testosterone 200mg 08:24:00 CDT CPT-54589 Abx/Therapy Injection 08:24:00 CDT CPT-96483 Venipuncture Draw Fee 14:39:06 CDT CPT-20595 Ribs unilateral 2V - XRAY USE ONLY 12:10:11 CDT CPT-80866 First Vx - Ix admin for Medicare patients 16:32:53 CDT CPT-49582 Boostrix Intramuscular Suspension 5-2.5-18.5 16:32:53 CDT CPT-69254 TB Skin Test 11:42:28 CDT CPT-34448 Tdap 7yrs or > 11:42:28 CDT CPT-J0696 Rocephin 1000 mg (Ceftriaxone) 17:43:43 MARKET ANALYST CPT-J1040 Depo Medrol 80 mg (Methyl Prednisolone Acetate) 17:43: 43 MARKET ANALYST CPT-J1100 Decadron 8mg (Dexamethasone) 17:43:42 MARKET ANALYST CPT-25019 Abx/Therapy Injection 17:43:42 MARKET ANALYST CPT-96722 Abx/Therapy Injection 17:43:42 MARKET ANALYST CPT-J1040 Depo Medrol 80 mg (Methyl Prednisolone Acetate) 09:43: 34 MARKET ANALYST CPT-J1100 Decadron 8mg (Dexamethasone) 09:43:34 MARKET ANALYST CPT-J0696 Rocephin 1gm Inj Solr 09:43:34 MARKET ANALYST CPT-25390 Wound Culture - LAB USE ONLY 14:00:21 CDT CPT-I/D I/D Abscess 09:16:37 CDT CPT-05771 Venipuncture Draw Fee 15:20:23 CDT CPT-95702 Microalbumin - LAB USE ONLY 16:02:19 CDT CPT-77240 CBC - LAB USE ONLY 16:02:19 CDT CPT-89772 Venipuncture Draw Fee 16:02:19 CDT CPT-G0438 Initial Annual Wellness Exam 08:10:28 CDT CPT-41923 Venipuncture Draw Fee 13:07:17 CDT CPT-G0008 Administration of Influenza Virus Vaccine 16:09:59 CDT CPT-97468 Fluzone Quadrivalent Intramuscular Suspension 0.5 ML 16: 09:59 CDT CPT-87889 Spec Collection and Handling Fee 15:05:50 CDT
--- OUTSIDE RECORDS SUMMARY | 2018-04-18 14:51 | XMS REPORT | Clinical Summary ---
Author Author Admin, [facility] Organization [facility] Address Unknown [...] 1 tab by mouth twice daily TRIMETHOPRIM-SULFAMETHOXAZOLE 83129740676 Active Robbie Busby MD Active SPIRONOLACTONE 25 MG TAB 4 tablets by mouth daily SPIRONOLACTONE 56877707603 Active Robbie Busby MD Active HYDRALAZINE HCL 50 MG ORAL TABS TWO BY MOUTH THREE TIMES DAILY HYDRALAZINE HCL 85327476012 No Longer Active Jillina Frazell DOOR OPENER Active HYDROCODONE-ACETAMINOPHEN 5-325 MG TABS 1 tab by mouth BID prn back pain 2013 HYDROCODONE-ACETAMINOPHEN 24824032719 No Longer Active Jillina Frazell DOOR OPENER Active HYDROCHLOROTHIAZIDE TABS Take one by mouth daily HYDROCHLOROTHIAZIDE TABS 46463518661 No Longer Active Jillina Frazell DOOR OPENER Active LAMISIL 125 MG ORAL PACK 1 TAB PO DAILY TERBINAFINE HCL 50288952167 No Longer Active Jillina Frazell DOOR OPENER Active TRILEPTAL 150 MG ORAL TABS 1 TAB PO Q HS OXCARBAZEPINE 16126094779 No Longer Active Jillina Frazell DOOR OPENER Active BETADINE 10 % EXT SOLN wash with solution to treat follicultis POVIDONE-IODINE 09369580172 No Longer Active Jillina Frazell DOOR OPENER Active NYSTATIN 732868 UNIT/ML M/T SUSP 5mL po QID x 10 days NYSTATIN 11275783077 No Longer Active Erin Garsia APRN Active PREDNISONE 20 MG TAB 1 tablet twice daily for 2 days, then 1 tablet once daily for 2 days PREDNISONE 49468579187 No Longer Active Robbie Busby MD Active CEFDINIR 300 MG ORAL CAPS Take 1 cap po bid x 10 days CEFDINIR 62057872789 No Longer Active Robbie Busby MD Active AMLODIPINE BESYLATE 10 MG TABS 1 tablet by mouth daily AMLODIPINE BESYLATE 21909082534 Active Robbie Busby MD Active CARVEDILOL 25 MG TABS 1 & 1/2 TAB po BID CARVEDILOL 91415506061 Active Robbie Busby MD Active VITAMIN D3 75720 UNIT CAPS 2 CAPS PO WEEKLY CHOLECALCIFEROL 63521191557 Active Erin Ady DOOR OPENER Active NEXIUM 40 MG CPDR 1 cap by mouth daily ESOMEPRAZOLE MAGNESIUM 96776693991 Active Gali Negro Active PROTONIX 40 MG SOLR 1 po qday for acid reflux PANTOPRAZOLE SODIUM 07423722657 No Longer Active Gali Rajuan carlos Active KEFLEX 500 MG CAP 1 po TID x 10 days CEPHALEXIN 16723960070 No Longer Active Robbie Busby MD Active FIORICET 50-300-40 MG ORAL CAPS take 1 tab po qday prn migraines. [id number] 66892921436 Active Robbie Busby MD Active TOPIRAMATE 50 MG ORAL TABS take 1 tab po BID for migraines. TOPIRAMATE 20492828305 Active Robbie Busby MD Active MECLIZINE HCL 25 MG TAB one 4 times a day as needed for dizziness MECLIZINE HCL 73844237163 Active Robbie Busby MD Active TEMAZEPAM 15 MG ORAL CAPS 1 TAB PO Q HS TEMAZEPAM 99374805652 Active Robbie Busby MD Active ALPRAZOLAM 2 MG ORAL TABS 1 TAB PO BID ALPRAZOLAM 72397267482 Active Robbie Busby MD Active FENOFIBRATE 145 MG TABS Take one by mouth daily FENOFIBRATE 44542454841 No Longer Active Robbie Busby MD Active SPIRONOLACTONE 50 MG TABS 1 tablet by mouth twice a day SPIRONOLACTONE 03924199947 No Longer Active Robbie Busby MD Active HYDRALAZINE HCL 25 MG TABS 1 tablet by mouth tid for hypertension HYDRALAZINE HCL 17446582496 No Longer Active Robbie Busby MD Active VIIBRYD 40 MG TABS take 1 tab po qday for depression. VILAZODONE HCL 16039295882 No Longer Active Robbie Busby MD Active TERBINAFINE HCL 250 MG TABS 1 tab po qday for foot infection 2014 TERBINAFINE HCL 78483296007 No Longer Active Robbie Busby MD Active GABAPENTIN 300 MG CAPS 1 po q hs for nerve pain GABAPENTIN 09105297800 Active Robbie Busby MD Active FLONASE 50 MCG/ACT SUSP 1 spray each nostril twice daily for allergies and runny nose FLUTICASONE PROPIONATE 48760819514 Active Robbie Busby MD Active CHERATUSSIN AC 100-10 MG/5ML ORAL SOLN 7.5 mL PO q 4-6 hrs PRN cough GUAIFENESIN-CODEINE 92940354699 No Longer Active Robbie Busby MD Active AZITHROMYCIN 250 MG ORAL TABS 2 tablets PO today---then, 1 tablet PO daily x 4 more days (and 1 optional refill) AZITHROMYCIN 97312612687 No Longer Active Robbie Busby MD Active CLONIDINE HCL 0.2 MG ORAL TABS 1 TAB BY MOUTH EVERY 8 HOURS CLONIDINE HCL 57149790809 Active Robbie Busby MD Active NORVASC 10 MG TAB 1 tablet by mouth daily AMLODIPINE BESYLATE 24759514441 No Longer Active Alex ALVAREZ Active IMDUR 60 MG TAB CR take 1 tab po qday for blood pressure ISOSORBIDE MONONITRATE Active Robbie Busby MD Active ISOSORBIDE DINITRATE 30 MG TABS Take one by mouth daily ISOSORBIDE DINITRATE 14809307695 No Longer Active Robbie Busby MD Active VIIBRYD 40 MG TABS 1 TA B PO DAILY VILAZODONE HCL 73780877756 Active Robbie Busby MD Active LORATADINE 10 MG TABS 1 tablet by mouth daily for congestion and allergies. LORATADINE 46292284677 Active Robbie Busby MD Active ZITHROMAX 250 MG TAB 2 po today, then 1 po q days 2-5 AZITHROMYCIN 27205591324 No Longer Active Robbie Busby MD Active [id number]-4 0.3 MG/24HR PTWK apply 2 patches q week for HTN CLONIDINE HCL 92119264951 Active Robbie Busby MD Active NITROSTAT 0.4 MG SUBL PRN NITROGLYCERIN 51407716094 Active Robbie Busby MD Active DOXAZOSIN MESYLATE 4 MG TABS Take one by mouth daily DOXAZOSIN MESYLATE 21501627564 Active Robbie Busby MD Active TOPROL XL 200 MG [id number] Take one by mouth daily METOPROLOL SUCCINATE 60714758762 Active Robbie Busby MD Active VENLAFAXINE HCL ER 150 MG [id number] Take one by mouth daily VENLAFAXINE HCL 81084764636 Active Robbie Busby MD Active LIPITOR 40 MG TABS Take one by mouth daily ATORVASTATIN CALCIUM 46844445586 Active Robbie Busby MD Active ISOSORBIDE DINITRATE 30 MG TABS Take one by mouth daily ISOSORBIDE DINITRATE 30 MG TABS 266703 ISOSORBIDE DINITRATE Inactive NORVASC 10 MG TAB 1 tablet by mouth daily NORVASC 10 MG TAB 455871 AMLODIPINE BESYLATE Inactive AZITHROMYCIN 250 MG ORAL TABS 2 tablets PO today---then, 1 tablet PO daily x 4 more days (and 1 optional refill) AZITHROMYCIN 250 MG ORAL TABS 4339245 AZITHROMYCIN Inactive CHERATUSSIN AC 100-10 MG/5ML ORAL SOLN 7.5 mL PO q 4-6 hrs PRN cough CHERATUSSIN AC 100-10 MG/5ML ORAL SOLN 592618 GUAIFENESIN- CODEINE Inactive VIIBRYD 40 MG TABS take 1 tab po qday for depression. VIIBRYD 40 MG TABS VILAZODONE HCL Inactive HYDRALAZINE HCL 25 MG TABS 1 tablet by mouth tid for hypertension HYDRALAZINE HCL 25 MG TABS 536457 HYDRALAZINE HCL Inactive SPIRONOLACTONE 50 MG TABS 1 tablet by mouth twice a day SPIRONOLACTONE 50 MG TABS 550403 SPIRONOLACTONE Inactive FENOFIBRATE 145 MG TABS Take one by mouth daily FENOFIBRATE 145 MG TABS 473982 FENOFIBRATE Inactive PROTONIX 40 MG SOLR 1 po qday for acid reflux PROTONIX 40 MG SOLR 995115 PANTOPRAZOLE SODIUM Inactive CEFDINIR 300 MG ORAL CAPS Take 1 cap po bid x 10 days CEFDINIR 300 MG ORAL CAPS 311054 CEFDINIR Inactive PREDNISONE 20 MG TAB 1 tablet twice daily for 2 days, then 1 tablet once daily for 2 days PREDNISONE 20 MG TAB 116698 PREDNISONE Inactive NYSTATIN 118832 UNIT/ML M/T SUSP 5mL po QID x 10 days NYSTATIN 795007 UNIT/ML M/T SUSP 904104 NYSTATIN Inactive BETADINE 10 % EXT SOLN wash with solution to treat follicultis BETADINE 10 % EXT SOLN 1954946 POVIDONE-IODINE Inactive TRILEPTAL 150 MG ORAL TABS 1 TAB PO Q HS TRILEPTAL 150 MG ORAL TABS 695213 OXCARBAZEPINE Inactive LAMISIL 125 MG ORAL PACK 1 TAB PO DAILY LAMISIL 125 MG ORAL PACK TERBINAFINE HCL Inactive HYDROCHLOROTHIAZIDE TABS Take one by mouth daily HYDROCHLOROTHIAZIDE TABS HYDROCHLOROTHIAZIDE TABS Inactive HYDROCODONE-ACETAMINOPHEN 5-325 MG TABS 1 tab by mouth BID prn back pain 2013 HYDROCODONE-ACETAMINOPHEN 5-325 MG TABS 062078 HYDROCODONE -ACETAMINOPHEN Inactive HYDRALAZINE HCL 50 MG ORAL TABS TWO BY MOUTH THREE TIMES DAILY HYDRALAZINE HCL 50 MG ORAL TABS 895019 HYDRALAZINE HCL Inactive ZITHROMAX 250 MG TAB 2 po today, then 1 po q days 2-5 ZITHROMAX 250 MG TAB 7592635 AZITHROMYCIN Inactive TERBINAFINE HCL 250 MG TABS 1 tab po qday for foot infection 2014 TERBINAFINE HCL 250 MG TABS 029321 TERBINAFINE HCL Inactive KEFLEX 500 MG CAP 1 po TID x 10 days KEFLEX 500 MG CAP 056304 CEPHALEXIN Inactive Advance Directives Directive Description Start [...] Acid - Chemistry sodium, serum 139 mmol/L 919-652 3754/04/22 carbon dioxide, venous blood 29.4 mmol/L 21.0-32.0 [...] to Follow Negative Lab Report: VITAMIN D, 25-HYDROXY/04374 - Chemistry vitamin D 25-hydroxy, serum 23 ng/mL 30-100 Encounters Code Encounter Date Provider Facility CPT-62265 Level 3 Est. Patient 19:38:43 CDT Robbie Busby MD [facility] CPT-66404 Level 3 Est. Patient 11:53:38 CDT Robbie Busby MD [facility] CPT-22836 Level 4 Est. Patient 12:52:22 CDT Rober Rodríguez APRN [facility] CPT-41133 Level 4 Est. Patient 22:55:17 CDT Robbie Busby MD [facility] CPT-43364 Level 3 Est. Patient 12:38:24 CDT Desmond Diaz DO [facility] CPT-15963 Level 4 Est. Patient 11:25:03 CORNICE UPHOL[employer]ER Robbie Busby MD [facility] CPT-98538 Level 4 Est. Patient 14:50:10 CDT Robbie Busby MD [facility] CPT-47210 Level 4 Est. Patient 23:30:43 CDT Robbie Busby MD [facility] CPT-63039 Level 4 Est. Patient 10:30:43 CDT Robbie Busby MD [facility] CPT-38486 Level 3 Est. Patient 17:08:12 CDT [facility] CPT-99975 Level 4 Est. Patient 17:51:38 CDT Robbie Busby MD [facility] CPT-32818 Level 4 Est. Patient 14:00:21 CDT Robbie Busby MD [facility] CPT-13296 Level 4 Est. Patient 12:46:48 CDT Robbie Busby MD [facility] CPT-88415 Level 4 Est. Patient 13:34:33 CDT Robbie Busby MD [facility] CPT-33244 Level 4 Est. Patient 16:58:28 CDT Robbie Busby MD [facility] CPT-38297 Level 3 Est. Patient 19:36:53 CDT [facility] CPT-40646 Level 3 Est. Patient 12:58:15 CDT Robbie Busby MD [facility] Procedures Code Procedure Name Date Entry Date Standard Description CPT-07373 Venipuncture Draw Fee 15:20:23 CDT CPT-77311 Microalbumin - LAB USE ONLY 16:02:19 CDT CPT-23080 CBC - LAB USE ONLY 16:02:19 CDT CPT-67827 Venipuncture Draw Fee 16:02:19 CDT CPT-G0438 Initial Annual Wellness Exam 08:10:28 CDT CPT-75277 Venipuncture Draw Fee 13:07:17 CDT CPT-G0008 Administration of Influenza Virus Vaccine 16:09:59 CDT CPT-69921 Fluzone Quadrivalent Intramuscular Suspension 0.5 ML 16: 09:59 CDT CPT-10334 Spec Collection and Handling Fee 15:05:50 CDT
--- OUTSIDE RECORDS SUMMARY | 2018-04-18 14:53 | XMS REPORT | Clinical Summary ---
Author Author Admin, [facility] Organization [facility] Address Unknown Phone Unavailable Allergies, Adverse [...] C V A / Stroke Active Robbie uBsby MD Myocardial Infarction: Active Robbie Busby MD [...] abscess of unspecified sites URI 465.9 Active Robre Rodríguez APRN Acute upper respiratory infections of unspecified site Hypertension 401.9 Active Rober Rodríguez APRN Unspecified essential hypertension Sinusitis - acute 461.9 Active Erin Garsia APRN Acute sinusitis, unspecified Medication List Medication Instructions Start Date Stop Date Generic Name NDC Status Provider Patient Instruction LEVAQUIN 500 MG TAB 1 tablet by mouth daily for 7 days LEVOFLOXACIN 82751031072 Active Erin Garsia APRN Active BACTRIM DS 800-160 MG TAB 1 tab by mouth twice daily TRIMETHOPRIM-SULFAMETHOXAZOLE 44834583994 No Longer Active Robbie Busby MD Active SPIRONOLACTONE 25 MG TAB 4 tablets by mouth daily SPIRONOLACTONE 60585532638 Active Robbie Busby MD Active HYDRALAZINE HCL 50 MG ORAL TABS TWO BY MOUTH THREE TIMES DAILY HYDRALAZINE HCL 89673313253 No Longer Active Andrellina Zulemal [employer]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 MACHINE OPERATOR Active HYDROCODONE-ACETAMINOPHEN 5-325 MG TABS 1 tab by mouth BID prn back pain 2013 HYDROCODONE-ACETAMINOPHEN 91706607749 No Longer Active Jillina Frazell [employer] BRUSHING MACHINE OPERATOR Active HYDROCHLOROTHIAZIDE TABS Take one by mouth daily HYDROCHLOROTHIAZIDE TABS 01454413713 No Longer Active Jillina Frazell [employer] BRUSHING MACHINE OPERATOR Active LAMISIL 125 MG ORAL PACK 1 TAB PO DAILY TERBINAFINE HCL 77431760324 No Longer Active Jillina Frazell [employer] BRUSHING MACHINE OPERATOR Active TRILEPTAL 150 MG ORAL TABS 1 TAB PO Q HS OXCARBAZEPINE 58826841700 No Longer Active Jillina Frazell [employer] BRUSHING MACHINE OPERATOR Active BETADINE 10 % EXT SOLN wash with solution to treat follicultis POVIDONE-IODINE 93545150302 No Longer Active Jillina Frazell [employer] BR[employer]ING MACHINE OPERATOR Active NYSTATIN 375284 UNIT/ML M/T SUSP 5mL po QID x 10 days NYSTATIN 33699025820 No Longer Active Erin Garsia APRN Active PREDNISONE 20 MG TAB 1 tablet twice daily for 2 days, then 1 tablet once daily for 2 days PREDNISONE 86351249370 No Longer Active Robbie Busby MD Active CEFDINIR 300 MG ORAL CAPS Take 1 cap po bid x 10 days CEFDINIR 08359907332 No Longer Active Robbie Busby MD Active AMLODIPINE BESYLATE 10 MG TABS 1 tablet by mouth daily AMLODIPINE BESYLATE 12204269468 Active Robbie Busby MD Active CARVEDILOL 25 MG TABS 1 & 1/2 TAB po BID CARVEDILOL 96518456919 Active Erin Garsia APRN Active VITAMIN D3 80313 UNIT CAPS 2 CAPS PO WEEKLY CHOLECALCIFEROL 55233365736 Active Erin Garsia APRN Active NEXIUM 40 MG CPDR 1 cap by mouth daily ESOMEPRAZOLE MAGNESIUM 36075176779 Active Robbie Busby MD Active PROTONIX 40 MG SOLR 1 po qday for acid reflux PANTOPRAZOLE SODIUM 07105103639 No Longer Active Gali Raida Active KEFLEX 500 MG CAP 1 po TID x 10 days CEPHALEXIN 87130795085 No Longer Active Robbie Busby MD Active FIORICET 50-300-40 MG ORAL CAPS take 1 tab po qday prn migraines. [id number] 37086851113 Active Robbie Busby MD Active TOPIRAMATE 50 MG ORAL TABS take 1 tab po BID for migraines. TOPIRAMATE 95132856978 Active Robbie Busby MD Active MECLIZINE HCL 25 MG TAB one 4 times a day as needed for dizziness MECLIZINE HCL 50358260184 Active Robbie Busby MD Active TEMAZEPAM 15 MG ORAL CAPS 1 TAB PO Q HS TEMAZEPAM 82668900822 Active Robbie Busby MD Active ALPRAZOLAM 2 MG ORAL TABS 1 TAB PO BID ALPRAZOLAM 30126757274 Active Robbie Busby MD Active FENOFIBRATE 145 MG TABS Take one by mouth daily FENOFIBRATE 10512480433 No Longer Active Robbie Busby MD Active SPIRONOLACTONE 50 MG TABS 1 tablet by mouth twice a day SPIRONOLACTONE 45558636926 No Longer Active Robbie Busby MD Active HYDRALAZINE HCL 25 MG TABS 1 tablet by mouth tid for hypertension HYDRALAZINE HCL 74996391914 No Longer Active Robbie Busby MD Active VIIBRYD 40 MG TABS take 1 tab po qday for depression. VILAZODONE HCL 30857370957 No Longer Active Robbie Busby MD Active TERBINAFINE HCL 250 MG TABS 1 tab po qday for foot infection 2014 TERBINAFINE HCL 61040426758 No Longer Active Robbie Busby MD Active GABAPENTIN 300 MG CAPS 1 po q hs for nerve pain GABAPENTIN 74442597391 Active Robbie Busby MD Active FLONASE 50 MCG/ACT SUSP 1 spray each nostril twice daily for allergies and runny nose FLUTICASONE PROPIONATE 10375029536 Active Robbie Busby MD Active CHERATUSSIN AC 100-10 MG/5ML ORAL SOLN 7.5 mL PO q 4-6 hrs PRN cough GUAIFENESIN-CODEINE 37310261423 No Longer Active Robbie Busby MD Active AZITHROMYCIN 250 MG ORAL TABS 2 tablets PO today---then, 1 tablet PO daily x 4 more days (and 1 optional refill) AZITHROMYCIN 40967851684 No Longer Active Robbie Busby MD Active CLONIDINE HCL 0.2 MG ORAL TABS 1 TAB BY MOUTH EVERY 8 HOURS CLONIDINE HCL 52807717708 Active Erin Garsia APRN Active NORVASC 10 MG TAB 1 tablet by mouth daily AMLODIPINE BESYLATE 24351349022 No Longer Active Alex ALVAREZ Active IMDUR 60 MG TAB CR take 1 tab po qday for blood pressure ISOSORBIDE MONONITRATE Active Robbie Busby MD Active ISOSORBIDE DINITRATE 30 MG TABS Take one by mouth daily ISOSORBIDE DINITRATE 86807554759 No Longer Active Robbie Busby MD Active VIIBRYD 40 MG TABS 1 TA B PO DAILY VILAZODONE HCL 01475523465 Active Robbie Busby MD Active LORATADINE 10 MG TABS 1 tablet by mouth daily for congestion and allergies. LORATADINE 21343568846 Active Robbie Busby MD Active ZITHROMAX 250 MG TAB 2 po today, then 1 po q days 2-5 AZITHROMYCIN 40460001558 No Longer Active Robbie Busby MD Active COBTKGHK-[id number]-0 0.3 MG/24HR PTWK apply 2 patches q week for HTN CLONIDINE HCL 14138262801 Active Robbie Busby MD Active NITROSTAT 0.4 MG SUBL PRN NITROGLYCERIN 99712751273 Active Robbie Busby MD Active DOXAZOSIN MESYLATE 4 MG TABS Take one by mouth daily DOXAZOSIN MESYLATE 75291618853 Active Erin Garsia APRN Active TOPROL XL 200 MG EG09K-SLP Take one by mouth daily METOPROLOL SUCCINATE 99293458259 Active Robbie Busby MD Active VENLAFAXINE HCL ER 150 MG JE46A-PEE Take one by mouth daily VENLAFAXINE HCL 26852742010 Active Robbie Busby MD Active LIPITOR 40 MG TABS Take one by mouth daily ATORVASTATIN CALCIUM 74727045707 Active Robbie Busby MD Active ISOSORBIDE DINITRATE 30 MG TABS Take one by mouth daily ISOSORBIDE DINITRATE 30 MG TABS 461841 ISOSORBIDE DINITRATE Inactive NORVASC 10 MG TAB 1 tablet by mouth daily NORVASC 10 MG TAB 127177 AMLODIPINE BESYLATE Inactive AZITHROMYCIN 250 MG ORAL TABS 2 tablets PO today---then, 1 tablet PO daily x 4 more days (and 1 optional refill) AZITHROMYCIN 250 MG ORAL TABS 3427181 AZITHROMYCIN Inactive CHERATUSSIN AC 100-10 MG/5ML ORAL SOLN 7.5 mL PO q 4-6 hrs PRN cough CHERATUSSIN AC 100-10 MG/5ML ORAL SOLN 100815 GUAIFENESIN- CODEINE Inactive VIIBRYD 40 MG TABS take 1 tab po qday for depression. VIIBRYD 40 MG TABS VILAZODONE HCL Inactive HYDRALAZINE HCL 25 MG TABS 1 tablet by mouth tid for hypertension HYDRALAZINE HCL 25 MG TABS 863351 HYDRALAZINE HCL Inactive SPIRONOLACTONE 50 MG TABS 1 tablet by mouth twice a day SPIRONOLACTONE 50 MG TABS 792888 SPIRONOLACTONE Inactive FENOFIBRATE 145 MG TABS Take one by mouth daily FENOFIBRATE 145 MG TABS 357225 FENOFIBRATE Inactive PROTONIX 40 MG SOLR 1 po qday for acid reflux PROTONIX 40 MG SOLR 775505 PANTOPRAZOLE SODIUM Inactive CEFDINIR 300 MG ORAL CAPS Take 1 cap po bid x 10 days CEFDINIR 300 MG ORAL CAPS 615429 CEFDINIR Inactive PREDNISONE 20 MG TAB 1 tablet twice daily for 2 days, then 1 tablet once daily for 2 days PREDNISONE 20 MG TAB 016229 PREDNISONE Inactive NYSTATIN 139364 UNIT/ML M/T SUSP 5mL po QID x 10 days NYSTATIN 716875 UNIT/ML M/T SUSP 247839 NYSTATIN Inactive BETADINE 10 % EXT SOLN wash with solution to treat follicultis BETADINE 10 % EXT SOLN 5159749 POVIDONE-IODINE Inactive TRILEPTAL 150 MG ORAL TABS 1 TAB PO Q HS TRILEPTAL 150 MG ORAL TABS 336356 OXCARBAZEPINE Inactive LAMISIL 125 MG ORAL PACK 1 TAB PO DAILY LAMISIL 125 MG ORAL PACK TERBINAFINE HCL Inactive HYDROCHLOROTHIAZIDE TABS Take one by mouth daily HYDROCHLOROTHIAZIDE TABS HYDROCHLOROTHIAZIDE TABS Inactive HYDROCODONE-ACETAMINOPHEN 5-325 MG TABS 1 tab by mouth BID prn back pain 2013 HYDROCODONE-ACETAMINOPHEN 5-325 MG TABS 798225 HYDROCODONE -ACETAMINOPHEN Inactive HYDRALAZINE HCL 50 MG ORAL TABS TWO BY MOUTH THREE TIMES DAILY HYDRALAZINE HCL 50 MG ORAL TABS 262375 HYDRALAZINE HCL Inactive ZITHROMAX 250 MG TAB 2 po today, then 1 po q days 2-5 ZITHROMAX 250 MG TAB 3713812 AZITHROMYCIN Inactive TERBINAFINE HCL 250 MG TABS 1 tab po qday for foot infection 2014 TERBINAFINE HCL 250 MG TABS 661127 TERBINAFINE HCL Inactive KEFLEX 500 MG CAP 1 po TID x 10 days KEFLEX 500 MG CAP 579284 CEPHALEXIN Inactive BACTRIM DS 800-160 MG TAB 1 tab by mouth twice daily BACTRIM DS 800-160 MG TAB 341719 TRIMETHOPRIM-SULFAMETHOXAZOLE Inactive Advance Directives Directive Description Start [...] Acid - Chemistry sodium, serum 139 mmol/L 748-906 2362/04/22 carbon dioxide, venous blood 29.4 mmol/L 21.0-32.0 [...] to Follow Negative Lab Report: VITAMIN D, 25-HYDROXY/43843 - Chemistry vitamin D 25-hydroxy, serum 23 ng/mL 30-100 Encounters Code Encounter Date Provider Facility CPT-79853 Level 4 Est. Patient 12:00:49 [employer] Rober Rodríguez APRN [facility] CPT-19411 Level 3 Est. Patient 09:16:37 CDT Robbie Busby MD [facility] CPT-84868 Level 3 Est. Patient 19:38:43 CDT Robbie Busby MD [facility] CPT-95089 Level 3 Est. Patient 11:53:38 CDT Robbie Busby MD [facility]-03300 Level 4 Est. Patient 12:52:22 CDT Rober Rodríguez APRN [facility] CPT-52844 Level 4 Est. Patient 22:55:17 CDT Robbie Busby MD [facility]-83193 Level 3 Est. Patient 12:38:24 CDT Desmond Diaz DO [facility] CPT-86468 Level 4 Est. Patient 11:25:03 [employer] INS[employer] Robbie Busby MD [facility] CPT-80409 Level 4 Est. Patient 14:50:10 CDT Robbie Busby MD [facility] CPT-64204 Level 4 Est. Patient 23:30:43 CDT Robbie Busby MD [facility] CPT-61706 Level 4 Est. Patient 10:30:43 CDT Robbie Busby MD [facility] CPT-86955 Level 3 Est. Patient 17:08:12 CDT Alex ALVAREZ [facility] CPT-68113 Level 4 Est. Patient 17:51:38 CDT Robbie Busby MD [facility] CPT-28857 Level 4 Est. Patient 14:00:21 CDT Robbie Busby MD [facility] CPT-80012 Level 4 Est. Patient 12:46:48 CDT Robbie Busby MD [facility]-60114 Level 4 Est. Patient 13:34:33 CDT Robbie Busby MD [facility] CPT-98461 Level 4 Est. Patient 16:58:28 CDT Robbie Busby MD [facility] CPT-00232 Level 3 Est. Patient 19:36:53 CDT Alex ALVAREZ [facility] CPT-34899 Level 3 Est. Patient 12:58:15 CDT Robbie Busby MD [facility] Procedures Code Procedure Name Date Entry Date Standard Description CPT-J0696 Rocephin 1000 mg (Ceftriaxone) 17:43:43 [employer] CPT-J1040 Depo Medrol 80 mg (Methyl Prednisolone Acetate) 17:43: 43 [employer] CPT-J1100 Decadron 8mg (Dexamethasone) 17:43:42 [employer] CPT-50459 Abx/Therapy Injection 17:43:42 [employer] INSPECT[employer] CPT-04222 Abx/Therapy Injection 17:43:42 [employer] INSPECT[employer] CPT-J1040 Depo Medrol 80 mg (Methyl Prednisolone Acetate) 09:43: 34 [employer] INSPECT[employer] CPT-J1100 Decadron 8mg (Dexamethasone) 09:43:34 [employer] INSPECTOR CPT-J0696 Rocephin 1gm Inj Solr 09:43:34 [employer] CPT-33126 Wound Culture - LAB USE ONLY 14:00:21 CDT CPT-I/D I/D Abscess 09:16:37 CDT CPT-81217 Venipuncture Draw Fee 15:20:23 CDT CPT-04913 Microalbumin - LAB USE ONLY 16:02:19 CDT CPT-56075 CBC - LAB USE ONLY 16:02:19 CDT CPT-76564 Venipuncture Draw Fee 16:02:19 CDT CPT-G0438 Initial Annual Wellness Exam 08:10:28 CDT CPT-71775 Venipuncture Draw Fee 13:07:17 CDT CPT-G0008 Administration of Influenza Virus Vaccine 16:09:59 CDT CPT-74001 Fluzone Quadrivalent Intramuscular Suspension 0.5 ML 16: 09:59 CDT CPT-72258 Spec Collection and Handling Fee 15:05:50 CDT
--- OUTSIDE RECORDS SUMMARY | 2018-04-18 14:54 | XMS REPORT | Clinical Summary ---
Author Author Admin, AKUA Organization [employer] Address Unknown Phone Unavailable Allergies, Adverse Reactions, [...] 2 weeks for low testosterone TESTOSTERONE CYPIONATE 36359890458 Active Zulema Blank LPN Active CYCLOBENZAPRINE HCL 10 MG ORAL TABS 1 po TID PRN muscle spasm/pain for 10 days CYCLOBENZAPRINE HCL 08661294517 Active JONATHAN Moncada Active GUAIFENESIN 600 MG [id number] 1 tab po q am GUAIFENESIN 25060981822 Active Rober Rodríguez STUDENT [employer]IVING INSTRUCTOR Active FLUTICASONE PROPIONATE 50 MCG/ACT SUSP 2 sprays per nostril bid for 1 week, then 1 spray bid FLUTICASONE PROPIONATE 47041034526 Active Jillina Frazelariana GONZALEZN Active HYDRALAZINE HCL 25 MG ORAL TABS Take 1 tab BID. HYDRALAZINE HCL 66859225180 Active Jillina Anne GONZALEZN Active VITAMIN D3 41257 UNIT ORAL TABS 2 po weekly CHOLECALCIFEROL 60447582706 Active Robbie Busby MD Active OXYCODONE HCL ER 10 MG ORAL T12A 1 tab po 3 times qd. OXYCODONE HCL 83060679587 Active Robbie Busby MD Active NITROSTAT 0.4 MG SUBL PRN NITROGLYCERIN 99297054995 No Longer Active Robbie Busby MD Active LORATADINE 10 MG TABS 1 tablet by mouth daily for congestion and allergies. LORATADINE 68710024189 No Longer Active Robbie Busby MD Active FLONASE 50 MCG/ACT SUSP 1 spray each nostril twice daily for allergies and runny nose FLUTICASONE PROPIONATE 55760833307 No Longer Active Robbie Busby MD Active FIORICET 50-300-40 MG ORAL CAPS take 1 tab po qday prn migraines. [id number] 98593450974 No Longer Active Robbie Busby MD Active VITAMIN D3 70954 UNIT CAPS 2 CAPS PO WEEKLY CHOLECALCIFEROL 45046635296 No Longer Active Robbie Busby MD Active CYCLOBENZAPRINE HCL 10 MG TABS 1 tablet by mouth three times daily as needed for muscle spasm/pain for 10 days CYCLOBENZAPRINE HCL 76055999512 No Longer Active Robbie Busby MD Active PREDNISONE 20 MG TAB take 3 tabs daily for 3 days, 2 tabs daily for 3 days, 1 tab daily for 3 days, 1/2 tab daily for 4 days PREDNISONE 76464643202 No Longer Active Erin Garsia APRN Active CLONIDINE HCL 0.2 MG ORAL TABS 1 TAB BY MOUTH EVERY 8 HOURS 12/29 CLONIDINE HCL 68214930077 No Longer Active Erin Garsia APRN Active MECLIZINE HCL 25 MG TAB one 4 times a day as needed for dizziness MECLIZINE HCL 62674240066 No Longer Active Erin Garsia APRN Active SPIRONOLACTONE 25 MG TAB 4 tablets by mouth daily SPIRONOLACTONE 78097111648 No Longer Active Erin Garsia APRN Active LEVAQUIN 500 MG TAB 1 tablet by mouth daily for 7 days LEVOFLOXACIN 47696189065 No Longer Active Erin Garsia APRN Active BACTRIM DS 800-160 MG TAB 1 tab by mouth twice daily TRIMETHOPRIM-SULFAMETHOXAZOLE 62852142523 No Longer Active Robbie Busby MD Active HYDRALAZINE HCL 50 MG ORAL TABS TWO BY MOUTH THREE TIMES DAILY HYDRALAZINE HCL 15893632599 No Longer Active Jillina Frazell STUDENT [employer]IVING INSTRUCTOR Active HYDROCODONE-ACETAMINOPHEN 5-325 MG TABS 1 tab by mouth BID prn back pain 2013 HYDROCODONE-ACETAMINOPHEN 41225583197 No Longer Active Jillina Frazell STUDENT [employer]IVING INSTRUCTOR Active HYDROCHLOROTHIAZIDE TABS Take one by mouth daily HYDROCHLOROTHIAZIDE TABS 94415434809 No Longer Active Jillina Frazell STUDENT [employer]IVING INSTRUCTOR Active LAMISIL 125 MG ORAL PACK 1 TAB PO DAILY TERBINAFINE HCL 66991571212 No Longer Active Jillina Frazell STUDENT DRIVING INSTRUCTOR Active TRILEPTAL 150 MG ORAL TABS 1 TAB PO Q HS OXCARBAZEPINE 54367028085 No Longer Active Jillina Frazell STUDENT [employer]IVING INSTRUCTOR Active BETADINE 10 % EXT SOLN wash with solution to treat follicultis POVIDONE-IODINE 32491752665 No Longer Active Jillina Frazell STUDENT [employer]IVING INSTRUCTOR Active NYSTATIN 394758 UNIT/ML M/T SUSP 5mL po QID x 10 days NYSTATIN 27258007791 No Longer Active Erin Ady STUDENT [employer]IVING INSTRUCTOR Active PREDNISONE 20 MG TAB 1 tablet twice daily for 2 days, then 1 tablet once daily for 2 days PREDNISONE 34585635192 No Longer Active Robbie Busby MD Active CEFDINIR 300 MG ORAL CAPS Take 1 cap po bid x 10 days CEFDINIR 32006402180 No Longer Active Robbie Busby MD Active AMLODIPINE BESYLATE 10 MG TABS 1 tablet by mouth daily AMLODIPINE BESYLATE 86080425945 Active Robbie Busby MD Active CARVEDILOL 25 MG TABS 1 & 1/2 TAB po BID CARVEDILOL 40390427517 Active Robbie Busby MD Active NEXIUM 40 MG CPDR 1 cap by mouth daily ESOMEPRAZOLE MAGNESIUM 92092276141 Active Robbie Busby MD Active PROTONIX 40 MG SOLR 1 po qday for acid reflux PANTOPRAZOLE SODIUM 32147152902 No Longer Active Gali Raida Active KEFLEX 500 MG CAP 1 po TID x 10 days CEPHALEXIN 12465279633 No Longer Active Robbie Busby MD Active TOPIRAMATE 50 MG ORAL TABS take 1 tab po BID for migraines. TOPIRAMATE 14912998299 Active Robbie Busby MD Active TEMAZEPAM 15 MG ORAL CAPS 1 TAB PO Q HS TEMAZEPAM 10596160344 Active Robbie Busby MD Active ALPRAZOLAM 2 MG ORAL TABS 1 TAB PO BID ALPRAZOLAM 18828596514 Active Robbie Busby MD Active FENOFIBRATE 145 MG TABS Take one by mouth daily FENOFIBRATE 30625000032 No Longer Active Robbie Busby MD Active SPIRONOLACTONE 50 MG TABS 1 tablet by mouth twice a day SPIRONOLACTONE 27497180738 No Longer Active Robbie Busby MD Active HYDRALAZINE HCL 25 MG TABS 1 tablet by mouth tid for hypertension HYDRALAZINE HCL 21915067074 No Longer Active Robbie Busby MD Active VIIBRYD 40 MG TABS take 1 tab po qday for depression. VILAZODONE HCL 75442317441 No Longer Active Robbie Busby MD Active TERBINAFINE HCL 250 MG TABS 1 tab po qday for foot infection 2014 TERBINAFINE HCL 89676624539 No Longer Active Robbie Busby MD Active GABAPENTIN 300 MG CAPS 1 po q hs for nerve pain GABAPENTIN 45582118889 Active Robbie Busby MD Active CHERATUSSIN AC 100-10 MG/5ML ORAL SOLN 7.5 mL PO q 4-6 hrs PRN cough GUAIFENESIN-CODEINE 26751491502 No Longer Active Robbie Busby MD Active AZITHROMYCIN 250 MG ORAL TABS 2 tablets PO today---then, 1 tablet PO daily x 4 more days (and 1 optional refill) AZITHROMYCIN 11424004946 No Longer Active Robbie Busby MD Active NORVASC 10 MG TAB 1 tablet by mouth daily AMLODIPINE BESYLATE 09103612482 No Longer Active Alex ALVAREZ Active IMDUR 60 MG TAB CR take 1 tab po qday for blood pressure ISOSORBIDE MONONITRATE Active Robbie Busby MD Active ISOSORBIDE DINITRATE 30 MG TABS Take one by mouth daily ISOSORBIDE DINITRATE 94637367811 No Longer Active Robbie Busby MD Active VIIBRYD 40 MG TABS 1 TA B PO DAILY VILAZODONE HCL 20590967434 Active Robbie Busby MD Active ZITHROMAX 250 MG TAB 2 po today, then 1 po q days 2-5 AZITHROMYCIN 06236918194 No Longer Active Robbie Busby MD Active [id number] 0.3 MG/24HR PTWK apply 2 patches q week for HTN CLONIDINE HCL 16055543503 Active Robbie Busby MD Active DOXAZOSIN MESYLATE 4 MG TABS Take one by mouth daily DOXAZOSIN MESYLATE 27932451270 Active Robbie Busby MD Active TOPROL XL 200 MG [id number] Take one by mouth daily METOPROLOL SUCCINATE 65694450750 Active Robbie Busby MD Active VENLAFAXINE HCL ER 150 MG [id number] Take one by mouth daily VENLAFAXINE HCL 92919971100 Active Robbie Busby MD Active LIPITOR 40 MG TABS Take one by mouth daily ATORVASTATIN CALCIUM 01691031704 Active Robbie Busby MD Active ISOSORBIDE DINITRATE 30 MG TABS Take one by mouth daily ISOSORBIDE DINITRATE 30 MG TABS 173145 ISOSORBIDE DINITRATE Inactive NORVASC 10 MG TAB 1 tablet by mouth daily NORVASC 10 MG TAB 855040 AMLODIPINE BESYLATE Inactive AZITHROMYCIN 250 MG ORAL TABS 2 tablets PO today---then, 1 tablet PO daily x 4 more days (and 1 optional refill) AZITHROMYCIN 250 MG ORAL TABS 6039089 AZITHROMYCIN Inactive CHERATUSSIN AC 100-10 MG/5ML ORAL SOLN 7.5 mL PO q 4-6 hrs PRN cough CHERATUSSIN AC 100-10 MG/5ML ORAL SOLN 041466 GUAIFENESIN- CODEINE Inactive VIIBRYD 40 MG TABS take 1 tab po qday for depression. VIIBRYD 40 MG TABS VILAZODONE HCL Inactive HYDRALAZINE HCL 25 MG TABS 1 tablet by mouth tid for hypertension HYDRALAZINE HCL 25 MG TABS 934786 HYDRALAZINE HCL Inactive SPIRONOLACTONE 50 MG TABS 1 tablet by mouth twice a day SPIRONOLACTONE 50 MG TABS 364685 SPIRONOLACTONE Inactive FENOFIBRATE 145 MG TABS Take one by mouth daily FENOFIBRATE 145 MG TABS 091577 FENOFIBRATE Inactive PROTONIX 40 MG SOLR 1 po qday for acid reflux PROTONIX 40 MG SOLR 542965 PANTOPRAZOLE SODIUM Inactive CEFDINIR 300 MG ORAL CAPS Take 1 cap po bid x 10 days CEFDINIR 300 MG ORAL CAPS 429897 CEFDINIR Inactive PREDNISONE 20 MG TAB 1 tablet twice daily for 2 days, then 1 tablet once daily for 2 days PREDNISONE 20 MG TAB 919546 PREDNISONE Inactive NYSTATIN 998578 UNIT/ML M/T SUSP 5mL po QID x 10 days NYSTATIN 309398 UNIT/ML M/T SUSP 835179 NYSTATIN Inactive BETADINE 10 % EXT SOLN wash with solution to treat follicultis BETADINE 10 % EXT SOLN 2430535 POVIDONE-IODINE Inactive TRILEPTAL 150 MG ORAL TABS 1 TAB PO Q HS TRILEPTAL 150 MG ORAL TABS 169194 OXCARBAZEPINE Inactive LAMISIL 125 MG ORAL PACK 1 TAB PO DAILY LAMISIL 125 MG ORAL PACK TERBINAFINE HCL Inactive HYDROCHLOROTHIAZIDE TABS Take one by mouth daily HYDROCHLOROTHIAZIDE TABS HYDROCHLOROTHIAZIDE TABS Inactive HYDROCODONE-ACETAMINOPHEN 5-325 MG TABS 1 tab by mouth BID prn back pain 2013 HYDROCODONE-ACETAMINOPHEN 5-325 MG TABS 770223 HYDROCODONE -ACETAMINOPHEN Inactive HYDRALAZINE HCL 50 MG ORAL TABS TWO BY MOUTH THREE TIMES DAILY HYDRALAZINE HCL 50 MG ORAL TABS 504182 HYDRALAZINE HCL Inactive LEVAQUIN 500 MG TAB 1 tablet by mouth daily for 7 days LEVAQUIN 500 MG TAB 251730 LEVOFLOXACIN Inactive SPIRONOLACTONE 25 MG TAB 4 tablets by mouth daily SPIRONOLACTONE 25 MG TAB 221635 SPIRONOLACTONE Inactive MECLIZINE HCL 25 MG TAB one 4 times a day as needed for dizziness MECLIZINE HCL 25 MG TAB 474334 MECLIZINE HCL Inactive CLONIDINE HCL 0.2 MG ORAL TABS 1 TAB BY MOUTH EVERY 8 HOURS 12/29 CLONIDINE HCL 0.2 MG ORAL TABS 443379 CLONIDINE HCL Inactive CYCLOBENZAPRINE HCL 10 MG TABS 1 tablet by mouth three times daily as needed for muscle spasm/pain for 10 days CYCLOBENZAPRINE HCL 10 MG TABS 530281 CYCLOBENZAPRINE HCL Inactive VITAMIN D3 41594 UNIT CAPS 2 CAPS PO WEEKLY VITAMIN D3 92175 UNIT CAPS CHOLECALCIFEROL Inactive FIORICET 50-300-40 MG ORAL CAPS take 1 tab po qday prn migraines. FIORICET 50-300-40 MG ORAL CAPS 190272 [id number] Inactive FLONASE 50 MCG/ACT SUSP 1 spray each nostril twice daily for allergies and runny nose FLONASE 50 MCG/ACT SUSP 6061079 FLUTICASONE PROPIONATE Inactive LORATADINE 10 MG TABS 1 tablet by mouth daily for congestion and allergies. LORATADINE 10 MG TABS 052961 LORATADINE Inactive NITROSTAT 0.4 MG SUBL PRN NITROSTAT 0.4 MG SUBL 704775 NITROGLYCERIN Inactive ZITHROMAX 250 MG TAB 2 po today, then 1 po q days 2-5 ZITHROMAX 250 MG TAB 6175953 AZITHROMYCIN Inactive TERBINAFINE HCL 250 MG TABS 1 tab po qday for foot infection 2014 TERBINAFINE HCL 250 MG TABS 008733 TERBINAFINE HCL Inactive KEFLEX 500 MG CAP 1 po TID x 10 days KEFLEX 500 MG CAP 797034 CEPHALEXIN Inactive BACTRIM DS 800-160 MG TAB 1 tab by mouth twice daily BACTRIM DS 800-160 MG TAB 734870 TRIMETHOPRIM-SULFAMETHOXAZOLE Inactive PREDNISONE 20 MG TAB take 3 tabs daily for 3 days, 2 tabs daily for 3 days, 1 tab daily for 3 days, 1/2 tab daily for 4 days PREDNISONE 20 MG TAB 972226 PREDNISONE Inactive Advance Directives Directive Description Start [...] % 11.6-14.8 platelet count 229 10^3/MM^3 10*3/mm3 512-484 3162/09/06 mean corpuscular volume, RBC 90 fL 80-97 hematocrit, blood 42.4 % 41.0-53.0 hemoglobin, blood 14.4 g/dL 13.5-17.5 erythrocyte (RBC) count 4.72 10^6/MM^3 10*6/mm3 4.69-6.13 leukocyte count, blood 9.7 10^3/MM^3 10*3/mm3 4.6-10.2 Lab Report: CBC W/DIFF, Comp. Metabolic Panel, CKI, UADIP W/MICRO, AUTO - Chemistry protein, total urine random 1+ mg/dL Negative RBC, urine, dipstick 2+ Negative sodium, serum 142 mmol/L 738-267 6572/07/17 carbon dioxide, venous blood 28.2 mmol/L 21.0-32.0 [...] % 11.0-15.0 platelet count 185 THOUSAND/UL 10*3/mm3 141-522 6588/04/14 mean platelet volume 10.9 fL 7.5-12.5 Lab Report: LIPID PANEL, TSH/899, T4, FREE/866 - Chemistry cholesterol, serum 220 mg/dL 411-660 4040/04/14 HDL cholesterol, serum 30 mg/dL > OR=40 triglyceride, serum, fasting 466 mg/dL <150 LDL cholesterol, serum SEE NOTE mg/dL (calc) mg/dL <130 cholesterol/HDL ratio, serum 7.3 (calc) < OR=5.0 Lab Report: MICROALB/CREAT W/RATIO - Chemistry albumin/creatinine ratio, urine < 30 mg/g mg/g{creat} 0-29 Lab Report: MICROALB/CREAT W/RATIO - Lab microalbumin, urine 80 0-19 Lab Report: VITAMIN D, 25-HYDROXY/38938 - Chemistry vitamin D 25-hydroxy, serum 25 ng/mL 30-100 Office Visit: Confusion, dizziness after fall - Basic LDL target level 130 mg/dL Office Visit: Confusion, dizziness after fall - Chemistry HDL cholesterol, serum, target level 40 mg/dL triglyceride, target level 150 mg/dL cholesterol, target level 200 mg/dL Encounters Code Encounter Date Provider Facility CPT-51450 Level 4 Est. Patient 15:18:19 CDT Robbie Busby MD [facility] CPT-35017 Level 3 Est. Patient 09:00:37 CDT Rober Rodríguez [facility] [place] CPT-17237 Level 3 Est. Patient 16:07:10 CDT Robbie Busby MD [facility] CPT-83038 Level 4 Est. Patient 11:56:[address] [facility] [place] CPT-18605 Level 3 Est. Patient 17:48:02 CDT Robbie Busby MD [facility] CPT-52048 Level 4 Est. Patient 12:00:49 [employer] Rober Rodríguez [facility] [place] CPT-11236 Level 3 Est. Patient 09:16:37 CDT Robbie Busby MD [facility] CPT-92423 Level 3 Est. Patient 19:38:43 CDT Robbie Busby MD [facility] CPT-56303 Level 3 Est. Patient 11:53:38 CDT Robbie Busby MD [facility] CPT-76780 Level 4 Est. Patient 12:52:22 CDT Rober Rodríguez [facility] [place] CPT-31576 Level 4 Est. Patient 22:55:17 CDT Robbie Busby MD [facility] CPT-82113 Level 3 Est. Patient 12:38:24 CDT Desmond Diaz DO [facility] CPT-90121 Level 4 Est. Patient 11:25:03 [place] [place] Robbie Busby MD [facility] CPT-70316 Level 4 Est. Patient 14:50:10 CDT Robbie Busby MD [facility] CPT-70540 Level 4 Est. Patient 23:30:43 CDT Robbie Busby MD [facility] CPT-71753 Level 4 Est. Patient 10:30:43 CDT Robbie Busby MD [facility] CPT-43817 Level 3 Est. Patient 17:08:12 CDT Alex Shaw [facility] CPT-45879 Level 4 Est. Patient 17:51:38 CDT Robbie Busby MD [facility] CPT-74653 Level 4 Est. Patient 14:00:21 CDT Robbie Busby MD [facility] CPT-21499 Level 4 Est. Patient 12:46:48 CDT Robbie Busby MD [facility] CPT-74729 Level 4 Est. Patient 13:34:33 CDT Robbie Busby MD [facility] CPT-29943 Level 4 Est. Patient 16:58:28 CDT Robbie Busby MD [facility] CPT-62259 Level 3 Est. Patient 19:36:53 CDT Alex Shaw [facility] CPT-46012 Level 3 Est. Patient 12:58:15 CDT Robbie Busby MD [facility] Procedures Code Procedure Name Date Entry Date Standard Description CPT-J1071 Depo Testosterone 200mg 08:24:00 CDT CPT-45534 Abx/Therapy Injection 08:24:00 CDT CPT-34599 Venipuncture Draw Fee 14:39:06 CDT CPT-51197 Ribs unilateral 2V - XRAY USE ONLY 12:10:11 CDT CPT-65207 First Vx - Ix admin for Medicare patients 16:32:53 CDT CPT-36198 Boostrix Intramuscular Suspension 5-2.5-18.5 16:32:53 CDT CPT-85204 TB Skin Test 11:42:28 CDT CPT-96554 Tdap 7yrs or > 11:42:28 CDT CPT-J0696 Rocephin 1000 mg (Ceftriaxone) 17:43:43 [employer] CPT-J1040 Depo Medrol 80 mg (Methyl Prednisolone Acetate) 17:43: 43 [employer] CPT-J1100 Decadron 8mg (Dexamethasone) 17:43:42 [employer] CPT-87105 Abx/Therapy Injection 17:43:42 [employer] CPT-42662 Abx/Therapy Injection 17:43:42 [employer] CPT-J1040 Depo Medrol 80 mg (Methyl Prednisolone Acetate) 09:43: 34 [employer] CPT-J1100 Decadron 8mg (Dexamethasone) 09:43:34 [employer] CPT-J0696 Rocephin 1gm Inj Solr 09:43:34 [employer] CPT-59639 Wound Culture - LAB USE ONLY 14:00:21 CDT CPT-I/D I/D Abscess 09:16:37 CDT CPT-07944 Venipuncture Draw Fee 15:20:23 CDT CPT-96790 Microalbumin - LAB USE ONLY 16:02:19 CDT CPT-26983 CBC - LAB USE ONLY 16:02:19 CDT CPT-90735 Venipuncture Draw Fee 16:02:19 CDT CPT-G0438 Initial Annual Wellness Exam 08:10:28 CDT CPT-23907 Venipuncture Draw Fee 13:07:17 CDT CPT-G0008 Administration of Influenza Virus Vaccine 16:09:59 CDT CPT-33089 Fluzone Quadrivalent Intramuscular Suspension 0.5 ML 16: 09:59 CDT CPT-59711 Spec Collection and Handling Fee 15:05:50 CDT
--- OUTSIDE RECORDS SUMMARY | 2018-04-18 14:57 | XMS REPORT | Clinical Summary ---
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 Desmond Diaz DO Other malignant secondary hypertension Tachycardia 785.0 Active Rober Rodríguez JIGGER OPERATOR Tachycardia, unspecified Insect bite, infected 919.5 Resolved Desmond Diaz DO Insect bite, nonvenomous, of other, multiple, and unspecified sites, infected Abscess, skin 682.9 Resolved Desmond Diaz DO Cellulitis and abscess of unspecified sites URI 465.9 Resolved Desmond Diaz DO Acute upper respiratory infections of unspecified site Hypertension 401.9 Active Rober Rodríguez JIGGER OPERATOR Unspecified essential hypertension Sinusitis - acute [...] Myalgia and myositis, unspecified URI 465.9 Resolved Dsemond Diaz DO Acute upper respiratory infections of unspecified site Hypogonadism, low testosterone 257.2 Active Erin Garsia JIGGER OPERATOR Other testicular hypofunction Low back pain, chronic 724.2 Active Robbie Busby MD Lumbago Bronchitis-Acute 466.0 Inactive Desmond Diaz DO Acute bronchitis Polydipsia 783.5 Active Desmond Diaz DO Polydipsia Type 2 diabetes mellitus with hyperglycemia Active Robbie Busby MD Sinusitis ICD-461.9 Inactive Emily Atwood LPN 2017 Low back pain, acute ICD-724.2 Inactive Emily Atwood LPN Low back pain, chronic ICD-724.2 Inactive Emily Atwood SUBJECT SCIENTIFIC RESEARCH Bronchitis, acute ICD-466.0 Inactive Emily Atwood SUBJECT SCIENTIFIC RESEARCH Onychomycosis, toenails ICD-110.1 Inactive Emily Atwood SUBJECT SCIENTIFIC RESEARCH Dizziness ICD-780.4 Inactive Emily Atwood SUBJECT SCIENTIFIC RESEARCH 2017 Folliculitis ICD-704.8 Inactive Emily Atwood SUBJECT SCIENTIFIC RESEARCH Pharyngitis-Acute ICD-462 Inactive Emily Atwood SUBJECT SCIENTIFIC RESEARCH Fatigue ICD-780.79 Inactive Emily Atwood SUBJECT SCIENTIFIC RESEARCH 09/20 Hypertension, secondary, malignant ICD-405.09 Inactive Emily Atwood SUBJECT SCIENTIFIC RESEARCH Insect bite, infected ICD-919.5 Inactive Emily Atwood SUBJECT SCIENTIFIC RESEARCH Abscess, skin ICD-682.9 Inactive Emily Atwood SUBJECT SCIENTIFIC RESEARCH URI ICD-465.9 Inactive Emily Atwood SUBJECT SCIENTIFIC RESEARCH Sinusitis - acute ICD-461.9 Inactive Emily Atwood SUBJECT SCIENTIFIC RESEARCH Acute confusion ICD-293.0 Inactive Emily Atwood SUBJECT SCIENTIFIC RESEARCH Headache ICD-784.0 Inactive Emily Atwood SUBJECT SCIENTIFIC RESEARCH 09/20 Back pain ICD-724.5 Inactive Emily Atwood SUBJECT SCIENTIFIC RESEARCH 2017 Rib pain, right sided ICD-786.50 Inactive Emily Atwood SUBJECT SCIENTIFIC RESEARCH Myalgias ICD-729.1 Inactive Emily Atwood LPN 09/20 URI ICD-465.9 Inactive Emily Atwood LPN Bronchitis-Acute ICD-466.0 Inactive Desmond Diaz DO Medication List Medication Instructions Start Date Stop Date Generic Name NDC Status Provider Patient Instruction CYCLOBENZAPRINE HCL 10 MG ORAL TABLET 1 tablet by mouth three times daily as needed for muscle spasm/pain CYCLOBENZAPRINE HCL 89930890576 Active Robbie Busby MD Active METFORMIN HCL 500 MG ORAL TABLET 1 tablet by mouth daily for diabetes type 2 METFORMIN HCL 10511870650 Active Robbie Busby MD Active SINGULAIR 10 MG ORAL TABLET 1 po qday for allergies. MONTELUKAST SODIUM 21588708355 No Longer Active Robbie Busby MD Active PREDNISONE 20 MG ORAL TABLET two tabs by mouth today, then one tab by mouth days two and three PREDNISONE 49295784906 No Longer Active Robbie Busby MD Active TOPIRAMATE 50 MG ORAL TABLET 1 po BID for migraines TOPIRAMATE 23366813654 Active JONATHAN Moncada Active AZITHROMYCIN 250 MG ORAL TABLET 2 po qd x 1 day, then 1 po qd x 4 days 09/20 AZITHROMYCIN 22697843242 No Longer Active Desmond Diaz DO Active TOPIRAMATE 50 MG ORAL TABLET take 1 tab po BID for migraines. TOPIRAMATE 85001704938 No Longer Active Desmond Diaz DO Active CYCLOBENZAPRINE HCL 10 MG ORAL TABLET 1 po TID PRN muscle spasm/pain for 10 days CYCLOBENZAPRINE HCL 97797839815 No Longer Active Desmond Diaz DO Active GUAIFENESIN ER 600 MG ORAL TABLET EXTENDED RELEASE 12 HOUR 1 tab po q am 2016 GUAIFENESIN 39030333680 No Longer Active Robbie Busby MD Active DIVALPROEX SODIUM ER 500 MG ORAL TABLET EXTENDED RELEASE 24 HOUR Once daily DIVALPROEX SODIUM 55114331821 Active Robbie Busby MD Active DEPO-TESTOSTERONE 200 MG/ML INTRAMUSCULAR SOLUTION 1 IM Injections every 2 weeks for low testosterone TESTOSTERONE CYPIONATE 19620049052 Active Zulema Blank LPN Active FLUTICASONE PROPIONATE 50 MCG/ACT NASAL SUSPENSION 2 sprays per nostril bid for 1 week, then 1 spray bid FLUTICASONE PROPIONATE 06336276802 Active Rober Rodríguez APRN Active HYDRALAZINE HCL 25 MG ORAL TABLET Take 1 tab BID. HYDRALAZINE HCL 18971680617 Active Rober Rodríguez APRN Active VITAMIN D3 81331 UNIT ORAL TABLET 2 po weekly CHOLECALCIFEROL 32756736026 Active Robbie Busby MD Active OXYCODONE HCL ER 10 MG ORAL TABLET ER 12 HOUR ABUSE-DETERRENT 1 tab po 3 times qd. OXYCODONE HCL 74080760919 Active Robbie Busby MD Active NITROSTAT 0.4 MG SUBLINGUAL TABLET SUBLINGUAL PRN NITROGLYCERIN 29285820878 No Longer Active Robbie Busby MD Active LORATADINE 10 MG ORAL TABLET 1 tablet by mouth daily for congestion and allergies. LORATADINE 76013711544 No Longer Active Robbie Busby MD Active FLONASE 50 MCG/ACT NASAL SUSPENSION 1 spray each nostril twice daily for allergies and runny nose FLUTICASONE PROPIONATE 69572894522 No Longer Active Robbie Busby MD Active FIORICET 50-300-40 MG ORAL CAPSULE take 1 tab po qday prn migraines. [id number] 72304668625 No Longer Active Robbie Busby MD Active VITAMIN D3 53215 UNIT ORAL CAPSULE 2 CAPS PO WEEKLY CHOLECALCIFEROL 86953036802 No Longer Active Robbie Busby MD Active CYCLOBENZAPRINE HCL 10 MG ORAL TABLET 1 tablet by mouth three times daily as needed for muscle spasm/pain for 10 days CYCLOBENZAPRINE HCL 56466838935 No Longer Active Robbie Busby MD Active PREDNISONE 20 MG ORAL TABLET take 3 tabs daily for 3 days, 2 tabs daily for 3 days, 1 tab daily for 3 days, 1/2 tab daily for 4 days PREDNISONE 30793204183 No Longer Active Erin Garisa APRN Active CLONIDINE HCL 0.2 MG ORAL TABLET 1 TAB BY MOUTH EVERY 8 HOURS CLONIDINE HCL 11193531575 No Longer Active Erin Garsia APRN Active MECLIZINE HCL 25 MG ORAL TABLET one 4 times a day as needed for dizziness MECLIZINE HCL 49307197528 No Longer Active Erin Garsia APRN Active SPIRONOLACTONE 25 MG ORAL TABLET 4 tablets by mouth daily SPIRONOLACTONE 34121569569 No Longer Active Erin Garsia APRN Active LEVAQUIN 500 MG ORAL TABLET 1 tablet by mouth daily for 7 days LEVOFLOXACIN 09754572557 No Longer Active Erin Garsia APRN Active BACTRIM DS 800-160 MG ORAL TABLET 1 tab by mouth twice daily 2015 TRIMETHOPRIM-SULFAMETHOXAZOLE 92546819097 No Longer Active Robbie Busby MD Active HYDRALAZINE HCL 50 MG ORAL TABLET TWO BY MOUTH THREE TIMES DAILY HYDRALAZINE HCL 60363346048 No Longer Active Rober Rodríguez APRN Active HYDROCODONE-ACETAMINOPHEN 5-325 MG ORAL TABLET 1 tab by mouth BID prn back pain HYDROCODONE-ACETAMINOPHEN 99564898745 No Longer Active Rober Rodríguez APRN Active HYDROCHLOROTHIAZIDE TABLET Take one by mouth daily HYDROCHLOROTHIAZIDE TABS 94045042430 No Longer Active Rober Rodríguez APRN Active LAMISIL 125 MG ORAL PACKET 1 TAB PO DAILY TERBINAFINE HCL 62715125840 No Longer Active Rober Rodríguez APRN Active TRILEPTAL 150 MG ORAL TABLET 1 TAB PO Q HS OXCARBAZEPINE 00439729567 No Longer Active Jillina Frazell JIGGER OPERATOR Active BETADINE 10 % EXTERNAL SOLUTION wash with solution to treat follicultis 07/29 POVIDONE-IODINE 57453162255 No Longer Active Rober Rodríguez JIGGER OPERATOR Active NYSTATIN 457675 UNIT/ML MOUTH/THROAT SUSPENSION 5mL po QID x 10 days NYSTATIN 14033534984 No Longer Active Erin Garsia APRN Active PREDNISONE 20 MG ORAL TABLET 1 tablet twice daily for 2 days, then 1 tablet once daily for 2 days PREDNISONE 58672818793 No Longer Active Robbie Busby MD Active CEFDINIR 300 MG ORAL CAPSULE Take 1 cap po bid x 10 days CEFDINIR 06618439794 No Longer Active Robbie Busby MD Active AMLODIPINE BESYLATE 10 MG ORAL TABLET 1 tablet by mouth daily AMLODIPINE BESYLATE 31522067368 Active Robbie Busby MD Active CARVEDILOL 25 MG ORAL TABLET 1 & 1/2 TAB po BID CARVEDILOL 70769888730 Active Robbie Busby MD Active NEXIUM 40 MG ORAL CAPSULE DELAYED RELEASE 1 cap by mouth daily ESOMEPRAZOLE MAGNESIUM 74405108506 Active Robbie Busby MD Active PROTONIX 40 MG INTRAVENOUS SOLUTION RECONSTITUTED 1 po qday for acid reflux PANTOPRAZOLE SODIUM 94111732207 No Longer Active Gali Raida Active KEFLEX 500 MG ORAL CAPSULE 1 po TID x 10 days CEPHALEXIN 71310389837 No Longer Active Robbie Busby MD Active TEMAZEPAM 15 MG ORAL CAPSULE 1 TAB PO Q HS TEMAZEPAM 31879026703 Active Robbie Busby MD Active ALPRAZOLAM 2 MG ORAL TABLET 1 TAB PO BID ALPRAZOLAM 64538145484 Active Robbie Busby MD Active FENOFIBRATE 145 MG ORAL TABLET Take one by mouth daily FENOFIBRATE 68137873512 No Longer Active Robbie Busby MD Active SPIRONOLACTONE 50 MG ORAL TABLET 1 tablet by mouth twice a day SPIRONOLACTONE 04140234537 No Longer Active Robbie Busby MD Active HYDRALAZINE HCL 25 MG ORAL TABLET 1 tablet by mouth tid for hypertension 2013 HYDRALAZINE HCL 65119292711 No Longer Active Robbie Busby MD Active VIIBRYD 40 MG ORAL TABLET take 1 tab po qday for depression. 2014 VILAZODONE HCL 03266602839 No Longer Active Robbie Busby MD Active TERBINAFINE HCL 250 MG ORAL TABLET 1 tab po qday for foot infection TERBINAFINE HCL 43765182959 No Longer Active Robbie Busby MD Active GABAPENTIN 300 MG ORAL CAPSULE 1 po q hs for nerve pain GABAPENTIN 85769596276 Active Robbie Busby MD Active CHERATUSSIN AC 100-10 MG/5ML ORAL SOLUTION 7.5 mL PO q 4-6 hrs PRN cough 2014 GUAIFENESIN-CODEINE 39872645212 No Longer Active Robbie Busby MD Active AZITHROMYCIN 250 MG ORAL TABLET 2 tablets PO today---then, 1 tablet PO daily x 4 more days (and 1 optional refill) AZITHROMYCIN 60147542944 No Longer Active Robbie Busby MD Active NORVASC 10 MG ORAL TABLET 1 tablet by mouth daily AMLODIPINE BESYLATE 71506495632 No Longer Active Alex ALVAREZ Active IMDUR 60 MG ORAL TABLET EXTENDED RELEASE 24 HOUR take 1 tab po qday for blood pressure ISOSORBIDE MONONITRATE 58852594931 Active Robbie Busby MD Active ISOSORBIDE DINITRATE 30 MG ORAL TABLET Take one by mouth daily ISOSORBIDE DINITRATE 29356687595 No Longer Active Robbie Busby MD Active VIIBRYD 40 MG ORAL TABLET 1 TA B PO DAILY VILAZODONE HCL 50157332408 Active Robbie Busby MD Active ZITHROMAX 250 MG ORAL TABLET 2 po today, then 1 po q days 2-5 AZITHROMYCIN 38976056951 No Longer Active Robbie Busby MD Active [id number] 0.3 MG/24HR TRANSDERMAL PATCH WEEKLY apply 2 patches q week for HTN CLONIDINE HCL 47896189730 Active Robbie Busby MD Active DOXAZOSIN MESYLATE 4 MG ORAL TABLET Take one by mouth daily DOXAZOSIN MESYLATE 78973350496 Active Robbie Busby MD Active TOPROL XL 200 MG ORAL TABLET EXTENDED RELEASE 24 HOUR Take one by mouth daily METOPROLOL SUCCINATE 47076013020 Active Robbie Busby MD Active VENLAFAXINE HCL ER 150 MG ORAL TABLET EXTENDED RELEASE 24 HOUR Take one by mouth daily VENLAFAXINE HCL 24387234887 Active Robbie Busby MD Active LIPITOR 40 MG ORAL TABLET Take one by mouth daily ATORVASTATIN CALCIUM 78949790870 Active Robbie Busby MD Active ISOSORBIDE DINITRATE 30 MG ORAL TABLET Take one by mouth daily ISOSORBIDE DINITRATE 30 MG ORAL TABLET 038879 ISOSORBIDE DINITRATE Inactive NORVASC 10 MG ORAL TABLET 1 tablet by mouth daily NORVASC 10 MG ORAL TABLET 050260 AMLODIPINE BESYLATE Inactive AZITHROMYCIN 250 MG ORAL TABLET 2 tablets PO today---then, 1 tablet PO daily x 4 more days (and 1 optional refill) AZITHROMYCIN 250 MG ORAL TABLET 294476 AZITHROMYCIN Inactive CHERATUSSIN AC 100-10 MG/5ML ORAL SOLUTION 7.5 mL PO q 4-6 hrs PRN cough 2014 CHERATUSSIN AC 100-10 MG/5ML ORAL SOLUTION 089189 GUAIFENESIN-CODEINE Inactive VIIBRYD 40 MG ORAL TABLET take 1 tab po qday for depression. 2014 VIIBRYD 40 MG ORAL TABLET VILAZODONE HCL Inactive HYDRALAZINE HCL 25 MG ORAL TABLET 1 tablet by mouth tid for hypertension 2013 HYDRALAZINE HCL 25 MG ORAL TABLET 596445 HYDRALAZINE HCL Inactive SPIRONOLACTONE 50 MG ORAL TABLET 1 tablet by mouth twice a day SPIRONOLACTONE 50 MG ORAL TABLET 753095 SPIRONOLACTONE Inactive FENOFIBRATE 145 MG ORAL TABLET Take one by mouth daily FENOFIBRATE 145 MG ORAL TABLET 231240 FENOFIBRATE Inactive PROTONIX 40 MG INTRAVENOUS SOLUTION RECONSTITUTED 1 po qday for acid reflux PROTONIX 40 MG INTRAVENOUS SOLUTION RECONSTITUTED 431894 PANTOPRAZOLE SODIUM Inactive CEFDINIR 300 MG ORAL CAPSULE Take 1 cap po bid x 10 days CEFDINIR 300 MG ORAL CAPSULE 020445 CEFDINIR Inactive PREDNISONE 20 MG ORAL TABLET 1 tablet twice daily for 2 days, then 1 tablet once daily for 2 days PREDNISONE 20 MG ORAL TABLET 128669 PREDNISONE Inactive NYSTATIN 035438 UNIT/ML MOUTH/THROAT SUSPENSION 5mL po QID x 10 days NYSTATIN 893314 UNIT/ML MOUTH/THROAT SUSPENSION 490942 NYSTATIN Inactive BETADINE 10 % EXTERNAL SOLUTION wash with solution to treat follicultis 07/29 BETADINE 10 % EXTERNAL SOLUTION 9066515 POVIDONE-IODINE Inactive TRILEPTAL 150 MG ORAL TABLET 1 TAB PO Q HS TRILEPTAL 150 MG ORAL TABLET 686473 OXCARBAZEPINE Inactive LAMISIL 125 MG ORAL PACKET 1 TAB PO DAILY LAMISIL 125 MG ORAL PACKET TERBINAFINE HCL Inactive HYDROCHLOROTHIAZIDE TABLET Take one by mouth daily HYDROCHLOROTHIAZIDE TABLET HYDROCHLOROTHIAZIDE TABS Inactive HYDROCODONE-ACETAMINOPHEN 5-325 MG ORAL TABLET 1 tab by mouth BID prn back pain HYDROCODONE-ACETAMINOPHEN 5-325 MG ORAL TABLET 940579 HYDROCODONE-ACETAMINOPHEN Inactive HYDRALAZINE HCL 50 MG ORAL TABLET TWO BY MOUTH THREE TIMES DAILY HYDRALAZINE HCL 50 MG ORAL TABLET 165379 HYDRALAZINE HCL Inactive LEVAQUIN 500 MG ORAL TABLET 1 tablet by mouth daily for 7 days LEVAQUIN 500 MG ORAL TABLET 154182 LEVOFLOXACIN Inactive SPIRONOLACTONE 25 MG ORAL TABLET 4 tablets by mouth daily SPIRONOLACTONE 25 MG ORAL TABLET 051154 SPIRONOLACTONE Inactive MECLIZINE HCL 25 MG ORAL TABLET one 4 times a day as needed for dizziness MECLIZINE HCL 25 MG ORAL TABLET 753641 MECLIZINE HCL Inactive CLONIDINE HCL 0.2 MG ORAL TABLET 1 TAB BY MOUTH EVERY 8 HOURS CLONIDINE HCL 0.2 MG ORAL TABLET 807273 CLONIDINE HCL Inactive CYCLOBENZAPRINE HCL 10 MG ORAL TABLET 1 tablet by mouth three times daily as needed for muscle spasm/pain for 10 days CYCLOBENZAPRINE HCL 10 MG ORAL TABLET 571917 CYCLOBENZAPRINE HCL Inactive VITAMIN D3 41489 UNIT ORAL CAPSULE 2 CAPS PO WEEKLY VITAMIN D3 70668 UNIT ORAL CAPSULE CHOLECALCIFEROL Inactive FIORICET 50-300-40 MG ORAL CAPSULE take 1 tab po qday prn migraines. FIORICET 50-300-40 MG ORAL CAPSULE 745439 BUTALBITAL-APAP- CAFFEINE Inactive FLONASE 50 MCG/ACT NASAL SUSPENSION 1 spray each nostril twice daily for allergies and runny nose FLONASE 50 MCG/ACT NASAL SUSPENSION 3963519 FLUTICASONE PROPIONATE Inactive LORATADINE 10 MG ORAL TABLET 1 tablet by mouth daily for congestion and allergies. LORATADINE 10 MG ORAL TABLET 074135 LORATADINE Inactive NITROSTAT 0.4 MG SUBLINGUAL TABLET SUBLINGUAL PRN NITROSTAT 0.4 MG SUBLINGUAL TABLET SUBLINGUAL 477685 NITROGLYCERIN Inactive GUAIFENESIN ER 600 MG ORAL TABLET EXTENDED RELEASE 12 HOUR 1 tab po q am 2016 GUAIFENESIN ER 600 MG ORAL TABLET EXTENDED RELEASE 12 HOUR GUAIFENESIN Inactive CYCLOBENZAPRINE HCL 10 MG ORAL TABLET 1 po TID PRN muscle spasm/pain for 10 days CYCLOBENZAPRINE HCL 10 MG ORAL TABLET 312260 CYCLOBENZAPRINE HCL Inactive TOPIRAMATE 50 MG ORAL TABLET take 1 tab po BID for migraines. TOPIRAMATE 50 MG ORAL TABLET 273711 TOPIRAMATE Inactive PREDNISONE 20 MG ORAL TABLET two tabs by mouth today, then one tab by mouth days two and three PREDNISONE 20 MG ORAL TABLET 843374 PREDNISONE Inactive ZITHROMAX 250 MG ORAL TABLET 2 po today, then 1 po q days 2-5 ZITHROMAX 250 MG ORAL TABLET 857152 AZITHROMYCIN Inactive TERBINAFINE HCL 250 MG ORAL TABLET 1 tab po qday for foot infection TERBINAFINE HCL 250 MG ORAL TABLET 121922 TERBINAFINE HCL Inactive KEFLEX 500 MG ORAL CAPSULE 1 po TID x 10 days KEFLEX 500 MG ORAL CAPSULE 107618 CEPHALEXIN Inactive BACTRIM DS 800-160 MG ORAL TABLET 1 tab by mouth twice daily 2015 BACTRIM DS 800-160 MG ORAL TABLET 101381 TRIMETHOPRIM- SULFAMETHOXAZOLE Inactive PREDNISONE 20 MG ORAL TABLET take 3 tabs daily for 3 days, 2 tabs daily for 3 days, 1 tab daily for 3 days, 1/2 tab daily for 4 days PREDNISONE 20 MG ORAL TABLET 488580 PREDNISONE Inactive AZITHROMYCIN 250 MG ORAL TABLET 2 po qd x 1 day, then 1 po qd x 4 days 09/20 AZITHROMYCIN 250 MG ORAL TABLET 483767 AZITHROMYCIN Inactive SINGULAIR 10 MG ORAL TABLET 1 po qday for allergies. SINGULAIR 10 MG ORAL TABLET 605152 MONTELUKAST SODIUM Inactive Advance Directives Directive Description [...] AUTO - Chemistry sodium, serum 142 mmol/L 602-602 3022/07/17 carbon dioxide, venous blood 28.2 mmol/L 21.0-32.0 [...] % 11.0-15.0 platelet count 185 THOUSAND/UL 10*3/mm3 727-071 9295/04/14 mean platelet volume 10.9 fL 7.5-12.5 Lab Report: HGBA1C, Basic Metabolic Panel - Chemistry hemoglobin A1C, blood, as % of total hemoglobin 6.9 % 4.3-6.0 sodium, serum 139 mmol/L 724-973 9485/01/04 potassium, serum 3.9 mmol/L 3.5-5.2 chloride, serum 103 mmol/L 98-107 carbon dioxide, venous blood 26.9 mmol/L 21.0-32.0 blood glucose 106 mg/dL 65-110 calcium, serum 9.0 mg/dL 8.5-10.1 urea nitrogen, blood 20 mg/dL 7-18 creatinine, serum 1.46 mg/dL 0.60-1.30 Lab Report: LIPID PANEL, TSH/899, T4, FREE/866 - Chemistry cholesterol, serum 220 mg/dL 881-837 4492/04/14 HDL cholesterol, serum 30 mg/dL > OR=40 [...] 1.80 ng/mL 0.00-4.00 Lab Report: VITAMIN D, 25-HYDROXY/78063 - Chemistry vitamin D 25-hydroxy, serum 25 ng/mL 30-100 Office Visit: Confusion, dizziness after fall - Basic LDL target level 130 mg/dL Office Visit: Confusion, dizziness after fall - Chemistry HDL cholesterol, serum, target level 40 mg/dL triglyceride, target level 150 mg/dL cholesterol, target level 200 mg/dL Encounters Code Encounter Date Provider Facility CPT-45498 Level 4 Est. Patient 13:07:39 GAS DESULFURIZER Robbie Busby MD [facility] CPT-36019 Level 4 Est. Patient 15:23:44 GAS DESULFURIZER Desmond Diaz [facility] CPT-71103 Level 3 Est. Patient 15:40:49 CDT Robbie Busby MD [facility] CPT-93982 Level 4 Est. Patient 15:18:19 CDT Robbie Busby MD [facility] CPT-40409 Level 3 Est. Patient 09:00:37 CDT Rober Rodríguez [facility] CPT-54078 Level 3 Est. Patient 16:07:10 CDT Robbie Busby MD [facility] CPT-66311 Level 4 Est. Patient 11:56:16 CDT Erin Garsia [facility] CPT-13265 Level 3 Est. Patient 17:48:02 CDT Robbie Busby MD [facility] CPT-01929 Level 4 Est. Patient 12:00:49 GAS DESULFURIZER Rober Rodríguez [facility] CPT-08592 Level 3 Est. Patient 09:16:37 CDT Robbie Busby MD [facility] CPT-54987 Level 3 Est. Patient 19:38:43 CDT Robbie Busby MD [facility] CPT-88787 Level 3 Est. Patient 11:53:38 CDT Robbie Busby MD [facility] CPT-66180 Level 4 Est. Patient 12:52:22 CDT Rober Rodríguez [facility] CPT-84599 Level 4 Est. Patient 22:55:17 CDT Robbie Busby MD [facility] CPT-86541 Level 3 Est. Patient 12:38:24 CDT Desmond Diaz [facility] CPT-68487 Level 4 Est. Patient 11:25:03 GAS DESULFURIZER Robbie Busby MD [facility] CPT-09442 Level 4 Est. Patient 14:50:10 CDT Robbie Busby MD [facility] CPT-45025 Level 4 Est. Patient 23:30:43 CDT Rbobie Busby MD [facility] CPT-68275 Level 4 Est. Patient 10:30:43 CDT Robbie Busby MD [facility] CPT-56702 Level 3 Est. Patient 17:08:12 CDT Alex Shaw [facility] CPT-24876 Level 4 Est. Patient 17:51:38 CDT Robbie Busby MD [facility] CPT-00416 Level 4 Est. Patient 14:00:21 CDT Robbie Busby MD [facility] CPT-04944 Level 4 Est. Patient 12:46:48 CDT Robbie Busby MD [facility] CPT-21108 Level 4 Est. Patient 13:34:33 CDT Robbie Busby MD [facility] CPT-94636 Level 4 Est. Patient 16:58:28 CDT Robbie Busby MD [facility] CPT-85159 Level 3 Est. Patient 19:36:53 CDT Alex Shaw [facility] CPT-80929 Level 3 Est. Patient 12:58:15 CDT Robbie Busby MD [facility] Procedures Code Procedure Name Date Entry Date Standard Description CPT-J1071 Depo Testosterone 200mg 16:10:29 GAS DESULFURIZER CPT-54206 Abx/Therapy Injection 16:10:29 GAS DESULFURIZER CPT-J1071 Depo Testosterone 200mg 16:13:47 GAS DESULFURIZER CPT-13378 Abx/Therapy Injection 16:13:46 GAS DESULFURIZER CPT-J1071 Depo Testosterone 200mg 15:33:58 GAS DESULFURIZER CPT-72508 Abx/Therapy Injection 15:33:58 GAS DESULFURIZER CPT-J1071 Depo Testosterone 200mg 09:38:36 GAS DESULFURIZER CPT-46690 Abx/Therapy Injection 09:38:36 GAS DESULFURIZER CPT-J1071 Depo Testosterone 200mg 10:22:56 GAS DESULFURIZER CPT-87347 Abx/Therapy Injection 10:22:56 GAS DESULFURIZER CPT-J1071 Depo Testosterone 200mg 15:40:23 CDT CPT-22856 Abx/Therapy Injection 15:40:23 CDT CPT-J1071 Depo Testosterone 200mg 14:20:43 CDT CPT-15489 Abx/Therapy Injection 14:20:43 CDT CPT-J1071 Depo Testosterone 200mg 14:17:22 CDT CPT-72198 Abx/Therapy Injection 14:17:22 CDT CPT-J1071 Depo Testosterone 200mg 09:03:53 CDT CPT-82547 Abx/Therapy Injection 09:03:53 CDT CPT-G0439 [facility] Annual Wellness Exam 16:47:44 CDT CPT-J1071 Depo Testosterone 200mg 09:06:28 CDT CPT-60937 Abx/Therapy Injection 09:06:28 CDT CPT-J1071 Depo Testosterone 200mg 08:30:01 CDT CPT-33199 Abx/Therapy Injection 08:30:01 CDT CPT-J1071 Depo Testosterone 200mg 08:24:00 CDT CPT-69163 Abx/Therapy Injection 08:24:00 CDT CPT-27374 Venipuncture Draw Fee 14:39:06 CDT CPT-51504 Ribs unilateral 2V - XRAY USE ONLY 12:10:11 CDT CPT-11378 First Vx - Ix admin for Medicare patients 16:32:53 CDT CPT-58899 Boostrix Intramuscular Suspension 5-2.5-18.5 16:32:53 CDT CPT-66480 TB Skin Test 11:42:28 CDT CPT-62018 Tdap 7yrs or > 11:42:28 CDT CPT-J0696 Rocephin 1000 mg (Ceftriaxone) 17:43:43 GAS DESULFURIZER CPT-J1040 Depo Medrol 80 mg (Methyl Prednisolone Acetate) 17:43: 43 GAS DESULFURIZER CPT-J1100 Decadron 8mg (Dexamethasone) 17:43:42 GAS DESULFURIZER CPT-32981 Abx/Therapy Injection 17:43:42 GAS DESULFURIZER CPT-16325 Abx/Therapy Injection 17:43:42 GAS DESULFURIZER CPT-J1040 Depo Medrol 80 mg (Methyl Prednisolone Acetate) 09:43: 34 GAS DESULFURIZER CPT-J1100 Decadron 8mg (Dexamethasone) 09:43:34 GAS DESULFURIZER CPT-J0696 Rocephin 1gm Inj Solr 09:43:34 GAS DESULFURIZER CPT-56959 Wound Culture - LAB USE ONLY 14:00:21 CDT CPT-I/D I/D Abscess 09:16:37 CDT CPT-85661 Venipuncture Draw Fee 15:20:23 CDT CPT-60316 Microalbumin - LAB USE ONLY 16:02:19 CDT CPT-60713 CBC - LAB USE ONLY 16:02:19 CDT CPT-69511 Venipuncture Draw Fee 16:02:19 CDT CPT-G0438 Initial Annual Wellness Exam 08:10:28 CDT CPT-91284 Venipuncture Draw Fee 13:07:17 CDT CPT-G0008 Administration of Influenza Virus Vaccine 16:09:59 CDT CPT-99742 Fluzone Quadrivalent Intramuscular Suspension 0.5 ML 16: 09:59 CDT CPT-73535 Spec Collection and Handling Fee 15:05:50 CDT
--- OUTSIDE RECORDS SUMMARY | 2018-04-18 14:58 | XMS REPORT | Clinical Summary ---
Author Author Admin, AKUA Organization [facility] Address Unknown Phone Unavailable Allergies, Adverse Reactions, [...] muscle spasm/pain for 10 days CYCLOBENZAPRINE HCL 62933637639 Active JONATHAN Moncada Active GUAIFENESIN 600 MG [id number] 1 tab po q am GUAIFENESIN 65574914102 Active Rober Rodríguez APRN Active FLUTICASONE PROPIONATE 50 MCG/ACT SUSP 2 sprays per nostril bid for 1 week, then 1 spray bid FLUTICASONE PROPIONATE 33964297996 Active Rober Rodríguez APRN Active HYDRALAZINE HCL 25 MG ORAL TABS Take 1 tab BID. HYDRALAZINE HCL 00887912982 Active Rober Rodríguez APRN Active VITAMIN D3 63740 UNIT ORAL TABS 2 po weekly CHOLECALCIFEROL 66491568647 Active JONATHAN Moncada Active OXYCODONE HCL ER 10 MG ORAL T12A 1 tab po 3 times qd. OXYCODONE HCL 19190983827 Active Robbie Busby MD Active NITROSTAT 0.4 MG SUBL PRN NITROGLYCERIN 17884778323 No Longer Active Robbie Busby MD Active LORATADINE 10 MG TABS 1 tablet by mouth daily for congestion and allergies. LORATADINE 85597589816 No Longer Active Robbie Busby MD Active FLONASE 50 MCG/ACT SUSP 1 spray each nostril twice daily for allergies and runny nose FLUTICASONE PROPIONATE 66725498889 No Longer Active Robbie Busby MD Active FIORICET 50-300-40 MG ORAL CAPS take 1 tab po qday prn migraines. [id number] 67548107924 No Longer Active Robbie Busby MD Active VITAMIN D3 43561 UNIT CAPS 2 CAPS PO WEEKLY CHOLECALCIFEROL 16446600872 No Longer Active Robbie Busby MD Active CYCLOBENZAPRINE HCL 10 MG TABS 1 tablet by mouth three times daily as needed for muscle spasm/pain for 10 days CYCLOBENZAPRINE HCL 31619133037 No Longer Active Robbie Busby MD Active PREDNISONE 20 MG TAB take 3 tabs daily for 3 days, 2 tabs daily for 3 days, 1 tab daily for 3 days, 1/2 tab daily for 4 days PREDNISONE 90499872902 No Longer Active Erin Garsia APRN Active CLONIDINE HCL 0.2 MG ORAL TABS 1 TAB BY MOUTH EVERY 8 HOURS 12/29 CLONIDINE HCL 46397404083 No Longer Active Erin Garsia APRN Active MECLIZINE HCL 25 MG TAB one 4 times a day as needed for dizziness MECLIZINE HCL 87249988833 No Longer Active Erin Garsia APRN Active SPIRONOLACTONE 25 MG TAB 4 tablets by mouth daily SPIRONOLACTONE 79734128133 No Longer Active Erin Garsia APRN Active LEVAQUIN 500 MG TAB 1 tablet by mouth daily for 7 days LEVOFLOXACIN 07177306513 No Longer Active Erin Garsia APRN Active BACTRIM DS 800-160 MG TAB 1 tab by mouth twice daily TRIMETHOPRIM-SULFAMETHOXAZOLE 75099073413 No Longer Active Robbie Busby MD Active HYDRALAZINE HCL 50 MG ORAL TABS TWO BY MOUTH THREE TIMES DAILY HYDRALAZINE HCL 67386091550 No Longer Active Jillina Frazell 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 HYDROCODONE-ACETAMINOPHEN 5-325 MG TABS 1 tab by mouth BID prn back pain 2013 HYDROCODONE-ACETAMINOPHEN 27098978474 No Longer Active Jillina Frazell 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 HYDROCHLOROTHIAZIDE TABS Take one by mouth daily HYDROCHLOROTHIAZIDE TABS 06695013798 No Longer Active Jillina Frazell 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 LAMISIL 125 MG ORAL PACK 1 TAB PO DAILY TERBINAFINE HCL 01611648216 No Longer Active 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 TRILEPTAL 150 MG ORAL TABS 1 TAB PO Q HS OXCARBAZEPINE 31714847114 No Longer Active Jillina Frazell 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 BETADINE 10 % EXT SOLN wash with solution to treat follicultis POVIDONE-IODINE 45498425660 No Longer Active Jillina Frazell 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 NYSTATIN 025466 UNIT/ML M/T SUSP 5mL po QID x 10 days NYSTATIN 98097940648 No Longer Active Erin Garsia APRN Active PREDNISONE 20 MG TAB 1 tablet twice daily for 2 days, then 1 tablet once daily for 2 days PREDNISONE 47317917487 No Longer Active Robbie Busby MD Active CEFDINIR 300 MG ORAL CAPS Take 1 cap po bid x 10 days CEFDINIR 72842699790 No Longer Active Robbie Busby MD Active AMLODIPINE BESYLATE 10 MG TABS 1 tablet by mouth daily AMLODIPINE BESYLATE 76861255476 Active Robbie Busby MD Active CARVEDILOL 25 MG TABS 1 & 1/2 TAB po BID CARVEDILOL 05330154845 Active Robbie Busby MD Active NEXIUM 40 MG CPDR 1 cap by mouth daily ESOMEPRAZOLE MAGNESIUM 83343118977 Active Robbie Busby MD Active PROTONIX 40 MG SOLR 1 po qday for acid reflux PANTOPRAZOLE SODIUM 11433907730 No Longer Active Gali Raida Active KEFLEX 500 MG CAP 1 po TID x 10 days CEPHALEXIN 82707394574 No Longer Active Robbie Busby MD Active TOPIRAMATE 50 MG ORAL TABS take 1 tab po BID for migraines. TOPIRAMATE 68862669431 Active Robbie Busby MD Active TEMAZEPAM 15 MG ORAL CAPS 1 TAB PO Q HS TEMAZEPAM 92240099362 Active Robbie Busby MD Active ALPRAZOLAM 2 MG ORAL TABS 1 TAB PO BID ALPRAZOLAM 58091279628 Active Robbie Busby MD Active FENOFIBRATE 145 MG TABS Take one by mouth daily FENOFIBRATE 14043704732 No Longer Active Robbie Busby MD Active SPIRONOLACTONE 50 MG TABS 1 tablet by mouth twice a day SPIRONOLACTONE 62213192813 No Longer Active Robbie Busby MD Active HYDRALAZINE HCL 25 MG TABS 1 tablet by mouth tid for hypertension HYDRALAZINE HCL 61939094991 No Longer Active Robbie Busby MD Active VIIBRYD 40 MG TABS take 1 tab po qday for depression. VILAZODONE HCL 42593134075 No Longer Active Robbie Busby MD Active TERBINAFINE HCL 250 MG TABS 1 tab po qday for foot infection 2014 TERBINAFINE HCL 34783702730 No Longer Active Robbie Busby MD Active GABAPENTIN 300 MG CAPS 1 po q hs for nerve pain GABAPENTIN 17466682181 Active Robbie Busby MD Active CHERATUSSIN AC 100-10 MG/5ML ORAL SOLN 7.5 mL PO q 4-6 hrs PRN cough GUAIFENESIN-CODEINE 43287029353 No Longer Active Robbie Busby MD Active AZITHROMYCIN 250 MG ORAL TABS 2 tablets PO today---then, 1 tablet PO daily x 4 more days (and 1 optional refill) AZITHROMYCIN 24522871580 No Longer Active Robbie Busby MD Active NORVASC 10 MG TAB 1 tablet by mouth daily AMLODIPINE BESYLATE 44576071326 No Longer Active Alex ALVAREZ Active IMDUR 60 MG TAB CR take 1 tab po qday for blood pressure ISOSORBIDE MONONITRATE Active Robbie Busby MD Active ISOSORBIDE DINITRATE 30 MG TABS Take one by mouth daily ISOSORBIDE DINITRATE 33066969921 No Longer Active Robbie Busby MD Active VIIBRYD 40 MG TABS 1 TA B PO DAILY VILAZODONE HCL 19309377383 Active Robbie Busby MD Active ZITHROMAX 250 MG TAB 2 po today, then 1 po q days 2-5 AZITHROMYCIN 97247494086 No Longer Active Robbie Busby MD Active [id number] 0.3 MG/24HR PTWK apply 2 patches q week for HTN CLONIDINE HCL 96836931258 Active Robbie Busby MD Active DOXAZOSIN MESYLATE 4 MG TABS Take one by mouth daily DOXAZOSIN MESYLATE 42656759186 Active Robbie Busby MD Active TOPROL XL 200 MG [id number] Take one by mouth daily METOPROLOL SUCCINATE 38683061020 Active Robbie Busby MD Active VENLAFAXINE HCL ER 150 MG [id number] Take one by mouth daily VENLAFAXINE HCL 34872382026 Active Robbie Busby MD Active LIPITOR 40 MG TABS Take one by mouth daily ATORVASTATIN CALCIUM 83617293291 Active Robbie Busby MD Active ISOSORBIDE DINITRATE 30 MG TABS Take one by mouth daily ISOSORBIDE DINITRATE 30 MG TABS 716277 ISOSORBIDE DINITRATE Inactive NORVASC 10 MG TAB 1 tablet by mouth daily NORVASC 10 MG TAB 227693 AMLODIPINE BESYLATE Inactive AZITHROMYCIN 250 MG ORAL TABS 2 tablets PO today---then, 1 tablet PO daily x 4 more days (and 1 optional refill) AZITHROMYCIN 250 MG ORAL TABS 5073920 AZITHROMYCIN Inactive CHERATUSSIN AC 100-10 MG/5ML ORAL SOLN 7.5 mL PO q 4-6 hrs PRN cough CHERATUSSIN AC 100-10 MG/5ML ORAL SOLN 550477 GUAIFENESIN- CODEINE Inactive VIIBRYD 40 MG TABS take 1 tab po qday for depression. VIIBRYD 40 MG TABS VILAZODONE HCL Inactive HYDRALAZINE HCL 25 MG TABS 1 tablet by mouth tid for hypertension HYDRALAZINE HCL 25 MG TABS 047235 HYDRALAZINE HCL Inactive SPIRONOLACTONE 50 MG TABS 1 tablet by mouth twice a day SPIRONOLACTONE 50 MG TABS 462534 SPIRONOLACTONE Inactive FENOFIBRATE 145 MG TABS Take one by mouth daily FENOFIBRATE 145 MG TABS 062479 FENOFIBRATE Inactive PROTONIX 40 MG SOLR 1 po qday for acid reflux PROTONIX 40 MG SOLR 532470 PANTOPRAZOLE SODIUM Inactive CEFDINIR 300 MG ORAL CAPS Take 1 cap po bid x 10 days CEFDINIR 300 MG ORAL CAPS 652480 CEFDINIR Inactive PREDNISONE 20 MG TAB 1 tablet twice daily for 2 days, then 1 tablet once daily for 2 days PREDNISONE 20 MG TAB 432484 PREDNISONE Inactive NYSTATIN 252650 UNIT/ML M/T SUSP 5mL po QID x 10 days NYSTATIN 891677 UNIT/ML M/T SUSP 320742 NYSTATIN Inactive BETADINE 10 % EXT SOLN wash with solution to treat follicultis BETADINE 10 % EXT SOLN 3724203 POVIDONE-IODINE Inactive TRILEPTAL 150 MG ORAL TABS 1 TAB PO Q HS TRILEPTAL 150 MG ORAL TABS 544237 OXCARBAZEPINE Inactive LAMISIL 125 MG ORAL PACK 1 TAB PO DAILY LAMISIL 125 MG ORAL PACK TERBINAFINE HCL Inactive HYDROCHLOROTHIAZIDE TABS Take one by mouth daily HYDROCHLOROTHIAZIDE TABS HYDROCHLOROTHIAZIDE TABS Inactive HYDROCODONE-ACETAMINOPHEN 5-325 MG TABS 1 tab by mouth BID prn back pain 2013 HYDROCODONE-ACETAMINOPHEN 5-325 MG TABS 297184 HYDROCODONE -ACETAMINOPHEN Inactive HYDRALAZINE HCL 50 MG ORAL TABS TWO BY MOUTH THREE TIMES DAILY HYDRALAZINE HCL 50 MG ORAL TABS 715413 HYDRALAZINE HCL Inactive LEVAQUIN 500 MG TAB 1 tablet by mouth daily for 7 days LEVAQUIN 500 MG TAB 410136 LEVOFLOXACIN Inactive SPIRONOLACTONE 25 MG TAB 4 tablets by mouth daily SPIRONOLACTONE 25 MG TAB 069892 SPIRONOLACTONE Inactive MECLIZINE HCL 25 MG TAB one 4 times a day as needed for dizziness MECLIZINE HCL 25 MG TAB 790518 MECLIZINE HCL Inactive CLONIDINE HCL 0.2 MG ORAL TABS 1 TAB BY MOUTH EVERY 8 HOURS 12/29 CLONIDINE HCL 0.2 MG ORAL TABS 066431 CLONIDINE HCL Inactive CYCLOBENZAPRINE HCL 10 MG TABS 1 tablet by mouth three times daily as needed for muscle spasm/pain for 10 days CYCLOBENZAPRINE HCL 10 MG TABS 280253 CYCLOBENZAPRINE HCL Inactive VITAMIN D3 62446 UNIT CAPS 2 CAPS PO WEEKLY VITAMIN D3 66407 UNIT CAPS CHOLECALCIFEROL Inactive FIORICET 50-300-40 MG ORAL CAPS take 1 tab po qday prn migraines. FIORICET 50-300-40 MG ORAL CAPS 940852 [id number] Inactive FLONASE 50 MCG/ACT SUSP 1 spray each nostril twice daily for allergies and runny nose FLONASE 50 MCG/ACT SUSP 0372864 FLUTICASONE PROPIONATE Inactive LORATADINE 10 MG TABS 1 tablet by mouth daily for congestion and allergies. LORATADINE 10 MG TABS 510424 LORATADINE Inactive NITROSTAT 0.4 MG SUBL PRN NITROSTAT 0.4 MG SUBL 684844 NITROGLYCERIN Inactive ZITHROMAX 250 MG TAB 2 po today, then 1 po q days 2-5 ZITHROMAX 250 MG TAB 0828218 AZITHROMYCIN Inactive TERBINAFINE HCL 250 MG TABS 1 tab po qday for foot infection 2014 TERBINAFINE HCL 250 MG TABS 124014 TERBINAFINE HCL Inactive KEFLEX 500 MG CAP 1 po TID x 10 days KEFLEX 500 MG CAP 504109 CEPHALEXIN Inactive BACTRIM DS 800-160 MG TAB 1 tab by mouth twice daily BACTRIM DS 800-160 MG TAB 353567 TRIMETHOPRIM-SULFAMETHOXAZOLE Inactive PREDNISONE 20 MG TAB take 3 tabs daily for 3 days, 2 tabs daily for 3 days, 1 tab daily for 3 days, 1/2 tab daily for 4 days PREDNISONE 20 MG TAB 768212 PREDNISONE Inactive Advance Directives Directive Description Start [...] AUTO - Chemistry sodium, serum 142 mmol/L 199-191 5360/07/17 carbon dioxide, venous blood 28.2 mmol/L 21.0-32.0 [...] % 11.0-15.0 platelet count 185 THOUSAND/UL 10*3/mm3 578-737 0752/04/14 mean platelet volume 10.9 fL 7.5-12.5 Lab Report: LIPID PANEL, TSH/899, T4, FREE/866 - Chemistry cholesterol, serum 220 mg/dL 581-767 3600/04/14 HDL cholesterol, serum 30 mg/dL > OR=40 triglyceride, serum, fasting 466 mg/dL <150 LDL cholesterol, serum SEE NOTE mg/dL (calc) mg/dL <130 cholesterol/HDL ratio, serum 7.3 (calc) < OR=5.0 Lab Report: MICROALB/CREAT W/RATIO - Chemistry albumin/creatinine ratio, urine < 30 mg/g mg/g{creat} 0-29 Lab Report: MICROALB/CREAT W/RATIO - Lab microalbumin, urine 80 0-19 Lab Report: VITAMIN D, 25-HYDROXY/70192 - Chemistry vitamin D 25-hydroxy, serum 25 ng/mL 30-100 Office Visit: Confusion, dizziness after fall - Basic LDL target level 130 mg/dL Office Visit: Confusion, dizziness after fall - Chemistry HDL cholesterol, serum, target level 40 mg/dL triglyceride, target level 150 mg/dL cholesterol, target level 200 mg/dL Encounters Code Encounter Date Provider Facility CPT-42935 Level 3 Est. Patient 09:00:37 CDT Rober Rodríguez [facility] CPT-51793 Level 3 Est. Patient 16:07:10 CDT Robbie Busby MD [facility] CPT-22258 Level 4 Est. Patient 11:56:16 CDT Erin Garsia [facility] CPT-69504 Level 3 Est. Patient 17:48:02 CDT Robbie Busby MD [facility] CPT-47053 Level 4 Est. Patient 12:00:49 [employer] Rober Rodríguez [facility] CPT-54306 Level 3 Est. Patient 09:16:37 CDT Robbie Busby MD [facility] CPT-43139 Level 3 Est. Patient 19:38:43 CDT Robbie Busby MD [facility] CPT-15394 Level 3 Est. Patient 11:53:38 CDT Robbie Busby MD [facility] CPT-10870 Level 4 Est. Patient 12:52:22 CDT Rober Rodríguez [facility] CPT-19255 Level 4 Est. Patient 22:55:17 CDT Robbie Busby MD [facility] CPT-64312 Level 3 Est. Patient 12:38:24 CDT Desmond Diaz DO [facility] CPT-93125 Level 4 Est. Patient 11:25:03 [employer] Robbie Busby MD [facility] CPT-04318 Level 4 Est. Patient 14:50:10 CDT Robbie Busby MD [facility] CPT-83651 Level 4 Est. Patient 23:30:43 CDT Robbie Busby MD [facility] CPT-66494 Level 4 Est. Patient 10:30:43 CDT Robbie Busby MD [facility] CPT-34543 Level 3 Est. Patient 17:08:12 CDT Alex Shaw [facility] CPT-01032 Level 4 Est. Patient 17:51:38 CDT Robbie Busby MD [facility] CPT-47235 Level 4 Est. Patient 14:00:21 CDT Robbie Busby MD [facility] CPT-21550 Level 4 Est. Patient 12:46:48 CDT Robbie Busby MD [facility] CPT-69995 Level 4 Est. Patient 13:34:33 CDT Robbie Busby MD [facility] CPT-23691 Level 4 Est. Patient 16:58:28 CDT Robbie Busby MD [facility] CPT-24841 Level 3 Est. Patient 19:36:53 CDT Alex Shaw [facility] CPT-96012 Level 3 Est. Patient 12:58:15 CDT Robbie Busby MD [facility] Procedures Code Procedure Name Date Entry Date Standard Description CPT-45279 Venipuncture Draw Fee 14:39:06 CDT CPT-96969 Ribs unilateral 2V - XRAY USE ONLY 12:10:11 CDT CPT-69678 First Vx - Ix admin for Medicare patients 16:32:53 CDT CPT-12129 Boostrix Intramuscular Suspension 5-2.5-18.5 16:32:53 CDT CPT-84190 TB Skin Test 11:42:28 CDT CPT-66427 Tdap 7yrs or > 11:42:28 CDT CPT-J0696 Rocephin 1000 mg (Ceftriaxone) 17:43:43 [employer] CPT-J1040 Depo Medrol 80 mg (Methyl Prednisolone Acetate) 17:43: 43 [employer] CPT-J1100 Decadron 8mg (Dexamethasone) 17:43:42 [employer] CPT-26461 Abx/Therapy Injection 17:43:42 [employer] CPT-16924 Abx/Therapy Injection 17:43:42 [employer] CPT-J1040 Depo Medrol 80 mg (Methyl Prednisolone Acetate) 09:43: 34 [employer] CPT-J1100 Decadron 8mg (Dexamethasone) 09:43:34 [employer] CPT-J0696 Rocephin 1gm Inj Solr 09:43:34 [employer] CPT-17489 Wound Culture - LAB USE ONLY 14:00:21 CDT CPT-I/D I/D Abscess 09:16:37 CDT CPT-62303 Venipuncture Draw Fee 15:20:23 CDT CPT-04853 Microalbumin - LAB USE ONLY 16:02:19 CDT CPT-68600 CBC - LAB USE ONLY 16:02:19 CDT CPT-11048 Venipuncture Draw Fee 16:02:19 CDT CPT-G0438 Initial Annual Wellness Exam 08:10:28 CDT CPT-75482 Venipuncture Draw Fee 13:07:17 CDT CPT-G0008 Administration of Influenza Virus Vaccine 16:09:59 CDT CPT-95451 Fluzone Quadrivalent Intramuscular Suspension 0.5 ML 16: 09:59 CDT CPT-90882 Spec Collection and Handling Fee 15:05:50 CDT
--- OUTSIDE RECORDS SUMMARY | 2018-04-18 15:01 | XMS REPORT | Clinical Summary ---
Author Author Admin, [facility] Organization [facility] Address Unknown Phone Unavailable Allergies, [...] Name ND Status Provider Patient Instruction NYSTATIN 236829 UNIT/ML M/T SUSP 5mL po QID x 10 days NYSTATIN 80477375356 No Longer Active Erin Garsia APRN Active PREDNISONE 20 MG TAB 1 tablet twice daily for 2 days, then 1 tablet once daily for 2 days PREDNISONE 23424808428 No Longer Active Robbie Busby MD Active CEFDINIR 300 MG ORAL CAPS Take 1 cap po bid x 10 days CEFDINIR 78124310538 No Longer Active Robbie Busby MD Active AMLODIPINE BESYLATE 10 MG TABS 1 tablet by mouth daily AMLODIPINE BESYLATE 80612862253 Active Robbie Busby MD Active CARVEDILOL 25 MG TABS 1 & 1/2 TAB po BID CARVEDILOL 25415381780 Active Robbie Busby MD Active VITAMIN D3 17274 UNIT CAPS 2 CAPS PO WEEKLY CHOLECALCIFEROL 55995955329 Active Erin Garsia DORMITORY COUNSELOR Active NEXIUM 40 MG CPDR 1 cap by mouth daily ESOMEPRAZOLE MAGNESIUM 45217685571 Active Galileonila Negro Active PROTONIX 40 MG SOLR 1 po qday for acid reflux PANTOPRAZOLE SODIUM 71264745145 No Longer Active Gali Raida Active BETADINE 10 % EXT SOLN wash with solution to treat follicultis POVIDONE-IODINE 97549853880 Active Robbie Busby MD Active KEFLEX 500 MG CAP 1 po TID x 10 days CEPHALEXIN 62481599102 No Longer Active Robbie Busby MD Active FIORICET 50-300-40 MG ORAL CAPS take 1 tab po qday prn migraines. [id number] 06030530421 Active Robbie Busby MD Active TOPIRAMATE 50 MG ORAL TABS take 1 tab po BID for migraines. TOPIRAMATE 18256022541 Active Robbie Busby MD Active HYDRALAZINE HCL 50 MG ORAL TABS TWO BY MOUTH THREE TIMES DAILY HYDRALAZINE HCL 76382332561 Active Robbie Busby MD Active MECLIZINE HCL 25 MG TAB one 4 times a day as needed for dizziness MECLIZINE HCL 23921360262 Active Robbie Busby MD Active TRILEPTAL 150 MG ORAL TABS 1 TAB PO Q HS OXCARBAZEPINE 83714692477 Active Robbie Busby MD Active TEMAZEPAM 15 MG ORAL CAPS 1 TAB PO Q HS TEMAZEPAM 68729006827 Active Robbie Busby MD Active ALPRAZOLAM 2 MG ORAL TABS 1 TAB PO BID ALPRAZOLAM 73797903816 Active Robbie Busby MD Active FENOFIBRATE 145 MG TABS Take one by mouth daily FENOFIBRATE 90215321478 No Longer Active Robbie Busby MD Active LAMISIL 125 MG ORAL PACK 1 TAB PO DAILY TERBINAFINE HCL 67985173735 Active Robbie Busby MD Active SPIRONOLACTONE 50 MG TABS 1 tablet by mouth twice a day SPIRONOLACTONE 82810389640 No Longer Active Robbie Busby MD Active HYDRALAZINE HCL 25 MG TABS 1 tablet by mouth tid for hypertension HYDRALAZINE HCL 04817613476 No Longer Active Robbie Busby MD Active VIIBRYD 40 MG TABS take 1 tab po qday for depression. VILAZODONE HCL 09304297535 No Longer Active Robbie Busby MD Active TERBINAFINE HCL 250 MG TABS 1 tab po qday for foot infection 2014 TERBINAFINE HCL 86851303841 No Longer Active Robbie Busby MD Active GABAPENTIN 300 MG CAPS 1 po q hs for nerve pain GABAPENTIN 91050797377 Active Robbie Busby MD Active FLONASE 50 MCG/ACT SUSP 1 spray each nostril twice daily for allergies and runny nose FLUTICASONE PROPIONATE 10740152559 Active Robbie Busby MD Active CHERATUSSIN AC 100-10 MG/5ML ORAL SOLN 7.5 mL PO q 4-6 hrs PRN cough GUAIFENESIN-CODEINE 90218857301 No Longer Active Robbie Busby MD Active AZITHROMYCIN 250 MG ORAL TABS 2 tablets PO today---then, 1 tablet PO daily x 4 more days (and 1 optional refill) AZITHROMYCIN 89735198086 No Longer Active Robbie Busby MD Active CLONIDINE HCL 0.2 MG ORAL TABS 1 TAB BY MOUTH EVERY 8 HOURS CLONIDINE HCL 11017773761 Active Robbie Busby MD Active HYDROCHLOROTHIAZIDE TABS Take one by mouth daily HYDROCHLOROTHIAZIDE TABS 27177189807 Active Alex ALVAREZ Active NORVASC 10 MG TAB 1 tablet by mouth daily AMLODIPINE BESYLATE 28029052370 No Longer Active Alex ALVAREZ Active IMDUR 60 MG TAB CR take 1 tab po qday for blood pressure ISOSORBIDE MONONITRATE Active Robbie Busby MD Active ISOSORBIDE DINITRATE 30 MG TABS Take one by mouth daily ISOSORBIDE DINITRATE 07366940028 No Longer Active Robbie Busby MD Active VIIBRYD 40 MG TABS 1 TA B PO DAILY VILAZODONE HCL 73648899342 Active Erin Garsia APRN Active LORATADINE 10 MG TABS 1 tablet by mouth daily for congestion and allergies. LORATADINE 17859288758 Active Robbie Busby MD Active ZITHROMAX 250 MG TAB 2 po today, then 1 po q days 2-5 AZITHROMYCIN 23473165979 No Longer Active Robbie Busby MD Active HYDROCODONE-ACETAMINOPHEN 5-325 MG TABS 1 tab by mouth BID prn back pain 2013 HYDROCODONE-ACETAMINOPHEN 36898691015 Active Robbie Busby MD Active [id number]-6 0.3 MG/24HR PTWK apply 2 patches q week for HTN CLONIDINE HCL 07141249406 Active Robbie Busby MD Active NITROSTAT 0.4 MG SUBL PRN NITROGLYCERIN 87893844064 Active Robbie Busby MD Active DOXAZOSIN MESYLATE 4 MG TABS Take one by mouth daily DOXAZOSIN MESYLATE 00242949765 Active Robbie Busby MD Active TOPROL XL 200 MG VL51M-[id number] Take one by mouth daily METOPROLOL SUCCINATE 47303348534 Active Robbie Busby MD Active VENLAFAXINE HCL ER 150 MG LO09J-DON Take one by mouth daily VENLAFAXINE HCL 97842992128 Active Robbie Busby MD Active LIPITOR 40 MG TABS Take one by mouth daily ATORVASTATIN CALCIUM 39876387715 Active Robbie Busby MD Active ISOSORBIDE DINITRATE 30 MG TABS Take one by mouth daily ISOSORBIDE DINITRATE 30 MG TABS 527773 ISOSORBIDE DINITRATE Inactive NORVASC 10 MG TAB 1 tablet by mouth daily NORVASC 10 MG TAB 116548 AMLODIPINE BESYLATE Inactive AZITHROMYCIN 250 MG ORAL TABS 2 tablets PO today---then, 1 tablet PO daily x 4 more days (and 1 optional refill) AZITHROMYCIN 250 MG ORAL TABS 3122092 AZITHROMYCIN Inactive CHERATUSSIN AC 100-10 MG/5ML ORAL SOLN 7.5 mL PO q 4-6 hrs PRN cough CHERATUSSIN AC 100-10 MG/5ML ORAL SOLN 262935 GUAIFENESIN- CODEINE Inactive VIIBRYD 40 MG TABS take 1 tab po qday for depression. VIIBRYD 40 MG TABS VILAZODONE HCL Inactive HYDRALAZINE HCL 25 MG TABS 1 tablet by mouth tid for hypertension HYDRALAZINE HCL 25 MG TABS 725528 HYDRALAZINE HCL Inactive SPIRONOLACTONE 50 MG TABS 1 tablet by mouth twice a day SPIRONOLACTONE 50 MG TABS 849257 SPIRONOLACTONE Inactive FENOFIBRATE 145 MG TABS Take one by mouth daily FENOFIBRATE 145 MG TABS 223185 FENOFIBRATE Inactive PROTONIX 40 MG SOLR 1 po qday for acid reflux PROTONIX 40 MG SOLR 129928 PANTOPRAZOLE SODIUM Inactive CEFDINIR 300 MG ORAL CAPS Take 1 cap po bid x 10 days CEFDINIR 300 MG ORAL CAPS 371377 CEFDINIR Inactive PREDNISONE 20 MG TAB 1 tablet twice daily for 2 days, then 1 tablet once daily for 2 days PREDNISONE 20 MG TAB 518885 PREDNISONE Inactive NYSTATIN 108793 UNIT/ML M/T SUSP 5mL po QID x 10 days NYSTATIN 714497 UNIT/ML M/T SUSP 975063 NYSTATIN Inactive ZITHROMAX 250 MG TAB 2 po today, then 1 po q days 2-5 ZITHROMAX 250 MG TAB 1444664 AZITHROMYCIN Inactive TERBINAFINE HCL 250 MG TABS 1 tab po qday for foot infection 2014 TERBINAFINE HCL 250 MG TABS 997126 TERBINAFINE HCL Inactive KEFLEX 500 MG CAP 1 po TID x 10 days KEFLEX 500 MG CAP 070736 CEPHALEXIN Inactive Advance Directives Directive Description Start [...] Acid - Chemistry sodium, serum 139 mmol/L 297-377 1655/04/22 carbon dioxide, venous blood 29.4 mmol/L 21.0-32.0 [...] to Follow Negative Lab Report: VITAMIN D, 25-HYDROXY/76231 - Chemistry vitamin D 25-hydroxy, serum 23 ng/mL 30-100 Encounters Code Encounter Date Provider Facility CPT-96740 Level 4 Est. Patient 22:55:17 CDT Robbie Bubsy MD [facility] CPT-68169 Level 3 Est. Patient 12:38:24 CDT Desmond Diaz DO [facility] CPT-04815 Level 4 Est. Patient 11:25:03 PIPELAYER Robbie Busby MD [facility] CPT-81886 Level 4 Est. Patient 14:50:10 CDT Robbie Busby MD [facility] CPT-81734 Level 4 Est. Patient 23:30:43 CDT Robbie Busby MD [facility] CPT-76397 Level 4 Est. Patient 10:30:43 CDT Robbie Busby MD [facility] CPT-36098 Level 3 Est. Patient 17:08:12 CDT Alex ALVAREZ [facility] CPT-93433 Level 4 Est. Patient 17:51:38 CDT Robbie Busby MD [facility] CPT-01199 Level 4 Est. Patient 14:00:21 CDT Robbie Busby MD [facility] CPT-64199 Level 4 Est. Patient 12:46:48 CDT Robbie Busby MD [facility] CPT-04789 Level 4 Est. Patient 13:34:33 CDT Robbie Busby MD [facility] CPT-26996 Level 4 Est. Patient 16:58:28 CDT Robbie Busby MD [facility] CPT-80502 Level 3 Est. Patient 19:36:53 CDT Alex Shaw [facility] CPT-67731 Level 3 Est. Patient 12:58:15 CDT Robbie Busby MD [facility] Procedures Code Procedure Name Date Entry Date Standard Description CPT-G0438 Initial Annual Wellness Exam 08:10:28 CDT CPT-67402 Venipuncture Draw Fee 13:07:17 CDT CPT-G0008 Administration of Influenza Virus Vaccine 16:09:59 CDT CPT-32448 Fluzone Quadrivalent Intramuscular Suspension 0.5 ML 16: 09:59 CDT CPT-72246 Spec Collection and Handling Fee 15:05:50 CDT
--- OUTSIDE RECORDS SUMMARY | 2018-04-18 15:02 | XMS REPORT | Clinical Summary ---
Author Author Admin, [facility] Organization [facility] Address Unknown Phone Unavailable Allergies, Adverse Reactions, [...] PO q 4-6 hrs PRN cough GUAIFENESIN-CODEINE 51970269861 Active Alex ALVAREZ Active AZITHROMYCIN 250 MG ORAL TABS 2 tablets PO today---then, 1 tablet PO daily x 4 more days (and 1 optional refill) AZITHROMYCIN 32110659355 Active Alex ALVAREZ Active HYDROCHLOROTHIAZIDE TABS Take one by mouth daily HYDROCHLOROTHIAZIDE TABS 35219263758 Active Alex ALVAREZ Active NORVASC 10 MG TAB 1 tablet by mouth daily AMLODIPINE BESYLATE 58410380503 No Longer Active Alex ALVAREZ Active PROTONIX 40 MG SOLR 1 po qday for acid reflux PANTOPRAZOLE SODIUM 35493710740 Active Robbie Busby MD Active IMDUR 60 MG TAB CR take 1 tab po qday for blood pressure ISOSORBIDE MONONITRATE Active Robbie Busby MD Active ISOSORBIDE DINITRATE 30 MG TABS Take one by mouth daily ISOSORBIDE DINITRATE 48351128666 No Longer Active Robbie Busby MD Active VIIBRYD 40 MG TABS take 1 tab po qday for depression. VILAZODONE HCL 29466428113 Active Robbie Busby MD Active VIIBRYD 40 MG TABS 1 TA B PO DAILY VILAZODONE HCL 12493472393 Active Robbie Busby MD Active LORATADINE 10 MG TABS 1 tablet by mouth daily for congestion and allergies. LORATADINE 20212485380 Active Robbie Busby MD Active ZITHROMAX 250 MG TAB 2 po today, then 1 po q days 2-5 AZITHROMYCIN 37300536549 No Longer Active Robbie Busby MD Active HYDROCODONE-ACETAMINOPHEN 5-325 MG TABS 1 tab by mouth BID prn back pain 2013 HYDROCODONE-ACETAMINOPHEN 98438943358 Active Robbie Busby MD Active HYDRALAZINE HCL 50 MG TABS take 1 tab po QID for high blood pressure HYDRALAZINE HCL 13625427577 Active Robbie Busby MD Active BNXHOCYJ-QFA-2 0.3 MG/24HR PTWK apply 2 patches q week for HTN CLONIDINE HCL 09670517669 Active Robbie Busby MD Active FENOFIBRATE 145 MG TABS Take one by mouth daily FENOFIBRATE 60698747202 Active Robbie Busby MD Active NITROSTAT 0.4 MG SUBL PRN NITROGLYCERIN 01366911603 Active Robbie Busby MD Active DOXAZOSIN MESYLATE 4 MG TABS Take one by mouth daily DOXAZOSIN MESYLATE 24822579550 Active Robbie Busby MD Active HYDRALAZINE HCL 25 MG TABS 1 tablet by mouth tid for hypertension HYDRALAZINE HCL 33565664499 Active Robbie Busby MD Active TOPROL XL 200 MG [id number] Take one by mouth daily METOPROLOL SUCCINATE 41281771432 Active Robbie Busby MD Active SPIRONOLACTONE 50 MG TABS 1 tablet by mouth twice a day SPIRONOLACTONE 41610389530 Active Robbie Busby MD Active VENLAFAXINE HCL ER 150 MG [id number] Take one by mouth daily VENLAFAXINE HCL 29825370464 Active Robbie Busby MD Active LIPITOR 40 MG TABS Take one by mouth daily ATORVASTATIN CALCIUM 27873815648 Active Robbie Busby MD Active ISOSORBIDE DINITRATE 30 MG TABS Take one by mouth daily ISOSORBIDE DINITRATE 30 MG TABS 421338 ISOSORBIDE DINITRATE Inactive NORVASC 10 MG TAB 1 tablet by mouth daily NORVASC 10 MG TAB 514217 AMLODIPINE BESYLATE Inactive ZITHROMAX 250 MG TAB 2 po today, then 1 po q days 2-5 ZITHROMAX 250 MG TAB 7191249 AZITHROMYCIN Inactive Vital Signs Date Name Value [...] mg/dL Chart Maintenance: Outside labs entered on [employer] - Hematology leukocyte count, blood 8.9 10*3/mm3 hemoglobin, blood 14.0 g/dL platelet count 285 10*3/mm3 Lab Report: Basic Metabolic Panel, UADIP W/MICRO, AUTO - Chemistry protein, total urine random 2+ mg/dL Negative sodium, serum 144 mmol/L 028-064 2679/07/07 potassium, serum 3.9 mmol/L 3.5-5.2 chloride, serum [...] Panel - Chemistry sodium, serum 141 mmol/L 483-056 2927/12/05 potassium, serum 4.0 mmol/L 3.5-5.2 chloride, serum [...] mg/dL Encounters Code Encounter Date Provider Facility CPT-38673 Level 3 Est. Patient 17:08:12 CDT Alex ALVAREZ [facility] CPT-50840 Level 4 Est. Patient 17:51:38 CDT Robbie Busby MD [facility] CPT-89410 Level 4 Est. Patient 14:00:21 CDT Robbie Busby MD [facility] CPT-53931 Level 4 Est. Patient 12:46:48 CDT Robbie Busby MD [facility] CPT-20927 Level 4 Est. Patient 13:34:33 CDT Robbie Busby MD [facility] CPT-59728 Level 4 Est. Patient 16:58:28 CDT Robbie Busby MD [facility] CPT-06440 Level 3 Est. Patient 19:36:53 CDT Alex ALVAREZ [facility] CPT-71077 Level 3 Est. Patient 12:58:15 CDT Robbie Busby MD [facility] Procedures Code Procedure Name Date Entry Date Standard Description CPT-G0008 Administration of Influenza Virus Vaccine 16:09:59 CDT CPT-27193 Fluzone Quadrivalent Intramuscular Suspension 0.5 ML 16: 09:59 CDT CPT-75614 Spec Collection and Handling Fee 15:05:50 CDT
--- OUTSIDE RECORDS SUMMARY | 2018-04-18 15:02 | XMS REPORT | Clinical Summary ---
Author Author Admin, Nicolas Organization [facility] Address Unknown Phone Unavailable Allergies, Adverse Reactions, [...] of status migrainosus BPH 600.00 Active Robbie Busyb MD Hypertrophy (benign) of prostate without urinary [...] cap po bid x 10 days CEFDINIR 14065027657 Active Jackie Junior MA Active PREDNISONE 20 MG TAB 1 tablet twice daily for 2 days, then 1 tablet once daily for 2 days PREDNISONE 77965004228 Active Desmond Diaz DO Active NEXIUM 40 MG CPDR 1 cap by mouth daily ESOMEPRAZOLE MAGNESIUM 25263231374 Active Gali Negro Active PROTONIX 40 MG SOLR 1 po qday for acid reflux PANTOPRAZOLE SODIUM 07399798512 No Longer Active Gali Negro Active BETADINE 10 % EXT SOLN wash with solution to treat follicultis POVIDONE-IODINE 31936127609 Active Robbie Busby MD Active KEFLEX 500 MG CAP 1 po TID x 10 days CEPHALEXIN 35354683436 No Longer Active Robbie Busby MD Active FIORICET 50-300-40 MG ORAL CAPS take 1 tab po qday prn migraines. [id number] 08491554939 Active Robbie Busby MD Active TOPIRAMATE 50 MG ORAL TABS take 1 tab po BID for migraines. TOPIRAMATE 39805828639 Active Robbie Busby MD Active HYDRALAZINE HCL 50 MG ORAL TABS TWO BY MOUTH THREE TIMES DAILY HYDRALAZINE HCL 56959221281 Active Robbie Busby MD Active MECLIZINE HCL 25 MG TAB one 4 times a day as needed for dizziness MECLIZINE HCL 66400925774 Active Robbie Busby MD Active TRILEPTAL 150 MG ORAL TABS 1 TAB PO Q HS OXCARBAZEPINE 92316586631 Active Robbie Busby MD Active TEMAZEPAM 15 MG ORAL CAPS 1 TAB PO Q HS TEMAZEPAM 07622005737 Active Robbie Busby MD Active ALPRAZOLAM 2 MG ORAL TABS 1 TAB PO BID ALPRAZOLAM 47885617577 Active Robbie Busby MD Active FENOFIBRATE 145 MG TABS Take one by mouth daily FENOFIBRATE 11361674495 No Longer Active Robbie Busby MD Active LAMISIL 125 MG ORAL PACK 1 TAB PO DAILY TERBINAFINE HCL 87364896095 Active Robbie Busby MD Active SPIRONOLACTONE 50 MG TABS 1 tablet by mouth twice a day SPIRONOLACTONE 14065325252 No Longer Active Robbie Busby MD Active HYDRALAZINE HCL 25 MG TABS 1 tablet by mouth tid for hypertension HYDRALAZINE HCL 72418435176 No Longer Active Robbie Busby MD Active VIIBRYD 40 MG TABS take 1 tab po qday for depression. VILAZODONE HCL 19895706435 No Longer Active Robbie Busby MD Active TERBINAFINE HCL 250 MG TABS 1 tab po qday for foot infection 2014 TERBINAFINE HCL 24753814114 No Longer Active Robbie Busby MD Active GABAPENTIN 300 MG CAPS 1 po q hs for nerve pain GABAPENTIN 60697137952 Active Erin Garsia BOWLING FLOOR MANAGER Active FLONASE 50 MCG/ACT SUSP 1 spray each nostril twice daily for allergies and runny nose FLUTICASONE PROPIONATE 68907657453 Active Robbie Busby MD Active CHERATUSSIN AC 100-10 MG/5ML ORAL SOLN 7.5 mL PO q 4-6 hrs PRN cough GUAIFENESIN-CODEINE 28204156129 No Longer Active Robbie Busby MD Active AZITHROMYCIN 250 MG ORAL TABS 2 tablets PO today---then, 1 tablet PO daily x 4 more days (and 1 optional refill) AZITHROMYCIN 87858136312 No Longer Active Robbie Busby MD Active CLONIDINE HCL 0.2 MG ORAL TABS 1 TAB BY MOUTH EVERY 8 HOURS CLONIDINE HCL 20878381036 Active Robbie Busby MD Active HYDROCHLOROTHIAZIDE TABS Take one by mouth daily HYDROCHLOROTHIAZIDE TABS 68621254407 Active Alex ALVAREZ Active NORVASC 10 MG TAB 1 tablet by mouth daily AMLODIPINE BESYLATE 67355909583 No Longer Active Alex ALVAREZ Active IMDUR 60 MG TAB CR take 1 tab po qday for blood pressure ISOSORBIDE MONONITRATE Active Robbie Busby MD Active ISOSORBIDE DINITRATE 30 MG TABS Take one by mouth daily ISOSORBIDE DINITRATE 97628370721 No Longer Active Robbie Busby MD Active VIIBRYD 40 MG TABS 1 TA B PO DAILY VILAZODONE HCL 70756909457 Active Robbie Busby MD Active LORATADINE 10 MG TABS 1 tablet by mouth daily for congestion and allergies. LORATADINE 51900954509 Active Robbie Busby MD Active ZITHROMAX 250 MG TAB 2 po today, then 1 po q days 2-5 AZITHROMYCIN 23753552548 No Longer Active Robbie Busby MD Active HYDROCODONE-ACETAMINOPHEN 5-325 MG TABS 1 tab by mouth BID prn back pain 2013 HYDROCODONE-ACETAMINOPHEN 24756234218 Active Robbie Busby MD Active XTFXWCUA-YJQ-9 0.3 MG/24HR PTWK apply 2 patches q week for HTN CLONIDINE HCL 15291042853 Active Robbie Busby MD Active NITROSTAT 0.4 MG SUBL PRN NITROGLYCERIN 50025269775 Active Robbie Busby MD Active DOXAZOSIN MESYLATE 4 MG TABS Take one by mouth daily DOXAZOSIN MESYLATE 94280153888 Active Robbie Busby MD Active TOPROL XL 200 MG [id number] Take one by mouth daily METOPROLOL SUCCINATE 43175345688 Active Robbie Busby MD Active VENLAFAXINE HCL ER 150 MG [id number] Take one by mouth daily VENLAFAXINE HCL 77390822464 Active Robbie Busby MD Active LIPITOR 40 MG TABS Take one by mouth daily ATORVASTATIN CALCIUM 79054457561 Active Robbie Busby MD Active ISOSORBIDE DINITRATE 30 MG TABS Take one by mouth daily ISOSORBIDE DINITRATE 30 MG TABS 650598 ISOSORBIDE DINITRATE Inactive NORVASC 10 MG TAB 1 tablet by mouth daily NORVASC 10 MG TAB 629971 AMLODIPINE BESYLATE Inactive AZITHROMYCIN 250 MG ORAL TABS 2 tablets PO today---then, 1 tablet PO daily x 4 more days (and 1 optional refill) AZITHROMYCIN 250 MG ORAL TABS 5347717 AZITHROMYCIN Inactive CHERATUSSIN AC 100-10 MG/5ML ORAL SOLN 7.5 mL PO q 4-6 hrs PRN cough CHERATUSSIN AC 100-10 MG/5ML ORAL SOLN 304872 GUAIFENESIN- CODEINE Inactive VIIBRYD 40 MG TABS take 1 tab po qday for depression. VIIBRYD 40 MG TABS VILAZODONE HCL Inactive HYDRALAZINE HCL 25 MG TABS 1 tablet by mouth tid for hypertension HYDRALAZINE HCL 25 MG TABS 759269 HYDRALAZINE HCL Inactive SPIRONOLACTONE 50 MG TABS 1 tablet by mouth twice a day SPIRONOLACTONE 50 MG TABS 373715 SPIRONOLACTONE Inactive FENOFIBRATE 145 MG TABS Take one by mouth daily FENOFIBRATE 145 MG TABS 354619 FENOFIBRATE Inactive PROTONIX 40 MG SOLR 1 po qday for acid reflux PROTONIX 40 MG SOLR PANTOPRAZOLE SODIUM Inactive ZITHROMAX 250 MG TAB 2 po today, then 1 po q days 2-5 ZITHROMAX 250 MG TAB 7963416 AZITHROMYCIN Inactive TERBINAFINE HCL 250 MG TABS 1 tab po qday for foot infection 2014 TERBINAFINE HCL 250 MG TABS 997847 TERBINAFINE HCL Inactive KEFLEX 500 MG CAP 1 po TID x 10 days KEFLEX 500 MG CAP 110107 CEPHALEXIN Inactive Vital Signs Date Name Value [...] Acid - Chemistry sodium, serum 139 mmol/L 099-159 5046/04/22 carbon dioxide, venous blood 29.4 mmol/L 21.0-32.0 [...] PANEL - Chemistry cholesterol, serum 211 mg/dL 848-258 9445/08/31 triglyceride, serum, fasting 429 mg/dL 30-200 HDL [...] Negative Encounters Code Encounter Date Provider Facility CPT-22065 Level 3 Est. Patient 12:38:24 CDT Desmond Diaz DO [facility] CPT-46059 Level 4 Est. 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 Patient 14:50:10 CDT Robbie Busby MD [facility] CPT-57679 Level 4 Est. Patient 23:30:43 CDT Robbie Busby MD [facility] CPT-33811 Level 4 Est. Patient 10:30:43 CDT Robbie Busby MD [facility] CPT-18250 Level 3 Est. Patient 17:08:12 CDT Alex ALVAREZ [facility] CPT-66037 Level 4 Est. Patient 17:51:38 CDT Robbie Busby MD [facility] CPT-64995 Level 4 Est. Patient 14:00:21 CDT Robbie Busby MD [facility] CPT-58193 Level 4 Est. Patient 12:46:48 CDT Robbie Busby MD [facility] CPT-37250 Level 4 Est. Patient 13:34:33 CDT Robbie Busby MD [facility] CPT-46449 Level 4 Est. Patient 16:58:28 CDT Robbie Busby MD [facility] CPT-90399 Level 3 Est. Patient 19:36:53 CDT Alex ALVAREZ [facility] CPT-78392 Level 3 Est. Patient 12:58:15 CDT Robbie Busby MD [facility] Procedures Code Procedure Name Date Entry Date Standard Description CPT-00032 Venipuncture Draw Fee 13:07:17 CDT CPT-G0008 Administration of Influenza Virus Vaccine 16:09:59 CDT CPT-22672 Fluzone Quadrivalent Intramuscular Suspension 0.5 ML 16: 09:59 CDT CPT-64786 Spec Collection and Handling Fee 15:05:50 CDT
--- OUTSIDE RECORDS SUMMARY | 2018-04-18 15:03 | XMS REPORT | Clinical Summary ---
Author Author Admin, AKUA Organization 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 Rober Rodríguez 3D ARTIST Other malignant secondary hypertension Tachycardia 785.0 Active [...] by mouth daily for 7 days LEVOFLOXACIN 18901412641 Active Erin Garsia APRN Active BACTRIM DS 800-160 MG TAB 1 tab by mouth twice daily TRIMETHOPRIM-SULFAMETHOXAZOLE 12778524205 No Longer Active Robbie Busby MD Active SPIRONOLACTONE 25 MG TAB 4 tablets by mouth daily SPIRONOLACTONE 90797397777 Active Robbie Busby MD Active HYDRALAZINE HCL 50 MG ORAL TABS TWO BY MOUTH THREE TIMES DAILY HYDRALAZINE HCL 99968254971 No Longer Active Andrellina Zulemal 3D ARTIST Active HYDROCODONE-ACETAMINOPHEN 5-325 MG TABS 1 tab by mouth BID prn back pain 2013 HYDROCODONE-ACETAMINOPHEN 53031727856 No Longer Active Jillina Frazell 3D ARTIST Active HYDROCHLOROTHIAZIDE TABS Take one by mouth daily HYDROCHLOROTHIAZIDE TABS 97603285715 No Longer Active Jillina Frazell 3D ARTIST Active LAMISIL 125 MG ORAL PACK 1 TAB PO DAILY TERBINAFINE HCL 42969354347 No Longer Active Jillina Frazell 3D ARTIST Active TRILEPTAL 150 MG ORAL TABS 1 TAB PO Q HS OXCARBAZEPINE 74351349817 No Longer Active Jillina Frazell 3D ARTIST Active BETADINE 10 % EXT SOLN wash with solution to treat follicultis POVIDONE-IODINE 90189126503 No Longer Active Jillina Frazell 3D ARTIST Active NYSTATIN 840058 UNIT/ML M/T SUSP 5mL po QID x 10 days NYSTATIN 96707291823 No Longer Active Erin Garsia APRN Active PREDNISONE 20 MG TAB 1 tablet twice daily for 2 days, then 1 tablet once daily for 2 days PREDNISONE 41757341685 No Longer Active Robbie Busby MD Active CEFDINIR 300 MG ORAL CAPS Take 1 cap po bid x 10 days CEFDINIR 42220858997 No Longer Active Robbie Busby MD Active AMLODIPINE BESYLATE 10 MG TABS 1 tablet by mouth daily AMLODIPINE BESYLATE 97383835290 Active Robbie Busby MD Active CARVEDILOL 25 MG TABS 1 & 1/2 TAB po BID CARVEDILOL 74860278118 Active Erin Garsia APRN Active VITAMIN D3 37163 UNIT CAPS 2 CAPS PO WEEKLY CHOLECALCIFEROL 49037028260 Active Erin Garsia APRN Active NEXIUM 40 MG CPDR 1 cap by mouth daily ESOMEPRAZOLE MAGNESIUM 24410244437 Active Robbie Busby MD Active PROTONIX 40 MG SOLR 1 po qday for acid reflux PANTOPRAZOLE SODIUM 33588999891 No Longer Active Gali Raida Active KEFLEX 500 MG CAP 1 po TID x 10 days CEPHALEXIN 40539950405 No Longer Active Robbie Busby MD Active FIORICET 50-300-40 MG ORAL CAPS take 1 tab po qday prn migraines. [id number] 34533006912 Active Robbie Busby MD Active TOPIRAMATE 50 MG ORAL TABS take 1 tab po BID for migraines. TOPIRAMATE 71205171909 Active Robbie Busby MD Active MECLIZINE HCL 25 MG TAB one 4 times a day as needed for dizziness MECLIZINE HCL 51216067411 Active Robbie Busby MD Active TEMAZEPAM 15 MG ORAL CAPS 1 TAB PO Q HS TEMAZEPAM 11777674291 Active Robbie Busby MD Active ALPRAZOLAM 2 MG ORAL TABS 1 TAB PO BID ALPRAZOLAM 12075594591 Active Robbie Busby MD Active FENOFIBRATE 145 MG TABS Take one by mouth daily FENOFIBRATE 51946024554 No Longer Active Robbie Busby MD Active SPIRONOLACTONE 50 MG TABS 1 tablet by mouth twice a day SPIRONOLACTONE 95722786132 No Longer Active Robbie Busby MD Active HYDRALAZINE HCL 25 MG TABS 1 tablet by mouth tid for hypertension HYDRALAZINE HCL 87258104495 No Longer Active Robbie Busby MD Active VIIBRYD 40 MG TABS take 1 tab po qday for depression. VILAZODONE HCL 69132700620 No Longer Active Robbie Busby MD Active TERBINAFINE HCL 250 MG TABS 1 tab po qday for foot infection 2014 TERBINAFINE HCL 37702794431 No Longer Active Robbie Busby MD Active GABAPENTIN 300 MG CAPS 1 po q hs for nerve pain GABAPENTIN 13753109799 Active Robbie Busby MD Active FLONASE 50 MCG/ACT SUSP 1 spray each nostril twice daily for allergies and runny nose FLUTICASONE PROPIONATE 56435867294 Active Robbie Busby MD Active CHERATUSSIN AC 100-10 MG/5ML ORAL SOLN 7.5 mL PO q 4-6 hrs PRN cough GUAIFENESIN-CODEINE 04005654762 No Longer Active Robbie Busby MD Active AZITHROMYCIN 250 MG ORAL TABS 2 tablets PO today---then, 1 tablet PO daily x 4 more days (and 1 optional refill) AZITHROMYCIN 42020477974 No Longer Active Robbie Busby MD Active CLONIDINE HCL 0.2 MG ORAL TABS 1 TAB BY MOUTH EVERY 8 HOURS CLONIDINE HCL 80643358342 Active Robbie Busby MD Active NORVASC 10 MG TAB 1 tablet by mouth daily AMLODIPINE BESYLATE 31044684528 No Longer Active Alex ALVAREZ Active IMDUR 60 MG TAB CR take 1 tab po qday for blood pressure ISOSORBIDE MONONITRATE Active Robbie Busby MD Active ISOSORBIDE DINITRATE 30 MG TABS Take one by mouth daily ISOSORBIDE DINITRATE 16626957091 No Longer Active Robbie Busby MD Active VIIBRYD 40 MG TABS 1 TA B PO DAILY VILAZODONE HCL 35607719615 Active Robbie Busby MD Active LORATADINE 10 MG TABS 1 tablet by mouth daily for congestion and allergies. LORATADINE 42754757533 Active Robbie Busby MD Active ZITHROMAX 250 MG TAB 2 po today, then 1 po q days 2-5 AZITHROMYCIN 93255210163 No Longer Active Robbie Busby MD Active [id number]-[id number]-8 0.3 MG/24HR PTWK apply 2 patches q week for HTN CLONIDINE HCL 66953603394 Active Robbie Busby MD Active NITROSTAT 0.4 MG SUBL PRN NITROGLYCERIN 63670183123 Active Robbie Busby MD Active DOXAZOSIN MESYLATE 4 MG TABS Take one by mouth daily DOXAZOSIN MESYLATE 54474554068 Active Erin Garsia APRN Active TOPROL XL 200 MG [id number]-[id number] Take one by mouth daily METOPROLOL SUCCINATE 44774164325 Active Robbie Busby MD Active VENLAFAXINE HCL ER 150 MG [id number]-[id number] Take one by mouth daily VENLAFAXINE HCL 88242259476 Active Robbie Busby MD Active LIPITOR 40 MG TABS Take one by mouth daily ATORVASTATIN CALCIUM 45731318974 Active Robbie Busby MD Active ISOSORBIDE DINITRATE 30 MG TABS Take one by mouth daily ISOSORBIDE DINITRATE 30 MG TABS 659189 ISOSORBIDE DINITRATE Inactive NORVASC 10 MG TAB 1 tablet by mouth daily NORVASC 10 MG TAB 243382 AMLODIPINE BESYLATE Inactive AZITHROMYCIN 250 MG ORAL TABS 2 tablets PO today---then, 1 tablet PO daily x 4 more days (and 1 optional refill) AZITHROMYCIN 250 MG ORAL TABS 3219559 AZITHROMYCIN Inactive CHERATUSSIN AC 100-10 MG/5ML ORAL SOLN 7.5 mL PO q 4-6 hrs PRN cough CHERATUSSIN AC 100-10 MG/5ML ORAL SOLN 384013 GUAIFENESIN- CODEINE Inactive VIIBRYD 40 MG TABS take 1 tab po qday for depression. VIIBRYD 40 MG TABS VILAZODONE HCL Inactive HYDRALAZINE HCL 25 MG TABS 1 tablet by mouth tid for hypertension HYDRALAZINE HCL 25 MG TABS 223097 HYDRALAZINE HCL Inactive SPIRONOLACTONE 50 MG TABS 1 tablet by mouth twice a day SPIRONOLACTONE 50 MG TABS 858963 SPIRONOLACTONE Inactive FENOFIBRATE 145 MG TABS Take one by mouth daily FENOFIBRATE 145 MG TABS 556427 FENOFIBRATE Inactive PROTONIX 40 MG SOLR 1 po qday for acid reflux PROTONIX 40 MG SOLR 829106 PANTOPRAZOLE SODIUM Inactive CEFDINIR 300 MG ORAL CAPS Take 1 cap po bid x 10 days CEFDINIR 300 MG ORAL CAPS 453065 CEFDINIR Inactive PREDNISONE 20 MG TAB 1 tablet twice daily for 2 days, then 1 tablet once daily for 2 days PREDNISONE 20 MG TAB 552397 PREDNISONE Inactive NYSTATIN 997703 UNIT/ML M/T SUSP 5mL po QID x 10 days NYSTATIN 586129 UNIT/ML M/T SUSP 293267 NYSTATIN Inactive BETADINE 10 % EXT SOLN wash with solution to treat follicultis BETADINE 10 % EXT SOLN 2748508 POVIDONE-IODINE Inactive TRILEPTAL 150 MG ORAL TABS 1 TAB PO Q HS TRILEPTAL 150 MG ORAL TABS 891320 OXCARBAZEPINE Inactive LAMISIL 125 MG ORAL PACK 1 TAB PO DAILY LAMISIL 125 MG ORAL PACK TERBINAFINE HCL Inactive HYDROCHLOROTHIAZIDE TABS Take one by mouth daily HYDROCHLOROTHIAZIDE TABS HYDROCHLOROTHIAZIDE TABS Inactive HYDROCODONE-ACETAMINOPHEN 5-325 MG TABS 1 tab by mouth BID prn back pain 2013 HYDROCODONE-ACETAMINOPHEN 5-325 MG TABS 545425 HYDROCODONE -ACETAMINOPHEN Inactive HYDRALAZINE HCL 50 MG ORAL TABS TWO BY MOUTH THREE TIMES DAILY HYDRALAZINE HCL 50 MG ORAL TABS 706872 HYDRALAZINE HCL Inactive ZITHROMAX 250 MG TAB 2 po today, then 1 po q days 2-5 ZITHROMAX 250 MG TAB 3441896 AZITHROMYCIN Inactive TERBINAFINE HCL 250 MG TABS 1 tab po qday for foot infection 2014 TERBINAFINE HCL 250 MG TABS 416590 TERBINAFINE HCL Inactive KEFLEX 500 MG CAP 1 po TID x 10 days KEFLEX 500 MG CAP 717243 CEPHALEXIN Inactive BACTRIM DS 800-160 MG TAB 1 tab by mouth twice daily BACTRIM DS 800-160 MG TAB 259745 TRIMETHOPRIM-SULFAMETHOXAZOLE Inactive Advance Directives Directive Description Start [...] Acid - Chemistry sodium, serum 139 mmol/L 540-125 3817/04/22 carbon dioxide, venous blood 29.4 mmol/L 21.0-32.0 [...] urine 80 0-19 Lab Report: VITAMIN D, 25-HYDROXY/40906 - Chemistry vitamin D 25-hydroxy, serum 23 ng/mL 30-100 Encounters Code Encounter Date Provider Facility CPT-61957 Level 4 Est. 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 Patient 09:16:37 CDT Robbie Busby MD [facility] CPT-35640 Level 3 Est. Patient 19:38:43 CDT Robbie Busby MD [facility] CPT-64932 Level 3 Est. Patient 11:53:38 CDT Robbie Busby MD [facility] CPT-69061 Level 4 Est. Patient 12:52:22 CDT Rober Rodríguez [facility] [place] CPT-56222 Level 4 Est. Patient 22:55:17 CDT Robbie Busby MD [facility] CPT-70340 Level 3 Est. Patient 12:38:24 CDT Desmond Diaz DO [facility] CPT-62871 Level 4 Est. Patient 11:25:03 MANA[employer] Robbie Busby MD [facility] CPT-43055 Level 4 Est. Patient 14:50:10 CDT Robbie Busby MD [facility] CPT-41371 Level 4 Est. Patient 23:30:43 CDT Robbie Busby MD [facility] CPT-31998 Level 4 Est. Patient 10:30:43 CDT Robbie Busby MD [facility] CPT-89755 Level 3 Est. Patient 17:08:12 CDT [facility] CPT-82919 Level 4 Est. Patient 17:51:38 CDT Robbie Busby MD [facility] CPT-18061 Level 4 Est. Patient 14:00:21 CDT Robbie Busby MD [facility] CPT-86215 Level 4 Est. Patient 12:46:48 CDT Robbie Busby MD [facility] CPT-96736 Level 4 Est. Patient 13:34:33 CDT Robbie Busby MD [facility] CPT-48950 Level 4 Est. Patient 16:58:28 CDT Robbie Busby MD [facility] CPT-33356 Level 3 Est. Patient 19:36:[address] [facility] CPT-22903 Level 3 Est. Patient 12:58:15 CDT Robbie Busby MD 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 [employer] CPT-J1040 Depo Medrol 80 mg (Methyl Prednisolone Acetate) 09:43: 34 [employer] CPT-J1100 Decadron 8mg (Dexamethasone) 09:43:34 [employer] CPT-J0696 Rocephin 1gm Inj Solr 09:43:34 [employer] CPT-69877 Wound Culture - LAB USE ONLY 14:00:21 CDT CPT-I/D I/D Abscess 09:16:37 CDT CPT-46276 Venipuncture Draw Fee 15:20:23 CDT CPT-92413 Microalbumin - LAB USE ONLY 16:02:19 CDT CPT-84890 CBC - LAB USE ONLY 16:02:19 CDT CPT-15323 Venipuncture Draw Fee 16:02:19 CDT CPT-G0438 Initial Annual Wellness Exam 08:10:28 CDT CPT-33746 Venipuncture Draw Fee 13:07:17 CDT CPT-G0008 Administration of Influenza Virus Vaccine 16:09:59 CDT CPT-75611 Fluzone Quadrivalent Intramuscular Suspension 0.5 ML 16: 09:59 CDT CPT-49710 Spec Collection and Handling Fee 15:05:50 CDT
--- OUTSIDE RECORDS SUMMARY | 2018-04-18 15:04 | XMS REPORT | Clinical Summary ---
Author Author Admin, AKUA Organization [employer] [facility] Address Unknown Phone Unavailable [...] disease, chronic, stage III 585.3 Active aC Garcia A Chronic kidney disease, Stage III (moderate) C V A / Stroke Active Robbie Busby MD Myocardial Infarction: Active Robbie Busby MD Acute myocardial infarction, unspecified site, initial episode of care ( History of) Sleep apnea, chronic 780.57 Active Erin Garsia BUS AND RAIL OPERATOR Unspecified sleep apnea Continuous positive airway pressure rx V46.2 Active Erin Garsia [employer] AND RAIL OPERATOR Other dependence on machines, 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 Fatigue 780.79 Resolved Desmond Diaz DO Other malaise and fatigue Hypertension, secondary, 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 Desmond Diaz DO Other malignant secondary hypertension Tachycardia 785.0 Active Rober Rodríguez [employer] AND RAIL OPERATOR Tachycardia, unspecified Insect bite, infected 919.5 Resolved Desmond Diaz DO Insect bite, nonvenomous, of other, multiple, and unspecified sites, infected Abscess, skin 682.9 Resolved Desmond Diaz DO Cellulitis and abscess of unspecified sites URI 465.9 Resolved Desmond Diaz DO Acute upper respiratory infections of unspecified site Hypertension 401.9 Active Rober Rodríguez BUS AND RAIL OPERATOR Unspecified essential hypertension Sinusitis - acute [...] Hypogonadism, low testosterone 257.2 Active Erin Garsia BUS AND RAIL OPERATOR Other testicular hypofunction Low back pain, chronic 724.2 Active Robbie Busby MD Lumbago Bronchitis-Acute 466.0 Inactive Desmond Diaz DO Acute bronchitis Polydipsia 783.5 Active Desmond Diaz DO Polydipsia Type 2 diabetes mellitus with hyperglycemia Active Robbie Busby MD Sinusitis ICD-461.9 Inactive Emily Atwood LPN 2017 Low back pain, acute ICD-724.2 Inactive Emily Atwood LPN Low back pain, chronic ICD-724.2 Inactive Emily Atwood [employer] Bronchitis, acute ICD-466.0 Inactive Emily Atwood [employer] Onychomycosis, toenails ICD-110.1 Inactive Emily Atwood [employer] Dizziness ICD-780.4 Inactive Emily Atwood [employer]ARD[employer] 2017 Folliculitis ICD-704.8 Inactive Emily Atwood [employer] Pharyngitis-Acute ICD-462 Inactive Emily Atwood [employer] Fatigue ICD-780.79 Inactive Emily Atwood [employer]ARD[employer]IST 09/20 Hypertension, secondary, malignant ICD-405.09 Inactive Emily Atwood [employer] Insect bite, infected ICD-919.5 Inactive Emily Atwood [employer] Abscess, skin ICD-682.9 Inactive Emily Atwood [employer] URI ICD-465.9 Inactive Emily Atwood [employer] Sinusitis - acute ICD-461.9 Inactive Emily Atwood [employer] Acute confusion ICD-293.0 Inactive Emily Atwood [employer] Headache ICD-784.0 Inactive Emily Atwood [employer]ARD[employer] 09/20 Back pain ICD-724.5 Inactive Emily Atwood [employer] 2017 Rib pain, right sided ICD-786.50 Inactive Emily Atwood [employer] Myalgias ICD-729.1 Inactive Emily Atwood LPN 09/20 URI ICD-465.9 Inactive Emily Atwood LPN Bronchitis-Acute ICD-466.0 Inactive Desmond Diaz DO Medication List Medication Instructions Start Date Stop Date Generic Name NDC Status Provider Patient Instruction CYCLOBENZAPRINE HCL 10 MG ORAL TABLET 1 tablet by mouth three times daily as needed for muscle spasm/pain CYCLOBENZAPRINE HCL 74095533803 Active Robbie Busby MD Active METFORMIN HCL 500 MG ORAL TABLET 1 tablet by mouth daily for diabetes type 2 METFORMIN HCL 97666188462 Active Robbie Busby MD Active SINGULAIR 10 MG ORAL TABLET 1 po qday for allergies. MONTELUKAST SODIUM 89039384784 Active Robbie Busby MD Active PREDNISONE 20 MG ORAL TABLET two tabs by mouth today, then one tab by mouth days two and three PREDNISONE 11381065046 No Longer Active Robbie Busby MD Active TOPIRAMATE 50 MG ORAL TABLET 1 po BID for migraines TOPIRAMATE 34312426400 Active JONATHAN Moncada Active AZITHROMYCIN 250 MG ORAL TABLET 2 po qd x 1 day, then 1 po qd x 4 days 09/20 AZITHROMYCIN 44137850572 No Longer Active Desmond Diaz DO Active TOPIRAMATE 50 MG ORAL TABLET take 1 tab po BID for migraines. TOPIRAMATE 04142410668 No Longer Active Desmond Diaz DO Active CYCLOBENZAPRINE HCL 10 MG ORAL TABLET 1 po TID PRN muscle spasm/pain for 10 days CYCLOBENZAPRINE HCL 06886798913 No Longer Active Desmond Diaz DO Active GUAIFENESIN ER 600 MG ORAL TABLET EXTENDED RELEASE 12 HOUR 1 tab po q am 2016 GUAIFENESIN 73201334985 No Longer Active Robbie Busby MD Active DIVALPROEX SODIUM ER 500 MG ORAL TABLET EXTENDED RELEASE 24 HOUR Once daily DIVALPROEX SODIUM 78188590223 Active Robbie Busby MD Active DEPO-TESTOSTERONE 200 MG/ML INTRAMUSCULAR SOLUTION 1 IM Injections every 2 weeks for low testosterone TESTOSTERONE CYPIONATE 71942312165 Active Zulema Blank LPN Active FLUTICASONE PROPIONATE 50 MCG/ACT NASAL SUSPENSION 2 sprays per nostril bid for 1 week, then 1 spray bid FLUTICASONE PROPIONATE 85974744885 Active Rober Rodríguez APRN Active HYDRALAZINE HCL 25 MG ORAL TABLET Take 1 tab BID. HYDRALAZINE HCL 89379720003 Active Rober Rodríguez APRN Active VITAMIN D3 20591 UNIT ORAL TABLET 2 po weekly CHOLECALCIFEROL 63152978800 Active Robbie Busby MD Active OXYCODONE HCL ER 10 MG ORAL TABLET ER 12 HOUR ABUSE-DETERRENT 1 tab po 3 times qd. OXYCODONE HCL 22645765561 Active Robbie Busby MD Active NITROSTAT 0.4 MG SUBLINGUAL TABLET SUBLINGUAL PRN NITROGLYCERIN 13606894381 No Longer Active Robbie Busby MD Active LORATADINE 10 MG ORAL TABLET 1 tablet by mouth daily for congestion and allergies. LORATADINE 32015923675 No Longer Active Robbie Busby MD Active FLONASE 50 MCG/ACT NASAL SUSPENSION 1 spray each nostril twice daily for allergies and runny nose FLUTICASONE PROPIONATE 61540327272 No Longer Active Robbie Busby MD Active FIORICET 50-300-40 MG ORAL CAPSULE take 1 tab po qday prn migraines. [id number] 50833896974 No Longer Active Robbie Busby MD Active VITAMIN D3 06197 UNIT ORAL CAPSULE 2 CAPS PO WEEKLY CHOLECALCIFEROL 07192790782 No Longer Active Robbie Busby MD Active CYCLOBENZAPRINE HCL 10 MG ORAL TABLET 1 tablet by mouth three times daily as needed for muscle spasm/pain for 10 days CYCLOBENZAPRINE HCL 57847732678 No Longer Active Robbie Busby MD Active PREDNISONE 20 MG ORAL TABLET take 3 tabs daily for 3 days, 2 tabs daily for 3 days, 1 tab daily for 3 days, 1/2 tab daily for 4 days PREDNISONE 67724866633 No Longer Active Erin Garsia APRN Active CLONIDINE HCL 0.2 MG ORAL TABLET 1 TAB BY MOUTH EVERY 8 HOURS CLONIDINE HCL 65847105084 No Longer Active Erin Garsia APRN Active MECLIZINE HCL 25 MG ORAL TABLET one 4 times a day as needed for dizziness MECLIZINE HCL 08928402416 No Longer Active Erin Garsia APRN Active SPIRONOLACTONE 25 MG ORAL TABLET 4 tablets by mouth daily SPIRONOLACTONE 18768182810 No Longer Active Erin Garsia APRN Active LEVAQUIN 500 MG ORAL TABLET 1 tablet by mouth daily for 7 days LEVOFLOXACIN 14085102115 No Longer Active Erin Garsia APRN Active BACTRIM DS 800-160 MG ORAL TABLET 1 tab by mouth twice daily 2015 TRIMETHOPRIM-SULFAMETHOXAZOLE 00700185571 No Longer Active Robbie Busby MD Active HYDRALAZINE HCL 50 MG ORAL TABLET TWO BY MOUTH THREE TIMES DAILY HYDRALAZINE HCL 50830849232 No Longer Active Rober Rodríguez APRN Active HYDROCODONE-ACETAMINOPHEN 5-325 MG ORAL TABLET 1 tab by mouth BID prn back pain HYDROCODONE-ACETAMINOPHEN 62812124647 No Longer Active Jillina Anne GONZALEZN Active HYDROCHLOROTHIAZIDE TABLET Take one by mouth daily HYDROCHLOROTHIAZIDE TABS 25464445286 No Longer Active Andrellld Poolel BUS AND RAIL OPERATOR Active LAMISIL 125 MG ORAL PACKET 1 TAB PO DAILY TERBINAFINE HCL 80441893589 No Longer Active Rober Rodríguez APRN Active TRILEPTAL 150 MG ORAL TABLET 1 TAB PO Q HS OXCARBAZEPINE 14370880430 No Longer Active Jillld Poolel BUS AND RAIL OPERATOR Active BETADINE 10 % EXTERNAL SOLUTION wash with solution to treat follicultis 07/29 POVIDONE-IODINE 32504762904 No Longer Active Rober Rodríguez APRN Active NYSTATIN 003145 UNIT/ML MOUTH/THROAT SUSPENSION 5mL po QID x 10 days NYSTATIN 98404198793 No Longer Active Erin Garsia APRN Active PREDNISONE 20 MG ORAL TABLET 1 tablet twice daily for 2 days, then 1 tablet once daily for 2 days PREDNISONE 20403258122 No Longer Active Robbie Busby MD Active CEFDINIR 300 MG ORAL CAPSULE Take 1 cap po bid x 10 days CEFDINIR 72076590802 No Longer Active Robbie Busby MD Active AMLODIPINE BESYLATE 10 MG ORAL TABLET 1 tablet by mouth daily AMLODIPINE BESYLATE 83965180189 Active Robbie Busby MD Active CARVEDILOL 25 MG ORAL TABLET 1 & 1/2 TAB po BID CARVEDILOL 08127994215 Active Robbie Busby MD Active NEXIUM 40 MG ORAL CAPSULE DELAYED RELEASE 1 cap by mouth daily ESOMEPRAZOLE MAGNESIUM 68136617471 Active Robbie Busby MD Active PROTONIX 40 MG INTRAVENOUS SOLUTION RECONSTITUTED 1 po qday for acid reflux PANTOPRAZOLE SODIUM 69575391576 No Longer Active Gali Raida Active KEFLEX 500 MG ORAL CAPSULE 1 po TID x 10 days CEPHALEXIN 90041916490 No Longer Active Robbie Busby MD Active TEMAZEPAM 15 MG ORAL CAPSULE 1 TAB PO Q HS TEMAZEPAM 05360128817 Active Robbie Busby MD Active ALPRAZOLAM 2 MG ORAL TABLET 1 TAB PO BID ALPRAZOLAM 99062023129 Active Robbie Busby MD Active FENOFIBRATE 145 MG ORAL TABLET Take one by mouth daily FENOFIBRATE 03563649305 No Longer Active Robbie Busby MD Active SPIRONOLACTONE 50 MG ORAL TABLET 1 tablet by mouth twice a day SPIRONOLACTONE 16233184303 No Longer Active Robbie Busby MD Active HYDRALAZINE HCL 25 MG ORAL TABLET 1 tablet by mouth tid for hypertension 2013 HYDRALAZINE HCL 65679334954 No Longer Active Robbie Busby MD Active VIIBRYD 40 MG ORAL TABLET take 1 tab po qday for depression. 2014 VILAZODONE HCL 33630670522 No Longer Active Robbie Busby MD Active TERBINAFINE HCL 250 MG ORAL TABLET 1 tab po qday for foot infection TERBINAFINE HCL 81760437403 No Longer Active Robbie Busby MD Active GABAPENTIN 300 MG ORAL CAPSULE 1 po q hs for nerve pain GABAPENTIN 36045773300 Active Robbie Busby MD Active CHERATUSSIN AC 100-10 MG/5ML ORAL SOLUTION 7.5 mL PO q 4-6 hrs PRN cough 2014 GUAIFENESIN-CODEINE 72945401412 No Longer Active Robbie Busby MD Active AZITHROMYCIN 250 MG ORAL TABLET 2 tablets PO today---then, 1 tablet PO daily x 4 more days (and 1 optional refill) AZITHROMYCIN 18145461556 No Longer Active Robbie Busby MD Active NORVASC 10 MG ORAL TABLET 1 tablet by mouth daily AMLODIPINE BESYLATE 26773303336 No Longer Active Alex ALVAREZ Active IMDUR 60 MG ORAL TABLET EXTENDED RELEASE 24 HOUR take 1 tab po qday for blood pressure ISOSORBIDE MONONITRATE 76422788809 Active Robbie Busby MD Active ISOSORBIDE DINITRATE 30 MG ORAL TABLET Take one by mouth daily ISOSORBIDE DINITRATE 75738136692 No Longer Active Robbie Busby MD Active VIIBRYD 40 MG ORAL TABLET 1 TA B PO DAILY VILAZODONE HCL 02380485762 Active Robbie Busby MD Active ZITHROMAX 250 MG ORAL TABLET 2 po today, then 1 po q days 2-5 AZITHROMYCIN 49341867152 No Longer Active Robbie Busby MD Active [id number] 0.3 MG/24HR TRANSDERMAL PATCH WEEKLY apply 2 patches q week for HTN CLONIDINE HCL 61760371792 Active Robbie Busby MD Active DOXAZOSIN MESYLATE 4 MG ORAL TABLET Take one by mouth daily DOXAZOSIN MESYLATE 57892722150 Active Robbie Busby MD Active TOPROL XL 200 MG ORAL TABLET EXTENDED RELEASE 24 HOUR Take one by mouth daily METOPROLOL SUCCINATE 97338897970 Active Robbie Busby MD Active VENLAFAXINE HCL ER 150 MG ORAL TABLET EXTENDED RELEASE 24 HOUR Take one by mouth daily VENLAFAXINE HCL 45309170766 Active Robbie Busby MD Active LIPITOR 40 MG ORAL TABLET Take one by mouth daily ATORVASTATIN CALCIUM 71457147189 Active Robbie uBsby MD Active ISOSORBIDE DINITRATE 30 MG ORAL TABLET Take one by mouth daily ISOSORBIDE DINITRATE 30 MG ORAL TABLET 894182 ISOSORBIDE DINITRATE Inactive NORVASC 10 MG ORAL TABLET 1 tablet by mouth daily NORVASC 10 MG ORAL TABLET 571800 AMLODIPINE BESYLATE Inactive AZITHROMYCIN 250 MG ORAL TABLET 2 tablets PO today---then, 1 tablet PO daily x 4 more days (and 1 optional refill) AZITHROMYCIN 250 MG ORAL TABLET 531536 AZITHROMYCIN Inactive CHERATUSSIN AC 100-10 MG/5ML ORAL SOLUTION 7.5 mL PO q 4-6 hrs PRN cough 2014 CHERATUSSIN AC 100-10 MG/5ML ORAL SOLUTION 946700 GUAIFENESIN-CODEINE Inactive VIIBRYD 40 MG ORAL TABLET take 1 tab po qday for depression. 2014 VIIBRYD 40 MG ORAL TABLET VILAZODONE HCL Inactive HYDRALAZINE HCL 25 MG ORAL TABLET 1 tablet by mouth tid for hypertension 2013 HYDRALAZINE HCL 25 MG ORAL TABLET 830639 HYDRALAZINE HCL Inactive SPIRONOLACTONE 50 MG ORAL TABLET 1 tablet by mouth twice a day SPIRONOLACTONE 50 MG ORAL TABLET 121178 SPIRONOLACTONE Inactive FENOFIBRATE 145 MG ORAL TABLET Take one by mouth daily FENOFIBRATE 145 MG ORAL TABLET 409332 FENOFIBRATE Inactive PROTONIX 40 MG INTRAVENOUS SOLUTION RECONSTITUTED 1 po qday for acid reflux PROTONIX 40 MG INTRAVENOUS SOLUTION RECONSTITUTED 222715 PANTOPRAZOLE SODIUM Inactive CEFDINIR 300 MG ORAL CAPSULE Take 1 cap po bid x 10 days CEFDINIR 300 MG ORAL CAPSULE 804030 CEFDINIR Inactive PREDNISONE 20 MG ORAL TABLET 1 tablet twice daily for 2 days, then 1 tablet once daily for 2 days PREDNISONE 20 MG ORAL TABLET 015385 PREDNISONE Inactive NYSTATIN 310658 UNIT/ML MOUTH/THROAT SUSPENSION 5mL po QID x 10 days NYSTATIN 932732 UNIT/ML MOUTH/THROAT SUSPENSION 977550 NYSTATIN Inactive BETADINE 10 % EXTERNAL SOLUTION wash with solution to treat follicultis 07/29 BETADINE 10 % EXTERNAL SOLUTION 8384020 POVIDONE-IODINE Inactive TRILEPTAL 150 MG ORAL TABLET 1 TAB PO Q HS TRILEPTAL 150 MG ORAL TABLET 848556 OXCARBAZEPINE Inactive LAMISIL 125 MG ORAL PACKET 1 TAB PO DAILY LAMISIL 125 MG ORAL PACKET TERBINAFINE HCL Inactive HYDROCHLOROTHIAZIDE TABLET Take one by mouth daily HYDROCHLOROTHIAZIDE TABLET HYDROCHLOROTHIAZIDE TABS Inactive HYDROCODONE-ACETAMINOPHEN 5-325 MG ORAL TABLET 1 tab by mouth BID prn back pain HYDROCODONE-ACETAMINOPHEN 5-325 MG ORAL TABLET 557082 HYDROCODONE-ACETAMINOPHEN Inactive HYDRALAZINE HCL 50 MG ORAL TABLET TWO BY MOUTH THREE TIMES DAILY HYDRALAZINE HCL 50 MG ORAL TABLET 198352 HYDRALAZINE HCL Inactive LEVAQUIN 500 MG ORAL TABLET 1 tablet by mouth daily for 7 days LEVAQUIN 500 MG ORAL TABLET 940383 LEVOFLOXACIN Inactive SPIRONOLACTONE 25 MG ORAL TABLET 4 tablets by mouth daily SPIRONOLACTONE 25 MG ORAL TABLET 831324 SPIRONOLACTONE Inactive MECLIZINE HCL 25 MG ORAL TABLET one 4 times a day as needed for dizziness MECLIZINE HCL 25 MG ORAL TABLET 266485 MECLIZINE HCL Inactive CLONIDINE HCL 0.2 MG ORAL TABLET 1 TAB BY MOUTH EVERY 8 HOURS CLONIDINE HCL 0.2 MG ORAL TABLET 979210 CLONIDINE HCL Inactive CYCLOBENZAPRINE HCL 10 MG ORAL TABLET 1 tablet by mouth three times daily as needed for muscle spasm/pain for 10 days CYCLOBENZAPRINE HCL 10 MG ORAL TABLET 756077 CYCLOBENZAPRINE HCL Inactive VITAMIN D3 86400 UNIT ORAL CAPSULE 2 CAPS PO WEEKLY VITAMIN D3 92925 UNIT ORAL CAPSULE CHOLECALCIFEROL Inactive FIORICET 50-300-40 MG ORAL CAPSULE take 1 tab po qday prn migraines. FIORICET 50-300-40 MG ORAL CAPSULE 891618 BUTALBITAL-APAP- CAFFEINE Inactive FLONASE 50 MCG/ACT NASAL SUSPENSION 1 spray each nostril twice daily for allergies and runny nose FLONASE 50 MCG/ACT NASAL SUSPENSION 0257408 FLUTICASONE PROPIONATE Inactive LORATADINE 10 MG ORAL TABLET 1 tablet by mouth daily for congestion and allergies. LORATADINE 10 MG ORAL TABLET 756574 LORATADINE Inactive NITROSTAT 0.4 MG SUBLINGUAL TABLET SUBLINGUAL PRN NITROSTAT 0.4 MG SUBLINGUAL TABLET SUBLINGUAL 150793 NITROGLYCERIN Inactive GUAIFENESIN ER 600 MG ORAL TABLET EXTENDED RELEASE 12 HOUR 1 tab po q am 2016 GUAIFENESIN ER 600 MG ORAL TABLET EXTENDED RELEASE 12 HOUR GUAIFENESIN Inactive CYCLOBENZAPRINE HCL 10 MG ORAL TABLET 1 po TID PRN muscle spasm/pain for 10 days CYCLOBENZAPRINE HCL 10 MG ORAL TABLET 475334 CYCLOBENZAPRINE HCL Inactive TOPIRAMATE 50 MG ORAL TABLET take 1 tab po BID for migraines. TOPIRAMATE 50 MG ORAL TABLET 486112 TOPIRAMATE Inactive PREDNISONE 20 MG ORAL TABLET two tabs by mouth today, then one tab by mouth days two and three PREDNISONE 20 MG ORAL TABLET 208007 PREDNISONE Inactive ZITHROMAX 250 MG ORAL TABLET 2 po today, then 1 po q days 2-5 ZITHROMAX 250 MG ORAL TABLET 810935 AZITHROMYCIN Inactive TERBINAFINE HCL 250 MG ORAL TABLET 1 tab po qday for foot infection TERBINAFINE HCL 250 MG ORAL TABLET 789011 TERBINAFINE HCL Inactive KEFLEX 500 MG ORAL CAPSULE 1 po TID x 10 days KEFLEX 500 MG ORAL CAPSULE 810896 CEPHALEXIN Inactive BACTRIM DS 800-160 MG ORAL TABLET 1 tab by mouth twice daily 2015 BACTRIM DS 800-160 MG ORAL TABLET 793219 TRIMETHOPRIM- SULFAMETHOXAZOLE Inactive PREDNISONE 20 MG ORAL TABLET take 3 tabs daily for 3 days, 2 tabs daily for 3 days, 1 tab daily for 3 days, 1/2 tab daily for 4 days PREDNISONE 20 MG ORAL TABLET 213610 PREDNISONE Inactive AZITHROMYCIN 250 MG ORAL TABLET 2 po qd x 1 day, then 1 po qd x 4 days 09/20 AZITHROMYCIN 250 MG ORAL TABLET 616941 AZITHROMYCIN Inactive Advance Directives Directive Description Start [...] AUTO - Chemistry sodium, serum 142 mmol/L 296-002 5819/07/17 carbon dioxide, venous blood 28.2 mmol/L 21.0-32.0 [...] % 11.0-15.0 platelet count 185 THOUSAND/UL 10*3/mm3 528-490 4760/04/14 mean platelet volume 10.9 fL 7.5-12.5 Lab Report: HGBA1C, Basic Metabolic Panel - Chemistry hemoglobin A1C, blood, as % of total hemoglobin 6.9 % 4.3-6.0 sodium, serum 139 mmol/L 800-399 2563/01/04 potassium, serum 3.9 mmol/L 3.5-5.2 chloride, serum 103 mmol/L 98-107 carbon dioxide, venous blood 26.9 mmol/L 21.0-32.0 blood glucose 106 mg/dL 65-110 calcium, serum 9.0 mg/dL 8.5-10.1 urea nitrogen, blood 20 mg/dL 7-18 creatinine, serum 1.46 mg/dL 0.60-1.30 Lab Report: LIPID PANEL, TSH/899, T4, FREE/866 - Chemistry cholesterol, serum 220 mg/dL 358-517 6546/04/14 HDL cholesterol, serum 30 mg/dL > OR=40 [...] 1.80 ng/mL 0.00-4.00 Lab Report: VITAMIN D, 25-HYDROXY/43182 - Chemistry vitamin D 25-hydroxy, serum 25 ng/mL 30-100 Office Visit: Confusion, dizziness after fall - Basic LDL target level 130 mg/dL Office Visit: Confusion, dizziness after fall - Chemistry HDL cholesterol, serum, target level 40 mg/dL triglyceride, target level 150 mg/dL cholesterol, target level 200 mg/dL Encounters Code Encounter Date Provider Facility CPT-87082 Level 4 Est. Patient 13:07:39 [employer]ARMACE[employer] PLANT OPERATOR Robbie Busby MD [facility] CPT-04599 Level 4 Est. Patient 15:23:44 PHARMACEUTICAL PLANT OPERATOR Desmond Diaz [facility] CPT-06380 Level 3 Est. Patient 15:40:49 CDT Robbie Busby MD [facility] CPT-69000 Level 4 Est. Patient 15:18:19 CDT Robbie Busby MD [facility] CPT-59626 Level 3 Est. Patient 09:00:37 CDT Rober Rodríguez [facility] CPT-92642 Level 3 Est. Patient 16:07:10 CDT Robbie Busby MD [facility] CPT-35002 Level 4 Est. Patient 11:56:16 CDT Erin Garsia [facility] CPT-68372 Level 3 Est. Patient 17:48:02 CDT Robbie Busby MD [facility] CPT-89169 Level 4 Est. Patient 12:00:49 [employer]ARMACE[employer]ICAL PLANT OPERATOR Rober Rodríguez [facility] CPT-69251 Level 3 Est. Patient 09:16:37 CDT Robbie Busby MD [facility] CPT-88944 Level 3 Est. Patient 19:38:43 CDT Robbie Busby MD [facility] CPT-67419 Level 3 Est. Patient 11:53:38 CDT Robbie Busby MD [facility] CPT-59256 Level 4 Est. Patient 12:52:22 CDT Rober Rodríguez [facility] CPT-39367 Level 4 Est. Patient 22:55:17 CDT Robbie Busby MD [facility] CPT-67916 Level 3 Est. Patient 12:38:24 CDT Desmond Diaz [facility] CPT-56229 Level 4 Est. Patient 11:25:03 PHARMACE[employer]ICAL PLANT OPERATOR Robbie Busby MD [facility] CPT-71613 Level 4 Est. Patient 14:50:10 CDT Robbie Busby MD [facility] CPT-90216 Level 4 Est. Patient 23:30:43 CDT Robbie Busby MD [facility] CPT-50479 Level 4 Est. Patient 10:30:43 CDT Robbie Busby MD [facility] CPT-92275 Level 3 Est. Patient 17:08:12 CDT Alex Shaw [facility] CPT-96679 Level 4 Est. Patient 17:51:38 CDT Robbie Busby MD [facility] CPT-81326 Level 4 Est. Patient 14:00:21 CDT Robbie Busby MD [facility] CPT-52333 Level 4 Est. Patient 12:46:48 CDT Robbie Busby MD [facility] CPT-61335 Level 4 Est. Patient 13:34:33 CDT Robbie Busby MD [facility] CPT-27719 Level 4 Est. Patient 16:58:28 CDT Robbie Busby MD [facility] CPT-06099 Level 3 Est. Patient 19:36:53 CDT Alex ALVAREZ [facility] CPT-91150 Level 3 Est. Patient 12:58:15 CDT Robbie Busby MD [facility] Procedures Code Procedure Name Date Entry Date Standard Description CPT-J1071 Depo Testosterone 200mg 16:13:47 [employer]ARM[employer] OPERATOR CPT-70527 Abx/Therapy Injection 16:13:46 [employer]ARMACE[employer]ICAL PLANT OPERATOR CPT-J1071 Depo Testosterone 200mg 15:33:58 [employer]ARMACE[employer]ICAL PLANT OPERATOR CPT-96004 Abx/Therapy Injection 15:33:58 [employer]ARMACE[employer]ICAL PLANT OPERATOR CPT-J1071 Depo Testosterone 200mg 09:38:36 PHARMACE[employer]ICAL PLANT OPERATOR CPT-65464 Abx/Therapy Injection 09:38:36 [facility] CPT-J1071 Depo Testosterone 200mg 10:22:56 PHARMACE[employer]ICAL PLANT OPERATOR CPT-18835 Abx/Therapy Injection 10:22:56 [employer]ARMACE[employer]ICAL PLANT OPERATOR CPT-J1071 Depo Testosterone 200mg 15:40:23 CDT CPT-13841 Abx/Therapy Injection 15:40:23 CDT CPT-J1071 Depo Testosterone 200mg 14:20:43 CDT CPT-68506 Abx/Therapy Injection 14:20:43 CDT CPT-J1071 Depo Testosterone 200mg 14:17:22 CDT CPT-42511 Abx/Therapy Injection 14:17:22 CDT CPT-J1071 Depo Testosterone 200mg 09:03:53 CDT CPT-30276 Abx/Therapy Injection 09:03:53 CDT CPT-G0439 [facility] Annual Wellness Exam 16:47:44 CDT CPT-J1071 Depo Testosterone 200mg 09:06:28 CDT CPT-73197 Abx/Therapy Injection 09:06:28 CDT CPT-J1071 Depo Testosterone 200mg 08:30:01 CDT CPT-79325 Abx/Therapy Injection 08:30:01 CDT CPT-J1071 Depo Testosterone 200mg 08:24:00 CDT CPT-21660 Abx/Therapy Injection 08:24:00 CDT CPT-12927 Venipuncture Draw Fee 14:39:06 CDT CPT-34769 Ribs unilateral 2V - XRAY USE ONLY 12:10:11 CDT CPT-65232 First Vx - Ix admin for Medicare patients 16:32:53 CDT CPT-90681 Boostrix Intramuscular Suspension 5-2.5-18.5 16:32:53 CDT CPT-76256 TB Skin Test 11:42:28 CDT CPT-15398 Tdap 7yrs or > 11:42:28 CDT CPT-J0696 Rocephin 1000 mg (Ceftriaxone) 17:43:43 [employer]ARMACE[employer]ICAL PLANT OPERATOR CPT-J1040 Depo Medrol 80 mg (Methyl Prednisolone Acetate) 17:43: 43 [employer]ARMACE[employer]ICAL PLANT OPERATOR CPT-J1100 Decadron 8mg (Dexamethasone) 17:43:42 PHARMACE[employer]ICAL PLANT OPERATOR CPT-82236 Abx/Therapy Injection 17:43:42 PHARMACEUTICAL PLANT OPERATOR CPT-90755 Abx/Therapy Injection 17:43:42 PHARMACEUTICAL PLANT OPERATOR CPT-J1040 Depo Medrol 80 mg (Methyl Prednisolone Acetate) 09:43: 34 PHARMACEUTICAL PLANT OPERATOR CPT-J1100 Decadron 8mg (Dexamethasone) 09:43:34 PHARMACEUTICAL PLANT OPERATOR CPT-J0696 Rocephin 1gm Inj Solr 09:43:34 PHARMACE[employer]ICAL PLANT OPERATOR CPT-82743 Wound Culture - LAB USE ONLY 14:00:21 CDT CPT-I/D I/D Abscess 09:16:37 CDT CPT-67413 Venipuncture Draw Fee 15:20:23 CDT CPT-95014 Microalbumin - LAB USE ONLY 16:02:19 CDT CPT-37822 CBC - LAB USE ONLY 16:02:19 CDT CPT-56812 Venipuncture Draw Fee 16:02:19 CDT CPT-G0438 Initial Annual Wellness Exam 08:10:28 CDT CPT-64822 Venipuncture Draw Fee 13:07:17 CDT CPT-G0008 Administration of Influenza Virus Vaccine 16:09:59 CDT CPT-64063 Fluzone Quadrivalent Intramuscular Suspension 0.5 ML 16: 09:59 CDT CPT-88915 Spec Collection and Handling Fee 15:05:50 CDT
--- OUTSIDE RECORDS SUMMARY | 2018-04-18 15:05 | XMS REPORT | Clinical Summary ---
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 Desmond Diaz DO Other malignant secondary hypertension Tachycardia 785.0 Active Rober Rodríguez ASSISTANT REAL ESTATE MANAGER Tachycardia, unspecified Insect bite, infected 919.5 Resolved Desmond Diaz DO Insect bite, nonvenomous, of other, multiple, and unspecified sites, infected Abscess, skin 682.9 Resolved Desmond Diaz DO Cellulitis and abscess of unspecified sites URI 465.9 Resolved Desmond Diaz DO Acute upper respiratory infections of unspecified site Hypertension 401.9 Active Rober Rodríguez ASSISTANT REAL ESTATE MANAGER Unspecified essential hypertension Sinusitis - acute [...] Unspecified vitamin D deficiency Myalgias 729.1 Resolved Demsond W Joe DO Myalgia and myositis, unspecified URI 465.9 Resolved Desmond Dante Joe DO Acute upper respiratory infections of unspecified site Hypogonadism, low testosterone 257.2 Active Erin Mai ASSISTANT REAL ESTATE MANAGER Other testicular hypofunction Low back pain, [...] unspecified site Sinusitis ICD-461.9 Inactive Emily Atwood [employer] 2017 Low back pain, acute ICD-724.2 Inactive Emily Atwood [employer] Low back pain, chronic ICD-724.2 Inactive Emily Atwood [employer]ER Bronchitis, acute ICD-466.0 Inactive Emily Atwood [employer]ER Onychomycosis, toenails ICD-110.1 Inactive Emily Atwood [employer] POL[employer]ER Dizziness ICD-780.4 Inactive Emily Atwood [employer]ER 2017 Folliculitis ICD-704.8 Inactive Emily Atwood [employer]ER Pharyngitis-Acute ICD-462 Inactive Emily Atwood M[employer] POL[employer]ER Fatigue ICD-780.79 Inactive Emily Atwood [employer] POL[employer] 09/20 Hypertension, secondary, malignant ICD-405.09 Inactive Emily Atwood M[employer] POL[employer]ER Insect bite, infected ICD-919.5 Inactive Emily Atwood M[employer] POL[employer]ER Abscess, skin ICD-682.9 Inactive Emily Atwood M[employer] POL[employer]ER URI ICD-465.9 Inactive Emily Atwood M[employer] POL[employer]ER Sinusitis - acute ICD-461.9 Inactive Emily Atwood M[employer]ER Acute confusion ICD-293.0 Inactive Emily Atwood [employer] Headache ICD-784.0 Inactive Emily Atwood [employer] 09/20 Back pain ICD-724.5 Inactive Emily Atwood [employer] 2017 Rib pain, right sided ICD-786.50 Inactive Emily Atwood [employer] Myalgias ICD-729.1 Inactive Emily Atwood [employer] 09/20 URI ICD-465.9 Inactive Emily Atwood M[employer] Bronchitis-Acute ICD-466.0 Inactive Desmond Diaz DO Medication List Medication Instructions Start Date Stop Date Generic Name NDC Status Provider Patient Instruction PREDNISONE 20 MG ORAL TABLET 2 po qd x 5 days PREDNISONE [id number] No Longer Active Renny Bella MD Active PROMETHAZINE-CODEINE 6.25-10 MG/5ML ORAL SYRUP 5ml po q6hr PRN Cough PROMETHAZINE-CODEINE 36323374038 Active Renny Bella MD Active MONTELUKAST SODIUM 10 MG ORAL TABLET 1 tab po daily for allergies MONTELUKAST SODIUM 99534209750 Active JONATHAN Moncada Active IMDUR 60 MG ORAL TABLET EXTENDED RELEASE 24 HOUR 1 po q day ISOSORBIDE MONONITRATE 84420684577 Active Emma Hernandez Active METOPROLOL SUCCINATE ER 200 MG ORAL TABLET EXTENDED RELEASE 24 HOUR take 1 tab po qday for high blood pressure and rapid pulse METOPROLOL SUCCINATE 81669017627 Active Robbie Busby MD Active [id number]-5 0.3 MG/24HR TRANSDERMAL PATCH WEEKLY apply 2 patches q week for HTN CLONIDINE HCL 47766584035 No Longer Active Robbie Busby MD Active IMDUR 60 MG ORAL TABLET EXTENDED RELEASE 24 HOUR take 1 tab po qday for blood pressure ISOSORBIDE MONONITRATE 95306450649 No Longer Active Robbie Busby MD Active TEMAZEPAM 15 MG ORAL CAPSULE 1 TAB PO Q HS TEMAZEPAM 87375822362 No Longer Active Robbie Busby MD Active TOPIRAMATE 50 MG ORAL TABLET 1 po BID for migraines TOPIRAMATE 37347164947 No Longer Active Robbie Busby MD Active CYCLOBENZAPRINE HCL 10 MG ORAL TABLET 1 tablet by mouth three times daily as needed for muscle spasm/pain CYCLOBENZAPRINE HCL 77574889259 No Longer Active Robbie Busby MD Active TOPROL XL 200 MG ORAL TABLET EXTENDED RELEASE 24 HOUR Take one by mouth daily METOPROLOL SUCCINATE 07931485153 No Longer Active Robbie Busby MD Active METFORMIN HCL 500 MG ORAL TABLET 1 tablet by mouth daily for diabetes type 2 METFORMIN HCL 73693808030 Active Robbie Busby MD Active SINGULAIR 10 MG ORAL TABLET 1 po qday for allergies. MONTELUKAST SODIUM 22987226483 No Longer Active Robbie Busby MD Active PREDNISONE 20 MG ORAL TABLET two tabs by mouth today, then one tab by mouth days two and three PREDNISONE 30373965233 No Longer Active Robbie Busby MD Active AZITHROMYCIN 250 MG ORAL TABLET 2 po qd x 1 day, then 1 po qd x 4 days 09/20 AZITHROMYCIN 39991368076 No Longer Active Desmond Diaz DO Active TOPIRAMATE 50 MG ORAL TABLET take 1 tab po BID for migraines. TOPIRAMATE 14228232985 No Longer Active Desmond Diaz DO Active CYCLOBENZAPRINE HCL 10 MG ORAL TABLET 1 po TID PRN muscle spasm/pain for 10 days CYCLOBENZAPRINE HCL 37764759203 No Longer Active Desmond Diaz DO Active GUAIFENESIN ER 600 MG ORAL TABLET EXTENDED RELEASE 12 HOUR 1 tab po q am 2016 GUAIFENESIN 07336534196 No Longer Active Robbie Busby MD Active DIVALPROEX SODIUM ER 500 MG ORAL TABLET EXTENDED RELEASE 24 HOUR Once daily DIVALPROEX SODIUM 08464179515 Active Robbie Busby MD Active DEPO-TESTOSTERONE 200 MG/ML INTRAMUSCULAR SOLUTION 1 IM Injections every 2 weeks for low testosterone TESTOSTERONE CYPIONATE 38100581433 Active Zulema Blank LPN Active FLUTICASONE PROPIONATE 50 MCG/ACT NASAL SUSPENSION 2 sprays per nostril bid for 1 week, then 1 spray bid FLUTICASONE PROPIONATE 10138197226 Active Jillld Rodríguez APRN Active HYDRALAZINE HCL 25 MG ORAL TABLET Take 1 tab BID. HYDRALAZINE HCL 70458967188 Active Jillina Anne GONZALEZN Active VITAMIN D3 02357 UNIT ORAL TABLET 2 po weekly CHOLECALCIFEROL 49846990383 Active Robbie Busby MD Active OXYCODONE HCL ER 10 MG ORAL TABLET ER 12 HOUR ABUSE-DETERRENT 1 tab po 3 times qd. OXYCODONE HCL 73364405198 Active Robbie Busby MD Active NITROSTAT 0.4 MG SUBLINGUAL TABLET SUBLINGUAL PRN NITROGLYCERIN 82799984396 No Longer Active Robbie Busby MD Active LORATADINE 10 MG ORAL TABLET 1 tablet by mouth daily for congestion and allergies. LORATADINE 82369040914 No Longer Active Robbie Busby MD Active FLONASE 50 MCG/ACT NASAL SUSPENSION 1 spray each nostril twice daily for allergies and runny nose FLUTICASONE PROPIONATE 06890729367 No Longer Active Robbie Busby MD Active FIORICET 50-300-40 MG ORAL CAPSULE take 1 tab po qday prn migraines. [id number]-[id number]-KNRRPCNZ 77335627322 No Longer Active Robbie Busby MD Active VITAMIN D3 71820 UNIT ORAL CAPSULE 2 CAPS PO WEEKLY CHOLECALCIFEROL 02738438889 No Longer Active Robbie Busby MD Active CYCLOBENZAPRINE HCL 10 MG ORAL TABLET 1 tablet by mouth three times daily as needed for muscle spasm/pain for 10 days CYCLOBENZAPRINE HCL 91665963243 No Longer Active Robbie Busby MD Active PREDNISONE 20 MG ORAL TABLET take 3 tabs daily for 3 days, 2 tabs daily for 3 days, 1 tab daily for 3 days, 1/2 tab daily for 4 days PREDNISONE 70616219329 No Longer Active Erin Arezane GONZALEZN Active CLONIDINE HCL 0.2 MG ORAL TABLET 1 TAB BY MOUTH EVERY 8 HOURS CLONIDINE HCL 23448363929 No Longer Active Erin Arell ASSISTANT REAL ESTATE MANAGER Active MECLIZINE HCL 25 MG ORAL TABLET one 4 times a day as needed for dizziness MECLIZINE HCL 81087187171 No Longer Active Erin Arell ASSISTANT REAL ESTATE MANAGER Active SPIRONOLACTONE 25 MG ORAL TABLET 4 tablets by mouth daily SPIRONOLACTONE 49558790643 No Longer Active Erin Arell ASSISTANT REAL ESTATE MANAGER Active LEVAQUIN 500 MG ORAL TABLET 1 tablet by mouth daily for 7 days LEVOFLOXACIN 90588679126 No Longer Active Erin Arell ASSISTANT REAL ESTATE MANAGER Active BACTRIM DS 800-160 MG ORAL TABLET 1 tab by mouth twice daily 2015 TRIMETHOPRIM-SULFAMETHOXAZOLE 08792531747 No Longer Active Rbobie Busby MD Active HYDRALAZINE HCL 50 MG ORAL TABLET TWO BY MOUTH THREE TIMES DAILY HYDRALAZINE HCL 02525320464 No Longer Active Rober Rodríguez APRN Active HYDROCODONE-ACETAMINOPHEN 5-325 MG ORAL TABLET 1 tab by mouth BID prn back pain HYDROCODONE-ACETAMINOPHEN 69921706473 No Longer Active Rober Rodríguez APRN Active HYDROCHLOROTHIAZIDE TABLET Take one by mouth daily HYDROCHLOROTHIAZIDE TABS 25117697508 No Longer Active Jillina Frazell ASSISTANT REAL ESTATE MANAGER Active LAMISIL 125 MG ORAL PACKET 1 TAB PO DAILY TERBINAFINE HCL 68617595392 No Longer Active Jillina Frazell ASSISTANT REAL ESTATE MANAGER Active TRILEPTAL 150 MG ORAL TABLET 1 TAB PO Q HS OXCARBAZEPINE 95580500636 No Longer Active Jillina Frazell ASSISTANT REAL ESTATE MANAGER Active BETADINE 10 % EXTERNAL SOLUTION wash with solution to treat follicultis 07/29 POVIDONE-IODINE 47167279406 No Longer Active Jillina Frazell ASSISTANT REAL ESTATE MANAGER Active NYSTATIN 270410 UNIT/ML MOUTH/THROAT SUSPENSION 5mL po QID x 10 days NYSTATIN 32440385959 No Longer Active Erin Mai APRN Active PREDNISONE 20 MG ORAL TABLET 1 tablet twice daily for 2 days, then 1 tablet once daily for 2 days PREDNISONE 15657567066 No Longer Active Robbie Busby MD Active CEFDINIR 300 MG ORAL CAPSULE Take 1 cap po bid x 10 days CEFDINIR 75031934508 No Longer Active Robbie Busby MD Active AMLODIPINE BESYLATE 10 MG ORAL TABLET 1 tablet by mouth daily AMLODIPINE BESYLATE 93304294066 Active Robbie Busby MD Active CARVEDILOL 25 MG ORAL TABLET 1 & 1/2 TAB po BID CARVEDILOL 51997584519 Active Robbie Busby MD Active NEXIUM 40 MG ORAL CAPSULE DELAYED RELEASE 1 cap by mouth daily ESOMEPRAZOLE MAGNESIUM 73564779287 Active Robbie Busby MD Active PROTONIX 40 MG INTRAVENOUS SOLUTION RECONSTITUTED 1 po qday for acid reflux PANTOPRAZOLE SODIUM 55770799796 No Longer Active Gali Raida Active KEFLEX 500 MG ORAL CAPSULE 1 po TID x 10 days CEPHALEXIN 41556445963 No Longer Active Robbie Busby MD Active ALPRAZOLAM 2 MG ORAL TABLET 1 TAB PO BID ALPRAZOLAM 78732899863 Active Robbie Busby MD Active FENOFIBRATE 145 MG ORAL TABLET Take one by mouth daily FENOFIBRATE 06218127951 No Longer Active Robbie Busby MD Active SPIRONOLACTONE 50 MG ORAL TABLET 1 tablet by mouth twice a day SPIRONOLACTONE 01148147478 No Longer Active Robbie Busby MD Active HYDRALAZINE HCL 25 MG ORAL TABLET 1 tablet by mouth tid for hypertension 2013 HYDRALAZINE HCL 38881845192 No Longer Active Robbie Busby MD Active VIIBRYD 40 MG ORAL TABLET take 1 tab po qday for depression. 2014 VILAZODONE HCL 59953304918 No Longer Active Robbie Busby MD Active TERBINAFINE HCL 250 MG ORAL TABLET 1 tab po qday for foot infection TERBINAFINE HCL 45506160094 No Longer Active Robbie Busby MD Active GABAPENTIN 300 MG ORAL CAPSULE 1 po q hs for nerve pain GABAPENTIN 10811469518 Active Robbie Busby MD Active CHERATUSSIN AC 100-10 MG/5ML ORAL SOLUTION 7.5 mL PO q 4-6 hrs PRN cough 2014 GUAIFENESIN-CODEINE 09841165451 No Longer Active Robbie Busby MD Active AZITHROMYCIN 250 MG ORAL TABLET 2 tablets PO today---then, 1 tablet PO daily x 4 more days (and 1 optional refill) AZITHROMYCIN 90905843868 No Longer Active Robbie Busby MD Active NORVASC 10 MG ORAL TABLET 1 tablet by mouth daily AMLODIPINE BESYLATE 70596067069 No Longer Active Alex ALVAREZ Active ISOSORBIDE DINITRATE 30 MG ORAL TABLET Take one by mouth daily ISOSORBIDE DINITRATE 83721241845 No Longer Active Robbie Busby MD Active VIIBRYD 40 MG ORAL TABLET 1 TA B PO DAILY VILAZODONE HCL 80395630052 Active Robbie Busby MD Active ZITHROMAX 250 MG ORAL TABLET 2 po today, then 1 po q days 2-5 AZITHROMYCIN 41746154734 No Longer Active Robbie Busby MD Active DOXAZOSIN MESYLATE 4 MG ORAL TABLET Take one by mouth daily DOXAZOSIN MESYLATE 56525507513 Active Robbie Busby MD Active VENLAFAXINE HCL ER 150 MG ORAL TABLET EXTENDED RELEASE 24 HOUR Take one by mouth daily VENLAFAXINE HCL 61468411675 Active Robbie Busby MD Active LIPITOR 40 MG ORAL TABLET Take one by mouth daily ATORVASTATIN CALCIUM 19420399053 Active Robbie Busby MD Active ISOSORBIDE DINITRATE 30 MG ORAL TABLET Take one by mouth daily ISOSORBIDE DINITRATE 30 MG ORAL TABLET 406934 ISOSORBIDE DINITRATE Inactive NORVASC 10 MG ORAL TABLET 1 tablet by mouth daily NORVASC 10 MG ORAL TABLET 097986 AMLODIPINE BESYLATE Inactive AZITHROMYCIN 250 MG ORAL TABLET 2 tablets PO today---then, 1 tablet PO daily x 4 more days (and 1 optional refill) AZITHROMYCIN 250 MG ORAL TABLET 924327 AZITHROMYCIN Inactive CHERATUSSIN AC 100-10 MG/5ML ORAL SOLUTION 7.5 mL PO q 4-6 hrs PRN cough 2014 CHERATUSSIN AC 100-10 MG/5ML ORAL SOLUTION 700377 GUAIFENESIN-CODEINE Inactive VIIBRYD 40 MG ORAL TABLET take 1 tab po qday for depression. 2014 VIIBRYD 40 MG ORAL TABLET VILAZODONE HCL Inactive HYDRALAZINE HCL 25 MG ORAL TABLET 1 tablet by mouth tid for hypertension 2013 HYDRALAZINE HCL 25 MG ORAL TABLET 969655 HYDRALAZINE HCL Inactive SPIRONOLACTONE 50 MG ORAL TABLET 1 tablet by mouth twice a day SPIRONOLACTONE 50 MG ORAL TABLET 814644 SPIRONOLACTONE Inactive FENOFIBRATE 145 MG ORAL TABLET Take one by mouth daily FENOFIBRATE 145 MG ORAL TABLET 701650 FENOFIBRATE Inactive PROTONIX 40 MG INTRAVENOUS SOLUTION RECONSTITUTED 1 po qday for acid reflux PROTONIX 40 MG INTRAVENOUS SOLUTION RECONSTITUTED 917041 PANTOPRAZOLE SODIUM Inactive CEFDINIR 300 MG ORAL CAPSULE Take 1 cap po bid x 10 days CEFDINIR 300 MG ORAL CAPSULE 121848 CEFDINIR Inactive PREDNISONE 20 MG ORAL TABLET 1 tablet twice daily for 2 days, then 1 tablet once daily for 2 days PREDNISONE 20 MG ORAL TABLET 706282 PREDNISONE Inactive NYSTATIN 575002 UNIT/ML MOUTH/THROAT SUSPENSION 5mL po QID x 10 days NYSTATIN 871399 UNIT/ML MOUTH/THROAT SUSPENSION 174785 NYSTATIN Inactive BETADINE 10 % EXTERNAL SOLUTION wash with solution to treat follicultis 07/29 BETADINE 10 % EXTERNAL SOLUTION 5679035 POVIDONE-IODINE Inactive TRILEPTAL 150 MG ORAL TABLET 1 TAB PO Q HS TRILEPTAL 150 MG ORAL TABLET 579964 OXCARBAZEPINE Inactive LAMISIL 125 MG ORAL PACKET 1 TAB PO DAILY LAMISIL 125 MG ORAL PACKET TERBINAFINE HCL Inactive HYDROCHLOROTHIAZIDE TABLET Take one by mouth daily HYDROCHLOROTHIAZIDE TABLET HYDROCHLOROTHIAZIDE TABS Inactive HYDROCODONE-ACETAMINOPHEN 5-325 MG ORAL TABLET 1 tab by mouth BID prn back pain HYDROCODONE-ACETAMINOPHEN 5-325 MG ORAL TABLET 316408 HYDROCODONE-ACETAMINOPHEN Inactive HYDRALAZINE HCL 50 MG ORAL TABLET TWO BY MOUTH THREE TIMES DAILY HYDRALAZINE HCL 50 MG ORAL TABLET 779719 HYDRALAZINE HCL Inactive LEVAQUIN 500 MG ORAL TABLET 1 tablet by mouth daily for 7 days LEVAQUIN 500 MG ORAL TABLET 125484 LEVOFLOXACIN Inactive SPIRONOLACTONE 25 MG ORAL TABLET 4 tablets by mouth daily SPIRONOLACTONE 25 MG ORAL TABLET 916567 SPIRONOLACTONE Inactive MECLIZINE HCL 25 MG ORAL TABLET one 4 times a day as needed for dizziness MECLIZINE HCL 25 MG ORAL TABLET 884691 MECLIZINE HCL Inactive CLONIDINE HCL 0.2 MG ORAL TABLET 1 TAB BY MOUTH EVERY 8 HOURS CLONIDINE HCL 0.2 MG ORAL TABLET 491973 CLONIDINE HCL Inactive CYCLOBENZAPRINE HCL 10 MG ORAL TABLET 1 tablet by mouth three times daily as needed for muscle spasm/pain for 10 days CYCLOBENZAPRINE HCL 10 MG ORAL TABLET 353002 CYCLOBENZAPRINE HCL Inactive VITAMIN D3 74363 UNIT ORAL CAPSULE 2 CAPS PO WEEKLY VITAMIN D3 94455 UNIT ORAL CAPSULE CHOLECALCIFEROL Inactive FIORICET 50-300-40 MG ORAL CAPSULE take 1 tab po qday prn migraines. FIORICET 50-300-40 MG ORAL CAPSULE 039318 BUTALBITAL-APAP- CAFFEINE Inactive FLONASE 50 MCG/ACT NASAL SUSPENSION 1 spray each nostril twice daily for allergies and runny nose FLONASE 50 MCG/ACT NASAL SUSPENSION 6398845 FLUTICASONE PROPIONATE Inactive LORATADINE 10 MG ORAL TABLET 1 tablet by mouth daily for congestion and allergies. LORATADINE 10 MG ORAL TABLET 993509 LORATADINE Inactive NITROSTAT 0.4 MG SUBLINGUAL TABLET SUBLINGUAL PRN NITROSTAT 0.4 MG SUBLINGUAL TABLET SUBLINGUAL 604607 NITROGLYCERIN Inactive GUAIFENESIN ER 600 MG ORAL TABLET EXTENDED RELEASE 12 HOUR 1 tab po q am 2016 GUAIFENESIN ER 600 MG ORAL TABLET EXTENDED RELEASE 12 HOUR GUAIFENESIN Inactive CYCLOBENZAPRINE HCL 10 MG ORAL TABLET 1 po TID PRN muscle spasm/pain for 10 days CYCLOBENZAPRINE HCL 10 MG ORAL TABLET 120268 CYCLOBENZAPRINE HCL Inactive TOPIRAMATE 50 MG ORAL TABLET take 1 tab po BID for migraines. TOPIRAMATE 50 MG ORAL TABLET 949273 TOPIRAMATE Inactive PREDNISONE 20 MG ORAL TABLET two tabs by mouth today, then one tab by mouth days two and three PREDNISONE 20 MG ORAL TABLET 565740 PREDNISONE Inactive TOPROL XL 200 MG ORAL TABLET EXTENDED RELEASE 24 HOUR Take one by mouth daily TOPROL XL 200 MG ORAL TABLET EXTENDED RELEASE 24 HOUR METOPROLOL SUCCINATE Inactive CYCLOBENZAPRINE HCL 10 MG ORAL TABLET 1 tablet by mouth three times daily as needed for muscle spasm/pain CYCLOBENZAPRINE HCL 10 MG ORAL TABLET 293953 CYCLOBENZAPRINE HCL Inactive TOPIRAMATE 50 MG ORAL TABLET 1 po BID for migraines TOPIRAMATE 50 MG ORAL TABLET 360461 TOPIRAMATE Inactive TEMAZEPAM 15 MG ORAL CAPSULE 1 TAB PO Q HS TEMAZEPAM 15 MG ORAL CAPSULE 003635 TEMAZEPAM Inactive IMDUR 60 MG ORAL TABLET EXTENDED RELEASE 24 HOUR take 1 tab po qday for blood pressure IMDUR 60 MG ORAL TABLET EXTENDED RELEASE 24 HOUR ISOSORBIDE MONONITRATE Inactive [id number]-3 0.3 MG/24HR TRANSDERMAL PATCH WEEKLY apply 2 patches q week for HTN [id number]-[id number]-5 0.3 MG/24HR TRANSDERMAL PATCH WEEKLY 850209 CLONIDINE HCL Inactive ZITHROMAX 250 MG ORAL TABLET 2 po today, then 1 po q days 2-5 ZITHROMAX 250 MG ORAL TABLET 663055 AZITHROMYCIN Inactive TERBINAFINE HCL 250 MG ORAL TABLET 1 tab po qday for foot infection TERBINAFINE HCL 250 MG ORAL TABLET 891414 TERBINAFINE HCL Inactive KEFLEX 500 MG ORAL CAPSULE 1 po TID x 10 days KEFLEX 500 MG ORAL CAPSULE 939669 CEPHALEXIN Inactive BACTRIM DS 800-160 MG ORAL TABLET 1 tab by mouth twice daily 2015 BACTRIM DS 800-160 MG ORAL TABLET 423075 TRIMETHOPRIM- SULFAMETHOXAZOLE Inactive PREDNISONE 20 MG ORAL TABLET take 3 tabs daily for 3 days, 2 tabs daily for 3 days, 1 tab daily for 3 days, 1/2 tab daily for 4 days PREDNISONE 20 MG ORAL TABLET 203037 PREDNISONE Inactive AZITHROMYCIN 250 MG ORAL TABLET 2 po qd x 1 day, then 1 po qd x 4 days 09/20 AZITHROMYCIN 250 MG ORAL TABLET 944526 AZITHROMYCIN Inactive SINGULAIR 10 MG ORAL TABLET 1 po qday for allergies. SINGULAIR 10 MG ORAL TABLET 114370 MONTELUKAST SODIUM Inactive PREDNISONE 20 MG ORAL TABLET 2 po qd x 5 days PREDNISONE 20 MG ORAL TABLET 412591 PREDNISONE Inactive Advance Directives Directive Description Start [...] AUTO - Chemistry sodium, serum 142 mmol/L 334-057 4831/07/17 carbon dioxide, venous blood 28.2 mmol/L 21.0-32.0 [...] % 11.6-14.8 platelet count 239 10^3/MM^3 10*3/mm3 265-288 4350/07/17 lymphocytes as percent of blood leukocytes 35.6 [...] Lab Report: Comp. Metabolic Panel - Chemistry urea nitrogen, blood 25 mg/dL 7-18 creatinine, serum 1.48 mg/dL 0.60-1.30 alanine aminotransferase (SGPT), serum 40 U/L 12-78 aspartate aminotransferase (SGOT), serum 22 U/L 15-37 calcium, serum 9.7 mg/dL 8.5-10.1 bilirubin, serum, total 0.60 mg/dL 0.00-1.00 sodium, serum 141 mmol/L 560-093 3642/02/13 carbon dioxide, venous blood 23.9 mmol/L 21.0-32.0 potassium, serum 4.5 mmol/L 3.5-5.2 chloride, serum 104 mmol/L 98-107 blood glucose 119 mg/dL 65-110 Lab Report: HGBA1C, Basic Metabolic Panel - Chemistry hemoglobin A1C, blood, as % of total hemoglobin 6.9 % 4.3-6.0 sodium, serum 139 mmol/L 833-339 2988/01/04 potassium, serum 3.9 mmol/L 3.5-5.2 chloride, serum [...] 1.80 ng/mL 0.00-4.00 Lab Report: VITAMIN D, 25-HYDROXY/13792 - Chemistry vitamin D 25-hydroxy, serum 25 ng/mL 30-100 Encounters Code Encounter Date Provider Facility CPT-12688 Level 3 Est. Patient 13:59:07 CDT Renny Bella MD [facility] CPT-58580 Level 3 Est. Patient 16:04:17 CDT Robbie Busby MD [facility]-15785 Level 4 Est. Patient 09:50:01 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 Robbie Busby MD [facility] CPT-92805 Level 4 Est. Patient 09:42:08 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 Robbie Busby MD [facility]-18921 Level 4 Est. Patient 13:07:39 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 Robbie Busby MD [facility]-22259 Level 4 Est. Patient 15:23:44 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 Desmond Diaz DO [facility] CPT-83236 Level 3 Est. Patient 15:40:49 CDT Robbie Busby MD [facility]-55520 Level 4 Est. Patient 15:18:19 CDT Robbie Busby MD [facility]-92576 Level 3 Est. Patient 09:00:37 CDT Rober Rodríguez [facility]-98235 Level 3 Est. Patient 16:07:10 CDT Robbie Busby MD [facility]-04867 Level 4 Est. Patient 11:56:16 CDT Erin Mai [facility] CPT-38472 Level 3 Est. Patient 17:48:02 CDT Robbie Busby MD [facility]-99993 Level 4 Est. Patient 12:00:49 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 Rober Rodríguez [facility] CPT-12671 Level 3 Est. Patient 09:16:37 CDT Robbie Busby MD [facility]-44104 Level 3 Est. Patient 19:38:43 CDT Robbie Busby MD [facility]-34713 Level 3 Est. Patient 11:53:38 CDT Robbie Busby MD [facility] CPT-10810 Level 4 Est. Patient 12:52:22 CDT Rober Reynoldsneha ARGUELLO [facility] CPT-68805 Level 4 Est. Patient 22:55:17 CDT Robbie Busby MD [facility]-25554 Level 3 Est. Patient 12:38:24 CDT Desmond Diaz DO [facility] CPT-86192 Level 4 Est. Patient 11:25:03 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 Robbie Busby MD [facility] CPT-77410 Level 4 Est. Patient 14:50:10 CDT Robbie Busby MD [facility] CPT-12987 Level 4 Est. Patient 23:30:43 CDT Robbie Busby MD [facility] CPT-58736 Level 4 Est. Patient 10:30:43 CDT Robbie Busby MD [facility] CPT-75668 Level 3 Est. Patient 17:08:12 CDT Alex Shaw [facility] CPT-41125 Level 4 Est. Patient 17:51:38 CDT Robbie Busby MD [facility] CPT-81331 Level 4 Est. Patient 14:00:21 CDT Robbie Busby MD [facility] CPT-11848 Level 4 Est. Patient 12:46:48 CDT Robbie Busby MD [facility] CPT-97498 Level 4 Est. Patient 13:34:33 CDT Robbie Busby MD [facility] CPT-03514 Level 4 Est. Patient 16:58:28 CDT Robbie Busby MD [facility] CPT-14332 Level 3 Est. Patient 19:36:53 CDT Alex Shaw [facility] CPT-89880 Level 3 Est. Patient 12:58:15 CDT Robbie Busby MD [facility] Procedures Code Procedure Name Date Entry Date Standard Description CPT-J1071 Depo Testosterone 200mg 16:17:45 CDT CPT-87341 Abx/Therapy Injection 16:17:45 CDT CPT-J1100 Decadron 8mg (Dexamethasone) 16:07:00 CDT CPT-J1040 Depo Medrol 80 mg (Methyl Prednisolone Acetate) 16:07: 00 CDT CPT-J1071 Depo Testosterone 200mg 09:01:06 CDT CPT-12820 Abx/Therapy Injection 09:01:06 CDT CPT-J1100 Decadron 8mg (Dexamethasone) 16:04:17 CDT CPT-J1040 Depo Medrol 80 mg (Methyl Prednisolone Acetate) 16:04: 17 CDT CPT-J1071 Depo Testosterone 200mg 08:56:46 CDT CPT-23948 Abx/Therapy Injection 08:56:45 CDT CPT-J1071 Depo Testosterone 200mg 08:26:27 CDT CPT-35452 Abx/Therapy Injection 08:26:27 CDT CPT-J1071 Depo Testosterone 200mg 10:27:10 CDT CPT-39618 Abx/Therapy Injection 10:27:10 CDT CPT-J1071 Depo Testosterone 200mg 16:10:29 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 CPT-88719 Abx/Therapy Injection 16:10:29 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 CPT-J1071 Depo Testosterone 200mg 16:13:47 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 CPT-74442 Abx/Therapy Injection 16:13:46 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 CPT-J1071 Depo Testosterone 200mg 15:33:58 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 CPT-50694 Abx/Therapy Injection 15:33:58 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 CPT-J1071 Depo Testosterone 200mg 09:38:36 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 CPT-50702 Abx/Therapy Injection 09:38:36 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 CPT-J1071 Depo Testosterone 200mg 10:22:56 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 CPT-78906 Abx/Therapy Injection 10:22:56 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 CPT-J1071 Depo Testosterone 200mg 15:40:23 CDT CPT-45352 Abx/Therapy Injection 15:40:23 CDT CPT-J1071 Depo Testosterone 200mg 14:20:43 CDT CPT-12143 Abx/Therapy Injection 14:20:43 CDT CPT-J1071 Depo Testosterone 200mg 14:17:22 CDT CPT-98694 Abx/Therapy Injection 14:17:22 CDT CPT-J1071 Depo Testosterone 200mg 09:03:53 CDT CPT-47900 Abx/Therapy Injection 09:03:53 CDT CPT-G0439 [facility] Annual Wellness Exam 16:47:44 CDT CPT-J1071 Depo Testosterone 200mg 09:06:28 CDT CPT-73782 Abx/Therapy Injection 09:06:28 CDT CPT-J1071 Depo Testosterone 200mg 08:30:01 CDT CPT-28047 Abx/Therapy Injection 08:30:01 CDT CPT-J1071 Depo Testosterone 200mg 08:24:00 CDT CPT-28448 Abx/Therapy Injection 08:24:00 CDT CPT-61749 Venipuncture Draw Fee 14:39:06 CDT CPT-10676 Ribs unilateral 2V - XRAY USE ONLY 12:10:11 CDT CPT-91059 First Vx - Ix admin for Medicare patients 16:32:53 CDT CPT-84275 Boostrix Intramuscular Suspension 5-2.5-18.5 16:32:53 CDT CPT-56493 TB Skin Test 11:42:28 CDT CPT-48736 Tdap 7yrs or > 11:42:28 CDT CPT-J0696 Rocephin 1000 mg (Ceftriaxone) 17:43:43 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 CPT-J1040 Depo Medrol 80 mg (Methyl Prednisolone Acetate) 17:43: 43 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 CPT-J1100 Decadron 8mg (Dexamethasone) 17:43:42 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 CPT-81303 Abx/Therapy Injection 17:43:42 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 CPT-56242 Abx/Therapy Injection 17:43:42 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 CPT-J1040 Depo Medrol 80 mg (Methyl Prednisolone Acetate) 09:43: 34 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 CPT-J1100 Decadron 8mg (Dexamethasone) 09:43:34 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 CPT-J0696 Rocephin 1gm Inj Solr 09:43:34 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 CPT-45153 Wound Culture - LAB USE ONLY 14:00:21 CDT CPT-I/D I/D Abscess 09:16:37 CDT CPT-32355 Venipuncture Draw Fee 15:20:23 CDT CPT-18657 Microalbumin - LAB USE ONLY 16:02:19 CDT CPT-64893 CBC - LAB USE ONLY 16:02:19 CDT CPT-42591 Venipuncture Draw Fee 16:02:19 CDT CPT-G0438 Initial Annual Wellness Exam 08:10:28 CDT CPT-07183 Venipuncture Draw Fee 13:07:17 CDT CPT-G0008 Administration of Influenza Virus Vaccine 16:09:59 CDT CPT-68440 Fluzone Quadrivalent Intramuscular Suspension 0.5 ML 16: 09:59 CDT CPT-40694 Spec Collection and Handling Fee 15:05:50 CDT
--- OUTSIDE RECORDS SUMMARY | 2018-04-18 15:06 | XMS REPORT | Clinical Summary ---
Author Author Admin, Nicolas Organization 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 Desmond Diaz DO Other malignant secondary hypertension Tachycardia 785.0 Active Rober Rodríguez OPHTHALMOLOGY ASSISTANT Tachycardia, unspecified Insect bite, infected 919.5 Resolved Desmond Diaz DO Insect bite, nonvenomous, of other, multiple, and unspecified sites, infected Abscess, skin 682.9 Resolved Desmond Diaz DO Cellulitis and abscess of unspecified sites URI 465.9 Resolved Desmond Diaz DO Acute upper respiratory infections of unspecified site Hypertension 401.9 Active Rober Rodríguez OPHTHALMOLOGY ASSISTANT Unspecified essential hypertension Sinusitis - acute 461.9 Resolved Desmond W Joe DO Acute sinusitis, unspecified Acute confusion 293.0 Resolved Desmond W Joe DO Delirium due to conditions classified elsewhere Headache 784.0 Resolved Desmond W Joe DO Headache Back pain 724.5 Resolved Dsemond W Joe DO Backache , unspecified Back [...] Hypogonadism, low testosterone 257.2 Active Erin Mai OPHTHALMOLOGY ASSISTANT Other testicular hypofunction Low back pain, chronic [...] 37.0-37.9, adult Sinusitis ICD-461.9 Inactive Emily Atwood FOOT SPECIALIST 2017 Low back pain, acute ICD-724.2 Inactive Emily Atwood FOOT SPECIALIST Low back pain, chronic ICD-724.2 Inactive Emily Atwood FOOT SPECIALIST Bronchitis, acute ICD-466.0 Inactive Emily Atwood FOOT SPECIALIST Onychomycosis, toenails ICD-110.1 Inactive Emily Atwood FOOT SPECIALIST Dizziness ICD-780.4 Inactive Emily Atwood FOOT SPECIALIST 2017 Folliculitis ICD-704.8 Inactive Emily Atwood FOOT SPECIALIST Pharyngitis-Acute ICD-462 Inactive Emily Atwood FOOT SPECIALIST Fatigue ICD-780.79 Inactive Emily Atwood FOOT SPECIALIST 09/20 Hypertension, secondary, malignant ICD-405.09 Inactive Emily Atwood FOOT SPECIALIST Insect bite, infected ICD-919.5 Inactive Emily Atwood FOOT SPECIALIST Abscess, skin ICD-682.9 Inactive Emily Atwood FOOT SPECIALIST URI ICD-465.9 Inactive Emily Atwood FOOT SPECIALIST Sinusitis - acute ICD-461.9 Inactive Emily Atwood FOOT SPECIALIST Acute confusion ICD-293.0 Inactive Emily Atwood FOOT SPECIALIST Headache ICD-784.0 Inactive Emily Rai CISSE 09/20 [...] HOUR 1 po q day ISOSORBIDE MONONITRATE 00797509798 Active Emma Hernandez Active METOPROLOL SUCCINATE ER 200 MG ORAL TABLET EXTENDED RELEASE 24 HOUR take 1 tab po qday for high blood pressure and rapid pulse METOPROLOL SUCCINATE 56054095794 Active Robbie Busby MD Active [id number] 0.3 MG/24HR TRANSDERMAL PATCH WEEKLY apply 2 patches q week for HTN CLONIDINE HCL 63903507035 No Longer Active Robbie Busby MD Active IMDUR 60 MG ORAL TABLET EXTENDED RELEASE 24 HOUR take 1 tab po qday for blood pressure ISOSORBIDE MONONITRATE 96943365472 No Longer Active Robbie Busby MD Active TEMAZEPAM 15 MG ORAL CAPSULE 1 TAB PO Q HS TEMAZEPAM 71645740947 No Longer Active Robbie Busby MD Active TOPIRAMATE 50 MG ORAL TABLET 1 po BID for migraines TOPIRAMATE 08682122129 No Longer Active Robbie Busby MD Active CYCLOBENZAPRINE HCL 10 MG ORAL TABLET 1 tablet by mouth three times daily as needed for muscle spasm/pain CYCLOBENZAPRINE HCL 52606134407 No Longer Active Robbie Busby MD Active TOPROL XL 200 MG ORAL TABLET EXTENDED RELEASE 24 HOUR Take one by mouth daily METOPROLOL SUCCINATE 68600986001 No Longer Active Robbie Busby MD Active METFORMIN HCL 500 MG ORAL TABLET 1 tablet by mouth daily for diabetes type 2 METFORMIN HCL 30853470517 Active Robbie Busby MD Active SINGULAIR 10 MG ORAL TABLET 1 po qday for allergies. MONTELUKAST SODIUM 40447263642 No Longer Active Robbie Busby MD Active PREDNISONE 20 MG ORAL TABLET two tabs by mouth today, then one tab by mouth days two and three PREDNISONE 92274660772 No Longer Active Robbie Busby MD Active AZITHROMYCIN 250 MG ORAL TABLET 2 po qd x 1 day, then 1 po qd x 4 days 09/20 AZITHROMYCIN 09253412033 No Longer Active Desmond Diaz DO Active TOPIRAMATE 50 MG ORAL TABLET take 1 tab po BID for migraines. TOPIRAMATE 99302854997 No Longer Active Desmond Diaz DO Active CYCLOBENZAPRINE HCL 10 MG ORAL TABLET 1 po TID PRN muscle spasm/pain for 10 days CYCLOBENZAPRINE HCL 07917280613 No Longer Active Desmond Diaz DO Active GUAIFENESIN ER 600 MG ORAL TABLET EXTENDED RELEASE 12 HOUR 1 tab po q am 2016 GUAIFENESIN 86036096917 No Longer Active Robbie Busby MD Active DIVALPROEX SODIUM ER 500 MG ORAL TABLET EXTENDED RELEASE 24 HOUR Once daily DIVALPROEX SODIUM 89073196198 Active Robbie Busby MD Active DEPO-TESTOSTERONE 200 MG/ML INTRAMUSCULAR SOLUTION 1 IM Injections every 2 weeks for low testosterone TESTOSTERONE CYPIONATE 00611436327 Active Zulema Blank LPN Active FLUTICASONE PROPIONATE 50 MCG/ACT NASAL SUSPENSION 2 sprays per nostril bid for 1 week, then 1 spray bid FLUTICASONE PROPIONATE 99484736699 Active Rober Rodríguez APRN Active HYDRALAZINE HCL 25 MG ORAL TABLET Take 1 tab BID. HYDRALAZINE HCL 10950989560 Active Rober Rodríguez APRN Active VITAMIN D3 92260 UNIT ORAL TABLET 2 po weekly CHOLECALCIFEROL 15677890181 Active Robbie Busby MD Active OXYCODONE HCL ER 10 MG ORAL TABLET ER 12 HOUR ABUSE-DETERRENT 1 tab po 3 times qd. OXYCODONE HCL 33379333576 Active Robbie Bsuby MD Active NITROSTAT 0.4 MG SUBLINGUAL TABLET SUBLINGUAL PRN NITROGLYCERIN 73366264263 No Longer Active Robbie Busby MD Active LORATADINE 10 MG ORAL TABLET 1 tablet by mouth daily for congestion and allergies. LORATADINE 16450044223 No Longer Active Robbie Busby MD Active FLONASE 50 MCG/ACT NASAL SUSPENSION 1 spray each nostril twice daily for allergies and runny nose FLUTICASONE PROPIONATE 93229747600 No Longer Active Robbie Busby MD Active FIORICET 50-300-40 MG ORAL CAPSULE take 1 tab po qday prn migraines. [id number] 45603074002 No Longer Active Robbie Busby MD Active VITAMIN D3 74973 UNIT ORAL CAPSULE 2 CAPS PO WEEKLY CHOLECALCIFEROL 21626897566 No Longer Active Robbie Busby MD Active CYCLOBENZAPRINE HCL 10 MG ORAL TABLET 1 tablet by mouth three times daily as needed for muscle spasm/pain for 10 days CYCLOBENZAPRINE HCL 60257539491 No Longer Active Robbie Busby MD Active PREDNISONE 20 MG ORAL TABLET take 3 tabs daily for 3 days, 2 tabs daily for 3 days, 1 tab daily for 3 days, 1/2 tab daily for 4 days PREDNISONE 11480731527 No Longer Active Erin Mai APRN Active CLONIDINE HCL 0.2 MG ORAL TABLET 1 TAB BY MOUTH EVERY 8 HOURS CLONIDINE HCL 07951330478 No Longer Active Erin Mai APRN Active MECLIZINE HCL 25 MG ORAL TABLET one 4 times a day as needed for dizziness MECLIZINE HCL 90577903544 No Longer Active Erin Mai APRN Active SPIRONOLACTONE 25 MG ORAL TABLET 4 tablets by mouth daily SPIRONOLACTONE 10582472868 No Longer Active Erin Riverall OPHTHALMOLOGY ASSISTANT Active LEVAQUIN 500 MG ORAL TABLET 1 tablet by mouth daily for 7 days LEVOFLOXACIN 97391949160 No Longer Active Erin Mai OPHTHALMOLOGY ASSISTANT Active BACTRIM DS 800-160 MG ORAL TABLET 1 tab by mouth twice daily 2015 TRIMETHOPRIM-SULFAMETHOXAZOLE 61868014529 No Longer Active Robbie Busby MD Active HYDRALAZINE HCL 50 MG ORAL TABLET TWO BY MOUTH THREE TIMES DAILY HYDRALAZINE HCL 06309222221 No Longer Active Jillina Frazell OPHTHALMOLOGY ASSISTANT Active HYDROCODONE-ACETAMINOPHEN 5-325 MG ORAL TABLET 1 tab by mouth BID prn back pain HYDROCODONE-ACETAMINOPHEN 98956155727 No Longer Active Jillina Frazell OPHTHALMOLOGY ASSISTANT Active HYDROCHLOROTHIAZIDE TABLET Take one by mouth daily HYDROCHLOROTHIAZIDE TABS 82862750991 No Longer Active Jillina Frazell OPHTHALMOLOGY ASSISTANT Active LAMISIL 125 MG ORAL PACKET 1 TAB PO DAILY TERBINAFINE HCL 46927482215 No Longer Active Jillina Frazell OPHTHALMOLOGY ASSISTANT Active TRILEPTAL 150 MG ORAL TABLET 1 TAB PO Q HS OXCARBAZEPINE 00017898908 No Longer Active Jillina Frazell OPHTHALMOLOGY ASSISTANT Active BETADINE 10 % EXTERNAL SOLUTION wash with solution to treat follicultis 07/29 POVIDONE-IODINE 66165176217 No Longer Active Jillina Frazell OPHTHALMOLOGY ASSISTANT Active NYSTATIN 766887 UNIT/ML MOUTH/THROAT SUSPENSION 5mL po QID x 10 days NYSTATIN 30899442117 No Longer Active Erin Mai OPHTHALMOLOGY ASSISTANT Active PREDNISONE 20 MG ORAL TABLET 1 tablet twice daily for 2 days, then 1 tablet once daily for 2 days PREDNISONE 58616962538 No Longer Active Robbie Busby MD Active CEFDINIR 300 MG ORAL CAPSULE Take 1 cap po bid x 10 days CEFDINIR 04582281980 No Longer Active Robbie Busby MD Active AMLODIPINE BESYLATE 10 MG ORAL TABLET 1 tablet by mouth daily AMLODIPINE BESYLATE 27110609422 Active Robbie Busby MD Active CARVEDILOL 25 MG ORAL TABLET 1 & 1/2 TAB po BID CARVEDILOL 99587343438 Active Robbie Busby MD Active NEXIUM 40 MG ORAL CAPSULE DELAYED RELEASE 1 cap by mouth daily ESOMEPRAZOLE MAGNESIUM 98942654739 Active Robbie Busby MD Active PROTONIX 40 MG INTRAVENOUS SOLUTION RECONSTITUTED 1 po qday for acid reflux PANTOPRAZOLE SODIUM 06678335692 No Longer Active Galileonila Negro Active KEFLEX 500 MG ORAL CAPSULE 1 po TID x 10 days CEPHALEXIN 90800976740 No Longer Active Robbie Busby MD Active ALPRAZOLAM 2 MG ORAL TABLET 1 TAB PO BID ALPRAZOLAM 18723842948 Active Robbie Busby MD Active FENOFIBRATE 145 MG ORAL TABLET Take one by mouth daily FENOFIBRATE 57365195403 No Longer Active Robbie Busby MD Active SPIRONOLACTONE 50 MG ORAL TABLET 1 tablet by mouth twice a day SPIRONOLACTONE 92343676381 No Longer Active Robbie Busby MD Active HYDRALAZINE HCL 25 MG ORAL TABLET 1 tablet by mouth tid for hypertension 2013 HYDRALAZINE HCL 11045017747 No Longer Active Robbie Busby MD Active VIIBRYD 40 MG ORAL TABLET take 1 tab po qday for depression. 2014 VILAZODONE HCL 33288595247 No Longer Active Robbie Busby MD Active TERBINAFINE HCL 250 MG ORAL TABLET 1 tab po qday for foot infection TERBINAFINE HCL 41898425552 No Longer Active Robbie Busby MD Active GABAPENTIN 300 MG ORAL CAPSULE 1 po q hs for nerve pain GABAPENTIN 85522647544 Active Robbie Busby MD Active CHERATUSSIN AC 100-10 MG/5ML ORAL SOLUTION 7.5 mL PO q 4-6 hrs PRN cough 2014 GUAIFENESIN-CODEINE 03891534320 No Longer Active Robbie Busby MD Active AZITHROMYCIN 250 MG ORAL TABLET 2 tablets PO today---then, 1 tablet PO daily x 4 more days (and 1 optional refill) AZITHROMYCIN 77878741361 No Longer Active Robbie Busby MD Active NORVASC 10 MG ORAL TABLET 1 tablet by mouth daily AMLODIPINE BESYLATE 80069806731 No Longer Active Alex ALVAREZ Active ISOSORBIDE DINITRATE 30 MG ORAL TABLET Take one by mouth daily ISOSORBIDE DINITRATE 11021424591 No Longer Active Robbie Busby MD Active VIIBRYD 40 MG ORAL TABLET 1 TA B PO DAILY VILAZODONE HCL 18528309499 Active Robbie Busby MD Active ZITHROMAX 250 MG ORAL TABLET 2 po today, then 1 po q days 2-5 AZITHROMYCIN 72103042247 No Longer Active Robbie Busby MD Active DOXAZOSIN MESYLATE 4 MG ORAL TABLET Take one by mouth daily DOXAZOSIN MESYLATE 65303989891 Active Robbie Busby MD Active VENLAFAXINE HCL ER 150 MG ORAL TABLET EXTENDED RELEASE 24 HOUR Take one by mouth daily VENLAFAXINE HCL 03508004253 Active Robbie Busby MD Active LIPITOR 40 MG ORAL TABLET Take one by mouth daily ATORVASTATIN CALCIUM 18562597399 Active Robbie Busby MD Active ISOSORBIDE DINITRATE 30 MG ORAL TABLET Take one by mouth daily ISOSORBIDE DINITRATE 30 MG ORAL TABLET 140788 ISOSORBIDE DINITRATE Inactive NORVASC 10 MG ORAL TABLET 1 tablet by mouth daily NORVASC 10 MG ORAL TABLET 292598 AMLODIPINE BESYLATE Inactive AZITHROMYCIN 250 MG ORAL TABLET 2 tablets PO today---then, 1 tablet PO daily x 4 more days (and 1 optional refill) AZITHROMYCIN 250 MG ORAL TABLET 358161 AZITHROMYCIN Inactive CHERATUSSIN AC 100-10 MG/5ML ORAL SOLUTION 7.5 mL PO q 4-6 hrs PRN cough 2014 CHERATUSSIN AC 100-10 MG/5ML ORAL SOLUTION 869371 GUAIFENESIN-CODEINE Inactive VIIBRYD 40 MG ORAL TABLET take 1 tab po qday for depression. 2014 VIIBRYD 40 MG ORAL TABLET VILAZODONE HCL Inactive HYDRALAZINE HCL 25 MG ORAL TABLET 1 tablet by mouth tid for hypertension 2013 HYDRALAZINE HCL 25 MG ORAL TABLET 526469 HYDRALAZINE HCL Inactive SPIRONOLACTONE 50 MG ORAL TABLET 1 tablet by mouth twice a day SPIRONOLACTONE 50 MG ORAL TABLET 902261 SPIRONOLACTONE Inactive FENOFIBRATE 145 MG ORAL TABLET Take one by mouth daily FENOFIBRATE 145 MG ORAL TABLET 165964 FENOFIBRATE Inactive PROTONIX 40 MG INTRAVENOUS SOLUTION RECONSTITUTED 1 po qday for acid reflux PROTONIX 40 MG INTRAVENOUS SOLUTION RECONSTITUTED 550962 PANTOPRAZOLE SODIUM Inactive CEFDINIR 300 MG ORAL CAPSULE Take 1 cap po bid x 10 days CEFDINIR 300 MG ORAL CAPSULE 504322 CEFDINIR Inactive PREDNISONE 20 MG ORAL TABLET 1 tablet twice daily for 2 days, then 1 tablet once daily for 2 days PREDNISONE 20 MG ORAL TABLET 317291 PREDNISONE Inactive NYSTATIN 721605 UNIT/ML MOUTH/THROAT SUSPENSION 5mL po QID x 10 days NYSTATIN 092996 UNIT/ML MOUTH/THROAT SUSPENSION 691452 NYSTATIN Inactive BETADINE 10 % EXTERNAL SOLUTION wash with solution to treat follicultis 07/29 BETADINE 10 % EXTERNAL SOLUTION 1225702 POVIDONE-IODINE Inactive TRILEPTAL 150 MG ORAL TABLET 1 TAB PO Q HS TRILEPTAL 150 MG ORAL TABLET 931337 OXCARBAZEPINE Inactive LAMISIL 125 MG ORAL PACKET 1 TAB PO DAILY LAMISIL 125 MG ORAL PACKET TERBINAFINE HCL Inactive HYDROCHLOROTHIAZIDE TABLET Take one by mouth daily HYDROCHLOROTHIAZIDE TABLET HYDROCHLOROTHIAZIDE TABS Inactive HYDROCODONE-ACETAMINOPHEN 5-325 MG ORAL TABLET 1 tab by mouth BID prn back pain HYDROCODONE-ACETAMINOPHEN 5-325 MG ORAL TABLET 673038 HYDROCODONE-ACETAMINOPHEN Inactive HYDRALAZINE HCL 50 MG ORAL TABLET TWO BY MOUTH THREE TIMES DAILY HYDRALAZINE HCL 50 MG ORAL TABLET 692576 HYDRALAZINE HCL Inactive LEVAQUIN 500 MG ORAL TABLET 1 tablet by mouth daily for 7 days LEVAQUIN 500 MG ORAL TABLET 823388 LEVOFLOXACIN Inactive SPIRONOLACTONE 25 MG ORAL TABLET 4 tablets by mouth daily SPIRONOLACTONE 25 MG ORAL TABLET 604801 SPIRONOLACTONE Inactive MECLIZINE HCL 25 MG ORAL TABLET one 4 times a day as needed for dizziness MECLIZINE HCL 25 MG ORAL TABLET 487430 MECLIZINE HCL Inactive CLONIDINE HCL 0.2 MG ORAL TABLET 1 TAB BY MOUTH EVERY 8 HOURS CLONIDINE HCL 0.2 MG ORAL TABLET 690443 CLONIDINE HCL Inactive CYCLOBENZAPRINE HCL 10 MG ORAL TABLET 1 tablet by mouth three times daily as needed for muscle spasm/pain for 10 days CYCLOBENZAPRINE HCL 10 MG ORAL TABLET 060607 CYCLOBENZAPRINE HCL Inactive VITAMIN D3 73638 UNIT ORAL CAPSULE 2 CAPS PO WEEKLY VITAMIN D3 38284 UNIT ORAL CAPSULE CHOLECALCIFEROL Inactive FIORICET 50-300-40 MG ORAL CAPSULE take 1 tab po qday prn migraines. FIORICET 50-300-40 MG ORAL CAPSULE 874517 BUTALBITAL-APAP- CAFFEINE Inactive FLONASE 50 MCG/ACT NASAL SUSPENSION 1 spray each nostril twice daily for allergies and runny nose FLONASE 50 MCG/ACT NASAL SUSPENSION 2173765 FLUTICASONE PROPIONATE Inactive LORATADINE 10 MG ORAL TABLET 1 tablet by mouth daily for congestion and allergies. LORATADINE 10 MG ORAL TABLET 222098 LORATADINE Inactive NITROSTAT 0.4 MG SUBLINGUAL TABLET SUBLINGUAL PRN NITROSTAT 0.4 MG SUBLINGUAL TABLET SUBLINGUAL 350155 NITROGLYCERIN Inactive GUAIFENESIN ER 600 MG ORAL TABLET EXTENDED RELEASE 12 HOUR 1 tab po q am 2016 GUAIFENESIN ER 600 MG ORAL TABLET EXTENDED RELEASE 12 HOUR GUAIFENESIN Inactive CYCLOBENZAPRINE HCL 10 MG ORAL TABLET 1 po TID PRN muscle spasm/pain for 10 days CYCLOBENZAPRINE HCL 10 MG ORAL TABLET 951654 CYCLOBENZAPRINE HCL Inactive TOPIRAMATE 50 MG ORAL TABLET take 1 tab po BID for migraines. TOPIRAMATE 50 MG ORAL TABLET 735485 TOPIRAMATE Inactive PREDNISONE 20 MG ORAL TABLET two tabs by mouth today, then one tab by mouth days two and three PREDNISONE 20 MG ORAL TABLET 699346 PREDNISONE Inactive TOPROL XL 200 MG ORAL TABLET EXTENDED RELEASE 24 HOUR Take one by mouth daily TOPROL XL 200 MG ORAL TABLET EXTENDED RELEASE 24 HOUR METOPROLOL SUCCINATE Inactive CYCLOBENZAPRINE HCL 10 MG ORAL TABLET 1 tablet by mouth three times daily as needed for muscle spasm/pain CYCLOBENZAPRINE HCL 10 MG ORAL TABLET 973628 CYCLOBENZAPRINE HCL Inactive TOPIRAMATE 50 MG ORAL TABLET 1 po BID for migraines TOPIRAMATE 50 MG ORAL TABLET 486814 TOPIRAMATE Inactive TEMAZEPAM 15 MG ORAL CAPSULE 1 TAB PO Q HS TEMAZEPAM 15 MG ORAL CAPSULE 485843 TEMAZEPAM Inactive IMDUR 60 MG ORAL TABLET EXTENDED RELEASE 24 HOUR take 1 tab po qday for blood pressure IMDUR 60 MG ORAL TABLET EXTENDED RELEASE 24 HOUR ISOSORBIDE MONONITRATE Inactive [id number] 0.3 MG/24HR TRANSDERMAL PATCH WEEKLY apply 2 patches q week for HTN [id number] 0.3 MG/24HR TRANSDERMAL PATCH WEEKLY 966063 CLONIDINE HCL Inactive ZITHROMAX 250 MG ORAL TABLET 2 po today, then 1 po q days 2-5 ZITHROMAX 250 MG ORAL TABLET 699739 AZITHROMYCIN Inactive TERBINAFINE HCL 250 MG ORAL TABLET 1 tab po qday for foot infection TERBINAFINE HCL 250 MG ORAL TABLET 330193 TERBINAFINE HCL Inactive KEFLEX 500 MG ORAL CAPSULE 1 po TID x 10 days KEFLEX 500 MG ORAL CAPSULE 120690 CEPHALEXIN Inactive BACTRIM DS 800-160 MG ORAL TABLET 1 tab by mouth twice daily 2015 BACTRIM DS 800-160 MG ORAL TABLET 387047 TRIMETHOPRIM- SULFAMETHOXAZOLE Inactive PREDNISONE 20 MG ORAL TABLET take 3 tabs daily for 3 days, 2 tabs daily for 3 days, 1 tab daily for 3 days, 1/2 tab daily for 4 days PREDNISONE 20 MG ORAL TABLET 071204 PREDNISONE Inactive AZITHROMYCIN 250 MG ORAL TABLET 2 po qd x 1 day, then 1 po qd x 4 days 09/20 AZITHROMYCIN 250 MG ORAL TABLET 114069 AZITHROMYCIN Inactive SINGULAIR 10 MG ORAL TABLET 1 po qday for allergies. SINGULAIR 10 MG ORAL TABLET 949609 MONTELUKAST SODIUM Inactive Advance Directives Directive Description [...] AUTO - Chemistry sodium, serum 142 mmol/L 413-707 3222/07/17 carbon dioxide, venous blood 28.2 mmol/L 21.0-32.0 [...] % 11.0-15.0 platelet count 185 THOUSAND/UL 10*3/mm3 573-114 4476/04/14 mean platelet volume 10.9 fL 7.5-12.5 Lab Report: Comp. Metabolic Panel - Chemistry sodium, serum 141 mmol/L 630-658 7350/02/13 carbon dioxide, venous blood 23.9 mmol/L 21.0-32.0 [...] 6.9 % 4.3-6.0 sodium, serum 139 mmol/L 648-787 1528/01/04 potassium, serum 3.9 mmol/L 3.5-5.2 chloride, serum 103 mmol/L 98-107 carbon dioxide, venous blood 26.9 mmol/L 21.0-32.0 blood glucose 106 mg/dL 65-110 calcium, serum 9.0 mg/dL 8.5-10.1 urea nitrogen, blood 20 mg/dL 7-18 creatinine, serum 1.46 mg/dL 0.60-1.30 Lab Report: LIPID PANEL, TSH/899, T4, FREE/866 - Chemistry cholesterol, serum 220 mg/dL 571-554 7865/04/14 HDL cholesterol, serum 30 mg/dL > OR=40 [...] 1.80 ng/mL 0.00-4.00 Lab Report: VITAMIN D, 25-HYDROXY/92581 - Chemistry vitamin D 25-hydroxy, serum 25 ng/mL 30-100 Office Visit: Confusion, dizziness after fall - Basic LDL target level 130 mg/dL Office Visit: Confusion, dizziness after fall - Chemistry HDL cholesterol, serum, target level 40 mg/dL triglyceride, target level 150 mg/dL cholesterol, target level 200 mg/dL Encounters Code Encounter Date Provider Facility CPT-23838 Level 4 Est. Patient 09:50:01 HEALTH OUTREACH WORKER Robbie Busby MD [facility] CPT-62460 Level 4 Est. Patient 09:42:08 HEALTH OUTREACH WORKER Robbie Busby MD [facility] CPT-32680 Level 4 Est. Patient 13:07:39 HEALTH OUTREACH WORKER Robbie Busby MD [facility] CPT-27805 Level 4 Est. Patient 15:23:44 HEALTH OUTREACH WORKER Desmond Diaz DO [facility] CPT-36131 Level 3 Est. Patient 15:40:49 CDT Robbie Busby MD [facility] CPT-11379 Level 4 Est. Patient 15:18:19 CDT Robbie Busby MD [facility] CPT-47504 Level 3 Est. Patient 09:00:37 CDT Rober Rodríguez [facility] CPT-63728 Level 3 Est. Patient 16:07:10 CDT Robbie Busby MD [facility] CPT-99984 Level 4 Est. Patient 11:56:16 CDT Erin Mai [facility] CPT-39306 Level 3 Est. Patient 17:48:02 CDT Robbie Busby MD [facility] CPT-46326 Level 4 Est. Patient 12:00:49 HEALTH OUTREACH WORKER Rober Rodríguez [facility] CPT-26606 Level 3 Est. Patient 09:16:37 CDT Robbie Busby MD [facility]-43642 Level 3 Est. Patient 19:38:43 CDT Robbie Busby MD [facility] CPT-47580 Level 3 Est. Patient 11:53:38 CDT Robbie Busby MD [facility] CPT-96088 Level 4 Est. Patient 12:52:22 CDT Rober Rodríguez [facility]-26627 Level 4 Est. Patient 22:55:17 CDT Robbie Busby MD [facility]-39549 Level 3 Est. Patient 12:38:24 CDT Desmond Diaz DO [facility] CPT-65838 Level 4 Est. Patient 11:25:03 HEALTH OUTREACH WORKER Robbie Busby MD [facility] CPT-39861 Level 4 Est. Patient 14:50:10 CDT Robbie Busby MD [facility] CPT-75196 Level 4 Est. Patient 23:30:43 CDT Robbie Busby MD [facility] CPT-44640 Level 4 Est. Patient 10:30:43 CDT Robbie Busby MD [facility] CPT-91157 Level 3 Est. Patient 17:08:12 CDT Alex ALVAREZ [facility] CPT-04989 Level 4 Est. Patient 17:51:38 CDT Robbie Busby MD [facility]-81379 Level 4 Est. Patient 14:00:21 CDT Robbie Busby MD [facility] CPT-05350 Level 4 Est. Patient 12:46:48 CDT Robbie Busby MD [facility] CPT-10159 Level 4 Est. Patient 13:34:33 CDT Robbie Busby MD [facility] CPT-92634 Level 4 Est. Patient 16:58:28 CDT Robbie Busby MD [facility] CPT-34237 Level 3 Est. Patient 19:36:53 CDT Alex ALVAREZ [facility] CPT-60232 Level 3 Est. Patient 12:58:15 CDT Robbie Busby MD [facility] Procedures Code Procedure Name Date Entry Date Standard Description CPT-J1071 Depo Testosterone 200mg 16:10:29 [facility] CPT-29155 Abx/Therapy Injection 16:10:29 [facility] CPT-J1071 Depo Testosterone 200mg 16:13:47 [facility] CPT-13592 Abx/Therapy Injection 16:13:46 [facility] CPT-J1071 Depo Testosterone 200mg 15:33:58 [facility] CPT-62326 Abx/Therapy Injection 15:33:58 [facility] CPT-J1071 Depo Testosterone 200mg 09:38:36 [facility] CPT-09963 Abx/Therapy Injection 09:38:36 [facility] CPT-J1071 Depo Testosterone 200mg 10:22:56 HEALTH OUTREACH WORKER CPT-46594 Abx/Therapy Injection 10:22:56 HEALTH OUTREACH WORKER CPT-J1071 Depo Testosterone 200mg 15:40:23 CDT CPT-14898 Abx/Therapy Injection 15:40:23 CDT CPT-J1071 Depo Testosterone 200mg 14:20:43 CDT CPT-27891 Abx/Therapy Injection 14:20:43 CDT CPT-J1071 Depo Testosterone 200mg 14:17:22 CDT CPT-52357 Abx/Therapy Injection 14:17:22 CDT CPT-J1071 Depo Testosterone 200mg 09:03:53 CDT CPT-72294 Abx/Therapy Injection 09:03:53 CDT CPT-G0439 [facility] Annual Wellness Exam 16:47:44 CDT CPT-J1071 Depo Testosterone 200mg 09:06:28 CDT CPT-79889 Abx/Therapy Injection 09:06:28 CDT CPT-J1071 Depo Testosterone 200mg 08:30:01 CDT CPT-62223 Abx/Therapy Injection 08:30:01 CDT CPT-J1071 Depo Testosterone 200mg 08:24:00 CDT CPT-62080 Abx/Therapy Injection 08:24:00 CDT CPT-86772 Venipuncture Draw Fee 14:39:06 CDT CPT-97986 Ribs unilateral 2V - XRAY USE ONLY 12:10:11 CDT CPT-10783 First Vx - Ix admin for Medicare patients 16:32:53 CDT CPT-57047 Boostrix Intramuscular Suspension 5-2.5-18.5 16:32:53 CDT CPT-76588 TB Skin Test 11:42:28 CDT CPT-40930 Tdap 7yrs or > 11:42:28 CDT CPT-J0696 Rocephin 1000 mg (Ceftriaxone) 17:43:43 HEALTH OUTREACH WORKER CPT-J1040 Depo Medrol 80 mg (Methyl Prednisolone Acetate) 17:43: 43 HEALTH OUTREACH WORKER CPT-J1100 Decadron 8mg (Dexamethasone) 17:43:42 HEALTH OUTREACH WORKER CPT-22731 Abx/Therapy Injection 17:43:42 HEALTH OUTREACH WORKER CPT-37051 Abx/Therapy Injection 17:43:42 HEALTH OUTREACH WORKER CPT-J1040 Depo Medrol 80 mg (Methyl Prednisolone Acetate) 09:43: 34 HEALTH OUTREACH WORKER CPT-J1100 Decadron 8mg (Dexamethasone) 09:43:34 HEALTH OUTREACH WORKER CPT-J0696 Rocephin 1gm Inj Solr 09:43:34 HEALTH OUTREACH WORKER CPT-36575 Wound Culture - LAB USE ONLY 14:00:21 CDT CPT-I/D I/D Abscess 09:16:37 CDT CPT-42176 Venipuncture Draw Fee 15:20:23 CDT CPT-91369 Microalbumin - LAB USE ONLY 16:02:19 CDT CPT-57350 CBC - LAB USE ONLY 16:02:19 CDT CPT-69042 Venipuncture Draw Fee 16:02:19 CDT CPT-G0438 Initial Annual Wellness Exam 08:10:28 CDT CPT-94058 Venipuncture Draw Fee 13:07:17 CDT CPT-G0008 Administration of Influenza Virus Vaccine 16:09:59 CDT CPT-24697 Fluzone Quadrivalent Intramuscular Suspension 0.5 ML 16: 09:59 CDT CPT-72753 Spec Collection and Handling Fee 15:05:50 CDT
--- OUTSIDE RECORDS SUMMARY | 2018-04-18 15:07 | XMS REPORT | Clinical Summary ---
Author Author Admin, AKUA Organization [employer] Address Unknown Phone Unavailable Allergies, Adverse [...] 2 weeks for low testosterone TESTOSTERONE CYPIONATE 67268879516 Active Zulema Blank LPN Active CYCLOBENZAPRINE HCL 10 MG ORAL TABS 1 po TID PRN muscle spasm/pain for 10 days CYCLOBENZAPRINE HCL 78418445227 Active JONATHAN Moncada Active GUAIFENESIN 600 MG [id number] 1 tab po q am GUAIFENESIN 91822107875 Active Rober Rodríguez WET END SUPERVISOR Active FLUTICASONE PROPIONATE 50 MCG/ACT SUSP 2 sprays per nostril bid for 1 week, then 1 spray bid FLUTICASONE PROPIONATE 48462684986 Active Jillina Frazelariana GONZALEZN Active HYDRALAZINE HCL 25 MG ORAL TABS Take 1 tab BID. HYDRALAZINE HCL 00989193984 Active Jillina Anne GONZALEZN Active VITAMIN D3 77677 UNIT ORAL TABS 2 po weekly CHOLECALCIFEROL 25896281163 Active Robbie Busby MD Active OXYCODONE HCL ER 10 MG ORAL T12A 1 tab po 3 times qd. OXYCODONE HCL 43263340017 Active Robbie Busby MD Active NITROSTAT 0.4 MG SUBL PRN NITROGLYCERIN 00575507465 No Longer Active Robbie Busby MD Active LORATADINE 10 MG TABS 1 tablet by mouth daily for congestion and allergies. LORATADINE 42716912757 No Longer Active Robbie Busby MD Active FLONASE 50 MCG/ACT SUSP 1 spray each nostril twice daily for allergies and runny nose FLUTICASONE PROPIONATE 34459457012 No Longer Active Robbie Busby MD Active FIORICET 50-300-40 MG ORAL CAPS take 1 tab po qday prn migraines. [id number] 87711735910 No Longer Active Robbie Busby MD Active VITAMIN D3 97144 UNIT CAPS 2 CAPS PO WEEKLY CHOLECALCIFEROL 43695472475 No Longer Active Robbie Busby MD Active CYCLOBENZAPRINE HCL 10 MG TABS 1 tablet by mouth three times daily as needed for muscle spasm/pain for 10 days CYCLOBENZAPRINE HCL 85483085840 No Longer Active Robbie Busby MD Active PREDNISONE 20 MG TAB take 3 tabs daily for 3 days, 2 tabs daily for 3 days, 1 tab daily for 3 days, 1/2 tab daily for 4 days PREDNISONE 59538215855 No Longer Active Erin Gasria APRN Active CLONIDINE HCL 0.2 MG ORAL TABS 1 TAB BY MOUTH EVERY 8 HOURS 12/29 CLONIDINE HCL 81180298428 No Longer Active Erin Garsia APRN Active MECLIZINE HCL 25 MG TAB one 4 times a day as needed for dizziness MECLIZINE HCL 94797966605 No Longer Active Erin Garsia APRN Active SPIRONOLACTONE 25 MG TAB 4 tablets by mouth daily SPIRONOLACTONE 81431045556 No Longer Active Erin Garsia APRN Active LEVAQUIN 500 MG TAB 1 tablet by mouth daily for 7 days LEVOFLOXACIN 46748820807 No Longer Active Erin Garsia APRN Active BACTRIM DS 800-160 MG TAB 1 tab by mouth twice daily TRIMETHOPRIM-SULFAMETHOXAZOLE 43461946403 No Longer Active Robbie Busby MD Active HYDRALAZINE HCL 50 MG ORAL TABS TWO BY MOUTH THREE TIMES DAILY HYDRALAZINE HCL 18198956804 No Longer Active Jillina Frazell WET END SUPERVISOR Active HYDROCODONE-ACETAMINOPHEN 5-325 MG TABS 1 tab by mouth BID prn back pain 2013 HYDROCODONE-ACETAMINOPHEN 73716029452 No Longer Active Jillina Frazell WET END SUPERVISOR Active HYDROCHLOROTHIAZIDE TABS Take one by mouth daily HYDROCHLOROTHIAZIDE TABS 25510477729 No Longer Active Jillina Frazell WET END SUPERVISOR Active LAMISIL 125 MG ORAL PACK 1 TAB PO DAILY TERBINAFINE HCL 36775657008 No Longer Active Jillina Frazell WET END SUPERVISOR Active TRILEPTAL 150 MG ORAL TABS 1 TAB PO Q HS OXCARBAZEPINE 22094064511 No Longer Active Jillina Frazell WET END SUPERVISOR Active BETADINE 10 % EXT SOLN wash with solution to treat follicultis POVIDONE-IODINE 65248140170 No Longer Active Jillina Frazell WET END SUPERVISOR Active NYSTATIN 233758 UNIT/ML M/T SUSP 5mL po QID x 10 days NYSTATIN 72092482627 No Longer Active Erin Ady WET END SUPERVISOR Active PREDNISONE 20 MG TAB 1 tablet twice daily for 2 days, then 1 tablet once daily for 2 days PREDNISONE 82276483640 No Longer Active Robbie Busby MD Active CEFDINIR 300 MG ORAL CAPS Take 1 cap po bid x 10 days CEFDINIR 54572379480 No Longer Active Robbie Busby MD Active AMLODIPINE BESYLATE 10 MG TABS 1 tablet by mouth daily AMLODIPINE BESYLATE 40380933337 Active Robbie Busby MD Active CARVEDILOL 25 MG TABS 1 & 1/2 TAB po BID CARVEDILOL 50734379570 Active Robbie Busby MD Active NEXIUM 40 MG CPDR 1 cap by mouth daily ESOMEPRAZOLE MAGNESIUM 67968450122 Active Robbie Busby MD Active PROTONIX 40 MG SOLR 1 po qday for acid reflux PANTOPRAZOLE SODIUM 24904136261 No Longer Active Gali Raida Active KEFLEX 500 MG CAP 1 po TID x 10 days CEPHALEXIN 07741852473 No Longer Active Robbie Busby MD Active TOPIRAMATE 50 MG ORAL TABS take 1 tab po BID for migraines. TOPIRAMATE 71363542381 Active Robbie Busby MD Active TEMAZEPAM 15 MG ORAL CAPS 1 TAB PO Q HS TEMAZEPAM 21278607074 Active Robbie Busby MD Active ALPRAZOLAM 2 MG ORAL TABS 1 TAB PO BID ALPRAZOLAM 80322002024 Active Robbie Busby MD Active FENOFIBRATE 145 MG TABS Take one by mouth daily FENOFIBRATE 33467992880 No Longer Active Robbie Busby MD Active SPIRONOLACTONE 50 MG TABS 1 tablet by mouth twice a day SPIRONOLACTONE 44779806113 No Longer Active Robbie Busby MD Active HYDRALAZINE HCL 25 MG TABS 1 tablet by mouth tid for hypertension HYDRALAZINE HCL 16896826073 No Longer Active Robbie Busby MD Active VIIBRYD 40 MG TABS take 1 tab po qday for depression. VILAZODONE HCL 46250792278 No Longer Active Robbie Busby MD Active TERBINAFINE HCL 250 MG TABS 1 tab po qday for foot infection 2014 TERBINAFINE HCL 10290581016 No Longer Active Robbie Busby MD Active GABAPENTIN 300 MG CAPS 1 po q hs for nerve pain GABAPENTIN 75866621160 Active Robbie Busby MD Active CHERATUSSIN AC 100-10 MG/5ML ORAL SOLN 7.5 mL PO q 4-6 hrs PRN cough GUAIFENESIN-CODEINE 79601017871 No Longer Active Robbie Busby MD Active AZITHROMYCIN 250 MG ORAL TABS 2 tablets PO today---then, 1 tablet PO daily x 4 more days (and 1 optional refill) AZITHROMYCIN 42301813580 No Longer Active Robbie Busby MD Active NORVASC 10 MG TAB 1 tablet by mouth daily AMLODIPINE BESYLATE 92984637665 No Longer Active Alex ALVAREZ Active IMDUR 60 MG TAB CR take 1 tab po qday for blood pressure ISOSORBIDE MONONITRATE Active Robbie Busby MD Active ISOSORBIDE DINITRATE 30 MG TABS Take one by mouth daily ISOSORBIDE DINITRATE 21454502864 No Longer Active Robbie Busby MD Active VIIBRYD 40 MG TABS 1 TA B PO DAILY VILAZODONE HCL 71440055872 Active Robbie Busby MD Active ZITHROMAX 250 MG TAB 2 po today, then 1 po q days 2-5 AZITHROMYCIN 97250626562 No Longer Active Robbie Busby MD Active [id number] 0.3 MG/24HR PTWK apply 2 patches q week for HTN CLONIDINE HCL 27447509157 Active Robbie Busby MD Active DOXAZOSIN MESYLATE 4 MG TABS Take one by mouth daily DOXAZOSIN MESYLATE 74419644343 Active Robbie Busby MD Active TOPROL XL 200 MG [id number] Take one by mouth daily METOPROLOL SUCCINATE 10312312967 Active Robbie Busby MD Active VENLAFAXINE HCL ER 150 MG [id number] Take one by mouth daily VENLAFAXINE HCL 84085369363 Active Robbie Busby MD Active LIPITOR 40 MG TABS Take one by mouth daily ATORVASTATIN CALCIUM 48866564322 Active Robbie Busby MD Active ISOSORBIDE DINITRATE 30 MG TABS Take one by mouth daily ISOSORBIDE DINITRATE 30 MG TABS 202055 ISOSORBIDE DINITRATE Inactive NORVASC 10 MG TAB 1 tablet by mouth daily NORVASC 10 MG TAB 830662 AMLODIPINE BESYLATE Inactive AZITHROMYCIN 250 MG ORAL TABS 2 tablets PO today---then, 1 tablet PO daily x 4 more days (and 1 optional refill) AZITHROMYCIN 250 MG ORAL TABS 5127489 AZITHROMYCIN Inactive CHERATUSSIN AC 100-10 MG/5ML ORAL SOLN 7.5 mL PO q 4-6 hrs PRN cough CHERATUSSIN AC 100-10 MG/5ML ORAL SOLN 752373 GUAIFENESIN- CODEINE Inactive VIIBRYD 40 MG TABS take 1 tab po qday for depression. VIIBRYD 40 MG TABS VILAZODONE HCL Inactive HYDRALAZINE HCL 25 MG TABS 1 tablet by mouth tid for hypertension HYDRALAZINE HCL 25 MG TABS 748865 HYDRALAZINE HCL Inactive SPIRONOLACTONE 50 MG TABS 1 tablet by mouth twice a day SPIRONOLACTONE 50 MG TABS 253986 SPIRONOLACTONE Inactive FENOFIBRATE 145 MG TABS Take one by mouth daily FENOFIBRATE 145 MG TABS 939207 FENOFIBRATE Inactive PROTONIX 40 MG SOLR 1 po qday for acid reflux PROTONIX 40 MG SOLR 241406 PANTOPRAZOLE SODIUM Inactive CEFDINIR 300 MG ORAL CAPS Take 1 cap po bid x 10 days CEFDINIR 300 MG ORAL CAPS 635538 CEFDINIR Inactive PREDNISONE 20 MG TAB 1 tablet twice daily for 2 days, then 1 tablet once daily for 2 days PREDNISONE 20 MG TAB 422095 PREDNISONE Inactive NYSTATIN 648365 UNIT/ML M/T SUSP 5mL po QID x 10 days NYSTATIN 514319 UNIT/ML M/T SUSP 003651 NYSTATIN Inactive BETADINE 10 % EXT SOLN wash with solution to treat follicultis BETADINE 10 % EXT SOLN 2925128 POVIDONE-IODINE Inactive TRILEPTAL 150 MG ORAL TABS 1 TAB PO Q HS TRILEPTAL 150 MG ORAL TABS 228160 OXCARBAZEPINE Inactive LAMISIL 125 MG ORAL PACK 1 TAB PO DAILY LAMISIL 125 MG ORAL PACK TERBINAFINE HCL Inactive HYDROCHLOROTHIAZIDE TABS Take one by mouth daily HYDROCHLOROTHIAZIDE TABS HYDROCHLOROTHIAZIDE TABS Inactive HYDROCODONE-ACETAMINOPHEN 5-325 MG TABS 1 tab by mouth BID prn back pain 2013 HYDROCODONE-ACETAMINOPHEN 5-325 MG TABS 566997 HYDROCODONE -ACETAMINOPHEN Inactive HYDRALAZINE HCL 50 MG ORAL TABS TWO BY MOUTH THREE TIMES DAILY HYDRALAZINE HCL 50 MG ORAL TABS 347013 HYDRALAZINE HCL Inactive LEVAQUIN 500 MG TAB 1 tablet by mouth daily for 7 days LEVAQUIN 500 MG TAB 626741 LEVOFLOXACIN Inactive SPIRONOLACTONE 25 MG TAB 4 tablets by mouth daily SPIRONOLACTONE 25 MG TAB 593116 SPIRONOLACTONE Inactive MECLIZINE HCL 25 MG TAB one 4 times a day as needed for dizziness MECLIZINE HCL 25 MG TAB 269869 MECLIZINE HCL Inactive CLONIDINE HCL 0.2 MG ORAL TABS 1 TAB BY MOUTH EVERY 8 HOURS 12/29 CLONIDINE HCL 0.2 MG ORAL TABS 146787 CLONIDINE HCL Inactive CYCLOBENZAPRINE HCL 10 MG TABS 1 tablet by mouth three times daily as needed for muscle spasm/pain for 10 days CYCLOBENZAPRINE HCL 10 MG TABS 841816 CYCLOBENZAPRINE HCL Inactive VITAMIN D3 53305 UNIT CAPS 2 CAPS PO WEEKLY VITAMIN D3 16734 UNIT CAPS CHOLECALCIFEROL Inactive FIORICET 50-300-40 MG ORAL CAPS take 1 tab po qday prn migraines. FIORICET 50-300-40 MG ORAL CAPS 588380 [id number] Inactive FLONASE 50 MCG/ACT SUSP 1 spray each nostril twice daily for allergies and runny nose FLONASE 50 MCG/ACT SUSP 9614005 FLUTICASONE PROPIONATE Inactive LORATADINE 10 MG TABS 1 tablet by mouth daily for congestion and allergies. LORATADINE 10 MG TABS 773847 LORATADINE Inactive NITROSTAT 0.4 MG SUBL PRN NITROSTAT 0.4 MG SUBL 142233 NITROGLYCERIN Inactive ZITHROMAX 250 MG TAB 2 po today, then 1 po q days 2-5 ZITHROMAX 250 MG TAB 6226349 AZITHROMYCIN Inactive TERBINAFINE HCL 250 MG TABS 1 tab po qday for foot infection 2014 TERBINAFINE HCL 250 MG TABS 516080 TERBINAFINE HCL Inactive KEFLEX 500 MG CAP 1 po TID x 10 days KEFLEX 500 MG CAP 406935 CEPHALEXIN Inactive BACTRIM DS 800-160 MG TAB 1 tab by mouth twice daily BACTRIM DS 800-160 MG TAB 090370 TRIMETHOPRIM-SULFAMETHOXAZOLE Inactive PREDNISONE 20 MG TAB take 3 tabs daily for 3 days, 2 tabs daily for 3 days, 1 tab daily for 3 days, 1/2 tab daily for 4 days PREDNISONE 20 MG TAB 267029 PREDNISONE Inactive Advance Directives Directive Description Start [...] % 11.6-14.8 platelet count 229 10^3/MM^3 10*3/mm3 708-380 8517/09/06 mean corpuscular volume, RBC 90 fL 80-97 hematocrit, blood 42.4 % 41.0-53.0 hemoglobin, blood 14.4 g/dL 13.5-17.5 erythrocyte (RBC) count 4.72 10^6/MM^3 10*6/mm3 4.69-6.13 leukocyte count, blood 9.7 10^3/MM^3 10*3/mm3 4.6-10.2 Lab Report: CBC W/DIFF, Comp. Metabolic Panel, CKI, UADIP W/MICRO, AUTO - Chemistry sodium, serum 142 mmol/L 405-961 0818/07/17 carbon dioxide, venous blood 28.2 mmol/L 21.0-32.0 [...] % 11.0-15.0 platelet count 185 THOUSAND/UL 10*3/mm3 326-013 6496/04/14 mean platelet volume 10.9 fL 7.5-12.5 erythrocyte (RBC) count 4.64 MILLION/UL 10*6/mm3 4.20-5.80 hemoglobin, blood 13.9 g/dL 13.2-17.1 hematocrit, blood 42.0 % 38.5-50.0 mean corpuscular volume, RBC 90.5 fL 80.0-100.0 mean corpuscular hemoglobin, RBC 29.9 pg 27.0-33.0 Lab Report: LIPID PANEL, TSH/899, T4, FREE/866 - Chemistry cholesterol, serum 220 mg/dL 042-434 2163/04/14 HDL cholesterol, serum 30 mg/dL > OR=40 triglyceride, serum, fasting 466 mg/dL <150 LDL cholesterol, serum SEE NOTE mg/dL (calc) mg/dL <130 cholesterol/HDL ratio, serum 7.3 (calc) < OR=5.0 Lab Report: MICROALB/CREAT W/RATIO - Chemistry albumin/creatinine ratio, urine < 30 mg/g mg/g{creat} 0-29 Lab Report: MICROALB/CREAT W/RATIO - Lab microalbumin, urine 80 0-19 Lab Report: VITAMIN D, 25-HYDROXY/68364 - Chemistry vitamin D 25-hydroxy, serum 25 ng/mL 30-100 Office Visit: Confusion, dizziness after fall - Basic LDL target level 130 mg/dL Office Visit: Confusion, dizziness after fall - Chemistry HDL cholesterol, serum, target level 40 mg/dL triglyceride, target level 150 mg/dL cholesterol, target level 200 mg/dL Encounters Code Encounter Date Provider Facility CPT-11987 Level 4 Est. Patient 15:18:19 CDT Robbie Busby MD [facility] [place] CPT-08025 Level 3 Est. Patient 09:00:37 CDT Rober Rodríguez [facility] [place] CPT-62544 Level 3 Est. Patient 16:07:10 CDT Robbie Busby MD [facility] [place] CPT-78935 Level 4 Est. Patient 11:56:16 CDT Erin Garsia [facility] [place] CPT-46690 Level 3 Est. Patient 17:48:02 CDT Robbie Busby MD [facility] [place] CPT-73344 Level 4 Est. Patient 12:00:49 WASHER ENGINEER Rober Rodríguez [facility] [place] CPT-23360 Level 3 Est. Patient 09:16:37 CDT Robbie Busby MD [facility] [place] CPT-75515 Level 3 Est. Patient 19:38:43 CDT Robbie Busby MD [facility] [place] CPT-40775 Level 3 Est. Patient 11:53:38 CDT Robbie Busby MD [facility] [place] CPT-20933 Level 4 Est. Patient 12:52:22 CDT Rober Rodríguez [facility] [place] CPT-83900 Level 4 Est. Patient 22:55:17 CDT Robbie Busby MD [facility] [place] CPT-23644 Level 3 Est. Patient 12:38:24 CDT Desmond Diaz DO [facility] [place] CPT-46444 Level 4 Est. Patient 11:25:03 WASHER ENGINEER Robbie Busby MD [facility] [place] [facility] CPT-58081 Level 4 Est. Patient 14:50:10 CDT Robbie Busby MD [facility] [place] CPT-77019 Level 4 Est. Patient 23:30:43 CDT Robbie Busby MD [facility] CPT-09902 Level 4 Est. Patient 10:30:43 CDT Robbie Busby MD [facility] CPT-46698 Level 3 Est. Patient 17:08:12 CDT Alex Shaw [facility] CPT-71701 Level 4 Est. Patient 17:51:38 CDT Robbie Busby MD [facility] CPT-66535 Level 4 Est. Patient 14:00:21 CDT Robbie Busby MD [facility] CPT-52858 Level 4 Est. Patient 12:46:48 CDT Robbie Busby MD [facility] CPT-26479 Level 4 Est. Patient 13:34:33 CDT Robbie Busby MD [facility] CPT-36216 Level 4 Est. Patient 16:58:28 CDT Robbie Busby MD [facility] CPT-37491 Level 3 Est. Patient 19:36:53 CDT Alex Shaw [facility] CPT-30745 Level 3 Est. Patient 12:58:15 CDT Robbie Busby MD [facility] Procedures Code Procedure Name Date Entry Date Standard Description CPT-J1071 Depo Testosterone 200mg 08:30:01 CDT CPT-01581 Abx/Therapy Injection 08:30:01 CDT CPT-J1071 Depo Testosterone 200mg 08:24:00 CDT CPT-57025 Abx/Therapy Injection 08:24:00 CDT CPT-28370 Venipuncture Draw Fee 14:39:06 CDT CPT-17445 Ribs unilateral 2V - XRAY USE ONLY 12:10:11 CDT CPT-46919 First Vx - Ix admin for Medicare patients 16:32:53 CDT CPT-50158 Boostrix Intramuscular Suspension 5-2.5-18.5 16:32:53 CDT CPT-74503 TB Skin Test 11:42:28 CDT CPT-81798 Tdap 7yrs or > 11:42:28 CDT CPT-J0696 Rocephin 1000 mg (Ceftriaxone) 17:43:43 WASHER ENGINEER CPT-J1040 Depo Medrol 80 mg (Methyl Prednisolone Acetate) 17:43: 43 WASHER ENGINEER CPT-J1100 Decadron 8mg (Dexamethasone) 17:43:42 WASHER ENGINEER CPT-99208 Abx/Therapy Injection 17:43:42 WASHER ENGINEER CPT-66899 Abx/Therapy Injection 17:43:42 WASHER ENGINEER CPT-J1040 Depo Medrol 80 mg (Methyl Prednisolone Acetate) 09:43: 34 WASHER ENGINEER CPT-J1100 Decadron 8mg (Dexamethasone) 09:43:34 WASHER ENGINEER CPT-J0696 Rocephin 1gm Inj Solr 09:43:34 WASHER ENGINEER CPT-10267 Wound Culture - LAB USE ONLY 14:00:21 CDT CPT-I/D I/D Abscess 09:16:37 CDT CPT-66411 Venipuncture Draw Fee 15:20:23 CDT CPT-26943 Microalbumin - LAB USE ONLY 16:02:19 CDT CPT-58916 CBC - LAB USE ONLY 16:02:19 CDT CPT-43430 Venipuncture Draw Fee 16:02:19 CDT CPT-G0438 Initial Annual Wellness Exam 08:10:28 CDT CPT-37515 Venipuncture Draw Fee 13:07:17 CDT CPT-G0008 Administration of Influenza Virus Vaccine 16:09:59 CDT CPT-36120 Fluzone Quadrivalent Intramuscular Suspension 0.5 ML 16: 09:59 CDT CPT-95547 Spec Collection and Handling Fee 15:05:50 CDT
--- OUTSIDE RECORDS SUMMARY | 2018-04-18 15:08 | XMS REPORT | Clinical Summary ---
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 OXYCODONE HCL 33514418714 Active Robbie Busby MD Active NITROSTAT 0.4 MG SUBL PRN NITROGLYCERIN 84575663084 No Longer Active Robbie Busby MD Active LORATADINE 10 MG TABS 1 tablet by mouth daily for congestion and allergies. LORATADINE 75553478331 No Longer Active Robbie Busby MD Active FLONASE 50 MCG/ACT SUSP 1 spray each nostril twice daily for allergies and runny nose FLUTICASONE PROPIONATE 08649743893 No Longer Active Robbie Busby MD Active FIORICET 50-300-40 MG ORAL CAPS take 1 tab po qday prn migraines. [id number] 10035824834 No Longer Active Robbie Busby MD Active VITAMIN D3 68951 UNIT CAPS 2 CAPS PO WEEKLY CHOLECALCIFEROL 37744027618 No Longer Active Robbie Busby MD Active CYCLOBENZAPRINE HCL 10 MG TABS 1 tablet by mouth three times daily as needed for muscle spasm/pain for 10 days CYCLOBENZAPRINE HCL 70373711213 No Longer Active Robbie Busby MD Active PREDNISONE 20 MG TAB take 3 tabs daily for 3 days, 2 tabs daily for 3 days, 1 tab daily for 3 days, 1/2 tab daily for 4 days PREDNISONE 34341711019 No Longer Active Erin Garsia APRN Active CLONIDINE HCL 0.2 MG ORAL TABS 1 TAB BY MOUTH EVERY 8 HOURS 12/29 CLONIDINE HCL 61378504123 No Longer Active Erin Garsia APRN Active MECLIZINE HCL 25 MG TAB one 4 times a day as needed for dizziness MECLIZINE HCL 80479426197 No Longer Active Erin Garsia APRN Active SPIRONOLACTONE 25 MG TAB 4 tablets by mouth daily SPIRONOLACTONE 48147850395 No Longer Active Erin Garsia APRN Active LEVAQUIN 500 MG TAB 1 tablet by mouth daily for 7 days LEVOFLOXACIN 44618352228 No Longer Active Erin Garsia APRN Active BACTRIM DS 800-160 MG TAB 1 tab by mouth twice daily TRIMETHOPRIM-SULFAMETHOXAZOLE 67867060743 No Longer Active Robbie Busby MD Active HYDRALAZINE HCL 50 MG ORAL TABS TWO BY MOUTH THREE TIMES DAILY HYDRALAZINE HCL 46542659056 No Longer Active Rober Rodríguez APRN Active HYDROCODONE-ACETAMINOPHEN 5-325 MG TABS 1 tab by mouth BID prn back pain 2013 HYDROCODONE-ACETAMINOPHEN 42555526519 No Longer Active Andrellld Rodríguez APRN Active HYDROCHLOROTHIAZIDE TABS Take one by mouth daily HYDROCHLOROTHIAZIDE TABS 00265253422 No Longer Active Rober Rodríguez APRN Active LAMISIL 125 MG ORAL PACK 1 TAB PO DAILY TERBINAFINE HCL 60360620907 No Longer Active Jillina Franeha PATIENT RESOURCE SPECIALIST Active TRILEPTAL 150 MG ORAL TABS 1 TAB PO Q HS OXCARBAZEPINE 86486835620 No Longer Active Jillina Frazell PATIENT RESOURCE SPECIALIST Active BETADINE 10 % EXT SOLN wash with solution to treat follicultis POVIDONE-IODINE 46249965502 No Longer Active Jillina Rodolfozell PATIENT RESOURCE SPECIALIST Active NYSTATIN 644766 UNIT/ML M/T SUSP 5mL po QID x 10 days NYSTATIN 83509344768 No Longer Active Erin Garsia APRN Active PREDNISONE 20 MG TAB 1 tablet twice daily for 2 days, then 1 tablet once daily for 2 days PREDNISONE 93914168155 No Longer Active Robbie Busby MD Active CEFDINIR 300 MG ORAL CAPS Take 1 cap po bid x 10 days CEFDINIR 82172993344 No Longer Active Robbie Busby MD Active AMLODIPINE BESYLATE 10 MG TABS 1 tablet by mouth daily AMLODIPINE BESYLATE 82604556750 Active Robbie Busby MD Active CARVEDILOL 25 MG TABS 1 & 1/2 TAB po BID CARVEDILOL 12647476096 Active Rbobie Busby MD Active NEXIUM 40 MG CPDR 1 cap by mouth daily ESOMEPRAZOLE MAGNESIUM 65395052558 Active Robbie Busby MD Active PROTONIX 40 MG SOLR 1 po qday for acid reflux PANTOPRAZOLE SODIUM 55299304308 No Longer Active Gali Raida Active KEFLEX 500 MG CAP 1 po TID x 10 days CEPHALEXIN 18308378208 No Longer Active Robbie Busby MD Active TOPIRAMATE 50 MG ORAL TABS take 1 tab po BID for migraines. TOPIRAMATE 46953841030 Active Robbie Busby MD Active TEMAZEPAM 15 MG ORAL CAPS 1 TAB PO Q HS TEMAZEPAM 66092999378 Active Robbie Busby MD Active ALPRAZOLAM 2 MG ORAL TABS 1 TAB PO BID ALPRAZOLAM 72811667246 Active Robbie Busby MD Active FENOFIBRATE 145 MG TABS Take one by mouth daily FENOFIBRATE 33760016729 No Longer Active Robbie Busby MD Active SPIRONOLACTONE 50 MG TABS 1 tablet by mouth twice a day SPIRONOLACTONE 62451241076 No Longer Active Robbie Busby MD Active HYDRALAZINE HCL 25 MG TABS 1 tablet by mouth tid for hypertension HYDRALAZINE HCL 15368031302 No Longer Active Robbie Busby MD Active VIIBRYD 40 MG TABS take 1 tab po qday for depression. VILAZODONE HCL 26024488552 No Longer Active Robbie Busby MD Active TERBINAFINE HCL 250 MG TABS 1 tab po qday for foot infection 2014 TERBINAFINE HCL 18031106722 No Longer Active Robbie Busby MD Active GABAPENTIN 300 MG CAPS 1 po q hs for nerve pain GABAPENTIN 90364603340 Active Robbie Busby MD Active CHERATUSSIN AC 100-10 MG/5ML ORAL SOLN 7.5 mL PO q 4-6 hrs PRN cough GUAIFENESIN-CODEINE 43000383361 No Longer Active Robbie Busby MD Active AZITHROMYCIN 250 MG ORAL TABS 2 tablets PO today---then, 1 tablet PO daily x 4 more days (and 1 optional refill) AZITHROMYCIN 49365595099 No Longer Active Robbie Busby MD Active NORVASC 10 MG TAB 1 tablet by mouth daily AMLODIPINE BESYLATE 45386035133 No Longer Active Alex ALVAREZ Active IMDUR 60 MG TAB CR take 1 tab po qday for blood pressure ISOSORBIDE MONONITRATE Active Robbie Busby MD Active ISOSORBIDE DINITRATE 30 MG TABS Take one by mouth daily ISOSORBIDE DINITRATE 28884821143 No Longer Active Robbie Busby MD Active VIIBRYD 40 MG TABS 1 TA B PO DAILY VILAZODONE HCL 17061601327 Active Robbie Busby MD Active ZITHROMAX 250 MG TAB 2 po today, then 1 po q days 2-5 AZITHROMYCIN 50669657964 No Longer Active Robbie Busby MD Active URCGSIIK-NAC-3 0.3 MG/24HR PTWK apply 2 patches q week for HTN CLONIDINE HCL 93120218177 Active Robbie Busby MD Active DOXAZOSIN MESYLATE 4 MG TABS Take one by mouth daily DOXAZOSIN MESYLATE 60149738161 Active Robbie Busby MD Active TOPROL XL 200 MG [id number] Take one by mouth daily METOPROLOL SUCCINATE 27768146727 Active Robbie Busby MD Active VENLAFAXINE HCL ER 150 MG [id number]-CCP Take one by mouth daily VENLAFAXINE HCL 38055144803 Active Robbie Busby MD Active LIPITOR 40 MG TABS Take one by mouth daily ATORVASTATIN CALCIUM 91553117583 Active Robbie Busby MD Active ISOSORBIDE DINITRATE 30 MG TABS Take one by mouth daily ISOSORBIDE DINITRATE 30 MG TABS 207349 ISOSORBIDE DINITRATE Inactive NORVASC 10 MG TAB 1 tablet by mouth daily NORVASC 10 MG TAB 586672 AMLODIPINE BESYLATE Inactive AZITHROMYCIN 250 MG ORAL TABS 2 tablets PO today---then, 1 tablet PO daily x 4 more days (and 1 optional refill) AZITHROMYCIN 250 MG ORAL TABS 1377564 AZITHROMYCIN Inactive CHERATUSSIN AC 100-10 MG/5ML ORAL SOLN 7.5 mL PO q 4-6 hrs PRN cough CHERATUSSIN AC 100-10 MG/5ML ORAL SOLN 397341 GUAIFENESIN- CODEINE Inactive VIIBRYD 40 MG TABS take 1 tab po qday for depression. VIIBRYD 40 MG TABS VILAZODONE HCL Inactive HYDRALAZINE HCL 25 MG TABS 1 tablet by mouth tid for hypertension HYDRALAZINE HCL 25 MG TABS 910570 HYDRALAZINE HCL Inactive SPIRONOLACTONE 50 MG TABS 1 tablet by mouth twice a day SPIRONOLACTONE 50 MG TABS 973202 SPIRONOLACTONE Inactive FENOFIBRATE 145 MG TABS Take one by mouth daily FENOFIBRATE 145 MG TABS 141184 FENOFIBRATE Inactive PROTONIX 40 MG SOLR 1 po qday for acid reflux PROTONIX 40 MG SOLR 478318 PANTOPRAZOLE SODIUM Inactive CEFDINIR 300 MG ORAL CAPS Take 1 cap po bid x 10 days CEFDINIR 300 MG ORAL CAPS 366714 CEFDINIR Inactive PREDNISONE 20 MG TAB 1 tablet twice daily for 2 days, then 1 tablet once daily for 2 days PREDNISONE 20 MG TAB 303240 PREDNISONE Inactive NYSTATIN 076055 UNIT/ML M/T SUSP 5mL po QID x 10 days NYSTATIN 632778 UNIT/ML M/T SUSP 209881 NYSTATIN Inactive BETADINE 10 % EXT SOLN wash with solution to treat follicultis BETADINE 10 % EXT SOLN 7495292 POVIDONE-IODINE Inactive TRILEPTAL 150 MG ORAL TABS 1 TAB PO Q HS TRILEPTAL 150 MG ORAL TABS 588064 OXCARBAZEPINE Inactive LAMISIL 125 MG ORAL PACK 1 TAB PO DAILY LAMISIL 125 MG ORAL PACK TERBINAFINE HCL Inactive HYDROCHLOROTHIAZIDE TABS Take one by mouth daily HYDROCHLOROTHIAZIDE TABS HYDROCHLOROTHIAZIDE TABS Inactive HYDROCODONE-ACETAMINOPHEN 5-325 MG TABS 1 tab by mouth BID prn back pain 2013 HYDROCODONE-ACETAMINOPHEN 5-325 MG TABS 244073 HYDROCODONE -ACETAMINOPHEN Inactive HYDRALAZINE HCL 50 MG ORAL TABS TWO BY MOUTH THREE TIMES DAILY HYDRALAZINE HCL 50 MG ORAL TABS 986728 HYDRALAZINE HCL Inactive LEVAQUIN 500 MG TAB 1 tablet by mouth daily for 7 days LEVAQUIN 500 MG TAB 274587 LEVOFLOXACIN Inactive SPIRONOLACTONE 25 MG TAB 4 tablets by mouth daily SPIRONOLACTONE 25 MG TAB 163952 SPIRONOLACTONE Inactive MECLIZINE HCL 25 MG TAB one 4 times a day as needed for dizziness MECLIZINE HCL 25 MG TAB 203351 MECLIZINE HCL Inactive CLONIDINE HCL 0.2 MG ORAL TABS 1 TAB BY MOUTH EVERY 8 HOURS 12/29 CLONIDINE HCL 0.2 MG ORAL TABS 763408 CLONIDINE HCL Inactive CYCLOBENZAPRINE HCL 10 MG TABS 1 tablet by mouth three times daily as needed for muscle spasm/pain for 10 days CYCLOBENZAPRINE HCL 10 MG TABS 800496 CYCLOBENZAPRINE HCL Inactive VITAMIN D3 39314 UNIT CAPS 2 CAPS PO WEEKLY VITAMIN D3 60244 UNIT CAPS CHOLECALCIFEROL Inactive FIORICET 50-300-40 MG ORAL CAPS take 1 tab po qday prn migraines. FIORICET 50-300-40 MG ORAL CAPS 881917 [id number] Inactive FLONASE 50 MCG/ACT SUSP 1 spray each nostril twice daily for allergies and runny nose FLONASE 50 MCG/ACT SUSP 2482467 FLUTICASONE PROPIONATE Inactive LORATADINE 10 MG TABS 1 tablet by mouth daily for congestion and allergies. LORATADINE 10 MG TABS 011241 LORATADINE Inactive NITROSTAT 0.4 MG SUBL PRN NITROSTAT 0.4 MG SUBL 380788 NITROGLYCERIN Inactive ZITHROMAX 250 MG TAB 2 po today, then 1 po q days 2-5 ZITHROMAX 250 MG TAB 2394885 AZITHROMYCIN Inactive TERBINAFINE HCL 250 MG TABS 1 tab po qday for foot infection 2014 TERBINAFINE HCL 250 MG TABS 812902 TERBINAFINE HCL Inactive KEFLEX 500 MG CAP 1 po TID x 10 days KEFLEX 500 MG CAP 608602 CEPHALEXIN Inactive BACTRIM DS 800-160 MG TAB 1 tab by mouth twice daily BACTRIM DS 800-160 MG TAB 615269 TRIMETHOPRIM-SULFAMETHOXAZOLE Inactive PREDNISONE 20 MG TAB take 3 tabs daily for 3 days, 2 tabs daily for 3 days, 1 tab daily for 3 days, 1/2 tab daily for 4 days PREDNISONE 20 MG TAB 728262 PREDNISONE Inactive Advance Directives Directive Description Start [...] % 11.0-15.0 platelet count 185 THOUSAND/UL 10*3/mm3 046-984 1393/04/14 mean platelet volume 10.9 fL 7.5-12.5 Lab Report: LIPID PANEL, TSH/899, T4, FREE/866 - Chemistry cholesterol, serum 220 mg/dL 994-447 9889/04/14 HDL cholesterol, serum 30 mg/dL > OR=40 [...] mg/dL Encounters Code Encounter Date Provider Facility CPT-18088 Level 3 Est. Patient 16:07:10 CDT Robbie Busby MD [facility] CPT-27780 Level 4 Est. Patient 11:56:16 CDT Erin Garsia [facility] CPT-12683 Level 3 Est. Patient 17:48:02 CDT Robbie Busby MD [facility] CPT-52815 Level 4 Est. 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 Patient 09:16:37 CDT Robbie Busby MD [facility] CPT-29122 Level 3 Est. Patient 19:38:43 CDT Robbie Busby MD [facility] CPT-82209 Level 3 Est. Patient 11:53:38 CDT Robbie Busby MD [facility] CPT-47552 Level 4 Est. Patient 12:52:22 CDT Rober Rodríguez [facility] CPT-59893 Level 4 Est. Patient 22:55:17 CDT Robbie Busby MD [facility] CPT-91300 Level 3 Est. Patient 12:38:24 CDT Desmond Diaz DO [facility] CPT-89416 Level 4 Est. Patient 11:25:03 SPECIAL EDUCATION RESOURCE TEACHER Robbie Busby MD [facility] CPT-32896 Level 4 Est. Patient 14:50:10 CDT Robbie Busby MD [facility] CPT-39384 Level 4 Est. Patient 23:30:43 CDT Robbie Busby MD [facility] CPT-33114 Level 4 Est. Patient 10:30:43 CDT Robbie Busby MD [facility] CPT-50425 Level 3 Est. Patient 17:08:12 CDT Alex Shaw [facility] CPT-84678 Level 4 Est. Patient 17:51:38 CDT Robbie Busby MD [facility] CPT-74985 Level 4 Est. Patient 14:00:21 CDT Robbie Busby MD [facility] CPT-60304 Level 4 Est. Patient 12:46:48 CDT Robbie Busby MD [facility] CPT-43851 Level 4 Est. Patient 13:34:33 CDT Robbie Busby MD [facility] CPT-80177 Level 4 Est. Patient 16:58:28 CDT Robbie Busby MD [facility] CPT-18982 Level 3 Est. Patient 19:36:53 CDT Alex Shaw [facility] CPT-31132 Level 3 Est. Patient 12:58:15 CDT Robbie Busby MD [facility] Procedures Code Procedure Name Date Entry Date Standard Description CPT-26538 Ribs unilateral 2V - XRAY USE ONLY 12:10:11 CDT CPT-04229 First Vx - Ix admin for Medicare patients 16:32:53 CDT CPT-99585 Boostrix Intramuscular Suspension 5-2.5-18.5 16:32:53 CDT CPT-23013 TB Skin Test 11:42:28 CDT CPT-75914 Tdap 7yrs or > 11:42:28 CDT CPT-J0696 Rocephin 1000 mg (Ceftriaxone) 17:43:43 SPECIAL EDUCATION RESOURCE TEACHER CPT-J1040 Depo Medrol 80 mg (Methyl Prednisolone Acetate) 17:43: 43 SPECIAL EDUCATION RESOURCE TEACHER CPT-J1100 Decadron 8mg (Dexamethasone) 17:43:42 SPECIAL EDUCATION RESOURCE TEACHER CPT-90392 Abx/Therapy Injection 17:43:42 SPECIAL EDUCATION RESOURCE TEACHER CPT-19234 Abx/Therapy Injection 17:43:42 SPECIAL EDUCATION RESOURCE TEACHER CPT-J1040 Depo Medrol 80 mg (Methyl Prednisolone Acetate) 09:43: 34 SPECIAL EDUCATION RESOURCE TEACHER CPT-J1100 Decadron 8mg (Dexamethasone) 09:43:34 SPECIAL EDUCATION RESOURCE TEACHER CPT-J0696 Rocephin 1gm Inj Solr 09:43:34 SPECIAL EDUCATION RESOURCE TEACHER CPT-36187 Wound Culture - LAB USE ONLY 14:00:21 CDT CPT-I/D I/D Abscess 09:16:37 CDT CPT-60157 Venipuncture Draw Fee 15:20:23 CDT CPT-39072 Microalbumin - LAB USE ONLY 16:02:19 CDT CPT-03097 CBC - LAB USE ONLY 16:02:19 CDT CPT-50179 Venipuncture Draw Fee 16:02:19 CDT CPT-G0438 Initial Annual Wellness Exam 08:10:28 CDT CPT-03817 Venipuncture Draw Fee 13:07:17 CDT CPT-G0008 Administration of Influenza Virus Vaccine 16:09:59 CDT CPT-19741 Fluzone Quadrivalent Intramuscular Suspension 0.5 ML 16: 09:59 CDT CPT-94831 Spec Collection and Handling Fee 15:05:50 CDT
--- OUTSIDE RECORDS SUMMARY | 2018-04-18 15:09 | XMS REPORT | Clinical Summary ---
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 Desmond Diaz DO Other malignant secondary hypertension Tachycardia 785.0 Active Rober Rodríguez [employer] Tachycardia, unspecified Insect bite, infected 919.5 Resolved Desmond Diaz DO Insect bite, nonvenomous, of other, multiple, and unspecified sites, infected Abscess, skin 682.9 Resolved Desmond Diaz DO Cellulitis and abscess of unspecified sites URI 465.9 Resolved Desmond Diaz DO Acute upper respiratory infections of unspecified site Hypertension 401.9 Active Rober Rodríguez [employer] Unspecified essential hypertension Sinusitis - acute 461.9 [...] Hypogonadism, low testosterone 257.2 Active Erin Garsia [employer] Other testicular hypofunction Low back pain, chronic 724.2 Active Robbie Busby MD Lumbago Bronchitis-Acute 466.0 Inactive Desmond Diaz DO Acute bronchitis Polydipsia 783.5 Active Desmond Diaz DO Polydipsia Type 2 diabetes mellitus with hyperglycemia Active Robbie Busby MD Sinusitis ICD-461.9 Inactive Emily Atwood LPN 2017 Low back pain, acute ICD-724.2 Inactive Emily Atwood LPN Low back pain, chronic ICD-724.2 Inactive Emily Atwood [employer] Bronchitis, acute ICD-466.0 Inactive Emily Atwood [employer] Onychomycosis, toenails ICD-110.1 Inactive Emily Atwood [employer]OR Dizziness ICD-780.4 Inactive Emily Atwood [employer]ITOR 2017 Folliculitis ICD-704.8 Inactive Emily Atwood [employer] MONITOR Pharyngitis-Acute ICD-462 Inactive Eimly Atwood [employer]ITOR Fatigue ICD-780.79 Inactive Emily Atwood [employer] TE[employer]SO[employer]ITOR 09/20 Hypertension, secondary, malignant ICD-405.09 Inactive Emily Atwood [employer] TE[employer]SO[employer] MONITOR Insect bite, infected ICD-919.5 Inactive Emily Atwood [employer] TE[employer]SOLE MONITOR Abscess, skin ICD-682.9 Inactive Emily Atwood [employer] TELE[employer]SOLE MONITOR URI ICD-465.9 Inactive Emily Atwood [employer] TE[employer]SO[employer] MONITOR Sinusitis - acute ICD-461.9 Inactive Emily Atwood [employer] MONITOR Acute confusion ICD-293.0 Inactive Emily Atwood [employer]OR Headache ICD-784.0 Inactive Emily Atwood [employer] MONITOR 09/20 Back pain ICD-724.5 Inactive Emily Atwood [employer]OR 2017 Rib pain, right sided ICD-786.50 Inactive Emily Atwood [employer]OR Myalgias ICD-729.1 Inactive Emily Atwood LPN 09/20 URI ICD-465.9 Inactive mEily Atwood LPN Bronchitis-Acute ICD-466.0 Inactive Desmond Diaz DO Medication List Medication Instructions Start Date Stop Date Generic Name NDC Status Provider Patient Instruction CYCLOBENZAPRINE HCL 10 MG ORAL TABLET 1 tablet by mouth three times daily as needed for muscle spasm/pain CYCLOBENZAPRINE HCL 71302486698 Active Robbie Busby MD Active METFORMIN HCL 500 MG ORAL TABLET 1 tablet by mouth daily for diabetes type 2 METFORMIN HCL 01795016765 Active Robbie Busby MD Active SINGULAIR 10 MG ORAL TABLET 1 po qday for allergies. MONTELUKAST SODIUM 37756381364 Active Robbie Busby MD Active PREDNISONE 20 MG ORAL TABLET two tabs by mouth today, then one tab by mouth days two and three PREDNISONE 14832149734 No Longer Active Robbie Busby MD Active TOPIRAMATE 50 MG ORAL TABLET 1 po BID for migraines TOPIRAMATE 17038839954 Active JONATHAN Moncada Active AZITHROMYCIN 250 MG ORAL TABLET 2 po qd x 1 day, then 1 po qd x 4 days 09/20 AZITHROMYCIN 39886787870 No Longer Active Desmond Diaz DO Active TOPIRAMATE 50 MG ORAL TABLET take 1 tab po BID for migraines. TOPIRAMATE 38536460559 No Longer Active Desmond Diaz DO Active CYCLOBENZAPRINE HCL 10 MG ORAL TABLET 1 po TID PRN muscle spasm/pain for 10 days CYCLOBENZAPRINE HCL 29569974795 No Longer Active Desmond Diaz DO Active GUAIFENESIN ER 600 MG ORAL TABLET EXTENDED RELEASE 12 HOUR 1 tab po q am 2016 GUAIFENESIN 82293176070 No Longer Active Robbie Busby MD Active DIVALPROEX SODIUM ER 500 MG ORAL TABLET EXTENDED RELEASE 24 HOUR Once daily DIVALPROEX SODIUM 60167343283 Active Robbie Busby MD Active DEPO-TESTOSTERONE 200 MG/ML INTRAMUSCULAR SOLUTION 1 IM Injections every 2 weeks for low testosterone TESTOSTERONE CYPIONATE 21193241285 Active Zulema Blank LPN Active FLUTICASONE PROPIONATE 50 MCG/ACT NASAL SUSPENSION 2 sprays per nostril bid for 1 week, then 1 spray bid FLUTICASONE PROPIONATE 35970129786 Active Rober Rodríguez APRN Active HYDRALAZINE HCL 25 MG ORAL TABLET Take 1 tab BID. HYDRALAZINE HCL 72284845608 Active Rober Rodríguez APRN Active VITAMIN D3 38936 UNIT ORAL TABLET 2 po weekly CHOLECALCIFEROL 99846193963 Active Robbie Busby MD Active OXYCODONE HCL ER 10 MG ORAL TABLET ER 12 HOUR ABUSE-DETERRENT 1 tab po 3 times qd. OXYCODONE HCL 36406479741 Active Robbie Busby MD Active NITROSTAT 0.4 MG SUBLINGUAL TABLET SUBLINGUAL PRN NITROGLYCERIN 16126327608 No Longer Active Robbie Busby MD Active LORATADINE 10 MG ORAL TABLET 1 tablet by mouth daily for congestion and allergies. LORATADINE 14419491427 No Longer Active Robbie Busby MD Active FLONASE 50 MCG/ACT NASAL SUSPENSION 1 spray each nostril twice daily for allergies and runny nose FLUTICASONE PROPIONATE 43897677179 No Longer Active Robbie Busby MD Active FIORICET 50-300-40 MG ORAL CAPSULE take 1 tab po qday prn migraines. [id number] 56538289267 No Longer Active Robbie Busby MD Active VITAMIN D3 01724 UNIT ORAL CAPSULE 2 CAPS PO WEEKLY CHOLECALCIFEROL 89138063139 No Longer Active Robbie Busby MD Active CYCLOBENZAPRINE HCL 10 MG ORAL TABLET 1 tablet by mouth three times daily as needed for muscle spasm/pain for 10 days CYCLOBENZAPRINE HCL 61301818185 No Longer Active Robbie Busby MD Active PREDNISONE 20 MG ORAL TABLET take 3 tabs daily for 3 days, 2 tabs daily for 3 days, 1 tab daily for 3 days, 1/2 tab daily for 4 days PREDNISONE 92172446903 No Longer Active Erin Garsia APRN Active CLONIDINE HCL 0.2 MG ORAL TABLET 1 TAB BY MOUTH EVERY 8 HOURS CLONIDINE HCL 50027352599 No Longer Active Erin Garsia APRN Active MECLIZINE HCL 25 MG ORAL TABLET one 4 times a day as needed for dizziness MECLIZINE HCL 25674476977 No Longer Active Erin Garsia APRN Active SPIRONOLACTONE 25 MG ORAL TABLET 4 tablets by mouth daily SPIRONOLACTONE 14048320563 No Longer Active Erin Garsia APRN Active LEVAQUIN 500 MG ORAL TABLET 1 tablet by mouth daily for 7 days LEVOFLOXACIN 03263853786 No Longer Active Erin Garsia APRN Active BACTRIM DS 800-160 MG ORAL TABLET 1 tab by mouth twice daily 2015 TRIMETHOPRIM-SULFAMETHOXAZOLE 78557417584 No Longer Active Robbie Busby MD Active HYDRALAZINE HCL 50 MG ORAL TABLET TWO BY MOUTH THREE TIMES DAILY HYDRALAZINE HCL 07380780925 No Longer Active Rober Rodríguez APRN Active HYDROCODONE-ACETAMINOPHEN 5-325 MG ORAL TABLET 1 tab by mouth BID prn back pain HYDROCODONE-ACETAMINOPHEN 17820865878 No Longer Active Jillina Anne GONZALEZN Active HYDROCHLOROTHIAZIDE TABLET Take one by mouth daily HYDROCHLOROTHIAZIDE TABS 20386058104 No Longer Active Andrellld Poolel [employer]ER Active LAMISIL 125 MG ORAL PACKET 1 TAB PO DAILY TERBINAFINE HCL 74153792105 No Longer Active Rober Rodríguez APRN Active TRILEPTAL 150 MG ORAL TABLET 1 TAB PO Q HS OXCARBAZEPINE 74661828802 No Longer Active Jillld Poolel [employer]ER Active BETADINE 10 % EXTERNAL SOLUTION wash with solution to treat follicultis 07/29 POVIDONE-IODINE 87689366482 No Longer Active Rober Rodríguez APRN Active NYSTATIN 978321 UNIT/ML MOUTH/THROAT SUSPENSION 5mL po QID x 10 days NYSTATIN 05189604292 No Longer Active Erin Garsia APRN Active PREDNISONE 20 MG ORAL TABLET 1 tablet twice daily for 2 days, then 1 tablet once daily for 2 days PREDNISONE 81959513697 No Longer Active Robbie Busby MD Active CEFDINIR 300 MG ORAL CAPSULE Take 1 cap po bid x 10 days CEFDINIR 15278442106 No Longer Active Robbie Busby MD Active AMLODIPINE BESYLATE 10 MG ORAL TABLET 1 tablet by mouth daily AMLODIPINE BESYLATE 47496266426 Active Robbie Busby MD Active CARVEDILOL 25 MG ORAL TABLET 1 & 1/2 TAB po BID CARVEDILOL 76196546308 Active Robbie Busby MD Active NEXIUM 40 MG ORAL CAPSULE DELAYED RELEASE 1 cap by mouth daily ESOMEPRAZOLE MAGNESIUM 44998269987 Active Robbie Busby MD Active PROTONIX 40 MG INTRAVENOUS SOLUTION RECONSTITUTED 1 po qday for acid reflux PANTOPRAZOLE SODIUM 73769655196 No Longer Active Gali Raida Active KEFLEX 500 MG ORAL CAPSULE 1 po TID x 10 days CEPHALEXIN 39886239656 No Longer Active Robbie Busby MD Active TEMAZEPAM 15 MG ORAL CAPSULE 1 TAB PO Q HS TEMAZEPAM 22174368359 Active Robbie Busby MD Active ALPRAZOLAM 2 MG ORAL TABLET 1 TAB PO BID ALPRAZOLAM 73069124510 Active Robbie Busby MD Active FENOFIBRATE 145 MG ORAL TABLET Take one by mouth daily FENOFIBRATE 63228992360 No Longer Active Robbie Busby MD Active SPIRONOLACTONE 50 MG ORAL TABLET 1 tablet by mouth twice a day SPIRONOLACTONE 51513496819 No Longer Active Robbie Busby MD Active HYDRALAZINE HCL 25 MG ORAL TABLET 1 tablet by mouth tid for hypertension 2013 HYDRALAZINE HCL 74280630845 No Longer Active Robbie Busby MD Active VIIBRYD 40 MG ORAL TABLET take 1 tab po qday for depression. 2014 VILAZODONE HCL 03792757838 No Longer Active Robbie Busby MD Active TERBINAFINE HCL 250 MG ORAL TABLET 1 tab po qday for foot infection TERBINAFINE HCL 40686419900 No Longer Active Robbie Busby MD Active GABAPENTIN 300 MG ORAL CAPSULE 1 po q hs for nerve pain GABAPENTIN 24812979954 Active Robbie Busby MD Active CHERATUSSIN AC 100-10 MG/5ML ORAL SOLUTION 7.5 mL PO q 4-6 hrs PRN cough 2014 GUAIFENESIN-CODEINE 49293172317 No Longer Active Robbie Busby MD Active AZITHROMYCIN 250 MG ORAL TABLET 2 tablets PO today---then, 1 tablet PO daily x 4 more days (and 1 optional refill) AZITHROMYCIN 33426088074 No Longer Active Robbie Busby MD Active NORVASC 10 MG ORAL TABLET 1 tablet by mouth daily AMLODIPINE BESYLATE 70254821399 No Longer Active Alex ALVAREZ Active IMDUR 60 MG ORAL TABLET EXTENDED RELEASE 24 HOUR take 1 tab po qday for blood pressure ISOSORBIDE MONONITRATE 72967267765 Active Robbie Busby MD Active ISOSORBIDE DINITRATE 30 MG ORAL TABLET Take one by mouth daily ISOSORBIDE DINITRATE 40979930269 No Longer Active Robbie Busby MD Active VIIBRYD 40 MG ORAL TABLET 1 TA B PO DAILY VILAZODONE HCL 83037629992 Active Robbie Busby MD Active ZITHROMAX 250 MG ORAL TABLET 2 po today, then 1 po q days 2-5 AZITHROMYCIN 30643379122 No Longer Active Robbie Busby MD Active [id number]-GGL-8 0.3 MG/24HR TRANSDERMAL PATCH WEEKLY apply 2 patches q week for HTN CLONIDINE HCL 15951818724 Active Robbie Busby MD Active DOXAZOSIN MESYLATE 4 MG ORAL TABLET Take one by mouth daily DOXAZOSIN MESYLATE 64484988144 Active Robbie Busby MD Active TOPROL XL 200 MG ORAL TABLET EXTENDED RELEASE 24 HOUR Take one by mouth daily METOPROLOL SUCCINATE 42891163331 Active Robbie Busby MD Active VENLAFAXINE HCL ER 150 MG ORAL TABLET EXTENDED RELEASE 24 HOUR Take one by mouth daily VENLAFAXINE HCL 29430228722 Active Robbie Busby MD Active LIPITOR 40 MG ORAL TABLET Take one by mouth daily ATORVASTATIN CALCIUM 31018857234 Active Robbie Busby MD Active ISOSORBIDE DINITRATE 30 MG ORAL TABLET Take one by mouth daily ISOSORBIDE DINITRATE 30 MG ORAL TABLET 406611 ISOSORBIDE DINITRATE Inactive NORVASC 10 MG ORAL TABLET 1 tablet by mouth daily NORVASC 10 MG ORAL TABLET 393955 AMLODIPINE BESYLATE Inactive AZITHROMYCIN 250 MG ORAL TABLET 2 tablets PO today---then, 1 tablet PO daily x 4 more days (and 1 optional refill) AZITHROMYCIN 250 MG ORAL TABLET 746109 AZITHROMYCIN Inactive CHERATUSSIN AC 100-10 MG/5ML ORAL SOLUTION 7.5 mL PO q 4-6 hrs PRN cough 2014 CHERATUSSIN AC 100-10 MG/5ML ORAL SOLUTION 477701 GUAIFENESIN-CODEINE Inactive VIIBRYD 40 MG ORAL TABLET take 1 tab po qday for depression. 2014 VIIBRYD 40 MG ORAL TABLET VILAZODONE HCL Inactive HYDRALAZINE HCL 25 MG ORAL TABLET 1 tablet by mouth tid for hypertension 2013 HYDRALAZINE HCL 25 MG ORAL TABLET 838781 HYDRALAZINE HCL Inactive SPIRONOLACTONE 50 MG ORAL TABLET 1 tablet by mouth twice a day SPIRONOLACTONE 50 MG ORAL TABLET 134757 SPIRONOLACTONE Inactive FENOFIBRATE 145 MG ORAL TABLET Take one by mouth daily FENOFIBRATE 145 MG ORAL TABLET 592072 FENOFIBRATE Inactive PROTONIX 40 MG INTRAVENOUS SOLUTION RECONSTITUTED 1 po qday for acid reflux PROTONIX 40 MG INTRAVENOUS SOLUTION RECONSTITUTED 837523 PANTOPRAZOLE SODIUM Inactive CEFDINIR 300 MG ORAL CAPSULE Take 1 cap po bid x 10 days CEFDINIR 300 MG ORAL CAPSULE 531869 CEFDINIR Inactive PREDNISONE 20 MG ORAL TABLET 1 tablet twice daily for 2 days, then 1 tablet once daily for 2 days PREDNISONE 20 MG ORAL TABLET 246901 PREDNISONE Inactive NYSTATIN 719435 UNIT/ML MOUTH/THROAT SUSPENSION 5mL po QID x 10 days NYSTATIN 324850 UNIT/ML MOUTH/THROAT SUSPENSION 723318 NYSTATIN Inactive BETADINE 10 % EXTERNAL SOLUTION wash with solution to treat follicultis 07/29 BETADINE 10 % EXTERNAL SOLUTION 4657871 POVIDONE-IODINE Inactive TRILEPTAL 150 MG ORAL TABLET 1 TAB PO Q HS TRILEPTAL 150 MG ORAL TABLET 850568 OXCARBAZEPINE Inactive LAMISIL 125 MG ORAL PACKET 1 TAB PO DAILY LAMISIL 125 MG ORAL PACKET TERBINAFINE HCL Inactive HYDROCHLOROTHIAZIDE TABLET Take one by mouth daily HYDROCHLOROTHIAZIDE TABLET HYDROCHLOROTHIAZIDE TABS Inactive HYDROCODONE-ACETAMINOPHEN 5-325 MG ORAL TABLET 1 tab by mouth BID prn back pain HYDROCODONE-ACETAMINOPHEN 5-325 MG ORAL TABLET 380057 HYDROCODONE-ACETAMINOPHEN Inactive HYDRALAZINE HCL 50 MG ORAL TABLET TWO BY MOUTH THREE TIMES DAILY HYDRALAZINE HCL 50 MG ORAL TABLET 853153 HYDRALAZINE HCL Inactive LEVAQUIN 500 MG ORAL TABLET 1 tablet by mouth daily for 7 days LEVAQUIN 500 MG ORAL TABLET 565924 LEVOFLOXACIN Inactive SPIRONOLACTONE 25 MG ORAL TABLET 4 tablets by mouth daily SPIRONOLACTONE 25 MG ORAL TABLET 608195 SPIRONOLACTONE Inactive MECLIZINE HCL 25 MG ORAL TABLET one 4 times a day as needed for dizziness MECLIZINE HCL 25 MG ORAL TABLET 064856 MECLIZINE HCL Inactive CLONIDINE HCL 0.2 MG ORAL TABLET 1 TAB BY MOUTH EVERY 8 HOURS CLONIDINE HCL 0.2 MG ORAL TABLET 529227 CLONIDINE HCL Inactive CYCLOBENZAPRINE HCL 10 MG ORAL TABLET 1 tablet by mouth three times daily as needed for muscle spasm/pain for 10 days CYCLOBENZAPRINE HCL 10 MG ORAL TABLET 521414 CYCLOBENZAPRINE HCL Inactive VITAMIN D3 77386 UNIT ORAL CAPSULE 2 CAPS PO WEEKLY VITAMIN D3 46172 UNIT ORAL CAPSULE CHOLECALCIFEROL Inactive FIORICET 50-300-40 MG ORAL CAPSULE take 1 tab po qday prn migraines. FIORICET 50-300-40 MG ORAL CAPSULE 524957 BUTALBITAL-APAP- CAFFEINE Inactive FLONASE 50 MCG/ACT NASAL SUSPENSION 1 spray each nostril twice daily for allergies and runny nose FLONASE 50 MCG/ACT NASAL SUSPENSION 6032331 FLUTICASONE PROPIONATE Inactive LORATADINE 10 MG ORAL TABLET 1 tablet by mouth daily for congestion and allergies. LORATADINE 10 MG ORAL TABLET 773375 LORATADINE Inactive NITROSTAT 0.4 MG SUBLINGUAL TABLET SUBLINGUAL PRN NITROSTAT 0.4 MG SUBLINGUAL TABLET SUBLINGUAL 405894 NITROGLYCERIN Inactive GUAIFENESIN ER 600 MG ORAL TABLET EXTENDED RELEASE 12 HOUR 1 tab po q am 2016 GUAIFENESIN ER 600 MG ORAL TABLET EXTENDED RELEASE 12 HOUR GUAIFENESIN Inactive CYCLOBENZAPRINE HCL 10 MG ORAL TABLET 1 po TID PRN muscle spasm/pain for 10 days CYCLOBENZAPRINE HCL 10 MG ORAL TABLET 986727 CYCLOBENZAPRINE HCL Inactive TOPIRAMATE 50 MG ORAL TABLET take 1 tab po BID for migraines. TOPIRAMATE 50 MG ORAL TABLET 667618 TOPIRAMATE Inactive PREDNISONE 20 MG ORAL TABLET two tabs by mouth today, then one tab by mouth days two and three PREDNISONE 20 MG ORAL TABLET 160637 PREDNISONE Inactive ZITHROMAX 250 MG ORAL TABLET 2 po today, then 1 po q days 2-5 ZITHROMAX 250 MG ORAL TABLET 109735 AZITHROMYCIN Inactive TERBINAFINE HCL 250 MG ORAL TABLET 1 tab po qday for foot infection TERBINAFINE HCL 250 MG ORAL TABLET 583484 TERBINAFINE HCL Inactive KEFLEX 500 MG ORAL CAPSULE 1 po TID x 10 days KEFLEX 500 MG ORAL CAPSULE 247037 CEPHALEXIN Inactive BACTRIM DS 800-160 MG ORAL TABLET 1 tab by mouth twice daily 2015 BACTRIM DS 800-160 MG ORAL TABLET 361717 TRIMETHOPRIM- SULFAMETHOXAZOLE Inactive PREDNISONE 20 MG ORAL TABLET take 3 tabs daily for 3 days, 2 tabs daily for 3 days, 1 tab daily for 3 days, 1/2 tab daily for 4 days PREDNISONE 20 MG ORAL TABLET 994419 PREDNISONE Inactive AZITHROMYCIN 250 MG ORAL TABLET 2 po qd x 1 day, then 1 po qd x 4 days 09/20 AZITHROMYCIN 250 MG ORAL TABLET 696785 AZITHROMYCIN Inactive Advance Directives Directive Description Start [...] AUTO - Chemistry sodium, serum 142 mmol/L 187-545 4026/07/17 carbon dioxide, venous blood 28.2 mmol/L 21.0-32.0 [...] % 11.0-15.0 platelet count 185 THOUSAND/UL 10*3/mm3 576-948 6515/04/14 mean platelet volume 10.9 fL 7.5-12.5 Lab Report: HGBA1C, Basic Metabolic Panel - Chemistry hemoglobin A1C, blood, as % of total hemoglobin 6.9 % 4.3-6.0 sodium, serum 139 mmol/L 432-635 7562/01/04 potassium, serum 3.9 mmol/L 3.5-5.2 chloride, serum 103 mmol/L 98-107 carbon dioxide, venous blood 26.9 mmol/L 21.0-32.0 blood glucose 106 mg/dL 65-110 calcium, serum 9.0 mg/dL 8.5-10.1 urea nitrogen, blood 20 mg/dL 7-18 creatinine, serum 1.46 mg/dL 0.60-1.30 Lab Report: LIPID PANEL, TSH/899, T4, FREE/866 - Chemistry cholesterol, serum 220 mg/dL 181-742 7847/04/14 HDL cholesterol, serum 30 mg/dL > OR=40 [...] 1.80 ng/mL 0.00-4.00 Lab Report: VITAMIN D, 25-HYDROXY/03060 - Chemistry vitamin D 25-hydroxy, serum 25 ng/mL 30-100 Office Visit: Confusion, dizziness after fall - Basic LDL target level 130 mg/dL Office Visit: Confusion, dizziness after fall - Chemistry HDL cholesterol, serum, target level 40 mg/dL triglyceride, target level 150 mg/dL cholesterol, target level 200 mg/dL Encounters Code Encounter Date Provider Facility CPT-23103 Level 4 Est. Patient 13:07:39 FUEL OIL CLERK Robbie Busby MD [facility] CPT-12812 Level 4 Est. Patient 15:23:44 FUEL OIL CLERK Desmond Diaz [facility] CPT-26776 Level 3 Est. Patient 15:40:49 CDT Robbie Busby MD [facility] CPT-31810 Level 4 Est. Patient 15:18:19 CDT Robbie Busby MD [facility] CPT-94469 Level 3 Est. Patient 09:00:37 CDT Rober Rodríguez [facility] CPT-57431 Level 3 Est. Patient 16:07:10 CDT Robbie Busby MD [facility] CPT-12256 Level 4 Est. Patient 11:56:16 CDT Erin Garsia [facility] CPT-10164 Level 3 Est. Patient 17:48:02 CDT Robbie Busby MD [facility] CPT-57247 Level 4 Est. Patient 12:00:49 FUEL OIL CLERK Rober Rodríguez [facility] CPT-46946 Level 3 Est. Patient 09:16:37 CDT Robbie Busby MD [facility] CPT-73872 Level 3 Est. Patient 19:38:43 CDT Robbie Busby MD [facility] CPT-88505 Level 3 Est. Patient 11:53:38 CDT Robbie Busby MD [facility] CPT-53123 Level 4 Est. Patient 12:52:22 CDT Rober Rodríguez [facility] CPT-61028 Level 4 Est. Patient 22:55:17 CDT Robbie Busby MD [facility] CPT-19588 Level 3 Est. Patient 12:38:24 CDT Desmond Diaz [facility] CPT-47471 Level 4 Est. Patient 11:25:03 FUEL OIL CLERK Robbie Busby MD [facility] CPT-31568 Level 4 Est. Patient 14:50:10 CDT Robbie Busby MD [facility] CPT-66367 Level 4 Est. Patient 23:30:43 CDT Robbie Busby MD [facility] CPT-25228 Level 4 Est. Patient 10:30:43 CDT Robbie Busby MD [facility] CPT-37959 Level 3 Est. Patient 17:08:12 CDT Alex Shaw [facility] CPT-65733 Level 4 Est. Patient 17:51:38 CDT Robbie Busby MD [facility] CPT-51013 Level 4 Est. Patient 14:00:21 CDT Robbie Busby MD [facility] CPT-96702 Level 4 Est. Patient 12:46:48 CDT Robbie Busby MD [facility] CPT-15007 Level 4 Est. Patient 13:34:33 CDT Robbie Busby MD [facility] CPT-90189 Level 4 Est. Patient 16:58:28 CDT Robbie Busby MD [facility] CPT-70895 Level 3 Est. Patient 19:36:53 CDT Alex ALVAREZ [facility] CPT-61907 Level 3 Est. Patient 12:58:15 CDT Robbie Busby MD [facility] Procedures Code Procedure Name Date Entry Date Standard Description CPT-J1071 Depo Testosterone 200mg 15:33:58 FUEL OIL CLERK CPT-96968 Abx/Therapy Injection 15:33:58 FUEL OIL CLERK CPT-J1071 Depo Testosterone 200mg 09:38:36 FUEL OIL CLERK CPT-73254 Abx/Therapy Injection 09:38:36 FUEL OIL CLERK CPT-J1071 Depo Testosterone 200mg 10:22:56 FUEL OIL CLERK CPT-56271 Abx/Therapy Injection 10:22:56 FUEL OIL CLERK CPT-J1071 Depo Testosterone 200mg 15:40:23 CDT CPT-58631 Abx/Therapy Injection 15:40:23 CDT CPT-J1071 Depo Testosterone 200mg 14:20:43 CDT CPT-12160 Abx/Therapy Injection 14:20:43 CDT CPT-J1071 Depo Testosterone 200mg 14:17:22 CDT CPT-12541 Abx/Therapy Injection 14:17:22 CDT CPT-J1071 Depo Testosterone 200mg 09:03:53 CDT CPT-84975 Abx/Therapy Injection 09:03:53 CDT CPT-G0439 [facility] Annual Wellness Exam 16:47:44 CDT CPT-J1071 Depo Testosterone 200mg 09:06:28 CDT CPT-88184 Abx/Therapy Injection 09:06:28 CDT CPT-J1071 Depo Testosterone 200mg 08:30:01 CDT CPT-17554 Abx/Therapy Injection 08:30:01 CDT CPT-J1071 Depo Testosterone 200mg 08:24:00 CDT CPT-77928 Abx/Therapy Injection 08:24:00 CDT CPT-30390 Venipuncture Draw Fee 14:39:06 CDT CPT-46549 Ribs unilateral 2V - XRAY USE ONLY 12:10:11 CDT CPT-94962 First Vx - Ix admin for Medicare patients 16:32:53 CDT CPT-93601 Boostrix Intramuscular Suspension 5-2.5-18.5 16:32:53 CDT CPT-03990 TB Skin Test 11:42:28 CDT CPT-85740 Tdap 7yrs or > 11:42:28 CDT CPT-J0696 Rocephin 1000 mg (Ceftriaxone) 17:43:43 FUEL OIL CLERK CPT-J1040 Depo Medrol 80 mg (Methyl Prednisolone Acetate) 17:43: 43 FUEL OIL CLERK CPT-J1100 Decadron 8mg (Dexamethasone) 17:43:42 FUEL OIL CLERK CPT-96725 Abx/Therapy Injection 17:43:42 FUEL OIL CLERK CPT-14499 Abx/Therapy Injection 17:43:42 FUEL OIL CLERK CPT-J1040 Depo Medrol 80 mg (Methyl Prednisolone Acetate) 09:43: 34 FUEL OIL CLERK CPT-J1100 Decadron 8mg (Dexamethasone) 09:43:34 FUEL OIL CLERK CPT-J0696 Rocephin 1gm Inj Solr 09:43:34 FUEL OIL CLERK CPT-74771 Wound Culture - LAB USE ONLY 14:00:21 CDT CPT-I/D I/D Abscess 09:16:37 CDT CPT-68312 Venipuncture Draw Fee 15:20:23 CDT CPT-59037 Microalbumin - LAB USE ONLY 16:02:19 CDT CPT-53670 CBC - LAB USE ONLY 16:02:19 CDT CPT-94189 Venipuncture Draw Fee 16:02:19 CDT CPT-G0438 Initial Annual Wellness Exam 08:10:28 CDT CPT-56771 Venipuncture Draw Fee 13:07:17 CDT CPT-G0008 Administration of Influenza Virus Vaccine 16:09:59 CDT CPT-19848 Fluzone Quadrivalent Intramuscular Suspension 0.5 ML 16: 09:59 CDT CPT-96591 Spec Collection and Handling Fee 15:05:50 CDT
--- OUTSIDE RECORDS SUMMARY | 2018-04-18 15:10 | XMS REPORT | Clinical Summary ---
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 OXYCODONE HCL 74323206034 Active Robbie Busby MD Active NITROSTAT 0.4 MG SUBL PRN NITROGLYCERIN 32777656104 No Longer Active Robbie Busby MD Active LORATADINE 10 MG TABS 1 tablet by mouth daily for congestion and allergies. LORATADINE 60572679067 No Longer Active Robbie Busby MD Active FLONASE 50 MCG/ACT SUSP 1 spray each nostril twice daily for allergies and runny nose FLUTICASONE PROPIONATE 41447579604 No Longer Active Robbie Busby MD Active FIORICET 50-300-40 MG ORAL CAPS take 1 tab po qday prn migraines. [id number] 53093670593 No Longer Active Robbie Busby MD Active VITAMIN D3 67909 UNIT CAPS 2 CAPS PO WEEKLY CHOLECALCIFEROL 29664669386 No Longer Active Robbie Busby MD Active CYCLOBENZAPRINE HCL 10 MG TABS 1 tablet by mouth three times daily as needed for muscle spasm/pain for 10 days CYCLOBENZAPRINE HCL 90492144376 No Longer Active Robbie Busby MD Active PREDNISONE 20 MG TAB take 3 tabs daily for 3 days, 2 tabs daily for 3 days, 1 tab daily for 3 days, 1/2 tab daily for 4 days PREDNISONE 10257769534 No Longer Active Erin Garsia APRN Active CLONIDINE HCL 0.2 MG ORAL TABS 1 TAB BY MOUTH EVERY 8 HOURS 12/29 CLONIDINE HCL 61041371748 No Longer Active Erin Garsia APRN Active MECLIZINE HCL 25 MG TAB one 4 times a day as needed for dizziness MECLIZINE HCL 71832125119 No Longer Active Erin Garsia APRN Active SPIRONOLACTONE 25 MG TAB 4 tablets by mouth daily SPIRONOLACTONE 99246369186 No Longer Active Erin Garsia APRN Active LEVAQUIN 500 MG TAB 1 tablet by mouth daily for 7 days LEVOFLOXACIN 15871628630 No Longer Active Erin Garsia APRN Active BACTRIM DS 800-160 MG TAB 1 tab by mouth twice daily TRIMETHOPRIM-SULFAMETHOXAZOLE 76811114283 No Longer Active Robbie Busby MD Active HYDRALAZINE HCL 50 MG ORAL TABS TWO BY MOUTH THREE TIMES DAILY HYDRALAZINE HCL 96489923443 No Longer Active Rober Rodríguez APRN Active HYDROCODONE-ACETAMINOPHEN 5-325 MG TABS 1 tab by mouth BID prn back pain 2013 HYDROCODONE-ACETAMINOPHEN 62745511989 No Longer Active Jillina Anne ARGUELLO Active HYDROCHLOROTHIAZIDE TABS Take one by mouth daily HYDROCHLOROTHIAZIDE TABS 73308253142 No Longer Active Jillina Frazell PROSECUTING ATTORNEY Active LAMISIL 125 MG ORAL PACK 1 TAB PO DAILY TERBINAFINE HCL 27339821141 No Longer Active Jillina Frazell PROSECUTING ATTORNEY Active TRILEPTAL 150 MG ORAL TABS 1 TAB PO Q HS OXCARBAZEPINE 08360355552 No Longer Active Jillina Frazell PROSECUTING ATTORNEY Active BETADINE 10 % EXT SOLN wash with solution to treat follicultis POVIDONE-IODINE 63237855311 No Longer Active Jillina Frazell PROSECUTING ATTORNEY Active NYSTATIN 414509 UNIT/ML M/T SUSP 5mL po QID x 10 days NYSTATIN 66481849519 No Longer Active Erin Garsia APRN Active PREDNISONE 20 MG TAB 1 tablet twice daily for 2 days, then 1 tablet once daily for 2 days PREDNISONE 32973396263 No Longer Active Robbie Busby MD Active CEFDINIR 300 MG ORAL CAPS Take 1 cap po bid x 10 days CEFDINIR 15700565718 No Longer Active Robbie Busby MD Active AMLODIPINE BESYLATE 10 MG TABS 1 tablet by mouth daily AMLODIPINE BESYLATE 58189018913 Active Robbie Busby MD Active CARVEDILOL 25 MG TABS 1 & 1/2 TAB po BID CARVEDILOL 20121406425 Active Robbie Busby MD Active NEXIUM 40 MG CPDR 1 cap by mouth daily ESOMEPRAZOLE MAGNESIUM 42863220889 Active Robbie Busby MD Active PROTONIX 40 MG SOLR 1 po qday for acid reflux PANTOPRAZOLE SODIUM 44998448107 No Longer Active Gali Raida Active KEFLEX 500 MG CAP 1 po TID x 10 days CEPHALEXIN 46654779316 No Longer Active Robbie Busby MD Active TOPIRAMATE 50 MG ORAL TABS take 1 tab po BID for migraines. TOPIRAMATE 52686718576 Active Robbie Busby MD Active TEMAZEPAM 15 MG ORAL CAPS 1 TAB PO Q HS TEMAZEPAM 97806014366 Active Robbie Busby MD Active ALPRAZOLAM 2 MG ORAL TABS 1 TAB PO BID ALPRAZOLAM 14629738643 Active Robbie Busby MD Active FENOFIBRATE 145 MG TABS Take one by mouth daily FENOFIBRATE 08147406655 No Longer Active Robbie Busby MD Active SPIRONOLACTONE 50 MG TABS 1 tablet by mouth twice a day SPIRONOLACTONE 72522492567 No Longer Active Robbie Busby MD Active HYDRALAZINE HCL 25 MG TABS 1 tablet by mouth tid for hypertension HYDRALAZINE HCL 01580048537 No Longer Active Robbie Busby MD Active VIIBRYD 40 MG TABS take 1 tab po qday for depression. VILAZODONE HCL 70365954319 No Longer Active Robbie Busby MD Active TERBINAFINE HCL 250 MG TABS 1 tab po qday for foot infection 2014 TERBINAFINE HCL 01484578966 No Longer Active Robbie Busby MD Active GABAPENTIN 300 MG CAPS 1 po q hs for nerve pain GABAPENTIN 91376263599 Active Robbie Busby MD Active CHERATUSSIN AC 100-10 MG/5ML ORAL SOLN 7.5 mL PO q 4-6 hrs PRN cough GUAIFENESIN-CODEINE 52934715737 No Longer Active Robbie Busby MD Active AZITHROMYCIN 250 MG ORAL TABS 2 tablets PO today---then, 1 tablet PO daily x 4 more days (and 1 optional refill) AZITHROMYCIN 56934797873 No Longer Active Robbie Busby MD Active NORVASC 10 MG TAB 1 tablet by mouth daily AMLODIPINE BESYLATE 65645161184 No Longer Active Alex ALVAREZ Active IMDUR 60 MG TAB CR take 1 tab po qday for blood pressure ISOSORBIDE MONONITRATE Active Robbie Busby MD Active ISOSORBIDE DINITRATE 30 MG TABS Take one by mouth daily ISOSORBIDE DINITRATE 04084958716 No Longer Active Robbie Busby MD Active VIIBRYD 40 MG TABS 1 TA B PO DAILY VILAZODONE HCL 47965711958 Active Robbie Busby MD Active ZITHROMAX 250 MG TAB 2 po today, then 1 po q days 2-5 AZITHROMYCIN 20665803307 No Longer Active Robbie Busby MD Active [id number] 0.3 MG/24HR PTWK apply 2 patches q week for HTN CLONIDINE HCL 27640491393 Active Robbie Busby MD Active DOXAZOSIN MESYLATE 4 MG TABS Take one by mouth daily DOXAZOSIN MESYLATE 37655740700 Active Robbie Busby MD Active TOPROL XL 200 MG [id number] Take one by mouth daily METOPROLOL SUCCINATE 81786715534 Active Robbie Busby MD Active VENLAFAXINE HCL ER 150 MG [id number] Take one by mouth daily VENLAFAXINE HCL 85009829748 Active Robbie Busby MD Active LIPITOR 40 MG TABS Take one by mouth daily ATORVASTATIN CALCIUM 70229468806 Active Robbie Busby MD Active ISOSORBIDE DINITRATE 30 MG TABS Take one by mouth daily ISOSORBIDE DINITRATE 30 MG TABS 488916 ISOSORBIDE DINITRATE Inactive NORVASC 10 MG TAB 1 tablet by mouth daily NORVASC 10 MG TAB 003504 AMLODIPINE BESYLATE Inactive AZITHROMYCIN 250 MG ORAL TABS 2 tablets PO today---then, 1 tablet PO daily x 4 more days (and 1 optional refill) AZITHROMYCIN 250 MG ORAL TABS 9921286 AZITHROMYCIN Inactive CHERATUSSIN AC 100-10 MG/5ML ORAL SOLN 7.5 mL PO q 4-6 hrs PRN cough CHERATUSSIN AC 100-10 MG/5ML ORAL SOLN 425070 GUAIFENESIN- CODEINE Inactive VIIBRYD 40 MG TABS take 1 tab po qday for depression. VIIBRYD 40 MG TABS VILAZODONE HCL Inactive HYDRALAZINE HCL 25 MG TABS 1 tablet by mouth tid for hypertension HYDRALAZINE HCL 25 MG TABS 818587 HYDRALAZINE HCL Inactive SPIRONOLACTONE 50 MG TABS 1 tablet by mouth twice a day SPIRONOLACTONE 50 MG TABS 599113 SPIRONOLACTONE Inactive FENOFIBRATE 145 MG TABS Take one by mouth daily FENOFIBRATE 145 MG TABS 246307 FENOFIBRATE Inactive PROTONIX 40 MG SOLR 1 po qday for acid reflux PROTONIX 40 MG SOLR 593066 PANTOPRAZOLE SODIUM Inactive CEFDINIR 300 MG ORAL CAPS Take 1 cap po bid x 10 days CEFDINIR 300 MG ORAL CAPS 821402 CEFDINIR Inactive PREDNISONE 20 MG TAB 1 tablet twice daily for 2 days, then 1 tablet once daily for 2 days PREDNISONE 20 MG TAB 219871 PREDNISONE Inactive NYSTATIN 954884 UNIT/ML M/T SUSP 5mL po QID x 10 days NYSTATIN 310748 UNIT/ML M/T SUSP 337768 NYSTATIN Inactive BETADINE 10 % EXT SOLN wash with solution to treat follicultis BETADINE 10 % EXT SOLN 4258274 POVIDONE-IODINE Inactive TRILEPTAL 150 MG ORAL TABS 1 TAB PO Q HS TRILEPTAL 150 MG ORAL TABS 949188 OXCARBAZEPINE Inactive LAMISIL 125 MG ORAL PACK 1 TAB PO DAILY LAMISIL 125 MG ORAL PACK TERBINAFINE HCL Inactive HYDROCHLOROTHIAZIDE TABS Take one by mouth daily HYDROCHLOROTHIAZIDE TABS HYDROCHLOROTHIAZIDE TABS Inactive HYDROCODONE-ACETAMINOPHEN 5-325 MG TABS 1 tab by mouth BID prn back pain 2013 HYDROCODONE-ACETAMINOPHEN 5-325 MG TABS 736895 HYDROCODONE -ACETAMINOPHEN Inactive HYDRALAZINE HCL 50 MG ORAL TABS TWO BY MOUTH THREE TIMES DAILY HYDRALAZINE HCL 50 MG ORAL TABS 411610 HYDRALAZINE HCL Inactive LEVAQUIN 500 MG TAB 1 tablet by mouth daily for 7 days LEVAQUIN 500 MG TAB 061294 LEVOFLOXACIN Inactive SPIRONOLACTONE 25 MG TAB 4 tablets by mouth daily SPIRONOLACTONE 25 MG TAB 844567 SPIRONOLACTONE Inactive MECLIZINE HCL 25 MG TAB one 4 times a day as needed for dizziness MECLIZINE HCL 25 MG TAB 113672 MECLIZINE HCL Inactive CLONIDINE HCL 0.2 MG ORAL TABS 1 TAB BY MOUTH EVERY 8 HOURS 12/29 CLONIDINE HCL 0.2 MG ORAL TABS 254893 CLONIDINE HCL Inactive CYCLOBENZAPRINE HCL 10 MG TABS 1 tablet by mouth three times daily as needed for muscle spasm/pain for 10 days CYCLOBENZAPRINE HCL 10 MG TABS 648659 CYCLOBENZAPRINE HCL Inactive VITAMIN D3 97138 UNIT CAPS 2 CAPS PO WEEKLY VITAMIN D3 99272 UNIT CAPS CHOLECALCIFEROL Inactive FIORICET 50-300-40 MG ORAL CAPS take 1 tab po qday prn migraines. FIORICET 50-300-40 MG ORAL CAPS 977422 [id number] Inactive FLONASE 50 MCG/ACT SUSP 1 spray each nostril twice daily for allergies and runny nose FLONASE 50 MCG/ACT SUSP 5070809 FLUTICASONE PROPIONATE Inactive LORATADINE 10 MG TABS 1 tablet by mouth daily for congestion and allergies. LORATADINE 10 MG TABS 279375 LORATADINE Inactive NITROSTAT 0.4 MG SUBL PRN NITROSTAT 0.4 MG SUBL 736708 NITROGLYCERIN Inactive ZITHROMAX 250 MG TAB 2 po today, then 1 po q days 2-5 ZITHROMAX 250 MG TAB 3915298 AZITHROMYCIN Inactive TERBINAFINE HCL 250 MG TABS 1 tab po qday for foot infection 2014 TERBINAFINE HCL 250 MG TABS 328159 TERBINAFINE HCL Inactive KEFLEX 500 MG CAP 1 po TID x 10 days KEFLEX 500 MG CAP 667829 CEPHALEXIN Inactive BACTRIM DS 800-160 MG TAB 1 tab by mouth twice daily BACTRIM DS 800-160 MG TAB 796846 TRIMETHOPRIM-SULFAMETHOXAZOLE Inactive PREDNISONE 20 MG TAB take 3 tabs daily for 3 days, 2 tabs daily for 3 days, 1 tab daily for 3 days, 1/2 tab daily for 4 days PREDNISONE 20 MG TAB 002852 PREDNISONE Inactive Advance Directives Directive Description Start [...] % 11.0-15.0 platelet count 185 THOUSAND/UL 10*3/mm3 269-140 2602/04/14 mean platelet volume 10.9 fL 7.5-12.5 Lab Report: LIPID PANEL, TSH/899, T4, FREE/866 - Chemistry cholesterol, serum 220 mg/dL 567-119 7225/04/14 HDL cholesterol, serum 30 mg/dL > OR=40 [...] mg/dL Encounters Code Encounter Date Provider Facility CPT-16932 Level 3 Est. Patient 16:07:10 CDT Robbie Busby MD [facility] CPT-09883 Level 4 Est. Patient 11:56:16 CDT Erin Garsia [facility] [place] CPT-18491 Level 3 Est. Patient 17:48:02 CDT Robbie Busby MD [facility] CPT-25799 Level 4 Est. 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 Patient 09:16:37 CDT Robbie Busby MD [facility] CPT-65773 Level 3 Est. Patient 19:38:43 CDT Robbie Busby MD [facility] CPT-02484 Level 3 Est. Patient 11:53:38 CDT Robbie Busby MD [facility] CPT-65919 Level 4 Est. Patient 12:52:22 CDT Rober Rodríguez [facility] [place] CPT-61605 Level 4 Est. Patient 22:55:17 CDT Robbie Busby MD [facility] CPT-31716 Level 3 Est. Patient 12:38:24 CDT Desmond Diaz DO [facility] CPT-43541 Level 4 Est. 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 Patient 14:50:10 CDT Robbie Busby MD [facility] CPT-51990 Level 4 Est. Patient 23:30:43 CDT Robbie Busby MD [facility] CPT-39812 Level 4 Est. Patient 10:30:43 CDT Robbie Busby MD [facility] CPT-55934 Level 3 Est. Patient 17:08:12 CDT Alex Shaw [facility] CPT-39493 Level 4 Est. Patient 17:51:38 CDT Robbie Busby MD [facility] CPT-98478 Level 4 Est. Patient 14:00:21 CDT Robbie Busby MD [facility] CPT-70180 Level 4 Est. Patient 12:46:48 CDT Robbie Busby MD [facility] CPT-23910 Level 4 Est. Patient 13:34:33 CDT Robbie Busby MD [facility] CPT-12564 Level 4 Est. Patient 16:58:28 CDT Robbie Busby MD [facility] CPT-65625 Level 3 Est. Patient 19:36:53 CDT Alex ALVAREZ [facility] CPT-02734 Level 3 Est. Patient 12:58:15 CDT Robbie Busby MD [facility] Procedures Code Procedure Name Date Entry Date Standard Description CPT-89298 Venipuncture Draw Fee 14:39:06 CDT CPT-39108 Ribs unilateral 2V - XRAY USE ONLY 12:10:11 CDT CPT-18054 First Vx - Ix admin for Medicare patients 16:32:53 CDT CPT-39284 Boostrix Intramuscular Suspension 5-2.5-18.5 16:32:53 CDT CPT-90536 TB Skin Test 11:42:28 CDT CPT-12651 Tdap 7yrs or > 11:42:28 CDT CPT-J0696 Rocephin 1000 mg (Ceftriaxone) 17:43:43 FISH ROE PROCESSOR CPT-J1040 Depo Medrol 80 mg (Methyl Prednisolone Acetate) 17:43: 43 FISH ROE PROCESSOR CPT-J1100 Decadron 8mg (Dexamethasone) 17:43:42 FISH ROE PROCESSOR CPT-35398 Abx/Therapy Injection 17:43:42 FISH ROE PROCESSOR CPT-22858 Abx/Therapy Injection 17:43:42 FISH ROE PROCESSOR CPT-J1040 Depo Medrol 80 mg (Methyl Prednisolone Acetate) 09:43: 34 FISH ROE PROCESSOR CPT-J1100 Decadron 8mg (Dexamethasone) 09:43:34 FISH ROE PROCESSOR CPT-J0696 Rocephin 1gm Inj Solr 09:43:34 FISH ROE PROCESSOR CPT-86996 Wound Culture - LAB USE ONLY 14:00:21 CDT CPT-I/D I/D Abscess 09:16:37 CDT CPT-09069 Venipuncture Draw Fee 15:20:23 CDT CPT-92196 Microalbumin - LAB USE ONLY 16:02:19 CDT CPT-10586 CBC - LAB USE ONLY 16:02:19 CDT CPT-76610 Venipuncture Draw Fee 16:02:19 CDT CPT-G0438 Initial Annual Wellness Exam 08:10:28 CDT CPT-58294 Venipuncture Draw Fee 13:07:17 CDT CPT-G0008 Administration of Influenza Virus Vaccine 16:09:59 CDT CPT-11262 Fluzone Quadrivalent Intramuscular Suspension 0.5 ML 16: 09:59 CDT CPT-38786 Spec Collection and Handling Fee 15:05:50 CDT
--- OUTSIDE RECORDS SUMMARY | 2018-04-18 15:10 | XMS REPORT | Clinical Summary ---
Author Author Admin, [facility] Organization [facility] Address Unknown Phone [...] NDC Status Provider Patient Instruction VITAMIN D3 71299 UNIT CAPS 2 CAPS PO WEEKLY CHOLECALCIFEROL 01305647431 Active Vanessa August Active CEFDINIR 300 MG ORAL CAPS Take 1 cap po bid x 10 days CEFDINIR 78332882476 Active Jackie Junior MA Active PREDNISONE 20 MG TAB 1 tablet twice daily for 2 days, then 1 tablet once daily for 2 days PREDNISONE 68765912533 Active Desmond Diaz DO Active NEXIUM 40 MG CPDR 1 cap by mouth daily ESOMEPRAZOLE MAGNESIUM 71554645485 Active Gali Negro Active PROTONIX 40 MG SOLR 1 po qday for acid reflux PANTOPRAZOLE SODIUM 96245572979 No Longer Active Galileonila Negro Active BETADINE 10 % EXT SOLN wash with solution to treat follicultis POVIDONE-IODINE 56398266149 Active Robbie Busby MD Active KEFLEX 500 MG CAP 1 po TID x 10 days CEPHALEXIN 10310876007 No Longer Active Robbie Busby MD Active FIORICET 50-300-40 MG ORAL CAPS take 1 tab po qday prn migraines. [id number] 79551822009 Active Robbie Busby MD Active TOPIRAMATE 50 MG ORAL TABS take 1 tab po BID for migraines. TOPIRAMATE 23484066062 Active Robbie Busby MD Active HYDRALAZINE HCL 50 MG ORAL TABS TWO BY MOUTH THREE TIMES DAILY HYDRALAZINE HCL 65461815673 Active Robbie Busby MD Active MECLIZINE HCL 25 MG TAB one 4 times a day as needed for dizziness MECLIZINE HCL 80044062742 Active Robbie Busby MD Active TRILEPTAL 150 MG ORAL TABS 1 TAB PO Q HS OXCARBAZEPINE 68363401120 Active Robbie Busby MD Active TEMAZEPAM 15 MG ORAL CAPS 1 TAB PO Q HS TEMAZEPAM 55424978407 Active Robbie Busby MD Active ALPRAZOLAM 2 MG ORAL TABS 1 TAB PO BID ALPRAZOLAM 58487504662 Active Robbie Busby MD Active FENOFIBRATE 145 MG TABS Take one by mouth daily FENOFIBRATE 54819645776 No Longer Active Robbie Busby MD Active LAMISIL 125 MG ORAL PACK 1 TAB PO DAILY TERBINAFINE HCL 37604593006 Active Robbie Busby MD Active SPIRONOLACTONE 50 MG TABS 1 tablet by mouth twice a day SPIRONOLACTONE 41004642289 No Longer Active Robbie Busby MD Active HYDRALAZINE HCL 25 MG TABS 1 tablet by mouth tid for hypertension HYDRALAZINE HCL 38227983623 No Longer Active Robbie Busby MD Active VIIBRYD 40 MG TABS take 1 tab po qday for depression. VILAZODONE HCL 30298182686 No Longer Active Robbie Busby MD Active TERBINAFINE HCL 250 MG TABS 1 tab po qday for foot infection 2014 TERBINAFINE HCL 10869914957 No Longer Active Robbie Busby MD Active GABAPENTIN 300 MG CAPS 1 po q hs for nerve pain GABAPENTIN 87422922813 Active Robbie Busby MD Active FLONASE 50 MCG/ACT SUSP 1 spray each nostril twice daily for allergies and runny nose FLUTICASONE PROPIONATE 85243969813 Active Robbie Busby MD Active CHERATUSSIN AC 100-10 MG/5ML ORAL SOLN 7.5 mL PO q 4-6 hrs PRN cough GUAIFENESIN-CODEINE 78908026061 No Longer Active Robbie Busby MD Active AZITHROMYCIN 250 MG ORAL TABS 2 tablets PO today---then, 1 tablet PO daily x 4 more days (and 1 optional refill) AZITHROMYCIN 93578522820 No Longer Active Robbie Busby MD Active CLONIDINE HCL 0.2 MG ORAL TABS 1 TAB BY MOUTH EVERY 8 HOURS CLONIDINE HCL 59578812617 Active Robbie Busby MD Active HYDROCHLOROTHIAZIDE TABS Take one by mouth daily HYDROCHLOROTHIAZIDE TABS 75171493703 Active Alex ALVAREZ Active NORVASC 10 MG TAB 1 tablet by mouth daily AMLODIPINE BESYLATE 71392665524 No Longer Active Alex ALVAREZ Active IMDUR 60 MG TAB CR take 1 tab po qday for blood pressure ISOSORBIDE MONONITRATE Active Robbie Busby MD Active ISOSORBIDE DINITRATE 30 MG TABS Take one by mouth daily ISOSORBIDE DINITRATE 06520150633 No Longer Active Robbie Busby MD Active VIIBRYD 40 MG TABS 1 TA B PO DAILY VILAZODONE HCL 92748545165 Active Erin Garsia APRN Active LORATADINE 10 MG TABS 1 tablet by mouth daily for congestion and allergies. LORATADINE 42167910039 Active Robbie Busby MD Active ZITHROMAX 250 MG TAB 2 po today, then 1 po q days 2-5 AZITHROMYCIN 20701654896 No Longer Active Robbie Busby MD Active HYDROCODONE-ACETAMINOPHEN 5-325 MG TABS 1 tab by mouth BID prn back pain 2013 HYDROCODONE-ACETAMINOPHEN 47735073164 Active Robbie Busby MD Active [id number] 0.3 MG/24HR PTWK apply 2 patches q week for HTN CLONIDINE HCL 58046173057 Active Robbie Busby MD Active NITROSTAT 0.4 MG SUBL PRN NITROGLYCERIN 54015783557 Active Robbie Busby MD Active DOXAZOSIN MESYLATE 4 MG TABS Take one by mouth daily DOXAZOSIN MESYLATE 32535706116 Active Robbie Busby MD Active TOPROL XL 200 MG [id number] Take one by mouth daily METOPROLOL SUCCINATE 83373564527 Active Robbie Busby MD Active VENLAFAXINE HCL ER 150 MG [id number] Take one by mouth daily VENLAFAXINE HCL 35136734437 Active Robbie Busby MD Active LIPITOR 40 MG TABS Take one by mouth daily ATORVASTATIN CALCIUM 25593756860 Active Robbie Busby MD Active ISOSORBIDE DINITRATE 30 MG TABS Take one by mouth daily ISOSORBIDE DINITRATE 30 MG TABS 528110 ISOSORBIDE DINITRATE Inactive NORVASC 10 MG TAB 1 tablet by mouth daily NORVASC 10 MG TAB 996256 AMLODIPINE BESYLATE Inactive AZITHROMYCIN 250 MG ORAL TABS 2 tablets PO today---then, 1 tablet PO daily x 4 more days (and 1 optional refill) AZITHROMYCIN 250 MG ORAL TABS 5966825 AZITHROMYCIN Inactive CHERATUSSIN AC 100-10 MG/5ML ORAL SOLN 7.5 mL PO q 4-6 hrs PRN cough CHERATUSSIN AC 100-10 MG/5ML ORAL SOLN 201567 GUAIFENESIN- CODEINE Inactive VIIBRYD 40 MG TABS take 1 tab po qday for depression. VIIBRYD 40 MG TABS VILAZODONE HCL Inactive HYDRALAZINE HCL 25 MG TABS 1 tablet by mouth tid for hypertension HYDRALAZINE HCL 25 MG TABS 354745 HYDRALAZINE HCL Inactive SPIRONOLACTONE 50 MG TABS 1 tablet by mouth twice a day SPIRONOLACTONE 50 MG TABS 465586 SPIRONOLACTONE Inactive FENOFIBRATE 145 MG TABS Take one by mouth daily FENOFIBRATE 145 MG TABS 862900 FENOFIBRATE Inactive PROTONIX 40 MG SOLR 1 po qday for acid reflux PROTONIX 40 MG SOLR 399006 PANTOPRAZOLE SODIUM Inactive ZITHROMAX 250 MG TAB 2 po today, then 1 po q days 2-5 ZITHROMAX 250 MG TAB 0630668 AZITHROMYCIN Inactive TERBINAFINE HCL 250 MG TABS 1 tab po qday for foot infection 2014 TERBINAFINE HCL 250 MG TABS 324349 TERBINAFINE HCL Inactive KEFLEX 500 MG CAP 1 po TID x 10 days KEFLEX 500 MG CAP 583255 CEPHALEXIN Inactive Vital Signs Date Name Value [...] Acid - Chemistry sodium, serum 139 mmol/L 783-451 2435/04/22 carbon dioxide, venous blood 29.4 mmol/L 21.0-32.0 [...] PANEL - Chemistry cholesterol, serum 211 mg/dL 497-887 4820/08/31 triglyceride, serum, fasting 429 mg/dL 30-200 HDL [...] to Follow Negative Lab Report: VITAMIN D, 25-HYDROXY/05256 - Chemistry vitamin D 25-hydroxy, serum 23 ng/mL 30-100 Encounters Code Encounter Date Provider Facility CPT-04909 Level 3 Est. Patient 12:38:24 CDT Desmond Diaz DO [facility] CPT-24776 Level 4 Est. 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 Patient 14:50:10 CDT Robbie Busby MD [facility] CPT-82012 Level 4 Est. Patient 23:30:43 CDT Robbie Busby MD [facility] CPT-55682 Level 4 Est. Patient 10:30:43 CDT Robbie Busby MD [facility] CPT-89686 Level 3 Est. Patient 17:08:12 CDT Alex ALVAREZ [facility] CPT-47480 Level 4 Est. Patient 17:51:38 CDT Robbie Busby MD [facility] CPT-82430 Level 4 Est. Patient 14:00:21 CDT Robbie Busby MD [facility] CPT-78383 Level 4 Est. Patient 12:46:48 CDT Robbie Busby MD [facility] CPT-39626 Level 4 Est. Patient 13:34:33 CDT Robbie Busby MD [facility] CPT-34774 Level 4 Est. Patient 16:58:28 CDT Robbie Busby MD [facility] CPT-30481 Level 3 Est. Patient 19:36:53 CDT Alex ALVAREZ [facility] CPT-22105 Level 3 Est. Patient 12:58:15 CDT Robbie Busby MD [facility] Procedures Code Procedure Name Date Entry Date Standard Description CPT-98298 Venipuncture Draw Fee 13:07:17 CDT CPT-G0008 Administration of Influenza Virus Vaccine 16:09:59 CDT CPT-41225 Fluzone Quadrivalent Intramuscular Suspension 0.5 ML 16: 09:59 CDT CPT-15906 Spec Collection and Handling Fee 15:05:50 CDT
--- OUTSIDE RECORDS SUMMARY | 2018-04-18 15:11 | XMS REPORT | Clinical Summary ---
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 OXYCODONE HCL 16218668215 Active Robbie Busby MD Active NITROSTAT 0.4 MG SUBL PRN NITROGLYCERIN 98288509044 No Longer Active Robbie Busby MD Active LORATADINE 10 MG TABS 1 tablet by mouth daily for congestion and allergies. LORATADINE 34944232174 No Longer Active Robbie Busby MD Active FLONASE 50 MCG/ACT SUSP 1 spray each nostril twice daily for allergies and runny nose FLUTICASONE PROPIONATE 99028057817 No Longer Active Robbie Busby MD Active FIORICET 50-300-40 MG ORAL CAPS take 1 tab po qday prn migraines. [id number] 12976822053 No Longer Active Robbie Busby MD Active VITAMIN D3 14488 UNIT CAPS 2 CAPS PO WEEKLY CHOLECALCIFEROL 32832427034 No Longer Active Robbie Busby MD Active CYCLOBENZAPRINE HCL 10 MG TABS 1 tablet by mouth three times daily as needed for muscle spasm/pain for 10 days CYCLOBENZAPRINE HCL 20938358189 No Longer Active Robbie Busby MD Active PREDNISONE 20 MG TAB take 3 tabs daily for 3 days, 2 tabs daily for 3 days, 1 tab daily for 3 days, 1/2 tab daily for 4 days PREDNISONE 68330773831 No Longer Active Erin Garsia APRN Active CLONIDINE HCL 0.2 MG ORAL TABS 1 TAB BY MOUTH EVERY 8 HOURS 12/29 CLONIDINE HCL 32406436198 No Longer Active Erin Garsia APRN Active MECLIZINE HCL 25 MG TAB one 4 times a day as needed for dizziness MECLIZINE HCL 72096119146 No Longer Active Erin Garsia APRN Active SPIRONOLACTONE 25 MG TAB 4 tablets by mouth daily SPIRONOLACTONE 11750097341 No Longer Active Erin Garsia APRN Active LEVAQUIN 500 MG TAB 1 tablet by mouth daily for 7 days LEVOFLOXACIN 62682354449 No Longer Active Erin Garsia APRN Active BACTRIM DS 800-160 MG TAB 1 tab by mouth twice daily TRIMETHOPRIM-SULFAMETHOXAZOLE 55563131009 No Longer Active Robbie Busby MD Active HYDRALAZINE HCL 50 MG ORAL TABS TWO BY MOUTH THREE TIMES DAILY HYDRALAZINE HCL 05186292280 No Longer Active Rober Rodríguez APRN Active HYDROCODONE-ACETAMINOPHEN 5-325 MG TABS 1 tab by mouth BID prn back pain 2013 HYDROCODONE-ACETAMINOPHEN 93353226707 No Longer Active Rober Rodríguez APRN Active HYDROCHLOROTHIAZIDE TABS Take one by mouth daily HYDROCHLOROTHIAZIDE TABS 98625174362 No Longer Active Rober Rodríguez APRN Active LAMISIL 125 MG ORAL PACK 1 TAB PO DAILY TERBINAFINE HCL 03269554155 No Longer Active Jillina Franeha [employer]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 TRILEPTAL 150 MG ORAL TABS 1 TAB PO Q HS OXCARBAZEPINE 68594508136 No Longer Active Jillina Frazell [employer]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 BETADINE 10 % EXT SOLN wash with solution to treat follicultis POVIDONE-IODINE 65019410202 No Longer Active Jillina Frazell [employer]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 NYSTATIN 382268 UNIT/ML M/T SUSP 5mL po QID x 10 days NYSTATIN 43225784145 No Longer Active Erin Garsia APRN Active PREDNISONE 20 MG TAB 1 tablet twice daily for 2 days, then 1 tablet once daily for 2 days PREDNISONE 83834742123 No Longer Active Robbie Busby MD Active CEFDINIR 300 MG ORAL CAPS Take 1 cap po bid x 10 days CEFDINIR 08429618743 No Longer Active Robbie Busby MD Active AMLODIPINE BESYLATE 10 MG TABS 1 tablet by mouth daily AMLODIPINE BESYLATE 93673564079 Active Robbie Busby MD Active CARVEDILOL 25 MG TABS 1 & 1/2 TAB po BID CARVEDILOL 55879224124 Active Robbie Busby MD Active NEXIUM 40 MG CPDR 1 cap by mouth daily ESOMEPRAZOLE MAGNESIUM 81167050228 Active Robbie Busby MD Active PROTONIX 40 MG SOLR 1 po qday for acid reflux PANTOPRAZOLE SODIUM 14622517123 No Longer Active Gali Raida Active KEFLEX 500 MG CAP 1 po TID x 10 days CEPHALEXIN 50530840570 No Longer Active Robbie Busby MD Active TOPIRAMATE 50 MG ORAL TABS take 1 tab po BID for migraines. TOPIRAMATE 69092652523 Active Robbie Busby MD Active TEMAZEPAM 15 MG ORAL CAPS 1 TAB PO Q HS TEMAZEPAM 81604120974 Active Robbie Busby MD Active ALPRAZOLAM 2 MG ORAL TABS 1 TAB PO BID ALPRAZOLAM 48151084175 Active Robbie Busby MD Active FENOFIBRATE 145 MG TABS Take one by mouth daily FENOFIBRATE 90224670430 No Longer Active Robbie Busby MD Active SPIRONOLACTONE 50 MG TABS 1 tablet by mouth twice a day SPIRONOLACTONE 75967152550 No Longer Active Robbie Busby MD Active HYDRALAZINE HCL 25 MG TABS 1 tablet by mouth tid for hypertension HYDRALAZINE HCL 62610461283 No Longer Active Robbie Busby MD Active VIIBRYD 40 MG TABS take 1 tab po qday for depression. VILAZODONE HCL 40330595674 No Longer Active Robbie Busby MD Active TERBINAFINE HCL 250 MG TABS 1 tab po qday for foot infection 2014 TERBINAFINE HCL 63139898643 No Longer Active Robbie Busby MD Active GABAPENTIN 300 MG CAPS 1 po q hs for nerve pain GABAPENTIN 19434474520 Active Robbie Busby MD Active CHERATUSSIN AC 100-10 MG/5ML ORAL SOLN 7.5 mL PO q 4-6 hrs PRN cough GUAIFENESIN-CODEINE 85894853791 No Longer Active Robbie Busby MD Active AZITHROMYCIN 250 MG ORAL TABS 2 tablets PO today---then, 1 tablet PO daily x 4 more days (and 1 optional refill) AZITHROMYCIN 08461710228 No Longer Active Robbie Busby MD Active NORVASC 10 MG TAB 1 tablet by mouth daily AMLODIPINE BESYLATE 75027985722 No Longer Active Alex ALVAREZ Active IMDUR 60 MG TAB CR take 1 tab po qday for blood pressure ISOSORBIDE MONONITRATE Active Robbie Busby MD Active ISOSORBIDE DINITRATE 30 MG TABS Take one by mouth daily ISOSORBIDE DINITRATE 27399041102 No Longer Active Robbie Busby MD Active VIIBRYD 40 MG TABS 1 TA B PO DAILY VILAZODONE HCL 88215125843 Active Robbie Busby MD Active ZITHROMAX 250 MG TAB 2 po today, then 1 po q days 2-5 AZITHROMYCIN 90997072454 No Longer Active Robbie Busby MD Active [id number] 0.3 MG/24HR PTWK apply 2 patches q week for HTN CLONIDINE HCL 43709805422 Active Robbie Busby MD Active DOXAZOSIN MESYLATE 4 MG TABS Take one by mouth daily DOXAZOSIN MESYLATE 50618358110 Active Robbie Busby MD Active TOPROL XL 200 MG [id number] Take one by mouth daily METOPROLOL SUCCINATE 00240063444 Active Robbie Busby MD Active VENLAFAXINE HCL ER 150 MG [id number] Take one by mouth daily VENLAFAXINE HCL 08845712592 Active Robbie Busby MD Active LIPITOR 40 MG TABS Take one by mouth daily ATORVASTATIN CALCIUM 54461864034 Active Robbie Busby MD Active ISOSORBIDE DINITRATE 30 MG TABS Take one by mouth daily ISOSORBIDE DINITRATE 30 MG TABS 826395 ISOSORBIDE DINITRATE Inactive NORVASC 10 MG TAB 1 tablet by mouth daily NORVASC 10 MG TAB 596857 AMLODIPINE BESYLATE Inactive AZITHROMYCIN 250 MG ORAL TABS 2 tablets PO today---then, 1 tablet PO daily x 4 more days (and 1 optional refill) AZITHROMYCIN 250 MG ORAL TABS 9285301 AZITHROMYCIN Inactive CHERATUSSIN AC 100-10 MG/5ML ORAL SOLN 7.5 mL PO q 4-6 hrs PRN cough CHERATUSSIN AC 100-10 MG/5ML ORAL SOLN 145237 GUAIFENESIN- CODEINE Inactive VIIBRYD 40 MG TABS take 1 tab po qday for depression. VIIBRYD 40 MG TABS VILAZODONE HCL Inactive HYDRALAZINE HCL 25 MG TABS 1 tablet by mouth tid for hypertension HYDRALAZINE HCL 25 MG TABS 494547 HYDRALAZINE HCL Inactive SPIRONOLACTONE 50 MG TABS 1 tablet by mouth twice a day SPIRONOLACTONE 50 MG TABS 321313 SPIRONOLACTONE Inactive FENOFIBRATE 145 MG TABS Take one by mouth daily FENOFIBRATE 145 MG TABS 206295 FENOFIBRATE Inactive PROTONIX 40 MG SOLR 1 po qday for acid reflux PROTONIX 40 MG SOLR 785972 PANTOPRAZOLE SODIUM Inactive CEFDINIR 300 MG ORAL CAPS Take 1 cap po bid x 10 days CEFDINIR 300 MG ORAL CAPS 109980 CEFDINIR Inactive PREDNISONE 20 MG TAB 1 tablet twice daily for 2 days, then 1 tablet once daily for 2 days PREDNISONE 20 MG TAB 992975 PREDNISONE Inactive NYSTATIN 374026 UNIT/ML M/T SUSP 5mL po QID x 10 days NYSTATIN 282577 UNIT/ML M/T SUSP 879023 NYSTATIN Inactive BETADINE 10 % EXT SOLN wash with solution to treat follicultis BETADINE 10 % EXT SOLN 5296105 POVIDONE-IODINE Inactive TRILEPTAL 150 MG ORAL TABS 1 TAB PO Q HS TRILEPTAL 150 MG ORAL TABS 604761 OXCARBAZEPINE Inactive LAMISIL 125 MG ORAL PACK 1 TAB PO DAILY LAMISIL 125 MG ORAL PACK TERBINAFINE HCL Inactive HYDROCHLOROTHIAZIDE TABS Take one by mouth daily HYDROCHLOROTHIAZIDE TABS HYDROCHLOROTHIAZIDE TABS Inactive HYDROCODONE-ACETAMINOPHEN 5-325 MG TABS 1 tab by mouth BID prn back pain 2013 HYDROCODONE-ACETAMINOPHEN 5-325 MG TABS 889121 HYDROCODONE -ACETAMINOPHEN Inactive HYDRALAZINE HCL 50 MG ORAL TABS TWO BY MOUTH THREE TIMES DAILY HYDRALAZINE HCL 50 MG ORAL TABS 546864 HYDRALAZINE HCL Inactive LEVAQUIN 500 MG TAB 1 tablet by mouth daily for 7 days LEVAQUIN 500 MG TAB 089513 LEVOFLOXACIN Inactive SPIRONOLACTONE 25 MG TAB 4 tablets by mouth daily SPIRONOLACTONE 25 MG TAB 517816 SPIRONOLACTONE Inactive MECLIZINE HCL 25 MG TAB one 4 times a day as needed for dizziness MECLIZINE HCL 25 MG TAB 502370 MECLIZINE HCL Inactive CLONIDINE HCL 0.2 MG ORAL TABS 1 TAB BY MOUTH EVERY 8 HOURS 12/29 CLONIDINE HCL 0.2 MG ORAL TABS 853417 CLONIDINE HCL Inactive CYCLOBENZAPRINE HCL 10 MG TABS 1 tablet by mouth three times daily as needed for muscle spasm/pain for 10 days CYCLOBENZAPRINE HCL 10 MG TABS 126053 CYCLOBENZAPRINE HCL Inactive VITAMIN D3 30248 UNIT CAPS 2 CAPS PO WEEKLY VITAMIN D3 00797 UNIT CAPS CHOLECALCIFEROL Inactive FIORICET 50-300-40 MG ORAL CAPS take 1 tab po qday prn migraines. FIORICET 50-300-40 MG ORAL CAPS 279374 [id number] Inactive FLONASE 50 MCG/ACT SUSP 1 spray each nostril twice daily for allergies and runny nose FLONASE 50 MCG/ACT SUSP 8980750 FLUTICASONE PROPIONATE Inactive LORATADINE 10 MG TABS 1 tablet by mouth daily for congestion and allergies. LORATADINE 10 MG TABS 862229 LORATADINE Inactive NITROSTAT 0.4 MG SUBL PRN NITROSTAT 0.4 MG SUBL 437781 NITROGLYCERIN Inactive ZITHROMAX 250 MG TAB 2 po today, then 1 po q days 2-5 ZITHROMAX 250 MG TAB 0029900 AZITHROMYCIN Inactive TERBINAFINE HCL 250 MG TABS 1 tab po qday for foot infection 2014 TERBINAFINE HCL 250 MG TABS 455484 TERBINAFINE HCL Inactive KEFLEX 500 MG CAP 1 po TID x 10 days KEFLEX 500 MG CAP 657851 CEPHALEXIN Inactive BACTRIM DS 800-160 MG TAB 1 tab by mouth twice daily BACTRIM DS 800-160 MG TAB 465819 TRIMETHOPRIM-SULFAMETHOXAZOLE Inactive PREDNISONE 20 MG TAB take 3 tabs daily for 3 days, 2 tabs daily for 3 days, 1 tab daily for 3 days, 1/2 tab daily for 4 days PREDNISONE 20 MG TAB 651264 PREDNISONE Inactive Advance Directives Directive Description Start [...] % 11.0-15.0 platelet count 185 THOUSAND/UL 10*3/mm3 308-634 3936/04/14 mean platelet volume 10.9 fL 7.5-12.5 Lab Report: LIPID PANEL, TSH/899, T4, FREE/866 - Chemistry cholesterol, serum 220 mg/dL 699-871 3307/04/14 HDL cholesterol, serum 30 mg/dL > OR=40 [...] mg/dL Encounters Code Encounter Date Provider Facility CPT-49950 Level 3 Est. Patient 16:07:10 CDT Robbie Busby MD [facility] CPT-31121 Level 4 Est. Patient 11:56:16 CDT Erin Garsia [facility] CPT-36420 Level 3 Est. Patient 17:48:02 CDT Robbie Busby MD [facility] CPT-09859 Level 4 Est. 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 Patient 09:16:37 CDT Robbie Busby MD [facility] CPT-48953 Level 3 Est. Patient 19:38:43 CDT Robbie Busby MD [facility] CPT-06118 Level 3 Est. Patient 11:53:38 CDT Robbie Busby MD [facility] CPT-76917 Level 4 Est. Patient 12:52:22 CDT Rober Rodríguez [facility] CPT-99218 Level 4 Est. Patient 22:55:17 CDT Robbie Busby MD [facility] CPT-10866 Level 3 Est. Patient 12:38:24 CDT Desmond Diaz DO [facility] CPT-42024 Level 4 Est. 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 Patient 14:50:10 CDT Robbie Busby MD [facility] CPT-82972 Level 4 Est. Patient 23:30:43 CDT Robbie Busby MD [facility] CPT-97078 Level 4 Est. Patient 10:30:43 CDT Robbie Busby MD [facility] CPT-27486 Level 3 Est. Patient 17:08:12 CDT Alex Shaw [facility] CPT-67290 Level 4 Est. Patient 17:51:38 CDT Robbie Busby MD [facility] CPT-98797 Level 4 Est. Patient 14:00:21 CDT Robbie Busby MD [facility] CPT-77912 Level 4 Est. Patient 12:46:48 CDT Robbie Busby MD [facility] CPT-30591 Level 4 Est. Patient 13:34:33 CDT Robbie Busby MD [facility] CPT-60168 Level 4 Est. Patient 16:58:28 CDT Robbie Busby MD [facility] CPT-36386 Level 3 Est. Patient 19:36:53 CDT Alex Shaw [facility] CPT-70496 Level 3 Est. 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 CPT-J1040 Depo Medrol 80 mg (Methyl Prednisolone Acetate) 17:43: 43 UTILITY 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 CPT-J1100 Decadron 8mg (Dexamethasone) 17:43:42 UTILITY 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 CPT-84752 Abx/Therapy Injection 17:43:42 UTILITY 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 CPT-92699 Abx/Therapy Injection 17:43:42 UTILITY 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 CPT-J1040 Depo Medrol 80 mg (Methyl Prednisolone Acetate) 09:43: 34 UTILITY 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 CPT-J1100 Decadron 8mg (Dexamethasone) 09:43:34 UTILITY 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 CPT-J0696 Rocephin 1gm Inj Solr 09:43:34 UTILITY 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 CPT-82488 Wound Culture - LAB USE ONLY 14:00:21 CDT CPT-I/D I/D Abscess 09:16:37 CDT CPT-40834 Venipuncture Draw Fee 15:20:23 CDT CPT-00646 Microalbumin - LAB USE ONLY 16:02:19 CDT CPT-58425 CBC - LAB USE ONLY 16:02:19 CDT CPT-17832 Venipuncture Draw Fee 16:02:19 CDT CPT-G0438 Initial Annual Wellness Exam 08:10:28 CDT CPT-29514 Venipuncture Draw Fee 13:07:17 CDT CPT-G0008 Administration of Influenza Virus Vaccine 16:09:59 CDT CPT-56941 Fluzone Quadrivalent Intramuscular Suspension 0.5 ML 16: 09:59 CDT CPT-08040 Spec Collection and Handling Fee 15:05:50 CDT
--- OUTSIDE RECORDS SUMMARY | 2018-04-18 15:11 | XMS REPORT | Clinical Summary ---
Author Author Admin, AKUA Organization [facility] Address Unknown Phone Unavailable Allergies, Adverse [...] day as needed for dizziness MECLIZINE HCL 69759436765 Active Robbie Busby MD Active TRILEPTAL 150 MG ORAL TABS 1 TAB PO Q HS OXCARBAZEPINE 90386574235 Active Robbie Busby MD Active TEMAZEPAM 15 MG ORAL CAPS 1 TAB PO Q HS TEMAZEPAM 60379448968 Active Robbie Busby MD Active ALPRAZOLAM 2 MG ORAL TABS 1 TAB PO BID ALPRAZOLAM 40599628438 Active Robbie Busby MD Active FENOFIBRATE 145 MG TABS Take one by mouth daily FENOFIBRATE 94343491001 No Longer Active Robbie Busby MD Active LAMISIL 125 MG ORAL PACK 1 TAB PO DAILY TERBINAFINE HCL 53101129886 Active Robbie Busby MD Active SPIRONOLACTONE 50 MG TABS 1 tablet by mouth twice a day SPIRONOLACTONE 17441152716 No Longer Active Robbie Busby MD Active HYDRALAZINE HCL 25 MG TABS 1 tablet by mouth tid for hypertension HYDRALAZINE HCL 35447638141 No Longer Active Robbie Busby MD Active VIIBRYD 40 MG TABS take 1 tab po qday for depression. VILAZODONE HCL 79454126108 No Longer Active Robbie Busby MD Active TERBINAFINE HCL 250 MG TABS 1 tab po qday for foot infection 2014 TERBINAFINE HCL 39646493578 No Longer Active Robbie Busby MD Active GABAPENTIN 300 MG CAPS 1 po q hs for nerve pain GABAPENTIN 46072708245 Active Robbie Busby MD Active FLONASE 50 MCG/ACT SUSP 1 spray each nostril twice daily for allergies and runny nose FLUTICASONE PROPIONATE 28930725642 Active Robbie Busby MD Active CHERATUSSIN AC 100-10 MG/5ML ORAL SOLN 7.5 mL PO q 4-6 hrs PRN cough GUAIFENESIN-CODEINE 48329941712 No Longer Active Robbie Busby MD Active AZITHROMYCIN 250 MG ORAL TABS 2 tablets PO today---then, 1 tablet PO daily x 4 more days (and 1 optional refill) AZITHROMYCIN 53485987409 No Longer Active Robbie Busby MD Active CLONIDINE HCL 0.2 MG ORAL TABS 1 TAB BY MOUTH EVERY 8 HOURS CLONIDINE HCL 14174692242 Active Robbie Busby MD Active HYDROCHLOROTHIAZIDE TABS Take one by mouth daily HYDROCHLOROTHIAZIDE TABS 00745835431 Active Alex ALVAREZ Active NORVASC 10 MG TAB 1 tablet by mouth daily AMLODIPINE BESYLATE 02516585080 No Longer Active Alex ALVAREZ Active PROTONIX 40 MG SOLR 1 po qday for acid reflux PANTOPRAZOLE SODIUM 56648811880 Active Robbie Busby MD Active IMDUR 60 MG TAB CR take 1 tab po qday for blood pressure ISOSORBIDE MONONITRATE Active Robbie Busby MD Active ISOSORBIDE DINITRATE 30 MG TABS Take one by mouth daily ISOSORBIDE DINITRATE 73171994973 No Longer Active Robbie Busby MD Active VIIBRYD 40 MG TABS 1 TA B PO DAILY VILAZODONE HCL 49369967248 Active Robbie Busby MD Active LORATADINE 10 MG TABS 1 tablet by mouth daily for congestion and allergies. LORATADINE 61934326531 Active Robbie Busby MD Active ZITHROMAX 250 MG TAB 2 po today, then 1 po q days 2-5 AZITHROMYCIN 50512905996 No Longer Active Robbie Busby MD Active HYDROCODONE-ACETAMINOPHEN 5-325 MG TABS 1 tab by mouth BID prn back pain 2013 HYDROCODONE-ACETAMINOPHEN 72661575431 Active Robbie Busby MD Active HYDRALAZINE HCL 50 MG TABS take 1 tab po QID for high blood pressure HYDRALAZINE HCL 30548363999 Active Robbie Busby MD Active [id number]-8 0.3 MG/24HR PTWK apply 2 patches q week for HTN CLONIDINE HCL 27519298910 Active Alexa Menon MD PhD Active NITROSTAT 0.4 MG SUBL PRN NITROGLYCERIN 23468388331 Active Robbei Busby MD Active DOXAZOSIN MESYLATE 4 MG TABS Take one by mouth daily DOXAZOSIN MESYLATE 58857974177 Active Robbie Busby MD Active TOPROL XL 200 MG [id number] Take one by mouth daily METOPROLOL SUCCINATE 61223009846 Active Robbie Busby MD Active VENLAFAXINE HCL ER 150 MG [id number]-SJF Take one by mouth daily VENLAFAXINE HCL 42524219652 Active Robbie Busby MD Active LIPITOR 40 MG TABS Take one by mouth daily ATORVASTATIN CALCIUM 59682261874 Active Robbie Busby MD Active ISOSORBIDE DINITRATE 30 MG TABS Take one by mouth daily ISOSORBIDE DINITRATE 30 MG TABS 114610 ISOSORBIDE DINITRATE Inactive NORVASC 10 MG TAB 1 tablet by mouth daily NORVASC 10 MG TAB 621975 AMLODIPINE BESYLATE Inactive AZITHROMYCIN 250 MG ORAL TABS 2 tablets PO today---then, 1 tablet PO daily x 4 more days (and 1 optional refill) AZITHROMYCIN 250 MG ORAL TABS 0058951 AZITHROMYCIN Inactive CHERATUSSIN AC 100-10 MG/5ML ORAL SOLN 7.5 mL PO q 4-6 hrs PRN cough CHERATUSSIN AC 100-10 MG/5ML ORAL SOLN 630631 GUAIFENESIN- CODEINE Inactive VIIBRYD 40 MG TABS take 1 tab po qday for depression. VIIBRYD 40 MG TABS VILAZODONE HCL Inactive HYDRALAZINE HCL 25 MG TABS 1 tablet by mouth tid for hypertension HYDRALAZINE HCL 25 MG TABS 495938 HYDRALAZINE HCL Inactive SPIRONOLACTONE 50 MG TABS 1 tablet by mouth twice a day SPIRONOLACTONE 50 MG TABS 206449 SPIRONOLACTONE Inactive FENOFIBRATE 145 MG TABS Take one by mouth daily FENOFIBRATE 145 MG TABS 415723 FENOFIBRATE Inactive ZITHROMAX 250 MG TAB 2 po today, then 1 po q days 2-5 ZITHROMAX 250 MG TAB 7238901 AZITHROMYCIN Inactive TERBINAFINE HCL 250 MG TABS 1 tab po qday for foot infection 2014 TERBINAFINE HCL 250 MG TABS 267316 TERBINAFINE HCL Inactive Vital Signs Date Name [...] Panel - Chemistry sodium, serum 141 mmol/L 677-659 4430/12/05 potassium, serum 4.0 mmol/L 3.5-5.2 chloride, serum [...] 0.60-1.30 Encounters Code Encounter Date Provider Facility CPT-78092 Level 4 Est. Patient 23:30:43 CDT Robbie Busby MD [facility] CPT-29176 Level 4 Est. Patient 10:30:43 CDT Robbie Busby MD [facility] CPT-03737 Level 3 Est. Patient 17:08:12 CDT Alex Shaw [facility] CPT-11055 Level 4 Est. Patient 17:51:38 CDT Robbie Busby MD [facility] CPT-89601 Level 4 Est. Patient 14:00:21 CDT Robbie Busby MD [facility] CPT-40524 Level 4 Est. Patient 12:46:48 CDT Robbie Busby MD [facility] CPT-97392 Level 4 Est. Patient 13:34:33 CDT Robbie Busby MD [facility] CPT-96543 Level 4 Est. Patient 16:58:28 CDT Robbie Busby MD [facility] CPT-22372 Level 3 Est. Patient 19:36:53 CDT Alex ALVAREZ [facility] CPT-93988 Level 3 Est. Patient 12:58:15 CDT Robbie Busby MD [facility] Procedures Code Procedure Name Date Entry Date Standard Description CPT-G0008 Administration of Influenza Virus Vaccine 16:09:59 CDT CPT-02820 Fluzone Quadrivalent Intramuscular Suspension 0.5 ML 16: 09:59 CDT CPT-73557 Spec Collection and Handling Fee 15:05:50 CDT
--- OUTSIDE RECORDS SUMMARY | 2018-04-18 15:12 | XMS REPORT | Clinical Summary ---
Author Author Admin, [facility] Organization [facility] Address Unknown Phone Unavailable Allergies, Adverse [...] 1 tab by mouth twice daily TRIMETHOPRIM-SULFAMETHOXAZOLE [id number] No Longer Active Robbie Busby MD Active SPIRONOLACTONE 25 MG TAB 4 tablets by mouth daily SPIRONOLACTONE 74074640427 Active Robbie Busby MD Active HYDRALAZINE HCL 50 MG ORAL TABS TWO BY MOUTH THREE TIMES DAILY HYDRALAZINE HCL 49969140405 No Longer Active Jillina Frazell SPORTS PHYSICIAN Active HYDROCODONE-ACETAMINOPHEN 5-325 MG TABS 1 tab by mouth BID prn back pain 2013 HYDROCODONE-ACETAMINOPHEN 94046690490 No Longer Active Jillina Frazell SPORTS PHYSICIAN Active HYDROCHLOROTHIAZIDE TABS Take one by mouth daily HYDROCHLOROTHIAZIDE TABS 49360542717 No Longer Active Jillina Frazell SPORTS PHYSICIAN Active LAMISIL 125 MG ORAL PACK 1 TAB PO DAILY TERBINAFINE HCL 27938341946 No Longer Active Jillina Frazell SPORTS PHYSICIAN Active TRILEPTAL 150 MG ORAL TABS 1 TAB PO Q HS OXCARBAZEPINE 08781985648 No Longer Active Jillina Frazell SPORTS PHYSICIAN Active BETADINE 10 % EXT SOLN wash with solution to treat follicultis POVIDONE-IODINE 24676644325 No Longer Active Jillina Frazell SPORTS PHYSICIAN Active NYSTATIN 737073 UNIT/ML M/T SUSP 5mL po QID x 10 days NYSTATIN 13921179588 No Longer Active Erin Garsia APRN Active PREDNISONE 20 MG TAB 1 tablet twice daily for 2 days, then 1 tablet once daily for 2 days PREDNISONE 12895727775 No Longer Active Robbie Busby MD Active CEFDINIR 300 MG ORAL CAPS Take 1 cap po bid x 10 days CEFDINIR 79311219802 No Longer Active Robbie Busby MD Active AMLODIPINE BESYLATE 10 MG TABS 1 tablet by mouth daily AMLODIPINE BESYLATE 26084654556 Active Robbie Busby MD Active CARVEDILOL 25 MG TABS 1 & 1/2 TAB po BID CARVEDILOL 70851941906 Active Robbie Busby MD Active VITAMIN D3 26748 UNIT CAPS 2 CAPS PO WEEKLY CHOLECALCIFEROL 12199931430 Active Erin Garsia APRN Active NEXIUM 40 MG CPDR 1 cap by mouth daily ESOMEPRAZOLE MAGNESIUM 25348677618 Active Gali Sruthi Active PROTONIX 40 MG SOLR 1 po qday for acid reflux PANTOPRAZOLE SODIUM 91771317617 No Longer Active Gali Torresjuan carlos Active KEFLEX 500 MG CAP 1 po TID x 10 days CEPHALEXIN 92688269249 No Longer Active Robbie Busby MD Active FIORICET 50-300-40 MG ORAL CAPS take 1 tab po qday prn migraines. [id number] 17404427232 Active Robbie Busby MD Active TOPIRAMATE 50 MG ORAL TABS take 1 tab po BID for migraines. TOPIRAMATE 05283569069 Active Robbie Busby MD Active MECLIZINE HCL 25 MG TAB one 4 times a day as needed for dizziness MECLIZINE HCL 68462301950 Active Robbie Bubsy MD Active TEMAZEPAM 15 MG ORAL CAPS 1 TAB PO Q HS TEMAZEPAM 21484263025 Active Robbie Busby MD Active ALPRAZOLAM 2 MG ORAL TABS 1 TAB PO BID ALPRAZOLAM 96042139901 Active Robbie Busby MD Active FENOFIBRATE 145 MG TABS Take one by mouth daily FENOFIBRATE 89866894843 No Longer Active Robbie Busby MD Active SPIRONOLACTONE 50 MG TABS 1 tablet by mouth twice a day SPIRONOLACTONE 26422322639 No Longer Active Robbie Busby MD Active HYDRALAZINE HCL 25 MG TABS 1 tablet by mouth tid for hypertension HYDRALAZINE HCL 78462033651 No Longer Active Robbie Busby MD Active VIIBRYD 40 MG TABS take 1 tab po qday for depression. VILAZODONE HCL 24672323262 No Longer Active Robbie Busby MD Active TERBINAFINE HCL 250 MG TABS 1 tab po qday for foot infection 2014 TERBINAFINE HCL 02935918841 No Longer Active Robbie Busby MD Active GABAPENTIN 300 MG CAPS 1 po q hs for nerve pain GABAPENTIN 09705291235 Active Robbie Busby MD Active FLONASE 50 MCG/ACT SUSP 1 spray each nostril twice daily for allergies and runny nose FLUTICASONE PROPIONATE 23774879531 Active Robbie Busby MD Active CHERATUSSIN AC 100-10 MG/5ML ORAL SOLN 7.5 mL PO q 4-6 hrs PRN cough GUAIFENESIN-CODEINE 97461089042 No Longer Active Robbie Busby MD Active AZITHROMYCIN 250 MG ORAL TABS 2 tablets PO today---then, 1 tablet PO daily x 4 more days (and 1 optional refill) AZITHROMYCIN 02014282196 No Longer Active Robbie Busby MD Active CLONIDINE HCL 0.2 MG ORAL TABS 1 TAB BY MOUTH EVERY 8 HOURS CLONIDINE HCL 74531914601 Active Robbie Busby MD Active NORVASC 10 MG TAB 1 tablet by mouth daily AMLODIPINE BESYLATE 78032431113 No Longer Active lAex ALVAREZ Active IMDUR 60 MG TAB CR take 1 tab po qday for blood pressure ISOSORBIDE MONONITRATE Active Robbie Busby MD Active ISOSORBIDE DINITRATE 30 MG TABS Take one by mouth daily ISOSORBIDE DINITRATE 72830868797 No Longer Active Robbie Busby MD Active VIIBRYD 40 MG TABS 1 TA B PO DAILY VILAZODONE HCL 38972079016 Active Robbie Busby MD Active LORATADINE 10 MG TABS 1 tablet by mouth daily for congestion and allergies. LORATADINE 89518620087 Active Robbie Busby MD Active ZITHROMAX 250 MG TAB 2 po today, then 1 po q days 2-5 AZITHROMYCIN 53516861731 No Longer Active Robbie Busby MD Active IVDHXIJS-AGZ-6 0.3 MG/24HR PTWK apply 2 patches q week for HTN CLONIDINE HCL 68081484135 Active Robbie Busby MD Active NITROSTAT 0.4 MG SUBL PRN NITROGLYCERIN 38848203682 Active Robbie Busby MD Active DOXAZOSIN MESYLATE 4 MG TABS Take one by mouth daily DOXAZOSIN MESYLATE 53140812489 Active Robbie Busby MD Active TOPROL XL 200 MG [id number] Take one by mouth daily METOPROLOL SUCCINATE 92546799676 Active Robbie Busby MD Active VENLAFAXINE HCL ER 150 MG [id number] Take one by mouth daily VENLAFAXINE HCL 48716867527 Active Robbie Busby MD Active LIPITOR 40 MG TABS Take one by mouth daily ATORVASTATIN CALCIUM 81514368922 Active Robbie Busby MD Active ISOSORBIDE DINITRATE 30 MG TABS Take one by mouth daily ISOSORBIDE DINITRATE 30 MG TABS 086728 ISOSORBIDE DINITRATE Inactive NORVASC 10 MG TAB 1 tablet by mouth daily NORVASC 10 MG TAB 768513 AMLODIPINE BESYLATE Inactive AZITHROMYCIN 250 MG ORAL TABS 2 tablets PO today---then, 1 tablet PO daily x 4 more days (and 1 optional refill) AZITHROMYCIN 250 MG ORAL TABS 8466274 AZITHROMYCIN Inactive CHERATUSSIN AC 100-10 MG/5ML ORAL SOLN 7.5 mL PO q 4-6 hrs PRN cough CHERATUSSIN AC 100-10 MG/5ML ORAL SOLN 703575 GUAIFENESIN- CODEINE Inactive VIIBRYD 40 MG TABS take 1 tab po qday for depression. VIIBRYD 40 MG TABS VILAZODONE HCL Inactive HYDRALAZINE HCL 25 MG TABS 1 tablet by mouth tid for hypertension HYDRALAZINE HCL 25 MG TABS 005915 HYDRALAZINE HCL Inactive SPIRONOLACTONE 50 MG TABS 1 tablet by mouth twice a day SPIRONOLACTONE 50 MG TABS 420314 SPIRONOLACTONE Inactive FENOFIBRATE 145 MG TABS Take one by mouth daily FENOFIBRATE 145 MG TABS 417212 FENOFIBRATE Inactive PROTONIX 40 MG SOLR 1 po qday for acid reflux PROTONIX 40 MG SOLR 789990 PANTOPRAZOLE SODIUM Inactive CEFDINIR 300 MG ORAL CAPS Take 1 cap po bid x 10 days CEFDINIR 300 MG ORAL CAPS 803639 CEFDINIR Inactive PREDNISONE 20 MG TAB 1 tablet twice daily for 2 days, then 1 tablet once daily for 2 days PREDNISONE 20 MG TAB 261813 PREDNISONE Inactive NYSTATIN 264560 UNIT/ML M/T SUSP 5mL po QID x 10 days NYSTATIN 116391 UNIT/ML M/T SUSP 578064 NYSTATIN Inactive BETADINE 10 % EXT SOLN wash with solution to treat follicultis BETADINE 10 % EXT SOLN 3787782 POVIDONE-IODINE Inactive TRILEPTAL 150 MG ORAL TABS 1 TAB PO Q HS TRILEPTAL 150 MG ORAL TABS 614901 OXCARBAZEPINE Inactive LAMISIL 125 MG ORAL PACK 1 TAB PO DAILY LAMISIL 125 MG ORAL PACK TERBINAFINE HCL Inactive HYDROCHLOROTHIAZIDE TABS Take one by mouth daily HYDROCHLOROTHIAZIDE TABS HYDROCHLOROTHIAZIDE TABS Inactive HYDROCODONE-ACETAMINOPHEN 5-325 MG TABS 1 tab by mouth BID prn back pain 2013 HYDROCODONE-ACETAMINOPHEN 5-325 MG TABS 532094 HYDROCODONE -ACETAMINOPHEN Inactive HYDRALAZINE HCL 50 MG ORAL TABS TWO BY MOUTH THREE TIMES DAILY HYDRALAZINE HCL 50 MG ORAL TABS 996495 HYDRALAZINE HCL Inactive ZITHROMAX 250 MG TAB 2 po today, then 1 po q days 2-5 ZITHROMAX 250 MG TAB 4556821 AZITHROMYCIN Inactive TERBINAFINE HCL 250 MG TABS 1 tab po qday for foot infection 2014 TERBINAFINE HCL 250 MG TABS 520944 TERBINAFINE HCL Inactive KEFLEX 500 MG CAP 1 po TID x 10 days KEFLEX 500 MG CAP 929591 CEPHALEXIN Inactive BACTRIM DS 800-160 MG TAB 1 tab by mouth twice daily BACTRIM DS 800-160 MG TAB 740637 TRIMETHOPRIM-SULFAMETHOXAZOLE Inactive Advance Directives Directive Description Start [...] Acid - Chemistry sodium, serum 139 mmol/L 981-700 7827/04/22 carbon dioxide, venous blood 29.4 mmol/L 21.0-32.0 [...] to Follow Negative Lab Report: VITAMIN D, 25-HYDROXY/04159 - Chemistry vitamin D 25-hydroxy, serum 23 ng/mL 30-100 Encounters Code Encounter Date Provider Facility [facility]-[id number] Level 3 Est. Patient 09:16:37 CDT Robbie Busby MD [facility]-53700 Level 3 Est. Patient 19:38:43 CDT Robbie Busby MD [facility]-91237 Level 3 Est. Patient 11:53:38 CDT Robbie Busby MD [facility]-22948 Level 4 Est. Patient 12:52:22 CDT Rober Rodríguez APRN [facility] CPT-49877 Level 4 Est. Patient 22:55:17 CDT Robbie Busby MD [facility] CPT-33448 Level 3 Est. Patient 12:38:24 CDT Desmond Diaz DO [facility] CPT-73742 Level 4 Est. 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 Patient 14:50:10 CDT Robbie Busby MD [facility] CPT-99528 Level 4 Est. Patient 23:30:43 CDT Robbie Busby MD [facility] CPT-97049 Level 4 Est. Patient 10:30:43 CDT Robbie Busby MD [facility] CPT-16280 Level 3 Est. Patient 17:08:12 CDT Alex ALVAREZ [facility] CPT-09602 Level 4 Est. Patient 17:51:38 CDT Robbie Busby MD [facility] CPT-17361 Level 4 Est. Patient 14:00:21 CDT Robbie Busby MD [facility] CPT-67431 Level 4 Est. Patient 12:46:48 CDT Robbie Busby MD [facility] CPT-76983 Level 4 Est. Patient 13:34:33 CDT Robbie Busby MD [facility] CPT-65354 Level 4 Est. Patient 16:58:28 CDT Robbie Busby MD [facility] CPT-90548 Level 3 Est. Patient 19:36:53 CDT Alex ALVAREZ [facility] CPT-93019 Level 3 Est. Patient 12:58:15 CDT Robbie Busby MD [facility] Procedures Code Procedure Name Date Entry Date Standard Description CPT-98104 Wound Culture - LAB USE ONLY 14:00:21 CDT CPT-I/D I/D Abscess 09:16:37 CDT CPT-60976 Venipuncture Draw Fee 15:20:23 CDT CPT-16097 Microalbumin - LAB USE ONLY 16:02:19 CDT CPT-66326 CBC - LAB USE ONLY 16:02:19 CDT CPT-29760 Venipuncture Draw Fee 16:02:19 CDT CPT-G0438 Initial Annual Wellness Exam 08:10:28 CDT CPT-81036 Venipuncture Draw Fee 13:07:17 CDT CPT-G0008 Administration of Influenza Virus Vaccine 16:09:59 CDT CPT-11197 Fluzone Quadrivalent Intramuscular Suspension 0.5 ML 16: 09:59 CDT CPT-84126 Spec Collection and Handling Fee 15:05:50 CDT
--- OUTSIDE RECORDS SUMMARY | 2018-04-18 15:12 | XMS REPORT | Clinical Summary ---
Author Author Admin, [facility] Organization [facility] Address Unknown Phone Unavailable Allergies, Adverse Reactions, [...] tablet once daily for 2 days PREDNISONE 37093549826 No Longer Active Robbie Busby MD Active CEFDINIR 300 MG ORAL CAPS Take 1 cap po bid x 10 days CEFDINIR 46729382027 No Longer Active Robbie Busby MD Active NYSTATIN 385307 UNIT/ML M/T SUSP 5mL po QID x 10 days NYSTATIN 69411679125 Active Gali Negro Active AMLODIPINE BESYLATE 10 MG TABS 1 tablet by mouth daily AMLODIPINE BESYLATE 12999998830 Active Robbie Busby MD Active CARVEDILOL 25 MG TABS 1 & 1/2 TAB po BID CARVEDILOL 49578528172 Active Robbie Busby MD Active VITAMIN D3 72458 UNIT CAPS 2 CAPS PO WEEKLY CHOLECALCIFEROL 01557832784 Active Erin Garsia [employer]ARN EX[employer]INER [employer]KEINS Active NEXIUM 40 MG CPDR 1 cap by mouth daily ESOMEPRAZOLE MAGNESIUM 94184276637 Active Gali Negro Active PROTONIX 40 MG SOLR 1 po qday for acid reflux PANTOPRAZOLE SODIUM 35252422668 No Longer Active Galileonila Negro Active BETADINE 10 % EXT SOLN wash with solution to treat follicultis POVIDONE-IODINE 37937271401 Active Robbie Busby MD Active KEFLEX 500 MG CAP 1 po TID x 10 days CEPHALEXIN 97948736313 No Longer Active Robbie Busby MD Active FIORICET 50-300-40 MG ORAL CAPS take 1 tab po qday prn migraines. [id number] 55794307484 Active Robbie Busby MD Active TOPIRAMATE 50 MG ORAL TABS take 1 tab po BID for migraines. TOPIRAMATE 73772979743 Active Robbie Busby MD Active HYDRALAZINE HCL 50 MG ORAL TABS TWO BY MOUTH THREE TIMES DAILY HYDRALAZINE HCL 77781069658 Active Robbie Busby MD Active MECLIZINE HCL 25 MG TAB one 4 times a day as needed for dizziness MECLIZINE HCL 93618825874 Active Robbie Busby MD Active TRILEPTAL 150 MG ORAL TABS 1 TAB PO Q HS OXCARBAZEPINE 67367457637 Active Robbie Busby MD Active TEMAZEPAM 15 MG ORAL CAPS 1 TAB PO Q HS TEMAZEPAM 89958900605 Active Robbie Busby MD Active ALPRAZOLAM 2 MG ORAL TABS 1 TAB PO BID ALPRAZOLAM 05430786094 Active Robbie Busby MD Active FENOFIBRATE 145 MG TABS Take one by mouth daily FENOFIBRATE 98707060748 No Longer Active Robbie Busby MD Active LAMISIL 125 MG ORAL PACK 1 TAB PO DAILY TERBINAFINE HCL 52650998117 Active Robbie Busby MD Active SPIRONOLACTONE 50 MG TABS 1 tablet by mouth twice a day SPIRONOLACTONE 73512343337 No Longer Active Robbie Busby MD Active HYDRALAZINE HCL 25 MG TABS 1 tablet by mouth tid for hypertension HYDRALAZINE HCL 81323142965 No Longer Active Robbie Busby MD Active VIIBRYD 40 MG TABS take 1 tab po qday for depression. VILAZODONE HCL 06827668986 No Longer Active Robbie Busby MD Active TERBINAFINE HCL 250 MG TABS 1 tab po qday for foot infection 2014 TERBINAFINE HCL 54874619687 No Longer Active Robbie Busby MD Active GABAPENTIN 300 MG CAPS 1 po q hs for nerve pain GABAPENTIN 80034266623 Active Robbie Busby MD Active FLONASE 50 MCG/ACT SUSP 1 spray each nostril twice daily for allergies and runny nose FLUTICASONE PROPIONATE 26572734121 Active Robbie Busby MD Active CHERATUSSIN AC 100-10 MG/5ML ORAL SOLN 7.5 mL PO q 4-6 hrs PRN cough GUAIFENESIN-CODEINE 98886879511 No Longer Active Robbie Busby MD Active AZITHROMYCIN 250 MG ORAL TABS 2 tablets PO today---then, 1 tablet PO daily x 4 more days (and 1 optional refill) AZITHROMYCIN 84177697622 No Longer Active Robbie Busby MD Active CLONIDINE HCL 0.2 MG ORAL TABS 1 TAB BY MOUTH EVERY 8 HOURS CLONIDINE HCL 31735002242 Active Robbie Busby MD Active HYDROCHLOROTHIAZIDE TABS Take one by mouth daily HYDROCHLOROTHIAZIDE TABS 32619040387 Active Alex ALVAREZ Active NORVASC 10 MG TAB 1 tablet by mouth daily AMLODIPINE BESYLATE 18592064662 No Longer Active Alex ALVAREZ Active IMDUR 60 MG TAB CR take 1 tab po qday for blood pressure ISOSORBIDE MONONITRATE Active Robbie Busby MD Active ISOSORBIDE DINITRATE 30 MG TABS Take one by mouth daily ISOSORBIDE DINITRATE 37827830172 No Longer Active Robbie Busby MD Active VIIBRYD 40 MG TABS 1 TA B PO DAILY VILAZODONE HCL 76385632666 Active Erin Garsia APRN Active LORATADINE 10 MG TABS 1 tablet by mouth daily for congestion and allergies. LORATADINE 96754063292 Active Robbie Busby MD Active ZITHROMAX 250 MG TAB 2 po today, then 1 po q days 2-5 AZITHROMYCIN 65895829080 No Longer Active Robbie Busby MD Active HYDROCODONE-ACETAMINOPHEN 5-325 MG TABS 1 tab by mouth BID prn back pain 2013 HYDROCODONE-ACETAMINOPHEN 48446557532 Active Robbie Busby MD Active [id number] 0.3 MG/24HR PTWK apply 2 patches q week for HTN CLONIDINE HCL 41150821615 Active Robbie Busby MD Active NITROSTAT 0.4 MG SUBL PRN NITROGLYCERIN 57403244976 Active Robbie Busby MD Active DOXAZOSIN MESYLATE 4 MG TABS Take one by mouth daily DOXAZOSIN MESYLATE 81182005743 Active Robbie Busby MD Active TOPROL XL 200 MG [id number] Take one by mouth daily METOPROLOL SUCCINATE 22313612383 Active Robbie Busby MD Active VENLAFAXINE HCL ER 150 MG [id number]-UHF Take one by mouth daily VENLAFAXINE HCL 15209179897 Active Robbie Busby MD Active LIPITOR 40 MG TABS Take one by mouth daily ATORVASTATIN CALCIUM 88490122320 Active Robbie Busby MD Active ISOSORBIDE DINITRATE 30 MG TABS Take one by mouth daily ISOSORBIDE DINITRATE 30 MG TABS 771407 ISOSORBIDE DINITRATE Inactive NORVASC 10 MG TAB 1 tablet by mouth daily NORVASC 10 MG TAB 416702 AMLODIPINE BESYLATE Inactive AZITHROMYCIN 250 MG ORAL TABS 2 tablets PO today---then, 1 tablet PO daily x 4 more days (and 1 optional refill) AZITHROMYCIN 250 MG ORAL TABS 1966372 AZITHROMYCIN Inactive CHERATUSSIN AC 100-10 MG/5ML ORAL SOLN 7.5 mL PO q 4-6 hrs PRN cough CHERATUSSIN AC 100-10 MG/5ML ORAL SOLN 429571 GUAIFENESIN- CODEINE Inactive VIIBRYD 40 MG TABS take 1 tab po qday for depression. VIIBRYD 40 MG TABS VILAZODONE HCL Inactive HYDRALAZINE HCL 25 MG TABS 1 tablet by mouth tid for hypertension HYDRALAZINE HCL 25 MG TABS 416118 HYDRALAZINE HCL Inactive SPIRONOLACTONE 50 MG TABS 1 tablet by mouth twice a day SPIRONOLACTONE 50 MG TABS 200842 SPIRONOLACTONE Inactive FENOFIBRATE 145 MG TABS Take one by mouth daily FENOFIBRATE 145 MG TABS 877898 FENOFIBRATE Inactive PROTONIX 40 MG SOLR 1 po qday for acid reflux PROTONIX 40 MG SOLR 005240 PANTOPRAZOLE SODIUM Inactive CEFDINIR 300 MG ORAL CAPS Take 1 cap po bid x 10 days CEFDINIR 300 MG ORAL CAPS 672144 CEFDINIR Inactive PREDNISONE 20 MG TAB 1 tablet twice daily for 2 days, then 1 tablet once daily for 2 days PREDNISONE 20 MG TAB 064327 PREDNISONE Inactive ZITHROMAX 250 MG TAB 2 po today, then 1 po q days 2-5 ZITHROMAX 250 MG TAB 4970798 AZITHROMYCIN Inactive TERBINAFINE HCL 250 MG TABS 1 tab po qday for foot infection 2014 TERBINAFINE HCL 250 MG TABS 318717 TERBINAFINE HCL Inactive KEFLEX 500 MG CAP 1 po TID x 10 days KEFLEX 500 MG CAP 209988 CEPHALEXIN Inactive Vital Signs Date Name Value [...] Acid - Chemistry sodium, serum 139 mmol/L 268-273 4686/04/22 carbon dioxide, venous blood 29.4 mmol/L 21.0-32.0 [...] PANEL - Chemistry cholesterol, serum 211 mg/dL 131-587 7768/08/31 triglyceride, serum, fasting 429 mg/dL 30-200 HDL [...] to Follow Negative Lab Report: VITAMIN D, 25-HYDROXY/99389 - Chemistry vitamin D 25-hydroxy, serum 23 ng/mL 30-100 Encounters Code Encounter Date Provider Facility CPT-87986 Level 4 Est. Patient 22:55:17 CDT Robbie Busby MD [facility] CPT-36055 Level 3 Est. Patient 12:38:24 CDT Desmond Diaz DO [facility] CPT-37876 Level 4 Est. 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 CPT-59505 Level 4 Est. Patient 14:50:10 CDT Robbie Busby MD [facility] CPT-00387 Level 4 Est. Patient 23:30:43 CDT Robbie Busby MD [facility] CPT-21104 Level 4 Est. Patient 10:30:43 CDT Robbie Busby MD [facility] CPT-02851 Level 3 Est. Patient 17:08:[address] [facility] CPT-73827 Level 4 Est. Patient 17:51:38 CDT Robbie Busby MD [facility] CPT-76100 Level 4 Est. Patient 14:00:21 CDT Robbie Busby MD [facility] CPT-00284 Level 4 Est. Patient 12:46:48 CDT Robbie Busby MD [facility] CPT-04282 Level 4 Est. Patient 13:34:33 CDT Robbie Busby MD [facility] CPT-60174 Level 4 Est. Patient 16:58:28 CDT Robbie Busby MD [facility] CPT-23641 Level 3 Est. Patient 19:36:[address] [facility] CPT-16310 Level 3 Est. Patient 12:58:15 CDT Robbie Busby MD [facility] Procedures Code Procedure Name Date Entry Date Standard Description CPT-74587 Venipuncture Draw Fee 13:07:17 CDT CPT-G0008 Administration of Influenza Virus Vaccine 16:09:59 CDT CPT-62289 Fluzone Quadrivalent Intramuscular Suspension 0.5 ML 16: 09:59 CDT CPT-84003 Spec Collection and Handling Fee 15:05:50 CDT
--- OUTSIDE RECORDS SUMMARY | 2018-04-18 15:13 | XMS REPORT | Clinical Summary ---
Author Author Admin, [facility] Organization [facility] Address Unknown Phone Unavailable Allergies, Adverse Reactions, [...] Name NDC Status Provider Patient Instruction NYSTATIN 159814 UNIT/ML M/T SUSP 5mL po QID x 10 days NYSTATIN [id number] No Longer Active Erin Garsia APRN Active PREDNISONE 20 MG TAB 1 tablet twice daily for 2 days, then 1 tablet once daily for 2 days PREDNISONE 19390772222 No Longer Active Robbie Busby MD Active CEFDINIR 300 MG ORAL CAPS Take 1 cap po bid x 10 days CEFDINIR 95023806405 No Longer Active Robbie Busby MD Active AMLODIPINE BESYLATE 10 MG TABS 1 tablet by mouth daily AMLODIPINE BESYLATE 76429038612 Active Robbie Busby MD Active CARVEDILOL 25 MG TABS 1 & 1/2 TAB po BID CARVEDILOL 98070082122 Active Robbie Busby MD Active VITAMIN D3 12070 UNIT CAPS 2 CAPS PO WEEKLY CHOLECALCIFEROL 94763296887 Active Erin Garsia [employer] MA[employer]GER Active NEXIUM 40 MG CPDR 1 cap by mouth daily ESOMEPRAZOLE MAGNESIUM 14857743652 Active Gali Raida Active PROTONIX 40 MG SOLR 1 po qday for acid reflux PANTOPRAZOLE SODIUM 87400405874 No Longer Active Gali Rajuan carlos Active BETADINE 10 % EXT SOLN wash with 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 [id number]-LYNS-[id number] 09266451164 Active Robbie Busby MD Active TOPIRAMATE 50 MG ORAL TABS take 1 tab po BID for migraines. TOPIRAMATE 09833247197 Active Robbie Busby MD Active HYDRALAZINE HCL 50 MG ORAL TABS TWO BY MOUTH THREE TIMES DAILY HYDRALAZINE HCL 93833655890 Active Robbie Busby MD Active MECLIZINE HCL 25 MG TAB one 4 times a day as needed for dizziness MECLIZINE HCL 11915802919 Active Robbie Busby MD Active TRILEPTAL 150 MG ORAL TABS 1 TAB PO Q HS OXCARBAZEPINE 33421171617 Active Robbie Busby MD Active TEMAZEPAM 15 MG ORAL CAPS 1 TAB PO Q HS TEMAZEPAM 73341902565 Active Robbie Busby MD Active ALPRAZOLAM 2 MG ORAL TABS 1 TAB PO BID ALPRAZOLAM 20259615432 Active Robbie Busby MD Active FENOFIBRATE 145 MG TABS Take one by mouth daily FENOFIBRATE 69670398741 No Longer Active Robbie Busby MD Active LAMISIL 125 MG ORAL PACK 1 TAB PO DAILY TERBINAFINE HCL 10642379168 Active Robbie Busby MD Active SPIRONOLACTONE 50 MG TABS 1 tablet by mouth twice a day SPIRONOLACTONE 07610183428 No Longer Active Robbie Busby MD Active HYDRALAZINE HCL 25 MG TABS 1 tablet by mouth tid for hypertension HYDRALAZINE HCL 09787700093 No Longer Active Robbie Busby MD Active VIIBRYD 40 MG TABS take 1 tab po qday for depression. VILAZODONE HCL 42038500400 No Longer Active Robbie Busby MD Active TERBINAFINE HCL 250 MG TABS 1 tab po qday for foot infection 2014 TERBINAFINE HCL 26022408539 No Longer Active Robbie Busby MD Active GABAPENTIN 300 MG CAPS 1 po q hs for nerve pain GABAPENTIN 41310267687 Active Robbie Busby MD Active FLONASE 50 MCG/ACT SUSP 1 spray each nostril twice daily for allergies and runny nose FLUTICASONE PROPIONATE 70986935414 Active Robbie Busby MD Active CHERATUSSIN AC 100-10 MG/5ML ORAL SOLN 7.5 mL PO q 4-6 hrs PRN cough GUAIFENESIN-CODEINE 56328556668 No Longer Active Robbie Busby MD Active AZITHROMYCIN 250 MG ORAL TABS 2 tablets PO today---then, 1 tablet PO daily x 4 more days (and 1 optional refill) AZITHROMYCIN 55811506438 No Longer Active Robbie Busby MD Active CLONIDINE HCL 0.2 MG ORAL TABS 1 TAB BY MOUTH EVERY 8 HOURS CLONIDINE HCL 47241560342 Active Robbie Busby MD Active HYDROCHLOROTHIAZIDE TABS Take one by mouth daily HYDROCHLOROTHIAZIDE TABS 94397096658 Active Alex ALVAREZ Active NORVASC 10 MG TAB 1 tablet by mouth daily AMLODIPINE BESYLATE 63821104827 No Longer Active Alex ALVAREZ Active IMDUR 60 MG TAB CR take 1 tab po qday for blood pressure ISOSORBIDE MONONITRATE Active Robbie Busby MD Active ISOSORBIDE DINITRATE 30 MG TABS Take one by mouth daily ISOSORBIDE DINITRATE 73953385485 No Longer Active Robbie Busby MD Active VIIBRYD 40 MG TABS 1 TA B PO DAILY VILAZODONE HCL 72834203171 Active Robbie Busby MD Active LORATADINE 10 MG TABS 1 tablet by mouth daily for congestion and allergies. LORATADINE 25768826853 Active Robbie uBsby MD Active ZITHROMAX 250 MG TAB 2 po today, then 1 po q days 2-5 AZITHROMYCIN 23024127504 No Longer Active Robbie Busby MD Active HYDROCODONE-ACETAMINOPHEN 5-325 MG TABS 1 tab by mouth BID prn back pain 2013 HYDROCODONE-ACETAMINOPHEN 66483914009 Active Robbie Busby MD Active YPRSIECX-DIZ-7 0.3 MG/24HR PTWK apply 2 patches q week for HTN CLONIDINE HCL 37243403261 Active Robbie Busby MD Active NITROSTAT 0.4 MG SUBL PRN NITROGLYCERIN 58733673822 Active Robbie Busby MD Active DOXAZOSIN MESYLATE 4 MG TABS Take one by mouth daily DOXAZOSIN MESYLATE 99888930916 Active Robbie Busby MD Active TOPROL XL 200 MG DE63O-ZTL Take one by mouth daily METOPROLOL SUCCINATE 01498833268 Active Robbie Busby MD Active VENLAFAXINE HCL ER 150 MG BL87D-PQC Take one by mouth daily VENLAFAXINE HCL 57801784183 Active Robbie Busby MD Active LIPITOR 40 MG TABS Take one by mouth daily ATORVASTATIN CALCIUM 28570920227 Active Robbie Busby MD Active ISOSORBIDE DINITRATE 30 MG TABS Take one by mouth daily ISOSORBIDE DINITRATE 30 MG TABS 844144 ISOSORBIDE DINITRATE Inactive NORVASC 10 MG TAB 1 tablet by mouth daily NORVASC 10 MG TAB 697552 AMLODIPINE BESYLATE Inactive AZITHROMYCIN 250 MG ORAL TABS 2 tablets PO today---then, 1 tablet PO daily x 4 more days (and 1 optional refill) AZITHROMYCIN 250 MG ORAL TABS 0139166 AZITHROMYCIN Inactive CHERATUSSIN AC 100-10 MG/5ML ORAL SOLN 7.5 mL PO q 4-6 hrs PRN cough CHERATUSSIN AC 100-10 MG/5ML ORAL SOLN 508088 GUAIFENESIN- CODEINE Inactive VIIBRYD 40 MG TABS take 1 tab po qday for depression. VIIBRYD 40 MG TABS VILAZODONE HCL Inactive HYDRALAZINE HCL 25 MG TABS 1 tablet by mouth tid for hypertension HYDRALAZINE HCL 25 MG TABS 764404 HYDRALAZINE HCL Inactive SPIRONOLACTONE 50 MG TABS 1 tablet by mouth twice a day SPIRONOLACTONE 50 MG TABS 562409 SPIRONOLACTONE Inactive FENOFIBRATE 145 MG TABS Take one by mouth daily FENOFIBRATE 145 MG TABS 720121 FENOFIBRATE Inactive PROTONIX 40 MG SOLR 1 po qday for acid reflux PROTONIX 40 MG SOLR 161439 PANTOPRAZOLE SODIUM Inactive CEFDINIR 300 MG ORAL CAPS Take 1 cap po bid x 10 days CEFDINIR 300 MG ORAL CAPS 139187 CEFDINIR Inactive PREDNISONE 20 MG TAB 1 tablet twice daily for 2 days, then 1 tablet once daily for 2 days PREDNISONE 20 MG TAB 699910 PREDNISONE Inactive NYSTATIN 477039 UNIT/ML M/T SUSP 5mL po QID x 10 days NYSTATIN 034107 UNIT/ML M/T SUSP 460770 NYSTATIN Inactive ZITHROMAX 250 MG TAB 2 po today, then 1 po q days 2-5 ZITHROMAX 250 MG TAB 4196688 AZITHROMYCIN Inactive TERBINAFINE HCL 250 MG TABS 1 tab po qday for foot infection 2014 TERBINAFINE HCL 250 MG TABS 798746 TERBINAFINE HCL Inactive KEFLEX 500 MG CAP 1 po TID x 10 days KEFLEX 500 MG CAP 217486 CEPHALEXIN Inactive Advance Directives Directive Description Start [...] Acid - Chemistry sodium, serum 139 mmol/L 119-034 7005/04/22 carbon dioxide, venous blood 29.4 mmol/L 21.0-32.0 [...] to Follow Negative Lab Report: VITAMIN D, 25-HYDROXY/31805 - Chemistry vitamin D 25-hydroxy, serum 23 ng/mL 30-100 Encounters Code Encounter Date Provider Facility CPT-36185 Level 4 Est. Patient 22:55:17 CDT Robbie Busby MD [facility] CPT-84414 Level 3 Est. Patient 12:38:24 CDT Desmond Diaz DO [facility] CPT-57717 Level 4 Est. 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 Patient 14:50:10 CDT Robbie Busby MD [facility] CPT-91261 Level 4 Est. Patient 23:30:43 CDT Robibe Busby MD [facility] CPT-77442 Level 4 Est. Patient 10:30:43 CDT Robbie Busby MD [facility] CPT-65325 Level 3 Est. Patient 17:08:12 CDT Alex ALVAREZ [facility] CPT-07259 Level 4 Est. Patient 17:51:38 CDT Robbie Busby MD [facility] CPT-69379 Level 4 Est. Patient 14:00:21 CDT Robbie Busby MD [facility] CPT-81368 Level 4 Est. Patient 12:46:48 CDT Robbie Busby MD [facility] CPT-88876 Level 4 Est. Patient 13:34:33 CDT Robbie Busby MD [facility] CPT-63481 Level 4 Est. Patient 16:58:28 CDT Robbie Busby MD [facility] CPT-20102 Level 3 Est. Patient 19:36:53 CDT Alex Shaw [facility] CPT-62073 Level 3 Est. Patient 12:58:15 CDT Robbie Busby MD [facility] Procedures Code Procedure Name Date Entry Date Standard Description CPT-09521 Venipuncture Draw Fee 15:20:23 CDT CPT-67966 Microalbumin - LAB USE ONLY 16:02:19 CDT CPT-11605 CBC - LAB USE ONLY 16:02:19 CDT CPT-16475 Venipuncture Draw Fee 16:02:19 CDT CPT-G0438 Initial Annual Wellness Exam 08:10:28 CDT CPT-45106 Venipuncture Draw Fee 13:07:17 CDT CPT-G0008 Administration of Influenza Virus Vaccine 16:09:59 CDT CPT-86797 Fluzone Quadrivalent Intramuscular Suspension 0.5 ML 16: 09:59 CDT CPT-62196 Spec Collection and Handling Fee 15:05:50 CDT
--- OUTSIDE RECORDS SUMMARY | 2018-04-18 15:13 | XMS REPORT | Clinical Summary ---
Author Author Admin, [facility] Organization [facility] Address Unknown Phone Unavailable Allergies, Adverse [...] for allergies and runny nose FLUTICASONE PROPIONATE 17891861128 Active Robbie Busby MD Active CHERATUSSIN AC 100-10 MG/5ML ORAL SOLN 7.5 mL PO q 4-6 hrs PRN cough GUAIFENESIN-CODEINE 49352692685 No Longer Active Robbie Busby MD Active AZITHROMYCIN 250 MG ORAL TABS 2 tablets PO today---then, 1 tablet PO daily x 4 more days (and 1 optional refill) AZITHROMYCIN 69178497256 No Longer Active Robbie Busby MD Active CLONIDINE HCL 0.2 MG ORAL TABS 1 TAB BY MOUTH EVERY 8 HOURS CLONIDINE HCL 46143204519 Active Robbie Busby MD Active HYDROCHLOROTHIAZIDE TABS Take one by mouth daily HYDROCHLOROTHIAZIDE TABS 88278921141 Active Alex ALVAREZ Active NORVASC 10 MG TAB 1 tablet by mouth daily AMLODIPINE BESYLATE 52158581538 No Longer Active Alex ALVAREZ Active PROTONIX 40 MG SOLR 1 po qday for acid reflux PANTOPRAZOLE SODIUM 54373906721 Active Robbie Busby MD Active IMDUR 60 MG TAB CR take 1 tab po qday for blood pressure ISOSORBIDE MONONITRATE Active Robbie Busby MD Active ISOSORBIDE DINITRATE 30 MG TABS Take one by mouth daily ISOSORBIDE DINITRATE 99638902542 No Longer Active Robbie Busby MD Active VIIBRYD 40 MG TABS take 1 tab po qday for depression. VILAZODONE HCL 22893228820 Active Robbie Busby MD Active VIIBRYD 40 MG TABS 1 TA B PO DAILY VILAZODONE HCL 81180140526 Active Robbie Busby MD Active LORATADINE 10 MG TABS 1 tablet by mouth daily for congestion and allergies. LORATADINE 28966158784 Active Robbie Busby MD Active ZITHROMAX 250 MG TAB 2 po today, then 1 po q days 2-5 AZITHROMYCIN 55129697877 No Longer Active Robbie Busby MD Active HYDROCODONE-ACETAMINOPHEN 5-325 MG TABS 1 tab by mouth BID prn back pain 2013 HYDROCODONE-ACETAMINOPHEN 26271867690 Active Robbie Busby MD Active HYDRALAZINE HCL 50 MG TABS take 1 tab po QID for high blood pressure HYDRALAZINE HCL 39688084056 Active Robbie Busby MD Active [id number]-2 0.3 MG/24HR PTWK apply 2 patches q week for HTN CLONIDINE HCL 78150361951 Active Robbie Busby MD Active FENOFIBRATE 145 MG TABS Take one by mouth daily FENOFIBRATE 48226786799 Active Robbie Busby MD Active NITROSTAT 0.4 MG SUBL PRN NITROGLYCERIN 68438855740 Active Robbie Busby MD Active DOXAZOSIN MESYLATE 4 MG TABS Take one by mouth daily DOXAZOSIN MESYLATE 54661470694 Active Robbie Busby MD Active HYDRALAZINE HCL 25 MG TABS 1 tablet by mouth tid for hypertension HYDRALAZINE HCL 75298563669 Active Robbie Busby MD Active TOPROL XL 200 MG [id number] Take one by mouth daily METOPROLOL SUCCINATE 43977604710 Active Robbie Busby MD Active SPIRONOLACTONE 50 MG TABS 1 tablet by mouth twice a day SPIRONOLACTONE 85454651337 Active Robbie Busby MD Active VENLAFAXINE HCL ER 150 MG [id number] Take one by mouth daily VENLAFAXINE HCL 07437006869 Active Robbie Busby MD Active LIPITOR 40 MG TABS Take one by mouth daily ATORVASTATIN CALCIUM 11950082629 Active Robbie Busby MD Active ISOSORBIDE DINITRATE 30 MG TABS Take one by mouth daily ISOSORBIDE DINITRATE 30 MG TABS 514499 ISOSORBIDE DINITRATE Inactive NORVASC 10 MG TAB 1 tablet by mouth daily NORVASC 10 MG TAB 275548 AMLODIPINE BESYLATE Inactive AZITHROMYCIN 250 MG ORAL TABS 2 tablets PO today---then, 1 tablet PO daily x 4 more days (and 1 optional refill) AZITHROMYCIN 250 MG ORAL TABS 5453435 AZITHROMYCIN Inactive CHERATUSSIN AC 100-10 MG/5ML ORAL SOLN 7.5 mL PO q 4-6 hrs PRN cough CHERATUSSIN AC 100-10 MG/5ML ORAL SOLN 256227 GUAIFENESIN- CODEINE Inactive ZITHROMAX 250 MG TAB 2 po today, then 1 po q days 2-5 ZITHROMAX 250 MG TAB 8750708 AZITHROMYCIN Inactive Vital Signs Date Name Value [...] 0.80 mg/dL 0.00-1.00 sodium, serum 141 mmol/L 659-004 0177/12/05 potassium, serum 4.0 mmol/L 3.5-5.2 chloride, serum [...] mg/dL Encounters Code Encounter Date Provider Facility CPT-91165 Level 4 Est. Patient 10:30:43 CDT Robbie Busby MD [facility] CPT-72659 Level 3 Est. Patient 17:08:12 CDT Alex Shaw [facility] CPT-46803 Level 4 Est. Patient 17:51:38 CDT Robbie Busby MD [facility] CPT-64701 Level 4 Est. Patient 14:00:21 CDT Robbie Busby MD [facility] CPT-19652 Level 4 Est. Patient 12:46:48 CDT Robbie Busby MD [facility] CPT-19607 Level 4 Est. Patient 13:34:33 CDT Robbie Busby MD [facility] CPT-54471 Level 4 Est. Patient 16:58:28 CDT Robbie Busby MD [facility] CPT-53250 Level 3 Est. Patient 19:36:53 CDT Alex Shaw [facility] CPT-79081 Level 3 Est. Patient 12:58:15 CDT Robbie Busby MD [facility] Procedures Code Procedure Name Date Entry Date Standard Description CPT-G0008 Administration of Influenza Virus Vaccine 16:09:59 CDT CPT-20623 Fluzone Quadrivalent Intramuscular Suspension 0.5 ML 16: 09:59 CDT CPT-77731 Spec Collection and Handling Fee 15:05:50 CDT
--- OUTSIDE RECORDS SUMMARY | 2018-04-18 15:14 | XMS REPORT | Clinical Summary ---
Author Author Admin, AKUA Organization [employer] Address Unknown Phone Unavailable Allergies, Adverse Reactions, [...] unspecified sites URI 465.9 Active Rober Rodríguez [employer] ATTENDANT Acute upper respiratory infections of unspecified site [...] Status Provider Patient Instruction GUAIFENESIN 600 MG [id number] 1 tab po q am GUAIFENESIN 43046333441 No Longer Active Robbie Busby MD Active DIVALPROEX SODIUM ER 500 MG ORAL TABLET EXTENDED RELEASE 24 HOUR Once daily DIVALPROEX SODIUM 90665856858 Active Robbie Busby MD Active DEPO-TESTOSTERONE 200 MG/ML IM SOLN 1 IM Injections every 2 weeks for low testosterone TESTOSTERONE CYPIONATE 77486441552 Active Zulema Blank LPN Active CYCLOBENZAPRINE HCL 10 MG ORAL TABS 1 po TID PRN muscle spasm/pain for 10 days CYCLOBENZAPRINE HCL 81787817018 Active JONATHAN Moncdaa Active FLUTICASONE PROPIONATE 50 MCG/ACT SUSP 2 sprays per nostril bid for 1 week, then 1 spray bid FLUTICASONE PROPIONATE 78439664812 Active Jillina Franeha [employer]END[employer] Active HYDRALAZINE HCL 25 MG ORAL TABS Take 1 tab BID. HYDRALAZINE HCL 60044671355 Active Jillina Anne [employer] SERVICES ATTENDANT Active VITAMIN D3 10483 UNIT ORAL TABS 2 po weekly CHOLECALCIFEROL 32530925314 Active Robbie Busby MD Active OXYCODONE HCL ER 10 MG ORAL T12A 1 tab po 3 times qd. OXYCODONE HCL 16700393237 Active Robbie Busby MD Active NITROSTAT 0.4 MG SUBL PRN NITROGLYCERIN 74919027542 No Longer Active Robbie Busby MD Active LORATADINE 10 MG TABS 1 tablet by mouth daily for congestion and allergies. LORATADINE 09827357446 No Longer Active Robbie Busby MD Active FLONASE 50 MCG/ACT SUSP 1 spray each nostril twice daily for allergies and runny nose FLUTICASONE PROPIONATE 50513215375 No Longer Active Robbie Busby MD Active FIORICET 50-300-40 MG ORAL CAPS take 1 tab po qday prn migraines. [id number] 97070107299 No Longer Active Robbie Busby MD Active VITAMIN D3 06355 UNIT CAPS 2 CAPS PO WEEKLY CHOLECALCIFEROL 91718625964 No Longer Active Robbie Busby MD Active CYCLOBENZAPRINE HCL 10 MG TABS 1 tablet by mouth three times daily as needed for muscle spasm/pain for 10 days CYCLOBENZAPRINE HCL 19433791403 No Longer Active Robbie Busby MD Active PREDNISONE 20 MG TAB take 3 tabs daily for 3 days, 2 tabs daily for 3 days, 1 tab daily for 3 days, 1/2 tab daily for 4 days PREDNISONE 11765314070 No Longer Active Erin Garsia APRN Active CLONIDINE HCL 0.2 MG ORAL TABS 1 TAB BY MOUTH EVERY 8 HOURS 12/29 CLONIDINE HCL 88462361540 No Longer Active Erin Garsia APRN Active MECLIZINE HCL 25 MG TAB one 4 times a day as needed for dizziness MECLIZINE HCL 40384506583 No Longer Active Erin Garsia APRN Active SPIRONOLACTONE 25 MG TAB 4 tablets by mouth daily SPIRONOLACTONE 15100555300 No Longer Active Erin Garsia APRN Active LEVAQUIN 500 MG TAB 1 tablet by mouth daily for 7 days LEVOFLOXACIN 72912561765 No Longer Active Erin Garsia APRN Active BACTRIM DS 800-160 MG TAB 1 tab by mouth twice daily TRIMETHOPRIM-SULFAMETHOXAZOLE 38948996674 No Longer Active Robbie Busby MD Active HYDRALAZINE HCL 50 MG ORAL TABS TWO BY MOUTH THREE TIMES DAILY HYDRALAZINE HCL 20559999264 No Longer Active Jillld Rodríguez APRN Active HYDROCODONE-ACETAMINOPHEN 5-325 MG TABS 1 tab by mouth BID prn back pain 2013 HYDROCODONE-ACETAMINOPHEN 73064667261 No Longer Active Jillina Zulemal [employer] ATTENDANT Active HYDROCHLOROTHIAZIDE TABS Take one by mouth daily HYDROCHLOROTHIAZIDE TABS 35388045215 No Longer Active Jillina Frakierstenl [employer] SERVICES ATTENDANT Active LAMISIL 125 MG ORAL PACK 1 TAB PO DAILY TERBINAFINE HCL 41325757605 No Longer Active Jillina Frakierstenl [employer] SERVICES ATTENDANT Active TRILEPTAL 150 MG ORAL TABS 1 TAB PO Q HS OXCARBAZEPINE 44026960100 No Longer Active Jillina Frakierstenl [employer] SERVICES ATTENDANT Active BETADINE 10 % EXT SOLN wash with solution to treat follicultis POVIDONE-IODINE 44469497819 No Longer Active Rboer Rodríguez APRN Active NYSTATIN 465080 UNIT/ML M/T SUSP 5mL po QID x 10 days NYSTATIN 13124603981 No Longer Active Erin Garsia APRN Active PREDNISONE 20 MG TAB 1 tablet twice daily for 2 days, then 1 tablet once daily for 2 days PREDNISONE 48770809937 No Longer Active Robbie Busby MD Active CEFDINIR 300 MG ORAL CAPS Take 1 cap po bid x 10 days CEFDINIR 61889161041 No Longer Active Robbie Busby MD Active AMLODIPINE BESYLATE 10 MG TABS 1 tablet by mouth daily AMLODIPINE BESYLATE 55044532898 Active Robbie Busby MD Active CARVEDILOL 25 MG TABS 1 & 1/2 TAB po BID CARVEDILOL 90596596664 Active Robbie Busby MD Active NEXIUM 40 MG CPDR 1 cap by mouth daily ESOMEPRAZOLE MAGNESIUM 60231114976 Active Robbie Busby MD Active PROTONIX 40 MG SOLR 1 po qday for acid reflux PANTOPRAZOLE SODIUM 07916893693 No Longer Active Gali Raida Active KEFLEX 500 MG CAP 1 po TID x 10 days CEPHALEXIN 94536792052 No Longer Active Robbie Busby MD Active TOPIRAMATE 50 MG ORAL TABS take 1 tab po BID for migraines. TOPIRAMATE 95019827243 Active Robbie Busby MD Active TEMAZEPAM 15 MG ORAL CAPS 1 TAB PO Q HS TEMAZEPAM 50759883065 Active Robbie Busby MD Active ALPRAZOLAM 2 MG ORAL TABS 1 TAB PO BID ALPRAZOLAM 53511266516 Active Robbie Busby MD Active FENOFIBRATE 145 MG TABS Take one by mouth daily FENOFIBRATE 04786220857 No Longer Active Robbie Busby MD Active SPIRONOLACTONE 50 MG TABS 1 tablet by mouth twice a day SPIRONOLACTONE 32790235569 No Longer Active Robbie Busby MD Active HYDRALAZINE HCL 25 MG TABS 1 tablet by mouth tid for hypertension HYDRALAZINE HCL 10511584542 No Longer Active Robbie Busby MD Active VIIBRYD 40 MG TABS take 1 tab po qday for depression. VILAZODONE HCL 64751150367 No Longer Active Robbie Busby MD Active TERBINAFINE HCL 250 MG TABS 1 tab po qday for foot infection 2014 TERBINAFINE HCL 22400602369 No Longer Active Robbie Busby MD Active GABAPENTIN 300 MG CAPS 1 po q hs for nerve pain GABAPENTIN 92949674446 Active Robbie Busby MD Active CHERATUSSIN AC 100-10 MG/5ML ORAL SOLN 7.5 mL PO q 4-6 hrs PRN cough GUAIFENESIN-CODEINE 31488205592 No Longer Active Robbie Busby MD Active AZITHROMYCIN 250 MG ORAL TABS 2 tablets PO today---then, 1 tablet PO daily x 4 more days (and 1 optional refill) AZITHROMYCIN 97112456228 No Longer Active Robbie Busby MD Active NORVASC 10 MG TAB 1 tablet by mouth daily AMLODIPINE BESYLATE 68398826579 No Longer Active Alex ALVAREZ Active IMDUR 60 MG TAB CR take 1 tab po qday for blood pressure ISOSORBIDE MONONITRATE Active Robbie Busby MD Active ISOSORBIDE DINITRATE 30 MG TABS Take one by mouth daily ISOSORBIDE DINITRATE 53774582882 No Longer Active Robbie Busby MD Active VIIBRYD 40 MG TABS 1 TA B PO DAILY VILAZODONE HCL 90019554622 Active Robbie Busby MD Active ZITHROMAX 250 MG TAB 2 po today, then 1 po q days 2-5 AZITHROMYCIN 59346595297 No Longer Active Robbie Busby MD Active [id number]-4 0.3 MG/24HR PTWK apply 2 patches q week for HTN CLONIDINE HCL 70145131797 Active Robbie Busby MD Active DOXAZOSIN MESYLATE 4 MG TABS Take one by mouth daily DOXAZOSIN MESYLATE 16936042645 Active Robbie Busby MD Active TOPROL XL 200 MG [id number] Take one by mouth daily METOPROLOL SUCCINATE 17451199503 Active Robbie Busby MD Active VENLAFAXINE HCL ER 150 MG [id number] Take one by mouth daily VENLAFAXINE HCL 52922723587 Active Robbie Busby MD Active LIPITOR 40 MG TABS Take one by mouth daily ATORVASTATIN CALCIUM 99248617371 Active Robbie Busby MD Active ISOSORBIDE DINITRATE 30 MG TABS Take one by mouth daily ISOSORBIDE DINITRATE 30 MG TABS 305030 ISOSORBIDE DINITRATE Inactive NORVASC 10 MG TAB 1 tablet by mouth daily NORVASC 10 MG TAB 860337 AMLODIPINE BESYLATE Inactive AZITHROMYCIN 250 MG ORAL TABS 2 tablets PO today---then, 1 tablet PO daily x 4 more days (and 1 optional refill) AZITHROMYCIN 250 MG ORAL TABS 898943 AZITHROMYCIN Inactive CHERATUSSIN AC 100-10 MG/5ML ORAL SOLN 7.5 mL PO q 4-6 hrs PRN cough CHERATUSSIN AC 100-10 MG/5ML ORAL SOLN 929645 GUAIFENESIN- CODEINE Inactive VIIBRYD 40 MG TABS take 1 tab po qday for depression. VIIBRYD 40 MG TABS VILAZODONE HCL Inactive HYDRALAZINE HCL 25 MG TABS 1 tablet by mouth tid for hypertension HYDRALAZINE HCL 25 MG TABS 226595 HYDRALAZINE HCL Inactive SPIRONOLACTONE 50 MG TABS 1 tablet by mouth twice a day SPIRONOLACTONE 50 MG TABS 737844 SPIRONOLACTONE Inactive FENOFIBRATE 145 MG TABS Take one by mouth daily FENOFIBRATE 145 MG TABS 126999 FENOFIBRATE Inactive PROTONIX 40 MG SOLR 1 po qday for acid reflux PROTONIX 40 MG SOLR 688387 PANTOPRAZOLE SODIUM Inactive CEFDINIR 300 MG ORAL CAPS Take 1 cap po bid x 10 days CEFDINIR 300 MG ORAL CAPS 362158 CEFDINIR Inactive PREDNISONE 20 MG TAB 1 tablet twice daily for 2 days, then 1 tablet once daily for 2 days PREDNISONE 20 MG TAB 046147 PREDNISONE Inactive NYSTATIN 981128 UNIT/ML M/T SUSP 5mL po QID x 10 days NYSTATIN 380457 UNIT/ML M/T SUSP 620905 NYSTATIN Inactive BETADINE 10 % EXT SOLN wash with solution to treat follicultis BETADINE 10 % EXT SOLN 8410057 POVIDONE-IODINE Inactive TRILEPTAL 150 MG ORAL TABS 1 TAB PO Q HS TRILEPTAL 150 MG ORAL TABS 369508 OXCARBAZEPINE Inactive LAMISIL 125 MG ORAL PACK 1 TAB PO DAILY LAMISIL 125 MG ORAL PACK TERBINAFINE HCL Inactive HYDROCHLOROTHIAZIDE TABS Take one by mouth daily HYDROCHLOROTHIAZIDE TABS HYDROCHLOROTHIAZIDE TABS Inactive HYDROCODONE-ACETAMINOPHEN 5-325 MG TABS 1 tab by mouth BID prn back pain 2013 HYDROCODONE-ACETAMINOPHEN 5-325 MG TABS 576437 HYDROCODONE -ACETAMINOPHEN Inactive HYDRALAZINE HCL 50 MG ORAL TABS TWO BY MOUTH THREE TIMES DAILY HYDRALAZINE HCL 50 MG ORAL TABS 790866 HYDRALAZINE HCL Inactive LEVAQUIN 500 MG TAB 1 tablet by mouth daily for 7 days LEVAQUIN 500 MG TAB 276849 LEVOFLOXACIN Inactive SPIRONOLACTONE 25 MG TAB 4 tablets by mouth daily SPIRONOLACTONE 25 MG TAB 464738 SPIRONOLACTONE Inactive MECLIZINE HCL 25 MG TAB one 4 times a day as needed for dizziness MECLIZINE HCL 25 MG TAB 209377 MECLIZINE HCL Inactive CLONIDINE HCL 0.2 MG ORAL TABS 1 TAB BY MOUTH EVERY 8 HOURS 12/29 CLONIDINE HCL 0.2 MG ORAL TABS 508058 CLONIDINE HCL Inactive CYCLOBENZAPRINE HCL 10 MG TABS 1 tablet by mouth three times daily as needed for muscle spasm/pain for 10 days CYCLOBENZAPRINE HCL 10 MG TABS 831879 CYCLOBENZAPRINE HCL Inactive VITAMIN D3 47946 UNIT CAPS 2 CAPS PO WEEKLY VITAMIN D3 74998 UNIT CAPS CHOLECALCIFEROL Inactive FIORICET 50-300-40 MG ORAL CAPS take 1 tab po qday prn migraines. FIORICET 50-300-40 MG ORAL CAPS 936810 [id number] Inactive FLONASE 50 MCG/ACT SUSP 1 spray each nostril twice daily for allergies and runny nose FLONASE 50 MCG/ACT SUSP 5084053 FLUTICASONE PROPIONATE Inactive LORATADINE 10 MG TABS 1 tablet by mouth daily for congestion and allergies. LORATADINE 10 MG TABS 773250 LORATADINE Inactive NITROSTAT 0.4 MG SUBL PRN NITROSTAT 0.4 MG SUBL 203192 NITROGLYCERIN Inactive GUAIFENESIN 600 MG [id number] 1 tab po q am GUAIFENESIN 600 MG [id number] GUAIFENESIN Inactive ZITHROMAX 250 MG TAB 2 po today, then 1 po q days 2-5 ZITHROMAX 250 MG TAB 859208 AZITHROMYCIN Inactive TERBINAFINE HCL 250 MG TABS 1 tab po qday for foot infection 2014 TERBINAFINE HCL 250 MG TABS 697585 TERBINAFINE HCL Inactive KEFLEX 500 MG CAP 1 po TID x 10 days KEFLEX 500 MG CAP 034351 CEPHALEXIN Inactive BACTRIM DS 800-160 MG TAB 1 tab by mouth twice daily BACTRIM DS 800-160 MG TAB 634576 TRIMETHOPRIM-SULFAMETHOXAZOLE Inactive PREDNISONE 20 MG TAB take 3 tabs daily for 3 days, 2 tabs daily for 3 days, 1 tab daily for 3 days, 1/2 tab daily for 4 days PREDNISONE 20 MG TAB 347364 PREDNISONE Inactive Advance Directives Directive Description Start [...] AUTO - Chemistry sodium, serum 142 mmol/L 664-595 8949/07/17 carbon dioxide, venous blood 28.2 mmol/L 21.0-32.0 [...] % 11.0-15.0 platelet count 185 THOUSAND/UL 10*3/mm3 293-208 7672/04/14 mean platelet volume 10.9 fL 7.5-12.5 Lab Report: LIPID PANEL, TSH/899, T4, FREE/866 - Chemistry cholesterol, serum 220 mg/dL 290-098 0261/04/14 HDL cholesterol, serum 30 mg/dL > OR=40 [...] 1.80 ng/mL 0.00-4.00 Lab Report: VITAMIN D, 25-HYDROXY/34229 - Chemistry vitamin D 25-hydroxy, serum 25 ng/mL 30-100 Office Visit: Confusion, dizziness after fall - Basic LDL target level 130 mg/dL Office Visit: Confusion, dizziness after fall - Chemistry HDL cholesterol, serum, target level 40 mg/dL triglyceride, target level 150 mg/dL cholesterol, target level 200 mg/dL Encounters Code Encounter Date Provider Facility CPT-63735 Level 3 Est. Patient 15:40:49 CDT Robbie Busby MD [facility] CPT-12533 Level 4 Est. Patient 15:18:19 CDT Robbie Busby MD [facility] CPT-75121 Level 3 Est. Patient 09:00:37 CDT Rober Rodríguez [facility] CPT-45228 Level 3 Est. Patient 16:07:10 CDT Robbie Busby MD [facility] CPT-28668 Level 4 Est. Patient 11:56:16 CDT Erin Garsia [facility] CPT-33661 Level 3 Est. Patient 17:48:02 CDT oRbbie Busby MD [facility] CPT-58920 Level 4 Est. Patient 12:00:49 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 Rober Rodríguez [facility] CPT-40006 Level 3 Est. Patient 09:16:37 CDT Robbie Busby MD [facility] CPT-80653 Level 3 Est. Patient 19:38:43 CDT Robbie Busby MD [facility] CPT-66212 Level 3 Est. Patient 11:53:38 CDT Robbie Busby MD [facility]-00725 Level 4 Est. Patient 12:52:22 CDT Rober Rodríguez APRN [facility] CPT-03315 Level 4 Est. Patient 22:55:17 CDT Robbie Busby MD [facility]-99750 Level 3 Est. Patient 12:38:24 CDT Desmond Diaz DO [facility] CPT-81866 Level 4 Est. 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 Patient 14:50:10 CDT Robbie Busby MD [facility] [place]-01057 Level 4 Est. Patient 23:30:43 CDT Robbie Busby MD [facility] CPT-84011 Level 4 Est. Patient 10:30:43 CDT Robbie Busby MD [facility] CPT-14095 Level 3 Est. Patient 17:08:12 CDT Alex ALVAREZ [facility] CPT-28133 Level 4 Est. Patient 17:51:38 CDT Robbie Busby MD [facility] CPT-21942 Level 4 Est. Patient 14:00:21 CDT Robbie Busby MD [facility] CPT-01519 Level 4 Est. Patient 12:46:48 CDT Robbie Busby MD [facility] [place]-12399 Level 4 Est. Patient 13:34:33 CDT Robbie Busby MD [facility] [place]-86076 Level 4 Est. Patient 16:58:28 CDT Robbie Busby MD [facility] [place]-38994 Level 3 Est. Patient 19:36:53 CDT Alex ALVAREZ [facility] CPT-14582 Level 3 Est. Patient 12:58:15 CDT Robbie Busby MD [facility] Procedures Code Procedure Name Date Entry Date Standard Description CPT-J1071 Depo Testosterone 200mg 14:20:43 CDT CPT-14164 Abx/Therapy Injection 14:20:43 CDT CPT-J1071 Depo Testosterone 200mg 14:17:22 CDT CPT-99830 Abx/Therapy Injection 14:17:22 CDT CPT-J1071 Depo Testosterone 200mg 09:03:53 CDT CPT-92995 Abx/Therapy Injection 09:03:53 CDT CPT-G04[address] [facility] Annual Wellness Exam 16:47:44 CDT CPT-J1071 Depo Testosterone 200mg 09:06:28 CDT CPT-22220 Abx/Therapy Injection 09:06:28 CDT CPT-J1071 Depo Testosterone 200mg 08:30:01 CDT CPT-13481 Abx/Therapy Injection 08:30:01 CDT CPT-J1071 Depo Testosterone 200mg 08:24:00 CDT CPT-47996 Abx/Therapy Injection 08:24:00 CDT CPT-61172 Venipuncture Draw Fee 14:39:06 CDT CPT-94498 Ribs unilateral 2V - XRAY USE ONLY 12:10:11 CDT CPT-97454 First Vx - Ix admin for Medicare patients 16:32:53 CDT CPT-91607 Boostrix Intramuscular Suspension 5-2.5-18.5 16:32:53 CDT CPT-78194 TB Skin Test 11:42:28 CDT CPT-77110 Tdap 7yrs or > 11:42:28 CDT CPT-J0696 Rocephin 1000 mg (Ceftriaxone) 17:43:43 [employer]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 CPT-J1040 Depo Medrol 80 mg (Methyl Prednisolone Acetate) 17:43: 43 [employer]CHO[employer] TECH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 CPT-J1100 Decadron 8mg (Dexamethasone) 17:43:42 [employer]CHO[employer] TECH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 CPT-84156 Abx/Therapy Injection 17:43:42 [employer]CHO[employer] TECH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 CPT-13902 Abx/Therapy Injection 17:43:42 [employer] SCHO[employer] TECH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 CPT-J1040 Depo Medrol 80 mg (Methyl Prednisolone Acetate) 09:43: 34 [employer] TECH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 CPT-J1100 Decadron 8mg (Dexamethasone) 09:43:34 [employer] TECH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 CPT-J0696 Rocephin 1gm Inj Solr 09:43:34 [employer] TECH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 CPT-03558 Wound Culture - LAB USE ONLY 14:00:21 CDT CPT-I/D I/D Abscess 09:16:37 CDT CPT-73912 Venipuncture Draw Fee 15:20:23 CDT CPT-37709 Microalbumin - LAB USE ONLY 16:02:19 CDT CPT-62431 CBC - LAB USE ONLY 16:02:19 CDT CPT-38359 Venipuncture Draw Fee 16:02:19 CDT CPT-G0438 Initial Annual Wellness Exam 08:10:28 CDT CPT-06018 Venipuncture Draw Fee 13:07:17 CDT CPT-G0008 Administration of Influenza Virus Vaccine 16:09:59 CDT CPT-86455 Fluzone Quadrivalent Intramuscular Suspension 0.5 ML 16: 09:59 CDT CPT-56228 Spec Collection and Handling Fee 15:05:50 CDT
--- OUTSIDE RECORDS SUMMARY | 2018-04-18 15:15 | XMS REPORT | Clinical Summary ---
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 HYDROCODONE-ACETAMINOPHEN 5-325 MG TABS 1 tab by mouth BID prn back pain 2013 HYDROCODONE-ACETAMINOPHEN 39730467995 No Longer Active Jillina Frazell AUGER MACHINE OFFBEARER Active HYDROCHLOROTHIAZIDE TABS Take one by mouth daily HYDROCHLOROTHIAZIDE TABS 98487731537 No Longer Active Jillina Frazell AUGER MACHINE OFFBEARER Active LAMISIL 125 MG ORAL PACK 1 TAB PO DAILY TERBINAFINE HCL 22371798322 No Longer Active Jillina Frazell AUGER MACHINE OFFBEARER Active TRILEPTAL 150 MG ORAL TABS 1 TAB PO Q HS OXCARBAZEPINE 11699273050 No Longer Active Jillina Frazell AUGER MACHINE OFFBEARER Active BETADINE 10 % EXT SOLN wash with solution to treat follicultis POVIDONE-IODINE 13771470579 No Longer Active Jillina Frazell AUGER MACHINE OFFBEARER Active NYSTATIN 071993 UNIT/ML M/T SUSP 5mL po QID x 10 days NYSTATIN 30601265333 No Longer Active Erin Garsia APRN Active PREDNISONE 20 MG TAB 1 tablet twice daily for 2 days, then 1 tablet once daily for 2 days PREDNISONE 20108637010 No Longer Active Robbie Busby MD Active CEFDINIR 300 MG ORAL CAPS Take 1 cap po bid x 10 days CEFDINIR 25913425581 No Longer Active Robbie Busby MD Active AMLODIPINE BESYLATE 10 MG TABS 1 tablet by mouth daily AMLODIPINE BESYLATE 69713197870 Active Robbie Busby MD Active CARVEDILOL 25 MG TABS 1 & 1/2 TAB po BID CARVEDILOL 50758841234 Active Erin Garsia APRN Active VITAMIN D3 45976 UNIT CAPS 2 CAPS PO WEEKLY CHOLECALCIFEROL 18326200254 Active Erin Garsia APRN Active NEXIUM 40 MG CPDR 1 cap by mouth daily ESOMEPRAZOLE MAGNESIUM 51907885673 Active Gali Negro Active PROTONIX 40 MG SOLR 1 po qday for acid reflux PANTOPRAZOLE SODIUM 22797042325 No Longer Active Gali Negro Active KEFLEX 500 MG CAP 1 po TID x 10 days CEPHALEXIN 13550735050 No Longer Active Robbie Busby MD Active FIORICET 50-300-40 MG ORAL CAPS take 1 tab po qday prn migraines. [id number] 28805583933 Active Robbie Busby MD Active TOPIRAMATE 50 MG ORAL TABS take 1 tab po BID for migraines. TOPIRAMATE 14148123648 Active Robbie Busby MD Active MECLIZINE HCL 25 MG TAB one 4 times a day as needed for dizziness MECLIZINE HCL 64393390821 Active Robbie Busby MD Active TEMAZEPAM 15 MG ORAL CAPS 1 TAB PO Q HS TEMAZEPAM 50056942899 Active Robbie Busby MD Active ALPRAZOLAM 2 MG ORAL TABS 1 TAB PO BID ALPRAZOLAM 95508141588 Active Robbie Busby MD Active FENOFIBRATE 145 MG TABS Take one by mouth daily FENOFIBRATE 46728832658 No Longer Active Robbie Busby MD Active SPIRONOLACTONE 50 MG TABS 1 tablet by mouth twice a day SPIRONOLACTONE 27441453620 No Longer Active Robbie Busby MD Active HYDRALAZINE HCL 25 MG TABS 1 tablet by mouth tid for hypertension HYDRALAZINE HCL 76121498919 No Longer Active Robbie Busby MD Active VIIBRYD 40 MG TABS take 1 tab po qday for depression. VILAZODONE HCL 29441220429 No Longer Active Robbie Busby MD Active TERBINAFINE HCL 250 MG TABS 1 tab po qday for foot infection 2014 TERBINAFINE HCL 46863826027 No Longer Active Robbie Busby MD Active GABAPENTIN 300 MG CAPS 1 po q hs for nerve pain GABAPENTIN 00790387686 Active Robbie Busby MD Active FLONASE 50 MCG/ACT SUSP 1 spray each nostril twice daily for allergies and runny nose FLUTICASONE PROPIONATE 08184739176 Active Robbie Busby MD Active CHERATUSSIN AC 100-10 MG/5ML ORAL SOLN 7.5 mL PO q 4-6 hrs PRN cough GUAIFENESIN-CODEINE 13572382317 No Longer Active Robbie Busby MD Active AZITHROMYCIN 250 MG ORAL TABS 2 tablets PO today---then, 1 tablet PO daily x 4 more days (and 1 optional refill) AZITHROMYCIN 90978239590 No Longer Active Robbie Busby MD Active CLONIDINE HCL 0.2 MG ORAL TABS 1 TAB BY MOUTH EVERY 8 HOURS CLONIDINE HCL 26629759594 Active Erin Garsia APRN Active NORVASC 10 MG TAB 1 tablet by mouth daily AMLODIPINE BESYLATE 31270983470 No Longer Active Alex ALVAREZ Active IMDUR 60 MG TAB CR take 1 tab po qday for blood pressure ISOSORBIDE MONONITRATE Active Robbie Busby MD Active ISOSORBIDE DINITRATE 30 MG TABS Take one by mouth daily ISOSORBIDE DINITRATE 32127888001 No Longer Active Robbie Busby MD Active VIIBRYD 40 MG TABS 1 TA B PO DAILY VILAZODONE HCL 36018147544 Active Robbie Busby MD Active LORATADINE 10 MG TABS 1 tablet by mouth daily for congestion and allergies. LORATADINE 32417099260 Active Robbie Busby MD Active ZITHROMAX 250 MG TAB 2 po today, then 1 po q days 2-5 AZITHROMYCIN 26417308015 No Longer Active Robbie Busby MD Active [id number]-[id number]-5 0.3 MG/24HR PTWK apply 2 patches q week for HTN CLONIDINE HCL 04573972274 Active Robbie Busby MD Active NITROSTAT 0.4 MG SUBL PRN NITROGLYCERIN 30506828543 Active Robbie Busby MD Active DOXAZOSIN MESYLATE 4 MG TABS Take one by mouth daily DOXAZOSIN MESYLATE 77933118135 Active Erin Garsia APRN Active TOPROL XL 200 MG EO73H-AOX Take one by mouth daily METOPROLOL SUCCINATE 70793283674 Active Robbie Busby MD Active VENLAFAXINE HCL ER 150 MG [id number] Take one by mouth daily VENLAFAXINE HCL 49183595833 Active Robbie Busby MD Active LIPITOR 40 MG TABS Take one by mouth daily ATORVASTATIN CALCIUM 39045546005 Active Robbie Busby MD Active ISOSORBIDE DINITRATE 30 MG TABS Take one by mouth daily ISOSORBIDE DINITRATE 30 MG TABS 682959 ISOSORBIDE DINITRATE Inactive NORVASC 10 MG TAB 1 tablet by mouth daily NORVASC 10 MG TAB 049461 AMLODIPINE BESYLATE Inactive AZITHROMYCIN 250 MG ORAL TABS 2 tablets PO today---then, 1 tablet PO daily x 4 more days (and 1 optional refill) AZITHROMYCIN 250 MG ORAL TABS 6279543 AZITHROMYCIN Inactive CHERATUSSIN AC 100-10 MG/5ML ORAL SOLN 7.5 mL PO q 4-6 hrs PRN cough CHERATUSSIN AC 100-10 MG/5ML ORAL SOLN 229194 GUAIFENESIN- CODEINE Inactive VIIBRYD 40 MG TABS take 1 tab po qday for depression. VIIBRYD 40 MG TABS VILAZODONE HCL Inactive HYDRALAZINE HCL 25 MG TABS 1 tablet by mouth tid for hypertension HYDRALAZINE HCL 25 MG TABS 680805 HYDRALAZINE HCL Inactive SPIRONOLACTONE 50 MG TABS 1 tablet by mouth twice a day SPIRONOLACTONE 50 MG TABS 284549 SPIRONOLACTONE Inactive FENOFIBRATE 145 MG TABS Take one by mouth daily FENOFIBRATE 145 MG TABS 716141 FENOFIBRATE Inactive PROTONIX 40 MG SOLR 1 po qday for acid reflux PROTONIX 40 MG SOLR 813599 PANTOPRAZOLE SODIUM Inactive CEFDINIR 300 MG ORAL CAPS Take 1 cap po bid x 10 days CEFDINIR 300 MG ORAL CAPS 920661 CEFDINIR Inactive PREDNISONE 20 MG TAB 1 tablet twice daily for 2 days, then 1 tablet once daily for 2 days PREDNISONE 20 MG TAB 832745 PREDNISONE Inactive NYSTATIN 755726 UNIT/ML M/T SUSP 5mL po QID x 10 days NYSTATIN 538882 UNIT/ML M/T SUSP 774983 NYSTATIN Inactive BETADINE 10 % EXT SOLN wash with solution to treat follicultis BETADINE 10 % EXT SOLN 8273894 POVIDONE-IODINE Inactive TRILEPTAL 150 MG ORAL TABS 1 TAB PO Q HS TRILEPTAL 150 MG ORAL TABS 455866 OXCARBAZEPINE Inactive LAMISIL 125 MG ORAL PACK 1 TAB PO DAILY LAMISIL 125 MG ORAL PACK TERBINAFINE HCL Inactive HYDROCHLOROTHIAZIDE TABS Take one by mouth daily HYDROCHLOROTHIAZIDE TABS HYDROCHLOROTHIAZIDE TABS Inactive HYDROCODONE-ACETAMINOPHEN 5-325 MG TABS 1 tab by mouth BID prn back pain 2013 HYDROCODONE-ACETAMINOPHEN 5-325 MG TABS 010081 HYDROCODONE -ACETAMINOPHEN Inactive HYDRALAZINE HCL 50 MG ORAL TABS TWO BY MOUTH THREE TIMES DAILY HYDRALAZINE HCL 50 MG ORAL TABS 635477 HYDRALAZINE HCL Inactive ZITHROMAX 250 MG TAB 2 po today, then 1 po q days 2-5 ZITHROMAX 250 MG TAB 5839139 AZITHROMYCIN Inactive TERBINAFINE HCL 250 MG TABS 1 tab po qday for foot infection 2014 TERBINAFINE HCL 250 MG TABS 927481 TERBINAFINE HCL Inactive KEFLEX 500 MG CAP 1 po TID x 10 days KEFLEX 500 MG CAP 953230 CEPHALEXIN Inactive BACTRIM DS 800-160 MG TAB 1 tab by mouth twice daily BACTRIM DS 800-160 MG TAB 905240 TRIMETHOPRIM-SULFAMETHOXAZOLE Inactive Advance Directives Directive Description Start [...] Acid - Chemistry sodium, serum 139 mmol/L 072-450 5328/04/22 carbon dioxide, venous blood 29.4 mmol/L 21.0-32.0 [...] to Follow Negative Lab Report: VITAMIN D, 25-HYDROXY/04753 - Chemistry vitamin D 25-hydroxy, serum 23 ng/mL 30-100 Encounters Code Encounter Date Provider Facility CPT-16626 Level 3 Est. Patient 09:16:37 CDT Robbie Busby MD [facility]-02478 Level 3 Est. Patient 19:38:43 CDT Robbie Busby MD [facility]-37387 Level 3 Est. Patient 11:53:38 CDT Robbie Busby MD [facility]-02457 Level 4 Est. Patient 12:52:22 CDT Rober Rodríguez APRN [facility]-91554 Level 4 Est. Patient 22:55:17 CDT Robbie Busby MD [facility]-03069 Level 3 Est. Patient 12:38:24 CDT Desmond Diaz DO [facility] CPT-90125 Level 4 Est. 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 Patient 14:50:10 CDT Robbie Busby MD [facility] CPT-67598 Level 4 Est. Patient 23:30:43 CDT Robbie Busby MD [facility] CPT-53391 Level 4 Est. Patient 10:30:43 CDT Robbie Busby MD [facility] CPT-50725 Level 3 Est. Patient 17:08:12 CDT Alex ALVAREZ [facility] CPT-27638 Level 4 Est. Patient 17:51:38 CDT Robbie Busby MD [facility] CPT-42405 Level 4 Est. Patient 14:00:21 CDT Robbie Busby MD [facility]-74888 Level 4 Est. Patient 12:46:48 CDT Robbie Busby MD [facility] CPT-19560 Level 4 Est. Patient 13:34:33 CDT Robbie Busby MD [facility] CPT-70216 Level 4 Est. Patient 16:58:28 CDT Robbie Busby MD [facility] CPT-65465 Level 3 Est. Patient 19:36:53 CDT Alex ALVAREZ [facility] CPT-21323 Level 3 Est. Patient 12:58:15 CDT Robbie Busby MD [facility] Procedures Code Procedure Name Date Entry Date Standard Description CPT-20527 Wound Culture - LAB USE ONLY 14:00:21 CDT CPT-I/D I/D Abscess 09:16:37 CDT CPT-56502 Venipuncture Draw Fee 15:20:23 CDT CPT-66016 Microalbumin - LAB USE ONLY 16:02:19 CDT CPT-32357 CBC - LAB USE ONLY 16:02:19 CDT CPT-96427 Venipuncture Draw Fee 16:02:19 CDT CPT-G0438 Initial Annual Wellness Exam 08:10:28 CDT CPT-01744 Venipuncture Draw Fee 13:07:17 CDT CPT-G0008 Administration of Influenza Virus Vaccine 16:09:59 CDT CPT-70887 Fluzone Quadrivalent Intramuscular Suspension 0.5 ML 16: 09:59 CDT CPT-56753 Spec Collection and Handling Fee 15:05:50 CDT
--- OUTSIDE RECORDS SUMMARY | 2018-04-18 15:16 | XMS REPORT | Clinical Summary ---
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 Active HYDROCODONE-ACETAMINOPHEN 5-325 MG TABS 1 tab by mouth BID prn back pain 2013 HYDROCODONE-ACETAMINOPHEN 36256186025 No Longer Active Jillina Frazell CHEMICAL INSTRUMENTATION OFFICER Active HYDROCHLOROTHIAZIDE TABS Take one by mouth daily HYDROCHLOROTHIAZIDE TABS 21403962306 No Longer Active Jillina Frazell CHEMICAL INSTRUMENTATION OFFICER Active LAMISIL 125 MG ORAL PACK 1 TAB PO DAILY TERBINAFINE HCL 22520653320 No Longer Active Jillina Frazell CHEMICAL INSTRUMENTATION OFFICER Active TRILEPTAL 150 MG ORAL TABS 1 TAB PO Q HS OXCARBAZEPINE 04930520859 No Longer Active Jillina Frazell CHEMICAL INSTRUMENTATION OFFICER Active BETADINE 10 % EXT SOLN wash with solution to treat follicultis POVIDONE-IODINE 78147741159 No Longer Active Jillina Frazell CHEMICAL INSTRUMENTATION OFFICER Active NYSTATIN 128689 UNIT/ML M/T SUSP 5mL po QID x 10 days NYSTATIN 25051037314 No Longer Active Erin Garsia APRN Active PREDNISONE 20 MG TAB 1 tablet twice daily for 2 days, then 1 tablet once daily for 2 days PREDNISONE 29146726934 No Longer Active Robbie Busby MD Active CEFDINIR 300 MG ORAL CAPS Take 1 cap po bid x 10 days CEFDINIR 83833805158 No Longer Active Robbie Busby MD Active AMLODIPINE BESYLATE 10 MG TABS 1 tablet by mouth daily AMLODIPINE BESYLATE 66889835321 Active Robbie Busby MD Active CARVEDILOL 25 MG TABS 1 & 1/2 TAB po BID CARVEDILOL 26753052153 Active Robbie Busby MD Active VITAMIN D3 31316 UNIT CAPS 2 CAPS PO WEEKLY CHOLECALCIFEROL 31342112005 Active Erin Ady CHEMICAL INSTRUMENTATION OFFICER Active NEXIUM 40 MG CPDR 1 cap by mouth daily ESOMEPRAZOLE MAGNESIUM 42386222075 Active Gali Negro Active PROTONIX 40 MG SOLR 1 po qday for acid reflux PANTOPRAZOLE SODIUM 81595005257 No Longer Active Gali Rajuan carlos Active KEFLEX 500 MG CAP 1 po TID x 10 days CEPHALEXIN 70351268475 No Longer Active Robbie Busby MD Active FIORICET 50-300-40 MG ORAL CAPS take 1 tab po qday prn migraines. [id number] 91551484772 Active Robbie Busby MD Active TOPIRAMATE 50 MG ORAL TABS take 1 tab po BID for migraines. TOPIRAMATE 77784764895 Active Robbie Busby MD Active MECLIZINE HCL 25 MG TAB one 4 times a day as needed for dizziness MECLIZINE HCL 70592635440 Active Robbie Busby MD Active TEMAZEPAM 15 MG ORAL CAPS 1 TAB PO Q HS TEMAZEPAM 20653540487 Active Robbie Busby MD Active ALPRAZOLAM 2 MG ORAL TABS 1 TAB PO BID ALPRAZOLAM 22108387740 Active Robbie Busby MD Active FENOFIBRATE 145 MG TABS Take one by mouth daily FENOFIBRATE 33724790291 No Longer Active Robbie Busby MD Active SPIRONOLACTONE 50 MG TABS 1 tablet by mouth twice a day SPIRONOLACTONE 26909297529 No Longer Active Robbie Busby MD Active HYDRALAZINE HCL 25 MG TABS 1 tablet by mouth tid for hypertension HYDRALAZINE HCL 18542935120 No Longer Active Robbie Busby MD Active VIIBRYD 40 MG TABS take 1 tab po qday for depression. VILAZODONE HCL 55930756567 No Longer Active Robbie Busby MD Active TERBINAFINE HCL 250 MG TABS 1 tab po qday for foot infection 2014 TERBINAFINE HCL 76080487988 No Longer Active Robbie Busby MD Active GABAPENTIN 300 MG CAPS 1 po q hs for nerve pain GABAPENTIN 74589722844 Active Robbie Busby MD Active FLONASE 50 MCG/ACT SUSP 1 spray each nostril twice daily for allergies and runny nose FLUTICASONE PROPIONATE 21561465910 Active Robbie Busby MD Active CHERATUSSIN AC 100-10 MG/5ML ORAL SOLN 7.5 mL PO q 4-6 hrs PRN cough GUAIFENESIN-CODEINE 94550770626 No Longer Active Robbie Busby MD Active AZITHROMYCIN 250 MG ORAL TABS 2 tablets PO today---then, 1 tablet PO daily x 4 more days (and 1 optional refill) AZITHROMYCIN 30892530057 No Longer Active Robbie Busby MD Active CLONIDINE HCL 0.2 MG ORAL TABS 1 TAB BY MOUTH EVERY 8 HOURS CLONIDINE HCL 95817456576 Active Robbie Busby MD Active NORVASC 10 MG TAB 1 tablet by mouth daily AMLODIPINE BESYLATE 15873228039 No Longer Active Alex ALVAREZ Active IMDUR 60 MG TAB CR take 1 tab po qday for blood pressure ISOSORBIDE MONONITRATE Active Robbie Busby MD Active ISOSORBIDE DINITRATE 30 MG TABS Take one by mouth daily ISOSORBIDE DINITRATE 57517281671 No Longer Active Robbie Busby MD Active VIIBRYD 40 MG TABS 1 TA B PO DAILY VILAZODONE HCL 45354330853 Active Robbie Busby MD Active LORATADINE 10 MG TABS 1 tablet by mouth daily for congestion and allergies. LORATADINE 98897833320 Active Robbie Busby MD Active ZITHROMAX 250 MG TAB 2 po today, then 1 po q days 2-5 AZITHROMYCIN 32648761419 No Longer Active Robbie Busby MD Active [id number] 0.3 MG/24HR PTWK apply 2 patches q week for HTN CLONIDINE HCL 86079590597 Active Robbie Busby MD Active NITROSTAT 0.4 MG SUBL PRN NITROGLYCERIN 05873271262 Active Robbie Busby MD Active DOXAZOSIN MESYLATE 4 MG TABS Take one by mouth daily DOXAZOSIN MESYLATE 43662118505 Active Robbie Busby MD Active TOPROL XL 200 MG [id number]-LOQ Take one by mouth daily METOPROLOL SUCCINATE 34599236771 Active Robbie Busby MD Active VENLAFAXINE HCL ER 150 MG [id number] Take one by mouth daily VENLAFAXINE HCL 68468041906 Active Robbie Busby MD Active LIPITOR 40 MG TABS Take one by mouth daily ATORVASTATIN CALCIUM 26842113301 Active Robbie Bubsy MD Active ISOSORBIDE DINITRATE 30 MG TABS Take one by mouth daily ISOSORBIDE DINITRATE 30 MG TABS 326520 ISOSORBIDE DINITRATE Inactive NORVASC 10 MG TAB 1 tablet by mouth daily NORVASC 10 MG TAB 016222 AMLODIPINE BESYLATE Inactive AZITHROMYCIN 250 MG ORAL TABS 2 tablets PO today---then, 1 tablet PO daily x 4 more days (and 1 optional refill) AZITHROMYCIN 250 MG ORAL TABS 2913371 AZITHROMYCIN Inactive CHERATUSSIN AC 100-10 MG/5ML ORAL SOLN 7.5 mL PO q 4-6 hrs PRN cough CHERATUSSIN AC 100-10 MG/5ML ORAL SOLN 327119 GUAIFENESIN- CODEINE Inactive VIIBRYD 40 MG TABS take 1 tab po qday for depression. VIIBRYD 40 MG TABS VILAZODONE HCL Inactive HYDRALAZINE HCL 25 MG TABS 1 tablet by mouth tid for hypertension HYDRALAZINE HCL 25 MG TABS 602384 HYDRALAZINE HCL Inactive SPIRONOLACTONE 50 MG TABS 1 tablet by mouth twice a day SPIRONOLACTONE 50 MG TABS 942303 SPIRONOLACTONE Inactive FENOFIBRATE 145 MG TABS Take one by mouth daily FENOFIBRATE 145 MG TABS 023900 FENOFIBRATE Inactive PROTONIX 40 MG SOLR 1 po qday for acid reflux PROTONIX 40 MG SOLR 009278 PANTOPRAZOLE SODIUM Inactive CEFDINIR 300 MG ORAL CAPS Take 1 cap po bid x 10 days CEFDINIR 300 MG ORAL CAPS 789718 CEFDINIR Inactive PREDNISONE 20 MG TAB 1 tablet twice daily for 2 days, then 1 tablet once daily for 2 days PREDNISONE 20 MG TAB 742631 PREDNISONE Inactive NYSTATIN 007598 UNIT/ML M/T SUSP 5mL po QID x 10 days NYSTATIN 303752 UNIT/ML M/T SUSP 674775 NYSTATIN Inactive BETADINE 10 % EXT SOLN wash with solution to treat follicultis BETADINE 10 % EXT SOLN 7806907 POVIDONE-IODINE Inactive TRILEPTAL 150 MG ORAL TABS 1 TAB PO Q HS TRILEPTAL 150 MG ORAL TABS 863511 OXCARBAZEPINE Inactive LAMISIL 125 MG ORAL PACK 1 TAB PO DAILY LAMISIL 125 MG ORAL PACK TERBINAFINE HCL Inactive HYDROCHLOROTHIAZIDE TABS Take one by mouth daily HYDROCHLOROTHIAZIDE TABS HYDROCHLOROTHIAZIDE TABS Inactive HYDROCODONE-ACETAMINOPHEN 5-325 MG TABS 1 tab by mouth BID prn back pain 2013 HYDROCODONE-ACETAMINOPHEN 5-325 MG TABS 806781 HYDROCODONE -ACETAMINOPHEN Inactive HYDRALAZINE HCL 50 MG ORAL TABS TWO BY MOUTH THREE TIMES DAILY HYDRALAZINE HCL 50 MG ORAL TABS 337055 HYDRALAZINE HCL Inactive ZITHROMAX 250 MG TAB 2 po today, then 1 po q days 2-5 ZITHROMAX 250 MG TAB 4385146 AZITHROMYCIN Inactive TERBINAFINE HCL 250 MG TABS 1 tab po qday for foot infection 2014 TERBINAFINE HCL 250 MG TABS 585042 TERBINAFINE HCL Inactive KEFLEX 500 MG CAP 1 po TID x 10 days KEFLEX 500 MG CAP 076368 CEPHALEXIN Inactive Advance Directives Directive Description Start [...] Acid - Chemistry sodium, serum 139 mmol/L 796-245 3728/04/22 carbon dioxide, venous blood 29.4 mmol/L 21.0-32.0 [...] to Follow Negative Lab Report: VITAMIN D, 25-HYDROXY/28299 - Chemistry vitamin D 25-hydroxy, serum 23 ng/mL 30-100 Encounters Code Encounter Date Provider Facility CPT-91581 Level 3 Est. Patient 19:38:43 CDT Robbie Busby MD [facility] CPT-25385 Level 3 Est. Patient 11:53:38 CDT Robbie Busby MD [facility] CPT-74695 Level 4 Est. Patient 12:52:22 CDT Rober Rodríguez APRN [facility] CPT-05506 Level 4 Est. Patient 22:55:17 CDT Robbie Busby MD [facility] CPT-16649 Level 3 Est. Patient 12:38:24 CDT Desmond Diaz DO [facility] CPT-15844 Level 4 Est. 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 Patient 14:50:10 CDT Robbie Busby MD [facility] CPT-61875 Level 4 Est. Patient 23:30:43 CDT Robbie Busby MD [facility] CPT-48864 Level 4 Est. Patient 10:30:43 CDT Robbie Busby MD [facility] CPT-13563 Level 3 Est. Patient 17:08:12 CDT Alex Shaw [facility] CPT-82751 Level 4 Est. Patient 17:51:38 CDT Robbie Busby MD [facility] CPT-16403 Level 4 Est. Patient 14:00:21 CDT Robbie Busby MD [facility] CPT-92380 Level 4 Est. Patient 12:46:48 CDT Robbie Busby MD [facility] CPT-15882 Level 4 Est. Patient 13:34:33 CDT Robbie Busby MD [facility] CPT-16284 Level 4 Est. Patient 16:58:28 CDT Robbie Busby MD [facility] CPT-93346 Level 3 Est. Patient 19:36:53 CDT Alex Shaw [facility] CPT-44179 Level 3 Est. Patient 12:58:15 CDT Robbie Busby MD [facility] Procedures Code Procedure Name Date Entry Date Standard Description CPT-35363 Venipuncture Draw Fee 15:20:23 CDT CPT-22553 Microalbumin - LAB USE ONLY 16:02:19 CDT CPT-39508 CBC - LAB USE ONLY 16:02:19 CDT CPT-92079 Venipuncture Draw Fee 16:02:19 CDT CPT-G0438 Initial Annual Wellness Exam 08:10:28 CDT CPT-56792 Venipuncture Draw Fee 13:07:17 CDT CPT-G0008 Administration of Influenza Virus Vaccine 16:09:59 CDT CPT-62200 Fluzone Quadrivalent Intramuscular Suspension 0.5 ML 16: 09:59 CDT CPT-25903 Spec Collection and Handling Fee 15:05:50 CDT
--- OUTSIDE RECORDS SUMMARY | 2018-04-18 15:18 | XMS REPORT | Clinical Summary ---
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 Desmond Diaz DO Other malignant secondary hypertension Tachycardia 785.0 Active Rober Rodríguez SITE LEADER Tachycardia, unspecified Insect bite, infected 919.5 Resolved Desmond Diaz DO Insect bite, nonvenomous, of other, multiple, and unspecified sites, infected Abscess, skin 682.9 Resolved Desmond Diaz DO Cellulitis and abscess of unspecified sites URI 465.9 Resolved Desmond Diaz DO Acute upper respiratory infections of unspecified site Hypertension 401.9 Active Rober Rodríguez SITE LEADER Unspecified essential hypertension Sinusitis - acute 461.9 [...] low testosterone 257.2 Active Erin Mai SITE LEADER Other testicular hypofunction Low back pain, chronic [...] 37.0-37.9, adult Sinusitis ICD-461.9 Inactive Emily Atwood TRAFFIC PERSONNEL SUPERVISOR 2017 Low back pain, acute ICD-724.2 Inactive Emily Atwood TRAFFIC PERSONNEL SUPERVISOR Low back pain, chronic ICD-724.2 Inactive Emily Atwood TRAFFIC PERSONNEL SUPERVISOR Bronchitis, acute ICD-466.0 Inactive Emily Atwood TRAFFIC PERSONNEL SUPERVISOR Onychomycosis, toenails ICD-110.1 Inactive Emily Atwood TRAFFIC PERSONNEL SUPERVISOR Dizziness ICD-780.4 Inactive Emily Atwood TRAFFIC PERSONNEL SUPERVISOR 2017 Folliculitis ICD-704.8 Inactive Emily Atwood TRAFFIC PERSONNEL SUPERVISOR Pharyngitis-Acute ICD-462 Inactive Emily Atwood TRAFFIC PERSONNEL SUPERVISOR Fatigue ICD-780.79 Inactive Emily Atwood TRAFFIC PERSONNEL SUPERVISOR 09/20 Hypertension, secondary, malignant ICD-405.09 Inactive Emily Atwood TRAFFIC PERSONNEL SUPERVISOR Insect bite, infected ICD-919.5 Inactive Emily Atwood TRAFFIC PERSONNEL SUPERVISOR Abscess, skin ICD-682.9 Inactive Emily Atwood TRAFFIC PERSONNEL SUPERVISOR URI ICD-465.9 Inactive Emily Atwood TRAFFIC PERSONNEL SUPERVISOR Sinusitis - acute ICD-461.9 Inactive Emily Atwood TRAFFIC PERSONNEL SUPERVISOR Acute confusion ICD-293.0 Inactive Emily Atwood TRAFFIC PERSONNEL SUPERVISOR Headache ICD-784.0 Inactive Emily Rai CISSE 09/20 Back pain ICD-724.5 Inactive Emily Atwood TRAFFIC PERSONNEL SUPERVISOR 2017 Rib pain, right sided ICD-786.50 [...] blood pressure and rapid pulse METOPROLOL SUCCINATE 98474114541 Active Robbie Busby MD Active [id number]-2 0.3 MG/24HR TRANSDERMAL PATCH WEEKLY apply 2 patches q week for HTN CLONIDINE HCL 40563613354 No Longer Active Robbie Busby MD Active IMDUR 60 MG ORAL TABLET EXTENDED RELEASE 24 HOUR take 1 tab po qday for blood pressure ISOSORBIDE MONONITRATE 22667110201 No Longer Active Robbie Busby MD Active TEMAZEPAM 15 MG ORAL CAPSULE 1 TAB PO Q HS TEMAZEPAM 67198069205 No Longer Active Robbie Busby MD Active TOPIRAMATE 50 MG ORAL TABLET 1 po BID for migraines TOPIRAMATE 03763330788 No Longer Active Robbie Busby MD Active CYCLOBENZAPRINE HCL 10 MG ORAL TABLET 1 tablet by mouth three times daily as needed for muscle spasm/pain CYCLOBENZAPRINE HCL 10714728735 No Longer Active Robbie Busby MD Active TOPROL XL 200 MG ORAL TABLET EXTENDED RELEASE 24 HOUR Take one by mouth daily METOPROLOL SUCCINATE 78954820387 No Longer Active Robbie Busby MD Active METFORMIN HCL 500 MG ORAL TABLET 1 tablet by mouth daily for diabetes type 2 METFORMIN HCL 32301812313 Active Robbie Busby MD Active SINGULAIR 10 MG ORAL TABLET 1 po qday for allergies. MONTELUKAST SODIUM 85583550430 No Longer Active Robbie Busby MD Active PREDNISONE 20 MG ORAL TABLET two tabs by mouth today, then one tab by mouth days two and three PREDNISONE 43434447893 No Longer Active Robbie Busby MD Active AZITHROMYCIN 250 MG ORAL TABLET 2 po qd x 1 day, then 1 po qd x 4 days 09/20 AZITHROMYCIN 11973154329 No Longer Active Desmond Diaz DO Active TOPIRAMATE 50 MG ORAL TABLET take 1 tab po BID for migraines. TOPIRAMATE 84113534765 No Longer Active Desmond Diaz DO Active CYCLOBENZAPRINE HCL 10 MG ORAL TABLET 1 po TID PRN muscle spasm/pain for 10 days CYCLOBENZAPRINE HCL 01349133631 No Longer Active Desmond Diaz DO Active GUAIFENESIN ER 600 MG ORAL TABLET EXTENDED RELEASE 12 HOUR 1 tab po q am 2016 GUAIFENESIN 52433356956 No Longer Active Robbie Busby MD Active DIVALPROEX SODIUM ER 500 MG ORAL TABLET EXTENDED RELEASE 24 HOUR Once daily DIVALPROEX SODIUM 43410189493 Active Robbie Busby MD Active DEPO-TESTOSTERONE 200 MG/ML INTRAMUSCULAR SOLUTION 1 IM Injections every 2 weeks for low testosterone TESTOSTERONE CYPIONATE 27256250080 Active Zulema Blank LPN Active FLUTICASONE PROPIONATE 50 MCG/ACT NASAL SUSPENSION 2 sprays per nostril bid for 1 week, then 1 spray bid FLUTICASONE PROPIONATE 84898312043 Active Rober Rodríguez APRN Active HYDRALAZINE HCL 25 MG ORAL TABLET Take 1 tab BID. HYDRALAZINE HCL 94341345954 Active Rober Rodríguez APRN Active VITAMIN D3 62447 UNIT ORAL TABLET 2 po weekly CHOLECALCIFEROL 72545102880 Active Robbie Busby MD Active OXYCODONE HCL ER 10 MG ORAL TABLET ER 12 HOUR ABUSE-DETERRENT 1 tab po 3 times qd. OXYCODONE HCL 98010469787 Active Robbie Busby MD Active NITROSTAT 0.4 MG SUBLINGUAL TABLET SUBLINGUAL PRN NITROGLYCERIN 25633203935 No Longer Active Robbie Busby MD Active LORATADINE 10 MG ORAL TABLET 1 tablet by mouth daily for congestion and allergies. LORATADINE 42860448619 No Longer Active Robbie Busby MD Active FLONASE 50 MCG/ACT NASAL SUSPENSION 1 spray each nostril twice daily for allergies and runny nose FLUTICASONE PROPIONATE 93587642921 No Longer Active Robbie Busby MD Active FIORICET 50-300-40 MG ORAL CAPSULE take 1 tab po qday prn migraines. [id number] 65156961300 No Longer Active Robbie Busby MD Active VITAMIN D3 34982 UNIT ORAL CAPSULE 2 CAPS PO WEEKLY CHOLECALCIFEROL 67916938637 No Longer Active Robbie Busby MD Active CYCLOBENZAPRINE HCL 10 MG ORAL TABLET 1 tablet by mouth three times daily as needed for muscle spasm/pain for 10 days CYCLOBENZAPRINE HCL 25608123847 No Longer Active Robbie Busby MD Active PREDNISONE 20 MG ORAL TABLET take 3 tabs daily for 3 days, 2 tabs daily for 3 days, 1 tab daily for 3 days, 1/2 tab daily for 4 days PREDNISONE 16693674590 No Longer Active Erin Mai APRN Active CLONIDINE HCL 0.2 MG ORAL TABLET 1 TAB BY MOUTH EVERY 8 HOURS CLONIDINE HCL 58537581071 No Longer Active Erin Mai APRN Active MECLIZINE HCL 25 MG ORAL TABLET one 4 times a day as needed for dizziness MECLIZINE HCL 74874711438 No Longer Active Erin Arell SITE LEADER Active SPIRONOLACTONE 25 MG ORAL TABLET 4 tablets by mouth daily SPIRONOLACTONE 02636458876 No Longer Active Erin Arell SITE LEADER Active LEVAQUIN 500 MG ORAL TABLET 1 tablet by mouth daily for 7 days LEVOFLOXACIN 69790585685 No Longer Active Erin Arell SITE LEADER Active BACTRIM DS 800-160 MG ORAL TABLET 1 tab by mouth twice daily 2015 TRIMETHOPRIM-SULFAMETHOXAZOLE 24696065107 No Longer Active Robbie Busby MD Active HYDRALAZINE HCL 50 MG ORAL TABLET TWO BY MOUTH THREE TIMES DAILY HYDRALAZINE HCL 17906697624 No Longer Active Agnieszkaina Zulemal SITE LEADER Active HYDROCODONE-ACETAMINOPHEN 5-325 MG ORAL TABLET 1 tab by mouth BID prn back pain HYDROCODONE-ACETAMINOPHEN 25424023509 No Longer Active Jillina Frazell SITE LEADER Active HYDROCHLOROTHIAZIDE TABLET Take one by mouth daily HYDROCHLOROTHIAZIDE TABS 25165304636 No Longer Active Jillina Frazell SITE LEADER Active LAMISIL 125 MG ORAL PACKET 1 TAB PO DAILY TERBINAFINE HCL 87571058007 No Longer Active Jillina Frazell SITE LEADER Active TRILEPTAL 150 MG ORAL TABLET 1 TAB PO Q HS OXCARBAZEPINE 91207022276 No Longer Active Jillina Frazell SITE LEADER Active BETADINE 10 % EXTERNAL SOLUTION wash with solution to treat follicultis 07/29 POVIDONE-IODINE 87174823229 No Longer Active Jillina Frazell SITE LEADER Active NYSTATIN 948360 UNIT/ML MOUTH/THROAT SUSPENSION 5mL po QID x 10 days NYSTATIN 13554034111 No Longer Active Erin Arell SITE LEADER Active PREDNISONE 20 MG ORAL TABLET 1 tablet twice daily for 2 days, then 1 tablet once daily for 2 days PREDNISONE 09835148933 No Longer Active Robbie Busby MD Active CEFDINIR 300 MG ORAL CAPSULE Take 1 cap po bid x 10 days CEFDINIR 26685161611 No Longer Active Robbie Busby MD Active AMLODIPINE BESYLATE 10 MG ORAL TABLET 1 tablet by mouth daily AMLODIPINE BESYLATE 97342684395 Active Robbie Busby MD Active CARVEDILOL 25 MG ORAL TABLET 1 & 1/2 TAB po BID CARVEDILOL 70223417346 Active Robbie Busby MD Active NEXIUM 40 MG ORAL CAPSULE DELAYED RELEASE 1 cap by mouth daily ESOMEPRAZOLE MAGNESIUM 18993199037 Active Robbie Busby MD Active PROTONIX 40 MG INTRAVENOUS SOLUTION RECONSTITUTED 1 po qday for acid reflux PANTOPRAZOLE SODIUM 14526968791 No Longer Active Galileonila Negro Active KEFLEX 500 MG ORAL CAPSULE 1 po TID x 10 days CEPHALEXIN 16674397607 No Longer Active Robbie Busby MD Active ALPRAZOLAM 2 MG ORAL TABLET 1 TAB PO BID ALPRAZOLAM 28887481313 Active Robbie Busby MD Active FENOFIBRATE 145 MG ORAL TABLET Take one by mouth daily FENOFIBRATE 74643543064 No Longer Active Robbie Busby MD Active SPIRONOLACTONE 50 MG ORAL TABLET 1 tablet by mouth twice a day SPIRONOLACTONE 20135717090 No Longer Active Robbie Busby MD Active HYDRALAZINE HCL 25 MG ORAL TABLET 1 tablet by mouth tid for hypertension 2013 HYDRALAZINE HCL 99530033917 No Longer Active Robbie Busby MD Active VIIBRYD 40 MG ORAL TABLET take 1 tab po qday for depression. 2014 VILAZODONE HCL 59471101708 No Longer Active Robbie Busby MD Active TERBINAFINE HCL 250 MG ORAL TABLET 1 tab po qday for foot infection TERBINAFINE HCL 87418420932 No Longer Active Robbie Busby MD Active GABAPENTIN 300 MG ORAL CAPSULE 1 po q hs for nerve pain GABAPENTIN 81703160683 Active Robbie Busby MD Active CHERATUSSIN AC 100-10 MG/5ML ORAL SOLUTION 7.5 mL PO q 4-6 hrs PRN cough 2014 GUAIFENESIN-CODEINE 04819127447 No Longer Active Robbie Busby MD Active AZITHROMYCIN 250 MG ORAL TABLET 2 tablets PO today---then, 1 tablet PO daily x 4 more days (and 1 optional refill) AZITHROMYCIN 25623436451 No Longer Active Robbie Busby MD Active NORVASC 10 MG ORAL TABLET 1 tablet by mouth daily AMLODIPINE BESYLATE 36297739569 No Longer Active Alex ALVAREZ Active ISOSORBIDE DINITRATE 30 MG ORAL TABLET Take one by mouth daily ISOSORBIDE DINITRATE 35073446698 No Longer Active Robbie Busby MD Active VIIBRYD 40 MG ORAL TABLET 1 TA B PO DAILY VILAZODONE HCL 67960401531 Active Robbie Busby MD Active ZITHROMAX 250 MG ORAL TABLET 2 po today, then 1 po q days 2-5 AZITHROMYCIN 49138119781 No Longer Active Robbie Busby MD Active DOXAZOSIN MESYLATE 4 MG ORAL TABLET Take one by mouth daily DOXAZOSIN MESYLATE 35112252320 Active Robbie Busby MD Active VENLAFAXINE HCL ER 150 MG ORAL TABLET EXTENDED RELEASE 24 HOUR Take one by mouth daily VENLAFAXINE HCL 13314694298 Active Robbie Busby MD Active LIPITOR 40 MG ORAL TABLET Take one by mouth daily ATORVASTATIN CALCIUM 61348333663 Active Robbie Busby MD Active ISOSORBIDE DINITRATE 30 MG ORAL TABLET Take one by mouth daily ISOSORBIDE DINITRATE 30 MG ORAL TABLET 288105 ISOSORBIDE DINITRATE Inactive NORVASC 10 MG ORAL TABLET 1 tablet by mouth daily NORVASC 10 MG ORAL TABLET 413715 AMLODIPINE BESYLATE Inactive AZITHROMYCIN 250 MG ORAL TABLET 2 tablets PO today---then, 1 tablet PO daily x 4 more days (and 1 optional refill) AZITHROMYCIN 250 MG ORAL TABLET 170721 AZITHROMYCIN Inactive CHERATUSSIN AC 100-10 MG/5ML ORAL SOLUTION 7.5 mL PO q 4-6 hrs PRN cough 2014 CHERATUSSIN AC 100-10 MG/5ML ORAL SOLUTION 794786 GUAIFENESIN-CODEINE Inactive VIIBRYD 40 MG ORAL TABLET take 1 tab po qday for depression. 2014 VIIBRYD 40 MG ORAL TABLET VILAZODONE HCL Inactive HYDRALAZINE HCL 25 MG ORAL TABLET 1 tablet by mouth tid for hypertension 2013 HYDRALAZINE HCL 25 MG ORAL TABLET 456208 HYDRALAZINE HCL Inactive SPIRONOLACTONE 50 MG ORAL TABLET 1 tablet by mouth twice a day SPIRONOLACTONE 50 MG ORAL TABLET 115810 SPIRONOLACTONE Inactive FENOFIBRATE 145 MG ORAL TABLET Take one by mouth daily FENOFIBRATE 145 MG ORAL TABLET 104342 FENOFIBRATE Inactive PROTONIX 40 MG INTRAVENOUS SOLUTION RECONSTITUTED 1 po qday for acid reflux PROTONIX 40 MG INTRAVENOUS SOLUTION RECONSTITUTED 691935 PANTOPRAZOLE SODIUM Inactive CEFDINIR 300 MG ORAL CAPSULE Take 1 cap po bid x 10 days CEFDINIR 300 MG ORAL CAPSULE 689180 CEFDINIR Inactive PREDNISONE 20 MG ORAL TABLET 1 tablet twice daily for 2 days, then 1 tablet once daily for 2 days PREDNISONE 20 MG ORAL TABLET 359441 PREDNISONE Inactive NYSTATIN 971655 UNIT/ML MOUTH/THROAT SUSPENSION 5mL po QID x 10 days NYSTATIN 428932 UNIT/ML MOUTH/THROAT SUSPENSION 136755 NYSTATIN Inactive BETADINE 10 % EXTERNAL SOLUTION wash with solution to treat follicultis 07/29 BETADINE 10 % EXTERNAL SOLUTION 5140321 POVIDONE-IODINE Inactive TRILEPTAL 150 MG ORAL TABLET 1 TAB PO Q HS TRILEPTAL 150 MG ORAL TABLET 704671 OXCARBAZEPINE Inactive LAMISIL 125 MG ORAL PACKET 1 TAB PO DAILY LAMISIL 125 MG ORAL PACKET TERBINAFINE HCL Inactive HYDROCHLOROTHIAZIDE TABLET Take one by mouth daily HYDROCHLOROTHIAZIDE TABLET HYDROCHLOROTHIAZIDE TABS Inactive HYDROCODONE-ACETAMINOPHEN 5-325 MG ORAL TABLET 1 tab by mouth BID prn back pain HYDROCODONE-ACETAMINOPHEN 5-325 MG ORAL TABLET 955824 HYDROCODONE-ACETAMINOPHEN Inactive HYDRALAZINE HCL 50 MG ORAL TABLET TWO BY MOUTH THREE TIMES DAILY HYDRALAZINE HCL 50 MG ORAL TABLET 691862 HYDRALAZINE HCL Inactive LEVAQUIN 500 MG ORAL TABLET 1 tablet by mouth daily for 7 days LEVAQUIN 500 MG ORAL TABLET 179459 LEVOFLOXACIN Inactive SPIRONOLACTONE 25 MG ORAL TABLET 4 tablets by mouth daily SPIRONOLACTONE 25 MG ORAL TABLET 339024 SPIRONOLACTONE Inactive MECLIZINE HCL 25 MG ORAL TABLET one 4 times a day as needed for dizziness MECLIZINE HCL 25 MG ORAL TABLET 937532 MECLIZINE HCL Inactive CLONIDINE HCL 0.2 MG ORAL TABLET 1 TAB BY MOUTH EVERY 8 HOURS CLONIDINE HCL 0.2 MG ORAL TABLET 021377 CLONIDINE HCL Inactive CYCLOBENZAPRINE HCL 10 MG ORAL TABLET 1 tablet by mouth three times daily as needed for muscle spasm/pain for 10 days CYCLOBENZAPRINE HCL 10 MG ORAL TABLET 020836 CYCLOBENZAPRINE HCL Inactive VITAMIN D3 68872 UNIT ORAL CAPSULE 2 CAPS PO WEEKLY VITAMIN D3 59058 UNIT ORAL CAPSULE CHOLECALCIFEROL Inactive FIORICET 50-300-40 MG ORAL CAPSULE take 1 tab po qday prn migraines. FIORICET 50-300-40 MG ORAL CAPSULE 442598 BUTALBITAL-APAP- CAFFEINE Inactive FLONASE 50 MCG/ACT NASAL SUSPENSION 1 spray each nostril twice daily for allergies and runny nose FLONASE 50 MCG/ACT NASAL SUSPENSION 9277401 FLUTICASONE PROPIONATE Inactive LORATADINE 10 MG ORAL TABLET 1 tablet by mouth daily for congestion and allergies. LORATADINE 10 MG ORAL TABLET 348988 LORATADINE Inactive NITROSTAT 0.4 MG SUBLINGUAL TABLET SUBLINGUAL PRN NITROSTAT 0.4 MG SUBLINGUAL TABLET SUBLINGUAL 186810 NITROGLYCERIN Inactive GUAIFENESIN ER 600 MG ORAL TABLET EXTENDED RELEASE 12 HOUR 1 tab po q am 2016 GUAIFENESIN ER 600 MG ORAL TABLET EXTENDED RELEASE 12 HOUR GUAIFENESIN Inactive CYCLOBENZAPRINE HCL 10 MG ORAL TABLET 1 po TID PRN muscle spasm/pain for 10 days CYCLOBENZAPRINE HCL 10 MG ORAL TABLET 722137 CYCLOBENZAPRINE HCL Inactive TOPIRAMATE 50 MG ORAL TABLET take 1 tab po BID for migraines. TOPIRAMATE 50 MG ORAL TABLET 158659 TOPIRAMATE Inactive PREDNISONE 20 MG ORAL TABLET two tabs by mouth today, then one tab by mouth days two and three PREDNISONE 20 MG ORAL TABLET 395309 PREDNISONE Inactive TOPROL XL 200 MG ORAL TABLET EXTENDED RELEASE 24 HOUR Take one by mouth daily TOPROL XL 200 MG ORAL TABLET EXTENDED RELEASE 24 HOUR METOPROLOL SUCCINATE Inactive CYCLOBENZAPRINE HCL 10 MG ORAL TABLET 1 tablet by mouth three times daily as needed for muscle spasm/pain CYCLOBENZAPRINE HCL 10 MG ORAL TABLET 290946 CYCLOBENZAPRINE HCL Inactive TOPIRAMATE 50 MG ORAL TABLET 1 po BID for migraines TOPIRAMATE 50 MG ORAL TABLET 850894 TOPIRAMATE Inactive TEMAZEPAM 15 MG ORAL CAPSULE 1 TAB PO Q HS TEMAZEPAM 15 MG ORAL CAPSULE 707098 TEMAZEPAM Inactive IMDUR 60 MG ORAL TABLET EXTENDED RELEASE 24 HOUR take 1 tab po qday for blood pressure IMDUR 60 MG ORAL TABLET EXTENDED RELEASE 24 HOUR ISOSORBIDE MONONITRATE Inactive [id number] 0.3 MG/24HR TRANSDERMAL PATCH WEEKLY apply 2 patches q week for HTN [id number] 0.3 MG/24HR TRANSDERMAL PATCH WEEKLY 726023 CLONIDINE HCL Inactive ZITHROMAX 250 MG ORAL TABLET 2 po today, then 1 po q days 2-5 ZITHROMAX 250 MG ORAL TABLET 512675 AZITHROMYCIN Inactive TERBINAFINE HCL 250 MG ORAL TABLET 1 tab po qday for foot infection TERBINAFINE HCL 250 MG ORAL TABLET 985706 TERBINAFINE HCL Inactive KEFLEX 500 MG ORAL CAPSULE 1 po TID x 10 days KEFLEX 500 MG ORAL CAPSULE 912634 CEPHALEXIN Inactive BACTRIM DS 800-160 MG ORAL TABLET 1 tab by mouth twice daily 2015 BACTRIM DS 800-160 MG ORAL TABLET 571321 TRIMETHOPRIM- SULFAMETHOXAZOLE Inactive PREDNISONE 20 MG ORAL TABLET take 3 tabs daily for 3 days, 2 tabs daily for 3 days, 1 tab daily for 3 days, 1/2 tab daily for 4 days PREDNISONE 20 MG ORAL TABLET 031156 PREDNISONE Inactive AZITHROMYCIN 250 MG ORAL TABLET 2 po qd x 1 day, then 1 po qd x 4 days 09/20 AZITHROMYCIN 250 MG ORAL TABLET 617986 AZITHROMYCIN Inactive SINGULAIR 10 MG ORAL TABLET 1 po qday for allergies. SINGULAIR 10 MG ORAL TABLET 586086 MONTELUKAST SODIUM Inactive Advance Directives Directive Description [...] AUTO - Chemistry sodium, serum 142 mmol/L 193-513 4695/07/17 carbon dioxide, venous blood 28.2 mmol/L 21.0-32.0 [...] % 11.0-15.0 platelet count 185 THOUSAND/UL 10*3/mm3 747-678 3750/04/14 mean platelet volume 10.9 fL 7.5-12.5 Lab Report: HGBA1C, Basic Metabolic Panel - Chemistry hemoglobin A1C, blood, as % of total hemoglobin 6.9 % 4.3-6.0 sodium, serum 139 mmol/L 496-002 5396/01/04 potassium, serum 3.9 mmol/L 3.5-5.2 chloride, serum 103 mmol/L 98-107 carbon dioxide, venous blood 26.9 mmol/L 21.0-32.0 blood glucose 106 mg/dL 65-110 calcium, serum 9.0 mg/dL 8.5-10.1 urea nitrogen, blood 20 mg/dL 7-18 creatinine, serum 1.46 mg/dL 0.60-1.30 Lab Report: LIPID PANEL, TSH/899, T4, FREE/866 - Chemistry cholesterol, serum 220 mg/dL 503-053 7386/04/14 HDL cholesterol, serum 30 mg/dL > OR=40 [...] 1.80 ng/mL 0.00-4.00 Lab Report: VITAMIN D, 25-HYDROXY/53896 - Chemistry vitamin D 25-hydroxy, serum 25 ng/mL 30-100 Office Visit: Confusion, dizziness after fall - Basic LDL target level 130 mg/dL Office Visit: Confusion, dizziness after fall - Chemistry HDL cholesterol, serum, target level 40 mg/dL triglyceride, target level 150 mg/dL cholesterol, target level 200 mg/dL Encounters Code Encounter Date Provider Facility CPT-15133 Level 4 Est. Patient 09:50:01 HEAD TURBINE OPERATOR Robbie Busby MD [facility] CPT-49169 Level 4 Est. Patient 09:42:08 HEAD TURBINE OPERATOR Robbie Busby MD [facility] CPT-66433 Level 4 Est. Patient 13:07:39 HEAD TURBINE OPERATOR Robbie Busby MD [facility] CPT-19194 Level 4 Est. Patient 15:23:44 HEAD TURBINE OPERATOR Desmond Diaz DO [facility] CPT-10064 Level 3 Est. Patient 15:40:49 CDT Robbie Busby MD [facility] CPT-82640 Level 4 Est. Patient 15:18:19 CDT Robbie Busby MD [facility] CPT-85716 Level 3 Est. Patient 09:00:37 CDT Rober Rodríguez [facility] CPT-08302 Level 3 Est. Patient 16:07:10 CDT Robbie Busby MD [facility] CPT-43035 Level 4 Est. Patient 11:56:16 CDT Erin Mai [facility] CPT-26987 Level 3 Est. Patient 17:48:02 CDT Robbie Busby MD [facility] CPT-41910 Level 4 Est. Patient 12:00:49 HEAD TURBINE OPERATOR Rober Rodríguez [facility] CPT-22837 Level 3 Est. Patient 09:16:37 CDT Robbie Busby MD [facility] CPT-67738 Level 3 Est. Patient 19:38:43 CDT Robbie Busby MD [facility] CPT-07863 Level 3 Est. Patient 11:53:38 CDT Robbie Busby MD [facility] CPT-82147 Level 4 Est. Patient 12:52:22 CDT Rober Rodríguez [facility] CPT-35346 Level 4 Est. Patient 22:55:17 CDT Robbie Busby MD [facility] CPT-93772 Level 3 Est. Patient 12:38:24 CDT Desmond Diaz DO [facility] CPT-39743 Level 4 Est. Patient 11:25:03 HEAD TURBINE OPERATOR Robbie Busby MD [facility] CPT-05496 Level 4 Est. Patient 14:50:10 CDT Robbie Busby MD [facility] CPT-47756 Level 4 Est. Patient 23:30:43 CDT Robbie Busby MD [facility] CPT-04368 Level 4 Est. Patient 10:30:43 CDT Robbie Busby MD [facility] CPT-80826 Level 3 Est. Patient 17:08:12 CDT Alex Shaw [facility] CPT-25908 Level 4 Est. Patient 17:51:38 CDT Robbie Busby MD [facility] CPT-42937 Level 4 Est. Patient 14:00:21 CDT Robbie Busby MD [facility] CPT-43863 Level 4 Est. Patient 12:46:48 CDT Robbie Busby MD [facility] CPT-67236 Level 4 Est. Patient 13:34:33 CDT Robbie Busby MD [facility] CPT-85498 Level 4 Est. Patient 16:58:28 CDT Robbie Busby MD [facility] CPT-76842 Level 3 Est. Patient 19:36:53 CDT Alex Shaw [facility] CPT-71236 Level 3 Est. Patient 12:58:15 CDT Robbie Busby MD [facility] Procedures Code Procedure Name Date Entry Date Standard Description CPT-J1071 Depo Testosterone 200mg 16:10:29 HEAD TURBINE OPERATOR CPT-30458 Abx/Therapy Injection 16:10:29 HEAD TURBINE OPERATOR CPT-J1071 Depo Testosterone 200mg 16:13:47 HEAD TURBINE OPERATOR CPT-16061 Abx/Therapy Injection 16:13:46 HEAD TURBINE OPERATOR CPT-J1071 Depo Testosterone 200mg 15:33:58 [facility] CPT-66999 Abx/Therapy Injection 15:33:58 [facility] CPT-J1071 Depo Testosterone 200mg 09:38:36 [facility] CPT-64466 Abx/Therapy Injection 09:38:36 [facility] CPT-J1071 Depo Testosterone 200mg 10:22:56 [facility] CPT-77889 Abx/Therapy Injection 10:22:56 [facility] CPT-J1071 Depo Testosterone 200mg 15:40:23 CDT CPT-88281 Abx/Therapy Injection 15:40:23 CDT CPT-J1071 Depo Testosterone 200mg 14:20:43 CDT CPT-21562 Abx/Therapy Injection 14:20:43 CDT CPT-J1071 Depo Testosterone 200mg 14:17:22 CDT CPT-43673 Abx/Therapy Injection 14:17:22 CDT CPT-J1071 Depo Testosterone 200mg 09:03:53 CDT CPT-66623 Abx/Therapy Injection 09:03:53 CDT CPT-G0439 [facility] Annual Wellness Exam 16:47:44 CDT CPT-J1071 Depo Testosterone 200mg 09:06:28 CDT CPT-34722 Abx/Therapy Injection 09:06:28 CDT CPT-J1071 Depo Testosterone 200mg 08:30:01 CDT CPT-45880 Abx/Therapy Injection 08:30:01 CDT CPT-J1071 Depo Testosterone 200mg 08:24:00 CDT CPT-64951 Abx/Therapy Injection 08:24:00 CDT CPT-37442 Venipuncture Draw Fee 14:39:06 CDT CPT-43365 Ribs unilateral 2V - XRAY USE ONLY 12:10:11 CDT CPT-42197 First Vx - Ix admin for Medicare patients 16:32:53 CDT CPT-11630 Boostrix Intramuscular Suspension 5-2.5-18.5 16:32:53 CDT CPT-34012 TB Skin Test 11:42:28 CDT CPT-31395 Tdap 7yrs or > 11:42:28 CDT CPT-J0696 Rocephin 1000 mg (Ceftriaxone) 17:43:43 HEAD TURBINE OPERATOR CPT-J1040 Depo Medrol 80 mg (Methyl Prednisolone Acetate) 17:43: 43 HEAD TURBINE OPERATOR CPT-J1100 Decadron 8mg (Dexamethasone) 17:43:42 HEAD TURBINE OPERATOR CPT-01897 Abx/Therapy Injection 17:43:42 HEAD TURBINE OPERATOR CPT-44227 Abx/Therapy Injection 17:43:42 HEAD TURBINE OPERATOR CPT-J1040 Depo Medrol 80 mg (Methyl Prednisolone Acetate) 09:43: 34 HEAD TURBINE OPERATOR CPT-J1100 Decadron 8mg (Dexamethasone) 09:43:34 HEAD TURBINE OPERATOR CPT-J0696 Rocephin 1gm Inj Solr 09:43:34 HEAD TURBINE OPERATOR CPT-83138 Wound Culture - LAB USE ONLY 14:00:21 CDT CPT-I/D I/D Abscess 09:16:37 CDT CPT-69144 Venipuncture Draw Fee 15:20:23 CDT CPT-59916 Microalbumin - LAB USE ONLY 16:02:19 CDT CPT-57456 CBC - LAB USE ONLY 16:02:19 CDT CPT-61556 Venipuncture Draw Fee 16:02:19 CDT CPT-G0438 Initial Annual Wellness Exam 08:10:28 CDT CPT-65588 Venipuncture Draw Fee 13:07:17 CDT CPT-G0008 Administration of Influenza Virus Vaccine 16:09:59 CDT CPT-27315 Fluzone Quadrivalent Intramuscular Suspension 0.5 ML 16: 09:59 CDT CPT-49459 Spec Collection and Handling Fee 15:05:50 CDT
--- OUTSIDE RECORDS SUMMARY | 2018-04-18 15:19 | XMS REPORT | Clinical Summary ---
Author Author Admin, AKUA Organization [employer] Address Unknown Phone Unavailable Allergies, Adverse Reactions, [...] muscle spasm/pain for 10 days CYCLOBENZAPRINE HCL 61240836179 Active Erin Garsia APRN Active PREDNISONE 20 MG TAB take 3 tabs daily for 3 days, 2 tabs daily for 3 days, 1 tab daily for 3 days, 1/2 tab daily for 4 days PREDNISONE 19696761854 No Longer Active Erin Garsia APRN Active CLONIDINE HCL 0.2 MG ORAL TABS 1 TAB BY MOUTH EVERY 8 HOURS 12/29 CLONIDINE HCL 65047035137 No Longer Active Erin Garsia APRN Active MECLIZINE HCL 25 MG TAB one 4 times a day as needed for dizziness MECLIZINE HCL 26036304832 No Longer Active Erin Garsia APRN Active SPIRONOLACTONE 25 MG TAB 4 tablets by mouth daily SPIRONOLACTONE 11053344830 No Longer Active Erin Garsia APRN Active LEVAQUIN 500 MG TAB 1 tablet by mouth daily for 7 days LEVOFLOXACIN 17285243371 No Longer Active Erin Garsia APRN Active BACTRIM DS 800-160 MG TAB 1 tab by mouth twice daily TRIMETHOPRIM-SULFAMETHOXAZOLE 13710610246 No Longer Active Robbie Busby MD Active HYDRALAZINE HCL 50 MG ORAL TABS TWO BY MOUTH THREE TIMES DAILY HYDRALAZINE HCL 31823455066 No Longer Active Jillina Frazell PEST CONTROL OPERATOR Active HYDROCODONE-ACETAMINOPHEN 5-325 MG TABS 1 tab by mouth BID prn back pain 2013 HYDROCODONE-ACETAMINOPHEN 87995272008 No Longer Active Jillina Frazell PEST CONTROL OPERATOR Active HYDROCHLOROTHIAZIDE TABS Take one by mouth daily HYDROCHLOROTHIAZIDE TABS 12781755912 No Longer Active Jillina Frazell PEST CONTROL OPERATOR Active LAMISIL 125 MG ORAL PACK 1 TAB PO DAILY TERBINAFINE HCL 54402358097 No Longer Active Jillina Frazell PEST CONTROL OPERATOR Active TRILEPTAL 150 MG ORAL TABS 1 TAB PO Q HS OXCARBAZEPINE 29067774787 No Longer Active Jillina Frazell PEST CONTROL OPERATOR Active BETADINE 10 % EXT SOLN wash with solution to treat follicultis POVIDONE-IODINE 99692487925 No Longer Active Jillina Frazell PEST CONTROL OPERATOR Active NYSTATIN 497369 UNIT/ML M/T SUSP 5mL po QID x 10 days NYSTATIN 48298094765 No Longer Active Erin Garsia APRN Active PREDNISONE 20 MG TAB 1 tablet twice daily for 2 days, then 1 tablet once daily for 2 days PREDNISONE 06647353353 No Longer Active Robbie Busby MD Active CEFDINIR 300 MG ORAL CAPS Take 1 cap po bid x 10 days CEFDINIR 74354165445 No Longer Active Robbie Busby MD Active AMLODIPINE BESYLATE 10 MG TABS 1 tablet by mouth daily AMLODIPINE BESYLATE 87600326153 Active Robbie Busby MD Active CARVEDILOL 25 MG TABS 1 & 1/2 TAB po BID CARVEDILOL 65088976071 Active Robbie Busby MD Active VITAMIN D3 50001 UNIT CAPS 2 CAPS PO WEEKLY CHOLECALCIFEROL 33363770261 Active Erin Garsia APRN Active NEXIUM 40 MG CPDR 1 cap by mouth daily ESOMEPRAZOLE MAGNESIUM 87139273973 Active Robbie Busby MD Active PROTONIX 40 MG SOLR 1 po qday for acid reflux PANTOPRAZOLE SODIUM 72151629981 No Longer Active Gali Negro Active KEFLEX 500 MG CAP 1 po TID x 10 days CEPHALEXIN 69930420230 No Longer Active Robbie Busby MD Active FIORICET 50-300-40 MG ORAL CAPS take 1 tab po qday prn migraines. [id number] 74339569214 Active Robbie Busby MD Active TOPIRAMATE 50 MG ORAL TABS take 1 tab po BID for migraines. TOPIRAMATE 61192275945 Active Robbie Busby MD Active TEMAZEPAM 15 MG ORAL CAPS 1 TAB PO Q HS TEMAZEPAM 89136943269 Active Robbie Busby MD Active ALPRAZOLAM 2 MG ORAL TABS 1 TAB PO BID ALPRAZOLAM 40187784624 Active Robbie Busby MD Active FENOFIBRATE 145 MG TABS Take one by mouth daily FENOFIBRATE 31217132162 No Longer Active Robbie Busby MD Active SPIRONOLACTONE 50 MG TABS 1 tablet by mouth twice a day SPIRONOLACTONE 53573331795 No Longer Active Robbie Busby MD Active HYDRALAZINE HCL 25 MG TABS 1 tablet by mouth tid for hypertension HYDRALAZINE HCL 48073616997 No Longer Active Robbie Busby MD Active VIIBRYD 40 MG TABS take 1 tab po qday for depression. VILAZODONE HCL 59586260301 No Longer Active Robbie Busby MD Active TERBINAFINE HCL 250 MG TABS 1 tab po qday for foot infection 2014 TERBINAFINE HCL 40027626789 No Longer Active Robbie Busby MD Active GABAPENTIN 300 MG CAPS 1 po q hs for nerve pain GABAPENTIN 15358947816 Active Robbie Busby MD Active FLONASE 50 MCG/ACT SUSP 1 spray each nostril twice daily for allergies and runny nose FLUTICASONE PROPIONATE 46561303118 Active Robbie Busby MD Active CHERATUSSIN AC 100-10 MG/5ML ORAL SOLN 7.5 mL PO q 4-6 hrs PRN cough GUAIFENESIN-CODEINE 74002213976 No Longer Active Robbie Busby MD Active AZITHROMYCIN 250 MG ORAL TABS 2 tablets PO today---then, 1 tablet PO daily x 4 more days (and 1 optional refill) AZITHROMYCIN 76305722600 No Longer Active Robbie Busby MD Active NORVASC 10 MG TAB 1 tablet by mouth daily AMLODIPINE BESYLATE 07265991408 No Longer Active Alex ALVAREZ Active IMDUR 60 MG TAB CR take 1 tab po qday for blood pressure ISOSORBIDE MONONITRATE Active Robbie Busby MD Active ISOSORBIDE DINITRATE 30 MG TABS Take one by mouth daily ISOSORBIDE DINITRATE 94599695134 No Longer Active Robbie Busby MD Active VIIBRYD 40 MG TABS 1 TA B PO DAILY VILAZODONE HCL 47170746914 Active Robbie Busby MD Active LORATADINE 10 MG TABS 1 tablet by mouth daily for congestion and allergies. LORATADINE 19544467141 Active Robbie Busby MD Active ZITHROMAX 250 MG TAB 2 po today, then 1 po q days 2-5 AZITHROMYCIN 88162082615 No Longer Active Robbie Busby MD Active WEUCETFD-UTG-4 0.3 MG/24HR PTWK apply 2 patches q week for HTN CLONIDINE HCL 79096633333 Active Robbie Busby MD Active NITROSTAT 0.4 MG SUBL PRN NITROGLYCERIN 66592258900 Active Robbie Busby MD Active DOXAZOSIN MESYLATE 4 MG TABS Take one by mouth daily DOXAZOSIN MESYLATE 88467045286 Active Erin Garsia PEST CONTROL OPERATOR Active TOPROL XL 200 MG [id number] Take one by mouth daily METOPROLOL SUCCINATE 47427022616 Active Robbie Busby MD Active VENLAFAXINE HCL ER 150 MG [id number] Take one by mouth daily VENLAFAXINE HCL 90273695252 Active Robbie Busby MD Active LIPITOR 40 MG TABS Take one by mouth daily ATORVASTATIN CALCIUM 70121916679 Active Robbie Busby MD Active ISOSORBIDE DINITRATE 30 MG TABS Take one by mouth daily ISOSORBIDE DINITRATE 30 MG TABS 130429 ISOSORBIDE DINITRATE Inactive NORVASC 10 MG TAB 1 tablet by mouth daily NORVASC 10 MG TAB 444862 AMLODIPINE BESYLATE Inactive AZITHROMYCIN 250 MG ORAL TABS 2 tablets PO today---then, 1 tablet PO daily x 4 more days (and 1 optional refill) AZITHROMYCIN 250 MG ORAL TABS 1133649 AZITHROMYCIN Inactive CHERATUSSIN AC 100-10 MG/5ML ORAL SOLN 7.5 mL PO q 4-6 hrs PRN cough CHERATUSSIN AC 100-10 MG/5ML ORAL SOLN 128142 GUAIFENESIN- CODEINE Inactive VIIBRYD 40 MG TABS take 1 tab po qday for depression. VIIBRYD 40 MG TABS VILAZODONE HCL Inactive HYDRALAZINE HCL 25 MG TABS 1 tablet by mouth tid for hypertension HYDRALAZINE HCL 25 MG TABS 136223 HYDRALAZINE HCL Inactive SPIRONOLACTONE 50 MG TABS 1 tablet by mouth twice a day SPIRONOLACTONE 50 MG TABS 469371 SPIRONOLACTONE Inactive FENOFIBRATE 145 MG TABS Take one by mouth daily FENOFIBRATE 145 MG TABS 983075 FENOFIBRATE Inactive PROTONIX 40 MG SOLR 1 po qday for acid reflux PROTONIX 40 MG SOLR 821882 PANTOPRAZOLE SODIUM Inactive CEFDINIR 300 MG ORAL CAPS Take 1 cap po bid x 10 days CEFDINIR 300 MG ORAL CAPS 416699 CEFDINIR Inactive PREDNISONE 20 MG TAB 1 tablet twice daily for 2 days, then 1 tablet once daily for 2 days PREDNISONE 20 MG TAB 054956 PREDNISONE Inactive NYSTATIN 580331 UNIT/ML M/T SUSP 5mL po QID x 10 days NYSTATIN 762586 UNIT/ML M/T SUSP 595549 NYSTATIN Inactive BETADINE 10 % EXT SOLN wash with solution to treat follicultis BETADINE 10 % EXT SOLN 1970253 POVIDONE-IODINE Inactive TRILEPTAL 150 MG ORAL TABS 1 TAB PO Q HS TRILEPTAL 150 MG ORAL TABS 695294 OXCARBAZEPINE Inactive LAMISIL 125 MG ORAL PACK 1 TAB PO DAILY LAMISIL 125 MG ORAL PACK TERBINAFINE HCL Inactive HYDROCHLOROTHIAZIDE TABS Take one by mouth daily HYDROCHLOROTHIAZIDE TABS HYDROCHLOROTHIAZIDE TABS Inactive HYDROCODONE-ACETAMINOPHEN 5-325 MG TABS 1 tab by mouth BID prn back pain 2013 HYDROCODONE-ACETAMINOPHEN 5-325 MG TABS 316563 HYDROCODONE -ACETAMINOPHEN Inactive HYDRALAZINE HCL 50 MG ORAL TABS TWO BY MOUTH THREE TIMES DAILY HYDRALAZINE HCL 50 MG ORAL TABS 170745 HYDRALAZINE HCL Inactive LEVAQUIN 500 MG TAB 1 tablet by mouth daily for 7 days LEVAQUIN 500 MG TAB 317650 LEVOFLOXACIN Inactive SPIRONOLACTONE 25 MG TAB 4 tablets by mouth daily SPIRONOLACTONE 25 MG TAB 709086 SPIRONOLACTONE Inactive MECLIZINE HCL 25 MG TAB one 4 times a day as needed for dizziness MECLIZINE HCL 25 MG TAB 234932 MECLIZINE HCL Inactive CLONIDINE HCL 0.2 MG ORAL TABS 1 TAB BY MOUTH EVERY 8 HOURS 12/29 CLONIDINE HCL 0.2 MG ORAL TABS 700484 CLONIDINE HCL Inactive ZITHROMAX 250 MG TAB 2 po today, then 1 po q days 2-5 ZITHROMAX 250 MG TAB 1549410 AZITHROMYCIN Inactive TERBINAFINE HCL 250 MG TABS 1 tab po qday for foot infection 2014 TERBINAFINE HCL 250 MG TABS 234074 TERBINAFINE HCL Inactive KEFLEX 500 MG CAP 1 po TID x 10 days KEFLEX 500 MG CAP 430174 CEPHALEXIN Inactive BACTRIM DS 800-160 MG TAB 1 tab by mouth twice daily BACTRIM DS 800-160 MG TAB 170128 TRIMETHOPRIM-SULFAMETHOXAZOLE Inactive PREDNISONE 20 MG TAB take 3 tabs daily for 3 days, 2 tabs daily for 3 days, 1 tab daily for 3 days, 1/2 tab daily for 4 days PREDNISONE 20 MG TAB 063926 PREDNISONE Inactive Advance Directives Directive Description Start [...] % 11.0-15.0 platelet count 185 THOUSAND/UL 10*3/mm3 000-360 6481/04/14 mean platelet volume 10.9 fL 7.5-12.5 Lab Report: HEPATITIS B SAB/Immune Status, RUBELLA IGG AB(Immune Status) - Serology rubella antibody, serum, IgG 2.06 Lab Report: LIPID PANEL, TSH/899, T4, FREE/866 - Chemistry cholesterol, serum 220 mg/dL 387-309 4998/04/14 HDL cholesterol, serum 30 mg/dL > OR=40 triglyceride, serum, fasting 466 mg/dL <150 LDL cholesterol, serum SEE NOTE mg/dL (calc) mg/dL <130 cholesterol/HDL ratio, serum 7.3 (calc) < OR=5.0 Lab Report: MICROALB/CREAT W/RATIO - Chemistry albumin/creatinine ratio, urine < 30 mg/g mg/g{creat} 0-29 Lab Report: MICROALB/CREAT W/RATIO - Lab microalbumin, urine 80 0-19 Lab Report: VITAMIN D, 25-HYDROXY/26109 - Chemistry vitamin D 25-hydroxy, serum 23 ng/mL 30-100 Encounters Code Encounter Date Provider Facility CPT-84674 Level 3 Est. Patient 17:48:02 CDT Robbie Busby MD [facility]-90150 Level 4 Est. Patient 12:00:49 CORRECTIONS IDENTIFICATION TECHNICIAN Rober Rodríguez [facility] CPT-80936 Level 3 Est. Patient 09:16:37 CDT Robbie Busby MD [facility]-34355 Level 3 Est. Patient 19:38:43 CDT Robbie Busby MD [facility]-85553 Level 3 Est. Patient 11:53:38 CDT Robbie Busby MD [facility]-58524 Level 4 Est. Patient 12:52:22 CDT Robre Rodríguez [facility]-59411 Level 4 Est. Patient 22:55:17 CDT Robbie Busby MD [facility] CPT-45137 Level 3 Est. Patient 12:38:24 CDT Desmond Diaz DO [facility] CPT-31146 Level 4 Est. Patient 11:25:03 CORRECTIONS IDENTIFICATION TECHNICIAN Robbie Busby MD [facility] CPT-74146 Level 4 Est. Patient 14:50:10 CDT Robbie Busby MD [facility] CPT-31671 Level 4 Est. Patient 23:30:43 CDT Robbie Busby MD [facility] CPT-75971 Level 4 Est. Patient 10:30:43 CDT Robbie Busby MD [facility] CPT-27335 Level 3 Est. Patient 17:08:12 CDT Alex ALVAREZ [facility] CPT-27989 Level 4 Est. Patient 17:51:38 CDT Robbie Busby MD [facility]-69084 Level 4 Est. Patient 14:00:21 CDT Robbie Busby MD [facility] CPT-45769 Level 4 Est. Patient 12:46:48 CDT Robbie Busby MD [facility] CPT-98896 Level 4 Est. Patient 13:34:33 CDT Robbie Busby MD [facility] CPT-36013 Level 4 Est. Patient 16:58:28 CDT Robbie Busby MD [facility] CPT-51572 Level 3 Est. Patient 19:36:53 CDT Alex ALVAREZ [facility] CPT-57156 Level 3 Est. Patient 12:58:15 CDT Robbie Busby MD [facility] Procedures Code Procedure Name Date Entry Date Standard Description CPT-J0696 Rocephin 1000 mg (Ceftriaxone) 17:43:43 CORRECTIONS IDENTIFICATION TECHNICIAN CPT-J1040 Depo Medrol 80 mg (Methyl Prednisolone Acetate) 17:43: 43 CORRECTIONS IDENTIFICATION TECHNICIAN CPT-J1100 Decadron 8mg (Dexamethasone) 17:43:42 CORRECTIONS IDENTIFICATION TECHNICIAN CPT-12436 Abx/Therapy Injection 17:43:42 CORRECTIONS IDENTIFICATION TECHNICIAN CPT-61477 Abx/Therapy Injection 17:43:42 CORRECTIONS IDENTIFICATION TECHNICIAN CPT-J1040 Depo Medrol 80 mg (Methyl Prednisolone Acetate) 09:43: 34 CORRECTIONS IDENTIFICATION TECHNICIAN CPT-J1100 Decadron 8mg (Dexamethasone) 09:43:34 CORRECTIONS IDENTIFICATION TECHNICIAN CPT-J0696 Rocephin 1gm Inj Solr 09:43:34 CORRECTIONS IDENTIFICATION TECHNICIAN CPT-08261 Wound Culture - LAB USE ONLY 14:00:21 CDT CPT-I/D I/D Abscess 09:16:37 CDT CPT-11355 Venipuncture Draw Fee 15:20:23 CDT CPT-10948 Microalbumin - LAB USE ONLY 16:02:19 CDT CPT-09855 CBC - LAB USE ONLY 16:02:19 CDT CPT-28073 Venipuncture Draw Fee 16:02:19 CDT CPT-G0438 Initial Annual Wellness Exam 08:10:28 CDT CPT-78657 Venipuncture Draw Fee 13:07:17 CDT CPT-G0008 Administration of Influenza Virus Vaccine 16:09:59 CDT CPT-97684 Fluzone Quadrivalent Intramuscular Suspension 0.5 ML 16: 09:59 CDT CPT-94366 Spec Collection and Handling Fee 15:05:50 CDT
--- OUTSIDE RECORDS SUMMARY | 2018-04-18 15:20 | XMS REPORT | Clinical Summary ---
Author Author Admin, [employer] Organization [employer] Address Unknown Phone Unavailable Allergies, Adverse Reactions, [...] unspecified sites URI 465.9 Active Rober Rodríguez [employer] Acute upper respiratory infections of unspecified site [...] tab po 3 times qd. OXYCODONE HCL 22480359528 Active Robbie Busby MD Active NITROSTAT 0.4 MG SUBL PRN NITROGLYCERIN 20202624849 No Longer Active Robbie Busby MD Active LORATADINE 10 MG TABS 1 tablet by mouth daily for congestion and allergies. LORATADINE 82477903425 No Longer Active Robbie Busby MD Active FLONASE 50 MCG/ACT SUSP 1 spray each nostril twice daily for allergies and runny nose FLUTICASONE PROPIONATE 92814464754 No Longer Active Robbie Busby MD Active FIORICET 50-300-40 MG ORAL CAPS take 1 tab po qday prn migraines. [id number] No Longer Active Robbie Busby MD Active VITAMIN D3 61165 UNIT CAPS 2 CAPS PO WEEKLY CHOLECALCIFEROL 65648634721 No Longer Active Robbie Busby MD Active CYCLOBENZAPRINE HCL 10 MG TABS 1 tablet by mouth three times daily as needed for muscle spasm/pain for 10 days CYCLOBENZAPRINE HCL 12860409404 No Longer Active Robbie Busby MD Active PREDNISONE 20 MG TAB take 3 tabs daily for 3 days, 2 tabs daily for 3 days, 1 tab daily for 3 days, 1/2 tab daily for 4 days PREDNISONE 96340962619 No Longer Active Erin Garsia APRN Active CLONIDINE HCL 0.2 MG ORAL TABS 1 TAB BY MOUTH EVERY 8 HOURS 12/29 CLONIDINE HCL 19789038719 No Longer Active Erin Garsia APRN Active MECLIZINE HCL 25 MG TAB one 4 times a day as needed for dizziness MECLIZINE HCL 51880076645 No Longer Active Erin Garsia APRN Active SPIRONOLACTONE 25 MG TAB 4 tablets by mouth daily SPIRONOLACTONE 43629980002 No Longer Active Erin Garsia APRN Active LEVAQUIN 500 MG TAB 1 tablet by mouth daily for 7 days LEVOFLOXACIN 25608581810 No Longer Active Erin Garsia APRN Active BACTRIM DS 800-160 MG TAB 1 tab by mouth twice daily TRIMETHOPRIM-SULFAMETHOXAZOLE 96311847462 No Longer Active Robbie Busby MD Active HYDRALAZINE HCL 50 MG ORAL TABS TWO BY MOUTH THREE TIMES DAILY HYDRALAZINE HCL 35237273089 No Longer Active Rober Rodríguez APRN Active HYDROCODONE-ACETAMINOPHEN 5-325 MG TABS 1 tab by mouth BID prn back pain 2013 HYDROCODONE-ACETAMINOPHEN 96939130456 No Longer Active Rober Rodríguez APRN Active HYDROCHLOROTHIAZIDE TABS Take one by mouth daily HYDROCHLOROTHIAZIDE TABS 14492655596 No Longer Active Rober Rodríguez APRN Active LAMISIL 125 MG ORAL PACK 1 TAB PO DAILY TERBINAFINE HCL 23679987012 No Longer Active Jillina Franeha [employer] Active TRILEPTAL 150 MG ORAL TABS 1 TAB PO Q HS OXCARBAZEPINE 58715903874 No Longer Active Jillina Frazell [employer] Active BETADINE 10 % EXT SOLN wash with solution to treat follicultis POVIDONE-IODINE 89333688986 No Longer Active Jillina Frazell [employer] Active NYSTATIN 294181 UNIT/ML M/T SUSP 5mL po QID x 10 days NYSTATIN 05886251786 No Longer Active Erin Garsia APRN Active PREDNISONE 20 MG TAB 1 tablet twice daily for 2 days, then 1 tablet once daily for 2 days PREDNISONE 63238098016 No Longer Active Robbie Busby MD Active CEFDINIR 300 MG ORAL CAPS Take 1 cap po bid x 10 days CEFDINIR 25578431051 No Longer Active Robbie Busby MD Active AMLODIPINE BESYLATE 10 MG TABS 1 tablet by mouth daily AMLODIPINE BESYLATE 06821179524 Active Robbie Busby MD Active CARVEDILOL 25 MG TABS 1 & 1/2 TAB po BID CARVEDILOL 09144033387 Active Robbie Busby MD Active NEXIUM 40 MG CPDR 1 cap by mouth daily ESOMEPRAZOLE MAGNESIUM 93319875456 Active Robbie Busby MD Active PROTONIX 40 MG SOLR 1 po qday for acid reflux PANTOPRAZOLE SODIUM 51275806892 No Longer Active Gali Raida Active KEFLEX 500 MG CAP 1 po TID x 10 days CEPHALEXIN 20102943956 No Longer Active Robbie Busby MD Active TOPIRAMATE 50 MG ORAL TABS take 1 tab po BID for migraines. TOPIRAMATE 37328866827 Active Robbie Busby MD Active TEMAZEPAM 15 MG ORAL CAPS 1 TAB PO Q HS TEMAZEPAM 12567816201 Active Robbie Busby MD Active ALPRAZOLAM 2 MG ORAL TABS 1 TAB PO BID ALPRAZOLAM 94715973572 Active Robbie Busby MD Active FENOFIBRATE 145 MG TABS Take one by mouth daily FENOFIBRATE 91829672548 No Longer Active Robbie Busby MD Active SPIRONOLACTONE 50 MG TABS 1 tablet by mouth twice a day SPIRONOLACTONE 69438754645 No Longer Active Robbie Busby MD Active HYDRALAZINE HCL 25 MG TABS 1 tablet by mouth tid for hypertension HYDRALAZINE HCL 23949136467 No Longer Active Robbie Busby MD Active VIIBRYD 40 MG TABS take 1 tab po qday for depression. VILAZODONE HCL 08338024569 No Longer Active Robbie Busby MD Active TERBINAFINE HCL 250 MG TABS 1 tab po qday for foot infection 2014 TERBINAFINE HCL 24210715387 No Longer Active Robbie Busby MD Active GABAPENTIN 300 MG CAPS 1 po q hs for nerve pain GABAPENTIN 29577632074 Active Robbie Busby MD Active CHERATUSSIN AC 100-10 MG/5ML ORAL SOLN 7.5 mL PO q 4-6 hrs PRN cough GUAIFENESIN-CODEINE 74812285591 No Longer Active Robbie Busby MD Active AZITHROMYCIN 250 MG ORAL TABS 2 tablets PO today---then, 1 tablet PO daily x 4 more days (and 1 optional refill) AZITHROMYCIN 76206201033 No Longer Active Robbie Busby MD Active NORVASC 10 MG TAB 1 tablet by mouth daily AMLODIPINE BESYLATE 76564101148 No Longer Active Alex ALVAREZ Active IMDUR 60 MG TAB CR take 1 tab po qday for blood pressure ISOSORBIDE MONONITRATE Active Robbie Busby MD Active ISOSORBIDE DINITRATE 30 MG TABS Take one by mouth daily ISOSORBIDE DINITRATE 22101938208 No Longer Active Robbie Busby MD Active VIIBRYD 40 MG TABS 1 TA B PO DAILY VILAZODONE HCL 13584285623 Active Robbie Busby MD Active ZITHROMAX 250 MG TAB 2 po today, then 1 po q days 2-5 AZITHROMYCIN 98412467047 No Longer Active Robbie Busby MD Active [id number] 0.3 MG/24HR PTWK apply 2 patches q week for HTN CLONIDINE HCL 91577118824 Active Robbie Busby MD Active DOXAZOSIN MESYLATE 4 MG TABS Take one by mouth daily DOXAZOSIN MESYLATE 05629922672 Active Robbie Busby MD Active TOPROL XL 200 MG [id number]-[id number] Take one by mouth daily METOPROLOL SUCCINATE 31945427617 Active Robbie Busby MD Active VENLAFAXINE HCL ER 150 MG DL95W-WSA Take one by mouth daily VENLAFAXINE HCL 68932492727 Active Robbie Busby MD Active LIPITOR 40 MG TABS Take one by mouth daily ATORVASTATIN CALCIUM 13037704522 Active Robbie Busby MD Active ISOSORBIDE DINITRATE 30 MG TABS Take one by mouth daily ISOSORBIDE DINITRATE 30 MG TABS 641802 ISOSORBIDE DINITRATE Inactive NORVASC 10 MG TAB 1 tablet by mouth daily NORVASC 10 MG TAB 423175 AMLODIPINE BESYLATE Inactive AZITHROMYCIN 250 MG ORAL TABS 2 tablets PO today---then, 1 tablet PO daily x 4 more days (and 1 optional refill) AZITHROMYCIN 250 MG ORAL TABS 4416057 AZITHROMYCIN Inactive CHERATUSSIN AC 100-10 MG/5ML ORAL SOLN 7.5 mL PO q 4-6 hrs PRN cough CHERATUSSIN AC 100-10 MG/5ML ORAL SOLN 810002 GUAIFENESIN- CODEINE Inactive VIIBRYD 40 MG TABS take 1 tab po qday for depression. VIIBRYD 40 MG TABS VILAZODONE HCL Inactive HYDRALAZINE HCL 25 MG TABS 1 tablet by mouth tid for hypertension HYDRALAZINE HCL 25 MG TABS 645832 HYDRALAZINE HCL Inactive SPIRONOLACTONE 50 MG TABS 1 tablet by mouth twice a day SPIRONOLACTONE 50 MG TABS 517958 SPIRONOLACTONE Inactive FENOFIBRATE 145 MG TABS Take one by mouth daily FENOFIBRATE 145 MG TABS 706342 FENOFIBRATE Inactive PROTONIX 40 MG SOLR 1 po qday for acid reflux PROTONIX 40 MG SOLR 290512 PANTOPRAZOLE SODIUM Inactive CEFDINIR 300 MG ORAL CAPS Take 1 cap po bid x 10 days CEFDINIR 300 MG ORAL CAPS 519448 CEFDINIR Inactive PREDNISONE 20 MG TAB 1 tablet twice daily for 2 days, then 1 tablet once daily for 2 days PREDNISONE 20 MG TAB 376838 PREDNISONE Inactive NYSTATIN 739257 UNIT/ML M/T SUSP 5mL po QID x 10 days NYSTATIN 921599 UNIT/ML M/T SUSP 217814 NYSTATIN Inactive BETADINE 10 % EXT SOLN wash with solution to treat follicultis BETADINE 10 % EXT SOLN 8659681 POVIDONE-IODINE Inactive TRILEPTAL 150 MG ORAL TABS 1 TAB PO Q HS TRILEPTAL 150 MG ORAL TABS 331031 OXCARBAZEPINE Inactive LAMISIL 125 MG ORAL PACK 1 TAB PO DAILY LAMISIL 125 MG ORAL PACK TERBINAFINE HCL Inactive HYDROCHLOROTHIAZIDE TABS Take one by mouth daily HYDROCHLOROTHIAZIDE TABS HYDROCHLOROTHIAZIDE TABS Inactive HYDROCODONE-ACETAMINOPHEN 5-325 MG TABS 1 tab by mouth BID prn back pain 2013 HYDROCODONE-ACETAMINOPHEN 5-325 MG TABS 296155 HYDROCODONE -ACETAMINOPHEN Inactive HYDRALAZINE HCL 50 MG ORAL TABS TWO BY MOUTH THREE TIMES DAILY HYDRALAZINE HCL 50 MG ORAL TABS 343493 HYDRALAZINE HCL Inactive LEVAQUIN 500 MG TAB 1 tablet by mouth daily for 7 days LEVAQUIN 500 MG TAB 400370 LEVOFLOXACIN Inactive SPIRONOLACTONE 25 MG TAB 4 tablets by mouth daily SPIRONOLACTONE 25 MG TAB 832470 SPIRONOLACTONE Inactive MECLIZINE HCL 25 MG TAB one 4 times a day as needed for dizziness MECLIZINE HCL 25 MG TAB 372215 MECLIZINE HCL Inactive CLONIDINE HCL 0.2 MG ORAL TABS 1 TAB BY MOUTH EVERY 8 HOURS 12/29 CLONIDINE HCL 0.2 MG ORAL TABS 981160 CLONIDINE HCL Inactive CYCLOBENZAPRINE HCL 10 MG TABS 1 tablet by mouth three times daily as needed for muscle spasm/pain for 10 days CYCLOBENZAPRINE HCL 10 MG TABS 834594 CYCLOBENZAPRINE HCL Inactive VITAMIN D3 24033 UNIT CAPS 2 CAPS PO WEEKLY VITAMIN D3 92646 UNIT CAPS CHOLECALCIFEROL Inactive FIORICET 50-300-40 MG ORAL CAPS take 1 tab po qday prn migraines. FIORICET 50-300-40 MG ORAL CAPS 563068 [id number] Inactive FLONASE 50 MCG/ACT SUSP 1 spray each nostril twice daily for allergies and runny nose FLONASE 50 MCG/ACT SUSP 5609614 FLUTICASONE PROPIONATE Inactive LORATADINE 10 MG TABS 1 tablet by mouth daily for congestion and allergies. LORATADINE 10 MG TABS 511673 LORATADINE Inactive NITROSTAT 0.4 MG SUBL PRN NITROSTAT 0.4 MG SUBL 124744 NITROGLYCERIN Inactive ZITHROMAX 250 MG TAB 2 po today, then 1 po q days 2-5 ZITHROMAX 250 MG TAB 7636859 AZITHROMYCIN Inactive TERBINAFINE HCL 250 MG TABS 1 tab po qday for foot infection 2014 TERBINAFINE HCL 250 MG TABS 325006 TERBINAFINE HCL Inactive KEFLEX 500 MG CAP 1 po TID x 10 days KEFLEX 500 MG CAP 899672 CEPHALEXIN Inactive BACTRIM DS 800-160 MG TAB 1 tab by mouth twice daily BACTRIM DS 800-160 MG TAB 251818 TRIMETHOPRIM-SULFAMETHOXAZOLE Inactive PREDNISONE 20 MG TAB take 3 tabs daily for 3 days, 2 tabs daily for 3 days, 1 tab daily for 3 days, 1/2 tab daily for 4 days PREDNISONE 20 MG TAB 857544 PREDNISONE Inactive Advance Directives Directive Description Start [...] % 11.6-14.8 platelet count 229 10^3/MM^3 10*3/mm3 700-356 5392/09/06 hemoglobin, blood 14.4 g/dL 13.5-17.5 erythrocyte (RBC) count 4.72 10^6/MM^3 10*6/mm3 4.69-6.13 leukocyte count, blood 9.7 10^3/MM^3 10*3/mm3 4.6-10.2 Lab Report: CBC-QUEST, COMPREHENSIVE METABOLIC PANEL - Hematology leukocyte count, blood 10.1 THOUSAND/UL 10*3/mm3 3.8-10.8 mean corpuscular hemoglobin concentration, RBC 33.1 G/DL % 32.0- 36.0 red blood cell distribution width 15.8 % 11.0-15.0 platelet count 185 THOUSAND/UL 10*3/mm3 595-015 3364/04/14 mean platelet volume 10.9 fL 7.5-12.5 erythrocyte (RBC) count 4.64 MILLION/UL 10*6/mm3 4.20-5.80 hemoglobin, blood 13.9 g/dL 13.2-17.1 hematocrit, blood 42.0 % 38.5-50.0 mean corpuscular volume, RBC 90.5 fL 80.0-100.0 mean corpuscular hemoglobin, RBC 29.9 pg 27.0-33.0 Lab Report: LIPID PANEL, TSH/899, T4, FREE/866 - Chemistry cholesterol, serum 220 mg/dL 224-711 4706/04/14 HDL cholesterol, serum 30 mg/dL > OR=40 [...] mg/dL Encounters Code Encounter Date Provider Facility CPT-25347 Level 3 Est. Patient 16:07:10 CDT Robbie Busby MD [facility] CPT-60977 Level 4 Est. Patient 11:56:16 CDT Erin Garsia [facility] CPT-05342 Level 3 Est. Patient 17:48:02 CDT Robbie Busby MD [facility] CPT-66080 Level 4 Est. Patient 12:00:49 [employer] Rober Rodríguez [facility] CPT-31593 Level 3 Est. Patient 09:16:37 CDT Robbie Busby MD [facility] CPT-18985 Level 3 Est. Patient 19:38:43 CDT Robbie Busby MD [facility] CPT-88706 Level 3 Est. Patient 11:53:38 CDT Robbie Busby MD [facility] CPT-26661 Level 4 Est. Patient 12:52:22 CDT Rober Rodríguez [facility] CPT-05110 Level 4 Est. Patient 22:55:17 CDT Robbie Busby MD [facility] CPT-20631 Level 3 Est. Patient 12:38:24 CDT Desmond Diaz DO [facility] CPT-90202 Level 4 Est. Patient 11:25:03 [employer] Robbie Busby MD [facility] CPT-02250 Level 4 Est. Patient 14:50:10 CDT Robbie Busby MD [facility] CPT-52725 Level 4 Est. Patient 23:30:43 CDT Robbie Busby MD [facility] CPT-21827 Level 4 Est. Patient 10:30:43 CDT Robbie Busby MD [facility] CPT-51549 Level 3 Est. Patient 17:08:[address] [facility] CPT-45105 Level 4 Est. Patient 17:51:38 CDT Robbie Busby MD [facility] CPT-61579 Level 4 Est. Patient 14:00:21 CDT Robbie Busby MD [facility] CPT-84523 Level 4 Est. Patient 12:46:48 CDT Robbie Busby MD [facility] CPT-18815 Level 4 Est. Patient 13:34:33 CDT Robbie Busby MD [facility] CPT-81930 Level 4 Est. Patient 16:58:28 CDT Robbie Busby MD [facility] CPT-41720 Level 3 Est. Patient 19:36:[address] [facility] CPT-85909 Level 3 Est. Patient 12:58:15 CDT Robbie Busby MD [facility] Procedures Code Procedure Name Date Entry Date Standard Description CPT-41982 Ribs unilateral 2V - XRAY USE ONLY 12:10:11 CDT CPT-30964 First Vx - Ix admin for Medicare patients 16:32:53 CDT CPT-13315 Boostrix Intramuscular Suspension 5-2.5-18.5 16:32:53 CDT CPT-73288 TB Skin Test 11:42:28 CDT CPT-44639 Tdap 7yrs or > 11:42:28 CDT CPT-J0696 Rocephin 1000 mg (Ceftriaxone) 17:43:43 [employer] CPT-J1040 Depo Medrol 80 mg (Methyl Prednisolone Acetate) 17:43: 43 [employer] CPT-J1100 Decadron 8mg (Dexamethasone) 17:43:42 [employer] CPT-29965 Abx/Therapy Injection 17:43:42 [employer] CPT-00930 Abx/Therapy Injection 17:43:42 [employer] CPT-J1040 Depo Medrol 80 mg (Methyl Prednisolone Acetate) 09:43: 34 [employer] CPT-J1100 Decadron 8mg (Dexamethasone) 09:43:34 [employer] CPT-J0696 Rocephin 1gm Inj Solr 09:43:34 [employer] CPT-75862 Wound Culture - LAB USE ONLY 14:00:21 CDT CPT-I/D I/D Abscess 09:16:37 CDT CPT-86067 Venipuncture Draw Fee 15:20:23 CDT CPT-19136 Microalbumin - LAB USE ONLY 16:02:19 CDT CPT-65983 CBC - LAB USE ONLY 16:02:19 CDT CPT-62889 Venipuncture Draw Fee 16:02:19 CDT CPT-G0438 Initial Annual Wellness Exam 08:10:28 CDT CPT-00692 Venipuncture Draw Fee 13:07:17 CDT CPT-G0008 Administration of Influenza Virus Vaccine 16:09:59 CDT CPT-93322 Fluzone Quadrivalent Intramuscular Suspension 0.5 ML 16: 09:59 CDT CPT-02475 Spec Collection and Handling Fee 15:05:50 CDT
--- OUTSIDE RECORDS SUMMARY | 2018-04-18 15:23 | XMS REPORT | Clinical Summary ---
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2 Active Erin Mai MEAT BUTCHER Other testicular hypofunction Low back pain, chronic [...] 37.0-37.9, adult Sinusitis ICD-461.9 Inactive Emily Atwood PIPELINE ENGINEER 2017 Low back pain, acute ICD-724.2 Inactive Emily Atwood PIPELINE ENGINEER Low back pain, chronic ICD-724.2 Inactive Emily Atwood PIPELINE ENGINEER Bronchitis, acute ICD-466.0 Inactive Emily Atwood PIPELINE ENGINEER Onychomycosis, toenails ICD-110.1 Inactive Emily Atwood PIPELINE ENGINEER Dizziness ICD-780.4 Inactive Emily Atwood PIPELINE ENGINEER 2017 Folliculitis ICD-704.8 Inactive Emily Atwood PIPELINE ENGINEER Pharyngitis-Acute ICD-462 Inactive Emily Atwood PIPELINE ENGINEER Fatigue ICD-780.79 Inactive Emily Atwood PIPELINE ENGINEER 09/20 Hypertension, secondary, malignant ICD-405.09 Inactive Emily Atwood PIPELINE ENGINEER Insect bite, infected ICD-919.5 Inactive Emily Atwood PIPELINE ENGINEER Abscess, skin ICD-682.9 Inactive Emily Atwood PIPELINE ENGINEER URI ICD-465.9 Inactive Emily Atwood PIPELINE ENGINEER Sinusitis - acute ICD-461.9 Inactive Emily Atwood PIPELINE ENGINEER Acute confusion ICD-293.0 Inactive Emily Atwood PIPELINE ENGINEER Headache ICD-784.0 Inactive Emily Rai CISSE 09/20 [...] HOUR 1 po q day ISOSORBIDE MONONITRATE 84651176624 Active Emma Hernandez Active METOPROLOL SUCCINATE ER 200 MG ORAL TABLET EXTENDED RELEASE 24 HOUR take 1 tab po qday for high blood pressure and rapid pulse METOPROLOL SUCCINATE 39656822265 Active Robbie Busby MD Active [id number]-NYF-8 0.3 MG/24HR TRANSDERMAL PATCH WEEKLY apply 2 patches q week for HTN CLONIDINE HCL 73699743321 No Longer Active Robbie Busby MD Active IMDUR 60 MG ORAL TABLET EXTENDED RELEASE 24 HOUR take 1 tab po qday for blood pressure ISOSORBIDE MONONITRATE 44819923109 No Longer Active Robbie Busby MD Active TEMAZEPAM 15 MG ORAL CAPSULE 1 TAB PO Q HS TEMAZEPAM 14424930644 No Longer Active Robbie Busby MD Active TOPIRAMATE 50 MG ORAL TABLET 1 po BID for migraines TOPIRAMATE 80681356874 No Longer Active Robbie Busby MD Active CYCLOBENZAPRINE HCL 10 MG ORAL TABLET 1 tablet by mouth three times daily as needed for muscle spasm/pain CYCLOBENZAPRINE HCL 13170369656 No Longer Active Robbie Busby MD Active TOPROL XL 200 MG ORAL TABLET EXTENDED RELEASE 24 HOUR Take one by mouth daily METOPROLOL SUCCINATE 31893361248 No Longer Active Robbie Busby MD Active METFORMIN HCL 500 MG ORAL TABLET 1 tablet by mouth daily for diabetes type 2 METFORMIN HCL 00820595993 Active Robbie Busby MD Active SINGULAIR 10 MG ORAL TABLET 1 po qday for allergies. MONTELUKAST SODIUM 64134971548 No Longer Active Robbie Busby MD Active PREDNISONE 20 MG ORAL TABLET two tabs by mouth today, then one tab by mouth days two and three PREDNISONE 68862822601 No Longer Active Robbie Busby MD Active AZITHROMYCIN 250 MG ORAL TABLET 2 po qd x 1 day, then 1 po qd x 4 days 09/20 AZITHROMYCIN 50612657602 No Longer Active Desmond Diaz DO Active TOPIRAMATE 50 MG ORAL TABLET take 1 tab po BID for migraines. TOPIRAMATE 00363235214 No Longer Active Desmond Diaz DO Active CYCLOBENZAPRINE HCL 10 MG ORAL TABLET 1 po TID PRN muscle spasm/pain for 10 days CYCLOBENZAPRINE HCL 67206007591 No Longer Active Desmond Diaz DO Active GUAIFENESIN ER 600 MG ORAL TABLET EXTENDED RELEASE 12 HOUR 1 tab po q am 2016 GUAIFENESIN 80729918539 No Longer Active Robbie Busby MD Active DIVALPROEX SODIUM ER 500 MG ORAL TABLET EXTENDED RELEASE 24 HOUR Once daily DIVALPROEX SODIUM 25312378935 Active Robbie Busby MD Active DEPO-TESTOSTERONE 200 MG/ML INTRAMUSCULAR SOLUTION 1 IM Injections every 2 weeks for low testosterone TESTOSTERONE CYPIONATE 74707098374 Active Zulema Blank LPN Active FLUTICASONE PROPIONATE 50 MCG/ACT NASAL SUSPENSION 2 sprays per nostril bid for 1 week, then 1 spray bid FLUTICASONE PROPIONATE 68952211482 Active Rober Rodríguez APRN Active HYDRALAZINE HCL 25 MG ORAL TABLET Take 1 tab BID. HYDRALAZINE HCL 64883335319 Active Rober Rodríguez APRN Active VITAMIN D3 10438 UNIT ORAL TABLET 2 po weekly CHOLECALCIFEROL 65270387843 Active Robbie Busby MD Active OXYCODONE HCL ER 10 MG ORAL TABLET ER 12 HOUR ABUSE-DETERRENT 1 tab po 3 times qd. OXYCODONE HCL 09848549613 Active Robbie Busby MD Active NITROSTAT 0.4 MG SUBLINGUAL TABLET SUBLINGUAL PRN NITROGLYCERIN 76657712647 No Longer Active Robbie Busby MD Active LORATADINE 10 MG ORAL TABLET 1 tablet by mouth daily for congestion and allergies. LORATADINE 13302438575 No Longer Active Robbie Busby MD Active FLONASE 50 MCG/ACT NASAL SUSPENSION 1 spray each nostril twice daily for allergies and runny nose FLUTICASONE PROPIONATE 11947306110 No Longer Active Robbie Busby MD Active FIORICET 50-300-40 MG ORAL CAPSULE take 1 tab po qday prn migraines. [id number] 24813396203 No Longer Active Robbie Busby MD Active VITAMIN D3 20709 UNIT ORAL CAPSULE 2 CAPS PO WEEKLY CHOLECALCIFEROL 62281339431 No Longer Active Robbie Busby MD Active CYCLOBENZAPRINE HCL 10 MG ORAL TABLET 1 tablet by mouth three times daily as needed for muscle spasm/pain for 10 days CYCLOBENZAPRINE HCL 06965925731 No Longer Active Robbie Busby MD Active PREDNISONE 20 MG ORAL TABLET take 3 tabs daily for 3 days, 2 tabs daily for 3 days, 1 tab daily for 3 days, 1/2 tab daily for 4 days PREDNISONE 49553948562 No Longer Active Erin Mai APRN Active CLONIDINE HCL 0.2 MG ORAL TABLET 1 TAB BY MOUTH EVERY 8 HOURS CLONIDINE HCL 72241265601 No Longer Active Erin Mai APRN Active MECLIZINE HCL 25 MG ORAL TABLET one 4 times a day as needed for dizziness MECLIZINE HCL 89027861603 No Longer Active Erin Mai APRN Active SPIRONOLACTONE 25 MG ORAL TABLET 4 tablets by mouth daily SPIRONOLACTONE 18143942428 No Longer Active Erin Riverall MEAT BUTCHER Active LEVAQUIN 500 MG ORAL TABLET 1 tablet by mouth daily for 7 days LEVOFLOXACIN 73595284181 No Longer Active Erin Mai MEAT BUTCHER Active BACTRIM DS 800-160 MG ORAL TABLET 1 tab by mouth twice daily 2015 TRIMETHOPRIM-SULFAMETHOXAZOLE 88555838137 No Longer Active Robbie Busby MD Active HYDRALAZINE HCL 50 MG ORAL TABLET TWO BY MOUTH THREE TIMES DAILY HYDRALAZINE HCL 64576627051 No Longer Active Jillina Frazell MEAT BUTCHER Active HYDROCODONE-ACETAMINOPHEN 5-325 MG ORAL TABLET 1 tab by mouth BID prn back pain HYDROCODONE-ACETAMINOPHEN 24483044627 No Longer Active Jillina Frazell MEAT BUTCHER Active HYDROCHLOROTHIAZIDE TABLET Take one by mouth daily HYDROCHLOROTHIAZIDE TABS 50170722925 No Longer Active Jillina Frazell MEAT BUTCHER Active LAMISIL 125 MG ORAL PACKET 1 TAB PO DAILY TERBINAFINE HCL 04599442976 No Longer Active Jillina Frazell MEAT BUTCHER Active TRILEPTAL 150 MG ORAL TABLET 1 TAB PO Q HS OXCARBAZEPINE 26543938976 No Longer Active Jillina Frazell MEAT BUTCHER Active BETADINE 10 % EXTERNAL SOLUTION wash with solution to treat follicultis 07/29 POVIDONE-IODINE 18856930075 No Longer Active Jillina Frazell MEAT BUTCHER Active NYSTATIN 267034 UNIT/ML MOUTH/THROAT SUSPENSION 5mL po QID x 10 days NYSTATIN 29634677553 No Longer Active Erin Mai MEAT BUTCHER Active PREDNISONE 20 MG ORAL TABLET 1 tablet twice daily for 2 days, then 1 tablet once daily for 2 days PREDNISONE 30682648749 No Longer Active Robbie Busby MD Active CEFDINIR 300 MG ORAL CAPSULE Take 1 cap po bid x 10 days CEFDINIR 56281387081 No Longer Active Robbie Busby MD Active AMLODIPINE BESYLATE 10 MG ORAL TABLET 1 tablet by mouth daily AMLODIPINE BESYLATE 88628667327 Active Robbie Busby MD Active CARVEDILOL 25 MG ORAL TABLET 1 & 1/2 TAB po BID CARVEDILOL 19451648724 Active Robbie Busby MD Active NEXIUM 40 MG ORAL CAPSULE DELAYED RELEASE 1 cap by mouth daily ESOMEPRAZOLE MAGNESIUM 10113855625 Active Robbie Busby MD Active PROTONIX 40 MG INTRAVENOUS SOLUTION RECONSTITUTED 1 po qday for acid reflux PANTOPRAZOLE SODIUM 73594857737 No Longer Active Galileonila Negro Active KEFLEX 500 MG ORAL CAPSULE 1 po TID x 10 days CEPHALEXIN 25013885670 No Longer Active Robbie Busby MD Active ALPRAZOLAM 2 MG ORAL TABLET 1 TAB PO BID ALPRAZOLAM 47378499072 Active Robbie Busby MD Active FENOFIBRATE 145 MG ORAL TABLET Take one by mouth daily FENOFIBRATE 02118553081 No Longer Active Robbie Busby MD Active SPIRONOLACTONE 50 MG ORAL TABLET 1 tablet by mouth twice a day SPIRONOLACTONE 65720968210 No Longer Active Robbie Busby MD Active HYDRALAZINE HCL 25 MG ORAL TABLET 1 tablet by mouth tid for hypertension 2013 HYDRALAZINE HCL 23351423958 No Longer Active Robbie Busby MD Active VIIBRYD 40 MG ORAL TABLET take 1 tab po qday for depression. 2014 VILAZODONE HCL 01777056197 No Longer Active Robbie Busby MD Active TERBINAFINE HCL 250 MG ORAL TABLET 1 tab po qday for foot infection TERBINAFINE HCL 27546249118 No Longer Active Robbie Busby MD Active GABAPENTIN 300 MG ORAL CAPSULE 1 po q hs for nerve pain GABAPENTIN 39527849490 Active Robbie Busby MD Active CHERATUSSIN AC 100-10 MG/5ML ORAL SOLUTION 7.5 mL PO q 4-6 hrs PRN cough 2014 GUAIFENESIN-CODEINE 55953407898 No Longer Active Robbie Busby MD Active AZITHROMYCIN 250 MG ORAL TABLET 2 tablets PO today---then, 1 tablet PO daily x 4 more days (and 1 optional refill) AZITHROMYCIN 09058002126 No Longer Active Robbie Busby MD Active NORVASC 10 MG ORAL TABLET 1 tablet by mouth daily AMLODIPINE BESYLATE 29611492750 No Longer Active Alex ALVAREZ Active ISOSORBIDE DINITRATE 30 MG ORAL TABLET Take one by mouth daily ISOSORBIDE DINITRATE 16138936847 No Longer Active Robbie Busby MD Active VIIBRYD 40 MG ORAL TABLET 1 TA B PO DAILY VILAZODONE HCL 94098959868 Active Robbie Busby MD Active ZITHROMAX 250 MG ORAL TABLET 2 po today, then 1 po q days 2-5 AZITHROMYCIN 24747864537 No Longer Active Robbie Busby MD Active DOXAZOSIN MESYLATE 4 MG ORAL TABLET Take one by mouth daily DOXAZOSIN MESYLATE 79750667412 Active Robbie Busby MD Active VENLAFAXINE HCL ER 150 MG ORAL TABLET EXTENDED RELEASE 24 HOUR Take one by mouth daily VENLAFAXINE HCL 70146054418 Active Robbie Busby MD Active LIPITOR 40 MG ORAL TABLET Take one by mouth daily ATORVASTATIN CALCIUM 99977050853 Active Robbie Busby MD Active ISOSORBIDE DINITRATE 30 MG ORAL TABLET Take one by mouth daily ISOSORBIDE DINITRATE 30 MG ORAL TABLET 763783 ISOSORBIDE DINITRATE Inactive NORVASC 10 MG ORAL TABLET 1 tablet by mouth daily NORVASC 10 MG ORAL TABLET 675768 AMLODIPINE BESYLATE Inactive AZITHROMYCIN 250 MG ORAL TABLET 2 tablets PO today---then, 1 tablet PO daily x 4 more days (and 1 optional refill) AZITHROMYCIN 250 MG ORAL TABLET 297332 AZITHROMYCIN Inactive CHERATUSSIN AC 100-10 MG/5ML ORAL SOLUTION 7.5 mL PO q 4-6 hrs PRN cough 2014 CHERATUSSIN AC 100-10 MG/5ML ORAL SOLUTION 168607 GUAIFENESIN-CODEINE Inactive VIIBRYD 40 MG ORAL TABLET take 1 tab po qday for depression. 2014 VIIBRYD 40 MG ORAL TABLET VILAZODONE HCL Inactive HYDRALAZINE HCL 25 MG ORAL TABLET 1 tablet by mouth tid for hypertension 2013 HYDRALAZINE HCL 25 MG ORAL TABLET 619945 HYDRALAZINE HCL Inactive SPIRONOLACTONE 50 MG ORAL TABLET 1 tablet by mouth twice a day SPIRONOLACTONE 50 MG ORAL TABLET 632550 SPIRONOLACTONE Inactive FENOFIBRATE 145 MG ORAL TABLET Take one by mouth daily FENOFIBRATE 145 MG ORAL TABLET 905029 FENOFIBRATE Inactive PROTONIX 40 MG INTRAVENOUS SOLUTION RECONSTITUTED 1 po qday for acid reflux PROTONIX 40 MG INTRAVENOUS SOLUTION RECONSTITUTED 625846 PANTOPRAZOLE SODIUM Inactive CEFDINIR 300 MG ORAL CAPSULE Take 1 cap po bid x 10 days CEFDINIR 300 MG ORAL CAPSULE 529099 CEFDINIR Inactive PREDNISONE 20 MG ORAL TABLET 1 tablet twice daily for 2 days, then 1 tablet once daily for 2 days PREDNISONE 20 MG ORAL TABLET 567393 PREDNISONE Inactive NYSTATIN 946862 UNIT/ML MOUTH/THROAT SUSPENSION 5mL po QID x 10 days NYSTATIN 180831 UNIT/ML MOUTH/THROAT SUSPENSION 596407 NYSTATIN Inactive BETADINE 10 % EXTERNAL SOLUTION wash with solution to treat follicultis 07/29 BETADINE 10 % EXTERNAL SOLUTION 7538415 POVIDONE-IODINE Inactive TRILEPTAL 150 MG ORAL TABLET 1 TAB PO Q HS TRILEPTAL 150 MG ORAL TABLET 962304 OXCARBAZEPINE Inactive LAMISIL 125 MG ORAL PACKET 1 TAB PO DAILY LAMISIL 125 MG ORAL PACKET TERBINAFINE HCL Inactive HYDROCHLOROTHIAZIDE TABLET Take one by mouth daily HYDROCHLOROTHIAZIDE TABLET HYDROCHLOROTHIAZIDE TABS Inactive HYDROCODONE-ACETAMINOPHEN 5-325 MG ORAL TABLET 1 tab by mouth BID prn back pain HYDROCODONE-ACETAMINOPHEN 5-325 MG ORAL TABLET 656147 HYDROCODONE-ACETAMINOPHEN Inactive HYDRALAZINE HCL 50 MG ORAL TABLET TWO BY MOUTH THREE TIMES DAILY HYDRALAZINE HCL 50 MG ORAL TABLET 826434 HYDRALAZINE HCL Inactive LEVAQUIN 500 MG ORAL TABLET 1 tablet by mouth daily for 7 days LEVAQUIN 500 MG ORAL TABLET 119105 LEVOFLOXACIN Inactive SPIRONOLACTONE 25 MG ORAL TABLET 4 tablets by mouth daily SPIRONOLACTONE 25 MG ORAL TABLET 251703 SPIRONOLACTONE Inactive MECLIZINE HCL 25 MG ORAL TABLET one 4 times a day as needed for dizziness MECLIZINE HCL 25 MG ORAL TABLET 831682 MECLIZINE HCL Inactive CLONIDINE HCL 0.2 MG ORAL TABLET 1 TAB BY MOUTH EVERY 8 HOURS CLONIDINE HCL 0.2 MG ORAL TABLET 643144 CLONIDINE HCL Inactive CYCLOBENZAPRINE HCL 10 MG ORAL TABLET 1 tablet by mouth three times daily as needed for muscle spasm/pain for 10 days CYCLOBENZAPRINE HCL 10 MG ORAL TABLET 748135 CYCLOBENZAPRINE HCL Inactive VITAMIN D3 71920 UNIT ORAL CAPSULE 2 CAPS PO WEEKLY VITAMIN D3 89487 UNIT ORAL CAPSULE CHOLECALCIFEROL Inactive FIORICET 50-300-40 MG ORAL CAPSULE take 1 tab po qday prn migraines. FIORICET 50-300-40 MG ORAL CAPSULE 248036 BUTALBITAL-APAP- CAFFEINE Inactive FLONASE 50 MCG/ACT NASAL SUSPENSION 1 spray each nostril twice daily for allergies and runny nose FLONASE 50 MCG/ACT NASAL SUSPENSION 7913173 FLUTICASONE PROPIONATE Inactive LORATADINE 10 MG ORAL TABLET 1 tablet by mouth daily for congestion and allergies. LORATADINE 10 MG ORAL TABLET 184955 LORATADINE Inactive NITROSTAT 0.4 MG SUBLINGUAL TABLET SUBLINGUAL PRN NITROSTAT 0.4 MG SUBLINGUAL TABLET SUBLINGUAL 250451 NITROGLYCERIN Inactive GUAIFENESIN ER 600 MG ORAL TABLET EXTENDED RELEASE 12 HOUR 1 tab po q am 2016 GUAIFENESIN ER 600 MG ORAL TABLET EXTENDED RELEASE 12 HOUR GUAIFENESIN Inactive CYCLOBENZAPRINE HCL 10 MG ORAL TABLET 1 po TID PRN muscle spasm/pain for 10 days CYCLOBENZAPRINE HCL 10 MG ORAL TABLET 413390 CYCLOBENZAPRINE HCL Inactive TOPIRAMATE 50 MG ORAL TABLET take 1 tab po BID for migraines. TOPIRAMATE 50 MG ORAL TABLET 317778 TOPIRAMATE Inactive PREDNISONE 20 MG ORAL TABLET two tabs by mouth today, then one tab by mouth days two and three PREDNISONE 20 MG ORAL TABLET 671753 PREDNISONE Inactive TOPROL XL 200 MG ORAL TABLET EXTENDED RELEASE 24 HOUR Take one by mouth daily TOPROL XL 200 MG ORAL TABLET EXTENDED RELEASE 24 HOUR METOPROLOL SUCCINATE Inactive CYCLOBENZAPRINE HCL 10 MG ORAL TABLET 1 tablet by mouth three times daily as needed for muscle spasm/pain CYCLOBENZAPRINE HCL 10 MG ORAL TABLET 817456 CYCLOBENZAPRINE HCL Inactive TOPIRAMATE 50 MG ORAL TABLET 1 po BID for migraines TOPIRAMATE 50 MG ORAL TABLET 571518 TOPIRAMATE Inactive TEMAZEPAM 15 MG ORAL CAPSULE 1 TAB PO Q HS TEMAZEPAM 15 MG ORAL CAPSULE 251074 TEMAZEPAM Inactive IMDUR 60 MG ORAL TABLET EXTENDED RELEASE 24 HOUR take 1 tab po qday for blood pressure IMDUR 60 MG ORAL TABLET EXTENDED RELEASE 24 HOUR ISOSORBIDE MONONITRATE Inactive [id number]-3 0.3 MG/24HR TRANSDERMAL PATCH WEEKLY apply 2 patches q week for HTN [id number]-DLP-1 0.3 MG/24HR TRANSDERMAL PATCH WEEKLY 510747 CLONIDINE HCL Inactive ZITHROMAX 250 MG ORAL TABLET 2 po today, then 1 po q days 2-5 ZITHROMAX 250 MG ORAL TABLET 606130 AZITHROMYCIN Inactive TERBINAFINE HCL 250 MG ORAL TABLET 1 tab po qday for foot infection TERBINAFINE HCL 250 MG ORAL TABLET 212992 TERBINAFINE HCL Inactive KEFLEX 500 MG ORAL CAPSULE 1 po TID x 10 days KEFLEX 500 MG ORAL CAPSULE 190876 CEPHALEXIN Inactive BACTRIM DS 800-160 MG ORAL TABLET 1 tab by mouth twice daily 2015 BACTRIM DS 800-160 MG ORAL TABLET 085341 TRIMETHOPRIM- SULFAMETHOXAZOLE Inactive PREDNISONE 20 MG ORAL TABLET take 3 tabs daily for 3 days, 2 tabs daily for 3 days, 1 tab daily for 3 days, 1/2 tab daily for 4 days PREDNISONE 20 MG ORAL TABLET 079068 PREDNISONE Inactive AZITHROMYCIN 250 MG ORAL TABLET 2 po qd x 1 day, then 1 po qd x 4 days 09/20 AZITHROMYCIN 250 MG ORAL TABLET 650652 AZITHROMYCIN Inactive SINGULAIR 10 MG ORAL TABLET 1 po qday for allergies. SINGULAIR 10 MG ORAL TABLET 425483 MONTELUKAST SODIUM Inactive Advance Directives Directive Description [...] AUTO - Chemistry sodium, serum 142 mmol/L 674-116 8140/07/17 carbon dioxide, venous blood 28.2 mmol/L 21.0-32.0 [...] % 11.0-15.0 platelet count 185 THOUSAND/UL 10*3/mm3 774-344 1694/04/14 mean platelet volume 10.9 fL 7.5-12.5 Lab Report: Comp. Metabolic Panel - Chemistry sodium, serum 141 mmol/L 114-210 6990/02/13 carbon dioxide, venous blood 23.9 mmol/L 21.0-32.0 [...] 6.9 % 4.3-6.0 sodium, serum 139 mmol/L 857-278 5865/01/04 potassium, serum 3.9 mmol/L 3.5-5.2 chloride, serum 103 mmol/L 98-107 carbon dioxide, venous blood 26.9 mmol/L 21.0-32.0 blood glucose 106 mg/dL 65-110 calcium, serum 9.0 mg/dL 8.5-10.1 urea nitrogen, blood 20 mg/dL 7-18 creatinine, serum 1.46 mg/dL 0.60-1.30 Lab Report: LIPID PANEL, TSH/899, T4, FREE/866 - Chemistry cholesterol, serum 220 mg/dL 935-365 3890/04/14 HDL cholesterol, serum 30 mg/dL > OR=40 [...] 1.80 ng/mL 0.00-4.00 Lab Report: VITAMIN D, 25-HYDROXY/02301 - Chemistry vitamin D 25-hydroxy, serum 25 ng/mL 30-100 Office Visit: Confusion, dizziness after fall - Basic LDL target level 130 mg/dL Office Visit: Confusion, dizziness after fall - Chemistry HDL cholesterol, serum, target level 40 mg/dL triglyceride, target level 150 mg/dL cholesterol, target level 200 mg/dL Encounters Code Encounter Date Provider Facility CPT-21699 Level 4 Est. Patient 09:50:01 ROLLER EMBOSSER Robbie Busby MD [facility] CPT-71134 Level 4 Est. Patient 09:42:08 ROLLER EMBOSSER Robbie Busby MD [facility] CPT-47922 Level 4 Est. Patient 13:07:39 ROLLER EMBOSSER Robbie Busby MD [facility] CPT-28349 Level 4 Est. Patient 15:23:44 ROLLER EMBOSSER Desmond Diaz DO [facility] CPT-41442 Level 3 Est. Patient 15:40:49 CDT Robbie Busby MD [facility] CPT-58309 Level 4 Est. Patient 15:18:19 CDT Robbie Busby MD [facility] CPT-15119 Level 3 Est. Patient 09:00:37 CDT Rober Rodríguez [facility] CPT-05080 Level 3 Est. Patient 16:07:10 CDT Robbie Busby MD [facility] CPT-36608 Level 4 Est. Patient 11:56:16 CDT Erin Mai [facility] CPT-81723 Level 3 Est. Patient 17:48:02 CDT Robbie Busby MD [facility] CPT-07008 Level 4 Est. Patient 12:00:49 ROLLER EMBOSSER Rober Rodríguez [facility] CPT-65451 Level 3 Est. Patient 09:16:37 CDT Robbie Busby MD [facility]-45827 Level 3 Est. Patient 19:38:43 CDT Robbie Busby MD [facility] CPT-79173 Level 3 Est. Patient 11:53:38 CDT Robbie Busby MD [facility] CPT-57314 Level 4 Est. Patient 12:52:22 CDT Rober Rodríguez [facility]-81525 Level 4 Est. Patient 22:55:17 CDT Robbie Busby MD [facility]-32452 Level 3 Est. Patient 12:38:24 CDT Desmond Diaz DO [facility] CPT-06527 Level 4 Est. Patient 11:25:03 ROLLER EMBOSSER Robbie Busby MD [facility] CPT-77136 Level 4 Est. Patient 14:50:10 CDT Robbie Busby MD [facility] CPT-31364 Level 4 Est. Patient 23:30:43 CDT Robbie Busby MD [facility] CPT-37226 Level 4 Est. Patient 10:30:43 CDT Robbie Busby MD [facility] CPT-17232 Level 3 Est. Patient 17:08:[address] [facility] CPT-07112 Level 4 Est. Patient 17:51:38 CDT Robbie Busby MD [facility]-22602 Level 4 Est. Patient 14:00:21 CDT Robbie Busby MD [facility] CPT-59406 Level 4 Est. Patient 12:46:48 CDT Robbie Busby MD [facility] CPT-48188 Level 4 Est. Patient 13:34:33 CDT Robbie Busby MD [facility] CPT-32314 Level 4 Est. Patient 16:58:28 CDT Robbie Busby MD [facility] CPT-85721 Level 3 Est. Patient 19:36:[address] [facility] CPT-30903 Level 3 Est. Patient 12:58:15 CDT Robbie Busby MD [facility] Procedures Code Procedure Name Date Entry Date Standard Description CPT-J1071 Depo Testosterone 200mg 08:56:46 CDT CPT-87005 Abx/Therapy Injection 08:56:45 CDT CPT-J1071 Depo Testosterone 200mg 08:26:27 CDT CPT-66543 Abx/Therapy Injection 08:26:27 CDT CPT-J1071 Depo Testosterone 200mg 10:27:10 CDT CPT-76128 Abx/Therapy Injection 10:27:10 CDT CPT-J1071 Depo Testosterone 200mg 16:10:29 ROLLER EMBOSSER CPT-29502 Abx/Therapy Injection 16:10:29 ROLLER EMBOSSER CPT-J1071 Depo Testosterone 200mg 16:13:47 ROLLER EMBOSSER CPT-37019 Abx/Therapy Injection 16:13:46 ROLLER EMBOSSER CPT-J1071 Depo Testosterone 200mg 15:33:58 ROLLER EMBOSSER CPT-57209 Abx/Therapy Injection 15:33:58 ROLLER EMBOSSER CPT-J1071 Depo Testosterone 200mg 09:38:36 ROLLER EMBOSSER CPT-52596 Abx/Therapy Injection 09:38:36 ROLLER EMBOSSER CPT-J1071 Depo Testosterone 200mg 10:22:56 ROLLER EMBOSSER CPT-73003 Abx/Therapy Injection 10:22:56 ROLLER EMBOSSER CPT-J1071 Depo Testosterone 200mg 15:40:23 CDT CPT-56357 Abx/Therapy Injection 15:40:23 CDT CPT-J1071 Depo Testosterone 200mg 14:20:43 CDT CPT-37461 Abx/Therapy Injection 14:20:43 CDT CPT-J1071 Depo Testosterone 200mg 14:17:22 CDT CPT-53002 Abx/Therapy Injection 14:17:22 CDT CPT-J1071 Depo Testosterone 200mg 09:03:53 CDT CPT-98441 Abx/Therapy Injection 09:03:53 CDT CPT-G0439 [facility] Annual Wellness Exam 16:47:44 CDT CPT-J1071 Depo Testosterone 200mg 09:06:28 CDT CPT-54723 Abx/Therapy Injection 09:06:28 CDT CPT-J1071 Depo Testosterone 200mg 08:30:01 CDT CPT-86328 Abx/Therapy Injection 08:30:01 CDT CPT-J1071 Depo Testosterone 200mg 08:24:00 CDT CPT-11321 Abx/Therapy Injection 08:24:00 CDT CPT-41908 Venipuncture Draw Fee 14:39:06 CDT CPT-65703 Ribs unilateral 2V - XRAY USE ONLY 12:10:11 CDT CPT-66825 First Vx - Ix admin for Medicare patients 16:32:53 CDT CPT-06654 Boostrix Intramuscular Suspension 5-2.5-18.5 16:32:53 CDT CPT-23313 TB Skin Test 11:42:28 CDT CPT-91780 Tdap 7yrs or > 11:42:28 CDT CPT-J0696 Rocephin 1000 mg (Ceftriaxone) 17:43:43 ROLLER EMBOSSER CPT-J1040 Depo Medrol 80 mg (Methyl Prednisolone Acetate) 17:43: 43 ROLLER EMBOSSER CPT-J1100 Decadron 8mg (Dexamethasone) 17:43:42 ROLLER EMBOSSER CPT-34870 Abx/Therapy Injection 17:43:42 ROLLER EMBOSSER CPT-46696 Abx/Therapy Injection 17:43:42 ROLLER EMBOSSER CPT-J1040 Depo Medrol 80 mg (Methyl Prednisolone Acetate) 09:43: 34 ROLLER EMBOSSER CPT-J1100 Decadron 8mg (Dexamethasone) 09:43:34 ROLLER EMBOSSER CPT-J0696 Rocephin 1gm Inj Solr 09:43:34 ROLLER EMBOSSER CPT-44818 Wound Culture - LAB USE ONLY 14:00:21 CDT CPT-I/D I/D Abscess 09:16:37 CDT CPT-13128 Venipuncture Draw Fee 15:20:23 CDT CPT-37792 Microalbumin - LAB USE ONLY 16:02:19 CDT CPT-72307 CBC - LAB USE ONLY 16:02:19 CDT CPT-01064 Venipuncture Draw Fee 16:02:19 CDT CPT-G0438 Initial Annual Wellness Exam 08:10:28 CDT CPT-46409 Venipuncture Draw Fee 13:07:17 CDT CPT-G0008 Administration of Influenza Virus Vaccine 16:09:59 CDT CPT-30372 Fluzone Quadrivalent Intramuscular Suspension 0.5 ML 16: 09:59 CDT CPT-87712 Spec Collection and Handling Fee 15:05:50 CDT
--- OUTSIDE RECORDS SUMMARY | 2018-04-18 15:27 | XMS REPORT | Clinical Summary ---
Author Author Admin, AKUA Organization [employer] Address Unknown Phone Unavailable Allergies, Adverse Reactions, [...] 2 weeks for low testosterone TESTOSTERONE CYPIONATE 82464198433 Active Zulema Blank LPN Active CYCLOBENZAPRINE HCL 10 MG ORAL TABS 1 po TID PRN muscle spasm/pain for 10 days CYCLOBENZAPRINE HCL 86356675823 Active JONATHAN Moncada Active GUAIFENESIN 600 MG [id number] 1 tab po q am GUAIFENESIN 73897425012 Active Rober Rodríguez SERVER DEVELOPER Active FLUTICASONE PROPIONATE 50 MCG/ACT SUSP 2 sprays per nostril bid for 1 week, then 1 spray bid FLUTICASONE PROPIONATE 98941664922 Active Jillina Frazelariana GONZALEZN Active HYDRALAZINE HCL 25 MG ORAL TABS Take 1 tab BID. HYDRALAZINE HCL 34450896088 Active Jillina Anne GONZALEZN Active VITAMIN D3 62407 UNIT ORAL TABS 2 po weekly CHOLECALCIFEROL 48225226484 Active Robbie Busby MD Active OXYCODONE HCL ER 10 MG ORAL T12A 1 tab po 3 times qd. OXYCODONE HCL 58396409954 Active Robbie Busby MD Active NITROSTAT 0.4 MG SUBL PRN NITROGLYCERIN 28064129020 No Longer Active Robbie Busby MD Active LORATADINE 10 MG TABS 1 tablet by mouth daily for congestion and allergies. LORATADINE 40205450122 No Longer Active Robbie Busby MD Active FLONASE 50 MCG/ACT SUSP 1 spray each nostril twice daily for allergies and runny nose FLUTICASONE PROPIONATE 70548872204 No Longer Active Robbie Busby MD Active FIORICET 50-300-40 MG ORAL CAPS take 1 tab po qday prn migraines. [id number] 16715228944 No Longer Active Robbie Busby MD Active VITAMIN D3 07119 UNIT CAPS 2 CAPS PO WEEKLY CHOLECALCIFEROL 07275123588 No Longer Active Robbie Busby MD Active CYCLOBENZAPRINE HCL 10 MG TABS 1 tablet by mouth three times daily as needed for muscle spasm/pain for 10 days CYCLOBENZAPRINE HCL 04648853761 No Longer Active Robbie Busby MD Active PREDNISONE 20 MG TAB take 3 tabs daily for 3 days, 2 tabs daily for 3 days, 1 tab daily for 3 days, 1/2 tab daily for 4 days PREDNISONE 64802906273 No Longer Active rEin Garsia APRN Active CLONIDINE HCL 0.2 MG ORAL TABS 1 TAB BY MOUTH EVERY 8 HOURS 12/29 CLONIDINE HCL 95055877152 No Longer Active Erin Garsia APRN Active MECLIZINE HCL 25 MG TAB one 4 times a day as needed for dizziness MECLIZINE HCL 79484332566 No Longer Active Erin Garsia APRN Active SPIRONOLACTONE 25 MG TAB 4 tablets by mouth daily SPIRONOLACTONE 41003379521 No Longer Active Erin Garsia APRN Active LEVAQUIN 500 MG TAB 1 tablet by mouth daily for 7 days LEVOFLOXACIN 63341394836 No Longer Active Erin Garsia APRN Active BACTRIM DS 800-160 MG TAB 1 tab by mouth twice daily TRIMETHOPRIM-SULFAMETHOXAZOLE 55640640159 No Longer Active Robbie Busby MD Active HYDRALAZINE HCL 50 MG ORAL TABS TWO BY MOUTH THREE TIMES DAILY HYDRALAZINE HCL 96556299834 No Longer Active Jillina Frazell SERVER DEVELOPER Active HYDROCODONE-ACETAMINOPHEN 5-325 MG TABS 1 tab by mouth BID prn back pain 2013 HYDROCODONE-ACETAMINOPHEN 66874088150 No Longer Active Jillina Frazell SERVER DEVELOPER Active HYDROCHLOROTHIAZIDE TABS Take one by mouth daily HYDROCHLOROTHIAZIDE TABS 36626665989 No Longer Active Jillina Frazell SERVER DEVELOPER Active LAMISIL 125 MG ORAL PACK 1 TAB PO DAILY TERBINAFINE HCL 07278209820 No Longer Active Jillina Frazell SERVER DEVELOPER Active TRILEPTAL 150 MG ORAL TABS 1 TAB PO Q HS OXCARBAZEPINE 39747554827 No Longer Active Jillina Frazell SERVER DEVELOPER Active BETADINE 10 % EXT SOLN wash with solution to treat follicultis POVIDONE-IODINE 19019530622 No Longer Active Jillina Frazell SERVER DEVELOPER Active NYSTATIN 528944 UNIT/ML M/T SUSP 5mL po QID x 10 days NYSTATIN 30547907864 No Longer Active Erin Ady SERVER DEVELOPER Active PREDNISONE 20 MG TAB 1 tablet twice daily for 2 days, then 1 tablet once daily for 2 days PREDNISONE 83674049256 No Longer Active Robbie Busby MD Active CEFDINIR 300 MG ORAL CAPS Take 1 cap po bid x 10 days CEFDINIR 15346873995 No Longer Active Robbie Busby MD Active AMLODIPINE BESYLATE 10 MG TABS 1 tablet by mouth daily AMLODIPINE BESYLATE 30080057001 Active Robbie Busby MD Active CARVEDILOL 25 MG TABS 1 & 1/2 TAB po BID CARVEDILOL 79353325479 Active Robbie Busby MD Active NEXIUM 40 MG CPDR 1 cap by mouth daily ESOMEPRAZOLE MAGNESIUM 18111359778 Active Robbie Busby MD Active PROTONIX 40 MG SOLR 1 po qday for acid reflux PANTOPRAZOLE SODIUM 01221231093 No Longer Active Gali Raida Active KEFLEX 500 MG CAP 1 po TID x 10 days CEPHALEXIN 76099746229 No Longer Active Robbie Busby MD Active TOPIRAMATE 50 MG ORAL TABS take 1 tab po BID for migraines. TOPIRAMATE 01847736265 Active Robbie Busby MD Active TEMAZEPAM 15 MG ORAL CAPS 1 TAB PO Q HS TEMAZEPAM 95245419642 Active Robbie Busby MD Active ALPRAZOLAM 2 MG ORAL TABS 1 TAB PO BID ALPRAZOLAM 77895489095 Active Robbie Busby MD Active FENOFIBRATE 145 MG TABS Take one by mouth daily FENOFIBRATE 62760658758 No Longer Active Robbie Busby MD Active SPIRONOLACTONE 50 MG TABS 1 tablet by mouth twice a day SPIRONOLACTONE 82188269795 No Longer Active Robbie Busby MD Active HYDRALAZINE HCL 25 MG TABS 1 tablet by mouth tid for hypertension HYDRALAZINE HCL 45099855418 No Longer Active Robbie Busby MD Active VIIBRYD 40 MG TABS take 1 tab po qday for depression. VILAZODONE HCL 33731206779 No Longer Active Robbie Busby MD Active TERBINAFINE HCL 250 MG TABS 1 tab po qday for foot infection 2014 TERBINAFINE HCL 30999308333 No Longer Active Robbie Busby MD Active GABAPENTIN 300 MG CAPS 1 po q hs for nerve pain GABAPENTIN 24557049870 Active Robbie Busby MD Active CHERATUSSIN AC 100-10 MG/5ML ORAL SOLN 7.5 mL PO q 4-6 hrs PRN cough GUAIFENESIN-CODEINE 06444097576 No Longer Active Robbie Busby MD Active AZITHROMYCIN 250 MG ORAL TABS 2 tablets PO today---then, 1 tablet PO daily x 4 more days (and 1 optional refill) AZITHROMYCIN 44555346083 No Longer Active Robbie Busby MD Active NORVASC 10 MG TAB 1 tablet by mouth daily AMLODIPINE BESYLATE 04991358286 No Longer Active Alex ALVAREZ Active IMDUR 60 MG TAB CR take 1 tab po qday for blood pressure ISOSORBIDE MONONITRATE Active Robbie Busby MD Active ISOSORBIDE DINITRATE 30 MG TABS Take one by mouth daily ISOSORBIDE DINITRATE 72928227388 No Longer Active Robbie Busby MD Active VIIBRYD 40 MG TABS 1 TA B PO DAILY VILAZODONE HCL 58198574406 Active Robbie Busby MD Active ZITHROMAX 250 MG TAB 2 po today, then 1 po q days 2-5 AZITHROMYCIN 71447129014 No Longer Active Robbie Busby MD Active [id number] 0.3 MG/24HR PTWK apply 2 patches q week for HTN CLONIDINE HCL 77800064159 Active Robbie Busby MD Active DOXAZOSIN MESYLATE 4 MG TABS Take one by mouth daily DOXAZOSIN MESYLATE 61676506266 Active Robbie Busby MD Active TOPROL XL 200 MG [id number] Take one by mouth daily METOPROLOL SUCCINATE 92849862348 Active Robbie Busby MD Active VENLAFAXINE HCL ER 150 MG [id number]-PRQ Take one by mouth daily VENLAFAXINE HCL 03520513168 Active Robbie Busby MD Active LIPITOR 40 MG TABS Take one by mouth daily ATORVASTATIN CALCIUM 61911663333 Active Robbie Busby MD Active ISOSORBIDE DINITRATE 30 MG TABS Take one by mouth daily ISOSORBIDE DINITRATE 30 MG TABS 616617 ISOSORBIDE DINITRATE Inactive NORVASC 10 MG TAB 1 tablet by mouth daily NORVASC 10 MG TAB 435586 AMLODIPINE BESYLATE Inactive AZITHROMYCIN 250 MG ORAL TABS 2 tablets PO today---then, 1 tablet PO daily x 4 more days (and 1 optional refill) AZITHROMYCIN 250 MG ORAL TABS 6586132 AZITHROMYCIN Inactive CHERATUSSIN AC 100-10 MG/5ML ORAL SOLN 7.5 mL PO q 4-6 hrs PRN cough CHERATUSSIN AC 100-10 MG/5ML ORAL SOLN 481320 GUAIFENESIN- CODEINE Inactive VIIBRYD 40 MG TABS take 1 tab po qday for depression. VIIBRYD 40 MG TABS VILAZODONE HCL Inactive HYDRALAZINE HCL 25 MG TABS 1 tablet by mouth tid for hypertension HYDRALAZINE HCL 25 MG TABS 829104 HYDRALAZINE HCL Inactive SPIRONOLACTONE 50 MG TABS 1 tablet by mouth twice a day SPIRONOLACTONE 50 MG TABS 601937 SPIRONOLACTONE Inactive FENOFIBRATE 145 MG TABS Take one by mouth daily FENOFIBRATE 145 MG TABS 262124 FENOFIBRATE Inactive PROTONIX 40 MG SOLR 1 po qday for acid reflux PROTONIX 40 MG SOLR 050011 PANTOPRAZOLE SODIUM Inactive CEFDINIR 300 MG ORAL CAPS Take 1 cap po bid x 10 days CEFDINIR 300 MG ORAL CAPS 284737 CEFDINIR Inactive PREDNISONE 20 MG TAB 1 tablet twice daily for 2 days, then 1 tablet once daily for 2 days PREDNISONE 20 MG TAB 869242 PREDNISONE Inactive NYSTATIN 136840 UNIT/ML M/T SUSP 5mL po QID x 10 days NYSTATIN 157287 UNIT/ML M/T SUSP 745742 NYSTATIN Inactive BETADINE 10 % EXT SOLN wash with solution to treat follicultis BETADINE 10 % EXT SOLN 6410058 POVIDONE-IODINE Inactive TRILEPTAL 150 MG ORAL TABS 1 TAB PO Q HS TRILEPTAL 150 MG ORAL TABS 741697 OXCARBAZEPINE Inactive LAMISIL 125 MG ORAL PACK 1 TAB PO DAILY LAMISIL 125 MG ORAL PACK TERBINAFINE HCL Inactive HYDROCHLOROTHIAZIDE TABS Take one by mouth daily HYDROCHLOROTHIAZIDE TABS HYDROCHLOROTHIAZIDE TABS Inactive HYDROCODONE-ACETAMINOPHEN 5-325 MG TABS 1 tab by mouth BID prn back pain 2013 HYDROCODONE-ACETAMINOPHEN 5-325 MG TABS 575084 HYDROCODONE -ACETAMINOPHEN Inactive HYDRALAZINE HCL 50 MG ORAL TABS TWO BY MOUTH THREE TIMES DAILY HYDRALAZINE HCL 50 MG ORAL TABS 583329 HYDRALAZINE HCL Inactive LEVAQUIN 500 MG TAB 1 tablet by mouth daily for 7 days LEVAQUIN 500 MG TAB 664463 LEVOFLOXACIN Inactive SPIRONOLACTONE 25 MG TAB 4 tablets by mouth daily SPIRONOLACTONE 25 MG TAB 838466 SPIRONOLACTONE Inactive MECLIZINE HCL 25 MG TAB one 4 times a day as needed for dizziness MECLIZINE HCL 25 MG TAB 320781 MECLIZINE HCL Inactive CLONIDINE HCL 0.2 MG ORAL TABS 1 TAB BY MOUTH EVERY 8 HOURS 12/29 CLONIDINE HCL 0.2 MG ORAL TABS 979127 CLONIDINE HCL Inactive CYCLOBENZAPRINE HCL 10 MG TABS 1 tablet by mouth three times daily as needed for muscle spasm/pain for 10 days CYCLOBENZAPRINE HCL 10 MG TABS 656097 CYCLOBENZAPRINE HCL Inactive VITAMIN D3 75031 UNIT CAPS 2 CAPS PO WEEKLY VITAMIN D3 54533 UNIT CAPS CHOLECALCIFEROL Inactive FIORICET 50-300-40 MG ORAL CAPS take 1 tab po qday prn migraines. FIORICET 50-300-40 MG ORAL CAPS 738645 [id number]-HOLDIJGE Inactive FLONASE 50 MCG/ACT SUSP 1 spray each nostril twice daily for allergies and runny nose FLONASE 50 MCG/ACT SUSP 6154833 FLUTICASONE PROPIONATE Inactive LORATADINE 10 MG TABS 1 tablet by mouth daily for congestion and allergies. LORATADINE 10 MG TABS 743976 LORATADINE Inactive NITROSTAT 0.4 MG SUBL PRN NITROSTAT 0.4 MG SUBL 577222 NITROGLYCERIN Inactive ZITHROMAX 250 MG TAB 2 po today, then 1 po q days 2-5 ZITHROMAX 250 MG TAB 7528949 AZITHROMYCIN Inactive TERBINAFINE HCL 250 MG TABS 1 tab po qday for foot infection 2014 TERBINAFINE HCL 250 MG TABS 906163 TERBINAFINE HCL Inactive KEFLEX 500 MG CAP 1 po TID x 10 days KEFLEX 500 MG CAP 504267 CEPHALEXIN Inactive BACTRIM DS 800-160 MG TAB 1 tab by mouth twice daily BACTRIM DS 800-160 MG TAB 931785 TRIMETHOPRIM-SULFAMETHOXAZOLE Inactive PREDNISONE 20 MG TAB take 3 tabs daily for 3 days, 2 tabs daily for 3 days, 1 tab daily for 3 days, 1/2 tab daily for 4 days PREDNISONE 20 MG TAB 336857 PREDNISONE Inactive Advance Directives Directive Description Start [...] AUTO - Chemistry sodium, serum 142 mmol/L 738-956 7422/07/17 carbon dioxide, venous blood 28.2 mmol/L 21.0-32.0 [...] % 11.0-15.0 platelet count 185 THOUSAND/UL 10*3/mm3 690-970 0109/04/14 mean platelet volume 10.9 fL 7.5-12.5 Lab Report: LIPID PANEL, TSH/899, T4, FREE/866 - Chemistry cholesterol, serum 220 mg/dL 099-781 4584/04/14 HDL cholesterol, serum 30 mg/dL > OR=40 [...] 1.80 ng/mL 0.00-4.00 Lab Report: VITAMIN D, 25-HYDROXY/92587 - Chemistry vitamin D 25-hydroxy, serum 25 ng/mL 30-100 Office Visit: Confusion, dizziness after fall - Basic LDL target level 130 mg/dL Office Visit: Confusion, dizziness after fall - Chemistry HDL cholesterol, serum, target level 40 mg/dL triglyceride, target level 150 mg/dL cholesterol, target level 200 mg/dL Encounters Code Encounter Date Provider Facility CPT-75451 Level 4 Est. Patient 15:18:19 CDT Robbie Busby MD [facility] CPT-12516 Level 3 Est. Patient 09:00:37 CDT Rober Rodríguez [facility] CPT-41046 Level 3 Est. Patient 16:07:10 CDT Robbie Busby MD [facility] CPT-92568 Level 4 Est. Patient 11:56:16 CDT Erin Garsia [facility] CPT-20907 Level 3 Est. Patient 17:48:02 CDT Robbie Busby MD [facility] CPT-78038 Level 4 Est. Patient 12:00:49 TECHNICAL PROPOSAL WRITER Rober Rodríguez [facility] CPT-70750 Level 3 Est. Patient 09:16:37 CDT Robbie Busby MD [facility] CPT-20015 Level 3 Est. Patient 19:38:43 CDT Robbie Busby MD [facility] CPT-44325 Level 3 Est. Patient 11:53:38 CDT Robbie Busby MD [facility] CPT-65221 Level 4 Est. Patient 12:52:22 CDT Rober Rodríguez [facility] CPT-71732 Level 4 Est. Patient 22:55:17 CDT Robbie Busby MD [facility] CPT-00209 Level 3 Est. Patient 12:38:24 CDT Desmond Diaz DO [facility] CPT-75431 Level 4 Est. Patient 11:25:03 TECHNICAL PROPOSAL WRITER Robbie Busby MD [facility] CPT-32344 Level 4 Est. Patient 14:50:10 CDT Robbie Busby MD [facility] CPT-39422 Level 4 Est. Patient 23:30:43 CDT Robbie Busby MD [facility] CPT-90191 Level 4 Est. Patient 10:30:43 CDT Robbie Busby MD [facility] CPT-67573 Level 3 Est. Patient 17:08:12 CDT Alex Shaw [facility] CPT-04597 Level 4 Est. Patient 17:51:38 CDT Robbie Busby MD [facility] CPT-10251 Level 4 Est. Patient 14:00:21 CDT Robbie Busby MD [facility] CPT-07970 Level 4 Est. Patient 12:46:48 CDT Robbie Busby MD [facility] CPT-31250 Level 4 Est. Patient 13:34:33 CDT Robbie Busby MD [facility] CPT-08314 Level 4 Est. Patient 16:58:28 CDT Robbie Busby MD [facility] CPT-13917 Level 3 Est. Patient 19:36:53 CDT Alex Shaw [facility] CPT-93645 Level 3 Est. Patient 12:58:15 CDT Robbie Busby MD [facility] Procedures Code Procedure Name Date Entry Date Standard Description CPT-J1071 Depo Testosterone 200mg 08:30:01 CDT CPT-11754 Abx/Therapy Injection 08:30:01 CDT CPT-J1071 Depo Testosterone 200mg 08:24:00 CDT CPT-05095 Abx/Therapy Injection 08:24:00 CDT CPT-45455 Venipuncture Draw Fee 14:39:06 CDT CPT-11113 Ribs unilateral 2V - XRAY USE ONLY 12:10:11 CDT CPT-20691 First Vx - Ix admin for Medicare patients 16:32:53 CDT CPT-09879 Boostrix Intramuscular Suspension 5-2.5-18.5 16:32:53 CDT CPT-23613 TB Skin Test 11:42:28 CDT CPT-01693 Tdap 7yrs or > 11:42:28 CDT CPT-J0696 Rocephin 1000 mg (Ceftriaxone) 17:43:43 TECHNICAL PROPOSAL WRITER CPT-J1040 Depo Medrol 80 mg (Methyl Prednisolone Acetate) 17:43: 43 TECHNICAL PROPOSAL WRITER CPT-J1100 Decadron 8mg (Dexamethasone) 17:43:42 TECHNICAL PROPOSAL WRITER CPT-38399 Abx/Therapy Injection 17:43:42 TECHNICAL PROPOSAL WRITER CPT-17107 Abx/Therapy Injection 17:43:42 TECHNICAL PROPOSAL WRITER CPT-J1040 Depo Medrol 80 mg (Methyl Prednisolone Acetate) 09:43: 34 TECHNICAL PROPOSAL WRITER CPT-J1100 Decadron 8mg (Dexamethasone) 09:43:34 TECHNICAL PROPOSAL WRITER CPT-J0696 Rocephin 1gm Inj Solr 09:43:34 TECHNICAL PROPOSAL WRITER CPT-59328 Wound Culture - LAB USE ONLY 14:00:21 CDT CPT-I/D I/D Abscess 09:16:37 CDT CPT-22673 Venipuncture Draw Fee 15:20:23 CDT CPT-09496 Microalbumin - LAB USE ONLY 16:02:19 CDT CPT-86345 CBC - LAB USE ONLY 16:02:19 CDT CPT-19945 Venipuncture Draw Fee 16:02:19 CDT CPT-G0438 Initial Annual Wellness Exam 08:10:28 CDT CPT-37621 Venipuncture Draw Fee 13:07:17 CDT CPT-G0008 Administration of Influenza Virus Vaccine 16:09:59 CDT CPT-71240 Fluzone Quadrivalent Intramuscular Suspension 0.5 ML 16: 09:59 CDT CPT-78979 Spec Collection and Handling Fee 15:05:50 CDT
--- OUTSIDE RECORDS SUMMARY | 2018-04-18 15:27 | XMS REPORT | Clinical Summary ---
Author Author Admin, Nicolas Organization [employer] Address Unknown Phone Unavailable Allergies, Adverse Reactions, [...] cap po bid x 10 days CEFDINIR 24270538775 Active Jackie Junior MA Active PREDNISONE 20 MG TAB 1 tablet twice daily for 2 days, then 1 tablet once daily for 2 days PREDNISONE 65389266761 Active Desmond Diaz DO Active NEXIUM 40 MG CPDR 1 cap by mouth daily ESOMEPRAZOLE MAGNESIUM 24985808244 Active Gali Negro Active PROTONIX 40 MG SOLR 1 po qday for acid reflux PANTOPRAZOLE SODIUM 02328848447 No Longer Active Galileonila Negro Active BETADINE 10 % EXT SOLN wash with solution to treat follicultis POVIDONE-IODINE 57257586239 Active Robbie Busby MD Active KEFLEX 500 MG CAP 1 po TID x 10 days CEPHALEXIN 90827507339 No Longer Active Robbie Busby MD Active FIORICET 50-300-40 MG ORAL CAPS take 1 tab po qday prn migraines. [id number]-ASGUOQSH 59988032007 Active Robbie Busby MD Active TOPIRAMATE 50 MG ORAL TABS take 1 tab po BID for migraines. TOPIRAMATE 39306478570 Active Robbie Busby MD Active HYDRALAZINE HCL 50 MG ORAL TABS TWO BY MOUTH THREE TIMES DAILY HYDRALAZINE HCL 47903616055 Active Robbie Busby MD Active MECLIZINE HCL 25 MG TAB one 4 times a day as needed for dizziness MECLIZINE HCL 68463801603 Active Robbie Busby MD Active TRILEPTAL 150 MG ORAL TABS 1 TAB PO Q HS OXCARBAZEPINE 49168673864 Active Robbie Busby MD Active TEMAZEPAM 15 MG ORAL CAPS 1 TAB PO Q HS TEMAZEPAM 57289533479 Active Robbie Busby MD Active ALPRAZOLAM 2 MG ORAL TABS 1 TAB PO BID ALPRAZOLAM 42917442936 Active Robbie Busby MD Active FENOFIBRATE 145 MG TABS Take one by mouth daily FENOFIBRATE 64075912415 No Longer Active Robbie Busby MD Active LAMISIL 125 MG ORAL PACK 1 TAB PO DAILY TERBINAFINE HCL 19981650505 Active Robbie Busby MD Active SPIRONOLACTONE 50 MG TABS 1 tablet by mouth twice a day SPIRONOLACTONE 43716919870 No Longer Active Robbie Busby MD Active HYDRALAZINE HCL 25 MG TABS 1 tablet by mouth tid for hypertension HYDRALAZINE HCL 10703554251 No Longer Active Robbie Busby MD Active VIIBRYD 40 MG TABS take 1 tab po qday for depression. VILAZODONE HCL 40178741827 No Longer Active Robbie Busby MD Active TERBINAFINE HCL 250 MG TABS 1 tab po qday for foot infection 2014 TERBINAFINE HCL 57325356525 No Longer Active Robbie Busby MD Active GABAPENTIN 300 MG CAPS 1 po q hs for nerve pain GABAPENTIN 58945856477 Active Erin Garsia APRN Active FLONASE 50 MCG/ACT SUSP 1 spray each nostril twice daily for allergies and runny nose FLUTICASONE PROPIONATE 09639802962 Active Robibe Busby MD Active CHERATUSSIN AC 100-10 MG/5ML ORAL SOLN 7.5 mL PO q 4-6 hrs PRN cough GUAIFENESIN-CODEINE 97242316873 No Longer Active Robbie Busby MD Active AZITHROMYCIN 250 MG ORAL TABS 2 tablets PO today---then, 1 tablet PO daily x 4 more days (and 1 optional refill) AZITHROMYCIN 77385740561 No Longer Active Robbie Busby MD Active CLONIDINE HCL 0.2 MG ORAL TABS 1 TAB BY MOUTH EVERY 8 HOURS CLONIDINE HCL 67342248172 Active Robbie Busby MD Active HYDROCHLOROTHIAZIDE TABS Take one by mouth daily HYDROCHLOROTHIAZIDE TABS 34491777899 Active Alex ALVAREZ Active NORVASC 10 MG TAB 1 tablet by mouth daily AMLODIPINE BESYLATE 79362308844 No Longer Active Alex ALVAREZ Active IMDUR 60 MG TAB CR take 1 tab po qday for blood pressure ISOSORBIDE MONONITRATE Active Robbie Busby MD Active ISOSORBIDE DINITRATE 30 MG TABS Take one by mouth daily ISOSORBIDE DINITRATE 98417635346 No Longer Active Robbie Busby MD Active VIIBRYD 40 MG TABS 1 TA B PO DAILY VILAZODONE HCL 00188314104 Active Robbie Busby MD Active LORATADINE 10 MG TABS 1 tablet by mouth daily for congestion and allergies. LORATADINE 96740641642 Active Robbie Busby MD Active ZITHROMAX 250 MG TAB 2 po today, then 1 po q days 2-5 AZITHROMYCIN 00765402934 No Longer Active Robbie Busby MD Active HYDROCODONE-ACETAMINOPHEN 5-325 MG TABS 1 tab by mouth BID prn back pain 2013 HYDROCODONE-ACETAMINOPHEN 09579711679 Active Robbie Busby MD Active SVCBECSN-IXQ-3 0.3 MG/24HR PTWK apply 2 patches q week for HTN CLONIDINE HCL 79453062396 Active Robbie Busby MD Active NITROSTAT 0.4 MG SUBL PRN NITROGLYCERIN 31340191955 Active Robbie Busby MD Active DOXAZOSIN MESYLATE 4 MG TABS Take one by mouth daily DOXAZOSIN MESYLATE 88098442337 Active Robbie Busby MD Active TOPROL XL 200 MG PH60P-EPS Take one by mouth daily METOPROLOL SUCCINATE 08673863468 Active Robbie Busby MD Active VENLAFAXINE HCL ER 150 MG EA75G-MAS Take one by mouth daily VENLAFAXINE HCL 62226422256 Active Robbie Busby MD Active LIPITOR 40 MG TABS Take one by mouth daily ATORVASTATIN CALCIUM 05155482307 Active Robbie Busby MD Active ISOSORBIDE DINITRATE 30 MG TABS Take one by mouth daily ISOSORBIDE DINITRATE 30 MG TABS 934883 ISOSORBIDE DINITRATE Inactive NORVASC 10 MG TAB 1 tablet by mouth daily NORVASC 10 MG TAB 894301 AMLODIPINE BESYLATE Inactive AZITHROMYCIN 250 MG ORAL TABS 2 tablets PO today---then, 1 tablet PO daily x 4 more days (and 1 optional refill) AZITHROMYCIN 250 MG ORAL TABS 7350528 AZITHROMYCIN Inactive CHERATUSSIN AC 100-10 MG/5ML ORAL SOLN 7.5 mL PO q 4-6 hrs PRN cough CHERATUSSIN AC 100-10 MG/5ML ORAL SOLN 246729 GUAIFENESIN- CODEINE Inactive VIIBRYD 40 MG TABS take 1 tab po qday for depression. VIIBRYD 40 MG TABS VILAZODONE HCL Inactive HYDRALAZINE HCL 25 MG TABS 1 tablet by mouth tid for hypertension HYDRALAZINE HCL 25 MG TABS 550440 HYDRALAZINE HCL Inactive SPIRONOLACTONE 50 MG TABS 1 tablet by mouth twice a day SPIRONOLACTONE 50 MG TABS 258701 SPIRONOLACTONE Inactive FENOFIBRATE 145 MG TABS Take one by mouth daily FENOFIBRATE 145 MG TABS 584796 FENOFIBRATE Inactive PROTONIX 40 MG SOLR 1 po qday for acid reflux PROTONIX 40 MG SOLR PANTOPRAZOLE SODIUM Inactive ZITHROMAX 250 MG TAB 2 po today, then 1 po q days 2-5 ZITHROMAX 250 MG TAB 5290503 AZITHROMYCIN Inactive TERBINAFINE HCL 250 MG TABS 1 tab po qday for foot infection 2014 TERBINAFINE HCL 250 MG TABS 853810 TERBINAFINE HCL Inactive KEFLEX 500 MG CAP 1 po TID x 10 days KEFLEX 500 MG CAP 577946 CEPHALEXIN Inactive Vital Signs Date Name Value [...] diastolic - 8462-4 96 mm[Hg] BP [place] blood pressure, systolic - 8480-6 135 mm[Hg] [...] PANEL - Chemistry cholesterol, serum 211 mg/dL 716-472 4279/08/31 triglyceride, serum, fasting 429 mg/dL 30-200 HDL [...] Negative Encounters Code Encounter Date Provider Facility CPT-65882 Level 3 Est. Patient 12:38:24 CDT Desmond Diaz DO [facility] CPT-79643 Level 4 Est. 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 Patient 14:50:10 CDT Robbie Busby MD [facility]-06155 Level 4 Est. Patient 23:30:43 CDT Robbie Busby MD [facility] CPT-77732 Level 4 Est. Patient 10:30:43 CDT Robbie Busby MD [facility] CPT-10768 Level 3 Est. Patient 17:08:12 CDT Alex ALVAREZ [facility] CPT-58856 Level 4 Est. Patient 17:51:38 CDT Robbie Busby MD [facility] CPT-79388 Level 4 Est. Patient 14:00:21 CDT Robbie Busby MD [facility] CPT-33689 Level 4 Est. Patient 12:46:48 CDT Robbie Busby MD [facility]-40492 Level 4 Est. Patient 13:34:33 CDT Robbie Busby MD [facility]-24951 Level 4 Est. Patient 16:58:28 CDT Robbie Busby MD [facility]-54257 Level 3 Est. Patient 19:36:53 CDT Alex ALVAREZ [facility] CPT-26842 Level 3 Est. Patient 12:58:15 CDT Robbie Busby MD [facility] Procedures Code Procedure Name Date Entry Date Standard Description CPT-G0008 Administration of Influenza Virus Vaccine 16:09:59 CDT CPT-31206 Fluzone Quadrivalent Intramuscular Suspension 0.5 ML 16: 09:59 CDT CPT-84641 Spec Collection and Handling Fee 15:05:50 CDT
--- OUTSIDE RECORDS SUMMARY | 2018-04-18 15:28 | XMS REPORT | Clinical Summary ---
Author Author Admin, [facility] Organization [facility] Address Unknown Phone Unavailable Allergies, Adverse [...] essential hypertension Sinusitis - acute 461.9 Active Eirn Garsia APRN Acute sinusitis, unspecified Acute confusion [...] 2 weeks for low testosterone TESTOSTERONE CYPIONATE 65735393788 Active Zulema Blank LPN Active CYCLOBENZAPRINE HCL 10 MG ORAL TABS 1 po TID PRN muscle spasm/pain for 10 days CYCLOBENZAPRINE HCL 36785890566 Active JONATHAN Moncada Active GUAIFENESIN 600 MG [id number] 1 tab po q am GUAIFENESIN 89932850594 Active Rober Rodríguez [employer] Active FLUTICASONE PROPIONATE 50 MCG/ACT SUSP 2 sprays per nostril bid for 1 week, then 1 spray bid FLUTICASONE PROPIONATE 34238270430 Active Jishantel Rodríguez APRN Active HYDRALAZINE HCL 25 MG ORAL TABS Take 1 tab BID. HYDRALAZINE HCL 37705193419 Active Rober Rodríguez APRN Active VITAMIN D3 88206 UNIT ORAL TABS 2 po weekly CHOLECALCIFEROL 94258648389 Active JONATHAN Moncada Active OXYCODONE HCL ER 10 MG ORAL T12A 1 tab po 3 times qd. OXYCODONE HCL 88572184963 Active Robbie Busby MD Active NITROSTAT 0.4 MG SUBL PRN NITROGLYCERIN 20434201897 No Longer Active Robbie Busby MD Active LORATADINE 10 MG TABS 1 tablet by mouth daily for congestion and allergies. LORATADINE 80222738552 No Longer Active Robbie Busby MD Active FLONASE 50 MCG/ACT SUSP 1 spray each nostril twice daily for allergies and runny nose FLUTICASONE PROPIONATE 30391456847 No Longer Active Robbie Busby MD Active FIORICET 50-300-40 MG ORAL CAPS take 1 tab po qday prn migraines. [id number] 93957237286 No Longer Active Robbie Busby MD Active VITAMIN D3 96237 UNIT CAPS 2 CAPS PO WEEKLY CHOLECALCIFEROL 23349362185 No Longer Active Robbie Busby MD Active CYCLOBENZAPRINE HCL 10 MG TABS 1 tablet by mouth three times daily as needed for muscle spasm/pain for 10 days CYCLOBENZAPRINE HCL 19901044279 No Longer Active Robbie Busby MD Active PREDNISONE 20 MG TAB take 3 tabs daily for 3 days, 2 tabs daily for 3 days, 1 tab daily for 3 days, 1/2 tab daily for 4 days PREDNISONE 81889369178 No Longer Active Erin Garsia APRN Active CLONIDINE HCL 0.2 MG ORAL TABS 1 TAB BY MOUTH EVERY 8 HOURS 12/29 CLONIDINE HCL 94604976089 No Longer Active Erin Garsia APRN Active MECLIZINE HCL 25 MG TAB one 4 times a day as needed for dizziness MECLIZINE HCL 38013971810 No Longer Active Erin Garsia APRN Active SPIRONOLACTONE 25 MG TAB 4 tablets by mouth daily SPIRONOLACTONE 66476774254 No Longer Active Erin Garsia APRN Active LEVAQUIN 500 MG TAB 1 tablet by mouth daily for 7 days LEVOFLOXACIN 66303081118 No Longer Active Erin Garsia APRN Active BACTRIM DS 800-160 MG TAB 1 tab by mouth twice daily TRIMETHOPRIM-SULFAMETHOXAZOLE 55652146170 No Longer Active Robbie Busby MD Active HYDRALAZINE HCL 50 MG ORAL TABS TWO BY MOUTH THREE TIMES DAILY HYDRALAZINE HCL 68742600399 No Longer Active Jillina Frakiersetnl [employer] Active HYDROCODONE-ACETAMINOPHEN 5-325 MG TABS 1 tab by mouth BID prn back pain 2013 HYDROCODONE-ACETAMINOPHEN 14521485555 No Longer Active Jillina Frazell [employer] Active HYDROCHLOROTHIAZIDE TABS Take one by mouth daily HYDROCHLOROTHIAZIDE TABS 24678774604 No Longer Active Jillina Frazell [employer] Active LAMISIL 125 MG ORAL PACK 1 TAB PO DAILY TERBINAFINE HCL 88436689971 No Longer Active Jillina Frazell [employer] Active TRILEPTAL 150 MG ORAL TABS 1 TAB PO Q HS OXCARBAZEPINE 90684466936 No Longer Active Jillina Frazell [employer] Active BETADINE 10 % EXT SOLN wash with solution to treat follicultis POVIDONE-IODINE 69673206531 No Longer Active Jillina Frazell [employer] Active NYSTATIN 768327 UNIT/ML M/T SUSP 5mL po QID x 10 days NYSTATIN 76613593847 No Longer Active Erin Garsia APRN Active PREDNISONE 20 MG TAB 1 tablet twice daily for 2 days, then 1 tablet once daily for 2 days PREDNISONE 91334383660 No Longer Active Robbie Busby MD Active CEFDINIR 300 MG ORAL CAPS Take 1 cap po bid x 10 days CEFDINIR 34605984109 No Longer Active Robbie Busby MD Active AMLODIPINE BESYLATE 10 MG TABS 1 tablet by mouth daily AMLODIPINE BESYLATE 90741668707 Active Robbie Busby MD Active CARVEDILOL 25 MG TABS 1 & 1/2 TAB po BID CARVEDILOL 73320292518 Active Robbie Busby MD Active NEXIUM 40 MG CPDR 1 cap by mouth daily ESOMEPRAZOLE MAGNESIUM 46276348958 Active Robbie Busby MD Active PROTONIX 40 MG SOLR 1 po qday for acid reflux PANTOPRAZOLE SODIUM 92955075761 No Longer Active Gali Raida Active KEFLEX 500 MG CAP 1 po TID x 10 days CEPHALEXIN 02201505941 No Longer Active Robbie Busby MD Active TOPIRAMATE 50 MG ORAL TABS take 1 tab po BID for migraines. TOPIRAMATE 21491031384 Active Robbie Busby MD Active TEMAZEPAM 15 MG ORAL CAPS 1 TAB PO Q HS TEMAZEPAM 50567353853 Active Robbie Busby MD Active ALPRAZOLAM 2 MG ORAL TABS 1 TAB PO BID ALPRAZOLAM 37425718802 Active Robbie Busby MD Active FENOFIBRATE 145 MG TABS Take one by mouth daily FENOFIBRATE 83678671664 No Longer Active Robbie Busby MD Active SPIRONOLACTONE 50 MG TABS 1 tablet by mouth twice a day SPIRONOLACTONE 52018848671 No Longer Active Robbie Busby MD Active HYDRALAZINE HCL 25 MG TABS 1 tablet by mouth tid for hypertension HYDRALAZINE HCL 55452107778 No Longer Active Robbie Busby MD Active VIIBRYD 40 MG TABS take 1 tab po qday for depression. VILAZODONE HCL 97513936364 No Longer Active Robbie Busby MD Active TERBINAFINE HCL 250 MG TABS 1 tab po qday for foot infection 2014 TERBINAFINE HCL 89847968431 No Longer Active Robbie Busby MD Active GABAPENTIN 300 MG CAPS 1 po q hs for nerve pain GABAPENTIN 61370978555 Active Robbie Busby MD Active CHERATUSSIN AC 100-10 MG/5ML ORAL SOLN 7.5 mL PO q 4-6 hrs PRN cough GUAIFENESIN-CODEINE 54077004584 No Longer Active Robbie Busby MD Active AZITHROMYCIN 250 MG ORAL TABS 2 tablets PO today---then, 1 tablet PO daily x 4 more days (and 1 optional refill) AZITHROMYCIN 62592237152 No Longer Active Robbie Busby MD Active NORVASC 10 MG TAB 1 tablet by mouth daily AMLODIPINE BESYLATE 39233961351 No Longer Active Alex ALVAREZ Active IMDUR 60 MG TAB CR take 1 tab po qday for blood pressure ISOSORBIDE MONONITRATE Active Robbie Busby MD Active ISOSORBIDE DINITRATE 30 MG TABS Take one by mouth daily ISOSORBIDE DINITRATE 52128712866 No Longer Active Robbie Busby MD Active VIIBRYD 40 MG TABS 1 TA B PO DAILY VILAZODONE HCL 68471152772 Active Robbie Busby MD Active ZITHROMAX 250 MG TAB 2 po today, then 1 po q days 2-5 AZITHROMYCIN 64663573977 No Longer Active Robbie Busby MD Active [id number] 0.3 MG/24HR PTWK apply 2 patches q week for HTN CLONIDINE HCL 47331827980 Active Robbie Busby MD Active DOXAZOSIN MESYLATE 4 MG TABS Take one by mouth daily DOXAZOSIN MESYLATE 51402097288 Active Robbie Busby MD Active TOPROL XL 200 MG [id number] Take one by mouth daily METOPROLOL SUCCINATE 07757784226 Active Robbie Busby MD Active VENLAFAXINE HCL ER 150 MG [id number] Take one by mouth daily VENLAFAXINE HCL 45530268875 Active Robbie Busby MD Active LIPITOR 40 MG TABS Take one by mouth daily ATORVASTATIN CALCIUM 66116203578 Active Robbie Busby MD Active ISOSORBIDE DINITRATE 30 MG TABS Take one by mouth daily ISOSORBIDE DINITRATE 30 MG TABS 413109 ISOSORBIDE DINITRATE Inactive NORVASC 10 MG TAB 1 tablet by mouth daily NORVASC 10 MG TAB 437278 AMLODIPINE BESYLATE Inactive AZITHROMYCIN 250 MG ORAL TABS 2 tablets PO today---then, 1 tablet PO daily x 4 more days (and 1 optional refill) AZITHROMYCIN 250 MG ORAL TABS 2384612 AZITHROMYCIN Inactive CHERATUSSIN AC 100-10 MG/5ML ORAL SOLN 7.5 mL PO q 4-6 hrs PRN cough CHERATUSSIN AC 100-10 MG/5ML ORAL SOLN 781056 GUAIFENESIN- CODEINE Inactive VIIBRYD 40 MG TABS take 1 tab po qday for depression. VIIBRYD 40 MG TABS VILAZODONE HCL Inactive HYDRALAZINE HCL 25 MG TABS 1 tablet by mouth tid for hypertension HYDRALAZINE HCL 25 MG TABS 673110 HYDRALAZINE HCL Inactive SPIRONOLACTONE 50 MG TABS 1 tablet by mouth twice a day SPIRONOLACTONE 50 MG TABS 456056 SPIRONOLACTONE Inactive FENOFIBRATE 145 MG TABS Take one by mouth daily FENOFIBRATE 145 MG TABS 580457 FENOFIBRATE Inactive PROTONIX 40 MG SOLR 1 po qday for acid reflux PROTONIX 40 MG SOLR 981170 PANTOPRAZOLE SODIUM Inactive CEFDINIR 300 MG ORAL CAPS Take 1 cap po bid x 10 days CEFDINIR 300 MG ORAL CAPS 148168 CEFDINIR Inactive PREDNISONE 20 MG TAB 1 tablet twice daily for 2 days, then 1 tablet once daily for 2 days PREDNISONE 20 MG TAB 241544 PREDNISONE Inactive NYSTATIN 099850 UNIT/ML M/T SUSP 5mL po QID x 10 days NYSTATIN 010314 UNIT/ML M/T SUSP 488231 NYSTATIN Inactive BETADINE 10 % EXT SOLN wash with solution to treat follicultis BETADINE 10 % EXT SOLN 7841803 POVIDONE-IODINE Inactive TRILEPTAL 150 MG ORAL TABS 1 TAB PO Q HS TRILEPTAL 150 MG ORAL TABS 167181 OXCARBAZEPINE Inactive LAMISIL 125 MG ORAL PACK 1 TAB PO DAILY LAMISIL 125 MG ORAL PACK TERBINAFINE HCL Inactive HYDROCHLOROTHIAZIDE TABS Take one by mouth daily HYDROCHLOROTHIAZIDE TABS HYDROCHLOROTHIAZIDE TABS Inactive HYDROCODONE-ACETAMINOPHEN 5-325 MG TABS 1 tab by mouth BID prn back pain 2013 HYDROCODONE-ACETAMINOPHEN 5-325 MG TABS 796064 HYDROCODONE -ACETAMINOPHEN Inactive HYDRALAZINE HCL 50 MG ORAL TABS TWO BY MOUTH THREE TIMES DAILY HYDRALAZINE HCL 50 MG ORAL TABS 365723 HYDRALAZINE HCL Inactive LEVAQUIN 500 MG TAB 1 tablet by mouth daily for 7 days LEVAQUIN 500 MG TAB 347129 LEVOFLOXACIN Inactive SPIRONOLACTONE 25 MG TAB 4 tablets by mouth daily SPIRONOLACTONE 25 MG TAB 607580 SPIRONOLACTONE Inactive MECLIZINE HCL 25 MG TAB one 4 times a day as needed for dizziness MECLIZINE HCL 25 MG TAB 101711 MECLIZINE HCL Inactive CLONIDINE HCL 0.2 MG ORAL TABS 1 TAB BY MOUTH EVERY 8 HOURS 12/29 CLONIDINE HCL 0.2 MG ORAL TABS 876674 CLONIDINE HCL Inactive CYCLOBENZAPRINE HCL 10 MG TABS 1 tablet by mouth three times daily as needed for muscle spasm/pain for 10 days CYCLOBENZAPRINE HCL 10 MG TABS 416534 CYCLOBENZAPRINE HCL Inactive VITAMIN D3 01462 UNIT CAPS 2 CAPS PO WEEKLY VITAMIN D3 01924 UNIT CAPS CHOLECALCIFEROL Inactive FIORICET 50-300-40 MG ORAL CAPS take 1 tab po qday prn migraines. FIORICET 50-300-40 MG ORAL CAPS 318505 [id number] Inactive FLONASE 50 MCG/ACT SUSP 1 spray each nostril twice daily for allergies and runny nose FLONASE 50 MCG/ACT SUSP 8856732 FLUTICASONE PROPIONATE Inactive LORATADINE 10 MG TABS 1 tablet by mouth daily for congestion and allergies. LORATADINE 10 MG TABS 186840 LORATADINE Inactive NITROSTAT 0.4 MG SUBL PRN NITROSTAT 0.4 MG SUBL 794615 NITROGLYCERIN Inactive ZITHROMAX 250 MG TAB 2 po today, then 1 po q days 2-5 ZITHROMAX 250 MG TAB 5687619 AZITHROMYCIN Inactive TERBINAFINE HCL 250 MG TABS 1 tab po qday for foot infection 2014 TERBINAFINE HCL 250 MG TABS 155332 TERBINAFINE HCL Inactive KEFLEX 500 MG CAP 1 po TID x 10 days KEFLEX 500 MG CAP 813573 CEPHALEXIN Inactive BACTRIM DS 800-160 MG TAB 1 tab by mouth twice daily BACTRIM DS 800-160 MG TAB 789501 TRIMETHOPRIM-SULFAMETHOXAZOLE Inactive PREDNISONE 20 MG TAB take 3 tabs daily for 3 days, 2 tabs daily for 3 days, 1 tab daily for 3 days, 1/2 tab daily for 4 days PREDNISONE 20 MG TAB 594333 PREDNISONE Inactive Advance Directives Directive Description Start [...] % 11.6-14.8 platelet count 229 10^3/MM^3 10*3/mm3 987-521 2194/09/06 hemoglobin, blood 14.4 g/dL 13.5-17.5 erythrocyte (RBC) count 4.72 10^6/MM^3 10*6/mm3 4.69-6.13 leukocyte count, blood 9.7 10^3/MM^3 10*3/mm3 4.6-10.2 Lab Report: CBC W/DIFF, Comp. Metabolic Panel, CKI, UADIP W/MICRO, AUTO - Chemistry sodium, serum 142 mmol/L 757-068 3628/07/17 carbon dioxide, venous blood 28.2 mmol/L 21.0-32.0 [...] % 11.0-15.0 platelet count 185 THOUSAND/UL 10*3/mm3 775-195 2618/04/14 mean platelet volume 10.9 fL 7.5-12.5 erythrocyte (RBC) count 4.64 MILLION/UL 10*6/mm3 4.20-5.80 hemoglobin, blood 13.9 g/dL 13.2-17.1 hematocrit, blood 42.0 % 38.5-50.0 mean corpuscular volume, RBC 90.5 fL 80.0-100.0 mean corpuscular hemoglobin, RBC 29.9 pg 27.0-33.0 Lab Report: LIPID PANEL, TSH/899, T4, FREE/866 - Chemistry cholesterol, serum 220 mg/dL 358-562 5877/04/14 HDL cholesterol, serum 30 mg/dL > OR=40 triglyceride, serum, fasting 466 mg/dL <150 LDL cholesterol, serum SEE NOTE mg/dL (calc) mg/dL <130 cholesterol/HDL ratio, serum 7.3 (calc) < OR=5.0 Lab Report: MICROALB/CREAT W/RATIO - Chemistry albumin/creatinine ratio, urine < 30 mg/g mg/g{creat} 0-29 Lab Report: MICROALB/CREAT W/RATIO - Lab microalbumin, urine 80 0-19 Lab Report: VITAMIN D, 25-HYDROXY/00952 - Chemistry vitamin D 25-hydroxy, serum 25 ng/mL 30-100 Office Visit: Confusion, dizziness after fall - Basic LDL target level 130 mg/dL Office Visit: Confusion, dizziness after fall - Chemistry HDL cholesterol, serum, target level 40 mg/dL triglyceride, target level 150 mg/dL cholesterol, target level 200 mg/dL Encounters Code Encounter Date Provider Facility CPT-29476 Level 3 Est. Patient 09:00:37 CDT Rober Rodríguez [facility] CPT-33754 Level 3 Est. Patient 16:07:10 CDT Robbie Busby MD [facility] CPT-17447 Level 4 Est. Patient 11:56:16 CDT Erin Garsia [facility] CPT-58998 Level 3 Est. Patient 17:48:02 CDT Robbie Busby MD [facility] CPT-24106 Level 4 Est. Patient 12:00:49 [employer] Rober Rodríguez [facility] CPT-80020 Level 3 Est. Patient 09:16:37 CDT Robbie Busby MD [facility] CPT-86918 Level 3 Est. Patient 19:38:43 CDT Robbie Busby MD [facility] CPT-05293 Level 3 Est. Patient 11:53:38 CDT Robbie Busby MD [facility] CPT-29870 Level 4 Est. Patient 12:52:22 CDT Rober Rodríguez [facility] CPT-63203 Level 4 Est. Patient 22:55:17 CDT Robbie Busby MD [facility] CPT-69726 Level 3 Est. Patient 12:38:24 CDT Desmond Diaz DO [facility] CPT-09631 Level 4 Est. Patient 11:25:03 [employer] Robbie Busby MD [facility] CPT-88134 Level 4 Est. Patient 14:50:10 CDT Robbie Busby MD [facility] CPT-16192 Level 4 Est. Patient 23:30:43 CDT Robbie Busby MD [facility] CPT-12272 Level 4 Est. Patient 10:30:43 CDT Robbie Busby MD [facility] CPT-19934 Level 3 Est. Patient 17:08:12 CDT Alex ALVAREZ [facility] CPT-76734 Level 4 Est. Patient 17:51:38 CDT Robbie Busby MD [facility] CPT-02420 Level 4 Est. Patient 14:00:21 CDT Robbie Busby MD [facility] CPT-83853 Level 4 Est. Patient 12:46:48 CDT Robbie Busby MD [facility] CPT-77123 Level 4 Est. Patient 13:34:33 CDT Robbie Busby MD [facility] CPT-14189 Level 4 Est. Patient 16:58:28 CDT Robbie Busby MD [facility] CPT-30483 Level 3 Est. Patient 19:36:[address] [facility] CPT-45405 Level 3 Est. Patient 12:58:15 CDT Robbie Busby MD [facility] Procedures Code Procedure Name Date Entry Date Standard Description CPT-J1071 Depo Testosterone 200mg 08:24:00 CDT CPT-41097 Abx/Therapy Injection 08:24:00 CDT CPT-98496 Venipuncture Draw Fee 14:39:06 CDT CPT-09907 Ribs unilateral 2V - XRAY USE ONLY 12:10:11 CDT CPT-51496 First Vx - Ix admin for Medicare patients 16:32:53 CDT CPT-17561 Boostrix Intramuscular Suspension 5-2.5-18.5 16:32:53 CDT CPT-61143 TB Skin Test 11:42:28 CDT CPT-37127 Tdap 7yrs or > 11:42:28 CDT CPT-J0696 Rocephin 1000 mg (Ceftriaxone) 17:43:43 [employer] CPT-J1040 Depo Medrol 80 mg (Methyl Prednisolone Acetate) 17:43: 43 [employer] CPT-J1100 Decadron 8mg (Dexamethasone) 17:43:42 [employer] CPT-58821 Abx/Therapy Injection 17:43:42 [employer] CPT-52366 Abx/Therapy Injection 17:43:42 [employer] REPA[employer] CPT-J1040 Depo Medrol 80 mg (Methyl Prednisolone Acetate) 09:43: 34 [employer] CPT-J1100 Decadron 8mg (Dexamethasone) 09:43:34 [employer] CPT-J0696 Rocephin 1gm Inj Solr 09:43:34 [employer] CPT-98979 Wound Culture - LAB USE ONLY 14:00:21 CDT CPT-I/D I/D Abscess 09:16:37 CDT CPT-69780 Venipuncture Draw Fee 15:20:23 CDT CPT-28429 Microalbumin - LAB USE ONLY 16:02:19 CDT CPT-37995 CBC - LAB USE ONLY 16:02:19 CDT CPT-61767 Venipuncture Draw Fee 16:02:19 CDT CPT-G0438 [facility] Initial Annual Wellness Exam 08:10:28 CDT CPT-02682 Venipuncture Draw Fee 13:07:17 CDT CPT-G0008 Administration of Influenza Virus Vaccine 16:09:59 CDT CPT-95716 Fluzone Quadrivalent Intramuscular Suspension 0.5 ML 16: 09:59 CDT CPT-01852 Spec Collection and Handling Fee 15:05:50 CDT
--- OUTSIDE RECORDS SUMMARY | 2018-04-18 15:31 | XMS REPORT | Clinical Summary ---
Author Author Admin, AKUA Organization [facility] Address Unknown Phone Unavailable Allergies, Adverse [...] III 585.3 Active Ca Garcia [facility] Chronic kidney disease, Stage III (moderate) C V A / Stroke Active Robbie Busby MD Myocardial Infarction: Active Robbie Busby MD Acute myocardial infarction, unspecified site, initial episode of care ( History of) Sleep apnea, chronic 780.57 Active Erin Garsia HANDLE MAKER Unspecified sleep apnea Continuous positive airway pressure rx V46.2 Active Erin Garsia HANDLE MAKER Other dependence on machines, 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 Fatigue 780.79 Resolved Desmond Diaz DO Other malaise and fatigue Hypertension, secondary, 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2 Active Erin Garsia HANDLE MAKER Other testicular hypofunction Low back pain, chronic 724.2 Active Robbie Busby MD Lumbago Bronchitis-Acute 466.0 Inactive Desmond Howell Joe DO Acute bronchitis Polydipsia 783.5 Active Desmond Dante Joe DO Polydipsia Sinusitis ICD-461.9 Inactive Emily Atwood [employer]ER 2017 Low back pain, acute ICD-724.2 Inactive Emily Atwood [employer] Low back pain, chronic ICD-724.2 Inactive Emily Atwood [employer] Bronchitis, acute ICD-466.0 Inactive Emily Atwood [employer] Onychomycosis, toenails ICD-110.1 Inactive Emily Atwood [employer] Dizziness ICD-780.4 Inactive Emily Atwood [employer] IN[employer] 2017 Folliculitis ICD-704.8 Inactive Emily Atwood [employer] Pharyngitis-Acute ICD-462 Inactive Emily Atwood [employer] Fatigue ICD-780.79 Inactive Emily Atwood [employer] 09/20 Hypertension, secondary, malignant ICD-405.09 Inactive Emily Atwood [employer] Insect bite, infected ICD-919.5 Inactive Emily Atwood [employer] Abscess, skin ICD-682.9 Inactive Emily Atwood [employer] IN[employer] URI ICD-465.9 Inactive Emily Atwood [employer] IN[employer] Sinusitis - acute ICD-461.9 Inactive Emily Atwood [employer] Acute confusion ICD-293.0 Inactive Emily Atwood [employer] Headache ICD-784.0 Inactive Emily Atwood [employer] 09/20 Back pain ICD-724.5 Inactive Emily Atwood [employer] 2017 Rib pain, right sided ICD-786.50 Inactive Emily Atwood [employer] Myalgias ICD-729.1 Inactive Emily Atwood [employer] 09/20 URI ICD-465.9 Inactive Emily Atwood TANNA Bronchitis-Acute ICD-466.0 Inactive Desmond Diaz DO Medication List Medication Instructions Start Date Stop Date Generic Name ND Status Provider Patient Instruction CYCLOBENZAPRINE HCL 10 MG ORAL TABLET 1 tablet by mouth three times daily as needed for muscle spasm/pain CYCLOBENZAPRINE HCL 49465770295 Active Robbie Busby MD Active METFORMIN HCL 500 MG ORAL TABLET 1 tablet by mouth daily for diabetes type 2 METFORMIN HCL 15672314201 Active Robbie Busby MD Active SINGULAIR 10 MG ORAL TABLET 1 po qday for allergies. MONTELUKAST SODIUM 51436784425 Active Robbie Busby MD Active PREDNISONE 20 MG ORAL TABLET two tabs by mouth today, then one tab by mouth days two and three PREDNISONE 15960428058 No Longer Active Robbie Busby MD Active TOPIRAMATE 50 MG ORAL TABLET 1 po BID for migraines TOPIRAMATE 77633764485 Active JONATHAN Moncada Active AZITHROMYCIN 250 MG ORAL TABLET 2 po qd x 1 day, then 1 po qd x 4 days 09/20 AZITHROMYCIN 97129943803 No Longer Active Desmond Diaz DO Active TOPIRAMATE 50 MG ORAL TABLET take 1 tab po BID for migraines. TOPIRAMATE 44763510517 No Longer Active Desmond Diaz DO Active CYCLOBENZAPRINE HCL 10 MG ORAL TABLET 1 po TID PRN muscle spasm/pain for 10 days CYCLOBENZAPRINE HCL 67324756029 No Longer Active Desmond Diaz DO Active GUAIFENESIN ER 600 MG ORAL TABLET EXTENDED RELEASE 12 HOUR 1 tab po q am 2016 GUAIFENESIN 08237873466 No Longer Active Robbie Busby MD Active DIVALPROEX SODIUM ER 500 MG ORAL TABLET EXTENDED RELEASE 24 HOUR Once daily DIVALPROEX SODIUM 74512469191 Active Robbie Busby MD Active DEPO-TESTOSTERONE 200 MG/ML INTRAMUSCULAR SOLUTION 1 IM Injections every 2 weeks for low testosterone TESTOSTERONE CYPIONATE 31015631048 Active Zulema Blank LPN Active FLUTICASONE PROPIONATE 50 MCG/ACT NASAL SUSPENSION 2 sprays per nostril bid for 1 week, then 1 spray bid FLUTICASONE PROPIONATE 82491235351 Active Rober Rodríguez APRN Active HYDRALAZINE HCL 25 MG ORAL TABLET Take 1 tab BID. HYDRALAZINE HCL 71773697566 Active Rober Rodríguez APRN Active VITAMIN D3 32011 UNIT ORAL TABLET 2 po weekly CHOLECALCIFEROL 97475553779 Active Robbie Busby MD Active OXYCODONE HCL ER 10 MG ORAL TABLET ER 12 HOUR ABUSE-DETERRENT 1 tab po 3 times qd. OXYCODONE HCL 97195160326 Active Robbie Busby MD Active NITROSTAT 0.4 MG SUBLINGUAL TABLET SUBLINGUAL PRN NITROGLYCERIN 47267997941 No Longer Active Robbie Busby MD Active LORATADINE 10 MG ORAL TABLET 1 tablet by mouth daily for congestion and allergies. LORATADINE 35594701360 No Longer Active Robbie Busby MD Active FLONASE 50 MCG/ACT NASAL SUSPENSION 1 spray each nostril twice daily for allergies and runny nose FLUTICASONE PROPIONATE 01908670406 No Longer Active Robbie Busby MD Active FIORICET 50-300-40 MG ORAL CAPSULE take 1 tab po qday prn migraines. [id number] 09086422688 No Longer Active Robbie Busby MD Active VITAMIN D3 47899 UNIT ORAL CAPSULE 2 CAPS PO WEEKLY CHOLECALCIFEROL 19402641360 No Longer Active Robbie Busby MD Active CYCLOBENZAPRINE HCL 10 MG ORAL TABLET 1 tablet by mouth three times daily as needed for muscle spasm/pain for 10 days CYCLOBENZAPRINE HCL 91221688945 No Longer Active Robbie Busby MD Active PREDNISONE 20 MG ORAL TABLET take 3 tabs daily for 3 days, 2 tabs daily for 3 days, 1 tab daily for 3 days, 1/2 tab daily for 4 days PREDNISONE 66242984342 No Longer Active Erin Garsia APRN Active CLONIDINE HCL 0.2 MG ORAL TABLET 1 TAB BY MOUTH EVERY 8 HOURS CLONIDINE HCL 75233405948 No Longer Active Erin Garsia APRN Active MECLIZINE HCL 25 MG ORAL TABLET one 4 times a day as needed for dizziness MECLIZINE HCL 21521582993 No Longer Active Erin Garsia HANDLE MAKER Active SPIRONOLACTONE 25 MG ORAL TABLET 4 tablets by mouth daily SPIRONOLACTONE 82075658163 No Longer Active Erin Garsia APRN Active LEVAQUIN 500 MG ORAL TABLET 1 tablet by mouth daily for 7 days LEVOFLOXACIN 65074682610 No Longer Active Erin Garsia APRN Active BACTRIM DS 800-160 MG ORAL TABLET 1 tab by mouth twice daily 2015 TRIMETHOPRIM-SULFAMETHOXAZOLE 25002921798 No Longer Active Robbie Busby MD Active HYDRALAZINE HCL 50 MG ORAL TABLET TWO BY MOUTH THREE TIMES DAILY HYDRALAZINE HCL 41510318774 No Longer Active Rober Rodríguez APRN Active HYDROCODONE-ACETAMINOPHEN 5-325 MG ORAL TABLET 1 tab by mouth BID prn back pain HYDROCODONE-ACETAMINOPHEN 28907125562 No Longer Active Jillina Zulemal HANDLE MAKER Active HYDROCHLOROTHIAZIDE TABLET Take one by mouth daily HYDROCHLOROTHIAZIDE TABS 00297645768 No Longer Active Jillina Frakierstenl HANDLE MAKER Active LAMISIL 125 MG ORAL PACKET 1 TAB PO DAILY TERBINAFINE HCL 03010233925 No Longer Active Jillina Frazell HANDLE MAKER Active TRILEPTAL 150 MG ORAL TABLET 1 TAB PO Q HS OXCARBAZEPINE 66724077507 No Longer Active Jillina Frazell HANDLE MAKER Active BETADINE 10 % EXTERNAL SOLUTION wash with solution to treat follicultis 07/29 POVIDONE-IODINE 73677939234 No Longer Active Rober Rodríguez APRN Active NYSTATIN 343025 UNIT/ML MOUTH/THROAT SUSPENSION 5mL po QID x 10 days NYSTATIN 09382378614 No Longer Active Erin Garsia APRN Active PREDNISONE 20 MG ORAL TABLET 1 tablet twice daily for 2 days, then 1 tablet once daily for 2 days PREDNISONE 93912810342 No Longer Active Robbie Busby MD Active CEFDINIR 300 MG ORAL CAPSULE Take 1 cap po bid x 10 days CEFDINIR 98645058204 No Longer Active Robibe Busby MD Active AMLODIPINE BESYLATE 10 MG ORAL TABLET 1 tablet by mouth daily AMLODIPINE BESYLATE 47686673652 Active Robbie Busby MD Active CARVEDILOL 25 MG ORAL TABLET 1 & 1/2 TAB po BID CARVEDILOL 47161919625 Active Robbie Busby MD Active NEXIUM 40 MG ORAL CAPSULE DELAYED RELEASE 1 cap by mouth daily ESOMEPRAZOLE MAGNESIUM 72766176160 Active Robbie Busby MD Active PROTONIX 40 MG INTRAVENOUS SOLUTION RECONSTITUTED 1 po qday for acid reflux PANTOPRAZOLE SODIUM 92122021381 No Longer Active Gali Raida Active KEFLEX 500 MG ORAL CAPSULE 1 po TID x 10 days CEPHALEXIN 86584871646 No Longer Active Robbie Busby MD Active TEMAZEPAM 15 MG ORAL CAPSULE 1 TAB PO Q HS TEMAZEPAM 08063165064 Active Robbie Busby MD Active ALPRAZOLAM 2 MG ORAL TABLET 1 TAB PO BID ALPRAZOLAM 72391745824 Active Robbie Busby MD Active FENOFIBRATE 145 MG ORAL TABLET Take one by mouth daily FENOFIBRATE 52109788101 No Longer Active Robbie Busby MD Active SPIRONOLACTONE 50 MG ORAL TABLET 1 tablet by mouth twice a day SPIRONOLACTONE 61802189633 No Longer Active Robbie Busby MD Active HYDRALAZINE HCL 25 MG ORAL TABLET 1 tablet by mouth tid for hypertension 2013 HYDRALAZINE HCL 40351450194 No Longer Active Robbie Busby MD Active VIIBRYD 40 MG ORAL TABLET take 1 tab po qday for depression. 2014 VILAZODONE HCL 51078102624 No Longer Active Robbie Busby MD Active TERBINAFINE HCL 250 MG ORAL TABLET 1 tab po qday for foot infection TERBINAFINE HCL 08622542455 No Longer Active Robbie Busby MD Active GABAPENTIN 300 MG ORAL CAPSULE 1 po q hs for nerve pain GABAPENTIN 79149751542 Active Robbie Busby MD Active CHERATUSSIN AC 100-10 MG/5ML ORAL SOLUTION 7.5 mL PO q 4-6 hrs PRN cough 2014 GUAIFENESIN-CODEINE 26022802660 No Longer Active Robbie Busby MD Active AZITHROMYCIN 250 MG ORAL TABLET 2 tablets PO today---then, 1 tablet PO daily x 4 more days (and 1 optional refill) AZITHROMYCIN 26608596607 No Longer Active Robbie Busby MD Active NORVASC 10 MG ORAL TABLET 1 tablet by mouth daily AMLODIPINE BESYLATE 16358906087 No Longer Active Alex ALVAREZ Active IMDUR 60 MG ORAL TABLET EXTENDED RELEASE 24 HOUR take 1 tab po qday for blood pressure ISOSORBIDE MONONITRATE 06870919563 Active Robbie Busby MD Active ISOSORBIDE DINITRATE 30 MG ORAL TABLET Take one by mouth daily ISOSORBIDE DINITRATE 52515630827 No Longer Active Robbie Busby MD Active VIIBRYD 40 MG ORAL TABLET 1 TA B PO DAILY VILAZODONE HCL 58721655429 Active Robbie Busby MD Active ZITHROMAX 250 MG ORAL TABLET 2 po today, then 1 po q days 2-5 AZITHROMYCIN 18099699610 No Longer Active Robbie Busby MD Active [id number] 0.3 MG/24HR TRANSDERMAL PATCH WEEKLY apply 2 patches q week for HTN CLONIDINE HCL 26177073216 Active Robbie Busby MD Active DOXAZOSIN MESYLATE 4 MG ORAL TABLET Take one by mouth daily DOXAZOSIN MESYLATE 12413939921 Active Robbie Busby MD Active TOPROL XL 200 MG ORAL TABLET EXTENDED RELEASE 24 HOUR Take one by mouth daily METOPROLOL SUCCINATE 36843032972 Active Robbie Busby MD Active VENLAFAXINE HCL ER 150 MG ORAL TABLET EXTENDED RELEASE 24 HOUR Take one by mouth daily VENLAFAXINE HCL 92220017180 Active Robbie Busby MD Active LIPITOR 40 MG ORAL TABLET Take one by mouth daily ATORVASTATIN CALCIUM 61939727691 Active Robbie Busby MD Active ISOSORBIDE DINITRATE 30 MG ORAL TABLET Take one by mouth daily ISOSORBIDE DINITRATE 30 MG ORAL TABLET 005748 ISOSORBIDE DINITRATE Inactive NORVASC 10 MG ORAL TABLET 1 tablet by mouth daily NORVASC 10 MG ORAL TABLET 188532 AMLODIPINE BESYLATE Inactive AZITHROMYCIN 250 MG ORAL TABLET 2 tablets PO today---then, 1 tablet PO daily x 4 more days (and 1 optional refill) AZITHROMYCIN 250 MG ORAL TABLET 250337 AZITHROMYCIN Inactive CHERATUSSIN AC 100-10 MG/5ML ORAL SOLUTION 7.5 mL PO q 4-6 hrs PRN cough 2014 CHERATUSSIN AC 100-10 MG/5ML ORAL SOLUTION 240389 GUAIFENESIN-CODEINE Inactive VIIBRYD 40 MG ORAL TABLET take 1 tab po qday for depression. 2014 VIIBRYD 40 MG ORAL TABLET VILAZODONE HCL Inactive HYDRALAZINE HCL 25 MG ORAL TABLET 1 tablet by mouth tid for hypertension 2013 HYDRALAZINE HCL 25 MG ORAL TABLET 179585 HYDRALAZINE HCL Inactive SPIRONOLACTONE 50 MG ORAL TABLET 1 tablet by mouth twice a day SPIRONOLACTONE 50 MG ORAL TABLET 026896 SPIRONOLACTONE Inactive FENOFIBRATE 145 MG ORAL TABLET Take one by mouth daily FENOFIBRATE 145 MG ORAL TABLET 760075 FENOFIBRATE Inactive PROTONIX 40 MG INTRAVENOUS SOLUTION RECONSTITUTED 1 po qday for acid reflux PROTONIX 40 MG INTRAVENOUS SOLUTION RECONSTITUTED 659931 PANTOPRAZOLE SODIUM Inactive CEFDINIR 300 MG ORAL CAPSULE Take 1 cap po bid x 10 days CEFDINIR 300 MG ORAL CAPSULE 793915 CEFDINIR Inactive PREDNISONE 20 MG ORAL TABLET 1 tablet twice daily for 2 days, then 1 tablet once daily for 2 days PREDNISONE 20 MG ORAL TABLET 046340 PREDNISONE Inactive NYSTATIN 449139 UNIT/ML MOUTH/THROAT SUSPENSION 5mL po QID x 10 days NYSTATIN 385334 UNIT/ML MOUTH/THROAT SUSPENSION 528959 NYSTATIN Inactive BETADINE 10 % EXTERNAL SOLUTION wash with solution to treat follicultis 07/29 BETADINE 10 % EXTERNAL SOLUTION 0375777 POVIDONE-IODINE Inactive TRILEPTAL 150 MG ORAL TABLET 1 TAB PO Q HS TRILEPTAL 150 MG ORAL TABLET 529556 OXCARBAZEPINE Inactive LAMISIL 125 MG ORAL PACKET 1 TAB PO DAILY LAMISIL 125 MG ORAL PACKET TERBINAFINE HCL Inactive HYDROCHLOROTHIAZIDE TABLET Take one by mouth daily HYDROCHLOROTHIAZIDE TABLET HYDROCHLOROTHIAZIDE TABS Inactive HYDROCODONE-ACETAMINOPHEN 5-325 MG ORAL TABLET 1 tab by mouth BID prn back pain HYDROCODONE-ACETAMINOPHEN 5-325 MG ORAL TABLET 469480 HYDROCODONE-ACETAMINOPHEN Inactive HYDRALAZINE HCL 50 MG ORAL TABLET TWO BY MOUTH THREE TIMES DAILY HYDRALAZINE HCL 50 MG ORAL TABLET 758296 HYDRALAZINE HCL Inactive LEVAQUIN 500 MG ORAL TABLET 1 tablet by mouth daily for 7 days LEVAQUIN 500 MG ORAL TABLET 645108 LEVOFLOXACIN Inactive SPIRONOLACTONE 25 MG ORAL TABLET 4 tablets by mouth daily SPIRONOLACTONE 25 MG ORAL TABLET 916204 SPIRONOLACTONE Inactive MECLIZINE HCL 25 MG ORAL TABLET one 4 times a day as needed for dizziness MECLIZINE HCL 25 MG ORAL TABLET 183445 MECLIZINE HCL Inactive CLONIDINE HCL 0.2 MG ORAL TABLET 1 TAB BY MOUTH EVERY 8 HOURS CLONIDINE HCL 0.2 MG ORAL TABLET 273448 CLONIDINE HCL Inactive CYCLOBENZAPRINE HCL 10 MG ORAL TABLET 1 tablet by mouth three times daily as needed for muscle spasm/pain for 10 days CYCLOBENZAPRINE HCL 10 MG ORAL TABLET 924712 CYCLOBENZAPRINE HCL Inactive VITAMIN D3 14134 UNIT ORAL CAPSULE 2 CAPS PO WEEKLY VITAMIN D3 28330 UNIT ORAL CAPSULE CHOLECALCIFEROL Inactive FIORICET 50-300-40 MG ORAL CAPSULE take 1 tab po qday prn migraines. FIORICET 50-300-40 MG ORAL CAPSULE 858537 BUTALBITAL-APAP- CAFFEINE Inactive FLONASE 50 MCG/ACT NASAL SUSPENSION 1 spray each nostril twice daily for allergies and runny nose FLONASE 50 MCG/ACT NASAL SUSPENSION 5173216 FLUTICASONE PROPIONATE Inactive LORATADINE 10 MG ORAL TABLET 1 tablet by mouth daily for congestion and allergies. LORATADINE 10 MG ORAL TABLET 628790 LORATADINE Inactive NITROSTAT 0.4 MG SUBLINGUAL TABLET SUBLINGUAL PRN NITROSTAT 0.4 MG SUBLINGUAL TABLET SUBLINGUAL 796521 NITROGLYCERIN Inactive GUAIFENESIN ER 600 MG ORAL TABLET EXTENDED RELEASE 12 HOUR 1 tab po q am 2016 GUAIFENESIN ER 600 MG ORAL TABLET EXTENDED RELEASE 12 HOUR GUAIFENESIN Inactive CYCLOBENZAPRINE HCL 10 MG ORAL TABLET 1 po TID PRN muscle spasm/pain for 10 days CYCLOBENZAPRINE HCL 10 MG ORAL TABLET 473643 CYCLOBENZAPRINE HCL Inactive TOPIRAMATE 50 MG ORAL TABLET take 1 tab po BID for migraines. TOPIRAMATE 50 MG ORAL TABLET 963240 TOPIRAMATE Inactive PREDNISONE 20 MG ORAL TABLET two tabs by mouth today, then one tab by mouth days two and three PREDNISONE 20 MG ORAL TABLET 756198 PREDNISONE Inactive ZITHROMAX 250 MG ORAL TABLET 2 po today, then 1 po q days 2-5 ZITHROMAX 250 MG ORAL TABLET 128618 AZITHROMYCIN Inactive TERBINAFINE HCL 250 MG ORAL TABLET 1 tab po qday for foot infection TERBINAFINE HCL 250 MG ORAL TABLET 701748 TERBINAFINE HCL Inactive KEFLEX 500 MG ORAL CAPSULE 1 po TID x 10 days KEFLEX 500 MG ORAL CAPSULE 557237 CEPHALEXIN Inactive BACTRIM DS 800-160 MG ORAL TABLET 1 tab by mouth twice daily 2015 BACTRIM DS 800-160 MG ORAL TABLET 175067 TRIMETHOPRIM- SULFAMETHOXAZOLE Inactive PREDNISONE 20 MG ORAL TABLET take 3 tabs daily for 3 days, 2 tabs daily for 3 days, 1 tab daily for 3 days, 1/2 tab daily for 4 days PREDNISONE 20 MG ORAL TABLET 687310 PREDNISONE Inactive AZITHROMYCIN 250 MG ORAL TABLET 2 po qd x 1 day, then 1 po qd x 4 days 09/20 AZITHROMYCIN 250 MG ORAL TABLET 318768 AZITHROMYCIN Inactive Advance Directives Directive Description Start [...] AUTO - Chemistry sodium, serum 142 mmol/L 419-892 8883/07/17 carbon dioxide, venous blood 28.2 mmol/L 21.0-32.0 [...] % 11.0-15.0 platelet count 185 THOUSAND/UL 10*3/mm3 966-900 5340/04/14 mean platelet volume 10.9 fL 7.5-12.5 Lab Report: HGBA1C, Basic Metabolic Panel - Chemistry hemoglobin A1C, blood, as % of total hemoglobin 6.9 % 4.3-6.0 sodium, serum 139 mmol/L 495-079 9167/01/04 potassium, serum 3.9 mmol/L 3.5-5.2 chloride, serum 103 mmol/L 98-107 carbon dioxide, venous blood 26.9 mmol/L 21.0-32.0 blood glucose 106 mg/dL 65-110 calcium, serum 9.0 mg/dL 8.5-10.1 urea nitrogen, blood 20 mg/dL 7-18 creatinine, serum 1.46 mg/dL 0.60-1.30 Lab Report: LIPID PANEL, TSH/899, T4, FREE/866 - Chemistry cholesterol, serum 220 mg/dL 867-595 7135/04/14 HDL cholesterol, serum 30 mg/dL > OR=40 [...] 1.80 ng/mL 0.00-4.00 Lab Report: VITAMIN D, 25-HYDROXY/15692 - Chemistry vitamin D 25-hydroxy, serum 25 ng/mL 30-100 Office Visit: Confusion, dizziness after fall - Basic LDL target level 130 mg/dL Office Visit: Confusion, dizziness after fall - Chemistry HDL cholesterol, serum, target level 40 mg/dL triglyceride, target level 150 mg/dL cholesterol, target level 200 mg/dL Encounters Code Encounter Date Provider Facility CPT-98698 Level 4 Est. Patient 15:23:44 TAPE CALENDER Desmond Diaz DO [facility] CPT-94606 Level 3 Est. Patient 15:40:49 CDT Robibe Busby MD [facility] CPT-11970 Level 4 Est. Patient 15:18:19 CDT Robbie Busby MD [facility] CPT-53223 Level 3 Est. Patient 09:00:37 CDT Jillina Frazell [facility] CPT-12698 Level 3 Est. Patient 16:07:10 CDT Robbie Busby MD [facility] CPT-45501 Level 4 Est. Patient 11:56:16 CDT Erin Garsia [facility] CPT-82885 Level 3 Est. Patient 17:48:02 CDT Robbie Busby MD [facility] CPT-43117 Level 4 Est. Patient 12:00:49 TAPE CALENDER Rober Rodríguez [facility] CPT-96594 Level 3 Est. Patient 09:16:37 CDT Robbie Busby MD [facility]-13490 Level 3 Est. Patient 19:38:43 CDT Robbie Busby MD [facility] CPT-21352 Level 3 Est. Patient 11:53:38 CDT Robbie Busby MD [facility] CPT-22848 Level 4 Est. Patient 12:52:22 CDT Rober Rodríguez [facility] CPT-31621 Level 4 Est. Patient 22:55:17 CDT Robbie Busby MD [facility] CPT-36037 Level 3 Est. Patient 12:38:24 CDT Desmond Diaz DO [facility] CPT-31109 Level 4 Est. Patient 11:25:03 TAPE CALENDER Robbie Busby MD [facility] CPT-76273 Level 4 Est. Patient 14:50:10 CDT Robbie Busby MD [facility] CPT-53824 Level 4 Est. Patient 23:30:43 CDT Robbie Busby MD [facility] CPT-17731 Level 4 Est. Patient 10:30:43 CDT Robbie Busby MD [facility] CPT-55765 Level 3 Est. Patient 17:08:12 CDT Alex ALVAREZ [facility] CPT-90550 Level 4 Est. Patient 17:51:38 CDT Robbie Busby MD [facility] CPT-38884 Level 4 Est. Patient 14:00:21 CDT Robbie Busby MD [facility] CPT-92751 Level 4 Est. Patient 12:46:48 CDT Robbie Busby MD [facility] CPT-22854 Level 4 Est. Patient 13:34:33 CDT Robbie Busby MD [facility] CPT-90027 Level 4 Est. Patient 16:58:28 CDT Robbie Busby MD [facility] CPT-99621 Level 3 Est. Patient 19:36:53 CDT Alex Shaw [facility] CPT-41224 Level 3 Est. Patient 12:58:15 CDT Robbie Busby MD [facility] Procedures Code Procedure Name Date Entry Date Standard Description CPT-J1071 Depo Testosterone 200mg 15:33:58 TAPE CALENDER CPT-29321 Abx/Therapy Injection 15:33:58 TAPE CALENDER CPT-J1071 Depo Testosterone 200mg 09:38:36 TAPE CALENDER CPT-76324 Abx/Therapy Injection 09:38:36 TAPE CALENDER CPT-J1071 Depo Testosterone 200mg 10:22:56 TAPE CALENDER CPT-05062 Abx/Therapy Injection 10:22:56 TAPE CALENDER CPT-J1071 Depo Testosterone 200mg 15:40:23 CDT CPT-25638 Abx/Therapy Injection 15:40:23 CDT CPT-J1071 Depo Testosterone 200mg 14:20:43 CDT CPT-76735 Abx/Therapy Injection 14:20:43 CDT CPT-J1071 Depo Testosterone 200mg 14:17:22 CDT CPT-32145 Abx/Therapy Injection 14:17:22 CDT CPT-J1071 Depo Testosterone 200mg 09:03:53 CDT CPT-21590 Abx/Therapy Injection 09:03:53 CDT CPT-G0439 [facility] Annual Wellness Exam 16:47:44 CDT CPT-J1071 Depo Testosterone 200mg 09:06:28 CDT CPT-49079 Abx/Therapy Injection 09:06:28 CDT CPT-J1071 Depo Testosterone 200mg 08:30:01 CDT CPT-98219 Abx/Therapy Injection 08:30:01 CDT CPT-J1071 Depo Testosterone 200mg 08:24:00 CDT CPT-67105 Abx/Therapy Injection 08:24:00 CDT CPT-99092 Venipuncture Draw Fee 14:39:06 CDT CPT-92008 Ribs unilateral 2V - XRAY USE ONLY 12:10:11 CDT CPT-16518 First Vx - Ix admin for Medicare patients 16:32:53 CDT CPT-07372 Boostrix Intramuscular Suspension 5-2.5-18.5 16:32:53 CDT CPT-44462 TB Skin Test 11:42:28 CDT CPT-68583 Tdap 7yrs or > 11:42:28 CDT CPT-J0696 Rocephin 1000 mg (Ceftriaxone) 17:43:43 TAPE CALENDER CPT-J1040 Depo Medrol 80 mg (Methyl Prednisolone Acetate) 17:43: 43 TAPE CALENDER CPT-J1100 Decadron 8mg (Dexamethasone) 17:43:42 TAPE CALENDER CPT-31444 Abx/Therapy Injection 17:43:42 TAPE CALENDER CPT-03934 Abx/Therapy Injection 17:43:42 TAPE CALENDER CPT-J1040 Depo Medrol 80 mg (Methyl Prednisolone Acetate) 09:43: 34 TAPE CALENDER CPT-J1100 Decadron 8mg (Dexamethasone) 09:43:34 TAPE CALENDER CPT-J0696 Rocephin 1gm Inj Solr 09:43:34 TAPE CALENDER CPT-99049 Wound Culture - LAB USE ONLY 14:00:21 CDT CPT-I/D I/D Abscess 09:16:37 CDT CPT-84393 Venipuncture Draw Fee 15:20:23 CDT CPT-04866 Microalbumin - LAB USE ONLY 16:02:19 CDT CPT-33873 CBC - LAB USE ONLY 16:02:19 CDT CPT-18036 Venipuncture Draw Fee 16:02:19 CDT CPT-G0438 Initial Annual Wellness Exam 08:10:28 CDT CPT-07639 Venipuncture Draw Fee 13:07:17 CDT CPT-G0008 Administration of Influenza Virus Vaccine 16:09:59 CDT CPT-91938 Fluzone Quadrivalent Intramuscular Suspension 0.5 ML 16: 09:59 CDT CPT-87018 Spec Collection and Handling Fee 15:05:50 CDT
--- OUTSIDE RECORDS SUMMARY | 2018-04-18 15:33 | XMS REPORT | Clinical Summary ---
Author Author Admin, [facility] Organization [facility] Address Unknown Phone Unavailable Allergies, [...] MD Unspecified essential hypertension Hyperlipidemia 272.4 Active Rbobie Busby MD Other and unspecified hyperlipidemia Renal [...] NDC Status Provider Patient Instruction VITAMIN D3 79216 UNIT CAPS 1 CAP PO WEEKLY CHOLECALCIFEROL 18708844324 Active Vanessa August Active CEFDINIR 300 MG ORAL CAPS Take 1 cap po bid x 10 days CEFDINIR 17709595380 Active Jackie Junior MA Active PREDNISONE 20 MG TAB 1 tablet twice daily for 2 days, then 1 tablet once daily for 2 days PREDNISONE 14226933389 Active Desmond Diaz DO Active NEXIUM 40 MG CPDR 1 cap by mouth daily ESOMEPRAZOLE MAGNESIUM 33425199077 Active Gali Negro Active PROTONIX 40 MG SOLR 1 po qday for acid reflux PANTOPRAZOLE SODIUM 57231957306 No Longer Active Galileonila Negro Active BETADINE 10 % EXT SOLN wash with solution to treat follicultis POVIDONE-IODINE 46990247267 Active Robbie Busby MD Active KEFLEX 500 MG CAP 1 po TID x 10 days CEPHALEXIN 54076727697 No Longer Active Robbie Busby MD Active FIORICET 50-300-40 MG ORAL CAPS take 1 tab po qday prn migraines. [id number] 87088456097 Active Robbie Busby MD Active TOPIRAMATE 50 MG ORAL TABS take 1 tab po BID for migraines. TOPIRAMATE 35110190302 Active Robbie Busby MD Active HYDRALAZINE HCL 50 MG ORAL TABS TWO BY MOUTH THREE TIMES DAILY HYDRALAZINE HCL 60231053939 Active Robbie Busby MD Active MECLIZINE HCL 25 MG TAB one 4 times a day as needed for dizziness MECLIZINE HCL 92101889586 Active Robbie Busby MD Active TRILEPTAL 150 MG ORAL TABS 1 TAB PO Q HS OXCARBAZEPINE 38278423529 Active Robbie Busby MD Active TEMAZEPAM 15 MG ORAL CAPS 1 TAB PO Q HS TEMAZEPAM 00156770109 Active Robbie Busby MD Active ALPRAZOLAM 2 MG ORAL TABS 1 TAB PO BID ALPRAZOLAM 94333247800 Active Robbie Busby MD Active FENOFIBRATE 145 MG TABS Take one by mouth daily FENOFIBRATE 38490560762 No Longer Active Robbie Busby MD Active LAMISIL 125 MG ORAL PACK 1 TAB PO DAILY TERBINAFINE HCL 51689832279 Active Robbie Busby MD Active SPIRONOLACTONE 50 MG TABS 1 tablet by mouth twice a day SPIRONOLACTONE 54840780006 No Longer Active Robbie Busby MD Active HYDRALAZINE HCL 25 MG TABS 1 tablet by mouth tid for hypertension HYDRALAZINE HCL 74595527787 No Longer Active Robbie Busby MD Active VIIBRYD 40 MG TABS take 1 tab po qday for depression. VILAZODONE HCL 65227947129 No Longer Active Robbie Busby MD Active TERBINAFINE HCL 250 MG TABS 1 tab po qday for foot infection 2014 TERBINAFINE HCL 16032742920 No Longer Active Robbie Busby MD Active GABAPENTIN 300 MG CAPS 1 po q hs for nerve pain GABAPENTIN 57743849583 Active Robbie Busby MD Active FLONASE 50 MCG/ACT SUSP 1 spray each nostril twice daily for allergies and runny nose FLUTICASONE PROPIONATE 74129602301 Active Robbie Busby MD Active CHERATUSSIN AC 100-10 MG/5ML ORAL SOLN 7.5 mL PO q 4-6 hrs PRN cough GUAIFENESIN-CODEINE 17939613647 No Longer Active Robbie Busby MD Active AZITHROMYCIN 250 MG ORAL TABS 2 tablets PO today---then, 1 tablet PO daily x 4 more days (and 1 optional refill) AZITHROMYCIN 69160685591 No Longer Active Robbie Busby MD Active CLONIDINE HCL 0.2 MG ORAL TABS 1 TAB BY MOUTH EVERY 8 HOURS CLONIDINE HCL 65598446405 Active Robbie Busby MD Active HYDROCHLOROTHIAZIDE TABS Take one by mouth daily HYDROCHLOROTHIAZIDE TABS 27520135104 Active Alex ALVAREZ Active NORVASC 10 MG TAB 1 tablet by mouth daily AMLODIPINE BESYLATE 24773262273 No Longer Active Alex ALVAREZ Active IMDUR 60 MG TAB CR take 1 tab po qday for blood pressure ISOSORBIDE MONONITRATE Active Robbie Busby MD Active ISOSORBIDE DINITRATE 30 MG TABS Take one by mouth daily ISOSORBIDE DINITRATE 48050726438 No Longer Active Robbie Busby MD Active VIIBRYD 40 MG TABS 1 TA B PO DAILY VILAZODONE HCL 10221593739 Active Erin Garsia APRN Active LORATADINE 10 MG TABS 1 tablet by mouth daily for congestion and allergies. LORATADINE 79191010231 Active Robbie Busby MD Active ZITHROMAX 250 MG TAB 2 po today, then 1 po q days 2-5 AZITHROMYCIN 81071043000 No Longer Active Robbie Busby MD Active HYDROCODONE-ACETAMINOPHEN 5-325 MG TABS 1 tab by mouth BID prn back pain 2013 HYDROCODONE-ACETAMINOPHEN 34743808380 Active Robbie Busby MD Active KLDCILWB-PNX-3 0.3 MG/24HR PTWK apply 2 patches q week for HTN CLONIDINE HCL 10769096977 Active Robbie Busby MD Active NITROSTAT 0.4 MG SUBL PRN NITROGLYCERIN 07714081763 Active Robbie Busby MD Active DOXAZOSIN MESYLATE 4 MG TABS Take one by mouth daily DOXAZOSIN MESYLATE 02948624390 Active Robbie Busby MD Active TOPROL XL 200 MG [id number] Take one by mouth daily METOPROLOL SUCCINATE 42626719561 Active Robbie Busby MD Active VENLAFAXINE HCL ER 150 MG [id number] Take one by mouth daily VENLAFAXINE HCL 81889053337 Active Robbie Busby MD Active LIPITOR 40 MG TABS Take one by mouth daily ATORVASTATIN CALCIUM 05868577355 Active Robbie Busby MD Active ISOSORBIDE DINITRATE 30 MG TABS Take one by mouth daily ISOSORBIDE DINITRATE 30 MG TABS 526214 ISOSORBIDE DINITRATE Inactive NORVASC 10 MG TAB 1 tablet by mouth daily NORVASC 10 MG TAB 153104 AMLODIPINE BESYLATE Inactive AZITHROMYCIN 250 MG ORAL TABS 2 tablets PO today---then, 1 tablet PO daily x 4 more days (and 1 optional refill) AZITHROMYCIN 250 MG ORAL TABS 4156746 AZITHROMYCIN Inactive CHERATUSSIN AC 100-10 MG/5ML ORAL SOLN 7.5 mL PO q 4-6 hrs PRN cough CHERATUSSIN AC 100-10 MG/5ML ORAL SOLN 954023 GUAIFENESIN- CODEINE Inactive VIIBRYD 40 MG TABS take 1 tab po qday for depression. VIIBRYD 40 MG TABS VILAZODONE HCL Inactive HYDRALAZINE HCL 25 MG TABS 1 tablet by mouth tid for hypertension HYDRALAZINE HCL 25 MG TABS 430409 HYDRALAZINE HCL Inactive SPIRONOLACTONE 50 MG TABS 1 tablet by mouth twice a day SPIRONOLACTONE 50 MG TABS 026515 SPIRONOLACTONE Inactive FENOFIBRATE 145 MG TABS Take one by mouth daily FENOFIBRATE 145 MG TABS 960415 FENOFIBRATE Inactive PROTONIX 40 MG SOLR 1 po qday for acid reflux PROTONIX 40 MG SOLR 277093 PANTOPRAZOLE SODIUM Inactive ZITHROMAX 250 MG TAB 2 po today, then 1 po q days 2-5 ZITHROMAX 250 MG TAB 3665956 AZITHROMYCIN Inactive TERBINAFINE HCL 250 MG TABS 1 tab po qday for foot infection 2014 TERBINAFINE HCL 250 MG TABS 908518 TERBINAFINE HCL Inactive KEFLEX 500 MG CAP 1 po TID x 10 days KEFLEX 500 MG CAP 002040 CEPHALEXIN Inactive Vital Signs Date Name Value [...] Acid - Chemistry sodium, serum 139 mmol/L 814-998 4634/04/22 carbon dioxide, venous blood 29.4 mmol/L 21.0-32.0 [...] PANEL - Chemistry cholesterol, serum 211 mg/dL 866-600 3634/08/31 triglyceride, serum, fasting 429 mg/dL 30-200 HDL [...] to Follow Negative Lab Report: VITAMIN D, 25-HYDROXY/53184 - Chemistry vitamin D 25-hydroxy, serum 23 ng/mL 30-100 Encounters Code Encounter Date Provider Facility CPT-22988 Level 3 Est. Patient 12:38:24 CDT Desmond Diaz DO [facility] CPT-47135 Level 4 Est. 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 Patient 14:50:10 CDT Robbie Busby MD [facility] CPT-35819 Level 4 Est. Patient 23:30:43 CDT Robbie Busby MD [facility] CPT-53726 Level 4 Est. Patient 10:30:43 CDT Robbie Busby MD [facility] CPT-49652 Level 3 Est. Patient 17:08:12 CDT Alex ALVAREZ [facility] CPT-00878 Level 4 Est. Patient 17:51:38 CDT Robbie Busby MD [facility] CPT-89719 Level 4 Est. Patient 14:00:21 CDT Robbie Busby MD [facility] CPT-87091 Level 4 Est. Patient 12:46:48 CDT Robbie Busby MD [facility] CPT-43697 Level 4 Est. Patient 13:34:33 CDT Robbie Busby MD [facility] CPT-21099 Level 4 Est. Patient 16:58:28 CDT Robbie Busby MD [facility] CPT-34709 Level 3 Est. Patient 19:36:53 CDT Alex ALVAREZ [facility] CPT-67503 Level 3 Est. Patient 12:58:15 CDT Robbie Busby MD [facility] Procedures Code Procedure Name Date Entry Date Standard Description CPT-14486 Venipuncture Draw Fee 13:07:17 CDT CPT-G0008 Administration of Influenza Virus Vaccine 16:09:59 CDT CPT-95194 Fluzone Quadrivalent Intramuscular Suspension 0.5 ML 16: 09:59 CDT CPT-65747 Spec Collection and Handling Fee 15:05:50 CDT
--- OUTSIDE RECORDS SUMMARY | 2018-04-18 15:34 | XMS REPORT | Clinical Summary ---
Author Author Admin, [facility] Organization [facility] Address Unknown Phone Unavailable Allergies, [...] Busby MD Lumbago Degenerative arthritis 715.90 Active Rbobie Busby MD Osteoarthrosis, unspecified whether generalized or localized, involving unspecified site GERD 530.81 Active Robbie Busby MD Esophageal reflux Bronchitis, acute 466.0 Active Alex ALVAREZ Acute bronchitis Seasonal allergies 477.9 Active Robbie Busby MD Allergic rhinitis, cause unspecified Onychomycosis, toenails 110.1 Active Robbie Bsuby MD Dermatophytosis of nail Dizziness 780.4 Active [...] Hypertension, secondary, 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 Rober Rodríguez [employer] Other malignant secondary hypertension Tachycardia 785.0 [...] muscle spasm/pain for 10 days CYCLOBENZAPRINE HCL 05520275285 Active Erin Garsia APRN Active PREDNISONE 20 MG TAB take 3 tabs daily for 3 days, 2 tabs daily for 3 days, 1 tab daily for 3 days, 1/2 tab daily for 4 days PREDNISONE 54447028827 No Longer Active Erin Garsia APRN Active CLONIDINE HCL 0.2 MG ORAL TABS 1 TAB BY MOUTH EVERY 8 HOURS 12/29 CLONIDINE HCL 71385378854 No Longer Active Erin Garsia APRN Active MECLIZINE HCL 25 MG TAB one 4 times a day as needed for dizziness MECLIZINE HCL 70375278619 No Longer Active Erin Garsia APRN Active SPIRONOLACTONE 25 MG TAB 4 tablets by mouth daily SPIRONOLACTONE 11390325937 No Longer Active Erin Garsia APRN Active LEVAQUIN 500 MG TAB 1 tablet by mouth daily for 7 days LEVOFLOXACIN 24957859471 No Longer Active Erin Garsia APRN Active BACTRIM DS 800-160 MG TAB 1 tab by mouth twice daily TRIMETHOPRIM-SULFAMETHOXAZOLE 23818597878 No Longer Active Robbie Busby MD Active HYDRALAZINE HCL 50 MG ORAL TABS TWO BY MOUTH THREE TIMES DAILY HYDRALAZINE HCL 20379899831 No Longer Active Jillina Frazell 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 HYDROCODONE-ACETAMINOPHEN 5-325 MG TABS 1 tab by mouth BID prn back pain 2013 HYDROCODONE-ACETAMINOPHEN 25760601674 No Longer Active Jillina Frazell 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 HYDROCHLOROTHIAZIDE TABS Take one by mouth daily HYDROCHLOROTHIAZIDE TABS 35830800612 No Longer Active Jillina Frazell 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 LAMISIL 125 MG ORAL PACK 1 TAB PO DAILY TERBINAFINE HCL 26835964187 No Longer Active Jillina Frazell 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 TRILEPTAL 150 MG ORAL TABS 1 TAB PO Q HS OXCARBAZEPINE 47620344128 No Longer Active Jillina Frazell 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 BETADINE 10 % EXT SOLN wash with solution to treat follicultis POVIDONE-IODINE 59455590915 No Longer Active Andrellina Frakierstenl 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 NYSTATIN 720189 UNIT/ML M/T SUSP 5mL po QID x 10 days NYSTATIN 04681973885 No Longer Active Erin Garsia APRN Active PREDNISONE 20 MG TAB 1 tablet twice daily for 2 days, then 1 tablet once daily for 2 days PREDNISONE 86154861045 No Longer Active Robbie Busby MD Active CEFDINIR 300 MG ORAL CAPS Take 1 cap po bid x 10 days CEFDINIR 14769677117 No Longer Active Robbie Busby MD Active AMLODIPINE BESYLATE 10 MG TABS 1 tablet by mouth daily AMLODIPINE BESYLATE 45854093420 Active Robbie Busby MD Active CARVEDILOL 25 MG TABS 1 & 1/2 TAB po BID CARVEDILOL 86706645825 Active Erin Garsia APRN Active VITAMIN D3 58530 UNIT CAPS 2 CAPS PO WEEKLY CHOLECALCIFEROL 82953909051 Active Erin Garsia APRN Active NEXIUM 40 MG CPDR 1 cap by mouth daily ESOMEPRAZOLE MAGNESIUM 12693309340 Active Robbie Busby MD Active PROTONIX 40 MG SOLR 1 po qday for acid reflux PANTOPRAZOLE SODIUM 73694280241 No Longer Active Gali Negro Active KEFLEX 500 MG CAP 1 po TID x 10 days CEPHALEXIN 01556220407 No Longer Active Robbie Busby MD Active FIORICET 50-300-40 MG ORAL CAPS take 1 tab po qday prn migraines. [id number] 16519641281 Active Robbie Busby MD Active TOPIRAMATE 50 MG ORAL TABS take 1 tab po BID for migraines. TOPIRAMATE 82521249244 Active Robbie Busby MD Active TEMAZEPAM 15 MG ORAL CAPS 1 TAB PO Q HS TEMAZEPAM 42475055290 Active Robbie Busby MD Active ALPRAZOLAM 2 MG ORAL TABS 1 TAB PO BID ALPRAZOLAM 47657971381 Active Robbie Busby MD Active FENOFIBRATE 145 MG TABS Take one by mouth daily FENOFIBRATE 66292935486 No Longer Active Robbie Busby MD Active SPIRONOLACTONE 50 MG TABS 1 tablet by mouth twice a day SPIRONOLACTONE 55878314861 No Longer Active Robbie Busby MD Active HYDRALAZINE HCL 25 MG TABS 1 tablet by mouth tid for hypertension HYDRALAZINE HCL 70470713652 No Longer Active Robbie Busby MD Active VIIBRYD 40 MG TABS take 1 tab po qday for depression. VILAZODONE HCL 55441083805 No Longer Active Robbie Busby MD Active TERBINAFINE HCL 250 MG TABS 1 tab po qday for foot infection 2014 TERBINAFINE HCL 50722164909 No Longer Active Robbie Busby MD Active GABAPENTIN 300 MG CAPS 1 po q hs for nerve pain GABAPENTIN 28213714532 Active Robbie Busby MD Active FLONASE 50 MCG/ACT SUSP 1 spray each nostril twice daily for allergies and runny nose FLUTICASONE PROPIONATE 33358668775 Active Robbie Busby MD Active CHERATUSSIN AC 100-10 MG/5ML ORAL SOLN 7.5 mL PO q 4-6 hrs PRN cough GUAIFENESIN-CODEINE 58272214122 No Longer Active Robbie Busby MD Active AZITHROMYCIN 250 MG ORAL TABS 2 tablets PO today---then, 1 tablet PO daily x 4 more days (and 1 optional refill) AZITHROMYCIN 37509046322 No Longer Active Robbie Busby MD Active NORVASC 10 MG TAB 1 tablet by mouth daily AMLODIPINE BESYLATE 57654988344 No Longer Active Alex ALVAREZ Active IMDUR 60 MG TAB CR take 1 tab po qday for blood pressure ISOSORBIDE MONONITRATE Active Robbie Busby MD Active ISOSORBIDE DINITRATE 30 MG TABS Take one by mouth daily ISOSORBIDE DINITRATE 29383563840 No Longer Active Robbie Busby MD Active VIIBRYD 40 MG TABS 1 TA B PO DAILY VILAZODONE HCL 37974148962 Active Robbie Busby MD Active LORATADINE 10 MG TABS 1 tablet by mouth daily for congestion and allergies. LORATADINE 52550640913 Active Robbie Busby MD Active ZITHROMAX 250 MG TAB 2 po today, then 1 po q days 2-5 AZITHROMYCIN 38273381602 No Longer Active Robbie Busby MD Active PBNQYCMO-HNM-2 0.3 MG/24HR PTWK apply 2 patches q week for HTN CLONIDINE HCL 85136607402 Active Robbie Busby MD Active NITROSTAT 0.4 MG SUBL PRN NITROGLYCERIN 96526789646 Active Robbie Busby MD Active DOXAZOSIN MESYLATE 4 MG TABS Take one by mouth daily DOXAZOSIN MESYLATE 77319524116 Active Erin Garsia 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 TOPROL XL 200 MG [id number] Take one by mouth daily METOPROLOL SUCCINATE 38336337657 Active Robbie Busby MD Active VENLAFAXINE HCL ER 150 MG [id number] Take one by mouth daily VENLAFAXINE HCL 33245617643 Active Robbie Busby MD Active LIPITOR 40 MG TABS Take one by mouth daily ATORVASTATIN CALCIUM 21840895652 Active Robbie Busby MD Active ISOSORBIDE DINITRATE 30 MG TABS Take one by mouth daily ISOSORBIDE DINITRATE 30 MG TABS 627938 ISOSORBIDE DINITRATE Inactive NORVASC 10 MG TAB 1 tablet by mouth daily NORVASC 10 MG TAB 088106 AMLODIPINE BESYLATE Inactive AZITHROMYCIN 250 MG ORAL TABS 2 tablets PO today---then, 1 tablet PO daily x 4 more days (and 1 optional refill) AZITHROMYCIN 250 MG ORAL TABS 2165370 AZITHROMYCIN Inactive CHERATUSSIN AC 100-10 MG/5ML ORAL SOLN 7.5 mL PO q 4-6 hrs PRN cough CHERATUSSIN AC 100-10 MG/5ML ORAL SOLN 888763 GUAIFENESIN- CODEINE Inactive VIIBRYD 40 MG TABS take 1 tab po qday for depression. VIIBRYD 40 MG TABS VILAZODONE HCL Inactive HYDRALAZINE HCL 25 MG TABS 1 tablet by mouth tid for hypertension HYDRALAZINE HCL 25 MG TABS 098297 HYDRALAZINE HCL Inactive SPIRONOLACTONE 50 MG TABS 1 tablet by mouth twice a day SPIRONOLACTONE 50 MG TABS 522337 SPIRONOLACTONE Inactive FENOFIBRATE 145 MG TABS Take one by mouth daily FENOFIBRATE 145 MG TABS 653925 FENOFIBRATE Inactive PROTONIX 40 MG SOLR 1 po qday for acid reflux PROTONIX 40 MG SOLR 883632 PANTOPRAZOLE SODIUM Inactive CEFDINIR 300 MG ORAL CAPS Take 1 cap po bid x 10 days CEFDINIR 300 MG ORAL CAPS 229498 CEFDINIR Inactive PREDNISONE 20 MG TAB 1 tablet twice daily for 2 days, then 1 tablet once daily for 2 days PREDNISONE 20 MG TAB 398648 PREDNISONE Inactive NYSTATIN 612374 UNIT/ML M/T SUSP 5mL po QID x 10 days NYSTATIN 339660 UNIT/ML M/T SUSP 881780 NYSTATIN Inactive BETADINE 10 % EXT SOLN wash with solution to treat follicultis BETADINE 10 % EXT SOLN 6689547 POVIDONE-IODINE Inactive TRILEPTAL 150 MG ORAL TABS 1 TAB PO Q HS TRILEPTAL 150 MG ORAL TABS 033611 OXCARBAZEPINE Inactive LAMISIL 125 MG ORAL PACK 1 TAB PO DAILY LAMISIL 125 MG ORAL PACK TERBINAFINE HCL Inactive HYDROCHLOROTHIAZIDE TABS Take one by mouth daily HYDROCHLOROTHIAZIDE TABS HYDROCHLOROTHIAZIDE TABS Inactive HYDROCODONE-ACETAMINOPHEN 5-325 MG TABS 1 tab by mouth BID prn back pain 2013 HYDROCODONE-ACETAMINOPHEN 5-325 MG TABS 002411 HYDROCODONE -ACETAMINOPHEN Inactive HYDRALAZINE HCL 50 MG ORAL TABS TWO BY MOUTH THREE TIMES DAILY HYDRALAZINE HCL 50 MG ORAL TABS 564900 HYDRALAZINE HCL Inactive LEVAQUIN 500 MG TAB 1 tablet by mouth daily for 7 days LEVAQUIN 500 MG TAB 945406 LEVOFLOXACIN Inactive SPIRONOLACTONE 25 MG TAB 4 tablets by mouth daily SPIRONOLACTONE 25 MG TAB 790340 SPIRONOLACTONE Inactive MECLIZINE HCL 25 MG TAB one 4 times a day as needed for dizziness MECLIZINE HCL 25 MG TAB 902928 MECLIZINE HCL Inactive CLONIDINE HCL 0.2 MG ORAL TABS 1 TAB BY MOUTH EVERY 8 HOURS 12/29 CLONIDINE HCL 0.2 MG ORAL TABS 059706 CLONIDINE HCL Inactive ZITHROMAX 250 MG TAB 2 po today, then 1 po q days 2-5 ZITHROMAX 250 MG TAB 4885614 AZITHROMYCIN Inactive TERBINAFINE HCL 250 MG TABS 1 tab po qday for foot infection 2014 TERBINAFINE HCL 250 MG TABS 852383 TERBINAFINE HCL Inactive KEFLEX 500 MG CAP 1 po TID x 10 days KEFLEX 500 MG CAP 583268 CEPHALEXIN Inactive BACTRIM DS 800-160 MG TAB 1 tab by mouth twice daily BACTRIM DS 800-160 MG TAB 955719 TRIMETHOPRIM-SULFAMETHOXAZOLE Inactive PREDNISONE 20 MG TAB take 3 tabs daily for 3 days, 2 tabs daily for 3 days, 1 tab daily for 3 days, 1/2 tab daily for 4 days PREDNISONE 20 MG TAB 563374 PREDNISONE Inactive Advance Directives Directive Description Start [...] % 11.0-15.0 platelet count 185 THOUSAND/UL 10*3/mm3 601-794 8375/04/14 mean platelet volume 10.9 fL 7.5-12.5 Lab Report: HEPATITIS B SAB/Immune Status, RUBELLA IGG AB(Immune Status) - Serology rubella antibody, serum, IgG 2.06 Lab Report: LIPID PANEL, TSH/899, T4, FREE/866 - Chemistry cholesterol, serum 220 mg/dL 413-334 9526/04/14 HDL cholesterol, serum 30 mg/dL > OR=40 triglyceride, serum, fasting 466 mg/dL <150 LDL cholesterol, serum SEE NOTE mg/dL (calc) mg/dL <130 cholesterol/HDL ratio, serum 7.3 (calc) < OR=5.0 Lab Report: MICROALB/CREAT W/RATIO - Chemistry albumin/creatinine ratio, urine < 30 mg/g mg/g{creat} 0-29 Lab Report: MICROALB/CREAT W/RATIO - Lab microalbumin, urine 80 0-19 Lab Report: VITAMIN D, 25-HYDROXY/37859 - Chemistry vitamin D 25-hydroxy, serum 23 ng/mL 30-100 Encounters Code Encounter Date Provider Facility CPT-65627 Level 4 Est. 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 Patient 09:16:37 CDT Robbie Busby MD [facility] CPT-59962 Level 3 Est. Patient 19:38:43 CDT Robbie Busby MD [facility] CPT-58212 Level 3 Est. Patient 11:53:38 CDT Robbie Busby MD [facility] CPT-83327 Level 4 Est. Patient 12:52:22 CDT Rober Rodríguez [facility] CPT-48463 Level 4 Est. Patient 22:55:17 CDT Robbie Busby MD [facility] CPT-33303 Level 3 Est. Patient 12:38:24 CDT Desmond Diaz DO [facility] CPT-62305 Level 4 Est. 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 Patient 14:50:10 CDT Robbie Busby MD [facility] CPT-26154 Level 4 Est. Patient 23:30:43 CDT Robbie Busby MD [facility] CPT-34238 Level 4 Est. Patient 10:30:43 CDT Robbie Busby MD [facility] CPT-16049 Level 3 Est. Patient 17:08:12 CDT Alex ALVAREZ [facility] CPT-35474 Level 4 Est. Patient 17:51:38 CDT Robbie Busby MD [facility] CPT-64235 Level 4 Est. Patient 14:00:21 CDT Robbie Busby MD [facility] CPT-13552 Level 4 Est. Patient 12:46:48 CDT Robbie Busby MD [facility] CPT-22788 Level 4 Est. Patient 13:34:33 CDT Robbie Busby MD [facility] CPT-00684 Level 4 Est. Patient 16:58:28 CDT Robbie Busby MD [facility] CPT-76688 Level 3 Est. Patient 19:36:53 CDT Alex Shaw [facility] CPT-97069 Level 3 Est. 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 ATTENDANT CPT-J1040 Depo Medrol 80 mg (Methyl Prednisolone Acetate) 09:43: 34 GOLF RANGE ATTENDANT CPT-J1100 Decadron 8mg (Dexamethasone) 09:43:34 GOLF RANGE ATTENDANT CPT-J0696 Rocephin 1gm Inj Solr 09:43:34 GOLF RANGE ATTENDANT CPT-19542 Wound Culture - LAB USE ONLY 14:00:21 CDT CPT-I/D I/D Abscess 09:16:37 CDT CPT-31830 Venipuncture Draw Fee 15:20:23 CDT CPT-62611 Microalbumin - LAB USE ONLY 16:02:19 CDT CPT-28560 CBC - LAB USE ONLY 16:02:19 CDT CPT-46841 Venipuncture Draw Fee 16:02:19 CDT CPT-G0438 Initial Annual Wellness Exam 08:10:28 CDT CPT-50101 Venipuncture Draw Fee 13:07:17 CDT CPT-G0008 Administration of Influenza Virus Vaccine 16:09:59 CDT CPT-76929 Fluzone Quadrivalent Intramuscular Suspension 0.5 ML 16: 09:59 CDT CPT-71418 Spec Collection and Handling Fee 15:05:50 CDT
--- OUTSIDE RECORDS SUMMARY | 2018-04-18 15:36 | XMS REPORT ---
Author Author NADIR NEOL [facility] Address [address] [place] [address] Care Team Providers Care Election Supervisor Name Role Phone NADIR NOEL Unavailable PROBLEMS Type Condition ICD9-CM Code [id number] Code Onset Dates Condition Status SNOMED Code Problem Gout M10.9 Active 29012085 Problem Accelerated hypertension I10 Active 50371080 Problem Back pain M54.9 Active 985478203 Problem Anxiety F41.9 Active 53420721 ALLERGIES Unknown Allergies SOCIAL HISTORY No smoking Hx information available PLAN OF CARE VITAL SIGNS MEDICATIONS Medication Instructions Dosage Frequency Start Date End Date Duration Status OxyContin 10 MG Orally every 12 hrs 1 tablet 12h Sep, Active RESULTS No Results PROCEDURES No Known procedures IMMUNIZATIONS No Known Immunizations
--- OUTSIDE RECORDS SUMMARY | 2018-04-18 15:36 | XMS REPORT | Clinical Summary ---
Author Author Admin, AKUA Organization [facility] Address Unknown Phone Unavailable Allergies, Adverse [...] Name NDC Status Provider Patient Instruction NYSTATIN 326430 UNIT/ML M/T SUSP 5mL po QID x 10 days NYSTATIN 74018063958 No Longer Active Erin Garsia APRN Active PREDNISONE 20 MG TAB 1 tablet twice daily for 2 days, then 1 tablet once daily for 2 days PREDNISONE 67121933865 No Longer Active Robbie Busby MD Active CEFDINIR 300 MG ORAL CAPS Take 1 cap po bid x 10 days CEFDINIR 99914807713 No Longer Active Robbie Busby MD Active AMLODIPINE BESYLATE 10 MG TABS 1 tablet by mouth daily AMLODIPINE BESYLATE 05760895626 Active Robbie Busby MD Active CARVEDILOL 25 MG TABS 1 & 1/2 TAB po BID CARVEDILOL 46864832481 Active Robbie Busby MD Active VITAMIN D3 36162 UNIT CAPS 2 CAPS PO WEEKLY CHOLECALCIFEROL 56217119392 Active 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 [id number] 33404844171 Active Robbie Busby MD Active TOPIRAMATE 50 MG ORAL TABS take 1 tab po BID for migraines. TOPIRAMATE 66907583279 Active Robibe Busby MD Active HYDRALAZINE HCL 50 MG ORAL TABS TWO BY MOUTH THREE TIMES DAILY HYDRALAZINE HCL 84489304856 Active Robbie Busby MD Active MECLIZINE HCL 25 MG TAB one 4 times a day as needed for dizziness MECLIZINE HCL 85669606628 Active Robbie Busby MD Active TRILEPTAL 150 MG ORAL TABS 1 TAB PO Q HS OXCARBAZEPINE 58952763196 Active Robbie Busby MD Active TEMAZEPAM 15 MG ORAL CAPS 1 TAB PO Q HS TEMAZEPAM 16904741752 Active Robbie Busby MD Active ALPRAZOLAM 2 MG ORAL TABS 1 TAB PO BID ALPRAZOLAM 76290063152 Active Robbie Busby MD Active FENOFIBRATE 145 MG TABS Take one by mouth daily FENOFIBRATE 26745010202 No Longer Active Robbie Busby MD Active LAMISIL 125 MG ORAL PACK 1 TAB PO DAILY TERBINAFINE HCL 14377955537 Active Robbie Busby MD Active SPIRONOLACTONE 50 MG TABS 1 tablet by mouth twice a day SPIRONOLACTONE 26472092332 No Longer Active Robbie Busby MD Active HYDRALAZINE HCL 25 MG TABS 1 tablet by mouth tid for hypertension HYDRALAZINE HCL 95728823528 No Longer Active Robbie Busby MD Active VIIBRYD 40 MG TABS take 1 tab po qday for depression. VILAZODONE HCL 12509311243 No Longer Active Robbie Busby MD Active TERBINAFINE HCL 250 MG TABS 1 tab po qday for foot infection 2014 TERBINAFINE HCL 20272600471 No Longer Active Robbie Busby MD Active GABAPENTIN 300 MG CAPS 1 po q hs for nerve pain GABAPENTIN 87206863147 Active Robbie Busby MD Active FLONASE 50 MCG/ACT SUSP 1 spray each nostril twice daily for allergies and runny nose FLUTICASONE PROPIONATE 39425515123 Active Robbie Busby MD Active CHERATUSSIN AC 100-10 MG/5ML ORAL SOLN 7.5 mL PO q 4-6 hrs PRN cough GUAIFENESIN-CODEINE 83592890362 No Longer Active Robbie Busby MD Active AZITHROMYCIN 250 MG ORAL TABS 2 tablets PO today---then, 1 tablet PO daily x 4 more days (and 1 optional refill) AZITHROMYCIN 11552025744 No Longer Active Robbie Busby MD Active CLONIDINE HCL 0.2 MG ORAL TABS 1 TAB BY MOUTH EVERY 8 HOURS CLONIDINE HCL 50389419667 Active Robbie Busby MD Active HYDROCHLOROTHIAZIDE TABS Take one by mouth daily HYDROCHLOROTHIAZIDE TABS 37419567814 Active Alex ALVAREZ Active NORVASC 10 MG TAB 1 tablet by mouth daily AMLODIPINE BESYLATE 11572689910 No Longer Active Alex ALVAREZ Active IMDUR 60 MG TAB CR take 1 tab po qday for blood pressure ISOSORBIDE MONONITRATE Active Robbie Busby MD Active ISOSORBIDE DINITRATE 30 MG TABS Take one by mouth daily ISOSORBIDE DINITRATE 22686827047 No Longer Active Robbie Busby MD Active VIIBRYD 40 MG TABS 1 TA B PO DAILY VILAZODONE HCL 72114484001 Active Robbie Busby MD Active LORATADINE 10 MG TABS 1 tablet by mouth daily for congestion and allergies. LORATADINE 92529771685 Active Robbie Busby MD Active ZITHROMAX 250 MG TAB 2 po today, then 1 po q days 2-5 AZITHROMYCIN 81529312816 No Longer Active Robbie Busby MD Active HYDROCODONE-ACETAMINOPHEN 5-325 MG TABS 1 tab by mouth BID prn back pain 2013 HYDROCODONE-ACETAMINOPHEN 96852494667 Active Robbie Busby MD Active [id number] 0.3 MG/24HR PTWK apply 2 patches q week for HTN CLONIDINE HCL 31307120485 Active Robbie Busby MD Active NITROSTAT 0.4 MG SUBL PRN NITROGLYCERIN 15827123473 Active Robbie Busby MD Active DOXAZOSIN MESYLATE 4 MG TABS Take one by mouth daily DOXAZOSIN MESYLATE 16565148741 Active Robbie Busby MD Active TOPROL XL 200 MG [id number] Take one by mouth daily METOPROLOL SUCCINATE 10913857499 Active Robbie Busby MD Active VENLAFAXINE HCL ER 150 MG [id number]-MDE Take one by mouth daily VENLAFAXINE HCL 82514137298 Active Robbie Busby MD Active LIPITOR 40 MG TABS Take one by mouth daily ATORVASTATIN CALCIUM 29916847639 Active Robbie Busby MD Active ISOSORBIDE DINITRATE 30 MG TABS Take one by mouth daily ISOSORBIDE DINITRATE 30 MG TABS 284006 ISOSORBIDE DINITRATE Inactive NORVASC 10 MG TAB 1 tablet by mouth daily NORVASC 10 MG TAB 337422 AMLODIPINE BESYLATE Inactive AZITHROMYCIN 250 MG ORAL TABS 2 tablets PO today---then, 1 tablet PO daily x 4 more days (and 1 optional refill) AZITHROMYCIN 250 MG ORAL TABS 1934226 AZITHROMYCIN Inactive CHERATUSSIN AC 100-10 MG/5ML ORAL SOLN 7.5 mL PO q 4-6 hrs PRN cough CHERATUSSIN AC 100-10 MG/5ML ORAL SOLN 780054 GUAIFENESIN- CODEINE Inactive VIIBRYD 40 MG TABS take 1 tab po qday for depression. VIIBRYD 40 MG TABS VILAZODONE HCL Inactive HYDRALAZINE HCL 25 MG TABS 1 tablet by mouth tid for hypertension HYDRALAZINE HCL 25 MG TABS 768109 HYDRALAZINE HCL Inactive SPIRONOLACTONE 50 MG TABS 1 tablet by mouth twice a day SPIRONOLACTONE 50 MG TABS 832510 SPIRONOLACTONE Inactive FENOFIBRATE 145 MG TABS Take one by mouth daily FENOFIBRATE 145 MG TABS 589054 FENOFIBRATE Inactive PROTONIX 40 MG SOLR 1 po qday for acid reflux PROTONIX 40 MG SOLR 695208 PANTOPRAZOLE SODIUM Inactive CEFDINIR 300 MG ORAL CAPS Take 1 cap po bid x 10 days CEFDINIR 300 MG ORAL CAPS 931208 CEFDINIR Inactive PREDNISONE 20 MG TAB 1 tablet twice daily for 2 days, then 1 tablet once daily for 2 days PREDNISONE 20 MG TAB 303018 PREDNISONE Inactive NYSTATIN 010677 UNIT/ML M/T SUSP 5mL po QID x 10 days NYSTATIN 538789 UNIT/ML M/T SUSP 672927 NYSTATIN Inactive ZITHROMAX 250 MG TAB 2 po today, then 1 po q days 2-5 ZITHROMAX 250 MG TAB 7594029 AZITHROMYCIN Inactive TERBINAFINE HCL 250 MG TABS 1 tab po qday for foot infection 2014 TERBINAFINE HCL 250 MG TABS 887383 TERBINAFINE HCL Inactive KEFLEX 500 MG CAP 1 po TID x 10 days KEFLEX 500 MG CAP 619618 CEPHALEXIN Inactive Advance Directives Directive Description Start [...] Acid - Chemistry sodium, serum 139 mmol/L 626-698 6854/04/22 carbon dioxide, venous blood 29.4 mmol/L 21.0-32.0 [...] to Follow Negative Lab Report: VITAMIN D, 25-HYDROXY/90765 - Chemistry vitamin D 25-hydroxy, serum 23 ng/mL 30-100 Encounters Code Encounter Date Provider Facility CPT-94322 Level 4 Est. Patient 22:55:17 CDT Robbie Busby MD [facility] CPT-74141 Level 3 Est. Patient 12:38:24 CDT Desmond Diaz DO [facility] CPT-17270 Level 4 Est. Patient 11:25:03 CHIEF YEOMAN Robbie Busby MD [facility] CPT-58559 Level 4 Est. Patient 14:50:10 CDT Robbie Busby MD [facility] CPT-63630 Level 4 Est. Patient 23:30:43 CDT Robbie Busby MD [facility] CPT-70095 Level 4 Est. Patient 10:30:43 CDT Robbie Busby MD [facility] CPT-45745 Level 3 Est. Patient 17:08:12 CDT Alex ALVAREZ [facility] CPT-01669 Level 4 Est. Patient 17:51:38 CDT Robbie Busby MD [facility] CPT-53354 Level 4 Est. Patient 14:00:21 CDT Robbie Busby MD [facility] CPT-73187 Level 4 Est. Patient 12:46:48 CDT Robbie Busby MD [facility] CPT-74545 Level 4 Est. Patient 13:34:33 CDT Robbie Busby MD [facility] CPT-47905 Level 4 Est. Patient 16:58:28 CDT Robbie Busby MD [facility] CPT-06465 Level 3 Est. Patient 19:36:53 CDT Alex Shaw [facility] CPT-88747 Level 3 Est. Patient 12:58:15 CDT Robbie Busby MD [facility] Procedures Code Procedure Name Date Entry Date Standard Description CPT-79060 Venipuncture Draw Fee 15:20:23 CDT CPT-33783 Microalbumin - LAB USE ONLY 16:02:19 CDT CPT-25023 CBC - LAB USE ONLY 16:02:19 CDT CPT-21066 Venipuncture Draw Fee 16:02:19 CDT CPT-G0438 Initial Annual Wellness Exam 08:10:28 CDT CPT-68791 Venipuncture Draw Fee 13:07:17 CDT CPT-G0008 Administration of Influenza Virus Vaccine 16:09:59 CDT CPT-93479 Fluzone Quadrivalent Intramuscular Suspension 0.5 ML 16: 09:59 CDT CPT-29166 Spec Collection and Handling Fee 15:05:50 CDT
--- OUTSIDE RECORDS SUMMARY | 2018-04-18 15:36 | XMS REPORT | Clinical Summary ---
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 Desmond Diaz DO Other malignant secondary hypertension Tachycardia 785.0 Active Rober Rodríguez [employer] Tachycardia, unspecified Insect bite, infected 919.5 Resolved Desmond Diaz DO Insect bite, nonvenomous, of other, multiple, and unspecified sites, infected Abscess, skin 682.9 Resolved Desmond Diaz DO Cellulitis and abscess of unspecified sites URI 465.9 Resolved Desmond Diaz DO Acute upper respiratory infections of unspecified site Hypertension 401.9 Active Rober Rodríguez [employer] Unspecified essential hypertension Sinusitis - acute 461.9 [...] Hypogonadism, low testosterone 257.2 Active Erin Mai [employer] Other testicular hypofunction Low back pain, chronic [...] 36.0-36.9, adult Sinusitis ICD-461.9 Inactive Emily Atwood HOME HEALTH PHYSICAL THERAPIST 2017 Low back pain, acute ICD-724.2 Inactive Emily Atwood HOME HEALTH PHYSICAL THERAPIST Low back pain, chronic ICD-724.2 Inactive Emily Atwood HOME HEALTH PHYSICAL THERAPIST Bronchitis, acute ICD-466.0 Inactive Emily Atwood HOME HEALTH PHYSICAL THERAPIST Onychomycosis, toenails ICD-110.1 Inactive Emily Atwood HOME HEALTH PHYSICAL THERAPIST Dizziness ICD-780.4 Inactive Emily Atwood HOME HEALTH PHYSICAL THERAPIST 2017 Folliculitis ICD-704.8 Inactive Emily Atwood HOME HEALTH PHYSICAL THERAPIST Pharyngitis-Acute ICD-462 Inactive Emily Atwood HOME HEALTH PHYSICAL THERAPIST Fatigue ICD-780.79 Inactive Emily Atwood HOME HEALTH PHYSICAL THERAPIST 09/20 Hypertension, secondary, malignant ICD-405.09 Inactive Emily Atwood HOME HEALTH PHYSICAL THERAPIST Insect bite, infected ICD-919.5 Inactive Emily Atwood HOME HEALTH PHYSICAL THERAPIST Abscess, skin ICD-682.9 Inactive Emily Atwood HOME HEALTH PHYSICAL THERAPIST URI ICD-465.9 Inactive Emily Atwood HOME HEALTH PHYSICAL THERAPIST Sinusitis - acute ICD-461.9 Inactive Emily Atwood HOME HEALTH PHYSICAL THERAPIST Acute confusion ICD-293.0 Inactive Emily Atowod HOME HEALTH PHYSICAL THERAPIST Headache ICD-784.0 Inactive Emily Atwood HOME HEALTH PHYSICAL THERAPIST 09/20 Back pain ICD-724.5 Inactive Emily Atwood HOME HEALTH PHYSICAL THERAPIST 2017 Rib pain, right sided ICD-786.50 Inactive Emily Atwood HOME HEALTH PHYSICAL THERAPIST Myalgias ICD-729.1 Inactive Emily Atwood HOME HEALTH PHYSICAL THERAPIST 09/20 URI ICD-465.9 Inactive Emily Atwood HOME HEALTH PHYSICAL THERAPIST Bronchitis-Acute ICD-466.0 Inactive Desmond Diaz DO Medication List Medication Instructions Start Date Stop Date Generic Name NDC Status Provider Patient Instruction MONTELUKAST SODIUM 10 MG ORAL TABLET 1 tab po daily for allergies MONTELUKAST SODIUM 38766359920 Active JONATHAN Moncada Active IMDUR 60 MG ORAL TABLET EXTENDED RELEASE 24 HOUR 1 po q day ISOSORBIDE MONONITRATE 34730550980 Active Emma Hernandez Active METOPROLOL SUCCINATE ER 200 MG ORAL TABLET EXTENDED RELEASE 24 HOUR take 1 tab po qday for high blood pressure and rapid pulse METOPROLOL SUCCINATE 48737646515 Active Robbie Busby MD Active [id number]-[id number]-0 0.3 MG/24HR TRANSDERMAL PATCH WEEKLY apply 2 patches q week for HTN CLONIDINE HCL 59139855967 No Longer Active Robbie Busby MD Active IMDUR 60 MG ORAL TABLET EXTENDED RELEASE 24 HOUR take 1 tab po qday for blood pressure ISOSORBIDE MONONITRATE 93695436932 No Longer Active Robbie Busby MD Active TEMAZEPAM 15 MG ORAL CAPSULE 1 TAB PO Q HS TEMAZEPAM 08860886021 No Longer Active Robbie Busby MD Active TOPIRAMATE 50 MG ORAL TABLET 1 po BID for migraines TOPIRAMATE 90082383735 No Longer Active Robbie Busby MD Active CYCLOBENZAPRINE HCL 10 MG ORAL TABLET 1 tablet by mouth three times daily as needed for muscle spasm/pain CYCLOBENZAPRINE HCL 18724660674 No Longer Active Robbie Busby MD Active TOPROL XL 200 MG ORAL TABLET EXTENDED RELEASE 24 HOUR Take one by mouth daily METOPROLOL SUCCINATE 75308121422 No Longer Active Robbie Busby MD Active METFORMIN HCL 500 MG ORAL TABLET 1 tablet by mouth daily for diabetes type 2 METFORMIN HCL 36685522295 Active Robbie Busby MD Active SINGULAIR 10 MG ORAL TABLET 1 po qday for allergies. MONTELUKAST SODIUM 81120916219 No Longer Active Robbie Busby MD Active PREDNISONE 20 MG ORAL TABLET two tabs by mouth today, then one tab by mouth days two and three PREDNISONE 85424995186 No Longer Active Robbie Busby MD Active AZITHROMYCIN 250 MG ORAL TABLET 2 po qd x 1 day, then 1 po qd x 4 days 09/20 AZITHROMYCIN 67434983882 No Longer Active Desmond Diaz DO Active TOPIRAMATE 50 MG ORAL TABLET take 1 tab po BID for migraines. TOPIRAMATE 55143651054 No Longer Active Desmond Diaz DO Active CYCLOBENZAPRINE HCL 10 MG ORAL TABLET 1 po TID PRN muscle spasm/pain for 10 days CYCLOBENZAPRINE HCL 51770052938 No Longer Active Desmond Diaz DO Active GUAIFENESIN ER 600 MG ORAL TABLET EXTENDED RELEASE 12 HOUR 1 tab po q am 2016 GUAIFENESIN 45092340130 No Longer Active Robbie Busby MD Active DIVALPROEX SODIUM ER 500 MG ORAL TABLET EXTENDED RELEASE 24 HOUR Once daily DIVALPROEX SODIUM 41619113763 Active Robbie Busby MD Active DEPO-TESTOSTERONE 200 MG/ML INTRAMUSCULAR SOLUTION 1 IM Injections every 2 weeks for low testosterone TESTOSTERONE CYPIONATE 41388454253 Active Zulema Blank LPN Active FLUTICASONE PROPIONATE 50 MCG/ACT NASAL SUSPENSION 2 sprays per nostril bid for 1 week, then 1 spray bid FLUTICASONE PROPIONATE 99426137021 Active Rober Rodríguez APRN Active HYDRALAZINE HCL 25 MG ORAL TABLET Take 1 tab BID. HYDRALAZINE HCL 05742342793 Active Rober Rodríguez [employer] Active VITAMIN D3 29012 UNIT ORAL TABLET 2 po weekly CHOLECALCIFEROL 99319966949 Active Robbie Busby MD Active OXYCODONE HCL ER 10 MG ORAL TABLET ER 12 HOUR ABUSE-DETERRENT 1 tab po 3 times qd. OXYCODONE HCL 11764813901 Active Robbie Busby MD Active NITROSTAT 0.4 MG SUBLINGUAL TABLET SUBLINGUAL PRN NITROGLYCERIN 26484020896 No Longer Active Robbie Busby MD Active LORATADINE 10 MG ORAL TABLET 1 tablet by mouth daily for congestion and allergies. LORATADINE 49612455209 No Longer Active Robbie Busby MD Active FLONASE 50 MCG/ACT NASAL SUSPENSION 1 spray each nostril twice daily for allergies and runny nose FLUTICASONE PROPIONATE 65034197393 No Longer Active Robbie Busby MD Active FIORICET 50-300-40 MG ORAL CAPSULE take 1 tab po qday prn migraines. [id number] 67014043077 No Longer Active Robbie Busby MD Active VITAMIN D3 02067 UNIT ORAL CAPSULE 2 CAPS PO WEEKLY CHOLECALCIFEROL 99816642690 No Longer Active Robbie Busby MD Active CYCLOBENZAPRINE HCL 10 MG ORAL TABLET 1 tablet by mouth three times daily as needed for muscle spasm/pain for 10 days CYCLOBENZAPRINE HCL 78652721092 No Longer Active Robbie Busby MD Active PREDNISONE 20 MG ORAL TABLET take 3 tabs daily for 3 days, 2 tabs daily for 3 days, 1 tab daily for 3 days, 1/2 tab daily for 4 days PREDNISONE 36308650860 No Longer Active Erin Arell [employer] Active CLONIDINE HCL 0.2 MG ORAL TABLET 1 TAB BY MOUTH EVERY 8 HOURS CLONIDINE HCL 60591601358 No Longer Active Erin Arell [employer] Active MECLIZINE HCL 25 MG ORAL TABLET one 4 times a day as needed for dizziness MECLIZINE HCL 95374994405 No Longer Active Erin Arell [employer] Active SPIRONOLACTONE 25 MG ORAL TABLET 4 tablets by mouth daily SPIRONOLACTONE 83793473110 No Longer Active Erin Arell [employer] Active LEVAQUIN 500 MG ORAL TABLET 1 tablet by mouth daily for 7 days LEVOFLOXACIN 73048850680 No Longer Active Erin Arell [employer] Active BACTRIM DS 800-160 MG ORAL TABLET 1 tab by mouth twice daily 2015 TRIMETHOPRIM-SULFAMETHOXAZOLE 82705088331 No Longer Active Robbie Busby MD Active HYDRALAZINE HCL 50 MG ORAL TABLET TWO BY MOUTH THREE TIMES DAILY HYDRALAZINE HCL 77008434075 No Longer Active Jillina Frazell [employer] Active HYDROCODONE-ACETAMINOPHEN 5-325 MG ORAL TABLET 1 tab by mouth BID prn back pain HYDROCODONE-ACETAMINOPHEN 86399047643 No Longer Active Jillina Frazell [employer] Active HYDROCHLOROTHIAZIDE TABLET Take one by mouth daily HYDROCHLOROTHIAZIDE TABS 26509446208 No Longer Active Jillina Frazell [employer] Active LAMISIL 125 MG ORAL PACKET 1 TAB PO DAILY TERBINAFINE HCL 74451640573 No Longer Active Jillina Frazell [employer] Active TRILEPTAL 150 MG ORAL TABLET 1 TAB PO Q HS OXCARBAZEPINE 67848421162 No Longer Active Jillina Frazell [employer] Active BETADINE 10 % EXTERNAL SOLUTION wash with solution to treat follicultis 07/29 POVIDONE-IODINE 83316948051 No Longer Active Rober Rodríguze APRN Active NYSTATIN 161150 UNIT/ML MOUTH/THROAT SUSPENSION 5mL po QID x 10 days NYSTATIN 72364243895 No Longer Active Erin Mai APRN Active PREDNISONE 20 MG ORAL TABLET 1 tablet twice daily for 2 days, then 1 tablet once daily for 2 days PREDNISONE 64995343708 No Longer Active Robbie Busby MD Active CEFDINIR 300 MG ORAL CAPSULE Take 1 cap po bid x 10 days CEFDINIR 80668939584 No Longer Active Robbie Busby MD Active AMLODIPINE BESYLATE 10 MG ORAL TABLET 1 tablet by mouth daily AMLODIPINE BESYLATE 72762860518 Active Robbie Busby MD Active CARVEDILOL 25 MG ORAL TABLET 1 & 1/2 TAB po BID CARVEDILOL 08529502496 Active Robbie Busby MD Active NEXIUM 40 MG ORAL CAPSULE DELAYED RELEASE 1 cap by mouth daily ESOMEPRAZOLE MAGNESIUM 43313035229 Active Robbie Busby MD Active PROTONIX 40 MG INTRAVENOUS SOLUTION RECONSTITUTED 1 po qday for acid reflux PANTOPRAZOLE SODIUM 56272101137 No Longer Active Gali Raida Active KEFLEX 500 MG ORAL CAPSULE 1 po TID x 10 days CEPHALEXIN 36199801831 No Longer Active Robbie Busby MD Active ALPRAZOLAM 2 MG ORAL TABLET 1 TAB PO BID ALPRAZOLAM 67686425150 Active Robbie Busby MD Active FENOFIBRATE 145 MG ORAL TABLET Take one by mouth daily FENOFIBRATE 06378214882 No Longer Active Robbie Busby MD Active SPIRONOLACTONE 50 MG ORAL TABLET 1 tablet by mouth twice a day SPIRONOLACTONE 77895946186 No Longer Active Robbie Busby MD Active HYDRALAZINE HCL 25 MG ORAL TABLET 1 tablet by mouth tid for hypertension 2013 HYDRALAZINE HCL 76090969033 No Longer Active Robbie uBsby MD Active VIIBRYD 40 MG ORAL TABLET take 1 tab po qday for depression. 2014 VILAZODONE HCL 13474115235 No Longer Active Robbie Busby MD Active TERBINAFINE HCL 250 MG ORAL TABLET 1 tab po qday for foot infection TERBINAFINE HCL 43089286368 No Longer Active Robbie Busby MD Active GABAPENTIN 300 MG ORAL CAPSULE 1 po q hs for nerve pain GABAPENTIN 33247171342 Active Robbie Busby MD Active CHERATUSSIN AC 100-10 MG/5ML ORAL SOLUTION 7.5 mL PO q 4-6 hrs PRN cough 2014 GUAIFENESIN-CODEINE 77602922297 No Longer Active Robbie Busby MD Active AZITHROMYCIN 250 MG ORAL TABLET 2 tablets PO today---then, 1 tablet PO daily x 4 more days (and 1 optional refill) AZITHROMYCIN 92900849493 No Longer Active Robbie Busby MD Active NORVASC 10 MG ORAL TABLET 1 tablet by mouth daily AMLODIPINE BESYLATE 82896724856 No Longer Active Alex ALVAREZ Active ISOSORBIDE DINITRATE 30 MG ORAL TABLET Take one by mouth daily ISOSORBIDE DINITRATE 16348253205 No Longer Active Robbie Busby MD Active VIIBRYD 40 MG ORAL TABLET 1 TA B PO DAILY VILAZODONE HCL 74027950301 Active Robbie Busby MD Active ZITHROMAX 250 MG ORAL TABLET 2 po today, then 1 po q days 2-5 AZITHROMYCIN 91772712930 No Longer Active Robbie Busby MD Active DOXAZOSIN MESYLATE 4 MG ORAL TABLET Take one by mouth daily DOXAZOSIN MESYLATE 09773318277 Active Robbie Busby MD Active VENLAFAXINE HCL ER 150 MG ORAL TABLET EXTENDED RELEASE 24 HOUR Take one by mouth daily VENLAFAXINE HCL 16911038906 Active Robbie Busby MD Active LIPITOR 40 MG ORAL TABLET Take one by mouth daily ATORVASTATIN CALCIUM 26470471552 Active Robbie Busby MD Active ISOSORBIDE DINITRATE 30 MG ORAL TABLET Take one by mouth daily ISOSORBIDE DINITRATE 30 MG ORAL TABLET 128295 ISOSORBIDE DINITRATE Inactive NORVASC 10 MG ORAL TABLET 1 tablet by mouth daily NORVASC 10 MG ORAL TABLET 528489 AMLODIPINE BESYLATE Inactive AZITHROMYCIN 250 MG ORAL TABLET 2 tablets PO today---then, 1 tablet PO daily x 4 more days (and 1 optional refill) AZITHROMYCIN 250 MG ORAL TABLET 052888 AZITHROMYCIN Inactive CHERATUSSIN AC 100-10 MG/5ML ORAL SOLUTION 7.5 mL PO q 4-6 hrs PRN cough 2014 CHERATUSSIN AC 100-10 MG/5ML ORAL SOLUTION 561699 GUAIFENESIN-CODEINE Inactive VIIBRYD 40 MG ORAL TABLET take 1 tab po qday for depression. 2014 VIIBRYD 40 MG ORAL TABLET VILAZODONE HCL Inactive HYDRALAZINE HCL 25 MG ORAL TABLET 1 tablet by mouth tid for hypertension 2013 HYDRALAZINE HCL 25 MG ORAL TABLET 680735 HYDRALAZINE HCL Inactive SPIRONOLACTONE 50 MG ORAL TABLET 1 tablet by mouth twice a day SPIRONOLACTONE 50 MG ORAL TABLET 019213 SPIRONOLACTONE Inactive FENOFIBRATE 145 MG ORAL TABLET Take one by mouth daily FENOFIBRATE 145 MG ORAL TABLET 129148 FENOFIBRATE Inactive PROTONIX 40 MG INTRAVENOUS SOLUTION RECONSTITUTED 1 po qday for acid reflux PROTONIX 40 MG INTRAVENOUS SOLUTION RECONSTITUTED 162998 PANTOPRAZOLE SODIUM Inactive CEFDINIR 300 MG ORAL CAPSULE Take 1 cap po bid x 10 days CEFDINIR 300 MG ORAL CAPSULE 132406 CEFDINIR Inactive PREDNISONE 20 MG ORAL TABLET 1 tablet twice daily for 2 days, then 1 tablet once daily for 2 days PREDNISONE 20 MG ORAL TABLET 808877 PREDNISONE Inactive NYSTATIN 054503 UNIT/ML MOUTH/THROAT SUSPENSION 5mL po QID x 10 days NYSTATIN 471281 UNIT/ML MOUTH/THROAT SUSPENSION 337604 NYSTATIN Inactive BETADINE 10 % EXTERNAL SOLUTION wash with solution to treat follicultis 07/29 BETADINE 10 % EXTERNAL SOLUTION 5163489 POVIDONE-IODINE Inactive TRILEPTAL 150 MG ORAL TABLET 1 TAB PO Q HS TRILEPTAL 150 MG ORAL TABLET 762488 OXCARBAZEPINE Inactive LAMISIL 125 MG ORAL PACKET 1 TAB PO DAILY LAMISIL 125 MG ORAL PACKET TERBINAFINE HCL Inactive HYDROCHLOROTHIAZIDE TABLET Take one by mouth daily HYDROCHLOROTHIAZIDE TABLET HYDROCHLOROTHIAZIDE TABS Inactive HYDROCODONE-ACETAMINOPHEN 5-325 MG ORAL TABLET 1 tab by mouth BID prn back pain HYDROCODONE-ACETAMINOPHEN 5-325 MG ORAL TABLET 267407 HYDROCODONE-ACETAMINOPHEN Inactive HYDRALAZINE HCL 50 MG ORAL TABLET TWO BY MOUTH THREE TIMES DAILY HYDRALAZINE HCL 50 MG ORAL TABLET 067614 HYDRALAZINE HCL Inactive LEVAQUIN 500 MG ORAL TABLET 1 tablet by mouth daily for 7 days LEVAQUIN 500 MG ORAL TABLET 631243 LEVOFLOXACIN Inactive SPIRONOLACTONE 25 MG ORAL TABLET 4 tablets by mouth daily SPIRONOLACTONE 25 MG ORAL TABLET 677594 SPIRONOLACTONE Inactive MECLIZINE HCL 25 MG ORAL TABLET one 4 times a day as needed for dizziness MECLIZINE HCL 25 MG ORAL TABLET 696473 MECLIZINE HCL Inactive CLONIDINE HCL 0.2 MG ORAL TABLET 1 TAB BY MOUTH EVERY 8 HOURS CLONIDINE HCL 0.2 MG ORAL TABLET 917926 CLONIDINE HCL Inactive CYCLOBENZAPRINE HCL 10 MG ORAL TABLET 1 tablet by mouth three times daily as needed for muscle spasm/pain for 10 days CYCLOBENZAPRINE HCL 10 MG ORAL TABLET 520935 CYCLOBENZAPRINE HCL Inactive VITAMIN D3 77758 UNIT ORAL CAPSULE 2 CAPS PO WEEKLY VITAMIN D3 98710 UNIT ORAL CAPSULE CHOLECALCIFEROL Inactive FIORICET 50-300-40 MG ORAL CAPSULE take 1 tab po qday prn migraines. FIORICET 50-300-40 MG ORAL CAPSULE 748576 BUTALBITAL-APAP- CAFFEINE Inactive FLONASE 50 MCG/ACT NASAL SUSPENSION 1 spray each nostril twice daily for allergies and runny nose FLONASE 50 MCG/ACT NASAL SUSPENSION 1066559 FLUTICASONE PROPIONATE Inactive LORATADINE 10 MG ORAL TABLET 1 tablet by mouth daily for congestion and allergies. LORATADINE 10 MG ORAL TABLET 081801 LORATADINE Inactive NITROSTAT 0.4 MG SUBLINGUAL TABLET SUBLINGUAL PRN NITROSTAT 0.4 MG SUBLINGUAL TABLET SUBLINGUAL 546502 NITROGLYCERIN Inactive GUAIFENESIN ER 600 MG ORAL TABLET EXTENDED RELEASE 12 HOUR 1 tab po q am 2016 GUAIFENESIN ER 600 MG ORAL TABLET EXTENDED RELEASE 12 HOUR GUAIFENESIN Inactive CYCLOBENZAPRINE HCL 10 MG ORAL TABLET 1 po TID PRN muscle spasm/pain for 10 days CYCLOBENZAPRINE HCL 10 MG ORAL TABLET 679426 CYCLOBENZAPRINE HCL Inactive TOPIRAMATE 50 MG ORAL TABLET take 1 tab po BID for migraines. TOPIRAMATE 50 MG ORAL TABLET 842811 TOPIRAMATE Inactive PREDNISONE 20 MG ORAL TABLET two tabs by mouth today, then one tab by mouth days two and three PREDNISONE 20 MG ORAL TABLET 668100 PREDNISONE Inactive TOPROL XL 200 MG ORAL TABLET EXTENDED RELEASE 24 HOUR Take one by mouth daily TOPROL XL 200 MG ORAL TABLET EXTENDED RELEASE 24 HOUR METOPROLOL SUCCINATE Inactive CYCLOBENZAPRINE HCL 10 MG ORAL TABLET 1 tablet by mouth three times daily as needed for muscle spasm/pain CYCLOBENZAPRINE HCL 10 MG ORAL TABLET 589609 CYCLOBENZAPRINE HCL Inactive TOPIRAMATE 50 MG ORAL TABLET 1 po BID for migraines TOPIRAMATE 50 MG ORAL TABLET 843070 TOPIRAMATE Inactive TEMAZEPAM 15 MG ORAL CAPSULE 1 TAB PO Q HS TEMAZEPAM 15 MG ORAL CAPSULE 031000 TEMAZEPAM Inactive IMDUR 60 MG ORAL TABLET EXTENDED RELEASE 24 HOUR take 1 tab po qday for blood pressure IMDUR 60 MG ORAL TABLET EXTENDED RELEASE 24 HOUR ISOSORBIDE MONONITRATE Inactive [id number]-0 0.3 MG/24HR TRANSDERMAL PATCH WEEKLY apply 2 patches q week for HTN [id number]-NWA-1 0.3 MG/24HR TRANSDERMAL PATCH WEEKLY 526869 CLONIDINE HCL Inactive ZITHROMAX 250 MG ORAL TABLET 2 po today, then 1 po q days 2-5 ZITHROMAX 250 MG ORAL TABLET 434920 AZITHROMYCIN Inactive TERBINAFINE HCL 250 MG ORAL TABLET 1 tab po qday for foot infection TERBINAFINE HCL 250 MG ORAL TABLET 777937 TERBINAFINE HCL Inactive KEFLEX 500 MG ORAL CAPSULE 1 po TID x 10 days KEFLEX 500 MG ORAL CAPSULE 381914 CEPHALEXIN Inactive BACTRIM DS 800-160 MG ORAL TABLET 1 tab by mouth twice daily 2015 BACTRIM DS 800-160 MG ORAL TABLET 868905 TRIMETHOPRIM- SULFAMETHOXAZOLE Inactive PREDNISONE 20 MG ORAL TABLET take 3 tabs daily for 3 days, 2 tabs daily for 3 days, 1 tab daily for 3 days, 1/2 tab daily for 4 days PREDNISONE 20 MG ORAL TABLET 746971 PREDNISONE Inactive AZITHROMYCIN 250 MG ORAL TABLET 2 po qd x 1 day, then 1 po qd x 4 days 09/20 AZITHROMYCIN 250 MG ORAL TABLET 501788 AZITHROMYCIN Inactive SINGULAIR 10 MG ORAL TABLET 1 po qday for allergies. SINGULAIR 10 MG ORAL TABLET 787282 MONTELUKAST SODIUM Inactive Advance Directives Directive Description [...] AUTO - Chemistry sodium, serum 142 mmol/L 992-756 7102/07/17 carbon dioxide, venous blood 28.2 mmol/L 21.0-32.0 [...] Panel - Chemistry sodium, serum 141 mmol/L 519-089 1898/02/13 carbon dioxide, venous blood 23.9 mmol/L 21.0-32.0 [...] 6.9 % 4.3-6.0 sodium, serum 139 mmol/L 336-944 0484/01/04 potassium, serum 3.9 mmol/L 3.5-5.2 chloride, serum [...] 1.80 ng/mL 0.00-4.00 Lab Report: VITAMIN D, 25-HYDROXY/20268 - Chemistry vitamin D 25-hydroxy, serum 25 ng/mL 30-100 Encounters Code Encounter Date Provider Facility CPT-27988 Level 3 Est. Patient 16:04:17 CDT Robbie Busby MD [facility] CPT-94145 Level 4 Est. Patient 09:50:01 PROPERTY INSPECTOR Robbie Busby MD [facility] CPT-99011 Level 4 Est. Patient 09:42:08 PROPERTY INSPECTOR Robbie Busby MD [facility] CPT-00731 Level 4 Est. Patient 13:07:39 PROPERTY INSPECTOR Robbie Busby MD [facility] CPT-45854 Level 4 Est. Patient 15:23:44 PROPERTY INSPECTOR Desmond Diaz DO [facility] CPT-29195 Level 3 Est. Patient 15:40:49 CDT Robbie Busby MD [facility] CPT-77666 Level 4 Est. Patient 15:18:19 CDT Robbie Busby MD [facility] CPT-03669 Level 3 Est. Patient 09:00:37 CDT Rober Rodolfoneha [facility] CPT-37655 Level 3 Est. Patient 16:07:10 CDT Robbie Busby MD [facility] CPT-66207 Level 4 Est. Patient 11:56:16 CDT Erin Miguelzane [facility] CPT-56267 Level 3 Est. Patient 17:48:02 CDT Robbie Busby MD [facility] CPT-40834 Level 4 Est. Patient 12:00:49 PROPERTY INSPECTOR Rober Rodríguez [facility] CPT-90332 Level 3 Est. Patient 09:16:37 CDT Robbie Busby MD [facility] CPT-85587 Level 3 Est. Patient 19:38:43 CDT Robbie Busby MD [facility] CPT-17539 Level 3 Est. Patient 11:53:38 CDT Robbie Busby MD [facility] CPT-25378 Level 4 Est. Patient 12:52:22 CDT Rober Rodríguez [facility] CPT-52367 Level 4 Est. Patient 22:55:17 CDT Robbie Busby MD [facility] CPT-25914 Level 3 Est. Patient 12:38:24 CDT Desmond Diaz DO [facility] CPT-52262 Level 4 Est. Patient 11:25:03 PROPERTY INSPECTOR Robbie Busby MD [facility] CPT-13608 Level 4 Est. Patient 14:50:10 CDT Robbie Busby MD [facility] CPT-90064 Level 4 Est. Patient 23:30:43 CDT Robbie Busby MD [facility] CPT-27953 Level 4 Est. Patient 10:30:43 CDT Robbie Busby MD [facility] CPT-26687 Level 3 Est. Patient 17:08:12 CDT Alex ALVAREZ [facility] CPT-45350 Level 4 Est. Patient 17:51:38 CDT Robbie Busby MD [facility] CPT-81895 Level 4 Est. Patient 14:00:21 CDT oRbbie Busby MD [facility] CPT-56045 Level 4 Est. Patient 12:46:48 CDT Robbie Busby MD [facility] CPT-55090 Level 4 Est. Patient 13:34:33 CDT Robbie Busby MD [facility] CPT-22079 Level 4 Est. Patient 16:58:28 CDT Robbie Busby MD [facility] CPT-94417 Level 3 Est. Patient 19:36:53 CDT Alex Shaw [facility] CPT-71262 Level 3 Est. Patient 12:58:15 CDT Robbie Busby MD [facility] Procedures Code Procedure Name Date Entry Date Standard Description CPT-J1100 Decadron 8mg (Dexamethasone) 16:04:17 CDT CPT-J1040 Depo Medrol 80 mg (Methyl Prednisolone Acetate) 16:04: 17 CDT CPT-J1071 Depo Testosterone 200mg 08:56:46 CDT CPT-00251 Abx/Therapy Injection 08:56:45 CDT CPT-J1071 Depo Testosterone 200mg 08:26:27 CDT CPT-63461 Abx/Therapy Injection 08:26:27 CDT CPT-J1071 Depo Testosterone 200mg 10:27:10 CDT CPT-06710 Abx/Therapy Injection 10:27:10 CDT CPT-J1071 Depo Testosterone 200mg 16:10:29 PROPERTY INSPECTOR CPT-61085 Abx/Therapy Injection 16:10:29 PROPERTY INSPECTOR CPT-J1071 Depo Testosterone 200mg 16:13:47 PROPERTY INSPECTOR CPT-73408 Abx/Therapy Injection 16:13:46 PROPERTY INSPECTOR CPT-J1071 Depo Testosterone 200mg 15:33:58 PROPERTY INSPECTOR CPT-98597 Abx/Therapy Injection 15:33:58 PROPERTY INSPECTOR CPT-J1071 Depo Testosterone 200mg 09:38:36 PROPERTY INSPECTOR CPT-99050 Abx/Therapy Injection 09:38:36 PROPERTY INSPECTOR CPT-J1071 Depo Testosterone 200mg 10:22:56 PROPERTY INSPECTOR CPT-17703 Abx/Therapy Injection 10:22:56 PROPERTY INSPECTOR CPT-J1071 Depo Testosterone 200mg 15:40:23 CDT CPT-05548 Abx/Therapy Injection 15:40:23 CDT CPT-J1071 Depo Testosterone 200mg 14:20:43 CDT CPT-37654 Abx/Therapy Injection 14:20:43 CDT CPT-J1071 Depo Testosterone 200mg 14:17:22 CDT CPT-81513 Abx/Therapy Injection 14:17:22 CDT CPT-J1071 Depo Testosterone 200mg 09:03:53 CDT CPT-09216 Abx/Therapy Injection 09:03:53 CDT CPT-G0439 Subsequent Annual Wellness Exam 16:47:44 CDT CPT-J1071 Depo Testosterone 200mg 09:06:28 CDT CPT-14509 Abx/Therapy Injection 09:06:28 CDT CPT-J1071 Depo Testosterone 200mg 08:30:01 CDT CPT-81665 Abx/Therapy Injection 08:30:01 CDT CPT-J1071 Depo Testosterone 200mg 08:24:00 CDT CPT-16913 Abx/Therapy Injection 08:24:00 CDT CPT-82278 Venipuncture Draw Fee 14:39:06 CDT CPT-89554 Ribs unilateral 2V - XRAY USE ONLY 12:10:11 CDT CPT-23543 First Vx - Ix admin for Medicare patients 16:32:53 CDT CPT-98349 Boostrix Intramuscular Suspension 5-2.5-18.5 16:32:53 CDT CPT-01045 TB Skin Test 11:42:28 CDT CPT-40623 Tdap 7yrs or > 11:42:28 CDT CPT-J0696 Rocephin 1000 mg (Ceftriaxone) 17:43:43 PROPERTY INSPECTOR CPT-J1040 Depo Medrol 80 mg (Methyl Prednisolone Acetate) 17:43: 43 PROPERTY INSPECTOR CPT-J1100 Decadron 8mg (Dexamethasone) 17:43:42 PROPERTY INSPECTOR CPT-34434 Abx/Therapy Injection 17:43:42 PROPERTY INSPECTOR CPT-43448 Abx/Therapy Injection 17:43:42 PROPERTY INSPECTOR CPT-J1040 Depo Medrol 80 mg (Methyl Prednisolone Acetate) 09:43: 34 PROPERTY INSPECTOR CPT-J1100 Decadron 8mg (Dexamethasone) 09:43:34 PROPERTY INSPECTOR CPT-J0696 Rocephin 1gm Inj Solr 09:43:34 PROPERTY INSPECTOR CPT-70873 Wound Culture - LAB USE ONLY 14:00:21 CDT CPT-I/D I/D Abscess 09:16:37 CDT CPT-76365 Venipuncture Draw Fee 15:20:23 CDT CPT-80381 Microalbumin - LAB USE ONLY 16:02:19 CDT CPT-98151 CBC - LAB USE ONLY 16:02:19 CDT CPT-54383 Venipuncture Draw Fee 16:02:19 CDT CPT-G0438 Initial Annual Wellness Exam 08:10:28 CDT CPT-66410 Venipuncture Draw Fee 13:07:17 CDT CPT-G0008 Administration of Influenza Virus Vaccine 16:09:59 CDT CPT-42664 Fluzone Quadrivalent Intramuscular Suspension 0.5 ML 16: 09:59 CDT CPT-32798 Spec Collection and Handling Fee 15:05:50 CDT
--- OUTSIDE RECORDS SUMMARY | 2018-04-18 15:37 | XMS REPORT ---
Author Author NADIR NOEL Organization [facility] Address [address] [place] [address] Care Team Providers Care Sand Slinger Name Role Phone NADIR NOEL Unavailable PROBLEMS Type Condition ICD9-CM Code ILQ17-FX Code Onset Dates Condition Status SNOMED Code Problem Reactive depression F32.9 Active 23758213 Problem Morbid obesity due to excess calories E66.01 Active 030042085 Problem Anxiety F41.9 Active 51381030 Problem Back pain M54.9 Active 102124739 Problem Gout M10.9 Active 73167814 Problem Accelerated hypertension I10 Active [id number] ALLERGIES No Information ENCOUNTERS Encounter Location Date Diagnosis [facility] [id number] [place] [address] 11126- 5824 Dec, [facility] [id number] [place] [address] 90066- 2516 Nov, Anxiety F41.9 [facility] [id number] [place] [address] 64266- 5754 Sep, Back pain M54.9 and Anxiety F41.9 [facility] [id number] [place] [address] 85645- 6101 Sep, Anxiety F41.9 [facility] [id number] [place] [address] 43613- 3106 Aug, Back pain M54.9 and Anxiety F41.9 [facility] [id number] [place] [address] 17756- 9028 Aug, Back pain M54.9 and Anxiety F41.9 [facility] [id number] [place] [address] 76959- 0903 Jul, [facility] [id number] [place] [address] 69192- 0590 27 Jul, 2017 Encounter for immunization Z23 ; Back pain M54.9 ; Anxiety F41.9 ; Reactive depression F32.9 and Morbid obesity due to excess calories E66.01 [facility] [id number] [place] [address] 88816- 2163 08 Jul, 2017 Back pain M54.9 and Anxiety F41.9 [facility] [address] 50728- 5339 06 Jun, 2017 Back pain M54.9 and Anxiety F41.9 [facility] [address] 08140- 0330 14 May, 2017 Anxiety F41.9 [facility] [id number] [place] [address] 20890- 1067 06 May, 2017 Back pain M54.9 [facility] [address] 71304- 1299 Apr, Back pain M54.9 [facility] [id number] [place] [address] 48919- 7828 Apr, Anxiety F41.9 [facility] [id number] [place] [address] 31901- 4483 Mar, Back pain M54.9 [facility] [id number] [place] [address] 39683- 5068 Feb, Back pain M54.9 and Anxiety F41.9 [facility] [id number] [place] [address] 10333- 6453 January, Back pain M54.9 [facility] [address] 95041- 0025 January, Acute prostatitis N41.0 [facility] [id number] [place] [address] 52903- 4487 January, Anxiety F41.9 and Back pain M54.9 [facility] [id number] [place] [address] 28531- 1956 14 Dec, 2016 Back pain M54.9 [facility] [id number] [place] [address] 28829- 2565 24 Nov, 2016 Back pain M54.9 [facility] [id number] [place] [address] 83898- 4913 14 Nov, 2016 [facility] [id number] [place] [address] 90804- 7184 Nov, Back pain M54.9 ; Anxiety F41.9 and Morbid obesity due to excess calories E66.01 [facility] [id number] [place] [address] 80480- 4613 07 Nov, 2016 Anxiety F41.9 [facility] [id number] [place] [address] 24709- 4150 Oct, Back pain M54.9 [facility] [id number] [place] [address] 01169- 3616 Oct, [facility] [id number] [place] [address] 51449- 9776 Oct, Anxiety F41.9 [facility] [id number] [place] [address] 34959- 2724 Sep, Back pain M54.9 [facility] [id number] [place] [address] 21415- 8078 Aug, Back pain M54.9 and Anxiety F41.9 [facility] [id number] [place] [address] 20803- 3774 Aug, [facility] [id number] [place] [address] 95101- 3401 Aug, Back pain M54.9 [facility] [id number] [place] [address] 33563- 4806 Aug, Back pain M54.9 and Anxiety F41.9 [facility] [id number] [place] [address] 55273- 2770 Aug, Back pain M54.9 [facility] [id number] [place] [address] 73274- 7416 Jul, [facility] [id number] [place] [address] 71044- 1460 Jun, [facility] [id number] [place] [address] 31401- 0723 May, [facility] [id number] [place] [address] 40227- 9558 Apr, [facility] [id number] [place] [address] 99287- 5686 Apr, Acute frontal sinusitis, recurrence not specified J01.10 and Exophthalmos H05.20 [facility] [id number] [place] [address] 03923- 4702 Apr, [facility] [id number] [place] [address] 01076- 5555 Mar, [facility] [id number] [place] [address] 40594- 6411 Mar, [facility] [id number] [place] [address] 86658- 9707 Feb, Back pain M54.9 [facility] [id number] [place] [address] 78179- 5108 January, Gout M10.9 [facility] [id number] [place] [address] 23130- 6475 January, Gout M10.9 [facility] [id number] [place] [address] 01320- 3414 Dec, Gout M10.9 [facility] [id number] [place] [address] 97256- 0327 Dec, [facility] [id number] [place] [address] 97805- 6462 Dec, Anxiety F41.9 [facility] [address] 85894 2542 Nov, Back pain M54.9 [facility] [address] 72690 2546 Sep, Back pain M54.9 and Accelerated hypertension I10 [facility] [address] 57264 2540 Sep, Insomnia G47.00 [facility] [address] 88248- 0490 Sep, Back pain M54.9 [facility] [address] 71426- 5316 Sep, [facility] [address] 72431- 1240 Aug, [facility] [address] 13281- 7968 Aug, [facility] [address] 04009- 4226 Jul, [facility] [id number] [place] [address] 50604- 3544 Jun, [facility] [address] 70664 2549 Jun, Encounter for immunization Z23 ; Back pain M54.9 and Anxiety F41.9 [facility] [address] 37500- 0804 Jun, [facility] [id number] [place] [address] 32611- 2547 May, [facility] [id number] [place] [address] 89730- 2541 Apr, [facility] [address] [id number] [place] [address]- 4083 Mar, [facility] [place] [facility] [address] [id number] [place] [address]- 2104 Feb, [facility] [place] [facility] [address] [id number] [place] [address]- 7493 January, [facility] [place] [facility] [address] [id number] [place] [address]- 2532 January, [facility] [place] [facility] [address] [id number] [place] [address]- 7283 January, [facility] [place] [facility] [address] [id number] [place] [address]- 6040 Dec, [facility] [place] [facility] [address] [id number] [place] [address]- 6433 Dec, [facility] [place] [facility] [address] [id number] [place] [address]- 8802 Nov, [facility] [place] [facility] [address] [id number] [place] [address]- 8633 Nov, [facility] [place] [facility] [address] [id number] [place] [address]- 0267 Nov, [facility] [place] [facility] [address] [id number] [place] [address]- 3233 Nov, [facility] [place] [facility] [address] [id number] [place] [address]- 7895 Nov, [facility] [place] [facility] [address] [id number] [place] [address]- 4310 Nov, [facility] [place] [facility] [address] [id number] [place] [address]- 9728 Nov, [facility] [place] [facility] [address] [id number] [place] [address]- 4635 Nov, [facility] [place] [facility] [address] [id number] [place] [address]- 4875 Nov, [facility] [place] [facility] [address] [id number] [place] [address]- 5584 Oct, 2014 [facility] [place] [facility] [address] [id number] [place] [address]- 2216 Oct, 2014 [facility] [place] [facility] [address] [id number] [place] [address]- 1366 Oct, 2014 [facility] [place] [facility] [address] [id number] [place] [address]- 7557 Oct, 2014 [facility] [place] [facility] [address] [id number] [place] [address]- 7261 Oct, 2014 [facility] [place] [facility] [address] [id number] [place] [address]- 7487 Oct, [facility] [place] [facility] [address] [id number] [place] [address]- 6965 Oct, 2014 [facility] [place] [facility] [address] [id number] [place] [address]- 7550 Sep, [facility] [place] [facility] [address] [id number] [place] [address]- 5990 Sep, [facility] [place] [facility] [address] [facility] [id number] [place] [address]- 3999 Sep, [facility] [place] [facility] [address] [facility] [id number] [place] [address]- 8664 Sep, [facility] [place] [facility] [address] [id number] [address]- 2589 Aug, [facility] [place] [facility] [address] [id number] [place] [address]- 4236 Aug, [facility] [place] [facility] [address] [facility] [id number] [place] [address]- 4769 Aug, [facility] [place] [facility] [address] [id number], [place] [address]- 6500 Aug, [facility] [place] [facility] [address] [id number] [place] [address]- 5675 Aug, [facility] [place] [facility] [address] [id number] [place] [address]- 3738 Aug, [facility] [place] [facility] [address] [id number] [place] [address]- 8035 Jul, [facility] [place] [facility] [address] [id number] [place] [address]- 1715 Jul, [facility] [place] [facility] [address] [id number] [place] [address]- 6841 Jul, [facility] [place] [facility] [address] [id number] [place] [address]- 5845 Jul, [facility] [place] [facility] [address] [id number] [place] [address]- 7642 Jul, [facility] [place] [facility] [address] [id number] [place] [address]- 6336 Jun, [facility] [place] [facility] [address] [id number] [place] [address]- 2471 Jun, [facility] [place] [facility] [address] [id number] [place] [address]- 4329 Jun, [facility] [place] [facility] [address] [id number] [place] [address]- 4927 Jun, [facility] [place] [facility] [address] [id number] [place] [address]- 5865 Jun, [facility] [place] [facility] [address] [id number] [place] [address]- 6019 May, [facility] [place] [facility] [address] [id number] [place] [address]- 5198 May, [facility] [place] [facility] [address] [id number] [place] [address]- 6716 May, [facility] [place] [facility] [address] [id number] [place] [address]- 0106 May, [facility] [place] [facility] [address] [id number] [place] [address]- 8415 May, [facility] [place] [facility] [address] [id number] [place] 4170 May, [facility] [place] [facility] [address] [id number] [place] [address]- 2293 May, [facility] [place] [facility] [address] [id number] [place] [address]- 7459 May, [facility] [place] [facility] [address] [id number] [place] [address]- 5025 Apr, [facility] [place] [facility] [address] [id number] [place] [address]- 6258 Apr, [facility] [place] [facility] [address] [id number] [place] [address]- 4861 Mar, [facility] [place] [facility] [address] [id number] [place] [address]- 2574 Mar, [facility] [place] [facility] [address] [id number] [place] [address]- 7299 Feb, [facility] [place] [facility] [address] [id number] [place] [address]- 5346 Feb, [facility] [place] [facility] [address] [id number] [place] [address]- 9780 January, [facility] [place] [facility] [address] [id number] [place] [address]- 1638 January, [facility] [place] [facility] [address] [id number] [place] [address]- 8209 Dec, [facility] [place] [facility] [address] [id number] [place] [address]- 5825 Dec, [facility] [place] [facility] [address] [id number] [place] [address]- 3190 Dec, [facility] [place] [facility] [address] [id number] [place] [address]- 5855 Dec, [facility] [place] [facility] [address] [id number] [place] [address]- 3185 Nov, [facility] [place] [facility] [address] [id number] [place] [address]- 0386 Nov, [facility] [place] [facility] [address] [id number] [place] [address]- 9475 Oct, [facility] [place] [facility] [address] [id number] [place] [address]- 6056 Oct, [facility] [place] [facility] [address] [id number] [place] [address]- 1468 Oct, [facility] [place] [facility] [address] [id number] [place] [address]- 8641 Oct, [facility] [place] [facility] [address] [id number] [place] [address]- 6408 Oct, [facility] [place] [facility] [address] [id number] [place] [address]- 8502 Oct, [facility] [place] [facility] [address] [facility] [id number] [place] [address]- 5167 Oct, [facility] [place] [facility] [address] [facility] [id number] [place] [address]- 6524 Oct, [facility] [place] [facility] [address] [id number] [place] [address]- 0296 Sep, [facility] [place] [facility] [address] [id number] [place] [address]- 7740 Sep, [facility] [place] [facility] [address] [id number] [place] [address]- 6656 Aug, [facility] [place] [facility] [address] [id number] [place] [address]- 6698 Aug, [facility] [place] [facility] [address] [facility] [id number], [place] [address]- 5529 Aug, [facility] [place] [facility] [address] [id number] [place] 8427 Aug, [facility] [place] [facility] [address] [id number] [place] 9352 Aug, [facility] [place] [facility] [address] [id number] [place] 2131 Aug, [facility] [place] [facility] [address] [id number], [place] [address]- 3062 Jul, [facility] [place] [facility] [address] [id number] [place] [address]- 7893 Jul, [facility] [place] [facility] [address] [id number] [place] [address]- 8055 Jul, [facility] [place] [facility] [address] [id number], [place] [address]- 0108 Jul, [facility] [place] [address] [facility] [id number] [place] [id number] Jul, [facility] [place] [facility] [address] [id number], [place] [address]- 3022 Jul, [facility] [place] [facility] [address] [id number] [place] [address]- 3816 Jun, [facility] [place] [facility] [address] [id number], [place] [address]- 2280 31 Jun, 2013 [facility] [place] [facility] [address] [id number], [place] [address]- 9584 30 Jun, 2013 [facility] [place] [facility] [address] [id number], [place] [address]- 5216 29 Jun, 2013 [facility] [place] [facility] [address] [id number], [place] [address]- 9893 29 Jun, 2013 [facility] [place] [facility] [address] [id number], [place] [address]- 6016 15 Jun, 2013 [facility] [place] [facility] [address] [id number] [place] [address]- 5737 15 Jun, 2013 [facility] [place] [facility] [address] [id number] [place] [address]- 1553 02 Jun, 2013 [facility] [place] [facility] [address] [id number] [place] [address]- 7471 Jun, [facility] [place] [facility] [address] [id number] [place] [address]- 2699 20 May, 2013 [facility] [place] [facility] [address] [id number] [place] [address] 2548 18 May, 2013 [facility] [place] [facility] [address] [id number] [place] [address]- 6828 10 May, 2013 [facility] [place] [facility] [address] [id number] [place] [address]- 2898 09 May, 2013 [facility] [place] [facility] [address] [id number] [place] [address]- 8570 05 May, 2013 [facility] [place] [facility] [address] [id number] [place] [address]- 3871 03 May, 2013 [facility] [place] [facility] [address] [id number] [place] [address]- 2798 Apr, [facility] [place] [facility] [address] [id number] [place] [address]- 8570 Apr, [facility] [place] [facility] [address] [id number] [place] [address]- 6063 Apr, [facility] [place] [facility] [address] [id number] [place] [address]- 2543 Apr, [facility] [place] [facility] [address] [id number] [place] [address]- 1043 Apr, [facility] [place] [facility] [address] [id number] [place] [address]- 254 14 Apr, 2013 [facility] [place] [facility] [address] [id number] [place] [address]- 7362 Apr, [facility] [place] [facility] [address] [id number] [place] [address]- 9410 Apr, [facility] [place] [facility] [address] [id number] [place] [address]- 3920 Mar, [facility] [place] [facility] [address] [id number] [place] [address] Mar, [facility] [place] [facility] [address] [id number] [place] [address] Mar, [facility] [address] [id number] [place] [address] Mar, [facility] [place] [facility] [address] [id number] [place] [address] Mar, [facility] [address] [id number] [place] [address] Mar, [facility] [place] [facility] [address] [id number] [place] [address] Mar, [facility] [place] [facility] [address] [id number] [place] [address] Mar, [facility] [place] [facility] [address] [id number] [place] [address] Mar, [facility] [place] [facility] [address] [id number] [place] [address] Mar, [facility] [place] [facility] [address] [id number] [place] [address] Feb, [facility] [place] [facility] [address] [id number] [place] [address] 14 Feb, 2013 [facility] [place] [facility] [address] [id number] [place] [address] Feb, [facility] [place] [facility] [address] [id number] [place] [address] 05 Feb, 2013 [facility] [place] [facility] [address] [id number] [place] [address] Feb, [facility] [address] [id number] [place] [address] January, [facility] [address] [id number] [place] [address] January, [facility] [address] [id number] [place] [address] January, [facility] [place] [facility] [address] [id number] [place] [address]- [address] January, [facility] [address] [id number] [place] [address]- [address] Dec, [facility] [address] [id number] [place] [address] Nov, [facility] [address] [id number] [place] [address] Nov, [facility] [place] [facility] [address] [id number] [place] [address] Nov, [facility] [address] [id number] [place] [address] Nov, [facility] [place] [facility] [address] [id number] [place] [address] Nov, [facility] [address] [id number] [place] [address] 97[address] Nov, [facility] [place] [facility] [address] [id number] [place] [address] Oct, [facility] [place] [facility] [address] [id number] [place] [address]367 Oct, [facility] [place] [facility] [address] [id number] [place] [address] Oct, [facility] [place] [facility] [address] [id number] [place] [address] Oct, [facility] [place] [facility] [address] [id number] [place] [address]- [address]75 29 Sep, 2012 [facility] [address] [id number] [place] [address] Sep, [facility] [place] [facility] [address] [id number] [place] [address]- [address]107 Sep, [facility] [place] [facility] [address] [id number] [place] [address]239 Sep, [facility] [place] [facility] [address] [id number] [place] [address]165 Sep, [facility] [place] [facility] [address] [id number] [place] [address]85 Sep, [facility] [place] [facility] [address] [id number] [place] [address] 36[address] Sep, [facility] [place] [facility] [address] [id number] [place] [address] 1979 Sep, [facility] [address] [id number] [place] [address] Aug, [facility] [place] [facility] [address] [id number] [place] [address]- [address] Aug, [facility] [place] [facility] [address] [id number] [place] [address] 9081 18 Aug, 2012 [facility] [place] [facility] [address] [id number] [place] [address] 8861 18 Aug, 2012 [facility] [place] [facility] [address] [id number] [place] [address]- [address]102 18 Aug, 2012 [facility] [place] [facility] [address] [id number] [place] [address] 18 Aug, 2012 [facility] [place] [facility] [address] [id number] [place] [address] 1442 Aug, [facility] [place] [facility] [address] [id number] [place] [address] Aug, [facility] [place] [facility] [address] [id number] [place] [address] Aug, [facility] [place] [facility] [address] [id number] [place] [address]- 6229 Aug, [facility] [place] [facility] [address] [facility] [id number] [place] [address] Aug, [facility] [place] [facility] [address] [id number] [place] [address] Aug, [facility] [place] [facility] [address] [id number] [place] [address]- 0796 Aug, [facility] [place] [facility] [address] [id number] [place] [address]- 45[address] Aug, [facility] [place] [facility] [address] [id number] [place] [address]- 9824 Aug, [facility] [place] [facility] [address] [id number] [place] [address]- 2766 Aug, [facility] [place] [facility] [address] [id number] [place] [address]- 1674 14 Jul, 2012 [facility] [place] [facility] [address] [id number] [place] [address]- 2905 14 Jul, 2012 [facility] [place] [facility] [address] [id number], [place] [address] 13 Jul, 2012 [facility] [place] [facility] [address] [id number], [place] [address]- [address] 13 Jul, 2012 [facility] [place] [facility] [address] [id number] [place] [address]- [address]271 20 May, 2012 [facility] [place] [facility] [address] [id number], [place] [address]- [address] 05 May, 2012 [facility] [place] [facility] [address] [facility] [id number], [place] [address]97 15 Apr, 2012 [facility] [place] [facility] [address] [id number] [place] [address]- 6959 Apr, [facility] [place] [facility] [address] [id number] [place] [address]- 5310 Apr, [facility] [place] [facility] [address] [id number] [place] [address] Apr, [facility] [place] [facility] [address] [id number] [place] [address] Apr, [facility] [place] [facility] [address] [id number] [place] [address] Mar, [facility] [place] [facility] [address] [id number] [place] [address] Mar, [facility] [place] [facility] [address] [id number] [place] [address] Mar, [facility] [place] [facility] [address] [id number] [place] [address] Feb, [facility] [place] [facility] [address] [id number] [place] [address] Feb, [facility] [place] [facility] [address] [id number] [place] [address] Feb, [facility] [place] [facility] [address] [id number] [place] [address] January, [facility] [place] [facility] [address] [id number] [place] [address] January, [facility] [place] [facility] [address] [id number] [place] [address] Dec, [facility] [place] [facility] [address] [id number] [place] [address] 17 Dec, 2011 [facility] [place] [facility] [address] [id number] [place] [id number] Dec, [facility] [place] [facility] [address] [id number] [place] [address] Dec, [facility] [place] [facility] [address] [id number] [place] [address] Nov, [facility] [place] [facility] [address] [id number] [place] [address] Nov, [facility] [place] [facility] [address] [id number] [place] [address] Nov, [facility] [place] [facility] [address] [id number] [place] [address] Oct, [facility] [place] [facility] [address] [id number] [place] [address] Oct, [facility] [place] [facility] [address] [id number] [place] [address] Oct, [facility] [place] [facility] [address] [id number] [place] [address] Sep, [facility] [place] [facility] [address] [id number] [place] [address] Sep, [facility] [place] [facility] [address] [id number] [place] [address] Aug, [facility] [place] [facility] [address] [facility] [id number] [place] [address] Aug, [facility] [place] [facility] [address] [facility] [id number] [address] Aug, [facility] [place] [facility] [address] [id number], [place] [address] Jul, [facility] [place] [facility] [address] [id number] [place] [address] Jul, [facility] [place] [facility] [address] [id number] [place] [address] Jun, [facility] [place] [facility] [address] [id number], [place] [address] Jun, [facility] [place] [facility] [address] [id number], [place] [address] Aug, [facility] [address] [address] Aug, [facility] [id number], [place] [address] Aug, [facility] [id number], [place] [address] January, [facility] [id number], [place] [address] Sep, [facility] [id number] [place] [address] Jul, [facility] [id number] [address] Jul, [facility] [address], [place] [address] Jul, [facility] [address], [place] [address] Jun, [facility] [id number], [place] [address] Jun, [facility] [id number], [place] [address] Jun, [facility] [address], [place] [address] Jun, [facility] [address] [address] May, IMMUNIZATIONS No Known Immunizations SOCIAL HISTORY Never Assessed REASON FOR VISIT Oxycontin 04/05 PLAN OF CARE VITAL SIGNS MEDICATIONS Medication Instructions Dosage Frequency Start Date End Date Duration Status OxyContin 10 mg Orally every 12 hrs 1 tablet 12h 20 Mar, 2017 28 days Active RESULTS No Results PROCEDURES No Known procedures INSTRUCTIONS MEDICATIONS ADMINISTERED No Known Medications MEDICAL (GENERAL) HISTORY Type Description Date Medical History hypertension Medical History heart murmur Medical History acute renal failure Medical History hyperlipidemia Medical History hx of pancreatitis Medical History anxiety Medical History chronic back pain from an old injury Medical History congestive heart failure Surgical History right femur repair Hospitalization History multiple hospitilizations r/t chest pain and hypertension Hospitalization History hospital stay for heart trouble - congestive heart failure Hospitalization History cancer/gout 12/2015 Hospitalization History Flu and hypertension at [facility] 10/2016
--- OUTSIDE RECORDS SUMMARY | 2018-04-18 15:37 | XMS REPORT ---
Author Author NADIR NOEL Organization [facility] Address [address] [place] [address] Care Team Providers Care Associate Java Developer Name Role Phone NADIR NOEL Unavailable PROBLEMS Type Condition ICD9-CM Code LTW03-HU Code Onset Dates Condition Status SNOMED Code Problem Morbid obesity due to excess calories E66.01 Active 462165687 Problem Gout M10.9 Active 39808900 Problem Back pain M54.9 Active 654101340 Problem Accelerated hypertension I10 Active 37017729 Problem Anxiety F41.9 Active 91275178 ALLERGIES No Information SOCIAL HISTORY Never Assessed PLAN OF CARE VITAL SIGNS MEDICATIONS Medication Instructions Dosage Frequency Start Date End Date Duration Status OxyContin 10 MG Orally every 12 hrs 1 tablet 12h 13 Aug, 2016 Active RESULTS No Results PROCEDURES No Known procedures IMMUNIZATIONS No Known Immunizations MEDICAL (GENERAL) HISTORY Type Description Date Medical [...] 12/2015 Hospitalization History Flu and hypertension at [facility] 10/2016
--- OUTSIDE RECORDS SUMMARY | 2018-04-18 15:37 | XMS REPORT ---
Author Author NADIR NOEL Organization [facility] Address [address] [place] [address] Care Team Providers Care Combat Systems Engineer Name Role Phone NADIR NOEL Unavailable PROBLEMS Type Condition ICD9-CM Code GUD09-VQ Code Onset Dates Condition Status SNOMED Code Problem Morbid obesity due to excess calories E66.01 Active 152762296 Problem Gout M10.9 Active 67549265 Problem Back pain M54.9 Active 316721153 Problem Accelerated hypertension I10 Active 41175771 Problem Anxiety F41.9 Active 09597649 ALLERGIES No Information SOCIAL HISTORY Never Assessed PLAN OF CARE VITAL SIGNS MEDICATIONS Medication Instructions Dosage Frequency Start Date End Date Duration Status Alprazolam 2 MG Orally 2 times a day 1 tablet 12h 28 days Active OxyContin 10 mg Orally every 12 hrs 1 tablet 12h January, 28 days Active RESULTS No Results PROCEDURES [...] 12/2015 Hospitalization History Flu and [facility] 10/2016
--- OUTSIDE RECORDS SUMMARY | 2018-04-18 15:37 | XMS REPORT ---
Author Author VENUS SAUL [facility] Address [address] [place] [address] Care Team Providers Care Group Supervisor Yard Name Role Phone VENUS SAUL Unavailable PROBLEMS Type Condition ICD9-CM Code NWH09-YE Code Onset Dates Condition Status SNOMED Code Problem Morbid obesity due to excess calories E66.01 Active 882391067 Problem Gout M10.9 Active 34171763 Problem Back pain M54.9 Active 031115605 Problem Accelerated hypertension I10 Active 58032591 Problem Anxiety F41.9 Active 49941643 ALLERGIES Unknown Allergies SOCIAL HISTORY No smoking Hx information available PLAN OF CARE VITAL SIGNS MEDICATIONS Medication Instructions Dosage Frequency Start Date End Date Duration Status OxyContin 10 MG Orally every 12 hrs 1 tablet 12h 13 Aug, 2016 Active RESULTS No Results PROCEDURES No Known procedures IMMUNIZATIONS No Known Immunizations
--- OUTSIDE RECORDS SUMMARY | 2018-04-18 15:37 | XMS REPORT ---
Author Author NADIR NOEL Organization [employer] Address Unknown Phone Unavailable Care Team Providers Care Java Technical Manager Name Role Phone NADIR NOEL CP Unavailable Allergies No Known Allergies Problems Problem Type Condition Code Onset Dates Condition Status Problem Accelerated hypertension I10 Active Problem Back pain M54.9 Active Problem Gout M10.9 Active Problem Unspecified essential hypertension 401.9 Active Problem Impotence of organic origin 607.84 Active Problem Anxiety F41.9 Active Problem Coronary atherosclerosis of unspecified type of vessel, [place] or graft 414.00 Active Medications No Known Medications Results No Known Results Summary Purpose [employer] Submission
--- OUTSIDE RECORDS SUMMARY | 2018-04-18 15:37 | XMS REPORT ---
Author Author NADIR NOEL Organization [employer] Address Unknown Phone Unavailable Care Team Providers Care Boiler Maker Name Role Phone NADIR NOEL CP Unavailable Allergies No Known Allergies Problems Problem Type Condition Code Onset Dates Condition Status Problem Back pain M54.9 Active Problem Anxiety F41.9 Active Problem Accelerated hypertension I10 Active Problem Impotence of organic origin 607.84 Active Problem Coronary atherosclerosis of unspecified type of vessel, [place] or graft 414.00 Active Problem Unspecified essential hypertension 401.9 Active Medications No Known Medications Results No Known Results Summary Purpose [employer] Submission
--- OUTSIDE RECORDS SUMMARY | 2018-04-18 15:37 | XMS REPORT ---
Author Author NADIR NOEL Organization [employer] Address Unknown Phone Unavailable Care Team Providers Care Rope Cutter Name Role Phone NADIR NOEL CP Unavailable Allergies No Known Allergies Problems Problem Type Condition Code Onset Dates Condition Status Problem Accelerated hypertension I10 Active Problem Back pain M54.9 Active Problem Gout M10.9 Active Problem Unspecified essential hypertension 401.9 Active Problem Impotence of organic origin 607.84 Active Problem Anxiety F41.9 Active Problem Coronary atherosclerosis of unspecified type of vessel, [place] or graft 414.00 Active Medications Medication Code System Code Instructions Start Date End Date Status Dosage Alprazolam [facility] 05308845768 2 MG TAKE ONE TABLET BY MOUTH TWO TIMES A DAY IF NEEDED ANXIETY *MUST LAST 30 DAYS* Results No Known Results Summary Purpose [employer] Submission
--- OUTSIDE RECORDS SUMMARY | 2018-04-18 15:37 | XMS REPORT ---
Author Author NADIR NOEL [facility] [employer] Address Unknown Phone Unavailable Care Team Providers Care Fiction And Nonfiction Author Name Role Phone NADIR NOEL CP Unavailable Allergies No Known Allergies Problems Problem Type Condition Code Onset Dates Condition Status Problem Accelerated hypertension I10 Active Problem Back pain M54.9 Active Problem Gout M10.9 Active Problem Unspecified essential hypertension 401.9 Active Problem Impotence of organic origin 607.84 Active Problem Anxiety F41.9 Active Problem Coronary atherosclerosis of unspecified type of vessel, [place] or graft 414.00 Active Medications Medication Code System Code Instructions Start Date End Date Status Dosage OxyContin [facility] [address]-73 10 MG Orally every 12 hrs Sep 24, 2015 1 tablet Results No Known Results Summary Purpose [employer] Submission
--- OUTSIDE RECORDS SUMMARY | 2018-04-18 15:37 | XMS REPORT ---
Author Author NADIR NOEL Organization [employer] Address Unknown Phone Unavailable Care Team Providers Care Parking Meter Installer Name Role Phone NADIR NOEL CP Unavailable Allergies No Known Allergies Problems Problem Type Condition Code Onset Dates Condition Status Problem Anxiety F41.9 Active Problem Coronary atherosclerosis of unspecified type of vessel, [place] or graft 414.00 Active Problem Back pain M54.9 Active Problem Unspecified essential hypertension 401.9 Active Problem Impotence of organic origin 607.84 Active Medications Medication Code System Code Instructions Start Date End Date Status Dosage Oxycodone-Acetaminophen [facility] [address]-96 5-325 MG every 6 hrs December 07, 2014 1 tablet as needed Results No Known Results Summary Purpose [employer] Submission
--- OUTSIDE RECORDS SUMMARY | 2018-04-18 15:37 | XMS REPORT ---
Author NADIR Garcia [facility] [employer] Address Unknown Phone Unavailable Care Team Providers Care Instrument Technician Name Role Phone NADIR NOEL CP Unavailable Allergies, Adverse Reactions, Alerts Substance Reaction Event Type N.K.D.A. Info Not Available Non Drug Allergy Problems Problem Type Condition Code Onset Dates Condition Status Assessment Anxiety F41.9 Active Problem Anxiety F41.9 Active Problem Coronary atherosclerosis of unspecified type of vessel, [place] or graft 414.00 Active Problem Back pain M54.9 Active Assessment Encounter for immunization Z23 Active Assessment Back pain M54.9 Active Problem Unspecified essential hypertension 401.9 Active Problem Impotence of organic origin 607.84 Active Medications Medication Code System Code Instructions Start Date End Date Status Dosage Amlodipine Besylate-Valsartan [facility] 49983413478 10-320 MG TAKE ONE TABLET BY MOUTH ONE TIME DAILY Alprazolam [facility] 31930247573 2 MG TAKE ONE TABLET BY MOUTH TWO TIMES A DAY IF NEEDED ANXIETY *MUST LAST 30 DAYS* pantoprazole NDC 0 40 mg February 19, 2013 take 1 tablet (40 mg) by oral route once daily Temazepam [facility] 66733437988 30 MG TAKE ONE CAPSULE BY MOUTH ONE TIME DAILY NEEDED Clonidine HCl [facility] [address]-97 0.1 mg Sep 08, 2014 1 tablet by Oral route 1 time per day Potassium Chloride [facility] [address]-61 20 mEq Sep 08, 2014 take 1 tablet by Oral route with food 1 time per day Meclizine HCl [facility] [address]-78 25 MG Orally Once a day 1 tablet as needed Hydrochlorothiazide [facility] [address]-62 50 mg Sep 08, 2014 1 tablet by Oral route 1 time per day Oxycodone-Acetaminophen [facility] [address]-04 5-325 MG every 6 hrs December 07, 2014 1 tablet as needed hydralazine NDC 0 50 mg Oct 22, 2013 1 Tablet by Oral route 4 times per day Toprol XL [facility] [address]-40 200 mg Apr 21, 2014 take 1 tablet ( 200 mg) by oral route once daily Xanax [facility] [address]-17 2 mg 1 TAB orally 2 times a day December 02, 2014 1 tablet by Oral route 2 times per day PRN Must be seen for more refills-- Last fill verapamil NDC 0 40 mg Sep 08, 2014 1 capsule by Oral route 1 time per day atorvastatin NDC 0 40 mg Oct 19, 2014 take 1 tablet by Oral route at bedtime 1 time per day Claritin [facility] [address]-47 10 mg Aug 06, 2014 take 1 tablet (10 mg ) by oral route once daily Nitrostat [facility] [address]-18 0.4 mg 1 tab(s) sublingually every 5 minutes March 25, 2014 place 1 tablet by Sublingual route 5 mins PRN Cardura [facility] [address]-16 4 mg Oct 19, 2014 1 tablet by Oral route 2 times per day Gabapentin [facility] [address]-75 300 MG Orally Three times a day 1 capsule Imdur [facility] [address]-56 60 mg Jun 08, 2014 take one-half tablet ( 30 mg) by oral route once daily in the morning Doxazosin Mesylate [facility] 10459162743 4 MG TAKE ONE TABLET BY MOUTH TWO TIMES A DAY Exforge [facility] [address]-38 10-320 mg Jul 06, 2014 take 1 tablet by Oral route 1 time per day Levitra [facility] [address]-12 20 mg December 07, 2014 1 tablet by Oral route 1 time per day PRN Procedures Procedure Coding System Code Date SINGLE IMMUNIZATION ADMIN CPT-4 78594 Jun 29, 2015 COUNT INCLUDES THE [facility] VISIT ESTABLISHED PATIENT CPT-4 G0467 Jun 29, 2015 FLUARIX QUAD (3 & UP)-GSK-2014 CPT-4 05240 Jun 29, 2015 Office Visit, Est Pt., Level 2 CPT-4 82087 Jun 29, 2015 Vital Signs Date/Time: Jun 29, 2015 Temperature 98.0 F Weight 213 lbs Height 64 in BMI 36.56 Index Blood Pressure Diastolic 72 mmHg Blood Pressure Systolic 138 mmHg Cardiac Monitoring Heart Rate 78 bpm Results No Known Results Immunizations Vaccine Administration Date FLUARIX QUAD (3 & UP)-GSK-2014Jun 29, 2015 Summary Purpose [employer]ClinicalWorks Submission
--- OUTSIDE RECORDS SUMMARY | 2018-04-18 15:37 | XMS REPORT ---
Author NADIR Garcia [facility] [employer] Address Unknown Phone Unavailable Care Team Providers Care Rent Control Office Manager Name Role Phone NADIR NOEL CP Unavailable Allergies, Adverse Reactions, Alerts Substance Reaction Event Type N.K.D.A. Info Not Available Non Drug Allergy Problems Problem Type Condition Code Onset Dates Condition Status Assessment Gout M10.9 Active Problem Accelerated hypertension I10 Active Problem Back pain M54.9 Active Problem Gout M10.9 Active Problem Unspecified essential hypertension 401.9 Active Problem Impotence of organic origin 607.84 Active Problem Anxiety F41.9 Active Problem Coronary atherosclerosis of unspecified type of vessel, [place] or graft 414.00 Active Medications Medication Code System Code Instructions Start Date End Date Status Dosage OxyContin [facility] [address]-48 10 MG Orally every 12 hrs Sep 24, 2015 1 tablet Toprol XL [facility] [address]-08 200 mg Apr 21, 2014 take 1 tablet ( 200 mg) by oral route once daily Imdur [facility] 0 60 mg Once a day Jun 08, 2014 take one-half tablet ( 30 mg) by oral route once daily in the morning Clonidine HCl [facility] [address]-24 0.3 MG Orally every 7 days Sep 08, 2014 1 patch to skin Topamax [facility] [address]-10 50 MG Orally Twice a day 1 tablet Venlafaxine HCl ER [facility] 98054810817 150 MG TAKE ONE CAPSULE BY MOUTH ONE TIME DAILY WITH FOOD Alprazolam [facility] 40215954307 2 MG TAKE ONE TABLET BY MOUTH TWO TIMES A DAY IF NEEDED ANXIETY *MUST LAST 30 DAYS* Amiloride HCl [facility] [address]-06 5 MG Orally Once a day 1 tablet Viibryd [facility] [address]-13 40 MG Orally Once a day 1 tablet with food Atorvastatin Calcium [facility] 29257570219 40 MG TAKE ONE TABLET BY MOUTH DAILY AT BEDTIME Amlodipine Besylate-Valsartan [facility] 54001230188 10-320 MG TAKE ONE TABLET BY MOUTH ONE TIME DAILY Oxycodone HCl [facility] [address]-04 10 MG Orally every 12 hrs 1 tablet as needed Gabapentin [facility] [address]-99 300 MG Orally Once a day 1 capsule PredniSONE [facility] [address]-90 50 mg Orally Once a day, pc January 11, 2016 January 16, 2016 1 tablet Clonidine HCl [facility] [address]-66 0.3 MG/24HR Transdermal 1 patch to skin Spironolactone [facility] [address]-30 25 MG Orally Once a day 1.5 tablet Procedures Procedure Coding System Code Date Office Visit, Est Pt., Level 2 CPT-4 74976 January 11, 2016 [facility] VISIT ESTABLISHED PATIENT CPT-4 G0467 January 11, 2016 Vital Signs Date/Time: January 11, 2016 Temperature 98.6 F Weight 200.9 lbs Height 64 in BMI 34.48 Index Blood Pressure Diastolic 92 mmHg Blood Pressure Systolic 150 mmHg Cardiac Monitoring Heart Rate 80 bpm Results No Known Results Summary Purpose [employer]Works Submission
--- OUTSIDE RECORDS SUMMARY | 2018-04-18 15:37 | XMS REPORT ---
Author Author NADIR NOEL Organization [facility] Address [address] [place] [address] Care Team Providers Care Gunner'S Mate Name Role Phone NADIR NOEL Unavailable PROBLEMS Type Condition ICD9-CM Code MHR30-BC Code Onset Dates Condition Status SNOMED Code Problem Morbid obesity due to excess calories E66.01 Active 171853914 Problem Gout M10.9 Active 04577667 Problem Back pain M54.9 Active 806852991 Problem Accelerated hypertension I10 Active 10183824 Problem Anxiety F41.9 Active 92239081 ALLERGIES No Information SOCIAL HISTORY Never Assessed PLAN OF CARE VITAL SIGNS MEDICATIONS Medication Instructions Dosage Frequency Start Date End Date Duration Status OxyContin 10 mg Orally every 12 hrs 1 tablet 12h Nov, Dec, 28 days Active RESULTS No Results PROCEDURES [...] History Flu and hypertension at [facility] 10/2016
--- OUTSIDE RECORDS SUMMARY | 2018-04-18 15:38 | XMS REPORT ---
Author Author NADIR NOEL [facility] Address [address] [place] [address] Care Team Providers Care Business Intern Name Role Phone NADIR NOEL Unavailable PROBLEMS Type Condition ICD9-CM Code YLM90-IE Code Onset Dates Condition Status SNOMED Code Problem Gout M10.9 Active 17608591 Problem Accelerated hypertension I10 Active 30657720 Problem Back pain M54.9 Active 358686993 Problem Anxiety F41.9 Active 16719321 ALLERGIES Unknown Allergies SOCIAL HISTORY No smoking Hx information available PLAN OF CARE VITAL SIGNS MEDICATIONS Unknown Medications RESULTS No Results PROCEDURES No Known procedures IMMUNIZATIONS No Known Immunizations
--- OUTSIDE RECORDS SUMMARY | 2018-04-18 15:38 | XMS REPORT ---
Author Author NADIR NOEL [facility] [employer] Address Unknown Phone Unavailable Care Team Providers Care Drug Coordinator Name Role Phone NADIR NOEL CP Unavailable Allergies No Known Allergies Problems Problem Type Condition Code Onset Dates Condition Status Problem Accelerated hypertension I10 Active Problem Back pain M54.9 Active Problem Gout M10.9 Active Problem Unspecified essential hypertension 401.9 Active Problem Impotence of organic origin 607.84 Active Problem Anxiety F41.9 Active Problem Coronary atherosclerosis of unspecified type of vessel, [place] or graft 414.00 Active Medications Medication Code System Code Instructions Start Date End Date Status Dosage OxyContin [facility] [address]-42 10 MG Orally every 12 hrs Sep 24, 2015 1 tablet Results No Known Results Summary Purpose [employer] Submission
--- OUTSIDE RECORDS SUMMARY | 2018-04-18 15:38 | XMS REPORT ---
Author NADIR Garcia [facility] eClinicalWorks Address Unknown Phone Unavailable Care Team Providers Care Credit Portfolio Manager Name Role Phone NADIR NEOL CP Unavailable Allergies, Adverse Reactions, Alerts Substance Reaction Event Type N.K.D.A. Info Not Available Non Drug Allergy Problems Problem Type Condition Code Onset Dates Condition Status Assessment Accelerated hypertension I10 Active Problem Back pain M54.9 Active Problem Anxiety F41.9 Active Problem Accelerated hypertension I10 Active Problem Impotence of organic origin 607.84 Active Assessment Back pain M54.9 Active Problem Coronary atherosclerosis of unspecified type of vessel, [place] or graft 414.00 Active Problem Unspecified essential hypertension 401.9 Active Medications Medication Code System Code Instructions Start Date End Date Status Dosage Amiloride HCl [facility] [address]-65 5 MG Orally Once a day 1 tablet Oxycodone HCl [facility] [address]-93 10 MG Orally every 12 hrs 1 tablet as needed Clonidine HCl [facility] [address]-07 0.3 MG Orally every 7 days Sep 08, 2014 1 patch to skin Toprol XL [facility] [address]-12 200 mg Apr 21, 2014 take 1 tablet ( 200 mg) by oral route once daily Atorvastatin Calcium [facility] 02450795093 40 MG TAKE ONE TABLET BY MOUTH DAILY AT BEDTIME Viibryd [facility] [address]-04 40 MG Orally Once a day 1 tablet with food Topamax [facility] [address]-12 50 MG Orally Twice a day 1 tablet Imdur [facility] 0 60 mg Once a day Jun 08, 2014 take one-half tablet ( 30 mg) by oral route once daily in the morning Spironolactone [facility] [address]-05 25 MG Orally Once a day 1.5 tablet Clonidine HCl [facility] [address]-17 0.3 MG/24HR Transdermal 1 patch to skin Gabapentin [facility] [address]-41 300 MG Orally Once a day 1 capsule Alprazolam [facility] 37724363375 2 MG TAKE ONE TABLET BY MOUTH TWO TIMES A DAY IF NEEDED ANXIETY *MUST LAST 30 DAYS* OxyContin [facility] [address]-90 10 MG Orally every 12 hrs Sep 24, 2015 1 tablet Venlafaxine HCl ER [facility] 15273955097 150 MG TAKE ONE CAPSULE BY MOUTH ONE TIME DAILY WITH FOOD Procedures Procedure Coding System Code Date Office Visit, Est Pt., Level 2 CPT-4 41213 Oct 14, 2015 [facility] VISIT ESTABLISHED PATIENT CPT-4 G0467 Oct 14, 2015 Vital Signs Date/Time: Oct 14, 2015 Temperature 98.5 F Weight 211.7 lbs Height 64 in BMI 36.33 Index Blood Pressure Diastolic 100 mmHg Blood Pressure Systolic 140 mmHg Cardiac Monitoring Heart Rate 76 bpm Results No Known Results Summary Purpose eClinicalWorks Submission
--- OUTSIDE RECORDS SUMMARY | 2018-04-18 15:38 | XMS REPORT ---
Author Author NADIR NOEL Organization [facility] Address [address] [place] [address] Care Team Providers Care Chain Tender Name Role Phone NADIR NOEL Unavailable PROBLEMS Type Condition ICD9-CM Code [id number] Code Onset Dates Condition Status SNOMED Code Problem Anxiety F41.9 Active 16660110 Problem Back pain M54.9 Active 497090212 Problem Morbid (severe) obesity due to excess calories E66.01 Active 521895156 Problem Allergic state, initial encounter T78.40XA Active 306752916 Problem Gout M10.9 Active 55391434 Problem Accelerated hypertension I10 Active 85102003 Problem Reactive depression F32.9 Active 40936768 Problem Morbid obesity due to excess calories E66.01 Active 415841312 ALLERGIES No Information ENCOUNTERS Encounter Location Date Diagnosis [place] [address] [address]- [address]179 January, Back pain M54.9 [place] [address] [place] [id number] [place] [address] 25307- 6133 January, [place] [address] [id number] [place] [address] 96985- 1602 13 Dec, 2017 Anxiety F41.9 [place] [id number] 9[address]- 7325 10 Dec, 2017 Encounter for medication monitoring Z51.81 ; Back pain M54.9 ; Anxiety F41.9 ; Reactive depression F32.9 ; Morbid (severe) obesity due to excess calories E66.01 and Allergic state, initial encounter T78.40XA [facility] [address] [place] [id number] [place] [address] 87021- 4176 02 Dec, 2017 Back pain M54.9 [facility] [address] 37813- 3461 Nov, Anxiety F41.9 [facility] [id number] [place] [address] 17655- 8524 Sep, Back pain M54.9 and Anxiety F41.9 [facility] [id number] [place] [address] 21161- 3535 Sep, Anxiety F41.9 [facility] [address] 29339- 6816 Aug, Back pain M54.9 and Anxiety F41.9 [facility] [address] 01316- 7957 Aug, Back pain M54.9 and Anxiety F41.9 [facility] [id number] [place] [address] 17699- 0983 Jul, [facility] [address] 44885- 6859 Jul, Back pain M54.9 ; Encounter for immunization Z23 ; Anxiety F41.9 ; Reactive depression F32.9 and Morbid obesity due to excess calories E66.01 [facility] [id number] [place] [address] 95496- 9553 08 Jul, 2017 Back pain M54.9 and Anxiety F41.9 [facility] [id number] [place] [address] 85272- 7668 06 Jun, 2017 Back pain M54.9 and Anxiety F41.9 [facility] [id number] [place] [address] 20964- 9043 14 May, 2017 Anxiety F41.9 [facility] [id number] [place] [address] 92074- 6385 06 May, 2017 Back pain M54.9 [facility] [id number] [place] [address] 03658- 1983 16 Apr, 2017 Back pain M54.9 [facility] [id number] [place] [address] 68055- 9523 Apr, Anxiety F41.9 [facility] [id number] [place] [address] 77024- 7240 Mar, Back pain M54.9 [facility] [id number] [place] [address] 53314- 9931 Feb, Back pain M54.9 and Anxiety F41.9 [facility] [id number] [place] [address] 82057- 1835 January, Back pain M54.9 [facility] [id number] [place] [address] 60777- 3913 January, Acute prostatitis N41.0 [facility] [id number] [place] [address] 43029- 5082 January, Anxiety F41.9 and Back pain M54.9 [facility] [id number] [place] [address] 88441- 4304 Dec, Back pain M54.9 [facility] [id number] [place] [address] 95563- 1453 Nov, Back pain M54.9 [facility] [id number] [place] [address] 04431- 5074 Nov, [facility] [id number] [place] [address] 57998- 6126 Nov, Back pain M54.9 ; Anxiety F41.9 and Morbid obesity due to excess calories E66.01 [facility] [id number] [place] [address] 24522- 9024 07 Nov, 2016 Anxiety F41.9 [facility] [id number] [place] [address] 40899- 7822 Oct, Back pain M54.9 [facility] [id number] [place] [address] 44015- 1634 Oct, [facility] [id number] [place] [address] 03498- 2615 Oct, Anxiety F41.9 [facility] [id number] [place] [address] 47745- 6857 Sep, Back pain M54.9 [facility] [id number] [place] [address] 85094- 7266 Aug, Back pain M54.9 and Anxiety F41.9 [facility] [address] [id number] [place] [address] 22888- 9436 Aug, [facility] [id number] [place] [address] 84333- 3199 Aug, Back pain M54.9 [facility] [address] [place] [id number] [place] [address] 57525- 9119 Aug, Back pain M54.9 and Anxiety F41.9 [facility] [address] [id number] [place] [address] 88179- 1421 Aug, Back pain M54.9 [facility] [id number] [place] [address] 31636- 7104 Jul, [facility] [id number] [place] [address] 91532- 4667 Jun, [facility] [id number] [place] [address] 82587- 5106 May, [facility] [id number] [place] [address] 54656- 5712 Apr, [facility] [id number] [place] [address] 84770- 9617 Apr, Acute frontal sinusitis, recurrence not specified J01.10 and Exophthalmos H05.20 [facility] [id number] [place] [address] 93019- 9101 Apr, [facility] [id number] [place] [address] 17031- 8046 Mar, [facility] [id number] [place] [address] 49701- 7072 Mar, [facility] [id number] [place] [address] 89372 2549 Feb, Back pain M54.9 [facility] [address] [id number] [place] [address] 43551 2546 January, Gout M10.9 [facility] [id number] [place] [address] 92542 2544 January, Gout M10.9 [facility] [id number] [place] [address] 28095- 4854 Dec, Gout M10.9 [facility] [address] [id number] [place] [address] 32960- 5247 Dec, [facility] [id number] [place] [address] 78648- 4614 Dec, Anxiety F41.9 [facility] [address] [place] [id number] [place] [address] 42083- 3313 Nov, Back pain M54.9 [facility] [id number] [place] [address] 99963- 2134 Sep, Back pain M54.9 and Accelerated hypertension I10 [facility] [id number] [place] [address] 60332- 5195 Sep, Insomnia G47.00 [facility] [id number] [place] [address] 14974 2545 Sep, Back pain M54.9 [facility] [address] [id number] [place] [address] 62530 2549 Sep, [facility] [id number] [place] [address] 83762- 3661 Aug, [facility] [address] [place] [address] [address]- 4191 Aug, [facility] [id number] [place] [address] 17878- 5814 Jul, [facility] [id number] [place] [address] 07095- 1382 Jun, [facility] [id number] [place] [address] 26707- 4226 Jun, Encounter for immunization Z23 ; Back pain M54.9 and Anxiety F41.9 [facility] [id number] [place] [address] 98303- 9733 Jun, [facility] [id number] [place] [address] 98547- 4600 May, [facility] [id number] [place] [address] 81107- 5892 Apr, [facility] [id number] [place] [address] 51966- 4527 Mar, [facility] [id number] [place] [address] 55039- 8365 Feb, [facility] [id number] [place] [address] 48477- 1233 January, [facility] [address] [address]- 2471 January, [facility] [address] [address]- 5923 January, [facility] [address] [place] [id number] [address]- 2941 Dec, [facility] [id number] [place] [address] 08668- 9306 Dec, [facility] [place] [facility] [address] [place] [address]- 2147 Nov, [facility] [id number] [place] [address]- 3196 Nov, [facility] [place] [facility] [address] [id number] [place] [address]- 3291 Nov, [facility] [place] [facility] [address] [id number] [place] [address]- 4086 Nov, [facility] [place] [facility] [address] [id number] [place] [address]- 7607 Nov, [facility] [place] [facility] [address] [id number] [place] [address]- 1064 Nov, [facility] [place] [facility] [address] [id number] [place] [address]- 5083 Nov, [facility] [place] [facility] [address] [id number] [place] [address] 2549 Nov, [facility] [place] [facility] [address] [id number] [place] [address]- 4150 Nov, [facility] [place] [facility] [address] [id number] [place] [address]- 2601 Oct, 2014 [facility] [place] [facility] [address] [id number] [place] [address]- 1009 Oct, 2014 [facility] [place] [facility] [address] [facility] [id number] [place] [address]- 7660 16 Oct, 2014 [facility] [place] [facility] [address] [id number] [place] [address]- 3986 Oct, 2014 [facility] [place] [facility] [address] [id number] [place] [address]- 1346 Oct, 2014 [facility] [place] [facility] [address] [id number] [place] [address]- 6326 Oct, 2014 [facility] [place] [facility] [address] [facility] [id number] [place] [address]- 2546 Oct, [facility] [place] [facility] [address] [facility] [id number] [place] [address]- 4325 Sep, [facility] [place] [facility] [address] [id number] [place] [address]- 5191 Sep, [facility] [place] [facility] [address] [id number] [place] [address]- 7022 Sep, [facility] [place] [facility] [address] [id number] [place] [address]- 7305 Sep, [facility] [place] [facility] [address] [id number] [place] [address]- 3605 Aug, [facility] [place] [facility] [address] [id number] [place] [address]- 8486 Aug, [facility] [place] [facility] [address] [id number] [place] [address]- 4258 Aug, [facility] [place] [facility] [address] [id number] [place] [address]- 9559 Aug, [facility] [place] [facility] [address] [id number] [place] [address]- 2272 Aug, [facility] [place] [facility] [address] [id number] [place] [address]- 6068 Aug, [facility] [place] [facility] [address] [id number] [place] [address]- 2760 Jul, [facility] [place] [facility] [address] [id number] [place] [address]- 4620 Jul, [facility] [place] [facility] [address] [id number], [place] [address]- 6853 Jul, [facility] [place] [facility] [address] [id number] [place] [address]- 8404 Jul, [facility] [place] [facility] [address] [id number] [place] [address]- 6731 Jul, [facility] [place] [facility] [address] [id number] [place] [address]- 1226 Jun, [facility] [place] [facility] [address] [id number] [place] [address]- 7299 20 Jun, 2014 [facility] [place] [facility] [address] [id number] [place] [address]- 5876 20 Jun, 2014 [facility] [place] [facility] [address] [id number] [place] [address]- 2985 14 Jun, 2014 [facility] [place] [facility] [address] [id number] [place] [address]- 2496 14 Jun, 2014 [facility] [place] [facility] [address] [id number] [place] [address]- 9616 25 May, 2014 [facility] [place] [facility] [address] [id number] [place] [address]- 0141 25 May, 2014 [facility] [place] [facility] [address] [id number] [place] [address]- 4598 May, [facility] [place] [facility] [address] [id number] [place] [address]- 6456 May, [facility] [place] [facility] [address] [id number] [place] [address]- 2680 May, [facility] [place] [facility] [address] [id number] [place] [address]- 6313 May, [facility] [place] [facility] [address] [id number] [place] [address]- 5775 May, [facility] [place] [facility] [address] [id number] [place] [address]- 5689 May, [facility] [place] [facility] [address] [id number] [place] [address]- 6188 Apr, [facility] [place] [facility] [address] [id number] [place] [address]- 4177 Apr, [facility] [place] [facility] [address] [id number] [place] [address]- 3344 Mar, [facility] [place] [facility] [address] [id number] [place] [address]- 2492 Mar, [facility] [place] [facility] [address] [id number] [place] [address]- 4533 Feb, [facility] [place] [facility] [address] [id number] [place] [address]- 1929 Feb, [facility] [place] [facility] [address] [id number] [place] [address]- 4363 January, [facility] [place] [facility] [address] [id number] [place] [address]- 1526 January, [facility] [place] [facility] [address] [id number] [place] [address]- 4302 Dec, [facility] [place] [facility] [address] [id number] [place] [address]- 6880 Dec, [facility] [place] [facility] [address] [id number] [place] [address]- 9100 Dec, [facility] [place] [facility] [address] [id number] [place] [address]- 4627 Dec, [facility] [place] [facility] [address] [id number] [place] [address]- 9356 Nov, [facility] [place] [facility] [address] [id number] [place] [address]- 7440 Nov, [facility] [place] [facility] [address] [id number] [place] [address]- 2636 Oct, [facility] [place] [facility] [address] [id number] [place] [address]- 6827 Oct, [facility] [place] [facility] [address] [id number] [place] [address]- 0311 Oct, [facility] [place] [facility] [address] [id number] [place] [address]- 7792 Oct, [facility] [place] [facility] [address] [id number] [place] [address]- 8535 Oct, [facility] [place] [facility] [address] [id number], [place] [address]- 8878 Oct, [facility] [address] [id number] [place] [address]- 8326 Oct, [facility] [place] [facility] [address] [id number] [place] [address]- 3016 Oct, [facility] [address] [facility] [id number] [place] [address]- 2249 Sep, [facility] [place] [facility] [address] [id number] [place] [address]- 4298 Sep, [facility] [address] [id number] [place] [address]- 2928 Aug, [facility] [place] [facility] [address] [facility] [id number] [place] [address]- 7947 Aug, [facility] [address] [facility] [id number] [place] [address]- 6729 Aug, [facility] [place] [facility] [address] [facility] [id number] [place] [address]- 9848 Aug, [facility] [place] [facility] [address] [facility] [id number] [place] [address]- 9251 Aug, [facility] [address] [facility] [id number] [place] [address]- 9734 Aug, [facility] [place] [facility] [address] [facility] [id number] [place] [address]- 1058 Jul, [facility] [place] [facility] [address] [facility] [id number], [place] [address]- 2540 Jul, [facility] [place] [facility] [address] [facility] [id number], [place] [address]- 2215 Jul, [facility] [place] [facility] [address] [facility] [id number] [place] [address]- 0860 Jul, [facility] [address] [facility] [id number] [facility] [place] [id number] Jul, [facility] [place] [facility] [address] [id number] [place] [address]- 8121 Jul, [facility] [place] [facility] [address] [id number] [place] 3799 Jun, [facility] [place] [facility] [address] [id number] [place] [address]- 2073 Jun, [facility] [place] [facility] [address] [id number] [place] [address]- 3736 30 Jun, 2013 [facility] [place] [facility] [address] [id number] [place] [address]- 6915 Jun, [facility] [place] [facility] [address] [id number] [place] [address]- 9930 Jun, [facility] [place] [facility] [address] [id number] [place] [address]- 2133 Jun, [facility] [place] [facility] [address] [id number] [place] [address]- 2022 Jun, [facility] [place] [facility] [address] [id number] [place] [address]- 0684 Jun, [facility] [place] [facility] [address] [id number] [place] [address]- 5717 Jun, [facility] [place] [facility] [address] [id number] [place] [address]- 3188 20 May, 2012 [facility] [place] [facility] [address] [id number] [place] [address]- 8971 18 Sep, 2012 [facility] [place] [facility] [address] [id number] [place] [address]- 2544 10 Sep, 2012 [facility] [place] [facility] [address] [id number] [place] [address]- 2542 09 Sep, 2012 [facility] [place] [facility] [address] [id number] [place] [address]- 2543 05 Sep, 2012 [facility] [place] [facility] [address] [id number] [place] [address]- 6369 May, [facility] [place] [facility] [address] [id number] [place] [address]- 0242 Apr, [facility] [place] [facility] [address] [id number] [place] [address]- 6825 Apr, [facility] [place] [facility] [address] [id number] [place] [address]- 8377 Apr, [facility] [place] [facility] [address] [id number] [place] [address]- 4705 Apr, [facility] [place] [facility] [address] [id number] [place] [address]- 3541 Apr, [facility] [place] [facility] [address] [id number] [place] [address]- 1733 Apr, [facility] [place] [facility] [address] [id number] [place] [address] Apr, [facility] [place] [facility] [address] [id number] [place] [address] Apr, [facility] [place] [facility] [address] [id number] [place] [address] Mar, [facility] [place] [facility] [address] [id number] [place] [address] Mar, [facility] [place] [facility] [address] [id number] [place] [address] Mar, [facility] [place] [facility] [address] [id number], [place] [address] Mar, [facility] [place] [facility] [address] [id number] [place] [address] Mar, [facility] [place] [facility] [address] [id number] [place] [address] Mar, [facility] [place] [facility] [address] [id number] [place] [address] 15 Mar, 2013 [facility] [place] [facility] [address] [id number] [place] [address] 254 Mar, [facility] [address] [id number] [place] [address] Mar, [facility] [place] [facility] [address] [id number] [place] [address] Mar, [facility] [address] [id number] [place] [address] Feb, [facility] [place] [facility] [address] [id number] [place] [address] Feb, [facility] [address] [id number] [place] [address] Feb, [facility] [address] [id number] [place] [address] Feb, [facility] [address] [id number] [place] [address] Feb, [facility] [address] [id number] [place] [address] January, [facility] [place] [facility] [address] [id number] [place] [address] January, [facility] [address] [id number] [place] [address] January, [facility] [place] [facility] [address] [id number] [place] [address] January, [facility] [place] [facility] [address] [id number] [place] [address]- [address] Dec, [facility] [place] [facility] [address] [id number] [place] [address] Nov, [facility] [place] [facility] [address] [id number] [place] [address] Nov, [facility] [place] [facility] [address] [id number] [place] [address] Nov, [facility] [place] [facility] [address] [id number] [place] [address] 13 Nov, 2012 [facility] [place] [facility] [address] [id number] [place] [address]- [address] 08 Nov, 2012 [facility] [place] [facility] [address] [id number] [place] [address]- [address] 04 Nov, 2012 [facility] [place] [facility] [address] [id number] [place] [address]- [address] 25 Oct, 2012 [facility] [place] [facility] [address] [id number] [place] [address] 18 Oct, 2012 [facility] [place] [facility] [address] [id number] [place] [address] Oct, [facility] [address] [id number] [place] [address] Oct, [facility] [place] [facility] [address] [id number] [place] [address] Sep, [facility] [place] [facility] [address] [id number] [place] [address] Sep, [facility] [place] [facility] [address] [id number] [place] [address] Sep, [facility] [place] [facility] [address] [id number], [place] [address] Sep, [facility] [place] [facility] [address] [id number], [place] [address] Sep, [facility] [place] [facility] [address] [id number] [place] [address] Sep, [facility] [place] [facility] [address] [id number] [place] [address]- [address] Sep, [facility] [place] [facility] [address] [id number], [place] [address] 14 Sep, 2012 [facility] [place] [facility] [address] [id number], [place] [address] 18 Aug, 2012 [facility] [address] [id number] [place] [address]- [address] Aug, [facility] [place] [facility] [address] [id number] [place] [address]- 90[address] Aug, [facility] [place] [facility] [address] [id number] [place] [address]- [address] Aug, [facility] [place] [facility] [address] [id number] [place] [address]- 1009 Aug, [facility] [address] [id number] [place] [address]- [address] Aug, [facility] [place] [facility] [address] [id number] [place] [address]- [address] Aug, [facility] [address] [id number] [place] [address]- [address] Aug, [facility] [place] [facility] [address] [id number] [place] [address]- 9835 Aug, [facility] [place] [facility] [address] [id number] [place] [address]- [address] Aug, [facility] [place] [facility] [address] [facility] [id number] [place] [address]- [address] Aug, [facility] [place] [facility] [address] [id number] [place] [address]- [address] Aug, [facility] [place] [facility] [address] [id number], [place] [address] Aug, [facility] [place] [facility] [address] [id number] [place] [address]- 1574 Aug, [facility] [place] [facility] [address] [facility] [id number] [place] [address]- [address] Aug, [facility] [place] [facility] [address] [facility] [id number] [place] [address]- 84[address] Aug, [facility] [place] [facility] [address] [id number] [place] [address]- [address] 14 Jul, 2012 [facility] [place] [facility] [address] [id number] [place] [address] 14 Jul, 2012 [facility] [place] [facility] [address] [id number] [place] [address] 13 Jul, 2012 [facility] [place] [facility] [address] [id number] [place] [address] 13 Jul, 2012 [facility] [place] [facility] [address] [id number] [place] [address] 20 May, 2012 [facility] [place] [facility] [address] [id number] [place] [address] 05 May, 2012 [facility] [place] [facility] [address] [id number] [place] [address] 15 Apr, 2012 [facility] [place] [facility] [address] [id number] [place] [address] 15 Apr, 2012 [facility] [place] [facility] [address] [id number] [place] [address] Apr, [facility] [place] [facility] [address] [id number] [place] [address] Apr, [facility] [place] [facility] [address] [id number] [place] [address] Apr, [facility] [place] [facility] [address] [id number] [place] [address] 24 Mar, 2012 [facility] [place] [facility] [address] [id number] [place] [address] Mar, [facility] [place] [facility] [address] [id number] [place] [address] Mar, [facility] [place] [facility] [address] [id number] [place] [address] Feb, [facility] [place] [facility] [address] [id number] [place] [address] Feb, [facility] [place] [facility] [address] [id number] [place] [address] Feb, [facility] [place] [facility] [address] [id number] [place] [address] January, [facility] [place] [facility] [address] [id number] [place] [address] January, [facility] [place] [facility] [address] [id number] [place] [address] Dec, [facility] [place] [facility] [address] [id number] [place] [address] Dec, [facility] [place] [facility] [address] [id number] [place] [address] Dec, [facility] [place] [facility] [address] [id number] [place] [address] Dec, [facility] [place] [facility] [address] [id number] [place] [address] Nov, [facility] [place] [facility] [address] [id number] [place] [address] Nov, [facility] [place] [facility] [address] [id number] [place] [address] Nov, [facility] [place] [facility] [address] [id number] [place] [address] Oct, [facility] [place] [facility] [address] [id number] [place] [address] Oct, [facility] [place] [facility] [address] [id number] [place] [address] Oct, [facility] [place] [facility] [address] [id number] [place] [address] Sep, [facility] [place] [facility] [address] [id number] [place] [address] Sep, [facility] [place] [facility] [address] [id number] [place] [address] 08 Aug, 2011 [facility] [address] [id number] [place] [address] Aug, [facility] [place] [facility] [address] [id number] [place] [address] Aug, [facility] [address] [id number] [place] [address] Jul, [facility] [address] [id number] [place] [address] Jul, [facility] [id number] [place] [address], [place] [address] Jun, [facility] [address] [id number] [place] [address] Jun, [facility] [address] [id number] [place] [address] Aug, [facility] [address] [id number] [place] [address] Aug, [facility] [address] [facility] [id number] [place] [address] Aug, [facility] [address] [facility] [id number] [place] [address] January, [facility] [address] [id number] [place] [address] Sep, [facility] [address] [id number] [place] [address] Jul, [facility] [place] [facility] [address] [id number] [place] [address] Jul, [facility] [place] [facility] [address] [id number] [place] [address] Jul, [facility] [place] [facility] [address] [id number] [place] [address] Jun, [facility] [address] [facility] [id number], [place] [address] Jun, [facility] [address] [facility] [id number], [place] [address] Jun, [facility] [address] [facility] [id number], [place] [address] Jun, [facility] [address] [facility] [id number], [place] [address] May, IMMUNIZATIONS No Known Immunizations SOCIAL HISTORY Never Assessed REASON FOR VISIT Oxycontin and Xanax- 06/28 PLAN OF CARE VITAL SIGNS MEDICATIONS Medication Instructions Dosage Frequency Start Date End Date Duration Status Alprazolam 2 MG Orally 2 times a day 1 tablet 12h 28 days Active OxyContin 10 mg Orally every 12 hrs 1 tablet 12h 12 Jun, 2017 28 days Active RESULTS No Results [...] 12/2015 Hospitalization History Flu and hypertension at [facility] 10/2016
--- OUTSIDE RECORDS SUMMARY | 2018-04-18 15:38 | XMS REPORT ---
Author Author NADIR NOEL [facility] eClinicalWorks Address Unknown Phone Unavailable Care Team Providers Care [employer] Crew Boss Name Role Phone NADIR NOEL CP Unavailable Allergies No Known Allergies Problems Problem Type Condition Code Onset Dates Condition Status Problem Anxiety F41.9 Active Problem Coronary atherosclerosis of unspecified type of vessel, [place] or graft 414.00 Active Problem Back pain M54.9 Active Problem Unspecified essential hypertension 401.9 Active Problem Impotence of organic origin 607.84 Active Medications No Known Medications Results No Known Results Summary Purpose eClinicalWorks Submission
--- OUTSIDE RECORDS SUMMARY | 2018-04-18 15:38 | XMS REPORT ---
Author Author NADIR NOEL [facility] Address [address] [place] [address] Care Team Providers Care Interactive Media Marketing Strategist Name Role Phone NADIR NOEL Unavailable PROBLEMS Type Condition ICD9-CM Code [id number] Code Onset Dates Condition Status SNOMED Code Problem Morbid obesity due to excess calories E66.01 Active 563276355 Problem Gout M10.9 Active 82291020 Problem Anxiety F41.9 Active 98242902 Problem Accelerated hypertension I10 Active 49170219 Problem Back pain M54.9 Active 695581412 ALLERGIES Unknown Allergies SOCIAL HISTORY No smoking Hx information available PLAN OF CARE VITAL SIGNS MEDICATIONS Medication Instructions Dosage Frequency Start Date End Date Duration Status OxyContin 10 MG Orally every 12 hrs 1 tablet 12h 13 Aug, 2016 Active Alprazolam 2 MG TAKE ONE TABLET BY MOUTH TWO TIMES A DAY IF NEEDED FOR ANXIETY *MUST LAST 30 DAYS* 30 Active RESULTS No Results PROCEDURES No Known procedures IMMUNIZATIONS No Known Immunizations
--- OUTSIDE RECORDS SUMMARY | 2018-04-18 15:38 | XMS REPORT ---
Author Author NADIR NOEL Organization eClinical[employer] Address Unknown Phone Unavailable Care Team Providers Care Risk And Compliance Analytics Director Name Role Phone NADIR NOEL CP Unavailable Allergies No Known Allergies Problems Problem Type Condition Code Onset Dates Condition Status Problem Anxiety F41.9 Active Problem Coronary atherosclerosis of unspecified type of vessel, [place] or graft 414.00 Active Problem Back pain M54.9 Active Problem Unspecified essential hypertension 401.9 Active Problem Impotence of organic origin 607.84 Active Medications Medication Code System Code Instructions Start Date End Date Status Dosage Oxycodone-Acetaminophen [facility] [address]-03 5-325 MG every 6 hrs December 07, 2014 1 tablet as needed Results No Known Results Summary Purpose eClinicalWorks Submission
--- OUTSIDE RECORDS SUMMARY | 2018-04-18 15:38 | XMS REPORT ---
Author Author NADIR NOEL [facility] eClinicalWorks Address Unknown Phone Unavailable Care Team Providers Care Cold Header Operator Name Role Phone NADIR NOEL CP Unavailable Allergies No Known Allergies Problems Problem Type Condition Code Onset Dates Condition Status Problem Anxiety F41.9 Active Problem Coronary atherosclerosis of unspecified type of vessel, [place] or graft 414.00 Active Problem Back pain M54.9 Active Problem Unspecified essential hypertension 401.9 Active Problem Impotence of organic origin 607.84 Active Medications No Known Medications Results No Known Results Summary Purpose eClinicalWorks Submission
--- OUTSIDE RECORDS SUMMARY | 2018-04-18 15:38 | XMS REPORT ---
Author Author NADIR NOEL Organization [employer] Address Unknown Phone Unavailable Care Team Providers Care Special Effects Makeup Artist Name Role Phone NADIR NOEL CP Unavailable Allergies No Known Allergies Problems Problem Type Condition Code Onset Dates Condition Status Problem Anxiety F41.9 Active Problem Coronary atherosclerosis of unspecified type of vessel, [place] or graft 414.00 Active Problem Back pain M54.9 Active Assessment Insomnia G47.00 Active Problem Unspecified essential hypertension 401.9 Active Problem Impotence of organic origin 607.84 Active Medications Medication Code System Code Instructions Start Date End Date Status Dosage Temazepam [facility] [address]-82 15 mg Orally Once a day TAKE 2 CAPSULE , as NEEDED Results No Known Results Summary Purpose eClinicalWorks Submission
--- OUTSIDE RECORDS SUMMARY | 2018-04-18 15:38 | XMS REPORT ---
Author Author NADIR NOEL [facility] Address [address] [place] [address] Care Team Providers Care Degreasing Solution Reclaimer Name Role Phone NADIR NOEL Unavailable PROBLEMS Type Condition ICD9-CM Code ACS97-ES Code Onset Dates Condition Status SNOMED Code Problem Gout M10.9 Active 83228869 Problem Accelerated hypertension I10 Active 86944953 Assessment Back pain M54.9 Aug, Active 400523634 Problem Back pain M54.9 Active 427967919 Problem Anxiety F41.9 Active 30134971 ALLERGIES Unknown Allergies SOCIAL HISTORY No smoking Hx information available PLAN OF CARE VITAL SIGNS MEDICATIONS Medication Instructions Dosage Frequency Start Date End Date Duration Status OxyContin 10 MG Orally every 12 hrs 1 tablet 12h 13 Aug, 2016 Active RESULTS No Results PROCEDURES No Known procedures IMMUNIZATIONS No Known Immunizations
--- OUTSIDE RECORDS SUMMARY | 2018-04-18 15:39 | XMS REPORT ---
Author Author NADIR NOEL Organization eClinical[employer] Address Unknown Phone Unavailable Care Team Providers Care Small Battery Plate Assembler Name Role Phone NADIR NOEL CP Unavailable Allergies No Known Allergies Problems Problem Type Condition Code Onset Dates Condition Status Problem Back pain M54.9 Active Problem Anxiety F41.9 Active Problem Accelerated hypertension I10 Active Problem Impotence of organic origin 607.84 Active Assessment Anxiety F41.9 Active Problem Coronary atherosclerosis of unspecified type of vessel, [place] or graft 414.00 Active Problem Unspecified essential hypertension 401.9 Active Medications Medication Code System Code Instructions Start Date End Date Status Dosage Alprazolam [facility] [id number] 2 MG TAKE ONE TABLET BY MOUTH TWO TIMES A DAY IF NEEDED ANXIETY *MUST LAST 30 DAYS* Results No Known Results Summary Purpose eClinicalWorks Submission
--- OUTSIDE RECORDS SUMMARY | 2018-04-18 15:39 | XMS REPORT ---
Author Author NADIR NOEL Organization [facility] Address [address] [place] [address] Care Team Providers Care Double Head Machine Operator Name Role Phone NADIR NOEL Unavailable PROBLEMS Type Condition ICD9-CM Code FFD89-AA Code Onset Dates Condition Status SNOMED Code Problem Morbid obesity due to excess calories E66.01 Active 476172547 Problem Gout M10.9 Active 41865992 Problem Back pain M54.9 Active 546459533 Problem Accelerated hypertension I10 Active 27475274 Problem Anxiety F41.9 Active 83396975 ALLERGIES No Information SOCIAL HISTORY Never Assessed PLAN OF CARE VITAL SIGNS MEDICATIONS Medication Instructions Dosage Frequency Start Date End Date Duration Status Alprazolam 2 MG Orally 2 times a day 1 tablet 12h Active RESULTS No Results PROCEDURES No Known [...] 12/2015 Hospitalization History Flu and hypertension at [facility] 10/2016
--- OUTSIDE RECORDS SUMMARY | 2018-04-18 15:39 | XMS REPORT ---
Author Author NADIR NOEL [facility] Address [address] [place] [address] Care Team Providers Care Golf Club Facer Name Role Phone NADIR NOEL Unavailable PROBLEMS Type Condition ICD9-CM Code KOO74-MV Code Onset Dates Condition Status SNOMED Code Problem Morbid obesity due to excess calories E66.01 Active 947217451 Problem Gout M10.9 Active 61660525 Problem Back pain M54.9 Active 817673454 Problem Accelerated hypertension I10 Active 52455064 Problem Anxiety F41.9 Active 32941221 ALLERGIES No Known Allergies SOCIAL HISTORY Never Assessed PLAN OF CARE Activity Details Follow Up prn Reason: VITAL SIGNS Height 64 in 2017-02-05 Weight 215.2 lbs 2017-02-05 Temperature 98.3 degrees Fahrenheit 2017-02-05 Heart Rate 76 bpm 2017-02-05 Respiratory Rate 18 2017-02-05 BMI 36.93 kg/m2 2017-02-05 Blood pressure systolic 184 mmHg 2017-02-05 Blood pressure diastolic 106 mmHg 2017-02-05 MEDICATIONS Medication Instructions Dosage Frequency Start Date End Date Duration Status Toprol XL 200 mg take 1 tablet (200 mg) by oral route once daily Apr Active Amiloride HCl 5 MG Orally Once a day 1 tablet 24h Active Gabapentin 300 MG Orally Once a day 1 capsule 24h Active Imdur 60 mg take one-half tablet (30 mg) by oral route once daily in the morning 24h May, Active Topamax 50 MG Orally Twice a day 1 tablet 12h Active Venlafaxine HCl ER 150 MG TAKE ONE CAPSULE BY MOUTH ONE TIME DAILY WITH FOOD 30 Active Cipro 500 mg Orally Twice a day 1 tablet 12h January, Feb, 10 day(s) Active Fluticasone Propionate 50 MCG/ACT Nasally Once a day 2 spray in each nostril 24h Apr, Active Atorvastatin Calcium 40 MG TAKE ONE TABLET BY MOUTH DAILY AT BEDTIME 30 Active Viibryd 40 MG Orally Once a day 1 tablet with food 24h Active Alprazolam 2 MG Orally 2 times a day 1 tablet 12h 28 days Active Clonidine HCl 0.3 MG/24HR 1 patch to skin Active Doxazosin Mesylate 1 MG Orally Once a day 1 tablet 24h Active OxyContin 10 mg Orally every 12 hrs 1 tablet 12h 11 Jan, 2017 28 days Active RESULTS No Results PROCEDURES Procedure Date Ordered Result Body Site [facility] VISIT ESTABLISHED PATIENT February 05, 2017 IMMUNIZATIONS No Known Immunizations MEDICAL (GENERAL) HISTORY [...] 12/2015 Hospitalization History Flu and hypertension at [facility] 10/2016
--- OUTSIDE RECORDS SUMMARY | 2018-04-18 15:39 | XMS REPORT ---
Author Author NADIR NOEL Organization eClinicalWorks Address Unknown Phone Unavailable Care Team Providers Care Carbon Coating Machine Operator Name Role Phone NADIR NOEL CP Unavailable Allergies No Known Allergies Problems Problem Type Condition Code Onset Dates Condition Status Problem Accelerated hypertension I10 Active Problem Back pain M54.9 Active Problem Gout M10.9 Active Problem Unspecified essential hypertension 401.9 Active Problem Impotence of organic origin 607.84 Active Problem Anxiety F41.9 Active Problem Coronary atherosclerosis of unspecified type of vessel, [place] or graft 414.00 Active Medications No Known Medications Results No Known Results Summary Purpose eClinicalWorks Submission
--- OUTSIDE RECORDS SUMMARY | 2018-04-18 15:39 | XMS REPORT ---
Author Author NADIR NOEL [facility] eClinicalWorks Address Unknown Phone Unavailable Care Team Providers Care Cook Helper Meat Name Role Phone NADIR NOEL CP Unavailable Allergies No Known Allergies Problems Problem Type Condition Code Onset Dates Condition Status Problem Accelerated hypertension I10 Active Problem Back pain M54.9 Active Problem Gout M10.9 Active Problem Unspecified essential hypertension 401.9 Active Problem Impotence of organic origin 607.84 Active Problem Anxiety F41.9 Active Problem Coronary atherosclerosis of unspecified type of vessel, [place] or graft 414.00 Active Medications Medication Code System Code Instructions Start Date End Date Status Dosage OxyContin [facility] [address]-16 10 MG Orally every 12 hrs Jul 24, 2016 1 tablet Results No Known Results Summary Purpose eClinicalWorks Submission
--- OUTSIDE RECORDS SUMMARY | 2018-04-18 15:39 | XMS REPORT ---
Author Author NADIR NOEL [facility] Address [address] [place] [address] Care Team Providers Care Motion Picture Narrator Name Role Phone NADIR NOEL Unavailable PROBLEMS Type Condition ICD9-CM Code ICI98-TE Code Onset Dates Condition Status SNOMED Code Problem Gout M10.9 Active 58211421 Problem Accelerated hypertension I10 Active 22730755 Assessment Back pain M54.9 Aug, Active 696431707 Problem Back pain M54.9 Active 444990791 Problem Anxiety F41.9 Active 56428547 ALLERGIES Substance Reaction Event Type Date Status N.K.D.A. Unknown Non Drug Allergy Aug, Unknown SOCIAL HISTORY No smoking Hx information available PLAN OF CARE VITAL SIGNS Height 64 in 2016-08-25 Weight 218.3 lbs 2016-08-25 Heart Rate 72 bpm 2016-08-25 Respiratory Rate 20 2016-08-25 BMI 37.47 kg/m2 2016-08-25 Blood pressure systolic 184 mmHg 2016-08-25 Blood pressure diastolic 116 mmHg 2016-08-25 MEDICATIONS Medication Instructions Dosage Frequency Start Date End Date Duration Status Venlafaxine HCl ER 150 MG TAKE ONE CAPSULE BY MOUTH ONE TIME DAILY WITH FOOD 30 Active Clonidine HCl 0.3 MG/24HR 1 patch to skin Active Alprazolam 2 MG TAKE ONE TABLET BY MOUTH TWO TIMES A DAY IF NEEDED FOR ANXIETY *MUST LAST 30 DAYS* 30 Active Fluticasone Propionate 50 MCG/ACT Nasally Once a day 2 spray in each nostril 24h Apr, Active Gabapentin 300 MG Orally Once a day 1 capsule 24h Active Amiloride HCl 5 MG Orally Once a day 1 tablet 24h Active Colchicine 0.6 MG Orally, 2 times a day for first 2 weeks, then once a day twice a day 1 capsule 12h Active HydrALAZINE HCl 10 mg Orally 3 times a day 1 tablet 8h Active Imdur 60 mg take one-half tablet (30 mg) by oral route once daily in the morning 24h May, Active Toprol XL 200 mg take 1 tablet (200 mg) by oral route once daily Apr Active OxyContin 10 MG Orally every 12 hrs 1 tablet 12h Aug, Active Viibryd 40 MG Orally Once a day 1 tablet with food 24h Active Doxazosin Mesylate 1 MG Orally Once a day 1 tablet 24h Active Claritin 10 mg take 1 tablet (10 mg) by oral route once daily Jul, Active Topamax 50 MG Orally Twice a day 1 tablet 12h Active Nitrostat 0.[address] 1 tablet by Sublingual route 5 mins PRN Mar, Active Atorvastatin Calcium 40 MG TAKE ONE TABLET BY MOUTH DAILY AT BEDTIME 30 Active RESULTS No Results PROCEDURES Procedure Date Ordered Related Diagnosis Body Site [facility] VISIT ESTABLISHED PATIENT Aug 25, 2016 Office Visit, Est Pt., Level 2 Aug 25, 2016 IMMUNIZATIONS No Known Immunizations
--- OUTSIDE RECORDS SUMMARY | 2018-04-18 15:39 | XMS REPORT ---
Author Author NADIR NOEL Organization [facility] Address [address] [place] [address] Care Team Providers Care Hat And Cap Sewer Name Role Phone NADIR NOEL Unavailable PROBLEMS Type Condition ICD9-CM Code IBU38-EY Code Onset Dates Condition Status SNOMED Code Problem Morbid obesity due to excess calories E66.01 Active 967434661 Problem Gout M10.9 Active 72183994 Problem Back pain M54.9 Active 655867722 Problem Accelerated hypertension I10 Active 44400925 Problem Anxiety F41.9 Active 50913841 ALLERGIES No Information SOCIAL HISTORY Never Assessed [...] History Flu and hypertension at [facility] 10/2016
--- OUTSIDE RECORDS SUMMARY | 2018-04-18 15:39 | XMS REPORT ---
Author Author NADIR NOEL Organization eClinicalWorks Address Unknown Phone Unavailable Care Team Providers Care Assembler Seat Name Role Phone NADIR NOEL CP Unavailable Allergies No Known Allergies Problems Problem Type Condition Code Onset Dates Condition Status Problem Other specified urticaria 708.8 Active Problem Major depressive disorder, recurrent episode, severe, without mention of psychotic behavior 296.33 Active Problem Generalized anxiety disorder 300.02 Active Problem Coronary atherosclerosis of unspecified type of vessel, [place] or graft 414.00 Active Problem Diabetes mellitus without mention of complication, type II or unspecified type, not stated as uncontrolled 250.00 Active Problem Other and unspecified hyperlipidemia 272.4 Active Problem Obesity, unspecified 278.00 Active Problem Unspecified essential hypertension 401.9 Active Problem Chest pain, unspecified 786.50 Active Problem Nonspecific abnormal electrocardiogram (ECG) (EKG) 794.31 Active Problem Impotence of organic origin 607.84 Active Problem Rash and other nonspecific skin eruption 782.1 Active Problem Urinary hesitancy 788.64 Active Problem Other abnormal blood chemistry 790.6 Active Problem Muscle weakness (generalized) 728.87 Active Medications No Known Medications Results No Known Results Summary Purpose eClinicalWorks Submission
--- OUTSIDE RECORDS SUMMARY | 2018-04-18 15:39 | XMS REPORT ---
Author Author NADIR NOEL [facility] Address [address] [place] [address] Care Team Providers Care Acid Remover Name Role Phone NADIR NOEL Unavailable PROBLEMS Type Condition ICD9-CM Code LJR97-FU Code Onset Dates Condition Status SNOMED Code Problem Morbid obesity due to excess calories E66.01 Active 204017707 Problem Gout M10.9 Active 84102617 Problem Back pain M54.9 Active 245019585 Problem Accelerated hypertension I10 Active 45153354 Problem Anxiety F41.9 Active 46857883 ALLERGIES No Information SOCIAL HISTORY Never Assessed PLAN OF CARE VITAL SIGNS MEDICATIONS Unknown [...] 12/2015 Hospitalization History Flu and hypertension at [facility] 10/2016
--- OUTSIDE RECORDS SUMMARY | 2018-04-18 15:39 | XMS REPORT ---
Author Author NADIR NOEL [facility] Address [address] [place] [address] Care Team Providers Care Tow Driver Name Role Phone NADIR NOEL Unavailable PROBLEMS Type Condition ICD9-CM Code UVY41-WO Code Onset Dates Condition Status SNOMED Code Problem Morbid obesity due to excess calories E66.01 Active 987902461 Problem Gout M10.9 Active 84447877 Problem Back pain M54.9 Active 275387986 Problem Accelerated hypertension I10 Active 81292549 Problem Anxiety F41.9 Active 61541772 ALLERGIES No Information SOCIAL HISTORY Never Assessed [...] Hospitalization History Flu and hypertension at [facility] 10/2016
--- OUTSIDE RECORDS SUMMARY | 2018-04-18 15:40 | XMS REPORT ---
Author Author NADIR NOEL [facility] Address [address] [place] [address] Care Team Providers Care [employer] Name Role Phone NADIR NOEL Unavailable PROBLEMS Type Condition ICD9-CM Code [id number] Code Onset Dates Condition Status SNOMED Code Problem Morbid obesity due to excess calories E66.01 Active 164339880 Problem Gout M10.9 Active 39118432 Problem Back pain M54.9 Active 039865019 Problem Accelerated hypertension I10 Active 62511297 Problem Anxiety F41.9 Active 14571096 ALLERGIES No Known Allergies SOCIAL HISTORY Never Assessed PLAN OF CARE Activity Details Follow Up 3 Months Reason: VITAL SIGNS Height 64 in 2016-11-24 Weight 215.9 lbs 2016-11-24 Temperature 98.3 degrees Fahrenheit 2016-11-24 Heart Rate 76 bpm 2016-11-24 Respiratory Rate 20 2016-11-24 BMI 37.06 kg/m2 2016-11-24 Blood pressure systolic 175 mmHg 2016-11-24 Blood pressure diastolic 109 mmHg 2016-11-24 MEDICATIONS Medication Instructions Dosage Frequency Start Date End Date Duration Status Gabapentin 300 MG Orally Once a day 1 capsule 24h Active HydrALAZINE HCl 10 mg Orally 3 times a day 1 tablet 8h Active Colchicine 0.6 MG Orally, 2 times a day for first 2 weeks, then once a day twice a day 1 capsule 12h Active Viibryd 40 MG Orally Once a day 1 tablet with food 24h Active Clonidine HCl 0.3 MG/24HR 1 patch to skin Active Doxazosin Mesylate 1 MG Orally Once a day 1 tablet 24h Active Orlistat 60 mg Orally Three times a day 1 capsule with meals 8h Nov, Mar, 30 day(s) Active Amiloride HCl 5 MG Orally Once a day 1 tablet 24h Active Fluticasone Propionate 50 MCG/ACT Nasally Once a day 2 spray in each nostril 24h Apr, Active Venlafaxine HCl ER 150 MG TAKE ONE CAPSULE BY MOUTH ONE TIME DAILY WITH FOOD 30 Active Alprazolam 2 MG Orally 2 times a day 1 tablet 12h 30 days Active Topamax 50 MG Orally Twice a day 1 tablet 12h Active Imdur 60 mg take one-half tablet (30 mg) by oral route once daily in the morning 24h 22 May, 2014 Active OxyContin 10 MG Orally every 12 hrs 1 tablet 12h 10 Nov, 2016 Active Toprol XL 200 mg take 1 tablet (200 mg) by oral route once daily Apr Active Atorvastatin Calcium 40 MG TAKE ONE TABLET BY MOUTH DAILY AT BEDTIME 30 Active RESULTS Name Result Date Reference Range AMERITOX 2016-11-24 PROCEDURES Procedure Date Ordered Result Body Site No Charge November 24, 2016 PENDING SALE TO [facility] VISIT ESTABLISHED PATIENT November 24, 2016 IMMUNIZATIONS No Known Immunizations MEDICAL (GENERAL) HISTORY [...] 12/2015 Hospitalization History Flu and hypertension at [facility] 10/2016
--- OUTSIDE RECORDS SUMMARY | 2018-04-18 15:40 | XMS REPORT ---
Author Author WARREN BROOKS [facility] Address [address] [place] [address] Care Team Providers Care Sales Marketing Director Name Role Phone BROOKSWARREN Unavailable PROBLEMS Type Condition ICD9-CM Code KKR06-KE Code Onset Dates Condition Status SNOMED Code Problem Anxiety F41.9 Active 97936578 Problem Back pain M54.9 Active 789170660 Problem Morbid (severe) obesity due to excess calories E66.01 Active 035725038 Problem Allergic state, initial encounter T78.40XA Active 433883682 Problem Gout M10.9 Active 47182142 Problem Accelerated hypertension I10 Active 15749810 Problem Reactive depression F32.9 Active 83396736 Problem Morbid obesity due to excess calories E66.01 Active 594900239 ALLERGIES No Information ENCOUNTERS Encounter Location Date Diagnosis [place] [id number] [place] [address] 35405- 8324 13 Dec, 2017 Anxiety F41.9 [place] [address] [place] [id number] [place] [address] 86116- 8018 10 Dec, 2017 Encounter for medication monitoring Z51.81 ; Back pain M54.9 ; Anxiety F41.9 ; Reactive depression F32.9 ; Morbid (severe) obesity due to excess calories E66.01 and Allergic state, initial encounter T78.40XA [facility] [id number] [place] [address] 67313- 5238 Dec, Back pain M54.9 [facility] [address] [place] [id number] [place] [address] 25001- 7005 Nov, Anxiety F41.9 [place] [address] [place] [id number] [place] [address] 32421- 6335 Sep, Back pain M54.9 and Anxiety F41.9 [place] [address] [place] [id number] [place] [address] 88319- 3680 Sep, Anxiety F41.9 [facility] [address] 27182- 3845 Aug, Back pain M54.9 and Anxiety F41.9 [facility] [address] 21077- 7830 Aug, Back pain M54.9 and Anxiety F41.9 [facility] [address] 51885- 1077 Jul, [facility] [address] 14424- 1523 Jul, Encounter for immunization Z23 ; Back pain M54.9 ; Anxiety F41.9 ; Reactive depression F32.9 and Morbid obesity due to excess calories E66.01 [facility] [address] 95083- 6124 Jul, Back pain M54.9 and Anxiety F41.9 [facility] [address] 19690- 2077 Jun, Back pain M54.9 and Anxiety F41.9 [facility] [address] [place] [id number] [place] [address] 14978- 0972 14 May, 2017 Anxiety F41.9 [facility] [address] 74470- 1471 06 May, 2017 Back pain M54.9 [facility] [address] [place] [address] [id number] [place] [address] 08865- 7629 Apr, Back pain M54.9 [facility] [address] 14106- 0387 Apr, Anxiety F41.9 [facility] [address] [place] [id number] [place] [address] 89431- 1801 Mar, Back pain M54.9 [facility] [address] [place] [address] [id number] [place] [address] 43813- 1866 14 Feb, 2017 Back pain M54.9 and Anxiety F41.9 [facility] [address] [place] [id number] [place] [address] 14680- 1030 January, Back pain M54.9 [facility] [address] [place] [address] [id number] [place] [address] 14425- 2195 January, Acute prostatitis N41.0 [facility] [address] [place] [address] [id number] [place] [address] 18278- 0555 January, Anxiety F41.9 and Back pain M54.9 [facility] [address] [place] [id number] [place] [address] 89033- 8431 Dec, Back pain M54.9 [facility] [address] [place] [address] [id number] [place] [address] 70868- 1558 Nov, Back pain M54.9 [facility] [address] [place] [id number] [place] [address] 41392- 6193 Nov, [facility] [address] [place] [address] [id number] [place] [address] 08761- 7608 Nov, Back pain M54.9 ; Anxiety F41.9 and Morbid obesity due to excess calories E66.01 [facility] [address] [place] [id number] [place] [address] 21887- 8155 Nov, Anxiety F41.9 [facility] [address] [place] [id number] [place] [address] 65049- 8977 Oct, Back pain M54.9 [facility] [address] [place] [address] [id number] [place] [address] 24388- 4623 Oct, [facility] [address] [place] [address] [id number] [place] [address] 71045- 7297 Oct, Anxiety F41.9 [facility] [address] [place] [id number] [place] [address] 04668- 9603 Sep, Back pain M54.9 [facility] [address] [facility] [id number] [address]- 8729 Aug, Back pain M54.9 and Anxiety F41.9 [facility] [address] [place] [id number] [place] [address] 12034 2546 Aug, [facility] [address] [place] [id number] [place] [address] 36796 2546 Aug, Back pain M54.9 [facility] [address] [facility] [id number] [place] [address], [place] [address] 2542 Aug, Back pain M54.9 and Anxiety F41.9 [facility] [address] [place] [id number] [place] [address] 61012- 0365 Aug, Back pain M54.9 [facility] [address] [place] [id number] [place] [address] 46653- 9935 Jul, [facility] [address] [place] [id number] [place] [address] 94268- 7755 Jun, [facility] [address] [place] [id number] [place] [address] 57338- 2236 May, [facility] [address] [place] [id number] [place] [address] 55695- 9166 Apr, [facility] [address] [place] [address] 08412- 4518 Apr, Acute frontal sinusitis, recurrence not specified J01.10 and Exophthalmos H05.20 [facility] [address] [address]- 0523 Apr, [facility] [address] [place] [id number] [place] [address] 52387- 5196 Mar, [facility] [address] [place] [id number] [place] [address] 86450- 4188 Mar, [facility] [address] [place] [id number] [place] [address] 25286- 4835 Feb, Back pain M54.9 [facility] [address] [place] [id number] [place] [address] 85945- 6232 January, Gout M10.9 [facility] [address] [place] [id number] [place] [address] 45564 2546 January, Gout M10.9 [facility] [address] [place] [id number] [place] [address] 96107 2546 Dec, Gout M10.9 [facility] [address] [place] [id number] [place] [address] 36555- 2660 Dec, [facility] [address] 91294- 1182 Dec, Anxiety F41.9 [facility] [address] [place] [id number] [place] [address] 89793- 7310 Nov, Back pain M54.9 [facility] [address] [place] [id number] [place] [address] 65050- 3520 Sep, Back pain M54.9 and Accelerated hypertension I10 [facility] [address] [place] [id number] [place] [address] 50636- 2611 Sep, Insomnia G47.00 [facility] [address] [place] [id number] [place] [address] 22879- 6049 Sep, Back pain M54.9 [facility] [address] [place] [address] [id number] [place] [address] 53545- 5402 Sep, [facility] [address] [place] [id number] [place] [address] 06568- 5172 Aug, [facility] [address] [place] [id number] [place] [address] 07566- 1707 Aug, [facility] [address] [place] [id number] [place] [address] 98668- 8008 Jul, [facility] [address] [place] [address] [id number] [place] [address] 44514- 4623 Jun, [facility] [address] [place] [address] 13650- 1377 Jun, Encounter for immunization Z23 ; Back pain M54.9 and Anxiety F41.9 [facility] [address] [place] [id number] [place] [address]- 9297 Jun, [facility] [address] [place] [id number] [place] [address], [place] [address]- 0026 May, [facility] [address] [place] [address] [id number] [place] [address], [place] [address]- 0705 Apr, [facility] [address] [place] [id number] [place] [address], [place] [address]- 4841 Mar, [facility] [address] [id number] [place] [address], [place] [address]- 3639 Feb, [facility] [address] [place] [id number] [place] [address] 38582- 2680 January, [facility] [address] [place] [address] 82026- 2319 January, [facility] [address] [place] [address] [id number] [place] [address] 25149- 1830 January, [facility] [address] [address]- 8507 Dec, [facility] [address] [place] [address] 58740- 7645 Dec, [facility] [address] [place] [id number] [address]- 6672 Nov, [facility] [address] [place] [id number] [place] [address] 72349- 9908 Nov, [facility] [address] [address]- 9271 24 Nov, 2014 [facility] [address] [place] [id number] [place] [address] 97724- 2546 Nov, [facility] [place] [facility] [address] [id number] [place] [address]- 0638 Nov, [facility] [place] [facility] [address] [id number] [place] [address]- 3996 Nov, [facility] [place] [facility] [address] [facility] [id number] [place] [address]- 3980 Nov, [facility] [place] [facility] [address] [id number] [place] [address]- 6373 Nov, [facility] [place] [facility] [address] [id number] [place] [address]- 4775 Nov, [facility] [place] [facility] [address] [id number] [place] [address]- 9378 Oct, [facility] [place] [facility] [address] [facility] [id number] [place] [address]- 0079 Oct, [facility] [place] [facility] [address] [facility] [id number] [place] [address]- 9878 Oct, [facility] [place] [facility] [address] [facility] [id number] [place] [address]- 9326 Oct, [facility] [place] [facility] [address] [facility] [id number] [place] [address]- 9179 Oct, [facility] [place] [facility] [address] [facility] [id number] [place] [address]- 0694 Oct, [facility] [place] [facility] [address] [id number] [address]- 2545 Oct, [facility] [place] [facility] [address] [id number] [place] [address]- 0829 Sep, [facility] [place] [facility] [address] [facility] [id number] [address]- 2546 Sep, [facility] [place] [facility] [address] [facility] [id number] [address]- 1086 Sep, [facility] [place] [facility] [address] [id number] [place] [address]- 9740 Sep, [facility] [place] [facility] [address] [id number] [place] [address]- 2196 Aug, [facility] [place] [facility] [address] [id number] [place] [address]- 3354 Aug, [facility] [place] [facility] [address] [id number] [place] [address]- 4836 Aug, [facility] [place] [facility] [address] [id number] [place] [address]- 8992 Aug, [facility] [place] [facility] [address] [id number] [place] [address]- 6197 Aug, [facility] [place] [facility] [address] [id number] [place] [address]- 3392 Aug, [facility] [place] [facility] [address] [id number] [place] [address]- 4807 Jul, [facility] [place] [facility] [address] [id number] [place] [address]- 2659 Jul, [facility] [place] [facility] [address] [id number] [place] [address]- 5323 Jul, [facility] [place] [facility] [address] [id number] [place] [address]- 1252 Jul, [facility] [place] [facility] [address] [id number] [place] [address]- 9980 Jul, [facility] [place] [facility] [address] [id number] [place] [address]- 8987 Jun, [facility] [place] [facility] [address] [id number] [place] [address]- 2509 Jun, [facility] [place] [facility] [address] [id number] [place] [address]- 1754 Jun, [facility] [place] [facility] [address] [id number] [place] [address]- 3309 14 Jun, 2014 [facility] [place] [facility] [address] [id number] [place] [address]- 3025 14 Jun, 2014 [facility] [place] [facility] [address] [id number] [place] [address]- 5782 May, [facility] [place] [facility] [address] [id number] [place] [address]- 8463 May, [facility] [place] [facility] [address] [id number] [place] [address]- 0415 May, [facility] [place] [facility] [address] [id number] [place] [address]- 9855 May, [facility] [place] [facility] [address] [id number] [place] [address]- 0945 May, [facility] [place] [facility] [address] [id number] [place] [address]- 1906 May, [facility] [place] [facility] [address] [id number] [place] [address]- 3654 May, [facility] [place] [facility] [address] [id number] [place] [address]- 5621 May, [facility] [place] [facility] [address] [id number] [place] [address]- 5864 Apr, [facility] [place] [facility] [address] [id number] [address]- 7624 Apr, [facility] [place] [facility] [address] [id number] [address]- 1748 Mar, [facility] [place] [facility] [address] [id number] [place] [address]- 1909 Mar, [facility] [place] [facility] [address] [id number] [place] [address]- 7356 Feb, [facility] [place] [facility] [address] [id number] [place] [address]- 5287 Feb, [facility] [place] [facility] [address] [id number] [place] [address]- 9516 January, [facility] [address] [id number] [place] [address]- 4737 January, [facility] [place] [facility] [address] [id number] [place] [address]- 2822 Dec, [facility] [place] [facility] [address] [id number] [place] [address]- 6523 Dec, [facility] [place] [facility] [address] [id number] [place] [address]- 7590 Dec, [facility] [place] [facility] [address] [id number] [place] [address]- 8216 Dec, [facility] [place] [facility] [address] [facility] [id number] [place] [address]- 0495 Nov, [facility] [place] [facility] [address] [id number] [place] [address]- 8987 Nov, [facility] [place] [facility] [address] [id number] [place] [address]- 2510 Oct, [facility] [place] [facility] [address] [id number] [place] [address]- 6245 Oct, [facility] [place] [facility] [address] [facility] [id number] [place] [address]- 1443 Oct, [facility] [place] [facility] [address] [id number] [place] [address]- 2917 Oct, [facility] [place] [facility] [address] [id number] [place] [address]- 8864 Oct, [facility] [place] [facility] [address] [id number] [place] [address]- 8157 Oct, [facility] [place] [facility] [address] [facility] [id number] [place] [address]- 6205 05 Oct, 2013 [facility] [place] [facility] [address] [facility] [id number] [place] [address]- 3584 Oct, [facility] [address] [id number] [place] [address]- 7554 Sep, [facility] [address] [id number] 7494 Sep, [facility] [address] [facility] [id number] [place] [address]- 9854 Aug, [facility] [place] [facility] [address] [id number] [place] [address]- 9280 Aug, [facility] [address] [id number] [place] [address]- 4226 Aug, [facility] [place] [facility] [address] [id number] [place] [address]- 1831 Aug, [facility] [address] [id number] [address]- 7626 Aug, [facility] [place] [facility] [address] [id number] [place] [address]- 4446 Aug, [facility] [address] [id number] [address]- 5967 Jul, [facility] [place] [facility] [address] [facility] [id number] [place] [address]- 9078 Jul, [facility] [address] [id number] [address]- 9764 Jul, [facility] [place] [facility] [address] [id number] [address]- 4888 Jul, [facility] [place] [address] [facility] [id number] [place] [id number] Jul, [facility] [place] [facility] [address] [id number] [address]- 5265 Jul, [facility] [place] [facility] [address] [id number] [place] [address]- 5161 Jun, [facility] [place] [facility] [address] [id number] [place] [address]- 1301 31 Jun, 2013 [facility] [place] [facility] [address] [id number] [place] [address]- 8055 30 Jun, 2012 [facility] [place] [facility] [address] [id number] [place] [address]- 0631 Jun, [facility] [place] [facility] [address] [id number] [place] [address]- 7117 Jun, [facility] [place] [facility] [address] [id number] [place] [address]- 3938 Jun, [facility] [place] [facility] [address] [id number] [place] [address]- 2669 Jun, [facility] [place] [facility] [address] [id number] [place] [address]- 2149 Jun, [facility] [place] [facility] [address] [id number] [place] [address]- 8137 Jun, [facility] [place] [facility] [address] [id number] [place] [address]- 4655 20 May, 2013 [facility] [place] [facility] [address] [id number] [place] [address]- 6873 18 May, 2012 [facility] [place] [facility] [address] [id number] [place] [address]- 2026 10 May, 2012 [facility] [place] [facility] [address] [id number] [place] [address] 254 09 May, 2012 [facility] [place] [facility] [address] [id number] [place] [address]- 2549 05 May, 2012 [facility] [place] [facility] [address] [id number] [place] [address]- 0154 03 May, 2013 [facility] [place] [facility] [address] [id number] [place] [address]- 5932 Apr, [facility] [place] [facility] [address] [id number] [place] [address]- 1241 Apr, [facility] [place] [facility] [address] [id number] [place] [address]- 6136 Apr, [facility] [place] [facility] [address] [id number] [place] [address]- 0052 Apr, [facility] [place] [facility] [address] [id number] [place] [address]- 6109 Apr, [facility] [place] [facility] [address] [id number] [place] [address]- 7087 Apr, [facility] [address] [id number] [place] [address] Apr, [facility] [place] [facility] [address] [id number] [place] [address] Apr, [facility] [place] [facility] [address] [id number] [place] [address] Mar, [facility] [place] [facility] [address] [id number] [place] [address] Mar, [facility] [place] [facility] [address] [id number] [place] [address] Mar, [facility] [place] [facility] [address] [id number] [place] [address] Mar, [facility] [place] [facility] [address] [id number] [place] [address] Mar, [facility] [place] [facility] [address] [id number] [place] [address] Mar, [facility] [place] [facility] [address] [id number] [place] [address] Mar, [facility] [place] [facility] [address] [id number] [place] [address] Mar, [facility] [place] [facility] [address] [id number] [place] [address]78 Mar, [facility] [place] [facility] [address] [id number] [place] [address]- [address] Mar, [facility] [address] [id number] [place] [address] Feb, [facility] [place] [facility] [address] [id number] [place] [address]- [address] Feb, [facility] [place] [facility] [address] [id number] [place] [address]- [address] Feb, [facility] [place] [facility] [address] [id number] [place] [address] Feb, [facility] [place] [facility] [address] [id number] [place] [address]- [address] Feb, [facility] [place] [facility] [address] [id number] [place] [address]- 100[address] January, [facility] [place] [facility] [address] [id number] [place] [address]- [address] January, [facility] [place] [facility] [address] [id number] [place] [address]- [address] January, [facility] [place] [facility] [address] [id number] [place] [address] January, [facility] [place] [facility] [address] [id number] [place] [address]- [address] Dec, [facility] [place] [facility] [address] [id number] [place] [address] Nov, [facility] [place] [facility] [address] [id number] [place] [address] Nov, [facility] [place] [facility] [address] [id number] [place] [address]- [address] 14 Nov, 2012 [facility] [place] [facility] [address] [id number] [place] [address]- [address] Nov, [facility] [place] [facility] [address] [id number] [place] [address]- [address] 08 Nov, 2012 [facility] [place] [facility] [address] [id number] [place] [address]- [address] Nov, [facility] [address] [id number] [place] [address] Oct, [facility] [address] [id number] [place] [address]- [address]36 Oct, [facility] [address] [id number] [place] [address] Oct, [facility] [address] [id number] [place] [address]- 2466 Oct, [facility] [address] [id number] [place] [address]- [address] Sep, [facility] [address] [id number] [place] [address] Sep, [facility] [address] [id number] [place] [address] Sep, [facility] [address] [id number] [place] [address]- [address] Sep, [facility] [address] [id number] [place] [address]- [address] Sep, [facility] [address] [id number] [place] [address]365 Sep, [facility] [address] [id number] [place] [address]- [address]184 Sep, [facility] [address] [id number] [place] [address]- 1492 Sep, [facility] [place] [facility] [address] [id number] [place] [address]- [address]076 Aug, [facility] [place] [facility] [address] [id number] [place] [address] Aug, [facility] [address] [id number] [place] [address] Aug, [facility] [place] [facility] [address] [id number] [place] [address] Aug, [facility] [place] [facility] [address] [id number] [place] [address]- 27[address] Aug, [facility] [place] [facility] [address] [id number] [place] [address]- [address] Aug, [facility] [place] [facility] [address] [id number] [place] [address]- [address] Aug, [facility] [place] [facility] [address] [id number] [place] [address]- [address]146 Aug, [facility] [place] [facility] [address] [id number] [place] [address] Aug, [facility] [place] [facility] [address] [id number] [place] [address]- [address]897 Aug, [facility] [place] [facility] [address] [id number] [place] [address]- [address] Aug, [facility] [place] [facility] [address] [id number] [place] [address] Aug, [facility] [place] [facility] [address] [id number] [place] [address] Aug, [facility] [place] [facility] [address] [id number] [address] Aug, [facility] [place] [facility] [address] [id number] [address] Aug, [facility] [place] [facility] [address] [id number] [place] [address] Aug, [facility] [place] [facility] [address] [id number] [place] [address] 14 Jul, 2012 [facility] [place] [facility] [address] [id number] [place] [address] 14 Jul, 2012 [facility] [place] [facility] [address] [id number] [place] [address] 13 Jul, 2012 [facility] [place] [facility] [address] [id number] [place] [address] 13 Jul, 2012 [facility] [place] [facility] [address] [id number] [place] [address] May, [facility] [place] [facility] [address] [id number] [place] [address] May, [facility] [place] [facility] [address] [id number] [place] [address] Apr, [facility] [place] [facility] [address] [id number] [place] [address] Apr, [facility] [place] [facility] [address] [id number] [place] [address] 8569 Apr, [facility] [place] [facility] [address] [id number] [place] [address] Apr, [facility] [place] [facility] [address] [id number] [place] [address] Apr, [facility] [place] [facility] [address] [id number] [place] [address] Mar, [facility] [place] [facility] [address] [id number] [place] [address]28 Mar, [facility] [place] [facility] [address] [id number] [place] [address]32 Mar, [facility] [place] [facility] [address] [id number] [place] [address] Feb, [facility] [place] [facility] [address] [id number] [place] [address] Feb, [facility] [place] [facility] [address] [id number] [place] [address] Feb, [facility] [place] [facility] [address] [id number] [place] [address] January, [facility] [place] [facility] [address] [id number] [place] [address] January, [facility] [address] [id number] [place] [address] Dec, [facility] [address] [id number] [place] [address] Dec, [facility] [address] [id number] [place] [address] 6413 Dec, [facility] [address] [id number] [place] [address] Dec, [facility] [address] [id number] [place] [address] Nov, [facility] [address] [id number] [place] [address] Nov, [facility] [address] [id number] [place] [address] 1687 Nov, [facility] [address] [id number] [place] [address] 95[address] Oct, [facility] [address] [id number] [place] [address] 1708 Oct, [facility] [address] [id number] [place] [address] Oct, [facility] [address] [id number] [place] [address] Sep, [facility] [place] [facility] [address] [id number] [place] [address] 3961 Sep, [facility] [place] [facility] [address] [id number] [place] [address] Aug, [facility] [place] [facility] [address] [id number] [place] [address] 3136 Aug, [facility] [address] [id number] [address] Aug, [facility] [place] [facility] [address] [id number] [place] [address] 1796 Jul, [facility] [place] [facility] [address] [id number] [place] [address] Jul, [facility] [place] [facility] [address] [facility] [id number] [place] [address]- [address]34 13 Jun, 2011 [facility] [place] [facility] [address] [id number] [place] [address]- [address]35 11 Jun, 2011 [facility] [place] [facility] [address] [id number] [place] [address], [place] [address]- [address] 29 Aug, 2010 [facility] [place] [facility] [address] [id number] [place] [address] Aug, [facility] [place] [facility] [address] [facility] [id number] [place] [address] 18[address] Aug, [facility] [place] [facility] [address] [facility] [id number] [place] [address] January, [facility] [place] [facility] [address] [facility] [id number] [address] Sep, [facility] [place] [facility] [address] [facility] [id number] [place] [address]227 30 Jul, 2009 [facility] [place] [facility] [address] [facility] [id number] [place] [address] Jul, [facility] [place] [facility] [address] [facility] [id number] [place] [address]- [address]34 12 Jul, 2009 [facility] [place] [facility] [address] [id number] [place] [address] 23 Jun, 2009 [facility] [place] [facility] [address] [facility] [id number] [place] [address] 14 Jun, 2009 [facility] [place] [facility] [address] [facility] [id number] [address] 14 Jun, 2009 [facility] [place] [facility] [address] [facility] [id number] [place] [address] Jun, [facility] [address] [facility] [id number] [place] [address] May, IMMUNIZATIONS No Known Immunizations SOCIAL HISTORY Never Assessed REASON FOR VISIT Controlled Refill Request PLAN OF CARE VITAL SIGNS MEDICATIONS Medication Instructions Dosage Frequency Start Date End Date Duration Status Alprazolam 2 MG Orally 2 times a day 1 tablet 12h 28 days Active RESULTS No Results PROCEDURES [...] History Flu and hypertension at [facility] 10/2016
--- OUTSIDE RECORDS SUMMARY | 2018-04-18 15:40 | XMS REPORT ---
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 Role Phone NADIR NOEL Unavailable PROBLEMS Type Condition ICD9-CM Code [id number] Code Onset Dates Condition Status SNOMED Code Problem Reactive depression F32.9 Active 20858438 Problem Morbid obesity due to excess calories E66.01 Active 220857686 Problem Anxiety F41.9 Active 42668508 Problem Back pain M54.9 Active 012313359 Problem Gout M10.9 Active 63557631 Problem Accelerated hypertension I10 Active [id number] ALLERGIES No Information ENCOUNTERS Encounter Location Date Diagnosis [facility] [id number] [place] [address] 76262- 8494 Dec, [facility] [id number] [place] [address] 18765- 7160 Nov, Anxiety F41.9 [facility] [id number] [place] [address] 39500- 2088 Sep, Back pain M54.9 and Anxiety F41.9 [facility] [id number] [place] [address] 54107- 0215 Sep, Anxiety F41.9 [facility] [id number] [place] [address] 15261- 5176 Aug, Back pain M54.9 and Anxiety F41.9 [facility] [id number] [place] [address] 14979- 7559 Aug, Back pain M54.9 and Anxiety F41.9 [facility] [id number] [place] [address] 40775- 0808 Jul, [facility] [id number] [place] [address] 08136- 7101 27 Jul, 2017 Back pain M54.9 ; Encounter for immunization Z23 ; Anxiety F41.9 ; Reactive depression F32.9 and Morbid obesity due to excess calories E66.01 [facility] [id number] [place] [address] 15387- 6407 08 Jul, 2017 Back pain M54.9 and Anxiety F41.9 [facility] [address] 32966- 9268 06 Jun, 2017 Back pain M54.9 and Anxiety F41.9 [facility] [address] 34124- 1535 14 May, 2017 Anxiety F41.9 [facility] [id number] [place] [address] 69231- 0285 06 May, 2017 Back pain M54.9 [facility] [address] 78652- 7487 Apr, Back pain M54.9 [facility] [id number] [place] [address] 60823- 9558 Apr, Anxiety F41.9 [facility] [id number] [place] [address] 87782- 0941 Mar, Back pain M54.9 [facility] [id number] [place] [address] 70019- 9835 Feb, Back pain M54.9 and Anxiety F41.9 [facility] [id number] [place] [address] 95094- 9722 January, Back pain M54.9 [facility] [address] 19920- 5770 January, Acute prostatitis N41.0 [facility] [id number] [place] [address] 29424- 3929 January, Anxiety F41.9 and Back pain M54.9 [facility] [id number] [place] [address] 27603- 5366 14 Dec, 2016 Back pain M54.9 [facility] [id number] [place] [address] 36208- 2647 24 Nov, 2016 Back pain M54.9 [facility] [id number] [place] [address] 65909- 4317 14 Nov, 2016 [facility] [id number] [place] [address] 06158- 2743 Nov, Back pain M54.9 ; Anxiety F41.9 and Morbid obesity due to excess calories E66.01 [facility] [id number] [place] [address] 03231- 2835 07 Nov, 2016 Anxiety F41.9 [facility] [id number] [place] [address] 88591- 7122 Oct, Back pain M54.9 [facility] [id number] [place] [address] 03258- 5331 Oct, [facility] [id number] [place] [address] 98704- 9879 Oct, Anxiety F41.9 [facility] [id number] [place] [address] 74640- 9698 Sep, Back pain M54.9 [facility] [id number] [place] [address] 17103- 4467 Aug, Back pain M54.9 and Anxiety F41.9 [facility] [id number] [place] [address] 48914- 2129 Aug, [facility] [id number] [place] [address] 33726- 4579 Aug, Back pain M54.9 [facility] [id number] [place] [address] 87265- 4269 Aug, Back pain M54.9 and Anxiety F41.9 [facility] [address] [place] [address] 43601- 3317 Aug, Back pain M54.9 [facility] [id number] [place] [address] 63794- 6086 Jul, [facility] [id number] [place] [address] 30255- 8465 Jun, [facility] [id number] [place] [address] 26808- 2274 May, [facility] [id number] [place] [address] 43591- 8717 Apr, [facility] [id number] [place] [address] 57095- 4251 Apr, Acute frontal sinusitis, recurrence not specified J01.10 and Exophthalmos H05.20 [facility] [id number] [place] [address] 28898- 6476 Apr, [facility] [id number] [place] [address] 13950- 1110 Mar, [facility] [id number] [place] [address] 62457- 7859 Mar, [facility] [id number] [place] [address] 10207- 8124 Feb, Back pain M54.9 [facility] [id number] [place] [address] 17459- 6156 January, Gout M10.9 [facility] [address] [place] [address] 94831- 9781 January, Gout M10.9 [facility] [id number] [place] [address] 89077- 4551 Dec, Gout M10.9 [facility] [id number] [place] [address] 29537- 9794 Dec, [facility] [id number] [place] [address] 45541- 3568 Dec, Anxiety F41.9 [facility] [address] 64315 254 Nov, Back pain M54.9 [facility] [address] 15087 2546 Sep, Back pain M54.9 and Accelerated hypertension I10 [facility] [address] 92498 2542 Sep, Insomnia G47.00 [facility] [address] 65465- 5821 Sep, Back pain M54.9 [facility] [address] 10477- 5191 Sep, [facility] [address] 62378- 1368 Aug, [facility] [address] 25960- 2430 Aug, [facility] [address] 78698- 9390 Jul, [facility] [id number] [place] [address] 88340- 9918 Jun, [facility] [address] 53064 2541 Jun, Encounter for immunization Z23 ; Back pain M54.9 and Anxiety F41.9 [facility] [address] 46043- 5516 Jun, [facility] [id number] [place] [address] 01272- 2544 May, [facility] [id number] [place] [address] 02311- 2542 Apr, [facility] [address] [id number] [place] [address]- 0702 Mar, [facility] [place] [facility] [address] [id number] [place] [address]- 2677 Feb, [facility] [place] [facility] [address] [id number] [place] [address]- 6073 January, [facility] [place] [facility] [address] [id number] [place] [address]- 1306 January, [facility] [place] [facility] [address] [id number] [place] [address]- 6153 January, [facility] [place] [facility] [address] [id number] [place] [address]- 7019 Dec, [facility] [place] [facility] [address] [id number] [place] [address]- 7080 Dec, [facility] [place] [facility] [address] [id number] [place] [address]- 1765 Nov, [facility] [place] [facility] [address] [id number] [place] [address]- 4449 Nov, [facility] [place] [facility] [address] [id number] [place] [address]- 3336 Nov, [facility] [place] [facility] [address] [id number] [place] [address]- 7055 Nov, [facility] [place] [facility] [address] [id number] [place] [address]- 8088 Nov, [facility] [place] [facility] [address] [id number] [place] [address]- 2753 Nov, [facility] [place] [facility] [address] [id number] [place] [address]- 5091 Nov, [facility] [place] [facility] [address] [id number] [place] [address]- 0784 Nov, [facility] [place] [facility] [address] [id number] [place] [address]- 3791 Nov, [facility] [place] [facility] [address] [id number] [place] [address]- 5673 Oct, 2014 [facility] [place] [facility] [address] [id number] [place] [address]- 6956 Oct, 2014 [facility] [place] [facility] [address] [id number] [place] [address]- 7925 Oct, 2014 [facility] [place] [facility] [address] [id number] [place] [address]- 2612 Oct, 2014 [facility] [place] [facility] [address] [id number] [place] [address]- 0251 Oct, 2014 [facility] [place] [facility] [address] [id number] [place] [address]- 9234 Oct, [facility] [place] [facility] [address] [id number] [place] [address]- 9208 Oct, 2014 [facility] [place] [facility] [address] [id number] [place] [address]- 3179 Sep, [facility] [place] [facility] [address] [id number] [place] [address]- 1194 Sep, [facility] [place] [facility] [address] [facility] [id number] [place] [address]- 2713 Sep, [facility] [place] [facility] [address] [facility] [id number] [place] [address]- 7206 Sep, [facility] [place] [facility] [address] [id number] [place] [address]- 7719 Aug, [facility] [place] [facility] [address] [id number] [place] [address]- 5809 Aug, [facility] [place] [facility] [address] [facility] [id number] [place] [address]- 6942 Aug, [facility] [place] [facility] [address] [id number] [place] [address]- 3557 Aug, [facility] [place] [facility] [address] [id number] [place] [address]- 3077 Aug, [facility] [place] [facility] [address] [id number] [place] [address]- 2874 Aug, [facility] [place] [facility] [address] [id number] [place] [address]- 3250 Jul, [facility] [place] [facility] [address] [id number] [place] [address]- 7886 Jul, [facility] [place] [facility] [address] [id number] [place] [address]- 7387 Jul, [facility] [place] [facility] [address] [id number] [place] [address]- 7994 Jul, [facility] [place] [facility] [address] [id number] [place] [address]- 8770 Jul, [facility] [place] [facility] [address] [id number] [place] [address]- 8717 Jun, [facility] [place] [facility] [address] [id number] [place] [address]- 5770 Jun, [facility] [place] [facility] [address] [id number] [place] [address]- 1051 Jun, [facility] [place] [facility] [address] [id number] [place] [address]- 3949 Jun, [facility] [place] [facility] [address] [id number] [place] [address]- 0456 Jun, [facility] [place] [facility] [address] [id number] [place] [address]- 3604 May, [facility] [place] [facility] [address] [id number] [place] [address]- 3963 May, [facility] [place] [facility] [address] [id number] [place] [address]- 8472 May, [facility] [place] [facility] [address] [id number] [place] [address]- 5306 May, [facility] [place] [facility] [address] [id number] [place] [address]- 4964 May, [facility] [place] [facility] [address] [id number] [place] 5455 May, [facility] [place] [facility] [address] [id number] [place] [address]- 3926 May, [facility] [place] [facility] [address] [id number] [place] [address]- 8656 May, [facility] [place] [facility] [address] [id number] [place] [address]- 7833 Apr, [facility] [place] [facility] [address] [id number] [place] [address]- 2610 Apr, [facility] [place] [facility] [address] [id number] [place] [address]- 3439 Mar, [facility] [place] [facility] [address] [id number] [place] [address]- 3977 Mar, [facility] [place] [facility] [address] [id number] [place] [address]- 0066 Feb, [facility] [place] [facility] [address] [id number] [place] [address]- 0487 Feb, [facility] [place] [facility] [address] [id number] [place] [address]- 6434 January, [facility] [place] [facility] [address] [id number] [place] [address]- 4456 January, [facility] [place] [facility] [address] [id number] [place] [address]- 5524 Dec, [facility] [place] [facility] [address] [id number] [place] [address]- 6217 Dec, [facility] [place] [facility] [address] [id number] [place] [address]- 7570 Dec, [facility] [place] [facility] [address] [id number] [place] [address]- 8002 Dec, [facility] [place] [facility] [address] [id number] [place] [address]- 6799 Nov, [facility] [place] [facility] [address] [id number] [place] [address]- 3646 Nov, [facility] [place] [facility] [address] [id number] [place] [address]- 0911 Oct, [facility] [place] [facility] [address] [id number] [place] [address]- 6598 Oct, [facility] [place] [facility] [address] [id number] [place] [address]- 9930 Oct, [facility] [place] [facility] [address] [id number] [place] [address]- 8700 Oct, [facility] [place] [facility] [address] [id number] [place] [address]- 2423 Oct, [facility] [place] [facility] [address] [id number] [place] [address]- 3469 Oct, [facility] [place] [facility] [address] [facility] [id number] [place] [address]- 1061 Oct, [facility] [place] [facility] [address] [facility] [id number] [place] [address]- 6452 Oct, [facility] [place] [facility] [address] [id number] [place] [address]- 1131 Sep, [facility] [place] [facility] [address] [id number] [place] [address]- 6503 Sep, [facility] [place] [facility] [address] [id number] [place] [address]- 2532 Aug, [facility] [place] [facility] [address] [id number] [place] [address]- 8095 Aug, [facility] [place] [facility] [address] [facility] [id number] [place] [address]- 0172 Aug, [facility] [place] [facility] [address] [id number] [place] 5215 Aug, [facility] [place] [facility] [address] [id number] [place] 8833 Aug, [facility] [place] [facility] [address] [id number] [place] 8891 Aug, [facility] [place] [facility] [address] [id number] [place] [address]- 8430 Jul, [facility] [place] [facility] [address] [id number] [place] [address]- 5055 Jul, [facility] [place] [facility] [address] [id number] [place] [address]- 6258 Jul, [facility] [place] [facility] [address] [id number] [place] [address]- 2339 Jul, [facility] [place] [address] [facility] [id number] [place] [id number] Jul, [facility] [place] [facility] [address] [id number] [place] [address]- 8257 Jul, [facility] [place] [facility] [address] [id number] [place] [address]- 8365 Jun, [facility] [place] [facility] [address] [id number] [place] [address]- 1679 31 Jun, 2013 [facility] [place] [facility] [address] [id number] [place] [address]- 4210 30 Jun, 2013 [facility] [place] [facility] [address] [id number] [place] [address]- 2604 29 Jun, 2013 [facility] [place] [facility] [address] [id number] [place] [address]- 1993 29 Jun, 2013 [facility] [place] [facility] [address] [id number] [place] [address]- 8279 15 Jun, 2013 [facility] [place] [facility] [address] [id number] [place] [address]- 6856 15 Jun, 2013 [facility] [place] [facility] [address] [id number] [place] [address]- 4678 02 Jun, 2013 [facility] [place] [facility] [address] [id number] [place] [address]- 7377 Jun, [facility] [place] [facility] [address] [id number] [place] [address]- 8942 20 May, 2013 [facility] [place] [facility] [address] [id number] [place] [address] 2544 18 May, 2013 [facility] [place] [facility] [address] [id number] [place] [address]- 1204 10 May, 2013 [facility] [place] [facility] [address] [id number] [place] [address]- 9012 09 May, 2013 [facility] [place] [facility] [address] [id number] [place] [address]- 7447 05 May, 2013 [facility] [place] [facility] [address] [id number] [place] [address]- 8607 03 May, 2013 [facility] [place] [facility] [address] [id number] [place] [address]- 8943 Apr, [facility] [place] [facility] [address] [id number] [place] [address]- 6050 Apr, [facility] [place] [facility] [address] [id number] [place] [address]- 4476 Apr, [facility] [place] [facility] [address] [id number] [place] [address]- 2540 Apr, [facility] [place] [facility] [address] [id number] [place] [address]- 6560 Apr, [facility] [place] [facility] [address] [id number] [place] [address]- 2542 14 Apr, 2013 [facility] [place] [facility] [address] [id number] [place] [address]- 9586 Apr, [facility] [place] [facility] [address] [id number] [place] [address]- 1373 Apr, [facility] [place] [facility] [address] [id number] [place] [address]- 8542 Mar, [facility] [place] [facility] [address] [id number] [place] [address]- 6865 Mar, [facility] [place] [facility] [address] [id number] [place] [address]- 4297 Mar, [facility] [address] [id number] [place] [address]- 8994 Mar, [facility] [place] [facility] [address] [id number] [place] [address]- 3281 Mar, [facility] [address] [id number] [place] [address]- 5387 Mar, [facility] [place] [facility] [address] [id number] [place] [address]- 9641 Mar, [facility] [place] [facility] [address] [id number] [place] [address]- 4110 Mar, [facility] [place] [facility] [address] [id number] [place] [address]- 1127 Mar, [facility] [place] [facility] [address] [id number] [place] [address]- 0358 Mar, [facility] [place] [facility] [address] [id number] [place] [address]- 0483 Feb, [facility] [place] [facility] [address] [id number] [place] [address]- 7673 14 Feb, 2013 [facility] [place] [facility] [address] [id number] [place] [address]- 3821 Feb, [facility] [place] [facility] [address] [id number] [place] [address]- 2013 05 Feb, 2013 [facility] [place] [facility] [address] [id number] [place] [address]- 6136 Feb, [facility] [address] [id number] [place] [address] January, [facility] [address] [id number] [place] [address] January, [facility] [address] [id number] [place] [address] January, [facility] [place] [facility] [address] [id number] [place] [address] January, [facility] [address] [id number] [place] [address] Dec, [facility] [address] [id number] [place] [address] Nov, [facility] [address] [id number] [place] [address] Nov, [facility] [place] [facility] [address] [id number] [place] [address] Nov, [facility] [address] [id number] [place] [address] Nov, [facility] [place] [facility] [address] [id number] [place] [address] Nov, [facility] [address] [id number] [place] [address] Nov, [facility] [place] [facility] [address] [id number] [place] [address] Oct, [facility] [place] [facility] [address] [id number] [place] [address] Oct, [facility] [place] [facility] [address] [id number] [place] [address] Oct, [facility] [place] [facility] [address] [id number] [place] [address]- [address] Oct, [facility] [place] [facility] [address] [id number] [place] [address] 29 Sep, 2012 [facility] [address] [id number] [place] [address] Sep, [facility] [place] [facility] [address] [id number] [place] [address]- [address] Sep, [facility] [place] [facility] [address] [id number] [place] [address] Sep, [facility] [place] [facility] [address] [id number] [place] [address] Sep, [facility] [place] [facility] [address] [id number] [place] [address]- [address] Sep, [facility] [place] [facility] [address] [id number] [place] [address] Sep, [facility] [place] [facility] [address] [id number] [place] [address] Sep, [facility] [address] [id number] [place] [address] Aug, [facility] [place] [facility] [address] [id number] [place] [address] Aug, [facility] [place] [facility] [address] [id number] [place] [address] 18 Aug, 2012 [facility] [place] [facility] [address] [id number] [place] [address] 18 Aug, 2012 [facility] [place] [facility] [address] [id number] [place] [address] 18 Aug, 2012 [facility] [place] [facility] [address] [id number] [place] [address] 18 Aug, 2012 [facility] [place] [facility] [address] [id number] [place] [address] Aug, [facility] [place] [facility] [address] [id number] [place] [address] Aug, [facility] [place] [facility] [address] [id number] [place] [address] Aug, [facility] [place] [facility] [address] [id number] [place] [address] Aug, [facility] [place] [facility] [address] [facility] [id number] [place] [address] Aug, [facility] [place] [facility] [address] [id number] [place] [address]- [address]84 Aug, [facility] [place] [facility] [address] [id number] [place] [address] Aug, [facility] [place] [facility] [address] [id number] [place] [address] 89[address] Aug, [facility] [place] [facility] [address] [id number] [place] [address] Aug, [facility] [place] [facility] [address] [id number] [place] [address] Aug, [facility] [place] [facility] [address] [id number] [place] [address]- [address] 14 Jul, 2012 [facility] [place] [facility] [address] [id number] [place] [address] 14 Jul, 2012 [facility] [place] [facility] [address] [id number] [place] [address] 13 Jul, 2012 [facility] [place] [facility] [address] [id number] [place] [address] 13 Jul, 2012 [facility] [place] [facility] [address] [id number] [place] [address] 20 May, 2012 [facility] [place] [facility] [address] [id number] [place] [address]- [address] 05 May, 2012 [facility] [place] [facility] [address] [facility] [id number] [place] [address] 15 Apr, 2012 [facility] [place] [facility] [address] [id number] [place] [address]- [address] Apr, [facility] [place] [facility] [address] [id number] [place] [address]- [address] Apr, [facility] [place] [facility] [address] [id number] [place] [address]- [address]106 Apr, [facility] [place] [facility] [address] [id number] [place] [address]- 30[address] Apr, [facility] [place] [facility] [address] [id number] [place] [address]- 45[address] Mar, [facility] [place] [facility] [address] [id number] [place] [address]- [address] Mar, [facility] [place] [facility] [address] [id number] [place] [address]- 23[address] Mar, [facility] [place] [facility] [address] [id number] [place] [address]- [address] Feb, [facility] [place] [facility] [address] [id number] [place] [address]- [address]885 Feb, [facility] [place] [facility] [address] [id number] [place] [address]- 408[address] Feb, [facility] [place] [facility] [address] [id number] [place] [address] 16[address] January, [facility] [place] [facility] [address] [id number] [place] [address]- [address]157 January, [facility] [place] [facility] [address] [id number] [place] [address] 8[address] Dec, [facility] [place] [facility] [address] [id number] [place] [address] 17 Dec, 2011 [facility] [place] [facility] [address] [id number] [id number] [address] Dec, [facility] [place] [facility] [address] [id number] [place] [address]- [address] Dec, [facility] [place] [facility] [address] [id number] [place] [id number] Nov, [facility] [place] [facility] [address] [id number] [place] [address] Nov, [facility] [place] [facility] [address] [id number] [place] [address] Nov, [facility] [place] [facility] [address] [id number] [place] [address] Oct, [facility] [place] [facility] [address] [id number] [place] [address] Oct, [facility] [place] [facility] [address] [id number] [place] [address] Oct, [facility] [place] [facility] [address] [id number] [place] [address] Sep, [facility] [place] [facility] [address] [id number] [place] [address] Sep, [facility] [place] [facility] [address] [id number] [place] [address] Aug, [facility] [place] [facility] [address] [facility] [id number] [place] [address] Aug, [facility] [place] [facility] [address] [facility] [id number] [place] [address] Aug, [facility] [place] [facility] [address] [id number] [place] [address] Jul, [facility] [place] [facility] [address] [id number] [place] [address] Jul, [facility] [place] [facility] [address] [id number] [place] [address] Jun, [facility] [place] [facility] [address] [id number] [place] [address] Jun, [facility] [place] [facility] [address] [id number] [place] [address] Aug, [facility] [id number] [place] [address] Aug, [facility] [id number] [place] [address] Aug, [facility] [id number] [place] [address] January, [facility] [id number] [place] [address] Sep, [facility] [id number] [place] [address] Jul, [facility] [id number] [place] [address] Jul, [facility] [id number] [place] [address] Jul, [facility] [id number] [place] [address] Jun, [facility] [id number] [place] [address] Jun, [facility] [address] [place] [address] Jun, [facility] [id number] [place] [address] Jun, [facility] [id number] [place] [address] May, IMMUNIZATIONS No Known Immunizations SOCIAL HISTORY Never Assessed REASON FOR VISIT Alprazolam and Oxycontin - 03/08 PLAN OF CARE VITAL SIGNS MEDICATIONS Medication Instructions Dosage Frequency Start Date End Date Duration Status OxyContin 10 mg Orally every 12 hrs 1 tablet 12h Feb, 28 days Active Alprazolam 2 MG Orally 2 times [...] History Flu and hypertension at [facility] 10/2016
--- OUTSIDE RECORDS SUMMARY | 2018-04-18 15:41 | XMS REPORT ---
Author Author DANIEL ESCOBAR Organization [facility] Address [address] [place] [address] Care Team Providers Care Qualitative Field Project Manager Name Role Phone DANIEL ESCOBAR Unavailable PROBLEMS Type Condition ICD9-CM Code MMC54-RK Code Onset Dates Condition Status SNOMED Code Problem Anxiety F41.9 Active 48867948 Problem Back pain M54.9 Active 385673252 Problem Morbid (severe) obesity due to excess calories E66.01 Active 617685282 Problem Allergic state, initial encounter T78.40XA Active 084476805 Problem Gout M10.9 Active 39499430 Problem Accelerated hypertension I10 Active 11484349 Problem Reactive depression F32.9 Active 85099858 Problem Morbid obesity due to excess calories E66.01 Active 082569670 ALLERGIES No Information ENCOUNTERS Encounter Location Date Diagnosis [place] [id number] [place] [address] 60160- 7047 13 Dec, 2017 Anxiety F41.9 [place] [id number] [place] [address] 41101- 6449 10 Dec, 2017 Encounter for medication monitoring Z51.81 ; Back pain M54.9 ; Anxiety F41.9 ; Reactive depression F32.9 ; Morbid (severe) obesity due to excess calories E66.01 and Allergic state, initial encounter T78.40XA [facility] [id number] [place] [address] 33155- 9590 Dec, Back pain M54.9 [facility] [address] 92316- 9322 Nov, Anxiety F41.9 [facility] [id number] [place] [address] 13849- 2699 Sep, Back pain M54.9 and Anxiety F41.9 [facility] [id number] [place] [address] 89627- 7621 Sep, Anxiety F41.9 [facility] [address] 41206- 2392 Aug, Back pain M54.9 and Anxiety F41.9 [facility] [address] 24922- 8686 Aug, Back pain M54.9 and Anxiety F41.9 [facility] [address] 21285- 6154 Jul, [facility] [address] 67987- 3878 Jul, Encounter for immunization Z23 ; Back pain M54.9 ; Anxiety F41.9 ; Reactive depression F32.9 and Morbid obesity due to excess calories E66.01 [facility] [address] 62160- 1482 08 Jul, 2017 Back pain M54.9 and Anxiety F41.9 [facility] [address] 09312- 2094 Jun, Back pain M54.9 and Anxiety F41.9 [facility] [id number] [place] [address] 70594- 1408 14 May, 2017 Anxiety F41.9 [facility] [address] 27549- 9176 06 May, 2017 Back pain M54.9 [facility] [id number] [place] [address] 09163- 9797 Apr, Back pain M54.9 [facility] [id number] [place] [address] 77483- 8637 Apr, Anxiety F41.9 [facility] [id number] [place] [address] 52491- 2257 Mar, Back pain M54.9 [facility] [id number] [place] [address] 08294- 7373 14 Feb, 2017 Back pain M54.9 and Anxiety F41.9 [facility] [id number] [place] [address] 68325- 4646 January, Back pain M54.9 [facility] [id number] [place] [address] 58852- 2011 January, Acute prostatitis N41.0 [facility] [id number] [place] [address] 02107- 7841 January, Anxiety F41.9 and Back pain M54.9 [facility] [id number] [place] [address] 82751- 3622 Dec, Back pain M54.9 [facility] [id number] [place] [address] 18380- 2672 Nov, Back pain M54.9 [facility] [id number] [place] [address] 64044- 4878 Nov, [facility] [id number] [place] [address] 49049- 6226 Nov, Back pain M54.9 ; Anxiety F41.9 and Morbid obesity due to excess calories E66.01 [facility] [id number] [place] [address] 57568- 7795 Nov, Anxiety F41.9 [facility] [id number] [place] [address] 64858- 0494 Oct, Back pain M54.9 [facility] [id number] [place] [address] 48036- 8143 Oct, [facility] [id number] [place] [address] 06081- 2152 Oct, Anxiety F41.9 [facility] [id number] [place] [address] 12655- 1991 Sep, Back pain M54.9 [facility] [id number] [address]- 4821 Aug, Back pain M54.9 and Anxiety F41.9 [facility] [address] [facility] [id number] [place] [address] 09676- 3656 Aug, [facility] [id number] [place] [address] 06176- 5646 Aug, Back pain M54.9 [facility] [address] [facility] [id number] [place] [address] 12949 2546 Aug, Back pain M54.9 and Anxiety F41.9 [facility] [id number] [place] [address] 81320- 6216 Aug, Back pain M54.9 [facility] [id number] [place] [address] 34410- 2160 Jul, [facility] [id number] [place] [address] 24097- 7569 Jun, [facility] [id number] [place] [address] 51412- 6020 May, [facility] [id number] [place] [address] 72023- 2250 Apr, [facility] [id number] [place] [address] 15369- 8598 Apr, Acute frontal sinusitis, recurrence not specified J01.10 and Exophthalmos H05.20 [facility] [address] [address]- 4322 Apr, [facility] [id number] [place] [address] 29062- 9896 Mar, [facility] [id number] [place] [address] 36486- 9676 Mar, [facility] [id number] [place] [address] 58447- 6182 Feb, Back pain M54.9 [facility] [id number] [place] [address] 82289- 1014 January, Gout M10.9 [facility] [id number] [place] [address] 35557 2546 January, Gout M10.9 [facility] [id number] [place] [address] 55204 2546 Dec, Gout M10.9 [facility] [id number] [place] [address] 86720- 7402 Dec, [facility] [id number] [place] [address] 44242- 8986 Dec, Anxiety F41.9 [facility] [id number] [place] [address] 15535- 6153 Nov, Back pain M54.9 [facility] [id number] [place] [address] 58469- 7435 Sep, Back pain M54.9 and Accelerated hypertension I10 [facility] [id number] [place] [address] 37880- 5197 Sep, Insomnia G47.00 [facility] [id number] [place] [address] 70870- 1361 Sep, Back pain M54.9 [facility] [id number] [place] [address] 27833- 0873 Sep, [facility] [id number] [place] [address] 12196- 4280 Aug, [facility] [id number] [place] [address] 16369- 8678 Aug, [facility] [id number] [place] [address] 63037- 0149 Jul, [facility] [id number] [place] [address] 80973- 7241 Jun, [facility] [address] [address]- 6475 Jun, Encounter for immunization Z23 ; Back pain M54.9 and Anxiety F41.9 [facility] [id number] [address]- 7163 08 Jun, [address] [facility] [id number] [place] [address] 12663- 8189 May, [facility] [id number] [place] [address]- [address] Apr, [facility] [id number] [place] [address] 87686- 1930 Mar, [facility] [id number] [place] [address] 80895- 8436 Feb, [facility] [id number] [place] [address] 82666- 2583 January, [facility] [id number] [address]- 5222 January, [facility] [address] [address]- 7450 January, [facility] [id number] [address]- 94[address] Dec, [facility] [id number] [address]- 7258 Dec, [facility] [id number] [address]- 8015 Nov, [facility] [id number] [address]- 2795 Nov, [facility] [id number] [address] Nov, [facility] [id number] [address]- 8426 Nov, [facility] [place] [facility] [address] [id number] [place] [address]- 6328 Nov, [facility] [place] [facility] [address] [id number] [place] [address]- 9568 Nov, [facility] [place] [facility] [address] [id number] [place] [address]- 4562 Nov, [facility] [place] [facility] [address] [id number] [place] [address]- 8971 Nov, [facility] [place] [facility] [address] [id number] [place] [address]- 3737 Nov, [facility] [place] [facility] [address] [id number] [place] [address]- 9011 Oct, [facility] [place] [facility] [address] [facility] [id number] [place] [address]- 8585 Oct, [facility] [place] [facility] [address] [facility] [id number] [place] [address]- 8629 Oct, [facility] [place] [facility] [address] [id number] [place] [address]- 7533 Oct, [facility] [place] [facility] [address] [facility] [id number] [place] [address]- 3507 Oct, [facility] [place] [facility] [address] [facility] [id number] [place] [address]- 8008 Oct, [facility] [place] [facility] [address] [facility] [id number] [place] [address]- 5610 Oct, [facility] [place] [facility] [address] [id number] [place] [address]- 1773 Sep, [facility] [place] [facility] [address] [facility] [id number] [place] [address]- 9526 Sep, [facility] [place] [facility] [address] [facility] [id number] [address]- 5845 Sep, [facility] [place] [facility] [address] [id number] [place] [address]- 9183 Sep, [facility] [place] [facility] [address] [id number] [place] [address]- 5561 Aug, [facility] [place] [facility] [address] [id number] [place] 5086 Aug, [facility] [place] [facility] [address] [id number] [place] [address]- 5946 Aug, [facility] [place] [facility] [address] [id number] [place] [address]- 0853 Aug, [facility] [place] [facility] [address] [id number] [place] [address]- 4341 Aug, [facility] [place] [facility] [address] [id number] [place] [address]- 2566 Aug, [facility] [place] [facility] [address] [id number] [place] [address]- 6364 Jul, [facility] [place] [facility] [address] [id number] [place] [address]- 3022 Jul, [facility] [place] [facility] [address] [id number] [place] [address]- 3987 Jul, [facility] [place] [facility] [address] [id number] [place] [address]- 6129 Jul, [facility] [place] [facility] [address] [id number] [place] [address]- 9534 Jul, [facility] [place] [facility] [address] [id number] [place] [address]- 7748 Jun, [facility] [place] [facility] [address] [id number] [place] [address]- 0597 Jun, [facility] [place] [facility] [address] [id number] [place] [address]- 4192 Jun, [facility] [place] [facility] [address] [id number] [place] [address]- 1659 Jun, [facility] [place] [facility] [address] [id number] [place] [address]- 8177 14 Jun, 2014 [facility] [place] [facility] [address] [id number] [place] [address]- 1690 May, [facility] [place] [facility] [address] [id number] [place] [address]- 0763 May, [facility] [place] [facility] [address] [id number] [place] [address]- 9251 May, [facility] [place] [facility] [address] [id number] [place] [address]- 5944 May, [facility] [place] [facility] [address] [id number] [place] [address]- 5028 May, [facility] [place] [facility] [address] [id number] [place] [address]- 3507 May, [facility] [place] [facility] [address] [id number] [place] [address]- 1824 May, [facility] [place] [facility] [address] [id number] [place] [address]- 3180 May, [facility] [place] [facility] [address] [id number] [place] [address]- 6799 Apr, [facility] [place] [facility] [address] [id number] [place] [address]- 5250 Apr, [facility] [place] [facility] [address] [id number] [address]- 6125 Mar, [facility] [place] [facility] [address] [id number] [place] [address]- 4256 Mar, [facility] [place] [facility] [address] [id number] [place] [address]- 3614 Feb, [facility] [place] [facility] [address] [id number] [place] [address]- 6442 Feb, [facility] [place] [facility] [address] [id number] [place] [address]- 0488 January, [facility] [place] [facility] [address] [id number] [place] [address]- 3956 January, [facility] [place] [facility] [address] [id number] [place] [address]- 4702 Dec, [facility] [place] [facility] [address] [id number] [place] [address]- 8007 Dec, [facility] [place] [facility] [address] [id number] [place] [address]- 8884 Dec, [facility] [place] [facility] [address] [id number] [place] [address]- 0105 Dec, [facility] [place] [facility] [address] [facility] [id number] [place] [address]- 6932 Nov, [facility] [place] [facility] [address] [id number] [place] [address]- 8031 Nov, [facility] [place] [facility] [address] [id number] [place] [address]- 6536 Oct, [facility] [place] [facility] [address] [facility] [id number] [place] [address]- 3266 Oct, [facility] [place] [facility] [address] [facility] [id number] [place] [address]- 0576 Oct, [facility] [place] [facility] [address] [facility] [id number] [place] [address]- 5082 Oct, [facility] [place] [facility] [address] [facility] [id number] [place] [address]- 3476 Oct, [facility] [place] [facility] [address] [id number] [place] [address]- 7720 Oct, [facility] [place] [facility] [address] [facility] [id number] [place] [address]- 3761 05 Oct, 2013 [facility] [place] [facility] [address] [facility] [id number] [address]- 4691 Oct, [facility] [place] [address] [id number] [place] [address]- 3263 Sep, [facility] [place] [facility] [address] [id number] 2206 Sep, [facility] [place] [address] [id number] [place] [address]- 0953 Aug, [facility] [place] [facility] [address] [id number] [place] [address]- 2031 Aug, [facility] [place] [address] [id number] [place] [address]- 1891 Aug, [facility] [place] [facility] [address] [id number] [place] [address]- 6033 Aug, [facility] [address] [id number] [place] [address]- 1238 Aug, [facility] [place] [facility] [address] [id number] [place] [address]- 2431 Aug, [facility] [address] [id number] [place] [address]- 3530 Jul, [facility] [place] [facility] [address] [id number] [place] [address]- 4668 Jul, [facility] [place] [facility] [address] [id number] [place] [address]- 9890 Jul, [facility] [place] [facility] [address] [id number] [place] [address]- 8851 Jul, [facility] [place] [address] [facility] [id number] [place] [id number] Jul, [facility] [place] [facility] [address] [id number] [place] [address]- 7099 Jul, [facility] [place] [facility] [address] [id number] [place] [address]- 9969 Jun, [facility] [place] [facility] [address] [id number] [place] [address]- 1664 31 Jun, 2013 [facility] [address] [id number] [place] [address]- 3250 30 Jun, 2013 [facility] [place] [facility] [address] [id number] [place] [address]- 1074 Jun, [facility] [address] [id number] [place] [address]- 8461 Jun, [facility] [place] [facility] [address] [id number] [place] [address]- 1560 Jun, [facility] [place] [address] [id number] [place] [address]- 3339 Jun, [facility] [place] [facility] [address] [id number] [place] [address]- 6630 Jun, [facility] [place] [address] [id number] [place] [address]- 9635 Jun, [facility] [place] [address] [id number] [place] [address]- 5220 20 May, 2013 [facility] [place] [facility] [address] [id number] [place] [address]- 0869 18 May, 2013 [facility] [place] [address] [id number] [place] [address]- 4898 10 May, 2013 [facility] [place] [facility] [address] [id number] [place] [address]- 2547 09 May, 2012 [facility] [place] [facility] [address] [id number] [place] [address]- 2544 05 May, 2012 [facility] [place] [facility] [address] [id number] [place] [address]- 5180 03 May, 2013 [facility] [place] [facility] [address] [id number] [place] [address]- 8314 Apr, [facility] [place] [facility] [address] [id number] [place] [address]- 9211 Apr, [facility] [place] [facility] [address] [id number] [place] [address]- 9026 Apr, [facility] [place] [facility] [address] [id number] [place] [address]- 9606 Apr, [facility] [place] [facility] [address] [id number] [place] [address]- 8887 Apr, [facility] [place] [facility] [address] [id number] [place] [address] Apr, [facility] [place] [facility] [address] [id number] [place] [address] Apr, [facility] [place] [facility] [address] [id number] [place] [address] Apr, [facility] [place] [facility] [address] [id number] [place] [address] Mar, [facility] [place] [facility] [address] [id number] [place] [address] Mar, [facility] [place] [facility] [address] [id number] [place] [address] Mar, [facility] [place] [facility] [address] [id number] [place] [address] Mar, [facility] [place] [facility] [address] [id number] [place] [address] Mar, [facility] [place] [facility] [address] [id number] [place] [address] Mar, [facility] [place] [facility] [address] [id number] [place] [address]698 15 Mar, 2013 [facility] [place] [facility] [address] [id number] [place] [address] Mar, [facility] [place] [facility] [address] [id number] [place] [address] Mar, [facility] [place] [facility] [address] [id number] [place] [address] Mar, [facility] [address] [id number] [place] [address] Feb, [facility] [place] [facility] [address] [id number] [place] [address] Feb, [facility] [place] [facility] [address] [id number] [place] [address]408 Feb, [facility] [place] [facility] [address] [id number] [place] [address]78 Feb, [facility] [place] [facility] [address] [id number] [place] [address]268 Feb, [facility] [place] [facility] [address] [id number] [place] [address]- [address]96 January, [facility] [place] [facility] [address] [id number] [place] [address] 134[address] January, [facility] [place] [facility] [address] [id number] [place] [address] January, [facility] [place] [address] [id number] [place] [address] January, [facility] [place] [facility] [address] [id number] [place] [address] Dec, [facility] [place] [facility] [address] [id number] [place] [address] Nov, [facility] [place] [facility] [address] [id number] [place] [address] 18 Nov, 2012 [facility] [place] [facility] [address] [id number] [place] [address] 14 Nov, 2012 [facility] [place] [facility] [address] [id number] [place] [address]- [address]369 Nov, [facility] [place] [facility] [address] [id number] [place] [address] 08 Nov, 2012 [facility] [place] [facility] [address] [id number] [place] [address] Nov, [facility] [address] [id number] [place] [address] Oct, [facility] [place] [facility] [address] [id number] [place] [address] Oct, [facility] [address] [id number] [place] [address]776 Oct, [facility] [place] [facility] [address] [id number] [place] [address] Oct, [facility] [place] [facility] [address] [id number] [place] [address]44 Sep, [facility] [address] [id number] [place] [address]69 Sep, [facility] [address] [id number] [place] [address]- [address] Sep, [facility] [address] [id number] [place] [address]- [address] Sep, [facility] [address] [id number] [place] [address]- [address] Sep, [facility] [address] [id number] [place] [address]8 Sep, [facility] [address] [id number] [place] [address] Sep, [facility] [place] [facility] [address] [id number] [place] [address] Sep, [facility] [place] [facility] [address] [id number] [place] [address]- [address] Aug, [facility] [place] [facility] [address] [id number] [place] [address]80 Aug, [facility] [place] [facility] [address] [id number] [place] [address]164 18 Aug, 2012 [facility] [place] [facility] [address] [id number] [place] [address] 18 Aug, 2012 [facility] [place] [facility] [address] [id number] [place] [address]- 2026 Aug, [facility] [place] [facility] [address] [id number] [place] [address] 0919 Aug, [facility] [place] [facility] [address] [id number] [place] [address] Aug, [facility] [place] [facility] [address] [id number] [place] [address] Aug, [facility] [place] [facility] [address] [id number] [place] [address] Aug, [facility] [place] [facility] [address] [id number] [place] [address] Aug, [facility] [place] [facility] [address] [id number] [place] [address] Aug, [facility] [place] [facility] [address] [id number] [place] [address] Aug, [facility] [place] [facility] [address] [id number] [place] [address] Aug, [facility] [place] [facility] [address] [id number] [place] [address] Aug, [facility] [place] [facility] [address] [id number] [address] Aug, [facility] [place] [facility] [address] [id number] [place] [address] Aug, [facility] [place] [facility] [address] [id number] [place] [address] 14 Jul, 2012 [facility] [place] [facility] [address] [id number] [place] [address] 14 Jul, 2012 [facility] [place] [facility] [address] [id number] [place] [address] Jul, [facility] [place] [address] [id number] [place] [address] 13 Jul, 2012 [facility] [place] [facility] [address] [id number] [place] [address] May, [facility] [place] [facility] [address] [id number] [place] [address] May, [facility] [place] [facility] [address] [id number] [place] [address] Apr, [facility] [place] [facility] [address] [id number] [place] [address] Apr, [facility] [place] [facility] [address] [id number] [place] [address] Apr, [facility] [place] [facility] [address] [id number] [place] [address] Apr, [facility] [place] [facility] [address] [id number] [place] [address] Apr, [facility] [place] [facility] [address] [id number] [place] [address] Mar, [facility] [place] [facility] [address] [id number] [place] [address] Mar, [facility] [place] [facility] [address] [id number] [place] [address] Mar, [facility] [place] [facility] [address] [id number] [place] [address] Feb, [facility] [place] [facility] [address] [id number] [place] [address] Feb, [facility] [place] [facility] [address] [id number] [place] [address] 137[address] Feb, [facility] [place] [facility] [address] [id number] [place] [address] January, [facility] [place] [facility] [address] [id number] [place] [address] January, [facility] [place] [facility] [address] [id number] [place] [address] 24 Dec, 2011 [facility] [place] [facility] [address] [id number] [place] [address] 17 Dec, 2011 [facility] [place] [facility] [address] [id number] [place] [address] 269[address] Dec, [facility] [place] [facility] [address] [id number] [place] [address] Dec, [facility] [place] [facility] [address] [id number] [place] [address] Nov, [facility] [place] [facility] [address] [id number] [place] [address] Nov, [facility] [place] [facility] [address] [id number] [place] [address] Nov, [facility] [place] [facility] [address] [id number] [place] [address] Oct, [facility] [place] [facility] [address] [id number] [place] [address] Oct, [facility] [place] [facility] [address] [id number] [place] [address] Oct, [facility] [place] [facility] [address] [id number] [place] [address] 15[address] Sep, [facility] [place] [facility] [address] [id number] [place] [address] Sep, [facility] [place] [facility] [address] [id number] [place] [address] Aug, [facility] [place] [facility] [address] [id number] [place] [address] 9[address] Aug, [facility] [place] [facility] [address] [id number] [address] Aug, [facility] [place] [facility] [address] [id number] [place] [address] Jul, [facility] [place] [facility] [address] [id number] [place] [address] Jul, [facility] [place] [facility] [address] [id number] [place] [address] Jun, [facility] [place] [facility] [address] [id number] [place] [address]247 Jun, [facility] [place] [facility] [address] [id number] [place] [address], [place] [address] Aug, [facility] [place] [facility] [address] [id number] [place] [address] Aug, [facility] [place] [facility] [address] [id number] [place] [address] 4748 Aug, [facility] [place] [facility] [address] [id number] [place] [address] 8981 January, [facility] [place] [facility] [address] [id number] [place] [address] Sep, [facility] [place] [facility] [address] [facility] [id number] [place] [address] 30 Jul, 2009 [facility] [place] [facility] [address] [id number] [place] [address] 24[address] Jul, [facility] [place] [facility] [address] [id number] [address] Jul, [facility] [place] [facility] [address] [id number] [place] [address] 23 Jun, 2009 [facility] [place] [facility] [address] [id number] [place] [address] 14 Jun, 2009 [facility] [place] [facility] [address] [facility] [id number] [place] [address] 14 Jun, 2009 [facility] [place] [facility] [address] [facility] [id number] [place] [address] 12 Jun, 2009 [facility] [address] [facility] [id number] [place] 16 May, 2009 IMMUNIZATIONS No Known Immunizations SOCIAL HISTORY Never Assessed REASON FOR VISIT Oxycontin- 05/31 PLAN OF CARE VITAL SIGNS MEDICATIONS Medication Instructions Dosage Frequency Start Date End Date Duration Status OxyContin 10 mg Orally every 12 hrs 1 tablet 12h 14 May, 2017 28 days Active RESULTS No Results [...] 12/2015 Hospitalization History Flu and hypertension at [facility] 10/2016
--- OUTSIDE RECORDS SUMMARY | 2018-04-18 15:41 | XMS REPORT ---
Author Author NADIR NOEL Organization [employer] Address Unknown Phone Unavailable Care Team Providers Care Payloader Machine Operator Name Role Phone NADIR NOEL CP Unavailable Allergies No Known Allergies Problems Problem Type Condition Code Onset Dates Condition Status Problem Anxiety F41.9 Active Problem Coronary atherosclerosis of unspecified type of vessel, [place] or graft 414.00 Active Problem Back pain M54.9 Active Problem Unspecified essential hypertension 401.9 Active Problem Impotence of organic origin 607.84 Active Medications Medication Code System Code Instructions Start Date End Date Status Dosage Oxycodone-Acetaminophen [facility] [address]-41 5-325 MG every 6 hrs December 07, 2014 1 tablet as needed Results No Known Results Summary Purpose [employer] Submission
--- OUTSIDE RECORDS SUMMARY | 2018-04-18 15:41 | XMS REPORT ---
Author Author NADIR NOEL Organization [facility] Address [address] [place] [address] Care Team Providers Care Roll Grinder Operator Name Role Phone NADIR NOEL Unavailable PROBLEMS Type Condition ICD9-CM Code MWM35-KR Code Onset Dates Condition Status SNOMED Code Problem Morbid obesity due to excess calories E66.01 Active 265203849 Problem Gout M10.9 Active 86932127 Problem Back pain M54.9 Active 091387297 Problem Accelerated hypertension I10 Active 18838734 Problem Anxiety F41.9 Active 40562863 ALLERGIES No Information SOCIAL HISTORY Never Assessed PLAN OF CARE VITAL SIGNS MEDICATIONS Medication Instructions Dosage Frequency Start Date End Date Duration Status Alprazolam 2 MG Orally 2 times a day 1 tablet 12h 30 days Active RESULTS No Results PROCEDURES No [...] 12/2015 Hospitalization History Flu and hypertension at [facility] 10/2016
--- OUTSIDE RECORDS SUMMARY | 2018-04-18 15:44 | XMS REPORT ---
Author Author [facility] Medical Staff Organization [facility] Address [address] [place], [place] [address] Phone [phone] Care Team Providers Care Supervisor Compounding And Finishing Name Role Phone NADIR SAUCEDA MD PP [phone] Summary purpose TRANSITION OF CARE AUTO GENERATION [...] Relevant diagnostic tests and/or laboratory data RESULTS Routine Urinalysis :30:00 Result Normal Range Units Color YELLOW Clarity Clear Specific [place] 1.030 1.003-1.035 pH 5.5 4.5-8.0 Glucose NEGATIVE Bilirubin NEGATIVE Ketones NEGATIVE Protein TRACE Urobilinogen 0.2 0-0.2 E.U./dL Nitrites NEGATIVE Blood 2+ Leukocytes NEGATIVE WBCs 0-5 RBCs 0-5 Squamous Epithelial Few Bacteria Occasional Mucous 3+ Chemistry :35:00 Result Normal Range Units Uric Acid 7.0 2.6-7.2 mg/dl Urine Chemistry :30:00 Result Normal Range Units Protein H 29 0-14 mg/dl Creatinine - Urine H 396.47 22.0-392 mg/dl Microalbumin 99.1 mg/l Reference Range Not Established Microalbumin Creatinine Ratio 25 0-30 mcg/mg Cre [facility] :35:00 Result Normal Range Units Parathyroid Hormone H 76 14-64 pg/mL Interpretive GuideIntact PTH Calcium ------- Normal ParathyroidNormal Normal HypoparathyroidismLow or Low NormalLow Hyperparathyroidism PrimaryNormal or High High SecondaryHigh Normal or Low Tertiary High High Non-Parathyroid HypercalcemiaLow or Low NormalHigh TEST PERFORMED AT: [facility] [address] [place] [address] SAMUEL BURLESON DO,MPH Body Fluid [id number]:30:00 Result Normal Range Units pH 5.5 4.5-8.0 Reference Lab ([facility]) [id number]:30:00 Result Normal Range Units Protein H 29 0-14 mg/dl Creatinine - Urine H 396.47 22.0-392 mg/dl Reference Lab (send out) [id number]:35:00 Result Normal Range Units Metanephrine, Free < 25 <=57 pg/mL Normetanephrine, Free 137 <=148 pg/mL Total Metanephrine 137 <=205 pg/mL For more information on this test, go to [email or web address].[employer]/faq/MetFract Free Elevations >4-fold upper reference range: strongly suggestive of a pheochromocytoma(1). Elevations >1- 4-fold upper reference range: significant but not diagnostic, may be due to medications or stress. Suggest running 24 hr urine fractionated metanephrines and/or serum Chromagranin A for confirmation. Reference: (1)Sonal Bains et al, Plasma Chromogranin A or Urine Fractionated Metanephrines Follow-Up Testing Improves the Diagnostic Accuracy of Plasma Fractionated Metanephrines for Pheochromocytoma. The Journal of Clinical Endocrinology # Metabolism 93(1), 91-95, 2008. TEST PERFORMED AT: [facility] [address] MILES CHANCE MD History of procedures Procedure Code Code Type Description Date Performed Performing Physician 31936 CPT-4 ASSAY OF PARATHORMONE 11-17-2014 SHANTELL PETERSEN 02742 CPT-4 ASSAY OF BLOOD/URIC ACID 11-17-2014 SHANTELL PETERSEN 06015 CPT-4 ASSAY OF PROTEIN, URINE 11-17-2014 SHANTELL PETERSEN 20846 CPT-4 ASSAY OF URINE CREATININE 11-17-2014 SHANTELL PETERSEN 92628 CPT-4 MICROALBUMIN, QUANTITATIVE 11-17-2014 SHANTELL PETERSEN 09059 CPT-4 URINALYSIS, AUTO W/SCOPE 11-17-2014 SHANTELL PETERSEN 83554 CPT-4 ASSAY OF METANEPHRINES 11-17-2014 SHANTELL PETERSEN 23289 CPT-4 ROUTINE VENIPUNCTURE 11-17-2014 SHANTELL PETERSEN Functional status No functional or cognitive status [...]
--- OUTSIDE RECORDS SUMMARY | 2018-04-18 15:44 | XMS REPORT ---
Author Author [facility] Medical Staff Organization [facility] Address [address], [place] [address] Phone [phone] Care Team Providers Care Senior Advisor Name Role Phone NADIR SAUCEDA MD PP [phone] Summary purpose TRANSITION OF CARE AUTO GENERATION [...] Range Units Color YELLOW Clarity Clear Specific [place] 1.030 1.003-1.035 pH 5.5 4.5-8.0 Glucose NEGATIVE [...] Microalbumin Creatinine Ratio 25 0-30 mcg/mg Cre Body Fluid :30:00 Result Normal Range Units pH 5.5 4.5-8.0 Reference Lab ([facility]) :30:00 Result Normal Range Units Protein H 29 0-14 mg/dl Creatinine - Urine H 396.47 22.0-392 mg/dl History of procedures No procedures recorded for [...]
--- OUTSIDE RECORDS SUMMARY | 2018-04-18 15:44 | XMS REPORT ---
Author Author [facility] Medical Staff Organization [facility] Address [address], [place] [address] Phone [phone] Care Team Providers Care Packaging Technician Name Role Phone NADIR SAUCEDA MD PP [phone] Summary purpose TRANSITION OF CARE AUTO GENERATION Chief Complaint and Reason for Visit Admit Diagnosis 1 MUSCLE WEAKNESS Problem list No authorized problems tracked for [...] tests and/or laboratory data RESULTS Radiology Results [id number]:38:00 CT HEAD W/O CONT PACs Image DATE OF EXAM: Jun 04 2014 [id number] HEAD WO CONTRAST : RADIOLOGY REPORT DATE OF SERVICE:06/04/14 HISTORY:Patient has left side weakness, severe hypertension. CT HEAD WITHOUT CONTRAST 1725 HOURS Axial images were obtained from base of skull to vertex. No intracranial hemorrhage is seen. There is no mass effect. Ventricular system is normal. The visualized orbits, sinuses and bony structures appear normal. IMPRESSION:Negative study of the brain. Areli Nugent DO MW/pb 06/04/2014 17:40:00 / 06/04/2014 20:08:04 cc:Dr. Nadir Sauceda This document has been electronically Signed by: On: DATE OF EXAM: Jun 04 2014 [id number] HEAD WO CONTRAST : RADIOLOGY REPORT DATE OF SERVICE:06/04/14 HISTORY:Patient has left side weakness, severe hypertension. CT HEAD WITHOUT CONTRAST 1725 HOURS Axial images were obtained from base of skull to vertex. No intracranial hemorrhage is seen. There is no mass effect. Ventricular system is normal. The visualized orbits, sinuses and bony structures appear normal. IMPRESSION:Negative study of the brain. Areli Nugent DO MW/pb 06/04/2014 17:40:06/04/2014 20:08:04 cc:Dr. Nadir Sauceda This document has been electronically Signed by: On: DATE OF EXAM: Jun 04 2014 [id number] HEAD WO CONTRAST : RADIOLOGY REPORT DATE OF SERVICE:06/04/14 HISTORY:Patient has left side weakness, severe hypertension. CT HEAD WITHOUT CONTRAST 1725 HOURS Axial images were obtained from base of skull to vertex. No intracranial hemorrhage is seen. There is no mass effect. Ventricular system is normal. The visualized orbits, sinuses and bony structures appear normal. IMPRESSION:Negative study of the brain. Areli Nugent DO MW/pb 06/04/2014 17:40:06/04/2014 20:08:04 cc:Dr. Nadir Sauceda This document has been electronically Signed by: ARELI NUGENT DO On: Jun 05 20141:38P Result Amended on 2014-06-05 at 08:21:37. Previous status was DC. Result Amended on 2014-06-05 at 13:38:40. Previous status was DC. History of procedures Procedure Code Code Type Description Date Performed Performing Physician 62127 CPT-4 CT HEAD/BRAIN W/O DYE 06-04-2014 NADIR SAUCEDA Functional status No functional or [...]
--- OUTSIDE RECORDS SUMMARY | 2018-04-18 15:47 | XMS REPORT ---
Author Author [facility] Medical Staff Organization [facility] Address [address] [place], [place] [address] Phone [phone] Care Team Providers Care Dinkey Locomotive Operator Name Role Phone NADIR SAUCEDA MD PP [phone] Summary purpose TRANSITION OF CARE AUTO GENERATION Chief Complaint and Reason for Visit Admit Diagnosis 1 BENIGN HYPERTENSION Problem list No authorized problems tracked for [...] diagnostic tests and/or laboratory data RESULTS Chemistry [id number]:20:00 Result Normal Range Units Sodium 140 134-145 mEq/l Potassium 3.5 3.5-5.1 mEq/l Chloride 101 98-107 mEq/l CO2 H 28.5 22-28 mEq/l Glucose 98 70-105 mg/dl BUN 12 7-18 mg/dl Creatinine H 1.49 0.6-1.3 mg/dl Calcium 9.1 8.4-10.2 mg/dl PO4 4.0 1.9-4.5 mg/dl Albumin 3.7 3.5-5 g/dl Osmolality L 279.1 280-300 mOsm/L Anion GAP 10.5 8-16 BUN/Creatinine Ratio L 8.1 10-20 Estimated GFR 63 >=60 mL/min/1.7 Hematology [id number]:20:00 Result Normal Range Units WBC 8.9 4.8-10.8 103/uL RBC 4.7 4.7-6.1 106/uL HGB 14.0 13.0-18.0 g/dl HCT L 40.9 41.9-52.0 % MCV 87.0 80-94 FL MCH 29.8 27-31 pg MCHC 34.2 33-37 g/dl RDW 13.8 11.5-15.5 % PLT 285 130-400 103/uL MPV H 11.4 7.3-10.4 FL Urine Chemistry [id number]:45:00 Result Normal Range Units Creatinine - Urine 244.02 22.0-392 mg/dl Microalbumin 47.4 mg/l Reference Range Not Established Reference Lab ([facility]) :20:00 Result Normal Range Units Renin 0.54 0.25-5.82 TEST PERFORMED AT: [facility] [address] [place] [address] JESSIE STAFFORD MD PHD Radiology Results :20:00 Result Normal Range Units MPV H 11.4 7.3-10.4 FL Reference Lab ([facility]) [id number]:45:00 Result Normal Range Units Creatinine - Urine 244.02 22.0-392 mg/dl History of procedures Procedure Code Code Type Description Date Performed Performing Physician 74608 CPT-4 COMPLETE CBC, AUTOMATED 10-02-2014 [facility] 10824 CPT-4 RENAL FUNCTION PANEL 10-02-2014 [facility] 07770 CPT-4 ASSAY OF RENIN 10-02-2014 [facility] 29794 CPT-4 ASSAY OF ALDOSTERONE 10-02-2014 [facility] 69864 CPT-4 ASSAY OF URINE CREATININE 10-02-2014 [facility] 21981 CPT-4 MICROALBUMIN, QUANTITATIVE 10-02-2014 [facility] Functional status No functional or cognitive status [...]
--- OUTSIDE RECORDS SUMMARY | 2018-04-18 15:47 | XMS REPORT ---
Author Author [facility] Medical Staff Organization [facility] Address [address], [place] [address] Phone [phone] Care Team Providers Care Brands Editor Name Role Phone NADIR SAUCEDA MD PP [phone] Summary purpose TRANSITION OF CARE AUTO GENERATION [...] diagnostic tests and/or laboratory data RESULTS Chemistry [id number]:20:00 Result Normal Range Units Sodium 140 134-145 [...] 10-20 Estimated GFR 63 >=60 mL/min/1.7 Hematology [id number]:20:00 Result Normal Range Units WBC 8.9 4.8-10.8 103/uL RBC 4.7 4.7-6.1 106/uL HGB 14.0 13.0-18.0 g/dl HCT L 40.9 41.9-52.0 % MCV 87.0 80-94 FL MCH 29.8 27-31 pg MCHC 34.2 33-37 g/dl RDW 13.8 11.5-15.5 % PLT 285 130-400 103/uL MPV H 11.4 7.3-10.4 FL Urine Chemistry :45:00 Result Normal Range Units Creatinine - Urine 244.02 22.0-392 mg/dl Microalbumin 47.4 mg/l Reference Range Not Established Radiology Results :20:00 Result Normal Range Units MPV H 11.4 7.3-10.4 FL Reference Lab ([facility]) :45:00 Result Normal Range Units Creatinine - Urine 244.02 22.0-392 mg/dl History of procedures No procedures [...]
== END 2018-04-18 08:47 | disposition home or self-care (01) ==
LOC: EDUNIT# 07:54 → ER 07:58
DX: S96.912A Strain of unspecified muscle and tendon at ankle and foot level, left foot, initial encounter (principal); I25.2 Old myocardial infarction; K21.9 Gastro-esophageal reflux disease without esophagitis; F41.9 Anxiety disorder, unspecified; F32.9 Major depressive disorder, single episode, unspecified; Z79.82 Long term (current) use of aspirin; Z82.49 Family history of ischemic heart disease and other diseases of the circulatory system; X50.0XXA Overexertion from strenuous movement or load, initial encounter; Y92.59 Other trade areas as the place of occurrence of the external cause; Y99.0 Civilian activity done for income or pay
CPT/HCPCS: 99283

== ENCOUNTER → 2018-05-29 | Outpatient (CLI) | payer OTHER, MEDICARE ==
[~2018-05-29] MED LIST changes: +BACK1EAC9 MC; +CYCL10TA9 PO; +MORP15TA
--- NOTE | 2018-05-29 17:12 | Diagnostic Imaging Report ---
PROCEDURE: MRI left joint lower extremity without contrast. TECHNIQUE: Multiplanar, multisequence non contrast-enhanced MRI of the left lower extremity was accomplished. INDICATION: Ankle pain after injury. COMPARISONS: None available. FINDINGS: TENDONS: Achilles is normal. The peroneal tendons are normal in position without tear or tenosynovitis. Posterior tibialis, flexor digitorum longus, and flexor hallucis longus are intact. Anterior tibialis, extensor hallucis longus, and extensor digitorum longus are also intact where visualized. LIGAMENTS: The anterior and posterior distal tibiofibular ligaments remain intact. The anterior talofibular ligament is thinned but remains intact and may be partially torn. Calcaneofibular and posterior talofibular ligaments are normal. Medial deltoid ligamentous complex remains intact. BONES AND CARTILAGE: No osteochondral lesion of the talar dome. No fracture or stress fracture. The articular cartilage of the tibiotalar and posterior subtalar joints are normal. SOFT TISSUES: No evidence of plantar fasciitis. Complete obliteration of the normal fat within the sinus tarsi space. Additionally, there is extensive edema along the interosseous and cervical ligaments within the sinus tarsi space. Subjacent bone marrow edema in the plantar aspect of the talus and dorsal aspect of the calcaneus is noted. IMPRESSION: 1. 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 There is likely associated sprain of the interosseous and cervical ligaments within the sinus tarsi space. Correlation for hindfoot instability and lateral hindfoot pain is advised. 2. Edema within the talus and calcaneus adjacent to the sinus tarsi space is likely reactive in nature. 3. Partial tear of the anterior talofibular ligament. Remainder of the lateral collateral ligamentous complex is intact. 4. No acute tendinous injury. Dictated by: Dictated on workstation # [id number]
== END ==
LOC: RAD 15:22
PROVIDERS: ATTEND Nurse Practitioner
DX: S93.492A Sprain of other ligament of left ankle, initial encounter (principal); M76.822 Posterior tibial tendinitis, left leg
CPT/HCPCS: 73721

== ENCOUNTER → 2018-08-29 | Outpatient (CLI) | payer OTHER ==
--- NOTE | 2018-08-29 09:51 | Diagnostic Imaging Report ---
PROCEDURE: MRI lumbar spine. TECHNIQUE: Multiplanar, multisequence MRI of the lumbar spine was performed without contrast. INDICATION: Back pain. FINDINGS: The alignment of the lumbar spine is normal. The vertebral body heights are well-maintained. There is no spondylolysis or spondylolisthesis. No fractures are identified. There are no marrow signal intensity abnormalities. The conus medullaris seen at L1 is normal in appearance. The T12-L1, L1-L2, and L3-L4 discs are normal in height, signal intensity morphology. At L4-L5, there is slight loss of disc height and signal intensity. At L5-S1, there is slight loss of disc height and signal intensity with some broad-based annular bulging. There is slight effacement of the ventral thecal sac and mild encroachment upon the lateral recess bilaterally as well as mild bilateral neuroforaminal encroachment. There is no other focal disc extrusion or high-grade spinal stenosis. The abdominal aorta is nonaneurysmal. There is a cyst in left kidney. IMPRESSION: Mild lower lumbar degenerative disc disease, otherwise unremarkable. Dictated by: Dictated on workstation # [id number]
== END ==
LOC: RAD 08:28
PROVIDERS: ATTEND Orthopaedic Surgery
DX: M47.816 Spondylosis without myelopathy or radiculopathy, lumbar region (principal)
CPT/HCPCS: 72148

== ENCOUNTER 2018-10-21 09:36 | Outpatient (CLI) | payer OTHER ==
[~2018-10-21] VITALS: Ht 162.6 cm; Wt 99.3 kg
[~2018-10-21 09:36] MED LIST changes: -MORP15TA; +MORP15TA PO
[2018-10-21 09:49] VITALS: BP 166/98
[2018-10-21 10:38] LABS: BASOPHILS % (AUTO) 0 % (0-10); EOSINOPHILS # (AUTO) 0.1 10^3/uL (0.0-0.3); EOSINOPHILS % (AUTO) 1 % (0-10); HEMATOCRIT 43 % (40-54); HEMOGLOBIN 14.4 G/DL (13.3-17.7); LYMPHOCYTES # (AUTO) 2.4 X 10^3 (1.0-4.0); LYMPHOCYTES % (AUTO) 25 % (12-44); MEAN CORPUSCULAR HEMOGLOBIN 30 PG (25-34); MEAN CORPUSCULAR HGB CONC 33 G/DL (32-36); MEAN CORPUSCULAR VOLUME 89 FL (80-99); MEAN PLATELET VOLUME 12.2 FL (7.4-10.4); MONOCYTES # (AUTO) 0.8 X 10^3 (0.0-1.0); MONOCYTES % (AUTO) 8 % (0-12); NEUTROPHILS # (AUTO) 6.1 X 10^3 (1.8-7.8); NEUTROPHILS % (AUTO) 65 % (42-75); PLATELET COUNT 196 10^3/uL (130-400); RED CELL DISTRIBUTION WIDTH 14.7 % (10.0-14.5); WHITE BLOOD COUNT 9.4 10^3/uL (4.3-11.0)
--- NOTE | 2018-10-21 10:43 | Diagnostic Imaging Report ---
INDICATION: Preop evaluation.. TECHNIQUE: Two view chest 10:13 AM CORRELATION STUDY: 12/23/2015 FINDINGS: The heart size, mediastinal configuration and pulmonary vasculature are relatively stable with borderline heart size. The lungs are clear with no consolidating infiltrate. There is no significant pleural effusion or pneumothorax. Visualized osseous structures are unremarkable. IMPRESSION: 1. No radiographic evidence for acute abnormality of the chest. Dictated by: Dictated on workstation # [id number]
[2018-10-21 10:51] LABS: BUN/CREATININE RATIO 9; CARBON DIOXIDE 22 MMOL/L (21-32); CHLORIDE 108 MMOL/L (98-107); CREATININE SERUM 1.38 MG/DL (0.60-1.30); GFR ESTIMATED > 60; GLUCOSE 107 MG/DL (70-105); POTASSIUM 3.5 MMOL/L (3.6-5.0); SODIUM 142 MMOL/L (135-145)
[2018-10-21] MEDS ORDERED: COLC0.6T53 PO (11:14)
[2018-10-21] MEDS ORDERED: LIDO700A45 TP (11:14)
[2018-10-21] MEDS ORDERED: TEST200V21 IM (11:14)
[2018-10-21] MEDS ORDERED: TIZA4TAB3 PO (11:14)
[2018-10-21] MEDS ORDERED: FURO20TA4 PO (11:14)
[2018-10-21] MEDS ORDERED: MORP-34 PO (11:14)
[2018-10-21] MEDS ORDERED: CHOL500049 PO (11:14)
[2018-10-21] MEDS ORDERED: MONT10TA24 PO (11:14)
[2018-10-21] MEDS ORDERED: AMLO10TA7 PO (11:14)
[2018-10-21] MEDS ORDERED: DOXA8TAB73 PO (11:14)
[2018-10-21] MEDS ORDERED: BUSP10TA95 PO (11:14)
[2018-10-21] MEDS ORDERED: ESOM40CA52 PO (11:14)
[2018-10-21] MEDS ORDERED: NORT10CA PO (11:14)
[2018-10-21] MEDS ORDERED: METF-397 PO (11:14)
[2018-10-21] MEDS ORDERED: NITR0.4T39 SL (11:16)
[2018-10-21] MEDS ORDERED: ASPI-999 PO (11:16)
[2018-10-21] MEDS ORDERED: OMEG-77 PO (11:16)
== END 2018-10-21 10:20 | disposition home or self-care (01) ==
LOC: PREOP 09:36
PROVIDERS: ATTEND Otolaryngology Otolaryngology/Facial Plastic Surgery
DX: Z01.818 Encounter for other preprocedural examination (principal)
CPT/HCPCS: 36415; 71046; 80048; 85025; 87081; 93005

== ENCOUNTER 2018-10-25 07:35 | Day surgery (SDC) | payer OTHER ==
[~2018-10-25] VITALS: Ht 162.6 cm; Wt 99.3 kg
[~2018-10-25 07:35] MED LIST changes: +AMLO10TA7 PO; +ASPI-999 PO; +BUSP10TA95 PO; +CHOL500049 PO; +COLC0.6T53 PO; +DOXA8TAB73 PO; +ESOM40CA52 PO; +FURO20TA4 PO; +LIDO700A45 TP; +METF-397 PO; +MONT10TA24 PO; +MORP-34 PO; +NITR0.4T39 SL; +NORT10CA PO; +OMEG-77 PO; +TEST200V21 IM; +TIZA4TAB3 PO
[2018-10-25 07:45] VITALS: BP 179/101
[2018-10-25] MEDS ORDERED: MIDAZOLAM 2 MG/2 ML (VERSED) VIAL IV ONE (08:00)
[2018-10-25] MEDS ORDERED: FAMOTIDINE 20MG/2ML IV (PEPCID) IV ONE (08:00)
[2018-10-25] MEDS ORDERED: LACTATED RINGERS 1,000 ML IV PRN (08:00)
[2018-10-25] MEDS ORDERED: MIDAZOLAM 2 MG/2 ML (VERSED) VIAL ONE (08:17)
[2018-10-25] MEDS ORDERED: FAMOTIDINE 20MG/2ML IV (PEPCID) ONE (08:19)
[2018-10-25] MEDS ORDERED: PHENYLEPHRINE 0.5% NASAL SPR (NEO-SYNEPHRINE) REG ONE (08:21)
--- NOTE | 2018-10-25 08:21 | Progress Note-Pre Operative ---
Pre-Operative Progress Note H&P Reviewed The H&P was reviewed, patient examined and no changes noted. 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
[2018-10-25] MEDS ORDERED: LIDOCAINE/EPI 1%-1:100,000 (XYLOCAINE) 20ML ONE (08:22)
[2018-10-25] MEDS ORDERED: fentaNYL INJECTION 100 MCG/2 ML AMP ONE (08:30)
[2018-10-25] MEDS ORDERED: LIDOCAINE PF 2% 5 ML (XYLOCAINE) VIAL ONE (08:30)
[2018-10-25] MEDS ORDERED: ROCURONIUM 10 MG/ML 5 ML SYRINGE IV ONE (08:30)
[2018-10-25] MEDS ORDERED: proPOfol 200 MG/20 ML (DIPRIVAN) VIAL IV ONE (08:30)
[2018-10-25] MEDS ORDERED: ONDANSETRON 4 MG/2 ML (SDV) Z0FRAN ONE ×2 (08:30→10:03)
[2018-10-25] MEDS ORDERED: SEVOFLURANE (ULTANE) 15 ML INHAL SOLN ONE ×4 (08:49→10:04)
[2018-10-25] MEDS ORDERED: NEOSTIGMINE 1 MG/ML 5 ML SYRINGE ONE (09:39)
[2018-10-25] MEDS ORDERED: GLYCOPYRROLATE 0.2 MG/ML (ROBINUL) 2 ML VIAL ONE (09:39)
[2018-10-25] MEDS ORDERED: D5 1/2 NS W/KCL 20 MEQ/L 1,000 ML IV SCH (09:50)
--- NOTE | 2018-10-25 09:50 | Progress Note-Post Operative ---
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 Specimen(s) collected/removed SAJAN Alexis MD Oct 25, 2018 09:50
[2018-10-25] MEDS ORDERED: morphine INJ 10 MG/ML 1ML (SYR OR VIAL) ONE (09:57)
[2018-10-25] MEDS ORDERED: ONDANSETRON 4 MG/2 ML (SDV) Z0FRAN IVP PRN (10:00)
[2018-10-25] MEDS ORDERED: PROMETHAZINE INJ 25 MG/ML (PHENERGAN) AMP IVP PRN (10:00)
[2018-10-25] MEDS ORDERED: morphine INJ 10 MG/ML 1ML (SYR OR VIAL) IVP ONE (10:00)
[2018-10-25] MEDS ORDERED: ACETAMINOPHEN 325 MG TABLET PO PRN (10:00)
[2018-10-25] MEDS ORDERED: MEPERIDINE (DEMEROL) INJ 50 MG/ML IVP ONE (10:00)
[2018-10-25] MEDS ORDERED: HYDROcodone/APAP 5 MG/325 MG (LORTAB) TAB PO PRN (10:00)
--- NOTE | 2018-10-25 10:07 | Anesthesia-General Post-Op ---
General Patient Condition Mental Status/LOC: Same as Preop Cardiovascular: Satisfactory Nausea/Vomiting: Absent Respiratory: Satisfactory Pain: Controlled Complications: Absent Post Op Complications Complications None Follow Up Care/Instructions Patient Instructions None needed. Anesthesia/Patient Condition Patient Condition Patient is doing well, no complaints, stable vital signs, no apparent adverse anesthesia problems. No complications reported per nursing. ALEM DAY CRNA Oct 25, 2018 10:07
[2018-10-25 10:30] VITALS: BP 153/92
[2018-10-25] MEDS ORDERED: HYDR-3812 PO (10:42)
[2018-10-25 11:00] VITALS: BP 180/104
[2018-10-25] MEDS ORDERED: HYDROcodone/APAP 5 MG/325 MG (LORTAB) TAB ONE (11:17)
[2018-10-25 11:30] VITALS: BP 172/102
== END 2018-10-25 11:30 | disposition home or self-care (01) ==
LOC: SDC 07:35
PROVIDERS: ATTEND Otolaryngology Otolaryngology/Facial Plastic Surgery
DX: J34.3 Hypertrophy of nasal turbinates (principal); J30.9 Allergic rhinitis, unspecified; I25.10 Atherosclerotic heart disease of native coronary artery without angina pectoris; I11.0 Hypertensive heart disease with heart failure; I50.9 Heart failure, unspecified; E11.40 Type 2 diabetes mellitus with diabetic neuropathy, unspecified; G47.33 Obstructive sleep apnea (adult) (pediatric); K21.9 Gastro-esophageal reflux disease without esophagitis; I69.351 Hemiplegia and hemiparesis following cerebral infarction affecting right dominant side; E66.9 Obesity, unspecified; Z68.37 Body mass index [BMI] 37.0-37.9, adult; Z79.82 Long term (current) use of aspirin; Z79.84 Long term (current) use of oral hypoglycemic drugs; Z79.899 Other long term (current) drug therapy
CPT/HCPCS: 82962

== ENCOUNTER 2018-10-28 20:34 | Outpatient (CLI) | payer OTHER, MEDICARE ==
[~2018-10-28 20:34] MED LIST changes: +HYDR-3812 PO
== END 2018-10-29 05:03 | disposition home or self-care (01) ==
LOC: SLEEP 20:34
PROVIDERS: ATTEND Otolaryngology Otolaryngology/Facial Plastic Surgery
DX: G47.33 Obstructive sleep apnea (adult) (pediatric) (principal); R09.02 Hypoxemia
CPT/HCPCS: 95811

== ENCOUNTER 2018-12-22 19:38 | Emergency (ER) | payer OTHER, MEDICARE ==
[~2018-12-22] VITALS: Ht 162.6 cm; Wt 98.0 kg
--- NOTE | 2018-12-22 19:54 | ED Cough/URI ---
General Chief Complaint: Fever-Adult/Adol Stated Complaint: FEVER,BODY ACHES Nursing Triage Note: pt arrived pov with c/o body aches, fever, sore throat, chills for a week. Pt was seen at the walk in clinic and was given a bicillin injection and PO amoxicillin but he is getting worse. Sepsis Screen: No Definite Risk Source: patient Exam Limitations: no limitations History of Present Illness Date Seen by Provider: Dec 22, 2018 Time Seen by Provider: 19:53 Initial Comments To ER with a one-week history of worsening body aches fever sore throat and chills and diarrhea. He has slight cough. He was seen at a walk-in clinic at the onset of this, had a flu swab done which was negative, given an injection of Bicillin and oral amoxicillin. He denies any improvement. Timing/Duration: just prior to arrival Severity/Quality: moderate Associated Symptoms: cough, fever/chills, muscle aches, nasal congestion, sore throat Allergies and Home Medications Allergies Coded Allergies: Anne-Marie Known Allergies (Verified Allergy, Unknown, 01/01/06) Home Medications Alprazolam 2 Mg Tablet, 2 MG PO BID PRN for ANXIETY, (Reported) Amlodipine Besylate 10 Mg Tablet, 10 MG PO DAILY, (Reported) Atorvastatin Calcium 40 Mg Tablet, 40 MG PO HS, (Reported) Buspirone HCl 10 Mg Tablet, 10 MG PO BID, (Reported) Cholecalciferol (Vitamin D3) 50,000 Unit Capsule, 50,000 UNIT PO WEEK, (Reported ) Colchicine 0.6 Mg Tablet, 0.6 MG PO DAILY, (Reported) Doxazosin Mesylate 8 Mg Tablet, 8 MG PO DAILY, (Reported) Esomeprazole Magnesium 40 Mg Capsule.dr, 40 MG PO DAILY, (Reported) Furosemide 20 Mg Tablet, 20 MG PO DAILY, (Reported) Gabapentin 300 Mg Capsule, 300 MG PO TID, (Reported) Hydrocodone/Acetaminophen 1 Each Tablet, 1-2 TAB PO Q4H PRN for PAIN-MODERATE Prescribed by: OBED KING on 10/25/18 1042 Isosorbide Mononitrate 60 Mg Tab, 60 MG PO HS, (Reported) Lidocaine 1 Each Adh..patch, 1-2 PATCH TP DAILY, (Reported) 2 patches max for 12 hours, then 12 hours patch-free period. Metformin HCl 500 Mg Tablet, 500 MG PO DAILY, (Reported) Metoprolol Succinate 200 Mg Tab.er.24h, 200 MG PO HS, (Reported) Montelukast Sodium 10 Mg Tablet, 10 MG PO HS, (Reported) Morphine Sulfate 15 Mg Tablet, 15 MG PO BID, (Reported) Morphine Sulfate 30 Mg Tablet.er, 30 MG PO BID, (Reported) Nitroglycerin 0.4 Mg Tab.subl, 0.4 MG SL UD PRN for CHEST PAIN, (Reported) Nortriptyline HCl 10 Mg Capsule, 10 MG PO DAILY, (Reported) [place]-3 Fatty Acids/Fish Oil 1 Each Capsule, 1 EACH PO BID, (Reported) Testosterone Cypionate 200 Mg/1 Ml Vial, 200 MG IM q 2 weeks, (Reported) Tizanidine HCl 4 Mg Tablet, 4 MG PO TID PRN for MUSCLE SPASMS, (Reported) Venlafaxine HCl 150 Mg Cap.er.24h, 150 MG PO HS, (Reported) Vilazodone Hydrochloride 40 Mg Tablet, 40 MG PO HS, (Reported) Patient Home Medication List Home Medication List Reviewed: Yes Review of Systems Review of Systems Constitutional: see HPI, chills, fever, malaise EENTM: see HPI, nose congestion, throat pain (with) Respiratory: see HPI, cough Cardiovascular: no symptoms reported Genitourinary: no symptoms reported Musculoskeletal: no symptoms reported Skin: no symptoms reported Psychiatric/Neurological: No Symptoms Reported Hematologic/Lymphatic: No Symptoms Reported Immunological/Allergic: no symptoms reported Past Yksjctg-Uwixuc-Atdafa Hx Patient Social History 2nd Hand Smoke Exposure: Yes Recent Foreign Travel: No Contact w/Someone Who Travel: No Recent Infectious Disease Expo: No Recent Hopitalizations: No Immunizations Up To Date Tetanus Booster (TDap): Less than 5yrs Date of Pneumonia Vaccine: Aug 27, 2013 Date of Influenza Vaccine: Aug 27, 2018 Seasonal Allergies Seasonal Allergies: No Past Medical History Surgeries: Yes (leg fx, ) Orthopedic Respiratory: Yes Sleep Apnea Currently Using CPAP: Yes Cardiac: Yes (heart cath) Heart Attack, Hypertension Neurological: No Reproductive Disorders: No Genitourinary: Yes (stage 3 renal failure) Renal Failure Gastrointestinal: Yes Gastroesophageal Reflux Musculoskeletal: Yes Chronic Back Pain, Fractures, Gout Endocrine: Yes Diabetes, Non-Insulin dep HEENT: Yes (hypertrophy nasal turbinates) Cancer: No Psychosocial: Yes Anxiety Integumentary: No Blood Disorders: No Family Medical History Cancer, CAD Under 55 Years Old, Diabetes, Hypertension Physical Exam Vital Signs - First Documented 12/22/18 19:41 Temp 101.1 Pulse 104 Resp 18 Pulse Ox 98 Capillary Refill : Less Than 3 Seconds Height: 5'4.00" Weight: 216lbs. 0.0oz. 97.397606mg; 37.6 BMI Method:Stated General Appearance: WD/WN, no apparent distress Eyes: Bilateral Eye Normal Inspection, Bilateral Eye PERRL, Bilateral Eye EOMI HEENT: PERRL/EOMI, normal ENT inspection Neck: non-tender, full range of motion, lymphadenopathy (R), lymphadenopathy (L ) Respiratory: normal breath sounds, no respiratory distress, no accessory muscle use Cardiovascular: regular rate, rhythm Gastrointestinal: normal bowel sounds, non tender, soft Neurologic/Psychiatric: alert, normal mood/affect, oriented x 3 Skin: normal color, warm/dry Progress/Results/Core Measures Suspected Sepsis Recent Fever Within 48 Hours: Yes Infection Criteria Present: None New/Unexplained Altered Menta: No Sepsis Screen: No Definite Risk SIRS Temperature:101.1 Pulse: 104 Respiratory Rate: 18 Laboratory Tests 12/22/18 20:12: White Blood Count 5.5 Blood Pressure / Mean: Laboratory Tests 12/22/18 20:12: Creatinine 2.05H, Platelet Count 152, Total Bilirubin 0.5 Results/Orders Lab Results Laboratory Tests Test 12/22/18 19:59 12/22/18 20:12 Range/Units Group A Streptococcus Screen NEGATIVE NEGATIVE White Blood Count 5.5 4.3-11.0 10^3/uL Red Blood Count 4.42 4.35-5.85 10^6/uL Hemoglobin 13.6 13.3-17.7 G/DL Hematocrit 38 L 40-54 % Mean Corpuscular Volume 87 80-99 FL Mean Corpuscular Hemoglobin 31 25-34 PG Mean Corpuscular Hemoglobin Concent 36 32-36 G/DL Red Cell Distribution Width 13.8 10.0-14.5 % Platelet Count 152 130-400 10^3/uL Mean Platelet Volume 11.2 H 7.4-10.4 FL Neutrophils (%) (Auto) 69 42-75 % Lymphocytes (%) (Auto) 19 12-44 % Monocytes (%) (Auto) 12 0-12 % Eosinophils (%) (Auto) 0 0-10 % Basophils (%) (Auto) 0 0-10 % Neutrophils # (Auto) 3.8 1.8-7.8 X 10^3 Lymphocytes # (Auto) 1.0 1.0-4.0 X 10^3 Monocytes # (Auto) 0.7 0.0-1.0 X 10^3 Eosinophils # (Auto) 0.0 0.0-0.3 10^3/uL Basophils # (Auto) 0.0 0.0-0.1 10^3/uL Sodium Level 138 135-145 MMOL/L Potassium Level 3.4 L 3.6-5.0 MMOL/L Chloride Level 104 98-107 MMOL/L Carbon Dioxide Level 23 21-32 MMOL/L Anion Gap 11 5-14 MMOL/L Blood Urea Nitrogen 15 7-18 MG/DL Creatinine 2.05 H 0.60-1.30 MG/DL Estimat Glomerular Filtration Rate 43 BUN/Creatinine Ratio 7 Glucose Level 114 H 70-105 MG/DL Calcium Level 8.8 8.5-10.1 MG/DL Corrected Calcium 8.8 8.5-10.1 MG/DL Total Bilirubin 0.5 0.1-1.0 MG/DL Aspartate Amino Transf (AST/SGOT) 30 5-34 U/L Alanine Aminotransferase (ALT/SGPT) 35 0-55 U/L Alkaline Phosphatase 55 40-136 U/L Total Protein 7.1 6.4-8.2 GM/DL Albumin 4.0 3.2-4.5 GM/DL Monoscreen NEGATIVE NEGATIVE Micro Results Microbiology 12/22/18 Influenza Types A,B Antigen (ISABEL) - Final, Complete My Orders Orders - JESENIA OLVERA APRN Influenza A And B Antigens (12/22/18 19:52) Monotest (12/22/18 19:52) Cbc With Automated Diff (12/22/18 19:52) Comprehensive Metabolic Panel (12/22/18 19:52) Chest Pa/Lat (2 View) (12/22/18 19:52) Rapid Strep A Screen (12/22/18 19:52) Ibuprofen Tablet (Motrin Tablet) (12/22/18 20:00) Iv Heplock-Insert (Order) (12/22/18 20:41) Ns Iv 1000 Ml (Sodium Chloride 0.9%) (12/22/18 20:45) Medications Given in ED Current Medications Medications Dose Ordered Sig/Espinoza Route Start Time Stop Time Status Last Admin Dose Admin Ibuprofen 800 mg ONCE ONCE PO 12/22/18 20:00 12/22/18 20:01 DC 12/22/18 20:05 800 MG Vital Signs/I&O 12/22/18 19:41 Temp 101.1 Pulse 104 Resp 18 B/P (MAP) Pulse Ox 98 Capillary Refill : Less Than 3 Seconds Departure Impression Primary Impression: Viral syndrome Additional Impression: Acute renal insufficiency Disposition: HOME, SELF-CARE Condition: Stable Departure-Patient Inst. Decision time for Depature: 20:33 Referrals: NADIR NOEL MD (PCP/Family) Primary Care Physician Patient Instructions: Viral Syndrome (DC) Add. Discharge Instructions: Tylenol and Motrin for pain or fevers 2. Follow-up with your doctor later this week. All discharge instructions reviewed with patient and/or family. Voiced understanding. 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
[2018-12-22] MEDS ORDERED: IBUPROFEN 800 MG (MOTRIN) TAB PO ONE (20:00)
[2018-12-22 20:15] LABS: BASOPHILS % (AUTO) 0 % (0-10); EOSINOPHILS % (AUTO) 0 % (0-10); HEMATOCRIT 38 % (40-54); HEMOGLOBIN 13.6 G/DL (13.3-17.7); LYMPHOCYTES % (AUTO) 19 % (12-44); MEAN CORPUSCULAR HEMOGLOBIN 31 PG (25-34); MEAN CORPUSCULAR HGB CONC 36 G/DL (32-36); MEAN CORPUSCULAR VOLUME 87 FL (80-99); MEAN PLATELET VOLUME 11.2 FL (7.4-10.4); MONOCYTES # (AUTO) 0.7 X 10^3 (0.0-1.0); MONOCYTES % (AUTO) 12 % (0-12); NEUTROPHILS # (AUTO) 3.8 X 10^3 (1.8-7.8); NEUTROPHILS % (AUTO) 69 % (42-75); PLATELET COUNT 152 10^3/uL (130-400); RED CELL DISTRIBUTION WIDTH 13.8 % (10.0-14.5); WHITE BLOOD COUNT 5.5 10^3/uL (4.3-11.0)
--- NOTE | 2018-12-22 20:24 | Diagnostic Imaging Report ---
INDICATION: Bodyache, fever, sore throat, chills for a week. The patient was given antibiotics recently but is getting worse. COMPARISON STUDY: Chest from October the . FINDINGS: Two views of the chest demonstrate the lungs to be clear. The heart, mediastinum, pulmonary vascularity and visualized bony thorax are normal. IMPRESSION: Negative chest. Dictated by: Dictated on workstation # [id number]
[2018-12-22 20:36] LABS: BILIRUBIN,TOTAL 0.5 MG/DL (0.1-1.0); CALCIUM 8.8 MG/DL (8.5-10.1); CREATININE SERUM 2.05 MG/DL (0.60-1.30); POTASSIUM 3.4 MMOL/L (3.6-5.0); TOTAL PROTEIN 7.1 GM/DL (6.4-8.2)
[2018-12-22] MEDS ORDERED: NS IV 1000 ML 1,000 ML IV SCH (20:45)
[2018-12-22 21:48] VITALS: BP 138/75
== END 2018-12-22 21:50 | disposition home or self-care (01) ==
LOC: EDUNIT# 19:38 → ER 19:39
DX: B34.9 Viral infection, unspecified (principal); N28.9 Disorder of kidney and ureter, unspecified; G47.30 Sleep apnea, unspecified; I25.2 Old myocardial infarction; E11.22 Type 2 diabetes mellitus with diabetic chronic kidney disease; I12.9 Hypertensive chronic kidney disease with stage 1 through stage 4 chronic kidney disease, or unspecified chronic kidney disease; N18.3 Chronic kidney disease, stage 3 (moderate); F41.9 Anxiety disorder, unspecified; K21.9 Gastro-esophageal reflux disease without esophagitis; M10.9 Gout, unspecified; Z95.9 Presence of cardiac and vascular implant and graft, unspecified; Z82.49 Family history of ischemic heart disease and other diseases of the circulatory system; Z79.84 Long term (current) use of oral hypoglycemic drugs; Z77.22 Contact with and (suspected) exposure to environmental tobacco smoke (acute) (chronic)
CPT/HCPCS: 36415; 71046; 80053; 85025; 86308; 87430; 87804

== ENCOUNTER 2018-12-23 20:17 | Emergency (ER) | payer MEDICARE, OTHER ==
[~2018-12-23] VITALS: Ht 162.6 cm; Wt 98.0 kg
[2018-12-23 20:29] LABS: BASOPHILS % (AUTO) 0 % (0-10); EOSINOPHILS % (AUTO) 0 % (0-10); HEMATOCRIT 38 % (40-54); HEMOGLOBIN 13.6 G/DL (13.3-17.7); LYMPHOCYTES # (AUTO) 1.1 X 10^3 (1.0-4.0); LYMPHOCYTES % (AUTO) 18 % (12-44); MEAN CORPUSCULAR HEMOGLOBIN 31 PG (25-34); MEAN CORPUSCULAR HGB CONC 36 G/DL (32-36); MEAN CORPUSCULAR VOLUME 86 FL (80-99); MEAN PLATELET VOLUME 11.1 FL (7.4-10.4); MONOCYTES # (AUTO) 0.5 X 10^3 (0.0-1.0); MONOCYTES % (AUTO) 9 % (0-12); NEUTROPHILS # (AUTO) 4.4 X 10^3 (1.8-7.8); NEUTROPHILS % (AUTO) 73 % (42-75); PLATELET COUNT 139 10^3/uL (130-400); RED CELL DISTRIBUTION WIDTH 13.8 % (10.0-14.5); WHITE BLOOD COUNT 6.1 10^3/uL (4.3-11.0)
--- NOTE | 2018-12-23 20:34 | Diagnostic Imaging Report ---
INDICATION: Chest pain. COMPARISON STUDY: Chest from yesterday. FINDINGS: Portable view of the chest demonstrates the lungs to be clear. The heart, mediastinum, pulmonary vascularity, and visualized bony thorax are normal. IMPRESSION: Negative chest. Dictated by: Dictated on workstation # [id number]
[2018-12-23 20:43] LABS: INR 0.9 (0.8-1.4); PROTHROMBIN TIME PATIENT 12.9 SEC (12.2-14.7)
[2018-12-23 20:44] VITALS: BP 156/94
[2018-12-23 20:53] LABS: ALANINE AMINOTRANSFERASE 34 U/L (0-55); ALBUMIN 3.8 GM/DL (3.2-4.5); ALKALINE PHOSPHATASE 55 U/L (40-136); AMYLASE 147 U/L (25-125); BILIRUBIN,TOTAL 0.5 MG/DL (0.1-1.0); BUN/CREATININE RATIO 6; CALCIUM 8.5 MG/DL (8.5-10.1); CARBON DIOXIDE 21 MMOL/L (21-32); CHLORIDE 105 MMOL/L (98-107); CREATININE SERUM 2.03 MG/DL (0.60-1.30); GFR ESTIMATED 43; GLUCOSE 90 MG/DL (70-105); LIPASE 90 U/L (8-78); MAGNESIUM 1.7 MG/DL (1.8-2.4); POTASSIUM 3.4 MMOL/L (3.6-5.0); SODIUM 138 MMOL/L (135-145); TOTAL PROTEIN 7.1 GM/DL (6.4-8.2)
--- NOTE | 2018-12-23 22:22 | ED Chest Pain ---
General Chief Complaint: Chest Pain Stated Complaint: CHEST PAIN Nursing Triage Note: TO ED [facility] WITH C/O CHEST PAIN STARTED LAST NOC. WAS SEEN LAST NOC IN ER FOR FEVER. 324MG ASA AND 1 SL NITRO VIA EMS. Nursing Sepsis Screen: No Definite Risk Source: patient Exam Limitations: no limitations History of Present Illness Date Seen by Provider: Dec 23, 2018 Time Seen by Provider: 20:20 Initial Comments 48-year-old male who presents to the emergency room with complaints of chest pain for the past 24 hours. He was seen and evaluated in the emergency room last night for a fever but did not report that he was having chest pain while at that visit. He received 324 baby aspirin and 1 nitroglycerin sublingual via EMS that has resolved his pain. He is pain-free on arrival to the emergency room. He denies shortness of breath, nausea, vomiting, lightheadedness, dizziness, sweating. 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 NTG SL DATA ANALYST ETL DEVELOPER: Yes (1 that relieved chest pain) Associated Symptoms: denies symptoms Allergies and Home Medications Allergies Coded Allergies: NKANo Known Allergies (Verified Allergy, Unknown, 01/01/06) Home Medications Alprazolam 2 Mg Tablet, 2 MG PO BID PRN for ANXIETY, (Reported) Amlodipine Besylate 10 Mg Tablet, 10 MG PO DAILY, (Reported) Atorvastatin Calcium 40 Mg Tablet, 40 MG PO HS, (Reported) Buspirone HCl 10 Mg Tablet, 10 MG PO BID, (Reported) Cholecalciferol (Vitamin D3) 50,000 Unit Capsule, 50,000 UNIT PO WEEK, (Reported ) Colchicine 0.6 Mg Tablet, 0.6 MG PO DAILY, (Reported) Doxazosin Mesylate 8 Mg Tablet, 8 MG PO DAILY, (Reported) Esomeprazole Magnesium 40 Mg Capsule.dr, 40 MG PO DAILY, (Reported) Furosemide 20 Mg Tablet, 20 MG PO DAILY, (Reported) Gabapentin 300 Mg Capsule, 300 MG PO TID, (Reported) Hydrocodone/Acetaminophen 1 Each Tablet, 1-2 TAB PO Q4H PRN for PAIN-MODERATE Prescribed by: OBED KING on 10/25/18 1042 Isosorbide Mononitrate 60 Mg Tab, 60 MG PO HS, (Reported) Lidocaine 1 Each Adh..patch, 1-2 PATCH TP DAILY, (Reported) 2 patches max for 12 hours, then 12 hours patch-free period. Metformin HCl 500 Mg Tablet, 500 MG PO DAILY, (Reported) Metoprolol Succinate 200 Mg Tab.er.24h, 200 MG PO HS, (Reported) Montelukast Sodium 10 Mg Tablet, 10 MG PO HS, (Reported) Morphine Sulfate 15 Mg Tablet, 15 MG PO BID, (Reported) Morphine Sulfate 30 Mg Tablet.er, 30 MG PO BID, (Reported) Nitroglycerin 0.4 Mg Tab.subl, 0.4 MG SL UD PRN for CHEST PAIN, (Reported) Nortriptyline HCl 10 Mg Capsule, 10 MG PO DAILY, (Reported) [place]-3 Fatty Acids/Fish Oil 1 Each Capsule, 1 EACH PO BID, (Reported) Testosterone Cypionate 200 Mg/1 Ml Vial, 200 MG IM q 2 weeks, (Reported) Tizanidine HCl 4 Mg Tablet, 4 MG PO TID PRN for MUSCLE SPASMS, (Reported) Venlafaxine HCl 150 Mg Cap.er.24h, 150 MG PO HS, (Reported) Vilazodone Hydrochloride 40 Mg Tablet, 40 MG PO HS, (Reported) Patient Home Medication List Home Medication List Reviewed: Yes Review of Systems Review of Systems Constitutional: see HPI, fever Cardiovascular: See HPI, Chest Pain All Other Systems Reviewed Negative Unless Noted: Yes Past Yzsnxdg-Rvbsmv-Igojlt Hx Past Med/Social Hx: Reviewed Nursing Past Med/Soc Hx Patient Social History Alcohol Use: Denies Use Recreational Drug Use: No 2nd Hand Smoke Exposure: Yes Recent Foreign Travel: No Contact w/Someone Who Travel: No Recent Infectious Disease Expo: No Recent Hopitalizations: No Immunizations Up To Date Tetanus Booster (TDap): Less than 5yrs Date of Pneumonia Vaccine: Aug 27, 2013 Date of Influenza Vaccine: Aug 27, 2018 Seasonal Allergies Seasonal Allergies: No Past Medical History Surgeries: Yes (leg fx) Orthopedic Respiratory: Yes Sleep Apnea Currently Using CPAP: Yes Cardiac: Yes (heart cath) Heart Attack, Hypertension Neurological: No Reproductive Disorders: No Genitourinary: Yes (stage 3 renal failure) Renal Failure Gastrointestinal: Yes Gastroesophageal Reflux Musculoskeletal: Yes Chronic Back Pain, Fractures, Gout Endocrine: Yes Diabetes, Non-Insulin dep HEENT: Yes (hypertrophy nasal turbinates) Cancer: No Psychosocial: Yes Anxiety Integumentary: No Blood Disorders: No Family Medical History Reviewed Nursing Family Hx Cancer, CAD Under 55 Years Old, Diabetes, Hypertension Physical Exam Vital Signs Vital Signs - First Documented Capillary Refill : Less Than 3 Seconds Height, Weight, BMI Height: 5'4.00" Weight: 216lbs. 0.0oz. 97.272455iw; 37.6 BMI Method:Stated General Appearance: No Apparent Distress, WD/WN Respiratory: Chest Non Tender, Lungs Clear, Normal Breath Sounds, No Accessory Muscle Use, No Respiratory Distress Cardiovascular: Regular Rate, Rhythm, No Edema, No Gallop, No JVD, No Murmur, Normal Peripheral Pulses Gastrointestinal: Normal Bowel Sounds, No Organomegaly, No Pulsatile Mass, Non Tender Extremity: Normal Capillary Refill, No Pedal Edema Neurologic/Psychiatric: Alert, Oriented x3, Normal Mood/Affect Skin: Normal Color, Warm/Dry Progress/Results/Core Measures Results/Orders Lab Results Laboratory Tests Test 12/23/18 20:20 12/23/18 22:16 Range/Units White Blood Count 6.1 4.3-11.0 10^3/uL Red Blood Count 4.46 4.35-5.85 10^6/uL Hemoglobin 13.6 13.3-17.7 G/DL Hematocrit 38 L 40-54 % Mean Corpuscular Volume 86 80-99 FL Mean Corpuscular Hemoglobin 31 25-34 PG Mean Corpuscular Hemoglobin Concent 36 32-36 G/DL Red Cell Distribution Width 13.8 10.0-14.5 % Platelet Count 139 130-400 10^3/uL Mean Platelet Volume 11.1 H 7.4-10.4 FL Neutrophils (%) (Auto) 73 42-75 % Lymphocytes (%) (Auto) 18 12-44 % Monocytes (%) (Auto) 9 0-12 % Eosinophils (%) (Auto) 0 0-10 % Basophils (%) (Auto) 0 0-10 % Neutrophils # (Auto) 4.4 1.8-7.8 X 10^3 Lymphocytes # (Auto) 1.1 1.0-4.0 X 10^3 Monocytes # (Auto) 0.5 0.0-1.0 X 10^3 Eosinophils # (Auto) 0.0 0.0-0.3 10^3/uL Basophils # (Auto) 0.0 0.0-0.1 10^3/uL Prothrombin Time 12.9 12.2-14.7 SEC INR Comment 0.9 0.8-1.4 Activated Partial Thromboplast Time 38 H 24-35 SEC Sodium Level 138 135-145 MMOL/L Potassium Level 3.4 L 3.6-5.0 MMOL/L Chloride Level 105 98-107 MMOL/L Carbon Dioxide Level 21 21-32 MMOL/L Anion Gap 12 5-14 MMOL/L Blood Urea Nitrogen 13 7-18 MG/DL Creatinine 2.03 H 0.60-1.30 MG/DL Estimat Glomerular Filtration Rate 43 BUN/Creatinine Ratio 6 Glucose Level 90 70-105 MG/DL Calcium Level 8.5 8.5-10.1 MG/DL Corrected Calcium 8.7 8.5-10.1 MG/DL Magnesium Level 1.7 L 1.8-2.4 MG/DL Total Bilirubin 0.5 0.1-1.0 MG/DL Aspartate Amino Transf (AST/SGOT) 35 H 5-34 U/L Alanine Aminotransferase (ALT/SGPT) 34 0-55 U/L Alkaline Phosphatase 55 40-136 U/L Myoglobin 110.9 H 10.0-92.0 NG/ML Troponin I < 0.028 < 0.028 <0.028 NG/ML B-Type Natriuretic Peptide 10.6 <100.0 PG/ML Total Protein 7.1 6.4-8.2 GM/DL Albumin 3.8 3.2-4.5 GM/DL Amylase Level 147 H 25-125 U/L Lipase 90 H 8-78 U/L My Orders Orders - BERNOT,KESHAWN Cbc With Automated Diff (12/23/18 20:21) Magnesium (12/23/18 20:21) Chest 1 View, Ap/Pa Only (12/23/18 20:21) Ekg Tracing (12/23/18 20:21) Cardiac Profile 1 (12/23/18 20:21) Comprehensive Metabolic Panel (12/23/18 20:21) Myoglobin Serum (12/23/18 20:21) Protime With Inr (12/23/18 20:21) Partial Thromboplastin Time (12/23/18 20:21) O2 (12/23/18 20:21) Monitor-Rhythm Ecg Trace Only (12/23/18 20:21) Lipid Panel (12/24/18 06:00) Saline Lock/Iv-Start (12/23/18 20:21) Lipase (12/23/18 20:21) Amylase (12/23/18 20:21) BNP (12/23/18 20:21) Troponin I (12/23/18 22:14) Vital Signs/I&O 12/23/18 12/23/18 12/23/18 20:19 20:19 20:44 Temp 100.6 Pulse 109 Resp 18 B/P (MAP) 187/76 (113) 156/94 (114) O2 Delivery Room Air Room Air Blood Pressure Mean: 114 Progress Progress Note : Time: 21:35 Progress Note I have seen and evaluated the patient. I have informed him of his laboratory findings and imaging studies. I have discussed the case with Dr. Gee at this time and he recommends doing a 2 hour repeat troponin on the patient and if it is normal he can be discharged home. The patient agrees with plan of care. 2247 : The patient's repeat troponin was negative at this time. He is still pain- free at this time. He agrees with plan of care, plans for discharge, return precautions were given. Initial ECG Impression Date: Dec 23, 2018 Initial ECG Impression Time: 20:20 Initial ECG Rate: 106 Initial ECG Rhythm: Normal Sinus Initial ECG Intervals: Normal Initial ECG Impression: Normal Initial ECG Comparisson: Unchanged Diagnostic Imaging Diagonstic Imaging: Xray Plain Films/CT/US/NM/MRI: chest Comments NAME: JOSE PERALES [facility] REC#: [id number] PT STATUS: REG ER : 1970 PHYSICIAN: KESHAWN CARRINGTON ADMIT DATE: 12/23/18/ER Signed Date of Exam: 12/23/18 CHEST 1 VIEW, AP/PA ONLY INDICATION: Chest pain. COMPARISON STUDY: Chest from yesterday. FINDINGS: Portable view of the chest demonstrates the lungs to be clear. The heart, mediastinum, pulmonary vascularity, and visualized bony thorax are normal. IMPRESSION: Negative chest. Dictated by: Dictated on workstation # [id number] Dict: 12/23/182031 Trans: 12/23/182033 Interpreted by: LEANNA HAWK MD Electronically signed by: LEANNA HAWK MD 12/23/182033 Reviewed: Reviewed by Me Departure Impression Primary Impression: Chest pain Disposition: 01 HOME, SELF-CARE Condition: Stable/Unchanged Departure-Patient Inst. Decision time for Depature: 22:19 Referrals: NADIR NOEL MD (PCP/Family) Primary Care Physician Patient Instructions: Chest Pain (DC) Add. Discharge Instructions: Follow-up with your primary care provider within 1 week for recheck. Resume your home medications as previously prescribed. Be sure to have your primary care provider keep a close eye on your kidney function to prevent damage. Call first thing tomorrow morning for an appointment time. Return back to the emergency room for worsening symptoms, chest pain, shortness of breath, or any other concerns as needed. All discharge instructions reviewed with patient and/ or family. Voiced understanding. KESHAWN CARRINGTON Dec 23, 2018 22:22
[2018-12-23 22:50] VITALS: BP 147/81
== END 2018-12-23 22:53 | disposition home or self-care (01) ==
LOC: EDUNIT# 20:17 → ER 20:19
DX: R07.81 Pleurodynia (principal); G47.30 Sleep apnea, unspecified; I25.2 Old myocardial infarction; E11.22 Type 2 diabetes mellitus with diabetic chronic kidney disease; I12.9 Hypertensive chronic kidney disease with stage 1 through stage 4 chronic kidney disease, or unspecified chronic kidney disease; N18.3 Chronic kidney disease, stage 3 (moderate); M10.9 Gout, unspecified; K21.9 Gastro-esophageal reflux disease without esophagitis; F41.9 Anxiety disorder, unspecified; Z95.9 Presence of cardiac and vascular implant and graft, unspecified; Z79.84 Long term (current) use of oral hypoglycemic drugs; Z77.22 Contact with and (suspected) exposure to environmental tobacco smoke (acute) (chronic); Z82.49 Family history of ischemic heart disease and other diseases of the circulatory system
CPT/HCPCS: 36415; 71045; 80053; 82150; 83690; 83735; 83874; 83880; 84484; 85025; 85610; 85730; 93005; 93041